=== PATIENT | female | born 1950 | race Caucasian/White ===

== ENCOUNTER 2019-08-03 09:00 | Outpatient (RCR) | payer MEDICARE, OTHER, SELFPAY | END 2019-08-03 09:05 | disposition home or self-care (01) | LOC: PT 09:00 | PROVIDERS: Visit Provider Family Medicine | DX: I89.0 Lymphedema, not elsewhere classified (principal) | CPT/HCPCS: 97140; 97163 ==

== ENCOUNTER → 2019-08-03 10:14 | Outpatient (CLI) | payer MEDICARE, OTHER, SELFPAY | PROVIDERS: Visit Provider Family Medicine | DX: N39.0 Urinary tract infection, site not specified (principal); B96.20 Unspecified Escherichia coli [E. coli] as the cause of diseases classified elsewhere | CPT/HCPCS: 87086; 87088; 87186 ==

== ENCOUNTER 2019-09-04 02:38 | Inpatient (IN) ==
--- NOTE | 2019-09-04 02:48 | Emergency Department Note ---
ED Disposition Clinical Impression: Hyperglycemia, COPD exacerbation, Septic shock Acute respiratory failure Qualifiers: Respiratory failure complication: hypoxia and hypercapnia Qualified Code(s): J96.01 - Acute respiratory failure with hypoxia Disposition: Admitted As Inpatient Condition on Discharge: Critical Referrals: Huber Grossman [Primary Care Provider] - - Critical Care Critical Care Time: Yes Attestation: On , the high probability of a clinically significant, sudden or life threatening deterioration of the following system(s) required my full and direct attention, intervention and personal management. The time I documented below is in addition to time spent performing reported procedures but includes the following listed in this critical care notation. Total Critical Care Time: 50 Vital system(s) involved:: Respiratory Failure, Shock (Septic) My critical care processes included: Assessment & monitoring of V/S, Initial and Re-exams, Data Review/Interpretation, Coordinating Care, Medication Orders and management, Documentation Medical Decision Making - Nii Inquiry Pt receiving controlled substance: No Vital Signs: 09/04/19 02:48 09/04/19 03:24 09/04/19 03:25 Temperature 97.7 F Temperature Source Oral Pulse Rate 84 85 Pulse Rate [Right Brachial] 107 H Respiratory Rate 24 Blood Pressure [Right Arm] 155/70 H Blood Pressure Mean [Right Arm] 98 Blood Pressure Source [Right Arm] Automatic Cuff Blood Pressure Position [Right Arm] Supine 02 Sat by Pulse Oximetry 87 L Oxygen Delivery Method Nasal Cannula Oxygen Flow Rate (LPM) 4 09/04/19 04:00 09/04/19 04:10 09/04/19 04:35 Temperature Temperature Source Pulse Rate 89 87 Pulse Rate [Right Brachial] 82 Respiratory Rate Blood Pressure [Right Arm] 115/58 L Blood Pressure Mean [Right Arm] 77 Blood Pressure Source [Right Arm] Blood Pressure Position [Right Arm] 02 Sat by Pulse Oximetry 98 Oxygen Delivery Method Oxygen Flow Rate (LPM) 09/04/19 04:40 09/04/19 04:52 09/04/19 05:02 Temperature Temperature Source Pulse Rate Pulse Rate [Right Brachial] 99 H 82 Respiratory Rate 22 Blood Pressure [Right Arm] 98/58 L 108/62 L Blood Pressure Mean [Right Arm] 71 77 Blood Pressure Source [Right Arm] Blood Pressure Position [Right Arm] 02 Sat by Pulse Oximetry 98 95 Oxygen Delivery Method Mechanical Ventilation Oxygen Flow Rate (LPM) 09/04/19 05:15 09/04/19 05:30 09/04/19 05:45 Temperature Temperature Source Pulse Rate Pulse Rate [Right Brachial] 86 63 72 Respiratory Rate 22 20 20 Blood Pressure [Right Arm] 98/68 L 98/41 L 98/43 L Blood Pressure Mean [Right Arm] 78 60 61 Blood Pressure Source [Right Arm] Blood Pressure Position [Right Arm] 02 Sat by Pulse Oximetry 97 94 L 93 L Oxygen Delivery Method Mechanical Ventilation Mechanical Ventilation Mechanical Ventilation Oxygen Flow Rate (LPM) 09/04/19 06:00 09/04/19 06:17 09/04/19 06:28 Temperature Temperature Source Pulse Rate Pulse Rate [Right Brachial] 72 73 73 Respiratory Rate 20 20 20 Blood Pressure [Right Arm] 79/56 L 83/60 L 85/69 L Blood Pressure Mean [Right Arm] 63 67 74 Blood Pressure Source [Right Arm] Blood Pressure Position [Right Arm] Supine 02 Sat by Pulse Oximetry 93 L 100 93 L Oxygen Delivery Method Mechanical Ventilation Mechanical Ventilation Mechanical Ventilation Oxygen Flow Rate (LPM) 09/04/19 06:40 09/04/19 06:54 09/04/19 07:16 Temperature Temperature Source Pulse Rate Pulse Rate [Right Brachial] 74 74 77 Respiratory Rate 20 20 20 Blood Pressure [Right Arm] 100/65 L 105/69 L 111/67 Blood Pressure Mean [Right Arm] 76 81 81 Blood Pressure Source [Right Arm] Automatic Cuff Automatic Cuff Automatic Cuff Blood Pressure Position [Right Arm] Supine Supine Supine 02 Sat by Pulse Oximetry 94 L 92 L 94 L Oxygen Delivery Method Mechanical Ventilation Mechanical Ventilation Mechanical Ventilation Oxygen Flow Rate (LPM) - Lab Data Lab Results 09/04/19 02:50: WBC 10.5, RBC 5.03, Hgb 14.9, Hct 51.7 H, MCV 102.9 H, MCH 29.7, MCHC 28.8 L, RDW 15.3, Plt Count 204, MPV 7.7, Neut % (Auto) 79.0, Lymph % (Auto) 14.3, [place] % (Auto) 5.2, Eos % (Auto) 1.0, Baso % (Auto) 0.5, Neut # (Auto) 8.3 H, Lymph # (Auto) 1.5, [place] # (Auto) 0.5, Eos # (Auto) 0.1, Baso # (Auto) 0.1 09/04/19 02:50: Sodium 143, Potassium 4.8, Chloride 101, Carbon Dioxide 41 H*, Anion Gap 5.8, BUN 13, Creatinine 0.81, Estimated Creat Clear 41, Estimated GFR 70, Est GFR ( Amer) 85, Glucose 298 H, Calcium 9.1, Total Bilirubin 0.1 L , AST 14 L, ALT 33, Alkaline Phosphatase 82, Troponin I < 0.02, Total Protein 7.0, Albumin 2.9 L, Globulin 4.1 H, Albumin/Globulin Ratio 0.7 L 09/04/19 02:50: Lactate 1.3 09/04/19 02:50: B-Natriuretic Peptide 83 09/04/19 02:59: Specimen Source R/r, O2 % 4, ABG pH 7.16 L*, ABG pCO2 115.5 H, ABG pO2 84.1, ABG HCO3 39.9 H, ABG Total CO2 43.4 H, ABG O2 Saturation 94, ABG Base Excess 11.1 H, Cesar Test Y 09/04/19 03:32: Urine Color Yellow, Urine Appearance Slightly cloudy, Urine pH 5.5, Ur Specific [place] >= 1.030, Urine Protein 1+, Urine Glucose (UA) 3+, Urine Ketones Negative, Urine Blood 3+, Urine Nitrate Negative, Urine Bilirubin Negative, Urine Urobilinogen 0.2, Ur Leukocyte Esterase 1+ A, Urine RBC 10-20, Urine WBC 5-10, Urine Bacteria 2+ 09/04/19 04:03: Specimen Source R/r, O2 % 80, ABG pH 7.16 L*, ABG pCO2 131.1 H, ABG pO2 64.0 L, ABG HCO3 45.6 H, ABG Total CO2 49.6 H, ABG O2 Saturation 88 L, ABG Base Excess 16.9 H, Cesar Test Y, Vent Rate 21 09/04/19 05:45: Specimen Source Right radial, O2 % 100, ABG pH 7.46 H, ABG pCO2 46.7 H, ABG pO2 144.3 H, ABG HCO3 32.2 H, ABG Total CO2 33.7 H, ABG O2 Saturation 99, ABG Base Excess 8.4 H, Cesar Test N/a, Vent Rate 20, Tidal Volume 500, PEEP 5 09/04/19 05:58: Troponin I 0.02 Result diagrams: 09/04/19 02:50 09/04/19 02:50 Orders (Tests/Meds): ED MEDICATIONS Generic Name Dose Route Start Last Admin Trade Name Diegoq PRN Reason Stop Dose Admin Albuterol/Ipratropium 3 ml 09/04/19 03:30 09/04/19 04:00 Duoneb 3ml Neb IH 09/04/19 03:51 3 ml Q20M DEVAN Administration Azithromycin 500 mg/ Sodium 250 mls @ 250 mls/hr 09/04/19 04:00 09/04/19 03:55 Chloride IV 09/18/19 03:59 250 mls/hr Q24H DEVAN Administration Protocol Ertapenem 1 gm/ Sodium 50 mls @ 100 mls/hr 09/04/19 05:15 09/04/19 05:48 Chloride IV 09/18/19 05:14 100 mls/hr Q24H DEVAN Administration Protocol Propofol 100 mls @ 13.717 mls/hr 09/04/19 05:30 09/04/19 06:36 Diprivan 10mg/Ml 100ml Bottle IV 10/04/19 05:29 13.717 mls/hr .Q7H18M DEVAN Administration Protocol 10 MCG/KG/MIN Lactated Ringer's 1,000 mls @ 999 mls/hr 09/04/19 06:30 09/04/19 06:23 Lactated Ringer's 1000 Ml Bag IV 09/04/19 07:30 999 mls/hr .Q1H1M DEVAN Administration Lactated Ringer's 6,860 mls @ 3,430 mls/hr 09/04/19 06:45 09/04/19 06:50 Lactated Ringer's 1000 Ml Bag 30 ml/kg infuse over 2 hr (6860 ml) 09/04/19 08:44 3,430 mls/hr IV Administration .Q2H ONE Sodium Chloride 1,000 mls @ 999 mls/hr 09/04/19 07:00 09/04/19 04:30 Sod Chlor 0.9% 1000ml Bag IV 09/04/19 08:00 999 mls/hr .Q1H1M DEVAN Administration Discontinued Medications Generic Name Dose Route Start Last Admin Trade Name Michele PRN Reason Stop Dose Admin Albuterol/Ipratropium 3 ml 09/04/19 02:44 09/04/19 03:00 Duoneb 3ml Neb IH 09/04/19 02:45 3 ml ONCE ONE Administration Furosemide 40 mg 09/04/19 03:46 09/04/19 03:54 Lasix 40mg/4ml Vial IV 09/04/19 03:47 40 mg ONCE ONE Administration Ketamine HCl 100 mg 09/04/19 04:30 09/04/19 05:26 Ketamine 500mg/10ml Vial IV 09/04/19 04:31 100 mg ONCE ONE Administration Methylprednisolone Sodium Succinate 125 mg 09/04/19 02:44 09/04/19 03:11 Solu-Medrol 125mg/2ml Vial IV 09/04/19 02:45 125 mg ONCE ONE Administration Succinylcholine Chloride 200 mg 09/04/19 04:30 09/04/19 05:27 Anectine 20mg/Ml 10ml Mdv IV 09/04/19 04:31 200 mg ONCE ONE Administration ORDERS Category Date Time Status CXR --portable [XR chest portable] Stat Exams 09/04/19 04:35 Taken XR chest portable Stat Exams 09/04/19 02:43 Taken Troponin I Q3H Lab 09/04/19 08:45 Ordered Blood Culture Stat Micro 09/04/19 02:50 Received Urine Culture Stat Micro 09/04/19 03:32 Received Arterial Blood Gas Stat RT 09/04/19 07:16 Ordered - Radiology Data #1 Image(s): Chest Image Reviewed: Yes I reviewed the patient's radiology image poor penetration, poor inspiration. cardiomegaly. increased interstitial markings bilaterally. no definite effusions. no old films for comparison. #2 Image(s): Chest Image Reviewed: Yes I reviewed the patient's radiology image Endotracheal tube in good position. Questionable left basilar infiltrate. - ECG Data Tracing #1 EKG interpreted by Guille Quinn MD: Rhythm: sinus tachycardia Rate: 105 [place]: normal Ectopy: none Conduction: normal ST Segment Changes: none T Wave Changes: none Q Waves: none No evidence of acute ischemia or injury Low voltage QRS - Physician Consults Physician Consulted: Elba AGUILAR stain maker Time: 05:30 Reason -: Transfer to another facilty Comment/Response: No available beds, a very long wait list, it would be at least a couple of days before they could accept transfer Additional Consult: Heather Time: 05:44 Reason -: Admission Comment/Response: Agrees to admit the patient to the hospital. We discussed the patient's clinical information, including history, exam, laboratory and radiology results and ED course. Per hospital procedure, I will write temporary bridge inpatient orders on the patient. Specific orders requested by the admitting physician: Admit to ICU, continue ventilator, continue antibiotics, steroids, nebulizer treatments. - Reevaluation(s) Time: 03:10 Reevaluation #1: Pain still present, but improved after Dilaudid - Tissue Perfus/Sepsis Re-Eval Sepsis Re-Evaluation Performed: Yes Date Performed: 09/04/19 Time Performed: 06:49 Medical Decision Narrative: 4:30 AM: Second ABG was worse than first. Patient is also more somnolent. Discussed intubation with family, they are in agreement. Unable to discuss with patient due to mental status. Rapid sequence intubation performed. 4:50 AM: Postintubation portable chest x-ray shows endotracheal tube above the [place], but low in the trachea. Tube had slipped down to 23 cm at the teeth, it was withdrawn to 21 cm teeth and x-ray repeated with improved position of the tube just below the clavicles. 5:00 AM: Discussed disposition with family. Patient's primary care provider goes to [facility] and family would prefer to attempt transfer there. Call placed, put on a wait list (#4 on the list). Discussed penicillin allergy, family states her allergy is anaphylactic. Discussed antibiotic coverage for possible pneumonia with [facility] pharmacist, in light of allergies. He recommends Invanz plus Zithromax. 5:35 AM: [facility] contacted. They have an ICU weight of at least 35 hours. General Adult HPI - General Stated complaint: LETHARGIC; SHORTNESS OF BREATH Time Seen by Provider: 09/04/19 02:38 - History of Present Illness HPI narrative: Brought in by ambulance for shortness of air and lethargy. History from patient is limited due to mental status. She has a reported history of COPD with CO2 retention, she is on home oxygen and has CPAP at home as well. She reports that she is a former smoker. She reports recent cough and shortness of breath. EMS reports that when they arrived pulse ox on 4 L was low 80s. On 6 L they were able to get it up to the upper 80s. They then put her on a nonrebreather mask during transport. - Related Data Home Medications Medication Instructions Recorded Confirmed Olmesartan Medoxomil [Benicar] 20 mg PO DAILY 06/11/19 09/04/19 Omeprazole [Omeprazole 20mg 20 mg PO DAILY 06/11/19 09/04/19 Capsule] diazePAM [diazePAM 5mg Tablet] 1 tab PO BID PRN 06/11/19 09/04/19 dilTIAZem HCl [Dilt-Xr] 1 cap PO DAILY 06/11/19 09/04/19 Aspirin [Aspirin 81mg EC Tab] 81 mg PO DAILY 09/04/19 09/04/19 Budesonide/Formoterol Fumarate 2 puffs IH BID 09/04/19 09/04/19 [Symbicort 160-4.5 Mcg Inhaler] Cetirizine HCl [Zyrtec] 10 mg PO DAILY 09/04/19 09/04/19 Ergocalciferol (Vitamin D2) 1 cap PO WEEKLY 09/04/19 09/04/19 [Drisdol 50,000 units (1.25mg) capsule] Furosemide [Furosemide 40MG tAB] 40 mg PO DAILY 09/04/19 09/04/19 Potassium Chloride 10 meq PO DAILY 09/04/19 09/04/19 Rivaroxaban [Xarelto 20mg Tablet*] 20 mg PO DAILY 09/04/19 09/04/19 Rosuvastatin Calcium 10 mg PO HS 09/04/19 09/04/19 glipiZIDE [Glucotrol Xl] 5 mg PO BID 09/04/19 09/04/19 predniSONE [Deltasone 10mg tablet] 60 mg PO DAILY 09/04/19 09/04/19 Allergies Allergy/AdvReac Type Severity Reaction Status Date / Time ciprofloxacin [From Cipro] Allergy Verified 06/11/19 16:05 codeine Allergy Verified 06/11/19 16:05 Gadolinium-Containing Allergy Verified 06/11/19 16:05 Contrast Medi Iodinated Contrast Media - Allergy Verified 06/11/19 16:05 Oral and Penicillins Allergy Verified 06/11/19 16:05 [facility] History - Hepatitis A Screen Attestation statement:: This patient has been screened for Hepatitis A risk factors. I have reviewed the patient's past medical history: Yes 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: Reports:: Cancer (FACE) Fractures: Yes (FOOT) - Social History Alcohol Intake: never Occupational Status: other ROS Obtained: Yes unobtainable due to mental status Physical Exam - General General appearance: lethargic, other Comment: Lays with eyes closed, but speaks and answers questions. Speech is moderately slurred, at times difficult to understand, other times much more clear. - Head Head exam: atraumatic, normocephalic - ENT ENT exam: Present: mucous membranes moist - Neck Neck exam: Present: normal inspection, full ROM, trachea midline - Respiratory Respiratory exam: Present: accessory muscle use, other (Diminished breath sounds bilaterally) - Cardiovascular Cardiovascular exam: Present: tachycardia - Abdominal Exam Abdominal exam: Present: soft. Absent: tenderness - Extremities Exam Extremities exam: Present: pedal edema, other (3+ edema of legs) - Neurological Exam Neurological exam: Present: other (Lethargic) - Skin Skin exam: Present: warm, dry Procedures - Miscellaneous Procedure Procedure Performed: Endotracheal Intubation Performed by: GUILLE QUINN Consent: The procedure was performed in an emergent situation. Patient identity confirmed: arm band Indications: respiratory failure Intubation method: Direct laryngoscopy with neuromuscular blockade (RSI) Sedatives: Ketamine 100 mg Paralytic: Succinylcholine 200 mg Laryngoscope: Direct Tube size: 7.5 mm Tube type: cuffed Number of attempts: 1 Cords visualized: yes Post-procedure assessment: chest rise and CO2 detector Breath sounds: equal and absent over the epigastrium Cuff inflated: yes ETT to teeth: 20 cm Tube secured with: ETT james Chest x-ray interpreted by me. Chest x-ray findings: endotracheal tube in appropriate position Patient tolerance: Patient tolerated the procedure well with no immediate complications.
[2019-09-04 03:00] LABS: ABG Base Excess 11.1 mmol/L (-2.4-2.3); ABG HCO3 39.9 mmhg (22.0-26.0); ABG Oxygen Saturation 94 % (90-100); ABG PO2 84.1 mmhg (80-100); ABG TCO2 43.4 mmhg (23-27)
[2019-09-04 03:08] LABS: Basophils # 0.1 K/mm3 (0-0.2); Basophils % 0.5 % (0.1-2.0); Eosinophils # 0.1 K/mm3 (0.0-0.4); Hematocrit 51.7 % (37.0-47.0); Hemoglobin 14.9 g/dL (12.2-16.2); Lymphocytes # 1.5 K/mm3 (0.7-4.5); Lymphocytes % 14.3 % (10-50); Mean Corpuscular HGB Conc 28.8 g/dL (31.8-35.4); Mean Corpuscular Volume 102.9 fl (81-99); Mean Platelet Volume 7.7 fl (7.4-10.4); Monocytes # 0.5 K/mm3 (0.1-1.0); Monocytes % 5.2 % (1.7-9.3); Neutrophils # 8.3 K/mm3 (1.8-7.8); Platelet Count 204 K/mm3 (142-424); Red Blood Count 5.03 M/mm3 (4.20-5.40); Red Cell Distribution Width 15.3 % (11.5-17.5); White Blood Count 10.5 K/mm3 (4.8-10.8)
[2019-09-04 03:20] LABS: ABG PH 7.16 mmol/L (7.35-7.45); Allen's Test Y; Oxygen 4 %
[2019-09-04 03:21] LABS: ABG PCO2 115.5 mmhg (35.0-45.0)
[2019-09-04 03:24] LABS: Alanine Aminotransferase 33 U/L (12-78); Albumin Level 2.9 gm/dL (3.4-5.0); Albumin/Globulin Ratio 0.7 (1.1-1.8); Alkaline Phosphatase 82 U/L (46-116); Anion Gap 5.8 mEq/L (5-15); Aspartate Amino Transferase 14 U/L (15-37); Bilirubin,Total 0.1 mg/dL (0.2-1.0); Blood Urea Nitrogen 13 mg/dL (7-18); Calcium 9.1 mg/dL (8.5-10.1); Carbon Dioxide 41 mmol/L (21.0-32.0); Chloride 101 mmol/L (98-107); Globulin 4.1 gm/dl (1.3-3.2); Glucose 298 mg/dL (74-106); Sodium 143 mmol/L (136-145)
[2019-09-04 03:58] LABS: Microscopic, Urine URINE MICROSCOPIC (MICROSCOPIC)
[2019-09-04 04:00] LABS: Bilirubin,Urine Negative (Negative); Blood, Urine 3+ (Negative); Color,Urine YELLOW (Yellow); Glucose,Urine (UA) 3+ (Negative); Ketones,Urine Negative (Negative); Leukocyte Esterase,Urine 1+ (Negative); PH,Urine 5.5 (5.0-8.5); Protein,Urine 1+ (Negative); Specific Gravity, Urine >= 1.030 (1.005-1.030); Urobilinogen,Urine 0.2 EU/dl (0.2)
[2019-09-04 04:02] LABS: Appearance,Urine Slightly Cloudy (Clear)
[2019-09-04 04:05] LABS: ABG Base Excess 16.9 mmol/L (-2.4-2.3); ABG HCO3 45.6 mmhg (22.0-26.0); ABG Oxygen Saturation 88 % (90-100); ABG TCO2 49.6 mmhg (23-27)
[2019-09-04 04:05] LABS: Bacteria,Urine 2+ /lpf
[2019-09-04 04:07] LABS: Oxygen 80 %
[2019-09-04 04:08] LABS: Allen's Test Y
[2019-09-04 04:10] LABS: ABG PCO2 131.1 mmhg (35.0-45.0); ABG PH 7.16 mmol/L (7.35-7.45)
[2019-09-04 06:09] LABS: ABG Base Excess 8.4 mmol/L (-2.4-2.3); ABG HCO3 32.2 mmhg (22.0-26.0); ABG Oxygen Saturation 99 % (90-100); ABG PCO2 46.7 mmhg (35.0-45.0); ABG PH 7.46 mmol/L (7.35-7.45); ABG PO2 144.3 mmhg (80-100); ABG TCO2 33.7 mmhg (23-27)
[2019-09-04 06:11] LABS: Oxygen 100 %; PEEP 5; Tidal Volume 500
[2019-09-04 10:52] LABS: ABG Base Excess 12.2 mmol/L (-2.4-2.3); ABG HCO3 34.7 mmhg (22.0-26.0); ABG Oxygen Saturation 94 % (90-100); ABG PO2 56.9 mmhg (80-100); ABG TCO2 35.9 mmhg (23-27)
[2019-09-04 10:53] LABS: Oxygen 32 %; PEEP 5; Tidal Volume 450
[2019-09-04 10:54] LABS: ABG PH 7.55 mmol/L (7.35-7.45)
--- NOTE | 2019-09-04 11:10 | History & Physical Report ---
*Admission Date: 09/04/19 *Chief complaint: AMS *History of present illness: Ms. Lester is a 69-year-old female with morbid obesity and obstructive sleep apnea who presented due to worsening confusion and altered mental status overnight. Patient wears a CPAP and lives with her son. He states that she has been having episodes where she is been acting differently lately. Yesterday she was more confused and not acting herself and the family was concerned for something being wrong so they brought her to the ER. They deny any acute illness with cough, fever, nausea vomiting or diarrhea. On presentation she was found to have some mottling in her feet and to be in acute hypercarbic respiratory failure with altered mental status. BiPAP was attempted in the ER with poor response leading to intubation. Patient was intubated in the ER with significant improvement in her respiratory acidosis and improvement in ability to ventilate. Attempts were made to transfer to tertiary care given the complexity of the patient and these were unsuccessful at this time. She is awaiting transfer and placed on a waiting list for [facility] pending availability of an ICU bed. On my assessment she winces to pain but is sedated on propofol. Continuing to require ventilatory support. Family at bedside who gave good history about patient's medical concerns of late. 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 Is poorly compliant with her medical treatment. Takes Valium 1-2 times a day as needed. Has been having worsening health since the passing of her late and retiring from . They are concerned for her need for subspecialty care and the complexities of her medical care. [facility] History I have reviewed the patient's past medical history: Yes 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: Reports:: Cancer (FACE), Home Oxygen *Have you ever received a pneumonia vaccine?: Yes *Have you received a flu vaccine this season?: Yes Fractures: Yes (FOOT) - *Social History Alcohol Intake: never Substance Use Type: denies use *Occupational Status:: other *Travel in the last 8 weeks: None Family Hx:: Unable to obtain Review of Systems - Review of Systems Review of systems:: pertinent systems reviewed and negative unless documented below Meds Home Medications Medication Instructions Recorded Confirmed Type Olmesartan Medoxomil [Benicar] 20 mg PO DAILY 06/11/19 09/04/19 History Omeprazole [Omeprazole 20mg 20 mg PO DAILY 06/11/19 09/04/19 History Capsule] diazePAM [diazePAM 5mg Tablet] 1 tab PO BID PRN 06/11/19 09/04/19 History dilTIAZem HCl [Dilt-Xr] 1 cap PO DAILY 06/11/19 09/04/19 History Aspirin [Aspirin 81mg EC Tab] 81 mg PO DAILY 09/04/19 09/04/19 History Budesonide/Formoterol Fumarate 2 puffs IH BID 09/04/19 09/04/19 History [Symbicort 160-4.5 Mcg Inhaler] Cetirizine HCl [Zyrtec] 10 mg PO DAILY 09/04/19 09/04/19 History Ergocalciferol (Vitamin D2) 1 cap PO WEEKLY 09/04/19 09/04/19 History [Drisdol 50,000 units (1.25mg) capsule] Furosemide [Furosemide 40MG tAB] 40 mg PO DAILY 09/04/19 09/04/19 History Potassium Chloride 10 meq PO DAILY 09/04/19 09/04/19 History Rivaroxaban [Xarelto 20mg Tablet*] 20 mg PO DAILY 09/04/19 09/04/19 History Rosuvastatin Calcium 10 mg PO HS 09/04/19 09/04/19 History glipiZIDE [Glucotrol Xl] 5 mg PO BID 09/04/19 09/04/19 History predniSONE [Deltasone 10mg tablet] 60 mg PO DAILY 09/04/19 09/04/19 History Allergies Allergy/AdvReac Type Severity Reaction Status Date / Time ciprofloxacin [From Cipro] Allergy Verified 06/11/19 16:05 codeine Allergy Verified 06/11/19 16:05 Gadolinium-Containing Allergy Verified 06/11/19 16:05 Contrast Medi Iodinated Contrast Media - Allergy Verified 06/11/19 16:05 Oral and Penicillins Allergy Verified 06/11/19 16:05 Exam Vital signs and Labs for Last 24 Hours: Temp Pulse Resp BP Pulse Ox 97.7 F 75 20 109/74 L 94 L 09/04/19 07:37 09/04/19 08:18 09/04/19 07:37 09/04/19 07:52 09/04/19 08:10 Laboratory Results - last 24 hr 09/04/19 02:50: WBC 10.5, RBC 5.03, Hgb 14.9, Hct 51.7 H, MCV 102.9 H, MCH 29.7, MCHC 28.8 L, RDW 15.3, Plt Count 204, MPV 7.7, Neut % (Auto) 79.0, Lymph % (Auto) 14.3, [place] % (Auto) 5.2, Eos % (Auto) 1.0, Baso % (Auto) 0.5, Neut # (Auto) 8.3 H, Lymph # (Auto) 1.5, [place] # (Auto) 0.5, Eos # (Auto) 0.1, Baso # (Auto) 0.1 09/04/19 02:50: Sodium 143, Potassium 4.8, Chloride 101, Carbon Dioxide 41 H*, Anion Gap 5.8, BUN 13, Creatinine 0.81, Estimated Creat Clear 41, Estimated GFR 70, Est GFR ( Amer) 85, Glucose 298 H, Calcium 9.1, Total Bilirubin 0.1 L , AST 14 L, ALT 33, Alkaline Phosphatase 82, Troponin I < 0.02, Total Protein 7.0, Albumin 2.9 L, Globulin 4.1 H, Albumin/Globulin Ratio 0.7 L 09/04/19 02:50: Lactate 1.3 09/04/19 02:50: B-Natriuretic Peptide 83 09/04/19 02:59: Specimen Source R/r, O2 % 4, ABG pH 7.16 L*, ABG pCO2 115.5 H, ABG pO2 84.1, ABG HCO3 39.9 H, ABG Total CO2 43.4 H, ABG O2 Saturation 94, ABG Base Excess 11.1 H, Cesar Test Y 09/04/19 03:32: Urine Color Yellow, Urine Appearance Slightly cloudy, Urine pH 5.5, Ur Specific [place] >= 1.030, Urine Protein 1+, Urine Glucose (UA) 3+, Urine Ketones Negative, Urine Blood 3+, Urine Nitrate Negative, Urine Bilirubin Negative, Urine Urobilinogen 0.2, Ur Leukocyte Esterase 1+ A, Urine RBC 10-20, Urine WBC 5-10, Urine Bacteria 2+ 09/04/19 04:03: Specimen Source R/r, O2 % 80, ABG pH 7.16 L*, ABG pCO2 131.1 H, ABG pO2 64.0 L, ABG HCO3 45.6 H, ABG Total CO2 49.6 H, ABG O2 Saturation 88 L, ABG Base Excess 16.9 H, Cesar Test Y, Vent Rate 21 09/04/19 05:45: Specimen Source Right radial, O2 % 100, ABG pH 7.46 H, ABG pCO2 46.7 H, ABG pO2 144.3 H, ABG HCO3 32.2 H, ABG Total CO2 33.7 H, ABG O2 Saturation 99, ABG Base Excess 8.4 H, Cesar Test N/a, Vent Rate 20, Tidal Volume 500, PEEP 5 09/04/19 05:58: Troponin I 0.02 09/04/19 09:00: Troponin I < 0.02 09/04/19 10:45: Specimen Source Right radial, O2 % 32, ABG pH 7.55 H, ABG pCO2 41.0, ABG pO2 56.9 L, ABG HCO3 34.7 H, ABG Total CO2 35.9 H, ABG O2 Saturation 94, ABG Base Excess 12.2 H, Cesar Test N/a, Vent Rate 16, Tidal Volume 450, PEEP 5 I & O for Last 24 hours: Intake & Output 09/01/19 09/02/19 09/03/19 09/04/19 23:59 23:59 23:59 23:59 Intake Total 4200 / 4200 Output Total 700 / 700 Balance 3500 / 3500 Weight 150.7 kg - Constitutional no acute distress, morbidly obese - *Routine HEENT Exam Head: Present: cushingoid faces Eye: Present: PERRL ENT: Present: mucous membranes moist - *Routine Neck Exam Present: supple. Absent: lymphadenopathy Comments: Very large neck circumference - *Routine Respiratory Exam Present: distant breath sounds Comments: Poor inspiration, crackles in bases bilaterally - *Routine Cardiovascular Exam Present: RRR Comments: Distant heart sounds - *Routine Abdominal Exam Present: soft, normoactive bowel sounds. Absent: tenderness Comments: Obese - *Routine Extremities Exam Present: edema (3+ to thigh). Absent: cyanosis, clubbing Comments: Erythema with venous stasis changes bilateral shins and feet, no petechiae or purpura - *Routine Skin Exam Present: warm. Absent: rash - *Routine Neurological Exam Sedated, winces to pain, does not vocalize. Does not respond to voice. Does not spontaneously open eyes Assessment and Plan (1) Acute on chronic respiratory failure with hypoxemia Current visit: Yes Status: Acute Category: Medical Code(s): J96.21 - Acute and chronic respiratory failure with hypoxia (2) Hypercapnia Current visit: Yes Status: Acute Category: Medical Code(s): R06.89 - Other abnormalities of breathing (3) Mixed acid base balance disorder Current visit: Yes Status: Acute Category: Medical Code(s): E87.4 - Mixed disorder of acid-base balance (4) Acute respiratory distress syndrome (ARDS) Current visit: Yes Status: Acute Category: Medical Code(s): J80 - Acute respiratory distress syndrome PaO2 to FiO2 ratio of 190. Moderate ARDS. -Ventilation treatment per [email or web address] protocol. Transition tidal volume to 8 mill per kg of ideal body weight. Recommended range for 6 to 8 mL's per kg of 330 to 440 mL tidal volume. Respiratory acidosis-briskly responded to intubation and ventilation. Repeat gas most recently with respiratory alkalosis due to overcorrection to normal physiologic CO2. Made further adjustment with rate of 12, tidal volume 400 from initial setting of rate of 20, tidal volume 500. -Patient's mortality based on her large classification of greater than 30% - Assessment and plan all Dx Assessment and Plan for all problems:: 69-year-old female with acute on chronic hypoxemic respiratory failure with hypercapnia and respiratory acidosis. Chronic metabolic alkalosis as compensation for her chronic low-level respiratory acidosis. Had acute worsening it appears of her respiratory acidosis with CO2 retention overnight leading to her obtundation, presentation, intubation. Chest x-ray concerning for questionable pneumonia. Started on broad-spectrum antibiotics based on patient's allergies. Sliding scale insulin for diabetes management Continue to adjust ventilator as needed per [employer] protocol. Has moderate ARDS. Repeat labs this evening and will assess thyroid function his family is concerned she has a thyroid disorder that is untreated. Of note, her tox screen shows benzos which may have been a complicating factor in her respiratory failure. Continue sedation with propofol for Rass goal of 0-1. 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 Patient is critically ill with poor prognosis. Lovenox for DVT prophylaxis, SCUDs as well N.p.o. Supplemental oxygen as needed on ventilator with goal greater than 92% for titration Remains full code Protonix for GI prophylaxis Repeat ABG this evening to monitor for stability on ventilator settings. Currently on a rate of 12 volume of 400 which is approximately 7 mL's per kg of ideal body weight. Lab work in the morning to monitor kidney function and electrolytes Critical CARE time: 30 minutes the high probability of a clinically significant, sudden or life threatening deterioration of patient required my full and direct attention, intervention and personal management. The time I documented below is in addition to time spent performing reported procedures but includes the following listed in this critical care notation. Critical care consisting of ventilator management, hemodynamic management, sedation management, metabolic disturbance management and diabetes management
[2019-09-04 11:14] LABS: Amphetamine/Metha Screen,Urine Negative ng/mL (<1000); Barbiturates Screen,Urine Negative ng/mL (<200); Benzodiazepines Screen,Urine Positive ng/mL (<200); Cannabinoid Screen,Urine Negative ng/mL (<50); Cocaine Screen,Urine Negative ng/mL (<300); Methadone Screen,Urine Negative ng/mL (<300); Opiate Screen,Urine Negative ng/mL (<300); Phencyclidine Screen,Urine Negative ng/mL (<25)
--- NOTE | 2019-09-04 11:32 | Pharmacy Consult Notes ---
[facility] Pharmacy VTE Monitoring - Patient Demographics Admission date: 09/04/19 Report Date: 09/04/19 Time: 11:31 Allergies/Adverse Reactions: Patient Allergies ciprofloxacin [From Cipro] Allergy (Verified 06/11/19 16:05) codeine Allergy (Verified 06/11/19 16:05) Gadolinium-Containing Contrast Medi Allergy (Verified 06/11/19 16:05) Iodinated Contrast Media - Oral and Allergy (Verified 06/11/19 16:05) Penicillins Allergy (Verified 06/11/19 16:05) Height: 1.57 m Weight: 150.7 kg Patient Problems: Current Active Problems Acute respiratory failure (Acute) Hyperglycemia (Acute) COPD exacerbation (Acute) Septic shock (Acute) - VTE Risk Labs: VTE Related Lab Results Hgb 14.9 g/dL (12.2-16.2) 09/04/19 02:50 Hct 51.7 % (37.0-47.0) H 09/04/19 02:50 Plt Count 204 K/mm3 (142-424) 09/04/19 02:50 BUN 13 mg/dL (7-18) 09/04/19 02:50 Creatinine 0.81 mg/dL (0.55-1.02) 09/04/19 02:50 Estimated Creat Clear 41 mL/min (50-200) 09/04/19 02:50 VTE Score: 7 VTE Risk Level: Moderate Risk - Prophylaxis VTE Prophylaxis Ordered?: Yes Types of VTE Prophylaxis: TEDS Knee High Location of Applied Device: Bilateral Lower Extremeties - VTE Diagnosis Confirmed Treatment or plan recommended: Continue Current Treatment
[2019-09-04 14:21] LABS: ABG Base Excess 8.5 mmol/L (-2.4-2.3); ABG HCO3 32.8 mmhg (22.0-26.0); ABG Oxygen Saturation 91 % (90-100); ABG PH 7.43 mmol/L (7.35-7.45); ABG PO2 56.3 mmhg (80-100); ABG TCO2 34.4 mmhg (23-27)
[2019-09-04 14:24] LABS: Oxygen 32 %; PEEP 5; Tidal Volume 400
[2019-09-04 14:25] LABS: ABG PCO2 50.6 mmhg (35.0-45.0)
[2019-09-04 19:58] LABS: ABG Base Excess 13.3 mmol/L (-2.4-2.3); ABG HCO3 37.7 mmhg (22.0-26.0); ABG Oxygen Saturation 87 % (90-100); ABG PH 7.43 mmol/L (7.35-7.45); ABG TCO2 39.4 mmhg (23-27)
[2019-09-04 19:59] LABS: Allen's Test Y; Oxygen 32 %; PEEP 5; Tidal Volume 400
[2019-09-04 20:47] LABS: Basophils % 0.1 % (0.1-2.0); Eosinophils # 0.1 K/mm3 (0.0-0.4); Eosinophils % 0.9 % (0.1-12.0); Hematocrit 46.2 % (37.0-47.0); Lymphocytes # 0.7 K/mm3 (0.7-4.5); Lymphocytes % 10.8 % (10-50); Mean Corpuscular HGB Conc 30.4 g/dL (31.8-35.4); Mean Corpuscular Volume 99.7 fl (81-99); Mean Platelet Volume 8.8 fl (7.4-10.4); Monocytes # 0.3 K/mm3 (0.1-1.0); Neutrophils # 5.3 K/mm3 (1.8-7.8); Neutrophils % 84.1 % (37.0-80.0); Platelet Count 173 K/mm3 (142-424); Red Blood Count 4.64 M/mm3 (4.20-5.40); Red Cell Distribution Width 15.3 % (11.5-17.5); White Blood Count 6.3 K/mm3 (4.8-10.8)
[2019-09-04 20:52] LABS: ABG PCO2 58.3 mmhg (35.0-45.0)
[2019-09-04 20:57] LABS: Anion Gap 10.3 mEq/L (5-15); Calcium 8.7 mg/dL (8.5-10.1); Thyroid Stimulating Hormone 1.7 uIU/ml (0.358-3.740)
[2019-09-05 06:22] LABS: ABG Base Excess 5.7 mmol/L (-2.4-2.3); ABG Oxygen Saturation 93 % (90-100); ABG PH 7.36 mmol/L (7.35-7.45); ABG PO2 68.4 mmhg (80-100); ABG TCO2 32.8 mmhg (23-27)
[2019-09-05 06:24] LABS: Allen's Test ACCEPTABLE; Oxygen 40 %; PEEP 5; Tidal Volume 400
[2019-09-05 06:26] LABS: ABG PCO2 55.7 mmhg (35.0-45.0)
[2019-09-05 06:47] LABS: Albumin Level 2.4 gm/dL (3.4-5.0); Albumin/Globulin Ratio 0.7 (1.1-1.8); Anion Gap 9.3 mEq/L (5-15); Bilirubin,Total 0.2 mg/dL (0.2-1.0); Calcium 8.5 mg/dL (8.5-10.1); Globulin 3.6 gm/dl (1.3-3.2)
[2019-09-05 06:59] LABS: Basophils % 0.1 % (0.1-2.0); Eosinophils % 0.1 % (0.1-12.0); Hematocrit 46.5 % (37.0-47.0); Lymphocytes # 0.8 K/mm3 (0.7-4.5); Lymphocytes % 9.4 % (10-50); Mean Corpuscular HGB Conc 29.7 g/dL (31.8-35.4); Mean Corpuscular Volume 100.5 fl (81-99); Mean Platelet Volume 8.4 fl (7.4-10.4); Monocytes # 0.5 K/mm3 (0.1-1.0); Neutrophils # 6.9 K/mm3 (1.8-7.8); Neutrophils % 84.4 % (37.0-80.0); Platelet Count 172 K/mm3 (142-424); Red Blood Count 4.63 M/mm3 (4.20-5.40)
[2019-09-05 07:00] LABS: Hemoglobin 13.8 g/dL (12.2-16.2); White Blood Count 8.2 K/mm3 (4.8-10.8)
--- NOTE | 2019-09-05 07:17 | Progress Note ---
Internal Medicine - PN: Subj *Date: 09/05/19 *Time: 07:15 Interval history: Events of yesterday noted. Overnight patient was stable and comfortable on the ventilator. Minimal sedation in use. Family member at bedside. Exam Vital signs and Labs for Last 24 Hours: Temp Pulse Resp BP Pulse Ox 98.5 F 95 H 17 121/73 89 L 09/05/19 06:00 09/05/19 07:01 09/05/19 06:00 09/05/19 06:00 09/05/19 07:01 Laboratory Results - last 24 hr 09/04/19 09:00: Troponin I < 0.02 09/04/19 10:45: Specimen Source Right radial, O2 % 32, ABG pH 7.55 H, ABG pCO2 41.0, ABG pO2 56.9 L, ABG HCO3 34.7 H, ABG Total CO2 35.9 H, ABG O2 Saturation 94, ABG Base Excess 12.2 H, Cesar Test N/a, Vent Rate 16, Tidal Volume 450, PEEP 5 09/04/19 10:57: Urine Opiates Screen Negative, Urine Methadone Screen Negative, Ur Barbituates Screen Negative, Ur Phencyclidine Scrn Negative, Ur Amphetamines Screen Negative, U Benzodiazepines Scrn Positive H, Urine Cocaine Screen Negative, U Marijuana (THC) Screen Negative 09/04/19 11:26: POC Glucose 304 H* 09/04/19 13:57: Specimen Source Right radial, O2 % 32, ABG pH 7.43, ABG pCO2 50.6 H, ABG pO2 56.3 L, ABG HCO3 32.8 H, ABG Total CO2 34.4 H, ABG O2 Saturation 91, ABG Base Excess 8.5 H, Cesar Test N/a, Vent Rate 12, Tidal Volume 400, PEEP 5 09/04/19 16:37: POC Glucose 282 H 09/04/19 19:57: Specimen Source R/r, O2 % 32, ABG pH 7.43, ABG pCO2 58.3 H, ABG pO2 51.0 L, ABG HCO3 37.7 H, ABG Total CO2 39.4 H, ABG O2 Saturation 87 L*, ABG Base Excess 13.3 H, Cesar Test Y, Vent Rate 12, Tidal Volume 400, PEEP 5 09/04/19 20:30: WBC 6.3 D, RBC 4.64, Hgb 14.0, Hct 46.2, MCV 99.7 H, MCH 30.3, MCHC 30.4 L, RDW 15.3, Plt Count 173, MPV 8.8, Neut % (Auto) 84.1 H, Lymph % (Auto) 10.8, [place] % (Auto) 4.0, Eos % (Auto) 0.9, Baso % (Auto) 0.1, Neut # (Auto) 5.3, Lymph # (Auto) 0.7, [place] # (Auto) 0.3, Eos # (Auto) 0.1, Baso # (Auto) 0.0 09/04/19 20:30: Sodium 140, Potassium 4.3, Chloride 99, Carbon Dioxide 35 H, Anion Gap 10.3, BUN 16, Creatinine 0.84, Estimated Creat Clear 41, Estimated GFR 67, Est GFR ( Amer) 81, Glucose 307 H, Calcium 8.7, Magnesium 1.4, TSH 1.70 09/04/19 20:30: Hemoglobin A1c 8.5 H 09/04/19 21:35: POC Glucose 293 H 09/05/19 06:05: WBC 8.2 D, RBC 4.63, Hgb 13.8, Hct 46.5, MCV 100.5 H, MCH 29.9, MCHC 29.7 L, RDW 15.0, Plt Count 172, MPV 8.4, Neut % (Auto) 84.4 H, Lymph % (Auto) 9.4 L, [place] % (Auto) 6.0, Eos % (Auto) 0.1, Baso % (Auto) 0.1, Neut # (Auto) 6.9, Lymph # (Auto) 0.8, [place] # (Auto) 0.5, Eos # (Auto) 0.0, Baso # (Auto) 0.0 09/05/19 06:05: Sodium 139, Potassium 4.3, Chloride 99, Carbon Dioxide 35 H, Anion Gap 9.3, BUN 17, Creatinine 0.81, Estimated Creat Clear 41, Estimated GFR 70, Est GFR ( Amer) 85, Glucose 325 H, Calcium 8.5, Magnesium 2.0 D, Total Bilirubin 0.2, AST 58 H D, ALT 26, Alkaline Phosphatase 64, Total Protein 6.0 L, Albumin 2.4 L D, Globulin 3.6 H, Albumin/Globulin Ratio 0.7 L 09/05/19 06:05: POC Glucose 277 H 09/05/19 06:21: Specimen Source Right radial, O2 % 40, ABG pH 7.36, ABG pCO2 55.7 H, ABG pO2 68.4 L, ABG HCO3 31.0 H, ABG Total CO2 32.8 H, ABG O2 Saturation 93, ABG Base Excess 5.7 H, Cesar Test Acceptable, Vent Rate 12, Tidal Volume 400, PEEP 5 I & O for Last 24 hours: Intake & Output 09/02/19 09/03/19 09/04/19 09/05/19 11:59 11:59 11:59 11:59 Intake Total 4200 / 4200 2116 / 2116 Output Total 950 / 950 636 / 636 Balance 3250 / 3250 1480 / 1480 Weight 332 lb 3.786 oz Microbiology Reports for the Last 24 Hours: Microbiology 09/04/19 03:32 Urine,Catheterized Urine Culture - Preliminary NO GROWTH AFTER 24 HOURS 09/04/19 16:43 Sputum - Endotracheal Tube Aspirate Gram Stain - Final Narrative: Patient is intubated, sedated, minimal overbreathing of the vent but seems very comfortable on current ventilator settings. Distal tissue perfusion is excellent with good capillary refill. Her BMI of 60 limits her examination, but she has clear anterior lung rosales, regular heart rate and a soft abdomen. Neurologic examination not assessed. ENT exam is unremarkable except for being intubated. Assessment and Plan (1) Acute on chronic respiratory failure with hypoxemia Current visit: Yes Status: Acute Category: Medical Code(s): J96.21 - Acute and chronic respiratory failure with hypoxia (2) Hypercapnia Current visit: Yes Status: Acute Category: Medical Code(s): R06.89 - Other abnormalities of breathing (3) Mixed acid base balance disorder Current visit: Yes Status: Acute Category: Medical Code(s): E87.4 - Mixed disorder of acid-base balance (4) Acute respiratory distress syndrome (ARDS) Current visit: Yes Status: Acute Category: Medical Code(s): J80 - Acute respiratory distress syndrome - Assessment and plan all Dx Assessment and Plan for all problems:: Acute respiratory failure is stable currently intubated. Continue mechanical ventilation given her significant multiorgan/respiratory/cardiac disease. Awaiting transfer to tertiary care center where her cardiology service is located. Echocardiogram this morning, I will review labs and ABG to assess further ventilator management. Ventilator management continues. Please note 30 minutes critical care time and ventilator management.
--- NOTE | 2019-09-05 18:16 | Electrocardiograph Report ---
APPROVED REPORT Exam: Resting ECG HR:105 bpm ECG Measurements Heart Rate 105 AXES [place] 182 P 24 QRSd 70 QRS 31 QT 284 T63 QTc 375 <Conclusion> Sinus tachycardia Low voltage QRS Borderline ECG Electronically signed by : Josh Hughes, 09/05/2019 18:15:41
[2019-09-06 05:51] LABS: Basophils % 0.1 % (0.1-2.0); Eosinophils # 0.1 K/mm3 (0.0-0.4); Eosinophils % 0.6 % (0.1-12.0); Hematocrit 47.9 % (37.0-47.0); Lymphocytes # 0.7 K/mm3 (0.7-4.5); Lymphocytes % 8.6 % (10-50); Mean Corpuscular HGB Conc 29.2 g/dL (31.8-35.4); Mean Corpuscular Volume 101.3 fl (81-99); Monocytes # 0.5 K/mm3 (0.1-1.0); Monocytes % 5.8 % (1.7-9.3); Neutrophils # 7.2 K/mm3 (1.8-7.8); Neutrophils % 84.8 % (37.0-80.0); Platelet Count 164 K/mm3 (142-424); Red Blood Count 4.73 M/mm3 (4.20-5.40); White Blood Count 8.5 K/mm3 (4.8-10.8)
[2019-09-06 06:06] LABS: Albumin Level 2.3 gm/dL (3.4-5.0); Albumin/Globulin Ratio 0.7 (1.1-1.8); Anion Gap 8.5 mEq/L (5-15); Bilirubin,Total 0.2 mg/dL (0.2-1.0); Calcium 8.4 mg/dL (8.5-10.1); Globulin 3.5 gm/dl (1.3-3.2); Total Protein,Serum 5.8 gm/dL (6.4-8.2)
[2019-09-06 06:27] LABS: ABG Base Excess 10.5 mmol/L (-2.4-2.3); ABG HCO3 36.4 mmhg (22.0-26.0); ABG Oxygen Saturation 93 % (90-100); ABG PH 7.33 mmol/L (7.35-7.45); ABG PO2 72.3 mmhg (80-100); ABG TCO2 38.6 mmhg (23-27)
[2019-09-06 06:30] LABS: Allen's Test ACCEPTABLE; Oxygen 40% %; PEEP 5; Tidal Volume 400
[2019-09-06 06:31] LABS: ABG PCO2 70.6 mmhg (35.0-45.0)
--- NOTE | 2019-09-06 11:52 | Progress Note ---
Internal Medicine - PN: Subj *Date: 09/06/19 *Time: 11:52 Exam Vital signs and Labs for Last 24 Hours: Temp Pulse Resp BP Pulse Ox 98.4 F 76 24 174/103 H 94 L 09/06/19 10:53 09/06/19 10:53 09/06/19 10:53 09/06/19 10:53 09/06/19 10:53 Laboratory Results - last 24 hr 09/05/19 11:58: POC Glucose 282 H 09/06/19 05:33: WBC 8.5, RBC 4.73, Hgb 14.0, Hct 47.9 H, MCV 101.3 H, MCH 29.6, MCHC 29.2 L, RDW 15.0, Plt Count 164, MPV 8.0, Neut % (Auto) 84.8 H, Lymph % (Auto) 8.6 L, [place] % (Auto) 5.8, Eos % (Auto) 0.6, Baso % (Auto) 0.1, Neut # (Auto) 7.2, Lymph # (Auto) 0.7, [place] # (Auto) 0.5, Eos # (Auto) 0.1, Baso # (Auto) 0.0 09/06/19 05:33: Sodium 138, Potassium 4.5, Chloride 101, Carbon Dioxide 33 H, Anion Gap 8.5, BUN 21 H, Creatinine 0.72, Estimated Creat Clear 40, Estimated GFR 80, Est GFR ( Amer) 97, Glucose 339 H, Calcium 8.4 L, Total Bilirubin 0.2, AST 42 H D, ALT 26, Alkaline Phosphatase 54, Total Protein 5.8 L, Albumin 2.3 L, Globulin 3.5 H, Albumin/Globulin Ratio 0.7 L 09/06/19 06:00: Specimen Source R radial, O2 % 40%, ABG pH 7.33 L, ABG pCO2 70.6 H, ABG pO2 72.3 L, ABG HCO3 36.4 H, ABG Total CO2 38.6 H, ABG O2 Saturation 93, ABG Base Excess 10.5 H, Cesar Test Acceptable, Vent Rate 12, Tidal Volume 400, PEEP 5 I & O for Last 24 hours: Intake & Output 09/03/19 09/04/19 09/05/19 09/06/19 23:59 23:59 23:59 23:59 Intake Total 5276 / 5435 3874 / 4139 1265 / 1265 Output Total 1361 / 1389 939 / 986 1479 / 1479 Balance 3915 / 4046 2935 / 3153 -214 / -214 Weight 150.7 kg 155.4 kg 154.4 kg Microbiology Reports for the Last 24 Hours: Microbiology 09/04/19 03:32 Urine,Catheterized Urine Culture - Final Escherichia coli 09/04/19 16:43 Sputum - Endotracheal Tube Aspirate Gram Stain - Final 09/04/19 16:43 Sputum - Endotracheal Tube Aspirate Sputum Culture - Preliminary 09/04/19 02:50 Blood Blood Culture - Preliminary NO GROWTH AFTER 48 HOURS 09/04/19 02:50 Blood Blood Culture - Preliminary NO GROWTH AFTER 48 HOURS Assessment and Plan (1) Acute on chronic respiratory failure with hypoxemia Current visit: Yes Status: Acute Category: Medical Code(s): J96.21 - Acute and chronic respiratory failure with hypoxia (2) Hypercapnia Current visit: Yes Status: Acute Category: Medical Code(s): R06.89 - Other abnormalities of breathing (3) Mixed acid base balance disorder Current visit: Yes Status: Acute Category: Medical Code(s): E87.4 - Mixed disorder of acid-base balance (4) Acute respiratory distress syndrome (ARDS) Current visit: Yes Status: Acute Category: Medical Code(s): J80 - Acute respiratory distress syndrome
--- NOTE | 2019-09-06 14:56 | Cardiology Report ---
APPROVED REPORT EXAM: Comprehensive 2D, Doppler, and color-flow Echocardiogram Cna Ltc: Tamie Montano RT(R) Ht: 5 ft 2 in Wt: 332lbs BSA: 2.37 BP: 115/58 mmHg Indications: COPD, ex smoker, diabetes, SOB, pneumonia, resp failure, septic shock, pt on vent, home O2. Echo Enhancing Agent Indication: Endocardial border delineation Agent(s) / Amount(s) Used: Definity 2 cc M-Mode Dimensions RVDd 2.81 cm (0.9-2.6)LVDd 4.50 cm (3.5-5.7) LVDs 4.12 cm (3.5-5.7)IVSd 0.98 cm (0.6-1.1) PWd 1.08 cm (0.6-1.1)EF (Teich) 18.70% FS 8.40% EDV (Teich) 92.40 mL ESV (Teich) 75.10 mL LV Diastology E/A Ratio 1.29 Mitral Valve MV A Velocity 53.00 (40-130 cm/s) Left Ventricle Left atrium is mildly enlarged, left ventricle is normal size, there is mild concentric left ventricular hypertrophy, visually estimated ejection fraction 50%, with no obvious regional wall motion abnormality, Definity contrast was utilized to delineate the endocardial surfaces. Right Ventricle Right atrium and right ventricle is mildly enlarged with normal contractility. Aortic Valve Aortic valve is thickened and calcified leaflet continue to display good mobility. Mitral Valve Mitral valve is minimally thickened, there is no mitral stenosis. There is mild mitral regurgitation seen. Tricuspid Valve Tricuspid valve is grossly normal, there is mild tricuspid regurgitation. Tricuspid regurgitation jet velocity is inadequate for calculation of the right ventricular systolic pressure. Pulmonic Valve Pulmonic valve is poorly visualized. Great Vessels Aortic root is normal size. Pericardium No significant pericardial effusion noted. Conclusion 1. Normal left ventricular size, preserved left ventricular systolic function, visually estimated ejection fraction 50% with no regional wall motion abnormality, Definity contrast was tested delineate the endocardial surfaces. Diastolic parameters are inconclusive. 2. Mildly enlarged right ventricle with normal contractility. 3. Mild mitral and tricuspid regurgitation. 4. No significant pericardial effusion noted. Electronically signed by : Hardy Zamora, 09/06/2019 14:55:35
--- NOTE | 2019-09-06 20:59 | Discharge Summary ---
General - General Admission date:: 09/04/19 Discharge date: 09/06/19 HPI HPI: Ms. Lester is a 69-year-old female with morbid obesity and obstructive sleep apnea who presented due to worsening confusion and altered mental status overnight. Patient wears a CPAP and lives with her son. He states that she has been having episodes where she is been acting differently lately. Yesterday she was more confused and not acting herself and the family was concerned for something being wrong so they brought her to the ER. They deny any acute illness with cough, fever, nausea vomiting or diarrhea. On presentation she was found to have some mottling in her feet and to be in acute hypercarbic respiratory failure with altered mental status. BiPAP was attempted in the ER with poor response leading to intubation. Patient was intubated in the ER with significant improvement in her respiratory acidosis and improvement in ability to ventilate. Attempts were made to transfer to tertiary care given the complexity of the patient and these were unsuccessful at this time. She is awaiting transfer and placed on a waiting list for [facility] pending availability of an ICU bed. On my assessment she winces to pain but is sedated on propofol. Continuing to require ventilatory support. Family at bedside who gave good history about patient's medical concerns of late. 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 Is poorly compliant with her medical treatment. Takes Valium 1-2 times a day as needed. Has been having worsening health since the passing of her late and retiring from . They are concerned for her need for subspecialty care and the complexities of her medical care. Hospital Course Hospital Course: Ms. Velazquez was admitted to [facility] for moderate ARDS, acute on chronic hypercarbic respiratory failure with respiratory acidosis, hypoxemia, pneumonia. She was initiated on antibiotics and steroids for pneumonia. Met septic criteria on admission receiving fluid bolus and obtaining cultures. Intubated due to respiratory failure and transferred to the ICU. Management as follows: Neurologic: Obtunded on admission due to hypercarbia. Sedated thereafter. Propofol initiated approximately 5 AM on Thursday. 72-hour inez is Thursday morning 09/07/2019. When propofol was weaned down to perform spontaneous breathing trial, patient was able to follow commands, answer questions with head nods, cough, and stick her tongue out on command. No focal neurologic deficits appreciated during exam. Pulmonary: Failed BiPAP trial for her respiratory acidosis and hypercarbic failure in the ER. Was subsequently intubated and transition to CMV volume of 400, respiratory rate was weaned over the first 24 hours to 12, PEEP of 6. Her blood gas improved and is been stable for the past 36 hours with some permissive hypercapnia and low normal pH. Blood gas evening of transfer approximately 7.6, PCO2 63. Requiring 40% FiO2. On day of transfer, spontaneous breathing trial was attempted in the morning with patient tolerating fairly well. Unfortunately she had an R SBI between 120 and 150. Respiratory rate averaged 30. Due to difficulty with spontaneous breathing trial, decision was made not to extubate. Patient sedation was kept later with a goal Rass of 0-2. Mixture of low-dose propofol and as needed Ativan was used for sedation and agitation. Patient initiated on Invanz and azithromycin on admission for pneumonia given patient's allergy profile. Concern for focal infiltrate on initial chest x-ray with patchy opacification and obscuring of right heart border. Cardiovascular: -Patient had large cardiac shadow on chest x-ray concerning for cardiomegaly. Echocardiogram performed with following findings: 1. Normal left ventricular size, preserved left ventricular systolic function, visually estimated ejection fraction 50% with no regional wall motion abnormality, Definity contrast was tested delineate the endocardial surfaces. Diastolic parameters are inconclusive. 2. Mildly enlarged right ventricle with normal contractility. 3. Mild mitral and tricuspid regurgitation. 4. No significant pericardial effusion noted. -BNP and troponin normal on admission. Maintain normal sinus rhythm throughout admission. Initially had normal blood pressure on presentation and anti-hypertensives were held. They were not resumed prior to transfer. Blood pressure began to creep up with recording of approximately 150/90 the afternoon of transfer. GI: -N.p.o. initially with OG tube placed at intubation. Prophylaxis with PPI initiated. On third day of admission, nutrition consult was placed and trophic feeds were initiated. Patient has had a bowel movement on day 3 of admission, no significant diarrhea or concerns for GI infection. : -Otto catheter placed on admission, initial UA concerning for UTI. Urine culture positive for E. coli. Sensitive to Invanz. Treated with coverage for pneumonia. Nephrology: -Normal kidney function is stable electrolytes during admission. Patient does have some volume overload and diuresis was begun on third day of admission. Had brisk response to single dose of Lasix prior to attempted spontaneous breathing trial/extubation. Edema improving though still quite edematous globally Endocrine: -Patient is a type II diabetic on oral anti-hyperglycemics at home. Glucose maintained on sliding scale insulin. Initiated insulin glargine. Received 10 units on evening of transfer. Requiring approximately 40 units a day of insulin lispro. A1c 8.5. TSH within normal range 1.7. Patient is morbidly obese with BMI greater than 60. This complicates all aspects of her care. Of note, positive for benzos on admission. Has prescription for diazepam. Suspect this may have been a culprit in her acute process leading to admission. Therapeutic Lovenox for DVT prophylaxis Head of bed was elevated at 30 degrees Full code Objective Vital signs: Temp Pulse Resp BP Pulse Ox 98.4 F 64 20 138/72 92 L 09/06/19 19:01 09/06/19 19:01 09/06/19 19:01 09/06/19 19:01 09/06/19 19:01 Narrative: - Constitutional no acute distress, morbidly obese, intubated, on ventilator. - *Routine HEENT Exam Head: Present: cushingoid faces Eye: Present: PERRL ENT: Present: mucous membranes moist - *Routine Neck Exam Present: supple. Absent: lymphadenopathy Comments: Very large neck circumference - *Routine Respiratory Exam Present: distant breath sounds Comments: Poor inspiration, crackles in bases bilaterally, occasional rhonchi, no wheeze - *Routine Cardiovascular Exam Present: RRR Comments: Distant heart sounds, no appreciable murmur - *Routine Abdominal Exam Present: soft, normoactive bowel sounds. Absent: tenderness Comments: Obese - *Routine Extremities Exam Present: Normal improvement in edema edema (3+ to thigh). Absent: cyanosis, clubbing Comments: Erythema with venous stasis changes bilateral shins and feet, no petechiae or purpura - *Routine Skin Exam Present: warm. Absent: rash - *Routine Neurological Exam Sedated, opens eyes to verbal stimuli, pupils equal round reactive to light. Withdraws from pain. Spontaneous extremity movement Results Labs on day of discharge: Labs from last 24 hours 09/06/19 09/06/19 09/06/19 06:00 05:33 05:33 WBC 8.5 RBC 4.73 Hgb 14.0 Hct 47.9 H MCV 101.3 H MCH 29.6 MCHC 29.2 L RDW 15.0 Plt Count 164 MPV 8.0 Neut % (Auto) 84.8 H Lymph % (Auto) 8.6 L Hughes % (Auto) 5.8 Eos % (Auto) 0.6 Baso % (Auto) 0.1 Neut # (Auto) 7.2 Lymph # (Auto) 0.7 Hughes # (Auto) 0.5 Eos # (Auto) 0.1 Baso # (Auto) 0.0 Specimen Source R radial O2 % 40% ABG pH 7.33 L ABG pCO2 70.6 H ABG pO2 72.3 L ABG HCO3 36.4 H ABG Total CO2 38.6 H ABG O2 Saturation 93 ABG Base Excess 10.5 H Cesar Test Acceptable Vent Rate 12 Tidal Volume 400 PEEP 5 Sodium 138 Potassium 4.5 Chloride 101 Carbon Dioxide 33 H Anion Gap 8.5 BUN 21 H Creatinine 0.72 Estimated Creat Clear 40 Estimated GFR 80 Est GFR ( Amer) 97 Glucose 339 H Calcium 8.4 L Total Bilirubin 0.2 AST 42 H D ALT 26 Alkaline Phosphatase 54 Total Protein 5.8 L Albumin 2.3 L Globulin 3.5 H Albumin/Globulin Ratio 0.7 L Preliminary micro results at discharge 09/04/19 16:43 Sputum Culture - Preliminary Sputum - Endotracheal Tube Aspirate 09/04/19 02:50 Blood Culture - Preliminary Blood NO GROWTH AFTER 48 HOURS 09/04/19 02:50 Blood Culture - Preliminary Blood NO GROWTH AFTER 48 HOURS DS: Diagnosis - Discharge Diagnosis (1) Acute on chronic respiratory failure with hypoxemia Status: Acute (2) Hypercapnia Status: Acute (3) Mixed acid base balance disorder Status: Acute (4) Acute respiratory distress syndrome (ARDS) Status: Acute (5) E. coli UTI Status: Acute Discharge Plan - Patient Discharge Instructions Patient Instructions: Intubation and Mechanical Ventilation, Chronic Obstructive Pulmonary Disease, Respiratory Failure - Follow up Plan Disposition: Xfer Short-Term Hosp Home Medications: Home Medications Medication Instructions Recorded Confirmed Type Olmesartan Medoxomil [Benicar] 20 mg PO DAILY 06/11/19 09/04/19 History Omeprazole [Omeprazole 20mg 20 mg PO DAILY 06/11/19 09/04/19 History Capsule] diazePAM [diazePAM 5mg Tablet] 1 tab PO BIDP PRN 06/11/19 09/04/19 History dilTIAZem HCl [Dilt-Xr] 120 mg PO DAILY 06/11/19 09/04/19 History Aspirin [Aspirin 81mg EC Tab] 81 mg PO DAILY 09/04/19 09/04/19 History Budesonide/Formoterol Fumarate 2 puffs IH BID 09/04/19 09/04/19 History [Symbicort 160-4.5 Mcg Inhaler] Cetirizine HCl [Zyrtec] 10 mg PO DAILY 09/04/19 09/04/19 History Ergocalciferol (Vitamin D2) 1 cap PO WEEKLY 09/04/19 09/04/19 History [Drisdol 50,000 units (1.25mg) capsule] Furosemide [Furosemide 40MG tAB] 40 mg PO DAILY 09/04/19 09/04/19 History Potassium Chloride 10 meq PO DAILY 09/04/19 09/04/19 History Rivaroxaban [Xarelto 20mg Tablet*] 20 mg PO DAILY 09/04/19 09/04/19 History Rosuvastatin Calcium 10 mg PO HS 09/04/19 09/04/19 History glipiZIDE [Glucotrol Xl] 5 mg PO BID 09/04/19 09/04/19 History predniSONE [Deltasone 10mg tablet] 60 mg PO DAILY 09/04/19 09/04/19 History Prescriptions/Medication Reconciliation: New Acetaminophen [Acetaminophen 650mg suppository] 650 mg RC Q6HP PRN supp.rect PRN Reason: Fever > 100.4 Methylprednisolone Sod Succ/Pf [Solu-Medrol 125mg/2mL vial] 80 mg IV Q8H vial Enoxaparin Sodium [Lovenox 40mg/0.4mL syringe] 40 mg SQ BID syringe Insulin Glargine,Hum.rec.anlog [Insulin Glargine 100 Units/mL 3mL flexpen] 10 unit SQ HS insuln.pen Insulin Lispro [HumaLOG 100 units/mL 3mL vial (SSI)] 0 unit SQ ACHS ml Ipratropium/Albuterol Sulfate [Duoneb 3mL neb] 3 ml IH QIDRT ampul.neb LORazepam [Ativan 2mg/mL vial] 1 mg IV Q3HP PRN vial PRN Reason: Agitation Nystatin [Nystatin Topical Powder 30GM*] 0 gm TP TID bottle Pantoprazole Sodium [Protonix 40mg Vial] 40 mg IV HS vial Discontinued Omeprazole [Omeprazole 20mg Capsule] 20 mg PO DAILY dilTIAZem HCl [Dilt-Xr] 120 mg PO DAILY diazePAM [diazePAM 5mg Tablet] 1 tab PO BIDP PRN PRN Reason: Anxiety Olmesartan Medoxomil [Benicar] 20 mg PO DAILY Rosuvastatin Calcium 10 mg PO HS glipiZIDE [Glucotrol Xl] 5 mg PO BID Furosemide [Furosemide 40MG tAB] 40 mg PO DAILY Cetirizine HCl [Zyrtec] 10 mg PO DAILY Budesonide/Formoterol Fumarate [Symbicort 160-4.5 Mcg Inhaler] 2 puffs IH BID Rivaroxaban [Xarelto 20mg Tablet*] 20 mg PO DAILY predniSONE [Deltasone 10mg tablet] 60 mg PO DAILY Potassium Chloride 10 meq PO DAILY Ergocalciferol (Vitamin D2) [Drisdol 50,000 units (1.25mg) capsule] 1 cap PO WEEKLY Aspirin [Aspirin 81mg EC Tab] 81 mg PO DAILY - Problem Reconciliation Problems Reviewed?: Yes
[2019-09-07 17:41] LABS: ABG Base Excess 11.1 mmol/L (-2.4-2.3); ABG HCO3 36.3 mmhg (22.0-26.0); ABG Oxygen Saturation 93 % (90-100); ABG PH 7.38 mmol/L (7.35-7.45); ABG PO2 69.2 mmhg (80-100); ABG TCO2 38.2 mmhg (23-27)
[2019-09-07 17:43] LABS: Oxygen 40 %; PEEP 5; Tidal Volume 400
== END 2019-09-06 22:52 | disposition short-term general hospital (02) | DRG 208 ==
LOC: ER 02:38 → ICU 07:40
PROVIDERS: ADMIT Internal Medicine Adolescent Medicine; ATTEND Internal Medicine Adolescent Medicine
CPT/HCPCS: 36415; 71010; 71045; 80048; 80053; 80305; 81001; 82803; 82962; 83036; 83605; 83735; 83880; 84443; 84484; 85025; 87040; 87070; 87086; 87088; 87186; 87205; 93005; 93306; 94003; 94640; 96365; 96366; 96367; 96375; 99285; J0330; J0456; J1335; J2704; Q9957

== ENCOUNTER → 2019-11-10 16:18 | Outpatient (CLI) | payer MEDICARE, OTHER, SELFPAY ==
[2019-11-10 16:45] LABS: Basophils % 0.2 % (0.1-2.0); Eosinophils # 0.2 K/mm3 (0.0-0.4); Eosinophils % 0.9 % (0.1-12.0); Hematocrit 32.3 % (37.0-47.0); Hemoglobin 9.7 g/dL (12.2-16.2); Lymphocytes % 10.3 % (10-50); Mean Corpuscular HGB Conc 30.1 g/dL (31.8-35.4); Mean Corpuscular Hemoglobin 27.2 pg (27.0-31.2); Mean Corpuscular Volume 90.4 fl (81-99); Mean Platelet Volume 7.3 fl (7.4-10.4); Monocytes # 0.7 K/mm3 (0.1-1.0); Monocytes % 3.7 % (1.7-9.3); Neutrophils # 16.1 K/mm3 (1.8-7.8); Platelet Count 650 K/mm3 (142-424); Red Blood Count 3.57 M/mm3 (4.20-5.40); Red Cell Distribution Width 16.4 % (11.5-17.5)
[2019-11-10 16:47] LABS: MANUAL DIFFERENTIAL MANUAL DIFFERENTIAL (MANUAL DIFF)
[2019-11-10 17:26] LABS: Anisocytosis 1+; Lymphocytes % 17 % (10-50); Monocytes % 4 % (2-9); Neutrophils % 79 % (42-76); Platelet Estimate Moderate Increase; Total Cells Counted 100
[2019-11-10 17:27] LABS: Acanthocytes 1+; Hypochromasia 1+; Poikilocytosis 1+
[2019-11-10 17:30] LABS: Alanine Aminotransferase 16 U/L (12-78); Albumin Level 3.2 g/dl (3.5-5.0); Albumin/Globulin Ratio 0.8 (1.1-1.8); Alkaline Phosphatase 123 U/L (38-126); Anion Gap 12.4 mEq/L (5-15); Aspartate Amino Transferase 26 U/L (14-36); Bilirubin,Total 0.3 mg/dl (0.2-1.3); Blood Urea Nitrogen 25 mg/dl (7-17); Calcium 9.8 mg/dl (8.4-10.2); Carbon Dioxide 32 mmol/L (22.0-30.0); Chloride 95 mmol/L (98-107); Estimated Glomerular Filt Rate 49 ml/min (>60); GFR (African American) 59 ML/MIN (>60); Globulin 3.9 g/dL (1.3-3.2); Glucose 142 mg/dl (74-100); Potassium 5.4 mmoL/L (3.5-5.1); Sodium 134 mmol/L (136-145); Total Protein,Serum 7.1 g/dl (6.3-8.2)
[2019-11-10 18:07] LABS: Hemoglobin A1C 7.3 % (4.0-6.0)
== END ==
PROVIDERS: Visit Provider Internal Medicine Adolescent Medicine
DX: D62 Acute posthemorrhagic anemia (principal); E11.9 Type 2 diabetes mellitus without complications; Z79.4 Long term (current) use of insulin
CPT/HCPCS: 36415; 80053; 83036; 85007; 85025

== ENCOUNTER 2020-02-27 11:32 | Emergency (ER) | payer MEDICARE, OTHER, SELFPAY ==
[2020-02-27 11:33] VITALS: BP 135/74; PULSE 77; PULSE 81; RESP 16; RESP 20; TEMP 36.6; O2SAT 94; O2SAT 98; BMI 37.0
[2020-02-27 11:36] VITALS: BMI 37.0
--- NOTE | 2020-02-27 11:37 | CT_ITS ---
PROCEDURE: CT FACIAL BONES WO CON CLINICAL HISTORY: fall COMPARISON: No exams were available for comparison TECHNIQUE: Axial images obtained with sagittal and coronal reformats. All CT scans at the facility use one or more dose reduction, viz: automated exposure control, ma/kV adjustment per patient size (including targeted exams where dose is matched to indication, i.e. head), or iterative reconstruction technique. IMPRESSION: Findings: There are slightly depressed fractures of the bilateral nasal bones with overlying soft tissue edema. There is an air-fluid level in the left sphenoidal sinus. Orbital structures are intact. The deep and superficial structures of the visualized neck are unremarkable. Nasal bone fractures Dictated by: Toño Cervantes 02/27/2020 14:35 Electronically signed by Toño Cervantes in [facility] 02/27/2020 14:35
--- NOTE | 2020-02-27 11:37 | CT_ITS ---
PROCEDURE: CT HEAD/BRAIN WO CON CLINICAL INDICATION: fall COMPARISON: None TECHNIQUE: Axial images obtained. All CT scans at the facility use one or more dose reduction, viz: automated exposure control, ma/kV adjustment per patient size (including targeted exams where dose is matched to indication, i.e. head), or iterative reconstruction technique. FINDINGS: There are no mass lesions, hemorrhage, or stroke. Left frontal scalp edema is noted. This is mild subcortical and periventricular white matter lucency. The calvarium and sinuses are unremarkable except for some fluid within the left sphenoid sinus. Nasal bone fractures with overlying soft tissue edema is noted. IMPRESSION: Mild supratentorial micro ischemia, left frontal scalp edema, nasal bone fractures Note: If a subtle CVA is suspected then MR scan recommended. Dictated by: Toño Cervantes 02/27/2020 14:23 Electronically signed by Toño Cervantes in [facility] 02/27/2020 14:23
--- NOTE | 2020-02-27 11:37 | CT_ITS ---
PROCEDURE: CT CERVICAL SPINE WO CON CLINICAL INDICATION: fall 432 COMPARISON: No exams were available for comparison TECHNIQUE: Axial images obtained with sagittal and coronal reformats. All CT scans at the facility use one or more dose reduction, viz: automated exposure control, ma/kV adjustment per patient size (including targeted exams where dose is matched to indication, i.e. head), or iterative reconstruction technique. Axial spiral CT scanning performed of the cervical spine beginning at the base of the skull and continuing to the upper T-spine. 3-D multiplanar reconstruction with 3-D manipulation of volumetric data set in image rendering was completed by the radiologist and/or technologist with the supervision of the radiologist on independent workstation. FINDINGS: There is good alignment of bony structures. There is no fracture or dislocation. Multilevel facet arthropathy is demonstrated with moderate narrowing of the right C3-C4 and left C4-C5 neural foramina. Lung apices and the soft tissues are unremarkable. Nasal bone fractures are noted. IMPRESSION: Multilevel degenerative spondylosis and spinal stenosis, no fracture Dictated by: Toño Cervantes 02/27/2020 14:31 Electronically signed by Toño Cervantes in [facility] 02/27/2020 14:31
--- NOTE | 2020-02-27 11:41 | PC.NURSE ---
ice pack applied to face
--- NOTE | 2020-02-27 11:41 | PC.NURSE ---
got pt an ice pack for pts face
--- NOTE | 2020-02-27 12:30 | PC.NURSE ---
pt updated on plan of care
[2020-02-27 12:33] VITALS: BP 148/81; PULSE 77; RESP 18; O2SAT 95
--- NOTE | 2020-02-27 13:30 | PC.NURSE ---
pt and family updated on plan of care
--- NOTE | 2020-02-27 14:26 | HMH.EDFALL ---
ED Disposition Clinical Impression: Nasal fracture Disposition: Home, Self-Care Condition on Discharge: Good Additional Instructions: I spoke with Dr. Poole he agreed to see the patient in his office right now. Referrals: Provider,Referral, [Primary Care Provider] - - Critical Care Critical Care Time: No Attestation: On 02/27/20, the high probability of a clinically significant, sudden or life threatening deterioration of the following system(s) required my full and direct attention, intervention and personal management. The time I documented below is in addition to time spent performing reported procedures but includes the following listed in this critical care notation. Medical Decision Making - Medical Records Medical records reviewed: Yes: I reviewed the patient's medical records. - Nii Inquiry Pt receiving controlled substance: No Vital Signs: 02/27/20 11:33 02/27/20 12:33 Temperature 98 F Temperature Source Oral Pulse Rate [Left Radial] 77 77 Respiratory Rate 20 18 Blood Pressure [Right Arm] 135/74 148/81 H Blood Pressure Mean [Right Arm] 94 103 Blood Pressure Source [Right Arm] Automatic Cuff Automatic Cuff Blood Pressure Position [Right Arm] Sitting 02 Sat by Pulse Oximetry 94 L 95 Oxygen Delivery Method Nasal Cannula Nasal Cannula Oxygen Flow Rate (LPM) 2 - Lab Data Lab results reviewed: Yes: I reviewed the patient's lab results. Orders (Tests/Meds): ORDERS Category Date Time Status CT cervical spine wo con Stat Cat Scan 02/27/20 11:[address] facial bones wo con Stat Cat Scan 02/27/20 11:[address] head/brain wo con Stat Cat Scan 02/27/20 11:37 Taken - CT Data CT Scan: Other (Facial bones) Time Received: 14:00 Preliminary Findings: Abnormal (Comminuted nasal bone fracture) Fall HPI - General Chief Complaint: Fall Stated Complaint: fall Time Seen by Provider: 02/27/20 14:00 Mode of Arrival: Wheelchair Source of Information: Patient Limitations: No Limitations Description of Symptoms (Recalled from ER Triage Doc. by RN): to ed pt brought from outpt for eval due to fall in bathroom with facial injuries. bleeding noted from nose and mouth. pt denies any misaligment when she bites down. denies any LOC pt alert and orietned x 4 - History of Present Illness HPI Narrative: 70-year-old female presents the ED after a fall upstairs and lab when she was getting some outpatient testing done just prior to arrival here in the ED. When she fell in the bathroom she stood up and fell and face planted on the door. She presents here with facial pain specifically in her nose which is obviously displaced.Patient denies any recent cough or shortness of breath, patient denies any sore throat or headache, patient denies any loss of taste or smell, patient denies any malaise or fatigue, patient denies any abdominal pain nausea vomiting or diarrhea. - Related Data Home Medications Medication Instructions Recorded Confirmed Ferrous Sulfate [Iron] 325 mg PO DAILY 11/23/19 11/23/19 Furosemide [Furosemide 40MG tAB] 40 mg PO DAILY 11/23/19 11/23/19 Insulin Glargine,Hum.rec.anlog 10 unit SQ HS 11/23/19 11/23/19 [Lantus Solostar 100 Units/mL 3mL flexpen] Insulin Lispro [HumaLOG 100 5 unit SQ AC 11/23/19 11/23/19 units/mL 3mL vial (SSI)] Levothyroxine Sodium 0 mcg PO DAILY 11/23/19 11/23/19 [Levothyroxine 75mcg (0.075mg) Tab] Losartan Potassium 0 mg PO DAILY 11/23/19 11/23/19 dilTIAZem HCL [Diltiazem 24Hr ER] 180 mg PO DAILY 11/23/19 11/23/19 Allergies Allergy/AdvReac Type Severity Reaction Status Date / Time ciprofloxacin [From Cipro] Allergy Verified 06/11/19 16:05 codeine Allergy Verified 06/11/19 16:05 Gadolinium-Containing Allergy Verified 06/11/19 16:05 Contrast Medi Iodinated Contrast Media Allergy Verified 06/11/19 16:05 Penicillins Allergy Verified 06/11/19 16:05 Sulfa (Sulfonamide Allergy Verified 09/04/19 16:51 Antibiotics)
[2020-02-27 14:33] VITALS: BP 123/74; PULSE 78; RESP 16; TEMP 36.6; O2SAT 98
--- NOTE | 2020-02-27 14:33 | PC.NURSE ---
pt d/oumar to go to dr perdomo's office
[2020-02-27 14:43] LABS: Chloride 97 mmol/L (98-107)
[2020-02-27 14:44] LABS: Potassium 3.6 mmoL/L (3.5-5.1); Sodium 136 mmol/L (136-145)
[2020-02-27 14:46] LABS: Alanine Aminotransferase 9 U/L (12-78); Albumin Level 4.2 g/dl (3.5-5.0); Alkaline Phosphatase 76 U/L (38-126); Anion Gap 10.6 mEq/L (5-15); Aspartate Amino Transferase 19 U/L (14-36); Bilirubin,Total 0.5 mg/dl (0.2-1.3); Blood Urea Nitrogen 14 mg/dl (7-17); Carbon Dioxide 32 mmol/L (22.0-30.0); Creatinine Clearance Estimated 82 mL/min (50-200); Estimated Glomerular Filt Rate 82 ml/min (>60); GFR (African American) 100 ML/MIN (>60); Lipase 49 U/L (23-300)
[2020-02-27 14:47] LABS: Albumin/Globulin Ratio 1.1 (1.1-1.8); Calcium 10.4 mg/dl (8.4-10.2); Globulin 3.8 g/dL (1.3-3.2); Glucose 138 mg/dl (74-100)
== END 2020-02-27 14:35 | disposition home or self-care (01) ==
PROVIDERS: Internal Medicine Adolescent Medicine; Emergency Provider Family Medicine
DX: S02.2XXA Fracture of nasal bones, initial encounter for closed fracture (principal); W01.0XXA Fall on same level from slipping, tripping and stumbling without subsequent striking against object, initial encounter; Y92.012 Bathroom of single-family (private) house as the place of occurrence of the external cause; E11.9 Type 2 diabetes mellitus without complications; Z79.4 Long term (current) use of insulin; Z88.0 Allergy status to penicillin; Z88.2 Allergy status to sulfonamides; Z88.5 Allergy status to narcotic agent; Z99.81 Dependence on supplemental oxygen
CPT/HCPCS: 36415; 70450; 70486; 72125; 74176; 80053; 83690; 99282

== ENCOUNTER → 2020-02-27 15:29 | Outpatient (CLI) | payer MEDICARE, OTHER, SELFPAY ==
--- NOTE | 2020-02-27 15:33 | CT_ITS ---
PROCEDURE: CT ABDOMEN PELVIS WO CON CLINICAL INDICATION: LT FLANK PAIN COMPARISON: No exams were available for comparison TECHNIQUE: Axial images obtained with sagittal and coronal reformats. All CT scans at the facility use one or more dose reduction, viz: automated exposure control, ma/kV adjustment per patient size (including targeted exams where dose is matched to indication, i.e. head), or iterative reconstruction technique. FINDINGS: Small left pleural effusion, cardiomegaly and several scattered left lower lobe infiltrates are noted. Unenhanced liver, pancreas, adrenal glands, spleen, and right kidney is unremarkable. The patient is status post cholecystectomy. There are multiple sutures within the lateral cortex of the kidney with multiple fluid collections within the left perirenal fascia. The largest fluid collection measures 23 millimeters. There is thickening of the left posterior pararenal space. The left ureter is unremarkable. Aorta, small and large bowel, appendix, soft tissues and the bony structures are unremarkable. CT scan of the pelvis without contrast Patient is status post hysterectomy. Sigmoid diverticulosis is noted. Bladder, soft tissues and bony structures are unremarkable. IMPRESSION: Apparent postsurgical changes of the left renal cortex with probable left perirenal hematoma., sigmoid diverticulosis, status post hysterectomy and cholecystectomy. This report will be called to the patient's physician. Dictated by: Toño Cervantes 02/27/2020 16:55 Electronically signed by Toño Cervantes in [facility] 02/27/2020 16:55
== END ==
PROVIDERS: PCP Internal Medicine Adolescent Medicine; Visit Provider Internal Medicine Adolescent Medicine
DX: R10.9 Unspecified abdominal pain (principal)
CPT/HCPCS: 74176

== ENCOUNTER → 2020-11-07 13:15 | Outpatient (CLI) | payer MEDICARE, OTHER, SELFPAY | PROVIDERS: PCP Internal Medicine Adolescent Medicine; Visit Provider Internal Medicine Adolescent Medicine | DX: G47.33 Obstructive sleep apnea (adult) (pediatric) (principal); I10 Essential (primary) hypertension; R06.83 Snoring; E66.9 Obesity, unspecified | CPT/HCPCS: G0399 ==

== ENCOUNTER → 2021-01-14 08:24 | Outpatient (CLI) | payer MEDICARE, OTHER, SELFPAY ==
[2021-01-15 09:20] LABS: Hemoglobin A1C 5.7 % (4.0-6.0)
== END ==
PROVIDERS: Visit Provider Internal Medicine Adolescent Medicine
DX: E03.9 Hypothyroidism, unspecified (principal); E11.9 Type 2 diabetes mellitus without complications; Z79.4 Long term (current) use of insulin
CPT/HCPCS: 83036

== ENCOUNTER 2022-05-20 13:00 | Outpatient (RCR) | payer MEDICARE, OTHER, SELFPAY ==
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
== END 2022-07-04 09:44 | disposition home or self-care (01) ==
LOC: PT.CARL 13:00
PROVIDERS: PCP Internal Medicine Adolescent Medicine; Visit Provider Internal Medicine Adolescent Medicine
DX: G62.9 Polyneuropathy, unspecified (principal)
CPT/HCPCS: 97110; 97112; 97163

== ENCOUNTER → 2022-05-21 12:32 | Outpatient (CLI) | payer MEDICARE, OTHER, SELFPAY ==
[2022-05-21 13:22] LABS: Chloride 106 mmol/L (98-107); Potassium 4.4 mmoL/L (3.5-5.1); Sodium 142 mmol/L (136-145)
[2022-05-21 13:24] LABS: Blood Urea Nitrogen 18 mg/dl (7-17); Estimated Glomerular Filt Rate 61 ml/min (>60); GFR (African American) 74 ML/MIN (>60)
[2022-05-21 13:25] LABS: Alanine Aminotransferase 16 U/L (12-78); Albumin Level 3.9 g/dl (3.5-5.0); Albumin/Globulin Ratio 1.4 (1.1-1.8); Alkaline Phosphatase 90 U/L (38-126); Anion Gap 13.4 mEq/L (5-15); Aspartate Amino Transferase 22 U/L (14-36); Calcium 8.5 mg/dl (8.4-10.2); Carbon Dioxide 27 mmol/L (22.0-30.0); Globulin 2.8 g/dL (1.3-3.2); Glucose 143 mg/dl (74-100); Total Protein,Serum 6.7 g/dl (6.3-8.2)
[2022-05-21 13:27] LABS: Bilirubin,Total < 0.1 mg/dl (0.2-1.3)
[2022-05-21 13:41] LABS: Troponin I < 0.01 ng/ml (0.00-0.034)
== END ==
PROVIDERS: PCP Internal Medicine Adolescent Medicine; Visit Provider Internal Medicine Adolescent Medicine
DX: R07.2 Precordial pain (principal)
CPT/HCPCS: 36415; 80053; 84484

== ENCOUNTER → 2022-05-22 14:57 | Outpatient (CLI) | payer MEDICARE, OTHER, SELFPAY ==
--- NOTE | 2022-05-22 14:59 | CA_ITS ---
APPROVED REPORT EXAM: Comprehensive 2D, Doppler, and color-flow Echocardiogram Tire Debeader: Venecia Arthur, RCS, RVS Ht: 5 ft 1 in Wt: 260lbs BSA: 2.11 BP: 177/88 mmHg Indications: PANCHAL, SOA, Obesity, Ex-smoker, DM,Palpitations Echo Enhancing Agent Comments: Technically limited exam due to Patient large body habitus. 2D Dimensions IVSd 1.17 cm F: 0.6-1.0 LVEF (Visual) 75.90 % PWd 0.98 cm F: 0.6 - 1.0 LA Volume 43.40 mL LVDd 5.04 cm F: 3.9 - 5.3 LA Volume Index 20.56 mL/m2 (M/F) 16-34 LVDs 2.78 cm F: 2.2 - 3.5 Left Atrium 4.23 cm F: 2.7 - 3.8 LVOT 1.98 cm (M/F) 1.5-2.5 M-Mode Dimensions LA Diam 3.32 cm (1.9-4.0) Ao Diam 2.60 cm (2.0-3.7) EPSs 0.94 cm TAPSE 1.17 (<1.7) LV Diastology E Decel Time 220.00 (160-240 msec) E/A Ratio 0.85 MED E' 7.30 (< 7 cm/sec) MED A' 8.00 cm/s E'/MED E' Ratio 8.63 (>14) LAT E' 5.40 (<10 cm/sec) LAT A' 5.70 cm/s E/LAT E' Ratio 11.67 (>14) Aortic Valve LVOT Max 95.00 (70-110 cm/s) LVOT VTI 19.80 cm AoV Peak Mick. 136.00 (50-130 cm/s) AO Peak GR. 7.40 mmHg AO Mean GR. 3.70 (<5 mmHg) AO VTI 26.68 (18-25 cm) PERFECTO (VTI) 2.29 (2.5-4.5 cm2) Mitral Valve MV A Velocity 74.00 (40-130 cm/s) E/A Ratio 0.85 MV Decel. Time 220.00 (160-240 ms) MV PHT 67.00 ms Pulmonary Valve PV Peak Velocity 102.00 (50-150 cm/s) FL End VMAX 141.00 cm/s Left Ventricle Left atrium is mildly enlarged, left ventricle is normal size mild concentric left ventricular hypertrophy, estimated ejection fraction 55% with no regional wall motion abnormality, grade 1 diastolic dysfunction seen without tissue Doppler evidence of raise left atrial pressure. Right Ventricle Right atrium and right ventricle are mildly enlarged with normal contractility. Aortic Valve Aortic valve is minimally thickened and fibrosed without aortic stenosis or aortic insufficiency. Mitral Valve Mitral valve is grossly normal, there is trace mitral regurgitation. Tricuspid Valve Tricuspid valve grossly normal. There is trace tricuspid regurgitation, tricuspid regurgitation jet velocity is inadequate for calculation of the right ventricular systolic pressure. Pulmonic Valve Pulmonic valve is poorly visualized. Great Vessels Aortic root is normal size. Inferior vena cava is poorly visualized. Pericardium No significant pericardial effusion noted. Conclusion 1. Mild biatrial enlargement, normal left ventricular size mild concentric left ventricular hypertrophy, estimated ejection fraction 55% with no regional wall motion abnormality, grade 1 diastolic dysfunction seen without tissue Doppler evidence of raise left atrial pressure. 2. Mildly enlarged right ventricle with normal contractility. 3. Trace mitral and tricuspid regurgitation. 4. No significant pericardial effusion noted. 5. Inferior vena cava is poorly visualized. Electronically signed by : Hardy Zamora MD 05/23/2022 08:47:16
== END ==
PROVIDERS: PCP Internal Medicine Adolescent Medicine; Visit Provider Physician Assistant
DX: R06.09 Other forms of dyspnea (principal)
CPT/HCPCS: 93225; 93306

== ENCOUNTER → 2022-06-05 07:15 | Outpatient (CLI) | payer MEDICARE, OTHER, SELFPAY ==
--- NOTE | 2022-06-05 07:16 | NM_ITS ---
APPROVED REPORT Exam: Nuclear Stress Test Indication: chest pain..short of breath..fatigue Patient Location: Outpatient Stress Tech: Simin De Luna [place] Tech:JENNA Loyd RT(R)(N) Ht: 5 ft 1 in Wt: 251 lbs Bra Size: 36d HR: 77 bpm BP: 114/59 mmHg BSA: 2.08 m2 TID: 1.24 BMI: 47.4 History: chest pain..short of breath..fatigue Procedure: Patient received a 0.4 mg of intravenous Lexiscan, resting heart rate 77 bpm, resting blood pressure 114/59 mmHg, with Lexiscan maximum heart rate achived was 88 bpm which is Less than 85 % of the maximum predicted heart rate and blood pressure was 118/61 mmHg. With Lexiscan, patient denied any complaint of chest pain. patient was unable to lay on her belly for prone images Electrocardiogram Resting electrocardiogram shows sinus rhythm nonspecific ST-T changes, with Lexiscan there is less than 1.[address] segment depression noted from the baseline EKG. The EKG portion of the Lexiscan is nondiagnostic. Cardiac Stress and Resting SPECT Images: Cardiac Stress and Resting SPECT images were obtained using technetium 99m Myoview 31.0 mCi stress and 9.75 mCi at rest. Gated SPECT for analysis of segmental wall motion and calculation of the ejection fraction also done. Prone images were not obtained. Cardiac stress and rest SPECT images show mild reversible ischemia involving the inferior wall, computer derived ejection fraction is 60% with no regional wall motion abnormality, right ventricle is normal size and contractility. Conclusion: 1. The EKG portion of the Lexiscan is nondiagnostic. 2. Scintigraphic evidence of reversible ischemia involving the inferior wall, compared to ejection fraction 60% with no regional wall motion abnormality, right ventricle is normal size and contractility. 3. Abnormal Lexiscan Myoview study. Electronically signed by : Hardy Zamora MD 06/06/2022 11:28:06
--- NOTE | 2022-06-05 07:16 | CA_ITS ---
FINAL REPORT CLINICAL HISTORY: right carotid bruit, HTN, HLD, borderline DM, obesity, dizziness. FINDINGS: An ultrasound of the carotid arteries was performed. Duplex Doppler evaluation with spectral analysis was performed. The peak systolic velocity of the right common carotid artery is 110 cm/s. The peak systolic velocity of the right internal carotid artery is 97 cm/s and end diastolic velocity 13 cm/s. A small amount of plaque is present. The right external carotid artery is patent. The right vertebral artery is patent with antegrade flow. ICA/CCA ratio: 0.89 The peak systolic velocity of the left common carotid artery is 101 cm/s. The peak systolic velocity of the left internal carotid artery is 87 cm/s and end diastolic velocity 25 cm/s. A small amount of plaque is present. The left external carotid artery is patent. The left vertebral artery is patent with antegrade flow. ICA/CCA ratio: 1.04 Bilateral patent vertebral arteries with antegrade flow. IMPRESSION: No significant stenosis or occlusion. Reviewed, Interpreted and Dictated by Cristiano Buck MD Transcribed by Mario Pena Authenticated and . [facility]
--- NOTE | 2022-06-05 07:16 | CA_ITS ---
APPROVED REPORT Exam: Pharmacologic Technologist: Simin Ngo, Ht: 5 ft 1 in Wt: 256 lbs BSA: 2.10 m2 HR: 73 bpm BP: 114/59 mmHg 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 Medications: Omeprazole,,,,, Levothyroxine,,,,, Gabapentin,,,,, Vitamin C,,,,, Vitamin D3,,,,, Losartan,,,,, Atorvastatin,,,,, Carvedilol,,,,, Norvasc,,,,, Maxzide,,,,, Venlafaxine,,,,, Zinc,,,,, Stress Test Details Test: LEXISCAN Reason for pharmacologic stress test: physical limitation. HR Resting HR: 77 bpm Max Heart Rate (APMHR): 147.046073 bpm Max HR Achieved: 88 bpm Target HR (85% APMHR): 124.890083 bpm % of APMHR: 59.86 Recovery HR: 80 bpm BP Resting BP: 114/59 mmHg Max BP: 118/61 mmHg Recovery BP: 106.0/59.0 mmHg ECG Resting ECG: undetermined rhythm, probable NSR, right axis deviation Clinical Exercise duration: 04:00 min Highest Stage Achieved: Stress ECG Conclusion Symptoms: SOA, JUAREZ. No CP. Arrhythmias/Ectopy: Occ PVC. ST-T Changes: No significant changes. Conclusion: Unremarkable Lexiscan stress. Myoview images reported separately. Test Summary REST 03:59 . . 77 . 114/ 59 . . Stage 1 01:00 . . 84 . . . . Stage 2 01:00 . . 87 . . . . Stage 3 01:00 . . 85 . 117/ 55 . . Stage 4 01:00 . . 79 . 98/ 50 . Stop exercise at 04:00 RECOVERY 01:00 . . 82 . 100/ 54 . . RECOVERY 02:00 . . 81 . 100/ 54 . . RECOVERY 03:00 . . 83 . 118/ 61 . . RECOVERY 04:00 . . 80 . 106/ 59 . . RECOVERY 04:12 . . 83 . 106/ 59 . . Electronically signed by : Hardy Zamora MD 06/06/2022 11:24:56
== END ==
PROVIDERS: PCP Internal Medicine Adolescent Medicine; Visit Provider Nurse Practitioner
DX: R09.89 Other specified symptoms and signs involving the circulatory and respiratory systems (principal); R00.2 Palpitations; R06.09 Other forms of dyspnea; R07.89 Other chest pain; R60.9 Edema, unspecified; R73.03 Prediabetes; R94.31 Abnormal electrocardiogram [ECG] [EKG]
CPT/HCPCS: 78452; 93017; 93880; A9502; J2785

== ENCOUNTER 2022-06-25 08:28 | Day surgery (SDC) | payer MEDICARE, OTHER, SELFPAY ==
[2022-06-25] VITALS (13 sets, daily range): BP systolic 107–153; BP diastolic 57–81; PULSE 69–85; RESP 16–18; TEMP 36.8; O2SAT 92–100; BMI 48.5
--- NOTE | 2022-06-25 | IR_ITS ---
APPROVED REPORT Patient Location: Outpatient Regulatory Technician: JENNA Mancia RT (R) PROCEDURES Left heart catheterization Left ventriculogram Selective coronary angiogram FFR to the LAD Stent deployment to the proximal and mid LAD INDICATION Typical angina pectoris, Coronary artery disease, Abnormal Myoview Informed consent was obtained prior to the procedure. COMPLICATIONS None Estimated Blood Loss: Less than 10 mls TECHNIQUE One percent lidocaine used to anesthetize the right anterior aspect of the wrist. The right radial artery was accessed via the Seldinger technique. A 6 Indonesian sheath was placed in the right radial artery. 2.5 mg of verapamil, 800 mcg of nitroglycerin, 1mg Lidocaine and 5000 U Heparin were given through the arterial sheath. The papa catheter was also used to perform left heart catheterization, left ventriculogram and selective coronary angiogram. At the end the diagnostic angiogram therapeutic heparin was administered giving a therapeutic ACT. Wire was placed into the LAD with some difficulty. There appeared to be a very eccentric calcified plaque which could not be appreciated angiographically however a wire continued to hang along a tortuous bend in the midsegment. Multiple wires were used including wires placed down the circumflex artery in order to achieve better guide support. A guide liner was also used. Eventually the wire was passed through the mid LAD there was an attempt at performing an FFR procedure. The FFR catheter was advanced to the area along the tortuous bend however it could not pass the tortuosity or the calcified plaque. Adenosine was initially infused. The FFR index was 0.84 prior to the infusion however the nevus FFR catheter did pullback and a therapeutic procedure was never performed. After several attempts eventually a 2.5 x 20 mm compliant balloon was passed into the midportion and deployed at 15 lyubov. This allowed a 3 mm x 26 mm resolute Mc stent to be deployed at 16 lyubov reducing the stenosis to 0%. JEFFERY-3 flow was present before and after the procedure. The procedure the apparatus was removed the sheath was removed good hemostasis was achieved using TR banding patient was transferred to postop already stable ANGIOGRAPHIC RESULTS The left main artery Normal The left anterior descending artery Has a proximal 40% stenosis within the midportion 50% telescopic stenosis which acted more like a greater than 90% based on the significant difficulty passing the wire The circumflex artery Nondominant yet large with mid vessel 20 to 30% stenoses The right coronary artery Is a large dominant but less and has a long mid vessel 30 to 40% stenosis The SUAZO ventriculogram reveals Normal 65% The left ventricular end-diastolic pressure 20 mmHg IMPRESSION Severe proximal and mid vessel LAD disease based on clinical assessment of wire difficulty Successful stenting of the proximal and mid LAD severe disease reduced to 0% with 1 drug-eluting stent Persistent moderate stenosis throughout the dominant right coronary artery Normal ejection fraction Elevated LVEDP PLAN 1. Dual antiplatelet therapy 2. Cardiac rehabilitation 3. Maximize antianginal medication 4. If patient continues to have angina pectoris I would consider bringing her back to the Marketing Business Analyst proceeding with FFR to the right coronary artery 5. LDL less than 55 to be achieved with high intensity statin 6. Avoidance of tobacco products Electronically signed by : Rashi Walton MD 06/25/2022 12:03:51
[2022-06-25 08:58] LABS: Basophils # 0.1 K/mm3 (0-0.2); Basophils % 0.4 % (0.1-2.0); Eosinophils # 0.2 K/mm3 (0.0-0.4); Eosinophils % 0.8 % (0.1-12.0); Hematocrit 45.8 % (37.0-47.0); Hemoglobin 14.7 g/dL (12.2-16.2); Lymphocytes # 1.3 K/mm3 (0.7-4.5); Lymphocytes % 6.6 % (10-50); Mean Corpuscular HGB Conc 32.1 g/dL (31.8-35.4); Mean Corpuscular Hemoglobin 30.9 pg (27.0-31.2); Mean Corpuscular Volume 96.3 fl (81-99); Mean Platelet Volume 8.1 fl (7.4-10.4); Monocytes # 0.2 K/mm3 (0.1-1.0); Monocytes % 1.2 % (1.7-9.3); Neutrophils # 17.3 K/mm3 (1.8-7.8); Platelet Count 330 K/mm3 (142-424); Red Blood Count 4.76 M/mm3 (4.20-5.40); Red Cell Distribution Width 13.6 % (11.5-17.5)
[2022-06-25 09:03] LABS: MANUAL DIFFERENTIAL MANUAL DIFFERENTIAL (MANUAL DIFF)
[2022-06-25 09:12] LABS: Chloride 98 mmol/L (98-107); Potassium 4.2 mmoL/L (3.5-5.1); Sodium 136 mmol/L (136-145)
[2022-06-25 09:15] LABS: Anion Gap 17.2 mEq/L (5-15); Blood Urea Nitrogen 38 mg/dl (7-17); Carbon Dioxide 25 mmol/L (22.0-30.0); Creatinine Clearance Estimated 34 mL/min (50-200); Estimated Glomerular Filt Rate 49 ml/min (>60); GFR (African American) 59 ML/MIN (>60); Glucose 247 mg/dl (74-100)
[2022-06-25 09:34] LABS: Lymphocytes % 6 % (10-50); Monocytes % 1 % (2-9); Neutrophils % 93 % (42-76); Platelet Estimate Normal; RBC Morphology Normal; Total Cells Counted 100
--- NOTE | 2022-06-25 13:18 | SUR.PHASEII ---
pt sitting up eating lunch at this time.
[2022-06-25 15:04] LABS: CATHL Activated Clotting Time 265 SEC (74-125)
[2022-06-25 15:05] LABS: CATHL Activated Clotting Time > 400 SEC (74-125)
--- NOTE | 2022-06-25 15:05 | HMH.PHACL ---
[employer] Laboratory Manager Discharge Med [employer] Hr Developer: Mirtha Velazquez has received discharge medication counseling on the following medications: MD ADDING ASPIRIN 81 MG DAILY AND BRILINTA 90 MG BID. PATIENT IS CURRENTLY TAKING LIPITOR 40 MG HS, CARVEDILOL 25 MG BID, AND LOSARTAN 50 MG DAILY.
== END 2022-06-25 15:44 | disposition home or self-care (01) ==
PROVIDERS: Nurse Practitioner Family; PCP Internal Medicine Adolescent Medicine; Visit Provider Internal Medicine
DX: E66.01 Morbid (severe) obesity due to excess calories (principal); E78.2 Mixed hyperlipidemia; I10 Essential (primary) hypertension; R00.2 Palpitations; R06.09 Other forms of dyspnea; R07.89 Other chest pain; R73.03 Prediabetes; R94.30 Abnormal result of cardiovascular function study, unspecified; R94.31 Abnormal electrocardiogram [ECG] [EKG]; Z68.42 Body mass index [BMI] 45.0-49.9, adult; I25.118 Atherosclerotic heart disease of native coronary artery with other forms of angina pectoris; Z79.899 Other long term (current) drug therapy
CPT/HCPCS: 36415; 80048; 85007; 85025; 85347; 92928; 93458; 93571; 99152; 99153; C1725; C1769; C1876; C9600; J0153; J1644; Q9967

== ENCOUNTER 2022-08-13 10:07 | Outpatient (RCR) | payer MEDICARE, OTHER, SELFPAY | END 2022-09-22 03:00 | disposition home or self-care (01) | LOC: PT 10:07 | PROVIDERS: Visit Provider Internal Medicine | DX: I25.10 Atherosclerotic heart disease of native coronary artery without angina pectoris (principal); Z95.5 Presence of coronary angioplasty implant and graft | CPT/HCPCS: 93798 ==

== ENCOUNTER → 2022-10-06 12:56 | Outpatient (CLI) | payer MEDICARE, OTHER, SELFPAY ==
--- NOTE | 2022-10-06 13:31 | PC.NURSE ---
PFT Completed without incident. Albuterol 0.083% given via HHN, per protocol, Pt tolerated tx well.
--- NOTE | 2022-10-06 13:49 | CT_ITS ---
FINAL REPORT TECHNIQUE: Axial imaging of the chest was obtained without contrast. Reformatted images were also obtained and reviewed.This study was performed with techniques to keep radiation doses as low as reasonably achievable, (ALARA). Individualized dose reduction technique using automated exposure control or adjustment of mA and/or kV according to the patient's size were employed. CLINICAL HISTORY: DYSPNEA ON EXERTION FINDINGS: There is no axillary adenopathy. There is no hilar or mediastinal mass or adenopathy. Heart size is normal. There is no pericardial or pleural effusion. Limited images of the upper abdomen are unremarkable. There is mild pulmonary scarring. No suspicious infiltrate or nodule is identified on lung window images. IMPRESSION: No acute process. Reviewed, Interpreted and Dictated by Vimal Ayala III, MD Transcribed by Cecile Garcia Authenticated and [facility]
== END ==
PROVIDERS: PCP Internal Medicine Adolescent Medicine; Visit Provider Internal Medicine Adolescent Medicine
DX: R06.09 Other forms of dyspnea (principal); Z87.891 Personal history of nicotine dependence
CPT/HCPCS: 71250; 94060; 94726; 94729

== ENCOUNTER 2023-12-14 10:51 | Outpatient (CLI) | payer MEDICARE, OTHER, SELFPAY ==
--- NOTE | 2023-12-14 11:02 | XR_ITS ---
FINAL REPORT CLINICAL HISTORY: RT HIP PAIN FINDINGS: RIGHT HIP Two views of the right hip demonstrate no acute fracture or dislocation. There are moderate degenerative changes. The visualized bony structures are well aligned. No soft tissue abnormality is seen. IMPRESSION: Moderate degenerative changes with no acute bony abnormality. Reviewed, Interpreted and Dictated by Vimal Ayala III, MD Transcribed by Ila Ulrich Authenticated and . [facility]
--- NOTE | 2023-12-14 11:03 | XR_ITS ---
FINAL REPORT CLINICAL HISTORY: HYPERCAPNIC RESPIRATORY FAILURE, CHRONIC COMPARISON: 11/23/2019 FINDINGS: Two views of the chest were obtained. The heart size and pulmonary vascularity are within normal limits. The mediastinum is normal. There is mild scarring/fibrosis. There is no pneumothorax. There are presumed loose bodies in the bilateral shoulders. IMPRESSION: Mild scarring/fibrosis. Reviewed, Interpreted and Dictated by Vimal Ayala III, MD Transcribed by Ila Ulrich Authenticated and [facility]
== END 2023-12-14 23:59 ==
LOC: RAD 10:53
PROVIDERS: PCP Internal Medicine Adolescent Medicine; Visit Provider Internal Medicine Adolescent Medicine
DX: M25.551 Pain in right hip (principal); J96.12 Chronic respiratory failure with hypercapnia
CPT/HCPCS: 71046; 73502

== ENCOUNTER 2024-02-15 21:45 | Emergency (ER) | payer MEDICARE, OTHER, SELFPAY ==
--- NOTE | 2024-02-15 21:45 | ECG_ITS ---
APPROVED REPORT Exam: Resting ECG HR:66 bpm ECG Measurements Heart Rate 66 AXES QRSd 81 QRS 47 QT 356 T 52 QTc 369 Conclusion Sinus rhythm with first-degree AV block with blocked PAC, no ST elevation in anatomical contiguous leads. Electronically signed by : EVELIO TREVINO, 02/15/2024 22:28:12
[2024-02-15 21:46] VITALS: BP 139/70; PULSE 68; RESP 13; TEMP 36.9; O2SAT 97; BMI 44.1
[2024-02-15 21:50] VITALS: BP 139/70; PULSE 70; RESP 14; O2SAT 97
--- NOTE | 2024-02-15 21:57 | ED_ITS ---
Discharge Plan Disposition Patient Disposition: Home, Self-Care Prescriptions Prescriptions: No Action losartan 50 mg tablet 50 mg PO DAILY atorvastatin 40 mg tablet 40 mg PO HS levothyroxine 100 mcg tablet 100 mcg PO DAILY Patient Comments: TAKE 1 TABLET BY MOUTH EVERY DAY venlafaxine 100 mg tablet 100 mg PO BID ascorbate calcium (vitamin C) 500 mg tablet 500 mg PO DAILY gabapentin 300 mg capsule 300 mg PO HS glipizide 5 mg tablet 5 mg PO DAILY zinc Tablet,Chewable PO cholecalciferol (vitamin D3) 50 mcg (2,000 unit) capsule 50 mcg PO DAILY triamterene-hydrochlorothiazid [Maxzide-25mg] 37.5-25 mg tablet 1 tab PO DAILY Qty: 30 5RF prednisone 20 mg tablet 60 mg PO DIRECTED Qty: 6 0RF Rx Instructions: Take 60mg night before procedure then take 60 mg morning of procedure. diltiazem HCl 240 mg capsule,extended release 24 hr 240 mg PO BID Qty: 60 4RF clopidogrel [Plavix] 75 mg tablet 75 mg PO DAILY Qty: 30 5RF pantoprazole [Protonix] 40 mg tablet,delayed release (DR/EC) 40 mg PO DAILY Qty: 30 5RF aspirin 81 mg Capsule 81 mg PO DAILY Qty: 30 3RF Referrals Follow up/Referrals: Rashi Walton MD [Staff Physician] - See instructions Heladio Palm MD [Primary Care Provider] - See instructions Activity Restrictions/Add. Instructions Additional Instructions/Restrictions: At this time it is very safe to be discharged home. If new or worsening symptoms please do not hesitate to return the emergency department. Please call and schedule appoint with Dr. Walton for clinic evaluation and to recheck your magnesium level. Clinical Impressions Clinical Impression: Palpitations, Hypomagnesemia Discharge ED Provider: Lg Chaudhari General Adult HPI <Jeremy Ulrich MD - Last Filed: 02/15/24 22:49> General Chief complaint: Arrhythmia/Palpitations Stated complaint: Chest pain Time Seen by Provider: 02/15/24 21:47 Mode of Arrival: Wheelchair Source of Information: Patient Limitations: No Limitations Description of Symptoms (Recalled from ER Triage Doc. by RN): pt felt her heart go in and out of rythm tonight, has been having episodes like this over last week but tonight was worse has hx of blood thinners and stents History of Present Illness HPI narrative: Patient is a 74-year-old female past medical history of paroxysmal atrial fibrillation on dual antiplatelet therapy who presents emergency department for evaluation of irregular heartbeat. Patient has felt it over the last week. She does not have chest pain, she does not have shortness of breath just feels significant variability in her heart rate. No other acute complaints at this time. Related Data Home Medications Medication Instructions Recorded Confirmed ascorbate calcium (vitamin C) 500 500 mg PO DAILY 05/22/22 07/01/22 mg tablet atorvastatin 40 mg tablet 40 mg PO HS 05/22/22 07/01/22 cholecalciferol (vitamin D3) 50 50 mcg PO DAILY 05/22/22 07/01/22 mcg (2,000 unit) capsule gabapentin 300 mg capsule 300 mg PO HS 05/22/22 07/01/22 glipizide 5 mg tablet 5 mg PO DAILY 05/22/22 07/01/22 levothyroxine 100 mcg tablet 100 mcg PO DAILY 05/22/22 07/01/22 losartan 50 mg tablet 50 mg PO DAILY 05/22/22 07/01/22 venlafaxine 100 mg tablet 100 mg PO BID 05/22/22 07/01/22 zinc tab PO 05/22/22 07/01/22 Previous Rx's Medication Instructions Recorded triamterene 37.5 1 tab PO DAILY #30 tabs 05/22/22 mg-hydrochlorothiazide 25 mg tablet (Maxzide-25mg) prednisone 20 mg tablet 60 mg (3 x 20 mg) PO DIRECTED 06/11/22 #6 tabs aspirin 81 mg capsule 81 mg PO DAILY #30 caps 06/25/22 clopidogrel 75 mg tablet (Plavix) 75 mg PO DAILY #30 tabs 07/01/22 diltiazem HCl 240 mg capsule,24 240 mg PO BID #60 caps 07/01/22 hr,extended release pantoprazole 40 mg tablet,delayed 40 mg PO DAILY #30 tabs 07/01/22 release (Protonix) Allergies Allergy/AdvReac Type Severity Reaction Status Date / Time ciprofloxacin [From Cipro] Allergy Verified 07/01/22 10:42 codeine Allergy Verified 07/01/22 10:42 Gadolinium-Containing Allergy Verified 07/01/22 10:42 Contrast Medi Iodinated Contrast Media Allergy Verified 10/25/22 10:42 Penicillins Allergy Verified 07/01/22 10:42 Sulfa (Sulfonamide Allergy Verified 07/01/22 10:42 Antibiotics) sulfamethoxazole Allergy Verified 07/01/22 10:42 [From Bactrim] trimethoprim [From Bactrim] Allergy Verified 07/01/22 10:42 PFSH <Jeremy Ulrich MD - Last Filed: 02/15/24 22:49> [facility] Disclaimer: The information contained in this section may have been updated after the patient was seen, as this information can be updated by other users. 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 Diastolic dysfunction Hyperlipidemia Hypertension Social History Smoking Status: Never smoker alcohol intake: never substance use type: denies use current occupational status: other Travel in the last 8 weeks: None household members: other housing: other <Jeremy Ulrich MD - Last Filed: 02/15/24 22:49> ROS Obtained: Yes Systems reviewed as appropriate & no additional complaints except as documented Physical Exam <Jeremy Ulrich MD - Last Filed: 02/15/24 22:49> General General appearance: alert and in no apparent distress Head Head exam: atraumatic and normocephalic Eye Eye exam: Present PERRL ENT ENT exam: Present mucous membranes moist Neck Neck exam: Present normal inspection Chest Chest inspection: Present normal inspection and symmetric chest wall rise Respiratory Respiratory exam: Present normal lung sounds bilaterally; Absent respiratory distress Cardiovascular Cardiovascular exam: Present regular rate and irregular rhythm Abdominal Exam Abdominal exam: Present soft; Absent tenderness Extremities Exam Extremities exam: Present normal inspection Neurological Exam Neurological exam: Present alert Psychiatric Psychiatric exam: Present normal affect Skin Skin exam: Present warm and dry Medical Decision Making <Jeremy Ulrich MD - Last Filed: 02/15/24 22:49> Nii Inquiry Pt receiving controlled substance: No Vital Signs: 02/15/24 21:46 02/15/24 21:50 02/15/24 22:01 Temperature 98.5 F Temperature Source Oral Pulse Rate 70 66 Pulse Rate [Right Radial] 68 Respiratory Rate 13 14 18 Blood Pressure 139/70 131/56 L Blood Pressure [Right Arm] 139/70 Blood Pressure Mean [Right Arm] 93 02 Sat by Pulse Oximetry 97 97 95 Oxygen Delivery Method Room Air Room Air Room Air 02/15/24 22:31 Temperature Temperature Source Pulse Rate 60 Pulse Rate [Right Radial] Respiratory Rate 11 L Blood Pressure 127/66 Blood Pressure [Right Arm] Blood Pressure Mean [Right Arm] 02 Sat by Pulse Oximetry 98 Oxygen Delivery Method Room Air Lab Data Lab Results 02/15/24 21:56: WBC 8.5, RBC 4.40, Hgb 13.9, Hct 43.3, MCV 98.3, MCH 31.6 H, MCHC 32.2, RDW 13.8, Plt Count 259, MPV 8.1, Neut % (Auto) 59.7, Lymph % (Auto) 30.8, [place] % (Auto) 6.0, Eos % (Auto) 2.7, Baso % (Auto) 0.8, Neut # (Auto) 5.1, Lymph # (Auto) 2.6, [place] # (Auto) 0.5, Eos # (Auto) 0.2, Baso # (Auto) 0.1, Sodium 138, Potassium 3.6, Chloride 99, Carbon Dioxide 29, Anion Gap 13.6, BUN 25 H, Creatinine 1.50 H, Estimated Creat Clear 24, Estimated GFR 34 L, Est GFR ( Amer) 41 L, Glucose 138 H, Calcium 9.7, Magnesium 1.3 L, Total Bilirubin 0.5, AST 24, ALT 18, Alkaline Phosphatase 71, Troponin I < 0.01, Total Protein 7.4, Albumin 4.1, Globulin 3.3 H, Albumin/Globulin Ratio 1.2 02/15/24 21:56 02/15/24 21:56 Orders (Tests/Meds): ED MEDICATIONS Discontinued Medications Generic Name Dose Route Start Last Admin Trade Name Freq PRN Reason Stop Dose Admin Magnesium Sulfate 2 gm in 50 mls @ 50 mls/hr 02/15/24 22:47 02/15/24 22:54 Magnesium Sulfate 2gm/50ml Premix IV 02/15/24 23:46 50 mls/hr ONCE ONE Administration ORDERS Category Date Time Status CXR --portable [XR chest portable] Stat Exams 02/15/24 21:57 Completed CBC w/Auto Diff [Complete Blood Count Auto Diff] Stat Lab 02/15/24 21:56 Completed CMP [Comprehensive Metabolic Panel] Stat Lab 02/15/24 21:56 Completed MG [Magnesium] Stat Lab 02/15/24 21:56 Completed Trop I [Troponin I] Stat Lab 02/15/24 21:56 Completed Troponin I Q3H Lab 02/16/24 01:00 Ordered Troponin I Q3H Lab 02/16/24 04:00 Ordered ECG Data Tracing #1: Independently interpreted by me, rate is 66, rhythm is largely regular, sinus rhythm with first-degree block with blocked PAC. No ST elevation in anatomical contiguous leads, QTc 369. Tracing #2: Independently interpreted by me, rate 63, rhythm is irregular, sinus arrhythmia with first-degree AV block, no dropped beats. QTc 374, no ST elevation in anatomical contiguous leads Medical Decision Narrative: In summary patient is 74-year-old female past medical history described above who presents emergency department for evaluation of palpitations. Patient is hemodynamically stable nontoxic-appearing upon arrival, afebrile. Initial EKG was concerning with computer read for second-degree type II heart block however repeat EKG shows sinus arrhythmia with first-degree heart block. The case was discussed with Dr. Walton, first EKG had a dropped beat however it was just noncaptured PAC in the setting of first-degree heart block. This is good news considering that patient does not have a higher degree heart block. Workup will be conducted with hematologic labs, chest x-ray, troponin, satellite project site monitor. Initial workup reviewed by me, hematologic labs are nonactionable, slightly elevated creatinine, no significant electrolyte abnormality, mild hypomagnesemia which will be repleted. Initial troponin undetectably low. Magnesium administration and repeat cardiac monitoring assessment pending at time of transfer of care to the oncoming physician, Dr. Chaudhari. <Lg Chaudhari MD - Last Filed: 02/16/24 00:27> Vital Signs: 02/15/24 21:46 02/15/24 21:50 02/15/24 22:01 Temperature 98.5 F Temperature Source Oral Pulse Rate 70 66 Pulse Rate [Right Radial] 68 Respiratory Rate 13 14 18 Blood Pressure 139/70 131/56 L Blood Pressure [Right Arm] 139/70 Blood Pressure Mean [Right Arm] 93 02 Sat by Pulse Oximetry 97 97 95 Oxygen Delivery Method Room Air Room Air Room Air 02/15/24 22:31 Temperature Temperature Source Pulse Rate 60 Pulse Rate [Right Radial] Respiratory Rate 11 L Blood Pressure 127/66 Blood Pressure [Right Arm] Blood Pressure Mean [Right Arm] 02 Sat by Pulse Oximetry 98 Oxygen Delivery Method Room Air Lab Data Lab Results 02/15/24 21:56: WBC 8.5, RBC 4.40, Hgb 13.9, Hct 43.3, MCV 98.3, MCH 31.6 H, MCHC 32.2, RDW 13.8, Plt Count 259, MPV 8.1, Neut % (Auto) 59.7, Lymph % (Auto) 30.8, [place] % (Auto) 6.0, Eos % (Auto) 2.7, Baso % (Auto) 0.8, Neut # (Auto) 5.1, Lymph # (Auto) 2.6, [place] # (Auto) 0.5, Eos # (Auto) 0.2, Baso # (Auto) 0.1, Sodium 138, Potassium 3.6, Chloride 99, Carbon Dioxide 29, Anion Gap 13.6, BUN 25 H, Creatinine 1.50 H, Estimated Creat Clear 24, Estimated GFR 34 L, Est GFR ( Amer) 41 L, Glucose 138 H, Calcium 9.7, Magnesium 1.3 L, Total Bilirubin 0.5, AST 24, ALT 18, Alkaline Phosphatase 71, Troponin I < 0.01, Total Protein 7.4, Albumin 4.1, Globulin 3.3 H, Albumin/Globulin Ratio 1.2 Orders (Tests/Meds): ED MEDICATIONS Discontinued Medications Generic Name Dose Route Start Last Admin Trade Name Freq PRN Reason Stop Dose Admin Magnesium Sulfate 2 gm in 50 mls @ 50 mls/hr 02/15/24 22:47 02/15/24 22:54 Magnesium Sulfate 2gm/50ml Premix IV 02/15/24 23:46 50 mls/hr ONCE ONE Administration ORDERS Category Date Time Status CXR --portable [XR chest portable] Stat Exams 02/15/24 21:57 Completed CBC w/Auto Diff [Complete Blood Count Auto Diff] Stat Lab 02/15/24 21:56 Completed CMP [Comprehensive Metabolic Panel] Stat Lab 02/15/24 21:56 Completed MG [Magnesium] Stat Lab 02/15/24 21:56 Completed Trop I [Troponin I] Stat Lab 02/15/24 21:56 Completed Troponin I Q3H Lab 02/16/24 01:00 Ordered Troponin I Q3H Lab 02/16/24 04:00 Ordered Medical Decision Narrative: In summary patient is 74-year-old female past medical history described above who presents emergency department for evaluation of palpitations. Patient is hemodynamically stable nontoxic-appearing upon arrival, afebrile. Initial EKG was concerning with computer read for second-degree type II heart block however repeat EKG shows sinus arrhythmia with first-degree heart block. The case was discussed with Dr. Walton, first EKG had a dropped beat however it was just noncaptured PAC in the setting of first-degree heart block. This is good news considering that patient does not have a higher degree heart block. Workup will be conducted with hematologic labs, chest x-ray, troponin, satellite project site monitor. Initial workup reviewed by me, hematologic labs are nonactionable, slightly elevated creatinine, no significant electrolyte abnormality, mild hypomagnesemia which will be repleted. Initial troponin undetectably low. Magnesium administration and repeat cardiac monitoring assessment pending at time of transfer of care to the oncoming physician, Dr. Chaudhari. Watson: I assumed primary responsibility for this patient after signout from previous physician. Independent interpretation of hematologic workup demonstrates nonactionable CBC. Chemistry with what appears to be CRISTINE on CKD with BUN 25 and creatinine 1.5. Magnesium low at 1.3, this was repleted 2 g IV. Troponin negative. Chest x-ray without acute cardiopulmonary airspace disease on independent interpretation. On initial EKG, as well as second EKG, appears to be second-degree heart block. Third EKG with what appears to be sinus bradycardia. MD interval prolonged around 280 ms, QRS 84, QTc 382. Appears to be first-degree AV block on this EKG. Could also be sales donor recruitment representative of second- degree type II without evidence of dropped beat during this strip. On reevaluation, patient feeling better, denies any history of chest pain. Appears very well. Will call to schedule follow-up with Dr. Walton's office, I feel this is appropriate. Because patient at baseline without signs or symptoms of clinical decompensation, deemed appropriate for discharge. Results were relayed to patient who voiced understanding and were agreeable to outpatient management and follow up. I discussed my clinical impression with patient and answered all questions. At this time, the evidence for any other entities in the differential is insufficient to warrant any further testing or ED observation. This was explained as well. Advisory was given that persistent or worsening symptoms require further evaluation. I confirmed the understanding of this discussion. Critical Care <Jeremy Ulrich MD - Last Filed: 02/15/24 22:49> Critical Care Time Critical Care Time: No
--- NOTE | 2024-02-15 21:57 | XR_ITS ---
PROCEDURE INFORMATION: Exam: XR Chest Exam date and time: 02/15/2024 9:55 PM Age: 74 years old Clinical indication: Pain; Chest pressure; Additional info: Palpitations TECHNIQUE: Imaging protocol: Radiologic exam of the chest. Views: 1 view. COMPARISON: CR XR CHEST 2V 12/14/2023 11:06 AM FINDINGS: Lungs: Mild bibasilar atelectasis. No consolidation. Pleural spaces: Normal. No pleural effusion. No pneumothorax. Heart/Mediastinum: Normal. No cardiomegaly. Vasculature: Tortuous atherosclerotic thoracic aorta. Bones/joints: Severe degenerative change of the bilateral glenohumeral joints. Bilateral glenohumeral joint intra-articular osseous loose bodies are unchanged. IMPRESSION: Mild bibasilar atelectasis. No consolidation.
--- NOTE | 2024-02-15 21:58 | ECG_ITS ---
APPROVED REPORT Exam: Resting ECG HR:63 bpm ECG Measurements Heart Rate 63 AXES HI 216 P 32 QRSd 88 QRS 42 QT 367 T 40 QTc 374 Conclusion SINUS RHYTHM WITH MARKED SINUS ARRHYTHMIA WITH FIRST DEGREE AV BLOCK LOW QRS VOLTAGE IN PRECORDIAL LEADS [QRS DEFLECTION < 1.0 mV IN CHEST LEADS] NONSPECIFIC T-WAVE ABNORMALITY ABNORMAL ECG Electronically signed by : EVELIO TREVINO, 02/15/2024 22:32:01
--- NOTE | 2024-02-15 21:58 | PC.NURSE ---
placed patient on zoll per ER MD
[2024-02-15 22:01] VITALS: BP 131/56; PULSE 66; RESP 18; O2SAT 95
[2024-02-15 22:05] LABS: Basophils # 0.1 K/mm3 (0-0.2); Basophils % 0.8 % (0.1-2.0); Eosinophils # 0.2 K/mm3 (0.0-0.4); Eosinophils % 2.7 % (0.1-12.0); Hematocrit 43.3 % (37.0-47.0); Hemoglobin 13.9 g/dL (12.2-16.2); Lymphocytes # 2.6 K/mm3 (0.7-4.5); Lymphocytes % 30.8 % (10-50); Mean Corpuscular HGB Conc 32.2 g/dL (31.8-35.4); Mean Corpuscular Hemoglobin 31.6 pg (27.0-31.2); Mean Corpuscular Volume 98.3 fl (81-99); Mean Platelet Volume 8.1 fl (7.4-10.4); Monocytes # 0.5 K/mm3 (0.1-1.0); Neutrophils # 5.1 K/mm3 (1.8-7.8); Neutrophils % 59.7 % (37.0-80.0); Platelet Count 259 K/mm3 (142-424); Red Cell Distribution Width 13.8 % (11.5-17.5); White Blood Count 8.5 K/mm3 (4.8-10.8)
--- OUTSIDE RECORDS SUMMARY | 2024-02-15 22:09 | XMS_ITS | Patient Health Record ---
Author Name Unknown Organization [facility] Address [address] [facility] [address] [place] [address] Care Team Providers Care Technical Services Assistant Name Role Phone Heladio Palm Primary Care Provider [phone] Amalia Mccall Unavailable [phone] ALLERGIES Allergen (clinical drug ingredient) Drug/Non Drug Allergy documented on EMR Reaction Allergy Type Onset Date Status decongestants (uncoded) Unknown Allergy Active IV contrast (uncoded) Unknown Allergy Active sulfa drugs (uncoded) Unknown Allergy Active ciprofloxacin Cipro tingling lips an d tongue Drug Allergy Active codeine codeine Unknown Drug Allergy Active penicillin anaphylaxis Drug Allergy Acti ve RESULTS Component Value Reference Range Notes X ray : Chest Reviewed date:12/22/2023 09:20:25 AM Interpretation: Performing Lab: Notes/Report: X ray : Hip, Right Reviewed date:12/22/2023 09:20:25 AM Interpretation: Performing Lab: Notes/Report: LIPID PANEL, STANDARD (7600) Reviewed date:12/22/2023 09:20:25 AM Interpretation: Performing Lab:CB, [facility] [address] [facility], [place]aquín SolaresTuxxRD[address] Brady Brown Notes/Report: NON-FASTING; NON-FASTING; NON-FASTING; NON-FASTING FASTING:YES FASTING: YES CHOLESTEROL, TOTAL 173 <200 mg/dL HDL CHOLESTEROL 38 > OR = 50 mg/dL TRIGLYCERIDES 268 <150 mg/dL If a non-fasting specimen was collected, consider repeat triglyceride testing on a fasting specimen if clinically indicated. Petrona et al. J. of Clin. Lipidol. 2015;9:129-169. LDL-CHOLESTEROL 97 Reference range: <100 Desirable range <100 mg/dL for primary prevention; <70 mg/dL for patients with CHD or diabetic patients with > or = 2 CHD risk factors. LDL-C is now calculated using the Aryan-Newton calculation, which is a validated novel method providing better accuracy than the Friedewald equation in the estimation of LDL-C. Aryan SS et al. CHRISTINA. 2013;310(19): 3307-3387 (http://education.All About Baby./faq/OHZ091) CHOL/HDLC RATIO 4.6 <5.0 (calc) NON HDL CHOLESTEROL 135 <130 mg/dL (calc) For patients with diabetes plus 1 major ASCVD risk factor, treating to a non-HDL-C goal of <100 mg/dL (LDL-C of <70 mg/dL) is considered a therapeutic option. COMPREHENSIVE METABOLIC BRENDAN Quigley (56878) Reviewed date:12/22/2023 09:20:25 AM Interpretation: Performing Lab:CB, [facility] [address] [facility], [facility] HealthExrsAM[address] Brady Brown Notes/Report: NON-FASTING; NON-FASTING; NON-FASTING; NON-FASTING FASTING:YES FASTING: YES GLUCOSE 176 65-99 mg/dL Fasting reference interval For someone without known diabetes, a glucose value >125 mg/dL indicates that they may have diabetes and this should be confirmed with a follow-up test. UREA NITROGEN (BUN) 31 7-25 mg/dL CREATININE 1.40 0.60-1.00 mg/dL EGFR 39 > OR = 60 mL/min/1.73m2 BUN/CREATININE RATIO 22 6-22 (calc) SODIUM 139 135-146 mmol/L POTASSIUM 4.1 3.5-5.3 mmol/L CHLORIDE 98 98-110 mmol/L CARBON DIOXIDE 28 20-32 mmol/L CALCIUM 10.2 8.6-10.4 mg/dL PROTEIN, TOTAL 6.9 6.1-8.1 g/dL ALBUMIN 4.1 3.6-5.1 g/dL GLOBULIN 2.8 1.9-3.7 g/dL (calc) ALBUMIN/GLOBULIN RATIO 1.5 1.0-2.5 (calc) BILIRUBIN, TOTAL 0.5 0.2-1.2 mg/dL ALKALINE PHOSPHATASE 74 37-153 U/L AST 12 10-35 U/L ALT 11 6-29 U/L BASIC METABOLIC PANEL (07848 ) Reviewed date:01/27/2024 02:40:09 PM Interpretation: Performing Lab:[facility] [address], [facility]jwt[facility]Z[address] Brady Brown Notes/Report: NON-FASTING GLUCOSE 159 65-99 mg/dL Fasting reference interval For someone without known diabetes, a glucose value >125 mg/dL indicates that they may have diabetes and this should be confirmed with a follow-up test. UREA NITROGEN (BUN) 33 7-25 mg/dL CREATININE 1.49 0.60-1.00 mg/dL EGFR 37 > OR = 60 mL/min/1.73m2 BUN/CREATININE RATIO 22 6-22 (calc) SODIUM 138 135-146 mmol/L POTASSIUM 4.8 3.5-5.3 mmol/L CHLORIDE 103 98-110 mmol/L CARBON DIOXIDE 24 20-32 mmol/L CALCIUM 10.4 8.6-10.4 mg/dL CBC (INCLUDES DIFF/PLT) (639 9) Reviewed date:12/22/2023 09:20:25 AM Interpretation: Performing Lab:[facility] [id number] [employer] [facility], [facility] [id number] Brady Brown Notes/Report: NON-FASTING; NON-FASTING; NON-FASTING; NON-FASTING FASTING:YES FASTING: YES WHITE BLOOD CELL COUNT 8.0 3.8-10.8 Thousand/ uL RED BLOOD CELL COUNT 4.08 3.80-5.10 Million/uL HEMOGLOBIN 12.8 11.7-15.5 g/dL HEMATOCRIT 39.0 35.0-45.0 % MCV 95.6 80.0-100.0 fL MCH 31.4 27.0-33.0 pg MCHC 32.8 32.0-36.0 g/dL RDW 12.3 11.0-15.0 % PLATELET COUNT 235 140-400 Thousand/uL MPV 9.8 7.5-12.5 fL ABSOLUTE NEUTROPHILS 5728 [phone] cells/uL ABSOLUTE LYMPHOCYTES [phone] cells/uL ABSOLUTE MONOCYTES 544 200-950 cells/uL ABSOLUTE EOSINOPHILS 168 15-500 cells/uL ABSOLUTE BASOPHILS 40 0-200 cells/uL NEUTROPHILS 71.6 LYMPHOCYTES 19.0 MONOCYTES 6.8 EOSINOPHILS 2.1 BASOPHILS 0.5 HEMOGLOBIN A1c (496) Reviewed date:12/22/2023 09:20:25 AM Interpretation: Performing Lab:[facility], [place]ín JonesVottOE[address] Brady Brown Notes/Report: NON-FASTING; NON-FASTING; NON-FASTING; NON-FASTING FASTING:YES FASTING: YES HEMOGLOBIN A1c 7.8 <5.7 % of total Hgb For someone without known diabetes, a hemoglobin A1c value of 6.5% or greater indicates that they may have diabetes and this should be confirmed with a follow-up test. For someone with known diabetes, a value <7% indicates that their diabetes is well controlled and a value greater than or equal to 7% indicates suboptimal control. A1c targets should be individualized based on duration of diabetes, age, comorbid conditions, and other considerations. Currently, no consensus exists regarding use of hemoglobin A1c for diagnosis of diabetes for children. This test was performed on the Bela jose c503 platform. Effective 11/11/23, a change in test platforms from the Baker Second Baker to the Bela jose c503 may have shifted HbA1c results compared to historical results. Based on laboratory validation testing conducted at [facility], the Bela platform relative to the Baker platform had an average increase in HbA1c value of < or = 0.3%. This difference is within accepted variability established by the National Glycohemoglobin Standardization Program. Note that not all individuals will have had a shift in their results and direct comparisons between historical and current results for testing conducted on different platforms is not recommended. REASON FOR REFERRAL Reason [facility] for e froilan for occipital JUAREZ injections Diagnosis 1 Bilateral occipital neuralgia (M54.81) Referral Organization [facility] RUPA MANUEL Referring Provider First Name Heladio Referring Provider Last Name Arpita Referring Provider Speciality Internal M edicine General Notes Carmen Harvey 01:08:28 PM > faxed and they will call pt to schedule- pt informed Referral Priority Routine MEDICATIONS Medication SIG (Take, Route, Frequency, Duration) Notes Start Date End Date Status Kerendia 20 mg 1 tab(s) orally once a day for 90 days 01/30/2024 Active biotin 1000 mcg 1 tab(s) orally once a day Active hydrochlorothiazide-triamter mary 25 mg-37.5 mg 1 cap(s) orally once a day for 90 day(s) Active venlafaxine 100 mg 1 tab(s) orally 2 ti mes a day for 90 days Active Gemtesa 75 mg 1 tab(s) orally once a day Active Symbicort 160 mcg-4.5 mcg/inh 2 puff(s) inhaled 2 times a day for 90 day(s) 10/09/2022 Active acetaminophen 500 mg 2 tab(s) orally rachel ry 6 hours prn Active Vitamin D3 2000 intl units as directed o rally once a day for 30 day(s) Active losartan 50 mg 1 tab(s) orally once a day for 30 day(s) Active Vitamin C 500 mg 1 tab(s) orally once a day for 30 day(s) Active carvedilol 25 mg 1 tab(s) orally 2 ti mes a day for 30 day(s) Active Zinc 140 mg (as elemental zinc 50 mg) 1 tab(s) orally once a day for 30 day(s) Active pantoprazole 40 mg 1 tab(s) orally once a day for 90 days Active Farxiga 10 mg TAKE 1 TABLET BY GERARDO TH EVERY DAY FOR 90 DAYS for 90 Active atorvastatin 40 mg 1 tab(s) orally once a day for 90 Active Conserving Device as directed as directed 03/22/20 Active Pen Needle 6mm 31g - once a day for 30 day(s) 02/13/2020 Active levothyroxine 100 mcg (0.1 mg) 1 tab(s) orally once a day for 90 days Active magnesium oxide 400 mg 1 tab(s) orally o nce a day for 30 days Active Plavix 75 mg 1 tab(s) orally once a day for 30 day(s) Active IMMUNIZATIONS Vaccine Route Administration Date Status Comme nts SHINGRIX IM Intramuscular 01/26/2024 Administered Prevnar PCV-20 (Pneumococcal conjugate 20) IM Intramuscular 01/26/2024 Administered Fluzone High Dose IM Intramuscular 06/04/2020 Administered Given by [facility] Fluzone High Dose IM Intramuscular 07/03/2022 Administered SOCIAL HISTORY Tobacco Use: Social History Observation Description Date Details (start date - stop date) Former Smoker NA - NA Sex Assigned At : Social History Observation Description Sex Assigned At Unknown Smoking: Question Answer Notes Are you a: former smoker How long has it been since you last smoked? > 10 years PROBLEMS Problem Type ICD Code Onset Dates Problem Status W/U Status Risk SNOMED Code Notes Problem Hypothyroid (E03.9) Active confirmed Hy pothyroid (26518122) Problem Afib (I48.91) Active confirmed Atrial fibrillation (08886020) Problem Morbid obesity (E66.01) Active confirmed Morbid obesity (236878826) Problem Neuropathy (G62.9) Active confirmed 386 524928 Problem Essential hypertension (I10) Active confirmed Essential hypertension (80772187) Problem Type 2 diabetes mellitus (E11.9) Active confirmed Type 2 diab etes mellitus (86004379) Problem Atherosclerosis of [place] coronary artery of [place] heart without angina pectoris (I25.10) Active confirmed 097327579 Problem Obstructive sleep apnea (G47.33) Active confirmed Obstructive sleep apnea (45088323) Problem Moderate persistent asthma without complication (J45.40) Active confirmed 591014538 Problem Acute depression (F32.9) Active confirmed Acute depression (276547620) Problem Chronic kidney disease, unspecified CKD stage (N18.9) Active confirmed 402912948 Problem Hypercapnic respiratory failure, chronic (J96.12) Active confirmed 545263033 VITAL SIGNS Heart Rate 82 /min 01/26/2024 Temperature 98 degrees Fahrenheit 01/26/2024 Blood pressure diastolic 78 mm Hg 01/26/2024 Height 5 ft 3 in in 01/26/2024 Blood pressure systolic 124 mm Hg 01/26/2024 Weight 235 lbs 01/26/2024 BMI 41.62 kg/m2 01/26/2024 Encounters Encounter Location Date Provider Diagnosis [facility] [address] [address] 07/20/2023 Amalia Cal [facility] [address] [place] [address] 12/07/2023 Heladio Palm [facility] [address] [place] [address] 12/14/2023 Heladio Palm Chronic kidney disea se due to type 2 diabetes mellitus E11.22 ; Essential hypertension I10 ; Hypercapnic respiratory failure, chronic J96.12 ; Moderate persistent asthma without complication J45.40 and Right hip pain M25.551 [facility] [place] [address] [address] 01/26/2024 Heladio Palm Essential hypertensi on I10 ; Chronic kidney disease, unspecified CKD stage N18.9 ; Bilateral occipital neuralgia M54.81 ; Encounter for immunization Z23 and Healthcare maintenance Z00.00 [facility] [address] [facility] [address] [place] [address] 05/14/2023 Heladio Palm [facility] [address] [facility] [address] [place] [address] 11/18/2023 Heladio Palm Afib I48.91 ; Type 2 diabetes mellitus E11.9 ; Hypothyroid E03.9 and Atherosclerosis of [place] coronary artery of [place] heart without angina pectoris I25.10 [facility] [place] [address] [address] 01/27/2024 [facility] [address] [place] [address] 01/29/2024 Heladio Palm Chronic kidney disea se, unspecified CKD stage N18.9 ASSESSMENTS Encounter Date Diagnosis Assessment Notes Treatment Notes Treatment Clinical Notes 11/18/2023 Afib (ICD-10 - I48.91) 11/18/2023 Type 2 diabetes mellitus (ICD-10 - E11.9) 12/14/2023 Essential hypertensi on (ICD-10 - I10) Blood pressure under good control 12/14/2023 Chronic kidney disea se due to type 2 diabetes mellitus (ICD-10 - E11.22) Congratulated patient on intentional weight loss. Check labs. Will follow closely. Will review labs and have patient come back in for lab review and her Medicare wellness update. 01/26/2024 Essential hypertensi on (ICD-10 - I10) BP well controlled, no change to current medications 01/26/2024 Chronic kidney disease, unspecified CKD stage (ICD-10 - N18.9) Started farxiga 10 mg last visit, Cr 1.40 on BMP at that time. Will repeat BMP to monitor renal function and electrolytes. 01/29/2024 Chronic kidney disease, unspecified CKD stage (ICD-10 - N18.9) 01/26/2024 Bilateral occipital neuralgia (ICD-10 - M54.81) Patient with bilateral muscle tightness, occiptal headaches consistent with occipital neuralgia. Will refer to acute pain for trigger point injections to help with symptoms. 12/14/2023 Hypercapnic respiratory failure, chronic (ICD-10 - J96.12) Given history of lung disease we will redo chest x-ray 11/18/2023 Hypothyroid (ICD-10 - E03.9) 12/14/2023 Moderate persistent asthma without complication (ICD-10 - J45.40) 01/26/2024 Encounter for immunization (ICD-10 - Z23) 11/18/2023 Atherosclerosis of [place] coronary artery of [place] heart without angina pectoris (ICD-10 - I25.10) 12/14/2023 Right hip pain (ICD- 10 - M25.551) Check x-ray. Recommended scheduled Tylenol, 2 in the morning and 2 in mid afternoon. Discussed safety of Tylenol compared to NSAIDs. 01/26/2024 Healthcare maintenan ce (ICD-10 - Z00.00) Immunizations: Prevnar 20 due today, shingrix due today Screening: colonoscopy UTD Labs: BMP today Patient very functional at baseline, able to perform all ADLs and has had no recent falls. No depressive symptoms at this time. PLAN OF TREATMENT Pending Test Test Name Order Date Physical Therapy 05/01/2022 Mammogram : Bilateral 04/22/2021 C-CMP 10/15/2020 Urine Culture, Routine 11/18/2019 Pulmonary Function Test- Complete 2022 M-Complete Blood Count Man Dif 0 M-Urinalysis and Microscopic 02/27/2020 M-Comprehensive Metabolic Panel 04/22/20 M-Comprehensive Metabolic Panel 01/15/20 M-Hemoglobin A1C 04/22/2021 M-Lipid Panel 04/22/2021 M-Lipid Panel 01/14/2021 M-Thyroid Stimulating Hormone 01/14/2021 M-Thyroid Stimulating Hormone 04/22/2021 M-Vitamin B12 04/22/2021 M-Vitamin B12 01/14/2021 M-Urine Culture 02/27/2020 LIPID PANEL, STANDARD (7600) 11/18/2023 COMPREHENSIVE METABOLIC PANEL (41064) BASIC METABOLIC PANEL (95734) 01/29/2024 CBC (INCLUDES DIFF/PLT) (6399) HEMOGLOBIN A1c (496) 11/18/2023 TSH (899) 11/18/2023 Next Appt Details Provider Name:Heladio Palm, 04/19/2024 11:00:00 AM, [address] [address], [place], [address], Insurance Providers Payer Name Payer Address Payer Phone Subscriber Number Group Number Insured Name Patient Relationship to Insured Coverage Start Date Coverage End Date MEDICARE [place] [address] [id number] Mirtha Hernadez Self - patient is the insured [employer] [address] [address] [place] [address] [id number] Kiana mac Mirtha Self - patient is the insured MEDICAL (GENERAL) HISTORY 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 History ICD Code Afib Basal cell HTN HLD COPD Left renal artery rupture- ablation done [facility] Diabetes Colonoscopy 05/29 with two sessile polyps 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
--- OUTSIDE RECORDS SUMMARY | 2024-02-15 22:09 | XMS_ITS | Continuity of Care Document ---
Author Name Unknown Organization [facility] Address [address] [address] Phone Care Team Providers Care Parking Technician Name Role Phone Jonnathan Sanchez MD Unavailable Unavailable Allergies, Adverse Reactions, Alerts Substance Reaction Status Criticality codeine Vomiting Active No Information Sulfa (Sulfonamide Antibiotics) Active No Information CIPROFLOXACIN HCL Active No Informa tion ciprofloxacin Active No Information PENICILLIN Anaphylaxis(severe) Active No Infor mation Medications Medication Instructions Dosage Effective Dates (start - stop) Status Comments prednisone 5 mg tablet 10mg daily for 2 weeks, 7.5mg daily for 2 weeks, 5mg daily for 2 weeks, 2.5mg daily for 2 weeks, then stop - Active cyanocobalamin (vit B-12) 1,000 mcg/mL injection solution inject subcutaneous 1,000 mcg once weekly for 4 weeks, and then 1,000 mcg monthly x 5 months - Active Xarelto 20 mg tablet take 1 tablet by oral route every day with the evening meal 20 MG - Active Xopenex HFA 45 mcg/actuation aerosol inhaler inhale 2 puff by inhalation route every 6 hours 90 MCG - Active diazepam 5 mg tablet take 1 tablet by oral route 2 times every day 5 MG - Active Aspirin Low Dose 81 mg tablet,delayed release take 1 tablet by oral route every day 81 MG - Active azelastine 137 mcg (0.1 %) nasal spray aerosol spray 2 spray by intranasal route 2 times every day in each nostril - Active betamethasone dipropionate 0.05 % topical cream apply by topical route 2 times every day a thin layer to the affected area(s) Not Available - Active Symbicort 160 mcg-4.5 mcg/actuation HFA aerosol inhaler inhale 2 puff by inhalation route 2 times every day in the morning and evening 2.00 puff - Active cholecalciferol (vitamin D3) 5,000 unit capsule One capsule once daily - Active Flonase Allergy Relief 50 mcg/actuation nasal spray,suspension spray 1 - 2 spray by intranasal route every day in each nostril as needed 50-100 MCG - Active furosemide 40 mg tablet take 1 tablet by oral route every day 40 MG - Active glipizide 5 mg tablet take 1 tablet by oral route 2 times every day before meals 5 MG - Active levalbuterol HFA 45 mcg/actuation aerosol inhaler inhale 2 puff by inhalation route every 6 hours 90 MCG - Active omeprazole 20 mg capsule,delayed release take 1 capsule by oral route 2 times every day 30 minutes to 1 hour before a meal 20 MG - Active potassium chloride ER 10 mEq capsule,extended release take 1 capsule by oral route every day with food 10 MEQ - Active rosuvastatin 10 mg tablet take 1 tablet by oral route every day 10 MG - Active venlafaxine ER 75 mg capsule,extended release 24 hr take 1 capsule by oral route every day with food 75 MG - Active Tirosint 75 mcg capsule take 1 capsule by oral route every day 75 MCG - Active Procedures Procedure Date Office Visit Level IV 25 Hydroxy Includes Fractions If Perform New Office Visit Level V Chest X-ray 2 Views Advance Directives Directive Yes / No Effective Date File Name No Information Encounters Encounter Description Practice Location Reason(s) For Visit Diagnoses Date Provider Providers Copied on Encounter [facility] [address], [id number], tel:[phone] [facility] No Information 0 Daniel De Santiago . [address], Suite [facility], [place], [place], [id number] . tel:[phone] Office Visit Level IV [facility] [address], [id number], tel:[phone] [facility] HSP vasculitis (chief complaint)L ower leg pain swelling rash since May 2019 (chief complaint) Henoch-Schonl ein purpuraDiabet esMorbid obesitySleep apneaChronic diastolic (congestive) heart failureRaynau d PhenomenonCel lulitis of legEdemaBody mass index (BMI) 50-59.9 , adultLong term (current) use of systemic steroids 0 Daniel Jonnathan . [address], [place], [place], [id number] . tel:[phone] Specialist: Olya Navarrete, [address], [place], [address]. tel:[phone] t: Bethel Friend, [address], [place], [address]. tel:[phone] t: Luis Galvan, [address], [place], [address]. tel:[phone] Provider: Huber Cisse, [address], [place], [address]. tel:[phone] [facility] [address], [id number], [place] tel:[phone] [facility] No Information 0 Daniel Jonnathan . [address], [place], [place], [id number] . tel:[phone] [facility] [address] [place] [address], [id number], [place] tel:[phone] [facility] No Information 0 Daniel De Santiago . [address], [place], [place], [id number] . tel:[phone] [facility] [address] [place] [address], [id number], [place] tel:[phone] [facility] No Information 9 Daniel De Santiago . [address], [place], [place], [id number] . tel:[phone] Referring Provider: Huber Cisse, [address], [place], [address]. tel:[phone] New Office Visit Level V [facility] [address], [place], [place], [id number], tel:[phone] [facility] HSP vasculitis (chief complaint)L ower leg pain swelling rash since May 2019 (chief complaint) Body mass index (BMI) 50-59.9 , adultHenoch-S chonlein purpuraEdemaC hronic diastolic (congestive) heart failureCellul itis of legSleep apneaMorbid obesityDiabet esRaynaud Phenomenon 9 Daniel De Santiago . [address], [place], [place], [id number] . tel:[phone] Specialist: Olya Navarrete, [address], [place], [address]. tel:[phone] Provider: Huber Cisse, [address], [place], [address]. tel:[phone] Family History Family Member Type Diagnosis Age At Onset Mother Problem (finding) Arthritis Father Problem (finding) Cardiovascular disease Payers Payer name Insurance type Covered democrat ID Authoriza tion(s) Medicare 33477 MB [id number] [employer] [id number] Social History Type Description Quantity Date Captured Comments Alcohol Use Details Unknown Caffeine Use Details Unknown Tobacco Use Status No Information Smoking Status No Information Sex Female Chief Complaint And Reason For Visit No Information Reason For Referral Reason For Referral No Information Plan Of Treatment Date Type Action Status Goal Lifestyle education regardin g diet completed Future Order: Lab Order CBC With Differential/Platelet ([id number]), Ordered on: Ordered Future Order: Lab Order Comp. Me tabolic Panel (14) ([id number]), Ordered on: Ordered Future Order: Lab Order C-Reacti ve Protein, Quant ([id number]), Ordered on: Ordered Future Order: Lab Order Sediment ation Rate-Westergren ([id number]), Ordered on: Ordered Future Order: Lab Order UA, Comp lete w/ Micro Exam w/Rflx Culture, Comp ([id number]), Ordered on: Ordered Future Order: Lab Order Hemoglob in A1c ([id number]), Ordered on: Ordered Future Order: Lab Order Protein and Creatinine, Random Urine ([id number]), Ordered on: Ordered Future Order: Lab Order CBC With Differential/Platelet ([id number]), Ordered on: Ordered Future Order: Lab Order Hepatiti s Panel (4) ([id number]), Ordered on: Ordered Future Order: Lab Order Comp. Me tabolic Panel (14) ([id number]), Ordered on: Ordered Future Order: Lab Order C-Reacti ve Protein, Quant ([id number]), Ordered on: Ordered Future Order: Lab Order Sediment ation Rate-Westergren ([id number]), Ordered on: Ordered Future Order: Lab Order UA, Comp lete w/ Micro Exam w/Rflx Culture, Comp ([id number]), Ordered on: Ordered Future Order: Lab Order Antinucl ear Antibodies, SHIV, IFA ([id number]), Ordered on: Ordered Future Order: Lab Order Cryoglob ulin, Ql, Serum, Rflx ([id number]), Ordered on: Ordered Future Order: Lab Order Protein Electro.,S ([id number]), Ordered on: Ordered Future Order: Lab Order Vitamin B12 and Folate ([id number]), Ordered on: Ordered Future Order: Lab Order 25-Hyd saul Vitamin D (Theratest) (VITADEI), Ordered on: Ordered Future Order: Lab Order Hemoglob in A1c ([id number]), Ordered on: Ordered Future Order: Lab Order Prothrom bin Time (PT) ([id number]), Ordered on: Ordered History Of Present Illness Encounter Date Complaint History Of Prese nt Illness HSP vasculitis Lower leg pain swell ing rash since May 2019 HSP vasculitis Lower leg pain swell ing rash since May 2019 Functional Status Date Functional Assessmen t No Information Instructions Date Instruction Additional Infor mation Likely contributing to CHF, shortness of breath, sleep apnea, lower extremity edema Related to Morbid obesity CHF likely contribut ing to edema shortness of breath and orthopnea/PNDExacerbated by morbid obesity. Weight loss encouraged through Mediterranean dietRequest cardiology records for review Related to Chronic diastolic (congestive) heart failure History of. Inactive Related to Raynaud Phenomenon Request records Related to Sleep apnea Right leg. She has f inished antibioticReportedly ultrasound leg July 2019 was negative. May be more venous stasis dermatitis at this point Related to Cellulitis of leg Chronic edema bilate ral lower extremities related to morbid obesity, heart failure Compression stockings encouraged. 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 Outside records from [facility] reviewed. Labs today for monitoring.Overall the vasculitic lesions legs are much improved/resolved on prednisone which she has been able to taper to 10 mg. Recommend she taper prednisone by 2.5 mg every 2 weeks until hopefully we can stop her prednisone completely on 11/26/2019.Follow-up with me in 1 month Related to Henoch-Schonlein purpura Likely CHF contribut ing to edema shortness of breath and orthopnea/PNDExacerbated by morbid obesity. Weight loss encouraged through Mediterranean dietRequest records from Cardiology who she last saw in 2016.Strongly recommend she consult with soaking tank worker now due to my concern of worsening heart failure. She wishes to see change soaking tank worker to [facility]. This consult with [facility] Cardiology will be arranged for her. Encouraged her to start on Lasix which was prescribed by her PCP Related to Chronic diastolic (congestive) heart failure Likely contributing to CHF, shortness of breath, sleep apnea, lower extremity edema Related to Morbid obesity Request records Related to Sleep apnea Active disease with recurrence of what appears to be HSP vasculitis lesions bilateral feet which she was initially diagnosed with in 2004Request records from Rheumatology, Nephrology from her initial diagnosis HSP in 2004. Reportedly she had some kidney involvement at that time as well.Check labs today as below. Chest x-ray today Consult dermatology Dr. Navarrete to consider skin biopsy to confirm this is recurrence of suspected HSP vasculitis legs which she had previously in 2005Consult wound care for small wounds feetStart prednisone 60 mg daily with gradual taper over the next 2-3 monthsRisk benefits of steroids discussed today including worsening diabetes, osteoporosis, avascular necrosis, infection, cataracts, glaucoma, weight gainShe also needs to consult with Cardiology in regards to CHF and edema legs which are also a major complaint to me today. She has not seen cardiology since 2016 when she was previously followed at cardiology. Encourage compression stockings. Suspect she has heart failure leading to worsening chronic leg edema, shortness of breath, PND/orthopnea. Chest x-ray obtained today along with labs as belowReturn to clinic 1 week Related to Henoch-Schonlein purpura Chronic edema bilate ral lower extremities related to morbid obesity, heart failure Compression stockings encouraged. Weight loss through Mediterranean dietOn diuretic furosemide per PCPConsult cardiology. She has not seen cardiology since 2016 and now wishes to switch soaking tank worker to [facility] Related to Edema Right leg. On antibi otics currently per PCPReportedly ultrasound leg July 2019 was negative. Request records of ultrasound from PCP Related to Cellulitis of leg History of. Inactive Related to Raynaud Phenomenon Lifestyle education regarding di et Related to Body mass index (BMI) 50.0-59.9, adult Assessments Type Assessment Date No Information Patient Care Teams Name Effective Dates (start - stop) Status Members No Information
[2024-02-15 22:17] LABS: Alanine Aminotransferase 18 U/L (12-78); Albumin Level 4.1 g/dl (3.5-5.0); Albumin/Globulin Ratio 1.2 (1.1-1.8); Alkaline Phosphatase 71 U/L (38-126); Anion Gap 13.6 mEq/L (5-15); Aspartate Amino Transferase 24 U/L (14-36); Bilirubin,Total 0.5 mg/dl (0.2-1.3); Blood Urea Nitrogen 25 mg/dl (7-17); Calcium 9.7 mg/dl (8.4-10.2); Carbon Dioxide 29 mmol/L (22.0-30.0); Chloride 99 mmol/L (98-107); Creatinine Clearance Estimated 24 mL/min (50-200); Estimated Glomerular Filt Rate 34 ml/min (>60); GFR (African American) 41 ML/MIN (>60); Globulin 3.3 g/dL (1.3-3.2); Glucose 138 mg/dl (74-100); Magnesium 1.3 mg/dl (1.6-2.3); Potassium 3.6 mmoL/L (3.5-5.1); Sodium 138 mmol/L (136-145); Total Protein,Serum 7.4 g/dl (6.3-8.2)
[2024-02-15 22:31] VITALS: BP 127/66; PULSE 60; RESP 11; O2SAT 98
[2024-02-15 22:33] LABS: Troponin I < 0.01 ng/ml (0.00-0.034)
[2024-02-15] MEDS: MAGNESIUM SULFATE IN WATER 2 GM/50 ML PIGGYBACK IV (22:54)
--- NOTE | 2024-02-16 00:18 | ECG_ITS ---
APPROVED REPORT Exam: Resting ECG HR:54 bpm ECG Measurements Heart Rate 54 AXES QRSd 84 QRS 49 QT 395 T 74 QTc 382 Conclusion SUPRAVENTRICULAR BRADYCARDIA First-degree AV block Electronically signed by : JEN MICHAELS, 02/16/2024 05:29:47
[2024-02-16 00:46] VITALS: BP 134/67; PULSE 61; RESP 20; TEMP 36.8; O2SAT 94
[2024-02-16 00:47] VITALS: PULSE 68
== END 2024-02-16 00:48 | disposition home or self-care (01) ==
PROVIDERS: Emergency Medicine; Emergency Provider Emergency Medicine; PCP Internal Medicine Adolescent Medicine
DX: I44.0 Atrioventricular block, first degree (principal); R00.2 Palpitations; E83.42 Hypomagnesemia; I10 Essential (primary) hypertension; E78.5 Hyperlipidemia, unspecified; N17.8 Other acute kidney failure; R00.1 Bradycardia, unspecified
CPT/HCPCS: 71045; 80053; 83735; 84484; 85025; 93005; 96365; 99284; J3475

== ENCOUNTER 2024-03-11 12:13 | Outpatient (CLI) | payer MEDICARE, OTHER, SELFPAY ==
--- NOTE | 2024-03-11 12:14 | CA_ITS ---
APPROVED REPORT EXAM: Comprehensive 2D, Doppler, and color-flow Echocardiogram Drycleaner: ILIA Chilel, RVS Ht: 5 ft 1 in Wt: 238lbs BSA: 2.03 BP: 141/67 mmHg Indications: CAD, HTN,Diastolic dysfunction, Dyspnea, Sinus tachycardia,Palpitations 2D Dimensions Left Atrium 3.36 cm LA Volume 64.80 mL LA Volume Index 31.76 mL/m2 (M/F) 16-34 M-Mode Dimensions RVDd 1.93 cm (0.9-2.6) LA Diam 3.79 cm (1.9-4.0) LVDd 5.30 cm (3.5-5.7) LVDs 3.86 cm (3.5-5.7) IVSd 0.96 cm (0.6-1.1) PWd 0.88 cm (0.6-1.1) EF (Teich) 50.30% EPSs 0.52 cm FS 25.80% EDV (Teich) 129.50 mL TAPSE 2.06 (<1.7) ESV (Teich) 64.30 mL LV Diastology E Decel Time 300 (160-240 msec) E/A Ratio 0.76 MED A' 9.70 cm/s LAT A' 10.20 cm/s Aortic Valve PERFECTO Index 0.73 cm2/m2 AoV Peak Mick. 163.0 (50-130 cm/s) AO Peak GR. 10.70 mmHg AO Mean GR. 5.30 (<5 mmHg) AO VTI 33.9 (18-25 cm) PERFECTO (VTI) 1.51 (2.5-4.5 cm2) Mitral Valve MV A Velocity 60.0 (40-130 cm/s) E/A Ratio 0.76 Pulmonary Valve PV Peak Velocity 66.0 (50-150 cm/s) Tricuspid Valve TR P. Velocity 237.00 cm/s RAP Estimate 10.00 mmHg RVSP 32.50 mmHg Left Ventricle The left ventricle is normal size. The left ventricular systolic function is normal. The left ventricular ejection fraction is within the normal range. There is increased LV wall thickness. There is normal LV segmental wall motion. Transmitral Doppler flow pattern suggests impaired LV relaxation. LVEF is 55%. Right Ventricle Right ventricle is mildly dilated. The right ventricular systolic function is normal. Atria Left atrium is mildly dilated. The right atrium size is normal. There is no Doppler evidence of interatrial shunt. Aortic Valve The aortic valve is mildly thickened. There is no aortic valvular stenosis. Trace aortic regurgitation. Mitral Valve The mitral valve is normal in structure. No evidence of mitral valve stenosis. Mild mitral regurgitation. Tricuspid Valve The tricuspid valve leaflets are thin and pliable. Mild tricuspid regurgitation. RVSP is 20-25 mmHg. Pulmonic Valve The pulmonary valve is normal in structure. Trace pulmonic regurgitation. Great Vessels The aortic root is normal in size. The ascending aorta is normal in size. IVC is normal in size and collapses >50% with inspiration. Pericardium There is no pericardial effusion. Other Information Study Quality: Technically Difficult Conclusion Technically difficult study due to poor acoustic windows. Normal biventricular systolic function. Mild RV dilation. Mild LA dilation. Mild MR, mild TR. Electronically signed by : Adeola Marie MD 03/15/2024 23:11:00
--- OUTSIDE RECORDS SUMMARY | 2024-03-11 12:15 | XMS_ITS | Patient Health Record ---
Author Name Unknown Organization [facility] Address [address] [facility] [address] [place] [address] Care Team Providers Care College Instructor Name Role Phone Heladio Palm Primary Care Provider [phone] Amalia Mccall Unavailable [phone] ALLERGIES Allergen (clinical drug ingredient) Drug/Non Drug [...] 09:20:25 AM Interpretation: Performing Lab:CB, [facility]ín Qlyv8433 [facility], Joaquín SolaresPiwdDB[address] Brady Brown Notes/Report: NON-FASTING; NON-FASTING; NON-FASTING; NON-FASTING [...] LDL-C. Aryan SS et al. CHRISTINA. 2013;310(19): 2695-7964 (http://[email or web address]/faq/[email or web address]) CHOL/HDLC RATIO 4.6 <5.0 (calc) NON HDL CHOLESTEROL 135 <130 mg/dL (calc) For patients with diabetes plus 1 major ASCVD risk factor, treating to a non-HDL-C goal of <100 mg/dL (LDL-C of <70 mg/dL) is considered a therapeutic option. COMPREHENSIVE METABOLIC BRENDAN Quigley (54557) Reviewed date:12/22/2023 09:20:25 AM Interpretation: Performing Lab:CB, [facility] Prez1281 [facility], [facility] HospitalNblaKX[address] Brady Brown Notes/Report: NON-FASTING; NON-FASTING; NON-FASTING; NON-FASTING [...] ALT 11 6-29 U/L BASIC METABOLIC PANEL (94881 ) Reviewed date:01/27/2024 02:40:09 PM Interpretation: Performing Lab:[facility]1355 [employer]te Pax8, [facility] HospitalRocfMQ[address] Brady Brown Notes/Report: NON-FASTING GLUCOSE 159 65-99 [...] Reviewed date:12/22/2023 09:20:25 AM Interpretation: Performing Lab:LV [facility] Info Azqj8113 [facility], [facility] HospitalBdddIA[address] Brady Brown Notes/Report: NON-FASTING; NON-FASTING; NON-FASTING; NON-FASTING FASTING:YES FASTING: YES WHITE BLOOD CELL COUNT 8.0 3.8-10.8 Thousand/ uL RED BLOOD CELL COUNT 4.08 3.80-5.10 Million/uL HEMOGLOBIN 12.8 11.7-15.5 g/dL HEMATOCRIT 39.0 35.0-45.0 % MCV 95.6 80.0-100.0 fL MCH 31.4 27.0-33.0 pg MCHC 32.8 32.0-36.0 g/dL RDW 12.3 11.0-15.0 % PLATELET COUNT 235 140-400 Thousand/uL MPV 9.8 7.5-12.5 fL ABSOLUTE NEUTROPHILS 5728 7477-1057 cells/uL ABSOLUTE LYMPHOCYTES 1318 161-8824 cells/uL ABSOLUTE MONOCYTES 544 200-950 cells/uL ABSOLUTE EOSINOPHILS 168 15-500 cells/uL ABSOLUTE BASOPHILS 40 0-200 cells/uL NEUTROPHILS 71.6 LYMPHOCYTES 19.0 MONOCYTES 6.8 EOSINOPHILS 2.1 BASOPHILS 0.5 HEMOGLOBIN A1c (496) Reviewed date:12/22/2023 09:20:25 AM Interpretation: Performing Lab:LV [facility]quín [address], Joaquín JonesCgjsEA[address] Brady Brown Notes/Report: NON-FASTING; NON-FASTING; NON-FASTING; NON-FASTING [...] change in test platforms from the [employer] Glazer to the Bela jose c503 may have shifted HbA1c results compared to historical results. Based on laboratory validation testing conducted at [facility], the Bela platform relative to the Baker [...] 1 Bilateral occipital neuralgia (M54.81) Referral Organization [facility] RUPA MANUEL Referring Provider First [...] mes a day for 90 days Active losartan 50 mg 1 tab(s) orally once a day for 30 day(s) Active pantoprazole 40 mg 1 tab(s) orally once a day for 90 days Active Gemtesa [...] once a day for 30 day(s) Active Farxiga 10 mg TAKE 1 TABLET [...] Vaccine Route Administration Date Status Comme nts Fluzone High Dose IM Intramuscular 06/04/2020 Administered Given by [facility] Fluzone High Dose IM Intramuscular 07/03/2022 Administered Prevnar PCV-20 (Pneumococcal conjugate 20) IM Intramuscular 01/26/2024 Administered SHINGRIX IM Intramuscular 01/26/2024 Administered SOCIAL HISTORY Tobacco Use: Social History [...] Problem Hypothyroid (E03.9) Active confirmed Hy pothyroid (30953576) Problem Afib (I48.91) Active confirmed Atrial fibrillation (36820783) Problem Morbid obesity (E66.01) Active confirmed Morbid obesity (095465182) Problem Neuropathy (G62.9) Active confirmed 386 691226 Problem Essential hypertension (I10) Active confirmed Essential hypertension (04979173) Problem Type 2 diabetes mellitus (E11.9) Active confirmed Type 2 diab etes mellitus (58409443) Problem Atherosclerosis of [place] coronary artery of [place] heart without angina pectoris (I25.10) Active confirmed 744366738 Problem Obstructive sleep apnea (G47.33) Active confirmed Obstructive sleep apnea (24746059) Problem Moderate persistent asthma without complication (J45.40) Active confirmed 037512774 Problem Acute depression (F32.9) Active confirmed Acute depression (052267253) Problem Chronic kidney disease, unspecified CKD stage (N18.9) Active confirmed 275559554 Problem Hypercapnic respiratory failure, chronic (J96.12) Active confirmed 633115305 VITAL SIGNS Heart Rate 82 /min 01/26/2024 Temperature 98 degrees Fahrenheit 01/26/2024 Blood pressure diastolic 78 mm Hg 01/26/2024 Height 5 ft 3 in in 01/26/2024 Blood pressure systolic 124 mm Hg 01/26/2024 Weight 235 lbs 01/26/2024 BMI 41.62 kg/m2 01/26/2024 Encounters Encounter Location Date Provider Diagnosis [facility] [address] [address] 07/20/2023 Amalia Cal [facility] [address] [place] [address] 12/07/2023 Heladio Palm [facility] [address] [place] [address] 12/14/2023 Heladio Palm Chronic kidney disea se due to type 2 diabetes mellitus E11.22 ; Essential hypertension I10 ; Hypercapnic respiratory failure, chronic J96.12 ; Moderate persistent asthma without complication J45.40 and Right hip pain M25.551 [facility] [address] [address] 01/26/2024 Heladio Palm Essential hypertensi on I10 ; Chronic kidney disease, unspecified CKD stage N18.9 ; Bilateral occipital neuralgia M54.81 ; Encounter for immunization Z23 and Healthcare maintenance Z00.00 [facility] [address] [facility] [address] [place] [address] 05/14/2023 Heladio Palm [facility] [address] [facility] [address] [place] [address] 11/18/2023 Heladio Palm Afib I48.91 ; Type 2 diabetes mellitus E11.9 ; Hypothyroid E03.9 and Atherosclerosis of [place] coronary artery of [place] heart without angina pectoris I25.[address] [facility] [place] [address] [address] 01/27/2024 [facility] [address] [place] [address] 01/29/2024 Heladio Palm Chronic kidney disea se, unspecified CKD stage N18.9 ASSESSMENTS Encounter Date Diagnosis Assessment Notes Treatment Notes Treatment Clinical Notes 11/18/2023 Afib (ICD-10 - I48.91) 11/18/2023 Type 2 diabetes mellitus (ICD-10 - E11.9) 01/26/2024 Essential hypertensi on (ICD-10 - I10) BP well controlled, no change to current medications 01/26/2024 Chronic kidney disease, unspecified CKD stage (ICD-10 - N18.9) Started farxiga 10 mg last visit, Cr 1.40 on BMP at that time. Will repeat BMP to monitor renal function and electrolytes. 01/29/2024 Chronic kidney disease, unspecified CKD stage (ICD-10 - N18.9) 12/14/2023 Essential hypertensi on (ICD-10 - I10) Blood pressure under good control 12/14/2023 Chronic kidney disea se due to type 2 diabetes mellitus (ICD-10 - E11.22) Congratulated patient on intentional weight loss. Check labs. Will follow closely. Will review labs and have patient come back in for lab review and her Medicare wellness update. 01/26/2024 Bilateral occipital neuralgia (ICD-10 - M54.81) Patient with bilateral muscle tightness, occiptal headaches consistent with occipital neuralgia. Will refer to acute pain for trigger point injections to help with symptoms. 12/14/2023 Hypercapnic respiratory failure, chronic (ICD-10 - J96.12) Given history of lung disease we will redo chest x-ray 11/18/2023 Hypothyroid (ICD-10 - E03.9) 11/18/2023 Atherosclerosis of [place] coronary artery of [place] heart without angina pectoris (ICD-10 - I25.10) 12/14/2023 Moderate persistent asthma without complication (ICD-10 - J45.40) 01/26/2024 Encounter for immunization (ICD-10 - Z23) 01/26/2024 Healthcare maintenan ce (ICD-10 - Z00.00) Immunizations: Prevnar 20 due today, shingrix due today Screening: colonoscopy UTD Labs: BMP today Patient very functional at baseline, able to perform all ADLs and has had no recent falls. No depressive symptoms at this time. 12/14/2023 Right hip pain (ICD- 10 - M25.551) Check x-ray. Recommended scheduled Tylenol, 2 in the morning and 2 in mid afternoon. Discussed safety of Tylenol compared to NSAIDs. PLAN OF TREATMENT Pending Test Test Name Order Date Physical Therapy 05/01/2022 Mammogram : Bilateral 04/22/2021 C-CMP 10/15/2020 Urine Culture, Routine 11/18/2019 Pulmonary Function Test- Complete 2022 M-Complete Blood Count Man Dif 0 M-Urinalysis and Microscopic 02/27/2020 M-Comprehensive Metabolic Panel 01/15/20 M-Comprehensive Metabolic Panel 04/22/20 M-Hemoglobin A1C 04/22/2021 M-Lipid Panel 04/22/2021 M-Lipid Panel 01/14/2021 M-Thyroid Stimulating Hormone 04/22/2021 M-Thyroid Stimulating Hormone 01/14/2021 M-Vitamin B12 01/14/2021 M-Vitamin B12 04/22/2021 M-Urine Culture 02/27/2020 LIPID PANEL, STANDARD (7600) 11/18/2023 COMPREHENSIVE METABOLIC PANEL (86774) BASIC METABOLIC PANEL (01508) 01/29/2024 CBC (INCLUDES DIFF/PLT) (6399) HEMOGLOBIN A1c (496) 11/18/2023 TSH (899) 11/18/2023 Next Appt Details Provider Name:Heladio Palm, 04/19/2024 11:00:00 AM, [address] [address], [place], [address], Insurance Providers Payer Name Payer Address Payer Phone Subscriber Number Group Number Insured Name Patient Relationship to Insured Coverage Start Date Coverage End Date [place] [address] [place] [address] [id number] Mirtha Hernadez Self - patient is the insured [employer] [address] [address] [place] [address] [id number] Kiana mac Mirtha Self - patient is [...] kidney- rupture- renal ablation 10/2019 Respiratory failure- [facility] the n transferred to - then to [facility] for rehab 08/2019
[2024-03-11 13:51] LABS: Anion Gap 10.5 mEq/L (5-15); Blood Urea Nitrogen 33 mg/dl (7-17); Calcium 10.3 mg/dl (8.4-10.2); Carbon Dioxide 28 mmol/L (22.0-30.0); Chloride 103 mmol/L (98-107); Estimated Glomerular Filt Rate 40 ml/min (>60); GFR (African American) 48 ML/MIN (>60); Glucose 198 mg/dl (74-100); Magnesium 1.7 mg/dl (1.6-2.3); Potassium 4.5 mmoL/L (3.5-5.1); Sodium 137 mmol/L (136-145)
== END 2024-03-11 23:59 | disposition home or self-care (01) ==
LOC: RT 12:14
PROVIDERS: PCP Internal Medicine Adolescent Medicine; Visit Provider Internal Medicine
DX: R06.09 Other forms of dyspnea (principal); R00.0 Tachycardia, unspecified; R00.2 Palpitations; I11.9 Hypertensive heart disease without heart failure; I25.118 Atherosclerotic heart disease of native coronary artery with other forms of angina pectoris; E83.42 Hypomagnesemia; E78.2 Mixed hyperlipidemia
CPT/HCPCS: 36415; 80048; 83735; 93270; 93306

== ENCOUNTER 2024-08-02 14:58 | Outpatient (CLI) | payer MEDICARE, OTHER, SELFPAY ==
--- OUTSIDE RECORDS SUMMARY | 2024-08-02 15:07 | XMS_ITS ---
Author Organization [facility] Address [address] [facility] [address] [facility] [address] [place] [address] Care Team Providers Care Creative Intern Name Role Phone Heladio Palm Primary Care Provider REASON FOR VISIT Refills Medications Medication SIG (Take, Route, Fr equency, Duration) Notes Start Date End Date Status venlafaxine 100 mg 1 tab(s) orally once a day for 90 days Active Encounters Encounter Location Date Provider Diagnosis [facility] [address] [facility] [address] [facility] [address] [place] [address] 05/30/2024 Heladio Palm Plan Of Treatment Medication Medication Name Sig Start Date Stop Date Notes venlafaxine 100 mg 1 tab(s) orally once a day for 90 days Progress Notes * Karo VELAZQUEZOB:[birth year] (74 yo F)Acc No.[id number]:05/30/2024 Patient:?PHOEBENikolaiMirtha BONE :1950???Age:74 Y???Sex:Female Address:[address] [place] [address], [address] * Refills? Refill venlafaxine tablet, 100 mg, orally, 90 Tablet, 1 tab(s), once a day, 90 days, Refills=1 * true * Date:? Generated for Printi ng/Faxing/eTransmitting on:?08/02/2024 03:07 PM EST
--- OUTSIDE RECORDS SUMMARY | 2024-08-02 15:07 | XMS_ITS ---
Author Organization [facility] Address [address] [place] [address] Care Team Providers Care Manager Training And Development Name Role Phone Heladio Palm Primary Care Provider Allergies Allergen (clinical drug ingredient) Drug/Non Drug Allergy documented on EMR Reaction Allergy Type Onset Date Status decongestants (uncoded) Unknown Allergy Active IV contrast (uncoded) Unknown Allergy Active sulfa drugs (uncoded) Unknown Allergy Active ciprofloxacin Cipro tingling lips an d tongue Drug Allergy Active codeine codeine Unknown Drug Allergy Active penicillin anaphylaxis Drug Allergy Acti ve REASON FOR VISIT 3 month ck, flu shot Medications Medication SIG (Take, Route, Frequency, Duration) Notes Start Date End Date Status losartan 50 mg 1 tab(s) orally once a day for 90 days Active levothyroxine 100 mcg (0.1 mg) 1 tab(s) orally once a day for 90 days Active carvedilol 25 mg 1 tab(s) orally 2 ti mes a day for 90 days Active venlafaxine 100 mg 1 tab(s) orally once a day for 90 days Active Plavix 75 mg 1 tab(s) orally once a day for 30 day(s) Active Conserving Device as directed as directed 03/22/20 20 Active Farxiga 10 mg TAKE 1 TABLET BY GERARDO TH EVERY DAY FOR 90 DAYS for 90 Active hydrochlorothiazide-triamter mary 25 mg-37.5 mg 1 cap(s) orally once a day for 90 day(s) Active atorvastatin 40 mg 1 tab(s) orally once a day for 90 days Active pantoprazole 40 mg 1 tab(s) orally once a day for 90 days Active Vitamin C 500 mg 1 tab(s) orally once a day for 30 day(s) Active Vitamin D3 2000 intl units as directed o rally once a day for 30 day(s) Active acetaminophen 500 mg 2 tab(s) orally rachel ry 6 hours prn Active magnesium oxide 400 mg 2tabs orally once a day for 30 days Active Pen Needle 6mm 31g - once a day for 30 day(s) 02/13/2020 Active MetFORMIN Hydrochloride ER 750 mg 1 tab(s) orally once a day for 90 days 07/19/2024 Active Gemtesa 75 mg 1 tab(s) orally once a day Active biotin 1000 mcg 1 tab(s) orally once a day Active Zinc 140 mg (as elemental zinc 50 mg) 1 tab(s) orally once a day for 30 day(s) Active Immunizations Vaccine Route Administration Date Status Comme nts Fluzone High Dose IM Intramuscular 07/19/2024 Administered Social History Tobacco Use: Social History Observation Description Date Details (start date - stop date) Former Smoker NA - NA Smoking: Question Answer Notes Are you a: former smoker How long has it been since you last smoked? > 10 years Problems Problem Type SNOMED Code ICD Code Onset Dates Problem Status W/U Status Risk Notes Problem 49017309 Type 2 diabetes mellitus with diabetic chronic kidney disease (E11.22) Active confirmed Problem 804398510 Chronic kidney disease, stage 3b (N18.32) Active confirmed Vital Signs Temperature 97.8 degrees Fahrenheit 07/19/20 24 Blood pressure systolic 122 mm Hg 07/19/20 24 Blood pressure diastolic 72 mm Hg 024 Heart Rate 72 /min 07/19/2024 Height 5 ft 3 in in 07/19/2024 Weight 233 lbs 07/19/2024 BMI 41.27 kg/m2 07/19/2024 Encounters Encounter Location Date Provider Diagnosis [address] [address] 07/19/2024 Heladio Palm Type 2 diabetes mellitus with diabetic chronic kidney disease E11.22 ; Chronic kidney disease, stage 3b N18.32 ; Immunization(s) administered Z23 ; Paroxysmal atrial fibrillation I48.0 and Essential hypertension I10 Assessments Encounter Date Diagnosis (ICD Code) Assessment Notes Treatment Notes Treatment Clinical Notes Section Notes 07/19/2024 Type 2 diabetes mellitus with diabetic chronic kidney disease (ICD-10 - E11.22) Fasting glucose readings at home continue to run 130-140s. Start Metformin nightly. 07/19/2024 Chronic kidney disease, stage 3b (ICD-10 - N18.32) Continues to follow with nephrology and will see them next month. Continue Farxiga. 07/19/2024 Immunization(s) administered (ICD-10 - Z23) 07/19/2024 Paroxysmal atrial fibrillation (ICD-10 - I48.0) Follows with cardiology, still considering Watchman device. Continue Carvedilol. 07/19/2024 Essential hypertension (ICD-10 - I10) Well controlled, continue current regimen. Plan Of Treatment Medication Medication Name Sig Start Date Stop Date Notes MetFORMIN Hydrochloride ER 750 mg 1 tab( s) orally once a day for 90 days 07/19/2024 Treatment Notes Assessment Notes Type 2 diabetes mellitus wit h diabetic chronic kidney disease Fasting glucose readings at home continu e to run 130-140s. Start Metformin nightly. Chronic kidney disease, stage 3b Continues to follow with nephrology and will see them next month. Continue Farxiga. Paroxysmal atrial fibrillation Follows with cardiology, still considering Watchman device. Continue Carvedilol. Essential hypertension Well controlled, continue current regimen. Next Appt Details Follow Up: prn,3 Months, [place] son: Progress Notes * Karo VELAZQUEZOB:[birth year] (74 yo F)Acc No.[id number]:07/19/2024 Progress Notes Patient:?Mirtha VELAZQUEZ Provider:?Heladio Palm MD :1950???Age:74 Y???Sex:Female D ate:07/19/2024 Address:[address] [place] [address] [id number] Subjective: * Chief Complaints: * ???1. 3 month ck. 2. Flu saima t. * HPI: ???gen:? Ms. Velazquez is a 74 year old female presenting to the clinic for a 3 month follow-up. She is doing well today. She is taking all of her medications without any issues.?She reports she is still having high fasting glucose levels of 130s- 140s. She has tried Metformin before and reports she experiences diarrhea with this. She states she gets yearly eye exams and podiatry exams. She reports recently she has been experiencing some pin-prick sensations in her feet. She continues to follow with cardiology and is still considering the Watchman device. She reports palpatations but states they are steady. She denies any chest pain.? She reports some lightheadedness and feels unsteady on her feet sometimes. She?uses a cane and has not had a fall in years. She reports some shortness of air with exertion but states this has not worsened. She denies any other concerns. * 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:?Afib, Basal cell, HTN, HLD, COPD, Left renal artery rupture- ablation done, HSP, Diabetes, Colonoscopy 05/29 with two sessile polyps, EGD 05/29 with erosions and Mukherjee's esophagitis. * Surgical History:?Complete h ysterectomy , Cholecystectomy , Bladder repair , Basal cell removed from face , Left Renal ablation 10/2019, Colonoscopy- no polyps, repeat 2021, , Mukherjee's esophagus EGD 2018 , stent . * Hospitalization/Major Diagno stic Procedure:?Respiratory failure- [facility] then transferred to - then to [facility] for rehab 08/2019, - left kidney- rupture- renal ablation 10/2019. * Family History:?Father: dece ased 58 yrs, CAD.?Mother: , alzheimers, pin strokes.?Paternal Grand Father: .?Paternal Grand Mother: .?Maternal Grand Father: . Maternal Grand Mother: .?Paternal uncle: , CAD.?Paternal aunt: , alzheimers, CAD.?Maternal uncle: , alzheimers, stomach cancer.?Maternal aunt: , dementia, CVA.?Siblings: alive, HTN.?Children: alive, son- [place]- CAD.?1 sister(s) - healthy. 3 son(s) , 1 daughter(s) - healthy. .? * Social History:?Smoking?Are you a:?former smoker,?How long has it been since you last smoked??> 10 years.?Recreational drug use: no. Exercise: no. Home smoke detector use: yes. Caffeine: yes, frequency: occ tea or soda. Living Will: No. Alcohol: no. Sexually active: no. Travel outside [place]: no. Occupation: retired. * Medications:?Taking Gemtesa 75 mg tablet 1 tab(s) orally once a day , Taking biotin 1000 mcg tablet 1 tab(s) orally once a day , Taking Zinc 140 mg (as elemental zinc 50 mg) tablet 1 tab(s) orally once a day , Taking Vitamin C 500 mg tablet 1 tab(s) orally once a day , Taking Vitamin D3 2000 intl units tablet as directed orally once a day , Taking acetaminophen 500 mg tablet 2 tab(s) orally every 6 hours prn , Taking magnesium oxide 400 mg tablet 2tabs orally once a day , Taking Pen Needle 6mm 31g - once a day , Taking Conserving Device as directed as directed , Taking hydrochlorothiazide-triamterene 25 mg-37.5 mg capsule 1 cap(s) orally once a day , Taking Farxiga 10 mg tablet TAKE 1 TABLET BY MOUTH EVERY DAY FOR 90 DAYS , Taking pantoprazole 40 mg delayed release tablet 1 tab(s) orally once a day , Taking atorvastatin 40 mg tablet 1 tab(s) orally once a day , Taking levothyroxine 100 mcg (0.1 mg) tablet 1 tab(s) orally once a day , Taking losartan 50 mg tablet 1 tab(s) orally once a day , Taking venlafaxine 100 mg tablet 1 tab(s) orally once a day , Taking carvedilol 25 mg tablet 1 tab(s) orally 2 times a day , Taking Plavix 75 mg tablet 1 tab(s) orally once a day , Medication List reviewed and reconciled with the patient * Allergies:?penicillin: anaph ylaxis - Allergy, IV contrast: Allergy, sulfa drugs: Allergy, codeine: Allergy, Cipro: tingling lips and tongue - Allergy, decongestants: Allergy. Objective: * Vitals:?Nurse: deyanira, Pain: 0, Temp: 97.8, RR: 20, HR: 72, BP: 122/72, Ht: 5 ft 3 in, Wt: 233, BMI:41.27. * Examination: ???General Examination: ?General?Pleasant and Cooperative, NAD on RA,.?Heart:?Regular Rate and Rhythm, no murmur, rubs or gallops.?Lungs:?LCTAB, No wheezes, crackles or rhonchi, Good air movement,.?Skin:?without acute rashes.?Psych?Normal Mood/Affect.? Assessment: * Assessment: 1.?Type 2 diabetes mellitus with diabetic chronic kidney disease - E11.22 (Primary)???2.?Chronic kidney disease, stage 3b - N18.32???3.?Immunization(s) administered - Z23???4.?Paroxysmal atrial fibrillation - I48.0???5. Essential hypertension - I10??? Plan: * Treatment: 2.?Chronic kidney disease, s tage 3b? Notes: Continues to follow with nephrology and will see them next month. Continue Farxiga.?? 3.?Paroxysmal atrial fibrill ation? Notes: Follows with cardiology, still considering Watchman device. Continue Carvedilol.?? 4.?Essential hypertension? Notes: Well controlled, continue current regimen.?? * Immunizations:? Fluzone High Dose : 0.7 mL (Dose No:1) (Route: Intramuscular) given by MEGHA Islas on Left Deltoid (Immunization(s) administered) * Procedure Codes:?52677 Influ harjit High Dose Vaccine >65 Years Old, G0008 ADMINISTRATION-FLU VACCINE MEDICARE ONLY * Follow Up:?prn,3 Months * * Sign off status: Completed true * Provider:?Heladio Palm MD Date :?07/19/2024 Generated for Ramirezi fátima/Tila/eTransmitting on:?08/02/2024 03:07 PM EST History and Physical Notes * Examination Category Sub-Category Detail Notes Category Not es General Examination Heart: Regular Rate and Rhythm, no murmur, rubs or gallops Lungs: LCTAB, No wheezes, c rackles or rhonchi, Good air movement, Skin: without acute rashes General Pleasant and Coopera tive, NAD on RA, Psych Normal Mood/Affect
--- OUTSIDE RECORDS SUMMARY | 2024-08-02 15:08 | XMS_ITS | Encounter Summary ---
[facility] Address [address] [place] [address] Care Team Providers Care Physician Internist Name Role Phone Dano Romero MD Primary Care Provider [phone] Reason for Visit * Reason Comments Shortness of Breath f/u Encounter Details Date Type Department Care Team (Late st Contact Info) Description 09/29/2019 11:00 AM EST Office Visit 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 acquiring ventilatory support 09/04/2019 (CMS/HCC) (Primary Dx); Community acquired pneumonia of left lower lobe of lung (CMS/HCC); Obesity hypoventilation syndrome; H/O Asthma; DELL ; GERD; Class 3 severe obesity (BMI 52) Social History Tobacco Use Types Packs/Day Years Used Date Smoking Tobacco: Former Cigarettes 1 6 1 994 - 2000 Smokeless Tobacco: Never Comments:Quit 20 years ago Alcohol Use Standard Drinks/Week Comments No 0 (1 standard drink = 0.6 oz pur e alcohol) PHQ-2 Answer Date Recorded PHQ-2 Score 11 08/17/2018 Comments No Sex and Gender Information Value Date Recorded Sex Assigned at Not on file Legal Sex Female 12:36 PM EDT Gender Identity Not on file Sexual Orientation Not on file documented as of this encounter Last Filed Vital Signs Vital Sign Reading Time Taken Comments Blood Pressure 120/68 09/29/2019 10:41 AM EST Pulse 102 09/29/2019 10:41 AM EST Temperature 36.3 ??C (97.4 ??F) 09/29/2019 1 0:41 AM EST Respiratory Rate 18 09/29/2019 10:4 1 AM EST Oxygen Saturation 97% 09/29/2019 10: 41 AM EST 3Liters Continious Inhaled Oxygen Concentration - - Weight 130 kg (286 lb) 09/29/2019 10:41 AM EST Height 157.5 cm (5' 2 ) 09/29/2019 10:4 1 AM EST Body Mass Index 52.31 09/29/2019 10:41 AM EST documented in this encounter Progress Notes * Cyn Borja APRN - 09/29/2019 11:00 AM EST [facility] Follow Up Note Chief Complaint: Chief Complaint Patient presents with ??? Shortness of Breath F/u hospital History of Present Illness: Mirtha Mayberry is a 69 y.o.female here today for Shortness of Breath and Hospital Follow up visit. She was last seen in the office on 06/21/[address] Blanco Galvan. 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 ?? She was admitted??to [facility] on 09/04/2019 for altered mental status and found to be in acute on chronic mixed hypoxemic/hypercarbic respiratory failure for which she was intubated as well as a documented UTI. ??She was placed on broad-spectrum antimicrobial coverage for probable pneumonia and E. coli UTI. They were unable wean pt from vent so she was transferred to [facility] 09/07/2019. She was weaned and liberated from the vent later that day of transfer. She was weaned down to 2-3 L oxygen. She was continued on Rocephin and Zithromax and completed antibiotic therapy on 09/13/2019. Only documentation of MRSA PCR from nares and respiratory panel positivefor parainfluenza. She was discharged 09/15/19 with significant improvement of respiratory symptoms to [facility]. She was discharged with 3 L NC oxygen and BIPAP with O2 Q HS. She was on 60 mg of prednisone daily??started by her visitor information assistant for Henoch- Augusto??nlein purpura prior to admission.This has been weaned per his recommendations and she is currently on 20 mg daily. She also remains on Xarelto for her atrial fibrillation. There was concern for dysphagia post extubation so a FEES was completed Recommendations included regular diet, thin liquids via small single cup sips. No straws. Meds whole or crushed in pudding/puree. Standard aspiration precautions. Patient states that she is much improved and attributes much of her improvement to the switch from CPAP to BIPAP. She was started on CPAP therapy in June, and has this event occurred before she returned to our office. She is less lethargic during the day, is sleeping better, and is able to concentrate more clearly (less of a fog). She is still on 3 L NC and was not on home O2 during the day at baseline. She was started back on Symbicort 160 2 puffs, twice daily. She had previously been weaned off for approximately 4-5 months. I have reviewed the patients past medical, past surgical and family history as noted in Epic. Subjective Social History Socioeconomic History ??? Marital status: Spouse name: Not on file ??? Number of children: Not on file ??? Years of education: Not on file ??? Highest education level: Not on file Tobacco Use ??? Smoking status: Former Smoker Packs/day: 1.00 Years: 6.00 Pack years: 6.00 Types: Cigarettes Last attempt to quit: 2000 Years since quittin.0 ??? Smokeless tobacco: Never Used ??? Tobacco comment: Quit 20 years ago Substance and Sexual Activity ??? Alcohol use: No ??? Drug use: No ??? Sexual activity: Defer Current Outpatient Medications: ??? aspirin 81 MG EC tablet, Take 81 mg by mouth Daily., Disp: , Rfl: ??? azelastine (ASTELIN) 0.1 % nasal spray, 2 sprays into the nostril(s) as directed by provider Daily. Use in each nostril as directed, Disp: 30 mL, Rfl: 5 ??? budesonide-formoterol (SYMBICORT) 160-4.5 MCG/ACT inhaler, Inhale 2 puffs 2 (Two) Times a Day.,Disp: 3 inhaler, Rfl: 3 ??? Cholecalciferol (VITAMIN D3) 5000 units capsule capsule, Take 5,000 Units by mouth Daily., Disp: , Rfl: ??? Ergocalciferol (VITAMIN D2 PO), Take 1.25 mg by mouth 1 (One) Time Per Week., Disp: , Rfl: ??? fluticasone (FLONASE) 50 MCG/ACT nasal spray, 2 sprays into the nostril(s) as directed by provider Daily., Disp: 3 bottle, Rfl: 1 ??? furosemide (LASIX) 40 MG tablet, TAKE 1 TABLET BY MOUTH EVERY DAY (Patient taking differently: Take 40 mg by mouth Daily.), Disp: 30 tablet, Rfl: 5 ??? insulin detemir (LEVEMIR) 100 UNIT/ML injection, Inject 17 Units under the skin into the appropriate area as directed Every 12 (Twelve) Hours for 30 days., Disp: 10.2 mL, Rfl: 0 ??? insulin lispro (humaLOG) 100 UNIT/ML injection, Inject 5 Units under the skin 3 Times a Day Before Meals AND 0-14 Units 4 Times a Day Before Meals & at Bedtime., Disp: 20 mL, Rfl: 0 ??? levalbuterol (XOPENEX HFA) 45 MCG/ACT inhaler, Inhale 1-2 puffs Every 4 (Four) Hours As Needed for Wheezing., Disp: , Rfl: ??? levothyroxine (SYNTHROID) 75 MCG tablet, Take 1 tablet by mouth Daily., Disp: 30 tablet, Rfl: 2 ??? loratadine (CLARITIN) 10 MG tablet, Take 10 mg by mouth Daily., Disp: , Rfl: ??? pantoprazole (PROTONIX) 40 MG EC tablet, Take 1 tablet by mouth Daily for 28 days., Disp: 28 tablet, Rfl: 0 ??? potassium chloride (MICRO-K) 10 MEQ CR capsule, TAKE 1 CAPSULE BY MOUTH EVERY DAY (Patient taking differently: Take 10 mEq by mouth Daily.), Disp: 30 capsule, Rfl: 5 ??? prednisoLONE acetate (PRED FORTE) 1 % ophthalmic suspension, 1 drop., Disp: , Rfl: ??? predniSONE (DELTASONE) 10 MG tablet, Take 60 mg by mouth Daily., Disp: , Rfl: ??? predniSONE (DELTASONE) 5 MG tablet, take 40mg qam X 1 week, then 20mg qam X 1 week, then 10 mg qam X 2 weeks w/f/u in clinic before end of taper., Disp: , Rfl: ??? rivaroxaban (XARELTO) 20 MG tablet, Take 20 mg by mouth Daily., Disp: , Rfl: ??? rosuvastatin (CRESTOR) 10 MG tablet, Take 1 tablet by mouth Every Night., Disp: 90 tablet, Rfl:1 ??? venlafaxine XR (EFFEXOR-XR) 75 MG 24 hr capsule, Take 1 capsule by mouth Daily., Disp: 90 capsule, Rfl: 1 Allergies Allergen Reactions ??? Bactrim [Sulfamethoxazole-Trimethoprim] Paresthesia Recurrent burn of skin on hip when taking med, hemorrhagic circular skin reaction ??? Codeine Anaphylaxis ??? Contrast Dye Anaphylaxis ??? Penicillins Anaphylaxis Has tolerated cephalexin and ceftriaxone 09/2019 ??? Sulfa Antibiotics Other (See Comments) Numb tongue, dizzy, hemorrhagic circular skin reaction ??? Ciprofloxacin Unknown (See Comments) Immunization History Administered Date(s) Administered ??? FLUAD TRI 65YR+ 06/24/2019 ? ? Fluzone High Dose =>65 Years ([facility] ONLY) 09/17/2018 Review of Systems: Review of Systems Constitutional: Negative for chills, fatigue and fever. HENT: Positive for sore throat (since extubation). Negative for congestion, rhinorrhea, sinus pressure, trouble swallowing and voice change. Eyes: Negative for blurred vision and visual disturbance. Respiratory: Positive for shortness of breath. Negative for apnea, cough, chest tightness and wheezing. Cardiovascular: Positive for leg swelling. Negative for chest pain and palpitations. Gastrointestinal: Negative for abdominal pain, nausea and vomiting. Endocrine: Negative for cold intolerance and heat intolerance. Genitourinary: Negative for dysuria and hematuria. Musculoskeletal: Negative for arthralgias and joint swelling. Skin: Negative for rash and bruise. Allergic/Immunologic: Negative for environmental allergies, food allergies and immunocompromised state. Neurological: Positive for tremors (Chronic) and light-headedness. Negative for dizziness, speech difficulty, weakness and headache. Hematological: Negative for adenopathy. Does not bruise/bleed easily. Psychiatric/Behavioral: Positive for depressed mood. Negative for dysphoric mood. The patient is not nervous/anxious. Objective Vital Signs: Vitals: 09/29/19 1041 BP: 120/68 BP Location: Right arm Patient Position: Sitting Cuff Size: Adult Pulse: 102 Resp: 18 Temp: 97.4 ??F (36.3 ??C) SpO2: 97% Comment: 3Liters Continious Weight: 130 kg (286 lb) Height: 157.5 cm (62 ) Physical Exam: Physical Exam Constitutional: She is oriented to person, place, and time. She appears well- developed and well-nourished. She is morbidly obese. HENT: Head: Normocephalic and atraumatic. Mouth/Throat: Oropharynx is clear and moist. Eyes: Pupils are equal, round, and reactive to light. EOM are normal. Neck: Normal range of motion. Neck supple. Cardiovascular: Normal rate and regular rhythm. Pulmonary/Chest: Effort normal. No respiratory distress. She has decreased breath sounds in the right lower field and the left lower field. She has no wheezes. Abdominal: Soft. Bowel sounds are normal. Musculoskeletal: Normal range of motion. She exhibits edema (BLE moderate, chronic (wrapped with vasile)). Lymphadenopathy: Head (right side): No submental, no submandibular and no tonsillar adenopathy present. Head (left side): No submental, no submandibular and no tonsillar adenopathy present. Neurological: She is alert and oriented to person, place, and time. Skin: Skin is warm and dry. Psychiatric: She has a normal mood and affect. Judgment normal. Nursing note and vitals reviewed. Results Review: I reviewed the patient's new clinical results. Xr Chest 2 View Result Date: 09/11/2019 Improving left basilar atelectasis. DICTATED: 09/11/2019 EDITED/ls : 09/11/2019 This report was finalized on 09/11/2019 11:[address] Clay Rodriguez MD. Ct Chest Without Contrast Result Date: 09/08/2019 There is a segmental or subsegmental area of consolidation in the left lower lobe with a small leftpleural effusion. On the right, there is compressive right basilar atelectasis and a small right pleural effusion. E: 09/08/2019 This report was finalized on 09/08/2019 3:[address] Kevin Vergara MD. Xr Chest 1 View Result Date: 09/09/2019 There has been no change since the previous examination of the previous day. E: 09/09/2019 This report was finalized on 09/09/2019 3:[address] Kevin Vergara MD. Xr Chest 1 View Result Date: 09/08/2019 Interval extubation and removal of the esophagogastric tube with lung volumes preserved. Decreased opacifications left lung base may represent decreased atelectasis versus airspace disease with probable small left pleural effusion remaining. E: 09/08/2019 This report was finalized on 09/08/2019 10:[address] Dejon Patrick. Xr Chest 1 View Result Date: 09/07/2019 ETT and NGT in good position as noted above. Signer Name: Gabino Almaguer MD Signed: 09/07/2019 3:39 AM Workstation Name: [facility] Xr Abdomen Kub Result Date: 09/07/2019 NG tube in good position in the distal stomach. Signer Name: Gabino Almaguer MD Signed: 09/07/2019 3:40 AM Workstation Name: [facility] Spirometry Interpretation (@TD): PFTS in the office today, read by me, but jennifer is post hospitalization with mechanical ventilation. 1. Mod airway obstruction. (FEV1 > 50% pred.). 2. The maximum voluntary ventilation (MVV) is reduced. 3. Pre-Bronchodilators FEV1 = 1.17 L. 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 MRSA PCR positive on nasal swab and respiratory panel positive for parainfluenza virus Digestive GERD Other Visit Diagnoses Class 3 severe obesity (BMI 52) Discussion: Patient presents today for hospital follow up visit. She was recently admitted for at [facility] from 09/07/19 to 09/15/19 after being transferred on mechanical ventilation from [facility] (admit 09/04/19). She was weaned and extubated later the day of transfer. She received antibiotic coverage with Grey ephin and Zithromax for LLL CPA and E.coli UTI. She was discharged to [facility] for rehab. She is receiving PT, OT, and speech therapy. She will continue with recommended regular diet, thinliquids via small single sips. No straws. Meds whole or crushed in pudding/puree. Standard aspiration precautions. Plan is to discharge her home on 10/11/19. She is currently on 3 L oxygen, which she was discharged on. She does not wear oxygen at home at baseline. Will recommend weaning oxygen to keep oxygen saturations above 88%, preferably 90-92%. Discussed reason for not wanting O2 saturation at high level, especially given her elevated PCO2 prior tointubation. Hopefully they will be able to wean her off before discharge. We reviewed her spirometry in the office today. Her FEV1/FVC ratio was essentially unchanged at 74% predicted, however her FEV1 decreased from 72 to 58% predicted. Considering that she was just on ventilator and is still in the recover phase, this is not a surprise. She was restarted on Symbicort 160 2 puffs, twice daily while in hospital. She will continue this for now. She may try to wean as previously done after she isat home and feel she is back to baseline. We will repeat spirometry at next office visit. She has a history of oxygen with CPAP at night starting in June based on Sleep Study, but has not returned to the office for FU d/t hospitalization related to hypercapnic respiratory failure. Prior to initiating BIPAP therapy, continuing CPAP was considered, however CPAP was not adequate in treating her chronic mixed respiratory failure and she was ultimately discharged with BIPAP. Given her respiratory failure with hypercapnia, patient will need BIPAP therapy detention. We will make sure patient is able to go home with BIPAP and 2 L home oxygen Q HS through her [employer] company, [employer]. I feel she will require rehospitalization if we are unable to get home BIPAP for her prior to going home. We will need to get download before her next OV. We also discussed caution with any sedating medications which could exacerbate hypercarbia. We also discussed the need for exercise and to increase activity gradually. Certainly some of her SOB is related to deconditioning. Patient would benefit from continued rehab. We discussed this and she wanted to find somewhere closer to her home. Patient may qualify for continued outpatient physical therapy upon discharge from [facility]. Upon discharge, patient's triamterene-hydrochlorothiazide and Diltiazem XR were both discontinued. Patient is to follow up with her current PCP to get these reordered as appropriate. She has follow up apt scheduled with Dr Romero who treated her during her admission at [facility]. She plans to switch to him as her PCP, since her previous provider is retiring. She will keep her apt with himon 10/17/19 with [facility]. She has a follow up apt with Dr Friend, Cardiology, on 10/13/19. She will continue Xarelto for her atrial fib. Once she follows up with Cardiology, she can review her cardiac meds with him. She will continue her prednisone taper as prescribed by Dr Sanchez, Rheumatology. She will reduce herdose to 10 mg daily starting tomorrow for 2 weeks. 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 She will follow up the clinic in approximately 1-[address] Blanco Galvan with spirometry. We will need a download from her BIPAP (ENE Daley) for that visit. She will call in the meantime if she has any additional issues. Plan of care was reviewed with the patient at the conclusion of today's visit. Education was provided regarding diagnosis, management, and any prescribed or recommended over the counter medications. Patient verbalizes understanding of and agreement with management plan. I spent 25 minutes with the patient and daughter in law Beebe. I spent > 50% percent of this time counseling and discussing diagnosis, prognosis, diagnostic testing, evaluation, current status, treatment options, management and clinical trials. Cyn Borja APRN Electronically signed Please note that portions of this note were completed with a voice recognition program. Efforts were made to edit the dictations, but occasionally words are mistranscribed. 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 09/08/2019 09/08/2019 documented as of this encounter Care Teams Physician Internist Relationship Specialty Start Date End Date Dano Romero MD [address] [place] [address] PCP - General Internal Medicine 09/29/19 documented as of this encounter
--- OUTSIDE RECORDS SUMMARY | 2024-08-02 15:08 | XMS_ITS | Encounter Summary ---
[facility] Address [address] [place] [address] Care Team Providers Care Software Engineering Project Manager Name Role Phone Dano Romero MD Primary Care Provider [phone] Encounter Details Date Type Department Care Team (Late st Contact Info) Description 10/14/2019 Patient Outreach [facility] CASE MANAGEMENT [facility]was RN Social History Tobacco Use Types Packs/Day Years [...] on file documented as of this encounter Miscellaneous Notes * Outreach Note - Ifrah Wilson RN - 10/14/2019 3:45 PM EST Care Coordination Note Confirmed / ED: patient transferred there from ED, boarding in ED, awaiting ICU bed. Ifrah Wilson RN Ambulatory Vocational Rehabilitation Teacher 10/14/2019, 3:47 PM documented in this encounter Plan of Treatment Not on file documented as of this encounter Visit Diagnoses Not on filedocumented in this encounter Additional Health Concerns Infection Onset Date Last Indicated Resolved Time 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 09/08/2019 09/08/2019 documented as of this encounter Care Teams Software Engineering Project Manager Relationship Specialty Start Date End Date Dano Romero MD [address] [place] [address] PCP - General Internal Medicine 09/29/19 documented as of this encounter
--- OUTSIDE RECORDS SUMMARY | 2024-08-02 15:08 | XMS_ITS | Encounter Summary ---
[facility] [address] [place] [address] Care Team Providers Care Net Developer With [employer] Name Role Phone Dano Romero MD Primary Care Provider [phone] Encounter Details Date Type Department Care Team (Late st Contact Info) Description 03/02/2020 Episode Changes [facility] CASE MANAGEMENT Zoey Antonio RN Social History Tobacco Use Types Packs/Day [...] on file documented as of this encounter Plan of Treatment Not on file documented as of this encounter Visit Diagnoses Not on filedocumented in this encounter Additional Health Concerns Infection Onset Date Last Indicated Resolved Time 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 09/08/2019 09/08/2019 documented as of this encounter Care Teams Net Developer With [employer] Relationship Specialty Start Date End Date Dano Romero MD [address] [place] [id number] PCP - General Internal Medicine 09/29/19 documented as of this encounter
--- OUTSIDE RECORDS SUMMARY | 2024-08-02 15:08 | XMS_ITS | Patient Health Record ---
Author Organization [facility] Address [address] [place] [address] Care Team Providers Care Communications Strategist Name Role Phone Heladio Palm Primary Care [...] Active penicillin anaphylaxis Drug Allergy Acti ve Results Component Value Reference Range Notes HEMOGLOBIN A1c (496) Reviewed date:04/22/2024 10:23:59 AM Interpretation: Performing Lab:CB, [facility] [id number] [facility], [facility] [id number] Brady Brown Notes/Report: NON-FASTING; NON-FASTING HEMOGLOBIN A1c 7.5 <5.7 % of total Hgb For someone [...] change in test platforms from the Baker Embedded Systems Engineer to the Bela jose c503 may have shifted HbA1c results compared to historical results. Based on laboratory validation testing conducted at [facility], the Bela platform relative to the Baker platform had an average increase in HbA1c value of < or = 0.3%. This difference is within accepted variability established by the National Glycohemoglobin Standardization Program. Note that not all individuals will have had a shift in their results and direct comparisons between historical and current results for testing conducted on different platforms is not recommended. BASIC METABOLIC PANEL (08942 ) Reviewed date:04/22/2024 10:23:59 AM Interpretation: Performing Lab:[facility] [email or web address][facility] [id number] [facility] Brady Brown Notes/Report: NON-FASTING; NON-FASTING GLUCOSE 159 65-99 mg/dL Fasting reference interval For someone without known diabetes, a glucose value >125 mg/dL indicates that they may have diabetes and this should be confirmed with a follow-up test. UREA NITROGEN (BUN) 24 7-25 mg/dL CREATININE 1.37 0.60-1.00 mg/dL EGFR 40 > OR = 60 mL/min/1.73m2 BUN/CREATININE RATIO 18 6-22 (calc) SODIUM 139 135-146 mmol/L POTASSIUM 4.3 3.5-5.3 mmol/L CHLORIDE 102 98-110 mmol/L CARBON DIOXIDE 27 20-32 mmol/L CALCIUM 9.6 8.6-10.4 mg/dL BASIC METABOLIC PANEL (28504 ) Reviewed date:01/27/2024 02:40:09 PM Interpretation: Performing Lab:[facility] [email or web address] [id number] [facility] [place], [facility] CenterSzeoZF[address] Brady Brown Notes/Report: NON-FASTING GLUCOSE 159 65-99 [...] 24 20-32 mmol/L CALCIUM 10.4 8.6-10.4 mg/dL HEMOGLOBIN A1c (496) Reviewed date:12/22/2023 09:20:25 AM Interpretation: Performing Lab:[email or web address] [id number] [facility], [facility] CenterIqoeGR[address] Brady Brown Notes/Report: NON-FASTING; NON-FASTING; NON-FASTING; NON-FASTING [...] change in test platforms from the Baker Embedded Systems Engineer to the Bela jose c503 may have shifted HbA1c results compared to historical results. Based on laboratory validation testing conducted at [facility], the Bela platform relative to the Baker platform had an average increase in HbA1c value of < or = 0.3%. This difference is within accepted variability established by the National Glycohemoglobin Standardization Program. Note that not all individuals will have had a shift in their results and direct comparisons between historical and current results for testing conducted on different platforms is not recommended. CBC (INCLUDES DIFF/PLT) (639 9) Reviewed date:12/22/2023 09:20:25 AM Interpretation: Performing Lab:[email or web address] [facility] [id number] [facility]steAtl[facility], [facility] CenterBlwrZX[address] Brady Brown Notes/Report: NON-FASTING; NON-FASTING; NON-FASTING; NON-FASTING FASTING:YES FASTING: YES WHITE BLOOD CELL COUNT 8.0 3.8-10.8 Thousand/ uL RED BLOOD CELL COUNT 4.08 3.80-5.10 Million/uL HEMOGLOBIN 12.8 11.7-15.5 g/dL HEMATOCRIT 39.0 35.0-45.0 % MCV 95.6 80.0-100.0 fL MCH 31.4 27.0-33.0 pg MCHC 32.8 32.0-36.0 g/dL RDW 12.3 11.0-15.0 % PLATELET COUNT 235 140-400 Thousand/uL MPV 9.8 7.5-12.5 fL ABSOLUTE NEUTROPHILS 5728 6279-7927 cells/uL ABSOLUTE LYMPHOCYTES 6570 086-1390 cells/uL ABSOLUTE MONOCYTES 544 200-950 cells/uL ABSOLUTE EOSINOPHILS 168 15-500 cells/uL ABSOLUTE BASOPHILS 40 0-200 cells/uL NEUTROPHILS 71.6 LYMPHOCYTES 19.0 MONOCYTES 6.8 EOSINOPHILS 2.1 BASOPHILS 0.5 COMPREHENSIVE METABOLIC PANE L (07479) Reviewed date:12/22/2023 09:20:25 AM Interpretation: Performing Lab:LV, [facility] Servicese1355 [facility]te[facility], [facility] CenterOcoyUX[address] Brady Brown Notes/Report: NON-FASTING; NON-FASTING; NON-FASTING; NON-FASTING [...] 12 10-35 U/L ALT 11 6-29 U/L LIPID PANEL, STANDARD (7000) Reviewed date:12/22/2023 09:20:25 AM Interpretation: Performing Lab:CB, [facility] [id number], [place] [id number] Brady Brown Notes/Report: NON-FASTING; NON-FASTING; NON-FASTING; NON-FASTING [...] factors. LDL-C is now calculated using the Liam calculation, which is a validated novel method providing better accuracy than the Friedewald equation in the estimation of LDL-C. Aryan SS et al. CHRISTINA. 2013;310(19): 5768-6456 (http://education.BusinessElite/faq/HBH343) CHOL/HDLC RATIO 4.6 <5.0 (calc) NON HDL CHOLESTEROL 135 <130 mg/dL (calc) For patients with diabetes plus 1 major ASCVD risk factor, treating to a non-HDL-C goal of <100 mg/dL (LDL-C of <70 mg/dL) is considered a therapeutic option. X ray : Hip, Right Reviewed date:12/22/2023 09:20:25 AM Interpretation: Performing Lab: Notes/Report: X ray : Chest Reviewed date:12/22/2023 09:20:25 AM Interpretation: Performing Lab: Notes/Report: Reason For Referral Reason [facility] froilan for occipital JUAREZ injections Diagnosis 1 Bilateral occipital neuralgia (M54.81) Referral Organization [facility] RUPA MANUEL Referring Provider First Name Heladio Referring Provider Last Name Arpita Referring Provider Speciality Internal M edicine General Notes Carmen Harvey 01:08:28 PM > faxed and they will call pt to schedule- pt informed Referral Priority Routine Medications Medication SIG (Take, Route, Frequency, Duration) Notes Start Date End Date Status MetFORMIN Hydrochloride ER 750 mg 1 tab(s) orally once a day for 90 days 07/19/2024 Active Conserving Device as directed as directed 03/22/20 Active Farxiga 10 mg TAKE 1 TABLET BY GERARDO TH EVERY DAY FOR 90 DAYS for 90 Active hydrochlorothiazide-triamter mary 25 mg-37.5 mg 1 cap(s) orally once a day for 90 day(s) Active Gemtesa 75 mg 1 tab(s) orally once a day Active atorvastatin 40 mg 1 tab(s) orally once a day for 90 days Active biotin 1000 mcg 1 tab(s) orally once a day Active pantoprazole 40 mg 1 tab(s) orally once a day for 90 days Active Zinc 140 mg (as elemental zinc 50 mg) 1 tab(s) orally once a day for 30 day(s) Active losartan 50 mg 1 tab(s) orally once a day for 90 days Active Vitamin C 500 mg 1 tab(s) orally once a day for 30 day(s) Active levothyroxine 100 mcg (0.1 mg) 1 tab(s) orally once a day for 90 days Active Vitamin D3 2000 intl units as directed o hector once a day for 30 day(s) Active carvedilol 25 mg 1 tab(s) orally 2 ti mes a day for 90 days Active acetaminophen 500 mg 2 tab(s) orally rachel ry 6 hours prn Active venlafaxine 100 mg 1 tab(s) orally once a day for 90 days Active magnesium oxide 400 mg 2tabs orally once a day for 30 days Active Pen Needle 6mm 31g - once a day for 30 day(s) 02/13/2020 Active Plavix 75 mg 1 tab(s) orally once a day for 30 day(s) Active Immunizations Vaccine Route Administration Date Status Comme nts Prevnar PCV-20 (Pneumococcal conjugate 20) IM Intramuscular 01/26/2024 Administered SHINGRIX IM Intramuscular 01/26/2024 Administered SHINGRIX IM Intramuscular 04/19/2024 Administered Fluzone High Dose IM Intramuscular 06/04/2020 Administered Given by [facility] Fluzone High Dose IM Intramuscular 07/03/2022 Administered Fluzone High Dose IM Intramuscular 07/19/2024 Administered Arexvy IM Intramuscular 04/19/2024 Administered Social History Tobacco Use: Social History Observation Description Date Details (start date - stop date) Former Smoker NA - NA Smoking: Question Answer Notes Are you a: former smoker How long has it been since you last smoked? > 10 years Problems Problem Type SNOMED Code ICD Code Onset Dates Problem Status W/U Status Risk Notes Problem 50819704 Type 2 diabetes mellitus with diabetic chronic kidney disease (E11.22) Active confirmed Problem 965469046 Paroxysmal atria l fibrillation (I48.0) Active confirmed Problem Hypothyroid (79666342) Hypothyroid (E03.9) Active confirmed Problem Atrial fibrillation (94880290) Afib (I48.91) Active confirmed Problem Morbid obesity (260626108) Morbid obesity (E66.01) Active confirmed Problem 069006519 Neuropathy (G62.9) Active confirmed Problem Essential hypertension (87412753) Essential hypertension (I10) Active confirmed Problem Type 2 diabetes mellitus (69208547) Type 2 diabetes mellitus (E11.9) Active confirmed Problem 986321875 Atherosclerosis of douglas coronary artery of douglas heart without angina pectoris (I25.10) Active confirmed Problem Obstructive sleep apnea (24672150) Obstructive sleep apnea (G47.33) Active confirmed Problem 451382179 Moderate persistent asthma without complication (J45.40) Active confirmed Problem Acute depression (930711384) Acute depression (F32.9) Active confirmed Problem 826748391 Chronic kidney disease, unspecified CKD stage (N18.9) Active confirmed Problem 549797087 Hypercapnic respiratory failure, chronic (J96.12) Active confirmed Problem 181704546 Chronic kidney disease, stage 3b (N18.32) Active confirmed Vital Signs Heart Rate 72 /min 07/19/2024 Temperature 97.8 degrees Fahrenheit 07/19/2024 Blood pressure diastolic 72 mm Hg 07/19/2024 Height 5 ft 3 in in 07/19/2024 Blood pressure systolic 122 mm Hg 07/19/2024 Weight 233 lbs 07/19/2024 BMI 41.27 kg/m2 07/19/2024 Encounters Encounter Location Date Provider Diagnosis [facility] [address] [place], [place] [address] 12/14/2023 Heladio Palm Chronic kidney disea se due to type 2 diabetes mellitus E11.22 ; Essential hypertension I10 ; Hypercapnic respiratory failure, chronic J96.12 ; Moderate persistent asthma without complication J45.40 and Right hip pain M25.551 [facility] [address] [address] 01/26/2024 eHladio Palm Essential hypertensi on I10 ; Chronic kidney disease, unspecified CKD stage N18.9 ; Bilateral occipital neuralgia M54.81 ; Encounter for immunization Z23 and Healthcare maintenance Z00.[address] [facility] [address] [address] 04/19/2024 Heladio Palm Sensation of fullnes s in left ear H93.8X2 ; Chronic kidney disease, unspecified CKD stage N18.9 ; Type 2 diabetes mellitus E11.9 ; Essential hypertension I10 ; Paroxysmal atrial fibrillation I48.0 and Encounter for immunization Z23 [facility] [address] [address] 07/19/2024 Heladio Palm Type 2 diabetes ruben itus with diabetic chronic kidney disease E11.22 ; Chronic kidney disease, stage 3b N18.32 ; Immunization(s) administered Z23 ; Paroxysmal atrial fibrillation I48.0 and Essential hypertension I10 [facility] [address] [facility] [address] [place], [place] [address] 11/18/2023 Heladio Arpita Afib I48.91 ; Type 2 diabetes mellitus E11.9 ; Hypothyroid E03.9 and Atherosclerosis of douglas coronary artery of douglas heart without angina pectoris I25.10 [facility] [address] [address] 01/27/2024 Heladio Palm [facility] [address] [facility] [address] [place] [address] 01/29/2024 Heladiojosé miguel Palm Chronic kidney disea se, unspecified CKD stage N18.9 [facility] [address] [place] [address] 05/06/2024 Heladio Besson [facility] [address] [place] [address] 05/30/2024 Heladiojosé miguel Palm Assessments Encounter Date Diagnosis (ICD Code) Assessment Notes Treatment Notes Treatment Clinical Notes Section Notes 11/18/2023 Afib (ICD-10 - I48.91) 11/18/2023 Type 2 diabetes mellitus (ICD-10 - E11.9) 12/14/2023 Essential hypertension (ICD-10 - I10) Blood pressure under good control 12/14/2023 Chronic kidney disease due to type 2 diabetes mellitus (ICD-10 - E11.22) Congratulated patient on intentional weight loss. Check labs. Will follow closely. Will review labs and have patient come back in for lab review and her Medicare wellness update. 01/26/2024 Chronic kidney disease, unspecified CKD stage (ICD-10 - N18.9) Started farxiga 10 mg last visit, Cr 1.40 on BMP at that time. Will repeat BMP to monitor renal function and electrolytes. 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 Little to no effusion of left ear. -Advised patient to increase flonase to twice a day and see if symptoms improve. 07/19/2024 Type 2 diabetes mellitus with diabetic chronic kidney disease (ICD-10 - E11.22) Fasting glucose readings at home continue to run 130-140s. Start Metformin nightly. 07/19/2024 Chronic kidney disease, stage 3b (ICD-10 - N18.32) Continues to follow with nephrology and will see them next month. Continue Farxiga. 04/19/2024 Type 2 diabetes mellitus (ICD-10 - E11.9) -A1c 7.8% 01/2024 -On Farxiga 10 mg only -Having elevated fasting blood sugars in 140-150s, with sugars getting as high as 250s during the day (post prandial) -Will recheck A1c today 07/19/2024 Immunization(s) administered (ICD-10 - Z23) 01/26/2024 Bilateral occipital neuralgia (ICD-10 - M54.81) [...] immunization (ICD-10 - Z23) 11/18/2023 Atherosclerosis of douglas coronary artery of douglas heart without angina pectoris (ICD-10 - I25.10) 04/19/2024 Essential hypertension (ICD-10 - I10) -Well controlled -No changes to mediations 07/19/2024 Paroxysmal atrial fibrillation (ICD-10 - I48.0) Follows with cardiology, still considering Watchman device. Continue Carvedilol. 07/19/2024 Essential hypertension (ICD-10 - I10) Well controlled, continue current regimen. 01/26/2024 Healthcare maintenance (ICD-10 - Z00.00) Immunizations: Prevnar 20 due today, shingrix due today Screening: colonoscopy UTD Labs: BMP today Patient very functional at baseline, able to perform all ADLs and has had no recent falls. No depressive symptoms at this time. 04/19/2024 Paroxysmal atrial fibrillation (ICD-10 - I48.0) -Follows with [facility] cardiology and cardiology -On coreg. Not on DOAC due to previous renal artery bleeding. -Being considered for Watchmen device by [facility], she will discuss with Dr. Cedeño 12/14/2023 Right hip pain (ICD-10 - M25.551) Check x-ray. Recommended scheduled Tylenol, 2 in the morning and 2 in mid afternoon. Discussed safety of Tylenol compared to NSAIDs. 04/19/2024 Encounter for immunization (ICD-10 - Z23) -Shingrix #2, RSV given today Plan Of Treatment Pending Test Test Name Order Date Physical Therapy 05/01/2022 Mammogram : Bilateral 04/22/2021 C-CMP 10/15/2020 Urine Culture, Routine 11/18/2019 Pulmonary Function Test- Complete 2022 M-Complete Blood Count Man Dif 0 M-Urinalysis and Microscopic 02/27/2020 M-Comprehensive Metabolic Panel 04/22/20 21 M-Comprehensive Metabolic Panel 01/15/20 21 M-Hemoglobin A1C 04/22/2021 M-Lipid Panel 04/22/2021 M-Lipid Panel 01/14/2021 M-Thyroid Stimulating Hormone 01/14/2021 M-Thyroid Stimulating Hormone 04/22/2021 M-Vitamin B12 04/22/2021 M-Vitamin B12 01/14/2021 M-Urine Culture 02/27/2020 LIPID PANEL, STANDARD (7600) 11/18/2023 COMPREHENSIVE METABOLIC PANEL (00886) BASIC METABOLIC PANEL (21684) 01/29/2024 CBC (INCLUDES DIFF/PLT) (6399) HEMOGLOBIN A1c (496) 11/18/2023 TSH (899) 11/18/2023 Insurance Providers Payer Name Payer Address Payer Phone Subscriber Number Group Number Insured Name Patient Relationship to Insured Coverage Start Date Coverage End Date [place] [address] [id number] Mirtha Hernadez Self - patient is the insured [employer] [address] [address] [place] [address] [phone] [id number] Mirtha Hernadez Self - patient is the insured Medical (General) History 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 History ICD Code Afib Basal cell HTN HLD COPD Left renal artery rupture- ablation done [facility] Diabetes Colonoscopy 05/29 with two sessile polyps 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
--- OUTSIDE RECORDS SUMMARY | 2024-08-02 15:08 | XMS_ITS | Encounter Summary ---
[facility] Address [address] [place] [address] Care Team Providers Care Master Hearth Technician Name Role Phone Dano Romero MD Primary Care Provider [phone] Encounter Details Date Type Department Care Team (Late st Contact Info) Description 10/14/2019 Episode Changes [facility] CASE MANAGEMENT Ifrah Dominguez RN Social History Tobacco Use Types Packs/Day [...] documented as of this encounter Care Teams Master Hearth Technician Relationship Specialty Start Date End Date Dano Romero MD [address] [place] [address] PCP - General Internal Medicine 09/29/19 documented as of this encounter
--- OUTSIDE RECORDS SUMMARY | 2024-08-02 15:08 | XMS_ITS | Encounter Summary ---
[facility] Organization [facility] Address [address] [place] [address] Care Team Providers Care Network Infrastructure Architect Name Role Phone Dano Romero MD Primary Care Provider [phone] Reason for Visit * Reason Onset Date Comments Med Refill 04/08/2022 Encounter Details Date Type Department Care Team (Late st Contact Info) Description 04/08/2022 Refill [facility] [address] [id number] Jacob Nicholas MD [address] [place] [address] Encounter for screening colonoscopy Social History Tobacco Use Types Packs/Day Years [...] documented as of this encounter Visit Diagnoses Diagnosis Encounter for screening colonoscopy documented in this encounter Additional Health Concerns Infection Onset Date Last Indicated Resolved Time 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 09/08/2019 09/08/2019 documented as of this encounter Care Teams Network Infrastructure Architect Relationship Specialty Start Date End Date Dano Romero MD [address] [place] [address] PCP - General Internal Medicine 09/29/19 documented as of this encounter
--- OUTSIDE RECORDS SUMMARY | 2024-08-02 15:08 | XMS_ITS | Encounter Summary ---
[facility] Address [address] [place] [address] Care Team Providers Care Retail Event Coordinator Name Role Phone Dano Romero MD Primary Care Provider [phone] Encounter Details Date Type Department Care Team (Late st Contact Info) Description 04/28/2022 1:30 PM EDT Outside Facility Service [facility] [address] [address] Jacob Nicholas MD [address] [place] [id number] Social History Tobacco Use Types Packs/Day Years [...] Procedure Name Priority Date/Time Associated Diagnosis Comments SCANNED - COLONOSCOPY 04/28/2022 documented in this encounter Results * SCANNED - COLONOSCOPY (04/28/2022) us Jacob Nicholas MD CHART REVIEW TABS Final Result documented in this encounter Visit Diagnoses Not on filedocumented in this encounter Additional Health Concerns Infection Onset Date Last Indicated Resolved Time 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 09/08/2019 09/08/2019 documented as of this encounter Care Teams Retail Event Coordinator Relationship Specialty Start Date End Date Dano Romero MD [address] [place] [address] PCP - General Internal Medicine 09/29/19 documented as of this encounter
--- OUTSIDE RECORDS SUMMARY | 2024-08-02 15:08 | XMS_ITS | Encounter Summary ---
Author Organization [facility] Address [address] [place] [address] Care Team Providers Care Slip Cover Sewer Name Role Phone Dano Romero MD Primary Care Provider [phone] Encounter Details Date Type Department Care Team (Late st Contact Info) Description 02/13/2020 3:15 PM EDT Telemedicine [facility] [address] [phone] Jacob Nicholas MD [address] [address] Chronic abdominal pain (Primary Dx) Social History Tobacco Use Types Packs/Day Years [...] on file documented as of this encounter Progress Notes * Jacob Nicholas MD - 02/13/2020 3:15 PM EDT PCP: Dano Romero MD No chief complaint on file. cc: abdominal pain You have chosen to receive care through a telehealth visit. Do you consent to use a video/audio connection for your medical care today? Yes History of Present Illness: Mirtha Mayberry is a 70 y.o. female who presents to GI clinic as a follow up for abdominal pain. She has a h/o gerd, com2 jimenez's, obesity, chronic respiratory failure. She recently was hospitalized at x 5 weeks related to a intraabdominal hematoma. On eliquis and perhaps mild trauma, she presented to [facility] ed with hypotension and pain. She was transferred to for what sounds coil embolism via IR. She subsequently developed pna and has gradually been getting better. She admits to substernal abdominal pain that radiates into the back. This pain can last all day but is gone when she sits and leans forward. The pain is positional. No melena or hematochezia. Past 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: Diagnosis Date ??? Anxiety ??? Arthritis ??? Atrial fibrillation (CMS/HCC) ??? Cataract ??? Cellulitis BLE ??? COPD (chronic obstructive pulmonary disease) (CMS/HCC) ??? Depression ??? Diabetes mellitus (CMS/HCC) ??? Disease of thyroid gland ??? GERD (gastroesophageal reflux disease) ??? HSP (Henoch Schonlein purpura) (CMS/HCC) ??? Hyperlipidemia ??? Hypertension ??? Sleep apnea Home Cpap use ??? Vasculitis (CMS/HCC) Past Surgical History: Procedure Laterality Date ??? CATARACT EXTRACTION Left 2018 ??? HYSTERECTOMY 1989 ??? OOPHORECTOMY Bilateral 1989 Current Outpatient Medications: ??? aspirin 81 MG [...] Time Per Week., Disp: , Rfl: ??? ertapenem (INVanz) 1 g injection, Inject into the appropriate muscle as directed by prescriber., Disp: , Rfl: ??? fluticasone (FLONASE) 50 MCG/ACT nasal spray, 2 sprays into the nostril(s) as directed by provider Daily., Disp: 3 bottle, Rfl: 1 ??? furosemide (LASIX) 40 MG tablet, TAKE 1 TABLET BY MOUTH EVERY DAY (Patient taking differently: Take 40 mg by mouth Daily.), Disp: 30 tablet, Rfl: 5 ??? insulin lispro (humaLOG) 100 UNIT/ML injection, [...] by mouth Daily., Disp: , Rfl: ??? potassium chloride (MICRO-K) 10 MEQ CR [...] skin reaction ??? Ciprofloxacin Unknown (See Comments) Family History Problem Relation Age of Onset ??? Stroke Mother ??? Alzheimer's disease Mother ??? Alzheimer's disease Paternal Aunt ??? Heart failure Father ??? Heart failure Paternal Grandfather ??? Breast cancer Neg Hx ??? Ovarian cancer Neg Hx Social History Socioeconomic History ??? Marital status: Spouse name: Not on file ??? Number of children: Not on file ??? Years of education: Not on file ??? Highest education level: Not on file Tobacco Use ??? Smoking status: Former Smoker Packs/day: 1.00 Years: 6.00 Pack years: 6.00 Types: Cigarettes Last attempt to quit: 2000 Years since quittin.4 ??? Smokeless tobacco: Never Used ??? Tobacco comment: Quit 20 years ago Substance and Sexual Activity ??? Alcohol use: No ??? Drug use: No ??? Sexual activity: Defer Review of Systems A complete 12 point ros was asked and is negative except for that mentioned above. In particular: No fever No rash No increased arthralgias No worsening edema No cough No dyspnea No chest pain There were no vitals filed for this visit. Physical Exam General: oxygen therapy, nasal cannula, older than stated age A+O x 3 NAD HEENT: NCAT, pupils equal appearing, sclera appear white NECK: full ROM Respiratory: symmetric chest rise, normal effort, normal work of breathing, no overt rales Abomen: non-distended Skin: normal color, no jaundice Neuro: no tremor, no facial droop Psych: normal mood and affect Assessment/Plan 1.) Positional abdominal pain 2.) History of intraabdominal hematoma x 10 cm 3.) history of anticoagulation use 4.) Com2 jimenez's, last egd 2017 Would defer to pcp repeat imaging of abdominal cavity to assess hematoma and underlying cause for hematoma. I would hold off on repeat egd as her history is favorable for positional pain that may be related to what hospitalized her x 5 weeks. Should her pain be persistent or vague and surveillance imaging not be suggestive for continued cause of pain, I would offer expedited egd. Jacob Nicholas MD 02/13/2020 documented in this encounter Plan of Treatment Not on file documented as of this encounter Visit Diagnoses Diagnosis Chronic abdominal pain- Primary Abdominal pain, unspecified site documented in this encounter Additional Health Concerns Infection Onset Date Last Indicated Resolved Time 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 09/08/2019 09/08/2019 documented as of this encounter Care Teams Slip Cover Sewer Relationship Specialty Start Date End Date Dano Romero MD [address] [place] [address] PCP - General Internal Medicine 09/29/19 documented as of this encounter
--- OUTSIDE RECORDS SUMMARY | 2024-08-02 15:08 | XMS_ITS | Encounter Summary ---
[facility] Address [address] [place] [address] Care Team Providers Care Icing Mixer Name Role Phone Dano Romero MD Primary Care Provider [phone] Encounter Details Date Type Department Care Team (Late st Contact Info) Description 10/13/2019 Episode Changes [facility] Beatris Khan RN [address] [place] [address] Social History Tobacco Use Types Packs/Day Years [...] documented as of this encounter Care Teams Icing Mixer Relationship Specialty Start Date End Date Dano Romero MD [address] [place] [id number] PCP - General Internal Medicine 09/29/19 documented as of this encounter
--- OUTSIDE RECORDS SUMMARY | 2024-08-02 15:08 | XMS_ITS | Encounter Summary ---
[facility] Address [address] [place] [address] Care Team Providers Care Wheel And Axle Inspector Name Role Phone Dano Romero MD Primary Care Provider [phone] Reason for Visit * Reason Onset Date Comments Med Refill 01/15/2022 Encounter Details Date Type Department Care Team (Late st Contact Info) Description 01/15/[address] [facility] [address] [phone] Jacob Nicholas MD [address] [place] [address] Encounter for screening colonoscopy (Primary Dx) Social History Tobacco Use Types [...] encounter Visit Diagnoses Diagnosis Encounter for screening colonoscopy- Primary documented in this encounter Additional Health Concerns Infection Onset Date Last Indicated Resolved Time 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 09/08/2019 09/08/2019 documented as of this encounter Care Teams Wheel And Axle Inspector Relationship Specialty Start Date End Date Dano Romero MD [address] [place] [address] PCP - General Internal Medicine 09/29/19 documented as of this encounter
--- OUTSIDE RECORDS SUMMARY | 2024-08-02 15:08 | XMS_ITS | Clinical Summary ---
Author Organization [facility] Address [address] [place] [address] Care Team Providers Care Storm Window Installer Name Role Phone Dano Romero MD Primary Care Provider [phone] Allergies Active Allergy Reactions Criticality Noted Date Comments Sulfamethoxazole-Trime thoprim Paresthesia High 07/22/2019 Recurrent burn of skin on hip when taking med, hemorrhagic circular skin reaction Ciprofloxacin Unknown (See Comments) 03/18/2013 Codeine Anaphylaxis High 03/18/2013 Contrast Dye (Echo Or Unknown Ct/Mr) Anaphylaxis High 03/18/2013 Penicillins Anaphylaxis High 03/18/2013 Has tolerated cephalexin and ceftriaxone 09/2019 Sulfa Antibiotics Other (See Comments) High 09/09/19 20 Numb tongue, dizzy, hemorrhagic circular skin reaction Medications Cholecalciferol (VITAMIN D3) 5000 units capsule capsule Take 5,000 Units by mouth Daily. Active loratadine (CLARITIN) 10 MG tablet Take 10 mg by mouth Daily. Active Ascorbic Acid (Vitamin C) 250 MG chewable tablet 0 Active atorvastatin (LIPITOR) 40 MG tablet 0 Active Biotin 86692 MCG tablet 1 Active carvedilol (COREG) 25 MG tablet 2 Active Cholecalciferol (Vitamin D3) 25 MCG (1000 UT) capsule 0 Active Cyanocobalamin (B-12) 1000 MCG capsule 1 Active gabapentin (NEURONTIN) 100 MG capsule 1 Active glipizide (GLUCOTROL) 5 MG tablet 2 Active levothyroxine (Levo-T) 100 MCG tablet 0 Active losartan (COZAAR) 25 MG tablet 2 Active Magnesium 100 MG tablet Active omeprazole (priLOSEC) 20 MG capsule 0 Active Zinc 15 MG capsule Active Sod Picosulfate-Mag Ox-Cit Acd 10-3.5-12 MG-GM -GM/160ML solutionIndicati ons:Encounter for screening colonoscopy Take 160 mL by mouth Take As Directed for 2 doses. 320 mL 2 Active Active Problems Problem Noted Date Diagnosed Date Retroperitoneal hemorrhage 10/12/2019 E. coli UTI 09/04/2019 09/10/2019 History of asthma but no obs truction on PFTs. Questionable acute exacerbation this admission 09/07/2019 Mild LLL CAP. MRSA PCR posit zen on nasal swab and respiratory panel positive for parainfluenza virus 09/07/2019 DELL on CPAP 09/06/2019 Chronic anticoagulation on Xarelto 09/06/2019 Hx of Henoch-Schonlein purpu ra diagnosed 2005 with frequent steroid use for vasculitis (last course 08/17/2019) 09/06/2019 Overview (09/06/2019): Diagnosed in 2005; followed by [facility] Hypothyroidism 09/06/2019 Chronic steroid use 09/06/2019 Recent diagnosis of atrial f ibrillation and placed on Xarelto 09/06/2019 Morbid obesity with BMI of 50.0-59.9, adult 08/09 Acute on chronic respiratory failure with hypoxia and hypercapnia 09/06/2019 HFrEF 09/06/2019 Super obesity (BMI > 50) 06/21/2019 B12 deficiency 12/21/2018 H/O Asthma 12/09/2018 Perennial rhinitis 12/09/2018 GERD 12/09/2018 Mukherjee esophagus 12/09/2018 DELL 12/09/2018 Obesity hypoventilation syndrome 12/09/2018 T2DM 10/28/2018 Vertigo 04/30/2018 Edema, peripheral 02/24/2018 Anxiety, generalized 02/24/2018 Dyslipidemia on statin 02/24/2018 Essential hypertension 02/24/2018 Laryngeal spasm 02/24/2018 Immunizations Name Administration Dates Next Due FLUAD TRI 65YR+ 06/24/2019 Fluzone High-Dose 65+YRS 09/17/2018 Family History 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 Relation Name Comments Heart failure Father Alzheimer's disease Mother Stroke Mother Alzheimer's disease Paternal Aunt Heart failure Paternal Grandfather Breast cancer Neg Hx Ovarian cancer Neg Hx Relation Name Status Comments Father Maternal Grandfather Maternal Grandmother Mother Paternal Aunt Paternal Grandfather Paternal Grandmother Social History Tobacco Use Types Packs/Day Years Used Date Smoking Tobacco: Former Cigarettes 1 6 1 994 - 1999 Smokeless Tobacco: Never Tobacco Cessation:Counseling Given: No Comments:Quit 20 years ago Alcohol Use Standard [...] on file Sexual Orientation Not on file Last Filed Vital Signs Vital Sign Reading Time Taken Comments Blood Pressure 153/89 10/13/2019 12:49 AM EST Pulse 116 10/13/2019 12:49 AM EST Temperature 36.9 ??C (98.4 ??F) 10/12/2019 5:05 PM ES T Respiratory Rate 16 10/13/2019 12:49 AM EST Oxygen Saturation 92% 10/13/2019 12:49 AM EST Inhaled Oxygen Concentration - - Weight 130 kg (286 lb) 10/12/2019 5:05 PM EST Height 156.2 cm (5' 1.5 ) 10/12/2019 5:05 PM EST Body Mass Index 53.16 10/12/2019 5:05 PM EST Plan of Treatment Health Maintenance Due Date Last Done Comments COLOGUARD 1950 COLON CANCER SCREENING 5 YEA R SIGMOIDOSCOPY [address] COLONOGRAPHY 1950 DXA SCAN 1950 FECAL OCCULT BLOOD TEST 1950 FIT Testing (1 year) 1950 URINE MICROALBUMIN 1950 Pneumococcal Vaccine 65+ (1 of 2 - PCV) 1955 TDAP/TD VACCINES (1 - Tdap) 02/02/1968 ZOSTER VACCINE (2 of 3) 06/18/2017 04/23/2017 DIABETIC FOOT EXAM 02/02/2018 ANNUAL WELLNESS VISIT 02/24/2019 02/24/2018 DIABETIC EYE EXAM 01/12/2020 01/11/2019, , 01/05/2019 LIPID PANEL 11/23/2020 11/24/2019, 03/07, 02/24/2018, Additional history exists HEMOGLOBIN A1C 07/17/2021 01/14/2021, 02/0 05/2021, 07/24/2020, Additional history exists RSV Vaccine - Adults (1 - 1- dose 75+ series) 02/02/2024 INFLUENZA VACCINE 04/07/2024 06/27/2021, , 06/04/2020, Additional history exists COVID-19 Vaccine (4 - 2023-2 5 season) 2024 06/27/2021, 11/01/2020, 10/04/2020 COLONOSCOPY 04/28/2027 04/28/2022, 05/19/2018 COLORECTAL CANCER SCREENING 04/28/2027 HEPATITIS C SCREENING Completed 12/13/2019 , 12/21/2018, 12/21/2018 MAMMOGRAM Discontinued 11/28/2021, 11/06, 10/13/2014 [facility] Discontinued Procedures Procedure Name Priority Date/Time Associated Diagnosis Comments SCANNED - COLONOSCOPY 04/28/2022 MAMMO SCREENING DIGITAL TOMOSYNTHESIS BILATERAL W CAD Routine 11/28/2021 10:35 AM EDT Visit for screening mammogram HEMOGLOBIN A1C Routine 09/07/2019 4:10 PM EST SCANNED - INFLUENZA 06/24/2019 LIPID PANEL Routine 03/25/2019 10:33 AM EDT Familial hypercholesterolemia SCANNED - EYE EXAM 01/05/2019 HEPATITIS C ANTIBODY Routine 12/21/2018 10:57 AM EDT Type 2 diabetes mellitus with chronic kidney disease, without long-term current use of insulin, unspecified CKD stage Familial hypercholesterolemia from Last 3 Months or Most Recently Relevant to Health Maintenance Results * SCANNED - COLONOSCOPY (04/28/2022) Jacob Nicholas MD CHART REVIEW TABS Final Result * Mammo Screening Digital Tomosynthesis Bilateral With CAD (11/28/2021 10:35 AM EDT) Anatomical Region Laterality Modality Breast N/A Mammography 11/30/2021 4:16 PM EDT Impressions 11/30/2021 4:16 PM EDT Negative bilateral mammogram. RECOMMENDATION: ??Continue annual screening mammography. BI-RADS CATEGORY 1, NEGATIVE. CAD was utilized. The standard false-negative rate of mammography is between 10% and 25%. Complex patterns or increased breast density will markedly elevate the false-negative rate of mammography. ?? A letter, in lay terminology, with the results of this exam will be mailed to the patient. ?? This report was finalized on 11/30/2021 4:[address] Hailey Rivas MD. Narrative 11/30/2021 4:16 PM EDT DIGITAL SCREENING MAMMOGRAM WITH TOMOSYNTHESIS HISTORY: Screening Mammography. Low dose full field digital breast tomosynthesis imaging was performed with 2D and 3D acquisitions consisting of bilateral CC and MLO views. Examination is compared to prior examination dating back to 11/30/2018. Examination is read in conjunction with computer aided detection. FINDINGS: ?? There are scattered areas of fibroglandular density. No suspicious masses, microcalcifications or ??areas of architectural distortion are present. Dano Romero MD IMG MAMMOGRAPHY ORDERABLES Final Result * (ABNORMAL) Hemoglobin A1c (09/07/2019 4:10 PM EST) Hemoglobin A1C 9.10(H) 4.80 - 5.60 % 09/07/2019 4:51 PM EST [facility] Blood Venipuncture / Unknown 09/07/2019 4:10 PM EST 09/07/2019 4:19 PM EST Narrative [facility] - 09/07/2019 4:51 PM EST Hemoglobin A1C Ranges: Increased Risk for Diabetes ??5.7% to 6.4% Diabetes ? >= 6.5% Diabetic Goal ?< 7.0% Sammie Morales DNP, [employer] LAB BLOOD ORDERABLES Fi nal Result [facility]
[address] [place] [address], * SCANNED - INFLUENZA (06/24/2019) Huber Grossman MD CHART REVIEW TABS Final Re sult * (ABNORMAL) Lipid Panel (03/25/2019 10:33 AM EDT) Total Cholesterol 152 0 - 200 mg/dL 03/25/2019 6:52 PM EDT [facility] Triglycerides 165(H) 0 - 150 mg/dL 03/25/2019 6:52 PM EDT [facility] HDL Cholesterol 37(L) 40 - 60 mg/dL 03/25/2019 6:52 PM EDT [facility] LDL Cholesterol 82 0 - 100 mg/dL 03/25/2019 6:52 PM EDT [facility] VLDL Cholesterol 33 5 - 40 mg/dL 03/25/2019 6:52 PM EDT [facility] LDL/HDL Ratio 2.22 03/25/2019 6:52 PM EDT [facility] Blood Left upper arm structure / Unknown Venipuncture / Unknown 03/25/2019 10:33 AM EDT 03/25/2019 10:33 AM EDT Narrative [facility] - 03/25/2019 6:52 PM EDT Cholesterol Reference Ranges (U.S. Department of Health and Human Services ATP III Classifications) Desirable ?<200 mg/dL Borderline High ?200-239 mg/dL High Risk ?>240 mg/dL Triglyceride Reference Ranges (U.S. Department of Health and Human Services ATP III Classifications) Normal ? <150 mg/dL Borderline High ??150-199 mg/dL High ? 200-499 mg/dL Very High ?>500 mg/dL HDL Reference Ranges (U.S. Department of Health and Human Services ATP III Classifcations) Low ? <40 mg/dl (major risk factor for CHD) High ?>60 mg/dl ('negative' risk factor for CHD) LDL Reference Ranges (U.S. Department of Health and Human Services ATP III Classifcations) Optimal ?<100 mg/dL Near Optimal ? 100-129 mg/dL Borderline High ??130-159 mg/dL High ? 160-189 mg/dL Very High ?>189 mg/dL us Huber Grossman MD LAB BLOOD ORDERABLES Final Re sult [facility]
[address] [place] [address], * SCANNED - EYE EXAM (01/05/2019) Anatomical Region Laterality Modality Other Huber Grossman MD CHART REVIEW TABS Final Re sult * Hepatitis C Antibody (12/21/2018 10:57 AM EDT) Hepatitis C Ab Non-Reacti ve Non-Reacti ve 12/21/2018 7:17 PM EDT [facility] Blood Right upper arm structure / Unknown Venipuncture / Unknown 12/21/2018 10:57 AM EDT 12/21/2018 10:58 AM EDT Huber Grossman MD LAB BLOOD ORDERABLES Final Re sult [facility]
[address] [place] [address], from Last 3 Months or Most Recently Relevant to Health Maintenance Additional Health Concerns Infection Onset Date Last Indicated 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 09/08/2019 09/08/2019 Insurance MEDICARE A & B Member Subscriber Plan / Payer (Ef fective 2014-Present) Name:Mirtha Mayberry Member ID:[id number] Relation to Subscriber:Self Name:Mirtha Mayberry Subscriber ID:[id number] Payer ID:[id number] Group ID:Not on file Type:Not on file Address: [facility] [id number] [place] [id number] [facility] Advance Directives * CPR (Attempt to Resuscitate) (Latest Code Status on File) Date Activated Date Inactivated Comments 10/12/2019 8:31 PM 10/13/2019 3:10 AM Question Answer Comments Code Status (Patient has no pulse and is not breathing): CPR (Attempt to Resuscitate) Medical Interventions (Patie nt has pulse or is breathing): Full Level Of Support Discussed With: Patient * CPR (Attempt to Resuscitate) Date Activated Date Inactivated Comments 09/07/2019 3:02 AM 09/15/2019 7:08 PM Question Answer Comments Code Status (Patient has no pulse and is not breathing): CPR (Attempt to Resuscitate) Medical Interventions (Patie nt has pulse or is breathing): Full Care Teams Storm Window Installer Relationship Specialty Start Date End Date Dano Romero MD [address] [place] [address] PCP - General Internal Medicine 09/29/19
--- OUTSIDE RECORDS SUMMARY | 2024-08-02 15:08 | XMS_ITS | Encounter Summary ---
[facility] Address [address] [place] [address] Care Team Providers Care Pipe Line Gauger Name Role Phone Dano Romero MD Primary Care Provider [phone] Reason for Visit * Reason Comments Follow-up FOLLOW UP ON ABDOMIN AL PAIN Encounter Details Date Type Department Care Team (Late st Contact Info) Description 11/19/2021 2:15 PM EDT Office Visit [facility] [address] [phone] Jacob Nicholas MD [address] [place] [address] Chronic abdominal pain (Primary Dx) Social History Tobacco Use Types Packs/Day Years Used Date Smoking Tobacco: Former Cigarettes 1 6 1 994 - 2000 Smokeless Tobacco: Never Tobacco Cessation:Counseling Given: No [...] Progress Notes * Jacob Nicholas MD - 11/19/2021 2:15 PM EDT [facility] Gastroenterology Referring Provider: No ref. provider found Chief complaint f/u You have chosen to receive care through a telehealth visit. Do you consent to use a video/audio connection for your medical care today? Yes History of present illness: Mirtha Mayberry is a 71 y.o. female who presents as a f/u to GI clinic via telemedicine. Past history of constipation and jimenez's esophagus. H/o intraabdominal hematoma. Feels well. No gib loss. No fever. Uses intermittent miralax. Allergies: Bactrim [sulfamethoxazole-trimethoprim], Codeine, Contrast dye, Penicillins, Sulfa antibiotics, andCiprofloxacin Scheduled Meds: Infusions: No current facility-administered medications for this visit. PRN Meds: Home Meds: (Not in a hospital admission) ROS: Review of Systems A complete 12 point ros was asked and is negative except for that mentioned above. In particular: No fever No rash No increased arthralgias No worsening edema No cough No dyspnea No chest pain All other systems reviewed and are negative. PAST MED HX: Pt has a past medical history of Anxiety, Arthritis, Atrial fibrillation (HCC), Cataract, Cellulitis, COPD (chronic obstructive pulmonary disease) (HCC), Depression, Diabetes mellitus (HCC), Disease of thyroid gland, GERD (gastroesophageal reflux disease), HSP (Henoch Schonlein purpura) (HCC), Hyperlipidemia, Hypertension, Sleep apnea, and Vasculitis (HCC). PAST SURG HX: Pt has a past surgical history that includes Oophorectomy (Bilateral, 1989); Cataractextraction (Left, 2018); and Hysterectomy (1989). FAM HX: family history includes Alzheimer's disease in her mother and paternal aunt; Heart failure in her father and paternal grandfather; Stroke in her mother. SOC HX: Pt reports that she quit smoking about 22 years ago. Her smoking use included cigarettes. She has a 6.00 pack-year smoking history. She has never used smokeless tobacco. She reports that she does not drink alcohol and does not use drugs. There were no vitals taken for this visit. Physical Exam Wt Readings from Last 3 Encounters: 10/12/19 130 kg (286 lb) 09/29/19 130 kg (286 lb) 09/15/19 (!) 142 kg (312 lb 12.8 oz) ,body mass index is unknown because there is no height or weight on file. Telephone visit Results Review: I reviewed the patient's new clinical results. Lab Results Component Value Date WBC 16.17 (H) 10/12/2019 HGB 11.3 (L) 10/13/2019 HCT 34.8 10/13/2019 MCV 92.5 10/12/2019 PLT 215 10/12/2019 Lab Results Component Value Date GLUCOSE 199 (H) 10/12/2019 BUN 20 10/12/2019 CREATININE 1.31 (H) 10/12/2019 EGFRIFNONA 40 (L) 10/12/2019 BCR 15.3 10/12/2019 CO2 26.0 10/12/2019 CALCIUM 9.5 10/12/2019 ALBUMIN 3.00 (L) 10/12/2019 AST 16 10/12/2019 ALT 23 10/12/2019 ASSESSMENTS/PLANS 1.) COm2 jimenez's esophagus Continue omeprazole, lowest effective dose Last egd: 2017, repeat egd sureillance 2.) h/o intraabdominal hematoma with anticoagulation use Source: kidney Follow up with pcp 3.) constipation Continue miralax 4.) Reduncant and fixed sigmoid with difficulty passing colon Consider gastroscope passage in sigmoid. 1 hour time slot colon. 16 minutes devoted to telephone visit I discussed the patients findings and my recommendations with the patient Jacob Nicholas MD 11/19/21 14:48 EDT documented in this encounter Plan of Treatment Not on file documented as of this encounter Visit Diagnoses Diagnosis Chronic abdominal pain- Primary Abdominal pain, unspecified site documented in this encounter Additional Health Concerns Infection Onset Date Last Indicated Resolved Time 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 09/08/2019 09/08/2019 documented as of this encounter Care Teams Pipe Line Gauger Relationship Specialty Start Date End Date Dano Romero MD [address] [place] [address] PCP - General Internal Medicine 09/29/19 documented as of this encounter
--- OUTSIDE RECORDS SUMMARY | 2024-08-02 15:08 | XMS_ITS ---
Author Organization [facility] Address [address] [facility] [address] [place] [address] Care Team Providers Care Housecleaner Floor Name Role Phone Heladio Palm Primary Care Provider [phone] REASON FOR VISIT Refills Medications Medication SIG (Take, Route, Fr equency, Duration) Notes Start Date End Date Status atorvastatin 40 mg 1 tab(s) orally once a day for 90 days Active Encounters Encounter Location Date Provider Diagnosis [facility] [address] [facility] [address] [place] [address] 05/06/2024 Heladio Palm Plan Of Treatment Medication Medication Name Sig Start Date Stop Date Notes atorvastatin 40 mg 1 tab(s) orally once a day for 90 days Progress Notes * Karo VELAZQUEZOB:[birth year] (74 yo F)Acc No.[id number]:05/06/2024 Patient:?Mirtha VELAZQUEZ :1950???Age:74 Y???Sex:Female Address:[address] [place] [address], [id number] * Refills? Refill atorvastatin tablet, 40 mg, orally, 90, 1 tab(s), once a day, 90 days, Refills=2 * true * Date:? Generated for Printi ng/Fadyllang/eTransmitting on:?08/02/2024 03:07 PM EST
--- OUTSIDE RECORDS SUMMARY | 2024-08-02 15:08 | XMS_ITS | Encounter Summary ---
Author Organization [facility] Address [address] [place] [address] Care Team Providers Care Conveyor Feeder Offbearer Name Role Phone Dano Romero MD Primary Care Provider [phone] Reason for Referral * Diagnostic Imaging (Routine) - Closed Specialty Diagnoses / Procedures Referred By Esequiel hall Referred To Contact Radiology Diagnoses Visit for screening mammogram Procedures Mammo Screening Digital Tomosynthesis Bilateral With Dano Mckeon MD [address] [place] [address] Phone: tel: fax: Referral ID Status Reason Start Date Expiration Date Visits Re quested Visits Authorized [id number] Closed 06/25/2021 06/25/2022 1 1 Reason for Visit * Diagnostic Imaging (Routine) - Closed Specialty Diagnoses / Procedures Referred By Esequiel hall Referred To Contact Radiology Diagnoses Visit for screening mammogram Procedures Mammo Screening Digital Tomosynthesis Bilateral With Dano Mckeon MD [address] [place] [id number] Phone: tel: fax: Referral ID Status Reason Start Date Expiration Date Visits Re quested Visits Authorized [id number] Closed 06/25/2021 06/25/2022 1 1 Encounter Details Date Type Department Care Team (Latest Contact Info) Description 11/28/2021 9:58 AM EDT - 11/28/2021 11:59 PM EDT Hospital Encounter [facility] [address] [place] [address] Dano Romero MD [address] [place] [address] Visit for screening mammogram Discharge Disposition: Home or Self Care Social History Tobacco Use Types Packs/Day Years [...] on file documented as of this encounter Medications at Time of Discharge loratadine (CLARITIN) 10 MG tablet Take 10 mg by mouth Daily. Ascorbic Acid (Vitamin C) 250 MG chewable tablet 09/18/2019 atorvastatin (LIPITOR) 40 MG tablet 09/18/2019 Biotin 42102 MCG tablet 09/18/2020 carvedilol (COREG) 25 MG tablet 11/05/2021 Cholecalciferol (Vitamin D3) 25 MCG (1000 UT) capsule 09/18/2019 Cholecalciferol (VITAMIN D3) 5000 units capsule capsule Take 5,000 Units by mouth Daily. Cyanocobalamin (B-12) 1000 MCG capsule 12/17/2020 gabapentin (NEURONTIN) 100 MG capsule 09/18/2020 glipizide (GLUCOTROL) 5 MG tablet 11/05/2021 levothyroxine (Levo-T) 100 MCG tablet 09/18/2019 losartan (COZAAR) 25 MG tablet 11/05/2021 Magnesium 100 MG tablet omeprazole (priLOSEC) 20 MG capsule 09/18/2019 Zinc 15 MG capsule documented as of this encounter Plan of Treatment Not on file documented as of this encounter Procedures Procedure Name Priority Date/Time Associated Diagnosis Comments MAMMO SCREENING DIGITAL TOMOSYNTHESIS BILATERAL W CAD Routine 11/28/2021 10:35 AM EDT Visit for screening mammogram documented in this encounter Results * Mammo Screening Digital Tomosynthesis Bilateral With [...] Romero MD IMG MAMMOGRAPHY ORDERABLES Final Result documented in this encounter Visit Diagnoses Diagnosis Visit for screening mammogram documented in this encounter Additional Health Concerns Infection Onset Date Last Indicated Resolved Time 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 09/08/2019 09/08/2019 documented as of this encounter Care Teams Conveyor Feeder Offbearer Relationship Specialty Start Date End Date Dano Romero MD [address] [place] [address] PCP - General Internal Medicine 09/29/19 documented as of this encounter
--- OUTSIDE RECORDS SUMMARY | 2024-08-02 15:08 | XMS_ITS | Encounter Summary ---
Author Organization [facility] Address [address] [place] [address] Care Team Providers Care Straddle Carrier Operator Name Role Phone Dano Romero MD Primary Care Provider [phone] Encounter Details Date Type Department Care Team (Late st Contact Info) Description 09/30/2019 Telephone [facility] [address] [place] [id number] Huber Grossman MD Social History Tobacco Use Types Packs/Day Years [...] as of this encounter Miscellaneous Notes * Telephone Encounter - Sammie Puentes MA - 09/30/2019 4:08 PM EST Please advise * Telephone Encounter - Martha Oviedo RegSched Rep - 09/30/2019 10:53 AM EST Patient states that she was in the hospital and they took her off of Olmarsartin and Diltazalem, but she is now in [place] and needs an order sent to them that she needs to take these meds. 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 09/08/2019 09/08/2019 documented as of this encounter Care Teams Straddle Carrier Operator Relationship Specialty Start Date End Date Dano Romero MD [address] [place] [address] PCP - General Internal Medicine 09/29/19 documented as of this encounter
--- OUTSIDE RECORDS SUMMARY | 2024-08-02 15:08 | XMS_ITS | Encounter Summary ---
[facility] Address [address] [place] [address] Care Team Providers Care Consulting Sales Manager Name Role Phone Dano Romero MD Primary Care Provider [phone] Reason for Visit * Reason Comments Flank Pain Encounter Details Date Type Department Care Team (Late st Contact Info) Description 10/12/2019 5:00 PM EST - 10/13/2019 1:00 AM EST Emergency [facility] [address] [place] [id number] Rob Hardy DO [address] [facility] [place] [address] Retroperitoneal hemorrhage (Primary Dx); Acute left flank pain Discharge Disposition: Short Term Hospital (DC - External) Social History Tobacco Use Types Packs/Day Years [...] Mass Index 53.16 10/12/2019 5:05 PM EST documented in this encounter Medications at Time of Discharge loratadine (CLARITIN) 10 MG tablet Take 10 mg by mouth Daily. Ascorbic Acid (Vitamin C) 250 MG chewable tablet 0 atorvastatin (LIPITOR) 40 MG tablet 0 Cholecalciferol (Vitamin D3) 25 MCG (1000 UT) capsule 0 Cholecalciferol (VITAMIN D3) 5000 units capsule capsule Take 5,000 Units by mouth Daily. levothyroxine (Levo-T) 100 MCG tablet 0 omeprazole (priLOSEC) 20 MG capsule 0 Ergocalciferol (VITAMIN D2 PO) Take 1.25 mg by mouth 1 (One) Time Per Week. prednisoLONE acetate (PRED FORTE) 1 % ophthalmic suspension 1 drop. 22/10 predniSONE (DELTASONE) 10 MG tablet Take 60 mg by mouth Daily. rivaroxaban (XARELTO) 20 MG tablet Take 20 mg by mouth Daily. insulin detemir (LEVEMIR) 100 UNIT/ML injection Inject 17 Units under the skin into the appropriate area as directed Every 12 (Twelve) Hours for 30 days. 10.2 mL 0 pantoprazole (PROTONIX) 40 MG EC tablet Take 1 tablet by mouth Daily for 28 days. 28 tablet 0 aspirin 81 MG EC tablet Take 81 mg by mouth Daily. azelastine (ASTELIN) 0.1 % nasal spray 2 sprays into the nostril(s) as directed by provider Daily. Use in each nostril as directed 30 mL 5 9 022 budesonide-formoterol (SYMBICORT) 160-4.5 MCG/ACT inhaler Inhale 2 puffs 2 (Two) Times a Day. 3 inhaler 3 9 022 ertapenem (INVanz) 1 g injection Inject into the appropriate muscle as directed by prescriber. fluticasone (FLONASE) 50 MCG/ACT nasal spray 2 sprays into the nostril(s) as directed by provider Daily. 3 bottle 1 8 furosemide (LASIX) 40 MG tabletIndications:Essent ial hypertension,Edema, peripheral TAKE 1 TABLET BY MOUTH EVERY DAY 30 tablet 5 9 insulin lispro (humaLOG) 100 UNIT/ML injection Inject 5 Units under the skin 3 Times a Day Before Meals AND 0-14 Units 4 Times a Day Before Meals & at Bedtime. 20 mL 0 022 levalbuterol (XOPENEX HFA) 45 MCG/ACT inhaler Inhale 1-2 puffs Every 4 (Four) Hours As Needed for Wheezing. levothyroxine (SYNTHROID) 75 MCG tablet Take 1 tablet by mouth Daily. 30 tablet 2 9 022 potassium chloride (MICRO-K) 10 MEQ CR capsuleIndications:Essen tial hypertension,Edema, peripheral TAKE 1 CAPSULE BY MOUTH EVERY DAY 30 capsule 5 9 predniSONE (DELTASONE) 5 MG tablet take 40mg qam X 1 week, then 20mg qam X 1 week, then 10 mg qam X 2 weeks w/f/u in clinic before end of taper. 0 022 rosuvastatin (CRESTOR) 10 MG tabletIndications:Famili al hypercholesterolemia Take 1 tablet by mouth Every Night. 90 tablet 1 9 022 venlafaxine XR (EFFEXOR-XR) 75 MG 24 hr capsule Take 1 capsule by mouth Daily. 90 capsule 1 9 022 documented as of this encounter Progress Notes * Hugh Arriaga DO - 10/12/2019 9:03 PM EST I was initially called by Dr. Hardy to accept the patient to the ICU for close monitoring secondaryto a retroperitoneal hematoma in the setting of anticoagulation on Xarelto. Initially I agreed to accept the patient, with the plan to watch very closely in the ICU transfuse as needed with possible i nterventional angiography and embolization if needed. I called discussed the case with Dr. Almanzar who was interventional on-call and he informed me that unfortunately he would be unable to do credentialing to perform peripheral interventional procedures for the patient and that he was only sales operations lead for neuro interventional. Therefore he recommended that we transfer the patient to another facility where interventional radiology would be available. I called Dr. Hardy and informed him that given the fact that do not have interventional backup tonight do not feel to be safe to admit the patient [facility] and recommended that we transfer the patient to another facility. He informed me they plan to call the facilities and was okay with this. Contacted the residential housekeeper is also informed that we do not plan to bring the patient up to the ICU given these new findings. Jered Arriaga DO Pulmonary and Critical Care documented in this encounter ED Notes * Rob Hardy DO - 10/12/2019 5:32 PM ESTAssociated Order(s): Critical Care Joana Mayberry is a 69 y.o. female who presents to the ED with complaints of left sided flank pain radiating to her abdomen since yesterday, worsening today. The patient's daughter reports that thepatient has been at [facility] for rehabilitation s/p respiratory failure. The patient reports that she has been doing well in physical therapy and was improving overall till about 6 days ago. She reports that 6 days ago she developed urinary frequency, urgency, and dysuria. Two days later, she developed hematuria and a fever of 101 degrees. The patient states that her fever has resolved. However, since yesterday she has had flank pain, nausea, decreased urine, and diaphoresis. Add itionally, the patient endorses chronic constipation. Her last bowel movement was 2 days ago. She denies any vomiting, cough, or wheezing. She denies any recent trauma or injuries. Her daughter reports that the patient was started on Doxycycline 4 days ago, however, she was switched to Z-Dennis after 2 doses. Yesterday the patient was taken off Z-Dennis and switched to Invanz IM. Of note, the patient is also on Xarelto and ASA. She uses 2L NC oxygen during the day and BiPAP at night. The patient has a history of COPD, atrial fibrillation, HTN, HLD, insulin dependent DM, GERD, arthritis, anxiety, and sleep apnea. Her past surgical history includes a hysterectomy and oophorectomy. Her PCP is Dr. Lucio luna. There are no other acute complaints at this time. History provided by: Patient and relative Flank Pain Pain location: L flank Pain radiates to: LLQ Pain severity: Moderate Onset quality: Sudden Duration: 1 day Timing: Constant Progression: Worsening Chronicity: New Relieved by: Nothing Worsened by: Nothing Ineffective treatments: Doxycycline, Z-Dennis, and Invanz. Associated symptoms: constipation (chronic), dysuria, fever (resolved), hematuria and nausea Associated symptoms: no cough and no vomiting Risk factors: obesity Review of Systems Constitutional: Positive for diaphoresis and fever (resolved). Respiratory: Negative for cough and wheezing. Gastrointestinal: Positive for constipation (chronic) and nausea. Negative for vomiting. Genitourinary: Positive for decreased urine volume, dysuria, frequency, hematuria and urgency. Flank pain: left flank. All other systems reviewed and are negative. Past 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: Diagnosis Date ??? Anxiety ??? Arthritis ??? Atrial fibrillation (CMS/HCC) ??? Cataract ??? Cellulitis BLE ??? COPD (chronic obstructive pulmonary disease) (CMS/HCC) ??? Depression ??? Diabetes mellitus (CMS/HCC) ??? Disease of thyroid gland ??? GERD (gastroesophageal reflux disease) ??? HSP (Henoch Schonlein purpura) (CMS/HCC) ??? Hyperlipidemia ??? Hypertension ??? Sleep apnea Home Cpap use ??? Vasculitis (CMS/HCC) Allergies Allergen Reactions ??? Bactrim [Sulfamethoxazole-Trimethoprim] Paresthesia Recurrent burn of skin on hip when taking med, hemorrhagic circular skin reaction ??? Codeine Anaphylaxis ??? Contrast Dye Anaphylaxis ??? Penicillins Anaphylaxis Has tolerated cephalexin and ceftriaxone 09/2019 ??? Sulfa Antibiotics Other (See Comments) Numb tongue, dizzy, hemorrhagic circular skin reaction ??? Ciprofloxacin Unknown (See Comments) Past Surgical History: Procedure Laterality Date ??? CATARACT EXTRACTION Left 2018 ??? HYSTERECTOMY 1989 ??? OOPHORECTOMY Bilateral 1989 Family History Problem Relation Age of Onset [...] Last attempt to quit: 2000 Years since quittin.1 ??? Smokeless tobacco: Never Used ??? Tobacco comment: Quit 20 years ago Substance and Sexual Activity ??? Alcohol use: No ??? Drug use: No ??? Sexual activity: Defer Objective Physical Exam Constitutional: She is oriented to person, place, and time. She appears well- developed and well-nourished. Exam is limited due to her position and inability to lay supine. The patient is laying in a left lateral recumbent position. HENT: Head: Normocephalic and atraumatic. Nose: Nose normal. Eyes: Conjunctivae are normal. No scleral icterus. Neck: Normal range of motion. Neck supple. Cardiovascular: Normal rate and regular rhythm. No murmur heard. Heart sound distant secondary to body habitus and her position in the bed. Pulmonary/Chest: Effort normal and breath sounds normal. No respiratory distress. Breath sounds normal. Abdominal: Soft. She exhibits no distension. There is generalized tenderness. Diffuse tenderness to palpation. Musculoskeletal: Normal range of motion. She exhibits tenderness. She exhibits no deformity. Right sided lower back musculature tenderness to palpation. Neurological: She is alert and oriented to person, place, and time. Skin: Skin is warm. She is diaphoretic. Mildly diaphoretic. Psychiatric: She has a normal mood and affect. Her behavior is normal. Nursing note and vitals reviewed. Critical Care Performed by: Rob Hardy DO Authorized by: Rob Hardy DO Critical care provider statement: Critical care time (minutes): 80 Critical care time was exclusive of: Separately billable procedures and treating other patients Critical care was necessary to treat or prevent imminent or life-threatening deterioration of the following conditions: Circulatory failure and renal failure Critical care was time spent personally by me on the following activities: Development of treatmentplan with patient or surrogate, discussions with consultants, examination of patient, obtaining history from patient or surrogate, evaluation of patient's response to treatment, ordering and performin g treatments and interventions, ordering and review of laboratory studies, ordering and review of radiographic studies, pulse oximetry, re-evaluation of patient's condition and review of old charts ED Course ED Course as of Oct 13 1737 Wed Oct 12, 20191956 Paged urology. -CP [BLIND CLEANER] 2001 Discussed the case with Dr. Ace, urologist. He recommends we reverse her anticoagulation. Wewill monitor the patient's H&H along with her vital signs. If intervention is warranted, then interventional radiologist would be most appropriate. -CP [BLIND CLEANER] 2009 Paged reactor fueling supervisor. -CP [BLIND CLEANER] 2012 Discussed the case in detail with Dr. Arriaga, reactor fueling supervisor, who agrees to admit. -CP [BLIND CLEANER] 2100 Hemoglobin: 12.5 [CP] 2106 Discussed the case with ICU, Dr. Arriaga. He reviewed the case [CP] 2211 Hematocrit: 36.5 [CP] ED Course User Index [CP] Rob Hardy DO [BLIND CLEANER] Suad Hernnadez Recent Results (from the past 24 hour(s)) Comprehensive Metabolic Panel Collection Time: 10/12/19 5:51 PM Result Value Ref Range Glucose 199 (H) 65 - 99 mg/dL BUN 20 8 - 23 mg/dL Creatinine 1.31 (H) 0.57 - 1.00 mg/dL Sodium 135 (L) 136 - 145 mmol/L Potassium 4.2 3.5 - 5.2 mmol/L Chloride 94 (L) 98 - 107 mmol/L CO2 26.0 22.0 - 29.0 mmol/L Calcium 9.5 8.6 - 10.5 mg/dL Total Protein 7.1 6.0 - 8.5 g/dL Albumin 3.00 (L) 3.50 - 5.20 g/dL ALT (SGPT) 23 1 - 33 U/L AST (SGOT) 16 1 - 32 U/L Alkaline Phosphatase 89 39 - 117 U/L Total Bilirubin 0.5 0.2 - 1.2 mg/dL eGFR Non Amer 40 (L) >60 mL/min/1.73 Globulin 4.1 gm/dL A/G Ratio 0.7 g/dL BUN/Creatinine Ratio 15.3 7.0 - 25.0 Anion Gap 15.0 5.0 - 15.0 mmol/L Lipase Collection Time: 10/12/19 5:51 PM Result Value Ref Range Lipase 12 (L) 13 - 60 U/L Light Blue Top Collection Time: 10/12/19 5:51 PM Result Value Ref Range Extra Tube hold for add-on Green Top (Gel) Collection Time: 10/12/19 5:51 PM Result Value Ref Range Extra Tube Hold for add-ons. Lavender Top Collection Time: 10/12/19 5:51 PM Result Value Ref Range Extra Tube hold for add-on Gold Top - SST Collection Time: 10/12/19 5:51 PM Result Value Ref Range Extra Tube Hold for add-ons. CBC Auto Differential Collection Time: 10/12/19 5:51 PM Result Value Ref Range WBC 16.17 (H) 3.40 - 10.80 10*3/mm3 RBC 4.26 3.77 - 5.28 10*6/mm3 Hemoglobin 12.5 12.0 - 15.9 g/dL Hematocrit 39.4 34.0 - 46.6 % MCV 92.5 79.0 - 97.0 fL MCH 29.3 26.6 - 33.0 pg MCHC 31.7 31.5 - 35.7 g/dL RDW 14.4 12.3 - 15.4 % RDW-SD 48.6 37.0 - 54.0 fl MPV 9.4 6.0 - 12.0 fL Platelets 215 140 - 450 10*3/mm3 Neutrophil % 83.7 (H) 42.7 - 76.0 % Lymphocyte % 9.4 (L) 19.6 - 45.3 % Monocyte % 5.3 5.0 - 12.0 % Eosinophil % 0.1 (L) 0.3 - 6.2 % Basophil % 0.2 0.0 - 1.5 % Immature Grans % 1.3 (H) 0.0 - 0.5 % Neutrophils, Absolute 13.54 (H) 1.70 - 7.00 10*3/mm3 Lymphocytes, Absolute 1.52 0.70 - 3.10 10*3/mm3 Monocytes, Absolute 0.85 0.10 - 0.90 10*3/mm3 Eosinophils, Absolute 0.01 0.00 - 0.40 10*3/mm3 Basophils, Absolute 0.04 0.00 - 0.20 10*3/mm3 Immature Grans, Absolute 0.21 (H) 0.00 - 0.05 10*3/mm3 nRBC 0.0 0.0 - 0.2 /100 WBC Hemoglobin & Hematocrit, Blood Collection Time: 10/12/19 9:35 PM Result Value Ref Range Hemoglobin 11.7 (L) 12.0 - 15.9 g/dL Hematocrit 36.5 34.0 - 46.6 % Type & Screen Collection Time: 10/13/19 12:07 AM Result Value Ref Range ABO Type A RH type Positive Antibody Screen Negative T&S Expiration Date 10/16/2019 11:59:59 PM Hemoglobin & Hematocrit, Blood Collection Time: 10/13/19 12:07 AM Result Value Ref Range Hemoglobin 11.3 (L) 12.0 - 15.9 g/dL Hematocrit 34.8 34.0 - 46.6 % Urinalysis With Microscopic If Indicated (No Culture) - Urine, Clean Catch Collection Time: 10/13/19 12:08 AM Result Value Ref Range Color, UA Dark Yellow (A) Yellow, Straw Appearance, UA Turbid (A) Clear pH, UA <=5.0 5.0 - 8.0 Specific [place], UA 1.038 (H) 1.001 - 1.030 Glucose, UA 100 mg/dL (Trace) (A) Negative Ketones, UA 15 mg/dL (1+) (A) Negative Bilirubin, UA Moderate (2+) (A) Negative Blood, UA Large (3+) (A) Negative Protein, UA >=300 mg/dL (3+) (A) Negative Leuk Esterase, UA Small (1+) (A) Negative Nitrite, UA Negative Negative Urobilinogen, UA 1.0 E.U./dL 0.2 - 1.0 E.U./dL Urinalysis, Microscopic Only - Urine, Clean Catch Collection Time: 10/13/19 12:08 AM Result Value Ref Range RBC, UA Too Numerous to Count (A) None Seen, 0-2 /HPF WBC, UA 31-50 (A) None Seen, 0-2 /HPF Bacteria, UA None Seen None Seen, Trace /HPF Squamous Epithelial Cells, UA 3-6 (A) None Seen, 0-2 /HPF Methodology Manual Light Microscopy Note: In addition to lab results from this visit, the labs listed above may include labs taken at another facility or during a different encounter within the last 24 hours. Please correlate lab timeswith ED admission and discharge times for further clarification of the services performed during this visit. CT Angiogram Abdomen Pelvis Final Result 1. CTA imaging showing active arterial bleeding from the left kidney into a very large contained perinephric hematoma. Upper renal parenchyma appears disrupted along the capsular margin. 2. The perinephric hematoma is slightly larger than on the prior study. 3. Decreased delayed parenchymal enhancement a left kidney likely due to increased parenchymal pressure from extrinsic hematoma. 4. Flattening of the renal veins and upper IVC and a reflect hypovolemic state. NOTIFICATION: Critical Value/emergent results were telephoned by me to the ED physician, Dr. Tejeda, at 00:02 hours on 10/13/2019. Signer Name: Gabino Almaguer MD Signed: 10/13/2019 12:03 AM Workstation Name: [facility] CT Abdomen Pelvis Without Contrast Final Result 1. There is a large retroperitoneal hemorrhage centered in the subcapsular left renal space with hemorrhage tracking into the perirenal and pararenal spaces on the left. Some hemorrhage also tracks along the left anterior psoas muscle, into the left paracolic gutter, to the root of the mesentery, and up adjacent to the spleen. The hemorrhage appears relatively recent/acute given the hyperdensity and measures about 10.8 x 8.2 x 14 cm in dimension. It results in considerable distortion of the underlying left kidney. Some possible considerations for etiology include hemorrhage from a underlying renal parenchymal mass or vascular malformation. There is no trauma history. Please exclude clinical evidence of excess anticoagulation. Study is limited by the lack of IV contrast media. 2. Postcholecystectomy and hysterectomy. Signer Name: Ivy Tsai MD Signed: 10/12/2019 8:04 PM Workstation Name: [facility] CT Chest Without Contrast Final Result Diminished left-sided lung volumes with left basilar atelectasis. No primary pulmonary pathology. Markedly abnormal left kidney with extensive hemorrhage and edema within the left perinephric spacewith expansion. See separate CT report abdomen pelvis for details. Signer Name: Irina Dewitt MD Signed: 10/12/2019 8:02 PM Workstation Name: [facility] Vitals: 10/13/19 0044 10/13/19 0045 10/13/19 0046 10/13/19 0049 BP: 153/89 153/89 Patient Position: Sitting Pulse: 113 117 116 Resp: 16 Temp: SpO2: 93% 93% 92% Weight: Height: Medications HYDROmorphone (DILAUDID) injection 0.5 mg (0.5 mg Intravenous Given 10/12/19 183) ondansetron (ZOFRAN) injection 4 mg (4 mg Intravenous Given 10/12/19 181) sodium chloride 0.9 % bolus 1,000 mL (0 mL Intravenous Stopped 10/12/192015) prothrombin complex conc human (KCentra) IV solution 5,000 Units (5,000 Units Intravenous Given 10/12/19 204) fentaNYL citrate (PF) (SUBLIMAZE) injection 25 mcg (25 mcg Intravenous Given 10/13/19 0042) diphenhydrAMINE (BENADRYL) injection 50 mg (50 mg Intravenous Given 10/12/19 2244) iopamidol (ISOVUE-370) 76 % injection 150 mL (150 mL Intravenous Given 10/12/19 2328) ECG/EMG Results (last 24 hours) No results found for the last 24 hours. No orders to display MDM Final diagnoses: Retroperitoneal hemorrhage Acute left flank pain Documentation assistance provided by avtar Hernandez. Information recorded by the scribe was done at my direction and has been verified and validated by me. Suad Hernandez 10/12/192015 Rob Hardy DO 10/13/19 2128 documented in this encounter Plan of Treatment Not on file documented as of this encounter Procedures Procedure Name Priority Date/Time Associated Diagnosis Comments URINALYSIS, MICROSCOPIC ONLY STAT 10/13/2019 12:08 AM EST URINALYSIS W/ MICROSCOPIC IF INDICATED (NO CULTURE) STAT 10/13/2019 12:08 AM EST HEMOGLOBIN AND HEMATOCRIT, BLOOD STAT 10/13/2019 12:07 AM EST TYPE AND SCREEN STAT 10/13/2019 12:[address] ANGIOGRAM ABDOMEN PELVIS STAT 10/12/2019 11:33 PM EST HEMOGLOBIN AND HEMATOCRIT, BLOOD STAT 10/12/2019 9:[address] CHEST WO CONTRAST DIAGNOSTIC STAT 10/12/2019 7:[address] ABDOMEN PELVIS WO CONTRAST STAT 10/12/2019 7:21 PM EST GOLD TOP - SST STAT 10/12/2019 5:51 PM EST DK GREEN TOP STAT 10/12/2019 5:51 PM EST CBC WITH AUTO DIFFERENTIAL STAT 10/12/2019 5:51 PM EST LAVENDER TOP STAT 10/12/2019 5:51 PM EST LIGHT BLUE TOP STAT 10/12/2019 5:51 PM EST RAINBOW DRAW STAT 10/12/2019 5:51 PM EST CBC AND DIFFERENTIAL STAT 10/12/2019 5:51 PM EST LIPASE STAT 10/12/2019 5:51 PM EST COMPREHENSIVE METABOLIC PANEL STAT 10/12/2019 5:51 PM EST CA CRITICAL CARE ILL/INJURED PATIENT ADDL 30 MIN Routine 10/12/2019 5:32 PM EST CA CRITICAL CARE ILL/INJURED PATIENT INIT 30-74 MIN Routine 10/12/2019 5:32 PM EST documented in this encounter Results * (ABNORMAL) Urinalysis, Microscopic Only - Urine, Clean Catch (10/13/2019 12:08 AM EST) RBC, UA Too Numerous to Count(A) None Seen, 0-2 /HPF 10/13/2019 12:41 AM EST [facility] WBC, UA 31-50(A) None Seen, 0-2 /HPF 10/13/2019 12:41 AM [facility] Bacteria, UA None Seen None Seen, Trace /HPF 10/13/2019 12:41 AM [facility] Squamous Epithelial Cells, UA 3-6(A) None Seen, 0-2 /HPF 10/13/2019 12:41 AM [facility] Methodology Manual Light Microscopy 10/13/2019 12:41 AM [facility] Urine Urine specimen collection, clean catch / Unknown Collection / Unknown 10/13/2019 12:08 AM EST 10/13/2019 12:28 AM EST us Rob Hardy DO URINE ORDERABLES Final Result [facility]
[address] [place] [address], * (ABNORMAL) Urinalysis With Microscopic If Indicated (No Culture) - Urine, Clean Catch (10/13/2019 12:08 AM EST) Color, UA Dark Yellow(A) Yellow, Straw 10/13/2019 12:39 AM [facility] Appearance, UA Turbid(A) Clear 10/13/2019 12:39 AM [facility] pH, UA <=5.0 5.0 - 8.0 10/13/2019 12:39 AM EST [facility] Specific [place], UA 1.038(H) 1.001 - 1.030 10/13/2019 12:39 AM [facility] Glucose, UA 100 mg/dL (Trace)(A) Negative 10/13/2019 12:39 AM [facility] Ketones, UA 15 mg/dL (1+)(A) Negative 10/13/2019 12:39 AM [facility] Bilirubin, UA Moderate (2+)(A) Negative 10/13/2019 12:39 AM [facility] Blood, UA Large (3+)(A) Negative 10/13/2019 12:39 AM [facility] Protein, UA >=300 mg/dL (3+)(A) Negative 10/13/2019 12:39 AM [facility] Leuk Esterase, UA Small (1+)(A) Negative 10/13/2019 12:39 AM [facility] Nitrite, UA Negative Negative 10/13/2019 12:39 AM [facility] Urobilinogen, UA 1.0 E.U./dL 0.2 - 1.0 E.U./dL 10/13/2019 12:39 AM [facility] Urine Urine specimen collection, clean catch / Unknown Collection / Unknown 10/13/2019 12:08 AM EST 10/13/2019 12:28 AM EST Rob Hardy DO URINE ORDERABLES Final Result [facility]
[address] [place] [address], * (ABNORMAL) Hemoglobin & Hematocrit, Blood (10/13/2019 12:07 AM EST) Hemoglobin 11.3(L) 12.0 - 15.9 g/dL 10/13/2019 12:28 AM [facility] Hematocrit 34.8 34.0 - 46.6 % 10/13/2019 12:28 AM [facility] Blood Line / Unknown 10/13/2019 12 :07 AM EST 10/13/2019 12:25 AM EST [facility] BLOOD ORDERABLES Final Resul t Performing Organization Address [facility] Co de Phone Number [facility]
[address] [place] [address], * Type & Screen (10/13/2019 12:07 AM EST) ABO Type A 10/13/2019 1:03 AM EST [facility] RH type Positive 10/13/2019 1:03 AM EST [facility] Antibody Screen Negative 10/13/2019 1:03 AM EST [facility] T&S Expiration Date 10/16/2019 11:59:59 PM 10/13/2019 1:03 AM EST [facility] Blood Line / Unknown 10/13/2019 12 :07 AM EST 10/13/2019 12:23 AM EST Rob Hardy DO BLOOD BANK TEST ORDERABLES Edite d Result - Final Performing Organization Address [facility] de Phone Number [facility]
[address] [place] [address], * CT Angiogram Abdomen Pelvis (10/12/2019 11:33 PM EST) Anatomical Region Laterality Modality Abdomen, Vascular, Pelvis N/A Comput ed Tomography 10/13/2019 12:0 3 AM EST Impressions 10/13/2019 12:03 AM EST 1. ??CTA imaging showing active arterial bleeding from the left kidney into a very large contained perinephric hematoma. Upper renal parenchyma appears disrupted along the capsular margin. 2. ??The perinephric hematoma is slightly larger than on the prior study. 3. ??Decreased delayed parenchymal enhancement a left kidney likely due to increased parenchymal pressure from extrinsic hematoma. 4. ??Flattening of the renal veins and upper IVC and a reflect hypovolemic state. NOTIFICATION: Critical Value/emergent results were telephoned by me to the ED physician, Dr. Faye hardy, at 00:02 hours on 10/13/2019. Signer Name: Gabino Almaguer MD Signed: 10/13/2019 12:03 AM Workstation Name: [id number]- [facility] 10/13/2019 12:03 AM EST CTA ABDOMEN/PELVIS, 10/12/2019 HISTORY: 69 year-old female in the ED with a large acute left perinephric hematoma seen on earlier CT examination. She is on anticoagulation medication. Assess for active arterial hemorrhage. TECHNIQUE: CT imaging of the abdomen and pelvis with IV contrast during arterial phase and delayed phase imaging. Radiation dose reduction techniques included automated exposure control. Radiation audit for CT and nuclear cardiology exams in the last 12 months: 2. VASCULAR AND RENAL FINDINGS: There is a large pericapsular hematoma surrounding the left kidney, mostly laterally. The upper pole parenchyma is disrupted with a nonenhancing wedge-shaped region measuring about 2.6 cm in width. On arterial phase imaging, there is active arterial extravasation from the lateral capsular margin of the kidney, interconnecting in multiple small tortuous channels with one or 2 foci of arterial contrast puddling. The findings indicate significant active arterial hemorrhage at the time of imaging. There is decreased parenchymal enhancement of the left kidney on delayed phase imaging, likely due to extrinsic compression and increased intraparenchymal pressure. The renal veins and upper IVC are flattened, concerning for hypovolemic state. Contralateral right kidney is normal. The perinephric hematoma is slightly larger than on the earlier study. ABDOMEN FINDINGS: Normal caliber abdominal aorta. Liver, pancreas and spleen are normal in appearance. Cholecystectomy. Small bowel and colon are normal in caliber and appearance. PELVIS FINDINGS: Hysterectomy. Urinary bladder and rectum are negative. Procedure Note Gabino Almaguer MD - 10/13/2019 CTA ABDOMEN/PELVIS, 10/12/2019 HISTORY: 69 year-old female in the ED with a large acute left perinephric hematomaseen on earlier CT examination. She is on anticoagulation medication.Assess for active arterial hemorrhage. TECHNIQUE: CT imaging of the abdomen and pelvis with IV contrast during arterialphase and delayed phase imaging. Radiation dose reduction techniquesincluded automated exposure control. Radiation audit for CT and nuclearcardiology exams in the last 12 months: 2. VASCULAR AND RENAL FINDINGS: There is a large pericapsular hematoma surrounding the left kidney, mostlylaterally. The upper pole parenchyma is disrupted with a nonenhancingwedge-shaped region measuring about 2.6 cm in width. On arterial phaseimaging, there is active arterial extravasation from the lateral capsular margin of the kidney,interconnecting in multiple small tortuous channels with one or 2 foci ofarterial contrast puddling. The findings indicate significant activearterial hemorrhage at the time of imaging. There is decreased parenchymal enhancement of the left kidney on delayedphase imaging, likely due to extrinsic compression and increasedintraparenchymal pressure. The renal veins and upper IVC are flattened,concerning for hypovolemic state. Contralateral right kidney is normal. The perinephric hematoma is slightlylarger than on the earlier study. ABDOMEN FINDINGS: Normal caliber abdominal aorta. Liver, pancreas and spleen are normal inappearance. Cholecystectomy. Small bowel and colon are normal in caliberand appearance. PELVIS FINDINGS: Hysterectomy. Urinary bladder and rectum are negative. IMPRESSION: 1. CTA imaging showing active arterial bleeding from the left kidney intoa very large contained perinephric hematoma. Upper renal parenchymaappears disrupted along the capsular margin. 2. The perinephric hematoma is slightly larger than on the prior study. 3. Decreased delayed parenchymal enhancement a left kidney likely due toincreased parenchymal pressure from extrinsic hematoma. 4. Flattening of the renal veins and upper IVC and a reflect hypovolemicstate. NOTIFICATION: Critical Value/emergent results were telephoned by me to theED physician, Dr. Faye hardy, at 00:02 hours on 10/13/2019. Signer Name: Gabino Almaguer MD Signed: 10/13/2019 12:03 AM Workstation Name: [email or web address]- [facility] Rob Hardy DO IMG CT ORDERABLES Final Result * (ABNORMAL) Hemoglobin & Hematocrit, Blood (10/12/2019 9:35 PM EST) Hemoglobin 11.7(L) 12.0 - 15.9 g/dL 10/12/2019 9:50 PM EST [facility] Hematocrit 36.5 34.0 - 46.6 % 10/12/2019 9:50 PM EST [facility] Blood Line / Unknown 10/12/2019 9: 35 PM EST 10/12/2019 9:40 PM EST us Rob Hardy DO LAB BLOOD ORDERABLES Final Resul t [facility]
[address] [place] [address], * CT Chest Without Contrast (10/12/2019 7:21 PM EST) Anatomical Region Laterality Modality Chest N/A Computed Tomogra phy 10/12/2019 8:02 PM EST Impressions 10/12/2019 8:02 PM EST Diminished left-sided lung volumes with left basilar atelectasis. No primary pulmonary pathology. Markedly abnormal left kidney with extensive hemorrhage and edema within the left perinephric space with expansion. See separate CT report abdomen pelvis for details. Signer Name: Irina Dewitt MD Signed: 10/12/2019 8:02 PM Workstation Name: [email or web address] Narrative 10/12/2019 8:[address] Chest WO INDICATION: Intercostal pain complains of left rib soreness TECHNIQUE: CT of the thorax without IV contrast. Coronal and sagittal reconstructions were obtained. ??Radiation dose reduction techniques included automated exposure control or exposure modulation based on body size. Count of known CT and cardiac nuc med studies performed in previous 12 months: 0. Patient was scanned lying on left side. COMPARISON: CT abdomen and pelvis 10/12/2019 FINDINGS: Left-sided lung volume loss with left basilar atelectasis. No focal airspace disease or consolidation. Right lung remains clear. Cardiomegaly without failure. Aorta and pulmonary vessels unremarkable except for mild atherosclerotic changes. Osseous structures and thoracic soft tissues unremarkable. The thoracic inlet appears normal. 2.5 cm calcific density in the left anterior shoulder may represent a large loose body. Markedly abnormal left kidney with extensive hemorrhage and edema within the left perinephric space highly concerning for acute hemorrhage possibly within an underlying renal neoplasm or vascular malformation. Please see separate CT report abdomen and pelvis for details. Procedure Note Luis Dewitt MD - 10/12/2019 CT Chest WO INDICATION: Intercostal pain complains of left rib soreness TECHNIQUE: CT of the thorax without IV contrast. Coronal and sagittal reconstructionswere obtained. Radiation dose reduction techniques included automatedexposure control or exposure modulation based on body size. Count of knownCT and cardiac nuc med studies performed in previous 12 months: 0. Patient was scanned lying on leftside. COMPARISON: CT abdomen and pelvis 10/12/2019 FINDINGS: Left-sided lung volume loss with left basilar atelectasis. No focalairspace disease or consolidation. Right lung remains clear. Cardiomegalywithout failure. Aorta and pulmonary vessels unremarkable except for mildatherosclerotic changes. Osseous structures and thoracic soft tissues unremarkable. The thoracic inletappears normal. 2.5 cm calcific density in the left anterior shoulder mayrepresent a large loose body. Markedly abnormal left kidney with extensive hemorrhage and edema withinthe left perinephric space highly concerning for acute hemorrhage possiblywithin an underlying renal neoplasm or vascular malformation. Please seeseparate CT report abdomen and pelvis for details. IMPRESSION: Diminished left-sided lung volumes with left basilar atelectasis. Noprimary pulmonary pathology. Markedly abnormal left kidney with extensive hemorrhage and edema withinthe left perinephric space with expansion. See separate CT report abdomenpelvis for details. Signer Name: Irina Dewitt MD Signed: 10/12/2019 8:02 PM Workstation Name: [id number] Rob Hardy DO IMG CT ORDERABLES Final Result * CT Abdomen Pelvis Without Contrast (10/12/2019 7:21 PM EST) Anatomical Region Laterality Modality Abdomen, Pelvis N/A Computed Tomogra phy 10/12/2019 8:04 PM EST Impressions 10/12/2019 8:04 PM EST 1. There is a large retroperitoneal hemorrhage centered in the subcapsular left renal space with hemorrhage tracking into the perirenal and pararenal spaces on the left. Some hemorrhage also tracks along the left anterior psoas muscle, into the left paracolic gutter, to the root of the mesentery, and up adjacent to the spleen. The hemorrhage appears relatively recent/acute given the hyperdensity and measures about 10.8 x 8.2 x 14 cm in dimension. It results in considerable distortion of the underlying left kidney. Some possible considerations for etiology include hemorrhage from a underlying renal parenchymal mass or vascular malformation. There is no trauma history. Please exclude clinical evidence of excess anticoagulation. Study is limited by the lack of IV contrast media. 2. Postcholecystectomy and hysterectomy. Signer Name: Ivy Tsai MD Signed: 10/12/2019 8:04 PM Workstation Name: ANGEL LUIS [facility] 10/12/2019 8:04 PM EST INDICATION: Hematuria and left flank pain radiates to the lower abdomen. History of hysterectomy and cholecystectomy. Current symptoms for 2 days. TECHNIQUE: CT of the abdomen and pelvis without contrast. Coronal and sagittal reconstructions were obtained. ??Radiation dose reduction techniques included automated exposure control or exposure modulation based on body size. Radiation audit for number of CT and nuclear cardiology exams performed in the last year: 0. ?? COMPARISON: There was a noncontrast chest CT 09/08/2019. That study partly includes the kidneys. FINDINGS: Lung bases: See separate CT chest dictation today Abdomen: The noncontrast liver is unremarkable. The patient has had a cholecystectomy. There is some fatty replacement of the pancreas. The spleen is unremarkable. The adrenal glands are unremarkable. There is a right mid to upper pole renal mass lesion is about 2.2 cm in dimension with Hounsfield units that could be a cyst. Its nonspecific. There is no right-sided hydronephrosis or intrarenal calculus. There is an abnormal appearance centered at the left kidney. There is a large amount of relatively acute appearing blood in the left subcapsular renal space. Additionally there is blood tracking into the perirenal space and anterior and posterior pararenal spaces on the left. Blood tracks up to the level of the spleen into the left paracolic gutter and also into the left posterolateral mesenteric region. Per Dr. ann the patient is currently stable. Blood tracks anterior to left psoas muscle. There is no hydronephrosis. No obstructing calculus is appreciated. The large amount of blood appears result in considerable distortion of the left renal parenchyma. The size of the hematomas difficult to measure but about 10.8 cm AP dimension by 8.2 cm mL dimension by 14 cm in length. On review of the previous chest CT there is a low-attenuation lesion partly seen left upper pole kidney. It could be a cyst but the possibility of a renal mass that has bled is in the differential. Alternatively leak, hemorrhage from a vascular lesion is in the differential. There is no trauma history. Please exclude clinical evidence of excess anticoagulation. NOTIFICATION: Critical Value/emergent results were called by telephone at the time of interpretation on 10/12/2019 7:59 PM to MD ruperto who verbally acknowledged these results. There are vascular calcifications in the abdominal aorta. There is no abdominal aortic aneurysm. No evidence for bowel obstruction. There is a moderate amount of colonic stool to the level the rectum. Hemorrhage tracks adjacent to this descending colon. Hemorrhage also tracks adjacent to several small bowel loops in the left abdomen. Pelvis: Bladder is partly decompressed. There are are several pelvic phleboliths. Patient is likely post hysterectomy. There is no free air. Procedure Note Ivy Tsai MD - 10/12/2019 INDICATION: Hematuria and left flank pain radiates to the lower abdomen.History of hysterectomy and cholecystectomy. Current symptoms for 2days. TECHNIQUE: CT of the abdomen and pelvis without contrast. Coronal and sagittalreconstructions were obtained. Radiation dose reduction techniquesincluded automated exposure control or exposure modulation based on bodysize. Radiation audit for number of CT and nuclear cardiology exams performed in the last year: 0. COMPARISON: There was a noncontrast chest CT 09/08/2019. That study partly includes thekidneys. FINDINGS: Lung bases: See separate CT chest dictation today Abdomen: The noncontrast liver is unremarkable. The patient has had acholecystectomy. There is some fatty replacement of the pancreas. Thespleen is unremarkable. The adrenal glands are unremarkable. There is aright mid to upper pole renal mass lesion is about 2.2 cm in dimension with Hounsfield units that could be a cyst.Its nonspecific. There is no right-sided hydronephrosis or intrarenalcalculus. There is an abnormal appearance centered at the left kidney. There is alarge amount of relatively acute appearing blood in the left subcapsularrenal space. Additionally there is blood tracking into the perirenal spaceand anterior and posterior pararenal spaces on the left. Blood tracks up to the level of the spleeninto the left paracolic gutter and also into the left posterolateralmesenteric region. Per Dr. ann the patient is currently stable. Bloodtracks anterior to left psoas muscle. There is no hydronephrosis. No obstructing calculus is appreciated. Thelarge amount of blood appears result in considerable distortion of theleft renal parenchyma. The size of the hematomas difficult to measure butabout 10.8 cm AP dimension by 8.2 cm mL dimension by 14 cm in length. On review of the previous chest CT thereis a low-attenuation lesion partly seen left upper pole kidney. It couldbe a cyst but the possibility of a renal mass that has bled is in thedifferential. Alternatively leak, hemorrhage from a vascular lesion is in the differential. There is notrauma history. Please exclude clinical evidence of excessanticoagulation. NOTIFICATION: Critical Value/emergent results were called by telephone atthe time of interpretation on 10/12/2019 7:59 PM to MD ruperto who verballyacknowledged these results. There are vascular calcifications in the abdominal aorta. There is noabdominal aortic aneurysm. No evidence for bowel obstruction. There is a moderate amount of colonicstool to the level the rectum. Hemorrhage tracks adjacent to thisdescending colon. Hemorrhage also tracks adjacent to several small bowelloops in the left abdomen. Pelvis: Bladder is partly decompressed. There are are several pelvicphleboliths. Patient is likely post hysterectomy. There is no free air. IMPRESSION: 1. There is a large retroperitoneal hemorrhage centered in the subcapsularleft renal space with hemorrhage tracking into the perirenal and pararenalspaces on the left. Some hemorrhage also tracks along the left anteriorpsoas muscle, into the left paracolic gutter, to the root of the mesentery, and up adjacent to thespleen. The hemorrhage appears relatively recent/acute given thehyperdensity and measures about 10.8 x 8.2 x 14 cm in dimension. Itresults in considerable distortion of the underlying left kidney. Some possible considerations for etiology includehemorrhage from a underlying renal parenchymal mass or vascularmalformation. There is no trauma history. Please exclude clinical evidenceof excess anticoagulation. Study is limited by the lack of IV contrast media. 2. Postcholecystectomy and hysterectomy. Signer Name: Ivy Tsai MD Signed: 10/12/2019 8:04 PM Workstation Name: [email or web address] LUIS [facility] us Rob Hardy DO IMG CT ORDERABLES Final Result * (ABNORMAL) CBC Auto Differential (10/12/2019 5:51 PM EST) WBC 16.17(H) 3.40 - 10.80 10*3/mm3 10/12/2019 6:04 PM [facility] RBC 4.26 3.77 - 5.28 10*6/mm3 10/12/2019 6:04 PM [facility] Hemoglobin 12.5 12.0 - 15.9 g/dL 10/12/2019 6:04 PM [facility] Hematocrit 39.4 34.0 - 46.6 % 10/12/2019 6:04 PM [facility] MCV 92.5 79.0 - 97.0 fL 10/12/2019 6:04 PM [facility] MCH 29.3 26.6 - 33.0 pg 10/12/2019 6:04 PM [facility] MCHC 31.7 31.5 - 35.7 g/dL 10/12/2019 6:04 PM [facility] RDW 14.4 12.3 - 15.4 % 10/12/2019 6:04 PM [facility] RDW-SD 48.6 37.0 - 54.0 fl 10/12/2019 6:04 PM [facility] MPV 9.4 6.0 - 12.0 fL 10/12/2019 6:04 PM [facility] Platelets 215 140 - 450 10*3/mm3 10/12/2019 6:04 PM [facility] Neutrophil % 83.7(H) 42.7 - 76.0 % 10/12/2019 6:04 PM [facility] Lymphocyte % 9.4(L) 19.6 - 45.3 % 10/12/2019 6:04 PM [facility] Monocyte % 5.3 5.0 - 12.0 % 10/12/2019 6:04 PM [facility] Eosinophil % 0.1(L) 0.3 - 6.2 % 10/12/2019 6:04 PM [facility] Basophil % 0.2 0.0 - 1.5 % 10/12/2019 6:04 PM [facility] Immature Grans % 1.3(H) 0.0 - 0.5 % 10/12/2019 6:04 PM [facility] Neutrophils, Absolute 13.54(H) 1.70 - 7.00 10*3/mm3 10/12/2019 6:04 PM [facility] Lymphocytes, Absolute 1.52 0.70 - 3.10 10*3/mm3 10/12/2019 6:04 PM [facility] Monocytes, Absolute 0.85 0.10 - 0.90 10*3/mm3 10/12/2019 6:04 PM [facility] Eosinophils, Absolute 0.01 0.00 - 0.40 10*3/mm3 10/12/2019 6:04 PM [facility] Basophils, Absolute 0.04 0.00 - 0.20 10*3/mm3 10/12/2019 6:04 PM [facility] Immature Grans, Absolute 0.21(H) 0.00 - 0.05 10*3/mm3 10/12/2019 6:04 PM [facility] nRBC 0.0 0.0 - 0.2 /100 WBC 10/12/2019 6:04 PM [facility] Blood Venipuncture / Unknown 10/12/2019 5:51 PM EST 10/12/2019 6:01 PM EST us Rob Hardy DO LAB BLOOD ORDERABLES Final Resul t [facility]
[address] [place] [address], * Gold Top - SST (10/12/2019 5:51 PM EST) Extra Tube Hold for add-ons. 10/12/2019 7:01 PM EST [facility] Comment:Auto resulted. Blood Venipuncture / Unknown 10/12/2019 5:51 PM EST 10/12/2019 6:01 PM EST us [facility] DO LAB BLOOD ORDER ONLY Final Resul t Performing Organization Address City/[facility]/ZIP Co de Phone Number [facility]
[address] [place] [address], * Lavender Top (10/12/2019 5:51 PM EST) Extra Tube hold for add-on 10/12/2019 7:01 PM EST [facility] Comment:Auto resulted Blood Venipuncture / Unknown 10/12/2019 5:51 PM EST 10/12/2019 6:01 PM EST us [facility] DO LAB BLOOD ORDER ONLY Final Resul t Performing Organization Address [facility] Phone Number [facility]
[address] [place] [address], * Green Top (Gel) (10/12/2019 5:51 PM EST) Extra Tube Hold for add-ons. 10/12/2019 7:01 PM EST [facility] Comment:Auto resulted. Blood Venipuncture / Unknown 10/12/2019 5:51 PM EST 10/12/2019 6:01 PM EST us [facility] DO LAB BLOOD ORDER ONLY Final Resul t Performing Organization Address City/[facility] de Phone Number [facility]
[address] [place] [address], [place] [phone] * Light Blue Top (10/12/2019 5:51 PM EST) Extra Tube hold for add-on 10/12/2019 7:01 PM EST [facility] Comment:Auto resulted Blood Venipuncture / Unknown 10/12/2019 5:51 PM EST 10/12/2019 6:01 PM EST [employer] LAB BLOOD ORDER ONLY Final Resul t Performing Organization Address City/[facility]/ZIP Co de Phone Number [facility]
[address] [place] [address], * (ABNORMAL) Lipase (10/12/2019 5:51 PM EST) Lipase 12(L) 13 - 60 U/L 10/12/2019 6:22 PM [facility] Blood Venipuncture / Unknown 10/12/2019 5:51 PM EST 10/12/2019 6:01 PM EST [employer] LAB BLOOD ORDERABLES Final Resul t Performing Organization Address City/[facility]/ZIP Co de Phone Number [facility]
[address] [place] [address], [place] [phone] * (ABNORMAL) Comprehensive Metabolic Panel (10/12/2019 5:51 PM EST) Glucose 199(H) 65 - 99 mg/dL 10/12/2019 6:22 PM [facility] BUN 20 8 - 23 mg/dL 10/12/2019 6:22 PM [facility] Creatinine 1.31(H) 0.57 - 1.00 mg/dL 10/12/2019 6:22 PM [facility] Sodium 135(L) 136 - 145 mmol/L 10/12/2019 6:22 PM [facility] Potassium 4.2 3.5 - 5.2 mmol/L 10/12/2019 6:22 PM [facility] Chloride 94(L) 98 - 107 mmol/L 10/12/2019 6:22 PM [facility] CO2 26.0 22.0 - 29.0 mmol/L 10/12/2019 6:22 PM [facility] Calcium 9.5 8.6 - 10.5 mg/dL 10/12/2019 6:22 PM [facility] Total Protein 7.1 6.0 - 8.5 g/dL 10/12/2019 6:22 PM [facility] Albumin 3.00(L) 3.50 - 5.20 g/dL 10/12/2019 6:22 PM [facility] ALT (SGPT) 23 1 - 33 U/L 10/12/2019 6:22 PM [facility] AST (SGOT) 16 1 - 32 U/L 10/12/2019 6:22 PM [facility] Alkaline Phosphatase 89 39 - 117 U/L 10/12/2019 6:22 PM [facility] Total Bilirubin 0.5 0.2 - 1.2 mg/dL 10/12/2019 6:22 PM [facility] eGFR Non Amer 40(L) >60 mL/min/1.7 3 10/12/2019 6:22 PM [facility] Globulin 4.1 gm/dL 10/12/2019 6:22 PM [facility] A/G Ratio 0.7 g/dL 10/12/2019 6:22 PM [facility] BUN/Creatinine Ratio 15.3 7.0 - 25.0 10/12/2019 6:22 PM [facility] Anion Gap 15.0 5.0 - 15.0 mmol/L 10/12/2019 6:22 PM [facility] Blood Venipuncture / Unknown 10/12/2019 5:51 PM EST 10/12/2019 6:01 PM [facility] - 10/12/2019 6:22 PM EST GFR Normal >60 Chronic Kidney Disease <60 Kidney Failure <15 us Rob Hardy DO LAB BLOOD ORDERABLES Final Resul t [facility]
[address] [place] [address], * [place] CRITICAL CARE ILL/INJURED PATIENT INIT 30-74 MIN, [place] CRITICAL CARE ILL/INJURED PATIENT ADDL 30 MIN (10/12/2019 5:32 PM EST) Rob Avila DO - 10/12/2019 5:32 PM EST Rob Hardy DO ? 10/13/2019 ??5:38 PM Critical Care Performed by: Rob Hardy DO Authorized by: Rob Hardy DO Critical care provider statement: ??Critical care time (minutes): ??80 ??Critical care time was exclusive of: ??Separately billable procedures and treating other patients ??Critical care was necessary to treat or prevent imminent or life-threatening deterioration of the following conditions: ??Circulatory failure and renal failure ??Critical care was time spent personally by me on the following activities: ??Development of treatment plan with patient or surrogate, discussions with consultants, examination of patient, obtaining history from patient or surrogate, evaluation of patient's response to treatment, ordering and performing treatments and interventions, ordering and review of laboratory studies, ordering and review of radiographic studies, pulse oximetry, re-evaluation of patient's condition and review of old charts us Rob Hardy DO PROCEDURE/MINOR SURGICAL ORDERAB LES Final Result documented in this encounter Visit Diagnoses Diagnosis Retroperitoneal hemorrhage- Primary Unspecified hemorrhage Retroperitoneal hemorrhage Unspecified hemorrhage Acute left flank pain documented in this encounter Admitting Diagnoses Diagnosis Retroperitoneal hemorrhage Unspecified hemorrhage documented in this encounter Administered Medications Inactive Administered Medications - up to 3 most recent administrations Medication Order MAR Action Action Date Dose Rate Site diphenhydrAMINE (BENADRYL) injection 50 mg 50 mg, Intravenous, Once, On Thu10/12/19 at 2220, For 1 dose, Schedule Dose 1 Hour Prior to Procedure Requiring Contrast Caution: Look alike/sound alike drug alert. This med may be ordered in other forms and routes. Before giving verify the last time the drug was given by any route/form. Given 10/12/2019 10:44 PM EST 50 mg fentaNYL citrate (PF) (SUBLIMAZE) injection 25 mcg 25 mcg, Intravenous, Every 30 Minutes PRN, Severe Pain, Starting on Thu10/12/19 at 2207, For 2 doses, Use filter needle to withdraw dose from ampule. If given for pain, use the following pain scale: Mild Pain = Pain Score of 1-3, CPOT 1-2 Moderate Pain = Pain Score of 4-6, CPOT 3-4 Severe Pain = Pain Score of 7-10, CPOT 5-8 Given 10/13/2019 12:42 AM EST 25 mcg Given 10/12/2019 10:42 PM EST 25 mcg fentaNYL citrate (PF) (SUBLIMAZE) injection 50 mcg 50 mcg, Intravenous, Every 1 Hour PRN, Severe Pain, Starting on Thu10/12/19 at 2011, Use filter needle to withdraw dose from ampule. If given for pain, use the following pain scale: Mild Pain = Pain Score of 1-3, CPOT 1-2 Moderate Pain = Pain Score of 4-6, CPOT 3-4 Severe Pain = Pain Score of 7-10, CPOT 5-8 Given 10/12/2019 9:11 PM EST 50 mcg Given 10/12/2019 8:16 PM EST 50 mcg HYDROmorphone (DILAUDID) injection 0.5 mg 0.5 mg, Intravenous, Every 10 Minutes PRN, Severe Pain, Starting on Thu10/12/19 at 1807, For 2 doses, If given for pain, use the following pain scale: Mild Pain = Pain Score of 1-3, CPOT 1-2 Moderate Pain = Pain Score of 4-6, CPOT 3-4 Severe Pain = Pain Score of 7-10, CPOT 5-8 Given 10/12/2019 6:33 PM EST 0.5 mg Given 10/12/2019 6:11 PM EST 0.5 mg iopamidol (ISOVUE-370) 76 % injection 150 mL 150 mL, Intravenous, Once in Imaging, On Thu10/12/19 at 2322, For 1 dose Given 10/12/2019 11:28 PM EST 150 mL methylPREDNISolone sodium succinate (SOLU-Medrol) injection 40 mg 40 mg, Intravenous, Every 4 Hours, First dose on Thu10/12/19 at 2300, Until After Procedure Requiring Contrast Has Been Performed Caution: Look alike/sound alike drug alert Given 10/12/2019 10:45 PM EST 40 mg ondansetron (ZOFRAN) injection 4 mg 4 mg, Intravenous, Once, On Thu10/12/19 at 1809, For 1 dose, Maximum Dose 4 mg IV every 6 hours per pharmacy and therapeutics committee Given 10/12/2019 6:12 PM EST 4 mg prothrombin complex conc human (KCentra) IV solution 5,000 Units 5,000 Units, Intravenous, at 360 mL/hr, Administer over 30 Minutes, Once, On Thu10/12/19 at 2015, For 1 dose, Infuse at rate of 3 units/kg/minute (0.12 mL/kg/minute). Max rate 8.4 mL/minute. Kcentra contraindicated in HIT; evaluate benefit of procoagulant versus risk of heparin exposure. {BKC} Infuse at rate of 3 units/kg/minute (0.12 mL/kg/minute); max rate of 8.4 mL/minute Given 10/12/2019 8:43 PM EST 5,000 Units 360 mL/hr sodium chloride 0.9 % bolus 1,000 mL 1,000 mL, Intravenous, at 2,000 mL/hr, Administer over 0.5 Hours, Once, On Thu10/12/19 at 1827, For 1 dose New Bag 10/12/2019 6:33 PM EST 1,000 mL 2000 mL/hr sodium chloride 0.9 % flush 10 mL 10 mL, Intravenous, As Needed, Line Care, Starting on Thu10/12/19 at 1708 documented in this encounter Active and Recently Administered Medications Times are shown in EST. Scheduled Medication Order 10/11/2019 10/12/2019 10/13/2019 diphenhydrAMINE (BENADRYL) injection 50 mg (COMPLETED) 50 mg, Intravenous, Once, On Thu10/12/19 at 2220, For 1 dose, Schedule Dose 1 Hour Prior to Procedure Requiring Contrast Caution: Look alike/sound alike drug alert. This med may be ordered in other forms and routes. Before giving verify the last time the drug was given by any route/form. 2243 (Given - Provider: Olya Knight RN) iopamidol (ISOVUE-370) 76 % injection 150 mL (COMPLETED) 150 mL, Intravenous, Once in Imaging, On Thu10/12/19 at 2322, For 1 dose 2328 (Given - Provider: Sai Hatch) methylPREDNISolone sodium succinate (SOLU-Medrol) injection 40 mg 40 mg, Intravenous, Every 4 Hours, First dose on Thu10/12/19 at 2300, Until After Procedure Requiring Contrast Has Been Performed Caution: Look alike/sound alike drug alert 5 (Given - Provider: Olya Knight RN) ondansetron (ZOFRAN) injection 4 mg (COMPLETED) 4 mg, Intravenous, Once, On Thu10/12/19 at 1809, For 1 dose, Maximum Dose 4 mg IV every 6 hours per pharmacy and therapeutics committee 1812 (Given - Provider: Olya Knight RN) prothrombin complex conc human (KCentra) IV solution 5,000 Units (COMPLETED) 5,000 Units, Intravenous, at 360 mL/hr, Administer over 30 Minutes, Once, On Thu10/12/19 at 2015, For 1 dose, Infuse at rate of 3 units/kg/minute (0.12 mL/kg/minute). Max rate 8.4 mL/minute. Kcentra contraindicated in HIT; evaluate benefit of procoagulant versus risk of heparin exposure. {BKC} Infuse at rate of 3 units/kg/minute (0.12 mL/kg/minute); max rate of 8.4 mL/minute 2042 (Given - Provider: Olya Knight RN) sodium chloride 0.9 % bolus 1,000 mL (COMPLETED) 1,000 mL, Intravenous, at 2,000 mL/hr, Administer over 0.5 Hours, Once, On Thu10/12/19 at 1827, For 1 dose 183 (New Bag - Provider: Jimbo Knight RN)2015 (Stopped - Provider: Olya Knight RN) PRN Medication Order 10/11/2019 10/12/2019 10/13/2019 fentaNYL citrate (PF) (SUBLIMAZE) injection 25 mcg (COMPLETED) 25 mcg, Intravenous, Every 30 Minutes PRN, Severe Pain, Starting on Thu10/12/19 at 2207, For 2 doses, Use filter needle to withdraw dose from ampule. If given for pain, use the following pain scale: Mild Pain = Pain Score of 1-3, CPOT 1-2 Moderate Pain = Pain Score of 4-6, CPOT 3-4 Severe Pain = Pain Score of 7-10, CPOT 5-8 224 (Given - Provider: Olya Knight RN) 0042 (Given - Provider: Linda Carr RN) fentaNYL citrate (PF) (SUBLIMAZE) injection 50 mcg (CANCELED) 50 mcg, Intravenous, Every 1 Hour PRN, Severe Pain, Starting on Thu10/12/19 at 2011, Use filter needle to withdraw dose from ampule. If given for pain, use the following pain scale: Mild Pain = Pain Score of 1-3, CPOT 1-2 Moderate Pain = Pain Score of 4-6, CPOT 3-4 Severe Pain = Pain Score of 7-10, CPOT 5-8 2015 (Given - Provider: Olya Knight RN)2110 (Given - Provider: Olya Knight RN) HYDROmorphone (DILAUDID) injection 0.5 mg (COMPLETED) 0.5 mg, Intravenous, Every 10 Minutes PRN, Severe Pain, Starting on Thu10/12/19 at 1807, For 2 doses, If given for pain, use the following pain scale: Mild Pain = Pain Score of 1-3, CPOT 1-2 Moderate Pain = Pain Score of 4-6, CPOT 3-4 Severe Pain = Pain Score of 7-10, CPOT 5-8 1811 (Given - Provider: Olya Knight RN)1833 (Given - Provider: Olya Knight RN) sodium chloride 0.9 % flush 10 mL 10 mL, Intravenous, As Needed, Line Care, Starting on Thu10/12/19 at 1708 documented in this encounter Additional Health Concerns Infection Onset Date Last Indicated Resolved Time 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 09/08/2019 09/08/2019 documented as of this encounter Care Teams Consulting Sales Manager Relationship Specialty Start Date End Date aDno Romero MD [address] [place] [address] PCP - General Internal Medicine 09/29/19 documented as of this encounter
--- OUTSIDE RECORDS SUMMARY | 2024-08-02 15:08 | XMS_ITS | Encounter Summary ---
[facility] [address] [place] [address] Care Team Providers Care Japanese Tutor Name Role Phone Dano Romero MD Primary Care Provider [phone] Encounter Details Date Type Department Care Team (Late st Contact Info) Description 03/16/2020 Patient Outreach [facility] CASE MANAGEMENT Zoey [...] encounter Miscellaneous Notes * Outreach Note - Zoey Justice RN - 03/16/2020 12:19 PM EDT Care Coordination Note Contacted Dr. Heather Hughes, and informed of unsuccessful attempts to contact patient. Verified patient's contact information and office lists same phone number as number attempted unsuccessfully. Saul reports patient adherent with office visits. Zoey Justice RN Ambulatory Publishing Agent 03/16/2020, 12:19 documented in this encounter Plan of Treatment Not on file documented as of this encounter Visit Diagnoses Not on filedocumented in this encounter Additional Health Concerns Infection Onset Date Last Indicated Resolved Time 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 09/08/2019 09/08/2019 documented as of this encounter Care Teams Japanese Tutor Relationship Specialty Start Date End Date Dano Romero MD [address] [place] [address] PCP - General Internal Medicine 09/29/19 documented as of this encounter
--- OUTSIDE RECORDS SUMMARY | 2024-08-02 15:09 | XMS_ITS | Encounter Summary ---
[facility] [address] [place] [address] Care Team Providers Care Materials Engineer Name Role Phone Huber Grossman MD Primary Care Provider Barbara valladares Reason for Visit * Auth/Cert Specialty Diagnoses / Procedures Referred By Contac t Referred To Contact Diagnoses ARF (acute respiratory failure) Acute on chronic respiratory failure with hypoxia and hypercapnia Procedures Referral ID Status Reason Start Date Expiration Date Visits Re quested Visits Authorized [id number] 1 1 Encounter Details Date Type Department Care Team (Late st Contact Info) Description 09/08/2019 2:45 PM EST Ancillary Procedure [facility] IP SPEECH PATH [address] [place] [id number] Social History Tobacco Use Types Packs/Day Years Used Date Smoking Tobacco: Former Cigarettes Smokeless Tobacco: Never Comments:Quit 20 years ago [...] Procedure Name Priority Date/Time Associated Diagnosis Comments FIBEROPTIC ENDO (FEES) Routine 09/08/2019 3:16 PM EST documented in this encounter Results * Fiberoptic Endo (fees) (09/08/2019 3:16 PM EST) Narrative SYSTEMGENERATED, DOCUMENTATION - 09/08/2019 3:16 PM EST This procedure was auto-finalized with no dictation required. us Jonnathan Grajeda MD IMG DIAGNOSTIC IMAGING ORDERABLES Final Result documented in this encounter Visit Diagnoses Not on filedocumented in this encounter Additional Health Concerns Infection Onset Date Last Indicated Resolved Time 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 09/08/2019 09/08/2019 documented as of this encounter Care Teams Materials Engineer Relationship Specialty Start Date End Date Huber Grossman MD PCP - General Family Medicine 02/08/18 09/28/19 documented as of this encounter
--- OUTSIDE RECORDS SUMMARY | 2024-08-02 15:09 | XMS_ITS | Encounter Summary ---
[facility] [address] [place] [address] Care Team Providers Care Cardiovascular Or Nurse Name Role Phone Dano Romero MD Primary Care Provider [phone] Reason for Visit * Reason Onset Date Comments AH-MESSAGE 08/22/2019 Encounter Details Date Type Department Care Team (Late st Contact Info) Description 08/22/2019 Telephone [facility] FAMILY MEDICINE [facility] [phone] Huber Grossman MD AH-MESSAGE Social History Tobacco Use Types Packs/Day Years Used Date Smoking Tobacco: Former Smokeless Tobacco: Never Alcohol Use Standard Drinks/Week Comments No 0 [...] encounter Miscellaneous Notes * Telephone Encounter - Huber Grossman MD - 08/22/2019 4:11 PM EST thanks * Telephone Encounter - Remigio Morton MA - 08/22/2019 4:08 PM EST FYI * Telephone Encounter - Eri Lorenzo RegSched Rep - 08/22/2019 3:54 PM EST PT CALLED TO ADVISE DR GROSSMAN THAT SHE IS IN A-FIB AND SHE IS BEING TREATED BY DR FREY. SHE WILL BE HAVING A PROCEDURE DONE ON 08/29 TO PUT HER HEART BACK INTO RHYTHM. PROCEDURE IS BEING DONE BYDR COOPER. PT CALL [phone] documented in this encounter Plan of Treatment Not on file documented as of this encounter Visit Diagnoses Not on filedocumented in this encounter Additional Health Concerns Infection Onset Date Last Indicated Resolved Time 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 09/08/2019 09/08/2019 documented as of this encounter Care Teams Cardiovascular Or Nurse Relationship Specialty Start Date End Date Dano Romero MD [address] [place] [address] PCP - General Internal Medicine 09/29/19 documented as of this encounter
--- OUTSIDE RECORDS SUMMARY | 2024-08-02 15:09 | XMS_ITS | Encounter Summary ---
Author Organization [facility] Address [address] [place] [address] Care Team Providers Care Beater Dumper Name Role Phone Huber Grossman MD Primary Care Provider Barbara valladares Reason for Visit * Auth/Cert Specialty Diagnoses / Procedures Referred By Contac t Referred To Contact Diagnoses ARF (acute respiratory failure) Acute on chronic respiratory failure with hypoxia and hypercapnia Procedures Referral ID Status Reason Start Date Expiration Date Visits Re quested Visits Authorized [id number] 1 1 Encounter Details Date Type Department Care Team (Late st Contact Info) Description 09/07/2019 1:48 AM EST - 09/15/2019 4:58 PM [facility] Hospital Encounter [facility] [address] [place] [address] Jonnathan Grajeda MD [address] [place] [address] Jose L Olguin MD Impaired mobility and ADLs (Primary Dx); Pharyngeal dysphagia Discharge Disposition: Senior Care Facility (DC - External) Social History Tobacco Use [...] Sign Reading Time Taken Comments Blood Pressure 169/83 09/15/2019 11:07 AM EST Pulse 99 09/15/2019 4:00 PM EST Temperature 36.6 ??C (97.9 ??F) 09/15/2019 11:[address] Respiratory Rate 18 09/15/2019 3:37 PM EST Oxygen Saturation 94% 09/15/2019 3:37 PM EST Inhaled Oxygen Concentration - - Weight 142 kg (312 lb 12.8 oz) 09/15/2019 5:13 A M EST Height 157.5 cm (5' 2 ) 09/07/2019 1:49 AM EST Body Mass Index 57.21 09/07/2019 1:49 AM EST documented in this encounter Discharge Summaries * Sona Reed, PT - 09/15/2019 2:04 PM EST Patient Name: Nam Mayberry : 1950 Today's Date: 09/15/2019 Admit Date: 09/07/2019 Visit Dx: ICD-10-CM ICD-9-CM 1. Impaired mobility and ADLs Z74.09 799.89 2. Pharyngeal dysphagia R13.13 787.23 Patient Active Problem List Diagnosis ??? Edema, peripheral ??? Anxiety, generalized ??? Dyslipidemia on statin ??? Essential hypertension ??? Laryngeal spasm ??? Vertigo ??? T2DM ??? H/O Asthma ??? Perennial rhinitis ??? GERD ??? Jimenez esophagus ??? DELL ??? Obesity hypoventilation syndrome ??? B12 deficiency ? ? Super obesity (BMI > 50) ??? DELL on CPAP ??? Chronic anticoagulation on Xarelto ??? Hx of Henoch-Schonlein purpura diagnosed 2005 with frequent steroid use for vasculitis (last course 08/17/2019) ??? Hypothyroidism ??? Chronic steroid use ??? Recent diagnosis of atrial fibrillation and placed on Xarelto ??? Morbid obesity with BMI of 50.0-59.9, adult ??? Acute on chronic mixed hypoxemic/hypercarbic respiratory failure acquiring ventilatory support 09/04/2019 (CMS/[facility]) ??? HFrEF ??? History of asthma but no obstruction on PFTs. Questionable acute exacerbation this admission ??? Mild LLL CAP. MRSA PCR positive on nasal swab and respiratory panel positive for parainfluenza virus ??? E. coli UTI 09/04/2019 Past 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: Diagnosis Date ??? Anxiety [...] ??? HYSTERECTOMY 1989 ??? OOPHORECTOMY Bilateral 1989 General Information Row Name 09/15/19 1521 PT Evaluation Time/Intention Document Type therapy note (daily note) -CD Mode of Treatment physical therapy -CD Row Name 09/15/19 1521 General Information Patient Profile Reviewed? yes -CD Existing Precautions/Restrictions fall;oxygen therapy device and L/min -CD Barriers to Rehab medically complex;previous functional deficit -CD Row Name 09/15/19 1521 Cognitive Assessment/Intervention- PT/OT Orientation Status (Cognition) oriented x 4 -CD Row Name 09/15/19 1521 Safety Issues, Functional Mobility Safety Issues Affecting Function (Mobility) insight into deficits/self awareness;safety precaution awareness;safety precautions follow- through/compliance -CD Impairments Affecting Function (Mobility) balance;endurance/activity tolerance;strength;shortness of breath -CD User Patrick (r) = Recorded By, (t) = Taken By, (c) = Cosigned By Initials Name Provider Type CD Sona Reed PT Physical Therapist Mobility Row Name 09/15/19 1522 Bed Mobility Assessment/Treatment Comment (Bed Mobility) PT [facility] UPON ARRIVAL ON 3L O2. -CD Row Name 09/15/19 1522 Transfer Assessment/Treatment Comment (Transfers) CUES FOR HAND PLACEMENT. STS FROM LOW RECLINER. -CD Row Name 09/15/19 1522 Sit-Stand Transfer Sit-Stand Lenore (Transfers) minimum assist (75% patient effort);verbal cues -CD Assistive Device (Sit-Stand Transfers) walker, front-wheeled -CD Row Name 09/15/19 1522 Gait/Stairs Assessment/Training Gait/Stairs Assessment/Training gait/ambulation independence -CD Lenore Level (Gait) contact guard;verbal cues -CD Assistive Device (Gait) walker, front-wheeled -CD Distance in Feet (Gait) 160 FEET ON 3L O2. -CD Pattern (Gait) step-through -CD Deviations/Abnormal Patterns (Gait) stride length decreased;margaret decreased -CD Bilateral Gait Deviations forward flexed posture;heel strike decreased -CD Comment (Gait/Stairs) 2 STANDING REST BREAKS WITH CUES FOR PLB. IMPROVED CONTROL OF R WALKER DURINGTURNS. -CD User Patrick (r) = Recorded By, (t) = Taken By, (c) = Cosigned By Initials Name Provider Type Sona Shannon PT Physical Therapist Obj/Interventions Row Name 09/15/19 1524 Therapeutic Exercise Lower Extremity Range of Motion (Therapeutic Exercise) ankle dorsiflexion/plantar flexion, bilateral -CD Exercise Type (Therapeutic Exercise) AROM (active range of motion) -CD Sets/Reps (Therapeutic Exercise) 1 SET OF 10 REPS. -CD Row Name 09/15/19 1524 Static Sitting Balance Level of Lenore (Unsupported Sitting, Static Balance) supervision -CD Time Able to Maintain Position (Unsupported Sitting, Static Balance) more than 5 minutes -CD Row Name 09/15/19 1524 Dynamic Sitting Balance Level of Lenore, Reaches Outside Midline (Sitting, Dynamic Balance) supervision -CD Row Name 09/15/19 1524 Static Standing Balance Level of Lenore (Supported Standing, Static Balance) contact guard assist -CD Assistive Device Utilized (Supported Standing, Static Balance) walker, rolling -CD Row Name 09/15/19 1524 Dynamic Standing Balance Level of Lenore, Reaches Outside Midline (Standing, Dynamic Balance) contact guard assist -CD Assistive Device Utilized (Supported Standing, Dynamic Balance) walker, rolling -CD Comment, Reaches Outside Midline (Standing, Dynamic Balance) GAIT IN SCRUGGS. -CD User Patrick (r) = Recorded By, (t) = Taken By, (c) = Cosigned By Initials Name Provider Type Sona Shannon PT Physical Therapist Goals/Plan Row Name 09/15/19 1528 Bed Mobility Goal 1 (PT) Activity/Assistive Device (Bed Mobility Goal 1, PT) sit to supine/supine to sit -CD Lenore Level/Cues Needed (Bed Mobility Goal 1, PT) minimum assist (75% or more patient effort) -CD Time Frame (Bed Mobility Goal 1, PT) 2 weeks -CD Progress/Outcomes (Bed Mobility Goal 1, PT) continuing progress toward goal -CD Row Name 09/15/19 1528 Transfer Goal 1 (PT) Activity/Assistive Device (Transfer Goal 1, PT) [id number];walker, rolling -CD Lenore Level/Cues Needed (Transfer Goal 1, PT) contact guard assist -CD Time Frame (Transfer Goal 1, PT) 2 weeks -CD Progress/Outcome (Transfer Goal 1, PT) goal ongoing;continuing progress toward goal -CD Row Name 09/15/19 1528 Gait Training Goal 1 (PT) Activity/Assistive Device (Gait Training Goal 1, PT) gait (walking locomotion);walker, rolling -CD Lenore Level (Gait Training Goal 1, PT) minimum assist (75% or more patient effort) -CD Time Frame (Gait Training Goal 1, PT) 2 weeks -CD Progress/Outcome (Gait Training Goal 1, PT) goal met -CD User Patrick (r) = Recorded By, (t) = Taken By, (c) = Cosigned By Initials Name Provider Type CD Sona Reed, PT Physical Therapist Clinical Impression Row Name 09/15/19 1525 Pain Scale: Numbers Pre/Post-Treatment Pain Scale: Numbers, Pretreatment 0/10 - no pain -CD Pain Scale: Numbers, Post-Treatment 0/10 - no pain -CD Row Name 09/15/19 1525 Plan of Care Review Outcome Summary CUES FOR SAFETY WITH WALKER DURING TRANSFERS. AMBULATED 160 FEET WITH CGA AND R WALKER ON 3L O2. CONTINUE TO RECOMMEND IRF AT D/C. -CD Row Name 09/15/19 1525 Physical Therapy Clinical Impression Patient/Family Goals Statement (PT Clinical Impression) D/C TO SNF LATER TODAY. -CD Criteria for Skilled Interventions Met (PT Clinical Impression) yes;treatment indicated -CD Rehab Potential (PT Clinical Summary) good, to achieve stated therapy goals -CD Row Name 09/15/19 1525 Vital Signs Post Systolic BP Rehab 165 -CD Post Treatment Diastolic BP 98 -CD Posttreatment Heart Rate (beats/min) 92 -CD Pre SpO2 (%) 94 -CD O2 Delivery Pre Treatment supplemental O2 -CD Intra SpO2 (%) 90 -CD O2 Delivery Intra Treatment supplemental O2 -CD Post SpO2 (%) 95 -CD O2 Delivery Post Treatment supplemental O2 -CD Pre Patient Position Sitting -CD Intra Patient Position Standing -CD Post Patient Position Sitting -CD Row Name 09/15/19 1525 Positioning and Restraints Pre-Treatment Position sitting in chair/recliner -CD Post Treatment Position chair -CD In Chair reclined;call light within reach;encouraged to call for assist;with family/caregiver;exit alarm on;legs elevated -CD User Patrick (r) = Recorded By, (t) = Taken By, (c) = Cosigned By Initials Name Provider Type Sona Shannon, PT Physical Therapist Outcome Measures Row Name 09/15/19 1529 How much help from another person do you currently need... Turning from your back to your side while in flat bed without using bedrails? 3 -CD Moving from lying on back to sitting on the side of a flat bed without bedrails? 3 -CD Moving to and from a bed to a chair (including a wheelchair)? 3 -CD Standing up from a chair using your arms (e.g., wheelchair, bedside chair)? 3 -CD Climbing 3-5 steps with a railing? 2 -CD To walk in hospital room? 3 -CD AM-PAC 6 Clicks Score (PT) 17 -CD User Patrick (r) = Recorded By, (t) = Taken By, (c) = Cosigned By Initials Name Provider Type Sona Shannon, PT Physical Therapist PT Recommendation and Plan Outcome Summary/Treatment Plan (PT) Anticipated Equipment Needs at Discharge (PT): front wheeled walker Anticipated Discharge Disposition (PT): nursing home facility Plan of Care Reviewed With: patient, daughter Outcome Summary: CUES FOR SAFETY WITH WALKER DURING TRANSFERS. AMBULATED 160 FEET WITH CGA AND R WALKER ON 3L O2. CONTINUE TO RECOMMEND IRF AT D/C. Time Calculation: PT Charges Row Name 09/15/19 1534 Time Calculation Start Time 1404 -CD PT Received On 09/15/19 -CD PT Goal Re-Cert Due Date 09/18/19 - Time Calculation- PT Total Timed Code Minutes- PT 26 minute(s) -CD Timed Charges 66273 - Gait Training Minutes 15 -CD 35602 - PT Therapeutic Activity Minutes 11 -CD User Patrick (r) = Recorded By, (t) = Taken By, (c) = Cosigned By Initials Name Provider Type CD Sona Reed, PT Physical Therapist Therapy Charges for Today Code Description Service Date Service Provider Modifiers Qty 13366252568 HC GAIT TRAINING EA 15 MIN 09/15/2019 Sona Reed, PT GP 1 02089523668 HC PT THERAPEUTIC ACT EA 15 MIN 09/15/2019 Sona Reed, PT GP 1 12402523688 HC PT THER SUPP EA 15 MIN 09/15/2019 Sona Reed, PT GP 2 PT G-Codes Outcome Measure Options: AM-PAC 6 Clicks Basic Mobility (PT) AM-PAC 6 Clicks Score (PT): 17 AM-PAC 6 Clicks Score (OT): 12 Sona Reed PT 09/15/2019 * Jose L Olguin MD - 09/15/2019 1:42 PM EST Images from the original note were not included. [facility] DISCHARGE SUMMARY Patient Name: Nam Mayberry : 1950 Date of Admission: 09/07/2019 1:48 AM Date of Discharge: 09/15/2019 () Primary Care Physician: Huber Grossman MD Consults Date and Time Order Name Status Description 09/14/2019 0030 Inpatient Cardiology Consult Billy Brown MD - Cardiology Hospital Course Presenting Problem: ARF (acute respiratory failure) (CMS/HCC) [J96.00] Acute on chronic respiratory failure with hypoxia and hypercapnia (CMS/HCC) [J96.21, J96.22] Active Hospital Problems Diagnosis POA ??? Acute on chronic mixed hypoxemic/hypercarbic respiratory failure acquiring ventilatory support 09/04/2019 (CMS/HCC) [J96.21, J96.22] Yes ??? E. coli UTI 09/04/2019 [N39.0, B96.20] Yes ??? History of asthma but no obstruction on PFTs. Questionable acute exacerbation this admission [J45.901] Yes ??? Mild LLL CAP. MRSA PCR positive on nasal swab and respiratory panel positive for parainfluenza virus [J18.9] Yes ??? DELL on CPAP [G47.33, Z99.89] Not Applicable ??? Hx of Henoch-Schonlein purpura diagnosed 2004 with frequent steroid use for vasculitis (last course 08/17/2019) [Z86.2] Not Applicable ??? Hypothyroidism [E03.9] Yes ??? Recent diagnosis of atrial fibrillation and placed on Xarelto [I48.91] Yes ??? Morbid obesity with BMI of 50.0-59.9, adult [E66.01, Z68.43] Not Applicable ??? GERD [K21.9] Yes ??? Obesity hypoventilation syndrome [E66.2] Yes ??? T2DM [E11.9] Yes ??? Dyslipidemia on statin [E78.5] Yes ??? Essential hypertension [I10] Yes Resolved Hospital Problems No resolved problems to display. Acute on Chronic Respiratory Failure Morbid Obesity Sleep Apnea (possibly obstructive + central) Chronic CO2 retention Valium Use Atrial Fibrillation Henoch-Schonlein Purpura On shelter Prednisone therapy Parainfluenza detected Hospital Course: Nam Mayberry is a 69 y.o. female transferred from [facility] to our ICU due to AMS. She had respiratory failure and was intubated. She was transferred due to difficulty with weaning it appears She was treated for UTI and was treated with broad spectrum abx. She was given IV steroids due to being on prednisone 60 mg daily for a month prior to admission. She has severe sleep apnea and co2 retention likely due to obesity hypoventilation syndrome and respiratory suppressing medications such as narcotics and benzodiazapines should be cautionary medications. She really probably needs BiPAP for sleep, but she may have some reluctance to using it based on feedback here. She should follow up with Dr. Sanchez about steroid taper after getting out. This was discussed with Dr. Mcleod today on the day of discharge. She should continue anticoagulation as recommended by Cardiology during their visit here. Discharge Follow Up Recommendations for labs/diagnostics: Benzodiazapine use probably not good for this patient with likely severe sleep apnea. She presented with AMS Day of Discharge HPI: Asking about prednisone therapy so I called Dr. Mcleod in the office of Dr. Sanchez. She will need follow up. Family asking about portable oxygen bottle. Family member seems frustrated for unclear reasons Review of Systems Gen- No fevers, chills CV- No chest pain, palpitations Resp- No cough, dyspnea GI- No N/V/D, abd pain Otherwise ROS is negative except as mentioned in the HPI. Vital Signs: Temp: [97.9 ??F (36.6 ??C)-98.6 ??F (37 ??C)] 97.9 ??F (36.6 ??C) Heart Rate: [73-90] 88 Resp: [18] 18 BP: (129-169)/(74-90) 169/83 Physical Exam: Constitutional: No acute distress, awake, alert HENT: NCAT, dry tongue Respiratory: poor inspiratory effort, no wheezes, distant breath sounds Cardiovascular: RRR, s1 and s2 Gastrointestinal: Positive bowel sounds, soft, nontender, morbidly obese abdomen Musculoskeletal: chronic edema Psychiatric: Appropriate affect, cooperative Neurologic: Oriented x 3, strength symmetric in all extremities, Cranial Nerves grossly intact to confrontation, speech clear Pertinent and/or Most Recent Results Results from last 7 days Lab Units 09/12/19 0416 09/11/19 1208 09/11/19 0720 09/10/19 0622 09/09/19 0534 WBC 10*3/mm3 -- -- 10.35 7.49 5.69 HEMOGLOBIN g/dL -- -- 16.0* 15.8 15.2 HEMATOCRIT % -- -- 52.1* 50.1* 49.1* PLATELETS 10*3/mm3 -- -- 164 142 130* SODIUM mmol/L 134* 133* -- 137 137 POTASSIUM mmol/L 4.3 5.5* -- 3.8 3.7 CHLORIDE mmol/L 92* 91* -- 91* 89* CO2 mmol/L 31.0* 32.0* -- 35.0* 37.0* BUN mg/dL 23 -- 23 25* CREATININE mg/dL 0.62 0.76 -- 0.66 0.69 GLUCOSE mg/dL 193* 369* -- 239* 261* CALCIUM mg/dL 9.7 9.9 -- 9.4 9.1 Results from last 7 days Lab Units 09/11/19 1208 09/10/19 0622 09/09/19 0534 BILIRUBIN mg/dL 0.4 0.5 0.4 ALK PHOS U/L 53 49 47 ALT (SGPT) U/L 26 29 33 AST (SGOT) U/L 14 16 21 Invalid input(s): TG, LDLCALC, LDLREALC Results from last 7 days Lab Units 09/12/19 0416 09/09/19 0534 PROBNP pg/mL 168.3 314.4 PROCALCITONIN ng/mL -- 0.07* Brief Urine Lab Results (Last result in the past 365 days) Color Clarity Blood Leuk Est Nitrite Protein CREAT Urine HCG 09/07/19 0259 Yellow Clear Moderate (2+) Negative Negative 30 mg/dL (1+) Microbiology Results Abnormal Procedure Component Value - Date/Time Blood Culture - Blood, Hand, Left [[id number]] Collected: 09/07/19 0844 Lab Status: Final result Specimen: Blood from Hand, Left Updated: 09/12/19 0901 Blood Culture No growth at 5 days Blood Culture - Blood, Hand, Right [[id number]] Collected: 09/07/19 0838 Lab Status: Final result Specimen: Blood from Hand, Right Updated: 09/12/19 0901 Blood Culture No growth at 5 days Respiratory Culture - Sputum, Cough [[id number]] Collected: 09/09/19 1613 Lab Status: Final result Specimen: Sputum from Cough Updated: 09/11/19 1125 Respiratory Culture Scant growth (1+) Normal Respiratory Rose Gram Stain Moderate (3+) WBCs per low power field Few (2+) Epithelial cells per low power field No organisms seen Urine Culture - Urine, Urine, Catheter [[id number]] (Normal) Collected: 09/07/19 0259 Lab Status: Final result Specimen: Urine, Catheter Updated: 09/08/19 0907 Urine Culture No growth MRSA Screen, PCR - Swab, Nares [[id number]] (Abnormal) Collected: 09/07/19 1438 Lab Status: Final result Specimen: Swab from Nares Updated: 09/07/19 1610 MRSA PCR Positive Respiratory Panel, PCR - Swab, Nasopharynx [[id number]] (Abnormal) Collected: 09/07/19 1437 Lab Status: Final result Specimen: Swab from Nasopharynx Updated: 09/07/19 1604 ADENOVIRUS, PCR Not Detected Coronavirus 229E Not Detected Coronavirus HKU1 Not Detected Coronavirus NL63 Not Detected Coronavirus OC43 Not Detected Human Metapneumovirus Not Detected Human Rhinovirus/Enterovirus Not Detected Influenza B PCR Not Detected Parainfluenza Virus 1 Detected Parainfluenza Virus 2 Not Detected Parainfluenza Virus 3 Not Detected Parainfluenza Virus 4 Not Detected Bordetella pertussis pcr Not Detected Influenza A H1 2009 PCR Not Detected Chlamydophila pneumoniae PCR Not Detected Mycoplasma pneumo by PCR Not Detected Influenza A PCR Not Detected Influenza A H3 Not Detected Influenza A H1 Not Detected RSV, PCR Not Detected Bordetella parapertussis PCR Not Detected Imaging Results (All) Procedure Component Value Units Date/Time XR Chest 2 View [[id number]] Collected: 09/11/19 0813 Updated: 09/11/19 2322 Narrative: EXAMINATION: XR CHEST 2 VIEWS - 09/11/2019 INDICATION: Follow-up left lower lobe infiltrate. COMPARISON: 09/09/2019 FINDINGS: Left basilar atelectasis appears a little less dense. Left upper lung is better expanded. Right lung remains grossly clear. No pneumothorax or effusion is seen. The heart is mildly enlarged. Vasculature appears normal. Impression: Improving left basilar atelectasis. DICTATED: 09/11/2019 EDITED/ls : 09/11/2019 This report was finalized on 09/11/2019 11:[address] Clay Rodriguez MD. XR Chest 1 View [[id number]] Collected: 09/09/19 0846 Updated: 09/09/19 1516 Narrative: EXAMINATION: XR CHEST 1 VW- 09/09/2019 INDICATION: Followup COMPARISON: 09/08/2019 FINDINGS: Heart size is normal. There is persistent airspace disease in the left lower lobe and probable small left pleural effusion. There has been no change when compared to the previous examination of 09/08/2019. Impression: There has been no change since the previous examination of the previous day. E: 09/09/2019 This report was finalized on 09/09/2019 3:[address] Kevin Vergara MD. CT Chest Without Contrast [[id number]] Collected: 09/08/19 1314 Updated: 09/08/19 1555 Narrative: EXAMINATION: CT CHEST WO CONTRAST- INDICATION: Pleural effusion. TECHNIQUE: CT scan of the chest was performed without intravenous contrast. The radiation dose reduction device was turned on for each scan per the ALARA (As Low as Reasonably Achievable) protocol. COMPARISON: Chest x-ray dated 09/08/2019. FINDINGS: There is no axillary lymphadenopathy. There is no mediastinal or hilar adenopathy. There is no pericardial effusion. There is a segmental area of consolidation in the left lower lobe as well as minimal right basilar atelectasis with small bilateral pleural effusions. Impression: There is a segmental or subsegmental area of consolidation in the left lower lobe with a small left pleural effusion. On the right, there is compressive right basilar atelectasis and a small right pleural effusion. E: 09/08/2019 This report was finalized on 09/08/2019 3:[address] Kevin Vergara MD. Fiberoptic Endo (fees) [[id number]] Resulted: 09/08/19 1516 Updated: 09/08/19 1516 Narrative: This procedure was auto-finalized with no dictation required. XR Chest 1 View [[id number]] Collected: 09/08/19 0848 Updated: 09/08/19 1057 Narrative: EXAMINATION: XR CHEST 1 VW- INDICATION: Followup. COMPARISON: Chest x-ray 09/07/2019. FINDINGS: Cardiac silhouette enlarged with blunting of the left lateral costophrenic sulcus and probable trace to small left pleural effusion and/or adjacent atelectasis decreased from prior comparison and overall prominence. Interval extubation and removal of the esophagogastric tube. Impression: Interval extubation and removal of the esophagogastric tube with lung volumes preserved. Decreased opacifications left lung base may represent decreased atelectasis versus airspace disease with probable small left pleural effusion remaining. E: 09/08/2019 This report was finalized on 09/08/2019 10:[address] Dejon Patrick. XR Abdomen KUB [[id number]] Collected: 09/07/19 0340 Updated: 09/07/19 034 Narrative: ABDOMEN, 09/07/2019 HISTORY: NG tube placement TECHNIQUE: Single AP portable radiograph of the upper abdomen. FINDINGS: NG tube in good position with tip in the distal portion of the stomach. No visible gastric distention. Impression: NG tube in good position in the distal stomach. Signer Name: Gabino Almaguer MD Signed: 09/07/2019 3:40 AM Workstation Name: [facility] XR Chest 1 View [[id number]] Collected: 09/07/19 0339 Updated: 09/07/19 034 Narrative: CHEST X-RAY, 09/07/2019 HISTORY: Endotracheal tube placement. TECHNIQUE: AP portable semiupright chest x-ray. FINDINGS: Endotracheal tube is in good position with tip in the mid thoracic trachea about 3.7 cm above the everton. NG tube appears well positioned with tip in the lower stomach. Cardiomegaly. Pulmonary vascularity is normal. Infiltrate or atelectasis in the dependent lung bases. Impression: ETT and NGT in good position as noted above. Signer Name: Gabino Almaguer MD Signed: 09/07/2019 3:39 AM Workstation Name: [facility] Results for orders placed in visit on 06/11/19 SCANNED VASCULAR STUDIES Results for orders placed in visit on 06/11/19 SCANNED VASCULAR STUDIES Results for orders placed in visit on 09/05/19 SCANNED - ECHOCARDIOGRAM Discharge Details Discharge Medications New Medications Instructions Start Date insulin detemir 100 UNIT/ML injection Commonly known as: LEVEMIR 17 Units, Subcutaneous, Every 12 Hours Scheduled insulin lispro 100 UNIT/ML injection Commonly known as: humaLOG 0-14 Units, Subcutaneous, 4 Times Daily With Meals & Nightly insulin lispro 100 UNIT/ML injection Commonly known as: humaLOG 5 Units, Subcutaneous, 3 Times Daily With Meals pantoprazole 40 MG EC tablet Commonly known as: PROTONIX 40 mg, Oral, Daily Start Date: September 16, 2019 saccharomyces boulardii 250 MG capsule Commonly known as: FLORASTOR 500 mg, Oral, 2 Times Daily Continue These Medications Instructions Start Date aspirin 81 MG EC tablet 81 mg, Oral, Daily azelastine 0.1 % nasal spray Commonly known as: ASTELIN 2 sprays, Nasal, Daily, Use in each nostril as directed budesonide-formoterol 160-4.5 MCG/ACT inhaler Commonly known as: SYMBICORT 2 puffs, Inhalation, 2 Times Daily - RT fluticasone 50 MCG/ACT nasal spray Commonly known as: FLONASE 2 sprays, Nasal, Daily furosemide 40 MG tablet Commonly known as: LASIX TAKE 1 TABLET BY MOUTH EVERY DAY levalbuterol 45 MCG/ACT inhaler Commonly known as: XOPENEX HFA 1-2 puffs, Inhalation, Every 4 Hours PRN levothyroxine 75 MCG tablet Commonly known as: SYNTHROID 75 mcg, Oral, Daily loratadine 10 MG tablet Commonly known as: CLARITIN 10 mg, Oral, Daily potassium chloride 10 MEQ CR capsule Commonly known as: MICRO-K TAKE 1 CAPSULE BY MOUTH EVERY DAY prednisoLONE acetate 1 % ophthalmic suspension Commonly known as: PRED FORTE 1 drop predniSONE 10 MG tablet Commonly known as: DELTASONE 60 mg, Oral, Daily rivaroxaban 20 MG tablet Commonly known as: XARELTO 20 mg, Oral, Daily rosuvastatin 10 MG tablet Commonly known as: CRESTOR 10 mg, Oral, Nightly venlafaxine XR 75 MG 24 hr capsule Commonly known as: EFFEXOR-XR 75 mg, Oral, Daily VITAMIN D2 PO 1.25 mg, Oral, Weekly vitamin D3 125 MCG (5000 UT) capsule capsule 5,000 Units, Oral, Daily Stop These Medications azithromycin 250 MG tablet Commonly known as: ZITHROMAX betamethasone dipropionate 0.05 % cream Commonly known as: DIPROLENE cephalexin 500 MG capsule Commonly known as: KEFLEX diazePAM 5 MG tablet Commonly known as: VALIUM DILT-XR 120 MG 24 hr capsule Generic drug: dilTIAZem XR glipizide 5 MG tablet Commonly known as: GLUCOTROL olmesartan 20 MG tablet Commonly known as: BENICAR omeprazole 20 MG capsule Commonly known as: priLOSEC sulfamethoxazole-trimethoprim 800-160 MG per tablet Commonly known as: BACTRIM DS,SEPTRA DS triamterene-hydrochlorothiazide 37.5-25 MG per tablet Commonly known as: MAXZIDE-25 Allergies Allergen Reactions ??? Bactrim [Sulfamethoxazole-Trimethoprim] Paresthesia Recurrent burn of skin on hip when taking med, hemorrhagic circular skin reaction ??? Codeine Anaphylaxis ??? Contrast Dye Anaphylaxis ??? Penicillins Anaphylaxis Has tolerated cephalexin and ceftriaxone 09/2019 ??? Sulfa Antibiotics Other (See Comments) Numb tongue, dizzy, hemorrhagic circular skin reaction ??? Ciprofloxacin Unknown (See Comments) Discharge Disposition: Rehab Facility or Unit (DC - External) - [facility] Diet: Hospital: Diet Order Procedures ??? Diet Regular; Thin; Cardiac, Consistent Carbohydrate Activity: As tolerated Restrictions or Other Recommendations: Consider BiPAP therapy at night and as needed CODE STATUS: Code Status and Medical Interventions: Ordered at: 09/07/19 0302 Code Status: CPR Medical Interventions (Level of Support Prior to Arrest): Full Future Appointments Date Time Provider Department Center 09/29/2019 10:30 AM [facility], P[facility] LAB 3 [facility] None 09/29/2019 11:00 AM Cyn Borja, [employer] [facility] None Additional Instructions for the Follow-ups that You Need to Schedule Discharge Follow-up with PCP As directed Currently Documented PCP: Huber Grossman MD PCP Follow Up Details: Primary Care Doctor - Huber Grossman MD - need re-referral to sleep medicine to work on machine support for breathing Most importantly she needs NIPPV at night and as needed. She has been on CPAP therapy but may need BiPAP. Either would be fine. If CPAP all she will wear, than I suspect that is better than no therapy. It just may not blow off CO2. Time Spent on Discharge: 46 minutes Electronically signed by Jose L Olguin MD, 09/15/19, 1:42 PM. * Chey Lester RN - 09/15/2019 9:17 AM EST Images from the original note were not included. Nam Mayberry (69 y.o. Female) Chey AQUINO, RN, [facility] [phone] Date of Social Security Number Address Home Phone MRN 1950 [id number] [id number] [employer] Marital Status None Admission Date Admission Type Admitting Provider Attending Provider Department, Room/Bed 09/07/19 Urgent Jose L Olguin MD Schnell, Aaron, MD [facility] 3F, S301/1 Discharge Date Discharge Disposition Discharge Destination Attending Provider: Jose L Olguin MD Allergies: Bactrim [Sulfamethoxazole-trimethoprim], Codeine, Contrast Dye, Penicillins, Sulfa Antibiotics, Ciprofloxacin Isolation: Contact Infection: Other (09/08/19), MRSA (09/07/19) Code Status: CPR Ht: 157.5 cm (62 ) Wt: 142 kg (312 lb 12.8 oz) Admission Cmt: None Principal Problem: Acute on chronic mixed hypoxemic/hypercarbic respiratory failure acquiring ventilatory support 09/04/2019 ([facility]) [J96.21,J96.22] Active Insurance as of 09/07/2019 Primary Coverage Payor Plan Insurance Group Employer/Plan Group MEDICARE MEDICARE A & B Payor Plan Address Payor Plan Phone Number Payor Plan Fax Number Effective Dates [address] 03/07/2014 - None Entered [place] [id number] Subscriber Name Subscriber Date Member ID [id number] Quigley 1950 [id number] Secondary Coverage Payor Plan Insurance Group Employer/Plan Group [employer] Payor Plan Address Payor Plan Phone Number Payor Plan Fax Number Effective Dates [address] [address] 10/08/2017 - None Entered [facility] [id number] Subscriber Name Subscriber Date Member ID PERRYNAM Quigley 1950 [id number] Emergency Contacts 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 female who to [facility] as a transfer from [facility] 09/07/19 for higher level of care. The patient was originally brought to [facility] ED via family transport on 09/04/2019 due to altered mental status. She was found to be in acute hypercarbic respiratory failure and failed trial of BiPAP therapy. She was subsequently intubated and placed on mechanical ventilation with improvement in respiratory acidosis. Lab work-up at OSH unremarkable aside from glucose 298, UA with 1+ leukoesterase and 2+ bacteria, and urine culture positive for E. coli. Most recent ABG on 40% FiO2 with pH 7.37/PCO2 63/HCO3 36. Of note, the patient was seen by her PCP in July for lower extremity cellulitis where she was intolerant to a course of Bactrim and was placed on cephalexin. She also has a history of HSP with recurrent vasculitis and has been on and off steroid therapy for the past several years in attempts tomanage disease sequelae; most recent prednisone course was initiated 08/17/19. She is seen by Dr. Hernando Galvan in our office. She has recently been started on CPAP therapy for obstructive sleep apnea. She lives with her son. He has noted that she has been more confused latelyand an episodic manner. She does take Valium 1-2 times a day as needed. After admission to [facility] she was placed on bronchodilators, antibiotics, steroids, and given fluid bolus for possible sepsis. She was initiated on Invanz and azithromycin on admission. There was question of basilar and perihilar infiltrates but the imaging was difficult due to her size. She was sedated but yesterday when sedation was weaned she is able to follow commands. Sheunderwent a weaning trial and was not extubated due to an elevated RSB I of around 140. Echocardiogram revealed normal left ventricular size and EF of 50%. Diastolic parameters were inconclusive. She had a mildly enlarged right ventricle with normal contractility as well as mild mitral and tricuspid regurgitation. BNP and troponin were normal on admission and she maintained sinus rhythm throughout her hospital stay. On the third day of admission she was started on trophic feeds. Initial UA was concerning for UTI and urine culture was positive for E. coli which was sensitive toInvanz. History Past 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: Diagnosis Date ??? Anxiety ??? Cancer (CMS/HCC) ??? Depression ??? Diabetes mellitus (CMS/HCC) ??? Hyperlipidemia ??? Hypertension Past Surgical History: Procedure Laterality Date ??? CATARACT EXTRACTION Left 2018 ??? HYSTERECTOMY 1989 ??? OOPHORECTOMY Bilateral 1989 Family History Problem Relation Age of Onset ??? Stroke Mother ??? Alzheimer's disease Mother ??? Alzheimer's disease Paternal Aunt ??? Heart failure Father ??? Heart failure Paternal Grandfather ??? Breast cancer Neg Hx ??? Ovarian cancer Neg Hx Social History Tobacco Use ??? Smoking status: Former Smoker ??? Smokeless tobacco: Never Used Substance Use Topics ??? Alcohol use: No ??? Drug use: No Review of Systems Review of systems could not be obtained due to patient intubated. Objective Vital Signs FiO2 (%): [100 %] 100 % Physical Exam: Objective: General Appearance: In no acute distress. Vital signs: (most recent): Weight 131 kg (288 lb 12.8 oz), not currently . HEENT: (Oral ET tube Orogastric tube) Lungs: Normal effort and normal respiratory rate. She is not in respiratory distress. There are decreased breath sounds, wheezes and rhonchi. No rales. Heart: Normal rate. Regular rhythm. S1 normal and S2 normal. No murmur, gallop or friction rub. Chest: Symmetric chest wall expansion. Abdomen: Abdomen is soft and non-distended. (Morbidly obese). Bowel sounds are normal. There is no abdominal tenderness. Extremities: There is dependent edema. There is no deformity. (Mild chronic appearing changes rightgreater than left lower extremity) Neurological: (Sedated). Pupils: Pupils are equal, round, and reactive to light. Skin: Warm and dry. Results Review: I personally viewed and interpreted the patient's EKG/Telemetry data Reviewed extensive outside records Assessment/Plan Assessment: Active Hospital Problems Diagnosis ??? Acute on chronic respiratory failure with hypoxia and hypercapnia (CMS/HCC) ??? Asthma with acute exacerbation ??? CAP (community acquired pneumonia) ??? Obesity hypoventilation syndrome ??? DELL on CPAP ??? Chronic anticoagulation on Xarelto ??? Hx of Henoch-Schonlein purpura Diagnosed in 2004; followed by [facility] ??? Hypothyroidism ??? Chronic steroid use ??? Atrial fibrillation ??? Morbid obesity with BMI of 50.0-59.9, adult ??? HFrEF ??? GERD ??? T2DM ??? Dyslipidemia on statin ??? Essential hypertension 69-year-old female admitted to [facility] on 09/04 with acute on chronic mixed respiratory failure. Followed by Dr. Hernando Galvan in our office for asthma, obesity hypoventilation syndrome, and obstructive sleep apnea. Was also noted to recently have atrial fibrillation and saw . Was treated with calcium channel blockers and Xarelto. Has been in normal sinus rhythm thr oughout her hospital stay at [facility]. Was felt to have pneumonia on admission there based upon her chest x-ray. Has been treated with steroids, antibiotics, and bronchodilators with some improvement though as of yesterday morning she still had an elevated RSB I and was unable to be extubated. Transfer was requested to our facility for a higher level of care. Plan: 1. ICU admission 2. Ventilator adjustments made 3. Continue broad-spectrum antibiotics 4. Repeat pancultures 5. IV steroids 6. Bronchodilators 7. Additional diuresis 8. Continue attempts at ventilator weaning 9. Levothyroxine for hypothyroidism 10. Sliding scale insulin 11. DVT and GI prophylaxis. I note that recently she was on Xarelto for atrial fibrillation but shehas remained in normal sinus rhythm throughout her hospital stay at [facility]. Will place on subcutaneous prophylactic doses of heparin. I discussed the patients findings and my recommendations with nursing staff. Critical Care time spent in direct patient care: 60 minutes (excluding procedure time, if applicable) including high complexity decision making to assess, manipulate, and support vital organ system failure in this individual who has impairment of one or more vital organ systems such that there is ahigh probability of imminent or life threatening deterioration in the patient???s condition. I have seen and examined patient, performing a [id number] diagnostic evaluation with plan of carereviewed and developed with [employer] and nursing staff. I have addended and modified the above history of present illness, physical examination, and assessment and plan to reflect my findings and impressions. Jonnathan Grajeda MD Pulmonary and Critical Care Medicine 1033 Current Facility-Administered Medications Medication Dose Route Frequency Provider Last Rate Last Dose ??? aspirin EC tablet 81 mg 81 mg Oral Daily Luis Lemus MD 81 mg at 09/14/1935 ??? azelastine (ASTELIN) nasal spray 2 spray 2 spray Each Nare BID Luis Lemus MD 2 spray at 09/14/1936 ??? budesonide (PULMICORT) nebulizer solution 0.5 mg 0.5 mg Nebulization BID - RT Luis Lemus MD 0.5 mg at 09/15/19 0659 ??? calcium carbonate EX (TUMS EX) chewable tablet 750 mg 750 mg Oral TID PRN Luis Lemus MD ??? cetirizine (zyrTEC) tablet 10 mg 10 mg Oral Daily Luis Lemus MD 10 mg at 09/14/1935 ??? dextrose (D50W) 25 g/ 50mL Intravenous Solution 25 g 25 g Intravenous Q15 Min PRN Luis Lemus MD ??? dextrose (GLUTOSE) oral gel 15 g 15 g Oral Q15 Min PRN Luis Lemus MD ??? fluticasone (FLONASE) 50 MCG/ACT nasal spray 2 spray 2 spray Nasal Daily Luis Lemus MD 2spray at 09/14/1936 ??? furosemide (LASIX) tablet 40 mg 40 mg Oral Daily Luis Lemus MD 40 mg at 09/14/1935 ??? glucagon (human recombinant) (GLUCAGEN DIAGNOSTIC) injection 1 mg 1 mg Subcutaneous Q15 Min PRNHLuis amin MD ??? insulin detemir (LEVEMIR) injection 17 Units 17 Units Subcutaneous Q12H Jose L Olguin MD 17 Units at 09/14/19 2100 ? ? insulin lispro (humaLOG) injection 0-14 Units 0-14 Units Subcutaneous 4x Daily With Meals &Nightly Luis Lemus MD 12 Units at 09/14/192121 ??? insulin lispro (humaLOG) injection 5 Units 5 Units Subcutaneous TID With Meals Jose L Olguin MD 5 Units at 09/14/19 1659 ??? ipratropium-albuterol (DUO-NEB) nebulizer solution 3 mL 3 mL Nebulization Q4H - RT Luis Lemus MD 3 mL at 09/15/19 0658 ??? levothyroxine (SYNTHROID, LEVOTHROID) tablet 75 mcg 75 mcg Oral Q AM Luis Lemus MD 75 mcg at 09/15/19 0631 ??? nystatin (MYCOSTATIN) powder Topical Q12H Luis Lemus MD ??? pantoprazole (PROTONIX) EC tablet 40 mg 40 mg Oral Daily Luis Lemus MD 40 mg at ??? potassium chloride (MICRO-K) CR capsule 30 mEq 30 mEq Oral BID With Meals Luis Lemus MD 30 mEq at 09/14/19 1659 ??? predniSONE (DELTASONE) tablet 60 mg 60 mg Oral Daily With Breakfast Luis Lemus MD 60 mg at 09/14/19 0935 ??? rivaroxaban (XARELTO) tablet 20 mg 20 mg Oral Daily With Dinner Luis Lemus MD 20 mg at 09/14/19 165 ??? rosuvastatin (CRESTOR) tablet 10 mg 10 mg Oral Nightly Luis Lemus MD 10 mg at 09/14/192120 ??? saccharomyces boulardii (FLORASTOR) capsule 500 mg 500 mg Oral BID Luis Lemus MD 500 mg at 09/14/192120 ??? sodium chloride 0.9 % flush 10 mL 10 mL Intravenous Q12H Luis Lemus MD 10 mL at ??? sodium chloride 0.9 % flush 10 mL 10 mL Intravenous PRN Luis Lemus MD ??? venlafaxine XR (EFFEXOR-XR) 24 hr capsule 75 mg 75 mg Oral Daily Luis Lemus MD 75 mg at 09/14/19 1242 ??? vitamin D3 capsule 5,000 Units 5,000 Units Oral Daily Luis Lemus MD 5,000 Units at 09/14/19 1242 Physician Progress Notes (most recent note) Jose L Olguin MD at 09/14/19 1831 [facility] PROGRESS NOTE Patient Name: Nam Mayberry : 1950 Date of Admission: 09/07/2019 Primary Care Physician: Huber Grossman MD Subjective Subjective CC: Altered mental status HPI: No family in room today. She wakes up easily but is sleeping without a machine. I encouraged her to use machine while sleeping at any time. No bladder or bowel reports. No fever or chills Review of Systems Gen- No fevers, chills CV- No chest pain, palpitations Resp- No cough, dyspnea GI- No N/V/D, abd pain Objective Objective Vital Signs: Temp: [98.2 ??F (36.8 ??C)-98.6 ??F (37 ??C)] 98.6 ??F (37 ??C) Heart Rate: [74-96] 90 Resp: [18-20] 18 BP: (134-164)/(74-98) 134/74 Physical Exam: Constitutional: No acute distress, awake, alert HENT: NCAT, mucous membranes moist Respiratory: Poor inspiratory effort, no wheezes, distant breath sounds Cardiovascular: RRR, S1-S2 Gastrointestinal: Positive bowel sounds, soft, nontender, severe morbid obesity Musculoskeletal: No bilateral ankle edema Psychiatric: Appropriate affect, cooperative Neurologic: Oriented x 3, strength symmetric in all extremities, Cranial Nerves grossly intact to confrontation, speech clear Skin: No rashes Results Reviewed: Results from last 7 days Lab Units 09/11/19 0720 09/10/19 0622 09/09/19 0534 09/08/19 0642 WBC 10*3/mm3 10.35 7.49 5.69 -- HEMOGLOBIN g/dL 16.0* 15.8 15.2 -- HEMATOCRIT % 52.1* 50.1* 49.1* -- PLATELETS 10*3/mm3 164 142 130* -- PROCALCITONIN ng/mL -- -- 0.07* 0.07* Results from last 7 days Lab Units 09/12/19 0416 09/11/19 1208 09/10/19 0622 09/09/19 0534 09/08/19 0642 SODIUM mmol/L 134* 133* 137 137 139 POTASSIUM mmol/L 4.3 5.5* 3.8 3.7 4.1 CHLORIDE mmol/L 92* 91* 91* 89* 91* CO2 mmol/L 31.0* 32.0* 35.0* 37.0* 38.0* BUN mg/dL 20 23 23 25* 26* CREATININE mg/dL 0.62 0.76 0.66 0.69 0.65 GLUCOSE mg/dL 193* 369* 239* 261* 270* CALCIUM mg/dL 9.7 9.9 9.4 9.1 9.2 ALT (SGPT) U/L -- 26 29 33 36* AST (SGOT) U/L -- 14 16 21 27 PROBNP pg/mL 168.3 -- -- 314.4 255.6 Estimated Creatinine Clearance: 88.9 mL/min (by C-G formula based on SCr of 0.62 mg/dL). Microbiology Results Abnormal Procedure Component Value - Date/Time Blood Culture - Blood, Hand, Left [[id number]] Collected: 09/07/19 0844 Lab Status: Final result Specimen: Blood from Hand, Left Updated: 09/12/19 09 Blood Culture No growth at 5 days Blood Culture - Blood, Hand, Right [[id number]] Collected: 09/07/19 0838 Lab Status: Final result Specimen: Blood from Hand, Right Updated: 09/12/19 0901 Blood Culture No growth at 5 days Respiratory Culture - Sputum, Cough [[id number]] Collected: 09/09/19 1613 Lab Status: Final result Specimen: Sputum from Cough Updated: 09/11/19 1125 Respiratory Culture Scant growth (1+) Normal Respiratory Rose Gram Stain Moderate (3+) WBCs per low power field Few (2+) Epithelial cells per low power field No organisms seen Urine Culture - Urine, Urine, Catheter [[id number]] (Normal) Collected: 09/07/19 0259 Lab Status: Final result Specimen: Urine, Catheter Updated: 09/08/19 0907 Urine Culture No growth MRSA Screen, PCR - Swab, Nares [[id number]] (Abnormal) Collected: 09/07/19 1438 Lab Status: Final result Specimen: Swab from Nares Updated: 09/07/19 1610 MRSA PCR Positive Respiratory Panel, PCR - Swab, Nasopharynx [[id number]] (Abnormal) Collected: 09/07/19 1437 Lab Status: Final result Specimen: Swab from Nasopharynx Updated: 09/07/19 1604 ADENOVIRUS, PCR Not Detected Coronavirus 229E Not Detected Coronavirus HKU1 Not Detected Coronavirus NL63 Not Detected Coronavirus OC43 Not Detected Human Metapneumovirus Not Detected Human Rhinovirus/Enterovirus Not Detected Influenza B PCR Not Detected Parainfluenza Virus 1 Detected Parainfluenza Virus 2 Not Detected Parainfluenza Virus 3 Not Detected Parainfluenza Virus 4 Not Detected Bordetella pertussis pcr Not Detected Influenza A H1 2008 PCR Not Detected Chlamydophila pneumoniae PCR Not Detected Mycoplasma pneumo by PCR Not Detected Influenza A PCR Not Detected Influenza A H3 Not Detected Influenza A H1 Not Detected RSV, PCR Not Detected Bordetella parapertussis PCR Not Detected Imaging Results (Last 24 Hours) No results found for the last 24 hours. Results for orders placed in visit on 09/05/19 SCANNED - ECHOCARDIOGRAM I have reviewed the medications: Scheduled Meds: aspirin 81 mg Oral Daily azelastine 2 spray Each Nare BID budesonide 0.5 mg Nebulization BID - RT cetirizine 10 mg Oral Daily fluticasone 2 spray Nasal Daily furosemide 40 mg Oral Daily insulin detemir 17 Units Subcutaneous Q12H insulin lispro 0-14 Units Subcutaneous 4x Daily With Meals & Nightly insulin lispro 5 Units Subcutaneous TID With Meals ipratropium-albuterol 3 mL Nebulization Q4H - RT levothyroxine 75 mcg Oral Q AM nystatin Topical Q12H pantoprazole 40 mg Oral Daily potassium chloride 30 mEq Oral BID With Meals predniSONE 60 mg Oral Daily With Breakfast rivaroxaban 20 mg Oral Daily With Dinner rosuvastatin 10 mg Oral Nightly saccharomyces boulardii 500 mg Oral BID sodium chloride 10 mL Intravenous Q12H venlafaxine XR 75 mg Oral Daily vitamin D3 5,000 Units Oral Daily Continuous Infusions: PRN Meds:.calcium carbonate EX ??? dextrose ??? dextrose ??? glucagon (human recombinant) ??? sodium chloride Assessment/Plan Assessment & Plan Active Hospital Problems Diagnosis POA ??? Acute on chronic mixed hypoxemic/hypercarbic respiratory failure acquiring ventilatory support 09/04/2019 ([facility]) [J96.21, J96.22] Yes ??? E. coli UTI 09/04/2019 [N39.0, B96.20] Yes ??? History of asthma but no obstruction on PFTs. Questionable acute exacerbation this admission [J45.901] Yes ??? Mild LLL CAP. MRSA PCR positive on nasal swab and respiratory panel positive for parainfluenza virus [J18.9] Yes ??? DELL on CPAP [G47.33, Z99.89] Not Applicable ??? Hx of Henoch-Schonlein purpura diagnosed 2004 with frequent steroid use for vasculitis (last course 08/17/2019) [Z86.2] Not Applicable ??? Hypothyroidism [E03.9] Yes ??? Recent diagnosis of atrial fibrillation and placed on Xarelto [I48.91] Yes ??? Morbid obesity with BMI of 50.0-59.9, adult [E66.01, Z68.43] Not Applicable ??? GERD [K21.9] Yes ??? Obesity hypoventilation syndrome [E66.2] Yes ??? T2DM [E11.9] Yes ??? Dyslipidemia on statin [E78.5] Yes ??? Essential hypertension [I10] Yes Resolved Hospital Problems No resolved problems to display. Brief Hospital Course to date: Nam Mayberry is a 69 y.o. female transferred from [facility] to our ICU. Acute on chronic respiratory failure -She has multiple risk factors including severe morbid obesity -She appears to be reluctant to use BiPAP therapy -Evaluation today she was sleeping in her chair without machine on She had some atelectasis and effusions on imaging She has a history of obesity hypoventilation syndrome Stroke screen was positive for parainfluenza Altered mental status -Seems to be improving -[place] hypoventilating and retaining carbon dioxide She had evidence of hypercarbic respiratory failure Sleep apnea -CPAP therapy or BiPAP therapy -She may have a complex apnea Hypercarbia or CO2 retention -Appears to be a chronic problem -BiPAP would be optimal for her -Impression is that she is not really using the machine right now Morbid obesity -BMI greater than 55 Chronic benzodiazepine/chronic anxiety -Has been on Valium for years at least 3 or more -BiPAP would be the best for her ventilation Diabetes -Adjust insulin as needed Atrial fibrillation -Continue Xarelto per cardiology Discussed case with cardiology today. I discussed the use of anticoagulation with Prasanna Hyde [id number] today. DVT Prophylaxis: Anticoagulated with Xarelto Disposition: I expect the patient to be discharged to Rehab when bed available CODE STATUS: Code Status and Medical Interventions: Ordered at: 09/07/19 0302 Code Status: CPR Medical Interventions (Level of Support Prior to Arrest): Full Electronically signed by Jose L Olguin MD, 09/14/19, 6:31 PM. [id number] Consult Notes (most recent note) No notes of this type exist for this encounter. Physical Therapy Notes (most recent note) Sona Reed PT at 09/13/19 1422 Version 2 of 2 Patient Name: Nam Mayberry : 1950 Today's Date: 09/13/2019 Admit Date: 09/07/2019 Visit Dx: ICD-10-CM ICD-9-CM 1. Impaired mobility and ADLs Z74.09 799.89 2. Pharyngeal dysphagia R13.13 787.23 Patient Active Problem List Diagnosis ??? Edema, peripheral ??? Anxiety, generalized ??? Dyslipidemia on statin ??? Essential hypertension ??? Laryngeal spasm ??? Vertigo ??? T2DM ??? H/O Asthma ??? Perennial rhinitis ??? GERD ??? [place] esophagus ??? DELL ??? Obesity hypoventilation syndrome ??? B12 deficiency ? ? Super obesity (BMI > 50) ??? DELL on CPAP ??? Chronic anticoagulation on Xarelto ??? Hx of Henoch-Schonlein purpura diagnosed 2005 with frequent steroid use for vasculitis (last course 08/17/2019) ??? Hypothyroidism ??? Chronic steroid use ??? Recent diagnosis of atrial fibrillation and placed on Xarelto ??? Morbid obesity with BMI of 50.0-59.9, adult ??? Acute on chronic mixed hypoxemic/hypercarbic respiratory failure acquiring ventilatory support 09/04/2019 ([facility]) ??? HFrEF ??? History of asthma but no obstruction on PFTs. Questionable acute exacerbation this admission ??? Mild LLL CAP. MRSA PCR positive on nasal swab and respiratory panel positive for parainfluenza virus ??? E. coli UTI 09/04/2019 Past 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: Diagnosis Date ??? Anxiety [...] ??? HYSTERECTOMY 1989 ??? OOPHORECTOMY Bilateral 1989 General Information Row Name 09/13/19 1503 PT Evaluation Time/Intention Document Type therapy note (daily note) -CD Mode of Treatment physical therapy -CD Row Name 09/13/19 1503 General Information Patient Profile Reviewed? yes -CD Existing Precautions/Restrictions fall;oxygen therapy device and L/min -CD Barriers to Rehab medically complex;previous functional deficit -CD Row Name 09/13/19 1503 Safety Issues, Functional Mobility Safety Issues Affecting Function (Mobility) safety precautions follow- through/compliance;safety precaution awareness -CD Impairments Affecting Function (Mobility) balance;endurance/activity tolerance;shortness of breath;strength -CD User Patrick (r) = Recorded By, (t) = Taken By, (c) = Cosigned By Initials Name Provider Type CD Sona Reed, PT Physical Therapist Mobility Row Name 09/13/19 1504 Bed Mobility Assessment/Treatment Comment (Bed Mobility) PT SITTING ON COMMODE UPON ARRIVAL WITH NSG/DTR PRESENT. -CD Row Name 09/13/19 1504 Transfer Assessment/Treatment Comment (Transfers) STS FROM COMMODE WITH CUES FOR HAND PLACEMENT. -CD Row Name 09/13/19 1504 Sit-Stand Transfer Sit-Stand Lenore (Transfers) minimum assist (75% patient effort) -CD Assistive Device (Sit-Stand Transfers) walker, front-wheeled -CD Row Name 09/13/19 1504 Gait/Stairs Assessment/Training Gait/Stairs Assessment/Training gait/ambulation independence -CD Lenore Level (Gait) verbal cues -CD Assistive Device (Gait) walker, front-wheeled -CD Distance in Feet (Gait) 65 FEET ON 3L O2. -CD Pattern (Gait) step-through -CD Deviations/Abnormal Patterns (Gait) margaret decreased;stride length decreased -CD Bilateral Gait Deviations forward flexed posture;heel strike decreased -CD Comment (Gait/Stairs) 2 STANDING REST BREAKS WITH CUES FOR PLB. CUES FOR UPRIGHT POSTURE AND MANUALASSIST TO NEGOTIATE TURNS WITH R WALKER. -CD User Patrick (r) = Recorded By, (t) = Taken By, (c) = Cosigned By Initials Name Provider Type Sona Shannon PT Physical Therapist Obj/Interventions Row Name 09/13/19 1506 Therapeutic Exercise Lower Extremity (Therapeutic Exercise) LAQ (long arc quad), bilateral;heel slides, bilateral -CD Lower Extremity Range of Motion (Therapeutic Exercise) ankle dorsiflexion/plantar flexion, bilateral -CD Exercise Type (Therapeutic Exercise) AROM (active range of motion);AAROM (active assistive range ofmotion) AAROM FOR HEEL SLIDES. CUES TO PUSH AWAY WITH EXTENSION. -CD Position (Therapeutic Exercise) seated -CD Sets/Reps (Therapeutic Exercise) 1 SET OF 10 REPS. -CD Row Name 09/13/19 1506 Static Sitting Balance Level of Lenore (Unsupported Sitting, Static Balance) supervision -CD Sitting Position (Unsupported Sitting, Static Balance) -- ON COMMODE. -CD Time Able to Maintain Position (Unsupported Sitting, Static Balance) more than 5 minutes -CD Row Name 09/13/19 1506 Static Standing Balance Level of Lenore (Supported Standing, Static Balance) contact guard assist -CD Assistive Device Utilized (Supported Standing, Static Balance) walker, rolling -CD Row Name 09/13/19 1506 Dynamic Standing Balance Level of Lenore, Reaches Outside Midline (Standing, Dynamic Balance) minimal assist, 75% patient effort -CD Assistive Device Utilized (Supported Standing, Dynamic Balance) walker, rolling -CD Comment, Reaches Outside Midline (Standing, Dynamic Balance) GAIT IN SCRUGGS. -CD User Patrick (r) = Recorded By, (t) = Taken By, (c) = Cosigned By Initials Name Provider Type Sona Shannon PT Physical Therapist Goals/Plan No documentation. Clinical Impression Row Name 09/13/19 1509 Pain Scale: Numbers Pre/Post-Treatment Pain Location back -CD Pain Intervention(s) Ambulation/increased activity;Repositioned -CD Row Name 09/13/19 1509 Pain Scale: FACES Pre/Post-Treatment Pain: FACES Scale, Pretreatment 2-->hurts little bit -CD Pain: FACES Scale, Post-Treatment 2-->hurts little bit -CD Row Name 09/13/19 1509 Plan of Care Review Plan of Care Reviewed With patient;daughter -CD Outcome Summary PT NEEDS CUES FOR SAFETY WITH MOBILITY. AMBULATED 65 FEET WITH MIN ASSIST AND R WALKER ON 3L O2. REQUIRED ONE STANDING REST BREAK ON 3L O2 WITH CUES FOR PLB. RECOMMEND PULMONARY REHABAT D/C FOR RETURN TO MAX LEVEL OF FUNCTION BEFORE HOME. -CD Row Name 09/13/19 1509 Physical Therapy Clinical Impression Patient/Family Goals Statement (PT Clinical Impression) AGREES TO ONGOING P.T. D/C DISPOSITION IS PENDING. -CD Criteria for Skilled Interventions Met (PT Clinical Impression) yes;treatment indicated -CD Rehab Potential (PT Clinical Summary) good, to achieve stated therapy goals -CD Row Name 09/13/19 1509 Vital Signs Post Systolic BP Rehab 157 -CD Post Treatment Diastolic BP 93 -CD Posttreatment Heart Rate (beats/min) 94 -CD Pre SpO2 (%) 92 -CD O2 Delivery Pre Treatment supplemental O2 -CD O2 Delivery Intra Treatment supplemental O2 -CD Post SpO2 (%) 92 -CD O2 Delivery Post Treatment supplemental O2 -CD Pre Patient Position Sitting -CD Intra Patient Position Standing -CD Post Patient Position Sitting -CD Row Name 09/13/19 1509 Positioning and Restraints Pre-Treatment Position bathroom -CD Post Treatment Position chair -CD In Chair reclined;call light within reach;legs elevated;encouraged to call for assist;exit alarm on;with family/caregiver -CD User Patrick (r) = Recorded By, (t) = Taken By, (c) = Cosigned By Initials Name Provider Type CD Sona Reed, PT Physical Therapist Outcome Measures Row Name 09/13/19 1514 How much help from another person do you currently need... Turning from your back to your side while in flat bed without using bedrails? 3 -CD Moving from lying on back to sitting on the side of a flat bed without bedrails? 3 -CD Moving to and from a bed to a chair (including a wheelchair)? 3 -CD Standing up from a chair using your arms (e.g., wheelchair, bedside chair)? 3 -CD Climbing 3-5 steps with a railing? 2 -CD To walk in hospital room? 3 -CD AM-PAC 6 Clicks Score (PT) 17 -CD Row Name 09/13/19 1516 Functional Assessment Outcome Measure Options AM-PAC 6 Clicks Basic Mobility (PT) -CD User Patrick (r) = Recorded By, (t) = Taken By, (c) = Cosigned By Initials Name Provider Type CD Sona Reed PT Physical Therapist PT Recommendation and Plan Outcome Summary/Treatment Plan (PT) Anticipated Equipment Needs at Discharge (PT): front wheeled walker Anticipated Discharge Disposition (PT): inpatient rehabilitation facility(WOULD BENEFIT FROM PULMONARY REHAB. ) Plan of Care Reviewed With: patient, daughter Outcome Summary: PT NEEDS CUES FOR SAFETY WITH MOBILITY. AMBULATED 65 FEET WITH MIN ASSIST AND R WALKER ON 3L O2. REQUIRED ONE STANDING REST BREAK ON 3L O2 WITH CUES FOR PLB. RECOMMEND PULMONARY REHAB AT D/C FOR RETURN TO MAX LEVEL OF FUNCTION BEFORE HOME. Time Calculation: PT Charges Row Name 09/13/19 1517 Time Calculation Start Time 1422 -CD PT Received On 09/13/19 - PT Goal Re-Cert Due Date 09/18/19 - Time Calculation- PT Total Timed Code Minutes- PT 33 minute(s) -CD Timed Charges 06339 - PT Therapeutic Exercise Minutes 8 -CD 66467 - Gait Training Minutes 15 -CD 92566 - PT Therapeutic Activity Minutes 10 -CD User Patrick (r) = Recorded By, (t) = Taken By, (c) = Cosigned By Initials Name Provider Type Sona Reed PT Physical Therapist Therapy Charges for Today Code Description Service Date Service Provider Modifiers Qty 42838596777 HC GAIT TRAINING EA 15 MIN 09/13/2019 Sona Reed, PT GP 1 24411978273 HC PT THERAPEUTIC ACT EA 15 MIN 09/13/2019 Sona Reed PT GP 1 52046845029 HC PT THER SUPP EA 15 MIN 09/13/2019 Sona Reed PT GP 2 PT G-Codes Outcome Measure Options: AM-PAC 6 Clicks Basic Mobility (PT) AM-PAC 6 Clicks Score (PT): 17 AM-PAC 6 Clicks Score (OT): 12 Sona Reed PT 09/13/2019 1520 Sona Reed PT at 09/13/19 1422 Version 1 of 2 Patient Name: Nam Lesterteofilobubba : 1950 Today's Date: 09/13/2019 Admit Date: 09/07/2019 Visit Dx: ICD-10-CM ICD-9-CM 1. Impaired mobility and ADLs Z74.09 799.89 2. Pharyngeal dysphagia R13.13 787.23 Patient Active Problem List Diagnosis ??? Edema, peripheral ??? Anxiety, generalized ??? Dyslipidemia on statin ??? Essential hypertension ??? Laryngeal spasm ??? Vertigo ??? T2DM ??? H/O Asthma ??? Perennial rhinitis ??? GERD ??? Jimenez esophagus ??? DELL ??? Obesity hypoventilation syndrome ??? B12 deficiency ? ? Super obesity (BMI > 50) ??? DELL on CPAP ??? Chronic anticoagulation on Xarelto ??? Hx of Henoch-Schonlein purpura diagnosed 2004 with frequent steroid use for vasculitis (last course 08/17/2019) ??? Hypothyroidism ??? Chronic steroid use ??? Recent diagnosis of atrial fibrillation and placed on Xarelto ??? Morbid obesity with BMI of 50.0-59.9, adult ??? 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 HFrEF ??? History of asthma but no obstruction on PFTs. Questionable acute exacerbation this admission ??? Mild LLL CAP. MRSA PCR positive on nasal swab and respiratory panel positive for parainfluenza virus ??? E. coli UTI 09/04/2019 Past 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: Diagnosis Date ??? Anxiety [...] ??? HYSTERECTOMY 1989 ??? OOPHORECTOMY Bilateral 1989 General Information Row Name 09/13/19 1503 PT Evaluation Time/Intention Document Type therapy note (daily note) -CD Mode of Treatment physical therapy -CD Row Name 09/13/19 1503 General Information Patient Profile Reviewed? yes -CD Existing Precautions/Restrictions fall;oxygen therapy device and L/min -CD Barriers to Rehab medically complex;previous functional deficit -CD Row Name 09/13/19 1503 Safety Issues, Functional Mobility Safety Issues Affecting Function (Mobility) safety precautions follow- through/compliance;safety precaution awareness -CD Impairments Affecting Function (Mobility) balance;endurance/activity tolerance;shortness of breath;strength -CD User Patrick (r) = Recorded By, (t) = Taken By, (c) = Cosigned By Initials Name Provider Type CD Sona Reed PT Physical Therapist Mobility Row Name 09/13/19 1504 Bed Mobility Assessment/Treatment Comment (Bed Mobility) PT SITTING ON COMMODE UPON ARRIVAL WITH NSG/DTR PRESENT. -CD Row Name 09/13/19 1504 Transfer Assessment/Treatment Comment (Transfers) STS FROM COMMODE WITH CUES FOR HAND PLACEMENT. -CD Row Name 09/13/19 1504 Sit-Stand Transfer Sit-Stand Lenore (Transfers) minimum assist (75% patient effort) -CD Assistive Device (Sit-Stand Transfers) walker, front-wheeled -CD Row Name 09/13/19 1504 Gait/Stairs Assessment/Training Gait/Stairs Assessment/Training gait/ambulation independence -CD Lenore Level (Gait) verbal cues -CD Assistive Device (Gait) walker, front-wheeled -CD Distance in Feet (Gait) 65 FEET ON 3L O2. -CD Pattern (Gait) step-through -CD Deviations/Abnormal Patterns (Gait) margaret decreased;stride length decreased -CD Bilateral Gait Deviations forward flexed posture;heel strike decreased -CD Comment (Gait/Stairs) 2 STANDING REST BREAKS WITH CUES FOR PLB. CUES FOR UPRIGHT POSTURE AND MANUALASSIST TO NEGOTIATE TURNS WITH R WALKER. -CD User Patrick (r) = Recorded By, (t) = Taken By, (c) = Cosigned By Initials Name Provider Type CD Sona Reed PT Physical Therapist Obj/Interventions Row Name 09/13/19 1506 Therapeutic Exercise Lower Extremity (Therapeutic Exercise) LAQ (long arc quad), bilateral;heel slides, bilateral -CD Lower Extremity Range of Motion (Therapeutic Exercise) ankle dorsiflexion/plantar flexion, bilateral -CD Exercise Type (Therapeutic Exercise) AROM (active range of motion);AAROM (active assistive range ofmotion) AAROM FOR HEEL SLIDES. CUES TO PUSH AWAY WITH EXTENSION. -CD Position (Therapeutic Exercise) seated -CD Sets/Reps (Therapeutic Exercise) 1 SET OF 10 REPS. -CD Row Name 09/13/19 1506 Static Sitting Balance Level of Lenore (Unsupported Sitting, Static Balance) supervision -CD Sitting Position (Unsupported Sitting, Static Balance) -- ON COMMODE. -CD Time Able to Maintain Position (Unsupported Sitting, Static Balance) more than 5 minutes -CD Row Name 09/13/19 1506 Static Standing Balance Level of Lenore (Supported Standing, Static Balance) contact guard assist -CD Assistive Device Utilized (Supported Standing, Static Balance) walker, rolling -CD Row Name 09/13/19 1506 Dynamic Standing Balance Level of Lenore, Reaches Outside Midline (Standing, Dynamic Balance) minimal assist, 75% patient effort -CD Assistive Device Utilized (Supported Standing, Dynamic Balance) walker, rolling -CD Comment, Reaches Outside Midline (Standing, Dynamic Balance) GAIT IN SCRUGGS. -CD User Patrick (r) = Recorded By, (t) = Taken By, (c) = Cosigned By Initials Name Provider Type CD Sona Reed, PT Physical Therapist Goals/Plan No documentation. Clinical Impression Row Name 09/13/19 1509 Pain Scale: Numbers Pre/Post-Treatment Pain Location back -CD Pain Intervention(s) Ambulation/increased activity;Repositioned -CD Row Name 09/13/19 1509 Pain Scale: FACES Pre/Post-Treatment Pain: FACES Scale, Pretreatment 2-->hurts little bit -CD Pain: FACES Scale, Post-Treatment 2-->hurts little bit -CD Row Name 09/13/19 1509 Plan of Care Review Plan of Care Reviewed With patient;daughter -CD Outcome Summary PT NEEDS CUES FOR SAFETY WITH MOBILITY. AMBULATED 65 FEET WITH MIN ASSIST AND R WALKER ON 3L O2. REQUIRED ONE STANDING REST BREAK ON 3L O2 WITH CUES FOR PLB. RECOMMEND PULMONARY REHABAT D/C FOR RETURN TO MAX LEVEL OF FUNCTION BEFORE HOME. -CD Row Name 09/13/19 1509 Physical Therapy Clinical Impression Patient/Family Goals Statement (PT Clinical Impression) AGREES TO ONGOING P.T. D/C DISPOSITION IS PENDING. -CD Criteria for Skilled Interventions Met (PT Clinical Impression) yes;treatment indicated -CD Rehab Potential (PT Clinical Summary) good, to achieve stated therapy goals -CD Row Name 09/13/19 1509 Vital Signs Post Systolic BP Rehab 157 -CD Post Treatment Diastolic BP 93 -CD Posttreatment Heart Rate (beats/min) 94 -CD Pre SpO2 (%) 92 -CD O2 Delivery Pre Treatment supplemental O2 -CD O2 Delivery Intra Treatment supplemental O2 -CD Post SpO2 (%) 92 -CD O2 Delivery Post Treatment supplemental O2 -CD Pre Patient Position Sitting -CD Intra Patient Position Standing -CD Post Patient Position Sitting -CD Row Name 09/13/19 1509 Positioning and Restraints Pre-Treatment Position bathroom -CD Post Treatment Position chair -CD In Chair reclined;call light within reach;legs elevated;encouraged to call for assist;exit alarm on;with family/caregiver -CD User Patrick (r) = Recorded By, (t) = Taken By, (c) = Cosigned By Initials Name Provider Type Sona Shannon, PT Physical Therapist Outcome Measures Row Name 09/13/19 1514 How much help from another person do you currently need... Turning from your back to your side while in flat bed without using bedrails? 3 -CD Moving from lying on back to sitting on the side of a flat bed without bedrails? 3 -CD Moving to and from a bed to a chair (including a wheelchair)? 3 -CD Standing up from a chair using your arms (e.g., wheelchair, bedside chair)? 3 -CD Climbing 3-5 steps with a railing? 2 -CD To walk in hospital room? 3 -CD AM-PAC 6 Clicks Score (PT) 17 -CD Row Name 09/13/19 1514 Functional Assessment Outcome Measure Options AM-PAC 6 Clicks Basic Mobility (PT) -CD User Patrick (r) = Recorded By, (t) = Taken By, (c) = Cosigned By Initials Name Provider Type Sona Shannon, PT Physical Therapist PT Recommendation and Plan Outcome Summary/Treatment Plan (PT) Anticipated Equipment Needs at Discharge (PT): front wheeled walker Anticipated Discharge Disposition (PT): inpatient rehabilitation facility(WOULD BENEFIT FROM PULMONARY REHAB. ) Plan of Care Reviewed With: patient, daughter Outcome Summary: PT NEEDS CUES FOR SAFETY WITH MOBILITY. AMBULATED 65 FEET WITH MIN ASSIST AND R WALKER ON 3L O2. REQUIRED ONE STANDING REST BREAK ON 3L O2 WITH CUES FOR PLB. RECOMMEND PULMONARY REHAB AT D/C FOR RETURN TO MAX LEVEL OF FUNCTION BEFORE HOME. Time Calculation: PT Charges Row Name 09/13/19 1517 Time Calculation Start Time 1422 -CD PT Received On 09/13/19 -CD PT Goal Re-Cert Due Date 09/18/19 -CD Time Calculation- PT Total Timed Code Minutes- PT 33 minute(s) -CD Timed Charges 37256 - PT Therapeutic Exercise Minutes 8 -CD 57901 - Gait Training Minutes 15 -CD 53977 - PT Therapeutic Activity Minutes 10 -CD User Patrick (r) = Recorded By, (t) = Taken By, (c) = Cosigned By Initials Name Provider Type CD Sona Reed, PT Physical Therapist Therapy Charges for Today Code Description Service Date Service Provider Modifiers Qty 48167795222 HC GAIT TRAINING EA 15 MIN 09/13/2019 Sona Reed, PT GP 1 31237693637 HC PT THERAPEUTIC ACT EA 15 MIN 09/13/2019 Sona Reed, PT GP 1 PT G-Codes Outcome Measure Options: AM-PAC 6 Clicks Basic Mobility (PT) AM-PAC 6 Clicks Score (PT): 17 AM-PAC 6 Clicks Score (OT): 12 Sona Elder. LATRELL Reed 09/13/2019 1520 Occupational Therapy Notes (most recent note) Nikky, Leydi Garza, OT at 09/11/19 1345 Acute Care - Occupational Therapy Initial Evaluation [facility] Patient Name: Nam Mayberry : 1950 Today's Date: 09/11/2019 Onset of Illness/Injury or Date of Surgery: 09/07/19 Date of Referral to OT: 09/09/19 Referring Physician: Dr. Galvan Admit Date: 09/07/2019 ICD-10-CM ICD-9-CM 1. Impaired mobility and ADLs Z74.09 799.89 Patient Active Problem List Diagnosis ??? Edema, peripheral ??? Anxiety, generalized ??? Dyslipidemia on statin ??? Essential hypertension ??? Laryngeal spasm ??? Vertigo ??? T2DM ??? H/O Asthma ??? Perennial rhinitis ??? GERD ??? Jimenez esophagus ??? DELL ??? Obesity hypoventilation syndrome ??? B12 deficiency ? ? Super obesity (BMI > 50) ??? DELL on CPAP ??? Chronic anticoagulation on Xarelto ??? Hx of Henoch-Schonlein purpura diagnosed 2005 with frequent steroid use for vasculitis (last course 08/17/2019) ??? Hypothyroidism ??? Chronic steroid use ??? Recent diagnosis of atrial fibrillation and placed on Xarelto ??? Morbid obesity with BMI of 50.0-59.9, adult ??? 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 HFrEF ??? History of asthma but no obstruction on PFTs. Questionable acute exacerbation this admission ??? Mild LLL CAP. MRSA PCR positive on nasal swab and respiratory panel positive for parainfluenza virus ??? E. coli UTI 09/04/2019 Past 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: Diagnosis Date ??? Anxiety [...] ??? CATARACT EXTRACTION Left 2018 ??? HYSTERECTOMY 1990 ??? OOPHORECTOMY Bilateral 1989 OT ASSESSMENT FLOWSHEET (last 12 hours) Occupational Therapy Evaluation Row Name 09/11/19 1345 OT Evaluation Time/Intention Subjective Information no complaints -JR Document Type evaluation -JR Mode of Treatment occupational therapy -JR Patient Effort excellent -JR Symptoms Noted During/After Treatment shortness of breath -JR General Information Patient Profile Reviewed? yes -JR Onset of Illness/Injury or Date of Surgery 09/07/19 -JR Referring Physician Dr. Galvan -JR Prior Level of Function independent:;gait;transfer;bed mobility;ADL's;dependent:;home management Ptreports requiring increased time with ADL's prior -JR Equipment Currently Used at Home cane, straight;shower chair -JR Pertinent History of Current Functional Problem Pt admitted from OSH with AMS. Pt found to have acute respiratory failure, failed bipap and was intubated. Pt with h/o HSP with recuurent vasculitis. -JR Existing Precautions/Restrictions fall;oxygen therapy device and L/min contact precautions -JR Risks Reviewed patient and family:;increased discomfort -JR Benefits Reviewed patient and family:;improve function;increase independence -JR Barriers to Rehab medically complex;previous functional deficit -JR Relationship/Environment Primary Source of Support/Comfort child(nilay) -JR Lives With child(nilay), adult;grandchild(nilay) -JR Resource/Environmental Concerns Current Living Arrangements home/apartment/condo -JR Home Main Entrance Number of Stairs, Main Entrance one -JR Cognitive Assessment/Interventions Additional Documentation Cognitive Assessment/Intervention (Group) -JR Cognitive Assessment/Intervention- PT/OT Affect/Mental Status (Cognitive) WFL -JR Orientation Status (Cognition) oriented x 4 -JR Follows Commands (Cognition) WFL -JR Safety Deficit (Cognitive) mild deficit;awareness of need for assistance;insight into deficits/selfawareness -JR Bed Mobility Assessment/Treatment Comment (Bed Mobility) Defer up in chair -JR Functional Mobility Functional Mobility- Ind. Level contact guard assist;verbal cues required - Functional Mobility- Device rolling walker - Functional Mobility-Distance (Feet) -- 2 laps in room -JR Functional Mobility- Safety Issues supplemental O2 -JR Functional Mobility- Comment Pt SOA with mobility, required sitting rest period. -JR Sit-Stand Transfer Sit-Stand Lenore (Transfers) minimum assist (75% patient effort);verbal cues - Assistive Device (Sit-Stand Transfers) walker, front-wheeled - ADL Assessment/Intervention BADL Assessment/Intervention toileting - Toileting Assessment/Training Lenore Level (Toileting) perform perineal hygiene;dependent (less than 25% patient effort) - Toileting Position supported standing - General ROM GENERAL ROM COMMENTS R shoulder flexion limited to approx 100 degrees, remainder WFL -JR MMT (Manual Muscle Testing) General MMT Comments B UE functionally 4-/5 -JR Motor Assessment/Interventions Additional Documentation Balance (Group) -JR Static Sitting Balance Level of Lenore (Unsupported Sitting, Static Balance) independent -JR Static Standing Balance Level of Lenore (Supported Standing, Static Balance) contact guard assist -JR Assistive Device Utilized (Supported Standing, Static Balance) walker, rolling -JR Positioning and Restraints Pre-Treatment Position sitting in chair/recliner -JR Post Treatment Position chair -JR In Chair notified nsg;sitting;call light within reach;encouraged to call for assist;with family/caregiver;on mechanical lift sling -JR Pain Scale: FACES Pre/Post-Treatment Pain: FACES Scale, Pretreatment 2-->hurts little bit -JR Pain: FACES Scale, Post-Treatment 2-->hurts little bit -JR Wound 09/07/19 0200 lower abdomen MASD ([place] associated skin damage) Wound - Properties Group Date first assessed: 09/07/19 -WG Time first assessed: 199 -WG Present onHospital Admission: Y -WG Orientation: lower -WG Location: abdomen -WG Primary Wound Type: MASD -WG Plan of Care Review Plan of Care Reviewed With patient -JR Clinical Impression (OT) Date of Referral to OT 09/09/19 -JR OT Diagnosis Decreased independence with ADL's and mobility -JR Patient/Family Goals Statement (OT Eval) Return home -JR Criteria for Skilled Therapeutic Interventions Met (OT Eval) yes;treatment indicated -JR Rehab Potential (OT Eval) good, to achieve stated therapy goals -JR Therapy Frequency (OT Eval) daily -JR Care Plan Review (OT) risks/benefits reviewed;patient/other agree to care plan -JR Anticipated Discharge Disposition (OT) nursing home facility -JR Vital Signs Pre Systolic BP Rehab 147 -JR Pre Treatment Diastolic BP 83 -JR Post Systolic BP Rehab 159 -JR Post Treatment Diastolic BP 93 -JR Pretreatment Heart Rate (beats/min) 97 -JR Posttreatment Heart Rate (beats/min) 95 -JR Pre SpO2 (%) 91 -JR O2 Delivery Pre Treatment supplemental O2 3L -JR Post SpO2 (%) 90 -JR O2 Delivery Post Treatment supplemental O2 -JR Pre Patient Position Sitting -JR Intra Patient Position Standing -JR Post Patient Position Sitting -JR Planned OT Interventions Planned Therapy Interventions (OT Eval) activity tolerance training;adaptive equipment training;BADL retraining;occupation/activity based interventions;passive ROM/stretching;ROM/therapeutic exercise;strengthening exercise;transfer/mobility retraining -JR OT Goals Bed Mobility Goal Selection (OT) bed mobility, OT goal 1 -JR Transfer Goal Selection (OT) transfer, OT goal 1 -JR Dressing Goal Selection (OT) dressing, OT goal 1 -JR Activity Tolerance Goal Selection (OT) activity tolerance, OT goal 1 -JR Additional Documentation Activity Tolerance Goal Selection (OT) (Row) -JR Bed Mobility Goal 1 (OT) Activity/Assistive Device (Bed Mobility Goal 1, OT) sit to supine/supine to sit -JR Lenore Level/Cues Needed (Bed Mobility Goal 1, OT) minimum assist (75% or more patient effort);verbal cues required -JR Time Frame (Bed Mobility Goal 1, OT) shelter goal (LTG);1 week -JR Progress/Outcomes (Bed Mobility Goal 1, OT) goal ongoing -JR Transfer Goal 1 (OT) Activity/Assistive Device (Transfer Goal 1, OT) [id number] -JR Lenore Level/Cues Needed (Transfer Goal 1, OT) contact guard assist;verbal cues required -JR Time Frame (Transfer Goal 1, OT) terminal carman goal (LTG);1 week -JR Progress/Outcome (Transfer Goal 1, OT) goal ongoing -JR Dressing Goal 1 (OT) Activity/Assistive Device (Dressing Goal 1, OT) lower body dressing with AE PRN -JR Lenore/Cues Needed (Dressing Goal 1, OT) minimum assist (75% or more patient effort);verbal cues required -JR Time Frame (Dressing Goal 1, OT) terminal carman goal (LTG);1 week -JR Progress/Outcome (Dressing Goal 1, OT) goal ongoing -JR Activity Tolerance Goal 1 (OT) Activity Tolerance Goal 1 (OT) PT to participate with 10 minute activity with 1 rest period with )2sats > 88% on O2. -JR Activity Level (Endurance Goal 1, OT) 10 min activity;O2 sat >/ equal to 88% -JR Time Frame (Activity Tolerance Goal 1, OT) shelter goal (LTG);1 week -JR Progress/Outcome (Activity Tolerance Goal 1, OT) goal ongoing -JR Patient Education Goal (OT) Activity (Patient Education Goal, OT) Pt to verbalize understanding of WS/EC education to support ADL independence -JR Lenore/Cues/Accuracy (Memory Goal 2, OT) verbalizes understanding -JR Time Frame (Patient Education Goal, OT) terminal carman goal (LTG);1 week - Progress/Outcome (Patient Education Goal, OT) goal ongoing -JR Living Environment Home Accessibility stairs within home - User Patrick (r) = Recorded By, (t) = Taken By, (c) = Cosigned By Initials Name Effective Dates Leydi Ansari OT 02/26/15 - WG Priscila Zeng RN 02/21/16 - OT Recommendation and Plan Outcome Summary/Treatment Plan (OT) Anticipated Discharge Disposition (OT): nursing home facility Planned Therapy Interventions (OT Eval): activity tolerance training, adaptive equipment training, BADL retraining, occupation/activity based interventions, passive ROM/stretching, ROM/therapeutic exercise, strengthening exercise, transfer/mobility retraining Therapy Frequency (OT Eval): daily Plan of Care Review Plan of Care Reviewed With: patient Plan of Care Reviewed With: patient Outcome Summary: OT initial eval and expanded chart review completed. Pt presents with multiple comorbidities and decreased independence with ADL's and mobility. Pt demonstrates excellent motvation for therapy and will be a great rehab candidate.Recommend SNF at d/c. Outcome Measures Row Name 09/11/19 4995 How much help from another is currently needed... Putting on and taking off regular lower body clothing? 1 -JR Bathing (including washing, rinsing, and drying) 2 -JR Toileting (which includes using toilet bed lay or urinal) 1 -JR Putting on and taking off regular upper body clothing 2 -JR Taking care of personal grooming (such as brushing teeth) 3 -JR Eating meals 3 -JR AM-PAC 6 Clicks Score (OT) 12 -JR Functional Assessment Outcome Measure Options AM-PAC 6 Clicks Daily Activity (OT) - User Patrick (r) = Recorded By, (t) = Taken By, (c) = Cosigned By Initials Name Provider Type Leydi Ansari OT Occupational Therapist Time Calculation: Time Calculation- OT Row Name 09/11/19 2906 Time Calculation- OT OT Start Time 1345 - OT Received On 09/11/19 - OT Goal Re-Cert Due Date 09/21/19 - User Patrick (r) = Recorded By, (t) = Taken By, (c) = Cosigned By Initials Name Provider Type Leydi Ansari OT Occupational Therapist Therapy Charges for Today Code Description Service Date Service Provider Modifiers Qty [id number] HC OT EVAL MOD COMPLEXITY 4 09/11/2019 Leydi Sher OT GO 1 Leydi Sher OT 09/11/2019 1508 Speech Language Pathology Notes (most recent note) Yumiko Bower, MS CCC-COMPANION CAREGIVER at 09/14/19 1027 Acute Care - Speech Language Pathology NICU/PEDS Progress Note [facility] Patient Name: Nam Mayberry : 1950 Today's Date: 09/14/2019 Onset of Illness/Injury or Date of Surgery: 09/07/19 Referring Physician: Dr. Galvan Admit Date: 09/07/2019 Visit Dx: ICD-10-CM ICD-9-CM 1. Impaired mobility and ADLs Z74.09 799.89 2. Pharyngeal dysphagia R13.13 787.23 Patient Active Problem List Diagnosis ??? Edema, peripheral ??? Anxiety, generalized ??? Dyslipidemia on statin ??? Essential hypertension ??? Laryngeal spasm ??? Vertigo ??? T2DM ??? H/O Asthma ??? Perennial rhinitis ??? GERD ??? Jimenez esophagus ??? DELL ??? Obesity hypoventilation syndrome ??? B12 deficiency ? ? Super obesity (BMI > 50) ??? DELL on CPAP ??? Chronic anticoagulation on Xarelto ??? Hx of Henoch-Schonlein purpura diagnosed 2005 with frequent steroid use for vasculitis (last course 08/17/2019) ??? Hypothyroidism ??? Chronic steroid use ??? Recent diagnosis of atrial fibrillation and placed on Xarelto ??? Morbid obesity with BMI of 50.0-59.9, adult ??? Acute on chronic mixed hypoxemic/hypercarbic respiratory failure acquiring ventilatory support 09/04/2019 ([facility]/HCC) ??? HFrEF ??? History of asthma but no obstruction on PFTs. Questionable acute exacerbation this admission ??? Mild LLL CAP. MRSA PCR positive on nasal swab and respiratory panel positive for parainfluenza virus ??? E. coli UTI 09/04/2019 Therapy Treatment Rehabilitation Treatment Summary Row Name 09/14/19 1000 Treatment Time/Intention Discipline speech language pathologist -AV Document Type therapy note (daily note) -AV Subjective Information no complaints -AV Mode of Treatment speech-language pathology -AV Therapy Frequency (Swallow) 3 days per week -AV Patient Effort good -AV Recorded by [AV] Yumiko Bower MS CCC-COMPANION CAREGIVER 09/14/19 1026 Row Name 09/14/19 1000 Pain Assessment Additional Documentation Pain Scale: FACES Pre/Post-Treatment (Group) -AV Recorded by [AV] Yumiko Bower MS CCC-COMPANION CAREGIVER 09/14/19 1026 Row Name 09/14/19 1000 Pain Scale: FACES Pre/Post-Treatment Pain: FACES Scale, Pretreatment 0-->no hurt -AV Pain: FACES Scale, Post-Treatment 0-->no hurt -AV Recorded by [AV] Yumiko Bower MS CCC-COMPANION CAREGIVER 09/14/19 1026 Row Name Wound 09/07/19 0200 lower abdomen MASD (Moisutre associated skin damage) Wound - Properties Group Date first assessed: 09/07/19 [WG] Time first assessed: 020 [WG] Present on Hospital Admission: Y [WG] Orientation: lower [WG] Location: abdomen [WG] Primary Wound Type: MASD [WG] Recorded by: [WG] Priscila Zeng RN 09/07/19 0607 Row Name 09/14/19 1000 Outcome Summary/Treatment Plan (COMPANION CAREGIVER) Daily Summary of Progress (COMPANION CAREGIVER) progress toward functional goals is good -AV Plan for Continued Treatment (COMPANION CAREGIVER) cont monitoring. possible discharge to rehab -AV Anticipated Dischage Disposition unknown;anticipate therapy at next level of care -AV Recorded by [AV] Yumiko Bower MS CCC-COMPANION CAREGIVER 09/14/19 1026 User Patrick (r) = Recorded By, (t) = Taken By, (c) = Cosigned By Initials Name Effective Dates Discipline WG Priscila Zeng RN 02/21/16 - Nurse AV Yumiko Bower MS CCC-COMPANION CAREGIVER 01/27/19 - COMPANION CAREGIVER COMPANION CAREGIVER GOALS Row Name 09/14/19 1000 09/12/19 1040 Oral Nutrition/Hydration Goal 1 (COMPANION CAREGIVER) Oral Nutrition/Hydration Goal 1, COMPANION CAREGIVER -- LTG: Pt will tolerate regular diet, thin liquids w/ no overt s/sxs aspiration/distress w/ 100% acc and no cues -RD Time Frame (Oral Nutrition/Hydration Goal 1, COMPANION CAREGIVER) -- by discharge -RD Barriers (Oral Nutrition/Hydration Goal 1, COMPANION CAREGIVER) -- No immediate s/s of aspiration w/ thin or solid trials. Educated on trialing meds in pureed instead of thins to decrease aspiration risk. -RD Progress/Outcomes (Oral Nutrition/Hydration Goal 1, COMPANION CAREGIVER) -- continuing progress toward goal -RD Oral Nutrition/Hydration Goal 2 (COMPANION CAREGIVER) Oral Nutrition/Hydration Goal 2, COMPANION CAREGIVER Pt will tolerate regular solids & thin liquids via small single cup sips w/ no overt s/sxs aspiration/distress w/ 100% acc and no cues -AV Pt will tolerate regular solids & thin liquids via small single cup sips w/ no overt s/sxs aspiration/distress w/ 100% acc and no cues -RD Time Frame (Oral Nutrition/Hydration Goal 2, COMPANION CAREGIVER) short term goal (STG);by discharge -AV short termgoal (STG);by discharge -RD Barriers (Oral Nutrition/Hydration Goal 2, COMPANION CAREGIVER) Tolerating diet w/o s/s of aspiration. CXR improving per chart. -AV Tolerating diet w/o s/s of aspiration. CXR improving per chart. -RD Progress/Outcomes (Oral Nutrition/Hydration Goal 2, COMPANION CAREGIVER) continuing progress toward goal -AV continuing progress toward goal -RD Pharyngeal Strengthening Exercise Goal 1 (COMPANION CAREGIVER) Activity (Pharyngeal Strengthening Goal 1, COMPANION CAREGIVER) increase superior movement of the hyolaryngeal complex;increase anterior movement of the hyolaryngeal complex;increase closure at entrance to airway/closure of airway at glottis;increase squeeze/positive pressure generation;increase tongue base retraction -AV increase superior movement of the hyolaryngeal complex;increase anterior movement of the hyolaryngeal complex;increase closure at entrance to airway/closure of airway at glottis;increase squeeze/positive pressure generation;increase tongue base retraction -RD Increase Superior Movement of the Hyolaryngeal Complex effortful pitch glide (falsetto + pharyngealsqueeze);Darryn -AV effortful pitch glide (falsetto + pharyngeal squeeze);Darryn -RD Increase Anterior Movement of the Hyolaryngeal Complex chin tuck against resistance (CTAR) -AV chintuck against resistance (CTAR) -RD Increase Closure at Entrance to Airway/Closure of Airway at Glottis super- supraglottic swallow -AV super-supraglottic swallow -RD Increase Squeeze/Positive Pressure Generation hard effortful swallow -AV hard effortful swallow -RD Increase Tongue Base Retraction adan -AV adan -RD Lenore/Accuracy (Pharyngeal Strengthening Goal 1, COMPANION CAREGIVER) with minimal cues (75-90% accuracy) -AV with minimal cues (75-90% accuracy) -RD Time Frame (Pharyngeal Strengthening Goal 1, COMPANION CAREGIVER) short term goal (STG);by discharge -AV short termgoal (STG);by discharge -RD Barriers (Pharyngeal Strengthening Goal 1, COMPANION CAREGIVER) -- Reviewed and completed exercises. Left handout in pt's room -RD Progress/Outcomes (Pharyngeal Strengthening Goal 1, COMPANION CAREGIVER) continuing progress toward goal -AV continuing progress toward goal -RD Swallow Management Recall Goal 1 (COMPANION CAREGIVER) Activity (Swallow Management Recall Goal 1, COMPANION CAREGIVER) recall of;safe diet/liquid level;safe diet level/texture;compensatory swallow strategies/techniques -AV recall of;safe diet/liquid level;safe diet level/texture;compensatory swallow strategies/techniques -RD Lenore/Accuracy (Swallow Management Recall Goal 1, COMPANION CAREGIVER) with minimal cues (75-90% accuracy) -AV with minimal cues (75-90% accuracy) -RD Time Frame (Swallow Management Recall Goal 1, COMPANION CAREGIVER) short term goal (STG);by discharge -AV short term goal (STG);by discharge -RD Progress/Outcomes (Swallow Management Recall Goal 1, COMPANION CAREGIVER) continuing progress toward goal -AV continuing progress toward goal -RD Swallow Compensatory Strategies Goal 1 (COMPANION CAREGIVER) Activity (Swallow Compensatory Strategies/Techniques Goal 1, COMPANION CAREGIVER) small cup sips;other (see comments);during p.o. trials;during meal intake -AV small cup sips;other (see comments);during p.o. trials;during meal intake no straws -RD Lenore/Accuracy (Swallow Compensatory Strategies/Techniques Goal 1, COMPANION CAREGIVER) independently (over 90% accuracy) -AV independently (over 90% accuracy) -RD Time Frame (Swallow Compensatory Strategies/Techniques Goal 1, COMPANION CAREGIVER) short term goal (STG);by discharge -AV short term goal (STG);by discharge -RD Barriers (Swallow Compensatory Strategies/Techniques Goal 1, COMPANION CAREGIVER) -- pt able to teach back compensations and demonstrate w/ min cues -RD Progress/Outcomes (Swallow Compensatory Strategies/Techniques Goal 1, COMPANION CAREGIVER) continuing progress toward goal -AV continuing progress toward goal -RD User Patrick (r) = Recorded By, (t) = Taken By, (c) = Cosigned By Initials Name Provider Type Yumiko Fernández MS CCC-COMPANION CAREGIVER Speech and Language Pathologist Luz Marina Acosta MS CCC-COMPANION CAREGIVER Speech and Language Pathologist EDUCATION The patient has been educated in the following areas: Dysphagia (Swallowing Impairment) Oral Care/Hydration. COMPANION CAREGIVER Recommendation and Plan Plan for Continued Treatment (COMPANION CAREGIVER): cont monitoring. possible discharge to rehab Plan of Care Review Plan of Care Reviewed With: patient Daily Summary of Progress (COMPANION CAREGIVER): progress toward functional goals is good Plan of Care Reviewed With: patient Time Calculation: Time Calculation- COMPANION CAREGIVER Row Name 09/14/19 1027 Time Calculation- COMPANION CAREGIVER COMPANION CAREGIVER Start Time 0945 -AV COMPANION CAREGIVER Received On 09/14/19 -AV User Patrick (r) = Recorded By, (t) = Taken By, (c) = Cosigned By Initials Name Provider Type Yumiko Fernández MS CCC-COMPANION CAREGIVER Speech and Language Pathologist Therapy Charges for Today Code Description Service Date Service Provider Modifiers Qty [id number] HC ST TREATMENT SWALLOW 2 09/14/2019 Yumiko Bower MS CCC- COMPANION CAREGIVER GN 1 Yumiko Mary MS CCC-COMPANION CAREGIVER 09/14/2019 1027 Ami Martinez RN - 09/09/2019 4:13 PM EST Nam Mayberry (69 y.o. Female) Please call back to bottle caser at [phone]. Ami Lombardo RN Date of Social Security Number Address Home Phone MRN 1950 [id number] [place] [phone] [id number] [employer] Marital Status None Admission Date Admission Type Admitting Provider Attending Provider Department, Room/Bed 09/07/19 Urgent Jonnathan Grajeda MD Tzouanakis, Alexander E, MD [facility] 2A ICU, N221/1 Discharge Date Discharge Disposition Discharge Destination Attending Provider: Jonnathan Grajeda MD Allergies: Codeine, Contrast Dye, Penicillins, Bactrim [Sulfamethoxazole- trimethoprim], Ciprofloxacin Isolation: Contact Infection: Other (09/08/19), MRSA (09/07/19) Code Status: CPR Ht: 157.5 cm (62 ) Wt: 155 kg (341 lb 14.9 oz) Admission Cmt: None Principal Problem: Acute on chronic respiratory failure with hypoxia and hypercapnia (CMS/HCC) [J96.21,J96.22] Active Insurance as of 09/07/2019 Primary Coverage Payor Plan Insurance Group Employer/Plan Group MEDICARE MEDICARE A & B Payor Plan Address Payor Plan Phone Number Payor Plan Fax Number Effective Dates [address] 03/07/2014 - None Entered [place] [id number] Subscriber Name Subscriber Date Member ID NAM MAYBERRY 1950 [id number] Secondary Coverage Payor Plan Insurance Group Employer/Plan Group [employer] Payor Plan Address Payor Plan Phone Number Payor Plan Fax Number Effective Dates [address] [address] 10/08/2017 - None Entered [facility] [phone] Subscriber Name Subscriber Date Member ID NMA MAYBERRY 1950 [id number] Emergency Contacts Drycleaner (Rel.) Home Phone Work Phone Mobile Phone David Lester (Son) -- -- [phone] Mayra Caitlyn (Daughter) -- -- [phone] Insurance Information MEDICARE/MEDICARE A & B Subscriber: Nam Mayberry Subscriber#: [id number] Group#: Precert#: [employer] Subscriber: Nam Mayberry Subscriber#: [id number] Group#: Precert#: History & Physical Jonnathan Grajeda MD at 09/07/19 0230 Chief complaint: Altered mental status and shortness of breath Subjective Nam Mayberry is a 69 y.o. female who to [facility] as a transfer from [facility] 09/07/19 for higher level of care. The patient was originally brought to [facility] ED via family transport on 09/04/2019 due to altered mental status. She was found to be in acute hypercarbic respiratory failure and failed trial of BiPAP therapy. She was subsequently intubated and placed on mechanical ventilation with improvement in respiratory acidosis. Lab work-up at OSH unremarkable aside from glucose 298, UA with 1+ leukoesterase and 2+ bacteria, and urine culture positive for E. coli. Most recent ABG on 40% FiO2 with pH 7.37/PCO2 63/HCO3 36. Of note, the patient was seen by her PCP in July for lower extremity cellulitis where she was intolerant to a course of Bactrim and was placed on cephalexin. She also has a history of HSP with recurrent vasculitis and has been on and off steroid therapy for the past several years in attempts tomanage disease sequelae; most recent prednisone course was initiated 08/17/19. She is seen by Dr. Hernando Galvan in our office. She has recently been started on CPAP therapy for obstructive sleep apnea. She lives with her son. He has noted that she has been more confused latelyand an episodic manner. She does take Valium 1-2 times a day as needed. After admission to [facility] she was placed on bronchodilators, antibiotics, steroids, and given fluid bolus for possible sepsis. She was initiated on Invanz and azithromycin on admission. There was question of basilar and perihilar infiltrates but the imaging was difficult due to her size. She was sedated but yesterday when sedation was weaned she is able to follow commands. Sheunderwent a weaning trial and was not extubated due to an elevated RSB I of around 140. Echocardiogram revealed normal left ventricular size and EF of 50%. Diastolic parameters were inconclusive. She had a mildly enlarged right ventricle with normal contractility as well as mild mitral and tricuspid regurgitation. BNP and troponin were normal on admission and she maintained sinus rhythm throughout her hospital stay. On the third day of admission she was started on trophic feeds. Initial UA was concerning for UTI and urine culture was positive for E. coli which was sensitive toInvanz. History Past 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: Diagnosis Date ??? Anxiety ??? Cancer (CMS/HCC) ??? Depression ??? Diabetes mellitus (CMS/HCC) ??? Hyperlipidemia ??? Hypertension Past Surgical History: Procedure Laterality Date ??? CATARACT EXTRACTION Left 2018 ??? HYSTERECTOMY 1989 ??? OOPHORECTOMY Bilateral 1989 Family History Problem Relation Age of Onset ??? Stroke Mother ??? Alzheimer's disease Mother ??? Alzheimer's disease Paternal Aunt ??? Heart failure Father ??? Heart failure Paternal Grandfather ??? Breast cancer Neg Hx ??? Ovarian cancer Neg Hx Social History Tobacco Use ??? Smoking status: Former Smoker ??? Smokeless tobacco: Never Used Substance Use Topics ??? Alcohol use: No ??? Drug use: No Review of Systems Review of systems could not be obtained due to patient intubated. Objective Vital Signs FiO2 (%): [100 %] 100 % Physical Exam: Objective: General Appearance: In no acute distress. Vital signs: (most recent): Weight 131 kg (288 lb 12.8 oz), not currently . HEENT: (Oral ET tube Orogastric tube) Lungs: Normal effort and normal respiratory rate. She is not in respiratory distress. There are decreased breath sounds, wheezes and rhonchi. No rales. Heart: Normal rate. Regular rhythm. S1 normal and S2 normal. No murmur, gallop or friction rub. Chest: Symmetric chest wall expansion. Abdomen: Abdomen is soft and non-distended. (Morbidly obese). Bowel sounds are normal. There is no abdominal tenderness. Extremities: There is dependent edema. There is no deformity. (Mild chronic appearing changes rightgreater than left lower extremity) Neurological: (Sedated). Pupils: Pupils are equal, round, and reactive to light. Skin: Warm and dry. Results Review: I personally viewed and interpreted the patient's EKG/Telemetry data Reviewed extensive outside records Assessment/Plan Assessment: Active Hospital Problems Diagnosis ??? Acute on chronic respiratory failure with hypoxia and hypercapnia (CMS/HCC) ??? Asthma with acute exacerbation ??? CAP (community acquired pneumonia) ??? Obesity hypoventilation syndrome ??? DELL on CPAP ??? Chronic anticoagulation on Xarelto ??? Hx of Henoch-Schonlein purpura Diagnosed in 2004; followed by Rheumatology ??? Hypothyroidism ??? Chronic steroid use ??? Atrial fibrillation ??? Morbid obesity with BMI of 50.0-59.9, adult ??? HFrEF ??? GERD ??? T2DM ??? Dyslipidemia on statin ??? Essential hypertension 69-year-old female admitted to [facility] on 09/04 with acute on chronic mixed respiratory failure. Followed by Dr. Hernando Galvan in our office for asthma, obesity hypoventilation syndrome, and obstructive sleep apnea. Was also noted to recently have atrial fibrillation and saw . Was treated with calcium channel blockers and Xarelto. Has been in normal sinus rhythm thr oughout her hospital stay at [facility]. Was felt to have pneumonia on admission there based upon her chest x-ray. Has been treated with steroids, antibiotics, and bronchodilators with some improvement though as of yesterday morning she still had an elevated RSB I and was unable to be extubated. Transfer was requested to our facility for a higher level of care. Plan: 1. ICU admission 2. Ventilator adjustments made 3. Continue broad-spectrum antibiotics 4. Repeat pancultures 5. IV steroids 6. Bronchodilators 7. Additional diuresis 8. Continue attempts at ventilator weaning 9. Levothyroxine for hypothyroidism 10. Sliding scale insulin 11. DVT and GI prophylaxis. I note that recently she was on Xarelto for atrial fibrillation but shehas remained in normal sinus rhythm throughout her hospital stay at [facility]. Will place on subcutaneous prophylactic doses of heparin. I discussed the patients findings and my recommendations with nursing staff. Critical Care time spent in direct patient care: 60 minutes (excluding procedure time, if applicable) including high complexity decision making to assess, manipulate, and support vital organ system failure in this individual who has impairment of one or more vital organ systems such that there is ahigh probability of imminent or life threatening deterioration in the patient???s condition. I have seen and examined patient, performing a [id number]-[id number] diagnostic evaluation with plan of carereviewed and developed with MICROSOFT EXCHANGE ARCHITECT and nursing staff. I have addended and modified the above history of present illness, physical examination, and assessment and plan to reflect my findings and impressions. Jonnathan Grajeda MD Pulmonary and Critical Care Medicine 0325 Current Facility-Administered Medications Medication Dose Route Frequency Provider Last Rate Last Dose ??? aspirin EC tablet 81 mg 81 mg Oral Daily Crescencio Galvan MD 81 mg at 09/09/19 0800 ??? azelastine (ASTELIN) nasal spray 2 spray 2 spray Each Nare BID Crescencio Galvan MD 2 spray at 09/09/19 0801 ??? AZITHROMYCIN 500 MG/250 ML 0.9% NS IVPB (vial-mate) 500 mg Intravenous Q24H Sammie Huff DNP, [employer] ARCHITECT 500 mg at 09/09/19 0607 ??? budesonide (PULMICORT) nebulizer solution 0.5 mg 0.5 mg Nebulization BID - RT Crescencio Galvan MD 0.5 mg at 09/09/19 0730 ??? [START ON 09/10/2019] cefTRIAXone (ROCEPHIN) 1 g/100 mL 0.9% NS (MBP) 1 g Intravenous Q24H Crescencio Galvan MD ??? cetirizine (zyrTEC) tablet 10 mg 10 mg Oral Daily Crescencio Galvan MD 10 mg at 09/09/19 0800 ??? dextrose (D50W) 25 g/ 50mL Intravenous Solution 25 g 25 g Intravenous Q15 Min PRN Dakota Huff DNP, [employer] EXCHANGE ARCHITECT ??? dextrose (GLUTOSE) oral gel 15 g 15 g Oral Q15 Min PRN Sammie Huff DNP, [employer] EXCHANGE ARCHITECT ??? fluticasone (FLONASE) 50 MCG/ACT nasal spray 2 spray 2 spray Nasal Daily Crescencio Galvan MD 2 spray at 09/09/19 0801 ??? furosemide (LASIX) injection 40 mg 40 mg Intravenous BID Crescencio Galvan MD 40 mg at 09/09/19 1004 ??? glucagon (human recombinant) (GLUCAGEN DIAGNOSTIC) injection 1 mg 1 mg Subcutaneous Q15 Min PRNNSammie mercado DNP, [employer] ??? [START ON 09/10/2019] insulin detemir (LEVEMIR) injection 20 Units 20 Units Subcutaneous QAM Crescencio Galvan MD ? ? insulin lispro (humaLOG) injection 0-14 Units 0-14 Units Subcutaneous 4x Daily With Meals &Nightly Sammie Huff DNP, [employer] 5 Units at 09/09/19 1156 ??? ipratropium-albuterol (DUO-NEB) nebulizer solution 3 mL 3 mL Nebulization Q4H - RT Crescencio Galvan MD 3 mL at 09/09/19 1512 ??? levothyroxine sodium injection 56 mcg 56 mcg Intravenous Daily Jonnathan Grajeda MD 56 mcg at 09/09/19 1148 ??? nystatin (MYCOSTATIN) powder Topical Q12H Jonnathan Grajeda MD ??? pantoprazole (PROTONIX) injection 40 mg 40 mg Intravenous Q24H Sammie Huff DNP, [employer] 40 mg at 09/09/19 0801 ??? potassium chloride (KLOR-CON) packet 40 mEq 40 mEq Oral BID Crescencio Galvan MD 40 mEq at 09/09/19 1004 ??? predniSONE (DELTASONE) tablet 60 mg 60 mg Oral Daily With Breakfast Crescencio Galvan MD 60 mg at 09/09/19 1310 ??? rivaroxaban (XARELTO) tablet 20 mg 20 mg Oral Daily With Dinner Crescencio Galvan MD20 mg at 09/08/19 1734 ??? rosuvastatin (CRESTOR) tablet 10 mg 10 mg Oral Nightly Crescencio Galvan MD 10 mg at09/08/19 2111 ??? saccharomyces boulardii (FLORASTOR) capsule 500 mg 500 mg Oral BID Crescencio Galvan MD 500 mg at 09/09/19 1004 ??? sodium chloride 0.9 % flush 10 mL 10 mL Intravenous Q12H Sammie Huff DNP [employer] 10 mL at 09/08/19 2115 ??? sodium chloride 0.9 % flush 10 mL 10 mL Intravenous PRN Sammie Huff DNP, [employer] ??? sulfamethoxazole-trimethoprim (BACTRIM DS,SEPTRA DS) 800-160 MG per tablet 160 mg 1 tablet OralOnce per day on Thu Crescencio Galvan MD 160 mg at 09/09/19 1613 ??? venlafaxine XR (EFFEXOR-XR) 24 hr capsule 75 mg 75 mg Oral Daily Crescencio Galvan MD 75 mg at 09/09/19 0800 ??? vitamin d (CHOLECALIFEROL) capsule 5,000 Units 5,000 Units Oral Daily Crescencio Galvan MD 5,000 Units at 09/09/19 0800 Physician Progress Notes (last 24 hours) (Notes from 09/08/19 1614 through 09/09/19 1614) Crescencio Galvan MD at 09/09/19 1250 CORPORATE TRAVEL CONSULTANT / PULMONARY FOLLOW UP NOTE Hospital: LOS: 2 days Ms. Nam Mayberry, 69 y.o. female is followed for: Acute on chronic respiratory failure with hypoxia and hypercapnia (CMS/HCC) Dyslipidemia on statin Essential hypertension T2DM GERD Obesity hypoventilation syndrome DELL on CPAP Chronic anticoagulation on Xarelto Hx of Henoch-Schonlein purpura Hypothyroidism Chronic steroid use Atrial fibrillation Morbid obesity with BMI of 50.0-59.9, adult HFrEF Asthma with acute exacerbation CAP (community acquired pneumonia) Subjective SUBJECTIVE Oxygenation improving, diuresing well The patient's relevant past medical, surgical, family, and social history were reviewed Allergies and medications were reviewed ROS: Per subjective, all other systems were reviewed and were negative Objective OBJECTIVE Vital Sign Min/Max for last 24 hours: Temp Min: 97.7 ??F (36.5 ??C) Max: 98.3 ??F (36.8 ??C) BP Min: 105/56 Max: 184/105 Pulse Min: 56 Max: 82 Resp Min: 18 Max: 24 SpO2 Min: 88 % Max: 95 % No data recorded Physical Exam: General Appearance: Conversant, in no acute distress Eyes: No scleral icterus or pallor, pupils normal Ears, Nose, Mouth, Throat: Atraumatic, oropharynx clear Neck: Trachea midline, thyroid normal Respiratory: Clear to auscultation bilaterally, normal effort, no tenderness to palpation Cardiovascular: Regular rate and rhythm, no murmurs, no peripheral edema, no thrill Gastrointestinal: Soft, non-tender, non-distended, no hepatosplenomegaly Skin: Normal temperature, no rash Psychiatric: No agitation Neuro: No new focal neurologic deficits observed Telemetry: Hemodynamics: CVP: PAP: PAOP: CO: CI: SVI: SVR: SpO2: 91 % SpO2 Min: 88 % Max: 95 % Device: Flow Rate: No data recorded Intake/Ouptut 24 hrs (7:00AM - 6:59 AM) Intake & Output (last 3 days) 09/06 701 - 09/07 0709/07 0709/08 0709/09 0700 P.O. 170 I.V. (mL/kg) 94 (0.7) 99.6 (0.8) 715.8 (4.6) IV Piggyback 100 449.9 497 Total Intake(mL/kg) 194 (1.5) 549.5 (4.2) 1382.8 (8.9) Urine (mL/kg/hr) 175 6800 (2.2) 6350 (1.7) Stool 0 0 0 Total Output 175 6800 6350 Net +19 -6250.5 -4967.2 Stool Unmeasured Occurrence 1 x 1 x 6 x 1 x Lines, Drains & Airways Active LDAs Name: Placement date: Placement time: Site: Days: Peripheral IV 09/07/19211 Right;Distal Forearm 09/07/19211 Forearm 1 Peripheral IV 09/07/19211 Left;Distal Forearm 09/07/19 0212 Forearm 1 Urethral Catheter Temperature probe 16 Fr. 09/07/19 0233 1 Hematology: Results from last 7 days Lab Units 09/09/19 0534 09/08/19 0433 09/07/19 0845 WBC 10*3/mm3 5.69 6.29 7.96 HEMOGLOBIN g/dL 15.2 14.9 14.6 HEMATOCRIT % 49.1* 49.0* 47.3* PLATELETS 10*3/mm3 130* 127* 113* Electrolytes, Magnesium and Phosphorus: Results from last 7 days Lab Units 09/09/19 0534 09/08/19 0642 09/07/19 1027 SODIUM mmol/L 137 139 139 CHLORIDE mmol/L 89* 91* 93* POTASSIUM mmol/L 3.7 4.1 4.2 CO2 mmol/L 37.0* 38.0* 34.0* MAGNESIUM mg/dL 2.0 2.2 2.1 PHOSPHORUS mg/dL 3.3 3.1 3.4 Renal: Results from last 7 days Lab Units 09/09/19 0534 09/08/19 0642 09/07/19 1027 CREATININE mg/dL 0.69 0.65 0.67 BUN mg/dL 25* 26* 25* Estimated Creatinine Clearance: 95.1 mL/min (by C-G formula based on SCr of 0.69 mg/dL). Hepatic: Results from last 7 days Lab Units 09/09/19 0534 09/08/19 0642 09/07/19 1027 ALK PHOS U/L 47 49 52 BILIRUBIN mg/dL 0.4 0.3 0.2 ALT (SGPT) U/L 33 36* 33 AST (SGOT) U/L 21 27 37* Arterial Blood Gases: Results from last 7 days Lab Units 09/08/19 0353 09/07/19 0416 PH, ARTERIAL pH units 7.486* 7.408 PCO2, ARTERIAL mm Hg 57.8* 61.1* PO2 ART mm Hg 89.2 118.0* FIO2 % 55 70 Results from last 7 days Lab Units 09/07/19 1610 HEMOGLOBIN A1C % 9.10* Lab Results Component Value Date LACTATE 1.3 09/07/2019 Relevant imaging studies and labs from 09/09/19 were reviewed and interpreted by me Medications (drips): aspirin 81 mg Oral Daily azelastine 2 spray Each Nare BID azithromycin 500 mg Intravenous Q24H budesonide 0.5 mg Nebulization BID - RT [START ON 09/10/2019] cefTRIAXone 1 g Intravenous Q24H cetirizine 10 mg Oral Daily fluticasone 2 spray Nasal Daily furosemide 40 mg Intravenous BID [START ON 09/10/2019] insulin detemir 20 Units Subcutaneous QAM insulin lispro 0-14 Units Subcutaneous 4x Daily With Meals & Nightly ipratropium-albuterol 3 mL Nebulization Q4H - RT levothyroxine sodium 56 mcg Intravenous Daily methylPREDNISolone sodium succinate 20 mg Intravenous Q12H nystatin Topical Q12H pantoprazole 40 mg Intravenous Q24H potassium chloride 40 mEq Oral BID rivaroxaban 20 mg Oral Daily With Dinner rosuvastatin 10 mg Oral Nightly saccharomyces boulardii 500 mg Oral BID sodium chloride 10 mL Intravenous Q12H venlafaxine XR 75 mg Oral Daily vitamin d 5,000 Units Oral Daily Assessment/Plan IMPRESSION / PLAN Inpatient Problem List: 69 y.o.female: Active Hospital Problems Diagnosis ??? Acute on chronic respiratory failure with hypoxia and hypercapnia (CMS/HCC) ??? Asthma with acute exacerbation ??? CAP (community acquired pneumonia) ??? DELL on CPAP ??? Chronic anticoagulation on Xarelto ??? Hx of Henoch-Schonlein purpura Diagnosed in 2004; followed by [facility] ??? Hypothyroidism ??? Chronic steroid use ??? Atrial fibrillation ??? Morbid obesity with BMI of 50.0-59.9, adult ??? HFrEF ??? GERD ??? Obesity hypoventilation syndrome ??? T2DM ??? Dyslipidemia on statin ??? Essential hypertension Impression: 69 y.o.female with relevant PMH of DELL / OHS, HTN, Diastolic HF, Paroxysmal Afib, DM, HLD, GERD, Hypothyroidism, h/o HSP with recent flare on steroids per rheumatology since Aug 17, h/o Asthma admitted 09/07/2019 as transfer from OSH with acute on chronic hypercapnic and hypoxemic respiratory failure requiring intubation. Found to be + for parainfluenza virus. Able to be extubated to [facility] 09/07/19. Plan: Acute on Chronic Hypoxemic & Hypercapnic Respiratory Failure / DELL / OHS / Parainfluenza / CAP - Rocephin + Azithro x 7 days, nebs, steroids. Wean HFNC as able. Bipap hs and prn. CT Chest w/ bibasilar pneumonia L > R. Diastolic HF / Afib - continue DOAC. Diuresis again today. HSP - recent flare, was on outpatient prednisone 60 mg and PJP prophylaxis. Will change IV steroidsto this regimen. DM A1c 9.1 - titrate SQ insulin Resume / continue appropriate home meds PT/OT/ST Nutrition - Diet Regular; Thin; Cardiac, Consistent Carbohydrate Plan of care and goals reviewed with mulitdisciplinary team at daily rounds Critical Care time spent in direct patient care: 30 minutes (excluding procedure time, if applicable) including high complexity decision making to assess, manipulate, and support vital organ system failure in this individual who has impairment of one or more vital organ systems such that there is ahigh probability of imminent or life threatening deterioration in the patient???s condition. Crescencio Galvan MD Intensive Care Medicine 09/09/19 12:50 PM 1253 Physical Therapy Notes (most recent note) Meenakshi Menjivar, PT at 09/09/19 1310 Version 1 of Patient Name: Nam Mayberry : 1950 Today's Date: 09/09/2019 Admit Date: 09/07/2019 Visit Dx: No diagnosis found. Patient Active Problem List Diagnosis ??? Edema, peripheral ??? Anxiety, generalized ??? Dyslipidemia on statin ??? Essential hypertension ??? Laryngeal spasm ??? Vertigo ??? T2DM ??? H/O Asthma ??? Perennial rhinitis ??? GERD ??? [place] esophagus ??? DELL ??? Obesity hypoventilation syndrome ??? B12 deficiency ? ? Super obesity (BMI > 50) ??? DELL on CPAP ??? Chronic anticoagulation on Xarelto ??? Hx of Henoch-Schonlein purpura ??? Hypothyroidism ??? Chronic steroid use ??? Atrial fibrillation ??? Morbid obesity with BMI of 50.0-59.9, adult ??? Acute on chronic respiratory failure with hypoxia and hypercapnia (CMS/HCC) ??? HFrEF ??? Asthma with acute exacerbation ??? CAP (community acquired pneumonia) Past 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: Diagnosis Date ??? Anxiety [...] ??? HYSTERECTOMY 1989 ??? OOPHORECTOMY Bilateral 1989 General Information Row Name 09/09/19 1409 PT Evaluation Time/Intention Document Type therapy note (daily note) -LS Mode of Treatment physical therapy -LS Row Name 09/09/19 1409 General Information Existing Precautions/Restrictions fall;oxygen therapy device and L/min -LS Row Name 09/09/19 1409 Cognitive Assessment/Intervention- PT/OT Orientation Status (Cognition) oriented x 4 -LS User Patrick (r) = Recorded By, (t) = Taken By, (c) = Cosigned By Initials Name Provider Type Meenakshi Spring, PT Physical Therapist Mobility Row Name 09/09/19 1410 Transfer Assessment/Treatment Comment (Transfers) STS x2 from recliner; vc's for hand placement. -LS Row Name 09/09/19 1410 Sit-Stand Transfer Sit-Stand Lenore (Transfers) moderate assist (50% patient effort);2 person assist;verbal cues-LS Assistive Device (Sit-Stand Transfers) walker, front-wheeled -LS Row Name 09/09/19 1410 Gait/Stairs Assessment/Training Gait/Stairs Assessment/Training gait/ambulation independence -LS Lenore Level (Gait) minimum assist (75% patient effort);2 person assist;verbal cues -LS Assistive Device (Gait) walker, front-wheeled -LS Distance in Feet (Gait) 32 -LS Deviations/Abnormal Patterns (Gait) bilateral deviations;margaret decreased;stride length decreased -LS Bilateral Gait Deviations heel strike decreased;forward flexed posture -LS Comment (Gait/Stairs) VC for upright posture, increasing heel strike and foot clearance. 1 brief seated rest break after 16 ft; followed with recliner for safety. -LS User Patrick (r) = Recorded By, (t) = Taken By, (c) = Cosigned By Initials Name Provider Type Meenakshi Spring, PT Physical Therapist Obj/Interventions Row Name 09/09/19 1412 Therapeutic Exercise Upper Extremity Range of Motion (Therapeutic Exercise) elbow flexion/extension, bilateral;shoulder abduction/adduction, bilateral;shoulder flexion/extension, bilateral -LS Lower Extremity (Therapeutic Exercise) gluteal sets;quad sets, bilateral -LS Lower Extremity Range of Motion (Therapeutic Exercise) hip abduction/adduction, bilateral;hip internal/external rotation, bilateral -LS Exercise Type (Therapeutic Exercise) AROM (active range of motion) -LS Position (Therapeutic Exercise) seated -LS Sets/Reps (Therapeutic Exercise) 09/16; rest breaks between attempts - Row Name 09/09/19 1412 Static Sitting Balance Level of Lenore (Unsupported Sitting, Static Balance) contact guard assist -LS Sitting Position (Unsupported Sitting, Static Balance) sitting in chair -LS Row Name 09/09/19 1412 Static Standing Balance Level of Lenore (Supported Standing, Static Balance) minimal assist, 75% patient effort -LS Assistive Device Utilized (Supported Standing, Static Balance) walker, rolling -LS User Patrick (r) = Recorded By, (t) = Taken By, (c) = Cosigned By Initials Name Provider Type Meenakshi Spring, PT Physical Therapist Goals/Plan No documentation. Clinical Impression Row Name 09/09/19 1414 Pain Scale: FACES Pre/Post-Treatment Pain: FACES Scale, Pretreatment 0-->no hurt -LS Pain: FACES Scale, Post-Treatment 0-->no hurt -LS Row Name 09/09/19 1414 Plan of Care Review Plan of Care Reviewed With patient -LS Progress improving -LS Outcome Summary Pt demonstrated ability to progress forward ambulation distance to 32 total ft withminx2 A, RW, 1 seated rest break. Cont to be limited by generalized fatigue and c/o dizziness in upright; gave excellent effort throughout. -LS Row Name 09/09/19 1414 Vital Signs O2 Delivery Pre Treatment nasal cannula -LS O2 Delivery Intra Treatment nasal cannula -LS O2 Delivery Post Treatment nasal cannula -LS Pre Patient Position Sitting -LS Intra Patient Position Standing -LS Post Patient Position Sitting -LS Row Name 09/09/19 1414 Positioning and Restraints Pre-Treatment Position sitting in chair/recliner -LS Post Treatment Position chair -LS In Chair notified nsg;reclined;call light within reach;on mechanical lift sling;legs elevated;heelselevated;waffle cushion;with family/caregiver;RUE elevated;LUE elevated -LS User Patrick (r) = Recorded By, (t) = Taken By, (c) = Cosigned By Initials Name Provider Type Meenakshi Spring, PT Physical Therapist Outcome Measures Row Name 09/09/19 1518 How much help from another person do you currently need... Turning from your back to your side while in flat bed without using bedrails? 2 -LS Moving from lying on back to sitting on the side of a flat bed without bedrails? 2 -LS Moving to and from a bed to a chair (including a wheelchair)? 2 -LS Standing up from a chair using your arms (e.g., wheelchair, bedside chair)? 2 -LS Climbing 3-5 steps with a railing? 1 -LS To walk in hospital room? 3 -LS AM-PAC 6 Clicks Score (PT) 12 -LS User Patrick (r) = Recorded By, (t) = Taken By, (c) = Cosigned By Initials Name Provider Type Meenakshi Spring, PT Physical Therapist PT Recommendation and Plan Planned Therapy Interventions (PT Eval): balance training, bed mobility training, gait training, home exercise program, strengthening, transfer training, patient/family education Outcome Summary/Treatment Plan (PT) Anticipated Discharge Disposition (PT): nursing home facility Plan of Care Reviewed With: patient Progress: improving Outcome Summary: Pt demonstrated ability to progress forward ambulation distance to 32 total ft with minx2 A, RW, 1 seated rest break. Cont to be limited by generalized fatigue and c/o dizziness in upright; gave excellent effort throughout. Time Calculation: PT Charges Row Name 09/09/19 1519 Time Calculation Start Time 1310 -LS PT Received On 09/09/19 - Time Calculation- PT Total Timed Code Minutes- PT 40 minute(s) -LS Timed Charges 70495 - PT Therapeutic Exercise Minutes 15 -LS 75890 - Gait Training Minutes 15 -LS 28615 - PT Therapeutic Activity Minutes 10 -LS User Patrick (r) = Recorded By, (t) = Taken By, (c) = Cosigned By Initials Name Provider Type Meenakshi Spring, PT Physical Therapist Therapy Charges for Today Code Description Service Date Service Provider Modifiers Qty 42658077803 HC PT EVAL MOD COMPLEXITY 3 09/08/2019 Meenakshi Menjivar, PT GP 1 01925738633 HC PT THERAPEUTIC ACT EA 15 MIN 09/08/2019 Meenakshi Menjivar, PT GP 1 83922921795 HC PT THER SUPP EA 15 MIN 09/08/2019 Meenakshi Menjivar, PT GP 2 09866919560 HC PT THER PROC EA 15 MIN 09/09/2019 Meenakshi Menjivar, PT GP 1 78444215082 HC GAIT TRAINING EA 15 MIN 09/09/2019 Meenakshi Menjivar, PT GP 1 79127660674 HC PT THERAPEUTIC ACT EA 15 MIN 09/09/2019 Meenakshi Menjivar, PT GP 1 [id number] PT THER PROC EA 15 MIN 09/09/2019 Meenakshi Menjivar, PT GP 1 44448500984 HC GAIT TRAINING EA 15 MIN 09/09/2019 Meenakshi Menjivar, PT GP 1 14914399444 HC PT THERAPEUTIC ACT EA 15 MIN 09/09/2019 Meenakshi Menjivar, PT GP 1 PT G-Codes Outcome Measure Options: AM-PAC 6 Clicks Basic Mobility (PT) AM-PAC 6 Clicks Score (PT): 12 Meenakshi Menjivar, PT 09/09/2019 1521 Occupational Therapy Notes (most recent note) No notes exist for this encounter. documented in this encounter Discharge Instructions * Discharge Instr - Diet* Edvin Castellanos, MS [facility]-COMPANION CAREGIVER - 09/08/2019 4:28 PM EST FEES 09/08/19 Reason for Referral Patient was referred for a FEES to assess the efficiency of his/her swallow function, rule out aspiration and make recommendations regarding safe dietary consistencies, effective compensatory strategies, and safe eating environment. Recommendations/Treatment COMPANION CAREGIVER Swallowing Diagnosis: mild, pharyngeal dysfunction Functional Impact: risk of aspiration/pneumonia Rehab Potential/Prognosis, Swallowing: good, to achieve stated therapy goals Swallow Criteria for Skilled Therapeutic Interventions Met: demonstrates skilled criteria Therapy Frequency (Swallow): 3 days per week Predicted Duration Therapy Intervention (Days): until discharge COMPANION CAREGIVER Diet Recommendation: regular textures, thin liquids Recommended Diagnostics: FEES Recommended Precautions and Strategies: no straw, small bites of food and sips of liquid, upright posture during/after eating COMPANION CAREGIVER Rec. for Method of Medication Administration: meds whole, meds crushed, with pudding or applesauce Monitor for Signs of Aspiration: yes, notify COMPANION CAREGIVER if any concerns Anticipated Dischage Disposition: unknown, anticipate therapy at next level of care Instrumental Set-up Risks/Benefits Reviewed: risks/benefits explained, patient, family, agreed to eval Nasal Entry: right: Anatomic Considerations: edema, other (see comments)(t/o hypopharynx) Utensils Used: Spoon, Cup, Straw Consistencies Trialed: thin liquids, pudding/puree, Regular textures Oral Preparation/ Oral Phase Oral Phase: WFL Pharyngeal Phase Initiation of Pharyngeal Swallow: bolus in valleculae Pharyngeal Phase: impaired pharyngeal phase of swallowing Penetration During the Swallow: thin liquids, secondary to reduced vestibular closure, other (see comments)(w/ large/consecutive straw sips) Rosenbek's Scale: thin:, 3-->Level 3 Residue: thin liquids, pudding/puree, regular Textures, diffuse within pharynx, secondary to reduced base of tongue retraction, secondary to reduced posterior pharyngeal wall stripping, secondary to reduced laryngeal elevation, secondary to reduced hyolaryngeal excursion, other (see comments)(very mild) Response to Residue: cleared residue, with spontaneous subsequent swallow Attempted Compensatory Maneuvers: bolus size, bolus presentation style Response to Attempted Compensatory Maneuvers: prevented penetration FEES Summary: COMPANION CAREGIVER FEES evaluation completed. Pt presents w/ mild pharyngeal dysphagia. Penetration during the swallow w/ large and/or consecutive sips of thin liquid via straw 2' reduced vestibular closure. Unable to fully clear w/ cued cough. No penetration/aspiration w/ controlled sips via cup. Mild diffuse pharyngeal residue w/ all consistencies tested 2' generalized weakness. Mostly cleared w/ spontaneous subsequent swallow. Recommend regular diet, thin liquids via small single cup sips. Nostraws. Meds whole or crushed in pudding/puree. Standard aspiration precautions. * Attachments The following attachments cannot be sent through Care Everywhere. * Acute Respiratory Failure Adult (Ivorian) * Home Oxygen Use Adult (Ivorian) * Hypoxia (Ivorian) documented in this encounter Medications at Time of Discharge loratadine (CLARITIN) 10 MG tablet Take 10 mg by mouth Daily. Cholecalciferol (VITAMIN D3) 5000 units capsule capsule Take 5,000 Units by mouth Daily. Ergocalciferol (VITAMIN D2 PO) Take 1.25 mg by mouth 1 (One) Time Per Week. prednisoLONE acetate (PRED FORTE) 1 % ophthalmic suspension 1 drop. 22/10 predniSONE (DELTASONE) 10 MG tablet Take 60 mg by mouth Daily. rivaroxaban (XARELTO) 20 MG tablet Take 20 mg by mouth Daily. 03/15/2 022 insulin detemir (LEVEMIR) 100 UNIT/ML injection Inject 17 Units under the skin into the appropriate area as directed Every 12 (Twelve) Hours for 30 days. 10.2 mL 0 020 pantoprazole (PROTONIX) 40 MG EC tablet Take 1 tablet by mouth Daily for 28 days. 28 tablet 0 saccharomyces boulardii (FLORASTOR) 250 MG capsule Take 2 capsules by mouth 2 (Two) Times a Day for 1 dose. 2 capsule 0 020 aspirin 81 MG EC tablet Take 81 mg by mouth Daily. 022 azelastine (ASTELIN) 0.1 % nasal spray 2 sprays into the nostril(s) as directed by provider Daily. Use in each nostril as directed 30 mL 5 9 022 budesonide-formoterol (SYMBICORT) 160-4.5 MCG/ACT inhaler Inhale 2 puffs 2 (Two) Times a Day. 3 inhaler 3 9 022 fluticasone (FLONASE) 50 MCG/ACT nasal spray 2 sprays into the nostril(s) as directed by provider Daily. 3 bottle 1 8 022 furosemide (LASIX) 40 MG tabletIndications:Essent ial hypertension,Edema, [...] 4 (Four) Hours As Needed for Wheezing. 022 levothyroxine (SYNTHROID) 75 MCG tablet Take 1 tablet by mouth Daily. 30 tablet 2 9 022 potassium chloride (MICRO-K) 10 MEQ CR capsuleIndications:Essen tial hypertension,Edema, peripheral TAKE 1 CAPSULE BY MOUTH EVERY DAY 30 capsule 5 9 022 predniSONE (DELTASONE) 5 MG tablet take 40mg [...] as of this encounter Progress Notes * Chey Lester RN - 09/15/2019 10:10 AM EST Case Management Discharge Note Final Note: Additional referrals were made with patient being accepted for skilled rehab at both [facility] and [facility]. Patient's daughter selected [facility]. Patient can transfer today.Family to provide transport. I will place Bipap settings for facility in my discharge fax. Patient is agreeable with this plan Provided post acute provider list?: Yes Post Acute Provider Lists: Snf Post Acuit Provider List: Delivered Delivered To: Patient Method of Delivery: In person Destination - Selection Complete Service Provider Request Status Selected Services Address Phone Number Fax Number [facility] [address] [id number] [phone] Chey Lester RN 09/15/2019 1006 Has a private room Patient's family to black pickler portable oxygen tank at [facility] before they transport Durable Medical Equipment No service has been selected for the patient. Dialysis/Infusion No service has been selected for the patient. Home Medical Care No service has been selected for the patient. Therapy No service has been selected for the patient. Community Resources No service has been selected for the patient. Final Discharge Disposition Code: 03 - nursing home facility (SNF) * Chey Lester RN - 09/15/2019 9:04 AM EST Continued Stay Note [facility] Patient Name: Nam Mayberry Today's Date: 09/15/2019 Admit Date: 09/07/2019 Discharge Plan Row Name 09/15/19 0902 Plan Plan Rehab placement Plan Comments Patient's daughter left message for me to include [facility] in the referral source. Referral has been given to them. [facility] is checking bed availability. I have left a message with Devin at [facility] to see what they can offer. Final Discharge Disposition Code 03 - nursing home facility (SNF) Discharge Codes No documentation. Expected Discharge Date and Time Expected Discharge Date Expected Discharge Time Sep 16, 2019 Chey Lester RN * Jose L Olguin MD - 09/14/2019 6:31 PM EST Images from the original note were not included. [facility] PROGRESS NOTE Patient Name: Nam Mayberry : 1950 Date of Admission: 09/07/2019 Primary Care Physician: Huber Grossman MD Subjective Subjective CC: Altered mental status HPI: No family in room today. She wakes up easily but is sleeping without a machine. I encouraged her to use machine while sleeping at any time. No bladder or bowel reports. No fever or chills Review of Systems Gen- No fevers, chills CV- No chest pain, palpitations Resp- No cough, dyspnea GI- No N/V/D, abd pain Objective Objective Vital Signs: Temp: [98.2 ??F (36.8 ??C)-98.6 ??F (37 ??C)] 98.6 ??F (37 ??C) Heart Rate: [74-96] 90 Resp: [18-20] 18 BP: (134-164)/(74-98) 134/74 Physical Exam: Constitutional: No acute distress, awake, alert HENT: NCAT, mucous membranes moist Respiratory: Poor inspiratory effort, no wheezes, distant breath sounds Cardiovascular: RRR, S1-S2 Gastrointestinal: Positive bowel sounds, soft, nontender, severe morbid obesity Musculoskeletal: No bilateral ankle edema Psychiatric: Appropriate affect, cooperative Neurologic: Oriented x 3, strength symmetric in all extremities, Cranial Nerves grossly intact to confrontation, speech clear Skin: No rashes Results Reviewed: Results from last 7 days Lab Units 09/11/19 0720 09/10/19 0622 09/09/19 0534 09/08/19 0642 WBC 10*3/mm3 10.35 7.49 5.69 -- HEMOGLOBIN g/dL 16.0* 15.8 15.2 -- HEMATOCRIT % 52.1* 50.1* 49.1* -- PLATELETS 10*3/mm3 164 142 130* -- PROCALCITONIN ng/mL -- -- 0.07* 0.07* Results from last 7 days Lab Units 09/12/19 0416 09/11/19 1208 09/10/19 0622 09/09/19 0534 09/08/19 0642 SODIUM mmol/L 134* 133* 137 137 139 POTASSIUM mmol/L 4.3 5.5* 3.8 3.7 4.1 CHLORIDE mmol/L 92* 91* 91* 89* 91* CO2 mmol/L 31.0* 32.0* 35.0* 37.0* 38.0* BUN mg/dL 20 23 23 25* 26* CREATININE mg/dL 0.62 0.76 0.66 0.69 0.65 GLUCOSE mg/dL 193* 369* 239* 261* 270* CALCIUM mg/dL 9.7 9.9 9.4 9.1 9.2 ALT (SGPT) U/L -- 26 29 33 36* AST (SGOT) U/L -- 14 16 21 27 PROBNP pg/mL 168.3 -- -- 314.4 255.6 Estimated Creatinine Clearance: 88.9 mL/min (by C-G formula based on SCr of 0.62 mg/dL). Microbiology Results Abnormal Procedure Component Value - Date/Time Blood Culture - Blood, Hand, Left [[id number]] Collected: 09/07/19 0844 Lab Status: Final result Specimen: Blood from Hand, Left Updated: 09/12/19 09 Blood Culture No growth at 5 days Blood Culture - Blood, Hand, Right [[id number]] Collected: 09/07/19 0838 Lab Status: Final result Specimen: Blood from Hand, Right Updated: 09/12/19 0901 Blood Culture No growth at 5 days Respiratory Culture - Sputum, Cough [[id number]] Collected: 09/09/19 1613 Lab Status: Final result Specimen: Sputum from Cough Updated: 09/11/19 1125 Respiratory Culture Scant growth (1+) Normal Respiratory Rose Gram Stain Moderate (3+) WBCs per low power field Few (2+) Epithelial cells per low power field No organisms seen Urine Culture - Urine, Urine, Catheter [[id number]] (Normal) Collected: 09/07/19 0259 Lab Status: Final result Specimen: Urine, Catheter Updated: 09/08/19 0907 Urine Culture No growth MRSA Screen, PCR - Swab, Nares [[id number]] (Abnormal) Collected: 09/07/19 1438 Lab Status: Final result Specimen: Swab from Nares Updated: 09/07/19 1610 MRSA PCR Positive Respiratory Panel, PCR - Swab, Nasopharynx [[id number]] (Abnormal) Collected: 09/07/19 1437 Lab Status: Final result Specimen: Swab from Nasopharynx Updated: 09/07/19 1604 ADENOVIRUS, PCR Not Detected Coronavirus 229E Not Detected Coronavirus HKU1 Not Detected Coronavirus NL63 Not Detected Coronavirus OC43 Not Detected Human Metapneumovirus Not Detected Human Rhinovirus/Enterovirus Not Detected Influenza B PCR Not Detected Parainfluenza Virus 1 Detected Parainfluenza Virus 2 Not Detected Parainfluenza Virus 3 Not Detected Parainfluenza Virus 4 Not Detected Bordetella pertussis pcr Not Detected Influenza A H1 2009 PCR Not Detected Chlamydophila pneumoniae PCR Not Detected Mycoplasma pneumo by PCR Not Detected Influenza A PCR Not Detected Influenza A H3 Not Detected Influenza A H1 Not Detected RSV, PCR Not Detected Bordetella parapertussis PCR Not Detected Imaging Results (Last 24 Hours) No results found for the last 24 hours. Results for orders placed in visit on 09/05/19 SCANNED - ECHOCARDIOGRAM I have reviewed the medications: Scheduled Meds: aspirin 81 mg Oral Daily azelastine 2 spray Each Nare BID budesonide 0.5 mg Nebulization BID - RT cetirizine 10 mg Oral Daily fluticasone 2 spray Nasal Daily furosemide 40 mg Oral Daily insulin detemir 17 Units Subcutaneous Q12H insulin lispro 0-14 Units Subcutaneous 4x Daily With Meals & Nightly insulin lispro 5 Units Subcutaneous TID With Meals ipratropium-albuterol 3 mL Nebulization Q4H - RT levothyroxine 75 mcg Oral Q AM nystatin Topical Q12H pantoprazole 40 mg Oral Daily potassium chloride 30 mEq Oral BID With Meals predniSONE 60 mg Oral Daily With Breakfast rivaroxaban 20 mg Oral Daily With Dinner rosuvastatin 10 mg Oral Nightly saccharomyces boulardii 500 mg Oral BID sodium chloride 10 mL Intravenous Q12H venlafaxine XR 75 mg Oral Daily vitamin D3 5,000 Units Oral Daily Continuous Infusions: PRN Meds:.calcium carbonate EX ??? dextrose ??? dextrose ??? glucagon (human recombinant) ??? sodium chloride Assessment/Plan Assessment & Plan Active Hospital Problems Diagnosis POA ??? Acute on chronic mixed hypoxemic/hypercarbic respiratory failure acquiring ventilatory support 09/04/2019 ([facility]) [J96.21, J96.22] Yes ??? E. coli UTI 09/04/2019 [N39.0, B96.20] Yes ??? History of asthma but no obstruction on PFTs. Questionable acute exacerbation this admission [J45.901] Yes ??? Mild LLL CAP. MRSA PCR positive on nasal swab and respiratory panel positive for parainfluenza virus [J18.9] Yes ??? DELL on CPAP [G47.33, Z99.89] Not Applicable ??? Hx of Henoch-Schonlein purpura diagnosed 2005 with frequent steroid use for vasculitis (last course 08/17/2019) [Z86.2] Not Applicable ??? Hypothyroidism [E03.9] Yes ??? Recent diagnosis of atrial fibrillation and placed on Xarelto [I48.91] Yes ??? Morbid obesity with BMI of 50.0-59.9, adult [E66.01, Z68.43] Not Applicable ??? GERD [K21.9] Yes ??? Obesity hypoventilation syndrome [E66.2] Yes ??? T2DM [E11.9] Yes ??? Dyslipidemia on statin [E78.5] Yes ??? Essential hypertension [I10] Yes Resolved Hospital Problems No resolved problems to display. Brief Hospital Course to date: Nam Mayberry is a 69 y.o. female transferred from [facility] to our ICU. Acute on chronic respiratory failure -She has multiple risk factors including severe morbid obesity -She appears to be reluctant to use BiPAP therapy -Evaluation today she was sleeping in her chair without machine on She had some atelectasis and effusions on imaging She has a history of obesity hypoventilation syndrome Stroke screen was positive for parainfluenza Altered mental status -Seems to be improving -[place] hypoventilating and retaining carbon dioxide She had evidence of hypercarbic respiratory failure Sleep apnea -CPAP therapy or BiPAP therapy -She may have a complex apnea Hypercarbia or CO2 retention -Appears to be a chronic problem -BiPAP would be optimal for her -Impression is that she is not really using the machine right now Morbid obesity -BMI greater than 55 Chronic benzodiazepine/chronic anxiety -Has been on Valium for years at least 3 or more -BiPAP would be the best for her ventilation Diabetes -Adjust insulin as needed Atrial fibrillation -Continue Xarelto per cardiology Discussed case with cardiology today. I discussed the use of anticoagulation with Prasanna Hyde [id number] today. DVT Prophylaxis: Anticoagulated with Xarelto Disposition: I expect the patient to be discharged to Rehab when bed available CODE STATUS: Code Status and Medical Interventions: Ordered at: 09/07/19 0302 Code Status: CPR Medical Interventions (Level of Support Prior to Arrest): Full Electronically signed by Jose L Olguin MD, 09/14/19, 6:31 PM. * Chey Lester RN - 09/14/2019 11:44 AM EST Continued Stay Note [facility] Patient Name: Nam Mayberry Today's Date: 09/14/2019 Admit Date: 09/07/2019 Discharge Plan Row Name 09/14/19 1143 Plan Plan Rehab placement Plan Comments Patient's daughter has called me this morning and would like a referral to [facility] in addition to the referrals already made. [facility] does not have any current openings. A new referral was made to [facility] today. [facility] is also reviewing the referral aswell. 13:20: Patient's daughter called me this afternoon. I updated her with the referrals I have made and have also explained the difference between skilled rehab vs acute rehab. I have also offered to make referrals to the local hospitals who have swing beds; [facility] and [facility]. Shewas not interested in this. Final Discharge Disposition Code 03 - nursing home facility (SNF) Discharge Codes No documentation. Expected Discharge Date and Time Expected Discharge Date Expected Discharge Time Sep 14, 2019 Chey Lester RN * Jose L Olguin MD - 09/13/2019 8:17 PM EST Images from the original note were not included. [facility] PROGRESS NOTE Patient Name: Nam Mayberry : 1950 Date of Admission: 09/07/2019 Primary Care Physician: Huber Grossman MD Subjective Subjective CC: Outside transfer for AMS / Respiratory Failure HPI: Downgraded from ICU. Daughter in law in room today. Feedback from team saying that family requesting cardiology. She has been on Valium 3 yrs and just recently started CPAP Review of Systems Gen- No fevers, chills CV- No chest pain, palpitations Resp- No cough, dyspnea GI- No N/V/D, abd pain Objective Objective Vital Signs: Temp: [98.2 ??F (36.8 ??C)-98.5 ??F (36.9 ??C)] 98.4 ??F (36.9 ??C) Heart Rate: [86-96] 96 Resp: [16-20] 20 BP: (131-144)/(75-89) 137/86 Physical Exam: Constitutional: No acute distress, awake, alert HENT: NCAT, mucous membranes moist Respiratory: poor inspiratory effort, no wheezes, distant breath sounds Cardiovascular: RRR, s1 and s2 Gastrointestinal: Positive bowel sounds, soft, nontender, morbidly obese abdomen Musculoskeletal: No bilateral ankle edema Psychiatric: Appropriate affect, cooperative Neurologic: Oriented x 3, strength symmetric in all extremities, Cranial Nerves grossly intact to confrontation, speech clear Skin: No rashes Results Reviewed: Results from last 7 days Lab Units 09/11/19 0720 09/10/19 0622 09/09/19 0534 09/08/19 0642 09/07/19 1027 WBC 10*3/mm3 10.35 7.49 5.69 -- < > -- HEMOGLOBIN g/dL 16.0* 15.8 15.2 -- < > -- HEMATOCRIT % 52.1* 50.1* 49.1* -- < > -- PLATELETS 10*3/mm3 164 142 130* -- < > -- PROCALCITONIN ng/mL -- -- 0.07* 0.07* -- 0.04* < > = values in this interval not displayed. Results from last 7 days Lab Units 09/12/19 0416 09/11/19 1208 09/10/19 0622 09/09/19 0534 09/08/19 0642 SODIUM mmol/L 134* 133* 137 137 139 POTASSIUM mmol/L 4.3 5.5* 3.8 3.7 4.1 CHLORIDE mmol/L 92* 91* 91* 89* 91* CO2 mmol/L 31.0* 32.0* 35.0* 37.0* 38.0* BUN mg/dL 20 23 23 25* 26* CREATININE mg/dL 0.62 0.76 0.66 0.69 0.65 GLUCOSE mg/dL 193* 369* 239* 261* 270* CALCIUM mg/dL 9.7 9.9 9.4 9.1 9.2 ALT (SGPT) U/L -- 26 29 33 36* AST (SGOT) U/L -- 14 16 21 27 PROBNP pg/mL 168.3 -- -- 314.4 255.6 Estimated Creatinine Clearance: 89.4 mL/min (by C-G formula based on SCr of 0.62 mg/dL). Microbiology Results Abnormal Procedure Component Value - Date/Time Blood Culture - Blood, Hand, Left [[id number]] Collected: 09/07/19 0844 Lab Status: Final result Specimen: Blood from Hand, Left Updated: 09/12/19 0901 Blood Culture No growth at 5 days Blood Culture - Blood, Hand, Right [[id number]] Collected: 09/07/19 0838 Lab Status: Final result Specimen: Blood from Hand, Right Updated: 09/12/19 0901 Blood Culture No growth at 5 days Respiratory Culture - Sputum, Cough [[id number]] Collected: 09/09/19 1613 Lab Status: Final result Specimen: Sputum from Cough Updated: 09/11/19 1125 Respiratory Culture Scant growth (1+) Normal Respiratory Rose Gram Stain Moderate (3+) WBCs per low power field Few (2+) Epithelial cells per low power field No organisms seen Urine Culture - Urine, Urine, Catheter [[id number]] (Normal) Collected: 09/07/19 0259 Lab Status: Final result Specimen: Urine, Catheter Updated: 09/08/19 0907 Urine Culture No growth MRSA Screen, PCR - Swab, Nares [[id number]] (Abnormal) Collected: 09/07/19 1438 Lab Status: Final result Specimen: Swab from Nares Updated: 09/07/19 1610 MRSA PCR Positive Respiratory Panel, PCR - Swab, Nasopharynx [[id number]] (Abnormal) Collected: 09/07/19 1437 Lab Status: Final result Specimen: Swab from Nasopharynx Updated: 09/07/19 1604 ADENOVIRUS, PCR Not Detected Coronavirus 229E Not Detected Coronavirus HKU1 Not Detected Coronavirus NL63 Not Detected Coronavirus OC43 Not Detected Human Metapneumovirus Not Detected Human Rhinovirus/Enterovirus Not Detected Influenza B PCR Not Detected Parainfluenza Virus 1 Detected Parainfluenza Virus 2 Not Detected Parainfluenza Virus 3 Not Detected Parainfluenza Virus 4 Not Detected Bordetella pertussis pcr Not Detected Influenza A H1 2009 PCR Not Detected Chlamydophila pneumoniae PCR Not Detected Mycoplasma pneumo by PCR Not Detected Influenza A PCR Not Detected Influenza A H3 Not Detected Influenza A H1 Not Detected RSV, PCR Not Detected Bordetella parapertussis PCR Not Detected Imaging Results (Last 24 Hours) No results found for the last 24 hours. Results for orders placed in visit on 09/05/19 SCANNED - ECHOCARDIOGRAM I have reviewed the medications: Scheduled Meds: aspirin 81 mg Oral Daily azelastine 2 spray Each Nare BID budesonide 0.5 mg Nebulization BID - RT cetirizine 10 mg Oral Daily fluticasone 2 spray Nasal Daily furosemide 40 mg Oral Daily insulin detemir 15 Units Subcutaneous Q12H insulin lispro 0-14 Units Subcutaneous 4x Daily With Meals & Nightly ipratropium-albuterol 3 mL Nebulization Q4H - RT levothyroxine 75 mcg Oral Q AM nystatin Topical Q12H pantoprazole 40 mg Oral Daily potassium chloride 30 mEq Oral BID With Meals predniSONE 60 mg Oral Daily With Breakfast rivaroxaban 20 mg Oral Daily With Dinner rosuvastatin 10 mg Oral Nightly saccharomyces boulardii 500 mg Oral BID sodium chloride 10 mL Intravenous Q12H venlafaxine XR 75 mg Oral Daily vitamin D3 5,000 Units Oral Daily Continuous Infusions: PRN Meds:.calcium carbonate EX ??? dextrose ??? dextrose ??? glucagon (human recombinant) ??? sodium chloride Assessment/Plan Assessment & Plan Active Hospital Problems Diagnosis POA ??? Acute on chronic mixed hypoxemic/hypercarbic respiratory failure acquiring ventilatory support 09/04/2019 ([facility]) [J96.21, J96.22] Yes ??? E. coli UTI 09/04/2019 [N39.0, B96.20] Yes ??? History of asthma but no obstruction on PFTs. Questionable acute exacerbation this admission [J45.901] Yes ??? Mild LLL CAP. MRSA PCR positive on nasal swab and respiratory panel positive for parainfluenza virus [J18.9] Yes ??? DELL on CPAP [G47.33, Z99.89] Not Applicable ??? Hx of Henoch-Schonlein purpura diagnosed 2005 with frequent steroid use for vasculitis (last course 08/17/2019) [Z86.2] Not Applicable ??? Hypothyroidism [E03.9] Yes ??? Recent diagnosis of atrial fibrillation and placed on Xarelto [I48.91] Yes ??? Morbid obesity with BMI of 50.0-59.9, adult [E66.01, Z68.43] Not Applicable ??? GERD [K21.9] Yes ??? Obesity hypoventilation syndrome [E66.2] Yes ??? T2DM [E11.9] Yes ??? Dyslipidemia on statin [E78.5] Yes ??? Essential hypertension [I10] Yes Resolved Hospital Problems No resolved problems to display. Brief Hospital Course to date: Nam Mayberry is a 69 y.o. female who [facility] level [facility] care. Altered Mental Status - multifactorial issue - severe morbid obesity - hypercarbic respiratory failure Acute on Chronic Respiratory Failure - Obesity Hypoventilation Syndrome - atelectasis on CXR - effusions on CT - Parainfluenza Sleep Apnea - started on CPAP therapy recently for DELL - may have complex apnea Chronic CO2 Retention - needs BiPAP Morbid Obesity - BMI >55 - need BiPAP as needed and at night Chronic Anxiety / Chronic Benzodiazapine Use - has been on Valium for 3 yrs or more - likely need BiPAP to assist with ventilation DM - adjust insulin today A Fib - Xarelto Family request for Cardiology evaluation about anticoagulation DVT Prophylaxis: Xarelto Disposition: I expect the [facility] CODE STATUS: Code Status and Medical Interventions: Ordered at: 09/07/19 0302 Code Status: CPR Medical Interventions (Level of Support Prior to Arrest): Full Electronically signed by Jose L Olguin MD, 09/13/19, 8:18 PM. * Chey Lester RN - 09/13/2019 1:28 PM EST Continued Stay Note [facility] Patient Name: aNm Mayberry Today's Date: 09/13/2019 Admit Date: 09/07/2019 Discharge Plan Row Name 09/13/19 1325 Plan Plan Skilled placement Plan Comments I have update patient's daughter, Caitlyn Nunez to let her know [facility] cannot offer a bed. Her next choice of facility is [facility]. I have asked her to choose another option if in the event they are full. She plans to do this. 15:00: Patient's daughter has also selected [facility]. Referral has been given to them. Final Discharge Disposition Code 03 - nursing home facility (SNF) Discharge Codes No documentation. Expected Discharge Date and Time Expected Discharge Date Expected Discharge Time Sep 14, 2019 Chey Lester RN * Shae VillegasJAKE - 09/12/2019 8:08 PM EST Nutrition Services Patient Name: Nam Mayberry Date of : 1950 Admit Date: 09/07/2019 Clinical Nutrition Nutrition Assessment Reason for Visit: MDR Patient Name: Nam Mayberry Date of : 1950 Date of Encounter: 09/12/19 8:08 PM Admission date: 09/07/2019 Comments: Eating well Nutrition Assessment Hospital Problem List Acute on chronic mixed hypoxemic/hypercarbic respiratory failure acquiring ventilatory support 09/04/2019 ([facility]) Dyslipidemia on statin Essential hypertension T2DM GERD Obesity hypoventilation syndrome DELL on CPAP Hx of Henoch-Schonlein purpura diagnosed 2004 with frequent steroid use for vasculitis (last qunnys1608/17/2019) Hypothyroidism Recent diagnosis of atrial fibrillation and placed on Xarelto Morbid obesity with BMI of 50.0-59.9, adult History of asthma but no obstruction on PFTs. Questionable acute exacerbation this admission Mild LLL CAP. MRSA PCR positive on nasal swab and respiratory panel positive for parainfluenza virus E. coli UTI 09/04/2019 Applicable PMH/PSxH: PMH: She has a past medical history of Anxiety, Arthritis, Atrial fibrillation (CMS/HCC), Cataract,Cellulitis, COPD (chronic obstructive pulmonary disease) (CMS/HCC), Depression, Diabetes mellitus (CMS/HCC), Disease of thyroid gland, GERD (gastroesophageal reflux disease), HSP (Henoch Schonlein purpura) (CMS/HCC), Hyperlipidemia, Hypertension, Sleep apnea, and Vasculitis (CMS/HCC). PSxH: She has a past surgical history that includes Oophorectomy (Bilateral, 1989); Cataract extraction (Left, 2018); and Hysterectomy (1989). Other: Passed COMPANION CAREGIVER exam but w instruction re intake strategy - sips etc. Reported/Observed/Food/Nutrition Related History: Pt rpt eating well. Gives some prefs. Anthropometrics Height: 157.5 cm (62 ) Last filed wt: Weight: (!) 144 kg (317 lb 3.9 oz) (09/10/19 0600) Weight Method: Bed scale BMI: BMI (Calculated): 52.8 Obese Class III extreme obesity: > or equal to 40kg/m2 [place] Body Weight (IBW) (kg): 50.43 Labs reviewed Yes. Medications reviewed Pertinent: PPI, Insulin O2 Steroids Current Nutrition Prescription PO: Diet Regular; Thin; Cardiac, Consistent Carbohydrate Intake: 79% of 6 meals Nutrition Diagnosis 09/12 Problem No nutrition diagnosis at this time Etiology Signs/Symptoms Nutrition Intervention Follow treatment progress, Care plan reviewed, Advise alternate selection, Menu provided, Menu adjusted Goal: General: Nutrition support treatment PO: Maintain intake Monitoring/Evaluation: PO intake, Pertinent labs, Symptoms Will Continue to follow per protocol Shae Villegas RD, Time Spent: 20 min Electronically signed by: Shae Villegas RD 09/12/19 8:08 PM * Chey Lester RN - 09/12/2019 2:46 PM EST Continued Stay Note [facility] Patient Name: Nam Mayberry Today's Date: 09/12/2019 Admit Date: 09/07/2019 Discharge Plan Row Name 09/12/19 1444 Plan Plan skilled placement Provided post acute provider list? Yes Post Acute Provider Lists Snf Post Acuite Provider List Delivered Delivered To Patient Method of Delivery In person Patient/Family in Agreement with Plan yes Plan Comments Patient out of the ICU today and on to telemetry. Patient's first choice for subacute rehab is [facility]; however, no beds available. Patient is requesting transfer to one of their sister facilities in [place], [facility]. I have given Chey West at [facility] the referral and she will get back with me. I also encouraged patient to consider [facility], possible acute pulmonary rehab.She will consider this. Plan: Pursue rehab. Await word from [facility]. I asked patient and the daughter to come up with another SNF option, in the event [facility] does not offer bed, the SNF list was given with instructions to review [facility] compare list. Final Discharge Disposition Code 03 - nursing home facility (SNF) Discharge Codes No documentation. Expected Discharge Date and Time Expected Discharge Date Expected Discharge Time Sep 14, 2019 Chey Lester, RN * Hugh Arriaga, - 09/12/2019 12:42 PM EST Intensive Care Follow-up Hospital: LOS: 5 days Ms. Nam Mayberry, 69 y.o. female is followed for: Acute on chronic respiratory failure with hypoxia and hypercapnia ([facility]) History of present illness: 69-year-old white female remote smoker with a history of morbid obesity, OHS, DELL on home CPAP, history of asthma but no obstruction on PFTs, recent diagnosis of atrial fibrillation for which she wasplaced on Xarelto, history of Henoch- Augusto??nlein purpura since 2005 and associated vasculitis treated with intermittent steroid courses, history of recurrent lower extremity cellulitis, hypertension, hyperlipidemia, diabetes mellitus, hypothyroidism on replacement, and GERD. ?? Patient was admitted to [facility] 09/04/2019 for altered mental status and found to be in acute on chronic mixed hypoxemic/hypercarbic respiratory failure for which she was intubated. ??Diabetes was also poorly controlled and she had an E. coli UTI. ??She was treated in a standard manner and placed on broad-spectrum antimicrobial coverage because of a possible pneumonia as well as a documented E. coli UTI. ??Was unable to be weaned and extubated so was transferred to [facility] 09/07/2019. ??Wasextubated the day of transfer and has done reasonably well since that time. ?? Subjective Interval History: Patient doing well this morning. She has been weaned down to her home oxygen which is 2 L. Remains on Rocephin and Zithromax with documentation only of an MRSA PCR from nares. Respiratory panel was however positive for parainfluenza. She remains on 60 mg of prednisone daily which was started by herrheumatologist for Henoch-Augusto??nlein purpura. Also remains on Xarelto for her atrial fibrillation. She is afebrile and normotensive. Plan is to complete antibiotic therapy on 09/13/2019. The patient's past medical, surgical and social history were reviewed and updated in [facility] as appropriate. Objective Infusions: Medications: aspirin 81 mg Oral Daily azelastine 2 spray Each Nare BID budesonide 0.5 mg Nebulization BID - RT cefTRIAXone 1 g Intravenous Q24H cetirizine 10 mg Oral Daily doxycycline 100 mg Oral Q12H fluticasone 2 spray Nasal Daily furosemide 40 mg Oral Daily insulin detemir 15 Units Subcutaneous Q12H insulin lispro 0-14 Units Subcutaneous 4x Daily With Meals & Nightly ipratropium-albuterol 3 mL Nebulization Q4H - RT levothyroxine 75 mcg Oral Q AM nystatin Topical Q12H pantoprazole 40 mg Oral Daily potassium chloride 30 mEq Oral BID With Meals predniSONE 60 mg Oral Daily With Breakfast rivaroxaban 20 mg Oral Daily With Dinner rosuvastatin 10 mg Oral Nightly saccharomyces boulardii 500 mg Oral BID sodium chloride 10 mL Intravenous Q12H venlafaxine XR 75 mg Oral Daily vitamin D3 5,000 Units Oral Daily I reviewed the patient's medications. Vital Sign Min/Max for last 24 hours Temp Min: 97.8 ??F (36.6 ??C) Max: 98.8 ??F (37.1 ??C) BP Min: 133/71 Max: 158/91 Pulse Min: 75 Max: 96 Resp Min: 16 Max: 24 SpO2 Min: 88 % Max: 95 % Flow (L/min) Min: 2 Max: 3 Input/Output for last 24 hour shift 09/11 0701 - 09/12 0700 In: 1034 [I.V.:684] Out: 2250 [Urine:2250] GENERAL : NAD, conversant RESPIRATORY/THORAX : normal respiratory effort and no intercostal retractions, clear to auscultation bilaterally CARDIOVASCULAR : Normal S1/S2, RRR. No lower ext edema. GASTROINTESTINAL : Soft, NT/ND. BS x 4 normoactive. No hepatosplenomegaly. MUSCULOSKELETAL : No cyanosis, clubbing, or ischemia NEUROLOGICAL: alert and oriented to person, place and time PSYCHOLOGICAL : Appropriate affect Results from last 7 days Lab Units 09/11/19 0720 09/10/19 0622 09/09/19 0534 WBC 10*3/mm3 10.35 7.49 5.69 HEMOGLOBIN g/dL 16.0* 15.8 15.2 PLATELETS 10*3/mm3 164 142 130* Results from last 7 days Lab Units 09/12/19 0416 09/11/19 1208 09/10/19 0622 09/09/19 0534 09/08/19 0642 SODIUM mmol/L 134* 133* 137 137 139 POTASSIUM mmol/L 4.3 5.5* 3.8 3.7 4.1 CO2 mmol/L 31.0* 32.0* 35.0* 37.0* 38.0* BUN mg/dL 25* 26* CREATININE mg/dL 0.62 0.76 0.66 0.69 0.65 MAGNESIUM mg/dL -- -- 2.0 2.0 2.2 PHOSPHORUS mg/dL -- -- 3.4 3.3 3.1 GLUCOSE mg/dL 193* 369* 239* 261* 270* Estimated Creatinine Clearance: 90.6 mL/min (by C-G formula based on SCr of 0.62 mg/dL). Results from last 7 days Lab Units 09/11/19 0806 PH, ARTERIAL pH units 7.448 PCO2, ARTERIAL mm Hg 54.1* PO2 ART mm Hg 57.4* I reviewed the patient's new clinical results. I reviewed the patient's new imaging results/reports including actual images and agree with reports. Imaging Results (Last 24 Hours) Procedure Component Value Units Date/Time XR Chest 2 View [[id number]] Collected: 09/11/19812 Updated: 09/11/19 2322 Narrative: EXAMINATION: XR CHEST 2 VIEWS - 09/11/2019 INDICATION: Follow-up left lower lobe infiltrate. COMPARISON: 09/09/2019 FINDINGS: Left basilar atelectasis appears a little less dense. Left upper lung is better expanded. Right lung remains grossly clear. No pneumothorax or effusion is seen. The heart is mildly enlarged. Vasculature appears normal. Impression: Improving left basilar atelectasis. DICTATED: 09/11/2019 EDITED/ls : 09/11/2019 This report was finalized on 09/11/2019 11:[address] Clay Rodriguez MD. Assessment/Plan Impression Acute on chronic mixed hypoxemic/hypercarbic respiratory failure acquiring ventilatory support 09/04/2019 ([facility]) Dyslipidemia on statin Essential hypertension T2DM GERD Obesity hypoventilation syndrome DELL on CPAP Hx of Henoch-Schonlein purpura diagnosed 2005 with frequent steroid use for vasculitis (last [id number]/17/2019) Hypothyroidism Recent diagnosis of atrial fibrillation and placed on Xarelto Morbid obesity with BMI of 50.0-59.9, adult History of asthma but no obstruction on PFTs. Questionable acute exacerbation this admission Mild LLL CAP. MRSA PCR positive on nasal swab and respiratory panel positive for parainfluenza virus E. 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 ?? Patient was admitted to [facility] 09/04/2019 for altered mental status and found to be in acute on chronic mixed hypoxemic/hypercarbic respiratory failure for which she was intubated. ??Diabetes was also poorly controlled and she had an E. coli UTI. ??She was treated in a standard manner and placed on broad-spectrum antimicrobial coverage because of a possible pneumonia as well as a documented E. coli UTI. ??Was unable to be weaned and extubated so was transferred to [facility] 09/07/2019. ??Wasextubated the day of transfer and has done reasonably well since that time. 1. Continue antibiotics 1 more day therapy 2. Suspect the patient will be able for discharge tomorrow, plan is to go to a SNF 3. Continue CPAP at night 4. Continue oxygen at home level of 2 L 5. Continue current insulin regimen will adjust as needed 6. Mechanical DVT prophylaxis 7. Continue PPI 8. We will continue the prednisone at 60 mg daily as this is currently being managed by her personnel psychologist for Henoch-Augusto??nlein purpura , and per pharmacy has had frequent refills. 9. Floor orders have been placed Plan of care and goals reviewed with mulitdisciplinary/antibiotic stewardship team during rounds. I discussed the patient's findings and my recommendations with patient and nursing staff Manish Arriaga DO Pulmonary, Critical care and Sleep Medicine * Ami Lombardo RN - 09/12/2019 10:41 AM EST Continued Stay Note [facility] Patient Name: Nam Mayberry Today's Date: 09/12/2019 Admit Date: 09/07/2019 Discharge Plan Row Name 09/12/19 1040 Plan Plan SNF Plan Comments Spoke with Ronen with [facility]. [facility] is reviewing referral but currently does not have a bed and no planned discharges. CM will speak with patient again about another facility. Per discussion in MDR patient would be ready tomorrow. CM will continue to follow. Discharge Codes No documentation. Expected Discharge Date and Time Expected Discharge Date Expected Discharge Time Sep 14, 2019 1100 Spoke with patient at bedside. Patient wishes to speak with her daughter before deciding on another facility. Patient states her daughter is currently at work and would CM come back later. Ami Lombardo RN * Luis Lemus MD - 09/11/2019 11:11 AM EST Collections Assistant Note 09/11/2019 Hospital Day: 4 * No surgery found * ICU Stays Timeline Dates and times are displayed in the time zone of the admission Hospital Admission: 09/07/19147 - Current ICU stays: 1 In Date/Time Event Department ICU Stay Duration 09/07/19147 Admission [facility] ICU 4 days 9 hours 23 minutes Ms. Nam Mayberry, 69 y.o. 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 Questionable acute exacerbation this admission Mild LLL CAP. MRSA PCR positive on nasal swab and respiratory panel positive for parainfluenza virus E. 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 ?? Patient was admitted to [facility] 09/04/2019 for altered mental status and found to be in acute on chronic mixed hypoxemic/hypercarbic respiratory failure for which she was intubated. Diabetes was also poorly controlled and she had an E. coli UTI. She was treated in a standard manner and placed on broad- spectrum antimicrobial coverage because of a possible pneumonia as well as a documented E. coli UTI. Was unable to be weaned and extubated so was transferred to [facility] 09/07/2019. Was extubated the day of transfer and has done reasonably well since that time. ?? Requiring 3.5 l of oxygen to maintain O2 sat of 90% and continues to use BiPAP at night (uses CPAP at home). ABGs today on 3 L reveals pH 7.45, PCO2 54, PO2 57.4. Remains on Rocephin and Zithromax with documentation only of an MRSA PCR from nares. Respiratory panel was however positive for parainfluenza. She remains on 60 mg of prednisone daily which was started by her personnel psychologist for Henoch-Augusto??nlein purpura. Also remains on Xarelto for her atrial fibrillation. Denies dyspnea, with apnea, chest pain, cough, purulent sputum production, hemoptysis, or pleuritic pain. Remains profoundly weak and mobilization as a problem for which she will require rehab facility in [place]. ROS: Per subjective, all other systems reviewed and were negative. The patient's relevant PMH, PSH, FH, and SH were reviewed and updated in Epic as appropriate. Allergies and Medications reviewed. OBJECTIVE BP 137/83 Pulse 86 Temp 98 ??F (36.7 ??C) (Oral) Resp 20 Ht 157.5 cm (62 ) Wt (!) 144 kg (317 lb 3.9 oz) SpO2 90% BMI 58.02 kg/m?? Flow (L/min): 3 Flowsheet Rows First Filed Value Admission Height 157.5 cm (62 ) Documented at 09/07/2019 0149 Admission Weight 131 kg (288 lb 12.8 oz) Documented at 09/07/2019 0149 Intake & Output (last day) 09/10 07 - 09/11 0700 09/11 07 - 09/12 0700 P.O. 480 I.V. (mL/kg) 644 (4.5) IV Piggyback 100 250 Total Intake(mL/kg) 580 (4) 894 (6.2) Urine (mL/kg/hr) 2300 (0.7) Stool 0 Total Output 2300 Net -1720 +894 Stool Unmeasured Occurrence 1 x Exam: General Exam: Obese white female propped up in bed in NAD HEENT: Pupils equal and reactive. Nose and throat clear. Neck: Supple, no JVD, thyromegaly, or adenopathy Lungs: Diffusely diminished breath sounds without wheezes, rales, or rhonchi Cardiovascular: RRR without murmurs or gallops. HR 80 bpm Abdomen: Soft nontender without organomegaly or masses. Morbidly obese and rectal: Deferred. Extremities: No cyanosis or clubbing. Trace lower extremity edema with venous stasis skin changes. Neurologic: Symmetric strength but diffusely weak. No focal deficits. Alert and oriented PA and lateral CXR 09/11/2019: Mild cardiomegaly. Right lung clear. Left upper lobe clear. Persistentmild atelectasis/infiltrate left base which is somewhat improved. Results from last 7 days Lab Units 09/11/19 0720 09/10/19 0622 09/09/19 0534 WBC 10*3/mm3 10.35 7.49 5.69 HEMOGLOBIN g/dL 16.0* 15.8 15.2 HEMATOCRIT % 52.1* 50.1* 49.1* PLATELETS 10*3/mm3 164 142 130* Results from last 7 days Lab Units 09/10/19 0622 09/09/19 0534 SODIUM mmol/L 137 137 POTASSIUM mmol/L 3.8 3.7 CHLORIDE mmol/L 91* 89* CO2 mmol/L 35.0* 37.0* BUN mg/dL 23 25* CREATININE mg/dL 0.66 0.69 GLUCOSE mg/dL 239* 261* CALCIUM mg/dL 9.4 9.1 Results from last 7 days Lab Units 09/10/19 0622 09/09/19 0534 09/08/19 0642 MAGNESIUM mg/dL 2.0 2.0 2.2 PHOSPHORUS mg/dL 3.4 3.3 3.1 Results from last 7 days Lab Units 09/10/19 0622 09/09/19 0534 09/08/19 0642 ALK PHOS U/L 49 47 49 BILIRUBIN mg/dL 0.5 0.4 0.3 ALT (SGPT) U/L 29 33 36* AST (SGOT) U/L 16 21 27 Lab Results Component Value Date SEDRATE 23 03/25/2019 Lab Results Component Value Date BNP 24.1 07/21/2019 No results found for: CKTOTAL, CKMB, CKMBINDEX, TROPONINI, TROPONINT Lab Results Component Value Date TSH 1.000 09/07/2019 Lab Results Component Value Date LACTATE 1.3 09/07/2019 No results found for: CORTISOL Results from last 7 days Lab Units 09/11/19 0806 09/08/19 0353 09/07/19 0416 PH, ARTERIAL pH units 7.448 7.486* 7.408 PCO2, ARTERIAL mm Hg 54.1* 57.8* 61.1* PO2 ART mm Hg 57.4* 89.2 118.0* HCO3 ART mmol/L 37.3* 43.6* 38.5* FIO2 % 32 55 70 I reviewed the patient's results, images and medication. 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 Questionable acute exacerbation this admission Mild LLL CAP. MRSA PCR positive on nasal swab and respiratory panel positive for parainfluenza virus E. coli UTI 09/04/2019 Dyslipidemia on statin Essential hypertension T2DM Hx of Henoch-Schonlein purpura diagnosed 2004 with frequent steroid use for vasculitis (last [id number]/17/2019) GERD Hypothyroidism DISCUSSION: Gas exchange marginal but adequate on 3 L of nasal oxygen. We need to continue BiPAP atnight to rest her diaphragms. Potassium 3.8 and she has a metabolic alkalosis in addition to respiratory acidosis. The former will reduce her respiratory drive so I want to push potassium up to 4.5. She had a good response to diuretic without any increased BUN. PLAN 1. Continue twice daily potassium replacement 2. Give extra potassium today and try to increase potassium to 4.5. 3. Continue PT OT and await transfer to [facility] facility 4. She remains on 60 mg of prednisone daily started by her personnel psychologist for her Henoch-Augusto??nleinpurpura. I think this should begin to be tapered and I have asked them to contact the personnel psychologist or give us their name so this decision can be made. They tell me she had not been taking her steroids at all for a few days prior to admission and that may have played a role in her decompensation. 5. Continue Xarelto 6. Discontinue Zithromax (has received 5 days) 7. Continue oral doxycycline 8. Suspect she can be transferred to telemetry and will ask hospitalist to assume attending role Plan of care and goals reviewed with mulitdisciplinary team at daily rounds. I discussed the patient's findings and my recommendations with patient, family and nursing staff High level of risk due to: severe exacerbation of chronic illness, illness with threat to life or bodily function and parenteral controlled substances. Time spent Critical care 25 min (It does not include procedure time). Luis Lemus MD Intensive Care Medicine 09/11/19 11:11 AM * Luis Lemus MD - 09/10/2019 12:24 PM EST Collections Assistant Note 09/10/2019 Hospital Day: 3 * No surgery found * ICU Stays Timeline Hospital Admission: 09/07/19 0148 - Current ICU stays: 1 In Date/Time Event Department ICU Stay Duration 09/07/19 0148 Admission [facility] 2A ICU 3 days 10 hours 36 minutes Ms. Nam Mayberry, 69 y.o. 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 Questionable acute exacerbation this admission Mild LLL CAP. MRSA PCR positive on nasal swab and respiratory panel positive for parainfluenza virus E. coli UTI 09/04/2019 Dyslipidemia on statin Essential hypertension T2DM Hx of Henoch-Schonlein purpura diagnosed 2004 with frequent steroid use for vasculitis (last [id number]/17/2019) GERD Hypothyroidism SUBJECTIVE 69-year-old white female remote smoker with a history of morbid obesity, OHS, DELL on home CPAP, history of asthma but no obstruction on PFTs, recent diagnosis of atrial fibrillation for which she wasplaced on Xarelto, history of Henoch- Augusto??nlein purpura since 2004 and associated vasculitis treated with intermittent steroid courses, history of recurrent lower extremity cellulitis, hypertension, hyperlipidemia, diabetes mellitus, hypothyroidism on replacement, and GERD. Admitted to [facility] 09/04/2019 for altered mental status and found to be in acute on chronic mixed hypoxemic/hypercarbic respiratory failure for which she was intubated. Diabetes was also poorly controlled and she had an E. coli UTI. She was treated in a standard manner and placed on broad-spectrum antimicrobial coverage because of a possible pneumonia as well as a documented E. coli UTI. Was unable to be weaned and extubated so was transferred to [facility] 09/07/2019. Was extubated the day of transfer and has done reasonably well since that time. Now oxygenating on 2 L nasal oxygen and is using BiPAP at night. Remains on Rocephin and Zithromax but the only thing documented is a positive MRSA PCR from her nares and respiratory panel is positive for parainfluenza. She remains on 60 mg of prednisone daily as well as Xarelto. ROS: Per subjective, all other systems reviewed and were negative. The patient's relevant PMH, PSH, FH, and SH were reviewed and updated in [facility] as appropriate. Allergies and Medications reviewed. OBJECTIVE BP 131/67 Pulse 89 Temp 98.4 ??F (36.9 ??C) (Axillary) Resp 20 Ht 157.5 cm (62 ) Wt (!) 144 kg (317 lb 3.9 oz) SpO2 (!) 95% BMI 58.02 kg/m?? Flow (L/min): 2 liters of nasal oxygen Flowsheet Rows First Filed Value Admission Height 157.5 cm (62 ) Documented at 09/07/2019 0149 Admission Weight 131 kg (288 lb 12.8 oz) Documented at 09/07/2019 0149 Intake & Output (last day) 09/09 0701 - 09/10 0700 09/10 07 - 09/11 0700 P.O. I.V. (mL/kg) IV Piggyback 100 Total Intake(mL/kg) 100 (0.7) Urine (mL/kg/hr) 3150 (0.9) 1000 (1.2) Stool 0 Total Output 3150 1000 Net -3150 -900 Urine Unmeasured Occurrence 3 x Stool Unmeasured Occurrence 8 x Exam: General Exam: Morbidly obese white female propped up in bed in NAD HEENT: Pupils equal and reactive. Nose and throat clear. Neck: Supple, no JVD, thyromegaly, or adenopathy Lungs: Diminished breath sounds. Few scattered rhonchi and an isolated wheeze. Cardiovascular: RRR without murmurs or gallops. HR 88 bpm Abdomen: Soft nontender without organomegaly or masses. Junior obese and rectal: Deferred. Extremities: No cyanosis clubbing edema but some venous stasis changes of the skin Neurologic: Symmetric strength. No focal deficits. Alert and oriented Chest X-Ray 09/09/2019: Left lower lobe patchy infiltrate/atelectasis persists Results from last 7 days Lab Units 09/10/19 0622 09/09/19 0534 09/08/19 0433 WBC 10*3/mm3 7.49 5.69 6.29 HEMOGLOBIN g/dL 15.8 15.2 14.9 HEMATOCRIT % 50.1* 49.1* 49.0* PLATELETS 10*3/mm3 142 130* 127* Results from last 7 days Lab Units 09/10/19 0622 09/09/19 0534 SODIUM mmol/L 137 137 POTASSIUM mmol/L 3.8 3.7 CHLORIDE mmol/L 91* 89* CO2 mmol/L 35.0* 37.0* BUN mg/dL 23 25* CREATININE mg/dL 0.66 0.69 GLUCOSE mg/dL 239* 261* CALCIUM mg/dL 9.4 9.1 Results from last 7 days Lab Units 09/10/19 0622 09/09/19 0534 09/08/19 0642 MAGNESIUM mg/dL 2.0 2.0 2.2 PHOSPHORUS mg/dL 3.4 3.3 3.1 Results from last 7 days Lab Units 09/10/19 0622 09/09/19 0534 09/08/19 0642 ALK PHOS U/L 49 47 49 BILIRUBIN mg/dL 0.5 0.4 0.3 ALT (SGPT) U/L 29 33 36* AST (SGOT) U/L 16 21 27 Lab Results Component Value Date SEDRATE 23 03/25/2019 Lab Results Component Value Date BNP 24.1 07/21/2019 No results found for: CKTOTAL, CKMB, CKMBINDEX, TROPONINI, TROPONINT Lab Results Component Value Date TSH 1.000 09/07/2019 Lab Results Component Value Date LACTATE 1.3 09/07/2019 No results found for: CORTISOL Results from last 7 days Lab Units 09/08/19 0353 09/07/19 0416 PH, ARTERIAL pH units 7.486* 7.408 PCO2, ARTERIAL mm Hg 57.8* 61.1* PO2 ART mm Hg 89.2 118.0* HCO3 ART mmol/L 43.6* 38.5* FIO2 % 55 70 I reviewed the patient's results, images and medication. 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 Questionable acute exacerbation this admission Mild LLL CAP. MRSA PCR positive on nasal swab and respiratory panel positive for parainfluenza virus E. coli UTI 09/04/2019 Dyslipidemia on statin Essential hypertension T2DM Hx of Henoch-Schonlein purpura diagnosed 2004 with frequent steroid use for vasculitis (last [id number]/17/2019) GERD Hypothyroidism DISCUSSION: Gas exchange has improved with less FiO2 requirement. Chest x-ray yesterday showed persistent left lower lobe infiltrate but is on appropriate antimicrobial therapy. Is allergic to sulfa,so the order for Bactrim was discontinued. She does have a positive PCR for MRSA in her nares and her present antimicrobial therapy does not cover MRSA. I do not think it is a pathogen, to but to be on the safe side we will add doxycycline which usually does cover it. Unfortunately all we have is apositive PCR for MRSA without a culture and sensitivity. She appears stable enough for transfer to telemetry so we will do so and asked the hospitalist to assume attending role. She will need pulmonary rehab or an assisted living/skilled care location until her overall strength improves and she cancare for herself. PLAN 1. Transfer to telemetry I will asked the hospitalist to assume attending role 2. Change IV Lasix to twice daily 3. Would push potassium to keep it greater than or equal to 4.5 to avoid metabolic alkalosis which might decrease respiratory drive 4. Follow-up potassium, BUN, creatinine in a.m. 6. Good PA and lateral chest x-ray in a.m. 7. Dietitian consult for advice on weight loss 8. Continue nocturnal BiPAP 9. Repeat ABG in a.m. when she is awake, off BiPAP, and up in a chair 10. Continue Xarelto in view of her PAF 11. Empirically begin doxycycline for MRSA PCR 12. Would complete 7 days of parenteral therapy, then send out on doxycycline alone for another 10 days We will be available as needed after transfer to the floor Plan of care and goals reviewed with mulitdisciplinary team at daily rounds. I discussed the patient's findings and my recommendations with patient, family and nursing staff High level of risk due to: severe exacerbation of chronic illness, illness with threat to life or bodily function and parenteral controlled substances. Time spent Critical care 35 min (It does not include procedure time). Luis Lmeus MD Intensive Care Medicine 09/10/19 12:54 PM * Ami Lombardo RN - 09/09/2019 4:15 PM EST Continued Stay Note [facility] [place] Patient Name: Nam Mayberry Today's Date: 09/09/2019 Admit Date: 09/07/2019 Discharge Plan Row Name 09/09/19 1614 Plan Plan SNF Patient/Family in Agreement with Plan yes Plan Comments Spoke with patient and daughter at bedside. Patient and daughter are in agreement to referral to [facility]. referral faxed. CM will continue to follow. Discharge Codes No documentation. Expected Discharge Date and Time Expected Discharge Date Expected Discharge Time Sep 14, 2019 Ami Lombardo RN * Crescencio Galvan MD - 09/09/2019 12:50 PM EST CORPORATE TRAVEL CONSULTANT / PULMONARY FOLLOW UP NOTE Hospital: LOS: 2 days Ms. Nam Mayberry, 69 y.o. female is followed for: Acute on chronic respiratory failure with hypoxia and hypercapnia (CMS/HCC) Dyslipidemia on statin Essential hypertension T2DM GERD Obesity hypoventilation syndrome DELL on CPAP Chronic anticoagulation on Xarelto Hx of Henoch-Schonlein purpura Hypothyroidism Chronic steroid use Atrial fibrillation Morbid obesity with BMI of 50.0-59.9, adult HFrEF Asthma with acute exacerbation CAP (community acquired pneumonia) SUBJECTIVE Oxygenation improving, diuresing well The patient's relevant past medical, surgical, family, and social history were reviewed Allergies and medications were reviewed ROS: Per subjective, all other systems were reviewed and were negative OBJECTIVE Vital Sign Min/Max for last 24 hours: Temp Min: 97.7 ??F (36.5 ??C) Max: 98.3 ??F (36.8 ??C) BP Min: 105/56 Max: 184/105 Pulse Min: 56 Max: 82 Resp Min: 18 Max: 24 SpO2 Min: 88 % Max: 95 % No data recorded Physical Exam: General Appearance: Conversant, in no acute distress Eyes: No scleral icterus or pallor, pupils normal Ears, Nose, Mouth, Throat: Atraumatic, oropharynx clear Neck: Trachea midline, thyroid normal Respiratory: Clear to auscultation bilaterally, normal effort, no tenderness to palpation Cardiovascular: Regular rate and rhythm, no murmurs, no peripheral edema, no thrill Gastrointestinal: Soft, non-tender, non-distended, no hepatosplenomegaly Skin: Normal temperature, no rash Psychiatric: No agitation Neuro: No new focal neurologic deficits observed Telemetry: Hemodynamics: CVP: PAP: PAOP: CO: CI: SVI: SVR: SpO2: 91 % SpO2 Min: 88 % Max: 95 % Device: Flow Rate: No data recorded Intake/Ouptut 24 hrs (7:00AM - 6:59 AM) Intake & Output (last 3 days) 09/06 0709/07 0709/08 0709/09 0700 P.O. 170 I.V. (mL/kg) 94 (0.7) 99.6 (0.8) 715.8 (4.6) IV Piggyback 100 449.9 497 Total Intake(mL/kg) 194 (1.5) 549.5 (4.2) 1382.8 (8.9) Urine (mL/kg/hr) 175 6800 (2.2) 6350 (1.7) Stool 0 0 0 Total Output 175 6800 6350 Net +19 -6250.5 -4967.2 Stool Unmeasured Occurrence 1 x 1 x 6 x 1 x Lines, Drains & Airways Active LDAs Name: Placement date: Placement time: Site: Days: Peripheral IV 09/07/19211 Right;Distal Forearm 09/07/19211 Forearm 1 Peripheral IV 09/07/19211 Left;Distal Forearm 09/07/19211 Forearm 1 Urethral Catheter Temperature probe 16 Fr. 09/07/19 0233 1 Hematology: Results from last 7 days Lab Units 09/09/19 0534 09/08/19 0433 09/07/19 0845 WBC 10*3/mm3 5.69 6.29 7.96 HEMOGLOBIN g/dL 15.2 14.9 14.6 HEMATOCRIT % 49.1* 49.0* 47.3* PLATELETS 10*3/mm3 130* 127* 113* Electrolytes, Magnesium and Phosphorus: Results from last 7 days Lab Units 09/09/19 0534 09/08/19 0642 09/07/19 1027 SODIUM mmol/L 137 139 139 CHLORIDE mmol/L 89* 91* 93* POTASSIUM mmol/L 3.7 4.1 4.2 CO2 mmol/L 37.0* 38.0* 34.0* MAGNESIUM mg/dL 2.0 2.2 2.1 PHOSPHORUS mg/dL 3.3 3.1 3.4 Renal: Results from last 7 days Lab Units 09/09/19 0534 09/08/19 0642 09/07/19 1027 CREATININE mg/dL 0.69 0.65 0.67 BUN mg/dL 25* 26* 25* Estimated Creatinine Clearance: 95.1 mL/min (by C-G formula based on SCr of 0.69 mg/dL). Hepatic: Results from last 7 days Lab Units 09/09/19 0534 09/08/19 0642 09/07/19 1027 ALK PHOS U/L 47 49 52 BILIRUBIN mg/dL 0.4 0.3 0.2 ALT (SGPT) U/L 33 36* 33 AST (SGOT) U/L 21 27 37* Arterial Blood Gases: Results from last 7 days Lab Units 09/08/19 0353 09/07/19 0416 PH, ARTERIAL pH units 7.486* 7.408 PCO2, ARTERIAL mm Hg 57.8* 61.1* PO2 ART mm Hg 89.2 118.0* FIO2 % 55 70 Results from last 7 days Lab Units 09/07/19 1610 HEMOGLOBIN A1C % 9.10* Lab Results Component Value Date LACTATE 1.3 09/07/2019 Relevant imaging studies and labs from 09/09/19 were reviewed and interpreted by me Medications (drips): aspirin 81 mg Oral Daily azelastine 2 spray Each Nare BID azithromycin 500 mg Intravenous Q24H budesonide 0.5 mg Nebulization BID - RT [START ON 09/10/2019] cefTRIAXone 1 g Intravenous Q24H cetirizine 10 mg Oral Daily fluticasone 2 spray Nasal Daily furosemide 40 mg Intravenous BID [START ON 09/10/2019] insulin detemir 20 Units Subcutaneous QAM insulin lispro 0-14 Units Subcutaneous 4x Daily With Meals & Nightly ipratropium-albuterol 3 mL Nebulization Q4H - RT levothyroxine sodium 56 mcg Intravenous Daily methylPREDNISolone sodium succinate 20 mg Intravenous Q12H nystatin Topical Q12H pantoprazole 40 mg Intravenous Q24H potassium chloride 40 mEq Oral BID rivaroxaban 20 mg Oral Daily With Dinner rosuvastatin 10 mg Oral Nightly saccharomyces boulardii 500 mg Oral BID sodium chloride 10 mL Intravenous Q12H venlafaxine XR 75 mg Oral Daily vitamin d 5,000 Units Oral Daily Assessment/Plan IMPRESSION / PLAN Inpatient Problem List: 69 y.o.female: Active Hospital Problems Diagnosis ??? Acute on chronic respiratory failure with hypoxia and hypercapnia (CMS/HCC) ??? Asthma with acute exacerbation ??? CAP (community acquired pneumonia) ??? DELL on CPAP ??? Chronic anticoagulation on Xarelto ??? Hx of Henoch-Schonlein purpura Diagnosed in 2004; followed by [facility] ??? Hypothyroidism ??? Chronic steroid use ??? Atrial fibrillation ??? Morbid obesity with BMI of 50.0-59.9, adult ??? HFrEF ??? GERD ??? Obesity hypoventilation syndrome ??? T2DM ??? Dyslipidemia on statin ??? Essential hypertension Impression: 69 y.o.female with relevant PMH of DELL / OHS, HTN, Diastolic HF, Paroxysmal Afib, DM, HLD, GERD, Hypothyroidism, h/o HSP with recent flare on steroids per rheumatology since Aug 17, h/o Asthma admitted 09/07/2019 as transfer from OSH with acute on chronic hypercapnic and hypoxemic respiratory failure requiring intubation. Found to be + for parainfluenza virus. Able to be extubated to [facility] 09/07/19. Plan: Acute on Chronic Hypoxemic & Hypercapnic Respiratory Failure / DELL / OHS / Parainfluenza / CAP - Rocephin + Azithro x 7 days, nebs, steroids. Wean HFNC as able. Bipap hs and prn. CT Chest w/ bibasilar pneumonia L > R. Diastolic HF / Afib - continue DOAC. Diuresis again today. HSP - recent flare, was on outpatient prednisone 60 mg and PJP prophylaxis. Will change IV steroidsto this regimen. DM A1c 9.1 - titrate SQ insulin Resume / continue appropriate home meds PT/OT/ST Nutrition - Diet Regular; Thin; Cardiac, Consistent Carbohydrate Plan of care and goals reviewed with mulitdisciplinary team at daily rounds Critical Care time spent in direct patient care: 30 minutes (excluding procedure time, if applicable) including high complexity decision making to assess, manipulate, and support vital organ system failure in this individual who has impairment of one or more vital organ systems such that there is ahigh probability of imminent or life threatening deterioration in the patient???s condition. Crescencio Galvan MD Intensive Care Medicine 09/09/19 12:50 PM * Queta Michelle RDN, LD - 09/09/2019 9:09 AM EST Clinical Nutrition Multidisciplinary Rounds Patient Name: Nam Mayberry Date of Encounter: 09/09/19 9:09 AM Admission date: 09/07/2019 Reason for visit: MDR. RD to continue to follow per protocol. Additional information obtained during MDR: Pt now on PO diet s/p FEES (09/08). Current diet: Diet Regular; Thin; Cardiac, Consistent Carbohydrate No active supplement orders EMR reviewed Intervention: Follow treatment plan Care plan reviewed Follow up: Per protocol Queta Michelle RDN, LD 9:09 AM Time: 10min * Monique Ramos RN - 09/08/2019 3:04 PM EST Discharge Planning Assessment [facility] Patient Name: Nam Mayberry Today's Date: 09/08/2019 Admit Date: 09/07/2019 Discharge Needs Assessment Row Name 09/08/19 6530 Living Environment Lives With child(nilay), adult lives with son and daughter in law and 16yr old and 10 yr old Name(s) of Who Lives With Patient David son Current Living Arrangements home/apartment/condo Primary Care Provided by child(nilay) Provides Primary Care For no one, unable/limited ability to care for self Family Caregiver if Needed child(nilay), adult Family Caregiver Names David Quality of Family Relationships helpful;involved;supportive Able to Return to Prior Arrangements yes Living Arrangement Comments Pt lives with son , daughter in law and 2 children in [facility]. Pt does ambulate with Quad cane. Transition Planning Patient/Family Anticipates Transition to inpatient rehabilitation facility Patient/Family Anticipated Services at Transition none Transportation Anticipated family or friend will provide Discharge Needs Assessment Readmission Within the Last 30 Days no previous admission in last 30 days Concerns to be Addressed discharge planning Equipment Currently Used at Home cane, quad;bipap/cpap;bath bench;oxygen Anticipated Changes Related to Illness none Equipment Needed After Discharge none Discharge Facility/Level of Care Needs -- snf Discharge Plan Row Name 09/08/19 1457 Plan Plan IDP Plan Comments Met with patient,daughter and daughter in law at . Pt lives with son and daughter in law in [facility]. She does ambulate with quad cane. Pt has not had HH. Pt does wear 02 qhs thru [facility]. If rehab is needed they want to go to [place] in [facility]. CM Will follow. Final Discharge Disposition Code 03 - nursing home facility (SNF) Destination Coordination has not been started for this encounter. Durable Medical Equipment Coordination has not been started for this encounter. Dialysis/Infusion Coordination has not been started for this encounter. Home Medical Care Coordination has not been started for this encounter. Therapy Coordination has not been started for this encounter. Community Resources Coordination has not been started for this encounter. 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 Abuse/Neglect No documentation. Legal No documentation. Substance Abuse No documentation. Patient Forms No documentation. Monique Ramos RN * Crescencio Galvan MD - 09/08/2019 11:40 AM EST CORPORATE TRAVEL CONSULTANT / PULMONARY FOLLOW UP NOTE Hospital: LOS: 1 day Ms. Nam Mayberry, 69 y.o. female is followed for: Acute on chronic respiratory failure with hypoxia and hypercapnia (CMS/HCC) Dyslipidemia on statin Essential hypertension T2DM GERD Obesity hypoventilation syndrome DELL on CPAP Chronic anticoagulation on Xarelto Hx of Henoch-Schonlein purpura Hypothyroidism Chronic steroid use Atrial fibrillation Morbid obesity with BMI of 50.0-59.9, adult HFrEF Asthma with acute exacerbation CAP (community acquired pneumonia) SUBJECTIVE Extubated yesterday, on HFNC The patient's relevant past medical, surgical, family, and social history were reviewed Allergies and medications were reviewed ROS: Per subjective, all other systems were reviewed and were negative OBJECTIVE Vital Sign Min/Max for last 24 hours: Temp Min: 98 ??F (36.7 ??C) Max: 98.6 ??F (37 ??C) BP Min: 130/64 Max: 175/91 Pulse Min: 56 Max: 75 Resp Min: 12 Max: 26 SpO2 Min: 88 % Max: 98 % No data recorded Physical Exam: General Appearance: Conversant, in no acute distress Eyes: No scleral icterus or pallor, pupils normal Ears, Nose, Mouth, Throat: Atraumatic, oropharynx clear Neck: Trachea midline, thyroid normal Respiratory: Clear to auscultation bilaterally, normal effort, no tenderness to palpation Cardiovascular: Regular rate and rhythm, no murmurs, no peripheral edema, no thrill Gastrointestinal: Soft, non-tender, non-distended, no hepatosplenomegaly Skin: Normal temperature, no rash Psychiatric: confused Neuro: No new focal neurologic deficits observed Telemetry: Hemodynamics: CVP: PAP: PAOP: CO: CI: SVI: SVR: SpO2: 98 % SpO2 Min: 88 % Max: 98 % Device: Flow Rate: No data recorded Intake/Ouptut 24 hrs (7:00AM - 6:59 AM) Intake & Output (last 3 days) 09/05 701 - 09/06 0709/06 0709/07 - 09/08 0709/08 0709/09 0700 I.V. (mL/kg) 94 (0.7) 99.6 (0.8) 357 (2.7) IV Piggyback 100 449.9 Total Intake(mL/kg) 194 (1.5) 549.5 (4.2) 357 (2.7) Urine (mL/kg/hr) 175 6800 (2.2) 140 (0.2) Stool 0 0 0 Total Output 175 6800 140 Net +19 -6250.5 +217 Stool Unmeasured Occurrence 1 x 1 x 1 x Lines, Drains & Airways Active LDAs Name: Placement date: Placement time: Site: Days: Peripheral IV 09/07/19211 Right;Distal Forearm 09/07/19211 Forearm 1 Peripheral IV 09/07/19 0212 Left;Distal Forearm 09/07/19 021 Forearm 1 Urethral Catheter Temperature probe 16 Fr. 09/07/19 0233 1 Hematology: Results from last 7 days Lab Units 09/08/19 0433 09/07/19 0845 WBC 10*3/mm3 6.29 7.96 HEMOGLOBIN g/dL 14.9 14.6 HEMATOCRIT % 49.0* 47.3* PLATELETS 10*3/mm3 127* 113* Electrolytes, Magnesium and Phosphorus: Results from last 7 days Lab Units 09/08/19 0642 09/07/19 1027 SODIUM mmol/L 139 139 CHLORIDE mmol/L 91* 93* POTASSIUM mmol/L 4.1 4.2 CO2 mmol/L 38.0* 34.0* MAGNESIUM mg/dL 2.2 2.1 PHOSPHORUS mg/dL 3.1 3.4 Renal: Results from last 7 days Lab Units 09/08/19 0642 09/07/19 1027 CREATININE mg/dL 0.65 0.67 BUN mg/dL 26* 25* Estimated Creatinine Clearance: 85.2 mL/min (by C-G formula based on SCr of 0.65 mg/dL). Hepatic: Results from last 7 days Lab Units 09/08/19 0642 09/07/19 1027 ALK PHOS U/L 49 52 BILIRUBIN mg/dL 0.3 0.2 ALT (SGPT) U/L 36* 33 AST (SGOT) U/L 27 37* Arterial Blood Gases: Results from last 7 days Lab Units 09/08/19 0353 09/07/19 0416 PH, ARTERIAL pH units 7.486* 7.408 PCO2, ARTERIAL mm Hg 57.8* 61.1* PO2 ART mm Hg 89.2 118.0* FIO2 % 55 70 Results from last 7 days Lab Units 09/07/19 1610 HEMOGLOBIN A1C % 9.10* Lab Results Component Value Date LACTATE 1.3 09/07/2019 Relevant imaging studies and labs from 09/08/19 were reviewed and interpreted by me Medications (drips): aspirin 81 mg Oral Daily azelastine 2 spray Each Nare BID azithromycin 500 mg Intravenous Q24H budesonide 0.5 mg Nebulization BID - RT cetirizine 10 mg Oral Daily ertapenem 1 g Intravenous Q24H fluticasone 2 spray Nasal Daily furosemide 40 mg Intravenous Q8H insulin detemir 10 Units Subcutaneous Daily insulin regular 0-14 Units Subcutaneous Q6H ipratropium-albuterol 3 mL Nebulization Q4H - RT levothyroxine sodium 56 mcg Intravenous Daily methylPREDNISolone sodium succinate 20 mg Intravenous Q8H nystatin Topical Q12H pantoprazole 40 mg Intravenous Q24H potassium chloride 10 mEq Intravenous TID rivaroxaban 20 mg Oral Daily With Dinner rosuvastatin 10 mg Oral Nightly sodium chloride 10 mL Intravenous Q12H venlafaxine XR 75 mg Oral Daily vitamin d 5,000 Units Oral Daily Assessment/Plan IMPRESSION / PLAN Inpatient Problem List: 69 y.o.female: Active Hospital Problems Diagnosis ??? Acute on chronic respiratory failure with hypoxia and hypercapnia (CMS/HCC) ??? Asthma with acute exacerbation ??? CAP (community acquired pneumonia) ??? DELL on CPAP ??? Chronic anticoagulation on Xarelto ??? Hx of Henoch-Schonlein purpura Diagnosed in 2004; followed by [facility] ??? Hypothyroidism ??? Chronic steroid use ??? Atrial fibrillation ??? Morbid obesity with BMI of 50.0-59.9, adult ??? HFrEF ??? GERD ??? Obesity hypoventilation syndrome ??? T2DM ??? Dyslipidemia on statin ??? Essential hypertension Impression: 69 y.o.female with relevant PMH of DELL / OHS, HTN, Diastolic HF, Paroxysmal Afib, DM, HLD, GERD, Hypothyroidism, h/o HSP with recent flare on steroids per rheumatology since Aug 17, h/o Asthma admitted 09/07/2019 as transfer from OSH with acute on chronic hypercapnic and hypoxemic respiratory failure requiring intubation. Found to be + for parainfluenza virus. Able to be extubated to [facility] 09/07/19. Plan: Acute on Chronic Hypoxemic & Hypercapnic Respiratory Failure / DELL / OHS / Parainfluenza / Possible CAP - continue abx, nebs, steroids. Wean HFNC as able. Bipap hs and prn. Will hold off on vancofor now. CT Chest w/ bibasilar pneumonia L > R. Diastolic HF / Afib - continue DOAC. Diuresis today. HSP - recent flare, eventually dec steroids to home dose DM A1c 9.1 - titrate SQ insulin Resume / continue appropriate home meds PT/OT/ST Nutrition - NPO Diet Plan of care and goals reviewed with mulitdisciplinary team at daily rounds Critical Care time spent in direct patient care: 30 minutes (excluding procedure time, if applicable) including high complexity decision making to assess, manipulate, and support vital organ system failure in this individual who has impairment of one or more vital organ systems such that there is ahigh probability of imminent or life threatening deterioration in the patient???s condition. Crescencio Galvan MD Intensive Care Medicine 09/08/19 11:40 AM * Queta Michelle RDN, LD - 09/08/2019 9:14 AM EST Clinical Nutrition Multidisciplinary Rounds Patient Name: Nam Mayberry Date of Encounter: 09/08/19 9:14 AM Admission date: 09/07/2019 Reason for visit: MDR. RD to continue to follow per protocol. Additional information obtained during MDR: Plans to decrease steroids today. Plans for COMPANION CAREGIVER evaluation today. Current diet: NPO Diet No active supplement orders EMR reviewed Intervention: Follow treatment plan Care plan reviewed RD notes pts HgbA1C lab-will offer nutrition education as clinically appropriate Follow up: Per protocol Queta Michelle RDN, LD 9:14 AM Time: 10min documented in this encounter H&P Notes * Jonnathan Grajeda MD - 09/07/2019 2:30 AM EST Chief complaint: Altered mental status and shortness of breath Subjective Nam Mayberry is a 69 y.o. female who to [facility] as a transfer from [facility] 09/07/19 for higher level of care. The patient was originally brought to [facility] ED via family transport on 09/04/2019 due to altered mental status. She was found to be in acute hypercarbic respiratory failure and failed trial of BiPAP therapy. She was subsequently intubated and placed on mechanical ventilation with improvement in respiratory acidosis. Lab work-up at OSH unremarkable aside from glucose 298, UA with 1+ leukoesterase and 2+ bacteria, and urine culture positive for E. coli. Most recent ABG on 40% FiO2 with pH 7.37/PCO2 63/HCO3 36. Of note, the patient was seen by her PCP in July for lower extremity cellulitis where she was intolerant to a course of Bactrim and was placed on cephalexin. She also has a history of HSP with recurrent vasculitis and has been on and off steroid therapy for the past several years in attempts tomanage disease sequelae; most recent prednisone course was initiated 08/17/19. She is seen by Dr. Hernando Galvan in our office. She has recently been started on CPAP therapy for obstructive sleep apnea. She lives with her son. He has noted that she has been more confused latelyand an episodic manner. She does take Valium 1-2 times a day as needed. After admission to [facility] she was placed on bronchodilators, antibiotics, steroids, and given fluid bolus for possible sepsis. She was initiated on Invanz and azithromycin on admission. There was question of basilar and perihilar infiltrates but the imaging was difficult due to her size. She was sedated but yesterday when sedation was weaned she is able to follow commands. Sheunderwent a weaning trial and was not extubated due to an elevated RSB I of around 140. Echocardiogram revealed normal left ventricular size and EF of 50%. Diastolic parameters were inconclusive. She had a mildly enlarged right ventricle with normal contractility as well as mild mitral and tricuspid regurgitation. BNP and troponin were normal on admission and she maintained sinus rhythm throughout her hospital stay. On the third day of admission she was started on trophic feeds. Initial UA was concerning for UTI and urine culture was positive for E. coli which was sensitive toInvanz. History Past 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: Diagnosis Date ??? Anxiety ??? Cancer (CMS/HCC) ??? Depression ??? Diabetes mellitus (CMS/HCC) ??? Hyperlipidemia ??? Hypertension Past Surgical History: Procedure Laterality Date ??? CATARACT EXTRACTION Left 2018 ??? HYSTERECTOMY 1989 ??? OOPHORECTOMY Bilateral 1989 Family History Problem Relation Age of Onset ??? Stroke Mother ??? Alzheimer's disease Mother ??? Alzheimer's disease Paternal Aunt ??? Heart failure Father ??? Heart failure Paternal Grandfather ??? Breast cancer Neg Hx ??? Ovarian cancer Neg Hx Social History Tobacco Use ??? Smoking status: Former Smoker ??? Smokeless tobacco: Never Used Substance Use Topics ??? Alcohol use: No ??? Drug use: No Review of Systems Review of systems could not be obtained due to patient intubated. Objective Vital Signs FiO2 (%): [100 %] 100 % Physical Exam: Objective: General Appearance: In no acute distress. Vital signs: (most recent): Weight 131 kg (288 lb 12.8 oz), not currently . HEENT: (Oral ET tube Orogastric tube) Lungs: Normal effort and normal respiratory rate. She is not in respiratory distress. There are decreased breath sounds, wheezes and rhonchi. No rales. Heart: Normal rate. Regular rhythm. S1 normal and S2 normal. No murmur, gallop or friction rub. Chest: Symmetric chest wall expansion. Abdomen: Abdomen is soft and non-distended. (Morbidly obese). Bowel sounds are normal. There is no abdominal tenderness. Extremities: There is dependent edema. There is no deformity. (Mild chronic appearing changes rightgreater than left lower extremity) Neurological: (Sedated). Pupils: Pupils are equal, round, and reactive to light. Skin: Warm and dry. Results Review: I personally viewed and interpreted the patient's EKG/Telemetry data Reviewed extensive outside records Assessment/Plan Assessment: Active Hospital Problems Diagnosis ??? Acute on chronic respiratory failure with hypoxia and hypercapnia (CMS/HCC) ??? Asthma with acute exacerbation ??? CAP (community acquired pneumonia) ??? Obesity hypoventilation syndrome ??? DELL on CPAP ??? Chronic anticoagulation on Xarelto ??? Hx of Henoch-Schonlein purpura Diagnosed in 2004; followed by [facility] ??? Hypothyroidism ??? Chronic steroid use ??? Atrial fibrillation ??? Morbid obesity with BMI of 50.0-59.9, adult ??? HFrEF ??? GERD ??? T2DM ??? Dyslipidemia on statin ??? Essential hypertension 69-year-old female admitted to [facility] on 09/04 with acute on chronic mixed respiratory failure. Followed by Dr. Hernando Galvan in our office for asthma, obesity hypoventilation syndrome, and obstructive sleep apnea. Was also noted to recently have atrial fibrillation and saw . Was treated with calcium channel blockers and Xarelto. Has been in normal sinus rhythm thr oughout her hospital stay at [facility]. Was felt to have pneumonia on admission there based upon her chest x-ray. Has been treated with steroids, antibiotics, and bronchodilators with some improvement though as of yesterday morning she still had an elevated RSB I and was unable to be extubated. Transfer was requested to our facility for a higher level of care. Plan: 1. ICU admission 2. Ventilator adjustments made 3. Continue broad-spectrum antibiotics 4. Repeat pancultures 5. IV steroids 6. Bronchodilators 7. Additional diuresis 8. Continue attempts at ventilator weaning 9. Levothyroxine for hypothyroidism 10. Sliding scale insulin 11. DVT and GI prophylaxis. I note that recently she was on Xarelto for atrial fibrillation but shehas remained in normal sinus rhythm throughout her hospital stay at [facility]. Will place on subcutaneous prophylactic doses of heparin. I discussed the patients findings and my recommendations with nursing staff. Critical Care time spent in direct patient care: 60 minutes (excluding procedure time, if applicable) including high complexity decision making to assess, manipulate, and support vital organ system failure in this individual who has impairment of one or more vital organ systems such that there is ahigh probability of imminent or life threatening deterioration in the patient???s condition. I have seen and examined patient, performing a [id number] diagnostic evaluation with plan of carereviewed and developed with [employer] EXCHANGE ARCHITECT and nursing staff. I have addended and modified the above history of present illness, physical examination, and assessment and plan to reflect my findings and impressions. Jonnathan Grajeda MD Pulmonary and Critical Care Medicine documented in this encounter Consult Notes * Bozena Lozano RN - 09/14/2019 1:58 PM EST NN spoke with pt at BS. Pt alert and able to answer questions appropriately. Pt O2 sat 90% on 2 L currently, home O2 use 2L. NN scheduled pulmonary clinic follow up per pt request. No new concerns orquestions voiced at this time. NN will continue to follow as needed. * Bozena Lozano RN - 09/13/2019 10:32 AM EST NN spoke with pt at BS. Pt alert and able to answer questions appropriately. Pt O2 sat 93% on 3 L currently, home O2 use 2L PRN. Pt still planning roel go to rehab upon DC. No new concerns or questions voiced at this time. NN will continue to follow as needed. * Bozena Lozano RN - 09/12/2019 10:35 AM EST NN spoke with pt at BS. Pt alert and able to answer questions appropriately. Pt O2 sat 93% on 2 L currently, home O2 use 2L. Pt states that she has been working with Pt and nursing to be more active.Pt is expected to be going to rehab at time of DC. Initial visit education reiterated. No new concerns or questions voiced at this time. NN will continue to follow as needed. * Antonia Cotto RN - 09/09/2019 3:01 PM EST Saw Ms. Mayberry at bedside for diabetes education, she gave permission for education. Her daughter Caitlyn was present during visit. Pt shares that she has been told her A1c is elevated. She does not monitor blood sugars at home often, so had not noticed an increase in her blood sugars. She reports she does have a PCP outpatient, she is unclear whether her A1c has been elevated but states for awhile it was below 7. Daughter reports that she lives w/ son and daughter in law so they would benefit from education about diet as they cook all of pt's meals. Ms. Mayberry is aware of the effectsof steroids on her blood sugar, we discussed the effects of illness and stress as well also elevating blood sugar, and the benefits of monitoring regularly at home including that she would be able tonotice if her blood sugars are trending high. She currently takes glipizide at home and acknowledges that she has been given insulin in the hospital. We discussed use of insulin while inpatient and importance of blood sugar management while recovering from illness. She verbalized understanding. We discussed outpatient education and how this would be helpful for both her and her family-she is willing to consider outpatient ed. Daughter states she may be going to IP rehab before home, will place on outpatient referral list-pt gave permission for referral to be requested from her PCP and will follow up with pt for appropriate time to schedule. We discussed her A1c of 9.1 and it's significance,discussed ADA recommended target range for A1c and blood sugar. Discussed monitoring blood sugar athome daily and alternating what time of day she checks to include fasting and 2 hours post prandial-discussed how post prandial numbers can help her learn how different foods and meals affect her blood sugar. She notes that she is unsure of what she is supposed to eat and avoid, and that she has been told consistent carb diet but isn't sure what that entails-told her and her daughter I will bringback basic information about consistent carb. Noted no metal fabricating inspector consult at this time, will place consult for metal fabricating inspector to see inpatient for education on diabetes nutrition. Discussed ADA recommendedtarget ranges for blood sugars. Encouraged her to keep record of blood glucose readings from home to take to follow up appointments with PCP. Provided patient with copy of [employer] What is Diabetes handout, Blood Glucose Goals handout, and What is A1c handout. Thank you for the consult. Bozena Cornell RN - 09/09/2019 9:07 AM EST NN spoke with pt at BS. Pt alert and able to answer questions appropriately. Pt O2 sat 93% on 40% HFNC currently, home O2 use 2 L. Pt states taht she is interested in inpatient rehab and would like to be able to get back and forth to appointments. Pt encouraged to seek IP rehab and possibly continue to OP rehab and a maintenance program. Pt reports no previous hx of formal COPD teaching, no understanding of action plan, or MA.Stop light report, NN contact information, instructions for accessingiTGR and list of educational videos given to pt. COPD education completed in the form of explanation, handouts, and videos. No new concerns or questions voiced at this time. NN will continue to follow as needed. * Bozena Lozano RN - 09/08/2019 12:55 PM EST Referring Provider: MD Nicci Reason for Consultation: AECOPD Subjective . Education: NN spoke with pt at BS. Pt alert and able to answer questions appropriately. Pt O2 sat 93 % on 50% HFNC currently, home O2 use 2 L PRN. Pt reports the ability to ambulate at baseline only a couple of steps. Pt and family report that they believe this to be related to other factors ratherthan just COPD. Pt states no issues with paying for medications at this time, however states that getting ready and getting to appointments is too overwhelming for her to do on a regular basis. Pt and family state that they will work on having a plan in place before discharge to help the patient take her meds appropriately. Pt states use of rescue inhaler 7 times weekly, relief of SOB within 2-3 Mins. Up to date on flu and PNA vaccines. Pt reports no previous hx of formal COPD teaching, no understanding of action plan, or MA. NN will complete education tomorrow as pt states that she is currently to tired to go over it. No new concerns or questions voiced at this time. NN will continue to follow as needed. Age: 69 y.o. Sex: female Smoker Status: [facility] Humidifier Operator: Cristiano Galvan MD FEV1 (PFT): 72% 4//19 Home O2: 2L PRN, CPAP Objective SpO2 SpO2: 92 % (09/08/19 1236) Device Device (Oxygen Therapy): high-flow nasal cannula, heated, humidified (09/08/19 1236) Flow Flow (L/min): (S) 35 (09/08/19 1236) Incentive Spirometer IS Predicted Level (mL) Number of Repetitions Level Incentive Spirometer (mL) Patient Tolerance Inhaler Treatment Status Treatment Route Home Medications: Facility-Administered Medications Prior to Admission Medication Dose Route Frequency Provider Last Rate Last Dose ??? cyanocobalamin injection 1,000 mcg 1,000 mcg Intramuscular Q28 Days Huber Grossman MD 1,000 mcg at 07/21/19 1238 Medications Prior to Admission Medication Sig Dispense Refill Last Dose ??? Ergocalciferol (VITAMIN D2 PO) Take 1.25 mg by mouth 1 (One) Time Per Week. ??? loratadine (CLARITIN) 10 MG tablet Take 10 mg by mouth Daily. ??? prednisoLONE acetate (PRED FORTE) 1 % ophthalmic suspension 1 drop. ??? predniSONE (DELTASONE) 10 MG tablet Take 60 mg by mouth Daily. ??? rivaroxaban (XARELTO) 20 MG tablet Take 20 mg by mouth Daily. ??? sulfamethoxazole-trimethoprim (BACTRIM DS,SEPTRA DS) 800-160 MG per tablet Take 1 tablet by mouth 2 (Two) Times a Day. ??? aspirin 81 MG EC tablet Take 81 mg by mouth Daily. Taking ??? azelastine (ASTELIN) 0.1 % nasal spray 2 sprays into the nostril(s) as directed by provider Daily. Use in each nostril as directed 30 mL 5 Taking ??? azithromycin (ZITHROMAX) 250 MG tablet Take 2 tablets the first day, then 1 tablet daily for 4 days. 6 tablet 0 ??? betamethasone dipropionate (DIPROLENE) 0.05 % cream Apply topically to the appropriate area as directed 2 (Two) Times a Day. 45 g 0 Taking ??? budesonide-formoterol (SYMBICORT) 160-4.5 MCG/ACT inhaler Inhale 2 puffs 2 (Two) Times a Day. 3inhaler 3 Taking ??? cephalexin (KEFLEX) 500 MG capsule Take 1 capsule by mouth 3 (Three) Times a Day. 30 capsule 0 ??? Cholecalciferol (VITAMIN D3) 5000 units capsule capsule Take 5,000 Units by mouth Daily. Taking ??? diazePAM (VALIUM) 5 MG tablet Take 1 tablet by mouth 2 (Two) Times a Day As Needed for Anxiety.30 tablet 2 ??? DILT-XR 120 MG 24 hr capsule TAKE 1 CAPSULE BY MOUTH EVERY DAY (Patient taking differently: Take 120 mg by mouth Daily.) 90 capsule 1 Taking ??? fluticasone (FLONASE) 50 MCG/ACT nasal spray 2 sprays into the nostril(s) as directed by provider Daily. 3 bottle 1 Taking ??? furosemide (LASIX) 40 MG tablet TAKE 1 TABLET BY MOUTH EVERY DAY (Patient taking differently: Take 40 mg by mouth Daily.) 30 tablet 5 ??? glipizide (GLUCOTROL) 5 MG tablet Take 1 tablet by mouth 2 (Two) Times a Day Before Meals. 180 tablet 1 Taking ??? levalbuterol (XOPENEX HFA) 45 MCG/ACT inhaler Inhale 1-2 puffs Every 4 (Four) Hours As Needed for Wheezing. Taking ??? levothyroxine (SYNTHROID) 75 MCG tablet Take 1 tablet by mouth Daily. 30 tablet 2 ??? olmesartan (BENICAR) 20 MG tablet Take 1 tablet by mouth Daily. 90 tablet 1 Taking ??? omeprazole (priLOSEC) 20 MG capsule Take 1 capsule by mouth Daily. 90 capsule 1 Taking ??? potassium chloride (MICRO-K) 10 MEQ CR capsule TAKE 1 CAPSULE BY MOUTH EVERY DAY (Patient taking differently: Take 10 mEq by mouth Daily.) 30 capsule 5 ??? rosuvastatin (CRESTOR) 10 MG tablet Take 1 tablet by mouth Every Night. 90 tablet 1 Taking ??? triamterene-hydrochlorothiazide (MAXZIDE-25) 37.5-25 MG per tablet Take 1 tablet by mouth Daily. 30 tablet 1 Taking ??? venlafaxine XR (EFFEXOR-XR) 75 MG 24 hr capsule Take 1 capsule by mouth Daily. 90 capsule 1 Taking Discussion: Per current GOLD Standards, please consider: No LAMA in place, patient agreeable to inpatient pulmonary rehab Bozena Lozano RN * Nimisha Becerra RN - 09/08/2019 9:22 AM EST Continued to monitor patients condition for diabetes Education. Noted confusion. Will defer until condition improves. Thank you for this opportunity. * Bozena Lozano RN - 09/07/2019 1:58 PM ESTAssociated Order(s): IP CONSULT FOR COPD NURSE NAVIGATOR NN has been to unit twice to attempt to complete consult. Pt is ventilated mechanically and not appropriate for teaching at this time. NN will continue to follow. documented in this encounter Nursing Notes * Sona Reed PT - 09/15/2019 2:04 PM EST Problem: Patient Care Overview Goal: Plan of Care Review Outcome: Ongoing (interventions implemented as appropriate) Flowsheets Taken 09/14/20191999 by Carolyne Alvarado RN Plan of Care Reviewed With: patient Taken 09/15/2019 1525 by Sona Reed PT Outcome Summary: CUES FOR SAFETY WITH WALKER DURING TRANSFERS. AMBULATED 160 FEET WITH CGA AND R WALKER ON 3L O2. GOALS PARTIALLY MET. PT DISCHARGING TO SNF LATER TODAY. D/C P.T. * Carolyne Alvarado RN - 09/15/2019 4:27 AM EST PATIENT ALERT AND ORIENTED. RESTED WELL THIS SHIFT WITH BIPAP IN PLACE. NO COMPLAINTS VOICED. VSS. CALL LIGHT WITHIN REACH. BED ALARM IN PLACE. WILL CONTINUE TO MONITOR. * Yumiko Bower, MS CCC-COMPANION CAREGIVER - 09/14/2019 10:27 AM EST Problem: Patient Care Overview Goal: Plan of Care Review Outcome: Ongoing (interventions implemented as appropriate) Flowsheets (Taken 09/14/2019 1026) Plan of Care Reviewed With: patient Note: COMPANION CAREGIVER treatment completed. Will continue to address dysphagia. Please see note for further details and recommendations. * Carolyne Lockett RN - 09/13/2019 6:55 PM EST Alert and oriented. Respirations unlabored 3L cannula. NSR monitor. Denied pain. Up to bathroom andrecliner 2 assist/walker. Purewick currently in place per patient request. Family bedside intermittent. Problem: Skin Injury Risk (Adult) Goal: Skin Health and Integrity Outcome: Ongoing (interventions implemented as appropriate) Flowsheets (Taken 09/13/2019 1854) Skin Health and Integrity: making progress toward outcome Problem: Chronic Obstructive Pulmonary Disease (Adult) Goal: Signs and Symptoms of Listed Potential Problems Will be Absent, Minimized or Managed (ChronicObstructive Pulmonary Disease) Outcome: Ongoing (interventions implemented as appropriate) Flowsheets (Taken 09/13/2019 1854) Problems Assessed (Chronic Obstructive Pulmonary Disease (COPD)): all Problems Present (COPD, Bronch/Emphy): respiratory compromise * Sona Reed PT - 09/13/2019 2:22 PM EST Problem: Patient Care Overview Goal: Plan of Care Review Outcome: Ongoing (interventions implemented as appropriate) Flowsheets Taken 09/12/2019 1215 by Meenakshi Menjivar PT Progress: improving Taken 09/13/2019 1509 by Sona Reed PT Plan of Care Reviewed With: patient;daughter Outcome Summary: PT NEEDS CUES FOR SAFETY WITH MOBILITY. AMBULATED 65 FEET WITH MIN ASSIST AND R WALKER ON 3L O2. REQUIRED ONE STANDING REST BREAK ON 3L O2 WITH CUES FOR PLB. RECOMMEND PULMONARY REHAB AT D/C FOR RETURN TO MAX LEVEL OF FUNCTION BEFORE HOME. * Maite Dorman RN - 09/13/2019 7:08 AM EST VSS. Droplet/Contact precautions maintained. A/O x4. Generalized weakness noted. Pt. Remains on 3L NC, with BiPAP @ HS. Plan is to d/c to SNF when placement is found. Pt. Reports the need for a walker. Pt. Reports no complaints at this time. Will continue to monitor closely. * Rita Mahan RN - 09/12/2019 5:13 PM EST Pt transferred to unit at 1252. VSS during shift. A&Ox4. Pt maintained on contact precautions during shift. 3LNC to maintain sats as ordered. Pt denied c/o pain this shift. Purewick in place. Pt daughter at bedside most of shift. Plan for pt is possible discharge to SNF tomorrow once placement is found. PT contacted to get pt walker. Pt can transfer with x2 assist and walker. Pt denies further needs from RN at this time. Will continue to monitor on 09/12/2019 at 1713. * Meenakshi Menjivar, PT - 09/12/2019 11:36 AM EST Problem: Patient Care Overview Goal: Plan of Care Review Outcome: Ongoing (interventions implemented as appropriate) Flowsheets (Taken 09/12/2019 1215) Progress: improving Plan of Care Reviewed With: patient Outcome Summary: Pt demonstrated ability to progress forward ambulation distance to 80 total ft with use of RW, min A. Distance limited by c/o BLE fatigue, but no seated rest break required today. Edu pt re: benefit of further ther ex throughout day. Will cont PT POC; cont to recommend SNF at d/c based upon current level of mobility/ functional endurance. * Luz Marina Kelly, MS CCC-COMPANION CAREGIVER - 09/12/2019 10:40 AM EST Problem: Patient Care Overview Goal: Plan of Care Review Outcome: Ongoing (interventions implemented as appropriate) Flowsheets (Taken 09/12/2019 1040) Progress: improving Plan of Care Reviewed With: patient Note: COMPANION CAREGIVER treatment completed. Will continue to address dysphagia during treatment. Please see note for further details and recommendations. * Susan Sorensen RN - 09/12/2019 5:55 AM EST Problem: Patient Care Overview Goal: Plan of Care Review Outcome: Ongoing (interventions implemented as appropriate) Flowsheets Taken 09/12/2019 0552 Progress: improving Outcome Summary: VSS. Patient on 2-3L NC, wore bipap for about half of the night. Rested well. Ordered to telemetry. Taken 09/11/20191999 Plan of Care Reviewed With: patient * Jenn Foreman RN - 09/11/2019 5:00 PM EST Problem: Patient Care Overview Goal: Plan of Care Review Outcome: Ongoing (interventions implemented as appropriate) Flowsheets (Taken 09/11/2019 1657) Progress: improving Plan of Care Reviewed With: patient Outcome Summary: walked further with PT today, dropped sats for a while requiring 5L nasal cannula,recovered in the afternoon back to 3L, although pulse oximetry site was changed to the forehead, ate well today, K was 5.5-pm dose of potassium held, will reassess tomorrow * Leydi Sher OT - 09/11/2019 1:45 PM EST Problem: Patient Care Overview Goal: Plan of Care Review Outcome: Ongoing (interventions implemented as appropriate) Flowsheets (Taken 09/11/2019 1345) Outcome Summary: OT initial eval and expanded chart review completed. Pt presents with multiple comorbidities and decreased independence with ADL's and mobility. Pt demonstrates excellent motvation for therapy and will be a great rehab candidate.Recommend SNF at d/c. * Vivian Alegria PT - 09/11/2019 1:30 PM EST Problem: Patient Care Overview Goal: Plan of Care Review Outcome: Ongoing (interventions implemented as appropriate) Flowsheets (Taken 09/11/2019 1548) Progress: improving Plan of Care Reviewed With: patient Outcome Summary: patient is able to increase ambulation to 40 ft x2 she shows improved strength requiring less assist to transfer and ambulate, continues to progress towards goals * Malika Yanes RN - 09/11/2019 5:08 AM EST Problem: Patient Care Overview Goal: Plan of Care Review Outcome: Ongoing (interventions implemented as appropriate) Flowsheets (Taken 09/11/2019 0506) Progress: improving Plan of Care Reviewed With: patient Outcome Summary: has slept most of the night. doing well. VSS on 3L NC, wore Bipap at night. ordered to tele. * Svetlana Golden RN - 09/10/2019 5:33 PM EST Problem: Patient Care Overview Goal: Plan of Care Review Outcome: Ongoing (interventions implemented as appropriate) Flowsheets Taken 09/09/2019 1641 by Jenn Foreman RN Progress: improving Taken 09/10/2019 1600 by Svetlana Golden RN Plan of Care Reviewed With: patient Taken 09/10/2019 1725 by Svetlana Golden RN Outcome Summary: VSS. O2 on 2-3L NC. Up to the chair today with assist of 3. In chair for ~7 hours.PA/Lateral in morning. Ordered to Tele. * Tony Fortune RN - 09/10/2019 5:07 AM EST Problem: Patient Care Overview Goal: Plan of Care Review Flowsheets Taken 09/09/2019 1641 by Jenn Foreman RN Progress: improving Taken 09/10/2019 0400 by Tony Fortune RN Plan of Care Reviewed With: patient Taken 09/10/2019 0505 by Tony Fortune RN Outcome Summary: Patient on 5LNC and increased to 6L at beginning of shift, sats were better once SPO2 site changed. BIPAP worn to sleep, 40-50% FIO2. 2 loose bowel movements. VSS. * Jenn Foreman RN - 09/09/2019 4:46 PM EST Problem: Patient Care Overview Goal: Plan of Care Review Outcome: Ongoing (interventions implemented as appropriate) Flowsheets (Taken 09/09/2019 1641) Progress: improving Plan of Care Reviewed With: patient Outcome Summary: walked with PT to door way, still very weak with standing up, multiple bowel movements-florastor and one times dose of immodium, weaned to 2L nasal cannula, productive cough-sputum culture sent to lab, bactrim ordered- patient states she has an allergy to this, spoke with jered pharmacist and niya wilder aprn about the supposed allergy and it was decided to go ahead and give todaysdose of bactrim and then ask MD about order the next day in rounds, no reaction after medication given * Meenakshi Menjivar, PT - 09/09/2019 1:10 PM EST Problem: Patient Care Overview Goal: Plan of Care Review Outcome: Ongoing (interventions implemented as appropriate) Flowsheets (Taken 09/09/2019 1414) Progress: improving Plan of Care Reviewed With: patient Outcome Summary: Pt demonstrated ability to progress forward ambulation distance to 32 total ft with minx2 A, RW, 1 seated rest break. Cont to be limited by generalized fatigue and c/o dizziness in upright; gave excellent effort throughout. * Jed Joseph, RN - 09/09/2019 6:55 AM EST Problem: Patient Care Overview Goal: Plan of Care Review Flowsheets (Taken 09/09/2019 0650) Progress: improving Plan of Care Reviewed With: patient Outcome Summary: Pt rested well throughout the night. On BiPAP majority of night, HFNC on in AM at 40%/35L. No complaints of pain. Continued diuresis, UOP around 2L. Otto removed in AM. Incontinent to bowel, x2 BM. Tolerating PO diet. VSS. Afebrile. * Jenn Foreman RN - 09/08/2019 6:12 PM EST Problem: Patient Care Overview Goal: Plan of Care Review Outcome: Ongoing (interventions implemented as appropriate) Flowsheets (Taken 09/08/2019 1809) Plan of Care Reviewed With: patient; family Outcome Summary: cleared for regular diet with no straws, physical therapy was able to stand patient twice, lifted to chair and stayed there for ~5 hours, able to wean hiflo to 45%, diuresed >4L, multiple incontinent bowel movements, more awake as the day went on * Edvin Castellanos MS CCC-COMPANION CAREGIVER - 09/08/2019 4:28 PM EST Problem: Patient Care Overview Goal: Plan of Care Review 09/08/2019 1628 by Edvin Castellanos MS CCC-COMPANION CAREGIVER Outcome: Ongoing (interventions implemented as appropriate) Flowsheets (Taken 09/08/2019 1628) Plan of Care Reviewed With: patient; family Note: COMPANION CAREGIVER FEES evaluation completed. Will address dysphagia. Please see note for further details and recommendations. * Meenakshi Menjivar, PT - 09/08/2019 2:14 PM EST Problem: Patient Care Overview Goal: Plan of Care Review Outcome: Ongoing (interventions implemented as appropriate) Flowsheets (Taken 09/08/2019 1621) Progress: improving Plan of Care Reviewed With: patient;daughter Outcome Summary: PT initial evaluation completed. Pt demonstrates generalized weakness and decreased indep re: functional mobility, warranting further skilled PT services to promote PLOF. Limited today by fatigue and c/o slight dizziness (hx vestibular baseline issues). Able to perform STS x2 with mod x2 A. Recommend SNF at d/c based upon current level of function. * Edvin Castellanos MS CCC-COMPANION CAREGIVER - 09/08/2019 1:10 PM EST Problem: Patient Care Overview Goal: Plan of Care Review Flowsheets (Taken 09/08/2019 1308) Plan of Care Reviewed With: patient;family Note: COMPANION CAREGIVER evaluation completed. Will proceed w/ FEES this PM to further assess swallow function . Please see note for further details and recommendations. * Satish Palacios RN - 09/08/2019 5:51 AM EST Problem: Patient Care Overview Goal: Plan of Care Review Outcome: Ongoing (interventions implemented as appropriate) Flowsheets (Taken 09/08/2019 1561) Progress: improving Plan of Care Reviewed With: patient Outcome Summary: Patient wore bipap all night. Diuresed well with about 2L out. Confused to place and situation at beginning of shift, now still confused to situation with occasional odd responses. VSS - tachypneic at times. Will trial HiFlow again this morning if patient awake. * Carolyne Russo RN - 09/07/2019 7:38 PM EST Extubated @1218; alternating high flow nasal canula and CPAP; nare swabs positive for MRSA & parainfluenza virus 1; placed in contact isolation; diuresed more than 4 liters * Priscila Zeng RN - 09/07/2019 5:33 AM EST Problem: Patient Care Overview Goal: Plan of Care Review 09/07/2019 05 by Priscila Zeng RN Outcome: Ongoing (interventions implemented as appropriate) Flowsheets Taken 09/07/2019 0532 Progress: no change Taken 09/07/2019 0300 Plan of Care Reviewed With: son Taken 09/07/2019 05 Outcome Summary: Pt. admitted from OSH with respiratory failure, intubated and sedated. Vital signsstable; afebrile. Propofol drip continued for sedation. Otto catheter from OSH D/C'd and new foleyinserted; UA with culture if indicated sent to lab. Antibiotics restarted from OSH. Plans for diuresis and ventilator weaning. * Priscila Zeng RN - 09/07/2019 5:32 AM EST Problem: Skin Injury Risk (Adult) Goal: Skin Health and Integrity Outcome: Ongoing (interventions implemented as appropriate) Flowsheets (Taken 09/07/2019 05) Skin Health and Integrity: making progress toward outcome * Cb Scruggs RN - 09/06/2019 8:59 PM EST ACC REVIEW REPORT: [facility] PATIENT NAME: Nam Mayberry BED: N221 BED TYPE: ICU BED GIVEN TO: AMADOU STEVENS RN TIME BED GIVEN: 2104 BIRTHDATE: 1950 AGE: 69 GENDER: FEMALE PREVIOUS ADMIT TO [facility]: YES PREVIOUS ADMISSION DATE: 08/23/14 PATIENT CLASS: INPATIENT TODAY'S DATE: 09/06/2019 TRANSFER DATE: 09/06/19 ETA: [facility]AC[facility] PHONE # : [phone] EXT [id number] TRANSFERRING MD: ISMAEL DATE/TIME REQUEST RECEIVED: 09/04/19 @ [address] [facility] RN: CB SCRUGGS RN REPORT FROM: AMADOU STEVENS RN TIME REPORT TAKEN: 2104 DIAGNOSIS: ACUTE RESPIRATORY FAILURE REASON FOR TRANSFER TO [facility]: HIGHER LEVEL OF C ARE TRANSPORTATION: AMBULANCE CLINICAL REASON FOR TRANSFER TO [facility]: HIGHER LEVEL OF CARE CLINICAL INFORMATION HEIGHT: 62 INCHES WEIGHT: 340 LBS ALLERGIES: Agent Severity Comments Codeine High Contrast Dye High Penicillins High Bactrim [Sulfamethoxazole-trimethoprim] Ciprofloxacin OTTO: YES PLACED 09/04 INFECTIOUS DISEASE: ECOLI IN URINE CULTURE ISOLATION: NO LAST VITAL SIGNS: TIME: TEMP: 99.3 (RECTAL) PULSE: 67 B/P: 165/84 RESP: 12 LAB INFORMATION: UNREMARKABLE (COPY WILL BE SENT OF LAB WORK) CULTURE INFORMATION: URINE, SPUTUM MEDS/IV FLUIDS: #18 LEFT AC #20 RIGHT FA PROPOFOL 20 MCG/MIN LOVENOX 40 MG/BID TUBE FEED CURRENT RATE 30ML/HR GOAL 34 INVANCE AZITHROMYCIN LANTUS INSULIN SLIDING SCALE LR @ 125 ML/HR LASIX FULL MEDICATION LIST WILL BE SENT WITH PATIENT CARDIAC SYSTEM: CHEST PAIN: NO RATE: SCALE: RHYTHM: NSR Is patient taking or has patient been given any drugs that could increase bleeding? NO (Plavix, Brilinta, Effient, Eliquis, Xarelto, Warfarin, Integrilin, Angiomax) DRUG: DOSE/FREQUENCY: ECHO WAS PERFORMED: EF 50% RESPIRATORY SYSTEM: LUNG SOUNDS: CLEAR: YES CRACKLES: WHEEZES: RHONCHI: DIMINISHED: ABG DATE: 09/06/19 ABG TIME: ABG RESULTS: PH: 7.37 PO2: 69.2 PCO2:63 HCO3: 36.0 O2 SAT: 91% ETT: YES ETT SIZE: 7.5 ORAL: YES NASAL: SECURED AT MEASUREMENT (CM): 20@LIP ON VENTILATOR: TV: 400 FI02: 40% RATE: 12 PEEP: 6 OXYGEN: 40% O2 SAT: 91% ADMINISTRATION ROUTE: VENT RADIOLOGY RESULTS: IMPROVEMENT OF INFILTRATES RESPIRATORY STATUS: INTUBATED SAFEKEEPING CLERK/MUSCULOSKELETAL ALEXI COMA SCALE: E: M: V: GI//GY ABDOMINAL PAIN: NO VOMITING: DIARRHEA: NAUSEA: BOWEL SOUNDS: ACTIVE OCCULT STOOL: VAGINAL BLEEDING: NO TESTICULAR PAIN: N/A HEMATURIA: NO NG TUBE: SIZE: 16 FR DATE INSERTED: 09/05/19 PAST MEDICAL HISTORY: OTHER SYMPTOM NOTES: Diagnosis Date Comment Source Anxiety Provider Cancer ([facility]) Provider Depression Provider Diabetes mellitus ([facility]) Provider Hyperlipidemia Provider Hypertension Provider SLEEP APNEA A-FIB CHF HSP (HENOCH-SCHONLEIN PURPURA Past Surgical History Laterality Last Occurrence Comments Hysterectomy [SHX81] 1989 Oophorectomy [SHX86] Bilateral 1989 Cataract extraction [SUR2] Left 2019 Pertinent Negatives Last Occurrence Comments BREAST BIOPSY [SHX20] 11/30/2018 BREAST CYST ASPIRATION [BZA175] 11/30/2018 ADDITIONAL NOTES: PATIENT WITH MOISTURE ASSOCIATED SKIN BREAKDOWN TO AREAS UNDER THE BREAST, ABDOMINAL SKIN FOLDS AND GROIN AREA Cb Scruggs RN 09/06/2019 9:00 PM documented in this encounter Miscellaneous Notes * Therapy Treatment Note - Yumiko Bower, CCC-COMPANION CAREGIVER - 09/14/2019 10:27 AM EST Acute Care - Speech Language Pathology NICU/PEDS Progress Note JAM Mcclelland Patient Name: Nam Mayberry : 1950 Today's Date: 09/14/2019 Onset of Illness/Injury or Date of Surgery: 09/07/19 Referring Physician: Dr. Galvan Admit Date: 09/07/2019 Visit Dx: ICD-10-CM ICD-9-CM 1. Impaired mobility and ADLs Z74.09 799.89 2. Pharyngeal dysphagia R13.13 787.23 Patient Active Problem List Diagnosis ??? Edema, peripheral ??? Anxiety, generalized ??? Dyslipidemia on statin ??? Essential hypertension ??? Laryngeal spasm ??? Vertigo ??? T2DM ??? H/O Asthma ??? Perennial rhinitis ??? GERD ??? Jimenez esophagus ??? DELL ??? Obesity hypoventilation syndrome ??? B12 deficiency ? ? Super obesity (BMI > 50) ??? DELL on CPAP ??? Chronic anticoagulation on Xarelto ??? Hx of Henoch-Schonlein purpura diagnosed 2005 with frequent steroid use for vasculitis (last course 08/17/2019) ??? Hypothyroidism ??? Chronic steroid use ??? Recent diagnosis of atrial fibrillation and placed on Xarelto ??? Morbid obesity with BMI of 50.0-59.9, adult ??? 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 HFrEF ??? History of asthma but no obstruction on PFTs. Questionable acute exacerbation this admission ??? Mild LLL CAP. MRSA PCR positive on nasal swab and respiratory panel positive for parainfluenza virus ??? E. coli UTI 09/04/2019 Therapy Treatment Rehabilitation Treatment Summary Row Name 09/14/19 1000 Treatment Time/Intention Discipline speech language pathologist -AV Document Type therapy note (daily note) -AV Subjective Information no complaints -AV Mode of Treatment speech-language pathology -AV Therapy Frequency (Swallow) 3 days per week -AV Patient Effort good -AV Recorded by [AV] Yumiko Bower MS CCC-COMPANION CAREGIVER 09/14/19 1026 Row Name 09/14/19 1000 Pain Assessment Additional Documentation Pain Scale: FACES Pre/Post-Treatment (Group) -AV Recorded by [AV] Yumiko Bower MS CCC-COMPANION CAREGIVER 09/14/19 1026 Row Name 09/14/19 1000 Pain Scale: FACES Pre/Post-Treatment Pain: FACES Scale, Pretreatment 0-->no hurt -AV Pain: FACES Scale, Post-Treatment 0-->no hurt -AV Recorded by [AV] Yumiko Bower MS CCC-COMPANION CAREGIVER 09/14/19 1026 Row Name Wound 09/07/19 0200 lower abdomen MASD (Moisutre associated skin damage) Wound - Properties Group Date first assessed: 09/07/19 [WG] Time first assessed: 0200 [WG] Present on Hospital Admission: Y [WG] Orientation: lower [WG] Location: abdomen [WG] Primary Wound Type: MASD [WG] Recorded by: [WG] Priscila Zeng RN 09/07/19 0607 Row Name 09/14/19 1000 Outcome Summary/Treatment Plan (COMPANION CAREGIVER) Daily Summary of Progress (COMPANION CAREGIVER) progress toward functional goals is good -AV Plan for Continued Treatment (COMPANION CAREGIVER) cont monitoring. possible discharge to rehab -AV Anticipated Dischage Disposition unknown;anticipate therapy at next level of care -AV Recorded by [AV] Yumiko Bower, MS CCC-COMPANION CAREGIVER 09/14/19 1026 User Patrick (r) = Recorded By, (t) = Taken By, (c) = Cosigned By Initials Name Effective Dates Discipline WG Priscila Zeng RN 02/21/16 - Nurse AV Yumiko Bower, MS CCC-COMPANION CAREGIVER 01/27/19 - COMPANION CAREGIVER COMPANION CAREGIVER GOALS Row Name 09/14/19 1000 09/12/19 1040 Oral Nutrition/Hydration Goal 1 (COMPANION CAREGIVER) Oral Nutrition/Hydration Goal 1, COMPANION CAREGIVER -- LTG: Pt will tolerate regular diet, thin liquids w/ no overt s/sxs aspiration/distress w/ 100% acc and no cues -RD Time Frame (Oral Nutrition/Hydration Goal 1, COMPANION CAREGIVER) -- by discharge -RD Barriers (Oral Nutrition/Hydration Goal 1, COMPANION CAREGIVER) -- No immediate s/s of aspiration w/ thin or solid trials. Educated on trialing meds in pureed instead of thins to decrease aspiration risk. -RD Progress/Outcomes (Oral Nutrition/Hydration Goal 1, COMPANION CAREGIVER) -- continuing progress toward goal -RD Oral Nutrition/Hydration Goal 2 (COMPANION CAREGIVER) Oral Nutrition/Hydration Goal 2, COMPANION CAREGIVER Pt will tolerate regular solids & thin liquids via small single cup sips w/ no overt s/sxs aspiration/distress w/ 100% acc and no cues -AV Pt will tolerate regular solids & thin liquids via small single cup sips w/ no overt s/sxs aspiration/distress w/ 100% acc and no cues -RD Time Frame (Oral Nutrition/Hydration Goal 2, COMPANION CAREGIVER) short term goal (STG);by discharge -AV short termgoal (STG);by discharge -RD Barriers (Oral Nutrition/Hydration Goal 2, COMPANION CAREGIVER) Tolerating diet w/o s/s of aspiration. CXR improving per chart. -AV Tolerating diet w/o s/s of aspiration. CXR improving per chart. -RD Progress/Outcomes (Oral Nutrition/Hydration Goal 2, COMPANION CAREGIVER) continuing progress toward goal -AV continuing progress toward goal -RD Pharyngeal Strengthening Exercise Goal 1 (COMPANION CAREGIVER) Activity (Pharyngeal Strengthening Goal 1, COMPANION CAREGIVER) increase superior movement of the hyolaryngeal complex;increase anterior movement of the hyolaryngeal complex;increase closure at entrance to airway/closure of airway at glottis;increase squeeze/positive pressure generation;increase tongue base retraction -AV increase superior movement of the hyolaryngeal complex;increase anterior movement of the hyolaryngeal complex;increase closure at entrance to airway/closure of airway at glottis;increase squeeze/positive pressure generation;increase tongue base retraction -RD Increase Superior Movement of the Hyolaryngeal Complex effortful pitch glide (falsetto + pharyngealsqueeze);Darryn -AV effortful pitch glide (falsetto + pharyngeal squeeze);Darryn -RD Increase Anterior Movement of the Hyolaryngeal Complex chin tuck against resistance (CTAR) -AV chintuck against resistance (CTAR) -RD Increase Closure at Entrance to Airway/Closure of Airway at Glottis super- supraglottic swallow -AV super-supraglottic swallow -RD Increase Squeeze/Positive Pressure Generation hard effortful swallow -AV hard effortful swallow -RD Increase Tongue Base Retraction adan -AV adan -RD Lenore/Accuracy (Pharyngeal Strengthening Goal 1, COMPANION CAREGIVER) with minimal cues (75-90% accuracy) -AV with minimal cues (75-90% accuracy) -RD Time Frame (Pharyngeal Strengthening Goal 1, COMPANION CAREGIVER) short term goal (STG);by discharge -AV short termgoal (STG);by discharge -RD Barriers (Pharyngeal Strengthening Goal 1, COMPANION CAREGIVER) -- Reviewed and completed exercises. Left handout in pt's room -RD Progress/Outcomes (Pharyngeal Strengthening Goal 1, COMPANION CAREGIVER) continuing progress toward goal -AV continuing progress toward goal -RD Swallow Management Recall Goal 1 (COMPANION CAREGIVER) Activity (Swallow Management Recall Goal 1, COMPANION CAREGIVER) recall of;safe diet/liquid level;safe diet level/texture;compensatory swallow strategies/techniques -AV recall of;safe diet/liquid level;safe diet level/texture;compensatory swallow strategies/techniques -RD Lenore/Accuracy (Swallow Management Recall Goal 1, COMPANION CAREGIVER) with minimal cues (75-90% accuracy) -AV with minimal cues (75-90% accuracy) -RD Time Frame (Swallow Management Recall Goal 1, COMPANION CAREGIVER) short term goal (STG);by discharge -AV short term goal (STG);by discharge -RD Progress/Outcomes (Swallow Management Recall Goal 1, COMPANION CAREGIVER) continuing progress toward goal -AV continuing progress toward goal -RD Swallow Compensatory Strategies Goal 1 (COMPANION CAREGIVER) Activity (Swallow Compensatory Strategies/Techniques Goal 1, COMPANION CAREGIVER) small cup sips;other (see comments);during p.o. trials;during meal intake -AV small cup sips;other (see comments);during p.o. trials;during meal intake no straws -RD Lenore/Accuracy (Swallow Compensatory Strategies/Techniques Goal 1, COMPANION CAREGIVER) independently (over 90% accuracy) -AV independently (over 90% accuracy) -RD Time Frame (Swallow Compensatory Strategies/Techniques Goal 1, COMPANION CAREGIVER) short term goal (STG);by discharge -AV short term goal (STG);by discharge -RD Barriers (Swallow Compensatory Strategies/Techniques Goal 1, COMPANION CAREGIVER) -- pt able to teach back compensations and demonstrate w/ min cues -RD Progress/Outcomes (Swallow Compensatory Strategies/Techniques Goal 1, COMPANION CAREGIVER) continuing progress toward goal -AV continuing progress toward goal -RD User Patrick (r) = Recorded By, (t) = Taken By, (c) = Cosigned By Initials Name Provider Type Yumiko Fernández MS CCC-COMPANION CAREGIVER Speech and Language Pathologist Luz Marina Acosta MS CCC-COMPANION CAREGIVER Speech and Language Pathologist EDUCATION The patient has been educated in the following areas: Dysphagia (Swallowing Impairment) Oral Care/Hydration. COMPANION CAREGIVER Recommendation and Plan Plan for Continued Treatment (COMPANION CAREGIVER): cont monitoring. possible discharge to rehab Plan of Care Review Plan of Care Reviewed With: patient Daily Summary of Progress (COMPANION CAREGIVER): progress toward functional goals is good Plan of Care Reviewed With: patient Time Calculation: Time Calculation- COMPANION CAREGIVER Row Name 09/14/19 1027 Time Calculation- COMPANION CAREGIVER COMPANION CAREGIVER Start Time 0945 -AV COMPANION CAREGIVER Received On 09/14/19 -AV User Patrick (r) = Recorded By, (t) = Taken By, (c) = Cosigned By Initials Name Provider Type Yumiko Fernández MS CCC-COMPANION CAREGIVER Speech and Language Pathologist Therapy Charges for Today Code Description Service Date Service Provider Modifiers Qty [id number] ST TREATMENT SWALLOW 2 09/14/2019 Yumiko Bower MS CCC- COMPANION CAREGIVER GN 1 MS GRACE Gregorio 09/14/2019 * Therapy Treatment Note - DelonSona ibarra Jerrod, PT - 09/13/2019 2:22 PM EST Patient Name: Nam Mayberry : 1950 Today's Date: 09/13/2019 Admit Date: 09/07/2019 Visit Dx: ICD-10-CM ICD-9-CM 1. Impaired mobility and ADLs Z74.09 799.89 2. Pharyngeal dysphagia R13.13 787.23 Patient Active Problem List Diagnosis ??? Edema, peripheral ??? Anxiety, generalized ??? Dyslipidemia on statin ??? Essential hypertension ??? Laryngeal spasm ??? Vertigo ??? T2DM ??? H/O Asthma ??? Perennial rhinitis ??? GERD ??? Jimenez esophagus ??? DELL ??? Obesity hypoventilation syndrome ??? B12 deficiency ? ? Super obesity (BMI > 50) ??? DELL on CPAP ??? Chronic anticoagulation on Xarelto ??? Hx of Henoch-Schonlein purpura diagnosed 2004 with frequent steroid use for vasculitis (last course 08/17/2019) ??? Hypothyroidism ??? Chronic steroid use ??? Recent diagnosis of atrial fibrillation and placed on Xarelto ??? Morbid obesity with BMI of 50.0-59.9, adult ??? 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 HFrEF ??? History of asthma but no obstruction on PFTs. Questionable acute exacerbation this admission ??? Mild LLL CAP. MRSA PCR positive on nasal swab and respiratory panel positive for parainfluenza virus ??? E. coli UTI 09/04/2019 Past 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: Diagnosis Date ??? Anxiety [...] ??? HYSTERECTOMY 1989 ??? OOPHORECTOMY Bilateral 1989 General Information Row Name 09/13/19 1503 PT Evaluation Time/Intention Document Type therapy note (daily note) -CD Mode of Treatment physical therapy -CD Row Name 09/13/19 1503 General Information Patient Profile Reviewed? yes -CD Existing Precautions/Restrictions fall;oxygen therapy device and L/min -CD Barriers to Rehab medically complex;previous functional deficit -CD Row Name 09/13/19 1503 Safety Issues, Functional Mobility Safety Issues Affecting Function (Mobility) safety precautions follow- through/compliance;safety precaution awareness -CD Impairments Affecting Function (Mobility) balance;endurance/activity tolerance;shortness of breath;strength -CD User Patrick (r) = Recorded By, (t) = Taken By, (c) = Cosigned By Initials Name Provider Type CD Sona Reed, PT Physical Therapist Mobility Row Name 09/13/19 1504 Bed Mobility Assessment/Treatment Comment (Bed Mobility) PT SITTING ON COMMODE UPON ARRIVAL WITH NSG/DTR PRESENT. -CD Row Name 09/13/19 1504 Transfer Assessment/Treatment Comment (Transfers) STS FROM COMMODE WITH CUES FOR HAND PLACEMENT. -CD Row Name 09/13/19 1504 Sit-Stand Transfer Sit-Stand Lenore (Transfers) minimum assist (75% patient effort) -CD Assistive Device (Sit-Stand Transfers) walker, front-wheeled -CD Row Name 09/13/19 1504 Gait/Stairs Assessment/Training Gait/Stairs Assessment/Training gait/ambulation independence -CD Lenore Level (Gait) verbal cues -CD Assistive Device (Gait) walker, front-wheeled -CD Distance in Feet (Gait) 65 FEET ON 3L O2. -CD Pattern (Gait) step-through -CD Deviations/Abnormal Patterns (Gait) margaret decreased;stride length decreased -CD Bilateral Gait Deviations forward flexed posture;heel strike decreased -CD Comment (Gait/Stairs) 2 STANDING REST BREAKS WITH CUES FOR PLB. CUES FOR UPRIGHT POSTURE AND MANUALASSIST TO NEGOTIATE TURNS WITH R WALKER. -CD User Patrick (r) = Recorded By, (t) = Taken By, (c) = Cosigned By Initials Name Provider Type CD Karen Reedie A, PT Physical Therapist Obj/Interventions Row Name 09/13/19 1506 Therapeutic Exercise Lower Extremity (Therapeutic Exercise) LAQ (long arc quad), bilateral;heel slides, bilateral -CD Lower Extremity Range of Motion (Therapeutic Exercise) ankle dorsiflexion/plantar flexion, bilateral -CD Exercise Type (Therapeutic Exercise) AROM (active range of motion);AAROM (active assistive range ofmotion) AAROM FOR HEEL SLIDES. CUES TO PUSH AWAY WITH EXTENSION. -CD Position (Therapeutic Exercise) seated -CD Sets/Reps (Therapeutic Exercise) 1 SET OF 10 REPS. -CD Row Name 09/13/19 1506 Static Sitting Balance Level of Lenore (Unsupported Sitting, Static Balance) supervision -CD Sitting Position (Unsupported Sitting, Static Balance) -- ON COMMODE. -CD Time Able to Maintain Position (Unsupported Sitting, Static Balance) more than 5 minutes -CD Row Name 09/13/19 1506 Static Standing Balance Level of Lenore (Supported Standing, Static Balance) contact guard assist -CD Assistive Device Utilized (Supported Standing, Static Balance) walker, rolling -CD Row Name 09/13/19 1506 Dynamic Standing Balance Level of Lenore, Reaches Outside Midline (Standing, Dynamic Balance) minimal assist, 75% patient effort -CD Assistive Device Utilized (Supported Standing, Dynamic Balance) walker, rolling -CD Comment, Reaches Outside Midline (Standing, Dynamic Balance) GAIT IN SCRUGGS. -CD User Patrick (r) = Recorded By, (t) = Taken By, (c) = Cosigned By Initials Name Provider Type Sona Reed, PT Physical Therapist Goals/Plan No documentation. Clinical Impression Row Name 09/13/19 1509 Pain Scale: Numbers Pre/Post-Treatment Pain Location back -CD Pain Intervention(s) Ambulation/increased activity;Repositioned -CD Row Name 09/13/19 1509 Pain Scale: FACES Pre/Post-Treatment Pain: FACES Scale, Pretreatment 2-->hurts little bit -CD Pain: FACES Scale, Post-Treatment 2-->hurts little bit -CD Row Name 09/13/19 1509 Plan of Care Review Plan of Care Reviewed With patient;daughter -CD Outcome Summary PT NEEDS CUES FOR SAFETY WITH MOBILITY. AMBULATED 65 FEET WITH MIN ASSIST AND R WALKER ON 3L O2. REQUIRED ONE STANDING REST BREAK ON 3L O2 WITH CUES FOR PLB. RECOMMEND PULMONARY REHABAT D/C FOR RETURN TO MAX LEVEL OF FUNCTION BEFORE HOME. -CD Row Name 09/13/19 1509 Physical Therapy Clinical Impression Patient/Family Goals Statement (PT Clinical Impression) AGREES TO ONGOING P.T. D/C DISPOSITION IS PENDING. -CD Criteria for Skilled Interventions Met (PT Clinical Impression) yes;treatment indicated -CD Rehab Potential (PT Clinical Summary) good, to achieve stated therapy goals -CD Row Name 09/13/19 1509 Vital Signs Post Systolic BP Rehab 157 -CD Post Treatment Diastolic BP 93 -CD Posttreatment Heart Rate (beats/min) 94 -CD Pre SpO2 (%) 92 -CD O2 Delivery Pre Treatment supplemental O2 -CD O2 Delivery Intra Treatment supplemental O2 -CD Post SpO2 (%) 92 -CD O2 Delivery Post Treatment supplemental O2 -CD Pre Patient Position Sitting -CD Intra Patient Position Standing -CD Post Patient Position Sitting -CD Row Name 09/13/19 1509 Positioning and Restraints Pre-Treatment Position bathroom -CD Post Treatment Position chair -CD In Chair reclined;call light within reach;legs elevated;encouraged to call for assist;exit alarm on;with family/caregiver -CD User Patrick (r) = Recorded By, (t) = Taken By, (c) = Cosigned By Initials Name Provider Type Sona Shannon, PT Physical Therapist Outcome Measures Row Name 09/13/19 1514 How much help from another person do you currently need... Turning from your back to your side while in flat bed without using bedrails? 3 -CD Moving from lying on back to sitting on the side of a flat bed without bedrails? 3 -CD Moving to and from a bed to a chair (including a wheelchair)? 3 -CD Standing up from a chair using your arms (e.g., wheelchair, bedside chair)? 3 -CD Climbing 3-5 steps with a railing? 2 -CD To walk in hospital room? 3 -CD AM-PAC 6 Clicks Score (PT) 17 -CD Row Name 09/13/19 1514 Functional Assessment Outcome Measure Options AM-PAC 6 Clicks Basic Mobility (PT) -CD User Patrick (r) = Recorded By, (t) = Taken By, (c) = Cosigned By Initials Name Provider Type CD Duby, Sona A, PT Physical Therapist PT Recommendation and Plan Outcome Summary/Treatment Plan (PT) Anticipated Equipment Needs at Discharge (PT): front wheeled walker Anticipated Discharge Disposition (PT): inpatient rehabilitation facility(WOULD BENEFIT FROM PULMONARY REHAB. ) Plan of Care Reviewed With: patient, daughter Outcome Summary: PT NEEDS CUES FOR SAFETY WITH MOBILITY. AMBULATED 65 FEET WITH MIN ASSIST AND R WALKER ON 3L O2. REQUIRED ONE STANDING REST BREAK ON 3L O2 WITH CUES FOR PLB. RECOMMEND PULMONARY REHAB AT D/C FOR RETURN TO MAX LEVEL OF FUNCTION BEFORE HOME. Time Calculation: PT Charges Row Name 09/13/19 1517 Time Calculation Start Time 1422 -CD PT Received On 09/13/19 - PT Goal Re-Cert Due Date 09/18/19 - Time Calculation- PT Total Timed Code Minutes- PT 33 minute(s) -CD Timed Charges 40201 - PT Therapeutic Exercise Minutes 8 -CD 92471 - Gait Training Minutes 15 -CD 19523 - PT Therapeutic Activity Minutes 10 -CD User Patrick (r) = Recorded By, (t) = Taken By, (c) = Cosigned By Initials Name Provider Type CD Sona Reed PT Physical Therapist Therapy Charges for Today Code Description Service Date Service Provider Modifiers Qty [id number] HC GAIT TRAINING EA 15 MIN 09/13/2019 Sona Reed, PT GP 1 15778182619 HC PT THERAPEUTIC ACT EA 15 MIN 09/13/2019 Sona Reed, PT GP 1 51447979348 HC PT THER SUPP EA 15 MIN 09/13/2019 Sona Reed, PT GP 2 PT G-Codes Outcome Measure Options: AM-PAC 6 Clicks Basic Mobility (PT) AM-PAC 6 Clicks Score (PT): 17 AM-PAC 6 Clicks Score (OT): 12 Sona Reed PT 09/13/2019 * Therapy Treatment Note - Meenakshi Menjivar, PT - 09/12/2019 11:36 AM EST Patient Name: Nam Mayberry : 1950 Today's Date: 09/12/2019 Admit Date: 09/07/2019 Visit Dx: ICD-10-CM ICD-9-CM 1. Impaired mobility and ADLs Z74.09 799.89 2. Pharyngeal dysphagia R13.13 787.23 Patient Active Problem List Diagnosis ??? Edema, peripheral ??? Anxiety, generalized ??? Dyslipidemia on statin ??? Essential hypertension ??? Laryngeal spasm ??? Vertigo ??? T2DM ??? H/O Asthma ??? Perennial rhinitis ??? GERD ??? Jimenez esophagus ??? DELL ??? Obesity hypoventilation syndrome ??? B12 deficiency ? ? Super obesity (BMI > 50) ??? DELL on CPAP ??? Chronic anticoagulation on Xarelto ??? Hx of Henoch-Schonlein purpura diagnosed 2004 with frequent steroid use for vasculitis (last course 08/17/2019) ??? Hypothyroidism ??? Chronic steroid use ??? Recent diagnosis of atrial fibrillation and placed on Xarelto ??? Morbid obesity with BMI of 50.0-59.9, adult ??? 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 HFrEF ??? History of asthma but no obstruction on PFTs. Questionable acute exacerbation this admission ??? Mild LLL CAP. MRSA PCR positive on nasal swab and respiratory panel positive for parainfluenza virus ??? E. coli UTI 09/04/2019 Past 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: Diagnosis Date ??? Anxiety [...] ??? CATARACT EXTRACTION Left 2018 ??? HYSTERECTOMY 1990 ??? OOPHORECTOMY Bilateral 1989 General Information Row Name 09/12/19 1212 PT Evaluation Time/Intention Document Type therapy note (daily note) -LS Mode of Treatment physical therapy - Row Name 09/12/19 1212 General Information Existing Precautions/Restrictions fall;oxygen therapy device and L/min -LS Row Name 09/12/19 1212 Cognitive Assessment/Intervention- PT/OT Orientation Status (Cognition) oriented x 4 -LS User Patrick (r) = Recorded By, (t) = Taken By, (c) = Cosigned By Initials Name Provider Type LS Meenakshi Menjivar, PT Physical Therapist Mobility Row Name 09/12/19 1212 Bed Mobility Assessment/Treatment Bed Mobility Assessment/Treatment supine-sit -LS Supine-Sit Lenore (Bed Mobility) minimum assist (75% patient effort);verbal cues -LS Assistive Device (Bed Mobility) draw sheet;head of bed elevated;leg bit gatherer - Row Name 09/12/19 1212 Sit-Stand Transfer Sit-Stand Lenore (Transfers) minimum assist (75% patient effort);verbal cues -LS Assistive Device (Sit-Stand Transfers) walker, front-wheeled - Row Name 09/12/19 1212 Gait/Stairs Assessment/Training Gait/Stairs Assessment/Training gait/ambulation independence -LS Lenore Level (Gait) minimum assist (75% patient effort);verbal cues -LS Assistive Device (Gait) walker, front-wheeled -LS Distance in Feet (Gait) 80 -LS Deviations/Abnormal Patterns (Gait) stride length decreased;margaret decreased -LS Bilateral Gait Deviations forward flexed posture;heel strike decreased -LS Comment (Gait/Stairs) VC for upright posture and keeping RW close to body; distance limited by c/o LE fatigue but no seated rest break required. -LS User Patrick (r) = Recorded By, (t) = Taken By, (c) = Cosigned By Initials Name Provider Type LS Meenakshi Menjivar, PT Physical Therapist Obj/Interventions Row Name 09/12/19 1214 Therapeutic Exercise Upper Extremity Range of Motion (Therapeutic Exercise) elbow flexion/extension, bilateral;shoulder horizontal abduction/adduction, bilateral -LS Lower Extremity (Therapeutic Exercise) gluteal sets;quad sets, bilateral -LS Lower Extremity Range of Motion (Therapeutic Exercise) ankle dorsiflexion/plantar flexion, bilateral -LS Exercise Type (Therapeutic Exercise) AROM (active range of motion) -LS Position (Therapeutic Exercise) supine -LS Sets/Reps (Therapeutic Exercise) 09/16 - Row Name 09/12/19 1214 Static Sitting Balance Level of Lenore (Unsupported Sitting, Static Balance) supervision -LS Sitting Position (Unsupported Sitting, Static Balance) sitting on edge of bed - Row Name 09/12/19 1214 Static Standing Balance Level of Lenore (Supported Standing, Static Balance) contact guard assist -LS Assistive Device Utilized (Supported Standing, Static Balance) walker, rolling - User Patrick (r) = Recorded By, (t) = Taken By, (c) = Cosigned By Initials Name Provider Type Meenakshi pSring, PT Physical Therapist Goals/Plan No documentation. Clinical Impression Row Name 09/12/19 1215 Pain Scale: Numbers Pre/Post-Treatment Pain Scale: Numbers, Pretreatment 0/10 - no pain -LS Pain Scale: Numbers, Post-Treatment 0/10 - no pain -LS Row Name 09/12/19 1215 Plan of Care Review Plan of Care Reviewed With patient -LS Progress improving -LS Outcome Summary Pt demonstrated ability to progress forward ambulation distance to 80 total ft withuse of RW, min A. Distance limited by c/o BLE fatigue, but no seated rest break required today. Edupt re: benefit of further ther ex throughout day. Will cont PT POC; cont to recommend SNF at d/c based upon current level of mobility/ functional endurance. - Row Name 09/12/19 1215 Vital Signs O2 Delivery Pre Treatment nasal cannula -LS O2 Delivery Intra Treatment nasal cannula -LS O2 Delivery Post Treatment nasal cannula -LS Pre Patient Position Supine -LS Intra Patient Position Standing -LS Post Patient Position Sitting - Row Name 09/12/19 1215 Positioning and Restraints Pre-Treatment Position in bed -LS Post Treatment Position wheelchair -LS In Wheelchair notified nsg;sitting;call light within reach;encouraged to call for assist;legs elevated -LS User Patrick (r) = Recorded By, (t) = Taken By, (c) = Cosigned By Initials Name Provider Type Meenakshi Spring, PT Physical Therapist Outcome Measures Row Name 09/12/19 1217 How much help from another person do you currently need... Turning from your back to your side while in flat bed without using bedrails? 3 -LS Moving from lying on back to sitting on the side of a flat bed without bedrails? 3 -LS Moving to and from a bed to a chair (including a wheelchair)? 3 -LS Standing up from a chair using your arms (e.g., wheelchair, bedside chair)? 3 -LS Climbing 3-5 steps with a railing? 2 -LS To walk in hospital room? 3 -LS AM-PAC 6 Clicks Score (PT) 17 -LS User Patrick (r) = Recorded By, (t) = Taken By, (c) = Cosigned By Initials Name Provider Type LS Meenakshi Menjivar, PT Physical Therapist PT Recommendation and Plan Planned Therapy Interventions (PT Eval): balance training, bed mobility training, gait training, home exercise program, strengthening, transfer training, patient/family education Outcome Summary/Treatment Plan (PT) Anticipated Discharge Disposition (PT): nursing home facility Plan of Care Reviewed With: patient Progress: improving Outcome Summary: Pt demonstrated ability to progress forward ambulation distance to 80 total ft with use of RW, min A. Distance limited by c/o BLE fatigue, but no seated rest break required today. Edu pt re: benefit of further ther ex throughout day. Will cont PT POC; cont to recommend SNF at d/c based upon current level of mobility/ functional endurance. Time Calculation: PT Charges Row Name 09/12/19 1219 Time Calculation Start Time 1136 - PT Received On 09/12/19 - Time Calculation- PT Total Timed Code Minutes- PT 24 minute(s) -LS Timed Charges 67508 - PT Therapeutic Exercise Minutes 4 -LS 44172 - PT Therapeutic Activity Minutes 20 -LS User Patrick (r) = Recorded By, (t) = Taken By, (c) = Cosigned By Initials Name Provider Type Meenakshi Spring, PT Physical Therapist Therapy Charges for Today Code Description Service Date Service Provider Modifiers Qty [id number] PT THERAPEUTIC ACT EA 15 MIN 09/12/2019 Meenakshi Menjivar, PT GP 1 [id number] HC PT THER PROC EA 15 MIN 09/12/2019 Meenakshi Menjivar, PT GP 1 PT G-Codes Outcome Measure Options: AM-PAC 6 Clicks Daily Activity (OT) AM-PAC 6 Clicks Score (PT): 17 AM-PAC 6 Clicks Score (OT): 12 Meenakshi Menjivar PT 09/12/2019 * Therapy Treatment Note - DaciaelvirajoelLuz Marina, MS CCC-COMPANION CAREGIVER - 09/12/2019 10:40 AM EST Acute Care - Speech Language Pathology Swallow Treatment Note JAM Mcclelland Patient Name: Nam Mayberry : 1950 Today's Date: 09/12/2019 Onset of Illness/Injury or Date of Surgery: 09/07/19 Referring Physician: Dr. Galvan Admit Date: 09/07/2019 Visit Dx: ICD-10-CM ICD-9-CM 1. Impaired mobility and ADLs Z74.09 799.89 2. Pharyngeal dysphagia R13.13 787.23 Patient Active Problem List Diagnosis ??? Edema, peripheral ??? Anxiety, generalized ??? Dyslipidemia on statin ??? Essential hypertension ??? Laryngeal spasm ??? Vertigo ??? T2DM ??? H/O Asthma ??? Perennial rhinitis ??? GERD ??? Jimenez esophagus ??? DELL ??? Obesity hypoventilation syndrome ??? B12 deficiency ? ? Super obesity (BMI > 50) ??? DELL on CPAP ??? Chronic anticoagulation on Xarelto ??? Hx of Henoch-Schonlein purpura diagnosed 2005 with frequent steroid use for vasculitis (last course 08/17/2019) ??? Hypothyroidism ??? Chronic steroid use ??? Recent diagnosis of atrial fibrillation and placed on Xarelto ??? Morbid obesity with BMI of 50.0-59.9, adult ??? Acute on chronic mixed hypoxemic/hypercarbic respiratory failure acquiring ventilatory support 09/04/2019 ([facility]) ??? HFrEF ??? History of asthma but no obstruction on PFTs. Questionable acute exacerbation this admission ??? Mild LLL CAP. MRSA PCR positive on nasal swab and respiratory panel positive for parainfluenza virus ??? E. coli UTI 09/04/2019 Therapy Treatment Rehabilitation Treatment Summary Row Name 09/12/19 1040 Treatment Time/Intention Discipline speech language pathologist -RD Mode of Treatment individual therapy;speech-language pathology -RD Care Plan Review evaluation/treatment results reviewed;care plan/treatment goals reviewed;risks/benefits reviewed;current/potential barriers reviewed;patient/other agree to care plan -RD Therapy Frequency (Swallow) 3 days per week -RD Recorded by [RD] Luz Marina Kelly MS CCC-COMPANION CAREGIVER 09/12/19 1137 Row Name 09/12/19 1040 Pain Scale: Numbers Pre/Post-Treatment Pain Scale: Numbers, Pretreatment 0/10 - no pain -RD Pain Scale: Numbers, Post-Treatment 0/10 - no pain -RD Recorded by [RD] Luz Marina Kelly MS CCC-COMPANION CAREGIVER 09/12/19 1137 Row Name Wound 09/07/19 0200 lower abdomen MASD (Moisutre associated skin damage) Wound - Properties Group Date first assessed: 09/07/19 [WG] Time first assessed: 199 [WG] Present on Hospital Admission: Y [WG] Orientation: lower [WG] Location: abdomen [WG] Primary Wound Type: MASD [WG] Recorded by: [WG] Priscila Zeng RN 09/07/19 0607 Row Name 09/12/19 1040 Outcome Summary/Treatment Plan (COMPANION CAREGIVER) Daily Summary of Progress (COMPANION CAREGIVER) progress toward functional goals as expected -RD Plan for Continued Treatment (COMPANION CAREGIVER) Continue to address dysphagia during treatment. Pt able to teachback compensations for small single sips & no straws w/ min cues. No overt s/s w/ thins or solid trials w/ compensations. Baseline coughing after breathing treatement per pt. Pt reports difficulty w/ non- cohesive solids prior to admit-educated on ways to avoid/modify non-cohesives. Will providehandout during next treatement session. -RD Anticipated Dischage Disposition unknown;anticipate therapy at next level of care -RD Recorded by [RD] Luz Marina Kelly MS CCC-COMPANION CAREGIVER 09/12/19 1137 User Patrick (r) = Recorded By, (t) = Taken By, (c) = Cosigned By Initials Name Effective Dates Discipline WG Priscila Zeng RN 02/21/16 - Nurse RD Luz Marina Kelly MS CCC-COMPANION CAREGIVER 12/08/17 - COMPANION CAREGIVER Outcome Summary Outcome Summary/Treatment Plan (COMPANION CAREGIVER) Daily Summary of Progress (COMPANION CAREGIVER): progress toward functional goals as expected (09/12/19 1040 : Luz Marina Kelly MS CCC-COMPANION CAREGIVER) Plan for Continued Treatment (COMPANION CAREGIVER): Continue to address dysphagia during treatment. Pt able to teach back compensations for small single sips & no straws w/ min cues. No overt s/s w/ thins or solid trials w/ compensations. Baseline coughing after breathing treatement per pt. Pt reports difficulty w/ non- cohesive solids prior to admit-educated on ways to avoid/modify non-cohesives. Will provide handout during next treatement session. (09/12/19 1040 : Luz Marina Kelly, MS [facility]-COMPANION CAREGIVER) Anticipated Dischage Disposition: unknown, anticipate therapy at next level of care (09/12/19 1040 : Luz Marina Kelly, MS [facility]-COMPANION CAREGIVER) COMPANION CAREGIVER GOALS Row Name 09/12/19 1040 Oral Nutrition/Hydration Goal 1 (COMPANION CAREGIVER) Oral Nutrition/Hydration Goal 1, COMPANION CAREGIVER LTG: Pt will tolerate regular diet, thin liquids w/ no overt s/sxs aspiration/distress w/ 100% acc and no cues -RD Time Frame (Oral Nutrition/Hydration Goal 1, COMPANION CAREGIVER) by discharge -RD Barriers (Oral Nutrition/Hydration Goal 1, COMPANION CAREGIVER) No immediate s/s of aspiration w/ thin or solid trials. Educated on trialing meds in pureed instead of thins to decrease aspiration risk. -RD Progress/Outcomes (Oral Nutrition/Hydration Goal 1, COMPANION CAREGIVER) continuing progress toward goal -RD Oral Nutrition/Hydration Goal 2 (COMPANION CAREGIVER) Oral Nutrition/Hydration Goal 2, COMPANION CAREGIVER Pt will tolerate regular solids & thin liquids via small single cup sips w/ no overt s/sxs aspiration/distress w/ 100% acc and no cues -RD Time Frame (Oral Nutrition/Hydration Goal 2, COMPANION CAREGIVER) short term goal (STG);by discharge -RD Barriers (Oral Nutrition/Hydration Goal 2, COMPANION CAREGIVER) Tolerating diet w/o s/s of aspiration. CXR improving per chart. -RD Progress/Outcomes (Oral Nutrition/Hydration Goal 2, COMPANION CAREGIVER) continuing progress toward goal -RD Pharyngeal Strengthening Exercise Goal 1 (COMPANION CAREGIVER) Activity (Pharyngeal Strengthening Goal 1, COMPANION CAREGIVER) increase superior movement of the hyolaryngeal complex;increase anterior movement of the hyolaryngeal complex;increase closure at entrance to airway/closure of airway at glottis;increase squeeze/positive pressure generation;increase tongue base retraction -RD Increase Superior Movement of the Hyolaryngeal Complex effortful pitch glide (falsetto + pharyngealsqueeze);Darryn -RD Increase Anterior Movement of the Hyolaryngeal Complex chin tuck against resistance (CTAR) -RD Increase Closure at Entrance to Airway/Closure of Airway at Glottis super- supraglottic swallow -RD Increase Squeeze/Positive Pressure Generation hard effortful swallow -RD Increase Tongue Base Retraction adan -RD Lenore/Accuracy (Pharyngeal Strengthening Goal 1, COMPANION CAREGIVER) with minimal cues (75-90% accuracy) -RD Time Frame (Pharyngeal Strengthening Goal 1, COMPANION CAREGIVER) short term goal (STG);by discharge -RD Barriers (Pharyngeal Strengthening Goal 1, COMPANION CAREGIVER) Reviewed and completed exercises. Left handout in pt's room -RD Progress/Outcomes (Pharyngeal Strengthening Goal 1, COMPANION CAREGIVER) continuing progress toward goal -RD Swallow Management Recall Goal 1 (COMPANION CAREGIVER) Activity (Swallow Management Recall Goal 1, COMPANION CAREGIVER) recall of;safe diet/liquid level;safe diet level/texture;compensatory swallow strategies/techniques -RD Lenore/Accuracy (Swallow Management Recall Goal 1, COMPANION CAREGIVER) with minimal cues (75-90% accuracy) -RD Time Frame (Swallow Management Recall Goal 1, COMPANION CAREGIVER) short term goal (STG);by discharge -RD Progress/Outcomes (Swallow Management Recall Goal 1, COMPANION CAREGIVER) continuing progress toward goal -RD Swallow Compensatory Strategies Goal 1 (COMPANION CAREGIVER) Activity (Swallow Compensatory Strategies/Techniques Goal 1, COMPANION CAREGIVER) small cup sips;other (see comments);during p.o. trials;during meal intake no straws -RD Lenore/Accuracy (Swallow Compensatory Strategies/Techniques Goal 1, COMPANION CAREGIVER) independently (over 90% accuracy) -RD Time Frame (Swallow Compensatory Strategies/Techniques Goal 1, COMPANION CAREGIVER) short term goal (STG);by discharge -RD Barriers (Swallow Compensatory Strategies/Techniques Goal 1, COMPANION CAREGIVER) pt able to teach back compensations and demonstrate w/ min cues -RD Progress/Outcomes (Swallow Compensatory Strategies/Techniques Goal 1, COMPANION CAREGIVER) continuing progress toward goal -RD User Patrick (r) = Recorded By, (t) = Taken By, (c) = Cosigned By Initials Name Provider Type Luz Marina Acosta MS [facility]-COMPANION CAREGIVER Speech and Language Pathologist EDUCATION The patient has been educated in the following areas: Dysphagia (Swallowing Impairment) Oral Care/Hydration Modified Diet Instruction. COMPANION CAREGIVER Recommendation and Plan Daily Summary of Progress (COMPANION CAREGIVER): progress toward functional goals as expected Plan for Continued Treatment (COMPANION CAREGIVER): Continue to address dysphagia during treatment. Pt able to teach back compensations for small single sips & no straws w/ min cues. No overt s/s w/ thins or solid trials w/ compensations. Baseline coughing after breathing treatement per pt. Pt reports difficulty w/ non- cohesive solids prior to admit-educated on ways to avoid/modify non-cohesives. Will provide handout during next treatement session. Anticipated Dischage Disposition: unknown, anticipate therapy at next level of care Time Calculation: Time Calculation- COMPANION CAREGIVER Row Name 09/12/19 1140 Time Calculation- COMPANION CAREGIVER COMPANION CAREGIVER Start Time 1040 -RD COMPANION CAREGIVER Received On 09/12/19 -RD User Patrick (r) = Recorded By, (t) = Taken By, (c) = Cosigned By Initials Name Provider Type Luz Marina Acosta MS CCC-COMPANION CAREGIVER Speech and Language Pathologist Therapy Charges for Today Code Description Service Date Service Provider Modifiers Qty [id number] HC ST TREATMENT SWALLOW 3 09/12/2019 Luz Marina Kelly MS CCC-COMPANION CAREGIVER GN 1 Luz Marina Kelly MS CCC-COMPANION CAREGIVER 09/12/2019 * Patient Care Conference - Meenakshi Menjivar PT - 09/12/2019 10:11 AM EST ICU ROUNDS: Cont PT/OT POC. * Therapy Evaluation - Leydi Sher OT - 09/11/2019 1:45 PM EST Acute Care - Occupational Therapy Initial Evaluation [facility] Patient Name: Nam Mayberry : 1950 Today's Date: 09/11/2019 Onset of Illness/Injury or Date of Surgery: 09/07/19 Date of Referral to OT: 09/09/19 Referring Physician: Dr. Galvan Admit Date: 09/07/2019 ICD-10-CM ICD-9-CM 1. Impaired mobility and ADLs Z74.09 799.89 Patient Active Problem List Diagnosis ??? Edema, peripheral ??? Anxiety, generalized ??? Dyslipidemia on statin ??? Essential hypertension ??? Laryngeal spasm ??? Vertigo ??? T2DM ??? H/O Asthma ??? Perennial rhinitis ??? GERD ??? Jimenez esophagus ??? DELL ??? Obesity hypoventilation syndrome ??? B12 deficiency ? ? Super obesity (BMI > 50) ??? DELL on CPAP ??? Chronic anticoagulation on Xarelto ??? Hx of Henoch-Schonlein purpura diagnosed 2005 with frequent steroid use for vasculitis (last course 08/17/2019) ??? Hypothyroidism ??? Chronic steroid use ??? Recent diagnosis of atrial fibrillation and placed on Xarelto ??? Morbid obesity with BMI of 50.0-59.9, adult ??? 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 HFrEF ??? History of asthma but no obstruction on PFTs. Questionable acute exacerbation this admission ??? Mild LLL CAP. MRSA PCR positive on nasal swab and respiratory panel positive for parainfluenza virus ??? E. coli UTI 09/04/2019 Past 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: Diagnosis Date ??? Anxiety [...] ??? CATARACT EXTRACTION Left 2018 ??? HYSTERECTOMY 1990 ??? OOPHORECTOMY Bilateral 1989 OT ASSESSMENT FLOWSHEET (last 12 hours) Occupational Therapy Evaluation Row Name 09/11/19 1345 OT Evaluation Time/Intention Subjective Information no complaints -JR Document Type evaluation -JR Mode of Treatment occupational therapy -JR Patient Effort excellent -JR Symptoms Noted During/After Treatment shortness of breath -JR General Information Patient Profile Reviewed? yes -JR Onset of Illness/Injury or Date of Surgery 09/07/19 -JR Referring Physician Dr. Galvan -JR Prior Level of Function independent:;gait;transfer;bed mobility;ADL's;dependent:;home management Ptreports requiring increased time with ADL's prior -JR Equipment Currently Used at Home cane, straight;shower chair -JR Pertinent History of Current Functional Problem Pt admitted from OSH with AMS. Pt found to have acute respiratory failure, failed bipap and was intubated. Pt with h/o HSP with recuurent vasculitis. -JR Existing Precautions/Restrictions fall;oxygen therapy device and L/min contact precautions -JR Risks Reviewed patient and family:;increased discomfort -JR Benefits Reviewed patient and family:;improve function;increase independence -JR Barriers to Rehab medically complex;previous functional deficit -JR Relationship/Environment Primary Source of Support/Comfort child(nilay) -JR Lives With child(nilay), adult;grandchild(nilay) -JR Resource/Environmental Concerns Current Living Arrangements home/apartment/condo -JR Home Main Entrance Number of Stairs, Main Entrance one -JR Cognitive Assessment/Interventions Additional Documentation Cognitive Assessment/Intervention (Group) -JR Cognitive Assessment/Intervention- PT/OT Affect/Mental Status (Cognitive) WFL -JR Orientation Status (Cognition) oriented x 4 -JR Follows Commands (Cognition) WFL -JR Safety Deficit (Cognitive) mild deficit;awareness of need for assistance;insight into deficits/selfawareness -JR Bed Mobility Assessment/Treatment Comment (Bed Mobility) Defer up in chair -JR Functional Mobility Functional Mobility- Ind. Level contact guard assist;verbal cues required -JR Functional Mobility- Device rolling walker - Functional Mobility-Distance (Feet) -- 2 laps in room -JR Functional Mobility- Safety Issues supplemental O2 -JR Functional Mobility- Comment Pt SOA with mobility, required sitting rest period. -JR Sit-Stand Transfer Sit-Stand Lenore (Transfers) minimum assist (75% patient effort);verbal cues -JR Assistive Device (Sit-Stand Transfers) walker, front-wheeled - ADL Assessment/Intervention BADL Assessment/Intervention toileting -JR Toileting Assessment/Training Lenore Level (Toileting) perform perineal hygiene;dependent (less than 25% patient effort) -JR Toileting Position supported standing -JR General ROM GENERAL ROM COMMENTS R shoulder flexion limited to approx 100 degrees, remainder WFL -JR MMT (Manual Muscle Testing) General MMT Comments B UE functionally 4-/5 -JR Motor Assessment/Interventions Additional Documentation Balance (Group) -JR Static Sitting Balance Level of Lenore (Unsupported Sitting, Static Balance) independent -JR Static Standing Balance Level of Lenore (Supported Standing, Static Balance) contact guard assist -JR Assistive Device Utilized (Supported Standing, Static Balance) walker, rolling -JR Positioning and Restraints Pre-Treatment Position sitting in chair/recliner -JR Post Treatment Position chair -JR In Chair notified nsg;sitting;call light within reach;encouraged to call for assist;with family/caregiver;on mechanical lift sling -JR Pain Scale: FACES Pre/Post-Treatment Pain: FACES Scale, Pretreatment 2-->hurts little bit -JR Pain: FACES Scale, Post-Treatment 2-->hurts little bit -JR Wound 09/07/19 0200 lower abdomen MASD (Moisutre associated skin damage) Wound - Properties Group Date first assessed: 09/07/19 -WG Time first assessed: 199 -WG Present onHospital Admission: Y -WG Orientation: lower -WG Location: abdomen -WG Primary Wound Type: MASD -WG Plan of Care Review Plan of Care Reviewed With patient -JR Clinical Impression (OT) Date of Referral to OT 09/09/19 -JR OT Diagnosis Decreased independence with ADL's and mobility -JR Patient/Family Goals Statement (OT Eval) Return home -JR Criteria for Skilled Therapeutic Interventions Met (OT Eval) yes;treatment indicated -JR Rehab Potential (OT Eval) good, to achieve stated therapy goals -JR Therapy Frequency (OT Eval) daily -JR Care Plan Review (OT) risks/benefits reviewed;patient/other agree to care plan -JR Anticipated Discharge Disposition (OT) nursing home facility -JR Vital Signs Pre Systolic BP Rehab 147 -JR Pre Treatment Diastolic BP 83 -JR Post Systolic BP Rehab 159 -JR Post Treatment Diastolic BP 93 -JR Pretreatment Heart Rate (beats/min) 97 -JR Posttreatment Heart Rate (beats/min) 95 -JR Pre SpO2 (%) 91 -JR O2 Delivery Pre Treatment supplemental O2 3L -JR Post SpO2 (%) 90 -JR O2 Delivery Post Treatment supplemental O2 -JR Pre Patient Position Sitting -JR Intra Patient Position Standing -JR Post Patient Position Sitting -JR Planned OT Interventions Planned Therapy Interventions (OT Eval) activity tolerance training;adaptive equipment training;BADL retraining;occupation/activity based interventions;passive ROM/stretching;ROM/therapeutic exercise;strengthening exercise;transfer/mobility retraining -JR OT Goals Bed Mobility Goal Selection (OT) bed mobility, OT goal 1 -JR Transfer Goal Selection (OT) transfer, OT goal 1 -JR Dressing Goal Selection (OT) dressing, OT goal 1 -JR Activity Tolerance Goal Selection (OT) activity tolerance, OT goal 1 -JR Additional Documentation Activity Tolerance Goal Selection (OT) (Row) -JR Bed Mobility Goal 1 (OT) Activity/Assistive Device (Bed Mobility Goal 1, OT) sit to supine/supine to sit -JR Lenore Level/Cues Needed (Bed Mobility Goal 1, OT) minimum assist (75% or more patient effort);verbal cues required -JR Time Frame (Bed Mobility Goal 1, OT) shelter goal (LTG);1 week -JR Progress/Outcomes (Bed Mobility Goal 1, OT) goal ongoing -JR Transfer Goal 1 (OT) Activity/Assistive Device (Transfer Goal 1, OT) [id number] -JR Lenore Level/Cues Needed (Transfer Goal 1, OT) contact guard assist;verbal cues required -JR Time Frame (Transfer Goal 1, OT) shelter goal (LTG);1 week -JR Progress/Outcome (Transfer Goal 1, OT) goal ongoing -JR Dressing Goal 1 (OT) Activity/Assistive Device (Dressing Goal 1, OT) lower body dressing with AE PRN -JR Lenore/Cues Needed (Dressing Goal 1, OT) minimum assist (75% or more patient effort);verbal cues required -JR Time Frame (Dressing Goal 1, OT) terminal carman goal (LTG);1 week -JR Progress/Outcome (Dressing Goal 1, OT) goal ongoing -JR Activity Tolerance Goal 1 (OT) Activity Tolerance Goal 1 (OT) PT to participate with 10 minute activity with 1 rest period with )2sats > 88% on O2. -JR Activity Level (Endurance Goal 1, OT) 10 min activity;O2 sat >/ equal to 88% -JR Time Frame (Activity Tolerance Goal 1, OT) terminal carman goal (LTG);1 week -JR Progress/Outcome (Activity Tolerance Goal 1, OT) goal ongoing -JR Patient Education Goal (OT) Activity (Patient Education Goal, OT) Pt to verbalize understanding of WS/EC education to support ADL independence -JR Lenore/Cues/Accuracy (Memory Goal 2, OT) verbalizes understanding -JR Time Frame (Patient Education Goal, OT) terminal carman goal (LTG);1 week -JR Progress/Outcome (Patient Education Goal, OT) goal ongoing -JR Living Environment Home Accessibility stairs within home -JR User Patrick (r) = Recorded By, (t) = Taken By, (c) = Cosigned By Initials Name Effective Dates Leydi Ansari OT 02/26/15 - WG Priscila Zeng RN 02/21/16 - OT Recommendation and Plan Outcome Summary/Treatment Plan (OT) Anticipated Discharge Disposition (OT): nursing home facility Planned Therapy Interventions (OT Eval): activity tolerance training, adaptive equipment training, BADL retraining, occupation/activity based interventions, passive ROM/stretching, ROM/therapeutic exercise, strengthening exercise, transfer/mobility retraining Therapy Frequency (OT Eval): daily Plan of Care Review Plan of Care Reviewed With: patient Plan of Care Reviewed With: patient Outcome Summary: OT initial eval and expanded chart review completed. Pt presents with multiple comorbidities and decreased independence with ADL's and mobility. Pt demonstrates excellent motvation for therapy and will be a great rehab candidate.Recommend SNF at d/c. Outcome Measures Row Name 09/11/19 1345 How much help from another is currently needed... Putting on and taking off regular lower body clothing? 1 -JR Bathing (including washing, rinsing, and drying) 2 -JR Toileting (which includes using toilet bed lay or urinal) 1 -JR Putting on and taking off regular upper body clothing 2 -JR Taking care of personal grooming (such as brushing teeth) 3 -JR Eating meals 3 -JR AM-PAC 6 Clicks Score (OT) 12 -JR Functional Assessment Outcome Measure Options AM-PAC 6 Clicks Daily Activity (OT) -JR User Patrick (r) = Recorded By, (t) = Taken By, (c) = Cosigned By Initials Name Provider Type Leydi Ansari, OT Occupational Therapist Time Calculation: Time Calculation- OT Row Name 09/11/19 1345 Time Calculation- OT OT Start Time 1345 -JR OT Received On 09/11/19 -JR OT Goal Re-Cert Due Date 09/21/19 - User Patrick (r) = Recorded By, (t) = Taken By, (c) = Cosigned By Initials Name Provider Type JR Leydi Sher OT Occupational Therapist Therapy Charges for Today Code Description Service Date Service Provider Modifiers Qty 08011950250 HC OT EVAL MOD COMPLEXITY 4 09/11/2019 Leydi Sher OT GO 1 Leydi Garza. GO Sher 09/11/2019 * Therapy Treatment Note - LeesadaysiVivian, PT - 09/11/2019 1:30 PM EST Patient Name: Nam Mayberry : 1950 Today's Date: 09/11/2019 Admit Date: 09/07/2019 Visit Dx: ICD-10-CM ICD-9-CM 1. Impaired mobility and ADLs Z74.09 799.89 Patient Active Problem List Diagnosis ??? Edema, peripheral ??? Anxiety, generalized ??? Dyslipidemia on statin ??? Essential hypertension ??? Laryngeal spasm ??? Vertigo ??? T2DM ??? H/O Asthma ??? Perennial rhinitis ??? GERD ??? Jimenez esophagus ??? DELL ??? Obesity hypoventilation syndrome ??? B12 deficiency ? ? Super obesity (BMI > 50) ??? DELL on CPAP ??? Chronic anticoagulation on Xarelto ??? Hx of Henoch-Schonlein purpura diagnosed 2005 with frequent steroid use for vasculitis (last course 08/17/2019) ??? Hypothyroidism ??? Chronic steroid use ??? Recent diagnosis of atrial fibrillation and placed on Xarelto ??? Morbid obesity with BMI of 50.0-59.9, adult ??? Acute on chronic mixed hypoxemic/hypercarbic respiratory failure acquiring ventilatory support 09/04/2019 ([facility]) ??? HFrEF ??? History of asthma but no obstruction on PFTs. Questionable acute exacerbation this admission ??? Mild LLL CAP. MRSA PCR positive on nasal swab and respiratory panel positive for parainfluenza virus ??? E. coli UTI 09/04/2019 Past 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: Diagnosis Date ??? Anxiety ??? Arthritis ??? Atrial fibrillation ([facility]) ??? Cataract ??? Cellulitis BLE ??? COPD (chronic obstructive pulmonary disease) (CMS/HCC) ??? Depression ??? Diabetes mellitus (CMS/HCC) ??? Disease of thyroid gland ??? GERD (gastroesophageal reflux disease) ??? HSP (Henoch Schonlein purpura) (CMS/HCC) ??? Hyperlipidemia ??? Hypertension ??? Sleep apnea Home Cpap use ??? Vasculitis (CMS/HCC) Past Surgical History: Procedure Laterality Date ??? CATARACT EXTRACTION Left 2019 ??? HYSTERECTOMY 1989 ??? OOPHORECTOMY Bilateral 1989 General Information Row Name 09/11/19 1536 PT Evaluation Time/Intention Document Type therapy note (daily note) -DULCE Mode of Treatment physical therapy -DULCE Row Name 09/11/19 1536 General Information Patient Profile Reviewed? yes -DULCE Prior Level of Function independent:;gait;transfer;bed mobility;ADL's -DULCE Existing Precautions/Restrictions fall;oxygen therapy device and L/min -DULCE Barriers to Rehab medically complex;previous functional deficit -DULCE Row Name 09/11/19 153 Cognitive Assessment/Intervention- PT/OT Orientation Status (Cognition) oriented x 4 -DULCE Row Name 09/11/19 1536 Safety Issues, Functional Mobility Safety Issues Affecting Function (Mobility) safety precautions follow- through/compliance;safety precaution awareness -DULCE Impairments Affecting Function (Mobility) balance;endurance/activity tolerance;shortness of breath;strength -DULCE User Patrick (r) = Recorded By, (t) = Taken By, (c) = Cosigned By Initials Name Provider Type DULCE Vivian Alegria, PT Physical Therapist Mobility Row Name 09/11/19 1537 Bed Mobility Assessment/Treatment Comment (Bed Mobility) patient is OOB and returns to the chair -DULCE Row Name 09/11/19 1537 Bed-Chair Transfer Bed-Chair Lenore (Transfers) minimum assist (75% patient effort) -DULCE Assistive Device (Bed-Chair Transfers) walker, front-wheeled -DULCE Row Name 09/11/19 1537 Sit-Stand Transfer Sit-Stand Lenore (Transfers) minimum assist (75% patient effort) -DULCE Assistive Device (Sit-Stand Transfers) walker, front-wheeled -DULCE Row Name 09/11/19 1537 Gait/Stairs Assessment/Training Gait/Stairs Assessment/Training gait/ambulation independence -DULCE Lenore Level (Gait) contact guard -DULCE Assistive Device (Gait) walker, front-wheeled -DULCE Distance in Feet (Gait) 40 x2 -DULCE Pattern (Gait) step-through -DULCE Deviations/Abnormal Patterns (Gait) stride length decreased -DULCE Comment (Gait/Stairs) patient ambulates in the room due to contact precautions. she is able to ambulate 40 ft x2 with one sitting rest of 2 min -DULCE User Patrick (r) = Recorded By, (t) = Taken By, (c) = Cosigned By Initials Name Provider Type Vivian Hendrickson PT Physical Therapist Obj/Interventions Row Name 09/11/19 1540 Therapeutic Exercise Lower Extremity Range of Motion (Therapeutic Exercise) hip flexion/extension, bilateral;knee flexion/extension, bilateral;ankle dorsiflexion/plantar flexion, bilateral -DULCE Exercise Type (Therapeutic Exercise) AROM (active range of motion) -DULCE Position (Therapeutic Exercise) seated -DULCE Sets/Reps (Therapeutic Exercise) 09/16 -DULCE Expected Outcome (Therapeutic Exercise) facilitate normal movement patterns;improve functional stability;improve functional tolerance, self-care activity -DULCE Comment (Therapeutic Exercise) patient is performing all exercises several times a day with family assist -[facility] Name 09/11/19 1540 Static Sitting Balance Level of Lenore (Unsupported Sitting, Static Balance) independent -DULCE Sitting Position (Unsupported Sitting, Static Balance) sitting in chair -[facility] Name 09/11/19 1540 Dynamic Sitting Balance Level of Lenore, Reaches Outside Midline (Sitting, Dynamic Balance) independent -DULCE Sitting Position, Reaches Outside Midline (Sitting, Dynamic Balance) sitting in chair -[facility] Name 09/11/19 1540 Static Standing Balance Level of Lenore (Supported Standing, Static Balance) contact guard assist -DULCE Assistive Device Utilized (Supported Standing, Static Balance) walker, rolling -[facility] Name 09/11/19 1540 Dynamic Standing Balance Level of Lenore, Reaches Outside Midline (Standing, Dynamic Balance) minimal assist, 75% patient effort -DULCE Assistive Device Utilized (Supported Standing, Dynamic Balance) walker, rolling -DULCE User Patrick (r) = Recorded By, (t) = Taken By, (c) = Cosigned By Initials Name Provider Type Vivian Hendrickson PT Physical Therapist Goals/Plan No documentation. Clinical Impression Row Name 09/11/19 3658 Pain Scale: Numbers Pre/Post-Treatment Pain Scale: Numbers, Pretreatment 0/10 - no pain -DULCE Pain Scale: Numbers, Post-Treatment 0/10 - no pain -DULCE Row Name 09/11/19 1548 Plan of Care Review Plan of Care Reviewed With patient -DULCE Progress improving -DULCE Outcome Summary patient is able to increase ambulation to 40 ft x2 she shows improved strength requiring less assist to transfer and ambulate, continues to progress towards goals -DULCE Row Name 09/11/19 1548 Physical Therapy Clinical Impression Patient/Family Goals Statement (PT Clinical Impression) return to PLOF -DULCE Criteria for Skilled Interventions Met (PT Clinical Impression) yes;treatment indicated -DULCE Rehab Potential (PT Clinical Summary) good, to achieve stated therapy goals -DULCE Row Name 09/11/19 1548 Positioning and Restraints Pre-Treatment Position sitting in chair/recliner -DULCE Post Treatment Position chair -DULCE In Chair notified nsg;reclined;sitting;call light within reach;with family/caregiver -DULCE User Patrick (r) = Recorded By, (t) = Taken By, (c) = Cosigned By Initials Name Provider Type Vivian Hendrickson, PT Physical Therapist Outcome Measures Row Name 09/11/19 1552 How much help from another person do you currently need... Turning from your back to your side while in flat bed without using bedrails? 3 -DULCE Moving from lying on back to sitting on the side of a flat bed without bedrails? 3 -DULCE Moving to and from a bed to a chair (including a wheelchair)? 3 -DULCE Standing up from a chair using your arms (e.g., wheelchair, bedside chair)? 3 -DULCE Climbing 3-5 steps with a railing? 1 -DULCE To walk in hospital room? 3 -DULCE AM-PAC 6 Clicks Score (PT) 16 -DULCE User Patrick (r) = Recorded By, (t) = Taken By, (c) = Cosigned By Initials Name Provider Type Vivian Hendrickson, PT Physical Therapist PT Recommendation and Plan Planned Therapy Interventions (PT Eval): balance training, bed mobility training, gait training, home exercise program, transfer training, strengthening Outcome Summary/Treatment Plan (PT) Anticipated Equipment Needs at Discharge (PT): front wheeled walker Anticipated Discharge Disposition (PT): nursing home facility Plan of Care Reviewed With: patient Progress: improving Outcome Summary: patient is able to increase ambulation to 40 ft x2 she shows improved strength requiring less assist to transfer and ambulate, continues to progress towards goals Time Calculation: PT Charges Row Name 09/11/19 1330 Time Calculation Start Time 1330 -DULCE PT Received On 09/11/19 -DULCE PT Goal Re-Cert Due Date 09/18/19 -DULCE Time Calculation- PT Total Timed Code Minutes- PT 23 minute(s) -DULCE Timed Charges 17581 - PT Therapeutic Activity Minutes 23 -DULCE User Patrick (r) = Recorded By, (t) = Taken By, (c) = Cosigned By Initials Name Provider Type Vivian Hendrickson, PT Physical Therapist Therapy Charges for Today Code Description Service Date Service Provider Modifiers Qty 80631084336 HC PT THERAPEUTIC ACT EA 15 MIN 09/11/2019 Vivian Alegria, PT GP 1 35268092476 HC PT THERAPEUTIC ACT EA 15 MIN 09/11/2019 Vivian Alegria PT GP 2 PT G-Codes Outcome Measure Options: AM-PAC 6 Clicks Daily Activity (OT) AM-PAC 6 Clicks Score (PT): 16 AM-PAC 6 Clicks Score (OT): 12 Vivian Alegria PT 09/11/2019 * Therapy Treatment Note - Meenakshi Menjivar, PT - 09/09/2019 1:10 PM EST Patient Name: Nam Mayberry : 1950 Today's Date: 09/09/2019 Admit Date: 09/07/2019 Visit Dx: No diagnosis found. Patient Active Problem List Diagnosis ??? Edema, peripheral ??? Anxiety, generalized ??? Dyslipidemia on statin ??? Essential hypertension ??? Laryngeal spasm ??? Vertigo ??? T2DM ??? H/O Asthma ??? Perennial rhinitis ??? GERD ??? Jimenez esophagus ??? DELL ??? Obesity hypoventilation syndrome ??? B12 deficiency ? ? Super obesity (BMI > 50) ??? DELL on CPAP ??? Chronic anticoagulation on Xarelto ??? Hx of Henoch-Schonlein purpura ??? Hypothyroidism ??? Chronic steroid use ??? Atrial fibrillation ??? Morbid obesity with BMI of 50.0-59.9, adult ??? Acute on chronic respiratory failure with hypoxia and hypercapnia (CMS/HCC) ??? HFrEF ??? Asthma with acute exacerbation ??? CAP (community acquired pneumonia) Past 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: Diagnosis Date ??? Anxiety [...] ??? HYSTERECTOMY 1989 ??? OOPHORECTOMY Bilateral 1989 General Information Row Name 09/09/19 1409 PT Evaluation Time/Intention Document Type therapy note (daily note) - Mode of Treatment physical therapy - Row Name 09/09/19 1409 General Information Existing Precautions/Restrictions fall;oxygen therapy device and L/min - Row Name 09/09/19 1409 Cognitive Assessment/Intervention- PT/OT Orientation Status (Cognition) oriented x 4 - User Patrick (r) = Recorded By, (t) = Taken By, (c) = Cosigned By Initials Name Provider Type LS Meenakshi Menjivar, PT Physical Therapist Mobility Row Name 09/09/19 1410 Transfer Assessment/Treatment Comment (Transfers) STS x2 from recliner; vc's for hand placement. - Row Name 09/09/19 1410 Sit-Stand Transfer Sit-Stand Lenore (Transfers) moderate assist (50% patient effort);2 person assist;verbal cues-LS Assistive Device (Sit-Stand Transfers) walker, front-wheeled -LS Row Name 09/09/19 1410 Gait/Stairs Assessment/Training Gait/Stairs Assessment/Training gait/ambulation independence -LS Lenore Level (Gait) minimum assist (75% patient effort);2 person assist;verbal cues -LS Assistive Device (Gait) walker, front-wheeled -LS Distance in Feet (Gait) 32 -LS Deviations/Abnormal Patterns (Gait) bilateral deviations;margaret decreased;stride length decreased -LS Bilateral Gait Deviations heel strike decreased;forward flexed posture -LS Comment (Gait/Stairs) VC for upright posture, increasing heel strike and foot clearance. 1 brief seated rest break after 16 ft; followed with recliner for safety. - User Patrick (r) = Recorded By, (t) = Taken By, (c) = Cosigned By Initials Name Provider Type Meenakshi Spring, PT Physical Therapist Obj/Interventions Row Name 09/09/19 1412 Therapeutic Exercise Upper Extremity Range of Motion (Therapeutic Exercise) elbow flexion/extension, bilateral;shoulder abduction/adduction, bilateral;shoulder flexion/extension, bilateral -LS Lower Extremity (Therapeutic Exercise) gluteal sets;quad sets, bilateral -LS Lower Extremity Range of Motion (Therapeutic Exercise) hip abduction/adduction, bilateral;hip internal/external rotation, bilateral -LS Exercise Type (Therapeutic Exercise) AROM (active range of motion) -LS Position (Therapeutic Exercise) seated -LS Sets/Reps (Therapeutic Exercise) 09/16; rest breaks between attempts - Row Name 09/09/19 1412 Static Sitting Balance Level of Lenore (Unsupported Sitting, Static Balance) contact guard assist - Sitting Position (Unsupported Sitting, Static Balance) sitting in chair - Row Name 09/09/19 1412 Static Standing Balance Level of Lenore (Supported Standing, Static Balance) minimal assist, 75% patient effort - Assistive Device Utilized (Supported Standing, Static Balance) walker, rolling - User Patrick (r) = Recorded By, (t) = Taken By, (c) = Cosigned By Initials Name Provider Type Meenakshi Spring, PT Physical Therapist Goals/Plan No documentation. Clinical Impression Row Name 09/09/19 1414 Pain Scale: FACES Pre/Post-Treatment Pain: FACES Scale, Pretreatment 0-->no hurt - Pain: FACES Scale, Post-Treatment 0-->no hurt - Row Name 09/09/19 1414 Plan of Care Review Plan of Care Reviewed With patient - Progress improving - Outcome Summary Pt demonstrated ability to progress forward ambulation distance to 32 total ft withminx2 A, RW, 1 seated rest break. Cont to be limited by generalized fatigue and c/o dizziness in upright; gave excellent effort throughout. - Row Name 09/09/19 1414 Vital Signs O2 Delivery Pre Treatment nasal cannula -LS O2 Delivery Intra Treatment nasal cannula -LS O2 Delivery Post Treatment nasal cannula -LS Pre Patient Position Sitting -LS Intra Patient Position Standing -LS Post Patient Position Sitting -LS Row Name 09/09/19 1414 Positioning and Restraints Pre-Treatment Position sitting in chair/recliner -LS Post Treatment Position chair -LS In Chair notified nsg;reclined;call light within reach;on mechanical lift sling;legs elevated;heelselevated;waffle cushion;with family/caregiver;RUE elevated;LUE elevated -LS User Patrick (r) = Recorded By, (t) = Taken By, (c) = Cosigned By Initials Name Provider Type Meenakshi Spring, PT Physical Therapist Outcome Measures Row Name 09/09/19 1518 How much help from another person do you currently need... Turning from your back to your side while in flat bed without using bedrails? 2 -LS Moving from lying on back to sitting on the side of a flat bed without bedrails? 2 -LS Moving to and from a bed to a chair (including a wheelchair)? 2 -LS Standing up from a chair using your arms (e.g., wheelchair, bedside chair)? 2 -LS Climbing 3-5 steps with a railing? 1 -LS To walk in hospital room? 3 -LS AM-PAC 6 Clicks Score (PT) 12 -LS User Patrick (r) = Recorded By, (t) = Taken By, (c) = Cosigned By Initials Name Provider Type Meenakshi Spring, PT Physical Therapist PT Recommendation and Plan Planned Therapy Interventions (PT Eval): balance training, bed mobility training, gait training, home exercise program, strengthening, transfer training, patient/family education Outcome Summary/Treatment Plan (PT) Anticipated Discharge Disposition (PT): nursing home facility Plan of Care Reviewed With: patient Progress: improving Outcome Summary: Pt demonstrated ability to progress forward ambulation distance to 32 total ft with minx2 A, RW, 1 seated rest break. Cont to be limited by generalized fatigue and c/o dizziness in upright; gave excellent effort throughout. Time Calculation: PT Charges Row Name 09/09/19 1519 Time Calculation Start Time 1310 - PT Received On 09/09/19 - Time Calculation- PT Total Timed Code Minutes- PT 40 minute(s) -LS Timed Charges 98399 - PT Therapeutic Exercise Minutes 15 -LS 39720 - Gait Training Minutes 15 -LS 38169 - PT Therapeutic Activity Minutes 10 -LS User Patrick (r) = Recorded By, (t) = Taken By, (c) = Cosigned By Initials Name Provider Type LS Meenakshi Menjivar, PT Physical Therapist Therapy Charges for Today Code Description Service Date Service Provider Modifiers Qty 42867314506 HC PT EVAL MOD COMPLEXITY 3 09/08/2019 Meenakshi Menjivar, PT GP 1 56652721395 HC PT THERAPEUTIC ACT EA 15 MIN 09/08/2019 Meenakshi Menjivar, PT GP 1 05218244102 HC PT THER SUPP EA 15 MIN 09/08/2019 Meenakshi Menjivar, PT GP 2 29075896088 HC PT THER PROC EA 15 MIN 09/09/2019 Meenakshi Menjivar, PT GP 1 48233163372 HC GAIT TRAINING EA 15 MIN 09/09/2019 Meenakshi Menjivar, PT GP 1 23150742594 HC PT THERAPEUTIC ACT EA 15 MIN 09/09/2019 Meenakshi Menjivar, PT GP 1 10615253493 HC PT THER PROC EA 15 MIN 09/09/2019 Meenakshi Menjivar, PT GP 1 93696052485 HC GAIT TRAINING EA 15 MIN 09/09/2019 Meenakshi Menjivar, PT GP 1 13790029470 HC PT THERAPEUTIC ACT EA 15 MIN 09/09/2019 Meenakshi Menjivar, PT GP 1 PT G-Codes Outcome Measure Options: AM-PAC 6 Clicks Basic Mobility (PT) AM-PAC 6 Clicks Score (PT): 12 Meenakshi Menjivar PT 09/09/2019 * MBS/VFSS/FEES - Edvin Castellanos, [facility]-COMPANION CAREGIVER - 09/08/2019 4:28 PM EST Acute Care - Speech Language Pathology Swallow Initial Evaluation Stas Fiberoptic Endoscopic Evaluation of Swallowing (FEES) Patient Name: Nam Mayberry : 1950 Today's Date: 09/08/2019 Admit Date: 09/07/2019 Visit Dx: No diagnosis found. Patient Active Problem List Diagnosis ??? Edema, peripheral ??? Anxiety, generalized ??? Dyslipidemia on statin ??? Essential hypertension ??? Laryngeal spasm ??? Vertigo ??? T2DM ??? H/O Asthma ??? Perennial rhinitis ??? GERD ??? Jimenez esophagus ??? DELL ??? Obesity hypoventilation syndrome ??? B12 deficiency ? ? Super obesity (BMI > 50) ??? DELL on CPAP ??? Chronic anticoagulation on Xarelto ??? Hx of Henoch-Schonlein purpura ??? Hypothyroidism ??? Chronic steroid use ??? Atrial fibrillation ??? Morbid obesity with BMI of 50.0-59.9, adult ??? Acute on chronic respiratory failure with hypoxia and hypercapnia (CMS/HCC) ??? HFrEF ??? Asthma with acute exacerbation ??? CAP (community acquired pneumonia) Past 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: Diagnosis Date ??? Anxiety [...] Procedure Laterality Date ??? CATARACT EXTRACTION Left 2019 ??? HYSTERECTOMY 1989 ??? OOPHORECTOMY Bilateral 1989 SWALLOW EVALUATION (last 72 hours) COMPANION CAREGIVER Adult Swallow Evaluation Row Name 09/08/19 1500 09/08/19 1115 Rehab Evaluation Document Type evaluation -MP evaluation -MP Subjective Information no complaints -MP no complaints -MP Patient Observations alert;cooperative -MP alert;cooperative -MP Patient/Family Observations Family present -MP Family present -MP Patient Effort good -MP good -MP General Information Patient Profile Reviewed -- yes -MP Pertinent History Of Current Problem See AM eval -MP Transfer from [facility]/ [id number] respiratory failure. Intubated 09/04-09/07/19 @ 1218. Hx HTN, DM2, GERD, Afib. Failed RN post-extubation screen. -MP Current Method of Nutrition -- NPO -MP Precautions/Limitations, Vision -- WFL;for purposes of eval -MP Precautions/Limitations, Hearing -- WFL;for purposes of eval -MP Prior Level of Function-Communication -- WFL -MP Prior Level of Function-Swallowing -- esophageal concerns;other (see comments) hx jimenez's esophagus -MP Plans/Goals Discussed with -- patient;family;agreed upon -MP Barriers to Rehab -- none identified -MP Patient's Goals for Discharge -- return to PO diet -MP Family Goals for Discharge -- patient able to return to PO diet -MP Pain Assessment Additional Documentation Pain Scale: FACES Pre/Post-Treatment (Group) -MP Pain Scale: FACES Pre/Post-Treatment (Group) -MP Pain Scale: FACES Pre/Post-Treatment Pain: FACES Scale, Pretreatment 0-->no hurt -MP 0-->no hurt -MP Pain: FACES Scale, Post-Treatment 0-->no hurt -MP 0-->no hurt -MP Oral Motor and Function Dentition Assessment -- natural, present and adequate -MP Secretion Management -- WNL/WFL -MP Mucosal Quality -- moist, healthy -MP Oral Musculature and Cranial Nerve Assessment Oral Motor General Assessment -- WFL -MP General Eating/Swallowing Observations Respiratory Support Currently in Use -- other (see comments) HFNC -MP Eating/Swallowing Skills -- fed by COMPANION CAREGIVER -MP Positioning During Eating -- upright in bed -MP Utensils Used -- spoon;cup;straw -MP Consistencies Trialed -- thin liquids;pureed -MP Clinical Swallow Eval Pharyngeal Phase -- suspected pharyngeal impairment -MP Clinical Swallow Evaluation Summary -- Clinical swallow evaluation completed. Pt given trials of ice chipx1, thin via tsp/cup/straw, & puree. DNT solid 2' aspiration risk. Multiple swallows across consistencies. Discussed w/ pt/family completing FEES to further assess swallow function & r/oaspiration prior to initiating PO diet. All in agreement. Will proceed w/ FEES this PM. -MP Pharyngeal Phase Concerns Pharyngeal Phase Concerns -- multiple swallows -MP Multiple Swallows -- thin;pudding -MP Fiberoptic Endoscopic Evaluation of Swallowing (FEES) Risks/Benefits Reviewed risks/benefits explained;patient;family;agreed to eval - MP -- Nasal Entry right: -MP -- Special Considerations Scope #[id number] -MP -- Anatomy and Physiology Anatomic Considerations edema;other (see comments) t/o hypopharynx -MP -- Velopharyngeal WFL -MP -- Base of Tongue symmetrical -MP -- Epiglottis WFL -MP -- Laryngeal Function Breathing symmetrical -MP -- Laryngeal Function Phonation symmetrical -MP -- Laryngeal Function to Breath Hold TVF/FVF/Arytenoid;sustained closure -MP -- Secretion Rating Scale (Olegario et al. 1996) 1- secretions present around the laryngeal vestibule -MP -- Secretion Description thin;clear -MP -- Ice Chips DNA -MP -- Spontaneous Swallow frequency adequate -MP -- Sensory sensed scope -MP -- Utensils Used Spoon;Cup;Straw -MP -- Consistencies Trialed thin liquids;pudding/puree;Regular textures -MP -- FEES Interpretation Oral Phase WFL -MP -- Initiation of Pharyngeal Swallow Initiation of Pharyngeal Swallow bolus in valleculae -MP -- Pharyngeal Phase impaired pharyngeal phase of swallowing -MP -- Penetration During the Swallow thin liquids;secondary to reduced vestibular closure;other (see comments) w/ large/consecutive straw sips -MP -- Rosenbek's Scale thin:;3-->Level 3 -MP -- Residue thin liquids;pudding/puree;regular Textures;diffuse within pharynx;secondary to reduced base of tongue retraction;secondary to reduced posterior pharyngeal wall stripping;secondary to reducedlaryngeal elevation;secondary to reduced hyolaryngeal excursion;other (see comments) very mild -MP -- Response to Residue cleared residue;with spontaneous subsequent swallow -MP -- Attempted Compensatory Maneuvers bolus size;bolus presentation style -MP -- Response to Attempted Compensatory Maneuvers prevented penetration -MP -- FEES Summary COMPANION CAREGIVER FEES evaluation completed. Pt presents w/ mild pharyngeal dysphagia. Penetration during the swallow w/ large and/or consecutive sips of thin liquid via straw 2' reduced vestibular closure. Unable to fully clear w/ cued cough. No penetration/aspiration w/ controlled sips via cup. Mild diffuse pharyngeal residue w/ all consistencies tested 2' generalized weakness. Mostly cleared w/spontaneous subsequent swallow. Recommend regular diet, thin liquids via small single cup sips. No straws. Meds whole or crushed in pudding/puree. Standard aspiration precautions. -MP -- Clinical Impression COMPANION CAREGIVER Swallowing Diagnosis mild;pharyngeal dysfunction -MP suspected pharyngeal dysfunction -MP Functional Impact risk of aspiration/pneumonia -MP risk of aspiration/pneumonia -MP Rehab Potential/Prognosis, Swallowing good, to achieve stated therapy goals -MP good, to achieve stated therapy goals -MP Swallow Criteria for Skilled Therapeutic Interventions Met demonstrates skilled criteria -MP demonstrates skilled criteria -MP Recommendations Therapy Frequency (Swallow) 3 days per week -MP -- Predicted Duration Therapy Intervention (Days) until discharge -MP -- COMPANION CAREGIVER Diet Recommendation regular textures;thin liquids -MP NPO;other (see comments) until FEES -MP Recommended Diagnostics -- FEES -MP Recommended Precautions and Strategies no straw;small bites of food and sips of liquid;upright posture during/after eating -MP other (see comments) oral care BID/PRN -MP COMPANION CAREGIVER Rec. for Method of Medication Administration meds whole;meds crushed;with pudding or applesauce-MP meds via alternate route until FEES -MP Monitor for Signs of Aspiration yes;notify COMPANION CAREGIVER if any concerns -MP -- Anticipated Dischage Disposition unknown;anticipate therapy at next level of care -MP unknown;anticipate therapy at next level of care -MP User Patrick (r) = Recorded By, (t) = Taken By, (c) = Cosigned By Initials Name Effective Dates Edvin Wyman MS [facility]-COMPANION CAREGIVER 02/23/19 - EDUCATION The patient has been educated in the following areas: Dysphagia (Swallowing Impairment) Modified Diet Instruction. COMPANION CAREGIVER Recommendation and Plan COMPANION CAREGIVER Swallowing Diagnosis: mild, pharyngeal dysfunction COMPANION CAREGIVER Diet Recommendation: regular textures, thin liquids Recommended Precautions and Strategies: no straw, small bites of food and sips of liquid, upright posture during/after eating COMPANION CAREGIVER Rec. for Method of Medication Administration: meds whole, meds crushed, with pudding or applesauce Monitor for Signs of Aspiration: yes, notify COMPANION CAREGIVER if any concerns Recommended Diagnostics: FEES Swallow Criteria for Skilled Therapeutic Interventions Met: demonstrates skilled criteria Anticipated Dischage Disposition: unknown, anticipate therapy at next level of care Rehab Potential/Prognosis, Swallowing: good, to achieve stated therapy goals Therapy Frequency (Swallow): 3 days per week Predicted Duration Therapy Intervention (Days): until discharge Plan of Care Reviewed With: patient, family COMPANION CAREGIVER GOALS Row Name 09/08/19 1500 Oral Nutrition/Hydration Goal 1 (COMPANION CAREGIVER) Oral Nutrition/Hydration Goal 1, COMPANION CAREGIVER LTG: Pt will tolerate regular diet, thin liquids w/ no overt s/sxs aspiration/distress w/ 100% acc and no cues -MP Time Frame (Oral Nutrition/Hydration Goal 1, COMPANION CAREGIVER) by discharge -MP Oral Nutrition/Hydration Goal 2 (COMPANION CAREGIVER) Oral Nutrition/Hydration Goal 2, COMPANION CAREGIVER Pt will tolerate regular solids & thin liquids via small single cup sips w/ no overt s/sxs aspiration/distress w/ 100% acc and no cues -MP Time Frame (Oral Nutrition/Hydration Goal 2, COMPANION CAREGIVER) short term goal (STG);by discharge -MP Pharyngeal Strengthening Exercise Goal 1 (COMPANION CAREGIVER) Activity (Pharyngeal Strengthening Goal 1, COMPANION CAREGIVER) increase superior movement of the hyolaryngeal complex;increase anterior movement of the hyolaryngeal complex;increase closure at entrance to airway/closure of airway at glottis;increase squeeze/positive pressure generation;increase tongue base retraction -MP Increase Superior Movement of the Hyolaryngeal Complex effortful pitch glide (falsetto + pharyngealsqueeze);Darryn -MP Increase Anterior Movement of the Hyolaryngeal Complex chin tuck against resistance (CTAR) -MP Increase Closure at Entrance to Airway/Closure of Airway at Glottis super- supraglottic swallow -MP Increase Squeeze/Positive Pressure Generation hard effortful swallow -MP Increase Tongue Base Retraction adan -MP Lenore/Accuracy (Pharyngeal Strengthening Goal 1, COMPANION CAREGIVER) with minimal cues (75-90% accuracy) -MP Time Frame (Pharyngeal Strengthening Goal 1, COMPANION CAREGIVER) short term goal (STG);by discharge -MP Swallow Management Recall Goal 1 (COMPANION CAREGIVER) Activity (Swallow Management Recall Goal 1, COMPANION CAREGIVER) recall of;safe diet/liquid level;safe diet level/texture;compensatory swallow strategies/techniques -MP Lenore/Accuracy (Swallow Management Recall Goal 1, COMPANION CAREGIVER) with minimal cues (75-90% accuracy) -MP Time Frame (Swallow Management Recall Goal 1, COMPANION CAREGIVER) short term goal (STG);by discharge -MP Swallow Compensatory Strategies Goal 1 (COMPANION CAREGIVER) Activity (Swallow Compensatory Strategies/Techniques Goal 1, COMPANION CAREGIVER) small cup sips;other (see comments);during p.o. trials;during meal intake no straws -MP User Patrick (r) = Recorded By, (t) = Taken By, (c) = Cosigned By Initials Name Provider Type MP Edvin Castellanos MS CCC-COMPANION CAREGIVER Speech and Language Pathologist Time Calculation: Time Calculation- COMPANION CAREGIVER Row Name 09/08/19 1628 09/08/19 1310 Time Calculation- COMPANION CAREGIVER COMPANION CAREGIVER Start Time 1500 -MP 1115 -MP COMPANION CAREGIVER Received On 09/08/19 -MP 09/08/19 -MP User Patrick (r) = Recorded By, (t) = Taken By, (c) = Cosigned By Initials Name Provider Type Edvin Wyman MS CCC-COMPANION CAREGIVER Speech and Language Pathologist Therapy Charges for Today Code Description Service Date Service Provider Modifiers Qty 31304621174 HC ST EVAL ORAL PHARYNG SWALLOW 3 09/08/2019 Edvin Castellanos MS CCC- SLP GN [address] FIBEROPTIC ENDO EVAL SWALL 5 09/08/2019 Edvin Castellanos MS CCC-SLP GN 1 MS GRACE Don 09/08/2019 * Therapy Evaluation - Meenakshi Menjivar PT - 09/08/2019 2:14 PM EST Patient Name: Nam Mayberry : 1950 Today's Date: 09/08/2019 Admit Date: 09/07/2019 Visit Dx: No diagnosis found. Patient Active Problem List Diagnosis ??? Edema, peripheral ??? Anxiety, generalized ??? Dyslipidemia on statin ??? Essential hypertension ??? Laryngeal spasm ??? Vertigo ??? T2DM ??? H/O Asthma ??? Perennial rhinitis ??? GERD ??? Jimenez esophagus ??? DELL ??? Obesity hypoventilation syndrome ??? B12 deficiency ? ? Super obesity (BMI > 50) ??? DELL on CPAP ??? Chronic anticoagulation on Xarelto ??? Hx of Henoch-Schonlein purpura ??? Hypothyroidism ??? Chronic steroid use ??? Atrial fibrillation ??? Morbid obesity with BMI of 50.0-59.9, adult ??? Acute on chronic respiratory failure with hypoxia and hypercapnia (CMS/HCC) ??? HFrEF ??? Asthma with acute exacerbation ??? CAP (community acquired pneumonia) Past 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: Diagnosis Date ??? Anxiety [...] ??? HYSTERECTOMY 1989 ??? OOPHORECTOMY Bilateral 1989 General Information Row Name 09/08/19 1618 PT Evaluation Time/Intention Document Type evaluation - Mode of Treatment physical therapy - Row Name 09/08/19 1618 General Information Patient Profile Reviewed? yes -LS Prior Level of Function independent:;all household mobility;mod assist:;ADL's;dressing;bathing - Existing Precautions/Restrictions fall;oxygen therapy device and L/min - Barriers to Rehab previous functional deficit - Row Name 09/08/19 1618 Relationship/Environment Lives With child(nilay), adult;grandchild(nilay) - Row Name 09/08/19 1618 Resource/Environmental Concerns Current Living Arrangements home/apartment/condo - Row Name 09/08/19 1618 Home Main Entrance Number of Stairs, Main Entrance -- TBA further - Row Name 09/08/19 1618 Cognitive Assessment/Intervention- PT/OT Orientation Status (Cognition) oriented x 4 - Row Name 09/08/19 1618 Safety Issues, Functional Mobility Impairments Affecting Function (Mobility) balance;coordination;endurance/activity tolerance;shortness of breath;pain;strength;postural/trunk control;sensation/sensory awareness - User Patrick (r) = Recorded By, (t) = Taken By, (c) = Cosigned By Initials Name Provider Type LS Meenakshi Menjivar, PT Physical Therapist Mobility Row Name 09/08/19 1619 Bed Mobility Assessment/Treatment Comment (Bed Mobility) UIC - Row Name 09/08/19 1619 Transfer Assessment/Treatment Comment (Transfers) STS x2 from recliner with PT/tech on either side of pt for BUE support. C/o slight dizziness. - Row Name 09/08/19 1619 Sit-Stand Transfer Sit-Stand Lenore (Transfers) moderate assist (50% patient effort);2 person assist;verbal cues- Row Name 09/08/19 1619 Gait/Stairs Assessment/Training Lenore Level (Gait) unable to assess -LS User Patrick (r) = Recorded By, (t) = Taken By, (c) = Cosigned By Initials Name Provider Type Meenakshi Spring, PT Physical Therapist Obj/Interventions Row Name 09/08/19 1620 General ROM GENERAL ROM COMMENTS BLE WFL - Row Name 09/08/19 162 MMT (Manual Muscle Testing) General MMT Comments BLE grossly 3+/5 - Row Name 09/08/19 162 Therapeutic Exercise Lower Extremity (Therapeutic Exercise) quad sets, bilateral;gluteal sets - Lower Extremity Range of Motion (Therapeutic Exercise) ankle dorsiflexion/plantar flexion, bilateral - Exercise Type (Therapeutic Exercise) AROM (active range of motion) -LS Position (Therapeutic Exercise) seated -LS Sets/Reps (Therapeutic Exercise) 09/16 - Row Name 09/08/19 162 Static Sitting Balance Level of Lenore (Unsupported Sitting, Static Balance) minimal assist, 75% patient effort -LS Sitting Position (Unsupported Sitting, Static Balance) sitting in chair - Row Name 09/08/19 162 Static Standing Balance Level of Lenore (Supported Standing, Static Balance) minimal assist, 75% patient effort;2 person assist - Time Able to Maintain Position (Supported Standing, Static Balance) 30 to 45 seconds - Comment (Supported Standing, Static Balance) 15s x2 -[facility] Name 09/08/19 162 Sensory Assessment/Intervention Sensory General Assessment -- decreased sensation in feet bilat (L>R); able to localize LT -LS User Patrick (r) = Recorded By, (t) = Taken By, (c) = Cosigned By Initials Name Provider Type Meenakshi Spring, PT Physical Therapist Goals/Plan Row Name 09/08/19 162 Bed Mobility Goal 1 (PT) Activity/Assistive Device (Bed Mobility Goal 1, PT) sit to supine/supine to sit -LS Lenore Level/Cues Needed (Bed Mobility Goal 1, PT) minimum assist (75% or more patient effort) -LS Time Frame (Bed Mobility Goal 1, PT) 2 weeks -LS Progress/Outcomes (Bed Mobility Goal 1, PT) goal ongoing -LS Row Name 09/08/19 1625 Transfer Goal 1 (PT) Activity/Assistive Device (Transfer Goal 1, PT) [id number];walker, rolling -LS Lenore Level/Cues Needed (Transfer Goal 1, PT) contact guard assist -LS Time Frame (Transfer Goal 1, PT) 2 weeks -LS Progress/Outcome (Transfer Goal 1, PT) goal ongoing -LS Row Name 09/08/19 1625 Gait Training Goal 1 (PT) Activity/Assistive Device (Gait Training Goal 1, PT) gait (walking locomotion);walker, rolling -LS Lenore Level (Gait Training Goal 1, PT) minimum assist (75% or more patient effort) -LS Distance (Gait Goal 1, PT) 100 -LS Time Frame (Gait Training Goal 1, PT) 2 weeks -LS Progress/Outcome (Gait Training Goal 1, PT) goal ongoing - User Patrick (r) = Recorded By, (t) = Taken By, (c) = Cosigned By Initials Name Provider Type Meenakshi Spring, PT Physical Therapist Clinical Impression Row Name 09/08/19 162 Pain Assessment Additional Documentation Pain Scale: FACES Pre/Post-Treatment (Group) - Row Name 09/08/191620 Pain Scale: Numbers Pre/Post-Treatment Pain Location - Side Right -LS Pain Location - Orientation upper -LS Pain Location extremity -LS Pre/Post Treatment Pain Comment IV site; tolerated - Row Name 09/08/19 162 Pain Scale: FACES Pre/Post-Treatment Pain: FACES Scale, Pretreatment 2-->hurts little bit -LS Pain: FACES Scale, Post-Treatment 2-->hurts little bit - Row Name 09/08/19 162 Plan of Care Review Plan of Care Reviewed With patient;daughter -LS Progress improving -LS Outcome Summary PT initial evaluation completed. Pt demonstrates generalized weakness and decreasedindep re: functional mobility, warranting further skilled PT services to promote PLOF. Limited today by fatigue and c/o slight dizziness (hx vestibular baseline issues). Able to perform STS x2 with mod x2 A. Recommend SNF at d/c based upon current level of function. - Row Name 09/08/191620 Physical Therapy Clinical Impression Patient/Family Goals Statement (PT Clinical Impression) return to PLOF -LS Criteria for Skilled Interventions Met (PT Clinical Impression) yes;treatment indicated -LS Rehab Potential (PT Clinical Summary) good, to achieve stated therapy goals -LS Row Name 09/08/19 1621 Vital Signs Pre Systolic BP Rehab 170 -LS Pre Treatment Diastolic BP 105 -LS Pretreatment Heart Rate (beats/min) 66 -LS Pre SpO2 (%) 92 -LS O2 Delivery Pre Treatment hi-flow -LS Intra SpO2 (%) 89 -LS O2 Delivery Intra Treatment hi-flow -LS Post SpO2 (%) 93 -LS O2 Delivery Post Treatment hi-flow -LS Pre Patient Position Sitting -LS Intra Patient Position Standing -LS Post Patient Position Sitting -LS Row Name 09/08/19 1621 Positioning and Restraints Pre-Treatment Position in bed -LS Post Treatment Position chair -LS In Chair notified nsg;reclined;call light within reach;encouraged to call for assist;with family/caregiver;waffle cushion;legs elevated;on mechanical lift sling;with other staff;RUE elevated;LUE elevated -LS User Patrick (r) = Recorded By, (t) = Taken By, (c) = Cosigned By Initials Name Provider Type Meenakshi Spring, PT Physical Therapist Outcome Measures Row Name 09/08/19 1626 How much help from another person do you currently need... Turning from your back to your side while in flat bed without using bedrails? 2 -LS Moving from lying on back to sitting on the side of a flat bed without bedrails? 2 -LS Moving to and from a bed to a chair (including a wheelchair)? 2 -LS Standing up from a chair using your arms (e.g., wheelchair, bedside chair)? 2 -LS Climbing 3-5 steps with a railing? 1 -LS To walk in hospital room? 1 -LS AM-PAC 6 Clicks Score (PT) 10 -LS Row Name 09/08/19 1626 Functional Assessment Outcome Measure Options AM-PAC 6 Clicks Basic Mobility (PT) -LS User Patrick (r) = Recorded By, (t) = Taken By, (c) = Cosigned By Initials Name Provider Type Meenakshi Spring, PT Physical Therapist PT Recommendation and Plan Planned Therapy Interventions (PT Eval): balance training, bed mobility training, gait training, home exercise program, strengthening, transfer training, patient/family education Outcome Summary/Treatment Plan (PT) Anticipated Discharge Disposition (PT): nursing home facility Plan of Care Reviewed With: patient, daughter Progress: improving Outcome Summary: PT initial evaluation completed. Pt demonstrates generalized weakness and decreased indep re: functional mobility, warranting further skilled PT services to promote PLOF. Limited today by fatigue and c/o slight dizziness (hx vestibular baseline issues). Able to perform STS x2 with mod x2 A. Recommend SNF at d/c based upon current level of function. Time Calculation: PT Charges Row Name 09/08/19 1627 Time Calculation Start Time 1414 -LS PT Received On 09/08/19 - PT Goal Re-Cert Due Date 09/18/19 - Time Calculation- PT Total Timed Code Minutes- PT 13 minute(s) -LS Timed Charges 07100 - PT Therapeutic Exercise Minutes 3 -LS 44465 - PT Therapeutic Activity Minutes 10 -LS User Patrick (r) = Recorded By, (t) = Taken By, (c) = Cosigned By Initials Name Provider Type Meenakshi Menjivar, PT Physical Therapist Therapy Charges for Today Code Description Service Date Service Provider Modifiers Qty 99075994904 HC PT EVAL MOD COMPLEXITY 3 09/08/2019 Meenakshi Menjivar, PT GP 1 30498597539 HC PT THERAPEUTIC ACT EA 15 MIN 09/08/2019 Meenakhsi Menjivar, PT GP 1 21915432538 HC PT THER SUPP EA 15 MIN 09/08/2019 Meenakshi Menjivar, PT GP 2 PT G-Codes Outcome Measure Options: AM-PAC 6 Clicks Basic Mobility (PT) AM-PAC 6 Clicks Score (PT): 10 Meenakshi Menjivar PT 09/08/2019 * Therapy Evaluation - Edvin Castellanos, CCC-COMPANION CAREGIVER - 09/08/2019 1:10 PM EST Acute Care - Speech Language Pathology Swallow Initial Evaluation [facility] Clinical Swallow Evaluation Patient Name: Nam Mayberry : 1950 Today's Date: 09/08/2019 Admit Date: 09/07/2019 Visit Dx: No diagnosis found. Patient Active Problem List Diagnosis ??? Edema, peripheral ??? Anxiety, generalized ??? Dyslipidemia on statin ??? Essential hypertension ??? Laryngeal spasm ??? Vertigo ??? T2DM ??? H/O Asthma ??? Perennial rhinitis ??? GERD ??? Jimenez esophagus ??? DELL ??? Obesity hypoventilation syndrome ??? B12 deficiency ? ? Super obesity (BMI > 50) ??? DELL on CPAP ??? Chronic anticoagulation on Xarelto ??? Hx of Henoch-Schonlein purpura ??? Hypothyroidism ??? Chronic steroid use ??? Atrial fibrillation ??? Morbid obesity with BMI of 50.0-59.9, adult ??? Acute on chronic respiratory failure with hypoxia and hypercapnia (CMS/HCC) ??? HFrEF ??? Asthma with acute exacerbation ??? CAP (community acquired pneumonia) Past 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: Diagnosis Date ??? Anxiety [...] ??? CATARACT EXTRACTION Left 2018 ??? HYSTERECTOMY 1990 ??? OOPHORECTOMY Bilateral 1989 SWALLOW EVALUATION (last 72 hours) COMPANION CAREGIVER Adult Swallow Evaluation Row Name 09/08/19 1115 Rehab Evaluation Document Type evaluation -MP Subjective Information no complaints -MP Patient Observations alert;cooperative -MP Patient/Family Observations Family present -MP Patient Effort good -MP General Information Patient Profile Reviewed yes -MP Pertinent History Of Current Problem Transfer from [facility] w/ [id number] respiratory failure. Intubated 09/04-09/07/19 @ 1218. Hx HTN, DM2, GERD, Afib. Failed RN post-extubation screen. -MP Current Method of Nutrition NPO -MP Precautions/Limitations, Vision WFL;for purposes of eval -MP Precautions/Limitations, Hearing WFL;for purposes of eval -MP Prior Level of Function-Communication WFL -MP Prior Level of Function-Swallowing esophageal concerns;other (see comments) hx jimenez's esophagus -MP Plans/Goals Discussed with patient;family;agreed upon -MP Barriers to Rehab none identified -MP Patient's Goals for Discharge return to PO diet -MP Family Goals for Discharge patient able to return to PO diet -MP Pain Assessment Additional Documentation Pain Scale: FACES Pre/Post-Treatment (Group) -MP Pain Scale: FACES Pre/Post-Treatment Pain: FACES Scale, Pretreatment 0-->no hurt -MP Pain: FACES Scale, Post-Treatment 0-->no hurt -MP Oral Motor and Function Dentition Assessment natural, present and adequate -MP Secretion Management WNL/WFL -MP Mucosal Quality moist, healthy -MP Oral Musculature and Cranial Nerve Assessment Oral Motor General Assessment WFL -MP General Eating/Swallowing Observations Respiratory Support Currently in Use other (see comments) HFNC -MP Eating/Swallowing Skills fed by COMPANION CAREGIVER -MP Positioning During Eating upright in bed -MP Utensils Used spoon;cup;straw -MP Consistencies Trialed thin liquids;pureed -MP Clinical Swallow Eval Pharyngeal Phase suspected pharyngeal impairment -MP Clinical Swallow Evaluation Summary Clinical swallow evaluation completed. Pt given trials of ice chipx1, thin via tsp/cup/straw, & puree. DNT solid 2' aspiration risk. Multiple swallows across consistencies. Discussed w/ pt/family completing FEES to further assess swallow function & r/o aspiration prior to initiating PO diet. All in agreement. Will proceed w/ FEES this PM. -MP Pharyngeal Phase Concerns Pharyngeal Phase Concerns multiple swallows -MP Multiple Swallows thin;pudding -MP Clinical Impression COMPANION CAREGIVER Swallowing Diagnosis suspected pharyngeal dysfunction -MP Functional Impact risk of aspiration/pneumonia -MP Rehab Potential/Prognosis, Swallowing good, to achieve stated therapy goals -MP Swallow Criteria for Skilled Therapeutic Interventions Met demonstrates skilled criteria -MP Recommendations COMPANION CAREGIVER Diet Recommendation NPO;other (see comments) until FEES -MP Recommended Diagnostics FEES -MP Recommended Precautions and Strategies other (see comments) oral care BID/PRN -MP COMPANION CAREGIVER Rec. for Method of Medication Administration meds via alternate route until FEES -MP Anticipated Dischage Disposition unknown;anticipate therapy at next level of care -MP User Patrick (r) = Recorded By, (t) = Taken By, (c) = Cosigned By Initials Name Effective Dates Edvin Wyman MS [facility]-COMPANION CAREGIVER 02/23/19 - EDUCATION The patient has been educated in the following areas: Dysphagia (Swallowing Impairment). COMPANION CAREGIVER Recommendation and Plan COMPANION CAREGIVER Swallowing Diagnosis: suspected pharyngeal dysfunction COMPANION CAREGIVER Diet Recommendation: NPO, other (see comments)(until FEES) Recommended Precautions and Strategies: other (see comments)(oral care BID/PRN) COMPANION CAREGIVER Rec. for Method of Medication Administration: meds via alternate route(until FEES) Recommended Diagnostics: FEES Swallow Criteria for Skilled Therapeutic Interventions Met: demonstrates skilled criteria Anticipated Dischage Disposition: unknown, anticipate therapy at next level of care Rehab Potential/Prognosis, Swallowing: good, to achieve stated therapy goals Plan of Care Reviewed With: patient, family Time Calculation: Time Calculation- COMPANION CAREGIVER Row Name 09/08/19 1310 Time Calculation- COMPANION CAREGIVER COMPANION CAREGIVER Start Time 1115 -MP COMPANION CAREGIVER Received On 09/08/19 -MP User Patrick (r) = Recorded By, (t) = Taken By, (c) = Cosigned By Initials Name Provider Type MP Edvin Castellanos MS CCC-COMPANION CAREGIVER Speech and Language Pathologist Therapy Charges for Today Code Description Service Date Service Provider Modifiers Qty [id number] HC ST EVAL ORAL PHARYNG SWALLOW 3 09/08/2019 Edvin Castellanos MS CCC- COMPANION CAREGIVER GN 1 Edvin Castellanos MS CCC-COMPANION CAREGIVER 09/08/2019 * Patient Care Conference - Meenakshi Menjivar, PT - 09/08/2019 9:15 AM EST ICU ROUNDS: PT consult pending. * Significant Note - Carolyne Russo RN - 09/07/2019 4:33 PM EST Case notified of positive nasal swabs parainfluenza virus 1 & MRSA/oral medications held due to no OG tube and pt NPO. documented in this encounter Plan of Treatment Not on file documented as of this encounter Procedures Procedure Name Priority Date/Time Associated Diagnosis Comments POCT GLUCOSE FINGERSTICK Routine 09/15/2019 11:21 AM EST POCT GLUCOSE FINGERSTICK Routine 09/15/2019 7:29 AM EST POCT GLUCOSE FINGERSTICK Routine 09/14/2019 7:05 PM EST POCT GLUCOSE FINGERSTICK Routine 09/14/2019 4:16 PM EST POCT GLUCOSE FINGERSTICK Routine 09/14/2019 11:12 AM EST POCT GLUCOSE FINGERSTICK Routine 09/14/2019 7:58 AM EST POCT GLUCOSE FINGERSTICK Routine 09/13/2019 7:49 PM EST POCT GLUCOSE FINGERSTICK Routine 09/13/2019 4:51 PM EST POCT GLUCOSE FINGERSTICK Routine 09/13/2019 11:38 AM EST POCT GLUCOSE FINGERSTICK Routine 09/13/2019 8:14 AM EST POCT GLUCOSE FINGERSTICK Routine 09/12/2019 9:12 PM EST POCT GLUCOSE FINGERSTICK Routine 09/12/2019 3:57 PM EST POCT GLUCOSE FINGERSTICK Routine 09/12/2019 11:13 AM EST POCT GLUCOSE FINGERSTICK Routine 09/12/2019 7:26 AM EST B-TYPE NATRIURETIC PEPTIDE Routine 09/12/2019 4:16 AM EST BASIC METABOLIC PANEL Routine 09/12/2019 4:16 AM EST POCT GLUCOSE FINGERSTICK Routine 09/11/2019 9:57 PM EST POCT GLUCOSE FINGERSTICK Routine 09/11/2019 7:42 PM EST POCT GLUCOSE FINGERSTICK Routine 09/11/2019 4:19 PM EST COMPREHENSIVE METABOLIC PANEL Routine 09/11/2019 12:08 PM EST POCT GLUCOSE FINGERSTICK Routine 09/11/2019 11:30 AM EST BLOOD GAS, ARTERIAL W/CO-OXIMETRY Routine 09/11/2019 8:06 AM EST POCT GLUCOSE FINGERSTICK Routine 09/11/2019 7:47 AM EST CBC WITH AUTO DIFFERENTIAL Routine 09/11/2019 7:20 AM EST CBC AND DIFFERENTIAL Routine 09/11/2019 7:20 AM EST XR CHEST 2 VW Routine 09/11/2019 6:33 AM EST POCT GLUCOSE FINGERSTICK Routine 09/10/2019 8:01 PM EST POCT GLUCOSE FINGERSTICK Routine 09/10/2019 4:58 PM EST POCT GLUCOSE FINGERSTICK Routine 09/10/2019 11:56 AM EST POCT GLUCOSE FINGERSTICK Routine 09/10/2019 7:43 AM EST CBC WITH AUTO DIFFERENTIAL Routine 09/10/2019 6:22 AM EST CBC AND DIFFERENTIAL Routine 09/10/2019 6:22 AM EST PHOSPHORUS Routine 09/10/2019 6:22 AM EST MAGNESIUM Routine 09/10/2019 6:22 AM EST COMPREHENSIVE METABOLIC PANEL Routine 09/10/2019 6:22 AM EST POCT GLUCOSE FINGERSTICK Routine 09/10/2019 6:08 AM EST POCT GLUCOSE FINGERSTICK Routine 09/09/2019 8:06 PM EST RESPIRATORY CULTURE Routine 09/09/2019 4 :13 PM EST POCT GLUCOSE FINGERSTICK Routine 09/09/2019 4:13 PM EST POCT GLUCOSE FINGERSTICK Routine 09/09/2019 11:27 AM EST POCT GLUCOSE FINGERSTICK Routine 09/09/2019 7:21 AM EST PROCALCITONIN Routine 09/09/2019 5:34 AM EST CBC WITH AUTO DIFFERENTIAL Routine 09/09/2019 5:34 AM EST CBC AND DIFFERENTIAL Routine 09/09/2019 5:34 AM EST PHOSPHORUS Routine 09/09/2019 5:34 AM EST B-TYPE NATRIURETIC PEPTIDE Routine 09/09/2019 5:34 AM EST MAGNESIUM Routine 09/09/2019 5:34 AM EST COMPREHENSIVE METABOLIC PANEL Routine 09/09/2019 5:34 AM EST XR CHEST 1 VW Routine 09/09/2019 4:17 AM EST POCT GLUCOSE FINGERSTICK Routine 09/08/2019 7:57 PM EST POCT GLUCOSE FINGERSTICK Routine 09/08/2019 5:19 PM EST FIBEROPTIC ENDO (FEES) Routine 0 3:16 PM EST POCT GLUCOSE FINGERSTICK Routine 09/08/2019 12:[address] CHEST WO CONTRAST DIAGNOSTIC Routine 09/08/2019 10:02 AM EST PROCALCITONIN Routine 09/08/2019 6:42 AM EST PHOSPHORUS Routine 09/08/2019 6:42 AM EST B-TYPE NATRIURETIC PEPTIDE Routine 09/08/2019 6:42 AM EST MAGNESIUM Routine 09/08/2019 6:42 AM EST COMPREHENSIVE METABOLIC PANEL Routine 09/08/2019 6:42 AM EST POCT GLUCOSE FINGERSTICK Routine 09/08/2019 5:41 AM EST XR CHEST 1 VW Routine 09/08/2019 4:46 AM EST CBC WITH AUTO DIFFERENTIAL Routine 09/08/2019 4:33 AM EST CBC AND DIFFERENTIAL Routine 09/08/2019 4:33 AM EST ECG 12-LEAD Routine 09/08/2019 3:55 AM EST BLOOD GAS, ARTERIAL W/CO-OXIMETRY Routine 09/08/2019 3:53 AM EST POCT GLUCOSE FINGERSTICK Routine 09/07/2019 11:13 PM EST POCT GLUCOSE FINGERSTICK Routine 09/07/2019 6:07 PM EST HEMOGLOBIN A1C Routine 09/07/2019 4:10 PM EST MRSA DNA PROBE STAT 09/07/2019 2:38 PM EST ZZZRESPIRATORY PANEL, PCR (WITHOUT COVID) Routine 09/07/2019 2:37 PM EST POCT GLUCOSE FINGERSTICK Routine 09/07/2019 12:37 PM EST PROCALCITONIN Routine 09/07/2019 10:27 AM EST TSH Routine 09/07/2019 10:27 AM EST T4, FREE Routine 09/07/2019 10:27 AM EST PHOSPHORUS Routine 09/07/2019 10:27 AM EST MAGNESIUM Routine 09/07/2019 10:27 AM EST COMPREHENSIVE METABOLIC PANEL STAT 09/07/2019 10:27 AM EST SCAN SLIDE Routine 09/07/2019 8:45 AM EST CBC WITH AUTO DIFFERENTIAL Routine 09/07/2019 8:45 AM EST LACTIC ACID, PLASMA Routine 09/07/2019 8 :45 AM EST CALCIUM, IONIZED Routine 09/07/2019 8:45 AM EST BLOOD CULTURE Routine 09/07/2019 8:44 AM EST BLOOD CULTURE Routine 09/07/2019 8:38 AM EST POCT GLUCOSE FINGERSTICK Routine 09/07/2019 5:50 AM EST BLOOD GAS, ARTERIAL W/CO-OXIMETRY Routine 09/07/2019 4:16 AM EST ECG 12-LEAD Routine 09/07/2019 4:02 AM EST XR CHEST 1 VW STAT 09/07/2019 3:15 AM EST XR ABDOMEN KUB STAT 09/07/2019 3:15 AM EST URINALYSIS, MICROSCOPIC ONLY Routine 09/07/2019 2:59 AM EST URINALYSIS W/ CULTURE IF INDICATED Routine 09/07/2019 2:59 AM EST URINE CULTURE Routine 09/07/2019 2:59 AM EST SCANNED - TELEMETRY 09/07/2019 SCANNED - TELEMETRY 09/07/2019 SCANNED - TELEMETRY 09/07/2019 SCANNED - TELEMETRY 09/07/2019 SCANNED - TELEMETRY 09/07/2019 SCANNED - TELEMETRY 09/07/2019 SCANNED - TELEMETRY 09/07/2019 SCANNED - TELEMETRY 09/07/2019 SCANNED - TELEMETRY 09/07/2019 SCANNED - TELEMETRY 09/07/2019 SCANNED - TELEMETRY 09/07/2019 documented in this encounter Results * (ABNORMAL) POC Glucose Once (09/15/2019 11:21 AM EST) Glucose 221(H) 70 - 130 mg/dL 09/15/2019 11:28 AM EST [facility] Blood 09/15/2019 11:2 1 AM EST 09/15/2019 11:28 AM EST Jose L Olguin MD POINT OF CARE TEST ORDERABLES F inal Result Performing Organization Address [facility] Co de Phone Number [facility]
[address] [place] [address], * (ABNORMAL) POC Glucose Once (09/15/2019 7:29 AM EST) Glucose 172(H) 70 - 130 mg/dL 09/15/2019 7:35 AM EST [facility] Blood 09/15/2019 7:29 AM EST 09/15/2019 7:35 AM EST Jose L Olguin MD POINT OF CARE TEST ORDERABLES F inal Result Performing Organization Address City/[facility] Co de Phone Number [facility]
[address] [place] [address], * (ABNORMAL) POC Glucose Once (09/14/2019 7:05 PM EST) Glucose 354(H) 70 - 130 mg/dL 09/14/2019 7:16 PM EST [facility] Blood 09/14/2019 7:05 PM EST 09/14/2019 7:16 PM EST Jose L Olguin MD POINT OF CARE TEST ORDERABLES F inal Result Performing Organization Address City/[facility]/ZIP Co de Phone Number [facility]
[address] [place] [address], * (ABNORMAL) POC Glucose Once (09/14/2019 4:16 PM EST) Glucose 352(H) 70 - 130 mg/dL 09/14/2019 4:18 PM EST [facility] Blood 09/14/2019 4:16 PM EST 09/14/2019 4:18 PM EST Jose L Olguin MD POINT OF CARE TEST ORDERABLES F inal Result Performing Organization Address [facility] Co de Phone Number [facility]
[address] [place] [address], * (ABNORMAL) POC Glucose Once (09/14/2019 11:12 AM EST) Glucose 291(H) 70 - 130 mg/dL 09/14/2019 11:14 AM EST [facility] Blood 09/14/2019 11:1 2 AM EST 09/14/2019 11:13 AM EST Jose L Olguin MD POINT OF CARE TEST ORDERABLES F inal Result Performing Organization Address City/[facility]/ZIP Co de Phone Number [facility]
[address] [place] [address], * (ABNORMAL) POC Glucose Once (09/14/2019 7:58 AM EST) Glucose 177(H) 70 - 130 mg/dL 09/14/2019 8:00 AM EST [facility] Blood 09/14/2019 7:58 AM EST 09/14/2019 8:00 AM EST Jose L Olguin MD POINT OF CARE TEST ORDERABLES F inal Result Performing Organization Address [facility] Co de Phone Number [facility]
[address] [place] [address], * (ABNORMAL) POC Glucose Once (09/13/2019 7:49 PM EST) Glucose 326(H) 70 - 130 mg/dL 09/13/2019 7:52 PM EST [facility] Blood 09/13/2019 7:49 PM EST 09/13/2019 7:52 PM EST Jose L Olguin MD POINT OF CARE TEST ORDERABLES F inal Result Performing Organization Address [facility] Phone Number [facility]
[address] [place] [address], * (ABNORMAL) POC Glucose Once (09/13/2019 4:51 PM EST) Glucose 323(H) 70 - 130 mg/dL 09/13/2019 5:00 PM EST [facility] Blood 09/13/2019 4:51 PM EST 09/13/2019 5:00 PM EST Jose L Olguin MD POINT OF CARE TEST ORDERABLES F inal Result Performing Organization Address [facility] Co de Phone Number [facility]
[address] [place] [address], * (ABNORMAL) POC Glucose Once (09/13/2019 11:38 AM EST) Glucose 213(H) 70 - 130 mg/dL 09/13/2019 11:49 AM EST [facility] Blood 09/13/2019 11:3 8 AM EST 09/13/2019 11:49 AM EST Jose L Olguin MD POINT OF CARE TEST ORDERABLES F inal Result Performing Organization Address [facility]/ZIP Co de Phone Number [facility]
[address] [place] [address], * (ABNORMAL) POC Glucose Once (09/13/2019 8:14 AM EST) Glucose 177(H) 70 - 130 mg/dL 09/13/2019 8:16 AM EST [facility] Blood 09/13/2019 8:14 AM EST 09/13/2019 8:16 AM EST Jose L Olguin MD POINT OF CARE TEST ORDERABLES F inal Result Performing Organization Address [facility] Co de Phone Number [facility]
[address] [place] [address], * (ABNORMAL) POC Glucose Once (09/12/2019 9:12 PM EST) Glucose 274(H) 70 - 130 mg/dL 09/12/2019 9:14 PM EST [facility] Blood 09/12/2019 9:12 PM EST 09/12/2019 9:14 PM EST Jonnathan Grajeda MD POINT OF CARE TEST ORD ERABLES Final Result Performing Organization Address City/[facility] Co de Phone Number [facility]
[address] [place] [address], * (ABNORMAL) POC Glucose Once (09/12/2019 3:57 PM EST) Glucose 314(H) 70 - 130 mg/dL 09/12/2019 3:58 PM EST [facility] Blood 09/12/2019 3:57 PM EST 09/12/2019 3:58 PM EST Jonnathan Grajeda MD POINT OF CARE TEST ORD ERABLES Final Result Performing Organization Address [facility] Co de Phone Number [facility]
[address] [place] [address], * (ABNORMAL) POC Glucose Once (09/12/2019 11:13 AM EST) Glucose 199(H) 70 - 130 mg/dL 09/12/2019 11:18 AM EST [facility] Blood 09/12/2019 11:1 3 AM EST 09/12/2019 11:18 AM EST Jonnathan Grajeda MD POINT OF CARE TEST ORD ERABLES Final Result Performing Organization Address [facility] Co de Phone Number [facility]
[address] [place] [address], * (ABNORMAL) POC Glucose Once (09/12/2019 7:26 AM EST) Glucose 146(H) 70 - 130 mg/dL 09/12/2019 7:28 AM EST [facility] Blood 09/12/2019 7:26 AM EST 09/12/2019 7:28 AM EST Jonnathan Grjaeda MD POINT OF CARE TEST ORD ERABLES Final Result Performing Organization Address City/[facility] Co de Phone Number [facility]
[address] [place] [address], [place] [phone] * BNP (09/12/2019 4:16 AM EST) proBNP 168.3 5.0 - 900.0 pg/mL 09/12/2019 5:14 AM EST [facility] Blood Venipuncture / Unknown 09/12/2019 4:16 AM EST 09/12/2019 4:49 AM EST [facility] - 09/12/2019 5:14 AM EST Among patients with dyspnea, NT-proBNP is highly sensitive for the detection of acute congestive heart failure. In addition NT-proBNP of <300 pg/ml effectively rules out acute congestive heart failure with 99% negative predictive value. Luis Lemus MD LAB BLOOD ORDERABLES Final Re sult [facility]
[address] [place] [address], * (ABNORMAL) Basic Metabolic Panel (09/12/2019 4:16 AM EST) Glucose 193(H) 65 - 99 mg/dL 09/12/2019 5:20 AM EST [facility] BUN 20 8 - 23 mg/dL 09/12/2019 5:20 AM EST [facility] Creatinine 0.62 0.57 - 1.00 mg/dL 09/12/2019 5:20 AM EST [facility] Sodium 134(L) 136 - 145 mmol/L 09/12/2019 5:20 AM EST [facility] Potassium 4.3 3.5 - 5.2 mmol/L 09/12/2019 5:20 AM EST [facility] Chloride 92(L) 98 - 107 mmol/L 09/12/2019 5:20 AM EST [facility] CO2 31.0(H) 22.0 - 29.0 mmol/L 09/12/2019 5:20 AM EST [facility] Calcium 9.7 8.6 - 10.5 mg/dL 09/12/2019 5:20 AM [facility] eGFR Non Amer 95 >60 mL/min/1.7 3 09/12/2019 5:20 AM [facility] BUN/Creatinine Ratio 32.3(H) 7.0 - 25.0 09/12/2019 5:20 AM [facility] Anion Gap 11.0 5.0 - 15.0 mmol/L 09/12/2019 5:20 AM [facility] Blood Venipuncture / Unknown 09/12/2019 4:16 AM EST 09/12/2019 4:49 AM EST Narrative [facility] - 09/12/2019 5:20 AM EST GFR Normal >60 Chronic Kidney Disease <60 Kidney Failure <15 Luis Lemus MD LAB BLOOD ORDERABLES Final Re sult Performing Organization Address City/[facility]/ZIP Co de Phone Number [facility]
[address] [place] [address], * (ABNORMAL) POC Glucose Once (09/11/2019 9:57 PM EST) Glucose 238(H) 70 - 130 mg/dL 09/11/2019 9:59 PM EST [facility] Blood 09/11/2019 9:57 PM EST 09/11/2019 9:59 PM EST Jonnathan Grajeda MD POINT OF CARE TEST ORD ERABLES Final Result Performing Organization Address [facility] Co de Phone Number [facility]
[address] [place] [address], * (ABNORMAL) POC Glucose Once (09/11/2019 7:42 PM EST) Glucose 370(H) 70 - 130 mg/dL 09/11/2019 7:43 PM EST [facility] Blood 09/11/2019 7:42 PM EST 09/11/2019 7:43 PM EST us Jonnathan Grajeda MD POINT OF CARE TEST ORD ERABLES Final Result Performing Organization Address City/[facility]/ZIP Co de Phone Number [facility]
[address] [place] [address], * (ABNORMAL) POC Glucose Once (09/11/2019 4:19 PM EST) Glucose 319(H) 70 - 130 mg/dL 09/11/2019 4:25 PM [facility] Blood 09/11/2019 4:19 PM EST 09/11/2019 4:25 PM EST Jonnathan Grajeda MD POINT OF CARE TEST ORD ERABLES Final Result [facility]
[address] [place] [address], * (ABNORMAL) Comprehensive Metabolic Panel (09/11/2019 12:08 PM EST) Glucose 369(H) 65 - 99 mg/dL 09/11/2019 12:46 PM EST [facility] BUN 23 8 - 23 mg/dL 09/11/2019 12:46 PM [facility] Creatinine 0.76 0.57 - 1.00 mg/dL 09/11/2019 12:46 PM [facility] Sodium 133(L) 136 - 145 mmol/L 09/11/2019 12:46 PM [facility] Potassium 5.5(H) 3.5 - 5.2 mmol/L 09/11/2019 12:46 PM [facility] Chloride 91(L) 98 - 107 mmol/L 09/11/2019 12:46 PM [facility] CO2 32.0(H) 22.0 - 29.0 mmol/L 09/11/2019 12:46 PM [facility] Calcium 9.9 8.6 - 10.5 mg/dL 09/11/2019 12:46 PM [facility] Total Protein 6.6 6.0 - 8.5 g/dL 09/11/2019 12:46 PM [facility] Albumin 3.70 3.50 - 5.20 g/dL 09/11/2019 12:46 PM [facility] ALT (SGPT) 26 1 - 33 U/L 09/11/2019 12:46 PM [facility] AST (SGOT) 14 1 - 32 U/L 09/11/2019 12:46 PM EST [facility] Alkaline Phosphatase 53 39 - 117 U/L 09/11/2019 12:46 PM EST [facility] Total Bilirubin 0.4 0.2 - 1.2 mg/dL 09/11/2019 12:46 PM EST [facility] eGFR Non Amer 75 >60 mL/min/1.7 3 09/11/2019 12:46 PM EST [facility] Globulin 2.9 gm/dL 09/11/2019 12:46 PM EST [facility] A/G Ratio 1.3 g/dL 09/11/2019 12:46 PM [facility] BUN/Creatinine Ratio 30.3(H) 7.0 - 25.0 09/11/2019 12:46 PM EST [facility] Anion Gap 10.0 5.0 - 15.0 mmol/L 09/11/2019 12:46 PM EST [facility] Blood Venipuncture / Unknown 09/11/2019 12:08 PM EST 09/11/2019 12:19 PM EST Narrative [facility] - 09/11/2019 12:46 PM EST GFR Normal >60 Chronic Kidney Disease <60 Kidney Failure <15 Luis Lemus MD LAB BLOOD ORDERABLES Final Re sult Performing Organization Address City/[facility]/ZIP Co de Phone Number [facility]
[address] [place] [address], * (ABNORMAL) POC Glucose Once (09/11/2019 11:30 AM EST) Glucose 321(H) 70 - 130 mg/dL 09/11/2019 11:38 AM EST [facility] Blood 09/11/2019 11:3 0 AM EST 09/11/2019 11:38 AM EST Jonnathan Grajeda MD POINT OF CARE TEST ORD ERABLES Final Result [facility]
[address] [place] [address], * (ABNORMAL) Blood Gas, Arterial With Co-Ox (09/11/2019 8:06 AM EST) Site Right Radial 09/11/2019 8:06 AM EST [facility] Cesar's Test N/A 09/11/2019 8:06 AM EST [facility] pH, Arterial 7.448 7.350 - 7.450 pH units 09/11/2019 8:06 AM [facility] pCO2, Arterial 54.1(H) 35.0 - 45.0 mm Hg 09/11/2019 8:06 AM [facility] Comment:83 Value above refer ence range pO2, Arterial 57.4(L) 83.0 - 108.0 mm Hg 09/11/2019 8:06 AM [facility] Comment:84 Value below refer ence range HCO3, Arterial 37.3(H) 20.0 - 26.0 mmol/L 09/11/2019 8:06 AM [facility] Base Excess, Arterial 10.8(H) 0.0 - 2.0 mmol/L 09/11/2019 8:06 AM [facility] Hemoglobin, Blood Gas 16.5 14 - 18 g/dL 09/11/2019 8:06 AM [facility] Hematocrit, Blood Gas 50.7 % 09/11/2019 8:06 AM [facility] Oxyhemoglobin 88.0(L) 94 - 99 % 09/11/2019 8:06 AM [facility] Comment:84 Value below refer ence range Methemoglobin 0.50 0.00 - 1.50 % 09/11/2019 8:06 AM [facility] Carboxyhemoglobin 2.1(H) 0 - 2 % 020 8:06 AM [facility] Comment:83 Value above refer ence range CO2 Content 39.0(H) 22 - 33 mmol/L 09/11/2019 8:06 AM [facility] Temperature 37.0 C 09/11/2019 8:06 AM [facility] Barometric Pressure for Blood Gas 09/11/2019 8:06 AM [facility] Comment:N/A Modality Nasal Cannula 09/11/2019 8:06 AM [facility]ER[facility] FIO2 32 % 09/11/2019 8:06 AM [facility] Rate 0 Breaths/ minute 09/11/2019 8:06 AM [facility]ER[facility] PIP 0 cmH2O 09/11/2019 8:06 AM [facility] Comment:Meter: [id number] [employer] Supervisor: [id number] IPAP 0 09/11/2019 8:06 AM [facility]ER[facility] EPAP 0 09/11/2019 8:06 AM [facility] THERAP[facility] Note 09/11/2019 8:06 AM [facility]ER[facility] pH, Temp Corrected 7.448 pH Units 2019 8:06 AM [facility]ER[facility] pCO2, Temperature Corrected 54.1(H) 35 - 45 mm Hg 09/11/2019 8:06 AM [facility] pO2, Temperature Corrected 57.4(L) 83 - 108 mm Hg 09/11/2019 8:06 AM [facility] Arterial Blood 09/11/2019 8: 06 AM EST 09/11/2019 8:06 AM EST us Jonnathan Grajeda MD LAB BLOOD ORDERABLES F inal Result [facility]
[address] * (ABNORMAL) POC Glucose Once (09/11/2019 7:47 AM EST) Glucose 161(H) 70 - 130 mg/dL 09/11/2019 7:50 AM [facility] Blood 09/11/2019 7:47 AM EST 09/11/2019 7:50 AM EST Jonnathan Grajeda MD POINT OF CARE TEST ORD ERABLES Final Result [facility]
[address] [place] [address], * (ABNORMAL) CBC Auto Differential (09/11/2019 7:20 AM EST) Pathologist [facility] WBC 10.35 3.40 - 10.80 10*3/mm3 09/11/2019 7:52 AM EST [facility] RBC 5.22 3.77 - 5.28 10*6/mm3 09/11/2019 7:52 AM [facility] Hemoglobin 16.0(H) 12.0 - 15.9 g/dL 09/11/2019 7:52 AM [facility] Hematocrit 52.1(H) 34.0 - 46.6 % 09/11/2019 7:52 AM [facility] MCV 99.8(H) 79.0 - 97.0 fL 09/11/2019 7:52 AM [facility] MCH 30.7 26.6 - 33.0 pg 09/11/2019 7:52 AM [facility] MCHC 30.7(L) 31.5 - 35.7 g/dL 09/11/2019 7:52 AM [facility] RDW 13.0 12.3 - 15.4 % 09/11/2019 7:52 AM [facility] RDW-SD 47.9 37.0 - 54.0 fl 09/11/2019 7:52 AM [facility] MPV 10.3 6.0 - 12.0 fL 09/11/2019 7:52 AM [facility] Platelets 164 140 - 450 10*3/mm3 09/11/2019 7:52 AM [facility] Neutrophil % 71.8 42.7 - 76.0 % 09/11/2019 7:52 AM [facility] Lymphocyte % 19.5(L) 19.6 - 45.3 % 09/11/2019 7:52 AM [facility] Monocyte % 7.0 5.0 - 12.0 % 09/11/2019 7:52 AM [facility] Eosinophil % 1.2 0.3 - 6.2 % 09/11/2019 7:52 AM [facility] Basophil % 0.1 0.0 - 1.5 % 09/11/2019 7:52 AM [facility] Immature Grans % 0.4 0.0 - 0.5 % 09/11/2019 7:52 AM [facility] Neutrophils, Absolute 7.44(H) 1.70 - 7.00 10*3/mm3 09/11/2019 7:52 AM [facility] Lymphocytes, Absolute 2.02 0.70 - 3.10 10*3/mm3 09/11/2019 7:52 AM [facility] Monocytes, Absolute 0.72 0.10 - 0.90 10*3/mm3 09/11/2019 7:52 AM [facility] Eosinophils, Absolute 0.12 0.00 - 0.40 10*3/mm3 09/11/2019 7:52 AM [facility] Basophils, Absolute 0.01 0.00 - 0.20 10*3/mm3 09/11/2019 7:52 AM [facility] Immature Grans, Absolute 0.04 0.00 - 0.05 10*3/mm3 09/11/2019 7:52 AM [facility] nRBC 0.0 0.0 - 0.2 /100 WBC 09/11/2019 7:52 AM [facility] Blood Venipuncture / Unknown 09/11/2019 7:20 AM EST 09/11/2019 7:26 AM EST us Luis Lemus MD LAB BLOOD ORDERABLES Final Re sult [facility]
[address] [place] [address], * XR Chest 2 View (09/11/2019 6:33 AM EST) Anatomical Region Laterality Modality Body N/A Radiographic Nabeel ging 09/11/2019 8:13 AM EST Impressions 09/11/2019 11:19 PM EST Improving left basilar atelectasis. ?? DICTATED: ?? 09/11/2019 EDITED/ls : ?? 09/11/2019 This report was finalized on 09/11/2019 11:[address] Clay Rodriguez MD. Narrative 09/11/2019 11:19 PM EST EXAMINATION: XR CHEST ??2 VIEWS - 09/11/2019 INDICATION: Follow-up left lower lobe infiltrate. COMPARISON: 09/09/2019 FINDINGS: Left basilar atelectasis appears a little less dense. Left upper lung is better expanded. Right lung remains grossly clear. No pneumothorax or effusion is seen. The heart is mildly enlarged. Vasculature appears ??normal. Procedure Note Clay Rodriguez MD - 09/11/2019 EXAMINATION: XR CHEST 2 VIEWS - 09/11/2019 INDICATION: Follow-up left lower lobe infiltrate. COMPARISON: 09/09/2019 FINDINGS: Left basilar atelectasis appears a little less dense. Left upper lung is better expanded. Right lung remains grossly clear. No pneumothorax or effusion is seen. The heart is mildly enlarged. Vasculature appears normal. IMPRESSION: Improving left basilar atelectasis. DICTATED: 09/11/2019 EDITED/ls : 09/11/2019 This report was finalized on 09/11/2019 11:[address] Clay Rodriguez MD. Luis Lemus MD IMG DIAGNOSTIC IMAGING ORDERA BLES Final Result * (ABNORMAL) POC Glucose Once (09/10/2019 8:01 PM EST) Glucose 357(H) 70 - 130 mg/dL 09/10/2019 8:21 PM EST [facility] Blood 09/10/2019 8:01 PM EST 09/10/2019 8:20 PM EST us Jonnathan Grajeda MD POINT OF CARE TEST ORD ERABLES Final Result Performing Organization Address City/[facility]/ZIP Co de Phone Number [facility] [place] [address], * (ABNORMAL) POC Glucose Once (09/10/2019 4:58 PM EST) Glucose 313(H) 70 - 130 mg/dL 09/10/2019 5:01 PM EST [facility] Blood 09/10/2019 4:58 PM EST 09/10/2019 5:01 PM EST Jonnathan Grajeda MD POINT OF CARE TEST ORD ERABLES Final Result Performing Organization Address [facility] Co de Phone Number [facility] [place] [address], * (ABNORMAL) POC Glucose Once (09/10/2019 11:56 AM EST) Glucose 232(H) 70 - 130 mg/dL 09/10/2019 12:07 PM EST [facility] Blood 09/10/2019 11:5 6 AM EST 09/10/2019 12:07 PM EST Jonnathan Grajeda MD POINT OF CARE TEST ORD ERABLES Final Result Performing Organization Address City/[facility] Co de Phone Number [facility]
[address] [place] [address], [place] [phone] * (ABNORMAL) POC Glucose Once (09/10/2019 7:43 AM EST) Glucose 189(H) 70 - 130 mg/dL 09/10/2019 8:01 AM EST [facility] Blood 09/10/2019 7:43 AM EST 09/10/2019 8:01 AM EST us Jonnathan Grajeda MD POINT OF CARE TEST ORD ERABLES Final Result [facility]
[address] [place] [address], * (ABNORMAL) CBC Auto Differential (09/10/2019 6:22 AM EST) WBC 7.49 3.40 - 10.80 10*3/mm3 09/10/2019 7:03 AM EST [facility] RBC 5.19 3.77 - 5.28 10*6/mm3 09/10/2019 7:03 AM [facility] Hemoglobin 15.8 12.0 - 15.9 g/dL 09/10/2019 7:03 AM [facility] Hematocrit 50.1(H) 34.0 - 46.6 % 09/10/2019 7:03 AM [facility] MCV 96.5 79.0 - 97.0 fL 09/10/2019 7:03 AM EST [facility] MCH 30.4 26.6 - 33.0 pg 09/10/2019 7:03 AM [facility] MCHC 31.5 31.5 - 35.7 g/dL 09/10/2019 7:03 AM [facility] RDW 13.1 12.3 - 15.4 % 09/10/2019 7:03 AM [facility] RDW-SD 46.8 37.0 - 54.0 fl 09/10/2019 7:03 AM [facility] MPV 10.2 6.0 - 12.0 fL 09/10/2019 7:03 AM [facility] Platelets 142 140 - 450 10*3/mm3 09/10/2019 7:03 AM [facility] Neutrophil % 80.0(H) 42.7 - 76.0 % 09/10/2019 7:03 AM [facility] Lymphocyte % 13.2(L) 19.6 - 45.3 % 09/10/2019 7:03 AM [facility] Monocyte % 6.3 5.0 - 12.0 % 09/10/2019 7:03 AM [facility] Eosinophil % 0.4 0.3 - 6.2 % 09/10/2019 7:03 AM [facility] Basophil % 0.0 0.0 - 1.5 % 09/10/2019 7:03 AM [facility] Immature Grans % 0.1 0.0 - 0.5 % 09/10/2019 7:03 AM [facility] Neutrophils, Absolute 5.99 1.70 - 7.00 10*3/mm3 09/10/2019 7:03 AM [facility] Lymphocytes, Absolute 0.99 0.70 - 3.10 10*3/mm3 09/10/2019 7:03 AM [facility] Monocytes, Absolute 0.47 0.10 - 0.90 10*3/mm3 09/10/2019 7:03 AM [facility] Eosinophils, Absolute 0.03 0.00 - 0.40 10*3/mm3 09/10/2019 7:03 AM [facility] Basophils, Absolute 0.00 0.00 - 0.20 10*3/mm3 09/10/2019 7:03 AM [facility] Immature Grans, Absolute 0.01 0.00 - 0.05 10*3/mm3 09/10/2019 7:03 AM [facility] nRBC 0.0 0.0 - 0.2 /100 WBC 09/10/2019 7:03 AM [facility] Blood Venipuncture / Unknown 09/10/2019 6:22 AM EST 09/10/2019 6:34 AM EST us Crescencio Galvan MD LAB BLOOD ORDERABL ES Final Result [facility]
[address] [place] [address], * Phosphorus (09/10/2019 6:22 AM EST) Phosphorus 3.4 2.5 - 4.5 mg/dL 09/10/2019 7:21 AM EST [facility] Blood Venipuncture / Unknown 09/10/2019 6:22 AM EST 09/10/2019 6:34 AM EST Crescencio Galvan MD LAB BLOOD ORDERABL ES Final Result [facility]
[address] [place] [address], * Magnesium (09/10/2019 6:22 AM EST) Magnesium 2.0 1.6 - 2.4 mg/dL 09/10/2019 7:21 AM EST [facility] Blood Venipuncture / Unknown 09/10/2019 6:22 AM EST 09/10/2019 6:34 AM EST Crescencio Galvan MD LAB BLOOD ORDERABL ES Final Result [facility]
[address] [place] [address], * (ABNORMAL) Comprehensive Metabolic Panel (09/10/2019 6:22 AM EST) Glucose 239(H) 65 - 99 mg/dL 09/10/2019 7:21 AM EST [facility] BUN 23 8 - 23 mg/dL 09/10/2019 7:21 AM [facility] Creatinine 0.66 0.57 - 1.00 mg/dL 09/10/2019 7:21 AM [facility] Sodium 137 136 - 145 mmol/L 09/10/2019 7:21 AM [facility] Potassium 3.8 3.5 - 5.2 mmol/L 09/10/2019 7:21 AM [facility] Chloride 91(L) 98 - 107 mmol/L 09/10/2019 7:21 AM [facility] CO2 35.0(H) 22.0 - 29.0 mmol/L 09/10/2019 7:21 AM [facility] Calcium 9.4 8.6 - 10.5 mg/dL 09/10/2019 7:21 AM [facility] Total Protein 5.9(L) 6.0 - 8.5 g/dL 09/10/2019 7:21 AM [facility] Albumin 3.30(L) 3.50 - 5.20 g/dL 09/10/2019 7:21 AM [facility] ALT (SGPT) 29 1 - 33 U/L 09/10/2019 7:21 AM [facility] AST (SGOT) 16 1 - 32 U/L 09/10/2019 7:21 AM [facility] Alkaline Phosphatase 49 39 - 117 U/L 09/10/2019 7:21 AM [facility] Total Bilirubin 0.5 0.2 - 1.2 mg/dL 09/10/2019 7:21 AM [facility] eGFR Non Amer 89 >60 mL/min/1.7 3 09/10/2019 7:21 AM [facility] Globulin 2.6 gm/dL 09/10/2019 7:21 AM [facility] A/G Ratio 1.3 g/dL 09/10/2019 7:21 AM [facility] BUN/Creatinine Ratio 34.8(H) 7.0 - 25.0 09/10/2019 7:21 AM [facility] Anion Gap 11.0 5.0 - 15.0 mmol/L 09/10/2019 7:21 AM [facility] Blood Venipuncture / Unknown 09/10/2019 6:22 AM EST 09/10/2019 6:34 AM [facility] - 09/10/2019 7:21 AM EST GFR Normal >60 Chronic Kidney Disease <60 Kidney Failure <15 Crescencio Galvan MD LAB BLOOD ORDERABL ES Final Result Performing Organization Address [facility]/ZIP Co de Phone Number [facility]
[address] [place] [address], * (ABNORMAL) POC Glucose Once (09/10/2019 6:08 AM EST) Glucose 222(H) 70 - 130 mg/dL 09/10/2019 6:14 AM EST [facility] Blood 09/10/2019 6:08 AM EST 09/10/2019 6:14 AM EST us Jonnathan Grajeda MD POINT OF CARE TEST ORD ERABLES Final Result Performing Organization Address [facility] Co de Phone Number [facility]
[address] [place] [address], * (ABNORMAL) POC Glucose Once (09/09/2019 8:06 PM EST) Glucose 297(H) 70 - 130 mg/dL 09/09/2019 8:10 PM EST [facility] Blood 09/09/2019 8:06 PM EST 09/09/2019 8:10 PM EST us Jonnathan Grajeda MD POINT OF CARE TEST ORD ERABLES Final Result Performing Organization Address [facility]/ZIP Co de Phone Number [facility]
[address] [place] [address], * (ABNORMAL) POC Glucose Once (09/09/2019 4:13 PM EST) Glucose 187(H) 70 - 130 mg/dL 09/09/2019 4:17 PM EST [facility] Blood 09/09/2019 4:13 PM EST 09/09/2019 4:17 PM EST us Jonnathan Grajeda MD POINT OF CARE TEST ORD ERABLES Final Result Performing Organization Address [facility]/ZIP Co de Phone Number [facility]
[address] [place] [address], * Respiratory Culture - Sputum, Cough (09/09/2019 4:13 PM EST) Respiratory Culture Scant growth (1+) Normal Respiratory Rose RONI 09/11/2019 11:25 AM EST [facility] Gram Stain Moderate (3+) WBCs per low power field 09/11/2019 11:25 AM EST [facility] Gram Stain Few (2+) Epithelial cells per low power field 09/11/2019 11:25 AM EST [facility] Gram Stain No organisms seen 09/11/2019 11:25 AM EST [facility] Sputum Coughed sputum specimen / Unknown Collection / Unknown 09/09/2019 4:13 PM EST 09/09/2019 5:51 PM EST Crescencio Galvan MD MICROBIOLOGY - GEN ERAL ORDERABLES Final Result Performing Organization Address [facility] de Phone Number [facility]
[address] [place] [address], [facility]
[address] [place] [address], [place] [phone] * (ABNORMAL) POC Glucose Once (09/09/2019 11:27 AM EST) Glucose 238(H) 70 - 130 mg/dL 09/09/2019 11:50 AM EST [facility] Blood 09/09/2019 11:2 7 AM EST 09/09/2019 11:50 AM EST Jonnathan Grajeda MD POINT OF CARE TEST ORD ERABLES Final Result Performing Organization Address [facility] Co de Phone Number [facility]
[address] [place] [address], [place] [phone] * (ABNORMAL) POC Glucose Once (09/09/2019 7:21 AM EST) Glucose 253(H) 70 - 130 mg/dL 09/09/2019 7:25 AM [facility] Blood 09/09/2019 7:21 AM EST 09/09/2019 7:25 AM EST Jonnathan Grajeda MD POINT OF CARE TEST ORD ERABLES Final Result [facility]
[address] [place] [address], * (ABNORMAL) CBC Auto Differential (09/09/2019 5:34 AM EST) WBC 5.69 3.40 - 10.80 10*3/mm3 09/09/2019 6:27 AM [facility] RBC 5.00 3.77 - 5.28 10*6/mm3 09/09/2019 6:27 AM [facility] Hemoglobin 15.2 12.0 - 15.9 g/dL 09/09/2019 6:27 AM [facility] Hematocrit 49.1(H) 34.0 - 46.6 % 09/09/2019 6:27 AM [facility] MCV 98.2(H) 79.0 - 97.0 fL 09/09/2019 6:27 AM [facility] MCH 30.4 26.6 - 33.0 pg 09/09/2019 6:27 AM [facility] MCHC 31.0(L) 31.5 - 35.7 g/dL 09/09/2019 6:27 AM [facility] RDW 13.1 12.3 - 15.4 % 09/09/2019 6:27 AM [facility] RDW-SD 46.5 37.0 - 54.0 fl 09/09/2019 6:27 AM [facility] MPV 9.9 6.0 - 12.0 fL 09/09/2019 6:27 AM [facility] Platelets 130(L) 140 - 450 10*3/mm3 09/09/2019 6:27 AM [facility] Neutrophil % 78.8(H) 42.7 - 76.0 % 09/09/2019 6:27 AM [facility] Lymphocyte % 14.8(L) 19.6 - 45.3 % 09/09/2019 6:27 AM [facility] Monocyte % 5.8 5.0 - 12.0 % 09/09/2019 6:27 AM [facility] Eosinophil % 0.0(L) 0.3 - 6.2 % 09/09/2019 6:27 AM [facility] Basophil % 0.2 0.0 - 1.5 % 09/09/2019 6:27 AM [facility] Immature Grans % 0.4 0.0 - 0.5 % 09/09/2019 6:27 AM [facility] Neutrophils, Absolute 4.49 1.70 - 7.00 10*3/mm3 09/09/2019 6:27 AM [facility] Lymphocytes, Absolute 0.84 0.70 - 3.10 10*3/mm3 09/09/2019 6:27 AM [facility] Monocytes, Absolute 0.33 0.10 - 0.90 10*3/mm3 09/09/2019 6:27 AM [facility] Eosinophils, Absolute 0.00 0.00 - 0.40 10*3/mm3 09/09/2019 6:27 AM [facility] Basophils, Absolute 0.01 0.00 - 0.20 10*3/mm3 09/09/2019 6:27 AM [facility] Immature Grans, Absolute 0.02 0.00 - 0.05 10*3/mm3 09/09/2019 6:27 AM [facility] nRBC 0.0 0.0 - 0.2 /100 WBC 09/09/2019 6:27 AM [facility] Blood Venipuncture / Unknown 09/09/2019 5:34 AM EST 09/09/2019 6:06 AM EST us Crescencio Galvan MD LAB BLOOD ORDERABL ES Final Result [facility]
[address] [place] [address], * (ABNORMAL) Procalcitonin (09/09/2019 5:34 AM EST) Procalcitonin 0.07(L) 0.10 - 0.25 ng/mL 09/09/2019 6:43 AM EST [facility] Blood Venipuncture / Unknown 09/09/2019 5:34 AM EST 09/09/2019 5:57 AM EST Narrative [facility] - 09/09/2019 6:43 AM EST As a Marker for Sepsis (Non-Neonates): 1. <0.5 ng/mL represents a low risk of severe sepsis and/or septic shock. 1. >2 ng/mL represents a high risk of severe sepsis and/or septic shock. As a Marker for Lower Respiratory Tract Infections that require antibiotic therapy: PCT on Admission ? Antibiotic Therapy ? 6-12 Hrs later > 0.5 ?Strongly Recommended ? >0.25 - <0.5 ? Recommended 0.1 - 0.25 ? Discouraged ? Remeasure/reassess PCT <0.1 ? Strongly Discouraged ?Remeasure/reassess PCT ?? As 28 day mortality risk marker: Change in Procalcitonin Result (> 80 % or <=80 %) if Day 0 (or Day 1) and Day 4 values are available. Refer to http://www.ycadsl-lze-ugydfojwgo.com/ Change in PCT <=80 % A decrease of PCT levels below or equal to 80 % defines a positive change in PCT test result representing a higher risk for 28-day all-cause mortality of patients diagnosed with severe sepsis or septic shock. Change in PCT > 80 % A decrease of PCT levels of more than 80 % defines a negative change in PCT result representing a lower risk for 28-day all-cause mortality of patients diagnosed with severe sepsis or septic shock. Crescencio Galvan MD LAB BLOOD ORDERABL ES Final Result Performing Organization Address [facility] de Phone Number [facility]
[address] [place] [address], * BNP (09/09/2019 5:34 AM EST) proBNP 314.4 5.0 - 900.0 pg/mL 09/09/2019 6:34 AM EST [facility] Blood Venipuncture / Unknown 09/09/2019 5:34 AM EST 09/09/2019 5:57 AM EST Narrative [facility] - 09/09/2019 6:34 AM EST Among patients with dyspnea, NT-proBNP is highly sensitive for the detection of acute congestive heart failure. In addition NT-proBNP of <300 pg/ml effectively rules out acute congestive heart failure with 99% negative predictive value. us Crescencio Galvan MD LAB BLOOD ORDERABL ES Final Result Performing Organization Address [facility] de Phone Number [facility]
[address] [place] [address], * Phosphorus (09/09/2019 5:34 AM EST) Phosphorus 3.3 2.5 - 4.5 mg/dL 09/09/2019 6:59 AM EST [facility] Blood Venipuncture / Unknown 09/09/2019 5:34 AM EST 09/09/2019 5:57 AM EST Crescencio Galvan MD LAB BLOOD ORDERABL ES Final Result Performing Organization Address City/[facility]/ZIP Co de Phone Number [facility]
[address] [place] [address], * Magnesium (09/09/2019 5:34 AM EST) Magnesium 2.0 1.6 - 2.4 mg/dL 09/09/2019 6:59 AM EST [facility] Blood Venipuncture / Unknown 09/09/2019 5:34 AM EST 09/09/2019 5:57 AM EST Crescencio Galvan MD LAB BLOOD ORDERABL ES Final Result Performing Organization Address [facility] Co de Phone Number [facility] [place] [address], * (ABNORMAL) Comprehensive Metabolic Panel (09/09/2019 5:34 AM EST) Glucose 261(H) 65 - 99 mg/dL 09/09/2019 6:59 AM EST [facility] BUN 25(H) 8 - 23 mg/dL 09/09/2019 6:59 AM EST [facility] Creatinine 0.69 0.57 - 1.00 mg/dL 09/09/2019 6:59 AM EST [facility] Sodium 137 136 - 145 mmol/L 09/09/2019 6:59 AM EST [facility] Potassium 3.7 3.5 - 5.2 mmol/L 09/09/2019 6:59 AM EST [facility] Chloride 89(L) 98 - 107 mmol/L 09/09/2019 6:59 AM EST [facility] CO2 37.0(H) 22.0 - 29.0 mmol/L 09/09/2019 6:59 AM EST [facility] Calcium 9.1 8.6 - 10.5 mg/dL 09/09/2019 6:59 AM EST [facility] Total Protein 6.0 6.0 - 8.5 g/dL 09/09/2019 6:59 AM [facility] Albumin 3.20(L) 3.50 - 5.20 g/dL 09/09/2019 6:59 AM [facility] ALT (SGPT) 33 1 - 33 U/L 09/09/2019 6:59 AM [facility] AST (SGOT) 21 1 - 32 U/L 09/09/2019 6:59 AM EST [facility] Alkaline Phosphatase 47 39 - 117 U/L 09/09/2019 6:59 AM [facility] Total Bilirubin 0.4 0.2 - 1.2 mg/dL 09/09/2019 6:59 AM [facility] eGFR Non Amer 84 >60 mL/min/1.7 3 09/09/2019 6:59 AM [facility] Globulin 2.8 gm/dL 09/09/2019 6:59 AM [facility] A/G Ratio 1.1 g/dL 09/09/2019 6:59 AM [facility] BUN/Creatinine Ratio 36.2(H) 7.0 - 25.0 09/09/2019 6:59 AM [facility] Anion Gap 11.0 5.0 - 15.0 mmol/L 09/09/2019 6:59 AM [facility] Blood Venipuncture / Unknown 09/09/2019 5:34 AM EST 09/09/2019 5:57 AM EST [facility] - 09/09/2019 6:59 AM EST GFR Normal >60 Chronic Kidney Disease <60 Kidney Failure <15 us Crescencio Galvan MD LAB BLOOD ORDERABL ES Final Result [facility]
[address] [place] [address], * XR Chest 1 View (09/09/2019 4:17 AM EST) Anatomical Region Laterality Modality Body N/A Radiographic Nabeel ging 09/09/2019 8:46 AM EST Impressions 09/09/2019 3:13 PM EST There has been no change since the previous examination of the previous day. D: ??09/09/2019 E: ??09/09/2019 This report was finalized on 09/09/2019 3:[address] Kevin Vergara MD. Narrative 09/09/2019 3:13 PM EST EXAMINATION: XR CHEST 1 VW- 09/09/2019 INDICATION: Followup COMPARISON: 09/08/2019 FINDINGS: Heart size is normal. There is persistent airspace disease in the left lower lobe and probable small left pleural effusion. There has been no change when compared to the previous examination of ??09/08/2019. Procedure Note Juan Vergara MD - 09/09/2019 EXAMINATION: XR CHEST 1 VW- 09/09/2019 INDICATION: Followup COMPARISON: 09/08/2019 FINDINGS: Heart size is normal. There is persistent airspace disease in the left lower lobe and probable small left pleural effusion. There has been no change when compared to the previous examination of 09/08/2019. IMPRESSION: There has been no change since the previous examination of the previous day. E: 09/09/2019 This report was finalized on 09/09/2019 3:[address] Kevin Vergara MD. Crescencio Galvan MD IMG DIAGNOSTIC NABEEL GING ORDERABLES Final Result * (ABNORMAL) POC Glucose Once (09/08/2019 7:57 PM EST) Glucose 256(H) 70 - 130 mg/dL 09/08/2019 8:02 PM EST [facility] Blood 09/08/2019 7:57 PM EST 09/08/2019 8:02 PM EST Jonnathan Grajeda MD POINT OF CARE TEST ORD ERABLES Final Result [facility]
[address] [place] [address], [place] [phone] * (ABNORMAL) POC Glucose Once (09/08/2019 5:19 PM EST) Glucose 325(H) 70 - 130 mg/dL 09/08/2019 5:30 PM EST [facility] Blood 09/08/2019 5:19 PM EST 09/08/2019 5:30 PM EST Jonnathan Grajeda MD POINT OF CARE TEST ORD ERABLES Final Result Performing Organization Address [facility] Co de Phone Number [facility]
[address] [place] [address], * Fiberoptic Endo (fees) (09/08/2019 3:16 PM EST) Narrative SYSTEMGENERATED, DOCUMENTATION - 09/08/2019 3:16 PM EST This procedure was auto-finalized with no dictation required. Jonnathan Grajeda MD IMG DIAGNOSTIC IMAGING ORDERABLES Final Result * (ABNORMAL) POC Glucose Once (09/08/2019 12:04 PM EST) Glucose 229(H) 70 - 130 mg/dL 09/08/2019 12:22 PM EST [facility] Blood 09/08/2019 12:0 4 PM EST 09/08/2019 12:22 PM EST Jonnathan Grajeda MD POINT OF CARE TEST ORD ERABLES Final Result Performing Organization Address [facility] de Phone Number [facility]
[address] [place] [address], [place] [phone] * CT Chest Without Contrast (09/08/2019 10:02 AM EST) Anatomical Region Laterality Modality Chest N/A Computed Tomogra phy 09/08/2019 1:14 PM EST Impressions 09/08/2019 3:52 PM EST There is a segmental or subsegmental area of consolidation in the left lower lobe with a small left pleural effusion. On the right, there is compressive right basilar atelectasis and a small right pleural effusion. D: ??09/08/2019 E: ??09/08/2019 This report was finalized on 09/08/2019 3:[address] Kevin Vergara MD. Narrative 09/08/2019 3:52 PM EST EXAMINATION: CT CHEST WO CONTRAST- INDICATION: Pleural effusion. TECHNIQUE: CT scan of the chest was performed without intravenous contrast. The radiation dose reduction device was turned on for each scan per the ALARA (As Low as Reasonably Achievable) protocol. COMPARISON: Chest x-ray dated 09/08/2019. FINDINGS: There is no axillary lymphadenopathy. There is no mediastinal or hilar adenopathy. There is no pericardial effusion. There is a segmental area of consolidation in the left lower lobe as well as minimal right basilar atelectasis with small bilateral pleural effusions. Procedure Note Juan Vergara MD - 09/08/2019 EXAMINATION: CT CHEST WO CONTRAST- INDICATION: Pleural effusion. TECHNIQUE: CT scan of the chest was performed without intravenous contrast. The radiation dose reduction device was turned on for each scan per the ALARA (As Low as Reasonably Achievable) protocol. COMPARISON: Chest x-ray dated 09/08/2019. FINDINGS: There is no axillary lymphadenopathy. There is no mediastinal or hilar adenopathy. There is no pericardial effusion. There is a segmental area of consolidation in the left lower lobe as well as minimal right basilar atelectasis with small bilateral pleural effusions. IMPRESSION: There is a segmental or subsegmental area of consolidation in the left lower lobe with a small left pleural effusion. On the right, there is compressive right basilar atelectasis and a small right pleural effusion. E: 09/08/2019 This report was finalized on 09/08/2019 3:[address] Kevin Vergara MD. Crescencio Galvan MD IMG CT ORDERABLES Final Result * BNP (09/08/2019 6:42 AM EST) proBNP 255.6 5.0 - 900.0 pg/mL 09/08/2019 7:36 AM EST [facility] Blood Venipuncture / Unknown 09/08/2019 6:42 AM EST 09/08/2019 6:59 AM EST Narrative [facility] - 09/08/2019 7:36 AM EST Among patients with dyspnea, NT-proBNP is highly sensitive for the detection of acute congestive heart failure. In addition NT-proBNP of <300 pg/ml effectively rules out acute congestive heart failure with 99% negative predictive value. us Crescencio Galvan MD LAB BLOOD ORDERABL ES Final Result [facility]
[address] [place] [address], * (ABNORMAL) Procalcitonin (09/08/2019 6:42 AM EST) Procalcitonin 0.07(L) 0.10 - 0.25 ng/mL 09/08/2019 7:43 AM EST [facility] Blood Venipuncture / Unknown 09/08/2019 6:42 AM EST 09/08/2019 6:59 AM EST Narrative [facility] - 09/08/2019 7:43 AM EST As a Marker for Sepsis (Non-Neonates): 1. <0.5 ng/mL represents a low risk of severe sepsis and/or septic shock. 1. >2 ng/mL represents a high risk of severe sepsis and/or septic shock. As a Marker for Lower Respiratory Tract Infections that require antibiotic therapy: PCT on Admission ? Antibiotic Therapy ? 6-12 Hrs later > 0.5 ?Strongly Recommended ? >0.25 - <0.5 ? Recommended 0.1 - 0.25 ? Discouraged ? Remeasure/reassess PCT <0.1 ? Strongly Discouraged ?Remeasure/reassess PCT ?? As 28 day mortality risk marker: Change in Procalcitonin Result (> 80 % or <=80 %) if Day 0 (or Day 1) and Day 4 values are available. Refer to http://www.lnhvct-dkl-zxctucipij.com/ Change in PCT <=80 % A decrease of PCT levels below or equal to 80 % defines a positive change in PCT test result representing a higher risk for 28-day all-cause mortality of patients diagnosed with severe sepsis or septic shock. Change in PCT > 80 % A decrease of PCT levels of more than 80 % defines a negative change in PCT result representing a lower risk for 28-day all-cause mortality of patients diagnosed with severe sepsis or septic shock. Crescencio Galvan MD LAB BLOOD ORDERABL ES Final Result Performing Organization Address [facility] Co de Phone Number [facility]
[address] [place] [address], * Phosphorus (09/08/2019 6:42 AM EST) Phosphorus 3.1 2.5 - 4.5 mg/dL 09/08/2019 7:47 AM EST [facility] Blood Venipuncture / Unknown 09/08/2019 6:42 AM EST 09/08/2019 6:59 AM EST Crescencio Galvan MD LAB BLOOD ORDERABL ES Final Result Performing Organization Address [facility] de Phone Number [facility]
[address] [place] [address], * Magnesium (09/08/2019 6:42 AM EST) Magnesium 2.2 1.6 - 2.4 mg/dL 09/08/2019 7:47 AM EST [facility] Blood Venipuncture / Unknown 09/08/2019 6:42 AM EST 09/08/2019 6:59 AM EST us Crescencio Galvan MD LAB BLOOD ORDERABL ES Final Result [facility]
[address] [place] [address], * (ABNORMAL) Comprehensive Metabolic Panel (09/08/2019 6:42 AM EST) Glucose 270(H) 65 - 99 mg/dL 09/08/2019 7:47 AM EST [facility] BUN 26(H) 8 - 23 mg/dL 09/08/2019 7:47 AM [facility] Creatinine 0.65 0.57 - 1.00 mg/dL 09/08/2019 7:47 AM EST [facility] Sodium 139 136 - 145 mmol/L 09/08/2019 7:47 AM EST [facility] Potassium 4.1 3.5 - 5.2 mmol/L 09/08/2019 7:47 AM EST [facility] Chloride 91(L) 98 - 107 mmol/L 09/08/2019 7:47 AM EST [facility] CO2 38.0(H) 22.0 - 29.0 mmol/L 09/08/2019 7:47 AM EST [facility] Calcium 9.2 8.6 - 10.5 mg/dL 09/08/2019 7:47 AM EST [facility] Total Protein 6.0 6.0 - 8.5 g/dL 09/08/2019 7:47 AM [facility] Albumin 3.00(L) 3.50 - 5.20 g/dL 09/08/2019 7:47 AM EST [facility] ALT (SGPT) 36(H) 1 - 33 U/L 09/08/2019 7:47 AM EST [facility] AST (SGOT) 27 1 - 32 U/L 09/08/2019 7:47 AM EST [facility] Alkaline Phosphatase 49 39 - 117 U/L 09/08/2019 7:47 AM EST [facility] Total Bilirubin 0.3 0.2 - 1.2 mg/dL 09/08/2019 7:47 AM EST [facility] eGFR Non Amer 90 >60 mL/min/1.7 3 09/08/2019 7:47 AM [facility] Globulin 3.0 gm/dL 09/08/2019 7:47 AM [facility] A/G Ratio 1.0 g/dL 09/08/2019 7:47 AM [facility] BUN/Creatinine Ratio 40.0(H) 7.0 - 25.0 09/08/2019 7:47 AM [facility] Anion Gap 10.0 5.0 - 15.0 mmol/L 09/08/2019 7:47 AM [facility] Blood Venipuncture / Unknown 09/08/2019 6:42 AM EST 09/08/2019 6:59 AM EST [facility] - 09/08/2019 7:47 AM EST GFR Normal >60 Chronic Kidney Disease <60 Kidney Failure <15 Crescencio Galvan MD LAB BLOOD ORDERABL ES Final Result Performing Organization Address City/[facility]/ZIP Co de Phone Number [facility]
[address] [place] [address], * (ABNORMAL) POC Glucose Once (09/08/2019 5:41 AM EST) Glucose 254(H) 70 - 130 mg/dL 09/08/2019 5:43 AM EST [facility] Blood 09/08/2019 5:41 AM EST 09/08/2019 5:43 AM EST Jonnathan Grajeda MD POINT OF CARE TEST ORD ERABLES Final Result Performing Organization Address City/[facility]/ZIP Co de Phone Number [facility]
[address] [place] [address], [place] [phone] * XR Chest 1 View (09/08/2019 4:46 AM EST) Anatomical Region Laterality Modality Body N/A Radiographic Nabeel ging 09/08/2019 8:48 AM EST Impressions 09/08/2019 10:53 AM EST Interval extubation and removal of the esophagogastric tube with lung volumes preserved. Decreased opacifications left lung base may represent decreased atelectasis versus airspace disease with probable small left pleural effusion remaining. D: ??09/08/2019 E: ??09/08/2019 This report was finalized on 09/08/2019 10:[address] Dejon Patrick. Narrative 09/08/2019 10:53 AM EST EXAMINATION: XR CHEST 1 VW- INDICATION: Followup. COMPARISON: Chest x-ray 09/07/2019. FINDINGS: Cardiac silhouette enlarged with blunting of the left lateral costophrenic sulcus and probable trace to small left pleural effusion and/or adjacent atelectasis decreased from prior comparison and overall prominence. Interval extubation and removal of the esophagogastric tube. Procedure Note Dejon Patrick DO - 09/08/2019 EXAMINATION: XR CHEST 1 VW- INDICATION: Followup. COMPARISON: Chest x-ray 09/07/2019. FINDINGS: Cardiac silhouette enlarged with blunting of the left lateral costophrenic sulcus and probable trace to small left pleural effusion and/or adjacent atelectasis decreased from prior comparison and overall prominence. Interval extubation and removal of the esophagogastric tube. IMPRESSION: Interval extubation and removal of the esophagogastric tube with lung volumes preserved. Decreased opacifications left lung base may represent decreased atelectasis versus airspace disease with probable small left pleural effusion remaining. E: 09/08/2019 This report was finalized on 09/08/2019 10:[address] Dejon Patrick. Crescencio GAMEZG DIAGNOSTIC NABEEL GING ORDERABLES Final Result * (ABNORMAL) CBC Auto Differential (09/08/2019 4:33 AM EST) WBC 6.29 3.40 - 10.80 10*3/mm3 09/08/2019 6:38 AM EST [facility] RBC 4.95 3.77 - 5.28 10*6/mm3 09/08/2019 6:38 AM [facility] Hemoglobin 14.9 12.0 - 15.9 g/dL 09/08/2019 6:38 AM [facility] Hematocrit 49.0(H) 34.0 - 46.6 % 09/08/2019 6:38 AM [facility] MCV 99.0(H) 79.0 - 97.0 fL 09/08/2019 6:38 AM [facility] MCH 30.1 26.6 - 33.0 pg 09/08/2019 6:38 AM [facility] MCHC 30.4(L) 31.5 - 35.7 g/dL 09/08/2019 6:38 AM [facility] RDW 13.2 12.3 - 15.4 % 09/08/2019 6:38 AM [facility] RDW-SD 48.4 37.0 - 54.0 fl 09/08/2019 6:38 AM [facility] MPV 10.5 6.0 - 12.0 fL 09/08/2019 6:38 AM [facility] Platelets 127(L) 140 - 450 10*3/mm3 09/08/2019 6:38 AM [facility] Neutrophil % 80.5(H) 42.7 - 76.0 % 09/08/2019 6:38 AM [facility] Lymphocyte % 12.6(L) 19.6 - 45.3 % 09/08/2019 6:38 AM [facility] Monocyte % 6.2 5.0 - 12.0 % 09/08/2019 6:38 AM [facility] Eosinophil % 0.0(L) 0.3 - 6.2 % 09/08/2019 6:38 AM [facility] Basophil % 0.2 0.0 - 1.5 % 09/08/2019 6:38 AM [facility] Immature Grans % 0.5 0.0 - 0.5 % 09/08/2019 6:38 AM [facility] Neutrophils, Absolute 5.07 1.70 - 7.00 10*3/mm3 09/08/2019 6:38 AM EST [facility] Lymphocytes, Absolute 0.79 0.70 - 3.10 10*3/mm3 09/08/2019 6:38 AM EST [facility] Monocytes, Absolute 0.39 0.10 - 0.90 10*3/mm3 09/08/2019 6:38 AM EST [facility] Eosinophils, Absolute 0.00 0.00 - 0.40 10*3/mm3 09/08/2019 6:38 AM [facility] Basophils, Absolute 0.01 0.00 - 0.20 10*3/mm3 09/08/2019 6:38 AM [facility] Immature Grans, Absolute 0.03 0.00 - 0.05 10*3/mm3 09/08/2019 6:38 AM [facility] nRBC 0.0 0.0 - 0.2 /100 WBC 09/08/2019 6:38 AM EST [facility] Blood Venipuncture / Unknown 09/08/2019 4:33 AM EST 09/08/2019 5:36 AM EST Crescencio Galvan MD LAB BLOOD ORDERABL ES Final Result [facility]
[address] [place] [address], * ECG 12 Lead (09/08/2019 3:55 AM EST) 09/08/2019 3:55 AM EST 09/08/2019 7:58 AM EST Narrative BH ECG - 09/08/2019 7:58 AM EST Test Reason : baseline Blood Pressure : / mmHG Vent. Rate : 063 BPM ? Atrial Rate : 063 BPM ?? P-R Int : 170 ms ?QRS Dur : 074 ms ?QT Int : 376 ms ? P-R-T Axes : -27 045 041 degrees ?? QTc Int : 384 ms Normal sinus rhythm Low voltage QRS Borderline ECG When compared with ECG of 07-SEP-2019 04:02, (Unconfirmed) No significant change was found Confirmed by MD Barriga Robert ([id number]) on 09/08/2019 7:58:33 AM Referred By: ??Yakov GALVAN ? Confirmed By:Sunny Barriga MD Procedure Note Sunny Barriga MD - 09/08/2019 Test Reason : baseline Blood Pressure : / mmHG Vent. Rate : 063 BPM Atrial Rate : 063 BPM P-R Int : 170 ms QRS Dur : 074 ms QT Int : 376 ms P-R-T Axes : -27 045 041 degrees QTc Int : 384 ms Normal sinus rhythm Low voltage QRS Borderline ECG When compared with ECG of 07-SEP-2019 04:02, (Unconfirmed) No significant change was found Confirmed by MD Barriga Robert ([id number]) on 09/08/2019 7:58:33 AM Referred By: Yakov GALVAN Confirmed By:Sunny Barrgia MD Crescencio Galvan MD ECG ORDERABLES Fi nal Result ECG * (ABNORMAL) Blood Gas, Arterial With Co-Ox (09/08/2019 3:53 AM EST) Site Left Radial 09/08/2019 3:57 AM EST [facility]ER[facility] Cesar's Test N/A 09/08/2019 3:57 AM EST [facility] pH, Arterial 7.486(H) 7.350 - 7.450 pH units 09/08/2019 3:57 AM EST [facility] Comment:83 Value above refer ence range pCO2, Arterial 57.8(H) 35.0 - 45.0 mm Hg 09/08/2019 3:57 AM EST [facility] Comment:83 Value above refer ence range pO2, Arterial 89.2 83.0 - 108.0 mm Hg 09/08/2019 3:57 AM EST [facility] HCO3, Arterial 43.6(H) 20.0 - 26.0 mmol/L 09/08/2019 3:57 AM [facility] THERAP[facility] Base Excess, Arterial 16.8(H) 0.0 - 2.0 mmol/L 09/08/2019 3:57 AM [facility] Hemoglobin, Blood Gas 15.4 14 - 18 g/dL 09/08/2019 3:57 AM [facility]ER[facility] Hematocrit, Blood Gas 47.2 % 09/08/2019 3:57 AM [facility]ER[facility] Oxyhemoglobin 96.0 94 - 99 % 09/08/2019 3:57 AM [facility]ER[facility] Methemoglobin 0.20 0.00 - 1.50 % 09/08/2019 3:57 AM [facility] Carboxyhemoglobin 1.8 0 - 2 % 020 3:57 AM [facility]ER[facility] CO2 Content 45.4(H) 22 - 33 mmol/L 09/08/2019 3:57 AM [facility] THERAP[facility] Temperature 37.0 C 09/08/2019 3:57 AM [facility]ER[facility] Barometric Pressure for Blood Gas 09/08/2019 3:57 AM [facility] Comment:N/A Modality BiPap 09/08/2019 3:57 AM [facility]ER[facility] FIO2 55 % 09/08/2019 3:57 AM [facility]ER[facility] Ventilator Mode 0 3:57 AM [facility]ER[facility] Comment:Meter: [id number] [employer] Supervisor: [id number] Note 09/08/2019 3:57 AM [facility] THERAP[facility] pH, Temp Corrected 7.486 pH Units 2019 3:57 AM [facility] THERAP[facility] pCO2, Temperature Corrected 57.8(H) 35 - 45 mm Hg 09/08/2019 3:57 AM [facility] THERAP[facility] pO2, Temperature Corrected 89.2 83 - 108 mm Hg 09/08/2019 3:57 AM [facility] THERAP[facility] Arterial Blood 09/08/2019 3: 53 AM EST 09/08/2019 3:57 AM EST Jonnathan Grajeda MD LAB BLOOD ORDERABLES F inal Result Performing Organization Address [facility]/ZIP Co de Phone Number [facility]
[address] [place] [address], * (ABNORMAL) POC Glucose Once (09/07/2019 11:13 PM EST) Glucose 278(H) 70 - 130 mg/dL 09/07/2019 11:14 PM EST [facility] Blood 09/07/2019 11:1 3 PM EST 09/07/2019 11:14 PM EST Jonnathan Grajeda MD POINT OF CARE TEST ORD ERABLES Final Result Performing Organization Address [facility] Co de Phone Number [facility]
[address] [place] [address], [place] [phone] * (ABNORMAL) POC Glucose Once (09/07/2019 6:07 PM EST) Glucose 297(H) 70 - 130 mg/dL 09/07/2019 6:09 PM EST [facility] Blood 09/07/2019 6:07 PM EST 09/07/2019 6:09 PM EST Jonnathan Grajeda MD POINT OF CARE TEST ORD ERABLES Final Result Performing Organization Address [facility] Co de Phone Number [facility]
[address] [place] [address], * (ABNORMAL) Hemoglobin A1c (09/07/2019 4:10 PM EST) Hemoglobin A1C 9.10(H) 4.80 - 5.60 % 09/07/2019 4:51 PM EST [facility] Blood Venipuncture / Unknown 09/07/2019 4:10 PM EST 09/07/2019 4:19 PM EST Narrative [facility] - 09/07/2019 4:51 PM EST Hemoglobin A1C Ranges: Increased Risk for Diabetes ??5.7% to 6.4% Diabetes ? >= 6.5% Diabetic Goal ?< 7.0% Sammie Morales DNP, [employer] LAB BLOOD ORDERABLES Fi nal Result Performing Organization Address City/[facility]/ZIP Co de Phone Number [facility]
[address] [place] [address], * (ABNORMAL) MRSA Screen, PCR - Swab, Nares (09/07/2019 2:38 PM EST) Pathologist [facility] MRSA PCR Positive(A A) Negative 09/07/2019 4:10 PM EST [facility] Swab Anterior nares swab / Unknown Collection / Unknown 09/07/2019 2:38 PM EST 09/07/2019 3:00 PM EST Crescencio Galvan MD MICROBIOLOGY - GEN ERAL ORDERABLES Final Result Performing Organization Address City/[facility]/ZIP Co de Phone Number [facility]
[address] [place] [address], * (ABNORMAL) Respiratory Panel, PCR - Swab, Nasopharynx (09/07/2019 2:37 PM EST) [facility] ADENOVIRUS, PCR Not Detected Not Detected 09/07/2019 4:04 PM EST [facility] Coronavirus 229E Not Detected Not Detected 09/07/2019 4:04 PM EST [facility] Coronavirus HKU1 Not Detected Not Detected 09/07/2019 4:04 PM EST [facility] Coronavirus NL63 Not Detected Not Detected 09/07/2019 4:04 PM [facility] Coronavirus OC43 Not Detected Not Detected 09/07/2019 4:04 PM [facility] Human Metapneumovirus Not Detected Not Detected 09/07/2019 4:04 PM [facility] Human Rhinovirus/Enterov irus Not Detected Not Detected 09/07/2019 4:04 PM [facility] Influenza B PCR Not Detected Not Detected 09/07/2019 4:04 PM [facility] Parainfluenza Virus 1 Detected(A) Not Detected 09/07/2019 4:04 PM [facility] Parainfluenza Virus 2 Not Detected Not Detected 09/07/2019 4:04 PM [facility] Parainfluenza Virus 3 Not Detected Not Detected 09/07/2019 4:04 PM [facility] Parainfluenza Virus 4 Not Detected Not Detected 09/07/2019 4:04 PM [facility] Bordetella pertussis pcr Not Detected Not Detected 09/07/2019 4:04 PM [facility] Influenza A H1 2009 PCR Not Detected Not Detected 09/07/2019 4:04 PM [facility] Chlamydophila pneumoniae PCR Not Detected Not Detected 09/07/2019 4:04 PM [facility] Mycoplasma pneumo by PCR Not Detected Not Detected 09/07/2019 4:04 PM [facility] Influenza A PCR Not Detected Not Detected 09/07/2019 4:04 PM [facility] Influenza A H3 Not Detected Not Detected 09/07/2019 4:04 PM [facility] Influenza A H1 Not Detected Not Detected 09/07/2019 4:04 PM [facility] RSV, PCR Not Detected Not Detected 09/07/2019 4:04 PM [facility] Bordetella parapertussis PCR Not Detected Not Detected 09/07/2019 4:04 PM [facility] Swab Nasopharyngeal structure / Unknown Collection / Unknown 09/07/2019 2:37 PM EST 09/07/2019 3:03 PM EST Jonnathan Grajeda MD MICROBIOLOGY - GENERAL ORDERABLES Final Result Performing Organization Address City/[facility]/ZIP Co de Phone Number [facility]
[address] [place] [address], * (ABNORMAL) POC Glucose Once (09/07/2019 12:37 PM EST) Glucose 303(H) 70 - 130 mg/dL 09/07/2019 12:55 PM EST [facility] Blood 09/07/2019 12:3 7 PM EST 09/07/2019 12:55 PM EST Jonnathan Grajeda MD POINT OF CARE TEST ORD ERABLES Final Result Performing Organization Address [facility] Co de Phone Number [facility]
[address] [place] [address], * (ABNORMAL) Comprehensive Metabolic Panel (09/07/2019 10:27 AM EST) Glucose 346(H) 65 - 99 mg/dL 09/07/2019 11:12 AM EST [facility] BUN 25(H) 8 - 23 mg/dL 09/07/2019 11:12 AM [facility] Creatinine 0.67 0.57 - 1.00 mg/dL 09/07/2019 11:12 AM EST [facility] Sodium 139 136 - 145 mmol/L 09/07/2019 11:12 AM EST [facility] Potassium 4.2 3.5 - 5.2 mmol/L 09/07/2019 11:12 AM EST [facility] Chloride 93(L) 98 - 107 mmol/L 09/07/2019 11:12 AM [facility] CO2 34.0(H) 22.0 - 29.0 mmol/L 09/07/2019 11:12 AM [facility] Calcium 9.1 8.6 - 10.5 mg/dL 09/07/2019 11:12 AM [facility] Total Protein 6.2 6.0 - 8.5 g/dL 09/07/2019 11:12 AM [facility] Albumin 3.20(L) 3.50 - 5.20 g/dL 09/07/2019 11:12 AM [facility] ALT (SGPT) 33 1 - 33 U/L 09/07/2019 11:12 AM [facility] AST (SGOT) 37(H) 1 - 32 U/L 09/07/2019 11:12 AM [facility] Alkaline Phosphatase 52 39 - 117 U/L 09/07/2019 11:12 AM [facility] Total Bilirubin 0.2 0.2 - 1.2 mg/dL 09/07/2019 11:12 AM [facility] eGFR Non Amer 87 >60 mL/min/1.7 3 09/07/2019 11:12 AM [facility] Globulin 3.0 gm/dL 09/07/2019 11:12 AM [facility] A/G Ratio 1.1 g/dL 09/07/2019 11:12 AM [facility] BUN/Creatinine Ratio 37.3(H) 7.0 - 25.0 09/07/2019 11:12 AM [facility] Anion Gap 12.0 5.0 - 15.0 mmol/L 09/07/2019 11:12 AM [facility] Blood Venipuncture / Unknown 09/07/2019 10:27 AM EST 09/07/2019 10:51 AM EST [facility] - 09/07/2019 11:12 AM EST GFR Normal >60 Chronic Kidney Disease <60 Kidney Failure <15 Crescencio Galvan MD LAB BLOOD ORDERABL ES Final Result [facility]
[address] [place] [address], * (ABNORMAL) Procalcitonin (09/07/2019 10:27 AM EST) [facility] Procalcitonin 0.04(L) 0.10 - 0.25 ng/mL 09/07/2019 11:21 AM EST [facility] Blood Venipuncture / Unknown 09/07/2019 10:27 AM EST 09/07/2019 10:51 AM EST Narrative [facility] - 09/07/2019 11:21 AM EST As a Marker for Sepsis (Non-Neonates): 1. <0.5 ng/mL represents a low risk of severe sepsis and/or septic shock. 1. >2 ng/mL represents a high risk of severe sepsis and/or septic shock. As a Marker for Lower Respiratory Tract Infections that require antibiotic therapy: PCT on Admission ? Antibiotic Therapy ? 6-12 Hrs later > 0.5 ?Strongly Recommended ? >0.25 - <0.5 ? Recommended 0.1 - 0.25 ? Discouraged ? Remeasure/reassess PCT <0.1 ? Strongly Discouraged ?Remeasure/reassess PCT ?? As 28 day mortality risk marker: Change in Procalcitonin Result (> 80 % or <=80 %) if Day 0 (or Day 1) and Day 4 values are available. Refer to http://www.uceibw-zeg-bkltatmtmk.com/ Change in PCT <=80 % A decrease of PCT levels below or equal to 80 % defines a positive change in PCT test result representing a higher risk for 28-day all-cause mortality of patients diagnosed with severe sepsis or septic shock. Change in PCT > 80 % A decrease of PCT levels of more than 80 % defines a negative change in PCT result representing a lower risk for 28-day all-cause mortality of patients diagnosed with severe sepsis or septic shock. Heriberto Howard IV, PharmD LAB BLOOD ORDERABLE S Final Result Performing Organization Address [facility] de Phone Number [facility]
[address] [place] [address], * Phosphorus (09/07/2019 10:27 AM EST) Phosphorus 3.4 2.5 - 4.5 mg/dL 09/07/2019 11:15 AM EST [facility] Blood Venipuncture / Unknown 09/07/2019 10:27 AM EST 09/07/2019 10:51 AM EST Sammie Morales DNP, [employer] LAB BLOOD ORDERABLES Fi nal Result Performing Organization Address [facility] Phone Number [facility]
[address] [place] [address], * Magnesium (09/07/2019 10:27 AM EST) Magnesium 2.1 1.6 - 2.4 mg/dL 09/07/2019 11:15 AM EST [facility] Blood Venipuncture / Unknown 09/07/2019 10:27 AM EST 09/07/2019 10:51 AM EST Sammie Morales DNP, APRN LAB BLOOD ORDERABLES Fi nal Result Performing Organization Address [facility] de Phone Number [facility]
[address] [place] [address], * TSH (09/07/2019 10:27 AM EST) TSH 1.000 0.270 - 4.200 uIU/mL 09/07/2019 11:19 AM EST [facility] Blood Venipuncture / Unknown 09/07/2019 10:27 AM EST 09/07/2019 10:51 AM EST us Sammie Morales DNP, [employer] LAB BLOOD ORDERABLES Fi nal Result Performing Organization Address [facility] de Phone Number [facility]
[address] [place] [address], * (ABNORMAL) T4, Free (09/07/2019 10:27 AM EST) Free T4 0.66(L) 0.93 - 1.70 ng/dL 09/07/2019 11:21 AM EST [facility] Blood Venipuncture / Unknown 09/07/2019 10:27 AM EST 09/07/2019 10:51 AM EST Sammie Morales DNP, [employer] LAB BLOOD ORDERABLES Fi nal Result Performing Organization Address [facility] Phone Number [facility]
[address] [place] [address], * Scan Slide (09/07/2019 8:45 AM EST) Pathologist [facility] RBC Morphology Normal Normal 09/07/2019 9:46 AM EST [facility] WBC Morphology Normal Normal 09/07/2019 9:46 AM EST [facility] Platelet Morphology Normal Normal 09/07/2019 9:46 AM EST [facility] Blood Venipuncture / Unknown 09/07/2019 8:45 AM EST 09/07/2019 8:53 AM EST aSmmie Morales DNP, [employer] LAB BLOOD ORDERABLES Fi nal Result Performing Organization Address [facility] [facility] Co de Phone Number [facility]
[address] [place] [address], * Lactic Acid, Plasma (09/07/2019 8:45 AM EST) Lactate 1.3 0.5 - 2.0 mmol/L 09/07/2019 9:15 AM EST [facility] Comment:Falsely depressed re sults may occur on samples drawn from patients receiving N-Acetylcysteine (NAC) or Metamizole. Blood Venipuncture / Unknown 09/07/2019 8:45 AM EST 09/07/2019 8:54 AM EST Sammie Morales DNP, [employer] LAB BLOOD ORDERABLES Fi nal Result Performing Organization Address City/[facility]/ZIP Co de Phone Number [facility]
[address] [place] [address], * Calcium, Ionized (09/07/2019 8:45 AM EST) Ionized Calcium 1.21 1.12 - 1.32 mmol/L 09/07/2019 9:18 AM EST [facility] Blood Venipuncture / Unknown 09/07/2019 8:45 AM EST 09/07/2019 8:54 AM EST Sammie Morales DNP, [employer] LAB BLOOD ORDERABLES Fi nal Result Performing Organization Address [facility] de Phone Number [facility]
[address] [place] [address], * (ABNORMAL) CBC Auto Differential (09/07/2019 8:45 AM EST) WBC 7.96 3.40 - 10.80 10*3/mm3 09/07/2019 9:46 AM EST [facility] RBC 4.81 3.77 - 5.28 10*6/mm3 09/07/2019 9:46 AM [facility] Hemoglobin 14.6 12.0 - 15.9 g/dL 09/07/2019 9:46 AM [facility] Hematocrit 47.3(H) 34.0 - 46.6 % 09/07/2019 9:46 AM [facility] MCV 98.3(H) 79.0 - 97.0 fL 09/07/2019 9:46 AM [facility] MCH 30.4 26.6 - 33.0 pg 09/07/2019 9:46 AM [facility] MCHC 30.9(L) 31.5 - 35.7 g/dL 09/07/2019 9:46 AM [facility] RDW 13.6 12.3 - 15.4 % 09/07/2019 9:46 AM [facility] RDW-SD 50.0 37.0 - 54.0 fl 09/07/2019 9:46 AM [facility] MPV 10.6 6.0 - 12.0 fL 09/07/2019 9:46 AM [facility] Platelets 113(L) 140 - 450 10*3/mm3 09/07/2019 9:46 AM [facility] Neutrophil % 84.4(H) 42.7 - 76.0 % 09/07/2019 9:46 AM [facility] Lymphocyte % 9.3(L) 19.6 - 45.3 % 09/07/2019 9:46 AM [facility] Monocyte % 4.1(L) 5.0 - 12.0 % 09/07/2019 9:46 AM [facility] Eosinophil % 1.9 0.3 - 6.2 % 09/07/2019 9:46 AM [facility] Basophil % 0.0 0.0 - 1.5 % 09/07/2019 9:46 AM [facility] Immature Grans % 0.3 0.0 - 0.5 % 09/07/2019 9:46 AM [facility] Neutrophils, Absolute 6.72 1.70 - 7.00 10*3/mm3 09/07/2019 9:46 AM [facility] Lymphocytes, Absolute 0.74 0.70 - 3.10 10*3/mm3 09/07/2019 9:46 AM [facility] Monocytes, Absolute 0.33 0.10 - 0.90 10*3/mm3 09/07/2019 9:46 AM [facility] Eosinophils, Absolute 0.15 0.00 - 0.40 10*3/mm3 09/07/2019 9:46 AM EST [facility] Basophils, Absolute 0.00 0.00 - 0.20 10*3/mm3 09/07/2019 9:46 AM EST [facility] Immature Grans, Absolute 0.02 0.00 - 0.05 10*3/mm3 09/07/2019 9:46 AM EST [facility] nRBC 0.0 0.0 - 0.2 /100 WBC 09/07/2019 9:46 AM EST [facility] Blood Venipuncture / Unknown 09/07/2019 8:45 AM EST 09/07/2019 8:53 AM EST Narrative [facility] - 09/07/2019 9:46 AM EST Appended report. These results have been appended to a previously verified report. Sammie Morales DNP, [employer] LAB BLOOD ORDERABLES Fi nal Result [facility]
[address] [place] [address], * Blood Culture - Blood, Hand, Left (09/07/2019 8:44 AM EST) Blood Culture No growth at 5 days 09/12/2019 9:01 AM EST [facility] Blood Structure of left hand / Unknown Venipuncture / Unknown 09/07/2019 8:44 AM EST 09/07/2019 8:58 AM EST Sammie Morales DNP, [employer] MICROBIOLOGY - GENERAL ORDERABLES Final Result [facility]
[address] [place] [address], * Blood Culture - Blood, Hand, Right (09/07/2019 8:38 AM EST) Blood Culture No growth at 5 days 09/12/2019 9:01 AM EST [facility] Blood Structure of right hand / Unknown Venipuncture / Unknown 09/07/2019 8:38 AM EST 09/07/2019 8:58 AM EST Sammie Morales DNP, [employer] MICROBIOLOGY - GENERAL ORDERABLES Final Result Performing Organization Address [facility] Co de Phone Number [facility]
[address] [place] [address], * (ABNORMAL) POC Glucose Once (09/07/2019 5:50 AM EST) Glucose 282(H) 70 - 130 mg/dL 09/07/2019 5:53 AM EST [facility] Blood 09/07/2019 5:50 AM EST 09/07/2019 5:52 AM EST Jonnathan Grajeda MD POINT OF CARE TEST ORD ERABLES Final Result Performing Organization Address [facility] Co de Phone Number [facility]
[address] [place] [address], * (ABNORMAL) Blood Gas, Arterial With Co-Ox (09/07/2019 4:16 AM EST) Site Right Radial 09/07/2019 4:18 AM EST [facility] Cesar's Test N/A 09/07/2019 4:18 AM EST [facility] pH, Arterial 7.408 7.350 - 7.450 pH units 09/07/2019 4:18 AM EST [facility] pCO2, Arterial 61.1(H) 35.0 - 45.0 mm Hg 09/07/2019 4:18 AM EST [facility] Comment:83 Value above refer ence range pO2, Arterial 118.0(H) 83.0 - 108.0 mm Hg 09/07/2019 4:18 AM EST [facility] Comment:83 Value above refer ence range HCO3, Arterial 38.5(H) 20.0 - 26.0 mmol/L 09/07/2019 4:18 AM [facility] Base Excess, Arterial 11.1(H) 0.0 - 2.0 mmol/L 09/07/2019 4:18 AM [facility] Hemoglobin, Blood Gas 14.5 14 - 18 g/dL 09/07/2019 4:18 AM [facility] Hematocrit, Blood Gas 44.4 % 09/07/2019 4:18 AM [facility] Oxyhemoglobin 99.2(H) 94 - 99 % 09/07/2019 4:18 AM [facility] Comment:83 Value above refer ence range Methemoglobin 09/07/2019 4:18 AM [facility] Comment:94 Value below repor table range < _0.2 Carboxyhemoglobin 1.5 0 - 2 % 020 4:18 AM [facility] CO2 Content 40.4(H) 22 - 33 mmol/L 09/07/2019 4:18 AM [facility] Temperature 37.0 C 09/07/2019 4:18 AM [facility] Barometric Pressure for Blood Gas 09/07/2019 4:18 AM [facility] Comment:N/A Modality Ventilator 09/07/2019 4:18 AM [facility]ER[facility] FIO2 70 % 09/07/2019 4:18 AM [facility]ER[facility] Ventilator Mode 0 4:18 AM [facility] Comment:Meter: [id number] [employer] Supervisor: [id number] Note 09/07/2019 4:18 AM [facility] THERAP[facility] pH, Temp Corrected 7.408 pH Units 2019 4:18 AM [facility] THERAP[facility] pCO2, Temperature Corrected 61.1(H) 35 - 45 mm Hg 09/07/2019 4:18 AM [facility] THER[facility] pO2, Temperature Corrected 118(H) 83 - 108 mm Hg 09/07/2019 4:18 AM [facility] Arterial Blood 09/07/2019 4: 16 AM EST 09/07/2019 4:18 AM EST us Jonnathan Grajeda MD LAB BLOOD ORDERABLES F inal Result [facility] THER[facility]
[address] [place] [address], * ECG 12 Lead (09/07/2019 4:02 AM EST) 09/07/2019 4:02 AM EST 09/08/2019 7:55 AM EST Narrative [facility] ECG - 09/08/2019 7:55 AM EST Test Reason : Hx A. fib Blood Pressure : / mmHG Vent. Rate : 052 BPM ? Atrial Rate : 052 BPM ?? P-R Int : 176 ms ?QRS Dur : 072 ms ?QT Int : 404 ms ? P-R-T Axes : 006 047 047 degrees ?? QTc Int : 375 ms Sinus bradycardia Low voltage QRS Cannot rule out Anterior infarct , age undetermined Abnormal ECG No previous ECGs available Confirmed by MD Barriga Robert ([id number]) on 09/08/2019 7:55:05 AM Referred By: ??CLAUDETTE ? Confirmed By:Sunny Barriga MD Procedure Note Sunny Barriga MD - 09/08/2019 Test Reason : Hx A. fib Blood Pressure : / mmHG Vent. Rate : 052 BPM Atrial Rate : 052 BPM P-R Int : 176 ms QRS Dur : 072 ms QT Int : 404 ms P-R-T Axes : 006 047 047 degrees QTc Int : 375 ms Sinus bradycardia Low voltage QRS Cannot rule out Anterior infarct , age undetermined Abnormal ECG No previous ECGs available Confirmed by MD Barriga Robert ([id number]) on 09/08/2019 7:55:05 AM Referred By: CLAUDETTE Confirmed By:Sunny Barriga MD us Sammie N Morales DNP, [employer] ECG ORDERABLES Final R esult [facility] ECG * XR Chest 1 View (09/07/2019 3:15 AM EST) Anatomical Region Laterality Modality Body N/A Radiographic Nabeel ging 09/07/2019 3:39 AM EST Impressions 09/07/2019 3:39 AM EST ETT and NGT in good position as noted above. Signer Name: Gabino Almaguer MD Signed: 09/07/2019 3:39 AM Workstation Name: [facility] [place] Narrative 09/07/2019 3:39 AM EST CHEST X-RAY, 09/07/2019 ?? HISTORY: ?? Endotracheal tube placement. ?? TECHNIQUE: AP portable semiupright chest x-ray. ?? FINDINGS: Endotracheal tube is in good position with tip in the mid thoracic trachea about 3.7 cm above the everton. NG tube appears well positioned with tip in the lower stomach. Cardiomegaly. Pulmonary vascularity is normal. Infiltrate or atelectasis in the dependent lung bases. Procedure Note Gabino Almaguer MD - 09/07/2019 CHEST X-RAY, 09/07/2019 HISTORY: Endotracheal tube placement. TECHNIQUE: AP portable semiupright chest x-ray. FINDINGS: Endotracheal tube is in good position with tip in the mid thoracic tracheaabout 3.7 cm above the everton. NG tube appears well positioned with tip in the lower stomach. Cardiomegaly. Pulmonary vascularity is normal. Infiltrate or atelectasisin the dependent lung bases. IMPRESSION: ETT and NGT in good position as noted above. Signer Name: Gabino Almaguer MD Signed: 09/07/2019 3:39 AM Workstation Name: [facility] [place] us Jonnathan Grajeda MD IMG DIAGNOSTIC IMAGING ORDERABLES Final Result * XR Abdomen KUB (09/07/2019 3:15 AM EST) Anatomical Region Laterality Modality Body, Abdomen N/A Radiographic Nabeel ging 09/07/2019 3:40 AM EST Impressions 09/07/2019 3:40 AM EST NG tube in good position in the distal stomach. Signer Name: Gabino Almaguer MD Signed: 09/07/2019 3:40 AM Workstation Name: [facility] Narrative 09/07/2019 3:40 AM EST ABDOMEN, 09/07/2019 ?? HISTORY: ?? NG tube placement ?? TECHNIQUE: Single AP portable radiograph of the upper abdomen. ?? FINDINGS: NG tube in good position with tip in the distal portion of the stomach. No visible gastric distention. Procedure Note Gabino Almaguer MD - 09/07/2019 ABDOMEN, 09/07/2019 HISTORY: NG tube placement TECHNIQUE: Single AP portable radiograph of the upper abdomen. FINDINGS: NG tube in good position with tip in the distal portion of the stomach. Novisible gastric distention. IMPRESSION: NG tube in good position in the distal stomach. Signer Name: Gabino Almaguer MD Signed: 09/07/2019 3:40 AM Workstation Name: [facility]LA[facility] Jonnathan Grajeda MD IMG DIAGNOSTIC IMAGING ORDERABLES Final Result * Urine Culture - Urine, Urine, Catheter (09/07/2019 2:59 AM EST) Urine Culture No growth RONI 09/08/2019 9:07 AM EST [facility] Urine Urine specimen obtained via straight catheter / Unknown Collection / Unknown 09/07/2019 2:59 AM EST 09/07/2019 4:36 AM EST Jonnathan Grajeda MD MICROBIOLOGY - GENERAL ORDERABLES Final Result [facility]
[address] [place] [address], [place] [phone] * (ABNORMAL) Urinalysis, Microscopic Only - Urine, Catheter (09/07/2019 2:59 AM EST) RBC, UA Too Numerous to Count(A) None Seen, 0-2 /HPF 09/07/2019 5:01 AM [facility] WBC, UA 6-12(A) None Seen, 0-2 /HPF 09/07/2019 5:01 AM [facility] Bacteria, UA None Seen None Seen, Trace /HPF 09/07/2019 5:01 AM EST [facility] Squamous Epithelial Cells, UA 3-6(A) None Seen, 0-2 /HPF 09/07/2019 5:01 AM [facility] Transitional Epithelial Cells, UA 0-2 0 - 2 /HPF 09/07/2019 5:01 AM [facility] Renal Epithelial Cells, UA 0-2 0 - 2 /HPF 09/07/2019 5:01 AM [facility] Hyaline Casts, UA None Seen 0 - 6 /LPF 09/07/2019 5:01 AM [facility] Methodology Manual Light Microscopy 09/07/2019 5:01 AM [facility] Urine Urine specimen obtained via straight catheter / Unknown Collection / Unknown 09/07/2019 2:59 AM EST 09/07/2019 4:36 AM EST Jonnathan Grajeda MD URINE ORDERABLES Final Result [facility]
[address] [place] [address], * (ABNORMAL) Urinalysis With Culture If Indicated - Urine, Catheter (09/07/2019 2:59 AM EST) Color, UA Yellow Yellow, Straw 09/07/2019 5:01 AM [facility] Appearance, UA Clear Clear 09/07/2019 5:01 AM [facility] pH, UA 6.0 5.0 - 8.0 09/07/2019 5:01 AM [facility] Specific [place], UA 1.039(H) 1.001 - 1.030 09/07/2019 5:01 AM [facility] Glucose, UA >=1000 mg/dL (3+)(A) Negative 09/07/2019 5:01 AM [facility] Ketones, UA Trace(A) Negative 09/07/2019 5:01 AM [facility] Bilirubin, UA Negative Negative 09/07/2019 5:01 AM [facility] Blood, UA Moderate (2+)(A) Negative 09/07/2019 5:01 AM [facility] Protein, UA 30 mg/dL (1+)(A) Negative 09/07/2019 5:01 AM [facility] Leuk Esterase, UA Negative Negative 09/07/2019 5:01 AM [facility] Nitrite, UA Negative Negative 09/07/2019 5:01 AM [facility] Urobilinogen, UA 1.0 E.U./dL 0.2 - 1.0 E.U./dL 09/07/2019 5:01 AM [facility] Urine Urine specimen obtained via straight catheter / Unknown Collection / Unknown 09/07/2019 2:59 AM EST 09/07/2019 4:36 AM EST Jonnathan Grajeda MD URINE ORDERABLES Final Result [facility]
[address] [place] [address], * SCANNED - TELEMETRY (09/07/2019) Anatomical Region Laterality Modality Other [facility] Onbase ECG ORDERABLES Final Result * SCANNED - TELEMETRY (09/07/2019) Anatomical Region Laterality Modality Other [facility] Onbase ECG ORDERABLES Final Result * SCANNED - TELEMETRY (09/07/2019) Anatomical Region Laterality Modality Other [facility] Onbase ECG ORDERABLES Final Result * SCANNED - TELEMETRY (09/07/2019) Anatomical Region Laterality Modality Other [facility] ECG ORDERABLES Final Result * SCANNED - TELEMETRY (09/07/2019) Anatomical Region Laterality Modality Other [facility] ECG ORDERABLES Final Result * SCANNED - TELEMETRY (09/07/2019) Anatomical Region Laterality Modality Other [facility] ECG ORDERABLES Final Result * SCANNED - TELEMETRY (09/07/2019) Anatomical Region Laterality Modality Other [facility] ECG ORDERABLES Final Result * SCANNED - TELEMETRY (09/07/2019) Anatomical Region Laterality Modality Other [facility] ECG ORDERABLES Final Result * SCANNED - TELEMETRY (09/07/2019) Anatomical Region Laterality Modality Other [facility] On[facility] ECG ORDERABLES Final Result * SCANNED - TELEMETRY (09/07/2019) Anatomical Region Laterality Modality Other [facility] ECG ORDERABLES Final Result * SCANNED - TELEMETRY (09/07/2019) Anatomical Region Laterality Modality Other Charanjit Najera MD ECG ORDERABLES Final R esult documented in this encounter Visit Diagnoses Diagnosis Acute on chronic mixed hypoxemic/hypercarbic respiratory failure acquiring ventilatory support 09/04/2019 ([facility] Primary Impaired mobility and ADLs Pharyngeal dysphagia Dysphagia, pharyngeal phase T2DM GERD Dyslipidemia on statin Other and unspecified hyperlipidemia Obesity hypoventilation syndrome Essential hypertension Unspecified essential hypertension DELL on CPAP Hx of Henoch-Schonlein 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 Questionable acute exacerbation this admission Unspecified asthma, with exacerbation Mild LLL CAP. MRSA PCR positive on nasal swab and respiratory panel positive for parainfluenza virus Pneumonia, organism unspecified E. coli UTI 09/04/2019 documented in this encounter Administered Medications Inactive Administered Medications - up to 3 most recent administrations Medication Order MAR Action Action Date Dose Rate Site aspirin EC tablet 81 mg 81 mg, Oral, Daily, First dose on Thu09/07/19 at 1115, Herbal/drug interaction: Avoid use with ginkgo biloba. Do not crush or chew. Do not exceed 4 grams of aspirin in a 24 hr period. If given for pain, use the following pain scale: Mild Pain = Pain Score of 1-3, CPOT 1-2 Moderate Pain = Pain Score of 4-6, CPOT 3-4 Severe Pain = Pain Score of 7-10, CPOT 5-8 Given 09/15/2019 9:48 AM EST 81 mg Given 09/14/2019 9:35 AM EST 81 mg Given 09/13/2019 9:07 AM EST 81 mg azelastine (ASTELIN) nasal spray 2 spray 2 spray, Each Nare, 2 Times Daily, First dose on Thu09/07/19 at 1115 Given 09/15/2019 9:47 AM EST 2 sprays Given 09/14/2019 9:36 AM EST 2 sprays Given 09/13/2019 9:08 AM EST 2 sprays AZITHROMYCIN 500 MG/250 ML 0.9% NS IVPB (vial-mate) 500 mg, Intravenous, Administer over 60 Minutes, Every 24 Hours, First dose on Thu09/07/19 at 0500, For 7 days, Indications: PneumoniaIndications:Pneumonia New Bag 09/11/2019 5:56 AM EST 500 mg New Bag 09/10/2019 5:21 AM EST 500 mg New Bag 09/09/2019 6:07 AM EST 500 mg budesonide (PULMICORT) nebulizer solution 0.5 mg 0.5 mg, Nebulization, 2 Times Daily - RT, First dose on Thu09/07/19 at 1100, Do not shake. Protect from light. Given 09/15/2019 6:59 AM EST 0.5 mg Given 09/14/2019 7:53 PM EST 0.5 mg Given 09/14/2019 6:47 AM EST 0.5 mg calcium carbonate EX (TUMS EX) chewable tablet 750 mg 750 mg, Oral, 3 Times Daily PRN, Indigestion, Heartburn, Starting on 09/10/20 at 2057, Take with food cefTRIAXone (ROCEPHIN) 1 g/100 mL 0.9% NS (MBP) 1 g, Intravenous, Administer over 30 Minutes, Every 24 Hours, First dose on Thu09/10/19 at 0900, For 4 days, Caution: Look alike/sound alike drug alert. Break seal and mix to activiate vial before use., Indications: PneumoniaIndications:Pneumonia New Bag 09/13/2019 9:07 AM EST 1 g New Bag 09/12/2019 8:42 AM EST 1 g New Bag 09/11/2019 8:00 AM EST 1 g cetirizine (zyrTEC) tablet 10 mg 10 mg, Oral, Daily, First dose on Thu09/07/19 at 1115 Given 09/15/2019 9:49 AM EST 10 mg Given 09/14/2019 9:35 AM EST 10 mg Given 09/13/2019 9:07 AM EST 10 mg chlorhexidine (PERIDEX) 0.12 % solution 15 mL 15 mL, Mouth/Throat, Every 12 Hours Scheduled, First dose on Thu09/07/19 at 0900, {BKC} Do not swallow. Given 09/07/2019 9:02 AM EST 15 mL dextrose (D50W) 25 g/ 50mL Intravenous Solution 25 g 25 g, Intravenous, Every 15 Minutes PRN, Low Blood Sugar, Blood Sugar Less Than 70, Starting on Thu09/07/19 at 0302, Blood sugar less than 70; patient has IV access - Unresponsive, NPO or Unable To Safely Swallow dextrose (GLUTOSE) oral gel 15 g 15 g, Oral, Every 15 Minutes PRN, Low Blood Sugar, Blood sugar less than 70, Starting on Thu09/07/19 at 0302, BS<70, Patient Alert, Is not NPO, Can safely swallow. doxycycline (MONODOX) capsule 100 mg 100 mg, Oral, Every 12 Hours Scheduled, First dose on Thu09/10/19 at 1400, For 7 doses, Take with food if GI upset occurs. Avoid taking antacids, iron, or dairy products within 2 hours of dose., Indications: PneumoniaIndications:Pneumonia Given 09/13/2019 4:33 PM EST 100 mg Given 09/13/2019 5:05 AM EST 100 mg Given 09/12/2019 3:26 PM EST 100 mg ertapenem (INVanz) 1 g/100 mL 0.9% NS VTB (mbp) 1 g, Intravenous, Administer over 30 Minutes, Every 24 Hours, First dose on Thu09/07/19 at 0430, For 7 days, Caution: Look alike/sound alike drug alert., Indications: Urinary Tract InfectionIndications:Urinary Tract Infection New Bag 09/09/2019 5:18 AM EST 1 g New Bag 09/08/2019 6:02 AM EST 1 g New Bag 09/07/2019 4:47 AM EST 1 g fluticasone (FLONASE) 50 MCG/ACT nasal spray 2 spray 2 spray, Nasal, Daily, First dose on Thu09/07/19 at 1115 Given 09/15/2019 9:47 AM EST 2 sprays Given 09/14/2019 9:36 AM EST 2 sprays Given 09/13/2019 9:09 AM EST 2 sprays furosemide (LASIX) injection 40 mg 40 mg, Intravenous, Daily, First dose on Thu09/07/19 at 0900 Given 09/07/2019 9:03 AM EST 40 mg furosemide (LASIX) injection 40 mg 40 mg, Intravenous, Every 6 Hours, First dose on Thu09/07/19 at 1300, For 2 doses Given 09/07/2019 8:45 PM EST 40 mg Given 09/07/2019 2:52 PM EST 40 mg furosemide (LASIX) injection 40 mg 40 mg, Intravenous, Every 8 Hours Scheduled, First dose (after last modification) on Jeanette 09/08/19 at 0930, For 3 doses Given 09/08/2019 11:06 PM EST 40 mg Given 09/08/2019 3:02 PM EST 40 mg Given 09/08/2019 10:32 AM EST 40 mg furosemide (LASIX) injection 40 mg 40 mg, Intravenous, 2 Times Daily, First dose on Thu09/09/19 at 1000, For 2 doses Given 09/09/2019 8:32 PM EST 40 mg Given 09/09/2019 10:04 AM EST 40 mg furosemide (LASIX) tablet 40 mg 40 mg, Oral, Once, On 09/10/19 at 1400, For 1 dose Given 09/10/2019 3:52 PM EST 40 mg furosemide (LASIX) tablet 40 mg 40 mg, Oral, Daily, First dose on Thu09/11/19 at 0900 Given 09/15/2019 9:49 AM EST 40 mg Given 09/14/2019 9:35 AM EST 40 mg Given 09/13/2019 9:06 AM EST 40 mg glucagon (human recombinant) (GLUCAGEN DIAGNOSTIC) injection 1 mg 1 mg, Subcutaneous, Every 15 Minutes PRN, Low Blood Sugar, Blood Glucose Less Than 70, Starting on Thu09/07/19 at 0302, Blood Glucose Less Than 70 - Patient Without IV Access - Unresponsive, NPO or Unable To Safely Swallow heparin (porcine) 5000 UNIT/ML injection 5,000 Units 5,000 Units, Subcutaneous, Every 8 Hours Scheduled, First dose on Thu09/07/19 at 0600, Indications: VTE ProphylaxisIndications:VTE Prophylaxis Given 09/07/2019 6:30 AM EST 5,000 Units Left Lower Abdomen insulin detemir (LEVEMIR) injection 10 Units 10 Units, Subcutaneous, Daily, First dose on Thu09/08/19 at 0930, {BKC} Given 09/09/2019 8:02 AM EST 10 Units Right Upper Abdomen Given 09/08/2019 10:36 AM EST 10 Units R ight Upper Abdomen insulin detemir (LEVEMIR) injection 10 Units 10 Units, Subcutaneous, Once, On Thu09/09/19 at 1000, For 1 dose, {BKC} Given 09/09/2019 11:48 AM EST 10 Units Right Upper Abdomen insulin detemir (LEVEMIR) injection 15 Units 15 Units, Subcutaneous, Every 12 Hours Scheduled, First dose (after last modification) on Thu09/10/19 at 2100, {BKC} Given 09/13/2019 9:12 AM EST 15 Units Right Arm Given 09/12/2019 9:37 PM EST 15 Units Le ft Lower Abdomen Given 09/12/2019 8:39 AM EST 15 Units Ri ght Arm insulin detemir (LEVEMIR) injection 17 Units 17 Units, Subcutaneous, Every 12 Hours Scheduled, First dose (after last modification) on Thu09/13/19 at 2130, {BKC} Given 09/15/2019 9:52 AM EST 17 Units Left Arm Given 09/14/2019 9:00 PM EST 17 Units Ri ght Arm Given 09/14/2019 9:29 AM EST 17 Units Le ft Arm insulin detemir (LEVEMIR) injection 20 Units 20 Units, Subcutaneous, Every Morning, First dose on Thu09/10/19 at 0700, {BKC} Given 09/10/2019 6:09 AM EST 20 Units Left Lower Abdomen insulin lispro (humaLOG) injection 0-14 Units 0-14 Units, Subcutaneous, 4 Times Daily With Meals & Nightly, First dose on Thu09/08/19 at 1800, Correction - Moderate-High Dose. 60-80 units/day total insulin dose or uses insulin at home Blood glucose 150-199 mg/dL - 3 units Blood glucose 200-249 mg/dL - 5 units Blood glucose 250-299 mg/dL - 8 units Blood glucose 300-349 mg/dL - 10 units Blood glucose 350-400 mg/dL - 12 units Blood glucose greater than 400 mg/dL - 14 units and call provider {BKC} Caution: Look alike/sound alike drug alert{BKC} Given 09/15/2019 3:54 PM EST 5 Units Right Arm Given 09/15/2019 9:51 AM EST 3 Units Le ft Arm Given 09/14/2019 9:22 PM EST 12 Units Ri ght Arm insulin lispro (humaLOG) injection 5 Units 5 Units, Subcutaneous, 3 Times Daily With Meals, First dose on Thu09/14/19 at 0800, {BKC} Caution: Look alike/sound alike drug alert{BKC} Given 09/15/2019 3:54 PM EST 5 Units Right Arm Given 09/15/2019 9:50 AM EST 5 Units Ri ght Lower Abdomen Given 09/14/2019 4:59 PM EST 5 Units Ri ght Arm insulin regular (humuLIN R,novoLIN R) injection 0-14 Units 0-14 Units, Subcutaneous, Every 6 Hours Scheduled, First dose on Thu09/07/19 at 0600, Correction - Moderate-High Dose. 60-80 units/day total insulin dose or uses insulin at home Blood glucose 150-199 mg/dL - 3 units Blood glucose 200-249 mg/dL - 5 units Blood glucose 250-299 mg/dL - 8 units Blood glucose 300-349 mg/dL - 10 units Blood glucose 350-400 mg/dL - 12 units Blood glucose greater than 400 mg/dL - 14 units and call provider {BKC} Caution: Look alike/sound alike drug alert{BKC} Given 09/08/2019 12:37 PM EST 5 Units Right Upper Abdomen Given 09/08/2019 6:03 AM EST 8 Units Le ft Arm Given 09/07/2019 11:24 PM EST 8 Units L eft Upper Abdomen ipratropium-albuterol (DUO-NEB) nebulizer solution 3 mL 3 mL, Nebulization, Every 6 Hours - RT, First dose on Thu09/07/19 at 0700 Given 09/07/2019 8:02 AM EST 3 mL ipratropium-albuterol (DUO-NEB) nebulizer solution 3 mL 3 mL, Nebulization, Every 4 Hours - RT, First dose (after last modification) on Thu09/07/19 at 1130 Given 09/15/2019 3:37 PM EST 3 mL Given 09/15/2019 11:11 AM EST 3 mL Given 09/15/2019 6:58 AM EST 3 mL levothyroxine (SYNTHROID, LEVOTHROID) tablet 75 mcg 75 mcg, Oral, Every Fur Blowing Machine Attendant, First dose on Thu09/11/19 at 0600, Take on empty stomach. Given 09/15/2019 6:3 1 AM EST 75 mcg Given 09/14/2019 5:56 AM EST 75 mcg Given 09/13/2019 6:43 AM EST 75 mcg levothyroxine sodium injection 56 mcg 56 mcg, Intravenous, Daily at 1100, First dose on Thu09/08/19 at 1130 Given 09/08/2019 12:27 PM EST 56 mcg levothyroxine sodium injection 56 mcg 56 mcg, Intravenous, Daily at 1100, First dose on Thu09/09/19 at 1100 Given 09/10/2019 12:03 PM EST 56 mcg Given 09/09/2019 11:48 AM EST 56 mcg loperamide (IMODIUM) capsule 2 mg 2 mg, Oral, Once, On Thu09/09/19 at 1400, For 1 dose, Maximum recommended 16 mg / 24 hours. {BKC} Given 09/09/2019 1:10 PM EST 2 mg methylPREDNISolone sodium succinate (SOLU-Medrol) injection 100 mg 100 mg, Intravenous, Every 8 Hours, First dose on Thu09/07/19 at 0400, Caution: Look alike/sound alike drug alert Given 09/07/2019 4:48 AM EST 100 mg methylPREDNISolone sodium succinate (SOLU-Medrol) injection 20 mg 20 mg, Intravenous, Every 8 Hours, First dose (after last modification) on Thu09/08/19 at 1200, Caution: Look alike/sound alike drug alert Given 09/09/2019 4:23 AM EST 20 mg Given 09/08/2019 9:11 PM EST 20 mg Given 09/08/2019 12:27 PM EST 20 mg methylPREDNISolone sodium succinate (SOLU-Medrol) injection 40 mg 40 mg, Intravenous, Every 8 Hours, First dose (after last modification) on Thu09/07/19 at 1200, Caution: Look alike/sound alike drug alert Given 09/08/2019 4:40 AM EST 40 mg Given 09/07/2019 8:58 PM EST 40 mg Given 09/07/2019 2:37 PM EST 40 mg nystatin (MYCOSTATIN) powder Topical, Every 12 Hours Scheduled, First dose on Thu09/07/19 at 0345 Given 09/14/2019 9:21 PM EST Given 09/14/2019 9:36 AM EST Given 09/13/2019 9:49 PM EST pantoprazole (PROTONIX) EC tablet 40 mg 40 mg, Oral, Daily, First dose on Thu09/11/19 at 0900, Swallow whole; do not crush, split, or chew. Given 09/15/2019 9:49 AM EST 40 mg Given 09/14/2019 9:35 AM EST 40 mg Given 09/13/2019 9:07 AM EST 40 mg pantoprazole (PROTONIX) injection 40 mg 40 mg, Intravenous, Every 24 Hours Scheduled, First dose on Thu09/07/19 at 0900, Dilute with 10 mL of 0.9% NaCl and give IV push over 2 minutes., Indications: GI PPXIndications:GI PPX Given 09/10/2019 8:28 AM EST 40 mg Given 09/09/2019 8:01 AM EST 40 mg Given 09/08/2019 10:32 AM EST 40 mg potassium chloride (KLOR-CON) packet 10 mEq 10 mEq, Oral, Once, On Thu09/08/19 at 2245, For 1 dose, For use with a feeding tube. Mix in at least 4 oz. of liquid. Given 09/08/2019 11:06 PM EST 10 mEq potassium chloride (KLOR-CON) packet 40 mEq 40 mEq, Oral, 2 Times Daily, First dose on Thu09/09/19 at 1000, For 2 doses, For use with a feeding tube. Mix in at least 4 oz. of liquid. Given 09/09/2019 8:32 PM EST 40 mEq Given 09/09/2019 10:04 AM EST 40 mEq potassium chloride (MICRO-K) CR capsule 30 mEq 30 mEq, Oral, 2 Times Daily With Meals, First dose on Thu09/10/19 at 1800, Do not crush. Take with food. Given 09/15/2019 3:51 PM EST 30 mEq Given 09/14/2019 4:59 PM EST 30 mEq Given 09/14/2019 9:35 AM EST 30 mEq potassium chloride 10 mEq in 100 mL IVPB 10 mEq, Intravenous, at 100 mL/hr, Administer over 60 Minutes, 2 Times Daily, First dose on Thu09/07/19 at 1615, For 2 doses, OUTPATIENT/NON-MONITORED UNITS: Potassium Chloride standard bolus infusion rate is a maximum of 10 mEq/hr on unmonitored patients MONITORED UNITS: Potassium Chloride standard bolus infusion rate is a maximum of 20 mEq/hr on ECG monitored patients ONLY New Bag 09/07/2019 8:47 PM EST 10 mEq 100 mL/ hr New Bag 09/07/2019 3:22 PM EST 10 mEq 100 mL/hr potassium chloride 10 mEq in 100 mL IVPB 10 mEq, Intravenous, at 100 mL/hr, Administer over 60 Minutes, 3 Times Daily, First dose on Jeanette 09/08/19 at 1130, For 3 doses, OUTPATIENT/NON-MONITORED UNITS: Potassium Chloride standard bolus infusion rate is a maximum of 10 mEq/hr on unmonitored patients MONITORED UNITS: Potassium Chloride standard bolus infusion rate is a maximum of 20 mEq/hr on ECG monitored patients ONLY New Bag 09/08/2019 3:03 PM EST 10 mEq 100 mL/ hr New Bag 09/08/2019 12:27 PM EST 10 mEq 100 mL/hr predniSONE (DELTASONE) tablet 60 mg 60 mg, Oral, Daily With Breakfast, First dose on Thu09/09/19 at 1345, Take with food. Given 09/15/2019 9:49 AM EST 60 mg Given 09/14/2019 9:35 AM EST 60 mg Given 09/13/2019 9:07 AM EST 60 mg propofol (DIPRIVAN) infusion 10 mg/mL 100 mL 5-50 mcg/kg/min ? 131 kg (3.93-39.3 mL/hr), Intravenous, Titrated, Starting on Thu09/07/19 at 0245, Do not administer through the same IV catheter with blood or plasma. Tubing and any unused portions of propofol vials should be discarded after 12 hours. Begin infusion at 5 mcg/kg/min and titrate by by 5 mcg/kg/min every 5 minutes to maintain RASS goal. Maximum rate 50 mcg/kg/min. Notify MD if not at goal and requiring more than 50 mcg/kg/min. Infuse into dedicated line, change vial and tube every 12 hours. Patient must be intubated., RASS Goal: 0 TO -1 Currently Infusing 09/07/2019 8:00 AM EST 15 mcg/kg/min 11.79 mL/hr New Bag 09/07/2019 6:35 AM EST 15 mcg/kg/min 11.79 mL/h r Rate/Dose Change 09/07/2019 4:42 AM EST 20 mcg/kg/min 15.7 2 mL/hr rivaroxaban (XARELTO) tablet 20 mg 20 mg, Oral, Daily With Dinner, First dose on Thu09/07/19 at 1800, If giving by tube: suspend in 50mL water, administer, and immediately follow with enteral feeding. Give with food., Indications: Atrial Fibrillation - requiring full anticoagulationIndications:Atrial Fibrillation - requiring full anticoagulation Given 09/14/2019 4:5 9 PM EST 20 mg Given 09/13/2019 6:04 PM EST 20 mg Given 09/12/2019 5:36 PM EST 20 mg rosuvastatin (CRESTOR) tablet 10 mg 10 mg, Oral, Nightly, First dose on Thu09/07/19 at 2100, Avoid grapefruit juice. Given 09/14/2019 9:21 PM EST 10 mg Given 09/13/2019 9:50 PM EST 10 mg Given 09/12/2019 9:37 PM EST 10 mg saccharomyces boulardii (FLORASTOR) capsule 500 mg 500 mg, Oral, 2 Times Daily, First dose on Thu09/09/19 at 1000, For 7 days Given 09/15/2019 9:48 AM EST 500 mg Given 09/14/2019 9:21 PM EST 500 mg Given 09/14/2019 9:35 AM EST 500 mg sodium chloride 0.9 % flush 10 mL 10 mL, Intravenous, Every 12 Hours Scheduled, First dose on Thu09/07/19 at 0900 Given 09/14/2019 9:22 PM EST 10 mL Given 09/14/2019 9:37 AM EST 10 mL Given 09/13/2019 9:49 PM EST 10 mL sodium chloride 0.9 % flush 10 mL 10 mL, Intravenous, As Needed, Line Care, Starting on Thu09/07/19 at 0259 sulfamethoxazole-trimethoprim (BACTRIM DS,SEPTRA DS) 800-160 MG per tablet 160 mg 160 mg (1 tablet), Oral, 3 Times Weekly (Once per day on Thu), First dose on Thu09/09/19 at 1345, For 30 days, Indications: ProphylaxisIndications:Prophylaxis Given 09/09/2019 4:13 PM EST 160 mg venlafaxine XR (EFFEXOR-XR) 24 hr capsule 75 mg 75 mg, Oral, Daily, First dose on Thu09/07/19 at 1115, Swallow whole; do not crush or chew. Given 09/14/2019 12:42 PM EST 75 mg Given 09/13/2019 12:47 PM EST 75 mg Given 09/12/2019 8:40 AM EST 75 mg vitamin D3 capsule 5,000 Units 5,000 Units, Oral, Daily, First dose on Thu09/07/19 at 1115 Given 09/14/2019 12:42 PM EST 5,000 Units Given 09/12/2019 8:41 AM EST 5,000 Units Given 09/11/2019 8:07 AM EST 5,000 Units documented in this encounter Active and Recently Administered Medications Times are shown in EST. Scheduled Medication Order 09/13/2019 09/14/2019 09/15/2019 aspirin EC tablet 81 mg 81 mg, Oral, Daily, First dose on Thu09/07/19 at 1115, Herbal/drug interaction: Avoid use with ginkgo biloba. Do not crush or chew. Do not exceed 4 grams of aspirin in a 24 hr period. If given for pain, use the following pain scale: Mild Pain = Pain Score of 1-3, CPOT 1-2 Moderate Pain = Pain Score of 4-6, CPOT 3-4 Severe Pain = Pain Score of 7-10, CPOT 5-8 0907 (Given - Provider: Carolyne Lockett RN) 0935 (Given - Provider: Carolyne Lockett RN) 0948 (Given - Provider: Kirti Gray RN) azelastine (ASTELIN) nasal spray 2 spray 2 spray, Each Nare, 2 Times Daily, First dose on Thu09/07/19 at 1115 0908 (Given - Provider: Carolyne Lockett RN)215 (Not Given - Provider: Carolyne Alvarado RN - Reason: Patient/family refused) 0936 (Given - Provider: Carolyne Lockett RN)2122 (Not Given - Provider: Carolyne Alvarado RN - Reason: Patient/family refused) 0947 (Given - Provider: Kirti Gray RN) budesonide (PULMICORT) nebulizer solution 0.5 mg 0.5 mg, Nebulization, 2 Times Daily - RT, First dose on Thu09/07/19 at 1100, Do not shake. Protect from light. 0718 (Given - Provider: Bethel Han, RENTAL COUNTER CLERK)1904 (Given - Provider: Tawnya Nunez, RENTAL COUNTER CLERK) 0647 (Given - Provider: Sunny Russo, RENTAL COUNTER CLERK)1952 (Given - Provider: Abbe Martin, TRAIN CALLER) 0659 (Given - Provider: Tierra Roman, RENTAL COUNTER CLERK) cefTRIAXone (ROCEPHIN) 1 g/100 mL 0.9% NS (MBP) (COMPLETED) 1 g, Intravenous, Administer over 30 Minutes, Every 24 Hours, First dose on 09/10/19 at 0900, For 4 days, Caution: Look alike/sound alike drug alert. Break seal and mix to activiate vial before use., Indications: Pneumonia 0907 (New Bag - Provider: Carolyne Lockett RN) cetirizine (zyrTEC) tablet 10 mg 10 mg, Oral, Daily, First dose on Thu09/07/19 at 1115 0907 (Given - Provider: Carolyne Lockett RN) 0935 (Given - Provider: Carolyne Lockett RN) 0949 (Given - Provider: Kirti Gray RN) doxycycline (MONODOX) capsule 100 mg (COMPLETED) 100 mg, Oral, Every 12 Hours Scheduled, First dose on 09/10/19 at 1400, For 7 doses, Take with food if GI upset occurs. Avoid taking antacids, iron, or dairy products within 2 hours of dose., Indications: Pneumonia 0505 (Given - Provider: Maite Dorman RN)1633 (Given - Provider: Carolyne Lockett, MARINO) fluticasone (FLONASE) 50 MCG/ACT nasal spray 2 spray 2 spray, Nasal, Daily, First dose on Thu09/07/19 at 1115 0909 (Given - Provider: Carolyne Lokcett, RN) 0936 (Given - Provider: Carolyne Lockett, RN) 0947 (Given - Provider: Kirti Gray, MARINO) furosemide (LASIX) tablet 40 mg 40 mg, Oral, Daily, First dose on Thu09/11/19 at 0900 0906 (Given - Provider: Carolyne Lockett, MARINO) 0935 (Given - Provider: Carolyne Lockett, MARINO) 0949 (Given - Provider: Kirti Gray, MARINO) insulin detemir (LEVEMIR) injection 15 Units (CANCELED) 15 Units, Subcutaneous, Every 12 Hours Scheduled, First dose (after last modification) on Thu09/10/19 at 2100, {BKC} 0912 (Given - Provider: Kirti Gray, MARINO) insulin detemir (LEVEMIR) injection 17 Units 17 Units, Subcutaneous, Every 12 Hours Scheduled, First dose (after last modification) on Thu09/13/19 at 2130, {BKC} 2130 (Given - Provider: Carolyne Alvarado RN) 0929 (Given - Provider: Carolyne Lockett, MARINO)2100 (Given - Provider: Carolyne Alvarado RN) 0952 (Given - Provider: Kirti Gray, MARINO) insulin lispro (humaLOG) injection 0-14 Units 0-14 Units, Subcutaneous, 4 Times Daily With Meals & Nightly, First dose on Thu09/08/19 at 1800, Correction - Moderate-High Dose. 60-80 units/day total insulin dose or uses insulin at home Blood glucose 150-199 mg/dL - 3 units Blood glucose 200-249 mg/dL - 5 units Blood glucose 250-299 mg/dL - 8 units Blood glucose 300-349 mg/dL - 10 units Blood glucose 350-400 mg/dL - 12 units Blood glucose greater than 400 mg/dL - 14 units and call provider {BKC} Caution: Look alike/sound alike drug alert{BKC} 0909 (Given - Provider: Carolyne Lockett RN)1250 (Given - Provider: Carolyne Lockett, MARINO)1804 (Given - Provider: Carolyne Lockett, MARINO)2152 (Given - Provider: Carolyne Alvarado RN) 0936 (Given - Provider: Carolyne Lockett RN)1243 (Given - Provider: Carolyne Lockett RN)1700 (Given - Provider: Carolyne Lockett, MARINO)2122 (Given - Provider: Carolyne Alvarado RN) 0951 (Given - Provider: Kirti Gray, MARINO)1554 (Given - Provider: Lavern Ceja, MARINO) insulin lispro (humaLOG) injection 5 Units 5 Units, Subcutaneous, 3 Times Daily With Meals, First dose on Thu09/14/19 at 0800, {BKC} Caution: Look alike/sound alike drug alert{BKC} 0936 (Given - Provider: Carolyne Lockett RN)1243 (Given - Provider: Carolyne Lockett RN)1659 (Given - Provider: Carolyne Lockett RN)1706 (Not Given - Provider: Carolyne Lockett RN - Reason: Other - Comment: care clustered) 0950 (Given - Provider: Kirti Gray, MARINO)1554 (Given - Provider: Lavern Ceja, MARINO) ipratropium-albuterol (DUO-NEB) nebulizer solution 3 mL 3 mL, Nebulization, Every 4 Hours - RT, First dose (after last modification) on Thu09/07/19 at 1130 0413 (Given - Provider: Peter Hurtado, RENTAL COUNTER CLERK)0718 (Given - Provider: Bethel Han, RENTAL COUNTER CLERK)1148 (Given - Provider: eBthel Han, RENTAL COUNTER CLERK)1707 (Given - Provider: Blanco Spring RENTAL COUNTER CLERK)1905 (Given - Provider: Tawnya Nunez RRT)2335 (Given - Provider: Tawnya Nunez RENTAL COUNTER CLERK) 0235 (Given - Provider: Tawnya Nunez RENTAL COUNTER CLERK)0647 (Given - Provider: Sunny Russo, RENTAL COUNTER CLERK)1148 (Given - Provider: Sunny Russo, RENTAL COUNTER CLERK)1611 (Given - Provider: Sunny Russo RENTAL COUNTER CLERK)1953 (Given - Provider: Abbe Martin, TRAIN CALLER)2302 (Given - Provider: Sammie Torres RRT) 0355 (Given - Provider: Abbe Martin, TRAIN CALLER)0658 (Given - Provider: Tierra Roman, RENTAL COUNTER CLERK)1111 (Given - Provider: Tierra Roman, RENTAL COUNTER CLERK)1537 (Given - Provider: Tierra Roman, IRINA) levothyroxine (SYNTHROID, LEVOTHROID) tablet 75 mcg 75 mcg, Oral, Every Fur Blowing Machine Attendant, First dose on Thu09/11/19 at 0600, Take on empty stomach. 0643 (Given - Provider: Maite Dorman RN) 0556 (Given - Provider: Carolyne Alvarado RN) 0631 (Given - Provider: Carolyne Alvarado RN) nystatin (MYCOSTATIN) powder Topical, Every 12 Hours Scheduled, First dose on Thu09/07/19 at 0345 0912 (Given - Provider: Carolyne Lockett RN)2149 (Given - Provider: Carolyne Alvarado RN) 0936 (Given - Provider: Carolyne Lockett RN)2121 (Given - Provider: Carolyne Alvarado RN) 1300 (Due - Provider: Kirti Gray RN) pantoprazole (PROTONIX) EC tablet 40 mg 40 mg, Oral, Daily, First dose on Thu09/11/19 at 0900, Swallow whole; do not crush, split, or chew. 0907 (Given - Provider: Carolyne Lockett RN) 0935 (Given - Provider: Carolyne Lockett RN) 0949 (Given - Provider: Kirti Gray RN) potassium chloride (MICRO-K) CR capsule 30 mEq 30 mEq, Oral, 2 Times Daily With Meals, First dose on Thu09/10/19 at 1800, Do not crush. Take with food. 0907 (Given - Provider: Carolyne Lockett RN)1804 (Given - Provider: Carolyne Lockett RN) 0935 (Given - Provider: Carolyne Lockett RN)1659 (Given - Provider: Carolyne Lockett RN)1706 (Not Given - Provider: Carolyne Lockett RN - Reason: Other - Comment: care clustered) 1551 (Given - Provider: Lavern Ceja RN) predniSONE (DELTASONE) tablet 60 mg 60 mg, Oral, Daily With Breakfast, First dose on Thu09/09/19 at 1345, Take with food. 0907 (Given - Provider: Carolyne Lockett RN) 0935 (Given - Provider: Carolyne Lockett RN) 0949 (Given - Provider: Kirti Gray, MARINO) rivaroxaban (XARELTO) tablet 20 mg 20 mg, Oral, Daily With Dinner, First dose on Thu09/07/19 at 1800, If giving by tube: suspend in 50mL water, administer, and immediately follow with enteral feeding. Give with food., Indications: Atrial Fibrillation - requiring full anticoagulation 1804 (Given - Provider: Carolyne Lockett RN) 1659 (Given - Provider: Carolyne Lockett RN)1707 (Not Given - Provider: Carolyne Lockett RN - Reason: Other - Comment: care clustered) rosuvastatin (CRESTOR) tablet 10 mg 10 mg, Oral, Nightly, First dose on Thu09/07/19 at 2100, Avoid grapefruit juice. 2149 (Given - Provider: Carolyne Alvarado RN) 2120 (Given - Provider: Carolyne Alvarado RN) saccharomyces boulardii (FLORASTOR) capsule 500 mg 500 mg, Oral, 2 Times Daily, First dose on Thu09/09/19 at 1000, For 7 days 09 (Given - Provider: Carolyne Lockett RN)2149 (Given - Provider: Carolyne Alvarado RN) 09 (Given - Provider: Carolyne Lockett RN)2120 (Given - Provider: Carolyne Alvarado RN) 0948 (Given - Provider: Kirti Gray RN) sodium chloride 0.9 % flush 10 mL 10 mL, Intravenous, Every 12 Hours Scheduled, First dose on Thu09/07/19 at 0900 0908 (Given - Provider: Carolyne Lockett RN)2148 (Given - Provider: Carolyne Alvarado RN) 09 (Given - Provider: Carolyne Lockett RN)2121 (Given - Provider: Carolyne Alvarado RN) 0900 (Due) venlafaxine XR (EFFEXOR-XR) 24 hr capsule 75 mg 75 mg, Oral, Daily, First dose on Thu09/07/19 at 1115, Swallow whole; do not crush or chew. 1247 (Given - Provider: Carolyne Lockett RN) 1242 (Given - Provider: Carolyne Lockett RN) 0900 (Due) vitamin D3 capsule 5,000 Units 5,000 Units, Oral, Daily, First dose on Thu09/07/19 at 1115 1805 (Not Given - Provider: Carolyne Lockett RN - Reason: Medication not available) 1242 (Given - Provider: Carolyne Lockett RN) 0900 (Due) PRN Medication Order 09/13/2019 09/14/2019 09/15/2019 calcium carbonate EX (TUMS EX) chewable tablet 750 mg 750 mg, Oral, 3 Times Daily PRN, Indigestion, Heartburn, Starting on Thu09/10/19 at 2057, Take with food dextrose (D50W) 25 g/ 50mL Intravenous Solution 25 g 25 g, Intravenous, Every 15 Minutes PRN, Low Blood Sugar, Blood Sugar Less Than 70, Starting on Thu09/07/19 at 0302, Blood sugar less than 70; patient has IV access - Unresponsive, NPO or Unable To Safely Swallow dextrose (GLUTOSE) oral gel 15 g 15 g, Oral, Every 15 Minutes PRN, Low Blood Sugar, Blood sugar less than 70, Starting on Thu09/07/19 at 0302, BS<70, Patient Alert, Is not NPO, Can safely swallow. 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 09/08/2019 09/08/2019 documented as of this encounter Care Teams Beater Dumper Relationship Specialty Start Date End Date Huber Grossman MD PCP - General Family Medicine 02/08/18 09/28/19 documented as of this encounter
--- OUTSIDE RECORDS SUMMARY | 2024-08-02 15:10 | XMS_ITS | Encounter Summary ---
[facility] Address [address] [place] [address] Care Team Providers Care Assembler Installer Structures Name Role Phone Huber Grossman MD Primary Care Provider Barbara valladares Reason for Visit * Reason Onset Date Comments AH - med refill 08/09/2019 Encounter Details Date Type Department Care Team (Late st Contact Info) Description 08/09/2019 Telephone [facility] [address] [facility] [address] [place] [id number] Huber Grossman MD AH - med refill Social History Tobacco Use Types Packs/Day Years [...] encounter Miscellaneous Notes * Telephone Encounter - Remigio Morton MA - 08/09/2019 5:51 PM EST Pt was informed and has an appt with Dr. Grossman tomorrow 08/09/19. * Telephone Encounter - Huber Grossman MD - 08/09/2019 12:40 PM EST Will need to come back in for that or see her HSP specialist * Telephone Encounter - Remigio Morton MA - 08/09/2019 9:14 AM EST Please advise * Telephone Encounter - Eri Lorenzo RegSched Rep - 08/09/2019 8:18 AM EST Pt called and stated that she has another outbreadk of HST - she is requesting prednisone Pt call back [phone] LIZZY vazquez - confirmed documented in this encounter Plan of Treatment Not on file documented as of this encounter Visit Diagnoses Not on filedocumented in this encounter Care Teams Assembler Installer Structures Relationship Specialty Start Date End Date Huber Grossman MD PCP - General Family Medicine 02/08/18 09/28/19 documented as of this encounter
--- OUTSIDE RECORDS SUMMARY | 2024-08-02 15:10 | XMS_ITS | Encounter Summary ---
Author Organization [facility] Address [address] [place] [address] Care Team Providers Care Hydro Generation Supervisor Name Role Phone Huber Grossman MD Primary Care Provider Barbara valladares Reason for Referral * Diagnostic Imaging (Routine) - Closed Specialty Diagnoses / Procedures Referred By Esequiel hall Referred To Contact Radiology Diagnoses Visit for screening mammogram Procedures Mammo Screening Digital Tomosynthesis Bilateral With CAD Huber Grossman MD [address] [address] Phone: tel: fax: Referral ID Status Reason Start Date Expiration Date Visits Re quested Visits Authorized [id number] Closed 10/19/2018 10/19/2019 1 1 Reason for Visit * Diagnostic Imaging (Routine) - Closed Specialty Diagnoses / Procedures Referred By Esequiel hall Referred To Contact Radiology Diagnoses Visit for screening mammogram Procedures Mammo Screening Digital Tomosynthesis Bilateral With CAD Huber Grossman MD [address] [address] Phone: tel: fax: Referral ID Status Reason Start Date Expiration Date Visits Re quested Visits Authorized [id number] Closed 10/19/2018 10/19/2019 1 1 Encounter Details Date Type Department Care Team (Latest Contact Info) Description 11/30/2018 9:38 AM EDT - 11/30/2018 11:59 PM EDT Hospital Encounter [facility] [place] [address] Huber Grosmsan MD Visit for screening mammogram Discharge Disposition: Home [...] this encounter Medications at Time of Discharge Cholecalciferol (VITAMIN D3) 5000 units capsule capsule Take 5,000 Units by mouth Daily. aspirin 81 MG EC tablet Take 81 mg by mouth Daily. 2 azelastine (ASTELIN) 0.1 % nasal spray 2 sprays into the nostril(s) as directed by provider Daily. Use in each nostril as directed 30 mL 5 04/27/2018 9 azithromycin (ZITHROMAX) 250 MG tablet Take 2 tablets the first day, then 1 tablet daily for 4 days. 6 tablet 09/17/2018 9 budesonide-formo terol (SYMBICORT) 160-4.5 MCG/ACT inhaler Inhale 2 puffs 2 (Two) Times a Day. 3 inhaler 3 09/17/2018 2 diazePAM (VALIUM) 5 MG tablet Take 5 mg by mouth 2 (Two) Times a Day As Needed for Anxiety. 9 diazePAM (VALIUM) 5 MG tabletIndication s:Anxiety Take 1 tablet by mouth 2 (Two) Times a Day As Needed for Anxiety. 30 tablet 1 09/23/2018 9 DILT-XR 120 MG 24 hr capsule TAKE 1 CAPSULE BY MOUTH DAILY 90 capsule 1 11/08/2018 9 diltiaZEM SR (CARDIZEM SR) 120 MG 12 hr capsule Take 1 capsule by mouth Daily. 90 capsule 1 09/21/2018 0 fluticasone (FLONASE) 50 MCG/ACT nasal spray 2 sprays into the nostril(s) as directed by provider Daily. 3 bottle 1 04/28/2018 2 glipiZIDE (GLUCOTROL) 5 MG tablet Take 1 tablet by mouth 2 (Two) Times a Day Before Meals. 180 tablet 1 09/17/2018 9 levalbuterol (XOPENEX HFA) 45 MCG/ACT inhaler Inhale 1-2 puffs Every 4 (Four) Hours As Needed for Wheezing. 2 olmesartan (BENICAR) 20 MG tablet Take 1 tablet by mouth Daily. 90 tablet 1 04/08/2018 9 omeprazole (priLOSEC) 20 MG capsule Take 1 capsule by mouth Daily. 90 capsule 1 04/27/2018 9 rosuvastatin (CRESTOR) 10 MG tablet Take 1 tablet by mouth Every Night. 90 tablet 1 09/17/2018 9 Sod Picosulfate-Mag Ox-Cit Acd 10-3.5-12 MG-GM -GM/160ML solutionIndicati ons:Screening for colon cancer Take 1 kit by mouth Take As Directed. Follow instructions that were mailed to your home. If you didn't receive these call [phone]. 2 bottle 05/17/2018 9 topiramate (TOPAMAX) 25 MG tablet Take 1 tablet by mouth every night at bedtime. For tremor 30 tablet 2 09/17/2018 9 triamterene-hydr ochlorothiazide (MAXZIDE-25) 37.5-25 MG per tablet Take 1 tablet by mouth Daily. 30 tablet 1 09/17/2018 0 venlafaxine XR (EFFEXOR-XR) 75 MG 24 hr capsule Take 1 capsule by mouth Daily. 90 capsule 11/22/2018 9 documented as of this encounter Plan of Treatment Not on file documented as of this encounter Procedures Procedure Name Priority Date/Time Associated Diagnosis Comments MAMMO SCREENING DIGITAL TOMOSYNTHESIS BILATERAL W CAD Routine 11/30/2018 10:32 AM EDT Visit for screening mammogram documented in this encounter Results * Mammo Screening Digital Tomosynthesis Bilateral With CAD (11/30/2018 10:32 AM EDT) Anatomical Region Laterality Modality Breast N/A Mammography 11/30/2018 12:0 8 PM EDT Impressions 11/30/2018 12:08 PM EDT Negative bilateral mammogram. RECOMMENDATION: ??Continue [...] patient. ?? This report was finalized on 11/30/2018 12:[address] Hailey Rivas MD. Narrative 11/30/2018 12:08 PM EDT HISTORY: Screening Mammography. Low dose full field digital breast tomosynthesis imaging was performed with 2D and 3D acquisitions consisting of bilateral CC and MLO views. Examination is compared to prior examination dating back to 11/29/2010. Examination is read in conjunction with computer aided detection. FINDINGS: ?? There are scattered areas of fibroglandular density. No suspicious masses, microcalcifications or ??areas of architectural distortion are present. Huber Grossman MD IMG MAMMOGRAPHY ORDERABLES Fi nal Result documented in this encounter Visit Diagnoses Diagnosis Visit for screening mammogram documented in this encounter Care Teams Hydro Generation Supervisor Relationship Specialty Start Date End Date Huber Grossman MD PCP - General Family Medicine 02/08/18 09/28/19 documented as of this encounter
--- OUTSIDE RECORDS SUMMARY | 2024-08-02 15:10 | XMS_ITS | Encounter Summary ---
Author Organization [facility] Address [address] [place] [address] Care Team Providers Care Mechanic Industrial Truck Name Role Phone Huber Grossman MD Primary Care Provider Barbara valladares Reason for Visit * Reason Comments Alfredo 3 wk f/u Encounter Details Date Type Department Care Team (Late st Contact Info) Description 04/14/2019 10:30 AM EDT Office Visit [facility] [address] [phone] Huber Grossman MD Purpura (Primary Dx); Essential hypertension; Type 2 diabetes mellitus without complication, without long-term current use of insulin; Other depression Social History Tobacco Use Types Packs/Day Years [...] Sign Reading Time Taken Comments Blood Pressure 122/80 04/14/2019 10:27 AM EDT Pulse 95 04/14/2019 10:27 AM EDT Temperature - - Respiratory Rate 16 04/14/2019 10:27 AM EDT Oxygen Saturation 96% 04/14/2019 10:27 AM EDT Inhaled Oxygen Concentration - - Weight 127 kg (280 lb) 04/14/2019 10:27 AM EDT Height 156.2 cm (5' 1.5 ) 04/14/2019 10:27 AM ED T Body Mass Index 52.05 04/14/2019 10:27 AM EDT documented in this encounter Progress Notes * Huber Grossman MD - 04/14/2019 10:30 AM EDT Subjective Mirtha Mayberry is a 69 y.o. female. Diabetes She presents for her follow-up (doing much better on diet) diabetic visit. She has type 2 diabetes mellitus. Her disease course has been improving. Hypoglycemia symptoms include nervousness/anxiousness. Pertinent negatives for hypoglycemia include no dizziness or headaches. Associated symptoms include polyuria. Pertinent negatives for diabetes include no fatigue, no polydipsia, no polyphagia, no weakness and no weight loss. There are no hypoglycemic complications. Symptoms are stable. Risk factors for coronary artery disease include obesity, sedentary lifestyle, post-menopausal and tobacco exposure. Current diabetic treatment includes oral agent (monotherapy). She is compliant with treatment some of the time. Her weight is stable. She participates in exercise intermittently. An CHAS inhibitor/angiotensin II receptor shefali is being taken. Eye exam is current. Hypertension This is a chronic problem. The problem is unchanged. The problem is controlled. Pertinent negativesinclude no headaches, palpitations or shortness of breath. Risk factors for coronary artery diseaseinclude obesity, post-menopausal state, dyslipidemia and diabetes mellitus. Current antihypertension treatment includes angiotensin blockers, calcium channel blockers and lifestyle changes. The curren t treatment provides significant improvement. Compliance problems include exercise. Depression Visit Type: follow-up (improving) Patient presents with the following symptoms: depressed mood and nervousness/anxiety. Patient is not experiencing: feelings of hopelessness, palpitations, panic, shortness of breath andweight loss. Frequency of symptoms: occasionally Severity: moderate Sleep quality: fair Nighttime awakenings: occasional Rash This is a recurrent (some better but unable to get prednisone) problem. The current episode startedin the past 7 days. The problem has been gradually worsening since onset. The affected locations include the left lower leg and right lower leg. The rash is characterized by redness. Pertinent negatives include no congestion, cough, diarrhea, eye pain, fatigue, shortness of breath or vomiting. Pasttreatments include moisturizer. The treatment provided mild relief. The following portions of the patient's history were reviewed and updated as appropriate: allergies, current medications, past social history and problem list. Review of Systems Constitutional: Negative for chills, fatigue and weight loss. HENT: Negative for congestion and postnasal drip. Eyes: Negative for pain. Respiratory: Negative for cough and shortness of breath. Cardiovascular: Negative for palpitations. Gastrointestinal: Negative for diarrhea and vomiting. Endocrine: Positive for polyuria. Negative for polydipsia and polyphagia. Genitourinary: Negative for dysuria and hematuria. Skin: Positive for color change and rash. Neurological: Negative for dizziness, weakness and headaches. Psychiatric/Behavioral: The patient is nervous/anxious. Objective BP 122/80 Pulse 95 Resp 16 Ht 156.2 cm (61.5 ) Wt 127 kg (280 lb) SpO2 96% BMI 52.05 kg/m?? Physical Exam Constitutional: She is oriented to person, place, and time. She appears well- developed and well-nourished. She is cooperative. HENT: Head: Normocephalic. Right Ear: External ear normal. Left Ear: External ear normal. Nose: Nose normal. Mouth/Throat: Oropharynx is clear and moist. Eyes: Conjunctivae are normal. Pupils are equal, round, and reactive to light. No scleral icterus. Neck: Neck supple. No JVD present. Carotid bruit is not present. No thyromegaly present. Cardiovascular: Normal rate, regular rhythm and normal heart sounds. Pulmonary/Chest: Effort normal and breath sounds normal. Abdominal: There is no hepatosplenomegaly. Musculoskeletal: Normal range of motion. She exhibits no edema or tenderness. Neurological: She is alert and oriented to person, place, and time. No focal deficits no lateralizing signs Skin: Skin is warm and dry. No rash noted. Psychiatric: She has a normal mood and affect. Cognition and memory are normal. Nursing note and vitals reviewed. Assessment/Plan Problem List Items Addressed This Visit Active Problems Essential hypertension Type 2 diabetes mellitus without complication, without long-term current use of insulin ([facility]) Other Visit Diagnoses Purpura ([facility]) - Primary Relevant Medications betamethasone dipropionate (DIPROLENE) 0.05 % cream predniSONE (DELTASONE) 10 MG tablet Other Relevant Orders POCT urinalysis dipstick, automated (Completed) Other depression New Medications Ordered This Visit Medications ??? betamethasone dipropionate (DIPROLENE) 0.05 % cream Sig: Apply topically to the appropriate area as directed 2 (Two) Times a Day. Dispense: 45 g Refill: 0 ??? predniSONE (DELTASONE) 10 MG tablet Sig: Take 2 tablets by mouth Daily. Dispense: 40 tablet Refill: 0 Mood improved on current dose of venlafaxine, new prescription for prednisone is E prescribed to pharmacy in [place]. Last A1c was satisfactory continue current diabetic treatment. Encouraged weight loss and gentle exercise. documented in this encounter Plan of Treatment Not on file documented as of this encounter Procedures Procedure Name Priority Date/Time Associated Diagnosis Comments POCT URINALYSIS DIPSTICK, AUTOMATED Routine 04/14/2019 10:55 AM EDT Purpura documented in this encounter Results * (ABNORMAL) POCT urinalysis dipstick, automated (04/14/2019 10:55 AM EDT) Color Dark Yellow Yellow, Straw, Dark Yellow, Yumiko [facility] Clarity, UA Cloudy(A) Clear [facility] Specific Cook 1.025 1.005 - 1.030 [facility] pH, Urine 6.0 5.0 - 8.0 [facility] Leukocytes Trace(A) Negative [facility] Nitrite, UA Positive(A) Negative [facility] Protein, POC 30 mg/dL(A) Negative mg/dL [facility] Glucose, UA Negative Negative, 1000 mg/dL (3+) mg/dL [facility] Ketones, UA Negative Negative [facility] Urobilinogen, UA Normal Normal [facility] Bilirubin Negative Negative [facility] Blood, UA Negative Negative [facility] Urine 04/14/2019 10:5 5 AM EDT Huber Grossman MD POINT OF CARE TEST ORDERABLES Final Result [facility]
[address] [place] [address], documented in this encounter Visit Diagnoses Diagnosis Purpura- Primary Other nonthrombocytopenic purpuras Essential hypertension Unspecified essential hypertension Type 2 diabetes mellitus without complication, without long-term current use of insulin Other depression documented in this encounter Care Teams Mechanic Industrial Truck Relationship Specialty Start Date End Date Huber Grossman MD PCP - General Family Medicine 02/08/18 09/28/19 documented as of this encounter
--- OUTSIDE RECORDS SUMMARY | 2024-08-02 15:10 | XMS_ITS | Encounter Summary ---
Author Organization [facility] Address [address] [place] [address] Care Team Providers Care Supervisor Roving Name Role Phone Huber Grossman MD Primary Care Provider Barbara valladares Reason for Visit * Reason Comments Med Refill Encounter Details Date Type Department Care Team (Late st Contact Info) Description 05/16/2019 Refill [facility] [address] [facility] [address] [place] [address] Huber Grossman MD Social History Tobacco Use [...] on filedocumented in this encounter Care Teams Supervisor Roving Relationship Specialty Start Date End Date Huber Grossman MD PCP - General Family Medicine 02/08/18 09/28/19 documented as of this encounter
--- OUTSIDE RECORDS SUMMARY | 2024-08-02 15:10 | XMS_ITS | Encounter Summary ---
Author Organization [facility] Address [address] [place] [address] Care Team Providers Care Sql Architect Name Role Phone Dano Romero MD Primary Care Provider [phone] Reason for Visit * Reason Comments Med Refill Encounter Details Date Type Department Care Team (Late st Contact Info) Description 07/08/2019 Refill [facility] [address] [phone] Huber Grossman MD Social History Tobacco Use [...] Telephone Encounter - Remigio Morton MA - 07/08/2019 1:37 PM EDT . * Telephone Encounter - Rick Dewitt III, RegSched Rep - 07/08/2019 10:48 AM EDT Patient states that when she went to go tack picker her refill that she was informed that it was . Patient states that she has 1 Diazepam left. Please advise. 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 09/08/2019 09/08/2019 documented as of this encounter Care Teams Sql Architect Relationship Specialty Start Date End Date Dano Romero MD [address] [place] [address] PCP - General Internal Medicine 09/29/19 documented as of this encounter
--- OUTSIDE RECORDS SUMMARY | 2024-08-02 15:10 | XMS_ITS | Encounter Summary ---
Author Organization [facility] Address [address] [place] [address] Care Team Providers Care Russian Language Professor Name Role Phone Huber Grossman MD Primary Care Provider Barbara valladares Reason for Visit * Reason Comments Med Refill Encounter Details Date Type Department Care Team (Late st Contact Info) Description 07/06/2019 Refill [facility] [address] [facility] [address] [place] [phone] Huber Grossman MD Social History Tobacco Use [...] Telephone Encounter - Remigio Morton MA - 07/06/2019 3:40 PM EDT Phoned in Rx. * Telephone Encounter - Huber Grossman MD - 07/06/2019 11:29 AM EDT Ok 1 refill only * Telephone Encounter - Remigio Morton MA - 07/06/2019 9:25 AM EDT Please advise documented in this encounter Plan of Treatment Not on file documented as of this encounter Visit Diagnoses Not on filedocumented in this encounter Care Teams Russian Language Professor Relationship Specialty Start Date End Date Huber Grossman MD PCP - General Family Medicine 02/08/18 09/28/19 documented as of this encounter
--- OUTSIDE RECORDS SUMMARY | 2024-08-02 15:10 | XMS_ITS | Encounter Summary ---
Author Organization [facility] Address [address] [place] [address] Care Team Providers Care Data Power Consultant Name Role Phone Huber Grossman MD Primary Care Provider Barbara valladares Reason for Visit * Reason Comments Leg Swelling started over the wee kend Encounter Details Date Type Department Care Team (Late st Contact Info) Description 06/10/2019 4:00 PM EDT Office Visit [facility] [address] [place] [address] Daniela Mclean, BAND SINGER [address] [place], [place] [id number] Edema, unspecified type (Primary Dx); HSP (Henoch Schonlein purpura); Type 2 diabetes mellitus without complication, without long-term current use of insulin Social History Tobacco Use Types Packs/Day Years [...] Sign Reading Time Taken Comments Blood Pressure 128/84 06/10/2019 4:29 PM EDT Pulse 77 06/10/2019 4:29 PM EDT Temperature 35.9 ??C (96.7 ??F) 06/10/2019 4:29 PM ED T Respiratory Rate 22 06/10/2019 4:29 PM EDT Oxygen Saturation 95% 06/10/2019 4:29 PM EDT Inhaled Oxygen Concentration - - Weight 129 kg (285 lb) 06/10/2019 4:29 PM EDT Height 154.9 cm (5' 1 ) 06/10/2019 4:29 PM EDT Body Mass Index 53.85 06/10/2019 4:29 PM EDT documented in this encounter Patient Instructions * Patient Instructions* Daniela Mclean APRN - 06/10/2019 4:00 PM EDT Images from the original note were not included. Edema Edema is an abnormal buildup of fluids in the body tissues and under the skin. Swelling of the legs, feet, and ankles is a common symptom that becomes more likely as you get older. Swelling is also common in looser tissues, like around the eyes. When the affected area is squeezed, the fluid may move out of that spot and leave a dent for a few moments. This dent is called pitting edema. There are many possible causes of edema. Eating too much salt (sodium) and being on your feet or sitting for a long time can cause edema in your legs, feet, and ankles. Hot weather may make edema worse. Common causes of edema include: ?? Heart failure. ?? Liver or kidney disease. ?? Weak leg blood vessels. ?? Cancer. ?? An injury. ?? . ?? Medicines. ?? Being obese. ?? Low protein levels in the blood. Edema is usually painless. Your skin may look swollen or shiny. Follow these instructions at home: ?? Keep the affected body part raised (elevated) above the level of your heart when you are sittingor lying down. ?? Do not sit still or stand for long periods of time. ?? Do not wear tight clothing. Do not wear garters on your upper legs. ?? Exercise your legs to get your circulation going. This helps to move the fluid back into your blood vessels, and it may help the swelling go down. ?? Wear elastic bandages or support stockings to reduce swelling as told by your health care provider. ?? Eat a low-salt (low-sodium) diet to reduce fluid as told by your health care provider. ?? Depending on the cause of your swelling, you may need to limit how much fluid you drink (fluid restriction). ?? Take uyxr-sow-hanmlfd and prescription medicines only as told by your health care provider. Contact a health care provider if: ?? Your edema does not get better with treatment. ?? You have heart, liver, or kidney disease and have symptoms of edema. ?? You have sudden and unexplained weight gain. Get help right away if: ?? You develop shortness of breath or chest pain. ?? You cannot breathe when you lie down. ?? You develop pain, redness, or warmth in the swollen areas. ?? You have heart, liver, or kidney disease and suddenly get edema. ?? You have a fever and your symptoms suddenly get worse. Summary ?? Edema is an abnormal buildup of fluids in the body tissues and under the skin. ?? Eating too much salt (sodium) and being on your feet or sitting for a long time can cause edema in your legs, feet, and ankles. ?? Keep the affected body part raised (elevated) above the level of your heart when you are sittingor lying down. This information is not intended to replace advice given to you by your health care provider. Make sure you discuss any questions you have with your health care provider. Document Released: 08/24/2006 Document Revised: 09/26/2017 Document Reviewed: 09/26/2017 [employer] Interactive Patient Education ?? 2019 [employer] Deep Vein Thrombosis Deep vein thrombosis (DVT) is a condition in which a blood clot forms in a deep vein, such as a lower leg, thigh, or arm vein. A clot is blood that has thickened into a gel or solid. This condition is dangerous. It can lead to serious and even life-threatening complications if the clot travels to the lungs and causes a blockage (pulmonary embolism). It can also damage veins in the leg. This can result in leg pain, swelling, discoloration, and sores (post-thrombotic syndrome). What are the causes? This condition may be caused by: ?? A slowdown of blood flow. ?? Damage to a vein. ?? A condition that causes blood to clot more easily, such as an inherited clotting disorder. What increases the risk? The following factors may make you more likely to develop this condition: ?? Being overweight. ?? Being older, especially over age 60. ?? Sitting or lying down for more than four hours. ?? Being in the hospital. ?? Lack of physical activity (sedentary lifestyle). ?? , being in childbirth, or having recently given . ?? Taking medicines that contain estrogen, such as medicines to prevent . ?? Smoking. ?? A history of any of the following: ? Blood clots or a blood clotting disease. ? Peripheral vascular disease. ? Inflammatory bowel disease. ? Cancer. ? Heart disease. ? Genetic conditions that affect how your blood clots, such as Factor V Leiden mutation. ? Neurological diseases that affect your legs (leg paresis). ? A recent injury, such as a car accident. ? Major or lengthy surgery. ? A central line placed inside a large vein. What are the signs or symptoms? Symptoms of this condition include: ?? Swelling, pain, or tenderness in an arm or leg. ?? Warmth, redness, or discoloration in an arm or leg. If the clot is in your leg, symptoms may be more noticeable or worse when you stand or walk. Some people may not develop any symptoms. How is this diagnosed? This condition is diagnosed with: ?? A medical history and physical exam. ?? Tests, such as: ? Blood tests. These are done to check how well your blood clots. ? Ultrasound. This is done to check for clots. ? Venogram. For this test, contrast dye is injected into a vein and X-rays are taken to check for any clots. How is this treated? Treatment for this condition depends on: ?? The cause of your DVT. ?? Your risk for bleeding or developing more clots. ?? Any other medical conditions that you have. Treatment may include: ?? Taking a blood thinner (anticoagulant). This type of medicine prevents clots from forming. It may be taken by mouth, injected under the skin, or injected through an IV (catheter). ?? Injecting clot-dissolving medicines into the affected vein (catheter-directed thrombolysis). ?? Having surgery. Surgery may be done to: ? Remove the clot. ? Place a filter in a large vein to catch blood clots before they reach the lungs. Some treatments may be continued for up to six months. Follow these instructions at home: If you are taking blood thinners: ?? Take the medicine exactly as told by your health care provider. Some blood thinners need to be taken at the same time every day. Do not skip a dose. ?? Talk with your health care provider before you take any medicines that contain aspirin or NSAIDs. These medicines increase your risk for dangerous bleeding. ?? Ask your health care provider about foods and drugs that could change the way the medicine works(may interact). Avoid those things if your health care provider tells you to do so. ?? Blood thinners can cause easy bruising and may make it difficult to stop bleeding. Because of this: ? Be very careful when using knives, scissors, or other sharp objects. ? Use an electric razor instead of a blade. ? Avoid activities that could cause injury or bruising, and follow instructions about how to prevent falls. ?? Wear a medical alert bracelet or carry a card that lists what medicines you take. General instructions ?? Take gktm-ype-gjjtjni and prescription medicines only as told by your health care provider. ?? Return to your normal activities as told by your health care provider. Ask your health care provider what activities are safe for you. ?? Wear compression stockings if recommended by your health care provider. ?? Keep all follow-up visits as told by your health care provider. This is important. How is this prevented? To lower your risk of developing this condition again: ?? For 30 or more minutes every day, do an activity that: ? Involves moving your arms and legs. ? Increases your heart rate. ?? When traveling for longer than four hours: ? Exercise your arms and legs every hour. ? Drink plenty of water. ? Avoid drinking alcohol. ?? Avoid sitting or lying for a long time without moving your legs. ?? If you have surgery or you are hospitalized, ask about ways to prevent blood clots. These may include taking frequent walks or using anticoagulants. ?? Stay at a healthy weight. ?? If you are a woman who is older than age 35, avoid unnecessary use of medicines that contain estrogen, such as some control pills. ?? Do not use any products that contain nicotine or tobacco, such as cigarettes and e-cigarettes. This is especially important if you take estrogen medicines. If you need help quitting, ask your health care provider. Contact a health care provider if: ?? You miss a dose of your blood thinner. ?? Your menstrual period is heavier than usual. ?? You have unusual bruising. Get help right away if: ?? You have: ? New or increased pain, swelling, or redness in an arm or leg. ? Numbness or tingling in an arm or leg. ? Shortness of breath. ? Chest pain. ? A rapid or irregular heartbeat. ? A severe headache or confusion. ? A cut that will not stop bleeding. ?? There is blood in your vomit, stool, or urine. ?? You have a serious fall or accident, or you hit your head. ?? You feel light-headed or dizzy. ?? You cough up blood. These symptoms may represent a serious problem that is an emergency. Do not wait to see if the symptoms will go away. Get medical help right away. Call your local emergency services (911 in the [place] Do not drive yourself to the hospital. Summary ?? Deep vein thrombosis (DVT) is a condition in which a blood clot forms in a deep vein, such as a lower leg, thigh, or arm vein. ?? Symptoms can include swelling, warmth, pain, and redness in your leg or arm. ?? This condition may be treated with a blood thinner (anticoagulant medicine), medicine that is injected to dissolve blood clots,compression stockings, or surgery. ?? If you are prescribed blood thinners, take them exactly as told. This information is not intended to replace advice given to you by your health care provider. Make sure you discuss any questions you have with your health care provider. Document Released: 08/24/2006 Document Revised: 01/22/2018 Document Reviewed: 01/22/2018 [employer] Interactive Patient Education ?? 2019 [employer] Henoch-Schonlein Purpura, Adult Henoch-Schonlein purpura (HSP) is a condition that causes swelling and inflammation of small blood vessels (vasculitis). This inflammation makes blood vessels leak, which causes a rash. The rash can appear anywhere, but it is most common on the arms, legs, and buttocks. HSP can also cause: ?? Bleeding into your bowel and kidneys. ?? Joint inflammation. ?? Kidney damage. It can lead to long-term or end-stage kidney disease and kidney failure. What are the causes? An overactive disease-fighting system (immune system) causes HSP. This means that something triggers your immune system to produce proteins (antibodies) that attack your blood vessels. This is calledan autoimmune reaction. Triggers for HSP may include: ?? Infections from certain viruses or bacteria. ?? Certain medicines. ?? Certain types of cancer. What increases the risk? You are more likely to develop this condition if: ?? You have allergies. ?? You have a family history of HSP. ?? You are male. What are the signs or symptoms? The main symptom of this condition is a skin rash that may look like raised bruises or dots. The rash changes color over time from reddish-purple to rust- colored. The rash color does not go away whenyou press the spots. Other symptoms include: ?? Fever. ?? Tiredness (fatigue). ?? Abdomen (abdominal) pain. This may include nausea, vomiting, and diarrhea. ?? Blood or protein in your urine. ?? Blood in your stool. ?? Swollen and painful joints, especially the knees and ankles. ?? Swollen testicles in men. How is this diagnosed? This condition may be diagnosed based on: ?? Your symptoms and medical history. ?? A physical exam. ?? Urine tests to check for blood or protein. ?? Blood tests to check for complications and to make sure there is not another cause of your illness. ?? Removing a small skin sample and examining it under a microscope (skin biopsy). ?? Kidney biopsy. How is this treated? There is no cure for this condition, but treatment can help to relieve symptoms. Treatment may include: ?? Staying in bed (bed rest). ?? Raising (elevating) affected arms and legs above the level of the heart. ?? Drinking more fluids. ?? Taking medicines to reduce inflammation and pain. These may include: ? NSAIDs to relieve aches and fever. ? Corticosteroids to lessen inflammation and relieve pain. If you have severe kidney damage, you may need medicines that reduce the activity of the immune system (immunosuppressants). Kidney failure may be treated with a process to clean the blood of wastes,salt, and extra fluid (dialysis). Follow these instructions at home: ?? Take bcfn-naj-nnukepl and prescription medicines only as told by your health care provider. ?? Follow instructions from your health care provider about activity restrictions or bed rest. ?? Raise (elevate) affected arms and legs above the level of your heart when you experience symptoms. ?? Drink enough fluid to keep your urine pale yellow. ?? Keep all follow-up visits as told by your health care provider. This is important. Contact a health care provider if: ?? Your symptoms get worse, and medicines do not help. ?? You have a little bit of blood in your urine or stool. Get help right away if: ?? You have severe abdominal pain. ?? You vomit repeatedly. ?? You have heavy bleeding in your urine or stool. ?? You are not able to urinate. ?? You have abdominal pain and are not having any bowel movements. ?? You have a seizure. ?? You have mental confusion. ?? You have chest pain. ?? You have trouble breathing or shortness of breath. Summary ?? Henoch-Schonlein purpura (HSP) is a condition that causes swelling and inflammation of small blood vessels (vasculitis). ?? An overactive disease-fighting system (immune system) causes HSP. ?? A skin rash is the most common symptom. ?? There is no cure for HSP, but treatment may help to relieve symptoms. This information is not intended to replace advice given to you by your health care provider. Make sure you discuss any questions you have with your health care provider. Document Released: 02/12/2018 Document Revised: 02/12/2018 Document Reviewed: 02/12/2018 [employer] Interactive Patient Education ?? 2019 [employer]. Type 2 Diabetes Mellitus, Self Care, Adult Caring for yourself after you have been diagnosed with type 2 diabetes (type 2 diabetes mellitus) means keeping your blood sugar (glucose) under control with a balance of: ?? Nutrition. ?? Exercise. ?? Lifestyle changes. ?? Medicines or insulin, if necessary. ?? Support from your team of health care providers and others. The following information explains what you need to know to manage your diabetes at home. What are the risks? Having diabetes can put you at risk for other long-term (chronic) conditions, such as heart diseaseand kidney disease. Your health care provider may prescribe medicines to help prevent complicationsfrom diabetes. These medicines may include: ?? Aspirin. ?? Medicine to lower cholesterol. ?? Medicine to control blood pressure. How to monitor blood glucose ?? Check your blood glucose every day, as often as told by your health care provider. ?? Have your A1c (hemoglobin A1c) level checked two or more times a year, or as often as told by your health care provider. Your health care provider will set individualized treatment goals for you. Generally, the goal of treatment is to maintain the following blood glucose levels: ?? Before meals (preprandial): 80-130 mg/dL (4.4-7.2 mmol/L). ?? After meals (postprandial): below 180 mg/dL (10 mmol/L). ?? A1c level: less than 7%. How to manage hyperglycemia and hypoglycemia Hyperglycemia symptoms Hyperglycemia, also called high blood glucose, occurs when blood glucose is too high. Make sure youknow the early signs of hyperglycemia, such as: ?? Increased thirst. ?? Hunger. ?? Feeling very tired. ?? Needing to urinate more often than usual. ?? Blurry vision. Hypoglycemia symptoms Hypoglycemia, also called low blood glucose, occurs??with a blood glucose level at or below 70 mg/dL (3.9 mmol/L). The risk for hypoglycemia increases during or after exercise, during sleep, during illness, and when skipping meals or not eating for a long time (fasting). It is important to know the symptoms of hypoglycemia and treat it right away. Always have a 36-mhanumlgd-obeire carbohydrate snack with you to treat low blood glucose. Family members and close friends should also know the symptoms and should understand how to treat hypoglycemia, in case you are not able to treat yourself. Symptoms may include: ?? Hunger. ?? Anxiety. ?? Sweating and feeling clammy. ?? Confusion. ?? Dizziness or feeling light-headed. ?? Sleepiness. ?? Nausea. ?? Increased heart rate. ?? Headache. ?? Blurry vision. ?? Irritability. ?? A change in coordination. ?? Tingling or numbness around the mouth, lips, or tongue. ?? Restless sleep. ?? Fainting. ?? Seizure. Treating hypoglycemia If you are alert and able to swallow safely, follow the 15:15 rule: ?? Take 15 grams of a rapid-acting carbohydrate. Rapid-acting options include: ? 1 tube of glucose gel. ? 3 glucose pills. ? 6-8 pieces of hard candy. ? 4 oz (120 mL) of fruit juice. ? 4 oz (120 mL) of regular (not diet) soda. ?? Check your blood glucose 15 minutes after you take the carbohydrate. ?? If the repeat blood glucose level is still at or below 70 mg/dL (3.9 mmol/L), take 15 grams of acarbohydrate again. ?? If your blood glucose level does not increase above 70 mg/dL (3.9 mmol/L) after 3 tries, seek emergency medical care. ?? After your blood glucose level returns to normal, eat a meal or a snack within 1 hour. Treating severe hypoglycemia Severe hypoglycemia is when your blood glucose level is at or below 54 mg/dL (3 mmol/L). Severe hypoglycemia is an emergency. Do not wait to see if the symptoms will go away. Get medical help right away. Call your local emergency services (911 in the [place] If you have severe hypoglycemia and you cannot eat or drink, you may need an injection of glucagon.A family member or close friend should learn how to check your blood glucose and how to give you a glucagon injection. Ask your health care provider if you need to have an emergency glucagon injection kit available. Severe hypoglycemia may need to be treated in a hospital. The treatment may include getting glucosethrough an IV. You may also need treatment for the cause of your hypoglycemia. Follow these instructions at home: Take diabetes medicines as told ?? If your health care provider prescribed insulin or diabetes medicines, take them every day. ?? Do not run out of insulin or other diabetes medicines that you take. Plan ahead so you always have these available. ?? If you use insulin, adjust your dosage based on how physically active you are and what foods youeat. Your health care provider will tell you how to adjust your dosage. Make healthy food choices The things that you eat and drink affect your blood glucose and your insulin dosage. Making good choices helps to control your diabetes and prevent other health problems. A healthy meal plan includeseating lean proteins, complex carbohydrates, fresh fruits and vegetables, low-fat dairy products, and healthy fats. Make an appointment to see a diet and accounting specialist (registered dietitian) to help you create an eating plan that is right for you. Make sure that you: ?? Follow instructions from your health care provider about eating or drinking restrictions. ?? Drink enough fluid to keep your urine pale yellow. ?? Keep a record of the carbohydrates that you eat. Do this by reading food labels and learning thestandard serving sizes of foods. ?? Follow your sick day plan whenever you cannot eat or drink as usual. Make this plan in advance with your health care provider. Stay active Exercise regularly, as told by your health care provider. This may include: ?? Stretching and doing strength exercises, such as yoga or weightlifting, 2 or more times a week. ?? Doing 150 minutes or more of moderate-intensity or vigorous-intensity exercise each week. This could be brisk walking, biking, or water aerobics. ? Spread out your activity over 3 or more days of the week. ? Do not go more than 2 days in a row without doing some kind of physical activity. When you start a new exercise or activity, work with your health care provider to adjust your insulin, medicines, or food intake as needed. Make healthy lifestyle choices ?? Do not use any tobacco products, such as cigarettes, chewing tobacco, and e- cigarettes. If you need help quitting, ask your health care provider. ?? If your health care provider says that alcohol is safe for you, limit alcohol intake to no more than 1 drink per day for non women and 2 drinks per day for men. One drink equals 12 oz of beer, 5 oz of wine, or 1?? oz of hard liquor. ?? Learn to manage stress. If you need help with this, ask your health care provider. Care for your body ?? Keep your immunizations up to date. In addition to getting vaccinations as told by your health care provider, it is recommended that you get vaccinated against the following illnesses: ? The flu (influenza). Get a flu shot every year. ? Pneumonia. ? Hepatitis B. ?? Schedule an eye exam soon after your diagnosis, and then one time every year after that. ?? Check your skin and feet every day for cuts, bruises, redness, blisters, or sores. Schedule a foot exam with your health care provider once every year. ?? [place] your teeth and gums two times a day, and floss one or more times a day. Visit your dentistone or more times every 6 months. ?? Maintain a healthy weight. General instructions ?? Take fdpj-pwi-izjhhfq and prescription medicines only as told by your health care provider. ?? Share your diabetes management plan with people in your workplace, school, and household. ?? Carry a medical alert card or wear medical alert jewelry. ?? Keep all follow-up visits as told by your health care provider. This is important. Questions to ask your health care provider ?? Do I need to meet with a rn manager? ?? Where can I find a support group for people with diabetes? Where to find more information For more information about diabetes, visit: ?? [place] [employer] (ADA): www.diabetes.org ?? [place] [employer] Educators (AADE): www.diabeteseducator.org Summary ?? Caring for yourself after you have been diagnosed with (type 2 diabetes mellitus) means keeping your blood sugar (glucose) under control with a balance of nutrition, exercise, lifestyle changes, and medicine. ?? Check your blood glucose every day, as often as told by your health care provider. ?? Having diabetes can put you at risk for other long-term (chronic) conditions, such as heart disease and kidney disease. Your health care provider may prescribe medicines to help prevent complications from diabetes. ?? Keep all follow-up visits as told by your health care provider. This is important. This information is not intended to replace advice given to you by your health care provider. Make sure you discuss any questions you have with your health care provider. Document Released: 12/15/2016 Document Revised: 03/26/2018 Document Reviewed: 09/26/2016 [employer] Patient Education ?? 2019 [employer] documented in this encounter Progress Notes * Daniela Mclean APRN - 06/10/2019 4:00 PM EDT Subjective Mirtha Mayberry is a 69 y.o. female. Ms. Mayberry presents today with c/o swelling both lower legs. 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 She is planning on leaving for vacation with her grandchildren to [facility] in [place], [place] this Thursday and wants to be checked for nephritis-she is concerned that she is having a recurrence of HSP. Leg Swelling This is a new problem. The current episode started in the past 7 days. The problem occurs daily. The problem has been unchanged. Pertinent negatives include no abdominal pain, change in bowel habit, chest pain, chills, congestion, coughing, diaphoresis, fatigue, fever, headaches, nausea, sore throat, swollen glands, urinary symptoms or vomiting. Nothing aggravates the symptoms. She has tried nothing for the symptoms. The following portions of the patient's history were reviewed and updated as appropriate: allergies, current medications, past family history, past medical history, past social history, past surgicalhistory and problem list. Allergies as of 06/10/2019 - Reviewed 06/10/2019 Allergen Reaction Noted ??? Codeine Anaphylaxis 03/18/2013 ??? Contrast dye Anaphylaxis 03/18/2013 ??? Penicillins Anaphylaxis 03/18/2013 ??? Ciprofloxacin Unknown (See Comments) 03/18/2013 Current Outpatient Medications on File Prior to Visit Medication Sig ??? aspirin 81 MG EC tablet Take 81 mg by mouth Daily. ??? azelastine (ASTELIN) 0.1 % nasal spray 2 sprays into the nostril(s) as directed by provider Daily. Use in each nostril as directed ??? betamethasone dipropionate (DIPROLENE) 0.05 % cream Apply topically to the appropriate area as directed 2 (Two) Times a Day. ??? budesonide-formoterol (SYMBICORT) 160-4.5 MCG/ACT inhaler Inhale 2 puffs 2 (Two) Times a Day. ??? Cholecalciferol (VITAMIN D3) 5000 units capsule capsule Take 5,000 Units by mouth Daily. ??? diazePAM (VALIUM) 5 MG tablet Take 1 tablet by mouth 2 (Two) Times a Day As Needed for Anxiety. ??? DILT-XR 120 MG 24 hr capsule TAKE 1 CAPSULE BY MOUTH EVERY DAY ??? diltiaZEM SR (CARDIZEM SR) 120 MG 12 hr capsule Take 1 capsule by mouth Daily. ??? fluticasone (FLONASE) 50 MCG/ACT nasal spray 2 sprays into the nostril(s) as directed by provider Daily. ??? glipiZIDE (GLUCOTROL) 5 MG tablet Take 1 tablet by mouth 2 (Two) Times a Day Before Meals. ??? levalbuterol (XOPENEX HFA) 45 MCG/ACT inhaler Inhale 1-2 puffs Every 4 (Four) Hours As Needed for Wheezing. ??? olmesartan (BENICAR) 20 MG tablet Take 1 tablet by mouth Daily. ??? omeprazole (priLOSEC) 20 MG capsule Take 1 capsule by mouth Daily. ??? predniSONE (DELTASONE) 10 MG tablet Take 2 tablets by mouth Daily. ??? rosuvastatin (CRESTOR) 10 MG tablet Take 1 tablet by mouth Every Night. ??? triamterene-hydrochlorothiazide (MAXZIDE-25) 37.5-25 MG per tablet Take 1 tablet by mouth Daily. ??? venlafaxine XR (EFFEXOR-XR) 75 MG 24 hr capsule Take 1 capsule by mouth Daily. Current Facility-Administered Medications on File Prior to Visit Medication ??? cyanocobalamin injection 1,000 mcg Review of Systems Constitutional: Negative for activity change, appetite change, chills, diaphoresis, fatigue and fever. HENT: Negative. Negative for congestion and sore throat. Respiratory: Negative. Negative for cough, choking, chest tightness, shortness of breath, wheezing and stridor. Cardiovascular: Positive for leg swelling. Negative for chest pain and palpitations. Gastrointestinal: Negative for abdominal pain, change in bowel habit, diarrhea, nausea and vomiting. Genitourinary: Negative. Musculoskeletal: Negative. Skin: Positive for color change (mild redness RLE). Neurological: Negative. Negative for headaches. Objective Physical Exam Constitutional: She is oriented to person, place, and time. Vital signs are normal. She appears well-developed and well-nourished. She is cooperative. She does not appear ill. No distress. Morbidly obese HENT: Right Ear: Tympanic membrane normal. Left Ear: Tympanic membrane normal. Mouth/Throat: Uvula is midline and mucous membranes are normal. Cardiovascular: Normal rate, regular rhythm and normal heart sounds. Pulmonary/Chest: Effort normal and breath sounds normal. Musculoskeletal: Right lower leg: She exhibits tenderness and edema (2+ pitting edema with erythematous patch just above right ankle. ). Left lower leg: She exhibits swelling (mild, non-pitting edema). She exhibits no tenderness. Neurological: She is alert and oriented to person, place, and time. Skin: Skin is warm, dry and intact. Purpura (few purpura left foot (patient states she has had these for a long time)) and rash noted. She is not diaphoretic. Psychiatric: She has a normal mood and affect. Her behavior is normal. Judgment and thought contentnormal. Vitals reviewed. Vitals: 06/10/19 1629 BP: 128/84 Pulse: 77 Resp: 22 Temp: 96.7 ??F (35.9 ??C) SpO2: 95% Body mass index is 53.85 kg/m??. Assessment/Plan Mirtha was seen today for leg swelling. Diagnoses and all orders for this visit: Edema, unspecified type - Cancel: POC Urinalysis Dipstick, Automated HSP (Henoch Schonlein purpura) ([facility]) - Cancel: POC Urinalysis Dipstick, Automated *Patient unable to void Type 2 diabetes mellitus without complication, without long-term current use of insulin ([facility]) - POC Glycosylated Hemoglobin (Hb A1C) * POC HbA1C 7.4 *Consulted with Dr. Bello regarding patient edema and history of HSP and patient examined by him. Recommended patient go to ER for evaluation possible DVT. Patient advised to go to ER for further evaluation and diagnostic testing. Patient declined to go at this time. Discussed risks associated with DVT and encouraged patient to go to [facility]. Patientstates that she wishes to wait until tomorrow and go to [place] ER. Discussed the nature of the medical condition(s) risks, complications, implications, management, safe and proper use of medications. Encouraged medication compliance, and keeping scheduled follow up appointments with me and any other providers. documented in this encounter Plan of Treatment Not on file documented as of this encounter Procedures Procedure Name Priority Date/Time Associated Diagnosis Comments POCT GLYCOSYLATED HEMOGLOBIN (HGB A1C) Routine 06/10/2019 5:36 PM EDT Type 2 diabetes mellitus without complication, without long-term current use of insulin documented in this encounter Results * POC Glycosylated Hemoglobin (Hb A1C) (06/10/2019 5:36 PM EDT) Hemoglobin A1C 7.4 % [facility] Blood 06/10/2019 5:36 PM EDT us Daniela Mclean BAND SINGER POINT OF CARE TEST ORDERABL ES Final Result [facility]
[address] [place] [address], documented in this encounter Visit Diagnoses Diagnosis Edema, unspecified type- Primary HSP (Henoch Schonlein purpura) Allergic purpura Type 2 diabetes mellitus without complication, without long-term current use of insulin documented in this encounter Care Teams Data Power Consultant Relationship Specialty Start Date End Date Huber Grossman MD PCP - General Family Medicine 02/08/18 09/28/19 documented as of this encounter
--- OUTSIDE RECORDS SUMMARY | 2024-08-02 15:10 | XMS_ITS | Encounter Summary ---
[facility] [address] [place] [address] Care Team Providers Care Railcar Foreman Name Role Phone Huber Grossman MD Primary Care Provider Barbara valladares Encounter Details Date Type Department Care Team (Late st Contact Info) Description 11/03/2018 Telephone [facility] [phone] Remigio Morton MA Social History Tobacco Use Types Packs/Day Years [...] Telephone Encounter - Remigio Morton MA - 11/03/2018 4:56 PM EST Informed pharmacyViolet DICK ----- Message from Huber Grossman MD sent at 11/03/2018 2:26 PM EST ----- Regarding: RE: PHARMACY Ok please change ----- Message ----- From: Remigio Morton MA Sent: 11/03/2018 1:32 PM To: Huber Grossman MD Subject: FW: PHARMACY Pt had a question about medication Dilitiazem SR 120 mg 12hr capsules. She said that she is supposed to take the ER 24hr capsule. ----- Message ----- From: Mindy Desouza RegSched Rep Sent: 11/02/2018 2:35 PM To: Remigio Morton MA Subject: PHARMACY PLEASE CALL PHARMACY ABOUT PRESCRIPTION documented in this encounter Plan of Treatment Not on file documented as of this encounter Visit Diagnoses Not on filedocumented in this encounter Care Teams Railcar Foreman Relationship Specialty Start Date End Date Huber Grossman MD PCP - General Family Medicine 02/08/18 09/28/19 documented as of this encounter
--- OUTSIDE RECORDS SUMMARY | 2024-08-02 15:10 | XMS_ITS | Encounter Summary ---
[facility] Address [address] [place] [address] Care Team Providers Care Emergency Crew Supervisor Name Role Phone Dano Romero MD Primary Care Provider [phone] Reason for Visit * Reason Onset Date Comments Med Refill 11/16/2018 Encounter Details Date Type Department Care Team (Late st Contact Info) Description 11/16/2018 Refill [facility] [address] [phone] Huber Grossman MD Social History Tobacco Use [...] documented as of this encounter Care Teams Emergency Crew Supervisor Relationship Specialty Start Date End Date Dano Romero MD [address] [place] [address] PCP - General Internal Medicine 09/29/19 documented as of this encounter
--- OUTSIDE RECORDS SUMMARY | 2024-08-02 15:10 | XMS_ITS | Encounter Summary ---
[facility] [address] [place] [address] Care Team Providers Care Mutual Funds Agent Name Role Phone Huber Grossman MD Primary Care Provider Barbara valladares Encounter Details Date Type Department Care Team (Late st Contact Info) Description 04/04/2019 Telephone [facility] [address] [place] [phone] Remigio Morton MA Social History Tobacco [...] Telephone Encounter - Remigio Morton MA - 04/04/2019 1:57 PM EDT Informed pt and resent Rx to correct pharmacyViolet DICK ----- Message from Huber Grossman MD sent at 03/31/2019 5:37 PM EDT ----- Regarding: RE: PLEASE CALL Contact: Maintain at 20 mg qd till next visit ----- Message ----- From: Remigio Morton MA Sent: 03/31/2019 12:38 PM To: Huber Grossman MD Subject: FW: PLEASE CALL The pediatrist says that you stepped her down too quickly and it might impact her kidneys. To maintain for a while and f/u on UA. She would like for you to give her a call so she can explain more. [facility] [place] ----- Message ----- From: Marah Hughes Sent: 03/31/2019 8:04 AM To: Remigio Morton MA Subject: PLEASE CALL PT STATES THAT SHE WANTED TO SPEAK TO DR GROSSMAN ABOUT HSP DIAGNOSIS. documented in this encounter Plan of Treatment Not on file documented as of this encounter Visit Diagnoses Not on filedocumented in this encounter Care Teams Mutual Funds Agent Relationship Specialty Start Date End Date Huber Grossman MD PCP - General Family Medicine 02/08/18 09/28/19 documented as of this encounter
--- OUTSIDE RECORDS SUMMARY | 2024-08-02 15:10 | XMS_ITS | Encounter Summary ---
[facility] [address] [place] [address] Care Team Providers Care Geological Drafter Name Role Phone Huber Grossman MD Primary Care Provider Barbara valladares Encounter Details Date Type Department Care Team (Late st Contact Info) Description 10/12/2018 Telephone [facility] [address] [place] [phone] Remigio Morton MA Social History Tobacco [...] Telephone Encounter - Remigio Morton MA - 10/12/2018 11:57 AM EST Informed pt she verbalized understanding. Triston DICK ----- Message from Yumiko Santos sent at 10/12/2018 9:08 AM EST ----- Regarding: RE: REFERRAL STAFF AUDITOR Contact: She is going to be waiting, this is normal for pulmonary ----- Message ----- From: Remigio Morton MA Sent: 10/12/2018 8:54 AM To: Yumiko Santos Subject: FW: REFERRAL STAFF AUDITOR ----- Message ----- From: Huber Grossman MD Sent: 10/11/2018 5:18 PM To: Remigio Morton MA Subject: RE: REFERRAL STAFF AUDITOR Order placed check with Yumiko ----- Message ----- From: Remigio Morton MA Sent: 10/11/2018 12:32 PM To: Huber Grossman MD Subject: FW: REFERRAL STAFF AUDITOR ----- Message ----- From: Gabi Forde RegSched Rep Sent: 10/11/2018 12:17 PM To: Remigio Morton MA Subject: REFERRAL STAFF AUDITOR PT IS STILL WAITING ON A REFERRAL FOR A STAFF AUDITOR, PLEASE CALL SHE HAS BEEN WAITING FOR A WEEK OR SO documented in this encounter Plan of Treatment Not on file documented as of this encounter Visit Diagnoses Not on filedocumented in this encounter Care Teams Geological Drafter Relationship Specialty Start Date End Date Huber Grossman MD PCP - General Family Medicine 02/08/18 09/28/19 documented as of this encounter
--- OUTSIDE RECORDS SUMMARY | 2024-08-02 15:10 | XMS_ITS | Encounter Summary ---
[facility] [address] [place] [address] Care Team Providers Care Rn Wound Care Name Role Phone Dano Romero MD Primary Care Provider [phone] Encounter Details Date Type Department Care Team (Late st Contact Info) Description 08/01/2019 Telephone [facility] MED[facility] [address] [place] [phone] Huber Grossman MD Social History Tobacco [...] documented as of this encounter Care Teams Rn Wound Care Relationship Specialty Start Date End Date Dano Romero MD [address] [place] [id number] PCP - General Internal Medicine 09/29/19 documented as of this encounter
--- OUTSIDE RECORDS SUMMARY | 2024-08-02 15:10 | XMS_ITS | Encounter Summary ---
[facility] [address] [place] [address] Care Team Providers Care Painter Chassis Name Role Phone Huber Grossman MD Primary Care Provider Barbara valladares Encounter Details Date Type Department Care Team (Late st Contact Info) Description 07/25/2019 Telephone [facility]IC[facility] [address] [phone] Huber Grossman MD Social History Tobacco Use Types Packs/Day Years Used Date Smoking Tobacco: Former Smokeless Tobacco: Never Alcohol Use Standard Drinks/Week Comments No 0 (1 standard drink = 0.6 oz pur e alcohol) PHQ-2 Answer Date Recorded PHQ-2 Score 08/17/2018 Comments No Sex and Gender Information Value Date Recorded Sex Assigned at Not on file Legal Sex Female 12:36 PM EDT Gender Identity Not on file Sexual Orientation Not on file documented as of this encounter Miscellaneous Notes * Telephone Encounter - Macarena Jones - 07/26/2019 1:24 PM EST Pt called back today stating she now has diarrhea and is worried that it could be an intestinal infection. Pt states she was feeling better when last talked but has had diarrhea today but not other symptoms. Pt would like someone to call her and discuss this with her at some point today. * Telephone Encounter - Huber Grossman MD - 07/25/2019 4:04 PM EST Patient was notified of abnormal urine culture she does however feel better after taking a few doses of Bactrim and Zithromax. I recommended repeat urinalysis and culture which [facility] she will come back here this week. May need to consider infectious disease referral due to her multiple allergies and is fairly resistant organism. She develops a high fever or increasing urinary symptoms she will go to the emergency room for further evaluation. documented in this encounter Plan of Treatment Not on file documented as of this encounter Visit Diagnoses Not on filedocumented in this encounter Care Teams Painter Chassis Relationship Specialty Start Date End Date Huber Grossman MD PCP - General Family Medicine 02/08/18 09/28/19 documented as of this encounter
--- OUTSIDE RECORDS SUMMARY | 2024-08-02 15:10 | XMS_ITS | Encounter Summary ---
[facility] [address] [place] [address] Care Team Providers Care Clinical Social Work Therapist Name Role Phone Huber Grossman MD Primary Care Provider Barbara valladares Reason for Visit * Reason Onset Date Comments Ngoc- Message 07/27/2019 Encounter Details Date Type Department Care Team (Late st Contact Info) Description 07/27/2019 Telephone [facility]IC[facility] [address] [phone] Huber Grossman MD Halbert- Message Social History Tobacco Use Types Packs/Day Years [...] Telephone Encounter - Remigio Morton MA - 07/28/2019 12:42 PM EST Order has been faxed. * Telephone Encounter - Huber Grossman MD - 07/27/2019 3:11 PM EST Urine? * Telephone Encounter - Remigio Morton MA - 07/27/2019 2:34 PM EST Please advise * Telephone Encounter - Guille Nicole RegSched Rep - 07/27/2019 11:39 AM EST Patient called to report that she needs a order for a blood culture test to be sent to: [facility]. documented in this encounter Plan of Treatment Not on file documented as of this encounter Visit Diagnoses Not on filedocumented in this encounter Care Teams Clinical Social Work Therapist Relationship Specialty Start Date End Date Huber Grossman MD PCP - General Family Medicine 02/08/18 09/28/19 documented as of this encounter
--- OUTSIDE RECORDS SUMMARY | 2024-08-02 15:10 | XMS_ITS | Encounter Summary ---
Author Organization [facility] Address [address] [place] [address] Care Team Providers Care Sugar Chipper Machine Operator Name Role Phone Huber Grossman MD Primary Care Provider Barbara valladares Reason for Visit * Reason Comments Hypoxia follow up to sleep cora hughes completed Encounter Details Date Type Department Care Team (Late st Contact Info) Description 06/21/2019 10:45 AM EDT Office Visit [facility] PUL[facility]ICAL [facility] MEDICINE [address] [place] [phone] Luis Galvan MD [address] [place] [address] DELL (Primary Dx); Super obesity (BMI > 50); Obesity hypoventilation syndrome; H/O Asthma; GERD Social History Tobacco Use Types Packs/Day Years [...] Sign Reading Time Taken Comments Blood Pressure 128/78 06/21/2019 10:51 AM EDT Pulse 93 06/21/2019 10:51 AM EDT Temperature - - Respiratory Rate 16 06/21/2019 10:51 AM EDT Oxygen Saturation 97% 06/21/2019 10:51 AM EDT RA Inhaled Oxygen Concentration - - Weight 134 kg (296 lb) 06/21/2019 10:51 AM EDT Height 154.9 cm (5' 1 ) 06/21/2019 10:51 AM EDT Body Mass Index 55.93 06/21/2019 10:51 AM EDT documented in this encounter Progress Notes * Luis Galvan MD - 06/21/2019 10:45 AM EDT PULMONARY NOTE Chief Complaint DELL, superobesity, history of asthma, reflux/Mukherjee's esophagus, perennial rhinitis History of Present Illness 69-year-old white female returns today for follow-up. She was last seen in the office on December 08, 2018. Since that time she underwent a sleep study. She was found to have significant obstructive sleep apnea. CPAP therapy as well as oral device or surgical intervention was recommended. Since I last saw her she underwent a left cataract extraction without difficulty. Also since I last saw her she had an outbreak of HSP and was treated with a course of steroids. She has a history of asthma but no evidence of airway obstruction on prior spirometry. She previously had been on Symbicort with Xopenex on an as-needed basis. She stopped her Symbicort about 3 months ago and does not feel that there is been any change. Specifically, she has had no increased dyspnea or wheezing. She has been followed in the past by Dr. Zena Carey at [facility] for perennial rhinitis. She continues to use a nasal spray. She is super morbidly obese with a BMI of greater than 55. Her weight has increased by 3 pounds from her last visit. Patient Active Problem List Diagnosis ??? Edema, peripheral ??? Anxiety, generalized ??? HLD (hyperlipidemia) ??? Essential hypertension ??? Laryngeal spasm ??? Vertigo ??? Type 2 diabetes mellitus without complication, without long-term current use of insulin (CMS/HCC) ??? H/O Asthma ??? Perennial rhinitis ??? GERD ??? Mukherjee esophagus ??? DELL ??? Obesity hypoventilation syndrome (CMS/HCC) ??? B12 deficiency ? ? Super obesity (BMI > 50) Allergies Allergen Reactions ??? Codeine Anaphylaxis ??? Contrast Dye Anaphylaxis ??? Penicillins Anaphylaxis ??? Ciprofloxacin Unknown (See Comments) Current Outpatient Medications: ??? aspirin 81 MG EC tablet, Take 81 mg by mouth Daily., Disp: , Rfl: ??? azelastine (ASTELIN) 0.1 % nasal spray, 2 sprays into the nostril(s) as directed by provider Daily. Use in each nostril as directed, Disp: 30 mL, Rfl: 5 ??? betamethasone dipropionate (DIPROLENE) 0.05 % cream, Apply topically to the appropriate area asdirected 2 (Two) Times a Day., Disp: 45 g, Rfl: 0 ??? budesonide-formoterol (SYMBICORT) 160-4.5 MCG/ACT inhaler, Inhale 2 puffs 2 (Two) Times a Day.,Disp: 3 inhaler, Rfl: 3 ??? Cholecalciferol (VITAMIN D3) 5000 units capsule capsule, Take 5,000 Units by mouth Daily., Disp: , Rfl: ??? diazePAM (VALIUM) 5 MG tablet, Take 1 tablet by mouth 2 (Two) Times a Day As Needed for Anxiety., Disp: 30 tablet, Rfl: 1 ??? DILT-XR 120 MG 24 hr capsule, TAKE 1 CAPSULE BY MOUTH EVERY DAY, Disp: 90 capsule, Rfl: 1 ??? diltiaZEM SR (CARDIZEM SR) 120 MG 12 hr capsule, Take 1 capsule by mouth Daily., Disp: 90 capsule, Rfl: 1 ??? fluticasone (FLONASE) 50 MCG/ACT nasal spray, 2 sprays into the nostril(s) as directed by provider Daily., Disp: 3 bottle, Rfl: 1 ??? glipiZIDE (GLUCOTROL) 5 MG tablet, Take 1 tablet by mouth 2 (Two) Times a Day Before Meals., Disp: 180 tablet, Rfl: 1 ??? levalbuterol (XOPENEX HFA) 45 MCG/ACT inhaler, Inhale 1-2 puffs Every 4 (Four) Hours As Needed for Wheezing., Disp: , Rfl: ??? olmesartan (BENICAR) 20 MG tablet, Take 1 tablet by mouth Daily., Disp: 90 tablet, Rfl: 1 ??? omeprazole (priLOSEC) 20 MG capsule, Take 1 capsule by mouth Daily., Disp: 90 capsule, Rfl: 1 ??? rosuvastatin (CRESTOR) 10 MG tablet, Take 1 tablet by mouth Every Night., Disp: 90 tablet, Rfl:1 ??? triamterene-hydrochlorothiazide (MAXZIDE-25) 37.5-25 MG per tablet, Take 1 tablet by mouth Daily., Disp: 30 tablet, Rfl: 1 ??? venlafaxine XR (EFFEXOR-XR) 75 MG 24 hr capsule, Take 1 capsule by mouth Daily., Disp: 90 capsule, Rfl: 1 Current Facility-Administered Medications: ??? cyanocobalamin injection 1,000 mcg, 1,000 mcg, Intramuscular, Q28 Days, Huber Grossman MD, 1,000 mcg at 12/21/18 1043 MEDICATION LIST AND ALLERGIES REVIEWED. Family History Problem Relation Age of Onset ??? Stroke Mother ??? Alzheimer's disease Mother ??? Alzheimer's disease Paternal Aunt ??? Heart failure Father ??? Heart failure Paternal Grandfather ??? Breast cancer Neg Hx ??? Ovarian cancer Neg Hx Social History Tobacco Use ??? Smoking status: Former Smoker ??? Smokeless tobacco: Never Used Substance Use Topics ??? Alcohol use: No ??? Drug use: No Social History Social History Narrative ??? Not on file FAMILY AND SOCIAL HISTORY REVIEWED. Review of Systems ALSO REFER TO SCANNED ROS SHEET FROM SAME DATE. BP 128/78 Pulse 93 Resp 16 Ht 154.9 cm (61 ) Wt 134 kg (296 lb) SpO2 97% Comment: RA ? No BMI 55.93 kg/m?? Physical Exam Constitutional: She is oriented to person, place, and time. She appears well- developed. No distress. HENT: Head: Normocephalic and atraumatic. Neck: No thyromegaly present. Cardiovascular: Normal rate, regular rhythm and normal heart sounds. No murmur heard. Pulmonary/Chest: Effort normal. No stridor. Decreased breath sounds bilaterally without wheezes Abdominal: Soft. Bowel sounds are normal. Musculoskeletal: Normal range of motion. She exhibits no edema. Lymphadenopathy: She has no cervical adenopathy. Right: No supraclavicular and no epitrochlear adenopathy present. Left: No supraclavicular and no epitrochlear adenopathy present. Neurological: She is alert and oriented to person, place, and time. Skin: Skin is warm and dry. She is not diaphoretic. Psychiatric: She has a normal mood and affect. Her behavior is normal. Nursing note and vitals reviewed. Results Sleep apnea study reviewed. Obstructive sleep apnea documented Problem List ICD-10-CM ICD-9-CM 1. DELL G47.33 327.23 2. Super obesity (BMI > 50) E66.9 278.00 3. Obesity hypoventilation syndrome (CMS/[facility]) E66.2 278.03 4. H/O Asthma J45.909 493.90 5. GERD K21.9 530.81 Discussion We discussed her sleep study report. I recommend initiating CPAP 8 with a nasal device, probably nasal pillows. She may need a chinstrap. Ultimately, she may need a titration study. I recommended efforts at regular exercise and weight loss. As long she continues to do well off of Symbicort, I would not restart any asthma therapy without further documentation of underlying asthma. She is going to continue to use OTC nasal medications. I will plan to see her back in a month or 2 after initiation of her CPAP. Luis Galvan MD Note electronically signed CC: Huber Grossman MD documented in this encounter Plan of Treatment Not on file documented as of this encounter Visit Diagnoses Diagnosis DELL- Primary Obstructive sleep apnea (adult) (pediatric) Super obesity (BMI > 50) Obesity hypoventilation syndrome H/O Asthma GERD documented in this encounter Care Teams Sugar Chipper Machine Operator Relationship Specialty Start Date End Date Huber Grossman MD PCP - General Family Medicine 02/08/18 09/28/19 documented as of this encounter
--- OUTSIDE RECORDS SUMMARY | 2024-08-02 15:10 | XMS_ITS | Encounter Summary ---
Author Organization [facility] Address [address] [place] [address] Care Team Providers Care Assistant Mechanic Name Role Phone Huber Grossman MD Primary Care Provider Barbara valladares Encounter Details Date Type Department Care Team (Late st Contact Info) Description 04/20/2019 Telephone [facility] FAMILY MEDICINE [address] [place] [phone] Remigio Morton MA Social History Tobacco [...] Telephone Encounter - Remigio Morton MA - 04/20/2019 12:36 PM EDT Refilled Rx called informed pt. Triston DICK ----- Message from Luis Felipe Pino sent at 04/20/2019 10:02 AM EDT ----- Regarding: AMEPRESOLE/REFLUX MED Contact: PLEASE SEND TO [facility] IN [place], PLEASE CALL HER documented in this encounter Plan of Treatment Not on file documented as of this encounter Visit Diagnoses Not on filedocumented in this encounter Care Teams Assistant Mechanic Relationship Specialty Start Date End Date Huber Grossman MD PCP - General Family Medicine 02/08/18 09/28/19 documented as of this encounter
--- OUTSIDE RECORDS SUMMARY | 2024-08-02 15:10 | XMS_ITS | Encounter Summary ---
Author Organization [facility] Address [address] [place] [address] Care Team Providers Care Vice President Medical Affairs Name Role Phone Huber Grossman MD Primary Care Provider Barbara valladares Encounter Details Date Type Department Care Team (Late st Contact Info) Description 09/21/2018 Telephone [facility] FAMILY MEDICINE [address] [place] [phone] Remigio Morton MA Social History Tobacco [...] Telephone Encounter - Remigio Morton MA - 09/21/2018 11:09 AM EST Resent Rx, called informed pt. Triston DICK ----- Message from Luis Felipe Matute sent at 09/21/2018 9:20 AM EST ----- Regarding: DIAZEPAM Contact: PT SAYS HER DIAZEPAM IS NOT AT THE [facility] IN [place]. PLEASE CHECK ON THIS documented in this encounter Plan of Treatment Not on file documented as of this encounter Visit Diagnoses Not on filedocumented in this encounter Care Teams Vice President Medical Affairs Relationship Specialty Start Date End Date Huber Grossman MD PCP - General Family Medicine 02/08/18 09/28/19 documented as of this encounter
--- OUTSIDE RECORDS SUMMARY | 2024-08-02 15:10 | XMS_ITS | Encounter Summary ---
Author Organization [facility] Address [address] [place] [address] Care Team Providers Care Soup Person Name Role Phone Huber Grossman MD Primary Care Provider Barbara valladares Reason for Visit * Reason Onset Date Comments Med Refill 04/04/2019 Encounter Details Date Type Department Care Team (Late st Contact Info) Description 04/04/2019 Refill [facility] FAMILY MEDICINE [address] [facility] [address] [place] [phone] Remigio Morton MA Social History Tobacco Use [...] on filedocumented in this encounter Care Teams Soup Person Relationship Specialty Start Date End Date Huber Grossman MD PCP - General Family Medicine 02/08/18 09/28/19 documented as of this encounter
--- OUTSIDE RECORDS SUMMARY | 2024-08-02 15:10 | XMS_ITS | Encounter Summary ---
Author Organization [facility] Address [address] [place] [address] Care Team Providers Care Selling Manager Name Role Phone Huber Grossman MD Primary Care Provider Barbara valladares Reason for Visit * Reason Comments Med Refill Encounter Details Date Type Department Care Team (Late st Contact Info) Description 04/14/2019 Refill [facility] MEDICINE [address] [facility] [address] [place] [phone] Huber Grossman MD Social History Tobacco Use [...] on filedocumented in this encounter Care Teams Selling Manager Relationship Specialty Start Date End Date Hbuer Grossman MD PCP - General Family Medicine 02/08/18 09/28/19 documented as of this encounter
--- OUTSIDE RECORDS SUMMARY | 2024-08-02 15:10 | XMS_ITS | Encounter Summary ---
[facility] Address [address] [place] [address] Care Team Providers Care Epic Cadence Analyst Name Role Phone Huber Grossman MD Primary Care Provider Barbara valladares Reason for Visit * Reason Comments Diabetes 3 month f/u Hyperlipidemia Hypertension med RF B12 Deficiency Depression med RF Encounter Details Date Type Department Care Team (Late st Contact Info) Description 03/25/2019 10:00 AM EDT Office Visit [facility] [phone] Huber Grossman MD Type 2 diabetes mellitus with chronic kidney disease, without long-term current use of insulin, unspecified CKD stage (Primary Dx); Essential hypertension; Familial hypercholesterolemia; Purpura Social History Tobacco Use Types Packs/Day Years [...] Reading Time Taken Comments Blood Pressure 128/84 03/25/2019 10:03 AM EDT Pulse 77 03/25/2019 10:03 AM EDT Temperature - - Respiratory Rate 16 03/25/2019 10:03 AM EDT Oxygen Saturation 94% 03/25/2019 10:03 AM EDT Inhaled Oxygen Concentration - - Weight 127 kg (279 lb 12.8 oz) 03/25/2019 10:03 AM EDT Height 156.2 cm (5' 1.5 ) 03/25/2019 10:03 AM ED T Body Mass Index 52.01 03/25/2019 10:03 AM EDT documented in this encounter Progress Notes * Huber Grossman MD - 03/25/2019 10:00 AM EDT Subjective Mirtha Mayberry is a 69 y.o. female. Diabetes She presents for her follow-up (doing much better on diet) diabetic visit. She has type 2 diabetes mellitus. Her disease course has been improving. Hypoglycemia symptoms include nervousness/anxiousness. Pertinent negatives for hypoglycemia include no dizziness or headaches. Associated symptoms include polyuria. Pertinent negatives for diabetes include no chest pain, no fatigue, no polydipsia, no polyphagia, no weakness and no weight loss. There are no hypoglycemic complications. Symptoms are stable. Risk factors for coronary artery disease include obesity, sedentary lifestyle, post-[place] tobacco exposure. Current diabetic treatment includes oral agent (monotherapy). She is compliant with treatment some of the time. Her weight is stable. She participates in exercise intermittently. An CHAS inhibitor/angiotensin II receptor shefali is being taken. Eye exam is current. Hyperlipidemia This is a chronic problem. The current episode started more than 1 year ago. The problem is controlled. Associated symptoms include shortness of breath. Pertinent negatives include no chest pain or myalgias. Current antihyperlipidemic treatment includes statins and diet change. Risk factors for coronary artery disease include diabetes mellitus, dyslipidemia, obesity, post- menopausal and a sedentary lifestyle. Hypertension This is a chronic problem. The problem is unchanged. The problem is controlled. Associated symptomsinclude shortness of breath. Pertinent negatives include no chest pain, headaches or palpitations. Risk factors for coronary artery disease include obesity, post-menopausal state, dyslipidemia and diabetes mellitus. Current antihypertension treatment includes angiotensin blockers, calcium channel blockers and lifestyle changes. The current treatment provides significant improvement. Compliance problems include exercise. Depression Visit Type: follow-up Patient presents with the following symptoms: depressed mood, nervousness/anxiety and shortness of breath. Patient is not experiencing: feelings of hopelessness, palpitations, panic and weight loss. Frequency of symptoms: occasionally Severity: moderate Sleep quality: fair Nighttime awakenings: occasional Rash This is a recurrent (history of hsp) problem. The current episode started in the past 7 days. The problem has been gradually worsening since onset. The affected locations include the left lower leg and right lower leg. The rash is characterized by redness. Associated symptoms include shortness of breath. Pertinent negatives include no diarrhea, eye pain, fatigue or vomiting. Past treatments include moisturizer. The treatment provided no relief. The following portions of the patient's history were reviewed and updated as appropriate: allergies, current medications, past social history and problem list. Review of Systems Constitutional: Negative for activity change, appetite change, diaphoresis, fatigue, unexpected weight change and weight loss. Eyes: Negative for pain and visual disturbance. Respiratory: Positive for shortness of breath. Negative for chest tightness. Cardiovascular: Negative for chest pain, palpitations and leg swelling. Gastrointestinal: Negative for diarrhea, nausea and vomiting. Endocrine: Positive for polyuria. Negative for polydipsia and polyphagia. Genitourinary: Negative for dysuria and hematuria. Musculoskeletal: Negative for myalgias. Skin: Positive for rash. Negative for color change. Neurological: Negative for dizziness, syncope, weakness, light-headedness, numbness and headaches. Psychiatric/Behavioral: The patient is nervous/anxious. Mood is some better Objective BP 128/84 Pulse 77 Resp 16 Ht 156.2 cm (61.5 ) Wt 127 kg (279 lb 12.8 oz) SpO2 94% BMI 52.01 kg/m?? Physical Exam Constitutional: She is oriented to person, place, and time. She appears well- developed and well-nourished. She is cooperative. HENT: Head: Normocephalic. Right Ear: External ear normal. Left Ear: External ear normal. Nose: Nose normal. Mouth/Throat: Oropharynx is clear and moist. Eyes: Conjunctivae are normal. Pupils are equal, round, and reactive to light. No scleral icterus. Neck: Neck supple. Carotid bruit is not present. No thyromegaly present. Cardiovascular: Normal rate, regular rhythm and normal heart sounds. Pulmonary/Chest: Effort normal and breath sounds normal. Abdominal: There is no hepatosplenomegaly. Musculoskeletal: Normal range of motion. She exhibits no edema. Neurological: She is alert and oriented to person, place, and time. No focal deficits no lateralizing signs Skin: Skin is warm and dry. Rash noted. There is erythema. Petechial rash on both lower legs and on the instep of the right foot Psychiatric: She has a normal mood and affect. Cognition and memory are normal. Nursing note and vitals reviewed. Assessment/Plan Problem List Items Addressed This Visit Active Problems HLD (hyperlipidemia) Relevant Orders Comprehensive Metabolic Panel (Completed) Lipid Panel (Completed) TSH (Completed) Essential hypertension Relevant Medications olmesartan (BENICAR) 20 MG tablet Other Relevant Orders Comprehensive Metabolic Panel (Completed) Diabetes mellitus (CMS/HCC) - Primary Relevant Orders POC Glycosylated Hemoglobin (Hb A1C) (Completed) TSH (Completed) Other Visit Diagnoses Purpura (CMS/HCC) Relevant Medications betamethasone dipropionate (DIPROLENE) 0.05 % cream Other Relevant Orders POC CBC (Completed) Sedimentation Rate (Completed) New Medications Ordered This Visit Medications ??? olmesartan (BENICAR) 20 MG tablet Sig: Take 1 tablet by mouth Daily. Dispense: 90 tablet Refill: 1 ??? venlafaxine XR (EFFEXOR-XR) 75 MG 24 hr capsule Sig: Take 1 capsule by mouth Daily. Dispense: 90 capsule Refill: 1 ??? betamethasone dipropionate (DIPROLENE) 0.05 % cream Sig: Apply topically to the appropriate area as directed 2 (Two) Times a Day. Dispense: 45 g Refill: 0 ??? predniSONE (DELTASONE) 10 MG tablet Si,4,3,3,3,2,2,1,1 Dispense: 25 tablet Refill: 0 May need rheum or derm eval if not improving platlets ok today will check urine on rtc documented in this encounter Plan of Treatment Not on file documented as of this encounter Procedures Procedure Name Priority Date/Time Associated Diagnosis Comments POCT CBC Routine 03/25/2019 10:40 AM EDT Purpura SEDIMENTATION RATE Routine 03/25/2019 10:33 AM EDT Purpura TSH Routine 03/25/2019 10:33 AM EDT Type 2 diabetes mellitus with chronic kidney disease, without long-term current use of insulin, unspecified CKD stage Familial hypercholesterolemia LIPID PANEL Routine 03/25/2019 10:33 AM EDT Familial hypercholesterolemia COMPREHENSIVE METABOLIC PANEL Routine 03/25/2019 10:33 AM EDT Essential hypertension Familial hypercholesterolemia POCT GLYCOSYLATED HEMOGLOBIN (HGB A1C) Routine 03/25/2019 10:18 AM EDT Type 2 diabetes mellitus with chronic kidney disease, without long-term current use of insulin, unspecified CKD stage SCANNED - LABS 03/25/2019 documented in this encounter Results * POC CBC (03/25/2019 10:40 AM EDT) Hematocrit 43.4 38 - 51 % [facility] Hemoglobin 14.6 12.0 - 17.0 g/dL [facility] RBC 4.67 [facility] WBC 9.8 [facility] MCV 93.0 [facility] MCH 31.3 [facility] MCHC 33.6 [facility] RDW-CV 12.7 [facility] Platelets 262 10*3/mm3 [facility] MPV 8.0 [facility] Blood 03/25/2019 10:4 0 AM EDT Huber Grossman MD POINT OF CARE TEST ORDERABLES Final Result [facility]
[address] [place] [address], * Sedimentation Rate (03/25/2019 10:33 AM EDT) Sed Rate 23 0 - 30 mm/hr 03/25/2019 7:53 PM EDT [facility] Blood Left upper arm structure / Unknown Venipuncture / Unknown 03/25/2019 10:33 AM EDT 03/25/2019 10:33 AM EDT Huber Grossman MD LAB BLOOD ORDERABLES Final Re sult [facility]
[address] [place] [address], * (ABNORMAL) TSH (03/25/2019 10:33 AM EDT) TSH 5.010(H) 0.270 - 4.200 mIU/mL 03/25/2019 6:54 PM EDT [facility] Blood Left upper arm structure / Unknown Venipuncture / Unknown 03/25/2019 10:33 AM EDT 03/25/2019 10:33 AM EDT Huber Grossman MD LAB BLOOD ORDERABLES Final Re sult Performing Organization Address City/[facility] Co de Phone Number [facility]
[address] [place] [address], * (ABNORMAL) Lipid Panel (03/25/2019 10:33 AM EDT) Total Cholesterol 152 0 - 200 mg/dL 03/25/2019 6:52 PM EDT [facility] Triglycerides 165(H) 0 - 150 mg/dL 03/25/2019 6:52 PM EDT [facility] HDL Cholesterol 37(L) 40 - 60 mg/dL 03/25/2019 6:52 PM EDT [facility] LDL Cholesterol 82 0 - 100 mg/dL 03/25/2019 6:52 PM EDT [facility] VLDL Cholesterol 33 5 - 40 mg/dL 03/25/2019 6:52 PM EDT [facility] LDL/HDL Ratio 2.22 03/25/2019 6:52 PM EDT [facility] Blood Left upper arm structure / Unknown Venipuncture / Unknown 03/25/2019 10:33 AM EDT 03/25/2019 10:33 AM EDT Narrative [facility] - 03/25/2019 6:52 PM [...] MD LAB BLOOD ORDERABLES Final Re sult [facility]
[address] [place] [address], * (ABNORMAL) Comprehensive Metabolic Panel (03/25/2019 10:33 AM EDT) Glucose 134(H) 65 - 99 mg/dL 03/25/2019 6:52 PM EDT [facility] BUN 17 8 - 23 mg/dL 03/25/2019 6:52 PM EDT [facility] Creatinine 0.78 0.57 - 1.00 mg/dL 03/25/2019 6:52 PM EDT [facility] Sodium 134(L) 136 - 145 mmol/L 03/25/2019 6:52 PM [facility] Potassium 4.5 3.5 - 5.2 mmol/L 03/25/2019 6:52 PM [facility] Chloride 95(L) 98 - 107 mmol/L 03/25/2019 6:52 PM [facility] CO2 28.2 22.0 - 29.0 mmol/L 03/25/2019 6:52 PM [facility] Calcium 10.3 8.6 - 10.5 mg/dL 03/25/2019 6:52 PM [facility] Total Protein 7.7 6.0 - 8.5 g/dL 03/25/2019 6:52 PM [facility] Albumin 3.80 3.50 - 5.20 g/dL 03/25/2019 6:52 PM [facility] ALT (SGPT) 12 1 - 33 U/L 03/25/2019 6:52 PM [facility] AST (SGOT) 12 1 - 32 U/L 03/25/2019 6:52 PM [facility] Alkaline Phosphatase 81 39 - 117 U/L 03/25/2019 6:52 PM [facility] Total Bilirubin 0.2 0.2 - 1.2 mg/dL 03/25/2019 6:52 PM [facility] eGFR Non Amer 73 >60 mL/min/1.7 3 03/25/2019 6:52 PM [facility] Globulin 3.9 gm/dL 03/25/2019 6:52 PM [facility] A/G Ratio 1.0 g/dL 03/25/2019 6:52 PM [facility] BUN/Creatinine Ratio 21.8 7.0 - 25.0 03/25/2019 6:52 PM [facility] Anion Gap 10.8 5.0 - 15.0 mmol/L 03/25/2019 6:52 PM [facility] Blood Left upper arm structure / Unknown Venipuncture / Unknown 03/25/2019 10:33 AM EDT 03/25/2019 10:33 AM EDT Narrative [facility] - 03/25/2019 6:52 PM EDT GFR Normal >60 Chronic Kidney Disease <60 Kidney Failure <15 Huber Grossman MD LAB BLOOD ORDERABLES Final Re sult Performing Organization Address City/[facility]/ZIP Co de Phone Number [facility]
[address] [place] [address], [place] [phone] * POC Glycosylated Hemoglobin (Hb A1C) (03/25/2019 10:18 AM EDT) Hemoglobin A1C 6.4 % [facility] Blood 03/25/2019 10:1 8 AM EDT Huber Grossman MD POINT OF CARE TEST ORDERABLES Final Result Performing Organization Address [facility] [place] Co de Phone Number [facility]
[address] [place] [address], [place] [phone] * SCANNED - LABS (03/25/2019) Huber Grossman MD LAB BLOOD ORDERABLES Final Re sult documented in this encounter Visit Diagnoses Diagnosis Type 2 diabetes mellitus with chronic kidney disease, without long-term current use of insulin, unspecified CKD stage- Primary Essential hypertension Unspecified essential hypertension Familial hypercholesterolemia Purpura Other nonthrombocytopenic purpuras documented in this encounter Care Teams Epic Cadence Analyst Relationship Specialty Start Date End Date Huber Grossman MD PCP - General Family Medicine 02/08/18 09/28/19 documented as of this encounter
--- OUTSIDE RECORDS SUMMARY | 2024-08-02 15:10 | XMS_ITS | Encounter Summary ---
[facility] Address [address] [place] [address] Care Team Providers Care Supervisor Cabinetmaker Name Role Phone Huber Grossman MD Primary Care Provider Barbara valladares Reason for Referral * Diagnostic Medical (Routine) - Closed Specialty Diagnoses / Procedures Referred By Contac t Referred To Contact Sleep Medicine Diagnoses DELL (obstructive sleep apnea) Procedures Polysomnography 4 or More Parameters Luis Galvan MD Phone: tel: fax: [facility] [address] [address] Phone: tel: fax: Referral ID Status Reason Start Date Expiration Date Visits Re quested Visits Authorized [id number] Closed 12/20/2018 12/20/2019 1 1 Reason for Visit * Diagnostic Medical (Routine) - Closed Specialty Diagnoses / Procedures Referred By Contac t Referred To Contact Sleep Medicine Diagnoses DELL (obstructive sleep apnea) Procedures Polysomnography 4 or More Parameters Luis Galvan MD Phone: tel: fax: [facility] [address] [address] Phone: tel: fax: Referral ID Status Reason Start Date Expiration Date Visits Re quested Visits Authorized [id number] Closed 12/20/2018 12/20/2019 1 1 Encounter Details Date Type Department Care Team (Late st Contact Info) Description 05/11/2019 7:56 PM EDT Hospital Encounter [facility] [address] [place] [id number] Luis Galvan MD [address] [place] [address] DELL (No follow-up); DELL (obstructive sleep apnea) [...] e 06/15/2023 Family and Community Support Answer Tyroen e Recorded Help with Day-to-Day Activities Not [...] 3:53 PM EDT Polysomnography Report [facility]: [facility] Interpreting Physician: Jonnathan Grajeda MD Date of : ??1950 Referring Physician: No info available Primary Care Physician: Huber Grossman MD Date of Study: ? Clinical Information Patient is a 69 y.o. female. ??She was seen by Hernando Galvan MD and the following history obtained last December: She has a history of obstructive sleep apnea. She underwent a home sleep study at [facility] a while ago which was apparently positive. She was supposed to go in for a titration sleep study which she never did. ?? She has nocturnal hypoxemia and uses supplemental oxygen every night. ?? She is morbidly obese with a BMI of nearly 55. A sleep study was ordered and was finally performed on 05/12/2019. Methods used for Diagnostic Study: ??Subject was monitored in the sleep laboratory. ??Electroencephalogram (C3/M2, C4/M1, F3/M2, F4/M1, 01/M2, O2/M1), EOG, EKG, and EMG (chin and bilateral anterior tibialis) were monitored by surface electrodes and recorded utilizing a computerized polygraph. ??Airflow was recorded by a thermistor and pressure transducer at the nose and mouth and oxygen saturation was recorded by a pulse oximeter. ??Thoracic and abdominal respiratory movements were recorded on 2 separate channels by respiratory inductive plethysmograph. ??Sleep stages were scored by standard techniques and abnormal respiratory events, cardiac arrhythmias, and leg movements were analyzed. ?? Polysomnography Results A) Sleep statistic and architecture: The patient had a sleep efficiency of Sleep Efficiency (%): 49.1 % . Sleep latency was Sleep Latency (min): 195.5 minutes. All stages of sleep were not seen during the study. The arousal index was ??Spontaneous Arousal Index (#/hr TST): 11.6 per hour. B) Respiratory events: Apnea-hypopnea index was AHI: 27.2 per hour. ??The respiratory disturbance index was RDI (if applicable): 32.5 per hour. C) Snoring: Snoring was noted to be present by the electrical electronics technician in attendance. D) Oxygen saturation: Oxygen [...] to follow. Diagnostic Summary Total Recording Time: ??Total Recording Time (TIB) (min): 486.1 minutes Total Sleep Time: ?? Total Sleep Time (TST)(min): 238.5 minutes Sleep Latency: ??Sleep Latency (min): 195.5 Stage R Latency: ??No Data Recorded Sleep Efficiency: ??Sleep Efficiency (%): 49.1 % Respiratory Data Obstructive Apnea Index: Obstructive Apnea Index (#/hr TST): 0.3 Central Apnea Index: ??Central Apnea Index (#/hr TST): 0 Mixed Apnea Index: ??Mixed Apnea Index (#/hr TST): 0 Obstructive Hypopnea Index: Obstructive Hypopnea Index (#/hr TST): 26.9 Total Apnea Index: ??Total Apnea Index (#/hr TST): 0.3 AHI: ?AHI: 27.2 RDI: ?RDI (if applicable): 32.5 NREM Total Apnea Idex: NREM Total Al (#/hr TST): 0.3 REM Total Apnea Index: No Data Recorded REM Hypopnea Index: No Data Recorded NREM Hypopnea Index: NREM Hypopnea Index: 26.9 Diagnostic Respiratory Index Summary by Body Position Supine AHI, TOTAL ?? AHI, TOTAL : 0 RDI, TOTAL ?? RDI, TOTAL : 0 TST (min) ?? TST (MIN) : 0 Left AHI, TOTAL ?? AHI, TOTAL : 27.2 RDI, TOTAL ?? RDI, TOTAL : 32.5 TST (min) ?? TST (min) : 238.5 Right AHI, TOTAL ?? No Data Recorded RDI, TOTAL ?? No Data Recorded TST (min) ?? No Data Recorded Prone AHI, TOTAL ?? No Data Recorded RDI, TOTAL ?? No Data Recorded TST (min) ?? No Data Recorded ?? Arousals Respiratory Arousal Index: Resp Arousal Index (#/hr TST): 12.1 Leg Arousal Index: ??Leg Arousal Index (#/hr TST): 0 Spontaneous Arousal Index: No Data Recorded Total Arousal Index: ??Spontaneous Arousal Index (#/hr TST): 11.6 Limb Movements PLMS Index: ?? Total # PLMS Arousals: 0 PLMS Arousal Index: ?? No Data Recorded Cardiac Average HR During Sleep: Avg HR During Sleep: 81.4 bpm Highest HR During Sleep: Highest HR During Sleep: 94 bpm Oximetry Minimum SPO2: ??Min SpO2: 82 % O2 Saturation, Mean Value: Arterial Oxygen Saturation, Mean Value (%): 90 % Impression: - ??moderate obstructive sleep apnea is present. - ??Oxygen desaturation is present. ?? - ??Snoring is present. Plan: - ??The patient would likely benefit from treatment for obstructive sleep apnea. ??Options would include auto CPAP therapy, an oral appliance if appropriate, or surgical therapy. ??Clinical correlates should be taken into account in formulating the specific treatment plan. ?? Lifestyle changes consisting of weight loss if needed and avoidance of nocturnal sedatives should be recommended. ??The patient was not seen in consultation at the sleep center and therefore should follow-up with the referring provider for consideration of treatment options. 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 09/08/2019 09/08/2019 documented as of this encounter Care Teams Supervisor Cabinetmaker Relationship Specialty Start Date End Date Huber Grossman MD PCP - General Family Medicine 02/08/18 09/28/19 documented as of this encounter
--- OUTSIDE RECORDS SUMMARY | 2024-08-02 15:10 | XMS_ITS | Encounter Summary ---
[facility] Organization [facility] Address [address] [place] [address] Care Team Providers Care Automatic Buffer Name Role Phone Huber Grossman MD Primary Care Provider Barbara valladares Reason for Visit * Reason Comments Med Refill Encounter Details Date Type Department Care Team (Late st Contact Info) Description 09/22/2018 Refill [facility] [address] [facility] [address] [place] [phone] Huber Grossman MD Social History Tobacco Use [...] Telephone Encounter - Remigio Morton MA - 09/23/2018 3:32 PM EST Rx phoned in. * Telephone Encounter - Huber Grossman MD - 09/23/2018 2:07 PM EST Rx called in done * Telephone Encounter - Remigio Morton MA - 09/23/2018 12:44 PM EST elie done * Telephone Encounter - Huber Grossman MD - 09/22/2018 3:03 PM EST Need a elie * Telephone Encounter - Remigio Morton MA - 09/22/2018 12:36 PM EST . documented in this encounter Plan of Treatment Not on file documented as of this encounter Visit Diagnoses Not on filedocumented in this encounter Care Teams Automatic Buffer Relationship Specialty Start Date End Date Huber Grossman MD PCP - General Family Medicine 02/08/18 09/28/19 documented as of this encounter
--- OUTSIDE RECORDS SUMMARY | 2024-08-02 15:10 | XMS_ITS | Encounter Summary ---
[facility] Address [address] [place] [address] Care Team Providers Care Roll Plugger Machine Operator Name Role Phone Huber Grossman MD Primary Care Provider Barbara valladares Encounter Details Date Type Department Care Team (Late st Contact Info) Description 09/20/2018 Telephone [facility] [address] [place] [phone] Remigio Morton MA Social History Tobacco [...] Telephone Encounter - Remigio Morton MA - 09/20/2018 10:47 AM EST RF Rx called informed ptViolet DICK ----- Message from Luis Felipe Matute sent at 09/20/2018 10:35 AM EST ----- Regarding: DIAZEPAM [facility] [place] Contact: PT NEEDS A PRESCRIPTION FOR DIAZEPAM SENT TO THE [facility] [place] documented in this encounter Plan of Treatment Not on file documented as of this encounter Visit Diagnoses Not on filedocumented in this encounter Care Teams Roll Plugger Machine Operator Relationship Specialty Start Date End Date Huber Grossamn MD PCP - General Family Medicine 02/08/18 09/28/19 documented as of this encounter
--- OUTSIDE RECORDS SUMMARY | 2024-08-02 15:10 | XMS_ITS | Encounter Summary ---
[facility] Organization [facility] Address [address] [place] [address] Care Team Providers Care Real Estate Professor Name Role Phone Huber Grossman MD Primary Care Provider Barbara valladares Encounter Details Date Type Department Care Team (Late st Contact Info) Description 08/11/2019 Telephone [facility] [phone] Huber Grossman MD Social History [...] Telephone Encounter - Remigio Morton MA - 08/11/2019 12:36 PM EST ----- Message from Huber Grossman MD sent at 08/11/2019 12:22 PM EST ----- Order placed for rheumatology follow-up talk with patient by phone and recommended through if. she is unable to get in with rheumatology is taking cephalexin for cellulitis in her leg and hopefully will help with the UTI if not may require IV antibiotics and infectious disease consultation. She understands and I am not able to do all these on the phone and will call an ambulance if necessary. ----- Message ----- From: Remigio Morton MA Sent: 08/11/2019 9:52 AM To: Huber Grossman MD ----- Message ----- From: Nimisha Omer Sent: 08/11/2019 9:19 AM To: Remigio Morton MA [facility] called. States pt left a message that Dr. 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 There has not be a referral put in. Please advise documented in this encounter Plan of Treatment Not on file documented as of this encounter Visit Diagnoses Not on filedocumented in this encounter Care Teams Real Estate Professor Relationship Specialty Start Date End Date Huber Grossman MD PCP - General Family Medicine 02/08/18 09/28/19 documented as of this encounter
--- OUTSIDE RECORDS SUMMARY | 2024-08-02 15:10 | XMS_ITS | Encounter Summary ---
Author Organization [facility] Address [address] [place] [address] Care Team Providers Care Senior Qc Technician Name Role Phone Huber Grossman MD Primary Care Provider Barbara valladares Reason for Visit * Reason Onset Date Comments Med Refill 04/14/2019 Encounter Details Date Type Department Care Team (Late st Contact Info) Description 04/14/2019 Refill [facility] [address] [facility] [address] [place] [address] Remigio Morton MA Social History Tobacco Use [...] on filedocumented in this encounter Care Teams Senior Qc Technician Relationship Specialty Start Date End Date Huber Grossman MD PCP - General Family Medicine 02/08/18 09/28/19 documented as of this encounter
--- OUTSIDE RECORDS SUMMARY | 2024-08-02 15:10 | XMS_ITS | Encounter Summary ---
[facility] Address [address] [place] [address] Care Team Providers Care Bee Breeder Name Role Phone Huber Grossman MD Primary Care Provider Barabra valladares Reason for Visit * Reason Comments Edema both legs B12 Injection Labs Only Encounter Details Date Type Department Care Team (Late st Contact Info) Description 07/21/2019 11:15 AM EST Office Visit [facility] [address] [facility] [address] [place] [phone] Huber Grossman MD Edema, peripheral (Primary Dx); HSP (Henoch Schonlein purpura); Chronic diastolic (congestive) heart failure (CMS/HCC) ; Urinary tract infection without hematuria, site unspecified; Cellulitis of lower leg Social History Tobacco Use Types Packs/Day Years [...] Sign Reading Time Taken Comments Blood Pressure 142/82 07/21/2019 11:04 AM EST Pulse 78 07/21/2019 11:04 AM EST Temperature - - Respiratory Rate 16 07/21/2019 11:04 AM EST Oxygen Saturation 93% 07/21/2019 11:04 AM EST Inhaled Oxygen Concentration - - Weight 140 kg (309 lb 6.4 oz) 07/21/2019 11:04 A M EST Height 154.9 cm (5' 1 ) 07/21/2019 11:04 AM EST Body Mass Index 58.46 07/21/2019 11:04 AM EST documented in this encounter Progress Notes * Huber Grossman MD - 07/21/2019 11:15 AM EST Subjective Mirtha Mayberry is a 69 y.o. female. Leg Swelling This is a recurrent problem. The problem occurs constantly. The problem has been gradually worsening. Associated symptoms include arthralgias and a rash. Pertinent negatives include no chest pain, chills, congestion, fever, joint swelling, nausea, sore throat or vomiting. The symptoms are aggravated by standing. She has tried position changes (Leg elevation diuretic unable to tolerate compressionstockings) for the symptoms. The treatment provided no relief. The following portions of the patient's history were reviewed and updated as appropriate: allergies, current medications, past social history and problem list. Review of Systems Constitutional: Negative for chills and fever. HENT: Negative for congestion and sore throat. Respiratory: Positive for shortness of breath. Cardiovascular: Positive for leg swelling. Negative for chest pain and palpitations. Gastrointestinal: Negative for diarrhea, nausea and vomiting. Genitourinary: Positive for frequency. Negative for dysuria. Musculoskeletal: Positive for arthralgias. Negative for joint swelling. Skin: Positive for color change and rash. Neurological: Negative for dizziness and light-headedness. Objective BP 142/82 Pulse 78 Resp 16 Ht 154.9 cm (61 ) Wt (!) 140 kg (309 lb 6.4 oz) SpO2 93% BMI58.46 kg/m?? Physical Exam Constitutional: She is oriented to person, place, and time. She appears well- developed and well-nourished. She is cooperative. HENT: Head: Normocephalic and atraumatic. Eyes: Conjunctivae are normal. Pupils are equal, round, and reactive to light. No scleral icterus. Neck: Neck supple. Carotid bruit is not present. No thyromegaly present. Cardiovascular: Normal rate, regular rhythm, normal heart sounds and intact distal pulses. Pulmonary/Chest: Effort normal and breath sounds normal. She has no wheezes. She has no rales. Abdominal: There is no hepatosplenomegaly. Musculoskeletal: Normal range of motion. She exhibits edema. Pitting edema both lower extremities up to the knee there is erythema of the right anterior leg david few purpura on her toes Neurological: She is alert and oriented to person, place, and time. No focal deficits no lateralizing signs Skin: Skin is warm and dry. No rash noted. Psychiatric: She has a normal mood and affect. Cognition and memory are normal. Nursing note and vitals reviewed. Assessment/Plan Problem List Items Addressed This Visit Active Problems Edema, peripheral - Primary Relevant Orders Basic Metabolic Panel (Completed) CBC (No Diff) (Completed) TSH (Completed) POC Urinalysis Dipstick, Automated (Completed) BNP (Completed) Other Visit Diagnoses HSP (Henoch Schonlein purpura) ([facility]/HCC) Relevant Orders BNP (Completed) Chronic diastolic (congestive) heart failure ([facility]/HCC) Relevant Orders BNP (Completed) Urinary tract infection without hematuria, site unspecified Relevant Orders Urine Culture - Urine, Urine, Clean Catch New Medications Ordered This Visit Medications ??? sulfamethoxazole-trimethoprim (BACTRIM DS) 800-160 MG per tablet Sig: Take 1 tablet by mouth 2 (Two) Times a Day. Dispense: 20 tablet Refill: 0 ??? diazePAM (VALIUM) 5 MG tablet Sig: Take 1 tablet by mouth 2 (Two) Times a Day As Needed for Anxiety. Dispense: 30 tablet Refill: 2 Contact lymphedema clinic at [facility] for further treatment of her lower extremity edema, start Bactrim for cellulitis of the right lower extremity, increase Lasix to twice a day. documented in this encounter Plan of Treatment Not on file documented as of this encounter Procedures Procedure Name Priority Date/Time Associated Diagnosis Comments URINE CULTURE Routine 07/21/2019 1:11 PM EST Urinary tract infection without hematuria, site unspecified POCT URINALYSIS DIPSTICK, AUTOMATED Routine 07/21/2019 12:36 PM EST Edema, peripheral BNP (REFERENCE) Routine 07/21/2019 11:44 AM EST Chronic diastolic (congestive) heart failure (CMS/HCC) Edema, peripheral HSP (Henoch Schonlein purpura) CBC (NO DIFF) Routine 07/21/2019 11:44 AM EST Edema, peripheral TSH Routine 07/21/2019 11:44 AM EST Edema, peripheral BASIC METABOLIC PANEL Routine 07/21/2019 11:44 AM EST Edema, peripheral documented in this encounter Results * (ABNORMAL) Urine Culture - Urine, Urine, Clean Catch (07/21/2019 1:11 PM EST) Urine Culture >100,000 CFU/mL Escherichia coli(A) RONI 07/23/2019 3:37 AM EST [facility] Urine Urine specimen collection, clean catch / Unknown Collection / Unknown 07/21/2019 1:11 PM EST 07/21/2019 1:11 PM EST Narrative Organism Antibiotic Method Susceptibility Escherichia coli Ampicillin RONI <=2 ug/ml: Susceptible Escherichia coli Ampicillin + Sulbactam RONI <=2 ug/ml: Susceptible Escherichia coli Cefazolin RONI <=4 ug/ml: Susceptible Escherichia coli Cefepime RONI <=1 ug/ml: Susceptible Escherichia coli Ceftazidime RONI <=1 ug/ml: Susceptible Escherichia coli Ceftriaxone RONI <=1 ug/ml: Susceptible Escherichia coli Gentamicin RONI <=1 ug/ml: Susceptible Escherichia coli Levofloxacin RONI >=8 ug/ml: Resistant Escherichia coli Piperacillin + Tazobactam RONI <=4 ug/ml: Susceptible Escherichia coli Tetracycline RONI >=16 ug/ml: Resistant Escherichia coli Trimethoprim + Sulfamethoxazole RONI >=320 ug/ml: Resistant us Huber Grossman MD MICROBIOLOGY - GENERAL ORDERA BLES Final Result [facility]
[address] [place] [address], * (ABNORMAL) POC Urinalysis Dipstick, Automated (07/21/2019 12:36 PM EST) Color Yumiko Yellow, Straw, Dark Yellow, Yumiko [facility] Clarity, UA Cloudy(A) Clear [facility] Specific [place] 1.030 1.005 - 1.030 [facility] pH, Urine 6.0 5.0 - 8.0 [facility] Leukocytes Trace(A) Negative [facility] Nitrite, UA Positive(A) Negative [facility] Protein, POC 30 mg/dL(A) Negative mg/dL [facility] Glucose, UA Negative Negative, 1000 mg/dL (3+) mg/dL [facility] Ketones, UA Trace(A) Negative [facility] Urobilinogen, UA Normal Normal [facility] Bilirubin Small (1+)(A) Negative [facility] Blood, UA Trace(A) Negative [facility] Urine 07/21/2019 12:3 6 PM EST Huber Gorssman MD POINT OF CARE TEST ORDERABLES Final Result [facility]
[address] [place] [address], * BNP (07/21/2019 11:44 AM EST) BNP 24.1 0.0 - 100.0 pg/mL 07/22/2019 8:12 AM EST [facility] Blood Left upper arm structure / Unknown Venipuncture / Unknown 07/21/2019 11:44 AM EST 07/21/2019 11:45 AM EST Narrative [facility] - 07/22/2019 8:12 AM EST Performed at: ?? - [facility] [address] ??[id number] Fish Packer: Chad Lin PhD, Phone: ??[phone] Huber Grossman MD LAB BLOOD ORDERABLES Final Re sult [facility] [address] [place] [id number], [place] [phone] * (ABNORMAL) TSH (07/21/2019 11:44 AM EST) TSH 6.900(H) 0.270 - 4.200 uIU/mL 07/21/2019 6:50 PM [facility] Blood Left upper arm structure / Unknown Venipuncture / Unknown 07/21/2019 11:44 AM EST 07/21/2019 11:45 AM EST Huber Grossman MD LAB BLOOD ORDERABLES Final Re sult [facility]
[address] [place] [address], * CBC (No Diff) (07/21/2019 11:44 AM EST) WBC 9.14 3.40 - 10.80 10*3/mm3 07/21/2019 10:44 PM [facility] RBC 4.55 3.77 - 5.28 10*6/mm3 07/21/2019 10:44 PM [facility] Hemoglobin 14.8 12.0 - 15.9 g/dL 07/21/2019 10:44 PM [facility] Hematocrit 43.3 34.0 - 46.6 % 07/21/2019 10:44 PM [facility] MCV 95.2 79.0 - 97.0 fL 07/21/2019 10:44 PM [facility] MCH 32.5 26.6 - 33.0 pg 07/21/2019 10:44 PM [facility] MCHC 34.2 31.5 - 35.7 g/dL 07/21/2019 10:44 PM [facility] RDW 12.6 12.3 - 15.4 % 07/21/2019 10:44 PM [facility] RDW-SD 43.7 37.0 - 54.0 fl 07/21/2019 10:44 PM [facility] MPV 10.6 6.0 - 12.0 fL 07/21/2019 10:44 PM EST [facility] Platelets 264 140 - 450 10*3/mm3 07/21/2019 10:44 PM [facility] Blood Left upper arm structure / Unknown Venipuncture / Unknown 07/21/2019 11:44 AM EST 07/21/2019 11:45 AM EST Huber Grossman MD LAB BLOOD ORDERABLES Final Re sult [facility]
[address] [place] [address], * (ABNORMAL) Basic Metabolic Panel (07/21/2019 11:44 AM EST) Glucose 202(H) 65 - 99 mg/dL 07/21/2019 6:41 PM [facility] BUN 11 8 - 23 mg/dL 07/21/2019 6:41 PM [facility] Creatinine 0.87 0.57 - 1.00 mg/dL 07/21/2019 6:41 PM [facility] Sodium 138 136 - 145 mmol/L 07/21/2019 6:41 PM [facility] Potassium 4.5 3.5 - 5.2 mmol/L 07/21/2019 6:41 PM [facility] Chloride 96(L) 98 - 107 mmol/L 07/21/2019 6:41 PM [facility] CO2 27.8 22.0 - 29.0 mmol/L 07/21/2019 6:41 PM [facility] Calcium 9.8 8.6 - 10.5 mg/dL 07/21/2019 6:41 PM [facility] eGFR Non Amer 64 >60 mL/min/1.7 3 07/21/2019 6:41 PM [facility] BUN/Creatinine Ratio 12.6 7.0 - 25.0 07/21/2019 6:41 PM [facility] Anion Gap 14.2 5.0 - 15.0 mmol/L 07/21/2019 6:41 PM EST [facility] Blood Left upper arm structure / Unknown Venipuncture / Unknown 07/21/2019 11:44 AM EST 07/21/2019 11:45 AM EST Narrative [facility] - 07/21/2019 6:41 PM EST GFR Normal >60 Chronic Kidney Disease <60 Kidney Failure <15 Huber Grossman MD LAB BLOOD ORDERABLES Final Re sult [facility]
[address] [place] [address], documented in this encounter Visit Diagnoses Diagnosis Edema, peripheral- Primary Edema HSP (Henoch Schonlein purpura) Allergic purpura Chronic diastolic (congestive) heart failure (CMS/HCC) Urinary tract infection without hematuria, site unspecified Cellulitis of lower leg documented in this encounter Administered Medications Inactive Administered Medications - up to 3 most recent administrations Medication Order MAR Action Action Date Dose Rate Site cyanocobalamin injection 1,000 mcg 1,000 mcg, Intramuscular, Every 28 Days, First dose on Thu12/21/18 at 1037Indications:B12 deficiency Given 07/21/2019 12:38 PM EST 1,000 mcg Left Deltoid Given 12/21/2018 10:43 AM EDT 1,000 mcg L eft Deltoid documented in this encounter Care Teams Bee Breeder Relationship Specialty Start Date End Date Huber Grossman MD PCP - General Family Medicine 02/08/18 09/28/19 documented as of this encounter
--- OUTSIDE RECORDS SUMMARY | 2024-08-02 15:10 | XMS_ITS | Encounter Summary ---
Author Organization [facility] Address [address] [place] [address] Care Team Providers Care Quilt Sewer Name Role Phone Huber Grossman MD Primary Care Provider Barbara valladares Reason for Visit * Reason Onset Date Comments Med Refill 04/20/2019 Encounter Details Date Type Department Care Team (Late st Contact Info) Description 04/20/2019 Refill [facility] [address] [facility] [address] [place] [phone] Remigio Morton MA Social History Tobacco Use [...] on filedocumented in this encounter Care Teams Quilt Sewer Relationship Specialty Start Date End Date Huber Grossman MD PCP - General Family Medicine 02/08/18 09/28/19 documented as of this encounter
--- OUTSIDE RECORDS SUMMARY | 2024-08-02 15:10 | XMS_ITS | Encounter Summary ---
Author Organization [facility] Address [address] [place] [address] Care Team Providers Care Disease Intervention Specialist Name Role Phone Huber Grossman MD Primary Care Provider Barbara valladares Reason for Referral * Diagnostic Imaging (Routine) - Closed Specialty Diagnoses / Procedures Referred By Contac t Referred To Contact Radiology Diagnoses Hypoxia Laryngeal spasm Procedures XR chest pa and lateral Luis Galvan MD Phone: tel: fax: [address] [phone] Phone: tel: Referral ID Status Reason Start Date Expiration Date Visits Re quested Visits Authorized [id number] Closed 11/11/2018 11/11/2019 1 1 Reason for Visit * Diagnostic Imaging (Routine) - Closed Specialty Diagnoses / Procedures Referred By Contac t Referred To Contact Radiology Diagnoses Hypoxia Laryngeal spasm Procedures XR chest pa and lateral Luis Galvan MD Phone: tel: fax: [address] [phone] Phone: tel: Referral ID Status Reason Start Date Expiration Date Visits Re quested Visits Authorized [id number] Closed 11/11/2018 11/11/2019 1 1 Encounter Details Date Type Department Care Team (Latest Contact Info) Description 11/30/2018 9:38 AM EDT - 11/30/2018 11:59 PM EDT Hospital Encounter [facility] XRAY AT [address] [phone] Hypoxia; Laryngeal spasm Discharge Disposition: Home or Self Care Social [...] home. If you didn't receive these call [phone]. 2 bottle 05/17/2018 9 topiramate (TOPAMAX) 25 [...] Procedure Name Priority Date/Time Associated Diagnosis Comments XR CHEST PA AND LATERAL Routine 11/30/2018 10:04 AM EDT Hypoxia Laryngeal spasm documented in this encounter Results * XR Chest PA & Lateral (11/30/2018 10:04 AM EDT) Anatomical Region Laterality Modality Body, Chest N/A Radiographic Juanita ging 11/30/2018 10:4 8 AM EDT Impressions 11/30/2018 1:35 PM EDT No significant interval change from 2009 comparison with the exception of only mild advanced chronic changes at the bases, however, no acute cardiopulmonary process. D: ??11/30/2018 E: ??11/30/2018 This report was finalized on 11/30/2018 1:[address] Dejon Patrick. Narrative 11/30/2018 1:35 PM EDT EXAMINATION: XR CHEST, PA AND LATERAL-11/30/2018: INDICATION: New patient exam; R09.02-Hypoxemia; J38.5-Laryngeal spasm. COMPARISON: Chest x-ray 10/27/2009. FINDINGS: Cardiac size within normal limits. Pulmonary vascularity within normal limits. Bibasilar atelectasis and/or scarring, greatest on the left, without focal consolidation or significant effusion. No pneumothorax. ? Procedure Note Dejon Patrick DO - 11/30/2018 EXAMINATION: XR CHEST, PA AND LATERAL-11/30/2018: INDICATION: New patient exam; R09.02-Hypoxemia; J38.5-Laryngeal spasm. COMPARISON: Chest x-ray 10/27/2009. FINDINGS: Cardiac size within normal limits. Pulmonary vascularity within normal limits. Bibasilar atelectasis and/or scarring, greatest on the left, without focal consolidation or significant effusion. No pneumothorax. IMPRESSION: No significant interval change from 2009 comparison with the exception of only mild advanced chronic changes at the bases, however, no acute cardiopulmonary process. E: 11/30/2018 This report was finalized on 11/30/2018 1:[address] Dejon Patrick. Luis Galvan MD IMG DIAGNOSTIC IMAGING ORDERABLES Final Result documented in this encounter Visit Diagnoses Diagnosis Hypoxia Hypoxemia Laryngeal spasm documented in this encounter Care Teams Disease Intervention Specialist Relationship Specialty Start Date End Date Huber Grossman MD PCP - General Family Medicine 02/08/18 09/28/19 documented as of this encounter
--- OUTSIDE RECORDS SUMMARY | 2024-08-02 15:10 | XMS_ITS | Encounter Summary ---
[facility] Address [address] [place] [address] Care Team Providers Care Grief Counselor Name Role Phone Huber Grossman MD Primary Care Provider Barbara valladares Reason for Visit * Reason Comments Leg Swelling RT AND LT LEGS Diabetes MED REFILL Hyperlipidemia MED REFILL Allergies MED REFILL Encounter Details Date Type Department Care Team (Latest Contact Info) Description 06/24/2019 10:45 AM EDT Office Visit [facility] [address] [place] [phone] Huber Grossman MD Familial hypercholesterolemia (Primary Dx); Essential hypertension; Type 2 diabetes mellitus without complication, without long-term current use of insulin; Edema, peripheral Social History Tobacco Use Types Packs/Day Years [...] Sign Reading Time Taken Comments Blood Pressure 134/82 06/24/2019 10:46 AM EDT Pulse 91 06/24/2019 10:46 AM EDT Temperature - - Respiratory Rate 16 06/24/2019 10:46 AM EDT Oxygen Saturation - - Inhaled Oxygen Concentration - - Weight 133 kg (294 lb 3.2 oz) 06/24/2019 10:46 A M EDT Height 154.9 cm (5' 1 ) 06/24/2019 10:46 AM EDT Body Mass Index 55.59 06/24/2019 10:46 AM EDT documented in this encounter Progress Notes * Huber Grossman MD - 06/24/2019 10:45 AM EDT Joana Mayebrry is a 69 y.o. female. Leg Swelling This is a chronic problem. The current episode started more than 1 month ago. The problem occurs daily. The problem has been gradually worsening. Pertinent negatives include no chest pain, congestion, diaphoresis, fatigue, headaches, nausea, numbness, sore throat, vomiting or weakness. The symptomsare aggravated by stress and standing. The treatment provided mild relief. Diabetes She presents for her follow-up (doing much better on diet) diabetic visit. She has type 2 diabetes mellitus. Her disease course has been improving. Pertinent negatives for hypoglycemia include no dizziness or headaches. Associated symptoms include polyuria. Pertinent negatives for diabetes include no chest pain, no fatigue, no polydipsia, no polyphagia and no weakness. There are no hypoglycemic complications. Symptoms are stable. Risk factors for coronary artery disease include obesity, sedentary lifestyle, post-menopausal and tobacco exposure. Current diabetic treatment includes oral agent (monotherapy). She is compliant with treatment some of the time. Her weight is stable. She participate s in exercise intermittently. An CHAS inhibitor/angiotensin II receptor shefali is being taken. Eye exam is current. Hyperlipidemia Pertinent negatives include no chest pain or shortness of breath. Hypertension This is a chronic problem. The problem is unchanged. The problem is controlled. Pertinent negativesinclude no chest pain, headaches, palpitations or shortness of breath. Risk factors for coronary artery disease include obesity, post- menopausal state, dyslipidemia and diabetes mellitus. Current antihypertension treatment includes angiotensin blockers, calcium channel blockers and lifestyle changes. The current treatment provides significant improvement. Compliance problems include exercise. The following portions of the patient's history were reviewed and updated as appropriate: allergies, current medications, past social history and problem list. Review of Systems Constitutional: Negative for activity change, appetite change, diaphoresis, fatigue and unexpected weight change. HENT: Negative for congestion and sore throat. Eyes: Negative for pain and visual disturbance. Respiratory: Negative for chest tightness and shortness of breath. Cardiovascular: Positive for leg swelling. Negative for chest pain and palpitations. Gastrointestinal: Negative for diarrhea, nausea and vomiting. Endocrine: Positive for polyuria. Negative for polydipsia and polyphagia. Genitourinary: Negative for dysuria and hematuria. Skin: Negative for color change. Neurological: Negative for dizziness, syncope, weakness, light-headedness, numbness and headaches. Psychiatric/Behavioral: Mood has improved Objective BP 134/82 Pulse 91 Resp 16 Ht 154.9 cm (61 ) Wt 133 kg (294 lb 3.2 oz) BMI 55.59 kg/m?? Physical Exam Constitutional: She is oriented [...] Normal range of motion. She exhibits edema. Neurological: She is alert and oriented to person, place, and time. No focal deficits no lateralizing signs Skin: Skin is warm and dry. No rash noted. Psychiatric: She has a normal mood and affect. Cognition and memory are normal. Nursing note and vitals reviewed. Assessment/Plan Problem List Items Addressed This Visit Active Problems Edema, peripheral Relevant Medications furosemide (LASIX) 40 MG tablet potassium chloride (MICRO-K) 10 MEQ CR capsule HLD (hyperlipidemia) - Primary Relevant Medications rosuvastatin (CRESTOR) 10 MG tablet Essential hypertension Relevant Medications furosemide (LASIX) 40 MG tablet potassium chloride (MICRO-K) 10 MEQ CR capsule Type 2 diabetes mellitus without complication, without long-term current use of insulin ([facility]) Relevant Medications glipizide (GLUCOTROL) 5 MG tablet New Medications Ordered This Visit Medications ??? furosemide (LASIX) 40 MG tablet Sig: Take 1 tablet by mouth Daily. Dispense: 30 tablet Refill: 0 ??? potassium chloride (MICRO-K) 10 MEQ CR capsule Sig: Take 1 capsule by mouth Daily. Dispense: 30 capsule Refill: 0 ??? glipizide (GLUCOTROL) 5 MG tablet Sig: Take 1 tablet by mouth 2 (Two) Times a Day Before Meals. Dispense: 180 tablet Refill: 1 ??? rosuvastatin (CRESTOR) 10 MG tablet Sig: Take 1 tablet by mouth Every Night. Dispense: 90 tablet Refill: 1 ??? azelastine (ASTELIN) 0.1 % nasal spray Si sprays into the nostril(s) as directed by provider Daily. Use in each nostril as directed Dispense: 30 mL Refill: 5 Mirtha had a venous Doppler at [facility] which showed no DVT. I recommend she start wearing her compression stockings elevating her legs whenever possible. May Need to consider lymphedema clinic. documented in this encounter Plan of Treatment Not on file documented as of this encounter Procedures Procedure Name Priority Date/Time Associated Diagnosis Comments SCANNED - INFLUENZA 06/24/2019 documented in this encounter Results * SCANNED - INFLUENZA (06/24/2019) Huber Grossman MD CHART REVIEW TABS Final Re sult documented in this encounter Visit Diagnoses Diagnosis Familial hypercholesterolemia- Primary Essential hypertension Unspecified essential hypertension Type 2 diabetes mellitus without complication, without long-term current use of insulin Edema, peripheral Edema documented in this encounter Care Teams Grief Counselor Relationship Specialty Start Date End Date Huber Grossman MD PCP - General Family Medicine 02/08/18 09/28/19 documented as of this encounter
--- OUTSIDE RECORDS SUMMARY | 2024-08-02 15:10 | XMS_ITS | Encounter Summary ---
[facility] Address [address] [place] [address] Care Team Providers Care Machine Heel Builder Name Role Phone Huber Grossman MD Primary Care Provider Barbara valladares Reason for Visit * Reason Comments Diabetes 3 month f/u Airway Hyperreactivity Encounter Details Date Type Department Care Team (Late st Contact Info) Description 12/21/2018 10:00 AM EDT Office Visit [facility] [address] [phone] Huber Grossman MD Type 2 diabetes mellitus with chronic kidney disease, without long-term current use of insulin, unspecified CKD stage (Primary Dx); Familial hypercholesterolemia; B12 deficiency; Essential hypertension Social History Tobacco Use Types Packs/Day Years [...] Sign Reading Time Taken Comments Blood Pressure 124/80 12/21/2018 10:05 AM EDT Pulse 90 12/21/2018 10:05 AM EDT Temperature - - Respiratory Rate 16 12/21/2018 10:05 AM EDT Oxygen Saturation 93% 12/21/2018 10:05 AM EDT Inhaled Oxygen Concentration - - Weight 130 kg (286 lb 9.6 oz) 12/21/2018 10:05 A M EDT Height 156.2 cm (5' 1.5 ) 12/21/2018 10:05 AM ED T Body Mass Index 53.28 12/21/2018 10:05 AM EDT documented in this encounter Progress Notes * Huber Grossman MD - 12/21/2018 10:00 AM EDT Subjective Mirtha Mayberry is a 68 y.o. female. Diabetes She presents for her follow-up (doing much better on diet) diabetic visit. She has type 2 diabetes mellitus. Her disease course has been improving. There are no hypoglycemic associated symptoms. Pertinent negatives for hypoglycemia include no dizziness [...] compliant with treatment some of the time. She participates in exercise intermittently. An CHAS inhibitor/angiotensinII receptor shefali is being taken. Eye exam is current. Obesity This is a chronic problem. The current episode started more than 1 year ago. The problem has been unchanged. Associated symptoms include arthralgias. Pertinent negatives include no chest pain, congestion, coughing, diaphoresis, fatigue, headaches, joint swelling, nausea, numbness, sore throat, vomiting or weakness. She has tried nothing for the symptoms. The treatment provided no relief. Hypertension This is a chronic problem. The [...] fatigue, unexpected weight change and weight loss. HENT: Negative for congestion and sore throat. Eyes: Negative for pain and visual disturbance. Respiratory: Positive for shortness of breath. Negative for cough and chest tightness. Cardiovascular: Negative for chest pain, palpitations and leg swelling. Gastrointestinal: Negative for diarrhea, nausea and vomiting. Endocrine: Positive for polyuria. Negative for polydipsia and polyphagia. Genitourinary: Negative for dysuria and hematuria. Musculoskeletal: Positive for arthralgias. Negative for joint swelling. Skin: Negative for color change. Neurological: Negative for dizziness, syncope, weakness, light-headedness, numbness and headaches. Objective BP 124/80 Pulse 90 Resp 16 Ht 156.2 cm (61.5 ) Wt 130 kg (286 lb 9.6 oz) SpO2 93% BMI 53.28 kg/m?? Physical Exam Constitutional: She is oriented [...] breath sounds normal. She has no wheezes. Abdominal: There is no hepatosplenomegaly. Musculoskeletal: Normal [...] Visit Active Problems HLD (hyperlipidemia) Relevant Orders Hepatitis C Antibody (Completed) Essential hypertension Diabetes mellitus (CMS/HCC) - Primary Relevant Orders POC Glycosylated Hemoglobin (Hb A1C) (Completed) Hepatitis C Antibody (Completed) B12 deficiency Relevant Medications cyanocobalamin injection 1,000 mcg New Medications Ordered This Visit Medications ??? cyanocobalamin injection 1,000 mcg Much improved hemoglobin A1c encourage continued dietary compliance weight loss and increased exercise. Using CPAP. documented in this encounter Plan of Treatment Not on file documented as of this encounter Procedures Procedure Name Priority Date/Time Associated Diagnosis Comments HEPATITIS C ANTIBODY Routine 12/21/2018 10:57 AM EDT Type 2 diabetes mellitus with chronic kidney disease, without long-term current use of insulin, unspecified CKD stage Familial hypercholesterolemia POCT GLYCOSYLATED HEMOGLOBIN (HGB A1C) Routine 12/21/2018 10:24 AM EDT Type 2 diabetes mellitus with chronic kidney disease, without long-term current use of insulin, unspecified CKD stage documented in this encounter Results * Hepatitis C Antibody (12/21/2018 10:57 AM EDT) Hepatitis C Ab Non-Reacti ve Non-Reacti ve 12/21/2018 7:17 PM EDT [facility] Blood Right upper arm structure / Unknown Venipuncture / Unknown 12/21/2018 10:57 AM EDT 12/21/2018 10:58 AM EDT Huber Grossman MD LAB BLOOD ORDERABLES Final Re sult [facility]
[address] [place] [address], [place] [phone] * POC Glycosylated Hemoglobin (Hb A1C) (12/21/2018 10:24 AM EDT) Hemoglobin A1C 6.4 % [facility] Blood 12/21/2018 10:2 4 AM EDT Huber Grossman MD POINT OF CARE TEST ORDERABLES Final Result [facility]
[address] [place] [address], [place] [phone] documented in this encounter Visit Diagnoses Diagnosis Type 2 diabetes mellitus with chronic kidney disease, without long-term current use of insulin, unspecified CKD stage- Primary Familial hypercholesterolemia B12 deficiency Essential hypertension Unspecified essential hypertension documented in this encounter Administered Medications Inactive [...] Deltoid documented in this encounter Care Teams Machine Heel Builder Relationship Specialty Start Date End Date Huber Grossman MD PCP - General Family Medicine 02/08/18 09/28/19 documented as of this encounter
--- OUTSIDE RECORDS SUMMARY | 2024-08-02 15:10 | XMS_ITS | Encounter Summary ---
Author Organization [facility] Address [address] [place] [address] Care Team Providers Care Scabbler Name Role Phone Huber Grossman MD Primary Care Provider Barbara valladares Reason for Visit * Reason Onset Date Comments Med Refill 09/21/2018 Encounter Details Date Type Department Care Team (Late st Contact Info) Description 09/21/[address] [facility] [address] [facility] [address] [place] [phone] Remigio Morton MA Social History Tobacco Use [...] on filedocumented in this encounter Care Teams Scabbler Relationship Specialty Start Date End Date Huber Grossman MD PCP - General Family Medicine 02/08/18 09/28/19 documented as of this encounter
--- OUTSIDE RECORDS SUMMARY | 2024-08-02 15:10 | XMS_ITS | Encounter Summary ---
[facility] Address [address] [place] [address] Care Team Providers Care Television News Video Editor Name Role Phone Dano Romero MD Primary Care Provider [phone] Reason for Visit * Reason Onset Date Comments AH- POTENTIAL MED REACTION 07/22/2019 Encounter Details Date Type Department Care Team (Late st Contact Info) Description 07/22/2019 Telephone [facility] [address] [place] [phone] uHber Grossman MD AH- POTENTIAL MED REACTION Social History Tobacco Use Types Packs/Day Years [...] Telephone Encounter - Huber Grossman MD - 07/22/2019 12:58 PM EST Rx sent * Telephone Encounter - Remigio Morton MA - 07/22/2019 12:44 PM EST She had a round red spot appear on her thigh and elbow. She would like the medication switched and a new one sent to [facility] in [place]. * Telephone Encounter - Huber Grossman MD - 07/22/2019 9:57 AM EST Is it the bactrim (antibiotic) she is concerned about? If so stop it and can change * Telephone Encounter - Remigio Morton MA - 07/22/2019 9:35 AM EST Please advise * Telephone Encounter - Tamie Kline RegSched Rep - 07/22/2019 8:54 AM EST Patient called and left a voicemail 07/22/19 at 8:14AM. She states she started a new medication 07/21/19 after her visit with Dr. Grossman and then she woke up last night with a very large red ak chin looking similar to a blood blister on her outer thigh. She researched the new medication and thinks this could be a potential allergic reaction. She states this has happened to her multiple times in the past. I returned call and offered an appointment, she would prefer that I ask Dr. Grossman what hewould like her to do and go from there. Please advise and follow up with patient. 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 09/08/2019 09/08/2019 documented as of this encounter Care Teams Television News Video Editor Relationship Specialty Start Date End Date Dano Romero MD [address] [place] [address] PCP - General Internal Medicine 09/29/19 documented as of this encounter
--- OUTSIDE RECORDS SUMMARY | 2024-08-02 15:10 | XMS_ITS | Encounter Summary ---
[facility] Address [address] [place] [address] Care Team Providers Care Lead Java Software Engineer Name Role Phone Huber Grossman MD Primary Care Provider Barbara valladares Reason for Visit * Reason Comments Med Refill Encounter Details Date Type Department Care Team (Late st Contact Info) Description 07/21/2019 Refill [facility] [address] [facility] [address] [place] [phone] Huber Grossman MD Essential hypertension; Edema, peripheral Social History Tobacco Use Types [...] as of this encounter Visit Diagnoses Diagnosis Essential hypertension Unspecified essential hypertension Edema, peripheral Edema documented in this encounter Care Teams Lead Java Software Engineer Relationship Specialty Start Date End Date Huber Grossman MD PCP - General Family Medicine 02/08/18 09/28/19 documented as of this encounter
--- OUTSIDE RECORDS SUMMARY | 2024-08-02 15:10 | XMS_ITS | Encounter Summary ---
[facility] [address] [place] [address] Care Team Providers Care Records Assistant Name Role Phone Huber Grossman MD Primary Care Provider Barbara valladares Reason for Visit * Reason Comments Med Refill Encounter Details Date Type Department Care Team (Late st Contact Info) Description 11/08/2018 Refill [facility] [address] [facility] [address] [place] [phone] Huber Grossman MD Social History Tobacco Use [...] on filedocumented in this encounter Care Teams Records Assistant Relationship Specialty Start Date End Date Huber Grossman MD PCP - General Family Medicine 02/08/18 09/28/19 documented as of this encounter
--- OUTSIDE RECORDS SUMMARY | 2024-08-02 15:10 | XMS_ITS | Encounter Summary ---
Author Organization [facility] Address [address] [place] [address] Care Team Providers Care Spragger Name Role Phone Huber Grossman MD Primary Care Provider Barbara valladares Reason for Referral * Diagnostic Medical (Routine) - Closed Specialty Diagnoses / Procedures Referred By Contac t Referred To Contact Pulmonology Diagnoses Hypoxia Procedures Pulmonary Function Test Luis Galvan MD Phone: tel: fax: [facility] [address] [facility] [place] [address] Phone: tel: fax: Referral ID Status Reason Start Date Expiration Date Visits Re quested Visits Authorized [id number] Closed 12/08/2018 12/08/2019 1 1 Reason for Visit * Reason Comments Hypoxia Laryngeal Spasm Encounter Details Date Type Department Care Team (Late st Contact Info) Description 12/08/2018 11:15 AM EDT Office Visit [facility]UL[facility] MEDICINE [address] [place] [address] Luis Galvan MD [address] [place] [address] Hypoxia (Primary Dx); Obesity hypoventilation syndrome; DELL (No follow-up); Class 3 severe obesity (BMI 55); H/O Asthma; GERD Social History Tobacco Use [...] Sign Reading Time Taken Comments Blood Pressure 126/82 12/08/2018 11:07 AM EDT Pulse 85 12/08/2018 11:07 AM EDT Temperature 36.8 ??C (98.2 ??F) 12/08/2018 1 1:07 AM EDT Respiratory Rate - - Oxygen Saturation 92% 12/08/2018 11: 07 AM EDT resting, room air Inhaled Oxygen Concentration - - Weight 133 kg (293 lb 9.6 oz) 12/08/2018 11:07 AM EDT Height 156.2 cm (5' 1.5 ) 12/08/2018 11 :07 AM EDT Body Mass Index 54.58 12/08/2018 11:07 AM EDT documented in this encounter Progress Notes * Luis Galvan MD - 12/08/2018 11:15 AM EDT PULMONARY NOTE Chief Complaint History of asthma, history of perennial rhinitis, hypertension, obesity, diabetes, nocturnal hypoxemia History of Present Illness 68-year-old white female referred for further evaluation of pulmonary issues. Patient has a history of childhood asthma. She has had persistent issues with asthma as an adult. She has been on Symbicort 162 puffs twice a day with albuterol on an as-needed basis. She typically uses Xopenex when she needs to, but has used it rarely. Overall she has felt that her asthma symptoms are better and has only been using her Symbicort 162 puffs once a day. In the last year she has had one exacerbation of bronchitis/asthma which was treated with a course of prednisone and antibiotics. She has regular reflux symptoms. She does not have the head of her bed elevated. She does try to avoid eating before going to bed at night. She has a history of Mukherjee's esophagus She takes a daily acid assistant broker and would have significantly worse symptoms without that medication. She has a history of multiple allergies. She has been followed by Zena Carey at [facility]. Immunotherapy has never been recommended. She uses a nasal spray on a regular basis. She has a history of obstructive sleep apnea. She underwent a home sleep study at [facility] a while ago which was apparently positive. She was supposed to go in for a titration sleep study which she never did. She has nocturnal hypoxemia and uses supplemental oxygen every night. She is morbidly obese with a BMI of nearly 55. Patient Active Problem List Diagnosis ??? Edema, peripheral ??? Anxiety, generalized ??? HLD (hyperlipidemia) ??? BP (high blood pressure) ??? Laryngeal spasm ??? Vertigo ??? Diabetes mellitus (CMS/HCC) ??? H/O Asthma ??? Perennial rhinitis ??? Class 3 severe (BMI 55) ??? GERD ??? Mukherjee esophagus ??? DELL (No follow-up) ??? Obesity hypoventilation syndrome (CMS/HCC) Allergies Allergen Reactions ??? Codeine Anaphylaxis ??? [...] Anxiety., Disp: 30 tablet, Rfl: 1 ??? diltiaZEM SR (CARDIZEM SR) [...] by mouth Daily., Disp: 90 capsule, Rfl: 0 ??? topiramate (TOPAMAX) 25 MG tablet, Take 1 tablet by mouth every night at bedtime. For tremor, Disp: 30 tablet, Rfl: 2 ??? triamterene-hydrochlorothiazide (MAXZIDE-25) 37.5-25 MG per tablet, Take 1 tablet by mouth Daily., Disp: 30 tablet, Rfl: 1 MEDICATION LIST AND ALLERGIES REVIEWED. Family History [...] SCANNED ROS SHEET FROM SAME DATE. BP 126/82 Pulse 85 Temp 98.2 ??F (36.8 ??C) Ht 156.2 cm (61.5 ) Wt 133 kg (293 lb 9.6 oz) SpO2 92% Comment: resting, room air BMI 54.58 kg/m?? Physical Exam Constitutional: She is oriented to person, place, and time. She appears well- developed. No distress. HENT: Head: Normocephalic and atraumatic. Neck: No thyromegaly present. Cardiovascular: Normal rate and regular rhythm. No murmur heard. Pulmonary/Chest: Effort normal. No stridor. No wheezes or crackles Abdominal: Obese, soft, bowel sounds present Musculoskeletal: Normal range of motion. Pitting ankle edema Lymphadenopathy: She has no cervical adenopathy. Right: No supraclavicular and no epitrochlear adenopathy present. Left: No supraclavicular and no epitrochlear adenopathy present. Neurological: She is alert and oriented to person, place, and time. Skin: Skin is warm and dry. She is not diaphoretic. Psychiatric: She has a normal mood and affect. Her behavior is normal. Nursing note and vitals reviewed. Results PFTs reveal no airway obstruction, no restriction, and a normal diffusion capacity Chest x-ray done at [facility] on 11/30/2018 revealed borderline cardiomegaly but no evidence of active disease Problem List ICD-10-CM ICD-9-CM 1. Hypoxia R09.02 799.02 2. Obesity hypoventilation syndrome (CMS/HCC) E66.2 278.03 3. DELL (No follow-up) G47.33 327.23 4. Class 3 severe obesity (BMI 55) E66.01 278.01 Z68.43 V85.43 5. H/O Asthma J45.909 493.90 6. GERD K21.9 530.81 Discussion We discussed her test results. While she has a history of asthma, she has no evidence of airway obstruction on current PFTs. This does not exclude asthma as a cause of at least some component of her symptoms. I recommended that she remain on Symbicort with albuterol on an as-needed basis. We discussed the pros/cons of using 2 puffs of Symbicort 160 a day versus 2 puffs twice a day of Symbicort 80 a day. She has untreated sleep apnea. She never went back for her titration sleep study. I suspect that this is a significant contributing factor to her multiple symptoms and problems We will schedule her for a titration sleep study. Reflux may be playing a role in her periodic choking and bronchitis symptoms. We discussed reflux precautions I gave her a reflux information sheet. I recommend she remain on the OTC regimen for her sinus symptoms. Weight loss is imperative. I will plan to see her back in a couple of months after the above Luis Galvan MD Note electronically signed CC: Huber Grossman MD documented in this encounter Plan of Treatment Not on file documented as of this encounter Procedures Procedure Name Priority Date/Time Associated Diagnosis Comments PULMONARY FUNCTION TEST Routine 12/08/2018 10:34 AM EDT Hypoxia documented in this encounter Results * Pulmonary Function Test (12/08/2018 10:34 AM EDT) Luis Galvan MD PFT ORDERABLES Final R esult documented in this encounter Visit Diagnoses Diagnosis Hypoxia- Primary Hypoxemia Obesity hypoventilation syndrome DELL (No follow-up) Obstructive sleep apnea (adult) (pediatric) Class 3 severe obesity (BMI 55) H/O Asthma GERD documented in this encounter Care Teams Spragger Relationship Specialty Start Date End Date Huber Grossman MD PCP - General Family Medicine 02/08/18 09/28/19 documented as of this encounter
--- OUTSIDE RECORDS SUMMARY | 2024-08-02 15:10 | XMS_ITS | Encounter Summary ---
Author Organization [facility] Address [address] [place] [address] Care Team Providers Care Sdc Teacher Name Role Phone Huber Grossman MD Primary Care Provider Barbara valladares Reason for Visit * Reason Onset Date Comments AH- lab order 08/02/2019 Encounter Details Date Type Department Care Team (Late st Contact Info) Description 08/02/2019 Telephone [facility] MEDICINE [address] [facility] [address] [place] [address] Huber Grossman MD AH- lab order Social History Tobacco Use Types Packs/Day Years [...] Telephone Encounter - Remigio Morton MA - 08/02/2019 5:03 PM EST Pt spoke with Dr. Grossman. * Telephone Encounter - Tierra Davila - 08/02/2019 4:10 PM EST Patient is needing an order added to the one at [facility] to test (Blood Culture) for what type of cellulitis she has, patient has no issues at all with urine. Please call this order in for her, she has appointment tomorrow and would like to get this taken care of, said this is the 6 th time she has called. documented in this encounter Plan of Treatment Not on file documented as of this encounter Visit Diagnoses Not on filedocumented in this encounter Care Teams Sdc Teacher Relationship Specialty Start Date End Date Huber Grossman MD PCP - General Family Medicine 02/08/18 09/28/19 documented as of this encounter
--- OUTSIDE RECORDS SUMMARY | 2024-08-02 15:10 | XMS_ITS | Encounter Summary ---
Author Organization [facility] Address [address] [place] [address] Care Team Providers Care Chief Engineering Division Name Role Phone Huber Grossman MD Primary Care Provider Barbara valladares Encounter Details Date Type Department Care Team (Late st Contact Info) Description 01/06/2019 Telephone [facility] [address] Remigio Morton MA Social History [...] Telephone Encounter - Remigio Morton MA - 01/06/2019 5:10 PM EDT Pt was informed and she verbalized understanding. Triston CHAUHAN ----- Message from Huber Grossman MD sent at 01/06/2019 3:49 PM EDT ----- Regarding: RE: PLEASE CALL Contact: One of the docs at [facility] can do it hubbard or maritza? ----- Message ----- From: Remigio Morton MA Sent: 01/06/2019 3:12 PM To: Huber Grossman MD Subject: FW: PLEASE CALL ----- Message ----- From: Maria E Hughesil Sent: 01/06/2019 2:40 PM To: Remigio Morton MA Subject: PLEASE CALL PLEASE CALL REGARDING RECOMMENDATIONS FOR SCHOOL AIDE FOR CATARACT SURGERY. documented in this encounter Plan of Treatment Not on file documented as of this encounter Visit Diagnoses Not on filedocumented in this encounter Care Teams Chief Engineering Division Relationship Specialty Start Date End Date Huber Grossman MD PCP - General Family Medicine 02/08/18 09/28/19 documented as of this encounter
--- OUTSIDE RECORDS SUMMARY | 2024-08-02 15:11 | XMS_ITS | Encounter Summary ---
Author Organization [facility] Address [address] [place] [address] Care Team Providers Care Drywall Sprayer Name Role Phone Huber Grossman MD Primary Care Provider Barbara valladares Encounter Details Date Type Department Care Team (Late st Contact Info) Description 05/03/2018 Telephone [facility] FAMILY MEDICINE [address] [place] [phone] Remigio Morton MA Social History Tobacco Use Types Packs/Day Years Used Date Smoking Tobacco: Former Smokeless Tobacco: Never Alcohol Use Standard Drinks/Week Comments No 0 (1 standard drink = 0.6 oz pur e alcohol) Comments No Sex and Gender Information Value Date Recorded Sex Assigned at Not on file Legal Sex Female 12:36 PM EDT Gender Identity Not on file Sexual Orientation Not on file documented as of this encounter Miscellaneous Notes * Telephone Encounter - Remigio Morton MA - 05/03/2018 2:06 PM EDT Called informed pt., she verbalized understandingViolet Morton RMA ----- Message from Huber Grossman MD sent at 05/03/2018 11:31 AM EDT ----- Regarding: RE: PLEASE CALL Contact: Level is low so a monthly B12 is advised ----- Message ----- From: Remigio Morton MA Sent: 05/03/2018 9:40 AM To: Huber Grossman MD Subject: FW: PLEASE CALL ----- Message ----- From: Lana Pride Janice Sent: 05/03/2018 9:15 AM To: Remigio Morton MA Subject: PLEASE CALL WAS TOLD HER B12 IS SERIOUSLY LOW AND NEEDS TO START INJECTIONS. [facility] PLEASE CALL AND ADVISE documented in this encounter Plan of Treatment Not on file documented as of this encounter Visit Diagnoses Not on filedocumented in this encounter Care Teams Drywall Sprayer Relationship Specialty Start Date End Date Huber Grossman MD PCP - General Family Medicine 02/08/18 09/28/19 documented as of this encounter
--- OUTSIDE RECORDS SUMMARY | 2024-08-02 15:11 | XMS_ITS | Encounter Summary ---
Author Organization [facility] Address [address] [place] [address] Care Team Providers Care Non Destructive Testing Scientist Name Role Phone Unavailable Primary Care Provider Unavailabl e Encounter Details Date Type Department Care Team (Late st Contact Info) Description 06/21/2014 Office Visit Converted [facility] FAMILY MEDICINE [address] [facility] [address] [place] [address] Fred Hinojosa MD [address] [facility] [address] [place] [address] Social History Tobacco Use Types Packs/Day Years Used Date Smoking Tobacco: Never Assessed Comments Unknown Sex and Gender Information Value Date Recorded Sex Assigned at Not on file Legal Sex Female 12:36 PM EDT Gender Identity Not on file Sexual Orientation Not on file documented as of this encounter Last Filed Vital Signs Vital Sign Reading Time Taken Comments Blood Pressure 110/70 06/21/2014 11:44 AM EDT Pulse 92 06/21/2014 11:44 AM EDT Temperature 36.8 ??C (98.2 ??F) 06/21/2014 11:44 AM E DT Respiratory Rate 16 06/21/2014 11:44 AM EDT Oxygen Saturation - - Inhaled Oxygen Concentration - - Weight 116 kg (255 lb 0.1 oz) 06/21/2014 11:44 A M EDT Height 160 cm (5' 3 ) 06/21/2014 11:44 AM EDT Body Mass Index 45.17 06/21/2014 11:44 AM EDT documented in this encounter Progress Notes * Fred Hinojosa MD - 06/21/2014 11:00 AM EDT Chief Complaint URI / Anxiety History of Present Illness Re-evaul on URI, and anxiety. Needs refill on alprazolam Took Medrol dose pack and Z pack. Went into Atrial fibrillation admitted to [facility]. Thought it may have been from decongestants On diltiazem Not sleeping, recalls seeing dad have heart attack years ago and fears that this will happen to her. Missed several days of work. Uses advair to help asthma. Review of Systems Constitutional: negative. Head and Face: negative. Eyes: negative. ENT: negative. Cardiovascular: negative. Respiratory: negative. Gastrointestinal: negative. Genitourinary: negative. Musculoskeletal: negative. Integumentary and Breasts: negative. Neurological: negative. Psychiatric: negative. Endocrine: negative. Hematologic and Lymphatic: negative. Past 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 1. History of Allergic rhinitis due to pollen (477.0) 2. History of Bone Density Studies 3. History of Colonoscopy (Fiberoptic) 4. History of hyperlipidemia (V12.29) 5. History of hypertension (V12.59) 6. History of osteopenia (V13.59) 7. History of Mammogram 8. History of Overweight (278.02) Surgical History 1. History of Total Abdominal Hysterectomy Social History 1. Former smoker (V15.82) Current Meds Medication Name Instruction Advair Diskus 500-50 MCG/DOSE Inhalation Aerosol Powder Breath Activated INHALE 1 PUFF TWICE DAILY. ALPRAZolam 0.5 MG Oral Tablet TAKE 1 TABLET Daily PRN Aspirin EC 81 MG Oral Tablet Delayed Release Take 1 tablet daily Benicar 20 MG Oral Tablet Take 1 tablet twice daily Budesonide 0.5 MG/2ML Inhalation Suspension USE 1 VIAL IN NEBULIZER ONCE DAILY. INCREASE TO TWICE DAILY WITH ILLNESS. Diltiazem HCl ER Coated Beads 120 MG Oral Capsule Extended Release 24 Hour TAKE 1 CAPSULE DAILY. Fish Oil CAPS Lipitor 40 MG Oral Tablet Take 1 tablet daily Loratadine 10 MG Oral Tablet Vitamin D 1000 UNIT Oral Tablet Xopenex HFA 45 MCG/ACT Inhalation Aerosol Allergies 1. Ciprofloxacin HCl TABS 2. Codeine Derivatives 3. Iodinated Contrast Media 4. Penicillins Vitals Recorded: 21Jun2014 11:44AM Temperature 98.2 F Heart Rate 92 Respiration 16 Systolic 110 Diastolic 70 Height 5 ft 3 in Weight 255 lb BMI Calculated 45.17 BSA Calculated 2.14 Physical Exam Constitutional General appearance: No acute distress, well appearing and well nourished. Overweight. Ears, Nose, Mouth, and Throat External inspection of ears and nose: Normal. Oropharynx: Normal with no erythema, edema, exudate or lesions. Pulmonary Respiratory effort: No increased work of breathing or signs of respiratory distress. Auscultation of lungs: Abnormal. Wheezing over the left midlung field. Cardiovascular Auscultation of heart: Normal rate and rhythm, normal S1 and S2, without murmurs. No murmurs were heard. Neurologic Cranial nerves: Cranial nerves 2-12 intact. Intact. Assessment 1. Hypertension (401.9) 2. Anxiety (300.00) Plan Anxiety 1. Start: ALPRAZolam 0.5 MG Oral Tablet; Take one twice a day as needed Discussion/Summary samples of Advair Future Appointments Date/Time Provider Specialty Site 06/23/2014 02:30 PM Huber Grossman M.D. Family Medicine [facility] Signatures Electronically signed by : Fred Hinojosa M.D.; Jun 21 2014 12:28PM EST (Author) documented in this encounter Miscellaneous Notes * Letter - Interface, See Report - 06/21/2014 11:00 AM EDT MIRTHA MARLYSSATINDER, has been under my care and was unable to attend work from 06/21 to [ ]. MIRTHA may return to work on 06/22 with the following restrictions: No restrictions or limitations. If you have any questions or concerns please call my office at the above number. : tao hinojosa documented in this encounter Plan of Treatment Not on file documented as of this encounter Visit Diagnoses Not on filedocumented in this encounter
--- OUTSIDE RECORDS SUMMARY | 2024-08-02 15:11 | XMS_ITS | Encounter Summary ---
Author Organization [facility] Address [address] [place] [address] Care Team Providers Care Cable Way Operator Name Role Phone Unavailable Primary Care Provider Unavailabl e Encounter Details Date Type Department Care Team (Late st Contact Info) Description 08/28/2014 Documentation [facility] HISTORICAL CONV [address] [place] [address] ProviderCaden MD [address] [place] [address] Social History Tobacco Use Types Packs/Day Years Used Date Smoking Tobacco: Never Assessed Comments Unknown Sex and Gender Information Value Date Recorded Sex Assigned at Not on file Legal Sex Female 12:36 PM EDT Gender Identity Not on file Sexual Orientation Not on file documented as of this encounter Progress Notes * Fred Flynn MD - 08/28/2014 7:14 PM EST Verified Results In Office A1C [id number] 01:26PM Fred Flynn Test Name Result Flag Reference A1C 6.1 CBC w Auto Diff [id number] 10:21AM Fred Flynn Test Name Result Flag Reference Abs Baso 0.04 K/mcL 0.00-0.20 WBC 7.58 K/mcL 3.50-10.80 RBC 4.67 M/mcL 3.89-5.14 Hemoglobin 14.3 g/dL 11.5-15.5 Hematocrit 43.6 % 34.5-44.0 MCV 93.4 fL 80.0-99.0 MCH 30.6 pg 27.0-31.0 MCHC 32.8 g/dL 32.0-36.0 Platelet 278 K/mcL 150-450 Neutrophils 57.9 % 41.0-71.0 Lymphocytes 32.6 % 24.0-44.0 Monocytes 6.9 % 0.0-12.0 Eosinophils 2.0 % 0.0-3.0 Basophils 0.5 % 0.0-1.0 Abs Neutrophil 4.39 K/mcL 1.50-8.30 Abs Lymph 2.47 K/mcL 0.60-4.80 Abs [place] 0.52 K/mcL 0.00-1.00 Abs Eos 0.15 K/mcL 0.10-0.30 Immature Gran 0.1 % 0.0-0.6 RDWCV 13.3 % 11.3-14.5 CMP [id number] 10:21AM [employer] HoldingteddyCompring, Fred Test Name Result Flag Reference Glucose 98 mg/dL 70-100 Creatinine 0.6 mg/dL 0.6-1.3 BUN 16 mg/dL 9-23 Sodium 140 mmol/L 132-146 Potassium 4.3 mmol/L 3.5-5.5 Chloride 104 mmol/L 99-109 Carbon Dioxide 30 mmol/L 20-31 Calcium 10.1 mg/dL 8.7-10.4 Total Protein 7.2 g/dL 5.7-8.2 Albumin 4.1 g/dL 3.2-4.8 Bilirubin,Total 0.4 mg/dL 0.3-1.2 Alkaline Phos 102 Units/L H 25-100 AST 19 Units/L 0-33 ALT 15 Units/L 7-40 Anion Gap 6 mmol/L 3-11 Ext. MDRD GFR 101 ml/min/1.732 [employer] Guidelines Stage Description GFR 1 Normal or High 90+ 2 Mild decrease 60-89 3 Moderate decrease 30-59 4 Severe decrease 15-29 5 Kidney failure <15 Lipid Profile ( Comprehensive Panel ) [id number] 10:21AM Rina, Edward Test Name Result Flag Reference Cholesterol 255 mg/dL H 0-200 Cholesterol Reference Ranges: Desirable: less than 200 mg/dL Borderline: 200-239 mg/dL High: greater than 239 mg/dL Triglycerides 182 mg/dL H 0-150 Triglyceride Reference Ranges: Normal less than 150 mg/dL Borderline 150-199 mg/dL High 200-499 mg/dL Very High greater than 499 mg/dL HDL 47 mg/dL 40-60 HDL Cholesterol Reference Ranges: Low less than 40 mg/dL High greater than 59 mg/dL LDL Chol, Direct 211 mg/dL H 0-130 LDL Cholesterol Reference Ranges: Optimal less than 100 mg/dL Near Optimal 100-129 mg/dL Borderline 130-159 mg/dL High 160-189 mg/dL Very High greater than 189 mg/dL Fasting Yes - Y TSH [id number] 10:21AM Fred Flynn Test Name Result Flag Reference TSH 2.930 UIU/mL 0.350-5.350 Specimens containing fluorescein can produce falsely depressed values with this assay. Patients undergoing fluorescein dye angiography should wait 72 hours post-treatment before testing. Ferritin [id number] 10:21AM Fred Flynn Test Name Result Flag Reference Ferritin 244 ng/mL 10-291 Iron , Serum [id number] 10:21AM Fred Flynn Test Name Result Flag Reference Iron 81 mcg/dL 50-175 Discussion/Summary Your tests showed cholesterol elevation that in not adequetly addressed. Your liver alkaline phophatase was mildly elevated as seen with galllbladder problems. Iron levels were well in the normal range. Awaiting the reports from the ultrasound on your gallbladder. documented in this encounter Plan of Treatment Not on file documented as of this encounter Visit Diagnoses Not on filedocumented in this encounter
--- OUTSIDE RECORDS SUMMARY | 2024-08-02 15:11 | XMS_ITS | Encounter Summary ---
[facility] Organization [facility] Address [address] [place] [address] Care Team Providers Care Cooker Pie Filling Name Role Phone Unavailable Primary Care Provider Unavailabl e Encounter Details Date Type Department Care Team (Late st Contact Info) Description 05/19/2014 Office Visit Converted [facility] [address] [address] Huber Grossman MD Social History [...] Sign Reading Time Taken Comments Blood Pressure 130/72 05/19/2014 2:08 PM EDT Pulse 78 05/19/2014 2:08 PM EDT Temperature - - Respiratory Rate 16 05/19/2014 2:08 PM EDT Oxygen Saturation - - Inhaled Oxygen Concentration - - Weight - - Height - - Body Mass Index - - documented in this encounter Progress Notes * Huber Grossman MD - 05/19/2014 2:30 PM EDT Chief Complaint Re-Eval Laryngotracheobronchitis , History of Present Illness HPI: Patient is having trouble with laryngospasm again this had to be hospitalized at [facility] and has been to the emergency room Advair seemed to control at most but she cannot get iton her current insurance policy. She is currently not symptomatic but is anxious that she will have another attack and not make it to the hospital. She has seen an ENT doctor recently at [facility]. Review of Systems Constitutional: as noted in HPI, no fever and no chills. ENT: as noted in HPI. Cardiovascular: negative. Respiratory: as noted in HPI. Gastrointestinal: negative. Musculoskeletal: negative. Neurological: negative. Active Problems 1. Asthma (493.90) 2. Generalized anxiety disorder (300.02) 3. Hyperlipidemia (272.4) 4. Hypertension (401.9) 5. Laryngotracheobronchitis (490) Past 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 ?? History of Allergic rhinitis due to pollen (477.0) ?? History of Anxiety (300.00) ?? History of Bone Density Studies ?? History of Colonoscopy (Fiberoptic) ?? History of hyperlipidemia (V12.29) ?? History of hypertension (V12.59) ?? History of osteopenia (V13.59) ?? History of Mammogram ?? History of Overweight (278.02) Surgical History ?? History of Total Abdominal Hysterectomy Current Meds Medication Name Instruction Advair Diskus 500-50 MCG/DOSE Inhalation Aerosol Powder Breath Activated INHALE 1 PUFF TWICE DAILY. ALPRAZolam 0.5 MG Oral Tablet TAKE 1 TABLET Daily PRN Aspirin EC 81 MG Oral Tablet Delayed Release Take 1 tablet daily Benicar 20 MG Oral Tablet Take 1 tablet twice daily Diltiazem HCl ER Coated Beads 120 MG Oral Capsule Extended Release 24 Hour TAKE 1 CAPSULE DAILY. Fish Oil CAPS Lipitor 40 MG Oral Tablet Take 1 tablet daily Loratadine 10 MG Oral Tablet Simvastatin 10 MG Oral Tablet TAKE 1 TABLET BY MOUTH AT BEDTIME Vitamin D 1000 UNIT Oral Tablet Xopenex HFA 45 MCG/ACT Inhalation Aerosol Allergies 1. Ciprofloxacin HCl TABS 2. Codeine Derivatives 3. Iodinated Contrast Media 4. Penicillins Vitals Signs [Data Includes: Current Encounter] Heart Rate: 78 Respiration: 16 Systolic: 130 Diastolic: 72 Comments:: PATIENT DECLINED Physical Exam Constitutional General appearance: No acute distress, well appearing and well nourished. Eyes Conjunctiva and lids: No swelling, erythema or discharge. Pupils and irises: Equal, round and reactive to light. Ears, Nose, Mouth, and Throat External inspection of ears and nose: Normal. Oropharynx: Normal with no erythema, edema, exudate or lesions. Pulmonary Respiratory effort: No increased work of breathing or signs of respiratory distress. Auscultation of lungs: Clear to auscultation. Cardiovascular Auscultation of heart: Normal rate and rhythm, normal S1 and S2, without murmurs. Examination of extremities for edema and/or varicosities: Normal. Neurologic Intact. Psychiatric Orientation to person, place, and time: Normal. Mood and affect: Normal. Assessment 1. Hypertension (401.9) 2. Laryngospasm (478.75) Plan Health Maintenance ?? Administered: Tdap (Boostrix) Discussion/Summary I recommend she go back to her translator interpreter for further evaluation and recommendations as to what may be triggering her spasms meanwhile and given her some samples of Advair, Qvar, and Breo. If translator interpreter is not able to help we may need to consider pulmonary evaluation. End of Encounter Meds Medication Name Instruction Advair Diskus 500-50 MCG/DOSE Inhalation Aerosol Powder Breath Activated INHALE 1 PUFF TWICE DAILY. ALPRAZolam 0.5 MG Oral Tablet TAKE 1 TABLET Daily PRN Aspirin EC 81 MG Oral Tablet Delayed Release Take 1 tablet daily Benicar 20 MG Oral Tablet Take 1 tablet twice daily Diltiazem HCl ER Coated Beads 120 MG Oral Capsule Extended Release 24 Hour TAKE 1 CAPSULE DAILY. Fish Oil CAPS Lipitor 40 MG Oral Tablet (Atorvastatin Calcium) Take 1 tablet daily Loratadine 10 MG Oral Tablet Simvastatin 10 MG Oral Tablet TAKE 1 TABLET BY MOUTH AT BEDTIME Vitamin D 1000 UNIT Oral Tablet Xopenex HFA 45 MCG/ACT Inhalation Aerosol Future Appointments Date/Time Provider Specialty Site 06/23/2014 02:30 PM Huber Grossman M.D. Family Medicine [facility] Signatures Electronically signed by : Huber Grossman M.D.; May 21 2014 9:27PM EST (Author) documented in this encounter Plan of Treatment Not on file documented as of this encounter Visit Diagnoses Not on filedocumented in this encounter
--- OUTSIDE RECORDS SUMMARY | 2024-08-02 15:11 | XMS_ITS | Encounter Summary ---
Author Organization [facility] Address [address] [place] [address] Care Team Providers Care Dispatcher Radioactive Waste Disposal Name Role Phone Huber Grossman MD Primary Care Provider Barbara valladares Reason for Visit * Reason Onset Date Comments Med Refill 03/19/2018 Encounter Details Date Type Department Care Team (Late st Contact Info) Description 03/19/2018 Refill [facility] [address] [facility] [address] [place] [id number] Huber Grossman MD Social History Tobacco Use Types Packs/Day Years Used Date Smoking Tobacco: Never Assessed Comments Unknown Sex and Gender Information Value Date Recorded Sex Assigned at Not on file Legal Sex Female 12:36 PM EDT Gender Identity Not on file Sexual Orientation Not on file documented as of this encounter Miscellaneous Notes * Telephone Encounter - Remigio Morton MA - 03/23/2018 9:17 AM EDT Pt has written Rx * Telephone Encounter - Huber Grossman MD - 03/22/2018 8:04 AM EDT Looks like is written by someone else? * Telephone Encounter - Remigio Morton MA - 03/19/2018 12:15 PM EDT . documented in this encounter Plan of Treatment Not on file documented as of this encounter Visit Diagnoses Not on filedocumented in this encounter Care Teams Dispatcher Radioactive Waste Disposal Relationship Specialty Start Date End Date Huber Grossman MD PCP - General Family Medicine 02/08/18 09/28/19 documented as of this encounter
--- OUTSIDE RECORDS SUMMARY | 2024-08-02 15:11 | XMS_ITS | Encounter Summary ---
Author Organization [facility] Address [address] [place] [address] Care Team Providers Care Full Roll Inspector Name Role Phone Unavailable Primary Care Provider Unavailabl e Encounter Details Date Type Department Care Team (Late st Contact Info) Description 07/11/2014 Office Visit Converted [facility] [address] [facility] [address] [place] [address] Fred Flynn MD [address] [facility] [address] [place] [address] Social History Tobacco Use Types Packs/Day Years Used Date Smoking Tobacco: Never Assessed Comments Unknown Sex and Gender Information Value Date Recorded Sex Assigned at Not on file Legal Sex Female 12:36 PM EDT Gender Identity Not on file Sexual Orientation Not on file documented as of this encounter Last Filed Vital Signs Vital Sign Reading Time Taken Comments Blood Pressure 120/80 07/11/2014 2:03 PM EST Pulse 88 07/11/2014 2:03 PM EST Temperature 37.1 ??C (98.8 ??F) 07/11/2014 2:03 PM ES T Respiratory Rate 16 07/11/2014 2:03 PM EST Oxygen Saturation - - Inhaled Oxygen Concentration - - Weight 121 kg (266 lb 0.1 oz) 07/11/2014 2:03 PM EST Height 160 cm (5' 3 ) 07/11/2014 2:03 PM EST Body Mass Index 47.12 07/11/2014 2:03 PM EST documented in this encounter Progress Notes * Fred Flynn MD - 07/11/2014 2:10 PM EST Chief Complaint Sore throat History of Present Illness Sore throat, drainage, dry cough four days, took no medication. Feverish. Review of Systems Constitutional: negative. Head and Face: negative. Eyes: negative. ENT: sore throat. Cardiovascular: negative. Respiratory: cough and dry cough. Gastrointestinal: negative. Genitourinary: negative. Musculoskeletal: negative. Integumentary [...] Oral Tablet TAKE 1 TABLET Daily PRN ALPRAZolam 0.5 MG Oral Tablet Take one twice a day as needed Aspirin EC 81 MG Oral Tablet Delayed [...] Iodinated Contrast Media 4. Penicillins Vitals Recorded: 11Jul2014 02:03PM Temperature 98.8 F Heart Rate 88 Respiration 16 Systolic 120 Diastolic 80 Height 5 ft 3 in Weight 266 lb BMI Calculated 47.12 BSA Calculated 2.18 Physical Exam Constitutional General appearance: Abnormal. Uncomfortable and overweight. Ears, Nose, Mouth, and Throat External inspection of ears and nose: Normal. Otoscopic examination: Tympanic membranes translucent with normal light reflex. Canals patent without erythema. Oropharynx: Abnormal. The tonsils were present. There was 2+ enlargement and erythema of both tonsils exudate. The posterior pharynx was erythematous. Pulmonary Respiratory effort: No increased work of breathing or signs of respiratory distress. Assessment 1. Pharyngitis (462) Plan Pharyngitis 1. Start: Clindamycin HCl - 150 MG Oral Capsule; TAKE 1 CAPSULE EVERY 6 HOURS DAILY Discussion/Summary ten days of clindamycin for the throat infection Injection Lincocin 300 mg Signatures Electronically signed by : Fred Flynn M.D.; Jul 11 2014 3:03PM EST (Author) documented in this encounter Plan of Treatment Not on file documented as of this encounter Visit Diagnoses Not on filedocumented in this encounter
--- OUTSIDE RECORDS SUMMARY | 2024-08-02 15:11 | XMS_ITS | Encounter Summary ---
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 [address] [place] [address] Phone: tel: fax: Referral ID Status Reason Start Date Expiration Date V isits Requested Visits Authorized [id number] Closed Specialty Services Required 04/08/2018 04/08/2019 1 1 * Consultation (Routine) - Closed Specialty Diagnoses / Procedures Referred By Contac t Referred To Contact Neurology Diagnoses Tremor Huber Grossman MD [facility] [address] [facility] [address] [place] [address] Phone: tel: fax: Referral ID Status Reason Start Date Expiration Date V isits Requested Visits Authorized [id number] Closed Specialty Services Required 04/08/2018 04/08/2019 1 1 Reason for Visit * Reason Comments Hypothyroidism Follow up A1c Encounter Details Date Type Department Care Team (Late st Contact Info) Description 04/08/2018 1:45 PM EDT Office Visit [address] [phone] Huber Grossman MD Elevated glucose (Primary Dx); Class 1 obesity due to excess calories in adult, unspecified BMI, unspecified whether serious comorbidity present; Tremor; 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; Screening for colon cancer Social History Tobacco Use Types Packs/Day Years Used Date Smoking Tobacco: Former Smokeless Tobacco: Never Alcohol Use Standard Drinks/Week Comments No 0 (1 standard drink = 0.6 oz pur e alcohol) Comments Unknown Sex and Gender Information Value Date Recorded Sex Assigned at Not on file Legal Sex Female 12:36 PM EDT Gender Identity Not on file Sexual Orientation Not on file documented as of this encounter Last Filed Vital Signs Vital Sign Reading Time Taken Comments Blood Pressure 140/84 04/08/2018 1:51 PM EDT Pulse 90 04/08/2018 1:51 PM EDT Temperature 36.7 ??C (98 ??F) 04/08/2018 1:51 PM EDT Respiratory Rate - - Oxygen Saturation 98% 04/08/2018 1:51 PM EDT Inhaled Oxygen Concentration - - Weight 141 kg (311 lb) 04/08/2018 1:51 PM EDT Height - - Body Mass Index 55.09 02/24/2018 1:12 PM EDT documented in this encounter Progress Notes * Huber Grossman MD - 04/08/2018 1:45 PM EDT Subjective Mirtha Mayberry is a 68 y.o. female. Hypothyroidism This is a chronic problem. The current episode started more than 1 year ago. The problem has been unchanged. Associated symptoms include arthralgias, myalgias and neck pain. Pertinent negatives include no chest pain, chills, congestion, coughing, fever, nausea, sore throat or vomiting. Nothing aggravates the symptoms. The treatment provided significant relief. Shaking This is a chronic (tremor of the hands right side is worse also complains of poor balance was tested for Parkinson's at [facility] and was told she did not have) problem. The current episode started more than 1 month ago. The problem occurs constantly. The problem has been gradually worsening. Associated symptoms include arthralgias, myalgias and neck pain. Pertinent negatives includeno chest pain, chills, congestion, coughing, fever, nausea, sore throat or vomiting. The symptoms are aggravated by stress (a for occult the holding a fork). The treatment provided no relief. The following portions of the patient's history were reviewed and updated as appropriate: allergies, current medications, past social history and problem list. Review of Systems Constitutional: Negative for chills and fever. HENT: Negative for congestion and sore throat. Respiratory: Positive for shortness of breath. Negative for cough. Needs oxygen reapproved Cardiovascular: Positive for leg swelling. Negative for chest pain. Gastrointestinal: Negative for diarrhea, nausea and vomiting. Genitourinary: Negative for dysuria and hematuria. Musculoskeletal: Positive for arthralgias, back pain, gait problem, myalgias, neck pain and neck stiffness. Fell and hurt her right shoulder while on vacation Skin: Negative. Neurological: Positive for light-headedness. Negative for syncope. Psychiatric/Behavioral: Positive for sleep disturbance. The patient is nervous/anxious. Objective BP 140/84 (BP Location: Left arm, Patient Position: Sitting, Cuff Size: Large Adult) Pulse 90 Temp 98 ??F (36.7 ??C) Wt (!) 141 kg (311 lb) SpO2 98% BMI 55.09 kg/m?? Physical Exam Constitutional: She is oriented to person, place, and time. She appears well- developed and well-nourished. She is cooperative. HENT: Head: Normocephalic. Right Ear: External ear normal. Left Ear: External ear normal. Nose: Nose normal. Mouth/Throat: Oropharynx is clear and moist. Eyes: Pupils are equal, round, and reactive to light. Conjunctivae are normal. No scleral icterus. Neck: Neck supple. No JVD present. Carotid bruit is not present. No thyromegaly present. Cardiovascular: Normal rate, regular rhythm and normal heart sounds. Pulmonary/Chest: Effort normal and breath sounds normal. Abdominal: There is no hepatosplenomegaly. Musculoskeletal: Normal range of motion. She exhibits tenderness. Pain on abduction of the right shoulder but the shoulder is stable there is no effusion financial reporting director and sensation are normal Lymphadenopathy: She has no cervical adenopathy. Neurological: She is alert and oriented to person, place, and time. No focal deficits no lateralizing signs Skin: Skin is warm and dry. No rash noted. Psychiatric: She has a normal mood and affect. Cognition and memory are normal. Nursing note and vitals reviewed. 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 glipiZIDE (GLUCOTROL XL) 5 MG ER tablet Sig: Take 1 tablet by mouth Daily. Dispense: 90 tablet Refill: 1 ??? venlafaxine XR (EFFEXOR-XR) 75 MG 24 hr capsule Sig: Take 1 capsule by mouth Daily. Dispense: 90 capsule Refill: 0 ??? olmesartan (BENICAR) 20 MG tablet Sig: Take 1 tablet by mouth Daily. Dispense: 90 tablet Refill: 1 ??? diltiaZEM SR (CARDIZEM SR) 120 MG 12 hr capsule Sig: Take 1 capsule by mouth Daily. Dispense: 90 capsule Refill: 1 Patient request a referral for EGD and colonoscopy both of which are due there is a history of Mukherjee's. 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
--- OUTSIDE RECORDS SUMMARY | 2024-08-02 15:11 | XMS_ITS | Encounter Summary ---
Author Organization [facility] Address [address] [place] [address] Care Team Providers Care Development Advisor Name Role Phone Huber Grossman MD Primary Care Provider Barbara valladares Reason for Referral * Diagnostic Imaging (Routine) - Closed Specialty Diagnoses / Procedures Referred By Contac t Referred To Contact Radiology Diagnoses Encounter for screening for malignant neoplasm of colon Procedures FL Barium Enema Water Soluble Jacob Nicholas MD [address] [place] [address] Phone: tel: fax: [place] [phone] Phone: tel: Referral ID Status Reason Start Date Expiration Date Visits Re quested Visits Authorized [id number] Closed 05/19/2018 05/19/2019 1 1 Reason for Visit * Diagnostic Imaging (Routine) - Closed Specialty Diagnoses / Procedures Referred By Contac t Referred To Contact Radiology Diagnoses Encounter for screening for malignant neoplasm of colon Procedures FL Barium Enema Water Soluble Jacob Nicholas MD [address] [place] [address] Phone: tel: fax: [place] [phone] Phone: tel: Referral ID Status Reason Start Date Expiration Date Visits Re quested Visits Authorized [id number] Closed 05/19/2018 05/19/2019 1 1 Encounter Details Date Type Department Care Team (Late st Contact Info) Description 05/19/2018 12:58 PM EDT - 05/19/2018 11:59 PM EDT Hospital Encounter [facility] [address] [place] [address] Jacob Nicholas MD [address] [facility] [address] [place] [address] Encounter for screening for malignant neoplasm of colon Discharge Disposition: Home or Self Care Social [...] as directed 30 mL 5 04/27/2018 9 budesonide-formo terol (SYMBICORT) 160-4.5 MCG/ACT inhaler Inhale 2 puffs 2 (Two) Times a Day. 3 inhaler 1 04/28/2018 9 diazePAM (VALIUM) 5 MG tablet Take 5 mg by mouth 2 (Two) Times a Day As Needed for Anxiety. 9 diltiaZEM SR (CARDIZEM SR) 120 MG 12 hr capsule Take 1 capsule by mouth Daily. 90 capsule 1 04/08/2018 9 fluticasone (FLONASE) 50 MCG/ACT nasal spray 2 sprays into the nostril(s) as directed by provider Daily. 3 bottle 1 04/28/2018 2 glipiZIDE (GLUCOTROL XL) 5 MG ER tablet Take 1 tablet by mouth Daily. 90 tablet 1 04/08/2018 9 levalbuterol (XOPENEX HFA) 45 MCG/ACT inhaler Inhale 1-2 puffs Every 4 (Four) Hours As Needed for Wheezing. 2 olmesartan (BENICAR) 20 MG tablet Take 1 tablet by mouth Daily. 90 tablet 1 04/08/2018 9 omeprazole (priLOSEC) 20 MG capsule Take 1 capsule by mouth Daily. 90 capsule 1 04/27/2018 9 primidone (MYSOLINE) 50 MG tablet Start with half a tablet at night for 1 week then increase to 1 tablet at night thereafter 30 tablet 3 04/30/2018 9 rosuvastatin (CRESTOR) 10 MG tablet Take 1 tablet by mouth Every Night. 90 tablet 1 04/28/2018 9 Sod Picosulfate-Mag Ox-Cit Acd 10-3.5-12 MG-GM -GM/160ML solutionIndicati ons:Screening for colon cancer Take 1 kit by mouth Take As Directed. Follow instructions that were mailed to your home. If you didn't receive these call [phone]. 2 bottle 05/17/2018 9 venlafaxine XR (EFFEXOR-XR) 75 MG 24 hr capsule Take 1 capsule by mouth Daily. 90 capsule 04/08/2018 8 documented as of this encounter Plan of Treatment Not on file documented as of this encounter Procedures Procedure Name Priority Date/Time Associated Diagnosis Comments FL BARIUM ENEMA WATER SOLUBLE SINGLE CONTRAST Routine 05/19/2018 2:55 PM EDT Encounter for screening for malignant neoplasm of colon documented in this encounter Results * FL Barium Enema Water Soluble (05/19/2018 2:55 PM EDT) Anatomical Region Laterality Modality Body N/A Radio Fluoroscop y 05/19/2018 3:10 PM EDT Impressions 05/19/2018 10:35 PM EDT Mild redundancy of the sigmoid colon, otherwise barium enema series appeared within normal limits. ?? This report was finalized on 05/19/2018 10:[address] Clay Rodriguez MD. Narrative 05/19/2018 10:35 PM EDT EXAMINATION: FL BARIUM ENEMA WATER SOLUBLE- INDICATION: failed colonoscopy; Z12.11-Encounter for screening for malignant neoplasm of colon TECHNIQUE: 1 minute and 6 seconds of fluoroscopic time was used for this exam. 12 associated images were saved. Ground Wirer imaging reveals a nonobstructive bowel gas pattern. The enema tip was carefully placed in the rectum, and the balloon was inflated. A single contrast study using thin barium was performed. The colon was filled in a retrograde fashion. COMPARISON: NONE FINDINGS: Contrast was seen reaching the cecum. There is mild redundancy of the sigmoid colon. No strictures, or obstructing lesions were seen. No mucosal irregularities, or fixed filling defects were seen. Normal evacuation of contrast was noted. Procedure Note Jess Mireles PA - 05/19/2018 EXAMINATION: FL BARIUM ENEMA WATER SOLUBLE- INDICATION: failed colonoscopy; Z12.11-Encounter for screening for malignant neoplasm of colon TECHNIQUE: 1 minute and 6 seconds of fluoroscopic time was used for this exam. 12 associated images were saved. Ground Wirer imaging reveals a nonobstructive bowel gas pattern. The enema tip was carefully placed in the rectum, and the balloon was inflated. A single contrast study using thin barium was performed. The colon was filled in a retrograde fashion. COMPARISON: NONE FINDINGS: Contrast was seen reaching the cecum. There is mild redundancy of the sigmoid colon. No strictures, or obstructing lesions were seen. No mucosal irregularities, or fixed filling defects were seen. Normal evacuation of contrast was noted. IMPRESSION: Mild redundancy of the sigmoid colon, otherwise barium enema series appeared within normal limits. This report was finalized on 05/19/2018 10:[address] Clay Rodriguez MD. Jacob Nicholas MD IMG FLUOROSCOPY ORDERABLES Final Result documented in this encounter Visit Diagnoses Diagnosis Encounter for screening for malignant neoplasm of colon documented in this encounter Administered Medications Inactive Administered Medications - up to 3 most recent administrations Medication Order MAR Action Action Date Dose Rate Site barium sulfate (LIQUID POLIBAR PLUS) suspension 450 mL 450 mL, Rectal, Once in Imaging, On Thu05/19/18 at 1457, For 1 dose, {BKC} Shake well before administration. Given 05/19/2018 2:55 PM EDT 450 mL documented in this encounter Care Teams Development Advisor Relationship Specialty Start Date End Date Huber Grossman MD PCP - General Family Medicine 02/08/18 09/28/19 documented as of this encounter
--- OUTSIDE RECORDS SUMMARY | 2024-08-02 15:11 | XMS_ITS | Encounter Summary ---
[facility] Address [address] [place] [address] Care Team Providers Care Sorting Supervisor Name Role Phone Huber Grossman MD Primary Care Provider Barbara valladares Reason for Visit * Reason Comments Med Refill Encounter Details Date Type Department Care Team (Late st Contact Info) Description 08/20/[address] [facility] [address] [facility] [address] [place] [address] Huber Grossman MD Social History Tobacco Use [...] on filedocumented in this encounter Care Teams Sorting Supervisor Relationship Specialty Start Date End Date Huber Grossman MD PCP - General Family Medicine 02/08/18 09/28/19 documented as of this encounter
--- OUTSIDE RECORDS SUMMARY | 2024-08-02 15:11 | XMS_ITS | Encounter Summary ---
Author Organization [facility] Address [address] [place] [address] Care Team Providers Care Rigging Foreman Name Role Phone Unavailable Primary Care Provider Unavailabl e Encounter Details Date Type Department Care Team (Late st Contact Info) Description 10/13/2014 7:43 AM EST - 10/13/2014 11:59 PM EST Hospital Encounter [place] [phone] Huber Grossman MD Social History Tobacco Use Types Packs/Day Years Used Date Smoking Tobacco: Never Assessed Comments Unknown Sex and Gender Information Value Date Recorded Sex Assigned at Not on file Legal Sex Female 12:36 PM EDT Gender Identity Not on file Sexual Orientation Not on file documented as of this encounter Medications at Time of Discharge atorvastatin (LIPITOR) 40 MG tablet Take by mouth. 04/20/2014 02/24/2018 olmesartan (BENICAR) 20 MG tablet Take by mouth. 03/18/2013 04/08/2018 documented as of this encounter Plan of Treatment Not on file documented as of this encounter Procedures Procedure Name Priority Date/Time Associated Diagnosis Comments MAMMO SCREENING BILATERAL W CAD Routine 10/13/2014 7:44 AM EST documented in this encounter Results * MAMMOGRAPHY SCREENING BILATERAL (10/13/2014 7:44 AM EST) Anatomical Region Laterality Modality Breast Bilateral Mammography 10/13/2014 7:44 AM EST Narrative 10/13/2014 9:15 AM EST ROUTINE SCREENING MAMMOGRAM HISTORY: 64-year-old female for routine screening mammogram IMAGE COMPARISON: ??Prior exams, most recently 11/29/2010 TECHNIQUE: Bilateral full field digital mammography was performed in both 2 and 3-dimensional acquisitions. FINDINGS: There are scattered areas of fibroglandular density. Involuting fibroadenomas again noted on the right. There is no worrisome mass, group of calcifications, or architectural distortion to suggest malignancy. IMPRESSION- No findings suspicious for malignancy. BI-RADS II, BENIGN RECOMMENDATION: Yearly mammogram, yearly physical exam, and monthly self breast exam. CAD was used. The standard false negative rate of mammography is between 10 and 25%. Complex patterns or increased breast density will markedly elevate the false negative rate of mammography. If there is a palpable area of concern, biopsy should be considered regardless of imaging findings. A letter, in lay terminology, with the results of this exam will be mailed to the patient. ? Reading Radiologist- KALI AUGUSTIN ? Releasing Radiologist- KALI AUGUSTIN ? Released Date Time- 10/13/14 0921 ? Lease Picker- Emy Huber Grossman MD [facility] MAMMOGRAPHY ORDERABLES Fi nal Result documented in this encounter Visit Diagnoses Not on filedocumented in this encounter
--- OUTSIDE RECORDS SUMMARY | 2024-08-02 15:11 | XMS_ITS | Encounter Summary ---
[facility] Address [address] [place] [address] Care Team Providers Care Director Of Real Estate Name Role Phone Unavailable Primary Care Provider Unavailabl e Encounter Details Date Type Department Care Team (Late st Contact Info) Description 07/15/2014 2:16 PM EST - 07/15/2014 11:59 PM EST Hospital Encounter [facility] DEPARTMENT [address] [place] [phone] Tom Bello MD [address] [place] [address] Social History Tobacco Use Types Packs/Day Years [...] Procedure Name Priority Date/Time Associated Diagnosis Comments THROAT / UPPER RESPIRATORY CULTURE (REFERENCE) Routine 07/15/2014 9:58 AM EST documented in this encounter Results * Throat culture (07/15/2014 9:58 AM EST) Swab (specimen) 07/15/2014 9 :58 AM EST Narrative LABORATORY - 07/17/2014 7:04 AM EST Specimen Type: Throat [facility] - Culture Throat Specimen: Throat Collected: 07/15/2014 09:58 Status: FINAL ? Last Updated: 07/17/2014 07:04 Culture Result (CR) (Final) ??No Beta Hemolytic Streptococcus Isolated us Tom Bello MD MICROBIOLOGY - GENERAL ORDERA BLES Final Result LABORATORY [address] [place] [address], documented in this encounter Visit Diagnoses Not on filedocumented in this encounter
--- OUTSIDE RECORDS SUMMARY | 2024-08-02 15:11 | XMS_ITS | Encounter Summary ---
[facility] Address [address] [place] [address] Care Team Providers Care Quality Assurance Name Role Phone Huber Grossman MD Primary Care Provider Barbara valladares Reason for Visit * Reason Comments Hyperglycemia 5 month f/u Tremors B12 Injection Asthma med RF Encounter Details Date Type Department Care Team (Late st Contact Info) Description 09/17/2018 11:30 AM EST Office Visit [facility] [address] [phone] Huber Grossman MD Controlled type 2 diabetes mellitus without complication, without long-term current use of insulin (Primary Dx); Elevated glucose; Class 3 severe obesity due to excess calories with serious comorbidity and body mass index (BMI) of 50.0 to 59.9 in adult; Mild intermittent asthma without complication; Tremor, essential Social History Tobacco Use Types Packs/Day Years [...] Sign Reading Time Taken Comments Blood Pressure 136/88 09/17/2018 11:24 AM EST Pulse 98 09/17/2018 11:24 AM EST Temperature - - Respiratory Rate 16 09/17/2018 11:24 AM EST Oxygen Saturation 92% 09/17/2018 11:24 AM EST Inhaled Oxygen Concentration - - Weight 142 kg (312 lb) 09/17/2018 11:24 AM EST Height 160 cm (5' 3 ) 09/17/2018 11:24 AM EST Body Mass Index 55.27 09/17/2018 11:24 AM EST documented in this encounter Progress Notes * Huber Grossman MD - 09/17/2018 11:30 AM EST Subjective Mirtha Mayberry is a 68 y.o. female. Neurologic Problem The patient's pertinent negatives include no slurred speech or syncope. Primary symptoms comment: fine tremor of hands left worse. This is a chronic problem. The current episode started more than 1 month ago. The neurological problem developed gradually. The problem is unchanged. There was no focality noted. Associated symptoms include diaphoresis, fatigue and shortness of breath. Pertinent negatives include no chest pain or vomiting. Past treatments include nothing. The treatment provided no relief. Diabetes She presents for her follow-up diabetic visit. She has type 2 diabetes mellitus. Her disease coursehas been worsening. There are no hypoglycemic associated symptoms. Associated symptoms include fatigue and polyuria. Pertinent negatives for diabetes include no chest pain, no polydipsia, no polyphagia and no weight loss. There are no hypoglycemic complications. Symptoms are stable. Risk factors for coronary artery disease include obesity, sedentary lifestyle, post- menopausal and tobacco exposure. Current diabetic treatment includes oral agent (monotherapy). She is compliant with treatment someof the time. She rarely participates in exercise. An CHAS inhibitor/angiotensin II receptor shefali is being taken. Eye exam is current. Obesity This is a chronic problem. The current episode started more than 1 year ago. The problem has been unchanged. Associated symptoms include arthralgias, diaphoresis, fatigue and joint swelling. Pertinent negatives include no chest pain, congestion, coughing, sore throat or vomiting. She has tried nothing for the symptoms. The treatment provided no relief. The following portions of the patient's history were reviewed and updated as appropriate: allergies, current medications, past social history and problem list. Review of Systems Constitutional: Positive for diaphoresis and fatigue. Negative for weight loss. HENT: Negative for congestion and sore throat. Respiratory: Positive for shortness of breath. Negative for cough. Cardiovascular: Positive for leg swelling. Negative for chest pain. Gastrointestinal: Negative for constipation, diarrhea and vomiting. Endocrine: Positive for polyuria. Negative for polydipsia and polyphagia. Genitourinary: Negative for dysuria and hematuria. Musculoskeletal: Positive for arthralgias and joint swelling. Neurological: Negative for syncope. Objective BP 136/88 Pulse 98 Resp 16 Ht 160 cm (63 ) Wt (!) 142 kg (312 lb) SpO2 92% BMI 55.27 kg/m?? Physical Exam Constitutional: She is oriented to person, place, and time. She appears well- developed. She is cooperative. Morbidly obese wf HENT: Head: Normocephalic. Right Ear: External ear normal. Left Ear: External ear normal. Nose: Nose normal. Mouth/Throat: Oropharynx is clear and moist. Eyes: Conjunctivae are normal. Pupils are equal, round, and reactive to light. No scleral icterus. Neck: Neck supple. No JVD present. Carotid bruit is not present. No thyromegaly present. Cardiovascular: Normal rate and regular rhythm. Pulmonary/Chest: Effort normal. Decreased bs at the bases Abdominal: She exhibits no distension and no mass. There is no hepatosplenomegaly. Musculoskeletal: Normal range of motion. Neurological: She is alert and oriented to person, place, and time. She exhibits abnormal muscle tone. Fine tremor of both hands Skin: Skin is warm and dry. No rash noted. Psychiatric: She has a normal mood and affect. Cognition and memory are normal. Nursing note and vitals reviewed. Assessment/Plan Problem List Items Addressed This Visit Active Problems Airway hyperreactivity Relevant Medications budesonide-formoterol (SYMBICORT) 160-4.5 MCG/ACT inhaler Other Visit Diagnoses Controlled type 2 diabetes mellitus without complication, without long-term current use of insulin ([facility]) - Primary Relevant Medications glipiZIDE (GLUCOTROL) 5 MG tablet Elevated glucose Relevant Orders POC Glycosylated Hemoglobin (Hb A1C) (Completed) Class 3 severe obesity due to excess calories with serious comorbidity and body mass index (BMI) of50.0 to 59.9 in adult ([facility]) Tremor, essential Relevant Medications topiramate (TOPAMAX) 25 MG tablet New Medications Ordered This Visit Medications ??? budesonide-formoterol (SYMBICORT) 160-4.5 MCG/ACT inhaler Sig: Inhale 2 puffs 2 (Two) Times a Day. Dispense: 3 inhaler Refill: 3 ??? rosuvastatin (CRESTOR) 10 MG tablet Sig: Take 1 tablet by mouth Every Night. Dispense: 90 tablet Refill: 1 ??? triamterene-hydrochlorothiazide (MAXZIDE-25) 37.5-25 MG per tablet Sig: Take 1 tablet by mouth Daily. Dispense: 30 tablet Refill: 1 ??? azithromycin (ZITHROMAX) 250 MG tablet Sig: Take 2 tablets the first day, then 1 tablet daily for 4 days. Dispense: 6 tablet Refill: 0 ??? glipiZIDE (GLUCOTROL) 5 MG tablet Sig: Take 1 tablet by mouth 2 (Two) Times a Day Before Meals. Dispense: 180 tablet Refill: 1 ??? topiramate (TOPAMAX) 25 MG tablet Sig: Take 1 tablet by mouth every night at bedtime. For tremor Dispense: 30 tablet Refill: 2 Discussed weight loss and consideration of gastric sleeve. Consider changing venlafaxine re tremor documented in this encounter Plan of Treatment Not on file documented as of this encounter Procedures Procedure Name Priority Date/Time Associated Diagnosis Comments POCT GLYCOSYLATED HEMOGLOBIN (HGB A1C) Routine 09/17/2018 11:46 AM EST Elevated glucose SCANNED - INFLUENZA 09/17/2018 documented in this encounter Results * POC Glycosylated Hemoglobin (Hb A1C) (09/17/2018 11:46 AM EST) Hemoglobin A1C 8.7 % [facility] Blood 09/17/2018 11:4 6 AM EST us Huber Grossman MD POINT OF CARE TEST ORDERABLES Final Result [facility]
[address] [place] [address], [place] [phone] * SCANNED - INFLUENZA (09/17/2018) us Huber Grossamn MD CHART REVIEW TABS Final Re sult documented in this encounter Visit Diagnoses Diagnosis Controlled type 2 diabetes mellitus without complication, without long-term current use of insulin- Primary Elevated glucose Other abnormal glucose Class 3 severe obesity due to excess calories with serious comorbidity and body mass index (BMI) of 50.0 to 59.9 in adult Mild intermittent asthma without complication Tremor, essential Essential and other specified forms of tremor documented in this encounter Administered Medications Inactive Administered Medications - up to 3 most recent administrations Medication Order MAR Action Action Date Dose Rate Site cyanocobalamin injection 1,000 mcg 1,000 mcg, Intramuscular, Once, On Thu05/05/18 at 0000, For 1 doseIndications:B12 deficiency Given 09/17/2018 12:35 PM EST 1,000 mcg Left Deltoid documented in this encounter Care Teams Quality Assurance Relationship Specialty Start Date End Date Huber Grossman MD PCP - General Family Medicine 02/08/18 09/28/19 documented as of this encounter
--- OUTSIDE RECORDS SUMMARY | 2024-08-02 15:11 | XMS_ITS | Encounter Summary ---
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 [address] [address] Phone: tel: fax: Referral ID Status Reason Start Date Expiration Date V isits Requested Visits Authorized [id number] Closed Specialty Services Required 04/08/2018 04/08/2019 1 1 Encounter Details Date Type Department Care Team (Late st Contact Info) Description 05/19/2018 11:00 AM EDT Outside Facility Service [facility] [address] [phone] Jacob Nicholas MD [address] [address] Social History Tobacco Use Types Packs/Day Years [...] Procedure Name Priority Date/Time Associated Diagnosis Comments ENDOSCOPY, INT 05/19/2018 SCANNED - COLONOSCOPY 05/19/2018 documented in this encounter Results * ENDOSCOPY, INT (05/19/2018) Huber Grossman MD INTERFACE NEEDS Final Result * SCANNED - COLONOSCOPY (05/19/2018) Huber Grossman MD CHART REVIEW TABS Final Re sult documented in this encounter Visit Diagnoses Not on filedocumented in this encounter Care Teams Senior Energy Consultant Relationship Specialty Start Date End Date Huber Grossman MD PCP - General Family Medicine 02/08/18 09/28/19 documented as of this encounter
--- OUTSIDE RECORDS SUMMARY | 2024-08-02 15:11 | XMS_ITS | Encounter Summary ---
Author Organization [facility] Address [address] [place] [address] Care Team Providers Care Fishing Boat Mate Name Role Phone Unavailable Primary Care Provider Unavailabl e Encounter Details Date Type Department Care Team (Late st Contact Info) Description 07/24/2014 Documentation [facility] HISTORICAL CONV [address] [place] [address] ProviderCaden MD [address] [place] [id number] Social History Tobacco Use Types Packs/Day Years Used Date Smoking Tobacco: Never Assessed Comments Unknown Sex and Gender Information Value Date Recorded Sex Assigned at Not on file Legal Sex Female 12:36 PM EDT Gender Identity Not on file Sexual Orientation Not on file documented as of this encounter Progress Notes * Tom Bello MD - 07/24/2014 3:03 PM EST Verified Results Culture Throat , Nasopharynx , or Nasal 15Jul2014 09:58AM Tom Bello Test Name Result Flag Reference REPORT Specimen: Throat Collected: 07/15/2014 09:58 Status: Final Last Updated: 07/16/2014 06:32 Culture Result (Final) No Beta Hemolytic Streptococcus Isolated documented in this encounter Plan of Treatment Not on file documented as of this encounter Visit Diagnoses Not on filedocumented in this encounter
--- OUTSIDE RECORDS SUMMARY | 2024-08-02 15:11 | XMS_ITS | Encounter Summary ---
[facility] Address [address] [place] [address] Care Team Providers Care Traffic Superintendent Name Role Phone Unavailable Primary Care Provider Unavailabl e Encounter Details Date Type Department Care Team (Late st Contact Info) Description 11/06/[address] [facility] [address] [facility] [address] [place] [id number] Huber Grossman MD Social History Tobacco Use Types Packs/Day Years Used Date Smoking Tobacco: Never Assessed Comments Unknown Sex and Gender Information Value Date Recorded Sex Assigned at Not on file Legal Sex Female 12:36 PM EDT Gender Identity Not on file Sexual Orientation Not on file documented as of this encounter Miscellaneous Notes * Letter - Interface, See Report - 11/06/2014 3:45 PM EST Dear NAM MAYBERRY, Thank you for choosing [facility]. Your health is of our utmost concern which is why we want to inform you that you recently missed your appointment on 11/06/2014 at 3:45PM with Huber Grossman. We understand unexpected circumstances arise; however, anytime you miss your appointment we are unable to provide you with appropriate care. In addition, each appointment missed could have been used to provide care for others. We ask that you call at least 24 hours in advance to cancel or reschedule an appointment in order to avoid a possible fee for a no-show. We would like to take this opportunity to remind you of our policy stating patients who miss three or more appointments without cancelling or rescheduling 24 hours in advance of the appointment may be subject to dismissal from the practice. To reschedule your appointment, please contact the number listed above. We value you as a patient and thank you for allowing [facility] to provide care for all of your healthcare needs. Thank you. * Telephone Encounter - Interface, See Report - 11/06/2014 3:45 PM EST Message Recorded as Task Date: 10/31/2014 08:08 AM, Created By: Edyta Grigsby Task Name: Patient Problem Assigned To: Nam Oviedo Regarding Patient: PACHECO MAYBERRYY Soraida, Status: Active Comment: Edyta Grigsby - 31 Oct 2014 8:08 AM TASK CREATED Caller: Self; General Medical Question; ; Pt states that she has been on antibiotics for 6 days now and she is not getting any better. No fever but producing alot of mucus and feels like it may be slowly progressing into her chest. She is taking OTC liquid Mucinex. Pt wants to know if maybe you need to change her antibiotic or if there is something else that she can do. Please advise. Nam Oviedo - 31 Oct 2014 8:48 AM TASK REASSIGNED: Previously Assigned To Nam Oviedo Allan - 31 Oct 2014 5:14 PM TASK REPLIED TO: Previously Assigned To Huber Grossman add zithromax i sent rx Called pt and LVM that med was sent to pharmacy..COUNSELING PROGRAM LEADER Signatures Electronically signed by : Nam Oviedo MA; Nov 01 2014 11:21AM EST (Author) documented in this encounter Plan of Treatment Not on file documented as of this encounter Visit Diagnoses Not on filedocumented in this encounter
--- OUTSIDE RECORDS SUMMARY | 2024-08-02 15:11 | XMS_ITS | Encounter Summary ---
[facility] Organization [facility] Address [address] [place] [address] Care Team Providers Care Software Applications Engineer Name Role Phone Unavailable Primary Care Provider Unavailabl e Encounter Details Date Type Department Care Team (Late st Contact Info) Description 09/06/2014 Office Visit Converted [facility] [address] [phone] Huber Grossman MD Social History [...] Reading Time Taken Comments Blood Pressure 124/80 09/06/2014 8:45 AM EST Pulse 76 09/06/2014 8:45 AM EST Temperature - - Respiratory Rate 17 09/06/2014 8:45 AM EST Oxygen Saturation 98% 09/06/2014 8:45 AM EST Inhaled Oxygen Concentration - - Weight 122 kg (270 lb) 09/06/2014 8:45 AM EST Height 160 cm (5' 3 ) 09/06/2014 8:45 AM EST Body Mass Index 47.83 09/06/2014 8:45 AM EST documented in this encounter Progress Notes * Huber Grossman MD - 09/06/2014 8:45 AM EST Chief Complaint C/O of skilled nursing UPI that will not go away, feels she has thrush in her mouth History of Present Illness HPI: Mirtha is having problems with a chronic cough which she cannot seem to get rid of she has seen an fish filleter and an ENT physician has been here 2 or 3 times without resolution. The cough is nonproductive sort of dry she also has some of the laryngospasm issues that is separate from this cough. Review of Systems Constitutional: as noted in HPI. Cardiovascular: negative. Respiratory: dry cough, but as noted in HPI. Gastrointestinal: negative. Genitourinary: negative. Neurological: negative. Psychiatric: anxiety. Active Problems 1. Abdominal pain (789.00) 2. Anxiety (300.00) 3. Asthma (493.90) 4. Generalized anxiety disorder (300.02) 5. Hyperlipidemia (272.4) 6. Hypertension (401.9) 7. Laryngospasm (478.75) 8. Laryngotracheobronchitis (490) 9. Pharyngitis (462) 10. Upper respiratory infection (465.9) Social History ?? Former smoker (V15.82) Current Meds Medication Name [...] DAILY. INCREASE TO TWICE DAILY WITH ILLNESS. Clindamycin HCl - 150 MG Oral Capsule TAKE 1 CAPSULE EVERY 6 HOURS DAILY. DiphenhydrAMINE HCl - 12.5 MG/5ML Oral Elixir swish, gargle, then spit 5 ml qid prn Fish Oil CAPS Lipitor 40 MG Oral Tablet Take 1 tablet daily Loratadine 10 MG Oral Tablet Vitamin D 1000 UNIT Oral Tablet Xopenex HFA 45 MCG/ACT Inhalation Aerosol Allergies 1. Ciprofloxacin HCl TABS 2. Codeine Derivatives 3. Iodinated Contrast Media 4. Penicillins Vitals Signs [Data Includes: Current Encounter] Heart Rate: 76 Respiration: 17 Systolic: 124 Diastolic: 80 Height: 5 ft 3 in Weight: 270 lb BMI Calculated: 47.83 BSA Calculated: 2.2 O2 Saturation: 98 Physical Exam Constitutional General appearance: No acute distress, well appearing and well nourished. Eyes Conjunctiva and lids: No swelling, erythema or discharge. Ears, Nose, Mouth, and Throat External inspection of ears and nose: Normal. Otoscopic examination: Tympanic membranes translucent with normal light reflex. Canals patent without erythema. Mouth shows a few specks of white coating to the tongue. Pulmonary Respiratory effort: No increased work of breathing or signs of respiratory distress. Try upper airwayi no rales no wheezes. Cardiovascular Auscultation of heart: Normal rate and rhythm, normal S1 and S2, without murmurs. Examination of extremities for edema and/or varicosities: Normal. Musculoskeletal Gait and station: Normal. Psychiatric Orientation to person, place, and time: Normal. Assessment 1. Asthma (493.90) 2. Krista, oral (112.0) 3. Chronic cough (786.2) Plan Asthma ?? Start: HFA 45 MCG/ACT Inhalation Aerosol; INHALE 2 PUFFS EVERY 6 HOURS NEEDED Asthma, Laryngotracheobronchitis ?? Renew: Diskus 500-50 MCG/DOSE Inhalation Aerosol Powder Breath Activated; INHALE 1 PUFF TWICE DAILY Pharyngitis ?? Renew: 958937 UNIT/ML Mouth/Throat Suspension; swish and spit 1 5ml qid Discussion/Summary Mirtha had a recent chest x-ray in the emergency room which was reportedly negative. I am recommending she have a chest CT and a pulmonary evaluation. I encouraged her to be diligent about rinsing her mouth after using Advair or the inhaled steroid. I am not recommending any more antibiotics at this time. I am not recommending any further oral steroids at this time. She is only to use the inhaled steroid when she runs out of Advair she does prefer Advair but her insurance does not cover it. End of Encounter Meds Medication Name Instruction [...] DAILY. INCREASE TO TWICE DAILY WITH ILLNESS. Clindamycin HCl - 150 MG Oral Capsule TAKE 1 CAPSULE EVERY 6 HOURS DAILY. DiphenhydrAMINE HCl - 12.5 MG/5ML Oral Elixir swish, gargle, then spit 5 ml qid prn Fish Oil CAPS Lipitor 40 MG Oral Tablet (Atorvastatin Calcium) Take 1 tablet daily Loratadine 10 MG Oral Tablet Nystatin 288322 UNIT/ML Mouth/Throat Suspension swish and spit 1 5ml qid Vitamin D 1000 UNIT Oral Tablet Xopenex HFA 45 MCG/ACT Inhalation Aerosol INHALE 2 PUFFS EVERY 6 HOURS NEEDED. Xopenex HFA 45 MCG/ACT Inhalation Aerosol Future Appointments Date/Time Provider Specialty Site 11/06/2014 03:45 PM Huber Grossman M.D. Family Medicine [facility] Signatures Electronically signed by : Huber Grossman M.D.; Sep 06 2014 1:11PM EST (Author) documented in this encounter Plan of Treatment Not on file documented as of this encounter Visit Diagnoses Not on filedocumented in this encounter
--- OUTSIDE RECORDS SUMMARY | 2024-08-02 15:11 | XMS_ITS | Encounter Summary ---
[facility] Address [address] [place] [address] Care Team Providers Care Coating Engineer Name Role Phone Unavailable Primary Care Provider Unavailabl e Encounter Details Date Type Department Care Team (Late st Contact Info) Description 03/23/2013 Documentation Converted [facility] [address] [place] [address] ProviderCaden MD [address] [place] [id number] Social History Tobacco Use Types Packs/Day Years Used Date Smoking Tobacco: Never Assessed Comments Unknown Sex and Gender Information Value Date Recorded Sex Assigned at Not on file Legal Sex Female 12:36 PM EDT Gender Identity Not on file Sexual Orientation Not on file documented as of this encounter Miscellaneous Notes * Telephone Encounter - Interface, See Report - 03/23/2013 1:54 PM EDT Message Recorded as Task Date: 03/22/2013 10:48 AM, Created By: Mary Yoon Task Name: Miscellaneous Assigned To: Keena Villar Regarding Patient: NAM MAYBERRY, Status: Active Comment: Mary Yoon - 22 Mar 2013 10:48 AM TASK CREATED Pharm. called to see if Nam's Benicar 20mg BID could be changed to Benicar 40mg qd. States that there is big difference in co-pay amount Keena Villar - 22 Mar 2013 12:16 PM TASK EDITED Huber Grossman - 22 Mar 2013 4:56 PM TASK REPLIED TO: Previously Assigned To Huber Grossman rx this way can she take 1/2 bid Keena Villar - 23 Mar 2013 1:54 PM TASK EDITED called and gave info to pharmacy Signatures Electronically signed by : Keena Villar, ; Mar 23 2013 1:54PM (Author) documented in this encounter Plan of Treatment Not on file documented as of this encounter Visit Diagnoses Not on filedocumented in this encounter
--- OUTSIDE RECORDS SUMMARY | 2024-08-02 15:11 | XMS_ITS | Encounter Summary ---
[facility] Address [address] [place] [address] Care Team Providers Care Apple Picking Supervisor Name Role Phone Unavailable Primary Care Provider Unavailabl e Encounter Details Date Type Department Care Team (Late st Contact Info) Description 07/12/2014 Telephone Converted [facility] [address] [place] [address] Provider, MD Caden [address] [place] [address] Social History Tobacco Use Types Packs/Day Years Used Date Smoking Tobacco: Never Assessed Comments Unknown Sex and Gender Information Value Date Recorded Sex Assigned at Not on file Legal Sex Female 12:36 PM EDT Gender Identity Not on file Sexual Orientation Not on file documented as of this encounter Miscellaneous Notes * Telephone Encounter - Interface, See Report - 07/12/2014 10:22 AM EST Message Recorded as Task Date: 07/06/2014 01:50 PM, Created By: Jerson Joseph Task Name: Patient Problem Assigned To: Keena Villar Regarding Patient: NAM MAYBERRY, Status: Active Comment: Jerson Joseph - 06 Jul 2014 1:50 PM TASK CREATED Caller: Self; ; [phone] - ok to leave vmail needs on letter head with in the next buisness week: due to severe asthma unable to share an officesuite with coworker that would wear any sented products-pt informs has been hospitalized in past due to this issue. please fax to pt [phone] (this is a secure medical fax #) Keena Villar - 12 Jul 2014 10:22 AM TASK EDITED CALLED AND LET PATIENT KNOW THIS WAS FAXED OVER TO NUMBER GIVEN Signatures Electronically signed by : Keena Villar, ; Jul 12 2014 10:23AM EST (Author) documented in this encounter Plan of Treatment Not on file documented as of this encounter Visit Diagnoses Not on filedocumented in this encounter
--- OUTSIDE RECORDS SUMMARY | 2024-08-02 15:11 | XMS_ITS | Encounter Summary ---
Author Organization [facility] Address [address] [place] [address] Care Team Providers Care Order Builder Loader Name Role Phone Unavailable Primary Care Provider Unavailabl e Encounter Details Date Type Department Care Team (Late st Contact Info) Description 10/26/2014 Office Visit Converted [facility] [address] [phone] Huber Grossman MD Social History [...] Sign Reading Time Taken Comments Blood Pressure 122/78 10/26/2014 10:57 AM EST Pulse 83 10/26/2014 10:57 AM EST Temperature 36.7 ??C (98.1 ??F) 10/26/2014 10:[address] Respiratory Rate 17 10/26/2014 10:57 AM EST Oxygen Saturation 97% 10/26/2014 10:57 AM EST Inhaled Oxygen Concentration - - Weight 122 kg (270 lb) 10/26/2014 10:57 AM EST Height 160 cm (5' 3 ) 10/26/2014 10:57 AM EST Body Mass Index 47.83 10/26/2014 10:57 AM EST documented in this encounter Progress Notes * Huber Grossman MD - 10/26/2014 10:30 AM EST Chief Complaint C/O sinus congestion History of Present Illness HPI: She is getting a sinus infection she feels drainage she has had some yellow sputum she is alsostarting to feel some tightness in her throat. This started about 3 days ago she could not get hereearlier due to the weather but feels certain she still need a short burst of prednisone to prevent the spasm of her airway. Review of Systems Constitutional: as noted in HPI, no fever and no chills. ENT: as noted in HPI. Cardiovascular: negative. Respiratory: wheezing and dry cough. Gastrointestinal: negative. Psychiatric: anxiety. Active Problems 1. Abdominal pain (789.00) 2. Anxiety (300.00) 3. Asthma (493.90) 4. Krista, oral (112.0) 5. Chronic cough (786.2) 6. Generalized anxiety disorder (300.02) 7. Hyperlipidemia (272.4) 8. Hypertension (401.9) 9. Laryngospasm (478.75) 10. Laryngotracheobronchitis (490) 11. Pharyngitis (462) 12. Upper respiratory infection (465.9) Past 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 ?? History of Allergic rhinitis due to pollen (477.0) ?? History of Bone Density Studies ?? History of Colonoscopy (Fiberoptic) ?? History of hyperlipidemia (V12.29) ?? History of hypertension (V12.59) ?? History of osteopenia (V13.59) ?? History of Mammogram ?? History of Overweight (278.02) Surgical History ?? History of Total Abdominal Hysterectomy Social History ?? Former smoker (V15.82) Current [...] DAILY. INCREASE TO TWICE DAILY WITH ILLNESS. DiphenhydrAMINE HCl - 12.5 MG/5ML Oral Elixir swish, gargle, then spit 5 ml qid prn Fish Oil CAPS Lipitor 40 MG Oral Tablet Take 1 tablet daily Loratadine 10 MG Oral Tablet Nystatin 547061 UNIT/ML Mouth/Throat Suspension swish and spit 1 5ml qid Vitamin D 1000 UNIT Oral Tablet Xopenex HFA 45 MCG/ACT Inhalation Aerosol INHALE 2 PUFFS EVERY 6 HOURS NEEDED. Xopenex HFA 45 MCG/ACT Inhalation Aerosol Allergies 1. Ciprofloxacin HCl TABS 2. Codeine Derivatives 3. Iodinated Contrast Media 4. Penicillins Vitals Signs [Data Includes: Current Encounter] Temperature: 98.1 F Heart Rate: 83 Respiration: 17 Systolic: 122 Diastolic: 78 Height: 5 ft 3 in Weight: 270 lb BMI Calculated: 47.83 BSA Calculated: 2.2 O2 Saturation: 97 Physical Exam Constitutional General appearance: No acute distress, well appearing and well nourished. Eyes Conjunctiva and lids: No swelling, erythema or discharge. Ears, Nose, Mouth, and Throat External inspection of ears and nose: Normal. Otoscopic examination: Tympanic membranes translucent with normal light reflex. Canals patent without erythema. Cloudy yellow postnasal drip. Pulmonary Respiratory effort: No increased work of breathing or signs of respiratory distress. A few scattered expiratory wheezes. Cardiovascular Auscultation of heart: Normal rate and rhythm, normal S1 and S2, without murmurs. Examination of extremities for edema and/or varicosities: Normal. Lymphatic Palpation of lymph nodes in neck: No lymphadenopathy. Psychiatric Orientation to person, place, and time: Normal. Assessment 1. Sinusitis (473.9) 2. Laryngospasm (478.75) Plan Sinusitis ?? Start: 300 MG Oral Capsule; TAKE 2 CAPSULES DAILY ?? Start: 10 MG Oral Tablet; TAKE 4 TABLETS DAILY FOR 2 DAYS,3 TABLETS DAILY FOR 2 DAYS, 2 TABLETS DAILY FOR 2 DAYS AND 1 TABLET DAILY FOR 2 DAYS, THEN STOP Discussion/Summary Patient instructed to call if symptoms worsen or if new symptoms develop. End of Encounter Meds Medication Name Instruction [...] DAILY. INCREASE TO TWICE DAILY WITH ILLNESS. Cefdinir 300 MG Oral Capsule TAKE 2 CAPSULES DAILY. DiphenhydrAMINE HCl - 12.5 MG/5ML Oral Elixir swish, gargle, then spit 5 ml qid prn Fish Oil CAPS Lipitor 40 MG Oral Tablet (Atorvastatin Calcium) Take 1 tablet daily Loratadine 10 MG Oral Tablet Nystatin 411511 UNIT/ML Mouth/Throat Suspension swish and spit 1 5ml qid PredniSONE 10 MG Oral Tablet TAKE 4 TABLETS DAILY FOR 2 DAYS,3 TABLETS DAILY FOR 2 DAYS, 2 TABLETS DAILY FOR 2 DAYS AND 1 TABLET DAILY FOR 2 DAYS, THEN STOP. Vitamin D 1000 UNIT Oral Tablet Xopenex HFA 45 MCG/ACT Inhalation Aerosol INHALE 2 PUFFS EVERY 6 HOURS NEEDED. Xopenex HFA 45 MCG/ACT Inhalation Aerosol Future Appointments Date/Time Provider Specialty Site 11/06/2014 03:45 PM Huber Grossman M.D. Family Medicine [facility] Medicine at [facility] Signatures Electronically signed by : Huber Grossman M.D.; Oct 26 2014 12:49PM EST (Author) documented in this encounter Plan of Treatment Not on file documented as of this encounter Visit Diagnoses Not on filedocumented in this encounter
--- OUTSIDE RECORDS SUMMARY | 2024-08-02 15:11 | XMS_ITS | Encounter Summary ---
[facility] Address [address] [place] [address] Care Team Providers Care Orchid Superintendent Name Role Phone Unavailable Primary Care Provider Unavailabl e Encounter Details Date Type Department Care Team (Late st Contact Info) Description 01/18/2015 Office Visit Converted [facility] [address] [phone] Tom Bello MD [address] [place] [address] Social History Tobacco Use Types Packs/Day Years Used Date Smoking Tobacco: Never Assessed Comments Unknown Sex and Gender Information Value Date Recorded Sex Assigned at Not on file Legal Sex Female 12:36 PM EDT Gender Identity Not on file Sexual Orientation Not on file documented as of this encounter Last Filed Vital Signs Vital Sign Reading Time Taken Comments Blood Pressure 122/86 01/18/2015 3:57 PM EDT Pulse - - Temperature 36.7 ??C (98 ??F) 01/18/2015 3:57 PM EDT Respiratory Rate 16 01/18/2015 3:57 PM EDT Oxygen Saturation - - Inhaled Oxygen Concentration - - Weight 127 kg (281 lb) 01/18/2015 3:57 PM EDT Height 160 cm (5' 3 ) 01/18/2015 3:57 PM EDT Body Mass Index 49.78 01/18/2015 3:57 PM EDT documented in this encounter Progress Notes * Tom Bello MD - 01/18/2015 3:45 PM EDT Chief Complaint Neck, shoulder pain x 4 days History of Present Illness HPI: The patient is had pain at her right side of her neck and shoulder over the last 4 days. Her at home and lost his balance and the bathroom. He is being treated for cancer. No patient hadto strain to get him up off the floor and eventually required help from their son. Since that time. The patient is had the pain in the area of the right trapezius. There is been no radiation of pain down her arm. She is had no pain in the posterior neck and there is been no tingling or numbness. Review of Systems Constitutional: negative. ENT: negative. Cardiovascular: negative. Respiratory: negative. Gastrointestinal: negative. Genitourinary: negative. Musculoskeletal: as noted in HPI. The patient presents with complaints of right shoulder pain, described as sharp, radiating to the right neck. Integumentary and Breasts: negative. Neurological: negative. Psychiatric: negative. Active Problems 1. Abdominal pain (789.00) 2. Anxiety (300.00) 3. Asthma (493.90) 4. Krista, oral (112.0) 5. Chronic cough (786.2) 6. Generalized anxiety disorder (300.02) 7. Hyperlipidemia (272.4) 8. Hypertension (401.9) 9. Laryngospasm (478.75) 10. Laryngotracheobronchitis (490) 11. Pharyngitis (462) 12. Sinusitis (473.9) 13. Upper respiratory infection (465.9) Past 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 [...] Abdominal Hysterectomy Social History ?? Former smoker Current Meds Medication Name Instruction Advair Diskus [...] Release 24 Hour TAKE 1 CAPSULE DAILY. DiphenhydrAMINE HCl - 12.5 MG/5ML Oral Elixir swish, gargle, then spit 5 ml qid prn Fish Oil CAPS Lipitor 40 MG Oral Tablet Take 1 tablet daily Loratadine 10 MG Oral Tablet Nystatin 575222 UNIT/ML Mouth/Throat Suspension swish and spit 1 5ml qid Vitamin D 1000 UNIT Oral Tablet Xopenex HFA 45 MCG/ACT Inhalation Aerosol INHALE 2 PUFFS EVERY 6 HOURS NEEDED. Xopenex HFA 45 MCG/ACT Inhalation Aerosol Allergies 1. Ciprofloxacin HCl TABS 2. Codeine Derivatives 3. Iodinated Contrast Media 4. Penicillins Vitals Signs [Data Includes: Current Encounter] Temperature: 98 F, Oral Respiration: 16 Respiration Quality: Normal Systolic: 122, LUE, Sitting Diastolic: 86, LUE, Sitting Height: 5 ft 3 in Weight: 281 lb BMI Calculated: 49.78 BSA Calculated: 2.23 Physical Exam Constitutional General appearance: No acute distress, well appearing and well nourished. Obese female inno acute distress. Musculoskeletal Inspection/palpation of joints, bones, and muscles: Abnormal. Ears tenderness at the posterior aspect of the proximal right trapezius. This area is injected with 40 mg a Kenalog +1 mL of Marcaine is well-tolerated. Assessment 1. Strain of right trapezius muscle (840.8) Plan Strain of right trapezius muscle ?? Start: HCl - 4 MG Oral Tablet; TAKE 1 TABLET Bedtime ?? In Office Arthrocentesis, Aspiration and/or Injection, Small Joint or Bursa - ; Status:Active; Requested for:[id number]; Continue heat and stretches. Discussion/Summary Use stretching of the trapezius muscle as well as heat. She can use ibuprofen 600 mg 4 times a day as needed for 2 or 3 days and take ties. Tizanidine 4 mg each night for the next for 5 days. End of Encounter Meds Medication Name Instruction [...] Release 24 Hour TAKE 1 CAPSULE DAILY. DiphenhydrAMINE HCl - 12.5 MG/5ML Oral Elixir swish, gargle, then spit 5 ml qid prn Fish Oil CAPS Lipitor 40 MG Oral Tablet (Atorvastatin Calcium) Take 1 tablet daily Loratadine 10 MG Oral Tablet Nystatin 390520 UNIT/ML Mouth/Throat Suspension swish and spit 1 5ml qid TiZANidine HCl - 4 MG Oral Tablet TAKE 1 TABLET Bedtime Vitamin D 1000 UNIT Oral Tablet Xopenex HFA 45 MCG/ACT Inhalation Aerosol INHALE 2 PUFFS EVERY 6 HOURS NEEDED. Xopenex HFA 45 MCG/ACT Inhalation Aerosol Scribed for Tom Bello, by Jenelle Chisholm. 01/18/2015 4:14 PM ITom, personally performed the services described in this documentation, as scribed by Jenelle Chisholm in my presence, and it is both accurate and complete. Signatures Electronically signed by : Jenelle Chisholm, ; Jan 18 2015 4:30PM EST (Co-author) Electronically signed by : Tom Bello M.D.; Jan 21 2015 8:29PM EST (Author) documented in this encounter Plan of Treatment Not on file documented as of this encounter Visit Diagnoses Not on filedocumented in this encounter
--- OUTSIDE RECORDS SUMMARY | 2024-08-02 15:11 | XMS_ITS | Encounter Summary ---
[facility] Address [address] [place] [address] Care Team Providers Care Photoengraver Apprentice Name Role Phone Unavailable Primary Care Provider Unavailabl e Encounter Details Date Type Department Care Team (Late st Contact Info) Description 06/15/[address] [facility] [address] [place] [address] Provider, MD Caden [address] [place] [id number] Social History Tobacco Use Types Packs/Day Years Used Date Smoking Tobacco: Never Assessed Comments Unknown Sex and Gender Information Value Date Recorded Sex Assigned at Not on file Legal Sex Female 12:36 PM EDT Gender Identity Not on file Sexual Orientation Not on file documented as of this encounter Miscellaneous Notes * Telephone Encounter - Interface, See Report - 06/15/2014 5:24 PM EDT Message Recorded as Task Date: 06/15/2014 01:29 PM, Created By: Nicolle Gandara Task Name: Medication Question Assigned To: Alvin Albarran Regarding Patient: NAM MAYBERRY, Status: Active Comment: Nicolle Gandara - 15 Jun 2014 1:29 PM TASK CREATED Caller: Self; ; pt saw chris on thursday and says she is getting worse. pt requests a call back. thank you Mindy Guerrero - 15 Jun 2014 4:58 PM TASK REASSIGNED: Previously Assigned To Keena Villar Toni - 15 Jun 2014 5:24 PM TASK EDITED Chris sent in Zpak and Mindy Elder Spoke with pt. when she called back. Signatures Electronically signed by : Alvin Albarran, ; Jun 15 2014 5:24PM EST (Author) documented in this encounter Plan of Treatment Not on file documented as of this encounter Visit Diagnoses Not on filedocumented in this encounter
--- OUTSIDE RECORDS SUMMARY | 2024-08-02 15:11 | XMS_ITS | Encounter Summary ---
Author Organization [facility] Address [address] [place] [address] Care Team Providers Care Personnel Officer Name Role Phone Unavailable Primary Care Provider Unavailabl e Encounter Details Date Type Department Care Team (Late st Contact Info) Description 07/18/2014 Telephone Converted [facility] [address] [place] [address] ProviderCaden MD [address] [place] [id number] Social History Tobacco Use Types Packs/Day Years Used Date Smoking Tobacco: Never Assessed Comments Unknown Sex and Gender Information Value Date Recorded Sex Assigned at Not on file Legal Sex Female 12:36 PM EDT Gender Identity Not on file Sexual Orientation Not on file documented as of this encounter Miscellaneous Notes * Telephone Encounter - Interface, See Report - 07/18/2014 12:47 PM EST Message Recorded as Task Date: 07/20/2014 05:01 PM, Created By: Mindy Guerrero Task Name: Patient Call Back Assigned To: Kathleen Irvin Regarding Patient: NAM MAYBERRY, Status: Active Comment: Mindy Guerrero - 20 Jul 2014 5:01 PM TASK CREATED Caller: Self; Results Inquiry; ; PT WOULD LIKE YOU TO CALL HER AND EXPLAIN HER CULTURE RESULTS TO HER. SHE GOT A LETTER IN THE MAIL,BUT IT WASN'T THE RESULT SHE WANTED. Kathleen Irvin - 21 Jul 2014 9:45 AM TASK EDITED sent copy of throat culture by mail per pt request Signatures Electronically signed by : Kathleen Irvin, ; Jul 21 2014 9:47AM EST (Author) * Telephone Encounter - Interface, See Report - 07/18/2014 12:47 PM EST Message Recorded as Task Date: 07/18/2014 12:09 PM, Created By: Tierra Mazariegos Task Name: Follow Up Assigned To: Kathleen Irvin Regarding Patient: NAM MAYBERRY, Status: Active Comment: Tierra Mazariegos - 18 Jul 2014 12:09 PM TASK CREATED Caller: Self; General Medical Question; ; WOULD LIKE CULTURE RESULTS CALLED TO HER TODAY Kathleen Irvin - 18 Jul 2014 12:21 PM TASK EDITED no abnormal bacterial, indicating viral infection, just finish out medicine she is on anyway Kathleen Irvin - 18 Jul 2014 12:47 PM TASK EDITED pt ifnormed. Signatures Electronically signed by : Kathleen Irvin, ; Jul 18 2014 12:47PM EST (Author) documented in this encounter Plan of Treatment Not on file documented as of this encounter Visit Diagnoses Not on filedocumented in this encounter
--- OUTSIDE RECORDS SUMMARY | 2024-08-02 15:11 | XMS_ITS | Encounter Summary ---
[facility] [address] [place] [address] Care Team Providers Care Turf Farm Worker Name Role Phone Unavailable Primary Care Provider Unavailabl e Encounter Details Date Type Department Care Team (Late st Contact Info) Description 02/19/2015 Office Visit Converted [facility] [address] [address] Huber Grossman MD Social History [...] Sign Reading Time Taken Comments Blood Pressure 126/68 02/19/2015 3:24 PM EDT Pulse 74 02/19/2015 3:24 PM EDT Temperature - - Respiratory Rate 16 02/19/2015 3:24 PM EDT Oxygen Saturation 98% 02/19/2015 3:24 PM EDT Inhaled Oxygen Concentration - - Weight 126 kg (278 lb) 02/19/2015 3:24 PM EDT Height 160 cm (5' 3 ) 02/19/2015 3:24 PM EDT Body Mass Index 49.25 02/19/2015 3:24 PM EDT documented in this encounter Progress Notes * Huber Grossman MD - 02/19/2015 3:45 PM EDT Chief Complaint Re-Eval medications and refills also having leg cramps History of Present Illness HPI: Nam is doing reasonably well having just lost her to cancer she has returned to work she notices swelling in her lower extremities bilaterally end of the week and her fingers get a little puffy she is also having problems with nocturnal leg cramps. Review of Systems Constitutional: as noted in HPI, no fever and no chills. ENT: negative. Cardiovascular: lower extremity edema, but as noted in HPI, no chest pain and no palpitations. Respiratory: wheezing and Breathing has been stable. Gastrointestinal: negative. Musculoskeletal: joint stiffness. Integumentary and Breasts: negative. Neurological: negative. Psychiatric: grief normal. Active Problems 1. Abdominal pain (789.00) 2. Anxiety (300.00) 3. Asthma (493.90) 4. Krista, oral (112.0) 5. Chronic cough (786.2) 6. Generalized anxiety disorder (300.02) 7. Hyperlipidemia (272.4) 8. Hypertension (401.9) 9. Laryngospasm (478.75) 10. Laryngotracheobronchitis (490) 11. Pharyngitis (462) 12. Sinusitis (473.9) 13. Strain of right trapezius muscle (840.8) 14. Upper respiratory infection (465.9) Past 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 [...] Former smoker Current Meds Medication Name Instruction Manju TABS ALPRAZolam 0.5 MG Oral Tablet TAKE 1 TABLET AT BEDTIME NEEDED. Aspirin EC 81 MG Oral Tablet Delayed Release Take 1 tablet daily Benicar 20 MG Oral Tablet Take 1 tablet twice daily Budesonide 0.5 MG/2ML Inhalation Suspension USE 1 VIAL IN NEBULIZER ONCE DAILY. INCREASE TO TWICE DAILY WITH ILLNESS. DiphenhydrAMINE HCl - 12.5 MG/5ML Oral Elixir swish, gargle, then spit 5 ml qid prn Dulera 200-5 MCG/ACT Inhalation Aerosol INHALE 2 PUFFS TWICE DAILY. Fish Oil CAPS Lipitor 40 MG Oral Tablet Take 1 tablet daily Vitamin D 1000 UNIT Oral Tablet Xopenex HFA 45 MCG/ACT Inhalation Aerosol INHALE 2 PUFFS EVERY 6 HOURS NEEDED. Allergies 1. Ciprofloxacin HCl TABS 2. Codeine Derivatives 3. Iodinated Contrast Media 4. Penicillins Vitals Signs [Data Includes: Current Encounter] Heart Rate: 74 Respiration: 16 Systolic: 126 Diastolic: 68 Height: 5 ft 3 in Weight: 278 lb BMI Calculated: 49.25 BSA Calculated: 2.22 O2 Saturation: 98 Physical Exam Constitutional General [...] rhythm, normal S1 and S2, without murmurs. Edema present at the right ankle today somewhat less on the left. Lymphatic Palpation of lymph nodes in neck: No lymphadenopathy. Psychiatric Orientation to person, place, and time: Normal. Somber. Assessment 1. Hypertension (401.9) 2. Edema, peripheral (782.3) 3. Hyperlipidemia (272.4) Plan Hypertension ?? Start: 1.25 MG Oral Tablet; TAKE ONE TABLET BY MOUTH EVERY MORNING ?? Start: Oxide 400 MG Oral Tablet; TAKE 1 TABLET DAILY for leg cramps ?? Start: Chloride ER 10 MEQ Oral Capsule Extended Release; TAKE ONE CAPSULE BY MOUTH EVERY DAY ?? Renew: 20 MG Oral Tablet; Take 1 tablet twice daily ?? Renew: HCl ER Coated Beads 120 MG Oral Capsule Extended Release 24 Hour; TAKE 1 CAPSULE DAILY Discussion/Summary Follow-up in 6 weeks with lab work to monitor electrolytes magnesium and renal function. Discontinue Lipitor for the next 1-2 weeks then trial of Crestor 5 mg 1 daily samples are given #21. End of Encounter Meds Medication Name Instruction Manju TABS (Fexofenadine HCl) ALPRAZolam 0.5 MG Oral Tablet TAKE 1 TABLET AT BEDTIME NEEDED. Aspirin EC 81 MG Oral Tablet Delayed [...] gargle, then spit 5 ml qid prn Dulera 200-5 MCG/ACT Inhalation Aerosol INHALE 2 PUFFS TWICE DAILY. Fish Oil CAPS Indapamide 1.25 MG Oral Tablet TAKE ONE TABLET BY MOUTH EVERY MORNING Lipitor 40 MG Oral Tablet (Atorvastatin Calcium) Take 1 tablet daily Magnesium Oxide 400 MG Oral Tablet TAKE 1 TABLET DAILY for leg cramps Potassium Chloride ER 10 MEQ Oral Capsule Extended Release TAKE ONE CAPSULE BY MOUTH EVERY DAY Vitamin D 1000 UNIT Oral Tablet Xopenex HFA 45 MCG/ACT Inhalation Aerosol INHALE 2 PUFFS EVERY 6 HOURS NEEDED. Signatures Electronically signed by : Huber Grossman M.D.; Feb 19 2015 5:10PM EST (Author) documented in this encounter Miscellaneous Notes * Telephone Encounter - Interface, See Report - 02/19/2015 3:45 PM EDT Message Recorded as Task Date: 2015 02:47 PM, Created By: Jerson Joseph Task Name: Patient Problem Assigned To: Nam Oviedo Regarding Patient: NAM MAYBERRY, Status: Active Comment: Jerson Joseph - 2015 2:47 PM TASK CREATED Caller: Self; ; [phone] PT REQUESTS CALL UNDERSTANDS AN APPT MAY BE REQUIRED, HOWEVER HER SPOUSE IS IN HOSPICE CARE AND NOT EXPECTED TO LIVEBUT A WEEK OR TWO. NEEDING REFILL OF XANAX - [facility] HAS F/U SCHEDULED 02/19/15 Nam Oviedo - 02 Feb 2015 8:39 AM TASK REASSIGNED: Previously Assigned To Nam Oviedo Allan - 02 Feb 2015 11:24 AM TASK REPLIED TO: Previously Assigned To Huber Grossman ok refill 1 time..Sent order to pharmacy.[facility] Signatures Electronically signed by : Nam Oviedo MA; Feb 02 2015 1:13PM EST (Author) documented in this encounter Plan of Treatment Not on file documented as of this encounter Visit Diagnoses Not on filedocumented in this encounter
--- OUTSIDE RECORDS SUMMARY | 2024-08-02 15:11 | XMS_ITS | Encounter Summary ---
Author Organization [facility] Address [address] [place] [address] Care Team Providers Care Warp Dyeing Vat Tender Name Role Phone Unavailable Primary Care Provider Unavailabl e Encounter Details Date Type Department Care Team (Late st Contact Info) Description 06/12/2014 Office Visit Converted [facility] [address] [facility] [address] [place] [address] He Smith, DNP, METER INSTALLER AND REMOVER [address] [facility] [address] [place] [address] Social History Tobacco Use Types Packs/Day Years Used Date Smoking Tobacco: Never Assessed Comments Unknown Sex and Gender Information Value Date Recorded Sex Assigned at Not on file Legal Sex Female 12:36 PM EDT Gender Identity Not on file Sexual Orientation Not on file documented as of this encounter Last Filed Vital Signs Vital Sign Reading Time Taken Comments Blood Pressure 138/82 06/12/2014 2:44 PM EDT Pulse 82 06/12/2014 2:44 PM EDT Temperature 36.5 ??C (97.7 ??F) 06/12/2014 2:44 PM ED T Respiratory Rate - - Oxygen Saturation 97% 06/12/2014 2:44 PM EDT Inhaled Oxygen Concentration - - Weight 120 kg (264 lb 15.9 oz) 06/12/2014 2:44 P M EDT Height 160 cm (5' 3 ) 06/12/2014 2:44 PM EDT Body Mass Index 46.94 06/12/2014 2:44 PM EDT documented in this encounter Progress Notes * He Smith, METER INSTALLER AND REMOVER - 06/12/2014 3:15 PM EDT Chief Complaint Laryngotracheobronchitis History of Present Illness HPI: Patient presents complaining of laryngospasm. She has had this her whole life. She describes atickling in her throat that quickly progresses to resp distress requiring a visit to the ER. She denies wheezing and shortness of breath at this time. She saw her digital cartographer after her last episode and they referred her to Dr. Guevara who is going to doa laryngoscope in two weeks. Review of Systems Constitutional: negative. ENT: negative. Cardiovascular: negative. Respiratory: cough. Gastrointestinal: negative. Genitourinary: negative. Musculoskeletal: negative. Integumentary and Breasts: negative. Neurological: negative. Psychiatric: negative. Active Problems 1. Abdominal pain (789.00) 2. Asthma (493.90) 3. Generalized anxiety disorder (300.02) 4. Hyperlipidemia (272.4) 5. Hypertension (401.9) 6. Laryngospasm (478.75) 7. Laryngotracheobronchitis (490) Past 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 ?? History [...] Vitals Signs [Data Includes: Current Encounter] Temperature: 97.7 F Heart Rate: 82 Systolic: 138 Diastolic: 82 Height: 5 ft 3 in Weight: 265 lb BMI Calculated: 46.94 BSA Calculated: 2.18 O2 Saturation: 97 Physical Exam Constitutional General [...] distress. Auscultation of lungs: Clear to auscultation. Neck Neck: Supple, symmetric, trachea midline, no masses. Cardiovascular Auscultation of heart: Normal rate and rhythm, normal S1 and S2, without murmurs. Examination of extremities for edema and/or varicosities: Normal. Musculoskeletal Gait and station: Normal. Psychiatric Orientation to person, place, and time: Normal. Mood and affect: Normal. Assessment 1. Laryngotracheobronchitis (490) Plan Laryngospasm, Laryngotracheobronchitis ?? Start: (Dennis) 4 MG Oral Tablet; TAKE DIRECTED ON PATIENT INSTRUCTION CARD Discussion/Summary Follow up prn. End of Encounter Meds Medication Name Instruction [...] tablet daily Loratadine 10 MG Oral Tablet MethylPREDNISolone (Dennis) 4 MG Oral Tablet TAKE DIRECTED ON PATIENT INSTRUCTION CARD. Vitamin D 1000 UNIT Oral Tablet Xopenex HFA 45 MCG/ACT Inhalation Aerosol Future Appointments Date/Time Provider Specialty Site 06/23/2014 02:30 PM Huber Grossman M.D. Family Medicine [facility] Signatures Electronically signed by : He Smith APRN; Jun 12 2014 3:07PM EST (Author) documented in this encounter Plan of Treatment Not on file documented as of this encounter Visit Diagnoses Not on filedocumented in this encounter
--- OUTSIDE RECORDS SUMMARY | 2024-08-02 15:11 | XMS_ITS | Encounter Summary ---
[facility] Address [address] [place] [address] Care Team Providers Care Embroiderer Name Role Phone Unavailable Primary Care Provider Unavailabl e Encounter Details Date Type Department Care Team (Late st Contact Info) Description 04/20/2014 Office Visit Converted [facility] [address] [address] Tom Bello MD [address] [place] [address] Social History Tobacco Use Types Packs/Day Years Used Date Smoking Tobacco: Never Assessed Comments Unknown Sex and Gender Information Value Date Recorded Sex Assigned at Not on file Legal Sex Female 12:36 PM EDT Gender Identity Not on file Sexual Orientation Not on file documented as of this encounter Last Filed Vital Signs Vital Sign Reading Time Taken Comments Blood Pressure 124/74 04/20/2014 3:51 PM EDT Pulse - - Temperature 36.8 ??C (98.3 ??F) 04/20/2014 3:51 PM ED T Respiratory Rate 14 04/20/2014 3:51 PM EDT Oxygen Saturation - - Inhaled Oxygen Concentration - - Weight - - Height 160 cm (5' 3 ) 04/20/2014 3:51 PM EDT Body Mass Index - - documented in this encounter Progress Notes * Tom Bello MD - 04/20/2014 3:45 PM EDT Chief Complaint [facility] f/u URI, Sxs coming back, cough, throat congestion. On steroid pack History of Present Illness HPI: The patient has a history of laryngotracheal malacia. She is from [facility]. She recently had an episode of cough and spasmodic coughing. She has multiple allergies. She is required steroids in the past to relieve this. She went to the emergency room at [facility] this past Thursday and was given an injection of steroid, as well as a nebulizer treatment ?2. She was released from the hospital on Thursday morning and was continued on a Medrol Dosepak. She went back to work but last night had quite a bit of sinus drainage and pain whenever she coughed. This is primarily located in her trachea. She has been hoarse and has had some sore throat. Patient has prior history of pneumonia. She does not use tobacco. Medications include Benicar 20 mga day, Cardizem, iron 20 mg a day, aspirin 81 mg a day. Omeprazole 1 tablet a day, Lipitor 40 mg a day, vitamin D, fish oil and that has in the past used Advair, though not any at the present time. Her gas transfer operator is Dr. Carey at the [facility]. Review of Systems Constitutional: negative. ENT: sore throat, hoarseness and sinus drainage, but negative. Cardiovascular: negative. Respiratory: shortness of breath and cough, but as noted in HPI. Gastrointestinal: negative. Genitourinary: negative. Musculoskeletal: negative. Integumentary and Breasts: negative. Neurological: negative. Psychiatric: negative. Active Problems 1. Generalized anxiety disorder (300.02) 2. Hyperlipidemia (272.4) 3. Hypertension (401.9) Past 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 ?? History of Allergic [...] Current Meds Medication Name Instruction Advair Diskus 250-50 MCG/DOSE Inhalation Aerosol Powder Breath Activated ALPRAZolam 0.5 MG Oral Tablet TAKE 1 [...] tablet daily Loratadine 10 MG Oral Tablet Nitrofurantoin Monohyd Macro 100 MG Oral Capsule TAKE 1 CAPSULE TWICE DAILY. Simvastatin 10 MG Oral Tablet TAKE 1 TABLET BY MOUTH AT BEDTIME Vitamin D 1000 UNIT Oral Tablet Xopenex HFA 45 MCG/ACT Inhalation Aerosol Allergies 1. Ciprofloxacin HCl TABS 2. Codeine Derivatives 3. Iodinated Contrast Media 4. Penicillins Vitals Signs [Data Includes: Current Encounter] Temperature: 98.3 F, Oral Respiration: 14 Respiration Quality: Normal Systolic: 124, LUE, Sitting Diastolic: 74, LUE, Sitting Height: 5 ft 3 in Physical Exam Constitutional General appearance: No acute distress, well appearing and well nourished. Eyes Conjunctiva and lids: No swelling, erythema or discharge. Pupils and irises: Equal, round and reactive to light. Ears, Nose, Mouth, and Throat External inspection of ears and nose: Normal. Otoscopic examination: Tympanic membranes translucent with normal light reflex. Canals patent without erythema. Oropharynx: Normal with no erythema, edema, exudate or lesions. Air way narrowing. Pulmonary Respiratory effort: Abnormal. Patient has a few wheezes that I can hear. No adventitial sounds. Auscultation of lungs: Clear to auscultation. Cardiovascular Auscultation of heart: Normal rate and rhythm, normal S1 and S2, without murmurs. Assessment 1. Laryngotracheobronchitis (490) 2. Asthma (493.90) Plan Asthma ?? Allergy Referral Physician Referral Consult Status: Permanent Deferral - Patient to Schedule ?? Follow-up visit in 3 weeks Evaluation and Treatment Follow-up with dr maya Status: Complete Done: [id number] Asthma, Laryngotracheobronchitis ?? Start: Advair Diskus 100-50 MCG/DOSE Inhalation Aerosol Powder Breath Activated; INHALE 1 PUFF TWICE DAILY ?? Start: Advair Diskus 500-50 MCG/DOSE Inhalation Aerosol Powder Breath Activated; INHALE 1 PUFF TWICE DAILY Discussion/Summary Drink plenty of fluids and use Robitussin 2 teaspoons 3 times a day. Use Advair 500/50 one inhalation twice a day for 2 weeks, then 100/50 one ablation twice a day for 2 weeks. Use albuterol nebulizer treatment twice a day as needed for the next 5 days. I recommended that she see her gas transfer operator onceagain. Finished her Medrol. She can use a tudorza inhaler twice a day. Finish out her Medrol Dosepak. Return to see us here in 3 weeks. End of Encounter Meds Medication Name Instruction Advair Diskus 100-50 MCG/DOSE Inhalation Aerosol Powder Breath Activated INHALE 1 PUFF TWICE DAILY. Advair Diskus 250-50 MCG/DOSE Inhalation Aerosol Powder Breath Activated Advair Diskus 500-50 MCG/DOSE Inhalation Aerosol Powder [...] tablet daily Loratadine 10 MG Oral Tablet Nitrofurantoin Monohyd Macro 100 MG Oral Capsule TAKE 1 CAPSULE TWICE DAILY. Simvastatin 10 MG Oral Tablet TAKE 1 TABLET BY MOUTH AT BEDTIME Vitamin D 1000 UNIT Oral Tablet Xopenex HFA 45 MCG/ACT Inhalation Aerosol Scribed for Tom eBllo, by Jenelle Chisholm. 04/20/2014 4:29 PM I, Tom Bello, personally performed the services described in this documentation, as scribed by Jenelle Chisholm in my presence, and it is both accurate and complete. Signatures Electronically signed by : Jenelle Chisholm, ; Apr 20 2014 4:46PM EST (Author) Electronically signed by : Tom Bello M.D.; Apr 23 2014 4:49PM EST (Author) documented in this encounter Plan of Treatment Not on file documented as of this encounter Visit Diagnoses Not on filedocumented in this encounter
--- OUTSIDE RECORDS SUMMARY | 2024-08-02 15:11 | XMS_ITS | Encounter Summary ---
[facility] [address] [place] [address] Care Team Providers Care Console Operator Name Role Phone Huber Grossman MD Primary Care Provider Barbara valladares Encounter Details Date Type Department Care Team (Late st Contact Info) Description 04/30/2018 11:35 AM EDT Lab [facility] AT [address] [place] [id number] Tremors of nervous system Social History Tobacco Use Types Packs/Day Years [...] Procedure Name Priority Date/Time Associated Diagnosis Comments TSH Routine 04/30/2018 11:18 AM EDT Tremors of nervous system T4, FREE Routine 04/30/2018 11:18 AM EDT Tremors of nervous system VITAMIN B12 Routine 04/30/2018 11:18 AM EDT Tremors of nervous system documented in this encounter Results * T4, Free (04/30/2018 11:18 AM EDT) Free T4 0.97 0.89 - 1.76 ng/dL 04/30/2018 2:59 PM EDT [facility] Blood Venipuncture / Unknown 04/30/2018 11:18 AM EDT 04/30/2018 11:18 AM EDT us Jennifer Craven MD LAB BLOOD ORDERABLES Final Resu lt Performing Organization Address City/[facility]/ZIP Co de Phone Number [facility]
[address] [place] [address], * TSH (04/30/2018 11:18 AM EDT) TSH 4.496 0.350 - 5.350 mIU/mL 04/30/2018 2:59 PM EDT [facility] Blood Venipuncture / Unknown 04/30/2018 11:18 AM EDT 04/30/2018 11:18 AM EDT us Jennifer Craven MD LAB BLOOD ORDERABLES Final Resu lt Performing Organization Address City/[facility]/ZIP Co de Phone Number [facility]
[address] [place] [address], * Vitamin B12 (04/30/2018 11:18 AM EDT) Vitamin B-12 213 211 - 911 pg/mL 04/30/2018 2:59 PM EDT [facility] Blood Venipuncture / Unknown 04/30/2018 11:18 AM EDT 04/30/2018 11:18 AM EDT us Jennifer Craven MD LAB BLOOD ORDERABLES Final Resu lt Performing Organization Address [facility]/ZIP Co de Phone Number [facility]
[address] [place] [address], documented in this encounter Visit Diagnoses Diagnosis Tremors of nervous system documented in this encounter Care Teams Console Operator Relationship Specialty Start Date End Date Ngoc, Huber D, MD PCP - General Family Medicine 02/08/18 09/28/19 documented as of this encounter
--- OUTSIDE RECORDS SUMMARY | 2024-08-02 15:11 | XMS_ITS | Encounter Summary ---
[facility] Address [address] [place] [address] Care Team Providers Care Pegger Dobby Looms Name Role Phone Huber Grossman MD Primary Care Provider Barbara valladares Encounter Details Date Type Department Care Team (Late st Contact Info) Description 04/28/2018 Telephone [facility] [address] [place] [phone] Remigio Morton MA Social History Tobacco [...] Telephone Encounter - Remigio Morton MA - 04/28/2018 12:50 PM EDT Called informed pt. Triston DICK ----- Message from Huber Grossman MD sent at 04/28/2018 11:45 AM EDT ----- Regarding: RE: MEDS Contact: rx sent thanks ----- Message ----- From: Remigio Morton MA Sent: 04/27/2018 4:56 PM To: Huber Grossman MD Subject: FW: MEDS I refilled the omeprazole and Azelastine, but I didn't see her still taking the others. Please advise. ----- Message ----- From: Kirti Carey, Luis Felipe Rep Sent: 04/27/2018 2:24 PM To: Remigio Morton MA Subject: MEDS PT CALLED AND SAID THAT SHE HAS BEEN TRYING TO GET HER MEDS SENT TO [facility]. THE ONES THAT ARENOT THERE ARE: OMEPRAZOLE 20MG CRESTOR 10 MG AZELASTINE 205.5 MCG/0.15% CYMBICORT 160MCG-4.5MCG FLONASE 50MCG #GENERIC IS FINE. #90 DAY SUPPLY WITH REFILLS SHE ALSO WANTS TO MAKE SURE THAT SHE IS TAKING THE RIGHT BENICAR. SHE SAID BEFORE SHE WAS TAKING BENICAR HCL. documented in this encounter Plan of Treatment Not on file documented as of this encounter Visit Diagnoses Not on filedocumented in this encounter Care Teams Pegger Dobby Looms Relationship Specialty Start Date End Date Huber Grossman MD PCP - General Family Medicine 02/08/18 09/28/19 documented as of this encounter
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
--- OUTSIDE RECORDS SUMMARY | 2024-08-02 15:11 | XMS_ITS | Encounter Summary ---
Author Organization [facility] Address [address] [place] [address] Care Team Providers Care Transfer Iron Operator Name Role Phone Unavailable Primary Care Provider Unavailabl e Encounter Details Date Type Department Care Team (Late st Contact Info) Description 03/18/2013 Office Visit Converted [facility] [address] [phone] Huber Grossman MD Social History [...] Sign Reading Time Taken Comments Blood Pressure 118/75 03/18/2013 3:19 PM EDT Pulse 78 03/18/2013 3:19 PM EDT Temperature - - Respiratory Rate - - Oxygen Saturation - - Inhaled Oxygen Concentration - - Weight - - Height 160 cm (5' 3 ) 03/18/2013 3:19 PM EDT Body Mass Index - - documented in this encounter Progress Notes * Huber Grossman MD - 03/18/2013 3:10 PM EDT Chief Complaint Re-Eval HTN,HL,BARBI History of Present Illness HPI: Generally doing well now had an episode of soa went to er in [place] for eval. Anxiety Disorder (Brief): The patient is being seen for a routine clinic follow- up of anxiety disorder. Hypertension (Follow-Up): The patient presents for follow-up of primary hypertension. The patient states she has been doing well with her blood pressure control since the last visit. Comorbid Illnesses: nephropathy. Symptoms: Medications: The patient is adherent with her medication regimen. Anxiety (Follow-Up): The patient is being seen for follow-up of anxiety. The patient reports no change in the condition. Medications: the patient is adherent to her medication regimen. Hyperlipidemia (Follow-Up): The patient states her hyperlipidemia has been under good control sincethe last visit. Comorbid Illnesses: hypertension. Symptoms: Review of Systems Constitutional: stressed, but not feeling poorly. ENT: negative. Current Meds 1. Advair Diskus 250-50 MCG/DOSE Inhalation Aerosol Powder Breath Activated; Therapy: (Recorded:[id number]) to 2. ALPRAZolam 0.5 MG Oral Tablet; Therapy: (Recorded:[id number]) to 3. Benicar 20 MG Oral Tablet; Therapy: (Recorded:[id number]) to 4. Fish Oil CAPS; Therapy: (Recorded:[id number]) to 5. Loratadine 10 MG Oral Tablet; Therapy: (Recorded:[id number]) to 6. Simvastatin 10 MG Oral Tablet; Therapy: (Recorded:[id number]) to 7. Vitamin D 1000 UNIT Oral Tablet; Therapy: (Recorded:[id number]) to 8. Xopenex HFA 45 MCG/ACT Inhalation Aerosol; Therapy: (Recorded:[id number]) to Allergies 1. Ciprofloxacin HCl TABS 2. Codeine Derivatives 3. Iodinated Contrast Media 4. Penicillins Vitals Signs [Data Includes: Current Encounter] Heart Rate: 78, Systolic: 118, Diastolic: 75, Comments:: Patient declined weight she is on diet., Height: 5 ft 3 in Physical Exam Constitutional General appearance: No acute distress, well appearing and well nourished. Overweight. Eyes Conjunctiva and lids: No swelling, erythema or discharge. Pupils and irises: Equal, round and reactive to light. Ears, Nose, Mouth, and Throat Oropharynx: Normal with no erythema, edema, exudate or lesions. Neck Neck: Supple, symmetric, trachea midline, no masses. Pulmonary Respiratory effort: No increased work of breathing or signs of respiratory distress. Auscultation of lungs: Clear to auscultation. Cardiovascular Auscultation of heart: Normal rate and rhythm, normal S1 and S2, without murmurs. Examination of extremities for edema and/or varicosities: Normal. Psychiatric Orientation to person, place, and time: Normal. Mood and affect: Normal. Assessment 1. Hyperlipidemia 272.4 2. Hypertension 401.9 3. Generalized Anxiety Disorder 300.02 Plan Health Maintenance (V70.0) ?? ALPRAZolam 0.5 MG Oral Tablet; TAKE 1 TABLET Daily PRN; Last Rx:[id number] Hyperlipidemia (272.4) ?? Simvastatin 10 MG Oral Tablet; TAKE 1 TABLET BY MOUTH AT BEDTIME; Last Rx:[id number] Hypertension (401.9) ?? Benicar 20 MG Oral Tablet; Take 1 tablet twice daily; Last Rx:[id number] ?? Diltiazem HCl ER Coated Beads 180 MG Oral Capsule Extended Release 24 Hour; TAKE 1 CAPSULE Daily; Therapy: [id number] to (Evaluate:14Sep2013); Last Rx:[id number] ?? Follow-up visit in 3 months Evaluation and Treatment Follow-up Requested for: [id number] Discussion/Summary need fasting lab on rtc has not been taking simvaststin trying to lose weight Signatures Electronically signed by : Huber Grossman M.D.; Mar 20 2013 7:29PM (Author) documented in this encounter Plan of Treatment Not on file documented as of this encounter Visit Diagnoses Not on filedocumented in this encounter
--- OUTSIDE RECORDS SUMMARY | 2024-08-02 15:11 | XMS_ITS | Encounter Summary ---
[facility] Address [address] [place] [address] Care Team Providers Care E M Assembler Name Role Phone Unavailable Primary Care Provider Unavailabl e Encounter Details Date Type Department Care Team (Late st Contact Info) Description 07/15/2014 Office Visit Converted [facility] [address] [phone] Tom Bello MD [address] [place] [address] Social History Tobacco Use Types Packs/Day Years Used Date Smoking Tobacco: Never Assessed Comments Unknown Sex and Gender Information Value Date Recorded Sex Assigned at Not on file Legal Sex Female 12:36 PM EDT Gender Identity Not on file Sexual Orientation Not on file documented as of this encounter Last Filed Vital Signs Vital Sign Reading Time Taken Comments Blood Pressure - - Pulse 84 07/15/2014 8:02 AM EST Temperature 36.7 ??C (98.1 ??F) 07/15/2014 8:02 AM ES T Respiratory Rate 16 07/15/2014 8:02 AM EST Oxygen Saturation - - Inhaled Oxygen Concentration - - Weight 121 kg (266 lb 0.1 oz) 07/15/2014 8:02 AM EST Height 160 cm (5' 3 ) 07/15/2014 8:02 AM EST Body Mass Index 47.12 07/15/2014 8:02 AM EST documented in this encounter Progress Notes * Tom Bello MD - 07/15/2014 8:00 AM EST Chief Complaint Pharyngitis History of Present Illness HPI: Pt was seen on the 4th was dx with pharyngitis, throat is not feeling any better. The patient is been treated with Lincocin IM as well as clindamycin orally for pharyngitis over the last 2 or 3 days. She does not has developed a stomatitis. She has a history of previous bronchitis treated withazithromycin. She subsequently attributed recurrence of atrial fibrillation. 2. Use of a azithromycin. She is had no recurrence of that symptom. She has complaints of discomfort in the back of her throat. His been no fever or chills. She has a prior history of allergy to Cipro as well as to codeine, iodine and anaphylaxis with penicillin. Medications. She also has a history of arrhythmias. Review of Systems Constitutional: negative. ENT: as noted in HPI. Cardiovascular: as noted in HPI. Respiratory: negative. Gastrointestinal: negative. Genitourinary: negative. Musculoskeletal: negative. Active Problems 1. Abdominal pain (789.00) 2. Anxiety (300.00) 3. Asthma (493.90) 4. Generalized anxiety disorder (300.02) 5. Hyperlipidemia (272.4) 6. Hypertension (401.9) 7. Laryngospasm (478.75) 8. Laryngotracheobronchitis (490) 9. Pharyngitis (462) Past 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 ?? History of Allergic [...] TAKE 1 CAPSULE EVERY 6 HOURS DAILY. Diltiazem HCl ER Coated Beads 120 MG [...] Current Encounter] Temperature: 98.1 F Heart Rate: 84 Respiration: 16 Height: 5 ft 3 in Weight: 266 lb BMI Calculated: 47.12 BSA Calculated: 2.18 Physical Exam Constitutional General appearance: No acute distress, well appearing and well nourished. Obese female inno acute distress. Eyes Conjunctiva and lids: No swelling, erythema or discharge. Pupils and irises: Equal, round and reactive to light. Ears, Nose, Mouth, and Throat External inspection of ears and nose: Normal. Otoscopic examination: Tympanic membranes translucent with normal light reflex. Canals patent without erythema. Oropharynx: Abnormal. There is erythema of the pharynx as well as of the soft palate. There is no ulceration. Remainder of the mouth is free of any erythema or other lesions. Pulmonary Respiratory effort: No increased work of breathing or signs of respiratory distress. Auscultation of lungs: Clear to auscultation. Neck Neck: Supple, symmetric, trachea midline, no masses. Thyroid: Normal, no thyromegaly. Cardiovascular Auscultation of heart: Normal rate and rhythm, normal S1 and S2, without murmurs. Examination of extremities for edema and/or varicosities: Normal. Assessment 1. Pharyngitis (462) Plan Pharyngitis ?? Start: HCl - 12.5 MG/5ML Oral Elixir; swish, gargle, then spit 5 ml qid prn ?? Start: DS 800-160 MG Oral Tablet; TAKE 1 TABLET TWICE DAILY UNTIL FINISHED ?? Culture Throat , Nasopharynx , or Nasal; Status:In Progress - Specimen/Data Collected; Done: 15Jul2014 Discussion/Summary Is still appears to be a pharyngitis. I recommended that she hold her Advair and on the naris sincethey are steroid-containing preparations. We will check a throat culture. Discontinue the clindamycin and use instead Bactrim DS twice a day for 7 days. She can also use Benadryl elixir swishes 4 times a day as needed. Return to see us if needed. She will call regarding the results of her throat culture. End of Encounter Meds Medication Name Instruction [...] TAKE 1 CAPSULE EVERY 6 HOURS DAILY. Diltiazem HCl ER Coated Beads 120 MG Oral Capsule Extended Release 24 Hour TAKE 1 CAPSULE DAILY. DiphenhydrAMINE HCl - 12.5 MG/5ML Oral Elixir swish, gargle, then spit 5 ml qid prn Fish Oil CAPS Lipitor 40 MG Oral Tablet (Atorvastatin Calcium) Take 1 tablet daily Loratadine 10 MG Oral Tablet Sulfamethoxazole-TMP DS 800-160 MG Oral Tablet TAKE 1 TABLET TWICE DAILY UNTIL FINISHED. Vitamin D 1000 UNIT Oral Tablet Xopenex HFA 45 MCG/ACT Inhalation Aerosol Signatures Electronically signed by : Tom Bello M.D.; Jul 16 2014 3:59PM EST (Author) documented in this encounter Plan of Treatment Not on file documented as of this encounter Visit Diagnoses Not on filedocumented in this encounter
--- OUTSIDE RECORDS SUMMARY | 2024-08-02 15:11 | XMS_ITS | Encounter Summary ---
[facility] Address [address] [place] [address] Care Team Providers Care Multi Mission Helicopter Aircrewman Name Role Phone Dano Romero MD Primary Care Provider [phone] Encounter Details Date Type Department Care Team (Late st Contact Info) Description 11/20/2017 External CPT II IS MANAGER - [facility] Social History Tobacco Use Types Packs/Day Years [...] documented as of this encounter Care Teams Multi Mission Helicopter Aircrewman Relationship Specialty Start Date End Date Dano Romero MD [address] [place] [address] PCP - General Internal Medicine 09/29/19 documented as of this encounter
--- OUTSIDE RECORDS SUMMARY | 2024-08-02 15:11 | XMS_ITS | Encounter Summary ---
Author Organization [facility] Address [address] [place] [address] Care Team Providers Care Departmental Shipping Clerk Name Role Phone Unavailable Primary Care Provider Unavailabl e Encounter Details Date Type Department Care Team (Late st Contact Info) Description 07/10/2014 12:37 PM EST - 07/10/2014 11:59 PM EST Hospital Encounter [facility] DEPARTMENT [address] [place] [phone] Huber Grossman MD Social History Tobacco Use [...]
--- OUTSIDE RECORDS SUMMARY | 2024-08-02 15:11 | XMS_ITS | Encounter Summary ---
[facility] Address [address] [place] [address] Care Team Providers Care Network Security Engineer Name Role Phone Huber Grossman MD Primary Care Provider Barbara valladares Encounter Details Date Type Department Care Team (Late st Contact Info) Description 05/03/2018 Telephone [facility] [address] [facility] [address] [place] [address] Carolyne Espinosa MA Social History Tobacco Use Types Packs/Day [...] encounter Miscellaneous Notes * Telephone Encounter - Carolyne Espinosa MA - 05/03/2018 8:33 AM EDT Patient advised that she understands and have no questions * Telephone Encounter - Carolyne Espinosa MA - 05/03/2018 8:33 AM EDT ----- Message from Jennifer Craven MD sent at 04/30/2018 4:30 PM EDT ----- Her thyroid function test is normal but her B12 is on the lowest limit of normal hence she should get B12 injections once a month for the next 6 months. She should talk to her PCP about that. documented in this encounter Plan of Treatment Not on file documented as of this encounter Visit Diagnoses Not on filedocumented in this encounter Care Teams Network Security Engineer Relationship Specialty Start Date End Date Huber Grossman MD PCP - General Family Medicine 02/08/18 09/28/19 documented as of this encounter
--- OUTSIDE RECORDS SUMMARY | 2024-08-02 15:11 | XMS_ITS | Encounter Summary ---
[facility] Address [address] [place] [address] Care Team Providers Care Oil Heater Operator Name Role Phone Dano Romero MD Primary Care Provider [phone] Encounter Details Date Type Department Care Team (Late st Contact Info) Description 02/02/2018 Telephone [facility] [address] [place] [phone] Huber Grossman MD Social History Tobacco Use Types Packs/Day Years Used Date Smoking Tobacco: Never Assessed Comments Unknown Sex and Gender Information Value Date Recorded Sex Assigned at Not on file Legal Sex Female 12:36 PM EDT Gender Identity Not on file Sexual Orientation Not on file documented as of this encounter Miscellaneous Notes * Telephone Encounter - Josue Otero - 02/02/2018 9:57 AM EDT Pt called documented in this encounter Plan of Treatment Not on file documented as of this encounter Visit Diagnoses Not on filedocumented in this encounter Additional Health Concerns Infection Onset Date Last Indicated Resolved Time 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 09/08/2019 09/08/2019 documented as of this encounter Care Teams Oil Heater Operator Relationship Specialty Start Date End Date Dano Romero MD [address] [place], [place] [id number] PCP - General Internal Medicine 09/29/19 documented as of this encounter
--- OUTSIDE RECORDS SUMMARY | 2024-08-02 15:11 | XMS_ITS | Encounter Summary ---
Author Organization [facility] Address [address] [place] [address] Care Team Providers Care Senior Javascript Developer Name Role Phone Huber Grossman MD Primary Care Provider Barbara valladares Reason for Visit * Reason Onset Date Comments Med Refill 09/20/2018 Encounter Details Date Type Department Care Team (Late st Contact Info) Description 09/20/2018 Refill [facility] [address] [facility] [address] [place] [phone] Remigio Morton MA Social History Tobacco Use [...] filedocumented in this encounter Care Teams Senior Javascript Developer Relationship Specialty Start Date End Date Huber Grossman MD PCP - General Family Medicine 02/08/18 09/28/19 documented as of this encounter
--- OUTSIDE RECORDS SUMMARY | 2024-08-02 15:11 | XMS_ITS | Encounter Summary ---
[facility] [address] [place] [address] Care Team Providers Care Help Desk Associate Name Role Phone Unavailable Primary Care Provider Unavailabl e Encounter Details Date Type Department Care Team (Late st Contact Info) Description 08/23/2014 8:11 AM EST - 08/23/2014 11:59 PM EST Hospital Encounter [facility] [address] [place] [phone] Fred Flynn MD [address] [facility] [address] [id number] Social History Tobacco Use Types Packs/Day [...] Procedure Name Priority Date/Time Associated Diagnosis Comments CBC AND DIFFERENTIAL Routine 08/23/2014 10:21 AM EST TSH Routine 08/23/2014 10:21 AM EST IRON Routine 08/23/2014 10:21 AM EST FERRITIN Routine 08/23/2014 10:21 AM EST LIPID PANEL Routine 08/23/2014 10:21 AM EST COMPREHENSIVE METABOLIC PANEL Routine 08/23/2014 10:21 AM EST documented in this encounter Results * Iron (08/23/2014 10:21 AM EST) Iron 81 50 - 175 mcg/dL [facility] Blood specimen (specimen) 08/23/2014 10:21 AM EST [facility] - 08/23/2014 5:21 PM EST Specimen Type: Blood Fred Flynn MD LAB BLOOD ORDERABLES Final Result Performing Organization Address [facility] Co de Phone Number [facility] [address] [place] [address], * Ferritin (08/23/2014 10:21 AM EST) Pathologist [facility] Ferritin 244 10 - 291 ng/mL [facility] Blood specimen (specimen) 08/23/2014 10:21 AM EST [facility] - 08/23/2014 5:21 PM EST Specimen Type: Blood Fred Flynn MD LAB BLOOD ORDERABLES Final Result Performing Organization Address [facility] Co de Phone Number [facility] [address] [place] [address], * TSH (08/23/2014 10:21 AM EST) Pathologist [facility] TSH 2.930 0.350 - 5.350 UIU/mL [facility] Comment: Specimens containing fluorescein can produce falsely depressed values with this assay. Patients undergoing fluorescein dye angiography should wait 72 hours post- treatment before testing. Blood specimen (specimen) 08/23/2014 10:21 AM EST Narrative [facility] - 08/23/2014 5:21 PM EST Specimen Type: Blood Fred Flynn MD LAB BLOOD ORDERABLES Final Result [facility] [address] [place] [address], * (ABNORMAL) Lipid panel (08/23/2014 10:21 AM EST) Fasting? Yes - Y [facility] Total Cholesterol 255(H) 0 - 200 mg/dL [facility] Comment: DF by IF @ 08/23/2014 17:21 ?? Cholesterol Reference Ranges: Desirable: ? less than 200 mg/dL Borderline: ?200-239 mg/dL High: ?greater than 239 mg/dL Triglycerides 182(H) 0 - 150 mg/dL [facility] Comment: DF by IF @ 08/23/2014 17:21 Triglyceride Reference Ranges: Normal ? less than 150 mg/dL Borderline ?150-199 mg/dL High ? 200-499 mg/dL Very High ? greater than 499 mg/dL HDL Cholesterol 47 40 - 60 mg/dL [facility] Comment: DF by IF @ 08/23/2014 17:21 HDL Cholesterol Reference Ranges: Low ? less than 40 mg/dL High ?greater than 59 mg/dL LDL Cholesterol 211(H) 0 - 130 mg/dL [facility] Comment: US by IF @ 08/23/2014 17:21 LDL Cholesterol Reference Ranges: Optimal ?less than 100 mg/dL Near Optimal ? 100-129 mg/dL Borderline ?130-159 mg/dL High ? 160-189 mg/dL Very High ? greater than 189 mg/dL Blood specimen (specimen) 08/23/2014 10:21 AM EST Narrative [facility] - 08/23/2014 5:21 PM EST Specimen Type: Blood Fred Flynn MD LAB BLOOD ORDERABLES Final Result [facility] [address] [place] [address], * (ABNORMAL) Comprehensive metabolic panel (08/23/2014 10:21 AM EST) Glucose 98 70 - 100 mg/dL [facility] BUN 16 9 - 23 mg/dL [facility] Creatinine 0.6 0.6 - 1.3 mg/dL [facility] Sodium 140 132 - 146 mmol/L [facility] Potassium 4.3 3.5 - 5.5 mmol/L [facility] Chloride 104 99 - 109 mmol/L [facility] CO2 30 20 - 31 mmol/L [facility] Calcium 10.1 8.7 - 10.4 mg/dL [facility] Alkaline Phosphatase 102(H) 25 - 100 Units/L [facility] AST (SGOT) 19 0 - 33 Units/L [facility] ALT (SGPT) 15 7 - 40 Units/L [facility] Total Bilirubin 0.4 0.3 - 1.2 mg/dL [facility] Total Protein 7.2 5.7 - 8.2 g/dL [facility] Albumin 4.1 3.2 - 4.8 g/dL [facility] eGFR 101 ml/min/1.7 32 [facility] Comment: DF by IF @ 08/23/2014 17:21 ?? [employer] Guidelines ?Stage ? Description ?GFR ?1 ?Normal or High ? 90+ ?2 ?Mild decrease ? 60-89 ?3 ?Moderate decrease ?30-59 ?4 ?Severe decrease ?15-29 ?5 ?Kidney failure ?<15 Anion Gap 6 3 - 11 mmol/L [facility] Blood specimen (specimen) 08/23/2014 10:21 AM EST Narrative [facility] - 08/23/2014 5:21 PM EST Specimen Type: Blood Fred Flynn MD LAB BLOOD ORDERABLES Final Result Performing Organization Address City/State/[facility] Co de Phone Number [facility] [address] [place] [address], * CBC and Differential (08/23/2014 10:21 AM EST) WBC 7.58 3.50 - 10.80 [facility] RBC 4.67 3.89 - 5.14 M/[facility] Hemoglobin 14.3 11.5 - 15.5 g/dL [facility] Hematocrit 43.6 34.5 - 44.0 % [facility] MCV 93.4 80.0 - 99.0 fL [facility] MCH 30.6 27.0 - 31.0 pg [facility] MCHC 32.8 32.0 - 36.0 g/dL [facility] RDW-CV 13.3 11.3 - 14.5 % [facility] Platelets 278 150 - 450 K/[facility] Neutrophils Absolute 4.39 1.50 - 8.30 K/[facility] Lymphocytes Absolute 2.47 0.60 - 4.80 K/[facility] Monocytes Absolute 0.52 0.00 - 1.00 [facility] Eosin[facility] Absolute 0.15 0.10 - 0.30 [facility] Basophils Absolute 0.04 0.00 - 0.20 [facility] Neutrophil Rel % 57.9 41.0 - 71.0 % [facility] Lymphocyte Rel % 32.6 24.0 - 44.0 % [facility] Monocyte Rel % 6.9 0.0 - 12.0 % [facility] Eosinophil Rel % 2.0 0.0 - 3.0 % [facility] Basophil Rel % 0.5 0.0 - 1.0 % [facility] Immature Granulocyte Rel % 0.1 0.0 - 0.6 % [facility] Blood specimen (specimen) 08/23/2014 10:21 AM EST Narrative [facility] - 08/23/2014 5:06 PM EST Specimen Type: Blood us Fred Flynn MD LAB BLOOD ORDERABLES Final Result [facility] [address] [place] [address], documented in this encounter Visit Diagnoses Not on filedocumented in this encounter
--- OUTSIDE RECORDS SUMMARY | 2024-08-02 15:11 | XMS_ITS | Encounter Summary ---
Author Organization [facility] Address [address] [place] [address] Care Team Providers Care Car Record Clerk Name Role Phone Huber Grossman MD Primary Care Provider Barbara valladares Reason for Visit * Reason Comments Annual Exam Encounter Details Date Type Department Care Team (Late st Contact Info) Description 02/24/2018 1:15 PM EDT Office Visit [facility] [address] [phone] Huber Grossman MD Medicare annual wellness visit, subsequent (Primary Dx); Essential hypertension; Familial hypercholesterolemia; Class 1 obesity due to excess calories in adult, unspecified BMI, unspecified whether serious comorbidity present; Vitamin D deficiency; Other depression Social History Tobacco Use Types Packs/Day Years Used Date Smoking Tobacco: Never Assessed Tobacco Cessation:Counseling Given: Yes Comments Unknown Sex and Gender Information Value Date Recorded Sex Assigned at Not on file Legal Sex Female 12:36 PM EDT Gender Identity Not on file Sexual Orientation Not on file documented as of this encounter Last Filed Vital Signs Vital Sign Reading Time Taken Comments Blood Pressure 124/70 02/24/2018 1:12 PM EDT Pulse 100 02/24/2018 1:12 PM EDT Temperature 36.8 ??C (98.3 ??F) 02/24/2018 1:12 PM ED T Respiratory Rate - - Oxygen Saturation 94% 02/24/2018 1:12 PM EDT Inhaled Oxygen Concentration - - Weight 140 kg (309 lb 9.6 oz) 02/24/2018 1:12 PM EDT Height 160 cm (5' 3 ) 02/24/2018 1:12 PM EDT Body Mass Index 54.84 02/24/2018 1:12 PM EDT documented in this encounter Progress Notes * Huber Grossman MD - 02/24/2018 1:15 PM EDT QUICK REFERENCE INFORMATION: The ABCs of the Annual Wellness Visit Subsequent Medicare Wellness Visit HEALTH RISK ASSESSMENT 1950 Recent Hospitalizations: No hospitalization(s) within the last year.. Current Medical Providers: Patient Care Team: Huber Grossman MD as PCP - General (Family Medicine) Smoking Status: History Smoking Status ??? Not on file Smokeless Tobacco ??? Not on file Alcohol Consumption: History Alcohol use Not on file Depression Screen: PHQ-2/PHQ-9 Depression Screening 02/24/2018 Little interest or pleasure in doing things 1 Feeling down, depressed, or hopeless 1 Trouble falling or staying asleep, or sleeping too much 1 Feeling tired or having little energy 1 Poor appetite or overeating 3 Feeling bad about yourself - or that you are a failure or have let yourself or your family down 3 Trouble concentrating on things, such as reading the newspaper or watching television 0 Moving or speaking so slowly that other people could have noticed. Or the opposite - being so fidgety or restless that you have been moving around a lot more than usual 1 Thoughts that you would be better off , or of hurting yourself in some way 0 Total Score 11 If you checked off any problems, how difficult have these problems made it for you to do your work,take care of things at home, or get along with other people? Extremely dIfficult Health Habits and Functional and Cognitive Screening: No flowsheet data found. Does the patient have evidence of cognitive impairment? No Aspirin use counseling: Taking ASA appropriately as indicated Recent Lab Results: CMP: Lab Results Component Value Date BUN 16 08/23/2014 CREATININE 0.6 08/23/2014 NA 140 08/23/2014 K 4.3 08/23/2014 CO2 30 08/23/2014 CALCIUM 10.1 08/23/2014 ALBUMIN 4.1 08/23/2014 BILITOT 0.4 08/23/2014 ALKPHOS 102 (H) 08/23/2014 AST 19 08/23/2014 ALT 15 08/23/2014 Lipid Panel: Lab Results Component Value Date TRIG 182 (H) 08/23/2014 HDL 47 08/23/2014 HbA1c: Visual Acuity: No exam data present Age-appropriate Screening Schedule: Refer to the list below for future screening recommendations based on patient's age, sex and/or medical conditions. Orders for these recommended tests are listed in the plan section. The patient has been provided with a written plan. Health Maintenance Topic Date Due ??? TDAP/TD VACCINES (1 - Tdap) 02/02/1968 ??? ZOSTER VACCINE (1 of 2) 1999 ??? PNEUMOCOCCAL VACCINES (65+ LOW/MEDIUM RISK) (1 of 2 - PCV13) 2014 ??? MAMMOGRAM 02/02/2018 ??? COLONOSCOPY 02/02/2018 ??? LIPID PANEL 02/24/2018 ??? INFLUENZA VACCINE 04/07/2018 Subjective History of Present Illness Mirtha Mayberry is a 68 y.o. female who presents for an Subsequent Wellness Visit. The following portions of the patient's history were reviewed and updated as appropriate: allergies, current medications, past family history, past medical history, past social history, past surgicalhistory and problem list. No outpatient prescriptions prior to visit. No facility-administered medications prior to visit. Patient Active Problem List Diagnosis ??? Edema, peripheral ??? Anxiety, generalized ??? Airway hyperreactivity ??? HLD (hyperlipidemia) ??? BP (high blood pressure) ??? Laryngeal spasm ??? Class 1 obesity due to excess calories in adult Advance Care Planning: unknown Identification of Risk Factors: Risk factors include: weight , unhealthy diet, cardiovascular risk and increased fall risk. Review of Systems Constitutional: Positive for activity change and fatigue. Negative for chills and fever. HENT: Positive for congestion and postnasal drip. Negative for sore throat. Respiratory: Positive for shortness of breath. Negative for cough and wheezing. Cardiovascular: Positive for palpitations and leg swelling. Negative for chest pain. Gastrointestinal: Negative for diarrhea, nausea and vomiting. Endocrine: Negative for cold intolerance and heat intolerance. Genitourinary: Positive for frequency. Negative for dysuria. Musculoskeletal: Positive for arthralgias and back pain. Finger pain Skin: Very dry skin Allergic/Immunologic: Positive for environmental allergies. Neurological: Positive for light-headedness. Negative for seizures. Hematological: Negative for adenopathy. Does not bruise/bleed easily. Psychiatric/Behavioral: Positive for dysphoric mood and sleep disturbance. The patient is nervous/anxious. Compared to one year ago, the patient feels her physical health is worse. Compared to one year ago, the patient feels her mental health is worse. Objective Physical Exam Constitutional: She is oriented to person, place, and time. She appears well- developed. She is cooperative. Morbidly obese white female in no acute distress HENT: Head: Normocephalic. Right Ear: External ear [...] Pulmonary/Chest: Effort normal and breath sounds normal. Decreased breath sounds at the bases Abdominal: Soft. Bowel sounds are normal. There is no hepatosplenomegaly. Musculoskeletal: Normal range of motion. She exhibits no edema. Neurological: She is alert and oriented to person, place, and time. No focal deficits no lateralizing signs Skin: Skin is warm and dry. No rash noted. Psychiatric: Her behavior is normal. Judgment and thought content normal. Cognition and memory are normal. Depressed affect Nursing note and vitals reviewed. Vitals: 02/24/18 1312 BP: 124/70 BP Location: Other (Comment) Comment: wrist Patient Position: Sitting Cuff Size: Adult Pulse: 100 Temp: 98.3 ??F (36.8 ??C) TempSrc: Temporal Artery SpO2: 94% Weight: (!) 140 kg (309 lb 9.6 oz) Height: 160 cm (63 ) Patient's Body mass index is 54.84 kg/m??. BMI is above normal parameters. Recommendations include:referral to a weight management program. Assessment/Plan Patient Self-Management and Personalized Health Advice The patient has been provided with information about: weight management and fall prevention and preventive services including: ?? Bone densitometry screening, Diabetes screening, see lab orders, Glaucoma screening recommended,Screening electrocardiogram, Screening mammography, referral placed, Zostavax vaccine (Herpes Zoster). Visit Diagnoses: ICD-10-CM ICD-9-CM 1. Medicare annual wellness visit, subsequent Z00.00 V70.0 2. Essential hypertension I10 401.9 3. Familial hypercholesterolemia E78.01 272.0 4. Class 1 obesity due to excess calories in adult, unspecified BMI, unspecified whether serious comorbidity present E66.09 278.00 5. Vitamin D deficiency E55.9 268.9 6. Other depression F32.89 311 Orders Placed This Encounter Procedures ??? Comprehensive Metabolic Panel ??? Lipid Panel ??? TSH ??? Vitamin D 25 Hydroxy ??? CBC Auto Differential ? ? CBC & Differential Order Specific Question: Manual Differential Answer: No Outpatient Encounter Prescriptions as of 02/24/2018 Medication Sig Dispense Refill ??? azelastine (ASTELIN) 0.1 % nasal spray 2 sprays into each nostril 2 (Two) Times a Day. Use in each nostril as directed ??? diazePAM (VALIUM) 5 MG tablet Take 5 mg by mouth 2 (Two) Times a Day As Needed for Anxiety. ??? diltiaZEM SR (CARDIZEM SR) 120 MG 12 hr capsule Take 120 mg by mouth 2 (Two) Times a Day. ??? glipiZIDE (GLUCOTROL XL) 5 MG ER tablet Take 5 mg by mouth Daily. ??? levalbuterol (XOPENEX HFA) 45 MCG/ACT inhaler Inhale 1-2 puffs Every 4 (Four) Hours As Needed for Wheezing. ??? olmesartan (BENICAR) 20 MG tablet Take by mouth. ??? omeprazole (priLOSEC) 20 MG capsule Take 20 mg by mouth Daily. ??? [DISCONTINUED] atorvastatin (LIPITOR) 40 MG tablet Take by mouth. ??? [DISCONTINUED] fluticasone-salmeterol (ADVAIR) 100-50 MCG/DOSE DISKUS Inhale 2 (Two) Times a Day. ??? venlafaxine XR (EFFEXOR-XR) 75 MG 24 hr capsule Take 1 capsule by mouth Daily. 30 capsule 2 No facility-administered encounter medications on file as of 02/24/2018. Reviewed use of high risk medication in the elderly: yes Reviewed for potential of harmful drug interactions in the elderly: not applicable Follow Up: Return in about 6 weeks (around 04/07/2018). Start on antidepressant therapy or depressed mood and depressed energy level and depressed initiative. Certainly needs to deal with morbid obesity as this is a primary factor in her health problems. See form An After Visit Summary and PPPS with all of these plans were given to the patient. documented in this encounter Plan of Treatment Not on file documented as of this encounter Procedures Procedure Name Priority Date/Time Associated Diagnosis Comments CBC WITH AUTO DIFFERENTIAL Routine 02/24/2018 2:23 PM EDT Essential hypertension Familial hypercholesterolemia VITAMIN D,25-HYDROXY Routine 02/24/2018 2:23 PM EDT Vitamin D deficiency CBC AND DIFFERENTIAL Routine 02/24/2018 2:23 PM EDT Essential hypertension Familial hypercholesterolemia TSH Routine 02/24/2018 2:23 PM EDT Essential hypertension Familial hypercholesterolemia Class 1 obesity due to excess calories in adult, unspecified BMI, unspecified whether serious comorbidity present LIPID PANEL Routine 02/24/2018 2:23 PM EDT Essential hypertension Familial hypercholesterolemia COMPREHENSIVE METABOLIC PANEL Routine 02/24/2018 2:23 PM EDT Essential hypertension Familial hypercholesterolemia documented in this encounter Results * (ABNORMAL) CBC Auto Differential (02/24/2018 2:23 PM EDT) [facility] Signature WBC 11.91(H) 3.50 - 10.80 10*3/mm3 02/24/2018 8:43 PM EDT [facility] RBC 5.00 3.89 - 5.14 10*6/mm3 02/24/2018 8:43 PM EDT [facility] Hemoglobin 15.0 11.5 - 15.5 g/dL 02/24/2018 8:43 PM EDT [facility] Hematocrit 48.4(H) 34.5 - 44.0 % 02/24/2018 8:43 PM EDT [facility] MCV 96.8 80.0 - 99.0 fL 02/24/2018 8:43 PM EDT [facility] MCH 30.0 27.0 - 31.0 pg 02/24/2018 8:43 PM EDT [facility] MCHC 31.0(L) 32.0 - 36.0 g/dL 02/24/2018 8:43 PM EDT [facility] RDW 13.8 11.3 - 14.5 % 02/24/2018 8:43 PM EDT [facility] RDW-SD 48.6 37.0 - 54.0 fl 02/24/2018 8:43 PM EDT [facility] MPV 10.6 6.0 - 12.0 fL 02/24/2018 8:43 PM EDT [facility] Platelets 240 150 - 450 10*3/mm3 02/24/2018 8:43 PM EDT [facility] Neutrophil % 70.2 41.0 - 71.0 % 02/24/2018 8:43 PM EDT [facility] Lymphocyte % 20.6(L) 24.0 - 44.0 % 02/24/2018 8:43 PM EDT [facility] Monocyte % 6.6 0.0 - 12.0 % 02/24/2018 8:43 PM EDT [facility] Eosinophil % 2.0 0.0 - 3.0 % 02/24/2018 8:43 PM EDT [facility] Basophil % 0.3 0.0 - 1.0 % 02/24/2018 8:43 PM EDT [facility] Immature Grans % 0.3 0.0 - 0.6 % 02/24/2018 8:43 PM EDT [facility] Neutrophils, Absolute 8.36(H) 1.50 - 8.30 10*3/mm3 02/24/2018 8:43 PM EDT [facility] Lymphocytes, Absolute 2.45 0.60 - 4.80 10*3/mm3 02/24/2018 8:43 PM EDT [facility] Monocytes, Absolute 0.79 0.00 - 1.00 10*3/mm3 02/24/2018 8:43 PM EDT [facility] Eosinophils, Absolute 0.24 0.00 - 0.30 10*3/mm3 02/24/2018 8:43 PM EDT [facility] Basophils, Absolute 0.03 0.00 - 0.20 10*3/mm3 02/24/2018 8:43 PM EDT [facility] Immature Grans, Absolute 0.04(H) 0.00 - 0.03 10*3/mm3 02/24/2018 8:43 PM EDT [facility] Blood Right upper arm structure / Unknown Venipuncture / Unknown 02/24/2018 2:23 PM EDT 02/24/2018 2:23 PM EDT Huber Grossman MD LAB BLOOD ORDERABLES Final Re sult Performing Organization Address [facility]/ZIP Co de Phone Number [facility]
[address] [place] [address], * Vitamin D 25 Hydroxy (02/24/2018 2:23 PM EDT) 25 Hydroxy, Vitamin D 20.4 ng/ml 02/24/2018 9:05 PM EDT [facility] Blood Right upper arm structure / Unknown Venipuncture / Unknown 02/24/2018 2:23 PM EDT 02/24/2018 2:23 PM EDT Narrative [facility] - 02/24/2018 9:05 PM EDT Reference Ranges for Total Vitamin D 25(OH) Deficiency ?<20.0 ng/ml Insufficiency ?? 20-30 ng/ml Sufficiency ?30-100 ng/ml Toxicity ? >100 ng/ml Huber Grossman MD LAB BLOOD ORDERABLES Final Re sult [facility]
[address] [place] [address], * (ABNORMAL) TSH (02/24/2018 2:23 PM EDT) TSH 6.341(H) 0.350 - 5.350 mIU/mL 02/24/2018 9:05 PM EDT [facility] Blood Right upper arm structure / Unknown Venipuncture / Unknown 02/24/2018 2:23 PM EDT 02/24/2018 2:23 PM EDT [facility] - 02/24/2018 9:05 PM EDT Due to abnormal TSH results, suggest ordering Free T4. us Huber Grossman MD LAB BLOOD ORDERABLES Final Re sult [facility]
[address] [place] [address], * Lipid Panel (02/24/2018 2:23 PM EDT) Total Cholesterol 175 0 - 200 mg/dL 02/24/2018 9:01 PM EDT [facility] Triglycerides 130 0 - 150 mg/dL 02/24/2018 9:01 PM EDT [facility] HDL Cholesterol 48 40 - 60 mg/dL 02/24/2018 9:01 PM EDT [facility] LDL Cholesterol 129 0 - 130 mg/dL 02/24/2018 9:01 PM EDT [facility] Blood Right upper arm structure / Unknown Venipuncture / Unknown 02/24/2018 2:23 PM EDT 02/24/2018 2:23 PM EDT [facility] - 02/24/2018 9:01 PM EDT Cholesterol Reference Ranges: Desirable ? < 200 mg/dL Borderline ?200-239 mg/dL High Risk ? > 239 mg/dL Triglyceride Reference Ranges: Normal ?< 150 mg/dL Borderline ?150-199 mg/dL High ?200-499 mg/dL Very High ? > 499 mg/dL HDL Reference Ranges: Low ?< 40 mg/dL High ? > 59 mg/dL LDL Reference Ranges: Optimal ? < 100 mg/dL Near Optimal ??100-129 mg/dL Borderline ?130-159 mg/dL High ?160-189 mg/dL Very High ? > 189 mg/dL us Huber Grossman MD LAB BLOOD ORDERABLES Final Re sult [facility]
[address] [place] [address], * (ABNORMAL) Comprehensive Metabolic Panel (02/24/2018 2:23 PM EDT) Glucose 129(H) 70 - 100 mg/dL 02/24/2018 9:01 PM EDT [facility] BUN 16 9 - 23 mg/dL 02/24/2018 9:01 PM EDT [facility] Creatinine 0.81 0.60 - 1.30 mg/dL 02/24/2018 9:01 PM EDT [facility] Sodium 142 132 - 146 mmol/L 02/24/2018 9:01 PM EDT [facility] Potassium 4.8 3.5 - 5.5 mmol/L 02/24/2018 9:01 PM EDT [facility] Chloride 98(L) 99 - 109 mmol/L 02/24/2018 9:01 PM EDT [facility] CO2 34.0(H) 20.0 - 31.0 mmol/L 02/24/2018 9:01 PM EDT [facility] Calcium 10.2 8.7 - 10.4 mg/dL 02/24/2018 9:01 PM EDT [facility] Total Protein 7.6 5.7 - 8.2 g/dL 02/24/2018 9:01 PM EDT [facility] Albumin 4.32 3.20 - 4.80 g/dL 02/24/2018 9:01 PM EDT [facility] ALT (SGPT) 19 7 - 40 U/L 02/24/2018 9:01 PM EDT [facility] AST (SGOT) 15 0 - 33 U/L 02/24/2018 9:01 PM EDT [facility] Alkaline Phosphatase 100 25 - 100 U/L 02/24/2018 9:01 PM EDT [facility] Total Bilirubin 0.4 0.3 - 1.2 mg/dL 02/24/2018 9:01 PM EDT [facility] eGFR Non Amer 70 >60 mL/min/1.7 3 02/24/2018 9:01 PM EDT [facility] Globulin 3.3 gm/dL 02/24/2018 9:01 PM EDT [facility] A/G Ratio 1.3(L) 1.5 - 2.5 g/dL 02/24/2018 9:01 PM EDT [facility] BUN/Creatinine Ratio 19.8 7.0 - 25.0 02/24/2018 9:01 PM EDT [facility] Anion Gap 10.0 3.0 - 11.0 mmol/L 02/24/2018 9:01 PM EDT [facility] Blood Right upper arm structure / Unknown Venipuncture / Unknown 02/24/2018 2:23 PM EDT 02/24/2018 2:23 PM EDT [facility] - 02/24/2018 9:01 PM EDT [employer] Guidelines Stage ? Description ?GFR 1 ? Normal or High ? 90+ 2 ? Mild decrease ?60-89 3 ? Moderate decrease ??30-59 4 ? Severe decrease ?15-29 5 ? Kidney failure ? <15 us Huber Grossman MD LAB BLOOD ORDERABLES Final Re sult [facility]
[address] [place] [address], documented in this encounter Visit Diagnoses Diagnosis Medicare annual wellness visit, subsequent- Primary Essential hypertension Unspecified essential hypertension Familial hypercholesterolemia Class 1 obesity due to excess calories in adult, unspecified BMI, unspecified whether serious comorbidity present Vitamin D deficiency Other depression documented in this encounter Care Teams Car Record Clerk Relationship Specialty Start Date End Date Huber Grossman MD PCP - General Family Medicine 02/08/18 09/28/19 documented as of this encounter
--- OUTSIDE RECORDS SUMMARY | 2024-08-02 15:11 | XMS_ITS | Encounter Summary ---
Author Organization [facility] Address [address] [place] [address] Care Team Providers Care Hog Cutter Name Role Phone Huber Grossman MD Primary Care Provider Barbara valladares Reason for Visit * Reason Onset Date Comments Med Refill 04/27/2018 Encounter Details Date Type Department Care Team (Late st Contact Info) Description 04/27/2018 Refill [facility] [address] [facility] [address] [place] [phone] Remigio Morton MA Social History Tobacco Use [...] on filedocumented in this encounter Care Teams Hog Cutter Relationship Specialty Start Date End Date Huber Grossman MD PCP - General Family Medicine 02/08/18 09/28/19 documented as of this encounter
--- OUTSIDE RECORDS SUMMARY | 2024-08-02 15:11 | XMS_ITS | Encounter Summary ---
Author Organization [facility] Address [address] [place] [address] Care Team Providers Care Secretary [employer] Name Role Phone Unavailable Primary Care Provider Unavailabl e Encounter Details Date Type Department Care Team (Late st Contact Info) Description 08/23/2014 Office Visit Converted [facility] [address] [facility] [address] [place] [phone] Fred Carr MD [address] [facility] [address] [place] [address] Social History Tobacco Use Types Packs/Day Years Used Date Smoking Tobacco: Never Assessed Comments Unknown Sex and Gender Information Value Date Recorded Sex Assigned at Not on file Legal Sex Female 12:36 PM EDT Gender Identity Not on file Sexual Orientation Not on file documented as of this encounter Last Filed Vital Signs Vital Sign Reading Time Taken Comments Blood Pressure 110/78 08/23/2014 9:20 AM EST Pulse 84 08/23/2014 9:20 AM EST Temperature 36.6 ??C (97.8 ??F) 08/23/2014 9:20 AM ES T Respiratory Rate 16 08/23/2014 9:20 AM EST Oxygen Saturation - - Inhaled Oxygen Concentration - - Weight 122 kg (267 lb 15.9 oz) 08/23/2014 9:20 A M EST Height 160 cm (5' 3 ) 08/23/2014 9:20 AM EST Body Mass Index 47.47 08/23/2014 9:20 AM EST documented in this encounter Progress Notes * Fred Carr MD - 08/23/2014 8:40 AM EST Chief Complaint Cough History of Present Illness Throat feels raw, and like it's closing up. Dry cough. Facial pain and pressure. No fever. Took saline nose spray and Motrin. No GI upset. Wants to get lab work done. Review of Systems Constitutional: negative. Head and Face: facial pain and facial pressure. Eyes: negative. ENT: nasal congestion, sore throat and scratchy throat. Cardiovascular: negative. Respiratory: cough and dry [...] Iodinated Contrast Media 4. Penicillins Vitals Recorded: [id number] 09:20AM Temperature 97.8 F Heart Rate 84 Respiration 16 Systolic 110 Diastolic 78 Height 5 ft 3 in Weight 268 lb BMI Calculated 47.47 BSA Calculated 2.19 Physical Exam Constitutional General appearance: No acute distress, well appearing and well nourished. Comfortable and overweight. Ears, Nose, Mouth, and Throat External inspection of ears and nose: Abnormal. Head congestion. Otoscopic examination: Tympanic membranes translucent with normal light reflex. Canals patent without erythema. Oropharynx: Abnormal. The tonsils were cryptic, but present. There was 3+ enlargement of both tonsils no exudate. The posterior pharynx was erythematous. Pulmonary Respiratory effort: No increased work of breathing or signs of respiratory distress. Auscultation of lungs: Clear to auscultation. Cardiovascular Examination of extremities for edema and/or varicosities: Normal. Assessment 1. Upper respiratory infection (465.9) Plan Upper respiratory infection 1. Start: MethylPREDNISolone (Dennis) 4 MG Oral Tablet (Medrol (Dennis)); TAKE DIRECTED ON PATIENT INSTRUCTION CARD 2. Start: Sulfamethoxazole-TMP DS 800-160 MG Oral Tablet (Bactrim DS); TAKE 1 TABLET TWICE DAILY Discussion/Summary check laboratory for iron and CMP along with lipids Future Appointments Date/Time Provider Specialty Site 08/25/2014 10:15 AM Huber Grossman M.D. Family Medicine [facility] Signatures Electronically signed by : Fred Carr M.D.; Aug 23 2014 10:06AM EST (Author) documented in this encounter Miscellaneous Notes * Letter - Interface, See Report - 08/23/2014 8:40 AM EST MIRTHA MAYBERRY, has been under my care and was unable to attend work from 08.23.14 to 08.23.14. MIRTHA may return to work on 08.24.14 with the following restrictions: No restrictions or limitations. If you have any questions or concerns please call my office at the above number. : Edgar CARR MD documented in this encounter Plan of Treatment Not on file documented as of this encounter Visit Diagnoses Not on filedocumented in this encounter
--- OUTSIDE RECORDS SUMMARY | 2024-08-02 15:11 | XMS_ITS | Encounter Summary ---
[facility] Address [address] [place] [address] Care Team Providers Care Shipping And Receiving Associate Name Role Phone Huber Grossman MD Primary Care Provider Barbara valladares Encounter Details Date Type Department Care Team (Late st Contact Info) Description 05/28/2018 Telephone [facility] GASTROENTEROLOGY [address] [place] [address] [address] [place] [address] Jailene Hodges MA Social History Tobacco Use Types Packs/Day [...] encounter Miscellaneous Notes * Telephone Encounter - Amara Guzman RMA - 05/28/2018 1:23 PM EDT Patient called back. Gave her biopsy results. * Telephone Encounter - Jailene Hodges MA - 05/28/2018 1:18 PM EDT Patient left voicemail for results, I called her back and LVM to call us back. Notes recorded by Jacob Nicholas MD on 05/21/2018 at 11:48 AM EDT Biopsies consistent with longstanding reflux induced change. Recommend follow up in GI clinic in 6 months documented in this encounter Plan of Treatment Not on file documented as of this encounter Visit Diagnoses Not on filedocumented in this encounter Care Teams Shipping And Receiving Associate Relationship Specialty Start Date End Date Huber Grossman MD PCP - General Family Medicine 02/08/18 09/28/19 documented as of this encounter
--- OUTSIDE RECORDS SUMMARY | 2024-08-02 15:12 | XMS_ITS | Encounter Summary ---
Author Organization [facility] ystem Address [address] [place] [address] Care Team Providers Care Pump Machine Operator Name Role Phone Unavailable Primary Care Provider Unavailabl e Encounter Details Date Type Department Care Team (Late st Contact Info) Description 01/13/2011 Historical Mammograp hy Encounter [facility] HISTORICAL CONV [address] [place] [address] Interface, See Report Social History Tobacco Use Types Packs/Day Years [...] Name Priority Date/Time Associated Diagnosis Comments MAMMO HISTORICAL RESULT Routine 01/13/2011 7:32 AM EDT documented in this encounter Results * MAMMO HISTORICAL RESULT (01/13/2011 7:32 AM EDT) Anatomical Region Laterality Modality Breast Mammography 01/13/2011 7:32 AM EDT Narrative 01/13/2011 9:52 AM EDT ?[facility] ? [address] ??[place], [place] [address] ? NAME: NAM MAYBERRY ? : ??[birth year] ??MR#: [id number] ? LOC: ?? CO ? AGE: 60Y ?? Pt type: CO ?Exam Date: 01/13/11 0733 ? SEX: F ?? AN#:[id number] ?Ck-in#: [id number] ? [facility] ? [address] [facility] ? [address] ? [place] ?[place] ?[address] ? Chk-in # ?? Order ?Exam ?[id number] ?? 0001 ? [id number] ??BC MAMM DIAG UNILAT DIG PNL*R ? Ord Diag: ABN MMG ? DIAGNOSTIC RIGHT MAMMOGRAM ?? HISTORY: Recall from screening examination dated 11/29/2010 for magnification views of new calcifications in a stable mass. ?? TECHNIQUE: ??Magnification views. ?? FINDINGS: There are two coarse peripheral calcifications within the stable macrolobulated mass. ?? IMPRESSION: BI-RADS CATEGORY III, probable benign findings right breast. 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 ?? RECOMMENDATION: 6 month followup right mammogram with repeat magnification views for continued surveillance. ?? iCAD was utilized. ?? The standard false-negative rate of mammography is between 10 and 25%. Complex patterns or increased breast density will markedly elevate the false-negative rate of mammography. ? A results letter, in lay terminology, will be given to the patient at the conclusion of the exam. ?/READ BY/ AFSANEH HERRERA ?/Released By/ AFSANEH HERRERA ?Released By Date/Time: ??01/13/11943 ?Dealership Manager: ??JBW ? FINAL ? Page ??1 ? RADIOLOGY REPORT us See Report Interface IMG MAMMOGRAPHY ORDERABLES Final Result documented in this encounter Visit Diagnoses Not on filedocumented in this encounter
--- OUTSIDE RECORDS SUMMARY | 2024-08-02 15:12 | XMS_ITS | Encounter Summary ---
Author Organization [facility] Address [address] [place] [address] Care Team Providers Care Voip Network Technician Name Role Phone Heladio Palm MD Primary Care Provider [phone] Reason for Visit * Reason Onset Date Comments [facility] Same Day Appt/Overbook Request 03/21/2024 Encounter Details Date Type Department Care Team (Late st Contact Info) Description 03/21/2024 Telephone [email or web address] [address] [place] [address] Luis Olivares MD [address] [address] [facility] Same Day Appt/Overbook Request Social History Tobacco Use Types Packs/Day Years Used Date Smoking Tobacco: Former Cigarettes 1 7 0 09/07/1992 - 09/07/1999 Passive Smoke Exposure: Past Smokeless Tobacco: Never Alcohol Use Standard Drinks/Week Comments Not Currently 0 (1 standard drink = 0.6 oz pur e alcohol) PHQ-2 Answer Date Recorded Patient Health Questionnaire-2 Score 0 02/08/2024 PHQ-9 Answer Date Recorded Patient Health Questionnaire-9 Score 12 06/12/2023 PHQ-2A Answer Date Recorded Patient Health Questionnaire-2 Score 4 06/12/2023 Comments Unknown Sex and Gender Information Value Date Recorded Sex Assigned at Not on file Legal Sex Female 8:26 PM EDT Gender Identity Not on file Sexual Orientation Not on file documented as of this encounter Miscellaneous Notes * Telephone Encounter - Germaine Gaines - 03/21/2024 11:22 AM EDT Same Day Appt/Overbook Request Reason for Call: Patient wanting to be seen belia for an eye infection. Best contact number: [phone] (home) Optimal time of day to reach caller: ANYTIME Additional comments/information from caller: None Note: Please do not reply to this message. Follow-up communication and further actions as a result of this message need to be communicated with the patient directly, if the patient is not active onMyChart. If the patient is active on MyChart, they will receive notification of the communication/outcome via MyChart. documented in this encounter Plan of Treatment Upcoming Encounters Date Type Department Care Team ([facility] Contact Info) Description 08/08/2024 1:00 PM EST Office Visit [facility] Nephrology, Bone & Mineral Metabolism [address] [facility], [address] [place] [address] Diana Ahumada MD [address] [place], [place] [id number] 12/30/2024 10:15 AM EDT Office Visit [facility] [address] [place] [address] Luis Olivares MD [address] [address] documented as of this encounter Visit Diagnoses Not on filedocumented in this encounter Additional Health Concerns Assessment Noted Time PHQ-9 Depression Total Score: 12 023 12:53 PM EDT A fall risk assessment has been complete d for the patient 02/08/2024 3:04 PM EDT A Body Mass Index follow-up plan has been documented for the patient 02/08/2024 3:35 PM EDT documented as of this encounter Care Teams Voip Network Technician Relationship Specialty Start Date End Date Heladio Palm MD [address] [place] [address] PCP - General Internal Medicine 05/02/22 documented as of this encounter
--- OUTSIDE RECORDS SUMMARY | 2024-08-02 15:12 | XMS_ITS | Encounter Summary ---
Author Organization [facility] Address [address] [place] [address] Care Team Providers Care District Leader Name Role Phone Heladio Palm MD Primary Care Provider [phone] Encounter Details Date Type Department Care Team (Latest Contact Info) Description 03/30/2024 Travel Social History Tobacco Use Types Packs/Day Years [...] as of this encounter Plan of Treatment Upcoming Encounters Date Type Department Care Team (Late st Contact Info) Description 08/08/2024 1:00 PM EST Office Visit [facility] Nephrology, Bone & Mineral Metabolism [address] [facility], [address] [place] [address] Diana Ahumada MD [address] [place] [address] 12/30/2024 10:15 AM EDT Office Visit [facility] [address] [place] [address] Luis Olivares MD [address] [place] [address] documented as of this encounter Visit Diagnoses Not on filedocumented in this encounter Additional Health Concerns Assessment Noted Time PHQ-9 Depression Total Score: 12 023 12:53 PM EDT A fall risk assessment has been complete d for the patient 02/08/2024 3:04 PM EDT A Body Mass Index follow-up plan has been documented for the patient 03/30/2024 2:46 PM EDT documented as of this encounter Care Teams District Leader Relationship Specialty Start Date End Date Heladio Palm MD [address] [place] [address] PCP - General Internal Medicine 05/02/22 documented as of this encounter
--- OUTSIDE RECORDS SUMMARY | 2024-08-02 15:12 | XMS_ITS | Encounter Summary ---
Author Organization [facility] Address [address] [place] [address] Care Team Providers Care Dumper Bulk System Name Role Phone Heladio Palm MD Primary Care Provider [phone] Encounter Details Date Type Department Care Team (Latest Contact Info) Description 11/23/2023 Travel Social History Tobacco Use Types Packs/Day Years Used Date Smoking Tobacco: Former Cigarettes 1 7 0 09/07/1992 - 09/07/1999 Passive Smoke Exposure: Past Smokeless Tobacco: Never Alcohol Use Standard Drinks/Week Comments Not Currently 0 (1 standard drink = 0.6 oz pur e alcohol) PHQ-2 Answer Date Recorded Patient Health Questionnaire-2 Score 0 11/23/2023 PHQ-9 Answer Date Recorded Patient Health Questionnaire-9 [...] Description 08/08/2024 1:00 PM EST Office Visit [facility] Nephrology, Bone & Mineral Metabolism [address] [facility], [address] [place] [address] Diana Ahumada MD [address] [place] [address] 12/30/2024 10:15 AM EDT Office Visit [facility] [address] [facility] [place] [address] Luis Olivares MD [address] [place] [address] documented as of this encounter Visit Diagnoses Not on filedocumented in this encounter Additional Health Concerns Assessment Noted Time PHQ-9 Depression Total Score: 12 023 12:53 PM EDT A fall risk assessment has been complete d for the patient 11/23/2023 2:56 PM EDT A Body Mass Index follow-up plan has been documented for the patient 12/03/2023 9:49 PM EDT documented as of this encounter Care Teams Dumper Bulk System Relationship Specialty Start Date End Date Heladio Palm MD [address] [place] [address] PCP - General Internal Medicine 05/02/22 documented as of this encounter
--- OUTSIDE RECORDS SUMMARY | 2024-08-02 15:12 | XMS_ITS | Encounter Summary ---
Author Organization [facility] Address [address] [place] [address] Care Team Providers Care Health Plan Advisor Name Role Phone Heladio Palm MD Primary Care Provider [phone] Reason for Referral * Imaging (Routine) - Closed Specialty Diagnoses / Procedures Referred By Tatoac t Referred To Contact Radiology Diagnoses Elevated serum creatinine Procedures US Renal Complete Alejandra Camacho MD [address] [address] Phone: tel: fax: Referral ID Status Reason Start Date Expiration Date Visits Re quested Visits Authorized [id number] Closed 11/23/2023 05/24/2025 1 1 Reason for Visit * Imaging (Routine) - Closed Specialty Diagnoses / Procedures Referred By Esequiel hall Referred To Contact Radiology Diagnoses Elevated serum creatinine Procedures US Renal Complete Alejandra Camacho MD [address] [address] Phone: tel: fax: Referral ID Status Reason Start Date Expiration Date Visits Re quested Visits Authorized [id number] Closed 11/23/2023 05/24/2025 1 1 Encounter Details Date Type Department Care Team (Latest Contact Info) Description 01/01/2024 12:08 PM EDT - 01/01/2024 11:59 PM EDT Hospital Encounter [facility] [address] [place] [address] Elevated serum creatinine Discharge Disposition: Home or Self Care Social [...] encounter Medications at Time of Discharge atorvastatin (Lipitor) 80 MG tabletIndication s:Coronary artery disease involving [place] coronary artery of [place] heart without angina pectoris TAKE 1 TABLET BY MOUTH 1 TIME EACH DAY. 90 tablet 3 01/14/2023 biotin 1000 MCG tablet 1 (one) time each day at the same time. carvedilol (Coreg) 25 MG tablet TAKE 1 TABLET BY MOUTH TWICE A DAY FOR 30 DAYS 04/17/2022 cholecalciferol (Vitamin D3) 25 MCG (1000 UT) tablet Take 1 tablet (1,000 Units) by mouth 1 (one) time each day. clopidogrel (Plavix) 75 MG tablet Take 1 tablet (75 mg) by mouth 1 (one) time each day. 07/01/2022 dapagliflozin (Farxiga) 10 MG tablet Take 1 tablet (10 mg) by mouth 1 (one) time each day. levothyroxine (Synthroid, Levoxyl) 100 MCG tablet Take 1 tablet (100 mcg) by mouth 1 (one) time each day. 03/01/2022 losartan (Cozaar) 50 MG tablet TAKE 1 TABLET BY MOUTH EVERY DAY FOR 30 DAYS 06/18/2022 magnesium oxide (Mag-Ox) 400 (240 Mg) MG tablet Take 1 tablet (400 mg) by mouth 1 (one) time each day. triamterene-hydr oCHLOROthiazide (Dyazide) 37.5-25 MG capsule Take 1 capsule by mouth 1 (one) time each day. FOR 90 DAYS 05/04/2023 venlafaxine (Effoxor) 100 MG tablet Take 1 tablet (100 mg) by mouth 1 (one) time each day. 04/19/2022 gabapentin (Neurontin) 300 MG capsule TAKE 1 CAPSULE BY MOUTH TWICE A DAY FOR NEUROPATHY SYMPTOMS 04/26/2022 4 metFORMIN (Glucophage) 500 MG tablet Take 1 tablet (500 mg) by mouth 2 (two) times a day with meals. 4 mupirocin (Bactroban) 2 % ointment 05/06/2023 4 pantoprazole (Protonix) 40 MG EC tablet 1 (one) time each day at the same time. 4 Zinc Sulfate 140 (50 Zn) MG tablet 1 (one) time each day at the same time. 4 documented as of this encounter Plan of Treatment Upcoming Encounters Date Type Department Care Team (Late st Contact Info) Description 08/08/2024 1:00 PM EST Office Visit [facility] Nephrology, Bone & Mineral Metabolism [address] [facility], [address] [place] [address] Diana Ahumada MD [address] [place] [address] 12/30/2024 10:15 AM EDT Office Visit [facility] [address] [place] [address] Luis Olivares MD [address] [address] documented as of this encounter Procedures Procedure Name Priority Date/Time Associated Diagnosis Comments US RENAL COMPLETE Routine 01/01/2024 1:1 3 PM EDT Elevated serum creatinine documented in this encounter Results * US Renal Complete (01/01/2024 1:13 PM EDT) Anatomical Region Laterality Modality Kidney Ultrasound Impressions 01/01/2024 6:59 PM EDT No hydronephrosis. CRITICAL RESULT: No. COMMUNICATION: Per this written report. By electronically signing this report, I, the attending physician, attest that I have personally reviewed the images/data for the above examination(s) and agree with the final edited report. Drafted by Alcides Garza MD on 01/01/2024 1:46 PM Final report signed by Felipa Lantigua MD on 01/01/2024 6:59 PM Narrative 01/01/2024 6:59 PM EDT CLINICAL INDICATION: CKD vs CRISTINE TECHNIQUE: Multiplanar cueto scale sonographic imaging of the kidneys. COMPARISON: CT abdomen and pelvis 12/20/2019 FINDINGS: Right Kidney: The right kidney is normal in size and echogenicity measuring 10.7 cm. No hydronephrosis. No contour deforming masses. No obvious calculi. Anechoic cyst with posterior acoustic enhancement and no particular vascularity is seen within interpolar region measuring 2.3 x 2.2 x 2.1 cm. Left Kidney: The left kidney is normal in size and echogenicity measuring 10.8 cm. No hydronephrosis. No obvious calculi. No convincing mass. Prominent column of Jaxson in the interpolar left kidney. Bladder: decompressed without obvious abnormality. Procedure Note Felipa Lantigua MD - 01/01/2024 CLINICAL INDICATION: CKD vs CRISTINE TECHNIQUE: Multiplanar cueto scale sonographic imaging of the kidneys. COMPARISON: CT abdomen and pelvis 12/20/2019 FINDINGS: Right Kidney: The right kidney is normal in size and echogenicitymeasuring 10.7 cm. No hydronephrosis. No contour deforming masses. Noobvious calculi. Anechoic cyst with posterior acoustic enhancement and noparticular vascularity is seen within interpolar region measuring 2.3 x2.2 x 2.1 cm. Left Kidney: The left kidney is normal in size and echogenicity okumxyesr57.8 cm. No hydronephrosis. No obvious calculi. No convincing mass.Prominent column of Jaxson in the interpolar left kidney. Bladder: decompressed without obvious abnormality. IMPRESSION: No hydronephrosis. CRITICAL RESULT: No. COMMUNICATION: Per this written report. By electronically signing this report, I, the attending physician, attestthat I have personally reviewed the images/data for the aboveexamination(s) and agree with the final edited report. Drafted by Alcides Garza MD on 01/01/2024 1:46 PM Final report signed by Felipa Lantigua MD on 01/01/2024 6:59 PM us Alejandra Camacho MD IMG US PROCEDURES Final Resu lt documented in this encounter Visit Diagnoses Diagnosis Elevated serum creatinine Other nonspecific findings on examination of blood documented in this encounter Additional Health Concerns Assessment Noted Time PHQ-9 Depression Total Score: 12 023 12:53 PM EDT A fall risk assessment has been complete d for the patient 11/23/2023 2:56 PM EDT A Body Mass Index follow-up plan has been documented for the patient 12/03/2023 9:49 PM EDT documented as of this encounter Care Teams Health Plan Advisor Relationship Specialty Start Date End Date Heladio Palm MD [address] [place] [address] PCP - General Internal Medicine 05/02/22 documented as of this encounter
--- OUTSIDE RECORDS SUMMARY | 2024-08-02 15:12 | XMS_ITS | Encounter Summary ---
Author Organization [facility] Address [address] [place] [address] Care Team Providers Care Manager Of Loss Prevention Operations Name Role Phone Unavailable Primary Care Provider Unavailabl e Encounter Details Date Type Department Care Team (Late st Contact Info) Description 11/29/2010 Historical Mammograp hy Encounter [facility] HISTORICAL CONV [address] [place] [address] Interface, See Report Social History [...] Associated Diagnosis Comments MAMMO HISTORICAL RESULT Routine 11/29/2010 8:00 AM EDT documented in this encounter Results * MAMMO HISTORICAL RESULT (11/29/2010 8:00 AM EDT) Anatomical Region Laterality Modality Breast Mammography 11/29/2010 8:00 AM EDT Narrative 11/29/2010 3:20 PM EDT ?[facility] ? [address] ??[place], [place] [address] ? NAME: NAM MAYBERRY ? : ??[birth year] ??MR#: [id number] ? LOC: ?? CO ? AGE: 60Y ?? Pt type: CO ?Exam Date: 11/29/10 08 ? SEX: F ?? AN#:[id number] ?Ck-in#: [id number] ? [facility] ? [address] [facility] ? [address] ? [place] ?[place] ?[address] ? Chk-in # ?? Order ?Exam ?[id number] ?? 0001 ? [id number] ??BC MAMM SCREEN BILAT DIG PNL ? Ord Diag: RTN MMG ? BILATERAL DIGITAL SCREENING MAMMOGRAM ?? CLINICAL INDICATION: ??60-year-old patient presents for routine screening mammogram. She has no reported breast complaints. She does report an interval 20 pound weight gain since her last mammogram. She has no personal or family history of breast cancer. ?? TECHNIQUE: Routine bilateral digital CC and MLO views were obtained. ?? COMPARISON: 08/29/2008, 02/29/2008, 02/03/2008 and 12/02/2006. ? FINDINGS: ??There are scattered fibroglandular densities which could obscure a lesion on mammography. ?? RIGHT BREAST: ??There is an approximately 1.0 cm macrolobulated mass present in the mid 3:00 position of the right breast. The mass has been present on prior studies and is unchanged in size. It does appear to have developed some associated calcifications. Therefore, would recommend patient return for magnification imaging. The remainder of the fibroglandular pattern appears stable. No spiculated areas of architectural distortion are noted. ?? LEFT BREAST: ??The fibroglandular pattern is stable in appearance. ??There is no evidence of mass, distortion or suspicious calcifications. ?? IMPRESSION: ??1. ??The left breast is stable and unremarkable in appearance. ? FINAL ?CONTINUED ?Page ??1 ? RADIOLOGY REPORT ?[facility] ? [address] ??[place], [place] [address] ? NAME: NAM MAYBERRY ? : ??[birth year] ??MR#: [id number] ? LOC: ?? CO ? AGE: 60Y ?? Pt type: CO ?Exam Date: 11/29/10 08 ? SEX: F ?? AN#:[id number] ?Ck-in#: [id number] ? SARAH,PRAVIN ? [address] [facility] ? [address] ? [place] ?[place] ?[address] ? Checkin-Exam Code Summary ? [id number] 2. ??Interval development of calcifications present in a lobulated mass in the right breast as described above. ??The mass itself is stable in size. ??It may be that the mass represents a cluster of cysts and the calcifications forming are milk of calcium. Nonetheless, would recommend patient return for magnification imaging. ?? ACR BIRADS CATEGORY: ??0, INCOMPLETE ?? RECOMMENDATION: ??Right CC and ML magnification views. ?? iCAD was utilized. ?? The standard false-negative rate of mammography is between 10 and 25%. Complex patterns or increased breast density will markedly elevate the false-negative rate of mammography. ? A letter, in lay terminology, with the results of this exam will be mailed to the patient. ?? The patient will be contacted by our office to schedule for the additional imaging evaluation. ??Please accept this as sufficient order for the additional imaging evaluation. ?/READ BY/ SALTY MENDOZA ?/Released By/ SALTY MENDOZA ?Released By Date/Time: ??11/29/101515 ?Surveillance Dual Rate Officer: ??DME ? FINAL ? Page ??2 ? RADIOLOGY REPORT us See Report Interface IMG MAMMOGRAPHY ORDERABLES Final Result documented in this encounter Visit Diagnoses Not on filedocumented in this encounter
--- OUTSIDE RECORDS SUMMARY | 2024-08-02 15:12 | XMS_ITS | Encounter Summary ---
Author Organization [facility] yste Address [address] [place] [address] Care Team Providers Care Public Service Director Name Role Phone Unavailable Primary Care Provider Unavailabl e Encounter Details Date Type Department Care Team (Late st Contact Info) Description 12/02/[address] [facility] HISTORICAL CONV [address] [place] [address] Interface, See Report Social History [...] Associated Diagnosis Comments MAMMO HISTORICAL RESULT Routine 12/02/2006 8:19 AM EDT documented in this encounter Results * MAMMO HISTORICAL RESULT (12/02/2006 8:19 AM EDT) Anatomical Region Laterality Modality Breast Mammography 12/02/2006 8:19 AM EDT Narrative 12/03/2006 9:01 AM EDT ? [address] ??[place], [place] [address] ? NAME: NAM LESTER ? : ??49 ??MR#: [id number] ? LOC: ?? DIS ? AGE: 56Y ?? Pt type: CO ?Exam Date: 12/02/06821 ? SEX: F ?? AN#:[id number] ?Ck-in#: [id number] ? SARAH,PRAVIN ? [address] [facility] ? [address] ? [place] ?[place] ?[address] ? Chk-in # ?? Order ?Exam ?[id number] ?? 0001 ? [id number] ??BC MAMM SCREENING BILAT DIGIT PNL ? Ord Diag: RTN MMG ?[id number] ?? 0002 ? [id number] ??BC MAMM OUTSIDE FILM DIGITIZED ? Ord Diag: PT BROUGHT OS FILMS ?? HISTORY: ?56 year old female for annual screening mammography with no reported breast complaints. No personal or family history of breast cancer is given. ?? BILATERAL DIGITAL MAMMOGRAM: ?? COMPARISON USED: ??09/03/04 from [facility], digitized. ?? TECHNIQUE: ??CC and MLO digital views of both breasts were performed. ?? FINDINGS: ??The breast parenchymal pattern is mild to fatty replaced. There are no worrisome masses, areas of architectural distortion, new asymmetries or pleomorphic calcifications. ?? Benign vascular calcifications are noted bilaterally. ??This is a little unusual in someone who is only 56 years old. ??These have been associated with cardiovascular disease and clinical correlation is recommended. Patches of denser tissue are noted centrally in both breasts in a mildly nodular pattern which appears stable. ??Benign left axillary lymph node is identified. ??Nodule is seen deep to the right nipple at the junction of the anterior and middle thirds on the CC view which is stable. ?? IMPRESSION: ??No mammographic evidence of malignancy or significant change from August 2004. ?? Bi-Rads II, benign. ? FINAL ?CONTINUED ?Page ??1 ? RADIOLOGY REPORT ?[facility] ? [address] ??[place], [place] [address] ? NAME: NAM LESTER ? : ??49 ??MR#: [id number] ? LOC: ?? DIS ? AGE: 56Y ?? Pt type: CO ?Exam Date: 03/28/07 0822 ? SEX: F ?? AN#:[id number] ?Ck-in#: [id number] ? SARAH,PRAVIN ? [address] [facility] ? [address] ? [place] ?[place] ?[address] ? Checkin-Exam Code Summary ? [phone] RECOMMENDATION: ??Yearly mammography, yearly physical exam, monthly self breast exam. ?? The standard false negative rate of mammography is between 10 and 25%. Complex patterns or increased breast density will markedly elevate the false negative rate of mammography. ?? The images were overread by iCAD. ?? A copy of this report in lay terminology has been sent to the patient. ?/READ BY/ AWILDA HERRING ?/Released By/ AWILDA HERRING ?Released By Date/Time: ??12/03/06858 ?Chief Technology Officer: ??JBW ? FINAL ? Page ??2 ? RADIOLOGY REPORT us See Report Interface IMG MAMMOGRAPHY ORDERABLES Final Result documented in this encounter Visit Diagnoses Not on filedocumented in this encounter
--- OUTSIDE RECORDS SUMMARY | 2024-08-02 15:12 | XMS_ITS | Clinical Summary ---
Author Organization [facility] Address [address] [place] [address] Care Team Providers Care Midwife Practitioner Name Role Phone Heladio Palm MD Primary Care Provider + [phone] Allergies Active Allergy Reactions Criticality Noted Date Comments Ciprofloxacin Unknown - Patient states they do not know rxn details Low 10/11/2010 Codeine Anaphylaxis,Nausea, Unknown - Patient states they do not know rxn details,Other - please document in the comment field High 10/11/2010 Gadolinium Derivatives Shortness of breath High 10/01/2022 Iodinated Contrast Media Shortness of breath High 07/01/2022 Iv Contrast Anaphylaxis,Unknown - Patient states they do not know rxn details High 10/11/2010 Per pt, she has strong sensitivity to CT contrast. per pt, reaction includes numbness and tingling fo lips and tongue. Metformin Other - please document in the comment field Low 03/21/2017 Chronic diarrhea Penicillins Other - please document in the comment field,Anaphylaxis,U nknown - Patient states they do not know rxn details High 10/11/2010 Per patient anaphylaxis, also started the PCN skin test and it had to be stopped at stage 2 Per patient anaphylaxis, also started the PCN skin test and it had to be stopped at stage 2 Has tolerated cephalexin and ceftriaxone 09/2019 Rivaroxaban Other - please document in the comment field Low 11/24/2019 caused spontaneous bleed Sulfa Drugs Unknown - Patient states they do not know rxn details High 09/09/2019 Numb tongue, dizzy, hemorrhagic circular skin reaction Sulfamethoxazole-Trimet hoprim Other - please document in the comment field High 07/22/2019 per patient's daughter reaction was like a burn marking on the patient's hip Recurrent burn of skin on hip when taking med, hemorrhagic circular skin reaction Trimethoprim Other - please document in the comment field Low 07/01/2022 Medications carvedilol (Coreg) 25 MG tablet TAKE 1 TABLET BY MOUTH TWICE A DAY FOR 30 DAYS 2 Active levothyroxine (Synthroid, Levoxyl) 100 MCG tablet Take 1 tablet (100 mcg) by mouth 1 (one) time each day. 2 Active venlafaxine (Effoxor) 100 MG tablet Take 1 tablet (100 mg) by mouth 1 (one) time each day. 2 Active cholecalciferol (Vitamin D3) 25 MCG (1000 UT) tablet Take 1 tablet (1,000 Units) by mouth 1 (one) time each day. Active magnesium oxide (Mag-Ox) 400 (240 Mg) MG tablet Take 1 tablet (400 mg) by mouth 1 (one) time each day. Active clopidogrel (Plavix) 75 MG tablet Take 1 tablet (75 mg) by mouth 1 (one) time each day. 2 Active losartan (Cozaar) 50 MG tablet TAKE 1 TABLET BY MOUTH EVERY DAY FOR 30 DAYS 2 Active biotin 1000 MCG tablet 1 (one) time each day at the same time. Active atorvastatin (Lipitor) 80 MG tabletIndicatio ns:Coronary artery disease involving chehalis coronary artery of chehalis heart without angina pectoris TAKE 1 TABLET BY MOUTH 1 TIME EACH DAY. 90 tablet 3 3 Active dapagliflozin (Farxiga) 10 MG tablet Take 1 tablet (10 mg) by mouth 1 (one) time each day. Active triamterene-hyd roCHLOROthiazid e (Dyazide) 37.5-25 MG capsule Take 1 capsule by mouth 1 (one) time each day. FOR 90 DAYS 3 Active acetaminophen (Tylenol 8 Hour) 650 MG ER tablet Take 1 tablet (650 mg) by mouth every 8 (eight) hours if needed for mild pain. Do not crush, chew, or split. Active tobramycin-dexa methasone (Tobradex) ophthalmic suspension Administer 1 drop into the left eye 4 (four) times a day. 5 mL 3 4 Active Active Problems Problem Noted Date Diagnosed Date Elevated serum creatinine 12/03/2023 Chronic hypercapnic respiratory failure 05/02/20 22 Neuropathy 05/02/2022 Asthma with acute exacerbation 09/07/2019 Acute on chronic respiratory failure with hypoxia and hypercapnia 09/06/2019 Atrial fibrillation 09/06/2019 Systolic CHF, chronic 09/06/2019 Super obesity 06/21/2019 Type 2 diabetes mellitus 04/18/2019 Chronic GERD 12/09/2018 Obesity hypoventilation syndrome 12/09/2018 Seasonal and perennial allergic rhinitis 019 Vertigo 04/30/2018 Laryngeal spasm 02/24/2018 Incontinence 11/22/2017 Obstructive sleep apnea 11/09/2017 Nonalcoholic steatohepatitis 08/04/2017 Left ventricular hypertrophy 02/12/2017 Diabetes mellitus type 2, uncontrolled 7 Subclinical hypothyroidism 05/27/2016 Allergic rhinitis, seasonal 09/19/2015 Moderate persistent asthma without complication 09/19/2015 Depression with anxiety 06/11/2015 CAD (coronary artery disease) 04/11/2015 Essential hypertension 06/15/2013 Hyperlipidemia 06/15/2013 Resolved Problems Problem Noted Date Diagnosed Date Resolved Date Anemia 11/07/2019 05/19/2023 Retroperitoneal hemorrhage 10/12/2019 0 05/19/2023 E. coli UTI (urinary tract infection) 09/10/2019 05/19/2023 CAP (community acquired pneumonia) 09/07/2019 05/19/2023 Combined form of senile cataract of right eye 04/18/20 19 05/19/2023 B12 deficiency 12/21/2018 05/19/2023 Atypical pigmented skin lesion 04/23/2017 05/19/2023 Edema, peripheral 11/27/2015 05/19/2023 Allergic rhinitis due to ani mal hair and dander 09/19/2015 05/19/2023 Encounters Date Type Department Care Team Description 08/02/2024 Travel 08/01/2024 Telephone [facility] [address], [address] [place] [address] Lashonda William, PRINTED CIRCUIT DESIGNER [facility] [place] [address] [place] [address] Willow Fry PA Coronary artery disease involving chehalis coronary artery of chehalis heart without angina pectoris from Last 3 Months Immunizations Name Administration Dates Next Due Influenza Vaccine, Quadrival ent, Adjuvanted 06/27/2021 Influenza, Unspecified 06/19/2016,2014,07/06/2014,2012,06/21/2012,06/27/2011 Influenza, high-dose, quadrivalent 06/04/2020,,09/17/2018 Influenza, injectable, quadr ivalent, preservative free 06/05/2017 Influenza, trivalent, adjuvanted 06/24/2019 Moderna COVID-19 Vaccine (Re d Cap) 12+ years 06/27/2021,11/01/2020,10/04/2020 Pneumococcal Conjugate PCV 13 05/27/2016 Zoster, live 04/23/2017 Family History 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 Relation Name Comments Conversions - Other Father Myocardi al Infarction Arrhythmias Heart disease Father lung mass Father Alzheimer's disease Mother Conversions - Other Mother Stroke O f The Left Anterior Cerebral Artery Relation Name Status Comments Father Mother Social History Tobacco Use Types Packs/Day Years Used Date Smoking Tobacco: Former Cigarettes 1 7 0 09/07/1992 - 09/07/1999 Passive Smoke Exposure: Past Smokeless Tobacco: Never Tobacco Cessation:Counseling Given: Not Answered Alcohol Use Standard Drinks/Week Comments Not Currently [...] Sign Reading Time Taken Comments Blood Pressure 117/77 02/08/2024 2:56 PM EDT Pulse 72 02/08/2024 2:56 PM EDT Temperature 36.4 ??C (97.5 ??F) 02/08/2024 2:56 PM ED T Respiratory Rate 16 02/08/2024 2:56 PM EDT Oxygen Saturation 93% 02/08/2024 2:56 PM EDT Inhaled Oxygen Concentration - - Weight 108 kg (237 lb) 02/08/2024 2:56 PM EDT Height 154.9 cm (5' 1 ) 02/08/2024 2:56 PM EDT Body Mass Index 44.78 02/08/2024 2:56 PM EDT Plan of Treatment Upcoming Encounters Date Type Department Care Team (Late st Contact Info) Description 08/08/2024 1:00 PM EST Office Visit [facility] Met[facility] [address], [address] [place] [address] Diana Ahumada MD [address] [place] [address] 12/30/2024 10:15 AM EDT Office Visit [facility] [address] [place] [address] Luis Olivares MD [address] [address] Health Maintenance Due Date Last Done Comments Dental Oral Exam 1949 Dental Prophylaxis 1949 Dental X-Ray: Bitewings 1949 Dental X-Ray: Full Mouth 1949 [facility]-Bone Density Scan 1949 [facility]-Infant/Child/Adol SDOH Screenings 1949 Diabetes: Dental Exam 1959 [facility]- SDOH Screenings 1967 [facility]-Adult SDOH Screenings 1967 [facility]-DTaP,Tdap,and Td Vaccines (1 - Tdap) 02/02/1968 [facility]-Hepatitis A Vaccines (1 of 2 - Risk 2-dose series) 02/02/1968 CT Colonography 1994 Colonoscopy 1994 FIT-DNA 1994 FIT 1994 FOBT 1994 Sigmoidoscopy 1994 [facility]-Colorectal Cancer Screening 1994 [facility]-Pneumococcal Vaccine: 65+ Years (2 of 2 - PPSV23 or PCV20) 07/22/2016 05/27/2016 [facility]-Zoster Vaccines (1 of 2) 06/18/2017 04/23/2017 [facility]-Medicare Annual Wellness (AWV) 02/24/2019 02/24/2018 [facility]-Diabetes: Hemoglobin A1C 05/22/2020, 11/23/2019, 09/07/2019, Additional history exists [facility]-RSV Vaccine: 60+ Years or (1 - 1-dose 75+ series) 02/02/2024 LTR-YEHBZ-36 Vaccine ( - 2023- season) 2024 06/27/2021, 11/01/2020, 10/04/2020 [facility]-Influenza Vaccine (#1) 05/08/202406/27, 06/04/2020, 06/24/2019, Additional history exists [facility]-Depression Screening 02/07/2025 02/08/2024, 02/2023 [facility]-Hepatitis C Screening Completed 12/13/2019, [facility]-Obesity Intervention Completed 024, 02/08/2024, 11/23/2023, Additional history exists [facility]-HIB Vaccines Aged Out No longer e ligible based on patient's age to complete this topic [facility]-HPV Vaccines Aged Out No longer e ligible based on patient's age to complete this topic [facility]-IPV Vaccines Aged Out No longer e ligible based on patient's age to complete this topic [facility]-Rotavirus Vaccines Aged Out No lo nger eligible based on patient's age to complete this topic Procedures Procedure Name Priority Date/Time Associated Diagnosis Comments HEPATITIS C ANTIBODY W/REFLEX TO HCV QUANT PCR Routine 12/13/2019 6:01 PM EDT HEMOGLOBIN A1C Routine 11/23/2019 2:45 PM EDT from Last 3 Months or Most Recently Relevant to Health Maintenance Results * Hepatitis C Antibody (12/13/2019 6:01 PM EDT) Hepatitis C Antibody NEGATIVE Reference Range: Negative SUNQUEST 12/13/2019 6:01 PM EDT 12/13/2019 6:08 PM EDT us Rupesh Sierra MD LAB BLOOD ORDERABLES Final Resu lt SUNQUEST * (ABNORMAL) Hemoglobin A1c (11/23/2019 2:45 PM EDT) Hemoglobin A1c 6.8(H) 4.7 - 6.0 % SUNQUEST Comment: Glycohemoglobin Reference Range, 0 years and up: ??4.7 to 6.0% . HA1C Interpretive Data: Diagnosis of Diabetes: Diabetic > or = 6.5% Pre-diabetic 5.7 to 6.4% Non-diabetic < or = 5.6% . Glycemic Targets for Type I and Type II Diabetics: Non- Adults <7.0% Adults <6.0% Children and Adolescents <7.5% . Source: ??[place] [employer]. Standards of medical care in diabetes, 2017. Diabetes Care.2017:40 (suppl 1):S1-S135. . HbA1c assay performed by an ion-exchange chromatography method that is certified traceable to the DCCT. 11/23/2019 2:45 PM EDT 11/23/2019 2:59 PM EDT Deng Brumfield APRN LAB BLOOD ORDERABLES Fadia ramirez Result Performing Organization Address City/State/[facility] Co de Phone Number SUNQUEST from Last 3 Months or Most Recently Relevant to Health Maintenance Insurance MEDICARE AETNA Care Teams Midwife Practitioner Relationship Specialty Start Date End Date Heladio Palm MD [address] [place] [address] PCP - General Internal Medicine 05/02/22
--- OUTSIDE RECORDS SUMMARY | 2024-08-02 15:12 | XMS_ITS | Encounter Summary ---
Author Organization [facility] ystem Address [address] [place] [address] Care Team Providers Care Heart Specialist Name Role Phone Unavailable Primary Care Provider Unavailabl e Encounter Details Date Type Department Care Team (Late st Contact Info) Description 02/03/2008 Historical Mammograp hy Encounter [facility] HISTORICAL CONV [address] [place] [address] Interface, See Report Social History [...] Associated Diagnosis Comments MAMMO HISTORICAL RESULT Routine 02/03/2008 8:52 AM EDT documented in this encounter Results * MAMMO HISTORICAL RESULT (02/03/2008 8:52 AM EDT) Anatomical Region Laterality Modality Breast Mammography 02/03/2008 8:52 AM EDT Narrative 02/03/2008 3:14 PM EDT ?[facility] ? [address] ??[place], [place] [address] ? NAME: NAM LESTER ? : ??48 ??MR#: [id number] ? LOC: ?? CO ? AGE: 58Y ?? Pt type: CO ?Exam Date: 02/03/08 08 ? SEX: F ?? AN#:[id number] ?Ck-in#: [id number] ? PRAVIN SMITH ? [address] [facility] ? [address] ? [place] ?[place] ?[address] ? Chk-in # ?? Order ?Exam ?[id number] ?? 0001 ? [id number] ??BC MAMM SCREEN BILAT DIG PNL ? Ord Diag: RTN MMG ? HISTORY: ?? 58 year old female with no personal or family history of breast cancer for routine screening. ?? BILATERAL DIGITAL MAMMOGRAM: ?? FILM COMPARISON: ??The exam is compared to prior exams, most recently dated 12/02/06. ?? FINDINGS: ??The breast parenchymal pattern is a mixture of fat and fibroglandular tissue. ??Overall, the tissue is heterogeneously dense. There are a couple of new calcifications on the right which are probably vascular. ??Six month follow up will be necessary. Nodularity in the right breast may be increasing. ??These may represent intramammary lymph nodes. Spot compression views are recommended. ?? The left breast is stable. ?? IMPRESSION: ??Nodularity on the right which appears to be increasing. Spot compression views are recommended. These may represent intramammary lymph nodes. Six month follow up on the right is also recommended for calcifications which are probably vascular. ?? Bi-Rads 0, incomplete. ??Needs additional imaging. ?? The patient will be contacted by our office for the additional studies. Please accept this as sufficient as an order for additional imaging. ?? The standard false negative rate of mammography is between 10 and 25%. Complex patterns or increased breast density will markedly elevate the false negative rate of mammography. ? FINAL ?CONTINUED ?Page ??1 ? RADIOLOGY REPORT ?[facility] ? [address] ??[place], [place] [address] ? NAME: NAM LESTER ? : ??48 ??MR#: [id number] ? LOC: ?? CO ? AGE: 58Y ?? Pt type: CO ?Exam Date: 02/03/08 0854 ? SEX: F ?? AN#:[id number] ?Ck-in#: [id number] ? SARAH,PRAVIN ? [address] [facility] ? [address] ? [place] ?[place] ?[address] ? Checkin-Exam Code Summary ? [id number] ?? ICAD was utilized. ?? A copy of this report in lay terminology has been sent to the patient. ?/READ BY/ KALI GREGORY ?/Released By/ AWILDA L ATKINS ?Released By Date/Time: ??02/02/ 1506 ?Wire Brush Operator: ??JBW ? FINAL ? Page ??2 ? RADIOLOGY REPORT us See Report Interface IMG MAMMOGRAPHY ORDERABLES Final Result documented in this encounter Visit Diagnoses Not on filedocumented in this encounter
--- OUTSIDE RECORDS SUMMARY | 2024-08-02 15:12 | XMS_ITS | Encounter Summary ---
Author Organization [facility] Address [address] [id number] Care Team Providers Care Wound Care Coordinator Name Role Phone Heladio Palm MD Primary Care Provider [phone] Reason for Visit * Reason Comments Follow-up Encounter Details Date Type Department Care Team ([facility] st Contact Info) Description 02/08/2024 4:00 PM EDT Office Visit [facility] Nephrology, Bone & Mineral Metabolism [address], [address] [place] [address] Alejandra Camacho MD [address] [place] [address] Stage 3 chronic kidney disease, unspecified whether stage 3a or 3b CKD (CMS/HCC) (Primary Dx); Mixed stress and urge urinary incontinence; Type 2 diabetes mellitus with other specified complication, without long-term current use of insulin (CMS/HCC); Mixed hyperlipidemia; Essential hypertension; Coronary artery disease involving quechan coronary artery of quechan heart without angina pectoris Social History Tobacco Use Types Packs/Day Years [...] Mass Index 44.78 02/08/2024 2:56 PM EDT documented in this encounter Miscellaneous Notes * Progress Notes - Diana Ahumada MD - 02/08/2024 4:00 PM EDT Nephrology Consult Note Patient: Mirtha Barrios Date of Consult: 02/08/2024 Time of Consult: 3:24 PM Referring Provider: Sammie East Reason for Consult: CKD HPI: Mrs. Mirtha Barrios is a 74 y.o. female with a history of CAD post stent in LAD, Afib, left ventricular hypertrophy, chronic fatigue, asthma, HTN, DELL on BiPAP, history of IgA Vasculitis (2007) who presents for CKD f/u. Today, she reports she is doing well. Creatinine in November of 2023 was down to 1.3 but she had labs in December at her PCP's office which showed a creatinine of 1.49. This was after a few weeks of starting finasteride unknown, this medicine was started by her PCP for her kidneys. Blood pressure is well-controlled at 117/77, she is compliant with her medications. She continues to have overflow and stress incontinence. Denies any LUTS symptoms. Medications: Home Medications: Current Outpatient Medications: acetaminophen (Tylenol 8 Hour) 650 MG ER tablet, Take 1 tablet (650 mg) by mouth every 8 (eight) hours if needed for mild pain. Do not crush, chew, or split., Disp: , Rfl: atorvastatin (Lipitor) 80 MG tablet, TAKE 1 TABLET BY MOUTH 1 TIME EACH DAY., Disp: 90 tablet, Rfl:3 biotin 1000 MCG tablet, 1 (one) time each day at the same time., Disp: , Rfl: carvedilol (Coreg) 25 MG tablet, TAKE 1 TABLET BY MOUTH TWICE A DAY FOR 30 DAYS, Disp: , Rfl: cholecalciferol (Vitamin D3) 25 MCG (1000 UT) tablet, Take 1 tablet (1,000 Units) by mouth 1 (one) time each day., Disp: , Rfl: clopidogrel (Plavix) 75 MG tablet, Take 1 tablet (75 mg) by mouth 1 (one) time each day., Disp: , Rfl: dapagliflozin (Farxiga) 10 MG tablet, Take 1 tablet (10 mg) by mouth 1 (one) time each day., Disp: , Rfl: Finerenone 10 MG tablet, Take 1 tablet by mouth Daily., Disp: , Rfl: levothyroxine (Synthroid, Levoxyl) 100 MCG tablet, Take 1 tablet (100 mcg) by mouth 1 (one) time each day., Disp: , Rfl: losartan (Cozaar) 50 MG tablet, TAKE 1 TABLET BY MOUTH EVERY DAY FOR 30 DAYS, Disp: , Rfl: magnesium oxide (Mag-Ox) 400 (240 Mg) MG tablet, Take 1 tablet (400 mg) by mouth 1 (one) time each day., Disp: , Rfl: triamterene-hydroCHLOROthiazide (Dyazide) 37.5-25 MG capsule, Take 1 capsule by mouth 1 (one) time each day. FOR 90 DAYS, Disp: , Rfl: venlafaxine (Effoxor) 100 MG tablet, Take 1 tablet (100 mg) by mouth 1 (one) time each day., Disp: , Rfl: Physical Exam: Visit Vitals BP 117/77 (BP Location: Left arm, Patient Position: Sitting, BP Cuff Size: Large adult) Pulse 72 Temp 36.4 ??C (97.5 ??F) (Temporal) Resp 16 Ht 1.549 m (5' 1 ) Wt 108 kg (237 lb) SpO2 93% BMI 44.78 kg/m?? Smoking Status Former BSA 2.16 m?? Gen: Sitting up in chair; awake, alert HEENT: MMM, NC/AT Neck: Supple CV: Audible S1, S2, no m/r/g appreciated Pulm: Clear to auscultation, no increased work of breathing on room air Abd: Soft, non-distended Extremities: No LE edema Skin: No rashes noted on observed skin Neuro: Awake and alert. Non focal, appropriate mood Laboratory: Renal Panel: Lab Results Component Value Date NA 138 11/23/2023 K 4.1 11/23/2023 CL 100 11/23/2023 CO2 25 11/23/2023 BUN 25 (H) 11/23/2023 CA 8.8 (L) 12/27/2019 PHOS 3.2 11/23/2023 MBD: Lab Results Component Value Date PTH 52 11/23/2023 CALCIUM 10.1 11/23/2023 CAION 5.3 (H) 11/27/2019 PHOS 3.2 11/23/2023 CBC: Lab Results Component Value Date WBC 12.93 (H) 11/23/2023 RBC 4.40 11/23/2023 HGB 13.7 11/23/2023 HCT 41.7 11/23/2023 PLT 289 11/23/2023 MCV 95 11/23/2023 MCH 31.1 11/23/2023 MCHC 32.9 11/23/2023 RDW 12.8 11/23/2023 NRBC 0.0 11/23/2023 Iron studies: Lab Results Component Value Date TIBC 256 01/11/2014 IMPRESSION:: Mrs. Mirtha Barrios is a 73 y.o. female with a history of CAD post stent in LAD, Afib, left ventricular hypertrophy, chronic fatigue, asthma, HTN, DELL on BiPAP, history of IgA Vasculitis (2007) who presents for consultation regarding her CKD. Assessment: CKD w/ Hx of IgA Vasculitis w/ Non-nephrotic Proteinuria - Cr 1.4 (12/2023 after starting Finerone), 1.3 (11/2023), 2.0 04/2023, previously Cr 0.6-0.7 - Etiology: Likely multifactorial to include IgA vasculitis, hx of CRISTINE, partial embolization of L renal artery, HTN and DKD - PCR 0.1, ACR undetectable - Renal US right kidney with anechoic cyst with posterior acoustic enhancement and no particular vascularity is seen within interpolar region measuring 2.3 x 2.2 x 2.1 cm. Left kidney with prominent column of Jaxson in the interpolar left kidney (variation of nml anatomy). T2DM - HgB A1C 6.8% in 2020 - Currently on Farxiga - No retinopathy (see's optho regularly), does have Neuropathy 3yrs HTN - Well controlled, currently on Losartan 50 daily, triamterene- hydrochlorothiazide, and Coreg 25 BID CAD s/p PCI to LAD - On Clopidogrel Hyperlipidemia in CKD - Per 2013 KDIGO Lipid Management Guidelines this patient meets criteria to be on a statin for cardiovascular risk reduction - Currently patient is on a statin and tolerating well DELL - Uses BiPAP Mixed Stress & Urge Incontinence - Not interested in seeing urology, has already had bladder surgery - Will continue timed voiding Morbid Obesity - BMI 44 - Working on weight loss, down 1kg in 3mo and 10kg in 1 year Plan: - Renal function from November 2023 showed significant improvement. Will obtain RFP today - Does not need Finerone recovery analyst pt has non-nephrotic range proteinuria and is already on ARB and SGLT2i - Continue current BP medication, continue checking BP at home. Discussed proper use of wrist cuff - Counseled on importance of maintaining tight glycemic control and BP control - Counseled to avoid dehydration, NSAIDs - RTC in 6mo with repeat labs Diana Ahumada MD Nephrology/ Critical Care Medicine Fellow Cosigned by Alejandra Camacho MD at 02/08/2024 3:34 PM EDT Associated attestation - Alejandra Camacho MD - 02/08/2024 3:34 PM EDT I saw and evaluated the patient with the resident/fellow. I discussed the case with the resident/fellow and agree with the findings and plan as documented. documented in this encounter Plan of Treatment Upcoming Encounters Date Type Department Care Team (Late st Contact Info) Description 08/08/2024 1:00 PM EST Office Visit [facility] Nephrology, Bone & Mineral Metabolism [address], [address] [place] [address] Dinaa Ahumada MD [address] [place] [address] 12/30/2024 10:15 AM EDT Office Visit [facility] [address] [place] [address] Luis Olivares MD [address] [place] [address] Scheduled Orders Name Type Priority Associated Diagnoses Orde r Schedule PTH Intact Total Lab Routine Stage 3 chronic kidney disease, unspecified whether stage 3a or 3b CKD ([facility]) Expected: 08/09/2024 (Approximate), Expires: 08/09/2025 Vitamin D 25 Hydroxy Lab Routine Stage 3 chronic kidney disease, unspecified whether stage 3a or 3b CKD ([facility]/HCC) Expected: 08/09/2024 (Approximate), Expires: 08/09/2025 Albumin-creatinine ratio, urine, random Lab Routine Stage 3 chronic kidney disease, unspecified whether stage 3a or 3b CKD (CMS/HCC) Expected: 08/09/2024 (Approximate), Expires: 08/09/2025 Protein, Random, Urine with Creatinine Lab Routine Stage 3 chronic kidney disease, unspecified whether stage 3a or 3b CKD (CMS/HCC) Expected: 08/09/2024 (Approximate), Expires: 08/09/2025 CBC W/O Differential Lab Routine Stage 3 chronic kidney disease, unspecified whether stage 3a or 3b CKD (CMS/HCC) Expected: 08/09/2024 (Approximate), Expires: 08/09/2025 Renal Function Panel, Plasma Lab Routine Stage 3 chronic kidney disease, unspecified whether stage 3a or 3b CKD (CMS/HCC) Expected: 08/09/2024 (Approximate), Expires: 08/09/2025 documented as of this encounter Results * (ABNORMAL) Renal function panel (02/08/2024 3:32 PM EDT) Pathologist [facility] [place] Glucose, Plasma 142(H) 74 - 99 mg/dL 02/08/2024 5:48 PM EDT [facility] BUN, Plasma 32(H) 8 - 23 mg/dL 02/08/2024 5:48 PM EDT [facility] Creatinine, Plasma 1.57(H) 0.60 - 1.10 mg/dL 02/08/2024 5:48 PM EDT [facility] BUN/Creatinine Ratio 20 02/08/2024 5:48 PM EDT [facility] Sodium, Plasma 139 136 - 145 mmol/L 02/08/2024 5:48 PM EDT [facility] Potassium, Plasma 4.1 3.7 - 4.8 mmol/L 02/08/2024 5:48 PM EDT [facility] Chloride, Plasma 101 97 - 107 mmol/L 02/08/2024 5:48 PM EDT [facility] CO2, Plasma 24 22 - 29 mmol/L 02/08/2024 5:48 PM EDT [facility] Anion Gap 14 6 - 16 mmol/L 02/08/2024 5:48 PM EDT [facility] Total Calcium, Plasma 10.4(H) 8.9 - 10.2 mg/dL 02/08/2024 5:48 PM EDT [facility] Phosphorus, Plasma 3.5 2.5 - 4.5 mg/dL 02/08/2024 5:48 PM EDT [facility] Albumin, Plasma 4.3 3.5 - 5.2 g/dL 02/08/2024 5:48 PM EDT [facility] eGFRcr 34.3 mL/min/1.7 3m*2 02/08/2024 5:48 PM EDT [facility] Comment:Reported eGFRcr in m L/min/1.73m2 is based the CKD-EPI 2020 equation that does not use a race coefficient. Blood Venous blood specimen / Unknown Venipuncture / Unknown 02/08/2024 3:32 PM EDT 02/08/2024 3:32 PM EDT us Alejandra Camacho MD LAB BLOOD ORDERABLES Final R esult [facility] [address] [place] [address] documented in this encounter Visit Diagnoses Diagnosis Stage 3 chronic kidney disease, unspecified whether stage 3a or 3b CKD (CMS/HCC)- Primary Mixed stress and urge urinary incontinence Mixed incontinence urge and stress (male)(female) Type 2 diabetes mellitus with other specified complication, without long-term current use of insulin ([facility]) Mixed hyperlipidemia Essential hypertension Unspecified essential hypertension Coronary artery disease involving quechan coronary artery of quechan heart without angina pectoris documented in this encounter Additional Health Concerns Assessment Noted Time PHQ-9 Depression Total Score: 12 023 12:53 PM EDT A fall risk assessment has been complete d for the patient 02/08/2024 3:04 PM EDT A Body Mass Index follow-up plan has been documented for the patient 02/08/2024 3:35 PM EDT documented as of this encounter Care Teams Wound Care Coordinator Relationship Specialty Start Date End Date Heladio Palm MD [address] [place] [address] PCP - General Internal Medicine 05/02/22 documented as of this encounter
--- OUTSIDE RECORDS SUMMARY | 2024-08-02 15:12 | XMS_ITS | Encounter Summary ---
Author Organization [facility] Address [address] [id number] Care Team Providers Care Machine Pack Assembler Name Role Phone Heladio Palm MD Primary Care Provider [phone] Encounter Details Date Type Department Care Team ([facility] st Contact Info) Description 07/07/2023 Orders Only [facility] Card[facility] [address], [address] [place] [address] Angelina Valenzuela S/P coronary artery stent placement (Primary Dx) Social History Tobacco Use Types Packs/Day Years Used Date Smoking Tobacco: Former Cigarettes 1 7 0 09/07/1992 - 09/07/1999 Passive Smoke Exposure: Past Smokeless Tobacco: Never Alcohol Use Standard Drinks/Week Comments Not Currently 0 (1 standard drink = 0.6 oz pur e alcohol) PHQ-2 Answer Date Recorded Patient Health Questionnaire-2 Score 4 06/12/2023 PHQ-9 Answer Date Recorded Patient Health Questionnaire-9 Score 12 06/12/2023 PHQ-2A Answer Date Recorded Patient Health Questionnaire-2 Score 4 06/12/2023 Comments Unknown Sex and Gender Information Value Date Recorded Sex Assigned at Not on file Legal Sex Female 8:26 PM EDT Gender Identity Not on file Sexual Orientation Not on file documented as of this encounter Miscellaneous Notes * Progress Notes - Angelina Valenzuela - 07/07/2023 3:08 PM EDT Cardiac Rehab Note Patient Name: Mirtha Barrios Today's Date: 07/07/2023 Diagnosis Plan 1. S/P coronary artery stent placement Ambulatory referral to Cardiac Rehab Subjective: Ms. Trevon Barrios was referred to outpatient cardiac rehab in March. She has schedule with [facility] multiple times, but has not started. I was contacted by [facility] today who states Ms. Trevon Barrios is ready to start cardiac rehab and they are requesting a new referral. New referral entered and sent over to them. Written/Dicated by Angelina Valenzuela on 07/07/23 at 3:09 PM. documented in this encounter Plan of Treatment Upcoming Encounters Date Type Department Care Team ([facility] st Contact Info) Description 08/08/2024 1:00 PM EST Office Visit [facility] Nephrology, Bone & Mineral Metabolism [address], [address] [place] [address] Diana Ahumada MD [address] [place], [place] [id number] 12/30/2024 10:15 AM EDT Office Visit [facility] [address] [place] [address] Luis Olivares MD [address] [facility] [address] [place] [address] documented as of this encounter Visit Diagnoses Diagnosis S/P coronary artery stent placement- Primary Postsurgical percutaneous transluminal coronary angioplasty status documented in this encounter Additional Health Concerns Assessment Noted Time PHQ-9 Depression Total Score: 12 023 12:53 PM EDT A fall risk assessment has been complete d for the patient 06/12/2023 12:56 PM EDT A Body Mass Index follow-up plan has been documented for the patient 06/12/2023 1:57 PM EDT documented as of this encounter Care Teams Machine Pack Assembler Relationship Specialty Start Date End Date Heladio Palm MD [address] [place] [address] PCP - General Internal Medicine 8/26/22 documented as of this encounter
--- OUTSIDE RECORDS SUMMARY | 2024-08-02 15:12 | XMS_ITS | Encounter Summary ---
Author Organization [facility] Address [address] [id number] Care Team Providers Care Insurance Agency Owner Name Role Phone Heladio Palm MD Primary Care Provider [phone] Encounter Details Date Type Department Care Team ([facility] st Contact Info) Description 10/16/2023 Telephone [facility] Nephrology, Bone & Mineral Metabolism [address], [address] [place] [address] Lashonda William, [employer] - [facility] MAIN MEDICAL-SURGICAL Social History Tobacco Use Types Packs/Day Years [...] encounter Miscellaneous Notes * Telephone Encounter - Lashonda William - 10/16/2023 1:59 PM EST 10/16/23 called pt call went to and left about comfried dr godinezar documented in this encounter Plan of Treatment Upcoming Encounters Date Type Department Care Team (Late st Contact Info) Description 08/08/2024 1:00 PM EST Office Visit [facility] Nephrology, Bone & Mineral Metabolism [address], [address] [place] [address] Diana Ahumada MD [address] [place] [address] 12/30/2024 10:15 AM EDT Office Visit [facility] [address] [place] [address] Luis Olivares MD [address] [place] [address] documented as of this encounter [...] documented as of this encounter Care Teams Insurance Agency Owner Relationship Specialty Start Date End Date Heladio Palm MD [address] [place] [address] PCP - General Internal Medicine 05/02/22 documented as of this encounter
--- OUTSIDE RECORDS SUMMARY | 2024-08-02 15:12 | XMS_ITS | Encounter Summary ---
Author Organization [facility] Address [address] [place] [address] Care Team Providers Care Rock Loader Name Role Phone Unavailable Primary Care Provider Unavailabl e Encounter Details Date Type Department Care Team (Late st Contact Info) Description 02/29/2008 Historical Mammograp hy Encounter [facility] HISTORICAL CONV [address] [place] [address] Interface, See Report Social History [...] Associated Diagnosis Comments MAMMO HISTORICAL RESULT Routine 02/29/2008 1:49 PM EDT documented in this encounter Results * MAMMO HISTORICAL RESULT (02/29/2008 1:49 PM EDT) Anatomical Region Laterality Modality Breast Mammography 02/29/2008 1:49 PM EDT Narrative 02/29/2008 5:41 PM EDT ?[facility] ? [address] ??[place], [place] [address] ? NAME: NAM LESTER ? : ??48 ??MR#: [id number] ? LOC: ?? CO ? AGE: 58Y ?? Pt type: CO ?Exam Date: 02/29/08 1351 ? SEX: F ?? AN#:[id number] ?Ck-in#: [id number] ? [facility] ? [address] ? [address] ? [place] ?[place] ?[address] ? Chk-in # ?? Order ?Exam ?[id number] ?? 0001 ? [id number] ??BC MAMM DIAG UNILAT DIG PNL*R ? Ord Diag: ABN MMG ? DIAGNOSTIC RIGHT DIGITAL MAMMOGRAM: ?? Spot MLO, ML and CC views were performed as requested from the exam 02/03/08. ??The additional imaging show no definite reproducible change since prior examinations. ??Six month follow up is recommended. ?? Bi-Rads III, probably benign. ?? ICAD was utilized. ?? A copy of this report in lay terminology has been sent to the patient. ?/READ BY/ KALI GREGORY ?/Released By/ AWILDA HERRING ?Released By Date/Time: ??02/29/08 1718 ?[employer] Sales Representative: ??JBW ? FINAL ? Page ??1 ? RADIOLOGY REPORT us See Report Interface IMG MAMMOGRAPHY ORDERABLES Final Result documented in this encounter Visit Diagnoses Not on filedocumented in this encounter
--- OUTSIDE RECORDS SUMMARY | 2024-08-02 15:12 | XMS_ITS | Encounter Summary ---
Author Organization Healthcare Address [address] [place] [address] Care Team Providers Care Dealership General Manager Name Role Phone Heladio Palm MD Primary Care Provider [phone] Encounter Details Date Type Department Care Team (Latest Contact Info) Description 03/30/2024 1:30 PM EDT Office Visit [facility] [address] [place] [address] Luis Olivares MD [address] [address] Diabetes mellitus type 2 without retinopathy (CMS/HCC) (Primary Dx); Floppy lid syndrome; Blepharoconjunctivitis of left eye, unspecified blepharoconjunctivitis type; Pseudophakia of both eyes Social History Tobacco Use Types Packs/Day Years [...] encounter Miscellaneous Notes * Progress Notes - Luis Olivares MD - 03/30/2024 1:30 PM EDT Subjective HPI Mirtha Barrios is a 74 y.o. female presents today in clinic for eye infection with history of , Floppy lid syndrome, Acute follicular conjunctivitis of both eyes, Diabetes mellitus type 2 without retinopathy (CMS/HCC) and Pseudophakia of both eyes. Pt states that 2 years after her cataract sx she has been having issues with her eyelids. She notes that her eyelids when she sleeps will turn in. She notes that she wakes up with her left eye (OS) matted shut and tearing. She says she using systane drops at night. Last A1C: 7.1 C/o os redness/crusting off/on for last few mos; also cloudy vision os; Fhx neg Last edited by Luis Olivares MD on 03/30/2024 2:41 PM. ROS Positive for: Eyes Negative for: Constitutional, Gastrointestinal, Neurological, Skin, Genitourinary, Musculoskeletal,HENT, Endocrine, Cardiovascular, Respiratory, Psychiatric, Allergic/Imm, Heme/Lymph Last edited by Chitra Perez on 03/30/2024 2:04 PM. Objective Base Eye Exam Visual Acuity (Snellen - Linear) Right Left Dist sc 20/30 -1 20/25 -2+1 Dist ph sc 20/25 -2 Tonometry (Tonopen, 2:21 PM) Right Left Pressure 12 12 Pupils Pupils Right PERRL Left PERRL Visual Harrison Right Left Full Full Extraocular Movement Right Left Full Full Neuro/Psych Oriented x3: Yes Mood/Affect: Normal Slit Lamp and Fundus Exam External Exam Right Left External Normal Normal Slit Lamp Exam Right Left Lids/Lashes Normal for age floopy lid; inspissated meib gl Conjunctiva/Sclera Normal Normal Cornea Clear and compact Clear and compact Anterior Chamber Deep and quiet Deep and quiet Iris Normal pupil size and shape;no nvi Normal pupil size and shape;no nvi Lens pc iol stable pc iol stable Vitreous Normal Normal Fundus Exam Right Left Disc No edema; no vascularization; good color (Oliva 78 d Lens) No edema; no vascularization; good color (Oliva 78 d Lens) C/D Ratio 0.25 0.25 Macula Normal reflex; without edema Normal reflex; without edema Vessels Perfused; no tortuosity or abnormality Perfused; no tortuosity or abnormality Periphery Attached; no retinal or choroidal lesions Attached; no retinal or choroidal lesions Refraction Wearing Rx Sphere Right +2.50 Left +2.50 Type: readers Did not bring readers today. Manifest Refraction Sphere Cylinder [place] Dist [place] Right -0.50 Sphere 20/20-1 Left Harrison Sphere 090 20/20 Assessment/Plan Diagnoses and all orders for this visit: Diabetes mellitus type 2 without retinopathy (CMS/HCC) Floppy lid syndrome Blepharoconjunctivitis of left eye, unspecified blepharoconjunctivitis type Pseudophakia of both eyes Other orders - tobramycin-dexamethasone (Tobradex) ophthalmic suspension; Administer 1 drop into the left eye 4 (four) times a day. Initiate lid hygiene measures ou Ats qid/prn DM info given; discussed value of regulating blood glucose levels and lifestyle influences Rtc 1 yr ar/mr/dfe ou documented in this encounter Plan of Treatment Upcoming Encounters Date Type Department Care Team (Late st Contact Info) Description 08/08/2024 1:00 PM EST Office Visit [facility] Nephrology, Bone & Mineral Metabolism [address], [address] [place] [address] Diana Ahumada MD [address] [place] [address] 12/30/2024 10:15 AM EDT Office Visit [facility] [address] [place] [address] Luis Olivares MD [address] [address] documented as of this encounter Visit Diagnoses Diagnosis Diabetes mellitus type 2 without retinopathy (CMS/HCC)- Primary Floppy lid syndrome Blepharoconjunctivitis of left eye, unspecified blepharoconjunctivitis type Pseudophakia of both eyes Lens replaced by other means documented in this encounter Additional Health Concerns Assessment Noted Time PHQ-9 Depression Total Score: 12 023 12:53 PM EDT A fall risk assessment has been complete d for the patient 02/08/2024 3:04 PM EDT A Body Mass Index follow-up plan has been documented for the patient 03/30/2024 2:46 PM EDT documented as of this encounter Care Teams Dealership General Manager Relationship Specialty Start Date End Date Heladio Palm MD [address] [place] [address] PCP - General Internal Medicine 05/02/22 documented as of this encounter
--- OUTSIDE RECORDS SUMMARY | 2024-08-02 15:12 | XMS_ITS | Encounter Summary ---
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 TAKE 1 TABLET [...] 08/08/2024 1:00 PM EST Office Visit [facility] Nephrology, Bone & Mineral Metabolism [address], [address] [place] [address] Diana Ahumada MD [address] [place] [address] 12/30/2024 10:15 AM EDT Office Visit [facility] [address] [place] [address] Luis Olivares MD [address] [place] [address] documented as of this encounter Procedures Procedure Name Priority Date/Time Associated Diagnosis Comments ND PULMONARY STRESS TESTING Routine 06/12/2023 11:25 AM EDT Shortness of breath documented in this encounter Results * Six-Minute Walk Test (06/12/2023 11:25 AM EDT) 6MWD TEST TESTING 155.00 m 06/12/2023 11:21 AM EDT VYAIRE PFT DIST. FINAL TEST 5.00 m 06/12/2023 11:21 AM EDT VYAIRE PFT LAPS TEST 5.00 06/12/2023 11:21 AM EDT VYAIRE PFT PAUSES TEST 3.00 06/12/2023 11:21 AM EDT VYAIRE PFT PAUSE TEST 94.00 sec 06/12/2023 11:21 AM EDT VYAIRE PFT DURATION TEST 6.00 min 06/12/2023 11:21 AM EDT VYAIRE PFT TNA6ZME TEST 88.00 % 06/12/2023 11:21 AM EDT VYAIRE PFT XAI6OXG TEST 93.00 % 06/12/2023 11:21 AM EDT VYAIRE PFT [id number] TEST RECOVERY 90.00 % 06/12/2023 11:21 AM EDT VYAIRE PFT MEAN SPO2 TEST 92.00 % 06/12/2023 11:21 AM EDT VYAIRE PFT MEAN SPO2 TEST 93.00 % 06/12/2023 11:21 AM EDT VYAIRE PFT MEAN SPO2 TEST RECOVERY 92.00 % 06/12/2023 11:21 AM EDT VYAIRE PFT TI88 TEST 0.00 min 06/12/2023 11:21 AM EDT VYAIRE PFT TI88 TEST 0.00 min 06/12/2023 11:21 AM EDT VYAIRE PFT TI88 TEST RECOVERY 0.00 min 06/12/2023 11:21 AM EDT VYAIRE PFT HRMAX TEST 113.00 BPM 06/12/2023 11:21 AM EDT VYAIRE PFT HRMAX TEST 85.00 BPM 06/12/2023 11:21 AM EDT VYAIRE PFT HRMAX TEST RECOVERY 111.00 BPM 06/12/2023 11:21 AM EDT VYAIRE PFT LAP DIST TEST 30.00 m 06/12/2023 11:21 AM EDT VYAIRE PFT DYSPNEA TEST 3.00 06/12/2023 11:21 AM EDT VYAIRE PFT DYSPNEA TEST 5.00 06/12/2023 11:21 AM EDT VYAIRE PFT EXERTION TEST 5.00 06/12/2023 11:21 AM EDT VYAIRE PFT EXERTION TEST 4.00 06/12/2023 11:21 AM EDT VYAIRE PFT Resting SPO2 94.00 % 06/12/2023 11:21 AM EDT VYAIRE PFT SPO2 TEST 94.00 % 06/12/2023 11:21 AM EDT VYAIRE PFT HR TEST 81.00 BPM 06/12/2023 11:21 AM EDT VYAIRE PFT HR TEST 111.00 BPM 06/12/2023 11:21 AM EDT VYAIRE PFT Anatomical Region Laterality Modality PFT 06/12/2023 10:5 4 AM EDT Narrative 06/13/2023 11:03 AM EDT Six-Minute Walk Test Six minute walk test was completed on room air according to ATS standards. Baseline oxygen saturation was 94% on on room air. There was no desaturation with submaximal exercise. Lowest oxygen saturation with exercise was 88%. Jose score for dyspnea was 3 at baseline and 5 with exercise. 6MWD was 155 m which was 50% predicted. Previous 6MWD on 02/04/17 was 291 m. Sammie GORDON PFT ORDERABLES Final Result documented in this encounter Visit Diagnoses Diagnosis Shortness of breath documented in this encounter Additional Health Concerns Assessment Noted Time PHQ-9 Depression Total Score: 12 023 12:53 PM EDT A fall risk assessment has been complete d for the patient 06/12/2023 12:56 PM EDT A Body Mass Index follow-up plan has been documented for the patient 06/12/2023 1:57 PM EDT documented as of this encounter Care Teams Director Of Convention Services Relationship Specialty Start Date End Date Heladio Palm MD [address] [place] [address] PCP - General Internal Medicine 05/02/22 documented as of this encounter
--- OUTSIDE RECORDS SUMMARY | 2024-08-02 15:12 | XMS_ITS | Encounter Summary ---
Author Organization [facility] Address [address] [place] [address] Care Team Providers Care Double Needle Operator Lockstitch Name Role Phone Heladio Palm MD Primary Care Provider [phone] Reason for Visit * Reason Onset Date Comments HCN Status Update Call #1 11/24/2023 Encounter Details Date Type Department Care Team ([facility] st Contact Info) Description 11/24/2023 Telephone [facility]phrology, Bone [facility] Mineral Metabolism [address] [facility], [address] [place] [phone] Alejandra Camacho MD [address] [place] [address] HCN Status Update Call #1 Social History Tobacco Use Types Packs/Day Years [...] encounter Miscellaneous Notes * Telephone Encounter - Lidia Sanchez LPN - 11/24/2023 4:03 PM EDT Called patient to get more information on symptoms she is experiencing and if she has a local lab to use for a urine culture. Left voicemail to call this feature writer on direct line. * Telephone Encounter - Karina Duvall - 11/24/2023 4:02 PM EDT Patient Phone Message Reason for Call: Pt called back checking on the status of her previous message. She said she is having pain in her back and side. Best contact number and optimal time of day to reach caller: [phone] Note: Please do not reply to this message. Follow-up communication and further actions as a result of this message need to be communicated with the patient directly, if the patient is not active onMyChart. If the patient is active on MyChart, they will receive notification of the communication/outcome via MyChart. * Telephone Encounter - Tonia Jade - 11/24/2023 1:47 PM EDT Patient Phone Message Reason for Call: Patient states she feels she has a UTI and asking for a Rx to be sent to her pharmacy? Best contact number and optimal time of day to reach caller: [phone] Note: Please do not reply to this [...] Description 08/08/2024 1:00 PM EST Office Visit [facility] Nephrology, Bone & Mineral Metabolism [address] [facility], [address] [place] [phone] Diana Ahumada MD [address] [place] [address] 12/30/2024 10:15 AM EDT Office Visit [facility] [address] [place] [address] Luis Olivares MD [address] [place] [address] Scheduled Orders Name Type Priority Associated Diagnoses Orde r Schedule Urine culture Microbiology Routine Acute cystitis without hematuria Expected: 11/24/2023 (Approximate), Expires: 05/26/2025 documented as of this encounter Visit Diagnoses Diagnosis Acute cystitis without hematuria- Primary documented in this encounter Additional Health Concerns Assessment Noted Time PHQ-9 Depression Total Score: 12 023 12:53 PM EDT A fall risk assessment has been complete d for the patient 11/23/2023 2:56 PM EDT A Body Mass Index follow-up plan has been documented for the patient 12/03/2023 9:49 PM EDT documented as of this encounter Care Teams Double Needle Operator Lockstitch Relationship Specialty Start Date End Date Heladio Palm MD [address] [place] [address] PCP - General Internal Medicine 05/02/22 documented as of this encounter
--- OUTSIDE RECORDS SUMMARY | 2024-08-02 15:12 | XMS_ITS | Encounter Summary ---
Author Organization [facility] Address [address] [place] [address] Care Team Providers Care Slate Trimmer Name Role Phone Heladio Palm MD Primary Care Provider [phone] Encounter Details Date Type Department Care Team (Latest Contact Info) Description 11/18/2023 Travel Social History Tobacco Use Types Packs/Day [...] Description 08/08/2024 1:00 PM EST Office Visit [facility] Nephrology, Bone & Mineral Metabolism [address] [facility] [address] [facility], [address] [place] [address] Diana Ahumada MD [address] [place] [address] 12/30/2024 10:15 AM EDT Office Visit [facility] [address] [place] [address] Luis Olivares MD [address] [place] [address] documented as of this encounter [...] documented as of this encounter Care Teams Slate Trimmer Relationship Specialty Start Date End Date Heladio Palm MD [address] [place] [address] PCP - General Internal Medicine 05/02/22 documented as of this encounter
--- OUTSIDE RECORDS SUMMARY | 2024-08-02 15:12 | XMS_ITS | Encounter Summary ---
Author Organization [facility] Address [address] [place] [address] Care Team Providers Care Client Engagement Specialist Name Role Phone Heladio Palm MD Primary Care Provider [phone] Encounter Details Date Type Department Care Team ([facility] st Contact Info) Description 08/01/2024 Telephone [facility]rology, Bone & Mineral Metabolism [address] [facility], [address] [place] [address] Lashonda William, STUDENT RECORDS COORDINATOR GS - 7 MAIN MEDICAL-SURGICAL Social History [...] * Telephone Encounter - Lashonda William - 08/01/2024 12:33 PM EST 08/01/24 called pt and faxed [facility] [phone] per pt. documented in this encounter Plan of Treatment Upcoming Encounters Date Type Department Care Team (Late st Contact Info) Description 08/08/2024 1:00 PM EST Office Visit [email or web address]phrology, Bone & Mineral Metabolism [address] [facility], [address] [place] [address] Diana Ahumada MD [address] [place] [address] 12/30/2024 10:15 AM EDT Office Visit [facility] [address] [place] [address] Luis Olivares MD [address] [place] [address] documented as of this encounter [...] documented as of this encounter Care Teams Client Engagement Specialist Relationship Specialty Start Date End Date Heladio Palm MD [address] [place] [address] PCP - General Internal Medicine 05/02/22 documented as of this encounter
--- OUTSIDE RECORDS SUMMARY | 2024-08-02 15:12 | XMS_ITS | Encounter Summary ---
Author Organization [facility] Address [address] [place], [place] [id number] Care Team Providers Care Lightout Examiner Name Role Phone Heladio Palm MD Primary Care Provider [phone] Reason for Visit * Reason Onset Date Comments HCN - Patient Message 11/16/2023 Encounter Details Date Type Department Care Team (Late st Contact Info) Description 11/16/2023 [facility] [address] [place] [address] Luis Olivares MD [address] [address] HCN - Patient Message Social History Tobacco Use Types Packs/Day [...] encounter Miscellaneous Notes * Telephone Encounter - Pauly Santoro - 11/18/2023 12:21 PM EDT Clinical Concern/Question Reason for Call: Patient returning triage's call Best contact number: [phone] (home) Optimal time of day to reach caller: ANYTIME Additional comments/information from caller: Note: Please do not reply to this message. Follow-up communication and further actions as a result of this message need to be communicated with the patient directly, if the patient is not active onMyChart. If the patient is active on MyChart, they will receive notification of the communication/outcome via MyChart. * Telephone Encounter - Heladio Perry - 11/16/2023 3:22 PM EDT Triage Call #2 11/16/2023 3:22 PM Called x2. Left VM req CB. * Telephone Encounter - Pauly Santoro - 11/16/2023 3:06 PM EDT Clinical Concern/Question Reason for Call: Patient returning call Best contact number: [phone] (home) Optimal time of day to reach caller: ANYTIME Additional comments/information from caller: Note: Please do not reply to this message. Follow-up communication and further actions as a result of this message need to be communicated with the patient directly, if the patient is not active onMyChart. If the patient is active on MyChart, they will receive notification of the communication/outcome via MyChart. * Telephone Encounter - Heladio Perry - 11/16/2023 2:39 PM EDT Triage Call #1 11/16/2023 2:39 PM Last appt with Dr. Olivares 05/02/22 for conjunctivitis, T2DM, & pseudophakia. No-showed 05/20/23 appt. Left VM req CB. * Telephone Encounter - Yvan Pauly Jerrod - 11/16/2023 2:27 PM EDT Same Day Appt/Overbook Request Reason for Call: Elise patient requesting to be seen for issues with left eye, seeing floaters, difficulty focusing and inflammation. Best contact number: [phone] (home) Optimal time of day to reach caller: ANYTIME Additional comments/information from caller: Note: Please do not reply to this message. Follow-up communication and further actions as a result of this message need to be communicated with the patient directly, if the patient is not active onMyChart. If the patient is active on MyChart, they will receive notification of the communication/outcome via [employer]. documented in this encounter Plan of Treatment Upcoming Encounters Date Type Department Care Team (Late st Contact Info) Description 08/08/2024 1:00 PM EST Office Visit [facility] Nephrology, Bone & Mineral Metabolism [address] [facility], [address] [place] [address] Diana Ahumada MD [address] [place], [place] [id number] 12/30/2024 10:15 AM EDT Office Visit [facility] [address] [place] [address] Luis Olivares MD [address] [address] documented as of this encounter [...] documented as of this encounter Care Teams Lightout Examiner Relationship Specialty Start Date End Date Heladio Palm MD [address] [place] [address] PCP - General Internal Medicine 05/02/22 documented as of this encounter
--- OUTSIDE RECORDS SUMMARY | 2024-08-02 15:12 | XMS_ITS | Encounter Summary ---
Author Organization [facility] Address [address] [place] [address] Care Team Providers Care Department Coordinator Name Role Phone Heladio Palm MD Primary Care Provider [phone] Encounter Details Date Type Department Care Team (Latest Contact Info) Description 06/12/2023 Travel Social History Tobacco Use Types Packs/Day [...] Description 08/08/2024 1:00 PM EST Office Visit [facility] Nephrology, Bone & Mineral Metabolism [address] [facility], [address] [place] [address] Diana Ahumada MD [address] [place] [address] 12/30/2024 10:15 AM EDT Office Visit [facility] [address] [facility] [place] [address] Luis Olivares MD [address] [place] [address] documented as of this encounter [...] documented as of this encounter Care Teams Department Coordinator Relationship Specialty Start Date End Date Heladio Palm MD [address] [place] [address] PCP - General Internal Medicine 05/02/22 documented as of this encounter
--- OUTSIDE RECORDS SUMMARY | 2024-08-02 15:12 | XMS_ITS | Encounter Summary ---
Author Organization [facility] Address [address] [place] [address] Care Team Providers Care Etymology Professor Name Role Phone Heladio Palm MD Primary Care Provider [phone] Reason for Referral * Imaging (Routine) - Closed Specialty Diagnoses / Procedures Referred By Esequiel hall Referred To Contact Radiology Diagnoses Elevated serum creatinine Procedures US Renal Complete Alejandra Camacho MD [address] [address] Phone: tel: fax: Referral ID Status Reason Start Date Expiration Date Visits Re quested Visits Authorized [id number] Closed 11/23/2023 05/24/2025 1 1 Reason for Visit * Reason Comments Consult * Consultation (Routine) - Closed Specialty Diagnoses / Procedures Referred By Esequiel hall Referred To Contact Nephrology Diagnoses Elevated serum creatinine Sammie East, PA [address] [facility] [address] [place] [address] Phone: tel: fax: [facility] [place] Nephrology, Bone & Mineral Metabolism [address], [address] [place] [address] Phone: tel: fax: Referral ID Status Reason Start Date Expiration Date V isits Requested Visits Authorized [id number] Closed Specialty Services Required 05/12/2023 11/10/2024 1 1 Encounter Details Date Type Department Care Team (Late st Contact Info) Description 11/23/2023 3:00 PM EDT Consult Professional [facility] Nephrology, Bone & Mineral Metabolism [address], [address] [place] [address] Alejandra Camacho MD [address] [place] [address] Elevated serum creatinine (Primary Dx); Type 2 diabetes mellitus with other specified complication, without long-term current use of insulin ([facility]); Mixed hyperlipidemia; Essential hypertension; Coronary artery disease involving quechan coronary artery of quechan heart without angina pectoris; Obstructive sleep apnea Social History Tobacco Use Types Packs/Day Years [...] Sign Reading Time Taken Comments Blood Pressure 118/80 11/23/2023 3:01 PM EDT Pulse 75 11/23/2023 2:43 PM EDT Temperature 36.6 ??C (97.9 ??F) 11/23/2023 2:43 PM ED T Respiratory Rate 18 11/23/2023 2:43 PM EDT Oxygen Saturation 99% 11/23/2023 2:43 PM EDT Inhaled Oxygen Concentration - - Weight 109 kg (240 lb 4 oz) 11/23/2023 2:43 PM E DT Height 154.9 cm (5' 1 ) 11/23/2023 2:43 PM EDT Body Mass Index 45.39 11/23/2023 2:43 PM EDT documented in this encounter Miscellaneous Notes * Progress Notes - Diana Ahumada MD - 11/23/2023 3:00 PM EDT [facility] Consult Note Patient: Mirtha Brarios Date of Consult: 11/23/2023 Time of Consult: 12:34 PM Referring Provider: Sammie East [address] / [facility] [address] Reason for Consult: CKD HPI: Mrs. Mirtha Barrios is a 73 y.o. female with a history of CAD post stent in LAD, Afib, left ventricular hypertrophy, chronic fatigue, asthma, HTN, DELL on BiPAP, history of IgA Vasculitis (2007) who presents for consultation regarding her CKD. In 2007 patient had IgA vasculitis and she reports itdid affect her kidneys. At that time and the following 2 years she was followed by a medicare nurse, she was treated with high-dose steroids for her IgA vasculitis. She reports that occasionally she will have the classic IgA rash, ???small amount?? and that it goes away on its own. 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 No history of kidney stones, does report having 3-4 urinary tract infectionsper year. She had labs drawn in April of 2023 and had a serum creatinine of 2.0, per chart review her baseline kidney function had been 0.6-0.7. She reports her PCP has been following her kidney function and has not reported it as being decreased. During the time when she had her labs drawn that showed a serum creatinine of 2.0 she had been recently started on Farxiga, and wonders if this affected her function. She does endorse not being very good at drinking water and staying hydrated. For her hypertension she is currently on Coreg 25 twice daily, triamterene-HCTZ, losartan 50 mg daily. Blood pressure is well-controlled in clinic today at 118/80, patient takes BP at home and usually around this. She also has diabetes, she was diagnosed approximately 8 years ago. She denies having retinopathy but does have neuropathy and has had it for about 3 years. For her diabetes she takes metformin, she was on Farxiga for approximately 6 months but stopped the beginning of September due to making her urine ???sticky?? . She has never had a kidney biopsy. ROS: ROS was obtained in 14 points and is negative except otherwise as noted in the HPI. History: Past 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: Diagnosis Date Allergic purpura (CMS/HCC) Henoch-Schonlein purpura 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 Mukherjee's esophagus Hypothyroidism, unspecified Subclinical hypothyroidism Other diseases of pharynx Throat irritation Panic disorder (episodic paroxysmal anxiety) Panic disorder without agoraphobia Personal history of nephrotic syndrome History of primary iga nephropathy Personal history of other diseases of the digestive system History of acute cholecystitis Personal history of other diseases of the musculoskeletal system and connective tissue History of osteoarthritis Personal history of other diseases of the respiratory system History of chronic bronchitis Patient Active Problem List Diagnosis Acute on chronic respiratory failure with hypoxia and hypercapnia (CMS/HCC) Atrial fibrillation (CMS/HCC) Allergic rhinitis, seasonal Chronic GERD CAD (coronary artery disease) Chronic hypercapnic respiratory failure (CMS/HCC) Depression with anxiety Diabetes mellitus type 2, uncontrolled Essential hypertension Hyperlipidemia Asthma with acute exacerbation Incontinence Laryngeal spasm Left ventricular hypertrophy Moderate persistent asthma without complication Super obesity Neuropathy Nonalcoholic steatohepatitis Obesity hypoventilation syndrome (CMS/HCC) Obstructive sleep apnea Seasonal and perennial allergic rhinitis Subclinical hypothyroidism Systolic CHF, chronic (CMS/HCC) Type 2 diabetes mellitus (CMS/HCC) Vertigo Past Surgical History: Procedure Laterality Date BLADDER SURGERY N/A Bladder Surgery from [facility] CATARACT EXTRACTION N/A Cataract Extraction from [facility] CHOLECYSTECTOMY N/A Cholecystectomy from [facility] HYSTERECTOMY N/A Hysterectomy from [facility] OTHER SURGICAL HISTORY N/A Biopsy Skin from [facility] TOTAL ABDOMINAL HYSTERECTOMY N/A Total Abdominal Hysterectomy from [facility] Family History Problem Relation Name Age of Onset Alzheimer's disease Mother Conversions - Other Mother Stroke Of The Left Anterior Cerebral Artery Heart disease Father Conversions - Other Father Myocardial Infarction Arrhythmias Other (lung mass) Father Social History Socioeconomic History Marital status: Spouse name: Not on file Number of children: Not on file Years of education: Not on file Highest education level: Not on file Occupational History Not on file Tobacco Use Smoking status: Former Packs/day: 1.00 Years: 7.00 Additional pack years: 0.00 Total pack years: 7.00 Types: Cigarettes Quit date: 09/07/1999 Years since quittin.2 Passive exposure: Past Smokeless tobacco: Never Vaping Use Vaping Use: Never used Substance and Sexual Activity Alcohol use: Not Currently Drug use: Not Currently Comment: Drug use: Drug use Sexual activity: Defer Other Topics Concern Not on file Social History Narrative Being 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 Sexually Active Marital Status: Social Determinants of Health Financial Resource Strain: Not on file Food Insecurity: Not on file Transportation Needs: Not on file Physical Activity: Not on file Stress: Not on file Social Connections: Not on file Intimate Partner Violence: Not on file Housing Stability: Not on file Allergies Allergen Reactions Codeine Anaphylaxis, Nausea, Unknown - Patient states they do not know rxn details and Other - please document in the comment field Iv Contrast Anaphylaxis and Unknown - Patient states they do not know rxn details Per pt, she has strong sensitivity to CT contrast. per pt, reaction includes numbness and tingling fo lips and tongue. Penicillins Other - please document in the comment field, Anaphylaxis and Unknown - Patient states they do not know rxn details Per patient anaphylaxis, also started the PCN skin test and it had to be stopped at stage 2 Per patient anaphylaxis, also started the PCN skin test and it had to be stopped at stage 2 Has tolerated cephalexin and ceftriaxone 09/2019 Sulfa Drugs Unknown - Patient states they do not know rxn details Numb tongue, dizzy, hemorrhagic circular skin reaction Sulfamethoxazole-Trimethoprim Other - please document in the comment field per patient's daughter reaction was like a burn marking on the patient's hip Recurrent burn of skin on hip when taking med, hemorrhagic circular skin reaction Ciprofloxacin Unknown - Patient states they do not know rxn details Metformin Other - please document in the comment field Chronic diarrhea Rivaroxaban Other - please document in the comment field caused spontaneous bleed Medications: Home Medications: Current Outpatient Medications: atorvastatin (Lipitor) 80 MG tablet, TAKE 1 [...] (one) time each day., Disp: , Rfl: gabapentin (Neurontin) 300 MG capsule, TAKE 1 CAPSULE BY MOUTH TWICE A DAY FOR NEUROPATHY SYMPTOMS,Disp: , Rfl: levothyroxine (Synthroid, Levoxyl) 100 MCG [...] (one) time each day., Disp: , Rfl: metFORMIN (Glucophage) 500 MG tablet, Take 1 tablet (500 mg) by mouth 2 (two) times a day with meals., Disp: , Rfl: mupirocin (Bactroban) 2 % ointment, , Disp: , Rfl: pantoprazole (Protonix) 40 MG EC tablet, 1 (one) time each day at the same time., Disp: , Rfl: triamterene-hydroCHLOROthiazide (Dyazide) 37.5-25 MG capsule, Take 1 capsule by mouth 3 (three) times a day. FOR 90 DAYS, Disp: , Rfl: venlafaxine (Effoxor) 100 MG tablet, TAKE 1 TABLET BY MOUTH TWICE A DAY FOR 90 DAYS, Disp: , Rfl: Zinc Sulfate 140 (50 Zn) MG tablet, 1 (one) time each day at the same time., Disp: , Rfl: Physical Exam: Visit Vitals Smoking Status Former Gen: Sitting up in chair; awake, alert HEENT: MMM, NC/AT Neck: Supple CV: Audible S1, S2, no m/r/g appreciated Pulm: Clear to auscultation, no increased work of breathing on room air Abd: Soft, non-distended Extremities: No LE edema Skin: No rashes noted on observed skin Neuro: Awake and alert. Non focal, appropriate mood Laboratory: Renal Panel: Lab Results Component Value Date NA 139 05/06/2023 K 4.2 05/06/2023 CL 98 05/06/2023 CO2 25 05/06/2023 BUN 37 (H) 05/06/2023 CA 8.8 (L) 12/27/2019 PHOS 3.4 12/05/2019 MBD: Lab Results Component Value Date PTH 36 05/27/2016 CALCIUM 9.7 05/06/2023 CAION 5.3 (H) 11/27/2019 PHOS 3.4 12/05/2019 CBC: Lab Results Component Value Date WBC 11.34 (H) 05/06/2023 RBC 4.51 05/06/2023 HGB 14.0 05/06/2023 HCT 41.8 05/06/2023 PLT 257 05/06/2023 MCV 93 05/06/2023 MCH 31.0 05/06/2023 MCHC 33.5 05/06/2023 RDW 13.0 05/06/2023 NRBC 0.0 05/06/2023 Iron studies: Lab Results Component Value Date TIBC 256 01/11/2014 IMPRESSION:: Mrs. Mirtha Barrios is a 73 y.o. female with a history of CAD post stent in LAD, Afib, left ventricular hypertrophy, chronic fatigue, asthma, HTN, DELL on BiPAP, history of IgA Vasculitis (2007) who presents for consultation regarding her CKD. Assessment: CRISTINE vs CKD w/ Hx of IgA Vasculitis - Cr 2.0 04/2023, previously Cr 0.6-0.7 - Etiology: Likely multifactorial to include IgA vasculitis, hx of CRISTINE, partial embolization of L renal artery, HTN and DKD - No documented hx of proteinuria T2DM -HgB A1C 6.8% in 2019 - Currently on Metformin, was on Farxiga but stopped - No retinopathy (see's optho regularly), does [...] and tolerating well DELL - Uses BiPAP Morbid Obesity - BMI 45 Plan: - Will obtain RFP, CBC, PTH, VitD25, uACR, uPCR, U/a and renal US. - Depending on results and degree of kidney dysfunction will dictate further workup (consider bx, immunologic) - Continue current BP medication, continue checking BP at home. Discussed proper use of wrist cuff - Will consider adding SGLT2i depending on degree of proteinuria - Counseled on importance of maintaining tight glycemic control and BP control - Counseled to avoid dehydration, NSAIDs - RTC in 2mo with repeat labs Diana Ahumada MD Nephrology/ Critical Care Medicine Fellow Cosigned by Alejandra Camacho MD at 12/03/2023 9:48 PM EDT Associated attestation - Alejandra Camacho MD - 12/03/2023 9:48 PM EDT I saw and evaluated the patient with the resident/fellow. I discussed the case with the resident/fellow and agree with the findings and plan as documented. documented in this encounter Plan of Treatment Upcoming Encounters Date Type Department Care Team (Late st Contact Info) Description 08/08/2024 1:00 PM EST Office Visit [facility] [place] Nephrology, Bone & Mineral Metabolism [address], [address] [place] [address] Diana Ahumada MD [address] [place], [place] [id number] 12/30/2024 10:15 AM EDT Office Visit [facility] [address] [place] [address] Luis Olivares MD [address] [address] Scheduled Orders Name Type Priority Associated Diagnoses Orde r Schedule Vitamin D 25 Hydroxy Lab Routine Elevated serum creatinine Expected: 11/23/2023 (Approximate), Expires: 05/25/2025 documented as of this encounter Results * US Renal Complete [...] kidney is normal in size and echogenicity [id number] cm. No hydronephrosis. No obvious calculi. No [...] Felipa Lantigua MD on 01/01/2024 6:59 PM Alejandra Camacho MD IMG US PROCEDURES Final Resu lt * PTH, intact (11/23/2023 3:53 PM EDT) PTH Intact Total 52 9 - 77 pg/mL 11/23/2023 6:24 PM EDT [facility] Blood Venous blood specimen / Unknown Venipuncture / Unknown 11/23/2023 3:53 PM EDT 11/23/2023 3:53 PM EDT Narrative [facility] - 11/23/2023 6:24 PM EDT Assay performed by immunoassay at the [facility]. Performed on [employer] chemiluminescent immunoassay, tractable to the World Health Organization's first international standard for PTH from the NIBS, Code 79/500. Results obtained from different test methods or kits cannot be used interchangeably. Alejandra Camacho MD LAB BLOOD ORDERABLES Final R esult [facility] [address] [place] [id number] * (ABNORMAL) CBC W/O Differential (11/23/2023 3:53 PM EDT) WBC Count 12.93(H) 3.70 - 10.30 10*3/uL LAB HEMATOLOGY METHOD 11/23/2023 5:22 PM EDT [facility] RBC Count 4.40 3.90 - 5.20 10*6/uL LAB HEMATOLOGY METHOD 11/23/2023 5:22 PM EDT [facility] HGB 13.7 11.2 - 15.7 g/dL LAB HEMATOLOGY METHOD 11/23/2023 5:22 PM EDT [facility] HCT 41.7 34.0 - 45.0 % LAB HEMATOLOGY METHOD 11/23/2023 5:22 PM EDT [facility] Platelet Count 289 155 - 369 10*3/uL LAB HEMATOLOGY METHOD 11/23/2023 5:22 PM EDT [facility] MCV 95 79 - 98 fL LAB HEMATOLOGY METHOD 11/23/2023 5:22 PM EDT [facility] MCH 31.1 26.0 - 32.0 pg LAB HEMATOLOGY METHOD 11/23/2023 5:22 PM EDT [facility] MCHC 32.9 30.7 - 35.5 g/dL LAB HEMATOLOGY METHOD 11/23/2023 5:22 PM EDT [facility] RDW 12.8 11.5 - 14.5 % LAB HEMATOLOGY METHOD 11/23/2023 5:22 PM EDT [facility] MPV 9.9 8.8 - 12.5 fL LAB HEMATOLOGY METHOD 11/23/2023 5:22 PM EDT [facility] nRBC 0.0 <=0.0 per 100 WBCs LAB HEMATOLOGY METHOD 11/23/2023 5:22 PM EDT [facility] Blood Venous blood specimen / Unknown Venipuncture / Unknown 11/23/2023 3:53 PM EDT 11/23/2023 3:53 PM EDT us Alejandra Camacho MD LAB BLOOD ORDERABLES Final R esult [facility] [address] [place] [address] * (ABNORMAL) Renal Function Panel, Plasma (11/23/2023 3:53 PM EDT) Glucose, Plasma 135(H) 74 - 99 mg/dL 11/23/2023 5:47 PM EDT [facility] BUN, Plasma 25(H) 8 - 23 mg/dL 11/23/2023 5:47 PM EDT [facility] Creatinine, Plasma 1.30(H) 0.60 - 1.10 mg/dL 11/23/2023 5:47 PM EDT [facility] BUN/Creatinine Ratio 19 11/23/2023 5:47 PM EDT [facility] Sodium, Plasma 138 136 - 145 mmol/L 11/23/2023 5:47 PM EDT [facility] Potassium, Plasma 4.1 3.7 - 4.8 mmol/L 11/23/2023 5:47 PM EDT [facility] Chloride, Plasma 100 97 - 107 mmol/L 11/23/2023 5:47 PM EDT [facility] CO2, Plasma 25 22 - 29 mmol/L 11/23/2023 5:47 PM EDT [facility] Anion Gap 13 6 - 16 mmol/L 11/23/2023 5:47 PM EDT [facility] Total Calcium, Plasma 10.1 8.9 - 10.2 mg/dL 11/23/2023 5:47 PM EDT [facility] Phosphorus, Plasma 3.2 2.5 - 4.5 mg/dL 11/23/2023 5:47 PM EDT [facility] Albumin, Plasma 4.1 3.5 - 5.2 g/dL 11/23/2023 5:47 PM EDT [facility] eGFRcr 43.2 mL/min/1.7 3m*2 11/23/2023 5:47 PM EDT [facility] Comment:Reported eGFRcr in m L/min/1.73m2 is based the CKD-EPI 2020 equation that does not use a race coefficient. Blood Venous blood specimen / Unknown Venipuncture / Unknown 11/23/2023 3:53 PM EDT 11/23/2023 3:53 PM EDT us Alejandra Camacho MD LAB BLOOD ORDERABLES Final R esult [facility] [address] [place] [id number] * Albumin-creatinine ratio, urine, random (11/23/2023 3:51 PM EDT) Microalbumin, Urine <1.2 <1.9 mg/dL 11/23/2023 6:12 PM EDT [facility] Creatinine, Urine 94 mg/dL 11/23/2023 6:12 PM EDT [facility] Albumin/Creati nine Ratio 11/23/2023 6:12 PM EDT [facility] Comment:Unable to calculate, at least one value is above or below the detection limit. Urine Urine specimen obtained by clean catch procedure / Unknown Non-blood Collection / Unknown 11/23/2023 3:51 PM EDT 11/23/2023 3:51 PM EDT us Alejandra Camacho MD LAB URINE ORDERABLES Final R [facility] Performing Organization Address [facility]/ZIP Co de Phone Number [facility] [address] [place] [address] * Protein, Random, Urine with Creatinine (11/23/2023 3:51 PM EDT) Protein, Urine 6 mg/dL 11/23/2023 5:55 PM EDT [facility] Creatinine, Urine 94 mg/dL 11/23/2023 5:55 PM EDT [facility] Protein/Creati nine Ratio 0.1 mg/mg Creat 11/23/2023 5:55 PM EDT [facility] Urine Urine specimen obtained by clean catch procedure / Unknown Non-blood Collection / Unknown 11/23/2023 3:51 PM EDT 11/23/2023 3:51 PM EDT Alejandra Camacho MD LAB URINE ORDERABLES Final R [facility] Performing Organization Address [facility] Co de Phone Number [facility] [address] [place] [address] * (ABNORMAL) Urinalysis with reflex microscopic (Culture NOT Included) (11/23/2023 3:51 PM EDT) Color, Urine Yellow LAB URINALYSIS - AUTOMATED METHOD 11/23/2023 5:58 PM EDT [facility] Clarity, Urine Cloudy LAB URINALYSIS - AUTOMATED METHOD 11/23/2023 5:58 PM EDT [facility] Spec Mission, Urine 1.017 <=1.005 to >=1.030 LAB URINALYSIS - AUTOMATED METHOD 11/23/2023 5:58 PM EDT [facility] pH, Urine 6.0 4.5 to 8 LAB URINALYSIS - AUTOMATED METHOD 11/23/2023 5:58 PM EDT [facility] Protein, Urine Negative Negative mg/dL LAB URINALYSIS - AUTOMATED METHOD 11/23/2023 5:58 PM EDT [facility] Glucose, Urine Negative Negative mg/dL LAB URINALYSIS - AUTOMATED METHOD 11/23/2023 5:58 PM EDT [facility] Ketones, Urine Negative Negative mg/dL LAB URINALYSIS - AUTOMATED METHOD 11/23/2023 5:58 PM EDT [facility] Blood, Urine Negative Negative LAB URINALYSIS - AUTOMATED METHOD 11/23/2023 5:58 PM EDT [facility] Bilirubin, Urine Negative Negative LAB URINALYSIS - AUTOMATED METHOD 11/23/2023 5:58 PM EDT [facility] Urobilinogen, Urine 0.2 0.2 to 1.0 mg/dL LAB URINALYSIS - AUTOMATED METHOD 11/23/2023 5:58 PM EDT [facility] Leukocytes, Urine Moderate(A) Negative LAB URINALYSIS - AUTOMATED METHOD 11/23/2023 5:58 PM EDT [facility] Comment:Previously prelim ve rified as Small on 11/23/2023 at 1723 EDT. Nitrite, Urine Negative Negative LAB URINALYSIS - AUTOMATED METHOD 11/23/2023 5:58 PM EDT [facility] RBC, Urine 1 0 to 3 /HPF 11/23/2023 5:58 PM EDT [facility] Comment:This result was prev iously suppressed from the chart. WBC, Urine 11 - 20(A) 0 to 5 /HPF 11/23/2023 5:58 PM EDT [facility] Comment:This result was prev iously suppressed from the chart. Squamous Epithelial Cells 6 - 10(A) 0 to 5 /HPF 11/23/2023 5:58 PM EDT [facility] Comment:This result was prev iously suppressed from the chart. Hyaline Casts 0 - 2 0 to 5 /LPF 11/23/2023 5:58 PM EDT [facility] Comment:This result was prev iously suppressed from the chart. Bacteria, Urine Present Negative 11/23/2023 5:58 PM EDT [facility] Comment:This result was prev iously suppressed from the chart. Amorphous Crystals Present Absent 11/23/2023 5:58 PM EDT [facility] Comment:This result was prev iously suppressed from the chart. Urine Urine specimen obtained by clean catch procedure / Unknown Non-blood Collection / Unknown 11/23/2023 3:51 PM EDT 11/23/2023 3:51 PM EDT Narrative [facility] - 11/23/2023 5:58 PM EDT Performed by manual method us Alejandra Camacho MD LAB URINE ORDERABLES Final R esult [facility] [address] [place] [address] documented in this encounter Visit Diagnoses Diagnosis Elevated serum creatinine- Primary Other nonspecific findings on examination of blood Type 2 diabetes mellitus with other specified complication, without long-term current use of insulin ([facility]) Mixed hyperlipidemia Essential hypertension Unspecified essential hypertension Coronary artery disease involving quechan coronary artery of quechan heart without angina pectoris Obstructive sleep apnea Obstructive sleep apnea (adult) (pediatric) Elevated serum creatinine Other nonspecific findings on [...] documented as of this encounter Care Teams Etymology Professor Relationship Specialty Start Date End Date Heladio Palm MD [address] [place] [address] PCP - General Internal Medicine 05/02/22 documented as of this encounter
--- OUTSIDE RECORDS SUMMARY | 2024-08-02 15:12 | XMS_ITS | Encounter Summary ---
Author Organization [facility] Address [address] [place] [address] Care Team Providers Care Store Director Name Role Phone Heladio Palm MD Primary Care Provider [phone] Encounter Details Date Type Department Care Team (Latest Contact Info) Description 08/02/2024 Travel Social History Tobacco Use Types Packs/Day [...] Description 08/08/2024 1:00 PM EST Office Visit [facility] Nephrology, Bone & Mineral Metabolism [address], [address] [place] [address] Diana Ahumada MD [address] [place] [address] 12/30/2024 10:15 AM EDT Office Visit [facility] [address] [place] [address] Luis Olivares MD [address] [place] [address] documented as of this encounter [...] documented as of this encounter Care Teams Store Director Relationship Specialty Start Date End Date Heladio Palm MD [address] [place] [address] PCP - General Internal Medicine 05/02/22 documented as of this encounter
--- OUTSIDE RECORDS SUMMARY | 2024-08-02 15:12 | XMS_ITS | Encounter Summary ---
Author Organization [facility] Address [address] [place] [id number] Care Team Providers Care Exercise Scientist Name Role Phone Heladio Palm MD Primary Care Provider [phone] Reason for Visit * Reason Comments Med Refill Encounter Details Date Type Department Care Team (Late st Contact Info) Description 05/05/2024 Refill [facility] [place] [address] [place] [address] Willow Fry PA [address] [place] [address] Coronary artery disease involving hamilton coronary artery of hamilton heart without angina pectoris Social History Tobacco [...] Miscellaneous Notes * Telephone Encounter - Sammie Tyson - 05/06/2024 7:49 AM EDT Pt needs an appt documented in this encounter Plan of Treatment Upcoming Encounters Date Type Department Care Team (Late st Contact Info) Description 08/08/2024 1:00 PM EST Office Visit [facility] Nephrology, Bone & Mineral Metabolism [address] [facility], [address] [place] [address] Diana Ahumada MD [address] [place] [address] 12/30/2024 10:15 AM EDT Office Visit [facility] [address] [place] [address] Luis Olivares MD [address] [facility] [address] [place] [address] documented as of this encounter Visit Diagnoses Diagnosis Coronary artery disease involving hamilton coronary artery of hamilton heart without angina pectoris documented in this encounter Additional Health Concerns Assessment Noted Time PHQ-9 Depression Total Score: 12 023 12:53 PM EDT A fall risk assessment has been complete d for the patient 02/08/2024 3:04 PM EDT A Body Mass Index follow-up plan has been documented for the patient 03/30/2024 2:46 PM EDT documented as of this encounter Care Teams Exercise Scientist Relationship Specialty Start Date End Date Heladio Palm MD [address] [place] [address] PCP - General Internal Medicine 05/02/22 documented as of this encounter
--- OUTSIDE RECORDS SUMMARY | 2024-08-02 15:12 | XMS_ITS | Encounter Summary ---
Author Organization [facility] Address [address] [place] [address] Care Team Providers Care Marketing Segment Manager Name Role Phone Heladio Palm MD Primary Care Provider [phone] Encounter Details Date Type Department Care Team (Latest Contact Info) Description 02/08/2024 Travel Social History Tobacco Use Types Packs/Day [...] Description 08/08/2024 1:00 PM EST Office Visit [facility] [place] Nephrology, Bone & Mineral Metabolism [address], [address] [place] [address] Diana Ahumada MD [address] [place] [address] 12/30/2024 10:15 AM EDT Office Visit [facility] [address] [facility] [place] [address] Luis Olivares MD [address] [place] [address] documented as of this encounter [...] documented as of this encounter Care Teams Marketing Segment Manager Relationship Specialty Start Date End Date Heladio Palm MD [address] [place] [address] PCP - General Internal Medicine 05/02/22 documented as of this encounter
--- OUTSIDE RECORDS SUMMARY | 2024-08-02 15:12 | XMS_ITS | Encounter Summary ---
Author Organization [facility] Address [address] [place] [address] Care Team Providers Care English Division Chair Name Role Phone Unavailable Primary Care Provider Unavailabl e Encounter Details Date Type Department Care Team (Late st Contact Info) Description 08/29/2008 Historical Mammograp hy Encounter [facility] HISTORICAL CONV [address] [place] [address] Interface, See Report Social History [...] Associated Diagnosis Comments MAMMO HISTORICAL RESULT Routine 08/29/2008 8:28 AM EST documented in this encounter Results * MAMMO HISTORICAL RESULT (08/29/2008 8:28 AM EST) Anatomical Region Laterality Modality Breast Mammography 08/29/2008 8:28 AM EST Narrative 08/29/2008 11:13 AM EST ?[facility] ? [address] ??[place], [place] [address] ? NAME: NAM LESTER ? : ??[birth year] ??MR#: [id number] ? LOC: ?? CO ? AGE: 58Y ?? Pt type: CO ?Exam Date: 08/29/08829 ? SEX: F ?? AN#:[id number] ?Ck-in#: [id number] ? SARAH,PRAVIN ? [address] [facility] [facility] ? [address] ? [place] ?[place] ?[address] ? Chk-in # ?? Order ?Exam ?[id number] ?? 0001 ? [id number] ??BC MAMM DIAG UNILAT DIG PNL*R ? Ord Diag: ABN MMG ? HISTORY: ?? The patient is 58 years old and returns for short term follow up of mammographic nodularity. ?? DIAGNOSTIC RIGHT DIGITAL MAMMOGRAM: ?? COMPARISON USED: 02/03/08. ?? TECHNICAL: ??Right CC and MLO views. ?? FINDINGS: ??Scattered densities are noted with patches of denser tissue. Again noted is the oval, circumscribed nodule central axis right breast at the junction of the anterior and middle thirds. ??This appears stable. Benign vascular calcifications are noted. ??No spiculated mass or suspicious cluster of calcifications are seen. ?? IMPRESSION: ??Stable mammographic nodularity on the right from January 2008. Recommend one year follow up bilateral mammogram in February 2009. ?? ICAD was utilized. ?? The results were given to the patient, during her visit, in a letter written in lay terminology. ?/READ BY/ AWILDA HERRING ?/Released By/ AWILDA HERRING ?Released By Date/Time: ??08/29/085 ?Car Inspector: ??JBW ? FINAL ? Page ??1 ? RADIOLOGY REPORT us See Report Interface IMG MAMMOGRAPHY ORDERABLES Final Result documented in this encounter Visit Diagnoses Not on filedocumented in this encounter
--- OUTSIDE RECORDS SUMMARY | 2024-08-02 15:12 | XMS_ITS | Encounter Summary ---
Author Organization [facility] Address [address] [place] [address] Care Team Providers Care Manager Acute Name Role Phone Heladio Palm MD Primary Care Provider [phone] Encounter Details Date Type Department Care Team (Latest Contact Info) Description 08/02/2023 Travel Social History Tobacco Use Types Packs/Day [...] Description 08/08/2024 1:00 PM EST Office Visit [facility] Nephrology, Bone & Mineral Metabolism [address] [facility], [address] [place] [address] Diana Ahumada MD [address] [place] [address] 12/30/2024 10:15 AM EDT Office Visit [facility] [address] [facility] [place] [address] Luis Olivares MD [address] [place] [address] documented as of this encounter [...] documented as of this encounter Care Teams Manager Acute Relationship Specialty Start Date End Date Heladio Palm MD [address] [place] [address] PCP - General Internal Medicine 05/02/22 documented as of this encounter
--- OUTSIDE RECORDS SUMMARY | 2024-08-02 15:12 | XMS_ITS | Encounter Summary ---
Author Organization [facility] Address [address] [place] [address] Care Team Providers Care Bomb Squad Officer Name Role Phone Heladio Palm MD Primary Care Provider [phone] Encounter Details Date Type Department Care Team (Latest Contact Info) Description 01/01/2024 Travel Social History Tobacco Use Types Packs/Day [...] Nephrology, Bone & Mineral Metabolism [address], [address] [place] [address] Diana Ahumada MD [address] [place] [address] 12/30/2024 10:15 AM EDT Office Visit [facility] [address] [place] [address] Luis Olivares MD [address] [place] [address] documented as of this encounter [...] documented as of this encounter Care Teams Bomb Squad Officer Relationship Specialty Start Date End Date Heladio Palm MD [address] [place] [address] PCP - General Internal Medicine 05/02/22 documented as of this encounter
--- OUTSIDE RECORDS SUMMARY | 2024-08-02 15:12 | XMS_ITS | Encounter Summary ---
Author Organization [facility] Address [address] [place] [address] Care Team Providers Care Salad Maker Name Role Phone Heladio Palm MD Primary Care Provider [phone] Encounter Details Date Type Department Care Team (Latest Contact Info) Description 03/29/2024 Travel Social History Tobacco Use Types Packs/Day [...] PM EST Office Visit [facility] Nephrology, Bone & Mineral Metabolism [address] [facility], [address] [place] [address] Diana Ahumada MD [address] [place] [address] 12/30/2024 10:15 AM EDT Office Visit [facility] [address] [place] [address] Luis Olivares MD [address] [place] [address] documented as of this encounter [...] documented as of this encounter Care Teams Salad Maker Relationship Specialty Start Date End Date Heladio Palm MD [address] [place] [address] PCP - General Internal Medicine 05/02/22 documented as of this encounter
--- OUTSIDE RECORDS SUMMARY | 2024-08-02 15:13 | XMS_ITS | Encounter Summary ---
Author Organization [facility] Address [address] [place] [address] Care Team Providers Care Vocational Coordinator Name Role Phone Heladio Palm MD Primary Care Provider [phone] Reason for Referral * Consultation (Routine) - Authorized Specialty Diagnoses / Procedures Referred By Esequiel hall Referred To Contact Sleep Medicine Diagnoses DELL (obstructive sleep apnea) Sammie East PA [address] [facility] [address] [place] [address] Phone: tel: fax: [facility] [address] [place] [address] Phone: tel: Referral ID Status Reason Start Date Expiration Date Visits Requested Visits Authorized [id number] Authorized Specialty Services Required 05/06/2023 11/04/2024 1 1 Scheduling Instructions History of DELL, wears BiPAP at night, has not had settings evaluated in several years. Reason for Visit * Reason Comments Shortness of Breath * Consultation (Routine) - Closed Specialty Diagnoses / Procedures Referred By Esequiel hall Referred To Contact Pulmonary Disease / Pulmonology Diagnoses Coronary artery disease involving grayling coronary artery of grayling heart without angina pectoris Chest pain, unspecified type Shortness of breath Paroxysmal atrial fibrillation (CMS/HCC) Mixed hyperlipidemia Left ventricular hypertrophy Chronic fatigue Say Arellano MD [address] [place] [address] Phone: tel: fax: [facility] [address] [place] [address] Phone: tel: fax: Referral ID Status Reason Start Date Expiration Date V isits Requested Visits Authorized [id number] Closed Specialty Services Required 03/26/2023 09/24/2024 1 1 Encounter Details Date Type Department Care Team (Late st Contact Info) Description 05/06/2023 1:[address] [facility] [address] [place] [address] Sammie East PA [address] [place] [address] DELL (obstructive sleep apnea) (Primary Dx); Coronary artery disease involving grayling coronary artery of grayling heart without angina pectoris; Chest pain, unspecified type; Shortness of breath; Paroxysmal atrial fibrillation (CMS/HCC); Mixed hyperlipidemia; Left ventricular hypertrophy; Chronic fatigue; Body mass index (BMI) 45.0-49.9, adult (CMS/HCC); Hypothyroidism, unspecified type Social History Tobacco Use Types Packs/Day Years Used Date Smoking Tobacco: Former Cigarettes 1 7 0 09/07/1992 - 09/07/1999 Passive Smoke Exposure: Past Smokeless Tobacco: Never Tobacco Cessation:Counseling Given: Not Answered Alcohol Use Standard Drinks/Week Comments Not Currently 0 (1 standard drink = 0.6 oz pur e alcohol) PHQ-2 Answer Date Recorded Patient Health Questionnaire-2 Score 4 05/06/2023 Comments Unknown Sex and Gender Information Value Date Recorded Sex Assigned at Not on file Legal Sex Female 8:26 PM EDT Gender Identity Not on file Sexual Orientation Not on file documented as of this encounter Last Filed Vital Signs Vital Sign Reading Time Taken Comments Blood Pressure 97/66 05/06/2023 1:11 PM EDT Pulse 88 05/06/2023 1:11 PM EDT Temperature 36.8 ??C (98.3 ??F) 05/06/2023 1:11 PM ED T Respiratory Rate - - Oxygen Saturation 95% 05/06/2023 1:11 PM EDT ra Inhaled Oxygen Concentration - - Weight 117 kg (257 lb 11.5 oz) 05/06/2023 1:11 P M EDT Height 157.5 cm (5' 2 ) 05/06/2023 1:11 PM EDT Body Mass Index 47.14 05/06/2023 1:11 PM EDT documented in this encounter Miscellaneous Notes * Result Encounter Note - Sammie East PA - 05/06/2023 1:30 PM EDT CMP glu 211, Cr 2.00, otherwise normal CBC with diff WBC 11.34, Hgb 14, Eos 370 TSH WNL VitaminD 39.8 *sent message via [employer]. If she is not established with a marine surveyor, I will put in a referral. * Progress Notes - Sammie East PA - 05/06/2023 1:30 PM EDT Subjective Mirtha Barrios is a 73 y.o. female who presents for new patient visit/establish care with PM for CAD post stent in LAD, Afib, left ventricular hypertrophy, chronic fatigue, HTN, DELL on BiPAP, history of Henoch-Schonlein purpura (2007) who presents as a new patient with a chief complaint of dyspnea. Chief Complaint Patient presents with Shortness of Breath [address] [facility] [place] [address] Referring Provider: Say Arellano MD Besson, Stephen A, MD Consult reason: Shortness of breath Shortness of Breath Pertinent negatives include no chest pain, fever, leg swelling, rash, vomiting or wheezing. The patient was born full term and healthy. There is no prior history of lung disease. The patient had a healthy childhood and young adulthood. I can't breathe. This all started in 2019, rushed to ED in respiratory failure, CO2 extremely elevated, she was intubated, treated her with BiPAP. She has continued on a BiPAP with 1lpm of oxygen at night ever since. Reports she then had LAD stented in 2021 and dyspnea has persisted. Denies recent hospitalization/illness. Denies dyspnea at rest. She reports she can walk from her bathroom to bedroom and be short of breath. Endorses dyspnea with ADLs, she has to take frequent rest breaks. Denies cough, sputum production, wheezing, fever/chills, chest tightness, hemoptysis, unintentional weight loss, night sweats. Symbicort inhaler that she uses 3 days, 2 puffs twice daily. She states she doesn't feel much benefit from this. She states she was seen by a design studio consultant in the community 6 months ago who told her she had asthma as a child. Endorses significant seasonal allergies, cats, horses, dust mites. Takes Zyrtec one daily. Wears BiPAP with 1lpm bled into it- adherent to it nightly. History of Mukherjee's Esophagus, followswith GI annually, on PPI, symptoms well controlled for the most part. Social History: Lives in [place], [place] with son, daughter in law and 3 grandchildren, 1 dog. in January 2023. No birds/chickens, no concern for mold/water damage, denies hot tub/jaccuzi use, denies down products. Previously worked at [employer] from [id number], prior to that worked for [employer]. Denies occupational exposure or history. Past 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: Diagnosis Date Allergic purpura [...] the respiratory system History of chronic bronchitis Past Surgical History: Procedure Laterality Date BLADDER SURGERY N/A Bladder Surgery from [facility] CATARACT EXTRACTION N/A Cataract Extraction from [facility] CHOLECYSTECTOMY N/A Cholecystectomy from [facility] HYSTERECTOMY N/A Hysterectomy from [facility] OTHER SURGICAL HISTORY N/A Biopsy Skin from [facility] TOTAL ABDOMINAL HYSTERECTOMY N/A Total Abdominal Hysterectomy from [facility] Family History Problem Relation Name Age of Onset Alzheimer's disease Mother Conversions - Other Mother Stroke Of The Left Anterior Cerebral Artery Heart disease Father Conversions - Other Father Myocardial Infarction Arrhythmias Other (lung mass) Father Social History Social History Narrative Being A Social Drinker Working [employer] Sexually Active Marital Status: Social History Tobacco Use Smoking Status Former Packs/day: 1.00 Years: 7.00 Total pack years: 7.00 Types: Cigarettes Quit date: 09/07/1999 Years since quittin.6 Passive exposure: Past Smokeless Tobacco Never Vaping Use Vaping Use: Never used Allergies Allergen Reactions Codeine Anaphylaxis, Nausea Only, Unknown - Patient states they do not know rxn details and Other -please document in the comment field Iv Contrast [...] in the comment field caused spontaneous bleed Current Outpatient Medications: atorvastatin (Lipitor) 80 MG [...] at the same time., Disp: , Rfl: venlafaxine (Effoxor) 100 MG tablet, TAKE 1 TABLET BY MOUTH TWICE A DAY FOR 90 DAYS, Disp: , Rfl: Zinc Sulfate 140 (50 Zn) MG tablet, 1 (one) time each day at the same time., Disp: , Rfl: Tobacco Allergies Meds Problems Med Hx Surg Hx Fam Hx Review of Systems Constitutional: Negative for chills, fever and unexpected weight change. HENT: Negative for congestion and postnasal drip. Respiratory: Positive for shortness of breath. Negative for cough and wheezing. Cardiovascular: Negative for chest pain and leg swelling. Gastrointestinal: Negative for constipation, diarrhea and vomiting. Musculoskeletal: Negative for arthralgias and joint swelling. Skin: Negative for rash. Allergic/Immunologic: Positive for environmental allergies. Neurological: Positive for dizziness (with change in position). Negative for syncope and light-headedness. Objective Visit Vitals BP 97/66 Pulse 88 Temp 36.8 ??C (98.3 ??F) Ht 1.575 m (5' 2 ) Wt 117 kg (257 lb 11.5 oz) SpO2 95% Comment: ra BMI 47.14 kg/m?? Smoking Status Former BSA 2.26 m?? Physical Exam Constitutional: General: She is not in acute distress. Appearance: Normal appearance. She is well-developed. She is obese. She is not diaphoretic. HENT: Head: Normocephalic and atraumatic. Nose: Nose normal. No congestion. Mouth/Throat: Mouth: Mucous membranes are moist. Eyes: General: No scleral icterus. Conjunctiva/sclera: Conjunctivae normal. Pupils: Pupils are equal, round, and reactive to light. Cardiovascular: Rate and Rhythm: Normal rate and regular rhythm. Heart sounds: Normal heart sounds. No murmur heard. Pulmonary: Effort: Pulmonary effort is normal. No respiratory distress. Breath sounds: Normal breath sounds. No wheezing or rales. Abdominal: General: Bowel sounds are normal. Palpations: Abdomen is soft. There is no mass. Tenderness: There is no abdominal tenderness. Hernia: No hernia is present. Musculoskeletal: General: No swelling or tenderness. Normal range of motion. Cervical back: Normal range of motion and neck supple. Right lower leg: No edema. Left lower leg: No edema. Skin: General: Skin is warm and dry. Capillary Refill: Capillary refill takes less than 2 seconds. Neurological: Mental Status: She is alert and oriented to person, place, and time. Psychiatric: Mood and Affect: Mood normal. Behavior: Behavior normal. Thought Content: Thought content normal. Judgment: Judgment normal. Results: Eos: Imaging: PFT: PFTs 02/04/17: no airflow obstruction. Mild restriction based on decreased TLC. Marked decrease in ERV is likely secondary to obesity. Diffusion capacity for carbon monoxide, uncorrected for Hgb, is normal. FEV1 1.54 (69%) FVC 2.05 (70%) FEV1/FVC 75 TLC 4.24 (89%) DLCO 20.1 (88%) Date FEV1 FVC FEV1/FVC TLC DLCO Assessment Scales: ACT: CAT: MMRC: Breathless Scale Grade 0: No breathlessness except with strenuous excercise.: 0 Grade 1: Shortness of breath when hurrying on the level or walking up a slight hill.: 4 Grade 2: Walk slower than people of the same age on the level because of breathlessness or has to stop for breath when walking at own pace on the level.: 4 Grade 3: Stops for breath after walking about 100 meters or after a few minutes on the level.: 4 Grade 4: Too breathless to leave the house or breathless when dressing or undressing.: 4 Assessment/Plan Diagnosis Plan 1. DELL (obstructive sleep apnea) Ambulatory referral to Sleep Medicine 2. Coronary artery disease involving grayling coronary artery of grayling heart without angina pectorisAmbulatory referral to Pulmonology 3. Chest pain, unspecified type Ambulatory referral to Pulmonology 4. Shortness of breath Ambulatory referral to Pulmonology CBC and Differential Comprehensive Metabolic Panel, Plasma Thyroid Stimulating Hormone, Plasma Vitamin D 25 Hydroxy XR Chest 2 Views Pulmonary function test Six-Minute Walk Test 5. Paroxysmal atrial fibrillation (CMS/HCC) Ambulatory referral to Pulmonology 6. Mixed hyperlipidemia Ambulatory referral to Pulmonology 7. Left ventricular hypertrophy Ambulatory referral to Pulmonology 8. Chronic fatigue Ambulatory referral to Pulmonology 9. Body mass index (BMI) 45.0-49.9, adult (CMS/[facility]) Vitamin D 25 Hydroxy 10. Hypothyroidism, unspecified type Thyroid Stimulating Hormone, Plasma Orders Placed This Encounter Procedures XR Chest 2 Views Standing Status: Future Standing Expiration Date: 10/06/2024 Order Specific Question: Reason for exam: Answer: dyspnea, chronic Order Specific Question: Release to patient in [facility] Answer: Immediate CBC and Differential Order Specific Question: Release to patient in [facility] Answer: Immediate Comprehensive Metabolic Panel, Plasma Order Specific Question: Release to patient in [facility] Answer: Immediate Thyroid Stimulating Hormone, Plasma Order Specific Question: Release to patient in [facility] Answer: Immediate Vitamin D 25 Hydroxy Standing Status: Future Number of Occurrences: 1 Standing Expiration Date: 11/04/2024 Order Specific Question: Release to patient in [facility] Answer: Immediate Ambulatory referral to Sleep Medicine Standing Status: Future Standing Expiration Date: 11/04/2024 Referral Priority: Routine Referral Type: Consultation Referral Reason: Specialty Services Required Number of Visits Requested: 1 Pulmonary function test Standing Status: Future Standing Expiration Date: 11/04/2024 Order Specific Question: Reason for Exam: Answer: dyspnea, chronic Order Specific Question: Which PFTs would you like to perform? Answer: Full PFT (Spirometry, Lung Volumes and Diffusion Capacity) Order Specific Question: Type of spirometry: Answer: Pre and post bronchodilator Order Specific Question: Where will this be performed? Answer: PFT Lab Performed Six-Minute Walk Test Standing Status: Future Standing Expiration Date: 11/04/2024 Order Specific Question: Where will this be performed? Answer: PFT Lab Performed Discussion/Summary: 73 y.o. female with: 1) Dyspnea on exertion -Echocardiogram scheduled for 05/07/23 -Prior PFTs 2017 showed no obstruction, mild restriction thought related to obesity, with a normal DLCO. -endorses dyspnea that started after her hospitalization in 2019, though reports she feels like it has been more persistent since her cardiac stent in 2021. -CXR today -obtain labs including CBC with diff, CMP, TSH, Vitamin D -plan for full PFTs and Six Minute Walk at follow up 2) Obstructive Sleep Apnea -wears BiPAP nightly with 1lpm of oxygen bled into it. -has not followed with Sleep Medicine since her BiPAP was issued post hospitalization in 2019. -I will send a referral to Sleep Medicine to evaluate 3) Obesity -Complicates all aspects of care -BMI 47.14 -Encourage diet/exercise as able 4) CAD post stent in LAD, Afib -Follows with Cardiology regularly, Dr. Arellano -Echocardiogram pending -she is starting Cardiac Rehab in [facility]. Pulmonary health maintenance - PCV-20 - will encourage prevnar 20 at follow up - PCV-13 (prevnar) - 2016 - Influenza vaccine - has not received vaccination for season - SARS-CoV-2 vaccination (COVID vaccination) - has received COVID 19 vaccination. Follow up: 4 weeks. Labs and CXR today. Plan for full PFTs and Six Minute Walk with her follow up. I spent 65 minutes performing all or some of the following: Reviewing the history , performing an examination and evaluation, entering clinical information into the EHR, interpreting the results, counseling family/patient/caregiver, reviewing x-rays and laboratories, ordering the medications, testsand procedures, referring and communicating with consulting health caregivers homecare and care coordination. HEIDI Morrison [facility] [address] [facility] [address] Dept: [phone] Dept Loc: [phone] Loc Note to patient: The Century Cares Act makes medical notes like these available to patients inthe interest of transparency. However, be advised this is a medical document. It is intended as peer to peer communication. It is written in medical language and may contain abbreviations or verbiagethat are unfamiliar. It may appear blunt or direct. Medical documents are intended to carry relevant information, facts as evident, and the clinical opinion of the practitioner. documented in this encounter Plan of Treatment Upcoming Encounters Date Type Department Care Team (Late st Contact Info) Description 08/08/2024 1:00 PM EST Office Visit [facility] Nephrology, Bone & Mineral Metabolism [address], [address] [place] [address] Diana Ahumada MD [address] [place] [address] 12/30/2024 10:15 AM EDT Office Visit [facility] [address] [place] [address] Luis Olivares MD [address] [address] Scheduled Referrals Name Type Priority Associated Diagnoses Order Schedule Ambulatory referral to Sleep Medicine Outpatient Referral Routine DELL (obstructive sleep apnea) Expected: 05/06/2023 (Approximate), Expires: 11/04/2024 documented as of this encounter Procedures Procedure Name Priority Date/Time Associated Diagnosis Comments CBC WITH AUTO DIFFERENTIAL Routine 05/06/2023 3:00 PM EDT Shortness of breath TSH Routine 05/06/2023 3:00 PM EDT Shortness of breath Hypothyroidism, unspecified type COMPREHENSIVE METABOLIC PANEL, PLASMA Routine 05/06/2023 3:00 PM EDT Shortness of breath documented in this [...] min 06/12/2023 11:21 AM EDT VYAIRE PFT FKS6KJH TEST 88.00 % 06/12/2023 11:21 AM EDT VYAIRE PFT GDZ1YSP TEST 93.00 % 06/12/2023 11:21 AM EDT VYAIRE PFT NXS3RDA TEST RECOVERY 90.00 % 06/12/2023 11:21 AM [...] Previous 6MWD on 02/04/17 was 291 m. us Sammie GORDON PFT ORDERABLES Final Result * Pulmonary function test (06/12/2023 11:24 AM EDT) XQI7GNPO 1.58 L 06/12/2023 10:53 AM EDT VYAIRE PFT PTC3ZIA 1.47 L 06/12/2023 10:53 AM EDT VYAIRE PFT FVC PRED 2.43 06/12/2023 10:53 AM EDT VYAIRE PFT FVC LLN 1.75 06/12/2023 10:53 AM EDT VYAIRE PFT FVCPREZSCORE -2.34 06/12/2023 10:53 AM EDT VYAIRE PFT FVCPRE%PRED 60 % % 06/12/2023 10:53 AM EDT VYAIRE PFT FVCPOSTZSCORE -2.07 06/12/2023 10:53 AM EDT VYAIRE PFT FVCPOST%PRED 65 % % 06/12/2023 10:53 AM EDT VYAIRE PFT FVCCHNG 110.00 06/12/2023 10:53 AM EDT VYAIRE PFT FVC%CHG 7 % % 06/12/2023 10:53 AM EDT VYAIRE PFT FVC PREDAUTSt. Luke[facility]idian Medical Centerfanny [facility] (2011) 06/12/2023 10:53 AM EDT VYAIRE PFT FVC Z-SCORE -2.34 -2.07 06/12/2023 10:53 AM EDT VYAIRE PFT [id number] 1.07 L 06/12/2023 10:53 AM EDT VYAIRE PFT FEV1 PRE 0.96 L 06/12/2023 10:53 AM EDT VYAIRE PFT FEV1 PRED 1.88 06/12/2023 10:53 AM EDT VYAIRE PFT FEV1 LLN 1.35 06/12/2023 10:53 AM EDT VYAIRE PFT IJL2FMVLVHYVR -2.77 06/12/2023 10:53 AM EDT VYAIRE PFT FEV1_Pre%Pred 51 % % 06/12/2023 10:53 AM EDT VYAIRE PFT GLV3HSRNWHZHEC -2.45 06/12/2023 10:53 AM EDT VYAIRE PFT NGY6TMKE%PRED 57 % % 06/12/2023 10:53 AM EDT VYAIRE PFT BKG1NDRV 111.00 06/12/2023 10:53 AM EDT VYAIRE PFT FEV1%CHG 12 % % 06/12/2023 10:53 AM EDT VYAIRE PFT FEV1 PREDAUTSt. Luke's Meridian Medical Centerfanny [facility] (2011) 06/12/2023 10:53 AM EDT VYAIRE PFT FEV1 Z-SCORE -2.77 -2.45 06/12/2023 10:53 AM EDT VYAIRE PFT MMH9JQW0LUSL 68.17 % 06/12/2023 10:53 AM EDT VYAIRE PFT FEV1/FVC PRE 65.71 % 06/12/2023 10:53 AM EDT VYAIRE PFT VJG0HMBCBJO 78 06/12/2023 10:53 AM EDT VYAIRE PFT JWI3YTFXOF 64 06/12/2023 10:53 AM EDT VYAIRE PFT JKK6OCDFIPBLABKL -1.47 06/12/20 10:53 AM EDT VYAIRE PFT YJI1LZYRVT%PRED 84 % % 10:53 AM EDT VYAIRE PFT UAI0BRBLDCLQDCKFQ -1.19 023 10:53 AM EDT VYAIRE PFT MXR7GJPMLPV%PRED 87 % % 06/12/20 10:53 AM EDT VYAIRE PFT TAA6OLQFZRB 2455 06/12/2023 10:53 AM EDT VYAIRE PFT CRX5MOZ%CHG 4 % % 06/12/2023 10:53 AM EDT VYAIRE PFT HRQ1UCAYYCRT US_Quanjer GLI (2011) 06/12/2023 10:53 AM EDT VYAIRE PFT XDR2MVBBUKVND -1 -1 06/12/2023 10:53 AM EDT VYAIRE PFT QXJ09-23%_POST 0.56 L/s 06/12/2023 10:53 AM EDT VYAIRE PFT TSC40-38% PRE 0.49 L/s 06/12/2023 10:53 AM EDT VYAIRE PFT OHR38-81%_Pred 1.61 06/12/2023 10:53 AM EDT VYAIRE PFT ZVJ5327%LLN 0.71 06/12/2023 10:53 AM EDT VYAIRE PFT OTN2446%PREZSCORE -2.23 023 10:53 AM EDT VYAIRE PFT PAW6665%PRE%PRED 30 % % 06/12/20 10:53 AM EDT VYAIRE PFT AKN3838%POSTZSCORE -2.03 2022 10:53 AM EDT VYAIRE PFT MYQ0255%POST%PRED 35 % % 023 10:53 AM EDT VYAIRE PFT JQT9549%CHNG 73.00 06/12/2023 10:53 AM EDT VYAIRE PFT OHA3080%%CHG 15 % % 06/12/2023 10:53 AM EDT VYAIRE PFT FVC6404%PREDAUT US_Trumanjer GLI (2011) 06/12/2023 10:53 AM EDT VYAIRE PFT GPO0KGFU 4.50 L/s 06/12/2023 10:53 AM EDT VYAIRE PFT PEF PRE 3.85 L/s 06/12/2023 10:53 AM EDT VYAIRE PFT PEF PRED 4.88 06/12/2023 10:53 AM EDT VYAIRE PFT PEF LLN 3.33 06/12/2023 10:53 AM EDT VYAIRE PFT PEFPREZSCORE -1.10 06/12/2023 10:53 AM EDT VYAIRE PFT PEFPRE%PRED 79 % % 06/12/2023 10:53 AM EDT VYAIRE PFT PEFPOSTZSCORE -0.40 06/12/2023 10:53 AM EDT VYAIRE PFT PEFPOST%PRED 92 % % 06/12/2023 10:53 AM EDT VYAIRE PFT PEFCHNG 660.00 06/12/2023 10:53 AM EDT VYAIRE PFT PEF%CHG 17 % % 06/12/2023 10:53 AM EDT VYAIRE PFT PEF PREDAUT NHANES III (1998) 06/12/2023 10:53 AM EDT VYAIRE PFT RWGFCZLSTYINVMFX1VWC 12.52 ml/(min* mmHg) 06/12/2023 10:53 AM EDT VYAIRE PFT DLCOSINGLEBREATH PRED 17.29 06/12/2023 10:53 AM EDT VYAIRE PFT DLCOSINGLEBREATH LLN 12.91 10/0 02/2023 10:53 AM EDT VYAIRE PFT DLCOSINGLEBREATH Z-SCORE -1.81 06/12/2023 10:53 AM EDT VYAIRE PFT DLCOSINGLEBREATH % PRED 72.4 % 06/12/2023 10:53 AM EDT VYAIRE PFT DLCOSINGLEBREATH PREDAUT Walt SANTIAGOO GLI (2019) 06/12/2023 10:53 AM EDT VYAIRE PFT DLCOSINGLEBREATH Z-SCORE -1.81 06/12/2023 10:53 AM EDT VYAIRE PFT OFXTRWLFVJXPJXKYF8AY E 12.52 ml/(min* mmHg) 06/12/2023 10:53 AM EDT VYAIRE PFT DLCOCSINGLEBREATH PRED 17.29 06/12/2023 10:53 AM EDT VYAIRE PFT DLCOCSINGLEBREATH LLN 12.91 06/12/2023 10:53 AM EDT VYAIRE PFT DLCOCSINGLEBREATH Z-SCORE -1.81 06/12/2023 10:53 AM EDT VYAIRE PFT DLCOCSINGLEBREATH % PRED 72.4 % 06/12/2023 10:53 AM EDT VYAIRE PFT DLCOCSINGLEBREATH PREDAUTH Stanojevic TLCO GLI (2019) 06/12/2023 10:53 AM EDT VYAIRE PFT XIMSHN1BRC 4.56 ml/(min* mmHg*L) 06/12/2023 10:53 AM EDT VYAIRE PFT DLCOVAPRED 4.24 06/12/2023 10:53 AM EDT VYAIRE PFT DLCOVALLN 3.22 06/12/2023 10:53 AM EDT VYAIRE PFT DLCOVAZSCORE 0.48 06/12/2023 10:53 AM EDT VYAIRE PFT DLCOVA%PRED 107.6 % 06/12/2023 10:53 AM EDT VYAIRE PFT DLCOVAPREDAUTH Stanojevic TLCO GLI (2019) 06/12/2023 10:53 AM EDT VYAIRE PFT DLCOVAZSCORE 0.48 06/12/2023 10:53 AM EDT VYAIRE PFT JGORIKLFU9VPB 4.56 ml/(min* mmHg*L) 06/12/2023 10:53 AM EDT VYAIRE PFT DLCOC SB/VA PRED 4.24 06/12/20 10:53 AM EDT VYAIRE PFT DLCOC SB/VA LLN 3.22 10:53 AM EDT VYAIRE PFT DLCOC SB/VA Z-SCORE 0.48 06/12 10:53 AM EDT VYAIRE PFT DLCOC SB/VA % PRED 107.6 % 2022 10:53 AM EDT VYAIRE PFT DLCOC SB/VA PREDNEW [facility] Walt TLCO GLI (2019) 06/12/2023 10:53 AM EDT VYAIRE PFT DLCOC SB/VA Z-SCORE 0.48 06/12 10:53 AM EDT VYAIRE PFT YFNWYSAJMTMQVS6OID 2.74 L 2022 10:53 AM EDT VYAIRE PFT VASINGLEBREATH PRED 4.06 06/12 10:53 AM EDT VYAIRE PFT VASINGLEBREATH LLN 3.23 2022 10:53 AM EDT VYAIRE PFT VASINGLEBREATH Z-SCORE -2.72 06/12/2023 10:53 AM EDT VYAIRE PFT VASINGLEBREATH % PRED 67.5 % 06/12/2023 10:53 AM EDT VYAIRE PFT VASINGLEBREATH PREDNEW [facility] Patrickwilliamscastillobrittney TLCO GLI (2019) 06/12/2023 10:53 AM EDT VYAIRE PFT VASINGLEBREATH Z-SCORE -2.72 06/12/2023 10:53 AM EDT VYAIRE PFT QNLYYOONWXULJQA8AZH 1.63 L 06/12 10:53 AM EDT VYAIRE PFT IVCSINGLEBREATH PRED 2.43 1002/2023 10:53 AM EDT VYAIRE PFT IVCSINGLEBREATH LLN 1.75 06/12 10:53 AM EDT VYAIRE PFT IVCSINGLEBREATH Z-SCORE -1.95 06/12/2023 10:53 AM EDT VYAIRE PFT IVCSINGLEBREATH % PRED 66.8 % 06/12/2023 10:53 AM EDT VYAIRE PFT IVCSINGLEBREATH PREDAUTH US_Quanjer GLI (2011) 06/12/2023 10:53 AM EDT VYAIRE PFT FMB1EJL 3.54 L 06/12/2023 10:53 AM EDT VYAIRE PFT TLCPRED 4.43 06/12/2023 10:53 AM EDT VYAIRE PFT TLCLLN 3.48 06/12/2023 10:53 AM EDT VYAIRE PFT TLCULN 5.51 06/12/2023 10:53 AM EDT VYAIRE PFT TLCZSCORE -1.54 06/12/2023 10:53 AM EDT VYAIRE PFT TLC%PRED 79.9 % 06/12/2023 10:53 AM EDT VYAIRE PFT TLCPREDAUTH Gandara Lung volumes GLI (2019)__ 06/12/2023 10:53 AM EDT VYAIRE PFT VC0PRE 1.47 L 06/12/2023 10:53 AM EDT VYAIRE PFT VCPRED 2.43 06/12/2023 10:53 AM EDT VYAIRE PFT VCLLN 1.75 06/12/2023 10:53 AM EDT VYAIRE PFT VCULN 3.16 06/12/2023 10:53 AM EDT VYAIRE PFT VCZSCORE -2.34 06/12/2023 10:53 AM EDT VYAIRE PFT VC%PRED 60.3 % 06/12/2023 10:53 AM EDT VYAIRE PFT VCPREDAUTH US_Quanjer GLI (2011) 06/12/2023 10:53 AM EDT VYAIRE PFT IC0PRE 1.21 L 06/12/2023 10:53 AM EDT VYAIRE PFT ICPRED 1.89 06/12/2023 10:53 AM EDT VYAIRE PFT ICLLN 1.25 06/12/2023 10:53 AM EDT VYAIRE PFT ICULN 2.54 06/12/2023 10:53 AM EDT VYAIRE PFT IC Z-SCORE -1.75 06/12/2023 10:53 AM EDT VYAIRE PFT IC%PRED 63.9 % 06/12/2023 10:53 AM EDT [facility]__ 06/12/2023 10:53 AM EDT VYAIRE PFT FZSRITHO4CTB 2.33 L 06/12/2023 10:53 AM EDT VYAIRE PFT FRCPLETH PRED 2.48 06/12/2023 10:53 AM EDT VYAIRE PFT FRCPLETH LLN 1.77 06/12/2023 10:53 AM EDT VYAIRE PFT FRCPLETH ULN 3.38 06/12/2023 10:53 AM EDT VYAIRE PFT FRCPLETH Z-SCORE -0.32 06/12/20 10:53 AM EDT VYAIRE PFT FRCPLETH % PRED 93.8 % 10:53 AM EDT V[facility]AI[facility] [place] [facility]I (2019)__ 06/12/2023 10:53 AM EDT VYAIRE PFT UOR3EES 0.22 L 06/12/2023 10:53 AM EDT VYAIRE PFT ERVPRED 0.60 06/12/2023 10:53 AM EDT VYAIRE PFT ERVLLN 0.14 06/12/2023 10:53 AM EDT VYAIRE PFT ERVULN 1.33 06/12/2023 10:53 AM EDT VYAIRE PFT ERV Z-SCORE -1.28 06/12/2023 10:53 AM EDT VYAIRE PFT ERV%PRED 36.9 % 06/12/2023 10:53 AM EDT [facility] [place]I (2019)__ 06/12/2023 10:53 AM EDT VYAIRE PFT RV0PRE 2.07 L 06/12/2023 10:53 AM EDT VYAIRE PFT RVPRED 1.84 06/12/2023 10:53 AM EDT VYAIRE PFT RVLLN 1.09 06/12/2023 10:53 AM EDT VYAIRE PFT RVULN 2.84 06/12/2023 10:53 AM EDT VYAIRE PFT RVZSCORE 0.42 06/12/2023 10:53 AM EDT VYAIRE PFT RV%PRED 112.4 % 06/12/2023 10:53 AM EDT VYAIRE PFT RVPREDAUTH [facility] Lung volumes GLI (2019)__ 06/12/2023 10:53 AM EDT VYAIRE PFT RV%PUX2PBV 58.56 % 06/12/2023 10:53 AM EDT VYAIRE PFT RV%TLCPRED 42 06/12/2023 10:53 AM EDT VYAIRE PFT RV%TLCLLN 29 06/12/2023 10:53 AM EDT VYAIRE PFT RV%TLCULN 56 06/12/2023 10:53 AM EDT VYAIRE PFT RV%TLCZSCORE 1.98 06/12/2023 10:53 AM EDT VYAIRE PFT RV%TLC%PRED 140.4 % 06/12/2023 10:53 AM EDT VYAIRE PFT RV%TLCPREDAUTH [facility] Lung volumes GLI (2019)__ 06/12/2023 10:53 AM EDT VYAIRE PFT WJC3UTK 2.46 L 06/12/2023 10:53 AM EDT VYAIRE PFT Anatomical Region Laterality Modality PFT 06/12/2023 10:1 1 AM EDT Narrative 06/13/2023 11:04 AM EDT Pulmonary Function Testing Report Mirtha Lester Pack 73 y.o. underwent pulmonary function testing today at the [facility]. The patient underwent spirometry, lung volumes by body plethysmography, and diffusion capacity testing. All tests were appropriately administered via ATS/ERS criteria. Testing is acceptable and reproducible. Spirometry: Reduced FEV1 and FVC with a normal ratio and normal TLC consistent with a non-specific spirometry pattern. There is no significant positive bronchodilator response. Lung Volumes: Elevated RV/TLC is suggestive of air trapping. A non specific spirometric pattern in the setting of air trapping can be suggestive of underlying small airways disease. Diffusion Capacity: Diffusion capacity uncorrected for Hb is mildly reduced. A reduced DLCO with a low VA and normal KCO is a pattern that may suggest loss of alveolar capillary structure with loss of lung volume in conditions such as emphysema and ILD. Trend: There are no prior studies for comparison. us Sammie GORDON PFT ORDERABLES Final Result * Vitamin D 25 Hydroxy (05/06/2023 3:00 PM EDT) Vitamin D 25 Hydroxy 39.8 20.0 - 80.0 ng/mL 05/06/2023 6:06 PM EDT [facility] Blood Venous blood specimen / Unknown Venipuncture / Unknown 05/06/2023 3:00 PM EDT 05/06/2023 3:01 PM EDT Narrative [facility] - 05/06/2023 6:06 PM EDT Testing performed on [employer], standardized against NIST SRM 2972. When testing samples from patients whose predominant form of vitamin D is vitamin D2, such as patients receiving vitamin D2 supplementation, results that are subtherapeutic should be confirmed with another method, such as LC-MS/MS, before being used for patient management. Vitamin D, 25-Hydroxy reference range, age 18 years and up: Deficiency: ? <12 ng/mL Insufficiency: ? 12 to 19 ng/mL Sufficiency: ?20 to 80 ng/mL Possible toxicity: ?? >100 ng/mL Sammie GORDON LAB BLOOD ORDERABLES Final Re sult [facility] [address] [place] [id number] * Thyroid Stimulating Hormone, Plasma (05/06/2023 3:00 PM EDT) Thyroid Stimulating Hormone, Plasma 3.23 0.40 - 4.20 uIU/mL 05/06/2023 4:35 PM EDT [facility] Blood Venous blood specimen / Unknown Venipuncture / Unknown 05/06/2023 3:00 PM EDT 05/06/2023 3:01 PM EDT Sammie GORDON LAB BLOOD ORDERABLES Final Re sult [facility] [address] [id number] * (ABNORMAL) Comprehensive Metabolic Panel, Plasma (05/06/2023 3:00 PM EDT) Glucose, Plasma 211(H) 74 - 99 mg/dL 05/06/2023 4:35 PM EDT [facility] BUN, Plasma 37(H) 8 - 23 mg/dL 05/06/2023 4:35 PM EDT [facility] Creatinine, Plasma 2.00(H) 0.60 - 1.10 mg/dL 05/06/2023 4:35 PM EDT [facility] BUN/Creatinine Ratio 19 05/06/2023 4:35 PM EDT [facility] Sodium, Plasma 139 136 - 145 mmol/L 05/06/2023 4:35 PM EDT [facility] Potassium, Plasma 4.2 3.7 - 4.8 mmol/L 05/06/2023 4:35 PM EDT [facility] Chloride, Plasma 98 97 - 107 mmol/L 05/06/2023 4:35 PM EDT [facility] CO2, Plasma 25 22 - 29 mmol/L 05/06/2023 4:35 PM EDT [facility] Anion Gap 16 6 - 16 mmol/L 05/06/2023 4:35 PM EDT [facility] Total Calcium, Plasma 9.7 8.9 - 10.2 mg/dL 05/06/2023 4:35 PM EDT [facility] Total Protein 7.3 6.3 - 7.9 g/dL 05/06/2023 4:35 PM EDT [facility] Albumin, Plasma 4.2 3.5 - 5.2 g/dL 05/06/2023 4:35 PM EDT [facility] AST, Plasma 14 10 - 35 U/L 05/06/2023 4:35 PM EDT [facility] ALT, Plasma 19 10 - 35 U/L 05/06/2023 4:35 PM EDT [facility] Alkaline Phosphatase, Plasma 71 46 - 142 U/L 05/06/2023 4:35 PM EDT [facility] Total Bilirubin, Plasma 0.3 0.2 - 1.1 mg/dL 05/06/2023 4:35 PM EDT [facility] eGFRcr 25.8 mL/min/1.7 3m*2 05/06/2023 4:35 PM EDT [facility] Comment:Reported eGFRcr in m L/min/1.73m2 is based the CKD-EPI 2020 equation that does not use a race coefficient. Blood Venous blood specimen / Unknown Venipuncture / Unknown 05/06/2023 3:00 PM EDT 05/06/2023 3:01 PM EDT us Sammie GORDON LAB BLOOD ORDERABLES Final Re sult [facility] [address] [place] [id number] * (ABNORMAL) CBC and Differential (05/06/2023 3:00 PM EDT) WBC Count 11.34(H) 3.70 - 10.30 10*3/uL LAB HEMATOLOGY METHOD 05/06/2023 3:50 PM EDT [facility] RBC Count 4.51 3.90 - 5.20 10*6/uL LAB HEMATOLOGY METHOD 05/06/2023 3:50 PM EDT [facility] HGB 14.0 11.2 - 15.7 g/dL LAB HEMATOLOGY METHOD 05/06/2023 3:50 PM EDT [facility] HCT 41.8 34.0 - 45.0 % LAB HEMATOLOGY METHOD 05/06/2023 3:50 PM EDT [facility] Platelet Count 257 155 - 369 10*3/uL LAB HEMATOLOGY METHOD 05/06/2023 3:50 PM EDT [facility] MCV 93 79 - 98 fL LAB HEMATOLOGY METHOD 05/06/2023 3:50 PM EDT [facility] MCH 31.0 26.0 - 32.0 pg LAB HEMATOLOGY METHOD 05/06/2023 3:50 PM EDT [facility] MCHC 33.5 30.7 - 35.5 g/dL LAB HEMATOLOGY METHOD 05/06/2023 3:50 PM EDT [facility] RDW 13.0 11.5 - 14.5 % LAB HEMATOLOGY METHOD 05/06/2023 3:50 PM EDT [facility] MPV 10.6 8.8 - 12.5 fL LAB HEMATOLOGY METHOD 05/06/2023 3:50 PM EDT [facility] nRBC 0.0 <=0.0 per 100 WBCs LAB HEMATOLOGY METHOD 05/06/2023 3:50 PM EDT [facility] Differential Type Automated LAB HEMATOLOGY METHOD 05/06/2023 3:50 PM EDT [facility] Neutrophils % 65.0 % LAB HEMATOLOGY METHOD 05/06/2023 3:50 PM EDT [facility] Lymphocytes % 23.0 % LAB HEMATOLOGY METHOD 05/06/2023 3:50 PM EDT [facility] Monocytes % 7.0 % LAB HEMATOLOGY METHOD 05/06/2023 3:50 PM EDT [facility] Eosinophils % 3.0 % LAB HEMATOLOGY METHOD 05/06/2023 3:50 PM EDT [facility] Basophils % 1.0 % LAB HEMATOLOGY METHOD 05/06/2023 3:50 PM EDT [facility] Immature Granulocytes % 1.0 % LAB HEMATOLOGY METHOD 05/06/2023 3:50 PM EDT [facility] Neutrophils Absolute 7.48(H) 1.60 - 6.10 10*3/uL LAB HEMATOLOGY METHOD 05/06/2023 3:50 PM EDT [facility] Lymphocytes Absolute 2.57 1.20 - 3.90 10*3/uL LAB HEMATOLOGY METHOD 05/06/2023 3:50 PM EDT [facility] Monocytes Absolute 0.80 0.30 - 0.90 10*3/uL LAB HEMATOLOGY METHOD 05/06/2023 3:50 PM EDT [facility] Eosinophils Absolute 0.37 0.00 - 0.50 10*3/uL LAB HEMATOLOGY METHOD 05/06/2023 3:50 PM EDT [facility] Basophils Absolute 0.06 0.00 - 0.10 10*3/uL LAB HEMATOLOGY METHOD 05/06/2023 3:50 PM EDT [facility] Immature Granulocytes Absolute 0.06 0.00 - 0.06 10*3/uL LAB HEMATOLOGY METHOD 05/06/2023 3:50 PM EDT [facility] Blood Venous blood specimen / Unknown Venipuncture / Unknown 05/06/2023 3:00 PM EDT 05/06/2023 3:01 PM EDT Narrative [facility] - 05/06/2023 3:50 PM EDT Therapeutic decision making should be based on absolute values, rather than percentages. 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 Chest pain, unspecified type Shortness of breath Paroxysmal atrial fibrillation (CMS/HCC) Atrial fibrillation Mixed hyperlipidemia Left ventricular hypertrophy Cardiomegaly Chronic fatigue Other malaise and fatigue Body mass index (BMI) 45.0-49.9, adult (CMS/HCC) Hypothyroidism, unspecified type Shortness of breath Shortness of breath documented in this encounter Additional Health Concerns Assessment Noted Time PHQ-9 Depression Total Score: 13 023 1:16 PM EDT A fall risk assessment has been complete d for the patient 05/06/2023 1:19 PM EDT A Body Mass Index follow-up plan has been documented for the patient 05/06/2023 2:37 PM EDT documented as of this encounter Care Teams Vocational Coordinator Relationship Specialty Start Date End Date Heladio Palm MD [address] [place] [id number] PCP - General Internal Medicine 05/02/22 documented as of this encounter
--- OUTSIDE RECORDS SUMMARY | 2024-08-02 15:13 | XMS_ITS | Encounter Summary ---
Author Organization [facility] Address [address] [place] [address] Care Team Providers Care Manager Flight Name Role Phone Heladio Palm MD Primary Care Provider [phone] Reason for Visit * Reason Onset Date Comments ENE- BipapMarco Daley 05/15/2023 Encounter Details Date Type Department Care Team ([facility] Info) Description 05/15/2023 Telephone [facility] Medicine Specialties [address] [place] [address] Meenakshi Cadena [facility] [address] [place] [address] EEN- Ernst Daley Social History Tobacco Use Types Packs/Day Years [...] encounter Miscellaneous Notes * Telephone Encounter - Meenakshi Cadena - 05/15/2023 1:26 PM EDT Faxed order to [facility]. documented in this encounter Plan of Treatment Upcoming Encounters Date Type Department Care Team ([facility] Contact Info) Description 08/08/2024 1:00 PM EST Office Visit [facility] [place] [facility]eral Met[facility] [address], [address] [place] [address] Diana Ahumada MD [address] [place] [address] 12/30/2024 10:15 AM EDT Office Visit [facility] [address] [place] [address] Luis Olivares MD [address] [place] [address] documented as of this encounter [...] as of this encounter Care Teams Manager Flight Relationship Specialty Start Date End Date Heladio Palm MD [address] [place] [id number] PCP - General Internal Medicine 05/02/22 documented as of this encounter
--- OUTSIDE RECORDS SUMMARY | 2024-08-02 15:13 | XMS_ITS | Encounter Summary ---
Author Organization [facility] Address [address] [place] [address] Care Team Providers Care Assembler Mechanical Ordnance Name Role Phone Heladio Palm MD Primary Care Provider [phone] Reason for Referral * Imaging (Routine) - Closed Specialty Diagnoses / Procedures Referred By Esequiel hall Referred To Contact Radiology Diagnoses Coronary artery disease involving [place] coronary artery of [place] heart without angina pectoris Procedures PET/CT Myocardial Perfusion Imaging Multiple Say Arellano MD [address] [place] [address] Phone: tel: fax: Referral ID Status Reason Start Date Expiration Date Visits Re quested Visits Authorized [id number] Closed 07/24/2022 01/23/2024 2 2 Reason for Visit * Imaging (Routine) - Closed Specialty Diagnoses / Procedures Referred By Esequiel hall Referred To Contact Radiology Diagnoses Coronary artery disease involving [place] coronary artery of [place] heart without angina pectoris Procedures PET/CT Myocardial Perfusion Imaging Say Walton MD [address] [place] [address] Phone: tel: fax: Referral ID Status Reason Start Date Expiration Date Visits Re quested Visits Authorized [id number] Closed 07/24/2022 01/23/2024 2 2 Encounter Details Date Type Department Care Team (Latest Contact Info) Description 08/19/2022 9:59 AM EST Hospital Encounter [facility] Radiology [address] [facility], [place] [address] Coronary artery disease involving [place] coronary artery of [place] heart without angina pectoris Discharge Disposition: Home or Self Care Social History Tobacco Use Types Packs/Day Years Used Date Smoking Tobacco: Former Cigarettes Q uit: 1999 Passive Smoke Exposure: Past Smokeless Tobacco: Never Alcohol Use Standard Drinks/Week Comments Not Currently 0 (1 standard drink = 0.6 oz pur e alcohol) Comments Unknown Sex and Gender Information Value Date Recorded Sex Assigned at Not on file Legal Sex Female 8:26 PM EDT Gender Identity Not on file Sexual Orientation Not on file COVID-19 Exposure Response Date Recorded In the last 10 days, have yo u been in contact with someone who was confirmed or suspected to have Coronavirus/COVID-19? No / Unsure 08/19/2022 9:58 AM EST documented as of this encounter Last Filed Vital Signs Vital Sign Reading Time Taken Comments Blood Pressure - - Pulse - - Temperature - - Respiratory Rate - - Oxygen Saturation - - Inhaled Oxygen Concentration - - Weight 120 kg (264 lb 15.9 oz) 08/19/2022 10:52 AM EST Height - - Body Mass Index 48.47 07/24/2022 10:06 AM EST documented in this encounter Medications at Time of Discharge carvedilol (Coreg) 25 MG tablet TAKE 1 TABLET BY MOUTH TWICE A DAY FOR 30 DAYS 04/17/2022 cholecalciferol (Vitamin D3) 25 MCG (1000 UT) tablet Take 1 tablet (1,000 Units) by mouth 1 (one) time each day. clopidogrel (Plavix) 75 MG tablet Take 1 tablet (75 mg) by mouth 1 (one) time each day. 07/01/2022 levothyroxine (Synthroid, Levoxyl) 100 MCG tablet Take 1 tablet (100 mcg) by mouth 1 (one) time each day. 03/01/2022 losartan (Cozaar) 50 MG tablet TAKE 1 TABLET BY MOUTH EVERY DAY FOR 30 DAYS 06/18/2022 magnesium oxide (Mag-Ox) 400 (240 Mg) MG tablet Take 1 tablet (400 mg) by mouth 1 (one) time each day. venlafaxine (Effoxor) 100 MG tablet Take 1 tablet (100 mg) by mouth 1 (one) time each day. 04/19/2022 acetaminophen (Tylenol) 500 MG tablet 3 amLODIPine (Norvasc) 10 MG tablet Take 10 mg by mouth 1 (one) time each day. 05/22/2022 3 Ascorbic Acid (vitamin C) 500 MG tablet 1 (one) time each day at the same time. 3 Aspirin Buf,CaCarb-MgCar b-MgO, 81 MG tablet 01/06/2017 3 atorvastatin (Lipitor) 80 MG tabletIndication s:Coronary artery disease involving s[place] coronary artery of [place] heart without angina pectoris Take 1 tablet (80 mg total) by mouth 1 (one) time each day. 90 tablet 1 07/24/2022 3 gabapentin (Neurontin) 300 MG capsule TAKE 1 CAPSULE BY MOUTH TWICE A DAY FOR NEUROPATHY SYMPTOMS 04/26/2022 4 glipiZIDE (Glucotrol) 5 MG tablet TAKE 1 TABLET BY MOUTH EVERY DAY FOR 30 DAYS 03/15/2022 3 omeprazole (PriLOSEC) [address] capsule Take 20 mg by mouth 2 (two) times a day. 03/18/2022 3 predniSONE (Deltasone) 20 MG tablet PLEASE SEE ATTACHED FOR DETAILED DIRECTIONS 06/19/2022 3 Zinc Sulfate 140 (50 Zn) MG tablet 1 (one) time each day at the same time. 4 documented as of this encounter Plan of Treatment Upcoming Encounters Date Type Department Care Team (Late st Contact Info) Description 08/08/2024 1:00 PM EST Office Visit [facility] Nephrology, Bone & Mineral Metabolism [address] [facility], [address] [place] [address] Diana Ahumada MD [address] [place] [address] 12/30/2024 10:15 AM EDT Office Visit [facility] [address] [place] [address] Luis Olivares MD [address] [facility] [address] [place] [address] documented as of this encounter Procedures Procedure Name Priority Date/Time Associated Diagnosis Comments PET/CT MYOCARDIAL PERFUSION IMAGING MULTIPLE Routine 08/19/2022 11:57 AM EST Coronary artery disease involving [place] coronary artery of [place] heart without angina pectoris documented in this encounter Results * PET/CT Myocardial Perfusion Imaging Multiple (08/19/2022 11:57 AM EST) Anatomical Region Laterality Modality Heart Nuclear Medicine Impressions 08/19/2022 2:06 PM EST 1. Abnormal myocardial perfusion. There is a fixed defect in the basal anterior wall. This may also represent artifact. No reversible defect. 2. Normal regional and global systolic function at rest. Normal LVEF augmentation ??with stress; peak stress LVEF 65%. 3. Multivessel coronary artery calcification. Calcium score not acquired secondary to prior stent placement. 4. Abnormal global myocardial flow reserve. 5. Overall, no evidence of ischemia. Abnormal global myocardial flow reserve likely related to known coronary artery atherosclerotic calcification and microvascular disease. CRITICAL RESULT: No. COMMUNICATION: Per this written report. Dictated by Lennox Cross MD on 08/19/2022 1:28 PM Signed by Lennox Cross MD on 08/19/2022 2:06 PM Narrative 08/19/2022 2:06 PM EST Exam/Procedure: PET/CT MYOCARDIAL PERFUSION IMAGING MULTIPLE ordered by SAY ARELLANO, [id number] EXAMINATION: Rb-82 Vasodilator PET MPI with CT AC & MBF Quantification CLINICAL INDICATION: Patient is a 72 years old Female who presents for assessment of chest pain in presence of known coronary artery disease. TECHNIQUE: Dynamic Rest & Stress Rb-[address] attenuation correction. Rest imaging was performed with CT attenuation correction with the patient in the supine position following the intravenous injection of 43 mCi of Rb-82. The patient was infused intravenously with 0.4mg of Regadenoson for a total duration of 10 seconds. Stress imaging was then performed; 43 mCi of Rb-82 was injected intravenously after the termination of Regadenoson infusion. The heart was imaged with CT attenuation correction with the patient in the supine position post-injection. TOTAL DLP (Dose Length Product) for CT scans: 70 mGy cm. FINDINGS: CLINICAL/HEMODYNAMIC/ECG SUMMARY: 1. The heart rate was 76 beats per minute at baseline and 90 beats per minute after vasodilator infusion. 2. The blood pressure was 132/95 mmHg at baseline and 140/65 mmHg after vasodilator infusion. ?? 3. Stress ECGs did not show ischemic ST changes. For further details, please see separate stress test report. SCINTIGRAPHIC FINDINGS: 1. The overall quality of the study is good. 2. PET images demonstrate abnormal myocardial perfusion. There is a medium-size, moderate defect located in the basal anterior myocardium. The defect is fixed. 3. Summed stress score = 4. Summer rest score = 4. Summed difference score = 0. 4. There is no stress-induced transient ischemic dilation (TID) of the LV (cut- off > 1.13). 5. Slightly dilated left ventricular cavity with an estimated indexed left ventricular end-diastolic volume of 88 mL/m2 (normal =< 85 mL/m2 for males, =< 75 mL/m2 for females). 6. The calculated rest LVEF is normal at 60%. The calculated peak stress LVEF is 65%. 7. Regional wall motion is normal. ?? MYOCARDIAL BLOOD FLOW & RESERVE Stress flow (ml/mg/min): ?? LAD: 1.73 LCx: 1.78 RCA: 1.83 Global: 1.77 Rest flow (ml/mg/min): LAD: 1.09 LCx: 1.21 RCA: 1.06 Global: 1.12 [place] (MFR): LAD: 1.61 LCx: 1.47 RCA: 1.73 Global: 1.60 CT FINDINGS: Multivessel coronary artery atherosclerotic calcification. Prior PCI. Within the focused field of view, evaluation of the visualized thoracic and upper abdominal structures demonstrates no additional abnormalities. Procedure Note Lennox Cross MD - 08/19/2022 Exam/Procedure: PET/CT MYOCARDIAL PERFUSION IMAGING MULTIPLE ordered bySAY ARELLANO, [id number] EXAMINATION: Rb-82 Vasodilator PET MPI with CT AC & MBF Quantification CLINICAL INDICATION: Patient is a 72 years old Female who presents for assessment of chest painin presence of known coronary artery disease. TECHNIQUE: Dynamic Rest & Stress Rb-[address] attenuation correction. Rest imaging was performed with CT attenuation correction with the patientin the supine position following the intravenous injection of 43 mCi ofRb-82. The patient was infused intravenously with 0.4mg of Regadenoson fora total duration of 10 seconds. Stress imaging was then performed; 43 mCiof Rb-82 was injected intravenously after the termination of Regadenosoninfusion. The heart was imaged with CT attenuation correction with thepatient in the supine position post-injection. TOTAL DLP (Dose LengthProduct) for CT scans: 70 mGy cm. FINDINGS: CLINICAL/HEMODYNAMIC/ECG SUMMARY: 1. The heart rate was 76 beats per minute at baseline and 90 beats perminute after vasodilator infusion. 2. The blood pressure was 132/95 mmHg at baseline and 140/65 mmHg aftervasodilator infusion. 3. Stress ECGs did not show ischemic ST changes. For further details, please see separate stress test report. SCINTIGRAPHIC FINDINGS: 1. The overall quality of the study is good. 2. PET images demonstrate abnormal myocardial perfusion. There is amedium-size, moderate defect located in the basal anterior myocardium. Thedefect is fixed. 3. Summed stress score = 4. Summer rest score = 4. Summed difference score= 0. 4. There is no stress-induced transient ischemic dilation (TID) of the LV(cut- off > 1.13). 5. Slightly dilated left ventricular cavity with an estimated indexed leftventricular end-diastolic volume of 88 mL/m2 (normal =< 85 mL/m2 formales, =< 75 mL/m2 for females). 6. The calculated rest LVEF is normal at 60%. The calculated peak stressLVEF is 65%. 7. Regional wall motion is normal. MYOCARDIAL BLOOD FLOW & RESERVE Stress flow (ml/mg/min): LAD: 1.73 LCx: 1.78 RCA: 1.83 Global: 1.77 Rest flow (ml/mg/min): LAD: 1.09 LCx: 1.21 RCA: 1.06 Global: 1.12 [place] (MFR): LAD: 1.61 LCx: 1.47 RCA: 1.73 Global: 1.60 CT FINDINGS: Multivessel coronary artery atherosclerotic calcification. Prior PCI. Within the focused field of view, evaluation of the visualized thoracicand upper abdominal structures demonstrates no additional abnormalities. IMPRESSION: 1. Abnormal myocardial perfusion. There is a fixed defect in the basalanterior wall. This may also represent artifact. No reversible defect. 2. Normal regional and global systolic function at rest. Normal LVEFaugmentation with stress; peak stress LVEF 65%. 3. Multivessel coronary artery calcification. Calcium score not acquiredsecondary to prior stent placement. 4. Abnormal global myocardial flow reserve. 5. Overall, no evidence of ischemia. Abnormal global myocardial flowreserve likely related to known coronary artery atheroscleroticcalcification and microvascular disease. CRITICAL RESULT: No. COMMUNICATION: Per this written report. Dictated by Lennox Cross MD on 08/19/2022 1:28 PM Signed by Lennox Cross MD on 08/19/2022 2:06 PM us Say Arellano MD IMG NM PROCEDURES Final Res ult documented in this encounter Visit Diagnoses Diagnosis Coronary artery disease involving [place] coronary artery of [place] heart without angina pectoris documented in this encounter Additional Health Concerns Assessment Noted Time A fall risk assessment has been complete d for the patient 07/24/2022 10:06 AM EST documented as of this encounter Care Teams Assembler Mechanical Ordnance Relationship Specialty Start Date End Date Heladio Palm MD [address] [place] [address] PCP - General Internal Medicine 05/02/22 documented as of this encounter
--- OUTSIDE RECORDS SUMMARY | 2024-08-02 15:13 | XMS_ITS | Encounter Summary ---
Author Organization Healthcare Address [address] [id number] Care Team Providers Care Video Surveillance Technician Name Role Phone Heladio Palm MD Primary Care Provider [phone] Encounter Details Date Type Department Care Team (Latest Contact Info) Description 07/24/2022 Travel Social History Tobacco Use Types Packs/Day [...] suspected to have Coronavirus/COVID-19? No / Unsure 07/24/2022 9:52 AM EST documented as of this encounter Plan of Treatment Upcoming Encounters Date Type Department Care Team (Late st Contact Info) Description 08/08/2024 1:00 PM EST Office Visit [facility] Nephrology, Bone & Mineral Metabolism [address] [facility], [address] [place] [address] Diana Ahumada MD [address] [place] [address] 12/30/2024 10:15 AM EDT Office Visit [facility] [address] [place] [address] Luis Olivares MD [address] [place] [address] documented as of this encounter Visit Diagnoses Not on filedocumented in this encounter Additional Health Concerns Assessment Noted Time A fall risk assessment has been complete d for the patient 07/24/2022 10:06 AM EST documented as of this encounter Care Teams Video Surveillance Technician Relationship Specialty Start Date End Date Heladio Palm MD [address] [place] [address] PCP - General Internal Medicine 05/02/22 documented as of this encounter
--- OUTSIDE RECORDS SUMMARY | 2024-08-02 15:13 | XMS_ITS | Encounter Summary ---
Author Organization [facility] Address [address] [place] [address] Care Team Providers Care Specialist Employee Labor Relations Name Role Phone Heladio Palm MD Primary Care Provider [phone] Reason for Referral * Consultation (Routine) - Closed Specialty Diagnoses / Procedures Referred By Contac t Referred To Contact Nephrology Diagnoses Elevated serum creatinine Sammie [place] PA [address] [place] [address] Phone: tel: fax: [facility] Nephrology, Bone & Mineral Metabolism [address], [address] [place] [address] Phone: tel: fax: Referral ID Status Reason Start Date Expiration Date V isits Requested Visits Authorized [id number] Closed Specialty Services Required 05/12/2023 11/10/2024 1 1 Scheduling Instructions Elevated Creatinine Encounter Details Date Type Department Care Team (Late st Contact Info) Description 05/12/2023 Orders Only [facility] [address] [place] [address] Sammie East PA [address] [place] [address] Elevated serum creatinine (Primary Dx) Social History Tobacco Use Types [...] Description 08/08/2024 1:00 PM EST Office Visit [facility] Nephrology, Bone & Mineral Metabolism [address], [address] [place] [address] Diana Ahumada MD [address] [place] [address] 12/30/2024 10:15 AM EDT Office Visit [facility] [address] [place] [address] Luis Olivares MD [address] [place] [address] Scheduled Referrals Name Type Priority Associated Diagnoses Order Schedule Ambulatory referral to Nephrology Outpatient Referral Routine Elevated serum creatinine Expected: 05/12/2023 (Approximate), Expires: 11/09/2024 documented as of this encounter Visit Diagnoses Diagnosis Elevated serum [...] documented as of this encounter Care Teams Specialist Employee Labor Relations Relationship Specialty Start Date End Date Heladio Palm MD [address] [place] [address] PCP - General Internal Medicine 05/02/22 documented as of this encounter
--- OUTSIDE RECORDS SUMMARY | 2024-08-02 15:13 | XMS_ITS | Encounter Summary ---
Author Organization [facility] Address [address] [place] [address] Care Team Providers Care Pesticide Control Inspector Name Role Phone Heladio Palm MD Primary Care Provider [phone] Encounter Details Date Type Department Care Team (Latest Contact Info) Description 03/26/2023 Travel Social History Tobacco Use Types Packs/Day Years Used Date Smoking Tobacco: Former Cigarettes 1 40 0 09/07/1959 - 09/07/1999 Passive Smoke Exposure: Past Smokeless [...] Description 08/08/2024 1:00 PM EST Office Visit [facility] Nephrology, Bone & Mineral Metabolism [address] [facility], [address] [place] [address] Diana Ahumada MD [address] [place] [address] 12/30/2024 10:15 AM EDT Office Visit [facility] [address] [place] [address] Luis Olivares MD [address] [address] documented as of this encounter Visit Diagnoses Not on filedocumented in this encounter Additional Health Concerns Assessment Noted Time A fall risk assessment has been complete d for the patient 03/26/2023 1:02 PM EDT A Body Mass Index follow-up plan has been documented for the patient 03/26/2023 1:55 PM EDT documented as of this encounter Care Teams Pesticide Control Inspector Relationship Specialty Start Date End Date Heladio Palm MD [address] [place] [address] PCP - General Internal Medicine 05/02/22 documented as of this encounter
--- OUTSIDE RECORDS SUMMARY | 2024-08-02 15:13 | XMS_ITS | Encounter Summary ---
Author Organization [facility] Address [address] [place] [address] Care Team Providers Care Cylinder Block Mechanic Name Role Phone Heladio Palm MD Primary Care Provider [phone] Reason for Referral * Consultation (Routine) - Authorized Specialty Diagnoses / Procedures Referred By Esequiel hall Referred To Contact Cardiology Diagnoses Coronary artery disease involving [place] coronary artery of [place] heart without angina pectoris Chest pain, unspecified type Shortness of breath Paroxysmal atrial fibrillation (CMS/HCC) Mixed hyperlipidemia Left ventricular hypertrophy Chronic fatigue Say Arellano MD [address] [place] [address] Phone: tel: fax: Bryan Allen MD [address] [place] [address] Phone: tel: fax: Referral ID Status Reason Start Date Expiration Date Visits Requested Visits Authorized [id number] Authorized Specialty Services Required 03/26/2023 09/24/2024 1 1 Scheduling Instructions Thursday clinic for watchman * Consultation (Routine) - Authorized Specialty Diagnoses / Procedures Referred By Esequiel hall Referred To Contact Cardiac Rehabilitation Diagnoses Coronary artery disease involving [place] coronary artery of [place] heart without angina pectoris Chest pain, unspecified type Shortness of breath Paroxysmal atrial fibrillation (CMS/HCC) Mixed hyperlipidemia Left ventricular hypertrophy Chronic fatigue Say Arellano MD [address] [place] [address] Phone: tel: fax: [facility] [address], [address] [place] [address] Phone: tel: fax: Referral ID Status Reason Start Date Expiration Date Visits Requested Visits Authorized [id number] Authorized Consult and Treat 03/26/2023 09/24/2024 1 1 * Consultation (Routine) - Closed Specialty Diagnoses / Procedures Referred By Esequiel t Referred To Contact Pulmonary Disease / Pulmonology Diagnoses Coronary artery disease involving [place] coronary artery of mil[place] heart without angina pectoris Chest pain, unspecified type Shortness of breath Paroxysmal atrial fibrillation (CMS/HCC) Mixed hyperlipidemia Left ventricular hypertrophy Chronic fatigue Say Arellano MD [address] [place] [address] Phone: tel: fax: [facility] [address], [address] [place] [address] Phone: tel: fax: Referral ID Status Reason Start Date Expiration Date V isits Requested Visits Authorized [id number] Closed Specialty Services Required 03/26/2023 09/24/2024 1 1 * Imaging (Routine) - Closed Specialty Diagnoses / Procedures Referred By Contac t Referred To Contact Cardiology Diagnoses Coronary artery disease involving [place] coronary artery of [place] heart without angina pectoris Chest pain, unspecified type Shortness of breath Paroxysmal atrial fibrillation (CMS/HCC) Mixed hyperlipidemia Left ventricular hypertrophy Chronic fatigue Procedures Echo, Adult Transthoracic Complete Say Arellano MD [address] [place] [address] Phone: tel: fax: Referral ID Status Reason Start Date Expiration Date V isits Requested Visits Authorized [id number] Closed Perform Procedure 03/26/2023 09/24/2024 1 1 Encounter Details Date Type Department Care Team (Late st Contact Info) Description 03/26/2023 1:00 PM EDT Office Visit [facility] [address] [place] [address] Say Arellano MD [address] [place] [address] Coronary artery disease involving [place] coronary artery of [place] heart without angina pectoris (Primary Dx); Chest pain, unspecified type; Shortness of breath; Paroxysmal atrial fibrillation (CMS/HCC); Mixed hyperlipidemia; Left ventricular hypertrophy; Chronic fatigue Social History Tobacco Use Types Packs/Day Years [...] Sign Reading Time Taken Comments Blood Pressure 131/82 03/26/2023 12:57 PM EDT Pulse 87 03/26/2023 12:57 PM EDT Temperature - - Respiratory Rate - - Oxygen Saturation 93% 03/26/2023 12:57 PM EDT Inhaled Oxygen Concentration - - Weight 118 kg (259 lb 11.2 oz) 03/26/2023 12:57 PM EDT Height 157.5 cm (5' 2 ) 03/26/2023 12:57 PM EDT Body Mass Index 47.5 03/26/2023 12:57 PM EDT documented in this encounter Miscellaneous Notes * Progress Notes - Say Arellano MD - 03/26/2023 1:00 PM EDT Images from the original note were not included. Patient: Mirtha Lester Pack : 1950 PCP: Heladio Palm MD Mirtha Barrios is a 73 y.o. female who presents to [facility] for a follow up on dyspnea. She is very upset about her QOL or lack thereof due to dyspnea. She reports Class 2 symptoms. She also suffers occasional atypical CP and infrequent tachypalpitations. Cardiac Testing: -pAF (C=5/ H=3) with h/o retroperitoneal bleed; now on ASA only/ needs Watchman -2012 cor angio: non-obstructive disease Dx1 (FFR 0.84) treated medically -06/2022 cor angio: MARYANN LAD -08/19/22 Cardiac PET: mod medium fixed AW defect c/w scar in LAD territory, slightly dilated LV, EF 60% History of Present Illness Mirtha Barrios is doing fair since last office visit. Her cardiac PET was not impressive for ischemia and EF was normal. Her PCP has ordered a CT Chest and PFTs to assess for pulmonary etiology ofher dyspnea. The following portions of the chart were reviewed this encounter and updated as appropriate: Tobacco Allergies Meds Problems Med Hx Surg Hx Fam Hx Review of Systems 14 point review of systems performed, pertinent positives documented in the HPI, and remaining reviewed systems are negative. Objective []Expand by Default Visit Vitals BP 131/82 Pulse 87 Ht 1.575 m (5' 2 ) Wt 118 kg (259 lb 11.2 oz) SpO2 93% BMI 47.50 kg/m?? Smoking Status Former BSA 2.27 m?? Physical Exam Physical Exam Vitals and nursing note reviewed. Constitutional: Appearance: She is obese. HENT: Head: Normocephalic and atraumatic. Eyes: Pupils: Pupils are equal, round, and reactive to light. Cardiovascular: Rate and Rhythm: Normal rate and regular rhythm. Pulses: Normal pulses. Heart sounds: Normal heart sounds. Pulmonary: Effort: Pulmonary effort is normal. Musculoskeletal: Right lower leg: No edema. Left lower leg: No edema. Skin: General: Skin is warm. Capillary Refill: Capillary refill takes less than 2 seconds. Neurological: General: No focal deficit present. Mental Status: She is alert and oriented to person, place, and time. Primary Study Review: I personally reviewed the the report of the following studies: echocardiogram and ECG Assessment/Plan Assessment and Plan Problem List Items Addressed This Visit Cardiology Problems Atrial fibrillation (CMS/HCC) CAD (coronary artery disease) - Primary Essential hypertension Hyperlipidemia Other Obstructive sleep apnea Mirtha Barrios is a 72 y.o. female who presents for follow up on cardiac PET ordered for dyspnea. Cardiac Medications: Anti-platelet: clopidogrel 75 mg Beta Blockers: carvedilol 25 mg Antianginals (long acting nitrates, ranolazine): none Calcium Channel Blockers: amlodipine 10 mg Anticholesterol Therapy: atorvastatin 80 mg All additional Cardiovascular meds: losartan 50 mg # ASCVD--chronic stable -Jun 2022 M[facility]ANN LAD at [facility] -reported persistent exertional dyspnea concerning for ischemia -cardiac PET negative for reversible ischemia with normal LV function -dyspnea likely NOT cardiac but related to pulmonary disease vs obesity vs sedentary lifestyle vs depression -continue clopidogrel/ASA/atorvastatin # dyspnea Likely multifactorial (obesity, atrial fibrillation, diastolic dysfunction, DELL) and evidently she also had abnormal PFTS Will obtain a follow up echo to assess for Pulmonary HTN and DD, and also refer to pulmonary . Will also refer back to cardiac rehab at [facility]. CPAP adherence reemphasized. Diet/ exercise counseling. # HTN--chronic stable -normal EF with mod LVH and grade 1 DD -home readings within guidelines on carvedilol, losartan and amlodipine -no change to therapy - recommend daily sodium restriction to < 1500 mg # p AF--chronic stable -C=5; only on clopidogrel bc of prior bleeding; will refer for Watchman consdieration -she will consider and call, if interested # DELL on BiPAP--chronic stable -reports compliant use of nightly BiPAP # Obesity--chronic needs attention -BMI 50.9 -Discussed need for aggressive weight reduction for a target BMI < 30, following a reduced calorie Heart Healthy diet as well as daily CV exercise > 45 minutes I spent 45 minutes performing the following components of the encounter (on the day of the encounter): reviewing History, examining the patient, reviewing imaging and/or labs, counseling the patient and family/caregiver, communicating with other health acute care assistant, care coordination, and entering clinical information in the EHR. Greater than 50% of the time spent on the encounter was face to face providing direct patient care, counseling for the patient/caregiver, and care coordination. Say Arellano MD documented in this encounter Plan of Treatment Upcoming Encounters Date Type Department Care Team (Late st Contact Info) Description 08/08/2024 1:00 PM EST Office Visit [facility] [address], [address] [place] [address] Diana Ahumada MD [address] [place] [address] 12/30/2024 10:15 AM EDT Office Visit [facility] [address] [place] [address] Luis Olivares MD [address] [place] [address] Scheduled Referrals Name Type Priority Associated Diagnoses Orde r Schedule Ambulatory referral to Pulmonology Outpatient Referral Routine Coronary artery disease involving [place] coronary artery of mil[place] heart without angina pectoris Chest pain, unspecified type Shortness of breath Paroxysmal atrial fibrillation (CMS/HCC) Mixed hyperlipidemia Left ventricular hypertrophy Chronic fatigue Expected: 03/26/2023 (Approximate), Expires: 09/26/2024 Ambulatory referral to Cardiac Rehab Outpatient Referral Routine Coronary artery disease involving [place] coronary artery of [place] heart without angina pectoris Chest pain, unspecified type Shortness of breath Paroxysmal atrial fibrillation (CMS/HCC) Mixed hyperlipidemia Left ventricular hypertrophy Chronic fatigue Expected: 03/26/2023 (Approximate), Expires: 09/26/2024 Ambulatory referral to Cardiology Outpatient Referral Routine Coronary artery disease involving [place] coronary artery of mil[place] heart without angina pectoris Chest pain, unspecified type Shortness of breath Paroxysmal atrial fibrillation (CMS/HCC) Mixed hyperlipidemia Left ventricular hypertrophy Chronic fatigue 1 Occurrences starting 03/26/2023 until 09/26/2024 documented as of this encounter Results * ECHO, ADULT TRANSTHORACIC COMPLETE (06/12/2023 12:37 PM EDT) LVIDd 46 mm CASSIDY ISCV LVIDs 23 mm CASSIDY ISCV IVSd 10 mm CASSIDY ISCV LVPWd 10 mm CASSIDY ISCV LV MASS(C)D 159 g CASSIDY ISCV LV RWT 0.43 mm CASSIDY ISCV MV E Vmax 43.0 cm/s CASSIDY ISCV MV A Vmax 52.9 cm/s CASSIDY ISCV MV E/A 0.8 cm/s CASSIDY ISCV LA dimension 33 mm CASSIDY ISCV RV s' Mick 11.8 cm/s CASSIDY ISCV PA acc time 80 msec CASSIDY ISCV mean PAP 43 mmHg CASSIDY ISCV BSA 2.13 m2 CASSIDY ISCV MV dec time 230 ms CASSIDY ISCV MV P1/2t 67 ms CASSIDY ISCV MVA(P1/2t) 3.3 cm2 CASSIDY ISCV Ao Root Diam 28 mm CASSIDY ISCV Asc Ao Diam 33 mm CASSIDY ISCV Height 157.5 CASSIDY ISCV Weight 116.6 CASSIDY ISCV PA IA(ACCEL) 42.6 mmHg CASSIDY ISCV Baseline Systolic BP 111 CASSIDY ISCV Baseline Diastolic BP 72 CASSIDY ISCV Heart Rate 84 CASSIDY ISCV LAV(MOD-4ch) 52 mL CASSIDY ISCV LAV(MOD-bp) Indexed 19 mL/m2 CASSIDY ISCV LAV(MOD-2ch) 27 mL CASSIDY ISCV LV EDV(MOD-4ch) 53 mL CASSIDY ISCV LV ESV(MOD4ch) 23 mL CASSIDY ISCV EF(MOD-sp4) 57 % CASSIDY ISCV LV Lat e' Velocity 7.8 cm/s CASSIDY ISCV LV Sept e' Mick 7.0 cm/s CASSIDY ISCV Lat E/e' 5.5 CASSIDY ISCV Sep E/e' 6.1 CASSIDY ISCV Avg E/e' 5.8 CASSIDY ISCV Anatomical Region Laterality Modality Echocardiography Narrative 06/12/2023 12:54 PM EDT ?Left??Ventricle: The left ventricle is normal size. There is normal left ventricular myocardial thickness and mass. The left ventricular systolic function is normal. The LVEF is visually estimated at 55 - 60%. The diastolic function is normal. The left ventricular filling pressure is normal. ?Right??Ventricle: The right ventricle is normal in size. The right ventricular systolic function is normal. ?All cardiac valves were reasonably well visualized with 2D and/or color flow Doppler and there was no significant valve regurgitation or stenosis seen. ?There is no recent study available for direct [id number] comparison. ?? Left Ventricle The left ventricle is normal size. There is normal left ventricular myocardial thickness and mass. The left ventricular systolic function is normal. The LVEF is visually estimated at 55 - 60%. The diastolic function is normal. The left ventricular filling pressure is normal. The left ventricular wall motion is normal. Right Ventricle The right ventricle is normal in size. The right ventricular systolic function is normal. The spectral Doppler envelope of TR is not adequate for calculating the right ventricular systolic pressure (RVSP). Based upon other 2D and Doppler features, the RVSP is likely elevated. Left Atrium The left atrial size is normal. The interatrial septum is not well visualized. Right Atrium The right atrial size is normal. IVC/SVC Based on the IVC size and respiratory variation, the estimated right atrial pressure is 8mmHg. Mitral Valve The mitral valve leaflets are normal in appearance with no evidence of mitral valve prolapse. There is trace mitral regurgitation. There is no mitral stenosis. Tricuspid Valve The tricuspid valve is grossly normal in appearance. There is trace tricuspid regurgitation. There is no tricuspid stenosis. Aortic Valve The aortic valve appears to be trileaflet. There is no valvular regurgitation. There is no hemodynamically significant valvular aortic stenosis. Pulmonic Valve The pulmonic valve is grossly normal. There is trace pulmonic regurgitation. There is no pulmonic stenosis. Pericardium No pericardial effusion. Great Vessels The aortic root is normal in size. The sinus of Valsalva (aortic root) diameter is 28 mm by leading edge to leading edge method. In the maximally visualized portion, the ascending aorta appears normal in size. The ascending aorta diameter is 33 mm. The main pulmonary artery is not well visualized. Study Details A complete transthoracic echocardiogram using two-dimensional (2D), m-mode, color and spectral flow Doppler imaging was performed. During the study the apical, parasternal, subcostal and suprasternal view was captured. The study was technically difficult. BP: 111/72 mmHg. Heart Rate: 84 bpm. Heart rate was normal. Height: 157.5 cm. Weight: 116.6 kg. BSA: 2.13 m2. The heart rhythm during this exam was most suggestive of a sinus rhythm. Study Recommendation All cardiac valves were reasonably well visualized with 2D and/or color flow Doppler and there was no significant valve regurgitation or stenosis seen. There is no recent study available for direct [id number] comparison. us Say Arellano MD CV ECHO PROCEDURES Final Re sult documented in this encounter Visit Diagnoses Diagnosis Coronary artery disease involving [place] coronary artery of mil[place] heart without angina pectoris- Primary Chest pain, unspecified type Shortness of breath Paroxysmal atrial fibrillation (CMS/HCC) Atrial fibrillation Mixed hyperlipidemia Left ventricular hypertrophy Cardiomegaly Chronic fatigue Other malaise and fatigue Coronary artery disease involving [place] coronary artery of [place] heart without angina pectoris Chest pain, unspecified type Shortness of breath Paroxysmal atrial fibrillation (CMS/HCC) Atrial fibrillation Mixed hyperlipidemia Left ventricular hypertrophy Cardiomegaly Chronic fatigue Other malaise and fatigue documented in this encounter Additional Health Concerns Assessment Noted Time A fall risk assessment has been complete d for the patient 03/26/2023 1:02 PM EDT A Body Mass Index follow-up plan has been documented for the patient 03/26/2023 1:55 PM EDT documented as of this encounter Care Teams Cylinder Block Mechanic Relationship Specialty Start Date End Date Heladio Palm MD [address] [place] [address] PCP - General Internal Medicine 05/02/22 documented as of this encounter
--- OUTSIDE RECORDS SUMMARY | 2024-08-02 15:13 | XMS_ITS | Encounter Summary ---
Author Organization Healthcare Address [address] [place] [address] Care Team Providers Care Slate Splitter Name Role Phone Heladio Palm MD Primary Care Provider [phone] Encounter Details Date Type Department Care Team (Late Contact Info) Description 05/15/2023 Orders Only [facility] [address] [place] [address] Sammie [place], PA [address] [place] [address] DELL (obstructive sleep apnea) (Primary Dx) Social History Tobacco Use Types [...] Encounters Date Type Department Care Team (Late Contact Info) Description 08/08/2024 1:00 PM EST Office Visit [facility] [address], [address] [place] [address] Dinaa Ahumada MD [address] [place] [address] 12/30/2024 10:15 AM EDT Office Visit [facility] [address] [place] [address] Luis Olivares MD [address] [place] [address] documented as of this encounter Visit Diagnoses Diagnosis DELL (obstructive sleep apnea)- Primary Obstructive sleep apnea (adult) (pediatric) documented in this encounter Additional Health Concerns Assessment Noted Time PHQ-9 Depression Total Score: 13 023 1:16 PM EDT A fall risk assessment has been complete d for the patient 05/06/2023 1:19 PM EDT A Body Mass Index follow-up plan has been documented for the patient 05/06/2023 2:37 PM EDT documented as of this encounter Care Teams Slate Splitter Relationship Specialty Start Date End Date Heladio Palm MD [address] [place] [address] PCP - General Internal Medicine 05/02/22 documented as of this encounter
--- OUTSIDE RECORDS SUMMARY | 2024-08-02 15:13 | XMS_ITS | Encounter Summary ---
Author Organization [facility] Address [address] [place] [address] Care Team Providers Care Air Brake Mechanic Name Role Phone Heladio Palm MD Primary Care Provider [phone] Reason for Referral * Imaging (Routine) - Closed Specialty Diagnoses / Procedures Referred By Contac t Referred To Contact Cardiology Diagnoses Coronary artery disease involving [place] coronary artery of [place] heart without angina pectoris Chest pain, unspecified type Shortness of breath Paroxysmal atrial fibrillation (CMS/HCC) Mixed hyperlipidemia Left ventricular hypertrophy Chronic fatigue Procedures Echo, Adult Transthoracic Complete Say Arellano MD [address] [place] [address] Phone: tel: fax: Referral ID Status Reason Start Date Expiration Date V isits Requested Visits Authorized [id number] Closed Perform Procedure 03/26/2023 09/24/2024 1 1 Reason for Visit * Imaging (Routine) - Closed Specialty Diagnoses / Procedures Referred By Contac t Referred To Contact Cardiology Diagnoses Coronary artery disease involving [place] coronary artery of [place] heart without angina pectoris Chest pain, unspecified type Shortness of breath Paroxysmal atrial fibrillation (CMS/HCC) Mixed hyperlipidemia Left ventricular hypertrophy Chronic fatigue Procedures Echo, Adult Transthoracic Complete Say Arellano MD [address] [place] [address] Phone: tel: fax: Referral ID Status Reason Start Date Expiration Date V isits Requested Visits Authorized [id number] Closed Perform Procedure 03/26/2023 09/24/2024 1 1 Encounter Details Date Type Department Care Team (Latest Contact Info) Description 06/12/2023 11:25 AM EDT - 06/12/2023 11:59 PM EDT Hospital Encounter Cardiac Imaging [address] [place] [address] Coronary artery disease involving [place] coronary artery of [place] heart without angina pectoris; Chest pain, unspecified type; Shortness of breath; Paroxysmal atrial fibrillation (CMS/HCC); Mixed hyperlipidemia; Left ventricular hypertrophy; Chronic fatigue Discharge Disposition: Home or Self Care Social [...] 80 MG tabletIndication s:Coronary artery disease involving [place] coronary artery of [place] heart without angina pectoris TAKE 1 TABLET [...] Description 08/08/2024 1:00 PM EST Office Visit [facility] [address] [facility], [address] [place] [address] Diana Ahumada MD [address] [place] [address] 12/30/2024 10:15 AM EDT Office Visit [facility] [address] [place] [address] Luis Olivares MD [address] [address] documented as of this encounter Procedures Procedure Name Priority Date/Time Associated Diagnosis Comments ECHO, ADULT TRANSTHORACIC COMPLETE Routine 06/12/2023 12:37 PM EDT Coronary artery disease involving [place] coronary artery of [place] heart without angina pectoris Chest pain, unspecified type Shortness of breath Paroxysmal atrial fibrillation (CMS/HCC) Mixed hyperlipidemia Left ventricular hypertrophy Chronic fatigue documented in this encounter Results * ECHO, ADULT TRANSTHORACIC [...] CASSIDY ISCV Weight 116.6 CASSIDY ISCV PA SD(ACCEL) 42.6 mmHg CASSIDY ISCV Baseline Systolic BP [...] is no recent study available for direct [id number] comparison. ?? Left Ventricle The left ventricle [...] is no recent study available for direct scla-[id number]-[id number] comparison. us Say Arellano MD CV ECHO PROCEDURES Final Re sult documented in this encounter Visit Diagnoses Diagnosis Coronary artery disease involving [place] coronary artery of [place] heart without angina pectoris Chest pain, unspecified [...] documented as of this encounter Care Teams Air Brake Mechanic Relationship Specialty Start Date End Date Heladio Palm MD [address] [place] [address] PCP - General Internal Medicine 05/02/22 documented as of this encounter
--- OUTSIDE RECORDS SUMMARY | 2024-08-02 15:13 | XMS_ITS | Encounter Summary ---
Author Organization Healthcare Address [address] [place] [address] Care Team Providers Care Sky Line Yarder Name Role Phone Heladio Palm MD Primary Care Provider [phone] Reason for Visit * Reason Comments Shortness of Breath FOLLOW UP Encounter Details Date Type Department Care Team (Late st Contact Info) Description 06/12/2023 1:00 PM EDT Office Visit [facility] [address] [place] [address] Sammie East, PA [address] [place] [address] Moderate persistent asthma without complication (Primary Dx); Shortness of breath; Obstructive sleep apnea Social History Tobacco Use [...] Sign Reading Time Taken Comments Blood Pressure 91/61 06/12/2023 1:57 PM EDT Pulse 91 06/12/2023 12:51 PM EDT Temperature 36.4 ??C (97.5 ??F) 06/12/2023 12:51 PM E DT Respiratory Rate 18 06/12/2023 12:51 PM EDT Oxygen Saturation 94% 06/12/2023 12:51 PM EDT Inhaled Oxygen Concentration - - Weight 117 kg (257 lb 15 oz) 06/12/2023 12:51 PM EDT Height 157.5 cm (5' 2 ) 06/12/2023 12:51 PM EDT Body Mass Index 47.18 06/12/2023 12:51 PM EDT documented in this encounter Miscellaneous Notes * Progress Notes - Sammie East PA - 06/12/2023 1:00 PM EDT PULMONARY FOLLOW-UP NOTE Established patient: Follow-up for dyspnea History Of Present Illness Mirtha Barrios is a 73 y.o. years old female with PMHx of CAD post stent in LAD, Afib, left ventricular hypertrophy, chronic fatigue, asthma, HTN, DELL on BiPAP, history of Henoch-Schonlein purpura(2007) here for ongoing management. She reports she had the stomach bug with nausea/vomiting and diarrhea. She is now recovering and trying to eat and drink again. Still with persistent dyspnea with exertion, she reports she can't walkvery without getting short of breath. No recent hospitalization. She is awaiting Cardiac Rehab. Denies cough, sputum production, wheezing, fever/chills, chest tightness, hemoptysis, unintentional weight loss, night sweats. She is using Symbicort 2 puffs twice daily, though doesn't necessarily have significant improvementin her symptoms. Endorses significant seasonal allergies, cats, horses, dust mites. Takes Zyrtec one daily. Wears BiPAP with 1lpm bled into it- adherent to it nightly. History of Mukherjee's Esophagus, followswith GI annually, on PPI, symptoms well controlled for the most part. Interval History I can't breathe. This all started in 2019, rushed to ED in respiratory failure, CO2 extremely elevated, she was intubated, treated her with BiPAP. She has continued on a BiPAP with 1lpm of oxygen at night ever since. Reports she then had LAD stented in 2021 and dyspnea has persisted. Social History: Lives in [place], [place] with son, daughter in law and 3 grandchildren, 1 dog. in January 2023. No birds/chickens, no concern for mold/water damage, denies hot tub/jaccuzi use, denies down products. Previously worked at [employer] from [id number], prior to that worked for [employer]. Denies occupational exposure or history. Past 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 Past 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: Diagnosis Date Allergic purpura [...] system History of chronic bronchitis Past Surgical History Past Surgical History: Procedure Laterality Date BLADDER SURGERY N/A Bladder Surgery from [facility] CATARACT EXTRACTION N/A Cataract Extraction from [facility] CHOLECYSTECTOMY N/A Cholecystectomy from [facility] HYSTERECTOMY N/A Hysterectomy from [facility] OTHER SURGICAL HISTORY N/A Biopsy Skin from [facility] TOTAL ABDOMINAL HYSTERECTOMY N/A Total Abdominal Hysterectomy from [facility] Family History Family History Problem Relation Name Age of Onset Alzheimer's disease Mother Conversions - Other Mother Stroke Of The Left Anterior Cerebral Artery Heart disease Father Conversions - Other Father Myocardial Infarction Arrhythmias Other (lung mass) Father Social History reports that she quit smoking about 23 years ago. Her smoking use included cigarettes. She has a 7.00 pack-year smoking history. She has been exposed to tobacco smoke. She has never used smokeless tobacco. She reports that she does not currently use alcohol. She reports that she does not currently use drugs. Occupational History (If relevant) Immunizations: Immunization History Administered Date(s) Administered Influenza Vaccine, Quadrivalent, Adjuvanted 06/27/2021 Influenza, Unspecified 06/27/2011, 06/21/2012, 06/23/2013, 07/06/2014, 06/19/2015, 06/19/2016 Influenza, high-dose, quadrivalent 09/17/2018, 09/17/2018, 06/04/2020 Influenza, injectable, quadrivalent, preservative free 06/05/2017 Influenza, trivalent, adjuvanted 06/24/2019 Moderna COVID-19 Vaccine (Histology Technologist) 12+ years 10/04/2020, 11/01/2020, 06/27/2021 Pneumococcal Conjugate PCV 13 05/27/2016 Zoster, live 04/23/2017 VACCINE/DOSE DATE DATE DATE DATE DATE DATE Flu 06/19/2015 06/19/2016 06/05/2017 09/17/2018 06/24/2019 06/04/2020 Tetanus Pneumovax 05/27/2016 Shingles 04/23/2017 Allergies Codeine, Iv contrast, Penicillins, Sulfa drugs, Sulfamethoxazole-trimethoprim, Ciprofloxacin, Metformin, and Rivaroxaban Medications Current Outpatient Medications Medication Sig Dispense Refill atorvastatin (Lipitor) 80 MG tablet TAKE 1 TABLET BY MOUTH 1 TIME EACH DAY. 90 tablet 3 biotin 1000 MCG tablet 1 (one) time each day at the same time. carvedilol (Coreg) 25 MG tablet TAKE 1 TABLET BY MOUTH TWICE A DAY FOR 30 DAYS cholecalciferol (Vitamin D3) 25 MCG (1000 UT) tablet Take 1 tablet (1,000 Units) by mouth 1 (one) time each day. clopidogrel (Plavix) 75 MG tablet Take 1 tablet (75 mg) by mouth 1 (one) time each day. dapagliflozin (Farxiga) 10 MG tablet Take 1 tablet (10 mg) by mouth 1 (one) time each day. gabapentin (Neurontin) 300 MG capsule TAKE 1 CAPSULE BY MOUTH TWICE A DAY FOR NEUROPATHY SYMPTOMS levothyroxine (Synthroid, Levoxyl) 100 MCG tablet Take 1 tablet (100 mcg) by mouth 1 (one) time each day. losartan (Cozaar) 50 MG tablet TAKE 1 TABLET BY MOUTH EVERY DAY FOR 30 DAYS magnesium oxide (Mag-Ox) 400 (240 Mg) MG tablet Take 1 tablet (400 mg) by mouth 1 (one) time each day. metFORMIN (Glucophage) 500 MG tablet Take 1 tablet (500 mg) by mouth 2 (two) times a day with meals. mupirocin (Bactroban) 2 % ointment pantoprazole (Protonix) 40 MG EC tablet 1 (one) time each day at the same time. triamterene-hydroCHLOROthiazide (Dyazide) 37.5-25 MG capsule Take 1 capsule by mouth 3 (three) times a day. FOR 90 DAYS venlafaxine (Effoxor) 100 MG tablet TAKE 1 TABLET BY MOUTH TWICE A DAY FOR 90 DAYS Zinc Sulfate 140 (50 Zn) MG tablet 1 (one) time each day at the same time. No current facility-administered medications for this visit. Items reviewed Tobacco Allergies Meds Problems Med Hx Surg Hx Fam Hx Review of Systems Constitutional: Negative for chills, fever and unexpected weight change. HENT: Positive for congestion and ear pain. Respiratory: Positive for shortness of breath. Negative for cough and wheezing. Cardiovascular: Negative for chest pain and leg swelling. Gastrointestinal: Negative for diarrhea, nausea and vomiting. Skin: Negative for color change and rash. Last Recorded Vitals Visit Vitals BP 91/61 Pulse 91 Temp 36.4 ??C (97.5 ??F) Resp 18 Ht 1.575 m (5' 2 ) Wt 117 kg (257 lb 15 oz) SpO2 94% BMI 47.18 kg/m?? Smoking Status Former BSA 2.26 m?? Physical Exam Vitals and nursing note reviewed. Constitutional: General: She is not in acute distress. Appearance: Normal appearance. She is well-developed. She is not diaphoretic. HENT: Head: Normocephalic and atraumatic. Right Ear: Tympanic membrane normal. There is no impacted cerumen. Left Ear: Tympanic membrane normal. There is no impacted cerumen. Nose: No congestion. Mouth/Throat: Mouth: Mucous membranes are moist. Pharynx: No posterior oropharyngeal erythema. Eyes: General: Lids are normal. No scleral icterus. Conjunctiva/sclera: Conjunctivae normal. Pupils: Pupils are equal, round, and reactive to light. Cardiovascular: Rate and Rhythm: Normal rate and regular rhythm. Heart sounds: Normal heart sounds. No murmur heard. Pulmonary: Effort: Pulmonary effort is normal. No respiratory distress. Breath sounds: Normal breath sounds. No wheezing or rales. Abdominal: General: Abdomen is flat. Palpations: Abdomen is soft. There is no mass. Tenderness: There is no abdominal tenderness. Musculoskeletal: General: No swelling or tenderness. Normal range of motion. Cervical back: Normal range of motion and neck supple. Right lower leg: No edema. Left lower leg: No edema. Skin: General: Skin is warm and dry. Capillary Refill: Capillary refill takes less than 2 seconds. Neurological: Mental Status: She is alert and oriented to person, place, and time. Cranial Nerves: No cranial nerve deficit. Psychiatric: Mood and Affect: Mood normal. Behavior: Behavior normal. Thought Content: Thought content normal. Judgment: Judgment normal. Results: 05/06/23: CMP glu 211, Cr 2.00, otherwise normal CBC with diff WBC 11.34, Hgb 14, Eos 370 TSH WNL VitaminD 39.8 Eos: Imaging: PFT: I have personally interpreted the test results 06/12/23 FEV1: 0.96 (51%) --> post BD 1.07 (change 111ml, 12%) FVC: 1.47 (60%) --> post BD 1.56 (change 110ml, 7%) FEV1/FVC: 66 (84%) T.54 (79%) DLCO: 12.52 (72%) Impression: Spirometry: Reduced FEV1 and FVC with a normal ratio and normal TLC consistent with a non- specific spirometry pattern. There is no significant positive bronchodilator response. Lung Volumes: Elevated RV/TLC is suggestive of air trapping. A non specific spirometric pattern in the setting ofair trapping can be suggestive of underlying small airways disease. Diffusion Capacity: Diffusion capacity uncorrected for Hb is mildly reduced. A reduced DLCO with a low VA and normal KCO is a pattern that may suggest loss of alveolar capillary structure with loss of lung volume in conditions such as emphysema and ILD. Date FEV1 FVC FEV1/FVC TLC DLCO Six Minute Walk Test: Six minute walk test was completed on room air according to ATS standards. Baseline oxygen saturation was 94% on on room air. There was no desaturation with submaximal exercise. Lowest oxygen saturation with exercise was 88%. Jose score for dyspnea was 3 at baseline and 5 with exercise. 6MWD was 155 m which was 50% predicted. Previous 6MWD on 02/04/17 was 291 m. Visit Diagnoses: 1. Moderate persistent asthma without complication 2. Shortness of breath 3. Obstructive sleep apnea Assessment/Plan 73 y.o. female with: 1) Dyspnea on exertion -Echocardiogram reveals LVEF 55-60%, diastolic function normal. Right ventricular systolic functionis normal. No significant valve regurgitation or stenosis seen. -PFTs show no obstruction, no significant BD response. There is no evidence of restriction with a mildly reduced DLCO -endorses dyspnea that started after her hospitalization in 2019, though reports she feels like it has been more persistent since her cardiac stent in 2021. -never got CXR, requests it be done [facility]. -Six Minute Walk without significant oxygen desaturations. -can continue Symbicort inhaler 2 puffs twice daily. While she has no significant BD response, she reports long history of asthma. She does have air trapping present on PFT with nonspecific spirometry so may have a component of small airways disease. 2) Obstructive Sleep Apnea -wears BiPAP nightly with 1lpm of oxygen bled into it. -has not followed with Sleep Medicine since her BiPAP was issued post hospitalization in 2019. -Awaiting Sleep Medicine evaluation 3) Obesity -Complicates all aspects of care -BMI 47.14 -Encourage diet/exercise as able 4) CAD post stent in LAD, Afib -Follows with Cardiology regularly, Dr. Arellano -Echocardiogram showed LVEF 55-60%. Diastolic function normal. Right ventricle is normal. No significant valve regurgitation or stenosis present. -she is starting Cardiac Rehab in [facility]. -requests that we send Six Minute Walk Test to [facility]- Cardiac and Pulmonary Rehab Pulmonary health maintenance - PCV-20 - encouraged Prevnar 20 - PCV-13 (prevnar) - 2016 - Influenza vaccine - she has appt for Influenza vaccination for 2022/2023 season - SARS-CoV-2 vaccination (COVID vaccination) - has received COVID 19 vaccination. Follow up: 4 months Diagnoses and all orders for this visit: Moderate persistent asthma without complication Shortness of breath - XR Chest 2 Views; Future Obstructive sleep apnea I spent 55 minutes performing all or some of the following: Reviewing the history , performing an examination and evaluation, entering clinical information into the EHR, interpreting the results, counseling family/patient/caregiver, reviewing x-rays and laboratories, ordering the medications, testsand procedures, referring and communicating with consulting health client care representative and care coordination. HEIDI Morrison [facility] [address] [facility] [facility] [address] Dept: [phone] Dept Loc: [phone] Loc Note to patient: [facility] [...] Nephrology, Bone & Mineral Metabolism [address], [address] [place] [address] Diana Ahumada MD [address] [place] [address] 12/30/2024 10:15 AM EDT Office Visit [facility] [address] [place] [address] Luis Olivares MD [address] [address] Scheduled Orders Name Type Priority Associated Diagnoses Orde r Schedule XR Chest 2 Views Imaging Routine Shortness of breath Expected: 06/12/2023 (Approximate), Expires: 11/10/2024 documented as of this encounter Visit Diagnoses Diagnosis Moderate persistent asthma without complication- Primary Shortness of breath Obstructive sleep apnea Obstructive sleep apnea (adult) (pediatric) documented in this encounter Additional Health Concerns Assessment Noted Time PHQ-9 Depression Total Score: 12 023 12:53 PM EDT A fall risk assessment has been complete d for the patient 06/12/2023 12:56 PM EDT A Body Mass Index follow-up plan has been documented for the patient 06/12/2023 1:57 PM EDT documented as of this encounter Care Teams Sky Line Yarder Relationship Specialty Start Date End Date Heladio Palm MD [address] [place] [address] PCP - General Internal Medicine 05/02/22 documented as of this encounter
--- OUTSIDE RECORDS SUMMARY | 2024-08-02 15:13 | XMS_ITS | Encounter Summary ---
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 TAKE 1 TABLET [...] 08/08/2024 1:00 PM EST Office Visit [facility] [address], [address] [place] [address] Diana Ahumada MD [address] [place] [address] 12/30/2024 10:15 AM EDT Office Visit [facility] [address] [place] [address] Luis Olivares MD [address] [place] [address] documented as of this encounter Procedures Procedure Name Priority Date/Time Associated Diagnosis Comments HC SPIROGRAM W/6 MIN WALK Routine 06/12/2023 11:24 AM EDT Shortness of breath documented in this encounter Results * Pulmonary function test (06/12/2023 11:24 AM EDT) [id number] 1.58 L 06/12/2023 10:53 AM EDT VYAIRE PFT ECE5GRP 1.47 L 06/12/2023 10:53 AM EDT VYAIRE [...] 06/12/2023 10:53 AM EDT VYAIRE PFT FVC PREDAUTH US_Quanjer GLI (2012) 06/12/2023 10:53 AM EDT VYAIRE PFT FVC Z-SCORE -2.34 -2.07 06/12/2023 10:53 AM EDT VYAIRE PFT YLP42ARBR 1.07 L 06/12/2023 10:53 AM EDT VYAIRE PFT FEV1 PRE 0.96 L 06/12/2023 10:53 AM EDT VYAIRE PFT FEV1 PRED 1.88 06/12/2023 10:53 AM EDT VYAIRE PFT FEV1 LLN 1.35 06/12/2023 10:53 AM EDT VYAIRE PFT CLB4GLGGPQPXT -2.77 06/12/2023 10:53 AM EDT VYAIRE PFT FEV1_Pre%Pred 51 % % 06/12/2023 10:53 AM EDT VYAIRE PFT JCW8GESQUXQEPI -2.45 06/12/2023 10:53 AM EDT VYAIRE PFT KVN5PORS%PRED 57 % % 06/12/2023 10:53 AM EDT VYAIRE PFT PKI7LFNF 111.00 06/12/2023 10:53 AM EDT VYAIRE PFT FEV1%CHG 12 % % 06/12/2023 10:53 AM EDT VYAIRE PFT FEV1 PREDAUTH US_Quanjer GLI (2011) 06/12/2023 10:53 AM EDT VYAIRE PFT FEV1 Z-SCORE -2.77 -2.45 06/12/2023 10:53 AM EDT VYAIRE PFT QTY3WFG9QSKA 68.17 % 06/12/2023 10:53 AM EDT VYAIRE PFT FEV1/FVC PRE 65.71 % 06/12/2023 10:53 AM EDT VYAIRE PFT WSP5VMPWJUK 78 06/12/2023 10:53 AM EDT VYAIRE PFT CUG0ZBYONV 64 06/12/2023 10:53 AM EDT VYAIRE PFT IIC9CZKSVMLYDYBS -1.47 06/12/20 23 10:53 AM EDT VYAIRE PFT YMQ1GRJCLM%PRED 84 % % 10:53 AM EDT VYAIRE PFT WYZ7YTDTLECIYVTIQ -1.19 023 10:53 AM EDT VYAIRE PFT OWL3LEWJALH%PRED 87 % % 06/12/20 10:53 AM EDT VYAIRE PFT VOE0EGIHUNC 2455 06/12/2023 10:53 AM EDT VYAIRE PFT DOU9YHZ%CHG 4 % % 06/12/2023 10:53 AM EDT VYAIRE PFT VQL8TQYPKVWZ US_Quanjer GLI (2011) 06/12/2023 10:53 AM EDT VYAIRE PFT GIK9IDMYWLJPK -1 -1 06/12/2023 10:53 AM EDT VYAIRE PFT XYD13-99%_POST 0.56 L/s 06/12/2023 10:53 AM EDT VYAIRE PFT DUR71-13% PRE 0.49 L/s 06/12/2023 10:53 AM EDT VYAIRE PFT IQN00-09%_Pred 1.61 06/12/2023 10:53 AM EDT VYAIRE PFT KDD2542%LLN 0.71 06/12/2023 10:53 AM EDT VYAIRE PFT MDU1243%PREZSCORE -2.23 023 10:53 AM EDT VYAIRE PFT YAP7821%PRE%PRED 30 % % 06/12/20 10:53 AM EDT VYAIRE PFT IHK8503%POSTZSCORE -2.03 2022 10:53 AM EDT VYAIRE PFT SVB5642%POST%PRED 35 % % 023 10:53 AM EDT VYAIRE PFT LYM2733%CHNG 73.00 06/12/2023 10:53 AM EDT VYAIRE PFT JJZ9881%%CHG 15 % % 06/12/2023 10:53 AM EDT VYAIRE PFT OZR7723%PREDAUTH US_Quanjer GLI (2011) 06/12/2023 10:53 AM EDT VYAIRE PFT LCB2YJKG 4.50 L/s 06/12/2023 10:53 AM EDT VYAIRE [...] (1998) 06/12/2023 10:53 AM EDT VYAIRE PFT RAKOVBFQPMSDYWBV3RDH 12.52 ml/(min* mmHg) 06/12/2023 10:53 AM EDT VYAIRE PFT DLCOSINGLEBREATH PRED 17.29 06/12/2023 10:53 AM EDT VYAIRE PFT DLCOSINGLEBREATH LLN 12.91 1002/2023 10:53 AM EDT VYAIRE PFT DLCOSINGLEBREATH Z-SCORE -1.81 06/12/2023 10:53 AM EDT VYAIRE PFT DLCOSINGLEBREATH % PRED 72.4 % 06/12/2023 10:53 AM EDT VYAIRE PFT DLCOSINGLEBREATH PREDAUT Stanojevic TLCO GLI (2019) 06/12/2023 10:53 AM EDT VYAIRE PFT DLCOSINGLEBREATH Z-SCORE -1.81 06/12/2023 10:53 AM EDT VYAIRE PFT OYVCSSBQIIJTOWTXD1EQ E 12.52 ml/(min* mmHg) 06/12/2023 10:53 AM EDT VYAIRE PFT DLCOCSINGLEBREATH PRED 17.29 06/12/2023 10:53 AM EDT VYAIRE PFT DLCOCSINGLEBREATH LLN 12.91 06/12/2023 10:53 AM EDT VYAIRE PFT DLCOCSINGLEBREATH Z-SCORE -1.81 06/12/2023 10:53 AM EDT VYAIRE PFT DLCOCSINGLEBREATH % PRED 72.4 % 06/12/2023 10:53 AM EDT VYAIRE PFT DLCOCSINGLEBREATH PREDAUT Stanocastillovic TLCO GLI (2019) 06/12/2023 10:53 AM EDT VYAIRE PFT RKXTUN3RLY 4.56 ml/(min* mmHg*L) 06/12/2023 10:53 AM EDT VYAIRE PFT DLCOVAPRED 4.24 06/12/2023 10:53 AM EDT VYAIRE PFT DLCOVALLN 3.22 06/12/2023 10:53 AM EDT VYAIRE PFT DLCOVAZSCORE 0.48 06/12/2023 10:53 AM EDT VYAIRE PFT DLCOVA%PRED 107.6 % 06/12/2023 10:53 AM EDT VYAIRE PFT DLCOVAPREDAUT Stanocastillovic TLCO GLI (2019) 06/12/2023 10:53 AM EDT VYAIRE PFT DLCOVAZSCORE 0.48 06/12/2023 10:53 AM EDT VYAIRE PFT VZWCQFCVC3UCL 4.56 ml/(min* mmHg*L) 06/12/2023 10:53 AM EDT VYAIRE PFT DLCOC SB/VA PRED 4.24 06/12/20 10:53 AM EDT VYAIRE PFT DLCOC SB/VA LLN 3.22 10:53 AM EDT VYAIRE PFT DLCOC SB/VA Z-SCORE 0.48 06/12 10:53 AM EDT VYAIRE PFT DLCOC SB/VA % PRED 107.6 % 2022 10:53 AM EDT VYAIRE PFT DLCOC SB/VA PREDAUTH Stanocastillovic TLCO GLI (2019) 06/12/2023 10:53 AM EDT VYAIRE PFT DLCOC SB/VA Z-SCORE 0.48 06/12 10:53 AM EDT VYAIRE PFT JKDUZXHLWEDGAC8DRR 2.74 L 2022 10:53 AM EDT VYAIRE PFT VASINGLEBREATH PRED 4.06 06/12 10:53 AM EDT VYAIRE PFT VASINGLEBREATH LLN 3.23 2022 10:53 AM EDT VYAIRE PFT VASINGLEBREATH Z-SCORE -2.72 06/12/2023 10:53 AM EDT VYAIRE PFT VASINGLEBREATH % PRED 67.5 % 06/12/2023 10:53 AM EDT VYAIRE PFT VASINGLEBREATH PREDSHASHI Patrickmacy TLCO GLI (2019) 06/12/2023 10:53 AM EDT VYAIRE PFT VASINGLEBREATH Z-SCORE -2.72 06/12/2023 10:53 AM EDT VYAIRE PFT ENCSTKQUYGIFPEI3VBD 1.63 L 06/12 10:53 AM EDT VYAIRE PFT IVCSINGLEBREATH PRED 2.43 02/2023 10:53 AM EDT VYAIRE PFT IVCSINGLEBREATH LLN 1.75 06/12 10:53 AM EDT VYAIRE PFT IVCSINGLEBREATH Z-SCORE -1.95 06/12/2023 10:53 AM EDT VYAIRE PFT IVCSINGLEBREATH % PRED 66.8 % 06/12/2023 10:53 AM EDT VYAIRE PFT IVCSINGLEBREATH PREDAUT Naomi GLI (2011) 06/12/2023 10:53 AM EDT VYAIRE PFT LQA9RDR 3.54 L 06/12/2023 10:53 AM EDT VYAIRE [...] % 06/12/2023 10:53 AM EDT VYAIRE PFT ICPREDAUTH [facility] Lung volumes GLI (2019)__ 06/12/2023 10:53 AM EDT VYAIRE PFT EUUGUBPM6WDI 2.33 L 06/12/2023 10:53 AM EDT VYAIRE PFT FRCPLETH PRED 2.48 06/12/2023 10:53 AM EDT VYAIRE PFT FRCPLETH LLN 1.77 06/12/2023 10:53 AM EDT VYAIRE PFT FRCPLETH ULN 3.38 06/12/2023 10:53 AM EDT VYAIRE PFT FRCPLETH Z-SCORE -0.32 06/12/20 10:53 AM EDT VYAIRE PFT FRCPLETH % PRED 93.8 % 10:53 AM EDT VYAIRE PFT FRCPLETH [facility] Lung volumes GLI (2019)__ 06/12/2023 10:53 AM EDT VYAIRE PFT BPU6WJY 0.22 L 06/12/2023 10:53 AM EDT VYAIRE PFT ERVPRED 0.60 06/12/2023 10:53 AM EDT VYAIRE PFT ERVLLN 0.14 06/12/2023 10:53 AM EDT VYAIRE PFT ERVULN 1.33 06/12/2023 10:53 AM EDT VYAIRE PFT ERV Z-SCORE -1.28 06/12/2023 10:53 AM EDT VYAIRE PFT ERV%PRED 36.9 % 06/12/2023 10:53 AM EDT V[facility]AIRE PFT ERVPREDAUTTr[facility] Lung volumes GLI (2019)__ 06/12/2023 10:53 AM EDT VYAIRE PFT RV0PRE 2.07 L 06/12/2023 10:53 AM EDT VYAIRE PFT RVPRED 1.84 06/12/2023 10:53 AM EDT VYAIRE PFT RVLLN 1.09 06/12/2023 10:53 AM EDT VYAIRE PFT RVULN 2.84 06/12/2023 10:53 AM EDT VYAIRE PFT RVZSCORE 0.42 06/12/2023 10:53 AM EDT VYAIRE PFT RV%PRED 112.4 % 06/12/2023 10:53 AM EDT VYAIRE PFT RVPREDAUTTr[facility] Lung volumes GLI (2019)__ 06/12/2023 10:53 AM EDT VYAIRE PFT RV%MXI6NWC 58.56 % 06/12/2023 10:53 AM EDT VYAIRE PFT RV%TLCPRED 42 06/12/2023 10:53 AM EDT VYAIRE PFT RV%TLCLLN 29 06/12/2023 10:53 AM EDT VYAIRE PFT RV%TLCULN 56 06/12/2023 10:53 AM EDT VYAIRE PFT RV%TLCZSCORE 1.98 06/12/2023 10:53 AM EDT VYAIRE PFT RV%TLC%PRED 140.4 % 06/12/2023 10:53 AM EDT VYAIRE PFT RV%TLCPREDAUTH Gandara Lung volumes GLI (2020)__ 06/12/2023 10:53 AM EDT VYAIRE PFT YJG1VOY 2.46 L 06/12/2023 10:53 AM EDT VYAIRE PFT Anatomical Region Laterality Modality PFT 06/12/2023 10:1 1 AM EDT Narrative 06/13/2023 11:04 AM EDT Pulmonary Function Testing Report Mirtha Lester Pack 73 y.o. underwent pulmonary function testing today at the [facility]. The patient underwent spirometry, lung volumes [...] There are no prior studies for comparison. Sammie GORDON PFT ORDERABLES Final Result documented [...] documented as of this encounter Care Teams Tube Sizer Operator Relationship Specialty Start Date End Date Heladio Palm MD [address] [place] [address] PCP - General Internal Medicine 05/02/22 documented as of this encounter
--- OUTSIDE RECORDS SUMMARY | 2024-08-02 15:13 | XMS_ITS | Encounter Summary ---
Author Organization [facility] Address [address] [id number] Care Team Providers Care Swatch Maker Name Role Phone Heladio Palm MD Primary Care Provider + [phone] Reason for Visit * Reason Onset Date Comments Appointment 05/19/2023 Encounter Details Date Type Department Care Team ([facility] st Contact Info) Description 05/19/2023 Telephone [facility] Nephrology, Bone & Mineral Metabolism [address] [facility], [address] [place] [address] Lana Salcedo, RN [facility]ULAR [facility] INTERVENTIONAL RADIOLOGY Appointment Social History Tobacco Use Types Packs/Day Years [...] encounter Miscellaneous Notes * Telephone Encounter - Lana Owusu RN - 05/21/2023 11:04 AM EDT Patient confirmed appt. Patient requested to have urine labs completed morning of appt. Patient wanted to inform Dr. 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 Informed Dr. Reynolds * Telephone Encounter - Lana Owusu RN - 05/19/2023 2:15 PM EDT Attempted to reach patient to discuss appt confirmation and urine labs needed. Requested patient toreturn call. documented in this encounter Plan of Treatment Upcoming Encounters Date Type Department Care Team (Late st Contact Info) Description 08/08/2024 1:00 PM EST Office Visit [facility] Nephrology, Bone & Mineral Metabolism [address] [facility], [address] [place] [address] Diana Ahumada MD [address] [place] [address] 12/30/2024 10:15 AM EDT Office Visit [facility] [address] [facility] [place] [address] Luis Olivares MD [address] [place] [address] documented as of this encounter [...] documented as of this encounter Care Teams Swatch Maker Relationship Specialty Start Date End Date Heladio Palm MD [address] [place] [address] PCP - General Internal Medicine 05/02/22 documented as of this encounter
--- OUTSIDE RECORDS SUMMARY | 2024-08-02 15:13 | XMS_ITS | Encounter Summary ---
Author Organization [facility] Address [address] [place] [address] Care Team Providers Care Pool Table Mechanic Name Role Phone Heladio Palm MD Primary Care Provider [phone] Encounter Details Date Type Department Care Team (Late st Contact Info) Description 05/19/2023 Orders Only [facility] Nephrology, Bone & Mineral Metabolism [address], [address] [place] [address] Rodolfo Contreras MD [address] [place] [address] Elevated serum creatinine (Primary Dx) Social History [...] Description 08/08/2024 1:00 PM EST Office Visit [facility] Nephrology, Bone & Mineral Metabolism [address], [address] [place] [address] Diana Ahumada MD [address] [place] [address] [place] [id number] 12/30/2024 10:15 AM EDT Office Visit [facility] Care [address] [place] [address] Luis Olivares MD [address] [place] [address] documented as of this encounter [...] documented as of this encounter Care Teams Pool Table Mechanic Relationship Specialty Start Date End Date Heladio Palm MD [address] [place] [address] PCP - General Internal Medicine 05/02/22 documented as of this encounter
--- OUTSIDE RECORDS SUMMARY | 2024-08-02 15:13 | XMS_ITS | Encounter Summary ---
Author Organization [facility] Address [address] [place] [address] Care Team Providers Care Train Caller Name Role Phone Heladio Palm MD Primary Care Provider [phone] Encounter Details Date Type Department Care Team (Latest Contact Info) Description 10/02/2022 Travel Social History Tobacco Use Types Packs/Day [...] suspected to have Coronavirus/COVID-19? No / Unsure 10/02/2022 9:56 AM EST documented as of this encounter Plan of Treatment Upcoming Encounters Date Type Department Care Team (Late st Contact Info) Description 08/08/2024 1:00 PM EST Office Visit [facility] Nephrology, Bone & Mineral Metabolism [address] [facility], [address] [place] [address] Diana Ahumada MD [address] [place] [address] 12/30/2024 10:15 AM EDT Office Visit [facility] [address] [place] [address] Luis Olivares MD [address] [place] [address] documented as of this encounter Visit Diagnoses Not on filedocumented in this encounter Additional Health Concerns Assessment Noted Time A fall risk assessment has been complete d for the patient 10/02/2022 10:05 AM EST A Body Mass Index follow-up plan has been documented for the patient 10/02/2022 1:51 PM EST documented as of this encounter Care Teams Train Caller Relationship Specialty Start Date End Date Heladio Palm MD [address] [place] [address] PCP - General Internal Medicine 05/02/22 documented as of this encounter
--- OUTSIDE RECORDS SUMMARY | 2024-08-02 15:13 | XMS_ITS | Encounter Summary ---
Author Organization [facility] Address [address] [place] [address] Care Team Providers Care Steam Blocker Name Role Phone Heladio Palm MD Primary Care Provider [phone] Encounter Details Date Type Department Care Team (Latest Contact Info) Description 08/19/2022 Travel Social History Tobacco Use Types Packs/Day [...] 1:00 PM EST Office Visit [facility] Nephrology, Bone & Mineral Metabolism [address] [facility], [address] [place] [address] Diana Ahumada MD [address] [place] [address] 12/30/2024 10:15 AM EDT Office Visit [facility] Eye Care [address] [place] [address] Luis Olivares MD [address] [place] [address] documented as of this encounter Visit Diagnoses Not on filedocumented in this encounter Additional Health Concerns Assessment Noted Time A fall risk assessment has been complete d for the patient 07/24/2022 10:06 AM EST documented as of this encounter Care Teams Steam Blocker Relationship Specialty Start Date End Date Heladio Palm MD [address] [place] [address] PCP - General Internal Medicine 05/02/22 documented as of this encounter
--- OUTSIDE RECORDS SUMMARY | 2024-08-02 15:13 | XMS_ITS | Encounter Summary ---
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 Procedures Stress Test, Adult Vasodilator Say Arellano MD [address] [place] [address] Phone: tel: fax: Referral ID Status Reason Start Date Expiration Date Visits Re quested Visits Authorized [id number] Closed 07/24/2022 01/23/2024 1 1 Reason for Visit * Imaging (Routine) - Closed Specialty Diagnoses / Procedures Referred By Esequiel hall Referred To Contact Cardiology Diagnoses 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 Procedures Stress Test, Adult Vasodilator Say Arellano MD [address] [place] [address] Phone: tel: fax: Referral ID Status Reason Start Date Expiration Date Visits Re quested Visits Authorized [id number] Closed 07/24/2022 01/23/2024 1 1 Encounter Details Date Type Department Care Team (Latest Contact Info) Description 08/19/2022 10:00 AM EST Hospital Encounter [facility] [address] [facility], [place] [address] 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 Discharge Disposition: Home [...] AM EST documented as of this encounter Medications at [...] 80 MG tabletIndication s: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 Take 1 tablet [...] 1:00 PM EST Office Visit [facility] Nephrology, Bone & Mineral Metabolism [address] [facility], [address] [place] [address] Diana Ahumada MD [address] [place] [address] 12/30/2024 10:15 AM EDT Office Visit [facility] Eye Care [address] [place] [address] Luis Olivares MD [address] [address] documented as of this encounter Procedures Procedure Name Priority Date/Time Associated Diagnosis Comments STRESS TEST, ADULT VASODILATOR Routine 08/19/2022 12:59 PM EST 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 For MPI results, please see separate PET report. ?? Stress Findings A pharmacological stress test was performed. The pharmacologic test was performed using regadenoson. The patient started with a baseline heart rate of 76bpm, and increased to 90bpm with stress pharmacologic agent. The patient's baseline blood pressure was 132/95, and changed to 140/65 with stress medication. The patient experienced no chest pain. The patient reached the end of the planned protocol. Stress ECG Baseline ECG: The baseline ECG shows normal sinus rhythm, normal axis and left ventricular hypertrophy. Baseline ECG shows non-specific ST segment deviation. Stress and Recovery ECG: Non specific ST/T abnormalities. A single premature atrial contraction presented during stress. There were no arrhythmias during recovery. ECG Conclusion: No ischemic ST segment changes occurred with stress. The stress test was performed under direct supervision of the reading technician telecommunication systems. 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 documented in this encounter Administered Medications Inactive Administered Medications - up to 3 most recent administrations Medication Order MAR Action Action Date Dose Rate Site aminophylline injection 75 mg 75 mg, Intravenous, Once, 1 dose, On Thu08/19/22 at 1315, Routine Given 08/19/2022 11:43 AM EST 75 mg regadenoson (Lexiscan) injection 0.4 mg 0.4 mg, Intravenous, Once, 1 dose, On Thu08/19/22 at 1315, Routine Given 08/19/2022 11:38 AM EST 0.4 mg documented in this encounter Additional Health Concerns Assessment Noted Time A fall risk assessment has been complete d for the patient 07/24/2022 10:06 AM EST documented as of this encounter Care Teams Financial Officer Relationship Specialty Start Date End Date Heladio Palm MD [address] [place] [address] PCP - General Internal Medicine 05/02/22 documented as of this encounter
--- OUTSIDE RECORDS SUMMARY | 2024-08-02 15:13 | XMS_ITS | Encounter Summary ---
Author Organization [facility] Address [address] [place] [address] Care Team Providers Care Fast Food Manager Name Role Phone Heladio Palm MD Primary Care Provider [phone] Encounter Details Date Type Department Care Team (Latest Contact Info) Description 06/09/2023 Travel Social History Tobacco Use Types Packs/Day [...] Description 08/08/2024 1:00 PM EST Office Visit [facility] [place] Nephrology, Bone & Mineral Metabolism [address] [facility], [address] [place] [address] Diana Ahumada MD [address] [place] [address] 12/30/2024 10:15 AM EDT Office Visit [facility] [address] [place] [address] Luis Olivares MD [address] [address] documented as of this encounter Visit Diagnoses [...] documented as of this encounter Care Teams Fast Food Manager Relationship Specialty Start Date End Date Heladio Palm MD [address] [place] [address] PCP - General Internal Medicine 05/02/22 documented as of this encounter
--- OUTSIDE RECORDS SUMMARY | 2024-08-02 15:13 | XMS_ITS | Encounter Summary ---
Author Organization [facility] Address [address] [id number] Care Team Providers Care Front Office Java Developer Name Role Phone Heladio Palm MD Primary Care Provider [phone] Reason for Visit * Reason Onset Date Comments HCN Clinical Concern/Question 05/18/2023 Encounter Details Date Type Department Care Team (Late st Contact Info) Description 05/18/2023 Telephone [facility] [place] [address] [place] [address] Bryan Allen MD [address] [place] [address] HCN Clinical Concern/Question Social History Tobacco Use Types Packs/Day Years [...] encounter Miscellaneous Notes * Telephone Encounter - Rina Leonardo - 05/19/2023 1:32 PM EDT Patient has been rescheduled for the . Left a message on her and her daughters phone,and also mailed out a reminder for appt time and date. * Telephone Encounter - Germaine Gaines - 05/18/2023 11:32 AM EDT Clinical Concern/Question Reason for Call: Patient needs to reschedule her 05/18 appointment. Best contact number: [phone] (home) Optimal time of day to reach caller: ANYTIME Additional comments/information from caller: None Note: Please do not reply to this message. Follow-up communication and further actions as a result of this message need to be communicated with the patient directly, if the patient is not active onMyChart. If the patient is active on MyChart, they will receive notification of the communication/outcome via POIt. documented in this encounter Plan of Treatment Upcoming Encounters Date Type Department Care Team (Late st Contact Info) Description 08/08/2024 1:00 PM EST Office Visit [facility] Nephrology, Bone & Mineral Metabolism [address] [facility], [address] [place] [address] Diana Ahumada MD [address] [place] [address] 12/30/2024 10:15 AM EDT Office Visit [facility] [address] [place] [address] Luis Olivares MD [address] [address] documented as of this encounter Visit Diagnoses Not on filedocumented in this encounter Additional Health Concerns Assessment Noted Time PHQ-9 Depression Total Score: 13 05/06/2 023 1:16 PM EDT A fall risk assessment has been complete d for the patient 05/06/2023 1:19 PM EDT A Body Mass Index follow-up plan has been documented for the patient 05/06/2023 2:37 PM EDT documented as of this encounter Care Teams Front Office Java Developer Relationship Specialty Start Date End Date Heladio Palm MD [address] [place] [address] PCP - General Internal Medicine 05/02/22 documented as of this encounter
--- OUTSIDE RECORDS SUMMARY | 2024-08-02 15:13 | XMS_ITS | Encounter Summary ---
Author Organization [facility] Address [address] [place] [address] Care Team Providers Care Corporate Counsel Name Role Phone Heladio Palm MD Primary Care Provider [phone] Reason for Visit * Reason Comments Med Refill Encounter Details Date Type Department Care Team (Late st Contact Info) Description 01/10/2023 Refill [facility] [place] [address] [facility] [place] [address] Tru Stout MD [address] [place] [address] Coronary artery disease involving elem coronary artery of elem heart without angina pectoris Social History Tobacco [...] 08/08/2024 1:00 PM EST Office Visit [facility] Nephrology, Bone & Mineral Metabolism [address] [facility], [address] [place] [address] Diana Ahumada MD [address] [place] [address] 12/30/2024 10:15 AM EDT Office Visit [facility] Care [address] [place] [address] Luis Olivares MD [address] [place] [address] documented as of this encounter Visit Diagnoses Diagnosis Coronary artery disease involving elem coronary artery of elem heart without angina pectoris documented in this encounter Additional Health Concerns Assessment Noted Time A fall risk assessment has been complete d for the patient 10/02/2022 10:05 AM EST A Body Mass Index follow-up plan has been documented for the patient 10/02/2022 1:51 PM EST documented as of this encounter Care Teams Corporate Counsel Relationship Specialty Start Date End Date Heladio Palm MD [address] [place] [address] PCP - General Internal Medicine 05/02/22 documented as of this encounter
--- OUTSIDE RECORDS SUMMARY | 2024-08-02 15:13 | XMS_ITS | Encounter Summary ---
Author Organization [facility] Address [address] [id number] Care Team Providers Care Arresting Gear Operator Name Role Phone Heladio Palm MD Primary Care Provider [phone] Encounter Details Date Type Department Care Team (Late Contact Info) Description 01/22/2023 Telephone [facility] [place] [address] [facility] [place] [address] Say Arellano MD [address] [place] [address] Social History Tobacco Use Types Packs/Day Years [...] 08/08/2024 1:00 PM EST Office Visit [facility] Nephrology, Bone & Mineral Metabolism [address] [facility], [address] [place] [address] Diana Ahumada MD [address] [place] [address] 12/30/2024 10:15 AM EDT Office Visit [facility] [address] [place] [address] Luis Olivares MD [address] [place] [address] documented as of this encounter Visit Diagnoses Not on filedocumented in this encounter Additional Health Concerns Assessment Noted Time A fall risk assessment has been complete d for the patient 10/02/2022 10:05 AM EST A Body Mass Index follow-up plan has been documented for the patient 10/02/2022 1:51 PM EST documented as of this encounter Care Teams Arresting Gear Operator Relationship Specialty Start Date End Date Heladio Palm MD [address] [place] [address] PCP - General Internal Medicine 05/02/22 documented as of this encounter
--- OUTSIDE RECORDS SUMMARY | 2024-08-02 15:13 | XMS_ITS | Encounter Summary ---
Author Organization [facility] Address [address] [id number] Care Team Providers Care Site Foreman Name Role Phone Heladio Palm MD Primary Care Provider [phone] Encounter Details Date Type Department Care Team ([facility] st Contact Info) Description 03/30/2023 Orders Only [facility] [address] [facility], [address] [place] [address] Angelina Valenzuela S/P coronary artery [...] * Progress Notes - Angelina Valenzuela - 03/30/2023 9:50 AM EDT Cardiac Rehab Note Patient Name: Mirtha Barrios Today's Date: 03/30/2023 Diagnosis Plan 1. S/P coronary artery stent placement Ambulatory referral to Cardiac Rehab Subjective: Ms. Trevon Barrios qualifies for outpatient cardiac rehab due to PCI in June 2022. She was referred from recent clinic visit. I spoke with her on the phone, she prefers to attend at [facility] and is excited about the incubator machine operator services. Will send referral to [place], they will contact Trevon Denis to discuss and schedule. Written/Dicated by Angelina Valenzuela on 03/30/23 at 9:52 AM. documented in this encounter Plan of Treatment Upcoming Encounters Date Type Department Care Team (Late st Contact Info) Description 08/08/2024 1:00 PM EST Office Visit [facility] Nephrology, Bone & Mineral Metabolism [address] [facility], [address] [place] [address] Diana Ahumada MD [address] [place] [address] 12/30/2024 10:15 AM EDT Office Visit [facility] [address] [facility] [place] [address] Luis Olivares MD [address] [place] [address] documented as of this encounter [...] documented as of this encounter Care Teams Site Foreman Relationship Specialty Start Date End Date Heladio Palm MD [address] [place] [address] PCP - General Internal Medicine 05/02/22 documented as of this encounter
--- OUTSIDE RECORDS SUMMARY | 2024-08-02 15:13 | XMS_ITS | Encounter Summary ---
Author Organization [facility] Address [address] [place] [address] Care Team Providers Care Dictating Transcribing Machine Servicer Name Role Phone Heladio Palm MD Primary Care Provider [phone] Encounter Details Date Type Department Care Team (Latest Contact Info) Description 05/06/2023 Travel Social History Tobacco Use Types Packs/Day [...] Description 08/08/2024 1:00 PM EST Office Visit [facility] Nephrology, Bone & Mineral Metabolism [address] [facility], [address] [place] [address] Diana Ahumada MD [address] [place] [address] 12/30/2024 10:15 AM EDT Office Visit [facility] [address] [place] [address] Luis Olivares MD [address] [address] documented as of this encounter Visit Diagnoses [...] documented as of this encounter Care Teams Dictating Transcribing Machine Servicer Relationship Specialty Start Date End Date Heladio Palm MD [address] [place] [address] PCP - General Internal Medicine 05/02/22 documented as of this encounter
--- OUTSIDE RECORDS SUMMARY | 2024-08-02 15:13 | XMS_ITS | Encounter Summary ---
Author Organization [facility] Address [address] [place] [address] Care Team Providers Care Associate Name Role Phone Heladio Palm MD Primary Care Provider [phone] Encounter Details Date Type Department Care Team (Latest Contact Info) Description 05/17/2023 Travel Social History Tobacco Use Types Packs/Day [...] Description 08/08/2024 1:00 PM EST Office Visit [facility] [place] Nephrology, Bone & Mineral Metabolism [address] [facility], [address] [place] [address] Diana Ahumada MD [address] [place] [address] 12/30/2024 10:15 AM EDT Office Visit [facility] [address] [place] [address] Luis Olivares MD [address] [address] documented as of this encounter Visit Diagnoses [...] documented as of this encounter Care Teams Associate Relationship Specialty Start Date End Date Heladio Palm MD [address] [place] [address] PCP - General Internal Medicine 05/02/22 documented as of this encounter
--- OUTSIDE RECORDS SUMMARY | 2024-08-02 15:13 | XMS_ITS | Encounter Summary ---
Author Organization Healthcare Address [address] [id number] Care Team Providers Care Electrical Installation Supervisor Name Role Phone Heladio Palm MD Primary Care Provider [phone] Encounter Details Date Type Department Care Team (Latest Contact Info) Description 10/02/2022 10:00 AM EST Office Visit [facility] [place] 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 (Primary Dx); Essential hypertension; Paroxysmal atrial fibrillation (CMS/HCC); Obstructive sleep apnea; Mixed hyperlipidemia Social History Tobacco Use Types Packs/Day Years [...] Sign Reading Time Taken Comments Blood Pressure 117/73 10/02/2022 10:10 AM EST Pulse 77 10/02/2022 10:10 AM EST Temperature - - Respiratory Rate 18 10/02/2022 10:10 AM EST Oxygen Saturation 93% 10/02/2022 10:10 AM EST Inhaled Oxygen Concentration - - Weight 122 kg (269 lb 6.4 oz) 10/02/2022 10:10 A M EST Height 154.9 cm (5' 1 ) 10/02/2022 10:10 AM EST Body Mass Index 50.9 10/02/2022 10:10 AM EST documented in this encounter Miscellaneous Notes * Progress Notes - Willow Fry PA - 10/02/2022 10:00 AM EST Images from the original note were not included. Note to patient: The Cures Act makes medical notes like these available to patients inthe interest of transparency. However, be advised this is a medical document. It is intended as jbag-aq-jquv communication. It is written in medical language and may contain abbreviations or verbiagethat are unfamiliar. It may appear blunt or direct. Medical documents are intended to carry relevant information, facts as evident, and the clinical opinion of the practitioner. Patient: Mirtha Barrios : 1950 PCP: Heladio Palm MD Mirtha Barrios is a 72 y.o. female who [facility] for a follow up on ASCVD after cardiac PET scan ordered for dyspnea. fair Cardiac Testing: -pAF (C=5/ H=3) with h/o [...] and remaining reviewed systems are negative. Objective Visit Vitals BP 117/73 Pulse 77 Resp 18 Ht 1.549 m (5' 1 ) Wt 122 kg (269 lb 6.4 oz) SpO2 93% BMI 50.90 kg/m?? Smoking Status Former BSA 2.29 m?? Physical Exam Physical Exam Vitals and [...] ASCVD--chronic stable -Jun 2022 MARYANN LAD at [facility] -reported persistent exertional dyspnea concerning for ischemia -cardiac PET negative for reversible ischemia with normal LV function -dyspnea likely NOT cardiac but related to pulmonary disease vs obesity vs sedentary lifestyle vs depression -continue clopidogrel/ASA/atorvastatin # HTN--chronic stable -normal EF with mod LVH and grade 1 DD -home readings within guidelines on carvedilol, losartan and amlodipine -no change to therapy - recommend daily sodium restriction to < 1500 mg # p AF--chronic stable -C=5 -on ASA only 2/2 previous retroperitoneal bleed -discussed Watchman device for TE prevention -she will consider and call, if interested # DELL on BiPAP--chronic stable -reports compliant use of nightly BiPAP # Obesity--chronic needs attention -BMI 50.9 -Discussed need for aggressive weight reduction for a target BMI < 30, following a reduced calorie Heart Healthy diet as well as daily CV exercise > 45 minutes I spent 30 minutes performing the following components of the encounter (on the day of the encounter): reviewing History, examining the patient, reviewing imaging and/or labs, counseling the patient and family/caregiver, communicating with other health animal care taker, care coordination, and entering clinical information in the EHR. Greater than 50% of the time spent on the encounter was face to face providing direct patient care, counseling for the patient/caregiver, and care coordination. Follow-up: 6 months HEIDI Walden 10/02/22 10:45 AM documented in this encounter Plan of Treatment Upcoming Encounters Date Type Department Care Team (Late st Contact Info) Description 08/08/2024 1:00 PM EST Office Visit [facility] Nephrology, Bone & Mineral Metabolism [address] [facility], [address] [place] [address] Diana Ahumada MD [address] [place] [address] 12/30/2024 10:15 AM EDT Office Visit [facility] [address] [place] [address] Luis Olivares MD [address] [address] documented as of this encounter Visit Diagnoses Diagnosis 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- Primary Essential hypertension Unspecified essential hypertension Paroxysmal atrial fibrillation (CMS/HCC) Atrial fibrillation Obstructive sleep apnea Obstructive sleep apnea (adult) (pediatric) Mixed hyperlipidemia documented in this encounter Additional Health Concerns Assessment Noted Time A fall risk assessment has been complete d for the patient 10/02/2022 10:05 AM EST A Body Mass Index follow-up plan has been documented for the patient 10/02/2022 1:51 PM EST documented as of this encounter Care Teams Electrical Installation Supervisor Relationship Specialty Start Date End Date Heladio Palm MD [address] [place] [address] PCP - General Internal Medicine 05/02/22 documented as of this encounter
--- OUTSIDE RECORDS SUMMARY | 2024-08-02 15:13 | XMS_ITS | Encounter Summary ---
Author Organization [facility] Address [address] [place] [address] Care Team Providers Care Competency Evaluated Nurse Aide Name Role Phone Heladio Palm MD Primary Care Provider [phone] Reason for Visit * Imaging (Routine) - Closed Specialty Diagnoses / Procedures Referred By Contac t Referred To Contact Radiology Diagnoses Coronary artery disease involving eek coronary artery of eek heart without angina pectoris Procedures PET/CT Myocardial Perfusion Imaging Multiple Say Arellano MD [address] [place] [address] Phone: tel: fax: Referral ID Status Reason Start Date Expiration Date Visits Re quested Visits Authorized [id number] Closed 07/24/2022 01/23/2024 2 2 Encounter Details Date Type Department Care Team (Latest Contact Info) Description 08/19/2022 10:01 AM EST - 08/19/2022 11:59 PM [facility] Hospital Encounter [facility] Radiology [address] [facility], [place] [address] Discharge Disposition: Home or Self Care Social [...] 80 MG tabletIndication s:Coronary artery disease involving eek coronary artery of eek heart without angina pectoris Take 1 tablet [...] Description 08/08/2024 1:00 PM EST Office Visit [email or web address]ph[facility], Bone & Mineral Metabolism [address] [facility] [facility], [address] [place] [address] Diana Ahumada MD [address] [place], [place] [id number] 12/30/2024 10:15 AM EDT Office Visit [facility] [address] [place] [address] Luis Olivares MD [address] [address] documented as of this encounter Procedures Procedure Name Priority Date/Time Associated Diagnosis Comments PET/CT MYOCARDIAL PERFUSION IMAGING MULTIPLE Routine 08/19/2022 11:57 AM EST Coronary artery disease involving eek coronary artery of eek heart without angina pectoris documented in this [...] COMMUNICATION: Per this written report. Dictated by Lenonx Cross MD on 08/19/2022 1:28 PM Signed by Lennox Cross MD on 08/19/2022 2:06 PM Narrative 08/19/2022 2:06 PM EST Exam/Procedure: PET/CT MYOCARDIAL PERFUSION IMAGING MULTIPLE ordered by SAY ARELLANO, [id number] EXAMINATION: Rb-82 Vasodilator PET MPI with CT [...] 1.09 LCx: 1.21 RCA: 1.06 Global: 1.12 Elmer (MFR): LAD: 1.61 LCx: 1.47 RCA: 1.73 Global: 1.60 CT FINDINGS: Multivessel coronary artery atherosclerotic calcification. Prior PCI. Within the focused field of view, evaluation of the visualized thoracic and upper abdominal structures demonstrates no additional abnormalities. Procedure Note Lennox Cross MD - 08/19/2022 Exam/Procedure: PET/CT MYOCARDIAL PERFUSION IMAGING MULTIPLE ordered bySAY ARELLANO, [id number] EXAMINATION: Rb-82 Vasodilator PET MPI with CT [...] 1.09 LCx: 1.21 RCA: 1.06 Global: 1.12 Elmer (MFR): LAD: 1.61 LCx: 1.47 RCA: 1.73 [...] 08/19/2022 2:06 PM us Say Arellano MD IM NM PROCEDURES Final Res ult documented in this encounter Visit Diagnoses Not on filedocumented in this encounter Additional Health Concerns Assessment Noted Time A fall risk assessment has been complete d for the patient 07/24/2022 10:06 AM EST documented as of this encounter Care Teams Competency Evaluated Nurse Aide Relationship Specialty Start Date End Date Heladio Palm MD [address] [place] [address] PCP - General Internal Medicine 05/02/22 documented as of this encounter
--- OUTSIDE RECORDS SUMMARY | 2024-08-02 15:14 | XMS_ITS | Encounter Summary ---
Author Organization [facility] Address [address] [place] [address] Care Team Providers Care Towboat Engineer Name Role Phone Heladio Palm MD Primary Care Provider [phone] Reason for Visit * Reason Onset Date Comments HCN - Patient Message 06/12/2022 Encounter Details Date Type Department Care Team ([facility] st Contact Info) Description 06/12/2022 Telephone [facility] [address], [address] [place] [address] Aj Cho [facility] [address] [facility] [address] [place] [address] HCN - Patient Message Social History Tobacco Use Types Packs/Day Years Used Date Smoking Tobacco: Former Comments Unknown Sex and Gender Information Value Date Recorded Sex Assigned at Not on file Legal Sex Female 8:26 PM EDT Gender Identity Not on file Sexual Orientation Not on file documented as of this encounter Miscellaneous Notes * Telephone Encounter - Dilcia Muir - 06/17/2022 9:55 AM EDT Called and spoke with patient this am, patient [place] been [place] of [place] on a trip and hasnt had good cell service. Patient stated that once she got back in town she would call the number provided on hervm yesterday to schedule with Palm.. Mp * Telephone Encounter - Dilcia Muir - 06/16/2022 12:24 PM EDT Have obtained records.. several attempts to call patient for scheduling.. letter was sent out and several vms left for patient to call back for apt.. MP * Telephone Encounter - Dilcia Muir - 06/12/2022 3:54 PM EDT I will obtain records from [facility].. will get patient scheduled with Dr. Shen * Telephone Encounter - Pauly Santoro - 06/12/2022 2:52 PM EDT Patient Phone Message Reason for Call: [place] patient has had an abnormal stress echo at [facility] 06/06. She is needing to have a heart cath and prefers to have done at . Best contact number and optimal time of day to reach caller: LV [phone] Note: Please do not reply to this [...] Description 08/08/2024 1:00 PM EST Office Visit [facility] Nephrology, Bone & Mineral Metabolism [address], [address] [place] [address] Diana Ahumada MD [address] [place] [address] 12/30/2024 10:15 AM EDT Office Visit [facility] [address] [place] [address] Luis Olivares MD [address] [place] [address] documented as of this encounter Visit Diagnoses Not on filedocumented in this encounter Additional Health Concerns Assessment Noted Time A fall risk assessment has been complete d for the patient 05/02/2022 10:15 AM EDT documented as of this encounter Care Teams Towboat Engineer Relationship Specialty Start Date End Date Heladio Palm MD [address] [place] [address] PCP - General Internal Medicine 05/02/22 documented as of this encounter
--- OUTSIDE RECORDS SUMMARY | 2024-08-02 15:14 | XMS_ITS | Encounter Summary ---
Author Organization Healthcare Address [address] [place] [address] Care Team Providers Care Human Services Manager Name Role Phone Huber Grossman MD Primary Care Provider [phone] Heladio Palm MD Primary Care Provider [phone] Reason for Visit * Reason Onset Date Comments HCN - Patient Message 04/29/2022 Encounter Details Date Type Department Care Team (Late st Contact Info) Description 04/29/2022 Telephone [facility] [address] [place] [address] None, None [address] [place] [address] HCN - Patient Message Social History Tobacco [...] suspected to have Coronavirus/COVID-19? No / Unsure 05/02/2022 9:52 AM EDT documented as of this encounter Miscellaneous Notes * Telephone Encounter - GainesGermaine - 04/29/2022 12:09 PM EDT Patient Phone Message Reason for Call: Patient reports having pain, inflammation, drooping eyelid, swelling, and blurry vision in her eye. Best contact number and optimal time of day to reach caller: [phone] Note: Please do not reply to this [...] Description 08/08/2024 1:00 PM EST Office Visit [facility] Nephrology, Bone & Mineral Metabolism [address] [facility], [address] [place] [address] Diana Ahumada MD [address] [place] [address] 12/30/2024 10:15 AM EDT Office Visit [facility] [address] [place] [address] Luis Olivares MD [address] [facility] [address] [place] [address] documented as of this encounter Visit Diagnoses Not on filedocumented in this encounter Care Teams Human Services Manager Relationship Specialty Start Date End Date Huber Grossman MD [address] [place] [address] PCP - General 01/18/21 05/01/22 Heladio Palm MD [address] [place] [address] PCP - General Internal Medicine 05/02/22 documented as of this encounter
--- OUTSIDE RECORDS SUMMARY | 2024-08-02 15:14 | XMS_ITS | Encounter Summary ---
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 Procedures Stress Test, Adult Vasodilator Say Arellano MD [address] [place] [address] Phone: tel: fax: Referral ID Status Reason Start Date Expiration Date Visits Re quested Visits Authorized [id number] Closed 07/24/2022 01/23/2024 1 1 * Imaging (Routine) - Closed Specialty Diagnoses / Procedures Referred By Contac t Referred To Contact Radiology Diagnoses 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 (Primary Dx); Systolic CHF, chronic (CMS/HCC); Paroxysmal atrial fibrillation (CMS/HCC); Essential hypertension; Obesity hypoventilation syndrome (CMS/HCC); Obstructive sleep apnea Social History Tobacco Use Types Packs/Day Years Used Date Smoking Tobacco: Former Cigarettes Q uit: 1999 Passive Smoke Exposure: Past Smokeless Tobacco: Never Tobacco Cessation:Counseling Given: No Alcohol Use Standard Drinks/Week Comments Not Currently [...] Sign Reading Time Taken Comments Blood Pressure 95/66 07/24/2022 10:06 AM EST Pulse 82 07/24/2022 10:06 AM EST Temperature - - Respiratory Rate 16 07/24/2022 10:06 AM EST Oxygen Saturation 93% 07/24/2022 10:06 AM EST Inhaled Oxygen Concentration - - Weight 118 kg (260 lb 12.9 oz) 07/24/2022 10:06 AM EST Height 157.5 cm (5' 2 ) 07/24/2022 10:06 AM EST Body Mass Index 47.7 07/24/2022 10:06 AM EST documented in this encounter Miscellaneous Notes * Progress Notes - Tru Stout MD - 07/24/2022 10:15 AM EST Images from the original note were not included. Interventional Cardiology Clinic Note to patient: The 21st Century Cures Act makes medical notes like these available to patients inthe interest of transparency. However, be advised this is a medical document. It is intended as [id number] communication. It is written in medical language and may contain abbreviations or verbiagethat are unfamiliar. It may appear blunt or direct. Medical documents are intended to carry relevant information, facts as evident, and the clinical opinion of the practitioner. Date of Visit 07/24/22 Patient Mirtha Barrios [address] [facility] [address] PCP Heladio Palm MD Chief Complaint Abnormal stress test SUBJECTIVE History of Present Illness Mirtha Barrios is a 72 y.o. female who presents to [facility] for dyspnea on exertion. Around the beginning of early June she reports having some discomfort in her chest that she describes as a localized substernal pressure like pain. Was associated with some shortness of breath, palpitations, nausea and diaphoresis. Pain at that time was worsened with exertion and improved with rest. She called her PCP who adjusted her BP medications and referred her to cardiology at [facility]. She was by cardiology and ultimately underwent a stress test around mid June that was positive resulting in a coronary angiogram and stent placement in her LAD 2/2 to a reported 70% occlusion. Following angiogram she has continued to have palpitations that she describes as feeling as if her heart is racing as well as shortness of breath. She is currently short of breath any exertion, though she declines shortness of breath with exertion. In regards to her chest pain she states it is different than it was prior to the catheterization. She now has a pain that sharp stabbing pain thatstarts on the R side of her chest and radiates to the substernal region of her chest. She describesthis as a short lived pain that based on certain positions (sitting up and leaning forward). Pain is worse with leaning back. Denies any changes in her pain with exertion. Denies orthopnea, new PND, lower extremity edema, presyncope, syncope or other associated symptoms. She has a history of atrial fibrillation, though she is not on anticoagulation at this time as she has a history of a retroperitoneal hematoma requiring renal artery embolization in 10/2019. Has been monitoring her BP at home and reports it is variable, she reports periods of her systolic BP being in the 140s and other times when it is in the 90s. Cardiac History -pAF (C=4/ H=3) with h/o retroperitoneal bleed; now on ASA -2013 cor angio: non-obstructive disease Dx1 (FFR 0.84) treated medically -Coronary angiogram 06/2022: Reportedly w/ 70% LAD lesion for which PCI was completed. Review of Systems 14 point ROS negative except as listed in HPI. OBJECTIVE Vitals Visit Vitals BP 95/66 Pulse 82 Ht 1.575 m (5' 2 ) Wt 118 kg (260 lb 12.9 oz) SpO2 93% BMI 47.70 kg/m?? Physical Exam Physical Exam Constitutional: General: She is not in acute distress. Cardiovascular: Rate and Rhythm: Normal rate and regular rhythm. Pulses: Normal pulses. Heart sounds: No murmur heard. Pulmonary: Effort: Pulmonary effort is normal. No respiratory distress. Breath sounds: Normal breath sounds. Abdominal: General: There is no distension. Palpations: Abdomen is soft. Tenderness: There is no abdominal tenderness. There is no guarding. Musculoskeletal: Right lower leg: No edema. Left lower leg: No edema. Skin: General: Skin is warm and dry. Neurological: General: No focal deficit present. Mental Status: She is alert and oriented to person, place, and time. Psychiatric: Mood and Affect: Mood normal. Behavior: Behavior normal. Lab Results Lab Results Component Value Date HGB 12.2 12/26/2019 HCT 39.9 12/26/2019 PLT 191 12/26/2019 CHOL 190 01/15/2017 TRIG 248 01/15/2017 HDL 40 01/15/2017 LDLCALC 100 01/15/2017 ALT 8 12/05/2019 AST 14 12/05/2019 NA 141 12/27/2019 K 3.1 (L) 12/27/2019 CREATININE 0.77 12/27/2019 BUN 7 (L) 12/27/2019 CO2 29 12/27/2019 TSH 3.58 01/20/2017 INR 1.2 (H) 11/23/2019 HGBA1C 6.8 (H) 11/23/2019 Echo Results No echocardiogram results found for the past 12 months ASSESSMENT AND PLAN Visit Diagnoses and Orders 1. 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 Systolic CHF, chronic (CMS/HCC) 3. Paroxysmal atrial fibrillation (CMS/HCC) 4. Essential hypertension 5. Obesity hypoventilation syndrome (CMS/HCC) 6. Obstructive sleep apnea Discussion Summary Mirtha Barrios is a 72 y.o. female who presents to [facility] for dyspnea on exertion. #Dyspnea on exertion -Unclear etiology at this time. Given she has known macrovascular disease it is likely that she also some microvascular that could be contributing to some of her symptoms. A component of her symptomsmay also be related to diastolic dysfunction and/or obesity/deconditioning. -Echo 05/2022: LVEF 55% w/ no regional wall motion abnormalities, grade 1 diastolic dysfunction, nosignificant valvular disease. -Ordered PET stress protocol to further evaluate for myocardial ischemia. -Continue current medication at this time. #CAD s/p PCI to LAD -Stable -Coronary angiogram at OSH reportedly with LAD disease requiring intervention, requesting records to clarify. -Echo 05/2022: LVEF 55% w/ no regional wall motion abnormalities, grade 1 diastolic dysfunction, nosignificant valvular disease. -Does have some chest pain but symptoms are atypical of myocardial ischemia. -Increased atorvastatin to 80mg daily. Agree with continuing DAPT w/ ASA and plavix given reported dyspnea with Brilinta. Continue amlodipine 10mg daily and coreg 25mg BID. -Ordered PET stress protocol to evaluate for myocardial ischemia as a potential etiology of her dyspnea. Will discuss continuation of cardiac rehab at next appointment based on results. #HFpEF -Stable -No evidence of decompensation at this time. -Echo 05/2022: LVEF 55% w/ no regional wall motion abnormalities, grade 1 diastolic dysfunction, nosignificant valvular disease. -Continue current medical therapy. #Paroxysmal Atrial Fibrillation -Stable -Rate controlled today with a HR of 82 -CHADSVASC of 5 -Not on AC 2/2 to history of retroperitoneal hemorrhage on AC in past. -Continue rate control with coreg 25mg BID #HTN -Stable -BP 95/66 today -Continue current medical therapy RTC after completion of PET stress protocol. I personally spent a total of 35 minutes on this encounter. This time includes face to face with patient, counseling and discussion and/or coordination of care. Electronically Signed by: Tru Stout MD - 07/24/2022 - 11:15 AM Cosigned by Say Arellano MD at 07/28/2022 4:31 PM EST Associated attestation - Say Arellano MD - 07/28/2022 4:31 PM EST I saw and evaluated the patient with the resident/fellow. I discussed the case with the resident/fellow and agree with the findings and plan as documented. documented in this encounter Plan of Treatment Upcoming Encounters Date Type Department Care Team (Late st Contact Info) Description 08/08/2024 1:00 PM EST Office Visit [facility] [place], Bone & Mineral Metabolism [address] [facility], [address] [place] [id number] Diana Ahumada MD [address] [place], [place] [id number] 12/30/2024 10:15 AM EDT Office Visit [facility] [address] [place] [address] Luis Olivares MD [address] [address] documented as of this encounter Results * Stress Test, Adult [...] performed under direct supervision of the reading heel lining paster. us Say Arellano MD CV STRESS PROCEDURES Final Result * PET/CT Myocardial Perfusion Imaging Multiple (08/19/2022 [...] PERFUSION IMAGING MULTIPLE ordered by SAY ARELLANO, [id number] EXAMINATION: Rb-82 Vasodilator PET MPI with CT [...] 1.09 LCx: 1.21 RCA: 1.06 Global: 1.12 [place] (MFR): LAD: 1.61 LCx: 1.47 RCA: 1.73 Global: 1.60 CT FINDINGS: Multivessel coronary artery atherosclerotic calcification. Prior PCI. Within the focused field of view, evaluation of the visualized thoracic and upper abdominal structures demonstrates no additional abnormalities. 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- Primary Systolic CHF, chronic (CMS/HCC) Paroxysmal atrial fibrillation (CMS/HCC) Atrial fibrillation Essential hypertension Unspecified essential hypertension Obesity hypoventilation syndrome (CMS/HCC) Obesity hypoventilation syndrome Obstructive sleep apnea Obstructive sleep apnea (adult) (pediatric) 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
--- OUTSIDE RECORDS SUMMARY | 2024-08-02 15:14 | XMS_ITS | Encounter Summary ---
Author Organization Healthcare Address [address] [place] [address] Care Team Providers Care Skein Tier Name Role Phone Heladio Palm MD Primary Care Provider [phone] Encounter Details Date Type Department Care Team (Latest Contact Info) Description 05/02/2022 10:15 AM EDT Office Visit [facility] [address] [place] [address] Luis Olivares MD [address] [address] Floppy lid syndrome (Primary Dx); Acute follicular conjunctivitis of both eyes; Diabetes mellitus type 2 without retinopathy (CMS/HCC); Pseudophakia of both eyes Social History Tobacco [...] Progress Notes - Luis Olivares MD - 05/02/2022 10:15 AM EDT Subjective HPI 72 year old female presents left eye eyelid flips up and irritation in eye when she gets up and herhas clouds in her vision and very itchy. Patient says her left eye is really sore. Patient says this has been going on for the left eye for 6 months. Patient says her right eye is red and itchy. Patient denies flashing lights in both eyes. C/o left eye redness/irritation worsening w/ use of bipap; a1c 6.6 Last edited by Luis Olivares MD on 05/02/2022 10:55 AM. ROS Negative for: Constitutional, Gastrointestinal, Neurological, Skin, Genitourinary, Musculoskeletal,HENT, Endocrine, Cardiovascular, Eyes, Respiratory, Psychiatric, Allergic/Imm, Heme/Lymph Last edited by Sue Albarran on 05/02/2022 10:15 AM. Objective Base Eye Exam Visual Acuity (Snellen - Linear) Right Left Dist sc 20/20 -2 20/25 Tonometry (Tonopen, 10:33 AM) Right Left Pressure 17 15 Pupils Pupils APD Right PERRL None Left PERRL None Visual [place] Right Left Full Full Extraocular Movement Right Left Full, Ortho Full, Ortho Neuro/Psych Oriented x3: Yes Mood/Affect: Normal Slit Lamp and Fundus Exam External Exam Right Left External Normal Normal Slit Lamp Exam Right Left Lids/Lashes Normal for age floppy lid upper Conjunctiva/Sclera hyperemia; follicular response hyperemia; follicular response Cornea Clear and compact Clear and compact [...] color (Oliva 78 d Lens) C/D Ratio 0.35 0.35 Macula Normal reflex; without edema Normal reflex; without edema Vessels Perfused; no tortuosity or abnormality Perfused; no tortuosity or abnormality Assessment/Plan Diagnoses and all orders for this visit: Floppy lid syndrome Acute follicular 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 of both eyes Ats(pf) qid/prn; Refresh PM hs ou Tobradex susp qid ou for 5d then taper DM info given; discussed value of regulating blood glucose levels and lifestyle influences Rtc as sched documented in this encounter Plan of Treatment Upcoming Encounters Date Type Department Care Team (Late st Contact Info) Description 08/08/2024 1:00 PM EST Office Visit [facility] Nephrology, Bone & Mineral Metabolism [address] [facility], [address] [place] [address] Diana Ahumada MD [address] [place] [address] 12/30/2024 10:15 AM EDT Office Visit [facility] [address] [place] [address] Luis Olivares MD [address] [place] [address] documented as of this encounter Visit Diagnoses Diagnosis Floppy lid syndrome- Primary Acute follicular 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
--- OUTSIDE RECORDS SUMMARY | 2024-08-02 15:14 | XMS_ITS | Encounter Summary ---
Author Organization Healthcare Address [address] [place] [address] Care Team Providers Care Rental Sales Associate Name Role Phone Heladio Palm MD Primary Care Provider [phone] Encounter Details Date Type Department Care Team (Latest Contact Info) Description 05/02/2022 Travel Social History Tobacco Use Types Packs/Day [...] AM EDT documented as of this encounter Plan of Treatment Upcoming Encounters Date Type Department Care Team (Late st Contact Info) Description 08/08/2024 1:00 PM EST Office Visit [facility] [address] [facility], [address] [place] [address] Diana Ahumada MD [address] [place] [address] 12/30/2024 10:15 AM EDT Office Visit [facility] [address] [place] [address] Luis Olivares MD [address] [address] documented as of this encounter Visit Diagnoses Not on filedocumented in this encounter Additional Health Concerns Assessment Noted Time A fall risk assessment has been complete d for the patient 05/02/2022 10:15 AM EDT documented as of this encounter Care Teams Rental Sales Associate Relationship Specialty Start Date End Date Heladio Palm MD [address] [place] [address] PCP - General Internal Medicine 05/02/22 documented as of this encounter
--- OUTSIDE RECORDS SUMMARY | 2024-08-02 15:15 | XMS_ITS | Encounter Summary ---
Author Organization [facility] Address [address] [id number] Care Team Providers Care Java Analyst Name Role Phone Unavailable Primary Care Provider Unavailabl e Encounter Details Date Type Department Care Team (Latest Contact Info) Description 11/23/2019 12:18 PM EDT - 12/27/2019 7:12 PM EDT Hospital Encounter [facility] [address] [place] [address] Ana Jean-Baptiste MD [address] [place] [address] Sepsis, unspecified organism (CMS/HCC) Social History Tobacco Use Types Packs/Day Years Used Date Smoking Tobacco: Never Assessed Comments Unknown Sex and Gender Information Value Date Recorded Sex Assigned at Not on file Legal Sex Female 8:26 PM EDT Gender Identity Not on file Sexual Orientation Not on file documented as of this encounter Medications at Time of Discharge Medication Sig Dispense Quantity Refills Last Filled Start D ate End Date Aspirin Buf,[id number] , 81 MG tablet 01/06/2017 05/06/2023 documented as of this encounter Miscellaneous Notes * Social Care Assessment Summary - ProviderCaden MD - 12/27/2019 12:00 AM EDT Patient Name: Soraida STYLES Date of : 1950 Discharge Note Discharge Note Who Will Provide Assistance Post-Discharge? Answers: Family son and daughter in law as needed, Answers: Self How Many Hours is/are the Caregiver(s) Available? Answers: 24 Hours Discharge Disposition Answers: Home Is Home Health Needed? If Yes, Specify Agency Name and Service Needed. Answers: No Is DME Needed? If Yes, Select Type of Equipment Needed and DME Company. Answers: Other pt has needed DME at home I Certify that the Patient has been Provided with a Choice for DME, Home Health, Infusion Services and Facility. Answers: Not Applicable Is This a High-Risk LACE Patient? Answers: No Follow Up Appointments Scheduled? Answers: Other to be arranged by PAC- pt requesting to arnge PCP appt. on her own Does the Patient Have Transportation to Follow up Appointments? Answers: Yes Scholarship? Answers: No DILEEP? Answers: No Medicare Second Notice? Answers: Yes Were Services Declined? Answers: No Additional Comments: Notes: Discussed with multidisciplinary team, per attending physician dr. Jean-Baptiste pt is medically ready to d/c home on this day. Pt was evaluated by PT/OT and currently has home w/assist recs and no DME needs. SW visited with the pt to discuss d/c plan. Pt is stating that she lives with her son, daughter in law and grandchildren, as well as that she will have 24/7 assistance at home as needed. Pt is reporting that she does not have medication coverage and that she is willing to pay for it out of pocket- team pharmacist and M2B aware and discussed this with the pt. Pt is in agreement to d/c home on this day. Pt's son will provide the pt with transportation upon the d/c. No other d/c needs reported or identified at this time. SW will remain available and assist as needed. I certify that the opportunity to review post-acute care facilities/agencies efficiency and quality data was provided to patient/family/legal traveling sales representative. Answers: N/A Electronically signed by: Carolynn Peterson * Discharge Summary - Ana Jean-Baptiste - 12/27/2019 12:00 AM EDT HOSPITALIZATION: Admit Date:23-Nov-2019 Discharge Date:27-Dec-2019 Discharge Atttending PhysicianSjoaquin LOPEZ, Ana ConsultsXRY - Radiology ID - Medicine / Infectious Disease Admitting DiagnosisPneumonia involving left lung DISCHARGE DIAGNOSIS: Pneumonia involving left lung: Reason for Hospitalization 69 yo F with DMT2, obesity, and recent retroperitoneal bleed (10/2019) who initially presented for acute hypoxic respiratory failure, found to have a large loculated L pleural effusion. Hospitalization complicated by interval development of an infected retroperitoneal hematoma. HOSPITAL COURSE: Hospital Course # Large left pleural effusion, likely parapneumonic from pneumonia (resolved) Pt had a large pleural effusion, s/p chest tube placement 11/23. Fluid studies did not have any growth, but was treated nonetheless with empiric coverage for the E. coli infection as discussed below. Chest tube discontinued on 11/27. On day of discharge, the pt denies having shortness of breath or coughing. Nelson well. 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 Imaging on this admission (11/22) showed a large left RP hematoma engulfing the kidney with air pockets concerning for superimposed infection. s/p CT-guided drainage by IR on 11/30, with cultures growing E. Coli. ID was consulted, and patient was started on Levaquin + Flagyl with plans for 4 weeks of therapy from hematoma drainage. Pt did not end up tolerating Flagyl, hence was kept on Levaquin only. Throughout her hospital stay, drainage from hematoma decreased, with interval removal of drain on 12/25. PLAN - Counseled patient to watch out for signs of anemia such as pallor, dizziness, and hypotension as well as flank pain - No anti-platelets and anti-coagulation for now - Pt to complete 4 weeks of appropriate antibiotic therapy (11/30-12/29/2019) with Levaquin # Diffuse morbiliform rash, likely a drug reaction Pt's stay was complicated by an interval development of rash, unclear if this is from the antibiotics. s/p skin biopsy 12/08, which showed mild dermatitis with eosinophils. This eventually got better. Unclear if it was triggered by beta- lactams (Zosyn, cefepime) as she has a history of severe penicillin allergy. # DMT2 complicated by possible gastroparesis Pt's glucose was managed on this admission. She however had persistent nausea and abdominal fullness concerning for gastroparesis. She was started on Reglan but she was concerned about its side effects. Started on erythromycin as well, however pt has no medication prescription insurance and this was $300. Opted to be discontinued. PLAN - Pt was instructed to follow-up with PCP and GI for further evaluation. Needs a gastric emptying study to formally diagnose this - Pt given a 7-day supply of PRN Phenergan - Instructed on small, frequent hargrove STABLE # COPD - On LAMA/ICS # Mood disorder - On venlafaxine, continue # DELL - Nocturnal CPAP # Hypothyroidism - Continue home levothryoxine # Morbid obesity - Complicates care DIAGNOSTIC AND PROCEDURAL EVENTS: - CT guided drainage of left hematoma by IR 11/30 Skin biopsy on 12/08 PHYSICAL EXAMINATION: - GEN - Not in acute distress HEENT - Normocephalic, moist mucus membranes CARDIO - Good S1 and S2, no murmurs PULM - Clear breath sounds ABD - Abdominal obesity, soft, non-tender NEURO - 5/5 on all extremities Suicide Screening: Discharge Suicide Screen: Has this patient had a low, moderate or high suicide severity documented during their hospital stay? No. DISCHARGE INFORMATION: DispositionHome, Home with assist Discharge Conditionstable (signs or symptoms of potential problems absent or manageable) Discharge MedicationsFinal Medication List for Discharge Summary Discharge Medicationsacetaminophen 500 mg oral tablet 1 tab(s) orally every 6 hours, As Needed -PRNpain atorvastatin 20 mg oral tablet 1 tab(s) orally once a day dilTIAZem 180 mg/24 hours oral tablet, extended release 1 tab(s) orally once a day erythromycin 250 mg oral tablet 1 tab(s) orally 3 times a day ferrous sulfate 325 mg (65 mg elemental iron) oral tablet 1 tab(s) orally once a day furosemide 40 mg oral tablet 1 tab(s) orally once a day HumaLOG 100 units/mL subcutaneous solution subcutaneous 4 times a day (before meals and at bedtime)per sliding scale HumaLOG KwikPen 100 units/mL injectable solution 3 unit(s) subcutaneous 3 times a day (with meals) and per sliding scale insulin glargine 100 units/mL subcutaneous solution 10 unit(s) subcutaneous once a day (at bedtime) insulin needles 1 box insulin pen needles K-Tab 20 mEq oral tablet, extended release 1 tab(s) orally once a day while on furosemide levoFLOXacin 750 mg oral tablet 1 tab(s) orally once a day levothyroxine 75 mcg (0.075 mg) oral tablet 1 tab(s) orally once a day - tablet orally once a day (06:00) losartan 50 mg oral tablet 0.5 tab(s) orally once a day magnesium oxide 400 mg (241.3 mg elemental magnesium) oral tablet 1 tab(s) orally once a day melatonin 3 mg oral tablet 2 tab(s) orally once a day (at bedtime) pantoprazole 40 mg oral delayed release tablet 1 tab(s) orally once a day senna 8.6 mg oral tablet 1 tab(s) orally once a day (at bedtime), As Needed constipation Symbicort 160 mcg-4.5 mcg/inh inhalation aerosol 2 puff(s) inhaled 2 times a day venlafaxine 75 mg oral tablet 1 tab(s) orally once a day Xopenex HFA 45 mcg/inh inhalation aerosol 2 puff(s) inhaled every 4 hours, As Needed - PRN shortness of breath Pending ResultsNo Pending Results DISCHARGE INSTRUCTIONS: Diet: Follow the Healthy Heart Diet (See instructions in your patient education handouts). Other: diabetic, 2 gram Na+ diet. Lifting: No Restrictions. Activity: move around as you are able and no activity that tires you out. Medication Instructions: Take Medication exactly as instructed. Recommended Follow Up Instructions: Follow Up Instructions: Follow up with: PCP. ATTESTATION STATEMENTS: Attending Billing: I spent >30 minutes of patient care and instruction time in preparation for this discharge. Electronic Signatures: Ana Jean-Baptiste MD (Attending) (Signed 28-Dec-19 19:13) Authored: HOSPITALIZATION, DISCHARGE DIAGNOSIS, HOSPITAL COURSE, DIAGNOSTIC AND PROCEDURAL EVENTS, PHYSICAL EXAMINATION, Suicide Screening, DISCHARGE INFORMATION, DISCHARGE INSTRUCTIONS, Recommended Follow Up Instructions, ATTESTATION STATEMENTS Last Updated: 28-Dec-19 19:13 by Ana Jean-Baptiste MD (Attending) * Social Care Assessment Summary - Provider, MD Caden - 12/26/2019 12:00 AM EDT Patient Name: Soraida STYLES Date of : 1950 Progress Note Progress Note Has Discharge Plan Changed? If Yes, Please Describe Change and Provide Details in Additional Comments Box Below. Answers: No Additional Comments Notes: Discussed with multidisciplinary team, per attending physician dr. Thomas is not medically ready to d/c. Pt currently has home w/assist recs and will d/c home with her family when medically appropriate. At this time pt has drain in place that will be pulled out prior d/c. SW will continue to follow and assist with d/c plan and as needed. Electronically signed by: Carolynn Peterson * Social Care Assessment Summary - Caden Szymanski MD - 12/22/2019 12:00 AM EDT Patient Name: Soraida STYLES Date of : 1950 Progress Note Progress Note Has Discharge Plan Changed? If Yes, Please Describe Change and Provide Details in Additional Comments Box Below. Answers: No Additional Comments Notes: Discussed with multidisciplinary team, per attending physician dr. Thomas is not medically ready to d/c. Pt was re-evaluated by PT/OT and currently has home w/assist recs. At this time pt has drain in place that will be pulled out prior d/c. Anticipating for the pt to d/c home with family when appropriate. SW will continue to follow and assist with d/c plan and as needed. Electronically signed by: Carolynn Peterson * Consults - Misael Mead - 12/22/2019 12:00 AM EDT Consultation Service: Service/ Team: GAS - Medicine / Gastroenterology. Requesting Attending Physician: Silvestre Thomas MD(Attending): Attending, Medicine - Internal, Medicine Consult Information: * Consult Requested Date/[id number] * Consult Completed Date/[id number] Chief Complaint: Requesting ServiceMT7 William Reason for Consultnausea, poor po intake, concern for gastroparesis Consult Note: - CC: nausea HPI: NAM STYLES is a 69y yo female with history of DM2, COPD on BiPap qhs and 3L O2 via NC, frequent UTIs, Afib (previously on rivaroxaban), HSP, HLD, HTN, nephropathy, GERD, hypothyroidism, CRISTINE, DM II and retroperitoneal bleed p/w nausea. She states that since her hospitalization she has had increasing amount of nausea, denies emesis. She feels early satiety- was only able to tolerate a smallamount of cereal this am and only had soup for dinner. She has been trying to eat smaller meals. She was tried on reglan for presumed gastroparesis, but she is hesitant about taking this medication due to side effects and she didn't think it helped much. She has a hx of Mukherjee's esophagus and last endoscopy . She is on daily ppi. She feels that symptoms are severe enough to cause her to loose sleep and she has been loosing weight. ROS: Pertinent positives and negatives per history of present illness. Otherwise 14 point review of systems negative. PAST MEDICAL HISTORY: COPD and respiratory failure HSP HLD HTN IgA nephropathy GERD hypothyroidism CRISTINE DM II frequent UTIs Afib (previously on rivaroxaban) retroperitoneal bleed PAST SURGICAL HISTORY: embolization of retroperitoneal bleed CCY hysterectomy when in her 30s SOCIAL HISTORY: Lives in [place], [place], with son, [id number] and their two kids and 2 outside dogs; , retired - worked at [employer]; Denies sick contacts, denies any contact with any known positive COVID-19; Denies smoking (10 pack-year hx, quit 25 years ago), EtOH use, illicit drug use. FAMILY HISTORY: Mother with HTN, CVA, Alzheimer's; father with heart disease ( of [place]); denies hx of DM or Ca HOME MEDS (as recorded in outpatient medication review): [retrieved for NAM STYLES at 22 Dec 2019 12:54]: levothyroxine 75 mcg (0.075 mg) oral tablet 1 tab(s) orally - tablet orally once a day (06:00) dilTIAZem 180 mg/24 hours oral tablet, extended release 1 tab(s) orally once a day furosemide 40 mg oral tablet 2 tab(s) orally once a day losartan 50 mg oral tablet 0.5 tab(s) orally once a day Symbicort 160 mcg-4.5 mcg/inh inhalation aerosol 2 puff(s) inhaled 2 times a day Xopenex HFA 45 mcg/inh inhalation aerosol 2 puff(s) inhaled every 4 hours, As Needed - PRN shortness of breath acetaminophen 500 mg oral tablet 1 tab(s) orally every 6 hours, As Needed diphenhydrAMINE 25 mg oral tablet 1 tab(s) orally every 6 hours, As needed, itching venlafaxine 75 mg oral tablet 1 tab(s) orally once a day atorvastatin 20 mg oral tablet 1 tab(s) orally once a day HumaLOG 100 units/mL subcutaneous solution subcutaneous 4 times a day (before meals and at bedtime)per sliding scale insulin glargine 100 units/mL subcutaneous solution 10 unit(s) subcutaneous once a day (at bedtime) insulin lispro 100 units/mL subcutaneous solution 5 unit(s) subcutaneous 3 times a day (with meals) ferrous sulfate 324 mg (65 mg elemental iron) oral tablet 1 tab(s) orally once a day magnesium oxide 400 mg (241.3 mg elemental magnesium) oral tablet 1 tab(s) orally once a day metoclopramide 10 mg oral tablet 1 tab(s) orally 4 times a day (before meals and at bedtime), As needed, Nausea / vomiting / fullness pantoprazole 40 mg oral delayed release tablet 1 tab(s) orally once a day, As Needed senna 8.6 mg oral tablet 1 tab(s) orally once a day (at bedtime), As Needed INPATIENT MEDS: Active Meds [retrieved for NAM STYLES at 22 Dec 2019 12:54]: ALTERNATIVE MEDICINES Melatonin: 6 MG Oral once a day (at bedtime) ANTI-INFECTIVES LevoFLOXacin: 750 MG Oral every 24 hours CARDIOVASCULAR AGENTS Diltiazem Capsule, Extended Release: 180 MG Oral once a day Furosemide: 40 MG Oral once a day CENTRAL NERVOUS SYSTEM AGENTS Acetaminophen: 650 MG Oral every 4 hours Metoclopramide: 10 MG Oral 4 x/day (before meals+bedtime) Morphine Inj.: 2 MG IntraVenously once Ondansetron Disintegrating Tablet: 4 MG Oral every 6 hours COAGULATION MODIFIERS Enoxaparin Inj. (PROPHYLAXIS): 40 MG SubCutaneous once a day GASTROINTESTINAL AGENTS Bisacodyl rectal: 10 MG Rectal once a day Docusate 50 mg-Senna 8.6 m tablet Oral 2 times a day Pantoprazole: 40 MG Oral once a day Simethicone: 80 MG Oral every 4 hours HORMONES/HORMONE MODIFIERS Levothyroxine: 75 mcg Oral once a day (06:00) METABOLIC AGENTS Atorvastatin: 20 MG Oral once a day (at bedtime) Dextrose 10% - 25 gm/250 mL (IVPB): 12.5 gram IntraVenous Piggy Back Per Glucose Monitoring Dextrose 10% - 25 gm/250 mL (IVPB): 25 gram IntraVenous Piggy Back Per Glucose Monitoring Glucagon Inj.: 1 MG IntraMuscular Per Glucose Monitoring Glucose 40%: 1 tube Oral Per Glucose Monitoring Insulin Glargine (LANTUS) Inj. 100 units/mL: 10 units SubCutaneous once a day (at bedtime) Insulin Lispro (HUMALOG) Inj. 100 units/mL: 3 units SubCutaneous 3 times a day (after meals) Insulin Lispro (HUMALOG) Inj. 100 units/mL (Correction Factor): units SubCutaneous 3 times a day after meals Insulin Lispro (HUMALOG) Inj. 100 units/mL (Correction Factor): units SubCutaneous <User Schedule> PSYCHOTHERAPEUTIC AGENTS Venlafaxine: 75 MG Oral <User Schedule> RESPIRATORY AGENTS Albuterol Inhalation MDI: 2 puff Inhalation every 4 hours Formoterol 5 mcg / Mometasone 200 mcg Inh MDI: 2 puff Inhalation 2 times a day Hypertonic 3% Saline Inhalation NEB: 3 mL Inhalation 2 times a day ALLERGIES: Penicillin->Anaphylaxis; Cipro->Unknown Codeine->Unknown IV Contrast->Unknown Metformin->Other Bactrim->Other rivaroxaban->Other PHYSICAL EXAM: BP 112/62 HR 89 R 18 T 97.8 (36.6) Wt (23-Nov-2019) 129.1kg (284.6lbs) Ht (23-Nov-2019) 157.0cm (5'1 ) BMI 52.4 157.0cm 129.1kg 52.4 GEN: No acute distress. obese HEENT: No scleral icterus. Moist mucous membranes. EOMI. NECK: Supple. ROM intact. RESP: non labored breathing, symmetric chest expansion, on NC CV: RRR, no lower extremity edema. ABD: Soft. Nontender. NT ND No masses. Left retroperitoneal drain : No Otto NEURO: Alert/oriented *4. No gross motor or sensory deficits. DATA: LABS (last 24h) [retrieved for NAM STYLES at 22 Dec 2019 12:54]: Imaging: REQUESTING PHYSICIAN: BEN KLEIN REASON FOR EXAMINATION/PROCEDURE: RAD PDP:Y * retroperitneaal hematoma EXAMINATION / PROCEDURE: CT Abdomen WO IVCON Dec 20 2019 - 14:14; CLINICAL INDICATION: Retroperitoneal hematoma TECHNIQUE: Multiple axial CT images were obtained from lung bases through upper pelvis without the administration of IV contrast. Reformatted images in the coronal and sagittal planes were generated from the axial data set to facilitate diagnostic accuracy. Total DLP (Dose-Length Product): 630.60 mGy.cm. Please note: The reported value represents the total of one or more individual components during the CT acquisition on this date and at this time, and as such, the same value may appear in more than one CT report depending on the interpreting/reporting physicians. COMPARISON: 12/13/2019 FINDINGS: Lower Chest: Bibasilar atelectasis and small left pleural effusion. Analysis of the abdominopelvic viscera is limited by the absence of intravenous contrast material. Solid Abdominal Organs: Normal liver, no focal lesions. Status post cholecystectomy. No biliary obstruction. Normal pancreas, spleen and adrenal glands. Stable low-attenuation lesion in the right kidney. Redemonstration of a percutaneous pigtail drain into the previously demonstrated left perinephric collection which is slightly decreased in size compared to the prior study. Tiny foci of gas are once again identified. The left perinephric/retroperitoneal hematoma has also decreased in size measuring approximately 11 x 4 x 6 cm, previously 11 x 9 x 6 cm. GI Tract/Mesentery/Peritoneum: The large and small bowel appear normal in caliber. No evidence of inflammatory change. No suspicious peritoneal/mesenteric findings.. Lymph Nodes/Vasculature: No lymphadenopathy by CT size criteria. The aortoiliac vasculature is normal in caliber. Free Fluid: Absent Musculoskeletal and Body Wall:No aggressive or suspicious findings. IMPRESSION: 1. Small interval decrease in size the previously demonstrated left perinephric fluid collection/hematoma compared to the prior study. A/P # nausea # possible gastroparesis # E Coli infection of retroperitoneal to left paraspinal/psoas hematoma # Chronic retroperitoneal hematoma per CT finding 11/23/2019 # Left-sided large pleural effusion (suspected parapneumonic effusion with LLL pneumonia), status post chest tube, removed 11/27 - symptoms of nausea are likely multifactorial but gastroparesis is certainly in the differential - noted that she did not seem to have benefit from Reglan - and she also does not want to take thismedication w/ concern for SE - we discussed gastroparesis diet - recommend staring a trial of erythromycin (recommend IV or sublingual preparation) - we discussed DHT in case medications and lifestyle interventions do not work - also discussed PEG should all of the above fail staff: Dr. Mead Thank you for consulting gastroenterology. Please call with questions. Gillian Juarez MD GI Fellow Pager: [phone] Attending Attestation Statement: I saw and evaluated the patient. I discussed the case with the resident/fellow and agree with the findings and plan as documented. Electronic Signatures: Misael Mead MD (Attending) (Signed 25-Dec-19 06:27) Authored: CRITICAL CARE CHARGING STATEMENT/ATTENDING ATTESTATION Co-Signer: CONSULTATION SERVICE, EVALUATION Gillian Juarez MD (Resident) (Signed 22-Dec-19 20:33) Authored: CONSULTATION SERVICE, EVALUATION Last Updated: 25-Dec-19 06:27 by Misael Mead MD (Attending) * Social Care Assessment Summary - ProviderCaden MD - 12/19/2019 12:00 AM EDT Patient Name: Soraida STYLES Date of : 1950 Progress Note Progress Note Has Discharge Plan Changed? If Yes, Please Describe Change and Provide Details in Additional Comments Box Below. Answers: No Additional Comments Notes: IR left hematoma drain remains in place and draining. The hematoma is now engulfing the left kidney with foci of gas per CT abdomen, rash still unresolved, on 3lnc, Levaquin 750mg po q day, flagyl 500mg po q 8 hr. Not medically ready for discharge. CM will continue to follow. Electronically signed by: Alvaro Dewitt * Social Care Assessment Summary - Caden Szymanski MD - 12/15/2019 12:00 AM EDT Patient Name: Soraida STYLES Date of : 1950 Progress Note Progress Note Has Discharge Plan Changed? If Yes, Please Describe Change and Provide Details in Additional Comments Box Below. Answers: No Additional Comments Notes: Discussed with multidisciplinary team, per attending physician dr. Sierra is not medically ready to d/c. SW spoke with [facility] liaison Dorinda to f/u on referral, per Dorinda pt was accepted by [facility] and can transfer to [facility] when medically appropriate. Pt updated and in agreement with d/c plan. SW will continue to follow and assist with d/c plan and as needed. Electronically signed by: Carolynn Peterson * Consults - Diandra Braden - 12/14/2019 12:00 AM EDT Consultation Service: Service/ Team: XRY - Radiology. Requesting Attending Physician: Rigo LOPEZ, Rupesh Hussein(Attending): Attending, Medicine, Medicine Chief Complaint: Requesting ServiceIM Reason for Consultleft peritoneal drain Consult Note: - Interventional Radiology Date: 14 December 2019 Chief Complaint: back pain HPI: NAM STYLES is a 69y female with a history of morbid obesity, COPD on BiPap qhs and 3L O2 via NC, Afib (previously on rivaroxaban), HS Purpura, nephropathy, DM II and retroperitoneal bleed post embolization Oct 2019, who presented from OSH for hypoxia, found to have large loculated L pleuraleffusion status post chest tube placement referred for drain management. Patient had a left renal bleed embo oct 2019. Follow up imaging showed a left retroperitoneal hematoma, and patient went for drain placement on 12/01/2019. Patient currently has a left retroperitoneal drain in place of prior hematoma. Drain had 100 outputtoday and 50 yesterday (flushing 10 cc each day currently). ROS: 10 point review of systems noncontributory except as specifically described in HPI PMH/PSH: No 04.Medical Hx recorded No 05.Surgical Hx recorded Visit Reason: PNEUMONIA INVOLVING LEFT LUNG Visit Reason: SOA Active Dx: Pneumonia involving left lung Core Measures: Pneumonia Core Measure Candidate FH: Noncontributory SH: Noncontributory Allergies: Penicillin->Anaphylaxis; Cipro->Unknown Codeine->Unknown IV Contrast->Unknown Metformin->Other Bactrim->Other rivaroxaban->Other Medications: [retrieved for NAM STYLES at 14 Dec 2019 09:10]: levothyroxine 75 mcg (0.075 mg) oral tablet 1 tab(s) orally - tablet orally once a day (06:00) dilTIAZem 180 mg/24 hours oral tablet, extended release 1 tab(s) orally once a day furosemide 40 mg oral tablet 2 tab(s) orally once a day losartan 50 mg oral tablet 0.5 tab(s) orally once a day Symbicort 160 mcg-4.5 mcg/inh inhalation aerosol 2 puff(s) inhaled 2 times a day Xopenex HFA 45 mcg/inh inhalation aerosol 2 puff(s) inhaled every 4 hours, As Needed - PRN shortness of breath acetaminophen 500 mg oral tablet 1 tab(s) orally every 6 hours, As Needed diphenhydrAMINE 25 mg oral tablet 1 tab(s) orally every 6 hours, As needed, itching venlafaxine 75 mg oral tablet 1 tab(s) orally once a day atorvastatin 20 mg oral tablet 1 tab(s) orally once a day HumaLOG 100 units/mL subcutaneous solution subcutaneous 4 times a day (before meals and at bedtime)per sliding scale insulin glargine 100 units/mL subcutaneous solution 10 unit(s) subcutaneous once a day (at bedtime) insulin lispro 100 units/mL subcutaneous solution 5 unit(s) subcutaneous 3 times a day (with meals) ferrous sulfate 324 mg (65 mg elemental iron) oral tablet 1 tab(s) orally once a day magnesium oxide 400 mg (241.3 mg elemental magnesium) oral tablet 1 tab(s) orally once a day metoclopramide 10 mg oral tablet 1 tab(s) orally 4 times a day (before meals and at bedtime), As needed, Nausea / vomiting / fullness pantoprazole 40 mg oral delayed release tablet 1 tab(s) orally once a day, As Needed senna 8.6 mg oral tablet 1 tab(s) orally once a day (at bedtime), As Needed Active Meds [retrieved for NAM STYLES at 14 Dec 2019 09:10]: ANTI-INFECTIVES LevoFLOXacin: 750 MG Oral every 24 hours MetroNIDAZOLE: 500 MG Oral every 8 hours CARDIOVASCULAR AGENTS Diltiazem Capsule, Extended Release: 180 MG Oral once a day Furosemide: 80 MG Oral once a day CENTRAL NERVOUS SYSTEM AGENTS Acetaminophen: 650 MG Oral every 4 hours Metoclopramide: 10 MG Oral 4 x/day (before meals+bedtime) Ondansetron Disintegrating Tablet: 4 MG Oral every 6 hours COAGULATION MODIFIERS Enoxaparin Inj. (PROPHYLAXIS): 40 MG SubCutaneous once a day GASTROINTESTINAL AGENTS Bisacodyl rectal: 10 MG Rectal once a day Docusate 50 mg-Senna 8.6 m tablet Oral 2 times a day Famotidine: 20 MG Oral 2 times a day Simethicone: 80 MG Oral every 4 hours HORMONES/HORMONE MODIFIERS Levothyroxine: 75 mcg Oral once a day (06:00) METABOLIC AGENTS Atorvastatin: 20 MG Oral once a day (at bedtime) Dextrose 10% - 25 gm/250 mL (IVPB): 12.5 gram IntraVenous Piggy Back Per Glucose Monitoring Dextrose 10% - 25 gm/250 mL (IVPB): 25 gram IntraVenous Piggy Back Per Glucose Monitoring Glucagon Inj.: 1 MG IntraMuscular Per Glucose Monitoring Glucose 40%: 1 tube Oral Per Glucose Monitoring Insulin Glargine (LANTUS) Inj. 100 units/mL: 10 units SubCutaneous once a day (at bedtime) Insulin Lispro (HUMALOG) Inj. 100 units/mL: 3 units SubCutaneous 3 times a day (after meals) Insulin Lispro (HUMALOG) Inj. 100 units/mL (Correction Factor): units SubCutaneous 3 times a day after meals Insulin Lispro (HUMALOG) Inj. 100 units/mL (Correction Factor): units SubCutaneous <User Schedule> NUTRITIONAL PRODUCTS Potassium CHLORIDE Tablet, Extended Release: 40 mEq Oral every 6 hours PSYCHOTHERAPEUTIC AGENTS Venlafaxine: 75 MG Oral <User Schedule> RESPIRATORY AGENTS Albuterol Inhalation MDI: 2 puff Inhalation every 4 hours DiphenhydrAMINE: 25 MG Oral every 6 hours Formoterol 5 mcg / Mometasone 200 mcg Inh MDI: 2 puff Inhalation 2 times a day Hypertonic 3% Saline Inhalation NEB: 3 mL Inhalation 2 times a day OTHER (Pharmacy): 1 EACH <see task> GivenOnce (Pharmacy): 1 EACH <see task> GivenOnce (Pharmacy): 1 EACH <see task> GivenOnce (Pharmacy): 1 EACH <see task> GivenOnce Labs: LABS (last 48h) [retrieved for NAM STYLES at 14 Dec 2019 09:10]: 144 97 19 < 159 Ca: 8.5 [12/12 @ 18:01] 3.1 32 0.85 WBC: 12.77 / Hb: 10.6 / Hct: 35.8 / Plt: 300 [12/12 @ 18:01] Vital Signs: VITALS (last 24h) [retrieved for NAM STYLES at 14 Dec 2019 09:10]: Tc: 36.4 Tmax: 36.6 @ Dec 22:00 Tf: 97.4 Tmax: 97.7 @ Dec 22:00 HR: 102 (86 - 102) BP: 124/61 (101/64 - 124/61) FSB (145 - 153) RR: 17 (17 - 18) SpO2: 93% (91% - 93%) 157.0cm 129.1kg 52.4 RESPIRATORY SETTINGS [retrieved at 14 Dec 2019 09:10]: (// @ ) Pertinent imaging: Assessment & Plan/Recommendations: 69y female with a hx of left retroperitoneal hematoma s/p embo and drain placement will benefit from drain flushing. Left renal embo 10/2019. Left retroperitoneal drain seen in november 2019, with drain placement 12/01/2019. -Drain currently in left retroperitoneal hematoma site. -Drain had 100 output today and 50 yesterday (flushing 10 cc each day currently). - Please continue to flush twice daily with 10 cc of NS. - Please continue to record drain output. - Once drain output has diminished to less than 10 cc daily we will consider removal. - If patient clinically improves and is stable for discharge, schedule outpatient procedure at [id number] option 4 Thank you for allowing us to participate in the care of this patient. Greg Hayes MD Resident, Department of Radiology [id number], [phone] Electronic Signatures: Greg Hayes MD (Resident) (Signed 14-Dec-19 09:20) Authored: CONSULTATION SERVICE, EVALUATION Diandra Braden MD (Attending) (Signed 14-Dec-19 23:14) Co-Signer: CONSULTATION SERVICE, EVALUATION Last Updated: 14-Dec-19 23:14 by Diandra Braden MD (Attending) * Social Care Assessment Summary - Caden Szymanski MD - 12/12/2019 12:00 AM EDT Patient Name: Soraida STYLES Date of : 1950 Progress Note Progress Note Has Discharge Plan Changed? If Yes, Please Describe Change and Provide Details in Additional Comments Box Below. Answers: No Additional Comments Notes: Discussed with multidisciplinary team, per attending physician dr. Nicole pt is not medically ready to d/c- pending improvement of rash and repeat CT scan. SW spoke with [facility] liaison Dorinda to f/u on referral, per Dorinda pt was accepted by [facility] and can transfer to [facility] when medically appropriate. Pt updated and in agreement with d/c plan. SW will continue to follow and assist with d/c plan and as needed. Electronically signed by: Carolynn Peterson * Pre-Procedure Assessment - Caden Szymanski MD - 12/09/2019 12:00 AM EDT Time-Out Statements: The procedure being performed was Skin biopsy. This procedure was performed by Dr. Nicole. Time-Out was called at 10:24. Additional Comments: Two skin biopsies collected from left and right sides of back. Electronic Signatures: Dilcia Mcmullen RN (Nurse) (Signed 09-Dec-19 10:24) Authored: Time Out for Procedure Last Updated: 09-Dec-19 10:24 by Dilcia Mcmullen RN (Nurse) * Social Care Assessment Summary - Caden Szymanski MD - 12/08/2019 12:00 AM EDT Patient Name: Soraida STYLES Date of : 1950 Progress Note Progress Note Has Discharge Plan Changed? If Yes, Please Describe Change and Provide Details in Additional Comments Box Below. Answers: No Additional Comments Notes: Discharge to pending improvement of rash, lasix increased today for leg edema.. Not medically ready for discharge at this time. will continue to follow. Electronically signed by: Alvaro Dewitt * Social Care Assessment Summary - Caden Szymanski MD - 12/05/2019 12:00 AM EDT Patient Name: Soraida STYLES Date of : 1950 Progress Note Progress Note Has Discharge Plan Changed? If Yes, Please Describe Change and Provide Details in Additional Comments Box Below. Answers: No Additional Comments Notes: Discussed with multidisciplinary team, per attending physician dr. Russell pt is not medically ready to d/c. Pt was evaluated by PT/OT and currently has acute rehab recs. Pt was referred to [facility]- [facility] following. ID is following- pending final abx regimen plan at this time. Team updated. SW will continue to follow and assist with d/c plan and as needed. Electronically signed by: Carolynn Peterson * Pre-Procedure Assessment - Mark Simmons - 12/01/2019 12:00 AM EDT Pre-Procedure Physician Assessment and Sedation Plan: Pre-Procedure Physician Assessment and Sedation Pl: Pre-Procedure Diagnosis: Left perinephric abscess drain placement. Procedure to be performed: Left perinephric abscess drain placement. Allergies: IV Contrast: Unknown Cipro: Unknown Codeine: Unknown Penicillin: Anaphylaxis Bactrim: Other rivaroxaban: Other Metformin: Other Airway Assessment: Mallampati ClassificationClass III: Soft and hard palate and base of the uvula are v Temperature, HR, etc.: Vital Signs: * Temperature F97.3 degrees F(1) * Temperature Celcius 36.27 degrees C * Temperatureoral (2) * Heart Rate94 bpm(1) * Heart Ratecardiac monitor (2) * Wevaneoy441 mm Hg(1) * Cpalhjzzw00 mm Hg(1) * BP Noninvasive Mean93 mm Hg(2) * BP NoninvasiveRight Arm electronic (2) * Respiratory Rate21 breaths per minute(1) * Pulse Oximetry SpO2 (%)95 percent hemoglobin(1) Pre-Sedation RISK Assessment: * History of gastro-esophageal Refluxno * History of Sleep Apneano * History of Snoringyes * Presence of Loose Teethno * Presence of dental appliance and/or oral piercingno * Recent Upper Respiratory Infection or feverno * Seizure Disorderno * History of Neurological Conditionno * History of Heart Diseaseno * History of Asthmano * History of prematurity < 37 weeks / Gestational age at birthno * Developmental delayno * Previous problems with sedation or surgeryno * Previous Family History of problems with sedation or surgeryno * Previous adverse reaction to contrast?No * Currently taking any anticoagulant or antiplatelet medication?No PS3-PS5 Anesthesia Consult Generally Recommended: * ASA ClassificationPS2: patient with mild systemic disease Sedation and Procedure Plan: * Sedation Planmoderate sedation * Procedure Planproceed as planned Home Medications: MedicationInstructionsReview StatusSubmitted By levothyroxine 75 mcg (0.075 mg) oral tablet1 tab(s) orally - tablet orally once a day (06:00)VerifiedAlyssa Esteves insulin glargine 100 units/mL subcutaneous unit(s) subcutaneous once a day (at bedtime)VerifiedAlyssa Esteves acetaminophen 500 mg oral tablet1 tab(s) orally every 6 hours, As NeededVerifiedAlyssa Esteves Symbicort 160 mcg-4.5 mcg/inh inhalation aerosol2 puff(s) inhaled 2 times a day, As NeededVerifiedJung Dyer I HumaLOG 100 units/mL subcutaneous solutionsubcutaneous 4 times a day (before meals and at bedtime) per sliding scaleVerifiedParConrad brunner PharmD insulin lispro 100 units/mL subcutaneous solution5 unit(s) subcutaneous 3 times a day (with meals)VerifiedParli Wilfred, Conrad E furosemide 40 mg oral tablet1 tab(s) orally once a dayVerifiedParli PharmD, Conrad E venlafaxine 75 mg oral tablet1 tab(s) orally once a dayVerifiedParli PharmD, Conrad E Xopenex HFA 45 mcg/inh inhalation aerosol2 puff(s) inhaled every 4 hours, As Needed - PRN shortnessof breathVerifiedParli PharmTanna, Conrad E Florastor 250 mg oral capsule1 cap(s) orally once a dayVerifiedParli PharmD, Conrad E pantoprazole 40 mg oral delayed release tablet1 tab(s) orally once a day, As NeededVerifiedParli PharmD, Conrad E dilTIAZem 180 mg/24 hours oral tablet, extended release1 tab(s) orally once a dayVerifiedAllen PharmD, Svetlana A senna 8.6 mg oral tablet1 tab(s) orally once a day (at bedtime), As NeededVerifiedAllen PharmD, Svetlana A magnesium oxide 400 mg (241.3 mg elemental magnesium) oral tablet1 tab(s) orally once a dayVerifiedAllen PharmD, Svetlana A ferrous sulfate 324 mg (65 mg elemental iron) oral tablet1 tab(s) orally once a dayVerifiedAllen PharmD, Svetlana A losartan 50 mg oral tablet0.5 tab(s) orally once a dayVerifiedCesar PharmD, Svetlana A atorvastatin 20 mg oral tablet1 tab(s) orally once a dayVerifiedCesar HarleyD, Svetlana A Electronic Signatures: Luis Driscoll MD (Resident) (Signed 01-Dec-19 11:21) Authored: Pre-Procedure Physician Assessment and Sedation Plan Mark Simmons MD (Attending) (Signed 02-Dec-19 07:48) Co-Signer: Pre-Procedure Physician Assessment and Sedation Plan Last Updated: 02-Dec-19 07:48 by Mark Simmons MD (Attending) * Social Care Assessment Summary - Caden Szymanski MD - 11/30/2019 12:00 AM EDT Patient Name: Soraida STYLES Date of : 1950 Progress Note Progress Note Has Discharge Plan Changed? If Yes, Please Describe Change and Provide Details in Additional Comments Box Below. Answers: No Additional Comments Notes: Discussed with multidisciplinary team, per attending physician dr. Russell pt is not medically ready to d/c. Pt was evaluated by PT/OT and currently has acute rehab recs. SW visited with the pt this morning to discuss acute rehab recs. Pt is stating that she is in agreement to be referred to [facility]- referral initiated on this day. Team updated. SW will continue to follow and assist with d/c plan and as needed. Electronically signed by: Carolynn Peterson * Consults - Jess Esteves - 11/30/2019 12:00 AM EDT Consultation Service: Service/ Team: ID - Medicine / Infectious Disease. Requesting Attending Physician: Scott Russell MD(Attending): Attending, Medicine, Medicine Chief Complaint: Requesting ServiceMT7- Medicine Reason for ConsultPossible infected hematoma Consult Note: - Chief Complaint: History of Present Illness: Mrs Phoebe Barrios is a 69yo female with history of COPD 3L O2 via NC, recurrent UTIs (E coli reported on ) Afib (previously on rivaroxaban), HSP on prednisone, recently tapered from 40mg q24hrs, HLD, HTN, nephropathy, GERD, hypothyroidism, CRISTINE, DM II. Pt has a recent admission to [facility] on 10/13 - 10/26 for a spontaneous retroperitoneal hematoma requiring IR guided embolization of the left renal artery, after discharge pt has been stable, denied fevers or chills but noted increased cold sweats and abdominal pain, pt presneted to her PCP on 11/17 with new onset of urinary symptoms, dysuria and tenesmus, a new urine cultures was obtained and pt was started on PO nitrofurantoin, with mild improvement. Pt presented to OSH ([facility]) on 11/22 with increased SoA and cough, pt was found to have a large Left pleural effusion new blood cultures were obtained, finalized negatives, pt received a dose of Ertapenem and then transferred to [facility] for further management. At [facility], pt was stable, normotensive, afebrile and tachypneic. labs obtained: WBC: 19.66 / Hb: 9.7 / Hct: 33.5 / Plt: 560 and creatinine 1.4. Surgery was consulted and no surgical intervention recommended, a new Chest tube was placed, cultures obtained from urine, pleural fluid and blood were reported as negative. Pt was placed empirically on broad spectrum antibiotics: vancomycin, cefepime and metronidazole. CT abdomen and pelvis was remarkable for multiple new foci of gas inside previous retroperitoneal hematoma. ID consulted for antibiotics recs Review of Systems: 14 systems asked and answered negative except as noted in HPI Past 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: COPD and respiratory failure, recent OSH ICU admission on Aug 2019 HSP on prednisone (Rheumatology [facility]) HLD HTN IgA nephropathy GERD hypothyroidism CRISTINE DM II recrrent UTI Afib (previously on rivaroxaban) Left Retroperitoneal hematoma (perirenal) Past Surgical History: Embolization of retroperitoneal bleed CCY Hysterectomy (fibroid tumors) Family History: Social History: Pt has 4 adult children, lives with son and [id number], Tobacco: Quit 25 years ago, used for 6 years EtOH: denies Recreational drugs: denies Allergies: Penicillin->Anaphylaxis; Cipro->Unknown Codeine->Unknown IV Contrast->Unknown Metformin->Other Bactrim->Other rivaroxaban->Other Medications: Active Meds [retrieved for NAM STYLES at 30 Nov 2019 17:48]: ANTI-INFECTIVES Cefepime Inj.: 2 gram IntraVenous Piggy Back every 8 hours MetroNIDAZOLE: 500 MG Oral every 8 hours Vancomycin Inj: 1000 MG IntraVenous Piggy Back every 24 hours CARDIOVASCULAR AGENTS Diltiazem Capsule, Extended Release: 180 MG Oral once a day Furosemide: 40 MG Oral once a day CENTRAL NERVOUS SYSTEM AGENTS Acetaminophen: 650 MG Oral every 4 hours Ondansetron Disintegrating Tablet: 4 MG Oral every 6 hours Promethazine: 12.5 MG Oral every 4 hours Promethazine Inj.: 12.5 MG IntraVenously every 4 hours COAGULATION MODIFIERS Enoxaparin Inj. (PROPHYLAXIS): 40 MG SubCutaneous once a day GASTROINTESTINAL AGENTS Docusate 50 mg-Senna 8.6 m tablet Oral 2 times a day Pantoprazole: 40 MG Oral once a day HORMONES/HORMONE MODIFIERS Levothyroxine: 75 mcg Oral once a day (06:00) METABOLIC AGENTS Atorvastatin: 20 MG Oral once a day (at bedtime) Dextrose 10% - 25 gm/250 mL (IVPB): 12.5 gram IntraVenous Piggy Back Per Glucose Monitoring Dextrose 10% - 25 gm/250 mL (IVPB): 25 gram IntraVenous Piggy Back Per Glucose Monitoring Glucagon Inj.: 1 MG IntraMuscular Per Glucose Monitoring Glucose 40%: 1 tube Oral Per Glucose Monitoring Insulin Glargine (LANTUS) Inj. 100 units/mL: 10 units SubCutaneous once a day (at bedtime) Insulin Lispro (HUMALOG) Inj. 100 units/mL: 5 units SubCutaneous 3 times a day (after meals) Insulin Lispro (HUMALOG) Inj. 100 units/mL (Correction Factor): units SubCutaneous 3 times a day after meals Insulin Lispro (HUMALOG) Inj. 100 units/mL (Correction Factor): units SubCutaneous <User Schedule> PSYCHOTHERAPEUTIC AGENTS Venlafaxine: 75 MG Oral <User Schedule> RESPIRATORY AGENTS Albuterol Inhalation MDI: 4 puff Inhalation every 4 hours Formoterol 5 mcg / Mometasone 200 mcg Inh MDI: 2 puff Inhalation 2 times a day GuaiFENesin Tablet, Extended Release: 600 MG Oral 2 times a day Hypertonic 3% Saline Inhalation NEB: 3 mL Inhalation 2 times a day TOPICAL AGENTS Chlorhexidine topical 0.12% liquid: 5 mL Swish and Spit 4 times a day Nystatin topical powder: 1 application Topical once a day OTHER (Pharmacy): 1 EACH <see task> GivenOnce Objective Vitals: VITALS (last 24h) [retrieved for NAM STYLES at 30 Nov 2019 17:48]: Tc: 36.4 Tmax: 37.1 @ Nov 22:00 Tf: 97.5 Tmax: 98.7 @ Nov 22:00 HR: 91 (82 - 98) BP: 127/66 (127/66 - 148/85) FSB (136 - 209) RR: 16 (16 - 24) SpO2: 96% (95% - 97%)BP 127/66 HR 91 R 16 T 97.5 (36.4) Wt (23-Nov-2019) 129.1kg(284.6lbs) Ht (23-Nov-2019) 157.0cm (5'1 ) BMI 52.4 Physical Exam: General: no acute distress, obese HEAD: nc/at, no temporal wasting EYES: perrl, EOMI, clear sclera ENT: mmm and without lesions, good dentition NECK: supple, no jvd CHEST: within normal limits, no indwelling devices CV: S1, S2, RRR, no m/r/g PULM: coarse breath sounds ABD: +bs, soft, moderate tenderness left florentino-abdomen, moderate distention : deferred EXT: 2+ distal pulses, 2+ edema MSK: FROM BUE/BLE, 5/5 strength BLE, BUE BACK: spine midline, no TTP over spinous processes SKIN: warm, pink, dry; toes with purplish discoloration NEURO: A&O x 3, CN II-XII grossly intact, no gross deficits PSYCH: euthymic, appropriate DATA LABS (last 48h) [retrieved for NAM STYLES at 30 Nov 2019 17:48]: 137 96 22 < 182 Ca: 9.2 [11/29 @ 04:43] 4.0 31 0.64 WBC: 13.94 / Hb: 9.0 / Hct: 31.3 / Plt: 345 [11/29 @ 04:43] 139 97 22 < 189 Ca: 9.1 P: 2.0 M.6 [11/28 @ 04:19] 4.3 32 0.66 WBC: 16.00 / Hb: 9.1 / Hct: 30.6 / Plt: 367 [11/28 @ 04:19] Microbiology: 2019-11-25 Gram Stain - Respiratory sputum >25 WBC/LPF NOS 2019-11-25 Respiratory Culture: MIXED UPPER RESPIRATORY JOSÉ MIGUEL 2019-11-24 Pleural Fluid Culture: NO GROWTH DAY 4. 2019-11-24 Pleural Fluid Culture (Aerobic/Anaerob Set): NO GROWTH DAY 5. 2019-11-24 AFB Culture, Non-Respiratory Source: PLEURAL FLUID 2019-11-24 Acid Fast Stain: No AFB seen 2019-11-24 Sterile Fluid Mycological Culture: NO FUNGAL GROWTH TO DATE 2019-11-24 STEVE, Fluid: No fungal elements 2019-11-23 Blood Culture (Aerobic/Anaerob Set): NO GROWTH DAY 5. 2019-11-23 Blood Culture (Aerobic/Anaerob Set): NO GROWTH DAY 5. 2019-11-23 Urine Culture (Catheter Urine): 1,000 CFU/ml NORMAL UROGENITAL JOSÉ MIGUEL 2019-11-23 SARS CoV2/COVID 19: negative 2019-10-13 Multi Drug Resistance Test: NO GROWTH DAY 1. 2017-03-16 Urine Culture (Clean Catch): >100,000 cfu/ml ESCHERICHIA COLI 2016-03-26 Urine Culture (Clean Catch): <10,000 CFU/ml Mixed urogenital or skin josé miguel present. 2013-08-15 Urine Culture (Clean Catch): >=100,000 CFU/ml CITROBACTER YOUNGAE 2013-07-05 Urine Culture (Clean Catch): >=100,000 CFU/ml CITROBACTER FREUNDII Imaging: CT Chest WO IVCON Nov 28 2019 10:30; IMPRESSION: Significantly decreased now traceleft pleural effusion with improved aeration of the left lung. Persistent moderate left lower lobe and mild left upper lobe atelectasis. Persistent partially visualized left retroperitoneal hematoma. CT Chest WO IVCON Mar 18 2020 - 08:48; CT Abdomen & Pelvis WO IVCON Nov 23 2019 - 08:48; IMPRESSION: Chest:Near complete collapse of the left lung with perihilar focal airspace opacities, air bronchograms and large pleural effusion. Abdomen/pelvis: Large left retroperitoneal hematoma which engulfs the kidney has increased comparedto the previous CT scan from October. There is new hematoma involving the left paraspinal musculature, psoas muscle and iliac muscle. There is increased density within the hematoma associated with acute or subacute hemorrhage. Within the hematoma there is air located posterior inferior to the right kidney . This is concerning for infection within the hematoma. Surrounding fat stranding. Lack of IV contrast limits evaluation for active bleeding. Labs and imaging reviewed Assessment/Plan: Mrs Phoebe Barrios is a 69yo female with history of COPD 3L O2 via NC, recurrent UTIs (E coli reported on ) Afib (previously on rivaroxaban), HSP on prednisone, recently tapered from 40mg q24hrs, HLD, HTN, nephropathy, GERD, hypothyroidism, CRISTINE, DM II. Pt has a recent admission to [facility] on 10/13 - 10/26 for a spontaneous retroperitoneal hematoma requiring IR guided embolization of the left renal artery, after discharge pt has been stable, denied fevers or chills but noted increased cold sweats and abdominal pain, pt presneted to her PCP on 11/17 with new onset of urinary symptoms, dysuria and tenesmus, a new urine cultures was obtained and pt was started on PO nitrofurantoin, with mild improvement. Pt presented to OSH ([facility]) on 11/22 with increased SoA and cough, pt was found to have a large Left pleural effusion new blood cultures were obtained, finalized negatives, pt received a dose of Ertapenem and then transferred to [facility] for further management. At [facility], pt was stable, normotensive, afebrile and tachypneic. labs obtained: WBC: 19.66 / Hb: 9.7 / Hct: 33.5 / Plt: 560 and creatinine 1.4. Surgery was consulted and no surgical intervention recommended, a new Chest tube was placed, cultures obtained from urine, pleural fluid and blood were reported as negative. Pt was placed empirically on broad spectrum antibiotics: vancomycin, cefepime and metronidazole. CT abdomen and pelvis was remarkable for multiple new foci of gas inside previous retroperitoneal hematoma. Chest tube was removed 2 days ago. ID consulted for antibiotics recs # Left retroperitoneal spontaneous hematoma in the setting of anticoagulation in immunosuppressed patient for steroid use 2/2 HSP # Recurrent UTI # Left pleural effusion s/p chest tube placement - Pt clinically stable, labs with leukocytosis, can be related to recent use of steroids vs true infection - In nature hematomas are sterile collections, unfortunately pt has major risk factors such as chronic steroid use and diabetes - On broad spectrum antibiotics: vanc/cefepime and flagyl RECS: - Ideally, if feasible, obtain specimen from hematoma (IR guided) - Agree with current antibiotics regimen - close follow-up kidney function while pt high dose antibiotics treatment - Please obtain records form PCP , including recent urine cultures Thank you for the opportunity to see this patient in consultation. ID will follow. Attending Attestation Statement: I saw and evaluated the patient with the resident/fellow. I discussed the case with the resident/fellow and agree with the findings and plan as documented. Attending Physician Comments: If able to safely obtain sample from hematoma, please send for gram stain, aerobic/anaerobic bacterial cultures, AFB/fungal stains and cultures, cytology. Patient will be followed by ID Immunocompromised/transplant. Electronic Signatures: Jess Esteves MD (Attending) (Signed 30-Nov-19 18:52) Authored: CRITICAL CARE CHARGING STATEMENT/ATTENDING ATTESTATION Co-Signer: CONSULTATION SERVICE, EVALUATION Vanesa Amos MD (Resident) (Signed 30-Nov-19 18:29) Authored: CONSULTATION SERVICE, EVALUATION Last Updated: 30-Nov-19 18:52 by Jess Esteves MD (Attending) * Social Care Assessment Summary - ProviderCaden MD - 11/28/2019 12:00 AM EDT Patient Name: Soraida STYLES Date of : 1950 Progress Note Progress Note Has Discharge Plan Changed? If Yes, Please Describe Change and Provide Details in Additional Comments Box Below. Answers: No Additional Comments Notes: Discussed with multidisciplinary team, per attending physician dr. Klein pt is not medically ready to d/c. Per dr. Klein pt currently has pigtail catheter in place that will need to be taken out prior d/c. PT/OT consult is placed on this day. SW will continue to follow and assist with d/c plan and as needed. Electronically signed by: Carolynn Peterson * Interim Summary - Aj Hercules - 11/26/2019 12:00 AM EDT Pulmonary Consult Interim Summar Patient states that he dyspnea is improving and has mild chest pain related the insertion site of the chest tube. she states that she has felt significant relief after evacuation of pleural effusion.Chest tube has continue to drain 110 cc of fluid on -20 cc H2O suction. Would continue to maintain chest tube on suction at -20 cc H2O, order placed. Please check CT chest on Thursday to accurately evaluate progression of pleural fluid. Thank you kindly for the consult. Plan was discussed with Dr. De La Torre. Aj Hercules MD Director Of Sustainability [phone] Electronic Signatures: Aj Hercules MD (Resident) (Signed on 26-Nov-19 16:45) Authored Last Updated: 26-Nov-19 16:45 by Aj Hercules MD (Resident) * Social Care Assessment Summary - Caden Szymanski MD - 11/24/2019 12:00 AM EDT Patient Name: Soraida STYLES Date of : 1950 Initial Evaluation Note Initial Evaluation Note Information Obtained From: Answers: Family, Answers: Medical Record Current Living Situation Answers: Family son Jesus Manuel ph#[phone] Dwelling Type Answers: House - Single Floor Housing Circumstances - Select All That Apply Answers: None applicable What is Patient's Plan at Discharge Answers: Other TBD Who Will Provide Assistance Post-Discharge? Answers: Other TBD How Many Hours is/are the Caregiver(s) Available? Answers: 24 Hours Functional Status Prior to Hospitalization Answers: Partially Independent Does Patient Have Home Health? If Yes, Specify Home Health Agency. Answers: No Does the Patient Have Home Infusion or Dialysis? If Yes, Specify Agency. Answers: No Home Infusion, Answers: No Dialysis Does Patient Have Any of the Following Hospital Equipment or DME? If Yes, Specify Type of Equipment/DME. Answers: Bipap, Answers: Rolling Walker, Answers: Other shower chair Does Patient Have Current DME Provider? If Yes, Specify Company. Answers: No Does Patient have a Primary Care Provider? Answers: Yes (if not listed or incorrect, please place Change ADT order in [facility] for registration to update PCP) Transportation Home at Time of Discharge Answers: Other TBD Transportation to Follow up Appointments Answers: Other TBD Does Patient Have Living Will/Advance Directives? If Yes, Instruct Patient/Family to Provide a Copy. Answers: No Does Patient Have a Power of Coat Operator? If Yes, Please Specify Who and Instruct Patient/Family to Provide a Copy of Form. Answers: No Medical POA, Answers: No Financial POA Does Patient Have a Guardian? If Yes, Please Specify Who and Request a Copy of Legal Form. Answers: No Additional Comments: Notes: Discussed with multidisciplinary team, per attending physician dr. Klein pt is not medically ready to d/c. Pt is testing for COVID 19- pending results at this time. LORNA contacted pt's family to obtain initial assesment- LORNA was unable to get hold of pt's son Jesus Manuel ph#[phone]. Spoke with pt's daughter Caitlyn ph#[phone]. Caitlyn is stating that priro this hospital stay pt was independent- per Caitlyn pt lately required more assistance from family. From DME pt has RW and shower chair, and is not current with HH. Pt uses 2l of O2 continuously at home, and BiPAP at night. Pt has [facility] as O2 provider. Pt's PCP is Dano Romero, ph#[phone]. Pt's family will provide the pt with transportation upon the d/c if appropriate. SW will continue to follow and assist with d/c plan and as needed. Electronically signed by: Carolynn Peterson * Pre-Procedure Assessment - Caden Szymanski MD - 11/24/2019 12:00 AM EDT Time-Out Statements: The procedure being performed was Chest Tube Insertion. This procedure was performed by Rashi Ortiz APRN. Time-Out is required for all procedures performed in any location, including the bedside. Site marking is required for all procedures with right/left distinction, multiple structures (as in fingers and toes), or levels (as in spinal procedures). Time-Out was called at 12:09. Additional Comments: left side. Electronic Signatures: Christina Dewitt RN (Nurse) (Signed 24-Nov-19 12:09) Authored: Time Out for Procedure Last Updated: 24-Nov-19 12:09 by Christina Dewitt RN (Nurse) * Procedures - Rashi Ortiz - 11/24/2019 12:00 AM EDT Chest Tube: This procedure was performed by Rashi Ortiz APRN on 24-Nov-2019 13:22. Indications for this procedure included Unspecified Pleural Effusion. Risks, benefits and alternatives to the procedure have been discussed and informed consent was consent signed. Hand hygiene performed. The site was prepped under sterile conditions. Sedative medication was not administered. Local anesthesia with 1% Lidocaine; 25ml was used. A 14 Pakistani catheter was used. The tube was positioned at the left 7th intercostal space. 800 mL of yellow fluid was removed. The tube was connected to a closed chest tube drainage system at 20 cm suction. A stat, portable chest x- ray was ordered to confirm placement. The procedure was performed without difficulty. The patient tolerated the procedure well. There were no complications. The procedure was performed with an ultrasound machine for identification of relevant anatomic structures, interpretation of the images, and guidance of the procedure.. Additional Comments: Chest ultrasound 11/24/2019: large loculated left sided pleural effusion and no right sided pleural effusion. Pleural fluid was sent for testing. Moderate Sedation: Vital Signs: Vital SignsPlease reference nursing procedural sedation documentation. Electronic Signatures: Rashi Ortiz APRN (Nurse Practitioner) (Signed 24-Nov-19 13:24) Authored: CHEST TUBE INSERTION, Moderate Sedation Last Updated: 24-Nov-19 13:24 by Rashi Ortiz APRN (Nurse Practitioner) * Consults - Dian Beavers - 11/24/2019 12:00 AM EDT Consultation Service: Service/ Team: X[facility] - Radiology. Requesting Attending Physician: Ben Klein MD(Attending): Attending, Medicine - Internal, Medicine Chief Complaint: Requesting ServiceMedicine Reason for ConsultRetroperitoneal hematoma evaluation Consult Note: - Interventional Radiology History & Physical NAM STYLES 1950 69y HPI: 69 year old female known by our service who presented a retroperitoneal hematoma requiring embolization on 10/13/19, we recommend not to start anticoagulation for Atrial fibrillation except under very close monitoring or consider other options for decreasing stroke risk, such as cardiac ablation and/or left atrial appendage closure. Patient presented to the ER again on 11/23/19 with COPD exacerbation complicated with left pneumonia and effusion. Patient underwent CT AP that showed a new paraspinal hematoma and redemonstration of retroperitoneal hematoma with air located posterior inferior to the right kidney. Interventional Radiology was consulted for evaluation. PMH: Per Chart COPD DM HTN AHRF IgA nephropathy AFib on Xarelto Hiatal hernia PSH: Per Chart 10/13/19 Angiography and embolization of the anteroinferior left renal artery, subsegmental branch tolower pole. FH: Reviewed in chart, noncontributory SH: Reviewed in chart, noncontributory Allergies: Penicillin->Anaphylaxis; Cipro->Unknown Codeine->Unknown IV Contrast->Unknown Metformin->Other Bactrim->Other Pertinent Medications: Active Meds [retrieved for NAM STYLES at 24 Nov 2019 13:59]: ANTI-INFECTIVES Cefepime Inj.: 2 gram IntraVenous Piggy Back every 8 hours MetroNIDAZOLE: 500 MG Oral every 8 hours Vancomycin Inj: 1500 MG IntraVenous Piggy Back every 24 hours CARDIOVASCULAR AGENTS Diltiazem Capsule, Extended Release: 180 MG Oral once a day CENTRAL NERVOUS SYSTEM AGENTS Acetaminophen: 650 MG Oral every 4 hours Ondansetron Disintegrating Tablet: 4 MG Oral every 6 hours OxyCODONE: 2.5 MG Oral every 4 hours COAGULATION MODIFIERS Enoxaparin Inj. (PROPHYLAXIS): 40 MG SubCutaneous once a day GASTROINTESTINAL AGENTS Pantoprazole: 40 MG Oral once a day HORMONES/HORMONE MODIFIERS Levothyroxine: 75 mcg Oral once a day (06:00) PredniSONE: 40 MG Oral once a day (at breakfast) METABOLIC AGENTS Atorvastatin: 20 MG Oral once a day (at bedtime) Dextrose 10% - 25 gm/250 mL (IVPB): 12.5 gram IntraVenous Piggy Back Per Glucose Monitoring Dextrose 10% - 25 gm/250 mL (IVPB): 25 gram IntraVenous Piggy Back Per Glucose Monitoring Glucagon Inj.: 1 MG IntraMuscular Per Glucose Monitoring Glucose 40%: 1 tube Oral Per Glucose Monitoring Insulin Lispro (HUMALOG) Inj. 100 units/mL (Correction Factor): units SubCutaneous 3 times a day after meals Insulin Lispro (HUMALOG) Inj. 100 units/mL (Correction Factor): units SubCutaneous <User Schedule> RESPIRATORY AGENTS Albuterol Inhalation MDI: 4 puff Inhalation every 4 hours Formoterol 5 mcg / Mometasone 200 mcg Inh MDI: 2 puff Inhalation 2 times a day Hypertonic 3% Saline Inhalation NEB: 3 mL Inhalation 2 times a day TOPICAL AGENTS Chlorhexidine topical 0.12% liquid: 5 mL Swish and Spit 4 times a day Nystatin 597403 units/mL: 5 mL Swish and Swallow 4 times a day OTHER (Pharmacy): 1 EACH <see task> GivenOnce [retrieved for NAM STYLES at 24 Nov 2019 13:59]: azelastine 205.5 mcg/inh (0.15%) nasal spray 2 spray(s) nasal 2 times a day Flonase 50 mcg/inh nasal spray 1 spray(s) in each nostril once a day levothyroxine 75 mcg (0.075 mg) oral tablet 1 tab(s) orally - tablet orally once a day (06:00) nystatin 100,000 units/g topical powder Apply topically to affected area 3 times a day predniSONE 2.5 mg oral tablet 3 tab(s) orally - tablet orally once a day (at breakfast) predniSONE 2.5 mg oral tablet 1 tab(s) orally - tablet orally once a day (at breakfast) predniSONE 5 mg oral tablet 1 tab(s) orally - tablet orally once a day (at breakfast) dilTIAZem 120 mg/24 hours oral capsule, extended release 1 cap(s) orally once a day furosemide 40 mg oral tablet 1 tab(s) orally once a day loratadine 10 mg oral tablet 1 tab(s) orally once a day Symbicort 160 mcg-4.5 mcg/inh inhalation aerosol 2 puff(s) inhaled 2 times a day Xopenex HFA 45 mcg/inh inhalation aerosol 2 puff(s) inhaled every 4 hours, As Needed - PRN shortness of breath acetaminophen 500 mg oral tablet 1 tab(s) orally every 6 hours aspirin 81 mg oral tablet, chewable 1 tab(s) orally once a day oxyCODONE 5 mg oral tablet 1 tab(s) orally every 4 hours, As needed, Pain unresponsive to other medications/interventions. for sedation. venlafaxine 75 mg oral tablet 1 tab(s) orally once a day enoxaparin 40 milligram(s) subcutaneous 2 times a day glucagon 1 milligram(s) intramuscular , As needed, If patient NPO, lacks IV access, May Give IM andPOC BG less than or equal to 70 mg/dL, - powder for injection intramuscular Per Glucose Monitoring glucose 40% oral gel orally HumaLOG 100 units/mL subcutaneous solution subcutaneous 4 times a day (before meals and at bedtime)per sliding scale insulin glargine 100 units/mL subcutaneous solution 10 unit(s) subcutaneous once a day (at bedtime) insulin lispro 100 units/mL injectable solution 5 unit(s) subcutaneous 3 times a day (after meals) insulin lispro 100 units/mL injectable solution subcutaneous 3 times a day (after meals), As needed, Correction Dose; 2 units if POC BG 150 - 199 units if POC BG 200 - 249 units if POC BG 250 - 299 units if POC BG 300 - 349 units if POC BG 350 - 399provider if POC BG greater than 400 insulin lispro 100 units/mL injectable solution subcutaneous , As needed, Correction Dose; 1 units if POC BG 250 - 299 units if POC BG 300 - 349 units if POC BG 350 - 399Provider if POC BG greater than 400 - solution subcutaneous (Every 1 day at 03:00, 21:00 ) insulin lispro 100 units/mL subcutaneous solution 5 unit(s) subcutaneous 3 times a day (with meals) rosuvastatin 10 mg oral tablet 1 tab(s) orally once a day Florastor 250 mg oral capsule 1 cap(s) orally once a day pantoprazole 40 mg oral delayed release tablet 1 tab(s) orally once a day potassium chloride 10 mEq oral tablet, extended release 1 tab(s) orally once a day sennosides-docusate 8.6 mg-50 mg oral tablet 1 tab(s) orally 2 times a day Vitamin D2 50,000 intl units (1.25 mg) oral capsule 1 cap(s) orally once a week on Fridays Vitamin D3 5000 intl units (125 mcg) oral capsule 1 cap(s) orally once a day Review of Systems: A complete 14-point review of systems was negative, except as noted in HPI Physical Exam: VITALS (last 24h) [retrieved for NAM STYLES at 24 Nov 2019 13:59]: Tc: 36.6 Tmax: 37.1 @ Nov 23:24 Tf: 97.8 Tmax: 98.8 @ Nov 23:24 HR: 88 (87 - 100) BP: 143/72 (134/67 - 154/89) FSB (217 - 217) RR: 18 (18 - 26) SpO2: 94% (84% - 94%) I & O Summary [retrieved for NAM STYLES at 24 Nov 2019 13:59]: Description 8h shift 8h shift 8h shift ( 24h total ) Current shift Total IN: 0 0 0 ( 0 ) 0 Urine: Voided -0 -0 -800 ( -800 ) -0 Total OUT: -0 -0 -800 ( -800 ) -0 TOTAL NET: 0 0 -800 ( -800 ) 0 52.4 / 157.0cm / 129.1kg Labs: LABS (last 48h) [retrieved for NAM STYLES at 24 Nov 2019 13:59]: 135 92 49 < 264 Ca: 9.6 P: 5.1 M.3 [11/23 @ 04:55] 4.8 29 1.24 WBC: 17.01 / Hb: 9.0 / Hct: 30.8 / Plt: 553 [11/23 @ 04:55] Alb: 1.6 [11/23 @ 04:55] x x x < [11/22 @ 14:44] 5.5 x x x x x < [11/22 @ 10:51] 5.4 x x PT: 15.0 / PTT: x / INR: 1.2 [11/22 @ 10:21] 132 92 43 < 216 Ca: 9.9 [11/22 @ 07:38] 6.9 26 1.40 AST: 15 / ALT: 10 / AlkPhos: 129 / Bili: 0.2 / Prot: 8.2 / Alb: 1.6 [11/22 @ 07:38] WBC: 19.66 / Hb: 9.7 / Hct: 33.5 / Plt: 560 [11/22 @ 07:30] Imaging: Images were personally reviewed and interpreted. Assessment: 69 year old female known by our service who presented a retroperitoneal hematoma requiring embolization on 10/13/19, we recommend not to start anticoagulation for Atrial fibrillation exceptunder very close monitoring or consider other options for decreasing stroke risk, such as cardiac ablation and/or left atrial appendage closure. Patient presented to the ER again on 11/23/19 with COPDexacerbation complicated with left pneumonia and effusion. Patient underwent CT AP that showed a new paraspinal hematoma and redemonstration of retroperitoneal hematoma with air located posterior inferior to the right kidney. Interventional Radiology was consulted for evaluation. Plan: Images and case were discussed with attending, no indications for intervention at this point, priorimaging of retroperitoneal hematoma was perform before embolization procedure, so given the stable hemodynamic status it is unlikely to represent enlarging hematoma at this time. There is gas within the hematoma, which could represent infected hematoma, we agree with primary team plan, if patient does not improvement with conservative management with antibiotic or/and after respiratory status stabilized, consider percutaneous drainage. Patient will require CT AP with contrast for planning. If patient becomes unstable with concerns of acute bleed, we recommend CTA for planning and please call the IR service pager. Rest by primary team. Thank you for allowing us to participate in the care of this patient. Please feel free to call the service pager ([phone]) with any questions or concerns. Electronic Signatures: Homer Cavanaugh MD, Luis Ashton (Resident) (Signed 24-Nov-19 15:09) Authored: EVALUATION, CONSULTATION SERVICE Dian Beavers MD (Attending) (Signed 06-Dec-19 10:34) Co-Signer: EVALUATION, CONSULTATION SERVICE Last Updated: 06-Dec-19 10:34 by Dian Beavers MD (Attending) * Consults - Ben Buck - 11/24/2019 12:00 AM EDT Consultation Service: Service/ Team: TXC - Surgery / CVT Transplant. Requesting Attending Physician: Ben Klein MD(Attending): Attending, Medicine - Internal, Medicine Consult Information: * Consult Requested Date/[id number] 09:49 Chief Complaint: Chief Complaintlarge left sided pleural effusion Admitting Diagnosisshortness of breath, retroperitoneal He Requesting Jes Klein MD ( internal Medicine) Reason for Consultleft pleural effusion Consult Note: - CHIEF COMPLAINT: large left sided pleural effusion HISTORY OF PRESENT ILLNESS: 69 yrs obese lady with A fib on rivaroxaban, who had recently been admitted for retroperitoneal hematoma, this time she is admitted for worsening shortness of breath, wtih 5 liters o2 she was saturating 93%. . She does not endorse fever, the WBC is 17K, the CT chest shows a large pleural effusion on the left chest with lung atelectasis. On US of the chest the pleural space is loculated with some septation. She was admitted for pneumonia and acute on chronic respiratory failure. The retroperitoneal hematoma seems stable and surgery and IR were consulted and not active intervention was though to be necessary. She is short of breath with minimal exertion, with mostly dry cough. PAST MEDICAL HISTORY: COPD and respiratory failure, n bipap with 3 liters o2 HSP HLD HTN IgA nephropathy GERD hypothyroidism CRISTINE DM II frequent UTIs Afib (previously on rivaroxaban) retroperitoneal bleed embolization of retroperitoneal bleed CCY hysterectomy when in her 30s Allergy: Penicillin->Anaphylaxis; Cipro->Unknown Codeine->Unknown IV Contrast->Unknown Metformin->Other Bactrim->Other SOCIAL HISTORY: She used to work in [employer]) until 2018 Lives in [place], [place], with son, [id number] and their two kids and 2 outside dogs; , retired - worked at [employer]; Denies sick contacts, denies any contact with any known positive COVID-19; Denies smoking (10 pack-year hx, quit 25 years ago), EtOH use, illicit drug use. FAMILY HISTORY: Mother with HTN, CVA, Alzheimer's; father with heart disease ( of [place]); denies hx of DM or Ca REVIEW OF SYSTEMS: Positive per HPI, otherwise 14 point review of systems negative. Active Meds [retrieved for NAM STYLES at 24 Nov 2019 21:06]: ANTI-INFECTIVES Cefepime Inj.: 2 gram IntraVenous Piggy Back every 8 hours MetroNIDAZOLE: 500 MG Oral every 8 hours Vancomycin Inj: 1500 MG IntraVenous Piggy Back every 24 hours CARDIOVASCULAR AGENTS Diltiazem Capsule, Extended Release: 180 MG Oral once a day CENTRAL NERVOUS SYSTEM AGENTS Acetaminophen: 650 MG Oral every 4 hours Ondansetron Disintegrating Tablet: 4 MG Oral every 6 hours OxyCODONE: 2.5 MG Oral every 4 hours COAGULATION MODIFIERS Enoxaparin Inj. (PROPHYLAXIS): 40 MG SubCutaneous once a day GASTROINTESTINAL AGENTS Pantoprazole: 40 MG Oral once a day HORMONES/HORMONE MODIFIERS Levothyroxine: 75 mcg Oral once a day (06:00) PredniSONE: 40 MG Oral once a day (at breakfast) METABOLIC AGENTS Atorvastatin: 20 MG Oral once a day (at bedtime) Dextrose 10% - 25 gm/250 mL (IVPB): 12.5 gram IntraVenous Piggy Back Per Glucose Monitoring Dextrose 10% - 25 gm/250 mL (IVPB): 25 gram IntraVenous Piggy Back Per Glucose Monitoring Glucagon Inj.: 1 MG IntraMuscular Per Glucose Monitoring Glucose 40%: 1 tube Oral Per Glucose Monitoring Insulin Glargine (LANTUS) Inj. 100 units/mL: 10 units SubCutaneous once a day (at bedtime) Insulin Lispro (HUMALOG) Inj. 100 units/mL (Correction Factor): units SubCutaneous 3 times a day after meals Insulin Lispro (HUMALOG) Inj. 100 units/mL (Correction Factor): units SubCutaneous <User Schedule> PSYCHOTHERAPEUTIC AGENTS Venlafaxine: 75 MG Oral <User Schedule> RESPIRATORY AGENTS Albuterol Inhalation MDI: 4 puff Inhalation every 4 hours Formoterol 5 mcg / Mometasone 200 mcg Inh MDI: 2 puff Inhalation 2 times a day Hypertonic 3% Saline Inhalation NEB: 3 mL Inhalation 2 times a day TOPICAL AGENTS Chlorhexidine topical 0.12% liquid: 5 mL Swish and Spit 4 times a day Nystatin 775157 units/mL: 5 mL Swish and Swallow 4 times a day OTHER (Pharmacy): 1 EACH <see task> GivenOnce VITALS: VITALS (last 24h) [retrieved for NAM STYLES at 24 Nov 2019 20:50]: Tc: 36.4 Tmax: 37.1 @ Nov 23:24 Tf: 97.6 Tmax: 98.8 @ Nov 23:24 HR: 93 (87 - 93) BP: 142/83 (143/72 - 141/94) FSB (217 - 331) RR: 20 (18 - 22) SpO2: 95% (84% - 95%) PHYSICAL EXAM: GENERAL: morbidly obese EYES: PERRLA, EOMI HEENT: Normal oropharyngeal tissues; no masses or exudates. NECK: neck supple, non tender; no masses, adenopathy or thyromegaly CHEST: difficult to hear breath sounds, decreased air entry on the left side. eduardo under the breasts HEART: Regular rate and rhythm with no murmurs, gallops, or rubs. ABDOMEN: Soft, nontender, non-distended, normoactive bowel sounds. No rebound/guarding. No hepatosplenomegaly EXTREMITIES: purpura in the sole of the feet and toe , edema SKIN: Normal. Warm, dry, well-perfused. No jaundice NEURO: Alert and oriented x 3; Cranial nerve 2-12, peripheral sensory, and motor function grossly normal. LABS AND IMAGING: LABS (last 24h) [retrieved for NAM STYLES at 24 Nov 2019 20:50]: 135 92 49 < 264 Ca: 9.6 P: 5.1 M.3 [11/23 @ 04:55] 4.8 29 1.24 WBC: 17.01 / Hb: 9.0 / Hct: 30.8 / Plt: 553 [11/23 @ 04:55] Alb: 1.6 [11/23 @ 04:55] CT Chest WO [facility] Nov 23 2019 - 08:48; [facility] - 08:48; Pleural/Pericardial Space: Large left pleural effusion. Small right pleural effusion. No pneumothorax. No pericardial effusion. Lymph Nodes: No lymphadenopathy within the chest. Lungs: Near complete collapse of the left lung with perihilar focal airspace opacities, air bronchograms and overlying atelectasis. Small portion of the left upper lobe remains aerated. No focal lung consolidation within the right lung. Mild dependent basilar atelectasis within the right lung. Fluid survey: Large left retroperitoneal fluid collection engulfing and obscuring the kidney. It measures approximately 15.2 x 11.8 x 11.4 cm. There is air located posterior and inferior to the left kidney. This correlates with previously noted retroperitoneal hematoma from prior outside CT on 10/12/2019. Air collections are most likely related to superimposed infection in a pre-existing hematoma. There is also an increase in fluid more posterior and inferior to this previous collection. The additional hematoma obscures the left paraspinal musculature and psoas muscle and involves the left iliac muscle . Surgical coils associated with previous embolization within the anterior medial portion of the kidney. Pleural fluid analysis PH 7.34 LDH 114 Protein 4.4 lymphocytic 50% gram stain negative and no growth so far. ASSESSMENT/PLAN: 69 female with recent history of retroperitoneal hematoma representing to the hospital with shortness of breath suspected to have pneumonia and a large left side pleural effusion. Thoracentesis was performed to reveal a exudative effusion with lymphocytic predominance. The cultures are negative so far. 840 ml of yellow fluid has been drained so far. Unilateral large left sided pleural effusion, exudative , lymphocytic predominant. This could be a parapneumonic effusion secondary to the pneumonia, I don't think this is a mycobacterial infection, also less likely malignant. This could also be due to the retroperitoneal hematoma. Continue chest tube drainage, the cxr shows inflation of the lungs. If the drainage is incomplete we will instill tPa and Dnase. will await the remainder of the pleural fluid analysis. agree with vanco, cefepime, and flagyl Thank you for the consult. Electronic Signatures: Ben Buck MD (Attending) (Signed 24-Nov-19 21:33) Authored: CONSULTATION SERVICE, EVALUATION Last Updated: 24-Nov-19 21:33 by Ben Buck MD (Attending) * ED Notes - Vani Tristan - 11/23/2019 12:00 AM EDT Registration:: ED Presentation: * ED Arrival Date & Time:23-Nov-2019 05:43 * Reason for Visit:SOA Disposition: : Boarding Evaluation: * Will this patient be boarding in the ED?yes * What location is the patient boarding for?Floor Electronic Signatures: Vani Tristan RN (Nurse) (Signed 23-Nov-19 13:01) Authored: Disposition: Giovani Naidu (Patient Registration) (Signed 23-Nov-19 05:45) Authored: Registration: Last Updated: 23-Nov-19 13:01 by Vani Tristan RN (Nurse) * ED Notes - Roselyn Kaur - 11/23/2019 12:00 AM EDT Evaluation: - CHIEF COMPLAINT: Shortness of breath HISTORY OF PRESENT ILLNESS: PHOEBE BARRIOS NAM Ramirez is a 69y female who presents with acute on chronic shortness of breath. Patient has a history of severe COPD requires 3 L nasal cannula at baseline. Patient has been discharged for a month, she was seen in our hospital a month ago with a spontaneous retroperitoneal bleed, anticoagulated on Xarelto for her atrial fibrillation. Patient says that she had been doing well at home but still has abdominal discomfort because of her retroperitoneal hematoma. Last night she woke up in the middle the night short of breath. She normally wears BiPAP at night.During the day she wears a nasal cannula for oxygen. One of her family members took her oxygen saturation at home while on BiPAP and noted it to be 85-86%. He turned her oxygen concentration from 3 Lto 5 L. she is still short of breath. She was taken outside hospital where a flu swab was negative.Chest x-ray revealed a whiteout of her left lung. She was placed on 15 L non-rebreather, found to have a UTI and given ertapenem. Transferred to with sepsis, UTI, respiratory failure. PAST MEDICAL HISTORY: HSP HLD HTN IgA nephropathy GERD Depression Hypothyroidism CRISTINE Type 2 diabetes COPD Frequent UTIs Atrial fibrillation on Xarelto Retroperitoneal bleed PAST SURGICAL HISTORY: Embolization of Retroperitoneal bleed FAMILY MEDICAL HISTORY: Non-contributory MEDICINES: Reviewed per nursing documentation ALLERGIES: Reviewed per nursing documentation SOCIAL HISTORY: Negative for current tobacco, alcohol, or recreational drug use REVIEW OF SYSTEMS: A 14 point review of systems was performed and was otherwise negative except as noted in the HPI or below. VITALS: No vitals recorded in last 24 hours PHYSICAL EXAM: GENERAL: Well nourished, well developed, moderate respiratory distress. Morbidly obese. HEENT: atraumatic, normocephalic. EOMI. Wearing Non-rebreather mask. NECK: No tracheal deviation CHEST: Nontender with no deformity, equal chest rise HEART: Regular rhythm with no murmurs, gallops, or rubs. LUNGS: Nearly silent left chest, moving adequate air on the right side without crackles or wheezes.Tachypneic. Can only speak in short sentences. ABDOMEN: Obese, soft, moderately tender in all quadrants. EXTREMITIES: Moving all four extremities with full strength, no acute deformity or joint effusions.No cyanosis or edema. SKIN: Normal. Warm, dry, well-perfused. PSYCH: Appropriate. No suicidal or homicidal ideation. NEURO: GCS 15. Cranial nerve 2-12 and peripheral sensory, motor, and cerebellar function grossly intact. LABS/IMAGING: [] MEDS: [] MEDICAL DECISION MAKING: Patient was seen and examined with Dr. Kaur. Patient arrives in acute hypoxic respiratory failure on 15 L non-rebreather satting 98%. Outside hospital paperwork reviewed, labs from the outside hospital revealed a fairly normal ABG, chest x-ray that shows a whiteout of her left lung. Negative flu swabs. Based on her respiratory distress and current pandemic, COVID-19 swab obtained. Patient transitioned to nasal cannula oxygen. Basic labs obtained. Patient already covered with broad-spectrum antibiotics from outside hospital, last dose given at 5:[address] scan of the chest abdomen and pelvis were obtained to better visualize her left lung and to assess for her abdominal discomfort. Patient has a contrast allergy. Care of patient handed off to oncoming resident pending CT Scans, lab work, and admission to eitherthe Pulmonary ICU or Progressive Unit pending respiratory status. VBG showed elevated CO2 but no acidosis consistent with a chronic process. She was significantly hyperkalemic but EKG was reassuring was started on hyperkalemia protocol. CT scan revealed large left-sided pleural effusion and likely infection of the retroperitoneal space where her prior hemorrhage was. [facility] surgery was consulted for evaluation of the retroperitoneal injury and the pleural effusion. They recommended Medicine admission and they will continue to follow along for procedural needs. Medicine was consulted who agreed to admit the patient. She was started on broad-spectrum antibiotics and blood cultures were obtained. I independently reviewed the radiographic images which revealed: I independently reviewed the EKG which revealed: I personally reviewed the lab results which revealed: I personally reviewed the patient's medical chart records which revealed: Nursing documentation reviewed. IMPRESSION: 1. Increased work of breathing 2. Left-sided pleural effusion 3. Likely infection in the retroperitoneal space DISPOSITION: Admitted Ronaldo Jones, PGY2 23 November 2019 Attending Critical Care Note: I directly delivered medical care to this critically ill patient. Timely evaluation and treatment was necessary to address the significant organ system dysfunction present in this patient. The vital organ system(s) involved included: respiratory failure. I was involved in the stabilization of this critical patient for 33 minutes. During this time I wasphysically present at the bedside during my initial exam for re-examinations at intervals coordinating this patient's care with other physicians; examining radiographs; interpreting electrocardiograms and rhythm strips; reviewing laboratory results; reviewing old records; ventilator management; discussing the patient's condition and management with the patient and family. Diagnosis: respiratory failure . Attending Attestation: I saw and evaluated the patient. I discussed the case with the resident/fellow and agree with the findings and plan as documented. Electronic Signatures: Mark Larry MD (Resident) (Signed 23-Nov-19 10:20) Authored: EVALUATION Roselyn Kaur MD (Attending) (Signed 26-Nov-19 03:09) Authored: ATTENDING ATTESTATION/ CRITICAL CARE CHARGING Co-Signer: EVALUATION Ronaldo Jones MD (Resident) (Signed 23-Nov-19 06:04) Authored: EVALUATION Last Updated: 26-Nov-19 03:09 by Roselyn Kaur MD (Attending) * ED Notes - Provider, MD Caden - 11/23/2019 12:00 AM EDT Triage Presentation: * ED Arrival Date & Time:23-Nov-2019 05:43(1) Triage Initial: * Triage Time:23-Nov-2019 06:43 * Chief ComplaintSOA * [facility] From :Transfer from ED Chief Complaint Information: * History of Present IllnessPt presents from [facility]. Pt has had SOA since August. COVID 19: * Have you had a fever (subjective or objective)Yes * Do you have shortness of breath?Yes * Do you have a cough?Yes Travel Information: * Have you traveled outside the [place] in the past 60 days?no Primary Care Physician (PCP): * PCP contacted? No. Home Medications: MedicationInstructionsSubmitted By predniSONE 2.5 mg oral tablet1 tab(s) orally - tablet orally once a day (at breakfast)Alyssa Esteves predniSONE 5 mg oral tablet1 tab(s) orally - tablet orally once a day (at breakfast)Alyssa Esteves levothyroxine 75 mcg (0.075 mg) oral tablet1 tab(s) orally - tablet orally once a day (06:00)Alyssa Esteves sennosides-docusate 8.6 mg-50 mg oral tablet1 tab(s) orally 2 times a dayMcCleary, Alyssa glucose 40% oral gel orally Alyssa Esteves glucagon1 milligram(s) intramuscular , As needed, If patient NPO, lacks IV access, May Give IM and POC BG less than or equal to 70 mg/dL, - powder for injection intramuscular Per Glucose MonitoringMcClesami, Alyssa dilTIAZem 120 mg/24 hours oral capsule, extended release1 cap(s) orally once a dayMcCleary, Alyssa insulin glargine 100 units/mL subcutaneous [id number] unit(s) subcutaneous once a day (at bedtime)Alyssa Esteves insulin lispro 100 units/mL injectable solution subcutaneous , As needed, Correction Dose, 1 units if POC BG 250 - 299 2 units if POC BG 300 - 349 3 units if POC BG 350 - 399 Call Provider if POC BG greater than 400 - solution subcutaneous (Every 1 day at 03:00, 21:00 ) Alyssa Esteves insulin lispro 100 units/mL injectable solution subcutaneous 3 times a day (after meals), As needed, Correction Dose, 2 units if POC BG 150 - 199 4 units if POC BG 200 - 249 6 units if POC BG 250 - 299 8 units if POC BG 300 - 349 10 units if POC BG 350 - 399 call provider if POC BG greater than 400 Alyssa Esteves insulin lispro 100 units/mL injectable solution5 unit(s) subcutaneous 3 times a day (after meals)Alyssa Esteves [id number] milligram(s) subcutaneous 2 times a dayCleary, Alyssa oxyCODONE 5 mg oral tablet1 tab(s) orally every 4 hours, As needed, Pain unresponsive to other medications/interventions. Hold for sedation. Alyssa Esteves acetaminophen 500 mg oral tablet1 tab(s) orally every 6 hoursMcCleAlyssa gallardo predniSONE 2.5 mg oral tablet3 tab(s) orally - tablet orally once a day (at breakfast)Alyssa Esteves rosuvastatin 10 mg oral tablet1 tab(s) orally once a dayJung Dyer I Symbicort 160 mcg-4.5 mcg/inh inhalation aerosol2 puff(s) inhaled 2 times a Jung Quezada I azelastine 205.5 mcg/inh (0.15%) nasal spray2 spray(s) nasal 2 times a Jung Quezada I Flonase 50 mcg/inh nasal spray1 spray(s) in each nostril once a dayConrad Gonzalez PharmD HumaLOG 100 units/mL subcutaneous solutionsubcutaneous 4 times a day (before meals and at bedtime) per sliding scaleConrad Gonzalez PharmD insulin lispro 100 units/mL subcutaneous solution5 unit(s) subcutaneous 3 times a day (with meals)Conrad Gonzalez PharmD furosemide 40 mg oral tablet1 tab(s) orally once a dayConrad Gonzalez PharmD nystatin 100,000 units/g topical powderApply topically to affected area 3 times a dayConrad Gonzalez PharmD potassium chloride 10 mEq oral tablet, extended release1 tab(s) orally once a dayMelisa Gonzalez PharmD venlafaxine 75 mg oral tablet1 tab(s) orally once a dayConrad Gonzalez PharmD Vitamin D2 50,000 intl units (1.25 mg) oral capsule1 cap(s) orally once a week on FridaysConrad Gonzalez PharmD Vitamin D3 5000 intl units (125 mcg) oral capsule1 cap(s) orally once a dayConrad Gonzalez PharmD Xopenex HFA 45 mcg/inh inhalation aerosol2 puff(s) inhaled every 4 hours, As Needed - PRN shortnessof breathConrad Gonzalez PharmD aspirin 81 mg oral tablet, chewable1 tab(s) orally once a dayConrad Gonzalez PharmD loratadine 10 mg oral tablet1 tab(s) orally once a dayConrad Gonzalez PharmD Florastor 250 mg oral capsule1 cap(s) orally once a dayConrad Gonzalez PharmD pantoprazole 40 mg oral delayed release tablet1 tab(s) orally once a dayConrad Gonzalez PharmD Vital Sign Assessment: * Systolic 140 mm Hg * Ajrqywmoi22 mm Hg * BP Noninvasive Ouku666.33 mm Hg * Temperature F98 degrees F * Temperature Joixzvz18.66 degrees C * Temperatureaxillary * Heart Rate 100 bpm * Respiratory Rate24 breaths per minute * Pulse Oximetry SpO2 (%)98 percent hemoglobin [place] Coma Scale: Judah Coma Scale: * GCS - Best Eye Response4= spontaneous * GCS - Best Motor Response6= obeys commands * GCS - Best Verbal Response5= oriented * Judah Coma Scale15 Triage Height/Weight: * Initial Weight (lbs)284.6 lb * Initial Weight (kg)129.1 kg * Weight Methodactual (measured) Primary Evaluation: Additional Triage Assessment: * Pain Rating (0-10):8 Allergies: Allergen/ProductAllergen TypeReactionStatusDescription * IV ContrastContrast MediaUnknownActive * CiproDrugUnknownActive * CodeineDrugUnknownActive * PenicillinDrugAnaphylaxisActivePer patient anaphylaxis, also started the PCN skin test and it hadto be stopped at stage 2 * BactrimDrugOtherActiveper patient's daughter reaction was like a burn marking on the patient's hip * MetforminDrugOtherActiveChronic diarrhea General Information: Home Medications: MedicationInstructionsSubmitted By predniSONE 2.5 mg oral tablet1 tab(s) orally - tablet orally once a day (at breakfast)Alyssa Esteves predniSONE 5 mg oral tablet1 tab(s) orally - tablet orally once a day (at breakfast)Alyssa Esteves levothyroxine 75 mcg (0.075 mg) oral tablet1 tab(s) orally - tablet orally once a day (06:00)Alyssa Esteves sennosides-docusate 8.6 mg-50 mg oral tablet1 tab(s) orally 2 times a dayAlyssa Esteves glucose 40% oral gel orally Alyssa Esteves glucagon1 milligram(s) intramuscular , As needed, If patient NPO, lacks IV access, May Give IM and POC BG less than or equal to 70 mg/dL, - powder for injection intramuscular Per Glucose MonitoringAlyssa Esteves dilTIAZem 120 mg/24 hours oral capsule, extended release1 cap(s) orally once a dayAlyssa Esteves insulin glargine 100 units/mL subcutaneous [id number] unit(s) subcutaneous once a day (at bedtime)Alyssa Esteves insulin lispro 100 units/mL injectable solution subcutaneous , As needed, Correction Dose, 1 units if POC BG 250 - 299 2 units if POC BG 300 - 349 3 units if POC BG 350 - 399 Call Provider if POC BG greater than 400 - solution subcutaneous (Every 1 day at 03:00, 21:00 ) Alyssa Esteves insulin lispro 100 units/mL injectable solution subcutaneous 3 times a day (after meals), As needed, Correction Dose, 2 units if POC BG 150 - 199 4 units if POC BG 200 - 249 6 units if POC BG 250 - 299 8 units if POC BG 300 - 349 10 units if POC BG 350 - 399 call provider if POC BG greater than 400 Alyssa Esteves insulin lispro 100 units/mL injectable solution5 unit(s) subcutaneous 3 times a day (after meals)Alyssa Esteves milligram(s) subcutaneous 2 times a dayAlyssa Esteves oxyCODONE 5 mg oral tablet1 tab(s) orally every 4 hours, As needed, Pain unresponsive to other medications/interventions. Hold for sedation. Alyssa Esteves acetaminophen 500 mg oral tablet1 tab(s) orally every 6 hoursAlyssa Gomez predniSONE 2.5 mg oral tablet3 tab(s) orally - tablet orally once a day (at breakfast)Alyssa Esteves rosuvastatin 10 mg oral tablet1 tab(s) orally once a dayJung Dyer I Symbicort 160 mcg-4.5 mcg/inh inhalation aerosol2 puff(s) inhaled 2 times a Jung Quezada I azelastine 205.5 mcg/inh (0.15%) nasal spray2 spray(s) nasal 2 times a dayJung Dyer I Flonase 50 mcg/inh nasal spray1 spray(s) in each nostril once a dayConrad Gonzalez PharmD HumaLOG 100 units/mL subcutaneous solutionsubcutaneous 4 times a day (before meals and at bedtime) per sliding scaleConrad Gonzalez PharmD insulin lispro 100 units/mL subcutaneous solution5 unit(s) subcutaneous 3 times a day (with meals)Conrad Gonzalez PharmD furosemide 40 mg oral tablet1 tab(s) orally once a dayParli PharmD, Conrad E nystatin 100,000 units/g topical powderApply topically to affected area 3 times a dayParli PharmD, Conrad E potassium chloride 10 mEq oral tablet, extended release1 tab(s) orally once a dayParli PharmD, SaraE venlafaxine 75 mg oral tablet1 tab(s) orally once a dayParli PharmD, Conrad E Vitamin D2 50,000 intl units (1.25 mg) oral capsule1 cap(s) orally once a week on FridaysParli PharmD, Conrad E Vitamin D3 5000 intl units (125 mcg) oral capsule1 cap(s) orally once a dayParli PharmD, Conrad E Xopenex HFA 45 mcg/inh inhalation aerosol2 puff(s) inhaled every 4 hours, As Needed - PRN shortnessof breathParli PharmD, Conrad E aspirin 81 mg oral tablet, chewable1 tab(s) orally once a dayParli PharmD, Conrad E loratadine 10 mg oral tablet1 tab(s) orally once a dayParli PharmD, Conrad E Florastor 250 mg oral capsule1 cap(s) orally once a dayParli PharmD, Conrad E pantoprazole 40 mg oral delayed release tablet1 tab(s) orally once a dayParli PharmD, Conrad E Hepatitis C Testing: If you have blood drawn today, as part of your care, we will also do a Hepatitis C test at no cost to you, unless you say no. If your test is positive, someone will contact you.Opt Out Pharmacy Opt In/Out Statement: Your drug prescriptions will be sent to [facility] pharmacy and will be ready for you at discharge from the Emergency Department. If you wish to decline this service, your prescriptions will be printed for you or sent to a pharmacy of your choice.Opt In Acuity: * Acuity:2 Triage Completion Time: * Triage Completion [id number] 06:46 Electronic Signatures: Lili Renae RN (Nurse) (Signed 23-Nov-19 06:46) Authored: Triage Presentation, Primary Evaluation, General Information Last Updated: 23-Nov-19 06:46 by Lili Renae RN (Nurse) References: 1. Data Referenced From ED Registration/Disposition Note 11/23/2019 5:44 AM * ED Notes - Provider, MD Caden - 11/23/2019 12:00 AM EDT Composite Section: Call Information: * Call date/time:2019-11-23 03:16:11 -04:00 Patient Demographics: * Nam Barfield * :1950 * Age69 * GenderFemale * Current Bed TypeER Referring Information: * NameGainey * [phone] * [facility] * [facility] * Summary/Med HxPleural Effusion ED Information: * Mode of TransportGround * Accepting Belinda LOPEZ, Dano Cisse * Expected Arrival date/time:2019-11-23 04:00:00 -04:00 * [id number] * Visit [id number] * Arrival date/time:2019-11-23 05:43:21 -04:00 Nurse Report: * Chief ComplaintPLEURAL EFFUSION * Report date/time:2019-11-23 05:00:00 -04:00 * HR106 * RR18 * [id number] * BP130/76 * GCS15 * Allergieslots * Gvacbe05 * Medications Given4 maribel arizmendi neb Provider Report: * Summary, 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: Increasingly short of beath. History intubated in august. Was at during the month of September. PNA plus respiratory failure. Bleed on kidneys on xarelto. Renal surgery. Then went to . Did well following this. 3/5 PMD outpatient. Increasingly short of breath. NRB 98%. Awake and interacting ok. CXR shows almost complete white out of left lung. Family states that this is new. Negative flu. From [facility]. No known exposure to covid. 1 g invanz given. Allergic to many drugs. * Documentation Audit:: <-2019 03:16:36> scmservices: { patientName : Nam Velazquez , dateOfBirth : 1950 , patientGender :[id number], patientBedType : ER , referringName : Huan phan , referringPhone : [phone] , referringCity : [place] pital : [facility] } <23-Nov-2019 03:17:59> jdmoor8: { patientInformation : Increasingly short of beath. History intubated in august. Was at during the month of September. PNA plus respiratory failure. Bleed on kidneys on xarelto. Renal surgery. Then went to . Did well following this. 3/5 PMD outpatient. Increasingly short of breath. NRB 98%. Awake and interacting ok. CXR shows almost complete white out ofleft lung. Family states that this is new. Negative flu. From [facility]. No known exposure tocovid. 1 g invanz given. Allergic to many drugs. } <23-Nov-2019 03:23:37> scmservices: { summaryMedHx : Pleural Effusion , acceptingMD_value : Nicholas LOPEZ, Dano Cisse } <23-Nov-2019 03:32:32> ldsnow2: { ukTransport : Ground , chiefComplaint : PLEURAL EFFUSION , r eportTime : [id number]:30:00.000Z } <23-Nov-2019 03:33:51> eaelam2: { heartRate :106, respiratoryRate :18, OxygenSaturation :98, s ystolicBP :130, diastolicBP :76, GCS : 15 , allergies : lots , access : 20 , Katarina seReport : 4 zofran, seteroid, neb , expectedArrival : [id number]:00:00.000Z , reportTime : [id number]:00 :00.000Z } Electronic Signatures: Lashonda Dunn (Clerical Staff) (Signed 23-Nov-19 07:18) Authored: Composite Section Last Updated: 23-Nov-19 07:18 by Lashonda Dunn (Clerical Staff) * H&P - Heriberto Lance - 11/23/2019 12:00 AM EDT Document Topic: Service/ Team: M12 - Medicine / Internal Medicine Team 12. History and Physical: - Chief Complaint: shortness of breath and left abdominal pain History of Presenting Illness: 69-year-old female with history of COPD on BiPap qhs and 3L O2 via NC, frequent UTIs, Afib (previously on rivaroxaban), HSP, HLD, HTN, nephropathy, GERD, hypothyroidism, CRISTINE, DM II and retroperitoneal bleed, presents from OSH after having shortness of breathat home with decreased O2 sats. Patient was discharged from on 10/24 after being treated for retroperitoneal bleed, during which time rivaroxaban was stopped. Patient reportedly woke up overnight with shortness of breath with reported O2 sat of 85-86% and turned O2 up to 5L from 3L. At OSH influenza test negative. UC reportedly positive for E. coli and patient given 1 dose of ertapenem due drug allergies. CXR at OSH with left lung white out and placed on 15L non-rebreather. Here at , patient afebrile with BP 145/82, RR 23 and O2 sat 93% on 5L. Labs show wbc 19.66k, anc 18.33, Na 132, K 6.9, Cr 1.4, glu 216, venous lactate 2.1, VBG with increased CO2, NTproBNP wnl, UA with small leuk est. Patient continues to complain of shortness of breath, headache and left side abdomen pain that wrap around to left flank area. Reports finishing prednisone taper on 11/21. Reports 3 BMs since 11/21 and is voiding urine regularly with no visible blood. CT of chest and abdomen show near complete collapse of left lung and pleural effusion, and CT of abd/pelv with large left retroperitoneal hematoma increased (compared to CT in 10/2019) with concern for infection within hematoma. Surgery was consulted in ED; following patient for procedural needs with no recommendations for surgical intervention currently. Medicine is admitting patient for pneumonia related to COPD exacerbation and CRISTINE with UTI. Review of Systems: Constitutional: No fevers, chills or night sweats. Skin: purpura on BLE toes Eyes: No double vision, blurred vision, change in vision. ENT: No problems with hearing, nose, sinuses, sore throat, or sore mouth. Pulmonary: + shortness of breath, no cough, hemoptysis or asthma. Cardiovascular: No chest pains, palpitations, irregular heart rate, dyspnea on exertion, orthopnea,paroxysmal nocturnal dyspnea, no claudication. GI:+ nausea, no vomiting, diarrhea, constipation, change in bowel habits, or change in stool color;left abdomen pain that wraps to left flank : No dysuria, frequency, hesitancy, change in stream, or nocturia Musculoskeletal: No arthralgias or myalgias besides abdominal pain above Endocrine: No temperature intolerance, excessive thirst or urination. Allergies: No rash or seasonal allergies. Neurologic: No paresthesias, dysesthesias, incoordination, difficulty walking, or seizures. Psychiatric: No problems of mood, depression, or clubbing. Pain: + headache and left abdominal pain above All other systems were reviewed and are negative Past 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: COPD and respiratory failure HSP HLD HTN IgA nephropathy GERD hypothyroidism CRISTINE DM II frequent UTIs Afib (previously on rivaroxaban) retroperitoneal bleed Past Surgical History: embolization of retroperitoneal bleed CCY hysterectomy when in her 30s Allergy: Penicillin->Anaphylaxis; Cipro->Unknown Codeine->Unknown IV Contrast->Unknown Metformin->Other Bactrim->Other Home Medications: [retrieved for NAM STYLES at 23 Nov 2019 12:20 from past admission]: azelastine 205.5 mcg/inh (0.15%) nasal spray 2 spray(s) nasal 2 times a day Flonase 50 mcg/inh nasal spray 1 spray(s) in each nostril once a day levothyroxine 75 mcg (0.075 mg) oral tablet 1 tab(s) orally - tablet orally once a day (06:00) nystatin 100,000 units/g topical powder Apply topically to affected area 3 times a day predniSONE 2.5 mg oral tablet 3 tab(s) orally - tablet orally once a day (at breakfast) predniSONE 2.5 mg oral tablet 1 tab(s) orally - tablet orally once a day (at breakfast) predniSONE 5 mg oral tablet 1 tab(s) orally - tablet orally once a day (at breakfast) dilTIAZem 120 mg/24 hours oral capsule, extended release 1 cap(s) orally once a day furosemide 40 mg oral tablet 1 tab(s) orally once a day loratadine 10 mg oral tablet 1 tab(s) orally once a day Symbicort 160 mcg-4.5 mcg/inh inhalation aerosol 2 puff(s) inhaled 2 times a day Xopenex HFA 45 mcg/inh inhalation aerosol 2 puff(s) inhaled every 4 hours, As Needed - PRN shortness of breath acetaminophen 500 mg oral tablet 1 tab(s) orally every 6 hours aspirin 81 mg oral tablet, chewable 1 tab(s) orally once a day oxyCODONE 5 mg oral tablet 1 tab(s) orally every 4 hours, As needed, Pain unresponsive to other medications/interventions. for sedation. venlafaxine 75 mg oral tablet 1 tab(s) orally once a day enoxaparin 40 milligram(s) subcutaneous 2 times a day glucagon 1 milligram(s) intramuscular , As needed, If patient NPO, lacks IV access, May Give IM andPOC BG less than or equal to 70 mg/dL, - powder for injection intramuscular Per Glucose Monitoring glucose 40% oral gel orally HumaLOG 100 units/mL subcutaneous solution subcutaneous 4 times a day (before meals and at bedtime)per sliding scale insulin glargine 100 units/mL subcutaneous solution 10 unit(s) subcutaneous once a day (at bedtime) insulin lispro 100 units/mL injectable solution 5 unit(s) subcutaneous 3 times a day (after meals) insulin lispro 100 units/mL injectable solution subcutaneous 3 times a day (after meals), As needed, Correction Dose; 2 units if POC BG 150 - 199 units if POC BG 200 - 249 units if POC BG 250 - 299 units if POC BG 300 - 349 units if POC BG 350 - 399provider if POC BG greater than 400 insulin lispro 100 units/mL injectable solution subcutaneous , As needed, Correction Dose; 1 units if POC BG 250 - 299 units if POC BG 300 - 349 units if POC BG 350 - 399Provider if POC BG greater than 400 - solution subcutaneous (Every 1 day at 03:00, 21:00 ) insulin lispro 100 units/mL subcutaneous solution 5 unit(s) subcutaneous 3 times a day (with meals) rosuvastatin 10 mg oral tablet 1 tab(s) orally once a day Florastor 250 mg oral capsule 1 cap(s) orally once a day pantoprazole 40 mg oral delayed release tablet 1 tab(s) orally once a day potassium chloride 10 mEq oral tablet, extended release 1 tab(s) orally once a day sennosides-docusate 8.6 mg-50 mg oral tablet 1 tab(s) orally 2 times a day Vitamin D2 50,000 intl units (1.25 mg) oral capsule 1 cap(s) orally once a week on Fridays Vitamin D3 5000 intl units (125 mcg) oral capsule 1 cap(s) orally once a day Social History: Lives in [place], [place], with son, [id number] and their two kids and 2 outside dogs; , retired - worked at [employer]; Denies sick contacts, denies any contact with any known positive COVID-19; Denies smoking (10 pack-year hx, quit 25 years ago), EtOH use, illicit drug use. Family History: Mother with HTN, CVA, Alzheimer's; father with heart disease ( of [place]); denies hx of DM or Ca Vitals: VITALS (last 24h) [retrieved for NAM STYLES at 23 Nov 2019 12:20]: Tc: 36.6 Tmax: 36.7 @ Nov 06:43 Tf: 97.9 Tmax: 98.0 @ Nov 06:43 HR: 97 (97 - 100) BP: 145/82 (139/74 - 145/82) RR: 23 (23 - 25) SpO2: 93% (93% - 98%) 129.1kg No I&O data recorded in last 24 hours Physical Examination: General: afebrile, morbidly obese female, visibly short of breath affecting speech Head: NC/AT, with no lesions or masses Eyes: PERRLA, EOMI, anicteric Mouth: visible white patches on both side of tongue, + Eduardo Neck: Supple, no masses or lymphadenopathy Heart: RRR, normal S1 and S2, no MRG Lungs: normal excursion, left lung diminished throughout, right lung CTA, on 5L via NC Abdomen: Soft, nondistended, tender upon palpating left CVA with palpable mass, + BS Extremities: trace edema in BLE, distal pulses intact Musculoskeletal: No focal tenderness or swelling Skin: purpura on digits of BLE Neuro: awake, alert, oriented x3, grossly nonfocal without localizing deficits of strength, sensation, or mentation Psychiatric: appropriate mood and thought content Active Medications: Active Meds [retrieved for NAM STYLES at 23 Nov 2019 12:20]: CARDIOVASCULAR AGENTS Diltiazem Capsule, Extended Release: 120 MG Oral once a day CENTRAL NERVOUS SYSTEM AGENTS Acetaminophen: 650 MG Oral every 4 hours Acetaminophen: 650 MG Oral once COAGULATION MODIFIERS Enoxaparin Inj. (PROPHYLAXIS): 40 MG SubCutaneous once a day HORMONES/HORMONE MODIFIERS Levothyroxine: 75 mcg Oral once a day (06:00) METABOLIC AGENTS Atorvastatin: 20 MG Oral once a day (at bedtime) Dextrose 10% - 25 gm/250 mL (IVPB): 12.5 gram IntraVenous Piggy Back Per Glucose Monitoring Dextrose 10% - 25 gm/250 mL (IVPB): 25 gram IntraVenous Piggy Back Per Glucose Monitoring Glucagon Inj.: 1 MG IntraMuscular Per Glucose Monitoring Glucose 40%: 1 tube Oral Per Glucose Monitoring Insulin Lispro (HUMALOG) Inj. 100 units/mL (Correction Factor): units SubCutaneous 3 times a day after meals Insulin Lispro (HUMALOG) Inj. 100 units/mL (Correction Factor): units SubCutaneous <User Schedule> NUTRITIONAL PRODUCTS Lactated Ringers (no additives): 1000 mL IntraVenous continuous RESPIRATORY AGENTS Albuterol / Ipratropium Inhalation NEB: 1 nebulization Inhalation every 4 hours Albuterol Inhalation MDI: 4 puff Inhalation every 4 hours Formoterol 5 mcg / Mometasone 200 mcg Inh MDI: 2 puff Inhalation 2 times a day OTHER (Pharmacy): 2 EACH <see task> GivenOnce Labs: LABS (last 48h) [retrieved for NAM STYLES at 23 Nov 2019 12:20]: x x x < [11/22 @ 10:51] 5.4 x x PT: 15.0 / PTT: x / INR: 1.2 [11/22 @ 10:21] 132 92 43 < 216 Ca: 9.9 [11/22 @ 07:38] 6.9 26 1.40 AST: 15 / ALT: 10 / AlkPhos: 129 / Bili: 0.2 / Prot: 8.2 / Alb: 1.6 [11/22 @ 07:38] WBC: 19.66 / Hb: 9.7 / Hct: 33.5 / Plt: 560 [11/22 @ 07:30] Radiology Studies/ EKG: All available laboratory and radiographic data has been reviewed at the time of this note. Pertinent results are discussed within the problem based portion of the note below. Assessment/Plan: COPD exacerbation with left lung pneumonia and left pleural effusion - CXR at OSH with left lung white out after becoming short of breath with worsening O2 sats on homeO2 (3L) - CT chest in ED with near complete collapse of left lung with perihilar focal airspace opacities, air bronchograms and large pleural effusion - WBC 19.6k, anc 18.3k, VBG with increased pCO2; NTproBNP wnl - Influenza negative at OSH; Blood Cultures x2, Sputum resp cult and viral resp culture, all pending - Cefepime IV, vancomycin IV and metronidazole started in ED - furosemide 40mg IV x1 ordered - equivalent of home Symbicort 2 puffs bid, albuterol mdi q4h prn, duonebs q4h initiated - continue O2 via NC, currently at 5L - SARS-CoV2/COVID-19 test pending - continue to monitor cbc and crp Retroperitoneal hematoma with likely infection and abdominal pain - CT abd/pelv in ED with large retroperitoneal hematoma engulfing kidney increased compared to previous CT (10/2019), new hematoma involving left paraspinal, psoas and iliac muscles concerncing for infection - Surgery consulted and following for procedural needs - wbc as as above, Bld cxs x2 pending - started on abx as above - acetaminophen 650mg q4h prn initiated UTI with CRISTINE and hyperkalemia - Cr 1.4, K 6.9 in ED; Cr baseline 0.67 on 10/22 - Pt. with hx of frequent UTIs; reportedly UC positive for E. coli at OSH and given 1 dose of ertapenem - UA in ED with small leuk est and moderate rbc, UCx pending - abx as above; given 1L bolus LR in ED - K improved to 5.4 after insulin and Kayexalate given; repeat K pending - may restart K and magnesium supplements if home furosemide restarted - continue to monitor bmp Oral Eduardo - pt. with frequent UTIs and just completed course of prednisone on 11/21 - nystatin mouth rinse qid x7 days initiated - may initiate course of fluconazole if does not improve DM, type 2 - glucose 216 in ED; Hb A1c 7.4% (07/2017), new A1c pending - on glargine and lispro at home - sliding scale insulin with achs glucose checks started - CC2 diet started Afib and HTN - rivaroxaban d/c'ed last admission - ECG in ED not showing Afib - continue diltiazem er 120mg qd for rate control and HTN HLD - continue equivalent of rosuvastatin 10mg qd (atorvastatin 20mg qhs) Hypothyroidism - tsh 3.58 (01/2017) - continue home levothyroxine 75mcg qAM Anemia of acute inflammation and chronic disease - Hb 9.7 in ED - monitor and transfuse if Hb <7 GERD - continue pantoprazole 40mg qd Morbid obesity - weight 129kg (11/22) - BMI 57.9 on 10/13, update pending - complicates all aspects of care FEN - 1L of LR in ED, recommend and can tolerate oral fluids - monitor and replace as above - Regular, CC2, cardiac diet Full Code DVT Ppx: - Enoxaparin SC Discharge planning: - Pending resolution of acute medical issues - No needs anticipated at this time Home Medications: MedicationInstructionsSubmitted By predniSONE 2.5 mg oral tablet1 tab(s) orally - tablet orally once a day (at breakfast)Alyssa Esteves predniSONE 5 mg oral tablet1 tab(s) orally - tablet orally once a day (at breakfast)Alyssa Esteves levothyroxine 75 mcg (0.075 mg) oral tablet1 tab(s) orally - tablet orally once a day (06:00)Alyssa Esteves sennosides-docusate 8.6 mg-50 mg oral tablet1 tab(s) orally 2 times a dayAlyssa Esteves glucose 40% oral gel orally Alyssa Esteves glucagon1 milligram(s) intramuscular , As needed, If patient NPO, lacks IV access, May Give IM and POC BG less than or equal to 70 mg/dL, - powder for injection intramuscular Per Glucose MonitoringAlyssa Esteves dilTIAZem 120 mg/24 hours oral capsule, extended release1 cap(s) orally once a dayAlyssa Esteves insulin glargine 100 units/mL subcutaneous dipunoww80 unit(s) subcutaneous once a day (at bedtime)Alyssa Esteves insulin lispro 100 units/mL injectable solution subcutaneous , As needed, Correction Dose, 1 units if POC BG 250 - 299 2 units if POC BG 300 - 349 3 units if POC BG 350 - 399 Call Provider if POC BG greater than 400 - solution subcutaneous (Every 1 day at 03:00, 21:00 ) Alyssa Esteves insulin lispro 100 units/mL injectable solution subcutaneous 3 times a day (after meals), As needed, Correction Dose, 2 units if POC BG 150 - 199 4 units if POC BG 200 - 249 6 units if POC BG 250 - 299 8 units if POC BG 300 - 349 10 units if POC BG 350 - 399 call provider if POC BG greater than 400 Alyssa Esteves insulin lispro 100 units/mL injectable solution5 unit(s) subcutaneous 3 times a day (after meals)Alyssa Esteves tetyjcuhbi15 milligram(s) subcutaneous 2 times a dayAlyssa Esteves oxyCODONE 5 mg oral tablet1 tab(s) orally every 4 hours, As needed, Pain unresponsive to other medications/interventions. Hold for sedation. Alyssa Esteves acetaminophen 500 mg oral tablet1 tab(s) orally every 6 hoursAlyssa Gomez predniSONE 2.5 mg oral tablet3 tab(s) orally - tablet orally once a day (at breakfast)Alyssa Esteves rosuvastatin 10 mg oral tablet1 tab(s) orally once a dayJung Dyer I Symbicort 160 mcg-4.5 mcg/inh inhalation aerosol2 puff(s) inhaled 2 times a dayJung Dyer I azelastine 205.5 mcg/inh (0.15%) nasal spray2 spray(s) nasal 2 times a dayJung Dyer I Flonase 50 mcg/inh nasal spray1 spray(s) in each nostril once a dayConrad Gonzalez PharmD HumaLOG 100 units/mL subcutaneous solutionsubcutaneous 4 times a day (before meals and at bedtime) per sliding scaleConrad Gonzalez PharmD insulin lispro 100 units/mL subcutaneous solution5 unit(s) subcutaneous 3 times a day (with meals)Conrad Gonzalez PharmD furosemide 40 mg oral tablet1 tab(s) orally once a dayConrad Gonzalez PharmD nystatin 100,000 units/g topical powderApply topically to affected area 3 times a dayConrad Gonzalez PharmD potassium chloride 10 mEq oral tablet, extended release1 tab(s) orally once a dayParli PharmD, SaraE venlafaxine 75 mg oral tablet1 tab(s) orally once a dayParli PharmD, Conrad E Vitamin D2 50,000 intl units (1.25 mg) oral capsule1 cap(s) orally once a week on FridaysParli PharmD, Conrad E Vitamin D3 5000 intl units (125 mcg) oral capsule1 cap(s) orally once a dayParli PharmD, Conrad E Xopenex HFA 45 mcg/inh inhalation aerosol2 puff(s) inhaled every 4 hours, As Needed - PRN shortnessof breathParli PharmD, Conrad E aspirin 81 mg oral tablet, chewable1 tab(s) orally once a dayParli PharmD, Conrad E loratadine 10 mg oral tablet1 tab(s) orally once a dayParli PharmD, Conrad E Florastor 250 mg oral capsule1 cap(s) orally once a dayParli PharmD, Conrad E pantoprazole 40 mg oral delayed release tablet1 tab(s) orally once a dayParli PharmD, Conrad E Attestation Statements : Attending Physician Comments: I saw and evaluated the patient. I discussed the case with the VANIA and agree w/ the findings and plan as documented. I contributed significantly to the assessment and recommendations for this patient. Patient presents w/ SOA and hx of acute on chronic respiratory failure. Patient appears to have increased WOB Starting patient on IV lasix Pulm consulted for thoracentesis Continue IV abx for psoas abscess. Electronic Signatures: Heriberto Lance MD (Attending) (Signed 23-Nov-19 15:16) Authored: Attestation Statements Co-Signer: EVALUATION Deng Brumfield APRN (Nurse Practitioner) (Signed 23-Nov-19 13:41) Authored: DOCUMENT TOPIC, EVALUATION Last Updated: 23-Nov-19 15:16 by Heriberto Lance MD (Attending) * Consults - Otis Metzger - 11/23/2019 12:00 AM EDT Consultation Service: [place]/ [place] [facility] [place] C. Requesting Attending Physician: Heriberto Lance MD(Attending): Attending, Medicine - Internal, Medicine Chief Complaint: Requesting ServiceER Reason for ConsultRetroperitoneal hematoma Consult Note: - 23 November 2019 NAM STYLES 1950, 69y, female Surgery Consultation Note Consultation Requested By ER Reason For Consultation retroperitoneal hematoma History of Present Illness NAM STYLES is a 69y female with AFib on Xarelto recently [place] [facility] [place] spontaneous retroperitoneal hematoma treated with IR embolization who presents to the ER again today with numerouscomplaints and findings, one of which is air within her retroperitoneal hematoma. She also has a pneumonia and pleural effusion. She complains of some pain in her back. Review of Systems All 14 systems reviewed and negative except as documented above in the HPI. Past 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 COPD DM HTN AHRF IgA nephropathy AFib on Xarelto Hiatal hernia Past Surgical History IR embolization of branch of left renal vein Social History Tobacco: Denies EtOH: Denies Illicits: Denies Family History Reviewed and non-contributory to this hospitalization. Current Inpatient Medications Active Meds [retrieved for NAM STYLES at 23 Nov 2019 15:00]: CARDIOVASCULAR AGENTS Diltiazem: 30 MG Oral once Diltiazem Capsule, Extended Release: 180 MG Oral once a day Diltiazem Capsule, Extended Release: 120 MG Oral once a day CENTRAL NERVOUS SYSTEM AGENTS Acetaminophen: 650 MG Oral every 4 hours Ondansetron Disintegrating Tablet: 4 MG Oral every 6 hours COAGULATION MODIFIERS Enoxaparin Inj. (PROPHYLAXIS): 40 MG SubCutaneous once a day GASTROINTESTINAL AGENTS Pantoprazole: 40 MG Oral once a day HORMONES/HORMONE MODIFIERS Levothyroxine: 75 mcg Oral once a day (06:00) MethylPREDNISolone Inj.: 125 MG IntraVenously every 6 hours METABOLIC AGENTS Atorvastatin: 20 MG Oral once a day (at bedtime) Dextrose 10% - 25 gm/250 mL (IVPB): 12.5 gram IntraVenous Piggy Back Per Glucose Monitoring Dextrose 10% - 25 gm/250 mL (IVPB): 25 gram IntraVenous Piggy Back Per Glucose Monitoring Glucagon Inj.: 1 MG IntraMuscular Per Glucose Monitoring Glucose 40%: 1 tube Oral Per Glucose Monitoring Insulin Lispro (HUMALOG) Inj. 100 units/mL (Correction Factor): units SubCutaneous 3 times a day after meals Insulin Lispro (HUMALOG) Inj. 100 units/mL (Correction Factor): units SubCutaneous <User Schedule> RESPIRATORY AGENTS Albuterol / Ipratropium Inhalation NEB: 1 nebulization Inhalation every 4 hours Albuterol Inhalation MDI: 4 puff Inhalation every 4 hours Formoterol 5 mcg / Mometasone 200 mcg Inh MDI: 2 puff Inhalation 2 times a day Hypertonic 3% Saline Inhalation NEB: 3 mL Inhalation 2 times a day TOPICAL AGENTS Nystatin 412783 units/mL: 5 mL Swish and Swallow 4 times a day OTHER (Pharmacy): 1 EACH <see task> GivenOnce (Pharmacy): 1 EACH <see task> GivenOnce Allergies Penicillin->Anaphylaxis; Cipro->Unknown Codeine->Unknown IV Contrast->Unknown Metformin->Other Bactrim->Other Physical Examination VITALS (last 24h) [retrieved for NAM STYLES at 23 Nov 2019 15:00]: Tc: 36.7 Tmax: 36.7 @ Nov 12:31 Tf: 98.0 Tmax: 98.0 @ Nov 12:31 HR: 95 (92 - 100) BP: 147/64 (133/65 - 145/82) RR: 23 (20 - 30) SpO2: 94% (91% - 98%) Height:0.0cm Weight: 129.1kg BMI: unknown General: No acute distress. Resting comfortably. HEENT: NCAT, MMM. Trachea midline. Neck soft, supple. No JVD. Cardiovascular: Regular rhythm, normal rate. Normotensive. Respiratory: Symmetric chest expansion, increased work of breathing. Abdomen: Soft, minimally tender, nondistended. Extremities: 2+ radial, carotid, and dorsalis pedis pulses bilaterally. Lymph: No cervical, axillary, or cervical lymphadenopathy. Skin: Skin is well perfused with good turgor and no rash. Musculoskeletal: No obvious skeletal abnormalities. Neuro: Awake, alert, oriented x 3. GCS 15. Laboratory Studies LABS (last 24h) [retrieved for NAM STYLES at 23 Nov 2019 15:00]: x x x < [11/22 @ 10:51] 5.4 x x PT: 15.0 / PTT: x / INR: 1.2 [11/22 @ 10:21] 132 92 43 < 216 Ca: 9.9 [11/22 @ 07:38] 6.9 26 1.40 AST: 15 / ALT: 10 / AlkPhos: 129 / Bili: 0.2 / Prot: 8.2 / Alb: 1.6 [11/22 @ 07:38] WBC: 19.66 / Hb: 9.7 / Hct: 33.5 / Plt: 560 [11/22 @ 07:30] Radiology I have personally reviewed this patient's imaging. CT AP with retroperitoneal hematoma containing gas. Assessment & Plan NAM STYLES is a 69y female with recent spontaneous retroperitoneal hematoma who returns to ER with numerous complaints and findings. She has a leukocytosis but is afebrile and HDS. There is no surgical intervention indicated at this time. If drainage is desired, will have to call IR for perc utaneous drain placement. SGE to signoff. This new consult was discussed with Dr. Story. Marvin Araay MD, PGY-3 General Surgery Pager: [phone] Attending Attestation Statement: I saw and evaluated the patient with the resident/fellow. I discussed the case with the resident/fellow and agree with the findings and plan as documented. Electronic Signatures: Otis Medina MD, I (Attending) (Signed 01-Dec-19 10:05) Authored: CRITICAL CARE CHARGING STATEMENT/ATTENDING ATTESTATION Co-Signer: CONSULTATION SERVICE, EVALUATION Misael Araya MD (Resident) (Signed 23-Nov-19 15:05) Authored: CONSULTATION SERVICE, EVALUATION Last Updated: 01-Dec-19 10:05 by Otis Medina MD, I (Attending) documented in this encounter Plan of Treatment Upcoming Encounters Date Type Department Care Team (Late st Contact Info) Description 08/08/2024 1:00 PM EST Office Visit [facility] Nephrology, Bone & Mineral Metabolism [address] [place] [address] Diana Ahumada MD [address] [place] [address] 12/30/2024 10:15 AM EDT Office Visit [facility] [address] [place] [address] Luis Olivares MD [address] [place] [address] Pending Results Name Type Priority Associated Diagnoses Date /Time Type and Screen Lab STAT 0 10:22 AM EDT documented as of this encounter Procedures Procedure Name Priority Date/Time Associated Diagnosis Comments GLUCOSE POINT OF CARE DC Routine 12/27/2019 6:32 PM EDT GLUCOSE POINT OF CARE DC Routine 12/27/2019 4:40 PM EDT BASIC METABOLIC PANEL, PLASMA STAT 12/27/2019 3:57 PM EDT GLUCOSE POINT OF CARE DC Routine 12/27/2019 11:49 AM EDT GLUCOSE POINT OF CARE DC Routine 12/27/2019 8:27 AM EDT GLUCOSE POINT OF CARE DC Routine 12/26/2019 9:25 PM EDT GLUCOSE POINT OF CARE DC Routine 12/26/2019 5:31 PM EDT GLUCOSE POINT OF CARE DC Routine 12/26/2019 10:57 AM EDT GLUCOSE POINT OF CARE DC Routine 12/26/2019 8:18 AM EDT CBC W/O DIFFERENTIAL Routine 12/26/2019 3:05 AM EDT MAGNESIUM, PLASMA Routine 12/26/2019 3:0 5 AM EDT BASIC METABOLIC PANEL, PLASMA Routine 12/26/2019 3:05 AM EDT GLUCOSE POINT OF CARE DC Routine 12/25/2019 9:38 PM EDT GLUCOSE POINT OF CARE DC Routine 12/25/2019 5:33 PM EDT GLUCOSE POINT OF CARE DC Routine 12/25/2019 11:28 AM EDT GLUCOSE POINT OF CARE DC Routine 12/25/2019 8:26 AM EDT GLUCOSE POINT OF CARE DC Routine 12/24/2019 7:44 PM EDT GLUCOSE POINT OF CARE DC Routine 12/24/2019 4:52 PM EDT GLUCOSE POINT OF CARE DC Routine 12/24/2019 11:29 AM EDT GLUCOSE POINT OF CARE DC Routine 12/24/2019 8:10 AM EDT GLUCOSE POINT OF CARE DC Routine 12/23/2019 9:44 PM EDT GLUCOSE POINT OF CARE DC Routine 12/23/2019 3:53 PM EDT GLUCOSE POINT OF CARE DC Routine 12/23/2019 11:06 AM EDT GLUCOSE POINT OF CARE DC Routine 12/23/2019 8:09 AM EDT GLUCOSE POINT OF CARE DC Routine 12/22/2019 9:26 PM EDT GLUCOSE POINT OF CARE DC Routine 12/22/2019 4:22 PM EDT GLUCOSE POINT OF CARE DC Routine 12/22/2019 11:26 AM EDT GLUCOSE POINT OF CARE DC Routine 12/22/2019 7:34 AM EDT GLUCOSE POINT OF CARE DC Routine 12/21/2019 8:58 PM EDT GLUCOSE POINT OF CARE DC Routine 12/21/2019 4:59 PM EDT GLUCOSE POINT OF CARE DC Routine 12/21/2019 11:53 AM EDT GLUCOSE POINT OF CARE DC Routine 12/21/2019 8:02 AM EDT GLUCOSE POINT OF CARE DC Routine 12/20/2019 8:14 PM EDT GLUCOSE POINT OF CARE DC Routine 12/20/2019 5:[address] ABDOMEN WO IV CONTRAST Routine 12/20/2019 2:14 PM EDT GLUCOSE POINT OF CARE DC Routine 12/20/2019 11:55 AM EDT GLUCOSE POINT OF CARE DC Routine 12/20/2019 8:04 AM EDT WBC DIFFERENTIAL Routine 12/20/2019 4:30 AM EDT CBC W/O DIFFERENTIAL Routine 12/20/2019 4:30 AM EDT BASIC METABOLIC PANEL, PLASMA Routine 12/20/2019 4:30 AM EDT GLUCOSE POINT OF CARE DC Routine 12/19/2019 8:59 PM EDT GLUCOSE POINT OF CARE DC Routine 12/19/2019 3:38 PM EDT GLUCOSE POINT OF CARE DC Routine 12/19/2019 11:45 AM EDT GLUCOSE POINT OF CARE DC Routine 12/19/2019 8:18 AM EDT ECG ADULT 12/19/2019 GLUCOSE POINT OF CARE DC Routine 12/18/2019 4:42 PM EDT GLUCOSE POINT OF CARE DC Routine 12/18/2019 11:28 AM EDT GLUCOSE POINT OF CARE DC Routine 12/18/2019 7:44 AM EDT GLUCOSE POINT OF CARE DC Routine 12/17/2019 8:55 PM EDT GLUCOSE POINT OF CARE DC Routine 12/17/2019 4:23 PM EDT GLUCOSE POINT OF CARE DC Routine 12/17/2019 12:18 PM EDT TROPONIN T, HIGH SENSITIVITY, 2 HOUR, PLASMA Timed 12/17/2019 9:34 AM EDT GLUCOSE POINT OF CARE DC Routine 12/17/2019 8:19 AM EDT TROPONIN T, HIGH SENSITIVITY, 0 HOUR, PLASMA, REFLEX TO 2 HOUR STAT 12/17/2019 6:03 AM EDT ECG ADULT 12/17/2019 GLUCOSE POINT OF CARE DC Routine 12/16/2019 7:59 PM EDT GLUCOSE POINT OF CARE DC Routine 12/16/2019 4:36 PM EDT GLUCOSE POINT OF CARE DC Routine 12/16/2019 11:40 AM EDT GLUCOSE POINT OF CARE DC Routine 12/16/2019 7:33 AM EDT WBC DIFFERENTIAL Routine 12/16/2019 4:16 AM EDT CBC W/O DIFFERENTIAL Routine 12/16/2019 4:16 AM EDT POTASSIUM, PLASMA Routine 12/16/2019 4:1 6 AM EDT ECG ADULT 12/16/2019 GLUCOSE POINT OF CARE DC Routine 12/15/2019 7:37 PM EDT GLUCOSE POINT OF CARE DC Routine 12/15/2019 3:28 PM EDT GLUCOSE POINT OF CARE DC Routine 12/15/2019 12:10 PM EDT GLUCOSE POINT OF CARE DC Routine 12/15/2019 9:33 AM EDT GLUCOSE POINT OF CARE DC Routine 12/14/2019 9:54 PM EDT GLUCOSE POINT OF CARE DC Routine 12/14/2019 5:48 PM EDT CHLAMYDIA TRACHOMATIS DNA BY PCR Routine 12/14/2019 4:56 PM EDT NEISSERIA GONORRHEA DNA BY PCR Routine 12/14/2019 4:56 PM EDT GLUCOSE POINT OF CARE DC Routine 12/14/2019 12:22 PM EDT GLUCOSE POINT OF CARE DC Routine 12/14/2019 8:37 AM EDT GLUCOSE POINT OF CARE DC Routine 12/13/2019 9:02 PM EDT TREPONEMA PALLIDUM (SYPHILIS) ANTIBODIES WITH REFLEX TO RPR AND RPR TITER (THOSE WITH NO KNOWN SYPHILIS) Routine 12/13/2019 6:01 PM EDT HIV 1/2 ANTIBODY/ANTIGEN SCREEN WITH REFLEX TO HIV I/II DIFFERENTIATION Routine 12/13/2019 6:01 PM EDT HEPATITIS A ANTIBODY IGG Routine 12/13/2019 6:01 PM EDT HEPATITIS C ANTIBODY W/REFLEX TO HCV QUANT PCR Routine 12/13/2019 6:01 PM EDT HEPATITIS B CORE TOTAL AB (IGG AND IGM) Routine 12/13/2019 6:01 PM EDT RPR WITH REFLEX TO TITER (THOSE WITH KNOWN SYPHILIS) Routine 12/13/2019 6:01 PM EDT HEPATITIS B SURFACE ANTIBODY Routine 12/13/2019 6:01 PM EDT HEPATITIS B SURFACE ANTIGEN Routine 12/13/2019 6:01 PM EDT WBC DIFFERENTIAL Routine 12/13/2019 6:01 PM EDT CBC W/O DIFFERENTIAL Routine 12/13/2019 6:01 PM EDT C-REACTIVE PROTEIN, PLASMA Routine 12/13/2019 6:01 PM EDT BASIC METABOLIC PANEL, PLASMA Routine 12/13/2019 6:01 PM EDT GLUCOSE POINT OF CARE DC Routine 12/13/2019 5:[address] ABDOMEN PELVIS WO IV CONTRAST Routine 12/13/2019 12:57 PM EDT GLUCOSE POINT OF CARE DC Routine 12/13/2019 12:00 PM EDT GLUCOSE POINT OF CARE DC Routine 12/13/2019 7:58 AM EDT GLUCOSE POINT OF CARE DC Routine 12/12/2019 8:01 PM EDT GLUCOSE POINT OF CARE DC Routine 12/12/2019 6:43 PM EDT GLUCOSE POINT OF CARE DC Routine 12/12/2019 11:14 AM EDT GLUCOSE POINT OF CARE DC Routine 12/12/2019 7:48 AM EDT GLUCOSE POINT OF CARE DC Routine 12/11/2019 9:02 PM EDT GLUCOSE POINT OF CARE DC Routine 12/11/2019 4:18 PM EDT GLUCOSE POINT OF CARE DC Routine 12/11/2019 11:26 AM EDT GLUCOSE POINT OF CARE DC Routine 12/11/2019 8:11 AM EDT GLUCOSE POINT OF CARE DC Routine 12/10/2019 8:19 PM EDT GLUCOSE POINT OF CARE DC Routine 12/10/2019 3:49 PM EDT GLUCOSE POINT OF CARE DC Routine 12/10/2019 11:32 AM EDT GLUCOSE POINT OF CARE DC Routine 12/10/2019 7:59 AM EDT WBC DIFFERENTIAL Routine 12/10/2019 3:49 AM EDT CBC W/O DIFFERENTIAL Routine 12/10/2019 3:49 AM EDT C-REACTIVE PROTEIN, PLASMA Routine 12/10/2019 3:49 AM EDT BASIC METABOLIC PANEL, PLASMA Routine 12/10/2019 3:49 AM EDT GLUCOSE POINT OF CARE DC Routine 12/09/2019 7:42 PM EDT GLUCOSE POINT OF CARE DC Routine 12/09/2019 5:10 PM EDT VAS US VENOUS DUPLEX UPPER EXTREMITY UNILATERAL Routine 12/09/2019 3:15 PM EDT SURGPATH DATA CONVERSION Routine 12/09/2019 3:05 PM EDT GLUCOSE POINT OF CARE DC Routine 12/09/2019 12:10 PM EDT TISSUE CULTURE AND GRAM STAIN Routine 12/09/2019 10:30 AM EDT GRAM STAIN Routine 12/09/2019 10:30 AM EDT GLUCOSE POINT OF CARE DC Routine 12/09/2019 8:23 AM EDT GLUCOSE POINT OF CARE DC Routine 12/09/2019 3:03 AM EDT GLUCOSE POINT OF CARE DC Routine 12/08/2019 9:01 PM EDT GLUCOSE POINT OF CARE DC Routine 12/08/2019 4:24 PM EDT GLUCOSE POINT OF CARE DC Routine 12/08/2019 11:21 AM EDT GLUCOSE POINT OF CARE DC Routine 12/08/2019 8:12 AM EDT GLUCOSE POINT OF CARE DC Routine 12/07/2019 8:59 PM EDT GLUCOSE POINT OF CARE DC Routine 12/07/2019 4:47 PM EDT GLUCOSE POINT OF CARE DC Routine 12/07/2019 12:43 PM EDT XR ABDOMEN 1 VIEW Routine 12/07/2019 9:1 5 AM EDT GLUCOSE POINT OF CARE DC Routine 12/07/2019 7:34 AM EDT GLUCOSE POINT OF CARE DC Routine 12/06/2019 8:18 PM EDT GLUCOSE POINT OF CARE DC Routine 12/06/2019 5:30 PM EDT GLUCOSE POINT OF CARE DC Routine 12/06/2019 11:53 AM EDT GLUCOSE POINT OF CARE DC Routine 12/06/2019 8:19 AM EDT GLUCOSE POINT OF CARE DC Routine 12/05/2019 8:39 PM EDT GLUCOSE POINT OF CARE DC Routine 12/05/2019 4:38 PM EDT GLUCOSE POINT OF CARE DC Routine 12/05/2019 11:51 AM EDT GLUCOSE POINT OF CARE DC Routine 12/05/2019 7:47 AM EDT ASPARTATE AMINOTRANSFERASE, PLASMA Routine 12/05/2019 2:40 AM EDT ALANINE AMINOTRANSFERASE, PLASMA Routine 12/05/2019 2:40 AM EDT WBC DIFFERENTIAL Routine 12/05/2019 2:40 AM EDT CBC W/O DIFFERENTIAL Routine 12/05/2019 2:40 AM EDT TOTAL PROTEIN, PLASMA Routine 12/05/2019 2:40 AM EDT ALKALINE PHOSPHATASE, PLASMA Routine 12/05/2019 2:40 AM EDT CONJUGATED BILIRUBIN, PLASMA Routine 12/05/2019 2:40 AM EDT TOTAL BILIRUBIN, PLASMA Routine 12/05/19 20 2:40 AM EDT RENAL FUNCTION PANEL, PLASMA Routine 12/05/2019 2:40 AM EDT GLUCOSE POINT OF CARE DC Routine 12/04/2019 8:57 PM EDT GLUCOSE POINT OF CARE DC Routine 12/04/2019 3:51 PM EDT GLUCOSE POINT OF CARE DC Routine 12/04/2019 11:04 AM EDT GLUCOSE POINT OF CARE DC Routine 12/04/2019 8:16 AM EDT GLUCOSE POINT OF CARE DC Routine 12/03/2019 8:54 PM EDT GLUCOSE POINT OF CARE DC Routine 12/03/2019 4:53 PM EDT GLUCOSE POINT OF CARE DC Routine 12/03/2019 11:59 AM EDT CBC W/O DIFFERENTIAL Routine 12/03/2019 10:13 AM EDT GLUCOSE POINT OF CARE DC Routine 12/03/2019 8:17 AM EDT GLUCOSE POINT OF CARE DC Routine 12/02/2019 7:54 PM EDT GLUCOSE POINT OF CARE DC Routine 12/02/2019 5:01 PM EDT GLUCOSE POINT OF CARE DC Routine 12/02/2019 11:41 AM EDT GLUCOSE POINT OF CARE DC Routine 12/02/2019 8:12 AM EDT CBC W/O DIFFERENTIAL Routine 12/02/2019 2:50 AM EDT BASIC METABOLIC PANEL, PLASMA Routine 12/02/2019 2:50 AM EDT GLUCOSE POINT OF CARE DC Routine 12/01/2019 8:19 PM EDT CBC W/O DIFFERENTIAL Timed 12/01/2019 5:11 PM EDT GLUCOSE POINT OF CARE DC Routine 12/01/2019 4:23 PM EDT GLUCOSE POINT OF CARE DC Routine 12/01/2019 1:[address] GUIDED DRAIN PLACEMENT PERITONEAL OR RETROPERITONEAL Routine 12/01/2019 12:32 PM EDT STEVE, FLUID DC Routine 12/01/2019 12:21 PM EDT FUNGAL CULTURE, STERILE BODY FLUID (NOT CSF) AND STEVE Routine 12/01/2019 12:21 PM EDT GRAM STAIN, ABSCESS Routine 12/01/2019 1 2:21 PM EDT AFB CULTURE, NON RESPIRATORY SOURCE AND ACID FAST STAIN Routine 12/01/2019 12:21 PM EDT [id number] Routine 12/01/2019 12:21 PM EDT AFB STAIN Routine 12/01/2019 12:21 PM EDT GLUCOSE POINT OF CARE DC Routine 12/01/2019 9:02 AM EDT GLUCOSE POINT OF CARE DC Routine 12/01/2019 7:29 AM EDT WBC DIFFERENTIAL Routine 12/01/2019 3:42 AM EDT CBC W/O DIFFERENTIAL Routine 12/01/2019 3:42 AM EDT BASIC METABOLIC PANEL, PLASMA Routine 12/01/2019 3:42 AM EDT CYTO DATA CONVERSION Routine 12/01/2019 12:00 AM EDT GLUCOSE POINT OF CARE DC Routine 11/30/2019 8:51 PM EDT XR ABDOMEN 1 VIEW Routine 11/30/2019 6:3 8 PM EDT GLUCOSE POINT OF CARE DC Routine 11/30/2019 4:27 PM EDT GLUCOSE POINT OF CARE DC Routine 11/30/2019 2:16 PM EDT GLUCOSE POINT OF CARE DC Routine 11/30/2019 11:54 AM EDT GLUCOSE POINT OF CARE DC Routine 11/30/2019 7:42 AM EDT PROCALCITONIN, PLASMA Routine 11/30/2019 4:43 AM EDT WBC DIFFERENTIAL Routine 11/30/2019 4:43 AM EDT CBC W/O DIFFERENTIAL Routine 11/30/2019 4:43 AM EDT C-REACTIVE PROTEIN, PLASMA Routine 11/30/2019 4:43 AM EDT BASIC METABOLIC PANEL, PLASMA Routine 11/30/2019 4:43 AM EDT GLUCOSE POINT OF CARE DC Routine 11/29/2019 8:36 PM EDT GLUCOSE POINT OF CARE DC Routine 11/29/2019 4:41 PM EDT GLUCOSE POINT OF CARE DC Routine 11/29/2019 11:51 AM EDT GLUCOSE POINT OF CARE DC Routine 11/29/2019 7:03 AM EDT XR CHEST 1 VIEW Routine 11/29/2019 4:19 AM EDT WBC DIFFERENTIAL Routine 11/29/2019 4:19 AM EDT CBC W/O DIFFERENTIAL Routine 11/29/2019 4:19 AM EDT PHOSPHORUS, PLASMA Routine 11/29/2019 4: 19 AM EDT MAGNESIUM, PLASMA Routine 11/29/2019 4:1 9 AM EDT BASIC METABOLIC PANEL, PLASMA Routine 11/29/2019 4:19 AM EDT GLUCOSE POINT OF CARE DC Routine 11/28/2019 8:37 PM EDT GLUCOSE POINT OF CARE DC Routine 11/28/2019 4:42 PM EDT XR CHEST 1 VIEW Routine 11/28/2019 1:03 PM EDT GLUCOSE POINT OF CARE DC Routine 11/28/2019 11:[address] CHEST WO IV CONTRAST Routine 11/28/19 20 10:30 AM EDT GLUCOSE POINT OF CARE DC Routine 11/28/2019 7:33 AM EDT CBC W/O DIFFERENTIAL Routine 11/28/2019 4:22 AM EDT WBC DIFFERENTIAL Routine 11/28/2019 3:33 AM EDT CBC W/O DIFFERENTIAL Routine 11/28/2019 3:33 AM EDT PHOSPHORUS, PLASMA Routine 11/28/2019 3: 33 AM EDT MAGNESIUM, PLASMA Routine 11/28/2019 3:3 3 AM EDT BASIC METABOLIC PANEL, PLASMA Routine 11/28/2019 3:33 AM EDT GLUCOSE POINT OF CARE DC Routine 11/27/2019 9:00 PM EDT GLUCOSE POINT OF CARE DC Routine 11/27/2019 4:56 PM EDT LACTATE,ARTERIAL,POINT OF CARE DC Routine 11/27/2019 4:40 PM EDT TOTAL HEMOGLOBIN,POINT OF CARE DC Routine 11/27/2019 4:40 PM EDT CHLORIDE, POINT OF CARE DC Routine 11/27/2019 4:40 PM EDT POTASSIUM, POINT OF CARE Routine 11/27/2019 4:40 PM EDT ICA, POINT OF CARE DC Routine 11/27/2019 4:40 PM EDT HEMATOCRIT, POINT OF CARE DC Routine 11/27/2019 4:40 PM EDT ABG, POINT OF CARE DC Routine 11/27/2019 4:40 PM EDT POCT SODIUM DC Routine 11/27/2019 4:40 PM EDT GLUCOSE POINT OF CARE DC Routine 11/27/2019 4:40 PM EDT GLUCOSE POINT OF CARE DC Routine 11/27/2019 12:03 PM EDT GLUCOSE POINT OF CARE DC Routine 11/27/2019 9:04 AM EDT XR CHEST 1 VIEW Routine 11/27/2019 1:30 AM EDT GLUCOSE POINT OF CARE DC Routine 11/26/2019 8:27 PM EDT XR CHEST 1 VIEW Routine 11/26/2019 1:10 PM EDT GLUCOSE POINT OF CARE DC Routine 11/26/2019 12:26 PM EDT GLUCOSE POINT OF CARE DC Routine 11/26/2019 8:51 AM EDT CBC W/O DIFFERENTIAL Routine 11/26/2019 5:15 AM EDT MAGNESIUM, PLASMA Routine 11/26/2019 5:1 5 AM EDT COMPREHENSIVE METABOLIC PANEL, PLASMA Routine 11/26/2019 5:15 AM EDT BASIC METABOLIC PANEL, PLASMA Routine 11/26/2019 5:15 AM EDT XR CHEST 1 VIEW Routine 11/26/2019 1:38 AM EDT GLUCOSE POINT OF CARE DC Routine 11/25/2019 8:12 PM EDT RESPIRATORY CULTURE AND GRAM STAIN Routine 11/25/2019 4:45 PM EDT GRAM STAIN Routine 11/25/2019 4:45 PM EDT VANCOMYCIN, PEAK, PLASMA Timed 11/25/2019 4:45 PM EDT GLUCOSE POINT OF CARE DC Routine 11/25/2019 4:38 PM EDT GLUCOSE POINT OF CARE DC Routine 11/25/2019 12:10 PM EDT VANCOMYCIN, TROUGH, PLASMA Timed 11/25/2019 10:20 AM EDT GLUCOSE POINT OF CARE DC Routine 11/25/2019 7:05 AM EDT WBC DIFFERENTIAL Routine 11/25/2019 4:24 AM EDT CBC W/O DIFFERENTIAL Routine 11/25/2019 4:24 AM EDT PHOSPHORUS, PLASMA Routine 11/25/2019 4: 24 AM EDT MAGNESIUM, PLASMA Routine 11/25/2019 4:2 4 AM EDT BASIC METABOLIC PANEL, PLASMA Routine 11/25/2019 4:24 AM EDT GLUCOSE POINT OF CARE DC Routine 11/25/2019 2:56 AM EDT XR CHEST 1 VIEW Routine 11/25/2019 1:20 AM EDT GLUCOSE POINT OF CARE DC Routine 11/24/2019 8:18 PM EDT GLUCOSE POINT OF CARE DC Routine 11/24/2019 5:30 PM EDT XR CHEST 1 VIEW Routine 11/24/2019 1:41 PM EDT STEVE, FLUID DC Routine 11/24/2019 1:29 PM EDT BODY FLUID CELL DIFFERENTIAL Routine 11/24/2019 1:29 PM EDT CHOLESTEROL FLUID (SO) Routine 0 1:29 PM EDT FUNGAL CULTURE, STERILE BODY FLUID (NOT CSF) AND STEVE Routine 11/24/2019 1:29 PM EDT AFB CULTURE, NON RESPIRATORY SOURCE AND ACID FAST STAIN Routine 11/24/2019 1:29 PM EDT LACTATE DEHYDROGENASE, PLEURAL FLUID Routine 11/24/2019 1:29 PM EDT BLOOD CULTURE (AEROBIC/ANAEROBIC SET) Routine 11/24/2019 1:29 PM EDT BODY FLUID CULTURE AND GRAM STAIN Routine 11/24/2019 1:29 PM EDT AFB STAIN Routine 11/24/2019 1:29 PM EDT GRAM STAIN Routine 11/24/2019 1:29 PM EDT BODY FLUID CELL COUNT W/O DIFF Routine 11/24/2019 1:29 PM EDT TRIGLYCERIDES, BODY FLUIDS (SO) Routine 11/24/2019 1:29 PM EDT TOTAL PROTEIN, PERITONEAL FLUID Routine 11/24/2019 1:29 PM EDT GLUCOSE, PLEURAL FLUID Routine 0 1:29 PM EDT ALBUMIN, PLEURAL FLUID Routine 0 1:29 PM EDT PH, PLEURAL FLUID Routine 11/24/2019 1:2 9 PM EDT GLUCOSE POINT OF CARE DC Routine 11/24/2019 1:19 PM EDT GLUCOSE POINT OF CARE DC Routine 11/24/2019 8:07 AM EDT WBC DIFFERENTIAL Routine 11/24/2019 4:55 AM EDT CBC W/O DIFFERENTIAL Routine 11/24/2019 4:55 AM EDT C-REACTIVE PROTEIN, PLASMA Routine 11/24/2019 4:55 AM EDT MAGNESIUM, PLASMA Routine 11/24/2019 4:5 5 AM EDT RENAL FUNCTION PANEL, PLASMA Routine 11/24/2019 4:55 AM EDT XR CHEST 1 VIEW Routine 11/24/2019 12:33 AM EDT CYTO DATA CONVERSION Routine 11/24/2019 12:00 AM EDT GLUCOSE POINT OF CARE DC Routine 11/23/2019 9:01 PM EDT HEMOGLOBIN A1C Routine 11/23/2019 4:17 PM EDT GLUCOSE POINT OF CARE DC Routine 11/23/2019 4:16 PM EDT HEMOGLOBIN A1C Routine 11/23/2019 2:45 PM EDT POTASSIUM, PLASMA STAT 11/23/2019 2:4 4 PM EDT GLUCOSE POINT OF CARE DC Routine 11/23/2019 10:53 AM EDT BLOOD CULTURE (AEROBIC/ANAEROBIC SET) Routine 11/23/2019 10:52 AM EDT BLOOD CULTURE (AEROBIC/ANAEROBIC SET) Routine 11/23/2019 10:52 AM EDT POTASSIUM, PLASMA STAT 11/23/2019 10: 51 AM EDT TYPE AND SCREEN STAT 11/23/2019 10:22 AM EDT APTT STAT 11/23/2019 10:21 AM EDT PROTHROMBIN TIME(PT) / INR STAT 11/23/2019 10:21 AM EDT EXTRA SPECIMEN Routine 11/23/2019 10:14 AM EDT URINE CULTURE STAT 11/23/2019 10:09 AM EDT URINALYSIS, MANUAL WITH SCOPE Routine 11/23/2019 10:08 AM EDT URINALYSIS WITH REFLEX MICROSCOPIC STAT 11/23/2019 10:08 AM EDT GLUCOSE POINT OF CARE DC Routine 11/23/2019 10:[address] CHEST WO IV CONTRAST Routine 11/23/19 8:[address] ABDOMEN PELVIS WO IV CONTRAST Routine 11/23/2019 8:48 AM EDT SARS COV-2/COVID-19 BY PCR Routine 11/23/2019 7:38 AM EDT LACTATE, VENOUS STAT 11/23/2019 7:38 AM EDT B-TYPE NATRIURETIC PEPTIDE STAT 11/23/2019 7:38 AM EDT BLOOD GAS PANEL, VENOUS Routine 11/23/19 7:38 AM EDT COMPREHENSIVE METABOLIC PANEL, PLASMA STAT 11/23/2019 7:38 AM EDT SARS COV-2/COVID-19 BY PCR STAT 11/23/2019 7:30 AM EDT WBC DIFFERENTIAL STAT 11/23/2019 7:30 AM EDT CBC W/O DIFFERENTIAL STAT 11/23/2019 7:30 AM EDT documented in this encounter Results * Glucose Point of Care. (12/27/2019 6:32 PM EDT) [facility] POCT Glucose 94 74 - 99 mg/dL SUNQUEST Comment: Accuracy of a glucose result obtained from a capillary whole blood specimen relies upon adequate, non-compromised capillary blood flow.If the capillary glucose result is not consistent with the patient's clinical signs and symptoms, glucose testing should be repeated with either an arterial or venous sample on the glucometer or sent to the main laboratory for testing. SPEC TYPE Capillary SUNQUEST 12/27/2019 6:32 PM EDT 12/27/2019 6:35 PM EDT Ana Jean-Baptiste MD LAB BLOOD ORDERABLE S Final Result Performing Organization Address [facility] de Phone Number SUNQUEST * Glucose Point of Care. (12/27/2019 4:40 PM EDT) Pathologist [facility] POCT Glucose 88 74 - 99 mg/dL SUNQUEST Comment: Accuracy of a glucose result obtained from a capillary whole blood specimen relies upon adequate, non-compromised capillary blood flow.If the capillary glucose result is not consistent with the patient's clinical signs and symptoms, glucose testing should be repeated with either an arterial or venous sample on the glucometer or sent to the main laboratory for testing. SPEC TYPE Capillary SUNQUEST 12/27/2019 4:40 PM EDT 12/27/2019 6:15 PM EDT Ana Jean-Baptiste MD LAB BLOOD ORDERABLE S Final Result Performing Organization Address [facility] de Phone Number SUNQUEST * (ABNORMAL) Basic Metabolic Panel, Plasma (12/27/2019 3:57 PM EDT) Pathologist [facility] Glucose, Plasma 108(H) 74 - 99 mg/dL SUNQUEST BUN, Plasma 7(L) 8 - 23 mg/dL SUNQUEST Creatinine, Plasma 0.77 0.60 - 1.10 mg/dL SUNQUEST BUN/Creatinine Ratio 9 8 - 20 SUNQUEST Sodium, Plasma 141 136 - 145 mmol/L SUNQUEST Potassium, Plasma 3.1(L) 3.7 - 4.8 mmol/L SUNQUEST Chloride, Plasma 97 97 - 107 mmol/L SUNQUEST CO2, Plasma 29 22 - 29 mmol/L SUNQUEST Anion Gap 15 6 - 16 mmol/L SUNQUEST Calcium, Plasma 8.8(L) 8.9 - 10.2 mg/dL SUNQUEST eGFR >60 SEE NOTE SUNQUEST eGFR, if AFR/AM >60 >60 SEE NOTE SUNQUEST Comment: (NOTE) eGFR = estimated GFR; eGFR units = mL/min/1.73 sq meters Chronic Kidney Disease is considered if eGFR <60 mL/min/1.73 sq meters Kidney failure is considered if eGFR is <15 mL/min/1.73 sq meters. eGFR assumes steady state plasma creatinine concentration; not applicable if renal function is rapidly changing or patient is on dialysis. 12/27/2019 3:57 PM EDT 12/27/2019 4:10 PM EDT Ana Jean-Baptiste MD LAB BLOOD ORDERABLE S Final Result Performing Organization Address City/[facility] Co de Phone Number SUNQUEST * Glucose Point of Care. (12/27/2019 11:49 AM EDT) POCT Glucose 81 74 - 99 mg/dL SUNQUEST Comment: Accuracy of a glucose result obtained from a capillary whole blood specimen relies upon adequate, non-compromised capillary blood flow.If the capillary glucose result is not consistent with the patient's clinical signs and symptoms, glucose testing should be repeated with either an arterial or venous sample on the glucometer or sent to the main laboratory for testing. SPEC TYPE Capillary SUNQUEST 12/27/2019 11:4 9 AM EDT 12/27/2019 6:15 PM EDT Ana Jean-Baptiste MD LAB BLOOD ORDERABLE S Final Result Performing Organization Address [facility] de Phone Number SUNQUEST * (ABNORMAL) Glucose Point of Care. (12/27/2019 8:27 AM EDT) Pathologist [facility] POCT Glucose 111(H) 74 - 99 mg/dL SUNQUEST Comment: Accuracy of a glucose result obtained from a capillary whole blood specimen relies upon adequate, non-compromised capillary blood flow.If the capillary glucose result is not consistent with the patient's clinical signs and symptoms, glucose testing should be repeated with either an arterial or venous sample on the glucometer or sent to the main laboratory for testing. SPEC TYPE Capillary SUNQUEST 12/27/2019 8:27 AM EDT 12/27/2019 8:30 AM EDT Ana Jean-Baptiste MD LAB BLOOD ORDERABLE S Final Result Performing Organization Address [facility] Co de Phone Number SUNQUEST * Glucose Point of Care. (12/26/2019 9:25 PM EDT) [facility] POCT Glucose 96 74 - 99 mg/dL SUNQUEST Comment: Accuracy of a glucose result obtained from a capillary whole blood specimen relies upon adequate, non-compromised capillary blood flow.If the capillary glucose result is not consistent with the patient's clinical signs and symptoms, glucose testing should be repeated with either an arterial or venous sample on the glucometer or sent to the main laboratory for testing. SPEC TYPE Capillary SUNQUEST 12/26/2019 9:25 PM EDT 12/26/2019 9:30 PM EDT Ana Jean-Baptiste MD LAB BLOOD ORDERABLE S Final Result Performing Organization Address [facility] Phone Number SUNQUEST * Glucose Point of Care. (12/26/2019 5:31 PM EDT) [facility] POCT Glucose 99 74 - 99 mg/dL SUNQUEST Comment: Accuracy of a glucose result obtained from a capillary whole blood specimen relies upon adequate, non-compromised capillary blood flow.If the capillary glucose result is not consistent with the patient's clinical signs and symptoms, glucose testing should be repeated with either an arterial or venous sample on the glucometer or sent to the main laboratory for testing. SPEC TYPE Capillary SUNQUEST 12/26/2019 5:31 PM EDT 12/26/2019 5:40 PM EDT Ana Jean-Baptiste MD LAB BLOOD ORDERABLE S Final Result Performing Organization Address [facility] Co de Phone Number SUNQUEST * (ABNORMAL) Glucose Point of Care. (12/26/2019 10:57 AM EDT) [facility] POCT Glucose 132(H) 74 - 99 mg/dL SUNQUEST Comment: Accuracy of a glucose result obtained from a capillary whole blood specimen relies upon adequate, non-compromised capillary blood flow.If the capillary glucose result is not consistent with the patient's clinical signs and symptoms, glucose testing should be repeated with either an arterial or venous sample on the glucometer or sent to the main laboratory for testing. SPEC TYPE Capillary SUNQUEST 12/26/2019 10:5 7 AM EDT 12/26/2019 11:10 AM EDT Ana Jean-Baptiste MD LAB BLOOD ORDERABLE S Final Result Performing Organization Address [facility]/ZIP Co de Phone Number SUNQUEST * (ABNORMAL) Glucose Point of Care. (12/26/2019 8:18 AM EDT) POCT Glucose 112(H) 74 - 99 mg/dL SUNQUEST Comment: Accuracy of a glucose result obtained from a capillary whole blood specimen relies upon adequate, non-compromised capillary blood flow.If the capillary glucose result is not consistent with the patient's clinical signs and symptoms, glucose testing should be repeated with either an arterial or venous sample on the glucometer or sent to the main laboratory for testing. SPEC TYPE Capillary SUNQUEST 12/26/2019 8:18 AM EDT 12/26/2019 11:10 AM EDT Result [facility] Ana Jean-Baptiste MD LAB BLOOD ORDERABLE S Final Result Performing Organization Address [facility]/ZIP Co de Phone Number SUNQUEST * (ABNORMAL) Magnesium, Plasma (12/26/2019 3:05 AM EDT) Magnesium, Plasma 1.3(L) 1.9 - 2.4 mg/dL SUNQUEST 12/26/2019 3:05 AM EDT 12/26/2019 3:13 AM EDT Silvestre Thomas MD LAB BLOOD ORDERABLES F inal Result SUNQUEST * (ABNORMAL) Basic Metabolic Panel, Plasma (12/26/2019 3:05 AM EDT) Glucose, Plasma 111(H) 74 - 99 mg/dL SUNQUEST BUN, Plasma 8 8 - 23 mg/dL SUNQUEST Creatinine, Plasma 0.80 0.60 - 1.10 mg/dL SUNQUEST BUN/Creatinine Ratio 10 8 - 20 SUNQUEST Sodium, Plasma 143 136 - 145 mmol/L SUNQUEST Potassium, Plasma 2.9(L) 3.7 - 4.8 mmol/L SUNQUEST Chloride, Plasma 99 97 - 107 mmol/L SUNQUEST CO2, Plasma 29 22 - 29 mmol/L SUNQUEST Anion Gap 15 6 - 16 mmol/L SUNQUEST Calcium, Plasma 8.4(L) 8.9 - 10.2 mg/dL SUNQUEST eGFR >60 SEE NOTE SUNQUEST eGFR, if AFR/AM >60 >60 SEE NOTE SUNQUEST Comment: (NOTE) eGFR = estimated GFR; eGFR units = mL/min/1.73 sq meters Chronic Kidney Disease is considered if eGFR <60 mL/min/1.73 sq meters Kidney failure is considered if eGFR is <15 mL/min/1.73 sq meters. eGFR assumes steady state plasma creatinine concentration; not applicable if renal function is rapidly changing or patient is on dialysis. 12/26/2019 3:05 AM EDT 12/26/2019 3:13 AM EDT Silvestre Thomas MD LAB BLOOD ORDERABLES F inal Result SUNQUEST * (ABNORMAL) CBC W/O Differential (12/26/2019 3:05 AM EDT) WBC Count 8.22 3.7 - 10.3 k/uL SUNQUEST RBC Count 4.37 3.9 - 5.2 M/uL SUNQUEST HGB 12.2 11.2 - 15.7 g/dL SUNQUEST HCT 39.9 34 - 45 % SUNQUEST Platelet Count 191 155 - 369 k/uL SUNQUEST MCV 91 79 - 98 fL SUNQUEST MCH 27.9 26 - 32 pg SUNQUEST MCHC 30.6(L) 30.7 - 35.5 g/dL SUNQUEST RDW 17.1(H) 12.4 - 14.9 % SUNQUEST MPV 9.5 8.8 - 12.5 fL SUNQUEST NRBC COUNT 0.0 0 % SUNQUEST 12/26/2019 3:05 AM EDT 12/26/2019 3:24 AM EDT Silvestre Thomas MD LAB BLOOD ORDERABLES F inal Result Performing Organization Address [facility]/ZIP Co de Phone Number SUNQUEST * Glucose Point of Care. (12/25/2019 9:38 PM EDT) [facility] POCT Glucose 98 74 - 99 mg/dL SUNQUEST Comment: Accuracy of a glucose result obtained from a capillary whole blood specimen relies upon adequate, non-compromised capillary blood flow.If the capillary glucose result is not consistent with the patient's clinical signs and symptoms, glucose testing should be repeated with either an arterial or venous sample on the glucometer or sent to the main laboratory for testing. SPEC TYPE Capillary SUNQUEST 12/25/2019 9:38 PM EDT 12/25/2019 9:40 PM EDT Ana Jean-Baptiste MD LAB BLOOD ORDERABLE S Final Result Performing Organization Address [facility] Co de Phone Number SUNQUEST * (ABNORMAL) Glucose Point of Care. (12/25/2019 5:33 PM EDT) [facility] POCT Glucose 105(H) 74 - 99 mg/dL SUNQUEST Comment: Accuracy of a glucose result obtained from a capillary whole blood specimen relies upon adequate, non-compromised capillary blood flow.If the capillary glucose result is not consistent with the patient's clinical signs and symptoms, glucose testing should be repeated with either an arterial or venous sample on the glucometer or sent to the main laboratory for testing. SPEC TYPE Capillary SUNQUEST 12/25/2019 5:33 PM EDT 12/25/2019 6:21 PM EDT Ana Jean-Baptiste MD LAB BLOOD ORDERABLE S Final Result Performing Organization Address [facility] Co de Phone Number SUNQUEST * (ABNORMAL) Glucose Point of Care. (12/25/2019 11:28 AM EDT) [facility] POCT Glucose 102(H) 74 - 99 mg/dL SUNQUEST Comment: Accuracy of a glucose result obtained from a capillary whole blood specimen relies upon adequate, non-compromised capillary blood flow.If the capillary glucose result is not consistent with the patient's clinical signs and symptoms, glucose testing should be repeated with either an arterial or venous sample on the glucometer or sent to the main laboratory for testing. SPEC TYPE Capillary SUNQUEST 12/25/2019 11:2 8 AM EDT 12/25/2019 11:55 AM EDT Ana Jean-Baptiste MD LAB BLOOD ORDERABLE S Final Result Performing Organization Address [facility] Phone Number SUNQUEST * (ABNORMAL) Glucose Point of Care. (12/25/2019 8:26 AM EDT) [facility] POCT Glucose 115(H) 74 - 99 mg/dL SUNQUEST Comment: Accuracy of a glucose result obtained from a capillary whole blood specimen relies upon adequate, non-compromised capillary blood flow.If the capillary glucose result is not consistent with the patient's clinical signs and symptoms, glucose testing should be repeated with either an arterial or venous sample on the glucometer or sent to the main laboratory for testing. SPEC TYPE Capillary SUNQUEST 12/25/2019 8:26 AM EDT 12/25/2019 8:30 AM EDT Ana Jean-Bapitste MD LAB BLOOD ORDERABLE S Final Result Performing Organization Address [facility] Phone Number SUNQUEST * Glucose Point of Care. (12/24/2019 7:44 PM EDT) [facility] POCT Glucose 91 74 - 99 mg/dL SUNQUEST Comment: Accuracy of a glucose result obtained from a capillary whole blood specimen relies upon adequate, non-compromised capillary blood flow.If the capillary glucose result is not consistent with the patient's clinical signs and symptoms, glucose testing should be repeated with either an arterial or venous sample on the glucometer or sent to the main laboratory for testing. SPEC TYPE Capillary SUNQUEST 12/24/2019 7:44 PM EDT 12/24/2019 7:50 PM EDT Ana Jean-Baptiste MD LAB BLOOD ORDERABLE S Final Result Performing Organization Address [facility] de Phone Number SUNQUEST * (ABNORMAL) Glucose Point of Care. (12/24/2019 4:52 PM EDT) [facility] POCT Glucose 113(H) 74 - 99 mg/dL SUNQUEST Comment: Accuracy of a glucose result obtained from a capillary whole blood specimen relies upon adequate, non-compromised capillary blood flow.If the capillary glucose result is not consistent with the patient's clinical signs and symptoms, glucose testing should be repeated with either an arterial or venous sample on the glucometer or sent to the main laboratory for testing. SPEC TYPE Capillary SUNQUEST 12/24/2019 4:52 PM EDT 12/24/2019 4:55 PM EDT Result [facility] LAB BLOOD ORDERABLE S Final Result Performing Organization Address [facility] Phone Number SUNQUEST * (ABNORMAL) Glucose Point of Care. (12/24/2019 11:29 AM EDT) [facility] POCT Glucose 106(H) 74 - 99 mg/dL SUNQUEST Comment: Accuracy of a glucose result obtained from a capillary whole blood specimen relies upon adequate, non-compromised capillary blood flow.If the capillary glucose result is not consistent with the patient's clinical signs and symptoms, glucose testing should be repeated with either an arterial or venous sample on the glucometer or sent to the main laboratory for testing. SPEC TYPE Capillary SUNQUEST 12/24/2019 11:2 9 AM EDT 12/24/2019 11:40 AM EDT Ana Jean-Baptiste MD LAB BLOOD ORDERABLE S Final Result Performing Organization Address [facility] de Phone Number SUNQUEST * (ABNORMAL) Glucose Point of Care. (12/24/2019 8:10 AM EDT) [facility] POCT Glucose 144(H) 74 - 99 mg/dL SUNQUEST Comment: Accuracy of a glucose result obtained from a capillary whole blood specimen relies upon adequate, non-compromised capillary blood flow.If the capillary glucose result is not consistent with the patient's clinical signs and symptoms, glucose testing should be repeated with either an arterial or venous sample on the glucometer or sent to the main laboratory for testing. SPEC TYPE Capillary SUNQUEST 12/24/2019 8:10 AM EDT 12/24/2019 8:15 AM EDT Ana Jean-Baptiste MD LAB BLOOD ORDERABLE S Final Result Performing Organization Address [facility] de Phone Number SUNQUEST * Glucose Point of Care. (12/23/2019 9:44 PM EDT) POCT Glucose 90 74 - 99 mg/dL SUNQUEST Comment: Accuracy of a glucose result obtained from a capillary whole blood specimen relies upon adequate, non-compromised capillary blood flow.If the capillary glucose result is not consistent with the patient's clinical signs and symptoms, glucose testing should be repeated with either an arterial or venous sample on the glucometer or sent to the main laboratory for testing. SPEC TYPE Capillary SUNQUEST 12/23/2019 9:44 PM EDT 12/23/2019 9:55 PM EDT Ana Jean-Baptiste MD LAB BLOOD ORDERABLE S Final Result Performing Organization Address [facility] de Phone Number SUNQUEST * (ABNORMAL) Glucose Point of Care. (12/23/2019 3:53 PM EDT) POCT Glucose 112(H) 74 - 99 mg/dL SUNQUEST Comment: Accuracy of a glucose result obtained from a capillary whole blood specimen relies upon adequate, non-compromised capillary blood flow.If the capillary glucose result is not consistent with the patient's clinical signs and symptoms, glucose testing should be repeated with either an arterial or venous sample on the glucometer or sent to the main laboratory for testing. SPEC TYPE Capillary SUNQUEST 12/23/2019 3:53 PM EDT 12/23/2019 4:00 PM EDT Ana Jean-Baptiste MD LAB BLOOD ORDERABLE S Final Result Performing Organization Address [facility] de Phone Number SUNQUEST * (ABNORMAL) Glucose Point of Care. (12/23/2019 11:06 AM EDT) [facility] POCT Glucose 173(H) 74 - 99 mg/dL SUNQUEST Comment: Accuracy of a glucose result obtained from a capillary whole blood specimen relies upon adequate, non-compromised capillary blood flow.If the capillary glucose result is not consistent with the patient's clinical signs and symptoms, glucose testing should be repeated with either an arterial or venous sample on the glucometer or sent to the main laboratory for testing. SPEC TYPE Capillary SUNQUEST 12/23/2019 11:0 6 AM EDT 12/23/2019 11:10 AM EDT Ana Jean-Baptiste MD LAB BLOOD ORDERABLE S Final Result Performing Organization Address [facility] Phone Number SUNQUEST * (ABNORMAL) Glucose Point of Care. (12/23/2019 8:09 AM EDT) [facility] POCT Glucose 128(H) 74 - 99 mg/dL SUNQUEST Comment: Accuracy of a glucose result obtained from a capillary whole blood specimen relies upon adequate, non-compromised capillary blood flow.If the capillary glucose result is not consistent with the patient's clinical signs and symptoms, glucose testing should be repeated with either an arterial or venous sample on the glucometer or sent to the main laboratory for testing. SPEC TYPE Capillary SUNQUEST 12/23/2019 8:09 AM EDT 12/23/2019 10:15 AM EDT Ana Jean-Baptiste MD LAB BLOOD ORDERABLE S Final Result Performing Organization Address [facility] Co de Phone Number SUNQUEST * (ABNORMAL) Glucose Point of Care. (12/22/2019 9:26 PM EDT) [facility] POCT Glucose 106(H) 74 - 99 mg/dL SUNQUEST Comment: Accuracy of a glucose result obtained from a capillary whole blood specimen relies upon adequate, non-compromised capillary blood flow.If the capillary glucose result is not consistent with the patient's clinical signs and symptoms, glucose testing should be repeated with either an arterial or venous sample on the glucometer or sent to the main laboratory for testing. SPEC TYPE Capillary SUNQUEST 12/22/2019 9:26 PM EDT 12/22/2019 9:35 PM EDT Ana Jean-Baptiste MD LAB BLOOD ORDERABLE S Final Result Performing Organization Address [facility] de Phone Number SUNQUEST * (ABNORMAL) Glucose Point of Care. (12/22/2019 4:22 PM EDT) POCT Glucose 106(H) 74 - 99 mg/dL SUNQUEST Comment: Accuracy of a glucose result obtained from a capillary whole blood specimen relies upon adequate, non-compromised capillary blood flow.If the capillary glucose result is not consistent with the patient's clinical signs and symptoms, glucose testing should be repeated with either an arterial or venous sample on the glucometer or sent to the main laboratory for testing. SPEC TYPE Capillary SUNQUEST 12/22/2019 4:22 PM EDT 12/22/2019 4:30 PM EDT Ana Jean-Baptiste MD LAB BLOOD ORDERABLE S Final Result Performing Organization Address [facility] Phone Number SUNQUEST * (ABNORMAL) Glucose Point of Care. (12/22/2019 11:26 AM EDT) POCT Glucose 164(H) 74 - 99 mg/dL SUNQUEST Comment: Accuracy of a glucose result obtained from a capillary whole blood specimen relies upon adequate, non-compromised capillary blood flow.If the capillary glucose result is not consistent with the patient's clinical signs and symptoms, glucose testing should be repeated with either an arterial or venous sample on the glucometer or sent to the main laboratory for testing. SPEC TYPE Capillary SUNQUEST 12/22/2019 11:2 6 AM EDT 12/22/2019 11:50 AM EDT Ana Jean-Baptiste MD LAB BLOOD ORDERABLE S Final Result Performing Organization Address [facility] de Phone Number SUNQUEST * (ABNORMAL) Glucose Point of Care. (12/22/2019 7:34 AM EDT) [facility] POCT Glucose 113(H) 74 - 99 mg/dL SUNQUEST Comment: Accuracy of a glucose result obtained from a capillary whole blood specimen relies upon adequate, non-compromised capillary blood flow.If the capillary glucose result is not consistent with the patient's clinical signs and symptoms, glucose testing should be repeated with either an arterial or venous sample on the glucometer or sent to the main laboratory for testing. SPEC TYPE Capillary SUNQUEST 12/22/2019 7:34 AM EDT 12/22/2019 7:40 AM EDT Ana Jean-Baptiste MD LAB BLOOD ORDERABLE S Final Result Performing Organization Address [facility] de Phone Number SUNQUEST * (ABNORMAL) Glucose Point of Care. (12/21/2019 8:58 PM EDT) [facility] POCT Glucose 163(H) 74 - 99 mg/dL SUNQUEST Comment: Accuracy of a glucose result obtained from a capillary whole blood specimen relies upon adequate, non-compromised capillary blood flow.If the capillary glucose result is not consistent with the patient's clinical signs and symptoms, glucose testing should be repeated with either an arterial or venous sample on the glucometer or sent to the main laboratory for testing. SPEC TYPE Capillary SUNQUEST 12/21/2019 8:58 PM EDT 12/21/2019 9:05 PM EDT Ana Jean-Baptiste MD LAB BLOOD ORDERABLE S Final Result Performing Organization Address [facility] de Phone Number SUNQUEST * (ABNORMAL) Glucose Point of Care. (12/21/2019 4:59 PM EDT) [facility] POCT Glucose 111(H) 74 - 99 mg/dL SUNQUEST Comment: Accuracy of a glucose result obtained from a capillary whole blood specimen relies upon adequate, non-compromised capillary blood flow.If the capillary glucose result is not consistent with the patient's clinical signs and symptoms, glucose testing should be repeated with either an arterial or venous sample on the glucometer or sent to the main laboratory for testing. SPEC TYPE Capillary SUNQUEST 12/21/2019 4:59 PM EDT 12/21/2019 5:05 PM EDT Ana Jean-Baptiste MD LAB BLOOD ORDERABLE S Final Result Performing Organization Address [facility] de Phone Number SUNQUEST * (ABNORMAL) Glucose Point of Care. (12/21/2019 11:53 AM EDT) POCT Glucose 125(H) 74 - 99 mg/dL SUNQUEST Comment: Accuracy of a glucose result obtained from a capillary whole blood specimen relies upon adequate, non-compromised capillary blood flow.If the capillary glucose result is not consistent with the patient's clinical signs and symptoms, glucose testing should be repeated with either an arterial or venous sample on the glucometer or sent to the main laboratory for testing. SPEC TYPE Capillary SUNQUEST 12/21/2019 11:5 3 AM EDT 12/21/2019 12:00 PM EDT Ana Jean-Baptiste MD LAB BLOOD ORDERABLE S Final Result Performing Organization Address [facility] de Phone Number SUNQUEST * (ABNORMAL) Glucose Point of Care. (12/21/2019 8:02 AM EDT) POCT Glucose 126(H) 74 - 99 mg/dL SUNQUEST Comment: Accuracy of a glucose result obtained from a capillary whole blood specimen relies upon adequate, non-compromised capillary blood flow.If the capillary glucose result is not consistent with the patient's clinical signs and symptoms, glucose testing should be repeated with either an arterial or venous sample on the glucometer or sent to the main laboratory for testing. SPEC TYPE Capillary SUNQUEST 12/21/2019 8:02 AM EDT 12/21/2019 8:10 AM EDT Ana Jean-Baptiste MD LAB BLOOD ORDERABLE S Final Result Performing Organization Address [facility]/ZIP Co de Phone Number SUNQUEST * (ABNORMAL) Glucose Point of Care. (12/20/2019 8:14 PM EDT) POCT Glucose 118(H) 74 - 99 mg/dL SUNQUEST Comment: Accuracy of a glucose result obtained from a capillary whole blood specimen relies upon adequate, non-compromised capillary blood flow.If the capillary glucose result is not consistent with the patient's clinical signs and symptoms, glucose testing should be repeated with either an arterial or venous sample on the glucometer or sent to the main laboratory for testing. SPEC TYPE Capillary SUNQUEST 12/20/2019 8:14 PM EDT 12/20/2019 8:20 PM EDT Ana Jean-Baptiste MD LAB BLOOD ORDERABLE S Final Result Performing Organization Address [facility] Phone Number SUNQUEST * (ABNORMAL) Glucose Point of Care. (12/20/2019 5:08 PM EDT) [facility] POCT Glucose 112(H) 74 - 99 mg/dL SUNQUEST Comment: Accuracy of a glucose result obtained from a capillary whole blood specimen relies upon adequate, non-compromised capillary blood flow.If the capillary glucose result is not consistent with the patient's clinical signs and symptoms, glucose testing should be repeated with either an arterial or venous sample on the glucometer or sent to the main laboratory for testing. SPEC TYPE Capillary SUNQUEST 12/20/2019 5:08 PM EDT 12/20/2019 5:20 PM EDT Ana Jean-Baptiste MD LAB BLOOD ORDERABLE S Final Result Performing Organization Address [facility] de Phone Number SUNQUEST * CT Abdomen wo IV Contrast (12/20/2019 2:14 PM EDT) Anatomical Region Laterality Modality Abdomen Computed Tomogra phy Narrative 12/20/2019 2:48 PM EDT REQUESTING PHYSICIAN: BEN KLEIN REASON FOR EXAMINATION/PROCEDURE: RAD PDP:Y ??* ??retroperitneaal hematoma EXAMINATION / PROCEDURE: CT Abdomen WO IVCON Dec 20 2019 - 14:14; ? CLINICAL INDICATION: Retroperitoneal hematoma TECHNIQUE: Multiple axial CT images were obtained from lung bases through upper pelvis without the administration of IV contrast. Reformatted images in the coronal and sagittal planes were generated from the axial data set to facilitate diagnostic accura cy. Total DLP (Dose-Length Product): 630.60 mGy.cm. Please note: The reported value represents the total of one or more individual components during the CT acquisition on this date and at this time, and as such, the same value may appear in m ore than one CT report depending on the interpreting/reporting physicians. COMPARISON: 12/13/2019 FINDINGS: Lower Chest: Bibasilar atelectasis and small left pleural effusion. Analysis of the abdominopelvic viscera is limited by the abse nce of intravenous contrast material. Solid Abdominal Organs: Normal liver, no focal lesions. Status post cholecystectomy. No biliary obstruction. Normal pancreas, spleen and adrenal glands. Stable low-attenuation lesion in the right kidney. Redemonstration of a percutaneous pigtail drain into the previously demonstrated left perinephric collection which is slightly decreased in size compared to the prior study. Tiny foci of gas are once again identified. The left perinephric/retr operitoneal hematoma has also decreased in size measuring approximately 11 x 4 x 6 cm, previously 11 x 9 x 6 cm. GI Tract/Mesentery/Peritoneum: The large and small bowel appear normal in caliber. No evidence of inflammatory change. No suspici ous peritoneal/mesenteric findings.. Lymph Nodes/Vasculature: No lymphadenopathy by CT size criteria. The aortoiliac vasculature is normal in caliber. Free Fluid: Absent Musculoskeletal and Body Wall:No aggressive or suspicious findings. ?? IMPRESSION: 1. Small interval decrease in size the previously demonstrated left perinephric fluid collection/hematoma compared to the prior study. CRITICAL RESULT: ?? No. COMMUNICATION: Per this written report. ?? Verified by: ADITI STEVENS M.D. on Dec 20 2019 ??2:47P Transcribed by: [facility] on Dec 20 2019 ??2:47P Dictated by: ADITI STEVENS M.D. on Dec 20 2019 ??2:44P Procedure Note Aditi Stevens - 04/26/2021 REQUESTING PHYSICIAN: BEN KLEIN REASON FOR EXAMINATION/PROCEDURE: RAD PDP:Y * retroperitneaal hematoma EXAMINATION / PROCEDURE: CT Abdomen WO IVCON Dec 20 2019 - 14:14; CLINICAL INDICATION: Retroperitoneal hematoma TECHNIQUE: Multiple axial CT images were obtained from lung bases through upper pelvis without the administration of IV contrast. Reformatted images in the coronal and sagittal planes were generated from the axial data set to facilitate diagnostic accura cy. Total DLP (Dose-Length Product): 630.60 mGy.cm. Please note: The reported value represents the total of one or more individual components during the CT acquisition on this date and at this time, and as such, the same value may appear in m ore than one CT report depending on the interpreting/reporting physicians. COMPARISON: 12/13/2019 FINDINGS: Lower Chest: Bibasilar atelectasis and small left pleural effusion. Analysis of the abdominopelvic viscera is limited by the abse nce of intravenous contrast material. Solid Abdominal Organs: Normal liver, no focal lesions. Status post cholecystectomy. No biliary obstruction. Normal pancreas, spleen and adrenal glands. Stable low-attenuation lesion in the right kidney. Redemonstration of a percutaneous pigtail drain into the previously demonstrated left perinephric collection which is slightly decreased in size compared to the prior study. Tiny foci of gas are once again identified. The left perinephric/retr operitoneal hematoma has also decreased in size measuring approximately 11 x 4 x 6 cm, previously 11 x 9 x 6 cm. GI Tract/Mesentery/Peritoneum: The large and small bowel appear normal in caliber. No evidence of inflammatory change. No suspici ous peritoneal/mesenteric findings.. Lymph Nodes/Vasculature: No lymphadenopathy by CT size criteria. The aortoiliac vasculature is normal in caliber. Free Fluid: Absent Musculoskeletal and Body Wall:No aggressive or suspicious findings. IMPRESSION: 1. Small interval decrease in size the previously demonstrated left perinephric fluid collection/hematoma compared to the prior study. CRITICAL RESULT: No. COMMUNICATION: Per this written report. Verified by: ADITI STEVENS M.D. on Dec 20 2019 2:47P Transcribed by: [facility] on Dec 20 2019 2:47P Dictated by: ADITI STEVENS M.D. on Dec 20 2019 2:44P Ben Klein MD IMG CT PROCEDURES Final Result * (ABNORMAL) Glucose Point of Care. (12/20/2019 11:55 AM EDT) [facility] POCT Glucose 144(H) 74 - 99 mg/dL SUNQUEST Comment: Accuracy of a glucose result obtained from a capillary whole blood specimen relies upon adequate, non-compromised capillary blood flow.If the capillary glucose result is not consistent with the patient's clinical signs and symptoms, glucose testing should be repeated with either an arterial or venous sample on the glucometer or sent to the main laboratory for testing. SPEC TYPE Capillary SUNQUEST 12/20/2019 11:5 5 AM EDT 12/20/2019 12:10 PM EDT Ana Jean-Baptiste MD LAB BLOOD ORDERABLE S Final Result Performing Organization Address [facility] de Phone Number SUNQUEST * (ABNORMAL) Glucose Point of Care. (12/20/2019 8:04 AM EDT) [facility] POCT Glucose 125(H) 74 - 99 mg/dL SUNQUEST Comment: Accuracy of a glucose result obtained from a capillary whole blood specimen relies upon adequate, non-compromised capillary blood flow.If the capillary glucose result is not consistent with the patient's clinical signs and symptoms, glucose testing should be repeated with either an arterial or venous sample on the glucometer or sent to the main laboratory for testing. SPEC TYPE Capillary SUNQUEST 12/20/2019 8:04 AM EDT 12/20/2019 8:15 AM EDT Ana Jean-Baptiste MD LAB BLOOD ORDERABLE S Final Result Performing Organization Address [facility] Co de Phone Number SUNQUEST * (ABNORMAL) Basic Metabolic Panel, Plasma (12/20/2019 4:30 AM EDT) [facility] Glucose, Plasma 150(H) 74 - 99 mg/dL SUNQUEST BUN, Plasma 10 8 - 23 mg/dL SUNQUEST Creatinine, Plasma 1.01 0.60 - 1.10 mg/dL SUNQUEST BUN/Creatinine Ratio 10 8 - 20 SUNQUEST Sodium, Plasma 142 136 - 145 mmol/L SUNQUEST Potassium, Plasma 3.3(L) 3.7 - 4.8 mmol/L SUNQUEST Chloride, Plasma 96(L) 97 - 107 mmol/L SUNQUEST CO2, Plasma 32(H) 22 - 29 mmol/L SUNQUEST Anion Gap 14 6 - 16 mmol/L SUNQUEST Calcium, Plasma 9.3 8.9 - 10.2 mg/dL SUNQUEST eGFR 54 SEE NOTE SUNQUEST eGFR, if AFR/AM >60 >60 SEE NOTE SUNQUEST Comment: (NOTE) eGFR = estimated GFR; eGFR units = mL/min/1.73 sq meters Chronic Kidney Disease is considered if eGFR <60 mL/min/1.73 sq meters Kidney failure is considered if eGFR is <15 mL/min/1.73 sq meters. eGFR assumes steady state plasma creatinine concentration; not applicable if renal function is rapidly changing or patient is on dialysis. 12/20/2019 4:30 AM EDT 12/20/2019 4:37 AM EDT us Rupesh Sierra MD LAB BLOOD ORDERABLES Final Resu lt SUNKAREN * (ABNORMAL) CBC W/O Differential (12/20/2019 4:30 AM EDT) WBC Count 6.03 3.7 - 10.3 k/uL SUNQUEST RBC Count 4.31 3.9 - 5.2 M/uL SUNQUEST HGB 11.8 11.2 - 15.7 g/dL SUNQUEST HCT 39.7 34 - 45 % SUNQUEST Platelet Count 220 155 - 369 k/uL SUNQUEST MCV 92 79 - 98 fL SUNQUEST MCH 27.4 26 - 32 pg SUNQUEST MCHC 29.7(L) 30.7 - 35.5 g/dL SUNQUEST RDW 18.2(H) 12.4 - 14.9 % SUNQUEST MPV 9.0 8.8 - 12.5 fL SUNQUEST NRBC COUNT 0.0 0 % SUNQUEST 12/20/2019 4:30 AM EDT 12/20/2019 4:37 AM EDT Rupesh Sierra MD LAB BLOOD ORDERABLES Final Resu lt Performing Organization Address [facility] de Phone Number SUNQUEST * (ABNORMAL) WBC Differential (12/20/2019 4:30 AM EDT) Differential Type AUTOMATED SUNQUEST Neutrophils % 62 % SUNQUEST Lymphocytes 21 % SUNQUEST Monocytes 11 % SUNQUEST Eosinophils 3 % SUNQUEST Basophils 1 % SUNQUEST Immature Granulocytes % 2 % SUNQUEST ABS Neutrophil 3.75 1.6 - 6.1 k/uL SUNQUEST ABS Lymphocyte 1.27 1.2 - 3.9 k/uL SUNQUEST ABS Monocyte 0.69 0.3 - 0.9 k/uL SUNQUEST ABS Eosinophil 0.20 0.0 - 0.5 k/uL SUNQUEST ABS Basophil 0.03 0.0 - 0.1 k/uL SUNQUEST Immature Granulocyte Absolute 0.09(H) 0 - 0.06 k/uL SUNQUEST 12/20/2019 4:30 AM EDT 12/20/2019 4:37 AM EDT Narrative SUNQUEST - 12/20/2019 4:51 AM EDT Therapeutic decision making should be based on absolute values, rather than percentages. Therapeutic decision making should be based on absolute values, rather than percentages. Therapeutic decision making should be based on absolute values, rather than percentages. Therapeutic decision making should be based on absolute values, rather than percentages. Rupesh Sierra MD LAB BLOOD ORDERABLES Final Resu lt Performing Organization Address [facility] de Phone Number SUNQUEST * (ABNORMAL) Glucose Point of Care. (12/19/2019 8:59 PM EDT) POCT Glucose 103(H) 74 - 99 mg/dL SUNQUEST Comment: Accuracy of a glucose result obtained from a capillary whole blood specimen relies upon adequate, non-compromised capillary blood flow.If the capillary glucose result is not consistent with the patient's clinical signs and symptoms, glucose testing should be repeated with either an arterial or venous sample on the glucometer or sent to the main laboratory for testing. SPEC TYPE Capillary SUNQUEST 12/19/2019 8:59 PM EDT 12/19/2019 9:05 PM EDT Ana Jean-Baptiste MD LAB BLOOD ORDERABLE S Final Result Performing Organization Address [facility] de Phone Number SUNQUEST * (ABNORMAL) Glucose Point of Care. (12/19/2019 3:38 PM EDT) [facility] POCT Glucose 183(H) 74 - 99 mg/dL SUNQUEST Comment: Accuracy of a glucose result obtained from a capillary whole blood specimen relies upon adequate, non-compromised capillary blood flow.If the capillary glucose result is not consistent with the patient's clinical signs and symptoms, glucose testing should be repeated with either an arterial or venous sample on the glucometer or sent to the main laboratory for testing. SPEC TYPE Capillary SUNQUEST 12/19/2019 3:38 PM EDT 12/19/2019 3:40 PM EDT Result [facility] Ana Jean-Baptiste MD LAB BLOOD ORDERABLE S Final Result Performing Organization Address [facility] Phone Number SUNQUEST * (ABNORMAL) Glucose Point of Care. (12/19/2019 11:45 AM EDT) [facility] POCT Glucose 115(H) 74 - 99 mg/dL SUNQUEST Comment: Accuracy of a glucose result obtained from a capillary whole blood specimen relies upon adequate, non-compromised capillary blood flow.If the capillary glucose result is not consistent with the patient's clinical signs and symptoms, glucose testing should be repeated with either an arterial or venous sample on the glucometer or sent to the main laboratory for testing. SPEC TYPE Capillary SUNQUEST 12/19/2019 11:4 5 AM EDT 12/19/2019 11:50 AM EDT Result [facility] Ana Jean-Baptiste MD LAB BLOOD ORDERABLE S Final Result Performing Organization Address City/[facility] de Phone Number SUNQUEST * (ABNORMAL) Glucose Point of Care. (12/19/2019 8:18 AM EDT) [facility] POCT Glucose 139(H) 74 - 99 mg/dL SUNQUEST Comment: Accuracy of a glucose result obtained from a capillary whole blood specimen relies upon adequate, non-compromised capillary blood flow.If the capillary glucose result is not consistent with the patient's clinical signs and symptoms, glucose testing should be repeated with either an arterial or venous sample on the glucometer or sent to the main laboratory for testing. SPEC TYPE Capillary SUNQUEST 12/19/2019 8:18 AM EDT 12/19/2019 8:25 AM EDT Ana Jean-Baptiste MD LAB BLOOD ORDERABLE S Final Result SUNQUEST * ECG ADULT (12/19/2019) Narrative 12/19/2019 Ordered by an unspecified provider. [facility] Provider ECG ORDERABLES Final Res ult * (ABNORMAL) Glucose Point of Care. (12/18/2019 4:42 PM EDT) [facility] POCT Glucose 107(H) 74 - 99 mg/dL SUNQUEST Comment: Accuracy of a glucose result obtained from a capillary whole blood specimen relies upon adequate, non-compromised capillary blood flow.If the capillary glucose result is not consistent with the patient's clinical signs and symptoms, glucose testing should be repeated with either an arterial or venous sample on the glucometer or sent to the main laboratory for testing. SPEC TYPE Capillary SUNQUEST 12/18/2019 4:42 PM EDT 12/18/2019 4:50 PM EDT Ana Jean-Baptiste MD LAB BLOOD ORDERABLE S Final Result SUNQUEST * (ABNORMAL) Glucose Point of Care. (12/18/2019 11:28 AM EDT) [facility] POCT Glucose 183(H) 74 - 99 mg/dL SUNQUEST Comment: Accuracy of a glucose result obtained from a capillary whole blood specimen relies upon adequate, non-compromised capillary blood flow.If the capillary glucose result is not consistent with the patient's clinical signs and symptoms, glucose testing should be repeated with either an arterial or venous sample on the glucometer or sent to the main laboratory for testing. SPEC TYPE Capillary SUNQUEST 12/18/2019 11:2 8 AM EDT 12/18/2019 11:30 AM EDT Ana Jean-Baptiste MD LAB BLOOD ORDERABLE S Final Result Performing Organization Address [facility] de Phone Number SUNQUEST * (ABNORMAL) Glucose Point of Care. (12/18/2019 7:44 AM EDT) POCT Glucose 125(H) 74 - 99 mg/dL SUNQUEST Comment: Accuracy of a glucose result obtained from a capillary whole blood specimen relies upon adequate, non-compromised capillary blood flow.If the capillary glucose result is not consistent with the patient's clinical signs and symptoms, glucose testing should be repeated with either an arterial or venous sample on the glucometer or sent to the main laboratory for testing. SPEC TYPE Capillary SUNQUEST 12/18/2019 7:44 AM EDT 12/18/2019 7:50 AM EDT Ana Jean-Baptiste MD LAB BLOOD ORDERABLE S Final Result Performing Organization Address [facility] Phone Number SUNQUEST * (ABNORMAL) Glucose Point of Care. (12/17/2019 8:55 PM EDT) POCT Glucose 123(H) 74 - 99 mg/dL SUNQUEST Comment: Accuracy of a glucose result obtained from a capillary whole blood specimen relies upon adequate, non-compromised capillary blood flow.If the capillary glucose result is not consistent with the patient's clinical signs and symptoms, glucose testing should be repeated with either an arterial or venous sample on the glucometer or sent to the main laboratory for testing. SPEC TYPE Capillary SUNQUEST 12/17/2019 8:55 PM EDT 12/17/2019 9:00 PM EDT Ana Jean-Baptiste MD LAB BLOOD ORDERABLE S Final Result Performing Organization Address [facility] de Phone Number SUNQUEST * (ABNORMAL) Glucose Point of Care. (12/17/2019 4:23 PM EDT) [facility] POCT Glucose 146(H) 74 - 99 mg/dL SUNQUEST Comment: Accuracy of a glucose result obtained from a capillary whole blood specimen relies upon adequate, non-compromised capillary blood flow.If the capillary glucose result is not consistent with the patient's clinical signs and symptoms, glucose testing should be repeated with either an arterial or venous sample on the glucometer or sent to the main laboratory for testing. SPEC TYPE Capillary SUNQUEST 12/17/2019 4:23 PM EDT 12/17/2019 9:05 PM EDT Ana Jean-Baptiste MD LAB BLOOD ORDERABLE S Final Result Performing Organization Address [facility] de Phone Number SUNQUEST * (ABNORMAL) Glucose Point of Care. (12/17/2019 12:18 PM EDT) [facility] POCT Glucose 148(H) 74 - 99 mg/dL SUNQUEST Comment: Accuracy of a glucose result obtained from a capillary whole blood specimen relies upon adequate, non-compromised capillary blood flow.If the capillary glucose result is not consistent with the patient's clinical signs and symptoms, glucose testing should be repeated with either an arterial or venous sample on the glucometer or sent to the main laboratory for testing. SPEC TYPE Capillary SUNQUEST 12/17/2019 12:1 8 PM EDT 12/17/2019 4:00 PM EDT Ana Jean-Baptiste MD LAB BLOOD ORDERABLE S Final Result Performing Organization Address [facility] Co de Phone Number SUNQUEST * (ABNORMAL) Troponin T, High Sensitivity, 2 Hour, Plasma (12/17/2019 9:34 AM EDT) [facility] Troponin, High Sensitivity, Data Conversion 25(H) <14 ng/L SUNQUEST Comment: (NOTE) Interpretation Cut off (99th%ile) values for healthy adults, based upon available literature, clinical guidelines and internal validation: 13 ng/L or less for women 18 ng/L or less for men. Serial troponin measurements are highly recommended for the exclusion of acute coronary syndromes. ??High Sensitivity Troponin T values greater than the 99th%ile ??with a rising or falling pattern (a change of >= 10 ng/L in serial samples drawn between 2-6 hours) highly suggests acute cardiac injury. ??Acute cardiac injury does not equate to acute myocardial infarction. ??Additional clinical criteria are necessary for the diagnosis of acute myocardial infarction.1 In non-ACS presentations, High Sensitivity Troponin T values greater than the 99th%ile are associated with increased risk of mortality; however, there is limited data regarding the clinical utility of serial measurements or the specific cardiovascular risk. 1Fourth [place] Definition of Myocardial Infarction (2018). JAC 2 Hour Delta Not significant. No acute change in troponin observed between the baseline and 2 hour samples. SUNQUEST 12/17/2019 9:34 AM EDT 12/17/2019 9:39 AM EDT Vijay Morin MD LAB BLOOD ORDERABLES Fin al Result Performing Organization Address City/[facility]/ZIP Co de Phone Number SUNQUEST * (ABNORMAL) Glucose Point of Care. (12/17/2019 8:19 AM EDT) [facility] POCT Glucose 127(H) 74 - 99 mg/dL SUNQUEST Comment: Accuracy of a glucose result obtained from a capillary whole blood specimen relies upon adequate, non-compromised capillary blood flow.If the capillary glucose result is not consistent with the patient's clinical signs and symptoms, glucose testing should be repeated with either an arterial or venous sample on the glucometer or sent to the main laboratory for testing. SPEC TYPE Capillary SUNQUEST 12/17/2019 8:19 AM EDT 12/17/2019 12:00 PM EDT Ana Jean-Baptiste MD LAB BLOOD ORDERABLE S Final Result SUNQUEST * (ABNORMAL) Troponin T, High Sensitivity, 0 Hour Plasma (12/17/2019 6:03 AM EDT) [facility] Troponin, High Sensitivity, Data Conversion 24(H) <14 ng/L SUNQUEST Comment: (NOTE) Interpretation Cut off (99th%ile) values for healthy adults, based upon available literature, clinical guidelines and internal validation: 13 ng/L or less for women 18 ng/L or less for men. Serial troponin measurements are highly recommended for the exclusion of acute coronary syndromes. ??High Sensitivity Troponin T values greater than the 99th%ile ??with a rising or falling pattern (a change of >= 10 ng/L in serial samples drawn between 2-6 hours) highly suggests acute cardiac injury. ??Acute cardiac injury does not equate to acute myocardial infarction. ??Additional clinical criteria are necessary for the diagnosis of acute myocardial infarction.1 In non-ACS presentations, High Sensitivity Troponin T values greater than the 99th%ile are associated with increased risk of mortality; however, there is limited data regarding the clinical utility of serial measurements or the specific cardiovascular risk. 1Fourth [place] Definition of Myocardial Infarction (2018). [facility] 12/17/2019 6:03 AM EDT 12/17/2019 6:06 AM EDT us Vijay Morin MD LAB BLOOD ORDERABLES Fin al Result SUNQUEST * ECG ADULT (12/17/2019) Narrative 12/17/2019 Ordered by an unspecified provider. us Historical Provider ECG ORDERABLES Final Res ult * Glucose Point of Care. (12/16/2019 7:59 PM EDT) [facility] POCT Glucose 98 74 - 99 mg/dL SUNQUEST Comment: Accuracy of a glucose result obtained from a capillary whole blood specimen relies upon adequate, non-compromised capillary blood flow.If the capillary glucose result is not consistent with the patient's clinical signs and symptoms, glucose testing should be repeated with either an arterial or venous sample on the glucometer or sent to the main laboratory for testing. SPEC TYPE Capillary SUNQUEST 12/16/2019 7:59 PM EDT 12/16/2019 8:05 PM EDT Ana Jean-Baptiste MD LAB BLOOD ORDERABLE S Final Result Performing Organization Address [facility] de Phone Number SUNQUEST * (ABNORMAL) Glucose Point of Care. (12/16/2019 4:36 PM EDT) [facility] POCT Glucose 152(H) 74 - 99 mg/dL SUNQUEST Comment: Accuracy of a glucose result obtained from a capillary whole blood specimen relies upon adequate, non-compromised capillary blood flow.If the capillary glucose result is not consistent with the patient's clinical signs and symptoms, glucose testing should be repeated with either an arterial or venous sample on the glucometer or sent to the main laboratory for testing. SPEC TYPE Capillary SUNQUEST 12/16/2019 4:36 PM EDT 12/17/2019 7:50 AM EDT [facility] BLOOD ORDERABLE S Final Result Performing Organization Address [facility] Phone Number SUNQUEST * (ABNORMAL) Glucose Point of Care. (12/16/2019 11:40 AM EDT) [facility] POCT Glucose 182(H) 74 - 99 mg/dL SUNQUEST Comment: Accuracy of a glucose result obtained from a capillary whole blood specimen relies upon adequate, non-compromised capillary blood flow.If the capillary glucose result is not consistent with the patient's clinical signs and symptoms, glucose testing should be repeated with either an arterial or venous sample on the glucometer or sent to the main laboratory for testing. SPEC TYPE Capillary SUNQUEST 12/16/2019 11:4 0 AM EDT 12/16/2019 4:30 PM EDT [facility] LAB BLOOD ORDERABLE S Final Result Performing Organization Address [facility] de Phone Number SUNQUEST * (ABNORMAL) Glucose Point of Care. (12/16/2019 7:33 AM EDT) [facility] POCT Glucose 136(H) 74 - 99 mg/dL SUNQUEST Comment: Accuracy of a glucose result obtained from a capillary whole blood specimen relies upon adequate, non-compromised capillary blood flow.If the capillary glucose result is not consistent with the patient's clinical signs and symptoms, glucose testing should be repeated with either an arterial or venous sample on the glucometer or sent to the main laboratory for testing. SPEC TYPE Capillary SUNQUEST 12/16/2019 7:33 AM EDT 12/16/2019 7:55 AM EDT Ana Jean-Baptiste MD LAB BLOOD ORDERABLE S Final Result Performing Organization Address City/[facility]/ZIP Co de Phone Number SUNQUEST * Potassium, Plasma (12/16/2019 4:16 AM EDT) Potassium, Plasma 3.8 3.7 - 4.8 mmol/L SUNQUEST 12/16/2019 4:16 AM EDT 12/16/2019 4:28 AM EDT Result [facility] Rupesh Sierra MD LAB BLOOD ORDERABLES Final Resu lt Performing Organization Address [facility] Co de Phone Number SUNQUEST * (ABNORMAL) CBC W/O Differential (12/16/2019 4:16 AM EDT) WBC Count 6.62 3.7 - 10.3 k/uL SUNQUEST RBC Count 4.01 3.9 - 5.2 M/uL SUNQUEST HGB 10.7(L) 11.2 - 15.7 g/dL SUNQUEST HCT 37.3 34 - 45 % SUNQUEST Platelet Count 267 155 - 369 k/uL SUNQUEST MCV 93 79 - 98 fL SUNQUEST MCH 26.7 26 - 32 pg SUNQUEST MCHC 28.7(L) 30.7 - 35.5 g/dL SUNQUEST RDW 18.6(H) 12.4 - 14.9 % SUNQUEST MPV 9.0 8.8 - 12.5 fL SUNQUEST NRBC COUNT 0.0 0 % SUNQUEST 12/16/2019 4:16 AM EDT 12/16/2019 4:27 AM EDT Rupesh Sierra MD LAB BLOOD ORDERABLES Final Resu lt Performing Organization Address [facility] Co de Phone Number SUNQUEST * (ABNORMAL) WBC Differential (12/16/2019 4:16 AM EDT) [facility] Differential Type AUTOMATED SUNQUEST Neutrophils % 64 % SUNQUEST Lymphocytes 19 % SUNQUEST Monocytes 9 % SUNQUEST Eosinophils 6 % SUNQUEST Basophils 1 % SUNQUEST Immature Granulocytes % 1 % SUNQUEST ABS Neutrophil 4.26 1.6 - 6.1 k/uL SUNQUEST ABS Lymphocyte 1.23 1.2 - 3.9 k/uL SUNQUEST ABS Monocyte 0.60 0.3 - 0.9 k/uL SUNQUEST ABS Eosinophil 0.42 0.0 - 0.5 k/uL SUNQUEST ABS Basophil 0.04 0.0 - 0.1 k/uL SUNQUEST Immature Granulocyte Absolute 0.07(H) 0 - 0.06 k/uL SUNQUEST 12/16/2019 4:16 AM EDT 12/16/2019 4:27 AM EDT Narrative SUNQUEST - 12/16/2019 4:41 AM EDT Therapeutic decision making should be based on absolute values, rather than percentages. Therapeutic decision making should be based on absolute values, rather than percentages. Therapeutic decision making should be based on absolute values, rather than percentages. Therapeutic decision making should be based on absolute values, rather than percentages. Rupesh Sierra MD LAB BLOOD ORDERABLES Final Resu lt Performing Organization Address [facility] de Phone Number SUNQUEST * ECG ADULT (12/16/2019) Narrative 12/16/2019 Ordered by an unspecified provider. Historical Provider ECG ORDERABLES Final Res ult * (ABNORMAL) Glucose Point of Care. (12/15/2019 7:37 PM EDT) [facility] POCT Glucose 105(H) 74 - 99 mg/dL SUNQUEST Comment: Accuracy of a glucose result obtained from a capillary whole blood specimen relies upon adequate, non-compromised capillary blood flow.If the capillary glucose result is not consistent with the patient's clinical signs and symptoms, glucose testing should be repeated with either an arterial or venous sample on the glucometer or sent to the main laboratory for testing. SPEC TYPE Capillary SUNQUEST 12/15/2019 7:37 PM EDT 12/15/2019 8:30 PM EDT Ana Jean-Baptiste MD LAB BLOOD ORDERABLE S Final Result Performing Organization Address City/[facility] Co de Phone Number SUNQUEST * (ABNORMAL) Glucose Point of Care. (12/15/2019 3:28 PM EDT) [facility] POCT Glucose 148(H) 74 - 99 mg/dL SUNQUEST Comment: Accuracy of a glucose result obtained from a capillary whole blood specimen relies upon adequate, non-compromised capillary blood flow.If the capillary glucose result is not consistent with the patient's clinical signs and symptoms, glucose testing should be repeated with either an arterial or venous sample on the glucometer or sent to the main laboratory for testing. SPEC TYPE Capillary SUNQUEST 12/15/2019 3:28 PM EDT 12/15/2019 3:35 PM EDT [facility] MD LAB BLOOD ORDERABLE S Final Result Performing Organization Address [facility] Co de Phone Number SUNQUEST * (ABNORMAL) Glucose Point of Care. (12/15/2019 12:10 PM EDT) [facility] POCT Glucose 152(H) 74 - 99 mg/dL SUNQUEST Comment: Accuracy of a glucose result obtained from a capillary whole blood specimen relies upon adequate, non-compromised capillary blood flow.If the capillary glucose result is not consistent with the patient's clinical signs and symptoms, glucose testing should be repeated with either an arterial or venous sample on the glucometer or sent to the main laboratory for testing. SPEC TYPE Capillary SUNQUEST 12/15/2019 12:1 0 PM EDT 12/15/2019 12:15 PM EDT Ana Jean-Baptiste MD LAB BLOOD ORDERABLE S Final Result Performing Organization Address City/[facility]/ZIP Co de Phone Number SUNQUEST * (ABNORMAL) Glucose Point of Care. (12/15/2019 9:33 AM EDT) [facility] POCT Glucose 133(H) 74 - 99 mg/dL SUNQUEST Comment: Accuracy of a glucose result obtained from a capillary whole blood specimen relies upon adequate, non-compromised capillary blood flow.If the capillary glucose result is not consistent with the patient's clinical signs and symptoms, glucose testing should be repeated with either an arterial or venous sample on the glucometer or sent to the main laboratory for testing. SPEC TYPE Capillary SUNQUEST 12/15/2019 9:33 AM EDT 12/15/2019 9:35 AM EDT Ana Jean-Baptiste MD LAB BLOOD ORDERABLE S Final Result Performing Organization Address [facility] de Phone Number SUNQUEST * (ABNORMAL) Glucose Point of Care. (12/14/2019 9:54 PM EDT) [facility] POCT Glucose 115(H) 74 - 99 mg/dL SUNQUEST Comment: Accuracy of a glucose result obtained from a capillary whole blood specimen relies upon adequate, non-compromised capillary blood flow.If the capillary glucose result is not consistent with the patient's clinical signs and symptoms, glucose testing should be repeated with either an arterial or venous sample on the glucometer or sent to the main laboratory for testing. SPEC TYPE Capillary SUNQUEST 12/14/2019 9:54 PM EDT 12/14/2019 10:00 PM EDT Ana Jean-Baptiste MD LAB BLOOD ORDERABLE S Final Result Performing Organization Address [facility] Co de Phone Number SUNQUEST * (ABNORMAL) Glucose Point of Care. (12/14/2019 5:48 PM EDT) [facility] POCT Glucose 109(H) 74 - 99 mg/dL SUNQUEST Comment: Accuracy of a glucose result obtained from a capillary whole blood specimen relies upon adequate, non-compromised capillary blood flow.If the capillary glucose result is not consistent with the patient's clinical signs and symptoms, glucose testing should be repeated with either an arterial or venous sample on the glucometer or sent to the main laboratory for testing. SPEC TYPE Capillary SUNQUEST 12/14/2019 5:48 PM EDT 12/14/2019 5:50 PM EDT Ana Jean-Baptiste MD LAB BLOOD ORDERABLE S Final Result SUNQUEST * Neisseria gonorrhea DNA by PCR (12/14/2019 4:56 PM EDT) Neisseria gonorrhea DNA PCR Result NEGATIVE for Neisseria gonorrhoeae DNA by nucleic acid amplification. Reference Range: No DNA for Neisseria gonorrhoeae detected. This test is performed by the [employer] instrument for Real Time PCR C. trachomatis and N. gonorrhea. The FDA approved specimen sources for this assay are urine, vaginal swabs, throat swabs, rectal swabs and cervical swabs. This laboratory is certified under the Clinical Laboratory Improvement Amendments of 1988 (CLIA-88) as qualified to perform high complexity clinical laboratory testing. The [facility] Clinical Microbiology Laboratory is certified under the Clinical Laboratory Improvement Amendments of 1988 (CLIA-88) as qualified to perform high complexity clinical laboratory testing. SUNQUEST Specimen Description URINE CORRECTED ON 12/13 AT 1745: PREVIOUSLY REPORTED Urine (URINE) SUNQUEST 12/14/2019 4:56 PM EDT 12/14/2019 5:45 PM EDT Rupesh Sierra MD LAB MICROBIOLOGY - GENERAL [place] Final Result Performing Organization Address City/[facility]/ZIP Co de Phone Number SUNQUEST * Chlamydia trachomatis DNA by PCR (12/14/2019 4:56 PM EDT) Chlamydia trachomatis DNA by PCR NEGATIVE for Chlamydia trachomatis plasmid by nucleic acid amplification. Reference Range: No DNA Chlamydia trachomatis plasmid detected. This test is performed by the [employer] m2000 instrument for Real Time PCR C. trachomatis and N. gonorrhea. The FDA approved specimen sources for this assay are urine, vaginal swabs, throat swabs, rectal swabs and cervical swabs. This laboratory is certified under the Clinical Laboratory Improvement Amendments of 1988 (CLIA-88) as qualified to perform high complexity clinical laboratory testing. The [facility] Clinical Microbiology Laboratory is certified under the Clinical Laboratory Improvement Amendments of 1988 (CLIA-88) as qualified to perform high complexity clinical laboratory testing. SUNQUEST Specimen Description URINE CORRECTED ON 12/13 AT 1745: PREVIOUSLY REPORTED Urine (URINE) SUNQUEST 12/14/2019 4:56 PM EDT 12/14/2019 5:45 PM EDT Rupesh Sierra MD LAB MICROBIOLOGY - [facility] Final Result Performing Organization Address City/[facility]/ZIP Co de Phone Number SUNQUEST * (ABNORMAL) Glucose Point of Care. (12/14/2019 12:22 PM EDT) POCT Glucose 173(H) 74 - 99 mg/dL SUNQUEST Comment: Accuracy of a glucose result obtained from a capillary whole blood specimen relies upon adequate, non-compromised capillary blood flow.If the capillary glucose result is not consistent with the patient's clinical signs and symptoms, glucose testing should be repeated with either an arterial or venous sample on the glucometer or sent to the main laboratory for testing. SPEC TYPE Capillary SUNQUEST 12/14/2019 12:2 2 PM EDT 12/14/2019 4:30 PM EDT Ana Jean-Baptiste MD LAB BLOOD ORDERABLE S Final Result Performing Organization Address [facility] Co de Phone Number SUNQUEST * (ABNORMAL) Glucose Point of Care. (12/14/2019 8:37 AM EDT) POCT Glucose 136(H) 74 - 99 mg/dL SUNQUEST Comment: Accuracy of a glucose result obtained from a capillary whole blood specimen relies upon adequate, non-compromised capillary blood flow.If the capillary glucose result is not consistent with the patient's clinical signs and symptoms, glucose testing should be repeated with either an arterial or venous sample on the glucometer or sent to the main laboratory for testing. SPEC TYPE Capillary SUNQUEST 12/14/2019 8:37 AM EDT 12/14/2019 4:30 PM EDT Ana Jean-Baptiste MD LAB BLOOD ORDERABLE S Final Result Performing Organization Address [facility] Phone Number SUNQUEST * (ABNORMAL) Glucose Point of Care. (12/13/2019 9:02 PM EDT) [facility] POCT Glucose 145(H) 74 - 99 mg/dL SUNQUEST Comment: Accuracy of a glucose result obtained from a capillary whole blood specimen relies upon adequate, non-compromised capillary blood flow.If the capillary glucose result is not consistent with the patient's clinical signs and symptoms, glucose testing should be repeated with either an arterial or venous sample on the glucometer or sent to the main laboratory for testing. SPEC TYPE Capillary SUNQUEST 12/13/2019 9:02 PM EDT 12/13/2019 9:10 PM EDT Result [facility] Ana Jean-Baptiste MD LAB BLOOD ORDERABLE S Final Result Performing Organization Address [facility] Phone Number SUNQUEST * C-Reactive Protein, Plasma (12/13/2019 6:01 PM EDT) [facility] CRP 0.5 0 - 0.9 mg/dL SUNQUEST Comment: This CRP test is appropriate for assessment of infection, systemic inflammation or tissue injury. It is not appropriate for cardiovascular disease risk assessment which requires a more sensitive assay (high sensitivity CRP). 12/13/2019 6:01 PM EDT 12/13/2019 6:09 PM EDT Result [facility] Rupesh Sierra MD LAB BLOOD ORDERABLES Final Resu lt Performing Organization Address [facility] de Phone Number SUNQUEST * (ABNORMAL) Basic Metabolic Panel, Plasma (12/13/2019 6:01 PM EDT) [facility] Glucose, Plasma 159(H) 74 - 99 mg/dL SUNQUEST BUN, Plasma 19 8 - 23 mg/dL SUNQUEST Creatinine, Plasma 0.85 0.60 - 1.10 mg/dL SUNQUEST BUN/Creatinine Ratio 22(H) 8 - 20 SUNQUEST Sodium, Plasma 144 136 - 145 mmol/L SUNQUEST Potassium, Plasma 3.1(L) 3.7 - 4.8 mmol/L SUNQUEST Chloride, Plasma 97 97 - 107 mmol/L SUNQUEST CO2, Plasma 32(H) 22 - 29 mmol/L SUNQUEST Anion Gap 15 6 - 16 mmol/L SUNQUEST Calcium, Plasma 8.5(L) 8.9 - 10.2 mg/dL SUNQUEST eGFR >60 SEE NOTE SUNQUEST eGFR, if AFR/AM >60 >60 SEE NOTE SUNQUEST Comment: (NOTE) eGFR = estimated GFR; eGFR units = mL/min/1.73 sq meters Chronic Kidney Disease is considered if eGFR <60 mL/min/1.73 sq meters Kidney failure is considered if eGFR is <15 mL/min/1.73 sq meters. eGFR assumes steady state plasma creatinine concentration; not applicable if renal function is rapidly changing or patient is on dialysis. 12/13/2019 6:01 PM EDT 12/13/2019 6:09 PM EDT Rupesh Sierra MD LAB BLOOD ORDERABLES Final Resu lt JONNY * (ABNORMAL) CBC W/O Differential (12/13/2019 6:01 PM EDT) WBC Count 12.77(H) 3.7 - 10.3 k/uL SUNQUEST RBC Count 3.89(L) 3.9 - 5.2 M/uL SUNQUEST HGB 10.6(L) 11.2 - 15.7 g/dL SUNQUEST HCT 35.8 34 - 45 % SUNQUEST Platelet Count 300 155 - 369 k/uL SUNQUEST MCV 92 79 - 98 fL SUNQUEST MCH 27.2 26 - 32 pg SUNQUEST MCHC 29.6(L) 30.7 - 35.5 g/dL SUNQUEST RDW 19.1(H) 12.4 - 14.9 % SUNQUEST MPV 10.0 8.8 - 12.5 fL SUNQUEST NRBC COUNT 0.0 0 % SUNQUEST 12/13/2019 6:01 PM EDT 12/13/2019 6:10 PM EDT us Rupesh Sierra MD LAB BLOOD ORDERABLES Final Resu lt Performing Organization Address [facility] de Phone Number SUNQUEST * (ABNORMAL) WBC Differential (12/13/2019 6:01 PM EDT) Pathologist [facility] Differential Type AUTOMATED SUNQUEST Neutrophils % 83 % SUNQUEST Lymphocytes 10 % SUNQUEST Monocytes 6 % SUNQUEST Eosinophils 1 % SUNQUEST Basophils 0 % SUNQUEST Immature Granulocytes % 0 % SUNQUEST ABS Neutrophil 10.49(H) 1.6 - 6.1 k/uL SUNQUEST ABS Lymphocyte 1.30 1.2 - 3.9 k/uL SUNQUEST ABS Monocyte 0.81 0.3 - 0.9 k/uL SUNQUEST ABS Eosinophil 0.10 0.0 - 0.5 k/uL SUNQUEST ABS Basophil 0.02 0.0 - 0.1 k/uL SUNQUEST Immature Granulocyte Absolute 0.05 0 - 0.06 k/uL SUNQUEST 12/13/2019 6:01 PM EDT 12/13/2019 6:10 PM EDT Narrative SUNQUEST - 12/13/2019 6:17 PM EDT Therapeutic decision making should be based on absolute values, rather than percentages. Therapeutic decision making should be based on absolute values, rather than percentages. Therapeutic decision making should be based on absolute values, rather than percentages. Therapeutic decision making should be based on absolute values, rather than percentages. us Rupesh Sierra MD LAB BLOOD ORDERABLES Final Resu lt Performing Organization Address [facility] de Phone Number SUNQUEST * Syphilis Antibodies, IgG and IgM (12/13/2019 6:01 PM EDT) [facility] External Syphilis Total Ab NONREACTIVE Nonreactive. No serologic evidence of syphilis. No follow-up necessary unless clinically indicated (e.g., early syphilis). SUNQUEST 12/13/2019 6:01 PM EDT 12/13/2019 6:08 PM EDT Rupesh Sierra MD LAB BLOOD ORDERABLES Final Resu lt Performing Organization Address [facility] de Phone Number SUNQUEST * Rapid Plasma Reagin (RPR) (12/13/2019 6:01 PM EDT) RPR Titer NONREACTIVE Reference Value: Nonreactive SUNQUEST 12/13/2019 6:01 PM EDT 12/13/2019 6:08 PM EDT Result [facility] Rupesh Sierra MD LAB BLOOD ORDERABLES Final Resu lt SUNQUEST * HIV 1 & 2 Antibody/Antigen Screen (12/13/2019 6:01 PM EDT) HIV 1 Result NONREACTIVE Screening for HIV 1 and 2 antibodies is NONREACTIVE. No confirmatory testing is required. SUNQUEST 12/13/2019 6:01 PM EDT 12/13/2019 6:08 PM EDT Rupesh Sierra MD LAB BLOOD ORDERABLES Final Resu lt Performing Organization Address [facility] de Phone Number SUNQUEST * Hepatitis C Antibody (12/13/2019 6:01 PM EDT) Hepatitis C Antibody NEGATIVE Reference Range: Negative SUNQUEST 12/13/2019 6:01 PM EDT 12/13/2019 6:08 PM EDT Result [facility] Rupesh Sierra MD LAB BLOOD ORDERABLES Final Resu lt Performing Organization Address [facility]/ZIP Co de Phone Number SUNQUEST * Hepatitis B Surface Antigen (12/13/2019 6:01 PM EDT) Hepatitis B Surf Antigen NEGATIVE Reference Value: Negative SUNQUEST 12/13/2019 6:01 PM EDT 12/13/2019 6:08 PM EDT Rupesh Sierra MD LAB BLOOD ORDERABLES Final Resu lt SUNQUEST * Hepatitis B Surface Antibody (12/13/2019 6:01 PM EDT) Pathologist [facility] Hepatitis B Surface Antibody 0.19 NEGATIVE Antibodies to HBsAg are less than 8 International Units/L which indicate they are not detected or are below the protective level for immunity. SUNQUEST 12/13/2019 6:01 PM EDT 12/13/2019 6:08 PM EDT Rupesh Sierra MD LAB BLOOD ORDERABLES Final Resu lt Performing Organization Address [facility] de Phone Number SUNQUEST * Hepatitis B Core Total Antibody IgG,IgM (12/13/2019 6:01 PM EDT) [facility] Hepatitis B Core Total Antibody IgG,IgM NEGATIVE Reference Value: Negative SUNQUEST 12/13/2019 6:01 PM EDT 12/13/2019 6:08 PM EDT Rupesh Sierra MD LAB BLOOD ORDERABLES Final Resu lt Performing Organization Address [facility] de Phone Number SUNQUEST * Hepatitis A Antibody IgG (12/13/2019 6:01 PM EDT) [facility] Hepatitis A Antibody IgG POSITIVE Reference Value: Negative SUNQUEST 12/13/2019 6:01 PM EDT 12/13/2019 6:08 PM EDT Rupesh Sierra MD LAB BLOOD ORDERABLES Final Resu lt Performing Organization Address [facility] de Phone Number SUNQUEST * (ABNORMAL) Glucose Point of Care. (12/13/2019 5:36 PM EDT) [facility] POCT Glucose 153(H) 74 - 99 mg/dL SUNQUEST Comment: Accuracy of a glucose result obtained from a capillary whole blood specimen relies upon adequate, non-compromised capillary blood flow.If the capillary glucose result is not consistent with the patient's clinical signs and symptoms, glucose testing should be repeated with either an arterial or venous sample on the glucometer or sent to the main laboratory for testing. SPEC TYPE Capillary SUNQUEST 12/13/2019 5:36 PM EDT 12/13/2019 5:45 PM EDT us Ana Jean-Baptiste MD LAB BLOOD ORDERABLE S Final Result SUNQUEST * CT Abdomen Pelvis wo IV Contrast (12/13/2019 12:57 PM EDT) Anatomical Region Laterality Modality Abdomen, Pelvis Computed Tomogra phy Narrative 12/13/2019 2:23 PM EDT REQUESTING PHYSICIAN: JACKY NICOLE REASON FOR EXAMINATION/PROCEDURE: RAD PDP:Y ??* ??infection of retroperitoneal to left paraspinal/psoas hematoma EXAMINATION / PROCEDURE: CT Abdomen & Pelvis WO IVCON Apr ??7 2019 12:57; ? CLINICAL I NDICATION: infection of retroperitoneal to left paraspinal/psoas hematoma TECHNIQUE: Multiple axial CT images were obtained from lung bases through pubic symphysis without the administration of IV contrast. Reformatted images in the coronal and sagittal planes were generated from the axial data set to facilitate diagnostic accuracy. Total DLP (Dose-Length Product): 1234.94 mGy.cm. Please note: The reported value represents the total of one or more individual components during th e CT acquisition on this date and at this time, and as such, the same value may appear in more than one CT report depending on the interpreting/reporting physicians. COMPARISON: CT abdomen and pelvis 11/23/2019. Outside CT abdomen and pelvis . FINDINGS: Lower Chest: Significant reduced size of the left pleural effusion with decreased bandlike atelectasis and residual pleural thickening. Analysis of the abdominopelvic viscera is limited by the absence of intravenous cont rast material. Solid Abdominal Organs: Interval drain placement into the left perirenal space hematoma which is intervally reduced in size and now measuring 9 x 6 x 11 cm (coronal series 4 image 102), compared with 12 x 12 x 17 on the 11/23/19 study using comparative measurements. There remains scattered internal gaseous foci. The hematoma again extends into the posterior pararenal space and into left paraspinal region, which also appears decreased from prior study. The left kid iona remains displaced anteriorly from the hematoma with embolic coils noted. There is again a 1.9 cm interpolar renal cyst in the right kidney. Status post cholecystectomy. No additional significant findings within the abdominal viscera. GI T ract/Mesentery/Peritoneum: No signs of bowel obstruction or mural thickening.. Pelvic Viscera: No pelvic masses. Lymph Nodes/Vasculature: No significant lymphadenopathy. Free Fluid: No ascites. Musculoskeletal and Body Wall: Degenerativ e changes. No aggressive osseous or body wall lesions. ?? IMPRESSION: Significant interval decrease in size of the left retroperitoneal hematoma involving the left perirenal, pararenal and paraspinal regions status post perirenal space drain ??placement. Decreased left pleural effusion and atelectasis with pleural thickening. CRITICAL RESULT: ?? No. COMMUNICATION: Per this written report. By electronically signing this report, I, the attending physician, attest that I have ??personally reviewed the images/data for the above examination(s) and agree with the final edited report. ?? Verified by: GUILLE RIOS M.D. on Dec ??2019 ??2:21P Transcribed by: PUMA on Dec ??2019 ??1:10P Dictated by: Mina PATTERSON Dec ??7 2019 ??1:10P Procedure Note Guille Rios - 12/31/2020 REQUESTING PHYSICIAN: JACKY NICOLE REASON FOR EXAMINATION/PROCEDURE: RAD PDP:Y * infection of retroperitoneal to left paraspinal/psoas hematoma EXAMINATION / PROCEDURE: CT Abdomen & Pelvis WO IVCON Dec 13 2019 - 12:57; CLINICAL I NDICATION: infection of retroperitoneal to left paraspinal/psoas hematoma TECHNIQUE: Multiple axial CT images were obtained from lung bases through pubic symphysis without the administration of IV contrast. Reformatted images in the coronal and sagittal planes were generated from the axial data set to facilitate diagnostic accuracy. Total DLP (Dose-Length Product): 1234.94 mGy.cm. Please note: The reported value represents the total of one or more individual components during e CT acquisition on this date and at this time, and as such, the same value may appear in more than one CT report depending on the interpreting/reporting physicians. COMPARISON: CT abdomen and pelvis 11/23/2019. Outside CT abdomen and pelvis . FINDINGS: Lower Chest: Significant reduced size of the left pleural effusion with decreased bandlike atelectasis and residual pleural thickening. Analysis of the abdominopelvic viscera is limited by the absence of intravenous cont rast material. Solid Abdominal Organs: Interval drain placement into the left perirenal space hematoma which is intervally reduced in size and now measuring 9 x 6 x 11 cm (coronal series 4 image 102), compared with 12 x 12 x 17 on the 11/23/19 20 study using comparative measurements. There remains scattered internal gaseous foci. The hematoma again extends into the posterior pararenal space and into left paraspinal region, which also appears decreased from prior study. The left kid iona remains displaced anteriorly from the hematoma with embolic coils noted. There is again a 1.9 cm interpolar renal cyst in the right kidney. Status post cholecystectomy. No additional significant findings within the abdominal viscera. GI T ract/Mesentery/Peritoneum: No signs of bowel obstruction or mural thickening.. Pelvic Viscera: No pelvic masses. Lymph Nodes/Vasculature: No significant lymphadenopathy. Free Fluid: No ascites. Musculoskeletal and Body Wall: Degenerativ e changes. No aggressive osseous or body wall lesions. IMPRESSION: Significant interval decrease in size of the left retroperitoneal hematoma involving the left perirenal, pararenal and paraspinal regions status post perirenal space drain placement. Decreased left pleural effusion and atelectasis with pleural thickening. CRITICAL RESULT: No. COMMUNICATION: Per this written report. By electronically signing this report, I, the attending physician, attest that I have personally reviewed the images/data for the above examination(s) and agree with the final edited report. Verified by: GUILLE RIOS M.D. on Dec 13 2019 2:21P Transcribed by: PUMA on Dec 13 2019 1:10P Dictated by: Mina PATTERSON Dec 13 2019 1:10P Jacky Nicole MD IMG CT PROCEDURES Final Resul t * (ABNORMAL) Glucose Point of Care. (12/13/2019 12:00 PM EDT) POCT Glucose 150(H) 74 - 99 mg/dL SUNQUEST Comment: Accuracy of a glucose result obtained from a capillary whole blood specimen relies upon adequate, non-compromised capillary blood flow.If the capillary glucose result is not consistent with the patient's clinical signs and symptoms, glucose testing should be repeated with either an arterial or venous sample on the glucometer or sent to the main laboratory for testing. SPEC TYPE Capillary SUNQUEST 12/13/2019 12:0 0 PM EDT 12/13/2019 12:05 PM EDT Ana Jean-Baptiste MD LAB BLOOD ORDERABLE S Final Result Performing Organization Address [facility] Phone Number SUNQUEST * (ABNORMAL) Glucose Point of Care. (12/13/2019 7:58 AM EDT) Pathologist [facility] POCT Glucose 119(H) 74 - 99 mg/dL SUNQUEST Comment: Accuracy of a glucose result obtained from a capillary whole blood specimen relies upon adequate, non-compromised capillary blood flow.If the capillary glucose result is not consistent with the patient's clinical signs and symptoms, glucose testing should be repeated with either an arterial or venous sample on the glucometer or sent to the main laboratory for testing. SPEC TYPE Capillary SUNQUEST 12/13/2019 7:58 AM EDT 12/13/2019 8:10 AM EDT Ana Jean-Baptiste MD LAB BLOOD ORDERABLE S Final Result Performing Organization Address [facility] Phone Number SUNQUEST * (ABNORMAL) Glucose Point of Care. (12/12/2019 8:01 PM EDT) Pathologist [facility] POCT Glucose 177(H) 74 - 99 mg/dL SUNQUEST Comment: Accuracy of a glucose result obtained from a capillary whole blood specimen relies upon adequate, non-compromised capillary blood flow.If the capillary glucose result is not consistent with the patient's clinical signs and symptoms, glucose testing should be repeated with either an arterial or venous sample on the glucometer or sent to the main laboratory for testing. SPEC TYPE Capillary SUNQUEST 12/12/2019 8:01 PM EDT 12/12/2019 8:05 PM EDT us Ana Jean-Baptiste MD LAB BLOOD ORDERABLE S Final Result Performing Organization Address [facility] Co de Phone Number SUNQUEST * (ABNORMAL) Glucose Point of Care. (12/12/2019 6:43 PM EDT) [facility] POCT Glucose 197(H) 74 - 99 mg/dL SUNQUEST Comment: Accuracy of a glucose result obtained from a capillary whole blood specimen relies upon adequate, non-compromised capillary blood flow.If the capillary glucose result is not consistent with the patient's clinical signs and symptoms, glucose testing should be repeated with either an arterial or venous sample on the glucometer or sent to the main laboratory for testing. SPEC TYPE Capillary SUNQUEST 12/12/2019 6:43 PM EDT 12/12/2019 6:50 PM EDT [facility] LAB BLOOD ORDERABLE S Final Result Performing Organization Address [facility] Phone Number SUNQUEST * (ABNORMAL) Glucose Point of Care. (12/12/2019 11:14 AM EDT) [facility] POCT Glucose 202(H) 74 - 99 mg/dL SUNQUEST Comment: Accuracy of a glucose result obtained from a capillary whole blood specimen relies upon adequate, non-compromised capillary blood flow.If the capillary glucose result is not consistent with the patient's clinical signs and symptoms, glucose testing should be repeated with either an arterial or venous sample on the glucometer or sent to the main laboratory for testing. SPEC TYPE Capillary SUNQUEST 12/12/2019 11:1 4 AM EDT 12/12/2019 11:25 AM EDT Ana Jean-Baptiste MD LAB BLOOD ORDERABLE S Final Result Performing Organization Address [facility] Co de Phone Number SUNQUEST * (ABNORMAL) Glucose Point of Care. (12/12/2019 7:48 AM EDT) [facility] POCT Glucose 115(H) 74 - 99 mg/dL SUNQUEST Comment: Accuracy of a glucose result obtained from a capillary whole blood specimen relies upon adequate, non-compromised capillary blood flow.If the capillary glucose result is not consistent with the patient's clinical signs and symptoms, glucose testing should be repeated with either an arterial or venous sample on the glucometer or sent to the main laboratory for testing. SPEC TYPE Capillary SUNQUEST 12/12/2019 7:48 AM EDT 12/12/2019 7:55 AM EDT Result [facility] Ana Jean-Baptiste MD LAB BLOOD ORDERABLE S Final Result Performing Organization Address [facility] Phone Number SUNQUEST * (ABNORMAL) Glucose Point of Care. (12/11/2019 9:02 PM EDT) [facility] POCT Glucose 155(H) 74 - 99 mg/dL SUNQUEST Comment: Accuracy of a glucose result obtained from a capillary whole blood specimen relies upon adequate, non-compromised capillary blood flow.If the capillary glucose result is not consistent with the patient's clinical signs and symptoms, glucose testing should be repeated with either an arterial or venous sample on the glucometer or sent to the main laboratory for testing. SPEC TYPE Capillary SUNQUEST 12/11/2019 9:02 PM EDT 12/11/2019 9:10 PM EDT Result [facility] Ana Jean-Baptiste MD LAB BLOOD ORDERABLE S Final Result Performing Organization Address [facility] Phone Number SUNQUEST * (ABNORMAL) Glucose Point of Care. (12/11/2019 4:18 PM EDT) Pathologist [facility] POCT Glucose 210(H) 74 - 99 mg/dL SUNQUEST Comment: Accuracy of a glucose result obtained from a capillary whole blood specimen relies upon adequate, non-compromised capillary blood flow.If the capillary glucose result is not consistent with the patient's clinical signs and symptoms, glucose testing should be repeated with either an arterial or venous sample on the glucometer or sent to the main laboratory for testing. SPEC TYPE Capillary SUNQUEST 12/11/2019 4:18 PM EDT 12/11/2019 4:25 PM EDT Anaminerva Jean-Baptiste MD LAB BLOOD ORDERABLE S Final Result Performing Organization Address [facility] de Phone Number SUNQUEST * (ABNORMAL) Glucose Point of Care. (12/11/2019 11:26 AM EDT) [facility] POCT Glucose 136(H) 74 - 99 mg/dL SUNQUEST Comment: Accuracy of a glucose result obtained from a capillary whole blood specimen relies upon adequate, non-compromised capillary blood flow.If the capillary glucose result is not consistent with the patient's clinical signs and symptoms, glucose testing should be repeated with either an arterial or venous sample on the glucometer or sent to the main laboratory for testing. SPEC TYPE Capillary SUNQUEST 12/11/2019 11:2 6 AM EDT 12/11/2019 11:35 AM EDT [facility] LAB BLOOD ORDERABLE S Final Result Performing Organization Address [facility] Phone Number SUNQUEST * (ABNORMAL) Glucose Point of Care. (12/11/2019 8:11 AM EDT) [facility] POCT Glucose 124(H) 74 - 99 mg/dL SUNQUEST Comment: Accuracy of a glucose result obtained from a capillary whole blood specimen relies upon adequate, non-compromised capillary blood flow.If the capillary glucose result is not consistent with the patient's clinical signs and symptoms, glucose testing should be repeated with either an arterial or venous sample on the glucometer or sent to the main laboratory for testing. SPEC TYPE Capillary SUNQUEST 12/11/2019 8:11 AM EDT 12/11/2019 8:15 AM EDT [facility] LAB BLOOD ORDERABLE S Final Result Performing Organization Address [facility] de Phone Number SUNQUEST * (ABNORMAL) Glucose Point of Care. (12/10/2019 8:19 PM EDT) [facility] POCT Glucose 194(H) 74 - 99 mg/dL SUNQUEST Comment: Accuracy of a glucose result obtained from a capillary whole blood specimen relies upon adequate, non-compromised capillary blood flow.If the capillary glucose result is not consistent with the patient's clinical signs and symptoms, glucose testing should be repeated with either an arterial or venous sample on the glucometer or sent to the main laboratory for testing. SPEC TYPE Capillary SUNQUEST 12/10/2019 8:19 PM EDT 12/10/2019 8:40 PM EDT Result [facility] Ana Jean-Baptiste MD LAB BLOOD ORDERABLE S Final Result Performing Organization Address [facility] Phone Number SUNQUEST * (ABNORMAL) Glucose Point of Care. (12/10/2019 3:49 PM EDT) Pathologist [facility] POCT Glucose 188(H) 74 - 99 mg/dL SUNQUEST Comment: Accuracy of a glucose result obtained from a capillary whole blood specimen relies upon adequate, non-compromised capillary blood flow.If the capillary glucose result is not consistent with the patient's clinical signs and symptoms, glucose testing should be repeated with either an arterial or venous sample on the glucometer or sent to the main laboratory for testing. SPEC TYPE Capillary SUNQUEST 12/10/2019 3:49 PM EDT 12/10/2019 3:55 PM EDT Result [facility] Ana Jean-Baptiste MD LAB BLOOD ORDERABLE S Final Result Performing Organization Address [facility] Phone Number SUNQUEST * (ABNORMAL) Glucose Point of Care. (12/10/2019 11:32 AM EDT) Pathologist [facility] POCT Glucose 190(H) 74 - 99 mg/dL SUNQUEST Comment: Accuracy of a glucose result obtained from a capillary whole blood specimen relies upon adequate, non-compromised capillary blood flow.If the capillary glucose result is not consistent with the patient's clinical signs and symptoms, glucose testing should be repeated with either an arterial or venous sample on the glucometer or sent to the main laboratory for testing. SPEC TYPE Capillary SUNQUEST 12/10/2019 11:3 2 AM EDT 12/10/2019 11:35 AM EDT Ana Jean-Baptiste MD LAB BLOOD ORDERABLE S Final Result Performing Organization Address [facility] de Phone Number SUNQUEST * (ABNORMAL) Glucose Point of Care. (12/10/2019 7:59 AM EDT) Pathologist [facility] POCT Glucose 116(H) 74 - 99 mg/dL SUNQUEST Comment: Accuracy of a glucose result obtained from a capillary whole blood specimen relies upon adequate, non-compromised capillary blood flow.If the capillary glucose result is not consistent with the patient's clinical signs and symptoms, glucose testing should be repeated with either an arterial or venous sample on the glucometer or sent to the main laboratory for testing. SPEC TYPE Capillary SUNQUEST 12/10/2019 7:59 AM EDT 12/10/2019 8:00 AM EDT Ana Jean-Baptiste MD LAB BLOOD ORDERABLE S Final Result Performing Organization Address [facility] Phone Number SUNQUEST * (ABNORMAL) C-Reactive Protein, Plasma (12/10/2019 3:49 AM EDT) Pathologist [place] [facility] CRP 3.0(H) 0 - 0.9 mg/dL SUNQUEST Comment: This CRP test is appropriate for assessment of infection, systemic inflammation or tissue injury. It is not appropriate for cardiovascular disease risk assessment which requires a more sensitive assay (high sensitivity CRP). 12/10/2019 3:49 AM EDT 12/10/2019 3:56 AM EDT Jacky Nicole MD LAB BLOOD ORDERABLES Final Re sult Performing Organization Address [facility] de Phone Number SUNQUEST * (ABNORMAL) Basic Metabolic Panel, Plasma (12/10/2019 3:49 AM EDT) Glucose, Plasma 132(H) 74 - 99 mg/dL SUNQUEST BUN, Plasma 8 8 - 23 mg/dL SUNQUEST Creatinine, Plasma 0.92 0.60 - 1.10 mg/dL SUNQUEST BUN/Creatinine Ratio 9 8 - 20 SUNQUEST Sodium, Plasma 137 136 - 145 mmol/L SUNQUEST Potassium, Plasma 3.4(L) 3.7 - 4.8 mmol/L SUNQUEST Chloride, Plasma 96(L) 97 - 107 mmol/L SUNQUEST CO2, Plasma 26 22 - 29 mmol/L SUNQUEST Anion Gap 15 6 - 16 mmol/L SUNQUEST Calcium, Plasma 8.4(L) 8.9 - 10.2 mg/dL SUNQUEST eGFR >60 SEE NOTE SUNQUEST eGFR, if AFR/AM >60 >60 SEE NOTE SUNQUEST Comment: (NOTE) eGFR = estimated GFR; eGFR units = mL/min/1.73 sq meters Chronic Kidney Disease is considered if eGFR <60 mL/min/1.73 sq meters Kidney failure is considered if eGFR is <15 mL/min/1.73 sq meters. eGFR assumes steady state plasma creatinine concentration; not applicable if renal function is rapidly changing or patient is on dialysis. 12/10/2019 3:49 AM EDT 12/10/2019 3:56 AM EDT us Jacky Nicole MD LAB BLOOD ORDERABLES Final Re sult JONNY * (ABNORMAL) CBC W/O Differential (12/10/2019 3:49 AM EDT) WBC Count 7.75 3.7 - 10.3 k/uL SUNQUEST RBC Count 3.42(L) 3.9 - 5.2 M/uL SUNQUEST HGB 9.2(L) 11.2 - 15.7 g/dL SUNQUEST HCT 30.5(L) 34 - 45 % SUNQUEST Platelet Count 297 155 - 369 k/uL SUNQUEST MCV 89 79 - 98 fL SUNQUEST MCH 26.9 26 - 32 pg SUNQUEST MCHC 30.2(L) 30.7 - 35.5 g/dL SUNQUEST RDW 19.1(H) 12.4 - 14.9 % SUNQUEST MPV 9.3 8.8 - 12.5 fL SUNQUEST NRBC COUNT 0.0 0 % SUNQUEST 12/10/2019 3:49 AM EDT 12/10/2019 3:56 AM EDT us Jacky Nicole MD LAB BLOOD ORDERABLES Final Re sult Performing Organization Address [facility] de Phone Number SUNQUEST * (ABNORMAL) WBC Differential (12/10/2019 3:49 AM EDT) [facility] Differential Type AUTOMATED SUNQUEST Neutrophils % 78 % SUNQUEST Lymphocytes 16 % SUNQUEST Monocytes 5 % SUNQUEST Eosinophils 0 % SUNQUEST Basophils 0 % SUNQUEST Immature Granulocytes % 1 % SUNQUEST ABS Neutrophil 6.11(H) 1.6 - 6.1 k/uL SUNQUEST ABS Lymphocyte 1.23 1.2 - 3.9 k/uL SUNQUEST ABS Monocyte 0.36 0.3 - 0.9 k/uL SUNQUEST ABS Eosinophil 0.00 0.0 - 0.5 k/uL SUNQUEST ABS Basophil 0.01 0.0 - 0.1 k/uL SUNQUEST Immature Granulocyte Absolute 0.04 0 - 0.06 k/uL SUNQUEST 12/10/2019 3:49 AM EDT 12/10/2019 3:56 AM EDT Narrative SUNQUEST - 12/10/2019 4:08 AM EDT Therapeutic decision making should be based on absolute values, rather than percentages. Therapeutic decision making should be based on absolute values, rather than percentages. Therapeutic decision making should be based on absolute values, rather than percentages. Therapeutic decision making should be based on absolute values, rather than percentages. Jacky Nicole MD LAB BLOOD ORDERABLES Final Re sult Performing Organization Address [facility] de Phone Number SUNQUEST * (ABNORMAL) Glucose Point of Care. (12/09/2019 7:42 PM EDT) [facility] POCT Glucose 168(H) 74 - 99 mg/dL SUNQUEST Comment: Accuracy of a glucose result obtained from a capillary whole blood specimen relies upon adequate, non-compromised capillary blood flow.If the capillary glucose result is not consistent with the patient's clinical signs and symptoms, glucose testing should be repeated with either an arterial or venous sample on the glucometer or sent to the main laboratory for testing. SPEC TYPE Capillary SUNQUEST 12/09/2019 7:42 PM EDT 12/09/2019 7:45 PM EDT Anaminerva Jean-Baptiste MD LAB BLOOD ORDERABLE S Final Result Performing Organization Address [facility] Co de Phone Number SUNQUEST * (ABNORMAL) Glucose Point of Care. (12/09/2019 5:10 PM EDT) [facility] Signature POCT Glucose 142(H) 74 - 99 mg/dL SUNQUEST Comment: Accuracy of a glucose result obtained from a capillary whole blood specimen relies upon adequate, non-compromised capillary blood flow.If the capillary glucose result is not consistent with the patient's clinical signs and symptoms, glucose testing should be repeated with either an arterial or venous sample on the glucometer or sent to the main laboratory for testing. SPEC TYPE Capillary SUNQUEST 12/09/2019 5:10 PM EDT 12/09/2019 5:40 PM EDT [facility] MD LAB BLOOD ORDERABLE S Final Result Performing Organization Address [facility] de Phone Number SUNQUEST * VAS US Venous Duplex Upper Extremity Unilateral (12/09/2019 3:15 PM EDT) Anatomical Region Laterality Modality Upper Extremities, Vascular Left Ultr asound Narrative 12/09/2019 9:59 PM EDT REQUESTING PHYSICIAN: JACKY NICOLE REASON FOR EXAMINATION/PROCEDURE: Mlatoum,;Jacky;A;;([id number]) EXAMINATION / PROCEDURE: VENOUS DUPLEX UPPER EXTREMITY UN Apr3 2019 - 15:15; CLINICAL INDICATION: Acute limb swelling TECHN IQUE: Non-invasive, real time duplex exam of the upper extremity venous circulation with Doppler ultrasonic waveform and spectral analysis was performed. COMPARISON: None. FINDINGS: Right: Venous duplex demonstrates compressible IJV, sub clavian, axillary, and brachial veins. The basilic vein is noncompressible from the level of the distal humerus to the ACF, consistent with superficial thrombus. The cephalic vein is noncompressible from the level of the proximal humerus to th e ACF, consistent with superficial thrombus. The venous spectral analysis demonstrates a spontaneous, phasic and augmentable flow signal. IMPRESSION: Right: Abnormal study; no evidence of acute DVT. Superficial thrombus is demonstrated in th e basilic and cephalic veins. COMMUNICATION: Per this written report. By electronically signing this report, I, the attending physician, attest that I have personally reviewed the images/data for the above examination(s) and I agree wit h the final edited report. Verified by: JUNG OWENS M.D. on :57P Transcribed by: PUMA on Dictated by: ALEXUS SCHOFIELD R.V.T. on P Procedure Note Jung Owens - 03/13/2021 REQUESTING PHYSICIAN: JACKY NICOLE REASON FOR EXAMINATION/PROCEDURE: Corey,;Jacky;Jerrod;;([id number]) EXAMINATION / PROCEDURE: VENOUS DUPLEX UPPER EXTREMITY UN 2019 15:15; CLINICAL INDICATION: Acute limb swelling TECHN IQUE: Non-invasive, real time duplex exam of the upper extremity venous circulation with Doppler ultrasonic waveform and spectral analysis was performed. COMPARISON: None. FINDINGS: Right: Venous duplex demonstrates compressible IJV, sub clavian, axillary, and brachial veins. The basilic vein is noncompressible from the level of the distal humerus to the ACF, consistent with superficial thrombus. The cephalic vein is noncompressible from the level of the proximal humerus to th e ACF, consistent with superficial thrombus. The venous spectral analysis demonstrates a spontaneous, phasic and augmentable flow signal. IMPRESSION: Right: Abnormal study; no evidence of acute DVT. Superficial thrombus is demonstrated in th e basilic and cephalic veins. COMMUNICATION: Per this written report. By electronically signing this report, I, the attending physician, attest that I have personally reviewed the images/data for the above examination(s) and I agree wit h the final edited report. Verified by: JUNG OWENS M.D. on :57P Transcribed by: PSCB on P Dictated by: ALEXUS SCHOFIELD R.V.T. on P Jacky Nicole MD CV VASCULAR PROCEDURES Final Result * Surgical Pathology (12/09/2019 3:05 PM EDT) Skin punch biopsy specimen (specimen) 12/09/2019 3:05 PM EDT 12/09/2019 3:05 PM EDT Narrative SUNQUEST - 12/12/2019 10:16 AM EDT [place], [place] [address] MR #: [id number] NAM STYLES 1950 (Age: 69) ??FW Collect Date: 12/09/2019 15:05 Receipt Date: 12/09/2019 15:05 Page 1 DEPARTMENT OF PATHOLOGY AND LABORATORY MEDICINE SURGICAL PATHOLOGY REPORT Fax: ??[phone] ?[phone] Email: [email or web address] ? ATTENDING MD: Juanis Nicole M.D. ? Service: [facility] ? Location: [facility] OTHER MD(S): ?Reported: 12/12/2019 10:16 DIAGNOSIS SKIN, LEFT BUTTOCK, PUNCH BIOPSY: ?? - MILD DERMATITIS WITH EOSINOPHILS (SEE NOTE) NOTE The history of a penicillin allergy is noted. ??The differential for the above findings certainly includes a drug reaction. ??Clinical correlation is suggested. ? Electronically Signed Out ? jhn/12/12/2019 Gina De León M.D. ?? CLINICAL HISTORY Working diagnosis: Drug skin rash, history of penicillin allergy, was on cefepime/Flagyl ?? Operative findings: Morbilliform rash (back, buttock, abdomen, chest, BUE) Operative procedure: One punch skin biopsy (4 mm) taken from left buttock area DESCRIPTION OF SPECIMEN: A: ??Left buttock skin biopsy GROSS DESCRIPTION The specimen is received in formalin labeled skin punch , and consists of a 0.4 x 0.4 x 0.6 cm punch shaped fragment of schuler skin. The skin surface is remarkable for a pale red discoloration. The resection margin is inked blue. The specimen is entirely submitted unmodified in cassette A1. all/12/09/2019 Triston Trejo A resident may have participated in this service. ??A pathologist has performed and is responsible for the reported pathologic evaluation. ICD: L30.9 ? Dermatitis, unspecified D72.1 ? Eosinophilia SNOMED CODES: A; [id number] F: A; [id number] Jacky Nicole MD LAB PATHOLOGY ORDERABLES Fadia l Result SUNQUEST * (ABNORMAL) Glucose Point of Care. (12/09/2019 12:10 PM EDT) POCT Glucose 110(H) 74 - 99 mg/dL SUNQUEST Comment: Accuracy of a glucose result obtained from a capillary whole blood specimen relies upon adequate, non-compromised capillary blood flow.If the capillary glucose result is not consistent with the patient's clinical signs and symptoms, glucose testing should be repeated with either an arterial or venous sample on the glucometer or sent to the main laboratory for testing. SPEC TYPE Capillary SUNQUEST 12/09/2019 12:1 0 PM EDT 12/09/2019 12:25 PM EDT Ana Jean-Baptiste MD LAB BLOOD ORDERABLE S Final Result Performing Organization Address [facility]/ZIP Co de Phone Number SUNQUEST * Gram stain (12/09/2019 10:30 AM EDT) 12/09/2019 10:3 0 AM EDT 12/09/2019 1:08 PM EDT Narrative SUNQUEST - 01/12/2021 9:26 AM EDT SQ ACC. NUMBER ?[id number] SPECIMEN DESCRIPTION: ?TISSUE BIOPSY BUTTOCK LEFT SPECIAL REQUESTS: ?NONE GRAM STAIN ? NO POLYMORPHONUCLEAR WHITE BLOOD CELLS ? NO ORGANISMS SEEN REPORT STATUS: ? FINAL [id number] Result [facility] Jacky Nicole MD LAB MICROBIOLOGY - GENERAL OR DERABLES Final Result Performing Organization Address [facility] de Phone Number SUNQUEST * Tissue Culture and Gram Stain (12/09/2019 10:30 AM EDT) 12/09/2019 10:3 0 AM EDT 12/09/2019 1:08 PM EDT Narrative SUNQUEST - 01/12/2021 9:26 AM EDT SQ ACC. NUMBER ?[id number] SPECIMEN DESCRIPTION: ?TISSUE BIOPSY BUTTOCK LEFT SPECIAL REQUESTS: ?NONE QUANTITATION: ?NOT APPLICABLE CULTURE: ? NO GROWTH DAY 4. REPORT STATUS: ? FINAL [id number] us Jacky Nicole MD LAB MICROBIOLOGY - GENERAL OR DERABLES Final Result Performing Organization Address [facility] de Phone Number SUNQUEST * (ABNORMAL) Glucose Point of Care. (12/09/2019 8:23 AM EDT) [facility] POCT Glucose 107(H) 74 - 99 mg/dL SUNQUEST Comment: Accuracy of a glucose result obtained from a capillary whole blood specimen relies upon adequate, non-compromised capillary blood flow.If the capillary glucose result is not consistent with the patient's clinical signs and symptoms, glucose testing should be repeated with either an arterial or venous sample on the glucometer or sent to the main laboratory for testing. SPEC TYPE Capillary SUNQUEST 12/09/2019 8:23 AM EDT 12/09/2019 8:25 AM EDT us Ana Jean-Baptiste MD LAB BLOOD ORDERABLE S Final Result Performing Organization Address [facility] de Phone Number SUNQUEST * (ABNORMAL) Glucose Point of Care. (12/09/2019 3:03 AM EDT) [facility] POCT Glucose 107(H) 74 - 99 mg/dL SUNQUEST Comment: Accuracy of a glucose result obtained from a capillary whole blood specimen relies upon adequate, non-compromised capillary blood flow.If the capillary glucose result is not consistent with the patient's clinical signs and symptoms, glucose testing should be repeated with either an arterial or venous sample on the glucometer or sent to the main laboratory for testing. SPEC TYPE Capillary SUNQUEST 12/09/2019 3:03 AM EDT 12/09/2019 3:05 AM EDT Ana Jean-Baptiste MD LAB BLOOD ORDERABLE S Final Result Performing Organization Address [facility] Phone Number SUNQUEST * (ABNORMAL) Glucose Point of Care. (12/08/2019 9:01 PM EDT) [facility] POCT Glucose 113(H) 74 - 99 mg/dL SUNQUEST Comment: Accuracy of a glucose result obtained from a capillary whole blood specimen relies upon adequate, non-compromised capillary blood flow.If the capillary glucose result is not consistent with the patient's clinical signs and symptoms, glucose testing should be repeated with either an arterial or venous sample on the glucometer or sent to the main laboratory for testing. SPEC TYPE Capillary SUNQUEST 12/08/2019 9:01 PM EDT 12/08/2019 9:05 PM EDT Ana Jean-Baptiste MD LAB BLOOD ORDERABLE S Final Result Performing Organization Address [facility] Phone Number SUNQUEST * (ABNORMAL) Glucose Point of Care. (12/08/2019 4:24 PM EDT) Pathologist [facility] POCT Glucose 118(H) 74 - 99 mg/dL SUNQUEST Comment: Accuracy of a glucose result obtained from a capillary whole blood specimen relies upon adequate, non-compromised capillary blood flow.If the capillary glucose result is not consistent with the patient's clinical signs and symptoms, glucose testing should be repeated with either an arterial or venous sample on the glucometer or sent to the main laboratory for testing. SPEC TYPE Capillary SUNQUEST 12/08/2019 4:24 PM EDT 12/08/2019 4:30 PM EDT Ana Jean-Baptiste MD LAB BLOOD ORDERABLE S Final Result Performing Organization Address [facility] Phone Number SUNQUEST * (ABNORMAL) Glucose Point of Care. (12/08/2019 11:21 AM EDT) [facility] POCT Glucose 111(H) 74 - 99 mg/dL SUNQUEST Comment: Accuracy of a glucose result obtained from a capillary whole blood specimen relies upon adequate, non-compromised capillary blood flow.If the capillary glucose result is not consistent with the patient's clinical signs and symptoms, glucose testing should be repeated with either an arterial or venous sample on the glucometer or sent to the main laboratory for testing. SPEC TYPE Capillary SUNQUEST 12/08/2019 11:2 1 AM EDT 12/08/2019 11:50 AM EDT Result [facility] Ana Jean-Baptiste MD LAB BLOOD ORDERABLE S Final Result Performing Organization Address [facility] Phone Number SUNQUEST * (ABNORMAL) Glucose Point of Care. (12/08/2019 8:12 AM EDT) [facility] POCT Glucose 117(H) 74 - 99 mg/dL SUNQUEST Comment: Accuracy of a glucose result obtained from a capillary whole blood specimen relies upon adequate, non-compromised capillary blood flow.If the capillary glucose result is not consistent with the patient's clinical signs and symptoms, glucose testing should be repeated with either an arterial or venous sample on the glucometer or sent to the main laboratory for testing. SPEC TYPE Capillary SUNQUEST 12/08/2019 8:12 AM EDT 12/08/2019 8:15 AM EDT Result [facility] Ana Jean-Baptiste MD LAB BLOOD ORDERABLE S Final Result Performing Organization Address [facility] Phone Number SUNQUEST * Glucose Point of Care. (12/07/2019 8:59 PM EDT) [facility] POCT Glucose 84 74 - 99 mg/dL SUNQUEST Comment: Accuracy of a glucose result obtained from a capillary whole blood specimen relies upon adequate, non-compromised capillary blood flow.If the capillary glucose result is not consistent with the patient's clinical signs and symptoms, glucose testing should be repeated with either an arterial or venous sample on the glucometer or sent to the main laboratory for testing. SPEC TYPE Capillary SUNQUEST 12/07/2019 8:59 PM EDT 12/07/2019 9:00 PM EDT Ana Jean-Baptiste MD LAB BLOOD ORDERABLE S Final Result Performing Organization Address [facility] de Phone Number SUNQUEST * Glucose Point of Care. (12/07/2019 4:47 PM EDT) [facility] POCT Glucose 85 74 - 99 mg/dL SUNQUEST Comment: Accuracy of a glucose result obtained from a capillary whole blood specimen relies upon adequate, non-compromised capillary blood flow.If the capillary glucose result is not consistent with the patient's clinical signs and symptoms, glucose testing should be repeated with either an arterial or venous sample on the glucometer or sent to the main laboratory for testing. SPEC TYPE Capillary SUNQUEST 12/07/2019 4:47 PM EDT 12/07/2019 4:50 PM EDT Ana Jean-Baptiste MD LAB BLOOD ORDERABLE S Final Result Performing Organization Address [facility] de Phone Number SUNQUEST * (ABNORMAL) Glucose Point of Care. (12/07/2019 12:43 PM EDT) Pathologist [facility] POCT Glucose 102(H) 74 - 99 mg/dL SUNQUEST Comment: Accuracy of a glucose result obtained from a capillary whole blood specimen relies upon adequate, non-compromised capillary blood flow.If the capillary glucose result is not consistent with the patient's clinical signs and symptoms, glucose testing should be repeated with either an arterial or venous sample on the glucometer or sent to the main laboratory for testing. SPEC TYPE Capillary SUNQUEST 12/07/2019 12:4 3 PM EDT 12/07/2019 12:50 PM EDT us Ana Diazse Jerrod Jea-nBaptiste MD LAB BLOOD ORDERABLE S Final Result SUNQUEST * XR Abdomen 1 View (12/07/2019 9:15 AM EDT) Anatomical Region Laterality Modality Body Radiographic Juanita ging Narrative 12/07/2019 10:16 AM EDT REQUESTING PHYSICIAN: JACKY NICOLE REASON FOR EXAMINATION/PROCEDURE: RAD PDP:Y ??* ??nausea, epigastric fullness EXAMINATION / PROCEDURE: ABDOMEN 1 VIEW PORTABLE Apr ??1 2019 - 09:15; ? CLINICAL INDICATION: Nausea, epigastric fullness. TECHNIQUE: ABDOMEN 1 VIEW PORTABLE COMPARISON: Abdominal x-ray 11/30/2019. Chest x-ray 11/29/2019. CT abdomen/pelvis 11/23/2019. FINDINGS: Pigtail catheter overlying the left abdomen. Densities overlying the left renal fossa consistent w ith embolization material, seen on CT from 11/23/2019. Radiopaque metallic densities overlying the bilateral pubic bones are again noted. Paucity of small bowel gas. Gas and stool noted within the colon. No pneumatosis intestinalis or free air . The visualized chest is unchanged. No acute bony findings. ?? IMPRESSION: Pigtail catheter overlying the left abdomen. Nonobstructive bowel gas pattern. CRITICAL RESULT: ?? No. COMMUNICATION: Per this written report. By electron evonlly signing this report, I, the attending physician, attest that I have personally reviewed the images/data for the above examination(s) and agree with the final edited report. ?? Verified by: ACE LORENZANA M.D. on Dec ??2019 10:15A T ranscribed by: PUMA on Dec ??1 2020 ??9:55A Dictated by: VALERIO DOSBON D.O. on Dec ??2019 ??9:55A Procedure Note Ace Lorenzana - 12/31/2020 REQUESTING PHYSICIAN: JACKY NICOLE REASON FOR EXAMINATION/PROCEDURE: RAD PDP:Y * nausea, epigastric fullness EXAMINATION / PROCEDURE: ABDOMEN 1 VIEW PORTABLE Dec 07 2019 - 09:15; CLINICAL INDICATION: Nausea, epigastric fullness. TECHNIQUE: ABDOMEN 1 VIEW PORTABLE COMPARISON: Abdominal x-ray 11/30/2019. Chest x-ray 11/29/2019. CT abdomen/pelvis 11/23/2019. FINDINGS: Pigtail catheter overlying the left abdomen. Densities overlying the left renal fossa consistent w ith embolization material, seen on CT from 11/23/2019. Radiopaque metallic densities overlying the bilateral pubic bones are again noted. Paucity of small bowel gas. Gas and stool noted within the colon. No pneumatosis intestinalis or free air . The visualized chest is unchanged. No acute bony findings. IMPRESSION: Pigtail catheter overlying the left abdomen. Nonobstructive bowel gas pattern. CRITICAL RESULT: No. COMMUNICATION: Per this written report. By electron ically signing this report, I, the attending physician, attest that I have personally reviewed the images/data for the above examination(s) and agree with the final edited report. Verified by: ACE LORENZANA M.D. on Dec 07 2019 10:15A T ranscribed by: PUMA on Dec 07 2019 9:55A Dictated by: VALERIO DOBSON D.O. on Dec 07 2019 9:55A Jacky Nicole MD IMG XR PROCEDURES Final Resul t * (ABNORMAL) Glucose Point of Care. (12/07/2019 7:34 AM EDT) [facility] POCT Glucose 129(H) 74 - 99 mg/dL SUNQUEST Comment: Accuracy of a glucose result obtained from a capillary whole blood specimen relies upon adequate, non-compromised capillary blood flow.If the capillary glucose result is not consistent with the patient's clinical signs and symptoms, glucose testing should be repeated with either an arterial or venous sample on the glucometer or sent to the main laboratory for testing. SPEC TYPE Capillary SUNQUEST 12/07/2019 7:34 AM EDT 12/07/2019 7:55 AM EDT Ana Jean-Baptiste MD LAB BLOOD ORDERABLE S Final Result SUNQUEST * (ABNORMAL) Glucose Point of Care. (12/06/2019 8:18 PM EDT) [facility] POCT Glucose 107(H) 74 - 99 mg/dL SUNQUEST Comment: Accuracy of a glucose result obtained from a capillary whole blood specimen relies upon adequate, non-compromised capillary blood flow.If the capillary glucose result is not consistent with the patient's clinical signs and symptoms, glucose testing should be repeated with either an arterial or venous sample on the glucometer or sent to the main laboratory for testing. SPEC TYPE Venous SUNQUEST 12/06/2019 8:18 PM EDT 12/06/2019 8:25 PM EDT Ana Jean-Baptiste MD LAB BLOOD ORDERABLE S Final Result Performing Organization Address [facility] de Phone Number SUNQUEST * Glucose Point of Care. (12/06/2019 5:30 PM EDT) [facility] POCT Glucose 86 74 - 99 mg/dL SUNQUEST Comment: Accuracy of a glucose result obtained from a capillary whole blood specimen relies upon adequate, non-compromised capillary blood flow.If the capillary glucose result is not consistent with the patient's clinical signs and symptoms, glucose testing should be repeated with either an arterial or venous sample on the glucometer or sent to the main laboratory for testing. SPEC TYPE Capillary SUNQUEST 12/06/2019 5:30 PM EDT 12/06/2019 6:10 PM EDT Ana Jean-Baptiste MD LAB BLOOD ORDERABLE S Final Result Performing Organization Address [facility] Co de Phone Number SUNQUEST * (ABNORMAL) Glucose Point of Care. (12/06/2019 11:53 AM EDT) [facility] POCT Glucose 119(H) 74 - 99 mg/dL SUNQUEST Comment: Accuracy of a glucose result obtained from a capillary whole blood specimen relies upon adequate, non-compromised capillary blood flow.If the capillary glucose result is not consistent with the patient's clinical signs and symptoms, glucose testing should be repeated with either an arterial or venous sample on the glucometer or sent to the main laboratory for testing. SPEC TYPE Capillary SUNQUEST 12/06/2019 11:5 3 AM EDT 12/06/2019 12:20 PM EDT Ana Jean-Baptiste MD LAB BLOOD ORDERABLE S Final Result Performing Organization Address [facility] de Phone Number SUNQUEST * (ABNORMAL) Glucose Point of Care. (12/06/2019 8:19 AM EDT) [facility] POCT Glucose 120(H) 74 - 99 mg/dL SUNQUEST Comment: Accuracy of a glucose result obtained from a capillary whole blood specimen relies upon adequate, non-compromised capillary blood flow.If the capillary glucose result is not consistent with the patient's clinical signs and symptoms, glucose testing should be repeated with either an arterial or venous sample on the glucometer or sent to the main laboratory for testing. SPEC TYPE Capillary SUNQUEST 12/06/2019 8:19 AM EDT 12/06/2019 8:25 AM EDT Result [facility] Ana Jean-Baptiste MD LAB BLOOD ORDERABLE S Final Result Performing Organization Address [facility] Phone Number SUNQUEST * (ABNORMAL) Glucose Point of Care. (12/05/2019 8:39 PM EDT) [facility] POCT Glucose 115(H) 74 - 99 mg/dL SUNQUEST Comment: Accuracy of a glucose result obtained from a capillary whole blood specimen relies upon adequate, non-compromised capillary blood flow.If the capillary glucose result is not consistent with the patient's clinical signs and symptoms, glucose testing should be repeated with either an arterial or venous sample on the glucometer or sent to the main laboratory for testing. SPEC TYPE Venous SUNQUEST 12/05/2019 8:39 PM EDT 12/05/2019 8:45 PM EDT Result [facility] Ana Jean-Baptiste MD LAB BLOOD ORDERABLE S Final Result Performing Organization Address [facility] Co de Phone Number SUNQUEST * Glucose Point of Care. (12/05/2019 4:38 PM EDT) [facility] POCT Glucose 79 74 - 99 mg/dL SUNQUEST Comment: Accuracy of a glucose result obtained from a capillary whole blood specimen relies upon adequate, non-compromised capillary blood flow.If the capillary glucose result is not consistent with the patient's clinical signs and symptoms, glucose testing should be repeated with either an arterial or venous sample on the glucometer or sent to the main laboratory for testing. SPEC TYPE Capillary SUNQUEST 12/05/2019 4:38 PM EDT 12/05/2019 5:05 PM EDT Ana Jean-Baptiste MD LAB BLOOD ORDERABLE S Final Result Performing Organization Address [facility] de Phone Number SUNQUEST * (ABNORMAL) Glucose Point of Care. (12/05/2019 11:51 AM EDT) POCT Glucose 115(H) 74 - 99 mg/dL SUNQUEST Comment: Accuracy of a glucose result obtained from a capillary whole blood specimen relies upon adequate, non-compromised capillary blood flow.If the capillary glucose result is not consistent with the patient's clinical signs and symptoms, glucose testing should be repeated with either an arterial or venous sample on the glucometer or sent to the main laboratory for testing. SPEC TYPE Capillary SUNQUEST 12/05/2019 11:5 1 AM EDT 12/05/2019 11:55 AM EDT Ana Jean-Baptiste MD LAB BLOOD ORDERABLE S Final Result Performing Organization Address [facility] Co de Phone Number SUNQUEST * (ABNORMAL) Glucose Point of Care. (12/05/2019 7:47 AM EDT) POCT Glucose 112(H) 74 - 99 mg/dL SUNQUEST Comment: Accuracy of a glucose result obtained from a capillary whole blood specimen relies upon adequate, non-compromised capillary blood flow.If the capillary glucose result is not consistent with the patient's clinical signs and symptoms, glucose testing should be repeated with either an arterial or venous sample on the glucometer or sent to the main laboratory for testing. SPEC TYPE Capillary SUNQUEST 12/05/2019 7:47 AM EDT 12/05/2019 7:50 AM EDT us Ana Jean-Baptiste MD LAB BLOOD ORDERABLE S Final Result Performing Organization Address [facility] Co de Phone Number SUNQUEST * (ABNORMAL) Total Protein, Plasma (12/05/2019 2:40 AM EDT) Total Protein 6.1(L) 6.3 - 7.9 g/dL SUNQUEST 12/05/2019 2:40 AM EDT 12/05/2019 3:33 AM EDT us Scott Russell MD LAB BLOOD ORDERABLES Final Resu lt Performing Organization Address [facility] Co de Phone Number SUNQUEST * Total Bilirubin, Plasma (12/05/2019 2:40 AM EDT) Total Bilirubin, Plasma 0.2 0.2 - 1.1 mg/dL SUNQUEST 12/05/2019 2:40 AM EDT 12/05/2019 3:33 AM EDT us Scott Russell MD LAB BLOOD ORDERABLES Final Resu lt Performing Organization Address [facility] Co de Phone Number SUNQUEST * (ABNORMAL) Renal Function Panel, Plasma (12/05/2019 2:40 AM EDT) Glucose, Plasma 109(H) 74 - 99 mg/dL SUNQUEST BUN, Plasma 12 8 - 23 mg/dL SUNQUEST Creatinine, Plasma 0.66 0.60 - 1.10 mg/dL SUNQUEST BUN/Creatinine Ratio 18 8 - 20 SUNQUEST Sodium, Plasma 137 136 - 145 mmol/L SUNQUEST Potassium, Plasma 3.6(L) 3.7 - 4.8 mmol/L SUNQUEST Chloride, Plasma 96(L) 97 - 107 mmol/L SUNQUEST CO2, Plasma 32(H) 22 - 29 mmol/L SUNQUEST Anion Gap 9 6 - 16 mmol/L SUNQUEST Calcium, Plasma 8.9 8.9 - 10.2 mg/dL SUNQUEST Phosphorus, Plasma 3.4 2.5 - 4.5 mg/dL SUNQUEST Albumin, Plasma 1.9(L) 3.3 - 4.6 g/dL SUNQUEST eGFR >60 SEE NOTE SUNQUEST eGFR, if AFR/AM >60 >60 SEE NOTE SUNQUEST Comment: (NOTE) eGFR = estimated GFR; eGFR units = mL/min/1.73 sq meters Chronic Kidney Disease is considered if eGFR <60 mL/min/1.73 sq meters Kidney failure is considered if eGFR is <15 mL/min/1.73 sq meters. eGFR assumes steady state plasma creatinine concentration; not applicable if renal function is rapidly changing or patient is on dialysis. 12/05/2019 2:40 AM EDT 12/05/2019 3:33 AM EDT Scott Russell MD LAB BLOOD ORDERABLES Final Resu lt Performing Organization Address [facility] Phone Number SUNQUEST * Conjugated Bilirubin, Plasma (12/05/2019 2:40 AM EDT) Bili,Conj <0.2 0.0 - 0.2 mg/dL SUNQUEST 12/05/2019 2:40 AM EDT 12/05/2019 3:33 AM EDT Scott Russell MD LAB BLOOD ORDERABLES Final Resu lt Performing Organization Address [facility] Phone Number SUNQUEST * Aspartate Aminotransferase, Plasma (12/05/2019 2:40 AM EDT) AST, Plasma 14 9 - 36 U/L SUNQUEST 12/05/2019 2:40 AM EDT 12/05/2019 3:33 AM EDT Scott Russell MD LAB BLOOD ORDERABLES Final Resu lt Performing Organization Address [facility] de Phone Number SUNQUEST * Alanine Aminotransferase, Plasma (12/05/2019 2:40 AM EDT) ALT, Plasma 8 8 - 33 U/L SUNQUEST 12/05/2019 2:40 AM EDT 12/05/2019 3:33 AM EDT Scott Russell MD LAB BLOOD ORDERABLES Final Resu lt SUNQUEST * Alkaline Phosphatase (12/05/2019 2:40 AM EDT) Alkaline Phosphatase, Plasma 69 46 - 142 U/L SUNQUEST 12/05/2019 2:40 AM EDT 12/05/2019 3:33 AM EDT Scott Russell MD LAB BLOOD ORDERABLES Final Resu lt Performing Organization Address [facility]/ZIP Co de Phone Number SUNQUEST * (ABNORMAL) CBC W/O Differential (12/05/2019 2:40 AM EDT) WBC Count 14.79(H) 3.7 - 10.3 k/uL SUNQUEST RBC Count 3.39(L) 3.9 - 5.2 M/uL SUNQUEST HGB 9.2(L) 11.2 - 15.7 g/dL SUNQUEST HCT 31.5(L) 34 - 45 % SUNQUEST Platelet Count 352 155 - 369 k/uL SUNQUEST MCV 93 79 - 98 fL SUNQUEST MCH 27.1 26 - 32 pg SUNQUEST MCHC 29.2(L) 30.7 - 35.5 g/dL SUNQUEST RDW 18.7(H) 12.4 - 14.9 % SUNQUEST MPV 9.5 8.8 - 12.5 fL SUNQUEST NRBC COUNT 0.0 0 % SUNQUEST 12/05/2019 2:40 AM EDT 12/05/2019 3:32 AM EDT Scott Russell MD LAB BLOOD ORDERABLES Final Resu lt SUNQUEST * (ABNORMAL) WBC Differential (12/05/2019 2:40 AM EDT) Differential Type AUTOMATED SUNQUEST Neutrophils % 77 % SUNQUEST Lymphocytes 14 % SUNQUEST Monocytes 6 % SUNQUEST Eosinophils 2 % SUNQUEST Basophils 0 % SUNQUEST Immature Granulocytes % 1 % SUNQUEST ABS Neutrophil 11.40(H) 1.6 - 6.1 k/uL SUNQUEST ABS Lymphocyte 2.00 1.2 - 3.9 k/uL SUNQUEST ABS Monocyte 0.93(H) 0.3 - 0.9 k/uL SUNQUEST ABS Eosinophil 0.30 0.0 - 0.5 k/uL SUNQUEST ABS Basophil 0.05 0.0 - 0.1 k/uL SUNQUEST Immature Granulocyte Absolute 0.11(H) 0 - 0.06 k/uL SUNQUEST 12/05/2019 2:40 AM EDT 12/05/2019 3:32 AM EDT Narrative SUNQUEST - 12/05/2019 3:47 AM EDT Therapeutic decision making should be based on absolute values, rather than percentages. Therapeutic decision making should be based on absolute values, rather than percentages. Therapeutic decision making should be based on absolute values, rather than percentages. Therapeutic decision making should be based on absolute values, rather than percentages. us Scott Russell MD LAB BLOOD ORDERABLES Final Resu lt SUNQUEST * (ABNORMAL) Glucose Point of Care. (12/04/2019 8:57 PM EDT) [facility] POCT Glucose 123(H) 74 - 99 mg/dL SUNQUEST Comment: Accuracy of a glucose result obtained from a capillary whole blood specimen relies upon adequate, non-compromised capillary blood flow.If the capillary glucose result is not consistent with the patient's clinical signs and symptoms, glucose testing should be repeated with either an arterial or venous sample on the glucometer or sent to the main laboratory for testing. SPEC TYPE Capillary SUNQUEST 12/04/2019 8:57 PM EDT 12/04/2019 9:05 PM EDT us Ana Jean-Baptiste MD LAB BLOOD ORDERABLE S Final Result SUNQUEST * Glucose Point of Care. (12/04/2019 3:51 PM EDT) [facility] POCT Glucose 94 74 - 99 mg/dL SUNQUEST Comment: Accuracy of a glucose result obtained from a capillary whole blood specimen relies upon adequate, non-compromised capillary blood flow.If the capillary glucose result is not consistent with the patient's clinical signs and symptoms, glucose testing should be repeated with either an arterial or venous sample on the glucometer or sent to the main laboratory for testing. SPEC TYPE Capillary SUNQUEST 12/04/2019 3:51 PM EDT 12/04/2019 4:50 PM EDT Ana Jean-Baptiste MD LAB BLOOD ORDERABLE S Final Result Performing Organization Address [facility] Phone Number SUNQUEST * (ABNORMAL) Glucose Point of Care. (12/04/2019 11:04 AM EDT) [facility] POCT Glucose 183(H) 74 - 99 mg/dL SUNQUEST Comment: Accuracy of a glucose result obtained from a capillary whole blood specimen relies upon adequate, non-compromised capillary blood flow.If the capillary glucose result is not consistent with the patient's clinical signs and symptoms, glucose testing should be repeated with either an arterial or venous sample on the glucometer or sent to the main laboratory for testing. SPEC TYPE Capillary SUNQUEST 12/04/2019 11:0 4 AM EDT 12/04/2019 11:20 AM EDT Ana Jean-Baptiste MD LAB BLOOD ORDERABLE S Final Result Performing Organization Address [facility] de Phone Number SUNQUEST * (ABNORMAL) Glucose Point of Care. (12/04/2019 8:16 AM EDT) [facility] POCT Glucose 131(H) 74 - 99 mg/dL SUNQUEST Comment: Accuracy of a glucose result obtained from a capillary whole blood specimen relies upon adequate, non-compromised capillary blood flow.If the capillary glucose result is not consistent with the patient's clinical signs and symptoms, glucose testing should be repeated with either an arterial or venous sample on the glucometer or sent to the main laboratory for testing. SPEC TYPE Capillary SUNQUEST 12/04/2019 8:16 AM EDT 12/04/2019 8:25 AM EDT Result [facility] Ana Jean-Baptiste MD LAB BLOOD ORDERABLE S Final Result Performing Organization Address [facility] de Phone Number SUNQUEST * (ABNORMAL) Glucose Point of Care. (12/03/2019 8:54 PM EDT) [facility] POCT Glucose 135(H) 74 - 99 mg/dL SUNQUEST Comment: Accuracy of a glucose result obtained from a capillary whole blood specimen relies upon adequate, non-compromised capillary blood flow.If the capillary glucose result is not consistent with the patient's clinical signs and symptoms, glucose testing should be repeated with either an arterial or venous sample on the glucometer or sent to the main laboratory for testing. SPEC TYPE Capillary SUNQUEST 12/03/2019 8:54 PM EDT 12/03/2019 9:00 PM EDT Result [facility] Ana Jean-Baptiste MD LAB BLOOD ORDERABLE S Final Result Performing Organization Address [facility] Phone Number SUNQUEST * Glucose Point of Care. (12/03/2019 4:53 PM EDT) [facility] POCT Glucose 99 74 - 99 mg/dL SUNQUEST Comment: Accuracy of a glucose result obtained from a capillary whole blood specimen relies upon adequate, non-compromised capillary blood flow.If the capillary glucose result is not consistent with the patient's clinical signs and symptoms, glucose testing should be repeated with either an arterial or venous sample on the glucometer or sent to the main laboratory for testing. SPEC TYPE Capillary SUNQUEST 12/03/2019 4:53 PM EDT 12/03/2019 5:05 PM EDT Result [facility] Ana Jean-Baptiste MD LAB BLOOD ORDERABLE S Final Result Performing Organization Address [facility] Co de Phone Number SUNQUEST * (ABNORMAL) Glucose Point of Care. (12/03/2019 11:59 AM EDT) [facility] POCT Glucose 143(H) 74 - 99 mg/dL SUNQUEST Comment: Accuracy of a glucose result obtained from a capillary whole blood specimen relies upon adequate, non-compromised capillary blood flow.If the capillary glucose result is not consistent with the patient's clinical signs and symptoms, glucose testing should be repeated with either an arterial or venous sample on the glucometer or sent to the main laboratory for testing. SPEC TYPE Capillary SUNQUEST 12/03/2019 11:5 9 AM EDT 12/03/2019 12:05 PM EDT us Ana Jean-Baptiste MD LAB BLOOD ORDERABLE S Final Result SUNQUEST * (ABNORMAL) CBC W/O Differential (12/03/2019 10:13 AM EDT) WBC Count 13.47(H) 3.7 - 10.3 k/uL SUNQUEST RBC Count 3.72(L) 3.9 - 5.2 M/uL SUNQUEST HGB 9.9(L) 11.2 - 15.7 g/dL SUNQUEST HCT 33.9(L) 34 - 45 % SUNQUEST Platelet Count 280 155 - 369 k/uL SUNQUEST MCV 91 79 - 98 fL SUNQUEST MCH 26.6 26 - 32 pg SUNQUEST MCHC 29.2(L) 30.7 - 35.5 g/dL SUNQUEST RDW 18.3(H) 12.4 - 14.9 % SUNQUEST MPV 9.8 8.8 - 12.5 fL SUNQUEST NRBC COUNT 0.0 0 % SUNQUEST 12/03/2019 10:1 3 AM EDT 12/03/2019 10:23 AM EDT us Scott Russell MD LAB BLOOD ORDERABLES Final Resu lt SUNQUEST * (ABNORMAL) Glucose Point of Care. (12/03/2019 8:17 AM EDT) POCT Glucose 127(H) 74 - 99 mg/dL SUNQUEST Comment: Accuracy of a glucose result obtained from a capillary whole blood specimen relies upon adequate, non-compromised capillary blood flow.If the capillary glucose result is not consistent with the patient's clinical signs and symptoms, glucose testing should be repeated with either an arterial or venous sample on the glucometer or sent to the main laboratory for testing. SPEC TYPE Capillary SUNQUEST 12/03/2019 8:17 AM EDT 12/03/2019 8:20 AM EDT Result [facility] Ana Jean-Baptiste MD LAB BLOOD ORDERABLE S Final Result Performing Organization Address [facility] Phone Number SUNQUEST * (ABNORMAL) Glucose Point of Care. (12/02/2019 7:54 PM EDT) Pathologist [facility] POCT Glucose 186(H) 74 - 99 mg/dL SUNQUEST Comment: Accuracy of a glucose result obtained from a capillary whole blood specimen relies upon adequate, non-compromised capillary blood flow.If the capillary glucose result is not consistent with the patient's clinical signs and symptoms, glucose testing should be repeated with either an arterial or venous sample on the glucometer or sent to the main laboratory for testing. SPEC TYPE Capillary SUNQUEST 12/02/2019 7:54 PM EDT 12/02/2019 8:00 PM EDT Result [facility] Ana Jean-Baptiste MD LAB BLOOD ORDERABLE S Final Result Performing Organization Address [facility] Phone Number SUNQUEST * (ABNORMAL) Glucose Point of Care. (12/02/2019 5:01 PM EDT) POCT Glucose 144(H) 74 - 99 mg/dL SUNQUEST Comment: Accuracy of a glucose result obtained from a capillary whole blood specimen relies upon adequate, non-compromised capillary blood flow.If the capillary glucose result is not consistent with the patient's clinical signs and symptoms, glucose testing should be repeated with either an arterial or venous sample on the glucometer or sent to the main laboratory for testing. SPEC TYPE Capillary SUNQUEST 12/02/2019 5:01 PM EDT 12/02/2019 5:05 PM EDT [facility] LAB BLOOD ORDERABLE S Final Result Performing Organization Address [facility] de Phone Number SUNQUEST * (ABNORMAL) Glucose Point of Care. (12/02/2019 11:41 AM EDT) Pathologist [facility] POCT Glucose 195(H) 74 - 99 mg/dL SUNQUEST Comment: Accuracy of a glucose result obtained from a capillary whole blood specimen relies upon adequate, non-compromised capillary blood flow.If the capillary glucose result is not consistent with the patient's clinical signs and symptoms, glucose testing should be repeated with either an arterial or venous sample on the glucometer or sent to the main laboratory for testing. SPEC TYPE Capillary SUNQUEST 12/02/2019 11:4 1 AM EDT 12/02/2019 11:45 AM EDT [facility] BLOOD ORDERABLE S Final Result Performing Organization Address [facility] Phone Number SUNQUEST * (ABNORMAL) Glucose Point of Care. (12/02/2019 8:12 AM EDT) [facility] POCT Glucose 159(H) 74 - 99 mg/dL SUNQUEST Comment: Accuracy of a glucose result obtained from a capillary whole blood specimen relies upon adequate, non-compromised capillary blood flow.If the capillary glucose result is not consistent with the patient's clinical signs and symptoms, glucose testing should be repeated with either an arterial or venous sample on the glucometer or sent to the main laboratory for testing. SPEC TYPE Capillary SUNQUEST 12/02/2019 8:12 AM EDT 12/02/2019 8:15 AM EDT Result [facility] LAB BLOOD ORDERABLE S Final Result Performing Organization Address [facility] de Phone Number SUNQUEST * (ABNORMAL) Basic Metabolic Panel, Plasma (12/02/2019 2:50 AM EDT) Pathologist [facility] Glucose, Plasma 168(H) 74 - 99 mg/dL SUNQUEST BUN, Plasma 14 8 - 23 mg/dL SUNQUEST Creatinine, Plasma 0.59(L) 0.60 - 1.10 mg/dL SUNQUEST BUN/Creatinine Ratio 24(H) 8 - 20 SUNQUEST Sodium, Plasma 135(L) 136 - 145 mmol/L SUNQUEST Potassium, Plasma 4.2 3.7 - 4.8 mmol/L SUNQUEST Chloride, Plasma 94(L) 97 - 107 mmol/L SUNQUEST CO2, Plasma 34(H) 22 - 29 mmol/L SUNQUEST Anion Gap 7 6 - 16 mmol/L SUNQUEST Calcium, Plasma 9.0 8.9 - 10.2 mg/dL SUNQUEST eGFR >60 SEE NOTE SUNQUEST eGFR, if AFR/AM >60 >60 SEE NOTE SUNQUEST Comment: (NOTE) eGFR = estimated GFR; eGFR units = mL/min/1.73 sq meters Chronic Kidney Disease is considered if eGFR <60 mL/min/1.73 sq meters Kidney failure is considered if eGFR is <15 mL/min/1.73 sq meters. eGFR assumes steady state plasma creatinine concentration; not applicable if renal function is rapidly changing or patient is on dialysis. 12/02/2019 2:50 AM EDT 12/02/2019 3:00 AM EDT us Scott Russell MD LAB BLOOD ORDERABLES Final Resu lt SUNKAREN * (ABNORMAL) CBC W/O Differential (12/02/2019 2:50 AM EDT) WBC Count 9.65 3.7 - 10.3 k/uL SUNQUEST RBC Count 3.25(L) 3.9 - 5.2 M/uL SUNQUEST HGB 8.8(L) 11.2 - 15.7 g/dL SUNQUEST HCT 29.9(L) 34 - 45 % SUNQUEST Platelet Count 317 155 - 369 k/uL SUNQUEST MCV 92 79 - 98 fL SUNQUEST MCH 27.1 26 - 32 pg SUNQUEST MCHC 29.4(L) 30.7 - 35.5 g/dL SUNQUEST RDW 18.0(H) 12.4 - 14.9 % SUNQUEST MPV 9.4 8.8 - 12.5 fL SUNQUEST NRBC COUNT 0.0 0 % SUNQUEST 12/02/2019 2:50 AM EDT 12/02/2019 3:00 AM EDT Scott Russell MD LAB BLOOD ORDERABLES Final Resu lt Performing Organization Address [facility] Co de Phone Number SUNQUEST * (ABNORMAL) Glucose Point of Care. (12/01/2019 8:19 PM EDT) [facility] POCT Glucose 136(H) 74 - 99 mg/dL SUNQUEST Comment: Accuracy of a glucose result obtained from a capillary whole blood specimen relies upon adequate, non-compromised capillary blood flow.If the capillary glucose result is not consistent with the patient's clinical signs and symptoms, glucose testing should be repeated with either an arterial or venous sample on the glucometer or sent to the main laboratory for testing. SPEC TYPE Capillary SUNQUEST 12/01/2019 8:19 PM EDT 12/01/2019 8:45 PM EDT Ana Jean-Baptiste MD LAB BLOOD ORDERABLE S Final Result Performing Organization Address [facility] Co de Phone Number SUNQUEST * (ABNORMAL) CBC W/O Differential (12/01/2019 5:11 PM EDT) [facility] WBC Count 12.16(H) 3.7 - 10.3 k/uL SUNQUEST RBC Count 3.46(L) 3.9 - 5.2 M/uL SUNQUEST HGB 9.2(L) 11.2 - 15.7 g/dL SUNQUEST HCT 31.3(L) 34 - 45 % SUNQUEST Platelet Count 315 155 - 369 k/uL SUNQUEST MCV 91 79 - 98 fL SUNQUEST MCH 26.6 26 - 32 pg SUNQUEST MCHC 29.4(L) 30.7 - 35.5 g/dL SUNQUEST RDW 17.7(H) 12.4 - 14.9 % SUNQUEST MPV 9.6 8.8 - 12.5 fL SUNQUEST NRBC COUNT 0.0 0 % SUNQUEST 12/01/2019 5:11 PM EDT 12/01/2019 5:22 PM EDT Scott Russell MD LAB BLOOD ORDERABLES Final Resu lt Performing Organization Address [facility] Co de Phone Number SUNQUEST * (ABNORMAL) Glucose Point of Care. (12/01/2019 4:23 PM EDT) POCT Glucose 142(H) 74 - 99 mg/dL SUNQUEST Comment: Accuracy of a glucose result obtained from a capillary whole blood specimen relies upon adequate, non-compromised capillary blood flow.If the capillary glucose result is not consistent with the patient's clinical signs and symptoms, glucose testing should be repeated with either an arterial or venous sample on the glucometer or sent to the main laboratory for testing. SPEC TYPE Capillary SUNQUEST 12/01/2019 4:23 PM EDT 12/01/2019 4:25 PM EDT Ana Jean-Baptiste MD LAB BLOOD ORDERABLE S Final Result Performing Organization Address [facility] de Phone Number SUNQUEST * (ABNORMAL) Glucose Point of Care. (12/01/2019 1:18 PM EDT) POCT Glucose 158(H) 74 - 99 mg/dL SUNQUEST Comment: Accuracy of a glucose result obtained from a capillary whole blood specimen relies upon adequate, non-compromised capillary blood flow.If the capillary glucose result is not consistent with the patient's clinical signs and symptoms, glucose testing should be repeated with either an arterial or venous sample on the glucometer or sent to the main laboratory for testing. SPEC TYPE Capillary SUNQUEST 12/01/2019 1:18 PM EDT 12/01/2019 1:20 PM EDT Ana Jean-Baptiste MD LAB BLOOD ORDERABLE S Final Result Performing Organization Address [facility] Co de Phone Number SUNQUEST * CT Guided Drain Peritoneal or Retroperitoneal Fluid Collection (12/01/2019 12:32 PM EDT) Anatomical Region Laterality Modality Computed Tomogra phy Narrative 12/01/2019 3:17 PM EDT REQUESTING PHYSICIAN: DIANDRA BRADEN REASON FOR EXAMINATION/PROCEDURE: ?? * ??Left-sided perinephric abscess drainage EXAMINATION / PROCEDURE: CT RETRO/PERITONEAL DRAIN W/IG Dec 01 2019 - 12:32; ? CT-GUIDED PLACEMENT OF 10 GER[address] CHRISTOPHER INAGE CATHETER LEFT RENAL/RETROPERITONEAL ABSCESS CLINICAL INDICATION: Large left renal/retroperitoneal collection of fluid/gas consistent with abscess. Recently on Xarelto and fell. Infected hematoma. Universal Grinder Operator: Mark Simmons M.D., the attending interventional radiologist, performed the entire procedure. Secondary Health Plan Manager: None. Medications: IV conscious sedation with continuous, independent physiologic monitoring provided by a qualified healthcare professional us ing Versed 2 mg IV and Fentanyl 100 mcg IV. 1% Lidocaine SQ. Antibiotics: Not indicated for this procedure. Duration of Conscious Sedation: Time out: 1147 close out: 1212 Complications: No immediate complication. TECHNIQUE: After discussion o f risks and benefits, informed written consent was obtained. Appropriate time out was done to confirm patient identity and planned procedure. ?? Strict hand hygiene protocol was observed. All personnel in the room were attired in surgical hat and mask. The operators were in surgical hat, mask, sterile gloves, and sterile gowns. The site was prepped with 2% chlorhexidine for cutaneous antisepsis followed by sterile barrier draping. The patient was placed prone on the CT table and i nitial CT imaging performed. These images again demonstrate the very large collection of fluid and bubbles of gas in the region of the left kidney with extension throughout the left aspect of the retroperitoneum. This process is quite extensiv e, with inflammatory-like stranding adjacent to the spleen and a large amount of fluid noted throughout the left pararenal and perirenal spaces. The collection of fluid/gas results in very prominent mass effect on the left renal parenchyma (coul d result in page kidney, clinical correlation required). Although there are some contained bubbles of gas which suggests the possibility of infection, there is a significant component of high attenuation in the abnormal retroperitoneal fluid c ollection, consistent with hematoma. Infected hematoma is a possibility. Since the most recently performed diagnostic CT on 11/28/2019, there has been extension of the abnormality through the left quadratus lumborum/other left-sided back musculat ure and into the subcutaneous fat. The skin overlying the planned tract was prepped and draped in a sterile fashion and local anesthetic administered. The large/extensive left renal/retroperitoneal collection of fluid/gas was accessed under direct CT guidance utilizing an 18-gauge Martinez needle and position confirmed with multiple CT fluoroscopic images. Via the 18-gauge needle an 0.035 Amplatz wire was advanced into the collection and position again confirmed utilizing multiple C T fluoroscopic images. Over this wire, a 10 Pakistani biliary type drainage catheter was placed and the wire removed. The biliary catheter was chosen because this type of catheter provides a large number of additional sideholes, which will jus r bridge this large collection. For the time being, the sideholes were placed such that the distal pigtail loop is in the dependent most portion of the fluid collection, with other more proximal sideholes throughout the perinephric portion of ?? the fluid collection. At some point, the sideholes could be retracted into the more posterior aspect of the fluid collection/left paranephric space. The exact location/terminal point of the sideholes can be identified by the markedly radi opaque marker on the catheter noted on series 4, image 43. Measurements indicate that the catheter sideholes could be retracted into the paranephric component of the fluid collection by retracting the catheter approximately 9 cm. If follow-up CT ??suggests that retraction of the catheter is needed (for instance, if the paranephric fluid persists), retraction could be performed most optimally under CT guidance. 60 cc fluid was syringe aspirated and sent to the laboratory for microbiolo gic analysis. No gross evidence of purulence. No malodor detected. The fluid collection appears to primarily consist of old blood/hematoma. Follow-up CT demonstrated optimal positioning of the drain, for the time being. The drain was placed t o suction/accordion bag type drainage, and secured to the skin with 2-0 Silk suture and an occlusive dressing. The patient tolerated the procedure well and was transferred back to the recovery area in good condition. No immediate complication. Total DLP (Dose-Length Product): 2231.22 mGy.cm. Please note: The reported value represents the total of one or more individual components during the CT acquisition on this date and at this time, and as such, the same value may appear in more than one CT report depending on the interpreting/reporting physicians. COMPARISON: None. FINDINGS: As described above ?? IMPRESSION: Successful CT-guided placement of multi-sidehole, 10 Pakistani drainage catheter left-sided retroperitone al hematoma. Old, Alfred blood aspirated and sent to the laboratory for microbiologic analysis. Please see discussion above. CRITICAL RESULT: No. COMMUNICATION: Per this written report. ?? Verified by: MARK SIMMONS M.D. on Nov ??2019 ??3:15P Transcribed by: PSCB on Dec 01 2019 ??3:15P Dictated by: MARK SIMMONS M.D. on Dec 01 2019 ??1:00P Procedure Note Mark Simmons Neel - 12/31/2020 REQUESTING PHYSICIAN: DIANDRA BRADEN REASON FOR EXAMINATION/PROCEDURE: * Left-sided perinephric abscess drainage EXAMINATION / PROCEDURE: CT RETRO/PERITONEAL DRAIN W/IG Dec 01 2019 - 12:32; CT-GUIDED PLACEMENT OF 10 GERMAN CHRISTOPHER INAGE CATHETER LEFT RENAL/RETROPERITONEAL ABSCESS CLINICAL INDICATION: Large left renal/retroperitoneal collection of fluid/gas consistent with abscess. Recently on Xarelto and fell. Infected hematoma. Universal Grinder Operator: Mark Simmons M.D., the attending interventional radiologist, performed the entire procedure. Secondary Health Plan Manager: None. Medications: IV conscious sedation with continuous, independent physiologic monitoring provided by a qualified healthcare professional us ing Versed 2 mg IV and Fentanyl 100 mcg IV. 1% Lidocaine SQ. Antibiotics: Not indicated for this procedure. Duration of Conscious Sedation: Time out: 1147 close out: 1212 Complications: No immediate complication. TECHNIQUE: After discussion o f risks and benefits, informed written consent was obtained. Appropriate time out was done to confirm patient identity and planned procedure. Strict hand hygiene protocol was observed. All personnel in the room were attired in surgical hat and mask. The operators were in surgical hat, mask, sterile gloves, and sterile gowns. The site was prepped with 2% chlorhexidine for cutaneous antisepsis followed by sterile barrier draping. The patient was placed prone on the CT table and i nitial CT imaging performed. These images again demonstrate the very large collection of fluid and bubbles of gas in the region of the left kidney with extension throughout the left aspect of the retroperitoneum. This process is quite extensiv e, with inflammatory-like stranding adjacent to the spleen and a large amount of fluid noted throughout the left pararenal and perirenal spaces. The collection of fluid/gas results in very prominent mass effect on the left renal parenchyma (coul d result in page kidney, clinical correlation required). Although there are some contained bubbles of gas which suggests the possibility of infection, there is a significant component of high attenuation in the abnormal retroperitoneal fluid c ollection, consistent with hematoma. Infected hematoma is a possibility. Since the most recently performed diagnostic CT on 11/28/2019, there has been extension of the abnormality through the left quadratus lumborum/other left-sided back musculat ure and into the subcutaneousfat. The skin overlying the planned tract was prepped and draped in a sterile fashion and local anesthetic administered. The large/extensive left renal/retroperitoneal collection of fluid/gas was accessed under direct CT guidance utilizing an 18-gauge Martinez needle and position confirmed with multiple CT fluoroscopic images. Via the 18-gauge needle an 0.035 Amplatz wire was advanced into the collection and position again confirmed utilizing multiple C T fluoroscopic images. Over this wire, a 10 Pakistani biliary type drainage catheter was placed and the wire removed. The biliary catheter was chosen because this type of catheter provides a large number of additional sideholes, which will jus r bridge this large collection. For the time being, the sideholes were placed such that the distal pigtail loop is in the dependent most portion of the fluid collection, with other more proximal sideholes throughout the perinephric portion of the fluid collection. At some point, the sideholes could be retracted into the more posterior aspect of the fluid collection/left paranephric space. The exact location/terminal point of the sideholes can be identified by the markedly radi opaque marker on the catheter noted on series 4, image 43. Measurements indicate that the catheter sideholes could be retracted into the paranephric component of the fluid collection by retracting the catheter approximately 9 cm. If follow-up CT suggests that retraction of the catheter is needed (for instance, if the paranephric fluid persists), retraction could be performed most optimally under CT guidance. 60 cc fluid was syringe aspirated and sent to the laboratory for microbiolo gic analysis. No gross evidence of purulence. No malodor detected. The fluid collection appears to primarily consist of old blood/hematoma. Follow-up CT demonstrated optimal positioning of the drain, for the time being. The drain was placed t o suction/accordion bag type drainage, and secured to the skin with 2-0 Silk suture and an occlusive dressing. The patient tolerated the procedure well and was transferred back to the recovery area in good condition. No immediate complication. Total DLP (Dose-Length Product): 2231.22 mGy.cm. Please note: The reported value represents the total of one or more individual components during the CT acquisition on this date and at this time, and as such, the same value may appear in more than one CT report depending on the interpreting/reporting physicians. COMPARISON: None. FINDINGS: As described above IMPRESSION: Successful CT-guided placement of multi-sidehole, 10 Pakistani drainage catheter left-sided retroperitone al hematoma. Old, Alfred blood aspirated and sent to the laboratory for microbiologic analysis. Please see discussion above. CRITICAL RESULT: No. COMMUNICATION: Per this written report. Verified by: MARK SIMMONS M.D. on Dec 01 2019 3:15P Transcribed by: PSCB on Dec 01 2019 3:15P Dictated by: MARK SIMMONS M.D. on Dec 01 2019 1:00P us Diandra Braden MD IMG CT PROCEDURES Final R esult * Mycological Culture, Sterile Body Fluid (NOT CSF) and STEVE (12/01/2019 12:21 PM EDT) 12/01/2019 12:2 1 PM EDT 12/01/2019 1:13 PM EDT Narrative SUNQUEST - 11/02/2020 11:35 AM EST SQ ACC. NUMBER ?[id number] SPECIMEN DESCRIPTION: ?ABSCESS PARANEPHRIC SPECIAL REQUESTS: ?NONE SPECIMEN CONTAINER INFO: ? ORDER PROCESSED. CULTURE: ? NO FUNGAL GROWTH AT 3 WEEKS REPORT STATUS: ? FINAL 12/23/2019 us Scott Russell MD [facility] Final Result Performing Organization Address [facility] de Phone Number SUNQUEST * STEVE, FLUID DC (12/01/2019 12:21 PM EDT) 12/01/2019 12:2 1 PM EDT 12/01/2019 1:13 PM EDT Narrative SUNQUEST - 11/02/2020 11:35 AM EST SQ ACC. NUMBER ?[id number] SPECIMEN DESCRIPTION: ?ABSCESS PARANEPHRIC SPECIAL REQUESTS: ?NONE STEVE FLUID ?NO FUNGAL ELEMENTS OBSERVED REPORT STATUS: ? FINAL [id number] us Scott Russell MD LAB BLOOD ORDERABLES Final Resu lt Performing Organization Address [facility] de Phone Number SUNQUEST * AFB stain (12/01/2019 12:21 PM EDT) 12/01/2019 12:2 1 PM EDT 12/01/2019 1:13 PM EDT Narrative SUNQUEST - 11/02/2020 11:35 AM EST SQ ACC. NUMBER ?[id number] SPECIMEN DESCRIPTION: ?ABSCESS PARANEPHRIC SPECIAL REQUESTS: ?NONE ACID FAST STAIN ?NO AFB SEEN REPORT STATUS: ? FINAL [id number] us Scott Russell MD LAB MICROBIOLOGY - GENERAL [facility] Final Result Performing Organization Address [facility] de Phone Number SUNQUEST * AFB Culture, Non Respiratory Source and Acid Fast Stain (12/01/2019 12:21 PM EDT) 12/01/2019 12:2 1 PM EDT 12/01/2019 1:13 PM EDT Narrative SUNQUEST - 11/02/2020 11:35 AM EST SQ ACC. NUMBER ?[id number] SPECIMEN DESCRIPTION: ?ABSCESS PARANEPHRIC SPECIAL REQUESTS: ?NONE CULTURE: ? NO ACID FAST BACILLI ISOLATED AT 6 WEEKS REPORT STATUS: ? FINAL [id number] Scott Russell MD LAB MICROBIOLOGY - GENERAL ORDE [employer] Final Result Performing Organization Address [facility] de Phone Number SUNQUEST * Abscess Gram Stain (12/01/2019 12:21 PM EDT) 12/01/2019 12:2 1 PM EDT 12/01/2019 1:13 PM EDT Narrative SUNQUEST - 11/02/2020 11:35 AM EST SQ ACC. NUMBER ?[id number] SPECIMEN DESCRIPTION: ?ABSCESS PARANEPHRIC SPECIAL REQUESTS: ?NONE GRAM STAIN ? NUMEROUS POLYMORPHONUCLEAR WHITE BLOOD CELLS ? NO ORGANISMS SEEN REPORT STATUS: ? FINAL [id number] Scott Russell MD LAB MICROBIOLOGY - GENERAL ORDE [employer] Final Result Performing Organization Address [facility] de Phone Number SUNQUEST * Suceptibility Each (12/01/2019 12:21 PM EDT) 12/01/2019 12:2 1 PM EDT 12/01/2019 1:13 PM EDT Narrative SUNQUEST - 11/02/2020 11:35 AM EST SQ ACC. NUMBER ?[id number] SPECIMEN DESCRIPTION: ?ABSCESS PARANEPHRIC SPECIAL REQUESTS: ?NONE QUANTITATION: ?UNABLE TO QUANTITATE DUE TO INTERFERRING ?SUBSTANCE. CULTURE: ? BIOTYPE 1 ESCHERICHIA COLI ? BIOTYPE 2 ESCHERICHIA COLI REPORT STATUS: ? FINAL [id number] SQ ACC. NUMBER ?[id number] ORGANISM ? BIOTYPE 2 ESCHERICHIA COLI METHOD ? RONI (mcg/mL) AMIKACIN ? <=8 SUSCEPTIBLE AMPICILLIN ? >16 RESISTANT AMPICILLIN/SULBACTAM ? 16/8 INTERMEDIATE AZTREONAM ?<=2 SUSCEPTIBLE CEFAZOLIN ?2 SUSCEPTIBLE CEFEPIME ? <=1 SUSCEPTIBLE CEFTRIAXONE ?<=1 SUSCEPTIBLE GENTAMICIN ? <=2 SUSCEPTIBLE LEVOFLOXACIN ? <=1 SUSCEPTIBLE MEROPENEM ?<=0.5 SUSCEPTIBLE PIPERACILLIN/TAZOBACTAM ?4/4 SUSCEPTIBLE TETRACYCLINE ? >8 RESISTANT TOBRAMYCIN ? <=2 SUSCEPTIBLE TRIMETHOPRIM/SULFAMETHOXAZOLE >2/38 RESISTANT ERTAPENEM ?<=0.25 SUSCEPTIBLE SQ ACC. NUMBER ?[id number] ORGANISM ? BIOTYPE 1 ESCHERICHIA COLI METHOD ? Aerobic Identificaion Billing Info Only Isolate Identified by MALDI TOF ISOLATE IDENTIFIED ? This isolate has been identified using the FDA ?Approved MALDI Biotyper CA System. SQ ACC. NUMBER ?[id number] ORGANISM ? BIOTYPE 2 ESCHERICHIA COLI METHOD ? Aerobic Identificaion Billing Info Only Isolate Identified by MALDI TOF ISOLATE IDENTIFIED ? This isolate has been identified using the FDA ?Approved MALDI Biotyper CA System. SQ ACC. NUMBER ?[id number] ORGANISM ? BIOTYPE 1 ESCHERICHIA COLI METHOD ? RONI (mcg/mL) AMIKACIN ? <=8 SUSCEPTIBLE AMPICILLIN ? >16 RESISTANT AMPICILLIN/SULBACTAM ? 16/8 INTERMEDIATE AZTREONAM ?<=2 SUSCEPTIBLE CEFAZOLIN ?2 SUSCEPTIBLE CEFEPIME ? <=1 SUSCEPTIBLE CEFTRIAXONE ?<=1 SUSCEPTIBLE GENTAMICIN ? <=2 SUSCEPTIBLE LEVOFLOXACIN ? <=1 SUSCEPTIBLE MEROPENEM ?<=0.5 SUSCEPTIBLE PIPERACILLIN/TAZOBACTAM ?4/4 SUSCEPTIBLE TETRACYCLINE ? >8 RESISTANT TOBRAMYCIN ? <=2 SUSCEPTIBLE TRIMETHOPRIM/SULFAMETHOXAZOLE >2/38 RESISTANT ERTAPENEM ?<=0.25 SUSCEPTIBLE Scott Russell MD LAB MICROBIOLOGY - GENERAL [facility] Final Result SUNQUEST * (ABNORMAL) Glucose Point of Care. (12/01/2019 9:02 AM EDT) [facility] POCT Glucose 175(H) 74 - 99 mg/dL SUNQUEST Comment: Accuracy of a glucose result obtained from a capillary whole blood specimen relies upon adequate, non-compromised capillary blood flow.If the capillary glucose result is not consistent with the patient's clinical signs and symptoms, glucose testing should be repeated with either an arterial or venous sample on the glucometer or sent to the main laboratory for testing. SPEC TYPE Capillary SUNQUEST 12/01/2019 9:02 AM EDT 12/01/2019 9:05 AM EDT Ana Jean-Baptiste MD LAB BLOOD ORDERABLE S Final Result Performing Organization Address [facility] de Phone Number SUNQUEST * (ABNORMAL) Glucose Point of Care. (12/01/2019 7:29 AM EDT) POCT Glucose 141(H) 74 - 99 mg/dL SUNQUEST Comment: Accuracy of a glucose result obtained from a capillary whole blood specimen relies upon adequate, non-compromised capillary blood flow.If the capillary glucose result is not consistent with the patient's clinical signs and symptoms, glucose testing should be repeated with either an arterial or venous sample on the glucometer or sent to the main laboratory for testing. SPEC TYPE Capillary SUNQUEST 12/01/2019 7:29 AM EDT 12/01/2019 2:55 PM EDT Ana Jean-Baptiste MD LAB BLOOD ORDERABLE S Final Result Performing Organization Address [facility] de Phone Number SUNQUEST * (ABNORMAL) Basic Metabolic Panel, Plasma (12/01/2019 3:42 AM EDT) Glucose, Plasma 151(H) 74 - 99 mg/dL SUNQUEST BUN, Plasma 17 8 - 23 mg/dL SUNQUEST Creatinine, Plasma 0.64 0.60 - 1.10 mg/dL SUNQUEST BUN/Creatinine Ratio 27(H) 8 - 20 SUNQUEST Sodium, Plasma 136 136 - 145 mmol/L SUNQUEST Potassium, Plasma 4.2 3.7 - 4.8 mmol/L SUNQUEST Chloride, Plasma 95(L) 97 - 107 mmol/L SUNQUEST CO2, Plasma 29 22 - 29 mmol/L SUNQUEST Anion Gap 12 6 - 16 mmol/L SUNQUEST Calcium, Plasma 9.4 8.9 - 10.2 mg/dL SUNQUEST eGFR >60 SEE NOTE SUNQUEST eGFR, if AFR/AM >60 >60 SEE NOTE SUNQUEST Comment: (NOTE) eGFR = estimated GFR; eGFR units = mL/min/1.73 sq meters Chronic Kidney Disease is considered if eGFR <60 mL/min/1.73 sq meters Kidney failure is considered if eGFR is <15 mL/min/1.73 sq meters. eGFR assumes steady state plasma creatinine concentration; not applicable if renal function is rapidly changing or patient is on dialysis. 12/01/2019 3:42 AM EDT 12/01/2019 5:07 AM EDT Scott Russell MD LAB BLOOD ORDERABLES Final Resu lt SUNQUEST * (ABNORMAL) CBC W/O Differential (12/01/2019 3:42 AM EDT) WBC Count 12.25(H) 3.7 - 10.3 k/uL SUNQUEST RBC Count 3.79(L) 3.9 - 5.2 M/uL SUNQUEST HGB 10.2(L) 11.2 - 15.7 g/dL SUNQUEST HCT 35.1 34 - 45 % SUNQUEST Platelet Count 344 155 - 369 k/uL SUNQUEST MCV 93 79 - 98 fL SUNQUEST MCH 26.9 26 - 32 pg SUNQUEST MCHC 29.1(L) 30.7 - 35.5 g/dL SUNQUEST RDW 18.0(H) 12.4 - 14.9 % SUNQUEST MPV 9.9 8.8 - 12.5 fL SUNQUEST NRBC COUNT 0.0 0 % SUNQUEST 12/01/2019 3:42 AM EDT 12/01/2019 5:05 AM EDT Scott Russell MD LAB BLOOD ORDERABLES Final Resu lt SUNQUEST * (ABNORMAL) WBC Differential (12/01/2019 3:42 AM EDT) Differential Type AUTOMATED SUNQUEST Neutrophils % 75 % SUNQUEST Lymphocytes 13 % SUNQUEST Monocytes 7 % SUNQUEST Eosinophils 2 % SUNQUEST Basophils 0 % SUNQUEST Immature Granulocytes % 3 % SUNQUEST ABS Neutrophil 9.13(H) 1.6 - 6.1 k/uL SUNQUEST ABS Lymphocyte 1.54 1.2 - 3.9 k/uL SUNQUEST ABS Monocyte 0.87 0.3 - 0.9 k/uL SUNQUEST ABS Eosinophil 0.30 0.0 - 0.5 k/uL SUNQUEST ABS Basophil 0.05 0.0 - 0.1 k/uL SUNQUEST Immature Granulocyte Absolute 0.36(H) 0 - 0.06 k/uL SUNQUEST 12/01/2019 3:42 AM EDT 12/01/2019 5:05 AM EDT Narrative SUNQUEST - 12/01/2019 5:12 AM EDT Therapeutic decision making should be based on absolute values, rather than percentages. Therapeutic decision making should be based on absolute values, rather than percentages. Therapeutic decision making should be based on absolute values, rather than percentages. Therapeutic decision making should be based on absolute values, rather than percentages. us Scott Russell MD LAB BLOOD ORDERABLES Final Resu lt SUNQUEST * Cytology (12/01/2019 12:00 AM EDT) 12/01/2019 12/01/2019 2:5 2 PM EDT Narrative SUNQUEST - 12/02/2019 11:49 AM EDT [facility] ?MR #: [id number] [facility] ?[address] [place] [place], [place] ??[id number] ?1950 (Age: 69) ?? FW ?Collect Date: 12/01/2019 00:00 ?Receipt Date: 12/01/2019 14:52 ?Page 1 DEPARTMENT OF PATHOLOGY AND ??LABORATORY MEDICINE CYTOPATHOLOGY REPORT ? Email: [email or web address] ?[phone] ? ATTENDING MD/Practitioner: ??H.Gerardo, MD ? Service: [id number] ? Location: A09J ? Reported: 12/02/2019 11:49 ? Collected: 12/01/2019 00:00 DIAGNOSIS A. ??PERITONEAL FLUID: (CONCENTRATE AND CELL BLOCK) -ABUNDANT ACUTE INFLAMMATION -NEGATIVE FOR MALIGNANCY ? Electronically Signed Out ? Bryant Znuiga, RAKAN (ASCP) Elvia Muñiz MD PROCEDURES/ADDENDA GROSS DESCRIPTION: 30 ml's bloody fluid CLINICAL INFORMATION: CLINICAL DIAGNOSIS Infected retroperitoneal hematoma SPECIMEN DESCRIPTION: A: ??PERITONEAL FLUID ? THIN PREP PROCESS CELLULAR ENHANCEMENT, CELL BLOCK F ICD: K65.0 ? Generalized (acute) peritonitis F: A; 92710, 30400, 64971 SNOMED CODES: A; [id number] A resident has participated in this service. ??A pathologist has performed and is responsible for the reported pathologic evaluation. Scott Russell MD LAB PATHOLOGY ORDERABLES Final Result Performing Organization Address City/[facility]/ZIP Co de Phone Number SUNQUEST * (ABNORMAL) Glucose Point of Care. (11/30/2019 8:51 PM EDT) POCT Glucose 123(H) 74 - 99 mg/dL SUNQUEST Comment: Accuracy of a glucose result obtained from a capillary whole blood specimen relies upon adequate, non-compromised capillary blood flow.If the capillary glucose result is not consistent with the patient's clinical signs and symptoms, glucose testing should be repeated with either an arterial or venous sample on the glucometer or sent to the main laboratory for testing. SPEC TYPE Venous SUNQUEST 11/30/2019 8:51 PM EDT 11/30/2019 8:55 PM EDT Ana Jean-Baptiste MD LAB BLOOD ORDERABLE S Final Result Performing Organization Address City/[facility] Co de Phone Number SUNQUEST * XR Abdomen 1 View (11/30/2019 6:38 PM EDT) Anatomical Region Laterality Modality Body Radiographic Juanita ging Narrative 11/30/2019 7:23 PM EDT REQUESTING PHYSICIAN: SCOTT RUSSELL REASON FOR EXAMINATION/PROCEDURE: RAD PDP:Y ??* ??constipation possible ileus EXAMINATION / PROCEDURE: ABDOMEN 1 VIEW PORTABLE Nov 30 2019 - 18:38; ? CLINICAL INDICATION: RAD PDP:Y ??* ??constipation p ossible ileus TECHNIQUE: ABDOMEN 1 VIEW PORTABLE COMPARISON: CT abdomen November 23, 2019 FINDINGS: No pathologic bowel dilatation. Scattered stool throughout the colon. No free air is noted. No pneumatosis or portal venous gas. ?? IMPRES ELSY: No pathologic bowel dilatation. Scattered stool throughout the colon. CRITICAL RESULT: ?? No. COMMUNICATION: Per this written report. ?? Verified by: OREN FRANKEL M.D. on Nov 30 2019 ??7:22P Transcribed by: PUMA on Nov 30 2019 ??7:22P Dictated by: OREN FRANKEL M.D. on Nov 30 2019 ??7:21P Procedure Note Oren Frankel - 12/31/2020 REQUESTING PHYSICIAN: SCOTT RUSSELL REASON FOR EXAMINATION/PROCEDURE: RAD PDP:Y * constipation possible ileus EXAMINATION / PROCEDURE: ABDOMEN 1 VIEW PORTABLE Nov 30 2019 - 18:38; CLINICAL INDICATION: RAD PDP:Y * constipation p ossible ileus TECHNIQUE: ABDOMEN 1 VIEW PORTABLE COMPARISON: CT abdomen November 23, 2019 FINDINGS: No pathologic bowel dilatation. Scattered stool throughout the colon. No free air is noted. No pneumatosis or portal venous gas. IMPRES ELSY: No pathologic bowel dilatation. Scattered stool throughout the colon. CRITICAL RESULT: No. COMMUNICATION: Per this written report. Verified by: OREN FRANKEL M.D. on Nov 30 2019 7:22P Transcribed by: PSCB on Nov 30 2019 7:22P Dictated by: OREN FRANKEL M.D. on Nov 30 2019 7:21P us Scott Russell MD IMG XR PROCEDURES Final Result * (ABNORMAL) Glucose Point of Care. (11/30/2019 4:27 PM EDT) POCT Glucose 140(H) 74 - 99 mg/dL SUNQUEST Comment: Accuracy of a glucose result obtained from a capillary whole blood specimen relies upon adequate, non-compromised capillary blood flow.If the capillary glucose result is not consistent with the patient's clinical signs and symptoms, glucose testing should be repeated with either an arterial or venous sample on the glucometer or sent to the main laboratory for testing. SPEC TYPE Capillary SUNQUEST 11/30/2019 4:27 PM EDT 11/30/2019 4:30 PM EDT Ana Jean-Baptiste MD LAB BLOOD ORDERABLE S Final Result Performing Organization Address [facility] Phone Number SUNQUEST * (ABNORMAL) Glucose Point of Care. (11/30/2019 2:16 PM EDT) [facility] POCT Glucose 176(H) 74 - 99 mg/dL SUNQUEST Comment: Accuracy of a glucose result obtained from a capillary whole blood specimen relies upon adequate, non-compromised capillary blood flow.If the capillary glucose result is not consistent with the patient's clinical signs and symptoms, glucose testing should be repeated with either an arterial or venous sample on the glucometer or sent to the main laboratory for testing. SPEC TYPE Capillary SUNQUEST 11/30/2019 2:16 PM EDT 11/30/2019 3:50 PM EDT Ana Jean-Baptiste MD LAB BLOOD ORDERABLE S Final Result Performing Organization Address City/[facility] de Phone Number SUNQUEST * (ABNORMAL) Glucose Point of Care. (11/30/2019 11:54 AM EDT) [facility] POCT Glucose 209(H) 74 - 99 mg/dL SUNQUEST Comment: Accuracy of a glucose result obtained from a capillary whole blood specimen relies upon adequate, non-compromised capillary blood flow.If the capillary glucose result is not consistent with the patient's clinical signs and symptoms, glucose testing should be repeated with either an arterial or venous sample on the glucometer or sent to the main laboratory for testing. SPEC TYPE Capillary SUNQUEST 11/30/2019 11:5 4 AM EDT 11/30/2019 12:05 PM EDT Ana Jean-Baptiste MD LAB BLOOD ORDERABLE S Final Result Performing Organization Address [facility] de Phone Number SUNQUEST * (ABNORMAL) Glucose Point of Care. (11/30/2019 7:42 AM EDT) Pathologist [facility] POCT Glucose 171(H) 74 - 99 mg/dL SUNQUEST Comment: Accuracy of a glucose result obtained from a capillary whole blood specimen relies upon adequate, non-compromised capillary blood flow.If the capillary glucose result is not consistent with the patient's clinical signs and symptoms, glucose testing should be repeated with either an arterial or venous sample on the glucometer or sent to the main laboratory for testing. SPEC TYPE Capillary SUNQUEST 11/30/2019 7:42 AM EDT 11/30/2019 11:50 AM EDT Ana Jean-Baptiste MD LAB BLOOD ORDERABLE S Final Result Performing Organization Address [facility] de Phone Number SUNQUEST * (ABNORMAL) Procalcitonin, Plasma (11/30/2019 4:43 AM EDT) [facility] Procalcitonin, Plasma 0.32(H) <0.09 ng/mL SUNQUEST Comment: Procalcitonin concentrations in healthy individuals are <0.09 ng/mL. Published data support the following interpretive risk assessment: An elevated procalcitonin result does not always indicate sepsis. Various non-infectious conditions are known to increase procalcitonin. Results should be considered in the context of clinical symptoms and other laboratory tests. Procalcitonin >2.0 ng/mL: Concentrations >2.0 ng/mL on the first day of ICU admission are associated with a higher risk of progression to severe sepsis and/or septic shock. The change in PCT over time may help predict 28 day mortality risk. Please consult [email or web address] for more information. Test performed at [facility]. 11/30/2019 4:43 AM EDT 11/30/2019 5:00 AM EDT Scott Russell MD LAB BLOOD ORDERABLES Final Resu lt Performing Organization Address [facility] Co de Phone Number SUNQUEST * (ABNORMAL) C-Reactive Protein, Plasma (11/30/2019 4:43 AM EDT) CRP 9.5(H) 0 - 0.9 mg/dL SUNQUEST Comment: This CRP test is appropriate for assessment of infection, systemic inflammation or tissue injury. It is not appropriate for cardiovascular disease risk assessment which requires a more sensitive assay (high sensitivity CRP). 11/30/2019 4:43 AM EDT 11/30/2019 5:00 AM EDT Scott Russell MD LAB BLOOD ORDERABLES Final Resu lt Performing Organization Address [facility] de Phone Number SUNQUEST * (ABNORMAL) Basic Metabolic Panel, Plasma (11/30/2019 4:43 AM EDT) Glucose, Plasma 182(H) 74 - 99 mg/dL SUNQUEST BUN, Plasma 22 8 - 23 mg/dL SUNQUEST Creatinine, Plasma 0.64 0.60 - 1.10 mg/dL SUNQUEST BUN/Creatinine Ratio 34(H) 8 - 20 SUNQUEST Sodium, Plasma 137 136 - 145 mmol/L SUNQUEST Potassium, Plasma 4.0 3.7 - 4.8 mmol/L SUNQUEST Chloride, Plasma 96(L) 97 - 107 mmol/L SUNQUEST CO2, Plasma 31(H) 22 - 29 mmol/L SUNQUEST Anion Gap 10 6 - 16 mmol/L SUNQUEST Calcium, Plasma 9.2 8.9 - 10.2 mg/dL SUNQUEST eGFR >60 SEE NOTE SUNQUEST eGFR, if AFR/AM >60 >60 SEE NOTE SUNQUEST Comment: (NOTE) eGFR = estimated GFR; eGFR units = mL/min/1.73 sq meters Chronic Kidney Disease is considered if eGFR <60 mL/min/1.73 sq meters Kidney failure is considered if eGFR is <15 mL/min/1.73 sq meters. eGFR assumes steady state plasma creatinine concentration; not applicable if renal function is rapidly changing or patient is on dialysis. 11/30/2019 4:43 AM EDT 11/30/2019 5:00 AM EDT Scott Russell MD LAB BLOOD ORDERABLES Final Resu lt SUNQUEST * (ABNORMAL) CBC W/O Differential (11/30/2019 4:43 AM EDT) WBC Count 13.94(H) 3.7 - 10.3 k/uL SUNQUEST RBC Count 3.39(L) 3.9 - 5.2 M/uL SUNQUEST HGB 9.0(L) 11.2 - 15.7 g/dL SUNQUEST HCT 31.3(L) 34 - 45 % SUNQUEST Platelet Count 345 155 - 369 k/uL SUNQUEST MCV 92 79 - 98 fL SUNQUEST MCH 26.5 26 - 32 pg SUNQUEST MCHC 28.8(L) 30.7 - 35.5 g/dL SUNQUEST RDW 17.3(H) 12.4 - 14.9 % SUNQUEST MPV 9.6 8.8 - 12.5 fL SUNQUEST NRBC COUNT 0.0 0 % SUNQUEST 11/30/2019 4:43 AM EDT 11/30/2019 5:00 AM EDT Scott Russell MD LAB BLOOD ORDERABLES Final Resu lt SUNQUEST * (ABNORMAL) WBC Differential (11/30/2019 4:43 AM EDT) Differential Type AUTOMATED SUNQUEST Neutrophils % 75 % SUNQUEST Lymphocytes 14 % SUNQUEST Monocytes 5 % SUNQUEST Eosinophils 2 % SUNQUEST Basophils 0 % SUNQUEST Immature Granulocytes % 4 % SUNQUEST ABS Neutrophil 10.36(H) 1.6 - 6.1 k/uL SUNQUEST ABS Lymphocyte 1.96 1.2 - 3.9 k/uL SUNQUEST ABS Monocyte 0.73 0.3 - 0.9 k/uL SUNQUEST ABS Eosinophil 0.27 0.0 - 0.5 k/uL SUNQUEST ABS Basophil 0.04 0.0 - 0.1 k/uL SUNQUEST Immature Granulocyte Absolute 0.58(H) 0 - 0.06 k/uL SUNQUEST 11/30/2019 4:43 AM EDT 11/30/2019 5:00 AM EDT Narrative SUNQUEST - 11/30/2019 5:15 AM EDT Therapeutic decision making should be based on absolute values, rather than percentages. Therapeutic decision making should be based on absolute values, rather than percentages. Therapeutic decision making should be based on absolute values, rather than percentages. Therapeutic decision making should be based on absolute values, rather than percentages. Scott Russell MD LAB BLOOD ORDERABLES Final Resu lt Performing Organization Address [facility] Co de Phone Number SUNQUEST * (ABNORMAL) Glucose Point of Care. (11/29/2019 8:36 PM EDT) POCT Glucose 136(H) 74 - 99 mg/dL SUNQUEST Comment: Accuracy of a glucose result obtained from a capillary whole blood specimen relies upon adequate, non-compromised capillary blood flow.If the capillary glucose result is not consistent with the patient's clinical signs and symptoms, glucose testing should be repeated with either an arterial or venous sample on the glucometer or sent to the main laboratory for testing. SPEC TYPE Venous SUNQUEST 11/29/2019 8:36 PM EDT 11/29/2019 8:40 PM EDT Ana Jean-Baptiste MD LAB BLOOD ORDERABLE S Final Result Performing Organization Address [facility] Co de Phone Number SUNQUEST * (ABNORMAL) Glucose Point of Care. (11/29/2019 4:41 PM EDT) POCT Glucose 242(H) 74 - 99 mg/dL SUNQUEST Comment: Accuracy of a glucose result obtained from a capillary whole blood specimen relies upon adequate, non-compromised capillary blood flow.If the capillary glucose result is not consistent with the patient's clinical signs and symptoms, glucose testing should be repeated with either an arterial or venous sample on the glucometer or sent to the main laboratory for testing. SPEC TYPE Capillary SUNQUEST 11/29/2019 4:41 PM EDT 11/29/2019 4:45 PM EDT Result [facility] Ana Jean-Baptiste MD LAB BLOOD ORDERABLE S Final Result Performing Organization Address City/[facility] Co de Phone Number SUNQUEST * (ABNORMAL) Glucose Point of Care. (11/29/2019 11:51 AM EDT) [facility] POCT Glucose 271(H) 74 - 99 mg/dL SUNQUEST Comment: Accuracy of a glucose result obtained from a capillary whole blood specimen relies upon adequate, non-compromised capillary blood flow.If the capillary glucose result is not consistent with the patient's clinical signs and symptoms, glucose testing should be repeated with either an arterial or venous sample on the glucometer or sent to the main laboratory for testing. SPEC TYPE Capillary SUNQUEST 11/29/2019 11:5 1 AM EDT 11/29/2019 11:55 AM EDT Result [facility] Ana Jean-Baptiste MD LAB BLOOD ORDERABLE S Final Result Performing Organization Address [facility] de Phone Number SUNQUEST * (ABNORMAL) Glucose Point of Care. (11/29/2019 7:03 AM EDT) [facility] POCT Glucose 176(H) 74 - 99 mg/dL SUNQUEST Comment: Accuracy of a glucose result obtained from a capillary whole blood specimen relies upon adequate, non-compromised capillary blood flow.If the capillary glucose result is not consistent with the patient's clinical signs and symptoms, glucose testing should be repeated with either an arterial or venous sample on the glucometer or sent to the main laboratory for testing. SPEC TYPE Capillary SUNQUEST 11/29/2019 7:03 AM EDT 11/29/2019 7:35 AM EDT [facility] LAB BLOOD ORDERABLE S Final Result Performing Organization Address City/[facility] Co de Phone Number SUNQUEST * (ABNORMAL) Phosphorus, Plasma (11/29/2019 4:19 AM EDT) Phosphorus, Plasma 2.0(L) 2.5 - 4.5 mg/dL SUNQUEST 11/29/2019 4:19 AM EDT 11/29/2019 4:34 AM EDT Ben Klein MD LAB BLOOD ORDERABL ES Final Result Performing Organization Address [facility] Co de Phone Number SUNQUEST * (ABNORMAL) Magnesium, Plasma (11/29/2019 4:19 AM EDT) Magnesium, Plasma 1.6(L) 1.9 - 2.4 mg/dL SUNQUEST 11/29/2019 4:19 AM EDT 11/29/2019 4:34 AM EDT Ben Klein MD LAB BLOOD ORDERABL ES Final Result Performing Organization Address [facility] de Phone Number SUNQUEST * (ABNORMAL) Basic Metabolic Panel, Plasma (11/29/2019 4:19 AM EDT) Glucose, Plasma 189(H) 74 - 99 mg/dL SUNQUEST BUN, Plasma 22 8 - 23 mg/dL SUNQUEST Creatinine, Plasma 0.66 0.60 - 1.10 mg/dL SUNQUEST BUN/Creatinine Ratio 33(H) 8 - 20 SUNQUEST Sodium, Plasma 139 136 - 145 mmol/L SUNQUEST Potassium, Plasma 4.3 3.7 - 4.8 mmol/L SUNQUEST Chloride, Plasma 97 97 - 107 mmol/L SUNQUEST CO2, Plasma 32(H) 22 - 29 mmol/L SUNQUEST Anion Gap 10 6 - 16 mmol/L SUNQUEST Calcium, Plasma 9.1 8.9 - 10.2 mg/dL SUNQUEST eGFR >60 SEE NOTE SUNQUEST eGFR, if AFR/AM >60 >60 SEE NOTE SUNQUEST Comment: (NOTE) eGFR = estimated GFR; eGFR units = mL/min/1.73 sq meters Chronic Kidney Disease is considered if eGFR <60 mL/min/1.73 sq meters Kidney failure is considered if eGFR is <15 mL/min/1.73 sq meters. eGFR assumes steady state plasma creatinine concentration; not applicable if renal function is rapidly changing or patient is on dialysis. 11/29/2019 4:19 AM EDT 11/29/2019 4:34 AM EDT Ben Klein MD LAB BLOOD ORDERABL ES Final Result Performing Organization Address City/[facility]/ZIP Co de Phone Number SUNQUEST * (ABNORMAL) CBC W/O Differential (11/29/2019 4:19 AM EDT) WBC Count 16.00(H) 3.7 - 10.3 k/uL SUNQUEST RBC Count 3.40(L) 3.9 - 5.2 M/uL SUNQUEST HGB 9.1(L) 11.2 - 15.7 g/dL SUNQUEST HCT 30.6(L) 34 - 45 % SUNQUEST Platelet Count 367 155 - 369 k/uL SUNQUEST MCV 90 79 - 98 fL SUNQUEST MCH 26.8 26 - 32 pg SUNQUEST MCHC 29.7(L) 30.7 - 35.5 g/dL SUNQUEST RDW 17.1(H) 12.4 - 14.9 % SUNQUEST MPV 9.4 8.8 - 12.5 fL SUNQUEST NRBC COUNT 0.4(H) 0 % SUNQUEST 11/29/2019 4:19 AM EDT 11/29/2019 4:34 AM EDT Ben Klein MD LAB BLOOD ORDERABL ES Final Result SUNQUEST * (ABNORMAL) WBC Differential (11/29/2019 4:19 AM EDT) Differential Type AUTOMATED SUNQUEST Neutrophils % 79 % SUNQUEST Lymphocytes 11 % SUNQUEST Monocytes 4 % SUNQUEST Eosinophils 1 % SUNQUEST Basophils 0 % SUNQUEST Immature Granulocytes % 5 % SUNQUEST ABS Neutrophil 12.53(H) 1.6 - 6.1 k/uL SUNQUEST ABS Lymphocyte 1.77 1.2 - 3.9 k/uL SUNQUEST ABS Monocyte 0.64 0.3 - 0.9 k/uL SUNQUEST ABS Eosinophil 0.20 0.0 - 0.5 k/uL SUNQUEST ABS Basophil 0.05 0.0 - 0.1 k/uL SUNQUEST Immature Granulocyte Absolute 0.81(H) 0 - 0.06 k/uL SUNQUEST 11/29/2019 4:19 AM EDT 11/29/2019 4:34 AM EDT Narrative SUNQUEST - 11/29/2019 4:49 AM EDT Therapeutic decision making should be based on absolute values, rather than percentages. Therapeutic decision making should be based on absolute values, rather than percentages. Therapeutic decision making should be based on absolute values, rather than percentages. Therapeutic decision making should be based on absolute values, rather than percentages. Ben Klein MD LAB BLOOD ORDERABL ES Final Result SUNQUEST * XR Chest 1 View (11/29/2019 4:19 AM EDT) Anatomical Region Laterality Modality Chest Radiographic Juanita ging Narrative 11/29/2019 9:32 AM EDT REQUESTING PHYSICIAN: BEN KLEIN REASON FOR EXAMINATION/PROCEDURE: RAD PDP:Y ??* ??SOB EXAMINATION / PROCEDURE: CHEST 1 VIEW PA/AP PORTABLE Nov 29 2019 - 04:19; ? CLINICAL INDICATION: Shortness of breath TECHNIQUE: CHEST 1 VIEW PA/A P PORTABLE COMPARISON: 14 hours prior FINDINGS: The right lung remains clear. No left pneumothorax. Stable left lower lung airspace density. ?? IMPRESSION: Stable chest. No acute cardiopulmonary abnormalities. CRITICAL RESULT: ?? No. COMMUNICATION: Per this written report. ?? Verified by: KAMARI HERRERA M.D. on Nov 29 2019 ??9:30A Transcribed by: [facility] on Nov 29 2019 ??9:30A Dictated by: KAMARI HERRERA M.D. on Nov 29 2019 ??9:29A Procedure Note Kamari Herrera - 12/31/2020 REQUESTING PHYSICIAN: BEN KLEIN REASON FOR EXAMINATION/PROCEDURE: RAD PDP:Y * SOB EXAMINATION / PROCEDURE: CHEST 1 VIEW PA/AP PORTABLE Nov 29 2019 - 04:19; CLINICAL INDICATION: Shortness of breath TECHNIQUE: CHEST 1 VIEW PA/A P PORTABLE COMPARISON: 14 hours prior FINDINGS: The right lung remains clear. No left pneumothorax. Stable left lower lung airspace density. IMPRESSION: Stable chest. No acute cardiopulmonary abnormalities. CRITICAL RESULT: No. COMMUNICATION: Per this written report. Verified by: KAMARI HERRERA M.D. on Nov 29 2019 9:30A Transcribed by: PSCB on Nov 29 2019 9:30A Dictated by: KAMARI HERRERA M.D. on Nov 29 2019 9:29A us Ben Klein MD IMG XR PROCEDURES Final Result * (ABNORMAL) Glucose Point of Care. (11/28/2019 8:37 PM EDT) POCT Glucose 190(H) 74 - 99 mg/dL SUNQUEST Comment: Accuracy of a glucose result obtained from a capillary whole blood specimen relies upon adequate, non-compromised capillary blood flow.If the capillary glucose result is not consistent with the patient's clinical signs and symptoms, glucose testing should be repeated with either an arterial or venous sample on the glucometer or sent to the main laboratory for testing. SPEC TYPE Venous SUNQUEST 11/28/2019 8:37 PM EDT 11/28/2019 9:10 PM EDT Ana Jean-Baptiste MD LAB BLOOD ORDERABLE S Final Result SUNQUEST * (ABNORMAL) Glucose Point of Care. (11/28/2019 4:42 PM EDT) POCT Glucose 215(H) 74 - 99 mg/dL SUNQUEST Comment: Accuracy of a glucose result obtained from a capillary whole blood specimen relies upon adequate, non-compromised capillary blood flow.If the capillary glucose result is not consistent with the patient's clinical signs and symptoms, glucose testing should be repeated with either an arterial or venous sample on the glucometer or sent to the main laboratory for testing. SPEC TYPE Capillary SUNQUEST 11/28/2019 4:42 PM EDT 11/28/2019 4:45 PM EDT us Ana Jean-Baptiste MD LAB BLOOD ORDERABLE S Final Result SUNQUEST * XR Chest 1 View (11/28/2019 1:03 PM EDT) Anatomical Region Laterality Modality Chest Radiographic Juanita ging Narrative 11/28/2019 2:01 PM EDT REQUESTING PHYSICIAN: SILVER SLOAN REASON FOR EXAMINATION/PROCEDURE: RAD PDP:N ??* ??chest tube removal EXAMINATION / PROCEDURE: CHEST 1 VIEW PA/AP PORTABLE Nov 28 2019 - 13:03; ? CLINICAL INDICATION: RAD PDP:N ??* ??chest tube removal TECHNIQUE: CHEST 1 VIEW PA/AP PORTABLE COMPARISON: November 27, 2019 FINDINGS: Left chest tube discontinued. Mild effusion. Persistent perihilar opacity No pneumothorax ?? IMPRESSION: No pneumothorax CRITICAL RESULT: ?? No. COMMUNICATION: Per this written report. ?? Verified by: LISSA BURK M.D. on Nov 28 2019 ??1:35P Transcribed by: PSCJose on Nov 28 2019 ??1:35P Dictated by: LISSA BURK M.D. on Nov 28 2019 ??1:23P Procedure Note Lissa Burk - 12/31/2020 REQUESTING PHYSICIAN: SILVER SLOAN REASON FOR EXAMINATION/PROCEDURE: RAD PDP:N * chest tube removal EXAMINATION / PROCEDURE: CHEST 1 VIEW PA/AP PORTABLE Nov 28 2019 - 13:03; CLINICAL INDICATION: RAD PDP:N * chest tube removal TECHNIQUE: CHEST 1 VIEW PA/AP PORTABLE COMPARISON: November 27, 2019 FINDINGS: Left chest tube discontinued. Mild effusion. Persistent perihilaropacity No pneumothorax IMPRESSION: No pneumothorax CRITICAL RESULT: No. COMMUNICATION: Per this written report. Verified by: LISSA BURK M.D. on Nov 28 2019 1:35P Transcribed by: PSCJose on Nov 28 2019 1:35P Dictated by: LISSA BURK M.D. on Nov 28 2019 1:23P us Silver Sloan MD IMG XR PROCEDURES Final Result * (ABNORMAL) Glucose Point of Care. (11/28/2019 11:31 AM EDT) POCT Glucose 214(H) 74 - 99 mg/dL SUNQUEST Comment: Accuracy of a glucose result obtained from a capillary whole blood specimen relies upon adequate, non-compromised capillary blood flow.If the capillary glucose result is not consistent with the patient's clinical signs and symptoms, glucose testing should be repeated with either an arterial or venous sample on the glucometer or sent to the main laboratory for testing. SPEC TYPE Capillary SUNQUEST 11/28/2019 11:3 1 AM EDT 11/28/2019 11:35 AM EDT us Ana Jean-Baptiste MD LAB BLOOD ORDERABLE S Final Result SUNQUEST * CT Chest wo IV Contrast (11/28/2019 10:30 AM EDT) Anatomical Region Laterality Modality Chest Computed Tomogra phy Narrative 11/28/2019 11:44 AM EDT REQUESTING PHYSICIAN: SILVER SLOAN REASON FOR EXAMINATION/PROCEDURE: RAD PDP:N ??* ??evaluate for resolution of pleural effusion. EXAMINATION / PROCEDURE: CT Chest WO IVCON Nov 28 2019 - 10:30; ? CLINICAL INDICATION: evaluate for resol ution of pleural effusion. TECHNIQUE: Multiple CT helical images were obtained from thoracic inlet through upper abdomen without administration of IV contrast. Total DLP (Dose-Length Product): 318.25 mGy.cm. Please note: The reported value represents the total of one or more individual components during the CT acquisition on this date and at this time, and as such, the same value may appear in more than one CT report depending on the interpreting/reporting physicians. COMPARISO N: 11/23/2019 FINDINGS: Mediastinum and Pleura: No mediastinal or hilar adenopathy. Coronary artery atherosclerosis. Significantly decreased now trace left pleural effusion, with few tiny foci of left pneumothorax. Pigtail catheter in the le ft posterior costophrenic recess. Lungs: Improved aeration of the left lung, with decreased persistent mild left upper and moderate left lower lobe atelectasis. Mild right lower lobe atelectasis. Upper Abdomen: Partially visualized fluid col lection with some internal foci of gas in the region of the left kidney, appears grossly similar to prior study. Postcholecystectomy. Musculoskeletal: No suspicious lytic or sclerotic lesion. ?? IMPRESSION: Significantly decreased now trace left pleural effusion with improved aeration of the left lung. Persistent moderate left lower lobe and mild left upper lobe atelectasis. Persistent partially visualized left retroperitoneal hematoma. CRITICAL RESULT: No. COMMUNICATION: Per this written report. By electronically signing this report, I, the attending physician, attest that I have personally reviewed the images/data for the above examination(s) and agree with the final edited report. ?? Verified by: LISSA LOPEZ M.D. on Nov 28 2019 11:42A Transcribed by: PUMA on Nov 28 2019 11:03A Dictated by: EVELIO MICHELE M.D. on Nov 28 2019 11:03A Procedure Note Lissa Lopez - 12/31/2020 REQUESTING PHYSICIAN: SILVER SLOAN REASON FOR EXAMINATION/PROCEDURE: RAD PDP:N * evaluate for resolution of pleural effusion. EXAMINATION / PROCEDURE: CT Chest WO IVCON Nov 28 2019 - 10:30; CLINICAL INDICATION: evaluate for resol ution of pleural effusion. TECHNIQUE: Multiple CT helical images were obtained from thoracic inlet through upper abdomen without administration of IV contrast. Total DLP (Dose-Length Product): 318.25 mGy.cm. Please note: The reported value represents the total of one or more individual components during the CT acquisition on this date and at this time, and as such, the same value may appear in more than one CT report depending on the interpreting/reporting physicians. COMPARISO N: 11/23/2019 FINDINGS: Mediastinum and Pleura: No mediastinal or hilar adenopathy. Coronary artery atherosclerosis. Significantly decreased now trace left pleural effusion, with few tiny foci of left pneumothorax. Pigtail catheter in the le ft posterior costophrenic recess. Lungs: Improved aeration of the left lung, with decreased persistent mild left upper and moderate left lower lobe atelectasis. Mild right lower lobe atelectasis. Upper Abdomen: Partially visualized fluid col lection with some internal foci of gas in the region of the left kidney, appears grossly similar to prior study. Postcholecystectomy. Musculoskeletal: No suspicious lytic or sclerotic lesion. IMPRESSION: Significantly decreased now trace left pleural effusion with improved aeration of the left lung. Persistent moderate left lower lobe and mild left upper lobe atelectasis. Persistent partially visualized left retroperitoneal hematoma. CRITICAL RESULT: No. COMMUNICATION: Per this written report. By electronically signing this report, I, the attending physician, attest that I have personally reviewed the images/data for the above examination(s) and agree with the final edited report. Verified by: LISSA LOPEZ M.D. on Nov 28 2019 11:42A Transcribed by: PUMA on Nov 28 2019 11:03A Dictated by: EVELIO MICHELE M.D. on Nov 28 2019 11:03A Silver Sloan MD IMG CT PROCEDURES Final Result * (ABNORMAL) Glucose Point of Care. (11/28/2019 7:33 AM EDT) [facility] POCT Glucose 185(H) 74 - 99 mg/dL SUNQUEST Comment: Accuracy of a glucose result obtained from a capillary whole blood specimen relies upon adequate, non-compromised capillary blood flow.If the capillary glucose result is not consistent with the patient's clinical signs and symptoms, glucose testing should be repeated with either an arterial or venous sample on the glucometer or sent to the main laboratory for testing. SPEC TYPE Capillary SUNQUEST 11/28/2019 7:33 AM EDT 11/28/2019 7:35 AM EDT Ana Jean-Baptiste MD LAB BLOOD ORDERABLE S Final Result SUNQUEST * (ABNORMAL) CBC W/O Differential (11/28/2019 4:22 AM EDT) [facility] WBC Count 17.61(H) 3.7 - 10.3 k/uL SUNQUEST RBC Count 3.60(L) 3.9 - 5.2 M/uL SUNQUEST HGB 9.7(L) 11.2 - 15.7 g/dL SUNQUEST HCT 33.4(L) 34 - 45 % SUNQUEST Platelet Count 368 155 - 369 k/uL SUNQUEST MCV 93 79 - 98 fL SUNQUEST MCH 26.9 26 - 32 pg SUNQUEST MCHC 29.0(L) 30.7 - 35.5 g/dL SUNQUEST RDW 16.8(H) 12.4 - 14.9 % SUNQUEST MPV 9.4 8.8 - 12.5 fL SUNQUEST NRBC COUNT 0.7(H) 0 % SUNQUEST 11/28/2019 4:22 AM EDT 11/28/2019 4:26 AM EDT Ben Klein MD LAB BLOOD ORDERABL ES Final Result Performing Organization Address [facility] de Phone Number SUNQUEST * (ABNORMAL) Phosphorus, Plasma (11/28/2019 3:33 AM EDT) Phosphorus, Plasma 2.1(L) 2.5 - 4.5 mg/dL SUNQUEST 11/28/2019 3:33 AM EDT 11/28/2019 3:42 AM EDT Ben Klein MD LAB BLOOD ORDERABL ES Final Result Performing Organization Address [facility] de Phone Number SUNQUEST * (ABNORMAL) Magnesium, Plasma (11/28/2019 3:33 AM EDT) Magnesium, Plasma 1.8(L) 1.9 - 2.4 mg/dL SUNQUEST 11/28/2019 3:33 AM EDT 11/28/2019 3:42 AM EDT Ben Klein MD LAB BLOOD ORDERABL ES Final Result Performing Organization Address City/[facility] Co de Phone Number SUNQUEST * (ABNORMAL) Basic Metabolic Panel, Plasma (11/28/2019 3:33 AM EDT) Glucose, Plasma 188(H) 74 - 99 mg/dL SUNQUEST BUN, Plasma 29(H) 8 - 23 mg/dL SUNQUEST Creatinine, Plasma 0.69 0.60 - 1.10 mg/dL SUNQUEST BUN/Creatinine Ratio 42(H) 8 - 20 SUNQUEST Sodium, Plasma 135(L) 136 - 145 mmol/L SUNQUEST Potassium, Plasma 5.1(H) 3.7 - 4.8 mmol/L SUNQUEST Chloride, Plasma 99 97 - 107 mmol/L SUNQUEST CO2, Plasma 29 22 - 29 mmol/L SUNQUEST Anion Gap 7 6 - 16 mmol/L SUNQUEST Calcium, Plasma 9.1 8.9 - 10.2 mg/dL SUNQUEST eGFR >60 SEE NOTE SUNQUEST eGFR, if AFR/AM >60 >60 SEE NOTE SUNQUEST Comment: (NOTE) eGFR = estimated GFR; eGFR units = mL/min/1.73 sq meters Chronic Kidney Disease is considered if eGFR <60 mL/min/1.73 sq meters Kidney failure is considered if eGFR is <15 mL/min/1.73 sq meters. eGFR assumes steady state plasma creatinine concentration; not applicable if renal function is rapidly changing or patient is on dialysis. 11/28/2019 3:33 AM EDT 11/28/2019 3:42 AM EDT Ben Klein MD LAB BLOOD ORDERABL ES Final Result SUNQUEST * CBC W/O Differential (11/28/2019 3:33 AM EDT) WBC Count SPECIMEN CLOTTED,ЕКАТЕРИНА IBANEZ, RECOLLECT REQUESTED 3.7 - 10.3 k/uL SUNQUEST Comment:REBEKAH VALENZUELA RN@ 0401 RBC Count SPECIMEN CLOTTED,ЕКАТЕРИНА IBANEZ, RECOLLECT REQUESTED 3.9 - 5.2 M/uL SUNQUEST Comment:REBEKAH VALENZUELA RN@ 0401 HGB SPECIMEN CLOTTED,ЕКАТЕРИНА IBANEZ, RECOLLECT REQUESTED 11.2 - 15.7 g/dL SUNQUEST Comment:REBEKAH VALENZUELA RN@ 0401 HCT SPECIMEN CLOTTED,ЕКАТЕРИНА IBANEZ, RECOLLECT REQUESTED 34 - 45 % SUNQUEST Comment:REBEKAH VALENZUELA RN@ 0401 Platelet Count SPECIMEN CLOTTED,ЕКАТЕРИНА IBANEZ, RECOLLECT REQUESTED 155 - 369 k/uL SUNQUEST Comment:REBEKAH VALENZUELA RN@ 0401 MCV SPECIMEN CLOTTED,ЕКАТЕРИНА IBANEZ, RECOLLECT REQUESTED 79 - 98 fL SUNQUEST Comment:REBEKAH VALENZUELA RN@ 0401 MCH SPECIMEN CLOTTED,ЕКАТЕРИНА IBANEZ, RECOLLECT REQUESTED 26 - 32 pg SUNQUEST Comment:REBEKAH VALENZUELA RN@ 0401 MCHC SPECIMEN CLOTTED,ЕКАТЕРИНА IBANEZ, RECOLLECT REQUESTED 30.7 - 35.5 g/dL SUNQUEST Comment:REBEKAH VALENZUELA RN@ 0401 RDW SPECIMEN CLOTTED,ЕКАТЕРИНА IBANEZ, RECOLLECT REQUESTED 12.4 - 14.9 % SUNQUEST Comment:REBEKAH VALENZUELA RN@ 0401 MPV SPECIMEN CLOTTED,ЕКАТЕРИНА IBANEZ, RECOLLECT REQUESTED 8.8 - 12.5 fL SUNQUEST Comment:REBEKAH VALENZUELA RN@ 0401 NRBC COUNT SPECIMEN CLOTTED,ЕКАТЕРИНА IBANEZ, RECOLLECT REQUESTED 0 % SUNQUEST Comment:REBEKAH VALENZUELA RN@ 0401 11/28/2019 3:33 AM EDT 11/28/2019 3:46 AM EDT Ben Klein MD LAB BLOOD ORDERABL ES Final Result SUNQUEST * WBC Differential (11/28/2019 3:33 AM EDT) Differential Type SPECIMEN CLOTTED,SILVERIOI MARCELLE, RECOLLECT REQUESTED REBEKAH VALENZUELA RN@ 0401 SUNQUEST 11/28/2019 3:33 AM EDT 11/28/2019 3:46 AM EDT Narrative SUNQUEST - 11/28/2019 4:02 AM EDT SPECIMEN CLOTTED,CREDITED, RECOLLECT REQUESTED REBEKAH VALENZUELA RN@ 0401 CORRECTED ON 11/27 AT 0402: PREVIOUSLY REPORTED Therapeutic decision making should be based on absolute values, rather than percentages. SPECIMEN CLOTTED,CREDITED, RECOLLECT REQUESTED REBEKAH VALENZUELA RN@ 0401 CORRECTED ON 11/27 AT 0402: PREVIOUSLY REPORTED Therapeutic decision making should be based on absolute values, rather than percentages. SPECIMEN CLOTTED,CREDITED, RECOLLECT REQUESTED REBEKAH VALENZUELA RN@ 0401 CORRECTED ON 11/27 AT 0402: PREVIOUSLY REPORTED Therapeutic decision making should be based on absolute values, rather than percentages. SPECIMEN CLOTTED,CREDITED, RECOLLECT REQUESTED REBEKAH VALENZUELA RN@ 0401 CORRECTED ON 11/27 AT 0402: PREVIOUSLY REPORTED Therapeutic decision making should be based on absolute values, rather than percentages. Ben Klein MD LAB BLOOD ORDERABL ES Final Result SUNQUEST * (ABNORMAL) Glucose Point of Care. (11/27/2019 9:00 PM EDT) POCT Glucose 164(H) 74 - 99 mg/dL SUNQUEST Comment: Accuracy of a glucose result obtained from a capillary whole blood specimen relies upon adequate, non-compromised capillary blood flow.If the capillary glucose result is not consistent with the patient's clinical signs and symptoms, glucose testing should be repeated with either an arterial or venous sample on the glucometer or sent to the main laboratory for testing. SPEC TYPE Capillary SUNQUEST 11/27/2019 9:00 PM EDT 11/27/2019 9:05 PM EDT Ana Jean-Baptiste MD LAB BLOOD ORDERABLE S Final Result Performing Organization Address City/[facility]/ZIP Co de Phone Number SUNQUEST * (ABNORMAL) Glucose Point of Care. (11/27/2019 4:56 PM EDT) [facility] POCT Glucose 155(H) 74 - 99 mg/dL SUNQUEST Comment: Accuracy of a glucose result obtained from a capillary whole blood specimen relies upon adequate, non-compromised capillary blood flow.If the capillary glucose result is not consistent with the patient's clinical signs and symptoms, glucose testing should be repeated with either an arterial or venous sample on the glucometer or sent to the main laboratory for testing. SPEC TYPE Capillary SUNQUEST 11/27/2019 4:56 PM EDT 11/27/2019 5:00 PM EDT Ana Jean-Baptiste MD LAB BLOOD ORDERABLE S Final Result SUNQUEST * (ABNORMAL) Glucose Point of Care. (11/27/2019 4:40 PM EDT) POCT Glucose 188(H) 74 - 99 mg/dL SUNQUEST Comment:Performed at Point o f Care 11/27/2019 4:40 PM EDT 11/27/2019 4:45 PM EDT Ana Jean-Baptiste MD LAB BLOOD ORDERABLE S Final Result Performing Organization Address [facility] Phone Number SUNQUEST * LACTATE,ARTERIAL,POINT OF CARE DC (11/27/2019 4:40 PM EDT) Pathologist [facility] Lactate, Arterial 1.4 0.5 - 1.6 mmol/L SUNQUEST Comment:Performed at Point o f Care 11/27/2019 4:40 PM EDT 11/27/2019 4:45 PM EDT Ana Jean-Baptiste MD LAB BLOOD ORDERABLE S Final Result Performing Organization Address [facility] de Phone Number SUNQUEST * (ABNORMAL) HEMATOCRIT, POINT OF CARE DC (11/27/2019 4:40 PM EDT) Pathologist [facility] HCT 30.0(L) 34 - 45 % SUNQUEST Comment:Performed at Point o f Care 11/27/2019 4:40 PM EDT 11/27/2019 4:45 PM EDT Ana Jean-Baptiste MD LAB BLOOD ORDERABLE S Final Result Performing Organization Address [facility] de Phone Number SUNQUEST * (ABNORMAL) TOTAL HEMOGLOBIN,POINT OF CARE DC (11/27/2019 4:40 PM EDT) Pathologist [facility] Total Hemoglobin, Arterial, Whole Blood 10.1(L) 11.2 - 15.7 g/dL SUNQUEST Comment:Performed at Point o f Care 11/27/2019 4:40 PM EDT 11/27/2019 4:45 PM EDT Ana Jean-Baptiste MD LAB BLOOD ORDERABLE S Final Result SUNQUEST * (ABNORMAL) ICA, POINT OF CARE (11/27/2019 4:40 PM EDT) Ionized Calcium, Whole Blood 5.3(H) 4.6 - 5.1 mg/dL SUNQUEST Comment:Performed at Point o f Care 11/27/2019 4:40 PM EDT 11/27/2019 4:45 PM EDT Ana Jean-Baptiste MD LAB BLOOD ORDERABLE S Final Result Performing Organization Address City/[facility] Co de Phone Number SUNQUEST * CHLORIDE, POINT OF CARE DC (11/27/2019 4:40 PM EDT) Chloride, Plasma 103 97 - 107 mmol/L SUNQUEST Comment:Performed at Point o f Care 11/27/2019 4:40 PM EDT 11/27/2019 4:45 PM EDT Ana Jean-Baptiste MD LAB BLOOD ORDERABLE S Final Result Performing Organization Address City/[facility] Co de Phone Number SUNQUEST * (ABNORMAL) POCT SODIUM DC (11/27/2019 4:40 PM EDT) Sodium, Plasma 132(L) 136 - 145 mmol/L SUNQUEST Comment:Performed at Point o f Care 11/27/2019 4:40 PM EDT 11/27/2019 4:45 PM EDT Ana Jean-Baptiste MD LAB BLOOD ORDERABLE S Final Result Performing Organization Address City/State/[facility] Co de Phone Number SUNQUEST * POTASSIUM, POINT OF CARE (11/27/2019 4:40 PM EDT) Potassium, Plasma 4.4 3.7 - 4.8 mmol/L SUNQUEST Comment:Performed at Point o f Care 11/27/2019 4:40 PM EDT 11/27/2019 4:45 PM EDT Ana Jean-Baptiste MD LAB BLOOD ORDERABLE S Final Result Performing Organization Address [facility] Co de Phone Number SUNQUEST * (ABNORMAL) ABG, Point of Care (11/27/2019 4:40 PM EDT) pH, Arterial 7.38 7.31 - 7.42 SUNQUEST pCO2, Arterial 65(HH) 32 - 45 mmHg SUNQUEST pO2, Arterial 93 >70 mmHg SUNQUEST O2 Sat,Calc 99(H) 94 - 98 % SUNQUEST Base Excess, Arterial 10.7(H) 0 - 3.0 mmol/L SUNQUEST Bicarbonate, Calculated, Arterial 38(H) 22 - 26 mmol/L SUNQUEST Body Temperature 98.6 F SUNQUEST pH, Temp Corrected, Arterial 7.38 7.31 - 7.42 SUNQUEST PCO2, Temp Corrected, Venous 65(HH) 32 - 45 mmHg SUNQUEST PO2, Temp Correct, Venous 93 >70 mmHg SUNQUEST Comment: KRYSTIN TTOOOHBRADEN [address] Y Performed at Point of Care 11/27/2019 4:40 PM EDT 11/27/2019 4:45 PM EDT Result [facility] Ana Jean-Baptiste MD LAB BLOOD ORDERABLE S Final Result Performing Organization Address [facility] de Phone Number SUNQUEST * (ABNORMAL) Glucose Point of Care. (11/27/2019 12:03 PM EDT) POCT Glucose 185(H) 74 - 99 mg/dL SUNQUEST Comment: Accuracy of a glucose result obtained from a capillary whole blood specimen relies upon adequate, non-compromised capillary blood flow.If the capillary glucose result is not consistent with the patient's clinical signs and symptoms, glucose testing should be repeated with either an arterial or venous sample on the glucometer or sent to the main laboratory for testing. SPEC TYPE Capillary SUNQUEST 11/27/2019 12:0 3 PM EDT 11/27/2019 12:05 PM EDT Ana Jean-Baptiste MD LAB BLOOD ORDERABLE S Final Result Performing Organization Address [facility] Co de Phone Number SUNQUEST * (ABNORMAL) Glucose Point of Care. (11/27/2019 9:04 AM EDT) POCT Glucose 184(H) 74 - 99 mg/dL SUNQUEST Comment: Accuracy of a glucose result obtained from a capillary whole blood specimen relies upon adequate, non-compromised capillary blood flow.If the capillary glucose result is not consistent with the patient's clinical signs and symptoms, glucose testing should be repeated with either an arterial or venous sample on the glucometer or sent to the main laboratory for testing. SPEC TYPE Capillary SUNQUEST 11/27/2019 9:04 AM EDT 11/27/2019 10:40 AM EDT [facility] LAB BLOOD ORDERABLE S Final Result Performing Organization Address [facility] de Phone Number SUNQUEST * XR Chest 1 View (11/27/2019 1:30 AM EDT) Anatomical Region Laterality Modality Chest Radiographic Juanita ging Narrative 11/27/2019 8:11 AM EDT REQUESTING PHYSICIAN: CONRAD DE LA TORRE REASON FOR EXAMINATION/PROCEDURE: RAD PDP:Y ??* ??left pleural effusion s/p thora EXAMINATION / PROCEDURE: CHEST 1 VIEW PA/AP PORTABLE Nov 27 2019 - 01:30; ? CLINICAL INDICATION: Left pleural effusion a fter thoracentesis TECHNIQUE: CHEST 1 VIEW PA/AP PORTABLE COMPARISON: November 26, 2019 FINDINGS: Left lung atelectasis and airspace disease is stable. Left pleural effusion. No pneumothorax. Small amount of left-sided pleural fluid is si milar to prior. ?? IMPRESSION: Stable exam. CRITICAL RESULT: ?? No. COMMUNICATION: Per this written report. ?? Verified by: HELADIO MISHRA M.D. on Nov 27 2019 ??8:09A Transcribed by: [facility] on Nov 27 2019 ??8:09A Dictated by: HELADIO MISHRA M.D. on Nov 27 2019 ??8:09A Procedure Note Heladio Mishra - 12/31/2020 REQUESTING PHYSICIAN: CONRAD DE LA TORRE REASON FOR EXAMINATION/PROCEDURE: RAD PDP:Y * left pleural effusion s/p thora EXAMINATION / PROCEDURE: CHEST 1 VIEW PA/AP PORTABLE Nov 27 2019 - 01:30; CLINICAL INDICATION: Left pleural effusion a fter thoracentesis TECHNIQUE: CHEST 1 VIEW PA/AP PORTABLE COMPARISON: November 26, 2019 FINDINGS: Left lung atelectasis and airspace disease is stable. Left pleural effusion. No pneumothorax. Small amount of left-sided pleural fluid is si milar to prior. IMPRESSION: Stable exam. CRITICAL RESULT: No. COMMUNICATION: Per this written report. Verified by: HELADIO MISHRA M.D. on Nov 27 2019 8:09A Transcribed by: [facility] on Nov 27 2019 8:09A Dictated by: HELADIO MISHRA M.D. on Nov 27 2019 8:09A us Conrad De La Torre MD IMG XR PROCEDURES Final Result * (ABNORMAL) Glucose Point of Care. (11/26/2019 8:27 PM EDT) [facility] Signature POCT Glucose 228(H) 74 - 99 mg/dL SUNQUEST Comment: Accuracy of a glucose result obtained from a capillary whole blood specimen relies upon adequate, non-compromised capillary blood flow.If the capillary glucose result is not consistent with the patient's clinical signs and symptoms, glucose testing should be repeated with either an arterial or venous sample on the glucometer or sent to the main laboratory for testing. SPEC TYPE Capillary SUNQUEST 11/26/2019 8:27 PM EDT 11/26/2019 8:30 PM EDT us Ana Jean-Baptiste MD LAB BLOOD ORDERABLE S Final Result SUNQUEST * XR Chest 1 View (11/26/2019 1:10 PM EDT) Anatomical Region Laterality Modality Chest Radiographic Juanita ging Narrative 11/26/2019 2:49 PM EDT REQUESTING PHYSICIAN: CONRAD DE LA TORRE REASON FOR EXAMINATION/PROCEDURE: RAD PDP:Y ??* ??pleural effusion EXAMINATION / PROCEDURE: CHEST 1 VIEW PA/AP PORTABLE Nov 26 2019 - 13:10; ? CLINICAL INDICATION: Pleural effusion TECHNIQUE: CHEST 1 VIEW PA/AP PORTABLE COMPARISON: 11 hours prior FINDINGS: Left-sided pleural catheter in place. Left lung opacification and pleural fluid are similar to prior. No pneumothorax. ?? IMPRESSION: Stable exam. CRITICAL RESULT: ?? No. CO MMUNICATION: Per this written report. ?? Verified by: HELADIO MISHRA M.D. on Nov 26 2019 ??2:48P Transcribed by: [facility] on Nov 26 2019 ??2:48P Dictated by: HELADIO MISHRA M.D. on Nov 26 2019 ??2:47P Procedure Note Heladio Mishra - 12/31/2020 REQUESTING PHYSICIAN: CONRAD DE LA TORRE REASON FOR EXAMINATION/PROCEDURE: RAD PDP:Y * pleural effusion EXAMINATION / PROCEDURE: CHEST 1 VIEW PA/AP PORTABLE Nov 26 2019 - 13:10; CLINICAL INDICATION: Pleural effusion TECHNIQUE: CHEST 1 VIEW PA/AP PORTABLE COMPARISON: 11 hours prior FINDINGS: Left-sided pleural catheter in place. Left lung opacification and pleural fluid are similar to prior. No pneumothorax. IMPRESSION: Stable exam. CRITICAL RESULT: No. CO MMUNICATION: Per this written report. Verified by: HELADIO MISHRA M.D. on Nov 26 2019 2:48P Transcribed by: [facility] on Nov 26 2019 2:48P Dictated by: HELADIO MISHRA M.D. on Nov 26 2019 2:47P Conrad De La Torre MD IMG XR PROCEDURES Final Result * (ABNORMAL) Glucose Point of Care. (11/26/2019 12:26 PM EDT) [facility] POCT Glucose 189(H) 74 - 99 mg/dL SUNQUEST Comment: Accuracy of a glucose result obtained from a capillary whole blood specimen relies upon adequate, non-compromised capillary blood flow.If the capillary glucose result is not consistent with the patient's clinical signs and symptoms, glucose testing should be repeated with either an arterial or venous sample on the glucometer or sent to the main laboratory for testing. SPEC TYPE Capillary SUNQUEST 11/26/2019 12:2 6 PM EDT 11/26/2019 12:30 PM EDT Ana Jean-Baptiste MD LAB BLOOD ORDERABLE S Final Result Performing Organization Address [facility]/ZIP Co de Phone Number SUNQUEST * (ABNORMAL) Glucose Point of Care. (11/26/2019 8:51 AM EDT) Pathologist [facility] POCT Glucose 194(H) 74 - 99 mg/dL SUNQUEST Comment: Accuracy of a glucose result obtained from a capillary whole blood specimen relies upon adequate, non-compromised capillary blood flow.If the capillary glucose result is not consistent with the patient's clinical signs and symptoms, glucose testing should be repeated with either an arterial or venous sample on the glucometer or sent to the main laboratory for testing. SPEC TYPE Capillary SUNQUEST 11/26/2019 8:51 AM EDT 11/26/2019 8:55 AM EDT Ana Jean-Baptiste MD LAB BLOOD ORDERABLE S Final Result Performing Organization Address City/[facility]/ZIP Co de Phone Number SUNQUEST * (ABNORMAL) CBC W/O Differential (11/26/2019 5:15 AM EDT) Pathologist [facility] WBC Count 15.54(H) 3.7 - 10.3 k/uL SUNQUEST RBC Count 3.69(L) 3.9 - 5.2 M/uL SUNQUEST HGB 9.8(L) 11.2 - 15.7 g/dL SUNQUEST HCT 34.4 34 - 45 % SUNQUEST Platelet Count 460(H) 155 - 369 k/uL SUNQUEST MCV 93 79 - 98 fL SUNQUEST MCH 26.6 26 - 32 pg SUNQUEST MCHC 28.5(L) 30.7 - 35.5 g/dL SUNQUEST RDW 16.6(H) 12.4 - 14.9 % SUNQUEST MPV 9.2 8.8 - 12.5 fL SUNQUEST NRBC COUNT 0.0 0 % SUNQUEST 11/26/2019 5:15 AM EDT 11/26/2019 5:28 AM EDT Rashi Ortiz APRN LAB BLOOD ORDERABLES Final Result Performing Organization Address City/[facility] Co de Phone Number SUNQUEST * (ABNORMAL) Comprehensive Metabolic Panel, Plasma (11/26/2019 5:15 AM EDT) Glucose, Plasma 225(H) 74 - 99 mg/dL SUNQUEST BUN, Plasma 50(H) 8 - 23 mg/dL SUNQUEST Creatinine, Plasma 1.02 0.60 - 1.10 mg/dL SUNQUEST BUN/Creatinine Ratio 49(H) 8 - 20 SUNQUEST Sodium, Plasma 137 136 - 145 mmol/L SUNQUEST Potassium, Plasma 4.7 3.7 - 4.8 mmol/L SUNQUEST Chloride, Plasma 95(L) 97 - 107 mmol/L SUNQUEST CO2, Plasma 29 22 - 29 mmol/L SUNQUEST Anion Gap 13 6 - 16 mmol/L SUNQUEST Calcium, Plasma 9.8 8.9 - 10.2 mg/dL SUNQUEST AST, Plasma 5(L) 9 - 36 U/L SUNQUEST ALT, Plasma 11 8 - 33 U/L SUNQUEST Alkaline Phosphatase, Plasma 103 46 - 142 U/L SUNQUEST Total Bilirubin, Plasma 0.2 0.2 - 1.1 mg/dL SUNQUEST Total Protein 7.7 6.3 - 7.9 g/dL SUNQUEST Albumin, Plasma 2.0(L) 3.3 - 4.6 g/dL SUNQUEST eGFR 54 SEE NOTE SUNQUEST eGFR, if AFR/AM >60 >60 SEE NOTE SUNQUEST Comment: (NOTE) eGFR = estimated GFR; eGFR units = mL/min/1.73 sq meters Chronic Kidney Disease is considered if eGFR <60 mL/min/1.73 sq meters Kidney failure is considered if eGFR is <15 mL/min/1.73 sq meters. eGFR assumes steady state plasma creatinine concentration; not applicable if renal function is rapidly changing or patient is on dialysis. 11/26/2019 5:15 AM EDT 11/26/2019 5:29 AM EDT Ben Klein MD LAB BLOOD ORDERABL ES Final Result SUNQUEST * Magnesium, Plasma (11/26/2019 5:15 AM EDT) Magnesium, Plasma 2.2 1.9 - 2.4 mg/dL SUNQUEST 11/26/2019 5:15 AM EDT 11/26/2019 5:29 AM EDT Ben Klein MD LAB BLOOD ORDERABL ES Final Result Performing Organization Address [facility] de Phone Number SUNQUEST * (ABNORMAL) Basic Metabolic Panel, Plasma (11/26/2019 5:15 AM EDT) Glucose, Plasma 225(H) 74 - 99 mg/dL SUNQUEST BUN, Plasma 51(H) 8 - 23 mg/dL SUNQUEST Creatinine, Plasma 1.01 0.60 - 1.10 mg/dL SUNQUEST BUN/Creatinine Ratio 50(H) 8 - 20 SUNQUEST Sodium, Plasma 138 136 - 145 mmol/L SUNQUEST Potassium, Plasma 4.6 3.7 - 4.8 mmol/L SUNQUEST Chloride, Plasma 96(L) 97 - 107 mmol/L SUNQUEST CO2, Plasma 30(H) 22 - 29 mmol/L SUNQUEST Anion Gap 12 6 - 16 mmol/L SUNQUEST Calcium, Plasma 9.8 8.9 - 10.2 mg/dL SUNQUEST eGFR 54 SEE NOTE SUNQUEST eGFR, if AFR/AM >60 >60 SEE NOTE SUNQUEST Comment: (NOTE) eGFR = estimated GFR; eGFR units = mL/min/1.73 sq meters Chronic Kidney Disease is considered if eGFR <60 mL/min/1.73 sq meters Kidney failure is considered if eGFR is <15 mL/min/1.73 sq meters. eGFR assumes steady state plasma creatinine concentration; not applicable if renal function is rapidly changing or patient is on dialysis. 11/26/2019 5:15 AM EDT 11/26/2019 5:29 AM EDT us Ben Klein MD LAB BLOOD ORDERABL ES Final Result Performing Organization Address [facility] Co de Phone Number SUNQUEST * XR Chest 1 View (11/26/2019 1:38 AM EDT) Anatomical Region Laterality Modality Chest Radiographic Juanita ging Narrative 11/26/2019 7:30 AM EDT REQUESTING PHYSICIAN: BEN BUCK REASON FOR EXAMINATION/PROCEDURE: RAD PDP:N ??* ??evaluate pleural effusion EXAMINATION / PROCEDURE: CHEST 1 VIEW PA/AP PORTABLE Nov 26 2019 - 01:38; ? CLINICAL INDICATION: Evaluate pleural effusion TECHNIQUE: CHEST 1 VIEW PA/AP PORTABLE COMPARISON: November 25, 2019 FINDINGS: Left lung airspace disease is similar to comparison. Left pleural catheter in place. Stable volume of left-sided pleural fluid. ?? IMPRESSION: Stable exam. CRITICAL RESULT: ?? No. COMMUNICATION: Per this written report. ?? Verified by: HELADIO MISHRA M.D. on Nov 26 2019 ??7:29A Transcribed by: [facility] on Nov 26 2019 ??7:29A Dictated by: HELADIO MISHRA M.D. on Nov 26 2019 ??7:27A Procedure Note Heladio Mishra - 12/31/2020 REQUESTING PHYSICIAN: BEN BUCK REASON FOR EXAMINATION/PROCEDURE: RAD PDP:N * evaluate pleural effusion EXAMINATION / PROCEDURE: CHEST 1 VIEW PA/AP PORTABLE Nov 26 2019 - 01:38; CLINICAL INDICATION: Evaluate pleural effusion TECHNIQUE: CHEST 1 VIEW PA/AP PORTABLE COMPARISON: November 25, 2019 FINDINGS: Left lung airspace disease is similar to comparison. Left pleural catheter in place. Stable volume of left-sided pleural fluid. IMPRESSION: Stable exam. CRITICAL RESULT: No. COMMUNICATION: Per this written report. Verified by: HELADIO MISHRA M.D. on Nov 26 2019 7:29A Transcribed by: [facility] on Nov 26 2019 7:29A Dictated by: HELADIO MISHRA M.D. on Nov 26 2019 7:27A Ben Buck MD IMG XR PROCEDURES Final Resul t * (ABNORMAL) Glucose Point of Care. (11/25/2019 8:12 PM EDT) POCT Glucose 262(H) 74 - 99 mg/dL SUNQUEST Comment: Accuracy of a glucose result obtained from a capillary whole blood specimen relies upon adequate, non-compromised capillary blood flow.If the capillary glucose result is not consistent with the patient's clinical signs and symptoms, glucose testing should be repeated with either an arterial or venous sample on the glucometer or sent to the main laboratory for testing. SPEC TYPE Capillary SUNQUEST 11/25/2019 8:12 PM EDT 11/25/2019 8:20 PM EDT us Ana Jean-Baptiste MD LAB BLOOD ORDERABLE S Final Result Performing Organization Address [facility] Co de Phone Number SUNQUEST * (ABNORMAL) Vancomycin, Peak, Plasma (11/25/2019 4:45 PM EDT) Vancomycin, Peak, Plasma 42.4(H) 20.0 - 40.0 ug/mL SUNQUEST Comment: Therapeutic Peak: ??20 to 40 ug/mL Supratherapeutic Peak: ??>40 ug/mL 11/25/2019 4:45 PM EDT 11/25/2019 4:53 PM EDT Ben Klein MD LAB BLOOD ORDERABL ES Final Result Performing Organization Address [facility] de Phone Number SUNQUEST * Gram stain (11/25/2019 4:45 PM EDT) 11/25/2019 4:45 PM EDT 11/25/2019 4:59 PM EDT Narrative SUNQUEST - 11/02/2020 11:35 AM EST SQ ACC. NUMBER ?[id number] SPECIMEN DESCRIPTION: ?EXPECTORATED SPUTUM SPECIAL REQUESTS: ?NONE GRAM STAIN ? GREATER THAN 25 WBC/LPF ? FEWER THAN 10 EPITHELIAL CELLS / LPF ? NO ORGANISMS SEEN REPORT STATUS: ? FINAL [id number] Deng Brumfield [employer] LAB MICROBIOLOGY - GENERA L ORDERABLES Final Result Performing Organization Address [facility] de Phone Number SUNQUEST * Respiratory Culture and Gram Stain (11/25/2019 4:45 PM EDT) 11/25/2019 4:45 PM EDT 11/25/2019 4:59 PM EDT Narrative SUNQUEST - 11/02/2020 11:35 AM EST SQ ACC. NUMBER ?[id number] SPECIMEN DESCRIPTION: ?EXPECTORATED SPUTUM SPECIAL REQUESTS: ?NONE QUANTITATION: ?LIGHT GROWTH CULTURE: ? MIXED UPPER RESPIRATORY JOSÉ MIGUEL REPORT STATUS: ? FINAL [id number] Deng Brumfield [facility] LAB MICROBIOLOGY - GENERA L ORDERABLES Final Result Performing Organization Address [facility] de Phone Number SUNQUEST * (ABNORMAL) Glucose Point of Care. (11/25/2019 4:38 PM EDT) [facility] POCT Glucose 328(H) 74 - 99 mg/dL SUNQUEST Comment: Accuracy of a glucose result obtained from a capillary whole blood specimen relies upon adequate, non-compromised capillary blood flow.If the capillary glucose result is not consistent with the patient's clinical signs and symptoms, glucose testing should be repeated with either an arterial or venous sample on the glucometer or sent to the main laboratory for testing. SPEC TYPE Capillary SUNQUEST 11/25/2019 4:38 PM EDT 11/25/2019 4:45 PM EDT Ana Jean-Baptiste MD LAB BLOOD ORDERABLE S Final Result Performing Organization Address [facility] de Phone Number SUNQUEST * (ABNORMAL) Glucose Point of Care. (11/25/2019 12:10 PM EDT) [facility] POCT Glucose 334(H) 74 - 99 mg/dL SUNQUEST Comment: Accuracy of a glucose result obtained from a capillary whole blood specimen relies upon adequate, non-compromised capillary blood flow.If the capillary glucose result is not consistent with the patient's clinical signs and symptoms, glucose testing should be repeated with either an arterial or venous sample on the glucometer or sent to the main laboratory for testing. SPEC TYPE Capillary SUNQUEST 11/25/2019 12:1 0 PM EDT 11/25/2019 12:25 PM EDT Result [facility] Ana Jean-Baptiste MD LAB BLOOD ORDERABLE S Final Result Performing Organization Address [facility] Phone Number SUNQUEST * (ABNORMAL) Vancomycin, Trough, Plasma (11/25/2019 10:20 AM EDT) [facility] Vancomycin, Trough, Plasma 23.8(H) 10.0 - 20.0 ug/mL SUNQUEST Comment: Therapeutic Trough: ??10 to 20 ug/mL Supratherapeutic Trough: ??>20 ug/mL 11/25/2019 10:2 0 AM EDT 11/25/2019 10:26 AM EDT Result [facility] Ben Klein MD LAB BLOOD ORDERABL ES Final Result Performing Organization Address [facility] de Phone Number SUNQUEST * (ABNORMAL) Glucose Point of Care. (11/25/2019 7:05 AM EDT) [facility] POCT Glucose 329(H) 74 - 99 mg/dL SUNQUEST Comment: Accuracy of a glucose result obtained from a capillary whole blood specimen relies upon adequate, non-compromised capillary blood flow.If the capillary glucose result is not consistent with the patient's clinical signs and symptoms, glucose testing should be repeated with either an arterial or venous sample on the glucometer or sent to the main laboratory for testing. SPEC TYPE Capillary SUNQUEST 11/25/2019 7:05 AM EDT 11/25/2019 7:10 AM EDT Ana Jean-Baptiste MD LAB BLOOD ORDERABLE S Final Result Performing Organization Address [facility] Phone Number SUNQUEST * Phosphorus, Plasma (11/25/2019 4:24 AM EDT) Phosphorus, Plasma 3.9 2.5 - 4.5 mg/dL SUNQUEST 11/25/2019 4:24 AM EDT 11/25/2019 4:36 AM EDT Ben Klein MD LAB BLOOD ORDERABL ES Final Result Performing Organization Address [facility] Phone Number SUNQUEST * Magnesium, Plasma (11/25/2019 4:24 AM EDT) Magnesium, Plasma 2.3 1.9 - 2.4 mg/dL SUNQUEST 11/25/2019 4:24 AM EDT 11/25/2019 4:36 AM EDT Ben Klein MD LAB BLOOD ORDERABL ES Final Result Performing Organization Address [facility] Phone Number SUNQUEST * (ABNORMAL) Basic Metabolic Panel, Plasma (11/25/2019 4:24 AM EDT) Glucose, Plasma 409(H) 74 - 99 mg/dL SUNQUEST BUN, Plasma 51(H) 8 - 23 mg/dL SUNQUEST Creatinine, Plasma 1.12(H) 0.60 - 1.10 mg/dL SUNQUEST BUN/Creatinine Ratio 46(H) 8 - 20 SUNQUEST Sodium, Plasma 136 136 - 145 mmol/L SUNQUEST Potassium, Plasma 4.7 3.7 - 4.8 mmol/L SUNQUEST Chloride, Plasma 94(L) 97 - 107 mmol/L SUNQUEST CO2, Plasma 31(H) 22 - 29 mmol/L SUNQUEST Anion Gap 11 6 - 16 mmol/L SUNQUEST Calcium, Plasma 9.5 8.9 - 10.2 mg/dL SUNQUEST eGFR 48 SEE NOTE SUNQUEST eGFR, if AFR/AM 58(L) >60 SEE NOTE SUNQUEST Comment: (NOTE) eGFR = estimated GFR; eGFR units = mL/min/1.73 sq meters Chronic Kidney Disease is considered if eGFR <60 mL/min/1.73 sq meters Kidney failure is considered if eGFR is <15 mL/min/1.73 sq meters. eGFR assumes steady state plasma creatinine concentration; not applicable if renal function is rapidly changing or patient is on dialysis. 11/25/2019 4:24 AM EDT 11/25/2019 4:36 AM EDT Ben Klein MD LAB BLOOD ORDERABL ES Final Result Performing Organization Address [facility] Co de Phone Number SUNQUEST * (ABNORMAL) CBC W/O Differential (11/25/2019 4:24 AM EDT) WBC Count 14.25(H) 3.7 - 10.3 k/uL SUNQUEST RBC Count 3.35(L) 3.9 - 5.2 M/uL SUNQUEST HGB 8.9(L) 11.2 - 15.7 g/dL SUNQUEST HCT 31.6(L) 34 - 45 % SUNQUEST Platelet Count 445(H) 155 - 369 k/uL SUNQUEST MCV 94 79 - 98 fL SUNQUEST MCH 26.6 26 - 32 pg SUNQUEST MCHC 28.2(L) 30.7 - 35.5 g/dL SUNQUEST RDW 16.7(H) 12.4 - 14.9 % SUNQUEST MPV 9.3 8.8 - 12.5 fL SUNQUEST NRBC COUNT 0.0 0 % SUNQUEST 11/25/2019 4:24 AM EDT 11/25/2019 4:36 AM EDT Ben Klein MD LAB BLOOD ORDERABL ES Final Result SUNQUEST * (ABNORMAL) WBC Differential (11/25/2019 4:24 AM EDT) Pathologist [facility] Differential Type AUTOMATED SUNQUEST Neutrophils % 89 % SUNQUEST Lymphocytes 5 % SUNQUEST Monocytes 4 % SUNQUEST Eosinophils 0 % SUNQUEST Basophils 0 % SUNQUEST Immature Granulocytes % 2 % SUNQUEST ABS Neutrophil 12.65(H) 1.6 - 6.1 k/uL SUNQUEST ABS Lymphocyte 0.69(L) 1.2 - 3.9 k/uL SUNQUEST ABS Monocyte 0.58 0.3 - 0.9 k/uL SUNQUEST ABS Eosinophil 0.00 0.0 - 0.5 k/uL SUNQUEST ABS Basophil 0.03 0.0 - 0.1 k/uL SUNQUEST Immature Granulocyte Absolute 0.30(H) 0 - 0.06 k/uL SUNQUEST 11/25/2019 4:24 AM EDT 11/25/2019 4:36 AM EDT Narrative SUNQUEST - 11/25/2019 4:43 AM EDT Therapeutic decision making should be based on absolute values, rather than percentages. Therapeutic decision making should be based on absolute values, rather than percentages. Therapeutic decision making should be based on absolute values, rather than percentages. Therapeutic decision making should be based on absolute values, rather than percentages. Ben Klein MD LAB BLOOD ORDERABL ES Final Result SUNQUEST * (ABNORMAL) Glucose Point of Care. (11/25/2019 2:56 AM EDT) [facility] POCT Glucose 398(H) 74 - 99 mg/dL SUNQUEST Comment: Accuracy of a glucose result obtained from a capillary whole blood specimen relies upon adequate, non-compromised capillary blood flow.If the capillary glucose result is not consistent with the patient's clinical signs and symptoms, glucose testing should be repeated with either an arterial or venous sample on the glucometer or sent to the main laboratory for testing. SPEC TYPE Capillary SUNQUEST 11/25/2019 2:56 AM EDT 11/25/2019 3:00 AM EDT Ana Jean-Baptiste MD LAB BLOOD ORDERABLE S Final Result SUNQUEST * XR Chest 1 View (11/25/2019 1:20 AM EDT) Anatomical Region Laterality Modality Chest Radiographic Juanita ging Narrative 11/25/2019 7:49 AM EDT REQUESTING PHYSICIAN: BEN KLEIN REASON FOR EXAMINATION/PROCEDURE: RAD PDP:Y ??* ??SOB EXAMINATION / PROCEDURE: CHEST 1 VIEW PA/AP PORTABLE Nov 25 2019 - :20; ? CLINICAL INDICATION: Shortness of breath TECHNIQUE: CHEST 1 VIEW PA/A P PORTABLE COMPARISON: 11 hours prior FINDINGS: Left-sided pleural pigtail catheter is unchanged in position. The more posterior proximal catheter appears to be less kinked at the left chest wall. Stable left pleural effusion. Stable volu me loss in the left lower lung. The right lung remains clear. ?? IMPRESSION: Stable left pleural effusion. Pigtail catheter tip is unchanged in position. CRITICAL RESULT: ?? No. COMMUNICATION: Per this written report. ?? Verified by: ??KAMARI HERRERA M.D. on Nov 25 2019 ??7:47A Transcribed by: PSCB on Nov 25 2019 ??7:47A Dictated by: KAMARI HERRERA M.D. on Nov 25 2019 ??7:43A Procedure Note Kamari Herrera - 12/31/2020 REQUESTING PHYSICIAN: BEN KLEIN REASON FOR EXAMINATION/PROCEDURE: RAD PDP:Y * SOB EXAMINATION / PROCEDURE: CHEST 1 VIEW PA/AP PORTABLE Nov 25 2019 - :20; CLINICAL INDICATION: Shortness of breath TECHNIQUE: CHEST 1 VIEW PA/A P PORTABLE COMPARISON: 11 hours prior FINDINGS: Left-sided pleural pigtail catheter is unchanged in position. The more posterior proximal catheter appears to be less kinked at the left chest wall. Stable left pleural effusion. Stable volu me loss in the left lowerlung. The right lung remains clear. IMPRESSION: Stable left pleural effusion. Pigtail catheter tip is unchanged in position. CRITICAL RESULT: No. COMMUNICATION: Per this written report. Verified by: KAMARI HERRERA M.D. on Nov 25 2019 7:47A Transcribed by: PSCB on Nov 25 2019 7:47A Dictated by: KAMARI HERRERA M.D. on Nov 25 2019 7:43A Ben Klein MD IMG XR PROCEDURES Final Result * (ABNORMAL) Glucose Point of Care. (11/24/2019 8:18 PM EDT) POCT Glucose 275(H) 74 - 99 mg/dL SUNQUEST Comment: Accuracy of a glucose result obtained from a capillary whole blood specimen relies upon adequate, non-compromised capillary blood flow.If the capillary glucose result is not consistent with the patient's clinical signs and symptoms, glucose testing should be repeated with either an arterial or venous sample on the glucometer or sent to the main laboratory for testing. SPEC TYPE Capillary SUNQUEST 11/24/2019 8:18 PM EDT 11/24/2019 8:25 PM EDT Ana Jean-Baptiste MD LAB BLOOD ORDERABLE S Final Result Performing Organization Address [facility] Co de Phone Number SUNQUEST * (ABNORMAL) Glucose Point of Care. (11/24/2019 5:30 PM EDT) [facility] POCT Glucose 331(H) 74 - 99 mg/dL SUNQUEST Comment: Accuracy of a glucose result obtained from a capillary whole blood specimen relies upon adequate, non-compromised capillary blood flow.If the capillary glucose result is not consistent with the patient's clinical signs and symptoms, glucose testing should be repeated with either an arterial or venous sample on the glucometer or sent to the main laboratory for testing. SPEC TYPE Capillary SUNQUEST 11/24/2019 5:30 PM EDT 11/24/2019 5:35 PM EDT Ana Jean-Baptiste MD LAB BLOOD ORDERABLE S Final Result Performing Organization Address [facility] Co de Phone Number SUNQUEST * XR Chest 1 View (11/24/2019 1:41 PM EDT) Anatomical Region Laterality Modality Chest Radiographic Juanita ging Narrative 11/24/2019 2:26 PM EDT REQUESTING PHYSICIAN: BEN BUCK REASON FOR EXAMINATION/PROCEDURE: RAD PDP:N ??* ??status post left sided chest tube placement EXAMINATION / PROCEDURE: CHEST 1 VIEW PA/AP PORTABLE Nov 24 2019 - 13:41; ? CLINICAL INDICATION: Status p ost left sided chest tube placement TECHNIQUE: CHEST 1 VIEW PA/AP PORTABLE COMPARISON: 11/24/2019 FINDINGS: Interval placement of left pigtail chest tube. No pneumothorax. Significantly decreased left pleural effusion and atelectasis. D egenerative changes of the shoulders. Lordotic positioning. ?? IMPRESSION: Interval of left chest tube with significantly decreased effusion and atelectasis. No pneumothorax. CRITICAL RESULT: ?? No. COMMUNICATION: Per this written report. By electronically signing this report, I, the attending physician, attest that I have personally reviewed the images/data for the above examination(s) and agree with the final edited report. ?? Verified by: LAVELLE MCCARTHY M.D. on Nov 23 ??2019 ??2:24P Transcribed by: [facility] CENTERJose on Nov 24 2019 ??1:53P Dictated by: RADHA FERRER M.D. on Nov 24 2019 ??1:53P Procedure Note Lavelle Mccarthy - 12/31/2020 REQUESTING PHYSICIAN: BEN BUCK REASON FOR EXAMINATION/PROCEDURE: RAD PDP:N * status post left sided chest tube placement EXAMINATION / PROCEDURE: CHEST 1 VIEW PA/AP PORTABLE Nov 24 2019 - 13:41; CLINICAL INDICATION: Status p ost left sided chest tube placement TECHNIQUE: CHEST 1 VIEW PA/AP PORTABLE COMPARISON: 11/24/2019 FINDINGS: Interval placement of left pigtail chest tube. No pneumothorax. Significantly decreased left pleural effusion and atelectasis. D egenerative changes of the shoulders. Lordotic positioning. IMPRESSION: Interval of left chest tube with significantly decreased effusion and atelectasis. No pneumothorax. CRITICAL RESULT: No. COMMUNICATION: Per this written report. By electronically signing this report, I, the attending physician, attest that I have personally reviewed the images/data for the above examination(s) and agree with the final edited report. Verified by: LAVELLE MCCARTHY M.D. on Nov 24 2019 2:24P Transcribed by: PUMA on Nov 24 2019 1:53P Dictated by: RADHA FERRER M.D. on Nov 24 2019 1:53P Ben Buck MD IMG XR PROCEDURES Final Resul t * Triglycerides, body fluid (11/24/2019 1:29 PM EDT) Triglycerides , Fluid 46 Unit: mg/dL (NOTE) INTERPRETIVE INFORMATION: Triglycerides, Fluid For information on body fluid reference ranges and/or interpretive guidance visit [email or web address] [email or web address]/ Test developed and characteristics determined by [facility]. See Compliance Statement B: [employer]/CS Performed by [facility], [address] [facility] [place] [address] [email or web address], Alex Fuller MD, Lab. Director Rosum Fluid Type Pleural fluid (PLEU) SUNQUEST 11/24/2019 1:29 PM EDT 11/24/2019 1:45 PM EDT Rashi Ortiz APRN LAB REF LAB BLOOD AND FLUID ORD Final Result SUNKAREN * Cholesterol Fluid Battery (11/24/2019 1:29 PM EDT) CHOLESTEROL, FLUID 80 Unit: mg/dL (NOTE) INTERPRETIVE INFORMATION: Cholesterol, Body Fluid For information on body fluid reference ranges and/or interpretive guidance visit [email or web address] [email or web address]/ Test developed and characteristics determined by [facility]. See Compliance Statement B: [employer]/CS Performed by [facility], [address] [facility] [place] [address] [email or web address], Alex Fuller MD, Lab. Director SUNiLost CHOLESTEROL FLUID SOURCE Pleural fluid (PLEU) SUNQUEST 11/24/2019 1:29 PM EDT 11/24/2019 1:45 PM EDT Rashi Ortiz APRN LAB REF LAB BLOOD AND FLUID ORD Final Result Performing Organization Address [facility] de Phone Number SUNQUEST * Manual Differential (11/24/2019 1:29 PM EDT) Neutrophils %, Body fluid 22 % SUNQUEST Lymphocytes %, Body fluid 50 % SUNQUEST Monocytes/Macrop hages %, Body fluid 28 % SUNQUEST Eosinophils %, Body fluid 0 % SUNQUEST Basophils %, Body fluid 0 % SUNQUEST Lining/Mesotheli al Cells % 0 % SUNQUEST Neutrophils Absolute (PMN), Body fluid 135.3 /uL SUNQUEST Lymphocytes Absolute, Body fluid 307.5 /uL SUNQUEST Monocytes/Macrop hages Absolute, Body fluid 172.2 /uL SUNQUEST Eosinophils Absolute, Body fluid 0.0 /uL SUNQUEST Basophils Absolute, Body fluid 0.0 /uL SUNQUEST Lining/Mesotheli al Cells Absolute 0.0 /uL SUNQUEST Comment:COPATH report to [facility] 11/24/2019 1:29 PM EDT 11/24/2019 1:42 PM EDT Rashi Ortiz APRN LAB BLOOD ORDERABLES Final Result Performing Organization Address [facility] de Phone Number SUNQUEST * Body Fluid Cell Count W/O Diff (11/24/2019 1:29 PM EDT) Fluid Type Pleural Fluid SUNQUEST Appearance, Body fluid Cloudy ORANGE SUNQUEST Volume, Body fluid 80.0 cc SUNQUEST Fluid Container Specimen received in miscellaneous container SUNQUEST Red Blood Cell Count, Body fluid 6,000 /uL SUNQUEST Total Nucelated Cell Count 615 /uL SUNQUEST 11/24/2019 1:29 PM EDT 11/24/2019 1:42 PM EDT Rashi Ortiz APRN LAB BODY FLUIDS AND STOOLS ORDERABLES Final Result Performing Organization Address [facility] de Phone Number SUNQUEST * Total Protein, Peritoneal Fluid (11/24/2019 1:29 PM EDT) Total Protein Pleural Fluid 4.4 g/dL SUNQUEST Comment: Total Protein Pleural Fluid Interpretation: No established reference interval. Results should be interpreted in comparison to the concentration in blood and in conjunction with the clinical context. Pleural fluid total protein measurements are used for differentiation of exudates and transudates. Light's criteria can be used to identify most pleural exudative effusions if one or more of the following criteria are present: pleural ziluc-uw-qlgkm protein ratio of >0.5, pleural qbtog-ff-myotg LDH ratio of >0.6, or a pleural fluid LDH activity that is >2/3 the upper limit of a normal serum LDH activity. Light's criteria may misclassify approximately 25% of transudates as exudates in heart failure. These can be identified by calculating a xyvox-lk-rdlbmpp albumin gradient (>1.2 g/dL) and/or a puwxt-cj-xtpip protein gradient (>3.1 g/dL). This test was developed and its performance characteristics determined by [facility]. The U.S. Food and Drug Administration has not approved or cleared this test. However, FDA clearance or approval is not currently required for clinical use. The results are not intended to be used as the sole means for clinical diagnosis or patient management decisions. 11/24/2019 1:29 PM EDT 11/24/2019 1:44 PM EDT Rashi Ortiz APRN LAB BODY FLUIDS AND STOOLS ORDERABLES Final Result SUNQUEST * Lactate Dehydrogenase, Pleural Fluid (11/24/2019 1:29 PM EDT) LDH Pleural Fluid 114 U/L SUNQUEST Comment: LDH Pleural Fluid Interpretation: No established reference interval. Results should be interpreted in comparison to the concentration in blood and in conjunction with the clinical context. Pleural fluid LDH and total protein measurements are used for differentiation of exudates and transudates. Light's criteria can be used to identify most pleural exudative effusions if one or more of the following criteria are present: (1) pleural iqmcw-ud-kxgac protein ratio of >0.5, (2) pleural bzszc-tp-ibdia LDH ratio of >0.6, or (3) a pleural fluid LDH activity that is >2/3 the upper limit of a normal serum LDH activity. Light's criteria may misclassify approximately 25% of transudates as exudates in heart failure. These can be identified by calculating a yoygo-px-sqxacls albumin gradient (>1.2 g/dL) and/or a pbbnx-dz-kyake protein gradient (>3.1 g/dL). This test was developed and its performance characteristics determined by [email or web address]. The U.S. Food and Drug Administration has not approved or cleared this test. However, FDA clearance or approval is not currently required for clinical use. The results are not intended to be used as the sole means for clinical diagnosis or patient management decisions. 11/24/2019 1:29 PM EDT 11/24/2019 1:44 PM EDT us Rashi Ortiz APRN LAB BODY FLUIDS AND STOOLS ORDERABLES Final Result Performing Organization Address [facility] de Phone Number SUNQUEST * Glucose, Pleural Fluid (11/24/2019 1:29 PM EDT) Glucose, Fluid 296 mg/dL SUNQUEST Comment: Glucose Pleural Fluid Interpretation: No established reference interval. Results should be interpreted in comparison to the concentration in blood and in conjunction with the clinical context. Normal pleural fluid glucose is similar to serum concentrations. Pleural fluid transudates and most exudates usually have glucose concentrations of >60 mg/dL. Pleural fluid exudates with glucose concentrations <60 mg/dL have been associated with conditions such as para-pneumonic effusion, tuberculosis, malignancy, empyema, and/or rheumatoid disease. This test was developed and its performance characteristics determined by [facility]. The U.S. Food and Drug Administration has not approved or cleared this test. However, FDA clearance or approval is not currently required for clinical use. The results are not intended to be used as the sole means for clinical diagnosis or patient management decisions. 11/24/2019 1:29 PM EDT 11/24/2019 1:44 PM EDT us Rashi Ortiz APRN LAB BODY FLUIDS AND STOOLS ORDERABLES Final Result Performing Organization Address [facility] Co de Phone Number SUNQUEST * Albumin, Pleural Fluid (11/24/2019 1:29 PM EDT) Albumin Pleural 1.4 g/dL SUNQUEST Comment: Albumin Pleural Fluid Interpretation: No established reference interval. Results should be interpreted in comparison to the concentration in blood and in conjunction with the clinical context. Routine measurement of albumin adds little to distinguishing transudates from exudates. Classification is improved by comparing total protein and lactate dehydrogenase in pleural fluid with a simultaneously-collected blood sample. This test was developed and its performance characteristics determined by [facility]. The U.S. Food and Drug Administration has not approved or cleared this test. However, FDA clearance or approval is not currently required for clinical use. The results are not intended to be used as the sole means for clinical diagnosis or patient management decisions. 11/24/2019 1:29 PM EDT 11/24/2019 1:44 PM EDT Rashi Ortiz APRN LAB BODY FLUIDS AND STOOLS ORDERABLES Final Result SUNQUEST * pH, pleural fluid (11/24/2019 1:29 PM EDT) Fluid PH 7.34 Normal pleural fluid has a pH of 7.60 to 7.66 Transudate pleural effusion has a pH of 7.45 to 7.55 Exudate pleural effusion has a pH of 7.30 to 7.40 In patients with a parapneumonic pleural effusion, . . . pH <7.2 indicates advance disease and a need for tube drainage . . . pH >7.2 indicates antibiotic therapy alone is probably sufficient In patients with a malignant pleural effusion, . . . pH <7.3 indicates reduced survival, and is a contraindication for pleurodesis . This test was developed and its performance characteristics determined by the [email or web address]. Pleural pH is measured by potentiometry using a blood gas analyzer. It has not been approved by the US Food and Drug Administration. This test is used for clinical purposes and should not be regarded as investigational or for research. This laboratory is certified under the Clinical Laboratory Improvement Amendment of 1988 (CLIA 88) as qualified to perform high complexity clinical laboratory testing. SUNQUEST pH, Fluid Type Pleural fluid (PLEU) SUNQUEST 11/24/2019 1:29 PM EDT 11/24/2019 1:36 PM EDT Rashi Ortiz APRN LAB BODY FLUIDS AND STOOLS ORDERABLES Final Result Performing Organization Address [facility] de Phone Number JONNY * Blood Culture (Aerobic/Anaerobet Set) (11/24/2019 1:29 PM EDT) 11/24/2019 1:29 PM EDT 11/24/2019 1:38 PM EDT Narrative SUNQUEST - 11/02/2020 11:35 AM EST SQ ACC. NUMBER ?[id number] SPECIMEN DESCRIPTION: ?PLEURAL FLUID SPECIAL REQUESTS: ?NONE CULTURE: ? NO GROWTH DAY 5. REPORT STATUS: ? FINAL 11/30/2019 Rashi Oritz APRN LAB MICROBIOLOGY - GENERAL ORDERABLES Final Result Performing Organization Address [facility] de Phone Number JONNY * Mycological Culture, Sterile Body Fluid (NOT CSF) and STEVE (11/24/2019 1:29 PM EDT) 11/24/2019 1:29 PM EDT 11/24/2019 2:05 PM EDT Narrative SUNQUEST - 11/02/2020 11:35 AM EST SQ ACC. NUMBER ?[id number] SPECIMEN DESCRIPTION: ?PLEURAL FLUID SPECIAL REQUESTS: ?NONE SPECIMEN CONTAINER INFO: ? ORDER PROCESSED. CULTURE: ? NO FUNGAL GROWTH AT 3 WEEKS REPORT STATUS: ? FINAL 12/16/2019 Rashi Ortiz APRN LAB MICROBIOLOGY - GENERAL ORDERABLES Final Result Performing Organization Address [facility] de Phone Number SUNQUEST * STEVE, FLUID DC (11/24/2019 1:29 PM EDT) 11/24/2019 1:29 PM EDT 11/24/2019 2:05 PM EDT Narrative SUNQUEST - 11/02/2020 11:35 AM EST SQ ACC. NUMBER ?[id number] SPECIMEN DESCRIPTION: ?PLEURAL FLUID SPECIAL REQUESTS: ?NONE STEVE FLUID ?NO FUNGAL ELEMENTS OBSERVED REPORT STATUS: ? FINAL [id number] Rashi Ortiz APRN LAB BLOOD ORDERABLES Final Result Performing Organization Address [facility] de Phone Number SUNQUEST * Gram stain (11/24/2019 1:29 PM EDT) 11/24/2019 1:2 9 PM EDT 11/24/2019 2:05 PM EDT Narrative SUNQUEST - 11/02/2020 11:35 AM EST SQ ACC. NUMBER ?[id number] SPECIMEN DESCRIPTION: ?PLEURAL FLUID SPECIAL REQUESTS: ?NONE GRAM STAIN ? NO ORGANISMS SEEN ? NUMEROUS POLYMORPHONUCLEAR WHITE BLOOD CELLS REPORT STATUS: ? FINAL 11/28/2019 Rashi Ortiz APRN LAB MICROBIOLOGY - GENERAL ORDERABLES Final Result Performing Organization Address [facility] de Phone Number SUNQUEST * Body Fluid Culture and Gram Stain (11/24/2019 1:29 PM EDT) 11/24/2019 1:29 PM EDT 11/24/2019 2:05 PM EDT Narrative SUNQUEST - 11/02/2020 11:35 AM EST SQ ACC. NUMBER ?[id number] SPECIMEN DESCRIPTION: ?PLEURAL FLUID SPECIAL REQUESTS: ?NONE QUANTITATION: ?NOT APPLICABLE CULTURE: ? NO GROWTH DAY 4. REPORT STATUS: ? FINAL 11/28/2019 Rashi Cisse Aura MAURER LAB MICROBIOLOGY - GENERAL ORDERABLES Final Result Performing Organization Address [facility] de Phone Number SUNQUEST * AFB stain (11/24/2019 1:29 PM EDT) 11/24/2019 1:29 PM EDT 11/24/2019 2:05 PM EDT Narrative SUNQUEST - 11/02/2020 11:35 AM EST SQ ACC. NUMBER ?[id number] SPECIMEN DESCRIPTION: ?PLEURAL FLUID SPECIAL REQUESTS: ?NONE ACID FAST STAIN ?NO AFB SEEN REPORT STATUS: ? FINAL [id number] Rashi Ortiz APRN LAB MICROBIOLOGY - GENERAL ORDERABLES Final Result Performing Organization Address [facility] de Phone Number SUNQUEST * AFB Culture, Non Respiratory Source and Acid Fast Stain (11/24/2019 1:29 PM EDT) 11/24/2019 1:29 PM EDT 11/24/2019 2:05 PM EDT Narrative SUNQUEST - 11/02/2020 11:35 AM EST SQ ACC. NUMBER ?[id number] SPECIMEN DESCRIPTION: ?PLEURAL FLUID SPECIAL REQUESTS: ?NONE CULTURE: ? NO ACID FAST BACILLI ISOLATED AT 6 WEEKS REPORT STATUS: ? FINAL [id number] Rashi Ortiz APRN LAB MICROBIOLOGY - GENERAL ORDERABLES Final Result Performing Organization Address [facility] Phone Number SUNQUEST * (ABNORMAL) Glucose Point of Care. (11/24/2019 1:19 PM EDT) POCT Glucose 231(H) 74 - 99 mg/dL SUNQUEST Comment: Accuracy of a glucose result obtained from a capillary whole blood specimen relies upon adequate, non-compromised capillary blood flow.If the capillary glucose result is not consistent with the patient's clinical signs and symptoms, glucose testing should be repeated with either an arterial or venous sample on the glucometer or sent to the main laboratory for testing. SPEC TYPE Capillary SUNQUEST 11/24/2019 1:19 PM EDT 11/24/2019 1:30 PM EDT Ana Jean-Baptiste MD LAB BLOOD ORDERABLE S Final Result Performing Organization Address [facility] Phone Number SUNQUEST * (ABNORMAL) Glucose Point of Care. (11/24/2019 8:07 AM EDT) POCT Glucose 217(H) 74 - 99 mg/dL SUNQUEST Comment: Accuracy of a glucose result obtained from a capillary whole blood specimen relies upon adequate, non-compromised capillary blood flow.If the capillary glucose result is not consistent with the patient's clinical signs and symptoms, glucose testing should be repeated with either an arterial or venous sample on the glucometer or sent to the main laboratory for testing. SPEC TYPE Capillary SUNQUEST 11/24/2019 8:07 AM EDT 11/24/2019 8:10 AM EDT Ana Jean-Baptiste MD LAB BLOOD ORDERABLE S Final Result SUNQUEST * (ABNORMAL) Renal Function Panel, Plasma (11/24/2019 4:55 AM EDT) Glucose, Plasma 264(H) 74 - 99 mg/dL SUNQUEST BUN, Plasma 49(H) 8 - 23 mg/dL SUNQUEST Creatinine, Plasma 1.24(H) 0.60 - 1.10 mg/dL SUNQUEST BUN/Creatinine Ratio 40(H) 8 - 20 SUNQUEST Sodium, Plasma 135(L) 136 - 145 mmol/L SUNQUEST Potassium, Plasma 4.8 3.7 - 4.8 mmol/L SUNQUEST Chloride, Plasma 92(L) 97 - 107 mmol/L SUNQUEST CO2, Plasma 29 22 - 29 mmol/L SUNQUEST Anion Gap 14 6 - 16 mmol/L SUNQUEST Calcium, Plasma 9.6 8.9 - 10.2 mg/dL SUNQUEST Phosphorus, Plasma 5.1(H) 2.5 - 4.5 mg/dL SUNQUEST Albumin, Plasma 1.6(L) 3.3 - 4.6 g/dL SUNQUEST eGFR 43 SEE NOTE SUNQUEST eGFR, if AFR/AM 52(L) >60 SEE NOTE SUNQUEST Comment: (NOTE) eGFR = estimated GFR; eGFR units = mL/min/1.73 sq meters Chronic Kidney Disease is considered if eGFR <60 mL/min/1.73 sq meters Kidney failure is considered if eGFR is <15 mL/min/1.73 sq meters. eGFR assumes steady state plasma creatinine concentration; not applicable if renal function is rapidly changing or patient is on dialysis. 11/24/2019 4:55 AM EDT 11/24/2019 5:12 AM EDT us Deng Brumfield [employer] LAB BLOOD ORDERABLES Fadia l Result SUNQUEST * Magnesium, Plasma (11/24/2019 4:55 AM EDT) Magnesium, Plasma 2.3 1.9 - 2.4 mg/dL SUNQUEST 11/24/2019 4:55 AM EDT 11/24/2019 5:12 AM EDT Deng Brumfield [employer] LAB BLOOD ORDERABLES Fadia ramirez Result Performing Organization Address [facility] de Phone Number SUNQUEST * (ABNORMAL) C-Reactive Protein, Plasma (11/24/2019 4:55 AM EDT) CRP 30.6(H) 0 - 0.9 mg/dL SUNQUEST Comment: This CRP test is appropriate for assessment of infection, systemic inflammation or tissue injury. It is not appropriate for cardiovascular disease risk assessment which requires a more sensitive assay (high sensitivity CRP). 11/24/2019 4:55 AM EDT 11/24/2019 5:12 AM EDT Deng Brumfield [employer] LAB BLOOD ORDERABLES Fadia l Result Performing Organization Address [facility] de Phone Number SUNQUEST * (ABNORMAL) CBC W/O Differential (11/24/2019 4:55 AM EDT) WBC Count 17.01(H) 3.7 - 10.3 k/uL SUNQUEST RBC Count 3.37(L) 3.9 - 5.2 M/uL SUNQUEST HGB 9.0(L) 11.2 - 15.7 g/dL SUNQUEST HCT 30.8(L) 34 - 45 % SUNQUEST Platelet Count 553(H) 155 - 369 k/uL SUNQUEST MCV 91 79 - 98 fL SUNQUEST MCH 26.7 26 - 32 pg SUNQUEST MCHC 29.2(L) 30.7 - 35.5 g/dL SUNQUEST RDW 16.9(H) 12.4 - 14.9 % SUNQUEST MPV 9.1 8.8 - 12.5 fL SUNQUEST NRBC COUNT 0.0 0 % SUNQUEST 11/24/2019 4:55 AM EDT 11/24/2019 5:11 AM EDT Deng Brumfield [employer] LAB BLOOD ORDERABLES Fadia ramirez Result Performing Organization Address [facility]/ZIP Co de Phone Number SUNQUEST * (ABNORMAL) WBC Differential (11/24/2019 4:55 AM EDT) Differential Type AUTOMATED SUNQUEST Neutrophils % 90 % SUNQUEST Lymphocytes 6 % SUNQUEST Monocytes 3 % SUNQUEST Eosinophils 0 % SUNQUEST Basophils 0 % SUNQUEST Immature Granulocytes % 1 % SUNQUEST ABS Neutrophil 15.17(H) 1.6 - 6.1 k/uL SUNQUEST ABS Lymphocyte 1.09(L) 1.2 - 3.9 k/uL SUNQUEST ABS Monocyte 0.52 0.3 - 0.9 k/uL SUNQUEST ABS Eosinophil 0.00 0.0 - 0.5 k/uL SUNQUEST ABS Basophil 0.03 0.0 - 0.1 k/uL SUNQUEST Immature Granulocyte Absolute 0.20(H) 0 - 0.06 k/uL SUNQUEST 11/24/2019 4:55 AM EDT 11/24/2019 5:11 AM EDT Narrative SUNQUEST - 11/24/2019 5:20 AM EDT Therapeutic decision making should be based on absolute values, rather than percentages. Therapeutic decision making should be based on absolute values, rather than percentages. Therapeutic decision making should be based on absolute values, rather than percentages. Therapeutic decision making should be based on absolute values, rather than percentages. Deng Brumfield [employer] LAB BLOOD ORDERABLES Fadia ramirez Result SUNQUEST * XR Chest 1 View (11/24/2019 12:33 AM EDT) Anatomical Region Laterality Modality Chest Radiographic Juanita ging Narrative 11/24/2019 7:10 AM EDT REQUESTING PHYSICIAN: BEN BUCK REASON FOR EXAMINATION/PROCEDURE: RAD PDP:N ??* ??evaluate pleural effusion EXAMINATION / PROCEDURE: CHEST 1 VIEW PA/AP PORTABLE Nov 24 2019 - 00:33; ? CLINICAL INDICATION: RAD PDP:N ??* ??evaluate pleur al effusion TECHNIQUE: CHEST 1 VIEW PA/AP PORTABLE COMPARISON: October 15, 2019 FINDINGS: The left pleural effusion is now large, with only a small amount of aerated lung at the left apex. Pulmonary vascular congestion without edema. N o focal consolidation is appreciated in the aerated lung. No pneumothorax. ?? IMPRESSION: Large left effusion. CRITICAL RESULT: ?? No. COMMUNICATION: Per this written report. ?? Verified by: LISSA LOPEZ M.D. on Nov 24 2019 ??7:0 9A Transcribed by: PSCB on Nov 24 2019 ??7:09A Dictated by: LISSA LOPEZ M.D. on Nov 24 2019 ??7:08A Procedure Note Lissa Lopez - 12/31/2020 REQUESTING PHYSICIAN: BEN BUCK REASON FOR EXAMINATION/PROCEDURE: RAD PDP:N * evaluate pleural effusion EXAMINATION / PROCEDURE: CHEST 1 VIEW PA/AP PORTABLE Nov 24 2019 - 00:33; CLINICAL INDICATION: RAD PDP:N * evaluate pleur al effusion TECHNIQUE: CHEST 1 VIEW PA/AP PORTABLE COMPARISON: October 15, 2019 FINDINGS: The left pleural effusion is now large, with only a small amount of aerated lung at the left apex. Pulmonary vascular congestion without edema. N o focal consolidation is appreciated in the aerated lung. No pneumothorax. IMPRESSION: Large left effusion. CRITICAL RESULT: No. COMMUNICATION: Per this written report. Verified by: LISSA LOPEZ M.D. on Nov 24 2019 7:0 9A Transcribed by: PSCB on Nov 24 2019 7:09A Dictated by: LISSA LOPEZ M.D. on Nov 24 2019 7:08A us Ben Buck MD IMG XR PROCEDURES Final Resul t * Cytology (11/24/2019 12:00 AM EDT) AP Specimen 11/24/2019 11/24/2019 3: 05 PM EDT Narrative SUNQUEST - 11/25/2019 11:40 AM EDT [facility] ?MR #: [id number] [facility] ?[address] [place], [place] ??[id number] ?1950 (Age: 69) ?? FW ?Collect Date: 11/24/2019 00:00 ?Receipt Date: 11/24/2019 15:05 ?Page 1 DEPARTMENT OF PATHOLOGY AND ??LABORATORY MEDICINE CYTOPATHOLOGY REPORT ? Email: [email or web address] ?[phone] ? ATTENDING MD/Practitioner: ??Pavel Buck MD ? Service: [facility] ? Location: [facility] OTHER ??MD(S): Jayne Ortiz APRN ? Reported: 11/25/2019 11:40 ? Collected: 11/24/2019 00:00 DIAGNOSIS A. ??PLEURAL FLUID (CONCENTRATE AND CELL BLOCK): ?NO EVIDENCE OF MALIGNANCY. ? Electronically Signed Out ? Romina Nicholas CT ([facility]) Jaron Noel M.D. PROCEDURES/ADDENDA GROSS DESCRIPTION: 120 ml's bloody fluid CLINICAL INFORMATION: CLINICAL DIAGNOSIS COPD / loculated left pleural effusion / possible left sided pneumonia / CRISTINE / A-fib / retroperitoneal hematoma / type 2 diabetes / HTN / HLD SPECIMEN DESCRIPTION: A: ??PLEURAL FLUID ? THIN PREP PROCESS CELLULAR ENHANCEMENT, CELL BLOCK F ICD: J44.9 ? Chronic obstructive pulmonary disease, unspecified J90 ? Pleural effusion, not elsewhere classified N17.9 ? Acute kidney failure, unspecified I48.20 ? Chronic atrial fibrillation, unspecified F: A; 82535, 18714, 50260 SNOMED CODES: A; [id number] A resident has participated in this service. ??A pathologist has performed and is responsible for the reported pathologic evaluation. us Ben Buck MD LAB PATHOLOGY ORDERABLES Fadia ramirez Result SUNQUEST * (ABNORMAL) Glucose Point of Care. (11/23/2019 9:01 PM EDT) POCT Glucose 213(H) 74 - 99 mg/dL SUNQUEST Comment: Accuracy of a glucose result obtained from a capillary whole blood specimen relies upon adequate, non-compromised capillary blood flow.If the capillary glucose result is not consistent with the patient's clinical signs and symptoms, glucose testing should be repeated with either an arterial or venous sample on the glucometer or sent to the main laboratory for testing. SPEC TYPE Capillary SUNQUEST 11/23/2019 9:01 PM EDT 11/23/2019 9:05 PM EDT Ana Jean-Baptiste MD LAB BLOOD ORDERABLE S Final Result Performing Organization Address [facility] Co de Phone Number SUNQUEST * (ABNORMAL) Hemoglobin A1c (11/23/2019 4:17 PM EDT) Hemoglobin A1c 6.8(H) 4.7 - 6.0 % SUNQUEST Comment: Glycohemoglobin Reference Range, 0 years and up: ??4.7 to 6.0% . HA1C Interpretive Data: Diagnosis of Diabetes: Diabetic > or = 6.5% Pre-diabetic 5.7 to 6.4% Non-diabetic < or = 5.6% . Glycemic Targets for Type I and Type II Diabetics: Non- Adults <7.0% Adults <6.0% Children and Adolescents <7.5% . Source: ??[place] [employer] Association. Standards of medical care in diabetes, 2017. Diabetes Care.2017:40 (suppl 1):S1-S135. . HbA1c assay performed by an ion-exchange chromatography method that is certified traceable to the DCCT. 11/23/2019 4:17 PM EDT 11/23/2019 4:54 PM EDT Heriberto Lance MD LAB BLOOD ORDERABLES Final R esult Performing Organization Address [facility] Co de Phone Number SUNQUEST * (ABNORMAL) Glucose Point of Care. (11/23/2019 4:16 PM EDT) POCT Glucose 179(H) 74 - 99 mg/dL SUNQUEST Comment: Accuracy of a glucose result obtained from a capillary whole blood specimen relies upon adequate, non-compromised capillary blood flow.If the capillary glucose result is not consistent with the patient's clinical signs and symptoms, glucose testing should be repeated with either an arterial or venous sample on the glucometer or sent to the main laboratory for testing. SPEC TYPE Capillary SUNQUEST 11/23/2019 4:16 PM EDT 11/23/2019 4:20 PM EDT us Ana Jean-Baptiste MD LAB BLOOD ORDERABLE S Final Result SUNQUEST * (ABNORMAL) Hemoglobin A1c (11/23/2019 2:45 [...] <6.0% Children and Adolescents <7.5% . Source: ??[place] [employer] Association. Standards of medical care in diabetes, 2017. Diabetes Care.2017:40 (suppl 1):S1-S135. . HbA1c assay performed by an ion-exchange chromatography method that is certified traceable to the DCCT. 11/23/2019 2:45 PM EDT 11/23/2019 2:59 PM EDT us Deng Brumfield APRN LAB BLOOD ORDERABLES Fadia l Result SUNQUEST * (ABNORMAL) Potassium, Plasma (11/23/2019 2:44 PM EDT) Potassium, Plasma 5.5(H) 3.7 - 4.8 mmol/L SUNQUEST 11/23/2019 2:44 PM EDT 11/23/2019 2:53 PM EDT us Deng Brumfield [employer] LAB BLOOD ORDERABLES Fadia l Result Performing Organization Address [facility] de Phone Number SUNQUEST * (ABNORMAL) Glucose Point of Care. (11/23/2019 10:53 AM EDT) [facility] Signature POCT Glucose 198(H) 74 - 99 mg/dL SUNQUEST Comment: Accuracy of a glucose result obtained from a capillary whole blood specimen relies upon adequate, non-compromised capillary blood flow.If the capillary glucose result is not consistent with the patient's clinical signs and symptoms, glucose testing should be repeated with either an arterial or venous sample on the glucometer or sent to the main laboratory for testing. SPEC TYPE Capillary SUNQUEST 11/23/2019 10:5 3 AM EDT 11/23/2019 10:55 AM EDT Ana Jean-Baptiste MD LAB BLOOD ORDERABLE S Final Result Performing Organization Address [facility] de Phone Number SUNQUEST * Blood Culture (Aerobic/Anaerobet Set) (11/23/2019 10:52 AM EDT) 11/23/2019 10:5 2 AM EDT 11/23/2019 11:02 AM EDT Narrative SUNQUEST - 11/02/2020 11:35 AM EST SQ ACC. NUMBER ?[id number] SPECIMEN DESCRIPTION: ?BLOOD LEFT HAND SPECIAL REQUESTS: ?LOW BLOOD VOLUME SUBMITTED, RESULTS MAY BE ?COMPROMISED CULTURE: ? NO GROWTH DAY 5. REPORT STATUS: ? FINAL 11/29/2019 Mark Larry MD LAB MICROBIOLOGY - GENER AL ORDERABLES Final Result Performing Organization Address [facility] de Phone Number SUNQUEST * Blood Culture (Aerobic/Anaerobet Set) (11/23/2019 10:52 AM EDT) 11/23/2019 10:5 2 AM EDT 11/23/2019 11:00 AM EDT Narrative SUNQUEST - 11/02/2020 11:35 AM EST SQ ACC. NUMBER ?[id number] SPECIMEN DESCRIPTION: ?BLOOD LEFT AC SPECIAL REQUESTS: ?NONE CULTURE: ? NO GROWTH DAY 5. REPORT STATUS: ? FINAL 11/29/2019 Mark Larry MD LAB MICROBIOLOGY - GENER AL ORDERABLES Final Result Performing Organization Address [facility] Phone Number SUNQUEST * (ABNORMAL) Potassium, Plasma (11/23/2019 10:51 AM EDT) Potassium, Plasma 5.4(H) 3.7 - 4.8 mmol/L SUNQUEST 11/23/2019 10:5 1 AM EDT 11/23/2019 10:57 AM EDT Mark Larry MD LAB BLOOD ORDERABLES Fin al Result Performing Organization Address [facility] de Phone Number SUNQUEST * (ABNORMAL) APTT (11/23/2019 10:21 AM EDT) aPTT 38(H) 25 - 36 sec SUNQUEST 11/23/2019 10:2 1 AM EDT 11/23/2019 10:25 AM EDT Mark Larry MD LAB BLOOD ORDERABLES Fin al Result Performing Organization Address [facility] de Phone Number SUNQUEST * (ABNORMAL) Prothrombin Time/INR (11/23/2019 10:21 AM EDT) Prothrombin Time 15.0(H) 11.9 - 14.4 sec SUNQUEST INR 1.2(H) 0.9 - 1.1 SUNQUEST Comment: (NOTE) OPTIMAL INR RANGES FOR PATIENT ON ORAL ANTICOAGULANT THERAPY Prevention of venous thromboembolism ?INR 2.0 to 3.0 In patients with heart disease: ?Atrial fibrillation ?INR 2.0 to 3.0 ?Valvular heart disease ? INR 2.0 to 3.0 ?Tissue heart valves ?INR 2.0 to 3.0 ?Mechanical prosthetic valves ? INR 2.5 to 3.5 ?Prevention of recurrent OH ? INR 2.5 to 3.5 11/23/2019 10:2 1 AM EDT 11/23/2019 10:25 AM EDT Mark Larry MD LAB BLOOD ORDERABLES Fin al Result Performing Organization Address [facility] de Phone Number SUNQUEST * EXTRA SPECIMEN (11/23/2019 10:14 AM EDT) Extra URINE. STORED IN LAB REFRIGERATED 24 HOURS. SUNQUEST 11/23/2019 10:1 4 AM EDT 11/23/2019 10:14 AM EDT Mark Leslie MD LAB BLOOD ORDERABLES Final Result Performing Organization Address [facility] de Phone Number SUNQUEST * Urine Culture (11/23/2019 10:09 AM EDT) 11/23/2019 10:0 9 AM EDT 11/23/2019 10:57 AM EDT Narrative SUNQUEST - 11/02/2020 11:35 AM EST SQ ACC. NUMBER ?[id number] SPECIMEN DESCRIPTION: ?CATHETERIZED URINE SPECIMEN CONTAINER INFO: ? SALVADOR TOP COLLECTION TUBE FOR URINE CULTURE: ? 1,000 CFU/ml NORMAL UROGENITAL JOSÉ MIGUEL REPORT STATUS: ? FINAL [id number] Ronaldo Jones MD LAB MICROBIOLOGY - GENERAL O RDERABLES Final Result Performing Organization Address [facility] de Phone Number SUNQUEST * Urinalysis, manual with scope (11/23/2019 10:08 AM EDT) WBC, Urine 16-30 0 - 5 /HPF SUNQUEST RBC, Urine 4-10 0 - 3 /HPF SUNQUEST Squamous Epithelial 0-5 0 - 5 /HPF SUNQUEST Hyaline Casts 0-8 0 - 8 /LPF SUNQUEST Bacteria, Urine Present /HPF SUNQUEST 11/23/2019 10:0 8 AM EDT 11/23/2019 10:13 AM EDT Ronaldo Jones MD LAB URINE ORDERABLES Final R esult Performing Organization Address [facility] de Phone Number SUNQUEST * (ABNORMAL) Urinalysis with reflex microscopic (11/23/2019 10:08 AM EDT) Color, Urine DARK YELLOW SUNQUEST Clarity, Urine Cloudy SUNQUEST Spec [place], Urine 1.028 1.001 - 1.030 SUNQUEST pH, Urine 5.0 4.5 - 8.0 SUNQUEST Protein, Urine 100(A) NEG mg/dL SUNQUEST Glucose, Urine NEGATIVE NEG mg/dL SUNQUEST Ketones, Urine TRACE(A) NEG mg/dL SUNQUEST Blood, Urine Moderate(A) NEG SUNQUEST Bilirubin, Urine NEGATIVE NEG SUNQUEST Urobilinogen, Urine > OR = 1.0 0.2 - 1.0 EU/dL SUNQUEST Leukocytes, Urine SMALL(A) NEG SUNQUEST Nitrite, Urine NEGATIVE NEG SUNQUEST Microscopic Description MICROSCOPIC ANALYSIS INDICATED SUNQUEST 11/23/2019 10:0 8 AM EDT 11/23/2019 10:13 AM EDT us Ronaldo Jones MD LAB URINE ORDERABLES Final R esult Performing Organization Address [facility] Co de Phone Number SUNQUEST * (ABNORMAL) Glucose Point of Care. (11/23/2019 10:00 AM EDT) POCT Glucose 266(H) 74 - 99 mg/dL SUNQUEST Comment: Accuracy of a glucose result obtained from a capillary whole blood specimen relies upon adequate, non-compromised capillary blood flow.If the capillary glucose result is not consistent with the patient's clinical signs and symptoms, glucose testing should be repeated with either an arterial or venous sample on the glucometer or sent to the main laboratory for testing. SPEC TYPE Capillary SUNQUEST 11/23/2019 10:0 0 AM EDT 11/23/2019 10:05 AM EDT Ana Jean-Baptiste MD LAB BLOOD ORDERABLE S Final Result Performing Organization Address [facility] de Phone Number SUNQUEST * CT Abdomen Pelvis wo IV Contrast (11/23/2019 8:48 AM EDT) Anatomical Region Laterality Modality Abdomen, Pelvis Computed Tomogra phy Narrative 11/23/2019 10:19 AM EDT REQUESTING PHYSICIAN: ROSELYN KAUR REASON FOR EXAMINATION/PROCEDURE: RAD PDP:Y ??* ??abd pain, contrast allergy EXAMINATION / PROCEDURE: CT Chest WO IVCON Nov 23 2019 - 08:48; CT Abdomen & Pelvis WO IVCON Nov 23 2019 08:48; ? CLIN ICAL INDICATION: abdominal pain, contrast allergy TECHNIQUE: Imaging of the chest abdomen and pelvis was performed from thoracic inlet through pubic symphysis, using spiral technique, without administration of IV contrast. ??Reformatted imag es in the coronal and sagittal planes were generated from the axial data set to facilitate diagnostic accuracy. Total DLP (Dose-Length Product): 1247.41 mGy.cm. Please note: The reported value represents the total of one or more individual comp onents during the CT acquisition on this date and at this time, and as such, the same value may appear in more than one CT report depending on the interpreting/reporting physicians. COMPARISON: Outside hospital CTA abdomen and pelvis 0 CT high resolution chest 02/04/2017 FINDINGS: Chest: Lack of IV contrast limits evaluation of thoracic organs and vessels. Aorta/Vessels: Thoracic aorta is within normal limits given the lack of IV contrast. Aortic atherosclerotic calcif ications. Pleural/Pericardial Space: Large left pleural effusion. Small right pleural effusion. No pneumothorax. ??No pericardial effusion. Lymph Nodes: No lymphadenopathy within the chest. Lungs: Near complete collapse of the left lung with ??perihilar focal airspace opacities, air bronchograms and overlying atelectasis. Small portion of the left upper lobe remains aerated. No focal lung consolidation within the right lung. Mild dependent basilar atelectasis within the right lung. ?? Mediastinum: Unremarkable noncontrast appearance. Chest Wall: No chest wall hematoma or contusion. Bones: No acute fracture within the chest. Moderate degenerative changes of the thoracic spine. Abdomen: Lack of IV contrast limits anna luation of abdominal and pelvic organs. Liver/Gallbladder/Biliary System: The liver demonstrates no focal lesion. Cholecystectomy. No intra- or extra-hepatic biliary ductal dilatation. Spleen: Unremarkable noncontrast appearance. Pancreas: Unremarkable noncontrast contrast. Adrenals: The adrenals are morphologically unremarkable. Kidneys: Fluid collection surrounding the left kidney as described below. The right kidney is normal with redemonstration of 2 cm cyst. No renal or u reteral calculi. No hydronephrosis. Bowel/Mesentery: The small bowel loops are not dilated. The large bowel loops are not dilated. ??The appendix is visualized and normal. Vessels/Lymph Nodes: Aortic atherosclerosis calcifications. No lympha denopathy within the abdomen or pelvis. Fluid survey: Large left retroperitoneal fluid collection engulfing and obscuring the kidney. It measures approximately 15.2 x 11.8 x 11.4 cm. ?? There is air located posterior and inferior to the left kidn ey. This correlates with previously noted retroperitoneal hematoma from prior outside CT on 10/12/2019. Air collections are most likely related to superimposed infection in a pre-existing hematoma. There is also an increase in fluid more posteri or and inferior to this previous collection. The additional hematoma obscures the left paraspinal musculature and psoas muscle and involves the left iliac muscle . Surgical coils associated with previous embolization within the anterior medial ??portion of the kidney. Pelvis: The pelvic viscera are unremarkable. Body Wall: Density along the deep soft tissue of the left flank may be related to hematoma or edema Bones: No acute fracture. Degenerative changes with disc space narrowi ng of the lumbar spine, greatest at L5 and S1. ?? IMPRESSION: Chest: Near complete collapse of the left lung with perihilar focal airspace opacities, air bronchograms and large pleural effusion. Abdomen/pelvis: Large left retroperitoneal ??hematoma which engulfs the kidney has increased compared to the previous CT scan from October. There is new hematoma involving the left paraspinal musculature, psoas muscle and iliac muscle. There is increased density within the hematoma assoc iated with acute or subacute hemorrhage. Within the hematoma there is air located posterior inferior to the right kidney . This is concerning for infection within the hematoma. ??Surrounding fat stranding. Lack of IV contrast limits evaluation ??for active bleeding. CRITICAL RESULT: ?? No. COMMUNICATION: These findings were discussed with Brien Skinner MD on 11/23/2019 9:24 AM by Usha Hdez, DO ??via phone. By electronically signing this report, I, the attending physician, at test that I have personally reviewed the images/data for the above examination(s) and agree with the final edited report. ?? Verified by: ROSANA ROYAL M.D. on Nov 23 2019 10:17A Transcribed by: [facility] on Nov 23 2019 ??8:50A Dictated by: Soraida HDEZ D.O. on Nov 23 2019 ??8:50A Procedure Note Rosana Royal - 12/31/2020 REQUESTING PHYSICIAN: ROSELYN KAUR REASON FOR EXAMINATION/PROCEDURE: RAD PDP:Y * abd pain, contrast allergy EXAMINATION / PROCEDURE: CT Chest WO IVCON Nov 23 2019 - 08:48; CT Abdomen & Pelvis WO IVCON Nov 23 2019 08:48; CLIN ICAL INDICATION: abdominal pain, contrast allergy TECHNIQUE: Imaging of the chest abdomen and pelvis was performed from thoracic inlet through pubic symphysis, using spiral technique, without administration of IV contrast. Reformatted imag es in the coronal and sagittal planes were generated from the axial data set to facilitate diagnosticaccuracy. Total DLP (Dose-Length Product): 1247.41 mGy.cm. Please note: The reported value represents the total of one or more individual comp onents during the CT acquisition on this date and at this time, and as such, the same value may appear in more than one CT report depending on the interpreting/reporting physicians. COMPARISON: Outside hospital CTA abdomen and pelvis 0 CT high resolution chest 02/04/2017 FINDINGS: Chest: Lack of IV contrast limits evaluation of thoracic organs and vessels. Aorta/Vessels: Thoracic aorta is within normal limits given the lack of IV contrast. Aortic atherosclerotic calcif ications. Pleural/Pericardial Space: Large left pleural effusion. Small right pleural effusion. No pneumothorax. No pericardial effusion. Lymph Nodes: No lymphadenopathy within the chest. Lungs: Near complete collapse of the left lung with perihilar focal airspace opacities, air bronchograms and overlying atelectasis. Small portion of the left upper lobe remains aerated. No focal lung consolidation within the right lung. Mild dependent basilar atelectasis within the right lung. Mediastinum: Unremarkable noncontrast appearance. Chest Wall: No chest wall hematoma or contusion. Bones: No acute fracture within the chest. Moderate degenerative changes of the thoracic spine. Abdomen: Lack of IV contrast limits anna luation of abdominal and pelvic organs. Liver/Gallbladder/Biliary System: The liver demonstrates no focal lesion. Cholecystectomy. No intra- or extra-hepatic biliary ductal dilatation. Spleen: Unremarkable noncontrast appearance. Pancreas: Unremarkable noncontrast contrast. Adrenals: The adrenals are morphologically unremarkable. Kidneys: Fluid collection surrounding the left kidney as described below. The right kidney is normal with redemonstration of 2 cm cyst. No renal or u reteral calculi. No hydronephrosis. Bowel/Mesentery: The small bowel loops are not dilated. The large bowel loops are not dilated. The appendix is visualized and normal. Vessels/Lymph Nodes: Aortic atherosclerosis calcifications. No lympha denopathy within the abdomen or pelvis. Fluid survey: Large left retroperitoneal fluid collection engulfing and obscuring the kidney. It measures approximately 15.2 x 11.8 x 11.4 cm. There is air located posterior and inferior to the left kidn ey. This correlates with previously noted retroperitoneal hematoma from prior outside CT on 10/12/2019. Air collections are most likely related to superimposed infection in a pre-existing hematoma. There is also an increase in fluid more posteri or and inferior to this previous collection. The additional hematoma obscures the left paraspinal musculature and psoas muscle and involves the left iliac muscle . Surgical coils associated with previous embolization within the anterior medial portion of the kidney. Pelvis: The pelvic viscera are unremarkable. Body Wall: Density along the deep soft tissue of the left flank may be related to hematoma or edema Bones: No acute fracture. Degenerative changes with disc space narrowi ng of the lumbar spine, greatest at L5 and S1. IMPRESSION: Chest: Near complete collapse of the left lung with perihilar focal airspace opacities, air bronchograms and large pleural effusion. Abdomen/pelvis: Large left retroperitoneal hematoma which engulfs the kidney has increased compared to the previous CT scan from October. There is new hematoma involving the left paraspinal musculature, psoas muscle and iliac muscle. There is increased density within the hematoma assoc iated with acute or subacute hemorrhage. Within the hematoma there is air located posterior inferior to the right kidney . This is concerning for infection within the hematoma. Surrounding fat stranding. Lack of IV contrast limits evaluation for active bleeding. CRITICAL RESULT: No. COMMUNICATION: These findings were discussed with Brien Skinner MD on 11/23/2019 9:24 AM by Usha Hdez DO via phone. By electronically signing this report, I, the attending physician, at test that I have personally reviewed the images/data for the above examination(s) and agree with the final edited report. Verified by: ROSANA ROYAL M.D. on Nov 23 2019 10:17A Transcribed by: [facility] on Nov 23 2019 8:50A Dictated by: Soraida HDEZ D.O. on Nov 23 2019 8:50A us Roselyn Kaur MD IMG CT PROCEDURES Final Result * CT Chest wo IV Contrast (11/23/2019 8:48 AM EDT) Anatomical Region Laterality Modality Chest Computed Tomogra phy Narrative 11/23/2019 10:19 AM EDT REQUESTING PHYSICIAN: ROSELYN KAUR REASON FOR EXAMINATION/PROCEDURE: RAD PDP:Y ??* ??abd pain, contrast allergy EXAMINATION / PROCEDURE: CT Chest WO IVCON Nov 23 2019 08:48; CT Abdomen & Pelvis WO IVCON Nov 23 2019 08:48; ? CLIN ICAL INDICATION: abdominal pain, contrast allergy TECHNIQUE: Imaging of the chest abdomen and pelvis was performed from thoracic inlet through pubic symphysis, using spiral technique, without administration of IV contrast. ??Reformatted imag es in the coronal and sagittal planes were generated from the axial data set to facilitate diagnostic accuracy. Total DLP (Dose-Length Product): 1247.41 mGy.cm. Please note: The reported value represents the total of one or more individual comp onents during the CT acquisition on this date and at this time, and as such, the same value may appear in more than one CT report depending on the interpreting/reporting physicians. COMPARISON: Outside hospital CTA abdomen and pelvis 0 CT high resolution chest 02/04/2017 FINDINGS: Chest: Lack of IV contrast limits evaluation of thoracic organs and vessels. Aorta/Vessels: Thoracic aorta is within normal limits given the lack of IV contrast. Aortic atherosclerotic calcif ications. Pleural/Pericardial Space: Large left pleural effusion. Small right pleural effusion. No pneumothorax. ??No pericardial effusion. Lymph Nodes: No lymphadenopathy within the chest. Lungs: Near complete collapse of the left lung with ??perihilar focal airspace opacities, air bronchograms and overlying atelectasis. Small portion of the left upper lobe remains aerated. No focal lung consolidation within the right lung. Mild dependent basilar atelectasis within the right lung. ?? Mediastinum: Unremarkable noncontrast appearance. Chest Wall: No chest wall hematoma or contusion. Bones: No acute fracture within the chest. Moderate degenerative changes of the thoracic spine. Abdomen: Lack of IV contrast limits anna luation of abdominal and pelvic organs. Liver/Gallbladder/Biliary System: The liver demonstrates no focal lesion. Cholecystectomy. No intra- or extra-hepatic biliary ductal dilatation. Spleen: Unremarkable noncontrast appearance. Pancreas: Unremarkable noncontrast contrast. Adrenals: The adrenals are morphologically unremarkable. Kidneys: Fluid collection surrounding the left kidney as described below. The right kidney is normal with redemonstration of 2 cm cyst. No renal or u reteral calculi. No hydronephrosis. Bowel/Mesentery: The small bowel loops are not dilated. The large bowel loops are not dilated. ??The appendix is visualized and normal. Vessels/Lymph Nodes: Aortic atherosclerosis calcifications. No lympha denopathy within the abdomen or pelvis. Fluid survey: Large left retroperitoneal fluid collection engulfing and obscuring the kidney. It measures approximately 15.2 x 11.8 x 11.4 cm. ?? There is air located posterior and inferior to the left kidn ey. This correlates with previously noted retroperitoneal hematoma from prior outside CT on 10/12/2019. Air collections are most likely related to superimposed infection in a pre-existing hematoma. There is also an increase in fluid more posteri or and inferior to this previous collection. The additional hematoma obscures the left paraspinal musculature and psoas muscle and involves the left iliac muscle . Surgical coils associated with previous embolization within the anterior medial ??portion of the kidney. Pelvis: The pelvic viscera are unremarkable. Body Wall: Density along the deep soft tissue of the left flank may be related to hematoma or edema Bones: No acute fracture. Degenerative changes with disc space narrowi ng of the lumbar spine, greatest at L5 and S1. ?? IMPRESSION: Chest: Near complete collapse of the left lung with perihilar focal airspace opacities, air bronchograms and large pleural effusion. Abdomen/pelvis: Large left retroperitoneal ??hematoma which engulfs the kidney has increased compared to the previous CT scan from October. There is new hematoma involving the left paraspinal musculature, psoas muscle and iliac muscle. There is increased density within the hematoma assoc iated with acute or subacute hemorrhage. Within the hematoma there is air located posterior inferior to the right kidney . This is concerning for infection within the hematoma. ??Surrounding fat stranding. Lack of IV contrast limits evaluation ??for active bleeding. CRITICAL RESULT: ?? No. COMMUNICATION: These findings were discussed with Brien Skinner MD on 11/23/2019 9:24 AM by Usha dHez, DO ??via phone. By electronically signing this report, I, the attending physician, at test that I have personally reviewed the images/data for the above examination(s) and agree with the final edited report. ?? Verified by: ROSANA ROYAL M.D. on Nov 23 2019 10:17A Transcribed by: [facility] on Nov 23 2019 ??8:50A Dictated by: Soraida HDEZ D.O. on Nov 23 2019 ??8:50A Procedure Note Rosana Royal Diana - 12/31/2020 REQUESTING PHYSICIAN: ROSELYN KAUR REASON FOR EXAMINATION/PROCEDURE: RAD PDP:Y * abd pain, contrast allergy EXAMINATION / PROCEDURE: CT Chest WO IVCON Nov 23 2019 - 08:48; CT Abdomen & Pelvis WO IVCON Nov 23 2019 - :48; CLIN ICAL INDICATION: abdominal pain, contrast allergy TECHNIQUE: Imaging of the chest abdomen and pelvis was performed from thoracic inlet through pubic symphysis, using spiral technique, without administration of IV contrast. Reformatted imag es in the coronal and sagittal planes were generated from the axial data set to facilitate diagnosticaccuracy. Total DLP (Dose-Length Product): 1247.41 mGy.cm. Please note: The reported value represents the total of one or more individual comp onents during the CT acquisition on this date and at this time, and as such, the same value may appear in more than one CT report depending on the interpreting/reporting physicians. COMPARISON: Outside hospital CTA abdomen and pelvis 0 CT high resolution chest 02/04/2017 FINDINGS: Chest: Lack of IV contrast limits evaluation of thoracic organs and vessels. Aorta/Vessels: Thoracic aorta is within normal limits given the lack of IV contrast. Aortic atherosclerotic calcif ications. Pleural/Pericardial Space: Large left pleural effusion. Small right pleural effusion. No pneumothorax. No pericardial effusion. Lymph Nodes: No lymphadenopathy within the chest. Lungs: Near complete collapse of the left lung with perihilar focal airspace opacities, air bronchograms and overlying atelectasis. Small portion of the left upper lobe remains aerated. No focal lung consolidation within the right lung. Mild dependent basilar atelectasis within the right lung. Mediastinum: Unremarkable noncontrast appearance. Chest Wall: No chest wall hematoma or contusion. Bones: No acute fracture within the chest. Moderate degenerative changes of the thoracic spine. Abdomen: Lack of IV contrast limits anna luation of abdominal and pelvic organs. Liver/Gallbladder/Biliary System: The liver demonstrates no focal lesion. Cholecystectomy. No intra- or extra-hepatic biliary ductal dilatation. Spleen: Unremarkable noncontrast appearance. Pancreas: Unremarkable noncontrast contrast. Adrenals: The adrenals are morphologically unremarkable. Kidneys: Fluid collection surrounding the left kidney as described below. The right kidney is normal with redemonstration of 2 cm cyst. No renal or u reteral calculi. No hydronephrosis. Bowel/Mesentery: The small bowel loops are not dilated. The large bowel loops are not dilated. The appendix is visualized and normal. Vessels/Lymph Nodes: Aortic atherosclerosis calcifications. No lympha denopathy within the abdomen or pelvis. Fluid survey: Large left retroperitoneal fluid collection engulfing and obscuring the kidney. It measures approximately 15.2 x 11.8 x 11.4 cm. There is air located posterior and inferior to the left kidn ey. This correlates with previously noted retroperitoneal hematoma from prior outside CT on 10/12/2019. Air collections are most likely related to superimposed infection in a pre-existing hematoma. There is also an increase in fluid more posteri or and inferior to this previous collection. The additional hematoma obscures the left paraspinal musculature and psoas muscle and involves the left iliac muscle . Surgical coils associated with previous embolization within the anterior medial portion of the kidney. Pelvis: The pelvic viscera are unremarkable. Body Wall: Density along the deep soft tissue of the left flank may be related to hematoma or edema Bones: No acute fracture. Degenerative changes with disc space narrowi ng of the lumbar spine, greatest at L5 and S1. IMPRESSION: Chest: Near complete collapse of the left lung with perihilar focal airspace opacities, air bronchograms and large pleural effusion. Abdomen/pelvis: Large left retroperitoneal hematoma which engulfs the kidney has increased compared to the previous CT scan from October. There is new hematoma involving the left paraspinal musculature, psoas muscle and iliac muscle. There is increased density within the hematoma assoc iated with acute or subacute hemorrhage. Within the hematoma there is air located posterior inferior to the right kidney . This is concerning for infection within the hematoma. Surrounding fat stranding. Lack of IV contrast limits evaluation for active bleeding. CRITICAL RESULT: No. COMMUNICATION: These findings were discussed with Brien Skinner MD on 11/23/2019 9:24 AM by Usha Hdez DO via phone. By electronically signing this report, I, the attending physician, at test that I have personally reviewed the images/data for the above examination(s) and agree with the final edited report. Verified by: ROSANA ROYAL M.D. on Nov 23 2019 10:17A Transcribed by: [facility] on Nov 23 2019 8:50A Dictated by: Soraida HDEZ D.O. on Nov 23 2019 8:50A Roselyn Kaur MD IMG CT PROCEDURES Final Result * SARS CoV-2/COVID-19 by PCR (11/23/2019 7:38 AM EDT) SARS CoV2/COVID 19 Specimen Source DUPLICATE ORDER,CREDITED CORRECTED ON 11/22 AT 0739: PREVIOUSLY REPORTED [employer] [facility] SARS CoV2/COVID 19 Result DUPLICATE ORDER,CREDITED [facility] 11/23/2019 7:38 AM EDT 11/23/2019 7:39 AM EDT Ana Jean-Baptiste MD LAB MICROBIOLOGY - GENERAL ORDERABLES Final Result [facility] * (ABNORMAL) Blood gas panel, venous (11/23/2019 7:38 AM EDT) pH, Venous 7.36 7.32 - 7.43 [facility] pCO2, Venous 61(HH) 37 - 52 mmHg [facility] pO2, Venous 41(H) 25 - 40 mmHg [facility] SO2, Measured, Venous 70 65 - 80 % [facility] Base Excess,Vens 7.7(H) 0 - 3.0 mmol/L [facility] Bicarbonate, Calculated, Venous 35(H) 22 - 26 mmol/L [facility] 11/23/2019 7:38 AM EDT 11/23/2019 7:48 AM EDT us Ronaldo Jones MD LAB BLOOD ORDERABLES Final R esult [facility] * Lactate, venous (11/23/2019 7:38 AM EDT) Lactate, Venous 2.1 0.5 - 2.2 mmol/L [facility] 11/23/2019 7:38 AM EDT 11/23/2019 7:48 AM EDT Ronaldo Jones MD LAB BLOOD ORDERABLES Final R esult [facility] * B-type natriuretic peptide (11/23/2019 7:38 AM EDT) N-Terminal, PROBNP, Plasma 803 0 - 899 pg/mL [facility] 11/23/2019 7:38 AM EDT 11/23/2019 7:41 AM EDT Ronaldo Jones MD LAB BLOOD ORDERABLES Final R esult [facility] * (ABNORMAL) Comprehensive Metabolic Panel, Plasma (11/23/2019 7:38 AM EDT) Glucose, Plasma 216(H) 74 - 99 mg/dL [facility] BUN, Plasma 43(H) 8 - 23 mg/dL [facility] Creatinine, Plasma 1.40(H) 0.60 - 1.10 mg/dL [facility] BUN/Creatinine Ratio 31(H) 8 - 20 [facility] Sodium, Plasma 132(L) 136 - 145 mmol/L [facility] Potassium, Plasma 6.9(HH) 3.7 - 4.8 mmol/L [facility] Comment: Read Back completed RESULTED TO: ??TACOS PARSON RN ON: ??11/23/2019 AT 8:22 AM. ?? Chloride, Plasma 92(L) 97 - 107 mmol/L [facility] CO2, Plasma 26 22 - 29 mmol/L [facility] Anion Gap 14 6 - 16 mmol/L [facility] Calcium, Plasma 9.9 8.9 - 10.2 mg/dL [facility] AST, Plasma 15 9 - 36 U/L [facility] Comment:Hemolyzed, result ma y be falsely increased. ALT, Plasma 10 8 - 33 U/L [facility] Alkaline Phosphatase, Plasma 129 46 - 142 U/L [facility] Total Bilirubin, Plasma 0.2 0.2 - 1.1 mg/dL [facility] Total Protein 8.2(H) 6.3 - 7.9 g/dL [facility] Albumin, Plasma 1.6(L) 3.3 - 4.6 g/dL [facility] eGFR 37 SEE NOTE [facility] eGFR, if AFR/AM 45(L) >60 SEE NOTE [facility] Comment: (NOTE) eGFR = estimated GFR; eGFR units = mL/min/1.73 sq meters Chronic Kidney Disease is considered if eGFR <60 mL/min/1.73 sq meters Kidney failure is considered if eGFR is <15 mL/min/1.73 sq meters. eGFR assumes steady state plasma creatinine concentration; not applicable if renal function is rapidly changing or patient is on dialysis. 11/23/2019 7:38 AM EDT 11/23/2019 7:41 AM EDT us Ronaldo Jones MD LAB BLOOD ORDERABLES Final R esult Performing Organization Address [facility]/ZIP Co de Phone Number [facility] * (ABNORMAL) CBC W/O Differential (11/23/2019 7:30 AM EDT) WBC Count 19.66(H) 3.7 - 10.3 k/uL [facility] RBC Count 3.67(L) 3.9 - 5.2 M/uL [facility] HGB 9.7(L) 11.2 - 15.7 g/dL [facility] HCT 33.5(L) 34 - 45 % [facility] Platelet Count 560(H) 155 - 369 k/uL [facility] MCV 91 79 - 98 fL [facility] MCH 26.4 26 - 32 pg [facility] MCHC 29.0(L) 30.7 - 35.5 g/dL [facility] RDW 16.9(H) 12.4 - 14.9 % [facility] MPV 9.2 8.8 - 12.5 fL [facility] NRBC COUNT 0.0 0 % [facility] 11/23/2019 7:30 AM EDT 11/23/2019 7:38 AM EDT us Ronaldo Jones MD LAB BLOOD ORDERABLES Final R esult [facility] * (ABNORMAL) WBC Differential (11/23/2019 7:30 AM EDT) Pathologist [facility] Differential Type AUTOMATED [facility] Neutrophils % 94 % [facility] Lymphocytes 4 % [facility] Monocytes 1 % [facility] Eosinophils 0 % [facility] Basophils 0 % [facility] Immature Granulocytes % 1 % [facility] ABS Neutrophil 18.33(H) 1.6 - 6.1 k/uL [facility] ABS Lymphocyte 0.81(L) 1.2 - 3.9 k/uL [facility] ABS Monocyte 0.22(L) 0.3 - 0.9 k/uL [facility] ABS Eosinophil 0.01 0.0 - 0.5 k/uL [facility] ABS Basophil 0.08 0.0 - 0.1 k/uL [facility] Immature Granulocyte Absolute 0.21(H) 0 - 0.06 k/uL [facility] 11/23/2019 7:30 AM EDT 11/23/2019 7:38 AM EDT Narrative [facility] - 11/23/2019 7:41 AM EDT Therapeutic decision making should be based on absolute values, rather than percentages. Therapeutic decision making should be based on absolute values, rather than percentages. Therapeutic decision making should be based on absolute values, rather than percentages. Therapeutic decision making should be based on absolute values, rather than percentages. us Ronaldo Jones MD LAB BLOOD ORDERABLES Final R esult [facility] * SARS CoV-2/COVID-19 by PCR (11/23/2019 7:30 AM EDT) [facility] SARS CoV2/COVID 19 Specimen Source [employer] [facility] SARS CoV2/COVID 19 Result Not Detected Reference range: Not Detected (NOTE) Testing performed utilizing TEM-PCR (Target Enriched Multiplex Polymerase Chain Reaction) technology. ??Testing laboratory is [facility], [facility] [address], [address] / [place] [address] CLIA ID: [id number]. This test has been validated but FDA's independent review of the validation is pending. This test is performed as a laboratory developed test; independent review of the validation under the FDA's Emergency Use Authorization (EUA) authority will be performed according to current guidance requirements. We will continue to follow federal and state requirements for both notification of results and any confirmatory testing that is required by another agency. This test was developed and its performance characteristics determined by [employer] [facility]. It has not been cleared or approved by the U.S. Food and Drug Administration. Results should be used in conjunction with clinical findings, and should not form the sole basis for a diagnosis or treatment decision. Testing Performed At: [email or web address] [place] [id number] CLIA ID: [id number] [facility] 11/23/2019 7:30 AM EDT 11/23/2019 7:39 AM EDT Ronaldo Jones MD LAB MICROBIOLOGY - GENERAL O RDERABLES Final Result [facility] documented in this encounter Visit Diagnoses Diagnosis Sepsis, unspecified organism (CMS/HCC) documented in this encounter
--- OUTSIDE RECORDS SUMMARY | 2024-08-02 15:16 | XMS_ITS | Encounter Summary ---
Author Organization Healthcare Address [address] [place] [id number] Care Team Providers Care Body Finisher Name Role Phone Unavailable Primary Care Provider Unavailabl e Encounter Details Date Type Department Care Team (Late Contact Info) Description 06/10/2019 [facility] Encounter HISTORICAL OPHTHALMOLOGY [address] [place] [address] Luis Olivares MD [address] [address] Social History Tobacco Use Types Packs/Day Years Used Date Smoking Tobacco: Never Assessed Comments Unknown Sex and Gender Information Value Date Recorded Sex Assigned at Not on file Legal Sex Female 8:26 PM EDT Gender Identity Not on file Sexual Orientation Not on file documented as of this encounter Plan of Treatment Upcoming Encounters Date Type Department Care Team ([facility] Contact Info) Description 08/08/2024 1:00 PM EST Office Visit [facility] Nephrology, Bone & Mineral Metabolism [address], [address] [place] [address] Diana Ahumada MD [address] [place] [address] 12/30/2024 10:15 AM EDT Office Visit [facility] Care [address] [place] [address] Luis Olivares MD [address] [address] documented as of this encounter Visit Diagnoses Not on filedocumented in this encounter Additional Health Concerns Infection Onset Date Last Indicated Resolved Time Meningitis Rule-Out 11/24/2019 12/01/2019 01/14/20 21 5:23 AM EDT documented as of this encounter
--- OUTSIDE RECORDS SUMMARY | 2024-08-02 15:16 | XMS_ITS | Encounter Summary ---
Author Organization Healthcare Address [address] [place] [address] Care Team Providers Care Heel Wheeler Name Role Phone Unavailable Primary Care Provider Unavailabl e Encounter Details Date Type Department Care Team (Late st Contact Info) Description 10/07/2016 [facility] Vitals Encounter [facility] [address] [place] [address] ProviderCaden MD [address] [place] [id number] Social History Tobacco Use Types Packs/Day [...] - Inhaled Oxygen Concentration - - Weight 136 kg (300 lb) 10/07/2016 8:05 AM EST Height 160 cm (5' 3 ) 10/07/2016 8:05 AM EST Body Mass Index 53.14 10/07/2016 8:05 AM EST documented in this encounter Plan of Treatment Upcoming Encounters Date Type Department Care Team (Late Contact Info) Description 08/08/2024 1:00 PM EST Office Visit [facility] Nephrology, Bone & Mineral Metabolism [address], [address] [place] [address] Diana Ahumada MD [address] [place], [place] [id number] 12/30/2024 10:15 AM EDT Office Visit [facility] [address] [place] [address] Luis Olivares MD [address] [place] [address] documented as of this encounter Visit Diagnoses Not on filedocumented in this encounter
--- OUTSIDE RECORDS SUMMARY | 2024-08-02 15:16 | XMS_ITS | Encounter Summary ---
Author Organization [facility] Address [address] [place] [address] Care Team Providers Care Spray Rig Operator Name Role Phone Unavailable Primary Care Provider Unavailabl e Encounter Details Date Type Department Care Team (Late Contact Info) Description 12/02/2016 [facility] Vitals Encounter [facility] [address] [place] [address] ProviderCaden MD [address] [place] [address] Social History Tobacco Use Types Packs/Day [...] - Inhaled Oxygen Concentration - - Weight 137 kg (300 lb 15.9 oz) 12/02/2016 2:06 P M EDT Height 160 cm (5' 3 ) 12/02/2016 2:06 PM EDT Body Mass Index 53.32 12/02/2016 2:06 PM EDT documented in this encounter Plan of Treatment Upcoming Encounters Date Type Department Care Team (Late Contact Info) Description 08/08/2024 1:00 PM EST Office Visit Professional [facility] Nephrology, Bone & Mineral Metabolism [address] [facility], [address] [place] [phone] Diana Ahumada MD [address] [place] [address] 12/30/2024 10:15 AM EDT Office Visit [facility] [address] [place] [address] Luis Olivares MD [address] [place] [address] documented as of this encounter Visit Diagnoses Not on filedocumented in this encounter
--- OUTSIDE RECORDS SUMMARY | 2024-08-02 15:16 | XMS_ITS | Encounter Summary ---
Author Organization [facility] Address [address] [place] [address] Care Team Providers Care Hose Turner Name Role Phone Unavailable Primary Care Provider Unavailabl e Encounter Details Date Type Department Care Team (Late Contact Info) Description 08/04/2017 [facility] Vitals Encounter [facility] [address] [place] [address] ProviderCaden MD [address] [place] [address] Social History Tobacco Use Types Packs/Day [...] Oxygen Concentration - - Weight 137 kg (302 lb 0.5 oz) 08/04/2017 4:01 PM EST Height 160 cm (5' 3 ) 08/04/2017 4:01 PM EST Body Mass Index 53.5 08/04/2017 4:01 PM EST documented in this encounter Plan of Treatment Upcoming Encounters Date Type Department Care Team (Late Contact Info) Description 08/08/2024 1:00 PM EST Office Visit Professional [facility] Nephrology, Bone & Mineral Metabolism [address] [facility], [address] [place] [address] Diana Ahumada MD [address] [place] [address] 12/30/2024 10:15 AM EDT Office Visit [facility] [address] [place] [address] Luis Olivares MD [address] [place] [address] documented as of this encounter Visit Diagnoses Not on filedocumented in this encounter
--- OUTSIDE RECORDS SUMMARY | 2024-08-02 15:16 | XMS_ITS | Encounter Summary ---
Author Organization [facility] Address [address] [place] [address] Care Team Providers Care Senior Paralegal Name Role Phone Unavailable Primary Care Provider Unavailabl e Encounter Details Date Type Department Care Team (Late Contact Info) Description 12/12/2016 [facility] Vitals Encounter [facility] [address] [place] [address] ProviderCaden MD [address] [place] [address] Social History Tobacco Use Types Packs/Day [...] - Inhaled Oxygen Concentration - - Weight 135 kg (297 lb 15.9 oz) 12/12/2016 4:20 P M EDT Height - - Body Mass Index 52.79 12/02/2016 2:06 PM EDT documented in this encounter Plan of Treatment Upcoming Encounters Date Type Department Care Team (Late Contact Info) Description 08/08/2024 1:00 PM EST Office Visit [facility] Nephrology, Bone & Mineral Metabolism [address] [facility], [address] [place] [address] Diana Ahumada MD [address] [place] [address] 12/30/2024 10:15 AM EDT Office Visit [facility] [address] [place] [address] Luis Olivares MD [address] [place] [address] documented as of this encounter Visit Diagnoses Not on filedocumented in this encounter
--- OUTSIDE RECORDS SUMMARY | 2024-08-02 15:16 | XMS_ITS | Encounter Summary ---
Author Organization [facility] Address [address] [place] [address] Care Team Providers Care Chemical Research Worker Name Role Phone Unavailable Primary Care Provider Unavailabl e Encounter Details Date Type Department Care Team (Late st Contact Info) Description 09/19/2016 [facility] Vitals Encounter [facility] [address] [place] [address] ProviderCaden MD [address] [place] [address] Social History Tobacco Use Types Packs/Day [...] - Inhaled Oxygen Concentration - - Weight 139 kg (306 lb) 09/19/2016 3:31 PM EST Height 160 cm (5' 3 ) 09/19/2016 3:31 PM EST Body Mass Index 54.21 09/19/2016 3:31 PM EST documented in this encounter Plan of Treatment Upcoming Encounters Date Type Department Care Team (Late Contact Info) Description 08/08/2024 1:00 PM EST Office Visit Professional [facility] Nephrology, Bone & Mineral Metabolism [address] [facility], [address] [place] [address] Diana Ahumada MD [address] [place], [place] [id number] 12/30/2024 10:15 AM EDT Office Visit [facility] [address] [place] [address] Luis Olivares MD [address] [place] [address] documented as of this encounter Visit Diagnoses Not on filedocumented in this encounter
--- OUTSIDE RECORDS SUMMARY | 2024-08-02 15:16 | XMS_ITS | Encounter Summary ---
Author Organization [facility] Address [address] [place] [address] Care Team Providers Care Office Clinician Name Role Phone Unavailable Primary Care Provider Unavailabl e Encounter Details Date Type Department Care Team (Late Contact Info) Description 01/06/2017 [facility] AEHR Vitals Encounter [facility] [address] [place] [address] ProviderCaden MD [address] [place] [address] Social History Tobacco Use Types Packs/Day [...] Oxygen Concentration - - Weight 137 kg (301 lb 9.4 oz) 01/06/2017 2:41 PM EDT Height 160 cm (5' 3 ) 01/06/2017 2:41 PM EDT Body Mass Index 53.42 01/06/2017 2:41 PM EDT documented in this encounter Plan of Treatment Upcoming Encounters Date Type Department Care Team (Late Contact Info) Description 08/08/2024 1:00 PM EST Office Visit Professional [facility] Nephrology, Bone & Mineral Metabolism [address] [facility], [address] [place] [phone] Diana Ahumada MD [address] [place] [address] 12/30/2024 10:15 AM EDT Office Visit [facility] [address] [place] [address] Luis Olivares MD [address] [place] [address] documented as of this encounter Visit Diagnoses Not on filedocumented in this encounter
--- OUTSIDE RECORDS SUMMARY | 2024-08-02 15:16 | XMS_ITS | Encounter Summary ---
Author Organization [facility] Address [address] [place] [address] Care Team Providers Care Crop And Soil Scientist Name Role Phone Unavailable Primary Care Provider Unavailabl e Encounter Details Date Type Department Care Team (Late Contact Info) Description 04/23/2017 [facility] Vitals Encounter [facility] [address] [place] [address] ProviderCaden MD [address] [place] [address] Social History Tobacco Use Types Packs/Day [...] Oxygen Concentration - - Weight 133 kg (292 lb 15.9 oz) 04/23/2017 7:53 A M EDT Height 160 cm (5' 3 ) 04/23/2017 7:53 AM EDT Body Mass Index 51.9 04/23/2017 7:53 AM EDT documented in this encounter Plan of Treatment Upcoming Encounters Date Type Department Care Team (Late Contact Info) Description 08/08/2024 1:00 PM EST Office Visit Professional [facility] Nephrology, Bone & Mineral Metabolism [address] [facility], [address] [place] [phone] Diana Ahumada MD [address] [place] [address] 12/30/2024 10:15 AM EDT Office Visit [facility] [address] [place] [address] Luis Olivares MD [address] [place] [address] documented as of this encounter Visit Diagnoses Not on filedocumented in this encounter
--- OUTSIDE RECORDS SUMMARY | 2024-08-02 15:16 | XMS_ITS | Encounter Summary ---
Author Organization [facility] Address [address] [place] [address] Care Team Providers Care Gas Regulator Repairer Helper Name Role Phone Unavailable Primary Care Provider Unavailabl e Encounter Details Date Type Department Care Team (Late Contact Info) Description 04/15/2017 [facility]HR Vitals Encounter [facility] [address] [place] [address] ProviderCaden MD [address] [place] [address] Social History Tobacco Use Types Packs/Day [...] - Inhaled Oxygen Concentration - - Weight 134 kg (296 lb 6.2 oz) 04/15/2017 9:37 AM EDT Height 160 cm (5' 3 ) 04/15/2017 9:37 AM EDT Body Mass Index 52.5 04/15/2017 9:37 AM EDT documented in this encounter Plan of Treatment Upcoming Encounters Date Type Department Care Team (Late Contact Info) Description 08/08/2024 1:00 PM EST Office Visit Professional [facility] Nephrology, Bone & Mineral Metabolism [address] [facility], [address] [place] [phone] Diana Ahumada MD [address] [place] [address] 12/30/2024 10:15 AM EDT Office Visit [facility] [address] [place] [address] Luis Olivares MD [address] [place] [address] documented as of this encounter Visit Diagnoses Not on filedocumented in this encounter
--- OUTSIDE RECORDS SUMMARY | 2024-08-02 15:16 | XMS_ITS | Encounter Summary ---
Author Organization Healthcare Address [address] [id number] Care Team Providers Care Booth Operator Name Role Phone Unavailable Primary Care Provider Unavailabl e Encounter Details Date Type Department Care Team (Late st Contact Info) Description 10/13/2019 1:43 AM EST - 10/24/2019 2:22 PM EST Hospital Encounter P[facility] A Inpatient [address] [place] [address] Otis Metzger MD [address] [facility] [address] [place] [address] Hemoperitoneum Social History Tobacco Use Types Packs/Day Years [...] Filled Start D ate End Date Aspirin Buf,HnYnhz-PlVndg-JbP , 81 MG tablet 01/06/2017 05/06/2023 documented as of this encounter Miscellaneous Notes * Social Care Assessment Summary - ProviderCaden MD - 10/24/2019 12:00 AM EST Patient Name: Soraida STYLES Date of : 1950 Discharge Note Discharge Note Who Will Provide Assistance Post-Discharge? Answers: Facility How Many Hours is/are the Caregiver(s) Available? Answers: 24 Hours Discharge Disposition Answers: Acute Rehab [facility] [phone] Is Home Health Needed? If Yes, Specify Agency Name and Service Needed. Answers: No Is DME Needed? If Yes, Select Type of Equipment Needed and DME Company. Answers: No DME Needs I Certify that the Patient has been Provided with a Choice for DME, Home Health, Infusion Services and Facility. Answers: Yes Is This a High-Risk LACE Patient? Answers: No Follow Up Appointments Scheduled? Answers: No clinic will arrange Does the Patient Have Transportation to Follow up Appointments? Answers: Yes Scholarship? Answers: No DILEEP? Answers: No Medicare Second Notice? Answers: Yes Were Services Declined? Answers: No Additional Comments: Notes: Patient will DC today via [facility] at 2:30. Van leaves from [facility] @ 2:30 and was updated patient will need oxygen and bariatric chair. Patient, family, nursing and provider updated. Report to [phone] I certify that the opportunity to review post-acute care facilities/agencies efficiency and quality data was provided to patient/family/legal sales representative groceries. Answers: Yes Electronically signed by: Valarie Lynch RN * Discharge Summary - Renny Rosado - 10/24/2019 12:00 AM EST HOSPITALIZATION: Admit Date:13-Oct-2019 Discharge Date:24-Oct-2019 Discharge Atttenmiguelito Trinidad MD, Roger Guzman ConsultsCA5 - Medicine / Cardiology Private Service Admitting DiagnosisChronic respiratory failure DISCHARGE DIAGNOSIS: History of recent steroid use: Henoch-Schonlein purpura: HLD (hyperlipidemia): HTN (hypertension): IgA nephropathy: GERD (gastroesophageal reflux disease): Depression: Hypothyroidism: CRISTINE (acute kidney injury): Urinary retention: Diabetes mellitus: COPD (chronic obstructive pulmonary disease): UTI (urinary tract infection): Chronic respiratory failure: Atrial fibrillation: Retroperitoneal bleed: Reason for Hospitalization Ms. Phoebe Barrios is a 69y female with h/o HTN, DM, respiratory failure, IgA nephropathy, A-fib on xarelto who was transferred to [facility] on 10/13 for IR embolization of retroperitoneal bleed. The patient presented for Right flank pain and received CTA at OSH showing [id number] cm retroperitoneal hematoma with active artrial extravasation. She received Kcentra at OSH. Hemoglobin normal 11.7 at OSH Of note she was recently at OSH and intubated for respiratory failure HOSPITAL COURSE: Hospital Course Patient arrived as a transfer from OSH to ED for retroperitoneal bleed. Interventional radiologyconsulted for embolization. IR preformed on 10/13 an Embolization of Inferoanterior Left Renal Arteryinefrolateral subsegmental branch to Lower pole. After procedure patient was take to the ICU for post procedure care. Patient POD 1 required 2L Bolus and was tachycardic. Was able to ambulate POD 2. Hemoglobin remained stable. Cardiology saw patient for follow up of history of A-fib. IR will followup in 2-3 weeks for further drainage of hematoma. Patient remianed stable and did not require bloodtransfusion. Will [facility]ge to [facility]. On day of discharge patient urinating and making bowelmovements, tolerating PO pain medicine and Regular diet. 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 General: No acute distress. Resting comfortably. HEENT: NCAT, MMM. Trachea midline. Neck supple. Cardiovascular: Normal rate. Extremities warm, well-perfused. Respiratory: Symmetric chest expansion, non-labored breathing. Abdomen: Soft, mildly tender to palpation on left abdomen, nondistended. No rebound tenderness, guarding or peritonitis. Skin: Skin is well perfused with good turgur and no rash. Musculoskeletal: No obvious skeletal abnormalities. Neuro: No focal deficits. Awake, alert, oriented x 3. GCS 15. Psych: Appropriate mood and affect DIAGNOSTIC AND PROCEDURAL EVENTS: - 10/13/19: Embolization of Inferoanterior Left Renal Artery inefrolateral subsegmental branch to [place]pole Suicide Screening: Discharge Suicide Screen: Has this patient had a low, moderate or high suicide severity documented during their hospital stay? No. DISCHARGE INFORMATION: [facility] Discharge Conditionstable (signs or symptoms of potential problems absent or manageable) Discharge MedicationsFinal Medication List for Discharge Summary Discharge Medicationsacetaminophen 500 mg oral tablet 1 tab(s) orally every 6 hours aspirin 81 mg oral tablet, chewable 1 tab(s) orally once a day azelastine 205.5 mcg/inh (0.15%) nasal spray 2 spray(s) nasal 2 times a day dilTIAZem 120 mg/24 hours oral capsule, extended release 1 cap(s) orally once a day enoxaparin 40 milligram(s) subcutaneous 2 times a day Flonase 50 mcg/inh nasal spray 1 spray(s) in each nostril once a day Florastor 250 mg oral capsule 1 cap(s) orally once a day furosemide 40 mg oral tablet 1 tab(s) orally once a day glucagon 1 milligram(s) intramuscular , [...] bedtime) insulin lispro 100 units/mL injectable solution subcutaneous , As needed, Correction Dose; 1 units if POC BG 250 - 299 2 units if POC BG 300 - 349 3 units if POC BG 350 - 399 Call Provider if POC BG greater than 400 - solution subcutaneous (Every 1 day at 03:00, 21:00 ) insulin lispro 100 units/mL injectable solution subcutaneous [...] provider if POC BG greater than 400 insulin lispro 100 units/mL injectable solution 5 unit(s) subcutaneous 3 times a day (after meals) insulin lispro 100 units/mL subcutaneous solution 5 unit(s) subcutaneous 3 times a day (with meals) levothyroxine 75 mcg (0.075 mg) oral tablet 1 tab(s) orally - tablet orally once a day (06:00) loratadine 10 mg oral tablet 1 tab(s) orally once a day nystatin 100,000 units/g topical powder Apply topically to affected area 3 times a day oxyCODONE 5 mg oral tablet 1 tab(s) orally every 4 hours, As needed, Pain unresponsive to other medications/interventions. Hold for sedation. pantoprazole 40 mg oral delayed release tablet 1 tab(s) orally once a day potassium chloride 10 mEq oral tablet, extended release 1 tab(s) orally once a day predniSONE 2.5 mg oral tablet 1 tab(s) orally - tablet orally once a day (at breakfast) predniSONE 2.5 mg oral tablet 3 tab(s) orally - tablet orally once a day (at breakfast) predniSONE 5 mg oral tablet 1 tab(s) orally - tablet orally once a day (at breakfast) rosuvastatin 10 mg oral tablet 1 tab(s) orally once a day sennosides-docusate 8.6 mg-50 mg oral tablet 1 tab(s) orally 2 times a day Symbicort 160 mcg-4.5 mcg/inh inhalation aerosol 2 puff(s) inhaled 2 times a day venlafaxine 75 mg oral tablet 1 tab(s) orally once a day Vitamin D2 50,000 intl units (1.25 mg) oral capsule 1 cap(s) orally once a week on Fridays Vitamin D3 5000 intl units (125 mcg) oral capsule 1 cap(s) orally once a day Xopenex HFA 45 mcg/inh inhalation aerosol 2 puff(s) inhaled every 4 hours, As Needed - PRN shortness of breath Pending ResultsNo Pending Results DISCHARGE INSTRUCTIONS: Diet: Follow the Healthy Heart Diet (See instructions in your patient education handouts). Work towards or maintain a healthy weight. Lifting: No Restrictions. Activity: move around as you are able. Instructed patient to call if: Temperature is above 101.5. Pain is not relieved by medications. You are throwing up or have diarrhea for more than 24 hours. Medication Instructions: Take Medication exactly as instructed. Do not take any medications that have not been ordered for This means do not take other people's medication, illegal drugs or substances, or even more aspirin than has been ordered. Recommended Follow Up Instructions: Follow Up Instructions: Follow up with: cardiology clinic. in/on 07-Nov-2019 1:00 PM. - Address/Phone Number: [facility] [place]: [facility] [phone]. ATTESTATION STATEMENTS: Attending Attestation Statement: I saw and evaluated the patient. I discussed the case with the resident/fellow and agree with the findings and plan as documented. Electronic Signatures: Eric LOPEZ, Andre Mg (Resident) (Signed 24-Oct-19 13:32) Authored: HOSPITALIZATION, DISCHARGE DIAGNOSIS, HOSPITAL COURSE, DIAGNOSTIC AND PROCEDURAL EVENTS, Suicide Screening, DISCHARGE INFORMATION, DISCHARGE INSTRUCTIONS, Recommended Follow Up Instructions Renny Rosado MD (Attending) (Signed 25-Oct-19 13:07) Authored: ATTESTATION STATEMENTS Co-Signer: HOSPITALIZATION, DISCHARGE DIAGNOSIS, HOSPITAL COURSE, DIAGNOSTIC AND PROCEDURAL EVENTS,Suicide Screening, DISCHARGE INFORMATION, DISCHARGE INSTRUCTIONS, Recommended Follow Up Instructions Last Updated: 25-Oct-19 13:07 by Renny Rosado MD (Attending) * Social Care Assessment Summary - Caden Szymanski MD - 10/21/2019 12:00 AM EST Patient Name: Soraida STYLES Date of : 1950 Progress Note Progress Note Has Discharge Plan Changed? If Yes, Please Describe Change and Provide Details in Additional Comments Box Below. Answers: No Additional Comments Notes: [facility] denied admission today due to elevated white count. They are requesting PMR consult; service will order. Electronically signed by: Valarie Lynch RN * Consults - Roger Gilmore - 10/21/2019 12:00 AM EST Consultation Service: Service/ Team: [facility] - Physical Medicine and Rehab / Rehabilitation Medicine. Requesting Attending Physician: Jez Douglas MD, Otis I(Attending): Attending, Surgery - General, Medicine Chief Complaint: Requesting ServiceSGE Reason for ConsultEvaluate for rehabilitation potential Consult Note: - Physical Medicine and Rehabilitation Patient: NAM STYLES : 1950 PCP: Ngoc Reason for Consultation: Evaluate for rehabilitation potential Referring Provider: Story Misael History of Present Illness: Nam Sandhu is a 69 year-old female who was transferred to from outside hospital for retroperitoneal hemorrhage on 10/13/19. Proceeded to IR on 10/13/19 where she underwent embolization of inferiorbranch of anterior left renal artery. Procedure was well-tolerated with no reported complications. Home Rivaroxaban is to be held for at least 2-4 weeks; anticoagulation with SQH for now until followup with Cardiology in 2-4 weeks. She was evaluated by PT/OT who recommend acute rehabilitation. Hospital course complicated by: 01. Anemia: secondary to acute blood loss; monitoring labs; transfusing PRN. 02. Eecgr-nb-zlbavjq respiratory failure/COPD exacerbation: 03. Urinary retention/UTI: retention resolved; completed Cefazolin for E.coli UTI. 04. Atrial fibrillation: holding home Rivaroxaban per Cardiology; will continue SQH until followup with Cardiology in 2-4 weeks. Restarted home Diltiazem; continued home Furosemide. 05. GERD: continue PPI. 06. Hypothyroidism: continuing home Levothyroxine. 07. Leukocytosis without fever: uptrending WBC; no current signs of infection; per primary team likely hemoconcentration. 08. CRISTINE: resolved; holding home ARB. 09. HTN: holding home Olmesartan; restarted home Diltiazem and continuing home Furosemide. 10. Depression: continuing home Venlafaxine. 11. DM-2: consistent carb diet; managing with fsbg and sliding scale insulin. PM&R consulted to evaluate for rehabilitation potential. Patient seen and examined in room. Patient's daughter present during encounter. ROS: 14-point review of systems was obtained and is negative except as per history of present illness. PMH: --DM-2 --COPD --Chronic respiratory failure --DELL on CPAP --Atrial fibrillation on Rivaroxaban --GERD --HTN --HLD --Hypothyroidism --IgA nephropathy --Hiatal hernia --Depression PSH: --Laparoscopic cholecystectomy --Hysterectomy Allergies: Penicillin->Anaphylaxis; Cipro->Unknown Codeine->Unknown IV Contrast->Unknown Metformin->Other Bactrim->Other Home Medications: [retrieved for NAM STYLES at 21 Oct 2019 18:50]: azelastine 205.5 mcg/inh (0.15%) nasal spray 2 [...] capsule 1 cap(s) orally once a day Active Medications: SCHEDULED MEDS [retrieved for NAM STYLES at 21 Oct 2019 18:50]: Acetaminophen 500 MG Oral every 6 hours Atorvastatin 20 MG Oral once a day (at bedtime) Diltiazem Capsule, Extended Release 120 MG Oral once a day Docusate 50 mg-Senna 8.6 mg 1 tablet Oral 2 times a day Enoxaparin Inj. (PROPHYLAXIS) 40 MG SubCutaneous 2 times a day Formoterol 5 mcg / Mometasone 200 mcg Inh MDI 2 puff Inhalation 2 times a day Furosemide 40 MG Oral once a day Insulin Glargine (LANTUS) Inj. 100 units/mL 10 units SubCutaneous once a day (at bedtime) Insulin Lispro (HUMALOG) Inj. 100 units/mL 5 units SubCutaneous 3 times a day (after meals) Levothyroxine 75 mcg Oral once a day (06:00) Pantoprazole 40 MG Oral once a day PredniSONE 7.5 MG Oral once a day (at breakfast) PredniSONE 5 MG Oral once a day (at breakfast) PredniSONE 2.5 MG Oral once a day (at breakfast) Venlafaxine 75 MG Oral <User Schedule> PRN MEDS [retrieved for NAM STYLES at 21 Oct 2019 18:50]: Dextrose 10% - 25 gm/250 mL (IVPB) 12.5 gram IntraVenous Piggy Back Per Glucose Monitoring Dextrose 10% - 25 gm/250 mL (IVPB) 25 gram IntraVenous Piggy Back Per Glucose Monitoring Glucagon Inj. 1 MG IntraMuscular Per Glucose Monitoring Glucose 40% 1 tube Oral Per Glucose Monitoring Insulin Lispro (HUMALOG) Inj. 100 units/mL (Correction Factor) units SubCutaneous 3 times a day (after meals) Insulin Lispro (HUMALOG) Inj. 100 units/mL (Correction Factor) units SubCutaneous <User Schedule> Ondansetron Inj. 4 MG IntraVenously every 6 hours OxyCODONE 5 MG Oral every 4 hours Family hx: Mother with HTN, CVA, Alzheimer's Father with heart disease ( of [place]) Denies history of DM and cancer. Social hx: Marital Status: Residence: with son and vhkbiidn-gp-[id number] in one-level house +basement; one step to enter. 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 Small left pleural effusion and basal atelectasis. No pneumothorax. Increased right basal airspace disease. No pneumothorax. Degenerative changes of the left shoulder. IMPRESSION: Increased right basal airspace disease. Increased small left pleural effusion. Current diet: regular consistent carb, thin liquids Functional History: Premorbid: Ambulation: needs device ADL's: needs device Prior Cognitive Status: needs device Prior Physical Level of Activity: sedentary Current: Bed Mobility: Transfers: SBA as of 10/19/19 Ambulation: 125 feet CGA with RW as of 10/20/19 Basic ADL's: SBA as of 10/19/19 Dressing: maxA as of 10/14/19 CODE STATUS: full PHYSICAL EXAM BP 155/79 HR 99 R 22 T 98.0 (36.7) Wt (13-Oct-2019) 139.0kg (306.4lbs) Ht (13-Oct-2019) 155.0cm (5'1 ) BMI 57.9 Gen: obese white female; seated in chair; no acute distress Eyes: no scleral icterus, pupils round and symmetric Neck: supple, no tracheostomy ENT: nasal cannula in place; mucous membranes moist CV: tachycardic; extremities warm and well-perfused; no peripheral cyanosis Resp: on 2L via NC; no audible wheeze; no increased work of breathing GI: obese; soft; non-tender : no bond MSK: no arthralgias, no myalgias Skin: hematoma left flank; no increased warmth; increased skin pigmentation right anterior tibia Heme/lymph/immune: 1+ edema in distal BLE Psychiatric: cooperative with exam; expressive affect Neurological: awake and alert, participating in conversation, speech fluent no facial droop; no lid lag; EOM intact BUE strength 5/5 BLE strength 5/5 sensation present, but diminished in distal BLE ASSESSMENT/PLAN: Nam Sandhu is a 69 year-old female with: --Retroperitoneal bleed s/p IR embolization (10/13/19) --CRISTINE --Anemia --COPD exacerbation --UTI --Urinary retention --Leukocytosis --Abdominal wall hematoma --Deconditioning/weakness --Functional decline --ADL impairment --Gait impairment Also with: --DM-2 --COPD --Chronic respiratory failure --DELL on CPAP --Atrial fibrillation on Rivaroxaban --GERD --HTN --HLD --Hypothyroidism --IgA nephropathy --Hiatal hernia --Depression Recommendations: --The patient requires 24-hour availability of a rehabilitation physician to continue the management of acute medical/post-surgical issues, underlying co morbidities, and a rehabilitation plan that necessitates services from physical therapy, occupational therapy and/or speech therapy. The patient will tolerate > 3 hours of therapy per day, 5 days per week, is expected to make measurable improvement in their functional capacity, and has realistic goals to return to a community based living environment (home, assisted or independent living). The patients post-acute care needs are best met in an Acute Inpatient Rehabilitation (IRF) setting when deemed medically/surgically stable. --Continue to monitor for occult infection as WBC uptrending; patient with CBC tomorrow AM. --Patient will need to remain hemodynamically stable for at least 24 hours without need for transfusion prior to admission to acute rehabilitation. --Patient will need to have follow-up plan with Cardiology scheduled prior to discharge, or at least a plan for anticoagulation laid out; this can be explained in discharge summary. --Patient will likely require cardiac precautions while in acute rehabilitation. Thank you for allowing us to participate in the care of your patient. We will follow peripherally. Please do not hesitate to call with questions [phone]. Guille Alegria MD PGY-III, Physical Medicine & Rehabilitation Attending Attestation Statement: I saw and evaluated the patient with the resident/fellow. I discussed the case with the resident/fellow and agree with the findings and plan as documented. Electronic Signatures: Guille Alegria MD (Resident) (Signed 21-Oct-19 19:29) Authored: CONSULTATION SERVICE, EVALUATION Roger Gilmore DO (Attending) (Signed 22-Oct-19 09:58) Authored: CRITICAL CARE CHARGING STATEMENT/ATTENDING ATTESTATION Co-Signer: CONSULTATION SERVICE, EVALUATION Last Updated: 22-Oct-19 09:58 by Roger Gilmore DO (Attending) * Interim Summary - Willis Tee - 10/20/2019 12:00 AM EST Cardiology Interim Summary: Patient scheduled to undergo Watchman device with Dr. Carney in few weeks (patient will be notifiedregarding timing of procedure). Recommend outpatient follow up with general cardiology in 2-4 weeks. Echocardiogram reviewed, it is consistent with normal biventricular function and no valvular pathology. Willis Tee MD therapeutic specialist, PGY-4 Pager: [phone] Electronic Signatures: Willis Tee MD (Resident) (Signed on 20-Oct-19 12:20) Authored Last Updated: 20-Oct-19 12:20 by Willis Tee MD (Resident) * Social Care Assessment Summary - Caden Szymanski MD - 10/20/2019 12:00 AM EST Patient Name: Soraida STYLES Date of : 1950 Progress Note Progress Note Has Discharge Plan Changed? If Yes, Please Describe Change and Provide Details in Additional Comments Box Below. Answers: No Additional Comments Notes: Patient should have bed at [facility] Thursday. Electronically signed by: Valarie Lynch RN * Social Care Assessment Summary - Caden Szymanski MD - 10/18/2019 12:00 AM EST Patient Name: Soraida STYLES Date of : 1950 Progress Note Progress Note Has Discharge Plan Changed? If Yes, Please Describe Change and Provide Details in Additional Comments Box Below. Answers: No Additional Comments Notes: Spoke with Ms. Velazquez regarding possible transfer to [facility] tomorrow. She is hesitant to move. She declined therapy today. [facility] updated on follow up plan to drain hematoma and AC plan. Electronically signed by: Valarie Lynch RN * Consults - Vivi Lai - 10/18/2019 12:00 AM EST Consultation Service: Service/ Team: MAC - Medicine/ Coagulation Service. Requesting Attending Physician: Otis Medina MD, I(Attending): Attending, Surgery - General, Medicine Chief Complaint: Requesting ServiceBlue Surgery Team C Reason for ConsultAntithrombotic recommendations for stroke prevention with afib in setting of acute retroperitoneal bleeding event while on outpatient combination antithrombotic therapy with rivaroxaban (Xarelto) 20mg daily AND aspirin 81mg daily. Consult Note: - Brief HPI/Hospital Course: *69 year-old female with h/o HTN, DMT2, HLD, GERD, COPD, hypothyroidism,sleep apnea on CPAP, morbid obesity (BMI 57.9), CAD, and atrial fibrillation ([id number]=5) on outpatient combination antithrombotic therapy (rivaroxaban + aspirin) started Aug 2019 for primary stroke prevention. * On 10/13, patient presented to OSH with worsening left flank pain over 2 weeks in setting of recent history of UTI. * OSH imaging showed evidence of large left retroperitoneal hematomawith active extravasation in close proximity and with mass effect on the left kidney. * Patient received Kcentra at OSH for reversal and transferred to on 10/13/2019 for further management. * On 10/13, IR was consulted for angiographic evaluation and embolization which was done at the site of brisk active extravasation noted as possibly bleeding from known left renal cyst. * Other sites of active extravasation were noted to be slow-flow and did not have embolization secondary to risks. * Since admission at , therapeutic anticoagulant (rivaroxaban) and SAPT (aspirin) was held and patient on VTE prophylaxis with SQ heparin from 10/14 to current. * Past medical history from chart review: HTN, DMT2, HLD, GERD, COPD, hypothyroidism, sleep apnea on CPAP, morbid obesity (BMI 57.9), CAD, and atrial fibrillation ([id number]=3) on outpatient combination antithrombotic therapy (rivaroxaban+ aspirin) started Aug 2019 for primary stroke prevention. Past Surgical History: Laparoscopic cholecystectomy Hystrectomy Family History: Reviewed Social History: denies tobacco use denies ETOH use Denies illicit drug use Allergies: Penicillin->Anaphylaxis;Cipro->Unknown; codeine->Unknown; IV Contrast->Unknown; Metformin->Other; Outpatient medications: [retrieved for NAM STYLES at 18 Oct 2019 14:18]: azelastine 205.5 mcg/inh (0.15%) nasal spray 2 spray(s) nasal 2 times a day Flonase 50 mcg/inh nasal spray 1 spray(s) in each nostril once a day nystatin 100,000 units/g topical powder Apply topically to affected area 3 times a day predniSONE 10 mg oral tablet 1 tab(s) orally [...] As Needed - PRN shortness of breath aspirin 81 mg oral tablet, chewable 1 tab(s) orally once a day venlafaxine 75 mg oral tablet 1 tab(s) orally once a day Xarelto 20 mg oral tablet 1 tab(s) orally once a day (in the evening) HumaLOG 100 units/mL subcutaneous solution subcutaneous 4 times a day (before meals and at bedtime)per sliding scale insulin detemir 100 units/mL subcutaneous solution 17 unit(s) subcutaneous 2 times a day insulin lispro 100 units/mL subcutaneous solution 5 [...] release 1 tab(s) orally once a day Vitamin D2 50,000 intl units (1.25 mg) oral capsule 1 cap(s) orally once a week on Fridays Vitamin D3 5000 intl units (125 mcg) oral capsule 1 cap(s) orally once a day Active Meds [retrieved for NAM STYLES at 18 Oct 2019 14:18]: CARDIOVASCULAR AGENTS Diltiazem Capsule, Extended Release: 120 MG Oral once a day CENTRAL NERVOUS SYSTEM AGENTS Acetaminophen: 500 MG Oral every 6 hours Ondansetron Inj.: 4 MG IntraVenously every 6 hours OxyCODONE: 5 MG Oral every 4 hours COAGULATION MODIFIERS Heparin Inj.: 7500 units SubCutaneous every 8 hours GASTROINTESTINAL AGENTS Docusate 50 mg-Senna 8.6 m tablet Oral 2 times a day Pantoprazole: 40 MG Oral once a day HORMONES/HORMONE MODIFIERS Levothyroxine: 75 mcg Oral once a day (06:00) PredniSONE: 10 MG Oral once a day (at breakfast) [...] Factor): units SubCutaneous 3 times a day (after meals) Insulin Lispro (HUMALOG) Inj. 100 units/mL (Correction Factor): units SubCutaneous <User Schedule> PSYCHOTHERAPEUTIC AGENTS Venlafaxine: 75 MG Oral <User Schedule> RESPIRATORY AGENTS Formoterol 5 mcg / Mometasone 200 mcg Inh MDI: 2 puff Inhalation 2 times a day VITALS (last 24h) [retrieved for NAM STYLES at 18 Oct 2019 14:20]: Tc: 36.7 Tmax: 36.7 @ Oct 13:27 Tf: 98.1 Tmax: 98.1 @ Oct 13:27 HR: 102 (95 - 102) BP: 153/83 (136/61 - 150/88) FSB (146 - 151) RR: 23 (20 - 24) SpO2: 91% (91% - 98%) Body Measurements [retrieved @ 10/18/2019 2:20:30 PM] Admission Weight 139.0kg (306.4lbs) Daily Weight [13-Oct-2019] 139.0kg (306.4lbs) -- 0.0kg difference from 139.0 Height [13-Oct-2019] 154.9cm (5'0 ) BMI 57.9 LABS (last 48h) [retrieved for NAM STYLES at 18 Oct 2019 14:29]: WBC: 13.43 / Hb: 7.2 / Hct: 23.9 / Plt: 349 [10/17 @ 06:58] Selected lab trends: Selected Imaging/IR Reports: IR Angio Report from 10/16/2019 Verified by: DIANDRA BRADEN M.D. on Oct 16 2019 9:35P; Transcribed by: PSCB on Oct 16 2019 9:35P; Dictated by: DIANDRA BRADEN M.D. on Oct 13 2019 8:24A MAC A/P: A multidisciplinary consult was requested from the anticoagulation service. Information was obtained from the following sources, as available: the patient, the patient's family, review of medical records, and other providers. The anticoagulation consult service provides clinical guidelinesas follows: Standard of care - an area with adequate research from randomized trials documenting benefit. Recommendation for care - an area where there is lack of randomized trials but benefit suggested byconsensus statements and/or published expert opinion. Option for care * an area where there is a lack of research or supportive evidence but where an approach may be reasonable (karine. as an alternative). 69 year-old female with h/o HTN, DMT2, HLD, GERD, COPD, hypothyroidism, sleep apnea on CPAP, morbidobesity (BMI 57.9), CAD, and atrial fibrillation (VNH5PM1- Vasc=4) on outpatient combination antithrombotic therapy (rivaroxaban + aspirin) started Aug 2019 for primary stroke prevention. * On 10/13, patient presented to OSH with worsening left flank pain over 2 weeks in setting of recent history of UTI. * OSH imaging showed evidence of large left retroperitoneal hematoma with active extravasation in close proximity and with mass effect on the left kidney. * Patient received Kcentra at OSH for reversal and transferred to on 10/13/2019 for further management. * On 10/13, IR was consulted for angiographic evaluation and embolization which was done at the site of brisk active extravasation noted as possibly bleeding from known left renal cyst. * Other sites of active extravasation were noted to be slow-flow and did not have embolization secondary to risks. * Since admission at , therapeutic anticoagulant (rivaroxaban) and SAPT (aspirin) was held and patient on VTE prophylaxis with SQ heparin from 10/14 to current. * Noted IR Recommendations following angio/embolization on 10/13 with concern for high risk of bleeding: *IR recommended NOT to restart anticoagulation/antiplatelets except under very close monitoring andwith a low threshold to discontinue them. *IR also noted per patient *s family, the patient's Xarelto is for treating atrial fibrillation which is intermittent. *IR suggested it may be helpful to explore other options for decreasing stroke risk, such as cardiac ablation and/or left atrial appendage closure and IR noted the patient has a difficult situation. *Any future anticoagulation/antiplatelets must be carefully weighed against her bleeding risk--particularly as noted at this left kidney--and potential further loss of renal parenchyma and renal function if additional renal tissue must be sacrificed by embolization. * *If the patient remains hemodynamically stable, the large perirenal hematoma can be percutaneously drained after about 2-3 weeks to try to aid recovery of the remaining left renal parenchyma, as wellas for patient comfort. * Assessment/Recommendations - Discussed with Dr. Lai as part of MAC. *On combination AT (rivaroxaban 20mg daily + aspirin 81mg daily) for primary stroke prevention reportedly with recent diagnosis of intermittent atrial fibrillation (Aug 2019) and rivaroxaban started by PCP (Cesar Grossman [phone] with [facility]) ; *Called PCP to get more info, last saw PCP on 07/21/2019 and aspirin was home medication *Xarelto reportedly added in Aug 2019 *09/07 * 09/15/2019: * *Patient had 8-day hospitalization at [facility] for acute respiratory failure and E.coli UTI, CAP with parainfluenza and reportedly Xarelto + aspirin were listed as outpatient medications and were continued per [facility] Cardiology consult recommendation at discharge *No ECG has been done on this admission and telemetry monitoring noted tachycardia. *On review of previous [facility] records: * 03/16/2017 ECG noted normal sinus rhythm; 02/04/2017 ECHO normalLVfxn with EF >55% *[id number] = 4 for h/o HTN, DM, female with no reported history of previous CVA *8% annual risk of stroke/systemic embolism while off anticoagulant *HAS-BLED score = 4 (h/o major bleeding; age>65y; HTN; currently on aspirin) with >9% annual risk of major bleeding event on combination therapy (rivaroxaban + aspirin) *Per team, they consider the retroperitoneal hematoma stable and possibly ready to restart AC soon *Note Hgb has trended down but stable 7.2 for last 3 days *No repeat scan since admission, patient has allergy to IV contrast but underwent angio by IR *Following IR embolization 10/13, note IR recommendations noted concern for bleeding risk recommending consider nonAC options for stroke prevention including cardiac ablation or LAAC *Other info: Noted Scr increased to 2.14 on 10/14 but has decreased since admission with last Scr = 1.39 on 10/16. * Noted in 2017, Scr <1.0. *Team notes CRISTINE resolving. *Noted hgb trend down to 7.2 but stable for last 48 hours *Considering high risk of bleeding (HAS-BLED = 4), would recommend hold off on restarting anticoagulation until follow-up with Cardiology in outpatient setting. *Discussed with Dr. Lai and reasonable to consider outpatient Cardiology f/u and to evaluate non-anticoagulant options to minimize risk of stroke with afib including left atrial appendage closure (LAAC). *Dr. Lai suggested follow-up with Cardiology if patient wanted to follow-up at . *Note patient at increased risk of stroke/systemic embolism ([id number] = 4 with 6.5% annual riskof SSE while off rivaroxaban) during interruption of anticoagulation considering risk factors for stroke risk but at this time, risk of bleeding may outweigh benefit until risk of bleeding lowers. *If restart OAC, might recommend apixaban over restarting rivaroxaban considering h/o GERD, on long-term prednisone with concern of GI bleeding risk with rivaroxaban. *Did not see strong indication for aspirin other than primary CV disease prevention and if going tocontinue OAC, would stop ASA to lower bleeding risk by 2-3 fold. *Recommend continue pharmacologic VTE prophylaxis while hospitalized unless restarted on OAC. * Currently on SQ heparin 7500 units q8hrs, would consider change to enoxaparin 40mg daily with improvingrenal function as an alternative option with less number of injections per day. *For prevention of recurrent VTE and/or complication of vascular disease, recommend lifestyle modification including smoking cessation, second-hand smoke avoidance, diet, exercise, and a consideration for statin therapy as warranted. *Thank you for allowing us to participate in the care of Ms. Phoebe Barrios . Please refer to Dr. Lai's attestation for any additional comments and contact MAC team on Pager [phone] on Mon-Fri 8a-4p if any additional questions. Attending Physician Comments: I participated in the uriostegui aspects of care and decision making for the multidisciplinary anticoagulation service consult that was requested for thrombosis management and/or anticoagulation therapy. I discussed the case with Dr. Owusu and agree with his findings as plan as documented in his note. Twenty minutes were spent on complex decision making related to high-risk anticoagulation/thrombosis management. Thank you for allowing us to participate in the care of this patient. Should you have additional questions or if the patient's condition changes, please let us know. Please note that the anticoagulation consult service provides clinical guidelines as follows: Standard of care - an area with adequate research from randomized trials documenting benefit. Recommendation for care - an area where there is lack of randomized trials but benefit suggested byconsensus statements and/or published expert opinion. Option for care * an area where there is a lack of research or supportive evidence but where an approach may be reasonable (karine. as an alternative). Counseling should be given on benefits of healthy (e.g. plant-based) nutrition, maintenance of ideal body weight, avoidance of all tobacco products, including second hand smoke, importance of regularexercise, and consideration of statin therapy to reduce vascular disease, including venous thromboembolic events. Electronic Signatures: Billy Owusu (Pharmacist) (Signed 18-Oct-19 14:56) Authored: CONSULTATION SERVICE, EVALUATION Vivi Lai MD (Attending) (Signed 01-Nov-19 13:23) Authored: CRITICAL CARE CHARGING STATEMENT/ATTENDING ATTESTATION Co-Signer: CONSULTATION SERVICE, EVALUATION Last Updated: 01-Nov-19 13:23 by Vivi Lai MD (Attending) * Consults - Aj Cho - 10/18/2019 12:00 AM EST Consultation Service: Service/ Team: CA5 - Medicine / Cardiology Private Service. Requesting Attending Physician: Jez Douglas MD, Otis Johns(Attending): Attending, Surgery - General, Medicine Chief Complaint: Requesting ServiceBlue surgery Reason for ConsultManagement of Afib Consult Note: - CARDIOLOGY CONSULT NOTE HPI Ms. Phoebe Barrios is a dagoberto 69 year old woman with a PMH that includes paroxysmal atrial fibrillation, HTN, morbid obesity with obstructive sleep apnea, and DM for whom cardiology was consulted for management of her cardiac issues. Mrs. Phoebe Barrios is a long standing hypertensive who was first diagnosed with paroxysmal atrial fibrillation in 2013. She was put on a laboratory monitor for a month, which showed no subsequent episodes and was then started on diltiazem and olmesartan. In August 2019, her uniform force captain obtained a CXR which he felt was concerning for volume overload, and referred the patient to a casino supervisor. The casino supervisor obtained an ECG which demonstrated atrial fibrillation, and she was put on rivaroxban with the plan to cardiovert at a later date. Before this procedure occured, she was admitted to OS for hypercapnic respiratory failure and subsequently discharged to an acute rehab facility. Her recovery has been complicated by a retroperitoneal bleed that was successfully embolized by IR on 13 Oct 2018. However, interventional radiology noted several other slow flow vessels that were not emblolized, and as such, her AC/AP have been held since admission. She had a single episode of Afib with ventricular rates of 140 on 10/15/2019 from which she converted spontaneously, but has otherwise remained in NSR/low grade sinus tachycardia. Mrs. Phoebe Barrios reports intermittent palpitations. She also describes orthopnea, lower extremity edema, and dyspnea on exertion, only able to walk 60 or so feet before having to stop. ROS A full 14 system ROS was performed and was negative except where noted above. PMH Morbid obesity, BMI 58 Atrial fibrillation: rate controlled with diltiazem and anticoagulated with apixiban HTN: managemed with olmesartan, furosemide HLD DELL: previously used CPAP COPD Hypothyroidism Mood disorder MEDICATIONS [retrieved for PHOEBE BARRIOSNAM at 18 Oct 2019 15:44]: azelastine 205.5 mcg/inh (0.15%) nasal spray 2 spray(s) nasal 2 times a day Flonase 50 mcg/inh nasal spray 1 spray(s) in each nostril once a day nystatin 100,000 units/g topical powder Apply topically to affected area 3 times a day predniSONE 10 mg oral tablet 1 tab(s) orally [...] As Needed - PRN shortness of breath aspirin 81 mg oral tablet, chewable 1 tab(s) orally once a day venlafaxine 75 mg oral tablet 1 tab(s) orally once a day Xarelto 20 mg oral tablet 1 tab(s) orally once a day (in the evening) HumaLOG 100 units/mL subcutaneous solution subcutaneous 4 times a day (before meals and at bedtime)per sliding scale insulin detemir 100 units/mL subcutaneous solution 17 unit(s) subcutaneous 2 times a day insulin lispro 100 units/mL subcutaneous solution 5 [...] release 1 tab(s) orally once a day Vitamin D2 50,000 intl units (1.25 mg) oral capsule 1 cap(s) orally once a week on Fridays Vitamin D3 5000 intl units (125 mcg) oral capsule 1 cap(s) orally once a day FAMILY HISTORY Reviewed and non-contributory SOCIAL HISTORY 10 pack year smoking history, quit 25 years ago. Social alcohol use. No illicit druge use. VITALS BP 153/83 HR 102 R 23 T 98.1 (36.7) Wt (13-Oct-2019) 139.0kg (306.4lbs) Ht (13-Oct-2019) 155.0cm (5'1 ) BMI 57.9 PHYSICAL EXAM GEN: morbidly obese woman, lying in bed, no apparent distress. HEENT: EOMI. Sclera anicteric. MMM. Neck supple. NC in place. CV: S1, S2 present. No m/r/g appreciated. Regular in rate and rhythm. RESP: breathing comfortably on room air. Breath sounds bilaterally. Clear to auscultation. ABDO: soft, non distended, non tender. PERIPHERAL: skin dry and warm. Radial pulses 2+ bilaterally. 2+ pitting edema of bilateral lower extremities. NEURO: awake, alert, and oriented. Moving all extremities. PSYCH: pleasant. Congurent affect. INVESTIGATIONS LABS (last 72h) [retrieved for NAM STYLES at 18 Oct 2019 16:11]: WBC: 13.43 / Hb: 7.2 / Hct: 23.9 / Plt: 349 [10/17 @ 06:58] 141 102 30 < 112 Ca: 9.0 P: 3.0 M.6 [10/16 @ 03:32] 4.7 26 1.39 WBC: 16.23 / Hb: 7.3 / Hct: 23.2 / Plt: 315 [10/16 @ 03:30] ASSESSMENT AND PLAN Mrs. Phoebe Barrios is a 69 year old woman with a PMH that includes morbid obestiy and paroxysmal atrial fibrillation on rivaroxaban who recently suffered a spontaneous retroperitoneal hematoma. Cardiology consulted for management of atrial fibrillation, ongoing HTN, and concern of heart failure. #Atrial fibrillation #HTN -CHADSVASC score 4 (woman, female, HTN, age. HAS-BLED score of 4). -would not anticoagulate at this time, as risk of bleeding is higher than risk of. -please obtain ECHO. -we will contact structural heart team to evaluate patient for Watchman (VIVIAN closure device). -continue diltiazem 120mg. -diurese with furosemide 40mg IV once in AM. Patient can then be transitioned to home furosemide dose. -would continue to hold home ARB. Please page [phone] Pager with any questions. Electronic Signatures: Benny Mahan MD (Resident) (Signed 18-Oct-19 19:10) Authored: CONSULTATION SERVICE, EVALUATION Aj Cho MD (Attending) (Signed 04-May-20 18:12) Co-Signer: CONSULTATION SERVICE, EVALUATION Last Updated: 04-May-20 18:12 by Aj Cho MD (Attending) * Social Care Assessment Summary - Caden Szymanski MD - 10/17/2019 12:00 AM EST Patient Name: Soraida STYLES Date of : 1950 Progress Note Progress Note Has Discharge Plan Changed? If Yes, Please Describe Change and Provide Details in Additional Comments Box Below. Answers: No Additional Comments Notes: Anti-coag plan in progress. Dispo remains [facility]; recs remain Acute. Electronically signed by: Valarie Lynch RN * Interim Summary - Diandra Bradent - 10/16/2019 12:00 AM EST INTERVENTIONAL RADIOLOGY BRIEF NOTE PROCEDURE(S): ULTRASOUND GUIDED ACCESS TO THE RIGHT COMMON FEMORAL ARTERY ANGIOGRAPHY OF THE RIGHT COMMON FEMORAL ARTERY AORTOGRAM SELECTIVE ANGIOGRAPHY OF THE SUPEROPOSTERIOR LEFT RENAL ARTERY SELECTIVE ANGIOGRAPHY OF THE INFEROANTERIOR LEFT RENAL ARTERY SELECTIVE ANGIOGRAPHY OF THE INFEROANTERIOR LEFT RENAL ARTERY INFEROMEDIAL SUBSEGMENTAL BRANCH TO LOWER POLE SELECTIVE ANGIOGRAPHY OF THE INFEROANTERIOR LEFT RENAL ARTERY INFEROLATERAL SUBSEGMENTAL BRANCH TO LOWER POLE SELECTIVE ANGIOGRAPHY OF THE INFEROANTERIOR LEFT RENAL ARTERY LATERAL INFERIOR SUBSEGMENTAL BRANCH TO LOWER POLE SELECTIVE ANGIOGRAPHY OF THE INFEROANTERIOR LEFT RENAL ARTERY LATERAL SUPERIOR SUBSEGMENTAL BRANCH TO LOWER POLE EMBOLIZATION OF THE INFEROANTERIOR LEFT RENAL ARTERY INFEROLATERAL SUBSEGMENTAL BRANCH TO LOWER POLE CLOSURE DEVICE USED AT RIGHT COMMON FEMORAL ARTERY CONSCIOUS SEDATION CLINICAL HISTORY: IR consulted for left renal active extravasation seen on CTA. Pleasant 69 year old woman with intermittent atrial fibrillation who reports starting Xarelto August 2019 and developing left flank pain a few weeks ago. Her left flank pain became intolerable yesterday; no trauma, but she reports a recent and ongoing UTI as well as exercising on her stationary recumbent bicycle; CTA prior to consult showed the left renal active extravasation. She also has Henoch-Schonlein purpuraand mild renal insufficiency. No known history of cancer. COMPARISON: 02/04/[address] chest, 10/12/19 outside CTA abdomen/pelvis IMPRESSION: Two left renal arteries; active extravasation of varying degree from mid to lower pole multiple branches (4-5) of the anteroinferior left renal artery. Successful angiography and embolization of the site of brisk active extravasation--possibly bleeding into her known left renal cyst--at the inferoanterior left renal artery inferolateral subsegmentalbranch to lower pole. Other multiple sites of active extravasation were noted to be slow-flow, with the two most suspicious sites interrogated and this finding confirmed on DSA. Given these findings, it was decided that the risk of harm to the [place] renal parenchyma in this patient with existing renal insufficiency exceeded the likely gain from embolization of multiple sites at this time. RECOMMENDATIONS: Given the embolization of the major site of active extravasation (left renal artery, lower pole branch, inferoanterior left renal artery inferolateral subsegmental branch to lower pole) but non-embolization of other sites of slow- flow active extravasation in order to spare renal parenchyma, IR recommendation is to not restart anticoagulation/antiplatelets except under very close monitoring and with a low threshold to discontinue them. Per her family, the patient's Xarelto is for treating atrial fibrillation which is intermittent. Itmay be helpful to explore other options for decreasing stroke risk, such as cardiac ablation and/orleft atrial appendage closure. This patient has a difficult situation. Any future anticoagulation/antiplatelets must be carefully weighed against her bleeding risk--particularly as noted at this left kidney--and potential further loss of renal parenchyma and renal function if additional renal tissue must be sacrificed by embolization. MRI renal lesion protocol without and with IV contrast, perhaps in a day or two post-procedure, will likely be helpful to assess for any underlying occult renal mass. If the patient remains hemodynamically stable, the large perirenal hematoma can be percutaneously drained after about 2-3 weeks to try to aid recovery of the remaining left renal parenchyma, as well as for patient comfort. COMMUNICATION: The case findings were discussed with the patient's family, son Jesus Manuel and daughter Caitlyn, in person after the case. These findings were discussed by executive vice president and chief financial officer Dr. Ramos Wyatt with trauma surgery ICU member Dr. Shaw at 0755 hours on 10/13/2019. Electronic Signatures: Diandra Braden MD (Attending) (Signed on 16-Oct-19 21:34) Authored Last Updated: 16-Oct-19 21:34 by Diandra Braden MD (Attending) * Interim Summary - Evy Bishop - 10/15/2019 12:00 AM EST [facility] ICU Transfer Note 10/15/19 Nam Mays was transferred from OSH for spontaneous retroperitoneal bleed with active extrav on CTA. She underwent embolization by IR and was resuscitated in our ICU. Xarelto for a-fib is being held given recent procedure. Had urinary retention and CRISTINE which have resolved. Final anticoagulant plan pending. Evy Bishop MD General Surgery, PGY1 Pager: [phone] Electronic Signatures: Evy Bishop MD (Resident) (Signed on 15-Oct-19 22:48) Authored Last Updated: 15-Oct-19 22:48 by Evy Bishop MD (Resident) * Social Care Assessment Summary - Caden Szymanski MD - 10/14/2019 12:00 AM EST Patient Name: Soraida STYLES Date of : 1950 Progress Note Progress Note Has Discharge Plan Changed? If Yes, Please Describe Change and Provide Details in Additional Comments Box Below. Answers: Yes now with acute rehab recs Is the Patient Aware of the Change in Discharge Plan? Answers: Yes Additional Comments Notes: Pt remains in ICU at this time. PT/OT rec acute rehab. SW spoke with pt and dtr at bedside today. Pt came from [facility] and refuses to resume rehab there. She is agreeable to [facility] referral. Referral made on this day via [employer]. SW to continue to follow for transition to rehab once medically ready and [facility] bed available. Electronically signed by: Leydi Taylor * Interim Summary - Deng Poole - 10/13/2019 12:00 AM EST Patient is critically ill and continues to require ICU care. Patient was admitted overnight for a retroperitoneal hematoma. patient is on xeralto for Afib. Patient was reversed and taken by IR for embolization. Patient is in lot of pain after procedure. Neuro: 15. Scheduled Tylenol with PRN Oxy and Diludid Cardio: Sinus tachycardia likley secondary to pain. Hx of A fib on xeralto Resp: On 4L NC. Hx of COPD with 2L of O2 at home. Continue home meds and nebs GI: NPO until this evening. : Cr stable, IOP 800, DC bond Heme: H/H stable. Continue to monitor with q4hr checks ID: WBC 21, downtrending from 25 Endo: hx of DM. Sliding scale Insulin Hold SQH given the retroperitoneal hematoma Lines: 2 PIVs Electronic Signatures: Deng Poole MD (Attending) (Signed on 14-Oct-19 07:59) Co-Signer Alvaro Gu MD (Resident) (Signed on 13-Oct-19 16:17) Authored Last Updated: 14-Oct-19 07:59 by Deng Poole MD (Attending) * Social Care Assessment Summary - Caden Szymanski MD - 10/13/2019 12:00 AM EST Patient Name: Soraida STYLES Date of : 1950 Initial Evaluation Note Initial Evaluation Note Information Obtained From: Answers: Patient Current Living Situation Answers: Family Pt's son and dtr in law live with pt. However pt has been in subacute rehab since 09/15/19. Dwelling Type Answers: House - Single Floor Housing Circumstances - Select All That Apply Answers: None applicable What is Patient's Plan at Discharge Answers: [facility] Facility May return to [facility] to complete subacute rehab Who Will Provide Assistance Post-Discharge? Answers: Facility [facility], Answers: Family Pt's son Brandon Sandhu [phone] How Many Hours is/are the Caregiver(s) Available? Answers: 24 Hours Functional Status Prior to Hospitalization Answers: Dependent Does Patient Have Home Health? If Yes, Specify Home Health Agency. Answers: No Does the Patient Have Home Infusion or Dialysis? If Yes, Specify Agency. Answers: No Home Infusion, Answers: No Dialysis Does Patient Have Any of the Following Hospital Equipment or DME? If Yes, Specify Type of Equipment/DME. Answers: Oxygen O2 concentrator for pm use. 2L Provided by [facility] Healthcare - [facility] Does Patient Have Current DME Provider? If Yes, Specify Company. Answers: Yes [facility] [place] Does Patient have a Primary Care Provider? Answers: Yes (if not listed or incorrect, please place Change ADT order in [facility] for registration to update PCP) Transportation Home at Time of Discharge Answers: Family/Friend Transportation to Follow up Appointments Answers: Family or Friend will Provide Does Patient Have Living Will/Advance Directives? If Yes, Instruct Patient/Family to Provide a Copy. Answers: No Does Patient Have a Power of Medical Chemist? If Yes, Please Specify Who and Instruct Patient/Family to Provide a Copy of Form. Answers: No Medical POA, Answers: No Financial POA Does Patient Have a Guardian? If Yes, Please Specify Who and Request a Copy of Legal Form. Answers: No Additional Comments: Notes: Pt is a 69 y/o female admitted to 10/13/19 for concern of flank pain. pt was found to have retroperitoneal bleed which was embolized by IR upon admission. Pt currently in ICU on 4L NC. SW completed initial eval with pt. Pt informs she has been receiving subacute rehab at [facility] since 09/15/19 and was due for d/c home yesterday. Pt lives in her own home with her son and his family also living with her. So is Brandon Sandhu [phone]. Pt's dtr is Caitlyn Nunez [phone]. Pt reports PCP is Dano Romero in [place], [place] and she carries Medicare A/B. Home pharm is [facility] in [place]. Pt reports home O2 at night with 2L NC and uses a concentrator provided by [facility] in [place]. In the event that further rehab is needed upon d/c, pt is comfortable with the plan of returning to [facility] to complete rehab if possible. SW left vm message today with [facility] to determine if pt may return there upon d/c. SW to continue to follow for d/c planning needs. Electronically signed by: Leydi Taylor * Pre-Procedure Assessment - Diandra Braden - 10/13/2019 12:00 AM EST Pre-Procedure Physician Assessment and Sedation Plan: Pre-Procedure Physician Assessment and Sedation Pl: Pre-Procedure Diagnosis: Left retroperitoneal bleed. Procedure to be performed: Angiogram and embolization. Allergies: IV Contrast: Unknown Cipro: Unknown Codeine: Unknown Penicillin: Anaphylaxis Metformin: Other Airway Assessment: Mallampati ClassificationClass III: Soft and hard palate and base of the uvula are v Temperature, HR, etc.: Vital Signs: * Temperature F97.5 degrees F(1) * Temperature Celcius 36.38 degrees C * Temperatureoral (2) * Heart Rate 117 bpm(1) * Heart Ratecardiac monitor (3) * Cardiac RhythmSinus tach(3) * [id number] mm Hg(1) * Mklhsxeep71 mm Hg(1) * BP Noninvasive Mean93 mm Hg(1) * Respiratory Rate 33 breaths per minute(1) * Pulse Oximetry SpO2 (%) 93 percent hemoglobin(1) History and Physical Examination: Other Findings: Mild distress, Tachycardic but regular rate, symmetric bilateral lung sounds. Pre-Sedation RISK Assessment: * History of gastro-esophageal Refluxyes Medication controlled * History of Sleep Apneayes BiPaP with pressures of 12 cm H2O * History of Snoringno * Presence of Loose Teethno * Presence of dental appliance and/or oral piercingno * Recent Upper Respiratory Infection or feverno * Seizure Disorderno * History of Neurological Conditionno * History of Heart Diseaseyes Afib * History of Asthmayes Medication controlled, not used rescue inhaler in last 3 yrs * History of prematurity < 37 weeks / Gestational age at birthno * Developmental delayno * Previous problems with sedation or surgeryno * Previous Family History of problems with sedation or surgeryno * Previous adverse reaction to contrast?No * Currently taking any anticoagulant or antiplatelet medication?No PS3-PS5 Anesthesia Consult Generally Recommended: * ASA ClassificationPS3: patient with severe systemic disease Sedation and Procedure Plan: * Sedation Planlight sedation moderate sedation * Procedure Planproceed as planned Home Medications: MedicationInstructionsSubmitted By oxyCODONE 5 mg oral tablet1 tab(s) orally every 4 hours, As needed, Use for SEVERE pain. For anticipated increase in pain, e.g. dressing change, physical therapy. Donis WILDER MD, Rashi Macrobitc capsule macrocrystals-monohydrate 100 mg1 cap orally 2 times a day x 7 days Mat Grant dilTIAZem 120 mg/24 hours oral capsule, extended release1 cap(s) orally once a Tino Quezada GlipiZIDE XL 5 mg oral tablet, extended release1 tab(s) orally once a day with breakfastCharanjit Dyer I diazePAM 5 mg oral tablet1 tab(s) orally once a Charanjit Quezada I rosuvastatin 10 mg oral tablet1 tab(s) orally once a Charanjit Quezada I olmesartan 20 mg oral tablet1 tab(s) orally once a Charanjit Quezada I Symbicort 160 mcg-4.5 mcg/inh inhalation aerosol2 puff(s) inhaled 2 times a Charanjit Quezada I azelastine 205.5 mcg/inh (0.15%) nasal spray2 spray(s) nasal 2 times a Charanjit Quezada I Flonase 50 mcg/inh nasal spray1 spray(s) nasal once a Charanjit Quezada I omeprazole 20 mg oral delayed release capsule1 cap(s) orally once a dayCharanjit Dyer I Electronic Signatures: Diandra Braden MD (Attending) (Signed 18-Oct-19 19:36) Co-Signer: Pre-Procedure Physician Assessment and Sedation Plan Ramos Wyatt MD (Resident) (Signed 13-Oct-19 04:00) Authored: Pre-Procedure Physician Assessment and Sedation Plan Last Updated: 18-Oct-19 19:36 by Diandra Braden MD (Attending) * Pre-Procedure Assessment - Caden Szymanski MD - 10/13/2019 12:00 AM EST Time-Out Statements: This procedure was performed by Embolization of left retroperitoneal bleed. Time-Out is required for all procedures performed in any location, including the bedside. Site marking is required for all procedures with right/left distinction, multiple structures (as in fingers and toes), or levels (as in spinal procedures). Time-Out was called at 04:08. Electronic Signatures: Yumiko Lozada RN (Nurse) (Signed 13-Oct-19 04:52) Authored: Time Out for Procedure Last Updated: 13-Oct-19 04:52 by Yumiko Lozada RN (Nurse) * ED Notes - Caden Szymanski MD - 10/13/2019 12:00 AM EST Registration:: ED Presentation: * ED Arrival Date & Time:13-Oct-2019 01:15 * Reason for Visit:RETRETROPERITONEAL HEMORRHAGE Disposition: : Boarding Evaluation: * Will this patient be boarding in the ED?yes * What location is the patient boarding for?ICU Electronic Signatures: Chey Velez RN (Nurse) (Signed 13-Oct-19 01:47) Authored: Disposition: Neetu Adame (Patient Registration) (Signed 13-Oct-19 01:20) Authored: Registration: Last Updated: 13-Oct-19 01:47 by Agustin PICHARDO, Chey Karimi (Nurse) * ED Notes - Khloe Li - 10/13/2019 12:00 AM EST Evaluation: - CHIEF COMPLAINT: retroperitoneal hemorrhage HISTORY OF PRESENT ILLNESS: 69-year-old female with a history of AFib on Eliquis, hypertension, hyperlipidemia, COPD on 2 L at baseline presents emergency department from the outside hospital with a retroperitoneal hemorrhage. She states she began having left-sided flank pain about 2 days ago and has continued to increase so she went to the outside hospital to be evaluated today. She reports she has had some nausea, no vomiting. Was recently treated for UTI. Flank pain is constant, 10/10, nothing makes better, any movement makes worse. No recent falls or trauma. She denies any other associated symptoms or complaints at this time. PAST MEDICAL HISTORY: Per HPI PAST SURGICAL HISTORY: Reviewed, no recent abdominal surgeries ALLERGIES: Reviewed per nursing records. SOCIAL HISTORY: Denies current tobacco, alcohol, or recreational drug use. FAMILY MEDICAL HISTORY: Reviewed with patient and not pertinent REVIEW OF SYSTEMS: All systems were reviewed with the patient and negative except as noted in the HPI. VITALS: Reviewed per chart PHYSICAL EXAM: GENERAL: Obese, chronically ill appearing, uncomfortable on exam HEENT: Normocephalic, atraumatic. PERRL. Mucous membranes moist NECK: No LAD, neck supple, no tracheal deviation HEART: Regular rhythm, no murmurs, gallops, or rubs appreciated LUNGS: Clear bilaterally with normal effort and good air movement. No wheezes, rales, or rhonchi ABDOMEN: Soft, Tenderness to palpation of the left flank and left upper quadrant, Bowel sounds present. EXTREMITIES: Moving all four extremities with no acute deformity or joint effusions SKIN: Warm, dry, well-perfused, no rashes NEURO: Alert, awake, and oriented to person, place, and time. Grossly nonfocal with intact strengthand sensation to bilateral upper and lower extremities LABS/IMAGING: Reviewed and interpreted MEDICAL DECISION MAKING: Patient was seen and examined with Dr. Gutierrez. In summary, this is a 69-year-old female with a history of AFib on Eliquis, hypertension, hyperlipidemia, COPD on 2 L at baseline presents emergency department from the outside hospital with a retroperitoneal hemorrhage. She is uncomfortable but hemodynamically stable on exam. CT scan from outside hospital personally reviewed showing left-sided retroperitoneal hemorrhage. She has not given any blood products at the outside hospital. Given this, plan to obtain CBC, CMP, coags, type and screen, crossmatch, treat pain withmorphine, consult surgery and then reassess. On reevaluation, she remains stable. Pain relief with medication. She will be admitted to [facility] surgery for further evaluation, labs pending. IMPRESSION: Left-sided retroperitoneal hemorrhage DISPOSITION: Admit Orders: Orders: * Basic Metabolic Panel, Lab Information: [id number], 13-Oct-2019, Collected, Standard * Hemogram, Lab Information: [id number], 13-Oct-2019, Results Received, Standard * Magnesium Level, Lab Information: [id number], 13-Oct-2019, Collected, Standard * Phosphorus, Lab Information: [id number], 13-Oct-2019, Collected, Standard * APTT (PTT), Lab Information: [id number], 13-Oct-2019, Collected, Standard * Clottable Fibrinogen, Lab Information: [id number], 13-Oct-2019, Collected, Standard * Prothrombin Time, Lab Information: [id number], 13-Oct-2019, Collected, Standard * Whole Blood TEG CK, 13-Oct-2019, Collected, Standard * HYDROmorphone Inj., Solution [Ordered as DILAUDID INJ.] Dose = 0.5 MG IntraVenously once PRN Pain unresponsive to other medications/interventions AND inability to take oral medications. Hold for sedation. IV Push rate 0.25 mg/min.; In telemetry/acute care areas: max dose of 0.5 mg IV Push every 20 minutes. If 1.5 mg/hour is reached, notify MD for Acute Pain Service consult or FARM MACH[employer]ERY SET UP MECHANIC/morphine drip order.,13-Oct-2019, Completed, Standard * Acetaminophen, Tablet [Known as TYLENOL oral] Dose = 650 MG Oral every 4 hours, 13-Oct-2019, Active, Standard * Ondansetron Inj., [Known as ZOFRAN IV] Dose = 4 MG IntraVenously every 6 hours PRN nausea/vomiting, 13-Oct-2019, Active, Standard * ED Consult Request, SGE - Surgery / Surg Emerg Gen, 13-Oct-2019, Completed, Standard Attending Attestation: I saw and evaluated the patient with the resident/fellow. I discussed the case with the resident/fellow and agree with the findings and plan as documented. Electronic Signatures: Khloe Li MD (Attending) (Signed 13-Oct-19 01:52) Authored: ATTENDING ATTESTATION/ CRITICAL CARE CHARGING Co-Signer: EVALUATION Ronen Poole MD (Resident) (Signed 13-Oct-19 01:45) Authored: EVALUATION, Orders Last Updated: 13-Oct-19 01:52 by Khloe Li MD (Attending) * ED Notes - ProviderCaden MD - 10/13/2019 12:00 AM EST Composite Section: Call Information: * Call date/time:2019-10-13 00:09:55 -05:00 * Medical Reason for Transferretroperitoneal hemorrhage Patient Demographics: * Nam Craig * :1950 * Age69 * GenderFemale * Current Bed TypeER Referring Information: * Vernell Ayad * [facility] * Summary/Med Hxretroperitoneal hemorrhage ED Information: * Mode of TransportGround * Accepting Bennett LOPEZ, Renny Cisse * Expected Arrival date/time:2019-10-13 01:00:00 -05:00 * [id number] * Visit [id number] * Arrival date/time:2019-10-13 01:13:34 -05:00 Nurse Report: * Chief Complaintretretroperitoneal hemorrhage * Report date/time:2019-10-13 00:30:00 -05:00 * HR117 * [id number] * BP164/101 * GCS15 * Allergiesmultiple, contrast dye * Ddxrau06r LAC * I&O1L NS * Medications Givenfentanyl dilaudid kcentra zofran benadryl solumedrol * Reportright flank pain, no report of any trauma, came from [facility] there for rehab for respiratory issues, OSH unable control pain CT- retroperitoneal hemorrhage with active arterial extrav [id number] Hx: DM, COPD, HTN, afib, cataracts, cellulitis, GERD, vasculitis, arthritis, HL, anxiety, depression, cpap at night Provider Report: * Documentation Audit:: <13-Oct-2019 00:14:05> scmservices: { summaryMedHx : retroperitoneal hemorrhage , acceptingMD_value : Alonzo LOPEZ, Renny Cisse } <13-Oct-2019 00:28:09> ldsnow2: { ukTransport : Ground , chiefComplaint : retroperitoneal hemo rrhage , reportTime : 5574-34-27E23:30:00.000Z } <13-Oct-2019 00:29:21> glri650: { ukTransport : Ground , chiefComplaint : retretroperitoneal h emorrhage , heartRate :117, OxygenSaturation :93, systolicBP :164, diastolicBP : 101, GCS : 15 , allergies : multiple, contrast dye , access : 18g LAC , IntakeOutput : 1L NS , NurseReport : right flank pain, no report of any trauma, came from [facility] there for rehab for respiratory issues, OSH unable control pain\nCT- retroperitoneal hemorrhage with active arterial extrav 15d70b0\nHx: DM, COPD, HTN, afib, cataracts, cellulitis, GERD, vasculitis, arthritis, HL, anxiety, depression, cpap at night , expectedArrival : 9905-12-95Q30:00:00.000Z , reportTime : 0337-16-77D29:30:00.0 00Z } Electronic Signatures: Neetu Adame (Patient Registration) (Signed 13-Oct-19 01:56) Authored: Composite Section Last Updated: 13-Oct-19 01:56 by Neetu Adame (Patient Registration) * Consults - Renny Rosado - 10/13/2019 12:00 AM EST Consultation Service: Service/ Team: SGE - Surgery / Surgery Blue Team C. Consult Information: * Consult Requested Date/[id number] 01:22 * Consult Completed Date/ 01:22 Chief Complaint: Requesting ServiceED Reason for ConsultRetroperitoneal bleed Consult Note: - Surgery History and Physical: 13 October 2019 Referring Physician : Ronen Poole cc : Flank pain HPI: 69yfemale on xarelto at home last dose taken on Thursday who is transferred to [facility] for IR embolization of retroperitoneal bleed. She presents for Right flank pain and received CTA at OSH showing [id number] cm retroperitoneal hematoma with active artrial extravasation. She received Kcentra at OSH. Hemoglobin normal 11.7 at OSH Of note she was recently at OSH and intubated for respiratory failure Medications:[retrieved for NAM AMADOR at 13 Oct 2019 01:22]: Macrobid capsule macrocrystals-monohydrate 100 mg 1 cap orally 2 times a day x 7 days azelastine 205.5 mcg/inh (0.15%) nasal spray 2 spray(s) nasal 2 times a day Flonase 50 mcg/inh nasal spray 1 spray(s) nasal once a day dilTIAZem 120 mg/24 hours oral capsule, extended release 1 cap(s) orally once a day olmesartan 20 mg oral tablet 1 tab(s) orally once a day Symbicort 160 mcg-4.5 mcg/inh inhalation aerosol 2 puff(s) inhaled 2 times a day diazePAM 5 mg oral tablet 1 tab(s) orally once a day oxyCODONE 5 mg oral tablet 1 tab(s) orally every 4 hours, As needed, Use for SEVERE pain.anticipated increase in pain, e.g. dressing change, physical therapy. GlipiZIDE XL 5 mg oral tablet, extended release 1 tab(s) orally once a day with breakfast rosuvastatin 10 mg oral tablet 1 tab(s) orally once a day omeprazole 20 mg oral delayed release capsule 1 cap(s) orally once a day Allergies: Penicillin->Anaphylaxis; Cipro->Unknown Codeine->Unknown IV Contrast->Unknown Metformin->Other Past Surgical History: Laparoscopic cholecystectomy Hystrectomy Past 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: DM HTN Respiratory failure Hiatal hernia IgA Nephropathy Family History: Reviewed and found to be irrelevant Social History: denies tobacco use denies ETOH use Denies illicit drug use Review of Systems: A 14 point ROS was performed and the pertinent positives and negatives are documented in the HPI Physical Exam: Vital Signs: No vitals recorded in last 24 hours Constitutional: Morbidly obese. In mild distress Neurological: AAOx3, CN II- XII grossly intact bilaterally Head: Normocephalic, atraumatic, normal to inspection, normal to palpation Eyes: lids and conjunctiva normal, EOMI bilateral ENT: ears normal to external inspection, lips, teeth, and gums within normal limits Neck: without masses, trachea midline Respiratory: normal effort, no increased work of breathing CV: regular rate, mildly tachycardic GI: soft, non-tender, not rigid Lymphatics: no lymphadenopathy in neck, axilla, or inguinal region Musculoskeletal: full range of motion bilateral upper and lower extremities Labs:No lab data resulted in last 48 hours Radiology: OSH CT scan showing Assessment/Plan: 69yfemale transferred [facility] for arterial retroperitoneal hemorrhage #Retroperitoneal hemorrhage - Admit SGE - Consult IR - S/P Reversal at OSH - Stat labs - Type and cross DM - Sliding scale insulin Afib - Hold anticoagulation Attending Attestation Statement: I saw and evaluated the patient with the resident/fellow. I discussed the case with the resident/fellow and agree with the findings and plan as documented. Attending Physician Comments: NOAC with spontaneous RP bleed from kidney. Reversed with entra outside hospital, given plts herefor ASA use. To IR for embolization. I have discussed possible surgical need with patient and family. Electronic Signatures: Kyle North MD (Resident) (Signed 13-Oct-19 01:44) Authored: CONSULTATION SERVICE, EVALUATION Renny Rosado MD (Attending) (Signed 13-Oct-19 03:43) Authored: CRITICAL CARE CHARGING STATEMENT/ATTENDING ATTESTATION Co-Signer: CONSULTATION SERVICE, EVALUATION Last Updated: 13-Oct-19 03:43 by Renny Rosado MD (Attending) * Consults - Diandra Braden - 10/13/2019 12:00 AM EST Consultation Service: Service/ Team: XRY - Radiology. Requesting Attending Physician: Renny Rosado MD(Attending): Attending, Surgery - General, Medicine Chief Complaint: Requesting ServiceBlue surgery Reason for ConsultLeft retroperitoneal hematoma with active extravasation Consult Note: - Subjective: NAM STYLES is a 69y years old female with history of Afib on Xorelto, Asthma and DELL who presented to the OSH with left flank pain and a recent history of UTI. She was found to have a large left retroperitoneal hematoma with active extravasation in close proximity and with mass effect on the left kidney. The location and appearance makes an underlying renal angiomyolipoma plausible. The patient has been tachycardic with increased work of breathing and a relative drop in hemoglobin but has been holding her blood pressure. IR was consulted for possible embolization. The coagulation profile was reversed to some extent with her most recent coagulation parameters within limits for intervention. She has history of IV CT contrast allergy and was given solumedrol and benadryl prior to obtaining a CTA of her abdomen at the OSH. Physical Exam: GEN: NAD NEURO: Grossly intact CV: RRR. RESP: Nonlabored breathing ABD: SOFT SKIN: CDI EXT: FROM Chart review: No 04.Medical Hx recorded No 05.Surgical Hx recorded Penicillin->Anaphylaxis; Cipro->Unknown Codeine->Unknown IV Contrast->Unknown Metformin->Other BP 110/84 HR 117 R 33 T 97.5 (36.4) LABS (last 48h) [retrieved for NAM STYLES at 13 Oct 2019 03:47]: PT: 18.1 / PTT: x / INR: 1.5 [10/13 @ 01:35] 135 96 22 < 223 Ca: 9.0 P: 4.3 M.2 [10/13 @ 01:31] 4.5 23 1.35 WBC: 25.05 / Hb: 10.8 / Hct: 32.7 / Plt: 302 [10/13 @ 01:31] CONTINUOUS MEDS [retrieved for NAM STYLES at 13 Oct 2019 03:47]: D5W-LR (no additives) SCHEDULED MEDS [retrieved for NAM STYLES at 13 Oct 2019 03:47]: (Pharmacy) 1 EACH <see task> GivenOnce (Pharmacy) 1 EACH <see task> GivenOnce (Pharmacy) 1 EACH <see task> GivenOnce (Pharmacy) 1 EACH <see task> GivenOnce (Pharmacy) 1 EACH <see task> GivenOnce (Pharmacy) 1 EACH <see task> GivenOnce (Pharmacy) 1 EACH <see task> GivenOnce (Pharmacy) 3 EACH <see task> GivenOnce Acetaminophen 650 MG Oral every 4 hours MethylPREDNISolone Inj. 40 MG IntraVenously every 4 hours PRN MEDS [retrieved for NAM STYLES at 13 Oct 2019 03:47]: Dextrose 10% - 25 gm/250 mL (IVPB) 12.5 gram IntraVenous Piggy Back Per Glucose Monitoring Dextrose 10% - 25 gm/250 mL (IVPB) 25 gram IntraVenous Piggy Back Per Glucose Monitoring FentaNYL Inj 25 mcg IntraVenously once Flumazenil Inj. 0.2 MG IntraVenously Q2M Glucagon Inj. 1 MG IntraMuscular Per Glucose Monitoring Glucose 40% 1 tube Oral Per Glucose Monitoring Insulin Regular Inj. Human 100 units/mL (Correction Factor) units SubCutaneous every 6 hours Midazolam Inj. 0.5 MG IntraVenously once Naloxone Inj. 0.4 MG IntraVenously every 5 minutes Ondansetron Inj. 4 MG IntraVenously every 6 hours Assessment and Plan: Procedure planned: Angiographic evaluation for the source of left retroperitoneal hematoma and possible embolisation Imaging guidance: US and FLouro Anaesthesia: Cons Sedation Images and labs reviewed The patient does have contrast allergy and has been premedicated with the same premedication regimen she received at the OSH. Consent obtained. Patient understands the risks, benefits and alternatives to this emergent procedure. Will proceed. Thank You Ramos Wyatt IR Resident # [id number] [phone] Electronic Signatures: Dinadra Braden MD (Attending) (Signed 18-Oct-19 19:36) Co-Signer: EVALUATION, CONSULTATION SERVICE Ramos Wyatt MD (Resident) (Signed 13-Oct-19 03:56) Authored: EVALUATION, CONSULTATION SERVICE Last Updated: 18-Oct-19 19:36 by Diandra Braden MD (Attending) documented in this encounter Plan of Treatment Upcoming Encounters Date Type Department Care Team (Late st Contact Info) Description 08/08/2024 1:00 PM EST Office Visit [facility] Nephrology, Bone & Mineral Metabolism [address], [address] [place] [address] Diana Ahumada MD [address] [place] [address] 12/30/2024 10:15 AM EDT Office Visit [facility] [address] [place] [address] Luis Olivares MD [address] [address] Pending Results Name Type Priority Associated Diagnoses Date /Time Type and Screen Lab STAT 0 1:31 AM EST documented as of this encounter Procedures Procedure Name Priority Date/Time Associated Diagnosis Comments POCT GLUCOSE METER UNSOLICITED RESULTS Routine 10/24/2019 11:36 AM EST GLUCOSE POINT OF CARE DC Routine 10/24/2019 7:59 AM EST POCT GLUCOSE METER UNSOLICITED RESULTS Routine 10/23/2019 9:27 PM EST GLUCOSE POINT OF CARE DC Routine 10/23/2019 3:53 PM EST POCT GLUCOSE METER UNSOLICITED RESULTS Routine 10/23/2019 11:35 AM EST POCT GLUCOSE METER UNSOLICITED RESULTS Routine 10/23/2019 8:23 AM EST EXTRA TUBES Routine 10/23/2019 7:13 AM EST CBC W/O DIFFERENTIAL Routine 10/23/2019 7:13 AM EST GLUCOSE POINT OF CARE DC Routine 10/22/2019 9:09 PM EST POCT GLUCOSE METER UNSOLICITED RESULTS Routine 10/22/2019 5:31 PM EST POCT GLUCOSE METER UNSOLICITED RESULTS Routine 10/22/2019 11:55 AM EST POCT GLUCOSE METER UNSOLICITED RESULTS Routine 10/22/2019 8:13 AM EST CBC W/O DIFFERENTIAL Timed 10/22/2019 5:56 AM EST PHOSPHORUS, PLASMA Timed 10/22/2019 5: 56 AM EST MAGNESIUM, PLASMA Timed 10/22/2019 5:5 6 AM EST BASIC METABOLIC PANEL, PLASMA Timed 10/22/2019 5:56 AM EST POCT GLUCOSE METER UNSOLICITED RESULTS Routine 10/21/2019 8:54 PM EST POCT GLUCOSE METER UNSOLICITED RESULTS Routine 10/21/2019 4:16 PM EST POCT GLUCOSE METER UNSOLICITED RESULTS Routine 10/21/2019 11:24 AM EST POCT GLUCOSE METER UNSOLICITED RESULTS Routine 10/21/2019 8:21 AM EST EXTRA TUBES Routine 10/21/2019 3:26 AM EST CBC W/O DIFFERENTIAL Timed 10/21/2019 3:16 AM EST POCT GLUCOSE METER UNSOLICITED RESULTS Routine 10/20/2019 8:06 PM EST GLUCOSE POINT OF CARE DC Routine 10/20/2019 5:38 PM EST GLUCOSE POINT OF CARE DC Routine 10/20/2019 11:38 AM EST GLUCOSE POINT OF CARE DC Routine 10/20/2019 10:14 AM EST EXTRA TUBES Routine 10/20/2019 4:41 AM EST CBC W/O DIFFERENTIAL Timed 10/20/2019 4:24 AM EST PHOSPHORUS, PLASMA Timed 10/20/2019 4: 24 AM EST MAGNESIUM, PLASMA Timed 10/20/2019 4:2 4 AM EST BASIC METABOLIC PANEL, PLASMA Timed 10/20/2019 4:24 AM EST POCT GLUCOSE METER UNSOLICITED RESULTS Routine 10/19/2019 7:58 PM EST POCT GLUCOSE METER UNSOLICITED RESULTS Routine 10/19/2019 5:36 PM EST CBC W/O DIFFERENTIAL Timed 10/19/2019 3:02 PM EST BASIC METABOLIC PANEL, PLASMA Timed 10/19/2019 3:02 PM EST ECHO, ADULT TTE Routine 10/19/2019 1:44 PM EST POCT GLUCOSE METER UNSOLICITED RESULTS Routine 10/19/2019 12:55 PM EST POCT GLUCOSE METER UNSOLICITED RESULTS Routine 10/19/2019 8:39 AM EST POCT GLUCOSE METER UNSOLICITED RESULTS Routine 10/18/2019 11:10 PM EST GLUCOSE POINT OF CARE DC Routine 10/18/2019 6:38 PM EST GLUCOSE POINT OF CARE DC Routine 10/18/2019 4:21 PM EST GLUCOSE POINT OF CARE DC Routine 10/18/2019 12:38 PM EST POCT GLUCOSE METER UNSOLICITED RESULTS Routine 10/18/2019 8:04 AM EST POCT GLUCOSE METER UNSOLICITED RESULTS Routine 10/17/2019 9:31 PM EST POCT GLUCOSE METER UNSOLICITED RESULTS Routine 10/17/2019 5:43 PM EST POCT GLUCOSE METER UNSOLICITED RESULTS Routine 10/17/2019 3:11 PM EST POCT GLUCOSE METER UNSOLICITED RESULTS Routine 10/17/2019 12:44 PM EST POCT GLUCOSE METER UNSOLICITED RESULTS Routine 10/17/2019 8:43 AM EST CBC W/O DIFFERENTIAL STAT 10/17/2019 6:58 AM EST POCT GLUCOSE METER UNSOLICITED RESULTS Routine 10/16/2019 9:34 PM EST GLUCOSE POINT OF CARE DC Routine 10/16/2019 5:09 PM EST GLUCOSE POINT OF CARE DC Routine 10/16/2019 12:47 PM EST GLUCOSE POINT OF CARE DC Routine 10/16/2019 8:56 AM EST CBC W/O DIFFERENTIAL Timed 10/16/2019 1:00 AM EST PHOSPHORUS, PLASMA Timed 10/16/2019 1: 00 AM EST MAGNESIUM, PLASMA Timed 10/16/2019 1:0 0 AM EST BASIC METABOLIC PANEL, PLASMA Timed 10/16/2019 1:00 AM EST GLUCOSE POINT OF CARE DC Routine 10/15/2019 8:53 PM EST GLUCOSE POINT OF CARE DC Routine 10/15/2019 5:56 PM EST GLUCOSE POINT OF CARE DC Routine 10/15/2019 12:20 PM EST GLUCOSE POINT OF CARE DC Routine 10/15/2019 7:43 AM EST XR CHEST 1 VIEW Routine 10/15/2019 7:30 AM EST CBC W/O DIFFERENTIAL Routine 10/15/2019 6:09 AM EST COMPREHENSIVE METABOLIC PANEL, PLASMA Routine 10/15/2019 6:09 AM EST GLUCOSE POINT OF CARE DC Routine 10/14/2019 5:41 PM EST URIC ACID, URINE (SO) STAT 10/14/2019 2:27 PM EST UREA NITROGEN, RANDOM URINE STAT 10/14/2019 2:27 PM EST OSMOLALITY, URINE STAT 10/14/2019 2:2 7 PM EST CREATININE, RANDOM URINE STAT 10/14/2019 2:27 PM EST OSMOLALITY, SERUM STAT 10/14/2019 2:2 7 PM EST GLUCOSE POINT OF CARE DC Routine 10/14/2019 1:07 PM EST CBC W/O DIFFERENTIAL Timed 10/14/2019 12:08 PM EST GLUCOSE POINT OF CARE DC Routine 10/14/2019 10:22 AM EST CBC W/O DIFFERENTIAL Timed 10/14/2019 4:00 AM EST GLUCOSE POINT OF CARE DC Routine 10/14/2019 3:29 AM EST CBC W/O DIFFERENTIAL Timed 10/14/2019 12:20 AM EST PHOSPHORUS, PLASMA Timed 10/14/2019 12 :20 AM EST MAGNESIUM, PLASMA Timed 10/14/2019 12: 20 AM EST BASIC METABOLIC PANEL, PLASMA Timed 10/14/2019 12:20 AM EST CBC W/O DIFFERENTIAL STAT 10/13/2019 8:33 PM EST GLUCOSE POINT OF CARE DC Routine 10/13/2019 8:32 PM EST GLUCOSE POINT OF CARE DC Routine 10/13/2019 5:32 PM EST XR CHEST 1 VIEW Routine 10/13/2019 5:02 PM EST MULTI DRUG RESISTANCE TEST Routine 10/13/2019 4:32 PM EST CBC W/O DIFFERENTIAL STAT 10/13/2019 4:32 PM EST BLOOD GAS PANEL, VENOUS STAT 10/13/2019 4:32 PM EST CBC W/O DIFFERENTIAL STAT 10/13/2019 1:09 PM EST GLUCOSE POINT OF CARE DC Routine 10/13/2019 12:00 PM EST GLUCOSE POINT OF CARE DC Routine 10/13/2019 7:59 AM EST IR VIR HISTORICAL Routine 10/13/2019 7:1 8 AM EST IR VIR HISTORICAL Routine 10/13/2019 7:1 8 AM EST IR VIR HISTORICAL Routine 10/13/2019 7:1 8 AM EST IR VIR HISTORICAL Routine 10/13/2019 7:1 8 AM EST IR VIR HISTORICAL Routine 10/13/2019 7:1 8 AM EST IR VIR HISTORICAL Routine 10/13/2019 7:1 8 AM EST IR VIR HISTORICAL Routine 10/13/2019 7:1 8 AM EST IR VIR HISTORICAL Routine 10/13/2019 7:1 8 AM EST IR VIR HISTORICAL Routine 10/13/2019 7:1 8 AM EST IR VIR HISTORICAL Routine 10/13/2019 7:1 8 AM EST IR VIR HISTORICAL Routine 10/13/2019 7:1 8 AM EST IR VIR HISTORICAL Routine 10/13/2019 7:1 8 AM EST IR VIR HISTORICAL Routine 10/13/2019 7:1 8 AM EST IR VIR HISTORICAL Routine 10/13/2019 7:1 8 AM EST IR VIR HISTORICAL Routine 10/13/2019 7:1 8 AM EST EXTRA TUBES Routine 10/13/2019 6:25 AM EST CBC W/O DIFFERENTIAL Routine 10/13/2019 6:25 AM EST EXTRA TUBES Routine 10/13/2019 1:45 AM EST TEG GLOBAL HEMOSTASIS WITH LYSIS STAT 10/13/2019 1:35 AM EST APTT STAT 10/13/2019 1:35 AM EST PROTHROMBIN TIME(PT) / INR STAT 10/13/2019 1:35 AM EST FIBRINOGEN,QUANTITATIV E (CLOTTABLE) STAT 10/13/2019 1:35 AM EST CBC W/O DIFFERENTIAL STAT 10/13/2019 1:31 AM EST TYPE AND SCREEN STAT 10/13/2019 1:31 AM EST PHOSPHORUS, PLASMA STAT 10/13/2019 1: 31 AM EST MAGNESIUM, PLASMA STAT 10/13/2019 1:3 1 AM EST BASIC METABOLIC PANEL, PLASMA STAT 10/13/2019 1:31 AM EST documented in this encounter Results * (ABNORMAL) POCT glucose meter (10/24/2019 11:36 AM EST) POCT Glucose 251(H) 74 - 99 mg/dL SUNQUEST Comment: Accuracy [...] laboratory for testing. SPEC TYPE Capillary SUNQUEST 10/24/2019 11:3 6 AM EST 10/24/2019 11:41 AM EST us Otis Metzger MD LAB POINT OF CAR E TEST DOCKED DEVICE UNSOLICITED RESULTS Final Result Performing Organization Address City/[facility] Co de Phone Number SUNQUEST * (ABNORMAL) Glucose Point of Care. (10/24/2019 7:59 AM EST) Pathologist [facility] POCT Glucose 157(H) 74 - 99 mg/dL SUNQUEST Comment: Accuracy [...] laboratory for testing. SPEC TYPE Capillary SUNQUEST 10/24/2019 7:59 AM EST 10/24/2019 8:06 AM EST us Otis Metzger MD LAB BLOOD ORDERABLES Fin al Result Performing Organization Address City/[facility]/ZIP Co de Phone Number SUNQUEST * (ABNORMAL) POCT glucose meter (10/23/2019 9:27 PM EST) Pathologist [facility] POCT Glucose 162(H) 74 - 99 mg/dL SUNQUEST Comment: Accuracy [...] laboratory for testing. SPEC TYPE Capillary SUNQUEST 10/23/2019 9:27 PM EST 10/23/2019 9:30 PM EST us Otis Metzger MD LAB POINT OF CAR E TEST DOCKED DEVICE UNSOLICITED RESULTS Final Result Performing Organization Address [facility] Phone Number SUNQUEST * (ABNORMAL) Glucose Point of Care. (10/23/2019 3:53 PM EST) Pathologist [facility] POCT Glucose 200(H) 74 - 99 mg/dL SUNQUEST Comment: Accuracy [...] laboratory for testing. SPEC TYPE Capillary SUNQUEST 10/23/2019 3:53 PM EST 10/23/2019 4:00 PM EST Otis Metzger MD LAB BLOOD ORDERABLES Fin al Result Performing Organization Address [facility] Phone Number SUNQUEST * (ABNORMAL) POCT glucose meter (10/23/2019 11:35 AM EST) Pathologist [facility] POCT Glucose 239(H) 74 - 99 mg/dL SUNQUEST Comment: Accuracy [...] laboratory for testing. SPEC TYPE Capillary SUNQUEST 10/23/2019 11:3 5 AM EST 10/23/2019 11:41 AM EST Otis Metzger MD LAB POINT OF CAR E TEST DOCKED DEVICE UNSOLICITED RESULTS Final Result Performing Organization Address [facility] de Phone Number SUNQUEST * (ABNORMAL) POCT glucose meter (10/23/2019 8:23 AM EST) POCT Glucose 152(H) 74 - 99 mg/dL [...] laboratory for testing. SPEC TYPE Capillary SUNQUEST 10/23/2019 8:23 AM EST 10/23/2019 8:26 AM EST Otis Metzger MD LAB POINT OF CAR E TEST DOCKED DEVICE UNSOLICITED RESULTS Final Result Performing Organization Address [facility] Phone Number SUNQUEST * Extra Tubes (10/23/2019 7:13 AM EST) Pathologist [facility] Extra LAVENDER TOP TUBE. WHOLE BLOOD REFRIGERATED IN LAB 72 HOURS. SUNQUEST 10/23/2019 7:13 AM EST 10/23/2019 8:07 AM EST Otis Metzger MD LAB BLOOD ORDERABLES Fin al Result Performing Organization Address [facility] de Phone Number SUNQUEST * (ABNORMAL) CBC W/O Differential (10/23/2019 7:13 AM EST) WBC Count 11.97(H) 3.7 - 10.3 k/uL SUNQUEST RBC Count 2.86(L) 3.9 - 5.2 M/uL SUNQUEST HGB 8.2(L) 11.2 - 15.7 g/dL SUNQUEST HCT 27.4(L) 34 - 45 % SUNQUEST Platelet Count 389(H) 155 - 369 k/uL SUNQUEST MCV 96 79 - 98 fL SUNQUEST MCH 28.7 26 - 32 pg SUNQUEST MCHC 29.9(L) 30.7 - 35.5 g/dL SUNQUEST RDW 17.2(H) 12.4 - 14.9 % SUNQUEST MPV 9.2 8.8 - 12.5 fL SUNQUEST NRBC COUNT 0.6(H) 0 % SUNQUEST 10/23/2019 7:13 AM EST 10/23/2019 8:07 AM EST Otis Metzger MD LAB BLOOD ORDERABLES Fin al Result Performing Organization Address [facility] Phone Number SUNQUEST * (ABNORMAL) Glucose Point of Care. (10/22/2019 9:09 PM EST) Pathologist [facility] POCT Glucose 167(H) 74 - 99 mg/dL SUNQUEST Comment: Accuracy [...] laboratory for testing. SPEC TYPE Capillary SUNQUEST 10/22/2019 9:09 PM EST 10/22/2019 9:11 PM EST Otis Metzger MD LAB BLOOD ORDERABLES Fin al Result Performing Organization Address [facility] Phone Number SUNQUEST * (ABNORMAL) POCT glucose meter (10/22/2019 5:31 PM EST) POCT Glucose 186(H) 74 - 99 mg/dL [...] laboratory for testing. SPEC TYPE Capillary SUNQUEST 10/22/2019 5:31 PM EST 10/22/2019 5:36 PM EST Otis Metzger MD LAB POINT OF CAR E TEST DOCKED DEVICE UNSOLICITED RESULTS Final Result Performing Organization Address [facility] de Phone Number SUNQUEST * (ABNORMAL) POCT glucose meter (10/22/2019 11:55 AM EST) POCT Glucose 199(H) 74 - 99 mg/dL SUNQUEST Comment: Accuracy [...] laboratory for testing. SPEC TYPE Capillary SUNQUEST 10/22/2019 11:5 5 AM EST 10/22/2019 12:01 PM EST Otis Metzger MD LAB POINT OF CAR E TEST DOCKED DEVICE UNSOLICITED RESULTS Final Result Performing Organization Address [facility] Phone Number SUNQUEST * (ABNORMAL) POCT glucose meter (10/22/2019 8:13 AM EST) POCT Glucose 162(H) 74 - 99 mg/dL SUNQUEST Comment: Accuracy [...] laboratory for testing. SPEC TYPE Capillary SUNQUEST 10/22/2019 8:13 AM EST 10/22/2019 8:16 AM EST Otis Metzger MD LAB POINT OF CAR E TEST DOCKED DEVICE UNSOLICITED RESULTS Final Result Performing Organization Address [facility] de Phone Number SUNQUEST * (ABNORMAL) CBC W/O Differential (10/22/2019 5:56 AM EST) WBC Count 14.81(H) 3.7 - 10.3 k/uL SUNQUEST RBC Count 2.67(L) 3.9 - 5.2 M/uL SUNQUEST HGB 7.8(L) 11.2 - 15.7 g/dL SUNQUEST HCT 25.4(L) 34 - 45 % SUNQUEST Platelet Count 384(H) 155 - 369 k/uL SUNQUEST MCV 95 79 - 98 fL SUNQUEST MCH 29.2 26 - 32 pg SUNQUEST MCHC 30.7 30.7 - 35.5 g/dL SUNQUEST RDW 16.8(H) 12.4 - 14.9 % SUNQUEST MPV 9.3 8.8 - 12.5 fL SUNQUEST NRBC COUNT 0.9(H) 0 % SUNQUEST 10/22/2019 5:56 AM EST 10/22/2019 6:10 AM EST Historical Provider MD LAB BLOOD ORDERABLES Fadia l Result Performing Organization Address [facility] Phone Number SUNQUEST * Phosphorus, Plasma (10/22/2019 5:56 AM EST) Phosphorus, Plasma 3.5 2.5 - 4.5 mg/dL SUNQUEST 10/22/2019 5:56 AM EST 10/22/2019 6:12 AM EST Result [facility] Historical Provider LAB BLOOD ORDERABLES Fadia l Result Performing Organization Address [facility] Phone Number SUNQUEST * (ABNORMAL) Magnesium, Plasma (10/22/2019 5:56 AM EST) Magnesium, Plasma 1.5(L) 1.9 - 2.4 mg/dL SUNQUEST 10/22/2019 5:56 AM EST 10/22/2019 6:12 AM EST Historical Provider LAB BLOOD ORDERABLES Fadia l Result Performing Organization Address [facility] de Phone Number SUNQUEST * (ABNORMAL) Basic Metabolic Panel, Plasma (10/22/2019 5:56 AM EST) Glucose, Plasma 157(H) 74 - 99 mg/dL SUNQUEST BUN, Plasma 19 8 - 23 mg/dL SUNQUEST Creatinine, Plasma 0.67 0.60 - 1.10 mg/dL SUNQUEST BUN/Creatinine Ratio 28(H) 8 - 20 SUNQUEST Sodium, Plasma 135(L) 136 - 145 mmol/L SUNQUEST Potassium, Plasma 4.5 3.7 - 4.8 mmol/L SUNQUEST Chloride, Plasma 94(L) 97 - 107 mmol/L SUNQUEST CO2, Plasma 30(H) 22 - 29 mmol/L SUNQUEST Anion Gap 11 6 - 16 mmol/L SUNQUEST Calcium, Plasma 9.5 8.9 - 10.2 mg/dL SUNQUEST eGFR >60 [...] rapidly changing or patient is on dialysis. 10/22/2019 5:56 AM EST 10/22/2019 6:12 AM EST Historical Provider LAB BLOOD ORDERABLES Fadia ramirez Result SUNQUEST * (ABNORMAL) POCT glucose meter (10/21/2019 8:54 PM EST) POCT Glucose 171(H) 74 - 99 mg/dL [...] laboratory for testing. SPEC TYPE Capillary SUNQUEST 10/21/2019 8:54 PM EST 10/21/2019 9:01 PM EST Otis Metzger MD LAB POINT OF CAR E TEST DOCKED DEVICE UNSOLICITED RESULTS Final Result Performing Organization Address [facility] de Phone Number SUNQUEST * (ABNORMAL) POCT glucose meter (10/21/2019 4:16 PM EST) Pathologist [facility] POCT Glucose 194(H) [...] laboratory for testing. SPEC TYPE Capillary SUNQUEST 10/21/2019 4:16 PM EST 10/21/2019 4:21 PM EST us Otis Metzger MD LAB POINT OF CAR E TEST DOCKED DEVICE UNSOLICITED RESULTS Final Result Performing Organization Address [facility] de Phone Number SUNQUEST * (ABNORMAL) POCT glucose meter (10/21/2019 11:24 AM EST) Pathologist [facility] POCT Glucose 177(H) [...] laboratory for testing. SPEC TYPE Capillary SUNQUEST 10/21/2019 11:2 4 AM EST 10/21/2019 4:20 PM EST us Otis Metzger MD LAB POINT OF CAR E TEST DOCKED DEVICE UNSOLICITED RESULTS Final Result Performing Organization Address [facility] de Phone Number SUNQUEST * (ABNORMAL) POCT glucose meter (10/21/2019 8:21 AM EST) Pathologist [facility] POCT Glucose 163(H) 74 - 99 mg/dL [...] laboratory for testing. SPEC TYPE Capillary SUNQUEST 10/21/2019 8:21 AM EST 10/21/2019 9:10 AM EST Otis Metzger MD LAB POINT OF CAR E TEST DOCKED DEVICE UNSOLICITED RESULTS Final Result SUNQUEST * Extra Tubes (10/21/2019 3:26 AM EST) Extra GREEN TOP TUBE. PLASMA REFRIGERATED IN LAB 72 HOURS. SUNQUEST 10/21/2019 3:26 AM EST 10/21/2019 3:26 AM EST Otis Metzger MD LAB BLOOD ORDERABLES Fin al Result Performing Organization Address [facility] Co de Phone Number SUNQUEST * (ABNORMAL) CBC W/O Differential (10/21/2019 3:16 AM EST) WBC Count 18.34(H) 3.7 - 10.3 k/uL SUNQUEST RBC Count 2.89(L) 3.9 - 5.2 M/uL SUNQUEST HGB 8.5(L) 11.2 - 15.7 g/dL SUNQUEST HCT 28.0(L) 34 - 45 % SUNQUEST Platelet Count 499(H) 155 - 369 k/uL SUNQUEST MCV 97 79 - 98 fL SUNQUEST MCH 29.4 26 - 32 pg SUNQUEST MCHC 30.4(L) 30.7 - 35.5 g/dL SUNQUEST RDW 16.4(H) 12.4 - 14.9 % SUNQUEST MPV 9.6 8.8 - 12.5 fL SUNQUEST NRBC COUNT 1.5(H) 0 % SUNQUEST 10/21/2019 3:16 AM EST 10/21/2019 3:31 AM EST Jonnathan Dobson MD LAB BLOOD ORDERABLES Final Result Performing Organization Address [facility] de Phone Number SUNQUEST * (ABNORMAL) POCT glucose meter (10/20/2019 8:06 PM EST) [facility] POCT Glucose 186(H) 74 - 99 mg/dL [...] laboratory for testing. SPEC TYPE Capillary SUNQUEST 10/20/2019 8:06 PM EST 10/20/2019 8:10 PM EST us Otis Metzger MD LAB POINT OF CAR E TEST DOCKED DEVICE UNSOLICITED RESULTS Final Result Performing Organization Address [facility] Phone Number SUNQUEST * (ABNORMAL) Glucose Point of Care. (10/20/2019 5:38 PM EST) [facility] POCT Glucose 174(H) 74 - 99 mg/dL SUNQUEST Comment: Accuracy [...] laboratory for testing. SPEC TYPE Capillary SUNQUEST 10/20/2019 5:38 PM EST 10/20/2019 5:40 PM EST us Otis Metzger MD LAB BLOOD ORDERABLES Fin al Result Performing Organization Address [facility] de Phone Number SUNQUEST * (ABNORMAL) Glucose Point of Care. (10/20/2019 11:38 AM EST) [facility] POCT Glucose 247(H) 74 - 99 mg/dL SUNQUEST Comment: Accuracy [...] laboratory for testing. SPEC TYPE Capillary SUNQUEST 10/20/2019 11:3 8 AM EST 10/20/2019 11:40 AM EST us Otis Metzger MD LAB BLOOD ORDERABLES Fin al Result Performing Organization Address [facility] Phone Number SUNQUEST * (ABNORMAL) Glucose Point of Care. (10/20/2019 10:14 AM EST) POCT Glucose 224(H) 74 - 99 mg/dL SUNQUEST Comment: Accuracy [...] laboratory for testing. SPEC TYPE Capillary SUNQUEST 10/20/2019 10:1 4 AM EST 10/20/2019 10:15 AM EST Otis Metzger MD LAB BLOOD ORDERABLES Fin al Result Performing Organization Address [facility] Phone Number SUNQUEST * Extra Tubes (10/20/2019 4:41 AM EST) Pathologist [facility] Extra Blue top tube. Whole blood stored in lab for four hours. SUNQUEST 10/20/2019 4:41 AM EST 10/20/2019 4:41 AM EST Otis Metzger MD LAB BLOOD ORDERABLES Fin al Result Performing Organization Address [facility] Phone Number SUNQUEST * Phosphorus, Plasma (10/20/2019 4:24 AM EST) Pathologist [facility] Phosphorus, Plasma 3.1 2.5 - 4.5 mg/dL SUNQUEST 10/20/2019 4:24 AM EST 10/20/2019 4:48 AM EST Jonnathan Dobson MD LAB BLOOD ORDERABLES Final Result SUNQUEST * (ABNORMAL) Magnesium, Plasma (10/20/2019 4:24 AM EST) Magnesium, Plasma 1.5(L) 1.9 - 2.4 mg/dL SUNQUEST 10/20/2019 4:24 AM EST 10/20/2019 4:48 AM EST Jonnathan Dobson MD LAB BLOOD ORDERABLES Final Result Performing Organization Address [facility] Co de Phone Number SUNQUEST * (ABNORMAL) Basic Metabolic Panel, Plasma (10/20/2019 4:24 AM EST) Glucose, Plasma 146(H) 74 - 99 mg/dL SUNQUEST BUN, Plasma 16 8 - 23 mg/dL SUNQUEST Creatinine, Plasma 0.82 0.60 - 1.10 mg/dL SUNQUEST BUN/Creatinine Ratio 20 8 - 20 SUNQUEST Sodium, Plasma 136 136 - 145 mmol/L SUNQUEST Potassium, Plasma 4.3 3.7 - 4.8 mmol/L SUNQUEST Chloride, Plasma 95(L) 97 - 107 mmol/L SUNQUEST CO2, Plasma 32(H) 22 - 29 mmol/L SUNQUEST Anion Gap 9 6 - 16 mmol/L SUNQUEST Calcium, Plasma 9.3 8.9 - 10.2 mg/dL SUNQUEST eGFR >60 [...] rapidly changing or patient is on dialysis. 10/20/2019 4:24 AM EST 10/20/2019 4:48 AM EST Jonnathan Dobson MD LAB BLOOD ORDERABLES Final Result Performing Organization Address [facility] de Phone Number SUNQUEST * (ABNORMAL) CBC W/O Differential (10/20/2019 4:24 AM EST) WBC Count 16.35(H) 3.7 - 10.3 k/uL SUNQUEST RBC Count 2.70(L) 3.9 - 5.2 M/uL SUNQUEST HGB 7.9(L) 11.2 - 15.7 g/dL SUNQUEST HCT 26.0(L) 34 - 45 % SUNQUEST Platelet Count 403(H) 155 - 369 k/uL SUNQUEST MCV 96 79 - 98 fL SUNQUEST MCH 29.3 26 - 32 pg SUNQUEST MCHC 30.4(L) 30.7 - 35.5 g/dL SUNQUEST RDW 16.1(H) 12.4 - 14.9 % SUNQUEST MPV 9.6 8.8 - 12.5 fL SUNQUEST NRBC COUNT 1.2(H) 0 % SUNQUEST 10/20/2019 4:24 AM EST 10/20/2019 4:44 AM EST us Jonnathan Dobson MD LAB BLOOD ORDERABLES Final Result Performing Organization Address [facility] Phone Number SUNQUEST * (ABNORMAL) POCT glucose meter (10/19/2019 7:58 PM EST) POCT Glucose 146(H) 74 - 99 mg/dL [...] laboratory for testing. SPEC TYPE Capillary SUNQUEST 10/19/2019 7:58 PM EST 10/19/2019 8:05 PM EST Otis Metzger MD LAB POINT OF CAR E TEST DOCKED DEVICE UNSOLICITED RESULTS Final Result Performing Organization Address [facility] de Phone Number SUNQUEST * (ABNORMAL) POCT glucose meter (10/19/2019 5:36 PM EST) POCT Glucose 128(H) 74 - 99 mg/dL [...] laboratory for testing. SPEC TYPE Capillary SUNQUEST 10/19/2019 5:36 PM EST 10/19/2019 5:40 PM EST Otis Metzger MD LAB POINT OF CAR E TEST DOCKED DEVICE UNSOLICITED RESULTS Final Result SUNQUEST * (ABNORMAL) Basic Metabolic Panel, Plasma (10/19/2019 3:02 PM EST) Glucose, Plasma 214(H) 74 - 99 mg/dL SUNQUEST BUN, Plasma 16 8 - 23 mg/dL SUNQUEST Creatinine, Plasma 1.05 0.60 - 1.10 mg/dL SUNQUEST BUN/Creatinine Ratio 15 8 - 20 SUNQUEST Sodium, Plasma 136 136 - 145 mmol/L SUNQUEST Potassium, Plasma 4.7 3.7 - 4.8 mmol/L SUNQUEST Chloride, Plasma 96(L) 97 - 107 mmol/L SUNQUEST CO2, Plasma 29 22 - 29 mmol/L SUNQUEST Anion Gap 11 6 - 16 mmol/L SUNQUEST Calcium, Plasma 9.3 8.9 - 10.2 mg/dL SUNQUEST eGFR 52 SEE NOTE SUNQUEST eGFR, if AFR/AM >60 [...] rapidly changing or patient is on dialysis. 10/19/2019 3:02 PM EST 10/19/2019 3:14 PM EST Jonnathan Dobson MD LAB BLOOD ORDERABLES Final Result Performing Organization Address [facility] Co de Phone Number JONNY * (ABNORMAL) CBC W/O Differential (10/19/2019 3:02 PM EST) WBC Count 18.57(H) 3.7 - 10.3 k/uL SUNQUEST RBC Count 2.69(L) 3.9 - 5.2 M/uL SUNQUEST HGB 7.8(L) 11.2 - 15.7 g/dL SUNQUEST HCT 25.9(L) 34 - 45 % SUNQUEST Platelet Count 429(H) 155 - 369 k/uL SUNQUEST MCV 96 79 - 98 fL SUNQUEST MCH 29.0 26 - 32 pg SUNQUEST MCHC 30.1(L) 30.7 - 35.5 g/dL SUNQUEST RDW 15.8(H) 12.4 - 14.9 % SUNQUEST MPV 9.7 8.8 - 12.5 fL SUNQUEST NRBC COUNT 1.5(H) 0 % SUNQUEST 10/19/2019 3:02 PM EST 10/19/2019 3:13 PM EST Jonnathan Dobson MD LAB BLOOD ORDERABLES Final Result Performing Organization Address [facility] de Phone Number JONNY * Echo, Adult TTE (10/19/2019 1:44 PM EST) Anatomical Region Laterality Modality Ultrasound 10/19/2019 10:1 7 AM EST Narrative 10/19/2019 1:44 PM EST ?Study ID: [id number] ?Name: SANDHU PACK, NAM L ?: 1950 (M/d/yystaceyy) ? + + + + ?: ? : : ? : ?[employer] ? : ? : : ? : ?[place] ?: ? : : ? : ? [address] ?: ? : + + ? [place] [id number] ?+ + + ----- -+ :Name: NAM STYLES ? Study Date: 10/19/2019 10:17 AM ?BP: 130/78 mmHg: : ? Patient Location: A07C^[id number]^A ? HR: 106 ?? : :: 1950 (M/d/yyyy) ? Gender: Female ? Height: 61 in ??: :Age: 69 yrs ? Weight: 310 lb : :Reason For Study: afib ?BSA: 2.3 m2 ?: :History: afib ?: :Ordering Physician: Ct Schmidt MD ? : : ? : :Performed By: Shae Terry RCS ? : + ----- -+ Interpretation Summary The study was technically difficult. There is no recent echo study available for direct [id number] comparison. A complete two-dimensional transthoracic echocardiogram was performed (2D, M-mode, Doppler and color flow Doppler). Technically very difficult study due to habitus. MMode/2D Measurements & Calculations IVSd: 1.1 cm ? LVIDd: 5.1 cm ?ESV(Teich): 54.8 ml ? LVIDs: 3.6 cm ? LVPWd: 0.97 cm ? LV mass(C)d: 197.5 grams ? LA dimension: 3.9 cm ? LVOT diam: 2.0 cm ?LVOT area: 3.1 cm2 ? LVLd ap4: 8.3 cm ? EDV(MOD-sp2): 102.0 ml ? SV(MOD- sp4): 89.0 ml EDV(MOD-sp4): 132.0 ml ? LVLs ap2: 5.2 cm LVLs ap4: 7.2 cm ? ESV(MOD-sp2): 25.0 ml ESV(MOD-sp4): 43.0 ml ?EF(MOD-sp2): 75.5 % EF(MOD-sp4): 67.4 % Doppler Measurements & Calculations MV E max wood: 85.9 cm/sec ? MV dec time: 0.19 sec ?PA acc time: 0.07 sec MV A max wood: 82.9 cm/sec MV E/A: 1.0 ? PA pr(Accel): 48.8 mmHg . Left Ventricle The left ventricle is normal in size. There is no thrombus. There is normal left ventricular wall thickness. Left ventricular systolic function is normal, with estimated EF > 55%. The left ventricular wall motion is normal. . Right Ventricle The right ventricle is mildly dilated. There is normal right ventricular wall thickness. The right ventricular systolic function is normal. . Atria The left atrial volume index (ml/m2) is 'normal (16-34ml/m2)'. Right atrial size is normal. The interatrial septum is intact with no evidence for an atrial septal defect. . Mitral Valve The mitral valve is grossly normal. There is no mitral valve stenosis. There is mild mitral regurgitation. . Tricuspid Valve The tricuspid valve is not well visualized. . Aortic Valve The aortic valve appears to be anatomically normal (trileaflet). There is no aortic valvular vegetation. No hemodynamically significant valvular aortic stenosis. No aortic regurgitation is present. . Pulmonic Valve The pulmonic valve leaflets are thin and pliable; valve motion is normal. There is no pulmonic valvular stenosis. Mild pulmonic valvular regurgitation. . Great Vessels The aortic root is normal size. The pulmonary artery is normal size. . Pericardium/Pleural There is no pericardial effusion. . Diastolic LV function The E/e' ratio is most consistent with 'a normal' left atrial pressure. ?+---+ ?+---+ ?+--+ Reported by:+--+ Blessing Rutledge 10/19/2019 01:44 PM Procedure Note Blessing Rutledge - 01/04/2021 Study ID: [id number] Name: PERRYPACHECOSatcey Ramirez :1950 (M/d/yyyy) + + + + :: : : [facility] :: : : Samantha :: : : [address] :: + + [place] [phone] + + ----- -+ :Name: NAM STYLES Study Date: 10/19/2019 10:17 AM BP:130/78 mmHg: : Patient Location: [facility]^119^A^A HR:106 : :: 1950 (M/d/yyyy) Gender: FemaleHeight: 61 in : :Age: 69 yrsWeight: 310 lb : :Reason For Study: afibBSA: 2.3 m2 : :History: afib: :Ordering Physician: Ct Schmidt MD: :: :Performed By: Shae Terry, RCS: + ----- -+ Interpretation Summary The study was technically difficult. There is no recent echo studyavailable for direct znmq-bu-nptq comparison. A complete two-dimensional transthoracic echocardiogram was performed (2D, M-mode, Doppler and color flowDoppler). Technically very difficult study due to habitus. MMode/2D Measurements & Calculations IVSd: 1.1 cm LVIDd: 5.1 cm ESV(Teich):54.8 ml LVIDs: 3.6 cm LVPWd: 0.97 cm LV mass(C)d: 197.5 grams LA dimension: 3.9 cm LVOT diam: 2.0cm LVOT area: 3.1cm2 LVLd ap4: 8.3 cm EDV(MOD-sp2): 102.0 ml SV(MOD-sp4):89.0 ml EDV(MOD-sp4): 132.0 ml LVLs ap2: 5.2 cm LVLs ap4: 7.2 cm ESV(MOD-sp2): 25.0 ml ESV(MOD-sp4): 43.0 ml EF(MOD-sp2): 75.5 % EF(MOD-sp4): 67.4 % Doppler Measurements & Calculations MV E max wood: 85.9 cm/sec MV dec time: 0.19 sec PA acc time:0.07 sec MV A max wood: 82.9 cm/sec MV E/A: 1.0 PA pr(Accel): 48.8 mmHg . Left Ventricle The left ventricle is normal in size. There is no thrombus. There isnormal left ventricular wall thickness. Left ventricular systolic function is normal,with estimated EF > 55%. The left ventricular wall motion is normal. . Right Ventricle The right ventricle is mildly dilated. There is normal right ventricularwall thickness. The right ventricular systolic function is normal. . Atria The left atrial volume index (ml/m2) is 'normal (16-34ml/m2)'. Rightatrial size is normal. The interatrial septum is intact with no evidence for an atrialseptal defect. . Mitral Valve The mitral valve is grossly normal. There is no mitral valve stenosis.There is mild mitral regurgitation. . Tricuspid Valve The tricuspid valve is not well visualized. . Aortic Valve The aortic valve appears to be anatomically normal (trileaflet). There isno aortic valvular vegetation. No hemodynamically significant valvular aorticstenosis. No aortic regurgitation is present. . Pulmonic Valve The pulmonic valve leaflets are thin and pliable; valve motion is normal.There is no pulmonic valvular stenosis. Mild pulmonic valvular regurgitation. . Great Vessels The aortic root is normal size. The pulmonary artery is normal size. . Pericardium/Pleural There is no pericardial effusion. . Diastolic LV function The E/e' ratio is most consistent with 'a normal' left atrial pressure. +---+ +---+ +--+ Reported by:+--+ Blessing Rutledge 10/19/2019 01:44 PM Historical Provider CV ECHO PROCEDURES Final Result * (ABNORMAL) POCT glucose meter (10/19/2019 12:55 PM EST) [facility] POCT Glucose 255(H) 74 - 99 mg/dL SUNQUEST Comment: Accuracy [...] laboratory for testing. SPEC TYPE Capillary SUNQUEST 10/19/2019 12:5 5 PM EST 10/19/2019 1:00 PM EST Otis Metzger MD LAB POINT OF CAR E TEST DOCKED DEVICE UNSOLICITED RESULTS Final Result SUNQUEST * (ABNORMAL) POCT glucose meter (10/19/2019 8:39 AM EST) Pathologist [facility] POCT Glucose 142(H) 74 - 99 mg/dL [...] laboratory for testing. SPEC TYPE Capillary SUNQUEST 10/19/2019 8:39 AM EST 10/19/2019 8:40 AM EST us Otis Metzger MD LAB POINT OF CAR E TEST DOCKED DEVICE UNSOLICITED RESULTS Final Result Performing Organization Address [facility] de Phone Number SUNQUEST * (ABNORMAL) POCT glucose meter (10/18/2019 11:10 PM EST) POCT Glucose 144(H) 74 - 99 mg/dL [...] laboratory for testing. SPEC TYPE Capillary SUNQUEST 10/18/2019 11:1 0 PM EST 10/18/2019 11:15 PM EST us Otis Metzger MD LAB POINT OF CAR E TEST DOCKED DEVICE UNSOLICITED RESULTS Final Result Performing Organization Address [facility] Phone Number SUNQUEST * (ABNORMAL) Glucose Point of Care. (10/18/2019 6:38 PM EST) POCT Glucose 156(H) 74 - 99 mg/dL SUNQUEST Comment: Accuracy [...] laboratory for testing. SPEC TYPE Capillary SUNQUEST 10/18/2019 6:38 PM EST 10/18/2019 6:40 PM EST us Otis Metzger MD LAB BLOOD ORDERABLES Fin al Result Performing Organization Address [facility] de Phone Number SUNQUEST * (ABNORMAL) Glucose Point of Care. (10/18/2019 4:21 PM EST) [facility] POCT Glucose 158(H) 74 - 99 mg/dL [...] laboratory for testing. SPEC TYPE Capillary SUNQUEST 10/18/2019 4:21 PM EST 10/18/2019 4:25 PM EST Otis Metzger MD LAB BLOOD ORDERABLES Fin al Result Performing Organization Address [facility] Phone Number SUNQUEST * (ABNORMAL) Glucose Point of Care. (10/18/2019 12:38 PM EST) [facility] POCT Glucose 223(H) 74 - 99 mg/dL SUNQUEST Comment: Accuracy [...] laboratory for testing. SPEC TYPE Capillary SUNQUEST 10/18/2019 12:3 8 PM EST 10/18/2019 12:40 PM EST us Otis Metzger MD LAB BLOOD ORDERABLES Fin al Result Performing Organization Address [facility] de Phone Number SUNQUEST * (ABNORMAL) POCT glucose meter (10/18/2019 8:04 AM EST) [facility] POCT Glucose 146(H) 74 - 99 mg/dL [...] laboratory for testing. SPEC TYPE Capillary SUNQUEST 10/18/2019 8:04 AM EST 10/18/2019 8:05 AM EST us Otis Metzger MD LAB POINT OF CAR E TEST DOCKED DEVICE UNSOLICITED RESULTS Final Result Performing Organization Address [facility] de Phone Number SUNQUEST * (ABNORMAL) POCT glucose meter (10/17/2019 9:31 PM EST) POCT Glucose 146(H) 74 - 99 mg/dL [...] laboratory for testing. SPEC TYPE Capillary SUNQUEST 10/17/2019 9:31 PM EST 10/17/2019 9:35 PM EST Otis Metzger MD LAB POINT OF CAR E TEST DOCKED DEVICE UNSOLICITED RESULTS Final Result Performing Organization Address [facility] Phone Number SUNQUEST * (ABNORMAL) POCT glucose meter (10/17/2019 5:43 PM EST) POCT Glucose 151(H) 74 - 99 mg/dL SUNQUEST Comment: Accuracy [...] laboratory for testing. SPEC TYPE Capillary SUNQUEST 10/17/2019 5:43 PM EST 10/17/2019 5:45 PM EST us Otis Metzger MD LAB POINT OF CAR E TEST DOCKED DEVICE UNSOLICITED RESULTS Final Result Performing Organization Address [facility] de Phone Number SUNQUEST * (ABNORMAL) POCT glucose meter (10/17/2019 3:11 PM EST) Pathologist [facility] POCT Glucose 161(H) 74 - 99 mg/dL SUNQUEST Comment: Accuracy [...] laboratory for testing. SPEC TYPE Capillary SUNQUEST 10/17/2019 3:11 PM EST 10/17/2019 3:15 PM EST us Otis Metzger MD LAB POINT OF CAR E TEST DOCKED DEVICE UNSOLICITED RESULTS Final Result Performing Organization Address [facility] Phone Number SUNQUEST * (ABNORMAL) POCT glucose meter (10/17/2019 12:44 PM EST) [facility] POCT Glucose 214(H) 74 - 99 mg/dL [...] laboratory for testing. SPEC TYPE Capillary SUNQUEST 10/17/2019 12:4 4 PM EST 10/17/2019 12:50 PM EST us Otis Metzger MD LAB POINT OF CAR E TEST DOCKED DEVICE UNSOLICITED RESULTS Final Result Performing Organization Address [facility] de Phone Number SUNQUEST * (ABNORMAL) POCT glucose meter (10/17/2019 8:43 AM EST) [facility] POCT Glucose 120(H) 74 - 99 mg/dL [...] laboratory for testing. SPEC TYPE Capillary SUNQUEST 10/17/2019 8:43 AM EST 10/17/2019 8:50 AM EST Otis Metzger MD LAB POINT OF CAR E TEST DOCKED DEVICE UNSOLICITED RESULTS Final Result SUNQUEST * (ABNORMAL) CBC W/O Differential (10/17/2019 6:58 AM EST) WBC Count 13.43(H) 3.7 - 10.3 k/uL SUNQUEST RBC Count 2.48(L) 3.9 - 5.2 M/uL SUNQUEST HGB 7.2(L) 11.2 - 15.7 g/dL SUNQUEST HCT 23.9(L) 34 - 45 % SUNQUEST Platelet Count 349 155 - 369 k/uL SUNQUEST MCV 96 79 - 98 fL SUNQUEST MCH 29.0 26 - 32 pg SUNQUEST MCHC 30.1(L) 30.7 - 35.5 g/dL SUNQUEST RDW 15.4(H) 12.4 - 14.9 % SUNQUEST MPV 9.5 8.8 - 12.5 fL SUNQUEST NRBC COUNT 0.8(H) 0 % SUNQUEST 10/17/2019 6:58 AM EST 10/17/2019 7:14 AM EST Jonnathan Dobson MD LAB BLOOD ORDERABLES Final Result Performing Organization Address City/[facility]/ZIP Co de Phone Number SUNQUEST * POCT glucose meter (10/16/2019 9:34 PM EST) POCT Glucose 99 74 - 99 mg/dL [...] laboratory for testing. SPEC TYPE Capillary SUNQUEST 10/16/2019 9:34 PM EST 10/16/2019 9:35 PM EST Otis Metzger MD LAB POINT OF CAR E TEST DOCKED DEVICE UNSOLICITED RESULTS Final Result Performing Organization Address [facility] Phone Number SUNQUEST * (ABNORMAL) Glucose Point of Care. (10/16/2019 5:09 PM EST) POCT Glucose 145(H) 74 - 99 mg/dL [...] laboratory for testing. SPEC TYPE Capillary SUNQUEST 10/16/2019 5:09 PM EST 10/16/2019 5:15 PM EST Otis Metzger MD LAB BLOOD ORDERABLES Fin al Result Performing Organization Address [facility] Phone Number SUNQUEST * (ABNORMAL) Glucose Point of Care. (10/16/2019 12:47 PM EST) Pathologist [facility] POCT Glucose 162(H) 74 - 99 mg/dL SUNQUEST Comment: Accuracy [...] laboratory for testing. SPEC TYPE Capillary SUNQUEST 10/16/2019 12:4 7 PM EST 10/16/2019 12:50 PM EST Otis Metzger MD LAB BLOOD ORDERABLES Fin al Result Performing Organization Address [facility] Phone Number SUNQUEST * (ABNORMAL) Glucose Point of Care. (10/16/2019 8:56 AM EST) POCT Glucose 102(H) 74 - 99 mg/dL [...] laboratory for testing. SPEC TYPE Capillary SUNQUEST 10/16/2019 8:56 AM EST 10/16/2019 9:15 AM EST Otis Metzger MD LAB BLOOD ORDERABLES Fin al Result Performing Organization Address [facility] de Phone Number SUNQUEST * Phosphorus, Plasma (10/16/2019 1:00 AM EST) Phosphorus, Plasma 3.0 2.5 - 4.5 mg/dL SUNQUEST 10/16/2019 1:00 AM EST 10/16/2019 3:32 AM EST Evy Bishop MD LAB BLOOD ORDERABLES Final Result Performing Organization Address [facility] Phone Number SUNQUEST * (ABNORMAL) Magnesium, Plasma (10/16/2019 1:00 AM EST) Magnesium, Plasma 2.6(H) 1.9 - 2.4 mg/dL SUNQUEST 10/16/2019 1:00 AM EST 10/16/2019 3:32 AM EST Evy Bishop MD LAB BLOOD ORDERABLES Final Result Performing Organization Address [facility] de Phone Number SUNQUEST * (ABNORMAL) Basic Metabolic Panel, Plasma (10/16/2019 1:00 AM EST) Glucose, Plasma 112(H) 74 - 99 mg/dL SUNQUEST BUN, Plasma 30(H) 8 - 23 mg/dL SUNQUEST Creatinine, Plasma 1.39(H) 0.60 - 1.10 mg/dL SUNQUEST BUN/Creatinine Ratio 22(H) 8 - 20 SUNQUEST Sodium, Plasma 141 136 - 145 mmol/L SUNQUEST Potassium, Plasma 4.7 3.7 - 4.8 mmol/L SUNQUEST Chloride, Plasma 102 97 - 107 mmol/L SUNQUEST CO2, Plasma 26 22 - 29 mmol/L SUNQUEST Anion Gap 13 6 - 16 mmol/L SUNQUEST Calcium, Plasma 9.0 8.9 - 10.2 mg/dL SUNQUEST eGFR 37 SEE NOTE SUNQUEST eGFR, [...] rapidly changing or patient is on dialysis. 10/16/2019 1:00 AM EST 10/16/2019 3:32 AM EST Evy Bishop MD LAB BLOOD ORDERABLES Final Result SUNQUEST * (ABNORMAL) CBC W/O Differential (10/16/2019 1:00 AM EST) WBC Count 16.23(H) 3.7 - 10.3 k/uL SUNQUEST RBC Count 2.47(L) 3.9 - 5.2 M/uL SUNQUEST HGB 7.3(L) 11.2 - 15.7 g/dL SUNQUEST HCT 23.2(L) 34 - 45 % SUNQUEST Platelet Count 315 155 - 369 k/uL SUNQUEST MCV 94 79 - 98 fL SUNQUEST MCH 29.6 26 - 32 pg SUNQUEST MCHC 31.5 30.7 - 35.5 g/dL SUNQUEST RDW 15.4(H) 12.4 - 14.9 % SUNQUEST MPV 9.8 8.8 - 12.5 fL SUNQUEST NRBC COUNT 0.2(H) 0 % SUNQUEST 10/16/2019 1:00 AM EST 10/16/2019 3:30 AM EST Evy Bishop MD LAB BLOOD ORDERABLES Final Result Performing Organization Address [facility] Phone Number SUNQUEST * (ABNORMAL) Glucose Point of Care. (10/15/2019 8:53 PM EST) POCT Glucose 122(H) 74 - 99 mg/dL SUNQUEST Comment: Accuracy [...] laboratory for testing. SPEC TYPE Capillary SUNQUEST 10/15/2019 8:53 PM EST 10/15/2019 8:55 PM EST Otis Metzger MD LAB BLOOD ORDERABLES Fin al Result Performing Organization Address [facility] Phone Number SUNQUEST * (ABNORMAL) Glucose Point of Care. (10/15/2019 5:56 PM EST) POCT Glucose 181(H) 74 - 99 mg/dL SUNQUEST Comment: Accuracy [...] laboratory for testing. SPEC TYPE Capillary SUNQUEST 10/15/2019 5:56 PM EST 10/15/2019 6:00 PM EST Otis Metzger MD LAB BLOOD ORDERABLES Fin al Result Performing Organization Address [facility] de Phone Number SUNQUEST * (ABNORMAL) Glucose Point of Care. (10/15/2019 12:20 PM EST) POCT Glucose 161(H) 74 - 99 mg/dL SUNQUEST Comment: Accuracy [...] laboratory for testing. SPEC TYPE Capillary SUNQUEST 10/15/2019 12:2 0 PM EST 10/15/2019 12:25 PM EST Otis Metzger MD LAB BLOOD ORDERABLES Fin al Result Performing Organization Address [facility] Phone Number SUNQUEST * (ABNORMAL) Glucose Point of Care. (10/15/2019 7:43 AM EST) [facility] POCT Glucose 147(H) 74 - 99 mg/dL SUNQUEST Comment: Accuracy [...] laboratory for testing. SPEC TYPE Capillary SUNQUEST 10/15/2019 7:43 AM EST 10/15/2019 7:45 AM EST Otis Metzger MD LAB BLOOD ORDERABLES Fin al Result Performing Organization Address [facility] Phone Number SUNQUEST * XR Chest 1 View (10/15/2019 7:30 AM EST) Anatomical Region Laterality Modality Chest Radiographic Juanita ging Narrative 10/15/2019 10:48 AM EST REQUESTING PHYSICIAN: ROGER TRAN REASON FOR EXAMINATION/PROCEDURE: RAD PDP:Y ??* ??eval volume overload EXAMINATION / PROCEDURE: CHEST 1 VIEW PA/AP PORTABLE Oct ??8 2019 07:30; ? CLINICAL INDICATION: Evaluate volume overload. HECTOR HNIQUE: CHEST 1 VIEW PA/AP PORTABLE COMPARISON: October 13, 2019 FINDINGS: Stable cardiac and mediastinal silhouettes. Small left pleural effusion and basal atelectasis. No pneumothorax. Increased right basal airspace disease. No pneumoth orax. Degenerative changes of the left shoulder. ?? IMPRESSION: Increased right basal airspace disease. Increased small left pleural effusion. CRITICAL RESULT: ?? No. COMMUNICATION: Per this written report. ATTESTATION: Not applicabl e. ?? Verified by: LAVELLE MCCARTHY M.D. on Oct 10:46A Transcribed by: PUMA on Oct 10:46A Dictated by: LAVELLE MCCARTHY M.D. on Oct 10:43A Procedure Note Lavelle Mccarthy - 12/31/2020 REQUESTING PHYSICIAN: ROGER TRAN REASON FOR EXAMINATION/PROCEDURE: RAD PDP:Y * eval volume overload EXAMINATION / PROCEDURE: CHEST 1 VIEW PA/AP PORTABLE Oct 15 2019 - 07:30; CLINICAL INDICATION: Evaluate volume overload. HECTOR HNIQUE: CHEST 1 VIEW PA/AP PORTABLE COMPARISON: October 13, 2019 FINDINGS: Stable cardiac and mediastinal silhouettes. Small left pleural effusion and basal atelectasis. No pneumothorax. Increased right basal airspace disease. No pneumoth orax. Degenerative changes of the left shoulder. IMPRESSION: Increased right basal airspace disease. Increased small left pleural effusion. CRITICAL RESULT: No. COMMUNICATION: Per this written report. ATTESTATION: Not applicabl e. Verified by: LAVELLE MCCARTHY M.D. on Oct 15 2019 10:46A Transcribed by: [facility] on Oct 15 2019 10:46A Dictated by: LAVELLE MCCARTHY M.D. on Oct 15 2019 10:43A us Roger Tran MD IMG XR PROCEDURES Final Resu lt * (ABNORMAL) Comprehensive Metabolic Panel, Plasma (10/15/2019 6:09 AM EST) Glucose, Plasma 148(H) 74 - 99 mg/dL SUNQUEST BUN, Plasma 36(H) 8 - 23 mg/dL SUNQUEST Creatinine, Plasma 1.78(H) 0.60 - 1.10 mg/dL SUNQUEST BUN/Creatinine Ratio 20 8 - 20 SUNQUEST Sodium, Plasma 133(L) 136 - 145 mmol/L SUNQUEST Potassium, Plasma 4.7 3.7 - 4.8 mmol/L SUNQUEST Chloride, Plasma 96(L) 97 - 107 mmol/L SUNQUEST CO2, Plasma 23 22 - 29 mmol/L SUNQUEST Anion Gap 14 6 - 16 mmol/L SUNQUEST Calcium, Plasma 8.5(L) 8.9 - 10.2 mg/dL SUNQUEST AST, Plasma 26 9 - 36 U/L SUNQUEST Comment:Hemolyzed, result ma y be falsely increased. ALT, Plasma 13 8 - 33 U/L SUNQUEST Alkaline Phosphatase, Plasma 86 46 - 142 U/L SUNQUEST Total Bilirubin, Plasma 0.2 0.2 - 1.1 mg/dL SUNQUEST Total Protein 6.4 6.3 - 7.9 g/dL SUNQUEST Albumin, Plasma 1.8(L) 3.3 - 4.6 g/dL SUNQUEST eGFR 28 SEE NOTE SUNQUEST eGFR, if AFR/AM 34(L) >60 SEE NOTE SUNQUEST Comment: (NOTE) eGFR = estimated GFR; eGFR units = mL/min/1.73 sq meters Chronic Kidney Disease is considered if eGFR <60 mL/min/1.73 sq meters Kidney failure is considered if eGFR is <15 mL/min/1.73 sq meters. eGFR assumes steady state plasma creatinine concentration; not applicable if renal function is rapidly changing or patient is on dialysis. 10/15/2019 6:09 AM EST 10/15/2019 6:29 AM EST us Alvarobernardino Gu DO LAB BLOOD ORDERABLES Final Resu lt SUNQUEST * (ABNORMAL) CBC W/O Differential (10/15/2019 6:09 AM EST) WBC Count 19.38(H) 3.7 - 10.3 k/uL SUNQUEST RBC Count 2.45(L) 3.9 - 5.2 M/uL SUNQUEST HGB 7.2(L) 11.2 - 15.7 g/dL SUNQUEST HCT 22.4(L) 34 - 45 % SUNQUEST Platelet Count 355 155 - 369 k/uL SUNQUEST MCV 91 79 - 98 fL SUNQUEST MCH 29.4 26 - 32 pg SUNQUEST MCHC 32.1 30.7 - 35.5 g/dL SUNQUEST RDW 15.7(H) 12.4 - 14.9 % SUNQUEST MPV 10.1 8.8 - 12.5 fL SUNQUEST NRBC COUNT 0.0 0 % SUNQUEST 10/15/2019 6:09 AM EST 10/15/2019 6:28 AM EST [facility] LAB BLOOD ORDERABLES Final Resu lt Performing Organization Address [facility] Phone Number SUNQUEST * (ABNORMAL) Glucose Point of Care. (10/14/2019 5:41 PM EST) POCT Glucose 192(H) 74 - 99 mg/dL SUNQUEST Comment: Accuracy [...] laboratory for testing. SPEC TYPE Capillary SUNQUEST 10/14/2019 5:41 PM EST 10/14/2019 5:45 PM EST Otis Metzger MD LAB BLOOD ORDERABLES Fin al Result Performing Organization Address [facility] Phone Number SUNQUEST * Osmolality, Urine (10/14/2019 2:27 PM EST) Osmolality, Urine 442 300 - 900 mOsm/kg SUNQUEST 10/14/2019 2:27 PM EST 10/14/2019 2:39 PM EST [facility] Gu LAB URINE ORDERABLES Final Resu lt Performing Organization Address [facility] Phone Number SUNQUEST * (ABNORMAL) Osmolality, Plasma (10/14/2019 2:27 PM EST) Osmolality, Serum 448(H) 280 - 301 mOsm/kg SUNQUEST 10/14/2019 2:27 PM EST 10/14/2019 2:38 PM EST us Alvaro Gu DO LAB BLOOD ORDERABLES Final Resu lt Performing Organization Address [facility] Phone Number SUNQUEST * Uric Acid, Urine (10/14/2019 2:27 PM EST) URIC ACID, RANDOM URINE 27 Reference range: SEE COMMENT Unit: mg/dL (NOTE) Unable to flag abnormal result(s), please refer ?? to reference range(s) below: ?? Reference range: ?? Not Established Test Performed by [facility], [employer], [address] [place] [id number] Miguel Angel Brown M.D., Ph.D., Director of Laboratories , [place] [id number] SUNQUEST 10/14/2019 2:27 PM EST 10/14/2019 2:43 PM EST us Alvaro Gu DO LAB URINE ORDERABLES Final Resu lt Performing Organization Address [facility] de Phone Number SUNQUEST * Urea Nitrogen, Random Urine (10/14/2019 2:27 PM EST) Urea Nitrogen, Random 495 mg/dL SUNQUEST 10/14/2019 2:27 PM EST 10/14/2019 2:40 PM EST us Alvaro Gu DO LAB URINE ORDERABLES Final Resu lt Performing Organization Address [facility] de Phone Number SUNQUEST * Creatinine, Random, Urine (10/14/2019 2:27 PM EST) Creatinine, Random U 142 mg/dL SUNQUEST 10/14/2019 2:27 PM EST 10/14/2019 2:40 PM EST us Alvaro Gu DO LAB URINE ORDERABLES Final Resu lt Performing Organization Address [facility] de Phone Number SUNQUEST * (ABNORMAL) Glucose Point of Care. (10/14/2019 1:07 PM EST) POCT Glucose 220(H) 74 - 99 mg/dL SUNQUEST Comment: Accuracy [...] laboratory for testing. SPEC TYPE Capillary SUNQUEST 10/14/2019 1:07 PM EST 10/14/2019 1:10 PM EST Otis Metzger MD LAB BLOOD ORDERABLES Fin al Result Performing Organization Address City/[facility] Co de Phone Number SUNQUEST * (ABNORMAL) CBC W/O Differential (10/14/2019 12:08 PM EST) WBC Count 21.54(H) 3.7 - 10.3 k/uL SUNQUEST RBC Count 2.58(L) 3.9 - 5.2 M/uL SUNQUEST HGB 7.6(L) 11.2 - 15.7 g/dL SUNQUEST HCT 23.6(L) 34 - 45 % SUNQUEST Platelet Count 334 155 - 369 k/uL SUNQUEST MCV 92 79 - 98 fL SUNQUEST MCH 29.5 26 - 32 pg SUNQUEST MCHC 32.2 30.7 - 35.5 g/dL SUNQUEST RDW 15.6(H) 12.4 - 14.9 % SUNQUEST MPV 10.3 8.8 - 12.5 fL SUNQUEST NRBC COUNT 0.0 0 % SUNQUEST 10/14/2019 12:0 8 PM EST 10/14/2019 12:49 PM EST us Khloe Irwin MD LAB BLOOD ORDERABLES Final Resul t SUNQUEST * (ABNORMAL) Glucose Point of Care. (10/14/2019 10:22 AM EST) POCT Glucose 246(H) 74 - 99 mg/dL SUNQUEST Comment: Accuracy [...] laboratory for testing. SPEC TYPE Capillary SUNQUEST 10/14/2019 10:2 2 AM EST 10/14/2019 10:25 AM EST Otis Metzger MD LAB BLOOD ORDERABLES Fin al Result Performing Organization Address City/[facility]/ZIP Co de Phone Number SUNQUEST * (ABNORMAL) CBC W/O Differential (10/14/2019 4:00 AM EST) WBC Count 21.77(H) 3.7 - 10.3 k/uL SUNQUEST RBC Count 2.59(L) 3.9 - 5.2 M/uL SUNQUEST HGB 7.7(L) 11.2 - 15.7 g/dL SUNQUEST HCT 23.6(L) 34 - 45 % SUNQUEST Platelet Count 293 155 - 369 k/uL SUNQUEST MCV 91 79 - 98 fL SUNQUEST MCH 29.7 26 - 32 pg SUNQUEST MCHC 32.6 30.7 - 35.5 g/dL SUNQUEST RDW 15.7(H) 12.4 - 14.9 % SUNQUEST MPV 10.2 8.8 - 12.5 fL SUNQUEST NRBC COUNT 0.0 0 % SUNQUEST 10/14/2019 4:00 AM EST 10/14/2019 3:39 AM EST Alvaro Gu DO LAB BLOOD ORDERABLES Final Resu lt SUNQUEST * (ABNORMAL) Glucose Point of Care. (10/14/2019 3:29 AM EST) POCT Glucose 254(H) 74 - 99 mg/dL SUNQUEST Comment: Accuracy [...] laboratory for testing. SPEC TYPE Venous SUNQUEST 10/14/2019 3:29 AM EST 10/14/2019 3:44 AM EST Otis Metzger MD LAB BLOOD ORDERABLES Fin al Result Performing Organization Address City/[facility] Co de Phone Number SUNQUEST * (ABNORMAL) Phosphorus, Plasma (10/14/2019 12:20 AM EST) Phosphorus, Plasma 4.9(H) 2.5 - 4.5 mg/dL SUNQUEST 10/14/2019 12:2 0 AM EST 10/14/2019 12:28 AM EST Evy Bishop MD LAB BLOOD ORDERABLES Final Result Performing Organization Address [facility] [facility] Co de Phone Number SUNQUEST * (ABNORMAL) Magnesium, Plasma (10/14/2019 12:20 AM EST) Magnesium, Plasma 1.4(L) 1.9 - 2.4 mg/dL SUNQUEST 10/14/2019 12:2 0 AM EST 10/14/2019 12:28 AM EST Evy Bishop MD LAB BLOOD ORDERABLES Final Result Performing Organization Address [facility] Co de Phone Number SUNQUEST * (ABNORMAL) Basic Metabolic Panel, Plasma (10/14/2019 12:20 AM EST) Glucose, Plasma 323(H) 74 - 99 mg/dL SUNQUEST BUN, Plasma 33(H) 8 - 23 mg/dL SUNQUEST Creatinine, Plasma 2.14(H) 0.60 - 1.10 mg/dL SUNQUEST BUN/Creatinine Ratio 15 8 - 20 SUNQUEST Sodium, Plasma 134(L) 136 - 145 mmol/L SUNQUEST Potassium, Plasma 5.1(H) 3.7 - 4.8 mmol/L SUNQUEST Chloride, Plasma 95(L) 97 - 107 mmol/L SUNQUEST CO2, Plasma 24 22 - 29 mmol/L SUNQUEST Anion Gap 15 6 - 16 mmol/L SUNQUEST Calcium, Plasma 8.6(L) 8.9 - 10.2 mg/dL SUNQUEST eGFR 23 SEE NOTE SUNQUEST eGFR, if AFR/AM 28(L) >60 SEE NOTE SUNQUEST Comment: (NOTE) eGFR = estimated GFR; eGFR units = mL/min/1.73 sq meters Chronic Kidney Disease is considered if eGFR <60 mL/min/1.73 sq meters Kidney failure is considered if eGFR is <15 mL/min/1.73 sq meters. eGFR assumes steady state plasma creatinine concentration; not applicable if renal function is rapidly changing or patient is on dialysis. 10/14/2019 12:2 0 AM EST 10/14/2019 12:28 AM EST Evy Bishop MD LAB BLOOD ORDERABLES Final Result Performing Organization Address City/[facility] de Phone Number SUNQUEST * (ABNORMAL) CBC W/O Differential (10/14/2019 12:20 AM EST) WBC Count 22.63(H) 3.7 - 10.3 k/uL SUNQUEST RBC Count 2.75(L) 3.9 - 5.2 M/uL SUNQUEST HGB 8.1(L) 11.2 - 15.7 g/dL SUNQUEST HCT 24.7(L) 34 - 45 % SUNQUEST Platelet Count 290 155 - 369 k/uL SUNQUEST MCV 90 79 - 98 fL SUNQUEST MCH 29.5 26 - 32 pg SUNQUEST MCHC 32.8 30.7 - 35.5 g/dL SUNQUEST RDW 15.7(H) 12.4 - 14.9 % SUNQUEST MPV 10.1 8.8 - 12.5 fL SUNQUEST NRBC COUNT 0.0 0 % SUNQUEST 10/14/2019 12:2 0 AM EST 10/14/2019 12:27 AM EST Evy Bishop MD LAB BLOOD ORDERABLES Final Result Performing Organization Address City/State/[facility] Co de Phone Number SUNQUEST * (ABNORMAL) CBC W/O Differential (10/13/2019 8:33 PM EST) [facility] WBC Count 22.25(H) 3.7 - 10.3 k/uL SUNQUEST RBC Count 2.93(L) 3.9 - 5.2 M/uL SUNQUEST HGB 8.6(L) 11.2 - 15.7 g/dL SUNQUEST HCT 26.5(L) 34 - 45 % SUNQUEST Platelet Count 304 155 - 369 k/uL SUNQUEST MCV 90 79 - 98 fL SUNQUEST MCH 29.4 26 - 32 pg SUNQUEST MCHC 32.5 30.7 - 35.5 g/dL SUNQUEST RDW 15.6(H) 12.4 - 14.9 % SUNQUEST MPV 10.2 8.8 - 12.5 fL SUNQUEST NRBC COUNT 0.0 0 % SUNQUEST 10/13/2019 8:33 PM EST 10/13/2019 8:53 PM EST Alvaro Gu DO LAB BLOOD ORDERABLES Final Resu lt Performing Organization Address [facility] de Phone Number SUNQUEST * (ABNORMAL) Glucose Point of Care. (10/13/2019 8:32 PM EST) [facility] POCT Glucose 336(H) 74 - 99 mg/dL SUNQUEST Comment: Accuracy [...] laboratory for testing. SPEC TYPE Venous SUNQUEST 10/13/2019 8:32 PM EST 10/13/2019 8:35 PM EST Otis Metzger MD LAB BLOOD ORDERABLES Fin al Result Performing Organization Address City/[facility] Co de Phone Number SUNQUEST * (ABNORMAL) Glucose Point of Care. (10/13/2019 5:32 PM EST) POCT Glucose 348(H) 74 - 99 mg/dL SUNQUEST Comment: Accuracy [...] laboratory for testing. SPEC TYPE Capillary SUNQUEST 10/13/2019 5:32 PM EST 10/13/2019 5:35 PM EST us Otis Metzger MD LAB BLOOD ORDERABLES Fin al Result SUNQUEST * XR Chest 1 View (10/13/2019 5:02 PM EST) Anatomical Region Laterality Modality Chest Radiographic Juanita ging Narrative 10/13/2019 5:05 PM EST REQUESTING PHYSICIAN: DENG POOLE REASON FOR EXAMINATION/PROCEDURE: RAD PDP:Y ??* ??Hypoxoa EXAMINATION / PROCEDURE: CHEST 1 VIEW PA/AP PORTABLE Oct ??6 2019 - 17:02; ? CLINICAL INDICATION: Hypoxia TECHNIQUE: CHEST 1 VIEW PA/AP CADEN BLE COMPARISON: March 16, 2017 FINDINGS: Left basal opacity is increased which may reflect atelectasis and pleural effusion. A component of airspace disease is possible. Aortic atheromatosis. No pneumothorax. ?? IMPRESSION: Left basal a telectasis and pleural effusion. A component of left basal aspiration or infection is possible. CRITICAL RESULT: ?? No. COMMUNICATION: Per this written report. ?? Verified by: HELADIO MISHRA M.D. on Oct ??6 2020 ??5:03P Transcribed by: [facility] on Oct ??6 2020 ??5:03P Dictated by: HELADIO MISHRA M.D. on Oct ??6 2020 ??5:02P Procedure Note Heladio Mishra - 12/31/2020 REQUESTING PHYSICIAN: DENG POOLE REASON FOR EXAMINATION/PROCEDURE: RAD PDP:Y * Hypoxoa EXAMINATION / PROCEDURE: CHEST 1 VIEW PA/AP PORTABLE Feb 2019 - 17:02; CLINICAL INDICATION: Hypoxia TECHNIQUE: CHEST 1 VIEW PA/AP CADEN BLE COMPARISON: March 16, 2017 FINDINGS: Left basal opacity is increased which may reflect atelectasis and pleural effusion. A component of airspace disease is possible. Aortic atheromatosis. No pneumothorax. IMPRESSION: Left basal a telectasis and pleural effusion. A component of left basal aspiration or infection is possible. CRITICAL RESULT: No. COMMUNICATION: Per this written report. Verified by: HELADIO MISHRA M.D. on Oct 13 2019 5:03P Transcribed by: [facility] on Oct 13 2019 5:03P Dictated by: HELADIO MISHRA M.D. on Oct 13 2019 5:02P Historical Provider IMHuan XR PROCEDURES Final R esult * (ABNORMAL) CBC W/O Differential (10/13/2019 4:32 PM EST) WBC Count 25.17(H) 3.7 - 10.3 k/uL SUNQUEST RBC Count 3.18(L) 3.9 - 5.2 M/uL SUNQUEST HGB 9.5(L) 11.2 - 15.7 g/dL SUNQUEST HCT 28.4(L) 34 - 45 % SUNQUEST Platelet Count 389(H) 155 - 369 k/uL SUNQUEST MCV 89 79 - 98 fL SUNQUEST Comment:Results inconsistent with previous lab findings. MCH 29.9 26 - 32 pg SUNQUEST MCHC 33.5 30.7 - 35.5 g/dL SUNQUEST RDW 15.6(H) 12.4 - 14.9 % SUNQUEST MPV 10.2 8.8 - 12.5 fL SUNQUEST NRBC COUNT 0.0 0 % SUNQUEST 10/13/2019 4:32 PM EST 10/13/2019 4:49 PM EST Alvaro Kaur DO LAB BLOOD ORDERABLES Final Resu lt SUNQUEST * Blood gas panel, venous (10/13/2019 4:32 PM EST) pH, Venous 7.35 7.32 - 7.43 SUNQUEST pCO2, Venous 48 37 - 52 mmHg SUNQUEST pO2, Venous 38 25 - 40 mmHg SUNQUEST SO2, Measured, Venous 69 65 - 80 % SUNQUEST Base Excess,Vens 0.1 0 - 3.0 mmol/L SUNQUEST Bicarbonate, Calculated, Venous 26 22 - 26 mmol/L SUNQUEST 10/13/2019 4:32 PM EST 10/13/2019 4:47 PM EST Alvaro Gu DO LAB BLOOD ORDERABLES Final Resu lt Performing Organization Address [facility] Co de Phone Number SUNQUEST * Multi Drug Resistance Test (10/13/2019 4:32 PM EST) 10/13/2019 4:32 PM EST 10/13/2019 4:56 PM EST Narrative SUNQUEST - 11/01/2020 5:23 PM EST SQ ACC. NUMBER ?[id number] SPECIMEN DESCRIPTION: ?[facility]ARES [employer] [place] RECTAL SPECIAL REQUESTS: ?NONE CULTURE: ? NO GROWTH DAY 1. REPORT STATUS: ? FINAL 10/15/2019 Otis Metzger MD LAB MICROBIOLOGY - GENER AL ORDERABLES Final Result Performing Organization Address [facility] de Phone Number JONNY * (ABNORMAL) CBC W/O Differential (10/13/2019 1:09 PM EST) WBC Count 22.86(H) 3.7 - 10.3 k/uL SUNQUEST RBC Count 3.17(L) 3.9 - 5.2 M/uL SUNQUEST HGB 9.2(L) 11.2 - 15.7 g/dL SUNQUEST HCT 28.8(L) 34 - 45 % SUNQUEST Platelet Count 310 155 - 369 k/uL SUNQUEST MCV 91 79 - 98 fL SUNQUEST MCH 29.0 26 - 32 pg SUNQUEST MCHC 31.9 30.7 - 35.5 g/dL SUNQUEST RDW 15.5(H) 12.4 - 14.9 % SUNQUEST MPV 10.4 8.8 - 12.5 fL SUNQUEST NRBC COUNT 0.0 0 % SUNQUEST 10/13/2019 1:09 PM EST 10/13/2019 1:24 PM EST Diandra Braden MD LAB BLOOD ORDERABLES Fadia l Result Performing Organization Address [facility] Phone Number SUNQUEST * (ABNORMAL) Glucose Point of Care. (10/13/2019 12:00 PM EST) POCT Glucose 310(H) 74 - 99 mg/dL SUNQUEST Comment: Accuracy [...] laboratory for testing. SPEC TYPE Capillary SUNQUEST 10/13/2019 12:0 0 PM EST 10/13/2019 12:06 PM EST Result [facility] Otis Metzger MD LAB BLOOD ORDERABLES Valentin al Result Performing Organization Address [facility] Phone Number SUNQUEST * (ABNORMAL) Glucose Point of Care. (10/13/2019 7:59 AM EST) POCT Glucose 243(H) 74 - 99 mg/dL SUNQUEST Comment: Accuracy [...] laboratory for testing. SPEC TYPE Capillary SUNQUEST 10/13/2019 7:59 AM EST 10/13/2019 8:05 AM EST Otis Metzger MD LAB BLOOD ORDERABLES Fin al Result SUNQUEST * IR VIR HISTORICAL (10/13/2019 7:18 AM EST) Anatomical Region Laterality Modality X-Ray Angiograph y Narrative 10/16/2019 9:36 PM EST REQUESTING PHYSICIAN: DIANDRA BRADEN REASON FOR EXAMINATION/PROCEDURE: *angiographic eval and embolization of left retroperitoneal bleed EXAMINATION / PROCEDURE: ANGIO NOTIFICATION 2019; LE FT RENAL 2ND ORDER 2019; Sedation 1st 15 mins >=5yo 2019; Sedation ea add 15 mins any age 2019; Sedation ea add 15 mins any age b 2019; Sedation ea add 15 PROCEDURE(S): *ULTRA SOUND GUIDED ACCESS TO THE RIGHT COMMON FEMORAL ARTERY *ANGIOGRAPHY OF THE RIGHT COMMON FEMORAL ARTERY *AORTOGRAM *SELECTIVE ANGIOGRAPHY OF THE SUPEROPOSTERIOR LEFT RENAL ARTERY *SELECTIVE ANGIOGRAPHY OF THE INFEROANTERIOR LEFT RENAL [place] RY *SELECTIVE ANGIOGRAPHY OF THE INFEROANTERIOR LEFT RENAL ARTERY INFEROMEDIAL SUBSEGMENTAL BRANCH TO LOWER POLE *SELECTIVE ANGIOGRAPHY OF THE INFEROANTERIOR LEFT RENAL ARTERY INFEROLATERAL SUBSEGMENTAL BRANCH TO LOWER POLE *SELECTIVE ANG IOGRAPHY OF THE INFEROANTERIOR LEFT RENAL ARTERY LATERAL INFERIOR SUBSEGMENTAL BRANCH TO LOWER POLE *SELECTIVE ANGIOGRAPHY OF THE INFEROANTERIOR LEFT RENAL ARTERY LATERAL SUPERIOR SUBSEGMENTAL BRANCH TO LOWER POLE *EMBOLIZATION OF THE INFE ROANTERIOR LEFT RENAL ARTERY INFEROLATERAL SUBSEGMENTAL BRANCH TO LOWER POLE *CLOSURE DEVICE USED AT RIGHT COMMON FEMORAL ARTERY *CONSCIOUS SEDATION CLINICAL HISTORY:IR consulted for left renal active extravasation seen on CTA. Pleasant 69 year old woman with intermittent atrial fibrillation who reports starting Xarelto August 2019 and developing left flank pain a few weeks ago. Her left flank pain became intolerable yesterday; no trauma, but she reports a recent and ongoing UTI as well as exercising on her stationary recumbent bicycle; CTA prior to consult showed the left renal active extravasation. She also has Henoch-Schonlein purpura and mild renal insufficiency. No known history of cancer. LOCAL AREA NETWORK ADMINISTRATOR: Diandra Braden M.D. SECONDARY BULL RIDER: Ramos Wyatt M.D. NURSE: See RN note; Prisca. TECH: See Technologist note; Justin. MEDICATIONS: 1% Lidocaine Subcutaneously. Moderate sedation was performed by a trained interventional radiology nurse un cheryl direct physician supervision with 2.5 mg of Versed and 175 mcg fentanyl IV from 0420 hours to 0710 hours. VTE PROPHYLAXIS: None indicated for this ambulatory procedure. ANTIBIOTIC PROPHYLAXIS: None indicated FLUORO TIME/RADIATION DOSE: 31. 8 minutes, Air Kerma of 6707 [place]Gy[place] [address] uGy-m^2 COMPLICATIONS:None immediately. PATIENT CONDITION:Stable. COMPARISON:02/04/[address] chest, 10/12/2019 outside CTA abdomen/pelvis TECHNIQUE: The patient was identi fied. After the risks and benefits of the procedure were discussed with the patient, an informed written consent was obtained. The patient was then brought back to interventional suite and placed supine on the table. Appropriate time out was per formed to confirm patient identity and planned procedure. The patient was then prepped and draped in the normal sterile fashion. Strict hand hygiene protocol was observed with the operators doing a surgical hand scrub. All personnel in the renea m were attired in surgical hat and mask. The operators were in surgical hat, mask, sterile gloves and gowns. The sites were prepped with 2% chlorhexidine for cutaneous antisepsis, followed by sterile barrier draping. Conscious sedation was initi ated. AORTOGRAM AND LEFT RENAL ARTERIOGRAPHY AND EMBOLIZATION: The right common femoral artery was accessed with a micropuncture set. A 5 Fr vascular sheath was then placed within the artery. A DSA (Digital Subtraction Angiography) was perfo rmed through the sheath in the common femoral artery. Over an 0.035 in guidewire, a 5 [place] Contra 2 was not successful at selecting the left renal arteries, and so a 5 [place] Omniflush was advanced to T12, above the renal arteries. Aortogram s howed the locations of the two left renal arteries, superoposterior and anteroinferior, and no active extravasation, blush, or pseudoaneurysm was seen. Then, the Omniflush was exchanged for the Contra 2 catheter which was advanced into the lef t superoposterior renal artery; DSA showed no active extravasation, blush, or pseudoaneurysm. After further more peripheral selection of the main branch of the left superoposterior renal artery with the Progreat microcatheter, still no active ex travasation, blush, or pseudoaneurysm was seen. Therefore, the Contra 2 was used to select the left anteroinferior renal artery; DSA showed at least 4-5 sites of active extravasation at the mid to lower renal pole, of varying severity. After p lacement of the Progreat microcatheter more peripherally in the main branch of the left anteroinferior renal artery, it was noted that the greatest extravasation was from the inferoanterior left renal artery inferolateral subsegmental branch to the lower pole, with a bare spot in this region of the lower pole, in keeping with a known renal cyst, which previously measured simple fluid density on 02/04/[address] chest but measured blood density on 10/12/2019 outside CTA abdomen/ pelvis. It was attempted to select this branch with a microcatheter, but first selected was the inferoanterior left renal artery inferomedial subsegmental branch to lower pole; DSA at this branch showed no active extravasation, blush, or pseudoa neurysm at these terminal branches, but did show active extravasation upon reflux into the targeted branch. Next, the targeted branch--the inferoanterior left renal artery inferolateral subsegmental branch to lower pole--was selected, with DSA confirming prompt active extravasation. The vessel was more peripherally selected to spare as much non-target renal parenchyma as possible, and satisfactory position was confirmed on DSA; this branch was embolized to stasis with [place]. Post embo lization DSA of the left anteroinferior renal artery through the Contra 2 demonstrated no active extravasation, blush, or pseudoaneurysm at the target vessel, with slightly enlarged area of parenchymal non-filling defect, in keeping with embol ization of this renal sub-segment. Post-embolization DSA also showed additional 3 areas of slow-flow active extravasation at branches involving about 50% of the left renal parenchyma. Branches supplying the largest of these--the inferoanterior l eft renal artery lateral inferior subsegmental branch to lower pole and the inferoanterior left renal artery lateral superior subsegmental branch to lower pole--were serially selected, but DSA confirmed that the active extravasation was slow-tam w. Given these findings, it was decided that the risk of harm to the [place] renal parenchyma in this patient with existing renal insufficiency exceeded the likely gain from embolization at this time. All catheters were removed. The vascular s cyril was removed. AngioSeal VIP was used for vascular closure with no hematoma. A sterile dressing was placed. The patient tolerated the procedure well, with no immediate complication. The patient was transferred to recovery in stable condit ion. The findings were discussed with the patient's family, son Jesus Manuel and daughter Caitlyn, in person after the case. These findings were discussed by executive vice president and chief financial officer Dr. Ramos Wyatt with trauma surgery ICU member Dr. Shaw at 0755 hours on . FINDINGS: As above. IMPRESSION: 1.Two left renal arteries; active extravasation of varying degree from mid to lower pole multiple branches (4-5) of the anteroinferior left renal artery. 2.Successful angiography and emboliz ation of the site of brisk active extravasation--possibly bleeding into her known left renal cyst--at the inferoanterior left renal artery inferolateral subsegmental branch to lower pole. 3.Other sites of active extravasation were noted to be slow-flow, with the two most suspicious sites interrogated and this finding confirmed on DSA. 4.Given these findings, it was decided that the risk of harm to the [place] renal parenchyma in this patient with existing renal insufficiency exc eeded the likely gain from embolization of multiple sites at this time. RECOMMENDATIONS: *Given the embolization of the major site of active extravasation (left renal artery, lower pole branch, inferoanterior left renal artery inferolateral subsegmental branch to lower pole) but non-embolization of other sites of slow-flow active extravasation in order to spare renal parenchyma, IR recommendation is to not restart anticoagulation/antiplatelets except under very close monitoring and with a low threshold to discontinue them. *Per her family, the patient's Xarelto is for treating atrial fibrillation which is intermittent. It may be helpful to explore other options for decreasing stroke risk, such as cardiac ablation and/ or left atrial appendage closure. *This patient has a difficult situation. Any future anticoagulation/antiplatelets must be carefully weighed against her bleeding risk--particularly as noted at this left kidney--and potential further loss of renal parenchyma and renal function if additional renal tissue must be sacrificed by embolization. *MRI renal lesion protocol without and with IV contrast, perhaps in a day or two post-procedure, will likely be helpful to assess for any un derlying occult renal mass. *If the patient remains hemodynamically stable, the large perirenal hematoma can be percutaneously drained after about 2-3 weeks to try to aid recovery of the remaining left renal parenchyma, as well as for patient comfort. CRITICAL RESULT: No. COMMUNICATION: The findings were discussed with the patient's family, son Jesus Manuel and daughter Caitlyn, in person after the case. These findings were discussed by executive vice president and chief financial officer Dr. Ramos Wyatt with trauma [facility] ICU member Dr. Shaw at 0755 hours on 10/13/2019. ATTESTATION: Not Applicable. Verified by: DIANDRA BRADEN M.D. on :35P Transcribed by: [facility]SC[facility] on :35P Dictated by: DIANDRA BRADEN M.D. on 8:24A Procedure Note Diandra Braden - 03/29/2021 REQUESTING PHYSICIAN: DIANDRA BRADEN REASON FOR EXAMINATION/PROCEDURE: *angiographic eval and embolization of left retroperitoneal bleed EXAMINATION / PROCEDURE: ANGIO NOTIFICATION 2019:18; LE FT RENAL 2ND ORDER 2019:18; Sedation 1st 15 mins >=5yo 2019:18; Sedation ea add 15 mins any age 2019:18; Sedation ea add 15 mins any age Oct 13 2019:18; Sedation ea add 15 PROCEDURE(S): *ULTRA SOUND GUIDED ACCESS TO THE RIGHT COMMON FEMORAL ARTERY *ANGIOGRAPHY OF THE RIGHT COMMON FEMORAL ARTERY *AORTOGRAM *SELECTIVE ANGIOGRAPHY OF THE SUPEROPOSTERIOR LEFT RENAL ARTERY *SELECTIVE ANGIOGRAPHY OF THE INFEROANTERIOR LEFT RENAL [place] RY *SELECTIVE ANGIOGRAPHY OF THE INFEROANTERIOR LEFT RENAL ARTERY INFEROMEDIAL SUBSEGMENTAL BRANCH TO LOWER POLE *SELECTIVE ANGIOGRAPHY OF THE INFEROANTERIOR LEFT RENAL ARTERY INFEROLATERAL SUBSEGMENTAL BRANCH TO LOWER POLE *SELECTIVE ANG IOGRAPHY OF THE INFEROANTERIOR LEFT RENAL ARTERY LATERAL INFERIOR SUBSEGMENTAL BRANCH TO LOWER POLE *SELECTIVE ANGIOGRAPHY OF THE INFEROANTERIOR LEFT RENAL ARTERY LATERAL SUPERIOR SUBSEGMENTAL BRANCH TO LOWER POLE *EMBOLIZATION OF THE INFE ROANTERIOR LEFT RENAL ARTERY INFEROLATERAL SUBSEGMENTAL BRANCH TO LOWER POLE *CLOSURE DEVICE USED AT RIGHT COMMON FEMORAL ARTERY *CONSCIOUS SEDATION CLINICAL HISTORY:IR consulted for left renal active extravasation seen on CTA. Pleasant 69 year old woman with intermittent atrial fibrillation who reports starting Xarelto August 2019 and developing left flank pain a few weeks ago. Her left flank pain became intolerable yesterday; no trauma, but she reports a recent and ongoing UTI as well as exercising on her stationary recumbent bicycle; CTA prior to consult showed the left renal active extravasation. She also has Henoch-Schonlein purpura and mild renal insufficiency. No known history of cancer. LOCAL AREA NETWORK ADMINISTRATOR: Diandra Braden M.D. SECONDARY BULL RIDER: Ramos Wyatt M.D. NURSE: See RN note; Prisca. TECH: See Technologist note; Justin. MEDICATIONS: 1% Lidocaine Subcutaneously. Moderate sedation was performed by a trained interventional radiology nurse un cheryl direct physician supervision with 2.5 mg of Versed and 175 mcg fentanyl IV from 0420 hours to 0710 hours. VTE PROPHYLAXIS: None indicated for this ambulatory procedure. ANTIBIOTIC PROPHYLAXIS: None indicated FLUORO TIME/RADIATION DOSE: 31. 8 minutes, Air Kerma of 6707 mGy, [place] [address] uGy-m^2 COMPLICATIONS:None immediately. PATIENT CONDITION:Stable. COMPARISON:02/04/[address] chest, 10/12/2019 outside CTA abdomen/pelvis TECHNIQUE: The patient was identi fied. After the risks and benefits of the procedure were discussed with the patient, an informed written consent was obtained. The patient was then brought back to interventional suite and placed supine on the table. Appropriate time out was per formed to confirm patient identity and planned procedure. The patient was then prepped and draped in the normal sterile fashion. Strict hand hygiene protocol was observed with the operators doing a surgical hand scrub. All personnel in the renea m were attired in surgical hat and mask. The operators were in surgical hat, mask, sterile gloves and gowns. The sites were prepped with 2% chlorhexidine for cutaneous antisepsis, followed by sterile barrier draping. Conscious sedation was initi ated. AORTOGRAM AND LEFT RENAL ARTERIOGRAPHY AND EMBOLIZATION: The right common femoral artery was accessed with a micropuncture set. A 5 Fr vascular sheath was then placed within the artery. A DSA (Digital Subtraction Angiography) was perfo rmed through the sheath in the common femoral artery. Over an 0.035 in guidewire, a 5 [place] Contra 2 was not successful at selecting the left renal arteries, and so a 5 [place] Omniflush was advanced to T12, above the renal arteries. Aortogram s howed the locations of the two left renal arteries, superoposterior and anteroinferior, and no active extravasation, blush, or pseudoaneurysm was seen. Then, the Omniflush was exchanged for the Contra 2 catheter which was advanced into the lef t superoposterior renal artery; DSA showed no active extravasation, blush, or pseudoaneurysm. After further more peripheral selection of the main branch of the left superoposterior renal artery with the Progreat microcatheter, still no active ex travasation, blush, or pseudoaneurysm was seen. Therefore, the Contra 2 was used to select the left anteroinferior renal artery; DSA showed at least 4-5 sites of active extravasation at the mid to lower renal pole, of varying severity. After p lacement of the Progreat microcatheter more peripherally in the main branch of the left anteroinferior renal artery, it was noted that the greatest extravasation was from the inferoanterior left renal artery inferolateral subsegmental branch to the lower pole, with a bare spot in this region of the lower pole, in keeping with a known renal cyst, which previously measured simple fluid density on 02/04/[address] chest but measured blood density on 10/12/2019 outside CTA abdomen/ pelvis. It was attempted to select this branch with a microcatheter, but first selected was the inferoanterior left renal artery inferomedial subsegmental branch to lower pole; DSA at this branch showed no active extravasation, blush, or pseudoa neurysm at these terminal branches, but did show active extravasation upon reflux into the targeted branch. Next, the targeted branch--the inferoanterior left renal artery inferolateral subsegmental branch to lower pole--was selected, with DSA confirming prompt active extravasation. The vessel was more peripherally selected to spare as much non-target renal parenchyma as possible, and satisfactory position was confirmed on DSA; this branch was embolized to stasis with [place]. Post embo lization DSA of the left anteroinferior renal artery through the Contra 2 demonstrated no active extravasation, blush, or pseudoaneurysm at the target vessel, with slightly enlarged area of parenchymal non-filling defect, in keeping with embol ization of this renal sub-segment. Post-embolization DSA also showed additional 3 areas of slow-flow active extravasation at branches involving about 50% of the left renal parenchyma. Branches supplying the largest of these--the inferoanterior l eft renal artery lateral inferior subsegmental branch to lower pole and the inferoanterior left renal artery lateral superior subsegmental branch to lower pole--were serially selected, but DSA confirmed that the active extravasation was slow-tam w. Given these findings, it was decided that the risk of harm to the [place] renal parenchyma in this patient with existing renal insufficiency exceeded the likely gain from embolization at this time. All catheters were removed. The vascular s cyril was removed. AngioSeal VIP was used for vascular closure with no hematoma. A sterile dressing was placed. The patient tolerated the procedure well, with no immediate complication. The patient was transferred to recovery in stable condit ion. The findings were discussed with the patient's family, son Jesus Manuel and daughter Caitlyn, in person after the case. These findings were discussed by executive vice president and chief financial officer Dr. Ramos Wyatt with trauma surgery ICU member Dr. Shaw at 0755 hours on . FINDINGS: As above. IMPRESSION: 1.Two left renal arteries; active extravasation of varying degree from mid to lower pole multiple branches (4-5) of the anteroinferior left renal artery. 2.Successful angiography and emboliz ation of the site of brisk active extravasation--possibly bleeding into her known left renal cyst--at the inferoanterior left renal artery inferolateral subsegmental branch to lower pole. 3.Other sites of active extravasation were noted to be slow-flow, with the two most suspicious sites interrogated and this finding confirmed on DSA. 4.Given these findings, it was decided that the risk of harm to the [place] renal parenchyma in this patient with existing renal insufficiency exc eeded the likely gain from embolization of multiple sites at thistime. RECOMMENDATIONS: *Given the embolization of the major site of active extravasation (left renal artery, lower pole branch, inferoanterior left renal artery inferolateral subsegmental branch to lower pole) but non-embolization of other sites of slow-flow active extravasation in order to spare renal parenchyma, IR recommendation is to not restart anticoagulation/antiplatelets except under very close monitoring and with a low threshold to discontinue them. *Per her family, the patient's Xarelto is for treating atrial fibrillation which is intermittent. It may be helpful to explore other options for decreasing stroke risk, such as cardiac ablation and/ or left atrial appendage closure. *This patient has a difficult situation. Any future anticoagulation/antiplatelets must be carefully weighed against her bleeding risk--particularly as noted at this left kidney--and potential further loss of renal parenchyma and renal function if additional renal tissue must be sacrificed by embolization. *MRI renal lesion protocol without and with IV contrast, perhaps in a day or two post-procedure, will likely be helpful to assess for any un derlying occult renal mass. *If the patient remains hemodynamically stable, the large perirenal hematoma can be percutaneously drained after about 2-3 weeks to try to aid recovery of the remaining left renal parenchyma, as well as for patient comfort. CRITICAL RESULT: No. COMMUNICATION: The findings were discussed with the patient's family, son Jesus Manuel and daughter Caitlyn, in person after the case. These findings were discussed by executive vice president and chief financial officer Dr. Ramos Wyatt with trauma [facility] ICU member Dr. Shaw at 0755 hours on 10/13/2019. ATTESTATION: Not Applicable. Verified by: DIANDRA BRADEN M.D. on :35P Transcribed by: [facility] on :35P Dictated by: DIANDRA BRADEN M.D. on 2 0208:24A Diandra Braden MD IMG IR PROCEDURES Final R esult * IR VIR HISTORICAL (10/13/2019 7:18 AM EST) Anatomical Region Laterality Modality X-Ray Angiograph y Narrative 10/16/2019 9:36 PM EST REQUESTING PHYSICIAN: DIANDRA BRADEN REASON FOR EXAMINATION/PROCEDURE: ?? * ??angiographic eval and embolization of left retroperitoneal bleed EXAMINATION / PROCEDURE: ANGIO NOTIFICATION Feb ??6 201918; LE FT RENAL 2ND ORDER Feb ??6 2019:18; Sedation 1st 15 mins >=5yo Feb ??6 2019:18; Sedation ea add 15 mins any age Feb ??6 2019:18; Sedation ea add 15 mins any age Feb ?? 6 2020 07:18; Sedation ea add 15 ? PROCEDURE(S): ?? * ??ULTRA SOUND GUIDED ACCESS TO THE RIGHT COMMON FEMORAL ARTERY * ??ANGIOGRAPHY OF THE RIGHT COMMON FEMORAL ARTERY * ??AORTOGRAM * ??SELECTIVE ANGIOGRAPHY OF THE SUPEROPOSTERIOR LEFT RENAL ARTERY * ??SELECTIVE ANGIOGRAPHY OF THE INFEROANTERIOR LEFT RENAL [place] RY * ??SELECTIVE ANGIOGRAPHY OF THE INFEROANTERIOR LEFT RENAL ARTERY INFEROMEDIAL SUBSEGMENTAL BRANCH TO LOWER POLE * ??SELECTIVE ANGIOGRAPHY OF THE INFEROANTERIOR LEFT RENAL ARTERY INFEROLATERAL SUBSEGMENTAL BRANCH TO LOWER POLE * ??SELECTIVE ANG IOGRAPHY OF THE INFEROANTERIOR LEFT RENAL ARTERY LATERAL INFERIOR SUBSEGMENTAL BRANCH TO LOWER POLE * ??SELECTIVE ANGIOGRAPHY OF THE INFEROANTERIOR LEFT RENAL ARTERY LATERAL SUPERIOR SUBSEGMENTAL BRANCH TO LOWER POLE * ??EMBOLIZATION OF THE INFE ROANTERIOR LEFT RENAL ARTERY INFEROLATERAL SUBSEGMENTAL BRANCH TO LOWER POLE * ??CLOSURE DEVICE USED AT RIGHT COMMON FEMORAL ARTERY * ??CONSCIOUS SEDATION CLINICAL HISTORY: ??IR consulted for left renal active extravasation seen on CTA. Pleasant ??69 year old woman with intermittent atrial fibrillation who reports starting Xarelto August 2019 and developing left flank pain a few weeks ago. Her left flank pain became intolerable yesterday; no trauma, but she reports a recent and ongoing ??UTI as well as exercising on her stationary recumbent bicycle; CTA prior to consult showed the left renal active extravasation. She also has Henoch-Schonlein purpura and mild renal insufficiency. No known history of cancer. LOCAL AREA NETWORK ADMINISTRATOR: ??Diandra Braden M.D. SECONDARY BULL RIDER: Ramos Wyatt M.D. NURSE: See RN note; Prisca. TECH: See Technologist note; Justin. MEDICATIONS: 1% Lidocaine Subcutaneously. Moderate sedation was performed by a trained interventional radiology nurse un cheryl direct physician supervision with 2.5 mg of Versed and 175 mcg fentanyl IV from 0420 hours to 0710 hours. VTE PROPHYLAXIS: None indicated for this ambulatory procedure. ANTIBIOTIC PROPHYLAXIS: None indicated FLUORO TIME/RADIATION DOSE: 31. 8 minutes, Air Kerma of 6707 mGy[place] [address] uGy-m^2 COMPLICATIONS: ??None immediately. PATIENT CONDITION: ??Stable. COMPARISON: ??02/04/[address] chest, 10/12/2019 outside CTA abdomen/pelvis TECHNIQUE: ?? The patient was identi fied. After the risks and benefits of the procedure were discussed with the patient, an informed written consent was obtained. The patient was then brought back to interventional suite and placed supine on the table. Appropriate time out was per formed to confirm patient identity and planned procedure. The patient was then prepped and draped in the normal sterile fashion. Strict hand hygiene protocol was observed with the operators doing a surgical hand scrub. All personnel in the renea m were attired in surgical hat and mask. The operators were in surgical hat, mask, sterile gloves and gowns. The sites were prepped with 2% chlorhexidine for cutaneous antisepsis, followed by sterile barrier draping. Conscious sedation was initi ated. ?? AORTOGRAM AND LEFT RENAL ARTERIOGRAPHY AND EMBOLIZATION: The right common femoral artery was accessed with a micropuncture set. A 5 Fr vascular sheath was then placed within the artery. A DSA (Digital Subtraction Angiography) was perfo rmed through the sheath in the common femoral artery. Over an 0.035 in guidewire, a 5 [place] Contra 2 was not successful at selecting the left renal arteries, and so a 5 [place] Omniflush was advanced to T12, above the renal arteries. Aortogram s howed the locations of the two left renal arteries, superoposterior and anteroinferior, and no active extravasation, blush, or pseudoaneurysm was seen. Then, the Omniflush was exchanged for the Contra 2 catheter which was advanced into the lef t superoposterior renal artery; DSA showed no active extravasation, blush, or pseudoaneurysm. After further more peripheral selection of the main branch of the left superoposterior renal artery with the Progreat microcatheter, still no active ex travasation, blush, or pseudoaneurysm was seen. Therefore, the Contra 2 was used to select the left anteroinferior renal artery; DSA showed at least 4-5 sites of active extravasation at the mid to lower renal pole, of varying severity. After p lacement of the Progreat microcatheter more peripherally in the main branch of the left anteroinferior renal artery, it was noted that the greatest extravasation was from the inferoanterior left renal artery inferolateral subsegmental branch to the lower pole, with a bare spot in this region of the lower pole, in keeping with a known renal cyst, which previously measured simple fluid density on 02/04/[address] chest but measured blood density on 10/12/2019 outside CTA abdomen/ pelvis. It was attempted to select this branch with a microcatheter, but first selected was the inferoanterior left renal artery inferomedial subsegmental branch to lower pole; DSA at this branch showed no active extravasation, blush, or pseudoa neurysm at these terminal branches, but did show active extravasation upon reflux into the targeted branch. Next, the targeted branch--the inferoanterior left renal artery inferolateral subsegmental branch to lower pole--was selected, with DSA ??confirming prompt active extravasation. The vessel was more peripherally selected to spare as much non-target renal parenchyma as possible, and satisfactory position was confirmed on DSA; this branch was embolized to stasis with [place]. Post embo lization DSA of the left anteroinferior renal artery through the Contra 2 demonstrated no active extravasation, blush, or pseudoaneurysm at the target vessel, with slightly enlarged area of parenchymal non-filling defect, in keeping with embol ization of this renal sub-segment. Post-embolization DSA also showed additional 3 areas of slow-flow active extravasation at branches involving about 50% of the left renal parenchyma. Branches supplying the largest of these--the inferoanterior l eft renal artery lateral inferior subsegmental branch to lower pole and the inferoanterior left renal artery lateral superior subsegmental branch to lower pole--were serially selected, but DSA confirmed that the active extravasation was slow-tam w. Given these findings, it was decided that the risk of harm to the [place] renal parenchyma in this patient with existing renal insufficiency exceeded the likely gain from embolization at this time. All catheters were removed. The vascular s cyril was removed. AngioSeal VIP was used for vascular closure with no hematoma. A sterile dressing was placed. The patient tolerated the procedure well, with no immediate complication. The patient was transferred to recovery in stable condit ion. The findings were discussed with the patient's family, son Jesus Manuel and daughter Caitlyn, in person after the case. These findings were discussed by executive vice president and chief financial officer Dr. Ramos Wyatt with trauma surgery ICU member Dr. Shaw at 0755 hours on . FINDINGS: As above. ?? IMPRESSION: 1. ??Two left renal arteries; active extravasation of varying degree from mid to lower pole multiple branches (4-5) of the anteroinferior left renal artery. 2. ??Successful angiography and emboliz ation of the site of brisk active extravasation--possibly bleeding into her known left renal cyst--at the inferoanterior left renal artery inferolateral subsegmental branch to lower pole. 3. ??Other sites of active extravasation were noted to be ??slow-flow, with the two most suspicious sites interrogated and this finding confirmed on DSA. 4. ??Given these findings, it was decided that the risk of harm to the [place] renal parenchyma in this patient with existing renal insufficiency exc eeded the likely gain from embolization of multiple sites at this time. RECOMMENDATIONS: * ??Given the embolization of the major site of active extravasation (left renal artery, lower pole branch, inferoanterior left renal artery inferolateral subsegmental branch to lower pole) but non-embolization of other sites of slow-flow active extravasation in order to spare renal parenchyma, IR recommendation is to not restart anticoagulation/antiplatelets except under very close monitoring and ??with a low threshold to discontinue them. * ??Per her family, the patient's Xarelto is for treating atrial fibrillation which is intermittent. It may be helpful to explore other options for decreasing stroke risk, such as cardiac ablation and/ or left atrial appendage closure. * ??This patient has a difficult situation. Any future anticoagulation/antiplatelets must be carefully weighed against her bleeding risk--particularly as noted at this left kidney--and potential further loss of renal parenchyma and renal function if additional renal tissue must be sacrificed by embolization. * ??MRI renal lesion protocol without and with IV contrast, perhaps in a day or two post-procedure, will likely be helpful to assess for any un derlying occult renal mass. * ??If the patient remains hemodynamically stable, the large perirenal hematoma can be percutaneously drained after about 2-3 weeks to try to aid recovery of the remaining left renal parenchyma, as well as for patient ??comfort. CRITICAL RESULT: No. COMMUNICATION: The findings were discussed with the patient's family, son Jesus Manuel and daughter Caitlyn, in person after the case. These findings were discussed by executive vice president and chief financial officer Dr. Ramos Wyatt with trauma [facility] ICU member Dr. Shaw at 0755 hours on 10/13/2019. ATTESTATION: Not Applicable. ?? Verified by: DIANDRA BRADEN M.D. on Oct ??9 2020 ??9:35P Transcribed by: [facility] on Oct ??9 2020 ??9:35P Dictated by: DIANDRA BRADEN M.D. on Oct ??6 2 020 ??8:24A Procedure Note Diandra Bradenaret - 12/31/2020 REQUESTING PHYSICIAN: DIANDRA BRADEN REASON FOR EXAMINATION/PROCEDURE: * angiographic eval and embolization of left retroperitoneal bleed EXAMINATION / PROCEDURE: ANGIO NOTIFICATION Oct 13 2019:18; LE FT RENAL 2ND ORDER Oct 13 2019:18; Sedation 1st 15 mins >=5yo Oct 13 201918; Sedation ea add 15 mins any age Oct 13 2019:18; Sedation ea add 15 mins any age Oct 13 2019:18; Sedation ea add 15 PROCEDURE(S): * ULTRA SOUND GUIDED ACCESS TO THE RIGHT COMMON FEMORAL ARTERY * ANGIOGRAPHY OF THE RIGHT COMMON FEMORAL ARTERY * AORTOGRAM * SELECTIVE ANGIOGRAPHY OF THE SUPEROPOSTERIOR LEFT RENAL ARTERY * SELECTIVE ANGIOGRAPHY OF THE INFEROANTERIOR LEFT RENAL [place] RY * SELECTIVE ANGIOGRAPHY OF THE INFEROANTERIOR LEFT RENAL ARTERY INFEROMEDIAL SUBSEGMENTAL BRANCH TO LOWER POLE * SELECTIVE ANGIOGRAPHY OF THE INFEROANTERIOR LEFT RENAL ARTERY INFEROLATERAL SUBSEGMENTAL BRANCH TO LOWER POLE * SELECTIVE ANG IOGRAPHY OF THE INFEROANTERIOR LEFT RENAL ARTERY LATERAL INFERIOR SUBSEGMENTAL BRANCH TO LOWER POLE * SELECTIVE ANGIOGRAPHY OF THE INFEROANTERIOR LEFT RENAL ARTERY LATERAL SUPERIOR SUBSEGMENTAL BRANCH TO LOWER POLE * EMBOLIZATION OF THE INFE ROANTERIOR LEFT RENAL ARTERY INFEROLATERAL SUBSEGMENTAL BRANCH TO LOWER POLE * CLOSURE DEVICE USED AT RIGHT COMMON FEMORAL ARTERY * CONSCIOUS SEDATION CLINICAL HISTORY: IR consulted for left renal active extravasation seen on CTA. Pleasant 69 year old woman with intermittent atrial fibrillation who reports starting Xarelto August 2019 and developing left flank pain a few weeks ago. Her left flank pain became intolerable yesterday; no trauma, but she reports a recent and ongoing UTI as well as exercising on her stationary recumbent bicycle; CTA prior to consult showed the left renal active extravasation. She also has Henoch-Schonlein purpura and mild renal insufficiency. No known history of cancer. LOCAL AREA NETWORK ADMINISTRATOR: Diandra Braden M.D. SECONDARY BULL RIDER: Ramos Wyatt M.D. NURSE: [place] RN note; Prisca. TECH: See Technologist note; Justin. MEDICATIONS: 1% Lidocaine Subcutaneously. Moderate sedation was performed by a trained interventional radiology nurse un cheryl direct physician supervision with 2.5 mg of Versed and 175 mcg fentanyl IV from 0420 hours to 0710 hours. VTE PROPHYLAXIS: None indicated for this ambulatory procedure. ANTIBIOTIC PROPHYLAXIS: None indicated FLUORO TIME/RADIATION DOSE: 31. 8 minutes, Air Kerma of 6707 mGy[place] [address] uGy-m^2 COMPLICATIONS: None immediately. PATIENT CONDITION: Stable. COMPARISON: 02/04/[address] chest, 10/12/2019 outside CTA abdomen/pelvis TECHNIQUE: The patient was identi fied. After the risks and benefits of the procedure were discussed with the patient, an informed written consent was obtained. The patient was then brought back to interventional suite and placed supine on the table. Appropriate time out was per formed to confirm patient identity and planned procedure. The patient was then prepped and draped in the normal sterile fashion. Strict hand hygiene protocol was observed with the operators doing a surgical hand scrub. All personnel in the renea m were attired in surgical hat and mask. The operators were in surgical hat, mask, sterile gloves and gowns. The sites were prepped with 2% chlorhexidine for cutaneous antisepsis, followed by sterile barrier draping. Conscious sedation was initi ated. AORTOGRAM AND LEFT RENAL ARTERIOGRAPHY AND EMBOLIZATION: The right common femoral artery was accessed with a micropuncture set. A 5 Fr vascular sheath was then placed within the artery. A DSA (Digital Subtraction Angiography) was perfo rmed through the sheath in the common femoral artery. Over an 0.035 in guidewire, a 5 [place] Contra 2 was not successful at selecting the left renal arteries, and so a 5 [place] Omniflush was advanced to T12, above the renal arteries. Aortogram s howed the locations of the two left renal arteries, superoposterior and anteroinferior, and no active extravasation, blush, or pseudoaneurysm was seen. Then, the Omniflush was exchanged for the Contra 2 catheter which was advanced into the lef t superoposterior renal artery; DSA showed no active extravasation, blush, or pseudoaneurysm. After further more peripheral selection of the main branch of the left superoposterior renal artery with the Progreat microcatheter, still no active ex travasation, blush, or pseudoaneurysm was seen. Therefore, the Contra 2 was used to select the left anteroinferior renal artery; DSA showed at least 4-5 sites of active extravasation at the mid to lower renal pole, of varying severity. After p lacement of the Progreat microcatheter more peripherally in the main branch of the left anteroinferior renal artery, it was noted that the greatest extravasation was from the inferoanterior left renal artery inferolateral subsegmental branch to the lower pole, with a bare spot in this region of the lower pole, in keeping with a known renal cyst, which previously measured simple fluid density on 02/04/[address] chest but measured blood density on 10/12/2019 outside CTA abdomen/ pelvis. It was attempted to select this branch with a microcatheter, but first selected was the inferoanterior left renal artery inferomedial subsegmental branch to lower pole; DSA at this branch showed no active extravasation, blush, or pseudoa neurysm at these terminal branches, but did show active extravasation upon reflux into the targeted branch. Next, the targeted branch--the inferoanterior left renal artery inferolateral subsegmental branch to lower pole--was selected, with DSA confirming prompt active extravasation. The vessel was more peripherally selected to spare as much non-target renal parenchyma as possible, and satisfactory position was confirmed on DSA; this branch was embolized to stasis with [place]. Post embo lization DSA of the left anteroinferior renal artery through the Contra 2 demonstrated no active extravasation, blush, or pseudoaneurysm at the target vessel, with slightly enlarged area of parenchymal non-filling defect, in keeping with embol ization of this renal sub-segment. Post-embolization DSA also showed additional 3 areas of slow-flow active extravasation at branches involving about 50% of the left renal parenchyma. Branches supplying the largest of these--the inferoanterior l eft renal artery lateral inferior subsegmental branch to lower pole and the inferoanterior left renal artery lateral superior subsegmental branch to lower pole--were serially selected, but DSA confirmed that the active extravasation was slow-tam w. Given these findings, it was decided that the risk of harm to the [place] renal parenchyma in this patient with existing renal insufficiency exceeded the likely gain from embolization at this time. All catheters were removed. The vascular s cyril was removed. AngioSeal VIP was used for vascular closure with no hematoma. A sterile dressing was placed. The patient tolerated the procedure well, with no immediate complication. The patient was transferred to recovery in stable condit ion. The findings were discussed with the patient's family, son Jesus Manuel and daughter Caitlyn, in person after the case. These findings were discussed by executive vice president and chief financial officer Dr. Ramos Wyatt with trauma surgery ICU member Dr. Shaw at 0755 hours on . FINDINGS: As above. IMPRESSION: 1. Two left renal arteries; active extravasation of varying degree from mid to lower pole multiple branches (4-5) of the anteroinferior left renal artery. 2. Successful angiography and emboliz ation of the site of brisk active extravasation--possibly bleeding into her known left renal cyst--at the inferoanterior left renal artery inferolateral subsegmental branch to lower pole. 3. Other sites of active extravasation were noted to be slow-flow, with the two most suspicious sites interrogated and this finding confirmed on DSA. 4. Given these findings, it was decided that the risk of harm to the [place] renal parenchyma in this patient with existing renal insufficiency exc eeded the likely gain from embolization of multiple sites at thistime. RECOMMENDATIONS: * Given the embolization of the major site of active extravasation (left renal artery, lower pole branch, inferoanterior left renal artery inferolateral subsegmental branch to lower pole) but non-embolization of other sites of slow-flow active extravasation in order to spare renal parenchyma, IR recommendation is to not restart anticoagulation/antiplatelets except under very close monitoring and with a low threshold to discontinue them. * Per her family, the patient's Xarelto is for treating atrial fibrillation which is intermittent. It may be helpful to explore other options for decreasing stroke risk, such as cardiac ablation and/ or left atrial appendage closure. * This patient has a difficult situation. Any future anticoagulation/antiplatelets must be carefully weighed against her bleeding risk--particularly as noted at this left kidney--and potential further loss of renal parenchyma and renal function if additional renal tissue must be sacrificed by embolization. * MRI renal lesion protocol without and with IV contrast, perhaps in a day or two post-procedure, will likely be helpful to assess for any un derlying occult renal mass. * If the patient remains hemodynamically stable, the large perirenal hematoma can be percutaneously drained after about 2-3 weeks to try to aid recovery of the remaining left renal parenchyma, as well as for patient comfort. CRITICAL RESULT: No. COMMUNICATION: The findings were discussed with the patient's family, son Jesus Manuel and daughter Caitlyn, in person after the case. These findings were discussed by executive vice president and chief financial officer Dr. Ramos Wyatt with trauma [facility] ICU member Dr. Shaw at 0755 hours on 10/13/2019. ATTESTATION: Not Applicable. Verified by: DIANDRA BRADEN M.D. on Oct 16 2019 9:35P Transcribed by: PSCB on Oct 16 2019 9:35P Dictated by: DIANDRA BRADEN M.D. on Oct 13 2 020 8:24A us Diandra Braden MD IMG IR PROCEDURES Final R esult * IR VIR HISTORICAL (10/13/2019 7:18 AM EST) Anatomical Region Laterality Modality X-Ray Angiograph y Narrative 10/16/2019 9:36 PM EST REQUESTING PHYSICIAN: DIANDRA BRADEN REASON FOR EXAMINATION/PROCEDURE: ?? * ??angiographic eval and embolization of left retroperitoneal bleed EXAMINATION / PROCEDURE: ANGIO NOTIFICATION Feb ??6 2019:18; LE FT RENAL 2ND ORDER Feb ??6 2019:18; Sedation 1st 15 mins >=5yo Feb ??6 2019:18; Sedation ea add 15 mins any age Feb ??6 2019:18; Sedation ea add 15 mins any age Feb ?? 6 2019:18; Sedation ea add 15 ? PROCEDURE(S): ?? * ??ULTRA SOUND GUIDED ACCESS TO THE RIGHT COMMON FEMORAL ARTERY * ??ANGIOGRAPHY OF THE RIGHT COMMON FEMORAL ARTERY * ??AORTOGRAM * ??SELECTIVE ANGIOGRAPHY OF THE SUPEROPOSTERIOR LEFT RENAL ARTERY * ??SELECTIVE ANGIOGRAPHY OF THE INFEROANTERIOR LEFT RENAL ALVINO RY * ??SELECTIVE ANGIOGRAPHY OF THE INFEROANTERIOR LEFT RENAL ARTERY INFEROMEDIAL SUBSEGMENTAL BRANCH TO LOWER POLE * ??SELECTIVE ANGIOGRAPHY OF THE INFEROANTERIOR LEFT RENAL ARTERY INFEROLATERAL SUBSEGMENTAL BRANCH TO LOWER POLE * ??SELECTIVE ANG IOGRAPHY OF THE INFEROANTERIOR LEFT RENAL ARTERY LATERAL INFERIOR SUBSEGMENTAL BRANCH TO LOWER POLE * ??SELECTIVE ANGIOGRAPHY OF THE INFEROANTERIOR LEFT RENAL ARTERY LATERAL SUPERIOR SUBSEGMENTAL BRANCH TO LOWER POLE * ??EMBOLIZATION OF THE INFE ROANTERIOR LEFT RENAL ARTERY INFEROLATERAL SUBSEGMENTAL BRANCH TO LOWER POLE * ??CLOSURE DEVICE USED AT RIGHT COMMON FEMORAL ARTERY * ??CONSCIOUS SEDATION CLINICAL HISTORY: ??IR consulted for left renal active extravasation seen on CTA. Pleasant ??69 year old woman with intermittent atrial fibrillation who reports starting Xarelto August 2019 and developing left flank pain a few weeks ago. Her left flank pain became intolerable yesterday; no trauma, but she reports a recent and ongoing ??UTI as well as exercising on her stationary recumbent bicycle; CTA prior to consult showed the left renal active extravasation. She also has Henoch-Schonlein purpura and mild renal insufficiency. No known history of cancer. LOCAL AREA NETWORK ADMINISTRATOR: ??Diandra Braden M.D. SECONDARY BULL RIDER: Ramos Wyatt M.D. NURSE: See RN note; Prisca. TECH: See Technologist note; Justin. MEDICATIONS: 1% Lidocaine Subcutaneously. Moderate sedation was performed by a trained interventional radiology nurse un cheryl direct physician supervision with 2.5 mg of Versed and 175 mcg fentanyl IV from 0420 hours to 0710 hours. VTE PROPHYLAXIS: None indicated for this ambulatory procedure. ANTIBIOTIC PROPHYLAXIS: None indicated FLUORO TIME/RADIATION DOSE: 31. 8 minutes, Air Kerma of 6707 [place] [address] uGy-m^2 COMPLICATIONS: ??None immediately. PATIENT CONDITION: ??Stable. COMPARISON: ??02/04/[address] chest, 10/12/2019 outside CTA abdomen/pelvis TECHNIQUE: ?? The patient was identi fied. After the risks and benefits of the procedure were discussed with the patient, an informed written consent was obtained. The patient was then brought back to interventional suite and placed supine on the table. Appropriate time out was per formed to confirm patient identity and planned procedure. The patient was then prepped and draped in the normal sterile fashion. Strict hand hygiene protocol was observed with the operators doing a surgical hand scrub. All personnel in the renea m were attired in surgical hat and mask. The operators were in surgical hat, mask, sterile gloves and gowns. The sites were prepped with 2% chlorhexidine for cutaneous antisepsis, followed by sterile barrier draping. Conscious sedation was initi ated. ?? AORTOGRAM AND LEFT RENAL ARTERIOGRAPHY AND EMBOLIZATION: The right common femoral artery was accessed with a micropuncture set. A 5 Fr vascular sheath was then placed within the artery. A DSA (Digital Subtraction Angiography) was perfo rmed through the sheath in the common femoral artery. Over an 0.035 in guidewire, a 5 [place] Contra 2 was not successful at selecting the left renal arteries, and so a 5 [place] Omniflush was advanced to T12, above the renal arteries. Aortogram s howed the locations of the two left renal arteries, superoposterior and anteroinferior, and no active extravasation, blush, or pseudoaneurysm was seen. Then, the Omniflush was exchanged for the Contra 2 catheter which was advanced into the lef t superoposterior renal artery; DSA showed no active extravasation, blush, or pseudoaneurysm. After further more peripheral selection of the main branch of the left superoposterior renal artery with the Progreat microcatheter, still no active ex travasation, blush, or pseudoaneurysm was seen. Therefore, the Contra 2 was used to select the left anteroinferior renal artery; DSA showed at least 4-5 sites of active extravasation at the mid to lower renal pole, of varying severity. After p lacement of the Progreat microcatheter more peripherally in the main branch of the left anteroinferior renal artery, it was noted that the greatest extravasation was from the inferoanterior left renal artery inferolateral subsegmental branch to the lower pole, with a bare spot in this region of the lower pole, in keeping with a known renal cyst, which previously measured simple fluid density on 02/04/[address] chest but measured blood density on 10/12/2019 outside CTA abdomen/ pelvis. It was attempted to select this branch with a microcatheter, but first selected was the inferoanterior left renal artery inferomedial subsegmental branch to lower pole; DSA at this branch showed no active extravasation, blush, or pseudoa neurysm at these terminal branches, but did show active extravasation upon reflux into the targeted branch. Next, the targeted branch--the inferoanterior left renal artery inferolateral subsegmental branch to lower pole--was selected, with DSA ??confirming prompt active extravasation. The vessel was more peripherally selected to spare as much non-target renal parenchyma as possible, and satisfactory position was confirmed on DSA; this branch was embolized to stasis with Mc. Post embo lization DSA of the left anteroinferior renal artery through the Contra 2 demonstrated no active extravasation, blush, or pseudoaneurysm at the target vessel, with slightly enlarged area of parenchymal non-filling defect, in keeping with embol ization of this renal sub-segment. Post-embolization DSA also showed additional 3 areas of slow-flow active extravasation at branches involving about 50% of the left renal parenchyma. Branches supplying the largest of these--the inferoanterior l eft renal artery lateral inferior subsegmental branch to lower pole and the inferoanterior left renal artery lateral superior subsegmental branch to lower pole--were serially selected, but DSA confirmed that the active extravasation was slow-tam w. Given these findings, it was decided that the risk of harm to the [place] renal parenchyma in this patient with existing renal insufficiency exceeded the likely gain from embolization at this time. All catheters were removed. The vascular s cyril was removed. AngioSeal VIP was used for vascular closure with no hematoma. A sterile dressing was placed. The patient tolerated the procedure well, with no immediate complication. The patient was transferred to recovery in stable condit ion. The findings were discussed with the patient's family, son Jesus Manuel and daughter Caitlyn, in person after the case. These findings were discussed by executive vice president and chief financial officer Dr. Ramos Wyatt with trauma surgery ICU member Dr. Shaw at 0755 hours on . FINDINGS: As above. ?? IMPRESSION: 1. ??Two left renal arteries; active extravasation of varying degree from mid to lower pole multiple branches (4-5) of the anteroinferior left renal artery. 2. ??Successful angiography and emboliz ation of the site of brisk active extravasation--possibly bleeding into her known left renal cyst--at the inferoanterior left renal artery inferolateral subsegmental branch to lower pole. 3. ??Other sites of active extravasation were noted to be ??slow-flow, with the two most suspicious sites interrogated and this finding confirmed on DSA. 4. ??Given these findings, it was decided that the risk of harm to the [place] renal parenchyma in this patient with existing renal insufficiency exc eeded the likely gain from embolization of multiple sites at this time. RECOMMENDATIONS: * ??Given the embolization of the major site of active extravasation (left renal artery, lower pole branch, inferoanterior left renal artery inferolateral subsegmental branch to lower pole) but non-embolization of other sites of slow-flow active extravasation in order to spare renal parenchyma, IR recommendation is to not restart anticoagulation/antiplatelets except under very close monitoring and ??with a low threshold to discontinue them. * ??Per her family, the patient's Xarelto is for treating atrial fibrillation which is intermittent. It may be helpful to explore other options for decreasing stroke risk, such as cardiac ablation and/ or left atrial appendage closure. * ??This patient has a difficult situation. Any future anticoagulation/antiplatelets must be carefully weighed against her bleeding risk--particularly as noted at this left kidney--and potential further loss of renal parenchyma and renal function if additional renal tissue must be sacrificed by embolization. * ??MRI renal lesion protocol without and with IV contrast, perhaps in a day or two post-procedure, will likely be helpful to assess for any un derlying occult renal mass. * ??If the patient remains hemodynamically stable, the large perirenal hematoma can be percutaneously drained after about 2-3 weeks to try to aid recovery of the remaining left renal parenchyma, as well as for patient ??comfort. CRITICAL RESULT: No. COMMUNICATION: The findings were discussed with the patient's family, son Jesus Manuel and daughter Caitlyn, in person after the case. These findings were discussed by executive vice president and chief financial officer Dr. Ramos Wyatt with trauma [facility] ICU member Dr. Shaw at 0755 hours on 10/13/2019. ATTESTATION: Not Applicable. ?? Verified by: DIANDRA BRADEN M.D. on Oct ??9 2020 ??9:35P Transcribed by: PSCB on Oct ??9 2020 ??9:35P Dictated by: DIANDRA BRADEN M.D. on Oct ??6 2 020 ??8:24A Procedure Note Diandra Braden Sydnie - 12/31/2020 REQUESTING PHYSICIAN: DIANDRA BRADEN REASON FOR EXAMINATION/PROCEDURE: * angiographic eval and embolization of left retroperitoneal bleed EXAMINATION / PROCEDURE: ANGIO NOTIFICATION Oct 13 2019:18; LE FT RENAL 2ND ORDER Oct 13 201918; Sedation 1st 15 mins >=5yo Oct 13 201918; Sedation ea add 15 mins any age Oct 13 201918; Sedation ea add 15 mins any age Oct 13 201918; Sedation ea add 15 PROCEDURE(S): * ULTRA SOUND GUIDED ACCESS TO THE RIGHT COMMON FEMORAL ARTERY * ANGIOGRAPHY OF THE RIGHT COMMON FEMORAL ARTERY * AORTOGRAM * SELECTIVE ANGIOGRAPHY OF THE SUPEROPOSTERIOR LEFT RENAL ARTERY * SELECTIVE ANGIOGRAPHY OF THE INFEROANTERIOR LEFT RENAL ALVINO RY * SELECTIVE ANGIOGRAPHY OF THE INFEROANTERIOR LEFT RENAL ARTERY INFEROMEDIAL SUBSEGMENTAL BRANCH TO LOWER POLE * SELECTIVE ANGIOGRAPHY OF THE INFEROANTERIOR LEFT RENAL ARTERY INFEROLATERAL SUBSEGMENTAL BRANCH TO LOWER POLE * SELECTIVE ANG IOGRAPHY OF THE INFEROANTERIOR LEFT RENAL ARTERY LATERAL INFERIOR SUBSEGMENTAL BRANCH TO LOWER POLE * SELECTIVE ANGIOGRAPHY OF THE INFEROANTERIOR LEFT RENAL ARTERY LATERAL SUPERIOR SUBSEGMENTAL BRANCH TO LOWER POLE * EMBOLIZATION OF THE INFE ROANTERIOR LEFT RENAL ARTERY INFEROLATERAL SUBSEGMENTAL BRANCH TO LOWER POLE * CLOSURE DEVICE USED AT RIGHT COMMON FEMORAL ARTERY * CONSCIOUS SEDATION CLINICAL HISTORY: IR consulted for left renal active extravasation seen on CTA. Pleasant 69 year old woman with intermittent atrial fibrillation who reports starting Xarelto August 2019 and developing left flank pain a few weeks ago. Her left flank pain became intolerable yesterday; no trauma, but she reports a recent and ongoing UTI as well as exercising on her stationary recumbent bicycle; CTA prior to consult showed the left renal active extravasation. She also has Henoch-Schonlein purpura and mild renal insufficiency. No known history of cancer. LOCAL AREA NETWORK ADMINISTRATOR: Diandra Braden M.D. SECONDARY BULL RIDER: Ramos Wyatt M.D. NURSE: See RN note; Prisca. TECH: See Technologist note; Justin. MEDICATIONS: 1% Lidocaine Subcutaneously. Moderate sedation was performed by a trained interventional radiology nurse un cheryl direct physician supervision with 2.5 mg of Versed and 175 mcg fentanyl IV from 0420 hours to 0710 hours. VTE PROPHYLAXIS: None indicated for this ambulatory procedure. ANTIBIOTIC PROPHYLAXIS: None indicated FLUORO TIME/RADIATION DOSE: 31. 8 minutes, Air Kerma of 6707 mGy, [place] [address] uGy-m^2 COMPLICATIONS: None immediately. PATIENT CONDITION: Stable. COMPARISON: 02/04/[address] chest, 10/12/2019 outside CTA abdomen/pelvis TECHNIQUE: The patient was identi fied. After the risks and benefits of the procedure were discussed with the patient, an informed written consent was obtained. The patient was then brought back to interventional suite and placed supine on the table. Appropriate time out was per formed to confirm patient identity and planned procedure. The patient was then prepped and draped in the normal sterile fashion. Strict hand hygiene protocol was observed with the operators doing a surgical hand scrub. All personnel in the renea m were attired in surgical hat and mask. The operators were in surgical hat, mask, sterile gloves and gowns. The sites were prepped with 2% chlorhexidine for cutaneous antisepsis, followed by sterile barrier draping. Conscious sedation was initi ated. AORTOGRAM AND LEFT RENAL ARTERIOGRAPHY AND EMBOLIZATION: The right common femoral artery was accessed with a micropuncture set. A 5 Fr vascular sheath was then placed within the artery. A DSA (Digital Subtraction Angiography) was perfo rmed through the sheath in the common femoral artery. Over an 0.035 in guidewire, a 5 [place]ger Contra 2 was not successful at selecting the left renal arteries, and so a 5 [place] Omniflush was advanced to T12, above the renal arteries. Aortogram s howed the locations of the two left renal arteries, superoposterior and anteroinferior, and no active extravasation, blush, or pseudoaneurysm was seen. Then, the Omniflush was exchanged for the Contra 2 catheter which was advanced into the lef t superoposterior renal artery; DSA showed no active extravasation, blush, or pseudoaneurysm. After further more peripheral selection of the main branch of the left superoposterior renal artery with the Progreat microcatheter, still no active ex travasation, blush, or pseudoaneurysm was seen. Therefore, the Contra 2 was used to select the left anteroinferior renal artery; DSA showed at least 4-5 sites of active extravasation at the mid to lower renal pole, of varying severity. After p lacement of the Progreat microcatheter more peripherally in the main branch of the left anteroinferior renal artery, it was noted that the greatest extravasation was from the inferoanterior left renal artery inferolateral subsegmental branch to the lower pole, with a bare spot in this region of the lower pole, in keeping with a known renal cyst, which previously measured simple fluid density on 02/04/[address] chest but measured blood density on 10/12/2019 outside CTA abdomen/ pelvis. It was attempted to select this branch with a microcatheter, but first selected was the inferoanterior left renal artery inferomedial subsegmental branch to lower pole; DSA at this branch showed no active extravasation, blush, or pseudoa neurysm at these terminal branches, but did show active extravasation upon reflux into the targeted branch. Next, the targeted branch--the inferoanterior left renal artery inferolateral subsegmental branch to lower pole--was selected, with DSA confirming prompt active extravasation. The vessel was more peripherally selected to spare as much non-target renal parenchyma as possible, and satisfactory position was confirmed on DSA; this branch was embolized to stasis with Mc. Post embo lization DSA of the left anteroinferior renal artery through the Contra 2 demonstrated no active extravasation, blush, or pseudoaneurysm at the target vessel, with slightly enlarged area of parenchymal non-filling defect, in keeping with embol ization of this renal sub-segment. Post-embolization DSA also showed additional 3 areas of slow-flow active extravasation at branches involving about 50% of the left renal parenchyma. Branches supplying the largest of these--the inferoanterior l eft renal artery lateral inferior subsegmental branch to lower pole and the inferoanterior left renal artery lateral superior subsegmental branch to lower pole--were serially selected, but DSA confirmed that the active extravasation was slow-tam w. Given these findings, it was decided that the risk of harm to the [place] renal parenchyma in this patient with existing renal insufficiency exceeded the likely gain from embolization at this time. All catheters were removed. The vascular s cyril was removed. AngioSeal VIP was used for vascular closure with no hematoma. A sterile dressing was placed. The patient tolerated the procedure well, with no immediate complication. The patient was transferred to recovery in stable condit ion. The findings were discussed with the patient's family, son Jesus Manuel and daughter Caitlyn, in person after the case. These findings were discussed by executive vice president and chief financial officer Dr. Ramos Wyatt with trauma surgery ICU member Dr. Shaw at 0755 hours on . FINDINGS: As above. IMPRESSION: 1. Two left renal arteries; active extravasation of varying degree from mid to lower pole multiple branches (4-5) of the anteroinferior left renal artery. 2. Successful angiography and emboliz ation of the site of brisk active extravasation--possibly bleeding into her known left renal cyst--at the inferoanterior left renal artery inferolateral subsegmental branch to lower pole. 3. Other sites of active extravasation were noted to be slow-flow, with the two most suspicious sites interrogated and this finding confirmed on DSA. 4. Given these findings, it was decided that the risk of harm to the [place] renal parenchyma in this patient with existing renal insufficiency exc eeded the likely gain from embolization of multiple sites at thistime. RECOMMENDATIONS: * Given the embolization of the major site of active extravasation (left renal artery, lower pole branch, inferoanterior left renal artery inferolateral subsegmental branch to lower pole) but non-embolization of other sites of slow-flow active extravasation in order to spare renal parenchyma, IR recommendation is to not restart anticoagulation/antiplatelets except under very close monitoring and with a low threshold to discontinue them. * Per her family, the patient's Xarelto is for treating atrial fibrillation which is intermittent. It may be helpful to explore other options for decreasing stroke risk, such as cardiac ablation and/ or left atrial appendage closure. * This patient has a difficult situation. Any future anticoagulation/antiplatelets must be carefully weighed against her bleeding risk--particularly as noted at this left kidney--and potential further loss of renal parenchyma and renal function if additional renal tissue must be sacrificed by embolization. * MRI renal lesion protocol without and with IV contrast, perhaps in a day or two post-procedure, will likely be helpful to assess for any un derlying occult renal mass. * If the patient remains hemodynamically stable, the large perirenal hematoma can be percutaneously drained after about 2-3 weeks to try to aid recovery of the remaining left renal parenchyma, as well as for patient comfort. CRITICAL RESULT: No. COMMUNICATION: The findings were discussed with the patient's family, son Jesus Manuel and daughter Caitlyn, in person after the case. These findings were discussed by executive vice president and chief financial officer Dr. Ramos Wyatt with trauma [facility] ICU member Dr. Shaw at 0755 hours on 10/13/2019. ATTESTATION: Not Applicable. Verified by: DIANDRA BRADEN M.D. on Oct 16 2019 9:35P Transcribed by: PSCB on Oct 16 2019 9:35P Dictated by: DIANDRA BRADEN M.D. on Oct 13 8:24A us Diandra Braden MD IMG IR PROCEDURES Final R esult * IR VIR HISTORICAL (10/13/2019 7:18 AM EST) Anatomical Region Laterality Modality X-Ray Angiograph y Narrative 10/16/2019 9:36 PM EST REQUESTING PHYSICIAN: DIANDRA BRADEN REASON FOR EXAMINATION/PROCEDURE: ?? * ??angiographic eval and embolization of left retroperitoneal bleed EXAMINATION / PROCEDURE: ANGIO NOTIFICATION Feb ??6 2019 07:18; LE FT RENAL 2ND ORDER Feb ??6 2019:18; Sedation 1st 15 mins >=5yo Feb ??6 2019:18; Sedation ea add 15 mins any age Feb ??6 2019 07:18; Sedation ea add 15 mins any age Feb ?? 6 2019:18; Sedation ea add 15 ? PROCEDURE(S): ?? * ??ULTRA SOUND GUIDED ACCESS TO THE RIGHT COMMON FEMORAL ARTERY * ??ANGIOGRAPHY OF THE RIGHT COMMON FEMORAL ARTERY * ??AORTOGRAM * ??SELECTIVE ANGIOGRAPHY OF THE SUPEROPOSTERIOR LEFT RENAL ARTERY * ??SELECTIVE ANGIOGRAPHY OF THE INFEROANTERIOR LEFT RENAL ALVINO RY * ??SELECTIVE ANGIOGRAPHY OF THE INFEROANTERIOR LEFT RENAL ARTERY INFEROMEDIAL SUBSEGMENTAL BRANCH TO LOWER POLE * ??SELECTIVE ANGIOGRAPHY OF THE INFEROANTERIOR LEFT RENAL ARTERY INFEROLATERAL SUBSEGMENTAL BRANCH TO LOWER POLE * ??SELECTIVE ANG IOGRAPHY OF THE INFEROANTERIOR LEFT RENAL ARTERY LATERAL INFERIOR SUBSEGMENTAL BRANCH TO LOWER POLE * ??SELECTIVE ANGIOGRAPHY OF THE INFEROANTERIOR LEFT RENAL ARTERY LATERAL SUPERIOR SUBSEGMENTAL BRANCH TO LOWER POLE * ??EMBOLIZATION OF THE INFE ROANTERIOR LEFT RENAL ARTERY INFEROLATERAL SUBSEGMENTAL BRANCH TO LOWER POLE * ??CLOSURE DEVICE USED AT RIGHT COMMON FEMORAL ARTERY * ??CONSCIOUS SEDATION CLINICAL HISTORY: ??IR consulted for left renal active extravasation seen on CTA. Pleasant ??69 year old woman with intermittent atrial fibrillation who reports starting Xarelto August 2019 and developing left flank pain a few weeks ago. Her left flank pain became intolerable yesterday; no trauma, but she reports a recent and ongoing ??UTI as well as exercising on her stationary recumbent bicycle; CTA prior to consult showed the left renal active extravasation. She also has Henoch-Schonlein purpura and mild renal insufficiency. No known history of cancer. LOCAL AREA NETWORK ADMINISTRATOR: ??Diandra Braden M.D. SECONDARY BULL RIDER: Ramos Wyatt M.D. NURSE: See RN note; Prisca. TECH: See Technologist note; Justin. MEDICATIONS: 1% Lidocaine Subcutaneously. Moderate sedation was performed by a trained interventional radiology nurse un cheryl direct physician supervision with 2.5 mg of Versed and 175 mcg fentanyl IV from 0420 hours to 0710 hours. VTE PROPHYLAXIS: None indicated for this ambulatory procedure. ANTIBIOTIC PROPHYLAXIS: None indicated FLUORO TIME/RADIATION DOSE: 31. 8 minutes, Air Kerma of 6707 [place] [address] uGy-m^2 COMPLICATIONS: ??None immediately. PATIENT CONDITION: ??Stable. COMPARISON: ??02/04/[address] chest, 10/12/2019 outside CTA abdomen/pelvis TECHNIQUE: ?? The patient was identi fied. After the risks and benefits of the procedure were discussed with the patient, an informed written consent was obtained. The patient was then brought back to interventional suite and placed supine on the table. Appropriate time out was per formed to confirm patient identity and planned procedure. The patient was then prepped and draped in the normal sterile fashion. Strict hand hygiene protocol was observed with the operators doing a surgical hand scrub. All personnel [facility] the [facility] were attired in surgical hat and mask. The operators were in surgical hat, mask, sterile gloves and gowns. The sites were prepped with 2% chlorhexidine for cutaneous antisepsis, followed by sterile barrier draping. Conscious sedation was initi ated. ?? AORTOGRAM AND LEFT RENAL ARTERIOGRAPHY AND EMBOLIZATION: The right common femoral artery was accessed with a micropuncture set. A 5 Fr vascular sheath was then placed within the artery. A DSA (Digital Subtraction Angiography) was perfo rmed through the sheath in the common femoral artery. Over an 0.035 in guidewire, a 5 [place] Contra 2 was not successful at selecting the left renal arteries, and so a 5 [place] Omniflush was advanced to T12, above the renal arteries. Aortogram s howed the locations of the two left renal arteries, superoposterior and anteroinferior, and no active extravasation, blush, or pseudoaneurysm was seen. Then, the Omniflush was exchanged for the Contra 2 catheter which was advanced into the lef t superoposterior renal artery; DSA showed no active extravasation, blush, or pseudoaneurysm. After further more peripheral selection of the main branch of the left superoposterior renal artery with the Progreat microcatheter, still no active ex travasation, blush, or pseudoaneurysm was seen. Therefore, the Contra 2 was used to select the left anteroinferior renal artery; DSA showed at least 4-5 sites of active extravasation at the mid to lower renal pole, of varying severity. After p lacement of the Progreat microcatheter more peripherally in the main branch of the left anteroinferior renal artery, it was noted that the greatest extravasation was from the inferoanterior left renal artery inferolateral subsegmental branch to the lower pole, with a bare spot in this region of the lower pole, in keeping with a known renal cyst, which previously measured simple fluid density on 02/04/[address] chest but measured blood density on 10/12/2019 outside CTA abdomen/ pelvis. It was attempted to select this branch with a microcatheter, but first selected was the inferoanterior left renal artery inferomedial subsegmental branch to lower pole; DSA at this branch showed no active extravasation, blush, or pseudoa neurysm at these terminal branches, but did show active extravasation upon reflux into the targeted branch. Next, the targeted branch--the inferoanterior left renal artery inferolateral subsegmental branch to lower pole--was selected, with DSA ??confirming prompt active extravasation. The vessel was more peripherally selected to spare as much non-target renal parenchyma as possible, and satisfactory position was confirmed on DSA; this branch was embolized to stasis with [place]. Post embo lization DSA of the left anteroinferior renal artery through the Contra 2 demonstrated no active extravasation, blush, or pseudoaneurysm at the target vessel, with slightly enlarged area of parenchymal non-filling defect, in keeping with embol ization of this renal sub-segment. Post-embolization DSA also showed additional 3 areas of slow-flow active extravasation at branches involving about 50% of the left renal parenchyma. Branches supplying the largest of these--the inferoanterior l eft renal artery lateral inferior subsegmental branch to lower pole and the inferoanterior left renal artery lateral superior subsegmental branch to lower pole--were serially selected, but DSA confirmed that the active extravasation was slow-tam w. Given these findings, it was decided that the risk of harm to the [place] renal parenchyma in this patient with existing renal insufficiency exceeded the likely gain from embolization at this time. All catheters were removed. The vascular s cyril was removed. AngioSeal VIP was used for vascular closure with no hematoma. A sterile dressing was placed. The patient tolerated the procedure well, with no immediate complication. The patient was transferred to recovery in stable condit ion. The findings were discussed with the patient's family, son Jesus Manuel and daughter Caitlyn, in person after the case. These findings were discussed by executive vice president and chief financial officer Dr. Ramos Wyatt with trauma surgery ICU member Dr. Shaw at 0755 hours on . FINDINGS: As above. ?? IMPRESSION: 1. ??Two left renal arteries; active extravasation of varying degree from mid to lower pole multiple branches (4-5) of the anteroinferior left renal artery. 2. ??Successful angiography and emboliz ation of the site of brisk active extravasation--possibly bleeding into her known left renal cyst--at the inferoanterior left renal artery inferolateral subsegmental branch to lower pole. 3. ??Other sites of active extravasation were noted to be ??slow-flow, with the two most suspicious sites interrogated and this finding confirmed on DSA. 4. ??Given these findings, it was decided that the risk of harm to the [place] renal parenchyma in this patient with existing renal insufficiency exc eeded the likely gain from embolization of multiple sites at this time. RECOMMENDATIONS: * ??Given the embolization of the major site of active extravasation (left renal artery, lower pole branch, inferoanterior left renal artery inferolateral subsegmental branch to lower pole) but non-embolization of other sites of slow-flow active extravasation in order to spare renal parenchyma, IR recommendation is to not restart anticoagulation/antiplatelets except under very close monitoring and ??with a low threshold to discontinue them. * ??Per her family, the patient's Xarelto is for treating atrial fibrillation which is intermittent. It may be helpful to explore other options for decreasing stroke risk, such as cardiac ablation and/ or left atrial appendage closure. * ??This patient has a difficult situation. Any future anticoagulation/antiplatelets must be carefully weighed against her bleeding risk--particularly as noted at this left kidney--and potential further loss of renal parenchyma and renal function if additional renal tissue must be sacrificed by embolization. * ??MRI renal lesion protocol without and with IV contrast, perhaps in a day or two post-procedure, will likely be helpful to assess for any un derlying occult renal mass. * ??If the patient remains hemodynamically stable, the large perirenal hematoma can be percutaneously drained after about 2-3 weeks to try to aid recovery of the remaining left renal parenchyma, as well as for patient ??comfort. CRITICAL RESULT: No. COMMUNICATION: The findings were discussed with the patient's family, son Jesus Manuel and daughter Caitlyn, in person after the case. These findings were discussed by executive vice president and chief financial officer Dr. Ramos Wyatt with trauma [facility] ICU member Dr. Shaw at 0755 hours on 10/13/2019. ATTESTATION: Not Applicable. ?? Verified by: DIANDRA BRADEN M.D. on Oct ??2019 ??9:35P Transcribed by: [facility] on Oct ??2019 ??9:35P Dictated by: DIANDRA BRADEN M.D. on Feb ??6 2 020 ??8:24A Procedure Note [place] Diandra Sydnie - 12/31/2020 REQUESTING PHYSICIAN: DIANDRA BRADEN REASON FOR EXAMINATION/PROCEDURE: * angiographic eval and embolization of left retroperitoneal bleed EXAMINATION / PROCEDURE: ANGIO NOTIFICATION Oct 13 2019:18; LE FT RENAL 2ND ORDER Oct 13 2019:18; Sedation 1st 15 mins >=5yo Oct 13 201918; Sedation ea add 15 mins any age Oct 13 201918; Sedation ea add 15 mins any age Oct 13 201918; Sedation ea add 15 PROCEDURE(S): * ULTRA SOUND GUIDED ACCESS TO THE RIGHT COMMON FEMORAL ARTERY * ANGIOGRAPHY OF THE RIGHT COMMON FEMORAL ARTERY * AORTOGRAM * SELECTIVE ANGIOGRAPHY OF THE SUPEROPOSTERIOR LEFT RENAL ARTERY * SELECTIVE ANGIOGRAPHY OF THE INFEROANTERIOR LEFT RENAL [place] RY * SELECTIVE ANGIOGRAPHY OF THE INFEROANTERIOR LEFT RENAL ARTERY INFEROMEDIAL SUBSEGMENTAL BRANCH TO LOWER POLE * SELECTIVE ANGIOGRAPHY OF THE INFEROANTERIOR LEFT RENAL ARTERY INFEROLATERAL SUBSEGMENTAL BRANCH TO LOWER POLE * SELECTIVE ANG IOGRAPHY OF THE INFEROANTERIOR LEFT RENAL ARTERY LATERAL INFERIOR SUBSEGMENTAL BRANCH TO LOWER POLE * SELECTIVE ANGIOGRAPHY OF THE INFEROANTERIOR LEFT RENAL ARTERY LATERAL SUPERIOR SUBSEGMENTAL BRANCH TO LOWER POLE * EMBOLIZATION OF THE INFE ROANTERIOR LEFT RENAL ARTERY INFEROLATERAL SUBSEGMENTAL BRANCH TO LOWER POLE * CLOSURE DEVICE USED AT RIGHT COMMON FEMORAL ARTERY * CONSCIOUS SEDATION CLINICAL HISTORY: IR consulted for left renal active extravasation seen on CTA. Pleasant 69 year old woman with intermittent atrial fibrillation who reports starting Xarelto August 2019 and developing left flank pain a few weeks ago. Her left flank pain became intolerable yesterday; no trauma, but she reports a recent and ongoing UTI as well as exercising on her stationary recumbent bicycle; CTA prior to consult showed the left renal active extravasation. She also has Henoch-Schonlein purpura and mild renal insufficiency. No known history of cancer. LOCAL AREA NETWORK ADMINISTRATOR: Diandra Braden M.D. SECONDARY BULL RIDER: Ramos Wyatt M.D. NURSE: Linwood RN note; Prisca. TECH: See Technologist note; Justin. MEDICATIONS: 1% Lidocaine Subcutaneously. Moderate sedation was performed by a trained interventional radiology nurse un cheryl direct physician supervision with 2.5 mg of Versed and 175 mcg fentanyl IV from 0420 hours to 0710 hours. VTE PROPHYLAXIS: None indicated for this ambulatory procedure. ANTIBIOTIC PROPHYLAXIS: None indicated FLUORO TIME/RADIATION DOSE: 31. 8 minutes, Air Kerma of 6707 [place]Gy[place] [address] uGy-m^2 COMPLICATIONS: None immediately. PATIENT CONDITION: Stable. COMPARISON: 02/04/[address] chest, 10/12/2019 outside CTA abdomen/pelvis TECHNIQUE: The patient was identi fied. After the risks and benefits of the procedure were discussed with the patient, an informed written consent was obtained. The patient was then brought back to interventional suite and placed supine on the table. Appropriate time out was per formed to confirm patient identity and planned procedure. The patient was then prepped and draped in the normal sterile fashion. Strict hand hygiene protocol was observed with the operators doing a surgical hand scrub. All personnel in the [facility] were attired in surgical hat and mask. The operators were in surgical hat, mask, sterile gloves and gowns. The sites were prepped with 2% chlorhexidine for cutaneous antisepsis, followed by sterile barrier draping. Conscious sedation was initi ated. AORTOGRAM AND LEFT RENAL ARTERIOGRAPHY AND EMBOLIZATION: The right common femoral artery was accessed with a micropuncture set. A 5 Fr vascular sheath was then placed within the artery. A DSA (Digital Subtraction Angiography) was perfo rmed through the sheath in the common femoral artery. Over an 0.035 in guidewire, a 5 [place] Contra 2 was not successful at selecting the left renal arteries, and so a 5 [place] Omniflush was advanced to T12, above the renal arteries. Aortogram s howed the locations of the two left renal arteries, superoposterior and anteroinferior, and no active extravasation, blush, or pseudoaneurysm was seen. Then, the Omniflush was exchanged for the Contra 2 catheter which was advanced into the lef t superoposterior renal artery; DSA showed no active extravasation, blush, or pseudoaneurysm. After further more peripheral selection of the main branch of the left superoposterior renal artery with the Progreat microcatheter, still no active ex travasation, blush, or pseudoaneurysm was seen. Therefore, the Contra 2 was used to select the left anteroinferior renal artery; DSA showed at least 4-5 sites of active extravasation at the mid to lower renal pole, of varying severity. After p lacement of the Progreat microcatheter more peripherally in the main branch of the left anteroinferior renal artery, it was noted that the greatest extravasation was from the inferoanterior left renal artery inferolateral subsegmental branch to the lower pole, with a bare spot in this region of the lower pole, in keeping with a known renal cyst, which previously measured simple fluid density on 02/04/[address] chest but measured blood density on 10/12/2019 outside CTA abdomen/ pelvis. It was attempted to select this branch with a microcatheter, but first selected was the inferoanterior left renal artery inferomedial subsegmental branch to lower pole; DSA at this branch showed no active extravasation, blush, or pseudoa neurysm at these terminal branches, but did show active extravasation upon reflux into the targeted branch. Next, the targeted branch--the inferoanterior left renal artery inferolateral subsegmental branch to lower pole--was selected, with DSA confirming prompt active extravasation. The vessel was more peripherally selected to spare as much non-target renal parenchyma as possible, and satisfactory position was confirmed on DSA; this branch was embolized to stasis with [place]. Post embo lization DSA of the left anteroinferior renal artery through the Contra 2 demonstrated no active extravasation, blush, or pseudoaneurysm at the target vessel, with slightly enlarged area of parenchymal non-filling defect, in keeping with embol ization of this renal sub-segment. Post-embolization DSA also showed additional 3 areas of slow-flow active extravasation at branches involving about 50% of the left renal parenchyma. Branches supplying the largest of these--the inferoanterior l eft renal artery lateral inferior subsegmental branch to lower pole and the inferoanterior left renal artery lateral superior subsegmental branch to lower pole--were serially selected, but DSA confirmed that the active extravasation was slow-tam w. Given these findings, it was decided that the risk of harm to the [place] renal parenchyma in this patient with existing renal insufficiency exceeded the likely gain from embolization at this time. All catheters were removed. The vascular s cyril was removed. AngioSeal VIP was used for vascular closure with no hematoma. A sterile dressing was placed. The patient tolerated the procedure well, with no immediate complication. The patient was transferred to recovery in stable condit ion. The findings were discussed with the patient's family, son Jesus Manuel and daughter Caitlyn, in person after the case. These findings were discussed by executive vice president and chief financial officer Dr. Ramos Wyatt with trauma surgery ICU member Dr. Shaw at 0755 hours on . FINDINGS: As above. IMPRESSION: 1. Two left renal arteries; active extravasation of varying degree from mid to lower pole multiple branches (4-5) of the anteroinferior left renal artery. 2. Successful angiography and emboliz ation of the site of brisk active extravasation--possibly bleeding into her known left renal cyst--at the inferoanterior left renal artery inferolateral subsegmental branch to lower pole. 3. Other sites of active extravasation were noted to be slow-flow, with the two most suspicious sites interrogated and this finding confirmed on DSA. 4. Given these findings, it was decided that the risk of harm to the [place] renal parenchyma in this patient with existing renal insufficiency exc eeded the likely gain from embolization of multiple sites at thistime. RECOMMENDATIONS: * Given the embolization of the major site of active extravasation (left renal artery, lower pole branch, inferoanterior left renal artery inferolateral subsegmental branch to lower pole) but non-embolization of other sites of slow-flow active extravasation in order to spare renal parenchyma, IR recommendation is to not restart anticoagulation/antiplatelets except under very close monitoring and with a low threshold to discontinue them. * Per her family, the patient's Xarelto is for treating atrial fibrillation which is intermittent. It may be helpful to explore other options for decreasing stroke risk, such as cardiac ablation and/ or left atrial appendage closure. * This patient has a difficult situation. Any future anticoagulation/antiplatelets must be carefully weighed against her bleeding risk--particularly as noted at this left kidney--and potential further loss of renal parenchyma and renal function if additional renal tissue must be sacrificed by embolization. * MRI renal lesion protocol without and with IV contrast, perhaps in a day or two post-procedure, will likely be helpful to assess for any un derlying occult renal mass. * If the patient remains hemodynamically stable, the large perirenal hematoma can be percutaneously drained after about 2-3 weeks to try to aid recovery of the remaining left renal parenchyma, as well as for patient comfort. CRITICAL RESULT: No. COMMUNICATION: The findings were discussed with the patient's family, son Jesus Manuel and daughter Caitlyn, in person after the case. These findings were discussed by executive vice president and chief financial officer Dr. Ramos Wyatt with trauma [facility] ICU member Dr. Shaw at 0755 hours on 10/13/2019. ATTESTATION: Not Applicable. Verified by: DIANDRA BRADEN M.D. on Oct 16 2019 9:35P Transcribed by: [facility] on Oct 16 2019 9:35P Dictated by: DIANDRA BRADEN M.D. on Oct 13 2 020 8:24A us Diandra Braden MD IMG IR PROCEDURES Final R esult * IR VIR HISTORICAL (10/13/2019 7:18 AM EST) Anatomical Region Laterality Modality X-Ray Angiograph y Narrative 10/16/2019 9:36 PM EST REQUESTING PHYSICIAN: DIANDRA BRADEN REASON FOR EXAMINATION/PROCEDURE: ?? * ??angiographic eval and embolization of left retroperitoneal bleed EXAMINATION / PROCEDURE: ANGIO NOTIFICATION Feb ??6 2019 07:18; LE FT RENAL 2ND ORDER Feb ??6 2019:18; Sedation 1st 15 mins >=5yo Feb ??6 2019 07:18; Sedation ea add 15 mins any age Feb ??6 2019 07:18; Sedation ea add 15 mins any age Feb ?? 6 2019:18; Sedation ea add 15 ? PROCEDURE(S): ?? * ??ULTRA SOUND GUIDED ACCESS TO THE RIGHT COMMON FEMORAL ARTERY * ??ANGIOGRAPHY OF THE RIGHT COMMON FEMORAL ARTERY * ??AORTOGRAM * ??SELECTIVE ANGIOGRAPHY OF THE SUPEROPOSTERIOR LEFT RENAL ARTERY * ??SELECTIVE ANGIOGRAPHY OF THE INFEROANTERIOR LEFT RENAL [place]VINO RY * ??SELECTIVE ANGIOGRAPHY OF THE INFEROANTERIOR LEFT RENAL ARTERY INFEROMEDIAL SUBSEGMENTAL BRANCH TO LOWER POLE * ??SELECTIVE ANGIOGRAPHY OF THE INFEROANTERIOR LEFT RENAL ARTERY INFEROLATERAL SUBSEGMENTAL BRANCH TO LOWER POLE * ??SELECTIVE ANG IOGRAPHY OF THE INFEROANTERIOR LEFT RENAL ARTERY LATERAL INFERIOR SUBSEGMENTAL BRANCH TO LOWER POLE * ??SELECTIVE ANGIOGRAPHY OF THE INFEROANTERIOR LEFT RENAL ARTERY LATERAL SUPERIOR SUBSEGMENTAL BRANCH TO LOWER POLE * ??EMBOLIZATION OF THE INFE ROANTERIOR LEFT RENAL ARTERY INFEROLATERAL SUBSEGMENTAL BRANCH TO LOWER POLE * ??CLOSURE DEVICE USED AT RIGHT COMMON FEMORAL ARTERY * ??CONSCIOUS SEDATION CLINICAL HISTORY: ??IR consulted for left renal active extravasation seen on CTA. Pleasant ??69 year old woman with intermittent atrial fibrillation who reports starting Xarelto August 2019 and developing left flank pain a few weeks ago. Her left flank pain became intolerable yesterday; no trauma, but she reports a recent and ongoing ??UTI as well as exercising on her stationary recumbent bicycle; CTA prior to consult showed the left renal active extravasation. She also has Henoch-Schonlein purpura and mild renal insufficiency. No known history of cancer. LOCAL AREA NETWORK ADMINISTRATOR: ??Diandra Braden M.D. SECONDARY BULL RIDER: Ramos Wyatt M.D. NURSE: See RN note; Prisca. TECH: See Technologist note; Justin. MEDICATIONS: 1% Lidocaine Subcutaneously. Moderate sedation was performed by a trained interventional radiology nurse un cheryl direct physician supervision with 2.5 mg of Versed and 175 mcg fentanyl IV from 0420 hours to 0710 hours. VTE PROPHYLAXIS: None indicated for this ambulatory procedure. ANTIBIOTIC PROPHYLAXIS: None indicated FLUORO TIME/RADIATION DOSE: 31. 8 minutes, Air Kerma of 6707 mGy, [place] [address] uGy-m^2 COMPLICATIONS: ??None immediately. PATIENT CONDITION: ??Stable. COMPARISON: ??02/04/[address] chest, 10/12/2019 outside CTA abdomen/pelvis TECHNIQUE: ?? The patient was identi fied. After the risks and benefits of the procedure were discussed with the patient, an informed written consent was obtained. The patient was then brought back to interventional suite and placed supine on the table. Appropriate time out was per formed to confirm patient identity and planned procedure. The patient was then prepped and draped in the normal sterile fashion. Strict hand hygiene protocol was observed with the operators doing a surgical hand scrub. All personnel in the [facility] were attired in surgical hat and mask. The operators were in surgical hat, mask, sterile gloves and gowns. The sites were prepped with 2% chlorhexidine for cutaneous antisepsis, followed by sterile barrier draping. Conscious sedation was initi ated. ?? AORTOGRAM AND LEFT RENAL ARTERIOGRAPHY AND EMBOLIZATION: The right common femoral artery was accessed with a micropuncture set. A 5 Fr vascular sheath was then placed within the artery. A DSA (Digital Subtraction Angiography) was perfo rmed through the sheath in the common femoral artery. Over an 0.035 in guidewire, a 5 [place] Contra 2 was not successful at selecting the left renal arteries, and so a 5 [place] Omniflush was advanced to T12, above the renal arteries. Aortogram s howed the locations of the two left renal arteries, superoposterior and anteroinferior, and no active extravasation, blush, or pseudoaneurysm was seen. Then, the Omniflush was exchanged for the Contra 2 catheter which was advanced into the lef t superoposterior renal artery; DSA showed no active extravasation, blush, or pseudoaneurysm. After further more peripheral selection of the main branch of the left superoposterior renal artery with the Progreat microcatheter, still no active ex travasation, blush, or pseudoaneurysm was seen. Therefore, the Contra 2 was used to select the left anteroinferior renal artery; DSA showed at least 4-5 sites of active extravasation at the mid to lower renal pole, of varying severity. After p lacement of the Progreat microcatheter more peripherally in the main branch of the left anteroinferior renal artery, it was noted that the greatest extravasation was from the inferoanterior left renal artery inferolateral subsegmental branch to the lower pole, with a bare spot in this region of the lower pole, in keeping with a known renal cyst, which previously measured simple fluid density on 02/04/[address] chest but measured blood density on 10/12/2019 outside CTA abdomen/ pelvis. It was attempted to select this branch with a microcatheter, but first selected was the inferoanterior left renal artery inferomedial subsegmental branch to lower pole; DSA at this branch showed no active extravasation, blush, or pseudoa neurysm at these terminal branches, but did show active extravasation upon reflux into the targeted branch. Next, the targeted branch--the inferoanterior left renal artery inferolateral subsegmental branch to lower pole--was selected, with DSA ??confirming prompt active extravasation. The vessel was more peripherally selected to spare as much non-target renal parenchyma as possible, and satisfactory position was confirmed on DSA; this branch was embolized to stasis with [place]. Post embo lization DSA of the left anteroinferior renal artery through the Contra 2 demonstrated no active extravasation, blush, or pseudoaneurysm at the target vessel, with slightly enlarged area of parenchymal non-filling defect, in keeping with embol ization of this renal sub-segment. Post-embolization DSA also showed additional 3 areas of slow-flow active extravasation at branches involving about 50% of the left renal parenchyma. Branches supplying the largest of these--the inferoanterior l eft renal artery lateral inferior subsegmental branch to lower pole and the inferoanterior left renal artery lateral superior subsegmental branch to lower pole--were serially selected, but DSA confirmed that the active extravasation was slow-tam w. Given these findings, it was decided that the risk of harm to the [place] renal parenchyma in this patient with existing renal insufficiency exceeded the likely gain from embolization at this time. All catheters were removed. The vascular s cyril was removed. AngioSeal VIP was used for vascular closure with no hematoma. A sterile dressing was placed. The patient tolerated the procedure well, with no immediate complication. The patient was transferred to recovery in stable condit ion. The findings were discussed with the patient's family, son Jesus Manuel and daughter Caitlyn, in person after the case. These findings were discussed by executive vice president and chief financial officer Dr. Ramos Wyatt with trauma surgery ICU member Dr. Shaw at 0755 hours on . FINDINGS: As above. ?? IMPRESSION: 1. ??Two left renal arteries; active extravasation of varying degree from mid to lower pole multiple branches (4-5) of the anteroinferior left renal artery. 2. ??Successful angiography and emboliz ation of the site of brisk active extravasation--possibly bleeding into her known left renal cyst--at the inferoanterior left renal artery inferolateral subsegmental branch to lower pole. 3. ??Other sites of active extravasation were noted to be ??slow-flow, with the two most suspicious sites interrogated and this finding confirmed on DSA. 4. ??Given these findings, it was decided that the risk of harm to the [place] renal parenchyma in this patient with existing renal insufficiency exc eeded the likely gain from embolization of multiple sites at this time. RECOMMENDATIONS: * ??Given the embolization of the major site of active extravasation (left renal artery, lower pole branch, inferoanterior left renal artery inferolateral subsegmental branch to lower pole) but non-embolization of other sites of slow-flow active extravasation in order to spare renal parenchyma, IR recommendation is to not restart anticoagulation/antiplatelets except under very close monitoring and ??with a low threshold to discontinue them. * ??Per her family, the patient's Xarelto is for treating atrial fibrillation which is intermittent. It may be helpful to explore other options for decreasing stroke risk, such as cardiac ablation and/ or left atrial appendage closure. * ??This patient has a difficult situation. Any future anticoagulation/antiplatelets must be carefully weighed against her bleeding risk--particularly as noted at this left kidney--and potential further loss of renal parenchyma and renal function if additional renal tissue must be sacrificed by embolization. * ??MRI renal lesion protocol without and with IV contrast, perhaps in a day or two post-procedure, will likely be helpful to assess for any un derlying occult renal mass. * ??If the patient remains hemodynamically stable, the large perirenal hematoma can be percutaneously drained after about 2-3 weeks to try to aid recovery of the remaining left renal parenchyma, as well as for patient ??comfort. CRITICAL RESULT: No. COMMUNICATION: The findings were discussed with the patient's family, son Jesus Manuel and daughter Caitlyn, in person after the case. These findings were discussed by executive vice president and chief financial officer Dr. Ramos Wyatt with trauma [facility] ICU member Dr. Shaw at 0755 hours on 10/13/2019. ATTESTATION: Not Applicable. ?? Verified by: DIANDRA BRADEN M.D. on Oct ??2019 ??9:35P Transcribed by: [facility] on Oct ??2019 ??9:35P Dictated by: DIANDRA BRADEN M.D. on Oct ??6 2 020 ??8:24A Procedure Note Diandra Braden - 12/31/2020 REQUESTING PHYSICIAN: DIANDRA BRADEN REASON FOR EXAMINATION/PROCEDURE: * angiographic eval and embolization of left retroperitoneal bleed EXAMINATION / PROCEDURE: ANGIO NOTIFICATION Oct 13 2019:18; LE FT RENAL 2ND ORDER Oct 13 201918; Sedation 1st 15 mins >=5yo Oct 13 201918; Sedation ea add 15 mins any age Oct 13 201918; Sedation ea add 15 mins any age Oct 13 201918; Sedation ea add 15 PROCEDURE(S): * ULTRA SOUND GUIDED ACCESS TO THE RIGHT COMMON FEMORAL ARTERY * ANGIOGRAPHY OF THE RIGHT COMMON FEMORAL ARTERY * AORTOGRAM * SELECTIVE ANGIOGRAPHY OF THE SUPEROPOSTERIOR LEFT RENAL ARTERY * SELECTIVE ANGIOGRAPHY OF THE INFEROANTERIOR LEFT RENAL [place] RY * SELECTIVE ANGIOGRAPHY OF THE INFEROANTERIOR LEFT RENAL ARTERY INFEROMEDIAL SUBSEGMENTAL BRANCH TO LOWER POLE * SELECTIVE ANGIOGRAPHY OF THE INFEROANTERIOR LEFT RENAL ARTERY INFEROLATERAL SUBSEGMENTAL BRANCH TO LOWER POLE * SELECTIVE ANG IOGRAPHY OF THE INFEROANTERIOR LEFT RENAL ARTERY LATERAL INFERIOR SUBSEGMENTAL BRANCH TO LOWER POLE * SELECTIVE ANGIOGRAPHY OF THE INFEROANTERIOR LEFT RENAL ARTERY LATERAL SUPERIOR SUBSEGMENTAL BRANCH TO LOWER POLE * EMBOLIZATION OF THE INFE ROANTERIOR LEFT RENAL ARTERY INFEROLATERAL SUBSEGMENTAL BRANCH TO LOWER POLE * CLOSURE DEVICE USED AT RIGHT COMMON FEMORAL ARTERY * CONSCIOUS SEDATION CLINICAL HISTORY: IR consulted for left renal active extravasation seen on CTA. Pleasant 69 year old woman with intermittent atrial fibrillation who reports starting Xarelto August 2019 and developing left flank pain a few weeks ago. Her left flank pain became intolerable yesterday; no trauma, but she reports a recent and ongoing UTI as well as exercising on her stationary recumbent bicycle; CTA prior to consult showed the left renal active extravasation. She also has Henoch-Schonlein purpura and mild renal insufficiency. No known history of cancer. LOCAL AREA NETWORK ADMINISTRATOR: Diandra Braden M.D. SECONDARY BULL RIDER: Ramos Wyatt M.D. NURSE: See RN note; Prisca. TECH: See Technologist note; Justin. MEDICATIONS: 1% Lidocaine Subcutaneously. Moderate sedation was performed by a trained interventional radiology nurse un cheryl direct physician supervision with 2.5 mg of Versed and 175 mcg fentanyl IV from 0420 hours to 0710 hours. VTE PROPHYLAXIS: None indicated for this ambulatory procedure. ANTIBIOTIC PROPHYLAXIS: None indicated FLUORO TIME/RADIATION DOSE: 31. 8 minutes, Air Kerma of 6707 [place] [address] uGy-m^2 COMPLICATIONS: None immediately. PATIENT CONDITION: Stable. COMPARISON: 02/04/[address] chest, 10/12/2019 outside CTA abdomen/pelvis TECHNIQUE: The patient was identi fied. After the risks and benefits of the procedure were discussed with the patient, an informed written consent was obtained. The patient was then brought back to interventional suite and placed supine on the table. Appropriate time out was per formed to confirm patient identity and planned procedure. The patient was then prepped and draped in the normal sterile fashion. Strict hand hygiene protocol was observed with the operators doing a surgical hand scrub. All personnel in the [facility] were attired in surgical hat and mask. The operators were in surgical hat, mask, sterile gloves and gowns. The sites were prepped with 2% chlorhexidine for cutaneous antisepsis, followed by sterile barrier draping. Conscious sedation was initi ated. AORTOGRAM AND LEFT RENAL ARTERIOGRAPHY AND EMBOLIZATION: The right common femoral artery was accessed with a micropuncture set. A 5 Fr vascular sheath was then placed within the artery. A DSA (Digital Subtraction Angiography) was perfo rmed through the sheath in the common femoral artery. Over an 0.035 in guidewire, a 5 [place] Contra 2 was not successful at selecting the left renal arteries, and so a 5 [place] Omniflush was advanced to T12, above the renal arteries. Aortogram s howed the locations of the two left renal arteries, superoposterior and anteroinferior, and no active extravasation, blush, or pseudoaneurysm was seen. Then, the Omniflush was exchanged for the Contra 2 catheter which was advanced into the lef t superoposterior renal artery; DSA showed no active extravasation, blush, or pseudoaneurysm. After further more peripheral selection of the main branch of the left superoposterior renal artery with the Progreat microcatheter, still no active ex travasation, blush, or pseudoaneurysm was seen. Therefore, the Contra 2 was used to select the left anteroinferior renal artery; DSA showed at least 4-5 sites of active extravasation at the mid to lower renal pole, of varying severity. After p lacement of the Progreat microcatheter more peripherally in the main branch of the left anteroinferior renal artery, it was noted that the greatest extravasation was from the inferoanterior left renal artery inferolateral subsegmental branch to the lower pole, with a bare spot in this region of the lower pole, in keeping with a known renal cyst, which previously measured simple fluid density on 02/04/[address] chest but measured blood density on 10/12/2019 outside CTA abdomen/ pelvis. It was attempted to select this branch with a microcatheter, but first selected was the inferoanterior left renal artery inferomedial subsegmental branch to lower pole; DSA at this branch showed no active extravasation, blush, or pseudoa neurysm at these terminal branches, but did show active extravasation upon reflux into the targeted branch. Next, the targeted branch--the inferoanterior left renal artery inferolateral subsegmental branch to lower pole--was selected, with DSA confirming prompt active extravasation. The vessel was more peripherally selected to spare as much non-target renal parenchyma as possible, and satisfactory position was confirmed on DSA; this branch was embolized to stasis with [place]. Post embo lization DSA of the left anteroinferior renal artery through the Contra 2 demonstrated no active extravasation, blush, or pseudoaneurysm at the target vessel, with slightly enlarged area of parenchymal non-filling defect, in keeping with embol ization of this renal sub-segment. Post-embolization DSA also showed additional 3 areas of slow-flow active extravasation at branches involving about 50% of the left renal parenchyma. Branches supplying the largest of these--the inferoanterior l eft renal artery lateral inferior subsegmental branch to lower pole and the inferoanterior left renal artery lateral superior subsegmental branch to lower pole--were serially selected, but DSA confirmed that the active extravasation was slow-tam w. Given these findings, it was decided that the risk of harm to the [place] renal parenchyma in this patient with existing renal insufficiency exceeded the likely gain from embolization at this time. All catheters were removed. The vascular s cyril was removed. AngioSeal VIP was used for vascular closure with no hematoma. A sterile dressing was placed. The patient tolerated the procedure well, with no immediate complication. The patient was transferred to recovery in stable condit ion. The findings were discussed with the patient's family, son Jesus Manuel and daughter Caitlyn, in person after the case. These findings were discussed by executive vice president and chief financial officer Dr. Ramos Wyatt with trauma surgery ICU member Dr. Shaw at 0755 hours on . FINDINGS: As above. IMPRESSION: 1. Two left renal arteries; active extravasation of varying degree from mid to lower pole multiple branches (4-5) of the anteroinferior left renal artery. 2. Successful angiography and emboliz ation of the site of brisk active extravasation--possibly bleeding into her known left renal cyst--at the inferoanterior left renal artery inferolateral subsegmental branch to lower pole. 3. Other sites of active extravasation were noted to be slow-flow, with the two most suspicious sites interrogated and this finding confirmed on DSA. 4. Given these findings, it was decided that the risk of harm to the [place] renal parenchyma in this patient with existing renal insufficiency exc eeded the likely gain from embolization of multiple sites at thistime. RECOMMENDATIONS: * Given the embolization of the major site of active extravasation (left renal artery, lower pole branch, inferoanterior left renal artery inferolateral subsegmental branch to lower pole) but non-embolization of other sites of slow-flow active extravasation in order to spare renal parenchyma, IR recommendation is to not restart anticoagulation/antiplatelets except under very close monitoring and with a low threshold to discontinue them. * Per her family, the patient's Xarelto is for treating atrial fibrillation which is intermittent. It may be helpful to explore other options for decreasing stroke risk, such as cardiac ablation and/ or left atrial appendage closure. * This patient has a difficult situation. Any future anticoagulation/antiplatelets must be carefully weighed against her bleeding risk--particularly as noted at this left kidney--and potential further loss of renal parenchyma and renal function if additional renal tissue must be sacrificed by embolization. * MRI renal lesion protocol without and with IV contrast, perhaps in a day or two post-procedure, will likely be helpful to assess for any un derlying occult renal mass. * If the patient remains hemodynamically stable, the large perirenal hematoma can be percutaneously drained after about 2-3 weeks to try to aid recovery of the remaining left renal parenchyma, as well as for patient comfort. CRITICAL RESULT: No. COMMUNICATION: The findings were discussed with the patient's family, son Jesus Manuel and daughter Caitlyn, in person after the case. These findings were discussed by executive vice president and chief financial officer Dr. Ramos Wyatt with trauma [facility] ICU member Dr. Shaw at 0755 hours on 10/13/2019. ATTESTATION: Not Applicable. Verified by: DIANDRA BRADEN M.D. on Oct 16 2019 9:35P Transcribed by: [facility] on Oct 16 2019 9:35P Dictated by: DIANDRA BRADEN M.D. on Oct 13 2 020 8:24A us Diandra Braden MD IMG IR PROCEDURES Final R esult * IR VIR HISTORICAL (10/13/2019 7:18 AM EST) Anatomical Region Laterality Modality X-Ray Angiograph y Narrative 10/16/2019 9:36 PM EST REQUESTING PHYSICIAN: DIANDRA BRADEN REASON FOR EXAMINATION/PROCEDURE: ?? * ??angiographic eval and embolization of left retroperitoneal bleed EXAMINATION / PROCEDURE: ANGIO NOTIFICATION Feb ??6 2019 07:18; LE FT RENAL 2ND ORDER Feb ??6 2019:18; Sedation 1st 15 mins >=5yo Feb ??6 2019:18; Sedation ea add 15 mins any age Feb ??6 2019:18; Sedation ea add 15 mins any age Feb ?? 6 2019:18; Sedation ea add 15 ? PROCEDURE(S): ?? * ??ULTRA SOUND GUIDED ACCESS TO THE RIGHT COMMON FEMORAL ARTERY * ??ANGIOGRAPHY OF THE RIGHT COMMON FEMORAL ARTERY * ??AORTOGRAM * ??SELECTIVE ANGIOGRAPHY OF THE SUPEROPOSTERIOR LEFT RENAL ARTERY * ??SELECTIVE ANGIOGRAPHY OF THE INFEROANTERIOR LEFT RENAL AL[place]INO RY * ??SELECTIVE ANGIOGRAPHY OF THE INFEROANTERIOR LEFT RENAL ARTERY INFEROMEDIAL SUBSEGMENTAL BRANCH TO LOWER POLE * ??SELECTIVE ANGIOGRAPHY OF THE INFEROANTERIOR LEFT RENAL ARTERY INFEROLATERAL SUBSEGMENTAL BRANCH TO LOWER POLE * ??SELECTIVE ANG IOGRAPHY OF THE INFEROANTERIOR LEFT RENAL ARTERY LATERAL INFERIOR SUBSEGMENTAL BRANCH TO LOWER POLE * ??SELECTIVE ANGIOGRAPHY OF THE INFEROANTERIOR LEFT RENAL ARTERY LATERAL SUPERIOR SUBSEGMENTAL BRANCH TO LOWER POLE * ??EMBOLIZATION OF THE INFE ROANTERIOR LEFT RENAL ARTERY INFEROLATERAL SUBSEGMENTAL BRANCH TO LOWER POLE * ??CLOSURE DEVICE USED AT RIGHT COMMON FEMORAL ARTERY * ??CONSCIOUS SEDATION CLINICAL HISTORY: ??IR consulted for left renal active extravasation seen on CTA. Pleasant ??69 year old woman with intermittent atrial fibrillation who reports starting Xarelto August 2019 and developing left flank pain a few weeks ago. Her left flank pain became intolerable yesterday; no trauma, but she reports a recent and ongoing ??UTI as well as exercising on her stationary recumbent bicycle; CTA prior to consult showed the left renal active extravasation. She also has Henoch-Schonlein purpura and mild renal insufficiency. No known history of cancer. LOCAL AREA NETWORK ADMINISTRATOR: ??Diandra Braden M.D. SECONDARY BULL RIDER: Ramos Wytat M.D. NURSE: See RN note; Prisca. TECH: See Technologist note; Justin. MEDICATIONS: 1% Lidocaine Subcutaneously. Moderate sedation was performed by a trained interventional radiology nurse un cheryl direct physician supervision with 2.5 mg of Versed and 175 mcg fentanyl IV from 0420 hours to 0710 hours. VTE PROPHYLAXIS: None indicated for this ambulatory procedure. ANTIBIOTIC PROPHYLAXIS: None indicated FLUORO TIME/RADIATION DOSE: 31. 8 minutes, Air Kerma of 6707 [place] [address] uGy-m^2 COMPLICATIONS: ??None immediately. PATIENT CONDITION: ??Stable. COMPARISON: ??02/04/[address] chest, 10/12/2019 outside CTA abdomen/pelvis TECHNIQUE: ?? The patient was identi fied. After the risks and benefits of the procedure were discussed with the patient, an informed written consent was obtained. The patient was then brought back to interventional suite and placed supine on the table. Appropriate time out was per formed to confirm patient identity and planned procedure. The patient was then prepped and draped in the normal sterile fashion. Strict hand hygiene protocol was observed with the operators doing a surgical hand scrub. All personnel in the [facility] were attired in surgical hat and mask. The operators were in surgical hat, mask, sterile gloves and gowns. The sites were prepped with 2% chlorhexidine for cutaneous antisepsis, followed by sterile barrier draping. Conscious sedation was initi ated. ?? AORTOGRAM AND LEFT RENAL ARTERIOGRAPHY AND EMBOLIZATION: The right common femoral artery was accessed with a micropuncture set. A 5 Fr vascular sheath was then placed within the artery. A DSA (Digital Subtraction Angiography) was perfo rmed through the sheath in the common femoral artery. Over an 0.035 in guidewire, a 5 [place] Contra 2 was not successful at selecting the left renal arteries, and so a 5 [place] Omniflush was advanced to T12, above the renal arteries. Aortogram s howed the locations of the two left renal arteries, superoposterior and anteroinferior, and no active extravasation, blush, or pseudoaneurysm was seen. Then, the Omniflush was exchanged for the Contra 2 catheter which was advanced into the lef t superoposterior renal artery; DSA showed no active extravasation, blush, or pseudoaneurysm. After further more peripheral selection of the main branch of the left superoposterior renal artery with the Progreat microcatheter, still no active ex travasation, blush, or pseudoaneurysm was seen. Therefore, the Contra 2 was used to select the left anteroinferior renal artery; DSA showed at least 4-5 sites of active extravasation at the mid to lower renal pole, of varying severity. After p lacement of the Progreat microcatheter more peripherally in the main branch of the left anteroinferior renal artery, it was noted that the greatest extravasation was from the inferoanterior left renal artery inferolateral subsegmental branch to the lower pole, with a bare spot in this region of the lower pole, in keeping with a known renal cyst, which previously measured simple fluid density on 02/04/[address] chest but measured blood density on 10/12/2019 outside CTA abdomen/ pelvis. It was attempted to select this branch with a microcatheter, but first selected was the inferoanterior left renal artery inferomedial subsegmental branch to lower pole; DSA at this branch showed no active extravasation, blush, or pseudoa neurysm at these terminal branches, but did show active extravasation upon reflux into the targeted branch. Next, the targeted branch--the inferoanterior left renal artery inferolateral subsegmental branch to lower pole--was selected, with DSA ??confirming prompt active extravasation. The vessel was more peripherally selected to spare as much non-target renal parenchyma as possible, and satisfactory position was confirmed on DSA; this branch was embolized to stasis with [place]. Post embo lization DSA of the left anteroinferior renal artery through the Contra 2 demonstrated no active extravasation, blush, or pseudoaneurysm at the target vessel, with slightly enlarged area of parenchymal non-filling defect, in keeping with embol ization of this renal sub-segment. Post-embolization DSA also showed additional 3 areas of slow-flow active extravasation at branches involving about 50% of the left renal parenchyma. Branches supplying the largest of these--the inferoanterior l eft renal artery lateral inferior subsegmental branch to lower pole and the inferoanterior left renal artery lateral superior subsegmental branch to lower pole--were serially selected, but DSA confirmed that the active extravasation was slow-tam w. Given these findings, it was decided that the risk of harm to the [place] renal parenchyma in this patient with existing renal insufficiency exceeded the likely gain from embolization at this time. All catheters were removed. The vascular s cyril was removed. AngioSeal VIP was used for vascular closure with no hematoma. A sterile dressing was placed. The patient tolerated the procedure well, with no immediate complication. The patient was transferred to recovery in stable condit ion. The findings were discussed with the patient's family, son Jesus Manuel and daughter Caitlyn, in person after the case. These findings were discussed by executive vice president and chief financial officer Dr. Ramos Wyatt with trauma surgery ICU member Dr. Shaw at 0755 hours on . FINDINGS: As above. ?? IMPRESSION: 1. ??Two left renal arteries; active extravasation of varying degree from mid to lower pole multiple branches (4-5) of the anteroinferior left renal artery. 2. ??Successful angiography and emboliz ation of the site of brisk active extravasation--possibly bleeding into her known left renal cyst--at the inferoanterior left renal artery inferolateral subsegmental branch to lower pole. 3. ??Other sites of active extravasation were noted to be ??slow-flow, with the two most suspicious sites interrogated and this finding confirmed on DSA. 4. ??Given these findings, it was decided that the risk of harm to the [place] renal parenchyma in this patient with existing renal insufficiency exc eeded the likely gain from embolization of multiple sites at this time. RECOMMENDATIONS: * ??Given the embolization of the major site of active extravasation (left renal artery, lower pole branch, inferoanterior left renal artery inferolateral subsegmental branch to lower pole) but non-embolization of other sites of slow-flow active extravasation in order to spare renal parenchyma, IR recommendation is to not restart anticoagulation/antiplatelets except under very close monitoring and ??with a low threshold to discontinue them. * ??Per her family, the patient's Xarelto is for treating atrial fibrillation which is intermittent. It may be helpful to explore other options for decreasing stroke risk, such as cardiac ablation and/ or left atrial appendage closure. * ??This patient has a difficult situation. Any future anticoagulation/antiplatelets must be carefully weighed against her bleeding risk--particularly as noted at this left kidney--and potential further loss of renal parenchyma and renal function if additional renal tissue must be sacrificed by embolization. * ??MRI renal lesion protocol without and with IV contrast, perhaps in a day or two post-procedure, will likely be helpful to assess for any un derlying occult renal mass. * ??If the patient remains hemodynamically stable, the large perirenal hematoma can be percutaneously drained after about 2-3 weeks to try to aid recovery of the remaining left renal parenchyma, as well as for patient ??comfort. CRITICAL RESULT: No. COMMUNICATION: The findings were discussed with the patient's family, son Jesus Manuel and daughter Caitlyn, in person after the case. These findings were discussed by executive vice president and chief financial officer Dr. Ramos Wyatt with trauma [facility] ICU member Dr. Shaw at 0755 hours on 10/13/2019. ATTESTATION: Not Applicable. ?? Verified by: DIANDRA BRADEN M.D. on Oct ??2019 ??9:35P Transcribed by: [facility] on Oct ??2019 ??9:35P Dictated by: DIANDRA BRADEN M.D. on Oct ??6 2 020 ??8:24A Procedure Note Diandra Braden - 12/31/2020 REQUESTING PHYSICIAN: DIANDRA BRADEN REASON FOR EXAMINATION/PROCEDURE: * angiographic eval and embolization of left retroperitoneal bleed EXAMINATION / PROCEDURE: ANGIO NOTIFICATION Oct 13 2019:18; LE FT RENAL 2ND ORDER Oct 13 2019:18; Sedation 1st 15 mins >=5yo Oct 13 2019:18; Sedation ea add 15 mins any age Oct 13 2019:18; Sedation ea add 15 mins any age Oct 13 2019:18; Sedation ea add 15 PROCEDURE(S): * ULTRA SOUND GUIDED ACCESS TO THE RIGHT COMMON FEMORAL ARTERY * ANGIOGRAPHY OF THE RIGHT COMMON FEMORAL ARTERY * AORTOGRAM * SELECTIVE ANGIOGRAPHY OF THE SUPEROPOSTERIOR LEFT RENAL ARTERY * SELECTIVE ANGIOGRAPHY OF THE INFEROANTERIOR LEFT RENAL ALVINO RY * SELECTIVE ANGIOGRAPHY OF THE INFEROANTERIOR LEFT RENAL ARTERY INFEROMEDIAL SUBSEGMENTAL BRANCH TO LOWER POLE * SELECTIVE ANGIOGRAPHY OF THE INFEROANTERIOR LEFT RENAL ARTERY INFEROLATERAL SUBSEGMENTAL BRANCH TO LOWER POLE * SELECTIVE ANG IOGRAPHY OF THE INFEROANTERIOR LEFT RENAL ARTERY LATERAL INFERIOR SUBSEGMENTAL BRANCH TO LOWER POLE * SELECTIVE ANGIOGRAPHY OF THE INFEROANTERIOR LEFT RENAL ARTERY LATERAL SUPERIOR SUBSEGMENTAL BRANCH TO LOWER POLE * EMBOLIZATION OF THE INFE ROANTERIOR LEFT RENAL ARTERY INFEROLATERAL SUBSEGMENTAL BRANCH TO LOWER POLE * CLOSURE DEVICE USED AT RIGHT COMMON FEMORAL ARTERY * CONSCIOUS SEDATION CLINICAL HISTORY: IR consulted for left renal active extravasation seen on CTA. Pleasant 69 year old woman with intermittent atrial fibrillation who reports starting Xarelto August 2019 and developing left flank pain a few weeks ago. Her left flank pain became intolerable yesterday; no trauma, but she reports a recent and ongoing UTI as well as exercising on her stationary recumbent bicycle; CTA prior to consult showed the left renal active extravasation. She also has Henoch-Schonlein purpura and mild renal insufficiency. No known history of cancer. LOCAL AREA NETWORK ADMINISTRATOR: Diandra Braden M.D. SECONDARY BULL RIDER: Ramos Wyatt M.D. NURSE: See RN note; Prisca. TECH: See Technologist note; Justin. MEDICATIONS: 1% Lidocaine Subcutaneously. Moderate sedation was performed by a trained interventional radiology nurse un cheryl direct physician supervision with 2.5 mg of Versed and 175 mcg fentanyl IV from 0420 hours to 0710 hours. VTE PROPHYLAXIS: None indicated for this ambulatory procedure. ANTIBIOTIC PROPHYLAXIS: None indicated FLUORO TIME/RADIATION DOSE: 31. 8 minutes, Air Kerma of 6707 [place] [address] uGy-m^2 COMPLICATIONS: None immediately. PATIENT CONDITION: Stable. COMPARISON: 02/04/[address] chest, 10/12/2019 outside CTA abdomen/pelvis TECHNIQUE: The patient was identi fied. After the risks and benefits of the procedure were discussed with the patient, an informed written consent was obtained. The patient was then brought back to interventional suite and placed supine on the table. Appropriate time out was per formed to confirm patient identity and planned procedure. The patient was then prepped and draped in the normal sterile fashion. Strict hand hygiene protocol was observed with the operators doing a surgical hand scrub. All personnel in the renea m were attired in surgical hat and mask. The operators were in surgical hat, mask, sterile gloves and gowns. The sites were prepped with 2% chlorhexidine for cutaneous antisepsis, followed by sterile barrier draping. Conscious sedation was initi ated. AORTOGRAM AND LEFT RENAL ARTERIOGRAPHY AND EMBOLIZATION: The right common femoral artery was accessed with a micropuncture set. A 5 Fr vascular sheath was then placed within the artery. A DSA (Digital Subtraction Angiography) was perfo rmed through the sheath in the common femoral artery. Over an 0.035 in guidewire, a 5 [place] Contra 2 was not successful at selecting the left renal arteries, and so a 5 [place] Omniflush was advanced to T12, above the renal arteries. Aortogram s howed the locations of the two left renal arteries, superoposterior and anteroinferior, and no active extravasation, blush, or pseudoaneurysm was seen. Then, the Omniflush was exchanged for the Contra 2 catheter which was advanced into the lef t superoposterior renal artery; DSA showed no active extravasation, blush, or pseudoaneurysm. After further more peripheral selection of the main branch of the left superoposterior renal artery with the Progreat microcatheter, still no active ex travasation, blush, or pseudoaneurysm was seen. Therefore, the Contra 2 was used to select the left anteroinferior renal artery; DSA showed at least 4-5 sites of active extravasation at the mid to lower renal pole, of varying severity. After p lacement of the Progreat microcatheter more peripherally in the main branch of the left anteroinferior renal artery, it was noted that the greatest extravasation was from the inferoanterior left renal artery inferolateral subsegmental branch to the lower pole, with a bare spot in this region of the lower pole, in keeping with a known renal cyst, which previously measured simple fluid density on 02/04/[address] chest but measured blood density on 10/12/2019 outside CTA abdomen/ pelvis. It was attempted to select this branch with a microcatheter, but first selected was the inferoanterior left renal artery inferomedial subsegmental branch to lower pole; DSA at this branch showed no active extravasation, blush, or pseudoa neurysm at these terminal branches, but did show active extravasation upon reflux into the targeted branch. Next, the targeted branch--the inferoanterior left renal artery inferolateral subsegmental branch to lower pole--was selected, with DSA confirming prompt active extravasation. The vessel was more peripherally selected to spare as much non-target renal parenchyma as possible, and satisfactory position was confirmed on DSA; this branch was embolized to stasis with [place]. Post embo lization DSA of the left anteroinferior renal artery through the Contra 2 demonstrated no active extravasation, blush, or pseudoaneurysm at the target vessel, with slightly enlarged area of parenchymal non-filling defect, in keeping with embol ization of this renal sub-segment. Post-embolization DSA also showed additional 3 areas of slow-flow active extravasation at branches involving about 50% of the left renal parenchyma. Branches supplying the largest of these--the inferoanterior l eft renal artery lateral inferior subsegmental branch to lower pole and the inferoanterior left renal artery lateral superior subsegmental branch to lower pole--were serially selected, but DSA confirmed that the active extravasation was slow-tam w. Given these findings, it was decided that the risk of harm to the [place] renal parenchyma in this patient with existing renal insufficiency exceeded the likely gain from embolization at this time. All catheters were removed. The vascular s cyril was removed. AngioSeal VIP was used for vascular closure with no hematoma. A sterile dressing was placed. The patient tolerated the procedure well, with no immediate complication. The patient was transferred to recovery in stable condit ion. The findings were discussed with the patient's family, son Jesus Manuel and daughter Caitlyn, in person after the case. These findings were discussed by executive vice president and chief financial officer Dr. Ramos Wyatt with trauma surgery ICU member Dr. Shaw at 0755 hours on . FINDINGS: As above. IMPRESSION: 1. Two left renal arteries; active extravasation of varying degree from mid to lower pole multiple branches (4-5) of the anteroinferior left renal artery. 2. Successful angiography and emboliz ation of the site of brisk active extravasation--possibly bleeding into her known left renal cyst--at the inferoanterior left renal artery inferolateral subsegmental branch to lower pole. 3. Other sites of active extravasation were noted to be slow-flow, with the two most suspicious sites interrogated and this finding confirmed on DSA. 4. Given these findings, it was decided that the risk of harm to the [place] renal parenchyma in this patient with existing renal insufficiency exc eeded the likely gain from embolization of multiple sites at thistime. RECOMMENDATIONS: * Given the embolization of the major site of active extravasation (left renal artery, lower pole branch, inferoanterior left renal artery inferolateral subsegmental branch to lower pole) but non-embolization of other sites of slow-flow active extravasation in order to spare renal parenchyma, IR recommendation is to not restart anticoagulation/antiplatelets except under very close monitoring and with a low threshold to discontinue them. * Per her family, the patient's Xarelto is for treating atrial fibrillation which is intermittent. It may be helpful to explore other options for decreasing stroke risk, such as cardiac ablation and/ or left atrial appendage closure. * This patient has a difficult situation. Any future anticoagulation/antiplatelets must be carefully weighed against her bleeding risk--particularly as noted at this left kidney--and potential further loss of renal parenchyma and renal function if additional renal tissue must be sacrificed by embolization. * MRI renal lesion protocol without and with IV contrast, perhaps in a day or two post-procedure, will likely be helpful to assess for any un derlying occult renal mass. * If the patient remains hemodynamically stable, the large perirenal hematoma can be percutaneously drained after about 2-3 weeks to try to aid recovery of the remaining left renal parenchyma, as well as for patient comfort. CRITICAL RESULT: No. COMMUNICATION: The findings were discussed with the patient's family, son Jesus Manuel and daughter Caitlyn, in person after the case. These findings were discussed by executive vice president and chief financial officer Dr. Ramos Wyatt with trauma [facility] ICU member Dr. Shaw at 0755 hours on 10/13/2019. ATTESTATION: Not Applicable. Verified by: DIANDRA BRADEN M.D. on Oct 16 2019 9:35P Transcribed by: [facility] on Oct 16 2019 9:35P Dictated by: DIANDRA BRADEN M.D. on Oct 13 2 020 8:24A us Diandra Braden MD IMG IR PROCEDURES Final R esult * IR VIR HISTORICAL (10/13/2019 7:18 AM EST) Anatomical Region Laterality Modality X-Ray Angiograph y Narrative 10/16/2019 9:36 PM EST REQUESTING PHYSICIAN: DIANDRA BRADEN REASON FOR EXAMINATION/PROCEDURE: ?? * ??angiographic eval and embolization of left retroperitoneal bleed EXAMINATION / PROCEDURE: ANGIO NOTIFICATION Feb ??6 2019:18; LE FT RENAL 2ND ORDER Feb ??6 2019:18; Sedation 1st 15 mins >=5yo Feb ??6 2019:18; Sedation ea add 15 mins any age Feb ??6 2019:18; Sedation ea add 15 mins any age Feb ?? 6 2019:18; Sedation ea add 15 ? PROCEDURE(S): ?? * ??ULTRA SOUND GUIDED ACCESS TO THE RIGHT COMMON FEMORAL ARTERY * ??ANGIOGRAPHY OF THE RIGHT COMMON FEMORAL ARTERY * ??AORTOGRAM * ??SELECTIVE ANGIOGRAPHY OF THE SUPEROPOSTERIOR LEFT RENAL ARTERY * ??SELECTIVE ANGIOGRAPHY OF THE INFEROANTERIOR LEFT RENAL ALVINO RY * ??SELECTIVE ANGIOGRAPHY OF THE INFEROANTERIOR LEFT RENAL ARTERY INFEROMEDIAL SUBSEGMENTAL BRANCH TO LOWER POLE * ??SELECTIVE ANGIOGRAPHY OF THE INFEROANTERIOR LEFT RENAL ARTERY INFEROLATERAL SUBSEGMENTAL BRANCH TO LOWER POLE * ??SELECTIVE ANG IOGRAPHY OF THE INFEROANTERIOR LEFT RENAL ARTERY LATERAL INFERIOR SUBSEGMENTAL BRANCH TO LOWER POLE * ??SELECTIVE ANGIOGRAPHY OF THE INFEROANTERIOR LEFT RENAL ARTERY LATERAL SUPERIOR SUBSEGMENTAL BRANCH TO LOWER POLE * ??EMBOLIZATION OF THE INFE ROANTERIOR LEFT RENAL ARTERY INFEROLATERAL SUBSEGMENTAL BRANCH TO LOWER POLE * ??CLOSURE DEVICE USED AT RIGHT COMMON FEMORAL ARTERY * ??CONSCIOUS SEDATION CLINICAL HISTORY: ??IR consulted for left renal active extravasation seen on CTA. Pleasant ??69 year old woman with intermittent atrial fibrillation who reports starting Xarelto August 2019 and developing left flank pain a few weeks ago. Her left flank pain became intolerable yesterday; no trauma, but she reports a recent and ongoing ??UTI as well as exercising on her stationary recumbent bicycle; CTA prior to consult showed the left renal active extravasation. She also has Henoch-Schonlein purpura and mild renal insufficiency. No known history of cancer. LOCAL AREA NETWORK ADMINISTRATOR: ??Diandra Braden M.D. SECONDARY BULL RIDER: Ramos Wyatt M.D. NURSE: See RN note; Prisca. TECH: See Technologist note; Justin. MEDICATIONS: 1% Lidocaine Subcutaneously. Moderate sedation was performed by a trained interventional radiology nurse un cheryl direct physician supervision with 2.5 mg of Versed and 175 mcg fentanyl IV from 0420 hours to 0710 hours. VTE PROPHYLAXIS: None indicated for this ambulatory procedure. ANTIBIOTIC PROPHYLAXIS: None indicated FLUORO TIME/RADIATION DOSE: 31. 8 minutes, Air Kerma of 6707 [place] [address] uGy-m^2 COMPLICATIONS: ??None immediately. PATIENT CONDITION: ??Stable. COMPARISON: ??02/04/[address] chest, 10/12/2019 outside CTA abdomen/pelvis TECHNIQUE: ?? The patient was identi fied. After the risks and benefits of the procedure were discussed with the patient, an informed written consent was obtained. The patient was then brought back to interventional suite and placed supine on the table. Appropriate time out was per formed to confirm patient identity and planned procedure. The patient was then prepped and draped in the normal sterile fashion. Strict hand hygiene protocol was observed with the operators doing a surgical hand scrub. All personnel in the renea m were attired in surgical hat and mask. The operators were in surgical hat, mask, sterile gloves and gowns. The sites were prepped with 2% chlorhexidine for cutaneous antisepsis, followed by sterile barrier draping. Conscious sedation was initi ated. ?? AORTOGRAM AND LEFT RENAL ARTERIOGRAPHY AND EMBOLIZATION: The right common femoral artery was accessed with a micropuncture set. A 5 Fr vascular sheath was then placed within the artery. A DSA (Digital Subtraction Angiography) was perfo rmed through the sheath in the common femoral artery. Over an 0.035 in guidewire, a 5 [place] Contra 2 was not successful at selecting the left renal arteries, and so a 5 [place] Omniflush was advanced to T12, above the renal arteries. Aortogram s howed the locations of the two left renal arteries, superoposterior and anteroinferior, and no active extravasation, blush, or pseudoaneurysm was seen. Then, the Omniflush was exchanged for the Contra 2 catheter which was advanced into the lef t superoposterior renal artery; DSA showed no active extravasation, blush, or pseudoaneurysm. After further more peripheral selection of the main branch of the left superoposterior renal artery with the Progreat microcatheter, still no active ex travasation, blush, or pseudoaneurysm was seen. Therefore, the Contra 2 was used to select the left anteroinferior renal artery; DSA showed at least 4-5 sites of active extravasation at the mid to lower renal pole, of varying severity. After p lacement of the Progreat microcatheter more peripherally in the main branch of the left anteroinferior renal artery, it was noted that the greatest extravasation was from the inferoanterior left renal artery inferolateral subsegmental branch to the lower pole, with a bare spot in this region of the lower pole, in keeping with a known renal cyst, which previously measured simple fluid density on 02/04/[address] chest but measured blood density on 10/12/2019 outside CTA abdomen/ pelvis. It was attempted to select this branch with a microcatheter, but first selected was the inferoanterior left renal artery inferomedial subsegmental branch to lower pole; DSA at this branch showed no active extravasation, blush, or pseudoa neurysm at these terminal branches, but did show active extravasation upon reflux into the targeted branch. Next, the targeted branch--the inferoanterior left renal artery inferolateral subsegmental branch to lower pole--was selected, with DSA ??confirming prompt active extravasation. The vessel was more peripherally selected to spare as much non-target renal parenchyma as possible, and satisfactory position was confirmed on DSA; this branch was embolized to stasis with [place]. Post embo lization DSA of the left anteroinferior renal artery through the Contra 2 demonstrated no active extravasation, blush, or pseudoaneurysm at the target vessel, with slightly enlarged area of parenchymal non-filling defect, in keeping with embol ization of this renal sub-segment. Post-embolization DSA also showed additional 3 areas of slow-flow active extravasation at branches involving about 50% of the left renal parenchyma. Branches supplying the largest of these--the inferoanterior l eft renal artery lateral inferior subsegmental branch to lower pole and the inferoanterior left renal artery lateral superior subsegmental branch to lower pole--were serially selected, but DSA confirmed that the active extravasation was slow-tam w. Given these findings, it was decided that the risk of harm to the [place] renal parenchyma in this patient with existing renal insufficiency exceeded the likely gain from embolization at this time. All catheters were removed. The vascular s cyril was removed. AngioSeal VIP was used for vascular closure with no hematoma. A sterile dressing was placed. The patient tolerated the procedure well, with no immediate complication. The patient was transferred to recovery in stable condit ion. The findings were discussed with the patient's family, son Jesus Manuel and daughter Caitlyn, in person after the case. These findings were discussed by executive vice president and chief financial officer Dr. Ramos Wyatt with trauma surgery ICU member Dr. Shaw at 0755 hours on . FINDINGS: As above. ?? IMPRESSION: 1. ??Two left renal arteries; active extravasation of varying degree from mid to lower pole multiple branches (4-5) of the anteroinferior left renal artery. 2. ??Successful angiography and emboliz ation of the site of brisk active extravasation--possibly bleeding into her known left renal cyst--at the inferoanterior left renal artery inferolateral subsegmental branch to lower pole. 3. ??Other sites of active extravasation were noted to be ??slow-flow, with the two most suspicious sites interrogated and this finding confirmed on DSA. 4. ??Given these findings, it was decided that the risk of harm to the [place] renal parenchyma in this patient with existing renal insufficiency exc eeded the likely gain from embolization of multiple sites at this time. RECOMMENDATIONS: * ??Given the embolization of the major site of active extravasation (left renal artery, lower pole branch, inferoanterior left renal artery inferolateral subsegmental branch to lower pole) but non-embolization of other sites of slow-flow active extravasation in order to spare renal parenchyma, IR recommendation is to not restart anticoagulation/antiplatelets except under very close monitoring and ??with a low threshold to discontinue them. * ??Per her family, the patient's Xarelto is for treating atrial fibrillation which is intermittent. It may be helpful to explore other options for decreasing stroke risk, such as cardiac ablation and/ or left atrial appendage closure. * ??This patient has a difficult situation. Any future anticoagulation/antiplatelets must be carefully weighed against her bleeding risk--particularly as noted at this left kidney--and potential further loss of renal parenchyma and renal function if additional renal tissue must be sacrificed by embolization. * ??MRI renal lesion protocol without and with IV contrast, perhaps in a day or two post-procedure, will likely be helpful to assess for any un derlying occult renal mass. * ??If the patient remains hemodynamically stable, the large perirenal hematoma can be percutaneously drained after about 2-3 weeks to try to aid recovery of the remaining left renal parenchyma, as well as for patient ??comfort. CRITICAL RESULT: No. COMMUNICATION: The findings were discussed with the patient's family, son Jesus Manuel and daughter Caitlyn, in person after the case. These findings were discussed by executive vice president and chief financial officer Dr. Ramos Wyatt with trauma [facility] ICU member Dr. Shaw at 0755 hours on 10/13/2019. ATTESTATION: Not Applicable. ?? Verified by: DIANDRA BRADEN M.D. on Oct ??9 2019 ??9:35P Transcribed by: [facility] on Oct ??9 2019 ??9:35P Dictated by: DIANDRA BRADEN M.D. on Oct ??6 2 020 ??8:24A Procedure Note Diandra Braden - 12/31/2020 REQUESTING PHYSICIAN: DIANDRA BRADEN REASON FOR EXAMINATION/PROCEDURE: * angiographic eval and embolization of left retroperitoneal bleed EXAMINATION / PROCEDURE: ANGIO NOTIFICATION Oct 13 2019:18; LE FT RENAL 2ND ORDER Oct 13 2019:18; Sedation 1st 15 mins >=5yo Oct 13 2019:18; Sedation ea add 15 mins any age Oct 13 2019:18; Sedation ea add 15 mins any age Oct 13 2019:18; Sedation ea add 15 PROCEDURE(S): * ULTRA SOUND GUIDED ACCESS TO THE RIGHT COMMON FEMORAL ARTERY * ANGIOGRAPHY OF THE RIGHT COMMON FEMORAL ARTERY * AORTOGRAM * SELECTIVE ANGIOGRAPHY OF THE SUPEROPOSTERIOR LEFT RENAL ARTERY * SELECTIVE ANGIOGRAPHY OF THE INFEROANTERIOR LEFT RENAL [place]VINO RY * SELECTIVE ANGIOGRAPHY OF THE INFEROANTERIOR LEFT RENAL ARTERY INFEROMEDIAL SUBSEGMENTAL BRANCH TO LOWER POLE * SELECTIVE ANGIOGRAPHY OF THE INFEROANTERIOR LEFT RENAL ARTERY INFEROLATERAL SUBSEGMENTAL BRANCH TO LOWER POLE * SELECTIVE ANG IOGRAPHY OF THE INFEROANTERIOR LEFT RENAL ARTERY LATERAL INFERIOR SUBSEGMENTAL BRANCH TO LOWER POLE * SELECTIVE ANGIOGRAPHY OF THE INFEROANTERIOR LEFT RENAL ARTERY LATERAL SUPERIOR SUBSEGMENTAL BRANCH TO LOWER POLE * EMBOLIZATION OF THE INFE ROANTERIOR LEFT RENAL ARTERY INFEROLATERAL SUBSEGMENTAL BRANCH TO LOWER POLE * CLOSURE DEVICE USED AT RIGHT COMMON FEMORAL ARTERY * CONSCIOUS SEDATION CLINICAL HISTORY: IR consulted for left renal active extravasation seen on CTA. Pleasant 69 year old woman with intermittent atrial fibrillation who reports starting Xarelto August 2019 and developing left flank pain a few weeks ago. Her left flank pain became intolerable yesterday; no trauma, but she reports a recent and ongoing UTI as well as exercising on her stationary recumbent bicycle; CTA prior to consult showed the left renal active extravasation. She also has Henoch-Schonlein purpura and mild renal insufficiency. No known history of cancer. LOCAL AREA NETWORK ADMINISTRATOR: Diandra Braden M.D. SECONDARY BULL RIDER: Ramos Wyatt M.D. NURSE: See RN note; Prisca. TECH: See Technologist note; Justin. MEDICATIONS: 1% Lidocaine Subcutaneously. Moderate sedation was performed by a trained interventional radiology nurse un cheryl direct physician supervision with 2.5 mg of Versed and 175 mcg fentanyl IV from 0420 hours to 0710 hours. VTE PROPHYLAXIS: None indicated for this ambulatory procedure. ANTIBIOTIC PROPHYLAXIS: None indicated FLUORO TIME/RADIATION DOSE: 31. 8 minutes, Air Kerma of 6707 [place]Gy[place] [address] uGy-m^2 COMPLICATIONS: None immediately. PATIENT CONDITION: Stable. COMPARISON: 02/04/[address] chest, 10/12/2019 outside CTA abdomen/pelvis TECHNIQUE: The patient was identi fied. After the risks and benefits of the procedure were discussed with the patient, an informed written consent was obtained. The patient was then brought back to interventional suite and placed supine on the table. Appropriate time out was per formed to confirm patient identity and planned procedure. The patient was then prepped and draped in the normal sterile fashion. Strict hand hygiene protocol was observed with the operators doing a surgical hand scrub. All personnel in the renea were attired in surgical hat and mask. The operators were in surgical hat, mask, sterile gloves and gowns. The sites were prepped with 2% chlorhexidine for cutaneous antisepsis, followed by sterile barrier draping. Conscious sedation was initi ated. AORTOGRAM AND LEFT RENAL ARTERIOGRAPHY AND EMBOLIZATION: The right common femoral artery was accessed with a micropuncture set. A 5 Fr vascular sheath was then placed within the artery. A DSA (Digital Subtraction Angiography) was perfo rmed through the sheath in the common femoral artery. Over an 0.035 in guidewire, a 5 [place] Contra 2 was not successful at selecting the left renal arteries, and so a 5 [place] Omniflush was advanced to T12, above the renal arteries. Aortogram s howed the locations of the two left renal arteries, superoposterior and anteroinferior, and no active extravasation, blush, or pseudoaneurysm was seen. Then, the Omniflush was exchanged for the Contra 2 catheter which was advanced into the lef t superoposterior renal artery; DSA showed no active extravasation, blush, or pseudoaneurysm. After further more peripheral selection of the main branch of the left superoposterior renal artery with the Progreat microcatheter, still no active ex travasation, blush, or pseudoaneurysm was seen. Therefore, the Contra 2 was used to select the left anteroinferior renal artery; DSA showed at least 4-5 sites of active extravasation at the mid to lower renal pole, of varying severity. After p lacement of the Progreat microcatheter more peripherally in the main branch of the left anteroinferior renal artery, it was noted that the greatest extravasation was from the inferoanterior left renal artery inferolateral subsegmental branch to the lower pole, with a bare spot in this region of the lower pole, in keeping with a known renal cyst, which previously measured simple fluid density on 02/04/[address] chest but measured blood density on 10/12/2019 outside CTA abdomen/ pelvis. It was attempted to select this branch with a microcatheter, but first selected was the inferoanterior left renal artery inferomedial subsegmental branch to lower pole; DSA at this branch showed no active extravasation, blush, or pseudoa neurysm at these terminal branches, but did show active extravasation upon reflux into the targeted branch. Next, the targeted branch--the inferoanterior left renal artery inferolateral subsegmental branch to lower pole--was selected, with DSA confirming prompt active extravasation. The vessel was more peripherally selected to spare as much non-target renal parenchyma as possible, and satisfactory position was confirmed on DSA; this branch was embolized to stasis with [place]. Post embo lization DSA of the left anteroinferior renal artery through the Contra 2 demonstrated no active extravasation, blush, or pseudoaneurysm at the target vessel, with slightly enlarged area of parenchymal non-filling defect, in keeping with embol ization of this renal sub-segment. Post-embolization DSA also showed additional 3 areas of slow-flow active extravasation at branches involving about 50% of the left renal parenchyma. Branches supplying the largest of these--the inferoanterior l eft renal artery lateral inferior subsegmental branch to lower pole and the inferoanterior left renal artery lateral superior subsegmental branch to lower pole--were serially selected, but DSA confirmed that the active extravasation was slow-tam w. Given these findings, it was decided that the risk of harm to the [place] renal parenchyma in this patient with existing renal insufficiency exceeded the likely gain from embolization at this time. All catheters were removed. The vascular s cyril was removed. AngioSeal VIP was used for vascular closure with no hematoma. A sterile dressing was placed. The patient tolerated the procedure well, with no immediate complication. The patient was transferred to recovery in stable condit ion. The findings were discussed with the patient's family, son Jesus Manuel and daughter Caitlyn, in person after the case. These findings were discussed by executive vice president and chief financial officer Dr. Ramos Wyatt with trauma surgery ICU member Dr. Shaw at 0755 hours on . FINDINGS: As above. IMPRESSION: 1. Two left renal arteries; active extravasation of varying degree from mid to lower pole multiple branches (4-5) of the anteroinferior left renal artery. 2. Successful angiography and emboliz ation of the site of brisk active extravasation--possibly bleeding into her known left renal cyst--at the inferoanterior left renal artery inferolateral subsegmental branch to lower pole. 3. Other sites of active extravasation were noted to be slow-flow, with the two most suspicious sites interrogated and this finding confirmed on DSA. 4. Given these findings, it was decided that the risk of harm to the [place] renal parenchyma in this patient with existing renal insufficiency exc eeded the likely gain from embolization of multiple sites at thistime. RECOMMENDATIONS: * Given the embolization of the major site of active extravasation (left renal artery, lower pole branch, inferoanterior left renal artery inferolateral subsegmental branch to lower pole) but non-embolization of other sites of slow-flow active extravasation in order to spare renal parenchyma, IR recommendation is to not restart anticoagulation/antiplatelets except under very close monitoring and with a low threshold to discontinue them. * Per her family, the patient's Xarelto is for treating atrial fibrillation which is intermittent. It may be helpful to explore other options for decreasing stroke risk, such as cardiac ablation and/ or left atrial appendage closure. * This patient has a difficult situation. Any future anticoagulation/antiplatelets must be carefully weighed against her bleeding risk--particularly as noted at this left kidney--and potential further loss of renal parenchyma and renal function if additional renal tissue must be sacrificed by embolization. * MRI renal lesion protocol without and with IV contrast, perhaps in a day or two post-procedure, will likely be helpful to assess for any un derlying occult renal mass. * If the patient remains hemodynamically stable, the large perirenal hematoma can be percutaneously drained after about 2-3 weeks to try to aid recovery of the remaining left renal parenchyma, as well as for patient comfort. CRITICAL RESULT: No. COMMUNICATION: The findings were discussed with the patient's family, son Jesus Manuel and daughter Caitlyn, in person after the case. These findings were discussed by executive vice president and chief financial officer Dr. Ramos Wyatt with trauma [facility] ICU member Dr. Shaw at 0755 hours on 10/13/2019. ATTESTATION: Not Applicable. Verified by: DIANDRA BRADEN M.D. on Oct 16 2019 9:35P Transcribed by: PUMA on Oct 16 2019 9:35P Dictated by: DIANDRA BRADEN M.D. on Oct 13 2 020 8:24A us Diandra Braden MD IMG IR PROCEDURES Final R esult * IR VIR HISTORICAL (10/13/2019 7:18 AM EST) Anatomical Region Laterality Modality X-Ray Angiograph y Narrative 10/16/2019 9:36 PM EST REQUESTING PHYSICIAN: DIANDRA BRADEN REASON FOR EXAMINATION/PROCEDURE: ?? * ??angiographic eval and embolization of left retroperitoneal bleed EXAMINATION / PROCEDURE: ANGIO NOTIFICATION Feb ??6 201918; LE FT RENAL 2ND ORDER Feb ??6 201918; Sedation 1st 15 mins >=5yo Feb ??6 201918; Sedation ea add 15 mins any age Feb ??6 201918; Sedation ea add 15 mins any age Feb ?? 6 201918; Sedation ea add 15 ? PROCEDURE(S): ?? * ??ULTRA SOUND GUIDED ACCESS TO THE RIGHT COMMON FEMORAL ARTERY * ??ANGIOGRAPHY OF THE RIGHT COMMON FEMORAL ARTERY * ??AORTOGRAM * ??SELECTIVE ANGIOGRAPHY OF THE SUPEROPOSTERIOR LEFT RENAL ARTERY * ??SELECTIVE ANGIOGRAPHY OF THE INFEROANTERIOR LEFT RENAL [place] RY * ??SELECTIVE ANGIOGRAPHY OF THE INFEROANTERIOR LEFT RENAL ARTERY INFEROMEDIAL SUBSEGMENTAL BRANCH TO LOWER POLE * ??SELECTIVE ANGIOGRAPHY OF THE INFEROANTERIOR LEFT RENAL ARTERY INFEROLATERAL SUBSEGMENTAL BRANCH TO LOWER POLE * ??SELECTIVE ANG IOGRAPHY OF THE INFEROANTERIOR LEFT RENAL ARTERY LATERAL INFERIOR SUBSEGMENTAL BRANCH TO LOWER POLE * ??SELECTIVE ANGIOGRAPHY OF THE INFEROANTERIOR LEFT RENAL ARTERY LATERAL SUPERIOR SUBSEGMENTAL BRANCH TO LOWER POLE * ??EMBOLIZATION OF THE INFE ROANTERIOR LEFT RENAL ARTERY INFEROLATERAL SUBSEGMENTAL BRANCH TO LOWER POLE * ??CLOSURE DEVICE USED AT RIGHT COMMON FEMORAL ARTERY * ??CONSCIOUS SEDATION CLINICAL HISTORY: ??IR consulted for left renal active extravasation seen on CTA. Pleasant ??69 year old woman with intermittent atrial fibrillation who reports starting Xarelto August 2019 and developing left flank pain a few weeks ago. Her left flank pain became intolerable yesterday; no trauma, but she reports a recent and ongoing ??UTI as well as exercising on her stationary recumbent bicycle; CTA prior to consult showed the left renal active extravasation. She also has Henoch-Schonlein purpura and mild renal insufficiency. No known history of cancer. LOCAL AREA NETWORK ADMINISTRATOR: ??Diandra Braden M.D. SECONDARY BULL RIDER: Ramos Wyatt M.D. NURSE: See RN note; Prisca. TECH: See Technologist note; Justin. MEDICATIONS: 1% Lidocaine Subcutaneously. Moderate sedation was performed by a trained interventional radiology nurse un cheryl direct physician supervision with 2.5 mg of Versed and 175 mcg fentanyl IV from 0420 hours to 0710 hours. VTE PROPHYLAXIS: None indicated for this ambulatory procedure. ANTIBIOTIC PROPHYLAXIS: None indicated FLUORO TIME/RADIATION DOSE: 31. 8 minutes, Air Kerma of 6707 [place] [address] uGy-m^2 COMPLICATIONS: ??None immediately. PATIENT CONDITION: ??Stable. COMPARISON: ??02/04/[address] chest, 10/12/2019 outside CTA abdomen/pelvis TECHNIQUE: ?? The patient was identi fied. After the risks and benefits of the procedure were discussed with the patient, an informed written consent was obtained. The patient was then brought back to interventional suite and placed supine on the table. Appropriate time out was per formed to confirm patient identity and planned procedure. The patient was then prepped and draped in the normal sterile fashion. Strict hand hygiene protocol was observed with the operators doing a surgical hand scrub. All personnel in the renea m were attired in surgical hat and mask. The operators were in surgical hat, mask, sterile gloves and gowns. The sites were prepped with 2% chlorhexidine for cutaneous antisepsis, followed by sterile barrier draping. Conscious sedation was initi ated. ?? AORTOGRAM AND LEFT RENAL ARTERIOGRAPHY AND EMBOLIZATION: The right common femoral artery was accessed with a micropuncture set. A 5 Fr vascular sheath was then placed within the artery. A DSA (Digital Subtraction Angiography) was perfo rmed through the sheath in the common femoral artery. Over an 0.035 in guidewire, a 5 [place] Contra 2 was not successful at selecting the left renal arteries, and so a 5 [place] Omniflush was advanced to T12, above the renal arteries. Aortogram s howed the locations of the two left renal arteries, superoposterior and anteroinferior, and no active extravasation, blush, or pseudoaneurysm was seen. Then, the Omniflush was exchanged for the Contra 2 catheter which was advanced into the lef t superoposterior renal artery; DSA showed no active extravasation, blush, or pseudoaneurysm. After further more peripheral selection of the main branch of the left superoposterior renal artery with the Progreat microcatheter, still no active ex travasation, blush, or pseudoaneurysm was seen. Therefore, the Contra 2 was used to select the left anteroinferior renal artery; DSA showed at least 4-5 sites of active extravasation at the mid to lower renal pole, of varying severity. After p lacement of the Progreat microcatheter more peripherally in the main branch of the left anteroinferior renal artery, it was noted that the greatest extravasation was from the inferoanterior left renal artery inferolateral subsegmental branch to the lower pole, with a bare spot in this region of the lower pole, in keeping with a known renal cyst, which previously measured simple fluid density on 02/04/[address] chest but measured blood density on 10/12/2019 outside CTA abdomen/ pelvis. It was attempted to select this branch with a microcatheter, but first selected was the inferoanterior left renal artery inferomedial subsegmental branch to lower pole; DSA at this branch showed no active extravasation, blush, or pseudoa neurysm at these terminal branches, but did show active extravasation upon reflux into the targeted branch. Next, the targeted branch--the inferoanterior left renal artery inferolateral subsegmental branch to lower pole--was selected, with DSA ??confirming prompt active extravasation. The vessel was more peripherally selected to spare as much non-target renal parenchyma as possible, and satisfactory position was confirmed on DSA; this branch was embolized to stasis with [place]. Post embo lization DSA of the left anteroinferior renal artery through the Contra 2 demonstrated no active extravasation, blush, or pseudoaneurysm at the target vessel, with slightly enlarged area of parenchymal non-filling defect, in keeping with embol ization of this renal sub-segment. Post-embolization DSA also showed additional 3 areas of slow-flow active extravasation at branches involving about 50% of the left renal parenchyma. Branches supplying the largest of these--the inferoanterior l eft renal artery lateral inferior subsegmental branch to lower pole and the inferoanterior left renal artery lateral superior subsegmental branch to lower pole--were serially selected, but DSA confirmed that the active extravasation was slow-tam w. Given these findings, it was decided that the risk of harm to the [place] renal parenchyma in this patient with existing renal insufficiency exceeded the likely gain from embolization at this time. All catheters were removed. The vascular s cyril was removed. AngioSeal VIP was used for vascular closure with no hematoma. A sterile dressing was placed. The patient tolerated the procedure well, with no immediate complication. The patient was transferred to recovery in stable condit ion. The findings were discussed with the patient's family, son Jesus Manuel and daughter Caitlyn, in person after the case. These findings were discussed by executive vice president and chief financial officer Dr. Ramos Wyatt with trauma surgery ICU member Dr. Shaw at 0755 hours on . FINDINGS: As above. ?? IMPRESSION: 1. ??Two left renal arteries; active extravasation of varying degree from mid to lower pole multiple branches (4-5) of the anteroinferior left renal artery. 2. ??Successful angiography and emboliz ation of the site of brisk active extravasation--possibly bleeding into her known left renal cyst--at the inferoanterior left renal artery inferolateral subsegmental branch to lower pole. 3. ??Other sites of active extravasation were noted to be ??slow-flow, with the two most suspicious sites interrogated and this finding confirmed on DSA. 4. ??Given these findings, it was decided that the risk of harm to the [place] renal parenchyma in this patient with existing renal insufficiency exc eeded the likely gain from embolization of multiple sites at this time. RECOMMENDATIONS: * ??Given the embolization of the major site of active extravasation (left renal artery, lower pole branch, inferoanterior left renal artery inferolateral subsegmental branch to lower pole) but non-embolization of other sites of slow-flow active extravasation in order to spare renal parenchyma, IR recommendation is to not restart anticoagulation/antiplatelets except under very close monitoring and ??with a low threshold to discontinue them. * ??Per her family, the patient's Xarelto is for treating atrial fibrillation which is intermittent. It may be helpful to explore other options for decreasing stroke risk, such as cardiac ablation and/ or left atrial appendage closure. * ??This patient has a difficult situation. Any future anticoagulation/antiplatelets must be carefully weighed against her bleeding risk--particularly as noted at this left kidney--and potential further loss of renal parenchyma and renal function if additional renal tissue must be sacrificed by embolization. * ??MRI renal lesion protocol without and with IV contrast, perhaps in a day or two post-procedure, will likely be helpful to assess for any un derlying occult renal mass. * ??If the patient remains hemodynamically stable, the large perirenal hematoma can be percutaneously drained after about 2-3 weeks to try to aid recovery of the remaining left renal parenchyma, as well as for patient ??comfort. CRITICAL RESULT: No. COMMUNICATION: The findings were discussed with the patient's family, son Jesus Manuel and daughter Caitlyn, in person after the case. These findings were discussed by executive vice president and chief financial officer Dr. Ramos Wyatt with trauma [facility] ICU member Dr. Shaw at 0755 hours on 10/13/2019. ATTESTATION: Not Applicable. ?? Verified by: DIANDRA BRADEN M.D. on Oct ??2019 ??9:35P Transcribed by: PSCB on Oct ??2019 ??9:35P Dictated by: DIANDRA BRADEN M.D. on Oct ??6 2 020 ??8:24A Procedure Note Diandra Braden - 12/31/2020 REQUESTING PHYSICIAN: DIANDRA BRADEN REASON FOR EXAMINATION/PROCEDURE: * angiographic eval and embolization of left retroperitoneal bleed EXAMINATION / PROCEDURE: ANGIO NOTIFICATION Oct 13 2019:18; LE FT RENAL 2ND ORDER Oct 13 2019:18; Sedation 1st 15 mins >=5yo Oct 13 201918; Sedation ea add 15 mins any age Oct 13 201918; Sedation ea add 15 mins any age Oct 13 201918; Sedation ea add 15 PROCEDURE(S): * ULTRA SOUND GUIDED ACCESS TO THE RIGHT COMMON FEMORAL ARTERY * ANGIOGRAPHY OF THE RIGHT COMMON FEMORAL ARTERY * AORTOGRAM * SELECTIVE ANGIOGRAPHY OF THE SUPEROPOSTERIOR LEFT RENAL ARTERY * SELECTIVE ANGIOGRAPHY OF THE INFEROANTERIOR LEFT RENAL [place] RY * SELECTIVE ANGIOGRAPHY OF THE INFEROANTERIOR LEFT RENAL ARTERY INFEROMEDIAL SUBSEGMENTAL BRANCH TO LOWER POLE * SELECTIVE ANGIOGRAPHY OF THE INFEROANTERIOR LEFT RENAL ARTERY INFEROLATERAL SUBSEGMENTAL BRANCH TO LOWER POLE * SELECTIVE ANG IOGRAPHY OF THE INFEROANTERIOR LEFT RENAL ARTERY LATERAL INFERIOR SUBSEGMENTAL BRANCH TO LOWER POLE * SELECTIVE ANGIOGRAPHY OF THE INFEROANTERIOR LEFT RENAL ARTERY LATERAL SUPERIOR SUBSEGMENTAL BRANCH TO LOWER POLE * EMBOLIZATION OF THE INFE ROANTERIOR LEFT RENAL ARTERY INFEROLATERAL SUBSEGMENTAL BRANCH TO LOWER POLE * CLOSURE DEVICE USED AT RIGHT COMMON FEMORAL ARTERY * CONSCIOUS SEDATION CLINICAL HISTORY: IR consulted for left renal active extravasation seen on CTA. Pleasant 69 year old woman with intermittent atrial fibrillation who reports starting Xarelto August 2019 and developing left flank pain a few weeks ago. Her left flank pain became intolerable yesterday; no trauma, but she reports a recent and ongoing UTI as well as exercising on her stationary recumbent bicycle; CTA prior to consult showed the left renal active extravasation. She also has Henoch-Schonlein purpura and mild renal insufficiency. No known history of cancer. LOCAL AREA NETWORK ADMINISTRATOR: Diandra Braden M.D. SECONDARY BULL RIDER: Ramos Wyatt M.D. NURSE: See RN note; Prisca. TECH: See Technologist note; Justin. MEDICATIONS: 1% Lidocaine Subcutaneously. Moderate sedation was performed by a trained interventional radiology nurse un cheryl direct physician supervision with 2.5 mg of Versed and 175 mcg fentanyl IV from 0420 hours to 0710 hours. VTE PROPHYLAXIS: None indicated for this ambulatory procedure. ANTIBIOTIC PROPHYLAXIS: None indicated FLUORO TIME/RADIATION DOSE: 31. 8 minutes, Air Kerma of 6707 mGy, [place] [address] uGy-m^2 COMPLICATIONS: None immediately. PATIENT CONDITION: Stable. COMPARISON: 02/04/[address] chest, 10/12/2019 outside CTA abdomen/pelvis TECHNIQUE: The patient was identi fied. After the risks and benefits of the procedure were discussed with the patient, an informed written consent was obtained. The patient was then brought back to interventional suite and placed supine on the table. Appropriate time out was per formed to confirm patient identity and planned procedure. The patient was then prepped and draped in the normal sterile fashion. Strict hand hygiene protocol was observed with the operators doing a surgical hand scrub. All personnel in the renea m were attired in surgical hat and mask. The operators were in surgical hat, mask, sterile gloves and gowns. The sites were prepped with 2% chlorhexidine for cutaneous antisepsis, followed by sterile barrier draping. Conscious sedation was initi ated. AORTOGRAM AND LEFT RENAL ARTERIOGRAPHY AND EMBOLIZATION: The right common femoral artery was accessed with a micropuncture set. A 5 Fr vascular sheath was then placed within the artery. A DSA (Digital Subtraction Angiography) was perfo rmed through the sheath in the common femoral artery. Over an 0.035 in guidewire, a 5 [place] Contra 2 was not successful at selecting the left renal arteries, and so a 5 [place] Omniflush was advanced to T12, above the renal arteries. Aortogram s howed the locations of the two left renal arteries, superoposterior and anteroinferior, and no active extravasation, blush, or pseudoaneurysm was seen. Then, the Omniflush was exchanged for the Contra 2 catheter which was advanced into the lef t superoposterior renal artery; DSA showed no active extravasation, blush, or pseudoaneurysm. After further more peripheral selection of the main branch of the left superoposterior renal artery with the Progreat microcatheter, still no active ex travasation, blush, or pseudoaneurysm was seen. Therefore, the Contra 2 was used to select the left anteroinferior renal artery; DSA showed at least 4-5 sites of active extravasation at the mid to lower renal pole, of varying severity. After p lacement of the Progreat microcatheter more peripherally in the main branch of the left anteroinferior renal artery, it was noted that the greatest extravasation was from the inferoanterior left renal artery inferolateral subsegmental branch to the lower pole, with a bare spot in this region of the lower pole, in keeping with a known renal cyst, which previously measured simple fluid density on 02/04/[address] chest but measured blood density on 10/12/2019 outside CTA abdomen/ pelvis. It was attempted to select this branch with a microcatheter, but first selected was the inferoanterior left renal artery inferomedial subsegmental branch to lower pole; DSA at this branch showed no active extravasation, blush, or pseudoa neurysm at these terminal branches, but did show active extravasation upon reflux into the targeted branch. Next, the targeted branch--the inferoanterior left renal artery inferolateral subsegmental branch to lower pole--was selected, with DSA confirming prompt active extravasation. The vessel was more peripherally selected to spare as much non-target renal parenchyma as possible, and satisfactory position was confirmed on DSA; this branch was embolized to stasis with [place]. Post embo lization DSA of the left anteroinferior renal artery through the Contra 2 demonstrated no active extravasation, blush, or pseudoaneurysm at the target vessel, with slightly enlarged area of parenchymal non-filling defect, in keeping with embol ization of this renal sub-segment. Post-embolization DSA also showed additional 3 areas of slow-flow active extravasation at branches involving about 50% of the left renal parenchyma. Branches supplying the largest of these--the inferoanterior l eft renal artery lateral inferior subsegmental branch to lower pole and the inferoanterior left renal artery lateral superior subsegmental branch to lower pole--were serially selected, but DSA confirmed that the active extravasation was slow-tam w. Given these findings, it was decided that the risk of harm to the [place] renal parenchyma in this patient with existing renal insufficiency exceeded the likely gain from embolization at this time. All catheters were removed. The vascular s cyril was removed. AngioSeal VIP was used for vascular closure with no hematoma. A sterile dressing was placed. The patient tolerated the procedure well, with no immediate complication. The patient was transferred to recovery in stable condit ion. The findings were discussed with the patient's family, son Jesus Manuel and daughter Caitlyn, in person after the case. These findings were discussed by executive vice president and chief financial officer Dr. Ramos Wyatt with trauma surgery ICU member Dr. Shaw at 0755 hours on . FINDINGS: As above. IMPRESSION: 1. Two left renal arteries; active extravasation of varying degree from mid to lower pole multiple branches (4-5) of the anteroinferior left renal artery. 2. Successful angiography and emboliz ation of the site of brisk active extravasation--possibly bleeding into her known left renal cyst--at the inferoanterior left renal artery inferolateral subsegmental branch to lower pole. 3. Other sites of active extravasation were noted to be slow-flow, with the two most suspicious sites interrogated and this finding confirmed on DSA. 4. Given these findings, it was decided that the risk of harm to the [place] renal parenchyma in this patient with existing renal insufficiency exc eeded the likely gain from embolization of multiple sites at thistime. RECOMMENDATIONS: * Given the embolization of the major site of active extravasation (left renal artery, lower pole branch, inferoanterior left renal artery inferolateral subsegmental branch to lower pole) but non-embolization of other sites of slow-flow active extravasation in order to spare renal parenchyma, IR recommendation is to not restart anticoagulation/antiplatelets except under very close monitoring and with a low threshold to discontinue them. * Per her family, the patient's Xarelto is for treating atrial fibrillation which is intermittent. It may be helpful to explore other options for decreasing stroke risk, such as cardiac ablation and/ or left atrial appendage closure. * This patient has a difficult situation. Any future anticoagulation/antiplatelets must be carefully weighed against her bleeding risk--particularly as noted at this left kidney--and potential further loss of renal parenchyma and renal function if additional renal tissue must be sacrificed by embolization. * MRI renal lesion protocol without and with IV contrast, perhaps in a day or two post-procedure, will likely be helpful to assess for any un derlying occult renal mass. * If the patient remains hemodynamically stable, the large perirenal hematoma can be percutaneously drained after about 2-3 weeks to try to aid recovery of the remaining left renal parenchyma, as well as for patient comfort. CRITICAL RESULT: No. COMMUNICATION: The findings were discussed with the patient's family, son Jesus Manuel and daughter Caitlyn, in person after the case. These findings were discussed by executive vice president and chief financial officer Dr. Ramos Wyatt with trauma [facility] ICU member Dr. Shaw at 0755 hours on 10/13/2019. ATTESTATION: Not Applicable. Verified by: DIANDRA BRADEN M.D. on Oct 16 2019 9:35P Transcribed by: PSCB on Oct 16 2019 9:35P Dictated by: DIANDRA BRADEN M.D. on Oct 13 2 020 8:24A Diandra Braden MD [facility] [place] IR PROCEDURES Final R esult * IR VIR HISTORICAL (10/13/2019 7:18 AM EST) Anatomical Region Laterality Modality X-Ray Angiograph y Narrative 10/16/2019 9:36 PM EST REQUESTING PHYSICIAN: DIANDRA BRADEN REASON FOR EXAMINATION/PROCEDURE: ?? * ??angiographic eval and embolization of left retroperitoneal bleed EXAMINATION / PROCEDURE: ANGIO NOTIFICATION Feb ??6 2019:18; LE FT RENAL 2ND ORDER Feb ??6 2019:18; Sedation 1st 15 mins >=5yo Feb ??6 2019:18; Sedation ea add 15 mins any age Feb ??6 2019:18; Sedation ea add 15 mins any age Feb ?? 6 2019:18; Sedation ea add 15 ? PROCEDURE(S): ?? * ??ULTRA SOUND GUIDED ACCESS TO THE RIGHT COMMON FEMORAL ARTERY * ??ANGIOGRAPHY OF THE RIGHT COMMON FEMORAL ARTERY * ??AORTOGRAM * ??SELECTIVE ANGIOGRAPHY OF THE SUPEROPOSTERIOR LEFT RENAL ARTERY * ??SELECTIVE ANGIOGRAPHY OF THE INFEROANTERIOR LEFT RENAL [place] RY * ??SELECTIVE ANGIOGRAPHY OF THE INFEROANTERIOR LEFT RENAL ARTERY INFEROMEDIAL SUBSEGMENTAL BRANCH TO LOWER POLE * ??SELECTIVE ANGIOGRAPHY OF THE INFEROANTERIOR LEFT RENAL ARTERY INFEROLATERAL SUBSEGMENTAL BRANCH TO LOWER POLE * ??SELECTIVE ANG IOGRAPHY OF THE INFEROANTERIOR LEFT RENAL ARTERY LATERAL INFERIOR SUBSEGMENTAL BRANCH TO LOWER POLE * ??SELECTIVE ANGIOGRAPHY OF THE INFEROANTERIOR LEFT RENAL ARTERY LATERAL SUPERIOR SUBSEGMENTAL BRANCH TO LOWER POLE * ??EMBOLIZATION OF THE INFE ROANTERIOR LEFT RENAL ARTERY INFEROLATERAL SUBSEGMENTAL BRANCH TO LOWER POLE * ??CLOSURE DEVICE USED AT RIGHT COMMON FEMORAL ARTERY * ??CONSCIOUS SEDATION CLINICAL HISTORY: ??IR consulted for left renal active extravasation seen on CTA. Pleasant ??69 year old woman with intermittent atrial fibrillation who reports starting Xarelto August 2019 and developing left flank pain a few weeks ago. Her left flank pain became intolerable yesterday; no trauma, but she reports a recent and ongoing ??UTI as well as exercising on her stationary recumbent bicycle; CTA prior to consult showed the left renal active extravasation. She also has Henoch-Schonlein purpura and mild renal insufficiency. No known history of cancer. LOCAL AREA NETWORK ADMINISTRATOR: ??Diandra Braden M.D. SECONDARY BULL RIDER: Ramos Wyatt M.D. NURSE: See RN note; Prisca. TECH: See Technologist note; Justin. MEDICATIONS: 1% Lidocaine Subcutaneously. Moderate sedation was performed by a trained interventional radiology nurse un cheryl direct physician supervision with 2.5 mg of Versed and 175 mcg fentanyl IV from 0420 hours to 0710 hours. VTE PROPHYLAXIS: None indicated for this ambulatory procedure. ANTIBIOTIC PROPHYLAXIS: None indicated FLUORO TIME/RADIATION DOSE: 31. 8 minutes, Air Kerma [place] 6707 [place] [address] uGy-m^2 COMPLICATIONS: ??None immediately. PATIENT CONDITION: ??Stable. COMPARISON: ??02/04/[address] chest, 10/12/2019 outside CTA abdomen/pelvis TECHNIQUE: ?? The patient was identi fied. After the risks and benefits of the procedure were discussed with the patient, an informed written consent was obtained. The patient was then brought back to interventional suite and placed supine on the table. Appropriate time out was per formed to confirm patient identity and planned procedure. The patient was then prepped and draped in the normal sterile fashion. Strict hand hygiene protocol was observed with the operators doing a surgical hand scrub. All personnel in the renea m were attired in surgical hat and mask. The operators were in surgical hat, mask, sterile gloves and gowns. The sites were prepped with 2% chlorhexidine for cutaneous antisepsis, followed by sterile barrier draping. Conscious sedation was initi ated. ?? AORTOGRAM AND LEFT RENAL ARTERIOGRAPHY AND EMBOLIZATION: The right common femoral artery was accessed with a micropuncture set. A 5 Fr vascular sheath was then placed within the artery. A DSA (Digital Subtraction Angiography) was perfo rmed through the sheath in the common femoral artery. Over an 0.035 in guidewire, a 5 [place] Contra 2 was not successful at selecting the left renal arteries, and so a 5 [place] Omniflush was advanced to T12, above the renal arteries. Aortogram s howed the locations of the two left renal arteries, superoposterior and anteroinferior, and no active extravasation, blush, or pseudoaneurysm was seen. Then, the Omniflush was exchanged for the Contra 2 catheter which was advanced into the lef t superoposterior renal artery; DSA showed no active extravasation, blush, or pseudoaneurysm. After further more peripheral selection of the main branch of the left superoposterior renal artery with the Progreat microcatheter, still no active ex travasation, blush, or pseudoaneurysm was seen. Therefore, the Contra 2 was used to select the left anteroinferior renal artery; DSA showed at least 4-5 sites of active extravasation at the mid to lower renal pole, of varying severity. After p lacement of the Progreat microcatheter more peripherally in the main branch of the left anteroinferior renal artery, it was noted that the greatest extravasation was from the inferoanterior left renal artery inferolateral subsegmental branch to the lower pole, with a bare spot in this region of the lower pole, in keeping with a known renal cyst, which previously measured simple fluid density on 02/04/[address] chest but measured blood density on 10/12/2019 outside CTA abdomen/ pelvis. It was attempted to select this branch with a microcatheter, but first selected was the inferoanterior left renal artery inferomedial subsegmental branch to lower pole; DSA at this branch showed no active extravasation, blush, or pseudoa neurysm at these terminal branches, but did show active extravasation upon reflux into the targeted branch. Next, the targeted branch--the inferoanterior left renal artery inferolateral subsegmental branch to lower pole--was selected, with DSA ??confirming prompt active extravasation. The vessel was more peripherally selected to spare as much non-target renal parenchyma as possible, and satisfactory position was confirmed on DSA; this branch was embolized to stasis with [place]. Post embo lization DSA of the left anteroinferior renal artery through the Contra 2 demonstrated no active extravasation, blush, or pseudoaneurysm at the target vessel, with slightly enlarged area of parenchymal non-filling defect, in keeping with embol ization of this renal sub-segment. Post-embolization DSA also showed additional 3 areas of slow-flow active extravasation at branches involving about 50% of the left renal parenchyma. Branches supplying the largest of these--the inferoanterior l eft renal artery lateral inferior subsegmental branch to lower pole and the inferoanterior left renal artery lateral superior subsegmental branch to lower pole--were serially selected, but DSA confirmed that the active extravasation was slow-tam w. Given these findings, it was decided that the risk of harm to the [place] renal parenchyma in this patient with existing renal insufficiency exceeded the likely gain from embolization at this time. All catheters were removed. The vascular s cyril was removed. AngioSeal VIP was used for vascular closure with no hematoma. A sterile dressing was placed. The patient tolerated the procedure well, with no immediate complication. The patient was transferred to recovery in stable condit ion. The findings were discussed with the patient's family, son Jesus Manuel and daughter Caitlyn, in person after the case. These findings were discussed by executive vice president and chief financial officer Dr. Ramos Wyatt with trauma surgery ICU member Dr. Shaw at 0755 hours on . FINDINGS: As above. ?? IMPRESSION: 1. ??Two left renal arteries; active extravasation of varying degree from mid to lower pole multiple branches (4-5) of the anteroinferior left renal artery. 2. ??Successful angiography and emboliz ation of the site of brisk active extravasation--possibly bleeding into her known left renal cyst--at the inferoanterior left renal artery inferolateral subsegmental branch to lower pole. 3. ??Other sites of active extravasation were noted to be ??slow-flow, with the two most suspicious sites interrogated and this finding confirmed on DSA. 4. ??Given these findings, it was decided that the risk of harm to the [place] renal parenchyma in this patient with existing renal insufficiency exc eeded the likely gain from embolization of multiple sites at this time. RECOMMENDATIONS: * ??Given the embolization of the major site of active extravasation (left renal artery, lower pole branch, inferoanterior left renal artery inferolateral subsegmental branch to lower pole) but non-embolization of other sites of slow-flow active extravasation in order to spare renal parenchyma, IR recommendation is to not restart anticoagulation/antiplatelets except under very close monitoring and ??with a low threshold to discontinue them. * ??Per her family, the patient's Xarelto is for treating atrial fibrillation which is intermittent. It may be helpful to explore other options for decreasing stroke risk, such as cardiac ablation and/ or left atrial appendage closure. * ??This patient has a difficult situation. Any future anticoagulation/antiplatelets must be carefully weighed against her bleeding risk--particularly as noted at this left kidney--and potential further loss of renal parenchyma and renal function if additional renal tissue must be sacrificed by embolization. * ??MRI renal lesion protocol without and with IV contrast, perhaps in a day or two post-procedure, will likely be helpful to assess for any un derlying occult renal mass. * ??If the patient remains hemodynamically stable, the large perirenal hematoma can be percutaneously drained after about 2-3 weeks to try to aid recovery of the remaining left renal parenchyma, as well as for patient ??comfort. CRITICAL RESULT: No. COMMUNICATION: The findings were discussed with the patient's family, son Jesus Manuel and daughter Caitlyn, in person after the case. These findings were discussed by executive vice president and chief financial officer Dr. Ramos Wyatt with trauma [facility] ICU member Dr. Shaw at 0755 hours on 10/13/2019. ATTESTATION: Not Applicable. ?? Verified by: DIANDRA BRADEN M.D. on Oct ??2019 ??9:35P Transcribed by: PSCB on Oct ??9 2019 ??9:35P Dictated by: DIANDRA BRADEN M.D. on Oct ??6 2 020 ??8:24A Procedure Note Diandra Braden - 12/31/2020 REQUESTING PHYSICIAN: DIANDRA BRADEN REASON FOR EXAMINATION/PROCEDURE: * angiographic eval and embolization of left retroperitoneal bleed EXAMINATION / PROCEDURE: ANGIO NOTIFICATION Oct 13 2019:18; LE FT RENAL 2ND ORDER Oct 13 2019:18; Sedation 1st 15 mins >=5yo Oct 13 2019:18; Sedation ea add 15 mins any age Oct 13 2019:18; Sedation ea add 15 mins any age Oct 13 2019:18; Sedation ea add 15 PROCEDURE(S): * ULTRA SOUND GUIDED ACCESS TO THE RIGHT COMMON FEMORAL ARTERY * ANGIOGRAPHY OF THE RIGHT COMMON FEMORAL ARTERY * AORTOGRAM * SELECTIVE ANGIOGRAPHY OF THE SUPEROPOSTERIOR LEFT RENAL ARTERY * SELECTIVE ANGIOGRAPHY OF THE INFEROANTERIOR LEFT RENAL ALVINO RY * SELECTIVE ANGIOGRAPHY OF THE INFEROANTERIOR LEFT RENAL ARTERY INFEROMEDIAL SUBSEGMENTAL BRANCH TO LOWER POLE * SELECTIVE ANGIOGRAPHY OF THE INFEROANTERIOR LEFT RENAL ARTERY INFEROLATERAL SUBSEGMENTAL BRANCH TO LOWER POLE * SELECTIVE ANG IOGRAPHY OF THE INFEROANTERIOR LEFT RENAL ARTERY LATERAL INFERIOR SUBSEGMENTAL BRANCH TO LOWER POLE * SELECTIVE ANGIOGRAPHY OF THE INFEROANTERIOR LEFT RENAL ARTERY LATERAL SUPERIOR SUBSEGMENTAL BRANCH TO LOWER POLE * EMBOLIZATION OF THE INFE ROANTERIOR LEFT RENAL ARTERY INFEROLATERAL SUBSEGMENTAL BRANCH TO LOWER POLE * CLOSURE DEVICE USED AT RIGHT COMMON FEMORAL ARTERY * CONSCIOUS SEDATION CLINICAL HISTORY: IR consulted for left renal active extravasation seen on CTA. Pleasant 69 year old woman with intermittent atrial fibrillation who reports starting Xarelto August 2019 and developing left flank pain a few weeks ago. Her left flank pain became intolerable yesterday; no trauma, but she reports a recent and ongoing UTI as well as exercising on her stationary recumbent bicycle; CTA prior to consult showed the left renal active extravasation. She also has Henoch-Schonlein purpura and mild renal insufficiency. No known history of cancer. LOCAL AREA NETWORK ADMINISTRATOR: Diandra Braden M.D. SECONDARY BULL RIDER: Ramos Wyatt M.D. NURSE: See RN note; Prisca. TECH: See Technologist note; Justin. MEDICATIONS: 1% Lidocaine Subcutaneously. Moderate sedation was performed by a trained interventional radiology nurse un cheryl direct physician supervision with 2.5 mg of Versed and 175 mcg fentanyl IV from 0420 hours to 0710 hours. VTE PROPHYLAXIS: None indicated for this ambulatory procedure. ANTIBIOTIC PROPHYLAXIS: None indicated FLUORO TIME/RADIATION DOSE: 31. 8 minutes, Air Kerma of 6707 mGy[place] [address] uGy-m^2 COMPLICATIONS: None immediately. PATIENT CONDITION: Stable. COMPARISON: 02/04/[address] chest, 10/12/2019 outside CTA abdomen/pelvis TECHNIQUE: The patient was identi fied. After the risks and benefits of the procedure were discussed with the patient, an informed written consent was obtained. The patient was then brought back to interventional suite and placed supine on the table. Appropriate time out was per formed to confirm patient identity and planned procedure. The patient was then prepped and draped in the normal sterile fashion. Strict hand hygiene protocol was observed with the operators doing a surgical hand scrub. All personnel in the renea were attired in surgical hat and mask. The operators were in surgical hat, mask, sterile gloves and gowns. The sites were prepped with 2% chlorhexidine for cutaneous antisepsis, followed by sterile barrier draping. Conscious sedation was initi ated. AORTOGRAM AND LEFT RENAL ARTERIOGRAPHY AND EMBOLIZATION: The right common femoral artery was accessed with a micropuncture set. A 5 Fr vascular sheath was then placed within the artery. A DSA (Digital Subtraction Angiography) was perfo rmed through the sheath in the common femoral artery. Over an 0.035 in guidewire, a 5 [place] Contra 2 was not successful at selecting the left renal arteries, and so a 5 [place] Omniflush was advanced to T12, above the renal arteries. Aortogram s howed the locations of the two left renal arteries, superoposterior and anteroinferior, and no active extravasation, blush, or pseudoaneurysm was seen. Then, the Omniflush was exchanged for the Contra 2 catheter which was advanced into the lef t superoposterior renal artery; DSA showed no active extravasation, blush, or pseudoaneurysm. After further more peripheral selection of the main branch of the left superoposterior renal artery with the Progreat microcatheter, still no active ex travasation, blush, or pseudoaneurysm was seen. Therefore, the Contra 2 was used to select the left anteroinferior renal artery; DSA showed at least 4-5 sites of active extravasation at the mid to lower renal pole, of varying severity. After p lacement of the Progreat microcatheter more peripherally in the main branch of the left anteroinferior renal artery, it was noted that the greatest extravasation was from the inferoanterior left renal artery inferolateral subsegmental branch to the lower pole, with a bare spot in this region of the lower pole, in keeping with a known renal cyst, which previously measured simple fluid density on 02/04/[address] chest but measured blood density on 10/12/2019 outside CTA abdomen/ pelvis. It was attempted to select this branch with a microcatheter, but first selected was the inferoanterior left renal artery inferomedial subsegmental branch to lower pole; DSA at this branch showed no active extravasation, blush, or pseudoa neurysm at these terminal branches, but did show active extravasation upon reflux into the targeted branch. Next, the targeted branch--the inferoanterior left renal artery inferolateral subsegmental branch to lower pole--was selected, with DSA confirming prompt active extravasation. The vessel was more peripherally selected to spare as much non-target renal parenchyma as possible, and satisfactory position was confirmed on DSA; this branch was embolized to stasis with [place]. Post embo lization DSA of the left anteroinferior renal artery through the Contra 2 demonstrated no active extravasation, blush, or pseudoaneurysm at the target vessel, with slightly enlarged area of parenchymal non-filling defect, in keeping with embol ization of this renal sub-segment. Post-embolization DSA also showed additional 3 areas of slow-flow active extravasation at branches involving about 50% of the left renal parenchyma. Branches supplying the largest of these--the inferoanterior l eft renal artery lateral inferior subsegmental branch to lower pole and the inferoanterior left renal artery lateral superior subsegmental branch to lower pole--were serially selected, but DSA confirmed that the active extravasation was slow-tam w. Given these findings, it was decided that the risk of harm to the [place] renal parenchyma in this patient with existing renal insufficiency exceeded the likely gain from embolization at this time. All catheters were removed. The vascular s cyril was removed. AngioSeal VIP was used for vascular closure with no hematoma. A sterile dressing was placed. The patient tolerated the procedure well, with no immediate complication. The patient was transferred to recovery in stable condit ion. The findings were discussed with the patient's family, son Jesus Manuel and daughter Caitlyn, in person after the case. These findings were discussed by executive vice president and chief financial officer Dr. Ramos Wyatt with trauma surgery ICU member Dr. Shaw at 0755 hours on . FINDINGS: As above. IMPRESSION: 1. Two left renal arteries; active extravasation of varying degree from mid to lower pole multiple branches (4-5) of the anteroinferior left renal artery. 2. Successful angiography and emboliz ation of the site of brisk active extravasation--possibly bleeding into her known left renal cyst--at the inferoanterior left renal artery inferolateral subsegmental branch to lower pole. 3. Other sites of active extravasation were noted to be slow-flow, with the two most suspicious sites interrogated and this finding confirmed on DSA. 4. Given these findings, it was decided that the risk of harm to the [place] renal parenchyma in this patient with existing renal insufficiency exc eeded the likely gain from embolization of multiple sites at thistime. RECOMMENDATIONS: * Given the embolization of the major site of active extravasation (left renal artery, lower pole branch, inferoanterior left renal artery inferolateral subsegmental branch to lower pole) but non-embolization of other sites of slow-flow active extravasation in order to spare renal parenchyma, IR recommendation is to not restart anticoagulation/antiplatelets except under very close monitoring and with a low threshold to discontinue them. * Per her family, the patient's Xarelto is for treating atrial fibrillation which is intermittent. It may be helpful to explore other options for decreasing stroke risk, such as cardiac ablation and/ or left atrial appendage closure. * This patient has a difficult situation. Any future anticoagulation/antiplatelets must be carefully weighed against her bleeding risk--particularly as noted at this left kidney--and potential further loss of renal parenchyma and renal function if additional renal tissue must be sacrificed by embolization. * MRI renal lesion protocol without and with IV contrast, perhaps in a day or two post-procedure, will likely be helpful to assess for any un derlying occult renal mass. * If the patient remains hemodynamically stable, the large perirenal hematoma can be percutaneously drained after about 2-3 weeks to try to aid recovery of the remaining left renal parenchyma, as well as for patient comfort. CRITICAL RESULT: No. COMMUNICATION: The findings were discussed with the patient's family, son Jesus Manuel and daughter Caitlyn, in person after the case. These findings were discussed by executive vice president and chief financial officer Dr. Ramos Wyatt with trauma [facility] ICU member Dr. Shaw at 0755 hours on 10/13/2019. ATTESTATION: Not Applicable. Verified by: DIANDRA BRADEN M.D. on Oct 16 2019 9:35P Transcribed by: PSCB on Oct 16 2019 9:35P Dictated by: DIANDRA BRADEN M.D. on Oct 13 2 020 8:24A us Diandra Braden MD IMG IR PROCEDURES Final R esult * IR VIR HISTORICAL (10/13/2019 7:18 AM EST) Anatomical Region Laterality Modality X-Ray Angiograph y Narrative 10/16/2019 9:36 PM EST REQUESTING PHYSICIAN: DIANDRA BRADEN REASON FOR EXAMINATION/PROCEDURE: ?? * ??angiographic eval and embolization of left retroperitoneal bleed EXAMINATION / PROCEDURE: ANGIO NOTIFICATION Oct ??2019 - 07:18; LE FT RENAL 2ND ORDER Oct ??6 2019:18; Sedation 1st 15 mins >=5yo Feb ??6 2019:18; Sedation ea add 15 mins any age Feb ??6 2019:18; Sedation ea add 15 mins any age Feb ?? 6 2019:18; Sedation ea add 15 ? PROCEDURE(S): ?? * ??ULTRA SOUND GUIDED ACCESS TO THE RIGHT COMMON FEMORAL ARTERY * ??ANGIOGRAPHY OF THE RIGHT COMMON FEMORAL ARTERY * ??AORTOGRAM * ??SELECTIVE ANGIOGRAPHY OF THE SUPEROPOSTERIOR LEFT RENAL ARTERY * ??SELECTIVE ANGIOGRAPHY OF THE INFEROANTERIOR LEFT RENAL ALVINO RY * ??SELECTIVE ANGIOGRAPHY OF THE INFEROANTERIOR LEFT RENAL ARTERY INFEROMEDIAL SUBSEGMENTAL BRANCH TO LOWER POLE * ??SELECTIVE ANGIOGRAPHY OF THE INFEROANTERIOR LEFT RENAL ARTERY INFEROLATERAL SUBSEGMENTAL BRANCH TO LOWER POLE * ??SELECTIVE ANG IOGRAPHY OF THE INFEROANTERIOR LEFT RENAL ARTERY LATERAL INFERIOR SUBSEGMENTAL BRANCH TO LOWER POLE * ??SELECTIVE ANGIOGRAPHY OF THE INFEROANTERIOR LEFT RENAL ARTERY LATERAL SUPERIOR SUBSEGMENTAL BRANCH TO LOWER POLE * ??EMBOLIZATION OF THE INFE ROANTERIOR LEFT RENAL ARTERY INFEROLATERAL SUBSEGMENTAL BRANCH TO LOWER POLE * ??CLOSURE DEVICE USED AT RIGHT COMMON FEMORAL ARTERY * ??CONSCIOUS SEDATION CLINICAL HISTORY: ??IR consulted for left renal active extravasation seen on CTA. Pleasant ??69 year old woman with intermittent atrial fibrillation who reports starting Xarelto August 2019 and developing left flank pain a few weeks ago. Her left flank pain became intolerable yesterday; no trauma, but she reports a recent and ongoing ??UTI as well as exercising on her stationary recumbent bicycle; CTA prior to consult showed the left renal active extravasation. She also has Henoch-Schonlein purpura and mild renal insufficiency. No known history of cancer. LOCAL AREA NETWORK ADMINISTRATOR: ??Diandra Braden M.D. SECONDARY BULL RIDER: Ramos Wyatt M.D. NURSE: See RN note; Prisca. TECH: See Technologist note; Justin. MEDICATIONS: 1% Lidocaine Subcutaneously. Moderate sedation was performed by a trained interventional radiology nurse un cheryl direct physician supervision with 2.5 mg of Versed and 175 mcg fentanyl IV from 0420 hours to 0710 hours. VTE PROPHYLAXIS: None indicated for this ambulatory procedure. ANTIBIOTIC PROPHYLAXIS: None indicated FLUORO TIME/RADIATION DOSE: 31. 8 minutes, Air Kerma of 6707 [place] [address] uGy-m^2 COMPLICATIONS: ??None immediately. PATIENT CONDITION: ??Stable. COMPARISON: ??02/04/[address] chest, 10/12/2019 outside CTA abdomen/pelvis TECHNIQUE: ?? The patient was identi fied. After the risks and benefits of the procedure were discussed with the patient, an informed written consent was obtained. The patient was then brought back to interventional suite and placed supine on the table. Appropriate time out was per formed to confirm patient identity and planned procedure. The patient was then prepped and draped in the normal sterile fashion. Strict hand hygiene protocol was observed with the operators doing a surgical hand scrub. All personnel in the [facility] were attired in surgical hat and mask. The operators were in surgical hat, mask, sterile gloves and gowns. The sites were prepped with 2% chlorhexidine for cutaneous antisepsis, followed by sterile barrier draping. Conscious sedation was initi ated. ?? AORTOGRAM AND LEFT RENAL ARTERIOGRAPHY AND EMBOLIZATION: The right common femoral artery was accessed with a micropuncture set. A 5 Fr vascular sheath was then placed within the artery. A DSA (Digital Subtraction Angiography) was perfo rmed through the sheath in the common femoral artery. Over an 0.035 in guidewire, a 5 Luxem[place] Contra 2 was not successful at selecting the left renal arteries, and so a 5 [place] Omniflush was advanced to T12, above the renal arteries. Aortogram s howed the locations of the two left renal arteries, superoposterior and anteroinferior, and no active extravasation, blush, or pseudoaneurysm was seen. Then, the Omniflush was exchanged for the Contra 2 catheter which was advanced into the lef t superoposterior renal artery; DSA showed no active extravasation, blush, or pseudoaneurysm. After further more peripheral selection of the main branch of the left superoposterior renal artery with the Progreat microcatheter, still no active ex travasation, blush, or pseudoaneurysm was seen. Therefore, the Contra 2 was used to select the left anteroinferior renal artery; DSA showed at least 4-5 sites of active extravasation at the mid to lower renal pole, of varying severity. After p lacement of the Progreat microcatheter more peripherally in the main branch of the left anteroinferior renal artery, it was noted that the greatest extravasation was from the inferoanterior left renal artery inferolateral subsegmental branch to the lower pole, with a bare spot in this region of the lower pole, in keeping with a known renal cyst, which previously measured simple fluid density on 02/04/[address] chest but measured blood density on 10/12/2019 outside CTA abdomen/ pelvis. It was attempted to select this branch with a microcatheter, but first selected was the inferoanterior left renal artery inferomedial subsegmental branch to lower pole; DSA at this branch showed no active extravasation, blush, or pseudoa neurysm at these terminal branches, but did show active extravasation upon reflux into the targeted branch. Next, the targeted branch--the inferoanterior left renal artery inferolateral subsegmental branch to lower pole--was selected, with DSA ??confirming prompt active extravasation. The vessel was more peripherally selected to spare as much non-target renal parenchyma as possible, and satisfactory position was confirmed on DSA; this branch was embolized to stasis with Mc. Post embo lization DSA of the left anteroinferior renal artery through the Contra 2 demonstrated no active extravasation, blush, or pseudoaneurysm at the target vessel, with slightly enlarged area of parenchymal non-filling defect, in keeping with embol ization of this renal sub-segment. Post-embolization DSA also showed additional 3 areas of slow-flow active extravasation at branches involving about 50% of the left renal parenchyma. Branches supplying the largest of these--the inferoanterior l eft renal artery lateral inferior subsegmental branch to lower pole and the inferoanterior left renal artery lateral superior subsegmental branch to lower pole--were serially selected, but DSA confirmed that the active extravasation was slow-tam w. Given these findings, it was decided that the risk of harm to the [place] renal parenchyma in this patient with existing renal insufficiency exceeded the likely gain from embolization at this time. All catheters were removed. The vascular s cyril was removed. AngioSeal VIP was used for vascular closure with no hematoma. A sterile dressing was placed. The patient tolerated the procedure well, with no immediate complication. The patient was transferred to recovery in stable condit ion. The findings were discussed with the patient's family, son Jesus Manuel and daughter Caitlyn, in person after the case. These findings were discussed by executive vice president and chief financial officer Dr. Ramos Wyatt with trauma surgery ICU member Dr. Shaw at 0755 hours on . FINDINGS: As above. ?? IMPRESSION: 1. ??Two left renal arteries; active extravasation of varying degree from mid to lower pole multiple branches (4-5) of the anteroinferior left renal artery. 2. ??Successful angiography and emboliz ation of the site of brisk active extravasation--possibly bleeding into her known left renal cyst--at the inferoanterior left renal artery inferolateral subsegmental branch to lower pole. 3. ??Other sites of active extravasation were noted to be ??slow-flow, with the two most suspicious sites interrogated and this finding confirmed on DSA. 4. ??Given these findings, it was decided that the risk of harm to the [place] renal parenchyma in this patient with existing renal insufficiency exc eeded the likely gain from embolization of multiple sites at this time. RECOMMENDATIONS: * ??Given the embolization of the major site of active extravasation (left renal artery, lower pole branch, inferoanterior left renal artery inferolateral subsegmental branch to lower pole) but non-embolization of other sites of slow-flow active extravasation in order to spare renal parenchyma, IR recommendation is to not restart anticoagulation/antiplatelets except under very close monitoring and ??with a low threshold to discontinue them. * ??Per her family, the patient's Xarelto is for treating atrial fibrillation which is intermittent. It may be helpful to explore other options for decreasing stroke risk, such as cardiac ablation and/ or left atrial appendage closure. * ??This patient has a difficult situation. Any future anticoagulation/antiplatelets must be carefully weighed against her bleeding risk--particularly as noted at this left kidney--and potential further loss of renal parenchyma and renal function if additional renal tissue must be sacrificed by embolization. * ??MRI renal lesion protocol without and with IV contrast, perhaps in a day or two post-procedure, will likely be helpful to assess for any un derlying occult renal mass. * ??If the patient remains hemodynamically stable, the large perirenal hematoma can be percutaneously drained after about 2-3 weeks to try to aid recovery of the remaining left renal parenchyma, as well as for patient ??comfort. CRITICAL RESULT: No. COMMUNICATION: The findings were discussed with the patient's family, son Jesus Manuel and daughter Caitlyn, in person after the case. These findings were discussed by executive vice president and chief financial officer Dr. Ramos Wyatt with trauma [facility] ICU member Dr. Shaw at 0755 hours on 10/13/2019. ATTESTATION: Not Applicable. ?? Verified by: DIANDRA BRADEN M.D. on Oct ??9 2019 ??9:35P Transcribed by: PSCB on Oct ??9 2020 ??9:35P Dictated by: DIANDRA BRADEN M.D. on Oct ??6 2 020 ??8:24A Procedure Note Diandra Braden - 12/31/2020 REQUESTING PHYSICIAN: DIANDRA BRADEN REASON FOR EXAMINATION/PROCEDURE: * angiographic eval and embolization of left retroperitoneal bleed EXAMINATION / PROCEDURE: ANGIO NOTIFICATION Oct 13 2019:18; LE FT RENAL 2ND ORDER Oct 13 2019:18; Sedation 1st 15 mins >=5yo Oct 13 2019:18; Sedation ea add 15 mins any age Oct 13 2019:18; Sedation ea add 15 mins any age Oct 13 2019:18; Sedation ea add 15 PROCEDURE(S): * ULTRA SOUND GUIDED ACCESS TO THE RIGHT COMMON FEMORAL ARTERY * ANGIOGRAPHY OF THE RIGHT COMMON FEMORAL ARTERY * AORTOGRAM * SELECTIVE ANGIOGRAPHY OF THE SUPEROPOSTERIOR LEFT RENAL ARTERY * SELECTIVE ANGIOGRAPHY OF THE INFEROANTERIOR LEFT RENAL ALVINO RY * SELECTIVE ANGIOGRAPHY OF THE INFEROANTERIOR LEFT RENAL ARTERY INFEROMEDIAL SUBSEGMENTAL BRANCH TO LOWER POLE * SELECTIVE ANGIOGRAPHY OF THE INFEROANTERIOR LEFT RENAL ARTERY INFEROLATERAL SUBSEGMENTAL BRANCH TO LOWER POLE * SELECTIVE ANG IOGRAPHY OF THE INFEROANTERIOR LEFT RENAL ARTERY LATERAL INFERIOR SUBSEGMENTAL BRANCH TO LOWER POLE * SELECTIVE ANGIOGRAPHY OF THE INFEROANTERIOR LEFT RENAL ARTERY LATERAL SUPERIOR SUBSEGMENTAL BRANCH TO LOWER POLE * EMBOLIZATION OF THE INFE ROANTERIOR LEFT RENAL ARTERY INFEROLATERAL SUBSEGMENTAL BRANCH TO LOWER POLE * CLOSURE DEVICE USED AT RIGHT COMMON FEMORAL ARTERY * CONSCIOUS SEDATION CLINICAL HISTORY: IR consulted for left renal active extravasation seen on CTA. Pleasant 69 year old woman with intermittent atrial fibrillation who reports starting Xarelto August 2019 and developing left flank pain a few weeks ago. Her left flank pain became intolerable yesterday; no trauma, but she reports a recent and ongoing UTI as well as exercising on her stationary recumbent bicycle; CTA prior to consult showed the left renal active extravasation. She also has Henoch-Schonlein purpura and mild renal insufficiency. No known history of cancer. LOCAL AREA NETWORK ADMINISTRATOR: Diandra Braden M.D. SECONDARY BULL RIDER: Ramos Wyatt M.D. NURSE: See RN note; Prisca. TECH: See Technologist note; Justin. MEDICATIONS: 1% Lidocaine Subcutaneously. Moderate sedation was performed by a trained interventional radiology nurse un cheryl direct physician supervision with 2.5 mg of Versed and 175 mcg fentanyl IV from 0420 hours to 0710 hours. VTE PROPHYLAXIS: None indicated for this ambulatory procedure. ANTIBIOTIC PROPHYLAXIS: None indicated FLUORO TIME/RADIATION DOSE: 31. 8 minutes, Air Kerma of 6707 [place] [address] uGy-m^2 COMPLICATIONS: None immediately. PATIENT CONDITION: Stable. COMPARISON: 02/04/[address] chest, 10/12/2019 outside CTA abdomen/pelvis TECHNIQUE: The patient was identi fied. After the risks and benefits of the procedure were discussed with the patient, an informed written consent was obtained. The patient was then brought back to interventional suite and placed supine on the table. Appropriate time out was per formed to confirm patient identity and planned procedure. The patient was then prepped and draped in the normal sterile fashion. Strict hand hygiene protocol was observed with the operators doing a surgical hand scrub. All personnel in the [facility] were attired in surgical hat and mask. The operators were in surgical hat, mask, sterile gloves and gowns. The sites were prepped with 2% chlorhexidine for cutaneous antisepsis, followed by sterile barrier draping. Conscious sedation was initi ated. AORTOGRAM AND LEFT RENAL ARTERIOGRAPHY AND EMBOLIZATION: The right common femoral artery was accessed with a micropuncture set. A 5 Fr vascular sheath was then placed within the artery. A DSA (Digital Subtraction Angiography) was perfo rmed through the sheath in the common femoral artery. Over an 0.035 in guidewire, a 5 Luxembourger Contra 2 was not successful at selecting the left renal arteries, and so a 5 [place] Omniflush was advanced to T12, above the renal arteries. Aortogram s howed the locations of the two left renal arteries, superoposterior and anteroinferior, and no active extravasation, blush, or pseudoaneurysm was seen. Then, the Omniflush was exchanged for the Contra 2 catheter which was advanced into the lef t superoposterior renal artery; DSA showed no active extravasation, blush, or pseudoaneurysm. After further more peripheral selection of the main branch of the left superoposterior renal artery with the Progreat microcatheter, still no active ex travasation, blush, or pseudoaneurysm was seen. Therefore, the Contra 2 was used to select the left anteroinferior renal artery; DSA showed at least 4-5 sites of active extravasation at the mid to lower renal pole, of varying severity. After p lacement of the Progreat microcatheter more peripherally in the main branch of the left anteroinferior renal artery, it was noted that the greatest extravasation was from the inferoanterior left renal artery inferolateral subsegmental branch to the lower pole, with a bare spot in this region of the lower pole, in keeping with a known renal cyst, which previously measured simple fluid density on 02/04/[address] chest but measured blood density on 10/12/2019 outside CTA abdomen/ pelvis. It was attempted to select this branch with a microcatheter, but first selected was the inferoanterior left renal artery inferomedial subsegmental branch to lower pole; DSA at this branch showed no active extravasation, blush, or pseudoa neurysm at these terminal branches, but did show active extravasation upon reflux into the targeted branch. Next, the targeted branch--the inferoanterior left renal artery inferolateral subsegmental branch to lower pole--was selected, with DSA confirming prompt active extravasation. The vessel was more peripherally selected to spare as much non-target renal parenchyma as possible, and satisfactory position was confirmed on DSA; this branch was embolized to stasis with Mc. Post embo lization DSA of the left anteroinferior renal artery through the Contra 2 demonstrated no active extravasation, blush, or pseudoaneurysm at the target vessel, with slightly enlarged area of parenchymal non-filling defect, in keeping with embol ization of this renal sub-segment. Post-embolization DSA also showed additional 3 areas of slow-flow active extravasation at branches involving about 50% of the left renal parenchyma. Branches supplying the largest of these--the inferoanterior l eft renal artery lateral inferior subsegmental branch to lower pole and the inferoanterior left renal artery lateral superior subsegmental branch to lower pole--were serially selected, but DSA confirmed that the active extravasation was slow-tam w. Given these findings, it was decided that the risk of harm to the [place] renal parenchyma in this patient with existing renal insufficiency exceeded the likely gain from embolization at this time. All catheters were removed. The vascular s cyril was removed. AngioSeal VIP was used for vascular closure with no hematoma. A sterile dressing was placed. The patient tolerated the procedure well, with no immediate complication. The patient was transferred to recovery in stable condit ion. The findings were discussed with the patient's family, son Jesus Manuel and daughter Caitlyn, in person after the case. These findings were discussed by executive vice president and chief financial officer Dr. Ramos Wyatt with trauma surgery ICU member Dr. Shaw at 0755 hours on . FINDINGS: As above. IMPRESSION: 1. Two left renal arteries; active extravasation of varying degree from mid to lower pole multiple branches (4-5) of the anteroinferior left renal artery. 2. Successful angiography and emboliz ation of the site of brisk active extravasation--possibly bleeding into her known left renal cyst--at the inferoanterior left renal artery inferolateral subsegmental branch to lower pole. 3. Other sites of active extravasation were noted to be slow-flow, with the two most suspicious sites interrogated and this finding confirmed on DSA. 4. Given these findings, it was decided that the risk of harm to the [place] renal parenchyma in this patient with existing renal insufficiency exc eeded the likely gain from embolization of multiple sites at thistime. RECOMMENDATIONS: * Given the embolization of the major site of active extravasation (left renal artery, lower pole branch, inferoanterior left renal artery inferolateral subsegmental branch to lower pole) but non-embolization of other sites of slow-flow active extravasation in order to spare renal parenchyma, IR recommendation is to not restart anticoagulation/antiplatelets except under very close monitoring and with a low threshold to discontinue them. * Per her family, the patient's Xarelto is for treating atrial fibrillation which is intermittent. It may be helpful to explore other options for decreasing stroke risk, such as cardiac ablation and/ or left atrial appendage closure. * This patient has a difficult situation. Any future anticoagulation/antiplatelets must be carefully weighed against her bleeding risk--particularly as noted at this left kidney--and potential further loss of renal parenchyma and renal function if additional renal tissue must be sacrificed by embolization. * MRI renal lesion protocol without and with IV contrast, perhaps in a day or two post-procedure, will likely be helpful to assess for any un derlying occult renal mass. * If the patient remains hemodynamically stable, the large perirenal hematoma can be percutaneously drained after about 2-3 weeks to try to aid recovery of the remaining left renal parenchyma, as well as for patient comfort. CRITICAL RESULT: No. COMMUNICATION: The findings were discussed with the patient's family, son Jesus Manuel and daughter Caitlyn, in person after the case. These findings were discussed by executive vice president and chief financial officer Dr. Ramos Wyatt with trauma [facility] ICU member Dr. Shaw at 0755 hours on 10/13/2019. ATTESTATION: Not Applicable. Verified by: DIANDRA BRADEN M.D. on Oct 16 2019 9:35P Transcribed by: PSCB on Oct 16 2019 9:35P Dictated by: DIANDRA BRADEN M.D. on Oct 13 020 8:24A us Diandra Braden MD IMG IR PROCEDURES Final R esult * IR VIR HISTORICAL (10/13/2019 7:18 AM EST) Anatomical Region Laterality Modality X-Ray Angiograph y Narrative 10/16/2019 9:36 PM EST REQUESTING PHYSICIAN: DIANDRA BRADEN REASON FOR EXAMINATION/PROCEDURE: ?? * ??angiographic eval and embolization of left retroperitoneal bleed EXAMINATION / PROCEDURE: ANGIO NOTIFICATION Feb ??6 201918; LE FT RENAL 2ND ORDER Feb ??6 201918; Sedation 1st 15 mins >=5yo Feb ??6 2019:18; Sedation ea add 15 mins any age Feb ??6 201918; Sedation ea add 15 mins any age Feb ?? 6 2020 - 07:18; Sedation ea add 15 ? PROCEDURE(S): ?? * ??ULTRA SOUND GUIDED ACCESS TO THE RIGHT COMMON FEMORAL ARTERY * ??ANGIOGRAPHY OF THE RIGHT COMMON FEMORAL ARTERY * ??AORTOGRAM * ??SELECTIVE ANGIOGRAPHY OF THE SUPEROPOSTERIOR LEFT RENAL ARTERY * ??SELECTIVE ANGIOGRAPHY OF THE INFEROANTERIOR LEFT RENAL ALVINO RY * ??SELECTIVE ANGIOGRAPHY OF THE INFEROANTERIOR LEFT RENAL ARTERY INFEROMEDIAL SUBSEGMENTAL BRANCH TO LOWER POLE * ??SELECTIVE ANGIOGRAPHY OF THE INFEROANTERIOR LEFT RENAL ARTERY INFEROLATERAL SUBSEGMENTAL BRANCH TO LOWER POLE * ??SELECTIVE ANG IOGRAPHY OF THE INFEROANTERIOR LEFT RENAL ARTERY LATERAL INFERIOR SUBSEGMENTAL BRANCH TO LOWER POLE * ??SELECTIVE ANGIOGRAPHY OF THE INFEROANTERIOR LEFT RENAL ARTERY LATERAL SUPERIOR SUBSEGMENTAL BRANCH TO LOWER POLE * ??EMBOLIZATION OF THE INFE ROANTERIOR LEFT RENAL ARTERY INFEROLATERAL SUBSEGMENTAL BRANCH TO LOWER POLE * ??CLOSURE DEVICE USED AT RIGHT COMMON FEMORAL ARTERY * ??CONSCIOUS SEDATION CLINICAL HISTORY: ??IR consulted for left renal active extravasation seen on CTA. Pleasant ??69 year old woman with intermittent atrial fibrillation who reports starting Xarelto August 2019 and developing left flank pain a few weeks ago. Her left flank pain became intolerable yesterday; no trauma, but she reports a recent and ongoing ??UTI as well as exercising on her stationary recumbent bicycle; CTA prior to consult showed the left renal active extravasation. She also has Henoch-Schonlein purpura and mild renal insufficiency. No known history of cancer. LOCAL AREA NETWORK ADMINISTRATOR: ??Diandra Braden M.D. SECONDARY BULL RIDER: Ramos Wyatt M.D. NURSE: See RN note; Prisca. TECH: See Technologist note; Justin. MEDICATIONS: 1% Lidocaine Subcutaneously. Moderate sedation was performed by a trained interventional radiology nurse un cheryl direct physician supervision with 2.5 mg of Versed and 175 mcg fentanyl IV from 0420 hours to 0710 hours. VTE PROPHYLAXIS: None indicated for this ambulatory procedure. ANTIBIOTIC PROPHYLAXIS: None indicated FLUORO TIME/RADIATION DOSE: 31. 8 minutes, Air Kerma of 6707 mGy[place] [address] uGy-m^2 COMPLICATIONS: ??None immediately. PATIENT CONDITION: ??Stable. COMPARISON: ??02/04/[address] chest, 10/12/2019 outside CTA abdomen/pelvis TECHNIQUE: ?? The patient was identi fied. After the risks and benefits of the procedure were discussed with the patient, an informed written consent was obtained. The patient was then brought back to interventional suite and placed supine on the table. Appropriate time out was per formed to confirm patient identity and planned procedure. The patient was then prepped and draped in the normal sterile fashion. Strict hand hygiene protocol was observed with the operators doing a surgical hand scrub. All personnel in the [facility] were attired in surgical hat and mask. The operators were in surgical hat, mask, sterile gloves and gowns. The sites were prepped with 2% chlorhexidine for cutaneous antisepsis, followed by sterile barrier draping. Conscious sedation was initi ated. ?? AORTOGRAM AND LEFT RENAL ARTERIOGRAPHY AND EMBOLIZATION: The right common femoral artery was accessed with a micropuncture set. A 5 Fr vascular sheath was then placed within the artery. A DSA (Digital Subtraction Angiography) was perfo rmed through the sheath in the common femoral artery. Over an 0.035 in guidewire, a 5 [place] Contra 2 was not successful at selecting the left renal arteries, and so a 5 [place] Omniflush was advanced to T12, above the renal arteries. Aortogram s howed the locations of the two left renal arteries, superoposterior and anteroinferior, and no active extravasation, blush, or pseudoaneurysm was seen. Then, the Omniflush was exchanged for the Contra 2 catheter which was advanced into the lef t superoposterior renal artery; DSA showed no active extravasation, blush, or pseudoaneurysm. After further more peripheral selection of the main branch of the left superoposterior renal artery with the Progreat microcatheter, still no active ex travasation, blush, or pseudoaneurysm was seen. Therefore, the Contra 2 was used to select the left anteroinferior renal artery; DSA showed at least 4-5 sites of active extravasation at the mid to lower renal pole, of varying severity. After p lacement of the Progreat microcatheter more peripherally in the main branch of the left anteroinferior renal artery, it was noted that the greatest extravasation was from the inferoanterior left renal artery inferolateral subsegmental branch to the lower pole, with a bare spot in this region of the lower pole, in keeping with a known renal cyst, which previously measured simple fluid density on 02/04/[address] chest but measured blood density on 10/12/2019 outside CTA abdomen/ pelvis. It was attempted to select this branch with a microcatheter, but first selected was the inferoanterior left renal artery inferomedial subsegmental branch to lower pole; DSA at this branch showed no active extravasation, blush, or pseudoa neurysm at these terminal branches, but did show active extravasation upon reflux into the targeted branch. Next, the targeted branch--the inferoanterior left renal artery inferolateral subsegmental branch to lower pole--was selected, with DSA ??confirming prompt active extravasation. The vessel was more peripherally selected to spare as much non-target renal parenchyma as possible, and satisfactory position was confirmed on DSA; this branch was embolized to stasis with [place]. Post embo lization DSA of the left anteroinferior renal artery through the Contra 2 demonstrated no active extravasation, blush, or pseudoaneurysm at the target vessel, with slightly enlarged area of parenchymal non-filling defect, in keeping with embol ization of this renal sub-segment. Post-embolization DSA also showed additional 3 areas of slow-flow active extravasation at branches involving about 50% of the left renal parenchyma. Branches supplying the largest of these--the inferoanterior l eft renal artery lateral inferior subsegmental branch to lower pole and the inferoanterior left renal artery lateral superior subsegmental branch to lower pole--were serially selected, but DSA confirmed that the active extravasation was slow-tam w. Given these findings, it was decided that the risk of harm to the [place] renal parenchyma in this patient with existing renal insufficiency exceeded the likely gain from embolization at this time. All catheters were removed. The vascular s cyril was removed. AngioSeal VIP was used for vascular closure with no hematoma. A sterile dressing was placed. The patient tolerated the procedure well, with no immediate complication. The patient was transferred to recovery in stable condit ion. The findings were discussed with the patient's family, son Jesus Manuel and daughter Caitlyn, in person after the case. These findings were discussed by executive vice president and chief financial officer Dr. Ramos Wyatt with trauma surgery ICU member Dr. Shaw at 0755 hours on . FINDINGS: As above. ?? IMPRESSION: 1. ??Two left renal arteries; active extravasation of varying degree from mid to lower pole multiple branches (4-5) of the anteroinferior left renal artery. 2. ??Successful angiography and emboliz ation of the site of brisk active extravasation--possibly bleeding into her known left renal cyst--at the inferoanterior left renal artery inferolateral subsegmental branch to lower pole. 3. ??Other sites of active extravasation were noted to be ??slow-flow, with the two most suspicious sites interrogated and this finding confirmed on DSA. 4. ??Given these findings, it was decided that the risk of harm to the [place] renal parenchyma in this patient with existing renal insufficiency exc eeded the likely gain from embolization of multiple sites at this time. RECOMMENDATIONS: * ??Given the embolization of the major site of active extravasation (left renal artery, lower pole branch, inferoanterior left renal artery inferolateral subsegmental branch to lower pole) but non-embolization of other sites of slow-flow active extravasation in order to spare renal parenchyma, IR recommendation is to not restart anticoagulation/antiplatelets except under very close monitoring and ??with a low threshold to discontinue them. * ??Per her family, the patient's Xarelto is for treating atrial fibrillation which is intermittent. It may be helpful to explore other options for decreasing stroke risk, such as cardiac ablation and/ or left atrial appendage closure. * ??This patient has a difficult situation. Any future anticoagulation/antiplatelets must be carefully weighed against her bleeding risk--particularly as noted at this left kidney--and potential further loss of renal parenchyma and renal function if additional renal tissue must be sacrificed by embolization. * ??MRI renal lesion protocol without and with IV contrast, perhaps in a day or two post-procedure, will likely be helpful to assess for any un derlying occult renal mass. * ??If the patient remains hemodynamically stable, the large perirenal hematoma can be percutaneously drained after about 2-3 weeks to try to aid recovery of the remaining left renal parenchyma, as well as for patient ??comfort. CRITICAL RESULT: No. COMMUNICATION: The findings were discussed with the patient's family, son Jesus Manuel and daughter Caitlyn, in person after the case. These findings were discussed by executive vice president and chief financial officer Dr. Ramos Wyatt with trauma [facility] ICU member Dr. Shaw at 0755 hours on 10/13/2019. ATTESTATION: Not Applicable. ?? Verified by: DIANDRA BRADEN M.D. on Oct ??9 2020 ??9:35P Transcribed by: PSCB on Oct ??9 2020 ??9:35P Dictated by: DIANDRA BRADEN M.D. on Oct ??6 2 020 ??8:24A Procedure Note Diandra Braden - 12/31/2020 REQUESTING PHYSICIAN: DIANDRA BRADEN REASON FOR EXAMINATION/PROCEDURE: * angiographic eval and embolization of left retroperitoneal bleed EXAMINATION / PROCEDURE: ANGIO NOTIFICATION Oct 13 2019:18; LE FT RENAL 2ND ORDER Oct 13 2019:18; Sedation 1st 15 mins >=5yo Oct 13 2019:18; Sedation ea add 15 mins any age Oct 13 2019:18; Sedation ea add 15 mins any age Oct 13 2019:18; Sedation ea add 15 PROCEDURE(S): * ULTRA SOUND GUIDED ACCESS TO THE RIGHT COMMON FEMORAL ARTERY * ANGIOGRAPHY OF THE RIGHT COMMON FEMORAL ARTERY * AORTOGRAM * SELECTIVE ANGIOGRAPHY OF THE SUPEROPOSTERIOR LEFT RENAL ARTERY * SELECTIVE ANGIOGRAPHY OF THE INFEROANTERIOR LEFT RENAL [place] RY * SELECTIVE ANGIOGRAPHY OF THE INFEROANTERIOR LEFT RENAL ARTERY INFEROMEDIAL SUBSEGMENTAL BRANCH TO LOWER POLE * SELECTIVE ANGIOGRAPHY OF THE INFEROANTERIOR LEFT RENAL ARTERY INFEROLATERAL SUBSEGMENTAL BRANCH TO LOWER POLE * SELECTIVE ANG IOGRAPHY OF THE INFEROANTERIOR LEFT RENAL ARTERY LATERAL INFERIOR SUBSEGMENTAL BRANCH TO LOWER POLE * SELECTIVE ANGIOGRAPHY OF THE INFEROANTERIOR LEFT RENAL ARTERY LATERAL SUPERIOR SUBSEGMENTAL BRANCH TO LOWER POLE * EMBOLIZATION OF THE INFE ROANTERIOR LEFT RENAL ARTERY INFEROLATERAL SUBSEGMENTAL BRANCH TO LOWER POLE * CLOSURE DEVICE USED AT RIGHT COMMON FEMORAL ARTERY * CONSCIOUS SEDATION CLINICAL HISTORY: IR consulted for left renal active extravasation seen on CTA. Pleasant 69 year old woman with intermittent atrial fibrillation who reports starting Xarelto August 2019 and developing left flank pain a few weeks ago. Her left flank pain became intolerable yesterday; no trauma, but she reports a recent and ongoing UTI as well as exercising on her stationary recumbent bicycle; CTA prior to consult showed the left renal active extravasation. She also has Henoch-Schonlein purpura and mild renal insufficiency. No known history of cancer. LOCAL AREA NETWORK ADMINISTRATOR: Diandra Braden M.D. SECONDARY BULL RIDER: Ramos Wyatt M.D. NURSE: See RN note; Prisca. TECH: See Technologist note; Justin. MEDICATIONS: 1% Lidocaine Subcutaneously. Moderate sedation was performed by a trained interventional radiology nurse un cheryl direct physician supervision with 2.5 mg of Versed and 175 mcg fentanyl IV from 0420 hours to 0710 hours. VTE PROPHYLAXIS: None indicated for this ambulatory procedure. ANTIBIOTIC PROPHYLAXIS: None indicated FLUORO TIME/RADIATION DOSE: 31. 8 minutes, Air Kerma of 6707 mGy[place] [address] uGy-m^2 COMPLICATIONS: None immediately. PATIENT CONDITION: Stable. COMPARISON: 02/04/[address] chest, 10/12/2019 outside CTA abdomen/pelvis TECHNIQUE: The patient was identi fied. After the risks and benefits of the procedure were discussed with the patient, an informed written consent was obtained. The patient was then brought back to interventional suite and placed supine on the table. Appropriate time out was per formed to confirm patient identity and planned procedure. The patient was then prepped and draped in the normal sterile fashion. Strict hand hygiene protocol was observed with the operators doing a surgical hand scrub. All personnel in the [facility] were attired in surgical hat and mask. The operators were in surgical hat, mask, sterile gloves and gowns. The sites were prepped with 2% chlorhexidine for cutaneous antisepsis, followed by sterile barrier draping. Conscious sedation was initi ated. AORTOGRAM AND LEFT RENAL ARTERIOGRAPHY AND EMBOLIZATION: The right common femoral artery was accessed with a micropuncture set. A 5 Fr vascular sheath was then placed within the artery. A DSA (Digital Subtraction Angiography) was perfo rmed through the sheath in the common femoral artery. Over an 0.035 in guidewire, a 5 [place] Contra 2 was not successful at selecting the left renal arteries, and so a 5 [place] Omniflush was advanced to T12, above the renal arteries. Aortogram s howed the locations of the two left renal arteries, superoposterior and anteroinferior, and no active extravasation, blush, or pseudoaneurysm was seen. Then, the Omniflush was exchanged for the Contra 2 catheter which was advanced into the lef t superoposterior renal artery; DSA showed no active extravasation, blush, or pseudoaneurysm. After further more peripheral selection of the main branch of the left superoposterior renal artery with the Progreat microcatheter, still no active ex travasation, blush, or pseudoaneurysm was seen. Therefore, the Contra 2 was used to select the left anteroinferior renal artery; DSA showed at least 4-5 sites of active extravasation at the mid to lower renal pole, of varying severity. After p lacement of the Progreat microcatheter more peripherally in the main branch of the left anteroinferior renal artery, it was noted that the greatest extravasation was from the inferoanterior left renal artery inferolateral subsegmental branch to the lower pole, with a bare spot in this region of the lower pole, in keeping with a known renal cyst, which previously measured simple fluid density on 02/04/[address] chest but measured blood density on 10/12/2019 outside CTA abdomen/ pelvis. It was attempted to select this branch with a microcatheter, but first selected was the inferoanterior left renal artery inferomedial subsegmental branch to lower pole; DSA at this branch showed no active extravasation, blush, or pseudoa neurysm at these terminal branches, but did show active extravasation upon reflux into the targeted branch. Next, the targeted branch--the inferoanterior left renal artery inferolateral subsegmental branch to lower pole--was selected, with DSA confirming prompt active extravasation. The vessel was more peripherally selected to spare as much non-target renal parenchyma as possible, and satisfactory position was confirmed on DSA; this branch was embolized to stasis with [place]. Post embo lization DSA of the left anteroinferior renal artery through the Contra 2 demonstrated no active extravasation, blush, or pseudoaneurysm at the target vessel, with slightly enlarged area of parenchymal non-filling defect, in keeping with embol ization of this renal sub-segment. Post-embolization DSA also showed additional 3 areas of slow-flow active extravasation at branches involving about 50% of the left renal parenchyma. Branches supplying the largest of these--the inferoanterior l eft renal artery lateral inferior subsegmental branch to lower pole and the inferoanterior left renal artery lateral superior subsegmental branch to lower pole--were serially selected, but DSA confirmed that the active extravasation was slow-tam w. Given these findings, it was decided that the risk of harm to the [place] renal parenchyma in this patient with existing renal insufficiency exceeded the likely gain from embolization at this time. All catheters were removed. The vascular s cyril was removed. AngioSeal VIP was used for vascular closure with no hematoma. A sterile dressing was placed. The patient tolerated the procedure well, with no immediate complication. The patient was transferred to recovery in stable condit ion. The findings were discussed with the patient's family, son Jesus Manuel and daughter Caitlyn, in person after the case. These findings were discussed by executive vice president and chief financial officer Dr. Ramos Wyatt with trauma surgery ICU member Dr. Shaw at 0755 hours on . FINDINGS: As above. IMPRESSION: 1. Two left renal arteries; active extravasation of varying degree from mid to lower pole multiple branches (4-5) of the anteroinferior left renal artery. 2. Successful angiography and emboliz ation of the site of brisk active extravasation--possibly bleeding into her known left renal cyst--at the inferoanterior left renal artery inferolateral subsegmental branch to lower pole. 3. Other sites of active extravasation were noted to be slow-flow, with the two most suspicious sites interrogated and this finding confirmed on DSA. 4. Given these findings, it was decided that the risk of harm to the [place] renal parenchyma in this patient with existing renal insufficiency exc eeded the likely gain from embolization of multiple sites at thistime. RECOMMENDATIONS: * Given the embolization of the major site of active extravasation (left renal artery, lower pole branch, inferoanterior left renal artery inferolateral subsegmental branch to lower pole) but non-embolization of other sites of slow-flow active extravasation in order to spare renal parenchyma, IR recommendation is to not restart anticoagulation/antiplatelets except under very close monitoring and with a low threshold to discontinue them. * Per her family, the patient's Xarelto is for treating atrial fibrillation which is intermittent. It may be helpful to explore other options for decreasing stroke risk, such as cardiac ablation and/ or left atrial appendage closure. * This patient has a difficult situation. Any future anticoagulation/antiplatelets must be carefully weighed against her bleeding risk--particularly as noted at this left kidney--and potential further loss of renal parenchyma and renal function if additional renal tissue must be sacrificed by embolization. * MRI renal lesion protocol without and with IV contrast, perhaps in a day or two post-procedure, will likely be helpful to assess for any un derlying occult renal mass. * If the patient remains hemodynamically stable, the large perirenal hematoma can be percutaneously drained after about 2-3 weeks to try to aid recovery of the remaining left renal parenchyma, as well as for patient comfort. CRITICAL RESULT: No. COMMUNICATION: The findings were discussed with the patient's family, son Jesus Manuel and daughter Caitlyn, in person after the case. These findings were discussed by executive vice president and chief financial officer Dr. Ramos Wyatt with trauma [facility] ICU member Dr. Shaw at 0755 hours on 10/13/2019. ATTESTATION: Not Applicable. Verified by: DIANDRA BRADEN M.D. on Oct 16 2019 9:35P Transcribed by: PSCB on Oct 16 2019 9:35P Dictated by: DIANDRA BRADEN M.D. on Oct 13 2 020 8:24A us Diandra Braden MD IMG IR PROCEDURES Final R esult * IR VIR HISTORICAL (10/13/2019 7:18 AM EST) Anatomical Region Laterality Modality X-Ray Angiograph y Narrative 10/16/2019 9:36 PM EST REQUESTING PHYSICIAN: DIANDRA BRADEN REASON FOR EXAMINATION/PROCEDURE: ?? * ??angiographic eval and embolization of left retroperitoneal bleed EXAMINATION / PROCEDURE: ANGIO NOTIFICATION Feb ??6 201918; LE FT RENAL 2ND ORDER Feb ??6 2019:18; Sedation 1st 15 mins >=5yo Feb ??6 2019:18; Sedation ea add 15 mins any age Feb ??6 201918; Sedation ea add 15 mins any age Feb ?? 6 201918; Sedation ea add 15 ? PROCEDURE(S): ?? * ??ULTRA SOUND GUIDED ACCESS TO THE RIGHT COMMON FEMORAL ARTERY * ??ANGIOGRAPHY OF THE RIGHT COMMON FEMORAL ARTERY * ??AORTOGRAM * ??SELECTIVE ANGIOGRAPHY OF THE SUPEROPOSTERIOR LEFT RENAL ARTERY * ??SELECTIVE ANGIOGRAPHY OF THE INFEROANTERIOR LEFT RENAL [place]INO RY * ??SELECTIVE ANGIOGRAPHY OF THE INFEROANTERIOR LEFT RENAL ARTERY INFEROMEDIAL SUBSEGMENTAL BRANCH TO LOWER POLE * ??SELECTIVE ANGIOGRAPHY OF THE INFEROANTERIOR LEFT RENAL ARTERY INFEROLATERAL SUBSEGMENTAL BRANCH TO LOWER POLE * ??SELECTIVE ANG IOGRAPHY OF THE INFEROANTERIOR LEFT RENAL ARTERY LATERAL INFERIOR SUBSEGMENTAL BRANCH TO LOWER POLE * ??SELECTIVE ANGIOGRAPHY OF THE INFEROANTERIOR LEFT RENAL ARTERY LATERAL SUPERIOR SUBSEGMENTAL BRANCH TO LOWER POLE * ??EMBOLIZATION OF THE INFE ROANTERIOR LEFT RENAL ARTERY INFEROLATERAL SUBSEGMENTAL BRANCH TO LOWER POLE * ??CLOSURE DEVICE USED AT RIGHT COMMON FEMORAL ARTERY * ??CONSCIOUS SEDATION CLINICAL HISTORY: ??IR consulted for left renal active extravasation seen on CTA. Pleasant ??69 year old woman with intermittent atrial fibrillation who reports starting Xarelto August 2019 and developing left flank pain a few weeks ago. Her left flank pain became intolerable yesterday; no trauma, but she reports a recent and ongoing ??UTI as well as exercising on her stationary recumbent bicycle; CTA prior to consult showed the left renal active extravasation. She also has Henoch-Schonlein purpura and mild renal insufficiency. No known history of cancer. LOCAL AREA NETWORK ADMINISTRATOR: ??Diandra Braden M.D. SECONDARY BULL RIDER: Ramos Wyatt M.D. NURSE: See RN note; Prisca. TECH: See Technologist note; Justin. MEDICATIONS: 1% Lidocaine Subcutaneously. Moderate sedation was performed by a trained interventional radiology nurse un cheryl direct physician supervision with 2.5 mg of Versed and 175 mcg fentanyl IV from 0420 hours to 0710 hours. VTE PROPHYLAXIS: None indicated for this ambulatory procedure. ANTIBIOTIC PROPHYLAXIS: None indicated FLUORO TIME/RADIATION DOSE: 31. 8 minutes, Air Kerma of 6707 mGy[place] [address] uGy-m^2 COMPLICATIONS: ??None immediately. PATIENT CONDITION: ??Stable. COMPARISON: ??02/04/[address] chest, 10/12/2019 outside CTA abdomen/pelvis TECHNIQUE: ?? The patient was identi fied. After the risks and benefits of the procedure were discussed with the patient, an informed written consent was obtained. The patient was then brought back to interventional suite and placed supine on the table. Appropriate time out was per formed to confirm patient identity and planned procedure. The patient was then prepped and draped in the normal sterile fashion. Strict hand hygiene protocol was observed with the operators doing a surgical hand scrub. All personnel in the [facility] were attired in surgical hat and mask. The operators were in surgical hat, mask, sterile gloves and gowns. The sites were prepped with 2% chlorhexidine for cutaneous antisepsis, followed by sterile barrier draping. Conscious sedation was initi ated. ?? AORTOGRAM AND LEFT RENAL ARTERIOGRAPHY AND EMBOLIZATION: The right common femoral artery was accessed with a micropuncture set. A 5 Fr vascular sheath was then placed within the artery. A DSA (Digital Subtraction Angiography) was perfo rmed through the sheath in the common femoral artery. Over an 0.035 in guidewire, a 5 [place] Contra 2 was not successful at selecting the left renal arteries, and so a 5 [place] Omniflush was advanced to T12, above the renal arteries. Aortogram s howed the locations of the two left renal arteries, superoposterior and anteroinferior, and no active extravasation, blush, or pseudoaneurysm was seen. Then, the Omniflush was exchanged for the Contra 2 catheter which was advanced into the lef t superoposterior renal artery; DSA showed no active extravasation, blush, or pseudoaneurysm. After further more peripheral selection of the main branch of the left superoposterior renal artery with the Progreat microcatheter, still no active ex travasation, blush, or pseudoaneurysm was seen. Therefore, the Contra 2 was used to select the left anteroinferior renal artery; DSA showed at least 4-5 sites of active extravasation at the mid to lower renal pole, of varying severity. After p lacement of the Progreat microcatheter more peripherally in the main branch of the left anteroinferior renal artery, it was noted that the greatest extravasation was from the inferoanterior left renal artery inferolateral subsegmental branch to the lower pole, with a bare spot in this region of the lower pole, in keeping with a known renal cyst, which previously measured simple fluid density on 02/04/[address] chest but measured blood density on 10/12/2019 outside CTA abdomen/ pelvis. It was attempted to select this branch with a microcatheter, but first selected was the inferoanterior left renal artery inferomedial subsegmental branch to lower pole; DSA at this branch showed no active extravasation, blush, or pseudoa neurysm at these terminal branches, but did show active extravasation upon reflux into the targeted branch. Next, the targeted branch--the inferoanterior left renal artery inferolateral subsegmental branch to lower pole--was selected, with DSA ??confirming prompt active extravasation. The vessel was more peripherally selected to spare as much non-target renal parenchyma as possible, and satisfactory position was confirmed on DSA; this branch was embolized to stasis with [place]. Post embo lization DSA of the left anteroinferior renal artery through the Contra 2 demonstrated no active extravasation, blush, or pseudoaneurysm at the target vessel, with slightly enlarged area of parenchymal non-filling defect, in keeping with embol ization of this renal sub-segment. Post-embolization DSA also showed additional 3 areas of slow-flow active extravasation at branches involving about 50% of the left renal parenchyma. Branches supplying the largest of these--the inferoanterior l eft renal artery lateral inferior subsegmental branch to lower pole and the inferoanterior left renal artery lateral superior subsegmental branch to lower pole--were serially selected, but DSA confirmed that the active extravasation was slow-tam w. Given these findings, it was decided that the risk of harm to the [place] renal parenchyma in this patient with existing renal insufficiency exceeded the likely gain from embolization at this time. All catheters were removed. The vascular s cyril was removed. AngioSeal VIP was used for vascular closure with no hematoma. A sterile dressing was placed. The patient tolerated the procedure well, with no immediate complication. The patient was transferred to recovery in stable condit ion. The findings were discussed with the patient's family, son Jesus Manuel and daughter Caitlyn, in person after the case. These findings were discussed by executive vice president and chief financial officer Dr. Ramos Wyatt with trauma surgery ICU member Dr. Shaw at 0755 hours on . FINDINGS: As above. ?? IMPRESSION: 1. ??Two left renal arteries; active extravasation of varying degree from mid to lower pole multiple branches (4-5) of the anteroinferior left renal artery. 2. ??Successful angiography and emboliz ation of the site of brisk active extravasation--possibly bleeding into her known left renal cyst--at the inferoanterior left renal artery inferolateral subsegmental branch to lower pole. 3. ??Other sites of active extravasation were noted to be ??slow-flow, with the two most suspicious sites interrogated and this finding confirmed on DSA. 4. ??Given these findings, it was decided that the risk of harm to the [place] renal parenchyma in this patient with existing renal insufficiency exc eeded the likely gain from embolization of multiple sites at this time. RECOMMENDATIONS: * ??Given the embolization of the major site of active extravasation (left renal artery, lower pole branch, inferoanterior left renal artery inferolateral subsegmental branch to lower pole) but non-embolization of other sites of slow-flow active extravasation in order to spare renal parenchyma, IR recommendation is to not restart anticoagulation/antiplatelets except under very close monitoring and ??with a low threshold to discontinue them. * ??Per her family, the patient's Xarelto is for treating atrial fibrillation which is intermittent. It may be helpful to explore other options for decreasing stroke risk, such as cardiac ablation and/ or left atrial appendage closure. * ??This patient has a difficult situation. Any future anticoagulation/antiplatelets must be carefully weighed against her bleeding risk--particularly as noted at this left kidney--and potential further loss of renal parenchyma and renal function if additional renal tissue must be sacrificed by embolization. * ??MRI renal lesion protocol without and with IV contrast, perhaps in a day or two post-procedure, will likely be helpful to assess for any un derlying occult renal mass. * ??If the patient remains hemodynamically stable, the large perirenal hematoma can be percutaneously drained after about 2-3 weeks to try to aid recovery of the remaining left renal parenchyma, as well as for patient ??comfort. CRITICAL RESULT: No. COMMUNICATION: The findings were discussed with the patient's family, son Jesus Manuel and daughter Caitlyn, in person after the case. These findings were discussed by executive vice president and chief financial officer Dr. Ramos Wyatt with trauma [facility] ICU member Dr. Shaw at 0755 hours on 10/13/2019. ATTESTATION: Not Applicable. ?? Verified by: DIANDRA BRADEN M.D. on Oct ??2019 ??9:35P Transcribed by: [facility] on Oct ??9 2020 ??9:35P Dictated by: DIANDRA BRADEN M.D. on Oct ??6 2 020 ??8:24A Procedure Note Asiya Diandra Sydnie - 12/31/2020 REQUESTING PHYSICIAN: DIANDRA BRADEN REASON FOR EXAMINATION/PROCEDURE: * angiographic eval and embolization of left retroperitoneal bleed EXAMINATION / PROCEDURE: ANGIO NOTIFICATION Oct 13 2019:18; LE FT RENAL 2ND ORDER Oct 13 201918; Sedation 1st 15 mins >=5yo Oct 13 201918; Sedation ea add 15 mins any age Oct 13 201918; Sedation ea add 15 mins any age Oct 13 201918; Sedation ea add 15 PROCEDURE(S): * ULTRA SOUND GUIDED ACCESS TO THE RIGHT COMMON FEMORAL ARTERY * ANGIOGRAPHY OF THE RIGHT COMMON FEMORAL ARTERY * AORTOGRAM * SELECTIVE ANGIOGRAPHY OF THE SUPEROPOSTERIOR LEFT RENAL ARTERY * SELECTIVE ANGIOGRAPHY OF THE INFEROANTERIOR LEFT RENAL ALVINO RY * SELECTIVE ANGIOGRAPHY OF THE INFEROANTERIOR LEFT RENAL ARTERY INFEROMEDIAL SUBSEGMENTAL BRANCH TO LOWER POLE * SELECTIVE ANGIOGRAPHY OF THE INFEROANTERIOR LEFT RENAL ARTERY INFEROLATERAL SUBSEGMENTAL BRANCH TO LOWER POLE * SELECTIVE ANG IOGRAPHY OF THE INFEROANTERIOR LEFT RENAL ARTERY LATERAL INFERIOR SUBSEGMENTAL BRANCH TO LOWER POLE * SELECTIVE ANGIOGRAPHY OF THE INFEROANTERIOR LEFT RENAL ARTERY LATERAL SUPERIOR SUBSEGMENTAL BRANCH TO LOWER POLE * EMBOLIZATION OF THE INFE ROANTERIOR LEFT RENAL ARTERY INFEROLATERAL SUBSEGMENTAL BRANCH TO LOWER POLE * CLOSURE DEVICE USED AT RIGHT COMMON FEMORAL ARTERY * CONSCIOUS SEDATION CLINICAL HISTORY: IR consulted for left renal active extravasation seen on CTA. Pleasant 69 year old woman with intermittent atrial fibrillation who reports starting Xarelto August 2019 and developing left flank pain a few weeks ago. Her left flank pain became intolerable yesterday; no trauma, but she reports a recent and ongoing UTI as well as exercising on her stationary recumbent bicycle; CTA prior to consult showed the left renal active extravasation. She also has Henoch-Schonlein purpura and mild renal insufficiency. No known history of cancer. LOCAL AREA NETWORK ADMINISTRATOR: Diandra Braden M.D. SECONDARY BULL RIDER: Ramos Wyatt M.D. NURSE: See RN note; TECH: See Technologist note; Justin. MEDICATIONS: 1% Lidocaine Subcutaneously. Moderate sedation was performed by a trained interventional radiology nurse un cheryl direct physician supervision with 2.5 mg of Versed and 175 mcg fentanyl IV from 0420 hours to 0710 hours. VTE PROPHYLAXIS: None indicated for this ambulatory procedure. ANTIBIOTIC PROPHYLAXIS: None indicated FLUORO TIME/RADIATION DOSE: 31. 8 minutes, Air Kerma of 6707 mGy[place] [address] uGy-m^2 COMPLICATIONS: None immediately. PATIENT CONDITION: Stable. COMPARISON: 02/04/[address] chest, 10/12/2019 outside CTA abdomen/pelvis TECHNIQUE: The patient was identi fied. After the risks and benefits of the procedure were discussed with the patient, an informed written consent was obtained. The patient was then brought back to interventional suite and placed supine on the table. Appropriate time out was per formed to confirm patient identity and planned procedure. The patient was then prepped and draped in the normal sterile fashion. Strict hand hygiene protocol was observed with the operators doing a surgical hand scrub. All personnel in the renea m were attired in surgical hat and mask. The operators were in surgical hat, mask, sterile gloves and gowns. The sites were prepped with 2% chlorhexidine for cutaneous antisepsis, followed by sterile barrier draping. Conscious sedation was initi ated. AORTOGRAM AND LEFT RENAL ARTERIOGRAPHY AND EMBOLIZATION: The right common femoral artery was accessed with a micropuncture set. A 5 Fr vascular sheath was then placed within the artery. A DSA (Digital Subtraction Angiography) was perfo rmed through the sheath in the common femoral artery. Over an 0.035 in guidewire, a 5 [place] Contra 2 was not successful at selecting the left renal arteries, and so a 5 [place] Omniflush was advanced to T12, above the renal arteries. Aortogram s howed the locations of the two left renal arteries, superoposterior and anteroinferior, and no active extravasation, blush, or pseudoaneurysm was seen. Then, the Omniflush was exchanged for the Contra 2 catheter which was advanced into the lef t superoposterior renal artery; DSA showed no active extravasation, blush, or pseudoaneurysm. After further more peripheral selection of the main branch of the left superoposterior renal artery with the Progreat microcatheter, still no active ex travasation, blush, or pseudoaneurysm was seen. Therefore, the Contra 2 was used to select the left anteroinferior renal artery; DSA showed at least 4-5 sites of active extravasation at the mid to lower renal pole, of varying severity. After p lacement of the Progreat microcatheter more peripherally in the main branch of the left anteroinferior renal artery, it was noted that the greatest extravasation was from the inferoanterior left renal artery inferolateral subsegmental branch to the lower pole, with a bare spot in this region of the lower pole, in keeping with a known renal cyst, which previously measured simple fluid density on 02/04/[address] chest but measured blood density on 10/12/2019 outside CTA abdomen/ pelvis. It was attempted to select this branch with a microcatheter, but first selected was the inferoanterior left renal artery inferomedial subsegmental branch to lower pole; DSA at this branch showed no active extravasation, blush, or pseudoa neurysm at these terminal branches, but did show active extravasation upon reflux into the targeted branch. Next, the targeted branch--the inferoanterior left renal artery inferolateral subsegmental branch to lower pole--was selected, with DSA confirming prompt active extravasation. The vessel was more peripherally selected to spare as much non-target renal parenchyma as possible, and satisfactory position was confirmed on DSA; this branch was embolized to stasis with Mc. Post embo lization DSA of the left anteroinferior renal artery through the Contra 2 demonstrated no active extravasation, blush, or pseudoaneurysm at the target vessel, with slightly enlarged area of parenchymal non-filling defect, in keeping with embol ization of this renal sub-segment. Post-embolization DSA also showed additional 3 areas of slow-flow active extravasation at branches involving about 50% of the left renal parenchyma. Branches supplying the largest of these--the inferoanterior l eft renal artery lateral inferior subsegmental branch to lower pole and the inferoanterior left renal artery lateral superior subsegmental branch to lower pole--were serially selected, but DSA confirmed that the active extravasation was slow-tam w. Given these findings, it was decided that the risk of harm to the [place] renal parenchyma in this patient with existing renal insufficiency exceeded the likely gain from embolization at this time. All catheters were removed. The vascular s cyril was removed. AngioSeal VIP was used for vascular closure with no hematoma. A sterile dressing was placed. The patient tolerated the procedure well, with no immediate complication. The patient was transferred to recovery in stable condit ion. The findings were discussed with the patient's family, son Jesus Manuel and daughter Caitlyn, in person after the case. These findings were discussed by executive vice president and chief financial officer Dr. Ramos Wyatt with trauma surgery ICU member Dr. Shaw at 0755 hours on . FINDINGS: As above. IMPRESSION: 1. Two left renal arteries; active extravasation of varying degree from mid to lower pole multiple branches (4-5) of the anteroinferior left renal artery. 2. Successful angiography and emboliz ation of the site of brisk active extravasation--possibly bleeding into her known left renal cyst--at the inferoanterior left renal artery inferolateral subsegmental branch to lower pole. 3. Other sites of active extravasation were noted to be slow-flow, with the two most suspicious sites interrogated and this finding confirmed on DSA. 4. Given these findings, it was decided that the risk of harm to the [place] renal parenchyma in this patient with existing renal insufficiency exc eeded the likely gain from embolization of multiple sites at thistime. RECOMMENDATIONS: * Given the embolization of the major site of active extravasation (left renal artery, lower pole branch, inferoanterior left renal artery inferolateral subsegmental branch to lower pole) but non-embolization of other sites of slow-flow active extravasation in order to spare renal parenchyma, IR recommendation is to not restart anticoagulation/antiplatelets except under very close monitoring and with a low threshold to discontinue them. * Per her family, the patient's Xarelto is for treating atrial fibrillation which is intermittent. It may be helpful to explore other options for decreasing stroke risk, such as cardiac ablation and/ or left atrial appendage closure. * This patient has a difficult situation. Any future anticoagulation/antiplatelets must be carefully weighed against her bleeding risk--particularly as noted at this left kidney--and potential further loss of renal parenchyma and renal function if additional renal tissue must be sacrificed by embolization. * MRI renal lesion protocol without and with IV contrast, perhaps in a day or two post-procedure, will likely be helpful to assess for any un derlying occult renal mass. * If the patient remains hemodynamically stable, the large perirenal hematoma can be percutaneously drained after about 2-3 weeks to try to aid recovery of the remaining left renal parenchyma, as well as for patient comfort. CRITICAL RESULT: No. COMMUNICATION: The findings were discussed with the patient's family, son Jesus Manuel and daughter Caitlyn, in person after the case. These findings were discussed by executive vice president and chief financial officer Dr. Ramos Wyatt with trauma [facility] ICU member Dr. Shaw at 0755 hours on 10/13/2019. ATTESTATION: Not Applicable. Verified by: DIANDRA BRADEN M.D. on Oct 16 2019 9:35P Transcribed by: [facility] on Oct 16 2019 9:35P Dictated by: DIANDRA BRADEN M.D. on Oct 13 020 8:24A us Diandra Braden MD IMG IR PROCEDURES Final R esult * IR VIR HISTORICAL (10/13/2019 7:18 AM EST) Anatomical Region Laterality Modality X-Ray Angiograph y Narrative 10/16/2019 9:36 PM EST REQUESTING PHYSICIAN: DIANDRA BRADEN REASON FOR EXAMINATION/PROCEDURE: ?? * ??angiographic eval and embolization of left retroperitoneal bleed EXAMINATION / PROCEDURE: ANGIO NOTIFICATION Feb ??6 2019 - 07:18; LE FT RENAL 2ND ORDER Feb ??6 2019:18; Sedation 1st 15 mins >=5yo Feb ??6 2019:18; Sedation ea add 15 mins any age Feb ??6 2019 07:18; Sedation ea add 15 mins any age Feb ?? 6 2019 - 07:18; Sedation ea add 15 ? PROCEDURE(S): ?? * ??ULTRA SOUND GUIDED ACCESS TO THE RIGHT COMMON FEMORAL ARTERY * ??ANGIOGRAPHY OF THE RIGHT COMMON FEMORAL ARTERY * ??AORTOGRAM * ??SELECTIVE ANGIOGRAPHY OF THE SUPEROPOSTERIOR LEFT RENAL ARTERY * ??SELECTIVE ANGIOGRAPHY OF THE INFEROANTERIOR LEFT RENAL ALVINO RY * ??SELECTIVE ANGIOGRAPHY OF THE INFEROANTERIOR LEFT RENAL ARTERY INFEROMEDIAL SUBSEGMENTAL BRANCH TO LOWER POLE * ??SELECTIVE ANGIOGRAPHY OF THE INFEROANTERIOR LEFT RENAL ARTERY INFEROLATERAL SUBSEGMENTAL BRANCH TO LOWER POLE * ??SELECTIVE ANG IOGRAPHY OF THE INFEROANTERIOR LEFT RENAL ARTERY LATERAL INFERIOR SUBSEGMENTAL BRANCH TO LOWER POLE * ??SELECTIVE ANGIOGRAPHY OF THE INFEROANTERIOR LEFT RENAL ARTERY LATERAL SUPERIOR SUBSEGMENTAL BRANCH TO LOWER POLE * ??EMBOLIZATION OF THE INFE ROANTERIOR LEFT RENAL ARTERY INFEROLATERAL SUBSEGMENTAL BRANCH TO LOWER POLE * ??CLOSURE DEVICE USED AT RIGHT COMMON FEMORAL ARTERY * ??CONSCIOUS SEDATION CLINICAL HISTORY: ??IR consulted for left renal active extravasation seen on CTA. Pleasant ??69 year old woman with intermittent atrial fibrillation who reports starting Xarelto August 2019 and developing left flank pain a few weeks ago. Her left flank pain became intolerable yesterday; no trauma, but she reports a recent and ongoing ??UTI as well as exercising on her stationary recumbent bicycle; CTA prior to consult showed the left renal active extravasation. She also has Henoch-Schonlein purpura and mild renal insufficiency. No known history of cancer. LOCAL AREA NETWORK ADMINISTRATOR: ??Diandra Braden M.D. SECONDARY BULL RIDER: Ramos Wyatt M.D. NURSE: See RN note; Prisca. TECH: See Technologist note; Justin. MEDICATIONS: 1% Lidocaine Subcutaneously. Moderate sedation was performed by a trained interventional radiology nurse un cheryl direct physician supervision with 2.5 mg of Versed and 175 mcg fentanyl IV from 0420 hours to 0710 hours. VTE PROPHYLAXIS: None indicated for this ambulatory procedure. ANTIBIOTIC PROPHYLAXIS: None indicated FLUORO TIME/RADIATION DOSE: 31. 8 minutes, Air Kerma of 6707 [place] [address] uGy-m^2 COMPLICATIONS: ??None immediately. PATIENT CONDITION: ??Stable. COMPARISON: ??02/04/[address] chest, 10/12/2019 outside CTA abdomen/pelvis TECHNIQUE: ?? The patient was identi fied. After the risks and benefits of the procedure were discussed with the patient, an informed written consent was obtained. The patient was then brought back to interventional suite and placed supine on the table. Appropriate time out was per formed to confirm patient identity and planned procedure. The patient was then prepped and draped in the normal sterile fashion. Strict hand hygiene protocol was observed with the operators doing a surgical hand scrub. All personnel in the renea m were attired in surgical hat and mask. The operators were in surgical hat, mask, sterile gloves and gowns. The sites were prepped with 2% chlorhexidine for cutaneous antisepsis, followed by sterile barrier draping. Conscious sedation was initi ated. ?? AORTOGRAM AND LEFT RENAL ARTERIOGRAPHY AND EMBOLIZATION: The right common femoral artery was accessed with a micropuncture set. A 5 Fr vascular sheath was then placed within the artery. A DSA (Digital Subtraction Angiography) was perfo rmed through the sheath in the common femoral artery. Over an 0.035 in guidewire, a 5 [place] Contra 2 was not successful at selecting the left renal arteries, and so a 5 [place] Omniflush was advanced to T12, above the renal arteries. Aortogram s howed the locations of the two left renal arteries, superoposterior and anteroinferior, and no active extravasation, blush, or pseudoaneurysm was seen. Then, the Omniflush was exchanged for the Contra 2 catheter which was advanced into the lef t superoposterior renal artery; DSA showed no active extravasation, blush, or pseudoaneurysm. After further more peripheral selection of the main branch of the left superoposterior renal artery with the Progreat microcatheter, still no active ex travasation, blush, or pseudoaneurysm was seen. Therefore, the Contra 2 was used to select the left anteroinferior renal artery; DSA showed at least 4-5 sites of active extravasation at the mid to lower renal pole, of varying severity. After p lacement of the Progreat microcatheter more peripherally in the main branch of the left anteroinferior renal artery, it was noted that the greatest extravasation was from the inferoanterior left renal artery inferolateral subsegmental branch to the lower pole, with a bare spot in this region of the lower pole, in keeping with a known renal cyst, which previously measured simple fluid density on 02/04/[address] chest but measured blood density on 10/12/2019 outside CTA abdomen/ pelvis. It was attempted to select this branch with a microcatheter, but first selected was the inferoanterior left renal artery inferomedial subsegmental branch to lower pole; DSA at this branch showed no active extravasation, blush, or pseudoa neurysm at these terminal branches, but did show active extravasation upon reflux into the targeted branch. Next, the targeted branch--the inferoanterior left renal artery inferolateral subsegmental branch to lower pole--was selected, with DSA ??confirming prompt active extravasation. The vessel was more peripherally selected to spare as much non-target renal parenchyma as possible, and satisfactory position was confirmed on DSA; this branch was embolized to stasis with Mc. Post embo lization DSA of the left anteroinferior renal artery through the Contra 2 demonstrated no active extravasation, blush, or pseudoaneurysm at the target vessel, with slightly enlarged area of parenchymal non-filling defect, in keeping with embol ization of this renal sub-segment. Post-embolization DSA also showed additional 3 areas of slow-flow active extravasation at branches involving about 50% of the left renal parenchyma. Branches supplying the largest of these--the inferoanterior l eft renal artery lateral inferior subsegmental branch to lower pole and the inferoanterior left renal artery lateral superior subsegmental branch to lower pole--were serially selected, but DSA confirmed that the active extravasation was slow-tam w. Given these findings, it was decided that the risk of harm to the [place] renal parenchyma in this patient with existing renal insufficiency exceeded the likely gain from embolization at this time. All catheters were removed. The vascular s cyril was removed. AngioSeal VIP was used for vascular closure with no hematoma. A sterile dressing was placed. The patient tolerated the procedure well, with no immediate complication. The patient was transferred to recovery in stable condit ion. The findings were discussed with the patient's family, son Jesus Manuel and daughter Caitlyn, in person after the case. These findings were discussed by executive vice president and chief financial officer Dr. Ramos Wyatt with trauma surgery ICU member Dr. Shaw at 0755 hours on . FINDINGS: As above. ?? IMPRESSION: 1. ??Two left renal arteries; active extravasation of varying degree from mid to lower pole multiple branches (4-5) of the anteroinferior left renal artery. 2. ??Successful angiography and emboliz ation of the site of brisk active extravasation--possibly bleeding into her known left renal cyst--at the inferoanterior left renal artery inferolateral subsegmental branch to lower pole. 3. ??Other sites of active extravasation were noted to be ??slow-flow, with the two most suspicious sites interrogated and this finding confirmed on DSA. 4. ??Given these findings, it was decided that the risk of harm to the [place] renal parenchyma in this patient with existing renal insufficiency exc eeded the likely gain from embolization of multiple sites at this time. RECOMMENDATIONS: * ??Given the embolization of the major site of active extravasation (left renal artery, lower pole branch, inferoanterior left renal artery inferolateral subsegmental branch to lower pole) but non-embolization of other sites of slow-flow active extravasation in order to spare renal parenchyma, IR recommendation is to not restart anticoagulation/antiplatelets except under very close monitoring and ??with a low threshold to discontinue them. * ??Per her family, the patient's Xarelto is for treating atrial fibrillation which is intermittent. It may be helpful to explore other options for decreasing stroke risk, such as cardiac ablation and/ or left atrial appendage closure. * ??This patient has a difficult situation. Any future anticoagulation/antiplatelets must be carefully weighed against her bleeding risk--particularly as noted at this left kidney--and potential further loss of renal parenchyma and renal function if additional renal tissue must be sacrificed by embolization. * ??MRI renal lesion protocol without and with IV contrast, perhaps in a day or two post-procedure, will likely be helpful to assess for any un derlying occult renal mass. * ??If the patient remains hemodynamically stable, the large perirenal hematoma can be percutaneously drained after about 2-3 weeks to try to aid recovery of the remaining left renal parenchyma, as well as for patient ??comfort. CRITICAL RESULT: No. COMMUNICATION: The findings were discussed with the patient's family, son Jesus Manuel and daughter Caitlyn, in person after the case. These findings were discussed by executive vice president and chief financial officer Dr. Ramos Wyatt with trauma [facility] ICU member Dr. Shaw at 0755 hours on 10/13/2019. ATTESTATION: Not Applicable. ?? Verified by: DIANDRA BRADEN M.D. on Oct ??9 2019 ??9:35P Transcribed by: [facility] on Oct ??2019 ??9:35P Dictated by: DIANDRA BRADEN M.D. on Oct ??6 2 020 ??8:24A Procedure Note Diandra [place] - 12/31/2020 REQUESTING PHYSICIAN: DIANDRA BRADEN REASON FOR EXAMINATION/PROCEDURE: * angiographic eval and embolization of left retroperitoneal bleed EXAMINATION / PROCEDURE: ANGIO NOTIFICATION Oct 13 201918; LE FT RENAL 2ND ORDER Oct 13 201918; Sedation 1st 15 mins >=5yo Oct 13 201918; Sedation ea add 15 mins any age Oct 13 201918; Sedation ea add 15 mins any age Oct 13 201918; Sedation ea add 15 PROCEDURE(S): * ULTRA SOUND GUIDED ACCESS TO THE RIGHT COMMON FEMORAL ARTERY * ANGIOGRAPHY OF THE RIGHT COMMON FEMORAL ARTERY * AORTOGRAM * SELECTIVE ANGIOGRAPHY OF THE SUPEROPOSTERIOR LEFT RENAL ARTERY * SELECTIVE ANGIOGRAPHY OF THE INFEROANTERIOR LEFT RENAL ALVINO RY * SELECTIVE ANGIOGRAPHY OF THE INFEROANTERIOR LEFT RENAL ARTERY INFEROMEDIAL SUBSEGMENTAL BRANCH TO LOWER POLE * SELECTIVE ANGIOGRAPHY OF THE INFEROANTERIOR LEFT RENAL ARTERY INFEROLATERAL SUBSEGMENTAL BRANCH TO LOWER POLE * SELECTIVE ANG IOGRAPHY OF THE INFEROANTERIOR LEFT RENAL ARTERY LATERAL INFERIOR SUBSEGMENTAL BRANCH TO LOWER POLE * SELECTIVE ANGIOGRAPHY OF THE INFEROANTERIOR LEFT RENAL ARTERY LATERAL SUPERIOR SUBSEGMENTAL BRANCH TO LOWER POLE * EMBOLIZATION OF THE INFE ROANTERIOR LEFT RENAL ARTERY INFEROLATERAL SUBSEGMENTAL BRANCH TO LOWER POLE * CLOSURE DEVICE USED AT RIGHT COMMON FEMORAL ARTERY * CONSCIOUS SEDATION CLINICAL HISTORY: IR consulted for left renal active extravasation seen on CTA. Pleasant 69 year old woman with intermittent atrial fibrillation who reports starting Xarelto August 2019 and developing left flank pain a few weeks ago. Her left flank pain became intolerable yesterday; no trauma, but she reports a recent and ongoing UTI as well as exercising on her stationary recumbent bicycle; CTA prior to consult showed the left renal active extravasation. She also has Henoch-Schonlein purpura and mild renal insufficiency. No known history of cancer. LOCAL AREA NETWORK ADMINISTRATOR: Diandra Braden M.D. SECONDARY BULL RIDER: Ramos Wyatt M.D. NURSE: Linwood RN note; Prisca. TECH: See Technologist note; Justin. MEDICATIONS: 1% Lidocaine Subcutaneously. Moderate sedation was performed by a trained interventional radiology nurse un cheryl direct physician supervision with 2.5 mg of Versed and 175 mcg fentanyl IV from 0420 hours to 0710 hours. VTE PROPHYLAXIS: None indicated for this ambulatory procedure. ANTIBIOTIC PROPHYLAXIS: None indicated FLUORO TIME/RADIATION DOSE: 31. 8 minutes, Air Kerma of 6707 [place] [address] uGy-m^2 COMPLICATIONS: None immediately. PATIENT CONDITION: Stable. COMPARISON: 02/04/[address] chest, 10/12/2019 outside CTA abdomen/pelvis TECHNIQUE: The patient was identi fied. After the risks and benefits of the procedure were discussed with the patient, an informed written consent was obtained. The patient was then brought back to interventional suite and placed supine on the table. Appropriate time out was per formed to confirm patient identity and planned procedure. The patient was then prepped and draped in the normal sterile fashion. Strict hand hygiene protocol was observed with the operators doing a surgical hand scrub. All personnel in the renea m were attired in surgical hat and mask. The operators were in surgical hat, mask, sterile gloves and gowns. The sites were prepped with 2% chlorhexidine for cutaneous antisepsis, followed by sterile barrier draping. Conscious sedation was initi ated. AORTOGRAM AND LEFT RENAL ARTERIOGRAPHY AND EMBOLIZATION: The right common femoral artery was accessed with a micropuncture set. A 5 Fr vascular sheath was then placed within the artery. A DSA (Digital Subtraction Angiography) was perfo rmed through the sheath in the common femoral artery. Over an 0.035 in guidewire, a 5 [place] Contra 2 was not successful at selecting the left renal arteries, and so a 5 [place] Omniflush was advanced to T12, above the renal arteries. Aortogram s howed the locations of the two left renal arteries, superoposterior and anteroinferior, and no active extravasation, blush, or pseudoaneurysm was seen. Then, the Omniflush was exchanged for the Contra 2 catheter which was advanced into the lef t superoposterior renal artery; DSA showed no active extravasation, blush, or pseudoaneurysm. After further more peripheral selection of the main branch of the left superoposterior renal artery with the Progreat microcatheter, still no active ex travasation, blush, or pseudoaneurysm was seen. Therefore, the Contra 2 was used to select the left anteroinferior renal artery; DSA showed at least 4-5 sites of active extravasation at the mid to lower renal pole, of varying severity. After p lacement of the Progreat microcatheter more peripherally in the main branch of the left anteroinferior renal artery, it was noted that the greatest extravasation was from the inferoanterior left renal artery inferolateral subsegmental branch to the lower pole, with a bare spot in this region of the lower pole, in keeping with a known renal cyst, which previously measured simple fluid density on 02/04/[address] chest but measured blood density on 10/12/2019 outside CTA abdomen/ pelvis. It was attempted to select this branch with a microcatheter, but first selected was the inferoanterior left renal artery inferomedial subsegmental branch to lower pole; DSA at this branch showed no active extravasation, blush, or pseudoa neurysm at these terminal branches, but did show active extravasation upon reflux into the targeted branch. Next, the targeted branch--the inferoanterior left renal artery inferolateral subsegmental branch to lower pole--was selected, with DSA confirming prompt active extravasation. The vessel was more peripherally selected to spare as much non-target renal parenchyma as possible, and satisfactory position was confirmed on DSA; this branch was embolized to stasis with Mc. Post embo lization DSA of the left anteroinferior renal artery through the Contra 2 demonstrated no active extravasation, blush, or pseudoaneurysm at the target vessel, with slightly enlarged area of parenchymal non-filling defect, in keeping with embol ization of this renal sub-segment. Post-embolization DSA also showed additional 3 areas of slow-flow active extravasation at branches involving about 50% of the left renal parenchyma. Branches supplying the largest of these--the inferoanterior l eft renal artery lateral inferior subsegmental branch to lower pole and the inferoanterior left renal artery lateral superior subsegmental branch to lower pole--were serially selected, but DSA confirmed that the active extravasation was slow-tam w. Given these findings, it was decided that the risk of harm to the [place] renal parenchyma in this patient with existing renal insufficiency exceeded the likely gain from embolization at this time. All catheters were removed. The vascular s cyril was removed. AngioSeal VIP was used for vascular closure with no hematoma. A sterile dressing was placed. The patient tolerated the procedure well, with no immediate complication. The patient was transferred to recovery in stable condit ion. The findings were discussed with the patient's family, son Jesus Manuel and daughter Caitlyn, in person after the case. These findings were discussed by executive vice president and chief financial officer Dr. Ramos Wyatt with trauma surgery ICU member Dr. Shaw at 0755 hours on . FINDINGS: As above. IMPRESSION: 1. Two left renal arteries; active extravasation of varying degree from mid to lower pole multiple branches (4-5) of the anteroinferior left renal artery. 2. Successful angiography and emboliz ation of the site of brisk active extravasation--possibly bleeding into her known left renal cyst--at the inferoanterior left renal artery inferolateral subsegmental branch to lower pole. 3. Other sites of active extravasation were noted to be slow-flow, with the two most suspicious sites interrogated and this finding confirmed on DSA. 4. Given these findings, it was decided that the risk of harm to the [place] renal parenchyma in this patient with existing renal insufficiency exc eeded the likely gain from embolization of multiple sites at thistime. RECOMMENDATIONS: * Given the embolization of the major site of active extravasation (left renal artery, lower pole branch, inferoanterior left renal artery inferolateral subsegmental branch to lower pole) but non-embolization of other sites of slow-flow active extravasation in order to spare renal parenchyma, IR recommendation is to not restart anticoagulation/antiplatelets except under very close monitoring and with a low threshold to discontinue them. * Per her family, the patient's Xarelto is for treating atrial fibrillation which is intermittent. It may be helpful to explore other options for decreasing stroke risk, such as cardiac ablation and/ or left atrial appendage closure. * This patient has a difficult situation. Any future anticoagulation/antiplatelets must be carefully weighed against her bleeding risk--particularly as noted at this left kidney--and potential further loss of renal parenchyma and renal function if additional renal tissue must be sacrificed by embolization. * MRI renal lesion protocol without and with IV contrast, perhaps in a day or two post-procedure, will likely be helpful to assess for any un derlying occult renal mass. * If the patient remains hemodynamically stable, the large perirenal hematoma can be percutaneously drained after about 2-3 weeks to try to aid recovery of the remaining left renal parenchyma, as well as for patient comfort. CRITICAL RESULT: No. COMMUNICATION: The findings were discussed with the patient's family, son Jesus Manuel and daughter Caitlyn, in person after the case. These findings were discussed by executive vice president and chief financial officer Dr. Ramos Wyatt with trauma [facility] ICU member Dr. Shaw at 0755 hours on 10/13/2019. ATTESTATION: Not Applicable. Verified by: DIANDRA BRADEN M.D. on Oct 16 2019 9:35P Transcribed by: PSC[facility] on Oct 16 2019 9:35P Dictated by: DIANDRA BRADEN M.D. on Oct 13 2 020 8:24A us Diandra Braden MD IMG IR PROCEDURES Final R esult * IR VIR HISTORICAL (10/13/2019 7:18 AM EST) Anatomical Region Laterality Modality X-Ray Angiograph y Narrative 10/16/2019 9:36 PM EST REQUESTING PHYSICIAN: DIANDRA BRADEN REASON FOR EXAMINATION/PROCEDURE: ?? * ??angiographic eval and embolization of left retroperitoneal bleed EXAMINATION / PROCEDURE: ANGIO NOTIFICATION Feb ??6 2019 - 07:18; LE FT RENAL 2ND ORDER Feb ??6 2019 07:18; Sedation 1st 15 mins >=5yo Feb ??6 2019 07:18; Sedation ea add 15 mins any age Feb ??6 2020 07:18; Sedation ea add 15 mins any age Feb ?? 6 2019 07:18; Sedation ea add 15 ? PROCEDURE(S): ?? * ??ULTRA SOUND GUIDED ACCESS TO THE RIGHT COMMON FEMORAL ARTERY * ??ANGIOGRAPHY OF THE RIGHT COMMON FEMORAL ARTERY * ??AORTOGRAM * ??SELECTIVE ANGIOGRAPHY OF THE SUPEROPOSTERIOR LEFT RENAL ARTERY * ??SELECTIVE ANGIOGRAPHY OF THE INFEROANTERIOR LEFT RENAL ALVINO RY * ??SELECTIVE ANGIOGRAPHY OF THE INFEROANTERIOR LEFT RENAL ARTERY INFEROMEDIAL SUBSEGMENTAL BRANCH TO LOWER POLE * ??SELECTIVE ANGIOGRAPHY OF THE INFEROANTERIOR LEFT RENAL ARTERY INFEROLATERAL SUBSEGMENTAL BRANCH TO LOWER POLE * ??SELECTIVE ANG IOGRAPHY OF THE INFEROANTERIOR LEFT RENAL ARTERY LATERAL INFERIOR SUBSEGMENTAL BRANCH TO LOWER POLE * ??SELECTIVE ANGIOGRAPHY OF THE INFEROANTERIOR LEFT RENAL ARTERY LATERAL SUPERIOR SUBSEGMENTAL BRANCH TO LOWER POLE * ??EMBOLIZATION OF THE INFE ROANTERIOR LEFT RENAL ARTERY INFEROLATERAL SUBSEGMENTAL BRANCH TO LOWER POLE * ??CLOSURE DEVICE USED AT RIGHT COMMON FEMORAL ARTERY * ??CONSCIOUS SEDATION CLINICAL HISTORY: ??IR consulted for left renal active extravasation seen on CTA. Pleasant ??69 year old woman with intermittent atrial fibrillation who reports starting Xarelto August 2019 and developing left flank pain a few weeks ago. Her left flank pain became intolerable yesterday; no trauma, but she reports a recent and ongoing ??UTI as well as exercising on her stationary recumbent bicycle; CTA prior to consult showed the left renal active extravasation. She also has Henoch-Schonlein purpura and mild renal insufficiency. No known history of cancer. LOCAL AREA NETWORK ADMINISTRATOR: ??Diandra Braden M.D. SECONDARY BULL RIDER: Ramos Wyatt M.D. NURSE: See RN note; Prisca. TECH: See Technologist note; Justin. MEDICATIONS: 1% Lidocaine Subcutaneously. Moderate sedation was performed by a trained interventional radiology nurse un cheryl direct physician supervision with 2.5 mg of Versed and 175 mcg fentanyl IV from 0420 hours to 0710 hours. VTE PROPHYLAXIS: None indicated for this ambulatory procedure. ANTIBIOTIC PROPHYLAXIS: None indicated FLUORO TIME/RADIATION DOSE: 31. 8 minutes, Air Kerma of 6707 [place] [address] uGy-m^2 COMPLICATIONS: ??None immediately. PATIENT CONDITION: ??Stable. COMPARISON: ??02/04/[address] chest, 10/12/2019 outside CTA abdomen/pelvis TECHNIQUE: ?? The patient was identi fied. After the risks and benefits of the procedure were discussed with the patient, an informed written consent was obtained. The patient was then brought back to interventional suite and placed supine on the table. Appropriate time out was per formed to confirm patient identity and planned procedure. The patient was then prepped and draped in the normal sterile fashion. Strict hand hygiene protocol was observed with the operators doing a surgical hand scrub. All personnel in the [facility] were attired in surgical hat and mask. The operators were in surgical hat, mask, sterile gloves and gowns. The sites were prepped with 2% chlorhexidine for cutaneous antisepsis, followed by sterile barrier draping. Conscious sedation was initi ated. ?? AORTOGRAM AND LEFT RENAL ARTERIOGRAPHY AND EMBOLIZATION: The right common femoral artery was accessed with a micropuncture set. A 5 Fr vascular sheath was then placed within the artery. A DSA (Digital Subtraction Angiography) was perfo rmed through the sheath in the common femoral artery. Over an 0.035 in guidewire, a 5 [place] Contra 2 was not successful at selecting the left renal arteries, and so a 5 [place] Omniflush was advanced to T12, above the renal arteries. Aortogram s howed the locations of the two left renal arteries, superoposterior and anteroinferior, and no active extravasation, blush, or pseudoaneurysm was seen. Then, the Omniflush was exchanged for the Contra 2 catheter which was advanced into the lef t superoposterior renal artery; DSA showed no active extravasation, blush, or pseudoaneurysm. After further more peripheral selection of the main branch of the left superoposterior renal artery with the Progreat microcatheter, still no active ex travasation, blush, or pseudoaneurysm was seen. Therefore, the Contra 2 was used to select the left anteroinferior renal artery; DSA showed at least 4-5 sites of active extravasation at the mid to lower renal pole, of varying severity. After p lacement of the Progreat microcatheter more peripherally in the main branch of the left anteroinferior renal artery, it was noted that the greatest extravasation was from the inferoanterior left renal artery inferolateral subsegmental branch to the lower pole, with a bare spot in this region of the lower pole, in keeping with a known renal cyst, which previously measured simple fluid density on 02/04/[address] chest but measured blood density on 10/12/2019 outside CTA abdomen/ pelvis. It was attempted to select this branch with a microcatheter, but first selected was the inferoanterior left renal artery inferomedial subsegmental branch to lower pole; DSA at this branch showed no active extravasation, blush, or pseudoa neurysm at these terminal branches, but did show active extravasation upon reflux into the targeted branch. Next, the targeted branch--the inferoanterior left renal artery inferolateral subsegmental branch to lower pole--was selected, with DSA ??confirming prompt active extravasation. The vessel was more peripherally selected to spare as much non-target renal parenchyma as possible, and satisfactory position was confirmed on DSA; this branch was embolized to stasis with Mc. Post embo lization DSA of the left anteroinferior renal artery through the Contra 2 demonstrated no active extravasation, blush, or pseudoaneurysm at the target vessel, with slightly enlarged area of parenchymal non-filling defect, in keeping with embol ization of this renal sub-segment. Post-embolization DSA also showed additional 3 areas of slow-flow active extravasation at branches involving about 50% of the left renal parenchyma. Branches supplying the largest of these--the inferoanterior l eft renal artery lateral inferior subsegmental branch to lower pole and the inferoanterior left renal artery lateral superior subsegmental branch to lower pole--were serially selected, but DSA confirmed that the active extravasation was slow-tam w. Given these findings, it was decided that the risk of harm to the [place] renal parenchyma in this patient with existing renal insufficiency exceeded the likely gain from embolization at this time. All catheters were removed. The vascular s cyril was removed. AngioSeal VIP was used for vascular closure with no hematoma. A sterile dressing was placed. The patient tolerated the procedure well, with no immediate complication. The patient was transferred to recovery in stable condit ion. The findings were discussed with the patient's family, son Jesus Manuel and daughter Caitlyn, in person after the case. These findings were discussed by executive vice president and chief financial officer Dr. Ramos Wyatt with trauma surgery ICU member Dr. Shaw at 0755 hours on . FINDINGS: As above. ?? IMPRESSION: 1. ??Two left renal arteries; active extravasation of varying degree from mid to lower pole multiple branches (4-5) of the anteroinferior left renal artery. 2. ??Successful angiography and emboliz ation of the site of brisk active extravasation--possibly bleeding into her known left renal cyst--at the inferoanterior left renal artery inferolateral subsegmental branch to lower pole. 3. ??Other sites of active extravasation were noted to be ??slow-flow, with the two most suspicious sites interrogated and this finding confirmed on DSA. 4. ??Given these findings, it was decided that the risk of harm to the [place] renal parenchyma in this patient with existing renal insufficiency exc eeded the likely gain from embolization of multiple sites at this time. RECOMMENDATIONS: * ??Given the embolization of the major site of active extravasation (left renal artery, lower pole branch, inferoanterior left renal artery inferolateral subsegmental branch to lower pole) but non-embolization of other sites of slow-flow active extravasation in order to spare renal parenchyma, IR recommendation is to not restart anticoagulation/antiplatelets except under very close monitoring and ??with a low threshold to discontinue them. * ??Per her family, the patient's Xarelto is for treating atrial fibrillation which is intermittent. It may be helpful to explore other options for decreasing stroke risk, such as cardiac ablation and/ or left atrial appendage closure. * ??This patient has a difficult situation. Any future anticoagulation/antiplatelets must be carefully weighed against her bleeding risk--particularly as noted at this left kidney--and potential further loss of renal parenchyma and renal function if additional renal tissue must be sacrificed by embolization. * ??MRI renal lesion protocol without and with IV contrast, perhaps in a day or two post-procedure, will likely be helpful to assess for any un derlying occult renal mass. * ??If the patient remains hemodynamically stable, the large perirenal hematoma can be percutaneously drained after about 2-3 weeks to try to aid recovery of the remaining left renal parenchyma, as well as for patient ??comfort. CRITICAL RESULT: No. COMMUNICATION: The findings were discussed with the patient's family, son Jesus Manuel and daughter Caitlyn, in person after the case. These findings were discussed by executive vice president and chief financial officer Dr. Ramos Wyatt with trauma [facility] ICU member Dr. Shaw at 0755 hours on 10/13/2019. ATTESTATION: Not Applicable. ?? Verified by: DIANDRA BRADEN M.D. on Oct ??2019 ??9:35P Transcribed by: [facility] on Oct ??2019 ??9:35P Dictated by: DIANDRA BRADEN M.D. on Oct ??6 2 020 ??8:24A Procedure Note Diandra Braden - 12/31/2020 REQUESTING PHYSICIAN: DIANDRA BRADEN REASON FOR EXAMINATION/PROCEDURE: * angiographic eval and embolization of left retroperitoneal bleed EXAMINATION / PROCEDURE: ANGIO NOTIFICATION Oct 13 201918; LE FT RENAL 2ND ORDER Oct 13 2019; Sedation 1st 15 mins >=5yo Oct 13 201918; Sedation ea add 15 mins any age Oct 13 201918; Sedation ea add 15 mins any age Oct 13 201918; Sedation ea add 15 PROCEDURE(S): * ULTRA SOUND GUIDED ACCESS TO THE RIGHT COMMON FEMORAL ARTERY * ANGIOGRAPHY OF THE RIGHT COMMON FEMORAL ARTERY * AORTOGRAM * SELECTIVE ANGIOGRAPHY OF THE SUPEROPOSTERIOR LEFT RENAL ARTERY * SELECTIVE ANGIOGRAPHY OF THE INFEROANTERIOR LEFT RENAL ALVINO RY * SELECTIVE ANGIOGRAPHY OF THE INFEROANTERIOR LEFT RENAL ARTERY INFEROMEDIAL SUBSEGMENTAL BRANCH TO LOWER POLE * SELECTIVE ANGIOGRAPHY OF THE INFEROANTERIOR LEFT RENAL ARTERY INFEROLATERAL SUBSEGMENTAL BRANCH TO LOWER POLE * SELECTIVE ANG IOGRAPHY OF THE INFEROANTERIOR LEFT RENAL ARTERY LATERAL INFERIOR SUBSEGMENTAL BRANCH TO LOWER POLE * SELECTIVE ANGIOGRAPHY OF THE INFEROANTERIOR LEFT RENAL ARTERY LATERAL SUPERIOR SUBSEGMENTAL BRANCH TO LOWER POLE * EMBOLIZATION OF THE INFE ROANTERIOR LEFT RENAL ARTERY INFEROLATERAL SUBSEGMENTAL BRANCH TO LOWER POLE * CLOSURE DEVICE USED AT RIGHT COMMON FEMORAL ARTERY * CONSCIOUS SEDATION CLINICAL HISTORY: IR consulted for left renal active extravasation seen on CTA. Pleasant 69 year old woman with intermittent atrial fibrillation who reports starting Xarelto August 2019 and developing left flank pain a few weeks ago. Her left flank pain became intolerable yesterday; no trauma, but she reports a recent and ongoing UTI as well as exercising on her stationary recumbent bicycle; CTA prior to consult showed the left renal active extravasation. She also has Henoch-Schonlein purpura and mild renal insufficiency. No known history of cancer. LOCAL AREA NETWORK ADMINISTRATOR: Diandra Braden M.D. SECONDARY BULL RIDER: Ramos Wyatt M.D. NURSE: Linwood RN note; Prisca. TECH: See Technologist note; Justin. MEDICATIONS: 1% Lidocaine Subcutaneously. Moderate sedation was performed by a trained interventional radiology nurse un cheryl direct physician supervision with 2.5 mg of Versed and 175 mcg fentanyl IV from 0420 hours to 0710 hours. VTE PROPHYLAXIS: None indicated for this ambulatory procedure. ANTIBIOTIC PROPHYLAXIS: None indicated FLUORO TIME/RADIATION DOSE: 31. 8 minutes, Air Kerma of 6707 mGy, [place] [address] uGy-m^2 COMPLICATIONS: None immediately. PATIENT CONDITION: Stable. COMPARISON: 02/04/[address] chest, 10/12/2019 outside CTA abdomen/pelvis TECHNIQUE: The patient was identi fied. After the risks and benefits of the procedure were discussed with the patient, an informed written consent was obtained. The patient was then brought back to interventional suite and placed supine on the table. Appropriate time out was per formed to confirm patient identity and planned procedure. The patient was then prepped and draped in the normal sterile fashion. Strict hand hygiene protocol was observed with the operators doing a surgical hand scrub. All personnel in the renea m were attired in surgical hat and mask. The operators were in surgical hat, mask, sterile gloves and gowns. The sites were prepped with 2% chlorhexidine for cutaneous antisepsis, followed by sterile barrier draping. Conscious sedation was initi ated. AORTOGRAM AND LEFT RENAL ARTERIOGRAPHY AND EMBOLIZATION: The right common femoral artery was accessed with a micropuncture set. A 5 Fr vascular sheath was then placed within the artery. A DSA (Digital Subtraction Angiography) was perfo rmed through the sheath in the common femoral artery. Over an 0.035 in guidewire, a 5 [place] Contra 2 was not successful at selecting the left renal arteries, and so a 5 [place] Omniflush was advanced to T12, above the renal arteries. Aortogram s howed the locations of the two left renal arteries, superoposterior and anteroinferior, and no active extravasation, blush, or pseudoaneurysm was seen. Then, the Omniflush was exchanged for the Contra 2 catheter which was advanced into the lef t superoposterior renal artery; DSA showed no active extravasation, blush, or pseudoaneurysm. After further more peripheral selection of the main branch of the left superoposterior renal artery with the Progreat microcatheter, still no active ex travasation, blush, or pseudoaneurysm was seen. Therefore, the Contra 2 was used to select the left anteroinferior renal artery; DSA showed at least 4-5 sites of active extravasation at the mid to lower renal pole, of varying severity. After p lacement of the Progreat microcatheter more peripherally in the main branch of the left anteroinferior renal artery, it was noted that the greatest extravasation was from the inferoanterior left renal artery inferolateral subsegmental branch to the lower pole, with a bare spot in this region of the lower pole, in keeping with a known renal cyst, which previously measured simple fluid density on 02/04/[address] chest but measured blood density on 10/12/2019 outside CTA abdomen/ pelvis. It was attempted to select this branch with a microcatheter, but first selected was the inferoanterior left renal artery inferomedial subsegmental branch to lower pole; DSA at this branch showed no active extravasation, blush, or pseudoa neurysm at these terminal branches, but did show active extravasation upon reflux into the targeted branch. Next, the targeted branch--the inferoanterior left renal artery inferolateral subsegmental branch to lower pole--was selected, with DSA confirming prompt active extravasation. The vessel was more peripherally selected to spare as much non-target renal parenchyma as possible, and satisfactory position was confirmed on DSA; this branch was embolized to stasis with Mc. Post embo lization DSA of the left anteroinferior renal artery through the Contra 2 demonstrated no active extravasation, blush, or pseudoaneurysm at the target vessel, with slightly enlarged area of parenchymal non-filling defect, in keeping with embol ization of this renal sub-segment. Post-embolization DSA also showed additional 3 areas of slow-flow active extravasation at branches involving about 50% of the left renal parenchyma. Branches supplying the largest of these--the inferoanterior l eft renal artery lateral inferior subsegmental branch to lower pole and the inferoanterior left renal artery lateral superior subsegmental branch to lower pole--were serially selected, but DSA confirmed that the active extravasation was slow-tam w. Given these findings, it was decided that the risk of harm to the [place] renal parenchyma in this patient with existing renal insufficiency exceeded the likely gain from embolization at this time. All catheters were removed. The vascular s cyril was removed. AngioSeal VIP was used for vascular closure with no hematoma. A sterile dressing was placed. The patient tolerated the procedure well, with no immediate complication. The patient was transferred to recovery in stable condit ion. The findings were discussed with the patient's family, son Jesus Manuel and daughter Caitlyn, in person after the case. These findings were discussed by executive vice president and chief financial officer Dr. Ramos Wyatt with trauma surgery ICU member Dr. Shaw at 0755 hours on . FINDINGS: As above. IMPRESSION: 1. Two left renal arteries; active extravasation of varying degree from mid to lower pole multiple branches (4-5) of the anteroinferior left renal artery. 2. Successful angiography and emboliz ation of the site of brisk active extravasation--possibly bleeding into her known left renal cyst--at the inferoanterior left renal artery inferolateral subsegmental branch to lower pole. 3. Other sites of active extravasation were noted to be slow-flow, with the two most suspicious sites interrogated and this finding confirmed on DSA. 4. Given these findings, it was decided that the risk of harm to the [place] renal parenchyma in this patient with existing renal insufficiency exc eeded the likely gain from embolization of multiple sites at thistime. RECOMMENDATIONS: * Given the embolization of the major site of active extravasation (left renal artery, lower pole branch, inferoanterior left renal artery inferolateral subsegmental branch to lower pole) but non-embolization of other sites of slow-flow active extravasation in order to spare renal parenchyma, IR recommendation is to not restart anticoagulation/antiplatelets except under very close monitoring and with a low threshold to discontinue them. * Per her family, the patient's Xarelto is for treating atrial fibrillation which is intermittent. It may be helpful to explore other options for decreasing stroke risk, such as cardiac ablation and/ or left atrial appendage closure. * This patient has a difficult situation. Any future anticoagulation/antiplatelets must be carefully weighed against her bleeding risk--particularly as noted at this left kidney--and potential further loss of renal parenchyma and renal function if additional renal tissue must be sacrificed by embolization. * MRI renal lesion protocol without and with IV contrast, perhaps in a day or two post-procedure, will likely be helpful to assess for any un derlying occult renal mass. * If the patient remains hemodynamically stable, the large perirenal hematoma can be percutaneously drained after about 2-3 weeks to try to aid recovery of the remaining left renal parenchyma, as well as for patient comfort. CRITICAL RESULT: No. COMMUNICATION: The findings were discussed with the patient's family, son Jesus Manuel and daughter Caitlyn, in person after the case. These findings were discussed by executive vice president and chief financial officer Dr. Ramos Wyatt with trauma freeman ery ICU member Dr. Shaw at 0755 hours on 10/13/2019. ATTESTATION: Not Applicable. Verified by: DIANDRA BRADEN M.D. on Oct 16 2019 9:35P Transcribed by: [facility] on Oct 16 2019 9:35P Dictated by: DIANDRA BRADEN M.D. on Oct 13 2 020 8:24A us Diandra Braden MD IMG IR PROCEDURES Final R esult * IR VIR HISTORICAL (10/13/2019 7:18 AM EST) Anatomical Region Laterality Modality X-Ray Angiograph y Narrative 10/16/2019 9:36 PM EST REQUESTING PHYSICIAN: DIANDRA BRADEN REASON FOR EXAMINATION/PROCEDURE: ?? * ??angiographic eval and embolization of left retroperitoneal bleed EXAMINATION / PROCEDURE: ANGIO NOTIFICATION Feb ??6 2019 - 07:18; LE FT RENAL 2ND ORDER Feb ??6 2019:18; Sedation 1st 15 mins >=5yo Feb ??6 2019:18; Sedation ea add 15 mins any age Feb ??6 2019 07:18; Sedation ea add 15 mins any age Feb ?? 6 2019:18; Sedation ea add 15 ? PROCEDURE(S): ?? * ??ULTRA SOUND GUIDED ACCESS TO THE RIGHT COMMON FEMORAL ARTERY * ??ANGIOGRAPHY OF THE RIGHT COMMON FEMORAL ARTERY * ??AORTOGRAM * ??SELECTIVE ANGIOGRAPHY OF THE SUPEROPOSTERIOR LEFT RENAL ARTERY * ??SELECTIVE ANGIOGRAPHY OF THE INFEROANTERIOR LEFT RENAL [place] RY * ??SELECTIVE ANGIOGRAPHY OF THE INFEROANTERIOR LEFT RENAL ARTERY INFEROMEDIAL SUBSEGMENTAL BRANCH TO LOWER POLE * ??SELECTIVE ANGIOGRAPHY OF THE INFEROANTERIOR LEFT RENAL ARTERY INFEROLATERAL SUBSEGMENTAL BRANCH TO LOWER POLE * ??SELECTIVE ANG IOGRAPHY OF THE INFEROANTERIOR LEFT RENAL ARTERY LATERAL INFERIOR SUBSEGMENTAL BRANCH TO LOWER POLE * ??SELECTIVE ANGIOGRAPHY OF THE INFEROANTERIOR LEFT RENAL ARTERY LATERAL SUPERIOR SUBSEGMENTAL BRANCH TO LOWER POLE * ??EMBOLIZATION OF THE INFE ROANTERIOR LEFT RENAL ARTERY INFEROLATERAL SUBSEGMENTAL BRANCH TO LOWER POLE * ??CLOSURE DEVICE USED AT RIGHT COMMON FEMORAL ARTERY * ??CONSCIOUS SEDATION CLINICAL HISTORY: ??IR consulted for left renal active extravasation seen on CTA. Pleasant ??69 year old woman with intermittent atrial fibrillation who reports starting Xarelto August 2019 and developing left flank pain a few weeks ago. Her left flank pain became intolerable yesterday; no trauma, but she reports a recent and ongoing ??UTI as well as exercising on her stationary recumbent bicycle; CTA prior to consult showed the left renal active extravasation. She also has Henoch-Schonlein purpura and mild renal insufficiency. No known history of cancer. LOCAL AREA NETWORK ADMINISTRATOR: ??Diandra Braden M.D. SECONDARY BULL RIDER: Ramos Wyatt M.D. NURSE: See RN note; Prisca. TECH: See Technologist note; Justin. MEDICATIONS: 1% Lidocaine Subcutaneously. Moderate sedation was performed by a trained interventional radiology nurse un cheryl direct physician supervision with 2.5 mg of Versed and 175 mcg fentanyl IV from 0420 hours to 0710 hours. VTE PROPHYLAXIS: None indicated for this ambulatory procedure. ANTIBIOTIC PROPHYLAXIS: None indicated FLUORO TIME/RADIATION DOSE: 31. 8 minutes, Air Kerma of 6707 [place]Gy[place] [address] uGy-m^2 COMPLICATIONS: ??None immediately. PATIENT CONDITION: ??Stable. COMPARISON: ??02/04/[address] chest, 10/12/2019 outside CTA abdomen/pelvis TECHNIQUE: ?? The patient was identi fied. After the risks and benefits of the procedure were discussed with the patient, an informed written consent was obtained. The patient was then brought back to interventional suite and placed supine on the table. Appropriate time out was per formed to confirm patient identity and planned procedure. The patient was then prepped and draped in the normal sterile fashion. Strict hand hygiene protocol was observed with the operators doing a surgical hand scrub. All personnel in the [facility] were attired in surgical hat and mask. The operators were in surgical hat, mask, sterile gloves and gowns. The sites were prepped with 2% chlorhexidine for cutaneous antisepsis, followed by sterile barrier draping. Conscious sedation was initi ated. ?? AORTOGRAM AND LEFT RENAL ARTERIOGRAPHY AND EMBOLIZATION: The right common femoral artery was accessed with a micropuncture set. A 5 Fr vascular sheath was then placed within the artery. A DSA (Digital Subtraction Angiography) was perfo rmed through the sheath in the common femoral artery. Over an 0.035 in guidewire, a 5 [place] Contra 2 was not successful at selecting the left renal arteries, and so a 5 [place] Omniflush was advanced to T12, above the renal arteries. Aortogram s howed the locations of the two left renal arteries, superoposterior and anteroinferior, and no active extravasation, blush, or pseudoaneurysm was seen. Then, the Omniflush was exchanged for the Contra 2 catheter which was advanced into the lef t superoposterior renal artery; DSA showed no active extravasation, blush, or pseudoaneurysm. After further more peripheral selection of the main branch of the left superoposterior renal artery with the Progreat microcatheter, still no active ex travasation, blush, or pseudoaneurysm was seen. Therefore, the Contra 2 was used to select the left anteroinferior renal artery; DSA showed at least 4-5 sites of active extravasation at the mid to lower renal pole, of varying severity. After p lacement of the Progreat microcatheter more peripherally in the main branch of the left anteroinferior renal artery, it was noted that the greatest extravasation was from the inferoanterior left renal artery inferolateral subsegmental branch to the lower pole, with a bare spot in this region of the lower pole, in keeping with a known renal cyst, which previously measured simple fluid density on 02/04/[address] chest but measured blood density on 10/12/2019 outside CTA abdomen/ pelvis. It was attempted to select this branch with a microcatheter, but first selected was the inferoanterior left renal artery inferomedial subsegmental branch to lower pole; DSA at this branch showed no active extravasation, blush, or pseudoa neurysm at these terminal branches, but did show active extravasation upon reflux into the targeted branch. Next, the targeted branch--the inferoanterior left renal artery inferolateral subsegmental branch to lower pole--was selected, with DSA ??confirming prompt active extravasation. The vessel was more peripherally selected to spare as much non-target renal parenchyma as possible, and satisfactory position was confirmed on DSA; this branch was embolized to stasis with Mc. Post embo lization DSA of the left anteroinferior renal artery through the Contra 2 demonstrated no active extravasation, blush, or pseudoaneurysm at the target vessel, with slightly enlarged area of parenchymal non-filling defect, in keeping with embol ization of this renal sub-segment. Post-embolization DSA also showed additional 3 areas of slow-flow active extravasation at branches involving about 50% of the left renal parenchyma. Branches supplying the largest of these--the inferoanterior l eft renal artery lateral inferior subsegmental branch to lower pole and the inferoanterior left renal artery lateral superior subsegmental branch to lower pole--were serially selected, but DSA confirmed that the active extravasation was slow-tam w. Given these findings, it was decided that the risk of harm to the [place] renal parenchyma in this patient with existing renal insufficiency exceeded the likely gain from embolization at this time. All catheters were removed. The vascular s cyril was removed. AngioSeal VIP was used for vascular closure with no hematoma. A sterile dressing was placed. The patient tolerated the procedure well, with no immediate complication. The patient was transferred to recovery in stable condit ion. The findings were discussed with the patient's family, son Jesus Manuel and daughter Caitlyn, in person after the case. These findings were discussed by executive vice president and chief financial officer Dr. Ramos Wyatt with trauma surgery ICU member Dr. Shaw at 0755 hours on . FINDINGS: As above. ?? IMPRESSION: 1. ??Two left renal arteries; active extravasation of varying degree from mid to lower pole multiple branches (4-5) of the anteroinferior left renal artery. 2. ??Successful angiography and emboliz ation of the site of brisk active extravasation--possibly bleeding into her known left renal cyst--at the inferoanterior left renal artery inferolateral subsegmental branch to lower pole. 3. ??Other sites of active extravasation were noted to be ??slow-flow, with the two most suspicious sites interrogated and this finding confirmed on DSA. 4. ??Given these findings, it was decided that the risk of harm to the [place] renal parenchyma in this patient with existing renal insufficiency exc eeded the likely gain from embolization of multiple sites at this time. RECOMMENDATIONS: * ??Given the embolization of the major site of active extravasation (left renal artery, lower pole branch, inferoanterior left renal artery inferolateral subsegmental branch to lower pole) but non-embolization of other sites of slow-flow active extravasation in order to spare renal parenchyma, IR recommendation is to not restart anticoagulation/antiplatelets except under very close monitoring and ??with a low threshold to discontinue them. * ??Per her family, the patient's Xarelto is for treating atrial fibrillation which is intermittent. It may be helpful to explore other options for decreasing stroke risk, such as cardiac ablation and/ or left atrial appendage closure. * ??This patient has a difficult situation. Any future anticoagulation/antiplatelets must be carefully weighed against her bleeding risk--particularly as noted at this left kidney--and potential further loss of renal parenchyma and renal function if additional renal tissue must be sacrificed by embolization. * ??MRI renal lesion protocol without and with IV contrast, perhaps in a day or two post-procedure, will likely be helpful to assess for any un derlying occult renal mass. * ??If the patient remains hemodynamically stable, the large perirenal hematoma can be percutaneously drained after about 2-3 weeks to try to aid recovery of the remaining left renal parenchyma, as well as for patient ??comfort. CRITICAL RESULT: No. COMMUNICATION: The findings were discussed with the patient's family, son Jesus Manuel and daughter Caitlyn, in person after the case. These findings were discussed by executive vice president and chief financial officer Dr. Ramos Wyatt with trauma [facility] ICU member Dr. Shaw at 0755 hours on 10/13/2019. ATTESTATION: Not Applicable. ?? Verified by: DIANDRA BRADEN M.D. on Oct ??2019 ??9:35P Transcribed by: [facility] on Oct ??2019 ??9:35P Dictated by: DIANDRA BRADEN M.D. on Oct ??6 2 020 ??8:24A Procedure Note Diandra Braden - 12/31/2020 REQUESTING PHYSICIAN: DIANDRA BRADEN REASON FOR EXAMINATION/PROCEDURE: * angiographic eval and embolization of left retroperitoneal bleed EXAMINATION / PROCEDURE: ANGIO NOTIFICATION Oct 13 2019:18; LE FT RENAL 2ND ORDER Oct 13 2019:18; Sedation 1st 15 mins >=5yo Oct 13 2019:18; Sedation ea add 15 mins any age Oct 13 2019:18; Sedation ea add 15 mins any age Feb 6 2019:18; Sedation ea add 15 PROCEDURE(S): * ULTRA SOUND GUIDED ACCESS TO THE RIGHT COMMON FEMORAL ARTERY * ANGIOGRAPHY OF THE RIGHT COMMON FEMORAL ARTERY * AORTOGRAM * SELECTIVE ANGIOGRAPHY OF THE SUPEROPOSTERIOR LEFT RENAL ARTERY * SELECTIVE ANGIOGRAPHY OF THE INFEROANTERIOR LEFT RENAL [place] RY * SELECTIVE ANGIOGRAPHY OF THE INFEROANTERIOR LEFT RENAL ARTERY INFEROMEDIAL SUBSEGMENTAL BRANCH TO LOWER POLE * SELECTIVE ANGIOGRAPHY OF THE INFEROANTERIOR LEFT RENAL ARTERY INFEROLATERAL SUBSEGMENTAL BRANCH TO LOWER POLE * SELECTIVE ANG IOGRAPHY OF THE INFEROANTERIOR LEFT RENAL ARTERY LATERAL INFERIOR SUBSEGMENTAL BRANCH TO LOWER POLE * SELECTIVE ANGIOGRAPHY OF THE INFEROANTERIOR LEFT RENAL ARTERY LATERAL SUPERIOR SUBSEGMENTAL BRANCH TO LOWER POLE * EMBOLIZATION OF THE INFE ROANTERIOR LEFT RENAL ARTERY INFEROLATERAL SUBSEGMENTAL BRANCH TO LOWER POLE * CLOSURE DEVICE USED AT RIGHT COMMON FEMORAL ARTERY * CONSCIOUS SEDATION CLINICAL HISTORY: IR consulted for left renal active extravasation seen on CTA. Pleasant 69 year old woman with intermittent atrial fibrillation who reports starting Xarelto August 2019 and developing left flank pain a few weeks ago. Her left flank pain became intolerable yesterday; no trauma, but she reports a recent and ongoing UTI as well as exercising on her stationary recumbent bicycle; CTA prior to consult showed the left renal active extravasation. She also has Henoch-Schonlein purpura and mild renal insufficiency. No known history of cancer. LOCAL AREA NETWORK ADMINISTRATOR: Diandra Braden M.D. SECONDARY BULL RIDER: Ramos Wyatt M.D. NURSE: See RN note; Prisca. TECH: See Technologist note; Justin. MEDICATIONS: 1% Lidocaine Subcutaneously. Moderate sedation was performed by a trained interventional radiology nurse un cheryl direct physician supervision with 2.5 mg of Versed and 175 mcg fentanyl IV from 0420 hours to 0710 hours. VTE PROPHYLAXIS: None indicated for this ambulatory procedure. ANTIBIOTIC PROPHYLAXIS: None indicated FLUORO TIME/RADIATION DOSE: 31. 8 minutes, Air Kerma of 6707 mGy[place] [address] uGy-m^2 COMPLICATIONS: None immediately. PATIENT CONDITION: Stable. COMPARISON: 02/04/[address] chest, 10/12/2019 outside CTA abdomen/pelvis TECHNIQUE: The patient was identi fied. After the risks and benefits of the procedure were discussed with the patient, an informed written consent was obtained. The patient was then brought back to interventional suite and placed supine on the table. Appropriate time out was per formed to confirm patient identity and planned procedure. The patient was then prepped and draped in the normal sterile fashion. Strict hand hygiene protocol was observed with the operators doing a surgical hand scrub. All personnel in the [facility] were attired in surgical hat and mask. The operators were in surgical hat, mask, sterile gloves and gowns. The sites were prepped with 2% chlorhexidine for cutaneous antisepsis, followed by sterile barrier draping. Conscious sedation was initi ated. AORTOGRAM AND LEFT RENAL ARTERIOGRAPHY AND EMBOLIZATION: The right common femoral artery was accessed with a micropuncture set. A 5 Fr vascular sheath was then placed within the artery. A DSA (Digital Subtraction Angiography) was perfo rmed through the sheath in the common femoral artery. Over an 0.035 in guidewire, a 5 [place] Contra 2 was not successful at selecting the left renal arteries, and so a 5 [place] Omniflush was advanced to T12, above the renal arteries. Aortogram s howed the locations of the two left renal arteries, superoposterior and anteroinferior, and no active extravasation, blush, or pseudoaneurysm was seen. Then, the Omniflush was exchanged for the Contra 2 catheter which was advanced into the lef t superoposterior renal artery; DSA showed no active extravasation, blush, or pseudoaneurysm. After further more peripheral selection of the main branch of the left superoposterior renal artery with the Progreat microcatheter, still no active ex travasation, blush, or pseudoaneurysm was seen. Therefore, the Contra 2 was used to select the left anteroinferior renal artery; DSA showed at least 4-5 sites of active extravasation at the mid to lower renal pole, of varying severity. After p lacement of the Progreat microcatheter more peripherally in the main branch of the left anteroinferior renal artery, it was noted that the greatest extravasation was from the inferoanterior left renal artery inferolateral subsegmental branch to the lower pole, with a bare spot in this region of the lower pole, in keeping with a known renal cyst, which previously measured simple fluid density on 02/04/[address] chest but measured blood density on 10/12/2019 outside CTA abdomen/ pelvis. It was attempted to select this branch with a microcatheter, but first selected was the inferoanterior left renal artery inferomedial subsegmental branch to lower pole; DSA at this branch showed no active extravasation, blush, or pseudoa neurysm at these terminal branches, but did show active extravasation upon reflux into the targeted branch. Next, the targeted branch--the inferoanterior left renal artery inferolateral subsegmental branch to lower pole--was selected, with DSA confirming prompt active extravasation. The vessel was more peripherally selected to spare as much non-target renal parenchyma as possible, and satisfactory position was confirmed on DSA; this branch was embolized to stasis with [place]. Post embo lization DSA of the left anteroinferior renal artery through the Contra 2 demonstrated no active extravasation, blush, or pseudoaneurysm at the target vessel, with slightly enlarged area of parenchymal non-filling defect, in keeping with embol ization of this renal sub-segment. Post-embolization DSA also showed additional 3 areas of slow-flow active extravasation at branches involving about 50% of the left renal parenchyma. Branches supplying the largest of these--the inferoanterior l eft renal artery lateral inferior subsegmental branch to lower pole and the inferoanterior left renal artery lateral superior subsegmental branch to lower pole--were serially selected, but DSA confirmed that the active extravasation was slow-tam w. Given these findings, it was decided that the risk of harm to the [place] renal parenchyma in this patient with existing renal insufficiency exceeded the likely gain from embolization at this time. All catheters were removed. The vascular s cyril was removed. AngioSeal VIP was used for vascular closure with no hematoma. A sterile dressing was placed. The patient tolerated the procedure well, with no immediate complication. The patient was transferred to recovery in stable condit ion. The findings were discussed with the patient's family, son Jesus Manuel and daughter Caitlyn, in person after the case. These findings were discussed by executive vice president and chief financial officer Dr. Ramos Wyatt with trauma surgery ICU member Dr. Shaw at 0755 hours on . FINDINGS: As above. IMPRESSION: 1. Two left renal arteries; active extravasation of varying degree from mid to lower pole multiple branches (4-5) of the anteroinferior left renal artery. 2. Successful angiography and emboliz ation of the site of brisk active extravasation--possibly bleeding into her known left renal cyst--at the inferoanterior left renal artery inferolateral subsegmental branch to lower pole. 3. Other sites of active extravasation were noted to be slow-flow, with the two most suspicious sites interrogated and this finding confirmed on DSA. 4. Given these findings, it was decided that the risk of harm to the [place] renal parenchyma in this patient with existing renal insufficiency exc eeded the likely gain from embolization of multiple sites at thistime. RECOMMENDATIONS: * Given the embolization of the major site of active extravasation (left renal artery, lower pole branch, inferoanterior left renal artery inferolateral subsegmental branch to lower pole) but non-embolization of other sites of slow-flow active extravasation in order to spare renal parenchyma, IR recommendation is to not restart anticoagulation/antiplatelets except under very close monitoring and with a low threshold to discontinue them. * Per her family, the patient's Xarelto is for treating atrial fibrillation which is intermittent. It may be helpful to explore other options for decreasing stroke risk, such as cardiac ablation and/ or left atrial appendage closure. * This patient has a difficult situation. Any future anticoagulation/antiplatelets must be carefully weighed against her bleeding risk--particularly as noted at this left kidney--and potential further loss of renal parenchyma and renal function if additional renal tissue must be sacrificed by embolization. * MRI renal lesion protocol without and with IV contrast, perhaps in a day or two post-procedure, will likely be helpful to assess for any un derlying occult renal mass. * If the patient remains hemodynamically stable, the large perirenal hematoma can be percutaneously drained after about 2-3 weeks to try to aid recovery of the remaining left renal parenchyma, as well as for patient comfort. CRITICAL RESULT: No. COMMUNICATION: The findings were discussed with the patient's family, son Jesus Manuel and daughter Caitlyn, in person after the case. These findings were discussed by executive vice president and chief financial officer Dr. Ramos Wyatt with trauma [facility] ICU member Dr. Shaw at 0755 hours on 10/13/2019. ATTESTATION: Not Applicable. Verified by: DIANDRA BRADEN M.D. on Oct 16 2019 9:35P Transcribed by: PUMA on Oct 16 2019 9:35P Dictated by: DIANDRA BRADEN M.D. on Oct 13 2 020 8:24A Diandra Braden MD IMG IR PROCEDURES Final R esult * Extra Tubes (10/13/2019 6:25 AM EST) Extra LAVENDER TOP TUBE. WHOLE BLOOD REFRIGERATED IN LAB 72 HOURS. SUNQUEST 10/13/2019 6:25 AM EST 10/13/2019 6:25 AM EST Renny Rosado MD LAB BLOOD ORDERABLES Final Result SUNQUEST * (ABNORMAL) CBC W/O Differential (10/13/2019 6:25 AM EST) WBC Count 21.11(H) 3.7 - 10.3 k/uL SUNQUEST RBC Count 3.85(L) 3.9 - 5.2 M/uL SUNQUEST HGB 11.2 11.2 - 15.7 g/dL SUNQUEST HCT 37.1 34 - 45 % SUNQUEST Platelet Count 264 155 - 369 k/uL SUNQUEST MCV 96 79 - 98 fL SUNQUEST Comment:Results inconsistent with previous lab findings. MCH 29.1 26 - 32 pg SUNQUEST MCHC 30.2(L) 30.7 - 35.5 g/dL SUNQUEST RDW 15.3(H) 12.4 - 14.9 % SUNQUEST MPV 9.9 8.8 - 12.5 fL SUNQUEST NRBC COUNT 0.0 0 % SUNQUEST 10/13/2019 6:25 AM EST 10/13/2019 6:25 AM EST Renny Rosado MD LAB BLOOD ORDERABLES Final Result SUNQUEST * Extra Tubes (10/13/2019 1:45 AM EST) Extra GREEN TOP TUBE. PLASMA REFRIGERATED IN LAB 72 HOURS. SUNQUEST 10/13/2019 1:45 AM EST 10/13/2019 1:45 AM EST Caden Provider LAB BLOOD ORDERABLES Fadia l Result Performing Organization Address [facility] Phone Number SUNQUEST * Whole blood TEG (10/13/2019 1:35 AM EST) Whole Blood Teg CK Analysis Result Teg tracing currently viewable via Teg software. Final report to follow in MetaFLO tab for, Scanned Documents . SUNQUEST Whole Blood TEG CK Reason Indicated Massive bleeding/mass transfusion protocol (BLEED) SUNQUEST 10/13/2019 1:35 AM EST 10/13/2019 1:45 AM EST Maurice Mai MD LAB BLOOD ORDERABLES Final Result Performing Organization Address [facility] Phone Number SUNQUEST * (ABNORMAL) APTT (10/13/2019 1:35 AM EST) aPTT 38(H) 25 - 36 sec SUNQUEST 10/13/2019 1:35 AM EST 10/13/2019 1:40 AM EST Maurice Mai MD LAB BLOOD ORDERABLES Final Result Performing Organization Address [facility] Phone Number SUNQUEST * (ABNORMAL) Prothrombin Time/INR (10/13/2019 1:35 AM EST) Prothrombin Time 18.1(H) 11.9 - 14.4 sec SUNQUEST INR 1.5(H) 0.9 - 1.1 SUNQUEST Comment: (NOTE) OPTIMAL INR RANGES FOR PATIENT ON ORAL ANTICOAGULANT THERAPY Prevention of venous thromboembolism ?INR 2.0 to 3.0 In patients with heart disease: ?Atrial fibrillation ?INR 2.0 to 3.0 ?Valvular heart disease ? INR 2.0 to 3.0 ?Tissue heart valves ?INR 2.0 to 3.0 ?Mechanical prosthetic valves ? INR 2.5 to 3.5 ?Prevention of recurrent NE ? INR 2.5 to 3.5 10/13/2019 1:35 AM EST 10/13/2019 1:40 AM EST Maurice Mai MD LAB BLOOD ORDERABLES Final Result Performing Organization Address [facility] Phone Number SUNQUEST * (ABNORMAL) Fibrinogen, Quantitative (Clottable) (10/13/2019 1:35 AM EST) Fibrinogen, Quantitative (Clottable) 886(H) 208 - 459 mg/dL SUNQUEST 10/13/2019 1:35 AM EST 10/13/2019 1:40 AM EST Result [facility] Maurice Mai MD LAB BLOOD ORDERABLES Final Result Performing Organization Address [facility] Phone Number SUNQUEST * Phosphorus, Plasma (10/13/2019 1:31 AM EST) Phosphorus, Plasma 4.3 2.5 - 4.5 mg/dL SUNQUEST 10/13/2019 1:31 AM EST 10/13/2019 1:34 AM EST Result [facility] Maurice Mai MD LAB BLOOD ORDERABLES Final Result Performing Organization Address [facility] Phone Number SUNQUEST * (ABNORMAL) Magnesium, Plasma (10/13/2019 1:31 AM EST) Magnesium, Plasma 1.2(L) 1.9 - 2.4 mg/dL SUNQUEST 10/13/2019 1:31 AM EST 10/13/2019 1:34 AM EST Maurice Mai MD LAB BLOOD ORDERABLES Final Result Performing Organization Address [facility] Phone Number SUNQUEST * (ABNORMAL) Basic Metabolic Panel, Plasma (10/13/2019 1:31 AM EST) Glucose, Plasma 223(H) 74 - 99 mg/dL SUNQUEST BUN, Plasma 22 8 - 23 mg/dL SUNQUEST Creatinine, Plasma 1.35(H) 0.60 - 1.10 mg/dL SUNQUEST BUN/Creatinine Ratio 16 8 - 20 SUNQUEST Sodium, Plasma 135(L) 136 - 145 mmol/L SUNQUEST Potassium, Plasma 4.5 3.7 - 4.8 mmol/L SUNQUEST Chloride, Plasma 96(L) 97 - 107 mmol/L SUNQUEST CO2, Plasma 23 22 - 29 mmol/L SUNQUEST Anion Gap 16 6 - 16 mmol/L SUNQUEST Calcium, Plasma 9.0 8.9 - 10.2 mg/dL SUNQUEST eGFR 39 SEE NOTE SUNQUEST eGFR, if AFR/AM 47(L) >60 SEE NOTE SUNQUEST Comment: (NOTE) eGFR = estimated GFR; eGFR units = mL/min/1.73 sq meters Chronic Kidney Disease is considered if eGFR <60 mL/min/1.73 sq meters Kidney failure is considered if eGFR is <15 mL/min/1.73 sq meters. eGFR assumes steady state plasma creatinine concentration; not applicable if renal function is rapidly changing or patient is on dialysis. 10/13/2019 1:31 AM EST 10/13/2019 1:34 AM EST us Maurice Mai MD LAB BLOOD ORDERABLES Final Result SUNQUEST * (ABNORMAL) CBC W/O Differential (10/13/2019 1:31 AM EST) WBC Count 25.05(H) 3.7 - 10.3 k/uL SUNQUEST RBC Count 3.61(L) 3.9 - 5.2 M/uL SUNQUEST HGB 10.8(L) 11.2 - 15.7 g/dL SUNQUEST HCT 32.7(L) 34 - 45 % SUNQUEST Platelet Count 302 155 - 369 k/uL SUNQUEST MCV 91 79 - 98 fL SUNQUEST MCH 29.9 26 - 32 pg SUNQUEST MCHC 33.0 30.7 - 35.5 g/dL SUNQUEST RDW 14.2 12.4 - 14.9 % SUNQUEST MPV 9.8 8.8 - 12.5 fL SUNQUEST NRBC COUNT 0.0 0 % SUNQUEST 10/13/2019 1:31 AM EST 10/13/2019 1:34 AM EST us Maurice Mai MD LAB BLOOD ORDERABLES Final Result SUNQUEST documented in this encounter Visit Diagnoses Diagnosis Hemoperitoneum Hemoperitoneum (nontraumatic) documented in this encounter
--- OUTSIDE RECORDS SUMMARY | 2024-08-02 15:16 | XMS_ITS | Encounter Summary ---
Author Organization Healthcare Address [address] [place] [address] Care Team Providers Care Sound Editor Name Role Phone Unavailable Primary Care Provider Unavailabl e Encounter Details Date Type Department Care Team (Late Contact Info) Description 06/29/2019 [facility] Encounter HISTORICAL OPHTHALMOLOGY [address] [place] [address] Luis Olivares MD [address] [address] Social History Tobacco Use Types Packs/Day Years Used Date Smoking Tobacco: Never Assessed Comments Unknown Sex and Gender Information Value Date Recorded Sex Assigned at Not on file Legal Sex Female 8:26 PM EDT Gender Identity Not on file Sexual Orientation Not on file documented as of this encounter Plan of Treatment Upcoming Encounters Date Type Department Care Team ([facility] Contact Info) Description 08/08/2024 1:00 PM EST Office Visit [facility] Nephrology, Bone & Mineral Metabolism [address] [facility], [address] [place] [address] Diana Ahumada MD 800 [place] [address] 12/30/2024 10:15 AM EDT Office Visit [facility] Eye Care [address] [place] [address] Luis Olivares MD [address] [address] documented as of this encounter Visit Diagnoses Not on filedocumented in this encounter Additional Health Concerns Infection Onset Date Last Indicated Resolved Time Meningitis Rule-Out 11/24/2019 12/01/2019 01/14/20 21 5:23 AM EDT documented as of this encounter
--- OUTSIDE RECORDS SUMMARY | 2024-08-02 15:16 | XMS_ITS | Encounter Summary ---
Author Organization [facility] Address [address] [place] [address] Care Team Providers Care Bisque Placer Name Role Phone Unavailable Primary Care Provider Unavailabl e Encounter Details Date Type Department Care Team (Late Contact Info) Description 02/12/2017 [facility] Encounter [facility] [address] [place] [address] ProviderCaden MD [address] [place] [address] Social History Tobacco Use Types Packs/Day [...] - Inhaled Oxygen Concentration - - Weight 138 kg (304 lb 7.3 oz) 02/12/2017 9:53 AM EDT Height 160 cm (5' 3 ) 02/12/2017 9:53 AM EDT Body Mass Index 53.93 02/12/2017 9:53 AM EDT documented in this encounter Plan of Treatment Upcoming Encounters Date Type Department Care Team (Late Contact Info) Description 08/08/2024 1:00 PM EST Office Visit [facility] Nephrology, Bone & Mineral Metabolism [address] [facility], [address] [place] [address] Diana Ahumada MD 800 [place] [address] 12/30/2024 10:15 AM EDT Office Visit [facility] Eye Care [address] [place] [address] Luis Olivares MD [address] [place] [address] documented as of this encounter Visit Diagnoses Not on filedocumented in this encounter
--- OUTSIDE RECORDS SUMMARY | 2024-08-02 15:16 | XMS_ITS | Encounter Summary ---
Author Organization [facility] Address [address] [place] [address] Care Team Providers Care Payloader Operator Name Role Phone Unavailable Primary Care Provider Unavailabl e Encounter Details Date Type Department Care Team (Late Contact Info) Description 04/09/2017 [facility] En[facility] [address] [place] [address] ProviderCaden MD [address] [place] [address] Social History Tobacco Use Types Packs/Day [...] - - Weight 134 kg (296 lb 4.8 oz) 04/09/2017 10:13 A M EDT Height 160 cm (5' 3 ) 04/09/2017 10:13 AM EDT Body Mass Index 52.49 04/09/2017 10:13 AM EDT documented in this encounter Plan of Treatment Upcoming Encounters Date Type Department Care Team (Late Contact Info) Description 08/08/2024 1:00 PM EST Office Visit [facility] Nephrology, Bone & Mineral Metabolism [address] [facility], [address] [place] [address] Diana Ahumada MD 800 [place] [address] 12/30/2024 10:15 AM EDT Office Visit [facility] Eye Care [address] [place] [address] Luis Olivares MD [address] [place] [address] documented as of this encounter Visit Diagnoses Not on filedocumented in this encounter
--- OUTSIDE RECORDS SUMMARY | 2024-08-02 15:16 | XMS_ITS | Encounter Summary ---
Author Organization Healthcare Address [address] [place] [address] Care Team Providers Care Vehicle Operator Name Role Phone Unavailable Primary Care Provider Unavailabl e Encounter Details Date Type Department Care Team (Late Contact Info) Description 06/07/2019 [facility] Encounter HISTORICAL OPHTHALMOLOGY [address] [place] [address] Luis Olivares MD [address] [address] Social History Tobacco Use Types Packs/Day Years Used Date Smoking Tobacco: Never Assessed Comments Unknown Sex and Gender Information Value Date Recorded Sex Assigned at Not on file Legal Sex Female 8:26 PM EDT Gender Identity Not on file Sexual Orientation Not on file documented as of this encounter Plan of Treatment Upcoming Encounters Date Type Department Care Team ([facility] Contact Info) Description 08/08/2024 1:00 PM EST Office Visit [facility] Nephrology, Bone & Mineral Metabolism [address] [facility], [address] [place] [address] Diana Ahumada MD 800 [place] [address] 12/30/2024 10:15 AM EDT Office Visit [facility] Eye Care 110 [place] [address] Luis Olivares MD [address] [address] documented as of this encounter Visit Diagnoses Not on filedocumented in this encounter Additional Health Concerns Infection Onset Date Last Indicated Resolved Time Meningitis Rule-Out 11/24/2019 12/01/2019 01/14/20 21 5:23 AM EDT documented as of this encounter
--- OUTSIDE RECORDS SUMMARY | 2024-08-02 15:16 | XMS_ITS | Encounter Summary ---
Author Organization Healthcare Address [address] [place] [address] Care Team Providers Care Dyeing Machine Back Tender Name Role Phone Unavailable Primary Care Provider Unavailabl e Encounter Details Date Type Department Care Team (Late Contact Info) Description 01/28/2017 [facility] Vit[facility] En[facility] [address] [place] [address] ProviderCaden MD [address] [place] [address] Social History Tobacco Use Types Packs/Day [...] Oxygen Concentration - - Weight 138 kg (305 lb 2.2 oz) 01/28/2017 8:05 AM EDT Height - - Body Mass Index 54.05 01/20/2017 8:31 AM EDT documented in this encounter Plan of Treatment Upcoming Encounters Date Type Department Care Team (Late Contact Info) Description 08/08/2024 1:00 PM EST Office Visit [facility] Nephrology, Bone & Mineral Metabolism [address] [facility], [address] [place] [address] Diana Ahumada MD 800 [place] [address] 12/30/2024 10:15 AM EDT Office Visit [facility] Eye Care [address] [place] [address] Luis Olivares MD [address] [place] [address] documented as of this encounter Visit Diagnoses Not on filedocumented in this encounter
--- OUTSIDE RECORDS SUMMARY | 2024-08-02 15:16 | XMS_ITS | Encounter Summary ---
Author Organization Healthcare Address [address] [place] [address] Care Team Providers Care Field Training Manager Name Role Phone Unavailable Primary Care Provider Unavailabl e Encounter Details Date Type Department Care Team (Late Contact Info) Description 01/20/2017 [facility] Vit[facility] Encounter [facility] [address] [place] [address] ProviderCaden MD [address] [place] [address] Social History Tobacco Use Types Packs/Day [...] - - Weight 136 kg (300 lb) 01/20/2017 8:31 AM EDT Height 160 cm (5' 3 ) 01/20/2017 8:31 AM EDT Body Mass Index 53.14 01/20/2017 8:31 AM EDT documented in this encounter Plan of Treatment Upcoming Encounters Date Type Department Care Team (Late Contact Info) Description 08/08/2024 1:00 PM EST Office Visit [facility] Nephrology, Bone & Mineral Metabolism [address] [facility] [place], [address] [place] [address] Diana Ahumada MD 800 [place] [address] 12/30/2024 10:15 AM EDT Office Visit [facility] Eye Care [address] [place] [address] Luis Olivares MD [address] [place] [address] documented as of this encounter Visit Diagnoses Not on filedocumented in this encounter
--- OUTSIDE RECORDS SUMMARY | 2024-08-02 15:16 | XMS_ITS | Encounter Summary ---
Author Organization Healthcare Address [address] [place] [address] Care Team Providers Care Non Profit Director Name Role Phone Unavailable Primary Care Provider Unavailabl e Encounter Details Date Type Department Care Team (Late Contact Info) Description 05/25/2019 [facility] Encounter HISTORICAL OPHTHALMOLOGY [address] [place] [address] Luis Olivares MD [address] [address] Social History Tobacco Use Types [...] Description 08/08/2024 1:00 PM EST Office Visit [facility] Nephrology, Bone & Mineral Metabolism [address] [facility], [address] [place] [address] Diana Ahumada MD 800 [place] [address] 12/30/2024 10:15 AM EDT Office Visit [facility] Eye Care 110 [place] [address] Luis Olivares MD [address] [address] documented as of this encounter Visit Diagnoses Not on filedocumented in this encounter Additional Health Concerns Infection Onset Date Last Indicated Resolved Time Meningitis Rule-Out 11/24/2019 12/01/2019 01/14/20 21 5:23 AM EDT documented as of this encounter
--- OUTSIDE RECORDS SUMMARY | 2024-08-02 15:16 | XMS_ITS | Encounter Summary ---
Author Organization [facility] Address [address] [place] [address] Care Team Providers Care Steam Roller Operator Name Role Phone Unavailable Primary Care Provider Unavailabl e Encounter Details Date Type Department Care Team (Late Contact Info) Description 06/05/2017 [facility] Vit[facility] Encounter [facility] 800 [place] [address] ProviderCaden MD [address] [place] [address] Social History Tobacco Use Types Packs/Day [...] Oxygen Concentration - - Weight 136 kg (299 lb 6.2 oz) 06/05/2017 4:29 PM EDT Height 160 cm (5' 3 ) 06/05/2017 4:29 PM EDT Body Mass Index 53.03 06/05/2017 4:29 PM EDT documented in this encounter Plan of Treatment Upcoming Encounters Date Type Department Care Team (Late Contact Info) Description 08/08/2024 1:00 PM EST Office Visit [facility] Nephrology, Bone & Mineral Metabolism [address] [facility], [address] [place] [address] Diana Ahumada MD 800 [place] [address] 12/30/2024 10:15 AM EDT Office Visit [facility] Eye Care [address] [place] [address] Luis Olivares MD [address] [place] [address] documented as of this encounter Visit Diagnoses Not on filedocumented in this encounter
--- OUTSIDE RECORDS SUMMARY | 2024-08-02 15:16 | XMS_ITS | Encounter Summary ---
Author Organization Healthcare Address [address] [place] [address] Care Team Providers Care Canoe Inspector Name Role Phone Unavailable Primary Care Provider Unavailabl e Encounter Details Date Type Department Care Team (Late Contact Info) Description 02/04/2017 [facility] Encounter [facility] [address] [place] [address] ProviderCaden MD [address] [place] [address] Social History Tobacco Use Types Packs/Day [...] Weight 137 kg (300 lb 15.9 oz) 02/04/2017 4:21 P M EDT Height 160 cm (5' 3 ) 02/04/2017 4:21 PM EDT Body Mass Index 53.32 02/04/2017 4:21 PM EDT documented in this encounter Plan of Treatment Upcoming Encounters Date Type Department Care Team (Late Contact Info) Description 08/08/2024 1:00 PM EST Office Visit Professional [facility] Nephrology, Bone & Mineral Metabolism [address] [facility], [address] [place] [address] Diana Ahumada MD 800 [place] [address] 12/30/2024 10:15 AM EDT Office Visit [facility] Eye Care [address] [place] [address] Luis Olivares MD [address] [place] [address] documented as of this encounter Visit Diagnoses Not on filedocumented in this encounter
--- OUTSIDE RECORDS SUMMARY | 2024-08-02 15:16 | XMS_ITS | Encounter Summary ---
Author Organization Healthcare Address [address] [place] [address] Care Team Providers Care Education Administrative Assistant Name Role Phone Unavailable Primary Care Provider Unavailabl e Encounter Details Date Type Department Care Team (Late Contact Info) Description 07/06/2019 [facility] Encounter HISTORICAL OPHTHALMOLOGY 800 [place] [address] Luis Olivares MD [address] [address] Social History Tobacco Use Types Packs/Day Years Used Date Smoking Tobacco: Never Assessed Comments Unknown Sex and Gender Information Value Date Recorded Sex Assigned at Not on file Legal Sex Female 8:26 PM EDT Gender Identity Not on file Sexual Orientation Not on file documented as of this encounter Plan of Treatment Upcoming Encounters Date Type Department Care Team ([facility] Contact Info) Description 08/08/2024 1:00 PM EST Office Visit [facility] Nephrology, Bone & Mineral Metabolism [address] [facility], [address] [place] [address] Diana Ahumada MD 800 [place] [address] 12/30/2024 10:15 AM EDT Office Visit [facility] Eye Care 110 [place] [address] Luis Olivares MD [address] [address] documented as of this encounter Visit Diagnoses Not on filedocumented in this encounter Additional Health Concerns Infection Onset Date Last Indicated Resolved Time Meningitis Rule-Out 11/24/2019 12/01/2019 01/14/20 21 5:23 AM EDT documented as of this encounter
--- OUTSIDE RECORDS SUMMARY | 2024-08-02 15:16 | XMS_ITS | Encounter Summary ---
Author Organization Healthcare Address [address] [place] [address] Care Team Providers Care Condemnation Engineer Name Role Phone Unavailable Primary Care Provider Unavailabl e Encounter Details Date Type Department Care Team (Late Contact Info) Description 04/18/2019 [facility] Encounter HISTORICAL OPHTHALMOLOGY [address] [place] [address] Luis Olivares MD [address] [address] Social History Tobacco Use Types Packs/Day Years Used Date Smoking Tobacco: Never Assessed Comments Unknown Sex and Gender Information Value Date Recorded Sex Assigned at Not on file Legal Sex Female 8:26 PM EDT Gender Identity Not on file Sexual Orientation Not on file documented as of this encounter Plan of Treatment Upcoming Encounters Date Type Department Care Team ([facility] Contact Info) Description 08/08/2024 1:00 PM EST Office Visit [facility] Nephrology, Bone & Mineral Metabolism [address] [facility], [address] [place] [address] Diana Ahumada MD 800 [place] [address] 12/30/2024 10:15 AM EDT Office Visit [facility] Eye Care 110 [place] [address] Luis Olivares MD [address] [address] documented as of this encounter Visit Diagnoses Not on filedocumented in this encounter Additional Health Concerns Infection Onset Date Last Indicated Resolved Time Meningitis Rule-Out 11/24/2019 12/01/2019 01/14/20 21 5:23 AM EDT documented as of this encounter
--- OUTSIDE RECORDS SUMMARY | 2024-08-02 15:17 | XMS_ITS | Encounter Summary ---
Author Organization Healthcare Address [address] [place] [address] Care Team Providers Care Ethics Instructor Name Role Phone Unavailable Primary Care Provider Unavailabl e Encounter Details Date Type Department Care Team (Late Contact Info) Description 07/11/2016 [facility] AEHR Vitals Encounter [facility] 800 [place] [address] ProviderCaden MD [address] [place] [address] Social History Tobacco Use Types Packs/Day [...] - - Weight 136 kg (300 lb) 07/11/2016 9:25 AM EDT Height 160 cm (5' 3 ) 07/11/2016 9:25 AM EDT Body Mass Index 53.14 07/11/2016 9:25 AM EDT documented in this encounter Plan of Treatment Upcoming Encounters Date Type Department Care Team (Late Contact Info) Description 08/08/2024 1:00 PM EST Office Visit Professional [facility] Nephrology, Bone & Mineral Metabolism [address] [facility], [address] [place] [address] Diana Ahumada MD 800 [place] [address] 12/30/2024 10:15 AM EDT Office Visit [facility] [address] [place] [address] Luis Olivares MD [address] [place] [address] documented as of this encounter Visit Diagnoses Not on filedocumented in this encounter
--- OUTSIDE RECORDS SUMMARY | 2024-08-02 15:17 | XMS_ITS | Encounter Summary ---
Author Organization Healthcare Address [address] [place] [address] Care Team Providers Care Sling Operator Name Role Phone Unavailable Primary Care Provider Unavailabl e Encounter Details Date Type Department Care Team (Late Contact Info) Description 05/11/2015 [facility] AEHR Vitals Encounter [facility] 800 [place] [address] ProviderCaden MD [address] [place] [address] Social History Tobacco Use Types Packs/Day [...] - Inhaled Oxygen Concentration - - Weight 129 kg (284 lb) 05/11/2015 10:56 AM EDT Height 160 cm (5' 3 ) 05/11/2015 10:56 AM EDT Body Mass Index 50.31 05/11/2015 10:56 AM EDT documented in this encounter Plan of Treatment Upcoming Encounters Date Type Department Care Team (Late Contact Info) Description 08/08/2024 1:00 PM EST Office Visit Professional [facility] Nephrology, Bone & Mineral Metabolism [address] [facility], [address] [place] [address] Diana Ahumada MD 800 [place] [address] 12/30/2024 10:15 AM EDT Office Visit [facility] Eye Care [address] [place] [address] Luis Olivares MD [address] [place] [address] documented as of this encounter Visit Diagnoses Not on filedocumented in this encounter
--- OUTSIDE RECORDS SUMMARY | 2024-08-02 15:17 | XMS_ITS | Encounter Summary ---
Author Organization [facility] Address [address] [place] [address] Care Team Providers Care Finishing Range Operator Name Role Phone Unavailable Primary Care Provider Unavailabl e Encounter Details Date Type Department Care Team (Late Contact Info) Description 12/19/2015 Legacy AEHR Vitals Encounter [facility] 800 [place] [address] ProviderCaden MD [address] [place] [address] Social History Tobacco Use Types Packs/Day [...] - Inhaled Oxygen Concentration - - Weight 131 kg (288 lb 0.1 oz) 12/19/2015 3:46 PM EDT Height 160 cm (5' 3 ) 12/19/2015 3:46 PM EDT Body Mass Index 51.02 12/19/2015 3:46 PM EDT documented in this encounter Plan of Treatment Upcoming Encounters Date Type Department Care Team (Late Contact Info) Description 08/08/2024 1:00 PM EST Office Visit Professional [facility] Nephrology, Bone & Mineral Metabolism [address] [facility], [address] [place] [address] Diana Ahumada MD 800 [place] [address] 12/30/2024 10:15 AM EDT Office Visit [facility] Care [address] [place] [address] Luis Olivares MD [address] [place] [phone] documented as of this encounter Visit Diagnoses Not on filedocumented in this encounter
--- OUTSIDE RECORDS SUMMARY | 2024-08-02 15:17 | XMS_ITS | Encounter Summary ---
Author Organization Healthcare Address [address] [place] [address] Care Team Providers Care Special Services Agent Name Role Phone Unavailable Primary Care Provider Unavailabl e Encounter Details Date Type Department Care Team (Late Contact Info) Description 11/22/2015 Legacy AEHR Vitals Encounter [facility] 800 [place] [address] ProviderCaden MD [address] [place] [address] Social History Tobacco Use Types Packs/Day [...] Oxygen Concentration - - Weight 131 kg (289 lb) 11/22/2015 3:08 PM EDT Height 160 cm (5' 3 ) 11/22/2015 3:08 PM EDT Body Mass Index 51.19 11/22/2015 3:08 PM EDT documented in this encounter Plan of Treatment Upcoming Encounters Date Type Department Care Team (Late Contact Info) Description 08/08/2024 1:00 PM EST Office Visit Professional [facility] Nephrology, Bone & Mineral Metabolism [address] [facility], [address] [place] [address] Diana Ahumada MD 800 [place] [address] 12/30/2024 10:15 AM EDT Office Visit [facility] Eye Care [address] [place] [address] Luis Olivares MD [address] [place] [address] documented as of this encounter Visit Diagnoses Not on filedocumented in this encounter
--- OUTSIDE RECORDS SUMMARY | 2024-08-02 15:17 | XMS_ITS | Encounter Summary ---
Author Organization Healthcare Address [address] [place] [address] Care Team Providers Care Absorber Operator Name Role Phone Unavailable Primary Care Provider Unavailabl e Encounter Details Date Type Department Care Team (Late Contact Info) Description 05/30/2016 Legacy AEHR Vitals Encounter [facility] 800 [place] [address] ProviderCaden MD [address] [place] [address] Social History Tobacco Use Types Packs/Day [...] - - Weight 136 kg (300 lb) 05/30/2016 3:57 PM EDT Height 160 cm (5' 3 ) 05/30/2016 3:57 PM EDT Body Mass Index 53.14 05/30/2016 3:57 PM EDT documented in this encounter Plan of Treatment Upcoming Encounters Date Type Department Care Team (Late Contact Info) Description 08/08/2024 1:00 PM EST Office Visit Professional [facility] Nephrology, Bone & Mineral Metabolism [address] [facility], [address] [place] [address] Diana Ahumada MD 800 [place] [address] 12/30/2024 10:15 AM EDT Office Visit [facility] Care [address] [place] [address] Luis Olivares MD [address] [place] [address] documented as of this encounter Visit Diagnoses Not on filedocumented in this encounter
--- OUTSIDE RECORDS SUMMARY | 2024-08-02 15:17 | XMS_ITS | Encounter Summary ---
Author Organization [facility] Address [address] [place], [place] [address] Care Team Providers Care Wellness Coach Name Role Phone Unavailable Primary Care Provider Unavailabl e Encounter Details Date Type Department Care Team (Late Contact Info) Description 11/22/2014 Legacy AEHR Vitals Encounter [facility] 800 [place] [address] ProviderCaden MD [address] [place] [address] Social History Tobacco Use Types Packs/Day [...] - - Weight 127 kg (279 lb 12.2 oz) 11/22/2014 4:00 P M EDT Height 171.5 cm (5' 7.5 ) 11/22/2014 4:00 PM EDT Body Mass Index 43.17 11/22/2014 4:00 PM EDT documented in this encounter Plan of Treatment Upcoming Encounters Date Type Department Care Team (Late Contact Info) Description 08/08/2024 1:00 PM EST Office Visit Professional [facility] Nephrology, Bone & Mineral Metabolism [address] [facility], [address] [place] [address] Diana Ahumada MD 800 [place] [address] 12/30/2024 10:15 AM EDT Office Visit [facility] Eye Care [address] [place] [address] Luis Olivares MD [address] [place] [address] documented as of this encounter Visit Diagnoses Not on filedocumented in this encounter
--- OUTSIDE RECORDS SUMMARY | 2024-08-02 15:17 | XMS_ITS | Encounter Summary ---
Author Organization [facility] Address [address] [place] [address] Care Team Providers Care Lathe Machinist Name Role Phone Unavailable Primary Care Provider Unavailabl e Encounter Details Date Type Department Care Team (Late Contact Info) Description 05/27/2016 Legacy AEHR Vitals Encounter [facility] 800 [place] [address] ProviderCaden MD [address] [place] [address] Social History Tobacco Use Types Packs/Day [...] Oxygen Concentration - - Weight 138 kg (303 lb 15.9 oz) 05/27/2016 4:10 P M EDT Height 160 cm (5' 3 ) 05/27/2016 4:10 PM EDT Body Mass Index 53.85 05/27/2016 4:10 PM EDT documented in this encounter Plan of Treatment Upcoming Encounters Date Type Department Care Team (Late Contact Info) Description 08/08/2024 1:00 PM EST Office Visit Professional [facility] Nephrology, Bone & Mineral Metabolism [address] [facility], [address] [place] [address] Diana Ahumada MD 800 [place] [address] 12/30/2024 10:15 AM EDT Office Visit [facility] Eye Care [address] [place] [address] Luis Olivares MD [address] [place] [address] documented as of this encounter Visit Diagnoses Not on filedocumented in this encounter
--- OUTSIDE RECORDS SUMMARY | 2024-08-02 15:17 | XMS_ITS | Encounter Summary ---
Author Organization Healthcare Address [address] [place], [place] [id number] Care Team Providers Care Composition Professor Name Role Phone Unavailable Primary Care Provider Unavailabl e Encounter Details Date Type Department Care Team (Late Contact Info) Description 04/06/2015 Legacy AEHR Vitals Encounter [facility] 800 [place] [address] ProviderCaden MD [address] [place] [address] Social History Tobacco Use Types Packs/Day [...] Concentration - - Weight 129 kg (285 lb 0.2 oz) 04/06/2015 3:13 PM EDT Height 171.5 cm (5' 7.5 ) 04/06/2015 3:13 PM EDT Body Mass Index 43.98 04/06/2015 3:13 PM EDT documented in this encounter Plan of Treatment Upcoming Encounters Date Type Department Care Team (Late Contact Info) Description 08/08/2024 1:00 PM EST Office Visit Professional [facility] Nephrology, Bone & Mineral Metabolism [address] [facility], [address] [place] [address] Diana Ahumada MD 800 [place], [place] [address] 12/30/2024 10:15 AM EDT Office Visit [facility] Eye Care [address] [place] [address] Luis Olivares MD [address] [place] [address] documented as of this encounter Visit Diagnoses Not on filedocumented in this encounter
--- OUTSIDE RECORDS SUMMARY | 2024-08-02 15:17 | XMS_ITS | Encounter Summary ---
Author Organization [facility] Address [address] [place] [address] Care Team Providers Care Political Worker Name Role Phone Unavailable Primary Care Provider Unavailabl e Encounter Details Date Type Department Care Team (Late Contact Info) Description 05/04/2015 Legacy AEHR Vitals Encounter [facility] 800 [place] [address] ProviderCaden MD [address] [place] [address] Social History Tobacco Use Types Packs/Day [...] - Inhaled Oxygen Concentration - - Weight 128 kg (281 lb 8.1 oz) 05/04/2015 3:21 PM EDT Height 160 cm (5' 3 ) 05/04/2015 3:21 PM EDT Body Mass Index 49.87 05/04/2015 3:21 PM EDT documented in this encounter Plan of Treatment Upcoming Encounters Date Type Department Care Team (Late Contact Info) Description 08/08/2024 1:00 PM EST Office Visit Professional [facility] Nephrology, Bone & Mineral Metabolism [address] [facility], [address] [place] [address] Diana Ahumada MD 800 [place] [address] 12/30/2024 10:15 AM EDT Office Visit [facility] Eye Care [address] [place] [address] Luis Olivares MD [address] [place] [phone] documented as of this encounter Visit Diagnoses Not on filedocumented in this encounter
--- OUTSIDE RECORDS SUMMARY | 2024-08-02 15:17 | XMS_ITS | Encounter Summary ---
Author Organization Healthcare Address [address] [place], [place] [address] Care Team Providers Care Application Services Manager Name Role Phone Unavailable Primary Care Provider Unavailabl e Encounter Details Date Type Department Care Team (Late Contact Info) Description 01/13/2014 Legacy AEHR Vitals Encounter [facility] 800 [place] [address] ProviderCaden MD [address] [place] [address] Social History Tobacco Use Types Packs/Day [...] - Inhaled Oxygen Concentration - - Weight 114 kg (252 lb 0.1 oz) 01/13/2014 7:52 AM EDT Height 171.5 cm (5' 7.5 ) 01/13/2014 7:52 AM EDT Body Mass Index 38.89 01/13/2014 7:52 AM EDT documented in this encounter Plan of Treatment Upcoming Encounters Date Type Department Care Team (Late Contact Info) Description 08/08/2024 1:00 PM EST Office Visit Professional [facility] Nephrology, Bone & Mineral Metabolism [address] [facility], [address] [place] [address] Diana Ahumada MD 800 [place] [address] 12/30/2024 10:15 AM EDT Office Visit [facility] Eye Care [address] [place] [address] Luis Olivares MD [address] [place] [phone] documented as of this encounter Visit Diagnoses Not on filedocumented in this encounter
--- OUTSIDE RECORDS SUMMARY | 2024-08-02 15:17 | XMS_ITS | Encounter Summary ---
Author Organization [facility] Address [address] [place] [address] Care Team Providers Care Traffic Technician Name Role Phone Unavailable Primary Care Provider Unavailabl e Encounter Details Date Type Department Care Team (Late Contact Info) Description 05/21/2016 Legacy AEHR Vitals Encounter [facility] 800 [place] [address] ProviderCaden MD [address] [place] [address] Social History Tobacco Use Types Packs/Day [...] Concentration - - Weight 136 kg (300 lb 1.1 oz) 05/21/2016 9:27 AM EDT Height 160 cm (5' 3 ) 05/21/2016 9:27 AM EDT Body Mass Index 53.15 05/21/2016 9:27 AM EDT documented in this encounter Plan of Treatment Upcoming Encounters Date Type Department Care Team (Late Contact Info) Description 08/08/2024 1:00 PM EST Office Visit Professional [facility] Nephrology, Bone & Mineral Metabolism [address] [facility], [address] [place] [address] Diana Ahumada MD 800 [place] [address] 12/30/2024 10:15 AM EDT Office Visit [facility] Eye Care [address] [place] [address] Luis Olivares MD [address] [place] [phone] documented as of this encounter Visit Diagnoses Not on filedocumented in this encounter
--- OUTSIDE RECORDS SUMMARY | 2024-08-02 15:17 | XMS_ITS | Encounter Summary ---
Author Organization [facility] Address [address] [place] [address] Care Team Providers Care Nuclear Officer Name Role Phone Unavailable Primary Care Provider Unavailabl e Encounter Details Date Type Department Care Team (Late Contact Info) Description 10/09/2015 Legacy AEHR Vitals Encounter [facility] 800 [place] [address] ProviderCaden MD [address] [place] [address] Social History Tobacco Use Types Packs/Day [...] - Inhaled Oxygen Concentration - - Weight 123 kg (271 lb 0.2 oz) 10/09/2015 4:14 PM EST Height 160 cm (5' 3 ) 10/09/2015 4:14 PM EST Body Mass Index 48.01 10/09/2015 4:14 PM EST documented in this encounter Plan of Treatment Upcoming Encounters Date Type Department Care Team (Late Contact Info) Description 08/08/2024 1:00 PM EST Office Visit Professional [facility] Nephrology, Bone & Mineral Metabolism [address] [facility], [address] [place] [address] Diana Ahumada MD 800 [place] [address] 12/30/2024 10:15 AM EDT Office Visit [facility] Eye Care [address] [place] [address] Luis Olivares MD [address] [place] [address] documented as of this encounter Visit Diagnoses Not on filedocumented in this encounter
--- OUTSIDE RECORDS SUMMARY | 2024-08-02 15:17 | XMS_ITS | Encounter Summary ---
Author Organization [facility] Address [address] [place] [address] Care Team Providers Care Thermo Cementing Folder Operator Name Role Phone Unavailable Primary Care Provider Unavailabl e Encounter Details Date Type Department Care Team (Late Contact Info) Description 07/27/2015 Legacy AEHR Vitals Encounter [facility] 800 [place] [address] ProviderCaden MD [address] [place] [address] Social History Tobacco Use Types Packs/Day [...] - Inhaled Oxygen Concentration - - Weight 125 kg (274 lb 11.1 oz) 07/27/2015 9:05 A M EST Height 160 cm (5' 3 ) 07/27/2015 9:05 AM EST Body Mass Index 48.66 07/27/2015 9:05 AM EST documented in this encounter Plan of Treatment Upcoming Encounters Date Type Department Care Team (Late Contact Info) Description 08/08/2024 1:00 PM EST Office Visit Professional [facility] Nephrology, Bone & Mineral Metabolism [address] [facility], [address] [place] [address] Diana Ahumada MD 800 [place] [address] 12/30/2024 10:15 AM EDT Office Visit [facility] Eye Care [address] [place] [address] Luis Olivares MD [address] [place] [address] documented as of this encounter Visit Diagnoses Not on filedocumented in this encounter
--- OUTSIDE RECORDS SUMMARY | 2024-08-02 15:17 | XMS_ITS | Encounter Summary ---
Author Organization [facility] Address [address] [place] [address] Care Team Providers Care Water Conservation Specialist Name Role Phone Unavailable Primary Care Provider Unavailabl e Encounter Details Date Type Department Care Team (Late Contact Info) Description 04/15/2016 Legacy AEHR Vitals Encounter [facility] 800 [place] [address] ProviderCaden MD [address] [place] [address] Social History Tobacco Use Types Packs/Day [...] - - Weight 134 kg (296 lb 8 oz) 04/15/2016 2:57 PM E DT Height 160 cm (5' 3 ) 04/15/2016 2:57 PM EDT Body Mass Index 52.52 04/15/2016 2:57 PM EDT documented in this encounter Plan of Treatment Upcoming Encounters Date Type Department Care Team (Late Contact Info) Description 08/08/2024 1:00 PM EST Office Visit Professional [facility] Nephrology, Bone & Mineral Metabolism [address] [facility], [address] [place] [address] Diana Ahumada MD 800 [place] [address] 12/30/2024 10:15 AM EDT Office Visit [facility] Eye Care [address] [place] [address] Luis Olivares MD [address] [place] [address] documented as of this encounter Visit Diagnoses Not on filedocumented in this encounter
--- OUTSIDE RECORDS SUMMARY | 2024-08-02 15:17 | XMS_ITS | Encounter Summary ---
Author Organization Healthcare Address [address] [place] [address] Care Team Providers Care Senior Compensation Consultant Name Role Phone Unavailable Primary Care Provider Unavailabl e Encounter Details Date Type Department Care Team (Late Contact Info) Description 12/13/2013 Legacy AEHR Vitals Encounter [facility] 800 [place] [address] ProviderCaden MD [address] [place] [address] Social History Tobacco Use Types Packs/Day [...] - Inhaled Oxygen Concentration - - Weight 115 kg (253 lb) 12/13/2013 12:48 PM EDT Height 156.8 cm (5' 1.75 ) 12/13/2013 12:48 PM E DT Body Mass Index 46.65 12/13/2013 12:48 PM EDT documented in this encounter Plan of Treatment Upcoming Encounters Date Type Department Care Team (Late Contact Info) Description 08/08/2024 1:00 PM EST Office Visit Professional [facility] Nephrology, Bone & Mineral Metabolism [address] [facility], [address] [place] [address] Diana Ahumada MD 800 [place] [address] 12/30/2024 10:15 AM EDT Office Visit [facility] Eye Care [address] [place] [address] Luis Olivares MD [address] [place] [phone] documented as of this encounter Visit Diagnoses Not on filedocumented in this encounter
--- OUTSIDE RECORDS SUMMARY | 2024-08-02 15:17 | XMS_ITS | Encounter Summary ---
Author Organization Healthcare Address [address] [place] [address] Care Team Providers Care Electric Trucker Name Role Phone Unavailable Primary Care Provider Unavailabl e Encounter Details Date Type Department Care Team (Late Contact Info) Description 11/27/2015 Legacy AEHR Vitals Encounter [facility] 800 [place] [address] ProviderCaden MD [address] [place] [address] Social History Tobacco Use Types Packs/Day [...] - - Weight 129 kg (284 lb) 11/27/2015 4:19 PM EDT Height 160 cm (5' 3 ) 11/27/2015 4:19 PM EDT Body Mass Index 50.31 11/27/2015 4:19 PM EDT documented in this encounter Plan of Treatment Upcoming Encounters Date Type Department Care Team (Late Contact Info) Description 08/08/2024 1:00 PM EST Office Visit Professional [facility] Nephrology, Bone & Mineral Metabolism [address] [facility], [address] [place] [address] Diana Ahumada MD 800 [place] [address] 12/30/2024 10:15 AM EDT Office Visit [facility] Eye Care [address] [place] [address] Luis Olivares MD [address] [place] [address] documented as of this encounter Visit Diagnoses Not on filedocumented in this encounter
--- OUTSIDE RECORDS SUMMARY | 2024-08-02 15:17 | XMS_ITS | Encounter Summary ---
Author Organization Healthcare Address [address] [place] [address] Care Team Providers Care Television News Reporter Name Role Phone Unavailable Primary Care Provider Unavailabl e Encounter Details Date Type Department Care Team (Late Contact Info) Description 06/26/2015 Legacy AEHR Vitals Encounter [facility] 800 [place] [address] ProviderCaden MD [address] [place] [address] Social History Tobacco Use Types Packs/Day [...] - Inhaled Oxygen Concentration - - Weight 126 kg (276 lb 14.4 oz) 06/26/2015 3:03 P M EDT Height 160 cm (5' 3 ) 06/26/2015 3:03 PM EDT Body Mass Index 49.05 06/26/2015 3:03 PM EDT documented in this encounter Plan of Treatment Upcoming Encounters Date Type Department Care Team (Late Contact Info) Description 08/08/2024 1:00 PM EST Office Visit Professional [facility] Nephrology, Bone & Mineral Metabolism [address] [facility], [address] [place] [address] Diana Ahumada MD 800 [place] [address] 12/30/2024 10:15 AM EDT Office Visit [facility] Eye Care [address] [place] [address] Luis Olivares MD [address] [place] [address] documented as of this encounter Visit Diagnoses Not on filedocumented in this encounter
--- OUTSIDE RECORDS SUMMARY | 2024-08-02 15:17 | XMS_ITS | Encounter Summary ---
Author Organization Healthcare Address [address] [place], [place] [id number] Care Team Providers Care Fishing Tool Technician Oil Well Name Role Phone Unavailable Primary Care Provider Unavailabl e Encounter Details Date Type Department Care Team (Late Contact Info) Description 06/15/2013 [facility] AEHR Vitals Encounter [facility] 800 [place] [address] ProviderCaden MD [address] [place] [address] Social History Tobacco Use Types Packs/Day [...] Oxygen Concentration - - Weight 116 kg (256 lb 8.1 oz) 06/15/2013 7:48 AM EDT Height 156.8 cm (5' 1.75 ) 06/15/2013 7:48 AM ED T Body Mass Index 47.29 06/15/2013 7:48 AM EDT documented in this encounter Plan of Treatment Upcoming Encounters Date Type Department Care Team (Late Contact Info) Description 08/08/2024 1:00 PM EST Office Visit Professional [facility] Nephrology, Bone & Mineral Metabolism [address] [facility], [address] [place] [address] Diana Ahumada MD 800 [place] [address] 12/30/2024 10:15 AM EDT Office Visit [facility] [address] [place] [address] Luis Olivares MD [address] [place] [phone] documented as of this encounter Visit Diagnoses Not on filedocumented in this encounter
--- OUTSIDE RECORDS SUMMARY | 2024-08-02 15:17 | XMS_ITS | Encounter Summary ---
Author Organization Healthcare Address [address] [id number] Care Team Providers Care Factory Clerk Name Role Phone Unavailable Primary Care Provider Unavailabl e Encounter Details Date Type Department Care Team (Late Contact Info) Description 03/26/2016 Legacy Medicat Vital s Encounter [facility] [address], 1[address] [place] [address] Stacy Harrell, GEOSPATIAL INFORMATION SCIENTIST [address] [place] [address] Social History Tobacco Use Types Packs/Day Years [...] - Height 160 cm (5' 3 ) 03/26/2016 3:21 PM EDT Body Mass Index - - documented in this encounter Plan of Treatment Upcoming Encounters Date Type Department Care Team (Late st Contact Info) Description 08/08/2024 1:00 PM EST Office Visit Professional [facility] Nephrology, Bone & Mineral Metabolism [address] [facility], [address] [place] [address] Diana Ahumada MD 800 [place] [address] 12/30/2024 10:15 AM EDT Office Visit [facility] [address] [place] [address] Luis Olivares MD [address] [place] [phone] documented as of this encounter Visit Diagnoses Not on filedocumented in this encounter
--- OUTSIDE RECORDS SUMMARY | 2024-08-02 15:17 | XMS_ITS | Encounter Summary ---
Author Organization Healthcare Address [address] [place] [address] Care Team Providers Care Faith Doctor Name Role Phone Unavailable Primary Care Provider Unavailabl e Encounter Details Date Type Department Care Team (Late Contact Info) Description 08/15/2013 [facility] AEHR Vitals Encounter [facility] 800 [place] [address] ProviderCaden MD [address] [place] [address] Social History Tobacco Use Types Packs/Day [...] - Inhaled Oxygen Concentration - - Weight 109 kg (241 lb 6.1 oz) 08/15/2013 7:49 AM EST Height 156.8 cm (5' 1.75 ) 08/15/2013 7:49 AM ES T Body Mass Index 44.5 08/15/2013 7:49 AM EST documented in this encounter Plan of Treatment Upcoming Encounters Date Type Department Care Team (Late Contact Info) Description 08/08/2024 1:00 PM EST Office Visit Professional [facility] Nephrology, Bone & Mineral Metabolism [address] [facility], [address] [place] [address] Diana Ahumada MD 800 [place], [place] [id number] 12/30/2024 10:15 AM EDT Office Visit [facility] [address] [place] [address] Luis Olivares MD [address] [place] [phone] documented as of this encounter Visit Diagnoses Not on filedocumented in this encounter
--- OUTSIDE RECORDS SUMMARY | 2024-08-02 15:17 | XMS_ITS | Encounter Summary ---
Author Organization Healthcare Address [address] [place] [address] Care Team Providers Care Lathmaker Name Role Phone Unavailable Primary Care Provider Unavailabl e Encounter Details Date Type Department Care Team (Late Contact Info) Description 04/11/2015 [facility] AEHR Vitals Encounter [facility] 800 [place] [address] ProviderCaden MD [address] [place] [address] Social History Tobacco Use Types Packs/Day [...] Concentration - - Weight 127 kg (281 lb 1 oz) 04/11/2015 8:30 AM E DT Height 160 cm (5' 3 ) 04/11/2015 8:30 AM EDT Body Mass Index 49.79 04/11/2015 8:30 AM EDT documented in this encounter Plan of Treatment Upcoming Encounters Date Type Department Care Team (Late Contact Info) Description 08/08/2024 1:00 PM EST Office Visit Professional [facility] Nephrology, Bone & Mineral Metabolism [address] [facility], [address] [place] [address] Diana Ahumada MD 800 [place] [address] 12/30/2024 10:15 AM EDT Office Visit [facility] [address] [place] [address] Luis Olivares MD [address] [place] [address] documented as of this encounter Visit Diagnoses Not on filedocumented in this encounter
--- OUTSIDE RECORDS SUMMARY | 2024-08-02 15:17 | XMS_ITS | Encounter Summary ---
Author Organization Healthcare Address [address] [place] [address] Care Team Providers Care Quirk Sander Name Role Phone Unavailable Primary Care Provider Unavailabl e Encounter Details Date Type Department Care Team (Late Contact Info) Description 09/19/2015 Legacy AEHR Vitals Encounter [facility] 800 [place] [address] ProviderCaden MD [address] [place] [address] Social History Tobacco Use Types Packs/Day [...] - Inhaled Oxygen Concentration - - Weight 124 kg (272 lb 8.2 oz) 09/19/2015 3:43 PM EST Height 160 cm (5' 3 ) 09/19/2015 3:43 PM EST Body Mass Index 48.27 09/19/2015 3:43 PM EST documented in this encounter Plan of Treatment Upcoming Encounters Date Type Department Care Team (Late Contact Info) Description 08/08/2024 1:00 PM EST Office Visit Professional [facility] Nephrology, Bone & Mineral Metabolism [address] [facility], [address] [place] [address] Diana Ahumada MD 800 [place] [address] 12/30/2024 10:15 AM EDT Office Visit [facility] [address] [place] [address] Luis Olivares MD [address] [place] [address] documented as of this encounter Visit Diagnoses Not on filedocumented in this encounter
--- OUTSIDE RECORDS SUMMARY | 2024-08-02 15:17 | XMS_ITS | Encounter Summary ---
Author Organization Healthcare Address [address] [place] [address] Care Team Providers Care Hotel Baggage Handler Name Role Phone Unavailable Primary Care Provider Unavailabl e Encounter Details Date Type Department Care Team (Late Contact Info) Description 11/29/2013 Legacy AEHR Vitals Encounter [facility] 800 [place] [address] ProviderCaden MD [address] [place] [address] Social History Tobacco Use Types Packs/Day [...] - Inhaled Oxygen Concentration - - Weight 112 kg (246 lb 6.5 oz) 11/29/2013 7:50 AM EDT Height 156.8 cm (5' 1.75 ) 11/29/2013 7:50 AM ED T Body Mass Index 45.43 11/29/2013 7:50 AM EDT documented in this encounter Plan of Treatment Upcoming Encounters Date Type Department Care Team (Late Contact Info) Description 08/08/2024 1:00 PM EST Office Visit Professional [facility] Nephrology, Bone & Mineral Metabolism [address] [facility], [address] [place] [address] Diana Ahumada MD 800 [place], [place] [phone] 12/30/2024 10:15 AM EDT Office Visit [facility] [address] [place] [address] Luis Olivares MD [address] [place] [phone] documented as of this encounter Visit Diagnoses Not on filedocumented in this encounter
--- OUTSIDE RECORDS SUMMARY | 2024-08-02 15:17 | XMS_ITS | Encounter Summary ---
Author Organization Healthcare Address [address] [place] [address] Care Team Providers Care Route Process Administrator Name Role Phone Unavailable Primary Care Provider Unavailabl e Encounter Details Date Type Department Care Team (Late Contact Info) Description 10/05/2014 Legacy AEHR Vitals Encounter [facility] 800 [place] [address] ProviderCaden MD [address] [place] [address] Social History Tobacco Use Types Packs/Day [...] - Inhaled Oxygen Concentration - - Weight 79.8 kg (175 lb 15.9 oz) 10/05/2014 8:13 AM EST Height 171.5 cm (5' 7.5 ) 10/05/2014 8:13 AM EST Body Mass Index 27.16 10/05/2014 8:13 AM EST documented in this encounter Plan of Treatment Upcoming Encounters Date Type Department Care Team (Late Contact Info) Description 08/08/2024 1:00 PM EST Office Visit [facility] Nephrology, Bone & Mineral Metabolism [address] [facility], [address] [place] [address] Diana Ahumada MD 800 [place], [place] [phone] 12/30/2024 10:15 AM EDT Office Visit [facility] [address] [place] [address] Luis Olivares MD [address] [place] [phone] documented as of this encounter Visit Diagnoses Not on filedocumented in this encounter
--- OUTSIDE RECORDS SUMMARY | 2024-08-02 15:17 | XMS_ITS | Encounter Summary ---
Author Organization Healthcare Address [address] [place] [address] Care Team Providers Care Retail Sales Representative Name Role Phone Unavailable Primary Care Provider Unavailabl e Encounter Details Date Type Department Care Team (Late Contact Info) Description 09/01/2013 Legacy AEHR Vitals Encounter [facility] [address] [place] [address] ProviderCaden MD [address] [place] [address] Social History Tobacco Use Types Packs/Day [...] Oxygen Concentration - - Weight 109 kg (239 lb 15.9 oz) 09/01/2013 1:04 P M EST Height 156.8 cm (5' 1.75 ) 09/01/2013 1:04 PM ES T Body Mass Index 44.25 09/01/2013 1:04 PM EST documented in this encounter Plan of Treatment Upcoming Encounters Date Type Department Care Team (Late Contact Info) Description 08/08/2024 1:00 PM EST Office Visit Professional [facility] Nephrology, Bone & Mineral Metabolism [address] [facility], [address] [place] [address] Diana Ahumada MD 800 [place], [place] [phone] 12/30/2024 10:15 AM EDT Office Visit [facility] [address] [place] [address] Luis Olivarse MD [address] [place] [phone] documented as of this encounter Visit Diagnoses Not on filedocumented in this encounter
--- OUTSIDE RECORDS SUMMARY | 2024-08-02 15:17 | XMS_ITS | Encounter Summary ---
Author Organization Healthcare Address [address] [place] [address] Care Team Providers Care Automatic Clipper Name Role Phone Unavailable Primary Care Provider Unavailabl e Encounter Details Date Type Department Care Team (Late Contact Info) Description 09/17/2016 Legacy AEHR Vitals Encounter [facility] 800 [place] [address] ProviderCaden MD [address] [place] [address] Social History Tobacco Use Types Packs/Day [...] Weight 137 kg (302 lb 0.5 oz) 09/17/2016 3:16 PM EST Height 160 cm (5' 3 ) 09/17/2016 3:16 PM EST Body Mass Index 53.5 09/17/2016 3:16 PM EST documented in this encounter Plan of Treatment Upcoming Encounters Date Type Department Care Team (Late Contact Info) Description 08/08/2024 1:00 PM EST Office Visit Professional [facility] Nephrology, Bone & Mineral Metabolism [address] [facility], [address] [place] [address] Diana Ahumada MD 800 [place] [address] 12/30/2024 10:15 AM EDT Office Visit [facility] [address] [place] [address] Luis Olivares MD [address] [place] [address] documented as of this encounter Visit Diagnoses Not on filedocumented in this encounter
--- OUTSIDE RECORDS SUMMARY | 2024-08-02 15:17 | XMS_ITS | Encounter Summary ---
Author Organization [facility] Address [address] [place] [address] Care Team Providers Care Machine Boss Name Role Phone Unavailable Primary Care Provider Unavailabl e Encounter Details Date Type Department Care Team (Late Contact Info) Description 06/08/2015 Legacy AEHR Vitals Encounter [facility] 800 [place] [address] ProviderCaden MD [address] [place] [address] Social History Tobacco Use Types Packs/Day [...] - Inhaled Oxygen Concentration - - Weight 130 kg (286 lb 15.9 oz) 06/08/2015 4:23 P M EDT Height 160 cm (5' 3 ) 06/08/2015 4:23 PM EDT Body Mass Index 50.84 06/08/2015 4:23 PM EDT documented in this encounter Plan of Treatment Upcoming Encounters Date Type Department Care Team (Late Contact Info) Description 08/08/2024 1:00 PM EST Office Visit Professional [facility] Nephrology, Bone & Mineral Metabolism [address] [facility], [address] [place] [address] Diana Ahumada MD 800 [place] [address] 12/30/2024 10:15 AM EDT Office Visit [facility] [address] [place] [address] Luis Olivares MD [address] [place] [address] documented as of this encounter Visit Diagnoses Not on filedocumented in this encounter
--- OUTSIDE RECORDS SUMMARY | 2024-08-02 15:17 | XMS_ITS | Encounter Summary ---
Author Organization [facility] Address [address] [place] [address] Care Team Providers Care Pure Pak Machine Operator Name Role Phone Unavailable Primary Care Provider Unavailabl e Encounter Details Date Type Department Care Team (Late Contact Info) Description 01/28/2016 Legacy AEHR Vitals Encounter [facility] 800 [place] [address] ProviderCaden MD [address] [place] [address] Social History Tobacco Use Types Packs/Day [...] Weight 131 kg (288 lb 0.1 oz) 01/28/2016 2:56 PM EDT Height 160 cm (5' 3 ) 01/28/2016 2:56 PM EDT Body Mass Index 51.02 01/28/2016 2:56 PM EDT documented in this encounter Plan of Treatment Upcoming Encounters Date Type Department Care Team (Late Contact Info) Description 08/08/2024 1:00 PM EST Office Visit Professional [facility] Nephrology, Bone & Mineral Metabolism [address] [facility], [address] [place] [address] Diana Ahumada MD 800 [place] [address] 12/30/2024 10:15 AM EDT Office Visit [facility] [address] [place] [address] Luis Olivares MD [address] [place] [phone] documented as of this encounter Visit Diagnoses Not on filedocumented in this encounter
--- OUTSIDE RECORDS SUMMARY | 2024-08-02 15:17 | XMS_ITS | Encounter Summary ---
Author Organization [facility] Address [address] [place] [address] Care Team Providers Care Dietary Server Name Role Phone Unavailable Primary Care Provider Unavailabl e Encounter Details Date Type Department Care Team (Late Contact Info) Description 02/28/2016 Legacy AEHR Vitals Encounter [facility] 800 [place] [address] ProviderCaden MD [address] [place] [address] Social History Tobacco Use Types Packs/Day [...] - - Weight 134 kg (296 lb 0.2 oz) 02/28/2016 4:05 PM EDT Height 160 cm (5' 3 ) 02/28/2016 4:05 PM EDT Body Mass Index 52.44 02/28/2016 4:05 PM EDT documented in this encounter Plan of Treatment Upcoming Encounters Date Type Department Care Team (Late Contact Info) Description 08/08/2024 1:00 PM EST Office Visit Professional [facility] Nephrology, Bone & Mineral Metabolism [address] [facility], [address] [place] [address] Diana Ahumada MD 800 [place] [address] 12/30/2024 10:15 AM EDT Office Visit [facility] Eye [facility] [address] [place] [address] Luis Olivares MD [address] [place] [phone] documented as of this encounter Visit Diagnoses Not on filedocumented in this encounter
--- OUTSIDE RECORDS SUMMARY | 2024-08-02 15:17 | XMS_ITS | Encounter Summary ---
Author Organization [facility] Address [address] [place] [address] Care Team Providers Care Satellite Tv Technician Name Role Phone Unavailable Primary Care Provider Unavailabl e Encounter Details Date Type Department Care Team (Late Contact Info) Description 09/10/2015 Legacy AEHR Vitals Encounter [facility] 800 [place] [address] ProviderCaden MD [address] [place] [address] Social History Tobacco Use Types Packs/Day [...] - - Weight 121 kg (266 lb 2.2 oz) 09/10/2015 12:58 P M EST Height 160 cm (5' 3 ) 09/10/2015 12:58 PM EST Body Mass Index 47.14 09/10/2015 12:58 PM EST documented in this encounter Plan of Treatment Upcoming Encounters Date Type Department Care Team (Late Contact Info) Description 08/08/2024 1:00 PM EST Office Visit Professional [facility] Nephrology, Bone & Mineral Metabolism [address] [facility], [address] [place] [address] Diana Ahumada MD [address] [place] [address] 12/30/2024 10:15 AM EDT Office Visit [facility] Eye Care [address] [place] [address] Luis Olivares MD [address] [place] [address] documented as of this encounter Visit Diagnoses Not on filedocumented in this encounter
[2024-08-02 15:59] LABS: Basophils # 0.1 K/mm3 (0-0.2); Basophils % 0.8 % (0.1-2.0); Eosinophils # 0.2 K/mm3 (0.0-0.4); Eosinophils % 1.9 % (0.1-12.0); Hematocrit 41.4 % (37.0-47.0); Hemoglobin 14.1 g/dL (12.2-16.2); Lymphocytes # 1.9 K/mm3 (0.7-4.5); Lymphocytes % 21.2 % (10-50); Mean Corpuscular HGB Conc 34.1 g/dL (31.8-35.4); Mean Corpuscular Hemoglobin 31.4 pg (27.0-31.2); Mean Platelet Volume 7.6 fl (7.4-10.4); Monocytes # 0.5 K/mm3 (0.1-1.0); Monocytes % 5.1 % (1.7-9.3); Neutrophils # 6.5 K/mm3 (1.8-7.8); Platelet Count 246 K/mm3 (142-424); Red Blood Count 4.49 M/mm3 (4.20-5.40); Red Cell Distribution Width 13.8 % (11.5-17.5); White Blood Count 9.1 K/mm3 (4.8-10.8)
[2024-08-02 16:04] LABS: Creatinine,Urine Random 115 mg/dL (Not Estab.)
[2024-08-02 16:39] LABS: Anion Gap 14.2 mEq/L (5-15); Blood Urea Nitrogen 36 mg/dl (7-17); Calcium 9.8 mg/dl (8.4-10.2); Carbon Dioxide 25 mmol/L (22.0-30.0); Chloride 103 mmol/L (98-107); Estimated Glomerular Filt Rate 37 ml/min (>60); GFR (African American) 44 ML/MIN (>60); Glucose 161 mg/dl (74-100); Phosphorous 3.7 mg/dl (2.5-4.5); Potassium 4.2 mmoL/L (3.5-5.1); Sodium 138 mmol/L (136-145)
[2024-08-02 16:52] LABS: Intact Parathyroid Hormone 94.3 pg/mL (7.5-53.5)
[2024-08-02 16:57] LABS: 25-OH Vitamin D, Total 45.3 ng/mL (30-100)
== END 2024-08-02 23:59 | disposition home or self-care (01) ==
LOC: LAB 15:05
PROVIDERS: PCP Internal Medicine Adolescent Medicine; Visit Provider Internal Medicine
DX: N18.30 Chronic kidney disease, stage 3 unspecified (principal)
CPT/HCPCS: 36415; 80069; 82043; 82306; 82570; 83970; 84156; 85025

== ENCOUNTER 2024-09-19 11:45 | Outpatient (CLI) | payer MEDICARE, OTHER, SELFPAY ==
[2024-09-19 12:23] LABS: Basophils # 0.1 K/mm3 (0-0.2); Basophils % 0.5 % (0.1-2.0); Eosinophils # 0.2 K/mm3 (0.0-0.4); Eosinophils % 1.5 % (0.1-12.0); Hematocrit 42.2 % (37.0-47.0); Hemoglobin 13.8 g/dL (12.2-16.2); Lymphocytes # 1.5 K/mm3 (0.7-4.5); Lymphocytes % 15.4 % (10-50); Mean Corpuscular HGB Conc 32.7 g/dL (31.8-35.4); Mean Corpuscular Hemoglobin 29.9 pg (27.0-31.2); Mean Corpuscular Volume 91.3 fl (81-99); Mean Platelet Volume 9.8 fl (7.4-10.4); Monocytes # 0.5 K/mm3 (0.1-1.0); Monocytes % 5.5 % (1.7-9.3); Neutrophils # 7.6 K/mm3 (1.8-7.8); Neutrophils % 76.7 % (37.0-80.0); Platelet Count 247 K/mm3 (142-424); Red Blood Count 4.62 M/mm3 (4.20-5.40); White Blood Count 9.9 K/mm3 (4.8-10.8)
[2024-09-19 12:46] LABS: Albumin Level 3.9 g/dl (3.5-5.0); Chloride 101 mmol/L (98-107)
[2024-09-19 12:47] LABS: Potassium 4.4 mmoL/L (3.5-5.1); Sodium 134 mmol/L (136-145)
[2024-09-19 12:49] LABS: Alanine Aminotransferase 21 U/L (12-78); Alkaline Phosphatase 87 U/L (38-126); Anion Gap 15.4 mEq/L (5-15); Aspartate Amino Transferase 27 U/L (14-36); Bilirubin,Direct 0.3 mg/dl (0.0-0.4); Bilirubin,Total 0.3 mg/dl (0.2-1.3); Blood Urea Nitrogen 36 mg/dl (7-17); Carbon Dioxide 22 mmol/L (22.0-30.0); Cholesterol 254 mg/dl (140-200); Estimated Glomerular Filt Rate 40 ml/min (>60); GFR (African American) 48 ML/MIN (>60); Total Protein,Serum 6.7 g/dl (6.3-8.2); Triglycerides 317 mg/dl (30-150); VLDL Cholesterol 63 mg/dL (0-40)
[2024-09-19 12:50] LABS: Calcium 10.1 mg/dl (8.4-10.2); Chol/HDL Ratio 8.5 (1-3.5); Glucose 205 mg/dl (74-100); HDL Cholesterol 30 mg/dl (40-60); Magnesium 1.8 mg/dl (1.6-2.3)
[2024-09-19 13:01] LABS: Direct LDL Cholesterol 166.77 mg/dL (100-129)
[2024-09-19 13:20] LABS: Thyroid Stimulating Hormone 1.89 uIU/mL (0.465-4.68)
[2024-09-19 13:42] LABS: Free T4 (Free Thyroxine) 1.19 ng/dl (0.78-2.19)
== END 2024-09-19 23:59 | disposition home or self-care (01) ==
LOC: LAB 11:46
PROVIDERS: PCP Internal Medicine Adolescent Medicine; Visit Provider Internal Medicine
DX: I25.118 Atherosclerotic heart disease of native coronary artery with other forms of angina pectoris (principal); E78.2 Mixed hyperlipidemia; I10 Essential (primary) hypertension; I51.89 Other ill-defined heart diseases; R00.0 Tachycardia, unspecified; R00.2 Palpitations; E83.42 Hypomagnesemia
CPT/HCPCS: 36415; 80048; 80061; 80076; 83735; 84439; 84443; 85025

== ENCOUNTER 2024-10-05 12:43 | Outpatient (CLI) | payer MEDICARE, OTHER, SELFPAY ==
--- NOTE | 2024-10-05 | CA_ITS ---
APPROVED REPORT Exam: Pharmacologic Technologist: Sammie Root Ht: 5 ft 1 in Wt: 234 lbs BSA: 2.02 m2 HR: 60 bpm BP: 147/76 mmHg Rhythm: Nsr 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: HTN, Hyperlipidemia Medications: Vit C, Atorvastatin, Carvedilol, Vit D3, Clopidogrel, Farxiga, Diltiazem HCl ER, Levothyroxine, Losartan, Magnesium Aspart, Citrate Oxide, Pantoprazole, Venlafaxine, Zinc, Aspirin, Triamterene-Hydrochlorothiazide Allergies: Ciprofloxacin, Codeine, Gadolinium, Trimethoprim, Iodinated Contrast, Penicillin, Sulfa, Sulfamethoxazole Cardiac Risk Factors: HTN, Hyperlipidemia Stress Test Details Test: Lexiscan HR Resting HR: 60 bpm Max Heart Rate (APMHR): 145.168461 bpm Target HR (85% APMHR): 123.409030 bpm Recovery HR: 67 bpm BP Resting BP: 147.0/76.0 mmHg Max BP: 149.0/73.0 mmHg Recovery BP: 147.0/69.0 mmHg ECG Resting ECG: Nsr Stress ECG Conclusion No cp Rare pvc <1.5mm ST segment changes Non-diagnostic Lexiscan stress test Electronically signed by : Adeola Marie MD 10/07/2024 00:15:27
[2024-10-05] MEDS: REGADENOSON 0.4MG/5ML SYRINGE 0.4 MG IV (02:00)
--- NOTE | 2024-10-05 12:44 | NM_ITS ---
APPROVED REPORT Exam: Nuclear Stress Test Indication: cad, htn, diabetes, hyperlipidemia, fm hx, angina, sob Patient Location: Outpatient Stress Tech: Sammie Root [place] Tech:Cyn Chou JENNA RT (R)(N)(M) Ht: 5 ft 3 in Wt: 233 lbs Bra Size: dd HR: 60 bpm BP: 147/76 mmHg BSA: 2.06 m2 TID: 1.23 BMI: 41.2 History: cad, htn, diabetes, hyperlipidemia, fm hx, angina, sob pt could not lay on stomach for prone images Procedure: Patient received 0.4 mg of intravenous Lexiscan, resting heart rate 60 bpm, resting blood pressure 147/76 mmHg, with Lexiscan maximum heart rate achieved was 69 bpm which is % of the maximum predicted heart rate and blood pressure was 139/69 mmHg. With Lexiscan, patient denied any complaint of chest pain. Cardiac Stress and Resting SPECT Images: Cardiac Stress and Resting SPECT images were obtained using technetium 99m Myoview 31.3 mCi stress and 10.79 mCi at rest. The patient could not lie on her abdomen. Therefore, prone stress imaging could not be performed. There is also significant radiotracer uptake in the GI tract in close proximity to the inferior LV wall. This may affect the diagnostic interpretation of the study findings. Resting and stress imaging in supine positions demonstrate a medium sized, moderate, reversible perfusion defect in the inferior LV wall. There is also increase in transient ischemic dilation ratio (TID 1.23), suggestive of possible multivessel disease or balanced ischemia. Gated imaging demonstrates normal global and regional LV systolic function. LVEF is calculated at 58%. Conclusion: Technically difficult study (findings may be inconclusive) due to significant radiotracer uptake in close proximity to the cardiac borders. Medium sized, moderate, reversible perfusion defect in the inferior LV wall. There is also increase in transient ischemic dilation ratio (TID 1.23), suggestive of possible multivessel disease or balanced ischemia. Gated imaging demonstrates normal global and regional LV systolic function. LVEF is calculated at 58%. In the setting of inconclusive findings, clinical correlation is required. Further evaluation with alternative modalities, if clinically feasible and indicated, is suggested. Electronically signed by : Adeola Marie MD 10/06/2024 11:21:06
[2024-10-05] MEDS: SODIUM CHLORIDE 0.9% 10ML SYR (RAD ONLY) 10 ML IV ×2 (12:50→14:00)
[2024-10-05] MEDS: ISOTOPE MYOVIEW (PER STUDY) 1 DOSE IV (14:08)
== END 2024-10-05 23:59 | disposition home or self-care (01) ==
LOC: RAD 12:44
PROVIDERS: PCP Internal Medicine Adolescent Medicine; Visit Provider Internal Medicine
DX: I25.118 Atherosclerotic heart disease of native coronary artery with other forms of angina pectoris (principal); R00.0 Tachycardia, unspecified; R00.2 Palpitations; E83.42 Hypomagnesemia; E78.2 Mixed hyperlipidemia; I10 Essential (primary) hypertension
CPT/HCPCS: 78452; 93017; 93018; A9502; J2785

== ENCOUNTER 2024-11-03 13:24 | Outpatient (CLI) | payer MEDICARE, OTHER, SELFPAY ==
--- NOTE | 2024-11-03 13:25 | MR_ITS ---
FINAL REPORT TECHNIQUE: Multiplanar MR without gadolinium enhancement CLINICAL HISTORY: right shoulder pain X MANY YEARS FROM A FALL LROM COMPARISON: None FINDINGS: Marrow signal: Unremarkable Glenohumeral joint: There is end-stage osteoarthritic change with bulky osteophytes and complete loss of articular cartilage. A moderate-sized joint effusion is present. There is a large loose body in the subcoracoid recess measuring up to 17 mm in size. Acromioclavicular joint: Mild hypertrophic changes of the acromioclavicular joint with mild impingement. Rotator cuff apparatus: Focal full-thickness tears of the distal supraspinatus tendon and the subscapularis tendon. Labrum: Diminutive appearance of the labrum, with diffuse degeneration and multiple chronic tears. Biceps tendon: Severe bicipital tendinosis is present. IMPRESSION: Severe osteoarthritic changes present with a large joint body. Severe labral degeneration as described. Moderate rotator cuff degenerative change with focal full-thickness tears of the distal supraspinatus and subscapularis tendons. Reviewed, Interpreted and Dictated by Cristiano Buck MD Transcribed by Ifeoma Doyle Authenticated and [facility]
== END 2024-11-03 23:59 | disposition home or self-care (01) ==
LOC: RAD 13:25
PROVIDERS: PCP Internal Medicine Adolescent Medicine; Visit Provider Internal Medicine
DX: M25.511 Pain in right shoulder (principal)
CPT/HCPCS: 73221

== ENCOUNTER 2024-11-29 12:59 | Outpatient (CLI) | payer MEDICARE, OTHER, SELFPAY ==
--- NOTE | 2024-11-29 13:02 | CA_ITS ---
FINAL REPORT TECHNIQUE: Murdock scale, color and spectral doppler images of the bilateral carotid arteries were obtained. CLINICAL HISTORY: Headache COMPARISON: None FINDINGS: Peak systolic velocity in the right internal carotid artery is 75 cm/sec. The internal carotid to common carotid artery ratio is 1.3. There is no significant carotid artery stenosis and no significant plaque formation. The right vertebral artery is normal in direction. Peak systolic velocity in the left internal carotid artery is 71 cm/sec. The internal carotid to common carotid artery ratio is 1.15. There is no significant carotid artery stenosis and no significant plaque formation. The left vertebral artery is normal in direction. IMPRESSION: No ultrasound evidence of hemodynamically significant carotid artery stenosis. Normal peak systolic velocities and normal internal to common carotid artery ratios bilaterally. Reviewed, Interpreted and Dictated by Lilia Murphy MD Transcribed by Ifeoma Doyle Authenticated and [facility]
--- NOTE | 2024-11-29 13:29 | MR_ITS ---
FINAL REPORT TECHNIQUE: Multiplanar and multisequence imaging of the brain was obtained without contrast. CLINICAL HISTORY: NONINTRACABLE EPISODIC HEADACHE HEADACHES WILL WAKE HER UP WHEN SLEEPING AT NIGHT DIZZINESS WHEN LEANING BACKWARDS X 6-8 MONTHS AND RINGING IN LEFT EAR COMPARISON: None FINDINGS: There is mild global atrophy. There is no mass effect or midline shift. Foci of periventricular and subcortical white matter are nonspecific. No hydrocephalus. The cerebellum and brainstem have an unremarkable appearance. There are no areas of restricted diffusion on diffusion weighted images to suggest acute infarct. Soft tissues are without acute abnormality. IMPRESSION: No acute intracranial abnormality. Nonspecific T2 abnormality within the periventricular and subcortical white matter. Differential considerations include changes of chronic small vessel ischemia in this age group. Reviewed, Interpreted and Dictated by Lilia Murphy MD Transcribed by Ifeoma Doyle Authenticated and [facility]
== END 2024-11-29 23:59 | disposition home or self-care (01) ==
LOC: RT 13:00
PROVIDERS: PCP Internal Medicine Adolescent Medicine; Visit Provider Internal Medicine Adolescent Medicine
DX: R42 Dizziness and giddiness (principal); R51.9 Headache, unspecified
CPT/HCPCS: 70551; 93880

== ENCOUNTER 2025-02-02 15:44 | Outpatient (CLI) | payer MEDICARE, OTHER, SELFPAY ==
[2025-02-02 15:54] LABS: Microscopic, Urine URINE MICROSCOPIC (MICROSCOPIC)
[2025-02-02 16:27] LABS: Hematocrit 44.4 % (37.0-47.0); Hemoglobin 14.2 g/dL (12.2-16.2); Mean Corpuscular Hemoglobin 29.6 pg (27.0-31.2); Mean Corpuscular Volume 92.7 fl (81-99); Nucleated Red Blood Cells # 0 10^3/uL; Nucleated Red Blood Cells % 0 %; Platelet Count 242 K/mm3 (142-424); Red Blood Count 4.79 M/mm3 (4.20-5.40); Red Cell Distribution Width-SD 44.4 fL; White Blood Count 9.6 K/mm3 (4.8-10.8)
[2025-02-02 17:51] LABS: Albumin Level 4.1 g/dl (3.5-5.0); Anion Gap 12.3 mEq/L (5-15); Blood Urea Nitrogen 28 mg/dl (7-17); Calcium 9.9 mg/dl (8.4-10.2); Carbon Dioxide 27 mmol/L (22.0-30.0); Chloride 102 mmol/L (98-107); Estimated Glomerular Filt Rate 48 ml/min (>60); GFR (African American) 58 ML/MIN (>60); Glucose 143 mg/dl (74-100); Phosphorous 3.7 mg/dl (2.5-4.5); Potassium 4.3 mmoL/L (3.5-5.1); Sodium 137 mmol/L (136-145)
[2025-02-02 18:02] LABS: Intact Parathyroid Hormone 5.7 pg/mL (7.5-53.5)
[2025-02-02 18:51] LABS: Appearance,Urine SL CLOUDY (Clear); Bilirubin,Urine Negative (Negative); Blood, Urine Negative (Negative); Color,Urine YELLOW (Yellow); Glucose,Urine (UA) 3+ (Negative); Ketones,Urine Negative (Negative); Leukocyte Esterase,Urine 1+ (Negative); Nitrate,Urine Negative (Negative); Protein,Urine Negative (Negative); Specific Gravity, Urine 1.015 (1.005-1.030); Urobilinogen,Urine 0.2 EU/dl (0.2)
[2025-02-02 19:07] LABS: Creatinine,Urine Random 76 mg/dL (Not Estab.)
[2025-02-02 19:15] LABS: Microalbumin/Creatinine Ratio 8.5
[2025-02-02 21:37] LABS: Bacteria,Urine 4+ /lpf; WBC,Urine 20-50 #/hpf (0-3)
[2025-02-07 03:46] LABS: 1,25 Dihydroxy Vitamin D 26 pg/mL (.); 1,25-Dihydroxy, Vitamin D-2 <10 pg/mL (.); 1,25-Dihydroxy, Vitamin D-3 24 pg/mL (.)
== END 2025-02-02 23:59 | disposition home or self-care (01) ==
LOC: LAB 15:46
PROVIDERS: PCP Internal Medicine Adolescent Medicine; Visit Provider Internal Medicine
DX: N18.30 Chronic kidney disease, stage 3 unspecified (principal)
CPT/HCPCS: 36415; 80069; 81001; 82043; 82570; 82652; 83970; 84156; 85027; 87086; 87088; 87186

== ENCOUNTER 2025-03-19 05:54 | Emergency (ER) | payer MEDICARE, OTHER, SELFPAY ==
--- OUTSIDE RECORDS SUMMARY | 2024-12-10 17:30 | XMS_ITS ---
Author Organization [facility] Address [address] [facility] [address] [place] [address] Care Team Providers Care Scout Leaser Name Role Phone Heladio Palm Primary Care Provider [phone] Migration, Provider Unavailable Unavailable Allergies Allergen (clinical drug ingredient) Drug/Non Drug Allergy documented on EMR Reaction Allergy Type Onset Date Status DECONGESTANTS (uncoded) Unknown Allergy Active IV CONTRAST (uncoded) Unknown Allergy Active SULFA DRUGS (uncoded) Unknown Allergy Active ciprofloxacin Cipro tingling lips an d tongue Drug Allergy Active codeine Codeine Unknown Drug Allergy Active Penicillin anaphylaxis Drug Allergy Acti ve REASON FOR VISIT [facility] To [facility] Conversion Encounter Medications Medication SIG (Take, Route, Frequency, Duration) Notes Start Date End Date Status Venlafaxine HCl 100 MG 1 tab(s) orally once a day; Duration: 30 days Active Carvedilol 25 MG 1 tab(s) orally 2 times a day; Duration: 90 days Active Clopidogrel Bisulfate 75 MG 1 tab(s) orally once a day; Duration: 90 days 10/04/2024 Active Levothyroxine Sodium 100 MCG 1 tab(s) orally once a day; Duration: 90 days Active Losartan Potassium 50 MG 1 tab(s) orally once a day; Duration: 90 days Active Atorvastatin Calcium 40 MG 1 tab(s) orally once a day; Duration: 90 days Active Pantoprazole Sodium 40 MG 1 tab(s) orally once a day; Duration: 90 days Active Farxiga 10 MG 1 tab(s) orally once a day; Duration: 90 days Active metFORMIN HCl ER 750 MG 1 tab(s) orally once a day; Duration: 90 days 07/19/2024 Active Triamterene-HCTZ 37.5-25 MG 1 cap(s) orally once a day; Duration: 90 day(s) Active PEN NEEDLE 6MM 31G - ONCE A DAY; Duration: 30 DAY(S) *Please review for potential replacement for e-prescription and drug interaction check* 02/13/2020 Active CONSERVING DEVICE DIRECTED DIRECTED *Please review for potential replacement for e-prescription and drug interaction check* 03/22/2020 Active Acetaminophen 500 MG 2 tab(s) orally every 6 hours prn Active Magnesium Oxide 400 MG 2tabs orally once a day; Duration: 30 days Active Vitamin D3 50 MCG (2000 UT) as directed orally once a day; Duration: 30 day(s) Active Biotin 1000 MCG 1 tab(s) orally once a day Active Zinc 50 MG 1 tab(s) orally once a day; Duration: 30 day(s) Active amLODIPine Besylate 2.5 MG 1 tab(s) orally once a day Active Vitamin C 500 MG 1 tab(s) orally once a day; Duration: 30 day(s) Active Encounters Encounter Location Date Provider Diagnosis [facility] [address] [facility] [address] [place] [address] 12/10/2024 Provider Migration Plan Of Treatment Medication Medication Name Sig Start Date Stop Date Notes Venlafaxine HCl 100 MG 1 tab(s) orally o nce a day; Duration: 30 days Next Appt Details Provider Name:Heladio Palm, 05/25/2025 09:30:00 AM, [address] [place] [address], [phone], Progress Notes * Karo VELAZQUEZOB:[birth year] (75 yo F)Acc No.[id number]:12/10/2024 Patient: Juwan Mirtha RUST Provider: Yakov centeno Migration :1950 A ge:74 Y S ex:Female Date:12/10/2024 Address:[address] [place], [place] [phone] Pcp:Heladio Palm Subjective: * Chief Complaints: * 1 . [facility] To [facility] Conversion Encounter. * 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: * Medications: T aking amLODIPine Besylate 2.5 MG Tablet 1 tab(s) orally once a day , Taking Biotin 1000 MCG Tablet 1 tab(s) orally once a day , Taking Zinc 50 MG Tablet 1 tab(s) orally once a day , Taking Vitamin C 500 MG Tablet 1 tab(s) orally once a day , Taking Vitamin D3 50 MCG (2000 UT) Tablet as directed orally once a day , Taking Acetaminophen 500 MG Tablet 2 tab(s) orally every 6 hours prn , Taking Magnesium Oxide 400 MG Tablet 2tabs orally once a day , Taking PEN NEEDLE 6MM 31G - ONCE A DAY , Notes to Pharmacist: *Please review for potential replacement for e- prescription and drug interaction check*, Taking CONSERVING DEVICE DIRECTED DIRECTED , Notes to Pharmacist: *Please review for potential replacement for e-prescription and drug interaction check*, Taking metFORMIN HCl ER 750 MG Tablet Extended Release 24 Hour 1 tab(s) orally once a day , Taking Triamterene-HCTZ 37.5-25 MG Capsule 1 cap(s) orally once a day , Taking Pantoprazole Sodium 40 MG Tablet Delayed Release 1 tab(s) orally once a day , Taking Farxiga 10 MG Tablet 1 tab(s) orally once a day , Taking Atorvastatin Calcium 40 MG Tablet 1 tab(s) orally once a day , Taking Levothyroxine Sodium 100 MCG Tablet 1 tab(s) orally once a day , Taking Losartan Potassium 50 MG Tablet 1 tab(s) orally once a day , Taking Carvedilol 25 MG Tablet 1 tab(s) orally 2 times a day , Taking Clopidogrel Bisulfate 75 MG Tablet 1 tab(s) orally once a day * Allergies: P enicillin: anaphylaxis - Allergy, IV CONTRAST: Allergy, SULFA DRUGS: Allergy, Codeine: Allergy, Cipro: tingling lips and tongue - Allergy, DECONGESTANTS: Allergy. Objective: * Vitals: Assessment: Plan: * Treatment: * * Electronic signature of Yari mccann Migration on 03/19/2025 at 06:02 AM EDT Sign off status: Pending * Provider: Yakov centeno Migration Date: 12/10/2024 Generated for Maggy shine/Tila/Loni on: 03/19/2025 06:02 AM EDT
--- OUTSIDE RECORDS SUMMARY | 2025-01-17 10:00 | XMS_ITS ---
Author Organization [facility] Address [address] [place] [address] Care Team Providers Care Insurance Follow Up Representative Name Role Phone Heladio Palm Primary Care Provider REASON FOR VISIT AW Encounters Encounter Location Date Provider Diagnosis [facility] [address] [address] 01/17/2025 Heladio Palm Plan Of Treatment Next Appt Details Provider Name:Heladio Palm, 05/25/2025 09:30:00 AM, [address] [place] [address], [phone], Progress Notes * Karo VELAZQUEZOB:[birth year] (75 yo F)Acc No.[id number]:01/17/2025 Progress Notes Patient: Juwan MADDOXMirtha BOO Provider: Haritha Palm MD :1950 A ge:74 Y S ex:Female Date:01/17/2025 Address:[address] [place] [phone] Subjective: * Chief Complaints: * 1 . AW. * 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: Objective: * Vitals: Assessment: Plan: * Treatment: * * Electronic signature of Jeffy Palm MD FAAP on 03/19/2025 at 06:01 AM EDT Sign off status: Pending * Provider: Haritha Palm MD Date: 0 01/17/2025 Generated for Maggy shine/Tila/Miltonitting on: 0 03/19/2025 06:01 AM THELMAT
--- OUTSIDE RECORDS SUMMARY | 2025-03-02 05:15 | XMS_ITS ---
Author Organization [facility] Address [address] [facility] [address] [place] [address] Care Team Providers Care Venetian Blind Mechanic Name Role Phone Heladio Palm Primary Care [...] Active Penicillin anaphylaxis Drug Allergy Acti ve Results Component Value Reference Range Notes THYROID PANEL WITH TSH (1844 ) Reviewed date:03/14/2025 04:29:00 PM Interpretation: Performing Lab:LV [facility]-BRAND-YOURSELFe[address], Monitor [id number] Brady Brown Notes/Report: NON-FASTING; NON-FASTING; NON-FASTING; NON-FASTING; NON-FAST FASTING:YES FASTING: YES T3 UPTAKE 31 22-35 % T4 (THYROXINE), TOTAL 7.8 5.1-11.9 mcg/dL FREE T4 INDEX (T7) 2.4 1.4-3.8 TSH 1.65 0.40-4.50 mIU/L LIPID PANEL, STANDARD (7600) Reviewed date:03/14/2025 04:29:00 PM Interpretation: Performing Lab:LV [facility]-BRAND-YOURSELFe[address], Monitor [id number] Brady Brown Notes/Report: NON-FASTING; NON-FASTING; NON-FASTING; NON-FASTING; NON-FAST FASTING:YES FASTING: YES CHOLESTEROL, TOTAL 161 <200 mg/dL HDL CHOLESTEROL 38 > OR = 50 mg/dL TRIGLYCERIDES 185 <150 mg/dL LDL-CHOLESTEROL 95 Reference range: <100 Desirable range <100 mg/dL for primary prevention; <70 mg/dL for patients with CHD or diabetic patients with > or = 2 CHD risk factors. LDL-C is now calculated using the Aryan-Newton calculation, which is a validated novel method providing better accuracy than the Friedewald equation in the estimation of LDL-C. Aryan SS et al. CHRISTINA. 2013;310(58): 9019-2002 (http://education.Lean Train.Endorse/faq/WYR221) CHOL/HDLC RATIO 4.2 <5.0 (calc) NON HDL CHOLESTEROL 123 <130 mg/dL (calc) For patients with diabetes plus 1 major ASCVD risk factor, treating to a non-HDL-C goal of <100 mg/dL (LDL-C of <70 mg/dL) is considered a therapeutic option. COMPREHENSIVE METABOLIC PANE Soraida (92184) Reviewed date:03/14/2025 04:29:00 PM Interpretation: Performing Lab:CB, [facility] [facility] ServicesJoaquín Parsons[address] Brady Brown Notes/Report: NON-FASTING; NON-FASTING; NON-FASTING; NON-FASTING; NON-FAST FASTING:YES FASTING: YES GLUCOSE 187 65-99 mg/dL Fasting reference interval For someone without known diabetes, a glucose value >125 mg/dL indicates that they may have diabetes and this should be confirmed with a follow-up test. UREA NITROGEN (BUN) 34 7-25 mg/dL CREATININE 1.21 0.60-1.00 mg/dL EGFR 46 > OR = 60 mL/min/1.73m2 BUN/CREATININE RATIO 28 6-22 (calc) SODIUM 141 135-146 mmol/L POTASSIUM 4.0 3.5-5.3 mmol/L CHLORIDE 102 98-110 mmol/L CARBON DIOXIDE 29 20-32 mmol/L CALCIUM 9.5 8.6-10.4 mg/dL PROTEIN, TOTAL 6.8 6.1-8.1 g/dL ALBUMIN 3.9 3.6-5.1 g/dL GLOBULIN 2.9 1.9-3.7 g/dL (calc) ALBUMIN/GLOBULIN RATIO 1.3 1.0-2.5 (calc) BILIRUBIN, TOTAL 0.3 0.2-1.2 mg/dL ALKALINE PHOSPHATASE 83 37-153 U/L AST 11 10-35 U/L ALT 11 6-29 U/L CBC (INCLUDES DIFF/PLT) (639 9) Reviewed date:03/14/2025 04:29:01 PM Interpretation: Performing Lab:LV, [facility] [id number], Monitor [id number] Brady Brown Notes/Report: NON-FASTING; NON-FASTING; NON-FASTING; NON-FASTING; NON-FAST FASTING:YES FASTING: YES WHITE BLOOD CELL COUNT 10.0 3.8-10.8 Thousand/ uL RED BLOOD CELL COUNT 4.65 3.80-5.10 Million/uL HEMOGLOBIN 14.2 11.7-15.5 g/dL HEMATOCRIT 44.6 35.0-45.0 % MCV 95.9 80.0-100.0 fL MCH 30.5 27.0-33.0 pg MCHC 31.8 32.0-36.0 g/dL For adults, a slight decrease in the calculated MCHC value (in the range of 30 to 32 g/dL) is most likely not clinically significant; however, it should be interpreted with caution in correlation with other red cell parameters and the patient's clinical condition. RDW 13.3 11.0-15.0 % PLATELET COUNT 245 140-400 Thousand/uL MPV 9.5 7.5-12.5 fL ABSOLUTE NEUTROPHILS 6720 0475-9678 cells/uL ABSOLUTE LYMPHOCYTES 2100 850-3900 cells/uL ABSOLUTE MONOCYTES 660 200-950 cells/uL ABSOLUTE EOSINOPHILS 460 15-500 cells/uL ABSOLUTE BASOPHILS 60 0-200 cells/uL NEUTROPHILS 67.2 LYMPHOCYTES 21.0 MONOCYTES 6.6 EOSINOPHILS 4.6 BASOPHILS 0.6 HEMOGLOBIN A1c (496) Reviewed date:03/14/2025 04:29:01 PM Interpretation: Performing Lab:LV, [facility] [address], BRAND-[id number] Brady Brown Notes/Report: NON-FASTING; NON-FASTING; NON-FASTING; NON-FASTING; NON-FAST FASTING:YES FASTING: YES HEMOGLOBIN A1c 7.9 <5.7 % For someone without known diabetes, a hemoglobin [...] A1c for diagnosis of diabetes for children. VITAMIN B12/FOLATE, SERUM PA REGIS (0930) Reviewed date:03/14/2025 04:29:01 PM Interpretation: Performing Lab:LV [address], Monitor [id number] Brady Brown Notes/Report: NON-FASTING; NON-FASTING; NON-FASTING; NON-FASTING; NON-FAST FASTING:YES FASTING: YES VITAMIN B12 [phone] pg/mL Please Note: Although the reference range for vitamin B12 is 200-1100 pg/mL, it has been reported that between 5 and 10% of patients with values between 200 and 400 pg/mL may experience neuropsychiatric and hematologic abnormalities due to occult B12 deficiency; less than 1% of patients with values above 400 pg/mL will have symptoms. FOLATE, SERUM 7.5 Reference Range Low: <3.4 Borderline: 3.4-5.4 Normal: >5.4 VITAMIN D,25-OH,TOTAL,IA (17 080) Reviewed date:03/14/2025 04:29:01 PM Interpretation: Performing Lab:[facility] [address], BRAND-YOURSELFDsuqYQ[address] Brady Brown Notes/Report: NON-FASTING; NON-FASTING; NON-FASTING; NON-FASTING; NON-FAST FASTING:YES FASTING: YES VITAMIN D,25-OH,TOTAL,IA 46 30-100 ng/mL Vitamin D Status 25-OH Vitamin D: Deficiency: <20 ng/mL Insufficiency: 20 - 29 ng/mL Optimal: > or = 30 ng/mL For 25-OH Vitamin D testing on patients on D2-supplementation and patients for whom quantitation of D2 and D3 fractions is required, the QuestAssureD(TM) 25-OH VIT D, (D2,D3), LC/MS/MS is recommended: order code 47820 (patients >2yrs). See Note 1 Note 1 For additional information, please refer to http://education.Getting-in/faq/ZAD208 (This link is being provided for informational/ educational purposes only.) PTH, INTACT WITHOUT CALCIUM (44316) Reviewed date:03/14/2025 04:29:01 PM Interpretation: Performing Lab:[facility]-[place] Ukfi[address] [facility], [place] LjqbNL[address] Brady Brown Notes/Report: NON-FASTING PARATHYROID HORMONE, INTACT 54 16-77 pg/mL Interpretive Guide Intact PTH Calcium ------- Normal Parathyroid Normal Normal Hypoparathyroidism Low or Low Normal Low Hyperparathyroidism Primary Normal or High High Secondary High Normal or Low Tertiary High High Non-Parathyroid Hypercalcemia Low or Low Normal High Reason For Referral Reason DExa scan at [facility] Diagnosis 1 Chronic kidney disea se, stage 3b (N18.32) Referral Organization [facility] Referring Provider First Name Heladio Referring Provider Last Name Arpita Referring Provider Speciality Internal M edicine Referred Organization [facility] Referred Address [address],[address], Referred Provider Specialty Diagnostic R adiology Referral Priority Routine REASON FOR VISIT wellness, Nephrology wants a PTH and Labs - is fasting , A1C Medications Medication SIG (Take, Route, Frequency, Duration) Notes Start Date End Date Status Triamterene-HCTZ 37.5-25 MG 1 cap(s) orally once a day; Duration: 90 day(s) Active Pantoprazole Sodium 40 MG 1 tab(s) orally once a day; Duration: 90 days Active Atorvastatin Calcium 40 MG 1 tab(s) orally once a day; Duration: 90 days Active Levothyroxine Sodium 100 MCG 1 tab(s) orally once a day; Duration: 90 days Active metFORMIN HCl ER 750 MG 1 tab(s) orally once a day; Duration: 90 days 07/19/2024 Active CONSERVING DEVICE DIRECTED DIRECTED *Please review for potential replacement for e-prescription and drug interaction check* 03/22/2020 Active PEN NEEDLE 6MM 31G - ONCE A DAY; Duration: 30 DAY(S) *Please review for potential replacement for e-prescription and drug interaction check* 02/13/2020 Active Vitamin D3 50 MCG (2000 UT) as directed orally once a day; Duration: 30 day(s) Active Acetaminophen 500 MG 2 tab(s) orally every 6 hours prn Active Magnesium Oxide 400 MG 2tabs orally once a day; Duration: 30 days Active amLODIPine Besylate 2.5 MG 1 tab(s) orally once a day Active Biotin 1000 MCG 1 tab(s) orally once a day Active Zinc 50 MG 1 tab(s) orally once a day; Duration: 30 day(s) Active Vitamin C 500 MG 1 tab(s) orally once a day; Duration: 30 day(s) Active Farxiga 10 MG TAKE 1 TABLET BY MOUTH ONCE DAILY; Duration: 90 Active Losartan Potassium 50 MG 1 tab(s) orally once a day; Duration: 90 days Active Carvedilol 25 MG 1 tab(s) orally 2 times a day; Duration: 90 days Active Clopidogrel Bisulfate 75 MG 1 tab(s) orally once a day; Duration: 90 days 10/04/2024 Active Venlafaxine HCl 100 MG 1 tab(s) orally once a day; Duration: 30 days Active Immunizations Vaccine Route Administration Date Status Comme nts Boostrix IM Intramuscular 03/02/2025 Administered Social History Tobacco Use: Social History Observation Description Date Details (start date - stop date) Former Smoker NA - NA Smoking: Question Answer Notes Are you a: former smoker How long has it been since you last smoked? > 10 years Vital Signs Temperature 97.9 degrees Fahrenheit 03/02/20 25 Heart Rate 78 /min 03/02/2025 Blood pressure systolic 122 mm Hg 03/02/20 25 Blood pressure diastolic 68 mm Hg 025 Height 5 ft 3 in in 03/02/2025 Weight 236 lbs 03/02/2025 BMI 41.8 kg/m2 03/02/2025 Encounters Encounter Location Date Provider Diagnosis [address] [address] 03/02/2025 Heladio Palm Chronic kidney disea se, stage 3b N18.32 ; Type 2 diabetes mellitus with diabetic chronic kidney disease E11.22 ; Paroxysmal atrial fibrillation I48.0 ; Atherosclerosis of venetie coronary artery of ven[place] heart without angina pectoris I25.10 ; Hypothyroid E03.9 ; Obstructive sleep apnea G47.33 ; Encounter for immunization Z23 and Routine medical exam Z00.00 Assessments Encounter Date Diagnosis (ICD Code) Assessment Notes Treatment Notes Treatment Clinical Notes Section Notes 03/02/2025 Chronic kidney disease, stage 3b (ICD-10 - N18.32) Overall doing well, follows with [facility]. Check metabolic labs as noted. Please note all reviewed personally. Had microalbumin test done in January. Will check DEXA scan given history of chronic kidney disease z 03/02/2025 Type 2 diabetes mellitus with diabetic chronic kidney disease (ICD-10 - E11.22) Check A1c. On appropriate medications z 03/02/2025 Paroxysmal atrial fibrillation (ICD-10 - I48.0) No evidence of recurrence. z 03/02/2025 Atherosclerosis of venetie coronary artery of venetie heart without angina pectoris (ICD-10 - I25.10) No current cardiac symptoms z 03/02/2025 Hypothyroid (ICD-10 - E03.9) Clinically euthyroid z 03/02/2025 Obstructive sleep apnea (ICD-10 - G47.33) Doing well with CPAP z 03/02/2025 Encounter for immunization (ICD-10 - Z23) Tetanus vaccine today. Otherwise up-to-date with needed vaccines z 03/02/2025 Routine medical exam (ICD-10 - Z00.00) Aged out of colonoscopy. Keeps up with mammograms. Needs DEXA. Follows with [facility] for Mukherjee's screening. Non-smoker. No recent falls. Good functional status. Daughter is healthcare surrogate. Has a living will in place 3/3 word recall. Depression screening negative z Plan Of Treatment Treatment Notes Assessment Notes Chronic kidney disease, stage 3b Overall doing well, follows with [facility]. Check metabolic labs as noted. Please note all reviewed personally. Had microalbumin test done in January. Will check DEXA scan given history of chronic kidney disease Type 2 diabetes mellitus wit h diabetic chronic kidney disease Check A1c. On appropriate medications Paroxysmal atrial fibrillation No eviden ce of recurrence. Atherosclerosis of venetie co ronary artery of venetie heart without angina pectoris No current cardiac symptoms Hypothyroid Clinically euthyroid Obstructive sleep apnea Doing well with CPAP Encounter for immunization Tetanus vacci ne today. Otherwise up-to-date with needed vaccines Routine medical exam Aged out of colonoscopy. Keeps up with mammograms. Needs DEXA. Follows with [facility] for Mukherjee's screening. Non-smoker. No recent falls. Good functional status. Daughter is healthcare surrogate. Has a living will in place 11/07 word recall. Depression screening negative Pending Test Test Name Order Date DEXA Hip and Spine - Screening Microalbumin (In-House) 03/02/2025 Referrals Referral Date Details 03/02/2025 03/02/2025, DExa sca n at [facility], [address] [place], [address], Next Appt Details Follow Up: prn,4 Months, [place] son: Provider Name:Heladio Palm, 05/25/2025 09:30:00 AM, [address], [address], Progress Notes * Karo VELAZQUEZOB:[birth year] (75 yo F)Acc No.[id number]:03/02/2025 Progress notes Patient: Juwan SILVESTREMirtha VILLANUEVA Provider: Haritha Palm MD :1950 A ge:75 Y S ex:Female Date:03/02/2025 Address:[address] [place], [place] [id number] Subjective: * Chief Complaints: * 1 . Wellness. 2. Nephrology wants a PTH and Labs - is fasting , A1C. * HPI: g en: Patient here for follow-up of her regular problems and to go over her Medicare wellness status. Overall feels pretty good. I reviewed her HRA. See focused discussion of her problems in the assessment/plan below. * ROS: F UNCTIONAL STATUS: ADLS I ndependent for all ADL/IADL. * 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: A fib, Basal cell, HTN, HLD, COPD, Left renal artery rupture- ablation done, HSP, Diabetes, Colonoscopy 05/29 with two sessile polyps, EGD 05/29 with erosions and Mukherjee's esophagitis, Normal carotids and MRI . * Surgical History: C omplete hysterectomy , Cholecystectomy , Bladder repair , Basal cell removed from face , Left Renal ablation 10/2019, Colonoscopy- no polyps, repeat 2021, , Mukherjee's esophagus EGD 2018 , stent . * Hospitalization/Major Diagno stic Procedure: R espiratory failure- [facility] then transferred to - then to [facility] [place] for rehab 08/2019, [facility]- left kidney- rupture- renal ablation 10/2019. * Family History: F ather: 58 yrs, CAD. M other: , alzheimers, pin strokes. P aternal Grand Father: . P aternal Grand Mother: . M aternal Grand Father: . Maternal Grand Mother: . P aternal uncle: , CAD. P aternal aunt: , alzheimers, CAD. M aternal uncle: , alzheimers, stomach cancer. M aternal aunt: , dementia, CVA. S iblings: alive, HTN. C joel: alive, son- [place]- CAD. 1 sister(s) - healthy. 3 son(s) , 1 daughter(s) - healthy. . * Social History: S moking A re you a: f ormer smoker, H ow long has it been since you last smoked??> 10 years. R ecreational drug use: no. Exercise: no. Home smoke detector use: yes. Caffeine: yes, frequency: occ tea or soda. Living Will: No. Alcohol: no. Sexually active: no. Travel outside [place]: no. Occupation: retired. * Medications: T aking amLODIPine Besylate 2.5 [...] tab(s) orally once a day , Taking Venlafaxine HCl 100 MG Tablet 1 tab(s) orally once a day , Taking Farxiga 10 MG Tablet TAKE 1 TABLET BY MOUTH ONCE DAILY , Discontinued Macrobid 100 MG Capsule 1 capsule with food Orally every 12 hrs , Medication List reviewed and reconciled with the patient * Allergies: P enicillin: anaphylaxis - Allergy, IV CONTRAST: Allergy, SULFA DRUGS: Allergy, Codeine: Allergy, Cipro: tingling lips and tongue - Allergy, DECONGESTANTS: Allergy. Objective: * Vitals: N urse: dw, Pain: 0, Temp: 97.9, RR: 20, HR: 78, BP: 122/68, Ht: 5 ft 3 in, Wt: 236, BMI:41.8. * Examination: G eneral Examination: General P leasant and Cooperative, NAD on RA,. Heart: R egular Rate and Rhythm, no murmur, rubs or gallops. HEENT: p harynx and tonsils normal, TM's normal. Lungs: L CTAB, No wheezes, crackles or rhonchi, Good air movement,. Abdomen: S oft, NTND, BSNA, No organomegaly or peritoneal signs.. N o ankle edema. Uses cane for ambulation but only minimally. Stable walking down the hallway. Assessment: * Assessment: 1. C hronic kidney disease, stage 3b - N18.32 (Primary) 2 . T ype 2 diabetes mellitus with diabetic chronic kidney disease - E11.22 3 . P aroxysmal atrial fibrillation - I48.0 4 . A therosclerosis of venetie coronary artery of venetie heart without angina pectoris - I25.10 5 . H ypothyroid - E03.9 6 . O bstructive sleep apnea - G47.33 7 . E ncounter for immunization - Z23? 8. R outine medical exam - Z00.00 z Plan: * Treatment: Value Reference Range T 3 UPTAKE 31 22-35 - % * T 4 (THYROXINE), TOTAL 7.8 5.1-11.9 - mcg/dL * F REE T4 INDEX (T7) 2.4 1.4-3.8 - * T SH 1.65 0.40-4.50 - mIU/L * [facility]un [facility] 03/06/2025 0 9:44:31 AM EDT > lvm [facility] 03/09/2025 09:20:48 AM EDT > lvm [facility] 03/13/2025 11:43:11 AM EDT > lvm [facility] 03/14/2025 04:28:13 PM EDT > lvm . mailing letterThis lab was reviewed by Ranjit Dunn on 03/14/2025 at 16:29 PM EDT ?LAB: LIPID PANEL, STANDARD (7600)* Value Reference Range T RIGLYCERIDES 185 H <150 - mg/dL * C HOLESTEROL, TOTAL 161 <200 - mg/dL * H DL CHOLESTEROL 38 L > OR = 50 - mg/dL * L DL-CHOLESTEROL 95 - mg/dL (calc) * C HOL/HDLC RATIO 4.2 <5.0 - (calc) * N ON HDL CHOLESTEROL 123 <130 - mg/dL (calc) * [facility]un [facility] 03/06/2025 0 9:44:31 AM EDT > lvm [facility] 03/09/2025 09:20:48 AM EDT > lvm [facility] 03/13/2025 11:43:11 AM EDT > lvm [facility] 03/14/2025 04:28:13 PM EDT > lvm . mailing letterThis lab was reviewed by Ranjit Dunn on 03/14/2025 at 16:29 PM EDT ?LAB: COMPREHENSIVE METABOLIC PANEL (11748)* Value Reference Range G LUCOSE 187 H 65-99 - mg/dL * U ALL NITROGEN (BUN) 34 H 7-25 - mg/dL * C REATININE 1.21 H 0.60-1.00 - mg/dL * B UN/CREATININE RATIO 28 H 6-22 - (calc) * S ODIUM 141 135-146 - mmol/L * P OTASSIUM 4.0 3.5-5.3 - mmol/L * C HLORIDE 102 98-110 - mmol/L * C ARBON DIOXIDE 29 20-32 - mmol/L * C ALCIUM 9.5 8.6-10.4 - mg/dL * P ROTEIN, TOTAL 6.8 6.1-8.1 - g/dL * A LBUMIN 3.9 3.6-5.1 - g/dL * G LOBULIN 2.9 1.9-3.7 - g/dL (calc ) * A LBUMIN/GLOBULIN RATIO 1.3 1.0-2.5 - (calc) * B ILIRUBIN, TOTAL 0.3 0.2-1.2 - mg/dL * A LKALINE PHOSPHATASE 83 37-153 - U/L * A ST 11 10-35 - U/L * A LT 11 6-29 - U/L * E GFR 46 L > OR = 60 - mL/min/1 .73m2 * [facility]un [facility] 03/06/2025 0 9:44:31 AM EDT > lvm [facility] 03/09/2025 09:20:48 AM EDT > [facility] 11:43:11 AM EDT > [facility] 04:28:13 PM EDT > lvm . mailing letterThis lab was reviewed by Ranjit Dunn on 03/14/2025 at 16:29 PM EDT ?LAB: CBC (INCLUDES DIFF/PLT) (8401)* Value Reference Range W JUDITH BLOOD CELL COUNT 10.0 3.8-10.8 - Thousan d/uL * R ED BLOOD CELL COUNT 4.65 3.80-5.10 - Million/ uL * H EMOGLOBIN 14.2 11.7-15.5 - g/dL * H EMATOCRIT 44.6 35.0-45.0 - % * M CV 95.9 80.0-100.0 - fL * M CH 30.5 27.0-33.0 - pg * M CHC 31.8 L 32.0-36.0 - g/dL * R DW 13.3 11.0-15.0 - % * P LATELET COUNT 245 140-400 - Thousand/u L * N EUTROPHILS 67.2 - % * A BSOLUTE NEUTROPHILS 6720 8099-5914 - cells/uL * L YMPHOCYTES 21.0 - % * A BSOLUTE LYMPHOCYTES 2100 850-3900 - cells/uL * M ONOCYTES 6.6 - % * A BSOLUTE MONOCYTES 660 200-950 - cells/uL * E OSINOPHILS 4.6 - % * A BSOLUTE EOSINOPHILS 460 15-500 - cells/uL * B ASOPHILS 0.6 - % * A BSOLUTE BASOPHILS 60 0-200 - cells/uL * M PV 9.5 7.5-12.5 - fL * [facility] 03/06/2025 0 9:44:31 AM EDT > lvm [facility] 03/09/2025 09:20:48 AM EDT > lvm [facility] 03/13/2025 11:43:11 AM EDT > lvm [facility] 03/14/2025 04:28:13 PM EDT > lvm . mailing letterThis lab was reviewed by Ranjit Dunn on 03/14/2025 at 16:29 PM EDT ?LAB: HEMOGLOBIN A1c (496)* Value Reference Range H EMOGLOBIN A1c 7.9 H <5.7 - % * [facility] 03/06/2025 0 9:44:31 AM EDT > lvm [facility] 03/09/2025 09:20:48 AM EDT > lvm [facility] 03/13/2025 11:43:11 AM EDT > lvm [facility] 03/14/2025 04:28:13 PM EDT > lvm . mailing letterThis lab was reviewed by Ranjit Dunn on 03/14/2025 at 16:29 PM EDT ?LAB: VITAMIN B12/FOLATE, SERUM PANEL (7065)* Value Reference Range F OLATE, SERUM 7.5 - ng/mL * V ITAMIN B12 478 300-5287 - pg/mL * [facility]un [facility] 03/06/2025 0 9:44:31 AM EDT > lvm [facility] 03/09/2025 09:20:48 AM EDT > lvm [facility] 03/13/2025 11:43:11 AM EDT > lvm [facility] 03/14/2025 04:28:13 PM EDT > lvm . mailing letterAnanyas lab was reviewed by Ranjit Dunn on 03/14/2025 at 16:29 PM EDT ?LAB: VITAMIN D,25-OH,TOTAL,IA (94387)* Value Reference Range V ITAMIN D,25-OH,TOTAL,IA 46 30-100 - ng/mL * [place] [facility] 03/06/2025 0 9:44:31 AM EDT > lvm [facility] 03/09/2025 09:20:48 AM EDT > lvm [facility] 03/13/2025 11:43:11 AM EDT > lvm [facility] 03/14/2025 04:28:13 PM EDT > [facility] Ranjit Dunn on 03/14/2025 at 16:29 PM EDT ?LAB: PTH, INTACT WITHOUT CALCIUM (35943)* Value Reference Range P ARATHYROID HORMONE, 54 16-77 - pg/mL * [facility] 03/06/2025 0 9:44:31 AM EDT > lvm [facility] 03/09/2025 09:20:48 AM EDT > lvm [facility] 03/13/2025 11:43:11 AM EDT > lvm [facility] 03/14/2025 04:28:13 PM EDT > [facility] by Ranjit Dunn on 03/14/2025 at 16:29 PM EDT ?Imaging: DEXA Hip and Spine - Screening* Notes: Overall doing well, follows with [facility]. Check metabolic labs as noted. Please note all reviewed personally. Had microalbumin test done in January. Will check DEXA scan given history of chronic kidney disease? Referral To: ?Reason:DExa scan at [facility] 2.?Type 2 diabetes mellitus with diabetic chronic kidney disease?LAB: Microalbumin (In-House) ?LAB: THYROID PANEL WITH TSH (7444)* Value Reference Range T 3 UPTAKE 31 22-35 - % * T 4 (THYROXINE), TOTAL 7.8 5.1-11.9 - mcg/dL * F REE T4 INDEX (T7) 2.4 1.4-3.8 - * T SH 1.65 0.40-4.50 - mIU/L * [facility] 03/06/2025 0 9:44:31 AM EDT > lvm [facility]un [facility] 03/09/2025 09:20:48 AM EDT > lvm [facility] 03/13/2025 11:43:11 AM EDT > lvm [facility] 03/14/2025 04:28:13 PM EDT > lvm . mailing letterThis lab was reviewed by Ranjit Dunn on 03/14/2025 at 16:29 PM EDT ?LAB: LIPID PANEL, STANDARD (7600)* Value Reference Range T RIGLYCERIDES 185 H <150 - mg/dL * C HOLESTEROL, TOTAL 161 <200 - mg/dL * H DL CHOLESTEROL 38 L > OR = 50 - mg/dL * L DL-CHOLESTEROL 95 - mg/dL (calc) * C HOL/HDLC RATIO 4.2 <5.0 - (calc) * N ON HDL CHOLESTEROL 123 <130 - mg/dL (calc) * Ranjit Dunn 03/06/2025 0 9:44:31 AM EDT > lvm [facility]un [facility] 03/09/2025 09:20:48 AM EDT > lvm [facility]un [facility] 03/13/2025 11:43:11 AM EDT > lvm [place] 03/14/2025 04:28:13 PM EDT > lvm . mailing letterThis lab was reviewed by Ranjit Dunn on 03/14/2025 at 16:29 PM EDT ?LAB: CBC (INCLUDES DIFF/PLT) (2999)* Value Reference Range W JUDITH BLOOD CELL COUNT 10.0 3.8-10.8 - Thousan d/uL * R ED BLOOD CELL COUNT 4.65 3.80-5.10 - Million/ uL * H EMOGLOBIN 14.2 11.7-15.5 - g/dL * H EMATOCRIT 44.6 35.0-45.0 - % * M CV 95.9 80.0-100.0 - fL * M CH 30.5 27.0-33.0 - pg * M CHC 31.8 L 32.0-36.0 - g/dL * R DW 13.3 11.0-15.0 - % * P LATELET COUNT 245 140-400 - Thousand/u L * N EUTROPHILS 67.2 - % * A BSOLUTE NEUTROPHILS 6720 3693-6921 - cells/uL * L YMPHOCYTES 21.0 - % * A BSOLUTE LYMPHOCYTES 2100 850-3900 - cells/uL * M ONOCYTES 6.6 - % * A BSOLUTE MONOCYTES 660 200-950 - cells/uL * E OSINOPHILS 4.6 - % * A BSOLUTE EOSINOPHILS 460 15-500 - cells/uL * B ASOPHILS 0.6 - % * A BSOLUTE BASOPHILS 60 0-200 - cells/uL * M PV 9.5 7.5-12.5 - fL * [facility]un [facility] 03/06/2025 0 9:44:31 AM EDT > lvm [facility]un [facility] 03/09/2025 09:20:48 AM EDT > lvm [facility] 03/13/2025 11:43:11 AM EDT > lvm [facility] 03/14/2025 04:28:13 PM EDT > lvm . mailing letterThis lab was reviewed by Ranjit Dunn on 03/14/2025 at 16:29 PM EDT ?LAB: HEMOGLOBIN A1c (496)* Value Reference Range H EMOGLOBIN A1c 7.9 H <5.7 - % * [facility] 03/06/2025 0 9:44:31 AM EDT > [facility] 03/09/2025 09:20:48 AM EDT > [facility] 03/13/2025 11:43:11 AM EDT > [facility] 03/14/2025 04:28:13 PM EDT > lvm . mailing letterThis lab was reviewed by Ranjit Dunn on 03/14/2025 at 16:29 PM EDT ?LAB: VITAMIN B12/FOLATE, SERUM PANEL (7065)* Value Reference Range F OLATE, SERUM 7.5 - ng/mL * V ITAMIN B12 851 481-7786 - pg/mL * [facility] 03/06/2025 0 9:44:31 AM EDT > [facility] 03/09/2025 09:20:48 AM EDT > [facility] 03/13/2025 11:43:11 AM EDT > [facility] 03/14/2025 04:28:13 PM EDT > lvm . mailing letterThis lab was reviewed by Ranjit Dunn on 03/14/2025 at 16:29 PM EDT ?LAB: VITAMIN D,25-OH,TOTAL,IA (10187)* Value Reference Range V ITAMIN D,25-OH,TOTAL,IA 46 30-100 - ng/mL * [facility] 03/06/2025 0 9:44:31 AM EDT > [facility] 03/09/2025 09:20:48 AM EDT > [facility] 03/13/2025 11:43:11 AM EDT > [facility] 03/14/2025 04:28:13 PM EDT > lvm . mailing letterThis lab was reviewed by Ranjit Dunn on 03/14/2025 at 16:29 PM EDT Notes: Check A1c. On appropriate medications??3.?Paroxysmal atrial fibrillation? Notes: No evidence of recurrence.??4.?Atherosclerosis of [place] coronary artery of [place] heart without angina pectoris? Notes: No current cardiac symptoms??5.?Hypothyroid?LAB: THYROID PANEL WITH TSH (7444)* Value Reference Range T 3 UPTAKE 31 22-35 - % * T 4 (THYROXINE), TOTAL 7.8 5.1-11.9 - mcg/dL * F REE T4 INDEX (T7) 2.4 1.4-3.8 - * T SH 1.65 0.40-4.50 - mIU/L * [facility] 03/06/2025 0 9:44:31 AM EDT > [facility] 03/09/2025 09:20:48 AM EDT > [facility] 03/13/2025 11:43:11 AM EDT > [facility] 03/14/2025 04:28:13 PM EDT > lvm . mailing letterThis lab was reviewed by Ranjit Dunn on 03/14/2025 at 16:29 PM EDT ?LAB: LIPID PANEL, STANDARD (7600)* Value Reference Range T RIGLYCERIDES 185 H <150 - mg/dL * C HOLESTEROL, TOTAL 161 <200 - mg/dL * H DL CHOLESTEROL 38 L > OR = 50 - mg/dL * L DL-CHOLESTEROL 95 - mg/dL (calc) * C HOL/HDLC RATIO 4.2 <5.0 - (calc) * N ON HDL CHOLESTEROL 123 <130 - mg/dL (calc) * [facility] 03/06/2025 0 9:44:31 AM EDT > [facility] 03/09/2025 09:20:48 AM EDT > [facility] 03/13/2025 11:43:11 AM EDT > [facility] 03/14/2025 04:28:13 PM EDT > lvm . mailing letterThis lab was reviewed by Ranjit Dunn on 03/14/2025 at 16:29 PM EDT ?LAB: CBC (INCLUDES DIFF/PLT) (6796)* Value Reference Range W JUDITH BLOOD CELL COUNT 10.0 3.8-10.8 - Thousan d/uL * R ED BLOOD CELL COUNT 4.65 3.80-5.10 - Million/ uL * H EMOGLOBIN 14.2 11.7-15.5 - g/dL * H EMATOCRIT 44.6 35.0-45.0 - % * M CV 95.9 80.0-100.0 - fL * M CH 30.5 27.0-33.0 - pg * M CHC 31.8 L 32.0-36.0 - g/dL * R DW 13.3 11.0-15.0 - % * P LATELET COUNT 245 140-400 - Thousand/u L * N EUTROPHILS 67.2 - % * A BSOLUTE NEUTROPHILS 6720 9741-7989 - cells/uL * L YMPHOCYTES 21.0 - % * A BSOLUTE LYMPHOCYTES 2100 850-3900 - cells/uL * M ONOCYTES 6.6 - % * A BSOLUTE MONOCYTES 660 200-950 - cells/uL * E OSINOPHILS 4.6 - % * A BSOLUTE EOSINOPHILS 460 15-500 - cells/uL * B ASOPHILS 0.6 - % * A BSOLUTE BASOPHILS 60 0-200 - cells/uL * M PV 9.5 7.5-12.5 - fL * [facility] 03/06/2025 0 9:44:31 AM EDT > [facility] 03/09/[facility]25 09:20:48 AM EDT > [facility] 03/13/2025 11:43:11 AM EDT > [facility] 03/14/2025 04:28:13 PM EDT > lvm . mailing letterThis lab was reviewed by Ranjit Dunn on 03/14/2025 at 16:29 PM EDT ?LAB: HEMOGLOBIN A1c (496)* Value Reference Range H EMOGLOBIN A1c 7.9 H <5.7 - % * [facility] 03/06/2025 0 9:44:31 AM EDT > [facility] 03/09/2025 09:20:48 AM EDT > lvm [facility] 03/13/2025 11:43:11 AM EDT > [facility] 03/14/2025 04:28:13 PM EDT > lvm . mailing letterThis lab was reviewed by Ranjit Dunn on 03/14/2025 at 16:29 PM EDT ?LAB: VITAMIN B12/FOLATE, SERUM PANEL (7065)* Value Reference Range F OLATE, SERUM 7.5 - ng/mL * V ITAMIN B12 278 071-3108 - pg/mL * [facility] 03/06/2025 0 9:44:31 AM EDT > [facility] 03/09/2025 09:20:48 AM EDT > [facility] 03/13/2025 11:43:11 AM EDT > [facility] 03/14/2025 04:28:13 PM EDT > lvm . mailing letterThis lab was reviewed by Ranjit Dunn on 03/14/2025 at 16:29 PM EDT ?LAB: VITAMIN D,25-OH,TOTAL,IA (22072)* Value Reference Range V ITAMIN D,25-OH,TOTAL,IA 46 30-100 - ng/mL * [facility] 03/06/2025 0 9:44:31 AM EDT > [facility] 03/09/2025 09:20:48 AM EDT > [facility] 03/13/2025 11:43:11 AM EDT > lvm [facility] 03/14/2025 04:28:13 PM EDT > lvm . mailing letterThis lab was reviewed by Ranjit Dunn on 03/14/2025 at 16:29 PM EDT Notes: Clinically euthyroid??6.?Obstructive sleep apnea? Notes: Doing well with CPAP??7.?Encounter for immunization? Notes: Tetanus vaccine today. Otherwise up-to-date with needed vaccines?? 8.?Routine medical exam? Notes: Aged out of colonoscopy. Keeps up with mammograms. Needs DEXA. Follows with [facility] for Mukherjee's screening. Non-smoker. No recent falls. Good functional status. Daughter is healthcare surrogate. Has a living will in place 3/3 word recall. Depression screening negative?? * Immunizations: Boostrix : .5 mL (Route: Intramuscular) given by MEGHA Islas on Left Deltoid * Procedure Codes: 9 0715 Boostrix, 47795 immunization administration through 18 years of age via any route of administration., 87113 MICROALBUMIN, URINE, Modifiers: QW , G0439 ANNUAL WELLNESS VST; PPS SUBSQT VST, 1170F FUNCTIONAL STATUS ASSESSMENT, G8399 PT W/DXA DOCUMENT OR ORDER, 1123F ADVANCED DIRECTIVE - HAS A LIVING WILL, G8417 BMI >=30 CALCUATE W/FOLLOWUP, G8510 NEGATIVE SCREENING F/U NOT REQUIRED, G9903 Pt scrn tbco id as non user, 1036F TOBACCO NON-USER, G8783 NORMAL BP READING DOC F/U NOT RQR * Follow Up: p rn,4 Months * * Sign off status: Completed true * Provider: Haritha Palm MD Date: 0 03/02/2025 Generated for Printi ng/Fadyllang/eTransmitting on: 0 03/19/2025 06:01 AM EDT History and Physical Notes * HPI (History of Present Illness) Category Sub-Category Detail Notes Category Not es gen Patient here for follow-up of her regular problems and to go over her Medicare wellness status. Overall feels pretty good. I reviewed her HRA. See focused discussion of her problems in the assessment/plan below Examination Category Sub-Category Detail Notes Category Not es General Examination HEENT: pharynx and tonsils normal, TM's normal No ankle edema. Uses cane for ambulation but only minimally. Stable walking down the hallway. Heart: Regular Rate and Rhy thm, no murmur, rubs or gallops Lungs: LCTAB, No wheezes, c rackles or rhonchi, Good air movement, Abdomen: Soft, NTND, BSNA, No organomegaly or peritoneal signs. General Ple[place] and [place] t[place], NAD on RA, Consultation Request Notes Referral Date Referring Provider Referred Provider Not es 03/02/2025 Heladio Palm , DEx[facility] scan at [facility]
--- OUTSIDE RECORDS SUMMARY | 2025-03-19 06:00 | XMS_ITS | Encounter Summary ---
Author Organization Healthcare Address [address] [place] [address] Care Team Providers Care Dry Cleaner Presser Name Role Phone Heladio Palm MD Primary Care Provider + [phone] Encounter Details Date Type Department Care Team (Late st Contact Info) Description 03/02/2025 Telephone [facility] [address] [place] [address] Luis Olivares MD [address] [address] Social History Tobacco Use Types Packs/Day Years Used Date Smoking Tobacco: Former Cigarettes 1 7 0 09/07/1992 - 09/07/1999 Passive Smoke Exposure: Past Smokeless Tobacco: Never Alcohol Use Standard Drinks/Week Comments Not Currently 0 (1 standard drink = 0.6 oz pur e alcohol) PHQ-2 Answer Date Recorded Patient Health Questionnaire-2 Score 0 08/08/2024 PHQ-9 Answer Date Recorded Patient Health Questionnaire-9 Score 12 06/12/2023 PHQ-2A Answer Date Recorded Patient Health Questionnaire-2 Score 4 06/12/2023 Comments No Sex and Gender Information Value Date Recorded Sex Assigned at Not on file Legal Sex Female 8:26 PM EDT Gender Identity Not on file Sexual Orientation Not on file documented as of this encounter Miscellaneous Notes * Telephone Encounter - Tonia Jade - 03/02/2025 1:01 PM EDT Paperwork/Documentation Request Patient Name: Mirtha Lester Pack Type: Patient was seen on 12/30 for a CEE and needs the DMV for completed for her DL renewal Due Date: unknown date Send To: Mail Best contact number: [phone] (home) Optimal time of day to reach caller: ANYTIME Additional comments/information from caller: None Note: Please do not reply to this message. Follow-up communication and further actions as a result of this message need to be communicated with the patient directly, if the patient is not active onMyChart. If the patient is active on MyChart, they will receive notification of the communication/outcome via [employer]. documented in this encounter Plan of Treatment Upcoming Encounters Date Type Department Care Team (Late st Contact Info) Description 01/26/2026 11:00 AM EDT Office Visit [facility] [address] [place] [address] Luis Olivares MD 110 [facility] [address] [place] [address] documented as of this encounter Visit Diagnoses Not on filedocumented in this encounter Additional Health Concerns Assessment Noted Time PHQ-9 Depression Total Score: 12 023 12:53 PM EDT A fall risk assessment has been complete d for the patient 12/30/2024 10:32 AM EDT A Body Mass Index follow-up plan has been documented for the patient 12/30/2024 11:11 AM EDT documented as of this encounter Care Teams Dry Cleaner Presser Relationship Specialty Start Date End Date Heladio Palm MD [address] [place] [address] PCP - General Internal Medicine 05/02/22 documented as of this encounter
--- OUTSIDE RECORDS SUMMARY | 2025-03-19 06:00 | XMS_ITS | Encounter Summary ---
Author Organization Healthcare Address [address] [place] [id number] Care Team Providers Care Automotive Worker Name Role Phone Heladio Palm MD Primary Care Provider + [phone] Encounter Details Date Type Department Care Team ([facility] Contact Info) Description 02/16/2025 Telephone [facility] [address], [address] [place] [address] Daxa Martin MBBS [address] [place], [place] [id number] Social History Tobacco Use Types Packs/Day Years [...] encounter Miscellaneous Notes * Telephone Encounter - Whitney Dubon - 02/21/2025 10:13 AM EDT L/m to r/s * Telephone Encounter - JadielKarina - 02/20/2025 12:28 PM EDT Patient Phone Message Reason for Call: PT called back to schedule an appt but [facility] Best contact number and optimal time of day to reach caller: [phone] Note: Please do not reply to this message. Follow-up communication and further actions as a result of this message need to be communicated with the patient directly, if the patient is not active onMyChart. If the patient is active on MyChart, they will receive notification of the communication/outcome via [employer]. * Telephone Encounter - Whitney Dubon - 02/17/2025 9:11 AM EDT L/m to reschedule * Telephone Encounter - Rosie Dewitt - 02/16/2025 9:25 AM EDT Clinical Concern/Question Reason for Call: pt [facility], sending to clinic for availability Best contact number: Other: [phone] Optimal time of day to reach caller: ANYTIME Additional comments/information from caller: None Note: Please do not reply to this message. Follow-up communication and further actions as a result of this message need to be communicated with the patient directly, if the patient is not active onMyChart. If the patient is active on MyChart, they will receive notification of the communication/outcome via [employer]. documented in this encounter Plan of Treatment Upcoming Encounters Date Type Department Care Team (Late st Contact Info) Description 01/26/2026 11:00 AM EDT Office Visit [facility] [address] [place] [address] Luis Olivares MD [address] [place] [address] documented as of this encounter [...] documented as of this encounter Care Teams Automotive Worker Relationship Specialty Start Date End Date Heladio Palm MD [address] [place] [address] PCP - General Internal Medicine 05/02/22 documented as of this encounter
--- OUTSIDE RECORDS SUMMARY | 2025-03-19 06:00 | XMS_ITS | Encounter Summary ---
Author Organization Healthcare Address [address] [place] [address] Care Team Providers Care Equipment Tester Name Role Phone Heladio Palm MD Primary Care Provider [phone] Reason for Visit * Reason Onset Date Comments HCN Clinical Concern/Question 02/27/2025 Encounter Details Date Type Department Care Team (Late st Contact Info) Description 02/27/2025 Telephone [facility] Mineral Metabolism [address], [address] [place] [address] Alejandra Camacho MD [address] [place] [address] HCN Clinical Concern/Question Social History Tobacco Use [...] Miscellaneous Notes * Telephone Encounter - Whitney Doan - 03/02/2025 11:22 AM EDT Received telephone orders for hypercalcemia E83.52, refaxed with dx code * Telephone Encounter - Laurie Gaines - 03/01/2025 10:02 AM EDT Status Update Call #3 3rd call regarding the status of the initial request. Best contact number: Other: [phone] Optimal time of day to reach caller: ANYTIME Additional comments/information from caller: have Allan Hernandez on the line regarding the PT and needing a different ICD DX Code for PTH total intact failed medical necessity the codes that have been provided do not work. Can someone please take this call to discuss with them and provide updated info Note: Please do not reply to this message. Follow-up communication and further actions as a result of this message need to be communicated with the patient directly, if the patient is not active onMyChart. If the patient is active on MyChart, they will receive notification of the communication/outcome via [employer]. * Telephone Encounter - Whitney Doan - 02/27/2025 2:27 PM EDT Received telephone readback for E21.3 ICD 10 code, faxed lab order * Addendum Note - Whitney Doan - 02/27/2025 2:27 PM EDTAddended by: WHITNEY DOAN on: 02/27/2025 02:27 PM Modules accepted: Orders * Telephone Encounter - Li Dewitt - 02/27/2025 12:37 PM EDT Clinical Concern/Question Reason for Call: Lab states new dx code doesn't meet medical necessity either. Asking for new orders to be sent again. Best contact number: Other: [phone] Optimal time of day to reach caller: ANYTIME Additional comments/information from caller: Not Applicable Note: Please do not reply to this message. Follow-up communication and further actions as a result of this message need to be communicated with the patient directly, if the patient is not active onMyChart. If the patient is active on MyChart, they will receive notification of the communication/outcome via [employer]. * Telephone Encounter - Whitney Doan - 02/27/2025 12:19 PM EDT Received telephone readback orders from Dr. 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 Best contact number: Other: [phone] Optimal time of day to reach caller: ANYTIME Additional comments/information from caller: None Note: Please do not reply to this message. Follow-up communication and further actions as a result of this message need to be communicated with the patient directly, if the patient is not active onMyChart. If the patient is active on MyChart, they will receive notification of the communication/outcome via [employer]. documented in this encounter Plan of Treatment Upcoming Encounters Date Type Department Care Team (Late st Contact Info) Description 01/26/2026 11:00 AM EDT Office Visit [facility] [address] [place] [address] Luis Olivares MD 110 [facility] [address] [place] [address] Scheduled Orders Name Type Priority Associated Diagnoses Orde r Schedule PTH Intact Total Lab Routine Hyperparathyroidism, unspecified ([facility]) Expected: 02/27/2025 (Approximate), Expires: 08/29/2026 documented as of this encounter Visit Diagnoses Diagnosis Renal osteodystrophy- Primary Hyperparathyroidism, unspecified ([facility]) Hyperparathyroidism, unspecified documented in this encounter Additional Health Concerns Assessment Noted Time PHQ-9 Depression Total Score: 12 023 12:53 PM EDT A fall risk assessment has been complete d for the patient 12/30/2024 10:32 AM EDT A Body Mass Index follow-up plan has been documented for the patient 12/30/2024 11:11 AM EDT documented as of this encounter Care Teams Equipment Tester Relationship Specialty Start Date End Date Heladio Palm MD [address] [place] [address] PCP - General Internal Medicine 05/02/22 documented as of this encounter
--- OUTSIDE RECORDS SUMMARY | 2025-03-19 06:00 | XMS_ITS | Encounter Summary ---
Author Organization Healthcare Address [address] [place] [address] Care Team Providers Care Pulp Maker Name Role Phone Heladio Palm MD Primary Care Provider + [phone] Encounter Details Date Type Department Care Team ([facility] Contact Info) Description 02/27/2025 Orders Only [facility], Bone & Mineral Metabolism [address], [address] [place] [address] Whitney Doan Hypercalcemia (Primary Dx) Social History Tobacco Use Types [...] encounter Miscellaneous Notes * Progress Notes - Whitney Doan - 02/27/2025 12:18 PM EDT Received telephone order for Hypercalcemia E83.52 documented in this encounter Plan of Treatment Upcoming Encounters Date Type Department Care Team (Late st Contact Info) Description 01/26/2026 11:00 AM EDT Office Visit [facility] [address] [place] [address] Luis Olivares MD [address] [place] [address] Scheduled Orders Name Type Priority Associated Diagnoses Orde r Schedule PTH Intact Total Lab Routine Hypercalcemia Expected: 03/02/2025 (Approximate), Expires: 09/01/2026 documented as of this encounter Visit Diagnoses Diagnosis Hypercalcemia- Primary documented in this encounter Additional Health Concerns Assessment Noted Time PHQ-9 Depression Total Score: 12 023 12:53 PM EDT A fall risk assessment has been complete d for the patient 12/30/2024 10:32 AM EDT A Body Mass Index follow-up plan has been documented for the patient 12/30/2024 11:11 AM EDT documented as of this encounter Care Teams Pulp Maker Relationship Specialty Start Date End Date Heladio Palm MD [address] [place] [address] PCP - General Internal Medicine 05/02/22 documented as of this encounter
--- OUTSIDE RECORDS SUMMARY | 2025-03-19 06:01 | XMS_ITS | Encounter Summary ---
Author Organization Healthcare Address [address] [place] [address] Care Team Providers Care Color Expert Name Role Phone Heladio Palm MD Primary Care Provider + [phone] Encounter Details Date Type Department Care Team ([facility] Contact Info) Description 02/09/2025 Telephone [facility] [address], [address] [place] [address] Lashonda William, LIFE SCIENCES TEACHER GS - 7 MAIN MEDICAL-SURGICAL Social History [...] * Telephone Encounter - Lashonda William - 02/09/2025 8:13 AM EDT 02/09/25 called pt left Vm about labs being faxed to [facility] [phone].AR documented in this encounter Plan of Treatment Upcoming Encounters Date Type Department Care Team (Late st Contact Info) Description 01/26/2026 11:00 AM EDT Office Visit [facility] [address] [place] [address] Luis Olivares MD [address] [place] [address] documented as of this encounter [...] documented as of this encounter Care Teams Color Expert Relationship Specialty Start Date End Date Heladio Palm MD [address] [place] [address] PCP - General Internal Medicine 05/02/22 documented as of this encounter
--- OUTSIDE RECORDS SUMMARY | 2025-03-19 06:01 | XMS_ITS | Encounter Summary ---
Author Organization Healthcare Address [address] [place] [address] Care Team Providers Care Oracle Financial Application Developer Name Role Phone Heladio Palm MD Primary Care Provider + [phone] Encounter Details Date Type Department Care Team ([facility] Contact Info) Description 03/13/2025 Telephone [facility]eral Metabolism [address], [address] [place] [address] Alejandra Camacho MD [address] [place] [address] Social History Tobacco Use Types Packs/Day Years [...] * Telephone Encounter - Whitney Dubon - 03/13/2025 2:19 PM EDT L/m * Telephone Encounter - Karina Duvall - 03/13/2025 9:39 AM EDT Patient Phone Message Reason for Call: Pt is asking to rs her appt that she had today. No openings are populating in Epic Best contact number and optimal time of day to reach caller: [phone] Note: Please do not reply to this message. Follow-up communication and further actions as a result of this message need to be communicated with the patient directly, if the patient is not active onMyChart. If the patient is active on MyChart, they will receive notification of the communication/outcome via [employer]. documented in this encounter Plan of Treatment Upcoming Encounters Date Type Department Care Team (Late st Contact Info) Description 01/26/2026 11:00 AM EDT Office Visit [facility] [address] [place] [address] Luis Olivares MD [address] [address] documented as of this encounter [...] documented as of this encounter Care Teams Oracle Financial Application Developer Relationship Specialty Start Date End Date Heladio Palm MD [address] [place] [address] PCP - General Internal Medicine 05/02/22 documented as of this encounter
--- OUTSIDE RECORDS SUMMARY | 2025-03-19 06:01 | XMS_ITS | Encounter Summary ---
Author Organization Healthcare Address [address] [place] [address] Care Team Providers Care Secondary Spanish Teacher Name Role Phone Heladio Palm MD Primary Care Provider + [phone] Encounter Details Date Type Department Care Team (Latest Contact Info) Description 01/30/2025 Travel Social History Tobacco Use Types Packs/Day [...] Description 01/26/2026 11:00 AM EDT Office Visit [facility] [address] [place] [address] Luis Olivares MD [address] [address] documented as of this encounter [...] documented as of this encounter Care Teams Secondary Spanish Teacher Relationship Specialty Start Date End Date Heladio Palm MD [address] [place] [address] PCP - General Internal Medicine 05/02/22 documented as of this encounter
--- OUTSIDE RECORDS SUMMARY | 2025-03-19 06:01 | XMS_ITS | Encounter Summary ---
Author Organization Healthcare Address [address] [place] [address] Care Team Providers Care Hospital Supervisor Name Role Phone Heladio Palm MD Primary Care Provider + [phone] Encounter Details Date Type Department Care Team ([facility] Contact Info) Description 02/09/2025 Telephone [facility] Nephrology, Bone & Mineral Metabolism [address], [address] [place] [address] Lashonda William, FABRICATION MIG WELDER GS - 7 MAIN MEDICAL-SURGICAL Social History [...] Telephone Encounter - Lashonda William - 02/09/2025 8:36 AM EDT 02/09/25 CALLED PT REMIND PT THAT HER LABS HAS BEEN FAXED TO [facility].[phone]. documented in this encounter Plan of Treatment Upcoming Encounters Date Type Department Care Team (Late st Contact Info) Description 01/26/2026 11:00 AM EDT Office Visit [facility] [address] [place] [address] Luis Olivares MD [address] [facility] [address] [place] [address] documented as of this encounter [...] documented as of this encounter Care Teams Hospital Supervisor Relationship Specialty Start Date End Date Heladio Palm MD [address] [place], [place] [address] PCP - General Internal Medicine 05/02/22 documented as of this encounter
--- OUTSIDE RECORDS SUMMARY | 2025-03-19 06:01 | XMS_ITS | Clinical Summary ---
Author Organization [facility] Address [address] [place] [address] Care Team Providers Care Automatic Mold Sander Name Role Phone Heladio Palm MD Primary Care Provider + [phone] Allergies Active Allergy Reactions Criticality Noted Date Comments Ciprofloxacin Unknown - Patient states they do not know rxn details Low 10/11/2010 Codeine Anaphylaxis,Nausea, Unknown - Patient states they do not know rxn details,Other - please document in the comment field High 10/11/2010 Gadolinium Derivatives Shortness of breath High 1001/2022 Iodinated Contrast Media Shortness of breath High [...] TWICE A DAY FOR 30 DAYS 04/17/2022 Active levothyroxine (Synthroid, Levoxyl) 100 MCG tablet Take 1 tablet (100 mcg) by mouth 1 (one) time each day. 03/01/2022 Active venlafaxine (Effoxor) 100 MG tablet Take 1 tablet (100 mg) by mouth 1 (one) time each day. 04/19/2022 Active cholecalciferol (Vitamin D3) 25 MCG (1000 UT) tablet Take 1 tablet (1,000 Units) by mouth 1 (one) time each day. Active magnesium oxide (Mag-Ox) 400 (240 Mg) MG tablet Take 1 tablet (400 mg) by mouth 1 (one) time each day. Active clopidogrel (Plavix) 75 MG tablet Take 1 tablet (75 mg) by mouth 1 (one) time each day. 07/01/2022 Active losartan (Cozaar) 50 MG tablet TAKE 1 TABLET BY MOUTH EVERY DAY FOR 30 DAYS 06/18/2022 Active biotin 1000 MCG tablet 1 (one) time each day at the same time. Active atorvastatin (Lipitor) 80 MG tabletIndicatio ns:Coronary artery disease involving [place] coronary artery of [place] heart without angina pectoris TAKE 1 TABLET BY MOUTH 1 TIME EACH DAY. 90 tablet 3 01/14/2023 Active dapagliflozin (Farxiga) 10 MG tablet Take 1 tablet (10 mg) by mouth 1 (one) time each day. Active triamterene-hyd roCHLOROthiazid e (Dyazide) 37.5-25 MG capsule Take 1 capsule by mouth 1 (one) time each day. FOR 90 DAYS 05/04/2023 Active acetaminophen (Tylenol 8 Hour) 650 MG ER tablet Take 1 tablet (650 mg) by mouth every 8 (eight) hours if needed for mild pain. Do not crush, chew, or split. Active methocarbamol (Robaxin) 500 MG tablet Take 1 tablet by mouth 4 (four) times a day. 90 tablet 1 12/29/2024 Active Active Problems Problem Noted Date Diagnosed Date Stage 3 chronic kidney disease 08/18/2024 Elevated serum creatinine 12/03/2023 Chronic hypercapnic respiratory [...] Encounters Date Type Department Care Team Description 03/13/2025 Telephone [facility] Bone & Mineral Metabolism [address], [address] [place] [address] Alejandra Camacho MD 03/12/2025 Travel 03/02/2025 Telephone [facility] [address] [place] [address] Luis Olivares MD 02/27/2025 Orders Only [facility] Nephrology, Bone & Mineral Metabolism [address], [address] [place] [address] Whitney Doan Hypercalcemia (Primary Dx) 02/27/2025 [facility] Nephrology, Bone & Mineral Metabolism [address], [address] [place] [address] Alejandra Camacho MD [facility] Clinical Concern/Question 02/16/2025 [facility] Nephrology, Bone & Mineral Metabolism [address], [address] [place] [address] Daxa Martin MBBS 02/09/2025 [facility] Nephrology, Bone & Mineral Metabolism [address], [address] [place] [address] Lashonda William, GAS MAIN FITTER HELPER 02/09/2025 [facility] Nephrology, Bone & Mineral Metabolism [address], [address] [place] [address] Lashonda William, GAS MAIN FITTER HELPER 02/02/2025 [facility] Nephrology, Bone & Mineral Metabolism [address], [address] [place] [address] Whitney Doan 02/02/2025 Travel 01/30/2025 Travel 12/30/2024 10:15 AM EDT Office Visit [facility] [address] [place] [address] Luis Olivares MD Diabetes mellitus type 2 without retinopathy ([facility]/HCC) (Primary Dx); Floppy lid syndrome; Pseudophakia of both eyes 12/30/2024 Travel 12/29/2024 11:04 AM EDT - 12/29/2024 11:59 PM EDT Hospital Encounter [facility] [address] [place] [address] Lumbar pain with radiation down both legs Discharge Disposition: Home or Self Care 12/29/2024 11:00 AM EDT Office Visit [facility] [address], [address] [place] [address] Deng Atkins, PA Lumbar pain with radiation down both legs (Primary Dx); Cervical pain (neck); Spondylosis of cervical region without myelopathy or radiculopathy; Chronic bilateral low back pain without sciatica; Dizziness 12/29/2024 10:24 AM EDT - 12/29/2024 11:03 AM EDT Hospital Encounter Medical Office [facility] Radiology [address] [place] [address] Cervical pain (neck) Discharge Disposition: Home or Self Care 12/29/2024 Travel 12/25/2024 Travel 12/22/2024 Travel from Last 3 Months Immunizations Immunization Administration Dates Next Due Influenza Vaccine, Quadrival ent, Adjuvanted 06/27/2021 Influenza, Unspecified 06/19/2016,2014,07/06/2014,2012,06/21/2012,06/27/2011 Influenza, high-dose, quadrivalent 06/04/2020,,09/17/2018 Influenza, injectable, quadr ivalent, preservative free 06/05/2017 Influenza, trivalent, adjuvanted 06/24/2019 Moderna COVID-19 Vaccine (Re d Cap) 12+ years 06/27/2021,11/01/2020,10/04/2020 Pneumococcal Conjugate PCV 13 05/27/2016 Zoster, live 04/23/2017 Family History 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 Relation Name Comments Alcohol abuse Father Dad Conversions - Other Father Dad Myocardi al Infarction Arrhythmias Heart attack Father Dad Heart disease Father Dad Hypertension Father Dad lung mass Father Dad Alzheimer's disease Mother Mom Conversions - Other Mother Mom Stroke O f The Left Anterior Cerebral Artery Diabetes Mother Mom Hypertension Mother Mom Stroke Mother Mom Relation Name Status Comments Father Dad Mother Mom Social History Tobacco Use Types Packs/Day Years [...] Sign Reading Time Taken Comments Blood Pressure 109/73 12/29/2024 10:43 AM EDT Pulse 56 12/29/2024 10:43 AM EDT Temperature 36.4 C (97.5 F) 02/08/2024 2:56 PM EDT Respiratory Rate 16 02/08/2024 2:56 PM EDT Oxygen Saturation 93% 12/29/2024 10:43 AM EDT Inhaled Oxygen Concentration - - Weight 106 kg (233 lb 11 oz) 12/29/2024 10:43 AM EDT Height 156.2 cm (5' 1.5 ) 12/15/2024 1:27 PM EDT Body Mass Index 43.44 12/15/2024 1:27 PM EDT Plan of Treatment Upcoming Encounters Date Type Department Care Team (Late st Contact Info) Description 01/26/2026 11:00 AM EDT Office Visit [facility] [address] [place] [address] Luis Olivares MD [address] [address] Health Maintenance Due Date Last Done Comments [facility]-Bone Density Scan 1950 [facility]-Infant/Child/Adol SDOH Screenings 1950 Diabetes: Dental Exam 1959 [facility]- SDOH Screenings 1967 [facility]-Adult SDOH Screenings 1967 [facility]-DTaP,Tdap,and Td Vaccines (1 - Tdap) 02/02/1968 [facility]-Hepatitis A Vaccines (1 of 2 - Risk 2-dose series) 02/02/1968 [facility]-Pneumococcal Vaccine: 50+ Years (2 of 2 - PPSV23) 07/22/2016 05/27/2016 [facility]-Medicare Annual Wellness (AWV) 02/24/2019 02/24/2018 [facility]-Diabetes: Hemoglobin A1C 05/22/2020 11/23/2019, 11/23/2019, 09/07/2019, Additional history exists ACC-OSGPO-80 Vaccine (4 - 2023- season) 2024 06/27/2021, 11/01/2020, 10/04/2020 [facility]-Zoster Vaccines (3 of 3) 06/14/2024 04/19/2024, 04/23/2017 [facility]-Influenza Vaccine (#1) 05/08/202507/19, 06/27/2021, 06/04/2020, Additional history exists [facility]-Depression Screening 08/08/2025 08/08/2024, 02/2023 [facility]-Hepatitis C Screening Completed 12/13/2019, [facility]-Breast Cancer Screening Discontinued 11/28/2021, 11/28/2021, 11/30/2018, Additional history exists [facility]-RSV Vaccine: 60+ Years or Completed 04/19/2024 [facility]-Obesity Intervention Completed 025, 12/29/2024, 12/15/2024, Additional history exists HPV Vaccines Aged Out No longer eligi ble based on patient's age to complete this topic [facility]-HIB Vaccines Aged Out No longer e ligible based on patient's age to complete this topic [facility]-IPV Vaccines Aged Out No longer e ligible based on patient's age to complete this topic [facility]-Rotavirus Vaccines Aged Out No lo nger eligible based on patient's age to complete this topic Procedures Procedure Name Priority Date/Time Associated Diagnosis Comments XR LUMBAR SPINE 2 OR 3 VIEWS Routine 12/29/2024 11:10 AM EDT Lumbar pain with radiation down both legs XR CERVICAL SPINE 2 OR 3 VIEWS Routine 12/29/2024 10:32 AM EDT Cervical pain (neck) HEPATITIS C ANTIBODY W/REFLEX TO HCV QUANT PCR Routine 12/13/2019 6:01 PM EDT HEMOGLOBIN A1C Routine 11/23/2019 2:45 PM EDT from Last 3 Months or Most Recently Relevant to Health Maintenance Results * QA MANAGER: L-Spine: XR Lumbar Spine 2 or 3 Views (AP/Lateral) (12/29/2024 11:10 AM EDT) Anatomical Region Laterality Modality Spine, L-spine Digital Radiogra phy Impressions 12/29/2024 1:18 PM EDT Severe degenerative disc changes at L5-S1 and moderate at L4-L5. CRITICAL RESULT: No. COMMUNICATION: Per this written report. Drafted by Fidel Powell MD on 12/29/2024 1:13 PM Final report signed by Fidel Powell MD on 12/29/2024 1:18 PM Narrative 12/29/2024 1:18 PM EDT CLINICAL INDICATION: BACK PAIN TECHNIQUE: XR LUMBAR SPINE 2 OR 3 VIEWS COMPARISON: CT dated December 13, 2019. FINDINGS: 2 views of the lumbar spine show disc space narrowing at L4-L5 and L5-S1 that is severe at L5-S1. Minimal anterior subluxation at L4-L5. Hypertrophic degenerative changes in the facets at L3-L4 through L5-S1. No fracture or bone destruction. Levoconvex curve with the apex at T12. Sequelae of embolization are appreciated in the inferior pole of the left kidney. Mild degenerative changes in the bilateral hip. Suture anchors in the bilateral pubic body. Procedure Note Fidel Powell MD - 12/29/2024 CLINICAL INDICATION: BACK PAIN TECHNIQUE: XR LUMBAR SPINE 2 OR 3 VIEWS COMPARISON: CT dated December 13, 2019. FINDINGS: 2 views of the lumbar spine show disc space narrowing at L4-L5 and L5-S1that is severe at L5-S1. Minimal anterior subluxation at L4-L5.Hypertrophic degenerative changes in the facets at L3-L4 through L5-S1. Nofracture or bone destruction. Levoconvex curve with the apex at T12.Sequelae of embolization are appreciated in the inferior pole of the leftkidney. Mild degenerative changes in the bilateral hip. Suture anchors inthe bilateral pubic body. IMPRESSION: Severe degenerative disc changes at L5-S1 and moderate at L4-L5. CRITICAL RESULT: No. COMMUNICATION: Per this written report. Drafted by Fidel Powell MD on 12/29/2024 1:13 PM Final report signed by Fidel Powell MD on 12/29/2024 1:18 PM us Deng GORDON IMG XR PROCEDURES Final Resul t * QA MANAGER: C-Spine: XR Cervical Spine (AP/Lateral/Odontoid) (12/29/2024 10:32 AM EDT) Anatomical Region Laterality Modality Spine, C-spine Digital Radiogra phy Impressions 12/29/2024 11:02 AM EDT Degenerative changes as above described. CRITICAL RESULT: No. COMMUNICATION: Per this written report. Drafted by Agus Fuchs MD on 12/29/2024 11:00 AM Final report signed by Agus Fuchs MD on 12/29/2024 11:02 AM Narrative 12/29/2024 11:02 AM EDT CLINICAL INDICATION: NECK PAIN TECHNIQUE: XR CERVICAL SPINE 2 OR 3 VIEWS COMPARISON: None. FINDINGS: Grossly anatomic alignment of the cervical spine. No significant disc space narrowing. There are small marginal osteophytes. Moderate to severe multilevel facet and uncovertebral hypertrophy, pronounced in the mid and lower cervical spine. Diffuse osteopenia. There are heterotopic ossifications over the projection of prevertebral space. No acute displaced fractures or dislocations. Procedure Note Agus Coppola MD - 12/29/2024 CLINICAL INDICATION: NECK PAIN TECHNIQUE: XR CERVICAL SPINE 2 OR 3 VIEWS COMPARISON: None. FINDINGS: Grossly anatomic alignment of the cervical spine. No significant discspace narrowing. There are small marginal osteophytes. Moderate to severemultilevel facet and uncovertebral hypertrophy, pronounced in the mid andlower cervical spine. Diffuse osteopenia. There are heterotopicossifications over the projection of prevertebral space. No acutedisplaced fractures or dislocations. IMPRESSION: Degenerative changes as above described. CRITICAL RESULT: No. COMMUNICATION: Per this written report. Drafted by Agus Fuchs MD on 12/29/2024 11:00 AM Final report signed by Agus Fuchs MD on 511:02 AM Deng GORDON IMG XR PROCEDURES Final Resul t * Hepatitis C Antibody (12/13/2019 6:01 PM EDT) Hepatitis C Antibody NEGATIVE Reference Range: Negative SUNQUEST 12/13/2019 6:01 PM EDT 12/13/2019 6:08 PM EDT Rupesh Sierra MD LAB BLOOD ORDERABLES Final Resu lt SUNQUEST * (ABNORMAL) Hemoglobin A1c (11/23/2019 2:45 PM EDT) Hemoglobin A1c 6.8(H) 4.7 - 6.0 % SUNQUEST Comment: Glycohemoglobin Reference Range, 0 years and up: 4.7 to 6.0% . HA1C Interpretive Data: Diagnosis of Diabetes: Diabetic > or = 6.5% Pre-diabetic 5.7 to 6.4% Non-diabetic < or = 5.6% . Glycemic Targets for Type I and Type II Diabetics: Non- Adults <7.0% Adults <6.0% Children and Adolescents <7.5% . Source: [place] [employer]. Standards of medical care in diabetes, 2017. Diabetes Care.2017:40 (suppl 1):S1-S135. . HbA1c assay performed by an ion-exchange chromatography method that is certified traceable to the DCCT. 11/23/2019 2:45 PM EDT 11/23/2019 2:59 PM EDT Deng Brumfield APRN LAB BLOOD ORDERABLES Fadia l Result SUNQUEST from Last 3 Months or Most Recently Relevant to Health Maintenance [place] [address] [employer] Care Teams Automatic Mold Sander Relationship Specialty Start Date End Date Heladio Palm MD [facility] [address] [place] [address] PCP - General Internal Medicine 05/02/22
--- OUTSIDE RECORDS SUMMARY | 2025-03-19 06:01 | XMS_ITS | Encounter Summary ---
Author Organization Healthcare Address [address] [place] [address] Care Team Providers Care Battery Checker Name Role Phone Heladio Palm MD Primary Care Provider + [phone] Encounter Details Date Type Department Care Team (Latest Contact Info) Description 02/02/2025 Travel Social History Tobacco Use Types Packs/Day [...] Description 01/26/2026 11:00 AM EDT Office Visit [facility] [address] [place] [address] Luis Olivares MD [address] [address] documented as of this encounter [...] documented as of this encounter Care Teams Battery Checker Relationship Specialty Start Date End Date Heladio Palm MD [address] [place] [address] PCP - General Internal Medicine 05/02/22 documented as of this encounter
--- OUTSIDE RECORDS SUMMARY | 2025-03-19 06:01 | XMS_ITS | Encounter Summary ---
Author Organization Healthcare Address [address] [place] [address] Care Team Providers Care Nematology Teacher Name Role Phone Heladio Palm MD Primary Care Provider + [phone] Encounter Details Date Type Department Care Team ([facility] Contact Info) Description 02/02/2025 Telephone [facility] Nephrology, Bone & Mineral Metabolism [address], [address] [place] [address] Whitney Doan Social History Tobacco Use Types Packs/Day Years [...] * Telephone Encounter - Whitney Doan - 02/02/2025 1:30 PM EDT Labs faxed to [facility] documented in this encounter Plan of Treatment Upcoming Encounters Date Type Department Care Team (Late st Contact Info) Description 01/26/2026 11:00 AM EDT Office Visit [facility] [address] [place] [address] Luis Olivares MD [address] [place] [address] documented as of this encounter [...] documented as of this encounter Care Teams Nematology Teacher Relationship Specialty Start Date End Date Heladio Palm MD [address] [place] [address] PCP - General Internal Medicine 05/02/22 documented as of this encounter
--- OUTSIDE RECORDS SUMMARY | 2025-03-19 06:01 | XMS_ITS | Encounter Summary ---
Author Organization Healthcare Address [address] [place] [address] Care Team Providers Care Blanket Washer Name Role Phone Heladio Palm MD Primary Care Provider + [phone] Reason for Visit * Reason Comments Med Refill Encounter Details Date Type Department Care Team (Late st Contact Info) Description 05/05/2024 Refill [facility] [place] [address] [place] [address] Willow Fry PA [address] [place] [address] Coronary artery disease involving [place] coronary artery of [place] heart without angina pectoris Social History Tobacco [...] Notes * Telephone Encounter - Sammie Tyson 05/06/2024 7:49 AM EDT Pt needs an appt documented in this encounter Plan of Treatment Upcoming Encounters Date Type Department Care Team (Late st Contact Info) Description 01/26/2026 11:00 AM EDT Office Visit [facility] [address] [place] [address] Luis Olivares MD [address] [facility] [address] [place] [address] documented as of this encounter Visit Diagnoses Diagnosis Coronary artery disease involving [place] coronary artery of [place] heart without angina pectoris documented in this encounter Additional Health Concerns Assessment Noted Time PHQ-9 Depression Total Score: 12 023 12:53 PM EDT A fall risk assessment has been complete d for the patient 02/08/2024 3:04 PM EDT A Body Mass Index follow-up plan has been documented for the patient 03/30/2024 2:46 PM EDT documented as of this encounter Care Teams Blanket Washer Relationship Specialty Start Date End Date Heladio Palm MD [address] [place] [address] PCP - General Internal Medicine 05/02/22 documented as of this encounter
--- OUTSIDE RECORDS SUMMARY | 2025-03-19 06:01 | XMS_ITS | Encounter Summary ---
Author Organization Healthcare Address [address] [place] [address] Care Team Providers Care Video Games Mechanic Name Role Phone Heladio Palm MD Primary Care Provider + [phone] Encounter Details Date Type Department Care Team (Latest Contact Info) Description 03/12/2025 Travel Social History Tobacco Use Types Packs/Day [...] Description 01/26/2026 11:00 AM EDT Office Visit [facility] [address] [place] [address] Luis Olivares MD [address] [address] documented as of this encounter [...] as of this encounter Care Teams Video Games Mechanic Relationship Specialty Start Date End Date Heladio Palm MD [address] [place] [address] PCP - General Internal Medicine 05/02/22 documented as of this encounter
--- OUTSIDE RECORDS SUMMARY | 2025-03-19 06:01 | XMS_ITS | Encounter Summary ---
Author Organization Healthcare Address [address] [place] [address] Care Team Providers Care Mouthpiece Maker Name Role Phone Heladio Palm MD Primary Care Provider + [phone] Encounter Details Date Type Department Care Team (Late Contact Info) Description 11/03/2024 Orders Only External Location [address] [place] [address] Provider, External Social History Tobacco Use Types Packs/Day Years [...] Department Care Team (Late Contact Info) Description 01/26/2026 11:00 AM EDT Office Visit [facility] [address] [place] [address] Luis Olivares MD [address] [address] documented as of this encounter Procedures Procedure Name Priority Date/Time Associated Diagnosis Comments MR MSK OUTSIDE IMAGES 11/03/2024 2:21 PM EST documented in this encounter Results * MR MSK OUTSIDE IMAGES (11/03/2024 2:21 PM EST) Anatomical Region Laterality Modality Magnetic Resonan ce 11/03/2024 2:21 PM EST us External Provider IMG MRI PROCEDURES Final Resul t documented in this encounter Visit Diagnoses Not on filedocumented in this encounter Additional Health Concerns Assessment Noted Time PHQ-9 Depression Total Score: 12 023 12:53 PM EDT A fall risk assessment has been complete d for the patient 08/08/2024 12:49 PM EST A Body Mass Index follow-up plan has been documented for the patient 08/18/2024 8:26 PM EST documented as of this encounter Care Teams Mouthpiece Maker Relationship Specialty Start Date End Date Heladio Palm MD [address] [place] [address] PCP - General Internal Medicine 05/02/22 documented as of this encounter
--- OUTSIDE RECORDS SUMMARY | 2025-03-19 06:02 | XMS_ITS | Patient Health Record ---
Author Organization [facility] Address [address] [place] [address] Care Team Providers Care Stiff Leg Operator Name Role Phone Heladio Palm Primary Care [...] Reference Range Notes THYROID PANEL WITH TSH (7444 ) Reviewed date:03/14/2025 04:29:00 PM Interpretation: Performing Lab:[facility].come[address], CliqHptbTX[address] Brady Brown Notes/Report: NON-FASTING; NON-FASTING; NON-FASTING; NON-FASTING; NON-FAST FASTING:YES FASTING: YES T3 UPTAKE 31 22-35 % T4 (THYROXINE), TOTAL 7.8 5.1-11.9 mcg/dL FREE T4 INDEX (T7) 2.4 1.4-3.8 TSH 1.65 0.40-4.50 mIU/L LIPID PANEL, STANDARD (7600) Reviewed date:03/14/2025 04:29:00 PM Interpretation: Performing Lab:[facility].come13[address] CliqYhstRD[address] Brady Brown Notes/Report: NON-FASTING; NON-FASTING; NON-FASTING; NON-FASTING; [...] LDL-C. Aryan SS et al. CHRISTINA. 2013;310(19): 1378-4267 (http://education.Xcell Medical/faq/FAQ 164) CHOL/HDLC RATIO 4.2 <5.0 (calc) NON HDL CHOLESTEROL 123 <130 mg/dL (calc) For patients with diabetes plus 1 major ASCVD risk factor, treating to a non-HDL-C goal of <100 mg/dL (LDL-C of <70 mg/dL) is considered a therapeutic option. COMPREHENSIVE METABOLIC BRENDAN Quigley (39590) Reviewed date:03/14/2025 04:29:00 PM Interpretation: Performing Lab:CB, [facility]-Joaquín Jonese[address] [facility] [place]arez[address] Brady Brown Notes/Report: NON-FASTING; NON-FASTING; NON-FASTING; NON-FASTING; [...] 9) Reviewed date:03/14/2025 04:29:01 PM Interpretation: Performing Lab:[facility] [address], [place] VlquYI[address] Brady Brown Notes/Report: NON-FASTING; NON-FASTING; NON-FASTING; NON-FASTING; NON-FAST FASTING:YES FASTING: YES WHITE BLOOD CELL COUNT 10.0 3.8-10.8 Thousand/uL RED BLOOD CELL COUNT 4.65 3.80-5.10 Million/uL [...] MPV 9.5 7.5-12.5 fL ABSOLUTE NEUTROPHILS 6720 8215-5828 cells/uL ABSOLUTE LYMPHOCYTES 2100 850-3900 cells/uL ABSOLUTE MONOCYTES 660 200-950 cells/uL ABSOLUTE EOSINOPHILS 460 15-500 cells/uL ABSOLUTE BASOPHILS 60 0-200 cells/uL NEUTROPHILS 67.2 LYMPHOCYTES 21.0 MONOCYTES 6.6 EOSINOPHILS 4.6 BASOPHILS 0.6 HEMOGLOBIN A1c (496) Reviewed date:03/14/2025 04:29:01 PM Interpretation: Performing Lab:[facility] [address], [place]im[place].comUgywDS[address] Brady Brown Notes/Report: NON-FASTING; NON-FASTING; NON-FASTING; NON-FASTING; [...] for children. VITAMIN B12/FOLATE, SERUM PA REGIS (9066) Reviewed date:03/14/2025 04:29:01 PM Interpretation: Performing Lab:[facility]come[address] [facility], Climber.comUtvpIH[address] Brady Brown Notes/Report: NON-FASTING; NON-FASTING; NON-FASTING; NON-FASTING; NON-FAST FASTING:YES FASTING: YES VITAMIN B12 289 802-8925 pg/mL Please Note: Although the reference range [...] Borderline: 3.4-5.4 Normal: >5.4 VITAMIN D,25-OH,TOTAL,IA (17 306) Reviewed date:03/14/2025 04:29:01 PM Interpretation: Performing Lab:[facility] [address], [place].comJsxdDL[address] Brady Brown Notes/Report: NON-FASTING; NON-FASTING; NON-FASTING; NON-FASTING; [...] D, (D2,D3), LC/MS/MS is recommended: order code 10775 (patients >2yrs). See Note 1 Note 1 For additional information, please refer to http://education.Neuravi/faq/FAQ1 99 (This link is being provided for informational/ educational purposes only.) PTH, INTACT WITHOUT CALCIUM (36905) Reviewed date:03/14/2025 04:29:01 PM Interpretation: Performing Lab:[facility] [address], [place] JonesTfttMW[address] Brady Brown Notes/Report: NON-FASTING PARATHYROID HORMONE, INTACT 54 16-77 pg/mL Interpretive Guide Intact PTH Calcium ------- Normal Parathyroid Normal Normal Hypoparathyroidism Low or Low Normal Low Hyperparathyroidism Primary Normal or High High Secondary High Normal or Low Tertiary High High Non-Parathyroid Hypercalcemia Low or Low Normal High M-1,25-Dihydroxy,Vitamin D b y MS Reviewed date:02/07/2025 07:26:01 PM Interpretation: Performing Lab: Notes/Report: [id number] 26 . pg/mL Reference Range: Adults: 21 - 65 [id number] <10 . pg/mL This test was developed and its performance characteristics determined by [facility]. It has not been cleared or approved by the Food and Drug Administration. [id number] 24 . pg/mL This test was developed and its performance characteristics determined by [facility]. It has not been cleared or approved by the Food and Drug Administration. Performed at: [facility] [address] [place] [id number] Cardiology Consultant: Jerson Cameron MD, Phone: [phone] H-MALBCREA Reviewed date:02/04/2025 10:26:08 AM Interpretation: Performing Lab: Notes/Report: Units: mg/g creat Normal: 0 - 29 Moderately Increased: 30 - 300 Severely Increased: >300 UCREAT 76 Not Estab. mg/dL Random urine reference range not established. 24 hour urine samples recommended. MICROALB 6.500 0-16.7 mg/L MALBCREAT 8.5 H-IPTH Reviewed date:02/04/2025 10:26:08 AM Interpretation: Performing Lab: Notes/Report: PTHINT 5.7 7.5-53.5 pg/mL M-Urine Culture Reviewed date:02/08/2025 01:59:16 PM Interpretation: Performing Lab: Notes/Report: CUU ORGANISM 1: Escherichia coli RX CA: R- Resistant S- Susceptible I- Intermediate * [facility] [place] Count 50,000 - 60,000 RX CA: R- Resistant S- Susceptible I- Intermediate * Not on [facility] CUU RX CA: R- Resistant S- Susceptible I- Intermediate * Not on [facility] CUU RX CA: R- Resistant S- Susceptible I- Intermediate * [facility] Escherichia coli: REACTION RX CA: R- Resistant S- Susceptible I- Intermediate * [facility] Amikacin <=8 S RX CA: R- Resistant S- Susceptible I- Intermediate * [facility] Ampicillin >16 R RX CA: R- Resistant S- Susceptible I- Intermediate * [facility] Aztreonam <=2 S RX CA: R- Resistant S- Susceptible I- Intermediate * [facility] Cefepime <=1 S RX CA: R- Resistant S- Susceptible I- Intermediate * [facility] Ceftazidime <=2 S RX CA: R- Resistant S- Susceptible I- Intermediate * [facility] Ceftriaxone 4 R RX CA: R- Resistant S- Susceptible I- Intermediate * [facility] Ciprofloxacin <=0.25 S RX CA: R- Resistant S- Susceptible I- Intermediate * [facility] Ertapenem <=0.25 S RX CA: R- Resistant S- Susceptible I- Intermediate * [facility] Gentamicin <=2 S RX CA: R- Resistant S- Susceptible I- Intermediate * [facility] Levofloxacin <=0.5 S RX CA: R- Resistant S- Susceptible I- Intermediate * [facility] Meropenem <=0.5 S RX CA: R- Resistant S- Susceptible I- Intermediate * Not on [facility] CUU Nitrofurantoin <=16 S RX CA: R- Resistant S- Susceptible I- Intermediate * [facility] Tetracycline <=2 S RX CA: R- Resistant S- Susceptible I- Intermediate * [facility] Tobramycin <=2 S RX CA: R- Resistant S- Susceptible I- Intermediate * [facility] Trimethoprim/Sulfame th oxazole >38 R RX CA: R- Resistant S- Susceptible I- Intermediate * [facility] Piperacillin/Tazobac ta m <=2/4 S RX CA: R- Resistant S- Susceptible I- Intermediate * [facility] RX CA: R- Resistant S- Susceptible I- Intermediate * Not on [facility] M-Renal Function Panel Reviewed date:02/04/2025 10:26:09 AM Interpretation: Performing Lab: Notes/Report: BUN 28 7-17 mg/dl CREATT 1.10 0.52-1.04 mg/dl GFRAA 58 >60 ML/MIN EGFR 48 >60 ml/min GLU 143 74-100 mg/dl CA 9.9 8.4-10.2 mg/dl PHOS 3.7 2.5-4.5 mg/dl ALB 4.1 3.5-5.0 g/dl NA 137 136-145 mmol/L K 4.3 3.5-5.1 mmoL/L CL 102 98-107 mmol/L CO2 27 22.0-30.0 mmol/L GAP 12.3 5-15 mEq/L M-Total Protein,Urine Random Reviewed date:02/04/2025 10:26:08 AM Interpretation: Performing Lab: Notes/Report: UTP 9.0 0.0-12.0 mg/dL M-Urinalysis and Microscopic Reviewed date:02/04/2025 10:26:08 AM Interpretation: Performing Lab: Notes/Report: UCOL YELLOW Yellow UAPP SL CLOUDY Clear UPH 6.0 5.0-8.5 USG 1.015 1.005-1.030 UPRO Negative Negative UGLU 3+ Negative UKET Negative Negative UBLD Negative Negative UNIT Negative Negative UBIL Negative Negative UURO 0.2 0.2 EU/dl ULEU 1+ Negative UMICU URINE MICROSCOPIC MICROSCOPIC URBC 10-20 0-3 #/hpf UWBC 20-50 0-3 #/hpf USQEPI 10-20 0-5 #/hpf UBACT 4+ NONE /lpf M-Complete Blood Count w/o D iff Reviewed date:02/04/2025 10:26:08 AM Interpretation: Performing Lab: Notes/Report: WBC 9.6 4.8-10.8 K/mm3 RBC 4.79 4.20-5.40 M/mm3 HGB 14.2 12.2-16.2 g/dL HCT 44.4 37.0-47.0 % MCV 92.7 81-99 fl MCH 29.6 27.0-31.2 pg MCHC 32.0 31.8-35.4 g/dL RDW 13.0 11.5-17.5 % PLT 242 142-424 K/mm3 RDW-SD 44.4 NRBC% 0 NRBC# 0 MRI : Head, Without Contrast Reviewed date:12/06/2024 12:21:22 PM Interpretation: Performing Lab: Notes/Report: BASIC METABOLIC PANEL (67160 ) Reviewed date:04/22/2024 10:23:59 AM Interpretation: Performing Lab:[facility] Jonese13[address] [facility] AdoiLD[address] Brady Brown Notes/Report: NON-FASTING; NON-FASTING GLUCOSE 159 [...] 27 20-32 mmol/L CALCIUM 9.6 8.6-10.4 mg/dL HEMOGLOBIN A1c (496) Reviewed date:04/22/2024 10:23:59 AM Interpretation: Performing Lab:LV Tosk Lvrz0354 [facility], Joaquín NtqqVU[address] Brady Brown Notes/Report: NON-FASTING; NON-FASTING HEMOGLOBIN A1c [...] change in test platforms from the Baker [employer] to the Bela jose c503 may have shifted HbA1c results compared to historical results. Based on laboratory validation testing conducted at [facility], the Bela platform relative to the Baker platform had an average increase in HbA1c value of < or = 0.3%. This difference is within accepted variability established by the National Glycohemoglobin Standardization Program. Note that not all individuals will have had a shift in their results and direct comparisons between historical and current results for testing conducted on different platforms is not recommended. CAROTID DUPLEX Reviewed date:12/06/2024 12:21:22 PM Interpretation: Performing Lab: Notes/Report: Reason For Referral Reason Needs MRI of brain, no contrast and carotid Doppler at [facility] for morning headaches with visual disturbance Diagnosis 1 Nonintractable episo dic headache, unspecified headache type (R51.9) Referral Organization [facility] Referring Provider First Name Heladio Referring Provider Last Name Arpita Referring Provider Speciality Internal edicine General Notes Carmen Harvey 07/2025 04:02:30 PM > faxed to [facility] and they will call her Referral Priority Routine Reason Labral tear, loose b silas in shoulder joint and multiple rotator cuff tears, see Dr. Ace Royal at Diagnosis 1 Traumatic tear of ri ght rotator cuff, unspecified tear extent, initial encounter (S46.011A) Referral Organization [facility] Referring Provider First Name Heladio Referring Provider Last Name Arpita Referring Provider Speciality Internal edicine General Notes Carmen Harvey 08/2025 02:53:47 PM > faxed and they will call her to schedule Referral Priority Routine Reason DExa scan at [facility] Diagnosis 1 Chronic kidney disea se, stage 3b (N18.32) Referral Organization [facility] Referring Provider First Name Heladio Referring Provider Last Name Arpita Referring Provider Speciality Internal M edicine Referred Organization [facility] Referred Address [address] [facility] [address], [place],[address], Referred Provider Specialty Diagnostic R adiology Referral Priority Routine Medications Medication SIG (Take, Route, Frequency, Duration) Notes Start Date End Date Status PEN NEEDLE 6MM 31G - ONCE A DAY; Duration: 30 DAY(S) *Please review for potential replacement for e-prescription and drug interaction check* 02/13/2020 Active Vitamin C 500 MG 1 tab(s) orally once a day; Duration: 30 day(s) Active Vitamin D3 50 MCG (2000 UT) as directed orally once a day; Duration: 30 day(s) Active Carvedilol 25 MG 1 tab(s) orally 2 times a day; Duration: 90 days Active Acetaminophen 500 MG 2 tab(s) orally every 6 hours prn Active Clopidogrel Bisulfate 75 MG 1 tab(s) orally once a day; Duration: 90 days 10/04/2024 Active Magnesium Oxide 400 MG 2tabs orally once a day; Duration: 30 days Active Venlafaxine HCl 100 MG 1 tab(s) orally once a day; Duration: 30 days Active amLODIPine Besylate 2.5 MG 1 tab(s) orally once a day Active Pantoprazole Sodium 40 MG 1 tab(s) orally once a day; Duration: 90 days Active Biotin 1000 MCG 1 tab(s) orally once a day Active Atorvastatin Calcium 40 MG 1 tab(s) orally once a day; Duration: 90 days Active Zinc 50 MG 1 tab(s) orally once a day; Duration: 30 day(s) Active Losartan Potassium 50 MG TAKE 1 TABLET BY MOUTH ONCE DAILY; Duration: 90 Active Farxiga 10 MG TAKE 1 TABLET BY MOUTH ONCE DAILY; Duration: 90 Active CONSERVING DEVICE DIRECTED DIRECTED *Please review for potential replacement for e-prescription and drug interaction check* 03/22/2020 Active metFORMIN HCl ER 750 MG 1 tab(s) orally once a day; Duration: 90 days 07/19/2024 Active Levothyroxine Sodium 100 MCG 1 tab(s) orally once a day; Duration: 90 days Active Triamterene-HCTZ 37.5-25 MG TAKE 1 CAPSULE BY MOUTH ONCE DAILY; Duration: 90 Active Immunizations Vaccine Route Administration Date Status Comme nts SHINGRIX IM Intramuscular 01/26/2024 Administered SHINGRIX IM Intramuscular 04/19/2024 Administered Prevnar PCV-20 (Pneumococcal conjugate 20) IM Intramuscular 01/26/2024 Administered Fluzone High Dose IM Intramuscular 06/04/2020 Administered Given by [facility] Fluzone High Dose IM Intramuscular 07/03/2022 Administered Fluzone High Dose IM Intramuscular 07/19/2024 Administered Boostrix IM Intramuscular 03/02/2025 Administered Arexvy IM Intramuscular 04/19/2024 Administered Social History Tobacco Use: Social History Observation Description Date Details (start date - stop date) Former Smoker NA - NA Smoking: Question Answer Notes Are you a: former smoker How long has it been since you last smoked? > 10 years Problems Problem Type SNOMED Code ICD Code Onset Dates Problem Status W/U Status Risk Notes Problem Diabetic renal disease (528897678) Type 2 diabetes mellitus with diabetic chronic kidney disease (E11.22) Active confirmed Problem Paroxysmal atrial fibrillation (086999219) Paroxysmal atrial fibrillation (I48.0) Active confirmed Problem Hypothyroid (21949285) Hypothyroid (E03.9) Active confirmed Problem Atrial fibrillation (disorder) (45678604) Afib (I48.91) Active confirmed Problem Morbid obesity (325628689) Morbid obesity (E66.01) Active confirmed Problem Neuropathy (604304512) Neuropathy (G62.9) Active confirmed Problem Essential hypertension (80889735) Essential hypertension (I10) Active confirmed Problem Type 2 diabetes mellitus (63647552) Type 2 diabetes mellitus (E11.9) Active confirmed Problem Atherosclerosis of coronary artery without angina pectoris (130031586942091) Atherosclerosis of [place] coronary artery of [place] heart without angina pectoris (I25.10) Active confirmed Problem Obstructive sleep apnea (74983200) Obstructive sleep apnea (G47.33) Active confirmed Problem Uncomplicated moderate persistent asthma (296035451) Moderate persistent asthma without complication (J45.40) Active confirmed Problem Acute depression (078388328) Acute depression (F32.9) Active confirmed Problem Chronic renal failure syndrome (16257130) Chronic kidney disease, unspecified CKD stage (N18.9) Active confirmed Problem Chronic hypercapnic respiratory failure (047398581) Hypercapnic respiratory failure, chronic (J96.12) Active confirmed Problem Chronic kidney disease stage 3B (disorder) (470625306) Chronic kidney disease, stage 3b (N18.32) Active confirmed Vital Signs Heart Rate 78 /min 03/02/2025 Temperature 97.9 degrees Fahrenheit 03/02/2025 Blood pressure diastolic 68 mm Hg 03/02/2025 Height 5 ft 3 in in 03/02/2025 Blood pressure systolic 122 mm Hg 03/02/2025 Weight 236 lbs 03/02/2025 BMI 41.8 kg/m2 03/02/2025 Encounters Encounter Location Date Provider Diagnosis [facility] [address] [facility] [address] [place] [address] 12/10/2024 Provider Migration [address] [address] 04/19/2024 Heladio Palm Sensation of fullnes s in left ear H93.8X2 ; Chronic kidney disease, unspecified CKD stage N18.9 ; Type 2 diabetes mellitus E11.9 ; Essential hypertension I10 ; Paroxysmal atrial fibrillation I48.0 and Encounter for immunization Z23 [address] [address] 07/19/2024 Heladio Palm Type 2 diabetes mellitus with diabetic chronic kidney disease E11.22 ; Chronic kidney disease, stage 3b N18.32 ; Immunization(s) administered Z23 ; Paroxysmal atrial fibrillation I48.0 and Essential hypertension I10 [address] [address] 11/15/2024 Heladio Palm Nonintractable episo dic headache, unspecified headache type R51.9 and Traumatic tear of right rotator cuff, unspecified tear extent, initial encounter S46.011A [address] [address] 03/02/2025 Heladio Palm Chronic kidney disea se, stage 3b N18.32 ; Type 2 diabetes mellitus with diabetic chronic kidney disease E11.22 ; Paroxysmal atrial fibrillation I48.0 ; Atherosclerosis of [place] coronary artery of [place] heart without angina pectoris I25.10 ; Hypothyroid E03.9 ; Obstructive sleep apnea G47.33 ; Encounter for immunization Z23 and Routine medical exam Z00.00 [facility] [address] [place], [place] [address] 05/06/2024 Heladio Besson [facility] [address] [place], [place] [address] 05/30/2024 Heladio Besson [facility] [place] [address] [address] 09/22/2024 Heladio Besson Type 2 diabetes mellitus with diabetic chronic kidney disease E11.22 [facility] [place] [address] [address] 10/04/2024 Heladio Besson [facility] [place] [address] [address] 12/09/2024 Heladio Besson [facility] [place] [address] [address] 02/08/2025 Heladio Besson Assessments Encounter Date Diagnosis (ICD Code) Assessment Notes Treatment Notes Treatment Clinical Notes Section Notes 07/19/2024 Chronic kidney disease, stage 3b (ICD-10 - N18.32) Continues to follow with nephrology and will see them next month. Continue [facility]. 09/22/2024 Type 2 diabetes mellitus with diabetic chronic kidney disease (ICD-10 - E11.22) 11/15/2024 Nonintractable episodic headache, unspecified headache type (ICD-10 - R51.9) Alarm features present including waking up from sleep, positional. Occuring about 5/7 nights per week. Also dizziness with neck extension. Will get MRI brain as well carotid duplex bilaterally to evaluate for secondary causes of headache. 11/15/2024 Traumatic tear of right rotator cuff, unspecified tear extent, initial encounter (ICD-10 - S46.011A) MRI with labrum tear, rotator cuff tear, OA. Likely occured when she was around 11 years old when she had a fall. Will refer to orthopedic surgery. 03/02/2025 Type 2 diabetes mellitus with diabetic chronic kidney disease (ICD-10 - E11.22) Check A1c. On appropriate medications z 04/19/2024 Chronic kidney disease, unspecified CKD stage [...] continue to run 130-140s. Start Metformin nightly. 03/02/2025 Chronic kidney disease, stage 3b (ICD-10 - N18.32) Overall doing well, follows with [facility] neph[facility]. Check metabolic labs as noted. Please note all reviewed personally. Had microalbumin test done in January. Will check DEXA scan given history of chronic kidney disease z 04/19/2024 Type 2 diabetes mellitus (ICD-10 - E11.9) -A1c 7.8% 01/2024 -On Farxiga 10 mg only -Having elevated fasting blood sugars in 140-150s, with sugars getting as high as 250s during the day (post prandial) -Will recheck A1c today 07/19/2024 Immunization(s) administered (ICD-10 - Z23) 03/02/2025 Paroxysmal atrial fibrillation (ICD-10 - I48.0) No evidence of recurrence. z 04/19/2024 Essential hypertension (ICD-10 - I10) -Well controlled -No changes to mediations 03/02/2025 Atherosclerosis of [place] coronary artery of [place] heart without angina pectoris (ICD-10 - I25.10) No current cardiac symptoms z 07/19/2024 Paroxysmal atrial fibrillation (ICD-10 - I48.0) Follows with cardiology, still considering Watchman device. Continue Carvedilol. 07/19/2024 Essential hypertension (ICD-10 - I10) Well controlled, continue current regimen. 03/02/2025 Hypothyroid (ICD-10 - E03.9) Clinically euthyroid z 04/19/2024 Paroxysmal atrial fibrillation (ICD-10 - I48.0) -Follows with [facility] cardiology and cardiology -On coreg. Not on DOAC due to previous renal artery bleeding. -Being considered for Watchmen device by [facility], she will discuss with Dr. Cedeño 04/19/2024 Encounter for immunization (ICD-10 - Z23) -Shingrix #2, RSV given today 03/02/2025 Obstructive sleep apnea (ICD-10 - G47.33) [...] Depression screening negative z Plan Of Treatment Pending Test Test Name Order Date DEXA Hip and Spine - Screening 5 Microalbumin (In-House) 03/02/2025 Physical Therapy 05/01/2022 Mammogram : Bilateral 04/22/2021 [...] PANEL, STANDARD (7600) 11/18/2023 COMPREHENSIVE METABOLIC PANEL (24083) BASIC METABOLIC PANEL (45235) 01/29/2024 CBC (INCLUDES DIFF/PLT) (6399) 03/13/202 4 HEMOGLOBIN A1c (496) 11/18/2023 TSH (899) 11/18/2023 Next Appt Details Provider Name:Heladio Palm, 05/25/2025 09:30:00 AM, [address] [facility] [address], [place], [address], Insurance Providers Payer Name Payer Address Payer Phone Subscriber Number Group Number Insured Name Patient Relationship to Insured Coverage Start Date Coverage End Date MEDICARE PART [place] [address] [place] [phone] [id number] Kiana mac Mirtha Self - patient is the insured [employer] [address] [address] [place] [address] [id number] Kiana maciMrtha Self - patient is the insured Medical (General) History 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 History ICD Code Afib Basal cell HTN HLD COPD Left renal artery rupture- ablation done [facility] Diabetes Colonoscopy 05/29 with two sessile polyps 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
[2025-03-19 06:03] VITALS: BP 194/84; PULSE 80; RESP 18; TEMP 36.6; O2SAT 92; BMI 44.0
[2025-03-19] MEDS: CLINDAMYCIN 150MG CAPSULE 450 MG PO (06:27)
--- NOTE | 2025-03-19 06:27 | HMH.EDGENADL ---
Discharge Plan Disposition Patient Disposition: Home, Self-Care Condition: Fair Prescriptions Prescriptions: New hydrocodone-acetaminophen 5-325 mg tablet 1 tab PO Q8H PRN (Reason: pain (scale score 7-10)) Qty: 8 0RF clindamycin HCl [Cleocin HCl] 150 mg capsule 450 mg PO TID 7 Days Qty: 63 0RF No Action losartan 50 mg tablet 50 mg PO DAILY atorvastatin 40 mg tablet 40 mg PO HS levothyroxine 100 mcg tablet 100 mcg PO DAILY Patient Comments: TAKE 1 TABLET BY MOUTH EVERY DAY venlafaxine 100 mg tablet 100 mg PO BID ascorbate calcium (vitamin C) 500 mg tablet 500 mg PO DAILY zinc Tablet,Chewable PO cholecalciferol (vitamin D3) 50 mcg (2,000 unit) capsule 50 mcg PO DAILY triamterene-hydrochlorothiazid [Maxzide-25mg] 37.5-25 mg tablet 1 tab PO DAILY Qty: 30 5RF diltiazem HCl 240 mg capsule,extended release 24 hr 240 mg PO BID Qty: 60 4RF clopidogrel [Plavix] 75 mg tablet 75 mg PO DAILY Qty: 30 5RF pantoprazole [Protonix] 40 mg tablet,delayed release (DR/EC) 40 mg PO DAILY Qty: 30 5RF carvedilol 25 mg tablet 25 mg PO BID Patient Comments: TAKE 1 TABLET BY MOUTH TWICE A DAY dapagliflozin propanediol [Farxiga] 10 mg tablet 10 mg PO DAILY Patient Comments: TAKE 1 TABLET BY MOUTH EVERY DAY magnesium aspart,citrate,oxide 400 mg magnesium capsule 800 mg PO DAILY aspirin [Adult Low Dose Aspirin] 81 mg tablet,delayed release (DR/EC) 81 mg PO DAILY Qty: 30 5RF amlodipine [Norvasc] 2.5 mg tablet 2.5 mg PO DAILY Qty: 90 3RF Referrals Follow up/Referrals: Heladio Palm MD [Primary Care Provider, Internal Medicine] - See instructions Activity Restrictions/Add. Instructions Additional Instructions/Restrictions: Your evaluated in the ER and are believed to be appropriate for discharge at this time. Take the prescribed clindamycin antibiotic as directed, do not skip doses, do not stop taking it early. I recommend taking a probiotic with this antibiotic to avoid any gastrointestinal side effects. Take the prescribed hydrocodone?acetaminophen if needed for severe pain, only take this medication as directed. Do not drive or operate machinery after taking it since it can cause you to be sleepy and cloud your judgment. This can also cause constipation and addiction/dependence so only take it as directed. Also be aware that this medication contains acetaminophen (Tylenol) so be mindful of this when taking Tylenol during the day and calculating your max dose. Use the provided dental balls as needed. You can leave them on for 1 hour, then remove for 1 hour. Do not eat, drink, or sleep with these in place to avoid choking. Follow-up first thing tomorrow with a dentist. The information for the dental walk-in clinic is provided below. They see patients from 7:45 AM to 10:30 AM on a first come, first served basis Thursday through Thursday. dental walk-in clinic: [address] [place] [id number] Return to the ER immediately with any new, worsening, or otherwise concerning symptoms including but not limited to difficulty opening your jaw, swelling, redness, or pain under the jaw, elevation of the tongue, difficulty swallowing or breathing, fevers, or findings of cellulitis under the jaw as discussed. Clinical Impressions Clinical Impression: Pain, dental, Gingivitis Print Language Print Language: Czech Discharge ED Provider: Ariella Diallo General Adult HPI General Chief complaint: Dental/Oral Stated complaint: infection in jaw, pain Time Seen by Provider: 03/19/25 06:02 Mode of Arrival: Ambulatory Source of Information: Patient Description of Symptoms (Recalled from ER Triage Doc. by RN): pt presents to the Ed d/t complaints of dental pain starting late thursday near lower left jaw. pt has swelling present. pt reports not taking morning BP meds. History of Present Illness HPI narrative: 75-year-old female with history of CAD, hypertension, hyperlipidemia presents to the ER for complaints of left jaw dental pain. Patient has mild swelling. She states she has been taking Tylenol for her pain since she is not allowed to take ibuprofen due to poor kidney function. She states she was able to tolerate the pain yesterday but today it is worse. She reports she cannot wait until tomorrow, Thursday, to see her dentist. She is concerned for developing infection. She is not having fevers, no difficulty opening her jaw, she states she has pain in the left lower molars when she clenches her jaw all the way closed. She states she has a bridge in this area and thinks she may have gotten something under it. No difficulty breathing or swallowing, no redness under the jaw. She states she does not otherwise feel ill. No other complaints or concerns. Related Data Home Medications ?Medication ?Instructions ?Recorded ?Confirmed ascorbate calcium (vitamin C) 500 500 mg PO DAILY 05/22/22 10/11/24 mg tablet atorvastatin 40 mg tablet 40 mg PO HS 05/22/22 10/11/24 cholecalciferol (vitamin D3) 50 50 mcg PO DAILY 05/22/22 10/11/24 mcg (2,000 unit) capsule levothyroxine 100 mcg tablet 100 mcg PO DAILY 05/22/22 10/11/24 losartan 50 mg tablet 50 mg PO DAILY 05/22/22 10/11/24 venlafaxine 100 mg tablet 100 mg PO BID 05/22/22 10/11/24 zinc tab PO 05/22/22 10/11/24 carvedilol 25 mg tablet 25 mg PO BID 03/03/24 10/11/24 dapagliflozin propanediol 10 mg 10 mg PO DAILY 03/03/24 10/11/24 tablet (Farxiga) magnesium aspart,citrate,oxide 800 mg PO DAILY 03/03/24 10/11/24 Previous Rx's ?Medication ?Instructions ?Recorded triamterene 37.5 1 tab PO DAILY #30 tabs 05/22/22 mg-hydrochlorothiazide 25 mg tablet (Maxzide-25mg) clopidogrel 75 mg tablet (Plavix) 75 mg PO DAILY #30 tabs 07/01/22 diltiazem HCl 240 mg capsule,24 240 mg PO BID #60 caps 07/01/22 hr,extended release pantoprazole 40 mg tablet,delayed 40 mg PO DAILY #30 tabs 07/01/22 release (Protonix) aspirin 81 mg tablet,delayed 81 mg PO DAILY #30 tabs 09/19/24 release (Adult Low Dose Aspirin) amlodipine 2.5 mg tablet (Norvasc) 2.5 mg PO DAILY #90 tabs 12/23/24 clindamycin HCl 150 mg capsule 450 mg (3 x 150 mg) PO TID 7 days 03/19/25 (Cleocin HCl) #63 caps hydrocodone 5 mg-acetaminophen 325 1 tab PO Q8H PRN pain (scale score 03/19/25 mg tablet 7-10) #8 tabs Allergies Allergy/AdvReac Type Severity Reaction Status Date / Time ciprofloxacin (From Cipro) Allergy Verified 10/11/24 14:36 codeine Allergy Verified 10/11/24 14:36 Gadolinium-Containing Allergy Verified 10/11/24 14:36 Contrast Medi Iodinated Contrast Media Allergy Verified 10/11/24 14:36 Penicillins Allergy Verified 10/11/24 14:36 Sulfa (Sulfonamide Allergy Verified 10/11/24 14:36 Antibiotics) sulfamethoxazole (From Allergy Verified 10/11/24 14:36 Bactrim) trimethoprim (From Bactrim) Allergy Verified 10/11/24 14:36 [facility] Disclaimer: The information contained in this section may have been updated after the patient was seen, as this information can be updated by other users. 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 Atypical angina Hyperlipidemia Hypertension Diastolic dysfunction Social History Smoking Status: Never smoker alcohol intake: never substance use type: denies use current occupational status: other Travel in the last 8 weeks?: None household members: other housing: other Have you lived/traveled outside US in past 30 days?: No Contact w/someone who lives/traveled outside US past 30 days?: No Exposure to someone with infectious disease in past 14 days?: No Do you have a fever (greater than 100.4 F or 38 C)?: No Have you tested positive for COVID-19?: No Exposed to someone with COVID-19 in past 14 days?: No Do you have a sore throat?: No Do you have a cough?: No Do you have any weakness?: No Do you have any diarrhea?: No Are you experiencing any unusual bleeding?: No Do you have any muscle aches/pain?: No Do you have any abdominal pain?: No Are you experiencing loss of taste or smell?: No Other 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 Have you received the Flu Vaccine for this season: Yes Have you received the Pneumonia Vaccine: Yes ROS Obtained: Yes Systems reviewed as appropriate & no additional complaints except as documented Per HPI Physical Exam General General appearance: alert, in no apparent distress and obese Head Head exam: atraumatic and normocephalic Eye Eye exam: Present PERRL and EOMI ENT ENT exam: Present mucous membranes moist and other (Airway widely patent, no respiratory distress) Expanded ENT Exam Mouth exam: Present tongue normal and other (No sublingual or submandibular swelling or erythema, no woodiness of the floor of the mouth); Absent drooling, trismus, lip swelling, tongue elevation or tongue swelling Teeth exam: Present dental tenderness # (Along the gingiva of tooth 18, 19, 20 where patient has a bridge in place. No dental abscess appreciated though there is gingival swelling and redness.) and gingival swelling Comment: Tolerating secretions Neck Neck exam: Present normal inspection, full ROM and lymphadenopathy (Single enlarged lymph node near the mandibular angle, mildly tender, no other lymphadenopathy) Chest Chest inspection: Present symmetric chest wall rise Respiratory Respiratory exam: Absent respiratory distress or stridor Cardiovascular Cardiovascular exam: Present regular rate and normal rhythm Extremities Exam Extremities exam: Present full ROM Neurological Exam Neurological exam: Present alert and oriented X3; Absent motor sensory deficit Psychiatric Psychiatric exam: Present normal affect and normal mood Skin Skin exam: Present warm, dry and other (No submandibular redness or evidence of cellulitis) Medical Decision Making Medical Records Medical records reviewed: Yes I reviewed the patient's medical records. Screening: Per USPSTF and CDC recommendations, given the prevalence of disease in our region, it is our hospital?s policy to screen for HIV and viral Hepatitis for all patients aged 18 and over and those with ongoing risk factors. Nii Inquiry Pt receiving controlled substance: No Vital Signs: 03/19/25 06:03 Temperature 97.8 F Temperature Source Oral Pulse Rate [Left Radial] 80 Respiratory Rate 18 Blood Pressure [Left Arm] 194/84 H Blood Pressure Mean [Left Arm] 120 Blood Pressure Position [Left Arm] Supine 02 Sat by Pulse Oximetry 92 L Oxygen Delivery Method Room Air Orders (Tests/Meds): ED MEDICATIONS Discontinued Medications Generic Name Dose Route Start Last Admin Trade Name Freq PRN Reason Stop Dose Admin Hydrocodone Bitart/Acetaminophen 1 tab 03/19/25 06:14 Hydrocodone/Apap 5/325 Mg Tablet PO 03/19/25 06:15 ONCE ONE Benzocaine/Butamben/Tetracaine HCl 1 gm 03/19/25 06:03 Tetracaine/Benzocaine/Butamben 56 Gm [place] TP 03/19/25 06:04 ONCE ONE Clindamycin HCl 450 mg 03/19/25 06:03 Clindamycin 150mg Capsule PO 03/19/25 06:04 ONCE ONE Lidocaine HCl 15 ml 03/19/25 06:03 Lidocaine 2% Viscous Maeve 15ml Udc PO 03/19/25 06:04 ONCE ONE Medical Decision Narrative: In summary, this 75-year-old female with comorbidities described in the HPI which may not be at goal therapy presents to the emergency department today with left lower dental pain. On initial evaluation patient is hypertensive but otherwise hemodynamically stable, afebrile, airway widely patent with no stridor, tolerating secretions, patient has tenderness with gingival swelling at the base of tooth 18, 19, 20 where patient has a bridge but no evidence of dental abscess. Differential diagnosis includes but is not limited to dental infection, dental abscess, considered Tyler's angina as well but patient has no woodiness of the floor of the mouth, no sublingual or submandibular swelling, only a single isolated enlarged lymph node near the mandibular angle with no evidence of submandibular cellulitis, patient has no trismus, no fever, no other systemic signs of infection. No evidence of Tyler's at this time. After shared decision-making discussion with the patient, will proceed with oral medications, no dental block. There is no abscess to be drained. Patient has multiple antibiotic allergies so she was given clindamycin. This was also prescribed to her. She is only able to take nonnephrotoxic medications and has reported an allergy of codeine but reports previously tolerating hydrocodone. I gave her a dose of this in the ER and prescribed a very short course of this for outpatient management because she has limited options for pain management otherwise. She has a completely negative PDMP with no other controlled substance prescriptions which is reassuring. Patient was also provided dental balls and these were applied in the ER. She was given instructions on continued symptomatic monitoring and management, new medication use, follow-up instructions including information about the dental walk-in clinic, and strict return precautions for the ER including but not limited to any symptoms consistent with Tyler's angina. She was also instructed to go home and take her morning blood pressure medications. She indicated understanding and the patient was discharged in stable condition. Critical Care Critical Care Time Critical Care Time: No
[2025-03-19] MEDS: HYDROCODONE/APAP 5/325 MG TABLET 1 TAB PO (06:32)
[2025-03-19 06:34] VITALS: BP 194/84; PULSE 80; RESP 18; TEMP 36.6; O2SAT 92
[2025-03-19] MEDS: TETRACAINE/BENZOCAINE/BUTAMBEN 56 GM SPRAY TP (06:37)
[2025-03-19] MEDS: LIDOCAINE 2% VISCOUS SOL 15ML UDC 15 ML PO (06:37)
== END 2025-03-19 06:38 | disposition home or self-care (01) ==
PROVIDERS: Emergency Provider Emergency Medicine; PCP Internal Medicine Adolescent Medicine
DX: R68.84 Jaw pain (principal); L08.9 Local infection of the skin and subcutaneous tissue, unspecified; I10 Essential (primary) hypertension; E78.5 Hyperlipidemia, unspecified
CPT/HCPCS: 99283

== ENCOUNTER 2025-03-19 19:53 | Observation (INO) | payer MEDICARE, OTHER, SELFPAY ==
[2025-03-19 20:06] VITALS: BP 187/90; PULSE 78; RESP 18; TEMP 36.7; O2SAT 97; BMI 47.2
--- OUTSIDE RECORDS SUMMARY | 2025-03-19 20:07 | XMS_ITS | Encounter Summary ---
Author Organization Healthcare Address [address] [place] [address] Care Team Providers Care Assignment Officer Name Role Phone Heladio Palm MD Primary Care Provider + [phone] Encounter Details Date Type Department Care Team ([facility] Contact Info) Description 02/02/2025 Telephone [facility], Bone [facility] Mineral Metabolism [address], [address] [place] [address] Whitney Doan Social History Tobacco [...] 02/02/2025 1:30 PM EDT Labs faxed to [facility] documented in this encounter Plan of Treatment Upcoming Encounters Date Type Department Care Team (Late st Contact Info) Description 01/26/2026 11:00 AM EDT Office Visit [facility] [address] [place] [address] Luis Olivares MD [address] [place] [address] documented as of this encounter [...] documented as of this encounter Care Teams Assignment Officer Relationship Specialty Start Date End Date Heladio Palm MD [address] [place] [address] PCP - General Internal Medicine 05/02/22 documented as of this encounter
--- OUTSIDE RECORDS SUMMARY | 2025-03-19 20:07 | XMS_ITS | Encounter Summary ---
Author Organization Healthcare Address [address] [place] [address] Care Team Providers Care Gsa Coordinator Name Role Phone Heladio Palm MD Primary Care Provider + [phone] Encounter Details Date Type Department Care Team (Late st Contact Info) Description 03/02/2025 Telephone [facility] [address] [place] [address] Luis Olivares MD [address] [address] Social History Tobacco Use Types [...] date Send To: Mail Best contact number: [phone] (home) Optimal time of day to reach caller: ANYTIME Additional comments/information from caller: None Note: Please do not reply to this message. Follow-up communication and further actions as a result of this message need to be communicated with the patient directly, if the patient is not active onMyChart. If the patient is active on MyChart, they will receive notification of the communication/outcome via tagUint. documented in this encounter Plan of Treatment Upcoming Encounters Date Type Department Care Team (Late st Contact Info) Description 01/26/2026 11:00 AM EDT Office Visit [facility] [address] [place] [address] Luis Olivares MD [address] [facility] [address] [place] [address] documented as of this encounter [...] documented as of this encounter Care Teams Gsa Coordinator Relationship Specialty Start Date End Date Heladio Palm MD [address] [place] [address] PCP - General Internal Medicine 05/02/22 documented as of this encounter
--- OUTSIDE RECORDS SUMMARY | 2025-03-19 20:07 | XMS_ITS | Encounter Summary ---
Author Organization Healthcare Address [address] [place] [address] Care Team Providers Care Chargeback Analyst Name Role Phone Heladio Palm MD Primary Care Provider + [phone] Encounter Details Date Type Department Care Team [...] Description 01/26/2026 11:00 AM EDT Office Visit [facility] [address] [place] [address] Luis Olivares MD [address] [address] documented as of this encounter [...] documented as of this encounter Care Teams Chargeback Analyst Relationship Specialty Start Date End Date Heladio Palm MD [address] [place] [address] PCP - General Internal Medicine 05/02/22 documented as of this encounter
--- OUTSIDE RECORDS SUMMARY | 2025-03-19 20:07 | XMS_ITS | Encounter Summary ---
Author Organization Healthcare Address [address] [place] [address] Care Team Providers Care Sole Trimmer Name Role Phone Heladio Palm MD Primary Care Provider + [phone] Encounter Details Date Type Department Care Team (Late Contact Info) Description 11/03/2024 Orders Only External Location [address] [place] [address] Provider, External Social History Tobacco Use Types [...] 01/26/2026 11:00 AM EDT Office Visit [facility] [address] [place] [address] Luis Olivares MD [address] [place] [address] [address] documented as of this encounter [...] documented as of this encounter Care Teams Sole Trimmer Relationship Specialty Start Date End Date Heladio Palm MD [address] [place] [address] PCP - General Internal Medicine 05/02/22 documented as of this encounter
--- OUTSIDE RECORDS SUMMARY | 2025-03-19 20:07 | XMS_ITS | Encounter Summary ---
Author Organization Healthcare Address [address] [place] [address] Care Team Providers Care Pile Driving Superintendent Name Role Phone Heladio Palm MD Primary Care Provider + [phone] Encounter Details Date Type Department Care Team ([facility] Contact Info) Description 02/09/2025 Telephone [facility]phrology, Bone & Mineral Metabolism [address], [address] [place] [address] Lashonda William, YOUTH WORKER [employer] - [employer] MAIN MEDICAL-SURGICAL Social History [...] left Vm about labs being faxed to [facility] [phone] documented in this encounter Plan of Treatment Upcoming Encounters Date Type Department Care Team (Late st Contact Info) Description 01/26/2026 11:00 AM EDT Office Visit [facility] [address] [place] [address] Luis Olivares MD [address] [place] [address] documented as of this encounter [...] documented as of this encounter Care Teams Pile Driving Superintendent Relationship Specialty Start Date End Date Heladio Palm MD [address] [place] [address] PCP - General Internal Medicine 05/02/22 documented as of this encounter
--- OUTSIDE RECORDS SUMMARY | 2025-03-19 20:07 | XMS_ITS | Encounter Summary ---
Author Organization Healthcare Address [address] [place] [address] Care Team Providers Care Long Distance Operator Name Role Phone Heladio Palm MD Primary Care Provider + [phone] Encounter Details Date Type Department Care Team ([facility] Contact Info) Description 03/13/2025 Telephone [facility], Bone & Mineral Metabolism [address], [address] [place] [address] Alejandra Camacho MD [address] [place] [address] Social History Tobacco Use Types [...] optimal time of day to reach caller: [phone] Note: Please do not reply to this message. Follow-up communication and further actions as a result of this message need to be communicated with the patient directly, if the patient is not active onMyChart. If the patient is active on MyChart, they will receive notification of the communication/outcome via AdScore. documented in this encounter Plan of Treatment Upcoming Encounters Date Type Department Care Team (Late st Contact Info) Description 01/26/2026 11:00 AM EDT Office Visit [facility] [address] [facility] [place] [address] Luis Olivares MD [address] [address] documented as of this [...] documented as of this encounter Care Teams Long Distance Operator Relationship Specialty Start Date End Date Heladio Palm MD [address] [place] [address] PCP - General Internal Medicine 05/02/22 documented as of this encounter
--- OUTSIDE RECORDS SUMMARY | 2025-03-19 20:07 | XMS_ITS | Encounter Summary ---
Author Organization Healthcare Address [address] [place] [id number] Care Team Providers Care Stationary Engineer Apprentice Name Role Phone Heladio Palm MD Primary Care Provider + [phone] Encounter Details Date Type Department Care Team ([facility] Contact Info) Description 02/16/2025 Telephone [facility], Bone & Mineral Metabolism [address] [facility], [address] [place] [address] Daxa Martin MBBS [address] [place], [place] [id number] Social History Tobacco Use Types Packs/Day Years [...] [facility] Best contact number and optimal time of day to reach caller: [phone] Note: Please do not reply to this message. Follow-up communication and further actions as a result of this message need to be communicated with the patient directly, if the patient is not active onMyChart. If the patient is active on MyChart, they will receive notification of the communication/outcome via WonderHillt. * Telephone Encounter - Whitney Dubon - 02/17/2025 9:11 AM EDT L/m to reschedule * Telephone Encounter - Rosie Dewitt - 02/16/2025 9:25 AM EDT Clinical Concern/Question Reason for Call: pt [facility], sending to clinic for availability Best contact number: Other: [phone] Optimal time of day to reach caller: ANYTIME Additional comments/information from caller: None Note: Please do not reply to this message. Follow-up communication and further actions as a result of this message need to be communicated with the patient directly, if the patient is not active onMyChart. If the patient is active on MyChart, they will receive notification of the communication/outcome via WonderHillt. documented in this encounter Plan of Treatment Upcoming Encounters Date Type Department Care Team (Late st Contact Info) Description 01/26/2026 11:00 AM EDT Office Visit [facility] [address] [place] [address] Luis Olivares MD [address] [place] [address] documented as of this encounter [...] documented as of this encounter Care Teams Stationary Engineer Apprentice Relationship Specialty Start Date End Date Heladio Palm MD [address] [place] [address] PCP - General Internal Medicine 05/02/22 documented as of this encounter
--- OUTSIDE RECORDS SUMMARY | 2025-03-19 20:07 | XMS_ITS | Encounter Summary ---
Author Organization Healthcare Address [address] [place] [address] Care Team Providers Care Washroom Attendant Name Role Phone Heladio Palm MD Primary Care Provider + [phone] Encounter Details Date Type Department Care Team ([facility] Contact Info) Description 02/27/2025 Orders Only [facility] Nephrology, Bone & Mineral Metabolism [address], [address] [place] [address] Whitney Doan Hypercalcemia (Primary Dx) [...] Description 01/26/2026 11:00 AM EDT Office Visit [facility] [address] [place] [address] Luis Olivares MD [address] [place] [address] Scheduled Orders Name Type Priority [...] documented as of this encounter Care Teams Washroom Attendant Relationship Specialty Start Date End Date Heladio Palm MD [address] [place] [address] PCP - General Internal Medicine 05/02/22 documented as of this encounter
--- OUTSIDE RECORDS SUMMARY | 2025-03-19 20:07 | XMS_ITS | Encounter Summary ---
Author Organization Healthcare Address [address] [place] [address] Care Team Providers Care Supreme Court Justice Name Role Phone Heladio Palm MD Primary Care Provider [phone] Reason for Visit * Reason Onset Date Comments HCN Clinical Concern/Question 02/27/2025 Encounter Details Date Type Department Care Team (Late st Contact Info) Description 02/27/2025 Telephone [facility] [address], [address] [place] [address] Alejandra Camacho MD [address] [place] [address] HCN Clinical Concern/Question Social History [...] the initial request. Best contact number: Other: [phone] Optimal time of day to reach caller: [...] will receive notification of the communication/outcome via Spotsetter. * Telephone Encounter - Whitney Doan - [...] be sent again. Best contact number: Other: [phone] Optimal time of day to reach caller: ANYTIME Additional comments/information from caller: Not Applicable Note: Please do not reply to this message. Follow-up communication and further actions as a result of this message need to be communicated with the patient directly, if the patient is not active onMyChart. If the patient is active on MyChart, they will receive notification of the communication/outcome via 1-4 Allhart. * Telephone Encounter - Whitney Doan - 02/27/2025 12:19 PM EDT Received telephone readback orders from Dr. 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 Best contact number: Other: [phone] Optimal time of day to reach caller: ANYTIME Additional comments/information from caller: None Note: Please do not reply to this message. Follow-up communication and further actions as a result of this message need to be communicated with the patient directly, if the patient is not active onMyChart. If the patient is active on MyChart, they will receive notification of the communication/outcome via 1-4 Allhart. documented in this encounter Plan of Treatment Upcoming Encounters Date Type Department Care Team (Late st Contact Info) Description 01/26/2026 11:00 AM EDT Office Visit [facility] [address] [place] [address] Luis Olivares MD [address] [facility] [address] [place] [address] Scheduled Orders Name Type Priority Associated Diagnoses Orde r Schedule PTH Intact Total Lab Routine Hyperparathyroidism, unspecified ([facility]/HCC) Expected: 02/27/2025 (Approximate), Expires: 08/29/2026 documented as of this encounter Visit Diagnoses Diagnosis Renal osteodystrophy- Primary Hyperparathyroidism, unspecified ([facility]) Hyperparathyroidism, unspecified documented in this encounter Additional Health Concerns Assessment Noted Time PHQ-9 Depression Total Score: 12 023 12:53 PM EDT A fall risk assessment has been complete d for the patient 12/30/2024 10:32 AM EDT A Body Mass Index follow-up plan has been documented for the patient 12/30/2024 11:11 AM EDT documented as of this encounter Care Teams Supreme Court Justice Relationship Specialty Start Date End Date Heladio Palm MD [address] [place] [address] PCP - General Internal Medicine 05/02/22 documented as of this encounter
--- OUTSIDE RECORDS SUMMARY | 2025-03-19 20:07 | XMS_ITS | Encounter Summary ---
Author Organization Healthcare Address [address] [place] [address] Care Team Providers Care Dining Service Supervisor Name Role Phone Heladio Palm MD Primary Care Provider + [phone] Encounter Details Date Type Department Care Team ([facility] Contact Info) Description 02/09/2025 Telephone [facility] Mineral Met[facility] [address] [facility], [address] [place] [address] Lashonda William, [employer] GS - 7 MAIN MEDICAL-SURGICAL Social History [...] THAT HER LABS HAS BEEN FAXED TO [phone]. documented in this encounter Plan of Treatment Upcoming Encounters Date Type Department Care Team (Late st Contact Info) Description 01/26/2026 11:00 AM EDT Office Visit [facility] [address] [place] [address] Luis Olivares MD [address] [facility] [address] [place] [address] documented as of this encounter [...] documented as of this encounter Care Teams Dining Service Supervisor Relationship Specialty Start Date End Date Heladio Palm MD [address] [place], [place] [address] PCP - General Internal Medicine 05/02/22 documented as of this encounter
--- OUTSIDE RECORDS SUMMARY | 2025-03-19 20:07 | XMS_ITS | Clinical Summary ---
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 TAKE 1 TABLET [...] Type Department Care Team Description 03/13/2025 Telephone [facility] [place] [facility] Mineral Metabolism [address] [facility], [address] [place] [address] Alejandra Camacho MD 03/12/2025 Travel 03/02/2025 Telephone [facility] [address] [place] [address] Luis Olivares MD 02/27/2025 Orders Only [facility] Nephrology, Bone & Mineral Metabolism [address], [address] [place] [address] Whitney Doan Hypercalcemia (Primary Dx) 02/27/2025 [facility] Nephrology, Bone & Mineral Metabolism [address] [facility], [address] [place] [address] Alejandra Camacho MD HCN Clinical Concern/Question 02/16/2025 [facility] Nephrology, Bone & Mineral Metabolism [address] [facility], [address] [place] [address] Daxa Martin MBBS 02/09/2025 [facility] Nephrology, Bone & Mineral Metabolism [address] [facility], [address] [place] [address] Lashonda William, NUCLEAR MEDICAL TECHNOLOGIST 02/09/2025 [facility] Nephrology, Bone & Mineral Metabolism [address] [facility], [address] [place] [address] Lashonda William, NUCLEAR MEDICAL TECHNOLOGIST 02/02/2025 [facility] Nephrology, Bone & Mineral Metabolism [address], [address] [place] [address] Whitney Doan 02/02/2025 Travel 01/30/2025 Travel 12/30/2024 10:15 AM EDT Office Visit [facility] [address] [place] [address] Luis Olivares MD Diabetes mellitus type 2 without retinopathy ([facility]/HCC) (Primary Dx); Floppy lid syndrome; Pseudophakia of both eyes 12/30/2024 Travel 12/29/2024 11:04 AM EDT - 12/29/2024 11:59 PM EDT Hospital Encounter [facility] [address] [place] [address] Lumbar pain with radiation down both legs Discharge Disposition: Home or Self Care 12/29/2024 11:00 AM EDT Office Visit [facility] [address], [address] [place] [address] Deng Atkins, PA Lumbar pain with radiation down both legs (Primary Dx); Cervical pain (neck); Spondylosis of cervical region without myelopathy or radiculopathy; Chronic bilateral low back pain without sciatica; Dizziness 12/29/2024 10:24 AM EDT - 12/29/2024 11:03 AM EDT Hospital Encounter Medical Office Building Radiology [address] [place] [address] Cervical pain (neck) Discharge Disposition: [...] Description 01/26/2026 11:00 AM EDT Office Visit [facility] [address] [place] [address] Luis Olivares MD [address] [address] Health Maintenance Due Date Last [...] 05/22/2020 11/23/2019, 11/23/2019, 09/07/2019, Additional history exists [id number] Vaccine (4 - 2023- season) 2024 06/27/2021, [...] Recently Relevant to Health Maintenance Results * DATA ANALYTICS ARCHITECT: L-Spine: XR Lumbar Spine 2 or 3 [...] IMG XR PROCEDURES Final Resul t * DATA ANALYTICS ARCHITECT: C-Spine: XR Cervical Spine (AP/Lateral/Odontoid) (12/29/2024 10:32 [...] <6.0% Children and Adolescents <7.5% . Source: [place] [employer]. Standards of medical care in diabetes, 2017. Diabetes Care.2017:40 (suppl 1):S1-S135. . HbA1c assay performed by an ion-exchange chromatography method that is certified traceable to the DCCT. 11/23/2019 2:45 PM EDT 11/23/2019 2:59 PM EDT Deng Brumfield APRN LAB BLOOD ORDERABLES Fadia l Result SUNQUEST from Last 3 Months or Most Recently Relevant to Health Maintenance [place] [address] [employer] Care Teams Bit Bender Relationship Specialty Start Date End Date Heladio Palm MD [facility] [address] [place] [address] PCP - General Internal Medicine 05/02/22
--- OUTSIDE RECORDS SUMMARY | 2025-03-19 20:07 | XMS_ITS | Encounter Summary ---
Author Organization Healthcare Address [address] [place] [address] Care Team Providers Care Mixer Driver Name Role Phone Heladio Palm MD Primary Care Provider + [phone] Reason for Visit * Reason Comments Med Refill Encounter Details Date Type Department Care Team (Late st Contact Info) Description 05/05/2024 Refill [facility] [place] [address] [place] [address] Willow Fry PA [address] [place] [address] Coronary artery disease involving [place] coronary artery of [place] heart without angina pectoris Social History Tobacco [...] Description 01/26/2026 11:00 AM EDT Office Visit [facility] [address] [place] [address] Luis Olivares MD [address] [facility] [address] [place] [address] documented as of this encounter Visit Diagnoses Diagnosis Coronary artery disease involving sa[place] coronary artery of [place] heart without angina pectoris documented in this encounter Additional Health Concerns Assessment Noted Time PHQ-9 Depression Total Score: 12 023 12:53 PM EDT A fall risk assessment has been complete d for the patient 02/08/2024 3:04 PM EDT A Body Mass Index follow-up plan has been documented for the patient 03/30/2024 2:46 PM EDT documented as of this encounter Care Teams Mixer Driver Relationship Specialty Start Date End Date Heladio Palm MD [address] [place] [address] PCP - General Internal Medicine 05/02/22 documented as of this encounter
--- OUTSIDE RECORDS SUMMARY | 2025-03-19 20:07 | XMS_ITS | Encounter Summary ---
Author Organization Healthcare Address [address] [place] [address] Care Team Providers Care Creative Manager Name Role Phone Heladio Palm MD Primary Care Provider + [phone] Encounter Details Date Type Department Care Team [...] Description 01/26/2026 11:00 AM EDT Office Visit [facility] [address] [place] [address] Luis Olivares MD [address] [address] documented as of this encounter [...] documented as of this encounter Care Teams Creative Manager Relationship Specialty Start Date End Date Heladio Palm MD [address] [place] [address] PCP - General Internal Medicine 05/02/22 documented as of this encounter
--- OUTSIDE RECORDS SUMMARY | 2025-03-19 20:07 | XMS_ITS | Encounter Summary ---
Author Organization Healthcare Address [address] [place] [address] Care Team Providers Care Diorama Model Maker Name Role Phone Heladio Palm MD Primary Care Provider + [phone] Encounter Details Date Type Department Care Team [...] 01/26/2026 11:00 AM EDT Office Visit [facility] [address] [place] [address] Luis Olivares MD [address] [address] documented as of this encounter [...] documented as of this encounter Care Teams Diorama Model Maker Relationship Specialty Start Date End Date Heladio Palm MD [address] [place] [address] PCP - General Internal Medicine 05/02/22 documented as of this encounter
--- NOTE | 2025-03-19 20:22 | [facility].EDGENADL ---
Discharge Plan Disposition Patient Disposition: Admitted Clinical Impressions Clinical Impression: Cellulitis Qualifiers: Site of cellulitis: face Qualified Code(s): L03.211 - Cellulitis of face Discharge ED Provider: Zana Eastman General Adult HPI <HEIDI Garcia - Last Filed: 03/19/25 22:00> General Chief complaint: Dental/Oral Stated complaint: tooth ache and infection Time Seen by Provider: 03/19/25 20:22 Mode of Arrival: Ambulatory Source of Information: Patient Description of Symptoms (Recalled from ER Triage Doc. by RN): pt presents to the Ed d/t complaints of increased swelling in jaw and bridge on teeth. pt was seen this morning here and given norco, dental balls, and clindamycin History of Present Illness HPI narrative: Patient presents for left mouth and jaw pain. Patient was seen and evaluated earlier this date for similar complaints and ultimately was discharged with clindamycin and recommendations to follow-up with her dentist. However patient has taken her clindamycin and pain medication but she has had increasing marked swelling and pain is not controlled with the opiates. Patient reports no fever difficulty swallowing or breathing but has had marked swelling since this morning and her left mandible. She still has no difficulty in opening her mouth but it does cause more pain. Related Data Home Medications ?Medication ?Instructions ?Recorded ?Confirmed ascorbate calcium (vitamin C) 500 500 mg PO DAILY 05/22/22 03/20/25 mg tablet atorvastatin 40 mg tablet 40 mg PO HS 05/22/22 03/20/25 cholecalciferol (vitamin D3) 50 50 mcg PO DAILY 05/22/22 03/20/25 mcg (2,000 unit) capsule levothyroxine 100 mcg tablet 100 mcg PO DAILY 05/22/22 03/20/25 losartan 50 mg tablet 50 mg PO DAILY 05/22/22 03/20/25 zinc 1 tab PO DAILY 05/22/22 03/20/25 carvedilol 25 mg tablet 25 mg PO BID 03/03/24 03/20/25 magnesium aspart,citrate,oxide 800 mg PO DAILY 03/03/24 03/20/25 clindamycin HCl 150 mg capsule 450 mg PO TID 03/20/25 03/20/25 dapagliflozin propanediol 10 mg 10 mg PO DAILY 03/20/25 03/20/25 tablet (Farxiga) hydrocodone 5 mg-acetaminophen 325 1 tab PO Q8H PRN PAIN 03/20/25 03/20/25 mg tablet metformin 750 mg tablet,extended 750 mg PO HS 03/20/25 03/20/25 release 24 hr nitrofurantoin 100 mg PO DAILY 03/20/25 03/20/25 monohydrate/macrocrystals 100 mg capsule triamterene 37.5 1 cap PO DAILY 03/20/25 03/20/25 mg-hydrochlorothiazide 25 mg capsule triamterene 37.5 1 cap PO DAILY 03/20/25 03/20/25 mg-hydrochlorothiazide 25 mg capsule venlafaxine 100 mg tablet 100 mg PO DAILY 03/20/25 03/20/25 Previous Rx's ?Medication ?Instructions ?Recorded clopidogrel 75 mg tablet (Plavix) 75 mg PO DAILY #30 tabs 07/01/22 pantoprazole 40 mg tablet,delayed 40 mg PO DAILY #30 tabs 07/01/22 release (Protonix) amlodipine 2.5 mg tablet (Norvasc) 2.5 mg PO DAILY #90 tabs 12/23/24 Allergies Allergy/AdvReac Type Severity Reaction Status Date / Time ciprofloxacin (From Cipro) Allergy Verified 10/11/24 14:36 codeine Allergy Verified 10/11/24 14:36 Gadolinium-Containing Allergy Verified 10/11/24 14:36 Contrast Medi Iodinated Contrast Media Allergy Verified 10/11/24 14:36 Penicillins Allergy Verified 10/11/24 14:36 Sulfa (Sulfonamide Allergy Verified 10/11/24 14:36 Antibiotics) sulfamethoxazole (From Allergy Verified 10/11/24 14:36 Bactrim) trimethoprim (From Bactrim) Allergy Verified 10/11/24 14:36 [facility] <HEIDI Garcia - Last Filed: 03/19/25 22:00> [facility] Disclaimer: The information contained in this section may have been updated after the patient was seen, as this information can be updated by other users. 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 Nasal fracture Pleural effusion Severe sepsis with acute organ dysfunction Acute respiratory distress syndrome (ARDS) Septic shock Hyperglycemia Dyspnea Dependent edema Mixed acid base balance disorder Hypercapnia Acute on chronic respiratory failure with hypoxemia COPD exacerbation Acute respiratory failure Abnormal electrocardiogram [ECG] [EKG] Prediabetes Palpitations Chest pressure Abnormal result of cardiovascular function study CAD (coronary atherosclerotic disease) Palpitations Atypical angina Hyperlipidemia Hypertension Diastolic dysfunction Surgical History H/O heart artery stent Status post renal artery angioplasty Family History Other No significant family history Social History Smoking Status: Former smoker how long ago did patient quit smokin years ago alcohol intake: never substance use type: denies use current occupational status: other Travel in the last 8 weeks?: None household members: other housing: other Have you lived/traveled outside [place] in past 30 days?: No Contact w/someone who lives/traveled outside US past 30 days?: No Exposure to someone with infectious disease in past 14 days?: No Do you have a fever (greater than 100.4 F or 38 C)?: No Have you tested positive for COVID-19?: No Exposed to someone with COVID-19 in past 14 days?: No Do you have a sore throat?: No Do you have a cough?: No Do you have any weakness?: No Do you have any diarrhea?: No Are you experiencing any unusual bleeding?: No Do you have any muscle aches/pain?: No Do you have any abdominal pain?: No Are you experiencing loss of taste or smell?: No Other 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 Have you received the Flu Vaccine for this season: Yes Have you received the Pneumonia Vaccine: Yes <HEIDI Garcia - Last Filed: 03/19/25 22:00> ROS Obtained: Yes Systems reviewed as appropriate & no additional complaints except as documented Physical Exam <HEIDI Garcia - Last Filed: 03/19/25 22:00> General General appearance: alert and in no apparent distress Respiratory Respiratory exam: Present normal lung sounds bilaterally Cardiovascular Cardiovascular exam: Present regular rate Neurological Exam Neurological exam: Present alert and oriented X3 Medical Decision Making <HEIDI Garcia - Last Filed: 03/19/25 22:00> Medical Records Medical records reviewed: Yes I reviewed the patient's medical records. Screening: Per USPSTF and CDC recommendations, given the prevalence of disease in our region, it is our hospital?s policy to screen for HIV and viral Hepatitis for all patients aged 18 and over and those with ongoing risk factors. Nii Inquiry Pt receiving controlled substance: No Vital Signs: 03/19/25 20:06 03/19/25 21:00 03/19/25 22:01 Temperature 98.1 F Temperature Source Oral Pulse Rate 77 72 Pulse Rate [Right Radial] 78 Respiratory Rate 18 Blood Pressure 172/92 H 176/79 H Blood Pressure [Right Arm] 187/90 H Blood Pressure Mean Blood Pressure Mean [Right Arm] 122 Blood Pressure Source Blood Pressure Position Blood Pressure Position [Right Arm] Supine 02 Sat by Pulse Oximetry 97 97 93 L Oxygen Delivery Method Room Air 03/19/25 22:30 03/19/25 23:00 03/19/25 23:30 Temperature Temperature Source Pulse Rate 75 68 73 Pulse Rate [Right Radial] Respiratory Rate Blood Pressure 189/95 H 173/89 H 180/84 H Blood Pressure [Right Arm] Blood Pressure Mean Blood Pressure Mean [Right Arm] Blood Pressure Source Blood Pressure Position Blood Pressure Position [Right Arm] 02 Sat by Pulse Oximetry 93 L 92 L 89 L Oxygen Delivery Method 03/20/25 00:49 03/20/25 00:51 03/20/25 01:00 Temperature Temperature Source Pulse Rate 72 71 Pulse Rate [Right Radial] Respiratory Rate 16 Blood Pressure 147/77 H 147/77 H Blood Pressure [Right Arm] Blood Pressure Mean 94 Blood Pressure Mean [Right Arm] Blood Pressure Source Automatic Cuff Blood Pressure Position Sitting Blood Pressure Position [Right Arm] 02 Sat by Pulse Oximetry 93 L 93 L Oxygen Delivery Method Room Air Room Air Lab Data Lab results reviewed: Yes I reviewed the patient's lab results. Lab Results 03/19/25 20:58: WBC 14.0 H, RBC 4.76, Hgb 14.6, Hct 43.6, MCV 91.6, MCH 30.7, MCHC 33.5, RDW 12.9, Plt Count 235, MPV 9.4, Neut % (Auto) 77.3, Lymph % (Auto) 11.2, Leake % (Auto) 7.1, Eos % (Auto) 3.6, Baso % (Auto) 0.4, Neut # (Auto) 10.8 H, Lymph # (Auto) 1.6, Leake # (Auto) 1.0, Eos # (Auto) 0.5 H, Baso # (Auto) 0.1, Sodium 136, Potassium 4.1, Chloride 95 L, Carbon Dioxide 29, Anion Gap 16.1 H, BUN 24 H, Creatinine 1.10 H, Estimated Creat Clear 33, Estimated GFR 48 L, Est GFR ( Amer) 58 L, Glucose 158 H, Calcium 10.1, Total Bilirubin 0.5, AST 24, ALT 16, Alkaline Phosphatase 105, C-Reactive Protein 16.8 H, Total Protein 8.2, Albumin 4.5, Globulin 3.7 H, Albumin/Globulin Ratio 1.2, Procalcitonin 0.067 03/19/25 20:58 03/19/25 20:58 Orders (Tests/Meds): ED MEDICATIONS Generic Name Dose Route Start Last Admin Trade Name Freq PRN Reason Stop Dose Admin Acetaminophen 650 mg 03/20/25 00:56 Acetaminophen 325mg Tab PO 04/19/25 00:55 Q4HP PRN Fever or Mild Pain (1-3) Hydrocodone Bitart/Acetaminophen 1 tab 03/20/25 01:39 Hydrocodone/Apap 5/325 Mg Tablet PO 04/19/25 01:38 Q6HP PRN Moderate to Severe Pain (4-10) Amlodipine Besylate 2.5 mg 03/20/25 09:00 Amlodipine 2.5mg Tablet PO 04/19/25 08:59 DAILY [facility] Carvedilol 25 mg 03/20/25 09:00 Carvedilol 25mg Tablet PO 04/19/25 08:59 BID [facility] Clopidogrel Bisulfate 75 mg 03/20/25 09:00 Clopidogrel 75mg Tab PO 04/19/25 08:59 DAILY [facility] Dapagliflozin 10 mg 03/20/25 09:00 Dapagliflozin Propanediol 10 Mg Tablet PO 04/19/25 08:59 DAILY [facility] Clindamycin Phosphate 600 mg in 50 mls @ 100 mls/hr 03/20/25 09:00 Clindamycin 600mg/50ml D5w Premix IV 03/30/25 08:59 Q8H [facility] Ceftriaxone Sodium 2 gm/ 100 mls @ 200 mls/hr 03/20/25 21:00 Sodium Chloride IV 03/30/25 20:59 Q24H [facility] Insulin Human Lispro 0 unit 03/20/25 06:00 07/14/25 05:36 Humalog 100 Units/Ml 10ml Vial (Ssi) SUBCUT 04/19/25 05:59 4 unit ACHS [facility] Administration Protocol Irbesartan 75 mg 03/20/25 09:00 Irbesartan 75mg Tablet PO 04/19/25 08:59 DAILY [facility] Ketorolac Tromethamine 15 mg 03/20/25 00:56 Ketorolac 30mg/Ml Vial IV 03/25/25 00:55 Q6HP PRN Moderate Pain (4-6) Levalbuterol HCl 1.25 mg 03/20/25 01:19 Levalbuterol 1.25mg/3ml Neb IH 04/19/25 01:18 TIDP PRN Shortness Of Breath Levothyroxine Sodium 100 mcg 03/21/25 07:00 Levothyroxine 100mcg (0.1mg) Tab PO 04/20/25 06:59 DAILYDM [facility] Metformin HCl 750 mg 03/20/25 21:00 Metformin 500mg Tablet PO 04/19/25 20:59 HS [facility] Ondansetron HCl 4 mg 03/20/25 00:56 Ondansetron 4mg/2ml Vial IV 04/19/25 00:55 Q8HP PRN Nausea Pantoprazole Sodium 40 mg 03/20/25 21:00 Pantoprazole 40mg Tablet PO 04/19/25 20:59 HS [facility] Sodium Chloride 10 ml 03/20/25 07:42 Sodium Chloride 0.9% 10ml Flush Syringe IV 04/19/25 07:41 NEEDED PRN Maintain IV Site Tetracycl/Hydrocort/Nystatin/Diphen 15 ml 03/20/25 09:00 Magic Mouthwash 300ml Bottle PO 04/19/25 08:59 QID [facility] Venlafaxine HCl 112.5 mg 03/20/25 09:00 Venlafaxine 37.5mg Tablet PO 04/19/25 08:59 DAILY [facility] Discontinued Medications Generic Name Dose Route Start Last Admin Trade Name Freq PRN Reason Stop Dose Admin Diphenhydramine HCl 50 mg 03/19/25 20:32 03/19/25 20:55 Diphenhydramine 50mg/Ml Vial IV 03/19/25 20:33 50 mg ONCE ONE Administration Hydromorphone HCl 0.5 mg 03/19/25 21:34 03/19/25 21:47 Hydromorphone 2mg/Ml Syringe IV 03/19/25 21:35 0.5 mg ONCE ONE Administration Sodium Chloride 1,000 mls @ 999 mls/hr 03/19/25 20:26 03/19/25 20:47 Sod Chlor 0.9% 1000ml Bag IV 03/19/25 21:26 999 mls/hr .Q1H1M ONE Administration Sodium Chloride 1,000 mls @ 999 mls/hr 03/19/25 20:32 03/19/25 20:47 Sod Chlor 0.9% 1000ml Bag IV 03/19/25 21:32 999 mls/hr .Q1H1M ONE Administration Clindamycin Phosphate 600 mg in 50 mls @ 100 mls/hr 03/20/25 00:30 03/20/25 00:47 Clindamycin 600mg/50ml D5w Premix IV 03/30/25 00:29 100 mls/hr Q8H [facility] Administration Ceftriaxone Sodium 1 gm/ 50 mls @ 100 mls/hr 03/20/25 01:15 03/20/25 01:55 Sodium Chloride IV 03/30/25 01:14 100 mls/hr Q12H [facility] Administration Iopamidol 150 ml 03/19/25 21:43 03/19/25 21:45 Iopamidol-370 (76%);100ml Bottle IV 03/19/25 21:44 150 ml ONCE ONE Administration Methylprednisolone Sodium Succinate 80 mg 03/19/25 20:32 03/19/25 20:55 Methylprednisolone Sod Succ 125mg Vial IV 03/19/25 20:33 80 mg ONCE ONE Administration Non-Formulary Medication 800 mg 03/20/25 09:00 Magnesium Aspart,Citrate,Oxide PO 04/19/25 08:59 DAILY [facility] Sodium Chloride 10 ml 03/19/25 21:43 03/19/25 21:44 Sodium Chloride 0.9% 10ml Syr (Rad Only) IV 04/18/25 21:42 10 ml NEEDED PRN Administration Maintain IV Site ORDERS Category Date Time Status CT facial bones w con Stat Cat Scan 03/19/25 20:[address] soft tissue neck w con Stat Cat Scan 03/19/25 20:26 Completed CBC w/Auto Diff [Complete Blood Count Auto Diff] Stat Lab 03/19/25 20:58 Completed CMP [Comprehensive Metabolic Panel] Stat Lab 03/19/25 20:58 Completed CRP [C-Reactive Protein] Stat Lab 03/19/25 20:58 Completed Procalcitonin Stat Lab 03/19/25 20:58 Completed Blood Culture Stat Micro 03/19/25 21:11 Received EKG Request [ECG Request] Stat Y 03/20/25 00:49 Ordered Medical Decision Narrative: In summary patient is a 75-year-old female who presents to the emergency department for evaluation of left lower facial swelling and dental pain. Patient is hypertensive on arrival with a blood pressure of 187/90 pulse is a 78 with sinus rhythm on the bedside monitor breathing 18 times a minute satting at 97% on room air upon arrival, afebrile at 90.1. Physical exam is remarkable for significant swelling in the left side of her mandible that is markedly protruding. There is redness. There is firmness and fluctuance. Examination of the oral mucosa reveals no woody floor the mouth no Tyler angina. She does have bulging in the left buccal recess but I do not see any obvious abscess. Posterior pharynx is patent with no evidence of occlusion voice is normal with normal phonation. Patient has no stridor breath sounds Equal bilaterally to the bases. She has swollen lymph nodes that are tender in the left anterior chain. Differential diagnosis includes abscess versus worsening cellulitis versus deep space infection. Initial workup will be conducted with hematologic labs blood cultures CT scan soft tissue of the neck. Initial interventions include crystalloid bolus Dilaudid and patient had flushing with iodinated contrast but has had no anaphylaxis but and over abundance of caution we will premedicate prior to CT scan. Patient has also had 3 heart caths with no anaphylaxis as well.. Initial workup ordered and pending at the time of handoff to Dr. Eastman at 2200 hrs. <Ariella Diallo MD - Last Filed: 03/20/25 08:15> Vital Signs: 03/19/25 20:06 03/19/25 21:00 03/19/25 22:01 Temperature 98.1 F Temperature Source Oral Pulse Rate 77 72 Pulse Rate [Right Radial] 78 Respiratory Rate 18 Blood Pressure 172/92 H 176/79 H Blood Pressure [Right Arm] 187/90 H Blood Pressure Mean Blood Pressure Mean [Right Arm] 122 Blood Pressure Source Blood Pressure Position Blood Pressure Position [Right Arm] Supine 02 Sat by Pulse Oximetry 97 97 93 L Oxygen Delivery Method Room Air 03/19/25 22:30 03/19/25 23:00 03/19/25 23:30 Temperature Temperature Source Pulse Rate 75 68 73 Pulse Rate [Right Radial] Respiratory Rate Blood Pressure 189/95 H 173/89 H 180/84 H Blood Pressure [Right Arm] Blood Pressure Mean Blood Pressure Mean [Right Arm] Blood Pressure Source Blood Pressure Position Blood Pressure Position [Right Arm] 02 Sat by Pulse Oximetry 93 L 92 L 89 L Oxygen Delivery Method 03/20/25 00:49 03/20/25 00:51 03/20/25 01:00 Temperature Temperature Source Pulse Rate 72 71 Pulse Rate [Right Radial] Respiratory Rate 16 Blood Pressure 147/77 H 147/77 H Blood Pressure [Right Arm] Blood Pressure Mean 94 Blood Pressure Mean [Right Arm] Blood Pressure Source Automatic Cuff Blood Pressure Position Sitting Blood Pressure Position [Right Arm] 02 Sat by Pulse Oximetry 93 L 93 L Oxygen Delivery Method Room Air Room Air Lab Data Lab Results 03/19/25 20:58: WBC 14.0 H, RBC 4.76, Hgb 14.6, Hct 43.6, MCV 91.6, MCH 30.7, MCHC 33.5, RDW 12.9, Plt Count 235, MPV 9.4, Neut % (Auto) 77.3, Lymph % (Auto) 11.2, Leake % (Auto) 7.1, Eos % (Auto) 3.6, Baso % (Auto) 0.4, Neut # (Auto) 10.8 H, Lymph # (Auto) 1.6, Leake # (Auto) 1.0, Eos # (Auto) 0.5 H, Baso # (Auto) 0.1, Sodium 136, Potassium 4.1, Chloride 95 L, Carbon Dioxide 29, Anion Gap 16.1 H, BUN 24 H, Creatinine 1.10 H, Estimated Creat Clear 33, Estimated GFR 48 L, Est GFR ( Amer) 58 L, Glucose 158 H, Calcium 10.1, Total Bilirubin 0.5, AST 24, ALT 16, Alkaline Phosphatase 105, C-Reactive Protein 16.8 H, Total Protein 8.2, Albumin 4.5, Globulin 3.7 H, Albumin/Globulin Ratio 1.2, Procalcitonin 0.067 Orders (Tests/Meds): ED MEDICATIONS Generic Name Dose Route Start Last Admin Trade Name Freq PRN Reason Stop Dose Admin Acetaminophen 650 mg 03/20/25 00:56 Acetaminophen 325mg Tab PO 04/19/25 00:55 Q4HP PRN Fever or Mild Pain (1-3) Hydrocodone Bitart/Acetaminophen 1 tab 03/20/25 01:39 Hydrocodone/Apap 5/325 Mg Tablet PO 04/19/25 01:38 Q6HP PRN Moderate to Severe Pain (4-10) Amlodipine Besylate 2.5 mg 03/20/25 09:00 Amlodipine 2.5mg Tablet PO 04/19/25 08:59 DAILY [facility] Carvedilol 25 mg 03/20/25 09:00 Carvedilol 25mg Tablet PO 04/19/25 08:59 BID [facility] Clopidogrel Bisulfate 75 mg 03/20/25 09:00 Clopidogrel 75mg Tab PO 04/19/25 08:59 DAILY [facility] Dapagliflozin 10 mg 03/20/25 09:00 Dapagliflozin Propanediol 10 Mg Tablet PO 04/19/25 08:59 DAILY [facility] Clindamycin Phosphate 600 mg in 50 mls @ 100 mls/hr 03/20/25 09:00 Clindamycin 600mg/50ml D5w Premix IV 03/30/25 08:59 Q8H [facility] Ceftriaxone Sodium 2 gm/ 100 mls @ 200 mls/hr 03/20/25 21:00 Sodium Chloride IV 03/30/25 20:59 Q24H [facility] Insulin Human Lispro 0 unit 03/20/25 06:00 03/20/25 05:36 Humalog 100 Units/Ml 10ml Vial ([facility]) SUBCUT 04/19/25 05:59 4 unit ACHS [facility] Administration Protocol Irbesartan 75 mg 03/20/25 09:00 Irbesartan 75mg Tablet PO 04/19/25 08:59 DAILY [facility] Ketorolac Tromethamine 15 mg 03/20/25 00:56 Ketorolac 30mg/Ml Vial IV 03/25/25 00:55 Q6HP PRN Moderate Pain (4-6) Levalbuterol HCl 1.25 mg 03/20/25 01:19 Levalbuterol 1.25mg/3ml Neb IH 04/19/25 01:18 TIDP PRN Shortness Of Breath Levothyroxine Sodium 100 mcg 03/21/25 07:00 Levothyroxine 100mcg (0.1mg) Tab PO 04/20/25 06:59 DAILYDM [facility] Metformin HCl 750 mg 03/20/25 21:00 Metformin 500mg Tablet PO 04/19/25 20:59 HS [facility] Ondansetron HCl 4 mg 03/20/25 00:56 Ondansetron 4mg/2ml Vial IV 04/19/25 00:55 Q8HP PRN Nausea Pantoprazole Sodium 40 mg 03/20/25 21:00 Pantoprazole 40mg Tablet PO 04/19/25 20:59 HS [facility] Sodium Chloride 10 ml 03/20/25 07:42 Sodium Chloride 0.9% 10ml Flush Syringe IV 04/19/25 07:41 NEEDED PRN Maintain IV Site Tetracycl/Hydrocort/Nystatin/Diphen 15 ml 03/20/25 09:00 Magic Mouthwash 300ml Bottle PO 04/19/25 08:59 QID [facility] Venlafaxine HCl 112.5 mg 03/20/25 09:00 Venlafaxine 37.5mg Tablet PO 04/19/25 08:59 DAILY [facility] Discontinued Medications Generic Name Dose Route Start Last Admin Trade Name Freq PRN Reason Stop Dose Admin Diphenhydramine HCl 50 mg 03/19/25 20:32 03/19/25 20:55 Diphenhydramine 50mg/Ml Vial IV 03/19/25 20:33 50 mg ONCE ONE Administration Hydromorphone HCl 0.5 mg 03/19/25 21:34 03/19/25 21:47 Hydromorphone 2mg/Ml Syringe IV 03/19/25 21:35 0.5 mg ONCE ONE Administration Sodium Chloride 1,000 mls @ 999 mls/hr 03/19/25 20:26 03/19/25 20:47 Sod Chlor 0.9% 1000ml Bag IV 03/19/25 21:26 999 mls/hr .Q1H1M ONE Administration Sodium Chloride 1,000 mls @ 999 mls/hr 03/19/25 20:32 03/19/25 20:47 Sod Chlor 0.9% 1000ml Bag IV 03/19/25 21:32 999 mls/hr .Q1H1M ONE Administration Clindamycin Phosphate 600 mg in 50 mls @ 100 mls/hr 03/20/25 00:30 03/20/25 00:47 Clindamycin 600mg/50ml D5w Premix IV 03/30/25 00:29 100 mls/hr Q8H [facility] Administration Ceftriaxone Sodium 1 gm/ 50 mls @ 100 mls/hr 03/20/25 01:15 03/20/25 01:55 Sodium Chloride IV 03/30/25 01:14 100 mls/hr Q12H [facility] Administration Iopamidol 150 ml 03/19/25 21:43 03/19/25 21:45 Iopamidol-370 (76%);100ml Bottle IV 03/19/25 21:44 150 ml ONCE ONE Administration Methylprednisolone Sodium Succinate 80 mg 03/19/25 20:32 03/19/25 20:55 Methylprednisolone Sod Succ 125mg Vial IV 03/19/25 20:33 80 mg ONCE ONE Administration Non-Formulary Medication 800 mg 03/20/25 09:00 Magnesium Aspart,Citrate,Oxide PO 04/19/25 08:59 DAILY [facility] Sodium Chloride 10 ml 03/19/25 21:43 03/19/25 21:44 Sodium Chloride 0.9% 10ml Syr (Rad Only) IV 04/18/25 21:42 10 ml NEEDED PRN Administration Maintain IV Site ORDERS Category Date Time Status CT facial bones w con Stat Cat Scan 03/19/25 20:[address] soft tissue neck w con Stat Cat Scan 03/19/25 20:26 Completed CBC w/Auto Diff [Complete Blood Count Auto Diff] Stat Lab 03/19/25 20:58 Completed CMP [Comprehensive Metabolic Panel] Stat Lab 03/19/25 20:58 Completed CRP [C-Reactive Protein] Stat Lab 03/19/25 20:58 Completed Procalcitonin Stat Lab 03/19/25 20:58 Completed Blood Culture Stat Micro 03/19/25 21:11 Received EKG Request [ECG Request] Stat Y 03/20/25 00:49 Ordered Medical Decision Narrative: In summary patient is a 75-year-old female who presents to the emergency department for evaluation of left lower facial swelling and dental pain. Patient is hypertensive on arrival with a blood pressure of 187/90 pulse is a 78 with sinus rhythm on the bedside monitor breathing 18 times a minute satting at 97% on room air upon arrival, afebrile at 90.1. Physical exam is remarkable for significant swelling in the left side of her mandible that is markedly protruding. There is redness. There is firmness and fluctuance. Examination of the oral mucosa reveals no woody floor the mouth no Tyler angina. She does have bulging in the left buccal recess but I do not see any obvious abscess. Posterior pharynx is patent with no evidence of occlusion voice is normal with normal phonation. Patient has no stridor breath sounds Equal bilaterally to the bases. She has swollen lymph nodes that are tender in the left anterior chain. Differential diagnosis includes abscess versus worsening cellulitis versus deep space infection. Initial workup will be conducted with hematologic labs blood cultures CT scan soft tissue of the neck. Initial interventions include crystalloid bolus Dilaudid and patient had flushing with iodinated contrast but has had no anaphylaxis but and over abundance of caution we will premedicate prior to CT scan. Patient has also had 3 heart caths with no anaphylaxis as well.. Initial workup ordered and pending at the time of handoff to Dr. Eastman at 2200 hrs. Diallo: I assumed care of this patient very briefly. Patient was still in the ER after having been accepted by the hospitalist but the hospitalist had requested EKG be performed given patient's history of atrial fibrillation. I personally interpreted ECG which demonstrates normal sinus rhythm, rate 74, normal axis, normal AK and QTc, no STEMI, no arrhythmia. Patient is still stable and appropriate for admission to the hospitalist and was admitted in stable condition. <Zana Eastman MD - Last Filed: 03/20/25 09:56> Vital Signs: 03/19/25 20:06 03/19/25 21:00 03/19/25 22:01 Temperature 98.1 F Temperature Source Oral Pulse Rate 77 72 Pulse Rate [Right Radial] 78 Respiratory Rate 18 Blood Pressure 172/92 H 176/79 H Blood Pressure [Right Arm] 187/90 H Blood Pressure Mean Blood Pressure Mean [Right Arm] 122 Blood Pressure Source Blood Pressure Position Blood Pressure Position [Right Arm] Supine 02 Sat by Pulse Oximetry 97 97 93 L Oxygen Delivery Method Room Air 03/19/25 22:30 03/19/25 23:00 03/19/25 23:30 Temperature Temperature Source Pulse Rate 75 68 73 Pulse Rate [Right Radial] Respiratory Rate Blood Pressure 189/95 H 173/89 H 180/84 H Blood Pressure [Right Arm] Blood Pressure Mean Blood Pressure Mean [Right Arm] Blood Pressure Source Blood Pressure Position Blood Pressure Position [Right Arm] 02 Sat by Pulse Oximetry 93 L 92 L 89 L Oxygen Delivery Method 03/20/25 00:49 03/20/25 00:51 03/20/25 01:00 Temperature Temperature Source Pulse Rate 72 71 Pulse Rate [Right Radial] Respiratory Rate 16 Blood Pressure 147/77 H 147/77 H Blood Pressure [Right Arm] Blood Pressure Mean 94 Blood Pressure Mean [Right Arm] Blood Pressure Source Automatic Cuff Blood Pressure Position Sitting Blood Pressure Position [Right Arm] 02 Sat by Pulse Oximetry 93 L 93 L Oxygen Delivery Method Room Air Room Air Lab Data Lab Results 03/19/25 20:58: WBC 14.0 H, RBC 4.76, Hgb 14.6, Hct 43.6, MCV 91.6, MCH 30.7, MCHC 33.5, RDW 12.9, Plt Count 235, MPV 9.4, Neut % (Auto) 77.3, Lymph % (Auto) 11.2, Leake % (Auto) 7.1, Eos % (Auto) 3.6, Baso % (Auto) 0.4, Neut # (Auto) 10.8 H, Lymph # (Auto) 1.6, Leake # (Auto) 1.0, Eos # (Auto) 0.5 H, Baso # (Auto) 0.1, Sodium 136, Potassium 4.1, Chloride 95 L, Carbon Dioxide 29, Anion Gap 16.1 H, BUN 24 H, Creatinine 1.10 H, Estimated Creat Clear 33, Estimated GFR 48 L, Est GFR ( Amer) 58 L, Glucose 158 H, Calcium 10.1, Total Bilirubin 0.5, AST 24, ALT 16, Alkaline Phosphatase 105, C-Reactive Protein 16.8 H, Total Protein 8.2, Albumin 4.5, Globulin 3.7 H, Albumin/Globulin Ratio 1.2, Procalcitonin 0.067 Orders (Tests/Meds): ED MEDICATIONS Generic Name Dose Route Start Last Admin Trade Name Freq PRN Reason Stop Dose Admin Acetaminophen 650 mg 03/20/25 00:56 Acetaminophen 325mg Tab PO 04/19/25 00:55 Q4HP PRN Fever or Mild Pain (1-3) Hydrocodone Bitart/Acetaminophen 1 tab 03/20/25 01:39 Hydrocodone/Apap 5/325 Mg Tablet PO 04/19/25 01:38 Q6HP PRN Moderate to Severe Pain (4-10) Amlodipine Besylate 2.5 mg 03/20/25 09:00 Amlodipine 2.5mg Tablet PO 04/19/25 08:59 DAILY DEVAN Carvedilol 25 mg 03/20/25 09:00 Carvedilol 25mg Tablet PO 04/19/25 08:59 BID DEVAN Clopidogrel Bisulfate 75 mg 03/20/25 09:00 Clopidogrel 75mg Tab PO 04/19/25 08:59 DAILY DEVAN Dapagliflozin 10 mg 03/20/25 09:00 Dapagliflozin Propanediol 10 Mg Tablet PO 04/19/25 08:59 DAILY DEVAN Clindamycin Phosphate 600 mg in 50 mls @ 100 mls/hr 03/20/25 09:00 Clindamycin 600mg/50ml D5w Premix IV 03/30/25 08:59 Q8H [facility] Ceftriaxone Sodium 2 gm/ 100 mls @ 200 mls/hr 03/20/25 21:00 Sodium Chloride IV 03/30/25 20:59 Q24H [facility] Insulin Human Lispro 0 unit 03/20/25 06:00 03/20/25 05:36 Humalog 100 Units/Ml 10ml Vial ([facility]) SUBCUT 04/19/25 05:59 4 unit ACHS [facility] Administration Protocol Irbesartan 75 mg 03/20/25 09:00 Irbesartan 75mg Tablet PO 04/19/25 08:59 DAILY DEVAN Ketorolac Tromethamine 15 mg 03/20/25 00:56 Ketorolac 30mg/Ml Vial IV 03/25/25 00:55 Q6HP PRN Moderate Pain (4-6) Levalbuterol HCl 1.25 mg 03/20/25 01:19 Levalbuterol 1.25mg/3ml Neb IH 04/19/25 01:18 TIDP PRN Shortness Of Breath Levothyroxine Sodium 100 mcg 03/21/25 07:00 Levothyroxine 100mcg (0.1mg) Tab PO 04/20/25 06:59 DAILYDM DEVAN Metformin HCl 750 mg 03/20/25 21:00 Metformin 500mg Tablet PO 04/19/25 20:59 HS DEVAN Ondansetron HCl 4 mg 03/20/25 00:56 Ondansetron 4mg/2ml Vial IV 04/19/25 00:55 Q8HP PRN Nausea Pantoprazole Sodium 40 mg 03/20/25 21:00 Pantoprazole 40mg Tablet PO 04/19/25 20:59 HS DEVAN Sodium Chloride 10 ml 03/20/25 07:42 Sodium Chloride 0.9% 10ml Flush Syringe IV 04/19/25 07:41 NEEDED PRN Maintain IV Site Tetracycl/Hydrocort/Nystatin/Diphen 15 ml 03/20/25 09:00 Magic Mouthwash 300ml Bottle PO 04/19/25 08:59 QID DEVAN Venlafaxine HCl 112.5 mg 03/20/25 09:00 Venlafaxine 37.5mg Tablet PO 04/19/25 08:59 DAILY DEVAN Discontinued Medications Generic Name Dose Route Start Last Admin Trade Name Freq PRN Reason Stop Dose Admin Diphenhydramine HCl 50 mg 03/19/25 20:32 03/19/25 20:55 Diphenhydramine 50mg/Ml Vial IV 03/19/25 20:33 50 mg ONCE ONE Administration Hydromorphone HCl 0.5 mg 03/19/25 21:34 03/19/25 21:47 Hydromorphone 2mg/Ml Syringe IV 03/19/25 21:35 0.5 mg ONCE ONE Administration Sodium Chloride 1,000 mls @ 999 mls/hr 03/19/25 20:26 03/19/25 20:47 Sod Chlor 0.9% 1000ml Bag IV 03/19/25 21:26 999 mls/hr .Q1H1M ONE Administration Sodium Chloride 1,000 mls @ 999 mls/hr 03/19/25 20:32 03/19/25 20:47 Sod Chlor 0.9% 1000ml Bag IV 03/19/25 21:32 999 mls/hr .Q1H1M ONE Administration Clindamycin Phosphate 600 mg in 50 mls @ 100 mls/hr 03/20/25 00:30 03/20/25 00:47 Clindamycin 600mg/50ml D5w Premix IV 03/30/25 00:29 100 mls/hr Q8H DEVAN Administration Ceftriaxone Sodium 1 gm/ 50 mls @ 100 mls/hr 03/20/25 01:15 03/20/25 01:55 Sodium Chloride IV 03/30/25 01:14 100 mls/hr Q12H DEVAN Administration Iopamidol 150 ml 03/19/25 21:43 03/19/25 21:45 Iopamidol-370 (76%);100ml Bottle IV 03/19/25 21:44 150 ml ONCE ONE Administration Methylprednisolone Sodium Succinate 80 mg 03/19/25 20:32 03/19/25 20:55 Methylprednisolone Sod Succ 125mg Vial IV 03/19/25 20:33 80 mg ONCE ONE Administration Non-Formulary Medication 800 mg 03/20/25 09:00 Magnesium Aspart,Citrate,Oxide PO 04/19/25 08:59 DAILY DEVAN Sodium Chloride 10 ml 03/19/25 21:43 03/19/25 21:44 Sodium Chloride 0.9% 10ml Syr (Rad Only) IV 04/18/25 21:42 10 ml NEEDED PRN Administration Maintain IV Site ORDERS Category Date Time Status CT facial bones w con Stat Cat Scan 03/19/25 20:[address] soft tissue neck w con Stat Cat Scan 03/19/25 20:26 Completed CBC w/Auto Diff [Complete Blood Count Auto Diff] Stat Lab 03/19/25 20:58 Completed CMP [Comprehensive Metabolic Panel] Stat Lab 03/19/25 20:58 Completed CRP [C-Reactive Protein] Stat Lab 03/19/25 20:58 Completed Procalcitonin Stat Lab 03/19/25 20:58 Completed Blood Culture Stat Micro 03/19/25 21:11 Received EKG Request [ECG Request] Stat Y 03/20/25 00:49 Ordered Medical Decision Narrative: In summary patient is a 75-year-old female who presents to the emergency department for evaluation of left lower facial swelling and dental pain. Patient is hypertensive on arrival with a blood pressure of 187/90 pulse is a 78 with sinus rhythm on the bedside monitor breathing 18 times a minute satting at 97% on room air upon arrival, afebrile at 90.1. Physical exam is remarkable for significant swelling in the left side of her mandible that is markedly protruding. There is redness. There is firmness and fluctuance. Examination of the oral mucosa reveals no woody floor the mouth no Tyler angina. She does have bulging in the left buccal recess but I do not see any obvious abscess. Posterior pharynx is patent with no evidence of occlusion voice is normal with normal phonation. Patient has no stridor breath sounds Equal bilaterally to the bases. She has swollen lymph nodes that are tender in the left anterior chain. Differential diagnosis includes abscess versus worsening cellulitis versus deep space infection. Initial workup will be conducted with hematologic labs blood cultures CT scan soft tissue of the neck. Initial interventions include crystalloid bolus Dilaudid and patient had flushing with iodinated contrast but has had no anaphylaxis but and over abundance of caution we will premedicate prior to CT scan. Patient has also had 3 heart caths with no anaphylaxis as well.. Initial workup ordered and pending at the time of handoff to Dr. Eastman at 2200 hrs. Zana Eastman MD Thus far, patient's workup significant for leukocytosis. Physical exam performed by me shows significant amount of swelling, redness and tenderness over the anterior left jaw. Uvula is midline. No hoarseness or muffling of the voice. She is maintaining her airway appropriately. Patient feels a fullness in the left side of her neck as well but no palpable fluctuance or induration in this area. Family has a picture of what the area look like this morning and it does appear significantly more swollen and red compared to that time. Due to concern for developing abscess/phlegmon/NSTI, agree with pursuing CT imaging to further investigate. CT of the face as well as CT soft tissue neck with IV contrast were ordered. These were interpreted by me personally. No ruminating fluid collection was appreciated. There is swelling to the area consistent with cellulitis, however no gas to suggest necrotizing infection. Given rapidly progressing nature of patient's infection, is felt that she will need IV antibiotics over the next day or 2 to ensure that the infection does not worsen as she has already trialed oral antibiotics without improvement. 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 She also reports a cephalosporin allergy. Patient was started on IV clindamycin here in the emergency department. I did discuss patient's case with the hospitalist, VANIA Tay, who agreed to admit the patient. On his evaluation, he stated that she had taken Keflex before and plan on starting her on this as well. He asked to obtain EKG as she has had a history of A-fib before. Will order EKG at this time. Diallo: I assumed care of this patient very briefly. Patient was still in the ER after having been accepted by the hospitalist but the hospitalist had requested EKG be performed given patient's history of atrial fibrillation. I personally interpreted ECG which demonstrates normal sinus rhythm, rate 74, normal axis, normal AK and QTc, no STEMI, no arrhythmia. Patient is still stable and appropriate for admission to the hospitalist and was admitted in stable condition. Critical Care <HEIDI Garcia - Last Filed: 03/19/25 22:00> Critical Care Time Critical Care Time: Yes Attestation: On 03/19/25, the high probability of a clinically significant, sudden or life threatening deterioration of the following system(s) required my full and direct attention, intervention and personal management. The time I documented below is in addition to time spent performing reported procedures but includes the following listed in this critical care notation. Total Time Total Critical Care Time: 30
--- NOTE | 2025-03-19 20:26 | CT_ITS ---
PROCEDURE INFORMATION: Exam: CT Neck With Contrast Exam date and time: 03/19/2025 9:43 PM Age: 75 years old Clinical indication: Other: Swelling; Additional info: Left-sided mandibular swelling and pain TECHNIQUE: Imaging protocol: Computed tomography of the neck with contrast. Radiation optimization: All CT scans at this facility use at least one of these dose optimization techniques: automated exposure control; mA and/or kV adjustment per patient size (includes targeted exams where dose is matched to clinical indication); or iterative reconstruction. Contrast material: ISOVUE; Contrast volume: 75 ml; Contrast route: IV; COMPARISON: CT CERVICAL SPINE WO CON 02/27/2020 12:13 PM FINDINGS: Paranasal sinuses: Air-fluid level is present in the sphenoid sinuses Salivary glands: Normal. Glands are normal in size. Pharynx: Unremarkable. No significant tonsillar enlargement. Larynx: Unremarkable. Epiglottis is normal. Thyroid: Normal. No enlarged or calcified nodules. Trachea: Visualized trachea is unremarkable. Lungs: Unremarkable as visualized. Lymph nodes: Unremarkable. No lymphadenopathy. Bones/joints: Unremarkable. No acute fracture. Soft tissues: Diffuse subcutaneous fat stranding over the left mandible Other findings: There is no well-defined fluid collection IMPRESSION: 1. Left facial cellulitis without defined rim enhancing fluid collection 2. Sphenoid sinusitis
--- NOTE | 2025-03-19 20:34 | CT_ITS ---
PROCEDURE INFORMATION: Exam: CT Maxillofacial With Contrast Exam date and time: 03/19/2025 9:38 PM Age: 75 years old Clinical indication: Other: Swelling; Additional info: Left jaw/neck swelling TECHNIQUE: Imaging protocol: Computed tomography of the face with contrast. Radiation optimization: All CT scans at this facility use at least one of these dose optimization techniques: automated exposure control; mA and/or kV adjustment per patient size (includes targeted exams where dose is matched to clinical indication); or iterative reconstruction. Contrast material: ISOVUE; Contrast volume: 75 ml; Contrast route: IV; COMPARISON: CT FACIAL BONES WO CON 02/27/2020 12:16 PM FINDINGS: Paranasal sinuses: Air-fluid level is present in the sphenoid sinuses Orbital cavities: Orbits are normal. Globes are unremarkable. Bones: Nasal bone fractures are old and were seen on the previous 2019 examination Soft tissues: Unremarkable. IMPRESSION: 1. Fold nasal bone fractures 2. Sphenoid sinusitis 3. No definite rim enhancing fluid collection.
[2025-03-19] MEDS: 0.9 % SODIUM CHLORIDE 1000ML 1,000 ML 999 ML IV ×2 (20:47)
[2025-03-19] MEDS: METHYLPREDNISOLONE SOD SUCC 125MG VIAL 80 MG IV (20:55)
[2025-03-19 21:00] VITALS: BP 172/92; PULSE 77; O2SAT 97
[2025-03-19 21:07] LABS: Hematocrit 43.6 % (37.0-47.0); Hemoglobin 14.6 g/dL (12.2-16.2); Immature Granulocytes % 0.4 %; Mean Corpuscular HGB Conc 33.5 g/dL (31.8-35.4); Mean Corpuscular Hemoglobin 30.7 pg (27.0-31.2); Mean Corpuscular Volume 91.6 fl (81-99); Nucleated Red Blood Cells % 0 %; Platelet Count 235 K/mm3 (142-424); Red Blood Count 4.76 M/mm3 (4.20-5.40); Red Cell Distribution Width-SD 42.9 fL; White Blood Count 14.0 K/mm3 (4.8-10.8)
[2025-03-19 21:20] LABS: Albumin Level 4.5 g/dl (3.5-5.0); Chloride 95 mmol/L (98-107); Potassium 4.1 mmoL/L (3.5-5.1); Sodium 136 mmol/L (136-145)
[2025-03-19 21:23] LABS: Alanine Aminotransferase 16 U/L (12-78); Albumin/Globulin Ratio 1.2 (1.1-1.8); Alkaline Phosphatase 105 U/L (38-126); Anion Gap 16.1 mEq/L (5-15); Aspartate Amino Transferase 24 U/L (14-36); Bilirubin,Total 0.5 mg/dl (0.2-1.3); Blood Urea Nitrogen 24 mg/dl (7-17); Carbon Dioxide 29 mmol/L (22.0-30.0); Creatinine Clearance Estimated 33 mL/min (50-200); Creatinine,Serum 1.10 mg/dl (0.52-1.04); Estimated Glomerular Filt Rate 48 ml/min (>60); GFR (African American) 58 ML/MIN (>60); Globulin 3.7 g/dL (1.3-3.2); Total Protein,Serum 8.2 g/dl (6.3-8.2)
[2025-03-19 21:24] LABS: Calcium 10.1 mg/dl (8.4-10.2); Glucose 158 mg/dl (74-100)
[2025-03-19 21:28] LABS: C-Reactive Protein 16.8 mg/L (0-4)
[2025-03-19] MEDS: SODIUM CHLORIDE 0.9% 10ML SYR (RAD ONLY) 10 ML IV (21:44)
[2025-03-19] MEDS: IOPAMIDOL-370 (76%);100ML BOTTLE 150 ML IV (21:45)
[2025-03-19] MEDS: HYDROMORPHONE 2MG/ML SYRINGE 0.5 MG IV (21:47)
[2025-03-19 21:51] LABS: Procalcitonin 0.067 ng/mL (0.0-2.0)
[2025-03-19 22:01] VITALS: BP 176/79; PULSE 72; O2SAT 93
[2025-03-19 22:30] VITALS: BP 189/95; PULSE 75; O2SAT 93
[2025-03-19 23:00] VITALS: BP 173/89; PULSE 68; O2SAT 92
[2025-03-19 23:30] VITALS: BP 180/84; PULSE 73; O2SAT 89
[2025-03-20] VITALS (8 sets, daily range): BP systolic 120–147; BP diastolic 65–77; PULSE 68–78; RESP 16–18; TEMP 36.4–37.1; O2SAT 93–95; BMI 47.2
[2025-03-20] MEDS: CLINDAMYCIN PHOSPHATE/D5W 600 MG/50 ML PIGGYBACK 100 MG IV ×3 (00:47→16:33)
--- NOTE | 2025-03-20 00:49 | ECG_ITS ---
APPROVED REPORT Exam: Resting ECG HR:74 bpm ECG Measurements Heart Rate 74 AXES MN 206 P 81 QRSd 86 QRS 69 QT 348 T 89 QTc 376 Conclusion SINUS RHYTHM NONSPECIFIC T-WAVE ABNORMALITY No STEMI Electronically signed by : MARIA ANTONIA ESPINO, 03/20/2025 23:01:43
--- NOTE | 2025-03-20 00:52 | PC.NURSE ---
Report called to Usha Figueroa RN.
--- NOTE | 2025-03-20 01:25 | P.HP_ITS ---
<Statement entered by Luis Case MD - 03/20/25 16:16> Personally evaluated patient and agree with plan of care as outlined by the [employer]. History of Present Illness *Admission Date: 03/20/25 *Reason for visit:: Dental abscess facial cellulitis *History of present illness: That the patient has come back to the ER after being seen a few days earlier. She noted she has bridges on her teeth but never having any problems last Reymundo began to have trouble came to the emergency room put on clindamycin. She was able to take that medication but it was not improving had severe facial pain with swelling and redness to the leftside of the chin upwards to the lower jaw on the left. She has come in tonight being on clindamycin because of her's anaphylactic reaction to penicillin. Also does not tolerate sulfa drugs. Patient verbally stated she is able to take cephalosporins. Patient states at present her pain is much improved, that the pain medicine given in the ER has helped. Patient is also receiving a dose of IV clindamycin at this time. CT scan did not show an abscess that needs to be drained., But due to the pain and the increasing nature of this infection we will go ahead and admit I will continue the clindamycin as it may not have had time to work or oral he was not absorbing. But will add Rocephin 1 g every 12 hours with the clindamycin. In reviewing the patient records see that she is also on CPAP actually in 2019 she was at this hospital and intubated, notes a history of COPD stop smoking 20 years ago. Diabetes mellitus with what she is calling her average fingerstick blood sugars around 140. States she is not insulin-dependent at present time. Review of records shows PFT that the lady has lungs that are 89 years and age. Proximately between 60 to 70% of predicted value on the PFT. Patient noted a history as a child of several episodes of pneumonia and asthma. Did smoke for a period of time but stopped 20 years ago. [facility] Disclaimer: The information contained in this section may have been updated after the patient was seen, as this information can be updated by other users. 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 Nasal fracture Pleural effusion Severe sepsis with acute organ dysfunction Acute respiratory distress syndrome (ARDS) Septic shock Hyperglycemia Dyspnea Dependent edema Mixed acid base balance disorder Hypercapnia Acute on chronic respiratory failure with hypoxemia COPD exacerbation Acute respiratory failure Abnormal electrocardiogram [ECG] [EKG] Prediabetes Palpitations Chest pressure Abnormal result of cardiovascular function study CAD (coronary atherosclerotic disease) Palpitations Atypical angina Hyperlipidemia Hypertension Diastolic dysfunction Surgical History H/O heart artery stent Status post renal artery angioplasty Family History Other No significant family history Social History Smoking Status: Former smoker how long ago did patient quit smokin years ago alcohol intake: never substance use type: denies use current occupational status: other Travel in the last 8 weeks?: None household members: other housing: other Other 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 Have you received the Flu Vaccine for this season: Yes Have you received the Pneumonia Vaccine: Yes Review of Systems Review of Systems Review of systems:: pertinent systems reviewed and negative unless documented below Constitutional Constitutional: Reports as per HPI Eyes Eyes: Reports as per HPI ENT Ears, Nose, Mouth, and Throat: Reports as per HPI, Reports dental pain and Reports mouth lesions *Cardiovascular Cardiovascular: Reports as per HPI *Respiratory Respiratory: Reports as per HPI *Gastrointestinal Gastrointestinal: Reports as per HPI *Genitourinary Genitourinary: Reports as per HPI *Musculoskeletal Musculoskeletal: Reports as per HPI Integumentary/Breasts Skin/Breast: Reports as per HPI and Reports new lesions (Facial cellulitis chin to left lower gum) *Neurologic Neurologic: Reports as per HPI Psychiatric Psychiatric: Reports as per HPI Endocrine Endocrine: Reports as per HPI Hematologic/Lymphatic Hematologic/Lymphatic: Reports as per HPI Allergic/Immunologic Allergic/Immunologic: Reports as per HPI Meds Home Medications and Allergies Home Medications ?Medication ?Instructions ?Recorded ?Confirmed ?Type ascorbate calcium (vitamin C) 500 500 mg PO DAILY 05/0803/20/25 History mg tablet atorvastatin 40 mg tablet 40 mg PO HS 05/22/22 5 History cholecalciferol (vitamin D3) 50 50 mcg PO DAILY 03/20/25 History mcg (2,000 unit) capsule levothyroxine 100 mcg tablet 100 mcg PO DAILY 05/22/22 03/20/25 History losartan 50 mg tablet 50 mg PO DAILY 05/22/2203/07 History zinc 1 tab PO DAILY 05/22/2203/07 History clopidogrel 75 mg tablet (Plavix) 75 mg PO DAILY #30 t abs 07/01/22 03/20/25 Rx pantoprazole 40 mg tablet,delayed 40 mg PO DAILY #30 t abs 07/01/22 03/20/25 Rx release (Protonix) carvedilol 25 mg tablet 25 mg PO BID 03/03/24 History magnesium aspart,citrate,oxide 800 mg PO DAILY 4 03/20/25 History amlodipine 2.5 mg tablet (Norvasc) 2.5 mg PO DAILY #90 tabs 12/23/24 03/20/25 Rx clindamycin HCl 150 mg capsule 450 mg PO TID 03/20/25 03/20/25 History dapagliflozin propanediol 10 mg 10 mg PO DAILY 5 03/20/25 History tablet (Farxiga) hydrocodone 5 mg-acetaminophen 325 1 tab PO Q8H PRN PA IN 03/20/25 03/20/25 History mg tablet metformin 750 mg tablet,extended 750 mg PO HS 03/20/25 03/20/25 History release 24 hr nitrofurantoin 100 mg PO DAILY 03/20/25 History monohydrate/macrocrystals 100 mg capsule triamterene 37.5 1 cap PO DAILY 03/20/2503/07 History mg-hydrochlorothiazide 25 mg capsule triamterene 37.5 1 cap PO DAILY 03/20/2503/07 History mg-hydrochlorothiazide 25 mg capsule venlafaxine 100 mg tablet 100 mg PO DAILY 03/20/25 History New Prescriptions to Start Prescriptions: Allergies Allergy/AdvReac Type Severity Reaction Status Date / [facility] Verified 10/11/24 14:36 codeine Allergy Verified 10/11/24 14:36 Gadolinium-Containing Allergy Verified 10/11/24 14:36 Contrast Medi Iodinated Contrast Media Allergy Verified 10/11/24 14:36 Penicillins Allergy Verified 10/11/24 14:36 Sulfa (Sulfonamide Allergy Verified 10/11/24 14:36 Antibiotics) sulfamethoxazole (From Allergy Verified 10/11/24 14:36 Bactrim) trimethoprim (From Bactrim) Allergy Verified 10/11/24 14:36 Exam Data for Last 24 hours Vital signs and Labs for Last 24 Hours: Temp Pulse Resp BP Pulse Ox O2 Del Method 98.8 F 71 17 144/77 H 93 L Room Air 03/20/25 01:09 03/20/25 01:09 03/20/25 01:09 03/20/25 01:03/20/25 01:09 03/20/25 01:09 Laboratory Results - last 24 hr 03/19/25 20:58: WBC 14.0 H, RBC 4.76, Hgb 14.6, Hct 43.6, MCV 91.6, MCH 30.7, MCHC 33.5, RDW 12.9, Plt Count 235, MPV 9.4, Neut % (Auto) 77.3, Lymph % (Auto) 11.2, Becker % (Auto) 7.1, Eos % (Auto) 3.6, Baso % (Auto) 0.4, Neut # (Auto) 10.8 H, Lymph # (Auto) 1.6, Becker # (Auto) 1.0, Eos # (Auto) 0.5 H, Baso # (Auto) 0.1, Sodium 136, Potassium 4.1, Chloride 95 L, Carbon Dioxide 29, Anion Gap 16.1 H, BUN 24 H, Creatinine 1.10 H, Estimated Creat Clear 33, Estimated GFR 48 L, E st GFR ( Amer) 58 L, Glucose 158 H, Calcium 10.1, Total Bilirubin 0.5, AST 24, ALT 16, Alkaline Phosphatase 105, C-Reactive Protein 16.8 H, Total Protein 8.2, Albumin 4.5, Globulin 3.7 H, Albumin/Globulin Ratio 1.2, Procalcitonin 0.067 I & O for Last 24 hours: Intake & Output 03/17/25 03/18/25 03/19/25 03/20/25 05:59 05:59 05:59 05:59 Weight 250 lb Radiology Reports for the Last 24 Hours: Left facial cellulitis without defined rim enhancing fluid collection 2. Sphenoid sinusitis Constitutional Constitutional: mild distress, obese and cooperative Comments: Pain in good control with medication *Routine HEENT Exam Head: Present normocephalic and atraumatic Eye: Present EOMI and PERRL ENT: Present mucous membranes moist Comments: Lower gum swollen bridge with bulging to both DDL and lateral side of left lower gum line *Routine Neck Exam Neck: Present supple *Routine Respiratory Exam Respiratory: Present CTA bilaterally, normal respiratory effort and able to speak in complete sentences *Routine Cardiovascular Exam Cardiovascular: Present RRR, Normal S1 and Normal S2 *Routine Abdominal Exam Abdominal: Present soft and normoactive bowel sounds Comments: No tenderness *Routine Rectal Exam Rectal:: deferred *Routine Genitalia Exam Genitalia:: deferred *Routine Extremities Exam Comments: Moves all extremities well *Routine Skin Exam Skin: Present intact, erythema and warm Comments: Left side of face from left side of chin up to the lower dental line on the left, swelling redness edema *Routine Neurological Exam Neurological: Present alert, oriented X3, normal tone, vision grossly intact, hearing grossly intact and normal speech Routine Psychiatric Exam Psychiatric: Present normal affect Detailed ENT Exam Mouth image: 2 1. 2. H&P: Result Impressions Dental abscess left lower jawline affecting area under 3 teeth Not improving with oral clindamycin continues with facial pain Imaging and Cardiology Neck: Status: image reviewed by me Additional comments: Left facial cellulitis without defined rim enhancing fluid collection 2. Sphenoid sinusitis Assessment and Plan *Assessment and plan (1) Cellulitis: Status: Acute Qualifiers: Site of cellulitis: face Qualified Code(s): L03.211 - Cellulitis of face Category: Medical Code(s): L03.90 - Cellulitis, unspecified (2) Periodontal abscess: Status: Acute Category: Medical Code(s): K05.219 - Aggressive periodontitis, localized, unspecified severity (3) Pain, dental: Status: Acute Category: Medical Code(s): K08.89 - Other specified disorders of teeth and supporting structures (4) Gingivitis: Status: Acute Category: Medical Code(s): K05.10 - Chronic gingivitis, plaque induced Plan 1. Due to the extent that cellulitis is is expanding and the increased swelling to the gum with patient having an antibiotic allergies we will go ahead and place the patient into the hospital for IV antibiotic. Patient had been on clindamycin oral may not be absorbing well or not have had time to work., Patient has penicillin allergy so she could not use Augmentin. Patient states she is able to take cephalosporins without problems. Will continue clindamycin IV and add Rocephin IV. Plan to see if this will improve facial cellulitis and gum and then would be able to discharge the patient on oral antibiotics preferably an oral cephalosporin. Then have the patient follow-up with a dentist to evaluate gum under the bridge on the left side making sure there is not a foreign body wedged under that causing this problem. 2. Will have nursing staff check with patient if she needs CPAP for tonight. Has a history in the past in 2019 of having intubation due to respiratory failure
[2025-03-20] MEDS: CEFTRIAXONE 1 GM 1 GM in 0.9 % SODIUM CHLORIDE 50 ML IV (01:55)
--- NOTE | 2025-03-20 02:15 | PC.WOUNDNOTE ---
Left side of jaw swollen swollen and brusing to left side of mouth
--- NOTE | 2025-03-20 02:18 | PC.NURSE ---
Pt states that she has sleep apnea however admits that she dose no use a CPAP @ home.
[2025-03-20 05:34] LABS: POC Glucose,Bedside 247 (70-110)
[2025-03-20] MEDS: humaLOG 100 UNITS/ML 10ML VIAL (SSI) SUBCUT ×4 (05:36→21:18)
[2025-03-20 09:29] LABS: Magnesium 1.2 mg/dl (1.6-2.3)
--- NOTE | 2025-03-20 09:50 | P.PN_ITS ---
Subjective *Date: 03/20/25 *Time: 11:23 Interval history: Patient sitting up in bed, no complaints this morning. States she feels much better, swelling is down in the left side of her face. She states that she did require IV pain medication in the night, but right now she only rates it 3/10. Medical Exam Vital signs and Labs for Last 24 Hours: Vital Signs Temp Pulse Pulse Resp BP BP Pulse Ox 03/20/25 09:00 03/20/25 08:00 97.7 F 78 16 129/65 94 L 03/20/25 06:54 03/20/25 05:00 03/20/25 03:00 03/20/25 01:31 97.6 F 72 16 147/77 H 03/20/25 01:12 03/20/25 01:09 98.8 F 71 17 144/77 H 93 L 03/20/25 01:03 98.8 F 77 17 144/77 H 03/20/25 01:00 03/20/25 00:51 71 147/77 H 93 L 03/20/25 00:49 72 16 147/77 H 93 L 03/19/25 23:30 73 180/84 H 89 L 03/19/25 23:00 68 173/89 H 92 L 03/19/25 22:30 75 189/95 H 93 L 03/19/25 22:01 72 176/79 H 93 L 03/19/25 21:00 77 172/92 H 97 03/19/25 20:06 98.1 F 78 18 187/90 H 97 O2 Del Method 03/20/25 09:00 Room Air 03/20/25 08:00 Room Air 03/20/25 06:54 Room Air 03/20/25 05:00 Room Air 03/20/25 03:00 Room Air 03/20/25 01:31 Room Air 03/20/25 01:12 Room Air 03/20/25 01:09 Room Air 03/20/25 01:03 03/20/25 01:00 Room Air 03/20/25 00:51 Room Air 03/20/25 00:49 03/19/25 23:30 03/19/25 23:00 03/19/25 22:30 03/19/25 22:01 03/19/25 21:00 03/19/25 20:06 Room Air Intake and Output 03/19/25 03/20/25 03/20/25 23:59 07:59 15:59 Intake Total 300 / 300 Output Total 0 / 0 Balance 0 / 300 300 / 300 Intake: Intake, Oral Amount 300 / 300 Output: Output, Urine Amount 0 / 0 Other: Number of Unmeasured Voids 0 Weight 113.398 kg 113.398 kg Patient Weight 03/20/25 23:59 Weight 113.398 kg Laboratory Results - last 24 hr 03/19/25 20:58: WBC 14.0 H, RBC 4.76, Hgb 14.6, Hct 43.6, MCV 91.6, MCH 30.7, MCHC 33.5, RDW 12.9, Plt Count 235, MPV 9.4, Neut % (Auto) 77.3, Lymph % (Auto) 11.2, [place] % (Auto) 7.1, Eos % (Auto) 3.6, Baso % (Auto) 0.4, Neut # (Auto) 10.8 H, Lymph # (Auto) 1.6, [place] # (Auto) 1.0, Eos # (Auto) 0.5 H, Baso # (Auto) 0.1, Sodium 136, Potassium 4.1, Chloride 95 L, Carbon Dioxide 29, Anion Gap 16.1 H, BUN 24 H, Creatinine 1.10 H, Estimated Creat Clear 33, Estimated GFR 48 L, Est GFR ( Amer) 58 L, Glucose 158 H, Calcium 10.1, Total Bilirubin 0.5, AST 24, ALT 16, Alkaline Phosphatase 105, C-Reactive Protein 16.8 H, Total Protein 8.2, Albumin 4.5, Globulin 3.7 H, Albumin/Globulin Ratio 1.2, Procalcitonin 0.067 03/20/25 05:25: POC Glucose 247 H 03/20/25 09:09: Magnesium 1.2 L I & O for Labs for Last 24 Hours: Intake & Output 03/17/25 03/18/25 03/19/25 03/20/25 23:59 23:59 23:59 23:59 Intake Total 300 / 300 Output Total 0 / 0 Balance 300 / 300 Weight 113.398 kg 113.398 kg Constitutional: Present no acute distress, morbidly obese and cooperative Head: Present atraumatic Eyes: Present as per HPI ENT: Present normal exam Neck: Present normal inspection and full ROM Respiratory: Present CTA bilaterally, normal respiratory effort, able to speak in complete sentences and symmetric chest movement Cardiac: Present Reg Rate and Rhythm GI: Present soft and normal bowel sounds; Absent distention or tenderness Rectal (female): Present deferred (female): Present deferred Extremities: Present normal inspection and full ROM Skin: Present intact and dry Neuro: Present alert, awake and oriented x 3 Assessment and Plan *Assessment and plan (1) Cellulitis: Status: Acute Qualifiers: Site of cellulitis: face Qualified Code(s): L03.211 - Cellulitis of face Category: Medical Code(s): L03.90 - Cellulitis, unspecified (2) Pain, dental: Status: Acute Category: Medical Code(s): K08.89 - Other specified disorders of teeth and supporting structures (3) Gingivitis: Status: Acute Category: Medical Code(s): K05.10 - Chronic gingivitis, plaque induced (4) Hypomagnesemia: Status: Acute Category: Medical Code(s): E83.42 - Hypomagnesemia (5) Hyperlipidemia: Status: Acute Qualifiers: Hyperlipidemia type: mixed hyperlipidemia Qualified Code(s): E78.2 - Mixed hyperlipidemia Category: Medical Code(s): E78.5 - Hyperlipidemia, unspecified (6) Obesity: Status: Acute Qualifiers: Body mass index: BMI 45.0-49.9 Obesity classification: adult class 3 (BMI >= 40) Obesity type: due to excess calories Serious obesity comorbidity presence: with serious comorbidity Qualified Code(s): E66.01 - Morbid (severe) obesity due to excess calories; Z68.42 - Body mass index (BMI) 45.0-49.9, adult Category: Medical Code(s): E66.9 - Obesity, unspecified (7) H/O heart artery stent: Status: Acute Category: Surgical Code(s): Z95.5 - Presence of coronary angioplasty implant and graft (8) Hypothyroidism: Status: Acute Category: Medical Code(s): E03.9 - Hypothyroidism, unspecified (9) Hypertension: Status: Acute Qualifiers: Hypertension type: primary hypertension Qualified Code(s): I10 - Essential (primary) hypertension Category: Medical Code(s): I10 - Essential (primary) hypertension Plan Ms. Lester?pack is a 75-year-old female who presented to the emergency department yesterday morning with complaints of swelling and pain in her left jaw. She was given antibiotics and pain medication and discharged home. She returned to the ER yesterday evening with worsening pain, and swelling. She does deny fever, difficulty swallowing, shortness of breath. Patient does have a primary medical history of hypertension, hyperlipidemia, coronary artery disease, hypothyroidism, diabetes mellitus, GERD, anxiety, depression, morbid obesity BMI 47. Hospital medicine was consulted for admission for pain control, IV antibiotics, and further monitoring. Plan of care as follows: #Cellulitis, left mandible #Pain, dental #Gingivitis ?Patient states she feels much better today, swelling and pain have decreased significantly. She is receiving clindamycin 600 mg every 8 and ceftriaxone 2 g daily. ?She has [place] 5/325 mg and Toradol 30 mg as needed for pain. Monitoring for toxicity. ?Patient has a lengthy list of medication allergies including ciprofloxacin, IV contrast, penicillin, sulfa, trimethoprim. ?Patient did have mild leukocytosis, WBC 14.0. Will continue to trend. ?Soft tissue neck CT showed left facial cellulitis without defined rim-enhancing fluid collection. ?Assessment does not reveal any obvious abscess, drainage. ?CMP, CBC, magnesium ordered for the a.m. #Hypomagnesemia ?Patient's magnesium 1.2. Will replace per protocol. ?Will monitor magnesium in the a.m. #Hyperlipidemia #Hypothyroidism #Hypertension #History of heart stent ?Restart home medication try to remain HCTZ 1 daily, losartan 50 mg daily, Farxiga 10 mg daily, clopidogrel 75 mg daily, carvedilol 25 mg twice daily, atorvastatin 40 mg at bedtime, amlodipine 2.5 mg daily. #Diabetes mellitus ? Sliding scale insulin, ACHS fingersticks ? Diabetic diet ? A1c pending #Obesity ?Morbid obesity complicates all aspects of care. ?BMI 47.2. Full code Diabetic diet VTE?Lovenox 40 mg subcu Ambulate as tolerated
[2025-03-20] MEDS: AMLODIPINE 2.5MG TABLET 2.5 MG PO (10:18)
[2025-03-20] MEDS: CARVEDILOL 25MG TABLET 25 MG PO ×2 (10:18→21:04)
[2025-03-20] MEDS: VENLAFAXINE 37.5MG TABLET 112.5 MG PO (10:18)
[2025-03-20] MEDS: DAPAGLIFLOZIN PROPANEDIOL 10 MG TABLET PO (10:18)
[2025-03-20] MEDS: IRBESARTAN 75MG TABLET 75 MG PO (10:18)
[2025-03-20] MEDS: CLOPIDOGREL 75MG TAB 75 MG PO (10:18)
[2025-03-20] MEDS: MAGIC MOUTHWASH 300ML BOTTLE 15 ML PO ×4 (10:19→21:05)
[2025-03-20] MEDS: MAGNESIUM SULFATE IN WATER 2 GM/50 ML PIGGYBACK IV ×3 (11:42→12:57)
--- NOTE | 2025-03-20 12:23 | HMH.PHAINT1 ---
Pharmacy Intervention Comments: MEDICATION RECONCILIATION COMPLETED ON PATIENT USING EXTERNAL FILL HISTORY FROM PHARMACY. -JOSÉ MANUEL MOURA, SHARYND
[2025-03-20 12:25] LABS: POC Glucose,Bedside 238 (70-110)
[2025-03-20 12:31] LABS: Hemoglobin A1C 9.0 % (4.0-6.0)
[2025-03-20 16:48] LABS: POC Glucose,Bedside 196 (70-110)
--- NOTE | 2025-03-20 17:40 | PC.NURSE ---
pt resting supine in bed. no complaints of pain this shift. abx given per nov. magic mouthwash also given per nov. mag replaced per protocol. no needs at this time. call light within reach.
[2025-03-20] MEDS: METFORMIN 500MG TABLET 750 MG PO (21:04)
[2025-03-20] MEDS: PANTOPRAZOLE 40MG TABLET 40 MG PO (21:04)
[2025-03-21] MEDS: CLINDAMYCIN PHOSPHATE/D5W 600 MG/50 ML PIGGYBACK 100 MG IV ×2 (01:00→08:14)
[2025-03-21 04:00] VITALS: BP 121/65; PULSE 65; RESP 16; TEMP 36.5; O2SAT 92; BMI 45.3
--- NOTE | 2025-03-21 04:17 | PC.NURSE ---
v/s, ox4, RA. Pt tolerated IV ABX. No acute events to report. Possible D/c today. plan of care ongoing.
[2025-03-21 06:43] LABS: POC Glucose,Bedside 135 (70-110)
[2025-03-21] MEDS: LEVOTHYROXINE 100MCG (0.1MG) TAB 100 MCG PO (06:46)
[2025-03-21 08:00] VITALS: BP 122/71; PULSE 61; RESP 16; TEMP 36.6; O2SAT 96
[2025-03-21] MEDS: CARVEDILOL 25MG TABLET 25 MG PO (08:12)
[2025-03-21] MEDS: DAPAGLIFLOZIN PROPANEDIOL 10 MG TABLET PO (08:12)
[2025-03-21] MEDS: AMLODIPINE 2.5MG TABLET 2.5 MG PO (08:12)
[2025-03-21] MEDS: CLOPIDOGREL 75MG TAB 75 MG PO (08:12)
[2025-03-21] MEDS: VENLAFAXINE 37.5MG TABLET 112.5 MG PO (08:13)
[2025-03-21] MEDS: ACETAMINOPHEN 325MG TAB 650 MG PO (08:14)
[2025-03-21] MEDS: MAGIC MOUTHWASH 300ML BOTTLE 15 ML PO (08:14)
[2025-03-21 08:37] LABS: Hematocrit 39.3 % (37.0-47.0); Hemoglobin 12.8 g/dL (12.2-16.2); Immature Granulocytes % 0.4 %; Mean Corpuscular HGB Conc 32.6 g/dL (31.8-35.4); Mean Corpuscular Hemoglobin 30.5 pg (27.0-31.2); Mean Corpuscular Volume 93.8 fl (81-99); Nucleated Red Blood Cells % 0 %; Platelet Count 206 K/mm3 (142-424); Red Blood Count 4.19 M/mm3 (4.20-5.40); Red Cell Distribution Width-SD 45.7 fL; White Blood Count 11.3 K/mm3 (4.8-10.8)
[2025-03-21 08:49] LABS: Alanine Aminotransferase 17 U/L (12-78); Albumin Level 4.0 g/dl (3.5-5.0); Albumin/Globulin Ratio 1.4 (1.1-1.8); Alkaline Phosphatase 74 U/L (38-126); Anion Gap 18.9 mEq/L (5-15); Aspartate Amino Transferase 26 U/L (14-36); Bilirubin,Total 0.3 mg/dl (0.2-1.3); Blood Urea Nitrogen 26 mg/dl (7-17); Calcium 9.6 mg/dl (8.4-10.2); Carbon Dioxide 25 mmol/L (22.0-30.0); Chloride 99 mmol/L (98-107); Creatinine Clearance Estimated 33 mL/min (50-200); Creatinine,Serum 1.10 mg/dl (0.52-1.04); Estimated Glomerular Filt Rate 48 ml/min (>60); GFR (African American) 58 ML/MIN (>60); Globulin 2.9 g/dL (1.3-3.2); Glucose 220 mg/dl (74-100); Potassium 3.9 mmoL/L (3.5-5.1); Sodium 139 mmol/L (136-145); Total Protein,Serum 6.9 g/dl (6.3-8.2)
[2025-03-21 09:24] LABS: Magnesium 2.3 mg/dl (1.6-2.3)
--- NOTE | 2025-03-21 10:07 | P.DS_ITS ---
<Statement entered by Luis Case MD - 03/26/25 08:58> Personally examined patient and agree with plan of care as outlined by the PANTRY STEWARD/STEWARDESS. General Admission date:: 03/20/25 Discharge date: 03/21/25 HPI HPI HPI: That the patient has come back to the ER after being seen a few days earlier. She noted she has bridges on her teeth but never having any problems last Thursday began to have trouble came to the emergency room put on clindamycin. She was able to take that medication but it was not improving had severe facial pain with swelling and redness to the leftside of the chin upwards to the lower jaw on the left. She has come in tonight being on clindamycin because of her's anaphylactic reaction to penicillin. Also does not tolerate sulfa drugs. Patient verbally stated she is able to take cephalosporins. Patient states at present her pain is much improved, that the pain medicine given in the ER has helped. Patient is also receiving a dose of IV clindamycin at this time. CT scan did not show an abscess that needs to be drained., But due to the pain and the increasing nature of this infection we will go ahead and admit I will continue the clindamycin as it may not have had time to work or oral he was not absorbing. But will add Rocephin 1 g every 12 hours with the clindamycin. In reviewing the patient records see that she is also on CPAP actually in 2019 she was at this hospital and intubated, notes a history of COPD stop smoking 20 years ago. Diabetes mellitus with what she is calling her average fingerstick blood sugars around 140. States she is not insulin-dependent at present time. Review of records shows PFT that the lady has lungs that are 99 years and age. Proximately between 60 to 70% of predicted value on the PFT. Patient noted a history as a child of several episodes of pneumonia and asthma. Did smoke for a period of time but stopped 20 years ago. Hospital Course Hospital Course Hospital Course: Ms. Logan is a 75-year-old female who presented to the emergency department yesterday morning with complaints of swelling and pain in her left jaw. She was given antibiotics and pain medication and discharged home. She returned to the ER yesterday evening with worsening pain, and swelling. She does deny fever, difficulty swallowing, shortness of breath. Patient does have a primary medical history of hypertension, hyperlipidemia, coronary artery disease, hypothyroidism, diabetes mellitus, GERD, anxiety, depression, morbid obesity BMI 47. Hospital medicine was consulted for admission for pain control, IV antibiotics, and further monitoring. Plan of care as follows: #Cellulitis, left mandible #Pain, dental #Gingivitis ? Patient feels well today, swelling has decreased in her left jaw. Still moderately swollen. She is tender to the touch. Patient is receiving IV clindamycin and Rocephin. Will be discharged home with antibiotic course of clindamycin and cefdinir. ?Appointment made with dentist for tomorrow, 03/22/2025 at 2 PM. Patient had a bridge placed many years ago at , she states the doctor is retired now. ? Patient also discharged with [place] 5/325 mg for pain. ?Patient has a lengthy list of medication allergies including ciprofloxacin, IV contrast, penicillin, sulfa, trimethoprim. ?Patient did have mild leukocytosis, WBC 14.0. Trending down at discharge 11.3. ?Soft tissue neck CT showed left facial cellulitis without defined rim-enhancing fluid collection. ?Assessment does not reveal any obvious abscess, drainage. #Hypomagnesemia ?Patient's magnesium 1.2 on admission, replace per protocol, repeat today 2.3. #Hyperlipidemia #Hypothyroidism #Hypertension #History of heart stent ? Continue home medication try to remain HCTZ 1 daily, losartan 50 mg daily, Farxiga 10 mg daily, clopidogrel 75 mg daily, carvedilol 25 mg twice daily, atorvastatin 40 mg at bedtime, amlodipine 2.5 mg daily at discharge. #Diabetes mellitus ? Patient A1c 9.0%. Patient does take metformin 750 mg, continue at discharge. Discussed with patient the importance of following up with PCP for better controlled diabetic regimen. #Obesity ?Morbid obesity complicates all aspects of care. ?BMI 45. Total time spent on discharge 35 minutes in counseling, documentation, chart review, and direct care with patient. Exam Data for Last 24 hours Vital signs and Labs for Last 24 Hours: Temp Pulse Resp BP Pulse Ox O2 Del Method 97.8 F 61 16 122/71 96 Room Air 03/21/25 08:00 03/21/25 08:00 03/21/25 08:00 03/21/25 08:00 03/21/25 08:00 03/21/25 08:00 Laboratory Results - last 24 hr 03/19/25 20:58: Hemoglobin A1c 9.0 H 03/20/25 11:43: POC Glucose 238 H 03/20/25 16:32: POC Glucose 196 H 03/21/25 06:36: POC Glucose 135 H 03/21/25 08:27: WBC 11.3 H, RBC 4.19 L, Hgb 12.8, Hct 39.3, MCV 93.8, MCH 30.5, MCHC 32.6, RDW 13.5, Plt Count 206, MPV 9.4, Neut % (Auto) 70.0, Lymph % (Auto) 21.7, [place] % (Auto) 6.4, Eos % (Auto) 1.1, Baso % (Auto) 0.4, Neut # (Auto) 7.9 H, Lymph # (Auto) 2.5, [place] # (Auto) 0.7, Eos # (Auto) 0.1, Baso # (Auto) 0.0, Sodium 139, Potassium 3.9, Chloride 99, Carbon Dioxide 25, Anion Gap 18.9 H, BUN 26 H, Creatinine 1.10 H, Estimated Creat Clear 33, Estimated GFR 48 L, Est GFR ( Amer) 58 L, Glucose 220 H, Calcium 9.6, Magnesium 2.3 D, Total Bilirubin 0.3, AST 26, ALT 17, Alkaline Phosphatase 74, Total Protein 6.9, Albumin 4.0 D, Globulin 2.9, Albumin/Globulin Ratio 1.4 I & O for Last 24 hours: Intake & Output 03/18/25 03/19/25 03/20/25 03/21/25 23:59 23:59 23:59 23:59 Intake Total 830 / 950 600 / 600 Output Total 0 / 0 0 / 0 Balance 830 / 950 600 / 600 Weight 113.398 kg 113.398 kg 108.908 kg Microbiology Reports for the Last 24 Hours: Microbiology 03/19/25 21:30 Blood Blood Culture - Preliminary NO GROWTH AFTER 24 HOURS 03/19/25 21:11 Blood Blood Culture - Preliminary NO GROWTH AFTER 24 HOURS Constitutional Constitutional: no acute distress, morbidly obese and cooperative *Routine HEENT Exam Head: Present normocephalic and facial swelling (Left jaw) Eye: Present EOMI ENT: Present mucous membranes moist *Routine Neck Exam Neck: Present supple and full ROM *Routine Respiratory Exam Respiratory: Present CTA bilaterally, normal respiratory effort, able to speak in complete sentences and symmetric chest movement *Routine Cardiovascular Exam Cardiovascular: Present RRR; Absent murmur *Routine Abdominal Exam Abdominal: Present soft and normoactive bowel sounds; Absent tenderness or distended *Routine Rectal Exam Patient deferred: visual exam *Routine Exam Patient deferred: external exam *Routine Extremities Exam Extremities: Present full ROM; Absent edema *Routine Skin Exam Skin: Present intact and erythema (Left jaw) *Routine Neurological Exam Neurological: Present alert, oriented X3 and normal speech Results Data Completed and Pending Labs on day of discharge: Labs from last 24 hours 03/21/25 03/21/25 03/20/25 08:27 06:36 16:32 WBC 11.3 H RBC 4.19 L Hgb 12.8 Hct 39.3 MCV 93.8 MCH 30.5 MCHC 32.6 RDW 13.5 Plt Count 206 MPV 9.4 Neut % (Auto) 70.0 Lymph % (Auto) 21.7 [place] % (Auto) 6.4 Eos % (Auto) 1.1 Baso % (Auto) 0.4 Neut # (Auto) 7.9 H Lymph # (Auto) 2.5 [place] # (Auto) 0.7 Eos # (Auto) 0.1 Baso # (Auto) 0.0 Sodium 139 Potassium 3.9 Chloride 99 Carbon Dioxide 25 Anion Gap 18.9 H BUN 26 H Creatinine 1.10 H Estimated Creat Clear 33 Estimated GFR 48 L Est GFR ( Amer) 58 L Glucose 220 H POC Glucose 135 H 196 H Hemoglobin A1c Calcium 9.6 Magnesium 2.3 D Total Bilirubin 0.3 AST 26 ALT 17 Alkaline Phosphatase 74 Total Protein 6.9 Albumin 4.0 D Globulin 2.9 Albumin/Globulin Ratio 1.4 03/20/25 03/19/25 11:43 20:58 WBC RBC Hgb Hct MCV MCH MCHC RDW Plt Count MPV Neut % (Auto) Lymph % (Auto) [place] % (Auto) Eos % (Auto) Baso % (Auto) Neut # (Auto) Lymph # (Auto) [place] # (Auto) Eos # (Auto) Baso # (Auto) Sodium Potassium Chloride Carbon Dioxide Anion Gap BUN Creatinine Estimated Creat Clear Estimated GFR Est GFR ( Amer) Glucose POC Glucose 238 H Hemoglobin A1c 9.0 H Calcium Magnesium Total Bilirubin AST ALT Alkaline Phosphatase Total Protein Albumin Globulin Albumin/Globulin Ratio Preliminary micro results at discharge 03/19/25 21:30 Blood Culture - Preliminary Blood NO GROWTH AFTER 24 HOURS 03/19/25 21:11 Blood Culture - Preliminary Blood NO GROWTH AFTER 24 HOURS DS: Diagnosis Discharge Diagnosis (1) Cellulitis: Status: Acute Code(s): L03.90 - Cellulitis, unspecified Qualifiers: Site of cellulitis: face Qualified Code(s): L03.211 - Cellulitis of face (2) Pain, dental: Status: Acute Code(s): K08.89 - Other specified disorders of teeth and supporting structures (3) Gingivitis: Status: Acute Code(s): K05.10 - Chronic gingivitis, plaque induced (4) Hypomagnesemia: Status: Acute Code(s): E83.42 - Hypomagnesemia (5) Hyperlipidemia: Status: Acute Code(s): E78.5 - Hyperlipidemia, unspecified Qualifiers: Hyperlipidemia type: mixed hyperlipidemia Qualified Code(s): E78.2 - Mixed hyperlipidemia (6) Obesity: Status: Acute Code(s): E66.9 - Obesity, unspecified Qualifiers: Body mass index: BMI 45.0-49.9 Obesity classification: adult class 3 (BMI >= 40) Obesity type: due to excess calories Serious obesity comorbidity presence: with serious comorbidity Qualified Code(s): E66.01 - Morbid (severe) obesity due to excess calories; Z68.42 - Body mass index (BMI) 45.0-49.9, adult (7) H/O heart artery stent: Status: Acute Code(s): Z95.5 - Presence of coronary angioplasty implant and graft (8) Hypothyroidism: Status: Acute Code(s): E03.9 - Hypothyroidism, unspecified (9) Hypertension: Status: Acute Code(s): I10 - Essential (primary) hypertension Qualifiers: Hypertension type: primary hypertension Qualified Code(s): I10 - Essential (primary) hypertension Meds Home Medications and Allergies Home Medications ?Medication ?Instructions ?Recorded ?Confirmed ?Type ascorbate calcium (vitamin C) 500 500 mg PO DAILY 05/0803/20/25 History mg tablet atorvastatin 40 mg tablet 40 mg PO HS 05/22/22 5 History cholecalciferol (vitamin D3) 50 50 mcg PO DAILY 03/20/25 History mcg (2,000 unit) capsule levothyroxine 100 mcg tablet 100 mcg PO DAILY 05/22/22 03/20/25 History losartan 50 mg tablet 50 mg PO DAILY 05/22/2203/07 History clopidogrel 75 mg tablet (Plavix) 75 mg PO DAILY #30 t abs 07/01/22 03/20/25 Rx pantoprazole 40 mg tablet,delayed 40 mg PO DAILY #30 t abs 07/01/22 03/20/25 Rx release (Protonix) carvedilol 25 mg tablet 25 mg PO BID 03/03/24 History magnesium aspart,citrate,oxide 800 mg PO DAILY 4 03/20/25 History amlodipine 2.5 mg tablet (Norvasc) 2.5 mg PO DAILY #90 tabs 12/23/24 03/20/25 Rx clindamycin HCl 150 mg capsule 450 mg PO TID 03/20/25 03/20/25 History dapagliflozin propanediol 10 mg 10 mg PO DAILY 5 03/20/25 History tablet (Farxiga) hydrocodone 5 mg-acetaminophen 325 1 tab PO Q8HP PRN M oderate Pain 03/20/25 03/20/25 History mg tablet (Scale Score 5-6) metformin 750 mg tablet,extended 750 mg PO HS 03/20/25 03/20/25 History release 24 hr triamterene 37.5 1 cap PO DAILY 03/20/2503/07 History mg-hydrochlorothiazide 25 mg capsule venlafaxine 100 mg tablet 100 mg PO DAILY 03/20/25 History cefdinir 300 mg capsule 300 mg PO BID #18 caps 03/21 Rx hydrocodone 5 mg-acetaminophen 325 1 tab PO Q6H PRN pa in #13 tabs 03/21/25 Rx mg tablet New Prescriptions to Start Prescriptions: cefMalinda Londono hydrocodone-acetaminophen Malinda Schwarz Allergies Allergy/AdvReac Type Severity Reaction Status Date / Time ciprofloxacin (From Cipro) Allergy Verified 10/11/24 14:36 codeine Allergy Verified 10/11/24 14:36 Gadolinium-Containing Allergy Verified 10/11/24 14:36 Contrast Medi Iodinated Contrast Media Allergy Verified 10/11/24 14:36 Penicillins Allergy Verified 10/11/24 14:36 Sulfa (Sulfonamide Allergy Verified 10/11/24 14:36 Antibiotics) sulfamethoxazole (From Allergy Verified 10/11/24 14:36 Bactrim) trimethoprim (From Bactrim) Allergy Verified 10/11/24 14:36 Discharge Plan Disposition Patient Disposition: Home, Self-Care Condition: Fair Follow up Plan Follow up with: Luciana Sweet DMD [Staff Physician, Dentistry] - 03/22/25 2:00 pm Heladio Palm MD [Primary Care Provider, Internal Medicine] - Enter time for follow up Prescriptions/Medication Reconciliation: New cefdinir 300 mg capsule 300 mg PO BID Qty: 18 0RF hydrocodone-acetaminophen 5-325 mg tablet 1 tab PO Q6H PRN (Reason: pain) Qty: 13 0RF Continued losartan 50 mg tablet 50 mg PO DAILY atorvastatin 40 mg tablet 40 mg PO HS levothyroxine 100 mcg tablet 100 mcg PO DAILY Patient Comments: TAKE 1 TABLET BY MOUTH EVERY DAY ascorbate calcium (vitamin C) 500 mg tablet 500 mg PO DAILY cholecalciferol (vitamin D3) 50 mcg (2,000 unit) capsule 50 mcg PO DAILY clopidogrel [Plavix] 75 mg tablet 75 mg PO DAILY Qty: 30 5RF pantoprazole [Protonix] 40 mg tablet,delayed release (DR/EC) 40 mg PO DAILY Qty: 30 5RF carvedilol 25 mg tablet 25 mg PO BID Patient Comments: TAKE 1 TABLET BY MOUTH TWICE A DAY magnesium aspart,citrate,oxide 400 mg magnesium capsule 800 mg PO DAILY amlodipine [Norvasc] 2.5 mg tablet 2.5 mg PO DAILY Qty: 90 3RF hydrocodone-acetaminophen 5-325 mg Tablet 1 tab PO Q8HP PRN (Reason: Moderate Pain (Scale Score 5-6)) clindamycin HCl 150 mg Capsule 450 mg PO TID triamterene-hydrochlorothiazid 37.5-25 mg capsule 1 cap PO DAILY venlafaxine 100 mg tablet 100 mg PO DAILY metformin 750 mg Tablet Extended Release 24 Hr 750 mg PO HS dapagliflozin propanediol [Farxiga] 10 mg tablet 10 mg PO DAILY Problem Reconciliation Problems Reviewed?: Yes Patient Discharge Instructions ACTIVITY: Continue current activity DIET: continue same diet Patient Instructions: DI for Cellulitis -- Adult, DI for Tooth Abscess, Stop Light Infection Print Language: Wolof Providers Primary Care Provider: Heladio Palm Admit Provider: Luis Case Attending Provider: Luis Case
[2025-03-21 12:30] LABS: POC Glucose,Bedside 174 (70-110)
--- NOTE | 2025-03-23 10:34 | SW/DCPLANNER ---
Phoned patient x2. Left message with name and call back number. [place]
== END 2025-03-21 13:44 | disposition home or self-care (01) ==
LOC: ER 20:15 → 2ND 03-20 00:50
PROVIDERS: Physician Assistant; Admitting Provider Student in an Organized Health Care Education/Training Program; Emergency Provider Student in an Organized Health Care Education/Training Program; PCP Internal Medicine Adolescent Medicine; Visit Provider Student in an Organized Health Care Education/Training Program
DX: L03.211 Cellulitis of face (principal); K05.219 Aggressive periodontitis, localized, unspecified severity; K08.89 Other specified disorders of teeth and supporting structures; K05.10 Chronic gingivitis, plaque induced; E83.42 Hypomagnesemia; I11.9 Hypertensive heart disease without heart failure; K21.9 Gastro-esophageal reflux disease without esophagitis; F41.9 Anxiety disorder, unspecified; F32.A Depression, unspecified; I25.10 Atherosclerotic heart disease of native coronary artery without angina pectoris; E11.9 Type 2 diabetes mellitus without complications; E78.2 Mixed hyperlipidemia; E66.01 Morbid (severe) obesity due to excess calories; S02.2XXA Fracture of nasal bones, initial encounter for closed fracture; J32.3 Chronic sphenoidal sinusitis; E03.9 Hypothyroidism, unspecified; Z95.5 Presence of coronary angioplasty implant and graft; Z88.2 Allergy status to sulfonamides; Z91.041 Radiographic dye allergy status; Z88.1 Allergy status to other antibiotic agents; Z88.5 Allergy status to narcotic agent; Z88.0 Allergy status to penicillin; Z87.891 Personal history of nicotine dependence; Z68.42 Body mass index [BMI] 45.0-49.9, adult; Z79.899 Other long term (current) drug therapy; Z79.84 Long term (current) use of oral hypoglycemic drugs; Z79.890 Hormone replacement therapy; Z79.02 Long term (current) use of antithrombotics/antiplatelets
CPT/HCPCS: 36415; 70487; 70491; 80053; 82962; 83036; 83735; 84145; 85025; 86140; 87040; 93005; 96361; 96365; 96367; 96375; 96376; 99291; G0378; J0696; J0736; J1171; J1200; J1650; J2919; J3475; J7030; Q9967

== ENCOUNTER 2025-04-13 17:16 | Emergency (ER) | payer MEDICARE, OTHER, SELFPAY ==
--- OUTSIDE RECORDS SUMMARY | 2019-05-11 19:56 | XMS_ITS | Encounter Summary ---
[facility] [address] [place] [address] Care Team Providers Care Bench Inspector Name Role Phone Huber Grossman MD Primary Care Provider Barbara valladares Reason for Referral * Diagnostic Medical (Routine) - Closed Specialty Diagnoses / Procedures Referred By Contac t Referred To Contact Sleep Medicine Diagnoses DELL (obstructive sleep apnea) Procedures Polysomnography 4 or More Parameters Luis Galvan MD Phone: tel: fax: [facility] [address] [address] Phone: tel: fax: Referral ID Status Reason Start Date Expiration Date Visits Re quested Visits Authorized [id number] Closed 12/20/2018 12/20/2019 1 1 Reason for Visit * Diagnostic Medical (Routine) - Closed Specialty Diagnoses / Procedures Referred By Contac t Referred To Contact Sleep Medicine Diagnoses DELL (obstructive sleep apnea) Procedures Polysomnography 4 or More Parameters Luis Galvan MD Phone: tel: fax: [facility] [address] [address] Phone: tel: fax: Referral ID Status Reason Start Date Expiration Date Visits Re quested Visits Authorized [id number] Closed 12/20/2018 12/20/2019 1 1 Encounter Details Date Type Department Care Team (Late st Contact Info) Description 05/11/2019 7:56 PM EDT Hospital Encounter [facility] [address] [place] [phone] Luis Galvan MD [address] [place] [address] DELL (No follow-up); DELL (obstructive sleep apnea) [...] She underwent a home sleep study at [facility] a while ago which was [...] was noted to be present by the aerial survey technician in attendance. D) Oxygen saturation: Oxygen [...] documented as of this encounter Care Teams Bench Inspector Relationship Specialty Start Date End Date Huber Grossman MD PCP - General Family Medicine 02/08/18 09/28/19 documented as of this encounter
--- OUTSIDE RECORDS SUMMARY | 2025-03-28 10:30 | XMS_ITS ---
Author Organization [facility] Address [address] [place] [address] Care Team Providers Care Water Reclamation Systems Operator Name Role Phone Heladio Palm Primary Care Provider REASON FOR VISIT lab f/u Encounters Encounter Location Date Provider Diagnosis [facility] [address] [address] 03/28/2025 Heladio Palm Plan Of Treatment Next Appt Details Provider Name:Heladio Palm, 05/11/2025 09:30:00 AM, [address] [place] [address], [phone], Provider Name:Heladio Palm, 05/25/2025 09:30:00 AM, [address] [place] [address], [phone], Progress Notes * Karo VELAZQUEZOB:[birth year] (75 yo F)Acc No.[id number]:03/28/2025 Progress Notes Patient: Juwan Mirtha RUST Provider: Haritha Palm MD :1950 A ge:75 Y S ex:Female Date:03/28/2025 Address:[address] [place] [address] [place], [id number] Subjective: * Chief Complaints: * 1 . Lab f/u. * 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: Objective: * Vitals: Assessment: Plan: * Treatment: * * Electronic signature of Jeffy Palm MD FAAP on 04/13/2025 at 05:25 PM EDT Sign off status: Pending * Provider: Haritha Palm MD Date: 03/28/2025 Generated for Maggy shine/Tila/Loni on: 0 04/13/2025 05:25 PM EDT
--- OUTSIDE RECORDS SUMMARY | 2025-03-29 05:15 | XMS_ITS ---
Author Organization [facility] Address [address] [facility] [address] [place] [address] Care Team Providers Care Production Broacher Name Role Phone Heladio Palm Primary Care Provider [phone] REASON FOR VISIT [facility] D/C 03/21/2025 Encounters Encounter Location Date Provider Diagnosis [facility] [address] [facility] [address] [place] [address] 03/29/2025 Heladio Palm Plan Of Treatment Next Appt Details Provider Name:Heladio Palm, 05/11/2025 09:30:00 AM, [address], [address], Provider Name:Heladio Palm, 05/25/2025 09:30:00 AM, [address] [place] [address], [address], Progress Notes * Karo VELAZQUEZOB:[birth year] (75 yo F)Acc No.[id number]:03/29/2025 HOSP F/U Patient: Juwan Mirtha RUST Provider: Haritha Palm MD :1950 A ge:75 Y S ex:Female Date:03/29/2025 Address:[address] [place] [address] [place], [place]-[id number] Subjective: * Chief Complaints: * 1 . [facility] D/C 03/21/2025. * 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: Objective: * Vitals: Assessment: Plan: * Treatment: * * Electronic signature of Jeffy Palm MD FAAP on 04/13/2025 at 05:26 PM EDT Sign off status: Pending * Provider: Haritha Palm MD Date: 0 03/29/2025 Generated for Maggy shine/Tila/Loni on: 0 04/13/2025 05:26 PM EDT
--- OUTSIDE RECORDS SUMMARY | 2025-03-30 05:45 | XMS_ITS ---
Author Organization [facility] Address [address] [place] [address] Care Team Providers Care Locks Inspector Name Role Phone Heladio Palm Primary Care [...] Drug Allergy Acti ve REASON FOR VISIT [facility] D/C 03/21/2025, lab f/u Medications Medication SIG (Take, Route, Frequency, Duration) Notes Start Date End Date Status Clopidogrel Bisulfate 75 MG 1 tab(s) orally once a day; Duration: 90 days 10/04/2024 Active Farxiga 10 MG TAKE 1 TABLET BY MOUTH ONCE DAILY; Duration: 90 Active Venlafaxine HCl 100 MG 1 tab(s) orally once a day; Duration: 30 days Active Losartan Potassium 50 MG TAKE 1 TABLET BY MOUTH ONCE DAILY; Duration: 90 Active Levothyroxine Sodium 100 MCG 1 tab(s) orally once a day; Duration: 90 days Active Carvedilol 25 MG 1 tab(s) orally 2 times a day; Duration: 90 days Active CONSERVING DEVICE DIRECTED DIRECTED *Please review for potential replacement for e-prescription and drug interaction check* 03/22/2020 Active Pantoprazole Sodium 40 MG 1 tab(s) orally once a day; Duration: 90 days Active metFORMIN HCl ER 750 MG 1 tab(s) orally once a day; Duration: 90 days 07/19/2024 Active Atorvastatin Calcium 40 MG 1 tab(s) orally once a day; Duration: 90 days Active Vitamin D3 50 MCG (2000 UT) as directed orally once a day; Duration: 30 day(s) Active Vitamin C 500 MG 1 tab(s) orally once a day; Duration: 30 day(s) Active Magnesium Oxide 400 MG 2tabs orally once a day; Duration: 30 days Active Acetaminophen 500 MG 2 tab(s) orally every 6 hours prn Active PEN NEEDLE 6MM 31G - ONCE A DAY; Duration: 30 DAY(S) *Please review for potential replacement for e-prescription and drug interaction check* 02/13/2020 Active Zinc 50 MG 1 tab(s) orally once a day; Duration: 30 day(s) Active Clindamycin HCl 300 MG 1 capsule Orally every 12 hrs Active HYDROcodone-Acetamino phen 5-325 MG 1 tablet as needed Orally every 6 hrs Active Biotin 1000 MCG 1 tab(s) orally once a day Active amLODIPine Besylate 2.5 MG 1 tab(s) orally once a day Active Ozempic (0.25 or 0.5 MG/DOSE) 2 MG/3ML 0.25mg Subcutaneous weekly; Duration: 90 days 03/30/2025 Active Diflucan 150 MG 1 tablet Orally daily; Duration: 3 days 03/22/2025 Active Triamterene-HCTZ 37.5-25 MG TAKE 1 CAPSULE BY MOUTH ONCE DAILY; Duration: 90 Active Social History Tobacco Use: Social History Observation Description Date Details (start date - stop date) Former Smoker NA - NA Smoking: Question Answer Notes Are you a: former smoker How long has it been since you last smoked? > 10 years Vital Signs Temperature 98.6 degrees Fahrenheit 03/30/20 25 Heart Rate 74 /min 03/30/2025 Blood pressure systolic 124 mm Hg 03/30/20 25 Blood pressure diastolic 80 mm Hg 025 Height 5 ft 3 in in 03/30/2025 Weight 234 lbs 03/30/2025 BMI 41.45 kg/m2 03/30/2025 Encounters Encounter Location Date Provider Diagnosis [address] [address] 03/30/2025 Heladio Palm Dental abscess K04.7 ; Type 2 diabetes mellitus with diabetic chronic kidney disease E11.22 and Hospital discharge follow-up Z09 Assessments Encounter Date Diagnosis (ICD Code) Assessment Notes Treatment Notes Treatment Clinical Notes Section Notes 03/30/2025 Dental abscess (ICD-10 - K04.7) Finish up antibiotics. Continues follow-up with dentistry. No changes in plan at this point 03/30/2025 Type 2 diabetes mellitus with diabetic chronic kidney disease (ICD-10 - E11.22) Given multiple complications including stage IIIb kidney disease, morbid obesity, etc. needs better control and he is an ideal candidate for GLP injections. She is familiar with side effects as her daughter takes these. Will start with semaglutide 0.25 weekly. Follow-up in 6 weeks to evaluate for side effects and dose titration 03/30/2025 Hospital discharge follow-up (ICD-10 - Z09) Personally reviewed H&P and discharge summary as available from hospital discharge documentation. Reviewed pertinent labs and test done in the hospital. Personally reconciled medication. Plan Of Treatment Medication Medication Name Sig Start Date Stop Date Notes Ozempic (0.25 or 0.5 MG/DOSE) 2 MG/3ML 0.25mg Subcutaneous weekly; Duration: 90 days 03/30/2025 Treatment Notes Assessment Notes Dental abscess Finish up antibiotics. Continues follow-up with dentistry. No changes in plan at this point Type 2 diabetes mellitus wit h diabetic chronic kidney disease Given multiple complications including stage IIIb kidney disease, morbid obesity, etc. needs better control and he is an ideal candidate for GLP injections. She is familiar with side effects as her daughter takes these. Will start with semaglutide 0.25 weekly. Follow-up in 6 weeks to evaluate for side effects and dose titration Hospital discharge follow-up Personally reviewed H&P and discharge summary as available from hospital discharge documentation. Reviewed pertinent labs and test done in the hospital. Personally reconciled medication. Next Appt Details Follow Up: prn,6 Weeks, Reas on: Provider Name:Heladio Palm, 05/11/2025 09:30:00 AM, [address] [place] [address], [phone], Provider Name:Heladio Palm, 05/25/2025 09:30:00 AM, [address], [address], Progress Notes * Karo VELAZQUEZOB:[birth year] (75 yo F)Acc No.[id number]:03/30/2025 HOSP F/U Patient: Mirtha LOMAX Provider: Haritha Palm MD :1950 A ge:75 Y S ex:Female Date:03/30/2025 Address:[address] [place], [place] [address] [id number] Subjective: * Chief Complaints: * 1 . [facility] D/C 03/21/2025. 2. Lab f/u. * HPI: I ntrim History: Transition of care visit from hospital D ate of admission to hospital: 0 03/20/2025, D ate of receipt of hospital admission report: 0 03/21/2025,?Date of discharge from hospital: 0 03/21/2025, D ate of receipt of hospital discharge summary: 0 03/22/2025, D ischarge medications reviewed and reconciled from hospital: M edications left unchanged. Patient is here for hospital follow-up and also to review her A1c levels. Was hospitalized as noted above at [facility] for a dental abscess that failed to respond to outpatient therapy. She was discharged home after 1 day of IV antibiotics and steroids. Since that time she is seeing dentistry, the tooth has been removed and she feels much better, is finishing up antibiotics. Did have a complication of a vaginal yeast infection which we have called in medication for her. Also wants to discuss her A1c from last visit of 7.9%. Currently on metformin and Farxiga but wonders about other therapy. * 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: A fib, Basal cell, [...] Hospitalization/Major Diagno stic Procedure: R espiratory failure- [facility] then transferred to [facility] then to [facility] for rehab 08/2019, - left kidney- rupture- renal ablation 10/2019, [facility] - 03/19-. * Family History: F ather: 58 yrs, CAD. M other: , alzheimers, pin strokes. P aternal Grand Father: . P aternal Grand Mother: . M aternal Grand Father: . Maternal Grand Mother: . P aternal uncle: , CAD. P aternal aunt: , alzheimers, CAD. M aternal uncle: , alzheimers, stomach cancer. M aternal aunt: , dementia, CVA. S ibeyal: alive, HTN. Thomas maldonado: alive, son- [place]- CAD. 1 sister(s) - healthy. 3 son(s) [...] no. Occupation: retired. * Medications: T aking HYDROcodone-Acetaminophen 5-325 MG Tablet 1 tablet as needed Orally every 6 hrs , Taking Clindamycin HCl 300 MG Capsule 1 capsule Orally every 12 hrs , Taking amLODIPine Besylate 2.5 MG Tablet 1 tab(s) [...] for e-prescription and drug interaction check*, Taking CONSERVING DEVICE DIRECTED DIRECTED , Notes to Pharmacist: *Please review for potential replacement for e-prescription and drug interaction check*, Taking metFORMIN HCl ER 750 MG Tablet Extended Release 24 Hour 1 tab(s) orally once a day , Taking Pantoprazole [...] 1 TABLET BY MOUTH ONCE DAILY , Taking Levothyroxine Sodium 100 MCG Tablet 1 tab(s) orally once a day , Taking Losartan Potassium 50 MG Tablet TAKE 1 TABLET BY MOUTH ONCE DAILY , Taking Triamterene-HCTZ 37.5-25 MG Capsule TAKE 1 CAPSULE BY MOUTH ONCE DAILY , Taking Diflucan 150 MG Tablet 1 tablet Orally daily , Medication List reviewed and reconciled with the patient * Allergies: P enicillin: anaphylaxis - Allergy, IV CONTRAST: Allergy, SULFA DRUGS: Allergy, Codeine: Allergy, Cipro: tingling lips and tongue - Allergy, DECONGESTANTS: Allergy. Objective: * Vitals: N urse: dw, Pain: 0, Temp: 98.6, RR: 20, HR: 74, BP: 124/80, Ht: 5 ft 3 in, Wt: 234, BMI:41.45. * Examination: G eneral Examination: P leasant and talkative, alert and orient x 3. Heart and lung exam unremarkable. Left neck has a couple of shotty lymph nodes that she reports are decreasing in size since the tooth was removed. Oropharynx otherwise clear. No peripheral edema. Assessment: * Assessment: 1. D ental abscess - K04.7 (Primary) 2 . T ype 2 diabetes mellitus with diabetic chronic kidney disease - E11.22 3 . H ospital discharge follow-up - Z09? Plan: * Treatment: 2. T ype 2 diabetes mellitus with diabetic chronic kidney disease Start Ozempic (0.25 or 0.5 MG/DOSE) Solution Pen-injector, 2 MG/3ML, 0.25mg, Subcutaneous, weekly, 90 days, 3, Refills 1. Notes: Given multiple complications including stage IIIb kidney disease, morbid obesity, etc. needs better control and he is an ideal candidate for GLP injections. She is familiar with side effects as her daughter takes these. Will start with semaglutide 0.25 weekly. Follow-up in 6 weeks to evaluate for side effects and dose titration 3. H ospital discharge follow-up Notes: Personally reviewed H&P and discharge summary as available from hospital discharge documentation. Reviewed pertinent labs and test done in the hospital. Personally reconciled medication. * Procedure Codes: 9 9495 TRANS CARE MGMT 14 DAY DISCH, Modifiers: 25 , 1111F DSCHR MED/CURENT MED MERGE * Follow Up: p rn,6 Weeks * * Sign off status: Completed true * Provider: Haritha Palm MD Date: 0 03/30/2025 Generated for Maggy ng/Tila/eTransmitting on: 0 04/13/2025 05:26 PM EDT History and Physical Notes * HPI (History of Present Illness) Category Sub-Category Detail Notes Category Not es Intrim History Transition of care visit from hospital Date of admission to hospital:: 03/20/2025 Patient is here for hospital follow-up and also to review her A1c levels. Was hospitalized as noted above at [facility] for a dental abscess that failed to respond to outpatient therapy. She was discharged home after 1 day of IV antibiotics and steroids. Since that time she is seeing dentistry, the tooth has been removed and she feels much better, is finishing up antibiotics. Did have a complication of a vaginal yeast infection which we have called in medication for her. Also wants to discuss her A1c from last visit of 7.9%. Currently on metformin and Farxiga but wonders about other therapy. Date of receipt of hospital admission re port:: 03/21/2025 Date of discharge from hospital:: 2024 Date of receipt of hospital discharge freeman mmary:: 03/22/2025 Discharge medications review ed and reconciled from hospital:: Medications left unchanged Examination Category Sub-Category Detail Notes Category Not es General Examination Pleasant and talkative, alert and orient x 3. Heart and lung exam unremarkable. Left neck has a couple of shotty lymph nodes that she reports are decreasing in size since the tooth was removed. Oropharynx otherwise clear. No peripheral edema
[2025-04-13 17:19] VITALS: BP 149/92; PULSE 142; RESP 28; TEMP 36.5; O2SAT 97; BMI 39.8
--- OUTSIDE RECORDS SUMMARY | 2025-04-13 17:25 | XMS_ITS | Encounter Summary ---
Author Organization [facility] Address [address] [place] [address] Care Team Providers Care Canteen Manager Name Role Phone Dano Romero MD Primary Care Provider [phone] Reason for Visit * Reason Comments Med Refill Encounter Details Date Type Department Care Team (Late st Contact Info) Description 07/08/[address] [facility] [address] [phone] Huber Grossman MD Social History Tobacco Use [...] states that when she went to go turkey picker her refill that she was informed [...] documented as of this encounter Care Teams Canteen Manager Relationship Specialty Start Date End Date Dano Romero MD [address] [place] [address] PCP - General Internal Medicine 09/29/19 documented as of this encounter
--- OUTSIDE RECORDS SUMMARY | 2025-04-13 17:25 | XMS_ITS | Encounter Summary ---
Author Organization [facility] Address [address] [place] [address] Care Team Providers Care Information Security Associate Name Role Phone Heladio Palm MD Primary Care Provider + [phone] Encounter Details Date Type Department Care Team (Late st Contact Info) Description 03/02/2025 Telephone [facility] [address] [place] [address] Luis Olivares MD [address] [address] Social History Tobacco Use Types [...] date Send To: Mail Best contact number: [phone] (home) Optimal time of day to reach caller: ANYTIME Additional comments/information from caller: None Note: Please do not reply to this message. Follow-up communication and further actions as a result of this message need to be communicated with the patient directly, if the patient is not active onMyChart. If the patient is active on MyChart, they will receive notification of the communication/outcome via [employer] documented in this encounter Plan of Treatment Upcoming Encounters Date Type Department Care Team (Late st Contact Info) Description 01/26/2026 11:00 AM EDT Office Visit [facility] [address] [place] [address] Luis Olivares MD 110 [facility] [address] [place] [address] documented as of this encounter [...] documented as of this encounter Care Teams Information Security Associate Relationship Specialty Start Date End Date Heladio Palm MD [address] [place] [address] PCP - General Internal Medicine 05/02/22 documented as of this encounter
--- OUTSIDE RECORDS SUMMARY | 2025-04-13 17:25 | XMS_ITS | Encounter Summary ---
[facility] Address [address] [place] [address] Care Team Providers Care Tax Collection Coordinator Name Role Phone Dano Romero MD Primary Care Provider [phone] Encounter Details Date Type Department Care Team (Late st Contact Info) Description 11/20/2017 External CPT II MACHINE SPRING FORMER - [facility] Social History Tobacco Use [...] documented as of this encounter Care Teams Tax Collection Coordinator Relationship Specialty Start Date End Date Dano Romero MD [address] [place] [address] PCP - General Internal Medicine 09/29/19 documented as of this encounter
--- OUTSIDE RECORDS SUMMARY | 2025-04-13 17:25 | XMS_ITS | Encounter Summary ---
[facility] Organization [facility] Address [address] [place] [address] Care Team Providers Care Propulsion Motor And Generator Repairer Name Role Phone Dano Romero MD Primary Care Provider [phone] Encounter Details Date Type Department Care Team (Late st Contact Info) Description 02/02/2018 Telephone [facility] [address] [place] [phone] Huber Grossman MD Social History Tobacco [...] documented as of this encounter Care Teams Propulsion Motor And Generator Repairer Relationship Specialty Start Date End Date Dano Romero MD [address] [place], [place] [id number] PCP - General Internal Medicine 09/29/19 documented as of this encounter
--- OUTSIDE RECORDS SUMMARY | 2025-04-13 17:25 | XMS_ITS | Encounter Summary ---
Author Organization Healthcare Address [address] [place] [address] Care Team Providers Care Formation Fracturing Operator Name Role Phone Heladio Palm MD Primary Care Provider [phone] Reason for Visit * Reason Onset Date Comments HCN Clinical Concern/Question 02/27/2025 Encounter Details Date Type Department Care Team (Late st Contact Info) Description 02/27/2025 Telephone [facility] [address], [address] [place] [address] Alejandra Camacho MD [address] [place] [address] HCN Clinical Concern/Question Social History [...] the initial request. Best contact number: Other: [phone] Optimal time of day to reach caller: [...] will receive notification of the communication/outcome via [employer]. * Telephone Encounter - Whitney Doan - [...] be sent again. Best contact number: Other: [phone] Optimal time of day to reach caller: ANYTIME Additional comments/information from caller: Not Applicable Note: Please do not reply to this message. Follow-up communication and further actions as a result of this message need to be communicated with the patient directly, if the patient is not active onMyChart. If the patient is active on MyChart, they will receive notification of the communication/outcome via [employer]. * Telephone Encounter - Whitney Doan - 02/27/2025 12:19 PM EDT Received telephone readback orders from Dr. 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 Best contact number: Other: [phone] Optimal time of day to reach caller: ANYTIME Additional comments/information from caller: None Note: Please do not reply to this message. Follow-up communication and further actions as a result of this message need to be communicated with the patient directly, if the patient is not active onMyChart. If the patient is active on MyChart, they will receive notification of the communication/outcome via [employer]. documented in this encounter Plan of Treatment Upcoming Encounters Date Type Department Care Team (Late st Contact Info) Description 01/26/2026 11:00 AM EDT Office Visit [facility] [address] [place] [address] Luis Olivares MD [address] [facility] [address] [place] [address] Scheduled Orders Name Type Priority Associated Diagnoses Orde r Schedule PTH Intact Total Lab Routine Hyperparathyroidism, unspecified ([facility]/HCC) Expected: 02/27/2025 (Approximate), Expires: 08/29/2026 documented as of this encounter Visit Diagnoses Diagnosis Renal osteodystrophy- Primary Hyperparathyroidism, unspecified ([facility]) Hyperparathyroidism, unspecified documented in this encounter Additional Health Concerns Assessment Noted Time PHQ-9 Depression Total Score: 12 023 12:53 PM EDT A fall risk assessment has been complete d for the patient 12/30/2024 10:32 AM EDT A Body Mass Index follow-up plan has been documented for the patient 12/30/2024 11:11 AM EDT documented as of this encounter Care Teams Formation Fracturing Operator Relationship Specialty Start Date End Date Heladio Palm MD [address] [place] [address] PCP - General Internal Medicine 05/02/22 documented as of this encounter
--- OUTSIDE RECORDS SUMMARY | 2025-04-13 17:25 | XMS_ITS | Encounter Summary ---
Author Organization Healthcare Address [address] [place] [address] Care Team Providers Care Burial Vault Deliverer And Installer Name Role Phone Heladio Palm MD Primary Care Provider + [phone] Encounter Details Date Type Department Care Team (Late Contact Info) Description 11/03/2024 Orders Only External Location [address] [place] [address] Provider, External Social History Tobacco Use Types [...] Description 01/26/2026 11:00 AM EDT Office Visit [facility] [address] [place] [address] Luis Olivares MD [address] [address] documented as of this encounter [...] documented as of this encounter Care Teams Burial Vault Deliverer And Installer Relationship Specialty Start Date End Date Heladio Palm MD [address] [place] [address] PCP - General Internal Medicine 05/02/22 documented as of this encounter
--- OUTSIDE RECORDS SUMMARY | 2025-04-13 17:25 | XMS_ITS | Encounter Summary ---
[facility] Address [address] [place] [address] Care Team Providers Care Truss Puller Helper Name Role Phone Dano Romero MD Primary Care Provider [phone] Encounter Details Date Type Department Care Team (Late st Contact Info) Description 08/01/2019 Telephone [facility] [address] [place] [phone] Huber Grossman MD Social History Tobacco [...] documented as of this encounter Care Teams Truss Puller Helper Relationship Specialty Start Date End Date Dano Romero MD [address] [place] [address] PCP - General Internal Medicine 09/29/19 documented as of this encounter
--- OUTSIDE RECORDS SUMMARY | 2025-04-13 17:25 | XMS_ITS | Encounter Summary ---
Author Organization Healthcare Address [address] [place] [address] Care Team Providers Care Manager Neonatal Name Role Phone Heladio Palm MD Primary Care Provider + [phone] Encounter Details Date Type Department Care Team ([facility] Contact Info) Description 03/13/2025 Telephone [facility] Mineral Metabolism [address] [facility], [address] [place] [address] Alejandra Camacho MD [address] [place] [address] Social History Tobacco Use Types [...] optimal time of day to reach caller: [phone] Note: Please do not reply to this message. Follow-up communication and further actions as a result of this message need to be communicated with the patient directly, if the patient is not active onMyChart. If the patient is active on MyChart, they will receive notification of the communication/outcome via [employer]. documented in this encounter Plan of Treatment Upcoming Encounters Date Type Department Care Team (Late st Contact Info) Description 01/26/2026 11:00 AM EDT Office Visit [facility] [address] [facility] [place] [address] Luis Olivares MD [address] [address] documented as of this encounter [...] as of this encounter Care Teams Manager Neonatal Relationship Specialty Start Date End Date Heladio Palm MD [address] [place] [address] PCP - General Internal Medicine 05/02/22 documented as of this encounter
--- OUTSIDE RECORDS SUMMARY | 2025-04-13 17:25 | XMS_ITS | Encounter Summary ---
Author Organization Healthcare Address [address] [place] [address] Care Team Providers Care Snow Removal Supervisor Name Role Phone Heladio Palm MD Primary Care Provider + [phone] Encounter Details Date Type Department Care Team [...] Description 01/26/2026 11:00 AM EDT Office Visit [facility] [address] [place] [address] Luis Olivares MD [address] [address] documented as of this encounter [...] documented as of this encounter Care Teams Snow Removal Supervisor Relationship Specialty Start Date End Date Heladio Palm MD [address] [place] [address] PCP - General Internal Medicine 05/02/22 documented as of this encounter
--- OUTSIDE RECORDS SUMMARY | 2025-04-13 17:25 | XMS_ITS | Encounter Summary ---
Author Organization Healthcare Address [address] [place] [address] Care Team Providers Care Flame Cutting Machine Operator Name Role Phone Heladio Palm MD Primary Care Provider + [phone] Encounter Details Date Type Department Care Team ([facility] Contact Info) Description 02/27/2025 Orders Only [facility] Nephrology, Bone & Mineral Metabolism [address] [facility], [address] [place] [address] Whitney Doan Hypercalcemia (Primary Dx) [...] Description 01/26/2026 11:00 AM EDT Office Visit [facility] [address] [place] [address] Luis Olivares MD [address] [place] [address] Scheduled Orders Name Type Priority [...] documented as of this encounter Care Teams Flame Cutting Machine Operator Relationship Specialty Start Date End Date Heladio Palm MD [address] [place] [address] PCP - General Internal Medicine 05/02/22 documented as of this encounter
--- OUTSIDE RECORDS SUMMARY | 2025-04-13 17:25 | XMS_ITS | Encounter Summary ---
[facility] Address [address] [place] [address] Care Team Providers Care Machine Packer Name Role Phone Dano Romero MD Primary Care Provider [phone] Reason for Visit * Reason Onset Date Comments Med Refill 11/16/2018 Encounter Details Date Type Department Care Team (Late st Contact Info) Description 11/16/2018 Refill [facility] [address] [phone] Huber Grossman MD Social History Tobacco Use [...] as of this encounter Care Teams Machine Packer Relationship Specialty Start Date End Date Daon Romero MD [address] [place] [address] PCP - General Internal Medicine 09/29/19 documented as of this encounter
--- OUTSIDE RECORDS SUMMARY | 2025-04-13 17:25 | XMS_ITS | Encounter Summary ---
Author Organization Healthcare Address [address] [place] [id number] Care Team Providers Care Service Technician Copier Name Role Phone Heladio Palm MD Primary Care Provider + [phone] Encounter Details Date Type Department Care Team ([facility] Contact Info) Description 02/16/2025 Telephone [facility]eral Met[facility] [address] [facility], [address] [place] [address] Daxa Martin MBBS [address] [place], [place] [id number] Social History Tobacco Use Types Packs/Day Years [...] [facility] Best contact number and optimal time of day to reach caller: [phone] Note: Please do not reply to this message. Follow-up communication and further actions as a result of this message need to be communicated with the patient directly, if the patient is not active onMyChart. If the patient is active on MyChart, they will receive notification of the communication/outcome via [employer]. * Telephone Encounter - Whitney Dubon - 02/17/2025 9:11 AM EDT L/m to reschedule * Telephone Encounter - Rosie Dewitt - 02/16/2025 9:25 AM EDT Clinical Concern/Question Reason for Call: pt [facility] to [facility] has today, sending to clinic for availability Best contact number: Other: [phone] Optimal time of day to reach caller: ANYTIME Additional comments/information from caller: None Note: Please do not reply to this message. Follow-up communication and further actions as a result of this message need to be communicated with the patient directly, if the patient is not active onMyChart. If the patient is active on MyChart, they will receive notification of the communication/outcome via [employer]. documented in this encounter Plan of Treatment Upcoming Encounters Date Type Department Care Team (Late st Contact Info) Description 01/26/2026 11:00 AM EDT Office Visit [facility] [address] [place] [address] Luis Olivares MD [address] [place] [address] documented as of this encounter [...] documented as of this encounter Care Teams Service Technician Copier Relationship Specialty Start Date End Date Heladio Palm MD [address] [place] [address] PCP - General Internal Medicine 05/02/22 documented as of this encounter
--- NOTE | 2025-04-13 17:26 | ED_ITS ---
<Statement entered by Alyssa Sahu DO - 04/13/25 23:59> I was consulted by the VANIA, and we discussed the complexity of problems being addressed. I approve the treatment and management plan for this patient's care in the emergency department, thus performing a substantial portion of the medical decision making. Alyssa Sahu DO Discharge Plan Disposition Patient Disposition: Home, Self-Care Condition: Good Prescriptions Prescriptions: No Action losartan 50 mg tablet 50 mg PO DAILY atorvastatin 40 mg tablet 40 mg PO HS levothyroxine 100 mcg tablet 100 mcg PO DAILY Patient Comments: TAKE 1 TABLET BY MOUTH EVERY DAY ascorbate calcium (vitamin C) 500 mg tablet 500 mg PO DAILY cholecalciferol (vitamin D3) 50 mcg (2,000 unit) capsule 50 mcg PO DAILY clopidogrel [Plavix] 75 mg tablet 75 mg PO DAILY Qty: 30 5RF pantoprazole [Protonix] 40 mg tablet,delayed release (DR/EC) 40 mg PO DAILY Qty: 30 5RF carvedilol 25 mg tablet 25 mg PO BID Patient Comments: TAKE 1 TABLET BY MOUTH TWICE A DAY magnesium aspart,citrate,oxide 400 mg magnesium capsule 800 mg PO DAILY amlodipine [Norvasc] 2.5 mg tablet 2.5 mg PO DAILY Qty: 90 3RF hydrocodone-acetaminophen 5-325 mg Tablet 1 tab PO Q8HP PRN (Reason: Moderate Pain (Scale Score 5-6)) clindamycin HCl 150 mg Capsule 450 mg PO TID triamterene-hydrochlorothiazid 37.5-25 mg capsule 1 cap PO DAILY venlafaxine 100 mg tablet 100 mg PO DAILY metformin 750 mg Tablet Extended Release 24 Hr 750 mg PO HS dapagliflozin propanediol [Farxiga] 10 mg tablet 10 mg PO DAILY cefdinir 300 mg capsule 300 mg PO BID Qty: 18 0RF hydrocodone-acetaminophen 5-325 mg tablet 1 tab PO Q6H PRN (Reason: pain) Qty: 13 0RF Referrals Follow up/Referrals: Provider,Referral, MD [Referring, Medical] - See instructions Activity Restrictions/Add. Instructions Additional Instructions/Restrictions: Please return to the emergency department with any worsening signs or symptoms, continue take all your medications as prescribed. Please follow-up with PCP and apartment groundskeeper in the upcoming days/weeks. Clinical Impressions Clinical Impression: AF (paroxysmal atrial fibrillation), Atrial flutter by electrocardiogram Instructions Patient Instructions: DI for Atrial Fibrillation, DI for Atrial Flutter Print Language Print Language: Spanish Discharge ED Provider: Alyssa Sahu General Adult HPI General Chief complaint: Arrhythmia/Palpitations Stated complaint: CP Time Seen by Provider: 04/13/25 17:17 Mode of Arrival: Ambulatory Source of Information: Patient Description of Symptoms (Recalled from ER Triage Doc. by RN): pt complains of palpatations with shortness of breath. started this morning. has happened in the past with low mag History of Present Illness HPI narrative: 75-year-old female presents emergency department with palpitations, shortness of air, started around 9 or 9:30 AM this morning, states that she thought it would get better throughout the day after taking her medications, however symptomatology persisted, she took her heart rate at home and it was 150 something , thus prompted her emergency department visit. Patient denies any fever chills upper chest pain, denies any abdominal pain, no nausea no vomiting no constipation no diarrhea no abdominal pain, no new urinary type symptomatology, patient is a former smoker, denies any alcohol or other drug use. Patient has past medical history consistent with hypertension, atrial fibrillation, has had previous history of atrial fibrillation with RVR, not on anticoagulation, due to history of renal hemorrhage . Patient states this happened in the past, and they said that her magnesium was really low and they gave me 2 bags of magnesium that got better , endorses taking magnesium supplementation at home, other past medical history consistent with hyperlipidemia, on a plate therapy with Plavix, T2DM, hypothyroidism, GERD, anxiety/depression. Initial triage vitals notable tachycardia in the 140s, otherwise unremarkable. Please note that above description of symptoms, in this electronic medical record under categorization of recalled from ER triage doctor by RN are reflective of an initial nursing assessment, however, is not reflective of my full history and physical exam that was personally taken and clarified. Consequentially, this preceding description of symptoms, which may include the patient's categorized chief complaint in the EMR, do not reflect my personal clinical impression, and the ultimate description of history of present illness and patient stated complaints should be deferred to this section of the note. Unless stated otherwise or congruent with this section of the note, additional signs, symptoms, or incongruence should be interpreted as inaccurate with my clinical impression. Onset (ago): hour(s) Related Data Home Medications ?Medication ?Instructions ?Recorded ?Confirmed ascorbate calcium (vitamin C) 500 500 mg PO DAILY 05/0803/20/25 mg tablet atorvastatin 40 mg tablet 40 mg PO HS 05/22/22 5 cholecalciferol (vitamin D3) 50 50 mcg PO DAILY 03/20/25 mcg (2,000 unit) capsule levothyroxine 100 mcg tablet 100 mcg PO DAILY 05/22/22 03/20/25 losartan 50 mg tablet 50 mg PO DAILY 05/22/2203/07 carvedilol 25 mg tablet 25 mg PO BID 03/03/24 magnesium aspart,citrate,oxide 800 mg PO DAILY 03/20/25 clindamycin HCl 150 mg capsule 450 mg PO TID 03/20/25 03/20/25 dapagliflozin propanediol 10 mg 10 mg PO DAILY 5 03/20/25 tablet (Farxiga) hydrocodone 5 mg-acetaminophen 325 1 tab PO Q8HP PRN M oderate Pain 03/20/25 03/20/25 mg tablet (Scale Score 5-6) metformin 750 mg tablet,extended 750 mg PO HS 03/20/25 03/20/25 release 24 hr triamterene 37.5 1 cap PO DAILY 03/20/2503/07 mg-hydrochlorothiazide 25 mg capsule venlafaxine 100 mg tablet 100 mg PO DAILY 03/20/25 Previous Rx's ?Medication ?Instructions ?Recorded clopidogrel 75 mg tablet (Plavix) 75 mg PO DAILY #30 t abs 07/01/22 pantoprazole 40 mg tablet,delayed 40 mg PO DAILY #30 t abs 07/01/22 release (Protonix) amlodipine 2.5 mg tablet (Norvasc) 2.5 mg PO DAILY #90 tabs 12/23/24 cefdinir 300 mg capsule 300 mg PO BID #18 caps 03/21 hydrocodone 5 mg-acetaminophen 325 1 tab PO Q6H PRN pa in #13 tabs 03/21/25 mg tablet Allergies Allergy/AdvReac Type Severity Reaction Status Date / [facility] Verified 10/11/24 14:36 codeine Allergy Verified 10/11/24 14:36 Gadolinium-Containing Allergy Verified 10/11/24 14:36 Contrast Medi Iodinated Contrast Media Allergy Verified 10/11/24 14:36 Penicillins Allergy Verified 10/11/24 14:36 Sulfa (Sulfonamide Allergy Verified 10/11/24 14:36 Antibiotics) sulfamethoxazole (From Allergy Verified 10/11/24 14:36 Bactrim) trimethoprim (From Bactrim) Allergy Verified 10/11/24 14:36 PFSH [facility] Disclaimer: The information contained in this section may have been updated after the patient was seen, as this information can be updated by other users. 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 (Updated 04/13/25 @ 19:18 by HEIDI Mike) Right shoulder pain Hypomagnesemia Sinus tachycardia Edema E. coli UTI Nasal fracture Pleural effusion Severe sepsis with acute organ dysfunction Acute respiratory distress syndrome (ARDS) Septic shock Hyperglycemia Dyspnea Dependent edema Mixed acid base balance disorder Hypercapnia Acute on chronic respiratory failure with hypoxemia COPD exacerbation Acute respiratory failure Abnormal electrocardiogram [ECG] [EKG] Prediabetes Palpitations Chest pressure Abnormal result of cardiovascular function study CAD (coronary atherosclerotic disease) Palpitations Atypical angina Hyperlipidemia Hypertension Diastolic dysfunction Surgical History H/O heart artery stent Status post renal artery angioplasty Family History Other No significant family history Social History Smoking Status: Never smoker how long ago did patient quit smokin years ago alcohol intake: never substance use type: denies use current occupational status: other Travel in the last 8 weeks?: None household members: other housing: other Have you lived/traveled outside US in past 30 days?: No Contact w/someone who lives/traveled outside US past 30 days?: No Exposure to someone with infectious disease in past 14 days?: No Do you have a fever (greater than 100.4 F or 38 C)?: No Have you tested positive for COVID-19?: No Exposed to someone with COVID-19 in past 14 days?: No Do you have a sore throat?: No Do you have a cough?: No Do you have any weakness?: No Do you have any diarrhea?: No Are you experiencing any unusual bleeding?: No Do you have any muscle aches/pain?: No Do you have any abdominal pain?: No Are you experiencing loss of taste or smell?: No Other 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 Have you received the Flu Vaccine for this season: No Have you received the Pneumonia Vaccine: No ROS Obtained: Yes All systems reviewed & no additional complaints except as documented Physical Exam General General appearance: alert and in no apparent distress Head Head exam: atraumatic and normocephalic Eye Eye exam: Present PERRL and EOMI ENT ENT exam: Present mucous membranes moist Neck Neck exam: Present normal inspection Chest Chest inspection: Present normal inspection and symmetric chest wall rise Respiratory Respiratory exam: Present normal lung sounds bilaterally; Absent respiratory distress, wheezes, stridor or accessory muscle use Cardiovascular Cardiovascular exam: Present normal rhythm, tachycardia and irregular rhythm Abdominal Exam Abdominal exam: Present soft; Absent tenderness, guarding or rebound Extremities Exam Extremities exam: Present normal inspection Neurological Exam Neurological exam: Present alert and oriented X3 Psychiatric Psychiatric exam: Present normal affect Skin Skin exam: Present warm and dry Medical Decision Making Medical Records Medical records reviewed: Yes I reviewed the patient's medical records. Screening: Per USPSTF and CDC recommendations, given the prevalence of disease in our region, it is our hospital?s policy to screen for HIV and viral Hepatitis for all patients aged 18 and over and those with ongoing risk factors. Nii Inquiry Pt receiving controlled substance: No Nii was queried for this patient: No Vital Signs: 04/13/25 17:19 04/13/25 17:39 04/13/25 17:50 Temperature 97.7 F Temperature Source Oral Pulse Rate 114 H Pulse Rate [Right] 142 H Respiratory Rate 28 H 17 18 Blood Pressure 138/89 130/72 Blood Pressure [Right Arm] 149/92 H Blood Pressure Mean [Right Arm] 111 02 Sat by Pulse Oximetry 97 Oxygen Delivery Method Room Air 04/13/25 18:03 04/13/25 18:31 Temperature Temperature Source Pulse Rate 94 H Pulse Rate [Right] Respiratory Rate 14 12 Blood Pressure 172/78 H 127/93 H Blood Pressure [Right Arm] Blood Pressure Mean [Right Arm] 02 Sat by Pulse Oximetry Oxygen Delivery Method Lab Data Lab results reviewed: Yes I reviewed the patient's lab results. Lab Results 04/13/25 17:26: WBC 11.1 H, RBC 4.91, Hgb 15.2, Hct 44.9, MCV 91.4, MCH 31.0, MCHC 33.9, RDW 13.2, Plt Count 276, MPV 9.5, Neut % (Auto) 70.2, Lymph % (Auto) 19.6, [place] % (Auto) 6.7, Eos % (Auto) 2.5, Baso % (Auto) 0.5, Neut # (Auto) 7.8, Lymph # (Auto) 2.2, [place] # (Auto) 0.7, Eos # (Auto) 0.3, Baso # (Auto) 0.1, D- Dimer 0.84 H, Sodium 137, Potassium 4.0, Chloride 101, Carbon Dioxide 25, Anion Gap 15.0, BUN 29 H, Creatinine 1.30 H, Estimated Creat Clear 61, Estimated GFR 40 L, Est GFR ( Amer) 48 L, Glucose 282 H, Calcium 10.5 H, Magnesium 1.1 L, Total Bilirubin 0.3, AST 24, ALT 23, Alkaline Phosphatase 109, Troponin I < 0.01, NT-Pro-B Natriuret Pep 235, Total Protein 8.1, Albumin 4.5, Globulin 3.6 H , Albumin/Globulin Ratio 1.3, Lipase 148, TSH 0.02 L, Thyroxine (T4) 11.0, HCV Ab DEEPAK w/Rflx PCR Qn Negative, HIV Ag/Ab Combo Qual Negative 04/13/25 18:40: Urine Color Yellow, Urine Appearance Clear, Urine pH 6.0, Ur Specific [place] 1.010, Urine Protein Negative, Urine Glucose (UA) 3+, Urine Ketones Negative, Urine Blood Trace-l, Urine Nitrate Negative, Urine Bilirubin Negative, Urine Urobilinogen 0.2, Ur Leukocyte Esterase Negative, Urine RBC None, Urine WBC 3-5, Ur Squamous Epith Cells 3-5, Urine Bacteria Trace 04/13/25 17:26 04/13/25 17:26 Orders (Tests/Meds): ED MEDICATIONS Discontinued Medications Generic Name Dose Route Start Last Admin Trade Name Freq PRN Reason Stop Dose Admin Magnesium Sulfate 2 gm in 50 mls @ 50 mls/hr 04/13/25 18:06 04/13/25 18:52 Magnesium Sulfate 2gm/50ml Premix IV 04/13/25 19:05 50 mls/hr ONCE ONE Administration Metoprolol Tartrate 5 mg 04/13/25 17:27 04/13/25 17:37 Metoprolol Tartrate 5mg/5ml Vial IV 04/13/25 17:28 5 mg ONCE ONE Administration Metoprolol Tartrate 5 mg 04/13/25 17:46 04/13/25 17:52 Metoprolol Tartrate 5mg/5ml Vial IV 04/13/25 17:47 5 mg ONCE ONE Administration ORDERS Category Date Time Status XR chest portable Stat Exams 04/13/25 17:26 Completed Complete Blood Count Auto Diff Stat Lab 04/13/25 17:26 Completed Comprehensive Metabolic Panel Stat Lab 04/13/25 17:26 Completed D-Dimer Stat Lab 04/13/25 17:26 Completed HIV Combo Stat Lab 04/13/25 17:26 Completed Hepatitis C Ab Qual. W/ RFX Stat Lab 04/13/25 17:26 Completed Lipase Stat Lab 04/13/25 17:26 Completed Magnesium Stat Lab 04/13/25 17:26 Completed NT Pro Brain Natriuretic Pep. Stat Lab 04/13/25 17:26 Completed T4 (Thyroxine) Stat Lab 04/13/25 17:26 Completed TSH [Thyroid Stimulating Hormone] Stat Lab 04/13/25 17:26 Completed Troponin I Q3H Lab 04/13/25 20:30 Ordered Troponin I Q3H Lab 04/13/25 23:30 Ordered Troponin I Stat Lab 04/13/25 17:26 Completed Urinalysis and Microscopic Stat Lab 04/13/25 18:40 Completed Medical Decision Narrative: 75-year-old female presents emergency department with heart palpitations, shortness of breath, differential diagnosis include but not limited to, cardiac arrhythmia, electrolyte disturbance, ACS, PE, pneumonia, thyrotoxicosis, noncompliant with medications, among others. I discussed this patient's case with the attending physician Dr. Sahu, she saw and examined the patient as well, discussion with cardioversion versus rate control was had, patient does not wish to be cardioverted at this time. Will obtain basic laboratory studies, D-dimer, lipase, magnesium, proBNP, TSH, T4, troponin, CXR, UA, as well as EKG. I along the attending physician reviewed the patient's EKG at approximately 1719, patient has tachycardia to 142 bpm, appears to have atrial flutter 2-1, with RVR, QT interval within normal limits, thus will give 5 mg IV metoprolol for rate control. CBC is noted for mild leukocytosis 11.1 Patient had received another 5 mg of IV metoprolol, patient is now currently rate controlled at around 90-100bpm CMP is noted from albumin elevation of 29, creatinine ablation 1.3, Hyperglycemia at 282, hypercalcemia at 10.5, hypomagnesia 1.1, thus give 2 g IV magnesium. D-dimer is 0.84, however utilizing age-adjusted D-dimer criteria, VTE/PE is unlikely, and utilizing years criteria PE is unlikely. Troponin is less than 0.01, lipase within normal limits, proBNP within normal limits. TSH is decreased at 0.02 I reviewed the patient's chest x-ray along the corresponding radiologic report, no acute findings. Urinalysis unremarkable. Repeat EKG was reviewed by myself at 191, atrial fibrillation at 92 bpm, QT interval within normal limits, there is no STEMI. Patient is otherwise hemodynamically stable, clear to be discharged home to self-care, she will follow-up with apartment groundskeeper in the upcoming days/weeks. Patient was given strict ED return precautions. Patient will return to emergency with any worsening signs or symptoms. Patient will continue take all her medication as prescribed. Critical Care Critical Care Time Critical Care Time: No
--- NOTE | 2025-04-13 17:26 | XR_ITS ---
PROCEDURE INFORMATION: Exam: XR Chest Exam date and time: 04/13/2025 5:50 PM Age: 75 years old Clinical indication: Shortness of breath; Additional info: SOA TECHNIQUE: Imaging protocol: Radiologic exam of the chest. Views: 4 or more views. COMPARISON: CR XR CHEST PORTABLE 02/15/2024 9:55 PM FINDINGS: Lungs: Unremarkable. No consolidation. Pleural spaces: Unremarkable. No pleural effusion. No pneumothorax. Heart/Mediastinum: Unremarkable. No cardiomegaly. Bones/joints: Unremarkable. IMPRESSION: No acute findings.
--- OUTSIDE RECORDS SUMMARY | 2025-04-13 17:26 | XMS_ITS | Encounter Summary ---
Author Organization Healthcare Address [address] [place] [address] Care Team Providers Care Machine Boss Name Role Phone Heladio Palm MD Primary Care Provider + [phone] Reason for Visit * Reason Comments Med Refill Encounter Details Date Type Department Care Team (Late st Contact Info) Description 05/05/2024 Refill [facility] Rutledge Sandro 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
--- OUTSIDE RECORDS SUMMARY | 2025-04-13 17:26 | XMS_ITS | Clinical Summary ---
Author Organization [facility] Address [address] [place] [address] Care Team Providers Care Coating Engineer Name Role Phone Dano Romero MD Primary Care Provider [phone] Allergies Active Allergy Reactions Criticality Noted Date [...] (LIPITOR) 40 MG tablet 0 Active Biotin 90968 MCG tablet 1 Active carvedilol (COREG) 25 [...] Essential hypertension 02/24/2018 Laryngeal spasm 02/24/2018 Immunizations Immunization Administration Dates Next Due FLUAD TRI 65YR+ [...] 116 10/13/2019 12:49 AM EST Temperature 36.9 C (98.4 F) 10/12/2019 5:05 PM EST Respiratory Rate 16 10/13/2019 12:49 AM EST Oxygen Saturation 92% 10/13/2019 12:49 AM EST Inhaled Oxygen Concentration - - Weight 130 kg (286 lb) 10/12/2019 5:05 PM EST Height 156.2 cm (5' 1.5 ) 10/12/2019 5:05 PM EST Body Mass Index 53.16 10/12/2019 5:05 PM EST Plan of Treatment Health Maintenance Due Date Last Done Comments DXA SCAN 1950 DIABETIC FOOT EXAM 1959 URINE MICROALBUMIN-CREATININ E RATIO (uACR) 1959 TDAP/TD VACCINES (1 - Tdap) 02/02/1968 COLOGUARD 1994 COLON CANCER SCREENING 5 YEA R SIGMOIDOSCOPY 1994 CT COLONOGRAPHY 1994 FECAL OCCULT BLOOD TEST 1994 FIT Testing (1 year) 1994 Pneumococcal Vaccine 50+ (2 of 2 - PPSV23) 07/22/2016 05/27/2016 ZOSTER VACCINE (2 of 3) 06/18/2017 04/23/2017 ANNUAL WELLNESS VISIT 02/24/2019 02/24/2018 DIABETIC EYE EXAM 01/12/2020 01/11/2019, , 01/05/2019 LIPID PANEL 11/23/2020 11/24/2019, 03/07, 02/24/2018, Additional history exists HEMOGLOBIN A1C 07/17/2021 01/14/2021, 02/0 05/2021, 07/24/2020, Additional history exists RSV Vaccine - Adults (1 - 1- dose 75+ series) 02/02/2024 COVID-19 Vaccine (4 - 2023-2 5 season) 2024 06/27/2021, 11/01/2020, 10/04/2020 INFLUENZA VACCINE 06/07/2025 06/27/2021, , 06/04/2020, Additional history exists COLONOSCOPY 04/28/2027 04/28/2022, 05/19/2018 COLORECTAL CANCER SCREENING 04/28/2027 HEPATITIS C SCREENING Completed 12/13/2019 , 12/21/2018, 12/21/2018 MAMMOGRAM Discontinued 11/28/2021, 11/06, 10/13/2014 [facility] Discontinued Procedures Procedure Name Priority Date/Time Associated [...] 4:16 PM EDT Negative bilateral mammogram. RECOMMENDATION: Continue annual screening mammography. BI-RADS CATEGORY 1, NEGATIVE. CAD was utilized. The standard false-negative rate of mammography is between 10% and 25%. Complex patterns or increased breast density will markedly elevate the false-negative rate of mammography. A letter, in lay terminology, with the results of this exam will be mailed to the patient. This report was finalized on 11/30/2021 4:16 [...] in conjunction with computer aided detection. FINDINGS: There are scattered areas of fibroglandular density. No suspicious masses, microcalcifications or areas of architectural distortion are present. Dano Romero MD IMG MAMMOGRAPHY ORDERABLES Final Result * (ABNORMAL) Hemoglobin A1c (09/07/2019 4:10 PM EST) Hemoglobin A1C 9.10(H) 4.80 - 5.60 % 09/07/2019 4:51 PM EST [facility] Blood Venipuncture / Unknown 09/07/2019 4:10 PM EST 09/07/2019 4:19 PM EST Narrative [facility] - 09/07/2019 4:51 PM EST Hemoglobin A1C Ranges: Increased Risk for Diabetes 5.7% to 6.4% Diabetes >= 6.5% Diabetic Goal < 7.0% Sammie Morales DNP, [employer] LAB BLOOD ORDERABLES Fi nal Result [facility]
[address] [place] [address], * SCANNED - INFLUENZA (06/24/2019) Huber Grossman MD CHART REVIEW TABS Final Re sult * (ABNORMAL) Lipid Panel (03/25/2019 10:33 AM EDT) Total Cholesterol 152 0 - 200 mg/dL 03/25/2019 6:52 PM EDT [facility] Triglycerides 165(H) 0 - 150 mg/dL 03/25/2019 6:52 PM EDT [facility] HDL Cholesterol 37(L) 40 - 60 mg/dL 03/25/2019 6:52 PM EDT [facility] LDL Cholesterol 82 0 - 100 mg/dL 03/25/2019 6:52 PM EDT [facility] VLDL Cholesterol 33 5 - 40 mg/dL 03/25/2019 6:52 PM EDT [facility] LDL/HDL Ratio 2.22 03/25/2019 6:52 PM EDT [facility] Blood Left upper arm structure / Unknown Venipuncture / Unknown 03/25/2019 10:33 AM EDT 03/25/2019 10:33 AM EDT Narrative [facility] - 03/25/2019 6:52 PM EDT Cholesterol Reference Ranges (U.S. Department of Health and Human Services ATP III Classifications) Desirable <200 mg/dL Borderline High 200-239 mg/dL High Risk >240 mg/dL Triglyceride Reference Ranges (U.S. Department of Health and Human Services ATP III Classifications) Normal <150 mg/dL Borderline High 150-199 mg/dL High 200-499 mg/dL Very High >500 mg/dL HDL Reference Ranges (U.S. Department of Health and Human Services ATP III Classifcations) Low <40 mg/dl (major risk factor for CHD) High >60 mg/dl ('negative' risk factor for CHD) LDL Reference Ranges (U.S. Department of Health and Human Services ATP III Classifcations) Optimal <100 mg/dL Near Optimal 100-129 mg/dL Borderline High 130-159 mg/dL High 160-189 mg/dL Very High >189 mg/dL Huber Grossman MD LAB BLOOD ORDERABLES Final Re sult [facility]
[address] [place] [address], * SCANNED - EYE EXAM (01/05/2019) Anatomical Region Laterality Modality Other Huber Grossman MD CHART REVIEW TABS Final Re sult * Hepatitis C Antibody (12/21/2018 10:57 AM EDT) Hepatitis C Ab Non-Reacti ve Non-Reacti ve 12/21/2018 7:17 PM EDT [facility] Blood Right upper arm structure / Unknown Venipuncture / Unknown 12/21/2018 10:57 AM EDT 12/21/2018 10:58 AM EDT us Huber Grossman MD LAB BLOOD ORDERABLES Final Re sult [facility]
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 09/08/2019 09/08/2019 Insurance MEDICARE A & B [facility] Advance Directives * CPR (Attempt to Resuscitate) [...] pulse or is breathing): Full Care Teams Coating Engineer Relationship Specialty Start Date End Date Dano Romero MD [address] [place] [address] PCP - General Internal Medicine 09/29/19
--- OUTSIDE RECORDS SUMMARY | 2025-04-13 17:26 | XMS_ITS | Clinical Summary ---
Author Organization [facility] Address [address] [place] [address] Care Team Providers Care Polisher Eyeglass Frames Name Role Phone Heladio Palm MD Primary Care Provider + [phone] Allergies Active Allergy Reactions Criticality Noted Date [...] 80 MG tabletIndicatio ns:Coronary artery disease involving wales coronary artery of wales heart without angina pectoris TAKE 1 TABLET [...] Type Department Care Team Description 03/13/2025 Telephone [facility] [address], [address] [place] [address] Alejandra Camacho MD 03/12/2025 Travel 03/02/2025 Telephone [facility] [address] [place] [address] Luis Olivares MD 02/27/2025 Orders Only [facility] [address], [address] [place] [phone] Whitney Doan Hypercalcemia (Primary Dx) 02/27/2025 [facility] [address], [address] [place] [phone] Alejandra Camacho MD [facility] Clinical Concern/Question 02/16/2025 [facility] [address], [address] [place] [phone] Daxa Martin MBBS 02/09/2025 [facility] [address], [address] [place] [phone] Lashonda William, [employer] P[employer]ER 02/09/2025 [facility] [address], [address] [place] [phone] Lashonda William, ASPHALT PAVER 02/02/2025 [facility] [address], [address] [place] [phone] Whitney Doan 02/02/2025 Travel 01/30/2025 Travel from Last 3 Months Immunizations Immunization [...] Description 01/26/2026 11:00 AM EDT Office Visit [facility] [address] [place] [address] Luis Olivares MD [address] [place] [address] Health Maintenance Due Date Last Done Comments [facility]-Bone Density Scan 1950 [facility]-/Child/Adol SDOH Screenings 1950 Diabetes: Dental Exam 1959 [facility]- SDOH Screenings 1967 [facility]-Adult SDOH Screenings 1967 [facility]-DTaP,Tdap,and Td Vaccines (1 - Tdap) 02/02/1968 [facility]-Hepatitis A Vaccines (1 of 2 - Risk 2-dose series) 02/02/1968 [facility]-Pneumococcal Vaccine: 50+ Years (2 of 2 - PPSV23) 07/22/2016 05/27/2016 [facility]-Medicare Annual Wellness (AWV) 02/24/2019 02/24/2018 [facility]-Diabetes: Hemoglobin A1C 05/22/2020 11/23/2019, 11/23/2019, 09/07/2019, Additional history exists [id number] Vaccine ( season) 2024 06/27/2021, 11/01/2020, 10/04/2020 [facility]-Zoster Vaccines (3 of 3) 06/14/2024 04/19/2024, 04/23/2017 [facility]-Influenza Vaccine (#1) 05/08/202507/19, 06/27/2021, 06/04/2020, Additional history exists [facility]-Depression Screening 08/08/2025 08/08/2024, 10/0 02/2023 [facility]-Hepatitis C Screening Completed 12/13/2019, [facility]-Breast [...] ORDERABLES Final Resu lt Performing Organization Address [facility] Co de Phone Number [phone] * (ABNORMAL) Hemoglobin A1c (11/23/2019 2:45 PM [...] <6.0% Children and Adolescents <7.5% . Source: [place] [employer]. Standards of medical care in diabetes, 2017. Diabetes Care.2017:40 (suppl 1):S1-S135. . HbA1c assay performed by an ion-exchange chromatography method that is certified traceable to the DCCT. 11/23/2019 2:45 PM EDT 11/23/2019 2:59 PM EDT Deng Brumfield APRN LAB BLOOD ORDERABLES Fadia ramirez Result SUNQUEST from Last 3 Months or Most Recently Relevant to Health Maintenance [place] [address] [employer] Care Teams Polisher Eyeglass Frames Relationship Specialty Start Date End Date Heladio Palm MD [address] [place] [address] PCP - General Internal Medicine 05/02/22
--- OUTSIDE RECORDS SUMMARY | 2025-04-13 17:26 | XMS_ITS | Patient Health Record ---
Author Organization [facility] Address [address] [place] [address] Care Team Providers Care Author'S Agent Name Role Phone Heladio Palm Primary Care [...] ve Results Component Value Reference Range Notes H-MALBCREA Reviewed date:02/04/2025 10:26:08 AM Interpretation: Performing Lab: Notes/Report: Severely Increased: >300 Moderately Increased: 30 - 300 Units: mg/g creat Normal: 0 - 29 UCREAT 76 Not Estab. mg/dL Random urine reference range not established. 24 hour urine samples recommended. MICROALB 6.500 0-16.7 mg/L MALBCREAT 8.5 H-IPTH Reviewed date:02/04/2025 10:26:08 AM Interpretation: Performing Lab: Notes/Report: PTHINT 5.7 7.5-53.5 pg/mL M-Total Protein,Urine Random Reviewed date:02/04/2025 10:26:08 AM [...] 10-20 0-5 #/hpf UBACT 4+ NONE /lpf M-Renal Function Panel Reviewed date:02/04/2025 10:26:09 AM Interpretation: Performing Lab: Notes/Report: BUN 28 7-17 mg/dl CREATT 1.10 0.52-1.04 mg/dl GFRAA 58 >60 ML/MIN EGFR 48 >60 ml/min GLU 143 74-100 mg/dl CA 9.9 8.4-10.2 mg/dl PHOS 3.7 2.5-4.5 mg/dl ALB 4.1 3.5-5.0 g/dl NA 137 136-145 mmol/L K 4.3 3.5-5.1 mmoL/L CL 102 98-107 mmol/L CO2 27 22.0-30.0 mmol/L GAP 12.3 5-15 mEq/L M-Complete Blood Count w/o D iff Reviewed date:02/04/2025 10:26:08 AM Interpretation: Performing Lab: Notes/Report: WBC 9.6 4.8-10.8 K/mm3 RBC 4.79 4.20-5.40 M/mm3 HGB 14.2 12.2-16.2 g/dL HCT 44.4 37.0-47.0 % MCV 92.7 81-99 fl MCH 29.6 27.0-31.2 pg MCHC 32.0 31.8-35.4 g/dL RDW 13.0 11.5-17.5 % PLT 242 142-424 K/mm3 RDW-SD 44.4 NRBC% 0 NRBC# 0 HEMOGLOBIN A1c (496) Reviewed date:03/14/2025 04:29:01 PM Interpretation: Performing Lab:CB, [place] [id number] [address] [facility], [place] CnsfVF[address] Brady Brown Notes/Report: FASTING: YES FASTING:YES NON-FASTING; NON-FASTING; NON-FASTING; NON-FASTING; NON-FAST HEMOGLOBIN A1c 7.9 <5.7 % For someone [...] for children. VITAMIN B12/FOLATE, SERUM PA REGIS (7065) Reviewed date:03/14/2025 04:29:01 PM Interpretation: Performing Lab:LV, [place] [id number] [address] [facility], [facility] CenterGegxKP[address] Brady Brown Notes/Report: NON-FASTING; NON-FASTING; NON-FASTING; NON-FASTING; NON-FAST FASTING:YES FASTING: YES VITAMIN B12 092 094-4847 pg/mL Please Note: Although the reference range [...] Reviewed date:03/14/2025 04:29:01 PM Interpretation: Performing Lab:LV [facility] [place] [id number], [facility] HospitalPhpqJU[address] Brady Brown Notes/Report: NON-FASTING; NON-FASTING; NON-FASTING; NON-FASTING; [...] D, (D2,D3), LC/MS/MS is recommended: order code 83658 (patients >2yrs). See Note 1 Note 1 For additional information, please refer to http://education.WhoKnows/faq/FAQ1 99 (This link is being provided for informational/ educational purposes only.) THYROID PANEL WITH TSH (7444 ) Reviewed date:03/14/2025 04:29:00 PM Interpretation: Performing Lab:LV [place]Contratan.doe1355 [employer] [place], [place] MpotOW[address] Brady Brown Notes/Report: NON-FASTING; NON-FASTING; NON-FASTING; NON-FASTING; NON-FAST FASTING:YES FASTING: YES T3 UPTAKE 31 22-35 % T4 (THYROXINE), TOTAL 7.8 5.1-11.9 mcg/dL FREE T4 INDEX (T7) 2.4 1.4-3.8 TSH 1.65 0.40-4.50 mIU/L LIPID PANEL, STANDARD (7600) Reviewed date:03/14/2025 04:29:00 PM Interpretation: Performing Lab:LV [place] [id number] [employer] [facility], Contratan.doExxmUB[address] Brady Brown Notes/Report: NON-FASTING; NON-FASTING; NON-FASTING; NON-FASTING; [...] equation in the estimation of LDL-C. Aryan BROUSSARD et al. CHRISTINA. 2013;310(19): 7004-4222 (http://education.Adallom/faq/FAQ 164) CHOL/HDLC RATIO 4.2 <5.0 (calc) NON HDL CHOLESTEROL 123 <130 mg/dL (calc) For patients with diabetes plus 1 major ASCVD risk factor, treating to a non-HDL-C goal of <100 mg/dL (LDL-C of <70 mg/dL) is considered a therapeutic option. COMPREHENSIVE METABOLIC PANE Soraida (43341) Reviewed date:03/14/2025 04:29:00 PM Interpretation: Performing Lab:LV [place] [place] [id number] [employer], [place] AnjgYH[address] Brady Brown Notes/Report: NON-FASTING; NON-FASTING; NON-FASTING; NON-FASTING; [...] Reviewed date:03/14/2025 04:29:01 PM Interpretation: Performing Lab:LV [place] [id number] [employer] [place], Contratan.doCbpxKN[address] Brady Brown Notes/Report: NON-FASTING; NON-FASTING; NON-FASTING; NON-FASTING; [...] MPV 9.5 7.5-12.5 fL ABSOLUTE NEUTROPHILS 6720 8709-8496 cells/uL ABSOLUTE LYMPHOCYTES 2100 850-3900 cells/uL ABSOLUTE MONOCYTES 660 200-950 cells/uL ABSOLUTE EOSINOPHILS 460 15-500 cells/uL ABSOLUTE BASOPHILS 60 0-200 cells/uL NEUTROPHILS 67.2 LYMPHOCYTES 21.0 MONOCYTES 6.6 EOSINOPHILS 4.6 BASOPHILS 0.6 PTH, INTACT WITHOUT CALCIUM (34773) Reviewed date:03/14/2025 04:29:01 PM Interpretation: Performing Lab:CB, [facility] Chvc0431 [facility] Brady Brown Notes/Report: NON-FASTING PARATHYROID HORMONE, INTACT 54 16-77 pg/mL Interpretive Guide Intact PTH Calcium ------- Normal Parathyroid Normal Normal Hypoparathyroidism Low or Low Normal Low Hyperparathyroidism Primary Normal or High High Secondary High Normal or Low Tertiary High High Non-Parathyroid Hypercalcemia Low or Low Normal High M-Urine Culture Reviewed date:02/08/2025 01:59:16 PM Interpretation: Performing Lab: Notes/Report: CUU ORGANISM 1: Escherichia coli RX CA: R- Resistant S- Susceptible I- Intermediate * Not on [facility] CUU Bard Count 50,000 - 60,000 RX CA: R- Resistant S- Susceptible I- Intermediate * Not on [facility] CUU RX CA: R- Resistant S- Susceptible I- Intermediate * Not on [facility] CUU RX CA: R- Resistant S- Susceptible I- Intermediate * Not on [facility] Escherichia coli: REACTION RX CA: R- Resistant S- Susceptible I- Intermediate * Not on [facility] Amikacin <=8 S RX CA: R- Resistant S- Susceptible I- Intermediate * Not on [facility] Ampicillin >16 R RX CA: R- Resistant S- Susceptible I- Intermediate * Not on [facility] Aztreonam <=2 S RX CA: R- Resistant S- Susceptible I- Intermediate * Not on [facility] Cefepime <=1 S RX CA: R- Resistant S- Susceptible I- Intermediate * Not on [facility] Ceftazidime <=2 S RX CA: R- Resistant S- Susceptible I- Intermediate * Not on [facility] Ceftriaxone 4 R RX CA: R- Resistant S- Susceptible I- Intermediate * Not on [facility] Ciprofloxacin <=0.25 S RX CA: R- Resistant S- Susceptible I- Intermediate * Not on [facility] Ertapenem <=0.25 S RX CA: R- Resistant S- Susceptible I- Intermediate * Not on [facility] Gentamicin <=2 S RX CA: R- Resistant S- Susceptible I- Intermediate * Not on [facility] Levofloxacin <=0.5 S RX CA: R- Resistant S- Susceptible I- Intermediate * Not on [facility] Meropenem <=0.5 S RX CA: R- Resistant S- Susceptible I- Intermediate * Not on [facility] Nitrofurantoin <=16 S RX CA: R- Resistant S- Susceptible I- Intermediate * Not on [facility] Tetracycline <=2 S RX CA: R- Resistant S- Susceptible I- Intermediate * Not on [facility] Tobramycin <=2 S RX CA: R- Resistant S- Susceptible I- Intermediate * Not on [facility] Trimethoprim/Sulfame th oxazole >238 R RX CA: R- Resistant S- Susceptible I- Intermediate * Not on [facility] CUU Piperacillin/Tazobac ta m <=2/4 S RX CA: R- Resistant S- Susceptible I- Intermediate * [facility] RX CA: R- Resistant S- Susceptible I- Intermediate * [facility] : Head, Without Contrast Reviewed date:12/06/2024 12:21:22 PM Interpretation: Performing Lab: Notes/Report: M-1,25-Dihydroxy,Vitamin D b y MS Reviewed date:02/07/2025 07:26:01 PM Interpretation: Performing Lab: Notes/Report: [id number] 26 . pg/mL Reference Range: Adults: 21 - 65 [id number] <10 . pg/mL This test was developed and its performance characteristics determined by [facility]. It has not been cleared or approved by the Food and Drug Administration. [id number] 24 . pg/mL This test was developed and its performance characteristics determined by [facility]. It has not been cleared or approved by the Food and Drug Administration. Performed at: [facility] [address] [place] [id number] Pail Tester: Jerson Cameron MD, Phone: [phone] CAROTID DUPLEX Reviewed date:12/06/2024 12:21:22 PM Interpretation: Performing Lab: Notes/Report: BASIC METABOLIC PANEL (08779 ) Reviewed date:04/22/2024 10:23:59 AM Interpretation: Performing Lab:CB, [facility] Hcxp1844 [facility], [facility] HospitalRkujYH[address] Brady Brown Notes/Report: NON-FASTING; NON-FASTING GLUCOSE 159 [...] Reviewed date:04/22/2024 10:23:59 AM Interpretation: Performing Lab:LV [facility] Iuuc8276 [address] Blrudy, Joaquín JonesRnbaAB[address] Brady Brown Notes/Report: NON-FASTING; NON-FASTING HEMOGLOBIN A1c [...] change in test platforms from the Baker [employer] to the Bela jose c503 may have shifted HbA1c results compared to historical results. Based on laboratory validation testing conducted at [facility], the Bela platform relative to the Baker platform had an average increase in HbA1c value of < or = 0.3%. This difference is within accepted variability established by the National Glycohemoglobin Standardization Program. Note that not all individuals will have had a shift in their results and direct comparisons between historical and current results for testing conducted on different platforms is not recommended. Reason For Referral Reason Needs MRI of brain, no contrast and carotid Doppler at [facility] for morning headaches with visual disturbance Diagnosis 1 Nonintractable episo dic headache, unspecified headache type (R51.9) Referral Organization [facility] Referring Provider First Name Heladio Referring Provider Last Name Arpita Referring Provider Speciality Internal edicine General Notes Carmen Harvey 07/2025 04:02:30 PM > faxed to [facility] and they will call her Referral Priority Routine Reason Labral tear, loose b silas in shoulder joint and multiple rotator cuff tears, see Dr. Ace Royal at Diagnosis 1 Traumatic tear of ri ght rotator cuff, unspecified tear extent, initial encounter (S46.011A) Referral Organization [facility] Referring Provider First Name Heladio Referring Provider Last Name Arpita Referring Provider Speciality Internal edicine General Notes Carmen Harvey 08/2025 02:53:47 PM > faxed and they will call her to schedule Referral Priority Routine Reason DExa scan at [facility] Diagnosis 1 Chronic kidney disea se, stage 3b (N18.32) Referral Organization [facility] Referring Provider First Name Heladio Referring Provider Last Name Arpita Referring Provider Speciality Internal M edicine Referred Organization [facility] Referred Address [address] [facility] [address], [place],[address], Referred Provider Specialty Diagnostic R adiology Referral Priority Routine Medications Medication SIG (Take, Route, Frequency, Duration) Notes Start Date End Date Status Zinc 50 MG 1 tab(s) orally once a day; Duration: 30 day(s) Active Clopidogrel Bisulfate 75 MG 1 tab(s) orally once a day; Duration: 90 days 10/04/2024 Active Ozempic (0.25 or 0.5 MG/DOSE) 2 MG/3ML 0.25mg Subcutaneous weekly; Duration: 90 days 03/30/2025 Active Carvedilol 25 MG 1 tab(s) orally 2 times a day; Duration: 90 days Active Vitamin D3 50 MCG (2000 UT) as directed orally once a day; Duration: 30 day(s) Active Farxiga 10 MG TAKE 1 TABLET BY MOUTH ONCE DAILY; Duration: 90 Active Vitamin C 500 MG 1 tab(s) orally once a day; Duration: 30 day(s) Active Venlafaxine HCl 100 MG 1 tab(s) orally once a day; Duration: 30 days Active Magnesium Oxide 400 MG 2tabs orally once a day; Duration: 30 days Active Losartan Potassium 50 MG TAKE 1 TABLET BY MOUTH ONCE DAILY; Duration: 90 Active Acetaminophen 500 MG 2 tab(s) orally every 6 hours prn Active Levothyroxine Sodium 100 MCG 1 tab(s) orally once a day; Duration: 90 days Active CONSERVING DEVICE DIRECTED DIRECTED *Please review for potential replacement for e-prescription and drug interaction check* 03/22/2020 Active Diflucan 150 MG 1 tablet Orally daily; Duration: 3 days 03/22/2025 Active PEN NEEDLE 6MM 31G - ONCE A DAY; Duration: 30 DAY(S) *Please review for potential replacement for e-prescription and drug interaction check* 02/13/2020 Active Triamterene-HCTZ 37.5-25 MG TAKE 1 CAPSULE BY MOUTH ONCE DAILY; Duration: 90 Active Clindamycin HCl 300 MG 1 capsule Orally every 12 hrs Active Pantoprazole Sodium 40 MG 1 tab(s) orally once a day; Duration: 90 days Active HYDROcodone-Acetamino phen 5-325 MG 1 tablet as needed Orally every 6 hrs Active metFORMIN HCl ER 750 MG 1 tab(s) orally once a day; Duration: 90 days 07/19/2024 Active Biotin 1000 MCG 1 tab(s) orally once a day Active amLODIPine Besylate 2.5 MG 1 tab(s) orally once a day Active Atorvastatin Calcium 40 MG 1 tab(s) orally once a day; Duration: 90 days Active Diflucan 150 MG 1 tablet Orally daily; Duration: 5 days 04/12/2025 Active Immunizations Vaccine Route Administration Date Status [...] Status Risk Notes Problem Diabetic renal disease (727487117) Type 2 diabetes mellitus with diabetic chronic kidney disease (E11.22) Active confirmed Problem Paroxysmal atrial fibrillation (101358245) Paroxysmal atrial fibrillation (I48.0) Active confirmed Problem Hypothyroid (45440073) Hypothyroid (E03.9) Active confirmed Problem Atrial fibrillation (disorder) (22115892) Afib (I48.91) Active confirmed Problem Morbid obesity (080458886) Morbid obesity (E66.01) Active confirmed Problem Neuropathy (467497706) Neuropathy (G62.9) Active confirmed Problem Essential hypertension (71623140) Essential hypertension (I10) Active confirmed Problem Type 2 diabetes mellitus (32962846) Type 2 diabetes mellitus (E11.9) Active confirmed Problem Atherosclerosis of coronary artery without angina pectoris (080445818304516) Atherosclerosis of [place] coronary artery of [place] heart without angina pectoris (I25.10) Active confirmed Problem Obstructive sleep apnea (88601595) Obstructive sleep apnea (G47.33) Active confirmed Problem Uncomplicated moderate persistent asthma (588360205) Moderate persistent asthma without complication (J45.40) Active confirmed Problem Acute depression (800193983) Acute depression (F32.9) Active confirmed Problem Chronic renal failure syndrome (02028149) Chronic kidney disease, unspecified CKD stage (N18.9) Active confirmed Problem Chronic hypercapnic respiratory failure (344789119) Hypercapnic respiratory failure, chronic (J96.12) Active confirmed Problem Chronic kidney disease stage 3B (disorder) (115974350) Chronic kidney disease, stage 3b (N18.32) Active confirmed Vital Signs Heart Rate 74 /min 03/30/2025 Temperature 98.6 degrees Fahrenheit 03/30/2025 Blood pressure diastolic 80 mm Hg 03/30/2025 Height 5 ft 3 in in 03/30/2025 Blood pressure systolic 124 mm Hg 03/30/2025 Weight 234 lbs 03/30/2025 BMI 41.45 kg/m2 03/30/2025 Encounters Encounter Location Date Provider Diagnosis [place] [id number] [facility] [address] [place] [address] 12/10/2024 Provider Migration [address] [address] 04/19/2024 Heladio Palm Sensation of fullnes s in left ear H93.8X2 ; Chronic kidney disease, unspecified CKD stage N18.9 ; Type 2 diabetes mellitus E11.9 ; Essential hypertension I10 ; Paroxysmal atrial fibrillation I48.0 and Encounter for immunization Z23 [address] [address] 07/19/2024 Heladio Palm Type 2 diabetes mellitus with diabetic chronic kidney disease E11.22 ; Chronic kidney disease, stage 3b N18.32 ; Immunization(s) administered Z23 ; Paroxysmal atrial fibrillation I48.0 and Essential hypertension I10 [address] [address] 11/15/2024 Heladio Palm Nonintractable episo dic headache, unspecified headache type R51.9 and Traumatic tear of right rotator cuff, unspecified tear extent, initial encounter S46.011A [facility] [address] [address] 03/02/2025 Heladio Paml Chronic kidney disea se, stage 3b N18.32 ; Type 2 diabetes mellitus with diabetic chronic kidney disease E11.22 ; Paroxysmal atrial fibrillation I48.0 ; Atherosclerosis of [place] coronary artery of [place] heart without angina pectoris I25.10 ; Hypothyroid E03.9 ; Obstructive sleep apnea G47.33 ; Encounter for immunization Z23 and Routine medical exam Z00.00 [facility] [address] [address] 03/30/2025 Heladio Palm Dental abscess K04.7 ; Type 2 diabetes mellitus with diabetic chronic kidney disease E11.22 and Hospital discharge follow-up Z09 [facility] [address] [place] [address] 05/06/2024 Heladio Besson [facility] [address] [place] [address] 05/30/2024 Heladio Besson [facility] [address] [address] 09/22/2024 Heladio Palm Type 2 diabetes mellitus with diabetic chronic kidney disease E11.22 [facility] [address] [place] [address] 10/04/2024 Heladio Besson [facility] [address] [address] 12/09/2024 Heladio Besson [facility] [address] [address] 02/08/2025 Heladio Besson [facility] [address] [place] [address] 03/20/2025 Heladio Besson [facility] [address] [place] [address] 03/21/2025 Heladio Besson [facility] [address] [address] 03/22/2025 Heladio Besson [facility] [address] [place], [place] [address] 03/22/2025 Heladio Rojasson [facility] [address] [place], [place] [address] 03/22/2025 Heladio Rojasson [facility] [address] [place], [place] [address] 04/12/2025 Heladio Palm Assessments Encounter Date Diagnosis (ICD Code) Assessment Notes Treatment Notes Treatment Clinical Notes Section Notes 07/19/2024 Chronic kidney disease, stage 3b (ICD-10 - N18.32) Continues to follow with nephrology and will see them next month. Continue Farxiga. 09/22/2024 Type 2 diabetes mellitus with diabetic [...] CKD stage (ICD-10 - N18.9) -Follows with [facility] -Last Cr 02/2024 1.57 (1.4 12/2023 [...] given history of chronic kidney disease z 03/30/2025 Type 2 diabetes mellitus with diabetic [...] for side effects and dose titration 03/30/2025 Dental abscess (ICD-10 - K04.7) Finish up antibiotics. Continues follow-up with dentistry. No changes in plan at this point 03/30/2025 Hospital discharge follow-up (ICD-10 - Z09) Personally reviewed H&P and discharge summary as available from hospital discharge documentation. Reviewed pertinent labs and test done in the hospital. Personally reconciled medication. 04/19/2024 Type 2 diabetes mellitus (ICD-10 - [...] -No changes to mediations 03/02/2025 Atherosclerosis of [place] coronary artery of [place] heart without angina pectoris (ICD-10 - I25.10) No current cardiac symptoms z 07/19/2024 Paroxysmal atrial fibrillation (ICD-10 - I48.0) Follows with cardiology, still considering Watchman device. Continue Carvedilol. 07/19/2024 Essential hypertension (ICD-10 - I10) Well controlled, continue current regimen. 03/02/2025 Hypothyroid (ICD-10 - E03.9) Clinically euthyroid z 04/19/2024 Paroxysmal atrial fibrillation (ICD-10 - I48.0) -Follows with [facility] cardiology and cardiology -On coreg. Not on [...] PANEL, STANDARD (7600) 11/18/2023 COMPREHENSIVE METABOLIC PANEL (02714) BASIC METABOLIC PANEL (24830) 01/29/2024 CBC (INCLUDES DIFF/PLT) (6399) HEMOGLOBIN A1c (496) 11/18/2023 TSH (899) 11/18/2023 Next Appt Details Provider Name:Heladio Palm, 05/11/2025 09:30:00 AM, [address] [facility], [place], [address], Provider Name:Heladio Palm, 05/25/2025 09:30:00 AM, [address] [facility] [address], [place], [address], Insurance Providers Payer Name Payer Address Payer Phone Subscriber Number Group Number Insured Name Patient Relationship to Insured Coverage Start Date Coverage End Date MEDICARE [place] [address] [place] [address] [phone] [id number] Mirtha Hernadez Self - patient is the insured [employer] [address] [address] [place] [address] [id number] Mirtha Hrenadez Self - patient is the insured Medical [...] EGD 2018 stent Hospitalization History Reason Date(Month/Year) Respiratory failure- [facility] the n transferred to - then to [facility] for rehab 08/2019 [facility] - 03/19- - left kidney- rupture- renal ablation 10/2019
[2025-04-13 17:35] LABS: Hematocrit 44.9 % (37.0-47.0); Hemoglobin 15.2 g/dL (12.2-16.2); Immature Granulocytes % 0.5 %; Mean Corpuscular HGB Conc 33.9 g/dL (31.8-35.4); Mean Corpuscular Hemoglobin 31.0 pg (27.0-31.2); Mean Corpuscular Volume 91.4 fl (81-99); Nucleated Red Blood Cells % 0 %; Platelet Count 276 K/mm3 (142-424); Red Blood Count 4.91 M/mm3 (4.20-5.40); Red Cell Distribution Width-SD 44.5 fL; White Blood Count 11.1 K/mm3 (4.8-10.8)
[2025-04-13] MEDS: METOPROLOL TARTRATE 5MG/5ML VIAL 5 MG IV ×2 (17:37→17:52)
[2025-04-13 17:39] VITALS: BP 138/89; RESP 17
[2025-04-13 17:50] VITALS: BP 130/72; PULSE 114; RESP 18
[2025-04-13 17:57] LABS: Alanine Aminotransferase 23 U/L (12-78); Albumin Level 4.5 g/dl (3.5-5.0); Albumin/Globulin Ratio 1.3 (1.1-1.8); Alkaline Phosphatase 109 U/L (38-126); Anion Gap 15.0 mEq/L (5-15); Aspartate Amino Transferase 24 U/L (14-36); Bilirubin,Total 0.3 mg/dl (0.2-1.3); Blood Urea Nitrogen 29 mg/dl (7-17); Calcium 10.5 mg/dl (8.4-10.2); Carbon Dioxide 25 mmol/L (22.0-30.0); Chloride 101 mmol/L (98-107); Creatinine Clearance Estimated 61 mL/min (50-200); Creatinine,Serum 1.30 mg/dl (0.52-1.04); Estimated Glomerular Filt Rate 40 ml/min (>60); GFR (African American) 48 ML/MIN (>60); Globulin 3.6 g/dL (1.3-3.2); Glucose 282 mg/dl (74-100); Lipase 148 U/L (23-300); Magnesium 1.1 mg/dl (1.6-2.3); Potassium 4.0 mmoL/L (3.5-5.1); Sodium 137 mmol/L (136-145); Total Protein,Serum 8.1 g/dl (6.3-8.2)
[2025-04-13 18:03] VITALS: BP 172/78; PULSE 94; RESP 14
[2025-04-13 18:03] LABS: D-Dimer 0.84 ug/mL (0.0-0.5)
[2025-04-13 18:10] LABS: NT Pro Brain Natriuretic Pep. 235 pg/mL (0-450)
[2025-04-13 18:12] LABS: Troponin I < 0.01 ng/ml (0.00-0.034)
[2025-04-13 18:14] LABS: T4 (Thyroxine) 11.0 ug/dl (5.53-11.0)
[2025-04-13 18:28] LABS: Thyroid Stimulating Hormone 0.02 uIU/mL (0.465-4.68)
[2025-04-13 18:31] VITALS: BP 127/93; RESP 12
--- NOTE | 2025-04-13 18:31 | ECG_ITS ---
APPROVED REPORT Exam: Resting ECG HR:142 bpm ECG Measurements Heart Rate 142 AXES QRSd 94 QRS 64 QT 193 T 0 QTc 275 Conclusion A flutter 2:1 with a rate of [address] or T wave changes concerning for ischemia Electronically signed by : Alyssa Sahu, 04/14/2025 01:02:49
[2025-04-13 18:46] LABS: Hepatitis C Ab Qual. W/ RFX NEGATIVE (Negative)
[2025-04-13 18:50] LABS: Microscopic, Urine URINE MICROSCOPIC (MICROSCOPIC)
[2025-04-13] MEDS: MAGNESIUM SULFATE IN WATER 2 GM/50 ML PIGGYBACK IV (18:52)
[2025-04-13 18:53] LABS: Bilirubin,Urine Negative (Negative); Color,Urine YELLOW (Yellow); Glucose,Urine (UA) 3+ (Negative); Ketones,Urine Negative (Negative); Leukocyte Esterase,Urine Negative (Negative); PH,Urine 6.0 (5.0-8.5); Protein,Urine Negative (Negative); Specific Gravity, Urine 1.010 (1.005-1.030); Urobilinogen,Urine 0.2 EU/dl (0.2)
--- NOTE | 2025-04-13 19:11 | ECG_ITS ---
APPROVED REPORT Exam: Resting ECG HR:92 bpm ECG Measurements Heart Rate 92 AXES QRSd 80 QRS 54 QT 316 T 70 QTc 366 Conclusion A-fib rate of [address] or T wave changes concerning for ischemia Electronically signed by : Alyssa Sahu, 04/14/2025 01:03:53
[2025-04-13 19:12] LABS: Bacteria,Urine Trace /lpf
--- NOTE | 2025-04-13 19:14 | PC.NURSE ---
Report received from Anna PICHARDO Pt awake and alert. Skin pink warm and dry Resp full and easy Speech clear and appropriate. IV site without redness or edema
[2025-04-13 19:20] VITALS: BP 130/80; PULSE 92; RESP 20; TEMP 36.9; O2SAT 94
== END 2025-04-13 19:50 | disposition home or self-care (01) ==
PROVIDERS: Physician Assistant; Emergency Provider Student in an Organized Health Care Education/Training Program; PCP Internal Medicine Adolescent Medicine
DX: R07.9 Chest pain, unspecified (principal); I48.0 Paroxysmal atrial fibrillation; I48.92 Unspecified atrial flutter; E11.65 Type 2 diabetes mellitus with hyperglycemia; E83.42 Hypomagnesemia; E83.52 Hypercalcemia; I10 Essential (primary) hypertension; E78.5 Hyperlipidemia, unspecified
CPT/HCPCS: 71045; 80053; 81001; 83690; 83735; 83880; 84436; 84443; 84484; 85025; 85378; 86803; 87389; 93005; 96365; 96375; 99285; J3475

== ENCOUNTER 2025-04-13 22:46 | Observation (INO) | payer MEDICARE, OTHER, SELFPAY ==
--- OUTSIDE RECORDS SUMMARY | 2019-05-11 19:56 | XMS_ITS | Encounter Summary ---
[facility] Address [address] [place] [address] Care Team Providers Care Pan Puller Name Role Phone Huber Grossman MD Primary Care Provider Barbara valladares Reason for Referral * Diagnostic Medical (Routine) - Closed Specialty Diagnoses / Procedures Referred By Contac t Referred To Contact Sleep Medicine Diagnoses DELL (obstructive sleep apnea) Procedures Polysomnography 4 or More Parameters Luis Galvan MD Phone: tel: fax: [facility] [address] [address] Phone: tel: fax: Referral ID Status Reason Start Date Expiration Date Visits Re quested Visits Authorized [id number] Closed 12/20/2018 12/20/2019 1 1 Reason for Visit * Diagnostic Medical (Routine) - Closed Specialty Diagnoses / Procedures Referred By Contac t Referred To Contact Sleep Medicine Diagnoses DELL (obstructive sleep apnea) Procedures Polysomnography 4 or More Parameters Luis Galvan MD Phone: tel: fax: [facility] [address] [address] Phone: tel: fax: Referral ID Status Reason Start Date Expiration Date Visits Re quested Visits Authorized [id number] Closed 12/20/2018 12/20/2019 1 1 Encounter Details Date Type Department Care Team (Late st Contact Info) Description 05/11/2019 7:56 PM EDT Hospital Encounter [facility] [address] [place] [phone] Luis Galvan MD [address] [place] [address] DELL (No follow-up); DELL (obstructive sleep apnea) [...] a home sleep study at [facility] a while ago which was apparently positive. [...] was noted to be present by the document management technician in attendance. D) Oxygen saturation: Oxygen [...] documented as of this encounter Care Teams Pan Puller Relationship Specialty Start Date End Date Huber Grossman MD PCP - General Family Medicine 02/08/18 09/28/19 documented as of this encounter
--- NOTE | 2025-04-13 22:43 | ECG_ITS ---
APPROVED REPORT Exam: Resting ECG HR:144 bpm ECG Measurements Heart Rate 144 AXES QRSd 123 QRS 62 QT 244 T 0 QTc 327 Conclusion Atrial flutter rate of 144, no acute ST or T wave changes concerning for ischemia Electronically signed by : Alyssa Sahu, 04/15/2025 02:15:58
[2025-04-13 22:45] VITALS: BP 160/106; PULSE 144; RESP 20; TEMP 36.8; O2SAT 96; BMI 44.1
--- NOTE | 2025-04-13 22:47 | HMH.EDGENADL ---
Discharge Plan Disposition Chief Complaint: Arrhythmia/Palpitations Discharge ED Provider: Alyssa Sahu General Adult HPI General Chief complaint: Arrhythmia/Palpitations Stated complaint: A fib Time Seen by Provider: 04/13/25 22:47 History of Present Illness HPI narrative: Patient is a 75-year-old female who presented to the emergency department with palpitations. Patient was just here in the emergency department discharged a few hours prior. Patient had similar symptoms and was discharged home. Patient states at home, she noticed that she felt lightheaded dizzy and she checked her heart rate and it was elevated in the 150s. Patient is not having any chest pain, shortness of breath abdominal pain nausea vomiting or diarrhea. Patient denies any headache or vision changes. Patient already takes carvedilol 25 mg twice daily which she has taken her normal doses today. Patient has otherwise not felt ill. Related Data Home Medications ?Medication ?Instructions ?Recorded ?Confirmed ascorbate calcium (vitamin C) 500 500 mg PO DAILY 05/22/22 03/20/25 mg tablet atorvastatin 40 mg tablet 40 mg PO HS 05/22/22 03/20/25 cholecalciferol (vitamin D3) 50 50 mcg PO DAILY 05/22/22 03/20/25 mcg (2,000 unit) capsule levothyroxine 100 mcg tablet 100 mcg PO DAILY 05/22/22 03/20/25 losartan 50 mg tablet 50 mg PO DAILY 05/22/22 03/20/25 carvedilol 25 mg tablet 25 mg PO BID 03/03/24 03/20/25 magnesium aspart,citrate,oxide 800 mg PO DAILY 03/03/24 03/20/25 clindamycin HCl 150 mg capsule 450 mg PO TID 03/20/25 03/20/25 dapagliflozin propanediol 10 mg 10 mg PO DAILY 03/20/25 03/20/25 tablet (Farxiga) hydrocodone 5 mg-acetaminophen 325 1 tab PO Q8HP PRN Moderate Pain 03/20/25 03/20/25 mg tablet (Scale Score 5-6) metformin 750 mg tablet,extended 750 mg PO HS 03/20/25 03/20/25 release 24 hr triamterene 37.5 1 cap PO DAILY 03/20/25 03/20/25 mg-hydrochlorothiazide 25 mg capsule venlafaxine 100 mg tablet 100 mg PO DAILY 03/20/25 03/20/25 Previous Rx's ?Medication ?Instructions ?Recorded clopidogrel 75 mg tablet (Plavix) 75 mg PO DAILY #30 tabs 07/01/22 pantoprazole 40 mg tablet,delayed 40 mg PO DAILY #30 tabs 07/01/22 release (Protonix) amlodipine 2.5 mg tablet (Norvasc) 2.5 mg PO DAILY #90 tabs 12/23/24 cefdinir 300 mg capsule 300 mg PO BID #18 caps 03/21/25 hydrocodone 5 mg-acetaminophen 325 1 tab PO Q6H PRN pain #13 tabs 03/21/25 mg tablet Allergies Allergy/AdvReac Type Severity Reaction Status Date / Time ciprofloxacin (From Cipro) Allergy Verified 10/11/24 14:36 codeine Allergy Verified 10/11/24 14:36 Gadolinium-Containing Allergy Verified 10/11/24 14:36 Contrast Medi Iodinated Contrast Media Allergy Verified 10/11/24 14:36 Penicillins Allergy Verified 10/11/24 14:36 Sulfa (Sulfonamide Allergy Verified 10/11/24 14:36 Antibiotics) sulfamethoxazole (From Allergy Verified 10/11/24 14:36 Bactrim) trimethoprim (From Bactrim) Allergy Verified 10/11/24 14:36 PFSH PFSH Disclaimer: The information contained in this section may have been updated after the patient was seen, as this information can be updated by other users. 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 (Updated 04/13/25 @ 19:18 by HEIDI Mike) Right shoulder pain Hypomagnesemia Sinus tachycardia Edema E. coli UTI Nasal fracture Pleural effusion Severe sepsis with acute organ dysfunction Acute respiratory distress syndrome (ARDS) Septic shock Hyperglycemia Dyspnea Dependent edema Mixed acid base balance disorder Hypercapnia Acute on chronic respiratory failure with hypoxemia COPD exacerbation Acute respiratory failure Abnormal electrocardiogram [ECG] [EKG] Prediabetes Palpitations Chest pressure Abnormal result of cardiovascular function study CAD (coronary atherosclerotic disease) Palpitations Atypical angina Hyperlipidemia Hypertension Diastolic dysfunction Surgical History H/O heart artery stent Status post renal artery angioplasty Family History Other No significant family history Social History Smoking Status: Former smoker how long ago did patient quit smokin years ago alcohol intake: never substance use type: denies use current occupational status: other Travel in the last 8 weeks?: None household members: other housing: other Have you lived/traveled outside US in past 30 days?: No Contact w/someone who lives/traveled outside US past 30 days?: No Exposure to someone with infectious disease in past 14 days?: No Do you have a fever (greater than 100.4 F or 38 C)?: No Have you tested positive for COVID-19?: No Exposed to someone with COVID-19 in past 14 days?: No Do you have a sore throat?: No Do you have a cough?: No Do you have any weakness?: No Do you have any diarrhea?: No Are you experiencing any unusual bleeding?: No Do you have any muscle aches/pain?: No Do you have any abdominal pain?: No Are you experiencing loss of taste or smell?: No Other 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 Have you received the Flu Vaccine for this season: No Have you received the Pneumonia Vaccine: No ROS Obtained: Yes All systems reviewed & no additional complaints except as documented and Yes Systems reviewed as appropriate & no additional complaints except as documented Physical Exam General General appearance: alert and in no apparent distress Head Head exam: atraumatic, normocephalic and normal inspection Eye Eye exam: Present normal appearance, PERRL and EOMI; Absent scleral icterus ENT ENT exam: Present normal exam and normal external ear exam Neck Neck exam: Present normal inspection and full ROM Chest Chest inspection: Present normal inspection and symmetric chest wall rise Respiratory Respiratory exam: Present normal lung sounds bilaterally; Absent respiratory distress or wheezes Cardiovascular Cardiovascular exam: Present tachycardia, irregular rhythm (a flutter 2:1) and normal heart sounds Abdominal Exam Abdominal exam: Present soft and distention; Absent tenderness, guarding or rebound Extremities Exam Extremities exam: Present normal inspection and full ROM Back Exam Back exam: Present normal inspection and full ROM Neurological Exam Neurological exam: Present alert and oriented X3 Psychiatric Psychiatric exam: Present normal affect and normal mood Skin Skin exam: Present warm and dry Medical Decision Making Medical Records Screening: Per USPSTF and CDC recommendations, given the prevalence of disease in our region, it is our hospital?s policy to screen for HIV and viral Hepatitis for all patients aged 18 and over and those with ongoing risk factors. Nii Inquiry Pt receiving controlled substance: No Vital Signs: 08/07/25 22:45 Temperature 98.2 F Temperature Source Oral Pulse Rate [Brachial] 144 H Respiratory Rate 20 Blood Pressure [Right Arm] 160/106 H Blood Pressure Mean [Right Arm] 124 Blood Pressure Source [Right Arm] Automatic Cuff Blood Pressure Position [Right Arm] Sitting 02 Sat by Pulse Oximetry 96 Oxygen Delivery Method Room Air Lab Data Lab results reviewed: Yes I reviewed the patient's lab results. Lab Results 04/13/25 17:26: Free T4 1.28 Orders (Tests/Meds): ED MEDICATIONS Generic Name Dose Route Start Last Admin Trade Name Freq PRN Reason Stop Dose Admin Diltiazem HCl 30 mg 04/13/25 23:45 Diltiazem 60mg Tablet PO 05/13/25 23:44 Q6H DEVAN Metoprolol Tartrate 5 mg 04/13/25 22:57 04/13/25 23:05 Metoprolol Tartrate 5mg/5ml Vial IV 05/13/25 22:56 5 mg Q5M PRN Administration Heart Rate- High ORDERS Category Date Time Status Free T4 (Free Thyroxine) Stat Lab 04/13/25 17:26 Completed Medical Decision Narrative: Patient is a 75-year-old female with a past medical history of proximal A-fib, hypertension on amlodipine and carvedilol who presents to the emergency department with concern for palpitations. On arrival, patient was tachycardic, rate in the 140s, found to be in atrial flutter. Patient's blood pressure was normal, vital signs otherwise unremarkable. Differential includes but not limited to: Electrolyte abnormalities, dehydration, thyroid disease, ACS/RI, pneumonia, pulmonary embolism, amongst others. Initial EKG was reviewed and interpreted by myself and showed atrial flutter rate of [address] or T wave changes concerning for ischemia. Second EKG showed A-fib rate of [address] or T wave changes concerning for ischemia Patient was seen here a few hours prior where full workup was completed including D-dimer which was mildly elevated at 0.84 but negative by years criteria. Patient CBC showed mild leukocytosis of 11 but otherwise unremarkable. Patient CMP was unremarkable except for mildly elevated creatinine at 1.3. Patient's magnesium was low at 1.1 which was replaced here in the emergency department. Initial troponin less than 0.01. TSH was low at 0.02 but free T4 was 1.28. UA showed no evidence of infection. Patient was given 2 doses of IV metoprolol earlier today and she had gone into a rate controlled A-fib. Patient was offered cardioversion earlier today and declined. Patient is not anticoagulated given that she has had a previous renal hemorrhage was told she was too high risk for anticoagulation. Here in the emergency department on patient's second visit, I did not feel that repeat labs were indicated. Patient was given a single dose of IV metoprolol and patient's rate was much better controlled with a rate of 81, still in A-fib. Given that this was patient's second visit in the emergency department tonight and given that patient is on her max dose of carvedilol I felt the patient warranted inpatient admission for cardiology consult further oral medication management. Patient was agreeable to this I discussed the case with hospital medicine who ultimately admitted the patient for further evaluation and workup. Critical Care Critical Care Time Critical Care Time: No
--- OUTSIDE RECORDS SUMMARY | 2025-04-13 22:51 | XMS_ITS | Encounter Summary ---
Author Organization Healthcare Address [address] [id number] Care Team Providers Care Routing Equipment Tender Name Role Phone Heladio Palm MD Primary Care Provider + [phone] Encounter Details Date Type Department Care Team ([facility] Contact Info) Description 02/16/2025 Telephone [facility] [address], [address] [place] [address] Daxa Martin MBBS [address] [place], [place] [id number] Social History Tobacco Use Types Packs/Day Years [...] [facility] Best contact number and optimal time of day to reach caller: [phone] Note: Please do not reply to this message. Follow-up communication and further actions as a result of this message need to be communicated with the patient directly, if the patient is not active onMyChart. If the patient is active on MyChart, they will receive notification of the communication/outcome via [facility] [facility]. * Telephone Encounter - Whitney Dubon - 02/17/2025 9:11 AM EDT L/m to reschedule * Telephone Encounter - Rosie Dewitt - 02/16/2025 9:25 AM EDT Clinical Concern/Question Reason for Call: pt [facility] she has today, sending to clinic for availability Best contact number: Other: [phone] Optimal time of day to reach caller: ANYTIME Additional comments/information from caller: None Note: Please do not reply to this message. Follow-up communication and further actions as a result of this message need to be communicated with the patient directly, if the patient is not active onMyChart. If the patient is active on MyChart, they will receive notification of the communication/outcome via [facility] documented in this encounter Plan of Treatment Upcoming Encounters Date Type Department Care Team (Late st Contact Info) Description 01/26/2026 11:00 AM EDT Office Visit [facility] [address] [place] [address] Luis Olivares MD [address] [place] [address] documented as of this encounter [...] documented as of this encounter Care Teams Routing Equipment Tender Relationship Specialty Start Date End Date Heladio Palm MD [address] [place] [address] PCP - General Internal Medicine 05/02/22 documented as of this encounter
--- OUTSIDE RECORDS SUMMARY | 2025-04-13 22:51 | XMS_ITS | Clinical Summary ---
Author Organization [facility] Address [address] [place] [address] Care Team Providers Care Food Court Team Member Name Role Phone Heladio Palm MD Primary Care Provider + [phone] Allergies Active Allergy Reactions Criticality Noted Date [...] 80 MG tabletIndicatio ns:Coronary artery disease involving pit river coronary artery of pit river heart without angina pectoris TAKE 1 TABLET [...] Type Department Care Team Description 03/13/2025 Telephone [email or web address] Nephrology, Bone & Mineral Metabolism [address], [address] [place] [address] Alejandra Camacho MD 03/12/2025 Travel 03/02/2025 Telephone [facility] [address] [place] [address] Luis Olivares MD 02/27/2025 Orders Only [facility] Nephrology, Bone & Mineral Metabolism [address], [address] [place] [address] Whitney Doan Hypercalcemia (Primary Dx) 02/27/2025 [facility] Nephrology, Bone & Mineral Metabolism [address], [address] [place] [phone] Alejandra Camacho MD [facility] Clinical Concern/Question 02/16/2025 [facility] Nephrology, Bone & Mineral Metabolism [address], [address] [place] [address] Daxa Martin MBBS 02/09/2025 [facility] Nephrology, Bone & Mineral Metabolism [address], [address] [place] [phone] Lashonda William, SHIPPING AND RECEIVING ASSISTANT 02/09/2025 [facility] Nephrology, Bone & Mineral Metabolism [address], [address] [place] [address] Lashonda William, SHIPPING AND RECEIVING ASSISTANT 02/02/2025 [facility] Nephrology, Bone & Mineral Metabolism [address], [address] [place] [address] Whitney Doan 02/02/2025 Travel 01/30/2025 Travel [...] Description 01/26/2026 11:00 AM EDT Office Visit [facility] [address] [place] [address] Luis Olivares MD [address] [facility] [place] [address] Health Maintenance Due Date Last [...] 05/22/2020 11/23/2019, 11/23/2019, 09/07/2019, Additional history exists [id number] Vaccine ( season) 2024 06/27/2021, 11/01/2020, 10/04/2020 [...] ORDERABLES Final Resu lt Performing Organization Address [facility] Co de Phone Number SUNVontoo * (ABNORMAL) Hemoglobin A1c (11/23/2019 2:45 PM [...] <6.0% Children and Adolescents <7.5% . Source: [place] [employer]. Standards of medical care in diabetes, 2017. Diabetes Care.2017:40 (suppl 1):S1-S135. . HbA1c assay performed by an ion-exchange chromatography method that is certified traceable to the DCCT. 11/23/2019 2:45 PM EDT 11/23/2019 2:59 PM EDT Deng Brumfield APRN LAB BLOOD ORDERABLES Fadia ramirez Result SUNQUEST from Last 3 Months or Most Recently Relevant to Health Maintenance [place] [address] [employer] Care Teams Food Court Team Member Relationship Specialty Start Date End Date Heladio Palm MD [address] [place] [address] PCP - General Internal Medicine 05/02/22
--- OUTSIDE RECORDS SUMMARY | 2025-04-13 22:51 | XMS_ITS | Encounter Summary ---
Author Organization Healthcare Address [address] [place] [address] Care Team Providers Care Spike Driver Name Role Phone Heladio Palm MD Primary Care Provider + [phone] Encounter Details Date Type Department Care Team ([facility] Contact Info) Description 02/27/2025 Orders Only [facility] Nephrology, Bone & Mineral Metabolism [address], [address] [place] [address] Whitney Doan Hypercalcemia (Primary Dx) [...] Description 01/26/2026 11:00 AM EDT Office Visit [facility] [address] [place] [address] Luis Olivares MD [address] [place] [address] Scheduled Orders Name Type Priority [...] documented as of this encounter Care Teams Spike Driver Relationship Specialty Start Date End Date Heladio Palm MD [address] [place] [address] PCP - General Internal Medicine 05/02/22 documented as of this encounter
--- OUTSIDE RECORDS SUMMARY | 2025-04-13 22:51 | XMS_ITS | Encounter Summary ---
Author Organization Healthcare Address [address] [place] [address] Care Team Providers Care Horticulture/Floriculture Teacher Name Role Phone Heladio Palm MD Primary Care Provider + [phone] Encounter Details Date Type Department Care Team [...] Description 01/26/2026 11:00 AM EDT Office Visit [facility] [address] [place] [address] Luis Olivares MD [address] [address] documented as of this encounter [...] documented as of this encounter Care Teams Horticulture/Floriculture Teacher Relationship Specialty Start Date End Date Heladio Palm MD [address] [place] [address] PCP - General Internal Medicine 05/02/22 documented as of this encounter
--- OUTSIDE RECORDS SUMMARY | 2025-04-13 22:51 | XMS_ITS | Encounter Summary ---
Author Organization Healthcare Address [address] [place] [address] Care Team Providers Care Lunchroom Mother Name Role Phone Heladio Palm MD Primary Care Provider + [phone] Encounter Details Date Type Department Care Team (Late Contact Info) Description 11/03/2024 Orders Only External Location [address] [place] [address] Provider, External Social History Tobacco Use Types [...] Description 01/26/2026 11:00 AM EDT Office Visit [facility] [address] [place] [address] Luis Olivares MD [address] [address] documented as of this encounter [...] documented as of this encounter Care Teams Lunchroom Mother Relationship Specialty Start Date End Date Heladio Palm MD [address] [place] [address] PCP - General Internal Medicine 05/02/22 documented as of this encounter
--- OUTSIDE RECORDS SUMMARY | 2025-04-13 22:51 | XMS_ITS | Encounter Summary ---
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
--- OUTSIDE RECORDS SUMMARY | 2025-04-13 22:51 | XMS_ITS | Encounter Summary ---
[facility] Address [address] [place] [address] Care Team Providers Care Invas Tech Name Role Phone Dano Romero MD Primary Care Provider [phone] Reason for Visit * Reason Onset Date Comments Med Refill 11/16/2018 Encounter Details Date Type Department Care Team (Late st Contact Info) Description 11/16/2018 Refill [facility] [address] [phone] Huber Grossman MD Social History Tobacco Use [...] documented as of this encounter Care Teams Invas Tech Relationship Specialty Start Date End Date Dano Romero MD [address] [place] [address] PCP - General Internal Medicine 09/29/19 documented as of this encounter
--- OUTSIDE RECORDS SUMMARY | 2025-04-13 22:51 | XMS_ITS | Encounter Summary ---
Author Organization Healthcare Address [address] [place] [address] Care Team Providers Care Field Property Loss Specialist Name Role Phone Heladio Palm MD Primary Care Provider [phone] Reason for Visit * Reason Onset Date Comments [facility] Clinical Concern/Question 02/27/2025 Encounter Details Date Type Department Care Team (Late st Contact Info) Description 02/27/2025 Telephone [facility] Metabolism [address], [address] [place] [address] Alejandra Camacho MD [address] [place] [address] [facility] Clinical Concern/Question Social History [...] the initial request. Best contact number: Other: [phone] Optimal time of day to reach caller: [...] will receive notification of the communication/outcome via [employer]. * Telephone Encounter - Whitney Doan - [...] be sent again. Best contact number: Other: [phone] Optimal time of day to reach caller: ANYTIME Additional comments/information from caller: Not Applicable Note: Please do not reply to this message. Follow-up communication and further actions as a result of this message need to be communicated with the patient directly, if the patient is not active onMyChart. If the patient is active on MyChart, they will receive notification of the communication/outcome via [facility]. * Telephone Encounter - Whitney Doan - 02/27/2025 12:19 PM EDT Received telephone readback orders from Dr. 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 Best contact number: Other: [phone] Optimal time of day to reach caller: ANYTIME Additional comments/information from caller: None Note: Please do not reply to this message. Follow-up communication and further actions as a result of this message need to be communicated with the patient directly, if the patient is not active onMyChart. If the patient is active on MyChart, they will receive notification of the communication/outcome via [facility]. documented in this encounter Plan of Treatment Upcoming Encounters Date Type Department Care Team (Late st Contact Info) Description 01/26/2026 11:00 AM EDT Office Visit [facility] [address] [place] [phone] Luis Olivares MD [address] [facility] [address] [place] [address] Scheduled Orders Name Type Priority Associated Diagnoses Orde r Schedule PTH Intact Total Lab Routine Hyperparathyroidism, unspecified ([facility]) Expected: 02/27/2025 (Approximate), Expires: 08/29/2026 documented as of this encounter Visit Diagnoses Diagnosis Renal osteodystrophy- Primary Hyperparathyroidism, unspecified ([facility]) Hyperparathyroidism, unspecified documented in this encounter Additional Health Concerns Assessment Noted Time PHQ-9 Depression Total Score: 12 023 12:53 PM EDT A fall risk assessment has been complete d for the patient 12/30/2024 10:32 AM EDT A Body Mass Index follow-up plan has been documented for the patient 12/30/2024 11:11 AM EDT documented as of this encounter Care Teams Field Property Loss Specialist Relationship Specialty Start Date End Date Heladio Palm MD [address] [place] [address] PCP - General Internal Medicine 05/02/22 documented as of this encounter
--- OUTSIDE RECORDS SUMMARY | 2025-04-13 22:51 | XMS_ITS | Encounter Summary ---
[facility] Address [address] [place] [address] Care Team Providers Care Repairer Helper Name Role Phone Dano Romero MD Primary Care Provider [phone] Encounter Details Date Type Department Care Team (Late st Contact Info) Description 02/02/2018 Telephone [facility] [address] [place] [phone] Huber Grossman MD Social History Tobacco [...] documented as of this encounter Care Teams Repairer Helper Relationship Specialty Start Date End Date Dano Romero MD [address] [place], [place] [id number] PCP - General Internal Medicine 09/29/19 documented as of this encounter
--- OUTSIDE RECORDS SUMMARY | 2025-04-13 22:51 | XMS_ITS | Encounter Summary ---
Author Organization Healthcare Address [address] [place] [address] Care Team Providers Care Slate Roofer Name Role Phone Heladio Palm MD Primary Care Provider + [phone] Encounter Details Date Type Department Care Team ([facility] Contact Info) Description 03/13/2025 Telephone [facility] [address] [facility], [address] [place] [address] Alejandra Camacho MD [address] [place] [address] Social History Tobacco Use Types [...] optimal time of day to reach caller: [phone] Note: Please do not reply to this message. Follow-up communication and further actions as a result of this message need to be communicated with the patient directly, if the patient is not active onMyChart. If the patient is active on MyChart, they will receive notification of the communication/outcome via [employer]. documented in this encounter Plan of Treatment Upcoming Encounters Date Type Department Care Team (Late st Contact Info) Description 01/26/2026 11:00 AM EDT Office Visit [facility] [address] [facility] [place] [address] Luis Olivares MD [address] [address] documented as of this encounter [...] as of this encounter Care Teams Slate Roofer Relationship Specialty Start Date End Date Heladio Palm MD [address] [place] [address] PCP - General Internal Medicine 05/02/22 documented as of this encounter
--- OUTSIDE RECORDS SUMMARY | 2025-04-13 22:51 | XMS_ITS | Encounter Summary ---
[facility] [address] [place] [address] Care Team Providers Care Vehicle Dismantler Name Role Phone Dano Romero MD Primary Care Provider [phone] Encounter Details Date Type Department Care Team (Late st Contact Info) Description 08/01/2019 Telephone [facility] [address] [place] [phone] Huber Grossman MD Social History Tobacco [...] documented as of this encounter Care Teams Vehicle Dismantler Relationship Specialty Start Date End Date Dano Romero MD [address] [place] [id number] PCP - General Internal Medicine 09/29/19 documented as of this encounter
--- OUTSIDE RECORDS SUMMARY | 2025-04-13 22:51 | XMS_ITS | Clinical Summary ---
Author Organization [facility] Address [address] [place] [address] Care Team Providers Care Net Making Supervisor Name Role Phone Dano Romero MD Primary Care Provider [phone] Allergies Active Allergy Reactions Criticality Noted Date [...] (LIPITOR) 40 MG tablet 0 Active Biotin 39451 MCG tablet 1 Active carvedilol (COREG) 25 [...] - 5.60 % 09/07/2019 4:51 PM EST [facility] Blood Venipuncture / Unknown 09/07/2019 4:10 PM EST 09/07/2019 4:19 PM EST Narrative [facility] - 09/07/2019 4:51 PM EST Hemoglobin A1C Ranges: Increased Risk for Diabetes 5.7% to 6.4% Diabetes >= 6.5% Diabetic Goal < 7.0% Sammie Morales DNP, QUALITY IMPROVEMENT CONSULTANT LAB BLOOD ORDERABLES Fi nal Result [facility]
[address] [place] [address], * SCANNED - INFLUENZA (06/24/2019) Huber Grossman MD CHART REVIEW TABS Final Re sult * (ABNORMAL) Lipid Panel (03/25/2019 10:33 AM EDT) Total Cholesterol 152 0 - 200 mg/dL 03/25/2019 6:52 PM EDT [facility] Triglycerides 165(H) 0 - 150 mg/dL 03/25/2019 6:52 PM EDT [facility] HDL Cholesterol 37(L) 40 - 60 mg/dL 03/25/2019 6:52 PM EDT [facility] LDL Cholesterol 82 0 - 100 mg/dL 03/25/2019 6:52 PM EDT [facility] VLDL Cholesterol 33 5 - 40 mg/dL 03/25/2019 6:52 PM EDT [facility] LDL/HDL Ratio 2.22 03/25/2019 6:52 PM EDT [facility] Blood Left upper arm structure / Unknown Venipuncture / Unknown 03/25/2019 10:33 AM EDT 03/25/2019 10:33 AM EDT Narrative [facility] - 03/25/2019 6:52 PM EDT Cholesterol [...] MD LAB BLOOD ORDERABLES Final Re sult [facility]
[address] [place] [address], * SCANNED - EYE EXAM (01/05/2019) Anatomical Region Laterality Modality Other Huber Grossman MD CHART REVIEW TABS Final Re sult * Hepatitis C Antibody (12/21/2018 10:57 AM EDT) Hepatitis C Ab Non-Reacti ve Non-Reacti ve 12/21/2018 7:17 PM EDT [facility] Blood Right upper arm structure / Unknown Venipuncture / Unknown 12/21/2018 10:57 AM EDT 12/21/2018 10:58 AM EDT us Huber Grossman MD LAB BLOOD ORDERABLES Final Re sult [facility]
[address] [place] [address], [place] [phone] from Last 3 Months or Most Recently Relevant to Health Maintenance Additional Health Concerns Infection Onset Date Last Indicated 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 09/08/2019 09/08/2019 Insurance MEDICARE [facility] Advance Directives * CPR (Attempt to Resuscitate) [...] pulse or is breathing): Full Care Teams Net Making Supervisor Relationship Specialty Start Date End Date Dano Romero MD [address] [place] [address] PCP - General Internal Medicine 09/29/19
--- OUTSIDE RECORDS SUMMARY | 2025-04-13 22:51 | XMS_ITS | Encounter Summary ---
Author Organization Healthcare Address [address] [place] [address] Care Team Providers Care Orthotist Name Role Phone Heladio Palm MD Primary Care Provider + [phone] Encounter Details Date Type Department Care Team (Late st Contact Info) Description 03/02/2025 Telephone [facility] [address] [place] [address] Luis Olivares MD [address] [address] Social History Tobacco Use Types [...] date Send To: Mail Best contact number: [phone] (home) Optimal time of day to reach caller: ANYTIME Additional comments/information from caller: None Note: Please do not reply to this message. Follow-up communication and further actions as a result of this message need to be communicated with the patient directly, if the patient is not active onMyChart. If the patient is active on MyChart, they will receive notification of the communication/outcome via [employer]. documented in this encounter Plan of Treatment Upcoming Encounters Date Type Department Care Team (Late st Contact Info) Description 01/26/2026 11:00 AM EDT Office Visit [facility] [address] [place] [address] Luis Olivares MD 110 [facility] [address] [place] [address] documented as of this encounter [...] documented as of this encounter Care Teams Orthotist Relationship Specialty Start Date End Date Heladio Palm MD [address] [place] [address] PCP - General Internal Medicine 05/02/22 documented as of this encounter
--- OUTSIDE RECORDS SUMMARY | 2025-04-13 22:51 | XMS_ITS | Encounter Summary ---
[facility] Address [address] [place] [address] Care Team Providers Care Pipeline Dispatcher Name Role Phone Dano Romero MD Primary Care Provider [phone] Encounter Details Date Type Department Care Team (Late st Contact Info) Description 11/20/2017 External CPT II SPECIMEN COLLECTOR - [facility] Social History Tobacco Use [...] documented as of this encounter Care Teams Pipeline Dispatcher Relationship Specialty Start Date End Date Dano Romero MD [address] [place] [address] PCP - General Internal Medicine 09/29/19 documented as of this encounter
--- OUTSIDE RECORDS SUMMARY | 2025-04-13 22:51 | XMS_ITS | Encounter Summary ---
Author Organization Healthcare Address [address] [place] [address] Care Team Providers Care Press Puller Name Role Phone Heladio Palm MD Primary Care Provider + [phone] Reason for Visit * Reason Comments Med Refill Encounter Details Date Type Department Care Team (Late st Contact Info) Description 05/05/2024 Refill [facility] [place] [address] [place] [address] Willow Fry PA [address] [place] [address] Coronary artery disease involving capitan grande band coronary artery of capitan [place] band heart without angina pectoris Social History Tobacco [...] Description 01/26/2026 11:00 AM EDT Office Visit [facility] [address] [place] [address] Luis Olivares MD [address] [facility] [address] [place] [address] documented as of this encounter Visit Diagnoses Diagnosis Coronary artery disease involving cap[place] grande band coronary artery of cap[place] band heart without angina pectoris documented in this encounter Additional Health Concerns Assessment Noted Time PHQ-9 Depression Total Score: 12 023 12:53 PM EDT A fall risk assessment has been complete d for the patient 02/08/2024 3:04 PM EDT A Body Mass Index follow-up plan has been documented for the patient 03/30/2024 2:46 PM EDT documented as of this encounter Care Teams Press Puller Relationship Specialty Start Date End Date Heladio Palm MD [address] [place] [address] PCP - General Internal Medicine 05/02/22 documented as of this encounter
--- NOTE | 2025-04-13 23:01 | PC.NURSE ---
lab called to add on free t4 blood order.
[2025-04-13] MEDS: METOPROLOL TARTRATE 5MG/5ML VIAL 5 MG IV (23:05)
--- NOTE | 2025-04-13 23:16 | ECG_ITS ---
APPROVED REPORT Exam: Resting ECG HR:81 bpm ECG Measurements Heart Rate 81 AXES QRSd 81 QRS 60 QT 341 T 90 QTc 378 Conclusion A-fib with a rate of [address] or T wave changes concerning for ischemia Electronically signed by : Alyssa Sahu, 04/15/2025 02:16:19
[2025-04-13 23:27] LABS: Free T4 (Free Thyroxine) 1.28 ng/dl (0.78-2.19)
--- NOTE | 2025-04-13 23:50 | PC.NURSE ---
Report called to MARINO Beebe
[2025-04-14] VITALS (10 sets, daily range): BP systolic 100–134; BP diastolic 46–79; PULSE 59–91; RESP 14–18; TEMP 36.5–36.7; O2SAT 90–100; BMI 42.3; BMI 42.1
--- NOTE | 2025-04-14 00:03 | PC.NURSE ---
patient arrived to the floor via wheelchair at 0003
--- NOTE | 2025-04-14 00:17 | EXP.HP ---
History of Present Illness *Admission Date: 04/13/25 *Reason for visit:: Heart palpitations *History of present illness: Mirtha Lester is a 75-year-old female with medical history significant for paroxysmal A-fib (not on anticoagulation due to history of renal hemorrhage) since 20s, hypertension, type 2 diabetes, hypothyroidism, GERD, anxiety/depression who presents with her palpitations. She states she was in normal health this morning when cooking breakfast when all of a sudden she began to feel uneasy with heart palpitations, dizziness. She measured her heart rate which was in the 150s. Denies chest pain, shortness of breath. These episodes were on and off throughout the day at which point patient proceeded to the ED. Initial heart rate in the 140s which was medically managed with IV Lopressor 5 mg, with repeat EKG showed rate controlled A-fib. She was offered cardioversion in the ED but patient declined. She was discharged in stable condition advised to follow-up with cardiology. However, shortly after returning home patient continued to have episodes of heart racing with again heart rate in the 150s. Patient returned via EMS, and was found again to be in A-fib RVR. Rate controlled with IV Lopressor 5 mg. Patient denies any recent medication changes at has been adherent, does not drink caffeine, but does endorse significant life stressors recently. She was recently admitted for periodontitis, treated with IV antibiotics and discharged in stable condition with follow-up with dentist with resolution of symptoms. Workup in the ED significant for TSH 0.02, free T4 normal, unremarkable CXR. Case discussed with ED provider decision was made to admit patient for recurrent A-fib RVR. [facility] Disclaimer: The information contained in this section may have been updated after the patient was seen, as this information can be updated by other users. 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 (Updated 04/14/25 @ 05:02 by Luis Case MD) Osteoarthritis Barretts esophagus History of gastroesophageal reflux (GERD) Diabetes mellitus, type 2 Hypothyroid History of left heart catheterization (LHC) Cholecystectomy planned Cystocele Hysterectomy planned Basal cell carcinoma Right shoulder pain Atypical angina Hypomagnesemia Palpitations Sinus tachycardia CAD (coronary atherosclerotic disease) Abnormal result of cardiovascular function study Hyperlipidemia Hypertension Chest pressure Diastolic dysfunction Palpitations Edema Prediabetes Dyspnea Abnormal electrocardiogram [ECG] [EKG] Nasal fracture Pleural effusion Severe sepsis with acute organ dysfunction E. 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 H/O heart artery stent Status post renal artery angioplasty Family History Other No significant family history Social History (Updated 04/14/25 @ 00:55 by Nia Zuniga RN) Smoking Status: Former smoker how long ago did patient quit smokin years ago alcohol intake: never substance use type: denies use current occupational status: retired Travel in the last 8 weeks?: None household members: other housing: other Have you lived/traveled outside [place] in past 30 days?: No Contact w/someone who lives/traveled outside US past 30 days?: No Exposure to someone with infectious disease in past 14 days?: No Do you have a fever (greater than 100.4 F or 38 C)?: No Have you tested positive for COVID-19?: No Exposed to someone with COVID-19 in past 14 days?: No Do you have a sore throat?: No Do you have a cough?: No Do you have any weakness?: No Are you experiencing any nausea/vomitting?: No Do you have any diarrhea?: No Are you experiencing any unusual bleeding?: No Do you have any muscle aches/pain?: No Do you have any abdominal pain?: No Are you experiencing loss of taste or smell?: No Other 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 Have you received the Flu Vaccine for this season: No Have you received the Pneumonia Vaccine: No Meds Home Medications and Allergies Home Medications ?Medication ?Instructions ?Recorded ?Confirmed ?Type ascorbate calcium (vitamin C) 500 500 mg PO DAILY 05/22/22 04/14/25 History mg tablet atorvastatin 40 mg tablet 40 mg PO HS 05/22/22 04/14/25 History cholecalciferol (vitamin D3) 50 50 mcg PO DAILY 05/22/22 04/14/25 History mcg (2,000 unit) capsule levothyroxine 100 mcg tablet 100 mcg PO DAILY 05/22/22 04/14/25 History losartan 50 mg tablet 50 mg PO DAILY 05/22/22 04/14/25 History clopidogrel 75 mg tablet (Plavix) 75 mg PO DAILY #30 tabs 07/01/22 04/14/25 Rx pantoprazole 40 mg tablet,delayed 40 mg PO DAILY #30 tabs 07/01/22 04/14/25 Rx release (Protonix) carvedilol 25 mg tablet 25 mg PO BID 03/03/24 04/14/25 History magnesium aspart,citrate,oxide 800 mg PO DAILY 03/03/24 04/14/25 History amlodipine 2.5 mg tablet (Norvasc) 2.5 mg PO DAILY #90 tabs 12/23/24 04/14/25 Rx dapagliflozin propanediol 10 mg 10 mg PO DAILY 03/20/25 04/14/25 History tablet (Farxiga) metformin 750 mg tablet,extended 750 mg PO HS 03/20/25 04/14/25 History release 24 hr triamterene 37.5 1 cap PO DAILY 03/20/25 04/14/25 History mg-hydrochlorothiazide 25 mg capsule venlafaxine 100 mg tablet 100 mg PO DAILY 03/20/25 04/14/25 History fluconazole 150 mg tablet 150 mg PO DAILY 04/14/25 04/14/25 History New Prescriptions to Start Prescriptions: Allergies Allergy/AdvReac Type Severity Reaction Status Date / Time ciprofloxacin (From Cipro) Allergy Verified 10/11/24 14:36 codeine Allergy Verified 10/11/24 14:36 Gadolinium-Containing Allergy Verified 10/11/24 14:36 Contrast Medi Iodinated Contrast Media Allergy Verified 10/11/24 14:36 Penicillins Allergy Verified 10/11/24 14:36 Sulfa (Sulfonamide Allergy Verified 10/11/24 14:36 Antibiotics) sulfamethoxazole (From Allergy Verified 10/11/24 14:36 Bactrim) trimethoprim (From Bactrim) Allergy Verified 10/11/24 14:36 Exam Data for Last 24 hours Vital signs and Labs for Last 24 Hours: Temp Pulse Resp BP Pulse Ox O2 Del Method 97.9 F 91 H 14 132/79 96 Room Air 04/14/25 00:03 04/14/25 00:03 04/14/25 00:03 04/14/25 00:03 04/13/25 22:45 04/14/25 00:03 Laboratory Results - last 24 hr 04/13/25 17:26: Free T4 1.28 I & O for Last 24 hours: Intake & Output 04/11/25 04/12/25 04/13/25 04/14/25 23:59 23:59 23:59 23:59 Weight 106.141 kg Constitutional Constitutional: no acute distress and obese *Routine HEENT Exam Head: Present normocephalic Eye: Present EOMI and PERRL ENT: Present mucous membranes moist *Routine Neck Exam Neck: Present supple; Absent lymphadenopathy *Routine Respiratory Exam Respiratory: Present CTA bilaterally *Routine Cardiovascular Exam Cardiovascular: Present RRR and irregular rhythm *Routine Abdominal Exam Abdominal: Present soft and normoactive bowel sounds; Absent tenderness *Routine Rectal Exam Rectal:: deferred *Routine Genitalia Exam Genitalia:: deferred *Routine Extremities Exam Extremities: Absent cyanosis, clubbing or edema *Routine Skin Exam Skin: Present warm; Absent rash *Routine Neurological Exam Neurological: Present alert and oriented X3 Routine Psychiatric Exam Psychiatric: Present anxious Assessment and Plan *Assessment and plan (1) AF (paroxysmal atrial fibrillation): Status: Acute Category: Medical Code(s): I48.0 - Paroxysmal atrial fibrillation (2) Hypothyroidism: Status: Acute Category: Medical Code(s): E03.9 - Hypothyroidism, unspecified (3) Diabetes mellitus, type 2: Status: Acute Category: Medical Code(s): E11.9 - Type 2 diabetes mellitus without complications (4) Hypertension: Status: Acute Qualifiers: Hypertension type: primary hypertension Qualified Code(s): I10 - Essential (primary) hypertension Category: Medical Code(s): I10 - Essential (primary) hypertension (5) Obesity: Status: Acute Qualifiers: Body mass index: BMI 45.0-49.9 Obesity classification: adult class 3 (BMI >= 40) Obesity type: due to excess calories Serious obesity comorbidity presence: with serious comorbidity Qualified Code(s): E66.01 - Morbid (severe) obesity due to excess calories; Z68.42 - Body mass index (BMI) 45.0-49.9, adult Category: Medical Code(s): E66.9 - Obesity, unspecified Plan Mirtha Lester is a 75-year-old female with medical history significant for paroxysmal A-fib (not on anticoagulation due to history of renal hemorrhage) since 20s, hypertension, type 2 diabetes, hypothyroidism, GERD, anxiety/depression who presents with heart palpitations. She states she was in normal health this morning when cooking breakfast when all of a sudden she began to feel uneasy with heart palpitations, dizziness. She measured her heart rate which was in the 150s. Denies chest pain, shortness of breath. These episodes were on and off throughout the day at which point patient proceeded to the ED. Initial heart rate in the 140s which was medically managed with IV Lopressor 5 mg, with repeat EKG showed rate controlled A-fib. She was offered cardioversion in the ED but patient declined. She was discharged in stable condition advised to follow-up with cardiology. However, shortly after returning home patient continued to have episodes of heart racing with again heart rate in the 150s. Patient returned via EMS, and was found again to be in A-fib RVR. Rate controlled with IV Lopressor 5 mg. Patient denies any recent medication changes at has been adherent, does not drink caffeine, but does endorse significant life stressors recently. She was recently admitted for periodontitis, treated with IV antibiotics and discharged in stable condition with follow-up with dentist with resolution of symptoms. Workup in the ED significant for TSH 0.02, free T4 normal, unremarkable CXR, CBC, CMP. Case discussed with ED provider decision was made to admit patient for recurrent A-fib RVR. #Paroxysmal A-fib RVR #History of renal hemorrhage ? Presented with recurrent heart palpitations, diaphoresis, dizziness. Found to be in A-fib RVR with HR in 140s, rate controlled with IV Lopressor. ? Patient denies any recent medication changes, has been adherent, denies caffeine intake but does drink diet sodas. Endorses significant life stressors, underlying history of uncontrolled anxiety. ? TSH is very low 0.02, free T4 normal. Patient states she has not been taking more than her prescribed levothyroxine 100 mcg. ? TSH can be skewed in acute illness especially with normal free T4, however with persistent paroxysmal A-fib RVR will decrease dose for now. ? Started diltiazem 60 mg Q8h. Went into RVR with 30 mg. ? Continue home carvedilol 25 mg twice daily, clopidogrel 75 mg. ? Will hold off on anticoagulation with a history of renal hemorrhage. [id number] score 5. ? Follow-up ECHO, morning TSH. ? Cardiology consulted, pending further recommendations. #Hypothyroidism, supratherapeutic ? TSH seems to be supratherapeutic, 0.02. Free T4 normal. As above, can be skewed in acute illness. Given RVR, will decrease dose of levothyroxine. ? Decreased home levothyroxine from 100 mcg to 50 mcg. Will need repeat TFTs outpatient within 6 weeks. ? Follow-up morning TSH. #Hypertension ? Home medications will likely need to be modified after starting diltiazem with carvedilol. ? Resume home medications once reconciled. BP normal 110/59. #Type 2 diabetes #Obesity ? Hemoglobin A1c 9.0%, uncontrolled. ? Lantus 10 units daily, LDSSI, ACHS glucose checks. ? Continue home metformin 750 mg, Farxiga 10 mg. ? Continue increasing metformin dose on discharge, starting GLP-1 agonist. ? Obesity complicates all aspects of care. #CKD stage IIIb ? Creatinine 1.3, GFR 40. Stable. Renally dose and avoid nephrotoxic medications. #Anxiety/depression ? Patient seems to have uncontrolled anxiety, takes venlafaxine at home which can worsen anxiety. ? Recommend follow-up with behavioral health to consider alternative. #GERD ? Continue home PPI. Full code DVT prophylaxis: SCDs
--- NOTE | 2025-04-14 01:10 | PC.NURSE ---
Called MD Irina Case about patients heart rate. Patient heart rate is staying in the 140's and this is after patient has already received 30mg of diltiazem po. He wants to give her another 30mg po of diltiazem and then push iv 15mg of diltiazem. Just before getting off the phone patients heart rate came back down to low 100s. At this time going to hold off on the diltiazem 15mg iv push. If patients heart rate gets above 120 then iv diltiazem will be given.
[2025-04-14 01:12] LABS: POC Glucose,Bedside 161 (70-110)
--- NOTE | 2025-04-14 03:27 | CA_ITS ---
APPROVED REPORT EXAM: Comprehensive 2D, Doppler, and color-flow Echocardiogram Custom Protection Officer: ILIA Chilel, RVS Ht: 5 ft 1 in Wt: 233lbs BSA: 2.02 BP: 132/79 mmHg Indications: Afib, DM, HTN, HLD, PANCHAL, Palpitations Echo Enhancing Agent Comments: TDS: Poor acoustics throughout exam 2D Dimensions IVSd 1.28 cm LVEF (Visual) 66.60 % PWd 1.23 cm LA Volume 51.90 mL LVDd 4.91 cm LA Volume Index 25.125663 mL/m2 (M/F) 16-34 LVDs 3.10 cm EF AP4 47.70 % Left Atrium 3.49 cm GL Strain -18.6 % M-Mode Dimensions RVDd 2.71 cm (0.9-2.6) LA Diam 3.72 cm (1.9-4.0) LVDd 4.45 cm (3.5-5.7) LVDs 2.80 cm (3.5-5.7) IVSd 1.31 cm (0.6-1.1) PWd 1.14 cm (0.6-1.1) EF (Teich) 67.10% EPSs 0.58 cm FS 37.10% EDV (Teich) 90.10 mL ESV (Teich) 29.60 mL LV Diastology E Decel Time 113 (160-240 msec) E/A Ratio 1.53 MED A' 8.40 cm/s LAT A' 6.80 cm/s Aortic Valve PERFECTO Index 0.97 cm2/m2 AoV Peak Mick. 124.0 (50-130 cm/s) AO Peak GR. 6.20 mmHg AO Mean GR. 3.10 (<5 mmHg) AO VTI 21.1 (18-25 cm) PERFECTO (VTI) 2.00 (2.5-4.5 cm2) Mitral Valve MV A Velocity 47.0 (40-130 cm/s) E/A Ratio 1.53 Pulmonary Valve PV Peak Velocity 88.0 (50-150 cm/s) Tricuspid Valve TR P. Velocity 195.00 cm/s RAP Estimate 10.00 mmHg RVSP 25.20 mmHg Left Ventricle The left ventricle is normal size. Left ventricular systolic function is normal. The left ventricular ejection fraction is within the normal range. There is increased left ventricular wall thickness. There is normal LV segmental wall motion. The left ventricular diastolic function is indeterminate. LVEF is 55% Right Ventricle The right ventricle is mildly dilated. The right ventricular systolic function is normal. Atria The left atrium is mildly dilated. The right atrium is mildly dilated. There is no color Doppler evidence of interatrial shunt. Aortic Valve The aortic valve is mildly thickened. There is no hemodynamically significant aortic valvular stenosis. No aortic regurgitation is present. Mitral Valve The mitral valve is normal in structure. No evidence of mitral valve stenosis. Trace mitral regurgitation is present. Tricuspid Valve The tricuspid valve leaflets are thin and pliable. Mild tricuspid regurgitation. RVSP is 20-25 mmHg. Pulmonic Valve The pulmonary valve is grossly normal in structure. Trace pulmonic valve regurgitation is present. Great Vessels The aortic root is normal in size. IVC is normal in size and collapses >50% with inspiration. Pericardium There is no pericardial effusion. Other Information Study Quality: Fair Conclusion Normal biventricular systolic function. Mild RV dilation. Mild biatrial dilation. Mild TR. Electronically signed by : Adeola Marie MD 04/14/2025 09:16:14
[2025-04-14 06:01] LABS: POC Glucose,Bedside 178 (70-110)
[2025-04-14 06:17] LABS: Hematocrit 40.4 % (37.0-47.0); Hemoglobin 13.7 g/dL (12.2-16.2); Immature Granulocytes % 0.3 %; Mean Corpuscular HGB Conc 33.9 g/dL (31.8-35.4); Mean Corpuscular Hemoglobin 31.5 pg (27.0-31.2); Mean Corpuscular Volume 92.9 fl (81-99); Nucleated Red Blood Cells % 0 %; Platelet Count 239 K/mm3 (142-424); Red Blood Count 4.35 M/mm3 (4.20-5.40); Red Cell Distribution Width-SD 45.6 fL; White Blood Count 9.9 K/mm3 (4.8-10.8)
[2025-04-14] MEDS: humaLOG 100 UNITS/ML 10ML VIAL (SSI) SUBCUT ×2 (06:26→16:32)
[2025-04-14] MEDS: LEVOTHYROXINE 50MCG (0.05MG) TAB 50 MCG PO (06:26)
[2025-04-14 06:30] LABS: Albumin Level 4.0 g/dl (3.5-5.0); Chloride 100 mmol/L (98-107); Potassium 4.1 mmoL/L (3.5-5.1); Sodium 139 mmol/L (136-145)
[2025-04-14 06:33] LABS: Alanine Aminotransferase 16 U/L (12-78); Albumin/Globulin Ratio 1.3 (1.1-1.8); Alkaline Phosphatase 97 U/L (38-126); Anion Gap 14.1 mEq/L (5-15); Aspartate Amino Transferase 20 U/L (14-36); Bilirubin,Total 0.4 mg/dl (0.2-1.3); Blood Urea Nitrogen 35 mg/dl (7-17); Calcium 10.1 mg/dl (8.4-10.2); Carbon Dioxide 29 mmol/L (22.0-30.0); Creatinine Clearance Estimated 26 mL/min (50-200); Creatinine,Serum 1.40 mg/dl (0.52-1.04); Estimated Glomerular Filt Rate 37 ml/min (>60); GFR (African American) 44 ML/MIN (>60); Globulin 3.0 g/dL (1.3-3.2); Glucose 195 mg/dl (74-100); Magnesium 1.8 mg/dl (1.6-2.3); Total Protein,Serum 7.0 g/dl (6.3-8.2)
[2025-04-14 07:02] LABS: Thyroid Stimulating Hormone 0.32 uIU/mL (0.465-4.68)
[2025-04-14] MEDS: CARVEDILOL 25MG TABLET 25 MG PO (09:29)
[2025-04-14] MEDS: DAPAGLIFLOZIN PROPANEDIOL 10 MG TABLET PO (09:29)
--- NOTE | 2025-04-14 09:30 | EXP.CARD.CON ---
History of Present Illness History of Present Illness Consult date: 04/14/25 Consult reason: atrial fibrillation Chief complaint: palps and diaphoresis History of present illness: 75-year-old white female well-established patient of our office admitted with A-fib RVR which is why we are consulted. She history of CAD status post stenting in 2021, COPD paroxysmal atrial fibrillation, diabetes, obesity. 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 She had subsequent infection and complicated hospital course with 7-week hospitalization. As a result long-term OAC has not been recommended. She saw Dr. Allen at previously about Watchman device but has had some hesitations so is currently untreated in that regard. Her A-fib overall is largely well-controlled with carvedilol 25 mg twice daily for rate control. Recently having several episodes of hypomagnesemia requiring significant repletion inpatient. Review of records indicates she takes triamterene hydrochlorothiazide which she states was started by her PCP many years ago. Patient presented to the emergency room here yesterday with palpitations and heart rate 150s along with diaphoresis. She was found to be in A-fib RVR, had magnesium IV as well as Lopressor. Her symptoms improved and she was discharged home but returned several hours later for the same. Admitted overnight for further magnesium, hydration, rate control. She was started on Cardizem 60 mg 3 times daily. This morning she is rate controlled and asymptomatic. [facility] Disclaimer: The information contained in this section may have been updated after the patient was seen, as this information can be updated by other users. 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 (Updated 04/14/25 @ 09:39 by HEIDI Crocker) Hypomagnesemia Osteoarthritis Barretts esophagus History of gastroesophageal reflux (GERD) Diabetes mellitus, type 2 Hypothyroid History of left heart catheterization (LHC) Cholecystectomy planned Cystocele Hysterectomy planned Basal cell carcinoma Right shoulder pain Atypical angina Palpitations Sinus tachycardia CAD (coronary atherosclerotic disease) Abnormal result of cardiovascular function study Hyperlipidemia Hypertension Chest pressure Diastolic dysfunction Palpitations Edema Prediabetes Dyspnea Abnormal electrocardiogram [ECG] [EKG] Nasal fracture Pleural effusion Severe sepsis with acute organ dysfunction E. 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 H/O heart artery stent Status post renal artery angioplasty Family History Other No significant family history Social History Smoking Status: Former smoker how long ago did patient quit smokin years ago alcohol intake: never substance use type: denies use current occupational status: retired Travel in the last 8 weeks?: None household members: other housing: other Review of Systems Constitutional Constitutional: Denies fatigue and Denies weakness Eyes Eyes: Denies loss of vision ENT Ears, Nose, Mouth, and Throat: Denies hearing loss and Denies vertigo *Cardiovascular Cardiovascular: Denies chest pain, Denies dyspnea, Reports irregular heart rhythm, Reports rapid heart rate and Denies syncope *Respiratory Respiratory: Denies cough and Denies dyspnea *Gastrointestinal Gastrointestinal: Denies change in stool character, Denies nausea and Denies vomiting *Musculoskeletal Musculoskeletal: Denies muscle weakness Integumentary/Breasts Skin/Breast: Denies changing lesions *Neurologic Neurologic: Denies loss of vision, Denies syncope, Denies vertigo and Denies weakness Endocrine Endocrine: Denies fatigue Exam Data for Last 24 hours Vital signs and Labs for Last 24 Hours: Temp Pulse Resp BP Pulse Ox O2 Del Method 97.8 F 61 16 103/47 L 94 L Room Air 04/14/25 08:00 04/14/25 08:00 04/14/25 08:00 04/14/25 08:00 04/14/25 08:00 04/14/25 08:00 Laboratory Results - last 24 hr 04/13/25 17:26: Free T4 1.28 04/14/25 01:01: POC Glucose 161 H 04/14/25 05:41: WBC 9.9, RBC 4.35, Hgb 13.7, Hct 40.4, MCV 92.9, MCH 31.5 H, MCHC 33.9, RDW 13.4, Plt Count 239, MPV 9.6, Neut % (Auto) 61.6, Lymph % (Auto) 27.2, [place] % (Auto) 7.7, Eos % (Auto) 2.7, Baso % (Auto) 0.5, Neut # (Auto) 6.1, Lymph # (Auto) 2.7, [place] # (Auto) 0.8, Eos # (Auto) 0.3, Baso # (Auto) 0.1, Sodium 139, Potassium 4.1, Chloride 100, Carbon Dioxide 29, Anion Gap 14.1, BUN 35 H, Creatinine 1.40 H, Estimated Creat Clear 26, Estimated GFR 37 L, Est GFR ( Amer) 44 L, Glucose 195 H D, Calcium 10.1, Magnesium 1.8 D, Total Bilirubin 0.4, AST 20, ALT 16 D, Alkaline Phosphatase 97, Total Protein 7.0, Albumin 4.0 D, Globulin 3.0, Albumin/Globulin Ratio 1.3, TSH 0.32 L D 04/14/25 05:54: POC Glucose 178 H I & O for Last 24 hours: Intake & Output 04/11/25 04/12/25 04/13/25 04/14/25 23:59 23:59 23:59 23:59 Intake Total 120 / 120 Output Total 650 / 650 Balance -530 / -530 Weight 234 lb 223 lb 4.8 oz Meds Home Medications and Allergies Home Medications ?Medication ?Instructions ?Recorded ?Confirmed ?Type ascorbate calcium (vitamin C) 500 500 mg PO DAILY 05/22/22 04/14/25 History mg tablet atorvastatin 40 mg tablet 40 mg PO HS 05/22/22 04/14/25 History cholecalciferol (vitamin D3) 50 50 mcg PO DAILY 05/22/22 04/14/25 History mcg (2,000 unit) capsule levothyroxine 100 mcg tablet 100 mcg PO DAILY 05/22/22 04/14/25 History losartan 50 mg tablet 50 mg PO DAILY 05/22/22 04/14/25 History clopidogrel 75 mg tablet (Plavix) 75 mg PO DAILY #30 tabs 07/01/22 04/14/25 Rx pantoprazole 40 mg tablet,delayed 40 mg PO DAILY #30 tabs 07/01/22 04/14/25 Rx release (Protonix) carvedilol 25 mg tablet 25 mg PO BID 03/03/24 04/14/25 History magnesium aspart,citrate,oxide 800 mg PO DAILY 03/03/24 04/14/25 History amlodipine 2.5 mg tablet (Norvasc) 2.5 mg PO DAILY #90 tabs 12/23/24 04/14/25 Rx dapagliflozin propanediol 10 mg 10 mg PO DAILY 03/20/25 04/14/25 History tablet (Farxiga) metformin 750 mg tablet,extended 750 mg PO HS 03/20/25 04/14/25 History release 24 hr triamterene 37.5 1 cap PO DAILY 37.5/25mg 03/20/25 04/14/25 History mg-hydrochlorothiazide 25 mg capsule venlafaxine 100 mg tablet 100 mg PO DAILY 03/20/25 04/14/25 History New Prescriptions to Start Prescriptions: Allergies Allergy/AdvReac Type Severity Reaction Status Date / Time ciprofloxacin (From Cipro) Allergy Verified 10/11/24 14:36 codeine Allergy Verified 10/11/24 14:36 Gadolinium-Containing Allergy Verified 10/11/24 14:36 Contrast Medi Iodinated Contrast Media Allergy Verified 10/11/24 14:36 Penicillins Allergy Verified 10/11/24 14:36 Sulfa (Sulfonamide Allergy Verified 10/11/24 14:36 Antibiotics) sulfamethoxazole (From Allergy Verified 10/11/24 14:36 Bactrim) trimethoprim (From Bactrim) Allergy Verified 10/11/24 14:36 Assessment and Plan *Assessment and plan (1) Atrial fibrillation with rapid ventricular response: Status: Acute Category: Medical Code(s): I48.91 - Unspecified atrial fibrillation (2) Dehydration: Status: Acute Category: Medical Code(s): E86.0 - Dehydration (3) Hypomagnesemia: Status: Acute Category: Medical Code(s): E83.42 - Hypomagnesemia Plan A-fib RVR - known PAF, exacerbated in setting of mild dehydration and low Mg - Mg improving, pt hydrated - CHADS-VASC = 5, no OAC due to hx of spontaneous renal artery rupture which nearly killed her in 2019. Agreeable to refer back to Dr. Wilson for Watchman as outpatient. - As she is not anticoagulated, only option is rate control. Will not attempt cardioversion. - Currently rate controlled with home dose Coreg 25mg BID and addition of Cardizem 60mg TID - Plan: Continue Coreg 25, Change home dose Amlodipine to Cardizem CD 240, place 2 week monitor, d/c Triamterine and Continue Mg supplement, refer back to for LAAO Hypomagnesemia - Recurrent and often severe - Likely driven by triamterene hydrochlorothiazide despite oral magnesium supple - Patient agreeable to DC triamterene hydrochlorothiazide for now, we will monitor lites with - Continue magnesium supplement - Repeat labs outpatient Hypertension - Well-controlled here - Continue home dose carvedilol and losartan - Change amlodipine and triamterene hydrochlorothiazide to Cardizem 240 - Twice daily blood pressure log and office follow-up 1 week CAD - s/p MARYANN LAD 2021 - CCS = 0 - EKG: A-fib - Trop nml - Cont Plavix, Statin, BB Hx of Spontaneous Rupture of [place] Renal Artery 2018 - had anomylous 2 renal arteries, unclear why it ruptured, possibly was aneurysmal then exacerbated with prolonged resp failure from COVID early in pandemic - had subsequent large painful hematoma and infection - all of this surgically repaired at - seems unlikely there would be recurrence but pt understandably nervous about resuming OAC and LAAO seems the best choice for her *CV stable for DC. Follow up in our office next week for BP and A-fib management. CV DC Meds Continue Plavix 75 mg daily Continue atorvastatin 40 mg daily Continue carvedilol 25 mg daily Continue losartan 50 mg daily Discontinue amlodipine 2.5 mg daily Discontinue triamterene hydrochlorothiazide Start Cardizem CD 240 mg daily CV FU Cardiology clinic next Dr. Alejandro AGUILAR [facility] -patient will call to christian crowell
[2025-04-14] MEDS: INSULIN GLARGINE 100 UNITS/ML 3ML FLEXPEN 10 UNIT SUBCUT (09:36)
[2025-04-14] MEDS: LACTATED RINGERS 1000ML 500 ML 250 ML IV (14:45)
[2025-04-14] MEDS: METFORMIN 500MG TABLET 750 MG PO (16:30)
[2025-04-14 16:54] LABS: POC Glucose,Bedside 222 (70-110)
[2025-04-14 16:54] LABS: POC Glucose,Bedside 183 (70-110)
[2025-04-14] MEDS: ATORVASTATIN 40MG TABLET 40 MG PO (20:43)
[2025-04-14] MEDS: PANTOPRAZOLE 40MG TABLET 40 MG PO (20:43)
[2025-04-14] MEDS: dilTIAZem ER 240MG CAPSULE 240 MG PO (20:44)
[2025-04-14] MEDS: CARVEDILOL 12.5MG TABLET 12.5 MG PO (20:44)
[2025-04-14 20:56] LABS: POC Glucose,Bedside 142 (70-110)
[2025-04-15] VITALS: BP 103/53; PULSE 60; PULSE 70; RESP 14; TEMP 36.4; O2SAT 94
[2025-04-15 04:00] VITALS: BP 112/63; PULSE 50; PULSE 63; RESP 12; TEMP 37.2; O2SAT 93; BMI 42.7
[2025-04-15] MEDS: humaLOG 100 UNITS/ML 10ML VIAL (SSI) SUBCUT (06:01)
[2025-04-15] MEDS: LEVOTHYROXINE 50MCG (0.05MG) TAB 50 MCG PO (06:06)
--- NOTE | 2025-04-15 06:17 | PC.NURSE ---
Pt. is alert and orientated x 4. Pt. is on room air. Pt. has been resting quietly all night. Denies any chest pain, shortness of breath, or palpatations. Pt. has event monitor in place. Pt. states no dizziness or lightheaded when up to bathroom. Pt plan to be discharged home today with the event monitor in place for 2 week. Pt's heaert rates in the 60's -70's overnight. Personal items and call stanton in reach. Bed in low and locked position, Safety measures in place.
--- NOTE | 2025-04-15 07:04 | EXP.DC.SUM ---
General Admission date:: 04/14/25 Discharge date: 04/15/25 HPI HPI HPI: Mirtha Lester is a 75-year-old female with medical history significant for paroxysmal A-fib (not on anticoagulation due to history of renal hemorrhage) since 20s, hypertension, type 2 diabetes, hypothyroidism, GERD, anxiety/depression who presents with her palpitations. She states she was in normal health this morning when cooking breakfast when all of a sudden she began to feel uneasy with heart palpitations, dizziness. She measured her heart rate which was in the 150s. Denies chest pain, shortness of breath. These episodes were on and off throughout the day at which point patient proceeded to the ED. Initial heart rate in the 140s which was medically managed with IV Lopressor 5 mg, with repeat EKG showed rate controlled A-fib. She was offered cardioversion in the ED but patient declined. She was discharged in stable condition advised to follow-up with cardiology. However, shortly after returning home patient continued to have episodes of heart racing with again heart rate in the 150s. Patient returned via EMS, and was found again to be in A-fib RVR. Rate controlled with IV Lopressor 5 mg. Patient denies any recent medication changes at has been adherent, does not drink caffeine, but does endorse significant life stressors recently. She was recently admitted for periodontitis, treated with IV antibiotics and discharged in stable condition with follow-up with dentist with resolution of symptoms. Workup in the ED significant for TSH 0.02, free T4 normal, unremarkable CXR. Case discussed with ED provider decision was made to admit patient for recurrent A-fib RVR. Hospital Course Hospital Course Hospital Course: Mirtha Lester is a 75-year-old female with medical history significant for paroxysmal A-fib (not on anticoagulation due to history of renal hemorrhage) since 20s, hypertension, type 2 diabetes, hypothyroidism, GERD, anxiety/depression who presents with heart palpitations. She states she was in normal health this morning when cooking breakfast when all of a sudden she began to feel uneasy with heart palpitations, dizziness. She measured her heart rate which was in the 150s. Denies chest pain, shortness of breath. These episodes were on and off throughout the day at which point patient proceeded to the ED. Initial heart rate in the 140s which was medically managed with IV Lopressor 5 mg, with repeat EKG showed rate controlled A-fib. She was offered cardioversion in the ED but patient declined. She was discharged in stable condition advised to follow-up with cardiology. However, shortly after returning home patient continued to have episodes of heart racing with again heart rate in the 150s. Patient returned via EMS, and was found again to be in A-fib RVR. Rate controlled with IV Lopressor 5 mg. Patient denies any recent medication changes at has been adherent, does not drink caffeine, but does endorse significant life stressors recently. She was recently admitted for periodontitis, treated with IV antibiotics and discharged in stable condition with follow-up with dentist with resolution of symptoms. Workup in the ED significant for TSH 0.02, free T4 normal, unremarkable CXR, CBC, CMP. Case discussed with ED provider decision was made to admit patient for recurrent A-fib RVR. Symptoms improved with adjustments in medications and initiation of diltiazem. Plan to follow-up with cardiology in a week. Stable to discharge home. Problems addressed as follows: #Paroxysmal A-fib RVR #History of renal hemorrhage ? Presented with recurrent heart palpitations, diaphoresis, dizziness. Found to be in A-fib RVR with HR in 140s, rate controlled with IV Lopressor. She has had significant life stressors lately. Initiated on diltiazem after consultation with cardiology. Heart rate improved significantly. Blood pressure somewhat soft with combo of diltiazem and carvedilol. Will decrease carvedilol to 12 and half milligrams twice daily. Continue Plavix 75 mg daily. Holding on anticoagulation due to history of renal hemorrhage. [id number] score 5. Discussed risks and benefits of Watchman device. Patient would like to pursue consultation for Watchman device. Encouraged her to reach out to [facility] as she is already established with them. Continue diltiazem 240 mg nightly for rate control. Follow-up with cardiology this week. # Hypomagnesemia. Recurrent based on previous visits. Low on admission at 1.2. Continue supplementation with home magnesium 800 mg daily. Discontinue diuretics out of concern that they are contributing to her hypomagnesemia. Needs repeat labs in 1 week. #Hypothyroidism ? TSH well-controlled at 0.3. Continue home levothyroxine 100 mcg daily. #Hypertension ? Holding home losartan. Blood pressure improved with addition of diltiazem. Discontinued home amlodipine. #Type 2 diabetes #Obesity ? Hemoglobin A1c 9.0% on 03/19/2021. Poorly controlled. Continue home regimen at this time include metformin 750 mg nightly, Farxiga 10 mg daily. Patient awaiting insurance approval to initiate Ozempic. Encouraged her to start this for improved control and weight loss. #CKD stage IIIb ? Stable during admission. Creatinine 1.1 on day of discharge. BUN improved to 31. Holding diuretics at discharge. #Anxiety/depression ? Continue home venlafaxine 100 mg daily. Seemed anxious during admission. Recommend follow-up with behavioral health to consider medication adjustment or alternative therapy #GERD: Continue pantoprazole 40 mg daily Total time spent on discharge 32 minutes in counseling, documentation, chart review, and direct care with patient. Exam Data for Last 24 hours Vital signs and Labs for Last 24 Hours: Temp Pulse Resp BP Pulse Ox O2 Del Method 97.8 F 61 16 103/47 L 94 L Room Air 04/14/25 08:00 04/14/25 08:00 04/14/25 08:00 04/14/25 08:00 04/14/25 08:00 04/14/25 08:00 Laboratory Results - last 24 hr 04/13/25 17:26: Free T4 1.28 04/14/25 01:01: POC Glucose 161 H 04/14/25 05:41: WBC 9.9, RBC 4.35, Hgb 13.7, Hct 40.4, MCV 92.9, MCH 31.5 H, MCHC 33.9, RDW 13.4, Plt Count 239, MPV 9.6, Neut % (Auto) 61.6, Lymph % (Auto) 27.2, Crawford % (Auto) 7.7, Eos % (Auto) 2.7, Baso % (Auto) 0.5, Neut # (Auto) 6.1, Lymph # (Auto) 2.7, Crawford # (Auto) 0.8, Eos # (Auto) 0.3, Baso # (Auto) 0.1, Sodium 139, Potassium 4.1, Chloride 100, Carbon Dioxide 29, Anion Gap 14.1, BUN 35 H, Creatinine 1.40 H, Estimated Creat Clear 26, Estimated GFR 37 L, Est GFR ( Amer) 44 L, Glucose 195 H D, Calcium 10.1, Magnesium 1.8 D, Total Bilirubin 0.4, AST 20, ALT 16 D, Alkaline Phosphatase 97, Total Protein 7.0, Albumin 4.0 D, Globulin 3.0, Albumin/Globulin Ratio 1.3, TSH 0.32 L D 04/14/25 05:54: POC Glucose 178 H I & O for Last 24 hours: Intake & Output 04/11/25 04/12/25 04/13/25 04/14/25 23:59 23:59 23:59 23:59 Intake Total 120 / 120 Output Total 650 / 650 Balance -530 / -530 Weight 106.141 kg 101.287 kg Constitutional Constitutional: no acute distress, morbidly obese and cooperative *Routine HEENT Exam Head: Present normocephalic and facial swelling (Left jaw) Eye: Present EOMI ENT: Present mucous membranes moist *Routine Neck Exam Neck: Present supple and full ROM *Routine Respiratory Exam Respiratory: Present CTA bilaterally, normal respiratory effort, able to speak in complete sentences and symmetric chest movement *Routine Cardiovascular Exam Cardiovascular: Present RRR; Absent murmur *Routine Abdominal Exam Abdominal: Present soft and normoactive bowel sounds; Absent tenderness or distended *Routine Rectal Exam Patient deferred: visual exam *Routine Exam Patient deferred: external exam *Routine Extremities Exam Extremities: Present full ROM; Absent edema *Routine Skin Exam Skin: Present intact and erythema (Left jaw) *Routine Neurological Exam Neurological: Present alert, oriented X3 and normal speech Results Data Completed and Pending Labs on day of discharge: Labs from last 24 hours 04/14/25 04/14/25 04/14/25 05:54 05:41 01:01 WBC 9.9 RBC 4.35 Hgb 13.7 Hct 40.4 MCV 92.9 MCH 31.5 H MCHC 33.9 RDW 13.4 Plt Count 239 MPV 9.6 Neut % (Auto) 61.6 Lymph % (Auto) 27.2 Crawford % (Auto) 7.7 Eos % (Auto) 2.7 Baso % (Auto) 0.5 Neut # (Auto) 6.1 Lymph # (Auto) 2.7 Crawford # (Auto) 0.8 Eos # (Auto) 0.3 Baso # (Auto) 0.1 Sodium 139 Potassium 4.1 Chloride 100 Carbon Dioxide 29 Anion Gap 14.1 BUN 35 H Creatinine 1.40 H Estimated Creat Clear 26 Estimated GFR 37 L Est GFR ( Amer) 44 L Glucose 195 H D POC Glucose 178 H 161 H Calcium 10.1 Magnesium 1.8 D Total Bilirubin 0.4 AST 20 ALT 16 D Alkaline Phosphatase 97 Total Protein 7.0 Albumin 4.0 D Globulin 3.0 Albumin/Globulin Ratio 1.3 TSH 0.32 L D Free T4 04/13/25 17:26 WBC RBC Hgb Hct MCV MCH MCHC RDW Plt Count MPV Neut % (Auto) Lymph % (Auto) Crawford % (Auto) Eos % (Auto) Baso % (Auto) Neut # (Auto) Lymph # (Auto) Crawford # (Auto) Eos # (Auto) Baso # (Auto) Sodium Potassium Chloride Carbon Dioxide Anion Gap BUN Creatinine Estimated Creat Clear Estimated GFR Est GFR ( Amer) Glucose POC Glucose Calcium Magnesium Total Bilirubin AST ALT Alkaline Phosphatase Total Protein Albumin Globulin Albumin/Globulin Ratio TSH Free T4 1.28 DS: Diagnosis Discharge Diagnosis (1) AF (paroxysmal atrial fibrillation): Status: Acute Code(s): I48.0 - Paroxysmal atrial fibrillation (2) Hypothyroidism: Status: Acute Code(s): E03.9 - Hypothyroidism, unspecified (3) Diabetes mellitus, type 2: Status: Acute Code(s): E11.9 - Type 2 diabetes mellitus without complications (4) Hypertension: Status: Acute Code(s): I10 - Essential (primary) hypertension Qualifiers: Hypertension type: primary hypertension Qualified Code(s): I10 - Essential (primary) hypertension (5) Obesity: Status: Acute Code(s): E66.9 - Obesity, unspecified Qualifiers: Body mass index: BMI 45.0-49.9 Obesity classification: adult class 3 (BMI >= 40) Obesity type: due to excess calories Serious obesity comorbidity presence: with serious comorbidity Qualified Code(s): E66.01 - Morbid (severe) obesity due to excess calories; Z68.42 - Body mass index (BMI) 45.0-49.9, adult Meds Home Medications and Allergies Home Medications ?Medication ?Instructions ?Recorded ?Confirmed ?Type ascorbate calcium (vitamin C) 500 500 mg PO DAILY 05/22/22 04/14/25 History mg tablet atorvastatin 40 mg tablet 40 mg PO HS 05/22/22 04/14/25 History cholecalciferol (vitamin D3) 50 50 mcg PO DAILY 05/22/22 04/14/25 History mcg (2,000 unit) capsule levothyroxine 100 mcg tablet 100 mcg PO DAILY 05/22/22 04/14/25 History clopidogrel 75 mg tablet (Plavix) 75 mg PO DAILY #30 tabs 07/01/22 04/14/25 Rx pantoprazole 40 mg tablet,delayed 40 mg PO DAILY #30 tabs 07/01/22 04/14/25 Rx release (Protonix) magnesium aspart,citrate,oxide 800 mg PO DAILY 03/03/24 04/14/25 History dapagliflozin propanediol 10 mg 10 mg PO DAILY 03/20/25 04/14/25 History tablet (Farxiga) metformin 750 mg tablet,extended 750 mg PO HS 03/20/25 04/14/25 History release 24 hr venlafaxine 100 mg tablet 100 mg PO DAILY 03/20/25 04/14/25 History diltiazem HCl 240 mg 240 mg PO HS #30 caps 04/14/25 Rx capsule,extended release 24 hr (Cartia XT) losartan 50 mg tablet 25 mg (1/2 x 50 mg) PO DAILY 30 04/14/25 04/14/25 Rx Held on 04/15/25. days #0 tabs Instructions: pending follow-up with PCP/Cardiology carvedilol 25 mg tablet 12.5 mg (1/2 x 25 mg) PO BID 30 04/15/25 04/14/25 Rx days #30 tabs New Prescriptions to Start Prescriptions: diltiazem HCl [Cartia XT] Dano Romero Allergies Allergy/AdvReac Type Severity Reaction Status Date / Time ciprofloxacin (From Cipro) Allergy Verified 10/11/24 14:36 codeine Allergy Verified 10/11/24 14:36 Gadolinium-Containing Allergy Verified 10/11/24 14:36 Contrast Medi Iodinated Contrast Media Allergy Verified 10/11/24 14:36 Penicillins Allergy Verified 10/11/24 14:36 Sulfa (Sulfonamide Allergy Verified 10/11/24 14:36 Antibiotics) sulfamethoxazole (From Allergy Verified 10/11/24 14:36 Bactrim) trimethoprim (From Bactrim) Allergy Verified 10/11/24 14:36 Discharge Plan Disposition Patient Disposition: Home, Self-Care Condition: Fair Follow up Plan Follow up with: Jerson Jackson PA [Physician [facility], Cardiology] - 04/18/25 11:15 am Heladio Palm MD [Primary Care Provider, Internal Medicine] - Enter time for follow up Prescriptions/Medication Reconciliation: New diltiazem HCl [Cartia XT] 240 mg capsule,extended release 24hr 240 mg PO HS Qty: 30 0RF Continued atorvastatin 40 mg tablet 40 mg PO HS levothyroxine 100 mcg tablet 100 mcg PO DAILY Patient Comments: TAKE 1 TABLET BY MOUTH EVERY DAY ascorbate calcium (vitamin C) 500 mg tablet 500 mg PO DAILY cholecalciferol (vitamin D3) 50 mcg (2,000 unit) capsule 50 mcg PO DAILY clopidogrel [Plavix] 75 mg tablet 75 mg PO DAILY Qty: 30 5RF pantoprazole [Protonix] 40 mg tablet,delayed release (DR/EC) 40 mg PO DAILY Qty: 30 5RF magnesium aspart,citrate,oxide 400 mg magnesium capsule 800 mg PO DAILY venlafaxine 100 mg tablet 100 mg PO DAILY metformin 750 mg Tablet Extended Release 24 Hr 750 mg PO HS dapagliflozin propanediol [Farxiga] 10 mg tablet 10 mg PO DAILY Changed losartan 50 mg tablet 25 mg PO DAILY 30 Days Qty: 0 0RF carvedilol 25 mg tablet 12.5 mg PO BID 30 Days Qty: 30 0RF Patient Comments: TAKE 1 TABLET BY MOUTH TWICE A DAY Discontinued amlodipine [Norvasc] 2.5 mg tablet 2.5 mg PO DAILY Qty: 90 3RF triamterene-hydrochlorothiazid 37.5-25 mg capsule 1 cap PO DAILY Other Ambulatory Orders: Basic Metabolic Panel (Routine) Timeframe: 2 Days Facility: [facility] - Location: Laboratory Ordered By: Dano Romero Magnesium (Routine) Timeframe: 2 Days Facility: [facility] - Location: Laboratory Ordered By: Dano Romero Problem Reconciliation Problems Reviewed?: Yes Patient Discharge Instructions ACTIVITY: Continue current activity DIET: continue same diet Patient Instructions: DI for Atrial Fibrillation, Stop Light COPD Print Language: Wolof Providers Primary Care Provider: Heladio Palm Admit Provider: Luis Case Attending Provider: Luis Case
[2025-04-15 07:22] LABS: Hematocrit 38.7 % (37.0-47.0); Hemoglobin 12.9 g/dL (12.2-16.2); Immature Granulocytes % 0.4 %; Mean Corpuscular HGB Conc 33.3 g/dL (31.8-35.4); Mean Corpuscular Hemoglobin 30.8 pg (27.0-31.2); Mean Corpuscular Volume 92.4 fl (81-99); Nucleated Red Blood Cells % 0 %; Platelet Count 235 K/mm3 (142-424); Red Blood Count 4.19 M/mm3 (4.20-5.40); Red Cell Distribution Width-SD 45.9 fL; White Blood Count 9.5 K/mm3 (4.8-10.8)
[2025-04-15 07:33] LABS: Albumin Level 3.9 g/dl (3.5-5.0); Chloride 102 mmol/L (98-107); Potassium 3.6 mmoL/L (3.5-5.1); Sodium 134 mmol/L (136-145)
[2025-04-15 07:36] LABS: Alanine Aminotransferase 19 U/L (12-78); Albumin/Globulin Ratio 1.3 (1.1-1.8); Anion Gap 11.6 mEq/L (5-15); Aspartate Amino Transferase 23 U/L (14-36); Blood Urea Nitrogen 31 mg/dl (7-17); Calcium 9.6 mg/dl (8.4-10.2); Carbon Dioxide 24 mmol/L (22.0-30.0); Creatinine Clearance Estimated 33 mL/min (50-200); Creatinine,Serum 1.10 mg/dl (0.52-1.04); Estimated Glomerular Filt Rate 48 ml/min (>60); GFR (African American) 58 ML/MIN (>60); Globulin 3.1 g/dL (1.3-3.2); Glucose 167 mg/dl (74-100); Magnesium 1.5 mg/dl (1.6-2.3); Total Protein,Serum 7.0 g/dl (6.3-8.2)
[2025-04-15 07:47] VITALS: BP 125/67; PULSE 67; RESP 20; TEMP 36.6; O2SAT 95
[2025-04-15 07:50] LABS: Alkaline Phosphatase 92 U/L (38-126); Bilirubin,Total 0.4 mg/dl (0.2-1.3)
[2025-04-15 08:00] VITALS: PULSE 60; O2SAT 95
[2025-04-15 08:05] LABS: Thyroid Stimulating Hormone 1.20 uIU/mL (0.465-4.68)
[2025-04-15] MEDS: DAPAGLIFLOZIN PROPANEDIOL 10 MG TABLET PO (08:17)
[2025-04-15] MEDS: CARVEDILOL 12.5MG TABLET 12.5 MG PO (08:17)
[2025-04-15] MEDS: INSULIN GLARGINE 100 UNITS/ML 3ML FLEXPEN 10 UNIT SUBCUT (08:18)
[2025-04-15] MEDS: MAGNESIUM SULFATE IN WATER 2 GM/50 ML PIGGYBACK IV (08:23)
[2025-04-15 09:38] LABS: POC Glucose,Bedside 187 (70-110)
--- NOTE | 2025-04-15 10:32 | PC.NURSE ---
Patient left from unit via wheelchair at 1020 with MARINO Trinidad.
--- NOTE | 2025-04-18 10:59 | SW/DCPLANNER ---
Spoke with patient on the phone. Patient stated that she is at her upcoming appointment. Patient stated that she was able to get her new medicine picked up from clinic pharmacy. Patient stated that she is doing good. Patient stated that she has no concerns or questions at this time. [place]
== END 2025-04-15 10:21 | disposition home or self-care (01) ==
LOC: ER 23:03 → 2ND 04-14 00:21
PROVIDERS: Admitting Provider Student in an Organized Health Care Education/Training Program; Emergency Provider Student in an Organized Health Care Education/Training Program; PCP Internal Medicine Adolescent Medicine; Visit Provider Student in an Organized Health Care Education/Training Program
DX: I48.0 Paroxysmal atrial fibrillation (principal); E03.9 Hypothyroidism, unspecified; E11.22 Type 2 diabetes mellitus with diabetic chronic kidney disease; E66.01 Morbid (severe) obesity due to excess calories; E86.0 Dehydration; I13.10 Hypertensive heart and chronic kidney disease without heart failure, with stage 1 through stage 4 chronic kidney disease, or unspecified chronic kidney disease; I25.118 Atherosclerotic heart disease of native coronary artery with other forms of angina pectoris; E78.5 Hyperlipidemia, unspecified; E83.42 Hypomagnesemia; N18.32 Chronic kidney disease, stage 3b; F41.9 Anxiety disorder, unspecified; F32.A Depression, unspecified; K21.9 Gastro-esophageal reflux disease without esophagitis; Z68.42 Body mass index [BMI] 45.0-49.9, adult; Z88.1 Allergy status to other antibiotic agents; Z95.5 Presence of coronary angioplasty implant and graft; Z88.6 Allergy status to analgesic agent; Z91.041 Radiographic dye allergy status; Z88.0 Allergy status to penicillin; Z88.2 Allergy status to sulfonamides; Z87.891 Personal history of nicotine dependence; Z79.02 Long term (current) use of antithrombotics/antiplatelets; Z79.84 Long term (current) use of oral hypoglycemic drugs; Z79.890 Hormone replacement therapy; Z79.899 Other long term (current) drug therapy
CPT/HCPCS: 96361; 96365; 96375; 36415; 80053; 82962; 83735; 84439; 84443; 85025; 93005; 93270; 93306; 99285; G0378; J3475; J7120

== ENCOUNTER 2025-04-18 12:08 | Outpatient (CLI) | payer MEDICARE, OTHER, SELFPAY ==
--- OUTSIDE RECORDS SUMMARY | 2019-05-11 19:56 | XMS_ITS | Encounter Summary ---
[facility] [address] [place] [address] Care Team Providers Care Squadron Worker Name Role Phone Huber Grossman MD Primary Care Provider Barbara valladares Reason for Referral * Diagnostic Medical (Routine) - Closed Specialty Diagnoses / Procedures Referred By Contac t Referred To Contact Sleep Medicine Diagnoses DELL (obstructive sleep apnea) Procedures Polysomnography 4 or More Parameters Luis Galvan MD Phone: tel: fax: [facility] [address] [address] Phone: tel: fax: Referral ID Status Reason Start Date Expiration Date Visits Re quested Visits Authorized [id number] Closed 12/20/2018 12/20/2019 1 1 Reason for Visit * Diagnostic Medical (Routine) - Closed Specialty Diagnoses / Procedures Referred By Contac t Referred To Contact Sleep Medicine Diagnoses DELL (obstructive sleep apnea) Procedures Polysomnography 4 or More Parameters Luis Galvan MD Phone: tel: fax: [facility] [address] [address] Phone: tel: fax: Referral ID Status Reason Start Date Expiration Date Visits Re quested Visits Authorized [id number] Closed 12/20/2018 12/20/2019 1 1 Encounter Details Date Type Department Care Team (Late st Contact Info) Description 05/11/2019 7:56 PM EDT Hospital Encounter [facility] [address] [place] [phone] Luis Galvan MD [address] [place] [address] DELL (No follow-up); DELL (obstructive sleep apnea) [...] She underwent a home sleep study at [facility] a while ago which was apparently [...] was noted to be present by the desktop technician in attendance. D) Oxygen saturation: Oxygen [...] documented as of this encounter Care Teams Squadron Worker Relationship Specialty Start Date End Date Huber Grossman MD PCP - General Family Medicine 02/08/18 09/28/19 documented as of this encounter
--- OUTSIDE RECORDS SUMMARY | 2025-04-18 12:11 | XMS_ITS | Encounter Summary ---
Author Organization Healthcare Address [address] [place] [address] Care Team Providers Care Inspector Machine Parts Name Role Phone Heladio Palm MD Primary Care Provider [phone] Reason for Visit * Reason Onset Date Comments HCN Clinical Concern/Question 02/27/2025 Encounter Details Date Type Department Care Team (Late st Contact Info) Description 02/27/2025 Telephone [facility] [address], [address] [place] [address] Alejandra Camacho MD [address] [place] [address] HCN Clinical Concern/Question Social History [...] the initial request. Best contact number: Other: [phone] Optimal time of day to reach caller: [...] will receive notification of the communication/outcome via [employer]. * Telephone Encounter - Whitney Doan - [...] be sent again. Best contact number: Other: [phone] Optimal time of day to reach caller: [...] communication/outcome via MyChart. * Telephone Encounter - Whitney Doan - 02/27/2025 12:19 PM EDT Received telephone readback orders from Dr. 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 Best contact number: Other: [phone] Optimal time of day to reach caller: ANYTIME Additional comments/information from caller: None Note: Please do not reply to this message. Follow-up communication and further actions as a result of this message need to be communicated with the patient directly, if the patient is not active onMyChart. If the patient is active on MyChart, they will receive notification of the communication/outcome via [employer]. documented in this encounter Plan of Treatment Upcoming Encounters Date Type Department Care Team (Late st Contact Info) Description 04/24/2025 2:10 PM EDT Office Visit [facility] [address] [place] [address] Bryan Allen MD [address] [place] [phone] 01/26/2026 11:00 AM EDT Office Visit [facility] [address] [place] [address] Luis Olivares MD [address] [place] [address] Scheduled Orders Name Type Priority Associated Diagnoses Orde r Schedule PTH Intact Total Lab Routine Hyperparathyroidism, unspecified (CMS/HCC) Expected: 02/27/2025 (Approximate), Expires: 08/29/2026 documented as of this encounter Visit Diagnoses Diagnosis Renal osteodystrophy- Primary Hyperparathyroidism, unspecified (CMS/HCC) Hyperparathyroidism, unspecified documented in this encounter Additional Health Concerns Assessment Noted Time PHQ-9 Depression Total Score: 12 023 12:53 PM EDT A fall risk assessment has been complete d for the patient 12/30/2024 10:32 AM EDT A Body Mass Index follow-up plan has been documented for the patient 12/30/2024 11:11 AM EDT documented as of this encounter Care Teams Inspector Machine Parts Relationship Specialty Start Date End Date Heladio Palm MD [address] [place] [address] PCP - General Internal Medicine 05/02/22 documented as of this encounter
--- OUTSIDE RECORDS SUMMARY | 2025-04-18 12:11 | XMS_ITS | Encounter Summary ---
Author Organization Healthcare Address [address] [place] [address] Care Team Providers Care Neck Fitter Name Role Phone Heladio Palm MD Primary Care Provider + [phone] Encounter Details Date Type Department Care Team ([facility] Contact Info) Description 02/27/2025 Orders Only [facility] Met[facility] [address] [facility], [address] [place] [address] Whitney Doan Hypercalcemia (Primary Dx) [...] Description 04/24/2025 2:10 PM EDT Office Visit [facility] [place] [facility] [address] [place] [address] Bryan Allen MD [address] [place] [phone] 01/26/2026 11:00 AM EDT Office Visit [facility] [address] [place] [address] Luis Olivares MD [address] [facility] [address] [place] [address] Scheduled Orders Name Type Priority [...] documented as of this encounter Care Teams Neck Fitter Relationship Specialty Start Date End Date Heladio Palm MD [address] [place] [address] PCP - General Internal Medicine 05/02/22 documented as of this encounter
--- OUTSIDE RECORDS SUMMARY | 2025-04-18 12:11 | XMS_ITS | Encounter Summary ---
Author Organization Healthcare Address [address] [place] [id number] Care Team Providers Care Armature Connector Name Role Phone Heladio Palm MD Primary Care Provider + [phone] Encounter Details Date Type Department Care Team ([facility] Contact Info) Description 02/16/2025 Telephone [facility] [address] [facility], [address] [place] [address] Daxa Martin MBBS [address] [place], [place] [id number] Social History Tobacco Use Types Packs/Day Years [...] Martin does not have any openings in thecritical access hospital Best contact number and optimal time of day to reach caller: [phone] Note: Please do not reply to this message. Follow-up communication and further actions as a result of this message need to be communicated with the patient directly, if the patient is not active onMyChart. If the patient is active on MyChart, they will receive notification of the communication/outcome via [employer]. * Telephone Encounter - Whitney Dubon - 02/17/2025 9:11 AM EDT L/m to reschedule * Telephone Encounter - Rosie Dewitt - 02/16/2025 9:25 AM EDT Clinical Concern/Question Reason for Call: pt calling to [facility] to migraine she has today, sending to clinic for availability Best contact number: Other: [phone] Optimal time of day to reach caller: ANYTIME Additional comments/information from caller: None Note: Please do not reply to this message. Follow-up communication and further actions as a result of this message need to be communicated with the patient directly, if the patient is not active onMyChart. If the patient is active on MyChart, they will receive notification of the communication/outcome via [employer]. documented in this encounter Plan of Treatment Upcoming Encounters Date Type Department Care Team (Late st Contact Info) Description 04/24/2025 2:10 PM EDT Office Visit [facility] [place] [facility] [address] [place] [address] Bryan Allen MD [address] [place] [address] 01/26/2026 11:00 AM EDT Office Visit [facility] [address] [place] [address] Luis Olivares MD [address] [place] [address] documented as of this encounter [...] documented as of this encounter Care Teams Armature Connector Relationship Specialty Start Date End Date Heladio Palm MD [address] [place] [address] PCP - General Internal Medicine 05/02/22 documented as of this encounter
--- OUTSIDE RECORDS SUMMARY | 2025-04-18 12:11 | XMS_ITS | Encounter Summary ---
Author Organization Healthcare Address [address] [place] [address] Care Team Providers Care Underwriting Internship Name Role Phone Heladio Palm MD Primary Care Provider + [phone] Encounter Details Date Type Department Care Team (Late st Contact Info) Description 03/02/2025 Telephone [facility] [address] [place] [address] Luis Olivares MD [address] [address] Social History Tobacco Use Types [...] date Send To: Mail Best contact number: [phone] (home) Optimal time of day to reach caller: ANYTIME Additional comments/information from caller: None Note: Please do not reply to this message. Follow-up communication and further actions as a result of this message need to be communicated with the patient directly, if the patient is not active onMyChart. If the patient is active on MyChart, they will receive notification of the communication/outcome via [employer]. documented in this encounter Plan of Treatment Upcoming Encounters Date Type Department Care Team (Late st Contact Info) Description 04/24/2025 2:10 PM EDT Office Visit [facility] [place] [address] [place] [address] Bryan Allen MD [address] [place] [address] 01/26/2026 11:00 AM EDT Office Visit [facility] [address] [place] [address] Luis Olivares MD [address] [facility] [address] [place] [address] documented as of this encounter [...] documented as of this encounter Care Teams Underwriting Internship Relationship Specialty Start Date End Date Heladio Palm MD [address] [place] [address] PCP - General Internal Medicine 05/02/22 documented as of this encounter
--- OUTSIDE RECORDS SUMMARY | 2025-04-18 12:12 | XMS_ITS | Clinical Summary ---
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 [place] [address] None, None 03/13/2025 Telephone [facility] Nephrology, Bone & Mineral Metabolism [address] [facility], [address] [place] [address] Alejandra Camacho MD 03/12/2025 Travel 03/02/2025 Telephone [facility] [address] [place] [address] Luis Olivares MD 02/27/2025 Orders Only [facility] Nephrology, Bone & Mineral Metabolism [address] [facility], [address] [place] [address] Whitney Doan Hypercalcemia (Primary Dx) 02/27/2025 [facility] Nephrology, Bone & Mineral Metabolism [address] [facility], [address] [place] [address] Alejandra Camacho MD HCN Clinical Concern/Question 02/16/2025 [facility] Nephrology, Bone & Mineral Metabolism [address] [facility], [address] [place] [address] Daxa Martin MBBS 02/09/2025 [facility] Nephrology, Bone & Mineral Metabolism [address] [facility], [address] [place] [address] Lashonda William, DIRECT MARKETING ANALYST 02/09/2025 [facility] Nephrology, Bone & Mineral Metabolism [address] [facility], [address] [place] [address] Lashonda William, DIRECT MARKETING ANALYST 02/02/2025 [facility] Nephrology, Bone & Mineral Metabolism [address] [facility], [address] [place] [address] Whitney Doan 02/02/2025 Travel 01/30/2025 Travel [...] Description 04/24/2025 2:10 PM EDT Office Visit [facility] [place] [address] [place] [phone] Bryan Allen MD [address] [place] [address] 01/26/2026 11:00 AM EDT Office Visit [facility] [address] [place] [address] Luis Olivares MD [address] [place] [address] Health Maintenance Due Date Last Done Comments [facility]-Bone Density Scan 1950 [facility]-Infant/Child/Adol SDOH Screenings 1950 Diabetes: Dental Exam 1959 [facility]- SDOH Screenings 1967 [facility]-Adult SDOH Screenings 1967 [facility]-Hepatitis A Vaccines (1 of 2 - Risk 2-dose series) 02/02/1968 [facility]-Pneumococcal Vaccine: 50+ Years (2 of 2 - PPSV23) 07/22/2016 05/27/2016 [facility]-Medicare Annual Wellness (AWV) 02/24/2019 02/24/2018 [facility]-Diabetes: Hemoglobin A1C 05/22/2020 11/23/2019, 11/23/2019, 09/07/2019, Additional history exists DDC-DASRU-25 Vaccine (4 - season) 2024 06/27/2021, 11/01/2020, 10/04/2020 [facility]-Zoster Vaccines (3 of 3) 06/14/2024 04/19/2024, 04/23/2017 [facility]-Influenza Vaccine (#1) 05/08/202507/19, 06/27/2021, 06/04/2020, Additional history exists [facility]-Depression Screening 08/08/2025 08/08/2024, 1002/2023 [facility]-DTaP,Tdap,and Td Vaccines (2 - Td or Tdap) 03/02/2035 03/02/2025 [facility]-Hepatitis C Screening Completed 12/13/2019, [facility]-Breast Cancer [...] <6.0% Children and Adolescents <7.5% . Source: [place] [employer]. Standards of medical care in diabetes, 2017. Diabetes Care.2017:40 (suppl 1):S1-S135. . HbA1c assay performed by an ion-exchange chromatography method that is certified traceable to the DCCT. 11/23/2019 2:45 PM EDT 11/23/2019 2:59 PM EDT us Deng Brumfield SAFETY ASSISTANT LAB BLOOD ORDERABLES Fadia ramirez Result SUNQUEST from Last 3 Months or Most Recently Relevant to Health Maintenance Insurance MEDICARE AETNA Care Teams Cook Pressure Relationship Specialty Start Date End Date Heladio Palm MD [address] [place] [address] PCP - General Internal Medicine 05/02/22
--- OUTSIDE RECORDS SUMMARY | 2025-04-18 12:12 | XMS_ITS | Encounter Summary ---
Author Organization Healthcare Address [address] [place] [address] Care Team Providers Care Ship Carpenter Name Role Phone Heladio Palm MD Primary Care Provider + [phone] Encounter Details Date Type Department Care Team [...] Description 04/24/2025 2:10 PM EDT Office Visit [facility] [place] Sand[place] [address] [facility] [place] [address] Bryan Allen MD [address] [place] [phone] 01/26/2026 11:00 AM EDT Office Visit [facility] [address] [place] [address] Luis Olivares MD [address] [place] [address] documented as of this encounter [...] documented as of this encounter Care Teams Ship Carpenter Relationship Specialty Start Date End Date Heladio Palm MD [address] [place] [address] PCP - General Internal Medicine 05/02/22 documented as of this encounter
--- OUTSIDE RECORDS SUMMARY | 2025-04-18 12:12 | XMS_ITS | Clinical Summary ---
Author Organization [facility] Address [address] [place] [address] Care Team Providers Care Real Estate Associate Name Role Phone Dano Romero MD Primary Care Provider [phone] Allergies Active Allergy Reactions Criticality Noted Date [...] (LIPITOR) 40 MG tablet 0 Active Biotin 45275 MCG tablet 1 Active carvedilol (COREG) 25 [...] - 5.60 % 09/07/2019 4:51 PM EST [facility] Blood Venipuncture / Unknown 09/07/2019 4:10 PM EST 09/07/2019 4:19 PM EST Narrative [facility] - 09/07/2019 4:51 PM EST Hemoglobin A1C Ranges: Increased Risk for Diabetes 5.7% to 6.4% Diabetes >= 6.5% Diabetic Goal < 7.0% Sammie Morales DNP, RAND MAKER LAB BLOOD ORDERABLES Fi nal Result [facility]
[address] [place] [address], * SCANNED - INFLUENZA (06/24/2019) Huber Grossman MD CHART REVIEW TABS Final Re sult * (ABNORMAL) Lipid Panel (03/25/2019 10:33 AM EDT) Total Cholesterol 152 0 - 200 mg/dL 03/25/2019 6:52 PM EDT [facility] Triglycerides 165(H) 0 - 150 mg/dL 03/25/2019 6:52 PM EDT [facility] HDL Cholesterol 37(L) 40 - 60 mg/dL 03/25/2019 6:52 PM EDT [facility] LDL Cholesterol 82 0 - 100 mg/dL 03/25/2019 6:52 PM EDT [facility] VLDL Cholesterol 33 5 - 40 mg/dL 03/25/2019 6:52 PM EDT [facility] LDL/HDL Ratio 2.22 03/25/2019 6:52 PM EDT [facility] Blood Left upper arm structure / Unknown Venipuncture / Unknown 03/25/2019 10:33 AM EDT 03/25/2019 10:33 AM EDT Narrative [facility] - 03/25/2019 6:52 PM EDT Cholesterol [...] MD LAB BLOOD ORDERABLES Final Re sult [facility]
[address] [place] [address], * SCANNED - EYE EXAM (01/05/2019) Anatomical Region Laterality Modality Other Huber Grossman MD CHART REVIEW TABS Final Re sult * Hepatitis C Antibody (12/21/2018 10:57 AM EDT) Hepatitis C Ab Non-Reacti ve Non-Reacti ve 12/21/2018 7:17 PM EDT [facility] Blood Right upper arm structure / Unknown Venipuncture / Unknown 12/21/2018 10:57 AM EDT 12/21/2018 10:58 AM EDT us Huber Grossman MD LAB BLOOD ORDERABLES Final Re sult [facility]
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 09/08/2019 09/08/2019 Insurance MEDICARE A & B [facility] Advance Directives * CPR (Attempt to [...] pulse or is breathing): Full Care Teams Real Estate Associate Relationship Specialty Start Date End Date Dano Romero MD [address] [place] [address] PCP - General Internal Medicine 09/29/19
--- OUTSIDE RECORDS SUMMARY | 2025-04-18 12:12 | XMS_ITS | Encounter Summary ---
Author Organization Healthcare Address [address] [place] [address] Care Team Providers Care Financial Developer Name Role Phone Heladio Palm MD Primary Care Provider + [phone] Reason for Visit * Reason Comments Med Refill Encounter Details Date Type Department Care Team (Late st Contact Info) Description 05/05/2024 Refill [facility] [place] Sandro 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 [place] [address] Bryan Allen MD [address] [place] [address] 01/26/2026 11:00 AM EDT Office Visit [facility] [address] [facility] [address] Luis Olivares MD [address] 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
--- OUTSIDE RECORDS SUMMARY | 2025-04-18 12:12 | XMS_ITS | Encounter Summary ---
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
--- OUTSIDE RECORDS SUMMARY | 2025-04-18 12:12 | XMS_ITS | Encounter Summary ---
Author Organization Healthcare Address [address] [place] [address] Care Team Providers Care Facility Maintenance Supervisor Name Role Phone Heladio Palm MD Primary Care Provider + [phone] Encounter Details Date Type Department Care Team (Late st Contact Info) Description 04/14/2025 Telephone [facility] [place] [address] [place] [address] None, None [address] [place] [id number] Social History Tobacco Use Types Packs/Day Years [...] encounter Miscellaneous Notes * Telephone Encounter - Nola Sher - 04/17/2025 1:37 PM EDT Records received and I spoke to her and got her scheduled to see Dr. Allen next Thursday. * Telephone Encounter - Nola Sher - 04/17/2025 1:01 PM EDT The patient called me back and is no longer in the hospital. I told her I would request records andonce received I would call her back to get scheduled. I have requested records from [facility]. * Telephone Encounter - Nola Sher - 04/17/2025 12:27 PM EDT Left patient a voicemail telling her to call me when she gets out of the hospital and we can get her scheduled. I will get the most recent records as well when she calls me back. * Telephone Encounter - Tonia Jade - 04/14/2025 4:14 PM EDT Clinical Concern/Question Reason for Call: Please call patient to discuss about getting a watchman placed, currently inpatient at [facility]? Best contact number: [phone] (mobile) Optimal time of day to reach caller: ANYTIME Additional comments/information from caller: None Note: Please do not reply to this message. Follow-up communication and further actions as a result of this message need to be communicated with the patient directly, if the patient is not active on MyChart. If the patient is active on MyChart, they will receive notification of the communication/outcome via ExSafet. documented in this encounter Plan of Treatment Upcoming Encounters Date Type Department Care Team (Late st Contact Info) Description 04/24/2025 2:10 PM EDT Office Visit [facility] [place] [address] [facility] [place] [address] Bryan Allen MD [address] [place] [address] 01/26/2026 11:00 AM EDT Office Visit [facility] [address] [place] [address] Luis Olivares MD [address] [place] [address] documented as of this encounter [...] documented as of this encounter Care Teams Facility Maintenance Supervisor Relationship Specialty Start Date End Date Heladio Palm MD [address] [facility] [address] [place] [address] PCP - General Internal Medicine 05/02/22 documented as of this encounter
--- OUTSIDE RECORDS SUMMARY | 2025-04-18 12:12 | XMS_ITS | Encounter Summary ---
[facility] Organization [facility] Address [address] [place] [address] Care Team Providers Care Nuclear Weapons Mechanical Specialist Name Role Phone Dano Romero MD Primary Care Provider [phone] Reason for Visit * Reason Onset Date Comments Med Refill 11/16/2018 Encounter Details Date Type Department Care Team (Late st Contact Info) Description 11/16/2018 Refill [facility] MEDICINE [address] [phone] Huber Grossman MD Social History Tobacco Use [...] documented as of this encounter Care Teams Nuclear Weapons Mechanical Specialist Relationship Specialty Start Date End Date Dano Romero MD [address] [place] [address] PCP - General Internal Medicine 09/29/19 documented as of this encounter
--- OUTSIDE RECORDS SUMMARY | 2025-04-18 12:12 | XMS_ITS | Encounter Summary ---
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
--- OUTSIDE RECORDS SUMMARY | 2025-04-18 12:12 | XMS_ITS | Encounter Summary ---
[facility] Organization [facility] Address [address] [place] [address] Care Team Providers Care Computer Assembler Name Role Phone Dano Romero MD Primary Care Provider [phone] Encounter Details Date Type Department Care Team (Late st Contact Info) Description 02/02/2018 Telephone [facility] FAMILY MEDICINE [address] [place] [phone] Huber Grossman MD Social History Tobacco [...] documented as of this encounter Care Teams Computer Assembler Relationship Specialty Start Date End Date Dano Romero MD [address] [place], [place] [id number] PCP - General Internal Medicine 09/29/19 documented as of this encounter
--- OUTSIDE RECORDS SUMMARY | 2025-04-18 12:12 | XMS_ITS | Encounter Summary ---
[facility] Organization [facility] [address] [place] [address] Care Team Providers Care District Branch Manager Name Role Phone Dano Romero MD Primary Care Provider [phone] Encounter Details Date Type Department Care Team (Late st Contact Info) Description 08/01/2019 Telephone [facility] [address] [place] [phone] Huber Grossman MD Social History Tobacco [...] as of this encounter Care Teams District Branch Manager Relationship Specialty Start Date End Date Dano Romero MD [address] [place] [address] PCP - General Internal Medicine 09/29/19 documented as of this encounter
--- OUTSIDE RECORDS SUMMARY | 2025-04-18 12:12 | XMS_ITS | Encounter Summary ---
Author Organization Healthcare Address [address] [place] [address] Care Team Providers Care Regional Marketing Director Name Role Phone Heladio Palm MD Primary Care Provider + [phone] Encounter Details Date Type Department Care Team ([facility] Contact Info) Description 03/13/2025 Telephone [facility] Nephrology, Bone & Mineral Metabolism [address] [facility], [address] [place] [address] Alejandra Camacho MD [address] [place] [address] Social History Tobacco Use Types [...] optimal time of day to reach caller: [phone] Note: Please do not reply to this message. Follow-up communication and further actions as a result of this message need to be communicated with the patient directly, if the patient is not active onMyChart. If the patient is active on MyChart, they will receive notification of the communication/outcome via tidy. documented in this encounter Plan of Treatment Upcoming Encounters Date Type Department Care Team (Late st Contact Info) Description 04/24/2025 2:10 PM EDT Office Visit [facility] [place] [address] [facility] [place] [address] Bryan Allen MD [address] [place] [address] 01/26/2026 11:00 AM EDT Office Visit [facility] [address] [place] [address] Luis Olivares MD [address] [address] documented as of this encounter [...] documented as of this encounter Care Teams Regional Marketing Director Relationship Specialty Start Date End Date Heladio Palm MD [address] [place] [address] PCP - General Internal Medicine 05/02/22 documented as of this encounter
--- OUTSIDE RECORDS SUMMARY | 2025-04-18 12:12 | XMS_ITS | Encounter Summary ---
Author Organization Healthcare Address [address] [place] [address] Care Team Providers Care Director Hr Communications Name Role Phone Heladio Palm MD Primary Care Provider + [phone] Encounter Details Date Type Department Care Team (Late Contact Info) Description 11/03/2024 Orders Only External Location [address] [place] [address] Provider, External Social History Tobacco Use Types [...] Description 04/24/2025 2:10 PM EDT Office Visit [facility] [place] [address] [facility] [place] [address] Bryan Allen MD [address] [place] [address] 01/26/2026 11:00 AM EDT Office Visit [facility] [address] [place] [address] Luis Olivares MD [address] [place] [address] documented as of this encounter [...] as of this encounter Care Teams Director Hr Communications Relationship Specialty Start Date End Date Heladio Palm MD [address] [place] [address] PCP - General Internal Medicine 05/02/22 documented as of this encounter
[2025-04-18 13:17] LABS: Anion Gap 14.2 mEq/L (5-15); Blood Urea Nitrogen 28 mg/dl (7-17); Calcium 10.2 mg/dl (8.4-10.2); Carbon Dioxide 24 mmol/L (22.0-30.0); Chloride 106 mmol/L (98-107); Creatinine,Serum 1.00 mg/dl (0.52-1.04); Estimated Glomerular Filt Rate 54 ml/min (>60); GFR (African American) 65 ML/MIN (>60); Glucose 163 mg/dl (74-100); Magnesium 1.1 mg/dl (1.6-2.3); Potassium 4.2 mmoL/L (3.5-5.1); Sodium 140 mmol/L (136-145)
== END 2025-04-18 23:59 | disposition home or self-care (01) ==
PROVIDERS: PCP Internal Medicine Adolescent Medicine; Visit Provider Internal Medicine Adolescent Medicine
DX: N28.9 Disorder of kidney and ureter, unspecified (principal); E11.9 Type 2 diabetes mellitus without complications; E83.42 Hypomagnesemia
CPT/HCPCS: 36415; 80048; 83735

== ENCOUNTER 2025-04-28 12:52 | Outpatient (CLI) | payer MEDICARE, OTHER, SELFPAY ==
--- OUTSIDE RECORDS SUMMARY | 2019-05-11 19:56 | XMS_ITS | Encounter Summary ---
[facility] Address [address] [place] [address] Care Team Providers Care Maintenance And Utilities Supervisor Name Role Phone Huber Grossman MD Primary Care Provider Barbara valladares Reason for Referral * Diagnostic Medical (Routine) - Closed Specialty Diagnoses / Procedures Referred By Contac t Referred To Contact Sleep Medicine Diagnoses DELL (obstructive sleep apnea) Procedures Polysomnography 4 or More Parameters Luis Galvan MD Phone: tel: fax: [facility] [address] [address] Phone: tel: fax: Referral ID Status Reason Start Date Expiration Date Visits Re quested Visits Authorized [id number] Closed 12/20/2018 12/20/2019 1 1 Reason for Visit * Diagnostic Medical (Routine) - Closed Specialty Diagnoses / Procedures Referred By Contac t Referred To Contact Sleep Medicine Diagnoses DELL (obstructive sleep apnea) Procedures Polysomnography 4 or More Parameters Luis Galvan MD Phone: tel: fax: [facility] [address] [address] Phone: tel: fax: Referral ID Status Reason Start Date Expiration Date Visits Re quested Visits Authorized [id number] Closed 12/20/2018 12/20/2019 1 1 Encounter Details Date Type Department Care Team (Late st Contact Info) Description 05/11/2019 7:56 PM EDT Hospital Encounter [facility] [address] [place] [phone] Luis Galvan MD [address] [place] [address] DELL (No follow-up); DELL (obstructive sleep apnea) [...] e 06/15/2023 Family and Community Support Answer Tyrone e Recorded Help with Day-to-Day Activities Not [...] She underwent a home sleep study at [facility] a while ago which was apparently positive. [...] was noted to be present by the fire protection engineering technician in attendance. D) Oxygen saturation: Oxygen [...] documented as of this encounter Care Teams Maintenance And Utilities Supervisor Relationship Specialty Start Date End Date Huber Grossman MD PCP - General Family Medicine 02/08/18 09/28/19 documented as of this encounter
--- OUTSIDE RECORDS SUMMARY | 2025-03-28 10:30 | XMS_ITS ---
Author Organization [facility] Address [address] [place] [address] Care Team Providers Care Ensemble Member Name Role Phone Heladio Palm Primary Care Provider REASON FOR VISIT lab f/u Encounters Encounter Location Date Provider Diagnosis [facility] [address] [address] 03/28/2025 Heladio Palm Plan Of Treatment Next Appt Details Provider Name:Heladio Palm, 05/11/2025 09:30:00 AM, [address] [place] [address], [address], Provider Name:Heladio Palm, 05/25/2025 09:30:00 AM, [address] [place] [address], [phone], Progress Notes * Karo VELAZQUEZOB:[birth year] (75 yo F)Acc No.[id number]:03/28/2025 Progress Notes Patient: Juwan Mirtha RUST Provider: Haritha Palm MD :1950 A ge:75 Y S ex:Female Date:03/28/2025 Address:[address] [place] [address] [place], [id number] Subjective: * Chief Complaints: * 1 . Lab f/u. * 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: Objective: * Vitals: Assessment: Plan: * Treatment: * * Electronic signature of Jeffy Palm MD FAAP on 04/28/2025 at 12:54 PM EDT Sign off status: Pending * Provider: Haritha Palm MD Date: 03/28/2025 Generated for Maggy shine/Tila/Loni on: 0 04/28/2025 12:54 PM EDT
--- OUTSIDE RECORDS SUMMARY | 2025-03-29 05:15 | XMS_ITS ---
Author Organization [facility] Address [address] [facility] [address] [place] [address] Care Team Providers Care Die Sinking Machine Operator Name Role Phone Heladio Palm Primary Care Provider [phone] REASON FOR VISIT [facility] D/C 03/21/2025 Encounters Encounter Location Date Provider Diagnosis [facility] [address] [facility] [address] [place] [address] 03/29/2025 Heladio Palm Plan Of Treatment Next Appt Details Provider Name:Heladio Palm, 05/11/2025 09:30:00 AM, [address], [address], Provider Name:Heladio Palm, 05/25/2025 09:30:00 AM, [address] [place] [address], [phone], Progress Notes * Karo VELAZQUEZOB:[birth year] (75 yo F)Acc No.[id number]:03/29/2025 HOSP F/U Patient: Juwan Mirtha RUST Provider: Haritha Palm MD :1950 A ge:75 Y S ex:Female Date:03/29/2025 Address:[address] [place] [address] [place], [id number] Subjective: * Chief Complaints: * 1 . [facility] D/C 03/21/2025. * 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: Objective: * Vitals: Assessment: Plan: * Treatment: * * Electronic signature of Jeffy Palm MD FAAP on 04/28/2025 at 12:55 PM EDT Sign off status: Pending * Provider: Haritha Palm MD Date: 0 03/29/2025 Generated for Maggy shine/Tila/eTmariannesmitting on: 0 04/28/2025 12:55 PM EDT
--- OUTSIDE RECORDS SUMMARY | 2025-03-30 05:45 | XMS_ITS ---
Author Organization [facility] Address [address] [place] [address] Care Team Providers Care Fuel Cell Systems Engineer Name Role Phone Heladio Palm Primary Care [...] Drug Allergy Acti ve REASON FOR VISIT [facility] D/C 03/21/2025, lab f/u Medications Medication SIG [...] 03/30/2025 Encounters Encounter Location Date Provider Diagnosis [address] [address] 03/30/2025 Heladio Palm Dental abscess K04.7 ; [...] on: Provider Name:Heladio Palm, 05/11/2025 09:30:00 AM, [address] [place] [address], [address], Provider Name:Heladio Palm, 05/25/2025 09:30:00 AM, [address], [address], Progress Notes * Karo VELAZQUEZOB:[birth year] (75 yo F)Acc No.[id number]:03/30/2025 HOSP F/U Patient: Mirtha LOMAX Provider: Haritha Palm MD :1950 A ge:75 Y S ex:Female Date:03/30/2025 Address:[address] [place], [place] [address] [id number] Subjective: * Chief Complaints: * 1 . [...] levels. Was hospitalized as noted above at [facility] for a dental abscess that [...] Hospitalization/Major Diagno stic Procedure: R espiratory failure- [facility] then transferred to [facility] then to [facility] for rehab 08/2019, - left kidney- rupture- renal ablation 10/2019, [facility] - 03/19-. * Family History: F ather: [...] ibeyal: alive, HTN. Thomas maldonado: alive, son- [place]- CAD. 1 sister(s) - healthy. 3 son(s) [...] 03/30/2025 Generated for Maggy ng/Tila/eTransmitting on: 0 04/28/2025 12:55 PM EDT History and Physical Notes * HPI (History of Present Illness) Category Sub-Category Detail Notes Category Not es Intrim History Transition of care visit from hospital Date of admission to hospital:: 03/20/2025 Patient is here for hospital follow-up and also to review her A1c levels. Was hospitalized as noted above at [facility] for a dental abscess that [...]
--- OUTSIDE RECORDS SUMMARY | 2025-04-24 14:10 | XMS_ITS | Encounter Summary ---
Author Organization Healthcare Address [address] [place] [address] Care Team Providers Care Film Cleaner Name Role Phone Heladio Palm MD Primary Care Provider + [phone] Encounter Details Date Type Department Care Team (Late st Contact Info) Description 04/24/2025 2:10 PM EDT Office Visit [facility] [place] [address] [place] [address] Bryan Allen MD [address] [place] [address] Paroxysmal atrial fibrillation (CMS/HCC) (Primary Dx) Social History Tobacco Use Types Packs/Day Years Used Date Smoking Tobacco: Former Cigarettes 1 7 0 09/07/1992 - 09/07/1999 Passive Smoke Exposure: Past Smokeless Tobacco: Never Alcohol Use Standard Drinks/Week Comments Not Currently 0 (1 standard drink = 0.6 oz pur e alcohol) PHQ-2 Answer Date Recorded Patient Health Questionnaire-2 Score 0 04/24/2025 PHQ-9 Answer Date Recorded Patient Health Questionnaire-9 Score 0 04/24/2025 PHQ-2A Answer Date Recorded Patient Health Questionnaire-2 Score 4 06/12/2023 Comments No Sex and Gender Information Value Date Recorded Sex Assigned at Not on file Legal Sex Female 8:26 PM EDT Gender Identity Not on file Sexual Orientation Not on file documented as of this encounter Last Filed Vital Signs Vital Sign Reading Time Taken Comments Blood Pressure 121/76 04/24/2025 1:52 PM EDT Pulse 64 04/24/2025 1:52 PM EDT Temperature - - Respiratory Rate - - Oxygen Saturation 94% 04/24/2025 1:52 PM EDT Inhaled Oxygen Concentration - - Weight 105 kg (231 lb 14.8 oz) 04/24/2025 1:50 P M EDT Height 154.9 cm (5' 1 ) 04/24/2025 1:50 PM EDT Body Mass Index 43.82 04/24/2025 1:50 PM EDT documented in this encounter Functional Status * Over the past 2 weeks, how often have you been bothered by any of the following problems? Question Answer Date of Assessment Author Little interest or pleasure in doing things Not at all 04/24/2025 1:50 PM EDT Nola Sher Feeling down, depressed, or hopeless Not at all 04/24/2025 1:50 PM EDT Nola Sher Patient Health Questionnaire -2 Score 0 04/24/2025 1:50 PM EDT Nola Sher * Question Answer Date of Assessment Author Trouble falling or staying a sleep, or sleeping too much Not at all 04/24/2025 1:50 PM EDT Nola Sher Feeling tired or having gabby le energy Not at all 04/24/2025 1:50 PM EDT Nola Sher Poor appetite or overeating Not at all 04/24/2025 1: 50 PM EDT Nola Sher Feeling bad about yourself - or that you are a failure or have let yourself or your family down Not at all 04/24/2025 1:50 PM EDT Irina Sher Trouble concentrating on thi ngs, such as reading the newspaper or watching television Not at all 04/24/2025 1:50 PM EDT Nola Sher Moving or speaking so slowly that other people could have noticed? Or the opposite - being so fidgety or restless that you have been moving around a lot more than usual. Not at all 04/24/2025 1:50 PM EDT Nola Sher Thoughts that you would be b dandre off or hurting yourself in some way Not at all 04/24/2025 1:50 PM EDT Nola Sher Patient Health Questionnaire -9 Score 0 04/24/2025 1:50 PM EDT Nola Sher * If you checked off any problems on this questionnaire so far, Question Answer Date of Assessment Author How difficult have these problems made it for you to do your work, take care of things at home, or get along with other people? Not difficult at all 04/24/2025 1:50 PM EDT Nola Sher documented as of this encounter Miscellaneous Notes * Progress Notes - Svetlana Olguin PA - 04/24/2025 2:10 PM EDT Images from the original note were not included. Structural Heart Consult Note Mirtha Barrios is a 75 y.o. female who presents today for consultation with Dr. Allen in regard to watchman. Patient's medical history is significant for PAF, HTN, DM and CAD s/p LAD PCI 2021.Patient has a history of renal hemorrhage with h/o RP bleed. Patient was on Xarelto at the time of her bleed and has not been on anticoagulation since that time. She was recently admitted to outside hospital for A fib/flutter. Her medications were adjusted, however she remains off of anticoagulation. Review of symptoms 14 Point ROS reviewed and is otherwise negative except as per HPI. The following portions of the chart were reviewed this encounter and updated as appropriate: Tobacco Allergies Meds Problems Med Hx Surg Hx Fam Hx Medications Current Medications[1] Physical Exam Physical Exam Vitals and nursing note reviewed. Constitutional: Appearance: Normal appearance. HENT: Head: Normocephalic and atraumatic. Nose: Nose normal. Mouth/Throat: Mouth: Mucous membranes are moist. Eyes: Conjunctiva/sclera: Conjunctivae normal. Cardiovascular: Rate and Rhythm: Normal rate and regular rhythm. Pulses: Normal pulses. Heart sounds: Normal heart sounds, S1 normal and S2 normal. No murmur heard. Pulmonary: Effort: Pulmonary effort is normal. Breath sounds: Normal breath sounds. Abdominal: General: Abdomen is flat. Palpations: Abdomen is soft. Musculoskeletal: General: Normal range of motion. Cervical back: Neck supple. Skin: General: Skin is warm and dry. Neurological: General: No focal deficit present. Mental Status: She is alert and oriented to person, place, and time. Psychiatric: Attention and Perception: Attention normal. Mood and Affect: Mood normal. Behavior: Behavior normal. Visit Vitals BP 121/76 Pulse 64 Ht 1.549 m (5' 1 ) Wt 105 kg (231 lb 14.8 oz) SpO2 94% BMI 43.82 kg/m?? Imaging No echocardiogram results found for the past 12 months Labs Lab Results Component Value Date/Time WBC 12.93 (H) 11/23/2023 1553 RBC 4.40 11/23/2023 1553 HGB 13.7 11/23/2023 1553 HCT 41.7 11/23/2023 1553 Lab Results Component Value Date/Time BUN 32 (H) 02/08/2024 1532 NA 139 02/08/2024 1532 K 4.1 02/08/2024 1532 CL 101 02/08/2024 1532 Lab Results Component Value Date/Time AST 14 05/06/2023 1500 ALT 19 05/06/2023 1500 ALKPHOS 71 05/06/2023 1500 Lab Results Component Value Date/Time CHOL 190 01/15/2017 0749 HDL 40 01/15/2017 0749 Lab Results Component Value Date/Time HGBA1C 6.8 (H) 11/23/2019 1617 Lab Results Component Value Date/Time TSH 3.23 05/06/2023 1500 FREET4 1.0 01/20/2017 1023 Assessment and Plan #PAF --CHADSVASC 4 --H/o RP bleed on anticoagulation --Watchman procedure discussed at length, patient agreeable to proceed --Plan for DAPT post-procedure --IV contrast allergy meds sent to pharmacy --Continue other medical therapy #CAD --H/o LAD PCI --Continue current therapy Proceed with watchman. I spent 43 minutes performing the following components of the encounter (on the day of the encounter): reviewing History, examining the patient, reviewing imaging and/or labs, counseling the patient and family/caregiver, communicating with other health personal care aid, and entering clinical information in the EHR. Greater than 50% of the time spent on the encounter was face to face providing direct patient care, counseling for the patient/caregiver, and care coordination. Svetlana Olguin PA-C Structural [facility]AN[facility] [1] Current Outpatient Medications Medication Sig Dispense Refill acetaminophen (Tylenol 8 Hour) 650 MG ER tablet Take 1 tablet (650 mg) by mouth every 8 (eight) hours if needed for mild pain. Do not crush, chew, or split. atorvastatin (Lipitor) 80 MG tablet TAKE 1 TABLET BY MOUTH 1 TIME EACH DAY. (Patient taking differently: Take 1 tablet by mouth daily.) 90 tablet 3 biotin 1000 MCG tablet 1 (one) time each day at the same time. carvedilol (Coreg) 25 MG tablet TAKE 1 TABLET BY MOUTH TWICE A DAY FOR 30 DAYS (Patient taking differently: Take 0.5 tablets by mouth 2 times a day with meals.) cholecalciferol (Vitamin D3) 25 MCG (1000 UT) tablet Take 1 tablet (1,000 Units) by mouth 1 (one) time each day. clopidogrel (Plavix) 75 MG tablet Take 1 tablet (75 mg) by mouth 1 (one) time each day. dapagliflozin (Farxiga) 10 MG tablet Take 1 tablet (10 mg) by mouth 1 (one) time each day. dilTIAZem CD (Cardizem CD) 240 MG 24 hr capsule Take 1 capsule by mouth nightly. furosemide (Lasix) 40 MG tablet Take 1 tablet by mouth daily. levothyroxine (Synthroid, Levoxyl) 100 MCG tablet Take 1 tablet (100 mcg) by mouth 1 (one) time each day. magnesium oxide (Mag-Ox) 400 (240 Mg) MG tablet Take 1 tablet (400 mg) by mouth 1 (one) time each day. venlafaxine (Effoxor) 100 MG tablet Take 1 tablet (100 mg) by mouth 1 (one) time each day. No current facility-administered medications for this visit. documented in this encounter Plan of Treatment Upcoming Encounters Date Type Department Care Team (Latest Contact Info) Description 05/30/2025 9:15 AM EDT Hospital Encounter Cardiac Retail Property Manager [address] [place] [address] Bryan Allen MD [address] [place] [address] Paroxysmal atrial fibrillation (CMS/HCC) 05/30/2025 9:15 AM EDT - 05/30/2025 10:55 AM EDT Surgery Cardiac Retail Property Manager [address] [place] [address] Bryan Allen MD [address] [place] [address] Left atrial appendage closure (transvenous) [40751 (CPT )] 06/05/2025 4:00 PM EDT Office Visit [facility] [place] Nephrology, Bone & Mineral Metabolism [address], [address] [place] [address] 01/26/2026 11:00 AM EDT Office Visit [facility] [address] [facility] [place] [address] Luis Olivares MD [address] [facility] [address] [place] [address] documented as of this encounter Visit Diagnoses Diagnosis Paroxysmal atrial fibrillation (CMS/HCC)- Primary Atrial fibrillation Atrial fibrillation (CMS/HCC)- Primary Atrial fibrillation Paroxysmal atrial fibrillation (CMS/HCC) Atrial fibrillation Paroxysmal atrial fibrillation (CMS/HCC) Atrial fibrillation documented in this encounter Additional Health Concerns Assessment Noted Time PHQ-9 Depression Total Score: 0 04/24/20 25 1:50 PM EDT A fall risk assessment has been complete d for the patient 04/24/2025 1:50 PM EDT A Body Mass Index follow-up plan has been documented for the patient 04/24/2025 3:12 PM EDT documented as of this encounter Care Teams Film Cleaner Relationship Specialty Start Date End Date Heladio Palm MD [address] [place] [address] PCP - General Internal Medicine 05/02/22 documented as of this encounter
--- OUTSIDE RECORDS SUMMARY | 2025-04-28 12:54 | XMS_ITS | Encounter Summary ---
Author Organization Healthcare Address [address] [place] [id number] Care Team Providers Care Manager Performance Name Role Phone Heladio Palm MD Primary Care Provider + [phone] Encounter Details Date Type Department Care Team ([facility] Contact Info) Description 02/16/2025 Telephone [facility], [facility] Mineral Metabolism [address] [facility], [address] [place] [address] Daxa Martin MBBS [address] [place], [place] [id number] Social History Tobacco Use Types Packs/Day Years [...] L/m to r/s * Telephone Encounter - Karina Duvall - 02/20/2025 12:28 PM EDT Patient Phone Message Reason for Call: PT called back to schedule an appt but [facility] Best contact number and optimal time of day to reach caller: [phone] Note: Please do not reply to this message. Follow-up communication and further actions as a result of this message need to be communicated with the patient directly, if the patient is not active onMyChart. If the patient is active on MyChart, they will receive notification of the communication/outcome via Ventivat. * Telephone Encounter - Whitney Dubon - 02/17/2025 9:11 AM EDT L/m to reschedule * Telephone Encounter - Rosie Dewitt - 02/16/2025 9:25 AM EDT Clinical Concern/Question Reason for Call: pt calling to request call back to reschedule due to migraine she has today, sending to clinic for availability Best contact number: Other: [phone] Optimal time of day to reach caller: ANYTIME Additional comments/information from caller: None Note: Please do not reply to this message. Follow-up communication and further actions as a result of this message need to be communicated with the patient directly, if the patient is not active onMyChart. If the patient is active on MyChart, they will receive notification of the communication/outcome via Ventivat. documented in this encounter Plan of Treatment Upcoming Encounters Date Type Department Care Team (Latest Contact Info) Description 05/30/2025 9:15 AM EDT Hospital Encounter Cardiac Director Pediatric [address] [place] [address] Bryan Allen MD [address] [place] [address] Paroxysmal atrial fibrillation (CMS/HCC) 05/30/2025 9:15 AM EDT - 05/30/2025 10:55 AM EDT Surgery Cardiac Director Pediatric [address] [place] [address] Bryan Allen MD [address] [place] [address] Left atrial appendage closure (transvenous) [00674 (CPT )] 06/05/2025 4:00 PM EDT Office Visit [facility] Nephrology, Bone & Mineral Metabolism [address], [address] [place] [address] 01/26/2026 11:00 AM EDT Office Visit [facility] [address] [place] [address] Luis Olivares MD [address] [address] documented as of this encounter [...] as of this encounter Care Teams Manager Performance Relationship Specialty Start Date End Date Heladio Palm MD [address] [place] [address] PCP - General Internal Medicine 05/02/22 documented as of this encounter
--- OUTSIDE RECORDS SUMMARY | 2025-04-28 12:54 | XMS_ITS | Encounter Summary ---
Author Organization Healthcare Address [address] [place] [address] Care Team Providers Care Child Life Specialist Name Role Phone Heladio Palm MD Primary Care Provider [phone] Reason for Visit * Reason Onset Date Comments HCN Clinical Concern/Question 02/27/2025 Encounter Details Date Type Department Care Team (Late st Contact Info) Description 02/27/2025 Telephone [facility], Bone [facility] Mineral Metabolism [address], [address] [place] [address] Alejandra Camacho MD [address] [place] [address] HCN Clinical Concern/Question Social History [...] the initial request. Best contact number: Other: [phone] Optimal time of day to reach caller: [...] will receive notification of the communication/outcome via Handshake. * Telephone Encounter - Whitney Doan - [...] be sent again. Best contact number: Other: [phone] Optimal time of day to reach caller: [...] dx codeand to be faxed again to [phone]. Best contact number: Other: [phone] Optimal time of day to reach caller: ANYTIME Additional comments/information from caller: None Note: Please do not reply to this message. Follow-up communication and further actions as a result of this message need to be communicated with the patient directly, if the patient is not active onMyChart. If the patient is active on MyChart, they will receive notification of the communication/outcome via Trendienthart. documented in this encounter Plan of Treatment Upcoming Encounters Date Type Department Care Team (Latest Contact Info) Description 05/30/2025 9:15 AM EDT Hospital Encounter Cardiac Fastener Technologist [address] [place] [address] Bryan Allen MD [address] [place] [address] Paroxysmal atrial fibrillation (CMS/HCC) 05/30/2025 9:15 AM EDT - 05/30/2025 10:55 AM EDT Surgery Cardiac Fastener Technologist [address] [place] [address] Bryan Allen MD [address] [place] [address] Left atrial appendage closure (transvenous) [86614 (CPT )] 06/05/2025 4:00 PM EDT Office Visit [facility] Nephrology, Bone & Mineral Metabolism [address] [facility], [address] [place] [address] 01/26/2026 11:00 AM EDT Office Visit [facility] [address] [place] [address] Luis Olivares MD [address] [address] Scheduled Orders Name Type Priority Associated Diagnoses Orde r Schedule PTH Intact Total Lab Routine Hyperparathyroidism, unspecified (CMS/HCC) Expected: 02/27/2025 (Approximate), Expires: 08/29/2026 documented as of this encounter Visit Diagnoses Diagnosis Renal osteodystrophy- Primary Hyperparathyroidism, unspecified (CMS/HCC) Hyperparathyroidism, unspecified Paroxysmal atrial fibrillation (CMS/HCC) Atrial fibrillation Paroxysmal [...] documented as of this encounter Care Teams Child Life Specialist Relationship Specialty Start Date End Date Heladio Palm MD [address] [place] [address] PCP - General Internal Medicine 05/02/22 documented as of this encounter
--- OUTSIDE RECORDS SUMMARY | 2025-04-28 12:54 | XMS_ITS | Encounter Summary ---
Author Organization Healthcare Address [address] [place] [address] Care Team Providers Care Operations Forester Name Role Phone Heladio Palm MD Primary Care Provider + [phone] Encounter Details Date Type Department Care Team (Late st Contact Info) Description 03/02/2025 Telephone [facility] [address] [place] [address] Luis Olivares MD [address] [address] Social History Tobacco Use Types [...] date Send To: Mail Best contact number: [phone] (home) Optimal time of day to reach caller: ANYTIME Additional comments/information from caller: None Note: Please do not reply to this message. Follow-up communication and further actions as a result of this message need to be communicated with the patient directly, if the patient is not active onMyChart. If the patient is active on MyChart, they will receive notification of the communication/outcome via Your Office Agent. documented in this encounter Plan of Treatment Upcoming Encounters Date Type Department Care Team (Latest Contact Info) Description 05/30/2025 9:15 AM EDT Hospital Encounter Cardiac Associate Attorney [address] [place] [address] Bryan Allen MD [address] [place] [address] Paroxysmal atrial fibrillation (CMS/HCC) 05/30/2025 9:15 AM EDT - 05/30/2025 10:55 AM EDT Surgery Cardiac Associate Attorney [address] [place] [address] Bryan Allen MD [address] [place] [address] Left atrial appendage closure (transvenous) [72905 (CPT )] 06/05/2025 4:00 PM EDT Office Visit [facility] Nephrology, Bone & Mineral Metabolism [address] [facility], [address] [place] [address] 01/26/2026 11:00 AM EDT Office Visit [facility] [address] [facility] [place] [address] Luis Olivares MD [address] [facility] [address] [place] [address] documented as of this encounter Visit [...] documented as of this encounter Care Teams Operations Forester Relationship Specialty Start Date End Date Heladio Palm MD [address] [place] [address] PCP - General Internal Medicine 05/02/22 documented as of this encounter
--- OUTSIDE RECORDS SUMMARY | 2025-04-28 12:54 | XMS_ITS | Encounter Summary ---
Author Organization Healthcare Address [address] [place] [address] Care Team Providers Care Housing Project Manager Name Role Phone Heladio Palm MD Primary Care Provider + [phone] Encounter Details Date Type Department Care Team ([facility] Contact Info) Description 02/27/2025 Orders Only [facility] Nephrology, Bone & Mineral Metabolism [address], [address] [place] [address] Whitney Doan Hypercalcemia (Primary Dx) [...] 05/30/2025 9:15 AM EDT Hospital Encounter Cardiac Netbackup Admin [address] [place] [address] Bryan Allen MD [address] [place] [address] Paroxysmal atrial fibrillation (CMS/HCC) 05/30/2025 9:15 AM EDT - 05/30/2025 10:55 AM EDT Surgery Cardiac Netbackup Admin [address] [place] [address] Bryan Allen MD [address] [place] [address] Left atrial appendage closure (transvenous) [59170 (CPT )] 06/05/2025 4:00 PM EDT Office Visit [facility] Nephrology, Bone & Mineral Metabolism [address] [facility] [place] [address] 01/26/2026 11:00 AM EDT Office Visit [facility] [address] [place] [address] Luis Olivares MD [address] [address] Scheduled Orders Name Type Priority Associated Diagnoses Orde r Schedule PTH Intact Total Lab Routine Hypercalcemia Expected: 03/02/2025 (Approximate), Expires: 09/01/2026 documented as of this encounter Visit Diagnoses Diagnosis Hypercalcemia- Primary Paroxysmal atrial fibrillation (CMS/HCC) Atrial fibrillation Paroxysmal [...] documented as of this encounter Care Teams Housing Project Manager Relationship Specialty Start Date End Date Heladio Palm MD [address] [place] [address] PCP - General Internal Medicine 05/02/22 documented as of this encounter
--- OUTSIDE RECORDS SUMMARY | 2025-04-28 12:55 | XMS_ITS | Patient Health Record ---
Author Organization [facility] Address [address] [place] [address] Care Team Providers Care Senior Patrol Agent Name Role Phone Heladio Palm Primary [...] S- Susceptible I- Intermediate * Not on [facility] Vance Count 50,000 - 60,000 RX CA: R- Resistant S- Susceptible I- Intermediate * Not on [facility] RX CA: R- Resistant S- Susceptible I- Intermediate * Not on [facility] RX CA: R- Resistant S- Susceptible I- Intermediate * Not on [facility] Escherichia coli: REACTION RX CA: R- Resistant S- Susceptible I- Intermediate * Not on [facility] Amikacin <=8 S RX CA: R- Resistant S- Susceptible I- Intermediate * Not on [facility] Ampicillin >16 R RX CA: R- Resistant S- Susceptible I- Intermediate * Not on [facility] Aztreonam <=2 S RX CA: R- Resistant S- Susceptible I- Intermediate * Not on [facility] Cefepime <=1 S RX CA: R- Resistant S- Susceptible I- Intermediate * Not on [facility] Ceftazidime <=2 S RX CA: R- Resistant S- Susceptible I- Intermediate * Not on [facility] Ceftriaxone 4 R RX CA: R- Resistant S- Susceptible I- Intermediate * Not on [facility] Ciprofloxacin <=0.25 S RX CA: R- Resistant S- Susceptible I- Intermediate * Not on [facility] Ertapenem <=0.25 S RX CA: R- Resistant S- Susceptible I- Intermediate * Not on [facility] Gentamicin <=2 S RX CA: R- Resistant S- Susceptible I- Intermediate * Not on [facility] Levofloxacin <=0.5 S RX CA: R- Resistant S- Susceptible I- Intermediate * Not on [facility] Meropenem <=0.5 S RX CA: R- Resistant S- Susceptible I- Intermediate * Not on [facility] Nitrofurantoin <=16 S RX CA: R- Resistant S- Susceptible I- Intermediate * Not on [facility] Tetracycline <=2 S RX CA: R- Resistant S- Susceptible I- Intermediate * [facility] Tob[facility]2 S RX CA: R- Resistant S- Susceptible I- Intermediate * Not on [facility] Trimethoprim/Sulfame th oxazole > R RX CA: R- Resistant S- Susceptible I- Intermediate * Not on [facility] Piperacillin/Tazobac ta m <=2/4 S RX CA: R- Resistant S- Susceptible I- Intermediate * Not on [facility] RX CA: R- Resistant S- Susceptible I- Intermediate * Not on [facility] M-Renal Function Panel Reviewed date:02/04/2025 10:26:09 [...] date:12/06/2024 12:21:22 PM Interpretation: Performing Lab: Notes/Report: THYROID PANEL WITH TSH (7444 ) Reviewed date:03/14/2025 04:29:00 PM Interpretation: Performing Lab:[facility] [employer]e1355 ipadio, [place] CireAP[address] Brady Brown Notes/Report: NON-FASTING; NON-FASTING; NON-FASTING; NON-FASTING; NON-FAST FASTING:YES FASTING: YES T3 UPTAKE 31 22-35 % T4 (THYROXINE), TOTAL 7.8 5.1-11.9 mcg/dL FREE T4 INDEX (T7) 2.4 1.4-3.8 TSH 1.65 0.40-4.50 mIU/L LIPID PANEL, STANDARD (7600) Reviewed date:03/14/2025 04:29:00 PM Interpretation: Performing Lab:[facility] [employer] [id number] divorce360tel Te[employer] The People, [facility] CenterWycvXW[address] Brady Brown Notes/Report: NON-FASTING; NON-FASTING; NON-FASTING; NON-FASTING; [...] LDL-C. Aryan BROUSSARD et al. CHRISTINA. 2013;310(19): 3553-8028 (http://education.[employer].BetBox/faq/FAQ 164) CHOL/HDLC RATIO 4.2 <5.0 (calc) NON HDL CHOLESTEROL 123 <130 mg/dL (calc) For patients with diabetes plus 1 major ASCVD risk factor, treating to a non-HDL-C goal of <100 mg/dL (LDL-C of <70 mg/dL) is considered a therapeutic option. COMPREHENSIVE METABOLIC PANE Soraida (92930) Reviewed date:03/14/2025 04:29:00 PM Interpretation: Performing Lab:[facility], [employer] [id number] divorce[address]tel Teach The Peoplevd, VasonomicsSwdbJD[address] Brady Brown Notes/Report: NON-FASTING; NON-FASTING; NON-FASTING; NON-FASTING; [...] Reviewed date:03/14/2025 04:29:01 PM Interpretation: Performing Lab:[facility], [employer] [address], [employer]CehvRX[address] Brady Brown Notes/Report: NON-FASTING; NON-FASTING; NON-FASTING; NON-FASTING; [...] MPV 9.5 7.5-12.5 fL ABSOLUTE NEUTROPHILS 6720 2007-3525 cells/uL ABSOLUTE LYMPHOCYTES 2100 850-3900 cells/uL ABSOLUTE MONOCYTES 660 200-950 cells/uL ABSOLUTE EOSINOPHILS 460 15-500 cells/uL ABSOLUTE BASOPHILS 60 0-200 cells/uL NEUTROPHILS 67.2 LYMPHOCYTES 21.0 MONOCYTES 6.6 EOSINOPHILS 4.6 BASOPHILS 0.6 HEMOGLOBIN A1c (496) Reviewed date:03/14/2025 04:29:01 PM Interpretation: Performing Lab:CB, [facility] Guyz5822 [facility], [facility] HospitalXuezKI[address] Brady Brown Notes/Report: NON-FASTING; NON-FASTING; NON-FASTING; NON-FASTING; [...] for children. VITAMIN B12/FOLATE, SERUM PA REGIS (2766) Reviewed date:03/14/2025 04:29:01 PM Interpretation: Performing Lab:[facility] [employer] [id number] [place] [employer], VasonomicsXlkeFP[address] Brady Brown Notes/Report: NON-FASTING; NON-FASTING; NON-FASTING; NON-FASTING; NON-FAST FASTING:YES FASTING: YES VITAMIN B12 807 220-6219 pg/mL Please Note: Although the reference range [...] Reviewed date:03/14/2025 04:29:01 PM Interpretation: Performing Lab:[facility] [employer]e1355 divorce360tel [place] [employer], VasonomicsPxvlCO[address] Brady Brown Notes/Report: NON-FASTING; NON-FASTING; NON-FASTING; NON-FASTING; [...] D, (D2,D3), LC/MS/MS is recommended: order code [id number] (patients >2yrs). See Note 1 Note 1 For additional information, please refer to http://education.[employer].BetBox/faq/FAQ1 99 (This link is being provided for informational/ educational purposes only.) PTH, INTACT WITHOUT CALCIUM (42951) Reviewed date:03/14/2025 04:29:01 PM Interpretation: Performing Lab:[facility] [employer] Vvgj1059 divorce360tel BlH[employer], VasonomicsSmcwQW[address] Brady Brown Notes/Report: NON-FASTING PARATHYROID HORMONE, INTACT 54 16-77 pg/mL Interpretive Guide Intact PTH Calcium ------- Normal Parathyroid Normal Normal Hypoparathyroidism Low or Low Normal Low Hyperparathyroidism Primary Normal or High High Secondary High Normal or Low Tertiary High High Non-Parathyroid Hypercalcemia Low or Low Normal High CAROTID DUPLEX Reviewed date:12/06/2024 12:21:22 PM Interpretation: Performing Lab: Notes/Report: M-1,25-Dihydroxy,Vitamin D b y MS Reviewed date:02/07/2025 07:26:01 PM Interpretation: Performing Lab: Notes/Report: [id number] 26 . pg/mL Reference Range: Adults: 21 - 65 [id number] <10 . pg/mL This test was developed and its performance characteristics determined by [facility]. It has not been cleared or approved by the Food and Drug Administration. [id number] 24 . pg/mL This test was developed and its performance characteristics determined by [facility]. It has not been cleared or approved by the Food and Drug Administration. Performed at: [facility] [address] [place] [id number] Manugrapher: Jerson Cameron MD, Phone: [phone] Reason For Referral Reason Needs MRI of brain, no contrast and carotid Doppler at [facility] for morning headaches with visual disturbance Diagnosis 1 Nonintractable episo dic headache, unspecified headache type (R51.9) Referral Organization [facility] RUPA MAR Referring Provider First Name Heladio Referring Provider Last Name Arpita Referring Provider Speciality [facility] Notes Carmen Harvey 07/2025 04:02:30 PM > faxed to [facility] and they will call her Referral Priority Routine Reason Labral tear, loose b silas in shoulder joint and multiple rotator cuff tears, see Dr. Ace Royal at Diagnosis 1 Traumatic tear of ri ght rotator cuff, unspecified tear extent, initial encounter (S46.011A) Referral Organization [facility] PED MAR Referring Provider First Name Heladio Referring Provider Last Name Arpita [facility] Notes Carmen Harvey 08/2025 02:53:47 PM > faxed and they will call her to schedule Referral Priority Routine Reason DExa scan at [facility] Diagnosis 1 Chronic kidney disea se, stage 3b (N18.32) Referral Organization [facility] MAR Referring Provider First Name Heladio Referring Provider Last Name Arpita Referring Provider Speciality Internal M edicine Referred Organization [facility] Referred Address [address] [place],[address],[place] Referred Provider Specialty Diagnostic R adiology Referral [...] Status Risk Notes Problem Diabetic renal disease (768999937) Type 2 diabetes mellitus with diabetic chronic kidney disease (E11.22) Active confirmed Problem Paroxysmal atrial fibrillation (324475071) Paroxysmal atrial fibrillation (I48.0) Active confirmed Problem Hypothyroid (63686062) Hypothyroid (E03.9) Active confirmed Problem Atrial fibrillation (disorder) (17347737) Afib (I48.91) Active confirmed Problem Morbid obesity (205744971) Morbid obesity (E66.01) Active confirmed Problem Neuropathy (425255699) Neuropathy (G62.9) Active confirmed Problem Essential hypertension (85028991) Essential hypertension (I10) Active confirmed Problem Type 2 diabetes mellitus (39537727) Type 2 diabetes mellitus (E11.9) Active confirmed Problem Atherosclerosis of coronary artery without angina pectoris (792995992910072) Atherosclerosis of [place] shoshone coronary artery of [place] shoshone heart without angina pectoris (I25.10) Active confirmed Problem Obstructive sleep apnea (84878139) Obstructive sleep apnea (G47.33) Active confirmed Problem Uncomplicated moderate persistent asthma (941988933) Moderate persistent asthma without complication (J45.40) Active confirmed Problem Acute depression (534977145) Acute depression (F32.9) Active confirmed Problem Chronic renal failure syndrome (52678880) Chronic kidney disease, unspecified CKD stage (N18.9) Active confirmed Problem Chronic hypercapnic respiratory failure (783933830) Hypercapnic respiratory failure, chronic (J96.12) Active confirmed Problem Chronic kidney disease stage 3B (disorder) (943306708) Chronic kidney disease, stage 3b (N18.32) Active confirmed Vital Signs Heart Rate 74 /min 03/30/2025 Temperature 98.6 degrees Fahrenheit 03/30/2025 Blood pressure diastolic 80 mm Hg 03/30/2025 Height 5 ft 3 in in 03/30/2025 Blood pressure systolic 124 mm Hg 03/30/2025 Weight 234 lbs 03/30/2025 BMI 41.45 kg/m2 03/30/2025 Encounters Encounter Location Date Provider Diagnosis [facility] [address] [place] [address] 12/10/2024 Provider Migration [address] [address] 07/19/2024 Heladio Palm Type 2 diabetes mellitus with diabetic chronic kidney disease E11.22 ; Chronic kidney disease, stage 3b N18.32 ; Immunization(s) administered Z23 ; Paroxysmal atrial fibrillation I48.0 and Essential hypertension I10 [address] [address] 11/15/2024 Heladio Palm Nonintractable episo dic headache, unspecified headache type R51.9 and Traumatic tear of right rotator cuff, unspecified tear extent, initial encounter S46.011A [address] [address] 03/02/2025 Heladio Palm Chronic kidney disea se, stage 3b N18.32 ; Type 2 diabetes mellitus with diabetic chronic kidney disease E11.22 ; Paroxysmal atrial fibrillation I48.0 ; Atherosclerosis of [place]osh[place] coronary artery of [place] shosh[place] heart without angina pectoris I25.10 ; Hypothyroid E03.9 ; Obstructive sleep apnea G47.33 ; Encounter for immunization Z23 and Routine medical exam Z00.00 [facility] [address] [place] [address] 03/30/2025 Heladio Besson Dental abscess K04.7 ; Type 2 diabetes mellitus with diabetic chronic kidney disease E11.22 and Hospital discharge follow-up Z09 [facility] [address] [place] [address] 04/19/2025 Heladio Besson [facility] [address] [place] [address] 05/06/2024 Heladio Besson [facility] [address] [place] [address] 05/30/2024 Heladio Besson [facility] [address] [place] [address] 09/22/2024 Heladio Besson Type 2 diabetes mellitus with diabetic chronic kidney disease E11.22 [facility] [address] [place] [address] 10/04/2024 Heladio Besson [facility] [address] [place] [address] 12/09/2024 Heladio Besson [facility] [address] [place] [address] 02/08/2025 Heladio Besson [facility] [address] [place] [address] 03/20/2025 Heladio Besson [facility] [address] [place] [address] 03/21/2025 Heladio Besson [facility] [address] [place] [address] 03/22/2025 Heladio Besson [facility] [address] [place] [address] 03/22/2025 Heladio Besson [facility] [address] [place] [address] 03/22/2025 Heladio Besson [facility] [address] [facility] [address] [place] [address] 04/12/2025 Heladio Palm Assessments Encounter Date Diagnosis (ICD Code) Assessment Notes Treatment Notes Treatment Clinical Notes Section Notes 07/19/2024 Chronic kidney disease, stage 3b (ICD-10 - N18.32) Continues to follow with nephrology and will see them next month. Continue Farxiwv. 09/22/2024 Type 2 diabetes mellitus with diabetic [...] E11.22) Check A1c. On appropriate medications z 07/19/2024 Type 2 diabetes mellitus with diabetic [...] done in the hospital. Personally reconciled medication. 07/19/2024 Immunization(s) administered (ICD-10 - Z23) 03/02/2025 Paroxysmal atrial fibrillation (ICD-10 - I48.0) No evidence of recurrence. z 03/02/2025 Atherosclerosis of yomb[place] shoshone coronary artery of yomb[place] shoshone heart without angina pectoris (ICD-10 - I25.10) [...] PANEL, STANDARD (7600) 11/18/2023 COMPREHENSIVE METABOLIC PANEL (56500) BASIC METABOLIC PANEL (26076) 01/29/2024 CBC (INCLUDES DIFF/PLT) (6399) HEMOGLOBIN A1c (496) 11/18/2023 TSH (899) 11/18/2023 Next Appt Details Provider Name:Heladio Joyce Arpita, 05/11/2025 09:30:00 AM, [address], [address], Provider Name:Heladio Joyce Arpita, 05/25/2025 09:30:00 AM, [address], [address], Insurance Providers Payer Name Payer Address Payer Phone Subscriber Number Group Number Insured Name Patient Relationship to Insured Coverage Start Date Coverage End Date [place] [address] [place] [address] [id number] Mirtha Hernadez Self - patient is the insured [employer] [place] [address] [address] [place] [phone] [id number] Mirtha Hernadez Self - patient is the [...] stent Hospitalization History Reason Date(Month/Year) Respiratory failure- [facility] the n transferred to - then to [facility] for rehab 08/2019 [facility] - 03/19- [place]- left kidney- rupture- renal ablation 10/2019
--- OUTSIDE RECORDS SUMMARY | 2025-04-28 12:55 | XMS_ITS | Encounter Summary ---
Author Organization Healthcare Address [address] [id number] Care Team Providers Care Digester Hand Name Role Phone Heladio Palm MD Primary Care Provider + [phone] Encounter Details Date Type Department Care Team [...] 05/30/2025 9:15 AM EDT Hospital Encounter Cardiac Department Store General Manager [address] [place] [address] Bryan Allen MD [address] [place] [address] Paroxysmal atrial fibrillation (CMS/HCC) 05/30/2025 9:15 AM EDT - 05/30/2025 10:55 AM EDT Surgery Cardiac Department Store General Manager [address] [place] [address] Bryan Allen MD [address] [place] [address] Left atrial appendage closure (transvenous) [24749 (CPT )] 06/05/2025 4:00 PM EDT Office Visit [facility] Nephrology, Bone & Mineral Metabolism [address] [facility], [address] [place] [address] 01/26/2026 11:00 AM EDT Office Visit [facility] Eye Care [address] [facility] [place] [address] Luis Olivares MD [address] [place] [address] documented as of this encounter [...] documented as of this encounter Care Teams Digester Hand Relationship Specialty Start Date End Date Heladio Palm MD [address] [place] [address] PCP - General Internal Medicine 05/02/22 documented as of this encounter
--- OUTSIDE RECORDS SUMMARY | 2025-04-28 12:55 | XMS_ITS | Encounter Summary ---
Author Organization Healthcare Address [address] [place] [address] Care Team Providers Care Machine Load Clerk Name Role Phone Heladio Palm MD Primary Care Provider + [phone] Reason for Visit * Reason Comments Med Refill Encounter Details Date Type Department Care Team (Late st Contact Info) Description 05/05/2024 Refill [facility] [place] [address] [place] [address] Willow Fry PA [address] [place] [address] Coronary artery disease involving [place] coronary artery of [place] heart without angina pectoris Social History Tobacco [...] 05/30/2025 9:15 AM EDT Hospital Encounter Cardiac Machinist General [address] [place] [address] Bryan Allen MD [address] [place] [address] Paroxysmal atrial fibrillation (CMS/HCC) 05/30/2025 9:15 AM EDT - 05/30/2025 10:55 AM EDT Surgery Cardiac Machinist General [address] [place] [address] Bryan Allen MD [address] [place] [address] Left atrial appendage closure (transvenous) [32305 (CPT )] 06/05/2025 4:00 PM EDT Office Visit [facility] Nephrology, Bone & Mineral Metabolism [address] [facility], [address] [place] [address] 01/26/2026 11:00 AM EDT Office Visit [facility] [address] [place] [address] Luis Olivares MD [address] [address] documented as of this encounter Visit Diagnoses Diagnosis Coronary artery disease involving [place] coronary artery of [place] heart without angina pectoris Paroxysmal atrial fibrillation (CMS/HCC) Atrial fibrillation Paroxysmal [...] as of this encounter Care Teams Machine Load Clerk Relationship Specialty Start Date End Date Heladio Palm MD [address] [place] [address] PCP - General Internal Medicine 05/02/22 documented as of this encounter
--- OUTSIDE RECORDS SUMMARY | 2025-04-28 12:55 | XMS_ITS | Encounter Summary ---
Author Organization [facility] Address [address] [place] [address] Care Team Providers Care Collector Name Role Phone Dano Romero MD Primary Care Provider [phone] Reason for Visit * Reason Comments Med Refill Encounter Details Date Type Department Care Team (Late st Contact Info) Description 07/08/2019 Refill [facility] FAMILY MEDICINE [address] [phone] Huber Grossman MD Social History Tobacco Use [...] states that when she went to go vegetable picker her refill that she was informed [...] documented as of this encounter Care Teams Collector Relationship Specialty Start Date End Date Dano Romero MD [address] [place] [address] PCP - General Internal Medicine 09/29/19 documented as of this encounter
--- OUTSIDE RECORDS SUMMARY | 2025-04-28 12:55 | XMS_ITS | Encounter Summary ---
[facility] Address [address] [place] [address] Care Team Providers Care Personal Injury Paralegal Name Role Phone Dano Romero MD Primary Care Provider [phone] Reason for Visit * Reason Onset Date Comments Med Refill 11/16/2018 Encounter Details Date Type Department Care Team (Late st Contact Info) Description 11/16/2018 Refill [facility] FAMILY MEDICINE [address] [phone] Huber Grossman MD Social History Tobacco Use [...] documented as of this encounter Care Teams Personal Injury Paralegal Relationship Specialty Start Date End Date Dano Romero MD [address] [place] [address] PCP - General Internal Medicine 09/29/19 documented as of this encounter
--- OUTSIDE RECORDS SUMMARY | 2025-04-28 12:55 | XMS_ITS | Encounter Summary ---
Author Organization Healthcare Address [address] [place] [address] Care Team Providers Care Park Maintainer Name Role Phone Heladio Palm MD Primary Care Provider + [phone] Encounter Details Date Type Department Care Team ( st Contact Info) Description 11/03/2024 Orders Only External Location [address] [place] [address] Provider, External Social History Tobacco [...] 05/30/2025 9:15 AM EDT Hospital Encounter Cardiac Stump Shooter [address] [place] [phone] Bryan Allen MD [address] [place] [phone] Paroxysmal atrial fibrillation (CMS/HCC) 05/30/2025 9:15 AM EDT - 05/30/2025 10:55 AM EDT Surgery Cardiac Stump Shooter [address] [place] [address] Bryan Allen MD [address] [place] [address] Left atrial appendage closure (transvenous) [13602 (CPT )] 06/05/2025 4:00 PM EDT Office Visit [facility] Nephrology, Bone & Mineral Metabolism [address] [facility], [address] [place] [address] 01/26/2026 11:00 AM EDT Office Visit [facility] Eye Care [address] [facility] [place] [address] Luis Olivares MD [address] [facility] [address] [place] [address] documented as of this encounter [...] documented as of this encounter Care Teams Park Maintainer Relationship Specialty Start Date End Date Heladio Palm MD [address] [place] [address] PCP - General Internal Medicine 05/02/22 documented as of this encounter
--- OUTSIDE RECORDS SUMMARY | 2025-04-28 12:55 | XMS_ITS | Encounter Summary ---
Author Organization Healthcare Address [address] [place] [address] Care Team Providers Care Nursing Home Administrator Name Role Phone Heladio Palm MD Primary Care Provider + [phone] Encounter Details Date Type Department Care Team ([facility] Contact Info) Description 03/13/2025 Telephone [facility] Nephrology, Bone & Mineral Metabolism [address] [facility], [address] [place] [address] Alejandra Camacho MD [address] [place] [address] Social History Tobacco Use Types [...] optimal time of day to reach caller: [phone] Note: Please do not reply to this message. Follow-up communication and further actions as a result of this message need to be communicated with the patient directly, if the patient is not active onMyChart. If the patient is active on MyChart, they will receive notification of the communication/outcome via [employer]. documented in this encounter Plan of Treatment Upcoming Encounters Date Type Department Care Team (Latest Contact Info) Description 05/30/2025 9:15 AM EDT Hospital Encounter Cardiac Manager Valuation [address] [place] [phone] Bryan Allen MD [address] [place] [address] Paroxysmal atrial fibrillation (CMS/HCC) 05/30/2025 9:15 AM EDT - 05/30/2025 10:55 AM EDT Surgery Cardiac Manager Valuation [address] [place] [phone] Bryan Allen MD [address] [place] [address] Left atrial appendage closure (transvenous) [95372 (CPT )] 06/05/2025 4:00 PM EDT Office Visit [facility] [place] Nephrology, Bone & Mineral Metabolism [address], [address] [place] [address] 01/26/2026 11:00 AM EDT Office Visit [facility] [address] [place] [address] Luis Olivares MD [address] [place] [address] documented as of this encounter Visit Diagnoses [...] documented as of this encounter Care Teams Nursing Home Administrator Relationship Specialty Start Date End Date Heladio Palm MD [address] [facility] [address] [place] [address] PCP - General Internal Medicine 05/02/22 documented as of this encounter
--- OUTSIDE RECORDS SUMMARY | 2025-04-28 12:55 | XMS_ITS | Encounter Summary ---
[facility] [address] [place] [address] Care Team Providers Care Computer Technologist Name Role Phone Dano Romero MD Primary Care Provider [phone] Encounter Details Date Type Department Care Team (Late st Contact Info) Description 02/02/2018 Telephone [facility] [address] [place] [address] Huber Grossman MD Social History Tobacco [...] as of this encounter Care Teams Computer Technologist Relationship Specialty Start Date End Date Dano Romero MD [address] [place], [place] [phone] PCP - General Internal Medicine 09/29/19 documented as of this encounter
--- OUTSIDE RECORDS SUMMARY | 2025-04-28 12:55 | XMS_ITS | Encounter Summary ---
Author Organization Healthcare Address [address] [place] [address] Care Team Providers Care Partner Cco Name Role Phone Heladio Palm MD Primary Care Provider + [phone] Encounter Details Date Type Department Care Team (Late st Contact Info) Description 04/14/2025 Telephone [facility] [place] [address] [place] [address] None, None [address] [phone] Social History Tobacco Use Types Packs/Day Years [...] get scheduled. I have requested records from [facility]. * Telephone Encounter - Nola Sher - [...] getting a watchman placed, currently inpatient at [facility]? Best contact number: [phone] (mobile) Optimal time of day to reach [...] will receive notification of the communication/outcome via [employer]. documented in this encounter Plan of Treatment Upcoming Encounters Date Type Department Care Team (Latest Contact Info) Description 05/30/2025 9:15 AM EDT Hospital Encounter Cardiac Awake Overnight Monitor [address] [place] [address] Bryan Allen MD [address] [place] [address] Paroxysmal atrial fibrillation (CMS/HCC) 05/30/2025 9:15 AM EDT - 05/30/2025 10:55 AM EDT Surgery Cardiac Awake Overnight Monitor [address] [place] [address] Bryan Allen MD [address] [place] [phone] Left atrial appendage closure (transvenous) [25877 (CPT )] 06/05/2025 4:00 PM EDT Office Visit [facility] Nephrology, Bone & Mineral Metabolism [address] [facility], [address] [place] [address] 01/26/2026 11:00 AM EDT Office Visit [facility] [address] [facility] [place] [address] Luis Olivares MD [address] [facility] [address] [place] [address] documented as of this encounter [...] documented as of this encounter Care Teams Partner Cco Relationship Specialty Start Date End Date Heladio Palm MD [address] [place], [place] [address] PCP - General Internal Medicine 05/02/22 documented as of this encounter
--- OUTSIDE RECORDS SUMMARY | 2025-04-28 12:55 | XMS_ITS | Clinical Summary ---
Author Organization [facility] Address [address] [place] [address] Care Team Providers Care Credit Relationship Manager Name Role Phone Heladio Palm MD Primary Care Provider + [phone] Allergies Active Allergy Reactions Criticality Noted Date [...] MOUTH TWICE A DAY FOR 30 DAYS 04/17/20 Active levothyroxine (Synthroid, Levoxyl) 100 MCG tablet Take 1 tablet (100 mcg) by mouth 1 (one) time each day. 03/01/20 Active venlafaxine (Effoxor) 100 MG tablet Take 1 tablet (100 mg) by mouth 1 (one) time each day. 04/19/20 Active cholecalcifero l (Vitamin D3) 25 MCG (1000 UT) tablet Take 1 tablet (1,000 Units) by mouth 1 (one) time each day. Active magnesium oxide (Mag-Ox) 400 (240 Mg) MG tablet Take 1 tablet (400 mg) by mouth 1 (one) time each day. Active clopidogrel (Plavix) 75 MG tablet Take 1 tablet (75 mg) by mouth 1 (one) time each day. 07/01/20 Active biotin 1000 MCG tablet 1 (one) time each day at the same time. 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 90 tablet 3 01/15/20 23 Active Additional Information Patient taking differently: 80 mg Oral Daily, Reported on 04/24/2025 dapagliflozin (Farxiga) 10 MG tablet Take 1 tablet (10 mg) by mouth 1 (one) time each day. Active acetaminophen (Tylenol 8 Hour) 650 MG ER tablet Take 1 tablet (650 mg) by mouth every 8 (eight) hours if needed for mild pain. Do not crush, chew, or split. Active furosemide (Lasix) 40 MG tablet Take 1 tablet by mouth daily. 04/18/20 Active dilTIAZem CD (Cardizem CD) 240 MG 24 hr capsule Take 1 capsule by mouth nightly. 04/14/20 25 Active predniSONE (Deltasone) 50 MG tablet Take 1 tablet by mouth 13 hours, 7, hours, and 1 hour before radiology study. 3 tablet 1 04/24/20 25 Active diphenhydrAMIN E (Benadryl) 50 MG tablet Take 1 tablet by mouth 1 hour before radiology study. 3 tablet 04/24/20 25 Active losartan (Cozaar) 50 MG tablet TAKE 1 TABLET BY MOUTH EVERY DAY FOR 30 DAYS 06/18/20 22 025 Discontinued triamterene-hy droCHLOROthiaz riya (Dyazide) 37.5-25 MG capsule Take 1 capsule by mouth 1 (one) time each day. FOR 90 DAYS 05/04/20 025 Discontinued methocarbamol (Robaxin) 500 MG tablet Take 1 tablet by mouth 4 (four) times a day. 90 tablet 1 12/30/19 25 025 Discontinued Active Problems Problem Noted Date Diagnosed Date [...] Encounters Date Type Department Care Team Description 04/27/2025 Episode Changes [facility] [address] [place] [address] Nola Sher 04/24/2025 2:10 PM EDT Office Visit [facility] [address] [place] [address] Bryan Allen MD Paroxysmal atrial fibrillation (CMS/HCC) (Primary Dx) 04/24/2025 Travel 04/23/2025 Travel 04/14/2025 Telephone [facility] [address] [address] None, None 03/13/2025 Telephone [facility] Nephrology, Bone & Mineral Metabolism [address] [facility], [address] [place] [address] Alejandra Camacho MD 03/12/2025 Travel 03/02/2025 Telephone [facility] [address] [place] [address] Luis Olivares MD 02/27/2025 Orders Only [facility] Nephrology, Bone & Mineral Metabolism [address] [facility], [address] [place] [address] Whitney Doan Hypercalcemia (Primary Dx) 02/27/2025 Telephone [facility] Nephrology, Bone & Mineral Metabolism [address] [facility], [address] [place] [address] Alejandra Camacho MD [facility] Clinical Concern/Question 02/16/2025 [facility] Nephrology, Bone & Mineral Metabolism [address] [facility], [address] [place] [address] Daxa Martin MBBS 02/09/2025 [facility] Nephrology, Bone & Mineral Metabolism [address], [address] [place] [address] Lashonda William, TAG STRINGER 02/09/2025 [facility] Nephrology, Bone & Mineral Metabolism [address], [address] [place] [address] Lashonda William, TAG STRINGER 02/02/2025 [facility] Nephrology, Bone & Mineral Metabolism [address] [place] [address] OlimpiaRandell wrenniurka Quigley 02/02/2025 Travel 01/30/2025 Travel from Last 3 [...] Pulse 64 04/24/2025 1:52 PM EDT Temperature 36.4 C (97.5 F) 02/08/2024 2:56 PM EDT Respiratory Rate 16 02/08/2024 2:56 PM EDT Oxygen Saturation 94% 04/24/2025 1:52 PM EDT Inhaled Oxygen Concentration - - Weight 105 kg (231 lb 14.8 oz) 04/24/2025 1:50 P M EDT Height 154.9 cm (5' 1 ) 04/24/2025 1:50 PM EDT Body Mass Index 43.82 04/24/2025 1:50 PM EDT Plan of Treatment Upcoming Encounters Date Type Department Care Team (Latest Contact Info) Description 05/30/2025 9:15 AM EDT Hospital Encounter Cardiac Radiological Health Specialist [address] [place] [address] Bryan Allen MD [address] [place] [address] Paroxysmal atrial fibrillation (CMS/HCC) 05/30/2025 9:15 AM EDT - 05/30/2025 10:55 AM EDT Surgery Cardiac Radiological Health Specialist [address] [place] [address] Bryan Allen MD [address] [place] [address] Left atrial appendage closure (transvenous) [79885 (CPT )] 06/05/2025 4:00 PM EDT Office Visit [facility] Nephrology, Bone & Mineral Metabolism [address] [facility], [address] [place] [address] 01/26/2026 11:00 AM EDT Office Visit [facility] [address] [place] [address] Luis Olivares MD [address] [place] [address] Health Maintenance Due Date Last [...] 05/22/2020 11/23/2019, 11/23/2019, 09/07/2019, Additional history exists [id number] Vaccine ( - season) 2024 06/27/2021, 11/01/2020, 10/04/2020 [facility]-Zoster Vaccines (2 of 2) 06/14/2024 04/19/2024, 04/23/2017 [facility]-Influenza Vaccine (#1) 05/08/202507/19, 06/27/2021, 06/04/2020, Additional history exists [facility]-Depression Screening 04/24/2026 04/24/2025, 04/07 [facility]-DTaP,Tdap,and Td Vaccines (2 - Td or Tdap) 03/02/2035 03/02/2025 [facility]-Hepatitis C Screening Completed 12/13/2019, [facility]-Breast Cancer Screening Discontinued 11/28/2021, 11/28/2021, 11/30/2018, Additional history exists [facility]-RSV Vaccine: 60+ Years or Completed 04/19/2024 [facility]-Obesity Intervention Completed 025, 12/30/2024, 12/29/2024, Additional history exists HPV Vaccines Aged Out [...] <6.0% Children and Adolescents <7.5% . Source: [place] [employer]. Standards of medical care in diabetes, 2017. Diabetes Care.2017:40 (suppl 1):S1-S135. . HbA1c assay performed by an ion-exchange chromatography method that is certified traceable to the DCCT. 11/23/2019 2:45 PM EDT 11/23/2019 2:59 PM EDT us Deng Brumfield ELECTRIC BLASTING CAP ASSEMBLER LAB BLOOD ORDERABLES Fadia ashley Result SUNQUEST from Last 3 Months or Most Recently Relevant to Health Maintenance Insurance MEDICARE [employer] Care Teams Credit Relationship Manager Relationship Specialty Start Date End Date Heladio Palm MD [address] [place], [place] [address] PCP - General Internal Medicine 05/02/22
--- OUTSIDE RECORDS SUMMARY | 2025-04-28 12:55 | XMS_ITS | Encounter Summary ---
[facility] [address] [place] [address] Care Team Providers Care Recovery Engineer Name Role Phone Dano Romero MD Primary Care Provider [phone] Encounter Details Date Type Department Care Team (Late st Contact Info) Description 08/01/2019 Telephone [facility] [address] [place] [address] Huber Grossman MD Social History Tobacco [...] documented as of this encounter Care Teams Recovery Engineer Relationship Specialty Start Date End Date Dano Romero MD [address] [place] [address] PCP - General Internal Medicine 09/29/19 documented as of this encounter
--- OUTSIDE RECORDS SUMMARY | 2025-04-28 12:55 | XMS_ITS | Encounter Summary ---
[facility] [address] [place] [address] Care Team Providers Care Knife Edger Name Role Phone Dano Romero MD Primary Care Provider [phone] Encounter Details Date Type Department Care Team (Late st Contact Info) Description 11/20/2017 External CPT II MOLECULAR GENETICIST - [facility] Social History Tobacco Use [...] documented as of this encounter Care Teams Knife Edger Relationship Specialty Start Date End Date Dano Romero MD [address] [place] [address] PCP - General Internal Medicine 09/29/19 documented as of this encounter
--- OUTSIDE RECORDS SUMMARY | 2025-04-28 12:56 | XMS_ITS | Encounter Summary ---
Author Organization [facility] Address [address] [place] [address] Care Team Providers Care Equine Vet Name Role Phone Heladio Palm MD Primary Care Provider + [phone] Encounter Details Date Type Department Care Team (Late st Contact Info) Description 04/27/2025 Episode Changes [facility] [place] [address] [facility] [place] [address] [place] [address] Social History Tobacco Use Types Packs/Day Years [...] 05/30/2025 9:15 AM EDT Hospital Encounter Cardiac Clinical Research Associate [address] [place] [address] Bryan Allen MD [address] [place] [address] Paroxysmal atrial fibrillation (CMS/HCC) 05/30/2025 9:15 AM EDT - 05/30/2025 10:55 AM EDT Surgery Cardiac Clinical Research Associate [address] [place] [address] Bryan Allen MD [address] [place] [address] Left atrial appendage closure (transvenous) [52393 (CPT )] 06/05/2025 4:00 PM EDT Office Visit [facility] Nephrology, Bone & Mineral Metabolism [address] [facility] [facility], [address] [place] [address] 01/26/2026 11:00 AM EDT Office Visit [facility] [address] [facility] [place] [address] Luis Olivares MD [address] [facility] [address] [place] [address] documented as of this encounter [...] documented as of this encounter Care Teams Equine Vet Relationship Specialty Start Date End Date Heladio Palm MD [address] [place], [place] [address] PCP - General Internal Medicine 05/02/22 documented as of this encounter
--- OUTSIDE RECORDS SUMMARY | 2025-04-28 12:56 | XMS_ITS | Encounter Summary ---
Author Organization Healthcare Address [address] [place] [id number] Care Team Providers Care Transferrer Name Role Phone Heladio Palm MD Primary Care Provider + [phone] Encounter Details Date Type Department Care Team (Latest Contact Info) Description 04/23/2025 Travel Social History Tobacco Use Types Packs/Day [...] 05/30/2025 9:15 AM EDT Hospital Encounter Cardiac Digital Cartographer [address] [place] [address] Bryan Allen MD [address] [place] [address] Paroxysmal atrial fibrillation (CMS/HCC) 05/30/2025 9:15 AM EDT - 05/30/2025 10:55 AM EDT Surgery Cardiac Digital Cartographer [address] [place] [address] Bryan Allen MD [address] [place] [address] Left atrial appendage closure (transvenous) [33969 (CPT )] 06/05/2025 4:00 PM EDT Office Visit [facility] Nephrology, Bone & Mineral Metabolism [address] [facility], [address] [place] [address] 01/26/2026 11:00 AM EDT Office Visit [facility] [address] [facility] [place] [address] Luis Olivares MD [address] [place] [address] documented as of this encounter [...] documented as of this encounter Care Teams Transferrer Relationship Specialty Start Date End Date Heladio Palm MD [address] [place] [address] PCP - General Internal Medicine 05/02/22 documented as of this encounter
--- OUTSIDE RECORDS SUMMARY | 2025-04-28 12:56 | XMS_ITS | Clinical Summary ---
Author Organization [facility] Address [address] [place] [address] Care Team Providers Care Door Frame Builder Name Role Phone Dano Romero MD Primary Care Provider [phone] Allergies Active Allergy Reactions Criticality Noted Date [...] (LIPITOR) 40 MG tablet 0 Active Biotin 29418 MCG tablet 1 Active carvedilol (COREG) 25 [...] - 5.60 % 09/07/2019 4:51 PM EST [facility] Blood Venipuncture / Unknown 09/07/2019 4:10 PM EST 09/07/2019 4:19 PM EST Narrative [facility] - 09/07/2019 4:51 PM EST Hemoglobin A1C Ranges: Increased Risk for Diabetes 5.7% to 6.4% Diabetes >= 6.5% Diabetic Goal < 7.0% Sammie Morales DNP, WOOD FINISHER APPRENTICE LAB BLOOD ORDERABLES Fi nal Result [facility]
[address] [place] [address], * SCANNED - INFLUENZA (06/24/2019) Huber Grossman MD CHART REVIEW TABS Final Re sult * (ABNORMAL) Lipid Panel (03/25/2019 10:33 AM EDT) Total Cholesterol 152 0 - 200 mg/dL 03/25/2019 6:52 PM EDT [facility] Triglycerides 165(H) 0 - 150 mg/dL 03/25/2019 6:52 PM EDT [facility] HDL Cholesterol 37(L) 40 - 60 mg/dL 03/25/2019 6:52 PM EDT [facility] LDL Cholesterol 82 0 - 100 mg/dL 03/25/2019 6:52 PM EDT [facility] VLDL Cholesterol 33 5 - 40 mg/dL 03/25/2019 6:52 PM EDT [facility] LDL/HDL Ratio 2.22 03/25/2019 6:52 PM EDT [facility] Blood Left upper arm structure / Unknown Venipuncture / Unknown 03/25/2019 10:33 AM EDT 03/25/2019 10:33 AM EDT Narrative [facility] - 03/25/2019 6:52 [...] MD LAB BLOOD ORDERABLES Final Re sult [facility]
[address] [place] [address], * SCANNED - EYE EXAM (01/05/2019) Anatomical Region Laterality Modality Other Huber Grossman MD CHART REVIEW TABS Final Re sult * Hepatitis C Antibody (12/21/2018 10:57 AM EDT) Hepatitis C Ab Non-Reacti ve Non-Reacti ve 12/21/2018 7:17 PM EDT [facility] Blood Right upper arm structure / Unknown Venipuncture / Unknown 12/21/2018 10:57 AM EDT 12/21/2018 10:58 AM EDT us Huber Grossman MD LAB BLOOD ORDERABLES Final Re sult [facility]
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 09/08/2019 09/08/2019 Insurance MEDICARE A & B [facility] Advance Directives * CPR (Attempt to [...] pulse or is breathing): Full Care Teams Door Frame Builder Relationship Specialty Start Date End Date Dano Romero MD [address] [place] [address] PCP - General Internal Medicine 09/29/19
--- OUTSIDE RECORDS SUMMARY | 2025-04-28 12:56 | XMS_ITS | Encounter Summary ---
Author Organization Healthcare Address [address] [place] [address] Care Team Providers Care Railroad Car Truck Builder Name Role Phone Heladio Palm MD Primary Care Provider + [phone] Encounter Details Date Type Department Care Team (Latest Contact Info) Description 04/24/2025 Travel Social History Tobacco Use Types Packs/Day [...] on file documented as of this encounter Functional Status * Over the [...] television Not at all 04/24/2025 1:50 PM THELMAT Nola Sher Moving or speaking so slowly [...] Nola Sher documented as of this encounter Plan of Treatment Upcoming Encounters Date Type Department Care Team (Latest Contact Info) Description 05/30/2025 9:15 AM EDT Hospital Encounter Cardiac Automotive Repair Technician [address] [place] [address] Bryan Allen MD [address] [place] [address] Paroxysmal atrial fibrillation (CMS/HCC) 05/30/2025 9:15 AM EDT - 05/30/2025 10:55 AM EDT Surgery Cardiac Automotive Repair Technician [address] [place] [address] Bryan Allen MD [address] [place] [address] Left atrial appendage closure (transvenous) [71933 (CPT )] 06/05/2025 4:00 PM EDT Office Visit [facility] Nephrology, Bone & Mineral Metabolism [address] [facility], [address] [place] [address] 01/26/2026 11:00 AM EDT Office Visit [facility] [address] [place] [address] Luis Olivares MD [address] [place] [address] documented as of this encounter [...] documented as of this encounter Care Teams Railroad Car Truck Builder Relationship Specialty Start Date End Date Heladio Palm MD [address] [place] [address] PCP - General Internal Medicine 05/02/22 documented as of this encounter
[2025-04-28 14:37] LABS: Anion Gap 14.4 mEq/L (5-15); Blood Urea Nitrogen 22 mg/dl (7-17); Calcium 9.6 mg/dl (8.4-10.2); Carbon Dioxide 25 mmol/L (22.0-30.0); Chloride 104 mmol/L (98-107); Creatinine,Serum 1.00 mg/dl (0.52-1.04); Estimated Glomerular Filt Rate 54 ml/min (>60); GFR (African American) 65 ML/MIN (>60); Glucose 141 mg/dl (74-100); Magnesium 1.2 mg/dl (1.6-2.3); Potassium 4.4 mmoL/L (3.5-5.1); Sodium 139 mmol/L (136-145)
== END 2025-04-28 23:59 | disposition home or self-care (01) ==
LOC: LAB 12:53
PROVIDERS: PCP Internal Medicine Adolescent Medicine; Visit Provider Physician Assistant
DX: E78.2 Mixed hyperlipidemia (principal); I10 Essential (primary) hypertension; E83.42 Hypomagnesemia
CPT/HCPCS: 36415; 80048; 83735

== ENCOUNTER 2025-06-01 15:25 | Outpatient (CLI) | payer MEDICARE, OTHER, SELFPAY ==
--- OUTSIDE RECORDS SUMMARY | 2019-05-11 19:56 | XMS_ITS | Encounter Summary ---
[facility] [address] [place] [address] Care Team Providers Care Javascript Developer Name Role Phone Huber Grossman MD Primary Care Provider Barbara valladares Reason for Referral * Diagnostic Medical (Routine) - Closed Specialty Diagnoses / Procedures Referred By Contac t Referred To Contact Sleep Medicine Diagnoses DELL (obstructive sleep apnea) Procedures Polysomnography 4 or More Parameters Luis Galvan MD Phone: tel: fax: [facility] [address] [address] Phone: tel: fax: Referral ID Status Reason Start Date Expiration Date Visits Re quested Visits Authorized [id number] Closed 12/20/2018 12/20/2019 1 1 Reason for Visit * Diagnostic Medical (Routine) - Closed Specialty Diagnoses / Procedures Referred By Contac t Referred To Contact Sleep Medicine Diagnoses DELL (obstructive sleep apnea) Procedures Polysomnography 4 or More Parameters Luis Galvan MD Phone: tel: fax: [facility] [address] [address] Phone: tel: fax: Referral ID Status Reason Start Date Expiration Date Visits Re quested Visits Authorized [id number] Closed 12/20/2018 12/20/2019 1 1 Encounter Details Date Type Department Care Team (Late st Contact Info) Description 05/11/2019 7:56 PM EDT Hospital Encounter [facility] [address] [place] [phone] Luis Galvan MD [address] [place] [address] DELL (No follow-up); DELL (obstructive sleep apnea) Social History Tobacco Use Types Packs/Day Years Used Date Smoking Tobacco: Former Cigarettes 1 6 1 994 - 1999 Smokeless Tobacco: Never Comments:Quit 20 years ago Alcohol Use Standard Drinks/Week Comments No 0 (1 standard drink = 0.6 oz pur e alcohol) PHQ-2 Answer Date Recorded PHQ-2 Score 11 08/17/2018 Abuse Screen Answer Date Recorded Unsafe at Home or Work/School Not on file Feels Threatened by Someone? Not on file 05/2023 Does Anyone Keep You from Co ntacting Others or Doint Things Outside the Home? Not on file 06/15/2023 Physical Sign of Abuse Present Not on file 1 Housing Stability Answer Date Recorded Current Living Arrangements Not on file 05/2023 Potentially Unsafe Housing Conditions Not on jesica e 06/15/2023 Family and Community Support Answer Tyrnoe e Recorded Help with Day-to-Day Activities Not on file 06/15/2023 Lonely or Isolated Not on file 06/15/2023 Employment Answer Date Recorded Do you want help finding or keeping work or a halle b? Not on file 06/15/2023 Disabilities Answer Date Recorded Concentrating, Remembering, or Making Decisions Difficulty Not on file 06/15/2023 Doing Errands Independently Difficulty Not on fi le 06/15/2023 Education Answer Date Recorded Help with school or training? Not on file Preferred Language Not on file 06/15/2023 Comments No Sex and Gender Information Value Date Recorded Sex Assigned at Not on file Legal Sex Female 12:36 PM EDT Gender Identity Not on file Sexual Orientation Not on file documented as of this encounter Last Filed Vital Signs Vital Sign Reading Time Taken Comments Blood Pressure 188/79 05/11/2019 8:16 PM EDT Pulse 98 05/11/2019 8:16 PM EDT Temperature - - Respiratory Rate - - Oxygen Saturation 92% 05/11/2019 8:16 PM EDT Inhaled Oxygen Concentration - - Weight 129 kg (284 lb 6.3 oz) 05/11/2019 8:16 PM EDT Height 156.2 cm (5' 1.5 ) 05/11/2019 8:16 PM EDT Body Mass Index 52.87 05/11/2019 8:16 PM EDT documented in this encounter Plan of Treatment Not on file documented as of this encounter Procedures Procedure Name Priority Date/Time Associated Diagnosis Comments NPSG Routine 05/12/2019 6:12 AM EDT DELL (obstructive sleep apnea) documented in this encounter Results * NPSG (05/12/2019 6:12 AM EDT) Narrative Jonnathan Grajeda MD - 05/22/2019 3:53 PM EDT Polysomnography Report Patient Name: Mirtha Quigley Shawanda Interpreting Physician: Jonnathan Grajeda MD Date of : 1950 Referring Physician: No info available Primary Care Physician: Huber Grossman MD Date of Study: Clinical Information Patient is a 69 y.o. female. She was seen by Hernando Galvan MD and the following history obtained last December: She has a history of obstructive sleep apnea. She underwent a home sleep study at [facility] a while ago which was apparently positive. She was supposed to go in for a titration sleep study which she never did. She has nocturnal hypoxemia and uses supplemental oxygen every night. She is morbidly obese with a BMI of nearly 55. A sleep study was ordered and was finally performed on 05/12/2019. Methods used for Diagnostic Study: Subject was monitored in the sleep laboratory. Electroencephalogram (C3/M2, C4/M1, F3/M2, F4/M1, 01/M2, O2/M1), EOG, EKG, and EMG (chin and bilateral anterior tibialis) were monitored by surface electrodes and recorded utilizing a computerized polygraph. Airflow was recorded by a thermistor and pressure transducer at the nose and mouth and oxygen saturation was recorded by a pulse oximeter. Thoracic and abdominal respiratory movements were recorded on 2 separate channels by respiratory inductive plethysmograph. Sleep stages were scored by standard techniques and abnormal respiratory events, cardiac arrhythmias, and leg movements were analyzed. Polysomnography Results A) Sleep statistic and architecture: The patient had a sleep efficiency of Sleep Efficiency (%): 49.1 % . Sleep latency was Sleep Latency (min): 195.5 minutes. All stages of sleep were not seen during the study. The arousal index was Spontaneous Arousal Index (#/hr TST): 11.6 per hour. B) Respiratory events: Apnea-hypopnea index was AHI: 27.2 per hour. The respiratory disturbance index was RDI (if applicable): 32.5 per hour. C) Snoring: Snoring was noted to be present by the senior laboratory technician in attendance. D) Oxygen saturation: Oxygen saturation had a mean of Arterial Oxygen Saturation, Mean Value (%): 90 % % with a minimum oxygen saturation of Min SpO2: 82 % %. E) Periodic limb movements: The periodic limb movement index was not elevated at Total # PLMS Arousals: 0 per hour. F) ECG: was not prolonged arrhythmias. G) Further detail to follow. Diagnostic Summary Total Recording Time: Total Recording Time (TIB) (min): 486.1 minutes Total Sleep Time: Total Sleep Time (TST)(min): 238.5 minutes Sleep Latency: Sleep Latency (min): 195.5 Stage R Latency: No Data Recorded Sleep Efficiency: Sleep Efficiency (%): 49.1 % Respiratory Data Obstructive Apnea Index: Obstructive Apnea Index (#/hr TST): 0.3 Central Apnea Index: Central Apnea Index (#/hr TST): 0 Mixed Apnea Index: Mixed Apnea Index (#/hr TST): 0 Obstructive Hypopnea Index: Obstructive Hypopnea Index (#/hr TST): 26.9 Total Apnea Index: Total Apnea Index (#/hr TST): 0.3 AHI: AHI: 27.2 RDI: RDI (if applicable): 32.5 NREM Total Apnea Idex: NREM Total Al (#/hr TST): 0.3 REM Total Apnea Index: No Data Recorded REM Hypopnea Index: No Data Recorded NREM Hypopnea Index: NREM Hypopnea Index: 26.9 Diagnostic Respiratory Index Summary by Body Position Supine AHI, TOTAL AHI, TOTAL : 0 RDI, TOTAL RDI, TOTAL : 0 TST (min) TST (MIN) : 0 Left AHI, TOTAL AHI, TOTAL : 27.2 RDI, TOTAL RDI, TOTAL : 32.5 TST (min) TST (min) : 238.5 Right AHI, TOTAL No Data Recorded RDI, TOTAL No Data Recorded TST (min) No Data Recorded Prone AHI, TOTAL No Data Recorded RDI, TOTAL No Data Recorded TST (min) No Data Recorded Arousals Respiratory Arousal Index: Resp Arousal Index (#/hr TST): 12.1 Leg Arousal Index: Leg Arousal Index (#/hr TST): 0 Spontaneous Arousal Index: No Data Recorded Total Arousal Index: Spontaneous Arousal Index (#/hr TST): 11.6 Limb Movements PLMS Index: Total # PLMS Arousals: 0 PLMS Arousal Index: No Data Recorded Cardiac Average HR During Sleep: Avg HR During Sleep: 81.4 bpm Highest HR During Sleep: Highest HR During Sleep: 94 bpm Oximetry Minimum SPO2: Min SpO2: 82 % O2 Saturation, Mean Value: Arterial Oxygen Saturation, Mean Value (%): 90 % Impression: - moderate obstructive sleep apnea is present. - Oxygen desaturation is present. - Snoring is present. Plan: - The patient would likely benefit from treatment for obstructive sleep apnea. Options would include auto CPAP therapy, an oral appliance if appropriate, or surgical therapy. Clinical correlates should be taken into account in formulating the specific treatment plan. Lifestyle changes consisting of weight loss if needed and avoidance of nocturnal sedatives should be recommended. The patient was not seen in consultation at the sleep center and therefore should follow-up with the referring provider for consideration of treatment options. 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 09/08/2019 09/08/2019 documented as of this encounter Care Teams Javascript Developer Relationship Specialty Start Date End Date Huber Grossman MD PCP - General Family Medicine 02/08/18 09/28/19 documented as of this encounter
--- OUTSIDE RECORDS SUMMARY | 2025-03-28 10:30 | XMS_ITS ---
Author Organization [facility] Address [address] [place] [address] Care Team Providers Care Open Hearth Stockyard Supervisor Name Role Phone Heladio Palm Primary Care Provider [phone] REASON FOR VISIT lab f/u Encounters Encounter Location Date Provider Diagnosis [facility] [address] [address] 03/28/2025 Heladio Palm Plan Of Treatment Next Appt Details Provider Name:Heladio Palm, 06/22/2025 12:15:00 PM, [address] [place] [address], [phone], Progress Notes * Karo VELAZQUEZOB:[birth year] (75 yo F)Acc No.[id number]:03/28/2025 Progress Notes Patient: Juwan Mirtha RUST Provider: Haritha Palm MD :1950 A ge:75 Y S ex:Female Date:03/28/2025 Address:[address] [place] [address] [id number] Subjective: * Chief Complaints: * 1 . Lab f/u. * 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: Objective: * Vitals: Assessment: Plan: * Treatment: * * Electronic signature of Jeffy Palm MD FAAP on 06/01/2025 at 03:51 PM EDT Sign off status: Pending * Provider: Haritha Palm MD Date: 0 03/28/2025 Generated for Maggy shine/Tila/Loni on: 0 06/01/2025 03:51 PM EDT
--- OUTSIDE RECORDS SUMMARY | 2025-03-29 05:15 | XMS_ITS ---
Author Organization [facility] Address [address] [facility] [address] [facility] [address] [place] [address] Care Team Providers Care Inside B2B Sales Name Role Phone Heladio Palm Primary Care Provider REASON FOR VISIT [facility] D/C 03/21/2025 Encounters Encounter Location Date Provider Diagnosis [facility] [address] [facility] [address] [place] [address] 03/29/2025 Heladio Palm Plan Of Treatment Next Appt Details Provider Name:Heladio Palm, 06/22/2025 12:15:00 PM, [address] [place] [address], [phone], Progress Notes * Karo VELAZQUEZOB:[birth year] (75 yo F)Acc No.[id number]:03/29/2025 HOSP F/U Patient: Juwan Mirtha RUST Provider: Haritha Palm MD :1950 A ge:75 Y S ex:Female Date:03/29/2025 Address:[address] [place] [address] [id number] Subjective: * Chief Complaints: * 1 . [facility] D/C 03/21/2025. * 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: Objective: * Vitals: Assessment: Plan: * Treatment: * * Electronic signature of Jeffy Palm MD FAAP on 06/01/2025 at 03:59 PM EDT Sign off status: Pending * Provider: Haritha Palm MD Date: 0 03/29/2025 Generated for Maggy shine/Tila/Loni on: 0 06/01/2025 03:59 PM EDT
--- OUTSIDE RECORDS SUMMARY | 2025-04-24 14:10 | XMS_ITS | Encounter Summary ---
Author Organization Healthcare Address [address] [place] [address] Care Team Providers Care Lead Java Software Engineer Name Role Phone Heladio Palm MD Primary Care Provider + [phone] Encounter Details Date Type Department Care Team (Late st Contact Info) Description 04/24/2025 2:10 PM EDT Office Visit [facility] [place] [address] [place] [address] Bryan Allen MD [address] [place] [address] Paroxysmal atrial fibrillation (CMS/HCC) (Primary Dx) Social [...] Not at all 04/24/2025 1:50 PM EDT oNla Sher Feeling down, depressed, or hopeless Not [...] -9 Score 0 04/24/2025 1:50 PM EDT Christos Nola Quigley * How difficult have these problems made it for you to do your work, take care of things at home, or get along with other people? Answer Date of Assessment Author Not difficult at all 04/24/2025 1:50 PM EDT Delilah Morganica Soraida documented as of this encounter Miscellaneous Notes [...] patient and family/caregiver, communicating with other health hospice care consultant, and entering clinical information in the EHR. [...] Care Team (Late st Contact Info) Description 06/05/2025 4:00 PM EDT Office Visit [facility] [place] Nephrology, Bone & Mineral Metabolism [address] [facility] [address], [address] [place] [address] 07/19/2025 1:20 PM EST Appointment [facility] [address] [place] [address] 07/26/2025 4:00 PM EST Office Visit [facility] [place] [address] [facility], [address] [place] [address] Svetlana Olguin PA [address] [place] [address] 08/14/2025 1:30 PM EST Office Visit [facility] [address] [place] [address] 01/26/2026 11:00 AM EDT Office Visit [facility] [address] [facility] [place] [address] Luis Olivares MD [address] [address] documented as of this encounter Visit Diagnoses Diagnosis Paroxysmal atrial fibrillation (CMS/HCC)- Primary Atrial fibrillation documented in this encounter Additional Health Concerns Assessment Noted Time PHQ-9 Depression Total Score: 0 04/24/20 25 1:50 PM EDT A fall risk assessment has been complete d for the patient 04/24/2025 1:50 PM EDT A Body Mass Index follow-up plan has been documented for the patient 04/24/2025 3:12 PM EDT documented as of this encounter Care Teams Lead Java Software Engineer Relationship Specialty Start Date End Date Heladio Palm MD [address] [place] [address] PCP - General Internal Medicine 05/02/22 documented as of this encounter
--- OUTSIDE RECORDS SUMMARY | 2025-05-11 05:30 | XMS_ITS ---
Author Organization [facility] Address [address] [place] [address] Care Team Providers Care Termite Exterminator Name Role Phone Heladio Palm Primary Care Provider REASON FOR VISIT med ck Encounters Encounter Location Date Provider Diagnosis [address] [address] 05/11/2025 Heladio Palm Plan Of Treatment Next Appt Details Provider Name:Heladio Palm, 06/22/2025 12:15:00 PM, [address] [place] [address], [phone], Progress Notes * Karo VELAZQUEZOB:[birth year] (75 yo F)Acc No.[id number]:05/11/2025 Progress Notes Patient: Juwan MADDOXMirtha BOO Provider: Haritha Palm MD :1950 A ge:75 Y S ex:Female Date:05/11/2025 Address:[address] [place], [place] [id number] Subjective: * Chief Complaints: * 1 . Med ck. * 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: Objective: * Vitals: Assessment: Plan: * Treatment: * * Electronic signature of Jeffy Palm MD FAAP on 06/01/2025 at 04:00 PM EDT Sign off status: Pending * Provider: Haritha Palm MD Date: 0 05/11/2025 Generated for Maggy shine/Tila/Miltonitting on: 0 06/01/2025 04:00 PM EDT
--- OUTSIDE RECORDS SUMMARY | 2025-05-25 05:30 | XMS_ITS ---
Author Organization [facility] Address [address] [facility] [address] [place] [address] Care Team Providers Care Lubricating Engineer Name Role Phone Heladio Palm Primary [...] ve Results Component Value Reference Range Notes BASIC METABOLIC PANEL (00163 ) Reviewed date:05/26/2025 09:39:45 AM Interpretation: Performing Lab:[facility], [facility] [address], [id number] Brady Brown Notes/Report: NON-FASTING; NON-FASTING; NON-FASTING GLUCOSE 177 65-99 mg/dL Fasting reference interval For someone without known diabetes, a glucose value >125 mg/dL indicates that they may have diabetes and this should be confirmed with a follow-up test. UREA NITROGEN (BUN) 26 7-25 mg/dL CREATININE 1.24 0.60-1.00 mg/dL EGFR 45 > OR = 60 mL/min/1.73m2 BUN/CREATININE RATIO 21 6-22 (calc) SODIUM 142 135-146 mmol/L POTASSIUM 4.0 3.5-5.3 mmol/L CHLORIDE 101 98-110 mmol/L CARBON DIOXIDE 30 20-32 mmol/L CALCIUM 10.3 8.6-10.4 mg/dL MAGNESIUM (622) Reviewed date:05/26/2025 09:39:45 AM Interpretation: Performing Lab:[facility], [facility] [address], [id number] Brady Brown Notes/Report: NON-FASTING; NON-FASTING; NON-FASTING MAGNESIUM 1.6 1.5-2.5 mg/dL HEMOGLOBIN A1c (496) Reviewed date:05/26/2025 09:39:46 AM Interpretation: Performing Lab:[facility], [facility] [address], [id number] Brady Brown Notes/Report: NON-FASTING; NON-FASTING; NON-FASTING HEMOGLOBIN A1c 7.1 <5.7 % For someone without known diabetes, [...] A1c for diagnosis of diabetes for children. REASON FOR VISIT med ck, labs - is fasting, flu shot Medications Medication SIG (Take, Route, Frequency, Duration) Notes Start Date End Date Status Clopidogrel Bisulfate 75 MG TAKE 1 TABLET BY MOUTH ONCE DAILY; Duration: 90 Active Carvedilol 12.5 MG 1 tab Twice a day; Duration: 90 days Active Pantoprazole Sodium 40 MG TAKE 1 TABLET BY MOUTH ONCE DAILY; Duration: 90 Active Atorvastatin Calcium 40 MG TAKE 1 TABLET BY MOUTH ONCE DAILY; Duration: 90 Active Losartan Potassium 50 MG TAKE 1 TABLET BY MOUTH ONCE DAILY; Duration: 90 Active Levothyroxine Sodium 100 MCG 1 tab(s) orally once a day; Duration: 90 days Active Ozempic (0.25 or 0.5 MG/DOSE) 2 MG/3ML 0.25mg Subcutaneous weekly; Duration: 90 days has not started 03/30/2025 Active Farxiga 10 MG TAKE 1 TABLET BY MOUTH ONCE DAILY; Duration: 90 Active PEN NEEDLE 6MM 31G - ONCE A DAY; Duration: 30 DAY(S) *Please review for potential replacement for e-prescription and drug interaction check* 02/13/2020 Active CONSERVING DEVICE DIRECTED DIRECTED *Please review for potential replacement for e-prescription and drug interaction check* 03/22/2020 Active metFORMIN HCl ER 750 MG 1 tab(s) orally once a day; Duration: 90 days 07/19/2024 Active Venlafaxine HCl 100 MG 1 tab(s) orally once a day; Duration: 30 days Active Vitamin C 500 MG 1 tab(s) orally once a day; Duration: 30 day(s) Active Magnesium Oxide 400 MG 2tabs orally once a day; Duration: 30 days Active Vitamin D3 50 MCG (2000 UT) as directed orally once a day; Duration: 30 day(s) Active Acetaminophen 500 MG 2 tab(s) orally every 6 hours prn Active Biotin 1000 MCG 1 tab(s) orally once a day Active dilTIAZem HCl 180 MG 1 capsule Orally Once a day Active Furosemide 40 MG 1 tablet Orally Once a day Active Immunizations Vaccine Route Administration Date Status Comme nts Fluzone High Dose IM Intramuscular 05/25/2025 Administered Social History Tobacco Use: Social History Observation Description Date Details (start date - stop date) Former Smoker NA - NA Smoking: Question Answer Notes Are you a: former smoker How long has it been since you last smoked? > 10 years Problems Problem Type SNOMED Code ICD Code Onset Dates Problem Status W/U Status Risk Notes Problem Hypomagnesemia (107707420) Hypomagnesemia (E83.42) Active confirmed Vital Signs Temperature 98 degrees Fahrenheit 05/25/2025 Heart Rate 72 /min 05/25/2025 Blood pressure systolic 126 mm Hg 05/25/20 25 Blood pressure diastolic 62 mm Hg 025 Height 5 ft 3 in in 05/25/2025 Weight 234 lbs 05/25/2025 BMI 41.45 kg/m2 05/25/2025 Encounters Encounter Location Date Provider Diagnosis [address] [address] 05/25/2025 Heladio Palm Type 2 diabetes mellitus with diabetic chronic kidney disease E11.22 ; Chronic kidney disease, stage 3b N18.32 ; Osteoporosis screening Z13.820 ; Immunization(s) administered Z23 and Hypomagnesemia E83.42 Assessments Encounter Date Diagnosis (ICD Code) Assessment Notes Treatment Notes Treatment Clinical Notes Section Notes 05/25/2025 Type 2 diabetes mellitus with diabetic chronic kidney disease (ICD-10 - E11.22) Labs will be drawn today and reviewed personally to evaluate efficacy of current medication regimen. Last A1c was 7.9 on 03/02. Pt will be contacted when pre-authorization gets sorted out for her to start the Ozempic injections. Pt was encouraged to continue incorporating balanced options into her diet and drinking plenty of water for hydration. Pt was encouraged to continue daily walks for activity as tolerated for added benefit. 05/25/2025 Chronic kidney disease, stage 3b (ICD-10 - N18.32) Labs will be drawn today and reviewed personally to evaluate efficacy of current medication regimen. Pt was advised to stop Furosemide and start taking Triamterene-HCTZ. Pt was encouraged to continue consuming adequate water and ensuring she is staying well hydrated. Pt was encouraged to continue daily walks for activity as tolerated. Pt was encouraged to continue supportive care measures for her peripheral edema complaints. Pt was encouraged to keep and attend her appointment with Bark Skinner on Jun 06. 05/25/2025 Osteoporosis screening (ICD-10 - Z13.820) Pt will be contacted by scheduling personal to set up an appointment for her DEXA scan. Pt was encouraged to continue taking her medications as prescribed. 05/25/2025 Immunization(s) administered (ICD-10 - Z23) Flu shot was administered and tolerated well. 05/25/2025 Hypomagnesemia (ICD-10 - E83.42) Labs will be drawn today and reviewed personally to evaluate efficacy of current medication regimen. Pt will be contacted with the results and adjustments made to her medication dosing accordingly. Pt was encouraged to continue her medication until then and lifestyle modifications to diet. Plan Of Treatment Treatment Notes Assessment Notes Type 2 diabetes mellitus wit h diabetic chronic kidney disease Labs will be drawn today and reviewed personally to evaluate efficacy of current medication regimen. Last A1c was 7.9 on 03/02. Pt will be contacted when pre-authorization gets sorted out for her to start the Ozempic injections. Pt was encouraged to continue incorporating balanced options into her diet and drinking plenty of water for hydration. Pt was encouraged to continue daily walks for activity as tolerated for added benefit. Chronic kidney disease, stage 3b Labs wi ll be drawn today and reviewed personally to evaluate efficacy of current medication regimen. Pt was advised to stop Furosemide and start taking Triamterene-HCTZ. Pt was encouraged to continue consuming adequate water and ensuring she is staying well hydrated. Pt was encouraged to continue daily walks for activity as tolerated. Pt was encouraged to continue supportive care measures for her peripheral edema complaints. Pt was encouraged to keep and attend her appointment with Bark Skinner on Jun 06. Osteoporosis screening Pt will be contac juan by scheduling personal to set up an appointment for her DEXA scan. Pt was encouraged to continue taking her medications as prescribed. Immunization(s) administered Flu shot wa s administered and tolerated well. Hypomagnesemia Labs will be drawn t sundar and reviewed personally to evaluate efficacy of current medication regimen. Pt will be contacted with the results and adjustments made to her medication dosing accordingly. Pt was encouraged to continue her medication until then and lifestyle modifications to diet. Pending Test Test Name Order Date DEXA VERTEBRAL FX ASSESS 05/25/2025 Next Appt Details Follow Up: prn, Reason: Provider Name:Heladio Palm, 06/22/2025 12:15:00 PM, [address] [place] [address], [id number], Progress Notes * Karo VELAZQUEZOB:[birth year] (75 yo F)Acc No.[id number]:05/25/2025 Progress Notes Patient: Mirtha LOMAX Provider: Haritha Palm MD :1950 A ge:75 Y S ex:Female Date:05/25/2025 Address:[address] [place], [place] [id number] Subjective: * Chief Complaints: * 1 . Med ck. 2. Labs - is fasting. 3. Flu shot. * HPI: g en: Gen [age]yo female comes in for medication check. Pt explains she was recently hospitalized due to cardiac complications. Pt explained she was at home and had an episode of a-fib. Pt went to [facility] ER and was moving between a-fib and a-flutter. Pt explains she was given a medication to correct the arrythmia. Her magnesium levels were assessed and found to be low. Pt was administered Magnesium and sent home. Pt called EMS 20-30 minutes later and brought her back for arrythmia concerns. Pt was admitted for 2 days. Pt explains a lot of her medications were changed around. Pt was started on a large dose of Diltiazem in the hospital and dosing was reduced to 180mg by her marketing outreach coordinator a week later due to difficulty with getting a deep breath in. Pt explains this change had minimal effect on her breathing difficulty. Pt explains she has had several episodes of light-headedness but denies any falls. Pt has an appointment for an atrial watchman implantation on May 30. Pt requested her magnesium levels to be checked today to ensure they are adequate prior to the . Pt explains she was taken off of her Triamterene-HCTZ while in the hospital and switched to Furosemide. Pt explains she has been having consistent leg swelling since the switch and is becoming bothered by this. Pt denies any change in her urinary habits and denies pain/burning/difficulty with urination. Pt will see her Bark Skinner on Jun 06 for evaluation. At last visit, a DEXA scan was ordered and pt explained she had to cancel her appointment given her cardiac concerns at the time. Pt requested a re-referral to reschedule the scan. Pt explains her dental abscess has been going well and had temporary crowns placed 3 days ago. Pt will follow-up with them in 3 weeks for permanent crowns. Pt explained her DELL has been going alright on her CPAP. Pt has not started the Ozempic due to pre- authorization issues. Pt was offered and accepted a flu shot today. Pt has no other concerns. . 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 * Family History: F [...] iblings: alive, HTN. C joel: alive, son- [place]- CAD. 1 sister(s) - healthy. 3 son(s) [...] no. Occupation: retired. * Medications: T aking Furosemide 40 MG Tablet 1 tablet Orally Once a day , Taking dilTIAZem HCl 180 MG Capsule Extended Release 24 Hour 1 capsule Orally Once a day , Taking Biotin 1000 MCG [...] TABLET BY MOUTH ONCE DAILY , Taking Ozempic (0.25 or 0.5 MG/DOSE) 2 MG/3ML Solution Pen-injector 0.25mg Subcutaneous weekly , Notes to Pharmacist: has not started, Taking Clopidogrel Bisulfate 75 MG Tablet TAKE 1 TABLET BY MOUTH ONCE DAILY , Taking Atorvastatin Calcium 40 MG Tablet TAKE 1 TABLET BY MOUTH ONCE DAILY , Taking Carvedilol 12.5 MG Tablet 1 tab Twice a day , Taking Pantoprazole Sodium 40 MG Tablet Delayed Release TAKE 1 TABLET BY MOUTH ONCE DAILY , Discontinued HYDROcodone-Acetaminophen 5-325 MG Tablet 1 tablet as needed Orally every 6 hrs , Discontinued Clindamycin HCl 300 MG Capsule 1 capsule Orally every 12 hrs , Discontinued amLODIPine Besylate 2.5 MG Tablet 1 tab(s) orally once a day , Discontinued Zinc 50 MG Tablet 1 tab(s) orally once a day , Discontinued Triamterene-HCTZ 37.5-25 MG Capsule TAKE 1 CAPSULE BY MOUTH ONCE DAILY , Discontinued Diflucan 150 MG Tablet 1 tablet Orally daily , Discontinued Diflucan 150 MG Tablet 1 tablet Orally daily , Medication List reviewed and reconciled with the patient * Allergies: P enicillin: anaphylaxis - Allergy, IV CONTRAST: Allergy, SULFA DRUGS: Allergy, Codeine: Allergy, Cipro: tingling lips and tongue - Allergy, DECONGESTANTS: Allergy. Objective: * Vitals: N urse: dw, Pain: 3, Temp: 98, RR: 20, HR: 72, BP: 126/62, Ht: 5 ft 3 in, Wt: 234, BMI:41.45. * Examination: G eneral Examination: General P leasant and Cooperative, NAD on RA,. Chest: n ormal shape and expansion. Heart: R egular Rate and Rhythm, no murmur, rubs or gallops. Lungs: L CTAB, No wheezes, crackles or rhonchi, Good air movement,. Abdomen: S oft, NTND, BSNA, No organomegaly or peritoneal signs.. Neurologic Exam: n o focal signs,, normal sensation, strength, tone and reflexes,, Alert and oriented x 3. Peripheral pulses: n ormal (2+) bilaterally. Extremities: n ormal ROM,, no clubbing, mild edema in LE,, no foot lesions,. General Appearance: N AD, pleasant. Assessment: * Assessment: 1. T ype 2 diabetes mellitus with diabetic chronic kidney disease - E11.22 (Primary) 2 . C hronic kidney disease, stage 3b - N18.32 3 . O steoporosis screening - Z13.820 4 . I mmunization(s) administered - Z23 5 . H ypomagnesemia - E83.42 Plan: * Treatment: Value Reference Range G LUCOSE 177 H 65-99 - mg/dL * U ALL NITROGEN (BUN) 26 H 7-25 - mg/dL * C REATININE 1.24 H 0.60-1.00 - mg/dL * B UN/CREATININE RATIO 21 6-22 - (calc) * S ODIUM 142 135-146 - mmol/L * P OTASSIUM 4.0 3.5-5.3 - mmol/L * C HLORIDE 101 98-110 - mmol/L * C ARBON DIOXIDE 30 20-32 - mmol/L * C ALCIUM 10.3 8.6-10.4 - mg/dL * E GFR 45 L > OR = 60 - mL/min/1 .73m2 * This lab was reviewed by Dhruv Palm on 05/26/2025 at 09:39 AM EDT ?LAB: MAGNESIUM (622)* Value Reference Range M AGNESIUM 1.6 1.5-2.5 - mg/dL * This lab was reviewed by Dhruv Palm on 05/26/2025 at 09:39 AM EDT ?LAB: HEMOGLOBIN A1c (496)* Value Reference Range H EMOGLOBIN A1c 7.1 H <5.7 - % * This lab was reviewed by Dhruv Palm on 05/26/2025 at 09:39 AM EDT Notes: Labs will be drawn today and reviewed personally to evaluate efficacy of current medication regimen. Last A1c was 7.9 on 03/02. Pt will be contacted when pre-authorization gets sorted out for her to start the Ozempic injections. Pt was encouraged to continue incorporating balanced options into her diet and drinking plenty of water for hydration. Pt was encouraged to continue daily walks foractivity as tolerated for added benefit. ??2.?Chronic kidney disease, stage 3b?LAB: BASIC METABOLIC PANEL (43025)* Value Reference Range G LUCOSE 177 H 65-99 - mg/dL * U ALL NITROGEN (BUN) 26 H 7-25 - mg/dL * C REATININE 1.24 H 0.60-1.00 - mg/dL * B UN/CREATININE RATIO 21 6-22 - (calc) * S ODIUM 142 135-146 - mmol/L * P OTASSIUM 4.0 3.5-5.3 - mmol/L * C HLORIDE 101 98-110 - mmol/L * C ARBON DIOXIDE 30 20-32 - mmol/L * C ALCIUM 10.3 8.6-10.4 - mg/dL * E GFR 45 L > OR = 60 - mL/min/1 .73m2 * This lab was reviewed by Dhruv Palm on 05/26/2025 at 09:39 AM EDT ?LAB: MAGNESIUM (622)* Value Reference Range M AGNESIUM 1.6 1.5-2.5 - mg/dL * This lab was reviewed by Dhruv Palm on 05/26/2025 at 09:39 AM EDT ?LAB: HEMOGLOBIN A1c (496)* Value Reference Range H EMOGLOBIN A1c 7.1 H <5.7 - % * This lab was reviewed by Dhruv Palm on 05/26/2025 at 09:39 AM EDT Notes: Labs will be drawn today and reviewed personally to evaluate efficacy of current medication regimen. Pt was advised to stop Furosemide and start taking Triamterene-HCTZ. Pt was encouraged to continue consuming adequate water and ensuring she is staying well hydrated. Pt was encouraged to continue daily walks for activity as tolerated. Pt was encouraged to continue supportive care measures for her peripheral edema complaints. Pt was encouraged to keep and attend her appointment with Bark Skinner on Jun 06. ??3.?Osteoporosis screening?Imaging: DEXA VERTEBRAL FX ASSESS* Notes: Pt will be contacted by scheduling personal to set up an appointment for her DEXA scan. Pt was encouraged to continue taking her medications as prescribed. ??4.?Immunization(s) administered? Notes: Flu shot was administered and tolerated well. ??5.?Hypomagnesemia?LAB: BASIC METABOLIC PANEL (01415)* Value Reference Range G LUCOSE 177 H 65-99 - mg/dL * U ALL NITROGEN (BUN) 26 H 7-25 - mg/dL * C REATININE 1.24 H 0.60-1.00 - mg/dL * B UN/CREATININE RATIO 21 6-22 - (calc) * S ODIUM 142 135-146 - mmol/L * P OTASSIUM 4.0 3.5-5.3 - mmol/L * C HLORIDE 101 98-110 - mmol/L * C ARBON DIOXIDE 30 20-32 - mmol/L * C ALCIUM 10.3 8.6-10.4 - mg/dL * E GFR 45 L > OR = 60 - mL/min/1 .73m2 * This lab was reviewed by Dhruv Palm on 05/26/2025 at 09:39 AM EDT ?LAB: MAGNESIUM (622)* Value Reference Range M AGNESIUM 1.6 1.5-2.5 - mg/dL * This lab was reviewed by Dhruv Palm on 05/26/2025 at 09:39 AM EDT ?LAB: HEMOGLOBIN A1c (496)* Value Reference Range H EMOGLOBIN A1c 7.1 H <5.7 - % * This lab was reviewed by Dhruv Palm on 05/26/2025 at 09:39 AM EDT Notes: Labs will be drawn today and reviewed personally to evaluate efficacy of current medication regimen. Pt will be contacted with the results and adjustments made to her medication dosing accordingly. Pt was encouraged to continue her medication until then and lifestyle modifications to diet. ? * Immunizations: Fluzone High Dose : 0.7 mL (Route: Intramuscular) given by MEGHA Islas on Left Deltoid (Immunization(s) administered) * Procedure Codes: 9 0662 Influenza High Dose Vaccine >65 Years Old, Units: 1.40 , G0008 ADMINISTRATION-FLU VACCINE MEDICARE ONLY, G2211 Complex e/m visit add on * Follow Up: p rn * * Sign off status: Completed true * Provider: Haritha Palm MD Date: 0 05/25/2025 Generated for Maggy shine/Tila/eTransmitting on: 0 06/01/2025 03:59 PM EDT History and Physical Notes * HPI (History of Present Illness) Category Sub-Category Detail Notes Category Not es gen Gen 75yo female come s in for medication check. Pt explains she was recently hospitalized due to cardiac complications. Pt explained she was at home and had an episode of a-fib. Pt went to [facility] ER and was moving between a-fib and a-flutter. Pt explains she was given a medication to correct the arrythmia. Her magnesium levels were assessed and found to be low. Pt was administered Magnesium and sent home. Pt called EMS 20-30 minutes later and brought her back for arrythmia concerns. Pt was admitted for 2 days. Pt explains a lot of her medications were changed around. Pt was started on a large dose of Diltiazem in the hospital and dosing was reduced to 180mg by her marketing outreach coordinator a week later due to difficulty with getting a deep breath in. Pt explains this change had minimal effect on her breathing difficulty. Pt explains she has had several episodes of light-headedness but denies any falls. Pt has an appointment for an atrial watchman implantation on May 30. Pt requested her magnesium levels to be checked today to ensure they are adequate prior to the . Pt explains she was taken off of her Triamterene-HCTZ while in the hospital and switched to Furosemide. Pt explains she has been having consistent leg swelling since the switch and is becoming bothered by this. Pt denies any change in her urinary habits and denies pain/burning/difficulty with urination. Pt will see her Bark Skinner on Jun 06 for evaluation. At last visit, a DEXA scan was ordered and pt explained she had to cancel her appointment given her cardiac concerns at the time. Pt requested a re-referral to reschedule the scan. Pt explains her dental abscess has been going well and had temporary crowns placed 3 days ago. Pt will follow-up with them in 3 weeks for permanent crowns. Pt explained her DELL has been going alright on her CPAP. Pt has not started the Ozempic due to pre-authorization issues. Pt was offered and accepted a flu shot today. Pt has no other concerns. Examination Category Sub-Category Detail Notes Category Not es General Examination Heart: Regular Rate and Rhythm, no murmur, rubs or gallops Lungs: LCTAB, No wheezes, c rackles or rhonchi, Good air movement, Abdomen: Soft, NTND, BSNA, No organomegaly or peritoneal signs. Extremities: normal ROM,, no club howie, mild edema in LE,, no foot lesions, General Appearance: NAD, pleasant Neurologic Exam: no focal signs,, nor mal sensation, strength, tone and reflexes,, Alert and oriented x 3 Peripheral pulses: normal (2+) bilatera lly Chest: normal shape and exp ansion General Pleasant and Coopera tive, NAD on RA,
--- OUTSIDE RECORDS SUMMARY | 2025-05-30 08:00 | XMS_ITS | Encounter Summary ---
Author Organization [facility] Address [address] [id number] Care Team Providers Care Manager Customer Name Role Phone Heladio Palm MD Primary Care Provider + [phone] Reason for Visit * Auth/Cert (Routine) Specialty Diagnoses / Procedures Referred By Contac t Referred To Contact Diagnoses Paroxysmal atrial fibrillation (CMS/HCC) Paroxysmal atrial fibrillation (CMS/HCC) [I48.0] Procedures [place] PERQ CLSR TCAT L ATR APNDGE W/ENDOCARDIAL IMPLNT Left atrial appendage closure (transvenous) Bryan Allen MD [address] [place] [address] Phone: tel: fax: [facility] [address] [place] [address] Phone: tel: Referral ID Status Reason Start Date Expiration Date Visits Re quested Visits Authorized [id number] 1 1 Encounter Details Date Type Department Care Team (Latest Contact Info) Description 05/30/2025 8:00 AM EDT - 05/30/2025 4:43 PM EDT Hospital Encounter [facility] [address] [place] [address] Bryan Allen MD [address] [place] [address] Paroxysmal atrial fibrillation (CMS/HCC) Discharge Disposition: Home or Self Care Social [...] Sign Reading Time Taken Comments Blood Pressure 156/67 05/30/2025 4:00 PM EDT Pulse 63 05/30/2025 4:00 PM EDT Temperature 36.6 C (97.8 F) 05/30/2025 12:03 PM EDT Respiratory Rate 17 05/30/2025 4:00 PM EDT Oxygen Saturation 92% 05/30/2025 4:00 PM EDT Inhaled Oxygen Concentration - - Weight 106 kg (233 lb 4 oz) 05/30/2025 8:38 AM E DT Height 154.9 cm (5' 1 ) 05/30/2025 8:38 AM EDT Body Mass Index 44.07 05/30/2025 8:38 AM EDT documented in this encounter Functional Status [...] 04/24/2025 1:50 PM EDT Nola Sher * Calculated C-SSRS Risk Score (Lifetime/Recent) Answer Date of Assessment Author No Risk Indicated 05/30/2025 8:38 AM EDT Irina Reyna RN * How difficult have these problems made it for you to do your work, take care of things at home, or get along with other people? Answer Date of Assessment Author Not difficult at all 04/24/2025 1:50 PM EDT Nola Morgan * Question Answer Date of Assessment Author 1. Wish to be (Past 1 Month) No 025 8:38 AM EDT Zack Reyna RN 2. Non-Specific Active Suici thong Thoughts (Past 1 Month) No 05/30/2025 8:38 AM EDT Zack Reyna RN 6. Suicidal Behavior (Lifetime) No 8:38 AM THELMAT Zack Reyna RN documented as of this encounter Discharge Instructions * Discharge Instructions* Pollo Phillips APRN - 05/30/2025 12:27 PM EDT Discharge Instructions/Restrictions: Activity & Incision Instructions: For 1 week, do not lift anything heavier than 10 pounds (about the weight of a gallon of milk). Do not drive for 24 hours after procedure. You can shower within the next 24 hours. Do not submerge your incision in water. No tub baths, hot tubs or swimming pools for 7-10 days. If your incision has a dressing over it, you may remove those later today and shower. You do NOT need to place a new dressing over it. It will heal from the inside out. Every day, check the area around your incision site for signs of infection or problems. Call the Structural team at if your incision is red, warm or oozing green or yellow drainage. Or if you develop a fever > 100.4. If it is after hours, call Medication Instruction: PLAVIX PROTOCOL You will be on aspirin 81mg daily + Plavix 75mg daily for the next 6 months Complete follow-up CT scan at 45 days IF THERE IS NO EVIDENCE OF LEAK AROUND YOUR DEVICE ON YOUR CT SCAN, then after 6 months of the above therapy, we will STOP Plavix 75mg daily and decrease to ASPIRIN 81mg daily ONLY. You will continueon aspirin 81mg daily for life. Take medication exactly as instructed. Antibiotics are required prior to ALL dental visits for 6-12 months (see attached sheet below). Follow up: You will have a CT scan and follow up appointment with the Structural team in 45 days. If you have not received a follow up appointment at the time of discharge, they will be in contact with you in the next few days via phone or mail reminder. If you do not hear from someone within 3-5 days, call the Structural Clinic at . Antibiotic Prophylaxis prior to dental procedure: The following information is obtained directly from the [place] [employer]. https://www.heart.org/en/health-topics/infective-endocarditis What is Infective Endocarditis? Infective endocarditis (IE), also called bacterial endocarditis, is an infection caused by bacteriathat enter the bloodstream and settle in the heart lining, a heart valve or a blood vessel. IE is uncommon, but people with some heart conditions have a greater risk of developing it. Risk factors for developing IE include: - Heart valve disease. - Previous heart valve surgery. - Congenital heart disease. - Intravenous drug use. - Previous history of IE. Dental Procedures and Infective Endocarditis People with the highest risk for poor outcomes from IE may be prescribed antibiotics (IE prophylaxis) prior to certain dental procedures to reduce their risk of developing it. These include procedures that involve manipulation of gingival (gum) tissue or the periapical region (area around the roots) of teeth, or perforation of the oral mucosa. Antibiotic prophylaxis is reasonable before the above-mentioned dental procedures for people with heart valve disease who have any of the following: - Prosthetic cardiac valves, including transcatheter-implanted prostheses and homografts. - Prosthetic material used for heart valve repair, such as annuloplasty rings, chords or clips. - Previous IE. - Unrepaired cyanotic congenital heart defect ( defects with oxygen levels lower than normal) or repaired congenital heart defect, with residual shunts or valvular regurgitation at the site adjacent to the site of a prosthetic patch or prosthetic device. - Cardiac transplant with valve regurgitation due to a structurally abnormal valve. - Except for the conditions listed above, antibiotic prophylaxis before dental procedures is not recommended for any other types of congenital heart disease. In addition, antibiotic prophylaxis is not recommended for patients with valvular heart disease whoare at high risk of IE for nondental procedures (e.g., JOSE, esophagogastroduodenoscopy, colonoscopy, or cystoscopy) in the absence of active infection. You can reduce the risk of IE by maintaining good oral health through regular professional dental care and the use of dental products such as manual, powered and ultrasonic toothbrushes; dental floss; and other plaque-removal devices. Please see table below for antibiotic prophylactic regimen options. Single dose regimen 30-60 minutes prior to dental procedure. Situation Agent Dose Oral Amoxicillin 2g Unable to take oral medication (choose one) Ampicillin Cefazolin or ceftriaxone 2g IM or IV 1g IM or IV Allergic to penicillin or ampicillin - Oral regimen (choose one) Cephalexin Azithromycin or clarithromycin Doxycycline 2g 500 mg 100 mg Allergic to penicillin and ampicillin and unable to take oral medication (choose one) Cefazolin or ceftriaxone 1g IM or IV Please note that clindamycin is no longer recommended for antibiotic prophylaxis for a dental procedure. documented in this encounter Medications at Time of Discharge acetaminophen (Tylenol 8 Hour) 650 MG ER tablet Take 1 tablet by mouth every 8 hours as needed for mild pain. Do not crush, chew, or split. aspirin 81 MG EC tablet Take 1 tablet by mouth daily. 05/30/2025 05/30/2026 atorvastatin (Lipitor) 80 MG tabletIndications :Coronary artery disease involving havasupai coronary artery of havasupai heart without angina pectoris TAKE 1 TABLET BY MOUTH 1 TIME EACH DAY. 90 tablet 3 01/14/2023 biotin 1000 MCG tablet 1 (one) time each day at the same time. carvedilol (Coreg) 25 MG tablet TAKE 1 TABLET BY MOUTH TWICE A DAY FOR 30 DAYS 04/17/2022 cholecalciferol (Vitamin D3) 25 MCG (1000 UT) tablet Take 1 tablet by mouth daily. clopidogrel (Plavix) 75 MG tablet Take 1 tablet by mouth daily. 07/01/2022 dapagliflozin (Farxiga) 10 MG tablet Take 1 tablet by mouth daily. dilTIAZem CD (Cardizem CD) 240 MG 24 hr capsule Take 1 capsule by mouth nightly. 04/14/2025 fexofenadine (Manju) 180 MG tablet Take 1 tablet by mouth daily. furosemide (Lasix) 40 MG tablet Take 1 tablet by mouth daily. 04/18/2025 levothyroxine (Synthroid, Levoxyl) 100 MCG tablet Take 1 tablet by mouth daily. 03/01/2022 magnesium oxide (Mag-Ox) 400 (240 Mg) MG tablet Take 1 tablet by mouth daily. venlafaxine (Effoxor) 100 MG tablet Take 1 tablet by mouth daily. 04/19/2022 documented as of this encounter Miscellaneous Notes * Nursing Note - Zack Reyna RN - 05/30/2025 4:41 PM EDT Patient received verbal and written discharge teaching and verbalized understanding with daughter Caitlyn and son at bedside. Patient was able to ambulate and void prior to discharge. Right groin siteis clean, dry, and intact without any signs of bleeding or hematoma. Vital signs were within normallimits prior to discharge. All PIVs were removed prior to discharge. Patient was transported by myself via wheelchair to be driven home by son. * Aftab On[facility] - Zack Reyna RN - 05/30/2025 3:57 PM EDT Images from the original note were not included. [id number] Bleeding or Hematoma After Cardiac Catheterization You recently had cardiac catheterization. A catheter was put into your body through a puncture of an artery in your groin or arm. You might have bleeding from this site. When bleeding occurs, it may drip or spurt from the site. Or it may collect in a lump (hematoma) under the skin. This often needsurgent evaluation in an emergency room. First put direct pressure on the site, and call 911 [facility]. In the emergency room, more pressure will be put on the site to stop bleeding. You may be sent home if the bleeding can be controlled and you are feeling well enough. To prevent repeat bleeding, take some precautions at home. If the bleeding starts again, follow the advice below. Home care For the next 48 hours: ? Don't do any strenuous activity. ? Don't climb any stairs if possible. ? Don't lift anything greater than 5 pounds. ? If the puncture site is in your arm or wrist, don't lie on that arm. ? If your puncture site is in the groin, don't strain at bowel movements. ? Don't scrub the site when bathing. It's fine to get it wet after your health care provider says it's okay, but don't scrub it or massage it. Don't take a tub bath for 3 days after the procedure. ? Don't drive for the next 48 hours. If bleeding happens again, call 911. Take the following steps to stop the bleeding until help arrives: ? Lie on your back. ? Place a clean cloth or gauze pad over the puncture site. Then hold firm pressure right on the site. Or have someone else apply firm pressure using the gauze pad or washcloth. ? If the site is in your arm or wrist, keep your arm straight and raised above the level of your heart. If the site is in your groin, have someone else hold pressure on the site. ? Don't press too hard! If you press too hard, your leg and foot (or arm and hand) will not get blood flow, and the skin under your toenails or fingernails may turn white. The skin should look pink, like the toenails on your other foot. When the toenail is pressed, it will turn white, but when you stop pressing on the nail it will turn pink again. This is called capillary refill. If there is someone with you, they can check it. ? If your toes, foot, or leg start feeling numb, tingly, or cold, ease up on the pressure. You are probably pressing too hard. ? As soon as emergency care arrives, they will take over your care. Follow-up care Follow up with your health care provider, or as advised. Ask your provider for a contact number to call. Call 911 Call 911 if any of these occur: ? Chest pain or pressure ? Any bleeding from the site ? Feeling weak or faint ? Trouble breathing ? Lump (hematoma) is quickly getting larger ? Coolness, numbness, tingling, or skin color changes in the leg or arm with the puncture site When to get medical advice Contact your health care provider or get medical care right away if you have: ? Increased pain, redness, swelling, or drainage from the puncture site. ? Nausea or vomiting. ? A fever of 100.4??F (38??C) or higher, or as directed by your provider. Last Reviewed Date: 2024 00:00:00 ?? [id number] [employer]. All rights reserved. This information is not intended as a substitute for professional medical care. Always follow your healthcare professional's instructions. * Aftab Hernandez - Zack Reyna RN - 05/30/2025 3:57 PM EDT 1092 Left Atrial Appendage Closure Why do I need this? You have atrial fibrillation (or A-Fib). This means you are at high risk to develop blood clots in your heart. That?s because A-Fib causes your heart to beat irregularly, which affects its ability topump blood normally. When the heart does not pump blood as it should, blood can collect and form clots. If a clot escapes, it can cut off the blood supply to the brain and cause a stroke. This is not the best treatment for everyone. Your doctor will help you decide the best treatment for you. What is a left atrial appendage closure device? It is often called a Watchman or Amulet. It is implanted in your heart to prevent blood clots. Thiswill lower your risk of stroke. This device does not treat the A-Fib. It does take the place of a terminal gauger blood thinner to prevent a stroke. What will happen during the procedure? ? The procedure is done in the catheterization lab. ? You will be in the procedure room 2-3 hours. You may be asleep the whole time. ? Your doctor will insert a flexible tube (catheter) through a vein from the groin. ? The catheter will be threaded through your vein into your heart. ? Your doctor will use the catheter to place the new device inside your heart. What will happen after the procedure? ? You will go to a recovery room. We will keep close watch on you during this time. ? You will get out of bed with help after 4-6 hours. ? You should be able to go home the same day. ? You may have a little swelling near the incision, feeling like a small knot. This may last 2-3 weeks. What will I need to do at home? ? You will need to clean the incision. You should wash the puncture site gently with soap and water. Avoid scrubbing the site. ? You may take a shower when you go home. Do not take a tub baths, swim or soak in water for 7-10 days. ? Do not lift more than 10 pounds for 1 week. ? You may walk up and down steps. ? Do not drive until your doctor says it is ok. ? Keep all follow-up appointments. ? Take medicines as ordered by your doctor. Take them until your doctor tells you to stop. This mayinclude taking a blood thinner. ? You may need to continue having your INR levels checked if you are on Warfarin (Coumadin). What should I tell my other health care providers? ? Tell all your doctors and dentists about left atrial appendage device. ? Before you have an MRI, tell the staff about your device. When should I call my doctor? Call your doctor if you have any of these: ? Swelling gets worse ? Fever of more than 101??F ? Area near the incision feels hot to touch, or looks red or dark pink ? Area near the incision feels more tender or sore to touch ? Incision drains fluid that smells bad ? Vision change ? Change in you sense of touch or feel ? Face, arm, or leg feels numb or tingles ? Very bad headache ? Any return of bleeding * H&P - Vitaliy Sykes PA - 05/30/2025 9:13 AM EDT Images from the original note were not included. Cardiology History and Physical History of Present Illness Mirtha Barrios is a 75 y.o. female who presents for Watchman implant with Dr. Allen. Patient's medical history is significant for PAF, HTN, DM, IgA Vasculitis (2007), CKD, CAD s/p LAD PCI (2021), Renal hemorrhage on Xarelto Ms. Barrios has a history of renal hemorrhage with h/o RP bleed while on Xarelto. Sheh has not been onanticoagulation since that time and had admission to OSH 04/13/2025 for palpitations, found to be in Aflutter and Afib with RVR. EP consulted and started patient on Diltiazem. DOAC avoided due to RP bleed. Plavix 75mg daily, Diltiazem ER 240mg and Coreg 12.5mg (decreased with soft pressures) continued at discharge and patient referred for Watchman. Patient meets criteria for Watchman Left Atrial Occluder closure device according to the CMS National Coverage Decision.? Case data will be extracted and entered into the NCDR Clinical Registry/CMS Research as required by the [facility].? NCT#[id number] She did take Plavix this a.m. and is NPO for the procedure. She denies recent illness or overt signs of GI bleeding. Past 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 Past 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[1] Surgical History Surgical History[2] Family History Reviewed and non-contributory. Social History Tobacco use: denies Alcohol use: Denies any significant recent usage. Other: Denies illicit drug use. Allergies: Allergies[3] Home Medications: reconciled in [facility] Hospital Medications: Current Scheduled Medications[4] Current Continuous Medications[5] Current PRN Medications[6] Review of Systems: A complete 14 point ROS were reviewed and all were negative except what is detailed above. Objective: All Laboratory and vital signs data personally reviewed unless otherwise noted. VITALS Visit Vitals BP (!) 178/73 Pulse 73 Temp 36.8 ??C (98.2 ??F) (Oral) Ht 1.549 m (5' 1 ) Wt 106 kg (233 lb 4 oz) SpO2 93% BMI 44.07 kg/m?? MEDICATIONS Current Scheduled Medications[7] Current Continuous Medications[8] Current PRN Medications[9] LABS: will be reviewed when available Physical Exam GENERAL: very pleasant obese female Resting comfortably in cath holding area- stretcher HEAD: Atraumatic & normocephalic EYES: PERRLA. No scleral icterus EARS: Normal hearing NOSE: Nares patent. THROAT/MOUTH: Moist mucous membranes NECK: Supple. Nontender. No JVD. The trachea appears midline. LUNGS/CHEST: Breath sounds clear throughout. Bilateral chest excursion noted. No retractions. CARDIAC: RRR, S1S2. No murmur, rubs, or gallop. VASCULAR: Capillary refill <2 seconds. Palpable radial pulses noted bilaterally. Palpable DP andPT pulses noted bilaterally. Extremities: No edema. No cyanosis or clubbing. GI: Abdomen soft, nontender, nondistended. SKIN: No rash of exposed extremities NEURO: Awake and oriented x3. Moves all extremities with purpose. PSYCH: Cooperative with care. Mood & affect congruent and appropriate to situation. Assessment and Plan # PAF with RVR # PAFlutter with RVR # Intolerance to long-term anticoagulation - ChadsVasc: 6 - Intolerant to DOAC due to renal hemorrhage and RP bleed while on Xarelto - Recent admission 04/2025 with AF and Aflutter with RVR - Currently on Plavix 75mg daily- last dose this a.m. 05/30/25 Plan: - NPO for Watchman with Dr. Allen - Limited Echo post procedure to evaluate for pericardial effusion - Antiplatelet plan pending - Follow up in [address] scan to evaluate watchman The following cardiovascular risk factors and co-morbidities complicates the management of these conditions: none Code Status: FULL Plan of Care developed with Bryan Allen MD, Cardiology Attending Vitaliy Sykes PA-C [phone] [1] Past 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: Diagnosis Date Allergic purpura (CMS/HCC) Henoch-Schonlein purpura Allergic rhinitis Allergy to metal 1966 Anemia Arrhythmia 1975 Asthma Childhood 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 Mukherjee's esophagus Bronchiectasis Childhood Cataract CHF (congestive heart failure) (CMS/HCC) COPD (chronic obstructive pulmonary disease) (CMS/HCC) 2009 Coronary artery disease 2009 Diabetes mellitus (CMS/HCC) 2015 Diabetic nephropathy (CMS/HCC) GERD (gastroesophageal reflux disease) 1989 History of transfusion 1966 Hypertension 1997 Hypothyroidism, unspecified Subclinical hypothyroidism Insomnia Liver disease Other diseases of pharynx Throat irritation Panic disorder (episodic paroxysmal anxiety) Panic disorder without agoraphobia Peripheral neuropathy 2013 Personal history of nephrotic syndrome History of primary iga nephropathy Personal history of other diseases of the digestive system History of acute cholecystitis Personal history of other diseases of the musculoskeletal system and connective tissue History of osteoarthritis Personal history of other diseases of the respiratory system History of chronic bronchitis Snoring [2] Past Surgical History: Procedure Laterality Date BLADDER SURGERY N/A Bladder Surgery from [facility] CARDIAC CATHETERIZATION June 2022 CATARACT EXTRACTION N/A Cataract Extraction from [facility] CHOLECYSTECTOMY N/A 2013 Cholecystectomy from [facility] HYSTERECTOMY N/A 1987 Hysterectomy from [facility] INTRAOCULAR LENS INSERTION KIDNEY SURGERY bleeding from kidney, fixed in IR OTHER SURGICAL HISTORY N/A Biopsy Skin from [facility] TOTAL ABDOMINAL HYSTERECTOMY N/A Total Abdominal Hysterectomy from [facility] [3] Allergies Allergen Reactions Codeine Anaphylaxis, Nausea, Unknown - Patient states they do not know rxn details and Other - please document in the comment field Gadolinium Derivatives Shortness of breath Iodinated Contrast Media Shortness of breath Iv Contrast Anaphylaxis and Unknown - Patient [...] in the comment field caused spontaneous bleed Trimethoprim Other - please document in the comment field [4] vancomycin, 15 mg/kg (Order-Specific), Intravenous, Once [5] [6] PRN medications: Insert peripheral IV AND Saline lock IV AND sodium chloride AND sodium chloride [7] vancomycin, 15 mg/kg (Order-Specific), Intravenous, Once [8] [9] PRN medications: Insert peripheral IV AND Saline lock IV AND sodium chloride AND sodium chloride * Hospital Course - Pollo Phillips APRN - 05/25/2025 1:28 PM EDT Mirtha Barrios is a 75 year old female who is now s/p Watchman implant with Dr. Allen on 05/30/2025. Past medical history significant for PAF, CAD s/p PCI to LAD (2021), HTN, DM2, CKD, renal hemorrhage on Xarelto, Iga vasculitis (2007), morbid obesity. Patient meets criteria for Watchman Left Atrial Occluder closure device according to the CMS National Coverage Decision.? Case data will be extracted and entered into the NCDR Clinical Registry/CMS Research as required by the [facility].? NCT#[id number] Cardiac Diagnostics: Echo - 04/2025 at OSH: Normal biventricular systolic function, mild RV dilation, mild biatrial dilation,mild TR - 05/30/2025: Cardiac Procedures: Watchman - 05/30/2025: Successful percutaneous left atrial appendage occlusion with a 24 mm Watchman FLX Pro device. Dr. Bryan Allen, [facility]. # Paroxysmal Atrial Fibrillation and Flutter - CHADSVASC score 6 (age, sex, HTN, CAD, DM). - Intolerant to DOAC due to renal hemorrhage and RP bleed while on Xarelto - Recent admission 04/2025 with AF and AFL with RVR. - Home medication: Plavix 75 mg PO daily. Plan: - Now s/p Watchman with Dr. Allen on 05/30. - Post-op echo: . - Medication plan: -- ASA 81 mg PO daily. -- Plavix 75 mg PO daily. - Follow up in [address] scan to evaluate device. documented in this encounter Plan of Treatment Upcoming Encounters Date Type Department Care Team (Late st Contact Info) Description 06/05/2025 4:00 PM EDT Office Visit [facility] [place] [facility] [address], [address] [place] [address] 07/19/2025 1:20 PM EST Appointment [facility] [address] [place] [address] 07/26/2025 4:00 PM EST Office Visit [facility] [place] [address], [address] [place] [address] Svetlana Olguin PA [address] [place] [address] 08/14/2025 1:30 PM EST Office Visit [facility] [address] [place] [address] 01/26/2026 11:00 AM EDT Office Visit [facility] [address] [place] [address] Luis Olivares MD [address] [place] [phone] documented as of this encounter Procedures Procedure Name Priority Date/Time Associated Diagnosis Comments ECHO, ADULT TRANSESOPHAGEAL INTRAPROCEDURAL W/ 3D Routine 05/30/2025 4:17 PM EDT ECHO, ADULT TRANSTHORACIC LIMITED Routine 05/30/2025 3:25 PM EDT LEFT ATRIAL APPENDAGE CLOSURE (TRANSVENOUS) Routine 05/30/2025 11:49 AM EDT Paroxysmal atrial fibrillation (CMS/HCC) POCT CREATININE ISTAT UNSOLICITED RESULTS Routine 05/30/2025 9:01 AM EDT CBC W/O DIFFERENTIAL STAT 05/30/2025 8:57 AM EDT MAGNESIUM, PLASMA STAT 05/30/2025 8:5 7 AM EDT BASIC METABOLIC PANEL, PLASMA STAT 05/30/2025 8:57 AM EDT documented in this encounter Results * ECHO, ADULT TRANSESOPHAGEAL INTRAPROCEDURAL W/ 3D (05/30/2025 4:17 PM EDT) [facility] BSA 2.13 m2 CASSIDY ISCV Height 155 CASSIDY ISCV Weight 106 CASSIDY ISCV Ao Root Diam 29 mm CASSIDY ISCV Anatomical Region Laterality Modality Echocardiography Narrative 05/31/2025 8:58 AM EDT JOSE guidance for Watchman Device placement. Left Atrium: The left atrium is dilated by visual assessment. The left atrial appendage was evaluated in multiple views and there is no thrombus seen. The maximal diameter of the atrial appendage diameter is 18 mm. A 24 mm left atrial appendage occluder device was placed. It appears normal on 2D, 3D and color Doppler imaging with no leak noted. The interatrial septum is intact with no evidence for an atrial septal defect. Echo guided imaging was utilized to assist in crossing the interatrial septum. There is a small residual ASD post-procedure with left to right flow by Doppler. Left Ventricle: The left ventricular systolic function is normal. The LVEF is visually estimated at 50 - 55%. Right Ventricle: The right ventricular systolic function is normal. Pericardium: There is a small pericardial effusion before starting the procedure. There is no echocardiographic evidence of cardiac tamponade. Effusion stable at end of procedure. Left Ventricle The left ventricle is normal size. The left ventricular systolic function is normal. The LVEF is visually estimated at 50 - 55%. Unable to assess diastolic function. Due to poor image quality, regional wall motion was not interpretable. Right Ventricle The right ventricle is normal in size. The right ventricular systolic function is normal. Unable to estimate the right ventricular systolic pressure (RVSP) due to inadequate TR signal. Left Atrium The left atrium is dilated by visual assessment. The left atrial appendage was evaluated in multiple views and there is no thrombus seen. The maximal diameter of the atrial appendage diameter is 18 mm. A 24 mm left atrial appendage occluder device was placed. It appears normal on 2D, 3D and color Doppler imaging with no leak noted. The interatrial septum is intact with no evidence for an atrial septal defect. Echo guided imaging was utilized to assist in crossing the interatrial septum. There is a small residual ASD post-procedure with left to right flow by Doppler. Right Atrium The right atrial size is normal. IVC/SVC The IVC was not well visualized, and an assumed pressure of 8mmHg was used for calculations. Mitral Valve The mitral valve leaflets are normal in appearance with no evidence of mitral valve prolapse. There is no mitral regurgitation. There is no mitral stenosis. Tricuspid Valve The tricuspid valve is normal in appearance. There is trace tricuspid regurgitation. There is no tricuspid stenosis. Aortic Valve The aortic valve appears to be trileaflet. There is no valvular regurgitation. There is no hemodynamically significant valvular aortic stenosis. Pulmonic Valve The pulmonic valve is grossly normal. There is no pulmonic regurgitation. There is no pulmonic stenosis. Pericardium There is a small pericardial effusion. There is no echocardiographic evidence of cardiac tamponade. Effusion stable at end of procedure. Great Vessels The aortic root is normal in size. The sinus of Valsalva (aortic root) diameter is 29 mm by leading edge to leading edge method. The main pulmonary artery is not well visualized. Study Details Informed consent was obtained prior to the procedure. A complete transesophageal echocardiogram using complete 2D and 3D imaging was performed. During the study the esophageal and transgastric view was captured. The probe was inserted by the supervisor in circuit testing. There was no probe insertion difficulty. Moderate sedation was given. Sedation was performed by cardiology.Lidocaine was administered during the study. The following medications were administered during the study: 8 mg of IV midazolam, 150 mcg of IV fentanyl. Height: 155 cm. Weight: 106 kg. BSA: 2.13 m2. There were no complications during the procedure. Study Recommendation There is no recent study available for direct [id number] comparison. Bryan Allen MD CV ECHO PROCEDURES Final R esult * ECHO, ADULT TRANSTHORACIC LIMITED (05/30/2025 3:25 PM EDT) Pathologist [facility] BSA 2.02 m2 CASSIDY ISCV Height 154.9 CASSIDY ISCV Weight 105.7 CASSIDY ISCV Anatomical Region Laterality Modality Echocardiography Narrative 05/30/2025 3:31 PM EDT Left Ventricle The left ventricle is normal size. The left ventricular systolic function is normal. The LVEF is visually estimated at 55 - 60%. The left ventricular wall motion is normal. Pericardium Evidence of epicardial fat. No pericardial effusion. Study Details A limited transthoracic echocardiogram using limited 2D imaging was performed. During the study the apical, parasternal and subcostal view was captured. Height: 154.9 cm. Weight: 105.7 kg. BSA: 2.02 m2. Vitaliy GORDON CV ECHO PROCEDURES Final Res ult * LEFT ATRIAL APPENDAGE CLOSURE (TRANSVENOUS) (05/30/2025 11:49 AM EDT) Anatomical Region Laterality Modality Other Narrative 05/30/2025 12:04 PM EDT Successful percutaneous left atrial appendage occlusion with a 24 mm Watchman FLX Pro device 1) Bed rest for 4 hours. Patient can be discharged thereafter if 1) echocardiogram shows no major abnormality, 2) the patient can ambulate, and 3) there is adequate vascular hemostasis. 2) Echocardiogram in 4 hours to assess for effusion 3) Aspirin 81 mg daily indefinitely. Plavix 300 mg prior to discharge if echocardiogram shows no major abnormality. Plavix 75 daily for 6 months. 4) Antibiotics prior to dental procedures for 6 months. 5) Follow-up in [address] scan to look for device leak and device-related thrombus. I, Dr. Bryan Allen, was present for the entire procedure. 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 The patient was, therefore, referred for left atrial appendage occlusion. Procedure In Detail: After written, informed consent was obtained, the patient was transported to the cardiac catheterization laboratory in the fasting state. A Time Out was performed to verify the correct patient, procedure, and access sites. Throughout the procedure, intravenous conscious sedation was administered by the nurse in the room and supervised by Dr. Allen and the transesophageal echocardiography (JOSE) attending. The JOSE team first performed JOSE to verify the absence of a major pericardial effusion, no left atrial appendage clot, and left atrial appendage anatomy suitable for Watchman. After this, the patient's bilateral groins were prepped and draped in the usual sterile fashion. Using ultrasound guidance and the modified Seldinger technique, the following vascular access was obtained: 1) Right common femoral vein: 8-Uruguayan short Terumo sheath (preclose deployed) Antibiotics were given. Heparin for ACT>250 was given. The 8-Uruguayan sheath was exchanged for an 8.5-Uruguayan, 63 cm, 45-degree curve VersaCross sheath. The VersaCross RF wire was advanced to the sheath tip. The sheath and wire were withdrawn to the fossa ovalis under JOSE guidance for an inferior and posterior puncture. Using electrocautery, the pigtail wire was used to the quarles the septum and enter the left atrium. The VersaCross dilator/sheath were advanced into the left atrium to dilate the septum. The dilator and sheath were then removed over the pigtail wire. The Watchman 14-Uruguayan double curve sheath was then advanced over the wire into the left atrium. A 6-Uruguayan Pigtail catheter was advanced through the sheath to the left atrial appendage. Using a hand injection of non-ionic contrast, I performed angiography of the left atrial appendage. The delivery sheath was advanced over the pigtail catheter into the left atrial appendage. A 24 mm Watchman FLX Pro device was flushed and prepped on the back table. The pigtail catheter was removed. The Watchman FLX device was advanced to the tip of the sheath. The sheath was retracted to form the ball. After confirming the correct position, the sheath was further retracted to expose the entire device. At this point, we performed measurements on JOSE and confirmed adequate PASS criteria. There was no effusion. The device was released. The perclose was tightened for vascular hemostasis. The patient was transported to the holding area in good condition. No immediate intraprocedural complications were apparent. Study Details PAF Hemodynamic Data Pressures Phase: Resting Left LA Mean: 19 mmHg us Svetlana GORDON CV CARDIAC CATH PROCEDU RES Final Result * (ABNORMAL) POCT creatinine (05/30/2025 9:01 AM EDT) [facility] Creatinine, Point of Care 1.3(H) 0.6 - 1.1 mg/dL 05/30/2025 9:05 AM EDT [facility] POCT eGFR 43 mL/min/1. 73m*2 05/30/2025 9:05 AM EDT [facility] Framing Carpenter ID Chey Joel 05/30/2025 9:05 AM EDT HEALTHCARE LAB Device ID [id number] 05/30/2025 9:05 AM EDT [facility] Comment 05/30/2025 9:05 AM EDT [facility] Comment:Testing performed on i-STAT at the point of care. Reported eGFRcr in mL/min/1.73m2 is based the CKD-EPI 2020 equation that does not use a race coefficient. Blood Venous blood specimen / Unknown 05/30/2025 9:01 AM EDT 05/30/2025 9:05 AM EDT us Bryan Allen MD LAB POINT OF CARE TEST DOCKED DEVICE UNSOLICITED RESULTS Final Result [facility] [address] [facility] [address] [place] [id number] * (ABNORMAL) Magnesium (05/30/2025 8:57 AM EDT) Pathologist [facility] Magnesium, Plasma 1.8(L) 1.9 - 2.4 mg/dL 05/30/2025 9:37 AM EDT [facility] Blood Venous blood specimen / Unknown Venipuncture / Unknown 05/30/2025 8:57 AM EDT 05/30/2025 9:09 AM EDT Jignesh GORDON LAB BLOOD ORDERABLES Final R esult [facility] [address] [place] [address] * (ABNORMAL) Basic metabolic panel (05/30/2025 8:57 AM EDT) Pathologist [facility] Glucose, Plasma 271(H) 74 - 99 mg/dL 05/30/2025 9:37 AM EDT [facility] BUN, Plasma 27(H) 8 - 23 mg/dL 05/30/2025 9:37 AM EDT [facility] Creatinine, Plasma 1.10 0.60 - 1.10 mg/dL 05/30/2025 9:37 AM EDT [facility] BUN/Creatinine Ratio 25 05/30/2025 9:37 AM EDT [facility] Sodium, Plasma 138 136 - 145 mmol/L 05/30/2025 9:37 AM EDT [facility] Potassium, Plasma 4.7 3.6 - 4.9 mmol/L 05/30/2025 9:37 AM EDT [facility] Comment:Hemolyzed, result ma y be falsely increased. Chloride, Plasma 102 97 - 107 mmol/L 05/30/2025 9:37 AM EDT [facility] CO2, Plasma 22 22 - 29 mmol/L 05/30/2025 9:37 AM EDT [facility] Anion Gap 14 6 - 16 mmol/L 05/30/2025 9:37 AM EDT [facility] Total Calcium, Plasma 9.8 8.9 - 10.2 mg/dL 05/30/2025 9:37 AM EDT [facility] eGFRcr 52.2 mL/min/1.7 3m*2 05/30/2025 9:37 AM EDT [facility] Comment:Reported eGFRcr in m L/min/1.73m2 is based the CKD-EPI 2020 equation that does not use a race coefficient. Blood Venous blood specimen / Unknown Venipuncture / Unknown 05/30/2025 8:57 AM EDT 05/30/2025 9:09 AM EDT us Jignesh GORDON LAB BLOOD ORDERABLES Final R esult [facility] [address] [place] [address] * Hemogram (CBC) (05/30/2025 8:57 AM EDT) WBC Count 8.97 3.70 - 10.30 10*3/uL LAB HEMATOLOGY METHOD 05/30/2025 9:19 AM EDT [facility] RBC Count 4.72 3.90 - 5.20 10*6/uL LAB HEMATOLOGY METHOD 05/30/2025 9:19 AM EDT [facility] HGB 14.4 11.2 - 15.7 g/dL LAB HEMATOLOGY METHOD 05/30/2025 9:19 AM EDT [facility] HCT 43.8 34.0 - 45.0 % LAB HEMATOLOGY METHOD 05/30/2025 9:19 AM EDT [facility] Platelet Count 249 155 - 369 10*3/uL LAB HEMATOLOGY METHOD 05/30/2025 9:19 AM EDT [facility] MCV 93 79 - 98 fL LAB HEMATOLOGY METHOD 05/30/2025 9:19 AM EDT [facility] MCH 30.5 26.0 - 32.0 pg LAB HEMATOLOGY METHOD 05/30/2025 9:19 AM EDT [facility] MCHC 32.9 30.7 - 35.5 g/dL LAB HEMATOLOGY METHOD 05/30/2025 9:19 AM EDT [facility] RDW 13.0 11.5 - 14.5 % LAB HEMATOLOGY METHOD 05/30/2025 9:19 AM EDT [facility] MPV 9.8 8.8 - 12.5 fL LAB HEMATOLOGY METHOD 05/30/2025 9:19 AM EDT [facility] nRBC 0.0 <=0.0 per 100 WBCs LAB HEMATOLOGY METHOD 05/30/2025 9:19 AM EDT [facility] Blood Venous blood specimen / Unknown Venipuncture / Unknown 05/30/2025 8:57 AM EDT 05/30/2025 9:11 AM EDT Jignesh GORDON LAB BLOOD ORDERABLES Final R esult [facility] [address] [place] [address] documented in this encounter Visit Diagnoses Diagnosis Atrial fibrillation (CMS/HCC)- Primary Atrial fibrillation Paroxysmal atrial fibrillation (CMS/HCC) Atrial fibrillation Paroxysmal atrial fibrillation (CMS/HCC) Atrial fibrillation documented in this encounter Admitting Diagnoses Diagnosis Atrial fibrillation (CMS/HCC) Atrial fibrillation Paroxysmal atrial fibrillation (CMS/HCC) Atrial fibrillation documented in this encounter Administered Medications Inactive Administered Medications - up to 3 most recent administrations Medication Order MAR Action Action Date Dose Rate Site acetaminophen (Tylenol) tablet 650 mg 650 mg, Oral, Every 4 hours PRN, Starting on Thu05/30/25 at 1215, Until Thu05/30/25 at 1843, Routine, Recovery(Phase II-Outpatient)/On Unit(Inpatient), mild pain, fever Given 05/30/2025 12:36 PM EDT 650 mg sodium chloride 0.9 % flush 10 mL 10 mL, Intravenous, Every 8 hours PRN, Starting on Thu05/30/25 at 0856, Until Thu05/30/25 at 1843, Routine, Holding - Preprocedure, line care sodium chloride 0.9 % flush 10 mL 10 mL, Intravenous, As needed, Starting on Thu05/30/25 at 0856, Until Thu05/30/25 at 1843, Routine, Holding - Preprocedure, line care documented in this encounter Active and Recently Administered Medications Times are shown in EDT. Scheduled Medication Order 05/28/2025 05/29/2025 05/30/2025 vancomycin in NS (Vancocin) IVPB 1,500 mg (COMPLETED) 1,500 mg (rounded from 1,575 mg = 15 mg/kg 105 kg Order-specific weight), Intravenous, Once, 1 dose, On Thu05/30/25 at 0945, at 166.7 mL/hr, STAT 0945 (Due)1037 (New Bag - Provider: Josephine Mathew RN) PRN Medication Order 05/28/2025 05/29/2025 05/30/2025 acetaminophen (Tylenol) tablet 650 mg 650 mg, Oral, Every 4 hours PRN, Starting on Thu05/30/25 at 1215, Until Thu05/30/25 at 1843, Routine, Recovery(Phase II-Outpatient)/On Unit(Inpatient), mild pain, fever 1236 (Given - Provid er: Zack Reyna RN) fentaNYL (Sublimaze) injection (CANCELED) As needed, Starting on Thu05/30/25 at 1043, Until Thu05/30/25 at 1157, Routine, Intraprocedure 1043 (Given - Provid er: Josephine Mathew RN)1045 (Given - Provider: Josephine Mathew, MARINO)1059 (Given - Provider: Josephine Mathew, MARINO)1112 (Given - Provider: Josephine Mathew, RN)1118 (Given - Provider: Josephine Mathew RN) heparin (porcine) injection (CANCELED) As needed, Starting on Thu05/30/25 at 1115, Until Thu05/30/25 at 1157, Routine, Intraprocedure 1115 (Given - Provid er: Bryan Allen MD - Comment: via femoral sheath)1130 (Given - Provider: Josephine Mathew, RN) iodixanol (VISIPaque) 320 MG/ML injection (CANCELED) As needed, Starting on Thu05/30/25 at 1142, Until Thu05/30/25 at 1157, Routine, Intraprocedure 1142 (Given - Provid er: Bryan Allen MD) lidocaine (Xylocaine) 2 % injection (CANCELED) As needed, Starting on Thu05/30/25 at 1111, Until Thu05/30/25 at 1157, Routine, Intraprocedure 1111 (Given - Provid er: Bryan Allen MD - Comment: right femoral) midazolam (Versed) injection (CANCELED) As needed, Starting on Thu05/30/25 at 1043, Until Thu05/30/25 at 1157, Routine, Intraprocedure 1043 (Given - Provid er: Josephine Mathew RN)1045 (Given - Provider: Josephine Mathew RN)1048 (Given - Provider: Josephine Mathew RN)1059 (Given - Provider: Josephine Mathew RN)1112 (Given - Provider: Josephine Mathew RN)1118 (Given - Provider: Josephine Mathew RN)1140 (Given - Provider: Josephine Mathew RN) sodium chloride 0.9 % flush 10 mL(Linked Group 1) 10 mL, Intravenous, Every 8 hours PRN, Starting on Thu05/30/25 at 0856, Until Thu05/30/25 at 1843, Routine, Holding - Preprocedure, line care sodium chloride 0.9 % flush 10 mL(Linked Group 1) 10 mL, Intravenous, As needed, Starting on Thu05/30/25 at 0856, Until Thu05/30/25 at 1843, Routine, Holding - Preprocedure, line care Linked Groups Order Group 1: Insert peripheral IV (CANCELED) Once, On Thu05/30/25 at 0857, For 1 occurrence, If a device procedure must have two IV lines with one in the left., Holding - Preprocedure And Saline lock IV (CANCELED) Once, On Thu05/30/25 at 0857, For 1 occurrence, Holding - Preprocedure And sodium chloride 0.9 % flush 10 mLJump to med 10 mL, Intravenous, Every 8 hours PRN, Starting on Thu05/30/25 at 0856, Until Thu05/30/25 at 1843, Routine, Holding - Preprocedure, line care And sodium chloride 0.9 % flush 10 mLJump to med 10 mL, Intravenous, As needed, Starting on Thu05/30/25 at 0856, Until Thu05/30/25 at 1843, Routine, Holding - Preprocedure, line care documented in this encounter Additional Health Concerns Infection Onset Date Last Indicated Resolved Time MRSA Comment:Added from external infection. Source: [facility]. 09/07/2019 Assessment Noted Time PHQ-9 Depression Total Score: 0 04/24/20 25 1:50 PM EDT A fall risk assessment has been complete d for the patient 04/24/2025 1:50 PM EDT A Body Mass Index follow-up plan has been documented for the patient 05/30/2025 3:57 PM EDT documented as of this encounter Care Teams Manager Customer Relationship Specialty Start Date End Date Heladio Palm MD [address] [place] [id number] PCP - General Internal Medicine 05/02/22 documented as of this encounter
--- OUTSIDE RECORDS SUMMARY | 2025-05-30 09:15 | XMS_ITS | Encounter Summary ---
Author Organization [facility] Address [address] [id number] Care Team Providers Care Cutting Machine Offbearer Name Role Phone Heladio Palm MD Primary Care Provider + [phone] Reason for Visit * Auth/Cert (Routine) Specialty Diagnoses / Procedures Referred By Contac t Referred To Contact Diagnoses Paroxysmal atrial fibrillation (CMS/HCC) Paroxysmal atrial fibrillation (CMS/HCC) [I48.0] Procedures MI PERQ CLSR TCAT L ATR APNDGE W/ENDOCARDIAL IMPLNT Left atrial appendage closure (transvenous) Bryan Allen MD [address] [place] [address] Phone: tel: fax: Cardiac Sandblast Or Shotblast Equipment Tender [address] [place] [address] Phone: tel: Referral ID Status Reason Start Date Expiration Date Visits Re quested Visits Authorized [id number] 1 1 Encounter Details Date Type Department Care Team (Late st Contact Info) Description 05/30/2025 9:15 AM EDT - 05/30/2025 10:55 AM EDT Surgery Cardiac Sandblast Or Shotblast Equipment Tender [address] [place] [address] Bryan Allen MD [address] [place] [address] Left atrial appendage closure (transvenous) [49357 (CPT )] Social History Tobacco Use Types Packs/Day Years [...] Sign Reading Time Taken Comments Blood Pressure 178/73 05/30/2025 8:38 AM EDT Pulse 73 05/30/2025 8:38 AM EDT Temperature 36.8 C (98.2 F) 05/30/2025 8:38 AM EDT Respiratory Rate 18 05/30/2025 8:38 AM EDT Oxygen Saturation 91% 05/30/2025 10:47 AM EDT Inhaled Oxygen Concentration - - [...] following information is obtained directly from the [employer]. https://www.heart.org/en/health-topics/infective-endocarditis What is Infective Endocarditis? [...] 80 MG tabletIndications :Coronary artery disease involving mechoopda coronary artery of mechoopda heart without angina pectoris TAKE 1 TABLET [...] be driven home by son. * Aftab MaloneFHIR - Zack Reyna RN - 05/30/2025 3:57 PM EDT Images from the original note were not included. [id number] Bleeding or Hematoma After Cardiac Catheterization You [...] on the site, and call 911 or [facility]. [...] provider. Last Reviewed Date: 2024 00:00:00 ?? [id number] [employer]. All rights reserved. This information is not [...] It does take the place of a predatory animal exterminator blood thinner to prevent a stroke. What [...] Any return of bleeding * H&P - Vtialiy Sykes PA - 05/30/2025 9:13 AM EDT [...] will be extracted and entered into the [facility] Clinical [facility]/CMS Research as required by the [facility].? NCT#[id number] She did take Plavix this a.m. and is NPO for the procedure. She denies recent illness or overt signs of GI bleeding. Past 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 Past 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[1] Surgical History Surgical History[2] Family History Reviewed and non-contributory. Social History Tobacco use: denies Alcohol use: Denies any significant recent usage. Other: Denies illicit drug use. Allergies: Allergies[3] Home Medications: reconciled in [facility] Hospital Medications: Current Scheduled Medications[4] Current [...] MD, Cardiology Attending Vitaliy Sykes PA-C [phone] [1] Past 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: Diagnosis Date Allergic purpura (CMS/HCC) Henoch-Schonlein purpura Allergic rhinitis Allergy to metal 1966 Anemia Arrhythmia 1975 Asthma Childhood 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 Mukherjee's esophagus Bronchiectasis Childhood Cataract CHF (congestive heart failure) (CMS/HCC) COPD (chronic obstructive pulmonary disease) (CMS/HCC) 2009 Coronary artery disease 2009 Diabetes mellitus (CMS/HCC) 2016 Diabetic nephropathy (CMS/HCC) GERD (gastroesophageal reflux disease) [...] Date BLADDER SURGERY N/A Bladder Surgery from [facility] CARDIAC CATHETERIZATION June 2022 CATARACT EXTRACTION N/A Cataract Extraction from [facility] CHOLECYSTECTOMY N/A 2013 Cholecystectomy from [facility] HYSTERECTOMY N/A 1987 Hysterectomy from [facility] INTRAOCULAR LENS INSERTION KIDNEY SURGERY bleeding from kidney, fixed in IR OTHER SURGICAL HISTORY N/A Biopsy Skin from [facility] TOTAL ABDOMINAL HYSTERECTOMY N/A Total Abdominal Hysterectomy from [facility] [3] Allergies Allergen Reactions Codeine Anaphylaxis, Nausea, [...] sodium chloride * Hospital Course - Pollo Phillips, ERASTO - 05/25/2025 1:28 PM EDT Mirtha Barrios [...] extracted and entered into the NCDR Clinical Registry/[facility] Research as required by the [facility].? NCT#[id number] Cardiac Diagnostics: Echo - 04/2025 at OSH: Normal biventricular systolic function, mild RV dilation, mild biatrial dilation,mild TR - 05/30/2025: Cardiac Procedures: Watchman - 05/30/2025: Successful percutaneous left atrial appendage occlusion with a 24 mm Watchman FLX Pro device. Dr. Bryan Allen, [facility]. # Paroxysmal Atrial Fibrillation and Flutter [...] Description 06/05/2025 4:00 PM EDT Office Visit [facility] [place] [address], [address] [place] [address] 07/19/2025 1:20 PM EST Appointment [facility] [address] [place] [address] 07/26/2025 4:00 PM EST Office Visit [facility] [employer] [address], [address] [place] [address] Svetlana Olguin PA [address] [place] [address] 08/14/2025 1:30 PM EST Office Visit [facility] [address] [place] [address] 01/26/2026 11:00 AM EDT Office Visit [facility] [address] [place] [address] Luis Olivares MD [address] [phone] documented as of this encounter Procedures Procedure [...] INTRAPROCEDURAL W/ 3D (05/30/2025 4:17 PM EDT) [facility] Signature BSA 2.13 m2 CASSIDY ISCV Height 155 [...] captured. The probe was inserted by the food products sales representative. There was no probe insertion difficulty. Moderate [...] is no recent study available for direct [id number] comparison. Bryan Allen MD CV ECHO PROCEDURES Final R esult * ECHO, ADULT TRANSTHORACIC LIMITED (05/30/2025 3:25 PM EDT) [facility] BSA 2.02 m2 CASSIDY ISCV Height 154.9 [...] Procedure Details Background Information: The patient is [id number] woman with atrial fibrillation, hypertension, diabetes mellitus, [...] (ABNORMAL) POCT creatinine (05/30/2025 9:01 AM EDT) [facility] Creatinine, Point of Care 1.3(H) 0.6 - 1.1 mg/dL 05/30/2025 9:05 AM EDT [facility] POCT eGFR 43 mL/min/1. 73m*2 05/30/2025 9:05 AM EDT HEALTHCARE LAB Tire Manager ID Chey Joel 05/30/2025 9:05 AM EDT HEALTHCARE LAB Device ID [id number] 05/30/2025 9:05 AM EDT [facility] Comment 05/30/2025 9:05 AM EDT [facility] Comment:Testing performed on i-STAT at the point of care. Reported eGFRcr in mL/min/1.73m2 is based the CKD-EPI 2020 equation that does not use a race coefficient. Blood Venous blood specimen / Unknown 05/30/2025 9:01 AM EDT 05/30/2025 9:05 AM EDT us Bryan Allen MD LAB POINT OF CARE TEST DOCKED DEVICE UNSOLICITED RESULTS Final Result [facility] [address] [place] [address] [facility] [address] [place] [address] * (ABNORMAL) Magnesium (05/30/2025 8:57 AM EDT) Pathologist [facility] Magnesium, Plasma 1.8(L) 1.9 - 2.4 mg/dL 05/30/2025 9:37 AM EDT [facility] Blood Venous blood specimen / Unknown Venipuncture / Unknown 05/30/2025 8:57 AM EDT 05/30/2025 9:09 AM EDT us Jignesh GORDON LAB BLOOD ORDERABLES Final R esult [facility] [address] [place] [address] * (ABNORMAL) Basic metabolic panel (05/30/2025 8:57 AM EDT) [facility] Glucose, Plasma 271(H) 74 - 99 mg/dL 05/30/2025 9:37 AM EDT [facility] BUN, Plasma 27(H) 8 - 23 mg/dL 05/30/2025 9:37 AM EDT [facility] Creatinine, Plasma 1.10 0.60 - 1.10 mg/dL 05/30/2025 9:37 AM EDT [facility] BUN/Creatinine Ratio 25 05/30/2025 9:37 AM EDT [facility] Sodium, Plasma 138 136 - 145 mmol/L 05/30/2025 9:37 AM EDT [facility] Potassium, Plasma 4.7 3.6 - 4.9 mmol/L 05/30/2025 9:37 AM EDT [facility] Comment:Hemolyzed, result ma y be falsely increased. Chloride, Plasma 102 97 - 107 mmol/L 05/30/2025 9:37 AM EDT [facility] CO2, Plasma 22 22 - 29 mmol/L 05/30/2025 9:37 AM EDT [facility] Anion Gap 14 6 - 16 mmol/L 05/30/2025 9:37 AM EDT [facility] Total Calcium, Plasma 9.8 8.9 - 10.2 mg/dL 05/30/2025 9:37 AM EDT [facility] eGFRcr 52.2 mL/min/1.7 3m*2 05/30/2025 9:37 AM EDT [facility] Comment:Reported eGFRcr in m L/min/1.73m2 is based the CKD-EPI 2020 equation that does not use a race coefficient. Blood Venous blood specimen / Unknown Venipuncture / Unknown 05/30/2025 8:57 AM EDT 05/30/2025 9:09 AM EDT us Jignesh GORDON LAB BLOOD ORDERABLES Final R esult [facility] [address] [place] [address] * Hemogram (CBC) (05/30/2025 8:57 AM EDT) WBC Count 8.97 3.70 - 10.30 10*3/uL LAB HEMATOLOGY METHOD 05/30/2025 9:19 AM EDT [facility] RBC Count 4.72 3.90 - 5.20 10*6/uL LAB HEMATOLOGY METHOD 05/30/2025 9:19 AM EDT [facility] HGB 14.4 11.2 - 15.7 g/dL LAB HEMATOLOGY METHOD 05/30/2025 9:19 AM EDT [facility] HCT 43.8 34.0 - 45.0 % LAB HEMATOLOGY METHOD 05/30/2025 9:19 AM EDT [facility] Platelet Count 249 155 - 369 10*3/uL LAB HEMATOLOGY METHOD 05/30/2025 9:19 AM EDT [facility] MCV 93 79 - 98 fL LAB HEMATOLOGY METHOD 05/30/2025 9:19 AM EDT [facility] MCH 30.5 26.0 - 32.0 pg LAB HEMATOLOGY METHOD 05/30/2025 9:19 AM EDT [facility] MCHC 32.9 30.7 - 35.5 g/dL LAB HEMATOLOGY METHOD 05/30/2025 9:19 AM EDT [facility] RDW 13.0 11.5 - 14.5 % LAB HEMATOLOGY METHOD 05/30/2025 9:19 AM EDT [facility] MPV 9.8 8.8 - 12.5 fL LAB HEMATOLOGY METHOD 05/30/2025 9:19 AM EDT [facility] nRBC 0.0 <=0.0 per 100 WBCs LAB HEMATOLOGY METHOD 05/30/2025 9:19 AM EDT [facility] Blood Venous blood specimen / Unknown Venipuncture / Unknown 05/30/2025 8:57 AM EDT 05/30/2025 9:11 AM EDT Jignesh GORDON LAB BLOOD ORDERABLES Final R esult [facility] [address] [place] [address] documented in this encounter Visit Diagnoses Diagnosis [...] Given 05/30/2025 12:36 PM EDT 650 mg fentaNYL (Sublimaze) injection As needed, Starting on Thu05/30/25 at 1043, Until Thu05/30/25 at 1157, Routine, Intraprocedure Given 05/30/2025 11:18 AM EDT 25 mcg Given 05/30/2025 11:12 AM EDT 25 mcg Given 05/30/2025 10:59 AM EDT 25 mcg heparin (porcine) injection As needed, Starting on Thu05/30/25 at 1115, Until Thu05/30/25 at 1157, Routine, Intraprocedure Given 05/30/2025 11:30 AM EDT 1,500 Units Given 05/30/2025 11:15 AM EDT 10,000 Units iodixanol (VISIPaque) 320 MG/ML injection As needed, Starting on Thu05/30/25 at 1142, Until e 05/30/25 at 1157, Routine, Intraprocedure Given 05/30/2025 11:42 AM EDT 65 mL lidocaine (Xylocaine) 2 % injection As needed, Starting on Thu05/30/25 at 1111, Until Thu05/30/25 at 1157, Routine, Intraprocedure Given 05/30/2025 11:11 AM EDT 10 mL midazolam (Versed) injection As needed, Starting on Thu05/30/25 at 1043, Until e 05/30/25 at 1157, Routine, Intraprocedure Given 05/30/2025 11:40 AM EDT 1 mg Given 05/30/2025 11:18 AM EDT 1 mg Given 05/30/2025 11:12 AM EDT 1 mg sodium chloride 0.9 % flush 10 mL 10 mL, Intravenous, Every 8 hours PRN, Starting on Thu05/30/25 at 0856, Until Thu05/30/25 at 1843, Routine, Holding - Preprocedure, line care sodium chloride 0.9 % flush 10 mL 10 mL, Intravenous, As needed, Starting on Thu05/30/25 at 0856, Until Thu05/30/25 at 1843, Routine, Holding - Preprocedure, line care vancomycin in NS (Vancocin) IVPB 1,500 mg 1,500 mg (rounded from 1,575 mg = 15 mg/kg 105 kg Order-specific weight), Intravenous, Once, 1 dose, On Thu05/30/25 at 0945, at 166.7 mL/hr, STAT New Bag 05/30/2025 10:37 AM EDT 1.5 g documented in this encounter Active and Recently [...] Josephine Mathew RN)1045 (Given - Provider: Josephine aMthew RN)1059 (Given - Provider: Josephine Mathew, RN)1112 (Given - Provider: Josephine Mathew RN)1118 (Given - Provider: Josephine Mathew RN) heparin (porcine) injection (CANCELED) As needed, Starting on Thu05/30/25 at 1115, Until Thu05/30/25 at 1157, Routine, Intraprocedure 1115 (Given - Provid er: Bryan Allen MD - Comment: via femoral sheath)1130 (Given - Provider: Josephine Mathew, MARINO) iodixanol (VISIPaque) 320 MG/ML injection (CANCELED) As [...] PRN, Starting on Thu05/30/25 at 0856, Until e 05/30/25 at 1843, Routine, Holding - Preprocedure, line care sodium chloride 0.9 % flush 10 mL(Linked Group 1) 10 mL, Intravenous, As needed, Starting on Thu05/30/25 at 0856, Until e 05/30/25 at 1843, Routine, Holding - Preprocedure, [...] Time MRSA Comment:Added from external infection. Source: [facility]. 09/07/2019 Assessment Noted Time PHQ-9 Depression Total Score: 0 04/24/20 1:50 PM EDT A fall risk assessment has been complete d for the patient 04/24/2025 1:50 PM EDT A Body Mass Index follow-up plan has been documented for the patient 05/30/2025 3:57 PM EDT documented as of this encounter Care Teams Cutting Machine Offbearer Relationship Specialty Start Date End Date Heladio Palm MD [address] [place] [address] PCP - General Internal Medicine 05/02/22 documented as of this encounter
--- OUTSIDE RECORDS SUMMARY | 2025-06-01 15:48 | XMS_ITS | Encounter Summary ---
Author Organization Healthcare Address [address] [place] [address] Care Team Providers Care English Division Chair Name Role Phone Heladio Palm MD Primary Care Provider + [phone] Encounter Details Date Type Department Care Team (Late st Contact Info) Description 03/02/2025 Telephone [facility] [address] [place] [address] Luis Olivares MD [address] [address] Social History Tobacco Use Types [...] date Send To: Mail Best contact number: [phone] (home) Optimal time of day to reach caller: ANYTIME Additional comments/information from caller: None Note: Please do not reply to this message. Follow-up communication and further actions as a result of this message need to be communicated with the patient directly, if the patient is not active onMyChart. If the patient is active on MyChart, they will receive notification of the communication/outcome via [employer] Playbook. documented in this encounter Plan of Treatment Upcoming Encounters Date Type Department Care Team ([facility] Contact Info) Description 06/05/2025 4:00 PM EDT Office Visit [facility] Nephrology, Bone & Mineral Metabolism [address], [address] [place] [address] 07/19/2025 1:20 PM EST Appointment [facility] [address] [place] [address] 07/26/2025 4:00 PM EST Office Visit [facility] [place] [address], [address] [place] [address] Svetlana Olguin PA [address] [place] [address] 08/14/2025 1:30 PM EST Office Visit [facility] [address] [place] [address] 01/26/2026 11:00 AM EDT Office Visit [facility] [address] [facility] [address] Luis Olivares MD [address] [place] [address] documented as of this encounter Visit Diagnoses Not on filedocumented in this encounter Additional Health Concerns Assessment Noted Time PHQ-9 Depression Total Score: 12 10/06/2 023 12:53 PM EDT A fall risk assessment has been complete d for the patient 12/30/2024 10:32 AM EDT A Body Mass Index follow-up plan has been documented for the patient 12/30/2024 11:11 AM EDT documented as of this encounter Care Teams English Division Chair Relationship Specialty Start Date End Date Heladio Palm MD [address] [place] [address] PCP - General Internal Medicine 05/02/22 documented as of this encounter
--- OUTSIDE RECORDS SUMMARY | 2025-06-01 15:49 | XMS_ITS | Encounter Summary ---
Author Organization Healthcare Address [address] [place] [address] Care Team Providers Care Turning Sander Operator Name Role Phone Heladio Palm MD Primary Care Provider + [phone] Encounter Details Date Type Department Care Team ([facility] Contact Info) Description 03/13/2025 Telephone [facility] Nephrology, Bone & Mineral Metabolism [address], [address] [place] [address] Alejandra Camacho MD [address] [place] [address] Social History Tobacco Use Types [...] optimal time of day to reach caller: [phone] Note: Please do not reply to this message. Follow-up communication and further actions as a result of this message need to be communicated with the patient directly, if the patient is not active onMyChart. If the patient is active on MyChart, they will receive notification of the communication/outcome via Glassbeam. documented in this encounter Plan of Treatment Upcoming Encounters Date Type Department Care Team (Late st Contact Info) Description 06/05/2025 4:00 PM EDT Office Visit [facility] [place] Nephrology, Bone & Mineral Metabolism [address] [facility], [address] [place] [address] 07/19/2025 1:20 PM EST Appointment [facility] [address] [place] [address] 07/26/2025 4:00 PM EST Office Visit [facility] [address] [facility], [address] [place] [address] Svetlana Olguin PA [address] [place] [address] 08/14/2025 1:30 PM EST Office Visit [facility] [address] [place] [address] 01/26/2026 11:00 AM EDT Office Visit [facility] Eye Care [address] [place] [address] Luis Olivares MD [address] [facility] [address] [place] [address] documented as of this encounter Visit [...] documented as of this encounter Care Teams Turning Sander Operator Relationship Specialty Start Date End Date Heladio Palm MD [address] [place] [address] PCP - General Internal Medicine 05/02/22 documented as of this encounter
--- OUTSIDE RECORDS SUMMARY | 2025-06-01 15:50 | XMS_ITS | Encounter Summary ---
[facility] [address] [place] [address] Care Team Providers Care Children'S Counselor Name Role Phone Dano Romero MD Primary Care Provider [phone] Encounter Details Date Type Department Care Team (Late st Contact Info) Description 02/02/2018 Telephone [facility] [address] [place] [address] Huber Grossman MD Social History Tobacco [...] documented as of this encounter Care Teams Children'S Counselor Relationship Specialty Start Date End Date Dano Romero MD [address] [place], [place] [id number] PCP - General Internal Medicine 09/29/19 documented as of this encounter
--- OUTSIDE RECORDS SUMMARY | 2025-06-01 15:51 | XMS_ITS | Encounter Summary ---
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
--- OUTSIDE RECORDS SUMMARY | 2025-06-01 15:51 | XMS_ITS | Encounter Summary ---
Author Organization [facility] Address [address] [place] [address] Care Team Providers Care Power Tool Repairer Name Role Phone Heladio Palm MD Primary Care Provider + [phone] Encounter Details Date Type Department Care Team ([facility] Contact Info) Description 11/03/2024 Orders Only External Location [address] [place] [address] Provider, External Social History Tobacco [...] Upcoming Encounters Date Type Department Care Team ([facility] Contact Info) Description 06/05/2025 4:00 PM EDT Office Visit [facility] Nephrology, Bone & Mineral Metabolism [address], [address] [place] [address] 07/19/2025 1:20 PM EST Appointment [facility] [address] [place] [address] 07/26/2025 4:00 PM EST Office Visit [facility] [place] [facility] [address] [facility] [place] [address] Svetlana Olguin PA [address] [place] [address] 08/14/2025 1:30 PM EST Office Visit [facility] [address] [place] [address] 01/26/2026 11:00 AM EDT Office Visit [facility] Advanced Eye Care [address] [facility] [place] [address] Luis Olivares MD [address] [facility] [address] [place] [address] documented as of this encounter [...] Time MRSA Comment:Added from external infection. Source: [facility]. 09/07/2019 Assessment Noted Time PHQ-9 Depression Total Score: 12 023 12:53 PM EDT A fall risk assessment has been complete d for the patient 08/08/2024 12:49 PM EST A Body Mass Index follow-up plan has been documented for the patient 08/18/2024 8:26 PM EST documented as of this encounter Care Teams Power Tool Repairer Relationship Specialty Start Date End Date Heladio Palm MD [address] [place] [address] PCP - General Internal Medicine 8/26/22 documented as of this encounter
--- OUTSIDE RECORDS SUMMARY | 2025-06-01 15:52 | XMS_ITS | Encounter Summary ---
Author [facility] [address] [place] [address] Care Team Providers Care Fire Department Battalion Chief Name Role Phone Dano Romero MD Primary Care Provider [phone] Reason for Visit * Reason Onset Date Comments Med Refill 11/16/2018 Encounter Details Date Type Department Care Team (Late st Contact Info) Description 11/16/2018 Refill [facility]IC[facility] [address] [phone] Huber Grossman MD Social History Tobacco Use [...] documented as of this encounter Care Teams Fire Department Battalion Chief Relationship Specialty Start Date End Date Dano Romero MD [address] [place] [address] PCP - General Internal Medicine 09/29/19 documented as of this encounter
--- OUTSIDE RECORDS SUMMARY | 2025-06-01 15:55 | XMS_ITS | Encounter Summary ---
Author Organization Healthcare Address [address] [place] [address] Care Team Providers Care Television Writer Name Role Phone Heladio Palm MD Primary Care Provider + [phone] Reason for Visit * Reason Comments Med Refill Encounter Details Date Type Department Care Team (Late st Contact Info) Description 05/05/2024 Refill [facility] Chelsea Sandro [address] [place] [address] Willow Fry PA [address] [place] [address] Coronary artery disease involving creek coronary artery of creek heart without angina pectoris Social History Tobacco [...] 06/05/2025 4:00 PM EDT Office Visit [facility] Nephrology, Bone & Mineral Metabolism [address], [address] [place] [address] 07/19/2025 1:20 PM EST Appointment [facility] [address] [place] [address] 07/26/2025 4:00 PM EST Office Visit [facility] Chelsea Franklin [address], [address] [place] [address] Svetlana Olguin PA [address] [place] [address] 08/14/2025 1:30 PM EST Office Visit [facility] [address] [place] [address] 01/26/2026 11:00 AM EDT Office Visit [facility] [address] [place] [address] Luis Olivares MD [address] [address] documented as of this encounter Visit Diagnoses Diagnosis Coronary artery disease involving creek coronary artery of creek heart without angina pectoris documented in this encounter Additional Health Concerns Infection Onset Date Last Indicated Resolved Time MRSA Comment:Added from external infection. Source: [facility] [employer] [facility]. 09/07/2019 Assessment Noted Time PHQ-9 Depression Total Score: 12 023 12:53 PM EDT A fall risk assessment has been complete d for the patient 02/08/2024 3:04 PM EDT A Body Mass Index follow-up plan has been documented for the patient 03/30/2024 2:46 PM EDT documented as of this encounter Care Teams Television Writer Relationship Specialty Start Date End Date Heladio Palm MD [address] [place] [address] PCP - General Internal Medicine 05/02/22 documented as of this encounter
--- OUTSIDE RECORDS SUMMARY | 2025-06-01 15:55 | XMS_ITS | Encounter Summary ---
[facility] Organization [facility] Address [address] [place] [address] Care Team Providers Care Fire Extinguisher Repairer Name Role Phone Dano Romero MD Primary Care Provider [phone] Encounter Details Date Type Department Care Team (Late st Contact Info) Description 08/01/2019 Telephone [facility] [address] [place] [address] Huber Grossman MD Social History Tobacco [...] as of this encounter Care Teams Fire Extinguisher Repairer Relationship Specialty Start Date End Date Dano Romero MD [address] [place] [address] PCP - General Internal Medicine 09/29/19 documented as of this encounter
--- OUTSIDE RECORDS SUMMARY | 2025-06-01 15:55 | XMS_ITS | Encounter Summary ---
Author Organization [facility] Address [address] [place] [address] Care Team Providers Care Ditto Machine Operator Name Role Phone Heladio Palm MD Primary Care Provider + [phone] Encounter Details Date Type Department Care Team (Latest Contact Info) Description 05/23/2025 Travel Social History Tobacco Use Types Packs/Day [...] 06/05/2025 4:00 PM EDT Office Visit Professional [facility] Nephrology, Bone & Mineral Metabolism [address], [address] [place] [address] 07/19/2025 1:20 PM EST Appointment [facility] Radiology [address] [place] [address] 07/26/2025 4:00 PM EST Office Visit [facility] [place] [address], [address] [place] [address] Svetlana Olguin PA [address] [place] [address] 08/14/2025 1:30 PM EST Office Visit [facility] [address] [place] [address] 01/26/2026 11:00 AM EDT Office Visit [facility] [address] [facility] [address] Luis Olivares MD [address] [place] [address] documented as of this encounter [...] documented as of this encounter Care Teams Ditto Machine Operator Relationship Specialty Start Date End Date Heladio Palm MD [address] [place] [address] PCP - General Internal Medicine 05/02/22 documented as of this encounter
--- OUTSIDE RECORDS SUMMARY | 2025-06-01 15:55 | XMS_ITS | Encounter Summary ---
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
--- OUTSIDE RECORDS SUMMARY | 2025-06-01 15:56 | XMS_ITS | Encounter Summary ---
Author Organization Healthcare Address [address] [place] [address] Care Team Providers Care Restaurant Line Server Name Role Phone Heladio Palm MD Primary Care Provider + [phone] Encounter Details Date Type Department Care Team ([facility] Contact Info) Description 05/25/2025 Telephone [facility] & Mineral Met[facility] [address] [facility], [address] [place] [address] Lashonda William, UTILITIES AND MAINTENANCE SUPERVISOR GS - 7 MAIN MEDICAL-SURGICAL Social History [...] * Telephone Encounter - Lashonda William - 05/25/2025 5:13 PM EDT 05/25/25 CALLED PT WANTED LABS FAXED TO [facility] .ar} documented in this encounter Plan of Treatment Upcoming Encounters Date Type Department Care Team (Late st Contact Info) Description 06/05/2025 4:00 PM EDT Office Visit Professional [facility] Nephrology, Bone & Mineral Metabolism [address], [address] [place] [address] 07/19/2025 1:20 PM EST Appointment [facility] Radiology [address] [place] [address] 07/26/2025 4:00 PM EST Office Visit [facility] [place] [address] [facility], [address] [place] [address] Svetlana Olguin PA [address] [place] [address] 08/14/2025 1:30 PM EST Office Visit [facility] [address] [place] [address] 01/26/2026 11:00 AM EDT Office Visit [facility] [address] [place] [address] Luis Olivares MD [address] [place] [address] documented as of this encounter [...] documented as of this encounter Care Teams Restaurant Line Server Relationship Specialty Start Date End Date Heladio Palm MD [address] [place] [address] PCP - General Internal Medicine 05/02/22 documented as of this encounter
--- OUTSIDE RECORDS SUMMARY | 2025-06-01 15:56 | XMS_ITS | Encounter Summary ---
Author Organization Healthcare Address [address] [place] [address] Care Team Providers Care Cisco Network Engineer Name Role Phone Heladio Palm MD Primary Care Provider + [phone] Encounter Details Date Type Department Care Team ([facility] Contact Info) Description 05/03/2025 Telephone [facility], Bone & Mineral Metabolism [address], [address] [place] [address] Alejandra Camacho MD [address] [place] [address] Social History Tobacco Use Types [...] encounter Miscellaneous Notes * Telephone Encounter - Jackie Álvarez RN - 05/10/2025 11:13 AM EDT I left pt message to call me. * Telephone Encounter - Tonia Jade - 05/03/2025 1:15 PM EDT Clinical Concern/Question Reason for Call: Needs to speak w/nurse about new Rx's from her Manager Rn (irregular heart rate) Best contact number: [phone] (mobile) Optimal time of day to reach caller: ANYTIME Additional comments/information from caller: None Note: Please do not reply to this message. Follow-up communication and further actions as a result of this message need to be communicated with the patient directly, if the patient is not active onMyChart. If the patient is active on MyChart, they will receive notification of the communication/outcome via [employer]. documented in this encounter Plan of Treatment Upcoming Encounters Date Type Department Care Team (Late st Contact Info) Description 06/05/2025 4:00 PM EDT Office Visit [facility] Nephrology, Bone & Mineral Metabolism [address], [address] [place] [address] 07/19/2025 1:20 PM EST Appointment [facility] Radiology [address] [place] [address] 07/26/2025 4:00 PM EST Office Visit [facility] [place] Orick [address], [address] [place] [address] Svetlana Olguin PA [address] [place] [address] 08/14/2025 1:30 PM EST Office Visit [facility] [address] [place] [address] 01/26/2026 11:00 AM EDT Office Visit [facility] [address] [place] [address] Luis Olivares MD [address] [facility] [address] [place] [address] documented as of this encounter Visit Diagnoses [...] documented as of this encounter Care Teams Cisco Network Engineer Relationship Specialty Start Date End Date Heladio Palm MD [address] [facility] [address] [place] [address] PCP - General Internal Medicine 05/02/22 documented as of this encounter
--- OUTSIDE RECORDS SUMMARY | 2025-06-01 15:58 | XMS_ITS | Encounter Summary ---
Author Organization Healthcare Address [address] [place] [address] Care Team Providers Care Green Chain Operator Name Role Phone Heladio Palm MD Primary Care Provider + [phone] Encounter Details Date Type Department Care Team (Latest Contact Info) Description 05/30/2025 Travel Social History Tobacco Use Types Packs/Day [...] as of this encounter Functional Status * Calculated C-SSRS Risk Score (Lifetime/Recent) Answer Date of Assessment Author No Risk Indicated 05/30/2025 8:38 AM EDT Irina Reyna RN * Question Answer Date of Assessment Author 1. Wish to be (Past 1 Month) No 025 8:38 AM EDT Zack Reyna RN 2. Non-Specific Active Suici thong Thoughts (Past 1 Month) No 05/30/2025 8:38 AM EDT Zack Reyna RN 6. Suicidal Behavior (Lifetime) No 8:38 AM EDT Zack Reyna RN documented as of this encounter Plan of Treatment Upcoming Encounters Date Type Department Care Team (Late st Contact Info) Description 06/05/2025 4:00 PM EDT Office Visit [facility] Nephrology, Bone & Mineral Metabolism [address] [facility], [address] [place] [address] 07/19/2025 1:20 PM EST Appointment [facility] Radiology [address] [place] [address] 07/26/2025 4:00 PM EST Office Visit [facility] [place] [address] [place] [address] Svetlana Olguin PA [address] [place] [address] 08/14/2025 1:30 PM EST Office Visit [facility] [address] [place] [address] 01/26/2026 11:00 AM EDT Office Visit [facility] [address] [facility] [place] [address] Luis Olivares MD [address] [place] [address] documented as of this encounter Visit Diagnoses Not on filedocumented in this encounter Additional Health Concerns Infection Onset Date Last Indicated Resolved Time MRSA Comment:Added from external infection. Source: [facility]. 09/07/2019 Assessment Noted Time PHQ-9 Depression Total Score: 0 04/24/20 25 1:50 PM EDT A fall risk assessment has been complete d for the patient 04/24/2025 1:50 PM EDT A Body Mass Index follow-up plan has been documented for the patient 05/30/2025 3:57 PM EDT documented as of this encounter Care Teams Green Chain Operator Relationship Specialty Start Date End Date Heladio Palm MD [address] [place] [address] PCP - General Internal Medicine 05/02/22 documented as of this encounter
--- OUTSIDE RECORDS SUMMARY | 2025-06-01 15:58 | XMS_ITS | Encounter Summary ---
Author Organization Healthcare Address [address] [place] [address] Care Team Providers Care Children'S Book Author Name Role Phone Heladio Palm MD Primary Care Provider + [phone] Encounter Details Date Type Department Care Team ([facility] Contact Info) Description 06/01/2025 Telephone [facility], Bone & Mineral Metabolism [address] [facility], [address] [place] [address] Lashonda William, MITTEN SEWER GS - 7 MAIN MEDICAL-SURGICAL Social History [...] * Telephone Encounter - Lashonda William - 06/01/2025 8:52 AM EDT 05/31/25 called pt no answer left Vm pt didn't get labs done documented in this encounter Plan of Treatment Upcoming Encounters Date Type Department Care Team (Late st Contact Info) Description 06/05/2025 4:00 PM EDT Office Visit Professional [facility] Nephrology, Bone & Mineral Metabolism [address] [facility], [address] [place] [address] 07/19/2025 1:20 PM EST Appointment [facility] Radiology [address] [place] [address] 07/26/2025 4:00 PM EST Office Visit [facility] [place] [address] [facility], [address] [place] [address] Svetlana Olguin PA [address] [place] [address] 08/14/2025 1:30 PM EST Office Visit [facility] [address] [place] [address] 01/26/2026 11:00 AM EDT Office Visit [facility] [address] [place] [address] Luis Olivares MD [address] [place] [address] documented as of this encounter Visit Diagnoses Not on filedocumented in this encounter Additional Health Concerns Infection Onset Date Last Indicated Resolved Time MRSA Comment:Added from external infection. Source: [facility]. 09/07/2019 Assessment Noted Time PHQ-9 Depression Total Score: 0 04/24/20 1:50 PM EDT A fall risk assessment has been complete d for the patient 04/24/2025 1:50 PM EDT A Body Mass Index follow-up plan has been documented for the patient 05/30/2025 3:57 PM EDT documented as of this encounter Care Teams Children'S Book Author Relationship Specialty Start Date End Date Heladio Palm MD [address] [place] [address] PCP - General Internal Medicine 05/02/22 documented as of this encounter
--- OUTSIDE RECORDS SUMMARY | 2025-06-01 15:58 | XMS_ITS | Patient Health Record ---
Author Organization [facility] Address [address] [place] [address] Care Team Providers Care Violent Crimes Detective Name Role Phone Heladio Palm Primary Care [...] Reference Range Notes HEMOGLOBIN A1c (496) Reviewed date:05/26/2025 09:39:46 AM Interpretation: Performing Lab:CB, [facility] [id number] [facility], [facility] CenterUlrjVP[address] Brady Brown Notes/Report: NON-FASTING; NON-FASTING; NON-FASTING HEMOGLOBIN [...] A1c for diagnosis of diabetes for children. MAGNESIUM (622) Reviewed date:05/26/2025 09:39:45 AM Interpretation: Performing Lab:LV, [facility] Csgn5373 [place] [facility], [place] EeaoZR[address] Brady Brown Notes/Report: NON-FASTING; NON-FASTING; NON-FASTING MAGNESIUM 1.6 1.5-2.5 mg/dL BASIC METABOLIC PANEL (27292 ) Reviewed date:05/26/2025 09:39:45 AM Interpretation: Performing Lab:LV, [facility] Aouv9206 [place] [facility], [facility] CenterQfhoWA[address] Brady Brown Notes/Report: NON-FASTING; NON-FASTING; NON-FASTING GLUCOSE [...] 30 20-32 mmol/L CALCIUM 10.3 8.6-10.4 mg/dL M-Renal Function Panel Reviewed date:02/04/2025 10:26:09 AM [...] date:02/07/2025 07:26:01 PM Interpretation: Performing Lab: Notes/Report: [id number] 26 . pg/mL Reference Range: Adults: 21 - 65 [id number] <10 . pg/mL This test was developed and its performance characteristics determined by [facility]. It has not been cleared or approved by the Food and Drug Administration. [id number] 24 . pg/mL This test was developed and its performance characteristics determined by [facility]. It has not been cleared or approved by the Food and Drug Administration. Performed at: [facility] [address] [place] [id number] Registered Medical Assistant: Jerson Cameron MD, Phone: [phone] M-Urine Culture Reviewed date:02/08/2025 01:59:16 PM Interpretation: Performing Lab: Notes/Report: CUU ORGANISM 1: Escherichia coli RX CA: R- Resistant S- Susceptible I- Intermediate * Not on [facility]U [place] Count 50,000 - 60,000 RX CA: R- Resistant S- Susceptible I- Intermediate * Not on [facility] CUU RX CA: R- Resistant S- Susceptible I- Intermediate * Not on [facility] CUU RX CA: R- Resistant S- Susceptible I- Intermediate * Not on [facility] CUU Escherichia coli: REACTION RX CA: R- Resistant S- Susceptible I- Intermediate * [facility]8 S RX CA: R- Resistant S- Susceptible I- Intermediate * Not on [facility]U Ampicillin >16 R RX CA: R- Resistant S- Susceptible I- Intermediate * [facility] Aztreonam <=2 S RX CA: R- Resistant S- Susceptible I- Intermediate * [facility] Cefepime <=1 S RX CA: R- Resistant S- Susceptible I- Intermediate * [facility] Ceftazid[facility] <=2 S RX CA: R- Resistant S- Susceptible I- Intermediate * [facility] Ceftriaxone 4 R RX CA: R- Resistant S- Susceptible I- Intermediate * [facility] Ciprofloxacin <=0.25 S RX CA: R- Resistant S- Susceptible I- Intermediate * [facility] Ertapenem <=0.25 S RX CA: R- Resistant S- Susceptible I- Intermediate * Not on [facility] CUU Gentamicin <=2 S RX CA: R- Resistant S- Susceptible I- Intermediate * [facility] Levofloxacin <=0.5 S RX CA: R- Resistant S- Susceptible I- Intermediate * [facility] Meropenem <=0.5 S RX CA: R- Resistant S- Susceptible I- Intermediate * [facility] Nitrofurantoin <=16 S RX CA: R- Resistant S- Susceptible I- Intermediate * Not on [facility] CUU Tetracycline <=2 S RX CA: R- Resistant S- Susceptible I- Intermediate * [facility] Tobramycin <=2 S RX CA: R- Resistant S- Susceptible I- Intermediate * Not on [facility]U Trimethoprim/Sulfame th oxazole >2/38 R RX CA: R- Resistant S- Susceptible I- Intermediate * [facility] Piperacillin/Tazobac ta m <=2/4 S RX CA: R- Resistant S- Susceptible I- Intermediate * Not on [facility] CUU RX CA: R- Resistant S- Susceptible I- Intermediate * Not on [facility] H-IPTH Reviewed date:02/04/2025 10:26:08 AM Interpretation: Performing Lab: Notes/Report: PTHINT 5.7 7.5-53.5 pg/mL H-MALBCREA Reviewed date:02/04/2025 10:26:08 AM Interpretation: Performing Lab: Notes/Report: Units: mg/g creat Normal: 0 - 29 Moderately Increased: 30 - 300 Severely Increased: >300 UCREAT 76 Not Estab. mg/dL Random urine reference range not established. 24 hour urine samples recommended. MICROALB 6.500 0-16.7 mg/L MALBCREAT 8.5 CAROTID DUPLEX Reviewed date:12/06/2024 12:21:22 PM Interpretation: Performing Lab: Notes/Report: THYROID PANEL WITH TSH (7444 ) Reviewed date:03/14/2025 04:29:00 PM Interpretation: Performing Lab:CB, [facility] [id number] [facility], [facility] CenterIhpsQE[address] Brady Brown Notes/Report: NON-FASTING; NON-FASTING; NON-FASTING; NON-FASTING; NON-FAST FASTING:YES FASTING: YES T3 UPTAKE 31 22-35 % T4 (THYROXINE), TOTAL 7.8 5.1-11.9 mcg/dL FREE T4 INDEX (T7) 2.4 1.4-3.8 TSH 1.65 0.40-4.50 mIU/L LIPID PANEL, STANDARD (7600) Reviewed date:03/14/2025 04:29:00 PM Interpretation: Performing Lab:LV [facility] [id number] [address] [facility], [facility] CenterYxiaIM[address] Brady Brown Notes/Report: NON-FASTING; NON-FASTING; NON-FASTING; NON-FASTING; [...] LDL-C. Aryan SS et al. CHRISTINA. 2013;310(19): 9134-8116 (http://education.[facility]/faq/FAQ 164) CHOL/HDLC RATIO 4.2 <5.0 (calc) NON HDL CHOLESTEROL 123 <130 mg/dL (calc) For patients with diabetes plus 1 major ASCVD risk factor, treating to a non-HDL-C goal of <100 mg/dL (LDL-C of <70 mg/dL) is considered a therapeutic option. COMPREHENSIVE METABOLIC [facility] HOSPITALJuwan Quigley (36990) Reviewed date:03/14/2025 04:29:00 PM Interpretation: Performing Lab:LV [facility] [id number] [facility] [facility], [facility] CenterQcrsJN[address] Brady Brown Notes/Report: NON-FASTING; NON-FASTING; NON-FASTING; NON-FASTING; [...] Reviewed date:03/14/2025 04:29:01 PM Interpretation: Performing Lab:LV [facility] [id number] [address] Andrew, [facility] NyneVZ[address] Brady Brown Notes/Report: NON-FASTING; NON-FASTING; NON-FASTING; NON-FASTING; [...] MPV 9.5 7.5-12.5 fL ABSOLUTE NEUTROPHILS 6720 9811-1818 cells/uL ABSOLUTE LYMPHOCYTES 2100 850-3900 cells/uL ABSOLUTE MONOCYTES 660 200-950 cells/uL ABSOLUTE EOSINOPHILS 460 15-500 cells/uL ABSOLUTE BASOPHILS 60 0-200 cells/uL NEUTROPHILS 67.2 LYMPHOCYTES 21.0 MONOCYTES 6.6 EOSINOPHILS 4.6 BASOPHILS 0.6 HEMOGLOBIN A1c (496) Reviewed date:03/14/2025 04:29:01 PM Interpretation: Performing Lab:LV [facility] [id number] [place], [facility] SafetyZzmeLL[address] Brady Brown Notes/Report: NON-FASTING; NON-FASTING; NON-FASTING; NON-FASTING; [...] for children. VITAMIN B12/FOLATE, SERUM PA REGIS (0715) Reviewed date:03/14/2025 04:29:01 PM Interpretation: Performing Lab:LV, [facility] Uhex0200 [address] [facility], Daishu.comZeoxYA[address] Brady Brown Notes/Report: NON-FASTING; NON-FASTING; NON-FASTING; NON-FASTING; NON-FAST FASTING:YES FASTING: YES VITAMIN B12 844 832-1050 pg/mL Please Note: Although the reference range [...] 306) Reviewed date:03/14/2025 04:29:01 PM Interpretation: Performing Lab:LV, [facility] [id number] [facility], [facility] SafetyBpcaXN[address] Brady Brown Notes/Report: NON-FASTING; NON-FASTING; NON-FASTING; NON-FASTING; [...] D, (D2,D3), LC/MS/MS is recommended: order code 93176 (patients >2yrs). See Note 1 Note 1 For additional information, please refer to http://education.Taplet/faq/FAQ1 99 (This link is being provided for informational/ educational purposes only.) PTH, INTACT WITHOUT CALCIUM (54716) Reviewed date:03/14/2025 04:29:01 PM Interpretation: Performing Lab:LV [facility] [address], [place]ín DtxmQV[address] Brady Brown Notes/Report: NON-FASTING PARATHYROID HORMONE, INTACT 54 16-77 pg/mL Interpretive Guide Intact PTH Calcium ------- Normal Parathyroid Normal Normal Hypoparathyroidism Low or Low Normal Low Hyperparathyroidism Primary Normal or High High Secondary High Normal or Low Tertiary High High Non-Parathyroid Hypercalcemia Low or Low Normal High Reason For Referral Reason Needs MRI of brain, no contrast and carotid Doppler at [facility] for morning headaches with visual disturbance Diagnosis 1 Nonintractable episo dic headache, unspecified headache type (R51.9) [place] [facility] Referring Provider First Name Heladio Referring Provider Last Name Arpita Referring Provider Speciality Internal [facility] Notes Carmen Harvey 07/2025 04:02:30 PM > faxed to [facility] and they will call her Referral Priority Routine Reason Labral tear, loose b silas in shoulder joint and multiple rotator cuff tears, see Dr. Ace Royal at Diagnosis 1 Traumatic tear of ri ght rotator cuff, unspecified tear extent, initial encounter (S46.011A) Ref[place] [facility] Referring Provider First Name Heladio Referring Provider Last Name Arpita Referring Provider Speciality Internal [facility] General Notes Carmen Harvey 08/2025 02:53:47 PM > faxed and they will call her to schedule Referral Priority Routine Reason DExa scan at [facility] Diagnosis 1 Chronic kidney disea se, stage 3b (N18.32) Referral Organization [facility] Referring Provider First Name Heladio Referring Provider Last Name Arpita Referring Provider Speciality Internal M edicine Referred Organization [facility] Referred Address [address] [facility] [address] [facility], [place],[address],[place] Referred Provider Specialty Diagnostic R adiology Referral Priority Routine Medications Medication SIG (Take, Route, Frequency, Duration) Notes Start Date End Date Status dilTIAZem HCl 180 MG 1 capsule Orally Once a day Active CONSERVING DEVICE DIRECTED DIRECTED *Please review for potential replacement for e-prescription and drug interaction check* 03/22/2020 Active Losartan Potassium 50 MG TAKE 1 TABLET BY MOUTH ONCE DAILY; Duration: 90 Active Vitamin C 500 MG 1 tab(s) orally once a day; Duration: 30 day(s) Active Farxiga 10 MG TAKE 1 TABLET BY MOUTH ONCE DAILY; Duration: 90 Active Biotin 1000 MCG 1 tab(s) orally once a day Active Levothyroxine Sodium 100 MCG 1 tab(s) orally once a day; Duration: 90 days Active Magnesium Oxide 400 MG 2tabs orally once a day; Duration: 30 days Active metFORMIN HCl ER 750 MG TAKE 1 TABLET BY MOUTH ONCE DAILY; Duration: 90 Active Furosemide 40 MG 1 tablet Orally Once a day Active PEN NEEDLE 6MM 31G - ONCE A DAY; Duration: 30 DAY(S) *Please review for potential replacement for e-prescription and drug interaction check* 02/13/2020 Active Clopidogrel Bisulfate 75 MG TAKE 1 TABLET BY MOUTH ONCE DAILY; Duration: 90 Active Vitamin D3 50 MCG (2000 UT) as directed orally once a day; Duration: 30 day(s) Active Acetaminophen 500 MG 2 tab(s) orally every 6 hours prn Active Ozempic (0.25 or 0.5 MG/DOSE) 2 MG/3ML 0.25mg Subcutaneous weekly; Duration: 90 days has not started 03/30/2025 Active Carvedilol 12.5 MG 1 tab Twice a day; Duration: 90 days Active Venlafaxine HCl 100 MG 1 tab(s) orally once a day; Duration: 30 days Active Pantoprazole Sodium 40 MG TAKE [...] Fluzone High Dose IM Intramuscular 07/19/2024 Administered Fluzone High Dose IM Intramuscular 05/25/2025 Administered Boostrix IM Intramuscular 03/02/2025 Administered Arexvy [...] Status Risk Notes Problem Diabetic renal disease (279340965) Type 2 diabetes mellitus with diabetic chronic kidney disease (E11.22) Active confirmed Problem Hypomagnesemia (227810253) Hypomagnesemia (E83.42) Active confirmed Problem Paroxysmal atrial fibrillation (490815508) Paroxysmal atrial fibrillation (I48.0) Active confirmed Problem Hypothyroid (01246601) Hypothyroid (E03.9) Active confirmed Problem Atrial fibrillation (disorder) (15419251) Afib (I48.91) Active confirmed Problem Morbid obesity (229107725) Morbid obesity (E66.01) Active confirmed Problem Neuropathy (226830301) Neuropathy (G62.9) Active confirmed Problem Essential hypertension (98171311) Essential hypertension (I10) Active confirmed Problem Type 2 diabetes mellitus (33449203) Type 2 diabetes mellitus (E11.9) Active confirmed Problem Atherosclerosis of coronary artery without angina pectoris (679361301328215) Atherosclerosis of [place] coronary artery of [place] heart without angina pectoris (I25.10) Active confirmed Problem Obstructive sleep apnea (53797488) Obstructive sleep apnea (G47.33) Active confirmed Problem Uncomplicated moderate persistent asthma (644036833) Moderate persistent asthma without complication (J45.40) Active confirmed Problem Acute depression (247205693) Acute depression (F32.9) Active confirmed Problem Chronic renal failure syndrome (59234487) Chronic kidney disease, unspecified CKD stage (N18.9) Active confirmed Problem Chronic hypercapnic respiratory failure (790646876) Hypercapnic respiratory failure, chronic (J96.12) Active confirmed Problem Chronic kidney disease stage 3B (disorder) (963381159) Chronic kidney disease, stage 3b (N18.32) Active confirmed Vital Signs Heart Rate 72 /min 05/25/2025 Temperature 98 degrees Fahrenheit 05/25/2025 Blood pressure diastolic 62 mm Hg 05/25/2025 Height 5 ft 3 in in 05/25/2025 Blood pressure systolic 126 mm Hg 05/25/2025 Weight 234 lbs 05/25/2025 BMI 41.45 kg/m2 05/25/2025 Encounters Encounter Location Date Provider Diagnosis Formerly [facility] [address] [place] [address] 12/10/2024 Provider Migration [facility] [address] [address] 07/19/2024 Heladio Palm Type 2 diabetes mellitus with diabetic chronic kidney disease E11.22 ; Chronic kidney disease, stage 3b N18.32 ; Immunization(s) administered Z23 ; Paroxysmal atrial fibrillation I48.0 and Essential hypertension I10 [address] [address] 11/15/2024 Heladio Palm Nonintractable episo dic headache, unspecified headache type R51.9 and Traumatic tear of right rotator cuff, unspecified tear extent, initial encounter S46.011A [address] [address] 03/02/2025 Heladio Palm Chronic kidney disea se, stage 3b N18.32 ; Type 2 diabetes mellitus with diabetic chronic kidney disease E11.22 ; Paroxysmal atrial fibrillation I48.0 ; Atherosclerosis of [place] coronary artery of [place] heart without angina pectoris I25.10 ; Hypothyroid E03.9 ; Obstructive sleep apnea G47.33 ; Encounter for immunization Z23 and Routine medical exam Z00.[address] [address] 03/30/2025 Heladio Palm Dental abscess K04.7 ; Type 2 diabetes mellitus with diabetic chronic kidney disease E11.22 and Hospital discharge follow-up Z09 [address] [address] 05/25/2025 Heladio Besson Type 2 diabetes mellitus with diabetic chronic kidney disease E11.22 ; Chronic kidney disease, stage 3b N18.32 ; Osteoporosis screening Z13.820 ; Immunization(s) administered Z23 and Hypomagnesemia E83.42 [facility] [address] [place] [address] 09/22/2024 Heladio Besson Type 2 diabetes mellitus with diabetic chronic kidney disease E11.22 [facility] [address] [place] [address] 10/04/2024 Heladio Besson [facility] [address] [place] [address] 12/09/2024 Heladio Besson [facility] [address] [place] [address] 02/08/2025 Heladio Besson [facility] [address] [place] [address] 03/20/2025 Heladio Besson [facility] [address] [place] [address] 03/21/2025 Heladio Besson [facility] [address] [place] [address] 03/22/2025 Heladio Besson [facility] [address] [place] [address] 03/22/2025 Heladio Besson [facility] [address] [place] [address] 03/22/2025 Heladio Besson [facility] [address] [place] [address] 04/12/2025 Heladio Besson [facility] [address] [place] [address] 04/19/2025 Heladio Besson Assessments Encounter Date Diagnosis (ICD [...] Check A1c. On appropriate medications z 03/02/2025 Chronic kidney disease, stage 3b (ICD-10 [...] No changes in plan at this point 05/25/2025 Type 2 diabetes mellitus with diabetic [...] to keep and attend her appointment with Hand Icer on Jun 06. 05/25/2025 Osteoporosis screening (ICD-10 - Z13.820) Pt will be contacted by scheduling personal to set up an appointment for her DEXA scan. Pt was encouraged to continue taking her medications as prescribed. 03/30/2025 Hospital discharge follow-up (ICD-10 - Z09) Personally reviewed H&P and discharge summary as available from hospital discharge documentation. Reviewed pertinent labs and test done in the hospital. Personally reconciled medication. 03/02/2025 Paroxysmal atrial fibrillation (ICD-10 - I48.0) No evidence of recurrence. z 07/19/2024 Immunization(s) administered (ICD-10 - Z23) 07/19/2024 Paroxysmal atrial fibrillation (ICD-10 - I48.0) Follows with cardiology, still considering Watchman device. Continue Carvedilol. 03/02/2025 Atherosclerosis of [place] coronary artery of [place] heart without angina pectoris (ICD-10 - I25.10) No current cardiac symptoms z 05/25/2025 Immunization(s) administered (ICD-10 - Z23) Flu shot was administered and tolerated well. 05/25/2025 Hypomagnesemia (ICD-10 - E83.42) Labs will be drawn today and reviewed personally to evaluate efficacy of current medication regimen. Pt will be contacted with the results and adjustments made to her medication dosing accordingly. Pt was encouraged to continue her medication until then and lifestyle modifications to diet. 07/19/2024 Essential hypertension (ICD-10 - I10) Well [...] up with mammograms. Needs DEXA. Follows with GI for Mukherjee's screening. Non-smoker. No recent falls. Good functional status. Daughter is healthcare surrogate. Has a living will in place 3 word recall. Depression screening negative z Plan Of Treatment Pending Test Test Name Order Date DEXA Hip and Spine - Screening 5 Microalbumin (In-House) 03/02/2025 Physical Therapy 05/01/2022 Mammogram : Bilateral 04/22/2021 C-CMP 10/15/2020 Urine Culture, Routine 11/18/2019 Pulmonary Function Test- Complete 2022 M-Complete Blood Count Man Dif 0 M-Urinalysis and Microscopic 02/27/2020 M-Comprehensive Metabolic Panel 01/15/20 21 M-Comprehensive Metabolic Panel 04/22/20 21 M-Hemoglobin A1C 04/22/2021 M-Lipid Panel 04/22/2021 M-Lipid Panel 01/14/2021 M-Thyroid Stimulating Hormone 01/14/2021 M-Thyroid Stimulating Hormone 04/22/2021 M-Vitamin B12 04/22/2021 M-Vitamin B12 01/14/2021 M-Urine Culture 02/27/2020 LIPID PANEL, STANDARD (7600) 11/18/2023 COMPREHENSIVE METABOLIC PANEL (17336) BASIC METABOLIC PANEL (51323) 01/29/2024 CBC (INCLUDES DIFF/PLT) (6399) HEMOGLOBIN A1c (496) 11/18/2023 TSH (899) 11/18/2023 DEXA VERTEBRAL FX ASSESS 05/25/2025 Next Appt Details Provider Name:Heladiojosé miguel Palm, 06/22/2025 12:15:00 PM, [address], [address], Insurance Providers Payer Name Payer Address Payer Phone Subscriber Number Group Number Insured Name Patient Relationship to Insured Coverage Start Date Coverage End Date [place] [address] [place] [address] [phone] [id number] Kiana macMirtha Self - patient is the insured [employer] [address] [address] [place] [address] [phone] [id number] Kiana Mirtha mac Self - patient is the insured Medical [...] EGD 2018 stent Hospitalization History Reason Date(Month/Year) [facility] - 03/19- - left kidney- rupture- renal ablation 10/2019 Respiratory failure- [facility] the n transferred to - then to [facility] for rehab 08/2019
--- OUTSIDE RECORDS SUMMARY | 2025-06-01 15:59 | XMS_ITS | Encounter Summary ---
Author Organization [facility] Address [address] [place] [address] Care Team Providers Care Crown Ironer Name Role Phone Heladio Palm MD Primary Care Provider + [phone] Encounter Details Date Type Department Care Team (Latest Contact Info) Description 06/01/2025 Travel Social History Tobacco Use Types Packs/Day [...] 06/05/2025 4:00 PM EDT Office Visit [facility] [address] [facility], [address] [place] [address] 07/19/2025 1:20 PM EST Appointment [facility] [address] [place] [address] 07/26/2025 4:00 PM EST Office Visit [facility] Shelton Conrad [address] [facility], [address] [place] [address] Svetlana Olguin PA [address] [place] [address] 08/14/2025 1:30 PM EST Office Visit [facility] [address] [place] [address] 01/26/2026 11:00 AM EDT Office Visit [facility] [address] [place] [address] Luis Olivares MD [address] [facility] [address] [place] [address] documented as of this encounter Visit Diagnoses Not on filedocumented in this encounter Additional Health Concerns Infection Onset Date Last Indicated Resolved Time MRSA Comment:Added from external infection. Source: [facility]. 09/07/2019 Assessment Noted Time PHQ-9 Depression Total Score: 0 04/24/20 25 1:50 PM EDT A fall risk assessment has been complete d for the patient 04/24/2025 1:50 PM EDT A Body Mass Index follow-up plan has been documented for the patient 05/30/2025 3:57 PM EDT documented as of this encounter Care Teams Crown Ironer Relationship Specialty Start Date End Date Heladio Palm MD [address] [place] [address] PCP - General Internal Medicine 05/02/22 documented as of this encounter
--- OUTSIDE RECORDS SUMMARY | 2025-06-01 15:59 | XMS_ITS | Clinical Summary ---
Author Organization [facility] Address [address] [place] [address] Care Team Providers Care Donor Recruitment Manager Name Role Phone Heladio Palm MD Primary Care Provider + [phone] Allergies Active Allergy Reactions Criticality Noted Date Comments Ciprofloxacin Unknown - Patient states they do not know rxn details Low 10/11/2010 Codeine Anaphylaxis,Nausea, Unknown - Patient states they do not know rxn details,Other - please document in the comment field High 10/11/2010 Gadolinium Derivatives Shortness of breath High 06/08 Iodinated Contrast Media Shortness of breath High [...] tablet Take 1 tablet by mouth daily. 2 Active venlafaxine (Effoxor) 100 MG tablet Take 1 tablet by mouth daily. 2 Active cholecalcifero l (Vitamin D3) 25 MCG (1000 UT) tablet Take 1 tablet by mouth daily. Active magnesium oxide (Mag-Ox) 400 (240 Mg) MG tablet Take 1 tablet by mouth daily. Active clopidogrel (Plavix) 75 MG tablet Take 1 tablet by mouth daily. 2 Active biotin 1000 MCG tablet 1 (one) time each day at the same time. Active atorvastatin (Lipitor) 80 MG tabletIndicati ons:Coronary artery disease involving [place] coronary artery of [place] heart without angina pectoris TAKE 1 TABLET BY MOUTH 1 TIME EACH DAY. 90 tablet 3 3 Active Additional Information Patient taking differently: 80 mg Oral Daily, Reported on 05/30/2025 dapagliflozin (Farxiga) 10 MG tablet Take 1 tablet by mouth daily. Active acetaminophen (Tylenol 8 Hour) 650 MG ER tablet Take 1 tablet by mouth every 8 hours as needed for mild pain. Do not crush, chew, or split. Active furosemide (Lasix) 40 MG tablet Take 1 tablet by mouth daily. 5 Active dilTIAZem CD (Cardizem CD) 240 MG 24 hr capsule Take 1 capsule by mouth nightly. 5 Active fexofenadine (Manju) 180 MG tablet Take 1 tablet by mouth daily. Active aspirin 81 MG EC tablet Take 1 tablet by mouth daily. 5 05/30/20 26 Active predniSONE (Deltasone) 50 MG tablet Take 1 tablet by mouth 13 hours, 7, hours, and 1 hour before radiology study. 3 tablet 1 5 05/30/20 25 Discontin ued(Stop Taking at Discharge ) diphenhydrAMIN E (Benadryl) 50 MG tablet Take 1 tablet by mouth 1 hour before radiology study. 3 tablet 5 05/30/20 25 Discontin ued(Stop Taking at Discharge ) Active Problems Problem Noted Date Diagnosed Date Paroxysmal atrial fibrillation 05/30/2025 Stage 3 chronic kidney disease 08/18/2024 Elevated [...] Obstructive sleep apnea 11/09/2017 Nonalcoholic steatohepatitis 08/04/2017 Diabetes mellitus type 2, uncontrolled 7 Subclinical [...] 05/19/2023 Atypical pigmented skin lesion 04/23/2017 05/19/2023 Left ventricular hypertrophy 02/12/2017 05/28/2025 Edema, peripheral 11/27/2015 05/19/2023 Allergic rhinitis due to ani mal hair and dander 09/19/2015 05/19/2023 Encounters Date Type Department Care Team Description 06/01/2025 Travel 06/01/2025 Telephone [facility] [place] [facility] [address] [facility], [address] [place] [phone] Lashonda William, INSIDE STEWARD/STEWARDESS 05/30/2025 9:15 AM EDT - 05/30/2025 10:55 AM EDT Surgery [facility] [facility] [address] [place] [phone] Bryan Allen MD Left atrial appendage closure (transvenous) [34167 (CPT )] 05/30/2025 8:00 AM EDT - 05/30/2025 4:43 PM EDT Hospital Encounter [facility] [address] [place] [phone] Bryan Allen MD Paroxysmal atrial fibrillation (CMS/HCC) Discharge Disposition: Home or Self Care 05/30/2025 Travel 05/25/2025 Telephone [facility] [place] [facility] [address] [facility], [address] [place] [address] Lashonda William, INSIDE STEWARD/STEWARDESS 05/23/2025 Travel 05/03/2025 Telephone [facility] [place] [facility] [address] [facility], [address] [place] [address] Alejandra Camacho MD 04/27/2025 Episode Changes [facility] [address] [address] SherNola Soraida 04/24/2025 2:10 PM EDT Office Visit [facility] [address] [place] [address] Bryan Allen MD Paroxysmal atrial fibrillation (CMS/HCC) (Primary Dx) 04/24/2025 Travel 04/23/2025 Travel 04/14/2025 Telephone [facility] [address] [place] [address] None, None 03/13/2025 Telephone [facility] [place] [facility] [address] [facility], [address] [place] [address] Alejandra Camacho MD 03/12/2025 Travel 03/02/2025 Telephone [facility] [address] [place] [address] Luis Olivares MD from Last 3 Months Immunizations Immunization Administration [...] Mass Index 44.07 05/30/2025 8:38 AM EDT Plan of Treatment Upcoming Encounters Date Type Department Care Team (Late st Contact Info) Description 06/05/2025 4:00 PM EDT [facility] [address] [facility], [address] [place] [address] 07/19/2025 1:20 PM EST Appointment [facility] [address] [place] [address] 07/26/2025 4:00 PM EST Office Visit [facility] [place] [address] [facility], [address] [place] [address] Svetlana Olguin PA [address] [place] [phone] 08/14/2025 1:30 PM EST [facility] Visit [facility] [address] [place] [address] 01/26/2026 11:00 AM EDT Office Visit [facility] [address] [facility] [place] [address] Luis Olivares MD [address] [place] [address] Health Maintenance Due Date Last Done Comments [facility]-Bone Density Scan 1950 [facility]-/Child/Adol SDOH Screenings 1950 Diabetes: Dental Exam 1959 [facility]- SDOH Screenings 1967 [facility]-Adult SDOH Screenings 1967 [facility]-Hepatitis A Vaccines (1 of 2 - Risk 2-dose series) 02/02/1968 [facility]-Pneumococcal Vaccine: 50+ Years (2 of 2 - PPSV23, PCV20, or PCV21) 07/22/2016 05/27/2016 [facility]-Medicare Annual Wellness (AWV) 02/24/2019 02/24/2018 [facility]-Diabetes: Hemoglobin A1C 05/22/2020 11/23/2019, 11/23/2019, 09/07/2019, Additional history exists [facility]-Zoster Vaccines (3 of 3) 06/14/2024 04/19/2024, 04/23/2017 [id number] Vaccine (4 - 2024- season) 2025 06/27/2021, 11/01/2020, 10/04/2020 [facility]-Depression Screening 04/24/2026 04/24/2025, 04/07 [facility]-DTaP,Tdap,and Td Vaccines (2 - Td or Tdap) 03/02/2035 03/02/2025 [facility]-Hepatitis C Screening Completed 12/13/2019, [facility]-Breast Cancer Screening Discontinued 11/28/2021, 11/28/2021, 11/30/2018, Additional history exists [facility]-RSV Vaccine: 60+ Years or Completed 04/19/2024 [facility]-Obesity Intervention Completed 025, 04/24/2025, 04/24/2025, Additional history exists [facility]-Influenza Vaccine Completed 05/25/2025 , 07/19/2024, 07/03/2022, Additional history exists HPV Vaccines Aged Out [...] on patient's age to complete this topic Medical Devices Implanted Type Area Mechanical Maintenance Foreman Device Identifier Shelf Expiration Date Model / Serial / Lot Watchman Fxd Curve Dble 20mm - [id number] Implanted:Qty : 1 on 05/30/2025 by Bryan Allen MD at [facility] [employer] Col[employer]-[id number] 85 03/06/2028 [id number] / / [id number] Device Watchman Flx Pro Shaunna Closure 24mm - [id number] Implanted:Qty : 1 on 05/30/2025 by Bryan Allen MD at [facility] [employer]-[id number] 02/23/2028 [id number] / / [id number] Device Watchman Flx Pro Procedure - [id number] Implanted:Qty : 1 on 05/30/2025 by Bryan Allen MD at [facility] [employer] Colour-[id number] / / Procedures Procedure Name Priority Date/Time Associated Diagnosis Comments ECHO, ADULT TRANSESOPHAGEAL INTRAPROCEDURAL W/ 3D Routine 05/30/2025 4:17 PM EDT ECHO, ADULT TRANSTHORACIC LIMITED Routine 05/30/2025 3:25 PM EDT LEFT ATRIAL APPENDAGE CLOSURE (TRANSVENOUS) Routine 05/30/2025 11:49 AM EDT Paroxysmal atrial fibrillation (CMS/HCC) POCT CREATININE ISTAT UNSOLICITED RESULTS Routine 05/30/2025 9:01 AM EDT MAGNESIUM, PLASMA STAT 05/30/2025 8:5 7 AM EDT BASIC METABOLIC PANEL, PLASMA STAT 05/30/2025 8:57 AM EDT CBC W/O DIFFERENTIAL STAT 05/30/2025 8:57 AM EDT HEPATITIS C ANTIBODY W/REFLEX TO HCV QUANT PCR Routine 12/13/2019 6:01 PM EDT HEMOGLOBIN A1C Routine 11/23/2019 2:45 PM EDT from Last 3 Months or Most Recently Relevant to Health Maintenance Results * ECHO, ADULT TRANSESOPHAGEAL INTRAPROCEDURAL W/ [...] captured. The probe was inserted by the front desk lead. There was no probe insertion difficulty. Moderate [...] is no recent study available for direct [id number]-zh-[id number] comparison. us Bryan Allen MD CV ECHO PROCEDURES Final R esult * ECHO, ADULT TRANSTHORACIC LIMITED (05/30/2025 3:25 PM EDT) BSA 2.02 m2 CASSIDY ISCV Height 154.9 CASSIDY QlueV Weight 105.7 CASSIDY QlueV Anatomical Region Laterality Modality Echocardiography Narrative 05/30/2025 [...] Procedure Details Background Information: The patient is [id number] woman with atrial fibrillation, hypertension, diabetes mellitus, [...] was obtained: 1) Right common femoral vein: 8-Yakut short Terumo sheath (preclose deployed) Antibiotics were given. Heparin for ACT>250 was given. The 8-Yakut sheath was exchanged for an 8.5-Yakut, 63 cm, 45-degree curve VersaCross sheath. The [...] removed over the pigtail wire. The Watchman 14-Yakut double curve sheath was then advanced over the wire into the left atrium. A 6-Yakut Pigtail catheter was advanced through the sheath [...] (ABNORMAL) POCT creatinine (05/30/2025 9:01 AM EDT) Pathologist [facility] Creatinine, Point of Care 1.3(H) 0.6 - 1.1 mg/dL 05/30/2025 9:05 AM EDT [facility] POCT eGFR 43 mL/min/1. 73m*2 05/30/2025 9:05 AM EDT [facility] Special Technical Operations Officer ID Chey Joel 05/30/2025 9:05 AM EDT [facility] Device ID [id number] 05/30/2025 9:05 AM EDT HEALTHCARE [facility] Comment 05/30/2025 9:05 AM EDT [facility] Comment:Testing performed on i-STAT at the point of care. Reported eGFRcr in mL/min/1.73m2 is based the CKD-EPI 2020 equation that does not use a race coefficient. Blood Venous blood specimen / Unknown 05/30/2025 9:01 AM EDT 05/30/2025 9:05 AM EDT us Bryan Allen MD LAB POINT OF CARE TEST DOCKED DEVICE UNSOLICITED RESULTS Final Result [facility] [address] LAB [address] [place] [address] * Hemogram (CBC) (05/30/2025 8:57 AM EDT) WBC Count 8.97 3.70 - 10.30 10*3/uL LAB HEMATOLOGY METHOD 05/30/2025 9:19 AM EDT [facility] RBC Count 4.72 3.90 - 5.20 10*6/uL LAB HEMATOLOGY METHOD 05/30/2025 9:19 AM EDT [facility] HGB 14.4 11.2 - 15.7 g/dL LAB HEMATOLOGY METHOD 05/30/2025 9:19 AM EDT [facility] HCT 43.8 34.0 - 45.0 % LAB HEMATOLOGY METHOD 05/30/2025 9:19 AM EDT [facility] Platelet Count 249 155 - 369 10*3/uL LAB HEMATOLOGY METHOD 05/30/2025 9:19 AM EDT [facility] MCV 93 79 - 98 fL LAB HEMATOLOGY METHOD 05/30/2025 9:19 AM EDT [facility] MCH 30.5 26.0 - 32.0 pg LAB HEMATOLOGY METHOD 05/30/2025 9:19 AM EDT [facility] MCHC 32.9 30.7 - 35.5 g/dL LAB HEMATOLOGY METHOD 05/30/2025 9:19 AM EDT [facility] RDW 13.0 11.5 - 14.5 % LAB HEMATOLOGY METHOD 05/30/2025 9:19 AM EDT [facility] MPV 9.8 8.8 - 12.5 fL LAB HEMATOLOGY METHOD 05/30/2025 9:19 AM EDT [facility] nRBC 0.0 <=0.0 per 100 WBCs LAB HEMATOLOGY METHOD 05/30/2025 9:19 AM EDT [facility] Blood Venous blood specimen / Unknown Venipuncture / Unknown 05/30/2025 8:57 AM EDT 05/30/2025 9:11 AM EDT Jignesh GORDON LAB BLOOD ORDERABLES Final R esult Performing Organization Address City/[facility]/ZIP Co de Phone Number [facility] [address] [place] [address] * (ABNORMAL) Magnesium (05/30/2025 8:57 AM EDT) Magnesium, Plasma 1.8(L) 1.9 - 2.4 mg/dL 05/30/2025 9:37 AM EDT [facility] Blood Venous blood specimen / Unknown Venipuncture / Unknown 05/30/2025 8:57 AM EDT 05/30/2025 9:09 AM EDT Jignesh GORDON LAB BLOOD ORDERABLES Final R esult [facility] [address] [place] [address] * (ABNORMAL) Basic metabolic panel (05/30/2025 8:57 AM EDT) Glucose, Plasma 271(H) 74 - 99 mg/dL 05/30/2025 9:37 AM EDT [facility] BUN, Plasma 27(H) 8 - 23 mg/dL 05/30/2025 9:37 AM EDT [facility] Creatinine, Plasma 1.10 0.60 - 1.10 mg/dL 05/30/2025 9:37 AM EDT [facility] BUN/Creatinine Ratio 25 05/30/2025 9:37 AM EDT [facility] Sodium, Plasma 138 136 - 145 mmol/L 05/30/2025 9:37 AM EDT [facility] Potassium, Plasma 4.7 3.6 - 4.9 mmol/L 05/30/2025 9:37 AM EDT [facility] Comment:Hemolyzed, result ma y be falsely increased. Chloride, Plasma 102 97 - 107 mmol/L 05/30/2025 9:37 AM EDT [facility] CO2, Plasma 22 22 - 29 mmol/L 05/30/2025 9:37 AM EDT [facility] Anion Gap 14 6 - 16 mmol/L 05/30/2025 9:37 AM EDT [facility] Total Calcium, Plasma 9.8 8.9 - 10.2 mg/dL 05/30/2025 9:37 AM EDT [facility] eGFRcr 52.2 mL/min/1.7 3m*2 05/30/2025 9:37 AM EDT [facility] Comment:Reported eGFRcr in m L/min/1.73m2 is based the CKD-EPI 2020 equation that does not use a race coefficient. Blood Venous blood specimen / Unknown Venipuncture / Unknown 05/30/2025 8:57 AM EDT 05/30/2025 9:09 AM EDT us Jignesh GORDON LAB BLOOD ORDERABLES Final R esult [facility] [address] [place] [address] * Hepatitis C Antibody (12/13/2019 6:01 PM EDT) Pathologist [facility] Hepatitis C Antibody NEGATIVE Reference Range: Negative [...] <6.0% Children and Adolescents <7.5% . Source: [place] [employer]. Standards of medical care in [...] Concerns Infection Onset Date Last Indicated MRSA Comment:Added from external infection. Source: [facility]. 09/07/2019 Insurance MEDICARE [facility] Advance Directives * Full Code (Latest Code Status on File) Date Activated Date Inactivated Comments 05/30/2025 12:19 PM 05/30/2025 6:48 PM Question Answer Comments Patient has decision-making capacity? Yes Care Teams Donor Recruitment Manager Relationship Specialty Start Date End Date Heladio Palm MD [address] [place] [address] PCP - General Internal Medicine 05/02/22
--- OUTSIDE RECORDS SUMMARY | 2025-06-01 16:00 | XMS_ITS | Encounter Summary ---
Author Organization Healthcare Address [address] [place] [address] Care Team Providers Care Mechanotherapist Name Role Phone Heladio Palm MD Primary Care Provider + [phone] Encounter Details Date Type Department Care Team (Late st Contact Info) Description 04/14/2025 Telephone [facility] [place] [address] [place] [address] None, None [address] [id number] Social History Tobacco Use Types Packs/Day Years [...] 04/24/2025 1:50 PM EDT Nola Sher * How difficult have these problems made it for you to do your work, take care of things at home, or get along with other people? Answer Date of Assessment Author Not difficult at all 04/24/2025 1:50 PM EDT Nola Morgan documented as of this encounter Miscellaneous Notes [...] get scheduled. I have requested records from [facility]. * Telephone Encounter - Nola Sher - [...] getting a watchman placed, currently inpatient at [facility]? Best contact number: [phone] (mobile) Optimal time of day to reach caller: ANYTIME Additional comments/information from caller: None Note: Please do not reply to this message. Follow-up communication and further actions as a result of this message need to be communicated with the patient directly, if the patient is not active onMyChart. If the patient is active on MyChart, they will receive notification of the communication/outcome via [employer]. documented in this encounter Plan of Treatment Upcoming Encounters Date Type Department Care Team (Late st Contact Info) Description 06/05/2025 4:00 PM EDT Office Visit [facility] Nephrology, Bone & Mineral Metabolism [address], [address] [place] [address] 07/19/2025 1:20 PM EST Appointment [facility] [address] [place] [address] 07/26/2025 4:00 PM EST Office Visit [facility] [place] [address] [facility], [address] [place] [address] Svetlana Olguin PA [address] [place] [address] 08/14/2025 1:30 PM EST Office Visit [facility] [address] [place] [address] 01/26/2026 11:00 AM EDT [facility] Visit [facility] [address] [facility] [place] [address] Luis Olivares MD [address] [place] [address] documented as of this [...] documented as of this encounter Care Teams Mechanotherapist Relationship Specialty Start Date End Date Heladio Palm MD [address] [place] [address] PCP - General Internal Medicine 05/02/22 documented as of this encounter
--- OUTSIDE RECORDS SUMMARY | 2025-06-01 16:01 | XMS_ITS | Clinical Summary ---
Author Organization [facility] Address [address] [place] [address] Care Team Providers Care Workday Manager Name Role Phone Dano Romero MD Primary Care Provider +[phone] Allergies Active Allergy Reactions Criticality Noted Date [...] (LIPITOR) 40 MG tablet 0 Active Biotin 21464 MCG tablet 1 Active carvedilol (COREG) 25 [...] 1- dose 75+ series) 02/02/2024 INFLUENZA VACCINE 04/07/2025 06/27/2021, , 06/04/2020, Additional history exists COVID-19 Vaccine (4 - 2024-2 6 season) 2025 06/27/2021, 11/01/2020, 10/04/2020 COLONOSCOPY 04/28/2027 04/28/2022, 05/19/2018 [...] - 5.60 % 09/07/2019 4:51 PM EST [facility] Blood Venipuncture / Unknown 09/07/2019 4:10 PM EST 09/07/2019 4:19 PM EST Narrative [facility] - 09/07/2019 4:51 PM EST Hemoglobin A1C Ranges: Increased Risk for Diabetes 5.7% to 6.4% Diabetes >= 6.5% Diabetic Goal < 7.0% Sammie Morales DNP, ELECTRIC DETECTOR OPERATOR LAB BLOOD ORDERABLES Fi nal Result [facility]
[address] [place] [address], * SCANNED - INFLUENZA (06/24/2019) Huber Grossman MD CHART REVIEW TABS Final Re sult * (ABNORMAL) Lipid Panel (03/25/2019 10:33 AM EDT) Total Cholesterol 152 0 - 200 mg/dL 03/25/2019 6:52 PM EDT [facility] Triglycerides 165(H) 0 - 150 mg/dL 03/25/2019 6:52 PM EDT [facility] HDL Cholesterol 37(L) 40 - 60 mg/dL 03/25/2019 6:52 PM EDT [facility] LDL Cholesterol 82 0 - 100 mg/dL 03/25/2019 6:52 PM EDT [facility] VLDL Cholesterol 33 5 - 40 mg/dL 03/25/2019 6:52 PM EDT [facility] LDL/HDL Ratio 2.22 03/25/2019 6:52 PM EDT [facility] Blood Left upper arm structure / Unknown Venipuncture / Unknown 03/25/2019 10:33 AM EDT 03/25/2019 10:33 AM EDT Narrative [facility] - 03/25/2019 6:52 PM EDT [...] MD LAB BLOOD ORDERABLES Final Re sult [facility]
[address] [place] [address], * SCANNED - EYE EXAM (01/05/2019) Anatomical Region Laterality Modality Other Huber Grossman MD CHART REVIEW TABS Final Re sult * Hepatitis C Antibody (12/21/2018 10:57 AM EDT) Hepatitis C Ab Non-Reacti ve Non-Reacti ve 12/21/2018 7:17 PM EDT [facility] Blood Right upper arm structure / Unknown Venipuncture / Unknown 12/21/2018 10:57 AM EDT 12/21/2018 10:58 AM EDT us Huber Grossman MD LAB BLOOD ORDERABLES Final Re sult [facility]
[address] [place] [address], [place] [phone] from Last 3 Months or Most Recently Relevant to Health Maintenance Additional Health Concerns Infection Onset Date Last Indicated 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 09/08/2019 09/08/2019 Insurance MEDICARE A & B [facility] Advance Directives * CPR (Attempt to [...] pulse or is breathing): Full Care Teams Workday Manager Relationship Specialty Start Date End Date Dano Romero MD [address] [place] [address] PCP - General Internal Medicine 09/29/19
--- OUTSIDE RECORDS SUMMARY | 2025-06-01 16:01 | XMS_ITS | Encounter Summary ---
Author Organization Healthcare Address [address] [place] [address] Care Team Providers Care Crinkling Machine Operator Name Role Phone Heladio Palm MD Primary Care Provider + [phone] Encounter Details Date Type Department Care Team [...] 06/05/2025 4:00 PM EDT Office Visit [facility] Nephrology, Bone & Mineral Metabolism [address] [facility], [address] [place] [address] 07/19/2025 1:20 PM EST Appointment [facility] [address] [place] [address] 07/26/2025 4:00 PM EST Office Visit [facility] [place] [address] [facility], [address] [place] [address] Svetlana Olguin PA [address] [place] [address] 08/14/2025 1:30 PM EST [facility] Visit [facility] [address] [place] [address] 01/26/2026 11:00 AM EDT Office Visit [facility] [address] [facility] [place] [address] Luis Olivares MD [address] [place] [address] documented as of this encounter [...] documented as of this encounter Care Teams Crinkling Machine Operator Relationship Specialty Start Date End Date Heladio Palm MD [address] [place] [address] PCP - General Internal Medicine 05/02/22 documented as of this encounter
--- OUTSIDE RECORDS SUMMARY | 2025-06-01 16:02 | XMS_ITS | Encounter Summary ---
Author Organization [facility] Address [address] [place] [address] Care Team Providers Care Speech Language Pathology Assistant Name Role Phone Heladio Palm MD Primary Care Provider + [phone] Encounter Details Date Type Department Care Team (Late Contact Info) Description 04/27/2025 Episode Changes [facility] [place] [address] [facility] [place] [address] [place] [address] Social History Tobacco Use Types Packs/Day Years [...] Department Care Team (Late Contact Info) Description 06/05/2025 4:00 PM EDT Office Visit [facility] Nephrology, Bone & Mineral Metabolism [address] [facility] [place] [facility], [address] [place] [address] 07/19/2025 1:20 PM EST Appointment [facility] [address] [place] [address] 07/26/2025 4:00 PM EST Office Visit [facility] [place] [address] [facility] [place] [facility], [address] [place] [address] Svetlana Olguin PA [address] [place] [address] 08/14/2025 1:30 PM EST Office Visit [facility] [address] [place] [address] 01/26/2026 11:00 AM EDT Office Visit [facility] [address] [facility] [place] [address] Luis Olivares MD [address] [place] [address] documented as of this encounter [...] documented as of this encounter Care Teams Speech Language Pathology Assistant Relationship Specialty Start Date End Date Heladio Palm MD [address] [place] [address] PCP - General Internal Medicine 05/02/22 documented as of this encounter
--- OUTSIDE RECORDS SUMMARY | 2025-06-01 16:02 | XMS_ITS | Encounter Summary ---
Author Organization Healthcare Address [address] [place] [address] Care Team Providers Care Medical Technologist Prn Name Role Phone Heladio Palm MD Primary Care Provider + [phone] Encounter Details Date Type Department Care Team [...] Nola Morgan documented as of this encounter Plan of Treatment Upcoming Encounters Date Type Department Care Team (Late st Contact Info) Description 06/05/2025 4:00 PM EDT Office Visit [facility] Nephrology, Bone & Mineral Metabolism [address], [address] [place] [address] 07/19/2025 1:20 PM EST Appointment [facility] [address] [place] [phone] 07/26/2025 4:00 PM EST Office Visit [facility] [place] [facility] [address], [address] [place] [address] Svetlana Olguin PA [address] [place] [address] 08/14/2025 1:30 PM EST Office Visit [facility] [address] [place] [address] 01/26/2026 11:00 AM EDT Office Visit [facility] [address] [place] [address] Luis Olivares MD [address] [facility] [address] [place] [address] documented as of this [...] documented as of this encounter Care Teams Medical Technologist Prn Relationship Specialty Start Date End Date Heladio Palm MD [address] [place] [address] PCP - General Internal Medicine 05/02/22 documented as of this encounter
[2025-06-01 16:51] LABS: Hematocrit 43.0 % (37.0-47.0); Hemoglobin 13.8 g/dL (12.2-16.2); Immature Granulocytes % 0.4 %; Mean Corpuscular HGB Conc 32.1 g/dL (31.8-35.4); Mean Corpuscular Hemoglobin 30.9 pg (27.0-31.2); Mean Corpuscular Volume 96.2 fl (81-99); Nucleated Red Blood Cells % 0 %; Platelet Count 228 K/mm3 (142-424); Red Blood Count 4.47 M/mm3 (4.20-5.40); Red Cell Distribution Width-SD 47.8 fL; White Blood Count 9.7 K/mm3 (4.8-10.8)
[2025-06-01 18:21] LABS: Albumin Level 3.7 g/dl (3.5-5.0); Chloride 100 mmol/L (98-107); Sodium 141 mmol/L (136-145)
[2025-06-01 18:22] LABS: Potassium 4.3 mmoL/L (3.5-5.1)
[2025-06-01 18:24] LABS: Alanine Aminotransferase 13 U/L (12-78); Anion Gap 13.3 mEq/L (5-15); Aspartate Amino Transferase 19 U/L (14-36); Bilirubin,Unconjugated 0.3 mg/dL (0.0-1.1); Blood Urea Nitrogen 31 mg/dl (7-17); Carbon Dioxide 32 mmol/L (22.0-30.0); Cholesterol 160 mg/dl (140-200); Creatinine,Serum 1.20 mg/dl (0.52-1.04); Estimated Glomerular Filt Rate 44 ml/min (>60); GFR (African American) 53 ML/MIN (>60); Total Protein,Serum 6.5 g/dl (6.3-8.2); Triglycerides 265 mg/dl (30-150)
[2025-06-01 18:25] LABS: Alkaline Phosphatase 79 U/L (38-126); Bilirubin,Direct 0.0 mg/dl (0.0-0.4); Bilirubin,Indirect 0.3 mg/dL (0.0-0.9); Bilirubin,Total 0.3 mg/dl (0.2-1.3); Calcium 9.7 mg/dl (8.4-10.2); Glucose 237 mg/dl (74-100); HDL Cholesterol 43 mg/dl (40-60); Magnesium 1.8 mg/dl (1.6-2.3)
[2025-06-01 18:43] LABS: Free T4 (Free Thyroxine) 1.18 ng/dl (0.78-2.19)
[2025-06-01 18:55] LABS: Thyroid Stimulating Hormone < 0.02 uIU/mL (0.465-4.68)
== END 2025-06-01 23:59 | disposition home or self-care (01) ==
LOC: LAB 15:27
PROVIDERS: PCP Internal Medicine Adolescent Medicine; Visit Provider Physician Assistant
DX: E83.42 Hypomagnesemia (principal); I10 Essential (primary) hypertension; E03.9 Hypothyroidism, unspecified; I48.0 Paroxysmal atrial fibrillation; E78.5 Hyperlipidemia, unspecified
CPT/HCPCS: 36415; 80048; 80061; 80076; 83735; 84439; 84443; 85025

== ENCOUNTER 2025-06-28 16:29 | Emergency (ER) | payer MEDICARE, OTHER, SELFPAY ==
--- OUTSIDE RECORDS SUMMARY | 2019-05-11 19:56 | XMS_ITS | Encounter Summary ---
[facility] Address [address] [place] [address] Care Team Providers Care Barber Name Role Phone Huber Grossman MD Primary Care Provider Barbara valladares Reason for Referral * Diagnostic Medical (Routine) - Closed Specialty Diagnoses / Procedures Referred By Contac t Referred To Contact Sleep Medicine Diagnoses DELL (obstructive sleep apnea) Procedures Polysomnography 4 or More Parameters Luis Galvan MD Phone: tel: fax: [facility] [address] [address] Phone: tel: fax: Referral ID Status Reason Start Date Expiration Date Visits Re quested Visits Authorized [id number] Closed 12/20/2018 12/20/2019 1 1 Reason for Visit * Diagnostic Medical (Routine) - Closed Specialty Diagnoses / Procedures Referred By Contac t Referred To Contact Sleep Medicine Diagnoses DELL (obstructive sleep apnea) Procedures Polysomnography 4 or More Parameters Luis Galvan MD Phone: tel: fax: [facility] [address] [address] Phone: tel: fax: Referral ID Status Reason Start Date Expiration Date Visits Re quested Visits Authorized [id number] Closed 12/20/2018 12/20/2019 1 1 Encounter Details Date Type Department Care Team (Late st Contact Info) Description 05/11/2019 7:56 PM EDT Hospital Encounter [facility] [address] [place] [phone] Luis Galvan MD [address] [place] [address] DELL (No follow-up); DELL (obstructive sleep apnea) [...] She underwent a home sleep study at [facility] a while ago which was [...] was noted to be present by the patient care technician in attendance. D) Oxygen saturation: Oxygen [...] documented as of this encounter Care Teams Barber Relationship Specialty Start Date End Date Huber Grossman MD PCP - General Family Medicine 02/08/18 09/28/19 documented as of this encounter
--- OUTSIDE RECORDS SUMMARY | 2024-12-10 17:30 | XMS_ITS ---
Author Organization [facility] Address [address] [facility] [address] [place] [address] Care Team Providers Care Operations Associate Name Role Phone Heladio Palm Primary Care Provider Migration, Provider Unavailable Unavailable Allergies Allergen (clinical drug ingredient) Drug/Non Drug Allergy documented on EMR Reaction Allergy Type Onset Date Status DECONGESTANTS (uncoded) Unknown Allergy Active IV CONTRAST (uncoded) Unknown Allergy Active SULFA DRUGS (uncoded) Unknown Allergy Active ciprofloxacin Cipro tingling lips an d tongue Drug Allergy Active codeine Codeine Unknown Drug Allergy Active Penicillin anaphylaxis Drug Allergy Acti ve REASON FOR VISIT [facility] To [facility] Conversion Encounter Medications Medication SIG (Take, Route, [...] Active Encounters Encounter Location Date Provider Diagnosis [facility] [address] [facility] [address] [place] [address] 12/10/2024 Provider Migration Plan Of Treatment Medication Medication Name Sig Start Date Stop Date Notes Venlafaxine HCl 100 MG 1 tab(s) orally o nce a day; Duration: 30 days Progress Notes * Karo VELAZQUEZOB:[birth year] (75 yo F)Acc No.[id number]:12/10/2024 Patient: Juwan Mirtha RUST Provider: Yakov centeno Migration :1950 A ge:74 Y S ex:Female Date:12/10/2024 Address:[address] [place] [phone] Pcp:Heladio Palm Subjective: * Chief Complaints: * 1 . [facility] Conversion Encounter. * 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: * Medications: [...] * Treatment: * * Electronic signature of Prov ider Migration on 06/28/2025 at 05:03 PM EDT Sign off status: Pending * Provider: Yakov centeno Migration Date: 0 12/10/2024 Generated for Maggy shine/Tila/Loni on: 05:03 PM EDT
--- OUTSIDE RECORDS SUMMARY | 2025-01-17 10:00 | XMS_ITS ---
Author Organization [facility] Address [address] [place] [address] Care Team Providers Care Transportation Aid Name Role Phone Heladio Palm Primary Care Provider [phone] REASON FOR VISIT AW Encounters Encounter Location Date Provider Diagnosis [facility] [address] [address] 01/17/2025 Heladio Palm Plan Of Treatment No Information Progress Notes * Karo VILLAOB:[birth year] (75 yo F)Acc No.[id number]:01/17/2025 Progress Notes Patient: Mirtha LOAMX Provider: Haritha Palm MD :1950 A ge:74 Y S ex:Female Date:01/17/2025 Address:[address] [place], [place] [phone] Subjective: * Chief Complaints: * 1 . AW. * 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: Objective: * Vitals: Assessment: Plan: * Treatment: * * Electronic signature of Jeffy Palm MD FAAP on 06/28/2025 at 05:05 PM EDT Sign off status: Pending * Provider: Haritha Palm MD Date: 0 01/17/2025 Generated for Printi ng/Faxing/eTransmitting on: 1 05:05 PM EDT
--- OUTSIDE RECORDS SUMMARY | 2025-03-28 10:30 | XMS_ITS ---
Author Organization [facility] Address [address] [place] [address] Care Team Providers Care Core Finisher Name Role Phone Heladio Palm Primary Care Provider REASON FOR VISIT lab f/u Encounters Encounter Location Date Provider Diagnosis [place] [address] [address] 03/28/2025 Heladio Palm Plan Of Treatment No Information Progress Notes * LESTERKaro BOOOB:[birth year] (75 yo F)Acc No.[id number]:03/28/2025 Progress Notes Patient: Mirtha LOMAX Provider: Haritha Palm MD :1950 A ge:75 Y S ex:Female Date:03/28/2025 Address:[address] [place] [id number] Subjective: * Chief Complaints: * 1 . Lab f/u. * 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: Objective: * Vitals: Assessment: Plan: * Treatment: * * Electronic signature of Jeffy Palm MD FAAP on 06/28/2025 at 05:01 PM EDT Sign off status: Pending * Provider: Haritha Palm MD Date: 0 03/28/2025 Generated for Printi ng/Faxing/eTransmitting on: 1 05:01 PM EDT
--- OUTSIDE RECORDS SUMMARY | 2025-03-29 05:15 | XMS_ITS ---
Author Organization [facility] Address [address] [facility] [address] [place] [address] Care Team Providers Care Senior Application Security Consultant Name Role Phone Heladio Palm Primary Care Provider REASON FOR VISIT [facility] D/C 03/21/2025 Encounters Encounter Location Date Provider Diagnosis [facility] [address] [facility] [address] [place] [address] 03/29/2025 Heladio Palm Plan Of Treatment No Information Progress Notes * DAISYKaroOB:[birth year] (75 yo F)Acc No.[id number]:03/29/2025 HOSP F/U Patient: Juwan RUST Mirtha Provider: Haritha Palm MD :1950 A ge:75 Y S ex:Female Date:03/29/2025 Address:[address] [place] [id number] Subjective: * Chief Complaints: * 1 . [facility] D/C 03/21/2025. * 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: Objective: * Vitals: Assessment: Plan: * Treatment: * * Electronic signature of Jeffy Palm MD FAAP on 06/28/2025 at 05:04 PM EDT Sign off status: Pending * Provider: Haritha Palm MD Date: 0 03/29/2025 Generated for Printi ng/Fadyllang/eTransmitting on: 1 05:04 PM EDT
--- OUTSIDE RECORDS SUMMARY | 2025-05-11 05:30 | XMS_ITS ---
Author Organization [facility] Address [address] [place] [address] Care Team Providers Care Housecleaner Floor Name Role Phone Heladio Palm Primary Care Provider REASON FOR VISIT med ck Encounters Encounter Location Date Provider Diagnosis [address] [address] 05/11/2025 Heladio Palm Plan Of Treatment No Information Progress Notes * Karo VILLAOB:[birth year] (75 yo F)Acc No.[id number]:05/11/2025 Progress Notes Patient: Mirtha LOMAX Provider: Haritha Palm MD :1950 A ge:75 Y S ex:Female Date:05/11/2025 Address:[address] [place], [place] [id number] Subjective: * Chief Complaints: * 1 . Med ck. * 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: Objective: * Vitals: Assessment: Plan: * Treatment: * * Electronic signature of Jeffy Palm MD FAAP on 06/28/2025 at 05:04 PM EDT Sign off status: Pending * Provider: Haritha Palm MD Date: 0 05/11/2025 Generated for Printi ng/Faxing/eTransmitting on: 1 05:04 PM EDT
--- OUTSIDE RECORDS SUMMARY | 2025-05-25 05:30 | XMS_ITS ---
Author Organization [facility] Address [address] [facility] [address] [place] [address] Care Team Providers Care Refrigeration Repair Supervisor Name Role Phone Heladio Palm Primary Care Provider [phone] Allergies Allergen (clinical drug ingredient) Drug/Non Drug [...] Value Reference Range Notes BASIC METABOLIC PANEL (24103 ) Reviewed date:05/26/2025 09:39:45 AM Interpretation: Performing Lab:[facility], [facility] [address], [facility] Brady Brown Notes/Report: NON-FASTING; NON-FASTING; NON-FASTING GLUCOSE [...] Reviewed date:05/26/2025 09:39:45 AM Interpretation: Performing Lab:[facility], [facility] [address], [id number] Brady Brown Notes/Report: NON-FASTING; NON-FASTING; NON-FASTING MAGNESIUM 1.6 1.5-2.5 mg/dL HEMOGLOBIN A1c (496) Reviewed date:05/26/2025 09:39:46 AM Interpretation: Performing Lab:[facility], [facility] [address], [id number] Brady Brown Notes/Report: NON-FASTING; NON-FASTING; NON-FASTING HEMOGLOBIN [...] Status W/U Status Risk Notes Problem Hypomagnesemia (229623782) Hypomagnesemia (E83.42) Active confirmed Vital Signs Temperature 98 degrees Fahrenheit 05/25/2025 Heart Rate 72 /min 05/25/2025 Blood pressure systolic 126 mm Hg 05/25/20 25 Blood pressure diastolic 62 mm Hg 025 Height 5 ft 3 in in 05/25/2025 Weight 234 lbs 05/25/2025 BMI 41.45 kg/m2 05/25/2025 Encounters Encounter Location Date Provider Diagnosis [address] [address] 05/25/2025 Heladio Palm Type 2 diabetes mellitus [...] to keep and attend her appointment with Technical Clerk on Jun 06. 05/25/2025 Osteoporosis screening (ICD-10 [...] to keep and attend her appointment with Technical Clerk on Jun 06. Osteoporosis screening Pt will [...] Next Appt Details Follow Up: prn, Reason: Progress Notes * Karo VELAZQUEZOB:[birth year] (75 yo F)Acc No.[id number]:05/25/2025 Progress Notes Patient: Mirtha LOMAX Provider: Haritha Palm MD :1950 A ge:75 Y S ex:Female Date:05/25/2025 Address:[address] [place], [place] [id number] Subjective: * Chief Complaints: * 1 . Med ck. 2. Labs - is fasting. 3. Flu shot. * HPI: g en: Gen [age]yo female comes in for medication check. Pt explains she was recently hospitalized due to cardiac complications. Pt explained she was at home and had an episode of a-fib. Pt went to [facility] ER and was moving between a-fib and [...] dosing was reduced to 180mg by her bridal consultant a week later due to difficulty with [...] pain/burning/difficulty with urination. Pt will see her Technical Clerk on Jun 06 for evaluation. 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 * Family History: [...] iblings: alive, HTN. C joel: alive, son- CT- CAD. 1 sister(s) - healthy. 3 son(s) [...] kidney disease, stage 3b?LAB: BASIC METABOLIC PANEL (54545)* Value Reference Range G LUCOSE 177 H [...] to keep and attend her appointment with Technical Clerk on Jun 06. ??3.?Osteoporosis screening?Imaging: DEXA VERTEBRAL FX ASSESS* Notes: Pt will be contacted by scheduling personal to set up an appointment for her DEXA scan. Pt was encouraged to continue taking her medications as prescribed. ??4.?Immunization(s) administered? Notes: Flu shot was administered and tolerated well. ??5.?Hypomagnesemia?LAB: BASIC METABOLIC PANEL (18418)* Value Reference Range G LUCOSE 177 H [...] * This lab was reviewed by Dhruv Plam on 05/26/2025 at 09:39 AM EDT ?LAB: [...] Palm MD Date: 0 05/25/2025 Generated for Ramirezi ng/Tila/eTransmitting on: 1 05:04 PM EDT History and Physical Notes * HPI (History of Present Illness) Category Sub-Category Detail Notes Category Not es gen Gen 75yo female come s in for medication check. Pt explains she was recently hospitalized due to cardiac complications. Pt explained she was at home and had an episode of a-fib. Pt went to [facility] ER and was moving between a-fib and [...] dosing was reduced to 180mg by her bridal consultant a week later due to difficulty with [...] pain/burning/difficulty with urination. Pt will see her Technical Clerk on Jun 06 for evaluation. At last [...]
--- OUTSIDE RECORDS SUMMARY | 2025-05-30 08:00 | XMS_ITS | Encounter Summary ---
Author Organization [facility] Address [address] [id number] Care Team Providers Care Drafting Supervisor Name Role Phone Heladio Palm MD Primary Care Provider + [phone] Reason for Visit * Auth/Cert (Routine) Specialty Diagnoses / Procedures Referred By Contac t Referred To Contact Diagnoses Paroxysmal atrial fibrillation (CMS/HCC) Paroxysmal atrial fibrillation (CMS/HCC) [I48.0] Procedures ND PERQ CLSR TCAT L ATR APNDGE W/ENDOCARDIAL IMPLNT Left atrial appendage closure (transvenous) Bryan Allen MD [address] [place] [address] Phone: tel: fax: Cardiac [employer] [address] [place] [address] Phone: tel: Referral ID Status Reason Start Date Expiration Date Visits Re quested Visits Authorized [id number] 1 1 Encounter Details Date Type Department Care Team (Latest Contact Info) Description 05/30/2025 8:00 AM EDT - 05/30/2025 4:43 PM EDT Hospital Encounter Cardiac [facility] [address] [place] [address] Bryan Allen MD [address] [place] [address] Paroxysmal atrial fibrillation (CMS/HCC) Discharge [...] following information is obtained directly from the [employer]. https://www.heart.org/en/health-topics/infective-endocarditis What is Infective Endocarditis? [...] 80 MG tabletIndications :Coronary artery disease involving muscogee coronary artery of muscogee heart without angina pectoris TAKE 1 TABLET [...] from the original note were not included. [id number] Bleeding or Hematoma After Cardiac Catheterization You [...] on the site, and call 911 [facility]. In [...] provider. Last Reviewed Date: 2024 00:00:00 ?? [phone] [employer]. All rights reserved. This information is not intended as a substitute for professional medical care. Always follow your healthcare professional's instructions. * fAtab Hernandez - Zack Reyna RN - 05/30/2025 [...] It does take the place of a mcfp blood thinner to prevent a stroke. What [...] headache ? Any return of bleeding * Discharge Summary - Vitaliy Sykes PA - 05/30/2025 3:40 PM EDT Hospitalization Admit Date/Time: 05/30/2025 8:00 AM Admitting Attending: Bryan Allen Discharge Date: 05/30/25 Discharge Attending Physician: Bryan Allen MD PCP name and Address: Heladio Palm MD [address] [facility] / [place] [address] Referring provider name and address: No referring provider defined for this encounter. Chief Concern, Brief History of Present Illness, and Hospital Course Mirtha Barrios is a 75 year old [...] Clinical Registry/CMS Research as required by the [facility] NCT#[id number] Cardiac Diagnostics: Echo - 04/2025 at OSH: Normal biventricular systolic function, mild RV dilation, mild biatrial dilation,mild TR - 05/30/2025: Cardiac Procedures: Watchman - 05/30/2025: Successful percutaneous left atrial appendage occlusion with a 24 mm Watchman FLX Pro device. Dr. Bryan Allen, [facility]. # Paroxysmal Atrial Fibrillation and Flutter - CHADSVASC score 6 (age, sex, HTN, CAD, DM). - Intolerant to DOAC due to renal hemorrhage and RP bleed while on Xarelto - Recent admission 04/2025 with AF and AFL with RVR. - Home medication: Plavix 75 mg PO daily. Plan: - Now s/p Watchman with Dr. Allen on 05/30. - Post-op echo: No pericardial effusion - Medication plan: -- ASA 81 mg PO daily. -- Plavix 75 mg PO daily. - Follow up in [address] scan to evaluate device. Surgeries and Procedures Procedures performed in this encounter Procedures Structural Heart Left atrial appendage closure (transvenous) (N/A) Interpretation Successful percutaneous left atrial appendage occlusion with a 24 mm Watchman FLX Pro device 1) Bed rest for 4 hours. Patient can be discharged thereafter if 1) echocardiogram shows no major abnormality, 2) the patient can ambulate, and 3) there is adequate vascular hemostasis. 2)Echocardiogram in 4 hours to assess for effusion 3) Aspirin 81 mg daily indefinitely. Plavix 300 mg prior to discharge if echocardiogram shows no major abnormality. Plavix 75 daily for 6 months. 4) Antibiotics prior to dental procedures for 6 months. 5) Follow-up in [address] scan to look for device leak and device-related thrombus. Medication List .. aspirin 81 MG EC tablet Take 1 tablet by mouth daily. atorvastatin 80 MG tablet Commonly known as: Lipitor TAKE 1 TABLET BY MOUTH 1 TIME EACH DAY. biotin 1000 MCG tablet 1 (one) time each day at the same time. carvedilol 25 MG tablet Commonly known as: Coreg TAKE 1 TABLET BY MOUTH TWICE A DAY FOR 30 DAYS cholecalciferol 25 MCG (1000 UT) tablet Commonly known as: Vitamin D3 Take 1 tablet by mouth daily. clopidogrel 75 MG tablet Commonly known as: Plavix Take 1 tablet by mouth daily. dilTIAZem CD 240 MG 24 hr capsule Commonly known as: Cardizem CD Take 1 capsule by mouth nightly. Farxiga 10 MG tablet Generic drug: dapagliflozin Take 1 tablet by mouth daily. fexofenadine 180 MG tablet Commonly known as: Manju Take 1 tablet by mouth daily. furosemide 40 MG tablet Commonly known as: Lasix Take 1 tablet by mouth daily. levothyroxine 100 MCG tablet Commonly known as: Synthroid, Levoxyl Take 1 tablet by mouth daily. magnesium oxide 400 (240 Mg) MG tablet Commonly known as: Mag-Ox Take 1 tablet by mouth daily. Tylenol 8 Hour 650 MG ER tablet Generic drug: acetaminophen Take 1 tablet by mouth every 8 hours as needed for mild pain. Do not crush, chew, or split. venlafaxine 100 MG tablet Commonly known as: Effexor Take 1 tablet by mouth daily. Where to Get Your Medications Information about where to get these medications is not yet available Ask your nurse or doctor about these medications aspirin 81 MG EC tablet Discharge Diagnosis Medical Problems Active and Resolved Hospital Problems Hospital Paroxysmal atrial fibrillation ([facility]) * (Principal) Atrial fibrillation ([facility]) Discharge Instructions/Restrictions: Activity & Incision Instructions: For [...] following information is obtained directly from the [employer]. https://www.heart.org/en/health-topics/infective-endocarditis What is Infective Endocarditis? [...] for antibiotic prophylaxis for a dental procedure. Outpatient Follow-Up Future Appointments Date Time Provider Department Center 06/05/2025 4:00 PM (RADHA), [facility] 08/14/2025 1:30 PM CHAIR [address] [facility] 01/26/2026 11:00 AM uLis Olivares MD [facility] Results Pending At Discharge Pertinent Physical Exam At Time of Discharge Physical Exam Vitals reviewed. Constitutional: General: She is not in acute distress. Appearance: She is obese. She is not ill-appearing, toxic-appearing or diaphoretic. HENT: Head: Normocephalic. Eyes: Extraocular Movements: Extraocular movements intact. Cardiovascular: Rate and Rhythm: Normal rate. Pulmonary: Effort: Pulmonary effort is normal. Breath sounds: Normal breath sounds. Musculoskeletal: General: Normal range of motion. Cervical back: Normal range of motion. Skin: General: Skin is warm. Capillary Refill: Capillary refill takes less than 2 seconds. Comments: R groin access site clean without bruising, hematoma, tenderness or oozing Neurological: General: No focal deficit present. Mental Status: She is alert. Psychiatric: Mood and Affect: Mood normal. Discharge Disposition/Condition Disposition: Home Condition: Stable (s/sx potential problems absent or manageable) I spent >30 minutes of patient care and instruction time in preparation for this discharge. Cosigned by Bryan Allen MD at 06/02/2025 5:26 PM EDT Associated attestation - Bryan Allen MD - 06/02/2025 5:26 PM EDT The patient was seen only by Advanced Practice Provider (VANIA). * H&P - Vitaliy Sykes PA - [...] with h/o RP bleed while on Xarelto. [facility] has not been onanticoagulation since that time [...] will be extracted and entered into the [facility] Clinical Registry/CMS Research as required by the [facility] NCT#[id number] She did take Plavix this a.m. and is NPO for the procedure. She denies recent illness or overt signs of GI bleeding. Past 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 Past 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[1] Surgical History Surgical History[2] Family History Reviewed and non-contributory. Social History Tobacco use: denies Alcohol use: Denies any significant recent usage. Other: Denies illicit drug use. Allergies: Allergies[3] Home Medications: reconciled in [facility] Medications: Current Scheduled Medications[4] Current Continuous [...] MD, Cardiology Attending Vitaliy Sykes PA-C [phone] [1] Past 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: Diagnosis Date Allergic purpura (CMS/HCC) Henoch-Schonlein purpura Allergic rhinitis Allergy to metal 1966 Anemia Arrhythmia 1975 Asthma Childhood 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 Mukherjee's esophagus Bronchiectasis Childhood Cataract CHF (congestive heart failure) (CMS/HCC) COPD (chronic obstructive pulmonary disease) (CMS/HCC) 2009 Coronary artery disease 2009 Diabetes mellitus (CMS/HCC) 2015 Diabetic nephropathy ([facility]/HCC) GERD (gastroesophageal reflux disease) 1989 History of [...] Date BLADDER SURGERY N/A Bladder Surgery from Second Funnel CARDIAC CATHETERIZATION June 2022 CATARACT EXTRACTION N/A Cataract Extraction from Second Funnel CHOLECYSTECTOMY N/A 2013 Cholecystectomy from Second Funnel HYSTERECTOMY N/A 1987 Hysterectomy from Second Funnel INTRAOCULAR LENS INSERTION KIDNEY SURGERY bleeding from kidney, fixed in IR OTHER SURGICAL HISTORY N/A Biopsy Skin from Second Funnel TOTAL ABDOMINAL HYSTERECTOMY N/A Total Abdominal Hysterectomy from Second Funnel [3] Allergies Allergen Reactions Codeine Anaphylaxis, Nausea, [...] AND sodium chloride AND sodium chloride * Pre-Sedation Procedural Documentation - Mylene Cohn MD - 05/30/2025 8:35 AM EDT Images from the original note were not included. CARDIOLOGY PRE-PROCEDURAL ASSESSMENT AND SEDATION PLAN Indication for procedure: The encounter diagnosis was Paroxysmal atrial fibrillation (CMS/HCC). Planned Procedure: JOSE +/- cardioversion Relevant past medical history: Afib Previous problems with sedation or surgery: No Previous family history or problems with sedation or surgery: No Relevant review of systems: NA Relevant Labs: Lab Results Component Value Date CREATININE 1.57 (H) 02/08/2024 EGFR 34.3 02/08/2024 INR 1.2 (H) 11/23/2019 Planned Sedation/Anesthesia: Moderate Airway assessment: normal Mallampati Score: II (hard and soft palate, upper portion of tonsils anduvula visible) ASA: ASA 2 - Patient with mild systemic disease with no functional limitations Directed physical examination: There were no vitals filed for this visit. GENERAL: Awake, alert, NAD HEENT: NCAT NECK: No appreciable JVD CARDIAC: Regular rate, regular rhythm, normal S1/S2, no m/r/g, 2+ radial pulses bilaterally PULM: CTAB without increased work of breathing EXT: Warm and well perfused, no LE edema SKIN: No rashes or lesions NEURO: A&Ox4, moving all extremities spontaneously Benefits, risks and alternatives of procedure and planned sedation have been discussed with the patient and/or their retail field representative. All questions answered and they agree to proceed. Mylene Cohn PGY-6 Thumb Sewer Cosigned by Bryan Allen MD at 06/02/2025 5:27 PM EDT Associated attestation - Bryan Allen MD - 06/02/2025 5:27 PM EDT Quinn Allen MD * Hospital Course - Alan Polloalvaro Pressley APRN - 05/25/2025 1:28 PM EDT Mirtha [...] Clinical Registry/CMS Research as required by the [facility] NCT#[id number] Cardiac Diagnostics: Echo - 04/2025 at OSH: Normal biventricular systolic function, mild RV dilation, mild biatrial dilation,mild TR - 05/30/2025: Cardiac Procedures: Watchman - 05/30/2025: Successful percutaneous left atrial appendage occlusion with a 24 mm Watchman FLX Pro device. Dr. Bryan Allen, [facility]. # Paroxysmal Atrial Fibrillation and Flutter [...] Care Team (Late st Contact Info) Description 07/19/2025 1:20 PM EST Appointment [facility] [address] [place] [phone] 07/26/2025 4:00 PM EST Office Visit [facility] [place] [address], [address] [place] [address] Svetlana Olguin PA [address] [place] [address] 08/14/2025 1:30 PM EST Office Visit [facility] [address] [place] [phone] 10/03/2025 2:40 PM EST Office Visit [facility] [address], [address] [place] [address] Alejandra Camacho MD [address] [place] [address] 01/26/2026 11:00 AM EDT Office Visit [facility] [address] [place] [address] Luis Olivares MD [address] [place] [address] documented as of this encounter Procedures Procedure Name Priority Date/Time Associated Diagnosis Comments ECHO, ADULT TRANSESOPHAGEAL INTRAPROCEDURAL W/ 3D Routine 05/30/2025 4:17 PM EDT ECHO, ADULT TRANSTHORACIC LIMITED Routine 05/30/2025 3:25 PM EDT LEFT ATRIAL APPENDAGE CLOSURE (TRANSVENOUS) Routine 05/30/2025 11:49 AM EDT Paroxysmal atrial fibrillation (CMS/HCC) POCT ACT UNSOLICITED RESULTS Routine 05/30/2025 11:25 AM EDT POCT CREATININE ISTAT UNSOLICITED RESULTS Routine 05/30/2025 9:01 AM EDT CBC W/O DIFFERENTIAL STAT 05/30/2025 8:57 AM EDT MAGNESIUM, PLASMA STAT 05/30/2025 8:5 7 AM EDT BASIC METABOLIC PANEL, PLASMA STAT 05/30/2025 8:57 AM EDT documented in this encounter Results * ECHO, ADULT TRANSESOPHAGEAL INTRAPROCEDURAL W/ 3D (05/30/2025 4:17 PM EDT) BSA 2.13 m2 CASSIDY ISCV Height 155 [...] captured. The probe was inserted by the carbonation tester. There was no probe insertion difficulty. Moderate [...] is no recent study available for direct [id number] comparison. Bryan Allen MD CV ECHO PROCEDURES Final R esult * ECHO, ADULT TRANSTHORACIC LIMITED (05/30/2025 3:25 PM EDT) BSA 2.02 m2 CASSIDY ISCV Height 154.9 [...] cm. Weight: 105.7 kg. BSA: 2.02 m2. us Vitaliy GORDON CV ECHO PROCEDURES Final Res [...] Procedure Details Background Information: The patient is [id number] woman with atrial fibrillation, hypertension, diabetes mellitus, [...] was obtained: 1) Right common femoral vein: 8-Dominican short Terumo sheath (preclose deployed) Antibiotics were given. Heparin for ACT>250 was given. The 8-Dominican sheath was exchanged for an 8.5-Dominican, 63 cm, 45-degree curve VersaCross sheath. The [...] removed over the pigtail wire. The Watchman 14-Dominican double curve sheath was then advanced over the wire into the left atrium. A 6-Dominican Pigtail catheter was advanced through the sheath [...] Phase: Resting Left LA Mean: 19 mmHg Svetlana GORDON CV CARDIAC CATH PROCEDU RES Final Result * POCT ACT (05/30/2025 11:25 AM EDT) ACT (Low Range) 287 65 - 400 seconds 06/23/2025 2:08 PM EDT HEALTHCARE [facility] ID Josephine Mathew 06/23/2025 2:08 PM EDT [facility] ACT Device ID [id number] 06/23/2025 2:08 PM EDT HEALTHCARE LAB Comment 06/23/2025 2:08 PM EDT [facility] Comment: ACT performed by staff at point of care. Results are reported immediately to the physician or primary caregiver. The activated clotting time is performed on patients with diverse clinical characteristics and treatment histories. Therefore, expected values are variable and results must be interpreted in the context of each individual patient. Whole Blood Venous blood specimen / Unknown 05/30/2025 11:25 AM EDT 06/23/2025 2:08 PM EDT Bryan Allen MD LAB POINT OF CARE TEST DOCKED DEVICE UNSOLICITED RESULTS Final Result [facility] [address] LAB [address] [place] [address] * (ABNORMAL) POCT creatinine (05/30/2025 9:01 AM EDT) [facility] Creatinine, Point of Care 1.3(H) 0.6 - 1.1 mg/dL 05/30/2025 9:05 AM EDT HEALTHCARE LAB POCT eGFR 43 mL/min/1. 73m*2 05/30/2025 9:05 AM EDT HEALTHCARE LAB [facility] Chey Joel 05/30/2025 9:05 AM EDT HEALTHCARE LAB Device ID [id number] 05/30/2025 9:[address] [facility] Comment 05/30/2025 9:05 AM EDT [facility] Comment:Testing performed on i-STAT at the point of care. Reported eGFRcr in mL/min/1.73m2 is based the CKD-EPI 2020 equation that does not use a race coefficient. Blood Venous blood specimen / Unknown 05/30/2025 9:01 AM EDT 05/30/2025 9:05 AM EDT us Bryan Allen MD LAB POINT OF CARE TEST DOCKED DEVICE UNSOLICITED RESULTS Final Result Performing Organization Address [facility] Co de Phone Number [facility] [address] LAB [address] [place] [address] * (ABNORMAL) Magnesium (05/30/2025 8:57 AM EDT) [facility] Magnesium, Plasma 1.8(L) 1.9 - 2.4 mg/dL 05/30/2025 9:37 AM EDT [facility] Blood Venous blood specimen / Unknown Venipuncture / Unknown 05/30/2025 8:57 AM EDT 05/30/2025 9:09 AM EDT us Jignesh GORDON LAB BLOOD ORDERABLES Final R esult [facility] [address] [place] [address] * (ABNORMAL) Basic metabolic panel (05/30/2025 8:57 AM EDT) Glucose, Plasma 271(H) 74 - 99 mg/dL 05/30/2025 9:37 AM EDT [facility] BUN, Plasma 27(H) 8 - 23 mg/dL 05/30/2025 9:37 AM EDT [facility] Creatinine, Plasma 1.10 0.60 - 1.10 mg/dL 05/30/2025 9:37 AM EDT [facility] BUN/Creatinine Ratio 25 05/30/2025 9:37 AM EDT [facility] Sodium, Plasma 138 136 - 145 mmol/L 05/30/2025 9:37 AM EDT [facility] Potassium, Plasma 4.7 3.6 - 4.9 mmol/L 05/30/2025 9:37 AM EDT [facility] Comment:Hemolyzed, result ma y be falsely increased. Chloride, Plasma 102 97 - 107 mmol/L 05/30/2025 9:37 AM EDT [facility] CO2, Plasma 22 22 - 29 mmol/L 05/30/2025 9:37 AM EDT [facility] Anion Gap 14 6 - 16 mmol/L 05/30/2025 9:37 AM EDT [facility] Total Calcium, Plasma 9.8 8.9 - 10.2 mg/dL 05/30/2025 9:37 AM EDT [facility] eGFRcr 52.2 mL/min/1.7 3m*2 05/30/2025 9:37 AM EDT [facility] Comment:Reported eGFRcr in m L/min/1.73m2 is based the CKD-EPI 2020 equation that does not use a race coefficient. Blood Venous blood specimen / Unknown Venipuncture / Unknown 05/30/2025 8:57 AM EDT 05/30/2025 9:09 AM EDT us Jignesh GORDON LAB BLOOD ORDERABLES Final R esult [facility] [address] [place] [address] * Hemogram (CBC) (05/30/2025 8:57 AM EDT) WBC Count 8.97 3.70 - 10.30 10*3/uL LAB HEMATOLOGY METHOD 05/30/2025 9:19 AM EDT [facility] RBC Count 4.72 3.90 - 5.20 10*6/uL LAB HEMATOLOGY METHOD 05/30/2025 9:19 AM EDT [facility] HGB 14.4 11.2 - 15.7 g/dL LAB HEMATOLOGY METHOD 05/30/2025 9:19 AM EDT [facility] HCT 43.8 34.0 - 45.0 % LAB HEMATOLOGY METHOD 05/30/2025 9:19 AM EDT [facility] Platelet Count 249 155 - 369 10*3/uL LAB HEMATOLOGY METHOD 05/30/2025 9:19 AM EDT [facility] MCV 93 79 - 98 fL LAB HEMATOLOGY METHOD 05/30/2025 9:19 AM EDT [facility] MCH 30.5 26.0 - 32.0 pg LAB HEMATOLOGY METHOD 05/30/2025 9:19 AM EDT [facility] MCHC 32.9 30.7 - 35.5 g/dL LAB HEMATOLOGY METHOD 05/30/2025 9:19 AM EDT [facility] RDW 13.0 11.5 - 14.5 % LAB HEMATOLOGY METHOD 05/30/2025 9:19 AM EDT [facility] MPV 9.8 8.8 - 12.5 fL LAB HEMATOLOGY METHOD 05/30/2025 9:19 AM EDT [facility] nRBC 0.0 <=0.0 per 100 WBCs LAB HEMATOLOGY METHOD 05/30/2025 9:19 AM EDT [facility] Blood Venous blood specimen / Unknown Venipuncture / Unknown 05/30/2025 8:57 AM EDT 05/30/2025 9:11 AM EDT us Jignesh GORDON LAB BLOOD ORDERABLES Final R esult [facility] [address] [place], [place] [id number] documented in this encounter Visit Diagnoses Diagnosis [...] needed, Starting on Thu05/30/25 at 0856, Until 05/30/25 at 1843, Routine, Holding - Preprocedure, line [...] Oral, Every 4 hours PRN, Starting on e 05/30/25 at 1215, Until 05/30/25 at 1843, Routine, Recovery(Phase II-Outpatient)/On Unit(Inpatient), mild pain, fever 1236 (Given - Provid er: Zack Reyna RN) fentaNYL (Sublimaze) injection (CANCELED) As needed, Starting on Thu05/30/25 at 1043, Until Thu05/30/25 at 1157, Routine, Intraprocedure 1043 (Given - Provid er: Josephine Mathew RN)1045 (Given - Provider: Josephine Mathew RN)1059 (Given - Provider: Josephine Mathew RN)1112 (Given - Provider: Josephine Mathew RN)1118 (Given - Provider: Josephine Mathew RN) heparin (porcine) injection (CANCELED) As needed, Starting on Thu05/30/25 at 1115, Until Thu05/30/25 at 1157, Routine, Intraprocedure 1115 (Given - Provid er: Bryan Allen MD - Comment: via femoral sheath)1130 (Given - Provider: Josephine Mathew RN) iodixanol (VISIPaque) 320 MG/ML injection (CANCELED) [...] Time MRSA Comment:Added from external infection. Source: [facility]. 09/07/2019 Assessment Noted Time PHQ-9 Depression Total Score: 0 04/24/20 1:50 PM EDT A fall risk assessment has been complete d for the patient 04/24/2025 1:50 PM EDT A Body Mass Index follow-up plan has been documented for the patient 05/30/2025 3:57 PM EDT documented as of this encounter Care Teams Drafting Supervisor Relationship Specialty Start Date End Date Heladio Palm MD [address] [place] [id number] PCP - General Internal Medicine 05/02/22 documented as of this encounter
--- OUTSIDE RECORDS SUMMARY | 2025-05-30 09:15 | XMS_ITS | Encounter Summary ---
Author Organization [facility] Address [address] [id number] Care Team Providers Care Career Education Teacher Name Role Phone Heladio Palm MD Primary Care Provider + [phone] Reason for Visit * Auth/Cert (Routine) Specialty Diagnoses / Procedures Referred By Contac t Referred To Contact Diagnoses Paroxysmal atrial fibrillation (CMS/HCC) Paroxysmal atrial fibrillation (CMS/HCC) [I48.0] Procedures ME PERQ CLSR TCAT L ATR APNDGE W/ENDOCARDIAL IMPLNT Left atrial appendage closure (transvenous) Bryan Allen MD [address] [place] [address] Phone: tel: fax: Cardiac Utilization Review Rn [address] [place] [address] Phone: tel: Referral ID Status Reason Start Date Expiration Date Visits Re quested Visits Authorized [id number] 1 1 Encounter Details Date Type Department Care Team (Late st Contact Info) Description 05/30/2025 9:15 AM EDT - 05/30/2025 10:55 AM EDT Surgery Cardiac Utilization Review Rn [address] [place] [address] Bryan Allen MD [address] [place] [address] Left atrial appendage closure (transvenous) [84696 (CPT )] Surgery Details Date/Time Status Location OR Service Patient Class Case Class Case Type Trauma Case? 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 Not at all 04/24/2025 1:50 PM THELMAT Nola Sher Thoughts that you would be [...] No 05/30/2025 8:38 AM EDT Zack Reyna , RN 6. Suicidal Behavior (Lifetime) No 8:38 AM EDT Zack Reyna RN documented as of this encounter Discharge Instructions * Discharge Instructions* Pollo Phillips, SOFTWOOD FALLER - 05/30/2025 12:27 PM EDT Discharge Instructions/Restrictions: [...] following information is obtained directly from the [place] [employer]. https://www.heart.org/en/health-topics/infective-endocarditis What is Infective Endocarditis? [...] 80 MG tabletIndications :Coronary artery disease involving zuni coronary artery of zuni heart without angina pectoris TAKE 1 TABLET [...] to be driven home by son. * [facility] - Zack Reyna RN - 05/30/2025 3:57 PM EDT Images from the original note were not included. [id number] Bleeding or Hematoma After Cardiac Catheterization You [...] on the site, and call 911 or havemeone take you to the emergency room. In [...] provider. Last Reviewed Date: 2024 00:00:00 ?? [id number] The [employer]. All rights reserved. This information is not [...] It does take the place of a intermediate accountant blood thinner to prevent a stroke. What [...] Heladio Palm MD [address] [facility] [place] [address] Referring provider name and address: No referring [...] Clinical Registry/CMS Research as required by the [facility].? NCT#[id number] Cardiac Diagnostics: Echo - 04/2025 at OSH: Normal biventricular systolic function, mild RV dilation, mild biatrial dilation,mild TR - 05/30/2025: Cardiac Procedures: Watchman - 05/30/2025: Successful percutaneous left atrial appendage occlusion with a 24 mm Watchman FLX Pro device. Dr. Bryan Allen, [facility]. # Paroxysmal Atrial Fibrillation and [...] Resolved Hospital Problems Hospital Paroxysmal atrial fibrillation ([facility]) * (Principal) Atrial fibrillation ([facility]) Discharge Instructions/Restrictions: Activity & Incision Instructions: For [...] following information is obtained directly from the [place] [employer]. https://www.heart.org/en/health-topics/infective-endocarditis What is Infective Endocarditis? [...] Time Provider Department Center 06/05/2025 4:00 PM (AYLEEN SHAFFER [facility] 08/14/2025 1:30 PM CHAIR 11 [facility] 01/26/2026 11:00 AM Luis Olivares MD [facility] Test Results Pending At Discharge Pertinent Physical [...] will be extracted and entered into the [facility] Clinical Registry/[facility] Research as required by the [facility].? NCT#[id number] She did take Plavix this a.m. and [...] MD, Cardiology Attending Vitaliy Sykes PA-C [phone] [1] Past 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: Diagnosis Date Allergic purpura ([facility]) Henoch-Schonlein purpura Allergic rhinitis Allergy to metal 1966 Anemia Arrhythmia 1975 Asthma Childhood 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 Mukherjee's esophagus Bronchiectasis Childhood Cataract CHF (congestive heart failure) (CMS/HCC) COPD (chronic obstructive pulmonary disease) (CMS/HCC) 2010 Coronary artery disease 2010 Diabetes mellitus (CMS/HCC) 2016 Diabetic nephropathy ([facility]) GERD (gastroesophageal reflux disease) 1989 History of [...] Date BLADDER SURGERY N/A Bladder Surgery from [facility] CARDIAC CATHETERIZATION June 2022 CATARACT EXTRACTION N/A Cataract Extraction from [facility] CHOLECYSTECTOMY N/A 2013 Cholecystectomy from [facility] HYSTERECTOMY N/A 1987 Hysterectomy from [facility] INTRAOCULAR LENS INSERTION KIDNEY SURGERY bleeding from kidney, fixed in IR OTHER SURGICAL HISTORY N/A Biopsy Skin from [facility] TOTAL ABDOMINAL HYSTERECTOMY N/A Total Abdominal Hysterectomy from [facility] [3] Allergies Allergen Reactions Codeine Anaphylaxis, Nausea, [...] been discussed with the patient and/or their contracts representative. All questions answered and they agree to proceed. Mylene Cohn PGY-6 Heat Plant Specialist Cosigned by Bryan Allen MD at 06/02/2025 5:27 PM EDT Associated attestation - Bryan Allen MD - 06/02/2025 5:27 PM EDT Quinn Allen MD * Hospital Course - Pollo Phillips APRN - 05/25/2025 1:28 PM EDT Mirtha Barrios is a 75 year old female who is now s/p Watchman implant with Dr. Allen on 05/30/2025. 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 Patient meets criteria for Watchman Left Atrial Occluder closure device according to the CMS National Coverage Decision.? Case data will be extracted and entered into the NCDR Clinical Registry/CMS Research as required by the [facility].? NCT#[id number] Cardiac Diagnostics: Echo - 04/2025 at OSH: Normal biventricular systolic function, mild RV dilation, mild biatrial dilation,mild TR - 05/30/2025: Cardiac Procedures: Watchman - 05/30/2025: Successful percutaneous left atrial appendage occlusion with a 24 mm Watchman FLX Pro device. Dr. Bryan Allen, [facility]. # Paroxysmal Atrial Fibrillation and [...] Info) Description 07/19/2025 1:20 PM EST Appointment [facility] [address] [place] [address] 07/26/2025 4:00 PM EST Office Visit [facility] [place] [address] [facility], [address] [place] [address] Svetlana Olguin PA [address] [place] [address] 08/14/2025 1:30 PM EST Office Visit [facility] [address] [place] [address] 10/03/2025 2:40 PM EST Office Visit [facility] Nephrology, Bone & Mineral Metabolism [address], [address] [place] [address] Alejandra Camacho MD [address] [place] [address] 01/26/2026 11:00 AM EDT Office Visit [facility] Eye Care [address] [place] [address] Luis Olivares MD [address] [facility] [address] [place] [address] documented as of this encounter [...] captured. The probe was inserted by the environmental remediation engineer. There was no probe insertion difficulty. Moderate [...] is no recent study available for direct [id number] comparison. us Bryan Allen MD CV ECHO PROCEDURES Final R esult * ECHO, ADULT TRANSTHORACIC LIMITED (05/30/2025 3:25 PM EDT) BSA 2.02 m2 CASSIDY ISCV Height 154.9 CASSIDY ISCV Weight 105.7 CASSIDY [employer] Anatomical Region Laterality Modality Echocardiography Narrative 05/30/2025 [...] Procedure Details Background Information: The patient is [id number] woman with atrial fibrillation, hypertension, diabetes mellitus, [...] was obtained: 1) Right common femoral vein: 8-Belarusian short Terumo sheath (preclose deployed) Antibiotics were given. Heparin for ACT>250 was given. The 8-Belarusian sheath was exchanged for an 8.5-Belarusian, 63 cm, 45-degree curve VersaCross sheath. The [...] removed over the pigtail wire. The Watchman 14-Belarusian double curve sheath was then advanced over the wire into the left atrium. A 6-Belarusian Pigtail catheter was advanced through the sheath [...] seconds 06/23/2025 2:08 PM EDT [facility] Drill Hand ID Josephine Mathew 06/23/2025 2:08 PM EDT [facility] ACT Device ID [id number] 06/23/2025 2:08 PM EDT [facility] Comment 06/23/2025 2:[address] [facility] Comment: ACT performed by staff [...] UNSOLICITED RESULTS Final Result Performing Organization Address City/[facility] Co de Phone Number HEALTHCARE LAB [address] LAB [address] [place] [address] * (ABNORMAL) POCT creatinine (05/30/2025 9:01 AM EDT) [facility] Creatinine, Point of Care 1.3(H) 0.6 - 1.1 mg/dL 05/30/2025 9:05 AM EDT [facility] POCT eGFR 43 mL/min/1. 73m*2 05/30/2025 9:05 AM EDT [facility] Drill Hand ID Chey Joel 05/30/2025 9:05 AM EDT [facility] Device ID [id number] 05/30/2025 9:05 AM EDT [facility] Comment 05/30/2025 9:[address] [facility] Comment:Testing performed on i-STAT at the point of care. Reported eGFRcr in mL/min/1.73m2 is based the CKD-EPI 2020 equation that does not use a race coefficient. Blood Venous blood specimen / Unknown 05/30/2025 9:01 AM EDT 05/30/2025 9:05 AM EDT Bryan Allen MD LAB POINT OF CARE TEST DOCKED DEVICE UNSOLICITED RESULTS Final Result Performing Organization Address City/[facility] Co de Phone Number HEALTHCARE LAB [address] LAB [address] [place] [address] * (ABNORMAL) Magnesium (05/30/2025 8:57 AM EDT) Magnesium, Plasma 1.8(L) 1.9 - 2.4 mg/dL 05/30/2025 9:[address] [facility] Blood Venous blood specimen / Unknown Venipuncture / Unknown 05/30/2025 8:57 AM EDT 05/30/2025 9:09 AM EDT Jignesh Olvera PA LAB BLOOD ORDERABLES Final R esult [facility] [address] [place] [address] * (ABNORMAL) Basic metabolic panel (05/30/2025 8:57 AM EDT) Glucose, Plasma 271(H) 74 - 99 mg/dL 05/30/2025 9:[address] [facility] BUN, Plasma 27(H) 8 - 23 mg/dL 05/30/2025 9:[address] [facility] Creatinine, Plasma 1.10 0.60 - 1.10 mg/dL 05/30/2025 9:[address] [facility] BUN/Creatinine Ratio 25 05/30/2025 9:[address] [facility] Sodium, Plasma 138 136 - 145 mmol/L 05/30/2025 9:[address] [facility] Potassium, Plasma 4.7 3.6 - 4.9 mmol/L 05/30/2025 9:[address] [facility] Comment:Hemolyzed, result ma y be falsely increased. Chloride, Plasma 102 97 - 107 mmol/L 05/30/2025 9:[address] [facility] CO2, Plasma 22 22 - 29 mmol/L 05/30/2025 9:[address] [facility] Anion Gap 14 6 - 16 mmol/L 05/30/2025 9:[address] [facility] Total Calcium, Plasma 9.8 8.9 - 10.2 mg/dL 05/30/2025 9:[address] [facility] eGFRcr 52.2 mL/min/1.7 3m*2 05/30/2025 9:[address] [facility] Comment:Reported eGFRcr in m L/min/1.73m2 is based the CKD-EPI 2020 equation that does not use a race coefficient. Blood Venous blood specimen / Unknown Venipuncture / Unknown 05/30/2025 8:57 AM EDT 05/30/2025 9:09 AM EDT us Jignesh GORDON LAB BLOOD ORDERABLES Final R esult [facility] [address] [place] [address] * Hemogram (CBC) (05/30/2025 8:57 AM EDT) WBC Count 8.97 3.70 - 10.30 10*3/uL LAB HEMATOLOGY METHOD 05/30/2025 9:[address] [facility] RBC Count 4.72 3.90 - 5.20 10*6/uL LAB HEMATOLOGY METHOD 05/30/2025 9:[address] [facility] HGB 14.4 11.2 - 15.7 g/dL LAB HEMATOLOGY METHOD 05/30/2025 9:[address] [facility] HCT 43.8 34.0 - 45.0 % LAB HEMATOLOGY METHOD 05/30/2025 9:[address] [facility] Platelet Count 249 155 - 369 10*3/uL LAB HEMATOLOGY METHOD 05/30/2025 9:[address] [facility] MCV 93 79 - 98 fL LAB HEMATOLOGY METHOD 05/30/2025 9:[address] [facility] MCH 30.5 26.0 - 32.0 pg LAB HEMATOLOGY METHOD 05/30/2025 9:[address] [facility] MCHC 32.9 30.7 - 35.5 g/dL LAB HEMATOLOGY METHOD 05/30/2025 9:[address] [facility] RDW 13.0 11.5 - 14.5 % LAB HEMATOLOGY METHOD 05/30/2025 9:[address] [facility] MPV 9.8 8.8 - 12.5 fL LAB HEMATOLOGY METHOD 05/30/2025 9:[address] [facility] nRBC 0.0 <=0.0 per 100 WBCs LAB HEMATOLOGY METHOD 05/30/2025 9:[address] [facility] Blood Venous blood specimen / Unknown Venipuncture / Unknown 05/30/2025 8:57 AM EDT 05/30/2025 9:11 AM EDT Jignesh GORDON LAB BLOOD ORDERABLES Final R esult [facility] [address] [place] [address] documented in this encounter Visit Diagnoses Diagnosis [...] 1142, Until Thu05/30/25 at 1157, Routine, Intraprocedure Given 05/30/2025 11:42 AM EDT 65 mL lidocaine (Xylocaine) 2 % injection As needed, Starting on Thu05/30/25 at 1111, Until Thu05/30/25 at 1157, Routine, Intraprocedure Given 05/30/2025 11:11 AM EDT 10 mL midazolam (Versed) injection As needed, Starting on Thu05/30/25 at 1043, Until Thu05/30/25 at 1157, Routine, Intraprocedure Given 05/30/2025 11:40 [...] Time MRSA Comment:Added from external infection. Source: [facility]. 09/07/2019 Assessment Noted Time PHQ-9 Depression Total Score: 0 04/24/20 1:50 PM EDT A fall risk assessment has been complete d for the patient 04/24/2025 1:50 PM EDT A Body Mass Index follow-up plan has been documented for the patient 05/30/2025 3:57 PM EDT documented as of this encounter Care Teams Career Education Teacher Relationship Specialty Start Date End Date Heladio Palm MD [address] [place] [address] PCP - General Internal Medicine 05/02/22 documented as of this encounter
--- OUTSIDE RECORDS SUMMARY | 2025-06-05 16:00 | XMS_ITS | Encounter Summary ---
Author Organization [facility] Address [address] [place] [address] Care Team Providers Care Wallpaper Printer Helper Name Role Phone Heladio Palm MD Primary Care Provider + [phone] Reason for Referral * Consultation (Routine) - Authorized Specialty Diagnoses / Procedures Referred By Contac t Referred To Contact Diagnoses Hyperparathyroidism, unspecified (CMS/HCC) Type 2 diabetes mellitus with other specified complication, without long-term current use of insulin Essential hypertension Alejandra Camacho MD [address] [facility] [address] [place] [phone] Phone: tel: fax: Referral ID Status Reason Start Date Expiration Date V isits Requested Visits Authorized [id number] Authorized 06/05/2025 12/05/2026 1 1 Reason for Visit * Reason Comments Follow-up Routine follow-up Encounter Details Date Type Department Care Team (Late st Contact Info) Description 06/05/2025 4:00 PM EDT Office Visit [facility] Nephrology, Bone & Mineral Metabolism [address] [place] [address] Alejandra Camacho MD [address] [facility] [address] [place] [address] Hyperparathyroidism, unspecified (CMS/HCC) (Primary Dx); Stage 3 chronic kidney disease, unspecified whether stage 3a or 3b CKD (CMS/HCC); Type 2 diabetes mellitus with other specified complication, without long-term current use of insulin (CMS/HCC); Essential hypertension Social History Tobacco Use Types [...] Sign Reading Time Taken Comments Blood Pressure 106/42 06/05/2025 3:57 PM EDT Pulse 74 06/05/2025 3:57 PM EDT Temperature 36.7 C (98 F) 06/05/2025 3:57 PM EDT Respiratory Rate - - Oxygen Saturation 93% 06/05/2025 3:57 PM EDT Inhaled Oxygen Concentration - - Weight 106 kg (232 lb 12.9 oz) 06/05/2025 3:57 P M EDT Height 154.9 cm (5' 1 ) 06/05/2025 3:57 PM EDT Body Mass Index 43.99 06/05/2025 3:57 PM EDT documented in this encounter Miscellaneous Notes * Progress Notes - Alcides King MD - 06/05/2025 4:00 PM EDT Images from the original note were not included. Nephrology Clinic Follow Up Patient: Mirtha Barrios Visit Date: (Not on file) Subjective: Chief complaint: Feeling great HPI: Mrs. Mirtha Barrios is a 74 y.o. female with a history of CAD post stent in LAD, Afib, left ventricular hypertrophy, chronic fatigue, asthma, HTN, DELL on BiPAP, history of IgA Vasculitis (2007) who presents for CKD f/u. Last visit 08/2024 Since then, she has been doing fine. She got hospitalized for AFib RVR/atrial flutter 3 weeks ago and treated medically. Subsequently received Watchman device last Thursday and currently on aspirin and Plavix with no acute complaints. She is here today for follow-up with no acute complaints. Denied any chest pain or shortness of breath. No urinary symptoms ROS: 14-point review negative except for positives detailed in the HPI. Objective: Visit Vitals OB Status Postmenopausal Smoking Status Former BP: ()/() Arterial Line BP: ()/() @INTAKEOUTPUTBRIEF@ Exam: General: Comfortable, not in distress, conversant and cooperative Head: Atraumatic and normocephalic Eyes: No Icterus. No pallor Ears: Ears appear intact with no abnormalities noted Throat: No oral lesions, no thrush Neck: Supple, trachea midline Lungs: Clear to auscultation bilaterally, equal air entry, no wheezing or crackles Heart: Normal S1 and S2, no murmur, no gallop, No JVD, no lower extremity swelling Abdomen: Soft, no tenderness, no organomegaly, normal bowel sounds, no organomegaly Extremities: pulses equal bilaterally Skin: No bleeding, bruising or rash, normal skin turgor and elasticity Neurologic: Cranial nerves appear intact with no evidence of facial asymmetry, normal motor and sensory functions in all 4 extremities Psych: Alert and oriented x 3, normal mood History & Problem Lists: Problem List[1] Past 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[2] Problem List[3] Surgical History[4] Family History[5] Social History Socioeconomic History Marital status: Spouse name: Not on file Number of children: Not on file Years of education: Not on file Highest education level: Not on file Occupational History Not on file Tobacco Use Smoking status: Former Current packs/day: 0.00 Average packs/day: 1 pack/day for 7.0 years (7.0 ttl pk-yrs) Types: Cigarettes Start date: 09/07/1992 Quit date: 09/07/1999 Years since quittin.7 Passive exposure: Past Smokeless tobacco: Never Vaping Use Vaping status: Never Used Substance and Sexual Activity Alcohol use: Not Currently Drug use: Never Comment: Drug use: Drug use Sexual activity: Not Currently Partners: Male control/protection: None Other Topics Concern Not on file Social History Narrative 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 Sexually Active Marital Status: Social Drivers of Health Financial Resource Strain: Not on file Food Insecurity: Not on file Transportation Needs: Not on file Physical Activity: Not on file Stress: Not on file Social Connections: Unknown (06/15/2023) Received from [facility] Family and Community Support Help with Day-to-Day Activities: Not on file Lonely or Isolated: Not on file Intimate Partner Violence: Unknown (06/15/2023) Received from [facility] Abuse Screen Unsafe at Home or Work/School: Not on file Feels Threatened by Someone?: Not on file Does Anyone Keep You from Contacting Others or Doint Things Outside the Home?: Not on file Physical Sign of Abuse Present: Not on file Housing Stability: Unknown (06/15/2023) Received from [facility] Housing Stability Current Living Arrangements: Not on file Potentially Unsafe Housing Conditions: Not on file Allergies[6] Medications: Home Medications: Current Medications[7] Current Medications: Current Scheduled Medications[8] Current Continuous Medications[9] Lab & Imaging: Renal Panel: Lab Results Component Value Date NA 138 05/30/2025 K 4.7 05/30/2025 CL 102 05/30/2025 CO2 22 05/30/2025 BUN 27 (H) 05/30/2025 CA 8.8 (L) 12/27/2019 PHOS 3.5 02/08/2024 MBD: Lab Results Component Value Date PTH 52 11/23/2023 CALCIUM 9.8 05/30/2025 CAION 5.3 (H) 11/27/2019 PHOS 3.5 02/08/2024 Urine: Lab Results Component Value Date URINEPRO Negative 11/23/2023 UTPCR 0.1 11/23/2023 ALBCREA 11/23/2023 Comment: Unable to calculate, at least one value is above or below the detection limit. Lab Results Component Value Date URBC 1 11/23/2023 WBCU 11 - 20 (A) 11/23/2023 PROTUR 6 11/23/2023 Lab Results Component Value Date URINEPRO Negative 11/23/2023 UTPCR 0.1 11/23/2023 ALBCREA 11/23/2023 Comment: Unable to calculate, at least one value is above or below the detection limit. CBC: Lab Results Component Value Date WBC 8.97 05/30/2025 RBC 4.72 05/30/2025 HGB 14.4 05/30/2025 HCT 43.8 05/30/2025 PLT 249 05/30/2025 MCV 93 05/30/2025 MCH 30.5 05/30/2025 MCHC 32.9 05/30/2025 RDW 13.0 05/30/2025 NRBC 0.0 05/30/2025 Iron studies: Lab Results Component Value Date TIBC 256 01/11/2014 Creatinine, Plasma (mg/dL) Date/Time Value 05/30/2025 0857 1.10 02/08/2024 1532 1.57 (H) 11/23/2023 1553 1.30 (H) eGFRcr (mL/min/1.73m*2) Date/Time Value 05/30/2025 0857 52.2 02/08/2024 1532 34.3 11/23/2023 1553 43.2 POCT eGFR (mL/min/1.73m*2) Date/Time Value 05/30/2025 0901 43 BUN, Plasma (mg/dL) Date/Time Value 05/30/2025 0857 27 (H) 02/08/2024 1532 32 (H) 11/23/2023 1553 25 (H) Albumin, Plasma (g/dL) Date/Time Value 02/08/2024 1532 4.3 11/23/2023 1553 4.1 05/06/2023 1500 4.2 Potassium, Plasma (mmol/L) Date/Time Value 05/30/2025 0857 4.7 02/08/2024 1532 4.1 11/23/2023 1553 4.1 CO2, Plasma (mmol/L) Date/Time Value 05/30/2025 0857 22 02/08/2024 1532 24 11/23/2023 1553 25 Sodium, Plasma (mmol/L) Date/Time Value 05/30/2025 0857 138 02/08/2024 1532 139 Total Calcium, Plasma (mg/dL) Date/Time Value 05/30/2025 0857 9.8 02/08/2024 1532 10.4 (H) 11/23/2023 1553 10.1 Ionized Calcium, Serum (mg/dL) Date/Time Value 05/27/2016 1726 5.4 (H) Phosphorus, Plasma (mg/dL) Date/Time Value 02/08/2024 1532 3.5 11/23/2023 1553 3.2 12/05/2019 0240 3.4 Magnesium, Plasma (mg/dL) Date/Time Value 05/30/2025 0857 1.8 (L) 12/26/2019 0305 1.3 (L) 11/29/2019 0419 1.6 (L) WBC Count (10*3/uL) Date/Time Value 05/30/2025 0857 8.97 11/23/2023 1553 12.93 (H) 05/06/2023 1500 11.34 (H) HGB (g/dL) Date/Time Value 05/30/2025 0857 14.4 11/23/2023 1553 13.7 05/06/2023 1500 14.0 Platelet Count (10*3/uL) Date/Time Value 05/30/2025 0857 249 11/23/2023 1553 289 05/06/2023 1500 257 Vitamin D 25 Hydroxy (ng/mL) Date/Time Value 05/06/2023 1500 39.8 PTH Intact Total (pg/mL) Date/Time Value 11/23/2023 1553 52 PTH (CAP) (pg/mL) Date/Time Value 05/27/2016 1726 36 Protein/Creatinine Ratio (mg/mg Creat) Date/Time Value 11/23/2023 1551 0.1 RBC, Urine (/HPF) Date/Time Value 11/23/2023 1551 1 11/23/2019 1008 4-10 03/16/2017 1229 0-3 WBC, Urine (/HPF) Date/Time Value 11/23/2023 1551 11 - 20 (A) 11/23/2019 1008 16-30 03/16/2017 1229 >50 Transferrin Saturation (%) Date/Time Value 01/11/2014 0718 36 Ferritin, Serum (ng/mL) Date/Time Value 01/11/2014 0718 377 (H) Imaging (past 24h): I personally visualized and interpreted all of the imaging studies below and I agree with formal interpretation. Assessment & Plan: SUMMARY: Mrs. Mirtha L Lester Pack is a 73 y.o. female with a history of CAD post stent in LAD, Afib, left ventricular hypertrophy, chronic fatigue, asthma, HTN, DELL on BiPAP, history of IgA Vasculitis (2007) who presents for consultation regarding her CKD. ASSESSMENT: CKD stage 3a w/ Hx of IgA Vasculitis w/ Non-nephrotic Proteinuria Baseline Cr 1.3-1.5, today Cr 1.10 Etiology: Likely multifactorial to include IgA vasculitis, hx of CRISTINE, partial embolization of L renal artery, HTN and DKD PCR 0.1, ACR undetectable (both stable) On losartan and Farxiga T2DM HgB A1C 7.1% May 2025 Currently on Farxiga, Metformin & Ozempic Hypomagnesemia Chronic problem. On MgO 800 mg QD HTN Well controlled, currently on Losartan 50 daily, Coreg 12.5 mg BID and Cardizem 180 mg every day On lasix 40 mg QD CAD s/p PCI to LAD Watchman device May 2025 On Clopidogrel & Aspirin Hyperlipidemia in CKD Lipitor 80 mg HS DELL Uses BiPAP Morbid Obesity BMI 44 Working on weight loss, down 1kg in 3mo and 10kg in 1 year RECOMMENDATIONS & PLAN: Renal function stable with minimal proteinuria while on Losartan and Farxiga Magnesium is always low and seems to be contributing to her cardiac issues/arrhythmias. Advised herto increase magnesium oxide to 800 mg twice daily. We will check her magnesium level with her labs next clinic visit. If remains low, we will consider adding amiloride Counseled on importance of maintaining tight glycemic control and BP control. Okay to start taking Ozempic prescribed by her PCP Counseled to avoid dehydration, NSAIDs RTC in 4 months with repeat lab Alcides King MD Nephrology and Critical Care Fellow - PGY4 Pager [phone] or [employer] [place] secure chat [1] Patient Active Problem List Diagnosis Acute on chronic respiratory failure with hypoxia and hypercapnia Atrial fibrillation (CMS/HCC) Allergic rhinitis, seasonal Chronic GERD CAD (coronary artery disease) Chronic hypercapnic respiratory failure Depression with anxiety Diabetes mellitus type 2, uncontrolled Essential hypertension Hyperlipidemia Asthma with acute exacerbation Incontinence Laryngeal spasm Moderate persistent asthma without complication Super obesity Neuropathy Nonalcoholic steatohepatitis Obesity hypoventilation syndrome (CMS/HCC) Obstructive sleep apnea Seasonal and perennial allergic rhinitis Subclinical hypothyroidism Systolic CHF, chronic (CMS/HCC) Type 2 diabetes mellitus Vertigo Elevated serum creatinine Stage 3 chronic kidney disease (CMS/HCC) Paroxysmal atrial fibrillation (CMS/HCC) [2] Past 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: Diagnosis Date Allergic purpura (CMS/HCC) Henoch-Schonlein purpura Allergic rhinitis Allergy to metal 1966 Anemia Arrhythmia 1974 Asthma Childhood 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 Mukherjee's [...] respiratory system History of chronic bronchitis Snoring [3] Patient Active Problem List Diagnosis Acute on chronic respiratory failure with hypoxia and hypercapnia Atrial fibrillation (CMS/HCC) Allergic rhinitis, seasonal Chronic GERD CAD (coronary artery disease) Chronic hypercapnic respiratory failure Depression with anxiety Diabetes mellitus type 2, uncontrolled Essential hypertension Hyperlipidemia Asthma with acute exacerbation Incontinence Laryngeal spasm Moderate persistent asthma without complication Super obesity Neuropathy Nonalcoholic steatohepatitis Obesity hypoventilation syndrome (CMS/HCC) Obstructive sleep apnea Seasonal and perennial allergic rhinitis Subclinical hypothyroidism Systolic CHF, chronic (CMS/HCC) Type 2 diabetes mellitus Vertigo Elevated serum creatinine Stage 3 chronic kidney disease (CMS/HCC) Paroxysmal atrial fibrillation (CMS/HCC) [4] Past Surgical History: Procedure Laterality Date BLADDER SURGERY N/A Bladder Surgery from [facility] CARDIAC CATHETERIZATION June 2022 CATARACT EXTRACTION N/A Cataract Extraction from [facility] CHOLECYSTECTOMY N/A 2013 Cholecystectomy from [facility] HYSTERECTOMY N/A 1987 Hysterectomy from [facility] INTRAOCULAR LENS INSERTION KIDNEY SURGERY bleeding from kidney, fixed in IR OTHER SURGICAL HISTORY N/A Biopsy Skin from [facility] TOTAL ABDOMINAL HYSTERECTOMY N/A Total Abdominal Hysterectomy from [facility] [5] Family History Problem Relation Name Age of Onset Alzheimer's disease Mother Mom Conversions - Other Mother Mom Stroke Of The Left Anterior Cerebral Artery Diabetes Mother Mom Hypertension Mother Mom Stroke Mother Mom Heart disease Father Dad Conversions - Other Father Dad Myocardial Infarction Arrhythmias Other (lung mass) Father Dad Hypertension Father Dad Alcohol abuse Father Dad Heart attack Father Dad [6] Allergies Allergen Reactions Codeine Anaphylaxis, Nausea, Unknown [...] - please document in the comment field [7] Current Outpatient Medications: acetaminophen (Tylenol 8 Hour) 650 MG ER tablet, Take 1 tablet by mouth every 8 hours as needed formild pain. Do not crush, chew, or split., Disp: , Rfl: aspirin 81 MG EC tablet, Take 1 tablet by mouth daily., Disp: , Rfl: atorvastatin (Lipitor) 80 MG tablet, TAKE 1 TABLET BY MOUTH 1 TIME EACH DAY. (Patient taking differently: Take 1 tablet by mouth daily.), Disp: 90 tablet, Rfl: 3 biotin 1000 MCG tablet, 1 (one) time each day at the same time., Disp: , Rfl: carvedilol (Coreg) 25 MG tablet, TAKE 1 TABLET BY MOUTH TWICE A DAY FOR 30 DAYS (Patient taking differently: Take 0.5 tablets by mouth 2 times a day with meals.), Disp: , Rfl: cholecalciferol (Vitamin D3) 25 MCG (1000 UT) tablet, Take 1 tablet by mouth daily., Disp: , Rfl: clopidogrel (Plavix) 75 MG tablet, Take 1 tablet by mouth daily., Disp: , Rfl: dapagliflozin (Farxiga) 10 MG tablet, Take 1 tablet by mouth daily., Disp: , Rfl: dilTIAZem CD (Cardizem CD) 240 MG 24 hr capsule, Take 1 capsule by mouth nightly., Disp: , Rfl: fexofenadine (Manju) 180 MG tablet, Take 1 tablet by mouth daily., Disp: , Rfl: furosemide (Lasix) 40 MG tablet, Take 1 tablet by mouth daily., Disp: , Rfl: levothyroxine (Synthroid, Levoxyl) 100 MCG tablet, Take 1 tablet by mouth daily., Disp: , Rfl: magnesium oxide (Mag-Ox) 400 (240 Mg) MG tablet, Take 1 tablet by mouth daily., Disp: , Rfl: venlafaxine (Effoxor) 100 MG tablet, Take 1 tablet by mouth daily., Disp: , Rfl: [8] [9] Cosigned by Alejandra Camacho MD at 06/08/2025 11:43 AM EDT Associated attestation - Alejandra Camacho MD - 06/08/2025 11:43 AM EDT I saw and evaluated the patient with the resident/fellow. I discussed the case with the resident/fellow and agree with the findings and plan as documented. documented in this encounter Plan of Treatment Upcoming Encounters Date Type Department Care Team (Late st Contact Info) Description 07/19/2025 1:20 PM EST Appointment [facility] [address] [place] [address] 07/26/2025 4:00 PM EST Office Visit [facility] [place] [address] [facility] [address] [facility] [place] [address] Svetlana Olguin PA [address] [place] [address] 08/14/2025 1:30 PM EST Office Visit [facility] [address] [place] [address] 10/03/2025 2:40 PM EST Office Visit [facility] Nephrology, Bone & Mineral Metabolism [address], [address] [place] [address] Alejandra Camacho MD [address] [facility] [address] [place] [address] 01/26/2026 11:00 AM EDT Office Visit [facility] [address] [place] [address] Luis Olivares MD [address] [facility] [address] [place] [address] Scheduled Orders Name Type Priority Associated Diagnoses Orde r Schedule Renal Function Panel, Plasma Lab Routine Hyperparathyroidism, unspecified ([facility]) Type 2 diabetes mellitus with other specified complication, without long-term current use of insulin ([facility]/HCC) Essential hypertension Expected: 10/05/2025 (Approximate), Expires: 12/07/2026 Urinalysis with reflex microscopic (Culture NOT Included) Lab Routine Hyperparathyroidism, unspecified ([facility]/HCC) Type 2 diabetes mellitus with other specified complication, without long-term current use of insulin (CMS/HCC) Essential hypertension Expected: 10/05/2025 (Approximate), Expires: 12/07/2026 Protein, Random, Urine with Creatinine Lab Routine Hyperparathyroidism, unspecified (CMS/HCC) Type 2 diabetes mellitus with other specified complication, without long-term current use of insulin ([facility]/HCC) Essential hypertension Expected: 10/05/2025 (Approximate), Expires: 12/07/2026 Creatinine, Random, Urine Lab Routine Hyperparathyroidism, unspecified (CMS/HCC) Type 2 diabetes mellitus with other specified complication, without long-term current use of insulin (CMS/HCC) Essential hypertension Expected: 10/05/2025 (Approximate), Expires: 12/07/2026 CBC and Differential Lab Routine Hyperparathyroidism, unspecified (CMS/[facility]) Type 2 diabetes mellitus with other specified complication, without long-term current use of insulin ([facility]/HCC) Essential hypertension Expected: 10/05/2025 (Approximate), Expires: 12/07/2026 PTH Intact Total Lab Routine Hyperparathyroidism, unspecified ([facility]) Type 2 diabetes mellitus with other specified complication, without long-term current use of insulin ([facility]) Essential hypertension Expected: 10/05/2025 (Approximate), Expires: 12/07/2026 Vitamin D 25 Hydroxy Lab Routine Hyperparathyroidism, unspecified ([facility]) Type 2 diabetes mellitus with other specified complication, without long-term current use of insulin ([facility]) Essential hypertension Expected: 10/05/2025 (Approximate), Expires: 12/07/2026 Magnesium Lab Routine Hyperparathyroidism, unspecified ([facility]) Type 2 diabetes mellitus with other specified complication, without long-term current use of insulin ([facility]) Essential hypertension Expected: 10/05/2025 (Approximate), Expires: 12/07/2026 Scheduled Referrals Name Type Priority Associated Diagnoses Orde r Schedule Follow Up Nephrology Outpatient Referral Routine Hyperparathyroidism, unspecified ([facility]) Type 2 diabetes mellitus with other specified complication, without long-term current use of insulin ([facility]) Essential hypertension 1 Occurrences starting 06/05/2025 until 07/05/2026 documented as of this encounter Visit Diagnoses Diagnosis Hyperparathyroidism, unspecified ([facility])- Primary Hyperparathyroidism, unspecified Stage 3 chronic kidney disease, unspecified whether stage 3a or 3b CKD (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 Source: [facility]. 09/07/2019 Assessment Noted Time PHQ-9 Depression Total Score: 0 04/24/20 25 1:50 PM EDT A fall risk assessment has been complete d for the patient 06/05/2025 4:07 PM EDT A Body Mass Index follow-up plan has been documented for the patient 06/08/2025 11:44 AM EDT documented as of this encounter Care Teams Wallpaper Printer Helper Relationship Specialty Start Date End Date Heladio Palm MD [address] [place] [address] PCP - General Internal Medicine 05/02/22 documented as of this encounter
--- OUTSIDE RECORDS SUMMARY | 2025-06-22 08:15 | XMS_ITS ---
Author Organization [facility] Address [address] [place] [address] Care Team Providers Care Sterile Processing Technician Name Role Phone Heladio Palm Primary Care Provider REASON FOR VISIT med ck Encounters Encounter Location Date Provider Diagnosis [address] [address] 06/22/2025 Heladio Palm Plan Of Treatment No Information Progress Notes * Karo VILLAOB:[birth year] (75 yo F)Acc No.[id number]:06/22/2025 Progress Notes Patient: Mirtha LOMAX Provider: Haritha Palm MD :1950 A ge:75 Y S ex:Female Date:06/22/2025 Address:[address] [place], [place] [id number] Subjective: * Chief Complaints: * 1 . Med ck. * 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: Objective: * Vitals: Assessment: Plan: * Treatment: * * Electronic signature of Jeffy Palm MD FAAP on 06/28/2025 at 05:01 PM EDT Sign off status: Pending * Provider: Haritha Palm MD Date: Generated for Printi ng/Faxing/eTransmitting on: 05:01 PM EDT
[2025-06-28] VITALS (7 sets, daily range): BP systolic 92–135; BP diastolic 53–74; PULSE 59–85; RESP 12–18; TEMP 36.7–36.9; O2SAT 94–97; BMI 42.4
--- NOTE | 2025-06-28 16:40 | ECG_ITS ---
APPROVED REPORT Exam: Resting ECG HR:79 bpm ECG Measurements Heart Rate 79 AXES QRSd 85 QRS 59 QT 350 T 92 QTc 385 Conclusion ATRIAL FIBRILLATION LOW QRS VOLTAGE IN PRECORDIAL LEADS [QRS DEFLECTION < 1.0 mV IN CHEST LEADS] NONSPECIFIC ST & T-WAVE ABNORMALITY ABNORMAL RHYTHM ECG UNCONFIRMED REPORT Electronically signed by : Dano Peterson, 06/28/2025 23:11:12
--- NOTE | 2025-06-28 16:44 | XR_ITS ---
PROCEDURE INFORMATION: Exam: XR Chest Exam date and time: 06/28/2025 4:54 PM Age: 75 years old Clinical indication: Shortness of breath; Additional info: SOA TECHNIQUE: Imaging protocol: Radiologic exam of the chest. Views: 1 view. COMPARISON: 1. CR XR CHEST PORTABLE 02/15/2024 9:55 PM 2. CR XR CHEST PORTABLE 04/13/2025 5:50 PM FINDINGS: Lungs: Unremarkable. No consolidation. Pleural spaces: Unremarkable. No pleural effusion. No pneumothorax. Heart/Mediastinum: Unremarkable. No cardiomegaly. Bones/joints: Unremarkable. IMPRESSION: Stable chest x-ray with no acute disease.
--- NOTE | 2025-06-28 16:54 | ED_ITS ---
<Statement entered by Irina Peterson MD - 06/28/25 21:52> I was consulted by the VANIA, and we discussed the complexity of the problems being addressed. I approved the treatment and management plan for this patient's care in the emergency department, thus performing a substantive portion of the medical decision making. Irina Peterson MD, AMOS, FACEP Discharge Plan Disposition Patient Disposition: Home, Self-Care Condition: Good Prescriptions Prescriptions: No Action atorvastatin 40 mg tablet 40 mg PO HS levothyroxine 100 mcg tablet 100 mcg PO DAILY Patient Comments: TAKE 1 TABLET BY MOUTH EVERY DAY ascorbate calcium (vitamin C) 500 mg tablet 500 mg PO DAILY cholecalciferol (vitamin D3) 50 mcg (2,000 unit) capsule 50 mcg PO DAILY clopidogrel [Plavix] 75 mg tablet 75 mg PO DAILY Qty: 30 5RF pantoprazole [Protonix] 40 mg tablet,delayed release (DR/EC) 40 mg PO DAILY Qty: 30 5RF magnesium aspart,citrate,oxide 400 mg magnesium capsule 800 mg PO DAILY losartan 50 mg tablet 50 mg PO DAILY Qty: 30 2RF furosemide [Lasix] 40 mg tablet 40 mg PO DAILY PRN (Reason: edema) Qty: 30 2RF diltiazem HCl 180 mg capsule,extended release 24hr 180 mg PO HS Qty: 30 3RF spironolactone [Aldactone] 25 mg tablet 25 mg PO DAILY Qty: 30 2RF venlafaxine 100 mg tablet 100 mg PO DAILY metformin 750 mg Tablet Extended Release 24 Hr 750 mg PO HS dapagliflozin propanediol [Farxiga] 10 mg tablet 10 mg PO DAILY carvedilol 25 mg tablet 12.5 mg PO BID 30 Days Qty: 30 0RF Patient Comments: TAKE 1 TABLET BY MOUTH TWICE A DAY Referrals Follow up/Referrals: Heladio Palm MD [Primary Care Provider, Internal Medicine] - See instructions Activity Restrictions/Add. Instructions Additional Instructions/Restrictions: follow up with pcp hold synthroid until speaking to pcp if symptoms worsen or no improvment return Clinical Impressions Clinical Impression: A-fib Qualifiers: Atrial fibrillation type: paroxysmal Qualified Code(s): I48.0 - Paroxysmal atrial fibrillation Instructions Patient Instructions: DI for Atrial Fibrillation Print Language Print Language: Moldovan Discharge ED Provider: Irina Peterson General Adult [facility] General Chief complaint: Weakness Stated complaint: afib, racing heart, dizzy, weak Time Seen by Provider: 06/28/25 16:43 Mode of Arrival: Wheelchair Source of Information: Patient Description of Symptoms (Recalled from ER Triage Doc. by RN): Pt presents for evaluation of feeling weak, dizzy, and palpitations x 4 days. Pt states she has a hx of a-fib, and had a watchman's placed in may History of Present Illness HPI narrative: 75 yr old Female presents for feeling weak x 4 days, pt states over the past few days she has been watching her heart rate with her monitor and its been saying her heart rate is irregular.pt states hx of a fib. pt states she was taken off blood thinners due to a kidney bleed. Had watchman placed 05/30. was seen by cardiology in Apr and cardizem dose was decreased due to fatgiue. denies cp,pressure or discomfort. hx dm,htn,stent,a fib Related Data Home Medications ?Medication ?Instructions ?Recorded ?Confirmed ascorbate calcium (vitamin C) 500 500 mg PO DAILY 05/0805/02/25 mg tablet atorvastatin 40 mg tablet 40 mg PO HS 05/22/22 5 cholecalciferol (vitamin D3) 50 50 mcg PO DAILY 05/02/25 mcg (2,000 unit) capsule levothyroxine 100 mcg tablet 100 mcg PO DAILY 05/22/22 05/02/25 magnesium aspart,citrate,oxide 800 mg PO DAILY 4 05/02/25 dapagliflozin propanediol 10 mg 10 mg PO DAILY 5 05/02/25 tablet (Farxiga) metformin 750 mg tablet,extended 750 mg PO HS 03/20/25 05/02/25 release 24 hr venlafaxine 100 mg tablet 100 mg PO DAILY 03/20/25 Previous Rx's ?Medication ?Instructions ?Recorded clopidogrel 75 mg tablet (Plavix) 75 mg PO DAILY #30 t abs 07/01/22 pantoprazole 40 mg tablet,delayed 40 mg PO DAILY #30 t abs 07/01/22 release (Protonix) carvedilol 25 mg tablet 12.5 mg (1/2 x 25 mg) PO BID 30 04/15/25 days #30 tabs furosemide 40 mg tablet (Lasix) 40 mg PO DAILY PRN maria d ma #30 tabs 04/18/25 losartan 50 mg tablet 50 mg PO DAILY #30 tabs 04/07 11/01 spironolactone 25 mg tablet 25 mg PO DAILY #30 tabs (Aldactone) diltiazem HCl 180 mg 180 mg PO HS #30 caps capsule,extended release 24 hr Allergies Allergy/AdvReac Type Severity Reaction Status Date / Time ciprofloxacin (From Cipro) Allergy Verified 05/02/25 13:46 codeine Allergy Verified 05/02/25 13:46 Gadolinium-Containing Allergy Verified 05/02/25 13:46 Contrast Medi Iodinated Contrast Media Allergy Verified 05/02/25 13:46 Penicillins Allergy Verified 05/02/25 13:46 Sulfa (Sulfonamide Allergy Verified 05/02/25 13:46 Antibiotics) sulfamethoxazole (From Allergy Verified 05/02/25 13:46 Bactrim) trimethoprim (From Bactrim) Allergy Verified 05/02/25 13:46 PFSH PFSH Disclaimer: The information contained in this section may have been updated after the patient was seen, as this information can be updated by other users. 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) Fatigue Hypomagnesemia Osteoarthritis Barretts esophagus History of gastroesophageal reflux (GERD) Diabetes mellitus, type 2 Hypothyroid History of left heart catheterization (LHC) Cholecystectomy planned Cystocele Hysterectomy planned Basal cell carcinoma Right shoulder pain Atypical angina Palpitations Sinus tachycardia CAD (coronary atherosclerotic disease) Abnormal result of cardiovascular function study Hyperlipidemia Hypertension Chest pressure Diastolic dysfunction Palpitations Edema Prediabetes Dyspnea Abnormal electrocardiogram [ECG] [EKG] Nasal fracture Pleural effusion Severe sepsis with acute organ dysfunction E. 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) Smoking Status: Never smoker how long ago did patient quit smokin years ago alcohol intake: never substance use type: denies use current occupational status: retired Travel in the last 8 weeks?: None household members: other housing: other Have you lived/traveled outside US in past 30 days?: No Contact w/someone who lives/traveled outside US past 30 days?: No Exposure to someone with infectious disease in past 14 days?: No Do you have a fever (greater than 100.4 F or 38 C)?: No Have you tested positive for COVID-19?: No Exposed to someone with COVID-19 in past 14 days?: No Do you have a sore throat?: No Do you have a cough?: No Do you have any weakness?: No Do you have any diarrhea?: No Are you experiencing any unusual bleeding?: No Do you have any muscle aches/pain?: No Do you have any abdominal pain?: No Are you experiencing loss of taste or smell?: No Other 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 Have you received the Flu Vaccine for this season: No Have you received the Pneumonia Vaccine: Yes ROS Obtained: Yes Systems reviewed as appropriate & no additional complaints except as documented Constitutional Constitutional: Reports system reviewed and no additional complaints, except as documented, Reports as per HPI and Reports fatigue Cardiovascular Cardiovascular: Reports system reviewed and no additional complaints, except as documented, Reports as per HPI, Denies chest pain, Denies chest pain at rest, Reports irregular heart rhythm and Reports palpitations Endocrine Endocrine: Reports system reviewed and no additional complaints, except as documented, Reports as per HPI, Reports fatigue and Reports palpitations Physical Exam General General appearance: alert and in no apparent distress Respiratory Respiratory exam: Present normal lung sounds bilaterally Cardiovascular Cardiovascular exam: Present irregular rhythm Neurological Exam Neurological exam: Present alert and oriented X3 Skin Skin exam: Present warm and intact Medical Decision Making Medical Records Medical records reviewed: Yes I reviewed the patient's medical records. Screening: Per USPSTF and CDC recommendations, given the prevalence of disease in our region, it is our hospital?s policy to screen for HIV and viral Hepatitis for all patients aged 18 and over and those with ongoing risk factors. Nii Inquiry Pt receiving controlled substance: No Nii was queried for this patient: No Vital Signs: 06/28/25 16:40 06/28/25 17:01 06/28/25 17:31 Temperature 98.5 F Temperature Source Oral Pulse Rate 69 74 Pulse Rate [Right] 74 Respiratory Rate 18 12 14 Blood Pressure 104/66 L 92/53 L Blood Pressure [Right Arm] 135/65 Blood Pressure Mean 79 66 Blood Pressure Mean [Right Arm] 88 Blood Pressure Source [Right Arm] Automatic Cuff Blood Pressure Position [Right Arm] Sitting 02 Sat by Pulse Oximetry 95 96 96 Oxygen Delivery Method Room Air 06/28/25 18:01 Temperature Temperature Source Pulse Rate 85 Pulse Rate [Right] Respiratory Rate 12 Blood Pressure 96/59 L Blood Pressure [Right Arm] Blood Pressure Mean 66 Blood Pressure Mean [Right Arm] Blood Pressure Source [Right Arm] Blood Pressure Position [Right Arm] 02 Sat by Pulse Oximetry 94 L Oxygen Delivery Method Lab Data Lab results reviewed: Yes I reviewed the patient's lab results. Lab Results 06/28/25 16:50: WBC 9.9, RBC 5.10, Hgb 15.6, Hct 47.5 H, MCV 93.1, MCH 30.6, MCHC 32.8, RDW 12.9, Plt Count 258, MPV 9.8, Neut % (Auto) 66.8, Lymph % (Auto) 20.3, Bacon % (Auto) 5.6, Eos % (Auto) 6.4, Baso % (Auto) 0.6, Neut # (Auto) 6.6, Lymph # (Auto) 2.0, Bacon # (Auto) 0.6, Eos # (Auto) 0.6 H, Baso # (Auto) 0.1, D- Dimer 0.66 H, Sodium 140, Potassium 4.1, Chloride 100, Carbon Dioxide 28, Anion Gap 16.1 H, BUN 26 H, Creatinine 1.40 H, Estimated Creat Clear 27, Estimated GFR 37 L, Est GFR ( Amer) 44 L, Glucose 163 H, Calcium 10.4 H, Magnesium 1.4 L, Total Bilirubin 0.5, AST 23, ALT 20, Alkaline Phosphatase 97, Troponin I < 0.01, Total Protein 6.9, Albumin 4.1, Globulin 2.8, Albumin/Globulin Ratio 1.5, TSH 0.07 L, Free T4 1.45 06/28/25 16:50 06/28/25 16:50 Orders (Tests/Meds): ED MEDICATIONS Generic Name Dose Route Start Last Admin Trade Name Freq PRN Reason Stop Dose Admin Sodium Chloride 10 ml 06/28/25 16:44 Sodium Chloride 0.9% 10ml Flush Syringe IV 07/28/25 16:43 NEEDED PRN Maintain IV Site Discontinued Medications Generic Name Dose Route Start Last Admin Trade Name Michele PRN Reason Stop Dose Admin Magnesium Sulfate 2 gm in 50 mls @ 50 mls/hr 06/28/25 18:00 06/28/25 18:12 Magnesium Sulfate 2gm/50ml Premix IV 06/28/25 18:59 50 mls/hr ONCE ONE Administration ORDERS Category Date Time Status Chest XR -- portable [XR chest portable] Stat Exams 06/28/25 16:44 Taken Complete Blood Count Auto Diff Stat Lab 06/28/25 16:50 Completed Comprehensive Metabolic Panel Stat Lab 06/28/25 16:50 Completed D-Dimer Stat Lab 06/28/25 16:50 Completed Free T4 (Free Thyroxine) Stat Lab 06/28/25 16:50 Completed Magnesium Stat Lab 06/28/25 16:50 Completed TSH [Thyroid Stimulating Hormone] Stat Lab 06/28/25 16:50 Completed Troponin I Q3H Lab 06/28/25 19:45 Ordered Troponin I Q3H Lab 06/28/25 22:45 Ordered Troponin I Stat Lab 06/28/25 16:50 Completed Medical Decision Narrative: In summary patient is a 75 yr old female who presents to the emergency department for evaluation of weakness,fatigue, palpitations and dizzy for 4 days, pt states she has been watching her hr on her bp monitor and it has not been getting any better and with symptoms. HX of A fib.Patient is hemodynamically stable upon arrival, afebrile. Differential diagnosis-a fib,hypothyroid,mi. unremarkable physical exam. Initial workup will be conducted with labs, chest x ray. Initial inventions include . IV magnesium. Initial workup reviewed by me, magnesium- low, tsh-low. Upon repeat evaluation pt states she feeling slight better and comfortable going home and following up with pcp. rate controlled,vss. mag given. follow up with pcp/cardiology this week. Critical Care Critical Care Time Critical Care Time: No
[2025-06-28 17:01] LABS: Hematocrit 47.5 % (37.0-47.0); Hemoglobin 15.6 g/dL (12.2-16.2); Immature Granulocytes % 0.3 %; Mean Corpuscular HGB Conc 32.8 g/dL (31.8-35.4); Mean Corpuscular Hemoglobin 30.6 pg (27.0-31.2); Mean Corpuscular Volume 93.1 fl (81-99); Nucleated Red Blood Cells % 0 %; Platelet Count 258 K/mm3 (142-424); Red Blood Count 5.10 M/mm3 (4.20-5.40); Red Cell Distribution Width-SD 44.0 fL; White Blood Count 9.9 K/mm3 (4.8-10.8)
--- OUTSIDE RECORDS SUMMARY | 2025-06-28 17:01 | XMS_ITS | Encounter Summary ---
[facility] Address [address] [place] [address] Care Team Providers Care Warp Tester Name Role Phone Dano Romero MD Primary Care Provider [phone] Encounter Details Date Type Department Care Team (Late st Contact Info) Description 11/20/2017 External CPT II TILE GRINDER - [facility] Social History Tobacco Use [...] documented as of this encounter Care Teams Warp Tester Relationship Specialty Start Date End Date Dano Romero MD [address] [place] [address] PCP - General Internal Medicine 09/29/19 documented as of this encounter
--- OUTSIDE RECORDS SUMMARY | 2025-06-28 17:01 | XMS_ITS | Encounter Summary ---
[facility] [address] [place] [address] Care Team Providers Care Tankage Grinder Operator Name Role Phone Dano Romero MD Primary Care Provider [phone] Reason for Visit * Reason Onset Date Comments Med Refill 11/16/2018 Encounter Details Date Type Department Care Team (Late st Contact Info) Description 11/16/2018 Refill [facility] [address] [phone] Huber Grossman MD Social History Tobacco Use [...] documented as of this encounter Care Teams Tankage Grinder Operator Relationship Specialty Start Date End Date Dano Romero MD [address] [place] [address] PCP - General Internal Medicine 09/29/19 documented as of this encounter
--- OUTSIDE RECORDS SUMMARY | 2025-06-28 17:01 | XMS_ITS | Encounter Summary ---
[facility] [address] [place] [address] Care Team Providers Care Custody Assistant Name Role Phone Dano Romero MD Primary Care Provider [phone] Encounter Details Date Type Department Care Team (Late st Contact Info) Description 02/02/2018 Telephone [facility] [address] [place] [phone] Huber Grossman MD Social History Tobacco [...] documented as of this encounter Care Teams Custody Assistant Relationship Specialty Start Date End Date Dano Romero MD [address] [place], [place] [id number] PCP - General Internal Medicine 09/29/19 documented as of this encounter
--- OUTSIDE RECORDS SUMMARY | 2025-06-28 17:01 | XMS_ITS | Encounter Summary ---
Author Organization [facility] Address [address] [place] [address] Care Team Providers Care Medical Editor Name Role Phone Heladio Palm MD Primary Care Provider + [phone] Encounter Details Date Type Department Care Team (Late Contact Info) Description 11/03/2024 Orders Only External Location [address] [place] [phone] Provider, External Social History Tobacco Use Types [...] Department Care Team (Late Contact Info) Description 07/19/2025 1:20 PM EST Appointment [facility] [address] [place] [phone] 07/26/2025 4:00 PM EST Office Visit [facility] [place] [address], [address] [place] [phone] Svetlana Olguin PA [address] [place] [address] 08/14/2025 1:30 PM EST Office Visit [facility] [address] [place] [address] 10/03/2025 2:40 PM EST Office Visit [facility]ph[facility], [facility] Min[facility] [address], [address] [place] [address] Alejandra Camacho MD [address] [facility] [address] [place] [address] 01/26/2026 11:00 AM EDT Office Visit [facility] [address] [place] [address] Luis Olivares MD [address] [facility] [address] [place] [address] documented as of this encounter Procedures Procedure Name Priority Date/Time Associated Diagnosis Comments MR MSK OUTSIDE IMAGES 11/03/2024 2:21 PM EST documented in this encounter Results * MR MSK OUTSIDE IMAGES (11/03/2024 2:21 PM EST) Anatomical Region Laterality Modality Magnetic Resonan ce 11/03/2024 2:21 PM EST External Provider IMG MRI PROCEDURES Final Resul t documented in this encounter Visit Diagnoses Not on filedocumented in this encounter Additional Health Concerns Infection Onset Date Last Indicated Resolved Time MRSA Comment:Added from external infection. Source: [employer]. 09/07/2019 Assessment Noted Time PHQ-9 Depression Total Score: 12 023 12:53 PM EDT A fall risk assessment has been complete d for the patient 08/08/2024 12:49 PM EST A Body Mass Index follow-up plan has been documented for the patient 08/18/2024 8:26 PM EST documented as of this encounter Care Teams Medical Editor Relationship Specialty Start Date End Date Heladio Palm MD [address] [place] [address] PCP - General Internal Medicine 05/02/22 documented as of this encounter
--- OUTSIDE RECORDS SUMMARY | 2025-06-28 17:02 | XMS_ITS | Encounter Summary ---
Author Organization [facility] Address [address] [place] [address] Care Team Providers Care Paramedic Supervisor Name Role Phone Heladio Palm MD Primary Care Provider + [phone] Reason for Visit * Reason Comments Med Refill Encounter Details Date Type Department Care Team (Late st Contact Info) Description 05/05/2024 Refill [facility] [place] [address] [place] [address] Willow Fry PA [address] [place] [address] Coronary artery disease involving [place] coronary artery of [place] heart without angina pectoris Social History Tobacco [...] EST Appointment [facility] [address] [place] [phone] 07/26/2025 4:00 PM EST Office Visit [facility] [place] [address] [facility], [address] [place] [phone] Svetlana Olguin PA [address] [place] [address] 08/14/2025 1:30 PM EST Office Visit [facility] [address] [place] [address] 10/03/2025 2:40 PM EST Office Visit [facility], [facility] Mineral Metabolism [address], [address] [place] [address] Alejandra Camacho MD [address] [facility] [address] [place] [address] 01/26/2026 11:00 AM EDT Office Visit [facility] [address] [place] [address] Luis Olivares MD [address] [address] documented as of this encounter Visit Diagnoses Diagnosis Coronary artery disease involving [place] coronary artery of [place] heart without angina pectoris documented in this encounter Additional Health Concerns Infection Onset Date Last Indicated Resolved Time MRSA Comment:Added from external infection. Source: [facility] [employer]. 09/07/2019 Assessment Noted Time PHQ-9 Depression Total Score: 12 023 12:53 PM EDT A fall risk assessment has been complete d for the patient 02/08/2024 3:04 PM EDT A Body Mass Index follow-up plan has been documented for the patient 03/30/2024 2:46 PM EDT documented as of this encounter Care Teams Paramedic Supervisor Relationship Specialty Start Date End Date Heladio Palm MD [address] [place] [address] PCP - General Internal Medicine 05/02/22 documented as of this encounter
--- OUTSIDE RECORDS SUMMARY | 2025-06-28 17:02 | XMS_ITS | Encounter Summary ---
Author Organization [facility] Address [address] [place] [address] Care Team Providers Care Physician Gynecologist Name Role Phone Heladio Palm MD Primary Care Provider + [phone] Encounter Details Date Type Department Care Team ([facility] Contact Info) Description 05/03/2025 Telephone [facility] Min[facility] Met[facility] [address] [facility] [facility], [address] [place] [address] lAejandra Camacho MD [address] [place] [address] Social History Tobacco Use Types [...] speak w/nurse about new Rx's from her Business Information Consultant (irregular heart rate) Best contact number: [phone] (mobile) Optimal time of day to reach [...] EST Appointment [facility] [address] [place] [address] 07/26/2025 4:00 PM EST Office Visit [facility] [place] [address] [facility] [facility], [address] [place] [address] Svetlana Olguin PA [address] [place] [address] 08/14/2025 1:30 PM EST Office Visit [facility] [address] [place] [address] 10/03/2025 2:40 PM EST Office Visit [facility]eral Met[facility] [address] [facility], [address] [place] [address] Alejandra Camacho MD [address] [facility] [address] [place] [address] 01/26/2026 11:00 AM EDT Office Visit [facility] [address] [place] [address] Luis Olivares MD [address] [place] [address] documented as of this [...] as of this encounter Care Teams Physician Gynecologist Relationship Specialty Start Date End Date Heladio Palm MD [address] [place] [address] PCP - General Internal Medicine 05/02/22 documented as of this encounter
--- OUTSIDE RECORDS SUMMARY | 2025-06-28 17:02 | XMS_ITS | Encounter Summary ---
Author Organization [facility] Address [address] [place] [address] Care Team Providers Care Director Of Curriculum Name Role Phone Dano Romero MD Primary Care Provider [phone] Reason for Visit * Reason Comments Med Refill Encounter Details Date Type Department Care Team (Late st Contact Info) Description 07/08/2019 Refill [facility] [address] [phone] Huber Grossman MD Social History Tobacco Use [...] when she went to go pick up and delivery driver her refill that she was informed [...] of this encounter Care Teams Director Of Curriculum Relationship Specialty Start Date End Date Dano Romero MD [address] [place] [address] PCP - General Internal Medicine 09/29/19 documented as of this encounter
--- OUTSIDE RECORDS SUMMARY | 2025-06-28 17:02 | XMS_ITS | Encounter Summary ---
Author Organization Healthcare Address [address] [place] [address] Care Team Providers Care Pacu Nurse Name Role Phone Heladio Palm MD Primary Care Provider + [phone] Encounter Details Date Type Department Care Team [...] EST Appointment [facility] [address] [place] [address] 07/26/2025 4:00 PM EST Office Visit [facility] [place] [address] [facility], [address] [place] [id number] Svetlana Olguin PA [address] [place] [address] 08/14/2025 1:30 PM EST Office Visit [facility] [address] [place] [address] 10/03/2025 2:40 PM EST Office [facility] Nephrology, Bone & Mineral Metabolism [address] [facility], [address] [place] [address] Alejandra Camacho MD [address] [facility] [address] [place] [address] 01/26/2026 11:00 AM EDT Office Visit [facility] [address] [place] [address] Luis Olivares MD [address] [facility] [address] [place] [address] documented as of this encounter [...] documented as of this encounter Care Teams Pacu Nurse Relationship Specialty Start Date End Date Heladio Palm MD [address] [place] [address] PCP - General Internal Medicine 05/02/22 documented as of this encounter
--- OUTSIDE RECORDS SUMMARY | 2025-06-28 17:02 | XMS_ITS | Encounter Summary ---
[facility] Organization [facility] [address] [place] [address] Care Team Providers Care Boiler Maker Name Role Phone Dano Romero MD Primary Care Provider [phone] Encounter Details Date Type Department Care Team (Late st Contact Info) Description 08/01/2019 Telephone [facility] [address] [place] [address] Huber Grossman MD Social History Tobacco [...] documented as of this encounter Care Teams Boiler Maker Relationship Specialty Start Date End Date Dano Romero MD [address] [place] [id number] PCP - General Internal Medicine 09/29/19 documented as of this encounter
--- OUTSIDE RECORDS SUMMARY | 2025-06-28 17:03 | XMS_ITS | Encounter Summary ---
Author Organization Healthcare Address [address] [place] [address] Care Team Providers Care Set Up Mechanic Automatic Line Name Role Phone Heladio Palm MD Primary Care Provider + [phone] Encounter Details Date Type Department Care Team (Latest Contact Info) Description 06/05/2025 Travel Social History Tobacco Use Types Packs/Day [...] EST Appointment [facility] [address] [place] [address] 07/26/2025 4:00 PM EST Office Visit [facility] [place] [address] [facility], [address] [place] [phone] Svetlana Olguin PA [address] [place] [address] 08/14/2025 1:30 PM EST Office Visit [facility] [address] [place] [address] 10/03/2025 2:40 PM EST Office Visit [facility] Nephrology, Bone & Mineral Metabolism [address] [facility], [address] [place] [address] Alejandra Camacho MD [address] [facility] [address] [place] [address] 01/26/2026 11:00 AM EDT Office Visit [facility] [address] [place] [address] Luis Olivares MD 110 [facility] [address] [place] [address] documented as of this encounter Visit Diagnoses Not on filedocumented in this encounter Additional Health Concerns Infection Onset Date Last Indicated Resolved Time MRSA Comment:Added from external infection. Source: [facility]. 09/07/2019 Assessment Noted Time PHQ-9 Depression Total Score: 0 04/24/20 25 1:50 PM EDT A fall risk assessment has been complete d for the patient 06/05/2025 4:07 PM EDT A Body Mass Index follow-up plan has been documented for the patient 06/08/2025 11:44 AM EDT documented as of this encounter Care Teams Set Up Mechanic Automatic Line Relationship Specialty Start Date End Date Heladio Palm MD [address] [place] [address] PCP - General Internal Medicine 05/02/22 documented as of this encounter
--- OUTSIDE RECORDS SUMMARY | 2025-06-28 17:03 | XMS_ITS | Encounter Summary ---
Author Organization Healthcare Address [address] [place] [address] Care Team Providers Care Hearing Aid Dispenser Name Role Phone Heladio Palm MD Primary Care Provider + [phone] Encounter Details Date Type Department Care Team ([facility] Contact Info) Description 05/25/2025 Telephone [facility] Nephrology, Bone & Mineral Metabolism [address] [facility], [address] [place] [address] Lashonda Willaim, SOFTWARE TEAM LEADER GS - 7 MAIN MEDICAL-SURGICAL Social History [...] 05/25/25 CALLED PT WANTED LABS FAXED TO [facility] .ar} documented in this encounter Plan of Treatment Upcoming Encounters Date Type Department Care Team (Late st Contact Info) Description 07/19/2025 1:20 PM EST Appointment [facility] Radiology [address] [place] [address] 07/26/2025 4:00 PM EST Office Visit [facility] [place] [address] [facility], [address] [place] [address] Svetlana Olguin PA [address] [place] [address] 08/14/2025 1:30 PM EST Office Visit [facility] [address] [place] [address] 10/03/2025 2:40 PM EST Office Visit [facility] [place] Nephrology, Bone & Mineral Metabolism [address] [facility], [address] [place] [address] Alejandra Camacho MD [address] [facility] [address] [place] [address] 01/26/2026 11:00 AM EDT Office Visit [facility] [address] [place] [address] Luis Olivares MD [address] [address] documented as of this encounter [...] documented as of this encounter Care Teams Hearing Aid Dispenser Relationship Specialty Start Date End Date Heladio Palm MD [address] [place] [address] PCP - General Internal Medicine 05/02/22 documented as of this encounter
--- OUTSIDE RECORDS SUMMARY | 2025-06-28 17:03 | XMS_ITS | Encounter Summary ---
Author Organization Healthcare Address [address] [place] [address] Care Team Providers Care Research Asst Name Role Phone Heladio Palm MD Primary Care Provider + [phone] Encounter Details Date Type Department Care Team [...] EST Appointment [facility] Rad[facility] [address] [place] [address] 07/26/2025 4:00 PM EST Office Visit [facility] [place] [address] [facility], [address] [place] [phone] Svetlana Olguin PA [address] [place] [address] 08/14/2025 1:30 PM EST Office Visit [facility] [address] [place] [address] 10/03/2025 2:40 PM EST Office Visit [facility] Nephrology, Bone & Mineral Metabolism [address] [facility], [address] [place] [address] Alejandra Camacho MD [address] [facility] [address] [place] [address] 01/26/2026 11:00 AM EDT Office Visit [facility] [address] [place] [address] Luis Olivares MD [address] [facility] [address] [place] [address] documented as of this encounter Visit Diagnoses Not on filedocumented in this encounter Additional Health Concerns Infection Onset Date Last Indicated Resolved Time MRSA Comment:Added from external infection. Source: [facility]. 09/07/2019 Assessment Noted Time PHQ-9 Depression Total Score: 0 04/24/20 25 1:50 PM EDT A fall risk assessment has been complete d for the patient 04/24/2025 1:50 PM EDT A Body Mass Index follow-up plan has been documented for the patient 05/30/2025 3:57 PM EDT documented as of this encounter Care Teams Research Asst Relationship Specialty Start Date End Date Heladio Palm MD [address] [place], [place] [address] PCP - General Internal Medicine 05/02/22 documented as of this encounter
--- OUTSIDE RECORDS SUMMARY | 2025-06-28 17:03 | XMS_ITS | Patient Health Record ---
Author Organization [facility] Address [address] [place] [address] Care Team Providers Care Risk Management Internship Name Role Phone Heladio Palm Primary Care Provider [phone] Migration, Provider Unavailable Unavailable Allergies Allergen (clinical [...] date:05/26/2025 09:39:46 AM Interpretation: Performing Lab:CB, [facility] Mrhn7485 [facility], [facility] CenterXdqxBC[address] Brady Brown Notes/Report: NON-FASTING; NON-FASTING; NON-FASTING HEMOGLOBIN [...] (622) Reviewed date:05/26/2025 09:39:45 AM Interpretation: Performing Lab:CB, [facility] [address], [place] ClinicQbaiID[address] Brady Brown Notes/Report: NON-FASTING; NON-FASTING; NON-FASTING MAGNESIUM 1.6 1.5-2.5 mg/dL BASIC METABOLIC PANEL (52612 ) Reviewed date:05/26/2025 09:39:45 AM Interpretation: Performing Lab:LV, [facility] [address], [place] ClinicEfklNK[address] Brady Brown Notes/Report: NON-FASTING; NON-FASTING; NON-FASTING GLUCOSE [...] 30 20-32 mmol/L CALCIUM 10.3 8.6-10.4 mg/dL M-Urine Culture Reviewed date:02/08/2025 01:59:16 PM Interpretation: Performing Lab: Notes/Report: CUU ORGANISM 1: Escherichia coli RX CA: R- Resistant S- Susceptible I- Intermediate * Not on [facility] CUU [place] Count 50,000 - 60,000 RX CA: R- Resistant S- Susceptible I- Intermediate * Not on [facility] CUU RX CA: R- Resistant S- Susceptible I- Intermediate * Not on [facility] CUU RX CA: R- Resistant S- Susceptible I- Intermediate * Not on [facility] CUU Escherichia coli: REACTION RX CA: R- Resistant S- Susceptible I- Intermediate * Not on [facility] CUU Amikacin <=8 S RX CA: R- Resistant S- Susceptible I- Intermediate * Not on [facility] CUU Ampicillin >16 R RX CA: R- Resistant S- Susceptible I- Intermediate * Not on [facility] CUU Aztreonam <=2 S RX CA: R- Resistant S- Susceptible I- Intermediate * [facility] Cefe[facility]1 S RX CA: R- Resistant S- Susceptible I- Intermediate * [facility] Ceftaz[facility] <=2 S RX CA: R- Resistant S- Susceptible I- Intermediate * [facility] Ceftri[facility] 4 R RX CA: R- Resistant S- Susceptible I- Intermediate * [facility] Ciprofloxacin <=0.25 S RX CA: R- Resistant S- Susceptible I- Intermediate * [facility] Ertapenem <=0.25 S RX CA: R- Resistant S- Susceptible I- Intermediate * [facility] Gentamicin <=2 S RX CA: R- Resistant S- Susceptible I- Intermediate * Not on [facility] Levofloxacin <=0.5 S RX CA: R- Resistant S- Susceptible I- Intermediate * [facility] Meropenem <=0.5 S RX CA: R- Resistant S- Susceptible I- Intermediate * [facility] Nitrofurantoin <=16 S RX CA: R- Resistant S- Susceptible I- Intermediate * [facility] Tetracycline <=2 S RX CA: R- Resistant S- Susceptible I- Intermediate * [facility] Tobramycin <=2 S RX CA: R- Resistant S- Susceptible I- Intermediate * [facility] Trimethoprim/Sulfame th oxazole >2/38 R RX CA: R- Resistant S- Susceptible I- Intermediate * [facility] Piperacillin/Tazobac ta m <=2/4 S RX CA: R- Resistant S- Susceptible I- Intermediate * Not on [facility] CUU RX CA: R- Resistant S- Susceptible I- Intermediate * Not on [facility] M-1,25-Dihydroxy,Vitamin D b y MS Reviewed date:02/07/2025 07:26:01 PM Interpretation: Performing Lab: Notes/Report: [id number] 26 . pg/mL Reference Range: Adults: 21 - 65 [id number] <10 . pg/mL This test was developed and its performance characteristics determined by [facility]. It has not been cleared or approved by the Food and Drug Administration. [id number] 24 . pg/mL This test was developed and its performance characteristics determined by [facility]. It has not been cleared or approved by the Food and Drug Administration. Performed at: [facility] [address] [place] [address] [phone] Manager Private: Jerson Cameron MD, Phone: [phone] MRI : Head, Without Contrast Reviewed date:12/06/2024 12:21:22 PM Interpretation: Performing Lab: Notes/Report: H-MALBCREA Reviewed date:02/04/2025 10:26:08 AM Interpretation: Performing Lab: Notes/Report: Units: mg/g creat Normal: 0 - 29 Moderately Increased: 30 - 300 Severely Increased: >300 UCREAT 76 Not Estab. mg/dL Random urine reference range not established. 24 hour urine samples recommended. MICROALB 6.500 0-16.7 mg/L MALBCREAT 8.5 H-IPTH Reviewed date:02/04/2025 10:26:08 AM Interpretation: Performing Lab: Notes/Report: PTHINT 5.7 7.5-53.5 pg/mL M-Renal Function Panel Reviewed date:02/04/2025 10:26:09 AM [...] K/mm3 RDW-SD 44.4 NRBC% 0 NRBC# 0 THYROID PANEL WITH TSH (7444 ) Reviewed date:03/14/2025 04:29:00 PM Interpretation: Performing Lab:LV QPID [facility]TechFaithe[address] [employer] SaranasPernBJ[address] Brady Brown Notes/Report: NON-FASTING; NON-FASTING; NON-FASTING; NON-FASTING; NON-FAST FASTING:YES FASTING: YES T3 UPTAKE 31 22-35 % T4 (THYROXINE), TOTAL 7.8 5.1-11.9 mcg/dL FREE T4 INDEX (T7) 2.4 1.4-3.8 TSH 1.65 0.40-4.50 mIU/L LIPID PANEL, STANDARD (7600) Reviewed date:03/14/2025 04:29:00 PM Interpretation: Performing Lab:LV [facility]he[address] [employer] [facility] CenterHahjMQ[address] Brady Brown Notes/Report: NON-FASTING; NON-FASTING; NON-FASTING; NON-FASTING; [...] LDL-C. Aryan SS et al. CHRISTINA. 2013;310(19): 2040-9162 (http://education.Celtro/faq/FAQ 164) CHOL/HDLC RATIO 4.2 <5.0 (calc) NON HDL CHOLESTEROL 123 <130 mg/dL (calc) For patients with diabetes plus 1 major ASCVD risk factor, treating to a non-HDL-C goal of <100 mg/dL (LDL-C of <70 mg/dL) is considered a therapeutic option. COMPREHENSIVE METABOLIC PANE Soraida (18459) Reviewed date:03/14/2025 04:29:00 PM Interpretation: Performing Lab:CB, [facility] Oqqj1429 [facility] [place] UaqoOS[address] Brady Brown Notes/Report: NON-FASTING; NON-FASTING; NON-FASTING; NON-FASTING; [...] Reviewed date:03/14/2025 04:29:01 PM Interpretation: Performing Lab:LV, [facility] [address], TechFaithHgtoZF[address] Brady Brown Notes/Report: NON-FASTING; NON-FASTING; NON-FASTING; NON-FASTING; [...] MPV 9.5 7.5-12.5 fL ABSOLUTE NEUTROPHILS 6720 2519-1341 cells/uL ABSOLUTE LYMPHOCYTES 2100 850-3900 cells/uL ABSOLUTE MONOCYTES 660 200-950 cells/uL ABSOLUTE EOSINOPHILS 460 15-500 cells/uL ABSOLUTE BASOPHILS 60 0-200 cells/uL NEUTROPHILS 67.2 LYMPHOCYTES 21.0 MONOCYTES 6.6 EOSINOPHILS 4.6 BASOPHILS 0.6 HEMOGLOBIN A1c (496) Reviewed date:03/14/2025 04:29:01 PM Interpretation: Performing Lab:LV, [facility] [address], TechFaithSykeDW[address] Brady Brown Notes/Report: NON-FASTING; NON-FASTING; NON-FASTING; NON-FASTING; [...] for children. VITAMIN B12/FOLATE, SERUM PA REGIS (4914) Reviewed date:03/14/2025 04:29:01 PM Interpretation: Performing Lab:LV A[address]ae[address] [employer], TechFaithVjlsKG[address] Brady Brown Notes/Report: NON-FASTING; NON-FASTING; NON-FASTING; NON-FASTING; NON-FAST FASTING:YES FASTING: YES VITAMIN B12 979 443-5532 pg/mL Please Note: Although the reference range [...] <3.4 Borderline: 3.4-5.4 Normal: >5.4 VITAMIN D,25-OH,TOTAL,IA (83 033) Reviewed date:03/14/2025 04:29:01 PM Interpretation: Performing Lab:LV [facility] [address], TechFaithFubkYR[address] Brady Brown Notes/Report: NON-FASTING; NON-FASTING; NON-FASTING; NON-FASTING; NON-FAST FASTING:YES FASTING: YES VITAMIN D,25-OH,TOTAL,IA 46 30-100 ng/mL Vitamin D Status 25-OH Vitamin D: Deficiency: <20 ng/mL Insufficiency: 20 - 29 ng/mL Optimal: > or = 30 ng/mL For 25-OH Vitamin D testing on patients on D2-supplementation and patients for whom quantitation of D2 and D3 fractions is required, the [facility]() 25-OH VIT D, (D2,D3), LC/MS/MS is recommended: order code 95796 (patients >2yrs). See Note 1 Note 1 For additional information, please refer to http://education.[employer]/faq/FAQ1 99 (This link is being provided for informational/ educational purposes only.) PTH, INTACT WITHOUT CALCIUM (25085) Reviewed date:03/14/2025 04:29:01 PM Interpretation: Performing Lab:LV [facility] Ynwk8275 [facility], [place] MndoXZ[address] Brady Brown Notes/Report: NON-FASTING PARATHYROID HORMONE, INTACT [...] brain, no contrast and carotid Doppler at [facility] for morning headaches with visual disturbance Diagnosis 1 Nonintractable episo dic headache, unspecified headache type (R51.9) Referral Organization [facility] FRANCO MANUEL Referring Provider First Name Heladio Referring Provider Last Name Arpita Referring Provider Speciality Internal [facility] Notes Carmen Harvey 07/2025 04:02:30 PM > faxed to [facility] and they will call her Referral Priority Routine Reason Labral tear, loose b silas in shoulder joint and multiple rotator cuff tears, see Dr. Ace Royal at Diagnosis 1 Traumatic tear of ri ght rotator cuff, unspecified tear extent, initial encounter (S46.011A) Referral Organization [facility] RUPA MAR Referring Provider First Name Heladio Referring Provider Last Name Arpita Referring Provider Speciality Internal [facility] General Notes Carmen Harvey 08/2025 02:53:47 PM > faxed and they will call her to schedule Referral Priority Routine Reason DExa scan at [facility] Diagnosis 1 Chronic kidney disea se, stage 3b (N18.32) Referral Organization [facility] PED MAR Referring Provider First Name Heladio Referring Provider Last Name Arpita Referring Provider Speciality Internal M edicine Referred Organization [facility] Referred Address [address] [facility] 36 [facility], [place],[address],[place] Referred Provider Specialty Diagnostic R adiology Referral [...] once a day; Duration: 30 day(s) Active Cephalexin 500 MG 1 capsule Orally 3 times a day; Duration: 3 days 06/08/2025 Active Acetaminophen 500 MG 2 tab(s) orally every 6 hours prn Active Ozempic (0.25 or 0.5 MG/DOSE) 2 MG/3ML 0.25mg Subcutaneous weekly; Duration: 90 days has not started 03/30/2025 Active Venlafaxine HCl 100 MG TAKE 1 TABLET BY MOUTH EVERY DAY FOR 90 DAYS; Duration: 90 Active Carvedilol 12.5 MG 1 [...] Status Risk Notes Problem Diabetic renal disease (615861151) Type 2 diabetes mellitus with diabetic chronic kidney disease (E11.22) Active confirmed Problem Hypomagnesemia (202145349) Hypomagnesemia (E83.42) Active confirmed Problem Paroxysmal atrial fibrillation (112510466) Paroxysmal atrial fibrillation (I48.0) Active confirmed Problem Hypothyroid (14215500) Hypothyroid (E03.9) Active confirmed Problem Atrial fibrillation (disorder) (05927649) Afib (I48.91) Active confirmed Problem Morbid obesity (844539243) Morbid obesity (E66.01) Active confirmed Problem Neuropathy (530612814) Neuropathy (G62.9) Active confirmed Problem Essential hypertension (99672537) Essential hypertension (I10) Active confirmed Problem Type 2 diabetes mellitus (55150603) Type 2 diabetes mellitus (E11.9) Active confirmed Problem Atherosclerosis of coronary artery without angina pectoris (440453974176414) Atherosclerosis of [place] coronary artery of [place] heart without angina pectoris (I25.10) Active confirmed Problem Obstructive sleep apnea (83195551) Obstructive sleep apnea (G47.33) Active confirmed Problem Uncomplicated moderate persistent asthma (116430483) Moderate persistent asthma without complication (J45.40) Active confirmed Problem Acute depression (649302787) Acute depression (F32.9) Active confirmed Problem Chronic renal failure syndrome (00287443) Chronic kidney disease, unspecified CKD stage (N18.9) Active confirmed Problem Chronic hypercapnic respiratory failure (435933648) Hypercapnic respiratory failure, chronic (J96.12) Active confirmed Problem Chronic kidney disease stage 3B (disorder) (427139990) Chronic kidney disease, stage 3b (N18.32) Active confirmed Vital Signs Heart Rate 72 /min 05/25/2025 Temperature 98 degrees Fahrenheit 05/25/2025 Blood pressure diastolic 62 mm Hg 05/25/2025 Height 5 ft 3 in in 05/25/2025 Blood pressure systolic 126 mm Hg 05/25/2025 Weight 234 lbs 05/25/2025 BMI 41.45 kg/m2 05/25/2025 Encounters Encounter Location Date Provider Diagnosis [facility] [address] [place] [address] 12/10/2024 Provider Migration [facility] [address] [address] 07/19/2024 Heladio Palm Type 2 diabetes mellitus with diabetic chronic kidney disease E11.22 ; Chronic kidney disease, stage 3b N18.32 ; Immunization(s) administered Z23 ; Paroxysmal atrial fibrillation I48.0 and Essential hypertension I10 [address] [address] 11/15/2024 Heladio Palm Nonintractable episo dic headache, unspecified headache type R51.9 and Traumatic tear of right rotator cuff, unspecified tear extent, initial encounter S46.011A [facility] [address] [address] 03/02/2025 Heladio Palm Chronic kidney disea se, stage 3b N18.32 ; Type 2 diabetes mellitus with diabetic chronic kidney disease E11.22 ; Paroxysmal atrial fibrillation I48.0 ; Atherosclerosis of [place] coronary artery of [place] heart without angina pectoris I25.10 ; Hypothyroid E03.9 ; Obstructive sleep apnea G47.33 ; Encounter for immunization Z23 and Routine medical exam Z00.00 [facility] [address] [address] 03/30/2025 Heladio Palm Dental abscess K04.7 ; Type 2 diabetes mellitus with diabetic chronic kidney disease E11.22 and Hospital discharge follow-up Z09 [facility] [address] [place] [address] 05/25/2025 Heladio Besson Type 2 diabetes mellitus with diabetic chronic kidney disease E11.22 ; Chronic kidney disease, stage 3b N18.32 ; Osteoporosis screening Z13.820 ; Immunization(s) administered Z23 and Hypomagnesemia E83.42 [facility] [address] [place] [address] 09/22/2024 Heladio Besson Type 2 diabetes mellitus with diabetic chronic kidney disease E11.22 [facility] [address] [place] [address] 10/04/2024 Heladio Besson [facility] [address] [place] [address] 12/09/2024 Heladio Besson [facility] [address] [place] [address] 02/08/2025 Heladio Besson [facility] [address] [place] [address] 03/20/2025 Heladio Besson [facility] [address] [place] [address] 03/21/2025 Heladio Besson [facility] [address] [place] [address] 03/22/2025 Heladio Besson [facility] [address] [place] [address] 03/22/2025 Heladio Besson [facility] [address] [place] [address] 03/22/2025 Heladio Besson [facility] [address] [place] [address] 04/12/2025 Heladio Besson [facility] [address] [place] [address] 04/19/2025 Heladio Besson [facility] [address] [place] [address] 06/02/2025 Heladio Besson [facility] [address] [place] [address] 06/05/2025 Heladio Besson [address] [address] 06/08/2025 Heladio Rojasfatou Assessments Encounter Date Diagnosis (ICD Code) Assessment Notes Treatment Notes Treatment Clinical Notes Section Notes 07/19/2024 Chronic kidney disease, stage 3b (ICD-10 - N18.32) Continues to follow with nephrology and will see them next month. Continue Farxiri. 09/22/2024 Type 2 diabetes mellitus with diabetic [...] to keep and attend her appointment with Md Senior Research Scientist on Jun 06. 05/25/2025 Osteoporosis screening (ICD-10 [...] evidence of recurrence. z 03/02/2025 Atherosclerosis of [place] coronary artery of [place] heart without angina pectoris (ICD-10 - I25.10) No current cardiac symptoms z 07/19/2024 Paroxysmal atrial fibrillation (ICD-10 - I48.0) Follows with cardiology, still considering Watchman device. Continue Carvedilol. 05/25/2025 Immunization(s) administered (ICD-10 - Z23) Flu [...] PANEL, STANDARD (7600) 11/18/2023 COMPREHENSIVE METABOLIC PANEL (82013) BASIC METABOLIC PANEL (63489) 01/29/2024 CBC (INCLUDES DIFF/PLT) (6399) 4 HEMOGLOBIN A1c (496) 11/18/2023 TSH (899) 11/18/2023 DEXA VERTEBRAL FX ASSESS 05/25/2025 Insurance Providers Payer Name Payer Address Payer Phone Subscriber Number Group Number Insured Name Patient Relationship to Insured Coverage Start Date Coverage End Date [place] [address] [place] [place] [address] [id number] Kiana mac Mirtha Self - patient is the insured [employer] [address] [address] [place] [address] [id number] Kiana mac Mirtha Self - patient is the insured Medical [...] EGD 2018 stent Hospitalization History Reason Date(Month/Year) [facility] - 03/19- - left kidney- rupture- renal ablation 10/2019 Respiratory failure- [facility] the n transferred to - then to [facility] for rehab 08/2019
--- OUTSIDE RECORDS SUMMARY | 2025-06-28 17:03 | XMS_ITS | Encounter Summary ---
Author Organization Healthcare Address [address] [place] [address] Care Team Providers Care Horseback Riding Instructor Name Role Phone Heladio Palm MD Primary Care Provider + [phone] Encounter Details Date Type Department Care Team [...] EST Appointment [facility] [address] [place] [address] 07/26/2025 4:00 PM EST Office Visit [facility] [place] [address] [facility], [address] [place] [address] Svetlana Olguin PA [address] [place] [address] 08/14/2025 1:30 PM EST Office Visit [facility] [address] [place] [address] 10/03/2025 2:40 PM EST Office Visit [facility] [address] [facility], [address] [place] [address] Alejandra Camacho MD [address] [facility] [address] [place] [address] 01/26/2026 11:00 AM EDT Office Visit [facility] [address] [place] [address] Luis Olivares MD [address] [address] documented as of this encounter Visit Diagnoses Not on filedocumented in this encounter Additional Health Concerns Infection Onset Date Last Indicated Resolved Time MRSA Comment:Added from external infection. Source: [facility]. 09/07/2019 Assessment Noted Time PHQ-9 Depression Total Score: 0 04/24/20 25 1:50 PM EDT A fall risk assessment has been complete d for the patient 04/24/2025 1:50 PM EDT A Body Mass Index follow-up plan has been documented for the patient 05/30/2025 3:57 PM EDT documented as of this encounter Care Teams Horseback Riding Instructor Relationship Specialty Start Date End Date Heladio Palm MD [address] [place] [address] PCP - General Internal Medicine 05/02/22 documented as of this encounter
--- OUTSIDE RECORDS SUMMARY | 2025-06-28 17:03 | XMS_ITS | Encounter Summary ---
Author Organization Healthcare Address [address] [place] [address] Care Team Providers Care Second Facing Baster Name Role Phone Heladio Palm MD Primary Care Provider + [phone] Encounter Details Date Type Department Care Team ([facility] Contact Info) Description 06/01/2025 Telephone [facility] [address] [facility] [address] [facility], [address] [place] [address] Lashonda William, PRINTING MACHINE MECHANIC GS - 7 MAIN MEDICAL-SURGICAL Social History [...] EST Appointment [facility] [address] [place] [address] 07/26/2025 4:00 PM EST Office Visit [facility] [place] [address] [facility], [address] [place] [address] Svetlana Olguin PA [address] [place] [address] 08/14/2025 1:30 PM EST Office Visit [facility] [address] [place] [address] 10/03/2025 2:40 PM EST Office Visit [facility] [place] [facility] [address] [facility] [address] [facility], [address] [place] [address] Alejandra Camacho MD [address] [facility] [address] [place] [address] 01/26/2026 11:00 AM EDT Office Visit [facility] [address] [place] [address] Luis Olivares MD 110 [facility] [address] [place] [address] documented as of this encounter Visit Diagnoses Not on filedocumented in this encounter Additional Health Concerns Infection Onset Date Last Indicated Resolved Time MRSA Comment:Added from external infection. Source: [facility]. 09/07/2019 Assessment Noted Time PHQ-9 Depression Total Score: 0 04/24/20 25 1:50 PM EDT A fall risk assessment has been complete d for the patient 04/24/2025 1:50 PM EDT A Body Mass Index follow-up plan has been documented for the patient 05/30/2025 3:57 PM EDT documented as of this encounter Care Teams Second Facing Baster Relationship Specialty Start Date End Date Heladio Palm MD [address] [place] [address] PCP - General Internal Medicine 05/02/22 documented as of this encounter
--- OUTSIDE RECORDS SUMMARY | 2025-06-28 17:04 | XMS_ITS | Clinical Summary ---
Author Organization [facility] Address [address] [place] [address] Care Team Providers Care Whiting Machine Operator Name Role Phone Heladio Palm MD Primary Care Provider + [phone] Allergies Active Allergy Reactions Criticality Noted Date [...] 1 tablet by mouth daily. 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 3 tablet 1 5 05/30/20 25 Discontinu ed(Stop Taking at Discharge) diphenhydrAMINE (Benadryl) 50 MG tablet Take 1 tablet by mouth 1 hour before radiology study. 3 tablet 5 05/30/20 25 Discontinu ed(Stop Taking at Discharge) Active Problems Problem Noted Date Diagnosed Date [...] Encounters Date Type Department Care Team Description 06/05/2025 4:00 PM EDT Office Visit [facility] Nephrology, Bone & Mineral Metabolism [address] [facility], [address] [place] [address] Alejandra Camacho MD Hyperparathyroidism, unspecified ([facility]/HCC) (Primary Dx); Stage 3 chronic kidney disease, unspecified whether stage 3a or 3b CKD ([facility]); Type 2 diabetes mellitus with other specified complication, without long-term current use of insulin ([facility]); Essential hypertension 06/05/2025 Travel 06/01/2025 Travel 06/01/2025 Telephone [facility] Nephrology, Bone & Mineral Metabolism [address] [facility], [address] [place] [address] Lashonda William, PIN PULLER 05/30/2025 9:15 AM EDT - 05/30/2025 10:55 AM EDT Surgery Cardiac Lead Process Engineer [address] [place] [address] Bryan Allen MD Left atrial appendage closure (transvenous) [47165 (CPT )] 05/30/2025 8:00 AM EDT - 05/30/2025 4:43 PM EDT Hospital Encounter Cardiac Lead Process Engineer [address] [place] [address] Bryan Allen MD Paroxysmal atrial fibrillation ([facility]) Discharge Disposition: Home or Self Care 05/30/2025 Travel 05/25/2025 Telephone [facility] Nephrology, Bone & Mineral Metabolism [address] [facility], [address] [place] [address] Lashonda William, PIN PULLER 05/23/2025 Travel 05/03/2025 Telephone [facility] Nephrology, Bone & Mineral Metabolism [address] [facility], [address] [place] [address] Alejandra Camacho MD 04/27/2025 Episode Changes [facility] [place] [address] [facility]. [address] [place] [address] Nola Sher 04/24/2025 2:10 PM EDT Office Visit [facility] [address] [facility]. [address] [place] [address] Bryan Allen MD Paroxysmal atrial fibrillation ([facility]/HCC) (Primary Dx) 04/24/2025 Travel 04/23/2025 Travel 04/14/2025 Telephone [facility] [place] [address] [place] [address] from Last 3 Months Immunizations Immunization Administration [...] F) 06/05/2025 3:57 PM EDT Respiratory Rate 17 05/30/2025 4:00 PM EDT Oxygen Saturation 93% 06/05/2025 3:57 PM EDT Inhaled Oxygen Concentration - - Weight 106 kg (232 lb 12.9 oz) 06/05/2025 3:57 P M EDT Height 154.9 cm (5' 1 ) 06/05/2025 3:57 PM EDT Body Mass Index 43.99 06/05/2025 3:57 PM EDT Plan of Treatment Upcoming Encounters Date Type Department Care Team (Late st Contact Info) Description 07/19/2025 1:20 PM EST Appointment [facility] [address] [place] [address] 07/26/2025 4:00 PM EST Office Visit [facility] [place] [address] [facility], [address] [place] [address] Svetlana Olguin PA [address] [place] [address] 08/14/2025 1:30 PM EST Office Visit [facility] [address] [place] [address] 10/03/2025 2:40 PM EST Office Visit [facility] Nephrology, Bone & Mineral Metabolism [address] [facility], [address] [place] [address] Alejandra Camacho MD [address] [facility] [address] [place] [address] 01/26/2026 11:00 AM EDT Office Visit [facility] [address] [place] [address] Luis Olivares MD [address] [address] Health Maintenance Due Date Last [...] Vaccines (3 of 3) 06/14/2024 04/19/2024, 04/23/2017 [id number]-52 Vaccine (4 - 2024- season) 2025 06/27/2021, 11/01/2020, 10/04/2020 [facility]-Depression Screening 04/24/2026 04/24/2025, 04/07 [facility]-DTaP,Tdap,and Td Vaccines (2 - Td or Tdap) 03/02/2035 03/02/2025 [facility]-Hepatitis C Screening Completed 12/13/2019, [facility]-Breast Cancer Screening Discontinued 11/28/2021, 11/28/2021, 11/30/2018, Additional history exists [facility]-RSV Vaccine: 60+ Years or Completed 04/19/2024 [facility]-Influenza Vaccine Completed 05/25/2025 , 07/19/2024, 07/03/2022, Additional history exists [facility]-Obesity Intervention Completed 025, 04/24/2025, 04/24/2025, Additional history exists HPV Vaccines Aged Out [...] this topic Medical Devices Implanted Type Area Model Maker Fiberglass Device Identifier Shelf Expiration Date Model / Serial / Lot Watchman Fxd Curve Dble 20mm - [id number] Implanted:Qty : 1 on 05/30/2025 by Bryan Allen MD at [facility] [id number] 03/06/2028 [id number] / / [id number] Device Watchman Flx Pro Shaunna Closure 24mm - [id number] Implanted:Qty : 1 on 05/30/2025 by Bryan Allen MD at [facility] [id number] 02/23/2028 [id number] / / [id number] Device Watchman Flx Pro Procedure - [id number] - [id number] Implanted:Qty : 1 on 05/30/2025 by Bryan Allen MD at [facility] [id number] 02/23/2028 [id number] / [id number] / Procedures Procedure Name Priority Date/Time Associated [...] captured. The probe was inserted by the oncology nurse. There was no probe insertion difficulty. Moderate [...] is no recent study available for direct [id number] comparison. us Bryan Allen MD CV ECHO PROCEDURES Final R esult * ECHO, ADULT TRANSTHORACIC LIMITED (05/30/2025 3:25 PM EDT) BSA 2.02 m2 CASSIDY [employer] Height 154.9 [employer] Weight 105.7 CASSIDY ISCV Anatomical Region Laterality [...] Procedure Details Background Information: The patient is [id number] woman with atrial fibrillation, hypertension, diabetes mellitus, [...] was obtained: 1) Right common femoral vein: 8-Dutch short Terumo sheath (preclose deployed) Antibiotics were given. Heparin for ACT>250 was given. The 8-Dutch sheath was exchanged for an 8.5-Dutch, 63 cm, 45-degree curve VersaCross sheath. The [...] removed over the pigtail wire. The Watchman 14-Dutch double curve sheath was then advanced over the wire into the left atrium. A 6-Dutch Pigtail catheter was advanced through the sheath [...] seconds 06/23/2025 2:08 PM EDT [facility] Hot Plate Plywood Press Feeder ID Josephine Mathew 06/23/2025 2:08 PM EDT HEALTHCARE LAB ACT Device ID [id number] 06/23/2025 2:08 PM EDT [facility] Comment 06/23/2025 2:08 PM EDT [facility] Comment: ACT performed by staff [...] 11:25 AM EDT 06/23/2025 2:08 PM EDT us Bryan Allen MD LAB POINT OF CARE TEST DOCKED DEVICE UNSOLICITED RESULTS Final Result Performing Organization Address City/State/[facility] Co de Phone Number HEALTHCARE LAB [address] LAB [address] [place] [address] * (ABNORMAL) POCT creatinine (05/30/2025 9:01 AM EDT) [facility] Creatinine, Point of Care 1.3(H) 0.6 - 1.1 mg/dL 05/30/2025 9:05 AM EDT HEALTHCARE LAB POCT eGFR 43 mL/min/1. 73m*2 05/30/2025 9:05 AM EDT [facility] Hot Plate Plywood Press Feeder ID Chey Joel 05/30/2025 9:05 AM EDT [facility] Device ID [id number] 05/30/2025 9:05 AM EDT HEALTHCARE [facility] Comment 05/30/2025 9:05 AM EDT [facility] Comment:Testing performed on i-STAT at the point of care. Reported eGFRcr in mL/min/1.73m2 is based the CKD-EPI 2020 equation that does not use a race coefficient. Blood Venous blood specimen / Unknown 05/30/2025 9:01 AM EDT 05/30/2025 9:05 AM EDT us Bryan Allen MD LAB POINT OF CARE TEST DOCKED DEVICE UNSOLICITED RESULTS Final Result [facility] [address] LAB [address] [place] [address] * Hemogram (CBC) (05/30/2025 8:57 AM EDT) WBC Count 8.97 3.70 - 10.30 10*3/uL LAB HEMATOLOGY METHOD 05/30/2025 9:19 AM EDT [facility] RBC Count 4.72 3.90 - 5.20 10*6/uL LAB HEMATOLOGY METHOD 05/30/2025 9:19 AM EDT [facility] HGB 14.4 11.2 - 15.7 g/dL LAB HEMATOLOGY METHOD 05/30/2025 9:19 AM EDT [facility] HCT 43.8 34.0 - 45.0 % LAB HEMATOLOGY METHOD 05/30/2025 9:19 AM EDT [facility] Platelet Count 249 155 - 369 10*3/uL LAB HEMATOLOGY METHOD 05/30/2025 9:19 AM EDT [facility] MCV 93 79 - 98 fL LAB HEMATOLOGY METHOD 05/30/2025 9:19 AM EDT [facility] MCH 30.5 26.0 - 32.0 pg LAB HEMATOLOGY METHOD 05/30/2025 9:19 AM EDT [facility] MCHC 32.9 30.7 - 35.5 g/dL LAB HEMATOLOGY METHOD 05/30/2025 9:19 AM EDT [facility] RDW 13.0 11.5 - 14.5 % LAB HEMATOLOGY METHOD 05/30/2025 9:19 AM EDT [facility] MPV 9.8 8.8 - 12.5 fL LAB HEMATOLOGY METHOD 05/30/2025 9:19 AM EDT [facility] nRBC 0.0 <=0.0 per 100 WBCs LAB HEMATOLOGY METHOD 05/30/2025 9:19 AM EDT [facility] Blood Venous blood specimen / Unknown Venipuncture / Unknown 05/30/2025 8:57 AM EDT 05/30/2025 9:11 AM EDT Jignesh GORDON LAB BLOOD ORDERABLES Final R esult Performing Organization Address City/[facility]/ZIP Co de Phone Number [facility] [address] [place] [address] * (ABNORMAL) Magnesium (05/30/2025 8:57 AM EDT) Magnesium, Plasma 1.8(L) 1.9 - 2.4 mg/dL 05/30/2025 9:37 AM EDT [facility] Blood Venous blood specimen / Unknown Venipuncture / Unknown 05/30/2025 8:57 AM EDT 05/30/2025 9:09 AM EDT Jignesh Olvera [place] LAB BLOOD ORDERABLES Final R esult Performing Organization Address [facility]/ZIP Co de Phone Number [facility] [address] [place] [address] * (ABNORMAL) Basic metabolic panel (05/30/2025 8:57 AM EDT) Glucose, Plasma 271(H) 74 - 99 mg/dL 05/30/2025 9:37 AM EDT [facility] BUN, Plasma 27(H) 8 - 23 mg/dL 05/30/2025 9:37 AM EDT [facility] Creatinine, Plasma 1.10 0.60 - 1.10 mg/dL 05/30/2025 9:37 AM EDT [facility] BUN/Creatinine Ratio 25 05/30/2025 9:37 AM EDT [facility] Sodium, Plasma 138 136 - 145 mmol/L 05/30/2025 9:37 AM EDT [facility] Potassium, Plasma 4.7 3.6 - 4.9 mmol/L 05/30/2025 9:37 AM EDT [facility] Comment:Hemolyzed, result ma y be falsely increased. Chloride, Plasma 102 97 - 107 mmol/L 05/30/2025 9:37 AM EDT [facility] CO2, Plasma 22 22 - 29 mmol/L 05/30/2025 9:37 AM EDT [facility] Anion Gap 14 6 - 16 mmol/L 05/30/2025 9:37 AM EDT [facility] Total Calcium, Plasma 9.8 8.9 - 10.2 mg/dL 05/30/2025 9:37 AM EDT [facility] eGFRcr 52.2 mL/min/1.7 3m*2 05/30/2025 9:37 AM EDT [facility] Comment:Reported eGFRcr in m L/min/1.73m2 is based the CKD-EPI 2020 equation that does not use a race coefficient. Blood Venous blood specimen / Unknown Venipuncture / Unknown 05/30/2025 8:57 AM EDT 05/30/2025 9:09 AM EDT Jignesh GORDON LAB BLOOD ORDERABLES Final R esult [facility] [address] [place] [address] * Hepatitis C Antibody (12/13/2019 6:01 PM [...] <6.0% Children and Adolescents <7.5% . Source: [place] [employer]. Standards of medical care in diabetes, 2017. Diabetes Care.2017:40 (suppl 1):S1-S135. . HbA1c assay performed by an ion-exchange chromatography method that is certified traceable to the DCCT. 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 Source: [facility]. 09/07/2019 Insurance MEDICARE [employer] Advance Directives * Full Code (Latest Code Status on File) Date Activated Date Inactivated Comments 05/30/2025 12:19 PM 05/30/2025 6:48 PM Question Answer Comments Patient has decision-making capacity? Yes Care Teams Whiting Machine Operator Relationship Specialty Start Date End Date Heladio Palm MD [address] [place] [address] PCP - General Internal Medicine 05/02/22
--- OUTSIDE RECORDS SUMMARY | 2025-06-28 17:05 | XMS_ITS | Encounter Summary ---
Author Organization Healthcare Address [address] [place] [address] Care Team Providers Care [employer] Dean Name Role Phone Heladio Palm MD Primary Care Provider + [phone] Encounter Details Date Type Department Care Team (Late st Contact Info) Description 04/14/2025 Telephone [facility] [place] [address] [place] [address] Social History Tobacco Use Types Packs/Day Years [...] get scheduled. I have requested records from [facility]. * Telephone Encounter - Nola Sher [...] getting a watchman placed, currently inpatient at [facility]? Best contact number: [phone] (mobile) Optimal time of day to reach [...] EST Appointment [facility] [address] [place] [address] 07/26/2025 4:00 PM EST Office Visit [facility] [place] [address] [facility], [address] [place] [address] Svetlana Olguin PA [address] [place] [address] 08/14/2025 1:30 PM EST Office Visit [facility] [address] [place] [address] 10/03/2025 2:40 PM EST Office Visit [facility] Nephrology, Bone & Mineral Metabolism [address] [facility], [address] [place] [address] Alejandra Camacho MD [address] [facility] [address] [place] [address] 01/26/2026 11:00 AM EDT Office Visit [facility] [address] [place] [address] Luis Olivares MD [address] [facility] [address] [place] [address] documented as of this encounter [...] documented as of this encounter Care Teams [employer] Dean Relationship Specialty Start Date End Date Heladio Palm MD [address] [place] [address] PCP - General Internal Medicine 05/02/22 documented as of this encounter
--- OUTSIDE RECORDS SUMMARY | 2025-06-28 17:05 | XMS_ITS | Clinical Summary ---
Author Organization [facility] Address [address] [place] [address] Care Team Providers Care Spinning Bath Person Name Role Phone Dano Romero MD Primary Care Provider [phone] Allergies Active Allergy Reactions Criticality Noted Date [...] (LIPITOR) 40 MG tablet 0 Active Biotin 39477 MCG tablet 1 Active carvedilol (COREG) 25 [...] Pneumococcal Vaccine 50+ (2 of 2 - PPSV23, PCV20, or PCV21) 07/22/2016 05/27/2016 ZOSTER VACCINE (2 of 3) 06/18/2017 04/23/2017 ANNUAL WELLNESS VISIT 02/24/2019 02/24/2018 DIABETIC EYE EXAM 01/12/2020 01/11/2019, , 01/05/2019 LIPID PANEL 11/23/2020 11/24/2019, 03/07, 02/24/2018, Additional history exists HEMOGLOBIN A1C 07/17/2021 01/14/2021, 02/0 05/2021, 07/24/2020, Additional history exists RSV Vaccine - Adults (1 - 1- dose 75+ series) 02/02/2024 INFLUENZA VACCINE 04/07/2025 06/27/2021, , 06/04/2020, Additional history exists COVID-19 Vaccine ( - 2024-2 6 season) 2025 06/27/2021, 11/01/2020, 10/04/2020 COLONOSCOPY 04/28/2027 04/28/2022, 05/19/2018 COLORECTAL CANCER SCREENING 04/28/2027 HEPATITIS C SCREENING Completed 12/13/2019 , 12/21/2018, 12/21/2018 MAMMOGRAM Discontinued 11/28/2021, 11/06, 10/13/2014 [facility] Discontinued Procedures Procedure Name Priority Date/Time Associated [...] - 5.60 % 09/07/2019 4:51 PM EST [facility] Blood Venipuncture / Unknown 09/07/2019 4:10 PM EST 09/07/2019 4:19 PM EST Narrative [facility] - 09/07/2019 4:51 PM EST Hemoglobin A1C Ranges: Increased Risk for Diabetes 5.7% to 6.4% Diabetes >= 6.5% Diabetic Goal < 7.0% Sammie Morales DNP, COVERED BUTTON MAKER LAB BLOOD ORDERABLES Fi nal Result [facility]
[address] [place] [address], * SCANNED - INFLUENZA (06/24/2019) Huber Grossman MD CHART REVIEW TABS Final Re sult * (ABNORMAL) Lipid Panel (03/25/2019 10:33 AM EDT) Total Cholesterol 152 0 - 200 mg/dL 03/25/2019 6:52 PM EDT [facility] Triglycerides 165(H) 0 - 150 mg/dL 03/25/2019 6:52 PM EDT [facility] HDL Cholesterol 37(L) 40 - 60 mg/dL 03/25/2019 6:52 PM EDT [facility] LDL Cholesterol 82 0 - 100 mg/dL 03/25/2019 6:52 PM EDT [facility] VLDL Cholesterol 33 5 - 40 mg/dL 03/25/2019 6:52 PM EDT [facility] LDL/HDL Ratio 2.22 03/25/2019 6:52 PM EDT [facility] Blood Left upper arm structure / Unknown Venipuncture / Unknown 03/25/2019 10:33 AM EDT 03/25/2019 10:33 AM EDT Narrative [facility] - 03/25/2019 6:52 PM EDT Cholesterol [...] MD LAB BLOOD ORDERABLES Final Re sult [facility]
[address] [place] [address], * SCANNED - EYE EXAM (01/05/2019) Anatomical Region Laterality Modality Other Huber Grossman MD CHART REVIEW TABS Final Re sult * Hepatitis C Antibody (12/21/2018 10:57 AM EDT) Hepatitis C Ab Non-Reacti ve Non-Reacti ve 12/21/2018 7:17 PM EDT [facility] Blood Right upper arm structure / Unknown Venipuncture / Unknown 12/21/2018 10:57 AM EDT 12/21/2018 10:58 AM EDT us Huber Grossman MD LAB BLOOD ORDERABLES Final Re sult [facility]
[address] [place] [address], [place] [phone] from Last 3 Months or Most Recently Relevant to Health Maintenance Additional Health Concerns Infection Onset Date Last Indicated 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 09/08/2019 09/08/2019 Insurance MEDICARE A & B [facility] Advance Directives * CPR (Attempt [...] pulse or is breathing): Full Care Teams Spinning Bath Person Relationship Specialty Start Date End Date Dano Romero MD [address] [place] [address] PCP - General Internal Medicine 09/29/19
[2025-06-28 17:08] LABS: Alanine Aminotransferase 20 U/L (12-78); Albumin Level 4.1 g/dl (3.5-5.0); Albumin/Globulin Ratio 1.5 (1.1-1.8); Alkaline Phosphatase 97 U/L (38-126); Anion Gap 16.1 mEq/L (5-15); Aspartate Amino Transferase 23 U/L (14-36); Bilirubin,Total 0.5 mg/dl (0.2-1.3); Blood Urea Nitrogen 26 mg/dl (7-17); Calcium 10.4 mg/dl (8.4-10.2); Carbon Dioxide 28 mmol/L (22.0-30.0); Chloride 100 mmol/L (98-107); Creatinine Clearance Estimated 27 mL/min (50-200); Creatinine,Serum 1.40 mg/dl (0.52-1.04); Estimated Glomerular Filt Rate 37 ml/min (>60); GFR (African American) 44 ML/MIN (>60); Globulin 2.8 g/dL (1.3-3.2); Glucose 163 mg/dl (74-100); Potassium 4.1 mmoL/L (3.5-5.1); Sodium 140 mmol/L (136-145); Total Protein,Serum 6.9 g/dl (6.3-8.2)
[2025-06-28 17:13] LABS: D-Dimer 0.66 ug/mL (0.0-0.5)
[2025-06-28 17:20] LABS: Troponin I < 0.01 ng/ml (0.00-0.034)
[2025-06-28 17:36] LABS: Magnesium 1.4 mg/dl (1.6-2.3)
[2025-06-28 17:44] LABS: Free T4 (Free Thyroxine) 1.45 ng/dl (0.78-2.19)
[2025-06-28 18:08] LABS: Thyroid Stimulating Hormone 0.07 uIU/mL (0.465-4.68)
[2025-06-28] MEDS: MAGNESIUM SULFATE IN WATER 2 GM/50 ML PIGGYBACK IV (18:12)
== END 2025-06-28 19:24 | disposition home or self-care (01) ==
PROVIDERS: Nurse Practitioner Family; Emergency Provider Student in an Organized Health Care Education/Training Program; PCP Internal Medicine Adolescent Medicine
DX: I48.0 Paroxysmal atrial fibrillation (principal); E83.42 Hypomagnesemia; R53.83 Other fatigue; R42 Dizziness and giddiness; I10 Essential (primary) hypertension; E78.5 Hyperlipidemia, unspecified; Z95.818 Presence of other cardiac implants and grafts; Z87.891 Personal history of nicotine dependence
CPT/HCPCS: 71045; 80053; 83735; 84439; 84443; 84484; 85025; 85378; 93005; 96365; 99285; J3475

== ENCOUNTER 2025-08-07 13:12 | Outpatient (CLI) | payer MEDICARE, OTHER, SELFPAY ==
--- OUTSIDE RECORDS SUMMARY | 2025-07-19 11:58 | XMS_ITS | Encounter Summary ---
Author Organization [facility] Address [address] [place] [address] Care Team Providers Care Roofing Applicator Name Role Phone Heladio Palm MD Primary Care Provider + [phone] Reason for Referral * Imaging (Routine) - Closed Specialty Diagnoses / Procedures Referred By Esequiel hall Referred To Contact Radiology Diagnoses Presence of Watchman left atrial appendage closure device Paroxysmal atrial fibrillation (CMS/HCC) Procedures CT Angio Cardiac Structure Morphology Svetlana Olguin PA [address] [place] [address] Phone: tel: fax: Referral ID Status Reason Start Date Expiration Date Visits Re quested Visits Authorized [id number] Closed 05/31/2025 11/30/2026 1 1 Reason for Visit * Imaging (Routine) - Closed Specialty Diagnoses / Procedures Referred By Contac rafael Referred To Contact Radiology Diagnoses Presence of Watchman left atrial appendage closure device Paroxysmal atrial fibrillation (CMS/HCC) Procedures CT Angio Cardiac Structure Morphology Svetlana Olguin PA [address] [place] [address] Phone: tel: fax: Referral ID Status Reason Start Date Expiration Date Visits Re quested Visits Authorized [id number] Closed 05/31/2025 11/30/2026 1 1 Encounter Details Date Type Department Care Team (Latest Contact Info) Description 07/19/2025 11:58 AM EST - 07/19/2025 11:59 PM EST Hospital Encounter [facility] [address] [place] [address] Presence of Watchman left atrial appendage closure device; Paroxysmal atrial fibrillation (CMS/HCC) Discharge Disposition: Home or Self Care Social History Tobacco Use Types Packs/Day Years Used Date Smoking Tobacco: Former Cigarettes 1 7 0 09/07/1992 - 09/07/1999 Passive Smoke Exposure: Past Smokeless Tobacco: Never Alcohol Use Standard Drinks/Week Comments Not Currently 0 (1 standard drink = 0.6 oz pur e alcohol) PHQ-2 Answer Date Recorded Patient Health Questionnaire-2 Score 0 07/28/2025 PHQ-9 Answer Date Recorded Patient Health Questionnaire-9 Score 0 07/28/2025 AUDIT-C Answer Date Recorded Q1: How often do you have a drink containing alcohol? Never 07/26/2025 Q2: How many drinks containi ng alcohol do you have on a typical day when you are drinking? Patient does not drink Q3: How often do you have si x or more drinks on one occasion? Never 07/26/2025 PHQ-2A Answer Date Recorded Patient Health Questionnaire-2 Score 4 06/12/2023 Comments No Sex and Gender Information Value Date Recorded Sex Assigned at Not on file Legal Sex Female 8:26 PM EDT Gender Identity Not on file Sexual Orientation Not on file documented as of this encounter Functional Status * AUDIT-C Score Answer Date of Assessment Author 0 07/26/2025 10:54 AM Lluvia Singer * Question Answer Date of Assessment Author Q1: How often do you have a drink containing alcohol? Never 07/26/2025 10:54 AM Beatriz Singer Q2: How many drinks containing alcohol do you have on a typical day when you are drinking? Patient does not drink 07/26/2025 10:54 AM Lluvia Singer Q3: How often do you have six or more drinks on one occasion? Never 07/26/2025 10:54 AM Beatriz Singer * Over the past 2 weeks, how often have you been bothered by any of the following problems? Question Answer Date of Assessment Author Little interest or pleasure in doing things Not at all 07/28/2025 12:57 PM Emmie Lopes Feeling down, depressed, or hopeless Not at all 07/28/2025 12:57 PM Emmie Lopes Patient Health Questionnaire -2 Score 0 07/28/2025 12:57 PM Emmie Lopes * Question Answer Date of Assessment Author Trouble falling or staying asleep, or sleeping too much Not at all 07/28/2025 12:57 PM Emmie Diaz Feeling tired or having gabby le energy Not at all 07/28/2025 12:57 PM Emmie Lopes Poor appetite or overeating Not at all 07/28/2025 12 :57 PM Emmie Lopes Feeling bad about yourself - or that you are a failure or have let yourself or your family down Not at all 07/28/2025 12:57 PM Emmie Valverde Trouble concentrating on thi ngs, such as reading the newspaper or watching television Not at all 07/28/2025 12:57 PM Emmie Lopes Moving or speaking so slowly that other people could have noticed? Or the opposite - being so fidgety or restless that you have been moving around a lot more than usual. Not at all 07/28/2025 12:57 PM Emmie Lopes Thoughts that you would be b dandre off or hurting yourself in some way Not at all 07/28/2025 12:57 PM Emmie Lopes Patient Health Questionnaire -9 Score 0 07/28/2025 12:57 PM Emmie Lopes * How difficult have these problems made it for you to do your work, take care of things at home, or get along with other people? Answer Date of Assessment Author Not difficult at all 07/28/2025 12:57 PM Emmie Valverde documented as of this encounter Medications at Time of Discharge acetaminophen (Tylenol 8 Hour) 650 MG ER tablet Take 1 tablet by mouth every 8 hours as needed for mild pain. Do not crush, chew, or split. aspirin 81 MG EC tablet Take 1 tablet by mouth daily. 05/30/2025 atorvastatin (Lipitor) 80 MG tabletIndication s:Coronary artery disease involving [place] coronary artery of [place] heart without angina pectoris TAKE 1 TABLET BY MOUTH 1 TIME EACH DAY. 90 tablet 3 01/14/2023 biotin 1000 MCG tablet 1 (one) time each day at the same time. carvedilol (Coreg) 12.5 MG tablet 05/15/2025 carvedilol (Coreg) 25 MG tablet TAKE 1 TABLET BY MOUTH TWICE A DAY FOR 30 DAYS 04/17/2022 cholecalciferol (Vitamin D3) 25 MCG (1000 UT) tablet Take 1 tablet by mouth daily. clopidogrel (Plavix) 75 MG tablet Take 1 tablet by mouth daily. 07/01/2022 dapagliflozin (Farxiga) 10 MG tablet Take 1 tablet by mouth daily. dilTIAZem CD (Cardizem CD) 180 MG 24 hr capsule take 1 capsule by mouth nightly at bedtime 05/31/2025 fexofenadine (Manju) 180 MG tablet Take 1 tablet by mouth daily. furosemide (Lasix) 40 MG tablet Take 1 tablet by mouth daily. 04/18/2025 levothyroxine (Synthroid, Levoxyl) 100 MCG tablet Take 1 tablet by mouth daily. 03/01/2022 losartan (Cozaar) 50 MG tablet 06/07/2025 magnesium oxide (Mag-Ox) 400 (240 Mg) MG tablet Take 1 tablet by mouth daily. pantoprazole (Protonix) 40 MG EC tablet 06/07/2025 venlafaxine (Effoxor) 100 MG tablet Take 1 tablet by mouth daily. 04/19/2022 dilTIAZem CD (Cardizem CD) 240 MG 24 hr capsule Take 1 capsule by mouth nightly. 04/14/2025 5 diphenhydrAMINE (Benadryl) 50 MG tablet Please tablet one tablet prior to receiving IV Contrast 1 tablet 2 07/13/2025 5 predniSONE (Deltasone) 50 MG tablet Please take one tablet 13 hours, seven hours, and one hour prior to receiving IV Contrast. 3 tablet 2 07/13/2025 5 documented as of this encounter Plan of Treatment Upcoming Encounters Date Type Department Care Team (Late st Contact Info) Description 08/14/2025 1:30 PM EST Office Visit [facility] [address] [place] [address] 10/03/2025 2:40 PM EST Office Visit [facility] [address] [facility] [address], [address] [place] [address] Alejandra Camacho MD [address] [address] [facility] [address] [place] [address] 11/03/2025 12:30 PM EST Appointment Cardiac Imaging [address] [place] [address] 11/03/2025 2:00 PM EST Appointment Cardiac Imaging [address] [place] [address] 11/08/2025 10:00 AM EST Office Visit [facility] [place] [address] [address] [facility] [address], [address] [place] [address] Svetlana Olguin PA [address] [place] [address] 01/26/2026 11:00 AM EDT Office Visit [facility] [address] [place] [address] Luis Olivares MD [address] [address] Scheduled Orders Name Type Priority Associated Diagnoses Order Schedule POCT creatinine venous clear green (no-gel) Point of Care Testing - Docked Devices Routine Once (Lab) for 1 Occurrences starting 07/19/2025 until 07/19/2025 documented as of this encounter Procedures Procedure Name Priority Date/Time Associated Diagnosis Comments CT ANGIO CARDIAC STRUCTURE MORPHOLOGY Routine 07/19/2025 1:10 PM EST Presence of Watchman left atrial appendage closure device Paroxysmal atrial fibrillation (CMS/HCC) POCT CREATININE ISTAT UNSOLICITED RESULTS Routine 07/19/2025 12:11 PM EST documented in this encounter Results * CT Angio Cardiac Structure Morphology (07/19/2025 1:10 PM EST) Anatomical Region Laterality Modality Heart Computed Tomogra phy Impressions 07/20/2025 7:24 AM EST 1. The left atrial appendage occluder device is well seated. There is no significant yon-device leak. There is no thrombus on the atrial surface of the device. 2. Coronary artery atherosclerosis with extensive place. 3. Extracardiac structures in the field of view are unremarkable. Critical Result: No. Communication: Per this written report. By electronically signing this report, I, the attending physician, attest that I have personally reviewed the images/data for the above examination(s) and agree with the final edited report. Drafted by Tru Olson on 07/19/2025 1:12 PM Final report signed by Lavelle Mccarthy MD on 07/20/2025 7:24 AM Narrative 07/20/2025 7:24 AM EST CLINICAL INFORMATION: 75 years old Female with a past medical history of coronary artery disease post stent in LAD, Afib, left ventricular hypertrophy, chronic fatigue, asthma, HTN, DELL on BiPAP, history of IgA vasculitis, CKD, and obesity who presents for cardiac CTA evaluation after left atrial appendage occlusion (Watchman) procedure done on 05/30/25 (50 days ago). Height: 155 cm Weight: 106 kg Comparison imaging: CT Chest w/o contrast - 11/28/19 SCAN TECHNIQUE: Image Acquisition and Reconstruction: A Dual source 192 MDCT scanner (Som[employer] Force, [employer]) was used for data acquisition. Bolus tracking in the left atrium with a threshold of 180 HU was performed. Immediately afterwards, Cardiac CT was then performed from cardiac base to apex using ECG gatedTurbo Flash mode. A 45-second delayed scan was performed using ECG gated TurboFlash mode for assessment of thrombus. A total of 80 mL Omnipaque 350mgI/mL contrast media was administered followed by a saline flush using a biphasic injection protocol. Transaxial images were reconstructed at 0.75 mm slice thickness. Data was reviewed interactively on an advanced workstation ([employer]) capable of 2 and 3 dimensional displays in all conventional reconstruction formats including multiplanar reformations, maximum intensity projections, curved multiplanar reformations, and volume rendered reconstructions. Selected routine images displaying relevant coronary anatomy and pathology were saved and sent to PACS. Total DLP (Dose-Length Product): 380.64 mGy.cm. Please note: The reported value represents the total of one or more individual components during the CT acquisition on this date and at this time, and as such, the same value may appear in more than one CT report depending on the interpreting/reporting physicians. Technical Quality: Overall image quality is Excellent. Left atrial opacification is Excellent and the images are free of significant artifact. FINDINGS: --- Left Atrial Appendage --- The left atrial appendage occluder device is well seated. There is no significant yon-device leak. There is no thrombus on the atrial surface of the device. --- Other Cardiac Findings --- Normal cardiac chamber size. No significant pericardial effusion, thickening, or calcification. Normal interatrial and interventricular septum. Grossly normal mitral valve. Mild aortic valve calcification. Multivessel coronary artery disease status post stent to the left anterior descending coronary artery. --- Extra Cardiac Structures --- Partially imaged aorta demonstrate mild atherosclerotic plaque. Partially imaged pulmonary arteries are unremarkable. Bronchiectasis and scarring in the medial aspect of the middle lobe is noted. No suspicious lesion in the visualized portion of the upper abdomen. Degenerative changes of the thoracic spine. Calcified nodule in the right breast. Procedure Note Lavelle Mccarthy MD - 07/20/2025 CLINICAL INFORMATION: 75 years old Female with a past medical history of coronary arterydisease post stent in LAD, Afib, left ventricular hypertrophy, chronicfatigue, asthma, HTN, DELL on BiPAP, history of IgA vasculitis, CKD, andobesity who presents for cardiac CTA evaluation after left atrialappendage occlusion (Watchman) procedure done on 05/30/25 (50 days ago). Height: 155 cm Weight: 106 kg Comparison imaging: CT Chest w/o contrast - 11/28/19 SCAN TECHNIQUE: Image Acquisition and Reconstruction: A Dual source 192 MDCT scanner (Som[employer] Force, [employer])was used for data acquisition. Bolus tracking in the left atrium with athreshold of 180 HU was performed. Immediately afterwards, Cardiac CT wasthen performed from cardiac base to apex using ECG gatedTurbo Flash mode.A 45-second delayed scan was performed using ECG gated TurboFlash mode forassessment of thrombus. A total of 80 mL Omnipaque 350mgI/mL contrastmedia was administered followed by a saline flush using a biphasicinjection protocol. Transaxial images were reconstructed at 0.75 mm slicethickness. Data was reviewed interactively on an advanced workstation([employer]) capable of 2 and 3 dimensional displays in all conventionalreconstruction formats including multiplanar reformations, maximumintensity projections, curved multiplanar reformations, and volumerendered reconstructions. Selected routine images displaying relevantcoronary anatomy and pathology were saved and sent to PACS. Total DLP (Dose-Length Product): 380.64 mGy.cm. Please note: The reportedvalue represents the total of one or more individual components during theCT acquisition on this date and at this time, and as such, the same valuemay appear in more than one CT report depending on theinterpreting/reporting physicians. Technical Quality: Overall image quality is Excellent. Left atrial opacification is Excellent and the images are free ofsignificant artifact. FINDINGS: --- Left Atrial Appendage --- The left atrial appendage occluder device is well seated. There is nosignificant yon-device leak. There is no thrombus on the atrial surfaceof the device. --- Other Cardiac Findings --- Normal cardiac chamber size. No significant pericardial effusion,thickening, or calcification. Normal interatrial and interventricularseptum. Grossly normal mitral valve. Mild aortic valve calcification.Multivessel coronary artery disease status post stent to the left anteriordescending coronary artery. --- Extra Cardiac Structures --- Partially imaged aorta demonstrate mild atherosclerotic plaque. Partiallyimaged pulmonary arteries are unremarkable. Bronchiectasis and scarring inthe medial aspect of the middle lobe is noted. No suspicious lesion in thevisualized portion of the upper abdomen. Degenerative changes of thethoracic spine. Calcified nodule in the right breast. IMPRESSION: 1. The left atrial appendage occluder device is well seated. There is nosignificant yon-device leak. There is no thrombus on the atrial surfaceof the device. 2. Coronary artery atherosclerosis with extensive place. 3. Extracardiac structures in the field of view are unremarkable. Critical Result: No. Communication: Per this written report. By electronically signing this report, I, the attending physician, attestthat I have personally reviewed the images/data for the aboveexamination(s) and agree with the final edited report. Drafted by Tru Olson on 07/19/2025 1:12 PM Final report signed by Lavelle Mccarthy MD on 07/20/2025 7:24 AM us Svetlana GORDON IMG CT PROCEDURES Final Result * POCT creatinine (07/19/2025 12:11 PM EST) Pathologist [facility] Creatinine, Point of Care 1.1 0.6 - 1.1 mg/dL 07/19/2025 12:14 PM EST [facility] POCT eGFR 52 mL/min/1. 73m*2 07/19/2025 12:14 PM EST [facility] [employer] Observer ID CarmelJuli clarkstacey Karimi 07/19/2025 12:14 PM EST [facility] Device ID [id number] 07/19/2025 12:14 PM EST [facility] Comment 07/19/2025 12:14 PM EST [facility] Comment:Testing performed on i-STAT at the point of care. Reported eGFRcr in mL/min/1.73m2 is based the CKD-EPI 2020 equation that does not use a race coefficient. Blood Venous blood specimen / Unknown 07/19/2025 12:11 PM EST 07/19/2025 12:14 PM EST us Generic Provider Poct LAB POINT OF CARE TEST DOCKED DEVICE UNSOLICITED RESULTS Final Result [facility] [address] [facility] [address] [place] [address] documented in this encounter Visit Diagnoses Diagnosis Presence of Watchman left atrial appendage closure device Paroxysmal atrial fibrillation (CMS/HCC) Atrial fibrillation documented in this encounter Administered Medications Inactive Administered Medications - up to 3 most recent administrations Medication Order MAR Action Action Date Dose Rate Site iohexol (OMNIPaque) 350 MG/ML injection 80 mL 80 mL, Intravenous, Once in imaging, 1 dose, Starting on Thu07/19/25 at 1302, Until Thu07/19/25 at 1303, Routine, Imaging Protocol Orders Given 07/19/2025 1:03 PM EST 80 mL documented in this encounter Additional Health Concerns Infection Onset Date Last Indicated Resolved Time MRSA Comment:Added from external infection. Source: [facility]. 09/07/2019 Assessment Noted Time PHQ-9 Depression Total Score: 0 04/24/20 25 1:50 PM EDT A fall risk assessment has been complete d for the patient 06/05/2025 4:07 PM EDT A Body Mass Index follow-up plan has been documented for the patient 06/08/2025 11:44 AM EDT documented as of this encounter Care Teams Roofing Applicator Relationship Specialty Start Date End Date Heladio Palm MD [address] [place] [id number] PCP - General Internal Medicine 05/02/22 documented as of this encounter
--- OUTSIDE RECORDS SUMMARY | 2025-07-26 16:00 | XMS_ITS | Encounter Summary ---
Author Organization [facility] Address [address] [place] [address] Care Team Providers Care Floor Covering Contractor Name Role Phone Heladio Palm MD Primary Care Provider + [phone] Reason for Visit * Reason Comments Follow-up Encounter Details Date Type Department Care Team (Late st Contact Info) Description 07/26/2025 4:00 PM EST Office Visit [facility] [place] [address], [address] [place] [address] Svetlana Olguin PA [address] [place] [address] Paroxysmal atrial fibrillation (CMS/HCC) (Primary Dx) Social [...] Recorded Patient Health Questionnaire-9 Score 0 04/24/2025 AUDIT-C Answer Date Recorded Q1: How often [...] - Inhaled Oxygen Concentration - - Weight 103 kg (227 lb) 07/26/2025 10:53 AM EST Height 154.9 cm (5' 1 ) 07/26/2025 10:53 AM EST Body Mass Index 42.89 07/26/2025 10:53 AM EST documented in this encounter Functional Status * AUDIT-C Score [...] occasion? Never 07/26/2025 10:54 AM Beatriz Singer documented as of this encounter Miscellaneous Notes * Progress Notes - Svetlana Olguin PA - 07/26/2025 4:00 PM EST Images from the original note were not included. Cardiology Clinic Note Subjective Mirtha Barrios is a 75 y.o. female who presents today for follow-up after watchman via telehealth. Patient's medical history is significant for PAF, HTN, DM and CAD s/p LAD PCI 2021. 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 Patient was on Xarelto at the time of her bleed and has not been on anticoagulation since that time. She underwent watchman placement on 05/30/25 and wasdischarged on DAPT. Since her watchman she has had several weeks of atrial fibrillation and has not felt well. She was evaluated by cardiology at [place] who recommend patient proceed with a heart cath which she requested be performed here. History of Present Illness Review of Systems 14 Point ROS reviewed and is otherwise negative except as per HPI. The following portions of the chart were reviewed this encounter and updated as appropriate: Objective Medications Current Medications[1] Physical Exam Visit Vitals Ht 1.549 m (5' 1 ) Wt 103 kg (227 lb) BMI 42.89 kg/m?? Physical Exam Constitutional: Appearance: Normal appearance. Neurological: Mental Status: She is alert and oriented to person, place, and time. Psychiatric: Mood and Affect: Mood normal. Behavior: Behavior normal. Results Imaging Echo, Adult Transesophageal (JOSE) Result Date: 05/31/2025 JOSE guidance for Watchman Device placement. Left [...] Right Ventricle: The right ventricular systolic function isnormal. Pericardium: There is a small pericardial effusion before starting the procedure. There is no echocardiographic evidence of cardiac tamponade. Effusion stable at end of procedure. Echo, Adult Transthoracic (TTE) Limited Result Date: 05/30/2025 Labs Lab Results Component Value Date HGB 14.4 05/30/2025 HCT 43.8 05/30/2025 PLT 249 05/30/2025 CHOL 190 01/15/2017 TRIG 248 01/15/2017 HDL 40 01/15/2017 LDLCALC 100 01/15/2017 ALT 19 05/06/2023 AST 14 05/06/2023 NA 138 05/30/2025 K 4.7 05/30/2025 CREATININE 1.10 05/30/2025 BUN 27 (H) 05/30/2025 CO2 22 05/30/2025 TSH 3.23 05/06/2023 INR 1.2 (H) 11/23/2019 HGBA1C 6.8 (H) 11/23/2019 BNP 803 11/23/2019 BILITOT 0.3 05/06/2023 Results Assessment Assessment & Plan #PAF - CHADSVASC 6 - s/p watchman placement 05/30/25 - CTA shows well positioned device with no significant leak or thrombus - Discussed patient with Dr. Allen, he would like to see patient in clinic on Thursday to assess her prior to proceeding with the cath which is currently scheduled for 08/08 - Patient should continue DAPT until 6 months post-watchman then reduce to single anti-platelet therapy Patient will be scheduled to see Dr. Allen this Thursday I spent 25 minutes performing the following components of the encounter (on the day of the encounter): reviewing History, examining the patient, reviewing imaging and/or labs, counseling the patient and family/caregiver, communicating with other health housekeeper caregiver, and entering clinical information in the EHR. Greater than 50% of the time spent on the encounter was face to face providing direct patient care, counseling for the patient/caregiver, and care coordination. Patient Verification Patient identity has been confirmed using name and date of ? Yes Authorizations and Agreements/Telemedicine Consent sent and consent confirmed? Yes Patient Location: Patient's Home Patient confirms they are physically located in [place]? Yes Provider Location: HealthCare Facility Audio and video or audio only? Audio only Audio only due to no video capability Svetlana Olguin PA-C [1] Current Outpatient Medications Medication Sig Dispense Refill acetaminophen (Tylenol 8 Hour) 650 MG ER tablet Take 1 tablet by mouth every 8 hours as needed for mild pain. Do not crush, chew, or split. aspirin 81 MG EC tablet Take 1 tablet by mouth daily. atorvastatin (Lipitor) 80 MG tablet TAKE 1 [...] tablet Take 1 tablet by mouth daily. dapagliflozin (Farxiga) 10 MG tablet Take 1 tablet by mouth daily. dilTIAZem CD (Cardizem CD) 240 MG 24 hr capsule Take 1 capsule by mouth nightly. fexofenadine (Manju) 180 MG tablet Take 1 tablet by mouth daily. furosemide (Lasix) 40 MG tablet Take 1 tablet by mouth daily. levothyroxine (Synthroid, Levoxyl) 100 MCG tablet Take 1 tablet by mouth daily. magnesium oxide (Mag-Ox) 400 (240 Mg) MG tablet Take 1 tablet by mouth daily. venlafaxine (Effoxor) 100 MG tablet Take 1 tablet by mouth daily. diphenhydrAMINE (Benadryl) 50 MG tablet Please tablet one tablet prior to receiving IV Contrast (Patient not taking: Reported on 07/26/2025) 1 tablet 2 predniSONE (Deltasone) 50 MG tablet Please take one tablet 13 hours, seven hours, and one hour prior to receiving IV Contrast. (Patient not taking: Reported on 07/26/2025) 3 tablet 2 No current facility-administered medications for this visit. documented in this encounter Plan of Treatment Upcoming Encounters Date Type Department Care Team (Late st Contact Info) Description 08/14/2025 1:30 PM EST Office Visit [facility] [address] [place] [address] 10/03/2025 2:40 PM EST Office Visit [facility] [employer] [place] [facility], Bone & Mineral Metabolism [address], [address] [place] [address] Alejandra Camacho MD [address] [place] [address] 11/03/2025 12:30 PM EST Appointment Cardiac Imaging [address] [place] [address] 11/03/2025 2:00 PM EST Appointment Cardiac Imaging [address] [place] [address] 11/08/2025 10:00 AM EST Office Visit [facility] [place] [address], [address] [place] [address] Svetlana Olguin PA [address] [facility] [place] [id number] 01/26/2026 11:00 AM EDT Office Visit [facility] [address] [place] [address] Luis Olivares MD [address] [place] [address] documented as of this encounter Visit Diagnoses Diagnosis Paroxysmal atrial fibrillation (CMS/HCC)- Primary Atrial fibrillation documented in this encounter Additional Health Concerns Infection Onset Date Last Indicated Resolved Time MRSA Comment:Added from external infection. Source: [facility]. 09/07/2019 Assessment Noted Time PHQ-9 Depression Total Score: 0 04/24/20 25 1:50 PM EDT A fall risk assessment has been complete d for the patient 07/26/2025 10:52 AM EST A Body Mass Index follow-up plan has been documented for the patient 07/26/2025 11:46 AM EST documented as of this encounter Care Teams Floor Covering Contractor Relationship Specialty Start Date End Date Heladio Palm MD [address] [place] [address] PCP - General Internal Medicine 05/02/22 documented as of this encounter
--- OUTSIDE RECORDS SUMMARY | 2025-07-28 13:00 | XMS_ITS | Encounter Summary ---
Author Organization [facility] Address [address] [place] [address] Care Team Providers Care Newscast Producer Name Role Phone Heladio Palm MD Primary Care Provider + [phone] Reason for Referral * Consultation (Routine) - Authorized Specialty Diagnoses / Procedures Referred By Esequiel t Referred To Contact Diagnoses Coronary artery disease involving upper sioux coronary artery of upper sioux heart without angina pectoris Concepción Castillo APRN [address] [place] [address] Phone: tel: fax: Referral ID Status Reason Start Date Expiration Date V isits Requested Visits Authorized [id number] Authorized 07/28/2025 01/27/2027 1 1 * Imaging (Routine) - Pending Review Specialty Diagnoses / Procedures Referred By Esequiel t Referred To Contact Cardiology Diagnoses Coronary artery disease involving upper sioux coronary artery of upper sioux heart without angina pectoris Procedures NM Myocardial Perfusion Stress Test Concepción Castillo APRN [address] [place] [address] Phone: tel: fax: Referral ID Status Reason Start Date Expiration Date V isits Requested Visits Authorized [id number] Pending Review 07/28/2025 01/27/2027 1 1 * Consultation (Routine) - Authorized Specialty Diagnoses / Procedures Referred By Contac t Referred To Contact Endocrinology Diagnoses Type 2 diabetes mellitus with other specified complication, without long-term current use of insulin Hypothyroidism, unspecified type Concepción Castillo APRN [address] [place] [address] Phone: tel: fax: Referral ID Status Reason Start Date Expiration Date Visits Requested Visits Authorized [id number] Authorized Specialty Services Required 5 01/27/2027 1 1 Reason for Visit * Reason Comments Advice Only Encounter Details Date Type Department Care Team (Late st Contact Info) Description 07/28/2025 1:00 PM EST Office Visit [facility] [place] [address] [place] [address] Bryan Allen MD [address] [place] [address] Paroxysmal atrial fibrillation (CMS/HCC) (Primary Dx); Type 2 diabetes mellitus with other specified complication, without long-term current use of insulin; Hypothyroidism, unspecified type; Coronary artery disease involving upper sioux coronary artery of upper sioux heart without angina pectoris Social History Tobacco [...] Reading Time Taken Comments Blood Pressure 109/73 07/28/2025 12:52 PM EST Pulse 86 07/28/2025 12:52 PM EST Temperature - - Respiratory Rate - - Oxygen Saturation 93% 07/28/2025 12:52 PM EST Inhaled Oxygen Concentration - - Weight 103 kg (227 lb 1.2 oz) 07/28/2025 12:52 P M EST Height 154.9 cm (5' 1 ) 07/28/2025 12:52 PM EST Body Mass Index 42.91 07/28/2025 12:52 PM EST documented in this encounter Functional Status * Over the past 2 weeks, how often have you been bothered by any of the following problems? Question Answer Date of Assessment Author Little interest or pleasure in doing things Not at all 07/28/2025 12:57 PM EST Emmie White Feeling down, depressed, or hopeless Not at all 07/28/2025 12:57 PM EST Emmie White Patient Health Questionnaire -2 Score 0 07/28/2025 12:57 PM EST Emmie White * Question Answer Date of Assessment Author Trouble falling or staying asleep, or sleeping too much Not at all 07/28/2025 12:57 PM EST Emmie Shukla Feeling tired or having gabby le energy Not at all 07/28/2025 12:57 PM EST Emmie White Poor appetite or overeating Not at all 07/28/2025 12 :57 PM EST Emmie White Feeling bad about yourself - or that you are a failure or have let yourself or your family down Not at all 07/28/2025 12:57 PM EST Emmie Drew Trouble concentrating on thi ngs, such as reading the newspaper or watching television Not at all 07/28/2025 12:57 PM EST Emmie White Moving or speaking so slowly that other people could have noticed? Or the opposite - being so fidgety or restless that you have been moving around a lot more than usual. Not at all 07/28/2025 12:57 PM EST Emmie White Thoughts that you would be b dandre off or hurting yourself in some way Not at all 07/28/2025 12:57 PM EST Emmie White Patient Health Questionnaire -9 Score 0 07/28/2025 12:57 PM EST Emmie White * How difficult have these problems made it for you to do your work, take care of things at home, or get along with other people? Answer Date of Assessment Author Not difficult at all 07/28/2025 12:57 PM EST Emmie Drew documented as of this encounter Miscellaneous Notes * Progress Notes - Concepción Castillo, R&D LAB TECHNICIAN - 07/28/2025 1:00 PM EST Images from the original note were not included. Cardiology Follow Up History of Present Illness Mirtha Barrios is a 75 y.o. female who presents today for routine follow up. 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 Soto further evaluate ongoing cardiac symptoms. She has a long history of paroxysmal atrial fibrillation and has remained in AFib continuously over the past month. She reports increased shortness of breath and fatigue. Otherwise denies palpitations, chest pain, leg swelling, or syncope. She remains on DAPT following her Watchman procedure in May 2025. Review of symptoms 14 Point ROS reviewed and is otherwise negative except as per HPI. Past 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 Past 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[1] Surgical History Surgical History[2] Family History family history includes Abnormal EKG (age of onset: 40 - 49) in her father; Alcohol abuse in her father; Alzheimer's disease in her mother; Angina (age of onset: 40 - 49) in her father; Clotting disorder (age of onset: 50 - 59) in her mother; Conversions - Other in her father and mother; Diabetes in her mother; Heart attack in her father; Heart disease in her father; Heart failure (age of onset: 60 - 69) in her father; Hypertension in her father and mother; Lung disease (age of onset: 40 - 49) in her father; Stroke in her mother; lung mass in her father. Social History reports that she quit smoking about 25 years ago. Her smoking use included cigarettes. She started smoking about 32 years ago. She has a 7 pack-year smoking history. She has been exposed to tobacco smoke. She has never used smokeless tobacco. She reports that she does not currently use alcohol. She reports that she does not use drugs. Medications Current Medications[3] Physical Exam Vitals and nursing note reviewed. Constitutional: Appearance: Normal appearance. She is obese. HENT: Head: Normocephalic and atraumatic. Cardiovascular: Rate and Rhythm: Normal rate. Rhythm irregular. Pulses: Normal pulses. Heart sounds: Normal heart sounds. Pulmonary: Effort: Pulmonary effort is normal. Breath sounds: Normal breath sounds. Musculoskeletal: General: Normal range of motion. Cervical back: Normal range of motion. Skin: General: Skin is warm and dry. Capillary Refill: Capillary refill takes less than 2 seconds. Neurological: Mental Status: She is alert and oriented to person, place, and time. Psychiatric: Mood and Affect: Mood normal. Behavior: Behavior normal. Visit Vitals BP 109/73 Pulse 86 Ht 1.549 m (5' 1 ) Wt 103 kg (227 lb 1.2 oz) SpO2 93% BMI 42.91 kg/m?? Visit Diagnoses and Orders 1. Paroxysmal atrial fibrillation (CMS/HCC) Assessment and Plan: #PAF --CHADSVASC 4 --s/p Watchman (05/30/2025) --CTA shows well positioned device with no significant leak or thrombus --remain on DAPT 6 months post-Watchman, then reduce to single anti-platelet therapy #CAD --H/O PCI LAD (2021) --symptoms could be associated with CAD rather than Afib, but will proceed with nuclear stress testfirst and cancel upcoming LHC --no medication changes today --follow up via telehealth with VANIA to review nuclear stress test results and see if proceeding with cath is needed FOLLOW UP: after nuclear stress test (via telehealth) A total time of 35 minutes was spent by MD and VANIA addressing the current illness, reviewing records (prior imaging, lab work, etc), and formulating a plan. The patient is agreeable to the plan and all pertinent questions were answered. Patient was seen and assessed in collaboration with Dr. Bryan Allen who agrees with the above plan of care. Concepción Castillo, R&D LAB TECHNICIAN [1] Past 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: Diagnosis Date Allergic purpura (CMS/HCC) Henoch-Schonlein purpura Allergic rhinitis Allergy to metal 1966 Anemia Arrhythmia 1975 Asthma Childhood Atrial fibrillation (CMS/HCC) 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 Mukherjee's esophagus Bronchiectasis Childhood Cataract CHF (congestive heart failure) Clotting disorder COPD (chronic obstructive pulmonary disease) 2009 Coronary artery disease 2009 Diabetes mellitus 2015 Diabetic nephropathy Dizziness Dysphagia 2020 GERD (gastroesophageal reflux disease) 1989 Heart disease History of throat problem History of transfusion 1966 Hypertension 1997 Hypothyroidism, [...] the respiratory system History of chronic bronchitis Skin cancer 2001 Sleep apnea Snoring Tonsillitis Childhood Visual impairment [2] Past Surgical History: Procedure Laterality Date BLADDER SURGERY N/A Bladder Surgery from [facility] CARDIAC CATHETERIZATION June 2022 CATARACT EXTRACTION N/A Cataract Extraction from [facility] CHOLECYSTECTOMY N/A 2013 Cholecystectomy from [facility] CORONARY STENT PLACEMENT June 2022 HYSTERECTOMY N/A 1987 Hysterectomy from [facility] INTRAOCULAR LENS INSERTION KIDNEY SURGERY bleeding from kidney, fixed in IR MOHS SURGERY OTHER SURGICAL HISTORY N/A Biopsy Skin from [facility] TOTAL ABDOMINAL HYSTERECTOMY N/A Total Abdominal Hysterectomy from [facility] [3] Current Outpatient Medications Medication Sig Dispense Refill [...] same time. carvedilol (Coreg) 12.5 MG tablet cholecalciferol (Vitamin D3) 25 MCG (1000 UT) tablet Take 1 tablet by mouth daily. clopidogrel (Plavix) 75 MG tablet Take 1 tablet by mouth daily. dapagliflozin (Farxiga) 10 MG tablet Take 1 tablet by mouth daily. dilTIAZem CD (Cardizem CD) 180 MG 24 hr capsule take 1 capsule by mouth nightly at bedtime fexofenadine (Manju) 180 MG tablet Take 1 tablet by mouth daily. furosemide (Lasix) 40 MG tablet Take 1 tablet by mouth daily. levothyroxine (Synthroid, Levoxyl) 100 MCG tablet Take 1 tablet by mouth daily. losartan (Cozaar) 50 MG tablet magnesium oxide (Mag-Ox) 400 (240 Mg) MG tablet Take 1 tablet by mouth daily. Ozempic, 0.25 or 0.5 MG/DOSE, 2 MG/3ML solution pen-injector 0.25mg subcutaneous weekly pantoprazole (Protonix) 40 MG EC tablet venlafaxine (Effoxor) 100 MG tablet Take 1 tablet by mouth daily. carvedilol (Coreg) 25 MG tablet TAKE 1 TABLET BY MOUTH TWICE A DAY FOR 30 DAYS (Patient not taking:Reported on 07/28/2025) No current facility-administered medications for this visit. documented in this encounter Plan of Treatment Upcoming Encounters Date Type Department Care Team (Late st Contact Info) Description 08/14/2025 1:30 PM EST Office Visit [facility] [address] [place] [address] 10/03/2025 2:40 PM EST Office Visit [facility] Nephrology, Bone & Mineral Metabolism [address] [place] [address] Alejandra Camacho MD [address] [place] [address] 11/03/2025 12:30 PM EST Appointment Cardiac Imaging [address] [place] [address] 11/03/2025 2:00 PM EST Appointment Cardiac Imaging [address] [place] [address] 11/08/2025 10:00 AM EST Office Visit [facility] [place] [address], [address] [place] [address] Svetlana Olguin PA [address] [place] [address] 01/26/2026 11:00 AM EDT Office Visit [facility] [address] [place] [address] Luis Olivares MD [address] [place] [address] Scheduled Orders Name Type Priority Associated Diagnoses Orde r Schedule NM Myocardial Perfusion Stress Test Cardiac Nuclear Medicine Routine Coronary artery disease involving upper sioux coronary artery of upper sioux heart without angina pectoris Expected: 07/28/2025 (Approximate), Expires: 01/29/2027 Scheduled Referrals Name Type Priority Associated Diagnoses Order Schedule Ambulatory referral to Endocrinology Outpatient Referral Routine Type 2 diabetes mellitus with other specified complication, without long-term current use of insulin Hypothyroidism, unspecified type Expected: 07/28/2025 (Approximate), Expires: 01/29/2027 Follow Up Cardiology Outpatient Referral Routine Coronary artery disease involving upper sioux coronary artery of upper sioux heart without angina pectoris 1 Occurrences starting 07/28/2025 until 01/25/2027 documented as of this encounter Procedures Procedure Name Priority Date/Time Associated Diagnosis Comments ECG ADULT Routine 07/28/2025 1:06 PM EST Paroxysmal atrial fibrillation (CMS/HCC) documented in this encounter Results * ECG Adult (Now - Performed in your clinic) (07/28/2025 1:06 PM EST) EKG DIAGNOSIS CLASS Abnormal MUSE ECG Ventricular Rate 73 BPM MUSE ECG QRSD Interval 80 ms MUSE ECG QT Interval 334 ms MUSE ECG QTC Interval 367 ms MUSE ECG R Arbon 70 degrees MUSE ECG T Wave Arbon 174 degrees MUSE ECG Diagnosis Atrial fibrillation MUSE ECG Diagnosis Nonspecific T wave abnormality MUSE ECG Diagnosis MUSE ECG Diagnosis MUSE ECG Diagnosis Confirmed by Dena Herron ([id number]) on 07/28/2025 3:11:18 PM MUSE ECG 07/28/2025 1:06 PM EST 07/28/2025 3:11 PM EST us Bryan Allen MD ECG ORDERABLES Final Resu lt MUSE ECG documented in this encounter Visit Diagnoses Diagnosis Paroxysmal atrial fibrillation (CMS/HCC)- Primary Atrial fibrillation Type 2 diabetes mellitus with other specified complication, without long-term current use of insulin Hypothyroidism, unspecified type Coronary artery disease involving upper sioux coronary artery of upper sioux heart without angina pectoris documented in this encounter Additional Health Concerns Infection Onset Date Last Indicated Resolved Time MRSA Comment:Added from external infection. Source: [facility]. 09/07/2019 Assessment Noted Time PHQ-9 Depression Total Score: 0 07/28/20 25 12:57 PM EST A fall risk assessment has been complete d for the patient 07/28/2025 12:57 PM EST A Body Mass Index follow-up plan has been documented for the patient 07/28/2025 1:43 PM EST documented as of this encounter Care Teams Newscast Producer Relationship Specialty Start Date End Date Heladio Palm MD [address] [place] [address] PCP - General Internal Medicine 05/02/22 documented as of this encounter
--- NOTE | 2025-08-07 13:15 | XR_ITS ---
FINAL REPORT TECHNIQUE: Bone densitometry calculations of the lumbar spine and left hip were obtained. CLINICAL HISTORY: SCREENING COMPARISON: None FINDINGS: Using L1-4, the bone mineral density of the spine is 1.029 g/cm2, corresponding to T-score of -0.2 and a Z score of 2.3. This is within the range of normal limits. Using the left hip, the bone mineral density of the femoral neck is 0.552 g/cm2, corresponding to a T-score of -2.7 and a Z-score of -0.5. This is within the range of osteoporosis. FRAX not reported because some T-score at or below -2.5 NOTE: T-score: Standard deviation compared with peak bone mass of young adult mean. *Following the recommendations of the International Society of Bone densitometry, classification of hip BMD is based on the lower of two T-scores; total hip or femoral neck. IMPRESSION: 1. Bone mineral density of the lumbar spine within the range of normal limits. 2. Bone mineral density of the left femoral neck within the range of osteoporosis. Reviewed, Interpreted and Dictated by Lilia Murphy MD Transcribed by Khloe Rodríguez Authenticated and [facility]
--- OUTSIDE RECORDS SUMMARY | 2025-08-07 13:15 | XMS_ITS | Encounter Summary ---
Author Organization Healthcare Address [address] [place] [address] Care Team Providers Care Jukebox Coin Collector Name Role Phone Heladio Palm MD Primary Care Provider + [phone] Encounter Details Date Type Department Care Team (Latest Contact Info) Description 07/19/2025 Travel Social History Tobacco Use Types Packs/Day [...] [facility] [address] [place] [address] 10/03/2025 2:40 PM EST Office Visit Professional [facility] Nephrology, Bone & Mineral Metabolism [address] [facility] [place], [address] [place] [address] Alejandra Camacho MD [address] [facility] [place] [address] [place] [address] 11/03/2025 12:30 PM EST Appointment Cardiac Imaging [address] [place] [address] 11/03/2025 2:00 PM EST Appointment Cardiac Imaging [address] [place] [address] 11/08/2025 10:00 AM EST Office Visit [facility] [place] [address], [address] [place] [address] Svetlana Olguin PA [address] [place] [address] 01/26/2026 11:00 AM EDT Office Visit [facility] [address] [facility] [place] [address] Luis Olivares MD [address] [place] [address] documented as of this encounter Visit Diagnoses Not on filedocumented in this encounter Additional Health Concerns Infection Onset Date Last Indicated Resolved Time MRSA Comment:Added from external infection. Source: [facility]. 09/07/2019 Assessment Noted Time PHQ-9 Depression Total Score: 0 04/24/20 25 1:50 PM EDT A fall risk assessment has been complete d for the patient 06/05/2025 4:07 PM EDT A Body Mass Index follow-up plan has been documented for the patient 06/08/2025 11:44 AM EDT documented as of this encounter Care Teams Jukebox Coin Collector Relationship Specialty Start Date End Date Heladio Palm MD [address] [place] [address] PCP - General Internal Medicine 05/02/22 documented as of this encounter
--- OUTSIDE RECORDS SUMMARY | 2025-08-07 13:15 | XMS_ITS | Encounter Summary ---
Author Organization Healthcare Address [address] [place] [address] Care Team Providers Care Stock Layer Name Role Phone Heladio Palm MD Primary Care Provider + [phone] Encounter Details Date Type Department Care Team (Latest Contact Info) Description 07/26/2025 Travel Social History Tobacco Use Types Packs/Day [...] Beatriz Singer documented as of this encounter Plan of Treatment Upcoming Encounters Date Type Department Care Team ([facility] st Contact Info) Description 08/14/2025 1:30 PM EST Office Visit [facility] [address] [place] [address] 10/03/2025 2:40 PM EST Office Visit [facility] Nephrology, Bone & Mineral Metabolism [address] [facility], [address] [place] [address] Alejandra Camacho MD [address] [facility] [address] [place] [address] 11/03/2025 12:30 PM EST Appointment Cardiac Imaging [address] [place] [address] 11/03/2025 2:00 PM EST Appointment Cardiac Imaging [address] [place] [address] 11/08/2025 10:00 AM EST Office Visit [facility] [place] [address] [facility], [address] [place] [address] Svetlana Olguin PA [address] [place] [address] 01/26/2026 11:00 AM EDT Office Visit [facility] [address] [place] [address] Luis Olivares MD [address] [address] documented as of this encounter Visit Diagnoses Not on filedocumented in this encounter Additional Health Concerns Infection Onset Date Last Indicated Resolved Time MRSA Comment:Added from external infection. Source: [facility]. 09/07/2019 Assessment Noted Time PHQ-9 Depression Total Score: 0 04/24/20 25 1:50 PM EDT A fall risk assessment has been complete d for the patient 07/26/2025 10:52 AM EST A Body Mass Index follow-up plan has been documented for the patient 07/26/2025 11:46 AM EST documented as of this encounter Care Teams Stock Layer Relationship Specialty Start Date End Date Heladio Palm MD [address] [place] [address] PCP - General Internal Medicine 05/02/22 documented as of this encounter
--- OUTSIDE RECORDS SUMMARY | 2025-08-07 13:15 | XMS_ITS | Encounter Summary ---
Author Organization Healthcare Address [address] [place] [address] Care Team Providers Care Configuration Engineer Name Role Phone Heladio Palm MD Primary Care Provider + [phone] Encounter Details Date Type Department Care Team (Latest Contact Info) Description 07/25/2025 Travel Social History Tobacco Use Types Packs/Day [...] Upcoming Encounters Date Type Department Care Team ( st Contact Info) Description 08/14/2025 1:30 PM EST Office Visit [facility] [address] [place] [address] 10/03/2025 2:40 PM EST Office Visit [facility] Nephrology, Bone & Mineral Metabolism [address] [facility], [address] [place] [address] Alejandra Camacho MD [address] [facility] [address] [place] [address] 11/03/2025 12:30 PM EST Appointment Cardiac Imaging [address] [place] [address] 11/03/2025 2:00 PM EST Appointment Cardiac Imaging [address] [place] [address] 11/08/2025 10:00 AM EST Office Visit [facility] [place] [address] [facility], [address] [place] [address] Svetlana Olguin PA [address] [place] [address] 01/26/2026 11:00 AM EDT Office Visit [facility] [address] [place] [address] Luis Olivares MD [address] [place] [address] documented as of this encounter Visit Diagnoses Not on filedocumented in this encounter Additional Health Concerns Infection Onset Date Last Indicated Resolved Time MRSA Comment:Added from external infection. Source: [facility]. 09/07/2019 Assessment Noted Time PHQ-9 Depression Total Score: 0 04/24/20 25 1:50 PM EDT A fall risk assessment has been complete d for the patient 06/05/2025 4:07 PM EDT A Body Mass Index follow-up plan has been documented for the patient 06/08/2025 11:44 AM EDT documented as of this encounter Care Teams Configuration Engineer Relationship Specialty Start Date End Date Heladio Palm MD [address] [place] [address] PCP - General Internal Medicine 05/02/22 documented as of this encounter
--- OUTSIDE RECORDS SUMMARY | 2025-08-07 13:15 | XMS_ITS | Encounter Summary ---
Author Organization Healthcare Address [address] [place] [address] Care Team Providers Care Hydrographic Engineer Name Role Phone Heladio Palm MD Primary Care Provider + [phone] Encounter Details Date Type Department Care Team ([facility] st Contact Info) Description 07/24/2025 Telephone [facility] [place] [address] [facility]. [address] [place] [address] Bryan Allen MD [address] [place] [address] Social History Tobacco Use Types Packs/Day Years [...] encounter Miscellaneous Notes * Telephone Encounter - Josephine Solorio Thomas - 07/24/2025 4:24 PM EST Clinical Concern/Question Reason for Call: Pt had a Watchman placed and now has an order in for a heart cath of the left heart ordered by her cardiology [place]. Pt wants to know if it is too soon after having her Watchman placement to have a cath done. Pt also want a referral to establish cardiac care at . Best contact number: [phone] (home) Optimal time of day to reach [...] Upcoming Encounters Date Type Department Care Team ([facility] st Contact Info) Description 08/14/2025 1:30 PM EST Office Visit [facility] [address] [place] [address] 10/03/2025 2:40 PM EST Office Visit Professional [employer] [place] Nephrology, Bone & Mineral Metabolism [address] [facility], [address] [place] [address] Alejandra Camacho MD [address] [facility] [address] [place] [address] 11/03/2025 12:30 PM EST Appointment Cardiac Imaging [address] [place] [address] 11/03/2025 2:00 PM EST Appointment Cardiac Imaging [address] [place] [address] 11/08/2025 10:00 AM EST Office Visit [facility] [place] [address] [facility], [address] [place] [address] Svetlana Olguin PA [address] [place] [address] 01/26/2026 11:00 AM EDT Office Visit [facility] [address] [facility] [place] [address] Luis Olivares MD [address] [facility] [address] [place] [address] documented as of this encounter Visit Diagnoses Not on filedocumented in this encounter Additional Health Concerns Infection Onset Date Last Indicated Resolved Time MRSA Comment:Added from external infection. Source: [facility]. 09/07/2019 Assessment Noted Time PHQ-9 Depression Total Score: 0 04/24/20 25 1:50 PM EDT A fall risk assessment has been complete d for the patient 06/05/2025 4:07 PM EDT A Body Mass Index follow-up plan has been documented for the patient 06/08/2025 11:44 AM EDT documented as of this encounter Care Teams Hydrographic Engineer Relationship Specialty Start Date End Date Heladio Palm MD [address] [place] [address] PCP - General Internal Medicine 05/02/22 documented as of this encounter
--- OUTSIDE RECORDS SUMMARY | 2025-08-07 13:15 | XMS_ITS | Encounter Summary ---
Author Organization Healthcare Address [address] [place] [address] Care Team Providers Care Hose Tester Name Role Phone Heladio Palm MD Primary Care Provider + [phone] Encounter Details Date Type Department Care Team ([facility] Contact Info) Description 11/03/2024 Orders Only External Location [address] [place] [address] Provider, External Social History Tobacco [...] Department Care Team (Late Contact Info) Description 08/14/2025 1:30 PM EST Office Visit [facility] [address] [place] [address] 10/03/2025 2:40 PM EST Office Visit [facility] Nephrology, Bone & Mineral Metabolism [address] [facility], [address] [place] [address] Alejandra Camacho MD [address] [place] [address] 11/03/2025 12:30 PM EST Appointment Cardiac Imaging [address] [place] [address] 11/03/2025 2:00 PM EST Appointment Cardiac Imaging [address] [place] [address] 11/08/2025 10:00 AM EST Office Visit [facility] [place] [address], [address] [place] [address] Svetlana Olguin PA [address] [place] [address] 01/26/2026 11:00 AM EDT Office Visit [facility] [address] [facility] [address] Luis Olivares MD [address] [facility] [address] [place] [address] documented as of this encounter [...] Time MRSA Comment:Added from external infection. Source: [facility] [employer] [facility]. 09/07/2019 Assessment Noted Time PHQ-9 Depression Total Score: 12 023 12:53 PM EDT A fall risk assessment has been complete d for the patient 08/08/2024 12:49 PM EST A Body Mass Index follow-up plan has been documented for the patient 08/18/2024 8:26 PM EST documented as of this encounter Care Teams Hose Tester Relationship Specialty Start Date End Date Heladio Palm MD [address] [place] [address] PCP - General Internal Medicine 05/02/22 documented as of this encounter
--- OUTSIDE RECORDS SUMMARY | 2025-08-07 13:15 | XMS_ITS | Encounter Summary ---
Author Organization Healthcare Address [address] [place] [address] Care Team Providers Care Solid Tire Tuber Machine Operator Name Role Phone Heladio Palm MD Primary Care Provider + [phone] Reason for Visit * Reason Comments Med Refill Encounter Details Date Type Department Care Team (Late st Contact Info) Description 05/05/2024 Refill [facility] [place] 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 Social History Tobacco [...] [facility] [address] [place] [address] 10/03/2025 2:40 PM EST Office Visit [facility] Nephrology, Bone & Mineral Metabolism [address] [facility], [address] [place] [address] Alejandra Camacho MD [address] [facility] [address] [place] [address] 11/03/2025 12:30 PM EST Appointment Cardiac Imaging [address] [place] [address] 11/03/2025 2:00 PM EST Appointment Cardiac Imaging [address] [place] [address] 11/08/2025 10:00 AM EST Office Visit [facility] [place] [address] [facility], [address] [place] [address] Svetlana Olguin PA [address] [place] [address] 01/26/2026 11:00 AM EDT Office Visit [facility] [address] [place] [address] Luis Olivares MD [address] [address] documented as of this encounter Visit Diagnoses Diagnosis 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 Source: [facility] [employer] [facility]. 09/07/2019 Assessment Noted Time PHQ-9 Depression Total Score: 12 023 12:53 PM EDT A fall risk assessment has been complete d for the patient 02/08/2024 3:04 PM EDT A Body Mass Index follow-up plan has been documented for the patient 03/30/2024 2:46 PM EDT documented as of this encounter Care Teams Solid Tire Tuber Machine Operator Relationship Specialty Start Date End Date Heladio Palm MD [address] [place] [address] PCP - General Internal Medicine 05/02/22 documented as of this encounter
--- OUTSIDE RECORDS SUMMARY | 2025-08-07 13:15 | XMS_ITS | Encounter Summary ---
Author Organization Healthcare Address [address] [place] [address] Care Team Providers Care Carpet Tile Layer Name Role Phone Heladio Palm MD Primary Care Provider + [phone] Encounter Details Date Type Department Care Team ([facility] Contact Info) Description 07/20/2025 Telephone [facility] [address] [place] [address] Caroline Das, RN [facility]ST[facility] RADIOLOGY None Social History Tobacco Use Types Packs/Day Years [...] Upcoming Encounters Date Type Department Care Team ([facility] Contact Info) Description 08/14/2025 1:30 PM EST Office Visit [facility] [address] [place] [address] 10/03/2025 2:40 PM EST Office Visit [facility] [place] Nephrology, Bone & Mineral Metabolism [address] [facility], [address] [place] [address] Alejandra Camacho MD [address] [facility] [address] [place] [address] 11/03/2025 12:30 PM EST Appointment Cardiac Imaging [address] [place] [address] 11/03/2025 2:00 PM EST Appointment Cardiac Imaging [address] [place] [address] 11/08/2025 10:00 AM EST Office Visit [facility] [place] [address] [facility], [address] [place] [address] Svetlana Olguin PA [address] [place] [address] 01/26/2026 11:00 AM EDT Office Visit [facility] [address] [facility] [place] [address] Luis Olivares MD [address] [place] [address] [place] [address] documented as of this encounter Visit Diagnoses Not on filedocumented in this encounter Additional Health Concerns Infection Onset Date Last Indicated Resolved Time MRSA Comment:Added from external infection. Source: [facility]. 09/07/2019 Assessment Noted Time PHQ-9 Depression Total Score: 0 04/24/20 25 1:50 PM EDT A fall risk assessment has been complete d for the patient 06/05/2025 4:07 PM EDT A Body Mass Index follow-up plan has been documented for the patient 06/08/2025 11:44 AM EDT documented as of this encounter Care Teams Carpet Tile Layer Relationship Specialty Start Date End Date Heladio Palm MD [address] [place] [address] PCP - General Internal Medicine 05/02/22 documented as of this encounter
--- OUTSIDE RECORDS SUMMARY | 2025-08-07 13:16 | XMS_ITS | Encounter Summary ---
Author Organization Healthcare Address [address] [place] [address] Care Team Providers Care Rivet Flunky Name Role Phone Heladio Palm MD Primary Care Provider + [phone] Reason for Visit * Reason Onset Date Comments Med Refill 07/12/2025 Encounter Details Date Type Department Care Team (Late st Contact Info) Description 07/12/2025 Refill [facility] [place] [address] [facility]. [address] [place] [address] N[place] [address] Social History Tobacco Use Types Packs/Day Years [...] [facility] [address] [place] [address] 10/03/2025 2:40 PM EST Office Visit Professional [email or web address] [facility] Nephrology, Bone & Mineral Metabolism [address] [facility], [address] [place] [address] Alejandra Camacho MD [address] [facility] [address] [place] [address] 11/03/2025 12:30 PM EST Appointment Cardiac Imaging [address] [place] [address] 11/03/2025 2:00 PM EST Appointment Cardiac Imaging [address] [place] [address] 11/08/2025 10:00 AM EST Office Visit [facility] [place] [address] [facility], [address] [place] [address] Svetlana Olguin PA [address] [place] [address] 01/26/2026 11:00 AM EDT Office Visit [facility] [address] [facility] [place] [address] Luis Olivares MD [address] [facility] [address] [place] [address] documented as of this encounter Visit Diagnoses Not on filedocumented in this encounter Additional Health Concerns Infection Onset Date Last Indicated Resolved Time MRSA Comment:Added from external infection. Source: [facility]. 09/07/2019 Assessment Noted Time PHQ-9 Depression Total Score: 0 04/24/20 25 1:50 PM EDT A fall risk assessment has been complete d for the patient 06/05/2025 4:07 PM EDT A Body Mass Index follow-up plan has been documented for the patient 06/08/2025 11:44 AM EDT documented as of this encounter Care Teams Rivet Flunky Relationship Specialty Start Date End Date Heladio Palm MD [address] [place] [address] PCP - General Internal Medicine 05/02/22 documented as of this encounter
--- OUTSIDE RECORDS SUMMARY | 2025-08-07 13:16 | XMS_ITS | Encounter Summary ---
Author Organization Healthcare Address [address] [place] [address] Care Team Providers Care Flow Coordinator Name Role Phone Heladio Palm MD Primary Care Provider + [phone] Encounter Details Date Type Department Care Team (Latest Contact Info) Description 07/13/2025 Travel Social History Tobacco Use Types Packs/Day [...] [facility] [address] [place] [address] 10/03/2025 2:40 PM EST Office Visit [facility] Nephrology, Bone & Mineral Metabolism [address] [facility], [address] [place] [address] Alejandra Camacho MD [address] [facility] [address] [place] [address] 11/03/2025 12:30 PM EST Appointment Cardiac Imaging [address] [place] [address] 11/03/2025 2:00 PM EST Appointment Cardiac Imaging [address] [place] [address] 11/08/2025 10:00 AM EST Office Visit [facility] [place] [address], [address] [place] [address] Svetlana Olguin PA [address] [place] [address] 01/26/2026 11:00 AM EDT Office Visit [facility] [address] [facility] [place] [address] Luis Olivares MD [address] [place] [address] documented as of this encounter Visit Diagnoses Not on filedocumented in this encounter Additional Health Concerns Infection Onset Date Last Indicated Resolved Time MRSA Comment:Added from external infection. Source: [facility] 09/07/2019 Assessment Noted Time PHQ-9 Depression Total Score: 0 04/24/20 25 1:50 PM EDT A fall risk assessment has been complete d for the patient 06/05/2025 4:07 PM EDT A Body Mass Index follow-up plan has been documented for the patient 06/08/2025 11:44 AM EDT documented as of this encounter Care Teams Flow Coordinator Relationship Specialty Start Date End Date Heladio Palm MD [address] [place] [address] PCP - General Internal Medicine 05/02/22 documented as of this encounter
--- OUTSIDE RECORDS SUMMARY | 2025-08-07 13:16 | XMS_ITS | Clinical Summary ---
Author Organization [facility] Address [address] [place] [address] Care Team Providers Care Capacitor Tester Name Role Phone Heladio Palm MD Primary Care Provider + [phone] Allergies Active Allergy Reactions Criticality Noted Date [...] tablet Take 1 tablet by mouth daily. 03/01/20 Active venlafaxine (Effoxor) 100 MG tablet Take 1 tablet by mouth daily. 04/19/20 Active cholecalcifer ol (Vitamin D3) 25 MCG (1000 UT) tablet Take 1 tablet by mouth daily. Active magnesium oxide (Mag-Ox) 400 (240 Mg) MG tablet Take 1 tablet by mouth daily. Active clopidogrel (Plavix) 75 MG tablet Take 1 tablet by mouth daily. 07/01/20 Active biotin 1000 MCG tablet 1 (one) time each day at the same time. 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 90 tablet 3 01/15/20 23 Active dapagliflozin (Farxiga) 10 MG tablet Take 1 tablet by mouth daily. Active acetaminophen (Tylenol 8 Hour) 650 MG ER tablet Take 1 tablet by mouth every 8 hours as needed for mild pain. Do not crush, chew, or split. Active furosemide (Lasix) 40 MG tablet Take 1 tablet by mouth daily. 04/18/20 25 Active fexofenadine (Manju) 180 MG tablet Take 1 tablet by mouth daily. Active aspirin 81 MG EC tablet Take 1 tablet by mouth daily. 05/30/20 25 026 Active carvedilol (Coreg) 12.5 MG tablet 05/15/20 25 Active dilTIAZem CD (Cardizem CD) 180 MG 24 hr capsule take 1 capsule by mouth nightly at bedtime 05/31/20 25 Active Ozempic, 0.25 or 0.5 MG/DOSE, 2 MG/3ML solution pen-injector 0.25mg subcutaneous weekly Active pantoprazole (Protonix) 40 MG EC tablet 06/07/20 25 Active losartan (Cozaar) 50 MG tablet 06/07/20 Active dilTIAZem CD (Cardizem CD) 240 MG 24 hr capsule Take 1 capsule by mouth nightly. 04/14/20 25 025 Discontinued(P er Patient Report) predniSONE (Deltasone) 50 MG tablet Please take one tablet 13 hours, seven hours, and one hour prior to receiving IV Contrast. 3 tablet 2 07/12/20 025 Discontinued(R eorder) diphenhydrAMI NE (Benadryl) 50 MG tablet Please tablet one tablet prior to receiving IV Contrast 1 tablet 2 07/12/20 25 025 Discontinued(R eorder) diphenhydrAMI NE (Benadryl) 50 MG tablet Please tablet one tablet prior to receiving IV Contrast 1 tablet 2 07/13/20 25 025 Discontinued predniSONE (Deltasone) 50 MG tablet Please take one tablet 13 hours, seven hours, and one hour prior to receiving IV Contrast. 3 tablet 2 07/13/20 025 Discontinued Active Problems Problem Noted Date [...] Encounters Date Type Department Care Team Description 07/28/2025 1:00 PM EST Office Visit [facility] 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 [place] [address] Bryan Allen MD 07/20/2025 Telephone [facility] [address] [place] [address] Caroline Das RN 07/19/2025 11:58 AM EST - 07/19/2025 11:59 PM EST Hospital Encounter [facility] [address] [place] [address] Presence of Watchman left atrial appendage closure device; Paroxysmal atrial fibrillation (CMS/HCC) Discharge Disposition: Home or Self Care 07/19/2025 Travel 07/13/2025 Travel 07/13/2025 [facility] [place] [address] [place] [address] Sher Nola 07/12/2025 [facility] [place] [address] [place] [address] Christos Nola 07/12/2025 Telephone [facility] [address] [place] [address] Ileana Miller RN 06/05/2025 4:00 PM EDT Office Visit [facility] Nephrology, Bone & Mineral Metabolism [address], [address] [place] [address] Alejandra Camacho MD Hyperparathyroidism, unspecified ([facility]) (Primary Dx); Stage 3 chronic kidney disease, unspecified whether stage 3a or 3b CKD ([facility]); Type 2 diabetes mellitus with other specified complication, without long-term current use of insulin ([facility]); Essential hypertension 06/05/2025 Travel 06/01/2025 Travel 06/01/2025 Telephone [facility]phrology, Bone & Mineral Metabolism [address], [address] [place] [address] Lashonda William, LAB ASSISTANT 05/30/2025 9:15 AM EDT - 05/30/2025 10:55 AM EDT Surgery Cardiac Mobile Patrol Officer [address] [place] [address] Bryan Allen MD Left atrial appendage closure (transvenous) [54604 (CPT )] 05/30/2025 8:00 AM EDT - 05/30/2025 4:43 PM EDT Hospital Encounter Cardiac Mobile Patrol Officer [address] [place] [address] Bryan Allen MD Paroxysmal atrial fibrillation ([facility]) Discharge Disposition: Home or Self Care 05/30/2025 Travel 05/25/2025 Telephone [facility] Nephrology, Bone & Mineral Metabolism [address], [address] [place] [address] Lashonda William, LAB ASSISTANT 05/23/2025 Travel from Last 3 Months Immunizations Immunization Administration Dates Next Due Influenza Vaccine, Quadrival ent, Adjuvanted 06/27/2021 Influenza, High-dose, Split Virus, Trivalent, Injectable, preservative free 05/25/2025,07/19/2024 Influenza, Unspecified 06/19/2016,2014,07/06/2014,2012,06/21/2012,06/27/2011 Influenza, high-dose, quadrivalent 07/03,06/04/2020,09/17/2018,2018 Influenza, injectable, quadr ivalent, preservative free 06/05/2017 Influenza, trivalent, adjuvanted 06/24/2019 Moderna COVID-19 Vaccine (Re d Cap) 12+ years 06/27/2021,11/01/2020,10/04/2020 Pneumococcal Conjugate PCV 13 05/27/2016 Rsvpref, Recombinant, Protei n Subunit, Adjuvent 04/19/2024 Tdap 03/02/2025 Zoster, Recombinant 04/19/2024 Zoster, live 04/23/2017 Family History 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 Relation Name Comments Abnormal EKG Father Dad Alcohol abuse Father Dad Angina Father Dad Conversions - Other Father Dad Myocardi al Infarction Arrhythmias Heart attack Father Dad Heart disease Father Dad Heart failure Father Dad Hypertension Father Dad Lung disease Father Dad lung mass Father Dad Alzheimer's disease Mother Mom Clotting disorder Mother Mom Conversions - Other Mother Mom [...] Pulse 86 07/28/2025 12:52 PM EST Temperature 36.7 C (98 F) 06/05/2025 3:57 PM EDT Respiratory Rate 17 05/30/2025 4:00 PM EDT Oxygen Saturation 93% 07/28/2025 12:52 PM EST Inhaled Oxygen Concentration - - Weight 103 kg (227 lb 1.2 oz) 07/28/2025 12:52 P M EST Height 154.9 cm (5' 1 ) 07/28/2025 12:52 PM EST Body Mass Index 42.91 07/28/2025 12:52 PM EST Plan of Treatment Upcoming Encounters Date Type Department Care Team (Late st Contact Info) Description 08/14/2025 1:30 PM EST Office Visit [facility] [address] [place] [address] 10/03/2025 2:40 PM EST Office Visit [facility] [place] [facility] Metabolism [address], [address] [place] [address] Alejandra Camacho MD [address] [place] [address] 11/03/2025 12:30 PM EST Appointment Cardiac Imaging [address] [place] [address] 11/03/2025 2:00 PM EST Appointment Cardiac Imaging [address] [place] [address] 11/08/2025 10:00 AM EST Office Visit [facility] [place] [address], [address] [place] [address] Svetlana Olguin PA [address] [place] [address] 01/26/2026 11:00 AM EDT Office Visit [facility] [address] [place] [address] Luis Olivares MD [address] [place] [address] Health Maintenance Due Date Last Done Comments [facility]-Bone Density Scan 1950 [facility]-Medicare Annual Wellness (AWV) 1950 [facility]-Infant/Child/Adol SDOH Screenings 1950 Diabetes: Dental Exam 1959 [facility]- SDOH Screenings 1967 [facility]-Adult SDOH Screenings 1967 [facility]-Hepatitis A Vaccines (1 of 2 - Risk 2-dose series) 02/02/1968 [facility]-Pneumococcal Vaccine: 50+ Years (2 of 2 - PPSV23, PCV20, or PCV21) 07/22/2016 05/27/2016 [facility]-Diabetes: Hemoglobin A1C 05/22/2020 11/23/2019, 11/23/2019, 09/07/2019, Additional history exists [facility]-Zoster Vaccines (3 of 3) 06/14/2024 04/19/2024, 04/23/2017 NZ[facility]-YWHDR-66 Vaccine (4 - season) 2025 06/27/2021, 11/01/2020, 10/04/2020 [facility]-Depression Screening 07/28/2026 07/28/2025, 07/09 [facility]-DTaP,Tdap,and Td Vaccines (2 - Td or Tdap) 03/02/2035 03/02/2025 [facility]-Hepatitis C Screening Completed 12/13/2019, [facility]-Breast Cancer Screening Discontinued 11/28/2021, 11/28/2021, 11/30/2018, Additional history exists [facility]-RSV Vaccine: 60+ Years or Completed 04/19/2024 [facility]-Influenza Vaccine Completed 05/25/2025 , 07/19/2024, 07/03/2022, Additional history exists [facility]-Obesity Intervention Completed 025, 07/26/2025, 06/05/2025, Additional history exists HPV Vaccines Aged Out [...] this topic Medical Devices Implanted Type Area Complaint Investigations Officer Device Identifier Shelf Expiration Date Model / Serial / Lot Watchman Fxd Curve Dble 20mm - [id number] Implanted:Qty : 1 on 05/30/2025 by Bryan Allen MD at [facility] [employer]-[id number] 85 03/06/2028 [id number] / / [id number] Device Watchman Flx Pro Shaunna Closure 24mm - [id number] Implanted:Qty : 1 on 05/30/2025 by Bryan Allen MD at [facility] [employer]-[id number] 02/23/2028 [id number] / / [id number] Device Watchman Flx Pro Procedure - [id number] - [id number] Implanted:Qty : 1 on 05/30/2025 by Bryan Allen MD at [facility] [employer]-[id number] 85 02/23/2028 [id number] / [id number] / Procedures Procedure Name Priority Date/Time Associated Diagnosis Comments ECG ADULT Routine 07/28/2025 1:06 PM EST Paroxysmal atrial fibrillation (CMS/HCC) CT ANGIO CARDIAC STRUCTURE MORPHOLOGY Routine 07/19/2025 1:10 PM EST Presence of Watchman left atrial appendage closure device Paroxysmal atrial fibrillation (CMS/HCC) POCT CREATININE ISTAT UNSOLICITED RESULTS Routine 07/19/2025 12:11 PM EST ECHO, ADULT TRANSESOPHAGEAL INTRAPROCEDURAL W/ 3D Routine [...] Recently Relevant to Health Maintenance Results * ECG Adult (Now - Performed in your clinic) (07/28/2025 1:06 PM EST) EKG DIAGNOSIS CLASS Abnormal MUSE ECG Ventricular Rate 73 BPM MUSE ECG QRSD Interval 80 ms MUSE ECG QT Interval 334 ms MUSE ECG QTC Interval 367 ms MUSE ECG R [place] 70 degrees MUSE ECG T Wave [place] 174 degrees MUSE ECG Diagnosis Atrial fibrillation MUSE ECG Diagnosis Nonspecific T wave abnormality MUSE ECG Diagnosis MUSE ECG Diagnosis MUSE ECG Diagnosis Confirmed by Dena Herron ([id number]) on 07/28/2025 3:11:18 PM MUSE ECG 07/28/2025 1:06 PM EST 07/28/2025 3:11 PM EST us Bryan Allen MD ECG ORDERABLES Final Resu lt MUSE ECG * CT Angio Cardiac Structure Morphology (07/19/2025 [...] was reviewed interactively on an advanced workstation (Cono-C) capable of 2 and 3 dimensional displays [...] 192 MDCT scanner (Somatom Force, [employer])was used for data acquisition. Bolus tracking [...] Data was reviewed interactively on an advanced workstation(Cono-C) capable of 2 and 3 dimensional displays [...] signing this report, I, the attending physician, kingsley I have personally reviewed the images/data for the aboveexamination(s) and agree with the final edited report. Drafted by Tru Olson on 07/19/2025 1:12 PM Final report signed by Lavelle Mccarthy MD on 07/20/2025 7:24 AM S[address]ana GORDON IMG CT PROCEDURES Final Result * POCT creatinine (07/19/2025 12:11 PM EST) Only the most recent of2 resultswithin the time period is included. Creatinine, Point of Care 1.1 0.6 - 1.1 mg/dL 07/19/2025 12:14 PM EST [facility] POCT eGFR 52 mL/min/1. 73m*2 07/19/2025 12:14 PM EST [facility] Indian Nanny ID Genet Mccarthy Sachi 07/19/2025 12:14 PM EST [facility] Device ID [id number] 07/19/2025 12:14 PM EST [facility] Comment 07/19/2025 12:14 PM EST [facility] Comment:Testing performed on i-STAT at the point of care. Reported eGFRcr in mL/min/1.73m2 is based the CKD-EPI 2020 equation that does not use a race coefficient. Blood Venous blood specimen / Unknown 07/19/2025 12:11 PM EST 07/19/2025 12:14 PM EST us Generic Provider Poct LAB POINT OF CARE TEST DOCKED DEVICE UNSOLICITED RESULTS Final Result [facility] [address] [place], [place] [id number] [place] [address] LAB [address] [place] [address] * ECHO, ADULT TRANSESOPHAGEAL INTRAPROCEDURAL W/ 3D [...] captured. The probe was inserted by the researcher. There was no probe insertion difficulty. Moderate [...] is no recent study available for direct [id number] comparison. us Bryan Allen MD CV ECHO [...] Procedure Details Background Information: The patient is [id number] woman with atrial fibrillation, hypertension, diabetes mellitus, [...] was obtained: 1) Right common femoral vein: 8-Uzbek short Terumo sheath (preclose deployed) Antibiotics were given. Heparin for ACT>250 was given. The 8-Uzbek sheath was exchanged for an 8.5-Uzbek, 63 cm, 45-degree curve VersaCross sheath. The [...] removed over the pigtail wire. The Watchman 14-Uzbek double curve sheath was then advanced over the wire into the left atrium. A 6-Uzbek Pigtail catheter was advanced through the sheath [...] * POCT ACT (05/30/2025 11:25 AM EDT) [facility] ACT (Low Range) 287 65 - 400 seconds 06/23/2025 2:08 PM EDT HEALTHCARE [facility] Indian Nanny ID Josephnie Mathew 06/23/2025 2:08 PM EDT [facility] ACT Device ID [id number] 06/23/2025 2:08 PM EDT HEALTH[facility]ARE LAB Comment 06/23/2025 2:08 PM EDT [facility] Comment: ACT performed by staff [...] TEST DOCKED DEVICE UNSOLICITED RESULTS Final Result [facility] [address] LAB [address] [place] [address] * Hemogram (CBC) (05/30/2025 8:57 AM EDT) WBC Count 8.97 3.70 - 10.30 10*3/uL LAB HEMATOLOGY METHOD 05/30/2025 9:19 AM EDT [facility] RBC Count 4.72 3.90 - 5.20 10*6/uL LAB HEMATOLOGY METHOD 05/30/2025 9:19 AM EDT [facility] HGB 14.4 11.2 - 15.7 g/dL LAB HEMATOLOGY METHOD 05/30/2025 9:19 AM EDT [facility] HCT 43.8 34.0 - 45.0 % LAB HEMATOLOGY METHOD 05/30/2025 9:19 AM EDT [facility] Platelet Count 249 155 - 369 10*3/uL LAB HEMATOLOGY METHOD 05/30/2025 9:19 AM EDT [facility] MCV 93 79 - 98 fL LAB HEMATOLOGY METHOD 05/30/2025 9:19 AM EDT [facility] MCH 30.5 26.0 - 32.0 pg LAB HEMATOLOGY METHOD 05/30/2025 9:19 AM EDT [facility] MCHC 32.9 30.7 - 35.5 g/dL LAB HEMATOLOGY METHOD 05/30/2025 9:19 AM EDT [facility] RDW 13.0 11.5 - 14.5 % LAB HEMATOLOGY METHOD 05/30/2025 9:19 AM EDT [facility] MPV 9.8 8.8 - 12.5 fL LAB HEMATOLOGY METHOD 05/30/2025 9:19 AM EDT [facility] nRBC 0.0 <=0.0 per 100 WBCs LAB HEMATOLOGY METHOD 05/30/2025 9:19 AM EDT [facility] Blood Venous blood specimen / Unknown Venipuncture / Unknown 05/30/2025 8:57 AM EDT 05/30/2025 9:11 AM EDT Jignesh GORDON LAB BLOOD ORDERABLES Final R esult Performing Organization Address City/[facility]/ZIP Co de Phone Number [facility] [address] [place] [address] * (ABNORMAL) Magnesium (05/30/2025 8:57 AM EDT) Magnesium, Plasma 1.8(L) 1.9 - 2.4 mg/dL 05/30/2025 9:37 AM EDT [facility] Blood Venous blood specimen / Unknown Venipuncture / Unknown 05/30/2025 8:57 AM EDT 05/30/2025 9:09 AM EDT Jignesh Olvera PA LAB BLOOD ORDERABLES Final R esult [facility] [address] [place] [address] * (ABNORMAL) Basic metabolic panel (05/30/2025 8:57 AM EDT) Glucose, Plasma 271(H) 74 - 99 mg/dL 05/30/2025 9:37 AM EDT [facility] BUN, Plasma 27(H) 8 - 23 mg/dL 05/30/2025 9:37 AM EDT [facility] Creatinine, Plasma 1.10 0.60 - 1.10 mg/dL 05/30/2025 9:37 AM EDT [facility] BUN/Creatinine Ratio 25 05/30/2025 9:37 AM EDT [facility] Sodium, Plasma 138 136 - 145 mmol/L 05/30/2025 9:37 AM EDT [facility] Potassium, Plasma 4.7 3.6 - 4.9 mmol/L 05/30/2025 9:37 AM EDT [facility] Comment:Hemolyzed, result ma y be falsely increased. Chloride, Plasma 102 97 - 107 mmol/L 05/30/2025 9:37 AM EDT [facility] CO2, Plasma 22 22 - 29 mmol/L 05/30/2025 9:37 AM EDT [facility] Anion Gap 14 6 - 16 mmol/L 05/30/2025 9:37 AM EDT [facility] Total Calcium, Plasma 9.8 8.9 - 10.2 mg/dL 05/30/2025 9:37 AM EDT [facility] eGFRcr 52.2 mL/min/1.7 3m*2 05/30/2025 9:37 AM EDT [facility] Comment:Reported eGFRcr in m L/min/1.73m2 is based the CKD-EPI 2020 equation that does not use a race coefficient. Blood Venous blood specimen / Unknown Venipuncture / Unknown 05/30/2025 8:57 AM EDT 05/30/2025 9:09 AM EDT us Jignesh GORDON LAB BLOOD ORDERABLES Final R esult [facility] [address] [place] [address] * Hepatitis C Antibody (12/13/2019 6:01 PM EDT) Hepatitis C Antibody NEGATIVE Reference Range: Negative [facility] 12/13/2019 6:01 PM EDT 12/13/2019 6:08 PM [...] <6.0% Children and Adolescents <7.5% . Source: [place] [employer]. Standards of medical care in diabetes, 2017. Diabetes Care.2017:40 (suppl 1):S1-S135. . HbA1c assay performed by an ion-exchange chromatography method that is certified traceable to the DCCT. 11/23/2019 2:45 PM EDT 11/23/2019 2:59 PM EDT Deng Brumfield [employer]SE [employer]AN[employer] LAB BLOOD ORDERABLES Fadia ramirez Result SUNQUEST from Last 3 Months or Most Recently Relevant to Health Maintenance Additional Health Concerns Infection Onset Date Last Indicated MRSA Comment:Added from external infection. Source: [facility]. 09/07/2019 Insurance MEDICARE A[employer] Advance Directives * Full Code (Latest Code Status on File) Date Activated Date Inactivated Comments 05/30/2025 12:19 PM 05/30/2025 6:48 PM Question Answer Comments Patient has decision-making capacity? Yes Care Teams Capacitor Tester Relationship Specialty Start Date End Date Heladio Palm MD [address] [place] [address] PCP - General Internal Medicine 05/02/22
--- OUTSIDE RECORDS SUMMARY | 2025-08-07 13:16 | XMS_ITS | Encounter Summary ---
Author Organization Healthcare Address [address] [place] [address] Care Team Providers Care Hazard Mitigation Officer Name Role Phone Heladio Palm MD Primary Care Provider + [phone] Encounter Details Date Type Department Care Team (Latest Contact Info) Description 07/28/2025 Travel Social History Tobacco Use Types Packs/Day [...] Not at all 07/28/2025 12:57 PM EST Cindy, Emmie Feeling down, depressed, or hopeless Not at [...] Emmie Drew documented as of this encounter Plan of Treatment Upcoming Encounters Date Type Department Care Team (Late st Contact Info) Description 08/14/2025 1:30 PM EST Office Visit [facility] [address] [place] [address] 10/03/2025 2:40 PM EST Office Visit [facility] [place] [facility] [address], [address] [place] [address] Alejandra Camacho MD [address] [facility] [address] [facility] [address] [place] [address] 11/03/2025 12:30 PM EST Appointment Cardiac Imaging [address] [place] [address] 11/03/2025 2:00 PM EST Appointment Cardiac Imaging [address] [place] [address] 11/08/2025 10:00 AM EST Office Visit [facility] [address], [address] [place] [address] Svetlana Olguin PA [address] [place] [address] 01/26/2026 11:00 AM EDT Office Visit [facility] [address] [facility] [facility] [place] [address] Luis Olivares MD [address] [facility] [address] [place] [address] documented as of this encounter Visit Diagnoses Not on filedocumented in this encounter Additional Health Concerns Infection Onset Date Last Indicated Resolved Time MRSA Comment:Added from external infection. Source: [facility]. 09/07/2019 Assessment Noted Time PHQ-9 Depression Total Score: 0 07/28/20 25 12:57 PM EST A fall risk assessment has been complete d for the patient 07/28/2025 12:57 PM EST A Body Mass Index follow-up plan has been documented for the patient 07/28/2025 1:43 PM EST documented as of this encounter Care Teams Hazard Mitigation Officer Relationship Specialty Start Date End Date Heladio Palm MD [address] [place] [address] PCP - General Internal Medicine 05/02/22 documented as of this encounter
--- OUTSIDE RECORDS SUMMARY | 2025-08-07 13:16 | XMS_ITS | Encounter Summary ---
Author Organization Healthcare Address [address] [place] [address] Care Team Providers Care Station Captain Name Role Phone Heladio Palm MD Primary Care Provider + [phone] Reason for Visit * Reason Onset Date Comments Med Refill 07/13/2025 Encounter Details Date Type Department Care Team (Late st Contact Info) Description 07/13/2025 Refill [facility] [place] [address] [facility] [place] [address] Nola Sher [address] Social History Tobacco Use Types Packs/Day Years [...] [facility] [address] [place] [phone] 10/03/2025 2:40 PM EST Office Visit [facility] [employer] [place] [facility] [address] [place] [address] Alejandra Camacho MD [address] [place] [address] 11/03/2025 12:30 PM EST Appointment Cardiac Imaging [address] [place] [address] 11/03/2025 2:00 PM EST Appointment Cardiac Imaging [address] [place] [address] 11/08/2025 10:00 AM EST Office Visit [facility] [place] [address], [address] [place] [address] Svetlana Olguin PA [address] [place] [address] 01/26/2026 11:00 AM EDT Office Visit [facility] [address] [place] [address] Luis Olivares MD [address] [facility] [address] [place] [address] documented as of this encounter Visit Diagnoses Not on filedocumented in this encounter Additional Health Concerns Infection Onset Date Last Indicated Resolved Time MRSA Comment:Added from external infection. Source: [facility]. 09/07/2019 Assessment Noted Time PHQ-9 Depression Total Score: 0 04/24/20 25 1:50 PM EDT A fall risk assessment has been complete d for the patient 06/05/2025 4:07 PM EDT A Body Mass Index follow-up plan has been documented for the patient 06/08/2025 11:44 AM EDT documented as of this encounter Care Teams Station Captain Relationship Specialty Start Date End Date Heladio Palm MD [address] [place] [address] PCP - General Internal Medicine 05/02/22 documented as of this encounter
--- OUTSIDE RECORDS SUMMARY | 2025-08-07 13:16 | XMS_ITS | Encounter Summary ---
Author Organization Healthcare Address [address] [place] [address] Care Team Providers Care Melting Supervisor Name Role Phone Heladio Palm MD Primary Care Provider + [phone] Encounter Details Date Type Department Care Team ([facility] Contact Info) Description 07/12/2025 Telephone [facility] [address] [place] [address] Ileana Miller RN [facility] None Social History Tobacco [...] Upcoming Encounters Date Type Department Care Team ([facility] Contact Info) Description 08/14/2025 1:30 PM EST Office Visit [facility] [address] [place] [id number] 10/03/2025 2:40 PM EST Office Visit [facility] [address] [facility], [address] [place] [address] Alejandra Camacho MD [address] [place] [address] 11/03/2025 12:30 PM EST Appointment Cardiac Imaging [address] [place] [id number] 11/03/2025 2:00 PM EST Appointment Cardiac Imaging [address] [place] [id number] 11/08/2025 10:00 AM EST Office Visit [facility] [place] [address] [facility], [address] [place] [address] Svetlana Olguin PA [address] [place] [address] 01/26/2026 11:00 AM EDT Office Visit [facility] [address] [place] [place] [address] Luis Olivares MD [address] [facility] [address] [place] [address] documented as of this encounter Visit Diagnoses Not on filedocumented in this encounter Additional Health Concerns Infection Onset Date Last Indicated Resolved Time MRSA Comment:Added from external infection. Source: [facility]. 09/07/2019 Assessment Noted Time PHQ-9 Depression Total Score: 0 04/24/20 25 1:50 PM EDT A fall risk assessment has been complete d for the patient 06/05/2025 4:07 PM EDT A Body Mass Index follow-up plan has been documented for the patient 06/08/2025 11:44 AM EDT documented as of this encounter Care Teams Melting Supervisor Relationship Specialty Start Date End Date Heladio Palm MD [address] [place] [address] PCP - General Internal Medicine 05/02/22 documented as of this encounter
== END 2025-08-07 23:59 ==
LOC: RAD 13:13
PROVIDERS: PCP Internal Medicine Adolescent Medicine; Visit Provider Internal Medicine Adolescent Medicine
DX: M81.0 Age-related osteoporosis without current pathological fracture (principal)
CPT/HCPCS: 77080